=== PATIENT | female | born 1940 | race Asian ===

== ENCOUNTER 2018-11-12 18:32 | Inpatient (IN) | payer MEDICARE, OTHER ==
[~2018-11-12] VITALS: Ht 157.5 cm; Wt 40.0 kg
[~2018-11-12 18:32] MED LIST: AMLODIPINE BESY10 MG ORAL; ATORVASTATIN CA10 MG ORAL; COREG6.25 MG ORAL; DEPAKOTE ER250 MG ORAL; EPOGEN20000 UNI1 SUBQ; FERROUS SULFAT325 MG ORAL; FOLIC ACID1 MG ORAL; HYDRALAZINE HCL50 MG ORAL; MIRTAZAPINE15 MG ORAL; QUETIAPINE FUM100 MG ORAL
--- NOTE | 2018-11-12 19:10 | Emergency Room Report ---
History of Present Illness General Chief Complaint: General Complaint Source: Medical Record, EMS Present Illness HPI Patient is a 78-year-old female [facility] after persistent infection to right lower extremity. Patient was noted to have been on oral antibiotics. Patient had been noted to have increased discomfort to her right leg. Patient had been sent in for further evaluation and treatment and possible IV antibiotics.Patient had been noted to have prior history of chronic debilitation. History is markedly limited by patient's mental status. History was obtained from old medical medical record. Allergies: Coded Allergies: No Known Allergies (Unverified , 11/12/18) Patient History Past Medical History: see triage record Now: No Reviewed Nursing Documentation: PMH: Agreed; PSxH: Agreed Nursing Documentation-PMH Past Medical History: No History, Except For Hx Hypertension: Yes Hx Diabetes: Yes Hx Dialysis: No - ACUTE KIDNEY FAILURE History Of Psychiatric Problem: Yes - SCHIZOPHRENIA, BIPOLAR, DEPRESSION Review of Systems All Other Systems: limited - by poor historian Physical Exam Vital Signs Date Time Temp Pulse Resp B/P (MAP) Pulse Ox O2 Delivery O2 Flow Rate FiO2 11/12/18 18:10 74 20 148/90 (109) 97 Room Air Procedures Incision and Drainage Incision and Drainage : Consent: Emergent Site: right thigh Blade Size: 11 I & D Procedure: betadine prep, sterile drapes applied, sterile dressing applied Wound Location: lower extremity Wound's Depth, Shape: into muscle Wound Length (cm): 3 Wound Explored: clean Irrigated w/ Saline (ccs): 60 Anesthesia: Lidocaine w/ Epi Volume Anesthetic (ccs): 8 Splint Applied?: No Patient Tolerated: Well Complications: None Progress Drained approximately 1 L of purulent material. Medical Decision Making Diagnostic Impression: Primary Impression: Abscess of right hip Additional Impressions: Renal insufficiency Dementia ER Course Patient presented for right sided skin infection. Differential diagnosis include was not limited to cellulitis, abscess, tumor, hematoma among others. Patient was noted to have a large fluctuant area to the right hip. laboratory testing was ordered. Dr. Nate Beltran was contacted for inpatient management. . Dr. James was contacted for surgical consult. Labs Test 11/12/18 18:40 White Blood Count 9.5 K/UL (4.8-10.8) Red Blood Count 3.22 M/UL (4.20-5.40) Hemoglobin 9.5 G/DL (12.0-16.0) Hematocrit 28.6 % (37.0-47.0) Mean Corpuscular Volume 89 FL (80-99) Mean Corpuscular Hemoglobin 29.5 PG (27.0-31.0) Mean Corpuscular Hemoglobin Concent 33.2 G/DL (32.0-36.0) Red Cell Distribution Width 13.2 % (11.6-14.8) Platelet Count 586 K/UL (150-450) Mean Platelet Volume 3.6 FL (6.5-10.1) Neutrophils (%) (Auto) 76.5 % (45.0-75.0) Lymphocytes (%) (Auto) 19.5 % (20.0-45.0) Monocytes (%) (Auto) 2.6 % (1.0-10.0) Eosinophils (%) (Auto) 0.5 % (0.0-3.0) Basophils (%) (Auto) 0.9 % (0.0-2.0) Urine Color Red Urine Appearance Cloudy Urine pH 7 (4.5-8.0) Urine Specific [place] 1.015 (1.005-1.035) Urine Protein 3+ (NEGATIVE) Urine Glucose (UA) Negative (NEGATIVE) Urine Ketones 1+ (NEGATIVE) Urine Blood 5+ (NEGATIVE) Urine Nitrite Negative (NEGATIVE) Urine Bilirubin Negative (NEGATIVE) Urine Urobilinogen Normal MG/DL (0.0-1.0) Urine Leukocyte Esterase 1+ (NEGATIVE) Urine RBC Tntc /HPF (0 - 2) Urine WBC 20-30 /HPF (0 - 2) Urine Squamous Epithelial Cells Few /LPF (NONE/OCC) Urine Bacteria Many /HPF (NONE) Sodium Level 133 MMOL/L (136-145) Potassium Level 4.8 MMOL/L (3.5-5.1) Chloride Level 99 MMOL/L (98-107) Carbon Dioxide Level 21 MMOL/L (21-32) Anion Gap 13 mmol/L (5-15) Blood Urea Nitrogen 67 mg/dL (7-18) Creatinine 5.4 MG/DL (0.55-1.30) Estimat Glomerular Filtration Rate mL/min (>60) Glucose Level 284 MG/DL (74-106) Lactic Acid Level 1.40 mmol/L (0.4-2.0) Calcium Level 10.1 MG/DL (8.5-10.1) Total Bilirubin 0.2 MG/DL (0.2-1.0) Aspartate Amino Transf (AST/SGOT) 44 U/L (15-37) Alanine Aminotransferase (ALT/SGPT) 32 U/L (12-78) Alkaline Phosphatase 121 U/L (46-116) Total Protein 9.1 G/DL (6.4-8.2) Albumin 2.7 G/DL (3.4-5.0) Globulin 6.4 g/dL Albumin/Globulin Ratio 0.4 (1.0-2.7) Last Vital Signs Date Time Temp Pulse Resp B/P (MAP) Pulse Ox O2 Delivery O2 Flow Rate FiO2 11/12/18 18:10 74 20 148/90 (109) 97 Room Air Celestine Louis MD November 12, 2018 19:10
[2018-11-12 19:15] VITALS: BP 148/90
[2018-11-12 19:15] LABS: APPEARANCE,URINE CLOUDY; BILIRUBIN, URINE NEGATIVE (NEGATIVE); COLOR,URINE RED; GLUCOSE, URINE (UA) NEGATIVE (NEGATIVE); KETONES,URINE 1+ (NEGATIVE); LEUKOCYTE ESTERASE ,URINE 1+ (NEGATIVE); NITRITE,URINE NEGATIVE (NEGATIVE); PH,URINE 7 (4.5-8.0); PROTEIN,URINE 3+ (NEGATIVE); UROBILINOGEN,URINE NORMAL MG/DL (0.0-1.0)
[2018-11-12 19:22] LABS: BASOPHILS % (AUTO) 0.9 % (0.0-2.0); EOSINOPHILS % (AUTO) 0.5 % (0.0-3.0); HEMATOCRIT 28.6 % (37.0-47.0); HEMOGLOBIN 9.5 G/DL (12.0-16.0); LYMPHOCYTES % (AUTO) 19.5 % (20.0-45.0); MEAN CORPUSCULAR VOLUME 89 FL (80-99); MONOCYTES % (AUTO) 2.6 % (1.0-10.0); NEUTROPHILS % (AUTO) 76.5 % (45.0-75.0); PLATELET COUNT 586 K/UL (150-450); RED BLOOD COUNT 3.22 M/UL (4.20-5.40); RED CELL DISTRIBUTION WIDTH 13.2 % (11.6-14.8); WHITE BLOOD COUNT 9.5 K/UL (4.8-10.8)
[2018-11-12 19:31] LABS: ANION GAP 13 mmol/L (5-15); BLOOD UREA NITROGEN 67 mg/dL (7-18); CALCIUM 10.1 MG/DL (8.5-10.1); CARBON DIOXIDE 21 MMOL/L (21-32); CHLORIDE 99 MMOL/L (98-107); CREATININE 5.4 MG/DL (0.55-1.30); POTASSIUM 4.8 MMOL/L (3.5-5.1); SODIUM 133 MMOL/L (136-145)
[2018-11-12 19:36] LABS: ALANINE AMINOTRANSFERASE 32 U/L (12-78); ALBUMIN 2.7 G/DL (3.4-5.0); ALBUMIN/GLOBULIN RATIO 0.4 (1.0-2.7); ALKALINE PHOSPHATASE 121 U/L (46-116); ASPARTATE AMINO TRANSFERASE 44 U/L (15-37); BILIRUBIN,TOTAL 0.2 MG/DL (0.2-1.0)
--- NOTE | 2018-11-12 20:29 | Consultation ---
History of Present Illness General Date patient seen: November 12, 2018 Reason for Hospitalization: General Complaint Present Illness HPI 78 year old female senior living resident with multiple medical comorbidities has had right hip cellulitis which has not improved with oral antibiotics. [place] [facility] [place] and considerations of IV Abx. Noted to have abscess in area of cellulitis. Initial I&D done by ED physician to evaluate for abscess and once significant pus evacuated surgery called to evaluate and assist with care. patient seen, chart reviewed, patient examined. she is awake , alert, and follow simple commands but not communicative. no n/v/f/c. no leukocytosis. HD stable. Allergies: Coded Allergies: No Known Allergies (Unverified , 11/12/18) Medication History Scheduled Amlodipine Besylate* (Amlodipine Besylate*), 10 MG ORAL DAILY, (Reported) Atorvastatin Calcium* (Lipitor*), 10 MG ORAL BEDTIME, (Reported) Carvedilol (Coreg), 6.25 MG ORAL EVERY 12 HOURS, (Reported) Divalproex Sodium* (Depakote Er*), 125 MG ORAL EVERY 12 HOURS, (Reported) Epoetin Thomas (Epogen), 5,000 UNIT SUBQ EVERY OTHER DAY, (Reported) Ferrous Sulfate* (Ferrous Sulfate*), 325 MG ORAL THREE TIMES A DAY, (Reported) Folic Acid* (Folic Acid*), 1 MG ORAL DAILY, (Reported) Hydralazine Hcl* (Hydralazine Hcl*), 50 MG ORAL EVERY 8 HOURS, (Reported) Mirtazapine* (Remeron*), 15 MG ORAL BEDTIME, (Reported) Quetiapine Fumarate* (Seroquel*), 100 MG ORAL QHS, (Reported) Patient History Limited by: age, medical condition History Provided By: Medical Record, PMD Healthcare decision maker Resuscitation status Advanced Directive on File Past Medical/Surgical History Past Medical/Surgical History: (1) Abscess of right hip Review of Systems Review of Symptoms cannot obtain given medical condition and neuro Physical Exam Physical Exam General appearance: alert, cooperative, no distress, appears stated age Head: Normocephalic, without obvious abnormality, atraumatic Eyes: conjunctivae/corneas clear. PERRL, EOM's intact. Fundi benign Throat: Lips, mucosa, and tongue normal. Teeth and gums normal Neck: supple, symmetrical, trachea midline, no adenopathy, thyroid: not enlarged, symmetric, no tenderness/mass/nodules, no carotid bruit and no JVD Lungs: clear to auscultation bilaterally Heart: regular rate and rhythm, S1, S2 normal, no murmur, click, rub or gallop Abdomen: soft, non-tender. Bowel sounds normal. No masses, no organomegaly Extremities: extremities normal, atraumatic, no cyanosis or edema. right hip with large area of erythema and cellulitis. small 1cm eschar noted at apex of abscess. Pulses: 2+ and symmetric Skin: Skin color, texture, turgor normal. No rashes or lesions Neurologic: Grossly normal Last 24 Hour Vital Signs Date Time Temp Pulse Resp B/P (MAP) Pulse Ox O2 Delivery O2 Flow Rate FiO2 11/12/18 18:10 74 20 148/90 (109) 97 Room Air Laboratory Tests Test 11/12/18 18:40 White Blood Count 9.5 K/UL (4.8-10.8) Red Blood Count 3.22 M/UL (4.20-5.40) L Hemoglobin 9.5 G/DL (12.0-16.0) L Hematocrit 28.6 % (37.0-47.0) L Mean Corpuscular Volume 89 FL (80-99) Mean Corpuscular Hemoglobin 29.5 PG (27.0-31.0) Mean Corpuscular Hemoglobin Concent 33.2 G/DL (32.0-36.0) Red Cell Distribution Width 13.2 % (11.6-14.8) Platelet Count 586 K/UL (150-450) H Mean Platelet Volume 3.6 FL (6.5-10.1) L Neutrophils (%) (Auto) 76.5 % (45.0-75.0) H Lymphocytes (%) (Auto) 19.5 % (20.0-45.0) L Monocytes (%) (Auto) 2.6 % (1.0-10.0) Eosinophils (%) (Auto) 0.5 % (0.0-3.0) Basophils (%) (Auto) 0.9 % (0.0-2.0) Urine Color Red Urine Appearance Cloudy Urine pH 7 (4.5-8.0) Urine Specific [place] 1.015 (1.005-1.035) Urine Protein 3+ (NEGATIVE) H Urine Glucose (UA) Negative (NEGATIVE) Urine Ketones 1+ (NEGATIVE) H Urine Blood 5+ (NEGATIVE) H Urine Nitrite Negative (NEGATIVE) Urine Bilirubin Negative (NEGATIVE) Urine Urobilinogen Normal MG/DL (0.0-1.0) Urine Leukocyte Esterase 1+ (NEGATIVE) H Urine RBC Tntc /HPF (0 - 2) H Urine WBC 20-30 /HPF (0 - 2) H Urine Squamous Epithelial Cells Few /LPF (NONE/OCC) Urine Bacteria Many /HPF (NONE) H Sodium Level 133 MMOL/L (136-145) L Potassium Level 4.8 MMOL/L (3.5-5.1) Chloride Level 99 MMOL/L (98-107) Carbon Dioxide Level 21 MMOL/L (21-32) Anion Gap 13 mmol/L (5-15) Blood Urea Nitrogen 67 mg/dL (7-18) H Creatinine 5.4 MG/DL (0.55-1.30) H Estimat Glomerular Filtration Rate mL/min (>60) Glucose Level 284 MG/DL (74-106) H Lactic Acid Level 1.40 mmol/L (0.4-2.0) Calcium Level 10.1 MG/DL (8.5-10.1) Total Bilirubin 0.2 MG/DL (0.2-1.0) Aspartate Amino Transf (AST/SGOT) 44 U/L (15-37) H Alanine Aminotransferase (ALT/SGPT) 32 U/L (12-78) Alkaline Phosphatase 121 U/L (46-116) H Total Protein 9.1 G/DL (6.4-8.2) H Albumin 2.7 G/DL (3.4-5.0) L Globulin 6.4 g/dL Albumin/Globulin Ratio 0.4 (1.0-2.7) L Height (Feet): 5 Height (Inches): 2.00 Weight (Pounds): 90 Medications Current Medications Medications (Trade) Dose Ordered Sig/Javier Route PRN Reason Start Time Stop Time Status Last Admin Dose Admin Acetaminophen (Tylenol) 650 mg Q4H PRN ORAL Mild Pain/Temp > 100.5 11/12/18 20:00 12/12/18 19:59 Amlodipine Besylate (Norvasc) 10 mg DAILY ORAL 11/13/18 09:00 12/13/18 08:59 UNV Carvedilol (Coreg) 6.25 mg EVERY 12 HOURS ORAL 11/12/18 21:00 12/12/18 20:59 UNV Dextrose/Sodium Chloride 1,000 ml @ 100 mls/hr Q10H IV 11/12/18 20:00 12/12/18 19:59 Ferrous Sulfate (Feosol) 325 mg THREE TIMES A DAY ORAL 11/13/18 09:00 12/13/18 08:59 UNV Folic Acid (Folate) 1 mg DAILY ORAL 11/13/18 09:00 12/13/18 08:59 UNV Hydralazine HCl (Apresoline) 50 mg EVERY 8 HOURS ORAL 11/12/18 22:00 12/12/18 21:59 UNV Mirtazapine (Remeron) 15 mg BEDTIME ORAL 11/12/18 21:00 12/12/18 20:59 UNV Ondansetron HCl (Zofran) 0.5 mg Q8H PRN IVP Nausea & Vomiting 11/12/18 20:00 12/12/18 19:59 Quetiapine Fumarate (SEROquel) 100 mg QHS ORAL 11/12/18 21:00 12/12/18 20:59 UNV Assessment/Plan Problem List: (1) Abscess of right hip Assessment & Plan: 78F with abscess of right hip, large, deep. on exam mainly looks like cellulitis but once abscess drained significant fluid it was apparent that it was much deeper. proper care necessary and unfortunately unable to get in contact with family. called daughter without reply. abscess needs drainage, washout and proper care. medically necessary. -see procedure note; incision made and debris and sloth washed out with excision of necrotic tissue. wound irrigated with copious NS. wound packed -okay for diet -Nursing to do packing and dressing TID -IV abx -thank you ICD Codes: L02.415 - Cutaneous abscess of right lower limb SNOMED: [id number] Camilo James November 12, 2018 20:29
--- NOTE | 2018-11-12 20:34 | Operative Note - PDOC ---
Operative Note Operative Note Date of Operation/Procedure: November 12, 2018 Pre-op Diagnosis: large right hip abscess Procedure: incision and drainage of right hip abscess with excisional debridement of non viable necrotic tissue and debris. Post-op Diagnosis: large right hip abscess with necrotic non viable tissue. Surgeon: Camilo James MD Anesthesia: local Specimen: yes Complications: none Condition: stable Estimated Blood Loss: minimal Drains: none Implant(s) used?: No Indications for Procedure 78F with abscess of right hip, large, deep. on exam mainly looks like cellulitis but once abscess drained significant fluid it was apparent that it was much deeper. necrotic and non viable tissue noted requiring debridement proper care necessary and unfortunately unable to get in contact with family. called daughter without reply. abscess needs drainage, washout and proper care. medically necessary. Description of Procedure patient made comfortable in ED procedure room. placed in left lateral decubitus position. right hip prepped and draped. 1% lido with epi infiltrated in proposed skin incision at apex of wound. using a fresh #11 scalpel a 5cm incision was made to connect with prior initial I&D diagnostic by ED physician. the necrotic eschar cap was excision from the apex. once open the remaining pus evacuated. per report near total few hundred cc pus evacuated. necrotic fat and soft tissue was excised with scissors and scalpel down to healthy tissue which was at fascial and muscle layer. once complete wound irrigated with copious NS. at completion the wound bed was estimated at 20 cm cranial to caudal and 10cm lateral to medical almost around 1/2 of the thigh. wound bed was 3 cm deep and tunneling in all directions. packing and dressing applied. patient tolerated well. care instructions placed in chart. thank you Camilo James November 12, 2018 20:34
[2018-11-12 20:35] VITALS: BP 145/88
--- NOTE | 2018-11-12 21:50 | Diagnostic Imaging Report ---
EXAM: US Retroperitoneal Limited, Renal CLINICAL HISTORY: RENAL-A TECHNIQUE: Real-time ultrasound of the retroperitoneum (limited) with image documentation. COMPARISON: No relevant prior studies available. FINDINGS: Right kidney: Right kidney measures 9.8 x 3.0 cm. No hydronephrosis. Renal cyst measuring 1.6 cm. Small hypoechoic focus measuring 8 mm. Left kidney: Left kidney measures 9.1 x 3.9 cm. Pelvocaliectasis. Bladder: Bladder volume 265 mL. IMPRESSION: Left renal pelvocaliectasis.
[2018-11-12 22:00] VITALS: BP 162/86
[2018-11-12] MEDS: D5NS 1,000 ML IV SCH (23:10)
[2018-11-12] MEDS: HydrALAZINE 50mg tab ORAL SCH (23:16)
[2018-11-12] MEDS: Carvedilol 6.25mg Tab ORAL SCH (23:18)
[2018-11-13] VITALS: BP 125/58
[2018-11-13 04:00] VITALS: BP 137/79
[2018-11-13] MEDS: D5NS 1,000 ML IV SCH ×3 (06:00→18:05)
[2018-11-13 06:53] LABS: ANION GAP 11 mmol/L (5-15); BLOOD UREA NITROGEN 64 mg/dL (7-18); CARBON DIOXIDE 21 MMOL/L (21-32); CHLORIDE 106 MMOL/L (98-107); CREATININE 5.3 MG/DL (0.55-1.30); SODIUM 138 MMOL/L (136-145)
[2018-11-13 06:57] LABS: ALANINE AMINOTRANSFERASE 19 U/L (12-78); ALBUMIN 1.9 G/DL (3.4-5.0); ALBUMIN/GLOBULIN RATIO 0.4 (1.0-2.7); ALKALINE PHOSPHATASE 65 U/L (46-116); ASPARTATE AMINO TRANSFERASE 25 U/L (15-37); BILIRUBIN,TOTAL 0.2 MG/DL (0.2-1.0)
[2018-11-13] MEDS: HydrALAZINE 50mg tab ORAL SCH ×3 (07:09→21:09)
[2018-11-13 08:00] VITALS: BP 147/73
--- NOTE | 2018-11-13 09:00 | History and Physical Report ---
DATE OF ADMISSION: 11/12/2018 CHIEF COMPLAINT: Right hip abscess. HISTORY OF PRESENT ILLNESS: The patient is a 78-year-old female. She has a history of schizophrenia, chronic kidney disease, hypertension, and diabetes. Recently, I was by the halfway that the patient developed a cellulitis on the hip. She was started on oral antibiotic therapy. After several days ago, the cellulitis was not improving. She was transferred to the emergency room. There, she was noted to have a large abscess on the right hip, that was I and D by the ER physician. Surgery also saw the patient in the emergency room. The patient has been started on broad-spectrum IV antibiotic therapy. Cultures are currently pending. The patient is admitted for further evaluation and care. PAST MEDICAL HISTORY: As above. PAST SURGICAL HISTORY: Unknown. CURRENT MEDICATIONS: Reconciled and reviewed. ALLERGIES: None. FAMILY HISTORY: None. SOCIAL HISTORY: There is no known history of tobacco, ethanol, or drugs. REVIEW OF SYSTEMS: Unobtainable as the patient is confused. PHYSICAL EXAMINATION: VITAL SIGNS: Temperature 97.7, pulse 98, respirations 20, and blood pressure 137/79. GENERAL: The patient is well developed, no apparent distress. HEART: Regular rate and rhythm. LUNGS: Clear. ABDOMEN: Soft. EXTREMITIES: Without clubbing or cyanosis. There is a large area of fluctuance, erythema on the right hip noted. LABORATORY DATA: Sodium 133, potassium 4.8, chloride 99, BUN 67, creatinine was 5.4. ASSESSMENT: This is an elderly female, admitted with a history of diabetes, schizophrenia, hypertension, chronic kidney disease, admitted with a right hip abscess, status post I and D. PLAN: IV antibiotics. Followup cultures. Continue gentle hydration. Check the renal ultrasound. Cardiology, ID, Surgery, and Renal consultations to be obtained. Plan of care was discussed with the patient's family. Nate Beltran M.D. DR: JEANNINE JOB#: [id number] CC:
[2018-11-13] MEDS: Carvedilol 6.25mg Tab ORAL SCH ×2 (09:48→20:47)
[2018-11-13 12:00] VITALS: BP 149/62
[2018-11-13] MEDS: LORazepam Inj 2mg/ml 1ml IV PRN ×2 (12:41→22:10)
--- NOTE | 2018-11-13 13:57 | Surgery Progress Note ---
Surgery Progress Note Subjective Procedure Performed incision and drainage of right hip abscess with excisional debridement of non viable necrotic tissue and debris. Additional Comments no acute events afebrile HD stable nursing to change dressings as scheduled Objective Last 24 Hour Vital Signs Date Time Temp Pulse Resp B/P (MAP) Pulse Ox O2 Delivery O2 Flow Rate FiO2 11/13/18 12:00 96.1 64 18 149/62 (91) 100 11/13/18 09:48 60 147/73 11/13/18 09:48 60 147/73 11/13/18 09:00 Room Air 11/13/18 08:00 95.9 60 18 147/73 (97) 100 11/13/18 07:09 137/79 11/13/18 04:00 98.1 20 137/79 (98) 97 11/13/18 00:00 97.7 20 125/58 (80) 100 11/12/18 23:18 98 162/86 11/12/18 23:16 162/86 11/12/18 22:30 Nasal Cannula 2.0 11/12/18 22:00 98.2 20 162/86 (111) 100 11/12/18 21:50 98.0 20 148/90 97 Room Air 11/12/18 20:35 98.1 82 20 145/88 98 Room Air 11/12/18 19:15 98.0 20 148/90 97 Room Air 11/12/18 19:15 74 20 Room Air 11/12/18 18:10 74 20 148/90 (109) 97 Room Air I&O Intake and Output 11/12/18 11/13/18 19:00 07:00 Intake Total 820 ml Balance 820 ml Intake IV Total 800 ml Other 20 ml # Voids 2 Laboratory Tests Test 11/12/18 18:40 11/13/18 06:22 White Blood Count 9.5 K/UL (4.8-10.8) Red Blood Count 3.22 M/UL (4.20-5.40) L Hemoglobin 9.5 G/DL (12.0-16.0) L Hematocrit 28.6 % (37.0-47.0) L Mean Corpuscular Volume 89 FL (80-99) Mean Corpuscular Hemoglobin 29.5 PG (27.0-31.0) Mean Corpuscular Hemoglobin Concent 33.2 G/DL (32.0-36.0) Red Cell Distribution Width 13.2 % (11.6-14.8) Platelet Count 586 K/UL (150-450) H Mean Platelet Volume 3.6 FL (6.5-10.1) L Neutrophils (%) (Auto) 76.5 % (45.0-75.0) H Lymphocytes (%) (Auto) 19.5 % (20.0-45.0) L Monocytes (%) (Auto) 2.6 % (1.0-10.0) Eosinophils (%) (Auto) 0.5 % (0.0-3.0) Basophils (%) (Auto) 0.9 % (0.0-2.0) Urine Color Red Urine Appearance Cloudy Urine pH 7 (4.5-8.0) Urine Specific [place] 1.015 (1.005-1.035) Urine Protein 3+ (NEGATIVE) H Urine Glucose (UA) Negative (NEGATIVE) Urine Ketones 1+ (NEGATIVE) H Urine Blood 5+ (NEGATIVE) H Urine Nitrite Negative (NEGATIVE) Urine Bilirubin Negative (NEGATIVE) Urine Urobilinogen Normal MG/DL (0.0-1.0) Urine Leukocyte Esterase 1+ (NEGATIVE) H Urine RBC Tntc /HPF (0 - 2) H Urine WBC 20-30 /HPF (0 - 2) H Urine Squamous Epithelial Cells Few /LPF (NONE/OCC) Urine Bacteria Many /HPF (NONE) H Sodium Level 133 MMOL/L (136-145) L 138 MMOL/L (136-145) Potassium Level 4.8 MMOL/L (3.5-5.1) 4.0 MMOL/L (3.5-5.1) Chloride Level 99 MMOL/L (98-107) 106 MMOL/L (98-107) Carbon Dioxide Level 21 MMOL/L (21-32) 21 MMOL/L (21-32) Anion Gap 13 mmol/L (5-15) 11 mmol/L (5-15) Blood Urea Nitrogen 67 mg/dL (7-18) H 64 mg/dL (7-18) H Creatinine 5.4 MG/DL (0.55-1.30) H 5.3 MG/DL (0.55-1.30) H Estimat Glomerular Filtration Rate mL/min (>60) mL/min (>60) Glucose Level 284 MG/DL (74-106) H 236 MG/DL (74-106) H Lactic Acid Level 1.40 mmol/L (0.4-2.0) Calcium Level 10.1 MG/DL (8.5-10.1) 9.0 MG/DL (8.5-10.1) Total Bilirubin 0.2 MG/DL (0.2-1.0) 0.2 MG/DL (0.2-1.0) Aspartate Amino Transf (AST/SGOT) 44 U/L (15-37) H 25 U/L (15-37) Alanine Aminotransferase (ALT/SGPT) 32 U/L (12-78) 19 U/L (12-78) Alkaline Phosphatase 121 U/L (46-116) H 65 U/L (46-116) Total Protein 9.1 G/DL (6.4-8.2) H 6.4 G/DL (6.4-8.2) Albumin 2.7 G/DL (3.4-5.0) L 1.9 G/DL (3.4-5.0) L Globulin 6.4 g/dL 4.5 g/dL Albumin/Globulin Ratio 0.4 (1.0-2.7) L 0.4 (1.0-2.7) L Assessment Post-op Diagnosis large right hip abscess with necrotic non viable tissue. Plan Problems: (1) Abscess of right hip Assessment & Plan: 78F with abscess of right hip, large, deep. on exam mainly looks like cellulitis but once abscess drained significant fluid it was apparent that it was much deeper. proper care necessary and unfortunately unable to get in contact with family. called daughter without reply. abscess needs drainage, washout and proper care. medically necessary. -see procedure note; incision made and debris and sloth washed out with excision of necrotic tissue. wound irrigated with copious NS. wound packed -okay for diet -Nursing to do packing and dressing TID -IV abx -thank you Camilo James Nov 13, 2018 13:57
[2018-11-13 16:00] VITALS: BP 128/63
--- NOTE | 2018-11-13 16:35 | Consultation ---
Consult Note Consult Note asked to eval for Renal failure Slovak speaking- Confused per driver license reviewing officer Patient is a 78-year-old female [facility] after persistent infection to right lower extremity. Patient was noted to have been on oral antibiotics. Patient had been noted to have increased discomfort to her right leg. Patient had been sent in for further evaluation and treatment and possible IV antibiotics.Patient had been noted to have prior history of chronic debilitation. History is markedly limited by patient's mental status. History was obtained from old medical medical record. No Known Allergies (Unverified , 11/12/18) Past Medical History: No History, Except For Hx Hypertension: Yes Hx Diabetes: Yes Hx Dialysis: No - ACUTE KIDNEY FAILURE History Of Psychiatric Problem: Yes - SCHIZOPHRENIA, BIPOLAR, DEPRESSION examined data reviewed . Assessment/Plan Renal failure: - Acute , due to meds- Obstruction.... - Chronic: Due to underlying ?HTN / DM ... Urinary Retention in ANJEL HyperGlycemia / DM / Proteinuria Anemia Right hip abcess UTI bailey cath monitor I&O Hydrate Keep BP and BS in check Avoid Nephrotoxics Antibiotics and surgical fu Urine studies William Blackwood MD Nov 13, 2018 16:35
[2018-11-13] MEDS: Docusate 100mg cap ORAL SCH (17:53)
[2018-11-13] MEDS ORDERED: Docusate 100mg cap ORAL SCH (18:00)
[2018-11-13 20:00] VITALS: BP 146/60
[2018-11-13] MEDS: Heparin 5000 units/ml inj SUBQ SCH (20:54)
[2018-11-14] VITALS: BP 160/92
[2018-11-14 04:00] VITALS: BP 137/63
[2018-11-14] MEDS: D5NS 1,000 ML IV SCH ×2 (05:30→22:00)
[2018-11-14] MEDS: HydrALAZINE 50mg tab ORAL SCH ×3 (06:08→22:46)
[2018-11-14 06:47] LABS: HEMATOCRIT 23.6 % (37.0-47.0); HEMOGLOBIN 7.5 G/DL (12.0-16.0); MEAN CORPUSCULAR VOLUME 92 FL (80-99); PLATELET COUNT 450 K/UL (150-450); RED BLOOD COUNT 2.56 M/UL (4.20-5.40); RED CELL DISTRIBUTION WIDTH 13.9 % (11.6-14.8); WHITE BLOOD COUNT 3.8 K/UL (4.8-10.8)
[2018-11-14 07:19] LABS: ALANINE AMINOTRANSFERASE 19 U/L (12-78); ALBUMIN 1.8 G/DL (3.4-5.0); ALBUMIN/GLOBULIN RATIO 0.4 (1.0-2.7); ALKALINE PHOSPHATASE 56 U/L (46-116); ANION GAP 9 mmol/L (5-15); ASPARTATE AMINO TRANSFERASE 18 U/L (15-37); BILIRUBIN,TOTAL 0.1 MG/DL (0.2-1.0); BLOOD UREA NITROGEN 54 mg/dL (7-18); CALCIUM 8.8 MG/DL (8.5-10.1); CARBON DIOXIDE 21 MMOL/L (21-32); CHLORIDE 113 MMOL/L (98-107); CHOLESTEROL 138 MG/DL (< 200); CREATINE KINASE 59 U/L (26-308); CREATININE 5.3 MG/DL (0.55-1.30); FERRITIN 242 NG/ML (8-388); GAMMA GLUTAMYL TRANSPEPTIDASE 15 U/L (5-85); HDL CHOLESTEROL 39 MG/DL (40-60); PHOSPHORUS 6.2 MG/DL (2.5-4.9); SODIUM 143 MMOL/L (136-145); TRIGLYCERIDES 134 MG/DL (30-150)
[2018-11-14 07:56] LABS: % IRON SATURATION 22 % (15-50); IRON 25 ug/dL (50-175); TOTAL IRON BINDING CAPACITY 115 ug/dL (250-450)
[2018-11-14 08:00] VITALS: BP 155/68
[2018-11-14] MEDS: Docusate 100mg cap ORAL SCH ×3 (09:42→17:31)
[2018-11-14] MEDS: Carvedilol 6.25mg Tab ORAL SCH ×2 (09:42→20:58)
[2018-11-14] MEDS: Heparin 5000 units/ml inj SUBQ SCH ×2 (09:43→20:57)
[2018-11-14] MEDS: LORazepam Inj 2mg/ml 1ml IV PRN ×2 (10:48→15:13)
--- NOTE | 2018-11-14 11:32 | General Progress Note ---
Assessment/Plan Problem List: (1) Anemia due to acute blood loss ICD Codes: D62 - Acute posthemorrhagic anemia SNOMED: 319461094 (2) Dementia ICD Codes: F03.90 - Unspecified dementia without behavioral disturbance SNOMED: 75766249 (3) Renal insufficiency ICD Codes: N28.9 - Disorder of kidney and ureter, unspecified SNOMED: 715867742, 620853737 (4) Abscess of right hip ICD Codes: L02.415 - Cutaneous abscess of right lower limb SNOMED: 518285 Status: stable, progressing Assessment/Plan: cont current rx repeat cbc and type and screen may need transfusion epo/iron replacement abx per id follow up cultures Subjective ROS Limited/Unobtainable: Yes Constitutional: Reports: malaise, weakness HEENT: Reports: no symptoms Cardiovascular: Reports: no symptoms Respiratory: Reports: no symptoms Gastrointestinal/Abdominal: Reports: no symptoms Genitourinary: Reports: no symptoms Neurologic/Psychiatric: Reports: no symptoms Endocrine: Reports: no symptoms Hematologic/Lymphatic: Reports: no symptoms Allergies: Coded Allergies: No Known Allergies (Unverified , 11/12/18) All Systems: reviewed and negative except above Subjective no events. bailey placed for urinary retention- pvr 800cc. decreased h/h noted. no bleeding noted. Objective Last 24 Hour Vital Signs Date Time Temp Pulse Resp B/P (MAP) Pulse Ox O2 Delivery O2 Flow Rate FiO2 11/14/18 09:42 71 155/68 11/14/18 09:42 71 155/68 11/14/18 09:00 Room Air 11/14/18 08:00 96.9 71 19 155/68 (97) 97 11/14/18 06:08 137/63 11/14/18 04:00 97.6 65 18 137/63 (87) 99 11/14/18 00:00 97.1 89 19 160/92 (114) 99 11/13/18 21:09 146/60 11/13/18 21:00 Room Air 11/13/18 20:47 69 146/60 11/13/18 20:00 97.7 69 19 146/60 (88) 98 11/13/18 16:00 96.2 58 18 128/63 (84) 98 11/13/18 14:00 149/62 11/13/18 12:00 96.1 64 18 149/62 (91) 100 Intake and Output 11/13/18 11/14/18 18:59 06:59 Intake Total 900 ml 150 ml Output Total 850 ml 950 ml Balance 50 ml -800 ml Intake Oral 50 ml IV Total 900 ml 100 ml Output Urine Total 850 ml 950 ml Laboratory Tests 11/14/18 05:00: Urine Eosinophils None seen, Urine Random Sodium 83 11/14/18 05:45: White Blood Count 3.8#L, Red Blood Count 2.56L, Hemoglobin 7.5L, Hematocrit 23.6L, Mean Corpuscular Volume 92, Mean Corpuscular Hemoglobin 29.3, Mean Corpuscular Hemoglobin Concent 31.9L, Red Cell Distribution Width 13.9, Platelet Count 450, Mean Platelet Volume 4.5L, Neutrophils (%) (Auto) , Lymphocytes (%) (Auto) , Monocytes (%) (Auto) , Eosinophils (%) (Auto) , Basophils (%) (Auto) , Differential Total Cells Counted 100, Neutrophils % ( Manual) 37L, Lymphocytes % (Manual) 54H, Monocytes % (Manual) 7, Eosinophils % ( Manual) 2, Basophils % (Manual) 0, Band Neutrophils 0, Platelet Estimate Adequate, Platelet Morphology Normal, Hypochromasia 1+, Sodium Level 143, Potassium Level 4.0, Chloride Level 113H, Carbon Dioxide Level 21, Anion Gap 9, Blood Urea Nitrogen 54H, Creatinine 5.3H, Estimat Glomerular Filtration Rate , Glucose Level 254H, Hemoglobin A1c 7.8H, Uric Acid 7.6H, Calcium Level 8.8, Phosphorus Level 6.2H, Magnesium Level 2.1, Iron Level 25L, Total Iron Binding Capacity 115L, Percent Iron Saturation 22, Unsaturated Iron Binding 90L, Ferritin 242, Total Bilirubin 0.1L, Gamma Glutamyl Transpeptidase 15, Aspartate Amino Transf (AST/SGOT) 18, Alanine Aminotransferase (ALT/SGPT) 19, Alkaline Phosphatase 56, Total Creatine Kinase 59, Troponin I 0.019, C-Reactive Protein, Quantitative 3.0H, Pro-B-Type Natriuretic Peptide 7643H, Total Protein 5.8L, Albumin 1.8L, Globulin 4.0, Albumin/Globulin Ratio 0.4L, Triglycerides Level 134 , Cholesterol Level 138, LDL Cholesterol 72, HDL Cholesterol 39L, Cholesterol/ HDL Ratio 3.5, Vitamin B12 Level 1212H, Folate 35.7, Thyroid Stimulating Hormone (TSH) 2.974 Height (Feet): 5 Height (Inches): 2.00 Weight (Pounds): 90 General Appearance: WD/WN, alert, confused Neck: supple Cardiovascular: normal rate, regular rhythm Respiratory/Chest: chest wall non-tender, lungs clear, normal breath sounds Abdomen: normal bowel sounds, non tender, soft, no organomegaly Edema: no edema noted Arm (L), no edema noted Arm (R), no edema noted Leg (L), no edema noted Leg (R), no edema noted Pedal (L), no edema noted Pedal (R), no edema noted Generalized Neurologic: alert, disoriented Nate Beltran MD Nov 14, 2018 11:32
[2018-11-14 12:00] VITALS: BP 146/79
[2018-11-14 12:23] LABS: BASOPHILS % (AUTO) 1.7 % (0.0-2.0); EOSINOPHILS % (AUTO) 2.7 % (0.0-3.0); HEMATOCRIT 25.7 % (37.0-47.0); HEMOGLOBIN 8.1 G/DL (12.0-16.0); LYMPHOCYTES % (AUTO) 39.4 % (20.0-45.0); MEAN CORPUSCULAR VOLUME 91 FL (80-99); MONOCYTES % (AUTO) 9.8 % (1.0-10.0); NEUTROPHILS % (AUTO) 46.5 % (45.0-75.0); PLATELET COUNT 479 K/UL (150-450); RED BLOOD COUNT 2.81 M/UL (4.20-5.40); RED CELL DISTRIBUTION WIDTH 14.1 % (11.6-14.8); WHITE BLOOD COUNT 3.8 K/UL (4.8-10.8)
--- NOTE | 2018-11-14 15:28 | Nephrology Progress Note ---
Assessment/Plan Problem List: (1) Abscess of right hip (2) Renal failure (ARF), acute on chronic (3) Urinary retention (4) Diabetes mellitus Assessment Renal failure: - Acute , due to meds- Obstruction.... - Chronic: Due to underlying ?HTN / DM ... Urinary Retention in ANJEL HyperGlycemia / DM / Proteinuria Anemia Right hip abcess UTI Plan bailey cath monitor I&O Hydrate Keep BP and BS in check Avoid Nephrotoxics Antibiotics and surgical fu Urine studies Subjective ROS Limited/Unobtainable: Yes Objective Objective Last 24 Hour Vital Signs Date Time Temp Pulse Resp B/P (MAP) Pulse Ox O2 Delivery O2 Flow Rate FiO2 11/14/18 14:20 146/79 11/14/18 12:00 96.3 69 20 146/79 (101) 98 11/14/18 09:42 71 155/68 11/14/18 09:42 71 155/68 11/14/18 09:00 Room Air 11/14/18 08:00 96.9 71 19 155/68 (97) 97 11/14/18 06:08 137/63 11/14/18 04:00 97.6 65 18 137/63 (87) 99 11/14/18 00:00 97.1 89 19 160/92 (114) 99 11/13/18 21:09 146/60 11/13/18 21:00 Room Air 11/13/18 20:47 69 146/60 11/13/18 20:00 97.7 69 19 146/60 (88) 98 11/13/18 16:00 96.2 58 18 128/63 (84) 98 Intake and Output 11/13/18 11/14/18 19:00 07:00 Intake Total 800 ml 250 ml Output Total 850 ml 950 ml Balance -50 ml -700 ml Intake Oral 50 ml IV Total 800 ml 200 ml Output Urine Total 850 ml 950 ml Laboratory Tests 11/14/18 05:00: Urine Eosinophils None seen, Urine Random Sodium 83 11/14/18 05:45: White Blood Count 3.8#L, Red Blood Count 2.56L, Hemoglobin 7.5L, Hematocrit 23.6L, Mean Corpuscular Volume 92, Mean Corpuscular Hemoglobin 29.3, Mean Corpuscular Hemoglobin Concent 31.9L, Red Cell Distribution Width 13.9, Platelet Count 450, Mean Platelet Volume 4.5L, Neutrophils (%) (Auto) , Lymphocytes (%) (Auto) , Monocytes (%) (Auto) , Eosinophils (%) (Auto) , Basophils (%) (Auto) , Differential Total Cells Counted 100, Neutrophils % ( Manual) 37L, Lymphocytes % (Manual) 54H, Monocytes % (Manual) 7, Eosinophils % ( Manual) 2, Basophils % (Manual) 0, Band Neutrophils 0, Platelet Estimate Adequate, Platelet Morphology Normal, Hypochromasia 1+, Sodium Level 143, Potassium Level 4.0, Chloride Level 113H, Carbon Dioxide Level 21, Anion Gap 9, Blood Urea Nitrogen 54H, Creatinine 5.3H, Estimat Glomerular Filtration Rate , Glucose Level 254H, Hemoglobin A1c 7.8H, Uric Acid 7.6H, Calcium Level 8.8, Phosphorus Level 6.2H, Magnesium Level 2.1, Iron Level 25L, Total Iron Binding Capacity 115L, Percent Iron Saturation 22, Unsaturated Iron Binding 90L, Ferritin 242, Total Bilirubin 0.1L, Gamma Glutamyl Transpeptidase 15, Aspartate Amino Transf (AST/SGOT) 18, Alanine Aminotransferase (ALT/SGPT) 19, Alkaline Phosphatase 56, Total Creatine Kinase 59, Troponin I 0.019, C-Reactive Protein, Quantitative 3.0H, Pro-B-Type Natriuretic Peptide 7643H, Total Protein 5.8L, Albumin 1.8L, Globulin 4.0, Albumin/Globulin Ratio 0.4L, Triglycerides Level 134 , Cholesterol Level 138, LDL Cholesterol 72, HDL Cholesterol 39L, Cholesterol/ HDL Ratio 3.5, Vitamin B12 Level 1212H, Folate 35.7, Thyroid Stimulating Hormone (TSH) 2.974 11/14/18 12:16: White Blood Count 3.8L, Red Blood Count 2.81L, Hemoglobin 8.1L, Hematocrit 25.7L , Mean Corpuscular Volume 91, Mean Corpuscular Hemoglobin 29.0, Mean Corpuscular Hemoglobin Concent 31.7L, Red Cell Distribution Width 14.1, Platelet Count 479H, Mean Platelet Volume 4.5L, Neutrophils (%) (Auto) 46.5, Lymphocytes (%) (Auto) 39.4, Monocytes (%) (Auto) 9.8, Eosinophils (%) (Auto) 2.7, Basophils (%) (Auto) 1.7 Height (Feet): 5 Height (Inches): 2.00 Weight (Pounds): 90 General Appearance: no apparent distress, lethargic Cardiovascular: normal rate Respiratory/Chest: decreased breath sounds Abdomen: soft William Blackwood MD Nov 14, 2018 15:28
[2018-11-14 16:00] VITALS: BP 138/64
[2018-11-14 20:00] VITALS: BP 99/71
[2018-11-14] MEDS ORDERED: Vancomycin 750mg/NS 275ml IVPB ONE ×2 (22:00)
[2018-11-15] VITALS: BP 150/86
[2018-11-15] MEDS: Piperacillin/Tazobactam 3.375 GM in NS 110 ML IVPB SCH ×2 (00:39→12:35)
--- NOTE | 2018-11-15 01:00 | Progress Note ---
DATE: 11/13/2018 CARDIOLOGY PROGRESS NOTE SUBJECTIVE: The patient is status post debridement of her wound. Antimicrobials will be initiated. The patient has improvement in her blood pressure parameters and is not in any respiratory distress. OBJECTIVE: VITAL SIGNS: Blood pressure 147/73, pulse 60, respiratory rate 18, and temperature 95.9. LUNGS: Clear. CARDIAC: Regular. Normal S1, S2. ABDOMEN: Soft. EXTREMITIES: No edema. SKIN: Wound site has dressing in place. LABORATORY DATA: Sodium 138, potassium 4, bicarb 21, BUN 64, creatinine 5.3, glucose 236, albumin 1.9. CBC is pending. IMPRESSION: 1. Infected decubitus. 2. Chronic kidney disease, stage 5. 3. Anemia due to chronic kidney disease. 4. Hypertensive heart disease. 5. Schizophrenia. 6. Diabetes mellitus type 2. PLAN: 1. Hydration. 2. Monitor cardiorenal parameters. 3. Await renal ultrasound. 4. Titrate antihypertensives. 5. Avoid any drug with nephrotoxic potential. Abel Stubbs M.D. DR: BOOM JOB#: [id number] CC:
--- NOTE | 2018-11-15 01:15 | Progress Note ---
DATE: 11/14/2018 CARDIOLOGY PROGRESS NOTE SUBJECTIVE: The patient had a Marroquin catheter placed. Urinary retention was noted by renal ultrasound. 800 mL of urine was obtained. Renal function remains unchanged. OBJECTIVE: VITAL SIGNS: Blood pressure 155/68, pulse 71, and respiratory rate 19. LUNGS: Clear. CARDIAC: Regular. Normal S1 and S2 with a fourth heart sound. ABDOMEN: Soft. EXTREMITIES: No edema. LABORATORY DATA: White count 3.8 and hemoglobin 8.1. Sodium 143, potassium 4, bicarbonate 21, BUN 54, and creatinine 5.3. Troponin is 0.019. Pro-natriuretic peptide 7600. TSH is normal. IMPRESSION: 1. Hip abscess with cellulitis, status post I and D. 2. Chronic kidney disease. 3. Obstructive uropathy. 4. Type 2 diabetes mellitus. 5. Anemia due to chronic kidney disease. 6. Volume overload due to renal failure as reflected by elevated natriuretic peptide assay. 7. Severe protein-calorie malnutrition. PLAN: 1. Recommend antimicrobials. 2. Wound care. 3. Monitor renal parameters with following placement of Marroquin catheter. 4. Protein supplement. 5. No role for diuresis. 6. Cautious uptitration of antihypertensives and avoiding of all drugs with nephrotoxic potential. Abel Stubbs M.D. DR: ARETHA JOB#: [id number] CC:
[2018-11-15] MEDS: LORazepam Inj 2mg/ml 1ml IV PRN ×3 (01:27→21:59)
[2018-11-15 04:00] VITALS: BP 160/80
[2018-11-15] MEDS: HydrALAZINE 50mg tab ORAL SCH ×3 (05:35→21:05)
[2018-11-15 07:07] LABS: EOSINOPHILS % (AUTO) 2.5 % (0.0-3.0); HEMATOCRIT 25.5 % (37.0-47.0); HEMOGLOBIN 8.3 G/DL (12.0-16.0); LYMPHOCYTES % (AUTO) 51.9 % (20.0-45.0); MEAN CORPUSCULAR VOLUME 91 FL (80-99); MONOCYTES % (AUTO) 8.9 % (1.0-10.0); NEUTROPHILS % (AUTO) 34.6 % (45.0-75.0); PLATELET COUNT 456 K/UL (150-450); RED CELL DISTRIBUTION WIDTH 14.2 % (11.6-14.8); WHITE BLOOD COUNT 3.9 K/UL (4.8-10.8)
[2018-11-15 07:14] LABS: ALANINE AMINOTRANSFERASE 24 U/L (12-78); ALBUMIN 2.2 G/DL (3.4-5.0); ALBUMIN/GLOBULIN RATIO 0.5 (1.0-2.7); ALKALINE PHOSPHATASE 68 U/L (46-116); ANION GAP 10 mmol/L (5-15); ASPARTATE AMINO TRANSFERASE 19 U/L (15-37); BILIRUBIN,TOTAL 0.2 MG/DL (0.2-1.0); BLOOD UREA NITROGEN 50 mg/dL (7-18); CALCIUM 9.3 MG/DL (8.5-10.1); CARBON DIOXIDE 21 MMOL/L (21-32); CHLORIDE 115 MMOL/L (98-107); CREATININE 5.2 MG/DL (0.55-1.30); PHOSPHORUS 5.9 MG/DL (2.5-4.9); POTASSIUM 4.3 MMOL/L (3.5-5.1); SODIUM 146 MMOL/L (136-145)
--- NOTE | 2018-11-15 07:32 | General Progress Note ---
Assessment/Plan Problem List: (1) Anemia due to acute blood loss ICD Codes: D62 - Acute posthemorrhagic anemia SNOMED: 946872243 (2) Dementia ICD Codes: F03.90 - Unspecified dementia without behavioral disturbance SNOMED: 36840212 (3) Renal insufficiency ICD Codes: N28.9 - Disorder of kidney and ureter, unspecified SNOMED: 803845353, 569517257 (4) Abscess of right hip ICD Codes: L02.415 - Cutaneous abscess of right lower limb SNOMED: 643630 Status: stable, progressing Assessment/Plan: cont current rx monitor h/h and labs may need transfusion epo/iron replacement abx per id follow up cultures encourage pos cont bailey for urinary retention Subjective ROS Limited/Unobtainable: Yes Constitutional: Reports: malaise, weakness HEENT: Reports: no symptoms Cardiovascular: Reports: no symptoms Respiratory: Reports: no symptoms Gastrointestinal/Abdominal: Reports: no symptoms Genitourinary: Reports: no symptoms Neurologic/Psychiatric: Reports: no symptoms Endocrine: Reports: no symptoms Hematologic/Lymphatic: Reports: no symptoms Allergies: Coded Allergies: No Known Allergies (Unverified , 11/12/18) All Systems: reviewed and negative except above Subjective no events. stable. hgb slightly better. no fever or chills. no sob. confused at baseline. Objective Last 24 Hour Vital Signs Date Time Temp Pulse Resp B/P (MAP) Pulse Ox O2 Delivery O2 Flow Rate FiO2 11/15/18 05:35 160/80 11/15/18 04:00 96.0 74 20 160/80 (106) 97 11/15/18 00:00 96.4 83 19 150/86 (107) 95 11/14/18 22:46 160/68 11/14/18 21:00 Room Air 11/14/18 20:58 74 120/68 11/14/18 20:00 97.1 74 20 99/71 (80) 99 11/14/18 16:00 96.1 60 16 138/64 (88) 97 11/14/18 14:20 146/79 11/14/18 12:00 96.3 69 20 146/79 (101) 98 11/14/18 09:42 71 155/68 11/14/18 09:42 71 155/68 11/14/18 09:00 Room Air 11/14/18 08:00 96.9 71 19 155/68 (97) 97 Intake and Output 11/14/18 11/15/18 19:00 07:00 Intake Total 1730 ml Output Total 600 ml 550 ml Balance 1130 ml -550 ml Intake Oral 100 ml IV Total 1630 ml Output Urine Total 600 ml 550 ml # Voids 1 Laboratory Tests 11/14/18 12:16: White Blood Count 3.8L, Red Blood Count 2.81L, Hemoglobin 8.1L, Hematocrit 25.7L , Mean Corpuscular Volume 91, Mean Corpuscular Hemoglobin 29.0, Mean Corpuscular Hemoglobin Concent 31.7L, Red Cell Distribution Width 14.1, Platelet Count 479H, Mean Platelet Volume 4.5L, Neutrophils (%) (Auto) 46.5, Lymphocytes (%) (Auto) 39.4, Monocytes (%) (Auto) 9.8, Eosinophils (%) (Auto) 2.7, Basophils (%) (Auto) 1.7 11/15/18 05:40: Urine Eosinophils [Pending] 11/15/18 06:15: White Blood Count 3.9L, Red Blood Count 2.80L, Hemoglobin 8.3L, Hematocrit 25.5L , Mean Corpuscular Volume 91, Mean Corpuscular Hemoglobin 29.7, Mean Corpuscular Hemoglobin Concent 32.7, Red Cell Distribution Width 14.2, Platelet Count 456H, Mean Platelet Volume 4.4L, Neutrophils (%) (Auto) 34.6L, Lymphocytes (%) (Auto) 51.9H, Monocytes (%) (Auto) 8.9, Eosinophils (%) (Auto) 2.5, Basophils (%) (Auto) 2.0, Sodium Level 146H, Potassium Level 4.3, Chloride Level 115H, Carbon Dioxide Level 21, Anion Gap 10, Blood Urea Nitrogen 50H, Creatinine 5.2H, Estimat Glomerular Filtration Rate , Glucose Level 193H, Uric Acid 7.8H, Calcium Level 9.3, Phosphorus Level 5.9H, Magnesium Level 2.1, Total Bilirubin 0.2, Aspartate Amino Transf (AST/SGOT) 19, Alanine Aminotransferase ( ALT/SGPT) 24, Alkaline Phosphatase 68, Total Protein 6.4, Albumin 2.2L, Globulin 4.2, Albumin/Globulin Ratio 0.5L Height (Feet): 5 Height (Inches): 2.00 Weight (Pounds): 90 Objective General Appearance: WD/WN, alert, confused Neck: supple Cardiovascular: normal rate, regular rhythm Respiratory/Chest: chest wall non-tender, lungs clear, normal breath sounds Abdomen: normal bowel sounds, non tender, soft, no organomegaly Edema: no edema noted Arm (L), no edema noted Arm (R), no edema noted Leg (L), no edema noted Leg (R), no edema noted Pedal (L), no edema noted Pedal (R), no edema noted Generalized Neurologic: alert, disoriented Nate Beltran MD Nov 15, 2018 07:32
[2018-11-15 08:00] VITALS: BP 130/66
[2018-11-15] MEDS: D5NS 1,000 ML IV SCH ×2 (08:00→17:42)
[2018-11-15] MEDS: Docusate 100mg cap ORAL SCH ×3 (09:00→17:42)
[2018-11-15] MEDS: Carvedilol 6.25mg Tab ORAL SCH ×2 (09:00→20:41)
[2018-11-15] MEDS: Heparin 5000 units/ml inj SUBQ SCH ×2 (10:12→20:43)
--- NOTE | 2018-11-15 10:36 | Nephrology Progress Note ---
Assessment/Plan Problem List: (1) Abscess of right hip (2) Renal failure (ARF), acute on chronic (3) Urinary retention (4) Diabetes mellitus Assessment Renal failure: - Acute , due to meds- Obstruction.... - Chronic: Due to underlying ?HTN / DM ... Urinary Retention in ANJEL HyperGlycemia / DM / Proteinuria Anemia Right hip abcess UTI Plan monitor renal parameters bailey cath monitor I&O Hydrate Keep BP and BS in check Avoid Nephrotoxics Antibiotics and surgical fu Urine studies Vanco level Subjective ROS Limited/Unobtainable: No Constitutional: Reports: malaise, weakness Objective Objective Last 24 Hour Vital Signs Date Time Temp Pulse Resp B/P (MAP) Pulse Ox O2 Delivery O2 Flow Rate FiO2 11/15/18 08:00 97.3 65 17 130/66 (87) 95 11/15/18 05:35 160/80 11/15/18 04:00 96.0 74 20 160/80 (106) 97 11/15/18 00:00 96.4 83 19 150/86 (107) 95 11/14/18 22:46 160/68 11/14/18 21:00 Room Air 11/14/18 20:58 74 120/68 11/14/18 20:00 97.1 74 20 99/71 (80) 99 11/14/18 16:00 96.1 60 16 138/64 (88) 97 11/14/18 14:20 146/79 11/14/18 12:00 96.3 69 20 146/79 (101) 98 Intake and Output 11/14/18 11/15/18 18:59 06:59 Intake Total 1730 ml Output Total 600 ml 550 ml Balance 1130 ml -550 ml Intake Oral 100 ml IV Total 1630 ml Output Urine Total 600 ml 550 ml # Voids 1 Laboratory Tests 11/14/18 12:16: White Blood Count 3.8L, Red Blood Count 2.81L, Hemoglobin 8.1L, Hematocrit 25.7L , Mean Corpuscular Volume 91, Mean Corpuscular Hemoglobin 29.0, Mean Corpuscular Hemoglobin Concent 31.7L, Red Cell Distribution Width 14.1, Platelet Count 479H, Mean Platelet Volume 4.5L, Neutrophils (%) (Auto) 46.5, Lymphocytes (%) (Auto) 39.4, Monocytes (%) (Auto) 9.8, Eosinophils (%) (Auto) 2.7, Basophils (%) (Auto) 1.7 11/15/18 05:40: Urine Eosinophils None seen 11/15/18 06:15: White Blood Count 3.9L, Red Blood Count 2.80L, Hemoglobin 8.3L, Hematocrit 25.5L , Mean Corpuscular Volume 91, Mean Corpuscular Hemoglobin 29.7, Mean Corpuscular Hemoglobin Concent 32.7, Red Cell Distribution Width 14.2, Platelet Count 456H, Mean Platelet Volume 4.4L, Neutrophils (%) (Auto) 34.6L, Lymphocytes (%) (Auto) 51.9H, Monocytes (%) (Auto) 8.9, Eosinophils (%) (Auto) 2.5, Basophils (%) (Auto) 2.0, Sodium Level 146H, Potassium Level 4.3, Chloride Level 115H, Carbon Dioxide Level 21, Anion Gap 10, Blood Urea Nitrogen 50H, Creatinine 5.2H, Estimat Glomerular Filtration Rate , Glucose Level 193H, Uric Acid 7.8H, Calcium Level 9.3, Phosphorus Level 5.9H, Magnesium Level 2.1, Total Bilirubin 0.2, Aspartate Amino Transf (AST/SGOT) 19, Alanine Aminotransferase ( ALT/SGPT) 24, Alkaline Phosphatase 68, Total Protein 6.4, Albumin 2.2L, Globulin 4.2, Albumin/Globulin Ratio 0.5L Height (Feet): 5 Height (Inches): 2.00 Weight (Pounds): 90 General Appearance: no apparent distress Cardiovascular: normal rate Respiratory/Chest: decreased breath sounds Abdomen: soft Objective no change William Blackwood MD Nov 15, 2018 10:36
[2018-11-15 12:00] VITALS: BP 136/70
[2018-11-15 16:00] VITALS: BP 133/68
[2018-11-15] MEDS ORDERED: Vancomycin 750mg/NS 275ml IVPB SCH ×2 (20:00)
[2018-11-15 21:50] VITALS: BP 175/80
[2018-11-16] VITALS (7 sets, daily range): BP systolic 120–191; BP diastolic 55–100
[2018-11-16] MEDS: Epoetin Alfa-EPBX (NON ESRD) 3000 units/ml vial SUBQ SCH (00:22)
[2018-11-16] MEDS: Piperacillin/Tazobactam 3.375 GM in NS 110 ML IVPB SCH ×2 (00:22→13:09)
[2018-11-16] MEDS: HydrALAZINE 50mg tab ORAL SCH ×3 (06:00→22:00)
[2018-11-16 06:17] LABS: HEMATOCRIT 24.1 % (37.0-47.0); HEMOGLOBIN 7.7 G/DL (12.0-16.0); MEAN CORPUSCULAR VOLUME 91 FL (80-99); PLATELET COUNT 448 K/UL (150-450); RED BLOOD COUNT 2.63 M/UL (4.20-5.40); RED CELL DISTRIBUTION WIDTH 14.7 % (11.6-14.8)
[2018-11-16] MEDS: D5NS 1,000 ML IV SCH (06:50)
[2018-11-16 07:00] LABS: ALANINE AMINOTRANSFERASE 22 U/L (12-78); ALBUMIN/GLOBULIN RATIO 0.4 (1.0-2.7); ALKALINE PHOSPHATASE 59 U/L (46-116); ANION GAP 14 mmol/L (5-15); ASPARTATE AMINO TRANSFERASE 17 U/L (15-37); BILIRUBIN,TOTAL 0.3 MG/DL (0.2-1.0); BLOOD UREA NITROGEN 45 mg/dL (7-18); CALCIUM 9.3 MG/DL (8.5-10.1); CARBON DIOXIDE 17 MMOL/L (21-32); CHLORIDE 119 MMOL/L (98-107); CREATININE 5.4 MG/DL (0.55-1.30); PHOSPHORUS 6.2 MG/DL (2.5-4.9); POTASSIUM 4.2 MMOL/L (3.5-5.1); SODIUM 150 MMOL/L (136-145)
--- NOTE | 2018-11-16 08:25 | General Progress Note ---
Assessment/Plan Problem List: (1) Anemia due to acute blood loss ICD Codes: D62 - Acute posthemorrhagic anemia SNOMED: 320780159 (2) Dementia ICD Codes: F03.90 - Unspecified dementia without behavioral disturbance SNOMED: 92095039 (3) Renal insufficiency ICD Codes: N28.9 - Disorder of kidney and ureter, unspecified SNOMED: 561747771, 615465273 (4) Abscess of right hip ICD Codes: L02.415 - Cutaneous abscess of right lower limb SNOMED: 726832 Status: stable, progressing Assessment/Plan: cont current rx monitor h/h and labs may need transfusion epo/iron replacement abx per id follow up cultures encourage pos cont bailey for urinary retention ivf adjusted for high Na Subjective ROS Limited/Unobtainable: Yes Constitutional: Reports: malaise, weakness HEENT: Reports: no symptoms Cardiovascular: Reports: no symptoms Respiratory: Reports: no symptoms Gastrointestinal/Abdominal: Reports: no symptoms Genitourinary: Reports: no symptoms Neurologic/Psychiatric: Reports: pre-existing deficit Endocrine: Reports: no symptoms Hematologic/Lymphatic: Reports: anemia Allergies: Coded Allergies: No Known Allergies (Unverified , 11/12/18) All Systems: reviewed and negative except above Subjective no events. stable. hgb low again. no fever or chills. no sob. confused at baseline. renal fxn worse. Objective Last 24 Hour Vital Signs Date Time Temp Pulse Resp B/P (MAP) Pulse Ox O2 Delivery O2 Flow Rate FiO2 11/16/18 06:00 132/55 11/16/18 05:27 132/55 (80) 11/16/18 04:00 97.1 80 20 174/80 (111) 99 11/16/18 00:00 97.0 20 20 165/87 (113) 99 11/15/18 21:50 97.0 82 18 175/80 (111) 97 11/15/18 21:05 182/149 11/15/18 21:00 Room Air 11/15/18 20:41 82 182/149 11/15/18 16:00 98.0 70 18 133/68 (89) 97 11/15/18 14:40 130/66 11/15/18 12:00 97.7 68 18 136/70 (92) 96 11/15/18 09:00 Room Air Intake and Output 11/15/18 11/16/18 19:00 07:00 Intake Total 680 ml 55.0 ml Output Total 600 ml 600 ml Balance 80 ml -545.0 ml Intake Oral 680 ml IV Total 55.0 ml Output Urine Total 600 ml 600 ml # Voids 1 Laboratory Tests 11/15/18 17:50: Random Vancomycin Level 13.1 11/16/18 05:30: Random Vancomycin Level 24.3, White Blood Count 4.0L, Red Blood Count 2.63L, Hemoglobin 7.7L, Hematocrit 24.1L, Mean Corpuscular Volume 91, Mean Corpuscular Hemoglobin 29.4, Mean Corpuscular Hemoglobin Concent 32.2, Red Cell Distribution Width 14.7, Platelet Count 448, Mean Platelet Volume 4.3L, Neutrophils (%) (Auto) , Lymphocytes (%) (Auto) , Monocytes (%) (Auto) , Eosinophils (%) (Auto) , Basophils (%) (Auto) , Neutrophils % (Manual) [Pending] , Lymphocytes % (Manual) [Pending], Platelet Estimate [Pending], Platelet Morphology [Pending], Urine Eosinophils None seen, Sodium Level 150H, Potassium Level 4.2, Chloride Level 119H, Carbon Dioxide Level 17L, Anion Gap 14, Blood Urea Nitrogen 45H, Creatinine 5.4H, Estimat Glomerular Filtration Rate , Glucose Level 179H, Calcium Level 9.3, Phosphorus Level 6.2H, Magnesium Level 2.3, Total Bilirubin 0.3, Aspartate Amino Transf (AST/SGOT) 17, Alanine Aminotransferase (ALT/SGPT) 22, Alkaline Phosphatase 59, Total Protein 6.5, Albumin 2.0L, Globulin 4.5, Albumin/Globulin Ratio 0.4L Height (Feet): 5 Height (Inches): 2.00 Weight (Pounds): 90 Objective General Appearance: WD/WN, alert, confused Neck: supple Cardiovascular: normal rate, regular rhythm Respiratory/Chest: chest wall non-tender, lungs clear, normal breath sounds Abdomen: normal bowel sounds, non tender, soft, no organomegaly Edema: no edema noted Arm (L), no edema noted Arm (R), no edema noted Leg (L), no edema noted Leg (R), no edema noted Pedal (L), no edema noted Pedal (R), no edema noted Generalized Neurologic: alert, disoriented Nate Beltran MD Nov 16, 2018 08:25
[2018-11-16] MEDS: Docusate 100mg cap ORAL SCH ×3 (09:00→17:49)
[2018-11-16] MEDS: Carvedilol 6.25mg Tab ORAL SCH ×2 (09:00→21:00)
[2018-11-16] MEDS: Heparin 5000 units/ml inj SUBQ SCH ×2 (09:37→21:40)
--- NOTE | 2018-11-16 09:46 | Nephrology Progress Note ---
Assessment/Plan Problem List: (1) Abscess of right hip (2) Renal failure (ARF), acute on chronic (3) Urinary retention (4) Diabetes mellitus (5) Failure to thrive Assessment Renal failure: - Acute , due to meds- Obstruction.... - Chronic: Due to underlying ?HTN / DM ... Urinary Retention in ANJEL HyperGlycemia / DM / Proteinuria Anemia Right hip abcess UTI . Plan monitor renal parameters bailey cath monitor I&O Hydrate Keep BP and BS in check Avoid Nephrotoxics Antibiotics and surgical fu Urine studies Vanco level 24 today 11/16 ? NGT ? PEG ?? Subjective ROS Limited/Unobtainable: Yes Objective Objective Last 24 Hour Vital Signs Date Time Temp Pulse Resp B/P (MAP) Pulse Ox O2 Delivery O2 Flow Rate FiO2 11/16/18 06:00 132/55 11/16/18 05:27 132/55 (80) 11/16/18 04:00 97.1 80 20 174/80 (111) 99 11/16/18 00:00 97.0 20 20 165/87 (113) 99 11/15/18 21:50 97.0 82 18 175/80 (111) 97 11/15/18 21:05 182/149 11/15/18 21:00 Room Air 11/15/18 20:41 82 182/149 11/15/18 16:00 98.0 70 18 133/68 (89) 97 11/15/18 14:40 130/66 11/15/18 12:00 97.7 68 18 136/70 (92) 96 Intake and Output 11/15/18 11/16/18 19:00 07:00 Intake Total 680 ml 55.0 ml Output Total 600 ml 600 ml Balance 80 ml -545.0 ml Intake Oral 680 ml IV Total 55.0 ml Output Urine Total 600 ml 600 ml # Voids 1 Laboratory Tests 11/15/18 17:50: Random Vancomycin Level 13.1 11/16/18 05:30: Random Vancomycin Level 24.3, White Blood Count 4.0L, Red Blood Count 2.63L, Hemoglobin 7.7L, Hematocrit 24.1L, Mean Corpuscular Volume 91, Mean Corpuscular Hemoglobin 29.4, Mean Corpuscular Hemoglobin Concent 32.2, Red Cell Distribution Width 14.7, Platelet Count 448, Mean Platelet Volume 4.3L, Neutrophils (%) (Auto) , Lymphocytes (%) (Auto) , Monocytes (%) (Auto) , Eosinophils (%) (Auto) , Basophils (%) (Auto) , Differential Total Cells Counted 100, Neutrophils % (Manual) 36L, Lymphocytes % (Manual) 53H, Monocytes % (Manual) 4, Eosinophils % (Manual) 5H, Basophils % (Manual) 2, Band Neutrophils 0, Platelet Estimate Adequate, Platelet Morphology Normal, Hypochromasia 3+, Anisocytosis 1+, Spherocytes 1+, Urine Eosinophils None seen, Sodium Level 150H, Potassium Level 4.2, Chloride Level 119H, Carbon Dioxide Level 17L, Anion Gap 14, Blood Urea Nitrogen 45H, Creatinine 5.4H, Estimat Glomerular Filtration Rate , Glucose Level 179H, Calcium Level 9.3, Phosphorus Level 6.2H, Magnesium Level 2.3, Total Bilirubin 0.3, Aspartate Amino Transf ( AST/SGOT) 17, Alanine Aminotransferase (ALT/SGPT) 22, Alkaline Phosphatase 59, Total Protein 6.5, Albumin 2.0L, Globulin 4.5, Albumin/Globulin Ratio 0.4L Height (Feet): 5 Height (Inches): 2.00 Weight (Pounds): 90 General Appearance: no apparent distress, lethargic Cardiovascular: normal rate Respiratory/Chest: decreased breath sounds Abdomen: soft Objective no change William Blackwood MD Nov 16, 2018 09:46
--- NOTE | 2018-11-16 11:12 | Surgery Progress Note ---
Surgery Progress Note Subjective Procedure Performed incision and drainage of right hip abscess with excisional debridement of non viable necrotic tissue and debris. Symptoms: improved Additional Comments dressings removed and wound examined. cellulitis much improved. wound improved. Objective Last 24 Hour Vital Signs Date Time Temp Pulse Resp B/P (MAP) Pulse Ox O2 Delivery O2 Flow Rate FiO2 11/16/18 09:00 Room Air 11/16/18 09:00 60 120/62 11/16/18 08:00 98.8 60 18 120/62 (81) 96 11/16/18 06:00 132/55 11/16/18 05:27 132/55 (80) 11/16/18 04:00 97.1 80 20 174/80 (111) 99 11/16/18 00:00 97.0 20 20 165/87 (113) 99 11/15/18 21:50 97.0 82 18 175/80 (111) 97 11/15/18 21:05 182/149 11/15/18 21:00 Room Air 11/15/18 20:41 82 182/149 11/15/18 16:00 98.0 70 18 133/68 (89) 97 11/15/18 14:40 130/66 11/15/18 12:00 97.7 68 18 136/70 (92) 96 I&O Intake and Output 11/15/18 11/16/18 19:00 07:00 Intake Total 680 ml 55.0 ml Output Total 600 ml 600 ml Balance 80 ml -545.0 ml Intake Oral 680 ml IV Total 55.0 ml Output Urine Total 600 ml 600 ml # Voids 1 Dressing: saturated Wound: clean Cardiovascular: RSR Respiratory: clear Abdomen: soft, non-tender, present bowel sounds, non-distended Extremities: edema, no tenderness, no cyanosis Laboratory Tests Test 11/15/18 17:50 11/16/18 05:30 Random Vancomycin Level 13.1 ug/mL 24.3 ug/mL White Blood Count 4.0 K/UL (4.8-10.8) L Red Blood Count 2.63 M/UL (4.20-5.40) L Hemoglobin 7.7 G/DL (12.0-16.0) L Hematocrit 24.1 % (37.0-47.0) L Mean Corpuscular Volume 91 FL (80-99) Mean Corpuscular Hemoglobin 29.4 PG (27.0-31.0) Mean Corpuscular Hemoglobin Concent 32.2 G/DL (32.0-36.0) Red Cell Distribution Width 14.7 % (11.6-14.8) Platelet Count 448 K/UL (150-450) Mean Platelet Volume 4.3 FL (6.5-10.1) L Neutrophils (%) (Auto) % (45.0-75.0) Lymphocytes (%) (Auto) % (20.0-45.0) Monocytes (%) (Auto) % (1.0-10.0) Eosinophils (%) (Auto) % (0.0-3.0) Basophils (%) (Auto) % (0.0-2.0) Differential Total Cells Counted 100 Neutrophils % (Manual) 36 % (45-75) L Lymphocytes % (Manual) 53 % (20-45) H Monocytes % (Manual) 4 % (1-10) Eosinophils % (Manual) 5 % (0-3) H Basophils % (Manual) 2 % (0-2) Band Neutrophils 0 % (0-8) Platelet Estimate Adequate Platelet Morphology Normal Hypochromasia 3+ Anisocytosis 1+ Spherocytes 1+ Urine Eosinophils None seen (NONE SEEN) Sodium Level 150 MMOL/L (136-145) H Potassium Level 4.2 MMOL/L (3.5-5.1) Chloride Level 119 MMOL/L (98-107) H Carbon Dioxide Level 17 MMOL/L (21-32) L Anion Gap 14 mmol/L (5-15) Blood Urea Nitrogen 45 mg/dL (7-18) H Creatinine 5.4 MG/DL (0.55-1.30) H Estimat Glomerular Filtration Rate mL/min (>60) Glucose Level 179 MG/DL (74-106) H Calcium Level 9.3 MG/DL (8.5-10.1) Phosphorus Level 6.2 MG/DL (2.5-4.9) H Magnesium Level 2.3 MG/DL (1.8-2.4) Total Bilirubin 0.3 MG/DL (0.2-1.0) Aspartate Amino Transf (AST/SGOT) 17 U/L (15-37) Alanine Aminotransferase (ALT/SGPT) 22 U/L (12-78) Alkaline Phosphatase 59 U/L (46-116) Total Protein 6.5 G/DL (6.4-8.2) Albumin 2.0 G/DL (3.4-5.0) L Globulin 4.5 g/dL Albumin/Globulin Ratio 0.4 (1.0-2.7) L Assessment Post-op Diagnosis large right hip abscess with necrotic non viable tissue. Plan Problems: (1) Abscess of right hip Assessment & Plan: 78F with abscess of right hip, large, deep. on exam mainly looks like cellulitis but once abscess drained significant fluid it was apparent that it was much deeper. proper care necessary and unfortunately unable to get in contact with family. called daughter without reply. abscess needs drainage, washout and proper care. medically necessary. -see procedure note; incision made and debris and sloth washed out with excision of necrotic tissue. wound irrigated with copious NS. wound packed -okay for diet -Nursing to do packing and dressing TID -IV abx -thank you Camilo James Nov 16, 2018 11:12
--- NOTE | 2018-11-16 17:00 | Consultation ---
DATE OF CONSULTATION: 11/16/2018 INFECTIOUS DISEASE CONSULTATION This consult is for coverage of Dr. Solares. CONSULTING PHYSICIAN: Warren Parks M.D. PRIMARY ATTENDING PHYSICIAN: Nate Beltran M.D. REASON FOR CONSULT: Right hip gluteal abscess. HISTORY OF PRESENT ILLNESS: This is a 78-year-old female admitted on 11/12/2018 from a [place] [facility] facility because of infection, cellulitis in the right hip area that did not respond to p.o. antibiotic. It was discovered that the patient has an abscess and she had an I and D on 11/12/2018. Getting antibiotics. The patient is not a source of history. PAST MEDICAL HISTORY: Significant for dementia, hypertension, coronary artery disease, osteoarthritis, osteoporosis, and anemia. ALLERGIES: No known drug allergies. MEDICATIONS: Epogen, Zosyn, vancomycin, Renvela, amlodipine, Protonix, hydralazine, heparin, carvedilol, lorazepam, Remeron, Seroquel, Tylenol, and Zofran. SOCIAL HISTORY: jail resident. Single. She has a daughter. No other history obtainable. PHYSICAL EXAMINATION: VITAL SIGNS: Temperature 98.8, pulse 60, and blood pressure 120/62. GENERAL APPEARANCE: No acute distress. Seems to be thin and cachectic. HEAD AND NECK: She has no teeth. HEART: Normal rate. LUNGS: Some rhonchi bilaterally. ABDOMEN: Soft and nontender. EXTREMITIES: No edema. NEUROLOGIC: Muscle atrophy. SKIN: Wound in the right hip buttock area, has discharge from the wound. LABORATORY DATA: WBC 4, hemoglobin 7.7, hematocrit 24.1, and platelets 448. Sodium 150, potassium 4.2, chloride 119, bicarb 17, BUN 45, creatinine 5.4. Glucose 179. IMPRESSION: 1. Abscess, right hip status post incision and drainage. 2. Acute on chronic renal failure. 3. Urinary retention. 4. Failure to thrive and cachexia. 5. Dementia with behavioral problem. 6. Hypertension. RECOMMENDATIONS: We will follow up the cultures. Continue vancomycin and Zosyn. We will order wound culture. At the end of my exam, I thank Dr. Beltran for involving me in the care of this patient. Warren Parks M.D. DR: SUZETTE JOB#: [id number] CC: ISAI
[2018-11-17] VITALS (7 sets, daily range): BP systolic 114–178; BP diastolic 56–93
--- NOTE | 2018-11-17 | Progress Note ---
DATE: 11/15/2018 CARDIOLOGY PROGRESS NOTE Late entry. SUBJECTIVE: The patient has a Marroquin catheter in place due to urinary retention. She remains confused. No shortness of breath. OBJECTIVE: VITAL SIGNS: Blood pressure labile 99/71 to 160/80, heart rate 60 to 83, respiratory rate 20, afebrile. LUNGS: Clear. CARDIAC: Regular. Normal S1, S2 with a 1/6 systolic murmur at base. ABDOMEN: Soft. EXTREMITIES: Trace edema. Wound site on the sacrum has dressing in place. LABORATORY DATA: White count 3.9, hemoglobin 8.3. Sodium 146, potassium 4.3, chloride 115, bicarbonate 21, BUN 50, creatinine 5.2. Albumin 2.2. IMPRESSION: 1. Dehydration. 2. Hypernatremia. 3. Severe protein-calorie malnutrition. 4. Cellulitis. 5. Sepsis. 6. Labile hypertension. PLAN: 1. Advance antihypertensives p.r.n. dosing available. 2. Wound care. 3. Antimicrobials. 4. Iron replacement. 5. Hypotonic IV fluids. Abel Stubbs M.D. DR: AFITH JOB#: [id number] CC:
[2018-11-17] MEDS: Piperacillin/Tazobactam 3.375 GM in NS 110 ML IVPB SCH ×3 (00:33→23:13)
--- NOTE | 2018-11-17 03:30 | Progress Note ---
DATE: 11/16/2018 CARDIOLOGY PROGRESS NOTE SUBJECTIVE: Oral intake poor. Blood pressure labile. Medication compliance poor as well. OBJECTIVE: Blood pressure 132/55 to 174/80, pulse 80, respirations 20, afebrile. LUNGS: Clear. CARDIAC: Regular. Normal S1 and S2. ABDOMEN: Soft. There is no edema. Wound site has dressing in place. Marroquin catheter in place. LABORATORY DATA: Cultures negative. White count is 4 and hemoglobin 7.7. Potassium 4.2, sodium 150, chloride 119, bicarb 17, BUN 45, creatinine 5.4. Albumin 2. IMPRESSION: Worsening renal failure, dehydration, hypernatremia, hyperchloremia, metabolic acidosis, sepsis, decubitus, severe protein-calorie malnutrition, anemia, acute on chronic diastolic congestive heart failure, hypertensive heart disease with labile blood pressure. PLAN: 1. Topical antihypertensives with p.r.n. dosing by oral or IV route. 2. Skin care, antimicrobials, hypotonic IV fluid hydration. 3. Monitor volume status and cardiorenal parameters. 4. Encourage oral intake. 5. May need feeding tube. Abel Stubbs M.D. DR: NGOZI JOB#: [id number] CC:
[2018-11-17] MEDS: HydrALAZINE 50mg tab ORAL SCH ×3 (06:00→22:00)
--- NOTE | 2018-11-17 07:52 | General Progress Note ---
Assessment/Plan Problem List: (1) Anemia due to acute blood loss ICD Codes: D62 - Acute posthemorrhagic anemia SNOMED: 315828497 (2) Dementia ICD Codes: F03.90 - Unspecified dementia without behavioral disturbance SNOMED: 33783470 (3) Renal insufficiency ICD Codes: N28.9 - Disorder of kidney and ureter, unspecified SNOMED: 419097006, 903824921 (4) Abscess of right hip ICD Codes: L02.415 - Cutaneous abscess of right lower limb SNOMED: 042125 Status: stable, progressing Assessment/Plan: cont current rx monitor h/h and labs may need transfusion epo/iron replacement abx per id follow up cultures encourage pos cont bailey for urinary retention d/w dtr- thinks pt is not eating due to pain. shes also concerned about her ability to cooperate with a feeding tube and HD due to her underlying schizophrenia. they will consider gt and HD Subjective ROS Limited/Unobtainable: Yes Constitutional: Reports: malaise, weakness HEENT: Reports: no symptoms Cardiovascular: Reports: no symptoms Respiratory: Reports: no symptoms Gastrointestinal/Abdominal: Reports: no symptoms Genitourinary: Reports: no symptoms Neurologic/Psychiatric: Reports: emotional problems, pre-existing deficit Endocrine: Reports: no symptoms Hematologic/Lymphatic: Reports: no symptoms Allergies: Coded Allergies: No Known Allergies (Unverified , 11/12/18) All Systems: reviewed and negative except above Subjective no change. minimal po intake. wound stable. Objective Last 24 Hour Vital Signs Date Time Temp Pulse Resp B/P (MAP) Pulse Ox O2 Delivery O2 Flow Rate FiO2 11/17/18 06:00 114/85 11/17/18 04:00 97.7 71 16 114/85 (95) 99 11/17/18 00:00 97.5 75 16 168/74 (105) 100 11/16/18 22:00 128/62 11/16/18 21:00 67 128/62 11/16/18 21:00 Room Air 11/16/18 20:00 96.9 70 16 129/75 (93) 100 11/16/18 16:00 98.0 76 18 188/100 (129) 98 11/16/18 14:41 199/96 11/16/18 12:00 98.6 84 22 191/97 (128) 96 11/16/18 09:00 Room Air 11/16/18 09:00 60 120/62 11/16/18 08:00 98.8 60 18 120/62 (81) 96 Intake and Output 11/16/18 11/17/18 19:00 07:00 Intake Total 510.0 ml 560.0 ml Balance 510.0 ml 560.0 ml IV Total 510.0 ml 560.0 ml # Voids 1 Height (Feet): 5 Height (Inches): 2.00 Weight (Pounds): 86 Objective General Appearance: WD/WN, alert, confused Neck: supple Cardiovascular: normal rate, regular rhythm Respiratory/Chest: chest wall non-tender, lungs clear, normal breath sounds Abdomen: normal bowel sounds, non tender, soft, no organomegaly Edema: no edema noted Arm (L), no edema noted Arm (R), no edema noted Leg (L), no edema noted Leg (R), no edema noted Pedal (L), no edema noted Pedal (R), no edema noted Generalized Neurologic: alert, disoriented Nate Beltran MD Nov 17, 2018 07:52
[2018-11-17 08:22] LABS: HEMATOCRIT 25.3 % (37.0-47.0); HEMOGLOBIN 8.2 G/DL (12.0-16.0); MEAN CORPUSCULAR VOLUME 91 FL (80-99); PLATELET COUNT 408 K/UL (150-450); RED BLOOD COUNT 2.77 M/UL (4.20-5.40); RED CELL DISTRIBUTION WIDTH 15.1 % (11.6-14.8); WHITE BLOOD COUNT 5.4 K/UL (4.8-10.8)
[2018-11-17] MEDS: Heparin 5000 units/ml inj SUBQ SCH ×2 (08:46→23:12)
[2018-11-17] MEDS: Docusate 100mg cap ORAL SCH ×3 (08:48→17:12)
[2018-11-17] MEDS: Carvedilol 6.25mg Tab ORAL SCH ×2 (08:48→21:00)
[2018-11-17 09:23] LABS: ALANINE AMINOTRANSFERASE 19 U/L (12-78); ALBUMIN/GLOBULIN RATIO 0.5 (1.0-2.7); ALKALINE PHOSPHATASE 62 U/L (46-116); ANION GAP 16 mmol/L (5-15); ASPARTATE AMINO TRANSFERASE 19 U/L (15-37); BILIRUBIN,TOTAL 0.3 MG/DL (0.2-1.0); BLOOD UREA NITROGEN 42 mg/dL (7-18); CALCIUM 9.2 MG/DL (8.5-10.1); CARBON DIOXIDE 16 MMOL/L (21-32); CHLORIDE 117 MMOL/L (98-107); CREATININE 5.8 MG/DL (0.55-1.30); POTASSIUM 3.8 MMOL/L (3.5-5.1); SODIUM 149 MMOL/L (136-145)
[2018-11-17 11:14] LABS: CREATININE 5.8 MG/DL (0.55-1.30)
--- NOTE | 2018-11-17 12:55 | Infectious Diseases Prog Note ---
Assessment/Plan Assessment/Plan IMPRESSION: 1. Abscess, right hip status post incision and drainage. 2. Acute on chronic renal failure. 3. Urinary retention. 4. Failure to thrive and cachexia. 5. Dementia with behavioral problem. 6. Hypertension. RECOMMENDATIONS: We will follow up the cultures. Continue vancomycin and Zosyn Subjective ROS Limited/Unobtainable: Yes Constitutional: Denies: fever Allergies: Coded Allergies: No Known Allergies (Unverified , 11/12/18) Objective Vital Signs Last 24 Hour Vital Signs Date Time Temp Pulse Resp B/P (MAP) Pulse Ox O2 Delivery O2 Flow Rate FiO2 11/17/18 09:00 Room Air 11/17/18 08:49 75 146/93 11/17/18 08:48 75 146/93 11/17/18 08:00 97.7 75 18 146/93 (110) 94 11/17/18 06:00 114/85 11/17/18 04:00 97.7 71 16 114/85 (95) 99 11/17/18 00:00 97.5 75 16 168/74 (105) 100 11/16/18 22:00 128/62 11/16/18 21:00 67 128/62 11/16/18 21:00 Room Air 11/16/18 20:00 96.9 70 16 129/75 (93) 100 11/16/18 16:00 98.0 76 18 188/100 (129) 98 11/16/18 14:41 199/96 Height (Feet): 5 Height (Inches): 2.00 Weight (Pounds): 86 General Appearance: cachetic HEENT: mucous membranes moist Respiratory/Chest: lungs clear Cardiovascular: normal rate Abdomen: soft, non tender Extremities: no edema Skin: other - Right thigh dressing Neurologic/Psychiatric: other - sleeping Laboratory Tests Test 11/17/18 06:46 11/17/18 10:00 White Blood Count 5.4 K/UL (4.8-10.8) Red Blood Count 2.77 M/UL (4.20-5.40) L Hemoglobin 8.2 G/DL (12.0-16.0) L Hematocrit 25.3 % (37.0-47.0) L Mean Corpuscular Volume 91 FL (80-99) Mean Corpuscular Hemoglobin 29.6 PG (27.0-31.0) Mean Corpuscular Hemoglobin Concent 32.4 G/DL (32.0-36.0) Red Cell Distribution Width 15.1 % (11.6-14.8) H Platelet Count 408 K/UL (150-450) Mean Platelet Volume 3.9 FL (6.5-10.1) L Neutrophils (%) (Auto) % (45.0-75.0) Lymphocytes (%) (Auto) % (20.0-45.0) Monocytes (%) (Auto) % (1.0-10.0) Eosinophils (%) (Auto) % (0.0-3.0) Basophils (%) (Auto) % (0.0-2.0) Differential Total Cells Counted 100 Neutrophils % (Manual) 32 % (45-75) L Lymphocytes % (Manual) 51 % (20-45) H Monocytes % (Manual) 10 % (1-10) Eosinophils % (Manual) 6 % (0-3) H Basophils % (Manual) 0 % (0-2) Band Neutrophils 1 % (0-8) Platelet Estimate Adequate Platelet Morphology Normal Anisocytosis 1+ Urine Collection Time 24 HRS Urine Total Volume 1000 ML Urine Creatinine 31 mg/dL Urine Creatinine 24 Hour 310 mg/24hr (740-1570) L Patient Height Inches (Creat Clear) 62 INCHES Patient Weight Pounds (Creat Clear) 85.98 LBS Creatinine Clearance 5 mL/min (71-151) L Sodium Level 149 MMOL/L (136-145) H Potassium Level 3.8 MMOL/L (3.5-5.1) Chloride Level 117 MMOL/L (98-107) H Carbon Dioxide Level 16 MMOL/L (21-32) L Anion Gap 16 mmol/L (5-15) H Blood Urea Nitrogen 42 mg/dL (7-18) H Creatinine 5.8 MG/DL (0.55-1.30) H Estimat Glomerular Filtration Rate mL/min (>60) Glucose Level 144 MG/DL (74-106) H Calcium Level 9.2 MG/DL (8.5-10.1) Total Bilirubin 0.3 MG/DL (0.2-1.0) Aspartate Amino Transf (AST/SGOT) 19 U/L (15-37) Alanine Aminotransferase (ALT/SGPT) 19 U/L (12-78) Alkaline Phosphatase 62 U/L (46-116) Total Protein 6.4 G/DL (6.4-8.2) Albumin 2.0 G/DL (3.4-5.0) L Globulin 4.4 g/dL Albumin/Globulin Ratio 0.5 (1.0-2.7) L Current Medications Medications (Trade) Dose Ordered Sig/Javier Route PRN Reason Start Time Stop Time Status Last Admin Dose Admin Acetaminophen (Tylenol) 650 mg Q4H PRN ORAL Mild Pain/Temp > 100.5 11/12/18 20:00 12/12/18 19:59 11/14/18 18:39 Amlodipine Besylate (Norvasc) 10 mg DAILY ORAL 11/14/18 09:00 12/13/18 08:59 11/14/18 09:42 Carvedilol (Coreg) 12.5 mg EVERY 12 HOURS ORAL 11/17/18 09:00 12/17/18 08:59 Clonidine HCl (Catapres TTS-2) 1 patch QWEEK TDERMAL 11/16/18 15:00 12/16/18 14:59 11/16/18 14:41 Dextrose 1,000 ml @ 75 mls/hr [id number] IV 11/16/18 08:30 12/16/18 08:29 11/17/18 11:45 Docusate Sodium (Colace) 100 mg THREE TIMES A DAY ORAL 11/14/18 18:00 12/14/18 17:59 11/14/18 17:31 Epoetin Thomas (Epoetin Thomas-EPBX(NON ESRD)) 3,000 unit [id number] SUBQ 11/15/18 21:00 12/15/18 20:59 11/16/18 00:22 Heparin Sodium (Porcine) (Heparin 5000 units/ml) 5,000 units EVERY 12 HOURS SUBQ 11/13/18 21:00 12/13/18 20:59 11/17/18 08:46 Hydralazine HCl (Apresoline) 50 mg EVERY 8 HOURS ORAL 11/13/18 22:00 12/12/18 21:59 11/15/18 21:05 Lorazepam (Ativan 2mg/ml 1ml) 1 mg Q4H PRN IV Restlessness 11/13/18 12:35 6/8/19 12:34 11/15/18 21:59 Mirtazapine (Remeron) 15 mg BEDTIME ORAL 11/12/18 21:00 12/12/18 20:59 11/15/18 20:41 Ondansetron HCl (Zofran) 0.5 mg Q8H PRN IVP Nausea & Vomiting 11/12/18 20:00 12/12/18 19:59 Pantoprazole (Protonix) 40 mg DAILY ORAL 11/14/18 09:00 12/14/18 08:59 11/14/18 09:42 Piperacillin Sod/ Tazobactam Sod 3.375 gm/Sodium Chloride 110 ml @ 27.5 mls/hr Q12H IVPB 11/15/18 00:00 11/22/18 00:00 11/17/18 12:27 Quetiapine Fumarate (SEROquel) 100 mg QHS ORAL 11/12/18 21:00 12/12/18 20:59 11/15/18 20:39 Sevelamer Carbonate (Renvela) 800 mg THREE TIMES A DAY ORAL 11/14/18 18:00 12/14/18 17:59 11/14/18 17:31 Vancomycin HCl (Vanco rx to dose) 1 ea DAILY PRN MISC Per rx protocol 11/14/18 21:45 12/14/18 21:44 Warren Parks MD Nov 17, 2018 12:55
--- NOTE | 2018-11-17 14:43 | Surgery Progress Note ---
Surgery Progress Note Subjective Procedure Performed incision and drainage of right hip abscess with excisional debridement of non viable necrotic tissue and debris. Additional Comments no acute events exam stable dressings being changed labs noted Objective Last 24 Hour Vital Signs Date Time Temp Pulse Resp B/P (MAP) Pulse Ox O2 Delivery O2 Flow Rate FiO2 11/17/18 13:47 172/94 11/17/18 09:00 Room Air 11/17/18 08:49 75 146/93 11/17/18 08:48 75 146/93 11/17/18 08:00 97.7 75 18 146/93 (110) 94 11/17/18 06:00 114/85 11/17/18 04:00 97.7 71 16 114/85 (95) 99 11/17/18 00:00 97.5 75 16 168/74 (105) 100 11/16/18 22:00 128/62 11/16/18 21:00 67 128/62 11/16/18 21:00 Room Air 11/16/18 20:00 96.9 70 16 129/75 (93) 100 11/16/18 16:00 98.0 76 18 188/100 (129) 98 I&O Intake and Output 11/16/18 11/17/18 19:00 07:00 Intake Total 510.0 ml 635.0 ml Balance 510.0 ml 635.0 ml IV Total 510.0 ml 635.0 ml # Voids 1 Dressing: saturated Wound: clean Cardiovascular: RSR Respiratory: clear Abdomen: soft, non-tender, non-distended Extremities: edema, no tenderness, no cyanosis Laboratory Tests Test 11/17/18 06:46 11/17/18 10:00 White Blood Count 5.4 K/UL (4.8-10.8) Red Blood Count 2.77 M/UL (4.20-5.40) L Hemoglobin 8.2 G/DL (12.0-16.0) L Hematocrit 25.3 % (37.0-47.0) L Mean Corpuscular Volume 91 FL (80-99) Mean Corpuscular Hemoglobin 29.6 PG (27.0-31.0) Mean Corpuscular Hemoglobin Concent 32.4 G/DL (32.0-36.0) Red Cell Distribution Width 15.1 % (11.6-14.8) H Platelet Count 408 K/UL (150-450) Mean Platelet Volume 3.9 FL (6.5-10.1) L Neutrophils (%) (Auto) % (45.0-75.0) Lymphocytes (%) (Auto) % (20.0-45.0) Monocytes (%) (Auto) % (1.0-10.0) Eosinophils (%) (Auto) % (0.0-3.0) Basophils (%) (Auto) % (0.0-2.0) Differential Total Cells Counted 100 Neutrophils % (Manual) 32 % (45-75) L Lymphocytes % (Manual) 51 % (20-45) H Monocytes % (Manual) 10 % (1-10) Eosinophils % (Manual) 6 % (0-3) H Basophils % (Manual) 0 % (0-2) Band Neutrophils 1 % (0-8) Platelet Estimate Adequate Platelet Morphology Normal Anisocytosis 1+ Urine Collection Time 24 HRS Urine Total Volume 1000 ML Urine Creatinine 31 mg/dL Urine Creatinine 24 Hour 310 mg/24hr (740-1570) L Patient Height Inches (Creat Clear) 62 INCHES Patient Weight Pounds (Creat Clear) 85.98 LBS Creatinine Clearance 5 mL/min (71-151) L Sodium Level 149 MMOL/L (136-145) H Potassium Level 3.8 MMOL/L (3.5-5.1) Chloride Level 117 MMOL/L (98-107) H Carbon Dioxide Level 16 MMOL/L (21-32) L Anion Gap 16 mmol/L (5-15) H Blood Urea Nitrogen 42 mg/dL (7-18) H Creatinine 5.8 MG/DL (0.55-1.30) H Estimat Glomerular Filtration Rate mL/min (>60) Glucose Level 144 MG/DL (74-106) H Calcium Level 9.2 MG/DL (8.5-10.1) Total Bilirubin 0.3 MG/DL (0.2-1.0) Aspartate Amino Transf (AST/SGOT) 19 U/L (15-37) Alanine Aminotransferase (ALT/SGPT) 19 U/L (12-78) Alkaline Phosphatase 62 U/L (46-116) Total Protein 6.4 G/DL (6.4-8.2) Albumin 2.0 G/DL (3.4-5.0) L Globulin 4.4 g/dL Albumin/Globulin Ratio 0.5 (1.0-2.7) L Assessment Post-op Diagnosis large right hip abscess with necrotic non viable tissue. Plan Problems: (1) Abscess of right hip Assessment & Plan: 78F with abscess of right hip, large, deep. on exam mainly looks like cellulitis but once abscess drained significant fluid it was apparent that it was much deeper. proper care necessary and unfortunately unable to get in contact with family. called daughter without reply. abscess needs drainage, washout and proper care. s/p drainage, debridement, washout improving since will likely need feeding tube since note tolerating enough diet needs nutrition to heal this wound -okay for diet -Nursing to do packing and dressing TID -IV abx -will follow with recs -thank you Camilo James Nov 17, 2018 14:43
--- NOTE | 2018-11-17 14:47 | Nephrology Progress Note ---
Assessment/Plan Problem List: (1) Abscess of right hip (2) Renal failure (ARF), acute on chronic (3) Urinary retention (4) Diabetes mellitus (5) Failure to thrive Assessment Renal failure: - Acute , due to meds- Obstruction.... - Chronic: Due to underlying ?HTN / DM ... Urinary Retention in ANEJL HyperGlycemia / DM / Proteinuria Anemia Right hip abcess UTI . Plan monitor renal parameters bailey cath monitor I&O Hydrate Keep BP and BS in check Avoid Nephrotoxics Antibiotics and surgical fu Urine studies Vanco level 24 on 11/16 ? NGT ? PEG ?? Dialysis ? CrCl 5 Subjective ROS Limited/Unobtainable: Yes Objective Objective Last 24 Hour Vital Signs Date Time Temp Pulse Resp B/P (MAP) Pulse Ox O2 Delivery O2 Flow Rate FiO2 11/17/18 13:47 172/94 11/17/18 12:00 97.5 69 18 167/89 (115) 98 11/17/18 09:00 Room Air 11/17/18 08:49 75 146/93 11/17/18 08:48 75 146/93 11/17/18 08:00 97.7 75 18 146/93 (110) 94 11/17/18 06:00 114/85 11/17/18 04:00 97.7 71 16 114/85 (95) 99 11/17/18 00:00 97.5 75 16 168/74 (105) 100 11/16/18 22:00 128/62 11/16/18 21:00 67 128/62 11/16/18 21:00 Room Air 11/16/18 20:00 96.9 70 16 129/75 (93) 100 11/16/18 16:00 98.0 76 18 188/100 (129) 98 Intake and Output 11/16/18 11/17/18 19:00 07:00 Intake Total 510.0 ml 635.0 ml Balance 510.0 ml 635.0 ml IV Total 510.0 ml 635.0 ml # Voids 1 Laboratory Tests 11/17/18 06:46: White Blood Count 5.4, Red Blood Count 2.77L, Hemoglobin 8.2L, Hematocrit 25.3L , Mean Corpuscular Volume 91, Mean Corpuscular Hemoglobin 29.6, Mean Corpuscular Hemoglobin Concent 32.4, Red Cell Distribution Width 15.1H, Platelet Count 408, Mean Platelet Volume 3.9L, Neutrophils (%) (Auto) , Lymphocytes (%) (Auto) , Monocytes (%) (Auto) , Eosinophils (%) (Auto) , Basophils (%) (Auto) , Differential Total Cells Counted 100, Neutrophils % ( Manual) 32L, Lymphocytes % (Manual) 51H, Monocytes % (Manual) 10, Eosinophils % (Manual) 6H, Basophils % (Manual) 0, Band Neutrophils 1, Platelet Estimate Adequate, Platelet Morphology Normal, Anisocytosis 1+ 11/17/18 10:00: Urine Collection Time 24, Urine Total Volume 1000, Urine Creatinine 31, Urine Creatinine 24 Hour 310L, Patient Height Inches (Creat Clear) 62, Patient Weight Pounds (Creat Clear) 85.98, Creatinine Clearance 5L, Sodium Level 149H, Potassium Level 3.8, Chloride Level 117H, Carbon Dioxide Level 16L, Anion Gap 16H, Blood Urea Nitrogen 42H, Creatinine 5.8H, Estimat Glomerular Filtration Rate , Glucose Level 144H, Calcium Level 9.2, Total Bilirubin 0.3, Aspartate Amino Transf (AST/SGOT) 19, Alanine Aminotransferase (ALT/SGPT) 19, Alkaline Phosphatase 62, Total Protein 6.4, Albumin 2.0L, Globulin 4.4, Albumin/Globulin Ratio 0.5L Height (Feet): 5 Height (Inches): 2.00 Weight (Pounds): 86 General Appearance: no apparent distress Objective no change William Blackwood MD Nov 17, 2018 14:47
[2018-11-17] MEDS ORDERED: Tubing IV Secondary IV ONE (16:00)
[2018-11-17] MEDS ORDERED: D5NS 1000ml IV ONE (16:00)
[2018-11-17] MEDS ORDERED: NS Irrig 1000ml ONE (16:00)
[2018-11-17] MEDS: LORazepam Inj 2mg/ml 1ml IV PRN (16:03)
--- NOTE | 2018-11-17 16:10 | Diagnostic Imaging Report ---
Indication: Right-sided weakness Technique: Contiguous 5 mm thick transaxial imaging of the head obtained in a Siemens Sensation [address] scanner. Soft tissue and bone windows generated. Automatic Exposure Control was utilized. Total Dose length Product (DLP): 1305.[address] Dose Index Volume (CTDIvol): 70.38 mGy Comparison: none Findings: There is encephalomalacia in the left frontal lobe characterized by low attenuation involving subcortical white matter and thinning of the the corresponding gyri and prominence of the corresponding sulci. Low attenuation of the left basal ganglia also noted. There is no hemorrhage identified. There is moderate prominence of the ventricles, basal cisterns, and cerebral sulci consistent with atrophy. Moderate, nonspecific, white matter hypoattenuation is noted throughout the brain consistent with chronic small vessel disease. There is no midline shift, edema, acute hemorrhage, mass effect, or abnormal extra-axial fluid collections. Bones are unremarkable. Impression: No acute intracranial bleed, mass effect or edema. 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 Moderate atrophy of the brain. Evidence of chronic small vessel disease involving white matter tracts. The CT scanner at [facility] is accredited by the [employer] and the scans are performed using dose optimization techniques as appropriate to a performed exam including Automatic Exposure control.
[2018-11-17] MEDS: Epoetin Alfa-EPBX (NON ESRD) 3000 units/ml vial SUBQ SCH (23:12)
[2018-11-18] VITALS (7 sets, daily range): BP systolic 125–160; BP diastolic 60–100
--- NOTE | 2018-11-18 04:45 | Progress Note ---
DATE: 11/17/2018 CARDIOLOGY PROGRESS NOTE SUBJECTIVE: The patient remains with a Marroquin catheter. She continues on hydration by IV route. She continues antimicrobials and wound care following debridement of decubitus. OBJECTIVE: VITAL SIGNS: Blood pressure is quite labile. Blood pressure 114/85 to 167/89, heart rate 69, respiratory rate 18, and afebrile. LUNGS: Clear. CARDIAC: Regular. Normal S1, S2 with a fourth heart sound. EXTREMITIES: Trace edema. LABORATORY DATA: White count 5.4 and hemoglobin 8.2. Sodium 149, potassium 3.8, bicarbonate 16, BUN 42, and creatinine 5.8. Albumin 2. IMPRESSION: 1. Acute on chronic renal failure. 2. Dehydration. 3. Hypernatremia. 4. Metabolic acidosis. 5. Labile hypertension. 6. Decubitus. 7. Sepsis. 8. Severe protein-calorie malnutrition. PLAN: 1. Possible dialysis. 2. Continue hydration. 3. Marroquin access. 4. Free water replacement. 5. Antimicrobials. 6. Oral and topical antihypertensive regimen with ongoing titration. Abel Stubbs M.D. DR: ALICIA JOB#: [id number] CC:
[2018-11-18] MEDS: HydrALAZINE 50mg tab ORAL SCH ×3 (05:58→17:49)
[2018-11-18 06:56] LABS: HEMATOCRIT 24.8 % (37.0-47.0); HEMOGLOBIN 7.9 G/DL (12.0-16.0); MEAN CORPUSCULAR VOLUME 92 FL (80-99); PLATELET COUNT 420 K/UL (150-450); RED CELL DISTRIBUTION WIDTH 15.3 % (11.6-14.8); WHITE BLOOD COUNT 6.3 K/UL (4.8-10.8)
[2018-11-18 07:27] LABS: PHOSPHORUS 5.5 MG/DL (2.5-4.9)
[2018-11-18 07:43] LABS: ALANINE AMINOTRANSFERASE 27 U/L (12-78); ALBUMIN/GLOBULIN RATIO 0.5 (1.0-2.7); ALKALINE PHOSPHATASE 63 U/L (46-116); ANION GAP 15 mmol/L (5-15); ASPARTATE AMINO TRANSFERASE 34 U/L (15-37); BILIRUBIN,TOTAL 0.3 MG/DL (0.2-1.0); BLOOD UREA NITROGEN 42 mg/dL (7-18); CALCIUM 8.9 MG/DL (8.5-10.1); CARBON DIOXIDE 16 MMOL/L (21-32); CHLORIDE 113 MMOL/L (98-107); CREATININE 6.1 MG/DL (0.55-1.30); POTASSIUM 3.9 MMOL/L (3.5-5.1); SODIUM 144 MMOL/L (136-145)
--- NOTE | 2018-11-18 08:12 | General Progress Note ---
Assessment/Plan Problem List: (1) Anemia due to acute blood loss ICD Codes: D62 - Acute posthemorrhagic anemia SNOMED: 777113966 (2) Dementia ICD Codes: F03.90 - Unspecified dementia without behavioral disturbance SNOMED: 67659457 (3) Renal insufficiency ICD Codes: N28.9 - Disorder of kidney and ureter, unspecified SNOMED: 696858154, 714578229 (4) Abscess of right hip ICD Codes: L02.415 - Cutaneous abscess of right lower limb SNOMED: 665166 Status: stable, progressing Assessment/Plan: cont current rx monitor h/h and labs may need transfusion epo/iron replacement abx per id follow up cultures encourage pos cont bailey for urinary retention place ngt for feeds- family agrees. they state they will contact me later about final decision regarding GT and HD Subjective ROS Limited/Unobtainable: No Constitutional: Reports: malaise, weakness HEENT: Reports: no symptoms Cardiovascular: Reports: no symptoms Respiratory: Reports: no symptoms Gastrointestinal/Abdominal: Reports: poor appetite Genitourinary: Reports: no symptoms Neurologic/Psychiatric: Reports: pre-existing deficit Endocrine: Reports: no symptoms Hematologic/Lymphatic: Reports: no symptoms Allergies: Coded Allergies: No Known Allergies (Unverified , 11/12/18) All Systems: reviewed and negative except above Subjective no change. minimal po intake. wound stable. d/w family. they are still undecided about GT and dialysis. Objective Last 24 Hour Vital Signs Date Time Temp Pulse Resp B/P (MAP) Pulse Ox O2 Delivery O2 Flow Rate FiO2 11/18/18 04:00 97.8 61 20 125/63 (83) 99 11/18/18 00:00 97.5 62 20 133/69 (90) 99 11/17/18 21:00 Room Air 11/17/18 20:00 97.3 53 20 144/56 (85) 99 11/17/18 17:14 97.3 61 18 159/61 (93) 98 11/17/18 16:00 97.4 68 18 178/72 (107) 98 11/17/18 13:47 172/94 11/17/18 12:00 97.5 69 18 167/89 (115) 98 11/17/18 09:00 Room Air 11/17/18 08:49 75 146/93 11/17/18 08:48 75 146/93 Intake and Output 11/17/18 11/18/18 19:00 07:00 Intake Total 555.0 ml 560.0 ml Output Total 200 ml 250 ml Balance 355.0 ml 310.0 ml Intake Oral 120 ml IV Total 435.0 ml 560.0 ml Output Urine Total 200 ml 250 ml # Voids 2 Laboratory Tests 11/17/18 10:00: Urine Collection Time 24, Urine Total Volume 1000, Urine Creatinine 31, Urine Creatinine 24 Hour 310L, Patient Height Inches (Creat Clear) 62, Patient Weight Pounds (Creat Clear) 85.98, Creatinine Clearance 5L, Sodium Level 149H, Potassium Level 3.8, Chloride Level 117H, Carbon Dioxide Level 16L, Anion Gap 16H, Blood Urea Nitrogen 42H, Creatinine 5.8H, Estimat Glomerular Filtration Rate , Glucose Level 144H, Calcium Level 9.2, Total Bilirubin 0.3, Aspartate Amino Transf (AST/SGOT) 19, Alanine Aminotransferase (ALT/SGPT) 19, Alkaline Phosphatase 62, Total Protein 6.4, Albumin 2.0L, Globulin 4.4, Albumin/Globulin Ratio 0.5L 11/18/18 06:17: Sodium Level 144, Potassium Level 3.9, Chloride Level 113H, Carbon Dioxide Level 16L, Anion Gap 15, Blood Urea Nitrogen 42H, Creatinine 6.1H, Estimat Glomerular Filtration Rate , Glucose Level 145H, Calcium Level 8.9, Total Bilirubin 0.3, Aspartate Amino Transf (AST/SGOT) 34, Alanine Aminotransferase ( ALT/SGPT) 27, Alkaline Phosphatase 63, Total Protein 6.1L, Albumin 2.0L, Globulin 4.1, Albumin/Globulin Ratio 0.5L, White Blood Count 6.3, Red Blood Count 2.70L, Hemoglobin 7.9L, Hematocrit 24.8L, Mean Corpuscular Volume 92, Mean Corpuscular Hemoglobin 29.2, Mean Corpuscular Hemoglobin Concent 31.8L, Red Cell Distribution Width 15.3H, Platelet Count 420, Mean Platelet Volume 4.4L , Neutrophils (%) (Auto) , Lymphocytes (%) (Auto) , Monocytes (%) (Auto) , Eosinophils (%) (Auto) , Basophils (%) (Auto) , Neutrophils % (Manual) [Pending] , Lymphocytes % (Manual) [Pending], Platelet Estimate [Pending], Platelet Morphology [Pending], Phosphorus Level 5.5H, Magnesium Level 2.0, C-Reactive Protein, Quantitative 1.3H, Pro-B-Type Natriuretic Peptide 74328F, Random Vancomycin Level 18.8 Height (Feet): 5 Height (Inches): 2.00 Weight (Pounds): 86 Objective General Appearance: WD/WN, alert, confused Neck: supple Cardiovascular: normal rate, regular rhythm Respiratory/Chest: chest wall non-tender, lungs clear, normal breath sounds Abdomen: normal bowel sounds, non tender, soft, no organomegaly Edema: no edema noted Arm (L), no edema noted Arm (R), no edema noted Leg (L), no edema noted Leg (R), no edema noted Pedal (L), no edema noted Pedal (R), no edema noted Generalized Neurologic: alert, disoriented Nate Beltran MD Nov 18, 2018 08:12
[2018-11-18] MEDS: Docusate 100mg cap ORAL SCH ×3 (10:42→17:49)
[2018-11-18] MEDS: Carvedilol 6.25mg Tab ORAL SCH ×2 (10:43→21:00)
[2018-11-18] MEDS: Heparin 5000 units/ml inj SUBQ SCH ×2 (10:51→22:02)
[2018-11-18] MEDS: Piperacillin/Tazobactam 3.375 GM in NS 110 ML IVPB SCH (11:46)
--- NOTE | 2018-11-18 12:11 | General Progress Note ---
Assessment/Plan Status: stable, progressing Assessment/Plan: GI CONSULT ATSP for feeding and possible PEG Await decision on dialysis as well. Will d/w family Thank you Cristy Elizondo MD Subjective Allergies: Coded Allergies: No Known Allergies (Unverified , 11/12/18) Objective Last 24 Hour Vital Signs Date Time Temp Pulse Resp B/P (MAP) Pulse Ox O2 Delivery O2 Flow Rate FiO2 11/18/18 11:57 160/100 11/18/18 10:43 60 160/100 11/18/18 10:42 60 160/100 11/18/18 09:00 Room Air 11/18/18 08:00 97.3 60 19 160/100 (120) 97 11/18/18 04:00 97.8 61 20 125/63 (83) 99 11/18/18 00:00 97.5 62 20 133/69 (90) 99 11/17/18 21:00 Room Air 11/17/18 20:00 97.3 53 20 144/56 (85) 99 11/17/18 17:14 97.3 61 18 159/61 (93) 98 11/17/18 16:00 97.4 68 18 178/72 (107) 98 11/17/18 13:47 172/94 Intake and Output 11/17/18 11/18/18 19:00 07:00 Intake Total 555.0 ml 560.0 ml Output Total 200 ml 250 ml Balance 355.0 ml 310.0 ml Intake Oral 120 ml IV Total 435.0 ml 560.0 ml Output Urine Total 200 ml 250 ml # Voids 2 Laboratory Tests 11/18/18 06:17: White Blood Count 6.3, Red Blood Count 2.70L, Hemoglobin 7.9L, Hematocrit 24.8L , Mean Corpuscular Volume 92, Mean Corpuscular Hemoglobin 29.2, Mean Corpuscular Hemoglobin Concent 31.8L, Red Cell Distribution Width 15.3H, Platelet Count 420, Mean Platelet Volume 4.4L, Neutrophils (%) (Auto) , Lymphocytes (%) (Auto) , Monocytes (%) (Auto) , Eosinophils (%) (Auto) , Basophils (%) (Auto) , Differential Total Cells Counted 100, Neutrophils % ( Manual) 27L, Lymphocytes % (Manual) 66H, Monocytes % (Manual) 6, Eosinophils % ( Manual) 1, Basophils % (Manual) 0, Band Neutrophils 0, Platelet Estimate Adequate, Platelet Morphology Normal, Hypochromasia 1+, Anisocytosis 1+, Sodium Level 144, Potassium Level 3.9, Chloride Level 113H, Carbon Dioxide Level 16L, Anion Gap 15, Blood Urea Nitrogen 42H, Creatinine 6.1H, Estimat Glomerular Filtration Rate , Glucose Level 145H, Calcium Level 8.9, Phosphorus Level 5.5H, Magnesium Level 2.0, Total Bilirubin 0.3, Aspartate Amino Transf (AST/SGOT) 34, Alanine Aminotransferase (ALT/SGPT) 27, Alkaline Phosphatase 63, C-Reactive Protein, Quantitative 1.3H, Pro-B-Type Natriuretic Peptide 90425V, Total Protein 6.1L, Albumin 2.0L, Globulin 4.1, Albumin/Globulin Ratio 0.5L, Random Vancomycin Level 18.8 Height (Feet): 5 Height (Inches): 2.00 Weight (Pounds): 86 Cristy Elizondo MD Nov 18, 2018 12:11
--- NOTE | 2018-11-18 15:52 | Infectious Diseases Prog Note ---
Assessment/Plan Assessment/Plan IMPRESSION: 1. Abscess, right hip status post incision and drainage. 2. Acute on chronic renal failure. 3. Urinary retention. 4. Failure to thrive and cachexia. 5. Dementia with behavioral problem. 6. Hypertension. RECOMMENDATIONS: We will follow up the cultures. Continue vancomycin Discontinue Zosyn Subjective ROS Limited/Unobtainable: Yes Neurologic: Reports: confusion, other - on restraint Allergies: Coded Allergies: No Known Allergies (Unverified , 11/12/18) Objective Vital Signs Last 24 Hour Vital Signs Date Time Temp Pulse Resp B/P (MAP) Pulse Ox O2 Delivery O2 Flow Rate FiO2 11/18/18 12:00 97.3 58 20 137/87 (104) 98 11/18/18 11:57 160/100 11/18/18 10:43 60 160/100 11/18/18 10:42 60 160/100 11/18/18 09:00 Room Air 11/18/18 08:00 97.3 60 19 160/100 (120) 97 11/18/18 04:00 97.8 61 20 125/63 (83) 99 11/18/18 00:00 97.5 62 20 133/69 (90) 99 11/17/18 21:00 Room Air 11/17/18 20:00 97.3 53 20 144/56 (85) 99 11/17/18 17:14 97.3 61 18 159/61 (93) 98 11/17/18 16:00 97.4 68 18 178/72 (107) 98 Height (Feet): 5 Height (Inches): 2.00 Weight (Pounds): 86 General Appearance: cachetic HEENT: mucous membranes moist Respiratory/Chest: lungs clear Cardiovascular: normal rate Abdomen: soft, non tender Extremities: no edema Skin: ulcers, other - R hip Neurologic/Psychiatric: alert, disoriented Microbiology Date/Time Source Procedure Growth Status 11/16/18 20:30 Other Gram Stain - Final Resulted 11/16/18 20:30 Wound Culture - Preliminary Staphylococcus Sp Coag Neg Resulted Laboratory Tests Test 11/18/18 06:17 White Blood Count 6.3 K/UL (4.8-10.8) Red Blood Count 2.70 M/UL (4.20-5.40) L Hemoglobin 7.9 G/DL (12.0-16.0) L Hematocrit 24.8 % (37.0-47.0) L Mean Corpuscular Volume 92 FL (80-99) Mean Corpuscular Hemoglobin 29.2 PG (27.0-31.0) Mean Corpuscular Hemoglobin Concent 31.8 G/DL (32.0-36.0) L Red Cell Distribution Width 15.3 % (11.6-14.8) H Platelet Count 420 K/UL (150-450) Mean Platelet Volume 4.4 FL (6.5-10.1) L Neutrophils (%) (Auto) % (45.0-75.0) Lymphocytes (%) (Auto) % (20.0-45.0) Monocytes (%) (Auto) % (1.0-10.0) Eosinophils (%) (Auto) % (0.0-3.0) Basophils (%) (Auto) % (0.0-2.0) Differential Total Cells Counted 100 Neutrophils % (Manual) 27 % (45-75) L Lymphocytes % (Manual) 66 % (20-45) H Monocytes % (Manual) 6 % (1-10) Eosinophils % (Manual) 1 % (0-3) Basophils % (Manual) 0 % (0-2) Band Neutrophils 0 % (0-8) Platelet Estimate Adequate Platelet Morphology Normal Hypochromasia 1+ Anisocytosis 1+ Sodium Level 144 MMOL/L (136-145) Potassium Level 3.9 MMOL/L (3.5-5.1) Chloride Level 113 MMOL/L (98-107) H Carbon Dioxide Level 16 MMOL/L (21-32) L Anion Gap 15 mmol/L (5-15) Blood Urea Nitrogen 42 mg/dL (7-18) H Creatinine 6.1 MG/DL (0.55-1.30) H Estimat Glomerular Filtration Rate mL/min (>60) Glucose Level 145 MG/DL (74-106) H Calcium Level 8.9 MG/DL (8.5-10.1) Phosphorus Level 5.5 MG/DL (2.5-4.9) H Magnesium Level 2.0 MG/DL (1.8-2.4) Total Bilirubin 0.3 MG/DL (0.2-1.0) Aspartate Amino Transf (AST/SGOT) 34 U/L (15-37) Alanine Aminotransferase (ALT/SGPT) 27 U/L (12-78) Alkaline Phosphatase 63 U/L (46-116) C-Reactive Protein, Quantitative 1.3 mg/dL (0.00-0.90) H Pro-B-Type Natriuretic Peptide 73852 pg/mL (0-125) H Total Protein 6.1 G/DL (6.4-8.2) L Albumin 2.0 G/DL (3.4-5.0) L Globulin 4.1 g/dL Albumin/Globulin Ratio 0.5 (1.0-2.7) L Random Vancomycin Level 18.8 ug/mL Current Medications Medications (Trade) Dose Ordered Sig/Javier Route PRN Reason Start Time Stop Time Status Last Admin Dose Admin Acetaminophen (Tylenol) 650 mg Q4H PRN ORAL Mild Pain/Temp > 100.5 11/12/18 20:00 12/12/18 19:59 11/14/18 18:39 Amlodipine Besylate (Norvasc) 10 mg DAILY ORAL 11/14/18 09:00 12/13/18 08:59 11/18/18 10:42 Carvedilol (Coreg) 12.5 mg EVERY 12 HOURS ORAL 11/17/18 09:00 12/17/18 08:59 11/18/18 10:43 Clonidine HCl (Catapres TTS-2) 1 patch QWEEK TDERMAL 11/16/18 15:00 12/16/18 14:59 11/16/18 14:41 Dextrose 1,000 ml @ 40 mls/hr Q24H IV 11/18/18 10:43 12/18/18 10:42 Docusate Sodium (Colace) 100 mg THREE TIMES A DAY ORAL 11/14/18 18:00 12/14/18 17:59 11/18/18 11:57 Epoetin Thomas (Epoetin Thomas-EPBX(NON ESRD)) 3,000 unit THU-THU-THU SUBQ 11/15/18 21:00 12/15/18 20:59 11/17/18 23:12 Heparin Sodium (Porcine) (Heparin 5000 units/ml) 5,000 units EVERY 12 HOURS SUBQ 11/13/18 21:00 12/13/18 20:59 11/18/18 10:51 Hydralazine HCl (Apresoline) 50 mg EVERY 6 HOURS ORAL 11/18/18 06:00 12/18/18 05:59 11/18/18 11:57 Lorazepam (Ativan 2mg/ml 1ml) 1 mg Q4H PRN IV Restlessness 11/13/18 12:35 11/20/18 12:34 11/17/18 16:03 Mirtazapine (Remeron) 15 mg BEDTIME ORAL 11/12/18 21:00 12/12/18 20:59 11/15/18 20:41 Ondansetron HCl (Zofran) 0.5 mg Q8H PRN IVP Nausea & Vomiting 11/12/18 20:00 12/12/18 19:59 Pantoprazole (Protonix) 40 mg DAILY ORAL 11/14/18 09:00 12/14/18 08:59 11/18/18 10:42 Piperacillin Sod/ Tazobactam Sod 3.375 gm/Sodium Chloride 110 ml @ 27.5 mls/hr Q12H IVPB 11/15/18 00:00 11/22/18 00:00 11/18/18 11:46 Quetiapine Fumarate (SEROquel) 100 mg QHS ORAL 11/12/18 21:00 12/12/18 20:59 11/15/18 20:39 Sevelamer Carbonate (Renvela) 800 mg THREE TIMES A DAY ORAL 11/14/18 18:00 12/14/18 17:59 11/18/18 11:57 Vancomycin HCl (Vanco rx to dose) 1 ea DAILY PRN MISC Per rx protocol 11/14/18 21:45 12/14/18 21:44 Warren Parks MD Nov 18, 2018 15:52
--- NOTE | 2018-11-18 16:53 | Surgery Progress Note ---
Surgery Progress Note Subjective Procedure Performed incision and drainage of right hip abscess with excisional debridement of non viable necrotic tissue and debris. Additional Comments no acute events. pulling out NG tube not cooperative with care but with dementia Objective Last 24 Hour Vital Signs Date Time Temp Pulse Resp B/P (MAP) Pulse Ox O2 Delivery O2 Flow Rate FiO2 11/18/18 16:00 97.8 60 15 139/90 (106) 99 11/18/18 12:00 97.3 58 20 137/87 (104) 98 11/18/18 11:57 160/100 11/18/18 10:43 60 160/100 11/18/18 10:42 60 160/100 11/18/18 09:00 Room Air 11/18/18 08:00 97.3 60 19 160/100 (120) 97 11/18/18 04:00 97.8 61 20 125/63 (83) 99 11/18/18 00:00 97.5 62 20 133/69 (90) 99 11/17/18 21:00 Room Air 11/17/18 20:00 97.3 53 20 144/56 (85) 99 11/17/18 17:14 97.3 61 18 159/61 (93) 98 I&O Intake and Output 11/17/18 11/18/18 19:00 07:00 Intake Total 555.0 ml 560.0 ml Output Total 200 ml 250 ml Balance 355.0 ml 310.0 ml Intake Oral 120 ml IV Total 435.0 ml 560.0 ml Output Urine Total 200 ml 250 ml # Voids 2 Dressing: saturated Wound: clean Drains: other Cardiovascular: RSR Respiratory: clear Abdomen: soft, present bowel sounds, non-distended Extremities: other Laboratory Tests Test 11/18/18 06:17 White Blood Count 6.3 K/UL (4.8-10.8) Red Blood Count 2.70 M/UL (4.20-5.40) L Hemoglobin 7.9 G/DL (12.0-16.0) L Hematocrit 24.8 % (37.0-47.0) L Mean Corpuscular Volume 92 FL (80-99) Mean Corpuscular Hemoglobin 29.2 PG (27.0-31.0) Mean Corpuscular Hemoglobin Concent 31.8 G/DL (32.0-36.0) L Red Cell Distribution Width 15.3 % (11.6-14.8) H Platelet Count 420 K/UL (150-450) Mean Platelet Volume 4.4 FL (6.5-10.1) L Neutrophils (%) (Auto) % (45.0-75.0) Lymphocytes (%) (Auto) % (20.0-45.0) Monocytes (%) (Auto) % (1.0-10.0) Eosinophils (%) (Auto) % (0.0-3.0) Basophils (%) (Auto) % (0.0-2.0) Differential Total Cells Counted 100 Neutrophils % (Manual) 27 % (45-75) L Lymphocytes % (Manual) 66 % (20-45) H Monocytes % (Manual) 6 % (1-10) Eosinophils % (Manual) 1 % (0-3) Basophils % (Manual) 0 % (0-2) Band Neutrophils 0 % (0-8) Platelet Estimate Adequate Platelet Morphology Normal Hypochromasia 1+ Anisocytosis 1+ Sodium Level 144 MMOL/L (136-145) Potassium Level 3.9 MMOL/L (3.5-5.1) Chloride Level 113 MMOL/L (98-107) H Carbon Dioxide Level 16 MMOL/L (21-32) L Anion Gap 15 mmol/L (5-15) Blood Urea Nitrogen 42 mg/dL (7-18) H Creatinine 6.1 MG/DL (0.55-1.30) H Estimat Glomerular Filtration Rate mL/min (>60) Glucose Level 145 MG/DL (74-106) H Calcium Level 8.9 MG/DL (8.5-10.1) Phosphorus Level 5.5 MG/DL (2.5-4.9) H Magnesium Level 2.0 MG/DL (1.8-2.4) Total Bilirubin 0.3 MG/DL (0.2-1.0) Aspartate Amino Transf (AST/SGOT) 34 U/L (15-37) Alanine Aminotransferase (ALT/SGPT) 27 U/L (12-78) Alkaline Phosphatase 63 U/L (46-116) C-Reactive Protein, Quantitative 1.3 mg/dL (0.00-0.90) H Pro-B-Type Natriuretic Peptide 35677 pg/mL (0-125) H Total Protein 6.1 G/DL (6.4-8.2) L Albumin 2.0 G/DL (3.4-5.0) L Globulin 4.1 g/dL Albumin/Globulin Ratio 0.5 (1.0-2.7) L Random Vancomycin Level 18.8 ug/mL Assessment Post-op Diagnosis large right hip abscess with necrotic non viable tissue. Plan Problems: (1) Abscess of right hip Assessment & Plan: 78F with abscess of right hip, large, deep. on exam mainly looks like cellulitis but once abscess drained significant fluid it was apparent that it was much deeper. proper care necessary and unfortunately unable to get in contact with family. called daughter without reply. abscess needs drainage, washout and proper care. s/p drainage, debridement, washout improving since will likely need feeding tube since note tolerating enough diet needs nutrition to heal this wound -pending PEG placement -Nursing to do packing and dressing TID -IV abx -will follow with recs -thank you Camilo James Nov 18, 2018 16:53
--- NOTE | 2018-11-18 17:30 | Consultation ---
DATE OF CONSULTATION: 11/18/2018 GASTROENTEROLOGY CONSULTATION CONSULTING PHYSICIAN: Cristy Elizondo M.D. CHIEF COMPLAINT: I was asked to see the patient by Dr. Nate Beltran for possible gastrostomy tube placement. HISTORY OF PRESENT ILLNESS: The patient is an unfortunate 78-year-old woman with longstanding history of multiple medical problems including schizophrenia and renal disease who was brought into the hospital due to cellulitis. She has a poor oral intake and nasogastric tube was in place for temporary feeding. She also has renal failure with creatinine clearance of 5 mL approaching dialysis. The family have not made a decision with regard to level of care as far as gastrostomy tube is considered. They are also apparently are thinking about dialysis decision. In the meantime, the patient had nasogastric tube placed for feeding. She also has a large abscess in the right hip which was treated. PAST MEDICAL HISTORY: History of schizophrenia, renal failure, hypertension, diabetes, right hip abscess, dementia. FAMILY HISTORY: Noncontributory. SOCIAL HISTORY: The patient is from a residential. ALLERGIES: None. REVIEW OF SYSTEMS: Otherwise negative. MEDICATIONS: See chart list for details. PHYSICAL EXAMINATION: GENERAL: Debilitated thin elderly woman seen in her room. HEENT: Normocephalic and atraumatic. Sclerae anicteric. Dentition is poor. NECK: Supple. CHEST: Clear to auscultation. CARDIOVASCULAR: Revealed a regular rate. ABDOMEN: Soft and flat. Her right hip wound was noted. EXTREMITIES: Revealed some mild contractures. LABORATORY DATA: Noted. ASSESSMENT: This patient presents with poor oral intake with malnutrition and could benefit from nasogastric and gastrostomy tube feeding for long-term feeding and access. The patient however is approaching dialysis and that issue should perhaps be addressed first. Should the family agree with dialysis, I would the optimize her electrolytes and acid-base status prior to gastrostomy tube placement. In the meantime, the patient can receive a nasogastric feeding to maintain nutritional support. I will discuss the matter with the patient's family and will follow this patient with you. Thank you for asking me to participate in care this patient. Cristy Elizondo M.D. DR: Brigette JOB#: [id number] CC:
[2018-11-18] MEDS: NovoLOG Insulin Flexpen SUBQ SCH (22:03)
[2018-11-19] VITALS: BP 146/60
[2018-11-19] MEDS: LORazepam Inj 2mg/ml 1ml IV PRN ×2 (00:47→23:47)
[2018-11-19] MEDS: HydrALAZINE 50mg tab ORAL SCH ×5 (00:56→17:55)
[2018-11-19 04:05] VITALS: BP 125/65
[2018-11-19] MEDS: NovoLOG Insulin Flexpen SUBQ SCH ×3 (06:01→17:44)
--- NOTE | 2018-11-19 07:09 | General Progress Note ---
Assessment/Plan Problem List: (1) Anemia due to acute blood loss ICD Codes: D62 - Acute posthemorrhagic anemia SNOMED: 860246453 (2) Dementia ICD Codes: F03.90 - Unspecified dementia without behavioral disturbance SNOMED: 30197502 (3) Renal insufficiency ICD Codes: N28.9 - Disorder of kidney and ureter, unspecified SNOMED: 286499765, 199321109 (4) Abscess of right hip ICD Codes: L02.415 - Cutaneous abscess of right lower limb SNOMED: 866173 Status: stable, progressing Assessment/Plan: cont current rx monitor h/h and labs may need transfusion epo/iron replacement abx per id follow up cultures encourage pos cont bailey for urinary retention cont ngt feeds family flying in to make decision about gt and HD Subjective ROS Limited/Unobtainable: Yes Constitutional: Reports: malaise, weakness HEENT: Reports: no symptoms Cardiovascular: Reports: no symptoms Respiratory: Reports: no symptoms Gastrointestinal/Abdominal: Reports: poor appetite, poor fluid intake Genitourinary: Reports: no symptoms Neurologic/Psychiatric: Reports: no symptoms Endocrine: Reports: no symptoms Hematologic/Lymphatic: Reports: no symptoms Allergies: Coded Allergies: No Known Allergies (Unverified , 11/12/18) All Systems: reviewed and negative except above Subjective ngt in place. tolerating gt feeds. Objective Last 24 Hour Vital Signs Date Time Temp Pulse Resp B/P (MAP) Pulse Ox O2 Delivery O2 Flow Rate FiO2 11/19/18 06:00 124/60 11/19/18 04:05 98.0 56 18 125/65 (85) 98 11/19/18 00:56 146/60 11/19/18 00:00 96.6 74 22 146/60 (88) 97 11/18/18 21:00 Room Air 11/18/18 21:00 56 152/72 11/18/18 20:00 97.2 56 20 152/72 (98) 96 11/18/18 17:49 139/90 11/18/18 16:00 97.8 60 15 139/90 (106) 99 11/18/18 12:00 97.3 58 20 137/87 (104) 98 11/18/18 11:57 160/100 11/18/18 10:43 60 160/100 11/18/18 10:42 60 160/100 11/18/18 09:00 Room Air 11/18/18 08:00 97.3 60 19 160/100 (120) 97 Intake and Output 11/18/18 11/19/18 19:00 07:00 Intake Total 110 ml 770 ml Output Total 700 ml 300 ml Balance -590 ml 470 ml Free Water 240 ml IV Total 200 ml Tube Feeding 110 ml 330 ml Output Urine Total 700 ml 300 ml # Bowel Movements 2 Laboratory Tests 11/19/18 05:32: Random Vancomycin Level [Pending] Height (Feet): 5 Height (Inches): 2.00 Weight (Pounds): 86 General Appearance: WD/WN, confused Neck: supple Cardiovascular: normal rate Respiratory/Chest: chest wall non-tender, lungs clear, normal breath sounds Abdomen: normal bowel sounds, non tender, soft, no organomegaly Edema: no edema noted Arm (L), no edema noted Arm (R), no edema noted Leg (L), no edema noted Leg (R), no edema noted Pedal (L), no edema noted Pedal (R), no edema noted Generalized Objective General Appearance: WD/WN, alert, confused Neck: supple Cardiovascular: normal rate, regular rhythm Respiratory/Chest: chest wall non-tender, lungs clear, normal breath sounds Abdomen: normal bowel sounds, non tender, soft, no organomegaly Edema: no edema noted Arm (L), no edema noted Arm (R), no edema noted Leg (L), no edema noted Leg (R), no edema noted Pedal (L), no edema noted Pedal (R), no edema noted Generalized Neurologic: alert, disoriented Nate Beltran MD Nov 19, 2018 07:09
[2018-11-19 08:00] VITALS: BP 99/46
[2018-11-19] MEDS ORDERED: Vancomycin 500mg/D5W 110ml IVPB SCH ×2 (09:00)
[2018-11-19] MEDS: Carvedilol 6.25mg Tab ORAL SCH (09:00)
[2018-11-19] MEDS: Heparin 5000 units/ml inj SUBQ SCH ×2 (09:10→21:30)
[2018-11-19] MEDS: Docusate 100mg cap ORAL SCH ×3 (09:10→17:52)
--- NOTE | 2018-11-19 10:49 | Infectious Diseases Prog Note ---
Assessment/Plan Assessment/Plan antibiotics : vancomycin iv A 1. right hip abscess s/p i and d 2. renal failure 3. hypertension 4. dementia P 1. d/c iv vancomycin 2. start and continue po doxycycline 4 more days 3. will follow up cultures Subjective ROS Limited/Unobtainable: Yes Allergies: Coded Allergies: No Known Allergies (Unverified , 11/12/18) Objective Vital Signs Last 24 Hour Vital Signs Date Time Temp Pulse Resp B/P (MAP) Pulse Ox O2 Delivery O2 Flow Rate FiO2 11/19/18 09:00 50 99/46 11/19/18 09:00 50 99/46 11/19/18 09:00 Room Air 11/19/18 08:00 95.6 50 20 99/46 (63) 99 11/19/18 06:00 124/60 11/19/18 04:05 98.0 56 18 125/65 (85) 98 11/19/18 00:56 146/60 11/19/18 00:00 96.6 74 22 146/60 (88) 97 11/18/18 21:00 Room Air 11/18/18 21:00 56 152/72 11/18/18 20:00 97.2 56 20 152/72 (98) 96 11/18/18 17:49 139/90 11/18/18 16:00 97.8 60 15 139/90 (106) 99 11/18/18 12:00 97.3 58 20 137/87 (104) 98 11/18/18 11:57 160/100 Height (Feet): 5 Height (Inches): 2.00 Weight (Pounds): 86 Respiratory/Chest: lungs clear Cardiovascular: normal rate, regular rhythm, no gallop/murmur Abdomen: soft, non tender Extremities: no edema Microbiology Date/Time Source Procedure Growth Status 11/16/18 20:30 Other Gram Stain - Final Resulted 11/16/18 20:30 Wound Culture - Preliminary Staphylococcus Sp Coag Neg Resulted Laboratory Tests Test 11/19/18 05:32 Random Vancomycin Level 15.6 ug/mL Current Medications Medications (Trade) Dose Ordered Sig/Javier Route PRN Reason Start Time Stop Time Status Last Admin Dose Admin Acetaminophen (Tylenol) 650 mg Q4H PRN ORAL Mild Pain/Temp > 100.5 11/12/18 20:00 12/12/18 19:59 6/2/19 18:39 Amlodipine Besylate (Norvasc) 10 mg DAILY ORAL 11/14/18 09:00 12/13/18 08:59 11/18/18 10:42 Carvedilol (Coreg) 12.5 mg EVERY 12 HOURS ORAL 11/17/18 09:00 12/17/18 08:59 11/18/18 10:43 Clonidine HCl (Catapres TTS-2) 1 patch QWEEK TDERMAL 11/16/18 15:00 12/16/18 14:59 11/16/18 14:41 Dextrose 1,000 ml @ 40 mls/hr Q24H IV 11/18/18 10:43 12/18/18 10:42 11/19/18 01:33 Dextrose (Dextrose 50%) 25 ml Q30M PRN IV Hypoglycemia 11/18/18 16:00 12/18/18 15:59 Dextrose (Dextrose 50%) 50 ml Q30M PRN IV Hypoglycemia 11/18/18 16:00 12/18/18 15:59 Docusate Sodium (Colace) 100 mg THREE TIMES A DAY ORAL 11/14/18 18:00 12/14/18 17:59 11/19/18 09:10 Epoetin Thomas (Epoetin Thomas-EPBX(NON ESRD)) 3,000 unit THU-THU-THU SUBQ 11/15/18 21:00 12/15/18 20:59 11/17/18 23:12 Heparin Sodium (Porcine) (Heparin 5000 units/ml) 5,000 units EVERY 12 HOURS SUBQ 11/13/18 21:00 12/13/18 20:59 11/19/18 09:10 Hydralazine HCl (Apresoline) 50 mg EVERY 6 HOURS ORAL 11/18/18 06:00 12/18/18 05:59 11/19/18 06:00 Insulin Aspart (NovoLOG) BEFORE MEALS AND HS SUBQ 11/18/18 21:00 12/18/18 20:59 11/19/18 06:01 Lorazepam (Ativan 2mg/ml 1ml) 1 mg Q4H PRN IV Restlessness 11/13/18 12:35 11/20/18 12:34 11/19/18 00:47 Mirtazapine (Remeron) 15 mg BEDTIME ORAL 11/12/18 21:00 12/12/18 20:59 11/18/18 22:01 Ondansetron HCl (Zofran) 0.5 mg Q8H PRN IVP Nausea & Vomiting 11/12/18 20:00 12/12/18 19:59 Pantoprazole (Protonix) 40 mg DAILY ORAL 11/14/18 09:00 12/14/18 08:59 11/19/18 09:10 Quetiapine Fumarate (SEROquel) 100 mg QHS ORAL 11/12/18 21:00 12/12/18 20:59 11/18/18 22:01 Sevelamer Carbonate (Renvela) 800 mg THREE TIMES A DAY ORAL 11/14/18 18:00 12/14/18 17:59 11/19/18 09:10 Vancomycin HCl (Vanco rx to dose) 1 ea DAILY PRN MISC Per rx protocol 11/14/18 21:45 12/14/18 21:44 Vancomycin HCl 500 mg/Dextrose 110 ml @ 110 mls/hr ONCE IVPB 11/19/18 09:00 11/19/18 11:00 11/19/18 09:52 Melissa Solares MD Nov 19, 2018 10:49
[2018-11-19 12:00] VITALS: BP 93/44
--- NOTE | 2018-11-19 12:55 | Nephrology Progress Note ---
Assessment/Plan Problem List: (1) Abscess of right hip (2) Renal failure (ARF), acute on chronic (3) Urinary retention (4) Diabetes mellitus (5) Failure to thrive Assessment Renal failure: - Acute , due to meds- Obstruction.... - Chronic: Due to underlying ?HTN / DM ... Urinary Retention in ANJEL HyperGlycemia / DM / Proteinuria Anemia Right hip abcess UTI . Plan stop Coreg and TTS patch due to low BP and low HR monitor renal parameters bailey cath monitor I&O Hydrate Keep BP and BS in check Avoid Nephrotoxics Antibiotics and surgical fu Urine studies Vanco level 24 on 11/16 has NGT , will start Nepro Dialysis ? CrCl 5 Subjective ROS Limited/Unobtainable: No Constitutional: Reports: malaise Objective Objective Last 24 Hour Vital Signs Date Time Temp Pulse Resp B/P (MAP) Pulse Ox O2 Delivery O2 Flow Rate FiO2 11/19/18 12:00 95/57 11/19/18 09:00 50 99/46 11/19/18 09:00 50 99/46 11/19/18 09:00 Room Air 11/19/18 08:00 95.6 50 20 99/46 (63) 99 11/19/18 06:00 124/60 11/19/18 04:05 98.0 56 18 125/65 (85) 98 11/19/18 00:56 146/60 11/19/18 00:00 96.6 74 22 146/60 (88) 97 11/18/18 21:00 Room Air 11/18/18 21:00 56 152/72 11/18/18 20:00 97.2 56 20 152/72 (98) 96 11/18/18 17:49 139/90 11/18/18 16:00 97.8 60 15 139/90 (106) 99 Intake and Output 11/18/18 11/19/18 19:00 07:00 Intake Total 110 ml 770 ml Output Total 700 ml 300 ml Balance -590 ml 470 ml Free Water 240 ml IV Total 200 ml Tube Feeding 110 ml 330 ml Output Urine Total 700 ml 300 ml # Bowel Movements 2 Laboratory Tests 11/19/18 05:32: Random Vancomycin Level 15.6 Height (Feet): 5 Height (Inches): 2.00 Weight (Pounds): 86 General Appearance: lethargic EENT: other - NGT Cardiovascular: bradycardia Respiratory/Chest: decreased breath sounds Abdomen: distended Objective no change William Blackwood MD Nov 19, 2018 12:55
[2018-11-19] MEDS ORDERED: Albumin Human 5% 250ml IV SCH (14:00)
--- NOTE | 2018-11-19 14:36 | Surgery Progress Note ---
Surgery Progress Note Subjective Procedure Performed incision and drainage of right hip abscess with excisional debridement of non viable necrotic tissue and debris. Additional Comments no acute events. comfortable. stable. wound much improved. patient more comfortable. Objective Last 24 Hour Vital Signs Date Time Temp Pulse Resp B/P (MAP) Pulse Ox O2 Delivery O2 Flow Rate FiO2 11/19/18 13:57 155/57 11/19/18 12:00 97.3 46 20 93/44 (60) 98 11/19/18 12:00 95/57 11/19/18 09:00 50 99/46 11/19/18 09:00 50 99/46 11/19/18 09:00 Room Air 11/19/18 08:00 95.6 50 20 99/46 (63) 99 11/19/18 06:00 124/60 11/19/18 04:05 98.0 56 18 125/65 (85) 98 11/19/18 00:56 146/60 11/19/18 00:00 96.6 74 22 146/60 (88) 97 11/18/18 21:00 Room Air 11/18/18 21:00 56 152/72 11/18/18 20:00 97.2 56 20 152/72 (98) 96 11/18/18 17:49 139/90 11/18/18 16:00 97.8 60 15 139/90 (106) 99 I&O Intake and Output 11/18/18 11/19/18 19:00 07:00 Intake Total 110 ml 770 ml Output Total 700 ml 300 ml Balance -590 ml 470 ml Free Water 240 ml IV Total 200 ml Tube Feeding 110 ml 330 ml Output Urine Total 700 ml 300 ml # Bowel Movements 2 Dressing: saturated Wound: clean Cardiovascular: RSR Respiratory: clear Abdomen: soft, flat, non-tender, present bowel sounds Extremities: edema - improved, tenderness - improved, no cyanosis Laboratory Tests Test 11/19/18 05:32 Random Vancomycin Level 15.6 ug/mL Assessment Post-op Diagnosis large right hip abscess with necrotic non viable tissue. Plan Problems: (1) Abscess of right hip Assessment & Plan: 78F with abscess of right hip, large, deep. on exam mainly looks like cellulitis but once abscess drained significant fluid it was apparent that it was much deeper. proper care necessary and unfortunately unable to get in contact with family. called daughter without reply. abscess needs drainage, washout and proper care. s/p drainage, debridement, washout improving since will likely need feeding tube since note tolerating enough diet needs nutrition to heal this wound overall wound much improved -pending PEG placement -Nursing to do packing and dressing TID -IV abx -will follow with recs -thank you Camilo James Nov 19, 2018 14:36
[2018-11-19 16:00] VITALS: BP 112/55
--- NOTE | 2018-11-19 17:46 | Diagnostic Imaging Report ---
Indication: NG tube placement Comparison: None Single view of the abdomen obtained Findings: NG tube is in good position curled in the stomach. Most of the abdomen is not imaged on this exam below the midportion. IMPRESSION: NG tube in good position
--- NOTE | 2018-11-19 17:46 | Diagnostic Imaging Report ---
Indication: NG tube placement Comparison: None Single view of the abdomen obtained Findings: NG tube tip is in the stomach. The proximal port is probably in the upper stomach just below the EG junction. Bowel gas pattern is nonspecific as visualized. IMPRESSION: NG tube in satisfactory position
--- NOTE | 2018-11-19 19:05 | General Progress Note ---
Assessment/Plan Status: stable, progressing Assessment/Plan: Assessment - dysphagia, NGT - renal failure - (R) hip infection - bed bound - d/w son ([phone] is his [place] number but he is currently in [place]) over the phone - a number of family members are flying in Thursday from [place] to see patient and to make final level of care decision Recommendation - Continue NGT feeds - continue current level of care - Family to see patient Thursday and make decision re TF and HD Subjective Allergies: Coded Allergies: No Known Allergies (Unverified , 11/12/18) Subjective above noted tolerating TF non communicative Objective Last 24 Hour Vital Signs Date Time Temp Pulse Resp B/P (MAP) Pulse Ox O2 Delivery O2 Flow Rate FiO2 11/19/18 17:55 145/66 11/19/18 16:00 96.0 50 20 112/55 (74) 99 11/19/18 13:57 155/57 11/19/18 12:00 97.3 46 20 93/44 (60) 98 11/19/18 12:00 95/57 11/19/18 09:00 50 99/46 11/19/18 09:00 50 99/46 11/19/18 09:00 Room Air 11/19/18 08:00 95.6 50 20 99/46 (63) 99 11/19/18 06:00 124/60 11/19/18 04:05 98.0 56 18 125/65 (85) 98 11/19/18 00:56 146/60 11/19/18 00:00 96.6 74 22 146/60 (88) 97 11/18/18 21:00 Room Air 11/18/18 21:00 56 152/72 11/18/18 20:00 97.2 56 20 152/72 (98) 96 Intake and Output 11/18/18 11/19/18 19:00 07:00 Intake Total 110 ml 770 ml Output Total 700 ml 300 ml Balance -590 ml 470 ml Free Water 240 ml IV Total 200 ml Tube Feeding 110 ml 330 ml Output Urine Total 700 ml 300 ml # Bowel Movements 2 Laboratory Tests 11/19/18 05:32: Random Vancomycin Level 15.6 Height (Feet): 5 Height (Inches): 2.00 Weight (Pounds): 86 Objective Thin woman NCAT Neck supple supple chest CTA RRR Abd Soft, NT, ND no edema Cristy Elizondo MD Nov 19, 2018 19:05
[2018-11-19 20:00] VITALS: BP 134/61
[2018-11-19] MEDS: Epoetin Alfa-EPBX (NON ESRD) 3000 units/ml vial SUBQ SCH (21:00)
[2018-11-20] VITALS (9 sets, daily range): BP systolic 107–196; BP diastolic 56–90
[2018-11-20] MEDS: NovoLOG Insulin Flexpen SUBQ SCH ×4 (05:48→18:12)
[2018-11-20] MEDS: HydrALAZINE 50mg tab ORAL SCH ×4 (05:48→18:11)
[2018-11-20 07:11] LABS: BASOPHILS % (AUTO) 0.9 % (0.0-2.0); EOSINOPHILS % (AUTO) 3.1 % (0.0-3.0); HEMATOCRIT 27.3 % (37.0-47.0); HEMOGLOBIN 8.8 G/DL (12.0-16.0); LYMPHOCYTES % (AUTO) 51.5 % (20.0-45.0); MEAN CORPUSCULAR VOLUME 92 FL (80-99); MONOCYTES % (AUTO) 5.6 % (1.0-10.0); NEUTROPHILS % (AUTO) 38.9 % (45.0-75.0); PLATELET COUNT 299 K/UL (150-450); RED BLOOD COUNT 2.98 M/UL (4.20-5.40); RED CELL DISTRIBUTION WIDTH 15.9 % (11.6-14.8); WHITE BLOOD COUNT 8.5 K/UL (4.8-10.8)
[2018-11-20 07:49] LABS: ALANINE AMINOTRANSFERASE 22 U/L (12-78); ALBUMIN 2.1 G/DL (3.4-5.0); ALBUMIN/GLOBULIN RATIO 0.5 (1.0-2.7); ALKALINE PHOSPHATASE 65 U/L (46-116); ANION GAP 12 mmol/L (5-15); ASPARTATE AMINO TRANSFERASE 25 U/L (15-37); BILIRUBIN,TOTAL 0.2 MG/DL (0.2-1.0); BLOOD UREA NITROGEN 48 mg/dL (7-18); CALCIUM 9.5 MG/DL (8.5-10.1); CARBON DIOXIDE 19 MMOL/L (21-32); CHLORIDE 107 MMOL/L (98-107); CREATININE 6.1 MG/DL (0.55-1.30); POTASSIUM 3.8 MMOL/L (3.5-5.1); SODIUM 137 MMOL/L (136-145)
[2018-11-20] MEDS: Docusate 100mg cap ORAL SCH ×3 (09:00→18:00)
[2018-11-20] MEDS: Heparin 5000 units/ml inj SUBQ SCH ×2 (09:00→20:03)
--- NOTE | 2018-11-20 10:35 | General Progress Note ---
Assessment/Plan Problem List: (1) Anemia due to acute blood loss ICD Codes: D62 - Acute posthemorrhagic anemia SNOMED: 382377218 (2) Dementia ICD Codes: F03.90 - Unspecified dementia without behavioral disturbance SNOMED: 26455494 (3) Renal insufficiency ICD Codes: N28.9 - Disorder of kidney and ureter, unspecified SNOMED: 387736619, 067475796 (4) Abscess of right hip ICD Codes: L02.415 - Cutaneous abscess of right lower limb SNOMED: 837550 Status: stable, progressing Assessment/Plan: cont current rx monitor h/h and labs may need transfusion epo/iron replacement abx per id HD per renal cont bailey for urinary retention cont ngt feeds family flying in to make decision about gt Subjective ROS Limited/Unobtainable: Yes Constitutional: Reports: malaise, weakness HEENT: Reports: no symptoms Cardiovascular: Reports: no symptoms Respiratory: Reports: no symptoms Gastrointestinal/Abdominal: Reports: difficulty swallowing, poor appetite Genitourinary: Reports: no symptoms Neurologic/Psychiatric: Reports: emotional problems, pre-existing deficit Endocrine: Reports: no symptoms Hematologic/Lymphatic: Reports: anemia Allergies: Coded Allergies: No Known Allergies (Unverified , 11/12/18) All Systems: reviewed and negative except above Subjective ngt in place. tolerating gt feeds. pulled out ngt again yesterday. replaced. son wants to proceed with HD Objective Last 24 Hour Vital Signs Date Time Temp Pulse Resp B/P (MAP) Pulse Ox O2 Delivery O2 Flow Rate FiO2 11/20/18 05:48 170/90 11/20/18 04:00 96.5 82 19 170/90 (116) 99 11/20/18 00:00 96.6 86 22 170/85 (113) 97 11/20/18 00:00 170/85 11/19/18 21:00 Room Air 11/19/18 20:00 96.6 59 19 134/61 (85) 96 11/19/18 17:55 145/66 11/19/18 16:00 96.0 50 20 112/55 (74) 99 11/19/18 13:57 155/57 11/19/18 12:00 97.3 46 20 93/44 (60) 98 11/19/18 12:00 95/57 Intake and Output 11/19/18 11/20/18 19:00 07:00 Intake Total 30 ml 660 ml Output Total 250 ml 850 ml Balance -220 ml -190 ml Free Water 400 ml Tube Feeding 30 ml 260 ml Output Urine Total 250 ml 850 ml # Bowel Movements 3 Laboratory Tests 11/20/18 05:00: White Blood Count 8.5, Red Blood Count 2.98L, Hemoglobin 8.8L, Hematocrit 27.3L , Mean Corpuscular Volume 92, Mean Corpuscular Hemoglobin 29.7, Mean Corpuscular Hemoglobin Concent 32.4, Red Cell Distribution Width 15.9H, Platelet Count 299, Mean Platelet Volume 4.0L, Neutrophils (%) (Auto) 38.9L, Lymphocytes (%) (Auto) 51.5H, Monocytes (%) (Auto) 5.6, Eosinophils (%) (Auto) 3.1H, Basophils (%) (Auto) 0.9, Prothrombin Time 10.7, Prothromb Time International Ratio 1.0, Activated Partial Thromboplast Time 25, Sodium Level 137, Potassium Level 3.8, Chloride Level 107, Carbon Dioxide Level 19L, Anion Gap 12, Blood Urea Nitrogen 48H, Creatinine 6.1H, Estimat Glomerular Filtration Rate , Glucose Level 115H, Uric Acid 6.4, Calcium Level 9.5, Phosphorus Level 5.0H, Magnesium Level 2.2, Total Bilirubin 0.2, Aspartate Amino Transf (AST/SGOT ) 25, Alanine Aminotransferase (ALT/SGPT) 22, Alkaline Phosphatase 65, Total Protein 6.3L, Albumin 2.1L, Globulin 4.2, Albumin/Globulin Ratio 0.5L Height (Feet): 5 Height (Inches): 2.00 Weight (Pounds): 86 Objective General Appearance: WD/WN, alert, confused Neck: supple Cardiovascular: normal rate, regular rhythm Respiratory/Chest: chest wall non-tender, lungs clear, normal breath sounds Abdomen: normal bowel sounds, non tender, soft, no organomegaly Edema: no edema noted Arm (L), no edema noted Arm (R), no edema noted Leg (L), no edema noted Leg (R), no edema noted Pedal (L), no edema noted Pedal (R), no edema noted Generalized Neurologic: alert, disoriented Nate Beltran MD Nov 20, 2018 10:35
--- NOTE | 2018-11-20 11:58 | Nephrology Progress Note ---
Assessment/Plan Problem List: (1) Abscess of right hip (2) Renal failure (ARF), acute on chronic (3) Urinary retention (4) Diabetes mellitus (5) Failure to thrive Assessment Renal failure: - Acute , due to meds- Obstruction.... - Chronic: Due to underlying ?HTN / DM ... Urinary Retention in ANJEL HyperGlycemia / DM / Proteinuria Anemia Right hip abcess UTI . Plan dialysis today after insertion of Cath stop Coreg and TTS patch due to low BP and low HR monitor renal parameters bailey cath monitor I&O Hydrate Keep BP and BS in check Avoid Nephrotoxics Antibiotics and surgical fu Urine studies Vanco level 24 on 11/16 has NGT , will start Nepro Dialysis ? CrCl 5 Subjective ROS Limited/Unobtainable: No Constitutional: Reports: malaise Objective Objective Last 24 Hour Vital Signs Date Time Temp Pulse Resp B/P (MAP) Pulse Ox O2 Delivery O2 Flow Rate FiO2 11/20/18 10:46 62 152/82 11/20/18 09:00 Room Air 11/20/18 09:00 98.0 62 19 128/72 (90) 99 11/20/18 08:00 98.1 82 19 148/73 (98) 99 11/20/18 05:48 170/90 11/20/18 04:00 96.5 82 19 170/90 (116) 99 11/20/18 00:00 96.6 86 22 170/85 (113) 97 11/20/18 00:00 170/85 11/19/18 21:00 Room Air 11/19/18 20:00 96.6 59 19 134/61 (85) 96 11/19/18 17:55 145/66 11/19/18 16:00 96.0 50 20 112/55 (74) 99 11/19/18 13:57 155/57 11/19/18 12:00 97.3 46 20 93/44 (60) 98 11/19/18 12:00 95/57 Intake and Output 11/19/18 11/20/18 19:00 07:00 Intake Total 30 ml 660 ml Output Total 250 ml 850 ml Balance -220 ml -190 ml Free Water 400 ml Tube Feeding 30 ml 260 ml Output Urine Total 250 ml 850 ml # Bowel Movements 3 Laboratory Tests 11/20/18 05:00: White Blood Count 8.5, Red Blood Count 2.98L, Hemoglobin 8.8L, Hematocrit 27.3L , Mean Corpuscular Volume 92, Mean Corpuscular Hemoglobin 29.7, Mean Corpuscular Hemoglobin Concent 32.4, Red Cell Distribution Width 15.9H, Platelet Count 299, Mean Platelet Volume 4.0L, Neutrophils (%) (Auto) 38.9L, Lymphocytes (%) (Auto) 51.5H, Monocytes (%) (Auto) 5.6, Eosinophils (%) (Auto) 3.1H, Basophils (%) (Auto) 0.9, Prothrombin Time 10.7, Prothromb Time International Ratio 1.0, Activated Partial Thromboplast Time 25, Sodium Level 137, Potassium Level 3.8, Chloride Level 107, Carbon Dioxide Level 19L, Anion Gap 12, Blood Urea Nitrogen 48H, Creatinine 6.1H, Estimat Glomerular Filtration Rate , Glucose Level 115H, Uric Acid 6.4, Calcium Level 9.5, Phosphorus Level 5.0H, Magnesium Level 2.2, Total Bilirubin 0.2, Aspartate Amino Transf (AST/SGOT ) 25, Alanine Aminotransferase (ALT/SGPT) 22, Alkaline Phosphatase 65, Total Protein 6.3L, Albumin 2.1L, Globulin 4.2, Albumin/Globulin Ratio 0.5L Height (Feet): 5 Height (Inches): 2.00 Weight (Pounds): 86 General Appearance: no apparent distress EENT: other - NGT Respiratory/Chest: decreased breath sounds Abdomen: soft Objective no change William Blackwood MD Nov 20, 2018 11:58
[2018-11-20] MEDS: Renvela 800mg Pkt NG SCH ×2 (12:52→18:09)
[2018-11-20] MEDS: Doxazosin 1mg Tab ORAL SCH (12:52)
--- NOTE | 2018-11-20 14:08 | Surgery Progress Note ---
Surgery Progress Note Subjective Procedure Performed incision and drainage of right hip abscess with excisional debridement of non viable necrotic tissue and debris. Additional Comments wound stable and improving needs HD . line placed at bedside today Objective Last 24 Hour Vital Signs Date Time Temp Pulse Resp B/P (MAP) Pulse Ox O2 Delivery O2 Flow Rate FiO2 11/20/18 12:00 98.6 61 12 196/83 (120) 99 11/20/18 10:46 62 152/82 11/20/18 09:00 Room Air 11/20/18 09:00 98.0 62 19 128/72 (90) 99 11/20/18 08:00 98.1 82 19 148/73 (98) 99 11/20/18 05:48 170/90 11/20/18 04:00 96.5 82 19 170/90 (116) 99 11/20/18 00:00 96.6 86 22 170/85 (113) 97 11/20/18 00:00 170/85 11/19/18 21:00 Room Air 11/19/18 20:00 96.6 59 19 134/61 (85) 96 11/19/18 17:55 145/66 11/19/18 16:00 96.0 50 20 112/55 (74) 99 I&O Intake and Output 11/19/18 11/20/18 19:00 07:00 Intake Total 30 ml 660 ml Output Total 250 ml 850 ml Balance -220 ml -190 ml Free Water 400 ml Tube Feeding 30 ml 260 ml Output Urine Total 250 ml 850 ml # Bowel Movements 3 Dressing: saturated Wound: clean Cardiovascular: RSR Respiratory: clear Abdomen: soft, flat, non-tender, non-distended Extremities: edema, no tenderness, no cyanosis Laboratory Tests Test 11/20/18 05:00 White Blood Count 8.5 K/UL (4.8-10.8) Red Blood Count 2.98 M/UL (4.20-5.40) L Hemoglobin 8.8 G/DL (12.0-16.0) L Hematocrit 27.3 % (37.0-47.0) L Mean Corpuscular Volume 92 FL (80-99) Mean Corpuscular Hemoglobin 29.7 PG (27.0-31.0) Mean Corpuscular Hemoglobin Concent 32.4 G/DL (32.0-36.0) Red Cell Distribution Width 15.9 % (11.6-14.8) H Platelet Count 299 K/UL (150-450) Mean Platelet Volume 4.0 FL (6.5-10.1) L Neutrophils (%) (Auto) 38.9 % (45.0-75.0) L Lymphocytes (%) (Auto) 51.5 % (20.0-45.0) H Monocytes (%) (Auto) 5.6 % (1.0-10.0) Eosinophils (%) (Auto) 3.1 % (0.0-3.0) H Basophils (%) (Auto) 0.9 % (0.0-2.0) Prothrombin Time 10.7 SEC (9.30-11.50) Prothromb Time International Ratio 1.0 (0.9-1.1) Activated Partial Thromboplast Time 25 SEC (23-33) Sodium Level 137 MMOL/L (136-145) Potassium Level 3.8 MMOL/L (3.5-5.1) Chloride Level 107 MMOL/L (98-107) Carbon Dioxide Level 19 MMOL/L (21-32) L Anion Gap 12 mmol/L (5-15) Blood Urea Nitrogen 48 mg/dL (7-18) H Creatinine 6.1 MG/DL (0.55-1.30) H Estimat Glomerular Filtration Rate mL/min (>60) Glucose Level 115 MG/DL (74-106) H Uric Acid 6.4 MG/DL (2.6-7.2) Calcium Level 9.5 MG/DL (8.5-10.1) Phosphorus Level 5.0 MG/DL (2.5-4.9) H Magnesium Level 2.2 MG/DL (1.8-2.4) Total Bilirubin 0.2 MG/DL (0.2-1.0) Aspartate Amino Transf (AST/SGOT) 25 U/L (15-37) Alanine Aminotransferase (ALT/SGPT) 22 U/L (12-78) Alkaline Phosphatase 65 U/L (46-116) Total Protein 6.3 G/DL (6.4-8.2) L Albumin 2.1 G/DL (3.4-5.0) L Globulin 4.2 g/dL Albumin/Globulin Ratio 0.5 (1.0-2.7) L Assessment Post-op Diagnosis large right hip abscess with necrotic non viable tissue. Plan Problems: (1) Abscess of right hip Assessment & Plan: 78F with abscess of right hip, large, deep. on exam mainly looks like cellulitis but once abscess drained significant fluid it was apparent that it was much deeper. proper care necessary and unfortunately unable to get in contact with family. called daughter without reply. abscess needs drainage, washout and proper care. s/p drainage, debridement, washout improving since will likely need feeding tube since note tolerating enough diet needs nutrition to heal this wound overall wound much improved -pending PEG placement -HD line placed -Nursing to do packing and dressing TID -IV abx -will follow with recs -thank you Camilo James Nov 20, 2018 14:08
--- NOTE | 2018-11-20 14:11 | Operative Note - PDOC ---
Operative Note Operative Note Pre-op Diagnosis: renal insufficiency requiring Hemodialysis Procedure: left femoral temporary hemodialysis catheter insertion Post-op Diagnosis: same Surgeon: Camilo James MD Anesthesia: local Specimen: none Complications: none Condition: stable Estimated Blood Loss: minimal Drains: other Implant(s) used?: No Indications for Procedure 78F currently admitted after large right leg wound infection / abscess. renal insufficiency requiring HD. consent obtained from son for temp HD line. line indicated and recommended. see notes for details Description of Procedure The patient was lying in the supine position. All persons involved were shielded with hairnets, facemasks and sterile gowns. With sterile-gloved hands the left femoral area was thoroughly sponged with chlorhexidine and allowed to dry. The area was draped with the large disposable sterile field provided in the kit. The skin and subcutaneous tissues superficial to the left femoral vein was anesthetized with 5 mL of 1% lidocaine. The femoral artery was palpated and avoided. A finder needle was advanced at a 45-degree angle toward the inguinal ligament until the syringe was seen to fill with blood. The needle was then held in place while the guide wire was advanced. The needle was then removed. A skin dilator was advanced over the guidewire and removed, then the temporary HD catheter was advanced over the guide wire into proper position. The guide wire was removed and discarded. The ports were aspirated which showed good blood return indicating proper position into the vein and then carefully flushed with normal saline. The catheter was stabilized and sutured to the skin with 2-0 silk at 2 anchor ports. A sterile bio-occlusive dressing was placed over the catheter, including the insertion site. The patient tolerated the procedure well. Camilo James Nov 20, 2018 14:11
[2018-11-20] MEDS ORDERED: Sterile Water Irrig 1000ml IRRIG ONE (16:48)
[2018-11-20] MEDS ORDERED: Tubing IV Secondary IV ONE (16:48)
--- NOTE | 2018-11-20 17:12 | General Progress Note ---
Assessment/Plan Status: stable, progressing Assessment/Plan: Assessment - dysphagia, NGT - renal failure - (R) hip infection - bed bound - d/w son ([phone] is his [place] but he is currently in [place]) over the phone - a number of family members are flying in Thursday from [place] to see patient and to make final level of care decision Recommendation - Continue NGT feeds - continue current level of care - Family to see patient Thursday and make decision re TF and HD Subjective Allergies: Coded Allergies: No Known Allergies (Unverified , 11/12/18) Subjective above noted tolerating TF non communicative d/w RN Objective Last 24 Hour Vital Signs Date Time Temp Pulse Resp B/P (MAP) Pulse Ox O2 Delivery O2 Flow Rate FiO2 11/20/18 16:00 97.5 56 17 107/56 (73) 96 11/20/18 14:30 96.1 58 15 117/56 (76) 99 11/20/18 13:00 97.0 62 16 148/74 (98) 99 11/20/18 12:00 98.6 61 12 162/72 (102) 99 11/20/18 10:46 62 152/82 11/20/18 09:00 Room Air 11/20/18 09:00 98.0 62 19 128/72 (90) 99 11/20/18 08:00 98.1 82 19 148/73 (98) 99 11/20/18 05:48 170/90 11/20/18 04:00 96.5 82 19 170/90 (116) 99 11/20/18 00:00 96.6 86 22 170/85 (113) 97 11/20/18 00:00 170/85 11/19/18 21:00 Room Air 11/19/18 20:00 96.6 59 19 134/61 (85) 96 11/19/18 17:55 145/66 Intake and Output 11/19/18 11/20/18 19:00 07:00 Intake Total 30 ml 660 ml Output Total 250 ml 850 ml Balance -220 ml -190 ml Free Water 400 ml Tube Feeding 30 ml 260 ml Output Urine Total 250 ml 850 ml # Bowel Movements 3 Laboratory Tests 11/20/18 05:00: White Blood Count 8.5, Red Blood Count 2.98L, Hemoglobin 8.8L, Hematocrit 27.3L , Mean Corpuscular Volume 92, Mean Corpuscular Hemoglobin 29.7, Mean Corpuscular Hemoglobin Concent 32.4, Red Cell Distribution Width 15.9H, Platelet Count 299, Mean Platelet Volume 4.0L, Neutrophils (%) (Auto) 38.9L, Lymphocytes (%) (Auto) 51.5H, Monocytes (%) (Auto) 5.6, Eosinophils (%) (Auto) 3.1H, Basophils (%) (Auto) 0.9, Prothrombin Time 10.7, Prothromb Time International Ratio 1.0, Activated Partial Thromboplast Time 25, Sodium Level 137, Potassium Level 3.8, Chloride Level 107, Carbon Dioxide Level 19L, Anion Gap 12, Blood Urea Nitrogen 48H, Creatinine 6.1H, Estimat Glomerular Filtration Rate , Glucose Level 115H, Uric Acid 6.4, Calcium Level 9.5, Phosphorus Level 5.0H, Magnesium Level 2.2, Total Bilirubin 0.2, Aspartate Amino Transf (AST/SGOT ) 25, Alanine Aminotransferase (ALT/SGPT) 22, Alkaline Phosphatase 65, Total Protein 6.3L, Albumin 2.1L, Globulin 4.2, Albumin/Globulin Ratio 0.5L Height (Feet): 5 Height (Inches): 2.00 Weight (Pounds): 86 Objective Thin woman NCAT Neck supple supple chest CTA RRR Abd Soft, NT, ND no edema Cristy Elizondo MD Nov 20, 2018 17:12
[2018-11-20] MEDS: LORazepam Inj 2mg/ml 1ml IV PRN (20:04)
[2018-11-21] VITALS (10 sets, daily range): BP systolic 137–174; BP diastolic 64–87
--- NOTE | 2018-11-21 00:15 | Progress Note ---
DATE: 11/18/2018 CARDIOLOGY PROGRESS NOTE SUBJECTIVE: The patient has a Marroquin catheter for urinary retention. Family members are considering hemodialysis option due to renal failure that has failed to improve. OBJECTIVE: VITAL SIGNS: Blood pressure 125/63, pulse 61, and respirations 20. LUNGS: Clear. CARDIAC: Regular. Normal S1, S2 with a fourth heart sound. ABDOMEN: Soft. EXTREMITIES: No edema. LABORATORY DATA: White count 6.3 and hemoglobin 7.9. Sodium 144, potassium 3.9, bicarbonate 16, BUN 42, creatinine 6.1. Albumin 2. Pro-natriuretic peptide is 15,000. IMPRESSION: 1. Worsening renal failure. 2. Severe protein-calorie malnutrition. 3. Metabolic acidosis. 4. Acute on chronic diastolic congestive heart failure. 5. Anemia, status post acute blood loss. Also anemia due to chronic kidney disease. 6. Hypertensive heart disease now with adequate blood pressure control. PLAN: 1. Await decision regarding hemodialysis 2. NG tube for nutrition. 3. Titrate antihypertensives with caution to avoid hypotension in this clinical setting. 4. Prognosis is poor. Abel Stubbs M.D. DR: BOOM JOB#: [id number] CC:
[2018-11-21] MEDS: NovoLOG Insulin Flexpen SUBQ SCH ×5 (06:25→23:57)
[2018-11-21] MEDS: HydrALAZINE 50mg tab ORAL SCH ×3 (06:25→13:42)
[2018-11-21 07:23] LABS: BASOPHILS % (AUTO) 0.7 % (0.0-2.0); EOSINOPHILS % (AUTO) 2.8 % (0.0-3.0); HEMATOCRIT 25.8 % (37.0-47.0); HEMOGLOBIN 8.4 G/DL (12.0-16.0); LYMPHOCYTES % (AUTO) 38.5 % (20.0-45.0); MEAN CORPUSCULAR VOLUME 92 FL (80-99); MONOCYTES % (AUTO) 4.6 % (1.0-10.0); NEUTROPHILS % (AUTO) 53.4 % (45.0-75.0); PLATELET COUNT 360 K/UL (150-450); RED CELL DISTRIBUTION WIDTH 17.1 % (11.6-14.8); WHITE BLOOD COUNT 9.6 K/UL (4.8-10.8)
[2018-11-21 07:35] LABS: ALANINE AMINOTRANSFERASE 30 U/L (12-78); ALBUMIN 2.3 G/DL (3.4-5.0); ALBUMIN/GLOBULIN RATIO 0.5 (1.0-2.7); ALKALINE PHOSPHATASE 116 U/L (46-116); ANION GAP 12 mmol/L (5-15); ASPARTATE AMINO TRANSFERASE 32 U/L (15-37); BILIRUBIN,TOTAL 0.2 MG/DL (0.2-1.0); BLOOD UREA NITROGEN 53 mg/dL (7-18); CALCIUM 9.2 MG/DL (8.5-10.1); CARBON DIOXIDE 20 MMOL/L (21-32); CHLORIDE 106 MMOL/L (98-107); PHOSPHORUS 4.9 MG/DL (2.5-4.9); POTASSIUM 3.5 MMOL/L (3.5-5.1); SODIUM 138 MMOL/L (136-145)
[2018-11-21] MEDS: Renvela 800mg Pkt NG SCH ×3 (08:05→17:27)
[2018-11-21] MEDS: LORazepam Inj 2mg/ml 1ml IV PRN ×3 (08:07→18:58)
[2018-11-21] MEDS: Heparin 5000 units/ml inj SUBQ SCH ×2 (08:08→21:59)
[2018-11-21] MEDS: Doxazosin 1mg Tab ORAL SCH (09:40)
--- NOTE | 2018-11-21 10:00 | Infectious Diseases Prog Note ---
Assessment/Plan Assessment/Plan IMPRESSION: 1. Abscess, right hip status post incision and drainage. 2. Acute on chronic renal failure. 3. Urinary retention. 4. Failure to thrive and cachexia. 5. Dementia with behavioral problem. 6. Hypertension. 7. ESRD RECOMMENDATIONS: We will follow up the cultures. Continue Doxycycline X 2 days Subjective ROS Limited/Unobtainable: Yes Constitutional: Denies: fever Cardiovascular: Reports: other - HD line was placed Neurologic: Reports: confusion, other - on restraint Allergies: Coded Allergies: No Known Allergies (Unverified , 11/12/18) Objective Vital Signs Last 24 Hour Vital Signs Date Time Temp Pulse Resp B/P (MAP) Pulse Ox O2 Delivery O2 Flow Rate FiO2 11/21/18 09:41 76 159/82 11/21/18 06:25 174/87 11/21/18 06:00 96.5 82 20 174/87 (116) 95 11/21/18 04:00 96.5 82 20 174/87 (116) 95 11/21/18 00:00 96.1 86 19 145/69 (94) 97 11/21/18 00:00 145/69 11/20/18 21:00 Room Air 11/20/18 20:00 96.5 69 19 152/68 (96) 96 11/20/18 18:11 138/75 11/20/18 16:00 97.5 56 17 107/56 (73) 96 11/20/18 14:30 96.1 58 15 117/56 (76) 99 11/20/18 13:00 97.0 62 16 148/74 (98) 99 11/20/18 12:00 98.6 61 12 162/72 (102) 99 11/20/18 10:46 62 152/82 Height (Feet): 5 Height (Inches): 2.00 Weight (Pounds): 86 General Appearance: cachetic HEENT: mucous membranes moist Respiratory/Chest: lungs clear Cardiovascular: normal rate, other - left femoral HD line Abdomen: soft, non tender, other - NG tube feeding Extremities: no edema Neurologic/Psychiatric: disoriented Musculoskeletal: atrophy Laboratory Tests Test 11/21/18 05:50 White Blood Count 9.6 K/UL (4.8-10.8) Red Blood Count 2.80 M/UL (4.20-5.40) L Hemoglobin 8.4 G/DL (12.0-16.0) L Hematocrit 25.8 % (37.0-47.0) L Mean Corpuscular Volume 92 FL (80-99) Mean Corpuscular Hemoglobin 29.9 PG (27.0-31.0) Mean Corpuscular Hemoglobin Concent 32.4 G/DL (32.0-36.0) Red Cell Distribution Width 17.1 % (11.6-14.8) H Platelet Count 360 K/UL (150-450) Mean Platelet Volume 4.6 FL (6.5-10.1) L Neutrophils (%) (Auto) 53.4 % (45.0-75.0) Lymphocytes (%) (Auto) 38.5 % (20.0-45.0) Monocytes (%) (Auto) 4.6 % (1.0-10.0) Eosinophils (%) (Auto) 2.8 % (0.0-3.0) Basophils (%) (Auto) 0.7 % (0.0-2.0) Sodium Level 138 MMOL/L (136-145) Potassium Level 3.5 MMOL/L (3.5-5.1) Chloride Level 106 MMOL/L (98-107) Carbon Dioxide Level 20 MMOL/L (21-32) L Anion Gap 12 mmol/L (5-15) Blood Urea Nitrogen 53 mg/dL (7-18) H Creatinine 6.0 MG/DL (0.55-1.30) H Estimat Glomerular Filtration Rate mL/min (>60) Glucose Level 165 MG/DL (74-106) H Calcium Level 9.2 MG/DL (8.5-10.1) Phosphorus Level 4.9 MG/DL (2.5-4.9) Magnesium Level 2.0 MG/DL (1.8-2.4) Total Bilirubin 0.2 MG/DL (0.2-1.0) Aspartate Amino Transf (AST/SGOT) 32 U/L (15-37) Alanine Aminotransferase (ALT/SGPT) 30 U/L (12-78) Alkaline Phosphatase 116 U/L (46-116) C-Reactive Protein, Quantitative 1.1 mg/dL (0.00-0.90) H Pro-B-Type Natriuretic Peptide 6870 pg/mL (0-125) H Total Protein 6.6 G/DL (6.4-8.2) Albumin 2.3 G/DL (3.4-5.0) L Globulin 4.3 g/dL Albumin/Globulin Ratio 0.5 (1.0-2.7) L Hepatitis B Surface Antigen Pending Current Medications Medications (Trade) Dose Ordered Sig/Javier Route PRN Reason Start Time Stop Time Status Last Admin Dose Admin Acetaminophen (Tylenol) 650 mg Q4H PRN ORAL Mild Pain/Temp > 100.5 11/12/18 20:00 12/12/18 19:59 11/14/18 18:39 Amlodipine Besylate (Norvasc) 10 mg DAILY ORAL 11/20/18 11:00 12/20/18 10:59 11/21/18 09:41 Dextrose 1,000 ml @ 40 mls/hr Q24H IV 11/18/18 10:43 12/18/18 10:42 11/19/18 01:33 Dextrose (Dextrose 50%) 25 ml Q30M PRN IV Hypoglycemia 11/18/18 16:00 12/18/18 15:59 Dextrose (Dextrose 50%) 50 ml Q30M PRN IV Hypoglycemia 11/18/18 16:00 12/18/18 15:59 Doxazosin Mesylate (Cardura) 2 mg DAILY ORAL 11/20/18 10:45 12/20/18 10:44 11/21/18 09:40 Doxycycline Monohydrate (Doxycycline Monohydrate) 100 mg EVERY 12 HOURS ORAL 11/19/18 21:30 11/23/18 23:59 11/21/18 08:06 Epoetin Thomas (Epoetin Thomas-EPBX(NON ESRD)) 3,000 unit THU-THU-THU SUBQ 11/15/18 21:00 12/15/18 20:59 11/19/18 21:00 Heparin Sodium (Porcine) (Heparin 5000 units/ml) 5,000 units EVERY 12 HOURS SUBQ 11/19/18 21:30 12/19/18 21:29 11/21/18 08:08 Hydralazine HCl (Apresoline) 50 mg EVERY 6 HOURS ORAL 11/19/18 13:34 12/19/18 13:33 11/21/18 06:25 Insulin Aspart (NovoLOG) EVERY 6 HOURS SUBQ 11/20/18 00:00 12/18/18 20:59 11/21/18 06:25 Lansoprazole (Prevacid) 30 mg BID NG 11/19/18 18:00 12/19/18 17:59 11/21/18 08:05 Lorazepam (Ativan 2mg/ml 1ml) 1 mg Q4H PRN IV For restlessness 11/19/18 23:45 11/26/18 23:44 11/21/18 08:07 Mirtazapine (Remeron) 15 mg BEDTIME ORAL 11/19/18 21:30 12/19/18 21:29 11/20/18 20:04 Ondansetron HCl (Zofran) 0.5 mg Q8H PRN IVP Nausea & Vomiting 11/12/18 20:00 12/12/18 19:59 Quetiapine Fumarate (SEROquel) 100 mg QHS ORAL 11/19/18 21:30 12/19/18 21:29 11/20/18 20:04 Sevelamer Carbonate (Renvela) 800 mg THREE TIMES A DAY NG 11/20/18 13:00 12/20/18 12:59 11/21/18 08:05 Warren Parks MD Nov 21, 2018 09:59
--- NOTE | 2018-11-21 11:37 | General Progress Note ---
Assessment/Plan Problem List: (1) Anemia due to acute blood loss ICD Codes: D62 - Acute posthemorrhagic anemia SNOMED: 002060889 (2) Dementia ICD Codes: F03.90 - Unspecified dementia without behavioral disturbance SNOMED: 04547613 (3) Renal insufficiency ICD Codes: N28.9 - Disorder of kidney and ureter, unspecified SNOMED: 695942367, 454662404 (4) Abscess of right hip ICD Codes: L02.415 - Cutaneous abscess of right lower limb SNOMED: 336914 Status: stable, progressing Assessment/Plan: cont current rx monitor h/h and labs may need transfusion epo/iron replacement abx per id HD per renal cont bailey for urinary retention cont ngt feeds family flying in to make decision about gt Subjective ROS Limited/Unobtainable: Yes Constitutional: Reports: malaise, weakness HEENT: Reports: no symptoms Cardiovascular: Reports: no symptoms Respiratory: Reports: no symptoms Gastrointestinal/Abdominal: Reports: difficulty swallowing, poor appetite, poor fluid intake Genitourinary: Reports: no symptoms Neurologic/Psychiatric: Reports: pre-existing deficit Endocrine: Reports: no symptoms Hematologic/Lymphatic: Reports: anemia Allergies: Coded Allergies: No Known Allergies (Unverified , 11/12/18) All Systems: reviewed and negative except above Subjective tolerating feeds. HD catheter placed. family declined HD last night. tolerating feeds Objective Last 24 Hour Vital Signs Date Time Temp Pulse Resp B/P (MAP) Pulse Ox O2 Delivery O2 Flow Rate FiO2 11/21/18 09:41 76 159/82 11/21/18 09:00 Room Air 11/21/18 08:00 97.1 76 20 159/82 (107) 95 11/21/18 06:25 174/87 11/21/18 06:00 96.5 82 20 174/87 (116) 95 11/21/18 04:00 96.5 82 20 174/87 (116) 95 11/21/18 00:00 96.1 86 19 145/69 (94) 97 11/21/18 00:00 145/69 11/20/18 21:00 Room Air 11/20/18 20:00 96.5 69 19 152/68 (96) 96 11/20/18 18:11 138/75 11/20/18 16:00 97.5 56 17 107/56 (73) 96 11/20/18 14:30 96.1 58 15 117/56 (76) 99 11/20/18 13:00 97.0 62 16 148/74 (98) 99 11/20/18 12:00 98.6 61 12 162/72 (102) 99 Intake and Output 11/20/18 11/21/18 19:00 07:00 Intake Total 880 ml 840 ml Output Total 500 ml 550 ml Balance 380 ml 290 ml Free Water 400 ml 400 ml Tube Feeding 480 ml 440 ml Output Urine Total 500 ml 550 ml # Bowel Movements 4 3 Laboratory Tests 11/21/18 05:50: White Blood Count 9.6, Red Blood Count 2.80L, Hemoglobin 8.4L, Hematocrit 25.8L , Mean Corpuscular Volume 92, Mean Corpuscular Hemoglobin 29.9, Mean Corpuscular Hemoglobin Concent 32.4, Red Cell Distribution Width 17.1H, Platelet Count 360, Mean Platelet Volume 4.6L, Neutrophils (%) (Auto) 53.4, Lymphocytes (%) (Auto) 38.5, Monocytes (%) (Auto) 4.6, Eosinophils (%) (Auto) 2.8, Basophils (%) (Auto) 0.7, Sodium Level 138, Potassium Level 3.5, Chloride Level 106, Carbon Dioxide Level 20L, Anion Gap 12, Blood Urea Nitrogen 53H, Creatinine 6.0H, Estimat Glomerular Filtration Rate , Glucose Level 165H, Calcium Level 9.2, Phosphorus Level 4.9, Magnesium Level 2.0, Total Bilirubin 0.2, Aspartate Amino Transf (AST/SGOT) 32, Alanine Aminotransferase (ALT/SGPT) 30, Alkaline Phosphatase 116, C-Reactive Protein, Quantitative 1.1H, Pro-B-Type Natriuretic Peptide 6870H, Total Protein 6.6, Albumin 2.3L, Globulin 4.3, Albumin/Globulin Ratio 0.5L, Hepatitis B Surface Antigen [Pending] Height (Feet): 5 Height (Inches): 2.00 Weight (Pounds): 86 Objective General Appearance: WD/WN, alert, confused. +NGT Neck: supple Cardiovascular: normal rate, regular rhythm Respiratory/Chest: chest wall non-tender, lungs clear, normal breath sounds Abdomen: normal bowel sounds, non tender, soft, no organomegaly Edema: no edema noted Arm (L), no edema noted Arm (R), no edema noted Leg (L), no edema noted Leg (R), no edema noted Pedal (L), no edema noted Pedal (R), no edema noted Generalized Neurologic: alert, disoriented Nate Beltran MD Nov 21, 2018 11:37
--- NOTE | 2018-11-21 12:06 | General Progress Note ---
Assessment/Plan Status: stable, progressing Assessment/Plan: Assessment - dysphagia, NGT - renal failure - (R) hip infection - bed bound - d/w son ([phone] [place] but he is currently in [place]) over the phone - a number of family members are flying in Thursday from [place] to see patient and to make final level of care decision Recommendation - Continue NGT feeds - continue current level of care - Family to see patient Thursday and make decision re TF and HD Subjective Allergies: Coded Allergies: No Known Allergies (Unverified , 11/12/18) Subjective above noted tolerating TF non communicative d/w RN Objective Last 24 Hour Vital Signs Date Time Temp Pulse Resp B/P (MAP) Pulse Ox O2 Delivery O2 Flow Rate FiO2 11/21/18 12:03 96.3 79 17 167/73 (104) 98 11/21/18 09:41 76 159/82 11/21/18 09:00 Room Air 11/21/18 08:00 97.1 76 20 159/82 (107) 95 11/21/18 06:25 174/87 11/21/18 06:00 96.5 82 20 174/87 (116) 95 11/21/18 04:00 96.5 82 20 174/87 (116) 95 11/21/18 00:00 96.1 86 19 145/69 (94) 97 11/21/18 00:00 145/69 11/20/18 21:00 Room Air 11/20/18 20:00 96.5 69 19 152/68 (96) 96 11/20/18 18:11 138/75 11/20/18 16:00 97.5 56 17 107/56 (73) 96 11/20/18 14:30 96.1 58 15 117/56 (76) 99 11/20/18 13:00 97.0 62 16 148/74 (98) 99 Intake and Output 11/20/18 11/21/18 19:00 07:00 Intake Total 880 ml 840 ml Output Total 500 ml 550 ml Balance 380 ml 290 ml Free Water 400 ml 400 ml Tube Feeding 480 ml 440 ml Output Urine Total 500 ml 550 ml # Bowel Movements 4 3 Laboratory Tests 11/21/18 05:50: White Blood Count 9.6, Red Blood Count 2.80L, Hemoglobin 8.4L, Hematocrit 25.8L , Mean Corpuscular Volume 92, Mean Corpuscular Hemoglobin 29.9, Mean Corpuscular Hemoglobin Concent 32.4, Red Cell Distribution Width 17.1H, Platelet Count 360, Mean Platelet Volume 4.6L, Neutrophils (%) (Auto) 53.4, Lymphocytes (%) (Auto) 38.5, Monocytes (%) (Auto) 4.6, Eosinophils (%) (Auto) 2.8, Basophils (%) (Auto) 0.7, Sodium Level 138, Potassium Level 3.5, Chloride Level 106, Carbon Dioxide Level 20L, Anion Gap 12, Blood Urea Nitrogen 53H, Creatinine 6.0H, Estimat Glomerular Filtration Rate , Glucose Level 165H, Calcium Level 9.2, Phosphorus Level 4.9, Magnesium Level 2.0, Total Bilirubin 0.2, Aspartate Amino Transf (AST/SGOT) 32, Alanine Aminotransferase (ALT/SGPT) 30, Alkaline Phosphatase 116, C-Reactive Protein, Quantitative 1.1H, Pro-B-Type Natriuretic Peptide 6870H, Total Protein 6.6, Albumin 2.3L, Globulin 4.3, Albumin/Globulin Ratio 0.5L, Hepatitis B Surface Antigen [Pending] Height (Feet): 5 Height (Inches): 2.00 Weight (Pounds): 86 Objective Thin woman NCAT Neck supple supple chest CTA RRR Abd Soft, NT, ND no edema Cristy Elizondo MD Nov 21, 2018 12:06
--- NOTE | 2018-11-21 14:43 | Nephrology Progress Note ---
Assessment/Plan Problem List: (1) Abscess of right hip (2) Renal failure (ARF), acute on chronic (3) Urinary retention (4) Diabetes mellitus (5) Failure to thrive Assessment Renal failure: - Acute , due to meds- Obstruction.... - Chronic: Due to underlying ?HTN / DM ... Urinary Retention in ANJEL HyperGlycemia / DM / Proteinuria Anemia Right hip abcess UTI . Plan dialysis 11/20 cancelled as family changed their mind patient have left femoral cath start Immudium for loose BM , check C dif monitor renal parameters bailey cath monitor I&O Keep BP and BS in check Avoid Nephrotoxics Antibiotics and surgical fu Urine studies Vanco level 24 on 11/16 has NGT , will start Nepro Subjective ROS Limited/Unobtainable: No Constitutional: Reports: malaise Objective Objective Last 24 Hour Vital Signs Date Time Temp Pulse Resp B/P (MAP) Pulse Ox O2 Delivery O2 Flow Rate FiO2 11/21/18 13:42 153/72 11/21/18 12:00 96.3 79 20 167/73 (104) 98 11/21/18 09:41 76 159/82 11/21/18 09:00 Room Air 11/21/18 08:00 97.1 76 20 159/82 (107) 95 11/21/18 06:25 174/87 11/21/18 06:00 96.5 82 20 174/87 (116) 95 11/21/18 04:00 96.5 82 20 174/87 (116) 95 11/21/18 00:00 96.1 86 19 145/69 (94) 97 11/21/18 00:00 145/69 11/20/18 21:00 Room Air 11/20/18 20:00 96.5 69 19 152/68 (96) 96 11/20/18 18:11 138/75 11/20/18 16:00 97.5 56 17 107/56 (73) 96 Intake and Output 11/20/18 11/21/18 19:00 07:00 Intake Total 880 ml 840 ml Output Total 500 ml 550 ml Balance 380 ml 290 ml Free Water 400 ml 400 ml Tube Feeding 480 ml 440 ml Output Urine Total 500 ml 550 ml # Bowel Movements 4 3 Laboratory Tests 11/21/18 05:50: White Blood Count 9.6, Red Blood Count 2.80L, Hemoglobin 8.4L, Hematocrit 25.8L , Mean Corpuscular Volume 92, Mean Corpuscular Hemoglobin 29.9, Mean Corpuscular Hemoglobin Concent 32.4, Red Cell Distribution Width 17.1H, Platelet Count 360, Mean Platelet Volume 4.6L, Neutrophils (%) (Auto) 53.4, Lymphocytes (%) (Auto) 38.5, Monocytes (%) (Auto) 4.6, Eosinophils (%) (Auto) 2.8, Basophils (%) (Auto) 0.7, Sodium Level 138, Potassium Level 3.5, Chloride Level 106, Carbon Dioxide Level 20L, Anion Gap 12, Blood Urea Nitrogen 53H, Creatinine 6.0H, Estimat Glomerular Filtration Rate , Glucose Level 165H, Calcium Level 9.2, Phosphorus Level 4.9, Magnesium Level 2.0, Total Bilirubin 0.2, Aspartate Amino Transf (AST/SGOT) 32, Alanine Aminotransferase (ALT/SGPT) 30, Alkaline Phosphatase 116, C-Reactive Protein, Quantitative 1.1H, Pro-B-Type Natriuretic Peptide 6870H, Total Protein 6.6, Albumin 2.3L, Globulin 4.3, Albumin/Globulin Ratio 0.5L, Hepatitis B Surface Antigen [Pending] Height (Feet): 5 Height (Inches): 2.00 Weight (Pounds): 86 General Appearance: no apparent distress EENT: other - NGT Cardiovascular: normal rate Respiratory/Chest: decreased breath sounds Abdomen: soft, distended Objective no change William Blackwood MD Nov 21, 2018 14:43
[2018-11-21] MEDS: Lactobacillus-GG tablet NG SCH (17:27)
[2018-11-21] MEDS: HydrALAZINE 50mg tab NG SCH ×2 (17:27→23:55)
--- NOTE | 2018-11-21 22:45 | Progress Note ---
DATE: 11/19/2018 CARDIOLOGY PROGRESS NOTE Late entry for 11/19/2018. SUBJECTIVE: Family members are considering dialysis and G-tube placement. The patient remains withdrawn with poor output. OBJECTIVE: VITAL SIGNS: Blood pressure 125/63, pulse 61, and respiratory rate 20. LUNGS: Diminished breath sounds. CARDIAC: Regular rhythm and rate. Normal S1 and S2 with a 1/6 systolic apical murmur. ABDOMEN: Soft. EXTREMITIES: With dependent edema. LABORATORY DATA: White count 6.3 and hemoglobin 7.9. Sodium 144, potassium 3.9, bicarbonate 16, BUN 42, and creatinine 6.1. Albumin 2.0. Labs from yesterday as noted above. IMPRESSION: 1. Progressive renal failure. 2. Dysphagia. 3. Severe protein-calorie malnutrition. 4. Hypertensive heart disease. 5. Acute on chronic diastolic congestive heart failure. 6. Urinary retention. PLAN: 1. Recheck lab studies. 2. Await family decision regarding hemodialysis and G-tube placement. 3. NG-tube nutrition for now. 4. Discussed with . . Abel Stubbs M.D. DR: CRISTINA JOB#: [id number] CC:
[2018-11-22] VITALS: BP 168/86
[2018-11-22] MEDS: LORazepam Inj 2mg/ml 1ml IV PRN ×2 (00:04→04:19)
--- NOTE | 2018-11-22 03:00 | Progress Note ---
DATE: 11/20/2018 CARDIOLOGY PROGRESS NOTE Late entry for 11/20/2018. SUBJECTIVE: The patient is seen and evaluated. Discussed with Dr. Blackwood last evening. Clonidine and beta-elissa were discontinued due to low blood pressure and bradycardias. Today blood pressure has improved, monitor reveals sinus and sinus bradycardia with no pauses. OBJECTIVE: VITAL SIGNS: Blood pressure 162/72, heart rate 61, respiratory rate 12. LUNGS: Clear. CARDIAC: Regular. Normal S1, S2 with a fourth heart sound. ABDOMEN: Soft. EXTREMITIES: No edema. IMPRESSION: 1. End-stage renal disease. 2. Hypertensive heart disease with labile blood pressure. 3. Urinary retention with obstructive uropathy. 4. Type 2 diabetes mellitus. PLAN: 1. Marroquin catheter. 2. Dialysis with ultrafiltration. 3. Titrate antihypertensives avoiding all drugs with nephrotoxic potential. 4. Titrate insulin coverage. 5. Nutritional support by NG tube. 6. P.r.n. antihypertensives for blood pressure spikes. 7. Avoid tight blood pressure control at this time. Khadijah Buorne JOB#: [id number] CC:
[2018-11-22 04:00] VITALS: BP 172/90
[2018-11-22] MEDS: HydrALAZINE 50mg tab NG SCH ×4 (05:18→23:55)
[2018-11-22] MEDS: NovoLOG Insulin Flexpen SUBQ SCH ×4 (05:19→23:57)
[2018-11-22 08:00] VITALS: BP 132/100
[2018-11-22] MEDS: Lactobacillus-GG tablet NG SCH ×3 (08:06→17:03)
[2018-11-22] MEDS: Heparin 5000 units/ml inj SUBQ SCH ×2 (08:06→20:26)
[2018-11-22] MEDS: Renvela 800mg Pkt NG SCH ×3 (08:06→17:03)
[2018-11-22] MEDS: Doxazosin 1mg Tab ORAL SCH (08:07)
--- NOTE | 2018-11-22 08:31 | General Progress Note ---
Assessment/Plan Problem List: (1) Anemia due to acute blood loss ICD Codes: D62 - Acute posthemorrhagic anemia SNOMED: 321609864 (2) Dementia ICD Codes: F03.90 - Unspecified dementia without behavioral disturbance SNOMED: 69820321 (3) Renal insufficiency ICD Codes: N28.9 - Disorder of kidney and ureter, unspecified SNOMED: 654311717, 640633676 (4) Abscess of right hip ICD Codes: L02.415 - Cutaneous abscess of right lower limb SNOMED: 117391 Status: stable, progressing Assessment/Plan: cont current rx monitor h/h and labs may need transfusion epo/iron replacement abx per id HD per renal cont bailey for urinary retention cont ngt feeds proceed with gt [place] Subjective ROS Limited/Unobtainable: Yes Constitutional: Reports: malaise, weakness HEENT: Reports: no symptoms Cardiovascular: Reports: no symptoms Respiratory: Reports: no symptoms Gastrointestinal/Abdominal: Reports: no symptoms Genitourinary: Reports: no symptoms Neurologic/Psychiatric: Reports: anxiety Endocrine: Reports: no symptoms Hematologic/Lymphatic: Reports: anemia Allergies: Coded Allergies: No Known Allergies (Unverified , 11/12/18) All Systems: reviewed and negative except above Subjective no events. tolerating feeds, family now wants gt placement Objective Last 24 Hour Vital Signs Date Time Temp Pulse Resp B/P (MAP) Pulse Ox O2 Delivery O2 Flow Rate FiO2 11/22/18 08:09 91 132/100 11/22/18 07:21 Room Air 11/22/18 05:18 172/90 11/22/18 04:00 97.6 93 19 172/90 (117) 98 11/22/18 00:00 97.0 90 19 168/86 (113) 95 11/21/18 23:55 148/73 11/21/18 21:00 Room Air 11/21/18 20:00 97.0 73 20 152/64 (93) 98 11/21/18 18:00 97.8 73 18 148/73 (98) 96 11/21/18 17:27 166/72 11/21/18 16:00 98.1 80 18 137/72 (93) 96 11/21/18 13:42 153/72 11/21/18 12:00 96.3 79 20 167/73 (104) 98 11/21/18 09:41 76 159/82 11/21/18 09:00 Room Air Intake and Output 11/21/18 11/22/18 18:59 06:59 Intake Total 860 ml Output Total 750 ml 650 ml Balance 110 ml -650 ml Free Water 400 ml Tube Feeding 460 ml Output Urine Total 750 ml 650 ml # Voids 2 # Bowel Movements 4 4 Height (Feet): 5 Height (Inches): 2.00 Weight (Pounds): 86 Objective General Appearance: WD/WN, alert, confused. +NGT Neck: supple Cardiovascular: normal rate, regular rhythm Respiratory/Chest: chest wall non-tender, lungs clear, normal breath sounds Abdomen: normal bowel sounds, non tender, soft, no organomegaly Edema: no edema noted Arm (L), no edema noted Arm (R), no edema noted Leg (L), no edema noted Leg (R), no edema noted Pedal (L), no edema noted Pedal (R), no edema noted Generalized Neurologic: alert, disoriented Nate Beltran MD Nov 22, 2018 08:31
--- NOTE | 2018-11-22 10:30 | Diagnostic Imaging Report ---
Indication: NG tube placement Comparison: None A single view chest radiograph was obtained. Findings: Limited x-ray of the left upper quadrant of the abdomen showing a nasogastric tube within the stomach. Both the proximal port and tip are within the stomach lumen. IMPRESSION: Satisfactory position of the NG tube
--- NOTE | 2018-11-22 10:54 | Infectious Diseases Prog Note ---
Assessment/Plan Assessment/Plan antibiotics : doxycycline po A 1. right hip abscess s/p i and d 2. renal failure 3. hypertension 4. dementia P 1. continue po doxycycline 1 more day 2. will follow up cultures Subjective Constitutional: Denies: fever, chills Respiratory: Denies: shortness of breath, dry cough Gastrointestinal/Abdominal: Denies: nausea, vomiting, diarrhea Musculoskeletal: Denies: pain Allergies: Coded Allergies: No Known Allergies (Unverified , 11/12/18) Objective Vital Signs Last 24 Hour Vital Signs Date Time Temp Pulse Resp B/P (MAP) Pulse Ox O2 Delivery O2 Flow Rate FiO2 11/22/18 08:09 91 132/100 11/22/18 08:00 98.6 91 21 132/100 (111) 95 11/22/18 07:21 Room Air 11/22/18 05:18 172/90 11/22/18 04:00 97.6 93 19 172/90 (117) 98 11/22/18 00:00 97.0 90 19 168/86 (113) 95 11/21/18 23:55 148/73 11/21/18 21:00 Room Air 11/21/18 20:00 97.0 73 20 152/64 (93) 98 11/21/18 18:00 97.8 73 18 148/73 (98) 96 11/21/18 17:27 166/72 11/21/18 16:00 98.1 80 18 137/72 (93) 96 11/21/18 13:42 153/72 11/21/18 12:00 96.3 79 20 167/73 (104) 98 Height (Feet): 5 Height (Inches): 2.00 Weight (Pounds): 86 Respiratory/Chest: lungs clear Cardiovascular: normal rate, regular rhythm, no gallop/murmur Abdomen: soft, non tender Extremities: no edema, other - left groin catheter Microbiology Date/Time Source Procedure Growth Status 11/21/18 20:10 Stool Clostridium difficile Toxin Assay - Final Complete Current Medications Medications (Trade) Dose Ordered Sig/Javier Route PRN Reason Start Time Stop Time Status Last Admin Dose Admin Acetaminophen (Tylenol) 650 mg Q4H PRN ORAL Mild Pain/Temp > 100.5 11/12/18 20:00 12/12/18 19:59 11/14/18 18:39 Amlodipine Besylate (Norvasc) 10 mg DAILY ORAL 11/20/18 11:00 12/20/18 10:59 11/22/18 08:09 Dextrose (Dextrose 50%) 25 ml Q30M PRN IV Hypoglycemia 11/18/18 16:00 12/18/18 15:59 Dextrose (Dextrose 50%) 50 ml Q30M PRN IV Hypoglycemia 11/18/18 16:00 12/18/18 15:59 Doxazosin Mesylate (Cardura) 2 mg DAILY ORAL 11/20/18 10:45 12/20/18 10:44 11/22/18 08:07 Doxycycline Monohydrate (Doxycycline Monohydrate) 100 mg EVERY 12 HOURS ORAL 11/19/18 21:30 11/23/18 23:59 11/22/18 08:06 Epoetin Thomas (Epoetin Thomas-EPBX(NON ESRD)) 3,000 unit THU-THU-THU SUBQ 11/15/18 21:00 12/15/18 20:59 11/19/18 21:00 Heparin Sodium (Porcine) (Heparin 5000 units/ml) 5,000 units EVERY 12 HOURS SUBQ 11/19/18 21:30 12/19/18 21:29 11/22/18 08:06 Hydralazine HCl (Apresoline) 50 mg EVERY 6 HOURS NG 11/21/18 18:00 12/19/18 13:33 11/22/18 05:18 Insulin Aspart (NovoLOG) EVERY 6 HOURS SUBQ 11/20/18 00:00 12/18/18 20:59 11/22/18 05:19 Lactobacillus Acidophilus (Culturelle) 1 tab THREE TIMES A DAY NG 11/21/18 18:00 12/21/18 17:59 11/22/18 08:06 Lansoprazole (Prevacid) 30 mg BID NG 11/19/18 18:00 12/19/18 17:59 11/22/18 08:06 Loperamide HCl (Imodium) 2 mg Q6H PRN NG Diarrhea 11/21/18 14:45 12/21/18 14:44 Lorazepam (Ativan 2mg/ml 1ml) 1 mg Q4H PRN IV For restlessness 11/19/18 23:45 11/26/18 23:44 11/22/18 04:19 Mirtazapine (Remeron) 15 mg BEDTIME ORAL 11/19/18 21:30 12/19/18 21:29 11/21/18 21:58 Ondansetron HCl (Zofran) 0.5 mg Q8H PRN IVP Nausea & Vomiting 11/12/18 20:00 12/12/18 19:59 Quetiapine Fumarate (SEROquel) 100 mg QHS ORAL 11/19/18 21:30 12/19/18 21:29 11/21/18 21:58 Sevelamer Carbonate (Renvela) 800 mg THREE TIMES A DAY NG 11/20/18 13:00 12/20/18 12:59 11/22/18 08:06 Melissa Solares MD Nov 22, 2018 10:54
[2018-11-22 12:00] VITALS: BP 144/66
--- NOTE | 2018-11-22 12:02 | Nephrology Progress Note ---
Assessment/Plan Problem List: (1) Abscess of right hip (2) Renal failure (ARF), acute on chronic (3) Urinary retention (4) Diabetes mellitus (5) Failure to thrive Assessment Renal failure: - Acute , due to meds- Obstruction.... - Chronic: Due to underlying ?HTN / DM ... Urinary Retention in ANJEL HyperGlycemia / DM / Proteinuria Anemia Right hip abcess UTI . Plan dialysis 11/20 cancelled as family changed their mind patient have left femoral cath start Imodium for loose BM , check C dif monitor renal parameters bailey cath monitor I&O Keep BP and BS in check Avoid Nephrotoxics Antibiotics and surgical fu Urine studies Vanco level 24 on 11/16 has NGT , will start Nepro Subjective ROS Limited/Unobtainable: No Constitutional: Reports: malaise Objective Objective Last 24 Hour Vital Signs Date Time Temp Pulse Resp B/P (MAP) Pulse Ox O2 Delivery O2 Flow Rate FiO2 11/22/18 11:38 144/66 11/22/18 08:09 91 132/100 11/22/18 08:00 98.6 91 21 132/100 (111) 95 11/22/18 07:21 Room Air 11/22/18 05:18 172/90 11/22/18 04:00 97.6 93 19 172/90 (117) 98 11/22/18 00:00 97.0 90 19 168/86 (113) 95 11/21/18 23:55 148/73 11/21/18 21:00 Room Air 11/21/18 20:00 97.0 73 20 152/64 (93) 98 11/21/18 18:00 97.8 73 18 148/73 (98) 96 11/21/18 17:27 166/72 11/21/18 16:00 98.1 80 18 137/72 (93) 96 11/21/18 13:42 153/72 Intake and Output 11/21/18 11/22/18 18:59 06:59 Intake Total 860 ml Output Total 750 ml 650 ml Balance 110 ml -650 ml Free Water 400 ml Tube Feeding 460 ml Output Urine Total 750 ml 650 ml # Voids 2 # Bowel Movements 4 4 Height (Feet): 5 Height (Inches): 2.00 Weight (Pounds): 86 General Appearance: no apparent distress Cardiovascular: normal rate Respiratory/Chest: decreased breath sounds Abdomen: soft Objective no change William Blackwood MD Nov 22, 2018 12:02
--- NOTE | 2018-11-22 12:06 | Diagnostic Imaging Report ---
Indication: NG tube Comparison: 11/18/2018 Single view of the abdomen obtained Findings: Lung volumes are low. Aorta is calcified. Bones are osteopenic. NG tube is in good position with both the proximal port and tip well within the stomach lumen. IMPRESSION: NG tube in good position
[2018-11-22 16:00] VITALS: BP 129/52
[2018-11-22 20:00] VITALS: BP 149/64
[2018-11-22] MEDS: Epoetin Alfa-EPBX (NON ESRD) 3000 units/ml vial SUBQ SCH (20:28)
--- NOTE | 2018-11-22 22:19 | General Progress Note ---
Assessment/Plan Status: stable, progressing Assessment/Plan: Assessment - dysphagia, NGT - renal failure - (R) hip infection - bed bound - d/w son ([phone] is his [place] number but he is currently in [place]) over the phone - a number of family members are flying in Thursday from [place] to see patient and to make final level of care decision Recommendation - Continue NGT feeds - continue current level of care - Family to see patient Thursday and make decision re TF and HD Subjective Allergies: Coded Allergies: No Known Allergies (Unverified , 11/12/18) Subjective above noted tolerating TF non communicative calm and comfortable d/w RN At one point in the day appeared agitated d/w son and daughter, who were concerned about patient being in pain advised that, per medical staff services manager, patient appears calm and comfortable majority of times Objective Last 24 Hour Vital Signs Date Time Temp Pulse Resp B/P (MAP) Pulse Ox O2 Delivery O2 Flow Rate FiO2 11/22/18 21:00 Room Air 11/22/18 20:00 97.4 74 16 149/64 (92) 100 11/22/18 17:03 144/66 11/22/18 16:00 98.6 70 18 129/52 (77) 96 11/22/18 12:00 98.6 76 20 144/66 (92) 96 11/22/18 11:38 144/66 11/22/18 08:09 91 132/100 11/22/18 08:00 98.6 91 21 132/100 (111) 95 11/22/18 07:21 Room Air 11/22/18 05:18 172/90 11/22/18 04:00 97.6 93 19 172/90 (117) 98 11/22/18 00:00 97.0 90 19 168/86 (113) 95 11/21/18 23:55 148/73 Intake and Output 11/21/18 11/22/18 18:59 06:59 Intake Total 860 ml Output Total 750 ml 650 ml Balance 110 ml -650 ml Free Water 400 ml Tube Feeding 460 ml Output Urine Total 750 ml 650 ml # Voids 2 # Bowel Movements 4 4 Height (Feet): 5 Height (Inches): 2.00 Weight (Pounds): 86 Objective Thin woman NCAT Neck supple supple chest CTA RRR Abd Soft, NT, ND no edema Cristy Elizondo MD Nov 22, 2018 22:19
--- NOTE | 2018-11-22 22:49 | Surgery Progress Note ---
Surgery Progress Note Subjective Procedure Performed left femoral temporary hemodialysis catheter insertion Additional Comments dialysis cancelled as family changed their mind. labs worsening. exam stable. wound dressings being changed. awaiting family decision on goals of care Objective Last 24 Hour Vital Signs Date Time Temp Pulse Resp B/P (MAP) Pulse Ox O2 Delivery O2 Flow Rate FiO2 11/22/18 21:00 Room Air 11/22/18 20:00 97.4 74 16 149/64 (92) 100 11/22/18 17:03 144/66 11/22/18 16:00 98.6 70 18 129/52 (77) 96 11/22/18 12:00 98.6 76 20 144/66 (92) 96 11/22/18 11:38 144/66 11/22/18 08:09 91 132/100 11/22/18 08:00 98.6 91 21 132/100 (111) 95 11/22/18 07:21 Room Air 11/22/18 05:18 172/90 11/22/18 04:00 97.6 93 19 172/90 (117) 98 11/22/18 00:00 97.0 90 19 168/86 (113) 95 11/21/18 23:55 148/73 I&O Intake and Output 11/21/18 11/22/18 19:00 07:00 Intake Total 820 ml Output Total 750 ml 650 ml Balance 70 ml -650 ml Free Water 400 ml Tube Feeding 420 ml Output Urine Total 750 ml 650 ml # Voids 2 # Bowel Movements 4 4 Dressing: saturated Wound: other Drains: other Cardiovascular: RSR Respiratory: decreased breath sounds Abdomen: soft, present bowel sounds, non-distended Extremities: edema, no cyanosis Assessment Post-op Diagnosis same Plan Problems: (1) Abscess of right hip Assessment & Plan: 78F with abscess of right hip, large, deep. on exam mainly looks like cellulitis but once abscess drained significant fluid it was apparent that it was much deeper. proper care necessary and unfortunately unable to get in contact with family. called daughter without reply. abscess needs drainage, washout and proper care. s/p drainage, debridement, washout improving since will likely need feeding tube since note tolerating enough diet needs nutrition to heal this wound overall wound much improved -pending PEG placement - family decision -HD line placed - family held on HD -Nursing to do packing and dressing TID -IV abx -will follow with recs -thank you Camilo James Nov 22, 2018 22:49
[2018-11-23] VITALS: BP 124/66
--- NOTE | 2018-11-23 03:15 | Progress Note ---
DATE: 11/22/2018 CARDIOLOGY PROGRESS NOTE SUBJECTIVE: Tolerating feeding by NG-tube. Permanent G-tube planned. OBJECTIVE: VITAL SIGNS: Blood pressure 132/100 to 172/90, heart rate 90, respiratory rate 19, and afebrile. LUNGS: Diminished breath sounds. HEART: Regular rhythm and rate. Normal S1, S2 with a fourth heart sound. ABDOMEN: Soft. EXTREMITIES: Trace edema. Dialysis catheter site clean and dry without bleeding. LABORATORY DATA: Stool for C. diff is negative. IMPRESSION: 1. End-stage renal disease. 2. Severe protein-calorie malnutrition. 3. Acute on chronic diastolic congestive heart failure. 4. Cerebrovascular disease with dementia. PLAN: 1. Await G-tube placement. 2. Pain control. 3. Titrate antihypertensives. 4. Final decision regarding hemodialysis and ultrafiltration per family members. Abel Stubbs M.D. DR: ALICIA JOB#: [id number] CC:
[2018-11-23] MEDS: LORazepam Inj 2mg/ml 1ml IV PRN ×4 (03:35→21:30)
[2018-11-23 04:00] VITALS: BP 120/62
[2018-11-23] MEDS: HydrALAZINE 50mg tab NG SCH ×3 (06:00→17:21)
[2018-11-23] MEDS: NovoLOG Insulin Flexpen SUBQ SCH ×3 (06:00→18:26)
[2018-11-23 08:00] VITALS: BP 138/67
--- NOTE | 2018-11-23 08:34 | General Progress Note ---
Assessment/Plan Problem List: (1) Anemia due to acute blood loss ICD Codes: D62 - Acute posthemorrhagic anemia SNOMED: 375800324 (2) Dementia ICD Codes: F03.90 - Unspecified dementia without behavioral disturbance SNOMED: 34480314 (3) Renal insufficiency ICD Codes: N28.9 - Disorder of kidney and ureter, unspecified SNOMED: 045256358, 583308383 (4) Abscess of right hip ICD Codes: L02.415 - Cutaneous abscess of right lower limb SNOMED: 695886 Status: stable, progressing Assessment/Plan: cont current rx monitor h/h and labs may need transfusion epo/iron replacement abx per id cont bailey for urinary retention cont ngt feeds proceed with gt [place] Subjective ROS Limited/Unobtainable: No Constitutional: Reports: malaise, weakness HEENT: Reports: no symptoms Cardiovascular: Reports: no symptoms Respiratory: Reports: no symptoms Gastrointestinal/Abdominal: Reports: no symptoms Genitourinary: Reports: no symptoms Neurologic/Psychiatric: Reports: no symptoms Endocrine: Reports: no symptoms Hematologic/Lymphatic: Reports: no symptoms Allergies: Coded Allergies: No Known Allergies (Unverified , 11/12/18) All Systems: reviewed and negative except above Subjective no events. tolerating feeds, family now wants gt placement pt pulled out HD catheter but family is refusing. Objective Last 24 Hour Vital Signs Date Time Temp Pulse Resp B/P (MAP) Pulse Ox O2 Delivery O2 Flow Rate FiO2 11/23/18 08:00 97.7 76 16 138/67 (90) 96 11/23/18 06:00 120/62 11/23/18 04:00 98.0 90 18 120/62 (81) 97 11/23/18 00:00 97.9 99 18 124/66 (85) 96 11/22/18 23:55 136/64 11/22/18 21:00 Room Air 11/22/18 20:00 97.4 74 16 149/64 (92) 100 11/22/18 17:03 144/66 11/22/18 16:00 98.6 70 18 129/52 (77) 96 11/22/18 12:00 98.6 76 20 144/66 (92) 96 11/22/18 11:38 144/66 Intake and Output 11/22/18 11/23/18 18:59 06:59 Intake Total 730 ml 90 ml Output Total 550 ml 300 ml Balance 180 ml -210 ml Free Water 400 ml Tube Feeding 330 ml 90 ml Output Urine Total 550 ml 300 ml # Bowel Movements 2 Height (Feet): 5 Height (Inches): 2.00 Weight (Pounds): 86 Objective General Appearance: WD/WN, alert, confused. +NGT Neck: supple Cardiovascular: normal rate, regular rhythm Respiratory/Chest: chest wall non-tender, lungs clear, normal breath sounds Abdomen: normal bowel sounds, non tender, soft, no organomegaly Edema: no edema noted Arm (L), no edema noted Arm (R), no edema noted Leg (L), no edema noted Leg (R), no edema noted Pedal (L), no edema noted Pedal (R), no edema noted Generalized Neurologic: alert, disoriented Nate Beltran MD Nov 23, 2018 08:34
[2018-11-23] MEDS: Lactobacillus-GG tablet NG SCH ×3 (09:00→17:22)
[2018-11-23] MEDS: Doxazosin 1mg Tab ORAL SCH (09:00)
[2018-11-23] MEDS: Renvela 800mg Pkt NG SCH ×3 (09:00→17:22)
--- NOTE | 2018-11-23 11:32 | Diagnostic Imaging Report ---
Indication: NG tube Comparison: None Single view of the abdomen obtained Findings: NG tube is in good position with the proximal port and tip both well within the stomach. IMPRESSION: NG tube in good position
[2018-11-23] MEDS: Heparin 5000 units/ml inj SUBQ SCH ×2 (11:38→20:35)
[2018-11-23 12:00] VITALS: BP 138/71
--- NOTE | 2018-11-23 13:51 | Infectious Diseases Prog Note ---
Assessment/Plan Assessment/Plan IMPRESSION: 1. Abscess, right hip status post incision and drainage. 2. Acute on chronic renal failure. 3. Urinary retention. 4. Failure to thrive and cachexia. 5. Dementia with behavioral problem. 6. Hypertension. 7. ESRD RECOMMENDATIONS: We will follow up the cultures. Continue Doxycycline until tonight Case was D/W patient's son Subjective ROS Limited/Unobtainable: Yes Neurologic: Reports: confusion, other - on restraint Allergies: Coded Allergies: No Known Allergies (Unverified , 11/12/18) Objective Vital Signs Last 24 Hour Vital Signs Date Time Temp Pulse Resp B/P (MAP) Pulse Ox O2 Delivery O2 Flow Rate FiO2 11/23/18 12:27 138/71 11/23/18 12:00 98.3 80 16 138/71 (93) 97 11/23/18 09:00 Room Air 11/23/18 08:00 97.7 76 16 138/67 (90) 96 11/23/18 06:00 120/62 11/23/18 04:00 98.0 90 18 120/62 (81) 97 11/23/18 00:00 97.9 99 18 124/66 (85) 96 11/22/18 23:55 136/64 11/22/18 21:00 Room Air 11/22/18 20:00 97.4 74 16 149/64 (92) 100 11/22/18 17:03 144/66 11/22/18 16:00 98.6 70 18 129/52 (77) 96 Height (Feet): 5 Height (Inches): 2.00 Weight (Pounds): 86 General Appearance: cachetic HEENT: mucous membranes moist Respiratory/Chest: lungs clear Cardiovascular: normal rate Abdomen: soft, non tender, other - NG tube Extremities: no edema Skin: ulcers, other - surgial site Neurologic/Psychiatric: disoriented, aphasia Microbiology Date/Time Source Procedure Growth Status 11/21/18 20:10 Stool Clostridium difficile Toxin Assay - Final Complete Current Medications Medications (Trade) Dose Ordered Sig/Javier Route PRN Reason Start Time Stop Time Status Last Admin Dose Admin Acetaminophen (Tylenol) 650 mg Q4H PRN ORAL Mild Pain/Temp > 100.5 11/12/18 20:00 12/12/18 19:59 11/14/18 18:39 Acetaminophen/ Hydrocodone Bitart ([place] 10/325) 1 tab Q4H PRN ORAL PAIN 4-10 11/23/18 08:45 11/30/18 08:44 Amlodipine Besylate (Norvasc) 10 mg DAILY ORAL 11/20/18 11:00 12/20/18 10:59 11/22/18 08:09 Dextrose (Dextrose 50%) 25 ml Q30M PRN IV Hypoglycemia 11/18/18 16:00 12/18/18 15:59 Dextrose (Dextrose 50%) 50 ml Q30M PRN IV Hypoglycemia 11/18/18 16:00 12/18/18 15:59 Doxazosin Mesylate (Cardura) 2 mg DAILY ORAL 11/20/18 10:45 12/20/18 10:44 11/22/18 08:07 Doxycycline Monohydrate (Doxycycline Monohydrate) 100 mg EVERY 12 HOURS ORAL 11/19/18 21:30 11/23/18 23:59 11/23/18 12:27 Epoetin Thomas (Epoetin Thomas-EPBX(NON ESRD)) 3,000 unit THU-THU-THU SUBQ 11/15/18 21:00 12/15/18 20:59 11/22/18 20:28 Heparin Sodium (Porcine) (Heparin 5000 units/ml) 5,000 units EVERY 12 HOURS SUBQ 11/19/18 21:30 12/19/18 21:29 11/23/18 11:38 Hydralazine HCl (Apresoline) 50 mg EVERY 6 HOURS NG 11/21/18 18:00 12/19/18 13:33 11/23/18 12:27 Insulin Aspart (NovoLOG) EVERY 6 HOURS SUBQ 11/20/18 00:00 12/18/18 20:59 11/22/18 23:57 Lactobacillus Acidophilus (Culturelle) 1 tab THREE TIMES A DAY NG 11/21/18 18:00 12/21/18 17:59 11/23/18 12:27 Lansoprazole (Prevacid) 30 mg BID NG 11/19/18 18:00 12/19/18 17:59 11/22/18 17:03 Loperamide HCl (Imodium) 2 mg Q6H PRN NG Diarrhea 11/21/18 14:45 12/21/18 14:44 Lorazepam (Ativan 2mg/ml 1ml) 1 mg Q4H PRN IV For restlessness 11/19/18 23:45 11/26/18 23:44 11/23/18 12:27 Mirtazapine (Remeron) 15 mg BEDTIME ORAL 11/19/18 21:30 12/19/18 21:29 11/22/18 20:27 Ondansetron HCl (Zofran) 0.5 mg Q8H PRN IVP Nausea & Vomiting 11/12/18 20:00 12/12/18 19:59 Quetiapine Fumarate (SEROquel) 100 mg QHS ORAL 11/19/18 21:30 12/19/18 21:29 11/22/18 20:27 Sevelamer Carbonate (Renvela) 800 mg THREE TIMES A DAY NG 11/20/18 13:00 12/20/18 12:59 11/23/18 12:26 Warren Parks MD Nov 23, 2018 13:51
--- NOTE | 2018-11-23 13:58 | Nephrology Progress Note ---
Assessment/Plan Problem List: (1) Abscess of right hip (2) Renal failure (ARF), acute on chronic (3) Urinary retention (4) Diabetes mellitus (5) Failure to thrive Assessment Renal failure: - Acute , due to meds- Obstruction.... - Chronic: Due to underlying ?HTN / DM ... Urinary Retention in ANJEL HyperGlycemia / DM / Proteinuria Anemia Right hip abcess UTI . Plan Patient pulled out her femoral cath ! dialysis 11/20 cancelled as family changed their mind patient have left femoral cath start Imodium for loose BM , check C dif monitor renal parameters bailey cath monitor I&O Keep BP and BS in check Avoid Nephrotoxics Antibiotics and surgical fu Urine studies Vanco level 24 on 11/16 has NGT , will start Nepro Subjective ROS Limited/Unobtainable: Yes Objective Objective Last 24 Hour Vital Signs Date Time Temp Pulse Resp B/P (MAP) Pulse Ox O2 Delivery O2 Flow Rate FiO2 11/23/18 12:27 138/71 11/23/18 12:00 98.3 80 16 138/71 (93) 97 11/23/18 09:00 Room Air 11/23/18 08:00 97.7 76 16 138/67 (90) 96 11/23/18 06:00 120/62 11/23/18 04:00 98.0 90 18 120/62 (81) 97 11/23/18 00:00 97.9 99 18 124/66 (85) 96 11/22/18 23:55 136/64 11/22/18 21:00 Room Air 11/22/18 20:00 97.4 74 16 149/64 (92) 100 11/22/18 17:03 144/66 11/22/18 16:00 98.6 70 18 129/52 (77) 96 Intake and Output 11/22/18 11/23/18 18:59 06:59 Intake Total 730 ml 90 ml Output Total 550 ml 300 ml Balance 180 ml -210 ml Free Water 400 ml Tube Feeding 330 ml 90 ml Output Urine Total 550 ml 300 ml # Bowel Movements 2 Height (Feet): 5 Height (Inches): 2.00 Weight (Pounds): 86 General Appearance: no apparent distress, lethargic Cardiovascular: other - variable rate Respiratory/Chest: decreased breath sounds Objective no change William Blackwood MD Nov 23, 2018 13:58
--- NOTE | 2018-11-23 14:14 | Surgery Progress Note ---
Surgery Progress Note Subjective Procedure Performed left femoral temporary hemodialysis catheter insertion Additional Comments pull out femoral HD line last night. otherwise unchanged. labs noted wound stable Objective Last 24 Hour Vital Signs Date Time Temp Pulse Resp B/P (MAP) Pulse Ox O2 Delivery O2 Flow Rate FiO2 11/23/18 12:27 138/71 11/23/18 12:00 98.3 80 16 138/71 (93) 97 11/23/18 09:00 Room Air 11/23/18 08:00 97.7 76 16 138/67 (90) 96 11/23/18 06:00 120/62 11/23/18 04:00 98.0 90 18 120/62 (81) 97 11/23/18 00:00 97.9 99 18 124/66 (85) 96 11/22/18 23:55 136/64 11/22/18 21:00 Room Air 11/22/18 20:00 97.4 74 16 149/64 (92) 100 11/22/18 17:03 144/66 11/22/18 16:00 98.6 70 18 129/52 (77) 96 I&O Intake and Output 11/22/18 11/23/18 18:59 06:59 Intake Total 730 ml 90 ml Output Total 550 ml 300 ml Balance 180 ml -210 ml Free Water 400 ml Tube Feeding 330 ml 90 ml Output Urine Total 550 ml 300 ml # Bowel Movements 2 Dressing: saturated Wound: clean, other Drains: other Cardiovascular: RSR Respiratory: clear, decreased breath sounds Abdomen: soft, non-tender, present bowel sounds Extremities: edema, tenderness, no cyanosis Assessment Post-op Diagnosis same Plan Problems: (1) Abscess of right hip Assessment & Plan: 78F with abscess of right hip, large, deep. on exam mainly looks like cellulitis but once abscess drained significant fluid it was apparent that it was much deeper. proper care necessary and unfortunately unable to get in contact with family. called daughter without reply. abscess needs drainage, washout and proper care. s/p drainage, debridement, washout improving since will likely need feeding tube since note tolerating enough diet needs nutrition to heal this wound overall wound much improved -pending PEG placement - family decision -HD line placed - family held on HD - patient removed HD line -Nursing to do packing and dressing TID -IV abx -will follow with recs -thank you Camilo James 11, 2019 14:14
[2018-11-23 16:00] VITALS: BP 135/68
--- NOTE | 2018-11-23 17:49 | General Progress Note ---
Assessment/Plan Status: stable, progressing Assessment/Plan: Assessment - dysphagia, NGT - renal failure - (R) hip infection - bed bound Recommendation - Continue NGT feeds - continue current level of care - Family to make decision re TF and HD Subjective Allergies: Coded Allergies: No Known Allergies (Unverified , 11/12/18) Subjective above noted tolerating TF non communicative calm and comfortable d/w son - just arrived to [place] he will d/w family members re ? PEG Objective Last 24 Hour Vital Signs Date Time Temp Pulse Resp B/P (MAP) Pulse Ox O2 Delivery O2 Flow Rate FiO2 11/23/18 17:21 142/64 11/23/18 16:00 97.3 76 16 135/68 (90) 97 11/23/18 12:27 138/71 11/23/18 12:00 98.3 80 16 138/71 (93) 97 11/23/18 09:00 Room Air 11/23/18 08:00 97.7 76 16 138/67 (90) 96 11/23/18 06:00 120/62 11/23/18 04:00 98.0 90 18 120/62 (81) 97 11/23/18 00:00 97.9 99 18 124/66 (85) 96 11/22/18 23:55 136/64 11/22/18 21:00 Room Air 11/22/18 20:00 97.4 74 16 149/64 (92) 100 Intake and Output 11/22/18 11/23/18 19:00 07:00 Intake Total 760 ml 60 ml Output Total 550 ml 300 ml Balance 210 ml -240 ml Free Water 400 ml Tube Feeding 360 ml 60 ml Output Urine Total 550 ml 300 ml # Bowel Movements 2 Height (Feet): 5 Height (Inches): 2.00 Weight (Pounds): 86 Objective Thin woman NCAT Neck supple supple chest CTA RRR Abd Soft, NT, ND no edema Cristy Elizondo MD Nov 23, 2018 17:49
[2018-11-23 20:00] VITALS: BP 150/73
[2018-11-23] MEDS: DiphenhydrAMINE 50mg/ml Inj IVP PRN (20:42)
[2018-11-24] VITALS: BP 184/96
[2018-11-24] MEDS: HydrALAZINE 50mg tab NG SCH ×5 (00:30→23:56)
[2018-11-24] MEDS: NovoLOG Insulin Flexpen SUBQ SCH ×5 (00:36→23:58)
[2018-11-24] MEDS: HYDROcodone/Acetamin 10/325 tab ORAL PRN ×2 (00:40→06:20)
--- NOTE | 2018-11-24 03:45 | Progress Note ---
DATE: 11/23/2018 SUBJECTIVE: The patient pulled out hemodialysis catheter. Family members have decided not to pursue dialysis at this time. The patient has an NG-tube for nutrition. Permanent G-tube is planned. OBJECTIVE: VITAL SIGNS: Blood pressure 138/67, pulse 76, and respirations 16. LUNGS: Clear. CARDIAC: Regular. Positive S4. ABDOMEN: Soft. EXTREMITIES: Trace edema. IMPRESSION: 1. Chronic kidney disease stage 5. 2. Severe protein-calorie malnutrition. 3. Hypertensive heart disease. 4. Acute on chronic diastolic congestive heart failure. 5. Cerebrovascular disease with dementia. PLAN: 1. G-tube placement for [facility] nutrition. 2. Titrate antihypertensive regimen. 3. May have to consider diuretics in the future if fluid mobilization is poor. Abel Stubbs M.D. DR: ALCIIA JOB#: [id number] CC:
--- NOTE | 2018-11-24 03:45 | Progress Note ---
DATE: 11/21/2018 CARDIOLOGY PROGRESS NOTE Late entry. SUBJECTIVE: Family members have declined dialysis. Catheter had already been placed. OBJECTIVE: VITAL SIGNS: Blood pressure is labile up to 174/87 this morning, subsequently 159/82 with heart rate 76 and respiratory rate 20. LUNGS: Diminished breath sounds. CARDIAC: Regular rhythm and rate. Normal S1, S2 with a fourth heart sound and a 1/6 systolic murmur at apex. EXTREMITIES: A 1+ edema. IMPRESSION: 1. Hypertensive heart disease. 2. Labile hypertension. 3. Acute on chronic diastolic congestive heart failure. 4. Chronic kidney disease stage 5. 5. Severe protein-calorie malnutrition. PLAN: 1. Await family decision regarding dialysis and ultrafiltration. 2. Titrate antihypertensives for better blood pressure control. 3. Nutrition by NG-tube at this time. 4. Prognosis poor. Abel Stubbs M.D. DR: ALICIA JOB#: [id number] CC:
[2018-11-24 04:00] VITALS: BP 149/82
[2018-11-24 08:00] VITALS: BP 179/72
[2018-11-24] MEDS: Renvela 800mg Pkt NG SCH ×3 (09:17→18:15)
[2018-11-24] MEDS: Doxazosin 1mg Tab ORAL SCH (09:17)
[2018-11-24] MEDS: LORazepam Inj 2mg/ml 1ml IV PRN ×2 (09:18→14:21)
[2018-11-24] MEDS: Lactobacillus-GG tablet NG SCH ×3 (09:18→18:15)
[2018-11-24] MEDS: Heparin 5000 units/ml inj SUBQ SCH ×2 (09:54→21:49)
--- NOTE | 2018-11-24 10:57 | Infectious Diseases Prog Note ---
Assessment/Plan Assessment/Plan IMPRESSION: 1. Abscess, right hip status post incision and drainage. 2. Acute on chronic renal failure. 3. Urinary retention. 4. Failure to thrive and cachexia. 5. Dementia with behavioral problem. 6. Hypertension. 7. ESRD RECOMMENDATIONS: Observe off antibiotic Subjective ROS Limited/Unobtainable: Yes Constitutional: Reports: no symptoms Allergies: Coded Allergies: No Known Allergies (Unverified , 11/12/18) Objective Vital Signs Last 24 Hour Vital Signs Date Time Temp Pulse Resp B/P (MAP) Pulse Ox O2 Delivery O2 Flow Rate FiO2 11/24/18 09:18 98 179/72 11/24/18 09:00 Room Air 11/24/18 08:00 98.1 98 20 179/72 (107) 97 11/24/18 06:15 149/82 11/24/18 04:00 98.1 90 20 149/82 (104) 97 11/24/18 00:30 184/96 11/24/18 00:00 97.3 99 20 184/96 (125) 97 11/23/18 21:00 Room Air 11/23/18 20:00 97.2 93 16 150/73 (98) 97 11/23/18 17:21 142/64 11/23/18 16:00 97.3 76 16 135/68 (90) 97 11/23/18 12:27 138/71 11/23/18 12:00 98.3 80 16 138/71 (93) 97 Height (Feet): 5 Height (Inches): 2.00 Weight (Pounds): 88 General Appearance: no acute distress, cachetic HEENT: mucous membranes moist Respiratory/Chest: lungs clear Cardiovascular: normal rate Abdomen: soft, non tender Extremities: no edema Neurologic/Psychiatric: other - sleeping, snoring Musculoskeletal: atrophy Microbiology Date/Time Source Procedure Growth Status 11/21/18 20:10 Stool Clostridium difficile Toxin Assay - Final Complete Current Medications Medications (Trade) Dose Ordered Sig/Javier Route PRN Reason Start Time Stop Time Status Last Admin Dose Admin Acetaminophen (Tylenol) 650 mg Q4H PRN ORAL Mild Pain/Temp > 100.5 11/12/18 20:00 12/12/18 19:59 11/14/18 18:39 Acetaminophen/ Hydrocodone Bitart ([place] 10/325) 1 tab Q4H PRN ORAL PAIN 4-10 11/23/18 08:45 11/30/18 08:44 11/24/18 06:20 Amlodipine Besylate (Norvasc) 10 mg DAILY ORAL 11/20/18 11:00 12/20/18 10:59 11/24/18 09:18 Dextrose (Dextrose 50%) 25 ml Q30M PRN IV Hypoglycemia 11/18/18 16:00 12/18/18 15:59 Dextrose (Dextrose 50%) 50 ml Q30M PRN IV Hypoglycemia 11/18/18 16:00 12/18/18 15:59 Diphenhydramine HCl (Benadryl) 25 mg Q4H PRN IVP Itching 11/23/18 19:52 12/23/18 19:51 11/23/18 20:42 Doxazosin Mesylate (Cardura) 2 mg DAILY ORAL 11/20/18 10:45 12/20/18 10:44 11/24/18 09:17 Epoetin Thomas (Epoetin Thomas-EPBX(NON ESRD)) 3,000 unit THU-THU-THU SUBQ 11/15/18 21:00 12/15/18 20:59 11/22/18 20:28 Heparin Sodium (Porcine) (Heparin 5000 units/ml) 5,000 units EVERY 12 HOURS SUBQ 11/19/18 21:30 12/19/18 21:29 11/24/18 09:54 Hydralazine HCl (Apresoline) 50 mg EVERY 6 HOURS NG 11/21/18 18:00 12/19/18 13:33 11/24/18 06:15 Insulin Aspart (NovoLOG) EVERY 6 HOURS SUBQ 11/20/18 00:00 12/18/18 20:59 11/24/18 06:17 Lactobacillus Acidophilus (Culturelle) 1 tab THREE TIMES A DAY NG 11/21/18 18:00 12/21/18 17:59 11/24/18 09:18 Lansoprazole (Prevacid) 30 mg BID NG 11/19/18 18:00 12/19/18 17:59 11/24/18 09:17 Loperamide HCl (Imodium) 2 mg Q6H PRN NG Diarrhea 11/21/18 14:45 12/21/18 14:44 Lorazepam (Ativan 2mg/ml 1ml) 1 mg Q4H PRN IV For restlessness 11/19/18 23:45 11/26/18 23:44 11/24/18 09:18 Mirtazapine (Remeron) 15 mg BEDTIME ORAL 11/19/18 21:30 12/19/18 21:29 11/23/18 20:36 Ondansetron HCl (Zofran) 0.5 mg Q8H PRN IVP Nausea & Vomiting 11/12/18 20:00 12/12/18 19:59 Quetiapine Fumarate (SEROquel) 100 mg QHS ORAL 11/19/18 21:30 12/19/18 21:29 11/23/18 20:35 Sevelamer Carbonate (Renvela) 800 mg THREE TIMES A DAY NG 11/20/18 13:00 12/20/18 12:59 11/24/18 09:17 Warren Parks MD Nov 24, 2018 10:57
[2018-11-24 12:00] VITALS: BP 181/100
--- NOTE | 2018-11-24 12:45 | Nephrology Progress Note ---
Assessment/Plan Problem List: (1) Abscess of right hip (2) Renal failure (ARF), acute on chronic (3) Urinary retention (4) Diabetes mellitus (5) Failure to thrive Assessment Renal failure: - Acute , due to meds- Obstruction.... - Chronic: Due to underlying ?HTN / DM ... Urinary Retention in ANJEL HyperGlycemia / DM / Proteinuria Anemia Right hip abcess UTI . Plan Patient pulled out her femoral cath ! dialysis 11/20 cancelled as family changed their mind patient have left femoral cath start Imodium for loose BM , check C dif monitor renal parameters bailey cath monitor I&O Keep BP and BS in check Avoid Nephrotoxics Antibiotics and surgical fu Urine studies Vanco level 24 on 11/16 has NGT , will start Nepro ? DC ?? comfort care - No code... Subjective ROS Limited/Unobtainable: Yes Constitutional: Reports: malaise, weakness Objective Objective Last 24 Hour Vital Signs Date Time Temp Pulse Resp B/P (MAP) Pulse Ox O2 Delivery O2 Flow Rate FiO2 11/24/18 12:27 146/82 11/24/18 12:00 98.2 105 20 181/100 (127) 98 11/24/18 09:18 98 179/72 11/24/18 09:00 Room Air 11/24/18 08:00 98.1 98 20 179/72 (107) 97 11/24/18 06:15 149/82 11/24/18 04:00 98.1 90 20 149/82 (104) 97 11/24/18 00:30 184/96 11/24/18 00:00 97.3 99 20 184/96 (125) 97 11/23/18 21:00 Room Air 11/23/18 20:00 97.2 93 16 150/73 (98) 97 11/23/18 17:21 142/64 11/23/18 16:00 97.3 76 16 135/68 (90) 97 Intake and Output 11/23/18 11/24/18 19:00 07:00 Intake Total 410 ml 720 ml Output Total 500 ml 500 ml Balance -90 ml 220 ml Free Water 200 ml 390 ml Tube Feeding 210 ml 330 ml Output Urine Total 500 ml 500 ml # Bowel Movements 1 Height (Feet): 5 Height (Inches): 2.00 Weight (Pounds): 88 General Appearance: no apparent distress EENT: other - NGT Cardiovascular: tachycardia Respiratory/Chest: decreased breath sounds Abdomen: distended Objective no change William Blackwood MD Nov 24, 2018 12:45
--- NOTE | 2018-11-24 15:23 | Surgery Progress Note ---
Surgery Progress Note Subjective Procedure Performed left femoral temporary hemodialysis catheter insertion Additional Comments no acute events. not doing well. exam stable. Objective Last 24 Hour Vital Signs Date Time Temp Pulse Resp B/P (MAP) Pulse Ox O2 Delivery O2 Flow Rate FiO2 11/24/18 12:27 146/82 11/24/18 12:00 98.2 105 20 181/100 (127) 98 11/24/18 09:18 98 179/72 11/24/18 09:00 Room Air 11/24/18 08:00 98.1 98 20 179/72 (107) 97 11/24/18 06:15 149/82 11/24/18 04:00 98.1 90 20 149/82 (104) 97 11/24/18 00:30 184/96 11/24/18 00:00 97.3 99 20 184/96 (125) 97 11/23/18 21:00 Room Air 11/23/18 20:00 97.2 93 16 150/73 (98) 97 11/23/18 17:21 142/64 11/23/18 16:00 97.3 76 16 135/68 (90) 97 I&O Intake and Output 11/23/18 11/24/18 18:59 06:59 Intake Total 380 ml 750 ml Output Total 1000 ml Balance 380 ml -250 ml Free Water 200 ml 390 ml Tube Feeding 180 ml 360 ml Output Urine Total 1000 ml # Bowel Movements 1 Dressing: saturated Wound: other Drains: other Cardiovascular: RSR Respiratory: decreased breath sounds Abdomen: soft, present bowel sounds, non-distended Extremities: edema, no tenderness, no cyanosis Assessment Post-op Diagnosis same Plan Problems: (1) Abscess of right hip Assessment & Plan: 78F with abscess of right hip, large, deep. on exam mainly looks like cellulitis but once abscess drained significant fluid it was apparent that it was much deeper. proper care necessary and unfortunately unable to get in contact with family. called daughter without reply. abscess needs drainage, washout and proper care. s/p drainage, debridement, washout improving since will likely need feeding tube since note tolerating enough diet needs nutrition to heal this wound overall wound much improved -pending PEG placement - family decision -HD line placed - family held on HD - patient removed HD line -Nursing to do packing and dressing TID -IV abx -will follow with recs -thank you Camilo James Nov 24, 2018 15:23
[2018-11-24 16:00] VITALS: BP 155/72
--- NOTE | 2018-11-24 16:30 | General Progress Note ---
Assessment/Plan Problem List: (1) Anemia due to acute blood loss ICD Codes: D62 - Acute posthemorrhagic anemia SNOMED: 625564928 (2) Dementia ICD Codes: F03.90 - Unspecified dementia without behavioral disturbance SNOMED: 46411775 (3) Renal insufficiency ICD Codes: N28.9 - Disorder of kidney and ureter, unspecified SNOMED: 884785323, 461859562 (4) Abscess of right hip ICD Codes: L02.415 - Cutaneous abscess of right lower limb SNOMED: 418531 Status: stable, progressing Assessment/Plan: cont current rx monitor h/h and labs may need transfusion epo/iron replacement abx per id cont bailey for urinary retention cont ngt feeds proceed with gt family getting second opinion about gt and HD from family physician in [place] Subjective ROS Limited/Unobtainable: Yes Constitutional: Reports: malaise, weakness HEENT: Reports: no symptoms Cardiovascular: Reports: no symptoms Respiratory: Reports: no symptoms Gastrointestinal/Abdominal: Reports: no symptoms Genitourinary: Reports: no symptoms Neurologic/Psychiatric: Reports: no symptoms Endocrine: Reports: no symptoms Hematologic/Lymphatic: Reports: no symptoms Allergies: Coded Allergies: No Known Allergies (Unverified , 11/12/18) All Systems: reviewed and negative except above Subjective d/w son 20 mins last night. they are still undecided about gt placement and HD but are leaning towards comfort care. pt is more alert and agitated. Objective Last 24 Hour Vital Signs Date Time Temp Pulse Resp B/P (MAP) Pulse Ox O2 Delivery O2 Flow Rate FiO2 11/24/18 12:27 146/82 11/24/18 12:00 98.2 105 20 181/100 (127) 98 11/24/18 09:18 98 179/72 11/24/18 09:00 Room Air 11/24/18 08:00 98.1 98 20 179/72 (107) 97 11/24/18 06:15 149/82 11/24/18 04:00 98.1 90 20 149/82 (104) 97 11/24/18 00:30 184/96 11/24/18 00:00 97.3 99 20 184/96 (125) 97 11/23/18 21:00 Room Air 11/23/18 20:00 97.2 93 16 150/73 (98) 97 11/23/18 17:21 142/64 Intake and Output 11/23/18 11/24/18 18:59 06:59 Intake Total 380 ml 750 ml Output Total 1000 ml Balance 380 ml -250 ml Free Water 200 ml 390 ml Tube Feeding 180 ml 360 ml Output Urine Total 1000 ml # Bowel Movements 1 Height (Feet): 5 Height (Inches): 2.00 Weight (Pounds): 88 Objective General Appearance: WD/WN, alert, confused. +NGT Neck: supple Cardiovascular: normal rate, regular rhythm Respiratory/Chest: chest wall non-tender, lungs clear, normal breath sounds Abdomen: normal bowel sounds, non tender, soft, no organomegaly Edema: no edema noted Arm (L), no edema noted Arm (R), no edema noted Leg (L), no edema noted Leg (R), no edema noted Pedal (L), no edema noted Pedal (R), no edema noted Generalized Neurologic: alert, disoriented Nate Beltran MD Nov 24, 2018 16:30
[2018-11-24 20:00] VITALS: BP 154/71
--- NOTE | 2018-11-24 21:35 | General Progress Note ---
Assessment/Plan Status: stable, progressing Assessment/Plan: Assessment - dysphagia, NGT - renal failure - (R) hip infection - bed bound - low albumin Recommendation - Continue NGT feeds, increase TF to match needs - protein supplements - continue current level of care - Family to make decision re TF and HD Subjective Allergies: Coded Allergies: No Known Allergies (Unverified , 11/12/18) Subjective above noted tolerating TF non communicative occasionally agitated albumin low Objective Last 24 Hour Vital Signs Date Time Temp Pulse Resp B/P (MAP) Pulse Ox O2 Delivery O2 Flow Rate FiO2 11/24/18 18:15 155/72 11/24/18 16:00 98.4 91 18 155/72 (99) 98 11/24/18 12:27 146/82 11/24/18 12:00 98.2 105 20 181/100 (127) 98 11/24/18 09:18 98 179/72 11/24/18 09:00 Room Air 11/24/18 08:00 98.1 98 20 179/72 (107) 97 11/24/18 06:15 149/82 11/24/18 04:00 98.1 90 20 149/82 (104) 97 11/24/18 00:30 184/96 11/24/18 00:00 97.3 99 20 184/96 (125) 97 Intake and Output 11/23/18 11/24/18 19:00 07:00 Intake Total 410 ml 750 ml Output Total 500 ml 500 ml Balance -90 ml 250 ml Free Water 200 ml 390 ml Tube Feeding 210 ml 360 ml Output Urine Total 500 ml 500 ml # Bowel Movements 1 Height (Feet): 5 Height (Inches): 2.00 Weight (Pounds): 88 Objective Thin woman NCAT Neck supple supple chest CTA RRR Abd Soft, NT, ND no edema Cristy Elizondo MD Nov 24, 2018 21:35
[2018-11-24] MEDS: Epoetin Alfa-EPBX (NON ESRD) 3000 units/ml vial SUBQ SCH (21:49)
[2018-11-25] VITALS: BP 146/73
[2018-11-25] MEDS: HYDROcodone/Acetamin 10/325 tab ORAL PRN (01:18)
[2018-11-25 04:00] VITALS: BP 152/61
--- NOTE | 2018-11-25 04:15 | Progress Note ---
DATE: 11/24/2018 CARDIOLOGY PROGRESS NOTE SUBJECTIVE: The patient is status post debridement of right lower limb abscess. She is on antimicrobials. Oral intake is poor. NG-tube feedings continue. Family considering G-tube. She also has renal failure. She has a dialysis access, but that was hold and family members are contemplating long-term dialysis versus comfort care. OBJECTIVE: VITAL SIGNS: Blood pressure up to 181/100, heart rate 105, respiratory rate 20, and afebrile. LUNGS: Diminished breath sounds. CARDIAC: Regular rhythm and rate. Normal S1, S2 with a fourth heart sound. ABDOMEN: Soft. EXTREMITIES: Trace edema. IMPRESSION: Labile hypertension due to both underlying hypertensive cardiomyopathy, volume overload due to renal failure, and psychiatric disorder with agitation. PLAN: 1. Await family decision. 2. Titrate antihypertensives. 3. Nutritional support. 4. Poor prognosis. Abel Stubbs M.D. DR: ALICIA JOB#: [id number] CC:
[2018-11-25] MEDS: LORazepam Inj 2mg/ml 1ml IV PRN ×3 (04:32→16:42)
[2018-11-25] MEDS: NovoLOG Insulin Flexpen SUBQ SCH ×4 (05:35→23:49)
[2018-11-25] MEDS: HydrALAZINE 50mg tab NG SCH ×4 (05:35→23:50)
[2018-11-25 08:00] VITALS: BP 163/75
--- NOTE | 2018-11-25 08:59 | General Progress Note ---
Assessment/Plan Problem List: (1) Anemia due to acute blood loss ICD Codes: D62 - Acute posthemorrhagic anemia SNOMED: 354753051 (2) Dementia ICD Codes: F03.90 - Unspecified dementia without behavioral disturbance SNOMED: 34647526 (3) Renal insufficiency ICD Codes: N28.9 - Disorder of kidney and ureter, unspecified SNOMED: 267354165, 655146735 (4) Abscess of right hip ICD Codes: L02.415 - Cutaneous abscess of right lower limb SNOMED: 162172 Status: stable, progressing Assessment/Plan: cont current rx monitor h/h and labs may need transfusion epo/iron replacement abx per id cont bailey for urinary retention cont ngt feeds proceed with gt family getting second opinion about gt and HD from family physician in [place] message left with family about decision regarding HD and GT Subjective ROS Limited/Unobtainable: Yes Constitutional: Reports: no symptoms HEENT: Reports: no symptoms Cardiovascular: Reports: no symptoms Respiratory: Reports: no symptoms Gastrointestinal/Abdominal: Reports: difficulty swallowing, poor appetite Genitourinary: Reports: no symptoms Neurologic/Psychiatric: Reports: pre-existing deficit Endocrine: Reports: no symptoms Hematologic/Lymphatic: Reports: no symptoms Allergies: Coded Allergies: No Known Allergies (Unverified , 11/12/18) All Systems: reviewed and negative except above Subjective no events. tolerating feeds. no fever or chills. no sob. confused. Objective Last 24 Hour Vital Signs Date Time Temp Pulse Resp B/P (MAP) Pulse Ox O2 Delivery O2 Flow Rate FiO2 11/25/18 05:35 152/61 11/25/18 04:00 97.9 98 20 152/61 (91) 98 11/25/18 00:00 99.3 96 18 146/73 (97) 95 11/24/18 23:56 161/75 11/24/18 21:00 Room Air 11/24/18 20:00 97.9 80 20 154/71 (98) 97 11/24/18 18:15 155/72 11/24/18 16:00 98.4 91 18 155/72 (99) 98 11/24/18 12:27 146/82 11/24/18 12:00 98.2 105 20 181/100 (127) 98 11/24/18 09:18 98 179/72 11/24/18 09:00 Room Air Intake and Output 11/24/18 11/25/18 19:00 07:00 Intake Total 710 ml 540 ml Output Total 600 ml 500 ml Balance 110 ml 40 ml Free Water 350 ml 200 ml Tube Feeding 360 ml 340 ml Output Urine Total 600 ml 500 ml Height (Feet): 5 Height (Inches): 2.00 Weight (Pounds): 88 Objective General Appearance: WD/WN, alert, confused. +NGT Neck: supple Cardiovascular: normal rate, regular rhythm Respiratory/Chest: chest wall non-tender, lungs clear, normal breath sounds Abdomen: normal bowel sounds, non tender, soft, no organomegaly Edema: no edema noted Arm (L), no edema noted Arm (R), no edema noted Leg (L), no edema noted Leg (R), no edema noted Pedal (L), no edema noted Pedal (R), no edema noted Generalized Neurologic: alert, disoriented Nate Beltran MD Nov 25, 2018 08:59
[2018-11-25] MEDS: Doxazosin 1mg Tab ORAL SCH ×2 (09:40→17:32)
[2018-11-25] MEDS: Lactobacillus-GG tablet NG SCH ×3 (09:41→17:32)
[2018-11-25] MEDS: Renvela 800mg Pkt NG SCH ×3 (09:41→17:32)
[2018-11-25] MEDS: Heparin 5000 units/ml inj SUBQ SCH ×2 (09:42→21:35)
[2018-11-25 12:00] VITALS: BP 149/66
--- NOTE | 2018-11-25 12:20 | Infectious Diseases Prog Note ---
Assessment/Plan Assessment/Plan IMPRESSION: 1. Abscess, right hip status post incision and drainage. 2. Acute on chronic renal failure. 3. Urinary retention. 4. Failure to thrive and cachexia. 5. Dementia with behavioral problem. 6. Hypertension. 7. ESRD RECOMMENDATIONS: Observe off antibiotic Subjective ROS Limited/Unobtainable: Yes Constitutional: Reports: no symptoms Allergies: Coded Allergies: No Known Allergies (Unverified , 11/12/18) Objective Vital Signs Last 24 Hour Vital Signs Date Time Temp Pulse Resp B/P (MAP) Pulse Ox O2 Delivery O2 Flow Rate FiO2 11/25/18 12:00 98.0 90 18 149/66 (93) 95 11/25/18 09:41 91 163/75 11/25/18 09:00 Room Air 11/25/18 08:00 98.2 91 20 163/75 (104) 95 11/25/18 05:35 152/61 11/25/18 04:00 97.9 98 20 152/61 (91) 98 11/25/18 00:00 99.3 96 18 146/73 (97) 95 11/24/18 23:56 161/75 11/24/18 21:00 Room Air 11/24/18 20:00 97.9 80 20 154/71 (98) 97 11/24/18 18:15 155/72 11/24/18 16:00 98.4 91 18 155/72 (99) 98 11/24/18 12:27 146/82 Height (Feet): 5 Height (Inches): 2.00 Weight (Pounds): 88 HEENT: mucous membranes moist Respiratory/Chest: lungs clear Cardiovascular: normal rate Abdomen: soft, non tender Extremities: no edema Skin: other - surgical wound in right hip Neurologic/Psychiatric: disoriented, aphasia Current Medications Medications (Trade) Dose Ordered Sig/Javier Route PRN Reason Start Time Stop Time Status Last Admin Dose Admin Acetaminophen (Tylenol) 650 mg Q4H PRN ORAL Mild Pain/Temp > 100.5 11/12/18 20:00 12/12/18 19:59 11/14/18 18:39 Acetaminophen/ Hydrocodone Bitart ([place] 10/325) 1 tab Q4H PRN ORAL PAIN 4-10 11/23/18 08:45 11/30/18 08:44 11/25/18 01:18 Amlodipine Besylate (Norvasc) 10 mg DAILY ORAL 11/20/18 11:00 12/20/18 10:59 11/25/18 09:41 Dextrose (Dextrose 50%) 25 ml Q30M PRN IV Hypoglycemia 11/18/18 16:00 12/18/18 15:59 Dextrose (Dextrose 50%) 50 ml Q30M PRN IV Hypoglycemia 11/18/18 16:00 12/18/18 15:59 Diphenhydramine HCl (Benadryl) 25 mg Q4H PRN IVP Itching 11/23/18 19:52 12/23/18 19:51 11/23/18 20:42 Doxazosin Mesylate (Cardura) 2 mg BID ORAL 11/25/18 09:00 12/25/18 08:59 11/25/18 09:40 Epoetin Thomas (Epoetin Thomas-EPBX(NON ESRD)) 3,000 unit THU-THU-THU SUBQ 11/15/18 21:00 12/15/18 20:59 11/24/18 21:49 Heparin Sodium (Porcine) (Heparin 5000 units/ml) 5,000 units EVERY 12 HOURS SUBQ 11/19/18 21:30 12/19/18 21:29 11/25/18 09:42 Hydralazine HCl (Apresoline) 50 mg EVERY 6 HOURS NG 11/21/18 18:00 12/19/18 13:33 11/25/18 05:35 Insulin Aspart (NovoLOG) EVERY 6 HOURS SUBQ 11/20/18 00:00 12/18/18 20:59 11/25/18 05:35 Lactobacillus Acidophilus (Culturelle) 1 tab THREE TIMES A DAY NG 11/21/18 18:00 12/21/18 17:59 11/25/18 09:41 Lansoprazole (Prevacid) 30 mg BID NG 11/19/18 18:00 12/19/18 17:59 11/25/18 09:40 Loperamide HCl (Imodium) 2 mg Q6H PRN NG Diarrhea 11/21/18 14:45 12/21/18 14:44 Lorazepam (Ativan 2mg/ml 1ml) 1 mg Q4H PRN IV For restlessness 11/19/18 23:45 11/26/18 23:44 11/25/18 09:47 Mirtazapine (Remeron) 15 mg BEDTIME ORAL 11/19/18 21:30 12/19/18 21:29 11/24/18 21:46 Ondansetron HCl (Zofran) 0.5 mg Q8H PRN IVP Nausea & Vomiting 11/12/18 20:00 12/12/18 19:59 Quetiapine Fumarate (SEROquel) 100 mg QHS ORAL 11/19/18 21:30 12/19/18 21:29 11/24/18 21:46 Sevelamer Carbonate (Renvela) 800 mg THREE TIMES A DAY NG 11/20/18 13:00 12/20/18 12:59 11/25/18 09:41 Warren Parks MD Nov 25, 2018 12:20
--- NOTE | 2018-11-25 12:28 | Surgery Progress Note ---
Surgery Progress Note Subjective Procedure Performed left femoral temporary hemodialysis catheter insertion Additional Comments Patient seen and examined at bedside. Dressing was removed and wound significantly improved with some forming granulation tissue and significantly smaller less periwound edema and erythema. No drainage. Patient otherwise stable and seemingly comfortable. Objective Last 24 Hour Vital Signs Date Time Temp Pulse Resp B/P (MAP) Pulse Ox O2 Delivery O2 Flow Rate FiO2 11/25/18 12:22 149/66 11/25/18 12:00 98.0 90 18 149/66 (93) 95 11/25/18 09:41 91 163/75 11/25/18 09:00 Room Air 11/25/18 08:00 98.2 91 20 163/75 (104) 95 11/25/18 05:35 152/61 11/25/18 04:00 97.9 98 20 152/61 (91) 98 11/25/18 00:00 99.3 96 18 146/73 (97) 95 11/24/18 23:56 161/75 11/24/18 21:00 Room Air 11/24/18 20:00 97.9 80 20 154/71 (98) 97 11/24/18 18:15 155/72 11/24/18 16:00 98.4 91 18 155/72 (99) 98 I&O Intake and Output 11/24/18 11/25/18 19:00 07:00 Intake Total 710 ml 540 ml Output Total 600 ml 500 ml Balance 110 ml 40 ml Free Water 350 ml 200 ml Tube Feeding 360 ml 340 ml Output Urine Total 600 ml 500 ml Dressing: saturated Wound: clean Cardiovascular: RSR Respiratory: clear Abdomen: soft, flat, non-tender, present bowel sounds Extremities: no tenderness, no cyanosis, other Assessment Post-op Diagnosis same Plan Problems: (1) Abscess of right hip Assessment & Plan: 78F with abscess of right hip, large, deep. on exam mainly looks like cellulitis but once abscess drained significant fluid it was apparent that it was much deeper. proper care necessary and unfortunately unable to get in contact with family. called daughter without reply. abscess needs drainage, washout and proper care. s/p drainage, debridement, washout improving since will likely need feeding tube since note tolerating enough diet needs nutrition to heal this wound overall wound much improved Periwound erythema and edema much improved. Wound bed significantly smaller and healing Patient more comfortable. -pending PEG placement - family decision -HD line placed - family held on HD - patient removed HD line -Nursing to do packing and dressing TID -IV abx -will follow with recs -thank you Camilo James Nov 25, 2018 12:28
--- NOTE | 2018-11-25 13:35 | Nephrology Progress Note ---
Assessment/Plan Problem List: (1) Abscess of right hip (2) Renal failure (ARF), acute on chronic (3) Urinary retention (4) Diabetes mellitus (5) Failure to thrive Assessment Renal failure: - Acute , due to meds- Obstruction.... - Chronic: Due to underlying ?HTN / DM ... Urinary Retention in [place] HyperGlycemia / DM / Proteinuria Anemia Right hip abcess UTI . Plan Patient pulled out her femoral cath ! dialysis 11/20 cancelled as family changed their mind patient have left femoral cath start Imodium for loose BM , check C dif monitor renal parameters bailey cath monitor I&O Keep BP and BS in check Avoid Nephrotoxics Antibiotics and surgical fu Urine studies Vanco level 24 on 11/16 has NGT , will start Nepro ? DC ?? comfort care - No code... family getting second opinion about gt and HD from family physician in [place] message left with family about decision regarding HD and GT Subjective ROS Limited/Unobtainable: No Constitutional: Reports: malaise, weakness Objective Objective Last 24 Hour Vital Signs Date Time Temp Pulse Resp B/P (MAP) Pulse Ox O2 Delivery O2 Flow Rate FiO2 11/25/18 12:22 149/66 11/25/18 12:00 98.0 90 18 149/66 (93) 95 11/25/18 09:41 91 163/75 11/25/18 09:00 Room Air 11/25/18 08:00 98.2 91 20 163/75 (104) 95 11/25/18 05:35 152/61 11/25/18 04:00 97.9 98 20 152/61 (91) 98 11/25/18 00:00 99.3 96 18 146/73 (97) 95 11/24/18 23:56 161/75 11/24/18 21:00 Room Air 11/24/18 20:00 97.9 80 20 154/71 (98) 97 11/24/18 18:15 155/72 11/24/18 16:00 98.4 91 18 155/72 (99) 98 Intake and Output 11/24/18 11/25/18 19:00 07:00 Intake Total 710 ml 540 ml Output Total 600 ml 500 ml Balance 110 ml 40 ml Free Water 350 ml 200 ml Tube Feeding 360 ml 340 ml Output Urine Total 600 ml 500 ml Height (Feet): 5 Height (Inches): 2.00 Weight (Pounds): 88 General Appearance: no apparent distress EENT: other - NGT Respiratory/Chest: decreased breath sounds Abdomen: soft Objective no change William Blackwood MD Nov 25, 2018 13:35
[2018-11-25 16:00] VITALS: BP 124/61
[2018-11-25] MEDS: D5NS 1,000 ML IV SCH (17:31)
[2018-11-25] MEDS: DiphenhydrAMINE 50mg/ml Inj IVP PRN (19:58)
[2018-11-25 20:00] VITALS: BP 132/64
--- NOTE | 2018-11-25 22:11 | General Progress Note ---
Assessment/Plan Status: stable, progressing Assessment/Plan: Assessment - dysphagia - renal failure - (R) hip infection - bed bound - low albumin Recommendation - Conservative Rx - hold feeds - protein supplements - continue current level of care - Family to make decision re level of care Subjective Allergies: Coded Allergies: No Known Allergies (Unverified , 11/12/18) Subjective above noted was tolerating TF non communicative patient pulled out NGT family declined re-insertion Objective Last 24 Hour Vital Signs Date Time Temp Pulse Resp B/P (MAP) Pulse Ox O2 Delivery O2 Flow Rate FiO2 11/25/18 21:00 Room Air 11/25/18 20:00 96.7 54 20 132/64 (86) 95 11/25/18 17:31 124/61 11/25/18 16:00 97.8 80 18 124/61 (82) 95 11/25/18 12:22 149/66 11/25/18 12:00 98.0 90 18 149/66 (93) 95 11/25/18 09:41 91 163/75 11/25/18 09:00 Room Air 11/25/18 08:00 98.2 91 20 163/75 (104) 95 11/25/18 05:35 152/61 11/25/18 04:00 97.9 98 20 152/61 (91) 98 11/25/18 00:00 99.3 96 18 146/73 (97) 95 11/24/18 23:56 161/75 Intake and Output 11/24/18 11/25/18 18:59 06:59 Intake Total 610 ml 670 ml Output Total 600 ml 500 ml Balance 10 ml 170 ml Free Water 250 ml 300 ml Tube Feeding 360 ml 370 ml Output Urine Total 600 ml 500 ml Height (Feet): 5 Height (Inches): 2.00 Weight (Pounds): 88 Objective Thin woman NCAT Neck supple supple chest CTA RRR Abd Soft, NT, ND no edema Cristy Elizondo MD Nov 25, 2018 22:11
[2018-11-26] VITALS (8 sets, daily range): BP systolic 132–168; BP diastolic 62–85
--- NOTE | 2018-11-26 05:00 | Progress Note ---
DATE: 11/25/2018 CARDIOLOGY PROGRESS NOTE SUBJECTIVE: Condition largely unchanged. Family members awaiting second opinion regarding placement of G-tube and resuming hemodialysis. OBJECTIVE: VITAL SIGNS: Blood pressure 152/61, pulse 98, and respirations 20. LUNGS: With diminished breath sounds. CARDIAC: Regular rhythm and rate. Normal S1, S2 and a fourth heart sound. ABDOMEN: Soft. A 1+ dependent edema. IMPRESSION: 1. Right hip abscess status post debridement. 2. Hypertensive heart disease. 3. Acute on chronic diastolic congestive heart failure. 4. Chronic kidney disease stage 5. 5. Severe protein-calorie malnutrition. 6. Cerebrovascular disease with dementia. 7. Anemia multifactorial. PLAN: 1. Nutritional support. 2. Skin care. 3. Monitor blood counts. 4. Await family decision regarding dialysis and G-tube. Abel Stubbs M.D. DR: ALICIA JOB#: [id number] CC:
[2018-11-26] MEDS: HydrALAZINE 50mg tab NG SCH ×4 (05:20→23:43)
[2018-11-26] MEDS: NovoLOG Insulin Flexpen SUBQ SCH ×4 (05:22→23:48)
[2018-11-26 06:26] LABS: MEAN CORPUSCULAR VOLUME 95 FL (80-99); PLATELET COUNT 318 K/UL (150-450); RED BLOOD COUNT 2.01 M/UL (4.20-5.40); RED CELL DISTRIBUTION WIDTH 18.8 % (11.6-14.8); WHITE BLOOD COUNT 12.2 K/UL (4.8-10.8)
[2018-11-26 06:49] LABS: HEMOGLOBIN 6.1 G/DL (12.0-16.0)
[2018-11-26 07:15] LABS: ALANINE AMINOTRANSFERASE 30 U/L (12-78); ALBUMIN 2.2 G/DL (3.4-5.0); ALBUMIN/GLOBULIN RATIO 0.5 (1.0-2.7); ALKALINE PHOSPHATASE 92 U/L (46-116); ANION GAP 11 mmol/L (5-15); ASPARTATE AMINO TRANSFERASE 26 U/L (15-37); BILIRUBIN,TOTAL 0.3 MG/DL (0.2-1.0); BLOOD UREA NITROGEN 69 mg/dL (7-18); CARBON DIOXIDE 22 MMOL/L (21-32); CHLORIDE 108 MMOL/L (98-107); CREATININE 6.4 MG/DL (0.55-1.30); GAMMA GLUTAMYL TRANSPEPTIDASE 24 U/L (5-85); PHOSPHORUS 4.9 MG/DL (2.5-4.9); POTASSIUM 3.8 MMOL/L (3.5-5.1); SODIUM 141 MMOL/L (136-145)
[2018-11-26] MEDS: Doxazosin 1mg Tab ORAL SCH ×2 (08:59→18:07)
[2018-11-26] MEDS: Lactobacillus-GG tablet NG SCH ×3 (09:00→18:11)
[2018-11-26] MEDS: Heparin 5000 units/ml inj SUBQ SCH ×2 (09:00→20:30)
--- NOTE | 2018-11-26 10:54 | Infectious Diseases Prog Note ---
Assessment/Plan Assessment/Plan antibiotics : none A 1. right hip abscess s/p i and d, s/p rx 2. renal failure 3. hypertension 4. dementia P 1. continue off antibiotics Subjective ROS Limited/Unobtainable: Yes Allergies: Coded Allergies: No Known Allergies (Unverified , 11/12/18) Objective Vital Signs Last 24 Hour Vital Signs Date Time Temp Pulse Resp B/P (MAP) Pulse Ox O2 Delivery O2 Flow Rate FiO2 11/26/18 09:00 90 168/63 11/26/18 09:00 Room Air 11/26/18 08:00 98.0 90 19 168/63 (98) 97 11/26/18 05:20 147/74 11/26/18 04:00 98.1 87 20 147/74 (98) 97 11/26/18 00:00 97.9 83 20 160/69 (99) 96 11/25/18 23:50 160/69 11/25/18 21:00 Room Air 11/25/18 20:00 96.7 54 20 132/64 (86) 95 11/25/18 17:31 124/61 11/25/18 16:00 97.8 80 18 124/61 (82) 95 11/25/18 12:22 149/66 11/25/18 12:00 98.0 90 18 149/66 (93) 95 Height (Feet): 5 Height (Inches): 2.00 Weight (Pounds): 88 Respiratory/Chest: lungs clear Cardiovascular: normal rate, regular rhythm, no gallop/murmur Abdomen: soft, non tender Extremities: no edema Laboratory Tests Test 11/26/18 06:00 White Blood Count 12.2 K/UL (4.8-10.8) H Red Blood Count 2.01 M/UL (4.20-5.40) L Hemoglobin 6.1 G/DL (12.0-16.0) *L Hematocrit 19.0 % (37.0-47.0) L Mean Corpuscular Volume 95 FL (80-99) Mean Corpuscular Hemoglobin 30.5 PG (27.0-31.0) Mean Corpuscular Hemoglobin Concent 32.2 G/DL (32.0-36.0) Red Cell Distribution Width 18.8 % (11.6-14.8) H Platelet Count 318 K/UL (150-450) Mean Platelet Volume 5.7 FL (6.5-10.1) L Neutrophils (%) (Auto) % (45.0-75.0) Lymphocytes (%) (Auto) % (20.0-45.0) Monocytes (%) (Auto) % (1.0-10.0) Eosinophils (%) (Auto) % (0.0-3.0) Basophils (%) (Auto) % (0.0-2.0) Differential Total Cells Counted 100 Neutrophils % (Manual) 38 % (45-75) L Lymphocytes % (Manual) 56 % (20-45) H Monocytes % (Manual) 5 % (1-10) Eosinophils % (Manual) 1 % (0-3) Basophils % (Manual) 0 % (0-2) Band Neutrophils 0 % (0-8) Platelet Estimate Adequate Platelet Morphology Normal Hypochromasia 1+ Anisocytosis 2+ Sodium Level 141 MMOL/L (136-145) Potassium Level 3.8 MMOL/L (3.5-5.1) Chloride Level 108 MMOL/L (98-107) H Carbon Dioxide Level 22 MMOL/L (21-32) Anion Gap 11 mmol/L (5-15) Blood Urea Nitrogen 69 mg/dL (7-18) H Creatinine 6.4 MG/DL (0.55-1.30) H Estimat Glomerular Filtration Rate mL/min (>60) Glucose Level 116 MG/DL (74-106) H Uric Acid 8.5 MG/DL (2.6-7.2) H Calcium Level 9.0 MG/DL (8.5-10.1) Phosphorus Level 4.9 MG/DL (2.5-4.9) Magnesium Level 2.3 MG/DL (1.8-2.4) Total Bilirubin 0.3 MG/DL (0.2-1.0) Gamma Glutamyl Transpeptidase 24 U/L (5-85) Aspartate Amino Transf (AST/SGOT) 26 U/L (15-37) Alanine Aminotransferase (ALT/SGPT) 30 U/L (12-78) Alkaline Phosphatase 92 U/L (46-116) C-Reactive Protein, Quantitative 16.1 mg/dL (0.00-0.90) H Pro-B-Type Natriuretic Peptide 9596 pg/mL (0-125) H Total Protein 6.4 G/DL (6.4-8.2) Albumin 2.2 G/DL (3.4-5.0) L Globulin 4.2 g/dL Albumin/Globulin Ratio 0.5 (1.0-2.7) L Current Medications Medications (Trade) Dose Ordered Sig/Javier Route PRN Reason Start Time Stop Time Status Last Admin Dose Admin Acetaminophen (Tylenol) 650 mg Q4H PRN ORAL Mild Pain/Temp > 100.5 11/12/18 20:00 12/12/18 19:59 11/14/18 18:39 Acetaminophen/ Hydrocodone Bitart ([place] 10325) 1 tab Q4H PRN ORAL PAIN 4-10 11/23/18 08:45 11/30/18 08:44 11/25/18 01:18 Amlodipine Besylate (Norvasc) 10 mg DAILY ORAL 11/20/18 11:00 12/20/18 10:59 11/26/18 09:00 Dextrose (Dextrose 50%) 25 ml Q30M PRN IV Hypoglycemia 11/18/18 16:00 12/18/18 15:59 Dextrose (Dextrose 50%) 50 ml Q30M PRN IV Hypoglycemia 11/18/18 16:00 12/18/18 15:59 Dextrose/Sodium Chloride 1,000 ml @ 60 mls/hr [id number] IV 11/25/18 17:28 12/25/18 17:27 11/25/18 17:31 Diphenhydramine HCl (Benadryl) 25 mg Q4H PRN IVP Itching 11/23/18 19:52 12/23/18 19:51 11/25/18 19:58 Doxazosin Mesylate (Cardura) 2 mg BID ORAL 11/25/18 09:00 12/25/18 08:59 11/26/18 08:59 Epoetin Thomas (Epoetin Thomas-EPBX(NON ESRD)) 3,000 unit THU-THU-THU SUBQ 11/15/18 21:00 12/15/18 20:59 11/24/18 21:49 Heparin Sodium (Porcine) (Heparin 5000 units/ml) 5,000 units EVERY 12 HOURS SUBQ 11/19/18 21:30 12/19/18 21:29 11/25/18 21:35 Hydralazine HCl (Apresoline) 50 mg EVERY 6 HOURS NG 11/21/18 18:00 12/19/18 13:33 11/25/18 12:22 Insulin Aspart (NovoLOG) EVERY 6 HOURS SUBQ 11/20/18 00:00 12/18/18 20:59 11/26/18 05:22 Lactobacillus Acidophilus (Culturelle) 1 tab THREE TIMES A DAY NG 11/21/18 18:00 12/21/18 17:59 11/26/18 09:00 Lansoprazole (Prevacid) 30 mg BID NG 11/19/18 18:00 12/19/18 17:59 11/26/18 08:58 Loperamide HCl (Imodium) 2 mg Q6H PRN NG Diarrhea 11/21/18 14:45 12/21/18 14:44 Lorazepam (Ativan 2mg/ml 1ml) 1 mg Q4H PRN IV For restlessness 11/19/18 23:45 11/26/18 23:44 11/25/18 16:42 Mirtazapine (Remeron) 15 mg BEDTIME ORAL 11/19/18 21:30 12/19/18 21:29 11/24/18 21:46 Ondansetron HCl (Zofran) 0.5 mg Q8H PRN IVP Nausea & Vomiting 11/12/18 20:00 12/12/18 19:59 Quetiapine Fumarate (SEROquel) 100 mg QHS ORAL 11/19/18 21:30 12/19/18 21:29 11/24/18 21:46 Sevelamer Carbonate (Renvela) 800 mg THREE TIMES A DAY NG 11/20/18 13:00 12/20/18 12:59 11/25/18 12:22 Melissa Solares MD Nov 26, 2018 10:53
[2018-11-26] MEDS: DiphenhydrAMINE 50mg/ml Inj IVP PRN (12:05)
--- NOTE | 2018-11-26 12:22 | Surgery Progress Note ---
Surgery Progress Note Subjective Procedure Performed left femoral temporary hemodialysis catheter insertion Symptoms: tolerating diet, voiding well, passing flatus Objective Last 24 Hour Vital Signs Date Time Temp Pulse Resp B/P (MAP) Pulse Ox O2 Delivery O2 Flow Rate FiO2 11/26/18 09:00 90 168/63 11/26/18 09:00 Room Air 11/26/18 08:00 98.0 90 19 168/63 (98) 97 11/26/18 05:20 147/74 11/26/18 04:00 98.1 87 20 147/74 (98) 97 11/26/18 00:00 97.9 83 20 160/69 (99) 96 11/25/18 23:50 160/69 11/25/18 21:00 Room Air 11/25/18 20:00 96.7 54 20 132/64 (86) 95 11/25/18 17:31 124/61 11/25/18 16:00 97.8 80 18 124/61 (82) 95 11/25/18 12:22 149/66 I&O Intake and Output 11/25/18 11/26/18 19:00 07:00 Intake Total 505 ml 720 ml Output Total 700 ml 500 ml Balance -195 ml 220 ml Free Water 200 ml IV Total 60 ml 720 ml Tube Feeding 245 ml Output Urine Total 700 ml 500 ml # Bowel Movements 4 Dressing: saturated Wound: clean Cardiovascular: RSR Respiratory: clear Abdomen: soft, flat, non-tender, present bowel sounds Extremities: edema, no tenderness, no cyanosis Laboratory Tests Test 11/26/18 06:00 White Blood Count 12.2 K/UL (4.8-10.8) H Red Blood Count 2.01 M/UL (4.20-5.40) L Hemoglobin 6.1 G/DL (12.0-16.0) *L Hematocrit 19.0 % (37.0-47.0) L Mean Corpuscular Volume 95 FL (80-99) Mean Corpuscular Hemoglobin 30.5 PG (27.0-31.0) Mean Corpuscular Hemoglobin Concent 32.2 G/DL (32.0-36.0) Red Cell Distribution Width 18.8 % (11.6-14.8) H Platelet Count 318 K/UL (150-450) Mean Platelet Volume 5.7 FL (6.5-10.1) L Neutrophils (%) (Auto) % (45.0-75.0) Lymphocytes (%) (Auto) % (20.0-45.0) Monocytes (%) (Auto) % (1.0-10.0) Eosinophils (%) (Auto) % (0.0-3.0) Basophils (%) (Auto) % (0.0-2.0) Differential Total Cells Counted 100 Neutrophils % (Manual) 38 % (45-75) L Lymphocytes % (Manual) 56 % (20-45) H Monocytes % (Manual) 5 % (1-10) Eosinophils % (Manual) 1 % (0-3) Basophils % (Manual) 0 % (0-2) Band Neutrophils 0 % (0-8) Platelet Estimate Adequate Platelet Morphology Normal Hypochromasia 1+ Anisocytosis 2+ Sodium Level 141 MMOL/L (136-145) Potassium Level 3.8 MMOL/L (3.5-5.1) Chloride Level 108 MMOL/L (98-107) H Carbon Dioxide Level 22 MMOL/L (21-32) Anion Gap 11 mmol/L (5-15) Blood Urea Nitrogen 69 mg/dL (7-18) H Creatinine 6.4 MG/DL (0.55-1.30) H Estimat Glomerular Filtration Rate mL/min (>60) Glucose Level 116 MG/DL (74-106) H Uric Acid 8.5 MG/DL (2.6-7.2) H Calcium Level 9.0 MG/DL (8.5-10.1) Phosphorus Level 4.9 MG/DL (2.5-4.9) Magnesium Level 2.3 MG/DL (1.8-2.4) Total Bilirubin 0.3 MG/DL (0.2-1.0) Gamma Glutamyl Transpeptidase 24 U/L (5-85) Aspartate Amino Transf (AST/SGOT) 26 U/L (15-37) Alanine Aminotransferase (ALT/SGPT) 30 U/L (12-78) Alkaline Phosphatase 92 U/L (46-116) C-Reactive Protein, Quantitative 16.1 mg/dL (0.00-0.90) H Pro-B-Type Natriuretic Peptide 9596 pg/mL (0-125) H Total Protein 6.4 G/DL (6.4-8.2) Albumin 2.2 G/DL (3.4-5.0) L Globulin 4.2 g/dL Albumin/Globulin Ratio 0.5 (1.0-2.7) L Assessment Post-op Diagnosis same Plan Problems: (1) Abscess of right hip Assessment & Plan: 78F with abscess of right hip, large, deep. on exam mainly looks like cellulitis but once abscess drained significant fluid it was apparent that it was much deeper. proper care necessary and unfortunately unable to get in contact with family. called daughter without reply. abscess needs drainage, washout and proper care. s/p drainage, debridement, washout improving since will likely need feeding tube since note tolerating enough diet needs nutrition to heal this wound overall wound much improved Periwound erythema and edema much improved. Wound bed significantly smaller and healing Patient more comfortable. -pending PEG placement - family decision -HD line placed - family held on HD - patient removed HD line -Nursing to do packing and dressing TID -IV abx -will follow with recs -thank you Camilo James Nov 26, 2018 12:22
[2018-11-26] MEDS: LORazepam Inj 2mg/ml 1ml IV PRN (12:33)
[2018-11-26] MEDS: Renvela 800mg Pkt NG SCH ×3 (12:47→18:00)
[2018-11-26] MEDS: D5NS 1,000 ML IV SCH (12:48)
--- NOTE | 2018-11-26 14:30 | Nephrology Progress Note ---
Assessment/Plan Problem List: (1) Abscess of right hip (2) Renal failure (ARF), acute on chronic (3) Urinary retention (4) Diabetes mellitus (5) Failure to thrive Assessment Renal failure: - Acute , due to meds- Obstruction.... - Chronic: Due to underlying ?HTN / DM ... Urinary Retention in [facility] HyperGlycemia / DM / Proteinuria Anemia Right hip abcess UTI . Plan Patient pulled out her femoral cath 11/21! dialysis 11/20 cancelled as family changed their mind patient have left femoral cath start Imodium for loose BM , check C dif monitor renal parameters bailey cath monitor I&O Keep BP and BS in check Avoid Nephrotoxics Antibiotics and surgical fu Urine studies Vanco level 24 on 11/16 has NGT , will start Nepro ? DC ?? comfort care - No code... family getting second opinion about gt and HD from family physician in [place] message left with family about decision regarding HD and GT Subjective ROS Limited/Unobtainable: No Constitutional: Reports: malaise, weakness Objective Objective Last 24 Hour Vital Signs Date Time Temp Pulse Resp B/P (MAP) Pulse Ox O2 Delivery O2 Flow Rate FiO2 11/26/18 12:47 132/70 11/26/18 12:00 97.2 95 132/70 (90) 11/26/18 09:00 90 168/63 11/26/18 09:00 Room Air 11/26/18 08:00 98.0 90 19 168/63 (98) 97 11/26/18 05:20 147/74 11/26/18 04:00 98.1 87 20 147/74 (98) 97 11/26/18 00:00 97.9 83 20 160/69 (99) 96 11/25/18 23:50 160/69 11/25/18 21:00 Room Air 11/25/18 20:00 96.7 54 20 132/64 (86) 95 11/25/18 17:31 124/61 11/25/18 16:00 97.8 80 18 124/61 (82) 95 Intake and Output 11/25/18 11/26/18 19:00 07:00 Intake Total 505 ml 720 ml Output Total 700 ml 500 ml Balance -195 ml 220 ml Free Water 200 ml IV Total 60 ml 720 ml Tube Feeding 245 ml Output Urine Total 700 ml 500 ml # Bowel Movements 4 Laboratory Tests 11/26/18 06:00: White Blood Count 12.2H, Red Blood Count 2.01L, Hemoglobin 6.1*L, Hematocrit 19.0L, Mean Corpuscular Volume 95, Mean Corpuscular Hemoglobin 30.5, Mean Corpuscular Hemoglobin Concent 32.2, Red Cell Distribution Width 18.8H, Platelet Count 318, Mean Platelet Volume 5.7L, Neutrophils (%) (Auto) , Lymphocytes (%) (Auto) , Monocytes (%) (Auto) , Eosinophils (%) (Auto) , Basophils (%) (Auto) , Differential Total Cells Counted 100, Neutrophils % ( Manual) 38L, Lymphocytes % (Manual) 56H, Monocytes % (Manual) 5, Eosinophils % ( Manual) 1, Basophils % (Manual) 0, Band Neutrophils 0, Platelet Estimate Adequate, Platelet Morphology Normal, Hypochromasia 1+, Anisocytosis 2+, Sodium Level 141, Potassium Level 3.8, Chloride Level 108H, Carbon Dioxide Level 22, Anion Gap 11, Blood Urea Nitrogen 69H, Creatinine 6.4H, Estimat Glomerular Filtration Rate , Glucose Level 116H, Uric Acid 8.5H, Calcium Level 9.0, Phosphorus Level 4.9, Magnesium Level 2.3, Total Bilirubin 0.3, Gamma Glutamyl Transpeptidase 24, Aspartate Amino Transf (AST/SGOT) 26, Alanine Aminotransferase (ALT/SGPT) 30, Alkaline Phosphatase 92, C-Reactive Protein, Quantitative 16.1H, Pro-B-Type Natriuretic Peptide 9596H, Total Protein 6.4, Albumin 2.2L, Globulin 4.2, Albumin/Globulin Ratio 0.5L Height (Feet): 5 Height (Inches): 2.00 Weight (Pounds): 88 General Appearance: mild distress EENT: other - NGT out Cardiovascular: tachycardia Respiratory/Chest: decreased breath sounds Abdomen: soft Objective no change William Blackwood MD Nov 26, 2018 14:30
[2018-11-26] MEDS ORDERED: D5NS 1000ml IV ONE (15:47)
--- NOTE | 2018-11-26 15:52 | General Progress Note ---
Assessment/Plan Status: stable, progressing Assessment/Plan: Assessment - dysphagia - resolved, tolerating po diet - renal failure - (R) hip infection - bed bound - low albumin Recommendation - Conservative Rx - careful po diet as tolerated - continue current level of care - Family to make decision re level of care Subjective Allergies: Coded Allergies: No Known Allergies (Unverified , 11/12/18) Subjective above noted started on po diet ate well per RN report Objective Last 24 Hour Vital Signs Date Time Temp Pulse Resp B/P (MAP) Pulse Ox O2 Delivery O2 Flow Rate FiO2 11/26/18 12:47 132/70 11/26/18 12:00 97.2 95 132/70 (90) 11/26/18 09:00 90 168/63 11/26/18 09:00 Room Air 11/26/18 08:00 98.0 90 19 168/63 (98) 97 11/26/18 05:20 147/74 11/26/18 04:00 98.1 87 20 147/74 (98) 97 11/26/18 00:00 97.9 83 20 160/69 (99) 96 11/25/18 23:50 160/69 11/25/18 21:00 Room Air 11/25/18 20:00 96.7 54 20 132/64 (86) 95 11/25/18 17:31 124/61 11/25/18 16:00 97.8 80 18 124/61 (82) 95 Intake and Output 11/25/18 11/26/18 19:00 07:00 Intake Total 505 ml 720 ml Output Total 700 ml 500 ml Balance -195 ml 220 ml Free Water 200 ml IV Total 60 ml 720 ml Tube Feeding 245 ml Output Urine Total 700 ml 500 ml # Bowel Movements 4 Laboratory Tests 11/26/18 06:00: White Blood Count 12.2H, Red Blood Count 2.01L, Hemoglobin 6.1*L, Hematocrit 19.0L, Mean Corpuscular Volume 95, Mean Corpuscular Hemoglobin 30.5, Mean Corpuscular Hemoglobin Concent 32.2, Red Cell Distribution Width 18.8H, Platelet Count 318, Mean Platelet Volume 5.7L, Neutrophils (%) (Auto) , Lymphocytes (%) (Auto) , Monocytes (%) (Auto) , Eosinophils (%) (Auto) , Basophils (%) (Auto) , Differential Total Cells Counted 100, Neutrophils % ( Manual) 38L, Lymphocytes % (Manual) 56H, Monocytes % (Manual) 5, Eosinophils % ( Manual) 1, Basophils % (Manual) 0, Band Neutrophils 0, Platelet Estimate Adequate, Platelet Morphology Normal, Hypochromasia 1+, Anisocytosis 2+, Sodium Level 141, Potassium Level 3.8, Chloride Level 108H, Carbon Dioxide Level 22, Anion Gap 11, Blood Urea Nitrogen 69H, Creatinine 6.4H, Estimat Glomerular Filtration Rate , Glucose Level 116H, Uric Acid 8.5H, Calcium Level 9.0, Phosphorus Level 4.9, Magnesium Level 2.3, Total Bilirubin 0.3, Gamma Glutamyl Transpeptidase 24, Aspartate Amino Transf (AST/SGOT) 26, Alanine Aminotransferase (ALT/SGPT) 30, Alkaline Phosphatase 92, C-Reactive Protein, Quantitative 16.1H, Pro-B-Type Natriuretic Peptide 9596H, Total Protein 6.4, Albumin 2.2L, Globulin 4.2, Albumin/Globulin Ratio 0.5L Height (Feet): 5 Height (Inches): 2.00 Weight (Pounds): 88 Objective Thin woman NCAT Neck supple supple chest CTA RRR Abd Soft, NT, ND no edema Cristy Elizondo MD Nov 26, 2018 15:52
--- NOTE | 2018-11-26 16:40 | General Progress Note ---
Assessment/Plan Problem List: (1) Anemia due to acute blood loss ICD Codes: D62 - Acute posthemorrhagic anemia SNOMED: 332128040 (2) Dementia ICD Codes: F03.90 - Unspecified dementia without behavioral disturbance SNOMED: 56839206 (3) Renal insufficiency ICD Codes: N28.9 - Disorder of kidney and ureter, unspecified SNOMED: 045393565, 681454687 (4) Abscess of right hip ICD Codes: L02.415 - Cutaneous abscess of right lower limb SNOMED: 475488 Status: stable, progressing Assessment/Plan: cont current rx monitor h/h and labs transfuse epo/iron replacement abx per id cont bailey for urinary retention dc ngt. encourage po family aware pt may need endoscopy if continued bleeding family getting second opinion about gt and HD from family physician in [place] message left with family about decision regarding HD and GT Subjective ROS Limited/Unobtainable: Yes Constitutional: Reports: malaise, weakness HEENT: Reports: no symptoms Cardiovascular: Reports: no symptoms Respiratory: Reports: no symptoms Gastrointestinal/Abdominal: Reports: tarry stools Genitourinary: Reports: no symptoms Neurologic/Psychiatric: Reports: pre-existing deficit Endocrine: Reports: no symptoms Hematologic/Lymphatic: Reports: anemia Allergies: Coded Allergies: No Known Allergies (Unverified , 11/12/18) All Systems: reviewed and negative except above Subjective melena. decreased h/h noted. alert. agitated. no fevers. family still deciding on gt Objective Last 24 Hour Vital Signs Date Time Temp Pulse Resp B/P (MAP) Pulse Ox O2 Delivery O2 Flow Rate FiO2 11/26/18 12:47 132/70 11/26/18 12:00 97.2 95 132/70 (90) 11/26/18 09:00 90 168/63 11/26/18 09:00 Room Air 11/26/18 08:00 98.0 90 19 168/63 (98) 97 11/26/18 05:20 147/74 11/26/18 04:00 98.1 87 20 147/74 (98) 97 11/26/18 00:00 97.9 83 20 160/69 (99) 96 11/25/18 23:50 160/69 11/25/18 21:00 Room Air 11/25/18 20:00 96.7 54 20 132/64 (86) 95 11/25/18 17:31 124/61 Intake and Output 11/25/18 11/26/18 19:00 07:00 Intake Total 505 ml 720 ml Output Total 700 ml 500 ml Balance -195 ml 220 ml Free Water 200 ml IV Total 60 ml 720 ml Tube Feeding 245 ml Output Urine Total 700 ml 500 ml # Bowel Movements 4 Laboratory Tests 11/26/18 06:00: White Blood Count 12.2H, Red Blood Count 2.01L, Hemoglobin 6.1*L, Hematocrit 19.0L, Mean Corpuscular Volume 95, Mean Corpuscular Hemoglobin 30.5, Mean Corpuscular Hemoglobin Concent 32.2, Red Cell Distribution Width 18.8H, Platelet Count 318, Mean Platelet Volume 5.7L, Neutrophils (%) (Auto) , Lymphocytes (%) (Auto) , Monocytes (%) (Auto) , Eosinophils (%) (Auto) , Basophils (%) (Auto) , Differential Total Cells Counted 100, Neutrophils % ( Manual) 38L, Lymphocytes % (Manual) 56H, Monocytes % (Manual) 5, Eosinophils % ( Manual) 1, Basophils % (Manual) 0, Band Neutrophils 0, Platelet Estimate Adequate, Platelet Morphology Normal, Hypochromasia 1+, Anisocytosis 2+, Sodium Level 141, Potassium Level 3.8, Chloride Level 108H, Carbon Dioxide Level 22, Anion Gap 11, Blood Urea Nitrogen 69H, Creatinine 6.4H, Estimat Glomerular Filtration Rate , Glucose Level 116H, Uric Acid 8.5H, Calcium Level 9.0, Phosphorus Level 4.9, Magnesium Level 2.3, Total Bilirubin 0.3, Gamma Glutamyl Transpeptidase 24, Aspartate Amino Transf (AST/SGOT) 26, Alanine Aminotransferase (ALT/SGPT) 30, Alkaline Phosphatase 92, C-Reactive Protein, Quantitative 16.1H, Pro-B-Type Natriuretic Peptide 9596H, Total Protein 6.4, Albumin 2.2L, Globulin 4.2, Albumin/Globulin Ratio 0.5L Height (Feet): 5 Height (Inches): 2.00 Weight (Pounds): 88 Objective General Appearance: WD/WN, alert, confused. Neck: supple Cardiovascular: normal rate, regular rhythm Respiratory/Chest: chest wall non-tender, lungs clear, normal breath sounds Abdomen: normal bowel sounds, non tender, soft, no organomegaly Edema: no edema noted Arm (L), no edema noted Arm (R), no edema noted Leg (L), no edema noted Leg (R), no edema noted Pedal (L), no edema noted Pedal (R), no edema noted Generalized Neurologic: alert, disoriented Nate Beltran MD Nov 26, 2018 16:40
[2018-11-26] MEDS: Epoetin Alfa-EPBX (NON ESRD) 3000 units/ml vial SUBQ SCH (20:30)
[2018-11-27] VITALS (8 sets, daily range): BP systolic 140–156; BP diastolic 69–106
[2018-11-27] MEDS: D5NS 1,000 ML IV SCH ×2 (02:48→19:35)
--- NOTE | 2018-11-27 03:15 | Progress Note ---
DATE: 11/26/2018 CARDIOLOGY PROGRESS NOTE SUBJECTIVE: The patient has melena. Hemoglobin is dropping. Family member has not decided on aggressive care plan, may need G-tube and hemodialysis. OBJECTIVE: VITAL SIGNS: Blood pressure 132/70, pulse 95, respiratory rate 19, afebrile, and oxygen saturation 97% on room air. HEENT: Temporal wasting. Pale conjunctivae. LUNGS: Clear. CARDIAC: Regular rhythm and rate. Normal S1 and S2 with a 1/6 systolic murmur at base. ABDOMEN: Soft. No focal tenderness. EXTREMITIES: No edema. LABORATORY DATA: White count 12 and hemoglobin 6. Potassium 3.8, BUN 69, and creatinine 6.4. Pro-natriuretic peptide is 9500. IMPRESSION: 1. Acute gastrointestinal bleeding. 2. Severe anemia. 3. Chronic kidney disease, stage 5. 4. Hypertensive heart disease. 5. Acute on chronic diastolic congestive heart failure. 6. Severe protein-calorie malnutrition. 7. Acute on chronic diastolic congestive heart failure. PLAN: 1. Transfusion of packed red blood cells. 2. Proton pump inhibitor. 3. Hold on nutrition ____ hospice care. Otherwise hemodialysis ultrafiltration and G-tube for nutrition should be placed as soon as possible. Khadijah Bourne JOB#: [id number] CC:
[2018-11-27] MEDS: HydrALAZINE 50mg tab NG SCH ×4 (05:13→23:06)
[2018-11-27] MEDS: NovoLOG Insulin Flexpen SUBQ SCH ×4 (05:14→20:51)
[2018-11-27] MEDS: LORazepam Inj 2mg/ml 1ml IV PRN ×4 (08:03→23:38)
[2018-11-27] MEDS: Lactobacillus-GG tablet NG SCH ×3 (08:17→18:11)
[2018-11-27] MEDS: Doxazosin 1mg Tab ORAL SCH ×2 (08:17→18:11)
[2018-11-27] MEDS: Heparin 5000 units/ml inj SUBQ SCH ×2 (08:17→20:50)
[2018-11-27] MEDS: Renvela 800mg Pkt NG SCH (09:00)
[2018-11-27] MEDS: HYDROcodone/Acetamin 10/325 tab ORAL PRN (09:37)
[2018-11-27] MEDS: DiphenhydrAMINE 50mg/ml Inj IVP PRN ×2 (09:50→23:03)
--- NOTE | 2018-11-27 09:59 | General Progress Note ---
Assessment/Plan Problem List: (1) Anemia due to acute blood loss ICD Codes: D62 - Acute posthemorrhagic anemia SNOMED: 381976053 (2) Dementia ICD Codes: F03.90 - Unspecified dementia without behavioral disturbance SNOMED: 62093796 (3) Renal insufficiency ICD Codes: N28.9 - Disorder of kidney and ureter, unspecified SNOMED: 761632264, 460926620 (4) Abscess of right hip ICD Codes: L02.415 - Cutaneous abscess of right lower limb SNOMED: 527366 Status: stable, progressing Assessment/Plan: cont current rx monitor h/h and labs transfuse epo/iron replacement abx per id cont bailey for urinary retention encourage po family aware pt may need endoscopy if continued bleeding family getting second opinion about gt and HD from family physician in [place] message left with family about decision regarding HD and GT Subjective ROS Limited/Unobtainable: Yes Constitutional: Reports: malaise, weakness HEENT: Reports: no symptoms Cardiovascular: Reports: no symptoms Respiratory: Reports: no symptoms Gastrointestinal/Abdominal: Reports: difficulty swallowing, poor appetite Genitourinary: Reports: no symptoms Neurologic/Psychiatric: Reports: pre-existing deficit Endocrine: Reports: no symptoms Hematologic/Lymphatic: Reports: no symptoms Allergies: Coded Allergies: No Known Allergies (Unverified , 11/12/18) All Systems: reviewed and negative except above Subjective more awake and alert. agitated and confused. no more bleeding noted. s/p 2 units prbcs Objective Last 24 Hour Vital Signs Date Time Temp Pulse Resp B/P (MAP) Pulse Ox O2 Delivery O2 Flow Rate FiO2 11/27/18 08:17 92 145/106 11/27/18 08:00 98.2 92 18 145/106 (119) 96 11/27/18 05:13 156/85 11/27/18 04:00 98.1 95 18 156/85 (108) 95 11/27/18 02:20 98.1 93 18 153/81 (105) 95 11/27/18 01:55 98.0 88 17 150/70 (96) 96 11/27/18 01:14 98.1 94 17 151/86 (107) 95 11/26/18 23:43 140/75 11/26/18 23:40 98.0 95 17 146/85 (105) 96 11/26/18 23:20 98.1 93 17 140/75 (96) 96 11/26/18 20:57 Room Air 11/26/18 20:00 97.2 86 20 133/62 (85) 95 11/26/18 18:11 142/76 11/26/18 16:00 98.2 94 18 142/76 (98) 99 11/26/18 12:47 132/70 11/26/18 12:00 97.2 95 132/70 (90) Intake and Output 11/26/18 11/27/18 19:00 07:00 Intake Total 660 ml 795 ml Output Total 900 ml Balance 660 ml -105 ml Intake Oral 120 ml Free Water 200 ml IV Total 660 ml 420 ml Tube Feeding 35 ml Other 20 ml Output Urine Total 900 ml # Voids 1 # Bowel Movements 3 Height (Feet): 5 Height (Inches): 2.00 Weight (Pounds): 88 Objective General Appearance: WD/WN, alert, confused. Neck: supple Cardiovascular: normal rate, regular rhythm Respiratory/Chest: chest wall non-tender, lungs clear, normal breath sounds Abdomen: normal bowel sounds, non tender, soft, no organomegaly Edema: no edema noted Arm (L), no edema noted Arm (R), no edema noted Leg (L), no edema noted Leg (R), no edema noted Pedal (L), no edema noted Pedal (R), no edema noted Generalized Neurologic: alert, disoriented Nate Beltran MD Nov 27, 2018 09:59
[2018-11-27 11:03] LABS: BASOPHILS % (AUTO) 0.5 % (0.0-2.0); EOSINOPHILS % (AUTO) 0.9 % (0.0-3.0); HEMATOCRIT 27.6 % (37.0-47.0); HEMOGLOBIN 9.1 G/DL (12.0-16.0); LYMPHOCYTES % (AUTO) 35.9 % (20.0-45.0); MEAN CORPUSCULAR VOLUME 90 FL (80-99); MONOCYTES % (AUTO) 5.8 % (1.0-10.0); NEUTROPHILS % (AUTO) 56.9 % (45.0-75.0); PLATELET COUNT 300 K/UL (150-450); RED BLOOD COUNT 3.07 M/UL (4.20-5.40); WHITE BLOOD COUNT 11.4 K/UL (4.8-10.8)
--- NOTE | 2018-11-27 11:39 | Nephrology Progress Note ---
Assessment/Plan Problem List: (1) Abscess of right hip (2) Renal failure (ARF), acute on chronic (3) Urinary retention (4) Diabetes mellitus (5) Failure to thrive Assessment Renal failure: - Acute , due to meds- Obstruction.... - Chronic: Due to underlying ?HTN / DM ... Urinary Retention in ANJEL HyperGlycemia / DM / Proteinuria Anemia Right hip abcess UTI . Plan last Cr . ! Patient pulled out her femoral cath 11/21! dialysis 11/20 cancelled as family changed their mind previously monitor renal parameters bailey cath monitor I&O Keep BP and BS in check Avoid Nephrotoxics Antibiotics and surgical fu Urine studies Vanco level 24 on 11/16 has NGT , will start Nepro ? DC ?? comfort care - No code... family getting second opinion about gt and HD from family physician in [place] message left with family about decision regarding HD and GT Subjective ROS Limited/Unobtainable: No Constitutional: Reports: malaise Objective Objective Last 24 Hour Vital Signs Date Time Temp Pulse Resp B/P (MAP) Pulse Ox O2 Delivery O2 Flow Rate FiO2 11/27/18 09:00 Room Air 11/27/18 08:17 92 145/106 11/27/18 08:00 98.2 92 18 145/106 (119) 96 11/27/18 05:13 156/85 11/27/18 04:00 98.1 95 18 156/85 (108) 95 11/27/18 02:20 98.1 93 18 153/81 (105) 95 11/27/18 01:55 98.0 88 17 150/70 (96) 96 11/27/18 01:14 98.1 94 17 151/86 (107) 95 11/26/18 23:43 140/75 11/26/18 23:40 98.0 95 17 146/85 (105) 96 11/26/18 23:20 98.1 93 17 140/75 (96) 96 11/26/18 20:57 Room Air 11/26/18 20:00 97.2 86 20 133/62 (85) 95 11/26/18 18:11 142/76 11/26/18 16:00 98.2 94 18 142/76 (98) 99 11/26/18 12:47 132/70 11/26/18 12:00 97.2 95 132/70 (90) Intake and Output 11/26/18 11/27/18 18:59 06:59 Intake Total 720 ml 795 ml Output Total 900 ml Balance 720 ml -105 ml Intake Oral 120 ml Free Water 200 ml IV Total 720 ml 420 ml Tube Feeding 35 ml Other 20 ml Output Urine Total 900 ml # Voids 1 # Bowel Movements 3 Laboratory Tests 11/27/18 10:52: White Blood Count 11.4H, Red Blood Count 3.07L, Hemoglobin 9.1#L, Hematocrit 27.6#L, Mean Corpuscular Volume 90, Mean Corpuscular Hemoglobin 29.7, Mean Corpuscular Hemoglobin Concent 33.1, Red Cell Distribution Width 17.0H, Platelet Count 300, Mean Platelet Volume 5.2L, Neutrophils (%) (Auto) 56.9, Lymphocytes (%) (Auto) 35.9, Monocytes (%) (Auto) 5.8, Eosinophils (%) (Auto) 0.9, Basophils (%) (Auto) 0.5 Height (Feet): 5 Height (Inches): 2.00 Weight (Pounds): 88 General Appearance: agitated Cardiovascular: tachycardia Respiratory/Chest: decreased breath sounds Abdomen: distended Objective no change William Blackwood MD Nov 27, 2018 11:39
--- NOTE | 2018-11-27 13:17 | Surgery Progress Note ---
Surgery Progress Note Subjective Procedure Performed left femoral temporary hemodialysis catheter insertion Symptoms: voiding well, passing flatus, BM Objective Last 24 Hour Vital Signs Date Time Temp Pulse Resp B/P (MAP) Pulse Ox O2 Delivery O2 Flow Rate FiO2 11/27/18 12:00 98.3 78 18 140/69 (92) 97 11/27/18 12:00 140/69 11/27/18 09:00 Room Air 11/27/18 08:17 92 145/106 11/27/18 08:00 98.2 92 18 145/106 (119) 96 11/27/18 05:13 156/85 11/27/18 04:00 98.1 95 18 156/85 (108) 95 11/27/18 02:20 98.1 93 18 153/81 (105) 95 11/27/18 01:55 98.0 88 17 150/70 (96) 96 11/27/18 01:14 98.1 94 17 151/86 (107) 95 11/26/18 23:43 140/75 11/26/18 23:40 98.0 95 17 146/85 (105) 96 11/26/18 23:20 98.1 93 17 140/75 (96) 96 11/26/18 20:57 Room Air 11/26/18 20:00 97.2 86 20 133/62 (85) 95 11/26/18 18:11 142/76 11/26/18 16:00 98.2 94 18 142/76 (98) 99 I&O Intake and Output 11/26/18 11/27/18 19:00 07:00 Intake Total 660 ml 855 ml Output Total 900 ml Balance 660 ml -45 ml Intake Oral 120 ml Free Water 200 ml IV Total 660 ml 480 ml Tube Feeding 35 ml Other 20 ml Output Urine Total 900 ml # Voids 1 # Bowel Movements 3 Dressing: saturated Wound: clean Cardiovascular: RSR Respiratory: clear Abdomen: soft, non-tender, present bowel sounds, non-distended Extremities: edema, no tenderness, no cyanosis Laboratory Tests Test 11/27/18 10:52 White Blood Count 11.4 K/UL (4.8-10.8) H Red Blood Count 3.07 M/UL (4.20-5.40) L Hemoglobin 9.1 G/DL (12.0-16.0) #L Hematocrit 27.6 % (37.0-47.0) #L Mean Corpuscular Volume 90 FL (80-99) Mean Corpuscular Hemoglobin 29.7 PG (27.0-31.0) Mean Corpuscular Hemoglobin Concent 33.1 G/DL (32.0-36.0) Red Cell Distribution Width 17.0 % (11.6-14.8) H Platelet Count 300 K/UL (150-450) Mean Platelet Volume 5.2 FL (6.5-10.1) L Neutrophils (%) (Auto) 56.9 % (45.0-75.0) Lymphocytes (%) (Auto) 35.9 % (20.0-45.0) Monocytes (%) (Auto) 5.8 % (1.0-10.0) Eosinophils (%) (Auto) 0.9 % (0.0-3.0) Basophils (%) (Auto) 0.5 % (0.0-2.0) Assessment Post-op Diagnosis same Plan Problems: (1) Abscess of right hip Assessment & Plan: 78F with abscess of right hip, large, deep. on exam mainly looks like cellulitis but once abscess drained significant fluid it was apparent that it was much deeper. proper care necessary and unfortunately unable to get in contact with family. called daughter without reply. abscess needs drainage, washout and proper care. s/p drainage, debridement, washout improving since will likely need feeding tube since note tolerating enough diet needs nutrition to heal this wound overall wound much improved Periwound erythema and edema much improved. Wound bed significantly smaller and healing Patient more comfortable. -pending PEG placement - family decision -HD line placed - family held on HD - patient removed HD line -Nursing to do packing and dressing TID -IV abx -will follow with recs -thank you Camilo James Nov 27, 2018 13:16
--- NOTE | 2018-11-27 21:53 | General Progress Note ---
Assessment/Plan Status: stable, progressing Assessment/Plan: Assessment - dysphagia - resolved, tolerating po diet - renal failure - (R) hip infection - bed bound - low albumin Recommendation - Conservative Rx - careful po diet as tolerated - continue current level of care - Family to make decision re level of care Subjective Allergies: Coded Allergies: No Known Allergies (Unverified , 11/12/18) Subjective above noted started on po diet ate well per RN report Objective Last 24 Hour Vital Signs Date Time Temp Pulse Resp B/P (MAP) Pulse Ox O2 Delivery O2 Flow Rate FiO2 11/27/18 21:31 Room Air 11/27/18 20:00 96.5 90 20 150/70 (96) 95 11/27/18 18:11 140/69 11/27/18 16:00 98.3 78 18 140/69 (92) 97 11/27/18 12:00 98.3 78 18 140/69 (92) 97 11/27/18 12:00 140/69 11/27/18 09:00 Room Air 11/27/18 08:17 92 145/106 11/27/18 08:00 98.2 92 18 145/106 (119) 96 11/27/18 05:13 156/85 11/27/18 04:00 98.1 95 18 156/85 (108) 95 11/27/18 02:20 98.1 93 18 153/81 (105) 95 11/27/18 01:55 98.0 88 17 150/70 (96) 96 11/27/18 01:14 98.1 94 17 151/86 (107) 95 11/26/18 23:43 140/75 11/26/18 23:40 98.0 95 17 146/85 (105) 96 11/26/18 23:20 98.1 93 17 140/75 (96) 96 Intake and Output 11/26/18 11/27/18 19:00 07:00 Intake Total 660 ml 855 ml Output Total 900 ml Balance 660 ml -45 ml Intake Oral 120 ml Free Water 200 ml IV Total 660 ml 480 ml Tube Feeding 35 ml Other 20 ml Output Urine Total 900 ml # Voids 1 # Bowel Movements 3 Laboratory Tests 11/27/18 10:52: White Blood Count 11.4H, Red Blood Count 3.07L, Hemoglobin 9.1#L, Hematocrit 27.6#L, Mean Corpuscular Volume 90, Mean Corpuscular Hemoglobin 29.7, Mean Corpuscular Hemoglobin Concent 33.1, Red Cell Distribution Width 17.0H, Platelet Count 300, Mean Platelet Volume 5.2L, Neutrophils (%) (Auto) 56.9, Lymphocytes (%) (Auto) 35.9, Monocytes (%) (Auto) 5.8, Eosinophils (%) (Auto) 0.9, Basophils (%) (Auto) 0.5 Height (Feet): 5 Height (Inches): 2.00 Weight (Pounds): 88 Objective Thin woman NCAT Neck supple supple chest CTA RRR Abd Soft, NT, ND no edema Cristy Elizondo MD Nov 27, 2018 21:53
[2018-11-28] VITALS: BP 126/67
--- NOTE | 2018-11-28 02:45 | Progress Note ---
DATE: 11/27/2018 CARDIOLOGY PROGRESS NOTE SUBJECTIVE: GI bleeding was noted. Transfusion x2 units were given. Bleeding appears to have stopped at this time. Blood pressure is still a high normal range around 153/81, heart rate 93, and respiratory rate 18. No fevers. OBJECTIVE: LUNGS: With few rales. CARDIAC: Regular rhythm and rate. Normal S1, S2 with a fourth heart sound. ABDOMEN: Soft. No focal tenderness. EXTREMITIES: With 1+ edema. LABORATORY DATA: White count 11.4 and hemoglobin 9.1 post transfusion. Platelet count is 300,000. IMPRESSION: 1. Gastrointestinal bleeding. 2. Anemia. 3. Chronic kidney disease stage 5. 4. Acute on chronic diastolic congestive heart failure. 5. Hypertensive heart disease with history of malignant range blood pressure. 6. Severe protein-calorie malnutrition. 7. Cerebrovascular disease with dementia. PLAN: 1. Monitor hemoglobin. 2. Transfuse as needed. 3. Nutrition by NG tube. 4. Continue current antihypertensive and cardiovascular regimen. 5. P.r.n. clonidine for blood pressure spikes. 6. Await family decision regarding long-term management and intensity of care. Abel Stubbs M.D. DR: ALICIA JOB#: [id number] CC:
[2018-11-28] MEDS: DiphenhydrAMINE 50mg/ml Inj IVP PRN ×2 (03:23→12:47)
[2018-11-28 04:00] VITALS: BP 138/71
[2018-11-28] MEDS: HydrALAZINE 50mg tab NG SCH ×4 (05:37→23:21)
[2018-11-28] MEDS: NovoLOG Insulin Flexpen SUBQ SCH ×4 (05:56→21:04)
[2018-11-28 07:04] LABS: HEMATOCRIT 30.6 % (37.0-47.0); HEMOGLOBIN 9.9 G/DL (12.0-16.0); MEAN CORPUSCULAR VOLUME 89 FL (80-99); PLATELET COUNT 294 K/UL (150-450); RED BLOOD COUNT 3.44 M/UL (4.20-5.40); RED CELL DISTRIBUTION WIDTH 17.4 % (11.6-14.8); WHITE BLOOD COUNT 6.2 K/UL (4.8-10.8)
[2018-11-28 08:00] VITALS: BP 142/71
[2018-11-28] MEDS: Lactobacillus-GG tablet NG SCH ×3 (08:09→17:07)
[2018-11-28] MEDS: Doxazosin 1mg Tab ORAL SCH ×2 (08:09→17:07)
[2018-11-28] MEDS: Heparin 5000 units/ml inj SUBQ SCH ×2 (08:11→21:03)
[2018-11-28] MEDS: HYDROcodone/Acetamin 10/325 tab ORAL PRN (08:37)
[2018-11-28] MEDS: LORazepam Inj 2mg/ml 1ml IV PRN ×2 (09:34→16:28)
--- NOTE | 2018-11-28 10:01 | General Progress Note ---
Assessment/Plan Problem List: (1) Anemia due to acute blood loss ICD Codes: D62 - Acute posthemorrhagic anemia SNOMED: 664132016 (2) Dementia ICD Codes: F03.90 - Unspecified dementia without behavioral disturbance SNOMED: 24650262 (3) Renal insufficiency ICD Codes: N28.9 - Disorder of kidney and ureter, unspecified SNOMED: 353404754, 975334838 (4) Abscess of right hip ICD Codes: L02.415 - Cutaneous abscess of right lower limb SNOMED: 548571 Status: stable, progressing Assessment/Plan: cont current rx monitor h/h and labs monitor for bleeding transfuse epo/iron replacement abx per id cont bailey for urinary retention encourage po family aware pt may need endoscopy if continued bleeding family getting second opinion about gt and HD from family physician in [place] message left with family about decision regarding HD and GT Subjective ROS Limited/Unobtainable: Yes Constitutional: Reports: weakness HEENT: Reports: no symptoms Cardiovascular: Reports: no symptoms Respiratory: Reports: no symptoms Gastrointestinal/Abdominal: Reports: difficulty swallowing Genitourinary: Reports: no symptoms Neurologic/Psychiatric: Reports: pre-existing deficit, seizure Endocrine: Reports: no symptoms Hematologic/Lymphatic: Reports: anemia Allergies: Coded Allergies: No Known Allergies (Unverified , 11/12/18) All Systems: reviewed and negative except above Subjective more awake and alert. agitated and confused. no more bleeding noted. per staff eating better. family told nurse they would want HD Objective Last 24 Hour Vital Signs Date Time Temp Pulse Resp B/P (MAP) Pulse Ox O2 Delivery O2 Flow Rate FiO2 11/28/18 09:00 Room Air 11/28/18 08:09 66 142/71 11/28/18 08:00 98.6 66 17 142/71 (94) 99 11/28/18 05:37 138/71 11/28/18 04:00 97.4 72 19 138/71 (93) 98 11/28/18 00:00 97.3 79 19 126/67 (86) 98 11/27/18 23:06 150/70 11/27/18 21:31 Room Air 11/27/18 20:00 96.5 90 20 150/70 (96) 95 11/27/18 18:11 140/69 11/27/18 16:00 98.3 78 18 140/69 (92) 97 11/27/18 12:00 98.3 78 18 140/69 (92) 97 11/27/18 12:00 140/69 Intake and Output 11/27/18 11/28/18 19:00 07:00 Intake Total 800 ml 1535 ml Output Total 600 ml 1000 ml Balance 200 ml 535 ml Intake Oral 620 ml 620 ml Free Water 200 ml IV Total 180 ml 660 ml Tube Feeding 35 ml Other 20 ml Output Urine Total 600 ml 1000 ml # Voids 1 # Bowel Movements 3 Laboratory Tests 11/27/18 10:52: White Blood Count 11.4H, Red Blood Count 3.07L, Hemoglobin 9.1#L, Hematocrit 27.6#L, Mean Corpuscular Volume 90, Mean Corpuscular Hemoglobin 29.7, Mean Corpuscular Hemoglobin Concent 33.1, Red Cell Distribution Width 17.0H, Platelet Count 300, Mean Platelet Volume 5.2L, Neutrophils (%) (Auto) 56.9, Lymphocytes (%) (Auto) 35.9, Monocytes (%) (Auto) 5.8, Eosinophils (%) (Auto) 0.9, Basophils (%) (Auto) 0.5 11/28/18 06:00: White Blood Count 6.2, Red Blood Count 3.44L, Hemoglobin 9.9L, Hematocrit 30.6L , Mean Corpuscular Volume 89, Mean Corpuscular Hemoglobin 28.8, Mean Corpuscular Hemoglobin Concent 32.3, Red Cell Distribution Width 17.4H, Platelet Count 294, Mean Platelet Volume 5.2L, Neutrophils (%) (Auto) , Lymphocytes (%) (Auto) , Monocytes (%) (Auto) , Eosinophils (%) (Auto) , Basophils (%) (Auto) , Differential Total Cells Counted 100, Neutrophils % ( Manual) 31L, Lymphocytes % (Manual) 54H, Monocytes % (Manual) 12H, Eosinophils % (Manual) 3, Basophils % (Manual) 0, Band Neutrophils 0, Platelet Estimate Adequate, Platelet Morphology Normal, Anisocytosis 1+ Height (Feet): 5 Height (Inches): 2.00 Weight (Pounds): 88 Objective General Appearance: WD/WN, alert, confused. Neck: supple Cardiovascular: normal rate, regular rhythm Respiratory/Chest: chest wall non-tender, lungs clear, normal breath sounds Abdomen: normal bowel sounds, non tender, soft, no organomegaly Edema: no edema noted Arm (L), no edema noted Arm (R), no edema noted Leg (L), no edema noted Leg (R), no edema noted Pedal (L), no edema noted Pedal (R), no edema noted Generalized Neurologic: alert, disoriented Nate Beltran MD Nov 28, 2018 10:01
[2018-11-28 12:00] VITALS: BP 160/68
[2018-11-28] MEDS: D5NS 1,000 ML IV SCH (12:22)
--- NOTE | 2018-11-28 12:46 | Infectious Diseases Prog Note ---
Assessment/Plan Assessment/Plan IMPRESSION: 1. Abscess, right hip status post incision and drainage. 2. Acute on chronic renal failure. 3. Urinary retention. 4. Failure to thrive and cachexia. 5. Dementia with behavioral problem. 6. Hypertension. 7. ESRD RECOMMENDATIONS: Observe off antibiotic Subjective ROS Limited/Unobtainable: Yes Respiratory: Reports: dry cough Gastrointestinal/Abdominal: Reports: other - improved PO intake Neurologic: Reports: confusion, other - on restraint Allergies: Coded Allergies: No Known Allergies (Unverified , 11/12/18) Objective Vital Signs Last 24 Hour Vital Signs Date Time Temp Pulse Resp B/P (MAP) Pulse Ox O2 Delivery O2 Flow Rate FiO2 11/28/18 12:22 160/68 11/28/18 12:00 98.4 81 17 160/68 (98) 99 11/28/18 09:00 Room Air 11/28/18 08:09 66 142/71 11/28/18 08:00 98.6 66 17 142/71 (94) 99 11/28/18 05:37 138/71 11/28/18 04:00 97.4 72 19 138/71 (93) 98 11/28/18 00:00 97.3 79 19 126/67 (86) 98 11/27/18 23:06 150/70 11/27/18 21:31 Room Air 11/27/18 20:00 96.5 90 20 150/70 (96) 95 11/27/18 18:11 140/69 11/27/18 16:00 98.3 78 18 140/69 (92) 97 Height (Feet): 5 Height (Inches): 2.00 Weight (Pounds): 88 General Appearance: cachetic HEENT: mucous membranes moist Respiratory/Chest: lungs clear Cardiovascular: normal rate Abdomen: soft, non tender Extremities: no edema Neurologic/Psychiatric: disoriented Musculoskeletal: atrophy Laboratory Tests Test 11/28/18 06:00 White Blood Count 6.2 K/UL (4.8-10.8) Red Blood Count 3.44 M/UL (4.20-5.40) L Hemoglobin 9.9 G/DL (12.0-16.0) L Hematocrit 30.6 % (37.0-47.0) L Mean Corpuscular Volume 89 FL (80-99) Mean Corpuscular Hemoglobin 28.8 PG (27.0-31.0) Mean Corpuscular Hemoglobin Concent 32.3 G/DL (32.0-36.0) Red Cell Distribution Width 17.4 % (11.6-14.8) H Platelet Count 294 K/UL (150-450) Mean Platelet Volume 5.2 FL (6.5-10.1) L Neutrophils (%) (Auto) % (45.0-75.0) Lymphocytes (%) (Auto) % (20.0-45.0) Monocytes (%) (Auto) % (1.0-10.0) Eosinophils (%) (Auto) % (0.0-3.0) Basophils (%) (Auto) % (0.0-2.0) Differential Total Cells Counted 100 Neutrophils % (Manual) 31 % (45-75) L Lymphocytes % (Manual) 54 % (20-45) H Monocytes % (Manual) 12 % (1-10) H Eosinophils % (Manual) 3 % (0-3) Basophils % (Manual) 0 % (0-2) Band Neutrophils 0 % (0-8) Platelet Estimate Adequate Platelet Morphology Normal Anisocytosis 1+ Current Medications Medications (Trade) Dose Ordered Sig/Javier Route PRN Reason Start Time Stop Time Status Last Admin Dose Admin Acetaminophen (Tylenol) 650 mg Q4H PRN ORAL Mild Pain/Temp > 100.5 11/12/18 20:00 12/12/18 19:59 11/14/18 18:39 Acetaminophen/ Hydrocodone Bitart ([place] 10/325) 1 tab Q4H PRN ORAL PAIN 4-10 11/23/18 08:45 11/30/18 08:44 11/28/18 08:37 Amlodipine Besylate (Norvasc) 10 mg DAILY ORAL 11/20/18 11:00 12/20/18 10:59 11/28/18 08:09 Dextrose (Dextrose 50%) 25 ml Q30M PRN IV Hypoglycemia 11/18/18 16:00 12/18/18 15:59 Dextrose (Dextrose 50%) 50 ml Q30M PRN IV Hypoglycemia 11/18/18 16:00 12/18/18 15:59 Dextrose/Sodium Chloride 1,000 ml @ 60 mls/hr [id number] IV 11/25/18 17:28 12/25/18 17:27 11/28/18 12:22 Diphenhydramine HCl (Benadryl) 25 mg Q4H PRN IVP Itching 11/23/18 19:52 12/23/18 19:51 11/28/18 03:23 Doxazosin Mesylate (Cardura) 2 mg BID ORAL 11/25/18 09:00 12/25/18 08:59 11/28/18 08:09 Epoetin Thomas (Epoetin Thomas-EPBX(NON ESRD)) 3,000 unit [id number]-[id number]-THU SUBQ 11/15/18 21:00 12/15/18 20:59 11/26/18 20:30 Heparin Sodium (Porcine) (Heparin 5000 units/ml) 5,000 units EVERY 12 HOURS SUBQ 11/19/18 21:30 12/19/18 21:29 11/28/18 08:11 Hydralazine HCl (Apresoline) 50 mg EVERY 6 HOURS NG 11/21/18 18:00 12/19/18 13:33 11/28/18 12:22 Insulin Aspart (NovoLOG) AC+HS SUBQ 11/27/18 11:30 12/18/18 20:59 11/28/18 11:40 Lactobacillus Acidophilus (Culturelle) 1 tab THREE TIMES A DAY NG 11/21/18 18:00 12/21/18 17:59 11/28/18 12:22 Lansoprazole (Prevacid) 30 mg BID NG 11/19/18 18:00 12/19/18 17:59 11/28/18 08:09 Loperamide HCl (Imodium) 2 mg Q6H PRN NG Diarrhea 11/21/18 14:45 12/21/18 14:44 Lorazepam (Ativan 2mg/ml 1ml) 1 mg Q4H PRN IV For Anxiety 11/27/18 07:00 12/04/18 06:59 11/28/18 09:34 Mirtazapine (Remeron) 15 mg BEDTIME ORAL 11/19/18 21:30 12/19/18 21:29 11/27/18 20:49 Ondansetron HCl (Zofran) 0.5 mg Q8H PRN IVP Nausea & Vomiting 11/12/18 20:00 12/12/18 19:59 Quetiapine Fumarate (SEROquel) 100 mg QHS ORAL 11/19/18 21:30 12/19/18 21:29 11/27/18 20:49 Sevelamer Carbonate (Renvela) 800 mg THREE TIMES A DAY ORAL 11/27/18 13:00 12/27/18 12:59 11/28/18 12:22 Warren Parks MD Nov 28, 2018 12:46
--- NOTE | 2018-11-28 13:23 | Nephrology Progress Note ---
Assessment/Plan Problem List: (1) Abscess of right hip (2) Renal failure (ARF), acute on chronic (3) Urinary retention (4) Diabetes mellitus (5) Failure to thrive Assessment Renal failure: - Acute , due to meds- Obstruction.... - Chronic: Due to underlying ?HTN / DM ... Urinary Retention in ANJEL HyperGlycemia / DM / Proteinuria Anemia Right hip abcess UTI . Plan last Cr . ! Patient pulled out her femoral cath 11/21! dialysis 11/20 cancelled as family changed their mind previously monitor renal parameters bailey cath monitor I&O Keep BP and BS in check Avoid Nephrotoxics Antibiotics and surgical fu Urine studies Vanco level 24 on 11/16 has NGT , will start Nepro ? DC ?? comfort care - No code... family getting second opinion about gt and HD from family physician in [place] message left with family about decision regarding HD and GT Subjective ROS Limited/Unobtainable: No Constitutional: Reports: malaise, weakness Objective Objective Last 24 Hour Vital Signs Date Time Temp Pulse Resp B/P (MAP) Pulse Ox O2 Delivery O2 Flow Rate FiO2 11/28/18 12:22 160/68 11/28/18 12:00 98.4 81 17 160/68 (98) 99 11/28/18 09:00 Room Air 11/28/18 08:09 66 142/71 11/28/18 08:00 98.6 66 17 142/71 (94) 99 11/28/18 05:37 138/71 11/28/18 04:00 97.4 72 19 138/71 (93) 98 11/28/18 00:00 97.3 79 19 126/67 (86) 98 11/27/18 23:06 150/70 11/27/18 21:31 Room Air 11/27/18 20:00 96.5 90 20 150/70 (96) 95 11/27/18 18:11 140/69 11/27/18 16:00 98.3 78 18 140/69 (92) 97 Intake and Output 11/27/18 11/28/18 19:00 07:00 Intake Total 800 ml 1595 ml Output Total 600 ml 1000 ml Balance 200 ml 595 ml Intake Oral 620 ml 620 ml Free Water 200 ml IV Total 180 ml 720 ml Tube Feeding 35 ml Other 20 ml Output Urine Total 600 ml 1000 ml # Voids 1 # Bowel Movements 3 Laboratory Tests 11/28/18 06:00: White Blood Count 6.2, Red Blood Count 3.44L, Hemoglobin 9.9L, Hematocrit 30.6L , Mean Corpuscular Volume 89, Mean Corpuscular Hemoglobin 28.8, Mean Corpuscular Hemoglobin Concent 32.3, Red Cell Distribution Width 17.4H, Platelet Count 294, Mean Platelet Volume 5.2L, Neutrophils (%) (Auto) , Lymphocytes (%) (Auto) , Monocytes (%) (Auto) , Eosinophils (%) (Auto) , Basophils (%) (Auto) , Differential Total Cells Counted 100, Neutrophils % ( Manual) 31L, Lymphocytes % (Manual) 54H, Monocytes % (Manual) 12H, Eosinophils % (Manual) 3, Basophils % (Manual) 0, Band Neutrophils 0, Platelet Estimate Adequate, Platelet Morphology Normal, Anisocytosis 1+ Height (Feet): 5 Height (Inches): 2.00 Weight (Pounds): 88 General Appearance: no apparent distress Objective no change William Blackwood MD Nov 28, 2018 13:22
--- NOTE | 2018-11-28 14:08 | Surgery Progress Note ---
Surgery Progress Note Subjective Procedure Performed left femoral temporary hemodialysis catheter insertion Additional Comments eating better. more comfortable. wound improving Objective Last 24 Hour Vital Signs Date Time Temp Pulse Resp B/P (MAP) Pulse Ox O2 Delivery O2 Flow Rate FiO2 11/28/18 12:22 160/68 11/28/18 12:00 98.4 81 17 160/68 (98) 99 11/28/18 09:00 Room Air 11/28/18 08:09 66 142/71 11/28/18 08:00 98.6 66 17 142/71 (94) 99 11/28/18 05:37 138/71 11/28/18 04:00 97.4 72 19 138/71 (93) 98 11/28/18 00:00 97.3 79 19 126/67 (86) 98 11/27/18 23:06 150/70 11/27/18 21:31 Room Air 11/27/18 20:00 96.5 90 20 150/70 (96) 95 11/27/18 18:11 140/69 11/27/18 16:00 98.3 78 18 140/69 (92) 97 I&O Intake and Output 11/27/18 11/28/18 19:00 07:00 Intake Total 800 ml 1595 ml Output Total 600 ml 1000 ml Balance 200 ml 595 ml Intake Oral 620 ml 620 ml Free Water 200 ml IV Total 180 ml 720 ml Tube Feeding 35 ml Other 20 ml Output Urine Total 600 ml 1000 ml # Voids 1 # Bowel Movements 3 Dressing: saturated Wound: clean Cardiovascular: RSR Respiratory: clear Abdomen: soft, flat, non-tender, present bowel sounds, non-distended Extremities: edema, no cyanosis Laboratory Tests Test 11/28/18 06:00 White Blood Count 6.2 K/UL (4.8-10.8) Red Blood Count 3.44 M/UL (4.20-5.40) L Hemoglobin 9.9 G/DL (12.0-16.0) L Hematocrit 30.6 % (37.0-47.0) L Mean Corpuscular Volume 89 FL (80-99) Mean Corpuscular Hemoglobin 28.8 PG (27.0-31.0) Mean Corpuscular Hemoglobin Concent 32.3 G/DL (32.0-36.0) Red Cell Distribution Width 17.4 % (11.6-14.8) H Platelet Count 294 K/UL (150-450) Mean Platelet Volume 5.2 FL (6.5-10.1) L Neutrophils (%) (Auto) % (45.0-75.0) Lymphocytes (%) (Auto) % (20.0-45.0) Monocytes (%) (Auto) % (1.0-10.0) Eosinophils (%) (Auto) % (0.0-3.0) Basophils (%) (Auto) % (0.0-2.0) Differential Total Cells Counted 100 Neutrophils % (Manual) 31 % (45-75) L Lymphocytes % (Manual) 54 % (20-45) H Monocytes % (Manual) 12 % (1-10) H Eosinophils % (Manual) 3 % (0-3) Basophils % (Manual) 0 % (0-2) Band Neutrophils 0 % (0-8) Platelet Estimate Adequate Platelet Morphology Normal Anisocytosis 1+ Assessment Post-op Diagnosis same Plan Problems: (1) Abscess of right hip Assessment & Plan: 78F with abscess of right hip, large, deep. on exam mainly looks like cellulitis but once abscess drained significant fluid it was apparent that it was much deeper. proper care necessary and unfortunately unable to get in contact with family. called daughter without reply. abscess needs drainage, washout and proper care. s/p drainage, debridement, washout improving since will likely need feeding tube since note tolerating enough diet needs nutrition to heal this wound overall wound much improved Periwound erythema and edema much improved. Wound bed significantly smaller and healing Patient more comfortable. -pending PEG placement - family decision -HD line placed - family held on HD - patient removed HD line -Nursing to do packing and dressing TID -IV abx -will follow with recs -thank you Camilo James Nov 28, 2018 14:08
[2018-11-28 16:00] VITALS: BP 134/76
[2018-11-28 20:00] VITALS: BP 126/66
--- NOTE | 2018-11-28 20:36 | General Progress Note ---
Assessment/Plan Status: stable, progressing Assessment/Plan: Assessment - dysphagia - resolved, tolerating po diet - renal failure - (R) hip infection - bed bound - low albumin Recommendation - Conservative Rx - careful po diet as tolerated - continue current level of care - Family to make decision re level of care Subjective Allergies: Coded Allergies: No Known Allergies (Unverified , 11/12/18) Subjective above noted started on po diet ate well per RN report Objective Last 24 Hour Vital Signs Date Time Temp Pulse Resp B/P (MAP) Pulse Ox O2 Delivery O2 Flow Rate FiO2 11/28/18 17:07 134/76 11/28/18 16:00 98.1 77 18 134/76 (95) 98 11/28/18 12:22 160/68 11/28/18 12:00 98.4 81 17 160/68 (98) 99 11/28/18 09:00 Room Air 11/28/18 08:09 66 142/71 11/28/18 08:00 98.6 66 17 142/71 (94) 99 11/28/18 05:37 138/71 11/28/18 04:00 97.4 72 19 138/71 (93) 98 11/28/18 00:00 97.3 79 19 126/67 (86) 98 11/27/18 23:06 150/70 11/27/18 21:31 Room Air Intake and Output 11/27/18 11/28/18 19:00 07:00 Intake Total 800 ml 1595 ml Output Total 600 ml 1000 ml Balance 200 ml 595 ml Intake Oral 620 ml 620 ml Free Water 200 ml IV Total 180 ml 720 ml Tube Feeding 35 ml Other 20 ml Output Urine Total 600 ml 1000 ml # Voids 1 # Bowel Movements 3 Laboratory Tests 11/28/18 06:00: White Blood Count 6.2, Red Blood Count 3.44L, Hemoglobin 9.9L, Hematocrit 30.6L , Mean Corpuscular Volume 89, Mean Corpuscular Hemoglobin 28.8, Mean Corpuscular Hemoglobin Concent 32.3, Red Cell Distribution Width 17.4H, Platelet Count 294, Mean Platelet Volume 5.2L, Neutrophils (%) (Auto) , Lymphocytes (%) (Auto) , Monocytes (%) (Auto) , Eosinophils (%) (Auto) , Basophils (%) (Auto) , Differential Total Cells Counted 100, Neutrophils % ( Manual) 31L, Lymphocytes % (Manual) 54H, Monocytes % (Manual) 12H, Eosinophils % (Manual) 3, Basophils % (Manual) 0, Band Neutrophils 0, Platelet Estimate Adequate, Platelet Morphology Normal, Anisocytosis 1+ Height (Feet): 5 Height (Inches): 2.00 Weight (Pounds): 88 Objective Thin woman NCAT Neck supple supple chest CTA RRR Abd Soft, NT, ND no edema Cristy Elizondo MD Nov 28, 2018 20:36
[2018-11-29] VITALS (7 sets, daily range): BP systolic 129–153; BP diastolic 64–77
[2018-11-29] MEDS: DiphenhydrAMINE 50mg/ml Inj IVP PRN ×3 (02:29→18:45)
[2018-11-29] MEDS: LORazepam Inj 2mg/ml 1ml IV PRN ×2 (02:29→15:53)
--- NOTE | 2018-11-29 03:15 | Progress Note ---
DATE: 11/28/2018 CARDIOLOGY PROGRESS NOTE SUBJECTIVE: Awake and alert. Some agitation and confusion. No more bleeding. Oral intake fair. Still has NG tube. Family members considering long-term dialysis. OBJECTIVE: VITAL SIGNS: Blood pressure 142/71, pulse 66, respirations 17, and afebrile. LUNGS: With diminished breath sounds. CARDIAC: Regular rhythm and rate. Normal S1, S2 with a 1/6 systolic murmur at apex. ABDOMEN: Soft, nontender. EXTREMITIES: With dependent edema. Marroquin catheter in place. IMPRESSION: 1. Obstructive uropathy. 2. Renal failure. 3. Gastrointestinal bleeding. 4. Severe protein-calorie malnutrition. 5. Hypertensive heart disease. 6. Acute on chronic diastolic congestive heart failure. 7. Cerebrovascular disease with dementia. PLAN: Need to finalize family member decisions regarding intensity of care and proceed with hemodialysis ultrafiltration and probable gastrostomy tube placement to stabilize for outpatient care, otherwise with comfort care goals can be pursued with DNR and possibly hospice. Abel Stubbs M.D. DR: EMRE JOB#: [id number] CC:
[2018-11-29] MEDS: D5NS 1,000 ML IV SCH ×2 (04:01→21:37)
[2018-11-29] MEDS: HydrALAZINE 50mg tab NG SCH ×3 (05:12→17:29)
[2018-11-29] MEDS: NovoLOG Insulin Flexpen SUBQ SCH ×4 (06:03→21:43)
--- NOTE | 2018-11-29 07:39 | General Progress Note ---
Assessment/Plan Problem List: (1) Anemia due to acute blood loss ICD Codes: D62 - Acute posthemorrhagic anemia SNOMED: 296402782 (2) Dementia ICD Codes: F03.90 - Unspecified dementia without behavioral disturbance SNOMED: 60485377 (3) Renal insufficiency ICD Codes: N28.9 - Disorder of kidney and ureter, unspecified SNOMED: 674100715, 069885873 (4) Abscess of right hip ICD Codes: L02.415 - Cutaneous abscess of right lower limb SNOMED: 380594 Status: stable, progressing Assessment/Plan: cont current rx monitor for bleeding follow up labs PPI rx cont wound care/packing d/w son. no plans for HD or feeding tube(pt is eating well) Subjective ROS Limited/Unobtainable: No Constitutional: Reports: malaise, weakness HEENT: Reports: no symptoms Cardiovascular: Reports: no symptoms Respiratory: Reports: no symptoms Gastrointestinal/Abdominal: Reports: no symptoms Genitourinary: Reports: no symptoms Neurologic/Psychiatric: Reports: pre-existing deficit Endocrine: Reports: no symptoms Hematologic/Lymphatic: Reports: anemia Allergies: Coded Allergies: No Known Allergies (Unverified , 11/12/18) All Systems: reviewed and negative except above Subjective hypothermic this morning. eating better. no bleeding noted. Objective Last 24 Hour Vital Signs Date Time Temp Pulse Resp B/P (MAP) Pulse Ox O2 Delivery O2 Flow Rate FiO2 11/29/18 06:55 94.0 11/29/18 06:05 92.1 11/29/18 05:12 153/77 11/29/18 05:00 92.0 11/29/18 04:00 75 18 153/77 (102) 98 11/29/18 01:00 94.1 11/29/18 00:00 71 18 147/75 (99) 96 11/28/18 23:21 147/75 11/28/18 21:00 Room Air 11/28/18 20:00 98.3 70 18 126/66 (86) 97 11/28/18 17:07 134/76 11/28/18 16:00 98.1 77 18 134/76 (95) 98 11/28/18 12:22 160/68 11/28/18 12:00 98.4 81 17 160/68 (98) 99 11/28/18 09:00 Room Air 11/28/18 08:09 66 142/71 11/28/18 08:00 98.6 66 17 142/71 (94) 99 Intake and Output 11/28/18 11/29/18 18:59 06:59 Intake Total 720 ml 420 ml Output Total 400 ml 400 ml Balance 320 ml 20 ml IV Total 720 ml 420 ml Output Urine Total 400 ml 400 ml Height (Feet): 5 Height (Inches): 2.00 Weight (Pounds): 88 Objective General Appearance: WD/WN, alert, confused. Neck: supple Cardiovascular: normal rate, regular rhythm Respiratory/Chest: chest wall non-tender, lungs clear, normal breath sounds Abdomen: normal bowel sounds, non tender, soft, no organomegaly Edema: no edema noted Arm (L), no edema noted Arm (R), no edema noted Leg (L), no edema noted Leg (R), no edema noted Pedal (L), no edema noted Pedal (R), no edema noted Generalized Neurologic: alert, disoriented Nate Beltran MD Nov 29, 2018 07:39
[2018-11-29 07:52] LABS: BASOPHILS % (AUTO) 1.5 % (0.0-2.0); EOSINOPHILS % (AUTO) 3.9 % (0.0-3.0); HEMATOCRIT 28.1 % (37.0-47.0); HEMOGLOBIN 9.1 G/DL (12.0-16.0); LYMPHOCYTES % (AUTO) 44.9 % (20.0-45.0); MEAN CORPUSCULAR VOLUME 90 FL (80-99); MONOCYTES % (AUTO) 7.7 % (1.0-10.0); PLATELET COUNT 298 K/UL (150-450); RED BLOOD COUNT 3.12 M/UL (4.20-5.40); RED CELL DISTRIBUTION WIDTH 17.4 % (11.6-14.8); WHITE BLOOD COUNT 4.3 K/UL (4.8-10.8)
[2018-11-29 08:17] LABS: ALANINE AMINOTRANSFERASE 21 U/L (12-78); ALBUMIN 1.8 G/DL (3.4-5.0); ALBUMIN/GLOBULIN RATIO 0.5 (1.0-2.7); ALKALINE PHOSPHATASE 72 U/L (46-116); ANION GAP 10 mmol/L (5-15); ASPARTATE AMINO TRANSFERASE 16 U/L (15-37); BILIRUBIN,TOTAL 0.2 MG/DL (0.2-1.0); BLOOD UREA NITROGEN 47 mg/dL (7-18); CALCIUM 8.7 MG/DL (8.5-10.1); CARBON DIOXIDE 19 MMOL/L (21-32); CHLORIDE 118 MMOL/L (98-107); CREATININE 5.2 MG/DL (0.55-1.30); POTASSIUM 3.2 MMOL/L (3.5-5.1); SODIUM 147 MMOL/L (136-145)
[2018-11-29] MEDS: Heparin 5000 units/ml inj SUBQ SCH ×2 (09:00→21:42)
[2018-11-29] MEDS: Lactobacillus-GG tablet NG SCH ×3 (09:00→17:29)
[2018-11-29] MEDS: Doxazosin 1mg Tab ORAL SCH ×2 (09:00→17:30)
--- NOTE | 2018-11-29 09:47 | Cardiology Report ---
APPROVED REPORT EXAM: Two-dimensional and M-mode echocardiogram with Doppler and color Doppler. INDICATION C.A.D M-Mode DIMENSIONS IVSd1.2 (0.7-1.1cm)Left Atrium (MM)3.4 (1.6-4.0cm) LVDd4.5 (3.5-5.6cm)Aortic Root2.5 (2.0-3.7cm) PWd1.0 (0.7-1.1cm)Aortic Cusp Exc.1.8 (1.5-2.0cm) IVSs1.5 cm LVDs3.2 (2.5-4.0cm) PWs1.3 cm echnically difficult study due to combative patient . Normal left ventricular chamber size, systolic function and wall motion to extent visualized. Left ventricular ejection fraction estimated to be 60-65%. Mild left ventricular hypertrophy by 2-D. Anterior Echo-free space, may be due to pericardial fat or effusion. All other cardiac chamber sizes are within normal limits. Aortic valve calcification with normal cusp excursion . Mildly thickened mitral valve leaflets with normal excursion. Mild mitral annulus and aortic root calcification. Pulmonic valve not well visualized. IVC at normal size with physiologic collapse . A color flow and spectral Doppler study was performed and revealed: No aortic insufficiency . Mitral diastolic velocities suggest reduced left ventricular relaxation c/w mild LV diastolic dysfunction (Grade I ) Mild mitral regurgitation. Trace tricuspid regurgitation. Tricuspid systolic velocities suggests peak right ventricular systolic pressure of 18 mmHg.
--- NOTE | 2018-11-29 11:55 | Nephrology Progress Note ---
Assessment/Plan Problem List: (1) Abscess of right hip (2) Renal failure (ARF), acute on chronic (3) Urinary retention (4) Diabetes mellitus (5) Failure to thrive Assessment Renal failure: - Acute , due to meds- Obstruction.... - Chronic: Due to underlying ?HTN / DM ... Urinary Retention in ANJEL HyperGlycemia / DM / Proteinuria Anemia Right hip abcess UTI . Plan last Cr 5.2 change meds to PO as possible Patient pulled out her femoral cath 11/21! dialysis 11/20 cancelled as family changed their mind previously monitor renal parameters bailey cath monitor I&O Keep BP and BS in check Avoid Nephrotoxics Antibiotics and surgical fu Urine studies Vanco level 24 on 11/16 has NGT , will start Nepro ? DC ?? comfort care - No code... family getting second opinion about gt and HD from family physician in [place] message left with family about decision regarding HD and GT Subjective ROS Limited/Unobtainable: No Constitutional: Reports: malaise Objective Objective Last 24 Hour Vital Signs Date Time Temp Pulse Resp B/P (MAP) Pulse Ox O2 Delivery O2 Flow Rate FiO2 11/29/18 09:00 76 132/70 11/29/18 09:00 Room Air 11/29/18 08:00 97.3 76 18 132/70 (90) 95 11/29/18 06:55 94.0 11/29/18 06:05 92.1 11/29/18 05:12 153/77 11/29/18 05:00 92.0 11/29/18 04:00 75 18 153/77 (102) 98 11/29/18 01:00 94.1 11/29/18 00:00 71 18 147/75 (99) 96 11/28/18 23:21 147/75 11/28/18 21:00 Room Air 11/28/18 20:00 98.3 70 18 126/66 (86) 97 11/28/18 17:07 134/76 11/28/18 16:00 98.1 77 18 134/76 (95) 98 11/28/18 12:22 160/68 11/28/18 12:00 98.4 81 17 160/68 (98) 99 Intake and Output 11/28/18 11/29/18 19:00 07:00 Intake Total 720 ml 360 ml Output Total 400 ml 400 ml Balance 320 ml -40 ml IV Total 720 ml 360 ml Output Urine Total 400 ml 400 ml Laboratory Tests 11/29/18 07:40: White Blood Count 4.3L, Red Blood Count 3.12L, Hemoglobin 9.1L, Hematocrit 28.1L , Mean Corpuscular Volume 90, Mean Corpuscular Hemoglobin 29.2, Mean Corpuscular Hemoglobin Concent 32.4, Red Cell Distribution Width 17.4H, Platelet Count 298, Mean Platelet Volume 5.3L, Neutrophils (%) (Auto) 42.0L, Lymphocytes (%) (Auto) 44.9, Monocytes (%) (Auto) 7.7, Eosinophils (%) (Auto) 3.9H, Basophils (%) (Auto) 1.5, Sodium Level 147H, Potassium Level 3.2L, Chloride Level 118H, Carbon Dioxide Level 19L, Anion Gap 10, Blood Urea Nitrogen 47H, Creatinine 5.2H, Estimat Glomerular Filtration Rate , Glucose Level 127H, Calcium Level 8.7, Total Bilirubin 0.2, Aspartate Amino Transf (AST/ SGOT) 16, Alanine Aminotransferase (ALT/SGPT) 21, Alkaline Phosphatase 72, Total Protein 5.5L, Albumin 1.8L, Globulin 3.7, Albumin/Globulin Ratio 0.5L, Thyroid Stimulating Hormone (TSH) 7.971H Height (Feet): 5 Height (Inches): 2.00 Weight (Pounds): 88 Objective no change William Blackwood MD Nov 29, 2018 11:55
[2018-11-29 13:26] LABS: PHOSPHORUS 5.3 MG/DL (2.5-4.9)
--- NOTE | 2018-11-29 15:19 | Surgery Progress Note ---
Surgery Progress Note Subjective Procedure Performed left femoral temporary hemodialysis catheter insertion Additional Comments no acute events. labs noted. responded to transfusion. dressings changed. wound stable. Objective Last 24 Hour Vital Signs Date Time Temp Pulse Resp B/P (MAP) Pulse Ox O2 Delivery O2 Flow Rate FiO2 11/29/18 12:31 129/64 11/29/18 12:00 98.4 109 18 129/64 (85) 93 11/29/18 09:00 76 132/70 11/29/18 09:00 Room Air 11/29/18 08:00 97.3 76 18 132/70 (90) 95 11/29/18 06:55 94.0 11/29/18 06:05 92.1 11/29/18 05:12 153/77 11/29/18 05:00 92.0 11/29/18 04:00 75 18 153/77 (102) 98 11/29/18 01:00 94.1 11/29/18 00:00 71 18 147/75 (99) 96 11/28/18 23:21 147/75 11/28/18 21:00 Room Air 11/28/18 20:00 98.3 70 18 126/66 (86) 97 11/28/18 17:07 134/76 11/28/18 16:00 98.1 77 18 134/76 (95) 98 I&O Intake and Output 11/28/18 11/29/18 19:00 07:00 Intake Total 720 ml 360 ml Output Total 400 ml 400 ml Balance 320 ml -40 ml IV Total 720 ml 360 ml Output Urine Total 400 ml 400 ml Dressing: saturated Wound: clean Cardiovascular: RSR Respiratory: clear Abdomen: soft, non-tender, non-distended Extremities: no tenderness, no cyanosis Laboratory Tests Test 11/29/18 07:40 White Blood Count 4.3 K/UL (4.8-10.8) L Red Blood Count 3.12 M/UL (4.20-5.40) L Hemoglobin 9.1 G/DL (12.0-16.0) L Hematocrit 28.1 % (37.0-47.0) L Mean Corpuscular Volume 90 FL (80-99) Mean Corpuscular Hemoglobin 29.2 PG (27.0-31.0) Mean Corpuscular Hemoglobin Concent 32.4 G/DL (32.0-36.0) Red Cell Distribution Width 17.4 % (11.6-14.8) H Platelet Count 298 K/UL (150-450) Mean Platelet Volume 5.3 FL (6.5-10.1) L Neutrophils (%) (Auto) 42.0 % (45.0-75.0) L Lymphocytes (%) (Auto) 44.9 % (20.0-45.0) Monocytes (%) (Auto) 7.7 % (1.0-10.0) Eosinophils (%) (Auto) 3.9 % (0.0-3.0) H Basophils (%) (Auto) 1.5 % (0.0-2.0) Sodium Level 147 MMOL/L (136-145) H Potassium Level 3.2 MMOL/L (3.5-5.1) L Chloride Level 118 MMOL/L (98-107) H Carbon Dioxide Level 19 MMOL/L (21-32) L Anion Gap 10 mmol/L (5-15) Blood Urea Nitrogen 47 mg/dL (7-18) H Creatinine 5.2 MG/DL (0.55-1.30) H Estimat Glomerular Filtration Rate mL/min (>60) Glucose Level 127 MG/DL (74-106) H Calcium Level 8.7 MG/DL (8.5-10.1) Phosphorus Level 5.3 MG/DL (2.5-4.9) H Magnesium Level 1.8 MG/DL (1.8-2.4) Total Bilirubin 0.2 MG/DL (0.2-1.0) Aspartate Amino Transf (AST/SGOT) 16 U/L (15-37) Alanine Aminotransferase (ALT/SGPT) 21 U/L (12-78) Alkaline Phosphatase 72 U/L (46-116) Total Protein 5.5 G/DL (6.4-8.2) L Albumin 1.8 G/DL (3.4-5.0) L Globulin 3.7 g/dL Albumin/Globulin Ratio 0.5 (1.0-2.7) L Thyroid Stimulating Hormone (TSH) 7.971 uiU/mL (0.358-3.740) Assessment Post-op Diagnosis same Plan Problems: (1) Abscess of right hip Assessment & Plan: 78F with abscess of right hip, large, deep. on exam mainly looks like cellulitis but once abscess drained significant fluid it was apparent that it was much deeper. proper care necessary and unfortunately unable to get in contact with family. called daughter without reply. abscess needs drainage, washout and proper care. s/p drainage, debridement, washout improving since will likely need feeding tube since note tolerating enough diet needs nutrition to heal this wound overall wound much improved Periwound erythema and edema much improved. Wound bed significantly smaller and healing Patient more comfortable. -pending PEG placement - family decision -HD line placed - family held on HD - patient removed HD line -Nursing to do packing and dressing TID -IV abx -will follow with recs -thank you Camilo James Nov 29, 2018 15:19
[2018-11-29] MEDS: HYDROcodone/Acetamin 10/325 tab ORAL PRN (17:29)
--- NOTE | 2018-11-29 20:08 | General Progress Note ---
Assessment/Plan Status: stable, progressing Assessment/Plan: Assessment - dysphagia - resolved, tolerating po diet - renal failure - (R) hip infection - bed bound - low albumin Recommendation - Conservative Rx - careful po diet as tolerated - continue current level of care Subjective Allergies: Coded Allergies: No Known Allergies (Unverified , 11/12/18) Subjective above noted tolerating po diet ate well per RN report agitated at times Objective Last 24 Hour Vital Signs Date Time Temp Pulse Resp B/P (MAP) Pulse Ox O2 Delivery O2 Flow Rate FiO2 11/29/18 17:29 130/76 11/29/18 16:00 98.9 99 22 130/76 (94) 95 11/29/18 15:00 Room Air 11/29/18 12:31 129/64 11/29/18 12:00 98.4 109 18 129/64 (85) 93 11/29/18 09:00 76 132/70 11/29/18 09:00 Room Air 11/29/18 08:00 97.3 76 18 132/70 (90) 95 11/29/18 06:55 94.0 11/29/18 06:05 92.1 11/29/18 05:12 153/77 11/29/18 05:00 92.0 11/29/18 04:00 75 18 153/77 (102) 98 11/29/18 01:00 94.1 11/29/18 00:00 71 18 147/75 (99) 96 11/28/18 23:21 147/75 11/28/18 21:00 Room Air Intake and Output 11/28/18 11/29/18 19:00 07:00 Intake Total 720 ml 360 ml Output Total 400 ml 400 ml Balance 320 ml -40 ml IV Total 720 ml 360 ml Output Urine Total 400 ml 400 ml Laboratory Tests 11/29/18 07:40: White Blood Count 4.3L, Red Blood Count 3.12L, Hemoglobin 9.1L, Hematocrit 28.1L , Mean Corpuscular Volume 90, Mean Corpuscular Hemoglobin 29.2, Mean Corpuscular Hemoglobin Concent 32.4, Red Cell Distribution Width 17.4H, Platelet Count 298, Mean Platelet Volume 5.3L, Neutrophils (%) (Auto) 42.0L, Lymphocytes (%) (Auto) 44.9, Monocytes (%) (Auto) 7.7, Eosinophils (%) (Auto) 3.9H, Basophils (%) (Auto) 1.5, Sodium Level 147H, Potassium Level 3.2L, Chloride Level 118H, Carbon Dioxide Level 19L, Anion Gap 10, Blood Urea Nitrogen 47H, Creatinine 5.2H, Estimat Glomerular Filtration Rate , Glucose Level 127H, Calcium Level 8.7, Phosphorus Level 5.3H, Magnesium Level 1.8, Total Bilirubin 0.2, Aspartate Amino Transf (AST/SGOT) 16, Alanine Aminotransferase (ALT/SGPT) 21, Alkaline Phosphatase 72, Total Protein 5.5L, Albumin 1.8L, Globulin 3.7, Albumin/Globulin Ratio 0.5L, Thyroid Stimulating Hormone (TSH) 7.971H Height (Feet): 5 Height (Inches): 2.00 Weight (Pounds): 88 Objective Thin woman NCAT Neck supple supple chest CTA RRR Abd Soft, NT, ND no edema Crisyt Elizondo MD Nov 29, 2018 20:08
[2018-11-29] MEDS: Epoetin Alfa-EPBX (NON ESRD) 3000 units/ml vial SUBQ SCH (21:37)
--- NOTE | 2018-11-29 22:30 | Progress Note ---
DATE: 11/29/2018 CARDIOLOGY PROGRESS NOTE SUBJECTIVE: The patient is hypothermic this morning. Blood pressure remained stable. Heart rate controlled. Oral intake is somewhat better and no new bleeding. OBJECTIVE: VITAL SIGNS: Blood pressure 153/77, pulse 75, respirations 18, and temperature 92. LUNGS: Bilateral breath sounds. HEART: Regular rhythm and rate. Normal S1, S2. ABDOMEN: Soft. No focal tenderness. EXTREMITIES: With 1+ edema. LABORATORY DATA: White count 4.3, hemoglobin 9.1, and platelets 298,000. Sodium 147, potassium 3.2, bicarbonate 19, BUN 47, creatinine 5.2, magnesium 1.8, albumin 1.8. IMPRESSION: 1. Severe protein-calorie malnutrition. 2. Chronic kidney disease, stage 5. 3. Hypothyroidism. 4. Dehydration. 5. Hypernatremia. 6. Hypokalemia. 7. Hyperchloremia. 8. Metabolic acidosis. 9. Acute on chronic diastolic congestive heart failure. PLAN: 1. Encourage oral intake. 2. Hypotonic IV fluids. 3. Replace potassium. 4. Thyroid replacement. 5. No immediate plans for dialysis. Abel Stubbs M.D. DR: FAITH JOB#: [id number] CC:
[2018-11-30] VITALS: BP 165/91
[2018-11-30] MEDS: HydrALAZINE 50mg tab NG SCH ×3 (00:44→12:26)
[2018-11-30] MEDS: DiphenhydrAMINE 50mg/ml Inj IVP PRN ×2 (01:12→05:10)
[2018-11-30] MEDS: LORazepam Inj 2mg/ml 1ml IV PRN ×2 (02:35→09:28)
[2018-11-30 04:00] VITALS: BP 185/96
[2018-11-30] MEDS: HYDROcodone/Acetamin 10/325 tab ORAL PRN (05:10)
[2018-11-30] MEDS: NovoLOG Insulin Flexpen SUBQ SCH ×2 (06:01→11:41)
[2018-11-30 06:07] VITALS: BP 161/86
[2018-11-30 08:00] VITALS: BP 147/76
--- NOTE | 2018-11-30 08:50 | General Progress Note ---
Assessment/Plan Problem List: (1) Anemia due to acute blood loss ICD Codes: D62 - Acute posthemorrhagic anemia SNOMED: 482890256 (2) Dementia ICD Codes: F03.90 - Unspecified dementia without behavioral disturbance SNOMED: 48700256 (3) Renal insufficiency ICD Codes: N28.9 - Disorder of kidney and ureter, unspecified SNOMED: 702630089, 274736956 (4) Abscess of right hip ICD Codes: L02.415 - Cutaneous abscess of right lower limb SNOMED: 949747 Status: stable, progressing Assessment/Plan: cont current rx monitor for bleeding follow up labs PPI rx cont wound care/packing d/w son. no plans for HD or feeding tube(pt is eating well) dc planning Subjective ROS Limited/Unobtainable: Yes Constitutional: Reports: malaise, weakness HEENT: Reports: no symptoms Cardiovascular: Reports: no symptoms Respiratory: Reports: no symptoms Gastrointestinal/Abdominal: Reports: no symptoms Genitourinary: Reports: no symptoms Neurologic/Psychiatric: Reports: emotional problems, pre-existing deficit Endocrine: Reports: no symptoms Hematologic/Lymphatic: Reports: anemia Allergies: Coded Allergies: No Known Allergies (Unverified , 11/12/18) All Systems: reviewed and negative except above Subjective no events. less itching. renal fxn improving. eating better. Objective Last 24 Hour Vital Signs Date Time Temp Pulse Resp B/P (MAP) Pulse Ox O2 Delivery O2 Flow Rate FiO2 11/30/18 08:00 98.6 71 18 147/76 (99) 97 11/30/18 06:07 161/86 (111) 11/30/18 05:10 185/96 11/30/18 04:00 96.0 92 22 185/96 (125) 99 11/30/18 00:44 165/91 11/30/18 00:00 97.0 90 22 165/91 (115) 96 11/29/18 21:00 Room Air 11/29/18 20:00 98.6 82 20 133/65 (87) 95 11/29/18 17:29 130/76 11/29/18 16:00 98.9 99 22 130/76 (94) 95 11/29/18 15:00 Room Air 11/29/18 12:31 129/64 11/29/18 12:00 98.4 109 18 129/64 (85) 93 11/29/18 09:00 76 132/70 11/29/18 09:00 Room Air Intake and Output 11/29/18 11/30/18 18:59 06:59 Intake Total 660 ml 600 ml Output Total 400 ml Balance 660 ml 200 ml IV Total 660 ml 600 ml Output Urine Total 400 ml Stool Total 0 ml Height (Feet): 5 Height (Inches): 2.00 Weight (Pounds): 88 Objective General Appearance: WD/WN, alert, confused. Neck: supple Cardiovascular: normal rate, regular rhythm Respiratory/Chest: chest wall non-tender, lungs clear, normal breath sounds Abdomen: normal bowel sounds, non tender, soft, no organomegaly Edema: no edema noted Arm (L), no edema noted Arm (R), no edema noted Leg (L), no edema noted Leg (R), no edema noted Pedal (L), no edema noted Pedal (R), no edema noted Generalized Neurologic: alert, disoriented Nate Beltran MD Nov 30, 2018 08:50
[2018-11-30] MEDS: Doxazosin 1mg Tab ORAL SCH (09:15)
[2018-11-30] MEDS: Lactobacillus-GG tablet NG SCH ×2 (09:16→12:26)
[2018-11-30] MEDS: Heparin 5000 units/ml inj SUBQ SCH (09:17)
[2018-11-30] MEDS ORDERED: D5NS 1000ml IV ONE (10:47)
--- NOTE | 2018-11-30 11:10 | Infectious Diseases Prog Note ---
Assessment/Plan Assessment/Plan antibiotics : none A 1. right hip abscess s/p i and d, s/p rx 2. renal failure 3. hypertension 4. dementia P 1. continue off antibiotics Subjective ROS Limited/Unobtainable: Yes Allergies: Coded Allergies: No Known Allergies (Unverified , 11/12/18) Objective Vital Signs Last 24 Hour Vital Signs Date Time Temp Pulse Resp B/P (MAP) Pulse Ox O2 Delivery O2 Flow Rate FiO2 11/30/18 09:16 71 147/76 11/30/18 09:00 Room Air 11/30/18 08:00 98.6 71 18 147/76 (99) 97 11/30/18 06:07 161/86 (111) 11/30/18 05:10 185/96 11/30/18 04:00 96.0 92 22 185/96 (125) 99 11/30/18 00:44 165/91 11/30/18 00:00 97.0 90 22 165/91 (115) 96 11/29/18 21:00 Room Air 11/29/18 20:00 98.6 82 20 133/65 (87) 95 11/29/18 17:29 130/76 11/29/18 16:00 98.9 99 22 130/76 (94) 95 11/29/18 15:00 Room Air 11/29/18 12:31 129/64 11/29/18 12:00 98.4 109 18 129/64 (85) 93 Height (Feet): 5 Height (Inches): 2.00 Weight (Pounds): 88 Respiratory/Chest: lungs clear Cardiovascular: normal rate, regular rhythm, no gallop/murmur Abdomen: soft, non tender Extremities: no edema Current Medications Medications (Trade) Dose Ordered Sig/Javier Route PRN Reason Start Time Stop Time Status Last Admin Dose Admin Acetaminophen (Tylenol) 650 mg Q4H PRN ORAL Mild Pain/Temp > 100.5 11/12/18 20:00 12/12/18 19:59 11/14/18 18:39 Amlodipine Besylate (Norvasc) 10 mg DAILY ORAL 11/20/18 11:00 12/20/18 10:59 11/30/18 09:16 Dextrose (Dextrose 50%) 25 ml Q30M PRN IV Hypoglycemia 11/18/18 16:00 12/18/18 15:59 Dextrose (Dextrose 50%) 50 ml Q30M PRN IV Hypoglycemia 11/18/18 16:00 12/18/18 15:59 Dextrose/Sodium Chloride 1,000 ml @ 60 mls/hr [id number] IV 11/25/18 17:28 12/25/18 17:27 11/29/18 21:37 Diphenhydramine HCl (Benadryl) 50 mg Q4H PRN IVP Itching 11/29/18 22:45 12/23/18 22:44 11/30/18 05:10 Doxazosin Mesylate (Cardura) 2 mg BID ORAL 11/25/18 09:00 12/25/18 08:59 11/30/18 09:15 Epoetin Thomas (Epoetin Thomas-EPBX(NON ESRD)) 3,000 unit THU-THU-THU SUBQ 11/15/18 21:00 12/15/18 20:59 11/29/18 21:37 Heparin Sodium (Porcine) (Heparin 5000 units/ml) 5,000 units EVERY 12 HOURS SUBQ 11/19/18 21:30 12/19/18 21:29 11/30/18 09:17 Hydralazine HCl (Apresoline) 50 mg EVERY 6 HOURS NG 11/21/18 18:00 12/19/18 13:33 11/30/18 05:10 Insulin Aspart (NovoLOG) AC+HS SUBQ 11/27/18 11:30 12/18/18 20:59 11/30/18 06:01 Lactobacillus Acidophilus (Culturelle) 1 tab THREE TIMES A DAY NG 11/21/18 18:00 12/21/18 17:59 11/30/18 09:16 Levothyroxine Sodium (Synthroid) 50 mcg DAILY@0630 ORAL 11/30/18 06:30 12/30/18 06:29 11/30/18 05:59 Loperamide HCl (Imodium) 2 mg Q6H PRN NG Diarrhea 11/21/18 14:45 12/21/18 14:44 Lorazepam (Ativan 2mg/ml 1ml) 1 mg Q4H PRN IV For Anxiety 11/27/18 07:00 12/04/18 06:59 11/30/18 09:28 Mirtazapine (Remeron) 15 mg BEDTIME ORAL 11/19/18 21:30 12/19/18 21:29 11/29/18 21:37 Ondansetron HCl (Zofran) 0.5 mg Q8H PRN IVP Nausea & Vomiting 11/12/18 20:00 12/12/18 19:59 Pantoprazole (Protonix) 40 mg DAILY ORAL 11/30/18 09:00 12/30/18 08:59 11/30/18 09:16 Potassium Chloride (K-Dur) 20 meq TWICE A DAY ORAL 11/29/18 12:00 11/30/18 11:59 11/30/18 09:16 Quetiapine Fumarate (SEROquel) 100 mg QHS ORAL 11/19/18 21:30 12/19/18 21:29 11/29/18 21:37 Sevelamer Carbonate (Renvela) 800 mg THREE TIMES A DAY ORAL 11/27/18 13:00 12/27/18 12:59 11/30/18 09:16 Melissa Solares MD Nov 30, 2018 11:10
[2018-11-30 12:00] VITALS: BP 130/62
--- NOTE | 2018-11-30 12:23 | Nephrology Progress Note ---
Assessment/Plan Problem List: (1) Abscess of right hip (2) Renal failure (ARF), acute on chronic (3) Urinary retention (4) Diabetes mellitus (5) Failure to thrive Assessment Renal failure: - Acute , due to meds- Obstruction.... - Chronic: Due to underlying ?HTN / DM ... Urinary Retention in ANJEL HyperGlycemia / DM / Proteinuria Anemia Right hip abcess UTI . Plan no IV no PEG DC to lower level care last Cr 5.2 change meds to PO as possible Patient pulled out her femoral cath 11/21! dialysis 11/20 cancelled as family changed their mind previously monitor renal parameters bailey cath monitor I&O Keep BP and BS in check Avoid Nephrotoxics Antibiotics and surgical fu Urine studies Vanco level 24 on 11/16 has NGT , will start Nepro ? DC ?? comfort care - No code... family getting second opinion about gt and HD from [place] physician [place] message left with family about decision regarding HD and GT Subjective ROS Limited/Unobtainable: Yes Objective Objective Last 24 Hour Vital Signs Date Time Temp Pulse Resp B/P (MAP) Pulse Ox O2 Delivery O2 Flow Rate FiO2 11/30/18 12:00 98.0 74 18 130/62 (84) 98 11/30/18 09:16 71 147/76 11/30/18 09:00 Room Air 11/30/18 08:00 98.6 71 18 147/76 (99) 97 11/30/18 06:07 161/86 (111) 11/30/18 05:10 185/96 11/30/18 04:00 96.0 92 22 185/96 (125) 99 11/30/18 00:44 165/91 11/30/18 00:00 97.0 90 22 165/91 (115) 96 11/29/18 21:00 Room Air 11/29/18 20:00 98.6 82 20 133/65 (87) 95 11/29/18 17:29 130/76 11/29/18 16:00 98.9 99 22 130/76 (94) 95 11/29/18 15:00 Room Air 11/29/18 12:31 129/64 Intake and Output 11/29/18 11/30/18 19:00 07:00 Intake Total 720 ml 540 ml Output Total 400 ml Balance 720 ml 140 ml IV Total 720 ml 540 ml Output Urine Total 400 ml Stool Total 0 ml Height (Feet): 5 Height (Inches): 2.00 Weight (Pounds): 88 General Appearance: no apparent distress Objective no change William Blackwood MD Nov 30, 2018 12:23
[2018-11-30 12:26] VITALS: BP 130/62
[2018-11-30] MEDS: D5NS 1,000 ML IV SCH (14:08)
--- NOTE | 2018-11-30 14:30 | Surgery Progress Note ---
Surgery Progress Note Subjective Procedure Performed left femoral temporary hemodialysis catheter insertion Additional Comments no acute events. stable. dressings clean wound improved. Objective Last 24 Hour Vital Signs Date Time Temp Pulse Resp B/P (MAP) Pulse Ox O2 Delivery O2 Flow Rate FiO2 11/30/18 12:26 130/62 11/30/18 12:00 98.0 74 18 130/62 (84) 98 11/30/18 09:16 71 147/76 11/30/18 09:00 Room Air 11/30/18 08:00 98.6 71 18 147/76 (99) 97 11/30/18 06:07 161/86 (111) 11/30/18 05:10 185/96 11/30/18 04:00 96.0 92 22 185/96 (125) 99 11/30/18 00:44 165/91 11/30/18 00:00 97.0 90 22 165/91 (115) 96 11/29/18 21:00 Room Air 11/29/18 20:00 98.6 82 20 133/65 (87) 95 11/29/18 17:29 130/76 11/29/18 16:00 98.9 99 22 130/76 (94) 95 11/29/18 15:00 Room Air I&O Intake and Output 11/29/18 11/30/18 19:00 07:00 Intake Total 720 ml 540 ml Output Total 400 ml Balance 720 ml 140 ml IV Total 720 ml 540 ml Output Urine Total 400 ml Stool Total 0 ml Dressing: saturated Wound: clean Drains: none Cardiovascular: RSR Respiratory: clear Abdomen: soft, non-tender, present bowel sounds, non-distended Extremities: no tenderness, no cyanosis Assessment Post-op Diagnosis same Plan Problems: (1) Abscess of right hip Assessment & Plan: 78F with abscess of right hip, large, deep. on exam mainly looks like cellulitis but once abscess drained significant fluid it was apparent that it was much deeper. proper care necessary and unfortunately unable to get in contact with family. called daughter without reply. abscess needs drainage, washout and proper care. s/p drainage, debridement, washout improving since will likely need feeding tube since note tolerating enough diet needs nutrition to heal this wound overall wound much improved Periwound erythema and edema much improved. Wound bed significantly smaller and healing Patient more comfortable. -pending PEG placement - family decision -HD line placed - family held on HD - patient removed HD line -Nursing to do packing and dressing TID -IV abx -will follow with recs -thank you Camilo James Nov 30, 2018 14:30
[2018-11-30] MEDS ORDERED: ACETAMINOPHEN500 M5 ORAL (15:00)
[2018-11-30] MEDS ORDERED: DIPHENHYDRAMINE25 M1 IVP (15:03)
[2018-11-30] MEDS ORDERED: DOXAZOSIN MESYLA1 MG ORAL ×3 (15:05→15:07)
[2018-11-30] MEDS ORDERED: RETACRIT3000 UNIT/ SUBQ (15:11)
[2018-11-30] MEDS ORDERED: MONOJECT H100 UNIT/1 IV (15:14)
[2018-11-30] MEDS ORDERED: HYDRALAZINE HCL50 MG ORAL (15:14)
[2018-11-30] MEDS ORDERED: NOVOLOG100 UNIT/4 SQ (15:17)
[2018-11-30] MEDS ORDERED: CULTURELLE1 EAC1 NG (15:19)
[2018-11-30] MEDS ORDERED: LEVOTHYROXINE100 MC1 PO (15:20)
[2018-11-30] MEDS ORDERED: ANTI-DIARRHEAL2 MG NG (15:22)
[2018-11-30] MEDS ORDERED: MIRTAZAPINE15 M3 ORAL (15:23)
[2018-11-30] MEDS ORDERED: LORAZEPAM2 MG IV (15:23)
[2018-11-30] MEDS ORDERED: PANTOPRAZOLE SO40 MG ORAL (15:25)
[2018-11-30] MEDS ORDERED: RENVELA0.8 GM ORAL (15:27)
[2018-11-30] MEDS ORDERED: CARDURA1 MG ORAL (15:28)
--- NOTE | 2018-11-30 21:17 | General Progress Note ---
Assessment/Plan Status: stable, progressing Assessment/Plan: Assessment - dysphagia - resolved, tolerating po diet - renal failure - (R) hip infection - bed bound - low albumin Recommendation - Conservative Rx - careful po diet as tolerated - continue current level of care - d/c planning Subjective Allergies: Coded Allergies: No Known Allergies (Unverified , 11/12/18) Subjective above noted tolerating po diet ate well per RN report for d/c Objective Last 24 Hour Vital Signs Date Time Temp Pulse Resp B/P (MAP) Pulse Ox O2 Delivery O2 Flow Rate FiO2 11/30/18 12:26 130/62 11/30/18 12:00 98.0 74 18 130/62 (84) 98 11/30/18 09:16 71 147/76 11/30/18 09:00 Room Air 11/30/18 08:00 98.6 71 18 147/76 (99) 97 11/30/18 06:07 161/86 (111) 11/30/18 05:10 185/96 11/30/18 04:00 96.0 92 22 185/96 (125) 99 11/30/18 00:44 165/91 11/30/18 00:00 97.0 90 22 165/91 (115) 96 Intake and Output 11/29/18 11/30/18 19:00 07:00 Intake Total 720 ml 540 ml Output Total 400 ml Balance 720 ml 140 ml IV Total 720 ml 540 ml Output Urine Total 400 ml Stool Total 0 ml Height (Feet): 5 Height (Inches): 2.00 Weight (Pounds): 88 Objective Thin woman NCAT Neck supple supple chest CTA RRR Abd Soft, NT, ND no edema Cristy Elizondo MD Nov 30, 2018 21:17
--- NOTE | 2018-12-01 17:09 | Discharge Summary ---
Discharge Summary Discharge Summary _ DATE OF ADMISSION: 11/12/2018 DATE OF DISCHARGE: 11/30/2018 DISCHARGED BY: Dr. Beltran REASON FOR ADMISSION: 78 years old male with past medical history of chronic kidney disease, hypertension, diabetes mellitus, schizophrenia, resident of [facility], was sent from the [facility] due to persistent infection of the right thigh. At the facility patient was on oral antibiotic without improvement Due to lack of improvement on oral antibiotics, patient was transferred to emergency room for further evaluation and management. Upon evaluation vital signs revealed slightly elevated blood pressure 148/90, no fever. Laboratory work-up revealed no leukocytosis, hemoglobin 9.5, hematocrit 28.6, platelet count 586. Urinalysis revealed no evidence of UTI. Sodium 133 9, BUN 67, creatinine 5.4. Lactic acid 1.4. Albumin 2.7. Patient undergone drainage of the right thigh abscess in the emergency department. Significant amount of purulent discharge was evacuated. Subsequently patient was admitted for further evaluation and management. CONSULTANTS: budget record clerk Dr. Stubbs ID specialist Dr. Solares GI specialist Dr. Elizondo form press operator Dr. Blackwood surgery [facility] COURSE: Patient admitted to medical surgical floor and started on the IV antibiotics as per ID specialist recommendations. General surgeon closely followed. Despite initial incision and drainage in the emergency department ,right thigh abscess required further drainage , washout and proper care . Patient subsequently undergone on 11/12 excisional debridement of nonviable necrotic tissue and debris of the right hip abscess . Wound care provided as per surgeon recommendation. Pain management was addressed. Blood cultures were negative. Urine cultures was negative . Wound culture revealed Staph coagulase negative. Stool for C. difficile was negative. Patient had intermittent leukocytosis which resolved, and no fevers. Antibiotics provided as per ID recommendation. Patient completed course of antibiotic while in the hospital. Patient developed acute renal failure and required placement of hemodialysis catheter, which was placed on 11/20 via left femoral vein by general surgeon. Equipment Operat0R closely followed. Family initially agreed to hemodialysis but then changed his mother mind. Renal parameters and electrolytes were closely monitored, and electrolytes further corrected as needed. Renal ultrasound revealed left renal pelvocaliectasis and urinary retention. Per form press operator, renal failure was acute due to medication and chronic likely due to underlying hypertension versus diabetes. Dialysis initially planned , but was canceled as family changed their mind. Patient was started on Renvela. Patient developed diarrhea and started on symptomatic treatment with Imodium. Stool for C. difficile was negative. Intake and output was closely monitored along with renal parameters. Nephrotoxins were avoided Small change in the renal parameters: BUN from 67 down to 47 and creatinine from 5.4 down to 5.2. Pen Ruler Operator followed. Blood pressure was managed with calcium channel elissa, Cardura and hydralazine. Echocardiogram revealed preserved ejection fraction of 60 to 65%. No evidence of wall motion abnormality . Mild left ventricular hypertrophy. Right ventricular systolic pressure of 18. Pro BNP 7643. Volume overload improved as colloid osmotic pressure increased and an extravascular fluid was mobilized. Pen Ruler Operator recommended to reassess for diuretic therapy as an outpatient. Continue current antihypertensive regimen with p.r.n dosing for blood pressure if spikes spikes. PT prophylaxis provided. CT of the head revealed no acute intracranial bleeding , mass-effect or edema. 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 Moderate atrophy of the brain. Evidence of chronic small vessel disease, involving white matter tracts. GI specialist followed. Patient initially with NG tube . Enteral nutrition was provided via nasogastric route. Family declined G-tube placement. Bedside swallow evaluation revealed mild dysphagia. Patient started on oral diet for oral gratification with texture as per speech therapist recommendation, with strict aspiration/reflux precaution. Nutritional supplements implemented in plan of care as per registered nurse surgical services recommendation. GI prophylaxis provided. GI recommended conservative treatment Hemoglobin and hematocrit were closely monitored with goal to keep hemoglobin above 7. Anemia work-up was consistent with anemia of chronic disease, likely due to chronic kidney disease Patient received 2 units of packed red blood cells, while in the hospital. Prior to discharge hemoglobin 9.1, hematocrit 28.1. Blood sugar was managed with sliding scale of insulin as needed. Pain management was addressed as needed, Levothyroxine continued. Supportive care provided. Bowel regimen instituted. Patient clinically stabilized and was ready for discharge to [facility] for continuation of care. Patient will require close monitoring and adjustment of therapy in view of transitioning cardiorenal function. FINAL DIAGNOSES: Large right hip abscess Status post incision and drainage of right hip abscess with excisional debridement of nonviable necrotic tissue and debris Status post placement of left femoral temporary hemodialysis catheter Acute renal failure on chronic stage V kidney disease Diabetes mellitus Urinary retention with obstructive uropathy Dehydration Acute on chronic diastolic congestive heart failure Electrolyte abnormalities ( hypernatremia , hypokalemia , hyperchloremia) Hypertensive heart disease Severe protein calorie malnutrition Hypothyroidism Cerebrovascular disease with dementia Anemia of acute blood loss Anemia of chronic disease Dysphagia DISCHARGE MEDICATIONS: See Medication Reconciliation list. DISCHARGE INSTRUCTIONS: Patient was discharged to the [facility]. Follow up with medical doctor at the facility. I have been assigned to dictate discharge summary for this account. I was not involved in the patient's management. Kathi Aguero NP Dec 01, 2018 17:09
--- NOTE | 2018-12-02 04:00 | Progress Note ---
DATE: 11/30/2018 CARDIOLOGY PROGRESS NOTE SUBJECTIVE: The patient has better renal function. She does not need hemodialysis at this time. OBJECTIVE: VITAL SIGNS: Blood pressure 147/76, pulse 71, and respiratory rate 18. Blood pressure max 185/96. LUNGS: Diminished breath sounds. CARDIAC: Regular rhythm and rate. Normal S1, S2 with a fourth heart sound. ABDOMEN: Soft. EXTREMITIES: Trace dependent edema. IMPRESSION: 1. Overall improved. 2. Recovering renal failure. 3. Malnutrition and anorexia improved as well. 4. Volume overload can be improved as colloid osmotic pressure increases and an extravascular fluid is mobilized. PLAN: 1. Observe at assisted facility. 2. Reassess for diuretic therapy as an outpatient. 3. Monitor on current antihypertensive regimen with p.r.n dosing for blood pressure spikes. 4. She will require close monitoring and adjustment of therapy in view of transitioning cardiorenal function. Abel Stubbs M.D. DR: ALICIA JOB#: [id number] CC:
== END 2018-11-30 15:48 | DRG 364 ==
LOC: EDBD 18:32 → EMR 18:42 → 4E 20:05 → EDBEDREQ 20:52 → 4E 11-18 04:04 → UNDODISIN 11-19 11:30
PROC: 0KBN0ZZ Excision of Right Hip Muscle, Open Approach (ICD-10-PCS; principal; 2018-11-12)
PROC: 0K9Q3ZZ Drainage of Right Upper Leg Muscle, Percutaneous Approach (ICD-10-PCS; principal; 2018-11-12)
PROC: 06HN33Z Insertion of Infusion Device into Left Femoral Vein, Percutaneous Approach (ICD-10-PCS; 2018-11-20)
PROC: 5A1D70Z Performance of Urinary Filtration, Intermittent, Less than 6 Hours Per Day (ICD-10-PCS; 2018-11-20)
DX: L03.115 Cellulitis of right lower limb (principal); E43 Unspecified severe protein-calorie malnutrition; N17.9 Acute kidney failure, unspecified; I13.2 Hypertensive heart and chronic kidney disease with heart failure and with stage 5 chronic kidney disease, or end stage renal disease; E11.65 Type 2 diabetes mellitus with hyperglycemia; E11.22 Type 2 diabetes mellitus with diabetic chronic kidney disease; D62 Acute posthemorrhagic anemia; E87.0 Hyperosmolality and hypernatremia; E86.0 Dehydration; N39.0 Urinary tract infection, site not specified; L02.415 Cutaneous abscess of right lower limb; F20.9 Schizophrenia, unspecified; N18.5 Chronic kidney disease, stage 5; I50.33 Acute on chronic diastolic (congestive) heart failure; F03.91 Unspecified dementia, unspecified severity, with behavioral disturbance; R33.9 Retention of urine, unspecified; K92.2 Gastrointestinal hemorrhage, unspecified; I25.10 Atherosclerotic heart disease of native coronary artery without angina pectoris; I25.83 Coronary atherosclerosis due to lipid rich plaque; M81.0 Age-related osteoporosis without current pathological fracture; R62.7 Adult failure to thrive; Z68.1 Body mass index [BMI] 19.9 or less, adult; E03.9 Hypothyroidism, unspecified; E87.6 Hypokalemia; E87.8 Other disorders of electrolyte and fluid balance, not elsewhere classified; E87.2 Acidosis; R13.10 Dysphagia, unspecified; Z74.01 Bed confinement status
CPT/HCPCS: 10060; 36415; 70450; 71045; 74018; 76770; 80053; 80061; 80202; 81003; 82550; 82575; 82607; 82728; 82746; 82962; 82977; 83036; 83540; 83550; 83605; 83735; 83880; 84100; 84300; 84443; 84484; 84550; 85007; 85025; 85610; 85730; 86140; 86850; 86900; 86901; 86920; 87040; 87070; 87081; 87086; 87205; 87324; 87340; 89050; 93306; 99285; J1815; J8499

== ENCOUNTER 2018-12-17 15:14 | Inpatient (IN) | payer MEDICARE, OTHER ==
[~2018-12-17] VITALS: Ht 157.5 cm; Wt 46.3 kg
[~2018-12-17 15:14] MED LIST changes: +ACETAMINOPHEN500 M5 ORAL; +ANTI-DIARRHEAL2 MG NG; +CARDURA1 MG ORAL; +CULTURELLE1 EAC1 NG; +DIPHENHYDRAMINE25 M1 IVP; +DOXAZOSIN MESYLA1 MG ORAL; +LEVOTHYROXINE100 MC1 PO; +LORAZEPAM2 MG IV; +MIRTAZAPINE15 M3 ORAL; +MONOJECT H100 UNIT/1 IV; +NOVOLOG100 UNIT/4 SQ; +PANTOPRAZOLE SO40 MG ORAL; +RENVELA0.8 GM ORAL; +RETACRIT3000 UNIT/ SUBQ
[2018-12-18] MEDS ORDERED: ATROPINE SULFAT15 ML SL (12:45)
[2018-12-18] MEDS ORDERED: ALBUTEROL2.5 MG/3 M INH (12:45)
[2018-12-18] MEDS ORDERED: NORCO 5-325 TA1 EACH ORAL (12:45)
[2018-12-18] MEDS ORDERED: BISACODYL10 M1 RC (12:45)
[2018-12-18] MEDS ORDERED: HydrALAZINE 50mg tab ORAL SCH (14:00)
[2018-12-18] MEDS ORDERED: HYDROcodone/Acetamin 5/325 tab ORAL PRN (14:00)
[2018-12-18] MEDS ORDERED: Acetaminophen 500mg (ES) tab ORAL SCH (14:00)
[2018-12-18] MEDS ORDERED: HydrALAZINE 50mg tab ORAL PRN (14:45)
[2018-12-18] MEDS ORDERED: Loperamide 2mg cap ORAL PRN (14:45)
[2018-12-18 15:39] LABS: HEMATOCRIT 26.7 % (37.0-47.0); HEMOGLOBIN 8.4 G/DL (12.0-16.0); MEAN CORPUSCULAR VOLUME 95 FL (80-99); PLATELET COUNT 480 K/UL (150-450); RED BLOOD COUNT 2.83 M/UL (4.20-5.40); RED CELL DISTRIBUTION WIDTH 17.4 % (11.6-14.8); WHITE BLOOD COUNT 9.6 K/UL (4.8-10.8)
[2018-12-18 15:48] VITALS: BP 160/72
[2018-12-18 15:48] LABS: ANION GAP 7 mmol/L (5-15); BLOOD UREA NITROGEN 59 mg/dL (7-18); CALCIUM 8.7 MG/DL (8.5-10.1); CARBON DIOXIDE 22 MMOL/L (21-32); CHLORIDE 109 MMOL/L (98-107); CREATININE 5.2 MG/DL (0.55-1.30); SODIUM 138 MMOL/L (136-145)
--- NOTE | 2018-12-18 15:49 | Consultation ---
History of Present Illness General Date patient seen: Dec 18, 2018 Present Illness HPI This is a very pleasant 78-year-old female well-known to me from last admission where she was identified to have a large concerning abscess on her right hip with skin necrosis requiring incision and drainage as well as excisional debridement and prolonged wound care. During that admission patient had multiple comorbidities being cared for including renal insufficiency and failure to thrive. She was discharged safely and [facility] until recently when identified to be worsening with renal insufficiency requiring admission to [facility] for care. During last admission with her renal insufficiency family decided against hemodialysis but since of change there mind. Upon admission patient identified to still have an open wound from prior debridement and abscess drainage requiring care and management. Surgery called to evaluate and assist with care. Patient seen , patient evaluate, chart reviewed Allergies: Coded Allergies: No Known Allergies (Unverified , 11/12/18) Medication History Scheduled Acetaminophen (Acetaminophen), 650 MG ORAL Q4H, (Reported) Amlodipine Besylate* (Amlodipine Besylate*), 10 MG ORAL DAILY, (Reported) Atorvastatin Calcium* (Lipitor*), 10 MG ORAL BEDTIME, (Reported) Carvedilol (Coreg), 6.25 MG ORAL EVERY 12 HOURS, (Reported) Divalproex Sodium* (Depakote Er*), 125 MG ORAL EVERY 12 HOURS, (Reported) Doxazosin Mesylate* (Doxazosin Mesylate*), 2 MG ORAL BID, (Reported) Doxazosin Mesylate* (Doxazosin Mesylate*), 2 MG ORAL BID, (Reported) Doxazosin Mesylate* (Doxazosin Mesylate*), 2 MG ORAL BID, (Reported) Doxazosin Mesylate* (Cardura*), 2 MG ORAL BID, (Reported) Epoetin Thomas (Epogen), 5,000 UNIT SUBQ EVERY OTHER DAY, (Reported) Epoetin Thomas-Epbx (Retacrit), 3,000 UNIT SUBQ 3XW, (Reported) Ferrous Sulfate* (Ferrous Sulfate*), 325 MG ORAL THREE TIMES A DAY, (Reported) Folic Acid* (Folic Acid*), 1 MG ORAL DAILY, (Reported) Hydralazine Hcl* (Hydralazine Hcl*), 50 MG ORAL EVERY 8 HOURS, (Reported) Hydralazine Hcl* (Hydralazine Hcl*), 50 MG ORAL EVERY 6 HOURS, (Reported) Insulin Aspart (Novolog), 100 UNIT SQ ACHS, (Reported) Lactobacillus Rhamnosus Gg (Culturelle), 1 EACH NG Q8HR, (Reported) Levothyroxine Sodium* (Levothyroxine Sodium*), 50 MCG PO DAILY, (Reported) Loperamide Hcl (Anti-Diarrheal), 2 MG NG Q6H, (Reported) Lorazepam* (Lorazepam*), 2 MG IV Q4H, (Reported) Mirtazapine* (Remeron*), 15 MG ORAL BEDTIME, (Reported) Mirtazapine* (Mirtazapine*), 15 MG ORAL BEDTIME, (Reported) Pantoprazole* (Pantoprazole*), 40 MG ORAL DAILY, (Reported) Quetiapine Fumarate* (Seroquel*), 100 MG ORAL QHS, (Reported) Sevelamer Carbonate* (Renvela*), 800 MG ORAL THREE TIMES A DAY, (Reported) Scheduled PRN Albuterol Sulfate* (Albuterol Sulfate Hhn*), 3 ML INH Q6H PRN for Shortness of Breath, (Reported) Diphenhydramine Hcl* (Diphenhydramine Hcl*), 50 MG IVP Q4HR PRN for Itching, ( Reported) Hydrocodone Bit/Acetaminophen 5-325* (Houston 5-325*), 1 TAB ORAL Q4H PRN for For Pain, (Reported) Miscellaneous Medications Atropine Sulfate (Atropine Sulfate), 15 ML SL, (Reported) Bisacodyl (Bisacodyl), 10 MG RC, (Reported) Heparin Sodium,Porcine/Pf (Heparin 1,000 Unit/10 (100/ml)), 5,000 UNIT IV, ( Reported) Patient History Limited by: age, medical condition History Provided By: Medical Record, PMD Healthcare decision maker self Resuscitation status Full Code Advanced Directive on File No Past Medical/Surgical History Past Medical/Surgical History: (1) Abscess of right hip (2) Anemia due to acute blood loss (3) Urinary retention (4) Diabetes mellitus (5) Failure to thrive (6) Renal failure (ARF), acute on chronic Review of Systems ROS Narrative cannot obtain given medical condition and age Physical Exam General Appearance: no apparent distress Lines, tubes and drains: peripheral HEENT: mucous membranes moist Neck: normal inspection Respiratory/Chest: normal breath sounds, no respiratory distress, no accessory muscle use Cardiovascular/Chest: regular rhythm Abdomen: soft, no organomegaly, no mass Extremities: other Skin Exam: warm/dry, other Neurologic: alert Last 24 Hour Vital Signs Date Time Temp Pulse Resp B/P (MAP) Pulse Ox O2 Delivery O2 Flow Rate FiO2 12/18/18 15:04 Room Air Laboratory Tests Test 12/18/18 15:25 White Blood Count Pending Red Blood Count Pending Hemoglobin Pending Hematocrit Pending Mean Corpuscular Volume Pending Mean Corpuscular Hemoglobin Pending Mean Corpuscular Hemoglobin Concent Pending Red Cell Distribution Width Pending Platelet Count Pending Mean Platelet Volume Pending Neutrophils (%) (Auto) Pending Lymphocytes (%) (Auto) Pending Monocytes (%) (Auto) Pending Eosinophils (%) (Auto) Pending Basophils (%) (Auto) Pending Sodium Level Pending Potassium Level Pending Chloride Level Pending Carbon Dioxide Level Pending Blood Urea Nitrogen Pending Creatinine Pending Estimat Glomerular Filtration Rate Pending Glucose Level Pending Calcium Level Pending Total Bilirubin Pending Aspartate Amino Transf (AST/SGOT) Pending Alanine Aminotransferase (ALT/SGPT) Pending Alkaline Phosphatase Pending Total Protein Pending Albumin Pending Globulin Pending Height (Feet): 5 Height (Inches): 2.00 Weight (Pounds): 93 Medications Current Medications Medications (Trade) Dose Ordered Sig/Javier Route PRN Reason Start Time Stop Time Status Last Admin Dose Admin Acetaminophen/ Hydrocodone Bitart ([place] 5/325) 1 tab Q6H PRN ORAL For Pain 12/18/18 15:15 12/25/18 15:14 UNV Amlodipine Besylate (Norvasc) 10 mg DAILY ORAL 12/19/18 09:00 01/18/19 08:59 UNV Carvedilol (Coreg) 6.25 mg EVERY 12 HOURS ORAL 12/18/18 21:00 01/17/19 20:59 UNV Diphenhydramine HCl (Benadryl) 50 mg Q4HR PRN ORAL Itching 12/18/18 15:15 01/17/19 15:14 UNV Doxazosin Mesylate (Cardura) 2 mg BID ORAL 12/18/18 18:00 01/17/19 17:59 UNV Ferrous Sulfate (Feosol) 325 mg THREE TIMES A DAY ORAL 12/18/18 18:00 01/17/19 17:59 UNV Folic Acid (Folate) 1 mg DAILY ORAL 12/19/18 09:00 01/18/19 08:59 UNV Hydralazine HCl (Apresoline) 50 mg EVERY 6 HOURS PRN ORAL For High Blood Pressure 12/18/18 14:45 01/17/19 14:44 UNV Levothyroxine Sodium (Synthroid) 50 mcg DAILY@0630 ORAL 12/19/18 06:30 01/18/19 06:29 UNV Loperamide HCl (Imodium) 2 mg Q6H PRN ORAL Diarrhea 12/18/18 14:45 01/17/19 14:44 UNV Mirtazapine (Remeron) 15 mg BEDTIME ORAL 12/18/18 21:00 01/17/19 20:59 UNV Pantoprazole (Protonix) 40 mg DAILY ORAL 12/19/18 09:00 01/18/19 08:59 UNV Quetiapine Fumarate (SEROquel) 100 mg BEDTIME ORAL 12/18/18 21:00 01/17/19 20:59 UNV Sevelamer Carbonate (Renvela) 800 mg THREE TIMES A DAY ORAL 12/18/18 18:00 01/17/19 17:59 UNV Assessment/Plan Problem List: (1) Urinary retention ICD Codes: R33.9 - Retention of urine, unspecified SNOMED: 737038161 (2) Diabetes mellitus ICD Codes: E11.9 - Type 2 diabetes mellitus without complications SNOMED: 47488977 (3) Failure to thrive Assessment & Plan: Will continue with nutritional optimization while in hospital nutrition consult ordered SNOMED: 67818415 (4) Anemia due to acute blood loss ICD Codes: D62 - Acute posthemorrhagic anemia SNOMED: 183976267 (5) Abscess of right hip Assessment & Plan: Abscess of right hip s/p I&D and debridement. was very large concerning wound that requiring prolonged care and still continues to require care as wound is open. wound evaluated at bedside and now much improved. a significant portion of wound has closed and healed. open debridement area now much smaller and with granulation tissue. no signs of active infection. no purulent drainage, remainder of wound reapproximating well. will continue with wound management until completely healed. apply hydrogel infused gauze to right hip open wound daily, cover with foam dressing, change daily. wash wound with dressing changes heel protectors turn q2h off load pressure will monitor while in hospital and care for patient and wounds thank you ICD Codes: L02.415 - Cutaneous abscess of right lower limb SNOMED: 336987 (6) Renal failure (ARF), acute on chronic ICD Codes: N17.9 - Acute kidney failure, unspecified; N18.9 - Chronic kidney disease, unspecified SNOMED: 492776627 Camilo James Dec 18, 2018 15:49
--- NOTE | 2018-12-18 15:50 | NUR ---
NURSE NOTES: Pt was admitted from [facility], pt arrived in the ED and IV was placed there, LT hand/wrist 20g, pt as admitted for renal failure, lab work up to be done, pt has no belongings as she came with hospital gown on, Cardiac montior in place, Pt denies pain but is itchy, called for orders, pt placed on bed low position, bed alarm, IV intact and patent, call light next to pt, pics taken of old abscess wound.. Vitals WNL but BP slightly elevated
[2018-12-18 15:54] LABS: ALANINE AMINOTRANSFERASE 17 U/L (12-78); ALBUMIN 2.6 G/DL (3.4-5.0); ALBUMIN/GLOBULIN RATIO 0.7 (1.0-2.7); ALKALINE PHOSPHATASE 91 U/L (46-116); ASPARTATE AMINO TRANSFERASE 17 U/L (15-37); BILIRUBIN,TOTAL 0.2 MG/DL (0.2-1.0)
[2018-12-18 17:33] VITALS: BP 141/66
[2018-12-18] MEDS: Doxazosin 1mg Tab ORAL SCH (17:34)
[2018-12-18] MEDS: Renvela 800mg Pkt ORAL SCH (17:35)
[2018-12-18] MEDS ORDERED: Doxazosin 1mg Tab ORAL SCH (18:00)
[2018-12-18] MEDS: HYDROcodone/Acetamin 5/325 tab ORAL PRN (19:16)
--- NOTE | 2018-12-18 19:22 | NUR ---
HAND-OFF: Report given to John Santiago.
--- NOTE | 2018-12-18 19:55 | NUR ---
NURSE NOTES: Received pt and report from SANYA Ortiz. Observed pt resting in bed with both eyes open. Pt is A/Ox1. placing judge is in placed, IV site intact, asymptomatic, and patent. Bed is in the lowest position and locked. Call light within reach. No signs/symptoms of acute distress noted at this time. Will continue of plan of care.
[2018-12-18 20:00] VITALS: BP 147/61
[2018-12-18] MEDS: Carvedilol 6.25mg Tab ORAL SCH (20:44)
[2018-12-18] MEDS ORDERED: Depakote ER 250mg tab ORAL SCH (21:00)
[2018-12-18] MEDS ORDERED: Carvedilol 6.25mg Tab ORAL SCH (21:00)
[2018-12-19] VITALS: BP 140/55
[2018-12-19 04:00] VITALS: BP 142/69
--- NOTE | 2018-12-19 07:38 | NUR ---
NURSE NOTES: Received report from [place]/RN, Patient is awake, eating breakfast, No acute distress/SOB noted. IV site intact, asymptomatic, and patent. Bed is in the lowest position and locked. Call light within reach. Belonging within reach. Will continue of plan of care.
[2018-12-19 08:00] VITALS: BP 144/76
--- NOTE | 2018-12-19 08:09 | NUR ---
HAND-OFF: Report given to SANYA Keyes.
[2018-12-19 08:16] LABS: BASOPHILS % (AUTO) 1.5 % (0.0-2.0); HEMATOCRIT 28.5 % (37.0-47.0); HEMOGLOBIN 8.8 G/DL (12.0-16.0); LYMPHOCYTES % (AUTO) 51.1 % (20.0-45.0); MEAN CORPUSCULAR VOLUME 96 FL (80-99); MONOCYTES % (AUTO) 4.8 % (1.0-10.0); NEUTROPHILS % (AUTO) 34.5 % (45.0-75.0); PLATELET COUNT 481 K/UL (150-450); RED BLOOD COUNT 2.97 M/UL (4.20-5.40); RED CELL DISTRIBUTION WIDTH 17.9 % (11.6-14.8); WHITE BLOOD COUNT 7.2 K/UL (4.8-10.8)
[2018-12-19] MEDS: Renvela 800mg Pkt ORAL SCH (08:16)
[2018-12-19] MEDS: Doxazosin 1mg Tab ORAL SCH ×2 (08:16→17:53)
[2018-12-19] MEDS: Carvedilol 6.25mg Tab ORAL SCH ×2 (08:17→20:51)
[2018-12-19 08:49] LABS: % IRON SATURATION 25 % (15-50); IRON 37 ug/dL (50-175); TOTAL IRON BINDING CAPACITY 150 ug/dL (250-450)
[2018-12-19 09:02] LABS: CHOLESTEROL 164 MG/DL (< 200); FERRITIN 196 NG/ML (8-388); HDL CHOLESTEROL 55 MG/DL (40-60); PHOSPHORUS 5.4 MG/DL (2.5-4.9); TRIGLYCERIDES 122 MG/DL (30-150)
[2018-12-19 09:03] LABS: ALANINE AMINOTRANSFERASE 18 U/L (12-78); ALBUMIN 2.7 G/DL (3.4-5.0); ALBUMIN/GLOBULIN RATIO 0.7 (1.0-2.7); ALKALINE PHOSPHATASE 78 U/L (46-116); ANION GAP 12 mmol/L (5-15); ASPARTATE AMINO TRANSFERASE 16 U/L (15-37); BILIRUBIN,TOTAL 0.3 MG/DL (0.2-1.0); BLOOD UREA NITROGEN 61 mg/dL (7-18); CALCIUM 9.3 MG/DL (8.5-10.1); CARBON DIOXIDE 19 MMOL/L (21-32); CHLORIDE 113 MMOL/L (98-107); CREATININE 5.4 MG/DL (0.55-1.30); SODIUM 144 MMOL/L (136-145)
--- NOTE | 2018-12-19 10:43 | Consultation ---
Consult Note Consult Note patient admitted for initiation of HD Last admission family refused dialysis but now they are agreeable and asking for HD PH: (1) Abscess of right hip (2) Renal failure (ARF), acute on chronic (3) Urinary retention (4) Diabetes mellitus (5) Failure to thrive examined data reviewed discussed with RN . Assessment/Plan Renal failure: - Chronic: Due to underlying ?HTN / DM ... - s/p mild Urinary Retention in ANJEL HyperGlycemia / DM / Proteinuria Anemia s/p Right hip abcess UTI . Plan adjust BP meds Renal diet Permacath in am by radiology Keep BP and BS in check HEP Panel ordered per orders William Blackwood MD Dec 19, 2018 10:43
[2018-12-19] MEDS ORDERED: HydrALAZINE 25mg tab ORAL PRN (10:45)
[2018-12-19 12:00] VITALS: BP 141/65
--- NOTE | 2018-12-19 13:57 | Surgery Progress Note ---
Surgery Progress Note Subjective Additional Comments no acute events. resting comfortable. labs stable. wound clean with dressings intact Objective Last 24 Hour Vital Signs Date Time Temp Pulse Resp B/P (MAP) Pulse Ox O2 Delivery O2 Flow Rate FiO2 12/19/18 12:00 97.1 54 18 141/65 (90) 96 12/19/18 12:00 54 12/19/18 09:00 Room Air 12/19/18 08:17 71 144/76 12/19/18 08:16 71 144/76 12/19/18 08:00 97.2 71 18 144/76 (98) 98 12/19/18 08:00 60 12/19/18 04:00 97.6 66 18 142/69 (93) 99 12/19/18 04:00 66 12/19/18 00:00 97.2 68 17 140/55 (83) 95 12/19/18 00:00 68 12/18/18 21:00 Room Air 12/18/18 20:44 77 147/61 12/18/18 20:00 97.6 77 18 147/61 (89) 96 12/18/18 20:00 86 12/18/18 17:33 91 141/66 (91) 12/18/18 16:09 160/72 12/18/18 15:48 97.4 75 18 160/72 (101) 99 12/18/18 15:04 Room Air I&O Intake and Output 12/18/18 12/19/18 19:00 07:00 Intake Total 140 ml Balance 140 ml Intake Oral 140 ml # Voids 2 Dressing: saturated Wound: clean Cardiovascular: RSR Respiratory: clear Abdomen: soft, present bowel sounds, non-distended Extremities: no tenderness, no cyanosis, other Laboratory Tests Test 12/18/18 15:25 12/19/18 06:35 White Blood Count 9.6 K/UL (4.8-10.8) 7.2 K/UL (4.8-10.8) Red Blood Count 2.83 M/UL (4.20-5.40) L 2.97 M/UL (4.20-5.40) L Hemoglobin 8.4 G/DL (12.0-16.0) L 8.8 G/DL (12.0-16.0) L Hematocrit 26.7 % (37.0-47.0) L 28.5 % (37.0-47.0) L Mean Corpuscular Volume 95 FL (80-99) 96 FL (80-99) Mean Corpuscular Hemoglobin 29.8 PG (27.0-31.0) 29.7 PG (27.0-31.0) Mean Corpuscular Hemoglobin Concent 31.5 G/DL (32.0-36.0) L 30.9 G/DL (32.0-36.0) L Red Cell Distribution Width 17.4 % (11.6-14.8) H 17.9 % (11.6-14.8) H Platelet Count 480 K/UL (150-450) H 481 K/UL (150-450) H Mean Platelet Volume 4.7 FL (6.5-10.1) L 4.5 FL (6.5-10.1) L Neutrophils (%) (Auto) % (45.0-75.0) 34.5 % (45.0-75.0) L Lymphocytes (%) (Auto) % (20.0-45.0) 51.1 % (20.0-45.0) H Monocytes (%) (Auto) % (1.0-10.0) 4.8 % (1.0-10.0) Eosinophils (%) (Auto) % (0.0-3.0) 8.0 % (0.0-3.0) H Basophils (%) (Auto) % (0.0-2.0) 1.5 % (0.0-2.0) Differential Total Cells Counted 100 Neutrophils % (Manual) 40 % (45-75) L Lymphocytes % (Manual) 54 % (20-45) H Monocytes % (Manual) 3 % (1-10) Eosinophils % (Manual) 3 % (0-3) Basophils % (Manual) 0 % (0-2) Band Neutrophils 0 % (0-8) Nucleated Red Blood Cells 2 /100 WBC Platelet Estimate Increased H Platelet Morphology Normal Polychromasia 1+ Hypochromasia 1+ Anisocytosis 1+ Sodium Level 138 MMOL/L (136-145) 144 MMOL/L (136-145) Potassium Level 4.0 MMOL/L (3.5-5.1) 5.0 MMOL/L (3.5-5.1) Chloride Level 109 MMOL/L (98-107) H 113 MMOL/L (98-107) H Carbon Dioxide Level 22 MMOL/L (21-32) 19 MMOL/L (21-32) L Anion Gap 7 mmol/L (5-15) 12 mmol/L (5-15) Blood Urea Nitrogen 59 mg/dL (7-18) H 61 mg/dL (7-18) H Creatinine 5.2 MG/DL (0.55-1.30) H 5.4 MG/DL (0.55-1.30) H Estimat Glomerular Filtration Rate mL/min (>60) mL/min (>60) Glucose Level 144 MG/DL (74-106) H 113 MG/DL (74-106) H Calcium Level 8.7 MG/DL (8.5-10.1) 9.3 MG/DL (8.5-10.1) Total Bilirubin 0.2 MG/DL (0.2-1.0) 0.3 MG/DL (0.2-1.0) Aspartate Amino Transf (AST/SGOT) 17 U/L (15-37) 16 U/L (15-37) Alanine Aminotransferase (ALT/SGPT) 17 U/L (12-78) 18 U/L (12-78) Alkaline Phosphatase 91 U/L (46-116) 78 U/L (46-116) Total Protein 6.4 G/DL (6.4-8.2) 6.8 G/DL (6.4-8.2) Albumin 2.6 G/DL (3.4-5.0) L 2.7 G/DL (3.4-5.0) L Globulin 3.8 g/dL 4.1 g/dL Albumin/Globulin Ratio 0.7 (1.0-2.7) L 0.7 (1.0-2.7) L Prothrombin Time 10.7 SEC (9.30-11.50) Prothromb Time International Ratio 1.0 (0.9-1.1) Activated Partial Thromboplast Time 27 SEC (23-33) Hemoglobin A1c 5.7 % (4.3-6.0) Uric Acid 6.6 MG/DL (2.6-7.2) Phosphorus Level 5.4 MG/DL (2.5-4.9) H Magnesium Level 1.9 MG/DL (1.8-2.4) Iron Level 37 ug/dL (50-175) L Total Iron Binding Capacity 150 ug/dL (250-450) L Percent Iron Saturation 25 % (15-50) Unsaturated Iron Binding 113 ug/dL (112-346) Ferritin 196 NG/ML (8-388) C-Reactive Protein, Quantitative < 0.4 mg/dL (0.00-0.90) Pro-B-Type Natriuretic Peptide 2607 pg/mL (0-125) H Triglycerides Level 122 MG/DL (30-150) Cholesterol Level 164 MG/DL (< 200) LDL Cholesterol 76 mg/dL (<100) HDL Cholesterol 55 MG/DL (40-60) Cholesterol/HDL Ratio 3.0 (3.3-4.4) L Vitamin B12 Level 668 PG/ML (193-986) Folate 11.8 NG/ML (8.6-58.9) Thyroid Stimulating Hormone (TSH) 3.877 uiU/mL (0.358-3.740) Plan Problems: (1) Urinary retention (2) Diabetes mellitus (3) Failure to thrive (0-17) Assessment & Plan: Will continue with nutritional optimization while in hospital nutrition consult ordered (4) Anemia due to acute blood loss (5) Abscess of right hip Assessment & Plan: Abscess of right hip s/p I&D and debridement. was very large concerning wound that requiring prolonged care and still continues to require care as wound is open. wound evaluated at bedside and now much improved. a significant portion of wound has closed and healed. open debridement area now much smaller and with granulation tissue. no signs of active infection. no purulent drainage, remainder of wound reapproximating well. will continue with wound management until completely healed. apply hydrogel infused gauze to right hip open wound daily, cover with foam dressing, change daily. wash wound with dressing changes heel protectors turn q2h off load pressure will monitor while in hospital and care for patient and wounds thank you (6) Renal failure (ARF), acute on chronic Additional Comments permacath by radiology in AM for HD Camilo James Dec 19, 2018 13:57
[2018-12-19 16:00] VITALS: BP 126/56
[2018-12-19] MEDS: Heparin 5000 units/ml inj SUBQ SCH ×2 (16:00→20:53)
--- NOTE | 2018-12-19 17:30 | History and Physical Report ---
DATE OF ADMISSION: 12/18/2018 CHIEF COMPLAINT: Renal failure. HISTORY OF PRESENT ILLNESS: The patient is a 78-year-old female well known to me. She has a history of a right thigh abscess status post I and D, chronic kidney disease, hypertension, and schizophrenia. She was recently hospitalized with a large thigh abscess. She underwent incision and drainage. Hospital course was complicated by poor p.o. intake, dysphagia, as well as renal failure. At that time, G-tube and dialysis were recommended, but family declined. The patient was discharged to a [facility] facility. She was continued on rehabilitation. She has been eating better. She has become more awake and alert. According to the patient's son, the patient has requested aggressive care. Recent laboratory showed that renal function did not improve and the patient was having severe itching and felt to be likely secondary to uremia. The patient is now admitted for possible initiation of hemodialysis. PAST MEDICAL HISTORY: As above. PAST SURGICAL HISTORY: I and D of the hip. CURRENT MEDICATIONS: Reconciled and reviewed. ALLERGIES: None. FAMILY HISTORY: None. SOCIAL HISTORY: There is no known history of tobacco, ethanol, or drugs. REVIEW OF SYSTEMS: Unobtainable as the patient is mostly confused. PHYSICAL EXAMINATION: Temperature 97.1, pulse 54, respirations 18, and blood pressure 141/65. GENERAL: The patient is a well-developed, chronically ill-appearing thin female, in no apparent distress. She is awake and alert. HEART: Regular rate and rhythm. LUNGS: Clear. ABDOMEN: Soft, nontender, and nondistended. EXTREMITIES: Without clubbing or cyanosis. There is a large right thigh wound, which is clean. LABORATORY DATA: White count 9, hemoglobin 8.4, hematocrit 26, and platelets of 480,000. Sodium 144, potassium 5, chloride 113, bicarb 19, BUN 61, and creatinine is 5.4. ASSESSMENT: This is an elderly female, admitted with complaints of chronic kidney disease, renal failure, uremia, right thigh abscess, hypertension, and schizophrenia. PLAN: 1. Renal evaluation for possible dialysis. 2. Continue outpatient cardiac regimen and psych medications. 3. P.r.n. anxiolytics. 4. Restraints as needed. Nate Beltran M.D. DR: JADIEL JOB#: [id number] CC:
[2018-12-19] MEDS: HYDROcodone/Acetamin 5/325 tab ORAL PRN (18:00)
[2018-12-19] MEDS ORDERED: TYLENOL650 MG RECTAL (19:04)
[2018-12-19] MEDS ORDERED: ZOFRAN ODT8 MG SL (19:04)
[2018-12-19] MEDS ORDERED: DOXAZOSIN MESYLA2 MG ORAL (19:04)
[2018-12-19] MEDS ORDERED: MORPHINE S100 MG/5 M PO (19:04)
[2018-12-19] MEDS ORDERED: LORAZEPAM2 MG/1 M1 SL (19:04)
[2018-12-19] MEDS ORDERED: RENVELA800 MG ORAL (19:04)
[2018-12-19] MEDS ORDERED: ACETAMINOPHEN325 M1 ORAL (19:04)
[2018-12-19] MEDS ORDERED: DIPHENHYDRAMINE50 M1 ORAL (19:08)
--- NOTE | 2018-12-19 19:30 | NUR ---
NURSE NOTES: Received pt and report from SANYA Keyes. Observed pt resting in bed with both eyes open. Pt is A/Ox1. ekg monitor tech is in placed, IV site intact, asymptomatic, and patent. Bed is in the lowest position and locked. Call light within reach. Pt has Permacath placement scheduled for tomorrow. Consent signed by pt's son. No signs/symptoms of acute distress noted at this time. Will continue of plan of care.
--- NOTE | 2018-12-19 19:39 | NUR ---
HAND-OFF: Report given to Marbella/RN, Patient is in stable condition, Endorsed plan of care.
[2018-12-19 20:00] VITALS: BP 142/57
[2018-12-20] VITALS (15 sets, daily range): BP systolic 118–169; BP diastolic 50–76
[2018-12-20 06:59] LABS: BASOPHILS % (AUTO) 1.4 % (0.0-2.0); EOSINOPHILS % (AUTO) 6.1 % (0.0-3.0); HEMATOCRIT 29.7 % (37.0-47.0); HEMOGLOBIN 9.5 G/DL (12.0-16.0); LYMPHOCYTES % (AUTO) 54.4 % (20.0-45.0); MEAN CORPUSCULAR VOLUME 95 FL (80-99); MONOCYTES % (AUTO) 4.3 % (1.0-10.0); NEUTROPHILS % (AUTO) 33.8 % (45.0-75.0); PLATELET COUNT 545 K/UL (150-450); RED BLOOD COUNT 3.14 M/UL (4.20-5.40); RED CELL DISTRIBUTION WIDTH 17.8 % (11.6-14.8); WHITE BLOOD COUNT 9.3 K/UL (4.8-10.8)
[2018-12-20 07:01] LABS: INR 0.9 (0.9-1.1)
[2018-12-20 07:09] LABS: ALANINE AMINOTRANSFERASE 14 U/L (12-78); ALBUMIN 2.7 G/DL (3.4-5.0); ALBUMIN/GLOBULIN RATIO 0.6 (1.0-2.7); ALKALINE PHOSPHATASE 81 U/L (46-116); ANION GAP 10 mmol/L (5-15); ASPARTATE AMINO TRANSFERASE 17 U/L (15-37); BILIRUBIN,TOTAL 0.2 MG/DL (0.2-1.0); BLOOD UREA NITROGEN 61 mg/dL (7-18); CALCIUM 9.1 MG/DL (8.5-10.1); CARBON DIOXIDE 20 MMOL/L (21-32); CHLORIDE 113 MMOL/L (98-107); CREATININE 5.6 MG/DL (0.55-1.30); POTASSIUM 4.7 MMOL/L (3.5-5.1); SODIUM 143 MMOL/L (136-145)
--- NOTE | 2018-12-20 07:19 | NUR ---
NURSE NOTES: Received report from Marbella/RN, Patient awake and alert. No signs of acute distress/SOB noted; IV patent and flushed. No erythema or bleeding around the site noted. Bed at lowest position and locked, Siderails up x3. Call light within reach. Will continue plan of care.
--- NOTE | 2018-12-20 07:28 | NUR ---
HAND-OFF: Report given to SANYA Keyes.
[2018-12-20] MEDS: Heparin 5000 units/ml inj SUBQ SCH ×2 (09:00→21:00)
[2018-12-20] MEDS: Doxazosin 1mg Tab ORAL SCH ×3 (09:06→22:29)
[2018-12-20] MEDS: Carvedilol 6.25mg Tab ORAL SCH (09:07)
--- NOTE | 2018-12-20 10:35 | NUR ---
NURSE NOTES: WOUND CARE NOTES:Pt presented on admission with generalized scaly rash posterior aspects of both ears, R breast and R and L axillae and both forearms including web spaces of R hand , Bilat groin.lumabar area, and posterior R knee and both tibias. Pt observed scratching at skin .Informed by primary nurse pt was treated with Elimite previous day. Pt also presented on admission with full thickness wound with tunneling R trochanter/R hip (L)6cm x (W)1.8cm x (D)1cm, tunneling clockwise 7-12 by 6.6cm @7'clock. [place] granulation noted at base of wound.Periwound without erythema or induration. Small amt non-odorous serous exudate noted. Sacrum is dry and blanchable with several small dry scaled lesions. Both heels are soft but blanchable .No other skin concerns noted. Tx.Plan:Cleanse R hip wound with saline. Loosely pack with Hydrogel infused kerlix gauze .Apply Cavilon periwound. Cover with Optifoam drsg Daily and prn. Apply Moisture Barrier Paste to Sacrum. Cover with Optifoam drsg. Change every 3 days and prn. Apply Cavilon Skin Barrier to both heels. Cover each heel with Optifoam drsg. Change every 7 days and prn. APM/ELVIA mattress overlay. Reposition at least every 2hours or as tolerated. Off-load heels with pillow.
--- NOTE | 2018-12-20 12:16 | NUR ---
RD ASSESSMENT & RECOMMENDATIONS SEE CARE ACTIVITY FOR COMPLETE ASSESSMENT DAILY ESTIMATED NEEDS: Needs based on Wounds, DM, ESRD + possible HD/ 39kg 35-40 kcals/kg 3218-7745 total kcals (WITHOUT HD: 0.8-1.1) (WITH HD: 1.25-1.8) g protein/kg (WITHOUT HD: 31-43) (WITH HD: 49-70) g total protein 20-25 mL/kg 780-975 total fluid mLs NUTRITION DIAGNOSIS: * Increased kcal and protein needs r/t wound healing, underweight status, HD needs as evidenced by s/p recent I&D R hip abscess with excisional debridement, pt is underweight per guidelines, generalized moderate wasting, currently w/ an order for PermCath for HD initiation. * Swallowing and chewing difficulty R/T dysphagia, edentulous status as evidenced by pt on pureed moist texture diet. CURRENT DIET:Renal, pureed moist PO DIET RECOMMENDATIONS: RENAL DIET (texture per JOGGLE PRESS OPERATOR) ADDITIONAL RECOMMENDATIONS: 1) Calibrated bed scale wt for accurate CBW 2) Monitor lytes daily- phos elev 3) WOUND CARE: add Nephrovite x 1, Balta 1pkt BID 4) Monitor for HD initiation- w/ an order for PermCath 5) JOGGLE PRESS OPERATOR evaluation for appropriate texture 6) Monitor BGs closely, need for NISS- h/o DM .
--- NOTE | 2018-12-20 12:31 | Nephrology Progress Note ---
Assessment/Plan Problem List: (1) ESRD (end stage renal disease) (2) Diabetes mellitus (3) Failure to thrive (0-17) (4) Anemia in CKD (chronic kidney disease) (5) Hypertensive kidney disease (6) Malnutrition Assessment Renal failure: - Chronic: Due to underlying ?HTN / DM ... - s/p mild Urinary Retention in ANJEL HyperGlycemia / DM / Proteinuria Anemia s/p Right hip abcess UTI . Plan Plan adjust BP meds Renal diet Permacath in am by radiology Keep BP and BS in check HEP Panel ordered per orders start Megace HD after insertion of cath Subjective ROS Limited/Unobtainable: No Constitutional: Reports: malaise, weakness Objective Objective Last 24 Hour Vital Signs Date Time Temp Pulse Resp B/P (MAP) Pulse Ox O2 Delivery O2 Flow Rate FiO2 12/20/18 12:00 97.3 58 20 169/63 (98) 99 12/20/18 09:07 71 162/56 12/20/18 09:06 71 162/56 12/20/18 09:00 Room Air 12/20/18 08:00 63 12/20/18 08:00 97.4 71 18 162/56 (91) 97 12/20/18 04:00 98.0 71 17 138/55 (82) 95 12/20/18 04:00 67 12/20/18 00:00 98.1 59 16 121/70 (87) 96 12/20/18 00:00 59 12/19/18 21:00 Room Air 12/19/18 20:51 60 142/57 12/19/18 20:00 60 12/19/18 20:00 98.3 60 17 142/57 (85) 96 12/19/18 16:00 97.2 64 18 126/56 (79) 99 12/19/18 16:00 58 Intake and Output 12/19/18 12/20/18 19:00 07:00 Intake Total 510 ml Balance 510 ml Intake Oral 510 ml # Voids 2 2 Laboratory Tests 12/20/18 05:38: White Blood Count 9.3, Red Blood Count 3.14L, Hemoglobin 9.5L, Hematocrit 29.7L , Mean Corpuscular Volume 95, Mean Corpuscular Hemoglobin 30.3, Mean Corpuscular Hemoglobin Concent 32.1, Red Cell Distribution Width 17.8H, Platelet Count 545H, Mean Platelet Volume 4.5L, Neutrophils (%) (Auto) 33.8L, Lymphocytes (%) (Auto) 54.4H, Monocytes (%) (Auto) 4.3, Eosinophils (%) (Auto) 6.1H, Basophils (%) (Auto) 1.4, Prothrombin Time 10.1, Prothromb Time International Ratio 0.9, Activated Partial Thromboplast Time 26, Sodium Level 143, Potassium Level 4.7, Chloride Level 113H, Carbon Dioxide Level 20L, Anion Gap 10, Blood Urea Nitrogen 61H, Creatinine 5.6H, Estimat Glomerular Filtration Rate , Glucose Level 110H, Calcium Level 9.1, Total Bilirubin 0.2, Aspartate Amino Transf (AST/SGOT) 17, Alanine Aminotransferase (ALT/SGPT) 14, Alkaline Phosphatase 81, Total Protein 7.1, Albumin 2.7L, Globulin 4.4, Albumin/Globulin Ratio 0.6L, Hepatitis B Surface Antigen [Pending], Hepatitis B Surface Antibody , Quant [Pending], Hepatitis C Antibody [Pending] Height (Feet): 5 Height (Inches): 2.00 Weight (Pounds): 93 General Appearance: no apparent distress, lethargic Cardiovascular: normal rate Respiratory/Chest: decreased breath sounds Abdomen: soft William Blackwood MD Dec 20, 2018 12:31
[2018-12-20] MEDS ORDERED: LORazepam Inj 2mg/ml 1ml IV SCH (13:23)
--- NOTE | 2018-12-20 13:32 | General Progress Note ---
Assessment/Plan Problem List: (1) Diabetes mellitus ICD Codes: E11.9 - Type 2 diabetes mellitus without complications SNOMED: 10426761 (2) Anemia due to acute blood loss ICD Codes: D62 - Acute posthemorrhagic anemia SNOMED: 911776462 (3) Failure to thrive (0-17) ICD Codes: R62.51 - Failure to thrive (0-17) SNOMED: 458111656 (4) Abscess of right hip ICD Codes: L02.415 - Cutaneous abscess of right lower limb SNOMED: 005713 (5) Renal failure (ARF), acute on chronic ICD Codes: N17.9 - Acute kidney failure, unspecified; N18.9 - Chronic kidney disease, unspecified SNOMED: 018953818 (6) ESRD (end stage renal disease) ICD Codes: N18.6 - End stage renal disease SNOMED: 33803565 (7) Anemia in CKD (chronic kidney disease) ICD Codes: N18.9 - Chronic kidney disease, unspecified; D63.1 - Anemia in chronic kidney disease SNOMED: 382581343 (8) Hypertensive kidney disease ICD Codes: I12.9 - Hypertensive chronic kidney disease with stage 1 through stage 4 chronic kidney disease, or unspecified chronic kidney disease SNOMED: 54265969 Status: stable Assessment/Plan: s/p elimite x 1 perm cath wound care per surgery anxiolytics Subjective ROS Limited/Unobtainable: No Constitutional: Reports: malaise, weakness HEENT: Reports: no symptoms Cardiovascular: Reports: no symptoms Respiratory: Reports: no symptoms Gastrointestinal/Abdominal: Reports: no symptoms Genitourinary: Reports: no symptoms Neurologic/Psychiatric: Reports: emotional problems Endocrine: Reports: no symptoms Hematologic/Lymphatic: Reports: anemia Allergies: Coded Allergies: No Known Allergies (Unverified , 11/12/18) All Systems: reviewed and negative except above Subjective no events. s/p elimite rx. +pruritis Objective Last 24 Hour Vital Signs Date Time Temp Pulse Resp B/P (MAP) Pulse Ox O2 Delivery O2 Flow Rate FiO2 12/20/18 12:38 169/63 12/20/18 12:00 97.3 58 20 169/63 (98) 99 12/20/18 12:00 63 12/20/18 12:00 53 12/20/18 09:07 71 162/56 12/20/18 09:06 71 162/56 12/20/18 09:00 Room Air 12/20/18 08:00 63 12/20/18 08:00 97.4 71 18 162/56 (91) 97 12/20/18 04:00 98.0 71 17 138/55 (82) 95 12/20/18 04:00 67 12/20/18 00:00 98.1 59 16 121/70 (87) 96 12/20/18 00:00 59 12/19/18 21:00 Room Air 12/19/18 20:51 60 142/57 12/19/18 20:00 60 12/19/18 20:00 98.3 60 17 142/57 (85) 96 12/19/18 16:00 97.2 64 18 126/56 (79) 99 12/19/18 16:00 58 Intake and Output 12/19/18 12/20/18 19:00 07:00 Intake Total 510 ml Balance 510 ml Intake Oral 510 ml # Voids 2 2 Laboratory Tests 12/20/18 05:38: White Blood Count 9.3, Red Blood Count 3.14L, Hemoglobin 9.5L, Hematocrit 29.7L , Mean Corpuscular Volume 95, Mean Corpuscular Hemoglobin 30.3, Mean Corpuscular Hemoglobin Concent 32.1, Red Cell Distribution Width 17.8H, Platelet Count 545H, Mean Platelet Volume 4.5L, Neutrophils (%) (Auto) 33.8L, Lymphocytes (%) (Auto) 54.4H, Monocytes (%) (Auto) 4.3, Eosinophils (%) (Auto) 6.1H, Basophils (%) (Auto) 1.4, Prothrombin Time 10.1, Prothromb Time International Ratio 0.9, Activated Partial Thromboplast Time 26, Sodium Level 143, Potassium Level 4.7, Chloride Level 113H, Carbon Dioxide Level 20L, Anion Gap 10, Blood Urea Nitrogen 61H, Creatinine 5.6H, Estimat Glomerular Filtration Rate , Glucose Level 110H, Calcium Level 9.1, Total Bilirubin 0.2, Aspartate Amino Transf (AST/SGOT) 17, Alanine Aminotransferase (ALT/SGPT) 14, Alkaline Phosphatase 81, Total Protein 7.1, Albumin 2.7L, Globulin 4.4, Albumin/Globulin Ratio 0.6L, Hepatitis B Surface Antigen [Pending], Hepatitis B Surface Antibody , Quant [Pending], Hepatitis C Antibody [Pending] Height (Feet): 5 Height (Inches): 2.00 Weight (Pounds): 93 General Appearance: WD/WN, alert, confused Cardiovascular: regular rhythm Respiratory/Chest: lungs clear, normal breath sounds Abdomen: normal bowel sounds, non tender, soft, no organomegaly Edema: no edema noted Arm (L), no edema noted Arm (R), no edema noted Leg (L), no edema noted Leg (R), no edema noted Pedal (L), no edema noted Pedal (R), no edema noted 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
--- NOTE | 2018-12-20 13:40 | NUR ---
NURSE NOTES: Patient went down stairs for procedure.
[2018-12-20] MEDS ORDERED: Heparin1,000 units/500ml Premix(Conc:2 units/ml) INJ PRN (13:45)
[2018-12-20] MEDS ORDERED: Heparin Sod 1000 units/ml 10ml INJ PRN (13:45)
[2018-12-20] MEDS ORDERED: Lidocaine 2% 20mg/ml/Epi 0.005mg/ml 20ml vial INJ PRN (13:45)
[2018-12-20] MEDS ORDERED: Lidocaine 1% Plain 30 ml INJ ONE (14:03)
--- NOTE | 2018-12-20 14:10 | Surgery Progress Note ---
Surgery Progress Note Subjective Additional Comments no acute events. comfortable. stable dressings changed. wound clean labs noted HD soon Objective Last 24 Hour Vital Signs Date Time Temp Pulse Resp B/P (MAP) Pulse Ox O2 Delivery O2 Flow Rate FiO2 12/20/18 13:00 121/50 (73) 12/20/18 12:38 169/63 12/20/18 12:00 97.3 58 20 169/63 (98) 99 12/20/18 12:00 63 12/20/18 12:00 53 12/20/18 09:07 71 162/56 12/20/18 09:06 71 162/56 12/20/18 09:00 Room Air 12/20/18 08:00 63 12/20/18 08:00 97.4 71 18 162/56 (91) 97 12/20/18 04:00 98.0 71 17 138/55 (82) 95 12/20/18 04:00 67 12/20/18 00:00 98.1 59 16 121/70 (87) 96 12/20/18 00:00 59 12/19/18 21:00 Room Air 12/19/18 20:51 60 142/57 12/19/18 20:00 60 12/19/18 20:00 98.3 60 17 142/57 (85) 96 12/19/18 16:00 97.2 64 18 126/56 (79) 99 12/19/18 16:00 58 I&O Intake and Output 12/19/18 12/20/18 19:00 07:00 Intake Total 510 ml Balance 510 ml Intake Oral 510 ml # Voids 2 2 Dressing: saturated Wound: clean Cardiovascular: RSR Respiratory: clear Abdomen: soft, flat, non-tender, present bowel sounds Extremities: edema, no tenderness, no cyanosis Laboratory Tests Test 12/20/18 05:38 White Blood Count 9.3 K/UL (4.8-10.8) Red Blood Count 3.14 M/UL (4.20-5.40) L Hemoglobin 9.5 G/DL (12.0-16.0) L Hematocrit 29.7 % (37.0-47.0) L Mean Corpuscular Volume 95 FL (80-99) Mean Corpuscular Hemoglobin 30.3 PG (27.0-31.0) Mean Corpuscular Hemoglobin Concent 32.1 G/DL (32.0-36.0) Red Cell Distribution Width 17.8 % (11.6-14.8) H Platelet Count 545 K/UL (150-450) H Mean Platelet Volume 4.5 FL (6.5-10.1) L Neutrophils (%) (Auto) 33.8 % (45.0-75.0) L Lymphocytes (%) (Auto) 54.4 % (20.0-45.0) H Monocytes (%) (Auto) 4.3 % (1.0-10.0) Eosinophils (%) (Auto) 6.1 % (0.0-3.0) H Basophils (%) (Auto) 1.4 % (0.0-2.0) Prothrombin Time 10.1 SEC (9.30-11.50) Prothromb Time International Ratio 0.9 (0.9-1.1) Activated Partial Thromboplast Time 26 SEC (23-33) Sodium Level 143 MMOL/L (136-145) Potassium Level 4.7 MMOL/L (3.5-5.1) Chloride Level 113 MMOL/L (98-107) H Carbon Dioxide Level 20 MMOL/L (21-32) L Anion Gap 10 mmol/L (5-15) Blood Urea Nitrogen 61 mg/dL (7-18) H Creatinine 5.6 MG/DL (0.55-1.30) H Estimat Glomerular Filtration Rate mL/min (>60) Glucose Level 110 MG/DL (74-106) H Calcium Level 9.1 MG/DL (8.5-10.1) Total Bilirubin 0.2 MG/DL (0.2-1.0) Aspartate Amino Transf (AST/SGOT) 17 U/L (15-37) Alanine Aminotransferase (ALT/SGPT) 14 U/L (12-78) Alkaline Phosphatase 81 U/L (46-116) Total Protein 7.1 G/DL (6.4-8.2) Albumin 2.7 G/DL (3.4-5.0) L Globulin 4.4 g/dL Albumin/Globulin Ratio 0.6 (1.0-2.7) L Hepatitis B Surface Antigen Pending Hepatitis B Surface Antibody, Quant Pending Hepatitis C Antibody Pending Plan Problems: (1) Urinary retention (2) Diabetes mellitus (3) Failure to thrive (0-17) Assessment & Plan: Will continue with nutritional optimization while in hospital nutrition consult ordered (4) Anemia due to acute blood loss (5) Abscess of right hip Assessment & Plan: Abscess of right hip s/p I&D and debridement. was very large concerning wound that requiring prolonged care and still continues to require care as wound is open. wound evaluated at bedside and now much improved. a significant portion of wound has closed and healed. open debridement area now much smaller and with granulation tissue. no signs of active infection. no purulent drainage, remainder of wound reapproximating well. will continue with wound management until completely healed. apply hydrogel infused gauze to right hip open wound daily, cover with foam dressing, change daily. wash wound with dressing changes heel protectors turn q2h off load pressure will monitor while in hospital and care for patient and wounds thank you (6) Renal failure (ARF), acute on chronic (7) ESRD (end stage renal disease) (8) Anemia in CKD (chronic kidney disease) (9) Hypertensive kidney disease (10) Malnutrition Assessment & Plan: DAILY ESTIMATED NEEDS: Needs based on Wounds, DM, ESRD + possible HD/ 39kg 35-40 kcals/kg 8304-7686 total kcals (WITHOUT HD: 0.8-1.1) (WITH HD: 1.25-1.8) g protein/kg (WITHOUT HD: 31-43) (WITH HD: 49-70) g total protein 20-25 mL/kg 780-975 total fluid mLs NUTRITION DIAGNOSIS: * Increased kcal and protein needs r/t wound healing, underweight status, HD needs as evidenced by s/p recent I&D R hip abscess with excisional debridement, pt is underweight per guidelines, generalized moderate wasting, currently w/ an order for PermCath for HD initiation. * Swallowing and chewing difficulty R/T dysphagia, edentulous status as evidenced by pt on pureed moist texture diet. CURRENT DIET:Renal, pureed moist PO DIET RECOMMENDATIONS: RENAL DIET (texture per QUALITY ENGINEER MEDICAL DEVICE) ADDITIONAL RECOMMENDATIONS: 1) Calibrated bed scale wt for accurate CBW 2) Monitor lytes daily- phos elev 3) WOUND CARE: add Nephrovite x 1, Balta 1pkt BID 4) Monitor for HD initiation- w/ an order for PermCath 5) QUALITY ENGINEER MEDICAL DEVICE evaluation for appropriate texture 6) Monitor BGs closely, need for NISS- h/o DM Camilo James Dec 20, 2018 14:10
--- NOTE | 2018-12-20 14:23 | NUR ---
CASE MANAGEMENT:REVIEW 78 YR OLD FEMALE BIBA FROM [facility] SI: AC/CHR RENAL FAILURE. RT THIGH ABSCESS 97.4 75 18 160/72 99 ON RA H/H-8.4/26.7 BUN+61 CR+5.4 IS: CARDURA PO BID RENVELA PO TID IRON PO TID HYDRALAZINE PO Q6HRS PRN : DIRECTLY ADMITTED TO TELEMETRY 12/20/18 SI: AC/CHR RENAL FAILURE RT HIP ABSCESS 97.3 58 20 169/63 99% ON RA BUN+61 CR+5.6 IS: COREG PO Q12 MEGACE PO BID CARDURA PO QHRS HYDRALAZINE PO Q8HRS HEPARIN SQ Q12 NORVASC PO QD REMERON PO QHS : TELEMETRY STATUS PLAN: HEP PANEL TUNNELED CATH START HEMODIALYSIS INTERQUAL CRITERIA MET
--- NOTE | 2018-12-20 14:30 | Pre-Procedure Note/Attestation ---
Pre-Procedure Note/Attestation Complete Prior to Procedure Planned Procedure: not applicable Procedure Narrative: tunneled dialysis catheter Indications for Procedure Pre-Operative Diagnosis: ESRD Attestation I attest that I discussed the nature of the procedure; its benefits; risks and complications; and alternatives (and the risks and benefits of such alternatives ), prior to the procedure, with the patient (or the patient's legal parts counter representative). I attest that, if there was a reasonable possibility of needing a blood transfusion, the patient (or the patient's legal parts counter representative) was given the [facility] standardized written summary, pursuant to the Carlos Justin Blood Safety Act ([place] Health and Safety Code # 1645, as amended). I attest that I re-evaluated the patient just prior to the surgery and that there has been no change in the patient's H&P, except as documented below: Discussed by phone with son Asim Little at 0930. Will need to do in a.m. with anesthesia. Sulaiman Hurtado MD Dec 20, 2018 14:30
--- NOTE | 2018-12-20 14:47 | NUR ---
NURSE NOTES: Patient went to the left side of the bed with bed alarm active and ringing. @1447- Patient went from a standing to a sitting position on the floor. Patient was on the left side of the bed. Patient did not hit her head. Was witness by Sandee SEGUNDO, Bessie SEGUNDO, Tisha GROVER, and charge nurse Catracho. Bed alarm was active, bed was locked, side rails x3 were elevated, yellow socks were on, yellow id band was on. Fall risk on door. Dr. Elaine and nursing administrative staff supervisor Arlen were notified.
--- NOTE | 2018-12-20 15:00 | NUR ---
NURSE NOTES: Radiology wasn't able to do the procedure, because patient was unable to stay still.
--- NOTE | 2018-12-20 15:10 | NUR ---
NURSE NOTES: Patient fell while I was on break. Patient is stable but still trying to get out of bed. Charge nurse received order for restrain and carried out.
--- NOTE | 2018-12-20 15:10 | NUR ---
NURSE NOTES: Notified primary nurse Stephy of event. Received order from Dr. Beltran for bilateral wrist restraints.
[2018-12-20] MEDS: HydrALAZINE 25mg tab ORAL SCH ×2 (15:38→22:29)
--- NOTE | 2018-12-20 17:30 | NUR ---
NURSE NOTES: Patient is agitated and restless, trying to get out of bed, keeps pulling out restrain. I haven't left the room since the incident. Vital sign taken per protocol. Dr. Beltran is aware.
[2018-12-20] MEDS: Megace 400mg/10ml Susp ORAL SCH (18:00)
--- NOTE | 2018-12-20 19:30 | NUR ---
NURSE NOTES: Received patient from [facility], patient in bed, restless, does not respond to questions. Pulling at restraints, sheets, pillows, moving arms and legs, from side to side. Bilateral wrist restraints on, no trauma observed on the wrists, 2 finger depth. On air mattress, bed in low position, locked, bed alarm on, call light within reach. Lfet hand PIV 20 gauge, patent, saline locked, wrapped with kerlix to prevent patient from pulling it out. On room air, no signs of respiratory distress.
--- NOTE | 2018-12-20 19:34 | NUR ---
HAND-OFF: Report given to Raymundo/RN, Patient is asleep, No acute distress/SOB noted. Endorsed plan of care.
[2018-12-20] MEDS: HYDROcodone/Acetamin 5/325 tab ORAL PRN (22:28)
--- NOTE | 2018-12-20 22:30 | NUR ---
NURSE NOTES: Patient still moving around in bed, moaning, yelling, pulling at sheets and restraints. Medicated with Gardners 1 tab PO for possible pain.
--- NOTE | 2018-12-20 22:46 | NUR ---
NURSE NOTES: Received call from Dr. Gibson, no orders, informed him there will be another troponin at 0400 and that patient is refusing meds, bp is 96/54 and lasix was held. Received orders to hold lasix for SBP <100. No other orders. Addendum: 12/20/18 at 2258 by Raymundo Chilel RN wrong patient, please disregard note
--- NOTE | 2018-12-20 23:14 | NUR ---
NURSE NOTES: Patient moving around in bed, unable to determine reason. Medicated with benadryl 50mg po for possible itching, patient has scabies. Addendum: 12/20/18 at 2341 by Raymundo Chilel RN Medicated benadryl at 2130. Patient was moving around, moaning, unable to determine reason. Patient has scabies, medicated with benadryl 50mg po for itching.
--- NOTE | 2018-12-20 23:44 | NUR ---
NURSE NOTES: Patient in bed, asleep, no s/s of pain observed.
--- NOTE | 2018-12-20 23:58 | NUR ---
Patient NPO for dialysis catheter placement tomorrow.
[2018-12-21] VITALS (11 sets, daily range): BP systolic 144–165; BP diastolic 61–86
[2018-12-21] MEDS: HydrALAZINE 25mg tab ORAL SCH ×3 (05:51→21:02)
[2018-12-21] MEDS: Doxazosin 1mg Tab ORAL SCH ×3 (05:52→21:02)
--- NOTE | 2018-12-21 07:30 | NUR ---
HAND-OFF: Report given to Rain SEGUNDO. Plan of care endorsed.
--- NOTE | 2018-12-21 07:36 | NUR ---
NURSE NOTES: Report received from SANYA Fonseca. Pt is lying in semi-fowlers with no signs of distress. Pt is restless, but does not appear to be in pain, no SOB noted. A+Ox1. IV site is patent and intact. Respirations are even and unlabored on room air. Bed is at lowest position, brakes engaged, siderails x2, bed alarm on, and call light within reach. Pt is in bilateral soft wrist restraints for safety. No skin breakdown noted. Will continue to monitor.
--- NOTE | 2018-12-21 08:13 | NUR ---
NURSE NOTES: Radiology called about consent for permacath. Pt needed new consent due to need for anesthesia during procedure. Called daughter Nancy Rodriguez who gave telephone consent. Raymundo Cihlel RN verified consent. Radiology made aware of consent signed.
[2018-12-21] MEDS ORDERED: LORazepam Inj 2mg/ml 1ml IV SCH (08:30)
[2018-12-21 08:35] LABS: HEMATOCRIT 28.2 % (37.0-47.0); HEMOGLOBIN 8.7 G/DL (12.0-16.0); MEAN CORPUSCULAR VOLUME 95 FL (80-99); PLATELET COUNT 483 K/UL (150-450); RED BLOOD COUNT 2.98 M/UL (4.20-5.40); RED CELL DISTRIBUTION WIDTH 17.7 % (11.6-14.8); WHITE BLOOD COUNT 6.9 K/UL (4.8-10.8)
[2018-12-21] MEDS: Heparin 5000 units/ml inj SUBQ SCH ×2 (08:42→21:00)
[2018-12-21] MEDS: Megace 400mg/10ml Susp ORAL SCH ×2 (08:42→17:25)
--- NOTE | 2018-12-21 08:43 | NUR ---
NURSE NOTES: Dr. Beltran ordered IV ativan, however patient is to receive anesthesia. Let Dr. Beltran know and he said to non administer the ativan.
--- NOTE | 2018-12-21 08:44 | NUR ---
NURSE NOTES: Pt is off unit for permacath placement.
[2018-12-21 08:50] LABS: ANION GAP 12 mmol/L (5-15); BLOOD UREA NITROGEN 60 mg/dL (7-18); CARBON DIOXIDE 19 MMOL/L (21-32); CHLORIDE 110 MMOL/L (98-107); CREATININE 5.5 MG/DL (0.55-1.30); POTASSIUM 4.9 MMOL/L (3.5-5.1); SODIUM 141 MMOL/L (136-145)
--- NOTE | 2018-12-21 08:53 | General Progress Note ---
Assessment/Plan Problem List: (1) Diabetes mellitus ICD Codes: E11.9 - Type 2 diabetes mellitus without complications SNOMED: 84124817 (2) Anemia due to acute blood loss ICD Codes: D62 - Acute posthemorrhagic anemia SNOMED: 653871150 (3) Failure to thrive (0-17) ICD Codes: R62.51 - Failure to thrive (0-17) SNOMED: 919724775 (4) Abscess of right hip ICD Codes: L02.415 - Cutaneous abscess of right lower limb SNOMED: 448921 (5) Renal failure (ARF), acute on chronic ICD Codes: N17.9 - Acute kidney failure, unspecified; N18.9 - Chronic kidney disease, unspecified SNOMED: 201616641 (6) ESRD (end stage renal disease) ICD Codes: N18.6 - End stage renal disease SNOMED: 34940356 (7) Anemia in CKD (chronic kidney disease) ICD Codes: N18.9 - Chronic kidney disease, unspecified; D63.1 - Anemia in chronic kidney disease SNOMED: 904978153 (8) Hypertensive kidney disease ICD Codes: I12.9 - Hypertensive chronic kidney disease with stage 1 through stage 4 chronic kidney disease, or unspecified chronic kidney disease SNOMED: 13040047 Status: stable Assessment/Plan: perm cath placement under anesthesia HD per renal anxiolytics psych eval wound care per gen surgery skin care Subjective ROS Limited/Unobtainable: No Constitutional: Reports: malaise, weakness HEENT: Reports: no symptoms Cardiovascular: Reports: no symptoms Respiratory: Reports: no symptoms Gastrointestinal/Abdominal: Reports: no symptoms Genitourinary: Reports: no symptoms Neurologic/Psychiatric: Reports: no symptoms Endocrine: Reports: no symptoms Hematologic/Lymphatic: Reports: no symptoms Allergies: Coded Allergies: No Known Allergies (Unverified , 11/12/18) All Systems: reviewed and negative except above Subjective no events. remains intermittently agitated. Objective Last 24 Hour Vital Signs Date Time Temp Pulse Resp B/P (MAP) Pulse Ox O2 Delivery O2 Flow Rate FiO2 12/21/18 05:51 150/86 12/21/18 04:00 97.2 73 18 150/86 (107) 96 12/21/18 03:27 57 12/21/18 00:00 97.2 61 18 151/62 (91) 98 12/20/18 23:34 61 12/20/18 22:29 164/76 12/20/18 22:27 76 164/76 (105) 12/20/18 21:00 Room Air 12/20/18 20:00 97.4 55 18 118/50 (72) 96 12/20/18 19:45 60 12/20/18 16:50 62 20 143/61 (88) 12/20/18 16:20 61 18 141/66 (91) 12/20/18 16:00 60 12/20/18 15:50 96.6 59 18 143/71 (95) 12/20/18 15:38 168/65 12/20/18 15:35 62 20 121/53 (75) 12/20/18 15:20 59 20 147/69 (95) 12/20/18 15:05 59 20 168/65 (99) 12/20/18 14:50 59 152/61 (91) 12/20/18 14:47 96.9 100 Room Air 12/20/18 13:00 121/50 (73) 12/20/18 12:38 169/63 12/20/18 12:00 97.3 58 20 169/63 (98) 99 12/20/18 12:00 63 12/20/18 12:00 53 12/20/18 09:07 71 162/56 12/20/18 09:06 71 162/56 12/20/18 09:00 Room Air Intake and Output 12/20/18 12/21/18 19:00 07:00 Intake Total 360 ml 60 ml Balance 360 ml 60 ml Intake Oral 360 ml 60 ml # Voids 3 2 Laboratory Tests 12/21/18 08:00: White Blood Count 6.9, Red Blood Count 2.98L, Hemoglobin 8.7L, Hematocrit 28.2L , Mean Corpuscular Volume 95, Mean Corpuscular Hemoglobin 29.4, Mean Corpuscular Hemoglobin Concent 31.0L, Red Cell Distribution Width 17.7H, Platelet Count 483H, Mean Platelet Volume 5.1L, Neutrophils (%) (Auto) , Lymphocytes (%) (Auto) , Monocytes (%) (Auto) , Eosinophils (%) (Auto) , Basophils (%) (Auto) , Neutrophils % (Manual) [Pending], Lymphocytes % (Manual) [Pending], Platelet Estimate [Pending], Platelet Morphology [Pending], Sodium Level [Pending], Potassium Level [Pending], Chloride Level [Pending], Carbon Dioxide Level [Pending], Blood Urea Nitrogen [Pending], Creatinine [Pending], Estimat Glomerular Filtration Rate [Pending], Glucose Level [Pending], Calcium Level [Pending] Height (Feet): 5 Height (Inches): 2.00 Weight (Pounds): 93 General Appearance: WD/WN, alert Neck: supple Cardiovascular: normal peripheral pulses, normal rate, regular rhythm Respiratory/Chest: chest wall non-tender, lungs clear, normal breath sounds Abdomen: normal bowel sounds, non tender, soft, no organomegaly Edema: no edema noted Arm (L), no edema noted Arm (R), no edema noted Leg (L), no edema noted Leg (R), no edema noted Pedal (L), no edema noted Pedal (R), no edema noted Generalized Neurologic: alert, responsive, disoriented Nate Beltran MD Dec 21, 2018 08:53
[2018-12-21] MEDS ORDERED: Lidocaine 1% MPF 10mg/ml 5ml ONE (09:40)
[2018-12-21] MEDS ORDERED: Propofol 200mg/20ml IV ONE (09:40)
[2018-12-21] MEDS ORDERED: NS Irrig 1000ml ONE (09:40)
[2018-12-21] MEDS ORDERED: Lidocaine 2% 20mg/ml/Epi 0.005mg/ml 20ml vial INJ ONE (09:45)
[2018-12-21] MEDS ORDERED: Heparin1,000 units/500ml Premix(Conc:2 units/ml) INJ ONE (09:45)
[2018-12-21] MEDS ORDERED: Heparin Sod 1000 units/ml 10ml INJ SCH (09:45)
--- NOTE | 2018-12-21 10:13 | Brief Operative Note ---
Immediate Post Operative Note Operative Note Pre-op Diagnosis: ESRD Procedure: R IJV permacath Post-op Diagnosis: same as pre-op Surgeon: Ivan HURTADO Anesthesia: MAC Specimen: none Complications: none Condition: stable Fluids: none Implant(s) used?: Yes - 23 cm BioFlo catheter Sulaiman Hurtado MD Dec 21, 2018 10:13
--- NOTE | 2018-12-21 10:30 | NUR ---
RADIOLOGY: RT SIDE TUNNELED DIALYSIS PLACED
--- NOTE | 2018-12-21 10:45 | NUR ---
NURSE NOTES: Pt back on unit. Report received from Le Jones RN. VSS. Pt back on manager monitoring and is stable.
--- NOTE | 2018-12-21 11:09 | NUR ---
NURSE NOTES: Called [facility] for hemodialysis. Dialysis nurse Kareem called back and said she will be here shortly. Received telephone consent for dialysis with SANYA Nieto from daughter Nancy Rodriguez.
--- NOTE | 2018-12-21 11:10 | Surgery Progress Note ---
Surgery Progress Note Subjective Additional Comments no acute events. comfortable. stable. Permacath placed HD per renal wound improving Objective Last 24 Hour Vital Signs Date Time Temp Pulse Resp B/P (MAP) Pulse Ox O2 Delivery O2 Flow Rate FiO2 12/21/18 10:44 97.0 54 19 156/62 100 Room Air 12/21/18 10:40 56 16 155/61 100 Simple Mask 6 12/21/18 10:33 97.0 55 18 162/66 100 Simple Mask 6 12/21/18 09:59 60 18 3.0 12/21/18 09:00 Room Air 12/21/18 08:00 64 12/21/18 08:00 97.8 66 22 155/76 (102) 99 12/21/18 05:51 150/86 12/21/18 04:00 97.2 73 18 150/86 (107) 96 12/21/18 03:27 57 12/21/18 00:00 97.2 61 18 151/62 (91) 98 12/20/18 23:34 61 12/20/18 22:29 164/76 12/20/18 22:27 76 164/76 (105) 12/20/18 21:00 Room Air 12/20/18 20:00 97.4 55 18 118/50 (72) 96 12/20/18 19:45 60 12/20/18 16:50 62 20 143/61 (88) 12/20/18 16:20 61 18 141/66 (91) 12/20/18 16:00 60 12/20/18 15:50 96.6 59 18 143/71 (95) 12/20/18 15:38 168/65 12/20/18 15:35 62 20 121/53 (75) 12/20/18 15:20 59 20 147/69 (95) 12/20/18 15:05 59 20 168/65 (99) 12/20/18 14:50 59 152/61 (91) 12/20/18 14:47 96.9 100 Room Air 12/20/18 13:00 121/50 (73) 12/20/18 12:38 169/63 12/20/18 12:00 97.3 58 20 169/63 (98) 99 12/20/18 12:00 63 12/20/18 12:00 53 I&O Intake and Output 12/20/18 12/21/18 19:00 07:00 Intake Total 360 ml 60 ml Balance 360 ml 60 ml Intake Oral 360 ml 60 ml # Voids 3 2 Dressing: saturated Wound: clean Drains: none Cardiovascular: RSR Respiratory: clear Abdomen: soft, present bowel sounds, non-distended Extremities: edema, no tenderness, no cyanosis, other Laboratory Tests Test 12/21/18 08:00 White Blood Count 6.9 K/UL (4.8-10.8) Red Blood Count 2.98 M/UL (4.20-5.40) L Hemoglobin 8.7 G/DL (12.0-16.0) L Hematocrit 28.2 % (37.0-47.0) L Mean Corpuscular Volume 95 FL (80-99) Mean Corpuscular Hemoglobin 29.4 PG (27.0-31.0) Mean Corpuscular Hemoglobin Concent 31.0 G/DL (32.0-36.0) L Red Cell Distribution Width 17.7 % (11.6-14.8) H Platelet Count 483 K/UL (150-450) H Mean Platelet Volume 5.1 FL (6.5-10.1) L Neutrophils (%) (Auto) % (45.0-75.0) Lymphocytes (%) (Auto) % (20.0-45.0) Monocytes (%) (Auto) % (1.0-10.0) Eosinophils (%) (Auto) % (0.0-3.0) Basophils (%) (Auto) % (0.0-2.0) Differential Total Cells Counted 100 Neutrophils % (Manual) 28 % (45-75) L Lymphocytes % (Manual) 59 % (20-45) H Monocytes % (Manual) 6 % (1-10) Eosinophils % (Manual) 7 % (0-3) H Basophils % (Manual) 0 % (0-2) Band Neutrophils 0 % (0-8) Platelet Estimate Adequate Platelet Morphology Normal Hypochromasia 2+ Anisocytosis 2+ Sodium Level 141 MMOL/L (136-145) Potassium Level 4.9 MMOL/L (3.5-5.1) Chloride Level 110 MMOL/L (98-107) H Carbon Dioxide Level 19 MMOL/L (21-32) L Anion Gap 12 mmol/L (5-15) Blood Urea Nitrogen 60 mg/dL (7-18) H Creatinine 5.5 MG/DL (0.55-1.30) H Estimat Glomerular Filtration Rate mL/min (>60) Glucose Level 127 MG/DL (74-106) H Calcium Level 9.0 MG/DL (8.5-10.1) Plan Problems: (1) Urinary retention (2) Diabetes mellitus (3) Failure to thrive (0-17) Assessment & Plan: Will continue with nutritional optimization while in hospital (4) Anemia due to acute blood loss (5) Abscess of right hip Assessment & Plan: Abscess of right hip s/p I&D and debridement. was very large concerning wound that requiring prolonged care and still continues to require care as wound is open. wound evaluated at bedside and now much improved. a significant portion of wound has closed and healed. open debridement area now much smaller and with granulation tissue. no signs of active infection. no purulent drainage, remainder of wound reapproximating well. will continue with wound management until completely healed. apply hydrogel infused gauze to right hip open wound daily, cover with foam dressing, change daily. wash wound with dressing changes heel protectors turn q2h off load pressure will monitor while in hospital and care for patient and wounds thank you (6) Renal failure (ARF), acute on chronic (7) ESRD (end stage renal disease) (8) Anemia in CKD (chronic kidney disease) (9) Hypertensive kidney disease (10) Malnutrition Assessment & Plan: DAILY ESTIMATED NEEDS: Needs based on Wounds, DM, ESRD + possible HD/ 39kg 35-40 kcals/kg 2989-5636 total kcals (WITHOUT HD: 0.8-1.1) (WITH HD: 1.25-1.8) g protein/kg (WITHOUT HD: 31-43) (WITH HD: 49-70) g total protein 20-25 mL/kg 780-975 total fluid mLs NUTRITION DIAGNOSIS: * Increased kcal and protein needs r/t wound healing, underweight status, HD needs as evidenced by s/p recent I&D R hip abscess with excisional debridement, pt is underweight per guidelines, generalized moderate wasting, currently w/ an order for PermCath for HD initiation. * Swallowing and chewing difficulty R/T dysphagia, edentulous status as evidenced by pt on pureed moist texture diet. CURRENT DIET:Renal, pureed moist PO DIET RECOMMENDATIONS: RENAL DIET (texture per [employer]STR[employer]ATION OFFICER) ADDITIONAL RECOMMENDATIONS: 1) Calibrated bed scale wt for accurate CBW 2) Monitor lytes daily- phos elev 3) WOUND CARE: add Nephrovite x 1, Balta 1pkt BID 4) Monitor for HD initiation- w/ an order for PermCath 5) CHEMICAL INSTRUMENTATION OFFICER evaluation for appropriate texture 6) Monitor BGs closely, need for NISS- h/o DM Camilo James Dec 21, 2018 11:10
--- NOTE | 2018-12-21 11:58 | Nephrology Progress Note ---
Assessment/Plan Problem List: (1) ESRD (end stage renal disease) (2) Diabetes mellitus (3) Failure to thrive (0-17) (4) Anemia in CKD (chronic kidney disease) (5) Hypertensive kidney disease (6) Malnutrition Assessment Renal failure: - Chronic: Due to underlying ?HTN / DM ... - s/p mild Urinary Retention in ANJEL HyperGlycemia / DM / Proteinuria Anemia s/p Right hip abcess UTI . Plan Plan adjust BP meds Renal diet Permacath today, as it had to be done under anesthesia Keep BP and BS in check HEP Panel ordered per orders start Megace HD after insertion of cath Subjective ROS Limited/Unobtainable: No Constitutional: Reports: malaise Objective Objective Last 24 Hour Vital Signs Date Time Temp Pulse Resp B/P (MAP) Pulse Ox O2 Delivery O2 Flow Rate FiO2 12/21/18 10:44 97.0 54 19 156/62 100 Room Air 12/21/18 10:40 56 16 155/61 100 Simple Mask 6 12/21/18 10:33 97.0 55 18 162/66 100 Simple Mask 6 12/21/18 09:59 60 18 3.0 12/21/18 09:00 Room Air 12/21/18 08:00 64 12/21/18 08:00 97.8 66 22 155/76 (102) 99 12/21/18 05:51 150/86 12/21/18 04:00 97.2 73 18 150/86 (107) 96 12/21/18 03:27 57 12/21/18 00:00 97.2 61 18 151/62 (91) 98 12/20/18 23:34 61 12/20/18 22:29 164/76 12/20/18 22:27 76 164/76 (105) 12/20/18 21:00 Room Air 12/20/18 20:00 97.4 55 18 118/50 (72) 96 12/20/18 19:45 60 12/20/18 16:50 62 20 143/61 (88) 12/20/18 16:20 61 18 141/66 (91) 12/20/18 16:00 60 12/20/18 15:50 96.6 59 18 143/71 (95) 12/20/18 15:38 168/65 12/20/18 15:35 62 20 121/53 (75) 12/20/18 15:20 59 20 147/69 (95) 12/20/18 15:05 59 20 168/65 (99) 12/20/18 14:50 59 152/61 (91) 12/20/18 14:47 96.9 100 Room Air 12/20/18 13:00 121/50 (73) 12/20/18 12:38 169/63 12/20/18 12:00 97.3 58 20 169/63 (98) 99 12/20/18 12:00 63 12/20/18 12:00 53 Intake and Output 12/20/18 12/21/18 19:00 07:00 Intake Total 360 ml 60 ml Balance 360 ml 60 ml Intake Oral 360 ml 60 ml # Voids 3 2 Laboratory Tests 12/21/18 08:00: White Blood Count 6.9, Red Blood Count 2.98L, Hemoglobin 8.7L, Hematocrit 28.2L , Mean Corpuscular Volume 95, Mean Corpuscular Hemoglobin 29.4, Mean Corpuscular Hemoglobin Concent 31.0L, Red Cell Distribution Width 17.7H, Platelet Count 483H, Mean Platelet Volume 5.1L, Neutrophils (%) (Auto) , Lymphocytes (%) (Auto) , Monocytes (%) (Auto) , Eosinophils (%) (Auto) , Basophils (%) (Auto) , Differential Total Cells Counted 100, Neutrophils % ( Manual) 28L, Lymphocytes % (Manual) 59H, Monocytes % (Manual) 6, Eosinophils % ( Manual) 7H, Basophils % (Manual) 0, Band Neutrophils 0, Platelet Estimate Adequate, Platelet Morphology Normal, Hypochromasia 2+, Anisocytosis 2+, Sodium Level 141, Potassium Level 4.9, Chloride Level 110H, Carbon Dioxide Level 19L, Anion Gap 12, Blood Urea Nitrogen 60H, Creatinine 5.5H, Estimat Glomerular Filtration Rate , Glucose Level 127H, Calcium Level 9.0 Height (Feet): 5 Height (Inches): 2.00 Weight (Pounds): 93 General Appearance: no apparent distress Objective no change William Blackwood MD Dec 21, 2018 11:58
--- NOTE | 2018-12-21 12:23 | Diagnostic Imaging Report ---
Indications: Needs long-term dialysis access Technique: Total sterile technique, including sterile probe cover and sterile gel, sterile gloves, hand hygiene, hat, mask,, sterile gown, large sterile drape, and preparation with 2% chlorhexidine utilized. Local anesthesia with 1% lidocaine. Under real-time ultrasound guidance, puncture right internal jugular vein using 21-gauge micropuncture needle, passage 0.018 guidewire, exchange for 4 Thai micropuncture introducer. The guidewire was used to measure the appropriate catheter length, and was removed. The sheath was left in place. The subcutaneous tract was then anesthetized with 1% lidocaine. A chest dermatotomy was made . The tunneling device was used to pull a 14.5 Thai 23 cm BioFlo catheter through the subcutaneous tunnel to the neck dermatotomy. A guidewire was passed through the neck introducer into the inferior vena cava, and serial dilators were passed over it, followed by the introduction of a 14.5 Thai AirGuard peel-away sheath. The catheter was then introduced into the sheath, the peel-away sheath was removed. Digital radiograph documents satisfactory catheter tip position in the high right atrium, no kinking at the insertion site. Both catheter ports aspirated and flushed. Catheter was fixed to the skin. Patient tolerated procedure well without immediate complication. Fluoroscopy time: 43 seconds Total dose: [id number] mGym2 Total number of images: 1 Comparison: None. Findings: Completion radiograph documents satisfactory position and course of the catheter, catheter tip at the high right atrium. Impression: Successful placement of right transjugular tunneled dialysis catheter, as described above
--- NOTE | 2018-12-21 13:34 | NUR ---
NURSE NOTES: Pulled out hydralazine to give to patient, scanned it, then realized patient was going to have dialysis. Unscanned medication and non administered it.
--- NOTE | 2018-12-21 13:45 | NUR ---
NURSE NOTES: Pt had 7 beats of v-tach. Dr. Beltran aware, no new orders.
--- NOTE | 2018-12-21 14:32 | NUR ---
DISCHARGE PLANNING PATIENT HAS BEEN REFERRED TO [facility] (FOR OUTPT DIALYSIS) T: [phone] F: [phone] WAITING FOR PATIENT TO CLEAR FINANCIAL'S WAITING FOR HEP PANEL RESULTS
[2018-12-21] MEDS: OLANZapine 2.5mg tab ORAL SCH ×2 (15:07→15:37)
--- NOTE | 2018-12-21 15:57 | NUR ---
NURSE NOTES: HD finished for today. Dialysis nurse, Kareem says no fluid out, only cleaned blood. Pt is in stable condition. VSS.
--- NOTE | 2018-12-21 19:06 | NUR ---
HAND-OFF: Report given to SANYA Fonseca. Pt is in stable condition; plan of care endorsed.
--- NOTE | 2018-12-21 19:10 | NUR ---
NURSE NOTES: Received patient from [facility]. Patient in bed, awake, restless. On room air, no s/s of respiratory distress. Permacath double lumen, placed today, on right upper chest. Dressing dry and intact, no signs of bleeding, will continue to monitor. Patient on bilateral soft wrist restraints, observed pulling and scratching herself, will continue to monitor. Bed locked, in low position, bed alarm on, call light within reach. Addendum: 12/21/18 at 2232 by Raymundo Chilel RN NURSE NOTES: Head of bed >30 degrees.
--- NOTE | 2018-12-21 21:00 | NUR ---
NURSE NOTES: Held heparin, patient had permacath placed today, will continue to monitor for bleeding at the site.
--- NOTE | 2018-12-21 22:01 | NUR ---
NURSE NOTES: Patient scratching herself, administered benadryl 50mg po for itching.
[2018-12-22] VITALS: BP 150/76
[2018-12-22] MEDS: HYDROcodone/Acetamin 5/325 tab ORAL PRN (01:02)
--- NOTE | 2018-12-22 01:08 | NUR ---
NURSE NOTES: Patient still restless, kicking, tossing around in bed, medicated with [place] 5/325 1 tab po for possible pain.
--- NOTE | 2018-12-22 03:15 | Consultation ---
DATE OF CONSULTATION: 12/21/2018 HISTORY OF PRESENT ILLNESS: This is a 78-year-old female with a history of multiple medical problems including urinary retention, diabetic mellitus, abscess of right hip, renal failure on dialysis who has been admitted to the hospital for medical stabilization. The patient is severely agitated, confused, not able to be engaged during the evaluation. The patient is in restraints and is attempting to come out of bed. The patient has memory impairment. PAST PSYCHIATRIC HISTORY: Significant for anxiety disorder, depression. The patient is currently on Seroquel. The patient is still agitated. PAST MEDICAL HISTORY: As above. ALLERGIES: No known drug allergies. SUBSTANCE ABUSE HISTORY: No known history of illicit drug use or alcohol. MENTAL STATUS EXAMINATION: The patient is alert, confused, Slovak speaking. Affect is flat. Thought process is disorganized. Thought content, no suicidal or homicidal ideations. Memory, concentration, and attention severely impaired. Insight and judgment non-existent. ASSESSMENT: Brayton I Dementia with behavior disturbance. Brayton II Deferred. Brayton III Brayton IV Low. Brayton V 10 PLAN: 1. Seroquel will be stopped. 2. We will start the patient on Zyprexa 2.5 mg t.i.d. 3. We will continue the Remeron 15 mg at bedtime. 4. Avoid prescribing benzodiazepine, opiate pain medication, anticholinergic as it may exacerbate her 5. We will continue to follow and readjust the medications. Brianna Hein M.D. DR: Pankaj JOB#: [id number] CC:
[2018-12-22 04:00] VITALS: BP 155/70
[2018-12-22] MEDS: Doxazosin 1mg Tab ORAL SCH ×4 (06:24→21:48)
[2018-12-22] MEDS: HydrALAZINE 25mg tab ORAL SCH ×4 (06:24→21:48)
--- NOTE | 2018-12-22 07:15 | NUR ---
HAND-OFF: Report given to Rain SEGUNDO. Plan of care endorsed.
--- NOTE | 2018-12-22 07:20 | NUR ---
NURSE NOTES: Report received from SANYA Fonseca. Pt is lying in semi-fowlers with no signs of distress. Pt is sleeping; no pain or SOB noted. A+Ox1. IV site is patent and intact. Respirations are even and unlabored on room air. Bed is at lowest position, brakes engaged, siderails x2, bed alarm on, and call light within reach. Pt is in bilateral soft wrist restraints for safety. No skin breakdown noted. Will continue to monitor.
[2018-12-22 08:00] VITALS: BP 178/68
[2018-12-22] MEDS: Megace 400mg/10ml Susp ORAL SCH ×2 (08:14→17:28)
[2018-12-22] MEDS: OLANZapine 2.5mg tab ORAL SCH ×3 (08:15→17:28)
[2018-12-22] MEDS: Heparin 5000 units/ml inj SUBQ SCH ×3 (08:19→21:39)
[2018-12-22] MEDS ORDERED: Lactulose 20gm/30ml UDC ORAL PRN (08:45)
[2018-12-22] MEDS ORDERED: Haloperidol 5mg/ml Inj IM PRN (08:45)
[2018-12-22 08:52] LABS: HEMATOCRIT 26.6 % (37.0-47.0); HEMOGLOBIN 8.5 G/DL (12.0-16.0); MEAN CORPUSCULAR VOLUME 93 FL (80-99); PLATELET COUNT 441 K/UL (150-450); RED BLOOD COUNT 2.84 M/UL (4.20-5.40); RED CELL DISTRIBUTION WIDTH 17.7 % (11.6-14.8); WHITE BLOOD COUNT 8.3 K/UL (4.8-10.8)
[2018-12-22 09:36] LABS: ALANINE AMINOTRANSFERASE 10 U/L (12-78); ALBUMIN 2.6 G/DL (3.4-5.0); ALBUMIN/GLOBULIN RATIO 0.7 (1.0-2.7); ALKALINE PHOSPHATASE 74 U/L (46-116); ANION GAP 9 mmol/L (5-15); ASPARTATE AMINO TRANSFERASE 17 U/L (15-37); BILIRUBIN,TOTAL 0.3 MG/DL (0.2-1.0); BLOOD UREA NITROGEN 39 mg/dL (7-18); CALCIUM 8.6 MG/DL (8.5-10.1); CARBON DIOXIDE 25 MMOL/L (21-32); CHLORIDE 107 MMOL/L (98-107); CREATININE 3.9 MG/DL (0.55-1.30); PHOSPHORUS 3.6 MG/DL (2.5-4.9); POTASSIUM 4.3 MMOL/L (3.5-5.1); SODIUM 141 MMOL/L (136-145)
--- NOTE | 2018-12-22 09:45 | NUR ---
NURSE NOTES: Contacted Dr. Beltran about patient's magnesium 1.7. Waiting for response.
--- NOTE | 2018-12-22 11:33 | NUR ---
RD ASSESSMENT & RECOMMENDATIONS SEE CARE ACTIVITY FOR COMPLETE ASSESSMENT DAILY ESTIMATED NEEDS: Needs based on Wounds, DM, ESRD+ HD/ 39kg 35-40 kcals/kg 0375-2759 total kcals 1.25-1.8 g protein/kg 49-70 g total protein 20-25 mL/kg 780-975 total fluid mLs NUTRITION DIAGNOSIS: * Increased kcal and protein needs r/t wound healing, underweight status, HD needs as evidenced by s/p recent I&D R hip abscess with excisional debridement, pt is underweight per guidelines, generalized moderate wasting, ESRD, now on HD. * Swallowing and chewing difficulty R/T dysphagia, edentulous status as evidenced by pt on pureed moist texture diet. CURRENT DIET:Renal, pureed moist PO DIET RECOMMENDATIONS: RENAL DIET (texture per [employer]) ADDITIONAL RECOMMENDATIONS: 1) Calibrated bed scale wt for accurate CBW 2) Monitor lytes- mag low, replete as needed 3) WOUND CARE: add Nephrovite x 1, Balta 1pkt BID 4) [employer] evaluation for appropriate texture 5) Monitor BGs closely, need for NISS- h/o DM 6) Monitor for continued good PO intake .
[2018-12-22 12:00] VITALS: BP 130/62
--- NOTE | 2018-12-22 13:03 | Surgery Progress Note ---
Surgery Progress Note Subjective Symptoms: improved, tolerating diet, voiding well, passing flatus Objective Last 24 Hour Vital Signs Date Time Temp Pulse Resp B/P (MAP) Pulse Ox O2 Delivery O2 Flow Rate FiO2 12/22/18 12:00 98.4 60 18 130/62 (84) 94 60 12/22/18 09:05 Room Air 12/22/18 08:16 65 178/68 12/22/18 08:15 65 170/68 12/22/18 08:00 97.5 65 18 178/68 (104) 98 12/22/18 08:00 57 12/22/18 06:24 155/70 12/22/18 04:00 98.0 56 20 155/70 (98) 98 12/22/18 03:29 74 12/22/18 00:00 98.0 70 18 150/76 (100) 97 12/21/18 23:40 69 12/21/18 21:02 144/85 12/21/18 21:01 88 144/85 12/21/18 21:00 Room Air 12/21/18 21:00 98.1 88 16 144/85 (104) 99 12/21/18 20:00 97.5 74 20 163/63 (96) 98 12/21/18 19:41 86 12/21/18 16:00 97.2 68 20 145/71 (95) 98 12/21/18 16:00 74 12/21/18 13:29 156/64 I&O Intake and Output 12/21/18 12/22/18 19:00 07:00 Intake Total 225 ml 240 ml Output Total 10 ml Balance 215 ml 240 ml Intake Oral 100 ml 240 ml IV Total 125 ml Output Estimated Blood Loss 10 ml # Voids 2 2 Cardiovascular: RSR Respiratory: clear Abdomen: soft, flat, non-tender, other Extremities: no tenderness, no cyanosis, other Laboratory Tests Test 12/22/18 07:45 White Blood Count 8.3 K/UL (4.8-10.8) Red Blood Count 2.84 M/UL (4.20-5.40) L Hemoglobin 8.5 G/DL (12.0-16.0) L Hematocrit 26.6 % (37.0-47.0) L Mean Corpuscular Volume 93 FL (80-99) Mean Corpuscular Hemoglobin 29.7 PG (27.0-31.0) Mean Corpuscular Hemoglobin Concent 31.8 G/DL (32.0-36.0) L Red Cell Distribution Width 17.7 % (11.6-14.8) H Platelet Count 441 K/UL (150-450) Mean Platelet Volume 4.6 FL (6.5-10.1) L Neutrophils (%) (Auto) % (45.0-75.0) Lymphocytes (%) (Auto) % (20.0-45.0) Monocytes (%) (Auto) % (1.0-10.0) Eosinophils (%) (Auto) % (0.0-3.0) Basophils (%) (Auto) % (0.0-2.0) Differential Total Cells Counted 100 Neutrophils % (Manual) 35 % (45-75) L Lymphocytes % (Manual) 57 % (20-45) H Monocytes % (Manual) 3 % (1-10) Eosinophils % (Manual) 4 % (0-3) H Basophils % (Manual) 1 % (0-2) Band Neutrophils 0 % (0-8) Platelet Estimate Adequate Platelet Morphology Normal Hypochromasia 2+ Anisocytosis 1+ Sodium Level 141 MMOL/L (136-145) Potassium Level 4.3 MMOL/L (3.5-5.1) Chloride Level 107 MMOL/L (98-107) Carbon Dioxide Level 25 MMOL/L (21-32) Anion Gap 9 mmol/L (5-15) Blood Urea Nitrogen 39 mg/dL (7-18) H Creatinine 3.9 MG/DL (0.55-1.30) H Estimat Glomerular Filtration Rate mL/min (>60) Glucose Level 108 MG/DL (74-106) H Calcium Level 8.6 MG/DL (8.5-10.1) Phosphorus Level 3.6 MG/DL (2.5-4.9) Magnesium Level 1.7 MG/DL (1.8-2.4) L Total Bilirubin 0.3 MG/DL (0.2-1.0) Aspartate Amino Transf (AST/SGOT) 17 U/L (15-37) Alanine Aminotransferase (ALT/SGPT) 10 U/L (12-78) L Alkaline Phosphatase 74 U/L (46-116) C-Reactive Protein, Quantitative < 0.4 mg/dL (0.00-0.90) Pro-B-Type Natriuretic Peptide 2380 pg/mL (0-125) H Total Protein 6.2 G/DL (6.4-8.2) L Albumin 2.6 G/DL (3.4-5.0) L Globulin 3.6 g/dL Albumin/Globulin Ratio 0.7 (1.0-2.7) L Plan Problems: (1) Urinary retention (2) Diabetes mellitus (3) Failure to thrive (0-17) Assessment & Plan: Will continue with nutritional optimization while in hospital (4) Anemia due to acute blood loss (5) Abscess of right hip Assessment & Plan: Abscess of right hip s/p I&D and debridement. was very large concerning wound that requiring prolonged care and still continues to require care as wound is open. wound evaluated at bedside and now much improved. a significant portion of wound has closed and healed. open debridement area now much smaller and with granulation tissue. no signs of active infection. no purulent drainage, remainder of wound reapproximating well. will continue with wound management until completely healed. apply hydrogel infused gauze to right hip open wound daily, cover with foam dressing, change daily. wash wound with dressing changes heel protectors turn q2h off load pressure will monitor while in hospital and care for patient and wounds thank you (6) Renal failure (ARF), acute on chronic (7) ESRD (end stage renal disease) Assessment & Plan: improving with HD cont as per nephro (8) Anemia in CKD (chronic kidney disease) (9) Hypertensive kidney disease (10) Malnutrition Assessment & Plan: DAILY ESTIMATED NEEDS: Needs based on Wounds, DM, ESRD + possible HD/ 39kg 35-40 kcals/kg 8486-9908 total kcals (WITHOUT HD: 0.8-1.1) (WITH HD: 1.25-1.8) g protein/kg (WITHOUT HD: 31-43) (WITH HD: 49-70) g total protein 20-25 mL/kg 780-975 total fluid mLs NUTRITION DIAGNOSIS: * Increased kcal and protein needs r/t wound healing, underweight status, HD needs as evidenced by s/p recent I&D R hip abscess with excisional debridement, pt is underweight per guidelines, generalized moderate wasting, currently w/ an order for PermCath for HD initiation. * Swallowing and chewing difficulty R/T dysphagia, edentulous status as evidenced by pt on pureed moist texture diet. CURRENT DIET:Renal, pureed moist PO DIET RECOMMENDATIONS: RENAL DIET (texture per CONTROL ROOM TENDER) ADDITIONAL RECOMMENDATIONS: 1) Calibrated bed scale wt for accurate CBW 2) Monitor lytes daily- phos elev 3) WOUND CARE: add Nephrovite x 1, Balta 1pkt BID 4) Monitor for HD initiation- w/ an order for PermCath 5) CONTROL ROOM TENDER evaluation for appropriate texture 6) Monitor BGs closely, need for NISS- h/o DM Camilo James Dec 22, 2018 13:03
--- NOTE | 2018-12-22 13:52 | NUR ---
CASE MANAGEMENT:REVIEW 12/22/18 SI: ACUTE RENAL FAILURE *NEW TO DIALYSIS 98.4 60 18 130/62 94% ON RA H/H-8.5/26.6 BUN+39 CR+3.9 MAG-1.7 IS: ZYPREXA PO TID COREG PO Q12 MEGACE PO BID CARDURA PO Q8HRS HYDRALAZINE PO Q8HRS HEPARIN SQ Q12 NORVASC PO QD REMERON PO QHS : TELEMETRY STATUS DCP: FROM [facility]
--- NOTE | 2018-12-22 13:57 | NUR ---
DISCHARGE PLANNING PATIENT HAS BEEN REFERRED TO [facility] (FOR OUTPT DIALYSIS) T: [phone] F: [phone] *FAXED [facility] PANEL RESULTS TO [facility] WAITING FOR IRINEO TO CALL BACK WITH CHAIR TIME
--- NOTE | 2018-12-22 14:56 | Nephrology Progress Note ---
Assessment/Plan Problem List: (1) ESRD (end stage renal disease) (2) Diabetes mellitus (3) Failure to thrive (0-17) (4) Anemia in CKD (chronic kidney disease) (5) Hypertensive kidney disease (6) Malnutrition Assessment Renal failure: - Chronic: Due to underlying ?HTN / DM ... - s/p mild Urinary Retention in ANJEL HyperGlycemia / DM / Proteinuria Anemia s/p Right hip abcess UTI . Plan Plan one dose Venofer Start Epogen adjust BP meds Renal diet Permacath 12/21 done , it had to be done under anesthesia Keep BP and BS in check HEP Panel ordered per orders start Megace HD after insertion of cath done 12/21 next 12/23 Subjective ROS Limited/Unobtainable: No Constitutional: Reports: malaise Objective Objective Last 24 Hour Vital Signs Date Time Temp Pulse Resp B/P (MAP) Pulse Ox O2 Delivery O2 Flow Rate FiO2 12/22/18 14:00 69 12/22/18 13:41 130/62 12/22/18 12:00 98.4 60 18 130/62 (84) 94 60 12/22/18 09:05 Room Air 12/22/18 08:16 65 178/68 12/22/18 08:15 65 170/68 12/22/18 08:00 97.5 65 18 178/68 (104) 98 12/22/18 08:00 57 12/22/18 06:24 155/70 12/22/18 04:00 98.0 56 20 155/70 (98) 98 12/22/18 03:29 74 12/22/18 00:00 98.0 70 18 150/76 (100) 97 12/21/18 23:40 69 12/21/18 21:02 144/85 12/21/18 21:01 88 144/85 12/21/18 21:00 Room Air 12/21/18 21:00 98.1 88 16 144/85 (104) 99 12/21/18 20:00 97.5 74 20 163/63 (96) 98 12/21/18 19:41 86 12/21/18 16:00 97.2 68 20 145/71 (95) 98 12/21/18 16:00 74 Intake and Output 12/21/18 12/22/18 19:00 07:00 Intake Total 225 ml 240 ml Output Total 10 ml Balance 215 ml 240 ml Intake Oral 100 ml 240 ml IV Total 125 ml Output Estimated Blood Loss 10 ml # Voids 2 2 Laboratory Tests 12/22/18 07:45: White Blood Count 8.3, Red Blood Count 2.84L, Hemoglobin 8.5L, Hematocrit 26.6L , Mean Corpuscular Volume 93, Mean Corpuscular Hemoglobin 29.7, Mean Corpuscular Hemoglobin Concent 31.8L, Red Cell Distribution Width 17.7H, Platelet Count 441, Mean Platelet Volume 4.6L, Neutrophils (%) (Auto) , Lymphocytes (%) (Auto) , Monocytes (%) (Auto) , Eosinophils (%) (Auto) , Basophils (%) (Auto) , Differential Total Cells Counted 100, Neutrophils % ( Manual) 35L, Lymphocytes % (Manual) 57H, Monocytes % (Manual) 3, Eosinophils % ( Manual) 4H, Basophils % (Manual) 1, Band Neutrophils 0, Platelet Estimate Adequate, Platelet Morphology Normal, Hypochromasia 2+, Anisocytosis 1+, Sodium Level 141, Potassium Level 4.3, Chloride Level 107, Carbon Dioxide Level 25, Anion Gap 9, Blood Urea Nitrogen 39H, Creatinine 3.9H, Estimat Glomerular Filtration Rate , Glucose Level 108H, Calcium Level 8.6, Phosphorus Level 3.6, Magnesium Level 1.7L, Total Bilirubin 0.3, Aspartate Amino Transf (AST/SGOT) 17 , Alanine Aminotransferase (ALT/SGPT) 10L, Alkaline Phosphatase 74, C-Reactive Protein, Quantitative < 0.4, Pro-B-Type Natriuretic Peptide 2380H, Total Protein 6.2L, Albumin 2.6L, Globulin 3.6, Albumin/Globulin Ratio 0.7L Height (Feet): 5 Height (Inches): 2.00 Weight (Pounds): 101 General Appearance: no apparent distress Objective no change William Blackwood MD Dec 22, 2018 14:56
--- NOTE | 2018-12-22 15:25 | NUR ---
NURSE NOTES: Called [facility] dialysis to schedule patient's dialysis on 12/23.
[2018-12-22 16:00] VITALS: BP 133/65
[2018-12-22] MEDS ORDERED: Iron Sucrose 200 MG in NS 110 ML IV SCH (16:00)
--- NOTE | 2018-12-22 18:30 | Progress Note ---
DATE: 12/22/2018 SUBJECTIVE: The patient continues to be easily agitated, calmer than yesterday. Able to rest and has less psychomotor agitation. MENTAL STATUS EXAMINATION: The patient is alert, confused, disoriented. Mood is agitated. Affect is flat. Thought process, there is a paucity of thought content. Thought content, no suicidal or homicidal ideation. ASSESSMENT: Dementia with behavior disturbance. PLAN: We will continue current medication. Brianna Hein M.D. DR: EDWIN JOB#: [id number] CC:
--- NOTE | 2018-12-22 19:10 | NUR ---
NURSE NOTES: Received report from SANYA Rodrigez, patient in bed, stable, no acute distress. No IV site. Not able to make needs known. Bed lowest position, side rails up X3, will continue to monitor and reassess.
--- NOTE | 2018-12-22 19:17 | NUR ---
NURSE NOTES: IV infiltrated at end of venofer administration. Iv removed.
--- NOTE | 2018-12-22 19:18 | NUR ---
HAND-OFF: Report given to SANYA Almanzar. Pt is in stable condition; plan of care endorsed.
[2018-12-22 20:00] VITALS: BP 145/83
[2018-12-22] MEDS: Epoetin Alfa-EPBX(ESRD on dialysis)10,000 unit/ml vial SUBQ SCH (21:43)
[2018-12-23] VITALS (7 sets, daily range): BP systolic 124–165; BP diastolic 46–84
[2018-12-23] MEDS: HydrALAZINE 25mg tab ORAL SCH ×3 (06:21→21:07)
[2018-12-23] MEDS: Doxazosin 1mg Tab ORAL SCH ×3 (06:21→21:02)
--- NOTE | 2018-12-23 07:11 | NUR ---
HAND-OFF: Report given to SANYA Keyes, patient in stable condition.
--- NOTE | 2018-12-23 07:30 | NUR ---
NURSE NOTES: Received report from Mirna/RN, Patient asleep, lying semi-barahona, no acute distress/SOB noted. Checked IV, patent, no infiltration/ bleeding noted. Not able to make needs known. Bed lowest position, and locked, side rails up X3, will continue to monitor and reassess.
[2018-12-23] MEDS: OLANZapine 2.5mg tab ORAL SCH ×3 (09:49→17:34)
[2018-12-23] MEDS: Megace 400mg/10ml Susp ORAL SCH ×2 (09:50→17:34)
[2018-12-23] MEDS: Heparin 5000 units/ml inj SUBQ SCH ×2 (09:51→20:49)
--- NOTE | 2018-12-23 10:25 | Surgery Progress Note ---
Surgery Progress Note Subjective Additional Comments much more awake and alert now labs improving exam stable receiving HD today Objective Last 24 Hour Vital Signs Date Time Temp Pulse Resp B/P (MAP) Pulse Ox O2 Delivery O2 Flow Rate FiO2 12/23/18 09:50 67 165/72 12/23/18 09:49 67 165/72 12/23/18 06:21 152/80 12/23/18 04:00 98.3 79 16 152/80 (104) 95 12/23/18 04:00 70 12/23/18 00:00 74 12/23/18 00:00 98.4 64 16 126/54 (78) 95 12/22/18 21:48 145/83 12/22/18 21:48 74 145/83 12/22/18 21:00 Room Air 12/22/18 20:00 71 12/22/18 20:00 98.1 74 16 145/83 (103) 97 12/22/18 16:00 59 12/22/18 16:00 97.4 61 18 133/65 (87) 92 12/22/18 14:00 69 12/22/18 13:41 130/62 12/22/18 12:00 98.4 60 18 130/62 (84) 94 60 I&O Intake and Output 12/22/18 12/23/18 19:00 07:00 Intake Total 560 ml Balance 560 ml Intake Oral 560 ml # Voids 2 4 # Bowel Movements 1 Dressing: saturated Wound: clean Cardiovascular: RSR Respiratory: clear Abdomen: soft, flat, non-tender, present bowel sounds Extremities: no tenderness, no cyanosis Plan Problems: (1) Urinary retention (2) Diabetes mellitus (3) Failure to thrive (0-17) Assessment & Plan: Will continue with nutritional optimization while in hospital (4) Anemia due to acute blood loss (5) Abscess of right hip Assessment & Plan: Abscess of right hip s/p I&D and debridement. was very large concerning wound that requiring prolonged care and still continues to require care as wound is open. wound evaluated at bedside and now much improved. a significant portion of wound has closed and healed. open debridement area now much smaller and with granulation tissue. no signs of active infection. no purulent drainage, remainder of wound reapproximating well. will continue with wound management until completely healed. apply hydrogel infused gauze to right hip open wound daily, cover with foam dressing, change daily. wash wound with dressing changes heel protectors turn q2h off load pressure will monitor while in hospital and care for patient and wounds thank you (6) Renal failure (ARF), acute on chronic (7) ESRD (end stage renal disease) Assessment & Plan: improving with HD cont as per nephro (8) Anemia in CKD (chronic kidney disease) (9) Hypertensive kidney disease (10) Malnutrition Assessment & Plan: DAILY ESTIMATED NEEDS: Needs based on Wounds, DM, ESRD + possible HD/ 39kg 35-40 kcals/kg 1458-2819 total kcals (WITHOUT HD: 0.8-1.1) (WITH HD: 1.25-1.8) g protein/kg (WITHOUT HD: 31-43) (WITH HD: 49-70) g total protein 20-25 mL/kg 780-975 total fluid mLs NUTRITION DIAGNOSIS: * Increased kcal and protein needs r/t wound healing, underweight status, HD needs as evidenced by s/p recent I&D R hip abscess with excisional debridement, pt is underweight per guidelines, generalized moderate wasting, currently w/ an order for PermCath for HD initiation. * Swallowing and chewing difficulty R/T dysphagia, edentulous status as evidenced by pt on pureed moist texture diet. CURRENT DIET:Renal, pureed moist PO DIET RECOMMENDATIONS: RENAL DIET (texture per BEEF BREAKER) ADDITIONAL RECOMMENDATIONS: 1) Calibrated bed scale wt for accurate CBW 2) Monitor lytes daily- phos elev 3) WOUND CARE: add Nephrovite x 1, Balta 1pkt BID 4) Monitor for HD initiation- w/ an order for PermCath 5) BEEF BREAKER evaluation for appropriate texture 6) Monitor BGs closely, need for NISS- h/o DM Camilo James Dec 23, 2018 10:25
--- NOTE | 2018-12-23 11:00 | NUR ---
DISCHARGE PLANNING CALLED [facility] (T: [phone]) AND SPOKE WITH ANITA SHE SAID SHE WOULD CALL THIS CONTRACT SPECIALIST BACK REGARDING CLEARANCE OF FINANCIAL'S AND CHAIR TIME ONCE CHAIR TIME HAS BEEN CONFIRMED THEN TRANSPORTATION TO AND FROM DIALYSIS CAN BE ARRANGED
--- NOTE | 2018-12-23 16:22 | Nephrology Progress Note ---
Assessment/Plan Problem List: (1) ESRD (end stage renal disease) (2) Diabetes mellitus (3) Failure to thrive (0-17) (4) Anemia in CKD (chronic kidney disease) (5) Hypertensive kidney disease (6) Malnutrition Assessment Renal failure: - Chronic: Due to underlying ?HTN / DM ... - s/p mild Urinary Retention in ANJEL HyperGlycemia / DM / Proteinuria Anemia s/p Right hip abcess UTI . Plan Plan: one dose Venofer Start Epogen adjust BP meds Renal diet Permacath 12/21 done , it had to be done under anesthesia Keep BP and BS in check HEP Panel ordered per orders start Megace HD after insertion of cath done 12/21 next 12/23 med surg Subjective ROS Limited/Unobtainable: No Constitutional: Reports: malaise Objective Objective Last 24 Hour Vital Signs Date Time Temp Pulse Resp B/P (MAP) Pulse Ox O2 Delivery O2 Flow Rate FiO2 12/23/18 13:15 126/58 12/23/18 12:00 98.0 94 23 126/58 (80) 98 12/23/18 09:50 67 165/72 12/23/18 09:49 67 165/72 12/23/18 09:00 Room Air 12/23/18 08:00 97.9 67 20 165/72 (103) 97 12/23/18 08:00 61 12/23/18 06:21 152/80 12/23/18 04:00 98.3 79 16 152/80 (104) 95 12/23/18 04:00 70 12/23/18 00:00 74 12/23/18 00:00 98.4 64 16 126/54 (78) 95 12/22/18 21:48 145/83 12/22/18 21:48 74 145/83 12/22/18 21:00 Room Air 12/22/18 20:00 71 12/22/18 20:00 98.1 74 16 145/83 (103) 97 Intake and Output 12/22/18 12/23/18 19:00 07:00 Intake Total 560 ml Balance 560 ml Intake Oral 560 ml # Voids 2 4 # Bowel Movements 1 Height (Feet): 5 Height (Inches): 2.00 Weight (Pounds): 101 General Appearance: no apparent distress Neck: limited range of motion Cardiovascular: normal rate Respiratory/Chest: decreased breath sounds Abdomen: soft Objective no change William Blackwood MD Dec 23, 2018 16:22
[2018-12-23] MEDS: Renvela 800mg Pkt ORAL SCH (17:34)
--- NOTE | 2018-12-23 19:18 | NUR ---
NURSE NOTES: reprt received from SANYA Keyes, patient in stable condition, no acute distress noted. AOx1, not able to make needs known. IV site R hand G22 intact, no s/sx of infection. Bed lowest position, brakes on, side rails up x3 , call light within reach, will continue to monitor
--- NOTE | 2018-12-23 19:18 | NUR ---
HAND-OFF: Report given to Jenelle/SANYA and shahriar/SANYA, Patient is in stable condition. Endorsed plan of care.
[2018-12-23] MEDS: Dyna-Hex 2% Top Sol 2oz TOPIC SCH (20:05)
[2018-12-24] VITALS: BP 129/62
[2018-12-24 04:00] VITALS: BP 164/72
[2018-12-24] MEDS: Doxazosin 1mg Tab ORAL SCH ×3 (05:47→21:32)
[2018-12-24] MEDS: HydrALAZINE 25mg tab ORAL SCH ×3 (05:48→21:32)
[2018-12-24 06:40] LABS: HEMATOCRIT 27.2 % (37.0-47.0); HEMOGLOBIN 8.7 G/DL (12.0-16.0); MEAN CORPUSCULAR VOLUME 94 FL (80-99); PLATELET COUNT 409 K/UL (150-450); RED CELL DISTRIBUTION WIDTH 17.6 % (11.6-14.8); WHITE BLOOD COUNT 10.4 K/UL (4.8-10.8)
--- NOTE | 2018-12-24 07:05 | NUR ---
HAND-OFF: Report given to SANYA La, patient in stable condition, plan of care endorsed.
[2018-12-24 07:28] LABS: ALANINE AMINOTRANSFERASE 10 U/L (12-78); ALBUMIN 2.6 G/DL (3.4-5.0); ALBUMIN/GLOBULIN RATIO 0.7 (1.0-2.7); ALKALINE PHOSPHATASE 76 U/L (46-116); ANION GAP 7 mmol/L (5-15); ASPARTATE AMINO TRANSFERASE 19 U/L (15-37); BLOOD UREA NITROGEN 28 mg/dL (7-18); CARBON DIOXIDE 28 MMOL/L (21-32); CHLORIDE 103 MMOL/L (98-107); CREATININE 3.3 MG/DL (0.55-1.30); POTASSIUM 4.2 MMOL/L (3.5-5.1); SODIUM 138 MMOL/L (136-145)
[2018-12-24 07:33] LABS: PHOSPHORUS 3.1 MG/DL (2.5-4.9)
[2018-12-24 07:38] LABS: BILIRUBIN,TOTAL 0.3 MG/DL (0.2-1.0)
--- NOTE | 2018-12-24 07:41 | NUR ---
NURSE NOTES: Received report from SANYA Almanzar. Patient in bed resting, no active s/s cardiac, respiratory distress noticed at this time. Patient on room air, on bilateral soft wrist restraints, cap refill <3 sec, able to move fingers. SR with HR 60, AOx1, open eyes spontaneously, alert, confuse. IV on right hand 22G, asymptomatic, patent, intact. Permacath on right upper chest. Endorsed HD received on 12/23. Bed in lowest position, side rails upx2, call light within reach, bed alarm on. Will continue to monitor.
[2018-12-24 08:00] VITALS: BP 140/70
[2018-12-24] MEDS: OLANZapine 2.5mg tab ORAL SCH ×3 (08:35→17:48)
[2018-12-24] MEDS: Megace 400mg/10ml Susp ORAL SCH ×2 (08:35→17:48)
[2018-12-24] MEDS: Renvela 800mg Pkt ORAL SCH ×3 (08:36→17:48)
[2018-12-24] MEDS: Heparin 5000 units/ml inj SUBQ SCH ×2 (08:37→21:38)
--- NOTE | 2018-12-24 09:57 | General Progress Note ---
Assessment/Plan Problem List: (1) Diabetes mellitus ICD Codes: E11.9 - Type 2 diabetes mellitus without complications SNOMED: 21840513 (2) Anemia due to acute blood loss ICD Codes: D62 - Acute posthemorrhagic anemia SNOMED: 559902461 (3) Failure to thrive (0-17) ICD Codes: R62.51 - Failure to thrive (0-17) SNOMED: 046932152 (4) Abscess of right hip ICD Codes: L02.415 - Cutaneous abscess of right lower limb SNOMED: 164789 (5) Renal failure (ARF), acute on chronic ICD Codes: N17.9 - Acute kidney failure, unspecified; N18.9 - Chronic kidney disease, unspecified SNOMED: 783457315 (6) ESRD (end stage renal disease) ICD Codes: N18.6 - End stage renal disease SNOMED: 39437196 (7) Anemia in CKD (chronic kidney disease) ICD Codes: N18.9 - Chronic kidney disease, unspecified; D63.1 - Anemia in chronic kidney disease SNOMED: 722365048 (8) Hypertensive kidney disease ICD Codes: I12.9 - Hypertensive chronic kidney disease with stage 1 through stage 4 chronic kidney disease, or unspecified chronic kidney disease SNOMED: 38220183 Status: stable Assessment/Plan: HD per renal anxiolytics psych eval wound care per gen surgery skin care Subjective ROS Limited/Unobtainable: Yes Constitutional: Reports: malaise, weakness HEENT: Reports: no symptoms Cardiovascular: Reports: no symptoms Respiratory: Reports: no symptoms Gastrointestinal/Abdominal: Reports: no symptoms Genitourinary: Reports: no symptoms Neurologic/Psychiatric: Reports: no symptoms Endocrine: Reports: no symptoms Hematologic/Lymphatic: Reports: no symptoms Allergies: Coded Allergies: No Known Allergies (Unverified , 11/12/18) All Systems: reviewed and negative except above Subjective no events. remains intermittently agitated. Objective Last 24 Hour Vital Signs Date Time Temp Pulse Resp B/P (MAP) Pulse Ox O2 Delivery O2 Flow Rate FiO2 12/24/18 09:00 Room Air 12/24/18 08:35 72 140/70 12/24/18 08:35 72 140/70 12/24/18 08:00 97.3 72 18 140/70 (93) 98 12/24/18 05:48 164/72 12/24/18 04:00 97.7 82 16 164/72 (102) 98 12/24/18 04:00 60 12/24/18 00:00 98.1 67 16 129/62 (84) 98 12/24/18 00:00 75 12/23/18 21:07 134/46 12/23/18 21:00 Room Air 12/23/18 20:47 61 134/46 12/23/18 20:00 60 12/23/18 20:00 98.1 65 18 134/46 (75) 98 12/23/18 17:00 124/55 (78) 12/23/18 16:00 97.9 62 23 145/84 (104) 96 12/23/18 16:00 61 12/23/18 13:15 126/58 12/23/18 12:00 65 12/23/18 12:00 98.0 94 23 126/58 (80) 98 Intake and Output 12/23/18 12/24/18 19:00 07:00 Intake Total 265 ml Output Total 1010 ml Balance -745 ml Intake Oral 240 ml IV Total 25 ml Output Peritoneal Dialysis UF 1000 ml Estimated Blood Loss 10 ml # Voids 5 3 # Bowel Movements 1 2 Laboratory Tests 12/24/18 06:07: White Blood Count 10.4, Red Blood Count 2.90L, Hemoglobin 8.7L, Hematocrit 27.2L , Mean Corpuscular Volume 94, Mean Corpuscular Hemoglobin 29.9, Mean Corpuscular Hemoglobin Concent 31.8L, Red Cell Distribution Width 17.6H, Platelet Count 409, Mean Platelet Volume 5.2L, Neutrophils (%) (Auto) , Lymphocytes (%) (Auto) , Monocytes (%) (Auto) , Eosinophils (%) (Auto) , Basophils (%) (Auto) , Differential Total Cells Counted 100, Neutrophils % ( Manual) 36L, Lymphocytes % (Manual) 58H, Monocytes % (Manual) 6, Eosinophils % ( Manual) 0, Basophils % (Manual) 0, Band Neutrophils 0, Reactive Lymphocytes Occasional, Platelet Estimate Adequate, Platelet Morphology Normal, Hypochromasia 1+, Anisocytosis 1+, Sodium Level 138, Potassium Level 4.2, Chloride Level 103, Carbon Dioxide Level 28, Anion Gap 7, Blood Urea Nitrogen 28H, Creatinine 3.3H, Estimat Glomerular Filtration Rate , Glucose Level 106, Calcium Level 9.0, Phosphorus Level 3.1, Magnesium Level 1.8, Total Bilirubin 0.3, Aspartate Amino Transf (AST/SGOT) 19, Alanine Aminotransferase (ALT/SGPT) 10L, Alkaline Phosphatase 76, Total Protein 6.5, Albumin 2.6L, Globulin 3.9, Albumin/Globulin Ratio 0.7L Height (Feet): 5 Height (Inches): 2.00 Weight (Pounds): 101 Objective General Appearance: WD/WN, alert Neck: supple Cardiovascular: normal peripheral pulses, normal rate, regular rhythm Respiratory/Chest: chest wall non-tender, lungs clear, normal breath sounds Abdomen: normal bowel sounds, non tender, soft, no organomegaly Edema: no edema noted Arm (L), no edema noted Arm (R), no edema noted Leg (L), no edema noted Leg (R), no edema noted Pedal (L), no edema noted Pedal (R), no edema noted Generalized Neurologic: alert, responsive, disoriented Nate Beltran MD Dec 24, 2018 09:57
--- NOTE | 2018-12-24 09:58 | General Progress Note ---
Assessment/Plan Problem List: (1) Diabetes mellitus ICD Codes: E11.9 - Type 2 diabetes mellitus without complications SNOMED: 30943543 (2) Anemia due to acute blood loss ICD Codes: D62 - Acute posthemorrhagic anemia SNOMED: 201411656 (3) Failure to thrive (0-17) ICD Codes: R62.51 - Failure to thrive (0-17) SNOMED: 952710447 (4) Abscess of right hip ICD Codes: L02.415 - Cutaneous abscess of right lower limb SNOMED: 299465 (5) Renal failure (ARF), acute on chronic ICD Codes: N17.9 - Acute kidney failure, unspecified; N18.9 - Chronic kidney disease, unspecified SNOMED: 921925979 (6) ESRD (end stage renal disease) ICD Codes: N18.6 - End stage renal disease SNOMED: 02511507 (7) Anemia in CKD (chronic kidney disease) ICD Codes: N18.9 - Chronic kidney disease, unspecified; D63.1 - Anemia in chronic kidney disease SNOMED: 677713399 (8) Hypertensive kidney disease ICD Codes: I12.9 - Hypertensive chronic kidney disease with stage 1 through stage 4 chronic kidney disease, or unspecified chronic kidney disease SNOMED: 84582171 Status: stable Assessment/Plan: HD per renal anxiolytics psych eval wound care per gen surgery skin care Subjective Date patient seen: Dec 23, 2018 Time patient seen: 08:00 Allergies: Coded Allergies: No Known Allergies (Unverified , 11/12/18) Subjective no events. remains intermittently agitated. s/p perm cath placement. tolerating hd Objective Last 24 Hour Vital Signs Date Time Temp Pulse Resp B/P (MAP) Pulse Ox O2 Delivery O2 Flow Rate FiO2 12/24/18 09:00 Room Air 12/24/18 08:35 72 140/70 12/24/18 08:35 72 140/70 12/24/18 08:00 97.3 72 18 140/70 (93) 98 12/24/18 05:48 164/72 12/24/18 04:00 97.7 82 16 164/72 (102) 98 12/24/18 04:00 60 12/24/18 00:00 98.1 67 16 129/62 (84) 98 12/24/18 00:00 75 12/23/18 21:07 134/46 12/23/18 21:00 Room Air 12/23/18 20:47 61 134/46 12/23/18 20:00 60 12/23/18 20:00 98.1 65 18 134/46 (75) 98 12/23/18 17:00 124/55 (78) 12/23/18 16:00 97.9 62 23 145/84 (104) 96 12/23/18 16:00 61 12/23/18 13:15 126/58 12/23/18 12:00 65 12/23/18 12:00 98.0 94 23 126/58 (80) 98 Intake and Output 12/23/18 12/24/18 19:00 07:00 Intake Total 265 ml Output Total 1010 ml Balance -745 ml Intake Oral 240 ml IV Total 25 ml Output Peritoneal Dialysis UF 1000 ml Estimated Blood Loss 10 ml # Voids 5 3 # Bowel Movements 1 2 Laboratory Tests 12/24/18 06:07: White Blood Count 10.4, Red Blood Count 2.90L, Hemoglobin 8.7L, Hematocrit 27.2L , Mean Corpuscular Volume 94, Mean Corpuscular Hemoglobin 29.9, Mean Corpuscular Hemoglobin Concent 31.8L, Red Cell Distribution Width 17.6H, Platelet Count 409, Mean Platelet Volume 5.2L, Neutrophils (%) (Auto) , Lymphocytes (%) (Auto) , Monocytes (%) (Auto) , Eosinophils (%) (Auto) , Basophils (%) (Auto) , Differential Total Cells Counted 100, Neutrophils % ( Manual) 36L, Lymphocytes % (Manual) 58H, Monocytes % (Manual) 6, Eosinophils % ( Manual) 0, Basophils % (Manual) 0, Band Neutrophils 0, Reactive Lymphocytes Occasional, Platelet Estimate Adequate, Platelet Morphology Normal, Hypochromasia 1+, Anisocytosis 1+, Sodium Level 138, Potassium Level 4.2, Chloride Level 103, Carbon Dioxide Level 28, Anion Gap 7, Blood Urea Nitrogen 28H, Creatinine 3.3H, Estimat Glomerular Filtration Rate , Glucose Level 106, Calcium Level 9.0, Phosphorus Level 3.1, Magnesium Level 1.8, Total Bilirubin 0.3, Aspartate Amino Transf (AST/SGOT) 19, Alanine Aminotransferase (ALT/SGPT) 10L, Alkaline Phosphatase 76, Total Protein 6.5, Albumin 2.6L, Globulin 3.9, Albumin/Globulin Ratio 0.7L Height (Feet): 5 Height (Inches): 2.00 Weight (Pounds): 101 Objective General Appearance: WD/WN, alert Neck: supple Cardiovascular: normal peripheral pulses, normal rate, regular rhythm Respiratory/Chest: chest wall non-tender, lungs clear, normal breath sounds Abdomen: normal bowel sounds, non tender, soft, no organomegaly Edema: no edema noted Arm (L), no edema noted Arm (R), no edema noted Leg (L), no edema noted Leg (R), no edema noted Pedal (L), no edema noted Pedal (R), no edema noted Generalized Neurologic: alert, responsive, disoriented Nate Beltran MD Dec 24, 2018 09:58
--- NOTE | 2018-12-24 09:59 | General Progress Note ---
Assessment/Plan Problem List: (1) Diabetes mellitus ICD Codes: E11.9 - Type 2 diabetes mellitus without complications SNOMED: 25201748 (2) Anemia due to acute blood loss ICD Codes: D62 - Acute posthemorrhagic anemia SNOMED: 660299587 (3) Failure to thrive (0-17) ICD Codes: R62.51 - Failure to thrive (0-17) SNOMED: 180845530 (4) Abscess of right hip ICD Codes: L02.415 - Cutaneous abscess of right lower limb SNOMED: 263286 (5) Renal failure (ARF), acute on chronic ICD Codes: N17.9 - Acute kidney failure, unspecified; N18.9 - Chronic kidney disease, unspecified SNOMED: 516647925 (6) ESRD (end stage renal disease) ICD Codes: N18.6 - End stage renal disease SNOMED: 68317516 (7) Anemia in CKD (chronic kidney disease) ICD Codes: N18.9 - Chronic kidney disease, unspecified; D63.1 - Anemia in chronic kidney disease SNOMED: 552323871 (8) Hypertensive kidney disease ICD Codes: I12.9 - Hypertensive chronic kidney disease with stage 1 through stage 4 chronic kidney disease, or unspecified chronic kidney disease SNOMED: 54606312 Status: stable Assessment/Plan: HD per renal anxiolytics psych eval wound care per gen surgery skin care Subjective Date patient seen: Dec 22, 2018 ROS Limited/Unobtainable: Yes Constitutional: Reports: no symptoms HEENT: Reports: no symptoms Cardiovascular: Reports: no symptoms Respiratory: Reports: no symptoms Gastrointestinal/Abdominal: Reports: no symptoms Genitourinary: Reports: no symptoms Neurologic/Psychiatric: Reports: no symptoms Endocrine: Reports: no symptoms Hematologic/Lymphatic: Reports: no symptoms Allergies: Coded Allergies: No Known Allergies (Unverified , 11/12/18) Subjective no events. remains intermittently agitated. itching as times. Objective Last 24 Hour Vital Signs Date Time Temp Pulse Resp B/P (MAP) Pulse Ox O2 Delivery O2 Flow Rate FiO2 12/24/18 09:00 Room Air 12/24/18 08:35 72 140/70 12/24/18 08:35 72 140/70 12/24/18 08:00 97.3 72 18 140/70 (93) 98 12/24/18 05:48 164/72 12/24/18 04:00 97.7 82 16 164/72 (102) 98 12/24/18 04:00 60 12/24/18 00:00 98.1 67 16 129/62 (84) 98 12/24/18 00:00 75 12/23/18 21:07 134/46 12/23/18 21:00 Room Air 12/23/18 20:47 61 134/46 12/23/18 20:00 60 12/23/18 20:00 98.1 65 18 134/46 (75) 98 12/23/18 17:00 124/55 (78) 12/23/18 16:00 97.9 62 23 145/84 (104) 96 12/23/18 16:00 61 12/23/18 13:15 126/58 12/23/18 12:00 65 12/23/18 12:00 98.0 94 23 126/58 (80) 98 Intake and Output 12/23/18 12/24/18 19:00 07:00 Intake Total 265 ml Output Total 1010 ml Balance -745 ml Intake Oral 240 ml IV Total 25 ml Output Peritoneal Dialysis UF 1000 ml Estimated Blood Loss 10 ml # Voids 5 3 # Bowel Movements 1 2 Laboratory Tests 12/24/18 06:07: White Blood Count 10.4, Red Blood Count 2.90L, Hemoglobin 8.7L, Hematocrit 27.2L , Mean Corpuscular Volume 94, Mean Corpuscular Hemoglobin 29.9, Mean Corpuscular Hemoglobin Concent 31.8L, Red Cell Distribution Width 17.6H, Platelet Count 409, Mean Platelet Volume 5.2L, Neutrophils (%) (Auto) , Lymphocytes (%) (Auto) , Monocytes (%) (Auto) , Eosinophils (%) (Auto) , Basophils (%) (Auto) , Differential Total Cells Counted 100, Neutrophils % ( Manual) 36L, Lymphocytes % (Manual) 58H, Monocytes % (Manual) 6, Eosinophils % ( Manual) 0, Basophils % (Manual) 0, Band Neutrophils 0, Reactive Lymphocytes Occasional, Platelet Estimate Adequate, Platelet Morphology Normal, Hypochromasia 1+, Anisocytosis 1+, Sodium Level 138, Potassium Level 4.2, Chloride Level 103, Carbon Dioxide Level 28, Anion Gap 7, Blood Urea Nitrogen 28H, Creatinine 3.3H, Estimat Glomerular Filtration Rate , Glucose Level 106, Calcium Level 9.0, Phosphorus Level 3.1, Magnesium Level 1.8, Total Bilirubin 0.3, Aspartate Amino Transf (AST/SGOT) 19, Alanine Aminotransferase (ALT/SGPT) 10L, Alkaline Phosphatase 76, Total Protein 6.5, Albumin 2.6L, Globulin 3.9, Albumin/Globulin Ratio 0.7L Height (Feet): 5 Height (Inches): 2.00 Weight (Pounds): 101 Objective General Appearance: WD/WN, alert Neck: supple Cardiovascular: normal peripheral pulses, normal rate, regular rhythm Respiratory/Chest: chest wall non-tender, lungs clear, normal breath sounds Abdomen: normal bowel sounds, non tender, soft, no organomegaly Edema: no edema noted Arm (L), no edema noted Arm (R), no edema noted Leg (L), no edema noted Leg (R), no edema noted Pedal (L), no edema noted Pedal (R), no edema noted Generalized Neurologic: alert, responsive, disoriented Nate Beltran MD Dec 24, 2018 09:59
[2018-12-24 12:00] VITALS: BP 127/69
--- NOTE | 2018-12-24 12:02 | Nephrology Progress Note ---
Assessment/Plan Problem List: (1) ESRD (end stage renal disease) (2) Diabetes mellitus (3) Failure to thrive (0-17) (4) Anemia in CKD (chronic kidney disease) (5) Hypertensive kidney disease (6) Malnutrition Assessment Renal failure: - Chronic: Due to underlying ?HTN / DM ... - s/p mild Urinary Retention in ANJEL HyperGlycemia / DM / Proteinuria Anemia s/p Right hip abcess UTI . Plan Plan: one dose Venofer Start Epogen adjust BP meds Renal diet Permacath 12/21 done , it had to be done under anesthesia Keep BP and BS in check HEP Panel ordered per orders start Megace HD after insertion of cath done 12/21 next 12/23 med surg Subjective ROS Limited/Unobtainable: Yes Objective Objective Last 24 Hour Vital Signs Date Time Temp Pulse Resp B/P (MAP) Pulse Ox O2 Delivery O2 Flow Rate FiO2 12/24/18 09:00 Room Air 12/24/18 08:35 72 140/70 12/24/18 08:35 72 140/70 12/24/18 08:00 97.3 72 18 140/70 (93) 98 12/24/18 08:00 71 12/24/18 05:48 164/72 12/24/18 04:00 97.7 82 16 164/72 (102) 98 12/24/18 04:00 60 12/24/18 00:00 98.1 67 16 129/62 (84) 98 12/24/18 00:00 75 12/23/18 21:07 134/46 12/23/18 21:00 Room Air 12/23/18 20:47 61 134/46 12/23/18 20:00 60 12/23/18 20:00 98.1 65 18 134/46 (75) 98 12/23/18 17:00 124/55 (78) 12/23/18 16:00 97.9 62 23 145/84 (104) 96 12/23/18 16:00 61 12/23/18 13:15 126/58 Intake and Output 12/23/18 12/24/18 19:00 07:00 Intake Total 265 ml Output Total 1010 ml Balance -745 ml Intake Oral 240 ml IV Total 25 ml Output Peritoneal Dialysis UF 1000 ml Estimated Blood Loss 10 ml # Voids 5 3 # Bowel Movements 1 2 Laboratory Tests 12/24/18 06:07: White Blood Count 10.4, Red Blood Count 2.90L, Hemoglobin 8.7L, Hematocrit 27.2L , Mean Corpuscular Volume 94, Mean Corpuscular Hemoglobin 29.9, Mean Corpuscular Hemoglobin Concent 31.8L, Red Cell Distribution Width 17.6H, Platelet Count 409, Mean Platelet Volume 5.2L, Neutrophils (%) (Auto) , Lymphocytes (%) (Auto) , Monocytes (%) (Auto) , Eosinophils (%) (Auto) , Basophils (%) (Auto) , Differential Total Cells Counted 100, Neutrophils % ( Manual) 36L, Lymphocytes % (Manual) 58H, Monocytes % (Manual) 6, Eosinophils % ( Manual) 0, Basophils % (Manual) 0, Band Neutrophils 0, Reactive Lymphocytes Occasional, Platelet Estimate Adequate, Platelet Morphology Normal, Hypochromasia 1+, Anisocytosis 1+, Sodium Level 138, Potassium Level 4.2, Chloride Level 103, Carbon Dioxide Level 28, Anion Gap 7, Blood Urea Nitrogen 28H, Creatinine 3.3H, Estimat Glomerular Filtration Rate , Glucose Level 106, Calcium Level 9.0, Phosphorus Level 3.1, Magnesium Level 1.8, Total Bilirubin 0.3, Aspartate Amino Transf (AST/SGOT) 19, Alanine Aminotransferase (ALT/SGPT) 10L, Alkaline Phosphatase 76, Total Protein 6.5, Albumin 2.6L, Globulin 3.9, Albumin/Globulin Ratio 0.7L Height (Feet): 5 Height (Inches): 2.00 Weight (Pounds): 101 General Appearance: no apparent distress Objective no change William Blackwood MD Dec 24, 2018 12:02
--- NOTE | 2018-12-24 13:34 | Surgery Progress Note ---
Surgery Progress Note Subjective Symptoms: improved, tolerating diet, voiding well, passing flatus, BM Objective Last 24 Hour Vital Signs Date Time Temp Pulse Resp B/P (MAP) Pulse Ox O2 Delivery O2 Flow Rate FiO2 12/24/18 13:29 127/69 12/24/18 12:00 98.7 67 18 127/69 (88) 97 12/24/18 09:00 Room Air 12/24/18 08:35 72 140/70 12/24/18 08:35 72 140/70 12/24/18 08:00 97.3 72 18 140/70 (93) 98 12/24/18 08:00 71 12/24/18 05:48 164/72 12/24/18 04:00 97.7 82 16 164/72 (102) 98 12/24/18 04:00 60 12/24/18 00:00 98.1 67 16 129/62 (84) 98 12/24/18 00:00 75 12/23/18 21:07 134/46 12/23/18 21:00 Room Air 12/23/18 20:47 61 134/46 12/23/18 20:00 60 12/23/18 20:00 98.1 65 18 134/46 (75) 98 12/23/18 17:00 124/55 (78) 12/23/18 16:00 97.9 62 23 145/84 (104) 96 12/23/18 16:00 61 I&O Intake and Output 12/23/18 12/24/18 19:00 07:00 Intake Total 265 ml Output Total 1010 ml Balance -745 ml Intake Oral 240 ml IV Total 25 ml Output Peritoneal Dialysis UF 1000 ml Estimated Blood Loss 10 ml # Voids 5 3 # Bowel Movements 1 2 Dressing: saturated Wound: clean Cardiovascular: RSR Respiratory: clear Abdomen: soft, flat, non-tender, present bowel sounds, non-distended Extremities: no tenderness, no cyanosis Laboratory Tests Test 12/24/18 06:07 White Blood Count 10.4 K/UL (4.8-10.8) Red Blood Count 2.90 M/UL (4.20-5.40) L Hemoglobin 8.7 G/DL (12.0-16.0) L Hematocrit 27.2 % (37.0-47.0) L Mean Corpuscular Volume 94 FL (80-99) Mean Corpuscular Hemoglobin 29.9 PG (27.0-31.0) Mean Corpuscular Hemoglobin Concent 31.8 G/DL (32.0-36.0) L Red Cell Distribution Width 17.6 % (11.6-14.8) H Platelet Count 409 K/UL (150-450) Mean Platelet Volume 5.2 FL (6.5-10.1) L Neutrophils (%) (Auto) % (45.0-75.0) Lymphocytes (%) (Auto) % (20.0-45.0) Monocytes (%) (Auto) % (1.0-10.0) Eosinophils (%) (Auto) % (0.0-3.0) Basophils (%) (Auto) % (0.0-2.0) Differential Total Cells Counted 100 Neutrophils % (Manual) 36 % (45-75) L Lymphocytes % (Manual) 58 % (20-45) H Monocytes % (Manual) 6 % (1-10) Eosinophils % (Manual) 0 % (0-3) Basophils % (Manual) 0 % (0-2) Band Neutrophils 0 % (0-8) Reactive Lymphocytes Occasional Platelet Estimate Adequate Platelet Morphology Normal Hypochromasia 1+ Anisocytosis 1+ Sodium Level 138 MMOL/L (136-145) Potassium Level 4.2 MMOL/L (3.5-5.1) Chloride Level 103 MMOL/L (98-107) Carbon Dioxide Level 28 MMOL/L (21-32) Anion Gap 7 mmol/L (5-15) Blood Urea Nitrogen 28 mg/dL (7-18) H Creatinine 3.3 MG/DL (0.55-1.30) H Estimat Glomerular Filtration Rate mL/min (>60) Glucose Level 106 MG/DL (74-106) Calcium Level 9.0 MG/DL (8.5-10.1) Phosphorus Level 3.1 MG/DL (2.5-4.9) Magnesium Level 1.8 MG/DL (1.8-2.4) Total Bilirubin 0.3 MG/DL (0.2-1.0) Aspartate Amino Transf (AST/SGOT) 19 U/L (15-37) Alanine Aminotransferase (ALT/SGPT) 10 U/L (12-78) L Alkaline Phosphatase 76 U/L (46-116) Total Protein 6.5 G/DL (6.4-8.2) Albumin 2.6 G/DL (3.4-5.0) L Globulin 3.9 g/dL Albumin/Globulin Ratio 0.7 (1.0-2.7) L Plan Problems: (1) Urinary retention (2) Diabetes mellitus (3) Failure to thrive (0-17) Assessment & Plan: Will continue with nutritional optimization while in hospital (4) Anemia due to acute blood loss (5) Abscess of right hip Assessment & Plan: Abscess of right hip s/p I&D and debridement. was very large concerning wound that requiring prolonged care and still continues to require care as wound is open. wound evaluated at bedside and now much improved. a significant portion of wound has closed and healed. open debridement area now much smaller and with granulation tissue. no signs of active infection. no purulent drainage, remainder of wound reapproximating well. will continue with wound management until completely healed. apply hydrogel infused gauze to right hip open wound daily, cover with foam dressing, change daily. wash wound with dressing changes heel protectors turn q2h off load pressure will monitor while in hospital and care for patient and wounds thank you (6) Renal failure (ARF), acute on chronic (7) ESRD (end stage renal disease) Assessment & Plan: improving with HD cont as per nephro (8) Anemia in CKD (chronic kidney disease) (9) Hypertensive kidney disease (10) Malnutrition Assessment & Plan: DAILY ESTIMATED NEEDS: Needs based on Wounds, DM, ESRD + possible HD/ 39kg 35-40 kcals/kg 3041-3570 total kcals (WITHOUT HD: 0.8-1.1) (WITH HD: 1.25-1.8) g protein/kg (WITHOUT HD: 31-43) (WITH HD: 49-70) g total protein 20-25 mL/kg 780-975 total fluid mLs NUTRITION DIAGNOSIS: * Increased kcal and protein needs r/t wound healing, underweight status, HD needs as evidenced by s/p recent I&D R hip abscess with excisional debridement, pt is underweight per guidelines, generalized moderate wasting, currently w/ an order for PermCath for HD initiation. * Swallowing and chewing difficulty R/T dysphagia, edentulous status as evidenced by pt on pureed moist texture diet. CURRENT DIET:Renal, pureed moist PO DIET RECOMMENDATIONS: RENAL DIET (texture per PROVIDER ENGAGEMENT EXECUTIVE) ADDITIONAL RECOMMENDATIONS: 1) Calibrated bed scale wt for accurate CBW 2) Monitor lytes daily- phos elev 3) WOUND CARE: add Nephrovite x 1, Balta 1pkt BID 4) Monitor for HD initiation- w/ an order for PermCath 5) PROVIDER ENGAGEMENT EXECUTIVE evaluation for appropriate texture 6) Monitor BGs closely, need for NISS- h/o DM Camilo James Dec 24, 2018 13:34
--- NOTE | 2018-12-24 15:33 | NUR ---
CASE MANAGEMENT:REVIEW 12/24/18 SI: ACUTE RENAL FAILURE *NEW TO DIALYSIS 98.7 67 18 127/69 97% ON RA H/H-8.7/27.2 BUN+28 CR+3.3 IS: ZYPREXA PO TID COREG PO Q12 MEGACE PO BID CARDURA PO Q8HRS HYDRALAZINE PO Q8HRS HEPARIN SQ Q12 NORVASC PO QD REMERON PO QHS : TELEMETRY STATUS DCP: FROM [facility] PLAN: HAS BEEN REFERRED TO [facility] FOR OUTPATIENT DIALYSIS
--- NOTE | 2018-12-24 15:36 | NUR ---
DISCHARGE PLANNING PATIENT WILL RETURN TO [facility] UPON DISCHARGE *WE ARE STILL WAITING FOR [facility] TO PROVIDE CHAIR TIME [facility]ED [facility] (T: [phone]) AND SPOKE WITH ANITA FINANCIAL CLEARANCE IS STILL PENDING WE CANNOT DISCHARGE UNTIL OUTPATIENT DIALYSIS HAS BEEN ARRANGED
[2018-12-24 16:00] VITALS: BP 132/64
--- NOTE | 2018-12-24 16:15 | Cardiology Report ---
APPROVED REPORT EKG Measurement Heart [id number] Sinus rhythm with premature atrial complexes Lateral infarct, age undetermined Abnormal ECG
--- NOTE | 2018-12-24 19:29 | NUR ---
HAND-OFF: Report given to SANYA Kirkland.
--- NOTE | 2018-12-24 19:30 | NUR ---
NURSE NOTES: Pt received from SANYA La alert and oriented x1 to name only with garbled speech. No acute s/s of distress noted at this time. IV site asymptomatic and patent on R hand 22g, saline lock. On soft bilateral wrist restraints d/t impulsiveness. Neurovascular status intact - hands warm to touch, no s/s of swelling noted, bilateral radial pulses equal. Dressing on R hip and sacral dry and intact. Pt on low air loss mattress. Bed in lowest position, call light and belongings within reach.
[2018-12-24 20:00] VITALS: BP 135/71
[2018-12-24] MEDS: Dyna-Hex 2% Top Sol 2oz TOPIC SCH (20:00)
[2018-12-24] MEDS: Epoetin Alfa-EPBX(ESRD on dialysis)10,000 unit/ml vial SUBQ SCH (21:33)
[2018-12-25] VITALS: BP_SYST 139; BP_SYST 144; BP_DIAS 63; BP_DIAS 72
[2018-12-25 04:00] VITALS: BP 143/68
[2018-12-25] MEDS: HydrALAZINE 25mg tab ORAL SCH ×3 (06:14→21:24)
[2018-12-25] MEDS: Doxazosin 1mg Tab ORAL SCH ×3 (06:14→21:22)
--- NOTE | 2018-12-25 07:15 | NUR ---
HAND-OFF: Report given to SANYA Isaac. No acute s/s of distress noted.
--- NOTE | 2018-12-25 07:20 | NUR ---
NURSE NOTES: Pt received from SANYA Winslow. Pt AOx1, to name only with garbled speech. No acute s/s of distress noted. In RA. IV site asymptomatic and patent on R hand 22g, SL. On soft bilateral wrist restraints for safety. Neurovascular status intact with hands warm to touch, no signs of swelling noted, bilateral radial pulses equal. Dressing on R hip and sacral dry and intact. Pt on low air loss mattress. Pt. self turns frequently. Bed in lowest position, side rails upx2, brakes engaged, alarm on. call light and belongings within reach.
[2018-12-25 08:00] VITALS: BP 149/69
--- NOTE | 2018-12-25 08:19 | General Progress Note ---
Assessment/Plan Problem List: (1) Diabetes mellitus ICD Codes: E11.9 - Type 2 diabetes mellitus without complications SNOMED: 62016937 (2) Anemia due to acute blood loss ICD Codes: D62 - Acute posthemorrhagic anemia SNOMED: 431579284 (3) Failure to thrive (0-17) ICD Codes: R62.51 - Failure to thrive (0-17) SNOMED: 442712164 (4) Abscess of right hip ICD Codes: L02.415 - Cutaneous abscess of right lower limb SNOMED: 709174 (5) Renal failure (ARF), acute on chronic ICD Codes: N17.9 - Acute kidney failure, unspecified; N18.9 - Chronic kidney disease, unspecified SNOMED: 816674726 (6) ESRD (end stage renal disease) ICD Codes: N18.6 - End stage renal disease SNOMED: 79173201 (7) Anemia in CKD (chronic kidney disease) ICD Codes: N18.9 - Chronic kidney disease, unspecified; D63.1 - Anemia in chronic kidney disease SNOMED: 766692797 (8) Hypertensive kidney disease ICD Codes: I12.9 - Hypertensive chronic kidney disease with stage 1 through stage 4 chronic kidney disease, or unspecified chronic kidney disease SNOMED: 09404061 Status: stable Assessment/Plan: HD per renal anxiolytics psych eval wound care per gen surgery skin care dc planning Subjective ROS Limited/Unobtainable: No Constitutional: Reports: malaise, weakness HEENT: Reports: no symptoms Cardiovascular: Reports: no symptoms Respiratory: Reports: no symptoms Gastrointestinal/Abdominal: Reports: no symptoms Genitourinary: Reports: no symptoms Neurologic/Psychiatric: Reports: no symptoms Endocrine: Reports: no symptoms Hematologic/Lymphatic: Reports: no symptoms Allergies: Coded Allergies: No Known Allergies (Unverified , 11/12/18) All Systems: reviewed and negative except above Subjective no events. remains intermittently agitated. itching as times. Objective Last 24 Hour Vital Signs Date Time Temp Pulse Resp B/P (MAP) Pulse Ox O2 Delivery O2 Flow Rate FiO2 12/25/18 06:14 143/68 12/25/18 04:00 81 12/25/18 04:00 98.3 85 18 143/68 (93) 97 12/25/18 00:00 87 7/13/19 00:00 97.4 92 18 139/72 (94) 96 12/24/18 21:33 74 135/71 12/24/18 21:32 135/71 12/24/18 21:00 Room Air 12/24/18 20:00 98 12/24/18 20:00 98.0 74 18 135/71 (92) 96 12/24/18 16:00 81 12/24/18 16:00 97.7 77 18 132/64 (86) 97 12/24/18 13:29 127/69 12/24/18 12:00 98.7 67 18 127/69 (88) 97 12/24/18 12:00 68 12/24/18 09:00 Room Air 12/24/18 08:35 72 140/70 12/24/18 08:35 72 140/70 Intake and Output 12/24/18 12/25/18 18:59 06:59 Intake Total 360 ml Balance 360 ml Intake Oral 360 ml # Voids 2 2 Height (Feet): 5 Height (Inches): 2.00 Weight (Pounds): 101 Objective General Appearance: WD/WN, alert Neck: supple Cardiovascular: normal peripheral pulses, normal rate, regular rhythm Respiratory/Chest: chest wall non-tender, lungs clear, normal breath sounds Abdomen: normal bowel sounds, non tender, soft, no organomegaly Edema: no edema noted Arm (L), no edema noted Arm (R), no edema noted Leg (L), no edema noted Leg (R), no edema noted Pedal (L), no edema noted Pedal (R), no edema noted Generalized Neurologic: alert, responsive, disoriented Nate Beltran MD Dec 25, 2018 08:19
--- NOTE | 2018-12-25 09:00 | NUR ---
NURSE NOTES: Soft restraints removed. L hand slight edematous noted. left hand free.
[2018-12-25] MEDS: Megace 400mg/10ml Susp ORAL SCH ×2 (09:37→17:10)
[2018-12-25] MEDS: OLANZapine 2.5mg tab ORAL SCH ×3 (09:37→17:10)
[2018-12-25] MEDS: Renvela 800mg Pkt ORAL SCH ×3 (09:38→17:10)
[2018-12-25] MEDS: Heparin 5000 units/ml inj SUBQ SCH ×2 (09:39→21:25)
--- NOTE | 2018-12-25 10:28 | Nephrology Progress Note ---
Assessment/Plan Problem List: (1) ESRD (end stage renal disease) (2) Diabetes mellitus (3) Failure to thrive (0-17) (4) Anemia in CKD (chronic kidney disease) (5) Hypertensive kidney disease (6) Malnutrition Assessment Renal failure: - Chronic: Due to underlying ?HTN / DM ... - s/p mild Urinary Retention in ANJEL HyperGlycemia / DM / Proteinuria Anemia s/p Right hip abcess UTI . Plan Plan: no labs today one dose Venofer Start Epogen adjust BP meds Renal diet Permacath 12/21 done , it had to be done under anesthesia Keep BP and BS in check HEP Panel ordered per orders start Megace HD after insertion of cath done 12/21 next done 12/23 med surg Subjective ROS Limited/Unobtainable: No Constitutional: Reports: malaise Objective Objective Last 24 Hour Vital Signs Date Time Temp Pulse Resp B/P (MAP) Pulse Ox O2 Delivery O2 Flow Rate FiO2 12/25/18 09:37 94 149/69 12/25/18 09:37 94 149/69 12/25/18 08:00 98.7 94 18 149/69 (95) 98 12/25/18 08:00 93 12/25/18 06:14 143/68 12/25/18 04:00 81 12/25/18 04:00 98.3 85 18 143/68 (93) 97 12/25/18 00:00 87 12/25/18 00:00 97.4 92 18 139/72 (94) 96 12/24/18 21:33 74 135/71 12/24/18 21:32 135/71 12/24/18 21:00 Room Air 12/24/18 20:00 98 12/24/18 20:00 98.0 74 18 135/71 (92) 96 12/24/18 16:00 81 12/24/18 16:00 97.7 77 18 132/64 (86) 97 12/24/18 13:29 127/69 12/24/18 12:00 98.7 67 18 127/69 (88) 97 12/24/18 12:00 68 Intake and Output 12/24/18 12/25/18 18:59 06:59 Intake Total 360 ml Balance 360 ml Intake Oral 360 ml # Voids 2 2 Height (Feet): 5 Height (Inches): 2.00 Weight (Pounds): 101 General Appearance: no apparent distress Objective no change William Blackwood MD Dec 25, 2018 10:28
--- NOTE | 2018-12-25 11:26 | Surgery Progress Note ---
Surgery Progress Note Subjective Symptoms: improved Objective Last 24 Hour Vital Signs Date Time Temp Pulse Resp B/P (MAP) Pulse Ox O2 Delivery O2 Flow Rate FiO2 12/25/18 09:37 94 149/69 12/25/18 09:37 94 149/69 12/25/18 08:00 98.7 94 18 149/69 (95) 98 12/25/18 08:00 93 12/25/18 06:14 143/68 12/25/18 04:00 81 12/25/18 04:00 98.3 85 18 143/68 (93) 97 12/25/18 00:00 87 12/25/18 00:00 97.4 92 18 139/72 (94) 96 12/24/18 21:33 74 135/71 12/24/18 21:32 135/71 12/24/18 21:00 Room Air 12/24/18 20:00 98 12/24/18 20:00 98.0 74 18 135/71 (92) 96 12/24/18 16:00 81 12/24/18 16:00 97.7 77 18 132/64 (86) 97 12/24/18 13:29 127/69 12/24/18 12:00 98.7 67 18 127/69 (88) 97 12/24/18 12:00 68 I&O Intake and Output 12/24/18 12/25/18 18:59 06:59 Intake Total 360 ml Balance 360 ml Intake Oral 360 ml # Voids 2 2 Dressing: saturated Wound: clean Cardiovascular: RSR Respiratory: clear Abdomen: soft, non-tender, present bowel sounds, non-distended Extremities: no tenderness, no cyanosis Plan Problems: (1) Urinary retention (2) Diabetes mellitus (3) Failure to thrive (0-17) Assessment & Plan: Will continue with nutritional optimization while in hospital (4) Anemia due to acute blood loss (5) Abscess of right hip Assessment & Plan: Abscess of right hip s/p I&D and debridement. was very large concerning wound that requiring prolonged care and still continues to require care as wound is open. wound evaluated at bedside and now much improved. a significant portion of wound has closed and healed. open debridement area now much smaller and with granulation tissue. no signs of active infection. no purulent drainage, remainder of wound reapproximating well. will continue with wound management until completely healed. apply hydrogel infused gauze to right hip open wound daily, cover with foam dressing, change daily. wash wound with dressing changes heel protectors turn q2h off load pressure will monitor while in hospital and care for patient and wounds thank you (6) Renal failure (ARF), acute on chronic (7) ESRD (end stage renal disease) Assessment & Plan: improving with HD cont as per nephro (8) Anemia in CKD (chronic kidney disease) (9) Hypertensive kidney disease (10) Malnutrition Assessment & Plan: DAILY ESTIMATED NEEDS: Needs based on Wounds, DM, ESRD + possible HD/ 39kg 35-40 kcals/kg 1877-6529 total kcals (WITHOUT HD: 0.8-1.1) (WITH HD: 1.25-1.8) g protein/kg (WITHOUT HD: 31-43) (WITH HD: 49-70) g total protein 20-25 mL/kg 780-975 total fluid mLs NUTRITION DIAGNOSIS: * Increased kcal and protein needs r/t wound healing, underweight status, HD needs as evidenced by s/p recent I&D R hip abscess with excisional debridement, pt is underweight per guidelines, generalized moderate wasting, currently w/ an order for PermCath for HD initiation. * Swallowing and chewing difficulty R/T dysphagia, edentulous status as evidenced by pt on pureed moist texture diet. CURRENT DIET:Renal, pureed moist PO DIET RECOMMENDATIONS: RENAL DIET (texture per MANAGEMENT LEAD) ADDITIONAL RECOMMENDATIONS: 1) Calibrated bed scale wt for accurate CBW 2) Monitor lytes daily- phos elev 3) WOUND CARE: add Nephrovite x 1, Balta 1pkt BID 4) Monitor for HD initiation- w/ an order for PermCath 5) MANAGEMENT LEAD evaluation for appropriate texture 6) Monitor BGs closely, need for NISS- h/o DM Camilo James Dec 25, 2018 11:26
[2018-12-25 12:00] VITALS: BP 152/63
--- NOTE | 2018-12-25 12:16 | NUR ---
CASE MANAGEMENT:REVIEW 12/25/18 SI: ACUTE RENAL FAILURE *NEW TO DIALYSIS T 98.7 HR 94 RR 18 B/P 149/69 SATS 98% ON RA NO LABS TODAY IS: ZYPREXA PO TID COREG PO Q12 MEGACE PO BID CARDURA PO Q8HRS HYDRALAZINE PO Q8HRS HEPARIN SQ Q12 NORVASC PO QD REMERON PO QHS : TELEMETRY STATUS DCP: FROM FLORENTIN SANCHEZ
--- NOTE | 2018-12-25 12:49 | NUR ---
NURSE NOTES: Received patient A/A/Ox1, Turkish speaking. On bilateral soft wrists restraints inplaced. wound care photo taken and uploaded. permacath access is patent and intact. awaiting for HD order for today per Pamela Velasquez report. personal belongings reviewed. kept hob elevated. siderails are up x3 for safety and keep bed in the lowest position. bed alarm is on. will cont to monitor. Addendum: 12/25/18 at 1254 by JOSE ALBERTO QUINN LVN wound drsg changed on right hip. cleanse with NS, applied hydrogel and covered with optifoam.
--- NOTE | 2018-12-25 12:50 | NUR ---
NURSE NOTES: VS stable. Per Dr. Grossman order Pt transferred via hospital bed safely to 410. Oriented to room. wound pictures taken. Belongings checked with MCKAY Crouch. Report given to PATENT LAWYER.
[2018-12-25] MEDS ORDERED: Haloperidol 5mg/ml Inj IM PRN (13:30)
[2018-12-25] MEDS ORDERED: HydrALAZINE 25mg tab ORAL PRN (13:30)
[2018-12-25] MEDS ORDERED: Lactulose 20gm/30ml UDC ORAL PRN (13:30)
[2018-12-25] MEDS ORDERED: Loperamide 2mg cap ORAL PRN (13:30)
[2018-12-25] MEDS ORDERED: HYDROcodone/Acetamin 5/325 tab ORAL PRN (14:30)
[2018-12-25 16:00] VITALS: BP 145/73
[2018-12-25 16:33] LABS: ANION GAP 10 mmol/L (5-15); BLOOD UREA NITROGEN 44 mg/dL (7-18); CALCIUM 9.3 MG/DL (8.5-10.1); CARBON DIOXIDE 26 MMOL/L (21-32); CHLORIDE 102 MMOL/L (98-107); CREATININE 4.7 MG/DL (0.55-1.30); POTASSIUM 4.4 MMOL/L (3.5-5.1); SODIUM 138 MMOL/L (136-145)
[2018-12-25 16:36] LABS: HEMATOCRIT 28.1 % (37.0-47.0); HEMOGLOBIN 9.1 G/DL (12.0-16.0); MEAN CORPUSCULAR VOLUME 92 FL (80-99); PLATELET COUNT 398 K/UL (150-450); RED BLOOD COUNT 3.05 M/UL (4.20-5.40); WHITE BLOOD COUNT 20.9 K/UL (4.8-10.8)
--- NOTE | 2018-12-25 16:36 | NUR ---
NURSE NOTES: APPLIED COOLING MEASURE FOR TEMP 100.9. COLLECTED URINE SAMPLE FOR U/A AND C/S AND SENT TO LAB. WILL CONT TO MONITOR.
[2018-12-25 16:40] LABS: ALANINE AMINOTRANSFERASE 12 U/L (12-78); ASPARTATE AMINO TRANSFERASE 13 U/L (15-37); BILIRUBIN,TOTAL 0.3 MG/DL (0.2-1.0)
[2018-12-25 16:41] LABS: ALBUMIN 2.8 G/DL (3.4-5.0); ALKALINE PHOSPHATASE 108 U/L (46-116)
[2018-12-25 16:44] LABS: APPEARANCE,URINE CLEAR; BILIRUBIN, URINE NEGATIVE (NEGATIVE); COLOR,URINE PALE YELLOW; GLUCOSE, URINE (UA) 4+ (NEGATIVE); KETONES,URINE NEGATIVE (NEGATIVE); LEUKOCYTE ESTERASE ,URINE 2+ (NEGATIVE); NITRITE,URINE NEGATIVE (NEGATIVE); PH,URINE 8 (4.5-8.0); PROTEIN,URINE 4+ (NEGATIVE); UROBILINOGEN,URINE NORMAL MG/DL (0.0-1.0)
--- NOTE | 2018-12-25 17:18 | NUR ---
NURSE NOTES: informed Dr Beltran of the result of WBC and awaiting for a callback. tylenol given for fever 100.9. kept hob elevated. for aspiration precaution. Addendum: 12/25/18 at 1848 by JOSE ALBERTO QUINN LVN rechecked temp 98.8
--- NOTE | 2018-12-25 19:19 | NUR ---
HAND-OFF: Report given to Viri.
--- NOTE | 2018-12-25 19:48 | NUR ---
NURSE NOTES: Received patient sleeping in bed. On room air. Bilateral soft wrists restraints are intact. Temp. 99.4F Permacath on R subclavian vein patent and intact. IV R FA intact. Bed locked, alarm on, lowest position, side rails up, call light within reach. Will continue to monitor.
[2018-12-25 20:00] VITALS: BP 126/51
--- NOTE | 2018-12-25 20:31 | NUR ---
NURSE NOTES: Called Dr. Beltran to change formation of med from Protonix to Prevacid which is substitute crushable med due to aspiration. Received order from Dr. Beltran.
[2018-12-25] MEDS: Dyna-Hex 2% Top Sol 2oz TOPIC SCH (21:24)
[2018-12-26] VITALS: BP 127/57
[2018-12-26 04:00] VITALS: BP 168/71
[2018-12-26] MEDS: Doxazosin 1mg Tab ORAL SCH ×3 (05:33→21:10)
[2018-12-26] MEDS: HydrALAZINE 25mg tab ORAL SCH ×3 (05:34→21:13)
--- NOTE | 2018-12-26 05:54 | NUR ---
NURSE NOTES: Called Dr. Beltran to inform that blood culture result gram positive cocci 1 out of 2 bottles. Addendum: 12/26/18 at 0603 by LIZZY DANG RN RN Received result from [facility]
--- NOTE | 2018-12-26 06:57 | General Progress Note ---
Assessment/Plan Problem List: (1) Diabetes mellitus ICD Codes: E11.9 - Type 2 diabetes mellitus without complications SNOMED: 59284234 (2) Anemia due to acute blood loss ICD Codes: D62 - Acute posthemorrhagic anemia SNOMED: 995552293 (3) Failure to thrive (0-17) ICD Codes: R62.51 - Failure to thrive (0-17) SNOMED: 106598027 (4) Abscess of right hip ICD Codes: L02.415 - Cutaneous abscess of right lower limb SNOMED: 137612 (5) Renal failure (ARF), acute on chronic ICD Codes: N17.9 - Acute kidney failure, unspecified; N18.9 - Chronic kidney disease, unspecified SNOMED: 283363617 (6) ESRD (end stage renal disease) ICD Codes: N18.6 - End stage renal disease SNOMED: 91565398 (7) Anemia in CKD (chronic kidney disease) ICD Codes: N18.9 - Chronic kidney disease, unspecified; D63.1 - Anemia in chronic kidney disease SNOMED: 772867761 (8) Hypertensive kidney disease ICD Codes: I12.9 - Hypertensive chronic kidney disease with stage 1 through stage 4 chronic kidney disease, or unspecified chronic kidney disease SNOMED: 52146651 Status: stable Assessment/Plan: HD per renal anxiolytics wound care per gen surgery skin care follow up cultures iv abx id eval pending dc planning on hold Subjective ROS Limited/Unobtainable: Yes Constitutional: Reports: malaise, weakness HEENT: Reports: no symptoms Cardiovascular: Reports: no symptoms Respiratory: Reports: no symptoms Gastrointestinal/Abdominal: Reports: no symptoms Genitourinary: Reports: no symptoms Neurologic/Psychiatric: Reports: no symptoms Endocrine: Reports: no symptoms Hematologic/Lymphatic: Reports: no symptoms Allergies: Coded Allergies: No Known Allergies (Unverified , 11/12/18) All Systems: reviewed and negative except above Subjective +fever yesterday. + blood cultures this am. vanco started. ID called Objective Last 24 Hour Vital Signs Date Time Temp Pulse Resp B/P (MAP) Pulse Ox O2 Delivery O2 Flow Rate FiO2 12/26/18 05:34 168/71 12/26/18 04:00 99.7 81 19 168/71 (103) 95 12/26/18 00:00 98.2 70 19 127/57 (80) 97 12/25/18 21:24 126/51 12/25/18 21:23 72 126/51 12/25/18 21:00 Room Air 12/25/18 20:00 99.4 72 19 126/51 (76) 97 12/25/18 17:39 98.8 12/25/18 16:00 100.9 88 18 145/73 (97) 97 12/25/18 15:18 152/63 12/25/18 12:00 87 12/25/18 12:00 98.5 89 18 152/63 (92) 100 12/25/18 09:37 94 149/69 12/25/18 09:37 94 149/69 12/25/18 09:00 Room Air 12/25/18 08:00 98.7 94 18 149/69 (95) 98 12/25/18 08:00 93 Intake and Output 12/25/18 12/26/18 19:00 07:00 Intake Total 360 ml 530 ml Output Total 330 ml 1670 ml Balance 30 ml -1140 ml Intake Oral 360 ml 480 ml IV Total 50 ml Output Urine Total 330 ml 650 ml Peritoneal Dialysis UF 1000 ml Estimated Blood Loss 20 ml # Voids 5 3 # Bowel Movements 1 2 Laboratory Tests 12/25/18 16:15: White Blood Count 20.9#H, Red Blood Count 3.05L, Hemoglobin 9.1L, Hematocrit 28.1L, Mean Corpuscular Volume 92, Mean Corpuscular Hemoglobin 29.9, Mean Corpuscular Hemoglobin Concent 32.5, Red Cell Distribution Width 17.0H, Platelet Count 398, Mean Platelet Volume 5.7L, Neutrophils (%) (Auto) , Lymphocytes (%) (Auto) , Monocytes (%) (Auto) , Eosinophils (%) (Auto) , Basophils (%) (Auto) , Differential Total Cells Counted 100, Neutrophils % ( Manual) 92H, Lymphocytes % (Manual) 7L, Monocytes % (Manual) 1, Eosinophils % ( Manual) 0, Basophils % (Manual) 0, Band Neutrophils 0, Platelet Estimate Adequate, Platelet Morphology Normal, Hypochromasia 1+, Anisocytosis 1+, Sodium Level 138, Potassium Level 4.4, Chloride Level 102, Carbon Dioxide Level 26, Anion Gap 10, Blood Urea Nitrogen 44H, Creatinine 4.7H, Estimat Glomerular Filtration Rate , Glucose Level 259#H, Calcium Level 9.3, Total Bilirubin 0.3, Aspartate Amino Transf (AST/SGOT) 13L, Alanine Aminotransferase (ALT/SGPT) 12, Alkaline Phosphatase 108, Total Protein 7.2, Albumin 2.8L, Globulin 4.4 12/25/18 16:30: Urine Color Pale yellow, Urine Appearance Clear, Urine pH 8, Urine Specific [place] 1.010, Urine Protein 4+H, Urine Glucose (UA) 4+H, Urine Ketones Negative , Urine Blood 1+H, Urine Nitrite Negative, Urine Bilirubin Negative, Urine Urobilinogen Normal, Urine Leukocyte Esterase 2+H, Urine RBC 0-2, Urine WBC 2-4 , Urine Squamous Epithelial Cells Few, Urine Bacteria Few Height (Feet): 5 Height (Inches): 2.00 Weight (Pounds): 101 Objective General Appearance: WD/WN, alert Neck: supple Cardiovascular: normal peripheral pulses, normal rate, regular rhythm Respiratory/Chest: chest wall non-tender, lungs clear, normal breath sounds Abdomen: normal bowel sounds, non tender, soft, no organomegaly Edema: no edema noted Arm (L), no edema noted Arm (R), no edema noted Leg (L), no edema noted Leg (R), no edema noted Pedal (L), no edema noted Pedal (R), no edema noted Generalized Neurologic: alert, responsive, disoriented Nate Beltran MD Dec 26, 2018 06:57
--- NOTE | 2018-12-26 07:31 | NUR ---
HAND-OFF: Report given to Solange SEGUNDO.
[2018-12-26 07:42] LABS: HEMATOCRIT 31.6 % (37.0-47.0); HEMOGLOBIN 10.1 G/DL (12.0-16.0); MEAN CORPUSCULAR VOLUME 94 FL (80-99); PLATELET COUNT 366 K/UL (150-450); RED BLOOD COUNT 3.37 M/UL (4.20-5.40); RED CELL DISTRIBUTION WIDTH 17.5 % (11.6-14.8); WHITE BLOOD COUNT 16.3 K/UL (4.8-10.8)
--- NOTE | 2018-12-26 07:45 | NUR ---
NURSE NOTES: received pt in bed, awake, confused, making sounds, incoherent, on bilateral soft wrist restraints. Pt has a R subclavian permacath HD access and RFA IV access saline locked. Bed locked at the lowest position possible, call light within easy reach, siderails up x3. Will continue to monitor pt and follow up with the POC.
[2018-12-26 07:59] LABS: ALANINE AMINOTRANSFERASE 12 U/L (12-78); ALBUMIN 2.7 G/DL (3.4-5.0); ALBUMIN/GLOBULIN RATIO 0.6 (1.0-2.7); ALKALINE PHOSPHATASE 93 U/L (46-116); ANION GAP 11 mmol/L (5-15); ASPARTATE AMINO TRANSFERASE 15 U/L (15-37); BILIRUBIN,TOTAL 0.3 MG/DL (0.2-1.0); BLOOD UREA NITROGEN 50 mg/dL (7-18); CALCIUM 9.6 MG/DL (8.5-10.1); CARBON DIOXIDE 25 MMOL/L (21-32); CHLORIDE 103 MMOL/L (98-107); CREATININE 5.1 MG/DL (0.55-1.30); PHOSPHORUS 4.1 MG/DL (2.5-4.9); POTASSIUM 4.3 MMOL/L (3.5-5.1); SODIUM 139 MMOL/L (136-145)
[2018-12-26 08:00] VITALS: BP 169/80
[2018-12-26] MEDS ORDERED: NS 275ml ONE ×2 (08:50→15:05)
[2018-12-26] MEDS ORDERED: Vancomycin 1.25gm Premix IVPB SCH (09:00)
[2018-12-26] MEDS: Megace 400mg/10ml Susp ORAL SCH ×2 (10:42→18:22)
[2018-12-26] MEDS: OLANZapine 2.5mg tab ORAL SCH ×3 (10:43→18:22)
[2018-12-26] MEDS: Renvela 800mg Pkt ORAL SCH ×3 (10:43→18:22)
[2018-12-26] MEDS: Heparin 5000 units/ml inj SUBQ SCH ×2 (10:51→21:14)
[2018-12-26 12:00] VITALS: BP 161/77
--- NOTE | 2018-12-26 13:12 | Surgery Progress Note ---
Surgery Progress Note Subjective Symptoms: improved, tolerating diet, passing flatus Objective Last 24 Hour Vital Signs Date Time Temp Pulse Resp B/P (MAP) Pulse Ox O2 Delivery O2 Flow Rate FiO2 12/26/18 12:00 98.3 85 18 161/77 (105) 95 12/26/18 10:48 169/80 12/26/18 10:44 89 169/80 12/26/18 10:42 89 169/80 12/26/18 09:00 Room Air 12/26/18 08:00 98.6 89 19 169/80 (109) 95 12/26/18 05:34 168/71 12/26/18 04:00 99.7 81 19 168/71 (103) 95 12/26/18 00:00 98.2 70 19 127/57 (80) 97 12/25/18 21:24 126/51 12/25/18 21:23 72 126/51 12/25/18 21:00 Room Air 12/25/18 20:00 99.4 72 19 126/51 (76) 97 12/25/18 17:39 98.8 12/25/18 16:00 100.9 88 18 145/73 (97) 97 12/25/18 15:18 152/63 I&O Intake and Output 12/25/18 12/26/18 18:59 06:59 Intake Total 360 ml 530 ml Output Total 330 ml 1670 ml Balance 30 ml -1140 ml Intake Oral 360 ml 480 ml IV Total 50 ml Output Urine Total 330 ml 650 ml Peritoneal Dialysis UF 1000 ml Estimated Blood Loss 20 ml # Voids 5 3 # Bowel Movements 1 2 Dressing: saturated Wound: clean Drains: none Cardiovascular: RSR Respiratory: clear Abdomen: soft, non-tender, present bowel sounds, non-distended Extremities: no edema, no tenderness, no cyanosis Laboratory Tests Test 12/25/18 16:15 12/25/18 16:30 12/26/18 07:20 White Blood Count 20.9 K/UL (4.8-10.8) #H 16.3 K/UL (4.8-10.8) H Red Blood Count 3.05 M/UL (4.20-5.40) L 3.37 M/UL (4.20-5.40) L Hemoglobin 9.1 G/DL (12.0-16.0) L 10.1 G/DL (12.0-16.0) L Hematocrit 28.1 % (37.0-47.0) L 31.6 % (37.0-47.0) L Mean Corpuscular Volume 92 FL (80-99) 94 FL (80-99) Mean Corpuscular Hemoglobin 29.9 PG (27.0-31.0) 30.0 PG (27.0-31.0) Mean Corpuscular Hemoglobin Concent 32.5 G/DL (32.0-36.0) 32.0 G/DL (32.0-36.0) Red Cell Distribution Width 17.0 % (11.6-14.8) H 17.5 % (11.6-14.8) H Platelet Count 398 K/UL (150-450) 366 K/UL (150-450) Mean Platelet Volume 5.7 FL (6.5-10.1) L 6.2 FL (6.5-10.1) L Neutrophils (%) (Auto) % (45.0-75.0) % (45.0-75.0) Lymphocytes (%) (Auto) % (20.0-45.0) % (20.0-45.0) Monocytes (%) (Auto) % (1.0-10.0) % (1.0-10.0) Eosinophils (%) (Auto) % (0.0-3.0) % (0.0-3.0) Basophils (%) (Auto) % (0.0-2.0) % (0.0-2.0) Differential Total Cells Counted 100 100 Neutrophils % (Manual) 92 % (45-75) H 76 % (45-75) H Lymphocytes % (Manual) 7 % (20-45) L 22 % (20-45) Monocytes % (Manual) 1 % (1-10) 2 % (1-10) Eosinophils % (Manual) 0 % (0-3) 0 % (0-3) Basophils % (Manual) 0 % (0-2) 0 % (0-2) Band Neutrophils 0 % (0-8) 0 % (0-8) Platelet Estimate Adequate Adequate Platelet Morphology Normal Normal Hypochromasia 1+ 1+ Anisocytosis 1+ 1+ Sodium Level 138 MMOL/L (136-145) 139 MMOL/L (136-145) Potassium Level 4.4 MMOL/L (3.5-5.1) 4.3 MMOL/L (3.5-5.1) Chloride Level 102 MMOL/L (98-107) 103 MMOL/L (98-107) Carbon Dioxide Level 26 MMOL/L (21-32) 25 MMOL/L (21-32) Anion Gap 10 mmol/L (5-15) 11 mmol/L (5-15) Blood Urea Nitrogen 44 mg/dL (7-18) H 50 mg/dL (7-18) H Creatinine 4.7 MG/DL (0.55-1.30) H 5.1 MG/DL (0.55-1.30) H Estimat Glomerular Filtration Rate mL/min (>60) mL/min (>60) Glucose Level 259 MG/DL (74-106) #H 176 MG/DL (74-106) H Calcium Level 9.3 MG/DL (8.5-10.1) 9.6 MG/DL (8.5-10.1) Total Bilirubin 0.3 MG/DL (0.2-1.0) 0.3 MG/DL (0.2-1.0) Aspartate Amino Transf (AST/SGOT) 13 U/L (15-37) L 15 U/L (15-37) Alanine Aminotransferase (ALT/SGPT) 12 U/L (12-78) 12 U/L (12-78) Alkaline Phosphatase 108 U/L (46-116) 93 U/L (46-116) Total Protein 7.2 G/DL (6.4-8.2) 7.4 G/DL (6.4-8.2) Albumin 2.8 G/DL (3.4-5.0) L 2.7 G/DL (3.4-5.0) L Globulin 4.4 g/dL 4.7 g/dL Urine Color Pale yellow Urine Appearance Clear Urine pH 8 (4.5-8.0) Urine Specific [place] 1.010 (1.005-1.035) Urine Protein 4+ (NEGATIVE) H Urine Glucose (UA) 4+ (NEGATIVE) H Urine Ketones Negative (NEGATIVE) Urine Blood 1+ (NEGATIVE) H Urine Nitrite Negative (NEGATIVE) Urine Bilirubin Negative (NEGATIVE) Urine Urobilinogen Normal MG/DL (0.0-1.0) Urine Leukocyte Esterase 2+ (NEGATIVE) H Urine RBC 0-2 /HPF (0 - 2) Urine WBC 2-4 /HPF (0 - 2) Urine Squamous Epithelial Cells Few /LPF (NONE/OCC) Urine Bacteria Few /HPF (NONE) Phosphorus Level 4.1 MG/DL (2.5-4.9) Albumin/Globulin Ratio 0.6 (1.0-2.7) L Plan Problems: (1) Urinary retention (2) Diabetes mellitus (3) Failure to thrive (0-17) Assessment & Plan: Will continue with nutritional optimization while in hospital (4) Anemia due to acute blood loss (5) Abscess of right hip Assessment & Plan: Abscess of right hip s/p I&D and debridement. was very large concerning wound that requiring prolonged care and still continues to require care as wound is open. wound evaluated at bedside and now much improved. a significant portion of wound has closed and healed. open debridement area now much smaller and with granulation tissue. no signs of active infection. no purulent drainage, remainder of wound reapproximating well. will continue with wound management until completely healed. apply hydrogel infused gauze to right hip open wound daily, cover with foam dressing, change daily. wash wound with dressing changes heel protectors turn q2h off load pressure will monitor while in hospital and care for patient and wounds thank you (6) Renal failure (ARF), acute on chronic (7) ESRD (end stage renal disease) Assessment & Plan: improving with HD cont as per nephro (8) Anemia in CKD (chronic kidney disease) (9) Hypertensive kidney disease (10) Malnutrition Assessment & Plan: DAILY ESTIMATED NEEDS: Needs based on Wounds, DM, ESRD + possible HD/ 39kg 35-40 kcals/kg 9747-0758 total kcals (WITHOUT HD: 0.8-1.1) (WITH HD: 1.25-1.8) g protein/kg (WITHOUT HD: 31-43) (WITH HD: 49-70) g total protein 20-25 mL/kg 780-975 total fluid mLs NUTRITION DIAGNOSIS: * Increased kcal and protein needs r/t wound healing, underweight status, HD needs as evidenced by s/p recent I&D R hip abscess with excisional debridement, pt is underweight per guidelines, generalized moderate wasting, currently w/ an order for PermCath for HD initiation. * Swallowing and chewing difficulty R/T dysphagia, edentulous status as evidenced by pt on pureed moist texture diet. CURRENT DIET:Renal, pureed moist PO DIET RECOMMENDATIONS: RENAL DIET (texture per ASSOCIATE CHIEF NURSE) ADDITIONAL RECOMMENDATIONS: 1) Calibrated bed scale wt for accurate CBW 2) Monitor lytes daily- phos elev 3) WOUND CARE: add Nephrovite x 1, Balta 1pkt BID 4) Monitor for HD initiation- w/ an order for PermCath 5) ASSOCIATE CHIEF NURSE evaluation for appropriate texture 6) Monitor BGs closely, need for NISS- h/o DM Camilo James Dec 26, 2018 13:12
--- NOTE | 2018-12-26 13:31 | Nephrology Progress Note ---
Assessment/Plan Problem List: (1) ESRD (end stage renal disease) (2) Diabetes mellitus (3) Failure to thrive (0-17) (4) Anemia in CKD (chronic kidney disease) (5) Hypertensive kidney disease (6) Malnutrition Assessment Renal failure: - Chronic: Due to underlying ?HTN / DM ... - s/p mild Urinary Retention in ANJEL HyperGlycemia / DM / Proteinuria Anemia s/p Right hip abcess UTI . Plan Plan: one dose Venofer Start Epogen adjust BP meds Renal diet Permacath 12/21 done , it had to be done under anesthesia Keep BP and BS in check HEP Panel ordered per orders start Megace HD next 12/27 med surg Subjective ROS Limited/Unobtainable: No Constitutional: Reports: malaise Objective Objective Last 24 Hour Vital Signs Date Time Temp Pulse Resp B/P (MAP) Pulse Ox O2 Delivery O2 Flow Rate FiO2 12/26/18 13:15 161/77 12/26/18 12:00 98.3 85 18 161/77 (105) 95 12/26/18 10:48 169/80 12/26/18 10:44 89 169/80 12/26/18 10:42 89 169/80 12/26/18 09:00 Room Air 12/26/18 08:00 98.6 89 19 169/80 (109) 95 12/26/18 05:34 168/71 12/26/18 04:00 99.7 81 19 168/71 (103) 95 12/26/18 00:00 98.2 70 19 127/57 (80) 97 12/25/18 21:24 126/51 12/25/18 21:23 72 126/51 12/25/18 21:00 Room Air 12/25/18 20:00 99.4 72 19 126/51 (76) 97 12/25/18 17:39 98.8 12/25/18 16:00 100.9 88 18 145/73 (97) 97 12/25/18 15:18 152/63 Intake and Output 12/25/18 12/26/18 18:59 06:59 Intake Total 360 ml 530 ml Output Total 330 ml 1670 ml Balance 30 ml -1140 ml Intake Oral 360 ml 480 ml IV Total 50 ml Output Urine Total 330 ml 650 ml Peritoneal Dialysis UF 1000 ml Estimated Blood Loss 20 ml # Voids 5 3 # Bowel Movements 1 2 Laboratory Tests 12/25/18 16:15: White Blood Count 20.9#H, Red Blood Count 3.05L, Hemoglobin 9.1L, Hematocrit 28.1L, Mean Corpuscular Volume 92, Mean Corpuscular Hemoglobin 29.9, Mean Corpuscular Hemoglobin Concent 32.5, Red Cell Distribution Width 17.0H, Platelet Count 398, Mean Platelet Volume 5.7L, Neutrophils (%) (Auto) , Lymphocytes (%) (Auto) , Monocytes (%) (Auto) , Eosinophils (%) (Auto) , Basophils (%) (Auto) , Differential Total Cells Counted 100, Neutrophils % ( Manual) 92H, Lymphocytes % (Manual) 7L, Monocytes % (Manual) 1, Eosinophils % ( Manual) 0, Basophils % (Manual) 0, Band Neutrophils 0, Platelet Estimate Adequate, Platelet Morphology Normal, Hypochromasia 1+, Anisocytosis 1+, Sodium Level 138, Potassium Level 4.4, Chloride Level 102, Carbon Dioxide Level 26, Anion Gap 10, Blood Urea Nitrogen 44H, Creatinine 4.7H, Estimat Glomerular Filtration Rate , Glucose Level 259#H, Calcium Level 9.3, Total Bilirubin 0.3, Aspartate Amino Transf (AST/SGOT) 13L, Alanine Aminotransferase (ALT/SGPT) 12, Alkaline Phosphatase 108, Total Protein 7.2, Albumin 2.8L, Globulin 4.4 12/25/18 16:30: Urine Color Pale yellow, Urine Appearance Clear, Urine pH 8, Urine Specific [place] 1.010, Urine Protein 4+H, Urine Glucose (UA) 4+H, Urine Ketones Negative , Urine Blood 1+H, Urine Nitrite Negative, Urine Bilirubin Negative, Urine Urobilinogen Normal, Urine Leukocyte Esterase 2+H, Urine RBC 0-2, Urine WBC 2-4 , Urine Squamous Epithelial Cells Few, Urine Bacteria Few 12/26/18 07:20: White Blood Count 16.3H, Red Blood Count 3.37L, Hemoglobin 10.1L, Hematocrit 31.6L, Mean Corpuscular Volume 94, Mean Corpuscular Hemoglobin 30.0, Mean Corpuscular Hemoglobin Concent 32.0, Red Cell Distribution Width 17.5H, Platelet Count 366, Mean Platelet Volume 6.2L, Neutrophils (%) (Auto) , Lymphocytes (%) (Auto) , Monocytes (%) (Auto) , Eosinophils (%) (Auto) , Basophils (%) (Auto) , Differential Total Cells Counted 100, Neutrophils % ( Manual) 76H, Lymphocytes % (Manual) 22, Monocytes % (Manual) 2, Eosinophils % ( Manual) 0, Basophils % (Manual) 0, Band Neutrophils 0, Platelet Estimate Adequate, Platelet Morphology Normal, Hypochromasia 1+, Anisocytosis 1+, Sodium Level 139, Potassium Level 4.3, Chloride Level 103, Carbon Dioxide Level 25, Anion Gap 11, Blood Urea Nitrogen 50H, Creatinine 5.1H, Estimat Glomerular Filtration Rate , Glucose Level 176H, Calcium Level 9.6, Total Bilirubin 0.3, Aspartate Amino Transf (AST/SGOT) 15, Alanine Aminotransferase (ALT/SGPT) 12, Alkaline Phosphatase 93, Total Protein 7.4, Albumin 2.7L, Globulin 4.7, Phosphorus Level 4.1, Albumin/Globulin Ratio 0.6L Height (Feet): 5 Height (Inches): 2.00 Weight (Pounds): 101 General Appearance: no apparent distress Objective no change William Blackwood MD Dec 26, 2018 13:31
--- NOTE | 2018-12-26 14:18 | NUR ---
NURSE NOTES: Called [facility] the order for 12-27-18, spoke with Pavithra. business process manager will call back to confirm
--- NOTE | 2018-12-26 14:31 | Diagnostic Imaging Report ---
Indication: Dyspnea Comparison: 12/18/2018 A single view chest radiograph was obtained. Findings: Right permacath is present in good position. Lungs are clear. Aorta is ectatic and calcified. Heart size is within normal limits. Bones are osteopenic. IMPRESSION: Permacath. No acute findings
[2018-12-26] MEDS ORDERED: Tubing IV Secondary IV ONE (15:05)
[2018-12-26 16:00] VITALS: BP 138/63
--- NOTE | 2018-12-26 18:00 | NUR ---
NURSE NOTES: changed dressing of the right hip according to order, serous secretion scanty amount noted.
--- NOTE | 2018-12-26 19:15 | NUR ---
HAND-OFF: Report given to SANYA Cooley. Addendum: 12/26/18 at 1958 by MARY ANGULO RN HAND-OFF: Report given to SANYA Walker
--- NOTE | 2018-12-26 19:20 | NUR ---
NURSE NOTES: Received patient in bed. AAO x 1, confused. On room air. Bilateral soft wrists restraints are intact. Permacath on R subclavian vein patent and intact. IV R FA intact. Bed locked, alarm on, lowest position, side rails up, call light within reach. Will continue to monitor.
--- NOTE | 2018-12-26 19:50 | NUR ---
NURSE NOTES: Called TRISTA Saucedo for HD schedule. Lewis will come in the morning on 12/27. BP meds scheduled morning will be held.
[2018-12-26 20:00] VITALS: BP 179/67
[2018-12-26] MEDS: Dyna-Hex 2% Top Sol 2oz TOPIC SCH (21:10)
[2018-12-27] VITALS (7 sets, daily range): BP systolic 135–175; BP diastolic 63–82
--- NOTE | 2018-12-27 03:42 | NUR ---
NURSE NOTES: Bed bath given post on the mite. Wound dressing changed on the R thigh.
[2018-12-27] MEDS: Doxazosin 1mg Tab ORAL SCH ×4 (05:59→22:37)
[2018-12-27] MEDS: HydrALAZINE 25mg tab ORAL SCH ×4 (06:00→22:36)
--- NOTE | 2018-12-27 06:12 | NUR ---
NURSE NOTES: BP was 182/72 @0500. BP meds given as ordered and notified [facility] A[facility]MI[facility] Saucedo.
--- NOTE | 2018-12-27 07:31 | NUR ---
HAND-OFF: Report given to Anat العراقي/SANYA Cai.
--- NOTE | 2018-12-27 07:32 | NUR ---
NURSE NOTES: Received Pt from SANYA Meredith. Pt AO x 1, confused. On room air. Bilateral soft wrist restraint on. Pulse present and no edema. IV on R forearm 20 g intact, patent, with saline lock. Permacath on R subclavian vein patent and intact. Dialysis scheduled for today. Bed in the lowest, locked, with alarm on. Call light within reach. Will continue to monitor
--- NOTE | 2018-12-27 08:12 | General Progress Note ---
Assessment/Plan Problem List: (1) Diabetes mellitus ICD Codes: E11.9 - Type 2 diabetes mellitus without complications SNOMED: 83600592 (2) Anemia due to acute blood loss ICD Codes: D62 - Acute posthemorrhagic anemia SNOMED: 323123592 (3) Failure to thrive (0-17) ICD Codes: R62.51 - Failure to thrive (0-17) SNOMED: 774871823 (4) Abscess of right hip ICD Codes: L02.415 - Cutaneous abscess of right lower limb SNOMED: 215926 (5) Renal failure (ARF), acute on chronic ICD Codes: N17.9 - Acute kidney failure, unspecified; N18.9 - Chronic kidney disease, unspecified SNOMED: 195360210 (6) ESRD (end stage renal disease) ICD Codes: N18.6 - End stage renal disease SNOMED: 17285747 (7) Anemia in CKD (chronic kidney disease) ICD Codes: N18.9 - Chronic kidney disease, unspecified; D63.1 - Anemia in chronic kidney disease SNOMED: 041551619 (8) Hypertensive kidney disease ICD Codes: I12.9 - Hypertensive chronic kidney disease with stage 1 through stage 4 chronic kidney disease, or unspecified chronic kidney disease SNOMED: 61654735 Status: stable Assessment/Plan: HD per renal anxiolytics wound care per gen surgery skin care follow up cultures/sensitivities iv abx id eval pending Subjective ROS Limited/Unobtainable: No Constitutional: Reports: malaise, weakness HEENT: Reports: no symptoms Cardiovascular: Reports: no symptoms Respiratory: Reports: no symptoms Gastrointestinal/Abdominal: Reports: no symptoms Genitourinary: Reports: no symptoms Neurologic/Psychiatric: Reports: pre-existing deficit Endocrine: Reports: no symptoms Hematologic/Lymphatic: Reports: no symptoms Allergies: Coded Allergies: No Known Allergies (Unverified , 11/12/18) All Systems: reviewed and negative except above Subjective fevers better. +itching. treated with elimite again. +s.aureus in blood. ID eval pending Objective Last 24 Hour Vital Signs Date Time Temp Pulse Resp B/P (MAP) Pulse Ox O2 Delivery O2 Flow Rate FiO2 12/27/18 06:00 182/72 12/27/18 04:00 98.5 75 20 175/76 (109) 95 12/27/18 00:00 99.8 82 19 140/79 (99) 95 12/26/18 21:13 179/67 12/26/18 21:12 90 179/67 12/26/18 21:00 Room Air 12/26/18 20:00 98.5 93 19 179/67 (104) 96 12/26/18 16:00 99.9 82 15 138/63 (88) 95 12/26/18 13:15 161/77 12/26/18 12:00 98.3 85 18 161/77 (105) 95 12/26/18 10:48 169/80 12/26/18 10:44 89 169/80 12/26/18 10:42 89 169/80 12/26/18 09:00 Room Air Intake and Output 12/26/18 12/27/18 19:00 07:00 Intake Total 681.000 ml 225 ml Output Total 710 ml Balance 681.000 ml -485 ml Intake Oral 400 ml 200 ml IV Total 281.000 ml 25 ml Output Urine Total 200 ml Peritoneal Dialysis UF 500 ml Estimated Blood Loss 10 ml # Voids 1 # Bowel Movements 2 Laboratory Tests 12/27/18 05:25: Random Vancomycin Level 22.2 Height (Feet): 5 Height (Inches): 2.00 Weight (Pounds): 101 Objective General Appearance: WD/WN, alert Neck: supple Cardiovascular: normal peripheral pulses, normal rate, regular rhythm Respiratory/Chest: chest wall non-tender, lungs clear, normal breath sounds Abdomen: normal bowel sounds, non tender, soft, no organomegaly Edema: no edema noted Arm (L), no edema noted Arm (R), no edema noted Leg (L), no edema noted Leg (R), no edema noted Pedal (L), no edema noted Pedal (R), no edema noted Generalized Neurologic: alert, responsive, disoriented Nate Beltran MD Dec 27, 2018 08:12
[2018-12-27] MEDS: Renvela 800mg Pkt ORAL SCH ×3 (08:39→17:06)
[2018-12-27] MEDS: Megace 400mg/10ml Susp ORAL SCH ×2 (08:39→17:05)
[2018-12-27] MEDS: OLANZapine 2.5mg tab ORAL SCH ×3 (08:39→17:06)
[2018-12-27] MEDS: Heparin 5000 units/ml inj SUBQ SCH ×2 (08:41→22:37)
--- NOTE | 2018-12-27 11:16 | Surgery Progress Note ---
Surgery Progress Note Subjective Symptoms: improved, tolerating diet, passing flatus Objective Last 24 Hour Vital Signs Date Time Temp Pulse Resp B/P (MAP) Pulse Ox O2 Delivery O2 Flow Rate FiO2 12/27/18 10:00 170/82 12/27/18 09:00 Room Air 12/27/18 08:39 77 170/82 12/27/18 08:38 77 170/82 12/27/18 08:00 98.8 77 19 170/82 (111) 98 12/27/18 06:00 182/72 12/27/18 04:00 98.5 75 20 175/76 (109) 95 12/27/18 00:00 99.8 82 19 140/79 (99) 95 12/26/18 21:13 179/67 12/26/18 21:12 90 179/67 12/26/18 21:00 Room Air 12/26/18 20:00 98.5 93 19 179/67 (104) 96 12/26/18 16:00 99.9 82 15 138/63 (88) 95 12/26/18 13:15 161/77 12/26/18 12:00 98.3 85 18 161/77 (105) 95 I&O Intake and Output 12/26/18 12/27/18 19:00 07:00 Intake Total 681.000 ml 225 ml Output Total 710 ml Balance 681.000 ml -485 ml Intake Oral 400 ml 200 ml IV Total 281.000 ml 25 ml Output Urine Total 200 ml Peritoneal Dialysis UF 500 ml Estimated Blood Loss 10 ml # Voids 1 # Bowel Movements 2 Dressing: saturated Wound: clean Cardiovascular: RSR Respiratory: clear Abdomen: soft, flat, non-tender, present bowel sounds Extremities: no edema, no tenderness, no cyanosis, other Laboratory Tests Test 12/27/18 05:25 Random Vancomycin Level 22.2 ug/mL Plan Problems: (1) Urinary retention (2) Diabetes mellitus (3) Failure to thrive (0-17) Assessment & Plan: Will continue with nutritional optimization while in hospital (4) Anemia due to acute blood loss (5) Abscess of right hip Assessment & Plan: Abscess of right hip s/p I&D and debridement. was very large concerning wound that requiring prolonged care and still continues to require care as wound is open. wound evaluated at bedside and now much improved. a significant portion of wound has closed and healed. open debridement area now much smaller and with granulation tissue. no signs of active infection. no purulent drainage, remainder of wound reapproximating well. will continue with wound management until completely healed. apply hydrogel infused gauze to right hip open wound daily, cover with foam dressing, change daily. wash wound with dressing changes heel protectors turn q2h off load pressure will monitor while in hospital and care for patient and wounds thank you (6) Renal failure (ARF), acute on chronic (7) ESRD (end stage renal disease) Assessment & Plan: improving with HD cont as per nephro (8) Anemia in CKD (chronic kidney disease) (9) Hypertensive kidney disease (10) Malnutrition Assessment & Plan: DAILY ESTIMATED NEEDS: Needs based on Wounds, DM, ESRD + possible HD/ 39kg 35-40 kcals/kg 7962-6229 total kcals (WITHOUT HD: 0.8-1.1) (WITH HD: 1.25-1.8) g protein/kg (WITHOUT HD: 31-43) (WITH HD: 49-70) g total protein 20-25 mL/kg 780-975 total fluid mLs NUTRITION DIAGNOSIS: * Increased kcal and protein needs r/t wound healing, underweight status, HD needs as evidenced by s/p recent I&D R hip abscess with excisional debridement, pt is underweight per guidelines, generalized moderate wasting, currently w/ an order for PermCath for HD initiation. * Swallowing and chewing difficulty R/T dysphagia, edentulous status as evidenced by pt on pureed moist texture diet. CURRENT DIET:Renal, pureed moist PO DIET RECOMMENDATIONS: RENAL DIET (texture per BRIDGE TENDER) ADDITIONAL RECOMMENDATIONS: 1) Calibrated bed scale wt for accurate CBW 2) Monitor lytes daily- phos elev 3) WOUND CARE: add Nephrovite x 1, Balta 1pkt BID 4) Monitor for HD initiation- w/ an order for PermCath 5) BRIDGE TENDER evaluation for appropriate texture 6) Monitor BGs closely, need for NISS- h/o DM Camilo James Dec 27, 2018 11:16
--- NOTE | 2018-12-27 12:29 | Nephrology Progress Note ---
Assessment/Plan Problem List: (1) ESRD (end stage renal disease) (2) Diabetes mellitus (3) Failure to thrive (0-17) (4) Anemia in CKD (chronic kidney disease) (5) Hypertensive kidney disease (6) Malnutrition (7) Staphylococcus aureus bacteremia Assessment Renal failure: - Chronic: Due to underlying ?HTN / DM ... - s/p mild Urinary Retention in ANJEL HyperGlycemia / DM / Proteinuria Anemia s/p Right hip abcess UTI . Plan Plan: o Vanco one dose Venofer On Epogen adjust BP meds Renal diet Permacath 12/21 done , it had to be done under anesthesia Keep BP and BS in check HEP Panel ordered per orders start Megace HD next 12/27 med surg Subjective ROS Limited/Unobtainable: Yes Objective Objective Last 24 Hour Vital Signs Date Time Temp Pulse Resp B/P (MAP) Pulse Ox O2 Delivery O2 Flow Rate FiO2 12/27/18 12:00 98.3 73 19 146/81 (102) 97 12/27/18 10:00 170/82 12/27/18 09:00 Room Air 12/27/18 08:39 77 170/82 12/27/18 08:38 77 170/82 12/27/18 08:00 98.8 77 19 170/82 (111) 98 12/27/18 06:00 182/72 12/27/18 04:00 98.5 75 20 175/76 (109) 95 12/27/18 00:00 99.8 82 19 140/79 (99) 95 12/26/18 21:13 179/67 12/26/18 21:12 90 179/67 12/26/18 21:00 Room Air 12/26/18 20:00 98.5 93 19 179/67 (104) 96 12/26/18 16:00 99.9 82 15 138/63 (88) 95 12/26/18 13:15 161/77 Intake and Output 12/26/18 12/27/18 18:59 06:59 Intake Total 681.000 ml 225 ml Output Total 710 ml Balance 681.000 ml -485 ml Intake Oral 400 ml 200 ml IV Total 281.000 ml 25 ml Output Urine Total 200 ml Peritoneal Dialysis UF 500 ml Estimated Blood Loss 10 ml # Voids 1 # Bowel Movements 2 Laboratory Tests 12/27/18 05:25: Random Vancomycin Level 22.2 Height (Feet): 5 Height (Inches): 2.00 Weight (Pounds): 101 General Appearance: no apparent distress Cardiovascular: normal rate Respiratory/Chest: decreased breath sounds Abdomen: soft Objective no change William Blackwood MD Dec 27, 2018 12:29
--- NOTE | 2018-12-27 13:47 | NUR ---
NURSE NOTES: Dialysis was done. Output 500 cc. BP 140/64
--- NOTE | 2018-12-27 14:55 | NUR ---
CASE MANAGEMENT:REVIEW 12/27/18 SI: ACUTE RENAL FAILURE *NEW TO DIALYSIS 99.8 77 19 170/82 98% ON RA WBC+16.3 IS: CLONIDINE PATCH QWEEK NORVASC PO QD COREG PO Q12 HEPARIN SQ Q12 REMERON PO QHS MEGACE PO BID CARDURA PO Q8HR HYDRALAZINE PO Q8HRS : TELEMETRY STATUS DCP: FROM [facility] PLAN: HAS BEEN REFERRED TO [facility] FOR [facility]PATIENT DIALYSIS
--- NOTE | 2018-12-27 17:15 | Consultation ---
DATE OF CONSULTATION: 12/27/2018 INFECTIOUS DISEASES CONSULTATION CONSULTING PHYSICIAN: Melissa Solares M.D. REFERRING PHYSICIAN: Nate Beltran M.D. REASON FOR CONSULTATION: Bacteremia. HISTORY OF PRESENTING ILLNESS: This is a 78-year-old lady with history of hypertension, schizophrenia, chronic kidney disease, right thigh abscess, status post I and D, who came in with poor p.o. intake as well as renal failure. She was found to be bacteremic and an Infectious Diseases consultation has been obtained for antibiotics. PAST MEDICAL HISTORY: 1. History of right thigh abscess, status post I and D. 2. Chronic kidney disease. 3. Hypertension. 4. Schizophrenia. SOCIAL HISTORY: No history of smoking, alcohol, or drug use. FAMILY HISTORY: Unknown. REVIEW OF SYSTEMS: Unable to obtain currently. MEDICATIONS: As an inpatient, she is on amlodipine, Prevacid, IV vancomycin, levothyroxine, Coreg, subcutaneous heparin, mirtazapine, chlorhexidine, gluconate, Megace, Tylenol, Ovalo, doxazosin, hydralazine, haloperidol, lactulose, Imodium, Benadryl, Zyprexa, and Renvela. ALLERGIES: No known drug allergies. PHYSICAL EXAMINATION: VITAL SIGNS: Temperature of 98.8, T-max of 99.9, pulse of 77, respiratory rate of 19, blood pressure 170/82, O2 saturation of 98%. HEENT: Pupils equally reactive to light and accommodation. Mouth appears clean without thrush. NECK: Supple. No adenopathy. No JVD. CARDIOVASCULAR: Regular rate and rhythm. No murmurs. LUNGS: Clear to auscultation bilaterally. No crackles. No wheezes. ABDOMEN: Soft and nontender. No organomegaly. EXTREMITIES: No cyanosis, no clubbing, no edema. Right subclavian catheter noted. LABORATORY AND DIAGNOSTIC DATA: White count of 16.3, 10.1, 31.6, MCV 94, platelet count of 366. Sodium 139, potassium 4.3, chloride 103, bicarb 25, BUN 50, creatinine 5.1, glucose 176, calcium 9.6. Total bilirubin 0.3. AST 15, ALT 12, and alkaline phosphatase 93. Total protein 7.4, albumin 2.7. UA is showing 2-4 white cells. Blood cultures from 12/25/2018 growing Staph aureus. Sensitivities are pending. Rectal swab was negative for VRE on 12/18/2018, nasal swab was negative for MRSA on 12/18/2018, on 12/25/2018 urine culture showing mixed gram-positive organism. Chest x-ray is showing no acute findings. ASSESSMENT: This is a 78-year-old lady with history of hypertension, schizophrenia, chronic kidney disease, who comes in and was found to have. 1. Staph aureus sepsis, would like to rule out endocarditis as a possibility. 2. Leukocytosis is improving. 3. Right thigh abscess, status post I and D. 4. Renal failure. PLAN: 1. Continue IV vancomycin after dialysis. 2. We will order a 2D echocardiogram. 3. We will follow up cultures and adjust antibiotics accordingly. I would like to thank, Dr. Beltran, for this consultation. Melsisa Solares M.D. DR: KEO JOB#: [id number] CC: Nate Beltran M.D.
--- NOTE | 2018-12-27 19:11 | NUR ---
HAND-OFF: Report given to Pamela Masterson.
--- NOTE | 2018-12-27 19:15 | NUR ---
NURSE NOTES: RECEIVED PT FROM SANYA ZAVALETA AND SANYA YA. PT IS ASLEEP, AAOX1, NON-VERBAL. PT IS ON ROOM AIR, NO ACUTE DISTRESS NOTED. PT IS ON BILATERAL SOFT WRIST RESTRAINTS, PULSES PRESENT, NO REDNESS NOTED. IV ON RIGHT FOREARM, 22G, INTACT AND PATENT. DRESSINGS ON RIGHT THIGH IS INTACT AND DRY. BED IS LOCKED AT THE LOWEST POSITION, BED ALARMS ACTIVE, SIDE RAILS UP X3, AND CALL LIGHT IS WITHIN REACH. WILL CONTINUE TO MONITOR.
[2018-12-27] MEDS: Dyna-Hex 2% Top Sol 2oz TOPIC SCH (22:36)
[2018-12-27] MEDS: Epoetin Alfa-EPBX(ESRD on dialysis)10,000 unit/ml vial SUBQ SCH (22:40)
[2018-12-28] VITALS: BP 144/59
[2018-12-28 04:00] VITALS: BP 160/58
[2018-12-28] MEDS: Doxazosin 1mg Tab ORAL SCH ×3 (06:09→22:00)
[2018-12-28] MEDS: HydrALAZINE 25mg tab ORAL SCH ×3 (06:09→22:00)
[2018-12-28 07:03] LABS: BASOPHILS % (AUTO) 0.5 % (0.0-2.0); HEMOGLOBIN 8.6 G/DL (12.0-16.0); LYMPHOCYTES % (AUTO) 21.7 % (20.0-45.0); MEAN CORPUSCULAR VOLUME 93 FL (80-99); MONOCYTES % (AUTO) 5.8 % (1.0-10.0); PLATELET COUNT 259 K/UL (150-450); RED CELL DISTRIBUTION WIDTH 16.9 % (11.6-14.8); WHITE BLOOD COUNT 12.8 K/UL (4.8-10.8)
[2018-12-28 07:22] LABS: ALANINE AMINOTRANSFERASE 6 U/L (12-78); ALBUMIN 2.1 G/DL (3.4-5.0); ALBUMIN/GLOBULIN RATIO 0.5 (1.0-2.7); ALKALINE PHOSPHATASE 93 U/L (46-116); ANION GAP 8 mmol/L (5-15); ASPARTATE AMINO TRANSFERASE 16 U/L (15-37); BILIRUBIN,TOTAL 0.3 MG/DL (0.2-1.0); BLOOD UREA NITROGEN 43 mg/dL (7-18); CARBON DIOXIDE 30 MMOL/L (21-32); CHLORIDE 99 MMOL/L (98-107); PHOSPHORUS 2.5 MG/DL (2.5-4.9); POTASSIUM 3.4 MMOL/L (3.5-5.1); SODIUM 137 MMOL/L (136-145)
--- NOTE | 2018-12-28 07:40 | NUR ---
NURSE NOTES: pt in bed with no sob nor in any form of distress noted. pt with (B) soft wrist restraint with good circulation. breathing regular and unlabored. denies pain at this time. Afebrile. will continue to monitor
[2018-12-28 07:41] LABS: CREATININE 4.1 MG/DL (0.55-1.30)
[2018-12-28 08:00] VITALS: BP 119/60
--- NOTE | 2018-12-28 08:22 | NUR ---
HAND-OFF: Report given to SANYA GARCIA. Addendum: 12/28/18 at 0823 by Aleja Summers RN REPORT GIVEN TO SANYA YA.
[2018-12-28] MEDS: Megace 400mg/10ml Susp ORAL SCH ×2 (08:25→17:44)
[2018-12-28] MEDS: OLANZapine 2.5mg tab ORAL SCH ×3 (08:26→17:44)
[2018-12-28] MEDS: Renvela 800mg Pkt ORAL SCH ×3 (08:26→17:44)
[2018-12-28] MEDS: Heparin 5000 units/ml inj SUBQ SCH ×2 (08:27→22:15)
[2018-12-28] MEDS ORDERED: Vancomycin 1gm in D5W 275ml IVPB SCH (09:00)
--- NOTE | 2018-12-28 10:23 | NUR ---
NURSE NOTES: informed dr. fierro regarding potassium 3.4 and received NNO.
[2018-12-28 12:00] VITALS: BP 100/57
--- NOTE | 2018-12-28 13:14 | Nephrology Progress Note ---
Assessment/Plan Problem List: (1) ESRD (end stage renal disease) (2) Diabetes mellitus (3) Failure to thrive (0-17) (4) Anemia in CKD (chronic kidney disease) (5) Hypertensive kidney disease (6) Malnutrition (7) Staphylococcus aureus bacteremia Assessment Renal failure: - Chronic: Due to underlying ?HTN / DM ... - s/p mild Urinary Retention in ANJEL HyperGlycemia / DM / Proteinuria Anemia s/p Right hip abcess UTI . Plan Plan: On Vanco one dose Venofer On Epogen adjust BP meds Renal diet Permacath 12/21 done , it had to be done under anesthesia Keep BP and BS in check HEP Panel ordered per orders start Megace HD next 12/29 med surg Subjective ROS Limited/Unobtainable: No Constitutional: Reports: malaise, weakness Objective Objective Last 24 Hour Vital Signs Date Time Temp Pulse Resp B/P (MAP) Pulse Ox O2 Delivery O2 Flow Rate FiO2 12/28/18 12:00 99.8 77 19 100/57 (71) 95 77 12/28/18 09:00 Room Air 12/28/18 08:26 77 160/58 12/28/18 08:26 77 160/58 12/28/18 08:00 98.6 84 19 119/60 (79) 95 77 12/28/18 06:09 160/58 12/28/18 04:00 99.9 77 18 160/58 (92) 95 77 12/28/18 00:00 99.8 82 20 144/59 (87) 97 82 12/27/18 22:37 77 146/63 12/27/18 22:36 146/63 12/27/18 21:00 Room Air 12/27/18 20:00 99.8 76 18 146/63 (90) 95 76 12/27/18 16:00 97.8 76 18 135/70 (91) 97 12/27/18 14:50 77 135/63 (87) 12/27/18 14:49 135/63 Intake and Output 12/27/18 12/28/18 19:00 07:00 Intake Total 200 ml Balance 200 ml Intake Oral 200 ml # Voids 3 Laboratory Tests 12/28/18 05:25: White Blood Count 12.8H, Red Blood Count 2.90L, Hemoglobin 8.6L, Hematocrit 27.0L, Mean Corpuscular Volume 93, Mean Corpuscular Hemoglobin 29.8, Mean Corpuscular Hemoglobin Concent 32.0, Red Cell Distribution Width 16.9H, Platelet Count 259, Mean Platelet Volume 7.0, Neutrophils (%) (Auto) 72.0, Lymphocytes (%) (Auto) 21.7, Monocytes (%) (Auto) 5.8, Eosinophils (%) (Auto) 0.0, Basophils (%) (Auto) 0.5, Sodium Level 137, Potassium Level 3.4L, Chloride Level 99, Carbon Dioxide Level 30, Anion Gap 8, Blood Urea Nitrogen 43H, Creatinine 4.1H, Estimat Glomerular Filtration Rate , Glucose Level 174H, Calcium Level 9.0, Phosphorus Level 2.5, Total Bilirubin 0.3, Aspartate Amino Transf (AST/SGOT) 16, Alanine Aminotransferase (ALT/SGPT) 6L, Alkaline Phosphatase 93, C-Reactive Protein, Quantitative 26.2H, Pro-B-Type Natriuretic Peptide 6684H, Total Protein 6.5, Albumin 2.1L, Globulin 4.4, Albumin/Globulin Ratio 0.5L Height (Feet): 5 Height (Inches): 2.00 Weight (Pounds): 101 Objective no change William Blackwood MD Dec 28, 2018 13:14
--- NOTE | 2018-12-28 13:36 | NUR ---
RD ASSESSMENT & RECOMMENDATIONS SEE CARE ACTIVITY FOR COMPLETE ASSESSMENT DAILY ESTIMATED NEEDS: Needs based on Wounds, DM, ESRD+ HD/ 39kg 35-40 kcals/kg 2701-3327 total kcals 1.25-1.8 g protein/kg 49-70 g total protein 20-25 mL/kg 780-975 total fluid mLs NUTRITION DIAGNOSIS: * Increased kcal and protein needs r/t wound healing, underweight status, HD needs as evidenced by s/p recent I&D R hip abscess with excisional debridement, pt is underweight per guidelines, generalized moderate wasting, ESRD, now on HD. * Swallowing and chewing difficulty R/T dysphagia, edentulous status as evidenced by pt on pureed moist texture, NTL diet. CURRENT DIET:Renal, pureed moist w/ NTL PO DIET RECOMMENDATIONS: RENAL DIET (texture per DOUGH PANNER) ADDITIONAL RECOMMENDATIONS: 1) Calibrated bed scale wt for accurate CBW 2) Monitor lytes, replete as needed (low K) 3) WOUND CARE: add Nephrovite x 1, Balta 1pkt BID 4) DOUGH PANNER evaluation for appropriate texture 5) Rec NISS- h/o DM, elev BGs (174, 176, 259) 6) 4oz Nepro TID w/ meals .
--- NOTE | 2018-12-28 15:10 | NUR ---
NURSE NOTES:WOUND CARE FOLLOW-UP NOTES: Dry scaly rash resolving. Pt observed still scratching when restraints are released. Full thickness Wound R trochanter resolving. [place] granulation noted at base of wound with tunneling (L)5.5cm x (W)1.7cm x (D)0.8cm,Undermining 10-2 by 3.7cm @11o'clock. No odor or exudate noted. Dark skin pigmentation without erythema or induration periwound. Sacral areais pink and blanchable. Both heels are firm and blanchable. No new skin concerns noted. Wound Tx is effective and continued as ordered.All wound prevention protocols are being observed and continued as ordered. Pt has an APM/ELVIA mattress overlay and is being repositioned as per pt's tolerance.
--- NOTE | 2018-12-28 15:49 | Surgery Progress Note ---
Surgery Progress Note Subjective Symptoms: improved Additional Comments stable no acute events HD prn nephrology labs noted Objective Last 24 Hour Vital Signs Date Time Temp Pulse Resp B/P (MAP) Pulse Ox O2 Delivery O2 Flow Rate FiO2 12/28/18 13:20 100/57 12/28/18 12:00 99.8 77 19 100/57 (71) 95 77 12/28/18 09:00 Room Air 12/28/18 08:26 77 160/58 12/28/18 08:26 77 160/58 12/28/18 08:00 98.6 84 19 119/60 (79) 95 77 12/28/18 06:09 160/58 12/28/18 04:00 99.9 77 18 160/58 (92) 95 77 12/28/18 00:00 99.8 82 20 144/59 (87) 97 82 12/27/18 22:37 77 146/63 12/27/18 22:36 146/63 12/27/18 21:00 Room Air 12/27/18 20:00 99.8 76 18 146/63 (90) 95 76 12/27/18 16:00 97.8 76 18 135/70 (91) 97 I&O Intake and Output 12/27/18 12/28/18 18:59 06:59 Intake Total 200 ml Balance 200 ml Intake Oral 200 ml # Voids 3 Dressing: saturated Wound: clean Cardiovascular: RSR Respiratory: clear Abdomen: soft, present bowel sounds, non-distended Extremities: no edema, no tenderness, no cyanosis Laboratory Tests Test 12/28/18 05:25 White Blood Count 12.8 K/UL (4.8-10.8) H Red Blood Count 2.90 M/UL (4.20-5.40) L Hemoglobin 8.6 G/DL (12.0-16.0) L Hematocrit 27.0 % (37.0-47.0) L Mean Corpuscular Volume 93 FL (80-99) Mean Corpuscular Hemoglobin 29.8 PG (27.0-31.0) Mean Corpuscular Hemoglobin Concent 32.0 G/DL (32.0-36.0) Red Cell Distribution Width 16.9 % (11.6-14.8) H Platelet Count 259 K/UL (150-450) Mean Platelet Volume 7.0 FL (6.5-10.1) Neutrophils (%) (Auto) 72.0 % (45.0-75.0) Lymphocytes (%) (Auto) 21.7 % (20.0-45.0) Monocytes (%) (Auto) 5.8 % (1.0-10.0) Eosinophils (%) (Auto) 0.0 % (0.0-3.0) Basophils (%) (Auto) 0.5 % (0.0-2.0) Sodium Level 137 MMOL/L (136-145) Potassium Level 3.4 MMOL/L (3.5-5.1) L Chloride Level 99 MMOL/L (98-107) Carbon Dioxide Level 30 MMOL/L (21-32) Anion Gap 8 mmol/L (5-15) Blood Urea Nitrogen 43 mg/dL (7-18) H Creatinine 4.1 MG/DL (0.55-1.30) H Estimat Glomerular Filtration Rate mL/min (>60) Glucose Level 174 MG/DL (74-106) H Calcium Level 9.0 MG/DL (8.5-10.1) Phosphorus Level 2.5 MG/DL (2.5-4.9) Total Bilirubin 0.3 MG/DL (0.2-1.0) Aspartate Amino Transf (AST/SGOT) 16 U/L (15-37) Alanine Aminotransferase (ALT/SGPT) 6 U/L (12-78) L Alkaline Phosphatase 93 U/L (46-116) C-Reactive Protein, Quantitative 26.2 mg/dL (0.00-0.90) H Pro-B-Type Natriuretic Peptide 6684 pg/mL (0-125) H Total Protein 6.5 G/DL (6.4-8.2) Albumin 2.1 G/DL (3.4-5.0) L Globulin 4.4 g/dL Albumin/Globulin Ratio 0.5 (1.0-2.7) L Plan Problems: (1) Urinary retention (2) Diabetes mellitus (3) Failure to thrive (0-17) Assessment & Plan: Will continue with nutritional optimization while in hospital (4) Anemia due to acute blood loss (5) Abscess of right hip Assessment & Plan: Abscess of right hip s/p I&D and debridement. was very large concerning wound that requiring prolonged care and still continues to require care as wound is open. wound evaluated at bedside and now much improved. a significant portion of wound has closed and healed. open debridement area now much smaller and with granulation tissue. no signs of active infection. no purulent drainage, remainder of wound reapproximating well. will continue with wound management until completely healed. apply hydrogel infused gauze to right hip open wound daily, cover with foam dressing, change daily. wash wound with dressing changes heel protectors turn q2h off load pressure will monitor while in hospital and care for patient and wounds thank you (6) Renal failure (ARF), acute on chronic (7) ESRD (end stage renal disease) Assessment & Plan: improving with HD cont as per nephro (8) Anemia in CKD (chronic kidney disease) (9) Hypertensive kidney disease (10) Malnutrition Assessment & Plan: DAILY ESTIMATED NEEDS: Needs based on Wounds, DM, ESRD + possible HD/ 39kg 35-40 kcals/kg 4947-8058 total kcals (WITHOUT HD: 0.8-1.1) (WITH HD: 1.25-1.8) g protein/kg (WITHOUT HD: 31-43) (WITH HD: 49-70) g total protein 20-25 mL/kg 780-975 total fluid mLs NUTRITION DIAGNOSIS: * Increased kcal and protein needs r/t wound healing, underweight status, HD needs as evidenced by s/p recent I&D R hip abscess with excisional debridement, pt is underweight per guidelines, generalized moderate wasting, currently w/ an order for PermCath for HD initiation. * Swallowing and chewing difficulty R/T dysphagia, edentulous status as evidenced by pt on pureed moist texture diet. CURRENT DIET:Renal, pureed moist PO DIET RECOMMENDATIONS: RENAL DIET (texture per GROUTER HELPER) ADDITIONAL RECOMMENDATIONS: 1) Calibrated bed scale wt for accurate CBW 2) Monitor lytes daily- phos elev 3) WOUND CARE: add Nephrovite x 1, Balta 1pkt BID 4) Monitor for HD initiation- w/ an order for PermCath 5) GROUTER HELPER evaluation for appropriate texture 6) Monitor BGs closely, need for NISS- h/o DM Camilo James Dec 28, 2018 15:49
[2018-12-28 16:00] VITALS: BP 106/51
--- NOTE | 2018-12-28 16:11 | NUR ---
NURSE NOTES: VIP dialysis nurse (Lewis) presented in the unit and confirmed with her of pt's dialysis scheduled for tomorrow 12/29/18
--- NOTE | 2018-12-28 16:49 | General Progress Note ---
Assessment/Plan Problem List: (1) Diabetes mellitus ICD Codes: E11.9 - Type 2 diabetes mellitus without complications SNOMED: 00574991 (2) Anemia due to acute blood loss ICD Codes: D62 - Acute posthemorrhagic anemia SNOMED: 286397498 (3) Failure to thrive (0-17) ICD Codes: R62.51 - Failure to thrive (0-17) SNOMED: 454400575 (4) Abscess of right hip ICD Codes: L02.415 - Cutaneous abscess of right lower limb SNOMED: 212210 (5) Renal failure (ARF), acute on chronic ICD Codes: N17.9 - Acute kidney failure, unspecified; N18.9 - Chronic kidney disease, unspecified SNOMED: 851392316 (6) ESRD (end stage renal disease) ICD Codes: N18.6 - End stage renal disease SNOMED: 03722855 (7) Anemia in CKD (chronic kidney disease) ICD Codes: N18.9 - Chronic kidney disease, unspecified; D63.1 - Anemia in chronic kidney disease SNOMED: 240005335 (8) Hypertensive kidney disease ICD Codes: I12.9 - Hypertensive chronic kidney disease with stage 1 through stage 4 chronic kidney disease, or unspecified chronic kidney disease SNOMED: 68656288 Status: stable Assessment/Plan: HD per renal anxiolytics wound care per gen surgery skin care iv abx per id echo Subjective Time patient seen: 07:30 ROS Limited/Unobtainable: No Constitutional: Reports: malaise, weakness HEENT: Reports: no symptoms Cardiovascular: Reports: no symptoms Respiratory: Reports: no symptoms Gastrointestinal/Abdominal: Reports: no symptoms Genitourinary: Reports: no symptoms Neurologic/Psychiatric: Reports: anxiety, emotional problems Endocrine: Reports: no symptoms Hematologic/Lymphatic: Reports: anemia Allergies: Coded Allergies: No Known Allergies (Unverified , 11/12/18) All Systems: reviewed and negative except above Subjective fevers better. decreased itching. treated with elimite again. +s.aureus in blood. ID eval appreciated Objective Last 24 Hour Vital Signs Date Time Temp Pulse Resp B/P (MAP) Pulse Ox O2 Delivery O2 Flow Rate FiO2 12/28/18 13:20 100/57 12/28/18 12:00 99.8 77 19 100/57 (71) 95 77 12/28/18 09:00 Room Air 7/16/19 08:26 77 160/58 12/28/18 08:26 77 160/58 12/28/18 08:00 98.6 84 19 119/60 (79) 95 77 12/28/18 06:09 160/58 12/28/18 04:00 99.9 77 18 160/58 (92) 95 77 12/28/18 00:00 99.8 82 20 144/59 (87) 97 82 12/27/18 22:37 77 146/63 12/27/18 22:36 146/63 12/27/18 21:00 Room Air 12/27/18 20:00 99.8 76 18 146/63 (90) 95 76 Intake and Output 12/27/18 12/28/18 19:00 07:00 Intake Total 200 ml Balance 200 ml Intake Oral 200 ml # Voids 3 Laboratory Tests 12/28/18 05:25: White Blood Count 12.8H, Red Blood Count 2.90L, Hemoglobin 8.6L, Hematocrit 27.0L, Mean Corpuscular Volume 93, Mean Corpuscular Hemoglobin 29.8, Mean Corpuscular Hemoglobin Concent 32.0, Red Cell Distribution Width 16.9H, Platelet Count 259, Mean Platelet Volume 7.0, Neutrophils (%) (Auto) 72.0, Lymphocytes (%) (Auto) 21.7, Monocytes (%) (Auto) 5.8, Eosinophils (%) (Auto) 0.0, Basophils (%) (Auto) 0.5, Sodium Level 137, Potassium Level 3.4L, Chloride Level 99, Carbon Dioxide Level 30, Anion Gap 8, Blood Urea Nitrogen 43H, Creatinine 4.1H, Estimat Glomerular Filtration Rate , Glucose Level 174H, Calcium Level 9.0, Phosphorus Level 2.5, Total Bilirubin 0.3, Aspartate Amino Transf (AST/SGOT) 16, Alanine Aminotransferase (ALT/SGPT) 6L, Alkaline Phosphatase 93, C-Reactive Protein, Quantitative 26.2H, Pro-B-Type Natriuretic Peptide 6684H, Total Protein 6.5, Albumin 2.1L, Globulin 4.4, Albumin/Globulin Ratio 0.5L Height (Feet): 5 Height (Inches): 2.00 Weight (Pounds): 101 Objective General Appearance: WD/WN, alert Neck: supple Cardiovascular: normal peripheral pulses, normal rate, regular rhythm Respiratory/Chest: chest wall non-tender, lungs clear, normal breath sounds Abdomen: normal bowel sounds, non tender, soft, no organomegaly Edema: no edema noted Arm (L), no edema noted Arm (R), no edema noted Leg (L), no edema noted Leg (R), no edema noted Pedal (L), no edema noted Pedal (R), no edema noted Generalized Neurologic: alert, responsive, disoriented Nate Beltran MD Dec 28, 2018 16:49
--- NOTE | 2018-12-28 19:13 | NUR ---
HAND-OFF: Report given to Pamela Masterson.
--- NOTE | 2018-12-28 19:30 | NUR ---
NURSE NOTES: RECEIVED PT FROM SANYA YA. PT IS ASLEEP, ON ROOM AIR, NO ACUTE DISTRESS NOTED. PT IS ON BILATERAL SOFT WRIST RESTRAINTS. NO REDNESS NOTED. PULSES PRESENT. CONTACT PRECAUTION IMPLEMENTED. DRESSINGS ON RIGHT THIGH IS INTACT AND DRY. OPTIFOAM NOTED ON SACRAL FOR PROTECTION. IV ON RIGHT FA 22G IS INTACT AND PATENT. BED IS LOCKED AT THE LOWEST POSITION, BED ALARMS ACTIVE, SIDE RAILS UP X3, AND CALL LIGHT IS WITHIN REACH. WILL CONTINUE TO MONITOR.
[2018-12-28 20:00] VITALS: BP 112/58
[2018-12-28] MEDS: Dyna-Hex 2% Top Sol 2oz TOPIC SCH (20:00)
[2018-12-29] VITALS: BP 105/53
[2018-12-29 04:00] VITALS: BP 101/55
--- NOTE | 2018-12-29 04:52 | NUR ---
NURSE NOTES: CHANGED DRESSINGS ON RIGHT HIP AND SACRAL
[2018-12-29] MEDS: HydrALAZINE 25mg tab ORAL SCH (06:00)
[2018-12-29] MEDS: Doxazosin 1mg Tab ORAL SCH (06:00)
--- NOTE | 2018-12-29 07:11 | NUR ---
HAND-OFF: Report given to SANYA ZAVALETA.
--- NOTE | 2018-12-29 07:23 | NUR ---
NURSE NOTES: Received pt from Aleja in bed. Pt is sleeping, on room air. No s/s of distress/pain. Pt is on bilateral soft wrist restraint. No swelling, and pulse is present. IV on R FA 22 g is intact and patent. Permacath on R subclavian intact and patent. Bed is in the lowest, locked, and alarm on. Call light within reach. Will continue to monitor
[2018-12-29 08:00] VITALS: BP 106/54
--- NOTE | 2018-12-29 08:02 | General Progress Note ---
Assessment/Plan Problem List: (1) Diabetes mellitus ICD Codes: E11.9 - Type 2 diabetes mellitus without complications SNOMED: 96800865 (2) Anemia due to acute blood loss ICD Codes: D62 - Acute posthemorrhagic anemia SNOMED: 502164628 (3) Failure to thrive (0-17) ICD Codes: R62.51 - Failure to thrive (0-17) SNOMED: 834481130 (4) Abscess of right hip ICD Codes: L02.415 - Cutaneous abscess of right lower limb SNOMED: 012847 (5) Renal failure (ARF), acute on chronic ICD Codes: N17.9 - Acute kidney failure, unspecified; N18.9 - Chronic kidney disease, unspecified SNOMED: 635629170 (6) ESRD (end stage renal disease) ICD Codes: N18.6 - End stage renal disease SNOMED: 47208140 (7) Anemia in CKD (chronic kidney disease) ICD Codes: N18.9 - Chronic kidney disease, unspecified; D63.1 - Anemia in chronic kidney disease SNOMED: 562344043 (8) Hypertensive kidney disease ICD Codes: I12.9 - Hypertensive chronic kidney disease with stage 1 through stage 4 chronic kidney disease, or unspecified chronic kidney disease SNOMED: 80994711 Status: stable Assessment/Plan: HD per renal anxiolytics wound care per gen surgery skin care iv abx per id echo per id dc planning once cleared by id Subjective ROS Limited/Unobtainable: No Constitutional: Reports: malaise, weakness HEENT: Reports: no symptoms Cardiovascular: Reports: no symptoms Respiratory: Reports: no symptoms Gastrointestinal/Abdominal: Reports: no symptoms Genitourinary: Reports: no symptoms Neurologic/Psychiatric: Reports: anxiety Endocrine: Reports: no symptoms Hematologic/Lymphatic: Reports: anemia Allergies: Coded Allergies: No Known Allergies (Unverified , 11/12/18) All Systems: reviewed and negative except above Subjective fevers better. decreased itching. intermittent agitated. currently restrained. no fevers Objective Last 24 Hour Vital Signs Date Time Temp Pulse Resp B/P (MAP) Pulse Ox O2 Delivery O2 Flow Rate FiO2 12/29/18 06:00 101/55 12/29/18 04:00 98.0 66 18 101/55 (70) 94 66 12/29/18 00:00 98.0 62 18 105/53 (70) 92 62 12/28/18 22:00 112/58 12/28/18 21:00 Room Air 12/28/18 21:00 72 112/58 12/28/18 20:00 98.0 65 24 112/58 (76) 95 65 12/28/18 16:00 97.7 68 19 106/51 (69) 95 68 12/28/18 13:20 100/57 12/28/18 12:00 99.8 77 19 100/57 (71) 95 77 12/28/18 09:00 Room Air 12/28/18 08:26 77 160/58 12/28/18 08:26 77 160/58 Intake and Output 12/28/18 12/29/18 19:00 07:00 Intake Total 393.000 ml Balance 393.000 ml Intake Oral 118 ml IV Total 275.000 ml Height (Feet): 5 Height (Inches): 2.00 Weight (Pounds): 102 Objective General Appearance: WD/WN, alert Neck: supple Cardiovascular: normal peripheral pulses, normal rate, regular rhythm Respiratory/Chest: chest wall non-tender, lungs clear, normal breath sounds Abdomen: normal bowel sounds, non tender, soft, no organomegaly Edema: no edema noted Arm (L), no edema noted Arm (R), no edema noted Leg (L), no edema noted Leg (R), no edema noted Pedal (L), no edema noted Pedal (R), no edema noted Generalized Neurologic: alert, responsive, disoriented Nate Beltran MD Dec 29, 2018 08:02
[2018-12-29] MEDS: Megace 400mg/10ml Susp ORAL SCH ×2 (08:19→17:56)
[2018-12-29] MEDS: Renvela 800mg Pkt ORAL SCH ×4 (08:19→17:56)
[2018-12-29] MEDS: OLANZapine 2.5mg tab ORAL SCH ×3 (08:20→17:56)
[2018-12-29] MEDS: Heparin 5000 units/ml inj SUBQ SCH ×2 (08:21→20:10)
--- NOTE | 2018-12-29 10:32 | NUR ---
CASE MANAGEMENT:REVIEW 12/29/18 SI: ACUTE RENAL FAILURE *NEW TO DIALYSIS 98.2 60 18 106/54 94% ON RA IS: CLONIDINE PATCH QWEEK NORVASC PO QD COREG PO Q12 HEPARIN SQ Q12 REMERON PO QHS MEGACE PO BID CARDURA PO Q8HR HYDRALAZINE PO Q8HRS : TELEMETRY STATUS DCP: FROM [facility] PLAN: HAS BEEN REFERRED TO [facility] FOR [facility]PATIENT [facility]YS[facility]
--- NOTE | 2018-12-29 10:37 | NUR ---
DISCHARGE PLANNING CALLED [facility] (T: [phone]) AND SPOKE WITH IRINEO WHO STATED HE WOULD CALL THIS VOCATIONAL CASE MANAGER BACK WITH CHAIR TIME FAXED CLINICALS TO [facility] T:[phone] F: [phone] Addendum: 12/29/18 at 1144 by ADITI VALLADARES LVN LVN RECEIVED CALL BACK FROM DANNY AT [facility] STATING THEY CANNOT ACCEPT PATIENT BACK BECAUSE THE BED WAS GIVEN AWAY AND SHE NOW NEEDS DIALYSIS MENTIONED ABOVE TO DR MCARTHUR FAXED CLINICALS TO [facility] T: [phone] RECEIVED CALL BACK FROM IRINEO AT [facility] ASSIGNED CHAIR TIME IS 1330 PM
--- NOTE | 2018-12-29 11:37 | Infectious Diseases Prog Note ---
Assessment/Plan Assessment/Plan antibiotics : vancomycin iv A 1. staph aureus sepsis 2. renal failure on dialysis 3. fungal UTI 4. leucocytosis improving 5. hypertension P 1. continue iv vancomycin 2. 2 d echo r/o endocarditis 3. consider removal of right subclavian catheter 4. will follow up cultures Subjective Constitutional: Denies: fever Respiratory: Denies: shortness of breath, dry cough Gastrointestinal/Abdominal: Denies: nausea, vomiting, diarrhea Musculoskeletal: Denies: pain Allergies: Coded Allergies: No Known Allergies (Unverified , 11/12/18) Objective Vital Signs Last 24 Hour Vital Signs Date Time Temp Pulse Resp B/P (MAP) Pulse Ox O2 Delivery O2 Flow Rate FiO2 12/29/18 09:00 Room Air 12/29/18 08:14 60 106/54 12/29/18 08:14 60 106/54 12/29/18 08:00 98.2 60 18 106/54 (71) 94 12/29/18 06:00 101/55 12/29/18 04:00 98.0 66 18 101/55 (70) 94 66 12/29/18 00:00 98.0 62 18 105/53 (70) 92 62 12/28/18 22:00 112/58 12/28/18 21:00 Room Air 12/28/18 21:00 72 112/58 12/28/18 20:00 98.0 65 24 112/58 (76) 95 65 12/28/18 16:00 97.7 68 19 106/51 (69) 95 68 12/28/18 13:20 100/57 12/28/18 12:00 99.8 77 19 100/57 (71) 95 77 Height (Feet): 5 Height (Inches): 2.00 Weight (Pounds): 102 Respiratory/Chest: lungs clear Cardiovascular: normal rate, regular rhythm, no gallop/murmur Abdomen: soft, non tender Extremities: no edema Skin: other - right subclavian catheter Current Medications Medications (Trade) Dose Ordered Sig/Javier Route PRN Reason Start Time Stop Time Status Last Admin Dose Admin Acetaminophen (Tylenol) 650 mg Q4H PRN ORAL Mild Pain/Temp > 100.5 12/25/18 16:00 01/24/19 15:59 12/25/18 17:09 Amlodipine Besylate (Norvasc) 10 mg DAILY ORAL 12/26/18 09:00 01/18/19 08:59 12/28/18 08:26 Carvedilol (Coreg) 3.125 mg EVERY 12 HOURS ORAL 12/25/18 21:00 01/17/19 20:59 12/28/18 08:26 Chlorhexidine Gluconate (Nae-Hex 2%) 1 applic DAILY@2000 TOPIC 12/25/18 20:00 01/22/19 19:59 12/27/18 22:36 Clonidine HCl (Catapres TTS-1) 1 patch QWEEK TDERMAL 12/27/18 09:00 01/26/19 08:59 12/27/18 10:00 Diphenhydramine HCl (Benadryl) 50 mg Q4H PRN ORAL Itching 12/25/18 13:00 01/24/19 12:59 12/26/18 10:47 Doxazosin Mesylate (Cardura) 1 mg Q8HR ORAL 12/25/18 14:00 01/17/19 17:59 12/28/18 06:09 Epoetin Thomas (Epoetin Thomas(ESRD on dialysis)) 10,000 unit THU-THU-THU SUBQ 12/27/18 21:00 01/21/19 20:59 12/27/18 22:40 Haloperidol Lactate (Haldol) 5 mg Q6H PRN IM Agitation 12/25/18 13:30 01/21/19 13:29 Heparin Sodium (Porcine) (Heparin 5000 units/ml) 5,000 units EVERY 12 HOURS SUBQ 12/25/18 21:00 01/18/19 14:14 12/29/18 08:21 Hydralazine HCl (Apresoline) 25 mg Q4H PRN ORAL SBP > 160mmHg 12/25/18 13:30 01/17/19 13:29 12/26/18 10:48 Hydralazine HCl (Apresoline) 25 mg Q8HR ORAL 12/25/18 14:00 01/19/19 13:59 12/28/18 06:09 Lactulose (Cephulac) 30 gm TIDPRN PRN ORAL Constipation 12/25/18 13:30 01/24/19 13:29 Lansoprazole (Prevacid) 30 mg DAILY ORAL 12/26/18 09:00 01/25/19 08:59 12/29/18 08:19 Levothyroxine Sodium (Synthroid) 50 mcg DAILY@0630 ORAL 12/26/18 06:30 01/18/19 06:29 12/29/18 06:25 Loperamide HCl (Imodium) 2 mg Q6H PRN ORAL Diarrhea 12/25/18 13:30 01/17/19 13:29 Megestrol Acetate (Megace) 400 mg TWICE A DAY ORAL 12/25/18 18:00 01/19/19 17:59 12/29/18 08:19 Mirtazapine (Remeron) 15 mg BEDTIME ORAL 12/25/18 21:00 01/17/19 20:59 12/28/18 22:12 Olanzapine (ZyPREXA) 2.5 mg TID ORAL 12/25/18 13:00 01/20/19 15:06 12/29/18 08:20 Sevelamer Carbonate (Renvela) 1,600 mg THREE TIMES A DAY ORAL 12/25/18 13:00 01/22/19 17:59 12/29/18 08:19 Vancomycin HCl (Vanco rx to dose) 1 ea DAILY PRN MISC Per rx protocol 12/26/18 07:00 01/25/19 06:59 Melissa Solares MD Dec 29, 2018 11:37
[2018-12-29 12:00] VITALS: BP 106/54
--- NOTE | 2018-12-29 12:52 | Nephrology Progress Note ---
Assessment/Plan Problem List: (1) ESRD (end stage renal disease) (2) Diabetes mellitus (3) Failure to thrive (0-17) (4) Anemia in CKD (chronic kidney disease) (5) Hypertensive kidney disease (6) Malnutrition (7) Staphylococcus aureus bacteremia Assessment Renal failure: - Chronic: Due to underlying ?HTN / DM ... - s/p mild Urinary Retention in ANJEL HyperGlycemia / DM / Proteinuria Anemia s/p Right hip abcess UTI . Plan Plan: adjust BP meds- On Vanco one dose Venofer On Epogen labs in am Renal diet Permacath 12/21 done , it had to be done under anesthesia Keep BP and BS in check HEP Panel ordered per orders start Megace HD next 12/29 med surg Subjective ROS Limited/Unobtainable: No Constitutional: Reports: malaise, weakness Objective Objective Last 24 Hour Vital Signs Date Time Temp Pulse Resp B/P (MAP) Pulse Ox O2 Delivery O2 Flow Rate FiO2 12/29/18 12:00 97.8 59 18 106/54 (71) 94 12/29/18 09:00 Room Air 12/29/18 08:14 60 106/54 12/29/18 08:14 60 106/54 12/29/18 08:00 98.2 60 18 106/54 (71) 94 12/29/18 06:00 101/55 12/29/18 04:00 98.0 66 18 101/55 (70) 94 66 12/29/18 00:00 98.0 62 18 105/53 (70) 92 62 12/28/18 22:00 112/58 12/28/18 21:00 Room Air 12/28/18 21:00 72 112/58 12/28/18 20:00 98.0 65 24 112/58 (76) 95 65 12/28/18 16:00 97.7 68 19 106/51 (69) 95 68 12/28/18 13:20 100/57 Intake and Output 12/28/18 12/29/18 19:00 07:00 Intake Total 393.000 ml Balance 393.000 ml Intake Oral 118 ml IV Total 275.000 ml Height (Feet): 5 Height (Inches): 2.00 Weight (Pounds): 102 General Appearance: no apparent distress Cardiovascular: bradycardia Respiratory/Chest: decreased breath sounds Abdomen: soft Objective no change Fouladian,William MD Dec 29, 2018 12:52
[2018-12-29] MEDS: HydrALAZINE 10mg Tab ORAL SCH ×2 (13:12→22:00)
[2018-12-29 16:00] VITALS: BP 117/65
--- NOTE | 2018-12-29 16:09 | NUR ---
DISCHARGE PLANNING [facility] HAS DECLINED TO ACCEPT PATIENT BACK TO THEIR FACILITY REFERRED TO [facility] ~ THEY DECLINED TO ACCEPT [facility]FERRED TO: [facility] T:[phone] [facility]: [phone] [facility] T: [phone] [facility] T: [phone] WAITING FOR ACCEPTANCE OR REJECTION
--- NOTE | 2018-12-29 16:28 | Surgery Progress Note ---
Surgery Progress Note Subjective Symptoms: improved, pain absent, tolerating diet, passing flatus, BM Objective Last 24 Hour Vital Signs Date Time Temp Pulse Resp B/P (MAP) Pulse Ox O2 Delivery O2 Flow Rate FiO2 12/29/18 13:12 106/54 12/29/18 12:00 97.8 59 18 106/54 (71) 94 12/29/18 09:00 Room Air 12/29/18 08:14 60 106/54 12/29/18 08:14 60 106/54 12/29/18 08:00 98.2 60 18 106/54 (71) 94 12/29/18 06:00 101/55 12/29/18 04:00 98.0 66 18 101/55 (70) 94 66 12/29/18 00:00 98.0 62 18 105/53 (70) 92 62 12/28/18 22:00 112/58 12/28/18 21:00 Room Air 12/28/18 21:00 72 112/58 12/28/18 20:00 98.0 65 24 112/58 (76) 95 65 I&O Intake and Output 12/28/18 12/29/18 19:00 07:00 Intake Total 393.000 ml Balance 393.000 ml Intake Oral 118 ml IV Total 275.000 ml Dressing: saturated Wound: clean Cardiovascular: RSR Respiratory: clear Abdomen: soft, flat, non-tender, present bowel sounds, other, non-distended Extremities: no cyanosis Plan Problems: (1) Urinary retention (2) Diabetes mellitus (3) Failure to thrive (0-17) Assessment & Plan: Will continue with nutritional optimization while in hospital (4) Anemia due to acute blood loss (5) Abscess of right hip Assessment & Plan: Abscess of right hip s/p I&D and debridement. was very large concerning wound that requiring prolonged care and still continues to require care as wound is open. wound evaluated at bedside and now much improved. a significant portion of wound has closed and healed. open debridement area now much smaller and with granulation tissue. no signs of active infection. no purulent drainage, remainder of wound reapproximating well. will continue with wound management until completely healed. apply hydrogel infused gauze to right hip open wound daily, cover with foam dressing, change daily. wash wound with dressing changes heel protectors turn q2h off load pressure will monitor while in hospital and care for patient and wounds thank you (6) Renal failure (ARF), acute on chronic (7) ESRD (end stage renal disease) Assessment & Plan: improving with HD cont as per nephro (8) Anemia in CKD (chronic kidney disease) (9) Hypertensive kidney disease (10) Malnutrition Assessment & Plan: DAILY ESTIMATED NEEDS: Needs based on Wounds, DM, ESRD + possible HD/ 39kg 35-40 kcals/kg 9454-9650 total kcals (WITHOUT HD: 0.8-1.1) (WITH HD: 1.25-1.8) g protein/kg (WITHOUT HD: 31-43) (WITH HD: 49-70) g total protein 20-25 mL/kg 780-975 total fluid mLs NUTRITION DIAGNOSIS: * Increased kcal and protein needs r/t wound healing, underweight status, HD needs as evidenced by s/p recent I&D R hip abscess with excisional debridement, pt is underweight per guidelines, generalized moderate wasting, currently w/ an order for PermCath for HD initiation. * Swallowing and chewing difficulty R/T dysphagia, edentulous status as evidenced by pt on pureed moist texture diet. CURRENT DIET:Renal, pureed moist PO DIET RECOMMENDATIONS: RENAL DIET (texture per SHEET MILL SUPERVISOR) ADDITIONAL RECOMMENDATIONS: 1) Calibrated bed scale wt for accurate CBW 2) Monitor lytes daily- phos elev 3) WOUND CARE: add Nephrovite x 1, Balta 1pkt BID 4) Monitor for HD initiation- w/ an order for PermCath 5) SHEET MILL SUPERVISOR evaluation for appropriate texture 6) Monitor BGs closely, need for NISS- h/o DM Camiol James Dec 29, 2018 16:28
--- NOTE | 2018-12-29 19:30 | NUR ---
NURSE NOTES: Received report from SANYA Cai. Patient awake, confused, and restless. Patient is able to make eye contact and nod/shake her head to confirm her needs. Patient is breathing unlabored and evenly without distress, discomfort, or SOB noted at this time. No pain noted at this time. Patient noted with bilateral wrist soft restraints. Both wrists have pulse present, capillary refill within 3 seconds, warm to touch, and able to move within the restraints. IV site on the right forearm noted intact and dry with kerlix wrapped around for patient safety. Permacath noted on right subclavian with intact dressing. Bed placed at the lowest with alarm, brakes, and side rails up x 3 for safety measures. Call light placed within reach. Will continue to monitor and provide care as ordered.
--- NOTE | 2018-12-29 19:30 | NUR ---
HAND-OFF: Report given to SANYA Pearl.
[2018-12-29 20:00] VITALS: BP 114/60
[2018-12-29] MEDS: Epoetin Alfa-EPBX(ESRD on dialysis)10,000 unit/ml vial SUBQ SCH (20:09)
[2018-12-29] MEDS: Dyna-Hex 2% Top Sol 2oz TOPIC SCH (20:11)
[2018-12-30] VITALS (7 sets, daily range): BP systolic 99–142; BP diastolic 47–93
--- NOTE | 2018-12-30 03:44 | NUR ---
NURSE NOTES: Provided dressing change on the right trochanter as ordered. Placed optifoam on the left trochanter prophylactically. Changed sacral dressing because it was soiled. Patient tolerated the procedure well. Will continue to monitor and provide care ordered.
[2018-12-30] MEDS: HydrALAZINE 10mg Tab ORAL SCH ×3 (05:40→22:12)
[2018-12-30 06:23] LABS: BASOPHILS % (AUTO) 0.4 % (0.0-2.0); EOSINOPHILS % (AUTO) 0.2 % (0.0-3.0); HEMATOCRIT 28.7 % (37.0-47.0); HEMOGLOBIN 8.9 G/DL (12.0-16.0); LYMPHOCYTES % (AUTO) 42.9 % (20.0-45.0); MEAN CORPUSCULAR VOLUME 94 FL (80-99); MONOCYTES % (AUTO) 4.6 % (1.0-10.0); NEUTROPHILS % (AUTO) 51.9 % (45.0-75.0); PLATELET COUNT 251 K/UL (150-450); RED BLOOD COUNT 3.05 M/UL (4.20-5.40); WHITE BLOOD COUNT 10.8 K/UL (4.8-10.8)
[2018-12-30 07:11] LABS: ALANINE AMINOTRANSFERASE 16 U/L (12-78); ALBUMIN/GLOBULIN RATIO 0.4 (1.0-2.7); ALKALINE PHOSPHATASE 183 U/L (46-116); ANION GAP 8 mmol/L (5-15); ASPARTATE AMINO TRANSFERASE 30 U/L (15-37); BILIRUBIN,TOTAL 0.4 MG/DL (0.2-1.0); BLOOD UREA NITROGEN 41 mg/dL (7-18); CALCIUM 8.9 MG/DL (8.5-10.1); CARBON DIOXIDE 32 MMOL/L (21-32); CHLORIDE 98 MMOL/L (98-107); CREATININE 3.8 MG/DL (0.55-1.30); POTASSIUM 3.7 MMOL/L (3.5-5.1); SODIUM 138 MMOL/L (136-145)
[2018-12-30 07:17] LABS: PHOSPHORUS 3.4 MG/DL (2.5-4.9)
--- NOTE | 2018-12-30 07:29 | NUR ---
HAND-OFF: Report given to Shashank Faye RN. Patient in stable condition.
--- NOTE | 2018-12-30 08:24 | General Progress Note ---
Assessment/Plan Problem List: (1) Diabetes mellitus ICD Codes: E11.9 - Type 2 diabetes mellitus without complications SNOMED: 45699901 (2) Anemia due to acute blood loss ICD Codes: D62 - Acute posthemorrhagic anemia SNOMED: 053161162 (3) Failure to thrive (0-17) ICD Codes: R62.51 - Failure to thrive (0-17) SNOMED: 091824135 (4) Abscess of right hip ICD Codes: L02.415 - Cutaneous abscess of right lower limb SNOMED: 704890 (5) Renal failure (ARF), acute on chronic ICD Codes: N17.9 - Acute kidney failure, unspecified; N18.9 - Chronic kidney disease, unspecified SNOMED: 675315381 (6) ESRD (end stage renal disease) ICD Codes: N18.6 - End stage renal disease SNOMED: 22375140 (7) Anemia in CKD (chronic kidney disease) ICD Codes: N18.9 - Chronic kidney disease, unspecified; D63.1 - Anemia in chronic kidney disease SNOMED: 244340853 (8) Hypertensive kidney disease ICD Codes: I12.9 - Hypertensive chronic kidney disease with stage 1 through stage 4 chronic kidney disease, or unspecified chronic kidney disease SNOMED: 01657718 Status: stable Assessment/Plan: HD per renal anxiolytics wound care per gen surgery skin care iv abx per id echo per id dc planning once cleared by id Subjective ROS Limited/Unobtainable: No Constitutional: Reports: malaise, weakness HEENT: Reports: no symptoms Cardiovascular: Reports: no symptoms Respiratory: Reports: no symptoms Gastrointestinal/Abdominal: Reports: no symptoms Genitourinary: Reports: no symptoms Neurologic/Psychiatric: Reports: anxiety, emotional problems Endocrine: Reports: no symptoms Hematologic/Lymphatic: Reports: anemia Allergies: Coded Allergies: No Known Allergies (Unverified , 11/12/18) All Systems: reviewed and negative except above Subjective no events. intermittent agitation. eating well. mostly cooperative with care. in restraints. - pull at lines Objective Last 24 Hour Vital Signs Date Time Temp Pulse Resp B/P (MAP) Pulse Ox O2 Delivery O2 Flow Rate FiO2 12/30/18 05:40 107/55 12/30/18 04:00 99.1 67 20 107/52 (70) 95 12/30/18 00:00 97.4 68 20 128/65 (86) 95 12/29/18 22:00 119/60 12/29/18 21:00 Room Air 12/29/18 21:00 69 114/60 12/29/18 20:00 98.8 69 20 114/60 (78) 96 12/29/18 16:00 98.0 71 18 117/65 (82) 94 12/29/18 13:12 106/54 12/29/18 12:00 97.8 59 18 106/54 (71) 94 12/29/18 09:00 Room Air Intake and Output 12/29/18 12/30/18 19:00 07:00 Intake Total 120 ml Balance 120 ml Intake Oral 120 ml # Voids 3 Laboratory Tests 12/30/18 05:12: White Blood Count 10.8, Red Blood Count 3.05L, Hemoglobin 8.9L, Hematocrit 28.7L , Mean Corpuscular Volume 94, Mean Corpuscular Hemoglobin 29.1, Mean Corpuscular Hemoglobin Concent 30.9L, Red Cell Distribution Width 17.0H, Platelet Count 251, Mean Platelet Volume 6.7, Neutrophils (%) (Auto) 51.9, Lymphocytes (%) (Auto) 42.9, Monocytes (%) (Auto) 4.6, Eosinophils (%) (Auto) 0.2, Basophils (%) (Auto) 0.4, Sodium Level 138, Potassium Level 3.7, Chloride Level 98, Carbon Dioxide Level 32, Anion Gap 8, Blood Urea Nitrogen 41H, Creatinine 3.8H, Estimat Glomerular Filtration Rate , Glucose Level 234H, Calcium Level 8.9, Phosphorus Level 3.4, Magnesium Level 2.0, Total Bilirubin 0.4, Aspartate Amino Transf (AST/SGOT) 30, Alanine Aminotransferase (ALT/SGPT) 16, Alkaline Phosphatase 183H, C-Reactive Protein, Quantitative 19.1H, Pro-B- Type Natriuretic Peptide 4565H, Total Protein 6.6, Albumin 2.0L, Globulin 4.6, Albumin/Globulin Ratio 0.4L, Random Vancomycin Level 21.8 Height (Feet): 5 Height (Inches): 2.00 Weight (Pounds): 102 Objective General Appearance: WD/WN, alert Neck: supple Cardiovascular: normal peripheral pulses, normal rate, regular rhythm Respiratory/Chest: chest wall non-tender, lungs clear, normal breath sounds Abdomen: normal bowel sounds, non tender, soft, no organomegaly Edema: no edema noted Arm (L), no edema noted Arm (R), no edema noted Leg (L), no edema noted Leg (R), no edema noted Pedal (L), no edema noted Pedal (R), no edema noted Generalized Neurologic: alert, responsive, disoriented Nate Beltran MD Dec 30, 2018 08:24
[2018-12-30] MEDS: OLANZapine 2.5mg tab ORAL SCH ×3 (09:12→17:12)
[2018-12-30] MEDS: Megace 400mg/10ml Susp ORAL SCH ×2 (09:12→17:12)
[2018-12-30] MEDS: Renvela 800mg Pkt ORAL SCH ×3 (09:12→17:12)
[2018-12-30] MEDS: Heparin 5000 units/ml inj SUBQ SCH ×2 (09:22→21:01)
--- NOTE | 2018-12-30 10:52 | NUR ---
NURSE NOTES: PT AXOX1, NONVERBAL BUT HAS GARBLED SPEECH. PT ABLE TO NOD YES OR NO TO SIMPLE QUESTIONS. IN NO APPARENT DISTRESS AT THIS TIME. BILATERAL SOFT WRIST RESTRAINTS ON PT. NO SWELLING OR SKIN BREAKDOWN NOTED ON BILATERAL WRISTS. PT CALM AT THIS TIME. PT IN HIGH-JIMÉNEZ'S POSITION WITH HOB ELEVATED FOR ASPIRATION PRECAUTIONS. BED IN LOWEST POSITION WITH BEDSIDE RAILS X3 RAISED. CALL LIGHT WITHIN REACH.
--- NOTE | 2018-12-30 11:38 | NUR ---
DISCHARGE PLAN WAITING FOR OFFICIAL DISCHARGE ORDER FROM DR LYUBOV SANCHEZ REFUSED TO ACCEPT PATIENT BACK [facility] DECLINED TO ACCEPT ACCEPTED AT [facility] ROOM 12B OUTPATIENT DIALYSIS RENAL [facility] T-TH-SAT 1:30 PM [facility] WILL ARRANGE TRANSPORTATION TO AND FROM DIALYSIS 9CONFORMED WITH ROBIN)
--- NOTE | 2018-12-30 12:44 | Infectious Diseases Prog Note ---
Assessment/Plan Assessment/Plan A 1. staph aureus sepsis ( MSSA) 2. renal failure on dialysis 3. fungal UTI 4. leucocytosis improving 5. hypertension P 1. continue iv vancomycin until January 4on HD days 2, Case was D/W Dr toure Subjective ROS Limited/Unobtainable: Yes Neurologic: Reports: confusion, other - on restraint Allergies: Coded Allergies: No Known Allergies (Unverified , 11/12/18) Objective Vital Signs Last 24 Hour Vital Signs Date Time Temp Pulse Resp B/P (MAP) Pulse Ox O2 Delivery O2 Flow Rate FiO2 12/30/18 12:00 99.9 72 18 112/58 (76) 93 12/30/18 09:00 65 99/47 12/30/18 09:00 65 99/47 12/30/18 09:00 Room Air 12/30/18 08:00 97.5 65 17 99/47 (64) 97 12/30/18 05:40 107/55 12/30/18 04:00 99.1 67 20 107/52 (70) 95 12/30/18 00:00 97.4 68 20 128/65 (86) 95 12/29/18 22:00 119/60 12/29/18 21:00 Room Air 12/29/18 21:00 69 114/60 12/29/18 20:00 98.8 69 20 114/60 (78) 96 12/29/18 16:00 98.0 71 18 117/65 (82) 94 12/29/18 13:12 106/54 Height (Feet): 5 Height (Inches): 2.00 Weight (Pounds): 102 General Appearance: no acute distress HEENT: mucous membranes moist Respiratory/Chest: lungs clear Cardiovascular: normal rate, other - permacath Abdomen: soft, non tender Extremities: no edema Neurologic/Psychiatric: alert, disoriented Musculoskeletal: atrophy Laboratory Tests Test 12/30/18 05:12 White Blood Count 10.8 K/UL (4.8-10.8) Red Blood Count 3.05 M/UL (4.20-5.40) L Hemoglobin 8.9 G/DL (12.0-16.0) L Hematocrit 28.7 % (37.0-47.0) L Mean Corpuscular Volume 94 FL (80-99) Mean Corpuscular Hemoglobin 29.1 PG (27.0-31.0) Mean Corpuscular Hemoglobin Concent 30.9 G/DL (32.0-36.0) L Red Cell Distribution Width 17.0 % (11.6-14.8) H Platelet Count 251 K/UL (150-450) Mean Platelet Volume 6.7 FL (6.5-10.1) Neutrophils (%) (Auto) 51.9 % (45.0-75.0) Lymphocytes (%) (Auto) 42.9 % (20.0-45.0) Monocytes (%) (Auto) 4.6 % (1.0-10.0) Eosinophils (%) (Auto) 0.2 % (0.0-3.0) Basophils (%) (Auto) 0.4 % (0.0-2.0) Sodium Level 138 MMOL/L (136-145) Potassium Level 3.7 MMOL/L (3.5-5.1) Chloride Level 98 MMOL/L (98-107) Carbon Dioxide Level 32 MMOL/L (21-32) Anion Gap 8 mmol/L (5-15) Blood Urea Nitrogen 41 mg/dL (7-18) H Creatinine 3.8 MG/DL (0.55-1.30) H Estimat Glomerular Filtration Rate mL/min (>60) Glucose Level 234 MG/DL (74-106) H Calcium Level 8.9 MG/DL (8.5-10.1) Phosphorus Level 3.4 MG/DL (2.5-4.9) Magnesium Level 2.0 MG/DL (1.8-2.4) Total Bilirubin 0.4 MG/DL (0.2-1.0) Aspartate Amino Transf (AST/SGOT) 30 U/L (15-37) Alanine Aminotransferase (ALT/SGPT) 16 U/L (12-78) Alkaline Phosphatase 183 U/L (46-116) H C-Reactive Protein, Quantitative 19.1 mg/dL (0.00-0.90) H Pro-B-Type Natriuretic Peptide 4565 pg/mL (0-125) H Total Protein 6.6 G/DL (6.4-8.2) Albumin 2.0 G/DL (3.4-5.0) L Globulin 4.6 g/dL Albumin/Globulin Ratio 0.4 (1.0-2.7) L Random Vancomycin Level 21.8 ug/mL Current Medications Medications (Trade) Dose Ordered Sig/Javier Route PRN Reason Start Time Stop Time Status Last Admin Dose Admin Acetaminophen (Tylenol) 650 mg Q4H PRN ORAL Mild Pain/Temp > 100.5 12/25/18 16:00 01/24/19 15:59 12/25/18 17:09 Amlodipine Besylate (Norvasc) 5 mg BID ORAL 12/30/18 09:00 01/18/19 08:59 Carvedilol (Coreg) 3.125 mg EVERY 12 HOURS ORAL 12/25/18 21:00 01/17/19 20:59 12/28/18 08:26 Chlorhexidine Gluconate (Nae-Hex 2%) 1 applic DAILY@2000 TOPIC 12/25/18 20:00 01/22/19 19:59 12/29/18 20:11 Clonidine HCl (Catapres TTS-1) 1 patch QWEEK TDERMAL 12/27/18 09:00 01/26/19 08:59 12/27/18 10:00 Diphenhydramine HCl (Benadryl) 50 mg Q4H PRN ORAL Itching 12/25/18 13:00 01/24/19 12:59 12/26/18 10:47 Epoetin Thomas (Epoetin Thomas(ESRD on dialysis)) 10,000 unit THU-THU-THU SUBQ 12/27/18 21:00 01/21/19 20:59 12/29/18 20:09 Haloperidol Lactate (Haldol) 5 mg Q6H PRN IM Agitation 12/25/18 13:30 01/21/19 13:29 Heparin Sodium (Porcine) (Heparin 5000 units/ml) 5,000 units EVERY 12 HOURS SUBQ 12/25/18 21:00 01/18/19 14:14 12/30/18 09:22 Hydralazine HCl (Apresoline) 10 mg Q8HR ORAL 12/29/18 14:00 01/19/19 13:59 Hydralazine HCl (Apresoline) 25 mg Q4H PRN ORAL SBP > 160mmHg 12/25/18 13:30 01/17/19 13:29 12/26/18 10:48 Lactulose (Cephulac) 30 gm TIDPRN PRN ORAL Constipation 12/25/18 13:30 01/24/19 13:29 Levothyroxine Sodium (Synthroid) 50 mcg DAILY@0630 ORAL 12/26/18 06:30 01/18/19 06:29 12/30/18 06:08 Loperamide HCl (Imodium) 2 mg Q6H PRN ORAL Diarrhea 12/25/18 13:30 01/17/19 13:29 Megestrol Acetate (Megace) 400 mg TWICE A DAY ORAL 12/25/18 18:00 01/19/19 17:59 12/30/18 09:12 Mirtazapine (Remeron) 15 mg BEDTIME ORAL 12/25/18 21:00 01/17/19 20:59 12/29/18 20:11 Olanzapine (ZyPREXA) 2.5 mg TID ORAL 12/25/18 13:00 01/20/19 15:06 12/30/18 09:12 Pantoprazole (Protonix) 40 mg DAILY ORAL 12/30/18 09:00 01/29/19 08:59 12/30/18 09:12 Sevelamer Carbonate (Renvela) 800 mg THREE TIMES A DAY ORAL 12/29/18 13:00 01/22/19 17:59 12/30/18 09:12 Vancomycin HCl (Vanco rx to dose) 1 ea DAILY PRN MISC Per rx protocol 12/26/18 07:00 01/25/19 06:59 Vancomycin HCl 750 mg/Sodium Chloride 275 ml @ 183.333 mls/hr ONCE ONCE IVPB 12/31/18 09:00 12/31/18 10:29 Warren Parks MD Dec 30, 2018 12:44
--- NOTE | 2018-12-30 15:25 | Nephrology Progress Note ---
Assessment/Plan Problem List: (1) ESRD (end stage renal disease) (2) Diabetes mellitus (3) Failure to thrive (0-17) (4) Anemia in CKD (chronic kidney disease) (5) Hypertensive kidney disease (6) Malnutrition (7) Staphylococcus aureus bacteremia Assessment Renal failure: - Chronic: Due to underlying ?HTN / DM ... - s/p mild Urinary Retention in ANJEL HyperGlycemia / DM / Proteinuria Anemia s/p Right hip abcess UTI . Plan Plan: adjust BP meds- On Vanco one dose Venofer On Epogen labs in am Renal diet Permacath 12/21 done , it had to be done under anesthesia Keep BP and BS in check HEP Panel ordered per orders start Megace HD next 12/31 med surg Subjective ROS Limited/Unobtainable: No Constitutional: Reports: malaise, weakness Objective Objective Last 24 Hour Vital Signs Date Time Temp Pulse Resp B/P (MAP) Pulse Ox O2 Delivery O2 Flow Rate FiO2 12/30/18 13:26 112/58 12/30/18 12:00 99.9 72 18 112/58 (76) 93 12/30/18 09:00 65 99/47 12/30/18 09:00 65 99/47 12/30/18 09:00 Room Air 12/30/18 08:00 97.5 65 17 99/47 (64) 97 12/30/18 05:40 107/55 12/30/18 04:00 99.1 67 20 107/52 (70) 95 12/30/18 00:00 97.4 68 20 128/65 (86) 95 12/29/18 22:00 119/60 12/29/18 21:00 Room Air 12/29/18 21:00 69 114/60 12/29/18 20:00 98.8 69 20 114/60 (78) 96 12/29/18 16:00 98.0 71 18 117/65 (82) 94 Intake and Output 12/29/18 12/30/18 19:00 07:00 Intake Total 120 ml Balance 120 ml Intake Oral 120 ml # Voids 3 Laboratory Tests 12/30/18 05:12: White Blood Count 10.8, Red Blood Count 3.05L, Hemoglobin 8.9L, Hematocrit 28.7L , Mean Corpuscular Volume 94, Mean Corpuscular Hemoglobin 29.1, Mean Corpuscular Hemoglobin Concent 30.9L, Red Cell Distribution Width 17.0H, Platelet Count 251, Mean Platelet Volume 6.7, Neutrophils (%) (Auto) 51.9, Lymphocytes (%) (Auto) 42.9, Monocytes (%) (Auto) 4.6, Eosinophils (%) (Auto) 0.2, Basophils (%) (Auto) 0.4, Sodium Level 138, Potassium Level 3.7, Chloride Level 98, Carbon Dioxide Level 32, Anion Gap 8, Blood Urea Nitrogen 41H, Creatinine 3.8H, Estimat Glomerular Filtration Rate , Glucose Level 234H, Calcium Level 8.9, Phosphorus Level 3.4, Magnesium Level 2.0, Total Bilirubin 0.4, Aspartate Amino Transf (AST/SGOT) 30, Alanine Aminotransferase (ALT/SGPT) 16, Alkaline Phosphatase 183H, C-Reactive Protein, Quantitative 19.1H, Pro-B- Type Natriuretic Peptide 4565H, Total Protein 6.6, Albumin 2.0L, Globulin 4.6, Albumin/Globulin Ratio 0.4L, Random Vancomycin Level 21.8 Height (Feet): 5 Height (Inches): 2.00 Weight (Pounds): 102 General Appearance: no apparent distress, lethargic Cardiovascular: normal rate Respiratory/Chest: decreased breath sounds Abdomen: soft Objective no change William Blackwood MD Dec 30, 2018 15:25
--- NOTE | 2018-12-30 15:56 | Surgery Progress Note ---
Surgery Progress Note Subjective Symptoms: improved, voiding well, passing flatus, BM Objective Last 24 Hour Vital Signs Date Time Temp Pulse Resp B/P (MAP) Pulse Ox O2 Delivery O2 Flow Rate FiO2 12/30/18 13:26 112/58 12/30/18 12:00 99.9 72 18 112/58 (76) 93 12/30/18 09:00 65 99/47 12/30/18 09:00 65 99/47 12/30/18 09:00 Room Air 12/30/18 08:00 97.5 65 17 99/47 (64) 97 12/30/18 05:40 107/55 12/30/18 04:00 99.1 67 20 107/52 (70) 95 12/30/18 00:00 97.4 68 20 128/65 (86) 95 12/29/18 22:00 119/60 12/29/18 21:00 Room Air 12/29/18 21:00 69 114/60 12/29/18 20:00 98.8 69 20 114/60 (78) 96 12/29/18 16:00 98.0 71 18 117/65 (82) 94 I&O Intake and Output 12/29/18 12/30/18 19:00 07:00 Intake Total 120 ml Balance 120 ml Intake Oral 120 ml # Voids 3 Dressing: saturated Wound: clean Cardiovascular: RSR Respiratory: clear Abdomen: soft, flat, present bowel sounds Extremities: no tenderness, no cyanosis Laboratory Tests Test 12/30/18 05:12 White Blood Count 10.8 K/UL (4.8-10.8) Red Blood Count 3.05 M/UL (4.20-5.40) L Hemoglobin 8.9 G/DL (12.0-16.0) L Hematocrit 28.7 % (37.0-47.0) L Mean Corpuscular Volume 94 FL (80-99) Mean Corpuscular Hemoglobin 29.1 PG (27.0-31.0) Mean Corpuscular Hemoglobin Concent 30.9 G/DL (32.0-36.0) L Red Cell Distribution Width 17.0 % (11.6-14.8) H Platelet Count 251 K/UL (150-450) Mean Platelet Volume 6.7 FL (6.5-10.1) Neutrophils (%) (Auto) 51.9 % (45.0-75.0) Lymphocytes (%) (Auto) 42.9 % (20.0-45.0) Monocytes (%) (Auto) 4.6 % (1.0-10.0) Eosinophils (%) (Auto) 0.2 % (0.0-3.0) Basophils (%) (Auto) 0.4 % (0.0-2.0) Sodium Level 138 MMOL/L (136-145) Potassium Level 3.7 MMOL/L (3.5-5.1) Chloride Level 98 MMOL/L (98-107) Carbon Dioxide Level 32 MMOL/L (21-32) Anion Gap 8 mmol/L (5-15) Blood Urea Nitrogen 41 mg/dL (7-18) H Creatinine 3.8 MG/DL (0.55-1.30) H Estimat Glomerular Filtration Rate mL/min (>60) Glucose Level 234 MG/DL (74-106) H Calcium Level 8.9 MG/DL (8.5-10.1) Phosphorus Level 3.4 MG/DL (2.5-4.9) Magnesium Level 2.0 MG/DL (1.8-2.4) Total Bilirubin 0.4 MG/DL (0.2-1.0) Aspartate Amino Transf (AST/SGOT) 30 U/L (15-37) Alanine Aminotransferase (ALT/SGPT) 16 U/L (12-78) Alkaline Phosphatase 183 U/L (46-116) H C-Reactive Protein, Quantitative 19.1 mg/dL (0.00-0.90) H Pro-B-Type Natriuretic Peptide 4565 pg/mL (0-125) H Total Protein 6.6 G/DL (6.4-8.2) Albumin 2.0 G/DL (3.4-5.0) L Globulin 4.6 g/dL Albumin/Globulin Ratio 0.4 (1.0-2.7) L Random Vancomycin Level 21.8 ug/mL Plan Problems: (1) Urinary retention (2) Diabetes mellitus (3) Failure to thrive (0-17) Assessment & Plan: Will continue with nutritional optimization while in hospital (4) Anemia due to acute blood loss (5) Abscess of right hip Assessment & Plan: Abscess of right hip s/p I&D and debridement. was very large concerning wound that requiring prolonged care and still continues to require care as wound is open. wound evaluated at bedside and now much improved. a significant portion of wound has closed and healed. open debridement area now much smaller and with granulation tissue. no signs of active infection. no purulent drainage, remainder of wound reapproximating well. will continue with wound management until completely healed. apply hydrogel infused gauze to right hip open wound daily, cover with foam dressing, change daily. wash wound with dressing changes heel protectors turn q2h off load pressure will monitor while in hospital and care for patient and wounds thank you (6) Renal failure (ARF), acute on chronic (7) ESRD (end stage renal disease) Assessment & Plan: improving with HD cont as per nephro (8) Anemia in CKD (chronic kidney disease) (9) Hypertensive kidney disease (10) Malnutrition Assessment & Plan: DAILY ESTIMATED NEEDS: Needs based on Wounds, DM, ESRD + possible HD/ 39kg 35-40 kcals/kg 7455-2023 total kcals (WITHOUT HD: 0.8-1.1) (WITH HD: 1.25-1.8) g protein/kg (WITHOUT HD: 31-43) (WITH HD: 49-70) g total protein 20-25 mL/kg 780-975 total fluid mLs NUTRITION DIAGNOSIS: * Increased kcal and protein needs r/t wound healing, underweight status, HD needs as evidenced by s/p recent I&D R hip abscess with excisional debridement, pt is underweight per guidelines, generalized moderate wasting, currently w/ an order for PermCath for HD initiation. * Swallowing and chewing difficulty R/T dysphagia, edentulous status as evidenced by pt on pureed moist texture diet. CURRENT DIET:Renal, pureed moist PO DIET RECOMMENDATIONS: RENAL DIET (texture per FEATHER SEPARATOR) ADDITIONAL RECOMMENDATIONS: 1) Calibrated bed scale wt for accurate CBW 2) Monitor lytes daily- phos elev 3) WOUND CARE: add Nephrovite x 1, Balta 1pkt BID 4) Monitor for HD initiation- w/ an order for PermCath 5) FEATHER SEPARATOR evaluation for appropriate texture 6) Monitor BGs closely, need for NISS- h/o DM Camilo James Dec 30, 2018 15:56
[2018-12-30] MEDS: Fluconazole 100mg tab ORAL SCH (16:01)
--- NOTE | 2018-12-30 19:19 | NUR ---
HAND-OFF: Report given to Aries PEDRAZA RN.
--- NOTE | 2018-12-30 19:30 | NUR ---
NURSE NOTES: Received patient in bed. A&OX1. IV site patent and intact. Perma cath noted on right chest. Dressing dry and intact on right hip. Restraint on bilateral wrist, radial pulse present, no skin tear or bruise noted. Bed in lowest position. Call light within reach. Will continue to monitor.
[2018-12-30] MEDS: Dyna-Hex 2% Top Sol 2oz TOPIC SCH (21:00)
[2018-12-31] VITALS: BP 96/76
[2018-12-31 04:00] VITALS: BP 142/77
[2018-12-31] MEDS: HydrALAZINE 10mg Tab ORAL SCH (06:02)
[2018-12-31 06:59] LABS: BASOPHILS % (AUTO) 0.9 % (0.0-2.0); EOSINOPHILS % (AUTO) 0.3 % (0.0-3.0); HEMATOCRIT 28.9 % (37.0-47.0); LYMPHOCYTES % (AUTO) 46.9 % (20.0-45.0); MEAN CORPUSCULAR VOLUME 93 FL (80-99); MONOCYTES % (AUTO) 5.5 % (1.0-10.0); NEUTROPHILS % (AUTO) 46.4 % (45.0-75.0); PLATELET COUNT 309 K/UL (150-450); RED CELL DISTRIBUTION WIDTH 17.4 % (11.6-14.8); WHITE BLOOD COUNT 14.1 K/UL (4.8-10.8)
--- NOTE | 2018-12-31 07:04 | NUR ---
HAND-OFF: Report given to Shashank Saucedo RN.
[2018-12-31 07:18] LABS: ALANINE AMINOTRANSFERASE 16 U/L (12-78); ALBUMIN 2.2 G/DL (3.4-5.0); ALBUMIN/GLOBULIN RATIO 0.4 (1.0-2.7); ALKALINE PHOSPHATASE 260 U/L (46-116); ANION GAP 8 mmol/L (5-15); ASPARTATE AMINO TRANSFERASE 24 U/L (15-37); BILIRUBIN,TOTAL 0.4 MG/DL (0.2-1.0); BLOOD UREA NITROGEN 61 mg/dL (7-18); CALCIUM 9.2 MG/DL (8.5-10.1); CARBON DIOXIDE 31 MMOL/L (21-32); CHLORIDE 97 MMOL/L (98-107); CREATININE 5.3 MG/DL (0.55-1.30); PHOSPHORUS 2.1 MG/DL (2.5-4.9); POTASSIUM 3.9 MMOL/L (3.5-5.1); SODIUM 136 MMOL/L (136-145)
[2018-12-31] MEDS ORDERED: MIRTAZAPINE15 M3 ORAL (07:49)
[2018-12-31] MEDS ORDERED: VANCOMYCIN750 MG/150 IV (07:49)
[2018-12-31] MEDS ORDERED: RENVELA0.8 GM ORAL (07:49)
[2018-12-31] MEDS ORDERED: MEGACE ORA400 MG/10 ORAL (07:49)
[2018-12-31] MEDS ORDERED: COREG3.125 MG ORAL (07:49)
[2018-12-31] MEDS ORDERED: HEPARIN SO5000 UNIT2 SUBQ (07:49)
[2018-12-31] MEDS ORDERED: NORVASC5 MG ORAL (07:49)
[2018-12-31] MEDS ORDERED: OLANZAPINE2.5 MG ORAL (07:49)
[2018-12-31] MEDS ORDERED: SYNTHROID50 MCG ORAL (07:49)
[2018-12-31] MEDS ORDERED: HALDOL INJECT5 MG/ML IM (07:49)
[2018-12-31] MEDS ORDERED: PANTOPRAZOLE SO40 MG ORAL (07:49)
[2018-12-31] MEDS ORDERED: CATAPRES TTS-1 PATCH TDERMAL (07:49)
[2018-12-31 08:00] VITALS: BP 113/55
[2018-12-31] MEDS: Renvela 800mg Pkt ORAL SCH (08:42)
[2018-12-31] MEDS: Megace 400mg/10ml Susp ORAL SCH (08:42)
[2018-12-31] MEDS: OLANZapine 2.5mg tab ORAL SCH (08:42)
[2018-12-31] MEDS: Heparin 5000 units/ml inj SUBQ SCH (08:44)
[2018-12-31] MEDS: Fluconazole 100mg tab ORAL SCH (08:45)
[2018-12-31] MEDS ORDERED: Vancomycin 750mg/NS 275ml IVPB ONE ×2 (09:00)
--- NOTE | 2018-12-31 09:57 | NUR ---
NURSE NOTES: RN SPOKE TO DR Linwood NG AND MADE AWARE OF DISCHARGE AND WBC 14.[address] Linwood NG, NO NEW ORDERS. PT TO CONTINUE TO RECEIVE VANCOMYCIN WITH HEMODIALYSIS UNTIL JANUARY 16.
--- NOTE | 2018-12-31 10:19 | NUR ---
NURSE NOTES: RN SPOKE TO SANYA GUADARRAMA, [facility] AND GAVE REPORT. CHIARA MADE AWARE OF IV VANCOMYCIN 750MG TO BE GIVEN WITH DIALYSIS AND WOUND ON RIGHT TROCHANTER. [facility] AT 1230HRS. RN SPOKE TO OLGA MILO (NEXT OF [facility]) AND MADE AWARE OF DISCHARGE. YOU IS DRIVING SO RN TO CALL BACK WITH ADDRESS TO [facility].
--- NOTE | 2018-12-31 11:14 | Nephrology Progress Note ---
Assessment/Plan Problem List: (1) ESRD (end stage renal disease) (2) Diabetes mellitus (3) Failure to thrive (0-17) (4) Anemia in CKD (chronic kidney disease) (5) Hypertensive kidney disease (6) Malnutrition (7) Staphylococcus aureus bacteremia Assessment Renal failure: - Chronic: Due to underlying ?HTN / DM ... - s/p mild Urinary Retention in ANJEL HyperGlycemia / DM / Proteinuria Anemia s/p Right hip abcess UTI . Plan Plan: adjust BP meds- On Vanco one dose Venofer On Epogen labs in am Renal diet Permacath 12/21 done , it had to be done under anesthesia Keep BP and BS in check HEP Panel ordered per orders start Megace HD next 01/01 as OP if discharged med surg Subjective ROS Limited/Unobtainable: No Constitutional: Reports: malaise Objective Objective Last 24 Hour Vital Signs Date Time Temp Pulse Resp B/P (MAP) Pulse Ox O2 Delivery O2 Flow Rate FiO2 12/31/18 09:00 Room Air 12/31/18 08:39 68 113/55 12/31/18 08:39 68 113/55 12/31/18 08:00 96.4 68 20 113/55 (74) 96 12/31/18 06:02 142/77 12/31/18 04:00 97.0 68 19 142/77 (98) 94 12/31/18 00:00 98.5 67 18 96/76 (83) 95 12/30/18 22:12 142/67 12/30/18 22:09 97.5 71 18 142/67 (92) 96 12/30/18 21:00 Room Air 12/30/18 21:00 68 119/57 12/30/18 20:00 97.5 68 18 119/57 (77) 96 12/30/18 17:13 67 117/93 12/30/18 16:00 97.9 67 20 117/93 (101) 97 12/30/18 13:26 112/58 12/30/18 12:00 99.9 72 18 112/58 (76) 93 Intake and Output 12/30/18 12/31/18 19:00 07:00 Intake Total 360 ml 240 ml Output Total 0 ml Balance 360 ml 240 ml Intake Oral 360 ml 240 ml Output Urine Total 0 ml # Voids 1 Current Medications Medications (Trade) Dose Ordered Sig/Javier Route PRN Reason Start Time Stop Time Status Last Admin Dose Admin Acetaminophen (Tylenol) 650 mg Q4H PRN ORAL Mild Pain/Temp > 100.5 12/25/18 16:00 01/24/19 15:59 12/25/18 17:09 Amlodipine Besylate (Norvasc) 5 mg BID ORAL 12/30/18 09:00 01/18/19 08:59 Carvedilol (Coreg) 3.125 mg EVERY 12 HOURS ORAL 12/25/18 21:00 01/17/19 20:59 12/30/18 21:00 Chlorhexidine Gluconate (Nae-Hex 2%) 1 applic DAILY@2000 TOPIC 12/25/18 20:00 01/22/19 19:59 12/30/18 21:00 Clonidine HCl (Catapres TTS-1) 1 patch QWEEK TDERMAL 12/27/18 09:00 01/26/19 08:59 12/27/18 10:00 Diphenhydramine HCl (Benadryl) 50 mg Q4H PRN ORAL Itching 12/25/18 13:00 01/24/19 12:59 12/30/18 16:01 Epoetin Thomas (Epoetin Thomas(ESRD on dialysis)) 10,000 unit THU-THU-THU SUBQ 12/27/18 21:00 01/21/19 20:59 12/29/18 20:09 Fluconazole (Diflucan) 100 mg DAILY ORAL 12/30/18 15:30 01/06/19 15:29 12/31/18 08:45 Haloperidol Lactate (Haldol) 5 mg Q6H PRN IM Agitation 12/25/18 13:30 01/21/19 13:29 Heparin Sodium (Porcine) (Heparin 5000 units/ml) 5,000 units EVERY 12 HOURS SUBQ 12/25/18 21:00 01/18/19 14:14 12/31/18 08:44 Hydralazine HCl (Apresoline) 10 mg Q8HR ORAL 12/29/18 14:00 01/19/19 13:59 12/31/18 06:02 Hydralazine HCl (Apresoline) 25 mg Q4H PRN ORAL SBP > 160mmHg 12/25/18 13:30 01/17/19 13:29 12/26/18 10:48 Lactulose (Cephulac) 30 gm TIDPRN PRN ORAL Constipation 12/25/18 13:30 01/24/19 13:29 12/31/18 08:54 Levothyroxine Sodium (Synthroid) 50 mcg DAILY@0630 ORAL 12/26/18 06:30 01/18/19 06:29 12/31/18 06:02 Loperamide HCl (Imodium) 2 mg Q6H PRN ORAL Diarrhea 12/25/18 13:30 01/17/19 13:29 Megestrol Acetate (Megace) 400 mg TWICE A DAY ORAL 12/25/18 18:00 01/19/19 17:59 12/31/18 08:42 Mirtazapine (Remeron) 15 mg BEDTIME ORAL 12/25/18 21:00 01/17/19 20:59 12/30/18 21:00 Olanzapine (ZyPREXA) 2.5 mg TID ORAL 12/25/18 13:00 01/20/19 15:06 12/31/18 08:42 Pantoprazole (Protonix) 40 mg DAILY ORAL 12/30/18 09:00 01/29/19 08:59 12/31/18 08:42 Sevelamer Carbonate (Renvela) 800 mg THREE TIMES A DAY ORAL 12/29/18 13:00 01/22/19 17:59 12/31/18 08:42 Vancomycin HCl (Vanco rx to dose) 1 ea DAILY PRN MISC Per rx protocol 12/26/18 07:00 01/25/19 06:59 Laboratory Tests 12/31/18 05:50: White Blood Count 14.1H, Red Blood Count 3.10L, Hemoglobin 9.0L, Hematocrit 28.9L, Mean Corpuscular Volume 93, Mean Corpuscular Hemoglobin 29.1, Mean Corpuscular Hemoglobin Concent 31.2L, Red Cell Distribution Width 17.4H, Platelet Count 309, Mean Platelet Volume 5.8L, Neutrophils (%) (Auto) 46.4, Lymphocytes (%) (Auto) 46.9H, Monocytes (%) (Auto) 5.5, Eosinophils (%) (Auto) 0.3, Basophils (%) (Auto) 0.9, Sodium Level 136, Potassium Level 3.9, Chloride Level 97L, Carbon Dioxide Level 31, Anion Gap 8, Blood Urea Nitrogen 61H, Creatinine 5.3H, Estimat Glomerular Filtration Rate , Glucose Level 183H, Calcium Level 9.2, Phosphorus Level 2.1L, Magnesium Level 2.1, Total Bilirubin 0.4, Aspartate Amino Transf (AST/SGOT) 24, Alanine Aminotransferase (ALT/SGPT) 16, Alkaline Phosphatase 260H, C-Reactive Protein, Quantitative 16.8H, Pro-B- Type Natriuretic Peptide 3646H, Total Protein 7.2, Albumin 2.2L, Globulin 5.0, Albumin/Globulin Ratio 0.4L Height (Feet): 5 Height (Inches): 2.00 Weight (Pounds): 102 General Appearance: no apparent distress Objective no change William Blackwood MD Dec 31, 2018 11:14
--- NOTE | 2018-12-31 11:27 | NUR ---
DISCHARGE PLANNED DISCHARGE TO [facility] RO[facility] SKILLED T: [phone] FOR NURSE TO NURSE REPORT [facility] HAS BEEN ARRANGED FOR 1230 LOCAL OPERATOR US RENAL ARIANNA SILVESTRE T: [phone] SAT 1:30 PM CALLED AND LEFT MESSAGE FOR THEM TO EXPECT PATIENT TOMORROW FOR DIALYSIS
[2018-12-31 12:00] VITALS: BP 96/72
--- NOTE | 2018-12-31 13:02 | NUR ---
NURSE NOTES: RN CALLED NEXT OF KIN, RACQUEL PEDRAZA, SECOND TIME. LEFT VOICEMAIL AND GAVE ADDRESS, PHONE NUMBER, AND ROOM NUMBER OF DISCHARGE DISPOSITION ([facility]) AND RN CALLBACK NUMBER TO [facility] FOR ANY FURTHER QUESTIONS. IV ACCESS WAS DISCONTINUED. RESTRAINTS DISCONTINUED. PT WAS DISCHARGED IN STABLE CONDITION. BELONGINGS GIVEN TO AMBULANCE PERSONNEL: TOP, PANTS, 2 CDS, 1 RED CD/RADIO PLAYER.
--- NOTE | 2018-12-31 15:13 | Surgery Progress Note ---
Surgery Progress Note Subjective Additional Comments no acute events improving exam stable okay for dc Objective Last 24 Hour Vital Signs Date Time Temp Pulse Resp B/P (MAP) Pulse Ox O2 Delivery O2 Flow Rate FiO2 12/31/18 12:00 96.4 74 20 96/72 (80) 96 12/31/18 09:00 Room Air 12/31/18 08:39 68 113/55 12/31/18 08:39 68 113/55 12/31/18 08:00 96.4 68 20 113/55 (74) 96 12/31/18 06:02 142/77 12/31/18 04:00 97.0 68 19 142/77 (98) 94 12/31/18 00:00 98.5 67 18 96/76 (83) 95 12/30/18 22:12 142/67 12/30/18 22:09 97.5 71 18 142/67 (92) 96 12/30/18 21:00 Room Air 12/30/18 21:00 68 119/57 12/30/18 20:00 97.5 68 18 119/57 (77) 96 12/30/18 17:13 67 117/93 12/30/18 16:00 97.9 67 20 117/93 (101) 97 I&O Intake and Output 12/30/18 12/31/18 19:00 07:00 Intake Total 360 ml 240 ml Output Total 0 ml Balance 360 ml 240 ml Intake Oral 360 ml 240 ml Output Urine Total 0 ml # Voids 1 Dressing: saturated Wound: clean Cardiovascular: RSR Respiratory: clear Abdomen: soft, flat, non-tender, present bowel sounds Extremities: no edema, no tenderness, no cyanosis, other Laboratory Tests Test 12/31/18 05:50 White Blood Count 14.1 K/UL (4.8-10.8) H Red Blood Count 3.10 M/UL (4.20-5.40) L Hemoglobin 9.0 G/DL (12.0-16.0) L Hematocrit 28.9 % (37.0-47.0) L Mean Corpuscular Volume 93 FL (80-99) Mean Corpuscular Hemoglobin 29.1 PG (27.0-31.0) Mean Corpuscular Hemoglobin Concent 31.2 G/DL (32.0-36.0) L Red Cell Distribution Width 17.4 % (11.6-14.8) H Platelet Count 309 K/UL (150-450) Mean Platelet Volume 5.8 FL (6.5-10.1) L Neutrophils (%) (Auto) 46.4 % (45.0-75.0) Lymphocytes (%) (Auto) 46.9 % (20.0-45.0) H Monocytes (%) (Auto) 5.5 % (1.0-10.0) Eosinophils (%) (Auto) 0.3 % (0.0-3.0) Basophils (%) (Auto) 0.9 % (0.0-2.0) Sodium Level 136 MMOL/L (136-145) Potassium Level 3.9 MMOL/L (3.5-5.1) Chloride Level 97 MMOL/L (98-107) L Carbon Dioxide Level 31 MMOL/L (21-32) Anion Gap 8 mmol/L (5-15) Blood Urea Nitrogen 61 mg/dL (7-18) H Creatinine 5.3 MG/DL (0.55-1.30) H Estimat Glomerular Filtration Rate mL/min (>60) Glucose Level 183 MG/DL (74-106) H Calcium Level 9.2 MG/DL (8.5-10.1) Phosphorus Level 2.1 MG/DL (2.5-4.9) L Magnesium Level 2.1 MG/DL (1.8-2.4) Total Bilirubin 0.4 MG/DL (0.2-1.0) Aspartate Amino Transf (AST/SGOT) 24 U/L (15-37) Alanine Aminotransferase (ALT/SGPT) 16 U/L (12-78) Alkaline Phosphatase 260 U/L (46-116) H C-Reactive Protein, Quantitative 16.8 mg/dL (0.00-0.90) H Pro-B-Type Natriuretic Peptide 3646 pg/mL (0-125) H Total Protein 7.2 G/DL (6.4-8.2) Albumin 2.2 G/DL (3.4-5.0) L Globulin 5.0 g/dL Albumin/Globulin Ratio 0.4 (1.0-2.7) L Plan Problems: (1) Urinary retention (2) Diabetes mellitus (3) Failure to thrive (0-17) Assessment & Plan: Will continue with nutritional optimization while in hospital (4) Anemia due to acute blood loss (5) Abscess of right hip Assessment & Plan: Abscess of right hip s/p I&D and debridement. was very large concerning wound that requiring prolonged care and still continues to require care as wound is open. wound evaluated at bedside and now much improved. a significant portion of wound has closed and healed. open debridement area now much smaller and with granulation tissue. no signs of active infection. no purulent drainage, remainder of wound reapproximating well. will continue with wound management until completely healed. apply hydrogel infused gauze to right hip open wound daily, cover with foam dressing, change daily. wash wound with dressing changes heel protectors turn q2h off load pressure will monitor while in hospital and care for patient and wounds thank you cont with above care upon discharge until wound healed and closed (6) Renal failure (ARF), acute on chronic (7) ESRD (end stage renal disease) Assessment & Plan: improving with HD cont as per nephro (8) Anemia in CKD (chronic kidney disease) (9) Hypertensive kidney disease (10) Malnutrition Assessment & Plan: DAILY ESTIMATED NEEDS: Needs based on Wounds, DM, ESRD + possible HD/ 39kg 35-40 kcals/kg 1661-4221 total kcals (WITHOUT HD: 0.8-1.1) (WITH HD: 1.25-1.8) g protein/kg (WITHOUT HD: 31-43) (WITH HD: 49-70) g total protein 20-25 mL/kg 780-975 total fluid mLs NUTRITION DIAGNOSIS: * Increased kcal and protein needs r/t wound healing, underweight status, HD needs as evidenced by s/p recent I&D R hip abscess with excisional debridement, pt is underweight per guidelines, generalized moderate wasting, currently w/ an order for PermCath for HD initiation. * Swallowing and chewing difficulty R/T dysphagia, edentulous status as evidenced by pt on pureed moist texture diet. CURRENT DIET:Renal, pureed moist PO DIET RECOMMENDATIONS: RENAL DIET (texture per SHEET METAL PATTERN CUTTER) ADDITIONAL RECOMMENDATIONS: 1) Calibrated bed scale wt for accurate CBW 2) Monitor lytes daily- phos elev 3) WOUND CARE: add Nephrovite x 1, Balta 1pkt BID 4) Monitor for HD initiation- w/ an order for PermCath 5) SHEET METAL PATTERN CUTTER evaluation for appropriate texture 6) Monitor BGs closely, need for NISS- h/o DM Camilo James Dec 31, 2018 15:13
--- NOTE | 2018-12-31 17:15 | Discharge Summary ---
DATE OF ADMISSION: 12/18/2018 DATE OF DISCHARGE: 12/31/2018 ADMISSION DIAGNOSES: 1. Right hip abscess, status post I and D. 2. Schizophrenia. 3. Hypertension. 4. End-stage renal disease. 5. Dementia. 6. Failure to thrive. DISCHARGE DIAGNOSES: 1. Right hip abscess, status post I and D. 2. Schizophrenia. 3. Hypertension. 4. End-stage renal disease. 5. Dementia. 6. Failure to thrive. 7. MRSA bacteremia. HOSPITAL COURSE: The patient is an unfortunate female with a history of schizophrenia and chronic kidney disease. She had had worsening renal insufficiency on her prior admission, was recommended that she undergo hemodialysis, but the family declined. The [facility] where she had improved, but renal function got worse. The family eventually spoke to the patient, who agreed to initiation of dialysis, concerned about the patient's ability to comply with dialysis including her agitation, were discussed at length with the family members, but they are willing to take the risk of altered complications related to hemodialysis as the patient stated that she would like to try. The patient was admitted. She underwent placement of a PermCath. She was started on hemodialysis. Her hospital course was complicated by bacteremia. On discharge, she was clinically improved. No fevers. No chills. Repeat cultures were negative. She will be discharged to a prison facility. She will complete vancomycin till January 16. DISCHARGE MEDICATIONS: Please see discharge medication list for discharge medications. DIET: Puree diet. ACTIVITY: Ad-mindi. FOLLOWUP: The patient will follow up in one to two days at the prison facility. Nate Beltran M.D. DR: JEANNINE JOB#: [id number] CC:
--- NOTE | 2019-01-01 00:15 | Progress Note ---
DATE: 12/31/2018 SUBJECTIVE: The patient is doing better. She is still confused and easily agitated, unable to provide any history. The patient has severe memory impairment. MENTAL STATUS EXAMINATION: The patient is alert, confused, disoriented. Mood is agitated. Affect is flat. Thought process, there is a paucity of thought content. Thought content, no suicidal or homicidal ideation. Memory is impaired. ASSESSMENT: 1. Dementia with behavioral disturbance. 2. Schizophrenia. PLAN: 1. We will continue Zyprexa. 2. Continue Remeron. Brianna Hein M.D. DR: CARIDAD JOB#: [id number] CC:
--- NOTE | 2019-01-02 12:31 | Cardiology Report ---
APPROVED REPORT EXAM: Two-dimensional and M-mode echocardiogram with Doppler and color Doppler. INDICATION Endocarditis M-Mode DIMENSIONS IVSd1.2 (0.7-1.1cm)Left Atrium (MM)3.0 (1.6-4.0cm) LVDd3.7 (3.5-5.6cm)Aortic Root3.0 (2.0-3.7cm) PWd1.5 (0.7-1.1cm)Aortic Cusp Exc.1.6 (1.5-2.0cm) LVDs2.3 (2.5-4.0cm) PWs2.3 cm Normal left ventricular chamber size, systolic function and wall motion. Left ventricular ejection fraction estimated to be 55 %. Mild left ventricular hypertrophy. Trivial pericardial effusion. All other cardiac chamber sizes are within normal limits. Focal aortic valve sclerosis with adequate cusp excursion. Thickened mitral valve leaflets with normal excursion. Mitral annulus and aortic root calcification. Pulmonic valve not well visualized. Normal tricuspid valve structure. IVC is normal in size with physiological collapse. A color flow and spectral Doppler study was performed and revealed: Mild aortic regurgitation. Mild mitral regurgitation. Mitral diastolic velocities suggest mild left ventricular diastolic dysfunction (Grade I). Mild tricuspid regurgitation. Tricuspid systolic velocities suggests peak right ventricular systolic pressure of 22 mmHg. No pulmonic regurgitation present.
== END 2018-12-31 12:50 | DRG 673 ==
LOC: 2E 12-18 13:42 → 4E 12-25 13:08
PROC: 5A1D70Z Performance of Urinary Filtration, Intermittent, Less than 6 Hours Per Day (ICD-10-PCS; principal; 2018-12-21)
PROC: B513ZZA Fluoroscopy of Right Jugular Veins, Guidance (ICD-10-PCS; principal; 2018-12-21)
PROC: 05HM33Z Insertion of Infusion Device into Right Internal Jugular Vein, Percutaneous Approach (ICD-10-PCS; principal; 2018-12-21)
PROC: 0JH63XZ Insertion of Tunneled Vascular Access Device into Chest Subcutaneous Tissue and Fascia, Percutaneous Approach (ICD-10-PCS; principal; 2018-12-21)
DX: I12.0 Hypertensive chronic kidney disease with stage 5 chronic kidney disease or end stage renal disease (principal); N18.6 End stage renal disease; A41.01 Sepsis due to Methicillin susceptible Staphylococcus aureus; N17.9 Acute kidney failure, unspecified; L02.415 Cutaneous abscess of right lower limb; Z68.1 Body mass index [BMI] 19.9 or less, adult; N39.0 Urinary tract infection, site not specified; E46 Unspecified protein-calorie malnutrition; B49 Unspecified mycosis; F03.91 Unspecified dementia, unspecified severity, with behavioral disturbance; R62.7 Adult failure to thrive; F20.9 Schizophrenia, unspecified; E11.65 Type 2 diabetes mellitus with hyperglycemia; E11.22 Type 2 diabetes mellitus with diabetic chronic kidney disease; N18.9 Chronic kidney disease, unspecified; R33.9 Retention of urine, unspecified; F41.9 Anxiety disorder, unspecified; F32.9 Major depressive disorder, single episode, unspecified; D63.1 Anemia in chronic kidney disease
CPT/HCPCS: 36415; 71045; 76000; 80048; 80053; 80061; 80202; 81001; 82550; 82553; 82607; 82728; 82746; 83036; 83540; 83550; 83735; 83880; 84100; 84443; 84484; 84550; 85007; 85025; 85610; 85730; 86140; 86706; 86707; 86803; 87040; 87081; 87086; 87181; 93005; 93306; 96360; 99284

== ENCOUNTER 2018-12-18 12:36 | Emergency (ER) | payer MEDICARE, OTHER ==
[~2018-12-18] VITALS: Ht 152.4 cm; Wt 45.4 kg
[2018-12-18] MEDS ORDERED: ALBUTEROL2.5 MG/3 M INH (12:45)
[2018-12-18] MEDS ORDERED: ATROPINE SULFAT15 ML SL (12:45)
[2018-12-18] MEDS ORDERED: BISACODYL10 M1 RC (12:45)
[2018-12-18] MEDS ORDERED: NORCO 5-325 TA1 EACH ORAL (12:45)
--- NOTE | 2018-12-18 12:56 | NUR ---
ED Nurse Note: PT BROUGHT IN BY AMBULANCE FROM [facility]. PT NONVERBAL BUT RESPONSIVE TO VOICE AND ABLE TO OBEY COMMANDS. PT IS HUNGARIAN SPEAKING. PER EMS, PT BROUGHT IN DUE TO ABNORMAL CREATININE LEVELS. ON ASSESSMENT, VSS. PT PRESENTS WITH WOUND TO RIGHT HIP. PHOTO TAKEN AND UPLOADED TO EMR.
[2018-12-18 12:58] VITALS: BP 165/68
[2018-12-18 13:02] LABS: HEMATOCRIT 28.2 % (37.0-47.0); MEAN CORPUSCULAR VOLUME 95 FL (80-99); PLATELET COUNT 501 K/UL (150-450); RED BLOOD COUNT 2.96 M/UL (4.20-5.40); RED CELL DISTRIBUTION WIDTH 18.2 % (11.6-14.8); WHITE BLOOD COUNT 9.7 K/UL (4.8-10.8)
[2018-12-18 13:17] LABS: ANION GAP 10 mmol/L (5-15); BLOOD UREA NITROGEN 61 mg/dL (7-18); CALCIUM 9.1 MG/DL (8.5-10.1); CARBON DIOXIDE 20 MMOL/L (21-32); CHLORIDE 108 MMOL/L (98-107); CREATININE 5.5 MG/DL (0.55-1.30); POTASSIUM 4.7 MMOL/L (3.5-5.1); SODIUM 138 MMOL/L (136-145)
[2018-12-18 13:30] LABS: ALANINE AMINOTRANSFERASE 15 U/L (12-78); ALBUMIN 2.8 G/DL (3.4-5.0); ALBUMIN/GLOBULIN RATIO 0.7 (1.0-2.7); ALKALINE PHOSPHATASE 92 U/L (46-116); ASPARTATE AMINO TRANSFERASE 17 U/L (15-37); BILIRUBIN,TOTAL 0.2 MG/DL (0.2-1.0); CKMB 2.5 NG/ML (0.0-3.6); CREATINE KINASE 41 U/L (26-308)
--- NOTE | 2018-12-18 13:42 | NUR ---
ED Nurse Note: PER DR MCARTHUR, PT WAS SUPPOSED TO BE A DIRECT ADMIT TO TELEMETRY UNIT, NOT ER ADMIT. TELEMETRY CHARGE NURSE, JONATHON, NOTIFIED THAT PT WILL BE TRANSPORTED UP TO TELEMETRY.
[2018-12-18 13:44] VITALS: BP 162/64
--- NOTE | 2018-12-18 13:55 | Diagnostic Imaging Report ---
EXAM: XR Chest, 1 View CLINICAL HISTORY: WEAK TECHNIQUE: Frontal view of the chest. COMPARISON: Chest x-rays dated 11/21/18 and 11/12/18 FINDINGS: Lungs: Unremarkable. The lungs appear clear. No focal consolidation. Pleural space: Unremarkable. The costophrenic angles are sharp. No visible pneumothorax. Heart: Unremarkable. No cardiomegaly. Mediastinum: Unremarkable. Bones/joints: Unremarkable. Vasculature: Atherosclerotic calcifications are noted within the aortic arch. Tubes, lines and devices: Telemetry leads overlie the thorax. IMPRESSION: No acute findings.
--- NOTE | 2018-12-18 14:06 | Emergency Room Report ---
History of Present Illness General Chief Complaint: Abnormal Labs Source: EMS, Caregiver Present Illness HPI 78-year-old female presents ED for evaluation. Patient brought in by EMS from [facility] facility. For abnormal labs. Recent creatinine elevated. Chronic kidney disease. Patient nonverbal at baseline. Unable to provide any additional history at this time. No signs of distress. No fevers or chills. No other aggravating relieving factors. No other associated symptoms Allergies: Coded Allergies: No Known Allergies (Unverified , 11/12/18) Patient History Past Medical History: DM, dementia, psych hx, renal disease Pertinent Family History: none Social History: Denies: smoking, alcohol use, drug use Now: No Immunizations: UTD Reviewed Nursing Documentation: PMH: Agreed; PSxH: Agreed Nursing Documentation-PMH Hx Hypertension: Yes - Hypothyroidism Hx Diabetes: Yes - type 2 Hx Cancer: No Hx Gastrointestinal Problems: No History Of Psychiatric Problem: Yes - Bipolar, Depression Hx Neurological Problems: Yes Hx Dementia: Yes Review of Systems All Other Systems: limited Physical Exam Vital Signs Date Time Temp Pulse Resp B/P (MAP) Pulse Ox O2 Delivery O2 Flow Rate FiO2 12/18/18 12:34 97.2 69 20 157/65 (95) 97 Room Air Sp02 EP Interpretation: reviewed, normal General Appearance: GCS 15, non-toxic, cachetic, other - nonverbal Head: normocephalic ENT: normal ENT inspection Neck: normal inspection Respiratory: chest non-tender, lungs clear, normal breath sounds, speaking full sentences Cardiovascular #1: regular rate, rhythm, no edema Gastrointestinal: normal bowel sounds, non tender, soft, non-distended, no guarding, no rebound Rectal: deferred Genitourinary: no CVA tenderness Musculoskeletal: back normal Neurologic: other - nonverbal Psychiatric: other - nonverbal Skin: other - see nursing skin notes Lymphatic: normal inspection Medical Decision Making Diagnostic Impression: Primary Impression: Renal failure (ARF), acute on chronic Qualified Codes: N17.9 - Acute kidney failure, unspecified; N18.9 - Chronic kidney disease, unspecified ER Course Hospital Course 78 yo F presents to ED for worsening BUN/Cr. h/o chronic kidney disease. Differential diagnoses include: ND/unstable angina, fluid overload, CHF exacerabation, hyperkalemia, uremia Clinical course Patient placed on stretcher. on manager games. After initial history and physical I ordered labs, EKG, chest x-ray labs reviewed- BUN/Cr elevated. K ok. no leukocytosis, hemoglobin/hematocrit stable EKG - NSR, no acute ischemic changes interpreted by me Chest x-ray- no acute process Case discussed with Dr. Beltran and he agreed to accept the patient to his service for further care and support I. I feel this is a highly complex case requiring extensive working including EKG/Rhythm strip, Xray/CT/US, Blood/urine lab work, repeat exams while in ED, and administration of strong opiates/narcotics for pain control, admission to hospital or close patient follow up. Diagnosis - acute on chronic renal failure admitted to telemetry in serious condition Labs Test 12/18/18 11:50 White Blood Count 9.7 K/UL (4.8-10.8) Red Blood Count 2.96 M/UL (4.20-5.40) Hemoglobin 9.0 G/DL (12.0-16.0) Hematocrit 28.2 % (37.0-47.0) Mean Corpuscular Volume 95 FL (80-99) Mean Corpuscular Hemoglobin 30.3 PG (27.0-31.0) Mean Corpuscular Hemoglobin Concent 31.8 G/DL (32.0-36.0) Red Cell Distribution Width 18.2 % (11.6-14.8) Platelet Count 501 K/UL (150-450) Mean Platelet Volume 5.0 FL (6.5-10.1) Neutrophils (%) (Auto) % (45.0-75.0) Lymphocytes (%) (Auto) % (20.0-45.0) Monocytes (%) (Auto) % (1.0-10.0) Eosinophils (%) (Auto) % (0.0-3.0) Basophils (%) (Auto) % (0.0-2.0) Differential Total Cells Counted 100 Neutrophils % (Manual) 25 % (45-75) Lymphocytes % (Manual) 67 % (20-45) Monocytes % (Manual) 5 % (1-10) Eosinophils % (Manual) 2 % (0-3) Basophils % (Manual) 1 % (0-2) Band Neutrophils 0 % (0-8) Platelet Estimate Increased Platelet Morphology Normal Anisocytosis 1+ Sodium Level 138 MMOL/L (136-145) Potassium Level 4.7 MMOL/L (3.5-5.1) Chloride Level 108 MMOL/L (98-107) Carbon Dioxide Level 20 MMOL/L (21-32) Anion Gap 10 mmol/L (5-15) Blood Urea Nitrogen 61 mg/dL (7-18) Creatinine 5.5 MG/DL (0.55-1.30) Estimat Glomerular Filtration Rate mL/min (>60) Glucose Level 168 MG/DL (74-106) Calcium Level 9.1 MG/DL (8.5-10.1) Total Bilirubin 0.2 MG/DL (0.2-1.0) Aspartate Amino Transf (AST/SGOT) 17 U/L (15-37) Alanine Aminotransferase (ALT/SGPT) 15 U/L (12-78) Alkaline Phosphatase 92 U/L (46-116) Total Creatine Kinase 41 U/L (26-308) Creatine Kinase MB 2.5 NG/ML (0.0-3.6) Creatine Kinase MB Relative Index 6.0 Troponin I 0.000 ng/mL (0.000-0.056) Total Protein 6.7 G/DL (6.4-8.2) Albumin 2.8 G/DL (3.4-5.0) Globulin 3.9 g/dL Albumin/Globulin Ratio 0.7 (1.0-2.7) EKG Diagnostic Results Rate: normal Rhythm: NSR ST Segments: no acute changes ASA given to the pt in ED: No Rhythm Strip Diag. Results EP Interpretation: yes Rhythm: NSR, no PVC's, no ectopy Chest X-Ray Diagnostic Results Chest X-Ray Diagnostic Results : Chest X-Ray Ordered: Yes # of Views/Limited/Complete: 1 View Indication: Other EP Interpretation: Yes Interpretation: no consolidation, no effusion, no pneumothorax, no acute cardiopulmonary disease Impression: No acute disease Electronically Signed by: Electronically signed by Jesus Hartman MD Last Vital Signs Date Time Temp Pulse Resp B/P (MAP) Pulse Ox O2 Delivery O2 Flow Rate FiO2 12/18/18 13:44 97.5 68 13 162/64 99 Room Air Status: improved Disposition: ADMITTED INPATIENT Condition: Serious Referrals: Nate Beltran MD (PCP) Jesus Hartman MD Dec 18, 2018 14:06
[2018-12-19] MEDS ORDERED: RENVELA800 MG ORAL (19:04)
[2018-12-19] MEDS ORDERED: DOXAZOSIN MESYLA2 MG ORAL (19:04)
[2018-12-19] MEDS ORDERED: LORAZEPAM2 MG/1 M1 SL (19:04)
[2018-12-19] MEDS ORDERED: ZOFRAN ODT8 MG SL (19:04)
[2018-12-19] MEDS ORDERED: MORPHINE S100 MG/5 M PO (19:04)
[2018-12-19] MEDS ORDERED: TYLENOL650 MG RECTAL (19:04)
[2018-12-19] MEDS ORDERED: ACETAMINOPHEN325 M1 ORAL (19:04)
[2018-12-19] MEDS ORDERED: DIPHENHYDRAMINE50 M1 ORAL (19:08)
== END 2018-12-18 13:45 | disposition other institution (70) ==
LOC: EDBD 12:36 → EMR 13:00
DX: N17.9 Acute kidney failure, unspecified (principal); E11.22 Type 2 diabetes mellitus with diabetic chronic kidney disease; N18.9 Chronic kidney disease, unspecified; F31.9 Bipolar disorder, unspecified; F32.9 Major depressive disorder, single episode, unspecified; F03.90 Unspecified dementia, unspecified severity, without behavioral disturbance, psychotic disturbance, mood disturbance, and anxiety
CPT/HCPCS: 36415; 71045; 80053; 82550; 82553; 84484; 85007; 85025; 87081; 93005; 96360; 99284

== ENCOUNTER 2019-02-09 23:16 | Inpatient (IN) | payer MEDICARE, OTHER ==
[~2019-02-09] VITALS: Ht 154.9 cm; Wt 40.8 kg
[~2019-02-09 23:16] MED LIST changes: +ACETAMINOPHEN325 M1 ORAL; +ALBUTEROL2.5 MG/3 M INH; +ATROPINE SULFAT15 ML SL; +BISACODYL10 M1 RC; +CATAPRES TTS-1 PATCH TDERMAL; +COREG3.125 MG ORAL; +DIPHENHYDRAMINE50 M1 ORAL; +DOXAZOSIN MESYLA2 MG ORAL; +HALDOL INJECT5 MG/ML IM; +HEPARIN SO5000 UNIT2 SUBQ; +LORAZEPAM2 MG/1 M1 SL; +MEGACE ORA400 MG/10 ORAL; +MORPHINE S100 MG/5 M PO; +NORCO 5-325 TA1 EACH ORAL; +NORVASC5 MG ORAL; +OLANZAPINE2.5 MG ORAL; +RENVELA800 MG ORAL; +SYNTHROID50 MCG ORAL; +TYLENOL650 MG RECTAL; +VANCOMYCIN750 MG/150 IV; +ZOFRAN ODT8 MG SL
[2019-02-10] MEDS ORDERED: NS 500ML ONE (21:54)
[2019-02-10] MEDS ORDERED: Tubing IV Secondary IV ONE (21:54)
--- NOTE | 2019-02-10 22:15 | NUR ---
NURSE NOTES: Pt transferred from [facility] via [facility] under DR. Beltran due to right shoulder pain and swelling. Report received from Lisa at the SNF. Pt has renal disease, HD, had HD today. Right trochanter stage 4 wound. Vitas stable on room air. Pt is confused, bedbound, Frisian speaking. Pt is on renal diet ( pureed moist with nectar thick fluid) Fall precaution in place. Bed alarm on. Bed locked low in position,side rails up and call light within reach. Pt oriented to the unit. Pt has no belongings. Pt will be monitored.
[2019-02-10 22:35] VITALS: BP 155/70
[2019-02-10] MEDS ORDERED: MEGESTROL ACETAT5 GM PO (23:40)
[2019-02-10] MEDS ORDERED: PRO-STAT LIQUID30 ML ORAL (23:42)
--- NOTE | 2019-02-10 23:44 | NUR ---
NURSE NOTES: Dr. Beltran is called, call forwarded to Dr. Garrett's voicemail. Message left to call back with admission orders.
[2019-02-11] VITALS: BP 148/68
--- NOTE | 2019-02-11 01:23 | NUR ---
NURSE NOTES: Admission orderers acknowledged from Dr. Stubbs.
[2019-02-11] MEDS ORDERED: Vancomycin 750mg/D5W 275ml IVPB SCH ×2 (01:30)
[2019-02-11] MEDS: OLANZapine 2.5mg tab ORAL SCH ×5 (02:19→23:58)
[2019-02-11] MEDS: Cefepime HCl 1 GM in D5W 55 ML IVPB SCH ×2 (02:20→23:59)
--- NOTE | 2019-02-11 02:26 | NUR ---
NURSE NOTES: Pt is unable to take olanzapine PO, she is asleep and lethargic.
[2019-02-11 04:00] VITALS: BP 157/73
--- NOTE | 2019-02-11 06:30 | NUR ---
NURSE NOTES: Dr. Beltran came to see patient.
[2019-02-11 06:37] LABS: BASOPHILS % (AUTO) 0.5 % (0.0-2.0); EOSINOPHILS % (AUTO) 0.9 % (0.0-3.0); HEMATOCRIT 28.9 % (37.0-47.0); MEAN CORPUSCULAR VOLUME 93 FL (80-99); MONOCYTES % (AUTO) 3.9 % (1.0-10.0); NEUTROPHILS % (AUTO) 65.7 % (45.0-75.0); PLATELET COUNT 716 K/UL (150-450); RED BLOOD COUNT 3.09 M/UL (4.20-5.40); RED CELL DISTRIBUTION WIDTH 16.5 % (11.6-14.8); WHITE BLOOD COUNT 12.9 K/UL (4.8-10.8)
[2019-02-11] MEDS ORDERED: Gadavist 7.5mMol/7.5ml vial IV PRN (06:45)
[2019-02-11] MEDS ORDERED: LORazepam Inj 2mg/ml 1ml IV SCH ×2 (06:45→11:30)
[2019-02-11 07:02] LABS: ALANINE AMINOTRANSFERASE 10 U/L (12-78); ALBUMIN 1.7 G/DL (3.4-5.0); ALBUMIN/GLOBULIN RATIO 0.3 (1.0-2.7); ALKALINE PHOSPHATASE 173 U/L (46-116); ANION GAP 4 mmol/L (5-15); ASPARTATE AMINO TRANSFERASE 16 U/L (15-37); BILIRUBIN,TOTAL 0.4 MG/DL (0.2-1.0); BLOOD UREA NITROGEN 29 mg/dL (7-18); CALCIUM 9.1 MG/DL (8.5-10.1); CARBON DIOXIDE 33 MMOL/L (21-32); CHLORIDE 98 MMOL/L (98-107); CREATININE 2.4 MG/DL (0.55-1.30); POTASSIUM 4.1 MMOL/L (3.5-5.1); SODIUM 135 MMOL/L (136-145)
--- NOTE | 2019-02-11 07:15 | History and Physical Report ---
DATE OF ADMISSION: 02/10/2019 CHIEF COMPLAINT: Rule out septic right shoulder. HISTORY OF PRESENT ILLNESS: The patient is an unfortunate 78-year-old female. She has a history of schizophrenia, hypertension, dementia, and end-stage renal disease. She was previously hospitalized a little over a month ago with worsening chronic kidney disease. She was eventually started on dialysis. She has been tolerating that well. Two weeks ago, she did have a fever and was noted to have a positive blood cultures. She was started on IV vancomycin with hemodialysis. Several days prior to admission, the patient developed pain, decreased mobility, swelling, and warmth of the right shoulder. There is concern about a possible septic joint and therefore, the patient is admitted for further evaluation and care. She is confused at baseline. Cannot provide any history. PAST MEDICAL HISTORY: As above. PAST SURGICAL HISTORY: Includes a history of a PermCath. CURRENT MEDICATIONS: Reconciled and reviewed. ALLERGIES: None. FAMILY HISTORY: None. SOCIAL HISTORY: There is no known history of tobacco, ethanol, or drugs. REVIEW OF SYSTEMS: Unobtainable as the patient is confused. PHYSICAL EXAMINATION: VITAL SIGNS: Temperature 97.1, pulse 84, respirations 18, and blood pressure 157/73. GENERAL: The patient is a chronically ill-appearing female, in no apparent distress. She is awake, but confused. HEENT: The oropharynx is clear. NECK: Supple. HEART: Regular rate and rhythm. LUNGS: Clear. ABDOMEN: Soft, nontender, and nondistended. EXTREMITIES: Without clubbing or cyanosis. Right shoulder is somewhat swollen and slightly erythematous. The patient has limited passive and active range of motion.. LABORATORY DATA: Labs show white count of 13,000 and hemoglobin is 9. Laboratories are otherwise pending. ASSESSMENT: This is a 78-year-old female with a history of schizophrenia, hypertension, end-stage renal disease, on chronic hemodialysis, and history of CHF, admitted with complaints of possible septic right shoulder. PLAN: 1. MRI with contrast to rule out a septic joint. 2. Continue IV vancomycin. 3. Cardiology, Renal, and ID followups will be obtained. 4. Plan of care will be discussed with the patient's son. Nate Beltran M.D. DR: JADIEL JOB#: [id number] CC:
--- NOTE | 2019-02-11 07:15 | NUR ---
HAND-OFF: Report given to Senait chacon RN.Informed patient is fall risk.
--- NOTE | 2019-02-11 07:52 | NUR ---
NURSE NOTES: received report from SANYA Ann. new admission on 02/10. swab pending. patient in bed. alert. disoriented. verbally responsive in portuguese. no respiratory distress noted on room air. pain on rt shoulder. MRI on scheduled. IV on RH24 saline lock intact. bed in the lowest position and locked. call light within reach. alarm on. will continue to provide plan of care.
[2019-02-11 08:00] VITALS: BP 150/75
--- NOTE | 2019-02-11 09:34 | NUR ---
NURSE NOTES: RN called to jesús ROJO and son, franca. for consent MRI w/ contrast on rt shoulder. no attending call at this times. left messages and waiting return call.
--- NOTE | 2019-02-11 10:30 | NUR ---
NURSE NOTES: received call from Nancy ROJO, got a telephone consent for MRI w/contrast on Rt shoulder. second nurse verified with SANYA Mc.
--- NOTE | 2019-02-11 10:51 | NUR ---
NURSE NOTES: patient left unit for MRI on rt shoulder. stable condition. Ativan 2mg IVP once given as ordered. no respiratory distress noted. IV on RH 24g intact.
--- NOTE | 2019-02-11 11:20 | NUR ---
NURSE NOTES: received call from Bahman VAZ not able to take MRI d/t patient keep moving during test. administered ativan 2mg IV once before MRI. notified shantal mcwilliams and received additional ativan 2mg ivp once. order noted and carried out.
--- NOTE | 2019-02-11 11:45 | NUR ---
NURSE NOTES: administered additional [id number] IVP once at MRI center. Bahman,MRI witnessed medication administration. patient no respiratory distress noted.
--- NOTE | 2019-02-11 11:50 | NUR ---
RD ASSESSMENT & RECOMMENDATIONS SEE CARE ACTIVITY FOR COMPLETE ASSESSMENT DAILY ESTIMATED NEEDS: Needs based on Wounds, DM, ESRD+ HD/ 36.4kg 35-40 kcals/kg 1118-1281 total kcals 1.5-2.0 g protein/kg 55-73 g total protein 20-25 mL/kg 728-910 total fluid mLs NUTRITION DIAGNOSIS: * Increased kcal and protein needs r/t wound healing, underweight status, HD needs as evidenced by stage 4 wound at rt trochanter, pt is underweight per guidelines, generalized moderate wasting, ESRD, now on HD. * Swallowing and chewing difficulty R/T dysphagia, edentulous status as evidenced by pt on pureed moist texture, NTL diet. CURRENT DIET:Renal, pureed moist w/ NTL PO DIET RECOMMENDATIONS: Maintain RENAL DIET (texture per RAND MAKER or as tolerated) ADDITIONAL RECOMMENDATIONS: 1) Calibrated bed scale wt for accurate CBW -> daily wt monitoring 2) WOUND CARE: add Nephrovite x 1, Balta 1pkt BID 3) Monitor BGs, need for carb controlled diet, hypoglycemics (h/o DM) 4) 4oz Nepro TID w/ meals 5) Monitor lytes closely .
--- NOTE | 2019-02-11 12:08 | NUR ---
PT UNABLE TO STAY STILL TO PERFORM MRI, EVEN WITH 2 DOSES OF IV SEDATION GIVEN. SANYA GARCIA HAS BEEN INFORMED. TJB 12:08
--- NOTE | 2019-02-11 12:18 | Consultation ---
Consult Note Consult Note patient ion HD 3 times a week Last dialysed 02/10 78-year-old female with a history of schizophrenia, hypertension, end-stage renal disease, on chronic hemodialysis, and history of CHF, admitted with complaints of possible septic right shoulder. examined data reviewed Assessment/Plan (1) ESRD (end stage renal disease) (2) Diabetes mellitus (3) Failure to thrive (0-17) severe malnutrition (4) Anemia in CKD (chronic kidney disease) (5) Hypertensive kidney disease (6) h/o Staphylococcus aureus bacteremia - septic shoulder . h/o right hip abcess check labs keep bp and BS in check HD as needed Inflammatory markers per orders William Blackwood MD Feb 11, 2019 12:18
--- NOTE | 2019-02-11 12:32 | NUR ---
NURSE NOTES: patient came back to unit via [facility]. Patient was not able to take MRI after 2 dose of sedation. awares.
[2019-02-11] MEDS ORDERED: LR 1000ml ONE (13:00)
[2019-02-11] MEDS ORDERED: NS Irrig 4000ml IRRIG ONE (13:00)
--- NOTE | 2019-02-11 13:00 | NUR ---
NURSE NOTES: received order from Dr. Beltran CT scan stat with IV contrast. norco 10/325tab po prn q4jrs for pain. order noted and carried out.
--- NOTE | 2019-02-11 13:30 | NUR ---
NURSE NOTES: patient is on HD treatment. cr 2.4. CT order changed to CT right shoulder without contrast.
--- NOTE | 2019-02-11 13:47 | Consultation ---
History of Present Illness General Date patient seen: Feb 11, 2019 Present Illness HPI This is a very pleasant 78-year-old female well-known to me from prior admissions where she was initially identified to have a large concerning abscess on her right hip with skin necrosis requiring incision and drainage as well as excisional debridement and prolonged wound care. During that admission patient had multiple comorbidities being cared for including renal insufficiency and failure to thrive. She was discharged safely and has been cared for in the custodial until recent admission when identified to be worsening with renal insufficiency requiring admission to [facility] [place]. She had been placed on HD, imroved, and discharged there after. She now presents with fevers, positive blood cultures, and possible septic joint. Upon admission patient identified to still have an open wound from prior debridement and abscess drainage requiring care and management. Surgery called to evaluate and assist with care. Patient seen, patient evaluate , chart reviewed Allergies: Coded Allergies: No Known Allergies (Unverified , 11/12/18) Medication History Scheduled Amino Acids/Protein Hydrolys (Pro-Stat Liquid), 30 ML ORAL TWICE A DAY, ( Reported) Amlodipine Besylate (Norvasc), 5 MG ORAL BID Amlodipine Besylate* (Amlodipine Besylate*), 10 MG ORAL DAILY, (Reported) Carvedilol (Coreg), 3.125 MG ORAL EVERY 12 HOURS Clonidine (Catapres-Tts 1), 1 PATCH TDERMAL QWEEK Doxazosin Mesylate (Doxazosin Mesylate), 2 MG ORAL BID, (Reported) Heparin Sod (Porcine) (Heparin Sodium*), 5,000 UNITS SUBQ EVERY 12 HOURS Hydralazine Hcl* (Hydralazine Hcl*), 50 MG ORAL EVERY 6 HOURS, (Reported) Levothyroxine Sodium (Synthroid), 50 MCG ORAL DAILY@0630 Megestrol Acetate (Megestrol Acetate), 400 MG ORAL TWICE A DAY Megestrol Acetate,Micronized (Megestrol Acetate), 400 MG PO BID, (Reported) Mirtazapine* (Remeron*), 15 MG ORAL BEDTIME, (Reported) Mirtazapine* (Mirtazapine*), 15 MG ORAL BEDTIME Olanzapine (Olanzapine), 2.5 MG ORAL TID Pantoprazole* (Pantoprazole*), 40 MG ORAL DAILY Quetiapine Fumarate* (Seroquel*), 100 MG ORAL QHS, (Reported) Sevelamer Carbonate (Renvela), 800 MG ORAL THREE TIMES A DAY, (Reported) Sevelamer Carbonate* (Renvela*), 800 MG ORAL THREE TIMES A DAY Vancomycin In Dextrose,Iso-Osm (Vancomycin 750 Mg/150 Ml Bag), 750 MG IV m w f Scheduled PRN Acetaminophen (Acetaminophen), 650 MG RECTAL Q4HR PRN for For Pain, (Reported) Acetaminophen* (Acetaminophen 325MG Tablet*), 650 MG ORAL Q4H PRN for For Pain, (Reported) Acetaminophen* (Acetaminophen 325MG Tablet*), 650 MG ORAL Q4H PRN for Mild Pain/ Temp > 100.5, (Reported) Albuterol Sulfate* (Albuterol Sulfate Hhn*), 3 ML INH Q6H PRN for Shortness of Breath, (Reported) Atropine Sulfate (Atropine Sulfate), 3 DRP SL Q4HR PRN for EXCESSIVE SECRETIONS, (Reported) Bisacodyl (Bisacodyl), 10 MG RC DAILY PRN for Constipation, (Reported) Diphenhydramine Hcl (Diphenhydramine Hcl), 50 MG ORAL Q6H PRN for Itching, ( Reported) Haloperidol Lactate (Haloperidol Lactate), 5 MG IM Q6H PRN Hydrocodone Bit/Acetaminophen 5-325* ([place] 5-325*), 1 TAB ORAL Q4H PRN for For Pain, (Reported) Lorazepam* (Lorazepam*), 0.25 ML SL Q6HR PRN for For Anxiety, (Reported) Morphine Sulfate (Morphine Sulfate), 0.25 ML PO Q2HR PRN for PAIN 4-10, ( Reported) Ondansetron Odt* (Zofran Odt*), 8 MG SL Q8HR PRN for Nausea & Vomiting, ( Reported) Patient History Limited by: medical condition History Provided By: Medical Record, PMD Healthcare decision maker N Resuscitation status Full Code Advanced Directive on File Past Medical/Surgical History Past Medical/Surgical History: (1) Urinary retention (2) Diabetes mellitus (3) Anemia due to acute blood loss (4) Failure to thrive (0-17) (5) Abscess of right hip (6) Renal failure (ARF), acute on chronic (7) ESRD (end stage renal disease) (8) Anemia in CKD (chronic kidney disease) (9) Hypertensive kidney disease (10) Malnutrition (11) Coag negative Staphylococcus bacteremia (12) Staphylococcus aureus bacteremia (13) Septic arthritis (14) Wound, open, hip or thigh with complication Review of Systems ROS Narrative cannot obtain given medical condition Physical Exam General Appearance: no apparent distress, alert Lines, tubes and drains: peripheral HEENT: mucous membranes moist Neck: normal inspection Respiratory/Chest: normal breath sounds, decreased breath sounds Abdomen: normal bowel sounds, non tender, soft, no organomegaly, no mass Extremities: inflammation, other Skin Exam: warm/dry Neurologic: alert Last 24 Hour Vital Signs Date Time Temp Pulse Resp B/P (MAP) Pulse Ox O2 Delivery O2 Flow Rate FiO2 02/11/19 09:25 82 150/75 02/11/19 09:25 82 150/75 02/11/19 09:00 Room Air 02/11/19 08:00 97.5 82 18 150/75 (100) 97 02/11/19 04:00 97.1 84 18 157/73 (101) 95 02/11/19 00:00 98.0 86 18 148/68 (94) 95 02/10/19 22:35 98.3 80 18 155/70 (98) 94 02/10/19 22:35 Room Air Intake and Output 02/10/19 02/11/19 19:00 07:00 Intake Total 450.000 ml Balance 450.000 ml Intake Oral 120 ml IV Total 330.000 ml # Voids 2 # Bowel Movements 1 Laboratory Tests Test 02/11/19 06:13 White Blood Count 12.9 K/UL (4.8-10.8) H Red Blood Count 3.09 M/UL (4.20-5.40) L Hemoglobin 9.0 G/DL (12.0-16.0) L Hematocrit 28.9 % (37.0-47.0) L Mean Corpuscular Volume 93 FL (80-99) Mean Corpuscular Hemoglobin 29.0 PG (27.0-31.0) Mean Corpuscular Hemoglobin Concent 31.0 G/DL (32.0-36.0) L Red Cell Distribution Width 16.5 % (11.6-14.8) H Platelet Count 716 K/UL (150-450) H Mean Platelet Volume 4.7 FL (6.5-10.1) L Neutrophils (%) (Auto) 65.7 % (45.0-75.0) Lymphocytes (%) (Auto) 29.0 % (20.0-45.0) Monocytes (%) (Auto) 3.9 % (1.0-10.0) Eosinophils (%) (Auto) 0.9 % (0.0-3.0) Basophils (%) (Auto) 0.5 % (0.0-2.0) Sodium Level 135 MMOL/L (136-145) L Potassium Level 4.1 MMOL/L (3.5-5.1) Chloride Level 98 MMOL/L (98-107) Carbon Dioxide Level 33 MMOL/L (21-32) H Anion Gap 4 mmol/L (5-15) L Blood Urea Nitrogen 29 mg/dL (7-18) H Creatinine 2.4 MG/DL (0.55-1.30) H Estimat Glomerular Filtration Rate mL/min (>60) Glucose Level 126 MG/DL (74-106) H Calcium Level 9.1 MG/DL (8.5-10.1) Total Bilirubin 0.4 MG/DL (0.2-1.0) Aspartate Amino Transf (AST/SGOT) 16 U/L (15-37) Alanine Aminotransferase (ALT/SGPT) 10 U/L (12-78) L Alkaline Phosphatase 173 U/L (46-116) H C-Reactive Protein, Quantitative 18.3 mg/dL (0.00-0.90) H Total Protein 8.2 G/DL (6.4-8.2) Albumin 1.7 G/DL (3.4-5.0) L Globulin 6.5 g/dL Albumin/Globulin Ratio 0.3 (1.0-2.7) L Thyroid Stimulating Hormone (TSH) 2.911 uiU/mL (0.358-3.740) Microbiology Date/Time Source Procedure Growth Status 02/11/19 02:20 Rectum Received Height (Feet): 5 Height (Inches): 2.00 Weight (Pounds): 97 Medications Current Medications Medications (Trade) Dose Ordered Sig/Javier Route PRN Reason Start Time Stop Time Status Last Admin Dose Admin Acetaminophen (Tylenol) 650 mg Q4H PRN ORAL Mild Pain/Temp > 100.5 02/11/19 00:45 03/13/19 00:44 Acetaminophen/ Hydrocodone Bitart ([place] 10/325) 1 tab Q4H PRN ORAL For Pain 02/11/19 13:45 02/18/19 13:44 Amlodipine Besylate (Norvasc) 5 mg BID ORAL 02/11/19 09:00 03/13/19 08:59 02/11/19 09:25 Carvedilol (Coreg) 3.125 mg EVERY 12 HOURS ORAL 02/11/19 09:00 03/13/19 08:59 02/11/19 09:25 Cefepime HCl 1 gm/ Dextrose 55 ml @ 110 mls/hr Q24H IVPB 02/11/19 00:45 02/18/19 00:44 02/11/19 02:20 Clonidine HCl (Catapres TTS-1) 1 patch QWEEK TDERMAL 02/14/19 09:00 03/16/19 08:59 Gadobutrol (Gadavist) 7.5 mmol NOW PRN IV Radiology Procedure 02/11/19 06:45 02/15/19 06:45 Heparin Sodium (Porcine) (Heparin 5000 units/ml) 5,000 units EVERY 12 HOURS SUBQ 02/11/19 21:00 03/13/19 20:59 Levothyroxine Sodium (Synthroid) 50 mcg DAILY@0630 ORAL 02/11/19 06:30 03/13/19 06:29 02/11/19 06:23 Olanzapine (ZyPREXA) 2.5 mg BID ORAL 02/11/19 00:45 03/13/19 00:44 02/11/19 09:25 Olanzapine (ZyPREXA) 2.5 mg QHS ORAL 02/11/19 21:00 03/13/19 20:59 Pantoprazole (Protonix) 40 mg DAILY ORAL 02/11/19 09:00 03/13/19 08:59 02/11/19 09:25 Sevelamer Carbonate (Renvela) 800 mg THREE TIMES A DAY ORAL 02/11/19 09:00 03/13/19 08:59 02/11/19 12:28 Vancomycin HCl (Vanco rx to dose) 1 ea DAILY PRN MISC Per rx protocol 02/11/19 00:45 03/13/19 00:44 Assessment/Plan Problem List: (1) Septic arthritis Assessment & Plan: pending MRI results on IV abx labs noted ICD Codes: M00.9 - Pyogenic arthritis, unspecified SNOMED: 284225198 (2) Malnutrition Assessment & Plan: DAILY ESTIMATED NEEDS: Needs based on Wounds, DM, ESRD+ HD/ 36.4kg 35-40 kcals/kg 4110-6176 total kcals 1.5-2.0 g protein/kg 55-73 g total protein 20-25 mL/kg 728-910 total fluid mLs NUTRITION DIAGNOSIS: * Increased kcal and protein needs r/t wound healing, underweight status, HD needs as evidenced by stage 4 wound at rt trochanter, pt is underweight per guidelines, generalized moderate wasting, ESRD, now on HD. * Swallowing and chewing difficulty R/T dysphagia, edentulous status as evidenced by pt on pureed moist texture, NTL diet. CURRENT DIET:Renal, pureed moist w/ NTL PO DIET RECOMMENDATIONS: Maintain RENAL DIET (texture per FACTORY LABORER or as tolerated) ADDITIONAL RECOMMENDATIONS: 1) Calibrated bed scale wt for accurate CBW -> daily wt monitoring 2) WOUND CARE: add Nephrovite x 1, Balta 1pkt BID 3) Monitor BGs, need for carb controlled diet, hypoglycemics (h/o DM) 4) 4oz Nepro TID w/ meals 5) Monitor lytes closely ICD Codes: E46 - Unspecified protein-calorie malnutrition SNOMED: 01134370 (3) Wound, open, hip or thigh with complication Assessment & Plan: history of prior large debridement and evacuation of abscess in hip. since been healing slow but well last admission much improved now with continued improvement. apply hydrogel and gauze, cover with foam dressing, do daily and prn will follow with recs thank you ICD Codes: S71.009A - Unspecified open wound, unspecified hip, initial encounter; S71.109A - Unspecified open wound, unspecified thigh, initial encounter SNOMED: 85515839 (4) Abscess of right hip ICD Codes: L02.415 - Cutaneous abscess of right lower limb SNOMED: 028242 Camilo James Feb 11, 2019 13:47
--- NOTE | 2019-02-11 13:47 | NUR ---
NURSE NOTES: patient came back to unit after CT scan taken. stable condition.
--- NOTE | 2019-02-11 14:36 | NUR ---
NURSE NOTES:WOUND CARE NOTES: Pt presented on admission with full thickness wound with tunneling R trochanter. Base of wound has non-% slough with 10% pink granulation along borders . NO odor or exudate noted. Periwound without erythema or induration. No odor or exudate noted.(L)2.8cm x (W00.5cm ,tunneling at 12 o'clock by 2.7cm. Sacral area is pink and blanchable . Bilat heels are dry and blanchable. No other skin concerns noted. Tx.Plan: Cleanse wound R trochanter with Saline. Loosely pack with Iodoform packing. Apply Moisture Barrier periwound. Cover with Optifoam drsg. Change Daily and prn. Apply Moisture Barrier Paste to Sacrum. Cover with Optifoam drsg. Change every 3 days and prn. Apply Cavilon Skin Barrier to both heels. Cover each heel with Optifoam drsg. Change every 7 days and prn. APM/ELVIA Mattress overlay. Reposition at least every 2hours or as tolerated. Off-load heels with pillow.
[2019-02-11] MEDS: HYDROcodone/Acetamin 10/325 tab ORAL PRN ×2 (15:17→23:58)
--- NOTE | 2019-02-11 15:27 | NUR ---
CASE MANAGEMENT:REVIEW 78YR OLD FEMALE [facility] SI: POSSIBLE SEPTIC RT SHOULDER 98.3 80 18 155/70 94% ON RA WBC+12.9 H/H-9.0/28.9 BUN+29 CR+2.4 CRP+18.3 IS: IV CEFEPIME Q24 IV VANCOMYCIN X1 MRI SHOULDER : MED/SURG STATUS
[2019-02-11 16:00] VITALS: BP 142/80
--- NOTE | 2019-02-11 16:15 | Consultation ---
DATE OF CONSULTATION: 02/11/2019 INFECTIOUS DISEASES CONSULTATION This consult is for coverage of Dr. Solares. CONSULTING PHYSICIAN: Warren Parks M.D. PRIMARY ATTENDING PHYSICIAN: Nate Beltran M.D. REASON FOR CONSULTATION: Septic arthritis, right shoulder. HISTORY OF PRESENT ILLNESS: This is a 78-year-old female, admitted last night from nursing facility because of right shoulder pain, swelling, and decrease in mobility. The patient was recently in [facility] in December of this year. She was found to have Staph aureus sepsis and started on IV antibiotic that supposed to be continued until 01/16/2019. According to primary attending, the patient also had bacteremia 2 weeks ago, was on vancomycin. The patient is not a source of history. PAST MEDICAL HISTORY: Significant for schizophrenia, dementia, hypothyroidism, hypertension, end-stage renal disease, started on hemodialysis since December. PAST SURGICAL HISTORY: Right hip abscess incision and drainage and PermCath placement. ALLERGIES: No known drug allergies. MEDICATIONS: Clonidine, heparin, lorazepam, amlodipine, Renvela, Protonix, carvedilol, levothyroxine, Tylenol, olanzapine, and cefepime. SOCIAL HISTORY: [facility] resident, single. No other history obtainable from the patient. PHYSICAL EXAMINATION: VITAL SIGNS: Temperature 97.5, pulse 82, blood pressure 150/75. GENERAL APPEARANCE: Seems to be thin and cachectic, confused and shouting. HEAD AND NECK: [place] conjunctiva. HEART: Normal rate, has a PermCath in the right side. LUNGS: Clear. ABDOMEN: Soft and nontender. EXTREMITIES: No edema. She has muscle atrophy. LABORATORY AND DIAGNOSTIC DATA: WBC 12.9, hemoglobin 9, hematocrit 28.9. Sodium 135, potassium 4.1, chloride 98, bicarb 33, BUN 29, creatinine 2.4, alkaline phosphatase 173. Albumin 1.7. IMPRESSION: Suspected right shoulder septic arthritis. The patient went to radiology for MRI today, but because of the patient's confusion, it cannot be done, has leukocytosis, has end-stage renal disease on hemodialysis, has anemia, dementia, hypertension, has a recent history of methicillin-sensitive Staph aureus sepsis. RECOMMENDATION: Continue vancomycin and cefepime. We will follow up the clinical course. May need sedation for MRI. At the end of my exam, I thank Dr. Beltran, for involving me in the care of this patient. Warren Parks M.D. DR: Radha JOB#: [id number] CC: ISAI
--- NOTE | 2019-02-11 16:41 | Diagnostic Imaging Report ---
Indication: Right shoulder pain and swelling. Septic shoulder. Altered consciousness Technique: Continuous helical transaxial imaging of the right shoulder was obtained. Coronal and Sagittal 2-D reformats were also obtained. Study obtained in a Siemens sensation [address] Total Dose length Product (DLP): [address] Dose Index Volume (CTDIvol): 0.5, 0.25, 9.86 mGy Comparison: None Findings: Study is limited due to the nonadministration of IV contrast. There is diffuse, large amount of fluid accumulation within the subdeltoid/subacromial bursa. There is air within the fluid. In the absence of the any recent procedure such as a incision and drainage or needle aspiration, the presence of air is likely indicative of infection. There is also a joint effusion much smaller than the amount of subacromial fluid that is present. Trace air also demonstrated within the infraglenoid recess. There is arthritis characterized by narrowing of the articular cartilage between the glenoid and the humeral head. There is essentially [id number] between the inferior glenoid and humeral head. There is a prominent subchondral cyst present. The visualized part of the right lung shows presence of a right pleural effusion. There is a right jugular catheter present. Aorta is moderately calcified. There are calcifications in the mediastinum indicative of old granulomatous disease. IMPRESSION: Right subacromial/subdeltoid bursal effusion with multiple bubbles of air; In the absence of any recent surgery or other intervention, the fluid is likely infected and suspicious for abscess. Smaller glenohumeral joint effusion may be infected as well. The two spaces may communicate. Findings consistent with the given history of septic shoulder. Arthrosis of the glenohumeral joint. Right pleural effusion Old granulomatous disease Right jugular dialysis catheter. The CT scanner at [facility] is accredited by the [employer] and the scans are performed using dose optimization techniques as appropriate to a performed exam including Automatic Exposure control.
--- NOTE | 2019-02-11 16:53 | NUR ---
NURSE NOTES: received call from Radiology. patient CT result came back. Dr. david recommended ortho consult. notified Dr. Beltran.
--- NOTE | 2019-02-11 17:00 | NUR ---
NURSE NOTES: patient has HD on Thu,, and Sat. patient went HD yesterday before admission. notified Dr. Beltran and Dr. Blackwood aware.
--- NOTE | 2019-02-11 17:44 | NUR ---
NURSE NOTES: received order from Dr. Beltran. changed admit status to observation from inpatient. MD will transfer patient to [facility] d/t ortho consult is not available. order noted and carried out.
[2019-02-11] MEDS ORDERED: MILK OF MA400 MG/51 ORAL (18:04)
[2019-02-11] MEDS ORDERED: ATIVAN1 MG ORAL (18:04)
[2019-02-11] MEDS ORDERED: NEPRO CARB STE237 ML PO (18:04)
[2019-02-11] MEDS ORDERED: NEPHROVITE1 TAB ORAL (18:04)
[2019-02-11 20:00] VITALS: BP 122/68
--- NOTE | 2019-02-11 20:00 | NUR ---
NURSE NOTES: Pt is in bed, awake. No acute distress noted. Pt is on Fall precaution. Pt will be repositioned frequently. Dressing dry and intact. Bed locked low in position,side rails up and call light within reach. Bed alarm On. Pt will be monitored.
[2019-02-12] VITALS: BP 128/64
[2019-02-12] MEDS: Heparin 5000 units/ml inj SUBQ SCH ×3 (00:06→20:26)
--- NOTE | 2019-02-12 00:30 | Progress Note ---
DATE: 02/11/2019 CARDIOLOGY PROGRESS NOTE SUBJECTIVE: The patient continues to have painful right shoulder. No chest pain or shortness of breath. OBJECTIVE: VITAL SIGNS: Blood pressure 150/75 earlier, now 142/80; heart rate 77; respiratory rate 20. Afebrile. NECK: LUNGS: Clear. Right chest wall PermCath site dry. CARDIAC: Regular rhythm rate. Normal S1, S2 with a fourth heart sound. ABDOMEN: Soft. EXTREMITIES: No edema. The right shoulder area has some tenderness and decreased range of motion. LABORATORY DATA: Reviewed. White count 12.9, hemoglobin 9. Sodium 135, potassium 4.1, bicarb 33, BUN 29, creatinine 2.4. C-reactive protein is 18. Albumin 1.7. TSH 2.9. IMPRESSION: 1. Possible septic arthritis of right shoulder. 2. End-stage renal disease, on hemodialysis with right chest wall subclavian PermCath. 3. Hypertensive heart disease with some blood pressure lability. 4. Diastolic dysfunction with no signs of acute congestive heart failure. PLAN: 1. Await MRI scan. 2. Continue antimicrobials. 3. Hemodialysis with ultrafiltration for volume management. 4. Cautious titration of antihypertensive regimen. 5. Follow up blood culture results. Abel Stubbs M.D. DR: FLORIDA JOB#: [id number] CC:
--- NOTE | 2019-02-12 01:15 | Consultation ---
DATE OF CONSULTATION: 02/10/2019 CARDIOLOGY CONSULTATION CONSULTING PHYSICIAN: Abel Stubbs M.D. REFERRING PHYSICIAN: Nate Beltran M.D. REASON FOR CONSULTATION: Management of cardiovascular status in the setting of hypertensive heart disease, end-stage renal disease, and acute septic arthritis. HISTORY OF PRESENT ILLNESS: This 78-year-old female with multiple medical problems. She has been on hemodialysis for the past two weeks. She also was treated recently for a septic hip. She has a right chest wall PermCath. She developed decreasing mobility, swelling and pain of her right shoulder recently. She also had some fevers and hospitalization was initiated because of concern over a septic arthritis. I have been asked to assist with cardiovascular management at this time. PAST MEDICAL HISTORY: End-stage renal disease, hypertensive heart disease, schizophrenia, cerebrovascular disease with dementia, type 2 diabetes mellitus, and history of Staph aureus bacteremia due to right hip abscess. MEDICATIONS: Prior to admission, reviewed and reconciled. ALLERGIES: None known. SOCIAL HISTORY: Negative for smoking, alcohol, or substance abuse. FAMILY HISTORY: Not known. REVIEW OF SYSTEMS: Not obtainable from the patient. Pertinent data from prior hospital stays have been reviewed and outlined above. PHYSICAL EXAMINATION: VITAL SIGNS: Afebrile. Blood pressure 155/70, pulse 80, and respirations 18. Room air oxygen saturation 94%. GENERAL: Temporal wasting. HEENT: Conjunctivae are pink. Oropharynx is clear. NECK: Supple. Jugular venous pressure grossly normal. CHEST: Chest wall with right PermCath site clean and dry. LUNGS: Clear. CARDIAC: Regular rhythm and rate. Normal S1, S2 with a fourth heart sound. ABDOMEN: Soft. EXTREMITIES: No edema. Right shoulder with warmth, tenderness and decreased mobility. LABORATORY DATA: Labs are pending. IMPRESSION: 1. Possible septic arthritis of right shoulder. 2. Recent septic hip with Staphylococcus aureus bacteremia. 3. End-stage renal disease. 4. Hypertensive heart disease. 5. Diastolic dysfunction with chronic congestive heart failure. 6. Type 2 diabetes mellitus. PLAN: 1. Hemodialysis with ultrafiltration for volume management. 2. Panculture. 3. Empiric antibiotics. 4. Imaging studies of the shoulder. 5. Titration of antihypertensive regimen based on clinical parameters. 6. Titration of diabetic regimen per primary care physician. Abel Stubbs M.D. DR: [place] JOB#: [id number] CC:
--- NOTE | 2019-02-12 02:20 | NUR ---
NURSE NOTES: Pt is in bed, calm. Fall precaution in place. Pt repositioned frequently. Dressing dry and intact.
[2019-02-12 04:00] VITALS: BP 128/70
--- NOTE | 2019-02-12 07:42 | NUR ---
HAND-OFF: Report given to SANYA Gonzalez. Informed to follow up with Dr. Beltran and case management regrading transfer plan.
--- NOTE | 2019-02-12 07:44 | NUR ---
NURSE NOTES: Received pt from Seth, pt was resting, no acute distress noted. call light w/in reach.
[2019-02-12 08:00] VITALS: BP 124/68
[2019-02-12] MEDS: OLANZapine 2.5mg tab ORAL SCH ×3 (08:50→20:25)
[2019-02-12 08:53] LABS: HEMATOCRIT 28.4 % (37.0-47.0); HEMOGLOBIN 8.8 G/DL (12.0-16.0); MEAN CORPUSCULAR VOLUME 94 FL (80-99); PLATELET COUNT 859 K/UL (150-450); RED BLOOD COUNT 3.03 M/UL (4.20-5.40); RED CELL DISTRIBUTION WIDTH 15.9 % (11.6-14.8); WHITE BLOOD COUNT 11.7 K/UL (4.8-10.8)
[2019-02-12 09:22] LABS: ALANINE AMINOTRANSFERASE 13 U/L (12-78); ALBUMIN 1.9 G/DL (3.4-5.0); ALBUMIN/GLOBULIN RATIO 0.3 (1.0-2.7); ALKALINE PHOSPHATASE 126 U/L (46-116); ANION GAP 10 mmol/L (5-15); ASPARTATE AMINO TRANSFERASE 18 U/L (15-37); BILIRUBIN,TOTAL 0.5 MG/DL (0.2-1.0); BLOOD UREA NITROGEN 46 mg/dL (7-18); CALCIUM 9.6 MG/DL (8.5-10.1); CARBON DIOXIDE 28 MMOL/L (21-32); CHLORIDE 96 MMOL/L (98-107); CHOLESTEROL 105 MG/DL (< 200); CREATININE 3.5 MG/DL (0.55-1.30); GAMMA GLUTAMYL TRANSPEPTIDASE 94 U/L (5-85); HDL CHOLESTEROL 31 MG/DL (40-60); PHOSPHORUS 6.8 MG/DL (2.5-4.9); POTASSIUM 4.9 MMOL/L (3.5-5.1); SODIUM 134 MMOL/L (136-145); TRIGLYCERIDES 121 MG/DL (30-150)
[2019-02-12 09:36] LABS: % IRON SATURATION 35 % (15-50); IRON 31 ug/dL (50-175); TOTAL IRON BINDING CAPACITY 88 ug/dL (250-450)
--- NOTE | 2019-02-12 09:42 | Nephrology Progress Note ---
Assessment/Plan Problem List: (1) ESRD (end stage renal disease) (2) Malnutrition (3) Septic arthritis Assessment: right shoulder (4) Diabetes mellitus (5) Anemia in CKD (chronic kidney disease) Assessment (1) ESRD (end stage renal disease) (2) Diabetes mellitus (3) Failure to thrive (0-17) severe malnutrition (4) Anemia in CKD (chronic kidney disease) (5) Hypertensive kidney disease (6) h/o Staphylococcus aureus bacteremia - septic shoulder . h/o right hip abcess Plan check labs- keep bp and BS in check HD as needed Inflammatory markers vancomycin- monitor levels ortho intervention? per orders Subjective ROS Limited/Unobtainable: No Constitutional: Reports: malaise Objective Objective Last 24 Hour Vital Signs Date Time Temp Pulse Resp B/P (MAP) Pulse Ox O2 Delivery O2 Flow Rate FiO2 02/12/19 08:51 78 124/68 02/12/19 08:01 Room Air 02/12/19 04:00 98.2 80 18 128/70 (89) 100 02/12/19 00:00 97.9 78 18 128/64 (85) 96 02/11/19 23:57 70 122/68 02/11/19 21:00 Room Air 02/11/19 20:00 97.5 70 18 122/68 (86) 97 02/11/19 17:26 77 142/80 02/11/19 16:00 97.8 77 20 142/80 (100) 97 Intake and Output 02/11/19 02/12/19 18:59 06:59 Intake Total 840 ml 55 ml Balance 840 ml 55 ml Intake Oral 840 ml IV Total 55 ml # Voids 6 # Bowel Movements 1 Laboratory Tests 02/12/19 08:10: White Blood Count 11.7H, Red Blood Count 3.03L, Hemoglobin 8.8L, Hematocrit 28.4L, Mean Corpuscular Volume 94, Mean Corpuscular Hemoglobin 28.9, Mean Corpuscular Hemoglobin Concent 30.8L, Red Cell Distribution Width 15.9H, Platelet Count 859H, Mean Platelet Volume 4.3L, Neutrophils (%) (Auto) , Lymphocytes (%) (Auto) , Monocytes (%) (Auto) , Eosinophils (%) (Auto) , Basophils (%) (Auto) , Neutrophils % (Manual) [Pending], Lymphocytes % (Manual) [Pending], Platelet Estimate [Pending], Platelet Morphology [Pending], Erythrocyte Sedimentation Rate [Pending], Sodium Level [Pending], Potassium Level [Pending], Chloride Level [Pending], Carbon Dioxide Level [Pending], Blood Urea Nitrogen [Pending], Creatinine [Pending], Estimat Glomerular Filtration Rate [Pending], Glucose Level [Pending], Hemoglobin A1c 7.3H, Uric Acid [Pending], Calcium Level [Pending], Phosphorus Level [Pending], Magnesium Level [Pending], Iron Level 31L, Total Iron Binding Capacity 88L, Percent Iron Saturation 35, Unsaturated Iron Binding 57L, Ferritin [Pending], Total Bilirubin [Pending], Gamma Glutamyl Transpeptidase [Pending], Aspartate Amino Transf (AST/SGOT) [Pending], Alanine Aminotransferase (ALT/SGPT) [Pending], Alkaline Phosphatase [Pending], C-Reactive Protein, Quantitative [Pending], Pro- B-Type Natriuretic Peptide [Pending], Total Protein [Pending], Albumin [Pending] , Globulin [Pending], Triglycerides Level [Pending], Cholesterol Level [Pending] , LDL Cholesterol [Pending], HDL Cholesterol [Pending], Cholesterol/HDL Ratio [ Pending], Vitamin B12 Level 479, Folate 15.4, Thyroid Stimulating Hormone (TSH) [Pending], Free Thyroxine [Pending], Free Triiodothyronine [Pending], Random Vancomycin Level 23.8 Height (Feet): 5 Height (Inches): 2.00 Weight (Pounds): 97 General Appearance: mild distress Cardiovascular: normal rate Respiratory/Chest: lungs clear Abdomen: soft Extremities: other - swelling right shoulder William Blackwood MD Feb 12, 2019 09:42
[2019-02-12 10:06] LABS: FERRITIN > 2000 NG/ML (8-388)
[2019-02-12 12:00] VITALS: BP 137/75
--- NOTE | 2019-02-12 13:30 | General Progress Note ---
Assessment/Plan Problem List: (1) Septic arthritis ICD Codes: M00.9 - Pyogenic arthritis, unspecified SNOMED: 986453642 (2) Diabetes mellitus ICD Codes: E11.9 - Type 2 diabetes mellitus without complications SNOMED: 54873912 (3) Malnutrition ICD Codes: E46 - Unspecified protein-calorie malnutrition SNOMED: 07837372 (4) ESRD (end stage renal disease) ICD Codes: N18.6 - End stage renal disease SNOMED: 72100301 (5) Staphylococcus aureus bacteremia ICD Codes: R78.81 - Bacteremia SNOMED: 156280390 Status: stable, progressing Assessment/Plan: iv abx ortho eval HD per renal anxiolytics Subjective ROS Limited/Unobtainable: No Constitutional: Reports: malaise, weakness HEENT: Reports: no symptoms Cardiovascular: Reports: no symptoms Respiratory: Reports: no symptoms Gastrointestinal/Abdominal: Reports: no symptoms Genitourinary: Reports: no symptoms Neurologic/Psychiatric: Reports: anxiety Endocrine: Reports: no symptoms Hematologic/Lymphatic: Reports: anemia Allergies: Coded Allergies: No Known Allergies (Unverified , 11/12/18) All Systems: reviewed and negative except above Subjective no events. w/o complaints. Ct with +shoulder fluid collection. on iv abx. Objective Last 24 Hour Vital Signs Date Time Temp Pulse Resp B/P (MAP) Pulse Ox O2 Delivery O2 Flow Rate FiO2 02/12/19 12:00 99.0 80 18 137/75 (95) 95 02/12/19 08:51 78 124/68 02/12/19 08:01 Room Air 02/12/19 08:00 99.2 78 18 124/68 (86) 02/12/19 04:00 98.2 80 18 128/70 (89) 100 02/12/19 00:00 97.9 78 18 128/64 (85) 96 02/11/19 23:57 70 122/68 02/11/19 21:00 Room Air 02/11/19 20:00 97.5 70 18 122/68 (86) 97 02/11/19 17:26 77 142/80 02/11/19 16:00 97.8 77 20 142/80 (100) 97 Intake and Output 02/11/19 02/12/19 18:59 06:59 Intake Total 840 ml 55 ml Balance 840 ml 55 ml Intake Oral 840 ml IV Total 55 ml # Voids 6 # Bowel Movements 1 Laboratory Tests 02/12/19 08:10: White Blood Count 11.7H, Red Blood Count 3.03L, Hemoglobin 8.8L, Hematocrit 28.4L, Mean Corpuscular Volume 94, Mean Corpuscular Hemoglobin 28.9, Mean Corpuscular Hemoglobin Concent 30.8L, Red Cell Distribution Width 15.9H, Platelet Count 859H, Mean Platelet Volume 4.3L, Neutrophils (%) (Auto) , Lymphocytes (%) (Auto) , Monocytes (%) (Auto) , Eosinophils (%) (Auto) , Basophils (%) (Auto) , Differential Total Cells Counted 100, Neutrophils % ( Manual) 62, Lymphocytes % (Manual) 30, Monocytes % (Manual) 5, Eosinophils % ( Manual) 3, Basophils % (Manual) 0, Band Neutrophils 0, Platelet Estimate IncreasedH, Platelet Morphology Normal, Hypochromasia 1+, Anisocytosis 1+, Erythrocyte Sedimentation Rate 117H, Sodium Level 134L, Potassium Level 4.9, Chloride Level 96L, Carbon Dioxide Level 28, Anion Gap 10, Blood Urea Nitrogen 46H, Creatinine 3.5H, Estimat Glomerular Filtration Rate , Glucose Level 108H, Hemoglobin A1c 7.3H, Uric Acid 5.4, Calcium Level 9.6, Phosphorus Level 6.8H, Magnesium Level 1.8, Iron Level 31L, Total Iron Binding Capacity 88L, Percent Iron Saturation 35, Unsaturated Iron Binding 57L, Ferritin > 2000H, Total Bilirubin 0.5, Gamma Glutamyl Transpeptidase 94H, Aspartate Amino Transf (AST/ SGOT) 18, Alanine Aminotransferase (ALT/SGPT) 13, Alkaline Phosphatase 126H, C- Reactive Protein, Quantitative 19.2H, Pro-B-Type Natriuretic Peptide 78443X, Total Protein 8.7H, Albumin 1.9L, Globulin 6.8, Albumin/Globulin Ratio 0.3L, Triglycerides Level 121, Cholesterol Level 105, LDL Cholesterol 50, HDL Cholesterol 31L, Cholesterol/HDL Ratio 3.4, Vitamin B12 Level 479, Folate 15.4, Thyroid Stimulating Hormone (TSH) 4.504H, Free Thyroxine 1.32, Free Triiodothyronine 1.0L, Random Vancomycin Level 23.8 Height (Feet): 5 Height (Inches): 2.00 Weight (Pounds): 97 General Appearance: WD/WN, alert, confused Neck: supple Cardiovascular: normal rate, regular rhythm Respiratory/Chest: chest wall non-tender, lungs clear, normal breath sounds Abdomen: normal bowel sounds, non tender, soft, no organomegaly Edema: no edema noted Arm (L), no edema noted Arm (R), no edema noted Leg (L), no edema noted Leg (R), no edema noted Pedal (L), no edema noted Pedal (R), no edema noted Generalized Neurologic: alert Nate Beltran MD Feb 12, 2019 13:30
[2019-02-12 16:00] VITALS: BP 151/77
--- NOTE | 2019-02-12 18:28 | Surgery Progress Note ---
Surgery Progress Note Subjective Additional Comments no acute events comfortable stable labs noted exam unchanged. CT concerning leukocytosis abnormal labs joint infection Objective Last 24 Hour Vital Signs Date Time Temp Pulse Resp B/P (MAP) Pulse Ox O2 Delivery O2 Flow Rate FiO2 02/12/19 18:19 73 151/78 02/12/19 16:00 97.8 87 18 151/77 (101) 95 02/12/19 12:00 99.0 80 18 137/75 (95) 95 02/12/19 08:51 78 124/68 02/12/19 08:01 Room Air 02/12/19 08:00 99.2 78 18 124/68 (86) 02/12/19 04:00 98.2 80 18 128/70 (89) 100 02/12/19 00:00 97.9 78 18 128/64 (85) 96 02/11/19 23:57 70 122/68 02/11/19 21:00 Room Air 02/11/19 20:00 97.5 70 18 122/68 (86) 97 I&O Intake and Output 02/11/19 02/12/19 19:00 07:00 Intake Total 840 ml 55 ml Balance 840 ml 55 ml Intake Oral 840 ml IV Total 55 ml # Voids 6 # Bowel Movements 1 Cardiovascular: RSR Respiratory: clear Abdomen: soft, non-tender, present bowel sounds Extremities: other Laboratory Tests Test 02/12/19 08:10 White Blood Count 11.7 K/UL (4.8-10.8) H Red Blood Count 3.03 M/UL (4.20-5.40) L Hemoglobin 8.8 G/DL (12.0-16.0) L Hematocrit 28.4 % (37.0-47.0) L Mean Corpuscular Volume 94 FL (80-99) Mean Corpuscular Hemoglobin 28.9 PG (27.0-31.0) Mean Corpuscular Hemoglobin Concent 30.8 G/DL (32.0-36.0) L Red Cell Distribution Width 15.9 % (11.6-14.8) H Platelet Count 859 K/UL (150-450) H Mean Platelet Volume 4.3 FL (6.5-10.1) L Neutrophils (%) (Auto) % (45.0-75.0) Lymphocytes (%) (Auto) % (20.0-45.0) Monocytes (%) (Auto) % (1.0-10.0) Eosinophils (%) (Auto) % (0.0-3.0) Basophils (%) (Auto) % (0.0-2.0) Differential Total Cells Counted 100 Neutrophils % (Manual) 62 % (45-75) Lymphocytes % (Manual) 30 % (20-45) Monocytes % (Manual) 5 % (1-10) Eosinophils % (Manual) 3 % (0-3) Basophils % (Manual) 0 % (0-2) Band Neutrophils 0 % (0-8) Platelet Estimate Increased H Platelet Morphology Normal Hypochromasia 1+ Anisocytosis 1+ Erythrocyte Sedimentation Rate 117 MM/HR (0-30) H Sodium Level 134 MMOL/L (136-145) L Potassium Level 4.9 MMOL/L (3.5-5.1) Chloride Level 96 MMOL/L (98-107) L Carbon Dioxide Level 28 MMOL/L (21-32) Anion Gap 10 mmol/L (5-15) Blood Urea Nitrogen 46 mg/dL (7-18) H Creatinine 3.5 MG/DL (0.55-1.30) H Estimat Glomerular Filtration Rate mL/min (>60) Glucose Level 108 MG/DL (74-106) H Hemoglobin A1c 7.3 % (4.3-6.0) H Uric Acid 5.4 MG/DL (2.6-7.2) Calcium Level 9.6 MG/DL (8.5-10.1) Phosphorus Level 6.8 MG/DL (2.5-4.9) H Magnesium Level 1.8 MG/DL (1.8-2.4) Iron Level 31 ug/dL (50-175) L Total Iron Binding Capacity 88 ug/dL (250-450) L Percent Iron Saturation 35 % (15-50) Unsaturated Iron Binding 57 ug/dL (112-346) L Ferritin > 2000 NG/ML (8-388) H Total Bilirubin 0.5 MG/DL (0.2-1.0) Gamma Glutamyl Transpeptidase 94 U/L (5-85) H Aspartate Amino Transf (AST/SGOT) 18 U/L (15-37) Alanine Aminotransferase (ALT/SGPT) 13 U/L (12-78) Alkaline Phosphatase 126 U/L (46-116) H C-Reactive Protein, Quantitative 19.2 mg/dL (0.00-0.90) H Pro-B-Type Natriuretic Peptide 19335 pg/mL (0-125) H Total Protein 8.7 G/DL (6.4-8.2) H Albumin 1.9 G/DL (3.4-5.0) L Globulin 6.8 g/dL Albumin/Globulin Ratio 0.3 (1.0-2.7) L Triglycerides Level 121 MG/DL (30-150) Cholesterol Level 105 MG/DL (< 200) LDL Cholesterol 50 mg/dL (<100) HDL Cholesterol 31 MG/DL (40-60) L Cholesterol/HDL Ratio 3.4 (3.3-4.4) Vitamin B12 Level 479 PG/ML (193-986) Folate 15.4 NG/ML (8.6-58.9) Thyroid Stimulating Hormone (TSH) 4.504 uiU/mL (0.358-3.740) Free Thyroxine 1.32 NG/DL (0.76-1.46) Free Triiodothyronine 1.0 pg/mL (2.3-4.2) L Random Vancomycin Level 23.8 ug/mL Plan Problems: (1) Septic arthritis Assessment & Plan: Right subacromial/subdeltoid bursal effusion with multiple bubbles of air; In the absence of any recent surgery or other intervention, the fluid is likely infected and suspicious for abscess. Smaller glenohumeral joint effusion may be infected as well. The two spaces may communicate. Findings consistent with the given history of septic shoulder. Arthrosis of the glenohumeral joint. Right pleural effusion Old granulomatous disease Right jugular dialysis catheter. on IV abx labs noted ortho eval pending (2) Malnutrition Assessment & Plan: DAILY ESTIMATED NEEDS: Needs based on Wounds, DM, ESRD+ HD/ 36.4kg 35-40 kcals/kg 8199-4462 total kcals 1.5-2.0 g protein/kg 55-73 g total protein 20-25 mL/kg 728-910 total fluid mLs NUTRITION DIAGNOSIS: * Increased kcal and protein needs r/t wound healing, underweight status, HD needs as evidenced by stage 4 wound at rt trochanter, pt is underweight per guidelines, generalized moderate wasting, ESRD, now on HD. * Swallowing and chewing difficulty R/T dysphagia, edentulous status as evidenced by pt on pureed moist texture, NTL diet. CURRENT DIET:Renal, pureed moist w/ NTL PO DIET RECOMMENDATIONS: Maintain RENAL DIET (texture per SCREW SUPERVISOR or as tolerated) ADDITIONAL RECOMMENDATIONS: 1) Calibrated bed scale wt for accurate CBW -> daily wt monitoring 2) WOUND CARE: add Nephrovite x 1, Balta 1pkt BID 3) Monitor BGs, need for carb controlled diet, hypoglycemics (h/o DM) 4) 4oz Nepro TID w/ meals 5) Monitor lytes closely (3) Wound, open, hip or thigh with complication Assessment & Plan: history of prior large debridement and evacuation of abscess in hip. since been healing slow but well last admission much improved now with continued improvement. apply hydrogel and gauze, cover with foam dressing, do daily and prn will follow with recs thank you (4) Abscess of right hip Camilo Jaems Feb 12, 2019 18:28
--- NOTE | 2019-02-12 19:54 | NUR ---
HAND-OFF: Report given to SANYA Zurita. endorsed to status of observation. Dr. Guzman said that she will have surgery tomorrow, and gave NPO after MN order. .
[2019-02-12 20:00] VITALS: BP 154/74
--- NOTE | 2019-02-12 20:26 | NUR ---
NURSE NOTES: Patient in bed, awake, confused. Abdomen is soft and non distended. No s/s of pain or discomfort noted. Skin is warm and dry to touch. Iv site is noted. Bed in low and locked position. Respiration is even and unlabored. call light is at bedside. Will continue plan of care.
--- NOTE | 2019-02-12 21:15 | Consultation ---
DATE OF CONSULTATION: 02/12/2019 CONSULTING PHYSICIAN: Abel Guzman M.D. REQUESTING PHYSICIAN: Nate Beltran M.D. DIAGNOSIS: Right shoulder abscess. HISTORY: The patient is a 78-year-old demented female who is non-Serbian speaking. She has a history of schizophrenia, dementia, hypertension, and end-stage renal disease. She was recently hospitalized for kidney disease. She was started on dialysis. A few weeks ago, she was noted to have a fever and positive blood cultures. Reportedly, there was a wound near the hip from which the infection was thought to happen. She has since developed swelling and pain in the right shoulder, though she is not communicative, there is evident swelling. Recent CT scan shows an abscess is likely. PAST MEDICAL HISTORY: As per history of present illness. PAST SURGICAL HISTORY: PermCath placement. CURRENT MEDICATIONS: As noted in the chart. ALLERGIES: No known drug allergies. FAMILY HISTORY: Unknown. REVIEW OF SYSTEMS: Unobtainable at this time since she is noncommunicative. PHYSICAL EXAMINATION: Right shoulder reveals large fluctuant area of the anterior shoulder. There are no open wounds, no erythema, and it is not known whether or not it is tender since she does not respond to movement or to palpation. DIAGNOSTIC DATA: CT scan of the right shoulder reveals fluid collection that may represent an abscess. ASSESSMENT AND PLAN: The patient has developed a possible right shoulder abscess. It is unclear whether it communicates with the joint. Because of the effusion of fluid in the subcutaneous region, open irrigation and debridement with possible septic arthritis debridement is recommended. She was not kept NPO despite the orthopedic consultation and therefore surgery will be planned for tomorrow. She is not systemically ill from her shoulder infection at this time. The irrigation and debridement I believe is paramount in her treatment care, especially in light of her inability to communicate. She will continue IV vancomycin and follow up with Cardiology, Nephrology, and Infectious Disease. We will proceed with the operation for irrigation, debridement, and possible wound VAC placement/drain. Thank you for the opportunity to consult. Abel Guzman M.D. DR: PERLITA JOB#: [id number] CC: ISAI
--- NOTE | 2019-02-12 23:00 | NUR ---
NURSE NOTES: Called MD, regarding changing status of admission from observation, left a message. Will reassess.
[2019-02-13] VITALS (18 sets, daily range): BP systolic 142–169; BP diastolic 70–98
[2019-02-13] MEDS: Cefepime HCl 1 GM in D5W 55 ML IVPB SCH (00:01)
--- NOTE | 2019-02-13 07:30 | NUR ---
HAND-OFF: Report given to SANYA Collins.
--- NOTE | 2019-02-13 07:35 | NUR ---
NURSE NOTES: Received patient in bed, opens her eyes spontaneously, patient is non-verbal.Not in acute respiratory/cardiac distress. Perma cath on right upper chest intact. Bed is in lowest position and locked. Bed alarm is on. Patient is on NPO for procedure today per police shift commander. Will continue plan of care.
[2019-02-13] MEDS: Heparin 5000 units/ml inj SUBQ SCH ×2 (09:00→20:14)
[2019-02-13] MEDS: OLANZapine 2.5mg tab ORAL SCH ×3 (09:18→20:15)
[2019-02-13] MEDS: Liothyronine 5mcg tab ORAL SCH (09:18)
--- NOTE | 2019-02-13 09:30 | NUR ---
NURSE NOTES: RN spoke to house player to confirm the surgery schedule for this patient since there is no consent for the procedure. Per house player, her surgery is scheduled @1pm today. RN tried to contact family members but unable to reach any of her family.RN placed calls to patient's son, son-in-law, daughter but no one available, no voice mail.Will follow up.
--- NOTE | 2019-02-13 11:30 | Surgery Progress Note ---
Surgery Progress Note Subjective Additional Comments Patient seen and examined bedside. No acute events. Patient seen by Ortho surgery and plan for washout of the septic joint. Objective Last 24 Hour Vital Signs Date Time Temp Pulse Resp B/P (MAP) Pulse Ox O2 Delivery O2 Flow Rate FiO2 02/13/19 09:18 92 150/87 02/13/19 09:18 92 150/87 02/13/19 09:00 Room Air 02/13/19 08:00 97.3 92 19 142/78 (99) 98 02/13/19 04:00 98.5 92 20 150/87 (108) 96 02/13/19 00:00 97.8 76 17 147/72 (97) 97 02/12/19 21:00 Room Air 02/12/19 20:30 77 154/74 02/12/19 20:00 98.1 80 18 154/74 (100) 99 02/12/19 18:19 73 151/78 02/12/19 16:00 97.8 87 18 151/77 (101) 95 02/12/19 12:00 99.0 80 18 137/75 (95) 95 I&O Intake and Output 02/12/19 02/13/19 18:59 06:59 Intake Total 360 ml 250 ml Balance 360 ml 250 ml Intake Oral 360 ml 250 ml # Voids 5 4 # Bowel Movements 1 Dressing: saturated Wound: other Drains: other Cardiovascular: RSR Respiratory: clear Abdomen: soft, non-tender, present bowel sounds, other Extremities: edema, no cyanosis, other Plan Problems: (1) Septic arthritis Assessment & Plan: Right subacromial/subdeltoid bursal effusion with multiple bubbles of air; In the absence of any recent surgery or other intervention, the fluid is likely infected and suspicious for abscess. Smaller glenohumeral joint effusion may be infected as well. The two spaces may communicate. Findings consistent with the given history of septic shoulder. Arthrosis of the glenohumeral joint. Right pleural effusion Old granulomatous disease Right jugular dialysis catheter. on IV abx labs noted seen by ortho and planned for washout of septic joint (2) Malnutrition Assessment & Plan: DAILY ESTIMATED NEEDS: Needs based on Wounds, DM, ESRD+ HD/ 36.4kg 35-40 kcals/kg 1641-7149 total kcals 1.5-2.0 g protein/kg 55-73 g total protein 20-25 mL/kg 728-910 total fluid mLs NUTRITION DIAGNOSIS: * Increased kcal and protein needs r/t wound healing, underweight status, HD needs as evidenced by stage 4 wound at rt trochanter, pt is underweight per guidelines, generalized moderate wasting, ESRD, now on HD. * Swallowing and chewing difficulty R/T dysphagia, edentulous status as evidenced by pt on pureed moist texture, NTL diet. CURRENT DIET:Renal, pureed moist w/ NTL PO DIET RECOMMENDATIONS: Maintain RENAL DIET (texture per CHEMICAL HANDLER or as tolerated) ADDITIONAL RECOMMENDATIONS: 1) Calibrated bed scale wt for accurate CBW -> daily wt monitoring 2) WOUND CARE: add Nephrovite x 1, Balta 1pkt BID 3) Monitor BGs, need for carb controlled diet, hypoglycemics (h/o DM) 4) 4oz Nepro TID w/ meals 5) Monitor lytes closely (3) Wound, open, hip or thigh with complication Assessment & Plan: history of prior large debridement and evacuation of abscess in hip. since been healing slow but well last admission much improved now with continued improvement. apply hydrogel and gauze, cover with foam dressing, do daily and prn will follow with recs thank you (4) Abscess of right hip Camilo James Feb 13, 2019 11:30
--- NOTE | 2019-02-13 11:55 | General Progress Note ---
Assessment/Plan Problem List: (1) Septic arthritis ICD Codes: M00.9 - Pyogenic arthritis, unspecified SNOMED: 738004208 (2) Diabetes mellitus ICD Codes: E11.9 - Type 2 diabetes mellitus without complications SNOMED: 83248259 (3) Malnutrition ICD Codes: E46 - Unspecified protein-calorie malnutrition SNOMED: 24698569 (4) ESRD (end stage renal disease) ICD Codes: N18.6 - End stage renal disease SNOMED: 85069445 (5) Staphylococcus aureus bacteremia ICD Codes: R78.81 - Bacteremia SNOMED: 844506657 Status: stable, progressing Assessment/Plan: iv abx follow up cultures ortho eval appreciated HD per renal anxiolytics stable for ID perioperative minimally elevated Subjective ROS Limited/Unobtainable: No Constitutional: Reports: malaise, weakness HEENT: Reports: no symptoms Cardiovascular: Reports: no symptoms Respiratory: Reports: no symptoms Gastrointestinal/Abdominal: Reports: no symptoms Genitourinary: Reports: no symptoms Neurologic/Psychiatric: Reports: no symptoms Endocrine: Reports: no symptoms Hematologic/Lymphatic: Reports: anemia Allergies: Coded Allergies: No Known Allergies (Unverified , 11/12/18) All Systems: reviewed and negative except above Subjective no events. w/o complaints. Ct with +shoulder fluid collection. on iv abx. ortho input appreciated. Objective Last 24 Hour Vital Signs Date Time Temp Pulse Resp B/P (MAP) Pulse Ox O2 Delivery O2 Flow Rate FiO2 02/13/19 09:18 92 150/87 02/13/19 09:18 92 150/87 02/13/19 09:00 Room Air 02/13/19 08:00 97.3 92 19 142/78 (99) 98 02/13/19 04:00 98.5 92 20 150/87 (108) 96 02/13/19 00:00 97.8 76 17 147/72 (97) 97 02/12/19 21:00 Room Air 02/12/19 20:30 77 154/74 02/12/19 20:00 98.1 80 18 154/74 (100) 99 02/12/19 18:19 73 151/78 02/12/19 16:00 97.8 87 18 151/77 (101) 95 02/12/19 12:00 99.0 80 18 137/75 (95) 95 Intake and Output 02/12/19 02/13/19 19:00 07:00 Intake Total 360 ml 250 ml Balance 360 ml 250 ml Intake Oral 360 ml 250 ml # Voids 5 4 # Bowel Movements 1 Height (Feet): 5 Height (Inches): 2.00 Weight (Pounds): 97 General Appearance: WD/WN, alert, confused Neck: supple Cardiovascular: normal rate, regular rhythm Respiratory/Chest: chest wall non-tender, lungs clear, normal breath sounds, no respiratory distress Abdomen: normal bowel sounds, non tender, soft, no organomegaly, abnormal bowel sounds Edema: no edema noted Arm (L), no edema noted Arm (R), no edema noted Leg (L), no edema noted Leg (R), no edema noted Pedal (L), no edema noted Pedal (R), no edema noted Generalized Nate Beltran MD Feb 13, 2019 11:55
[2019-02-13] MEDS ORDERED: Bacitracin 50000 Units Vial ONE (12:47)
--- NOTE | 2019-02-13 12:50 | NUR ---
NURSE NOTES: Patient is off the unit for the procedure in stable condition. RN made Dr. murguia aware of consent for the procedure. Dr. Murguia will put notes to override of lack of consent since family can not be reached.
--- NOTE | 2019-02-13 12:50 | Pre-Procedure Note/Attestation ---
Pre-Procedure Note/Attestation Complete Prior to Procedure Planned Procedure: right Procedure Narrative: Right shoulder abscess irrigation and debridement. Indications for Procedure Pre-Operative Diagnosis: Right shoulder abscess Attestation I attest that I discussed the nature of the procedure; its benefits; risks and complications; and alternatives (and the risks and benefits of such alternatives ), prior to the procedure, with the patient (or the patient's legal bilingual inside sales representative). I attest that, if there was a reasonable possibility of needing a blood transfusion, the patient (or the patient's legal bilingual inside sales representative) was given the [facility] standardized written summary, pursuant to the Carlos Halifax Blood Safety Act ([place] Health and Safety Code # 1645, as amended). I attest that I re-evaluated the patient just prior to the surgery and that there has been no change in the patient's H&P, except as documented below: Abel Guzman MD Feb 13, 2019 12:50
[2019-02-13] MEDS ORDERED: fentaNYL 100 mcg/2 mL IV ONE (13:12)
[2019-02-13] MEDS ORDERED: Lidocaine 1% MPF 10mg/ml 5ml ONE (13:16)
[2019-02-13] MEDS ORDERED: Propofol 200mg/20ml IV ONE (13:16)
[2019-02-13] MEDS ORDERED: Bacitracin 50000 Units Vial IRRIG ONE (13:20)
[2019-02-13] MEDS ORDERED: NS Irrig 4000ml IRRIG ONE (13:20)
[2019-02-13] MEDS ORDERED: NS Irrig 2000ml IRRIG ONE (13:20)
--- NOTE | 2019-02-13 13:26 | Anethesia Preoperative Eval ---
Anesthesia Pre-op PMH/ROS General Date of Evaluation: Feb 13, 2019 Time of Evaluation: 12:30 ASA Score: ASA 4 Mallampati Score Class I : Soft palate, uvula, fauces, pillars visible Class II: Soft palate, uvula, fauces visible Class III: Soft palate, base of uvula visible Class IV: Only hard plate visible Mallampati Classification: Class II Allergies: Coded Allergies: No Known Allergies (Unverified , 11/12/18) Patient NPO?: Yes NPO Date: Feb 13, 2019 NPO Time: 0000 Anesthesia Pre-op Phys. Exam Physician Exam Last Vital Signs Date Time Temp Pulse Resp B/P (MAP) Pulse Ox O2 Delivery O2 Flow Rate FiO2 02/13/19 09:18 92 150/87 02/13/19 09:00 Room Air 02/13/19 08:00 97.3 19 98 Airway Exam Mallampati Score: Class II Joni Soto MD Feb 13, 2019 13:26
--- NOTE | 2019-02-13 13:27 | Immediate Post-Op Evaluation ---
Immediate Post-Op Evalulation Immediate Post-Op Evalulation Procedure: right shoulder IND Date of Evaluation: Feb 13, 2019 Time of Evaluation: 14:00 Nausea: No Vomiting: No Joni Soto MD Feb 13, 2019 13:27
[2019-02-13] MEDS ORDERED: fentaNYL 100 mcg/2 mL IV PRN (13:30)
--- NOTE | 2019-02-13 13:43 | Orthopedic Progress Note ---
Orthopedic - Progress Note Subjective Symptoms: c/o shoulder pain Additional Comments Non communicative Objective Last 24 Hour Vital Signs Date Time Temp Pulse Resp B/P (MAP) Pulse Ox O2 Delivery O2 Flow Rate FiO2 02/13/19 12:00 97.2 86 20 159/98 (118) 98 02/13/19 09:18 92 150/87 02/13/19 09:18 92 150/87 02/13/19 09:00 Room Air 02/13/19 08:00 97.3 92 19 142/78 (99) 98 02/13/19 04:00 98.5 92 20 150/87 (108) 96 02/13/19 00:00 97.8 76 17 147/72 (97) 97 02/12/19 21:00 Room Air 02/12/19 20:30 77 154/74 02/12/19 20:00 98.1 80 18 154/74 (100) 99 02/12/19 18:19 73 151/78 02/12/19 16:00 97.8 87 18 151/77 (101) 95 Intake and Output 02/12/19 02/13/19 18:59 06:59 Intake Total 360 ml 250 ml Balance 360 ml 250 ml Intake Oral 360 ml 250 ml # Voids 5 4 # Bowel Movements 1 Assessment Post-op Diagnosis Right shoulder abscess Plan Additional Comments Because of the urgent nature of her surgical needs, we will proceed to the operating room for abscess irrigation and debridement and wound VAC application. Abel Guzman MD Feb 13, 2019 13:43
--- NOTE | 2019-02-13 13:43 | Brief Operative Note ---
Immediate Post Operative Note Operative Note Pre-op Diagnosis: Right shoulder abscess Procedure: Right shoulder abscess I and D and wound VAC application. Post-op Diagnosis: Right shoulder abscess Post-op Diagnosis: same as pre-op Surgeon: Thomas Anesthesia: general Specimen: yes Complications: none Condition: stable Fluids: 100 ml Estimated Blood Loss: minimal Drains: wound vac Implant(s) used?: No Abel Guzman MD Feb 13, 2019 13:43
--- NOTE | 2019-02-13 15:10 | NUR ---
NURSE NOTES: Patient came back form the procedure. Breathing is even and unlabored. No s/s of pain or discomfort per FLACC pain scale. Noted with wound vac on right shoulder on low pressure setting with 125 with sero drainage. Wound vac is intact, no leaking @ this time. Will continue to monitor. New IV on right hand G24.
--- NOTE | 2019-02-13 16:45 | Operative Note - Dictated ---
DATE OF OPERATION: 02/13/2019 SURGEON: Abel Guzman M.D. WHEEL ROLLER: None. ANESTHESIA: General. COMPLICATIONS: None. ANTIBIOTICS: Ancef. PREOPERATIVE DIAGNOSIS: Right shoulder subdeltoid abscess. POSTOPERATIVE DIAGNOSIS: Right shoulder subdeltoid abscess. PROCEDURE PERFORMED: 1. Right shoulder subdeltoid abscess irrigation and debridement. 2. Right shoulder subdeltoid abscess wound VAC application. 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 She developed systemic bacteremia, which developed into right shoulder abscess. An MRI/CT scan confirmed the diagnosis. No family could be contacted to explain all risks, benefits, and alternatives. Because of the urgent nature of her medical condition, surgery will be planned. Risks include, but are not limited to, bleeding, infection, neurovascular injury, need for additional surgical intervention, failure of pain relief, arthrofibrosis, complications of anesthesia, blood clots, stroke, heart attack, and potentially . These risks exist along with numerous others, including reoperation, and consent was implied because of the urgency of her condition. PROCEDURE IN DETAIL: The skin was brought into the operating room, placed supine on the operating table. The right shoulder was correctly verified for surgical site and prepped and draped in standard sterile fashion. Exam revealed a large ballotable abscess measuring approximately 6 centimeters in diameter. A longitudinal incision was created and once the deltoid was split in line with the incision, approximately 30 mL of purulent fluid was evacuated. Curette was used to roughen the edges of the abscess. Digital inspection revealed no extension into the joint and the rotator cuff remained intact. Six liters of antibiotic impregnated fluid were copiously irrigated throughout the wound and finger sweep revealed no retained foreign body or debris. Wound VAC was then secured into position and placed on continuous suction with no leaks. She tolerated the procedure well. Cultures were sent. There were no complications. I attest I performed the entire operation. She was transferred to recovery in good condition. Abel Guzman M.D. DR: ALICIA JOB#: [id number] CC:
--- NOTE | 2019-02-13 17:02 | Nephrology Progress Note ---
Assessment/Plan Problem List: (1) ESRD (end stage renal disease) (2) Malnutrition (3) Septic arthritis Assessment: right shoulder (4) Diabetes mellitus (5) Anemia in CKD (chronic kidney disease) Assessment (1) ESRD (end stage renal disease) (2) Diabetes mellitus (3) Failure to thrive (0-17) severe malnutrition (4) Anemia in CKD (chronic kidney disease) (5) Hypertensive kidney disease (6) h/o Staphylococcus aureus bacteremia - septic shoulder . h/o right hip abcess Plan check labs- keep bp and BS in check HD as needed Inflammatory markers vancomycin- monitor levels ortho intervention for I&D per orders Subjective ROS Limited/Unobtainable: No Constitutional: Reports: malaise Objective Objective Last 24 Hour Vital Signs Date Time Temp Pulse Resp B/P (MAP) Pulse Ox O2 Delivery O2 Flow Rate FiO2 02/13/19 15:10 97.6 76 20 169/84 (112) 100 02/13/19 14:50 97.9 72 17 169/80 100 Nasal Cannula 3 02/13/19 14:45 73 22 163/71 100 Nasal Cannula 3 02/13/19 14:30 71 19 169/82 100 Nasal Cannula 3 02/13/19 14:15 92 19 163/80 100 Nasal Cannula 3 02/13/19 14:05 72 15 167/79 100 Nasal Cannula 3 02/13/19 13:55 92 22 166/86 100 Nasal Cannula 3 02/13/19 13:50 86 21 163/74 100 Nasal Cannula 3 02/13/19 13:50 97.2 68 12 149/70 98 Room Air 02/13/19 12:00 97.2 86 20 159/98 (118) 98 02/13/19 09:18 92 150/87 02/13/19 09:18 92 150/87 02/13/19 09:00 Room Air 02/13/19 08:00 97.3 92 19 142/78 (99) 98 02/13/19 04:00 98.5 92 20 150/87 (108) 96 02/13/19 00:00 97.8 76 17 147/72 (97) 97 02/12/19 21:00 Room Air 02/12/19 20:30 77 154/74 02/12/19 20:00 98.1 80 18 154/74 (100) 99 02/12/19 18:19 73 151/78 Intake and Output 02/12/19 02/13/19 18:59 06:59 Intake Total 360 ml 250 ml Balance 360 ml 250 ml Intake Oral 360 ml 250 ml # Voids 5 4 # Bowel Movements 1 Height (Feet): 5 Height (Inches): 1.00 Weight (Pounds): 97 General Appearance: no apparent distress, lethargic Cardiovascular: normal rate Respiratory/Chest: decreased breath sounds Abdomen: soft William Blackwood MD Feb 13, 2019 17:02
--- NOTE | 2019-02-13 17:39 | NUR ---
NURSE NOTES: patient is awake and RN observed patient grabbing her perma cath tubing and wound vac tubing. Patient is confused and RN explained to the patient the risks and benefits but patient is unable to comprehend due to patient's impaired cognition and patient keeps on grabbing the tubing. RN informed Dr. Beltran and received order to apply bilateral soft wrist restraints. Will continue to monitor.
--- NOTE | 2019-02-13 18:44 | NUR ---
NURSE NOTES: Patient is resting in bed, Wound vac is draining. No swelling skin break or bruises on bilateral wrist and peripheral pulses present.
--- NOTE | 2019-02-13 19:37 | NUR ---
HAND-OFF: Report given to
--- NOTE | 2019-02-13 20:04 | NUR ---
NURSE NOTES: Patient in bed, awake, confused. Bilateral soft wrist restraints noted. Skin is warm and dry, dressings are intact. Noted with right chest permacath. Noted with right shoulder wound vac, continuous suction. Bed in low and locked position. No s/s of pain or discomfort noted. Abdomen is soft and non distended. Call light is at bedside.
[2019-02-14] VITALS: BP 150/99
[2019-02-14] MEDS: Cefepime HCl 1 GM in D5W 55 ML IVPB SCH (00:51)
--- NOTE | 2019-02-14 01:00 | NUR ---
NURSE NOTES: Wound vac malfunction, obstruction noted. Enforced with suresite.
[2019-02-14 04:00] VITALS: BP 156/87
[2019-02-14] MEDS: Liothyronine 5mcg tab ORAL SCH (06:12)
--- NOTE | 2019-02-14 06:21 | NUR ---
NURSE NOTES: Facial grimace noted, given PRN pain medication as ordered.
--- NOTE | 2019-02-14 07:20 | NUR ---
HAND-OFF: Report given to SANYA Oglesby.
--- NOTE | 2019-02-14 07:42 | General Progress Note ---
Assessment/Plan Problem List: (1) Septic arthritis ICD Codes: M00.9 - Pyogenic arthritis, unspecified SNOMED: 518442378 (2) Diabetes mellitus ICD Codes: E11.9 - Type 2 diabetes mellitus without complications SNOMED: 31396723 (3) Malnutrition ICD Codes: E46 - Unspecified protein-calorie malnutrition SNOMED: 03009153 (4) ESRD (end stage renal disease) ICD Codes: N18.6 - End stage renal disease SNOMED: 50154317 (5) Staphylococcus aureus bacteremia ICD Codes: R78.81 - Bacteremia SNOMED: 732110423 Status: stable, progressing Assessment/Plan: iv abx follow up cultures ortho eval appreciated HD per renal anxiolytics wound vac pain rx restraints for safety- pulling at lines Subjective ROS Limited/Unobtainable: No Constitutional: Reports: no symptoms HEENT: Reports: no symptoms Cardiovascular: Reports: no symptoms Respiratory: Reports: no symptoms Gastrointestinal/Abdominal: Reports: no symptoms Genitourinary: Reports: no symptoms Neurologic/Psychiatric: Reports: anxiety, emotional problems Endocrine: Reports: no symptoms Hematologic/Lymphatic: Reports: anemia Allergies: Coded Allergies: No Known Allergies (Unverified , 11/12/18) All Systems: reviewed and negative except above Subjective s/p I and D shoulder abscess. has wound vac. no fevers. intermittent agitation. son finally called back late yesterday. was in agreement with surgery Objective Last 24 Hour Vital Signs Date Time Temp Pulse Resp B/P (MAP) Pulse Ox O2 Delivery O2 Flow Rate FiO2 02/14/19 04:00 98.2 83 20 156/87 (110) 99 02/14/19 00:00 97.4 80 20 150/99 (116) 99 02/13/19 21:00 98.3 86 18 158/79 (105) 97 02/13/19 21:00 Room Air 02/13/19 20:15 86 158/79 02/13/19 17:55 97.8 79 18 146/72 (96) 99 02/13/19 17:23 79 146/72 02/13/19 16:55 97.5 76 18 145/72 (96) 99 02/13/19 15:55 97.7 79 18 159/72 (101) 99 02/13/19 15:40 97.8 76 20 161/74 (103) 99 02/13/19 15:25 97.6 78 20 168/77 (107) 100 02/13/19 15:10 97.6 76 20 169/84 (112) 100 02/13/19 14:50 97.9 72 17 169/80 100 Nasal Cannula 3 02/13/19 14:45 73 22 163/71 100 Nasal Cannula 3 02/13/19 14:30 71 19 169/82 100 Nasal Cannula 3 02/13/19 14:15 92 19 163/80 100 Nasal Cannula 3 02/13/19 14:05 72 15 167/79 100 Nasal Cannula 3 02/13/19 13:55 92 22 166/86 100 Nasal Cannula 3 02/13/19 13:50 86 21 163/74 100 Nasal Cannula 3 02/13/19 13:50 97.2 68 12 149/70 98 Room Air 02/13/19 12:00 97.2 86 20 159/98 (118) 98 02/13/19 09:18 92 150/87 02/13/19 09:18 92 150/87 02/13/19 09:00 Room Air 02/13/19 08:00 97.3 92 19 142/78 (99) 98 Intake and Output 02/13/19 02/14/19 19:00 07:00 Intake Total 100 ml 300 ml Output Total 85 ml 15 ml Balance 15 ml 285 ml Intake Oral 300 ml IV Total 100 ml Output Drainage Total 35 ml 15 ml Estimated Blood Loss 50 ml # Voids 2 3 Laboratory Tests 02/14/19 07:15: White Blood Count [Pending], Red Blood Count [Pending], Hemoglobin [Pending], Hematocrit [Pending], Mean Corpuscular Volume [Pending], Mean Corpuscular Hemoglobin [Pending], Mean Corpuscular Hemoglobin Concent [Pending], Red Cell Distribution Width [Pending], Platelet Count [Pending], Mean Platelet Volume [ Pending], Neutrophils (%) (Auto) [Pending], Lymphocytes (%) (Auto) [Pending], Monocytes (%) (Auto) [Pending], Eosinophils (%) (Auto) [Pending], Basophils (%) (Auto) [Pending], Erythrocyte Sedimentation Rate [Pending], Prothrombin Time [ Pending], Prothromb Time International Ratio [Pending], Activated Partial Thromboplast Time [Pending], Sodium Level [Pending], Potassium Level [Pending], Chloride Level [Pending], Carbon Dioxide Level [Pending], Blood Urea Nitrogen [ Pending], Creatinine [Pending], Estimat Glomerular Filtration Rate [Pending], Glucose Level [Pending], Calcium Level [Pending], Phosphorus Level [Pending], Magnesium Level [Pending], Total Bilirubin [Pending], Aspartate Amino Transf ( AST/SGOT) [Pending], Alanine Aminotransferase (ALT/SGPT) [Pending], Alkaline Phosphatase [Pending], C-Reactive Protein, Quantitative [Pending], Total Protein [Pending], Albumin [Pending], Globulin [Pending], Random Vancomycin Level [Pending] Height (Feet): 5 Height (Inches): 1.00 Weight (Pounds): 97 Objective General Appearance: WD/WN, alert, confused Neck: supple Cardiovascular: normal rate, regular rhythm Respiratory/Chest: chest wall non-tender, lungs clear, normal breath sounds, no respiratory distress Abdomen: normal bowel sounds, non tender, soft, no organomegaly, abnormal bowel sounds Edema: no edema noted Arm (L), no edema noted Arm (R), no edema noted Leg (L), no edema noted Leg (R), no edema noted Pedal (L), no edema noted Pedal (R), no edema noted Generalized Nate Beltran MD Feb 14, 2019 07:42
[2019-02-14 07:46] LABS: BASOPHILS % (AUTO) 0.8 % (0.0-2.0); EOSINOPHILS % (AUTO) 1.1 % (0.0-3.0); HEMATOCRIT 25.4 % (37.0-47.0); HEMOGLOBIN 8.1 G/DL (12.0-16.0); LYMPHOCYTES % (AUTO) 32.6 % (20.0-45.0); MEAN CORPUSCULAR VOLUME 88 FL (80-99); MONOCYTES % (AUTO) 4.6 % (1.0-10.0); NEUTROPHILS % (AUTO) 60.9 % (45.0-75.0); PLATELET COUNT 718 K/UL (150-450); RED CELL DISTRIBUTION WIDTH 14.7 % (11.6-14.8); WHITE BLOOD COUNT 9.7 K/UL (4.8-10.8)
[2019-02-14 07:48] LABS: INR 1.1 (0.9-1.1)
[2019-02-14 08:00] VITALS: BP 166/82
--- NOTE | 2019-02-14 08:09 | NUR ---
NURSE NOTES: received pt in bed, asleep, with bilateral soft wrist restraints. Skin intact under the restraints, no sign of pain or discomfort. Call light within easy reach, siderails up x3, bed locked at the lowest position possible. Wound vac on 125mmHg connected to the right shoulder. Right hand IV access, saline locked.
[2019-02-14 08:13] LABS: ALANINE AMINOTRANSFERASE 9 U/L (12-78); ALBUMIN 1.6 G/DL (3.4-5.0); ALBUMIN/GLOBULIN RATIO 0.3 (1.0-2.7); ALKALINE PHOSPHATASE 100 U/L (46-116); ANION GAP 15 mmol/L (5-15); ASPARTATE AMINO TRANSFERASE 14 U/L (15-37); BILIRUBIN,TOTAL 0.5 MG/DL (0.2-1.0); BLOOD UREA NITROGEN 72 mg/dL (7-18); CALCIUM 9.5 MG/DL (8.5-10.1); CARBON DIOXIDE 22 MMOL/L (21-32); CHLORIDE 100 MMOL/L (98-107); CREATININE 5.6 MG/DL (0.55-1.30); POTASSIUM 5.4 MMOL/L (3.5-5.1); SODIUM 137 MMOL/L (136-145)
[2019-02-14 08:33] LABS: PHOSPHORUS 9.7 MG/DL (2.5-4.9)
[2019-02-14] MEDS: Heparin 5000 units/ml inj SUBQ SCH ×2 (08:33→21:16)
[2019-02-14] MEDS: OLANZapine 2.5mg tab ORAL SCH ×3 (08:53→21:13)
--- NOTE | 2019-02-14 10:12 | Nephrology Progress Note ---
Assessment/Plan Problem List: (1) ESRD (end stage renal disease) (2) Malnutrition (3) Septic arthritis Assessment: right shoulder (4) Diabetes mellitus (5) Anemia in CKD (chronic kidney disease) Assessment (1) ESRD (end stage renal disease) (2) Diabetes mellitus (3) Failure to thrive (0-17) severe malnutrition (4) Anemia in CKD (chronic kidney disease) (5) Hypertensive kidney disease (6) h/o Staphylococcus aureus bacteremia - septic shoulder . h/o right hip abcess Plan Check labs- keep bp and BS in check HD today 02/14 vancomycin- monitor levels per ID ortho intervention for I&D done per orders Subjective ROS Limited/Unobtainable: No Constitutional: Reports: malaise Objective Objective Last 24 Hour Vital Signs Date Time Temp Pulse Resp B/P (MAP) Pulse Ox O2 Delivery O2 Flow Rate FiO2 02/14/19 08:55 89 166/82 02/14/19 08:54 166/82 02/14/19 08:54 89 166/82 02/14/19 08:00 98.8 89 20 166/82 (110) 97 02/14/19 04:00 98.2 83 20 156/87 (110) 99 02/14/19 00:00 97.4 80 20 150/99 (116) 99 02/13/19 21:00 98.3 86 18 158/79 (105) 97 02/13/19 21:00 Room Air 02/13/19 20:15 86 158/79 02/13/19 17:55 97.8 79 18 146/72 (96) 99 02/13/19 17:23 79 146/72 02/13/19 16:55 97.5 76 18 145/72 (96) 99 02/13/19 15:55 97.7 79 18 159/72 (101) 99 02/13/19 15:40 97.8 76 20 161/74 (103) 99 02/13/19 15:25 97.6 78 20 168/77 (107) 100 02/13/19 15:10 97.6 76 20 169/84 (112) 100 02/13/19 14:50 97.9 72 17 169/80 100 Nasal Cannula 3 02/13/19 14:45 73 22 163/71 100 Nasal Cannula 3 02/13/19 14:30 71 19 169/82 100 Nasal Cannula 3 02/13/19 14:15 92 19 163/80 100 Nasal Cannula 3 02/13/19 14:05 72 15 167/79 100 Nasal Cannula 3 02/13/19 13:55 92 22 166/86 100 Nasal Cannula 3 02/13/19 13:50 86 21 163/74 100 Nasal Cannula 3 02/13/19 13:50 97.2 68 12 149/70 98 Room Air 02/13/19 12:00 97.2 86 20 159/98 (118) 98 Intake and Output 02/13/19 02/14/19 19:00 07:00 Intake Total 100 ml 300 ml Output Total 85 ml 15 ml Balance 15 ml 285 ml Intake Oral 300 ml IV Total 100 ml Output Drainage Total 35 ml 15 ml Estimated Blood Loss 50 ml # Voids 2 3 Laboratory Tests 02/14/19 07:15: White Blood Count 9.7, Red Blood Count 2.90L, Hemoglobin 8.1L, Hematocrit 25.4L , Mean Corpuscular Volume 88, Mean Corpuscular Hemoglobin 27.8, Mean Corpuscular Hemoglobin Concent 31.7L, Red Cell Distribution Width 14.7, Platelet Count 718H, Mean Platelet Volume 4.2L, Neutrophils (%) (Auto) 60.9, Lymphocytes (%) (Auto) 32.6, Monocytes (%) (Auto) 4.6, Eosinophils (%) (Auto) 1.1, Basophils (%) (Auto) 0.8, Erythrocyte Sedimentation Rate 122H, Prothrombin Time 11.2, Prothromb Time International Ratio 1.1, Activated Partial Thromboplast Time 33, Sodium Level 137, Potassium Level 5.4H, Chloride Level 100 , Carbon Dioxide Level 22, Anion Gap 15, Blood Urea Nitrogen 72H, Creatinine 5.6H, Estimat Glomerular Filtration Rate , Glucose Level 187H, Calcium Level 9.5 , Phosphorus Level 9.7H, Magnesium Level 2.1, Total Bilirubin 0.5, Aspartate Amino Transf (AST/SGOT) 14L, Alanine Aminotransferase (ALT/SGPT) 9L, Alkaline Phosphatase 100, C-Reactive Protein, Quantitative 22.1H, Total Protein 7.7, Albumin 1.6L, Globulin 6.1, Albumin/Globulin Ratio 0.3L, Random Vancomycin Level 19.0 Height (Feet): 5 Height (Inches): 1.00 Weight (Pounds): 97 General Appearance: no apparent distress Cardiovascular: tachycardia Respiratory/Chest: decreased breath sounds Abdomen: soft Objective no change William Blackwood MD Feb 14, 2019 10:12
--- NOTE | 2019-02-14 11:08 | Infectious Diseases Prog Note ---
"Assessment/Plan Assessment/Plan antibiotics : vancomycin, cefepime A 1. right shoulder septic arthritis | subdeltoid abscess s/p i and d 2. hypertension 3. renal failure on HD 4. dementia 5. schizophrenia 6. leucocytosis resolved P 1. continue iv vancomycin, cefepime 2. will follow up cultures Subjective Constitutional: Denies: fever, chills Respiratory: Denies: shortness of breath, dry cough Gastrointestinal/Abdominal: Denies: nausea, vomiting, diarrhea Musculoskeletal: Denies: pain Allergies: Coded Allergies: No Known Allergies (Unverified , 11/12/18) Objective Vital Signs Last 24 Hour Vital Signs Date Time Temp Pulse Resp B/P (MAP) Pulse Ox O2 Delivery O2 Flow Rate FiO2 02/14/19 08:55 89 166/82 02/14/19 08:54 166/82 02/14/19 08:54 89 166/82 02/14/19 08:00 98.8 89 20 166/82 (110) 97 02/14/19 04:00 98.2 83 20 156/87 (110) 99 02/14/19 00:00 97.4 80 20 150/99 (116) 99 02/13/19 21:00 98.3 86 18 158/79 (105) 97 02/13/19 21:00 Room Air 02/13/19 20:15 86 158/79 02/13/19 17:55 97.8 79 18 146/72 (96) 99 02/13/19 17:23 79 146/72 02/13/19 16:55 97.5 76 18 145/72 (96) 99 02/13/19 15:55 97.7 79 18 159/72 (101) 99 02/13/19 15:40 97.8 76 20 161/74 (103) 99 02/13/19 15:25 97.6 78 20 168/77 (107) 100 02/13/19 15:10 97.6 76 20 169/84 (112) 100 02/13/19 14:50 97.9 72 17 169/80 100 Nasal Cannula 3 02/13/19 14:45 73 22 163/71 100 Nasal Cannula 3 02/13/19 14:30 71 19 169/82 100 Nasal Cannula 3 02/13/19 14:15 92 19 163/80 100 Nasal Cannula 3 02/13/19 14:05 72 15 167/79 100 Nasal Cannula 3 02/13/19 13:55 92 22 166/86 100 Nasal Cannula 3 02/13/19 13:50 86 21 163/74 100 Nasal Cannula 3 02/13/19 13:50 97.2 68 12 149/70 98 Room Air 02/13/19 12:00 97.2 86 20 159/98 (118) 98 Height (Feet): 5 Height (Inches): 1.00 Weight (Pounds): 97 Respiratory/Chest: lungs clear Cardiovascular: normal rate, regular rhythm, no gallop/murmur Abdomen: soft, non tender Extremities: no edema, other - right subclavian catheter Microbiology Date/Time Source Procedure Growth Status 02/13/19 13:13 Shoulder Right Gram Stain - Final Resulted 02/13/19 13:13 Shoulder Right Aerobic Culture - Preliminary NO GROWTH Resulted 02/13/19 13:13 Shoulder Right Anaerobic Culture Pending Resulted Laboratory Tests Test 02/14/19 07:15 White Blood Count 9.7 K/UL (4.8-10.8) Red Blood Count 2.90 M/UL (4.20-5.40) L Hemoglobin 8.1 G/DL (12.0-16.0) L Hematocrit 25.4 % (37.0-47.0) L Mean Corpuscular Volume 88 FL (80-99) Mean Corpuscular Hemoglobin 27.8 PG (27.0-31.0) Mean Corpuscular Hemoglobin Concent 31.7 G/DL (32.0-36.0) L Red Cell Distribution Width 14.7 % (11.6-14.8) Platelet Count 718 K/UL (150-450) H Mean Platelet Volume 4.2 FL (6.5-10.1) L Neutrophils (%) (Auto) 60.9 % (45.0-75.0) Lymphocytes (%) (Auto) 32.6 % (20.0-45.0) Monocytes (%) (Auto) 4.6 % (1.0-10.0) Eosinophils (%) (Auto) 1.1 % (0.0-3.0) Basophils (%) (Auto) 0.8 % (0.0-2.0) Erythrocyte Sedimentation Rate 122 MM/HR (0-30) H Prothrombin Time 11.2 SEC (9.30-11.50) Prothromb Time International Ratio 1.1 (0.9-1.1) Activated Partial Thromboplast Time 33 SEC (23-33) Sodium Level 137 MMOL/L (136-145) Potassium Level 5.4 MMOL/L (3.5-5.1) H Chloride Level 100 MMOL/L (98-107) Carbon Dioxide Level 22 MMOL/L (21-32) Anion Gap 15 mmol/L (5-15) Blood Urea Nitrogen 72 mg/dL (7-18) H Creatinine 5.6 MG/DL (0.55-1.30) H Estimat Glomerular Filtration Rate mL/min (>60) Glucose Level 187 MG/DL (74-106) H Calcium Level 9.5 MG/DL (8.5-10.1) Phosphorus Level 9.7 MG/DL (2.5-4.9) H Magnesium Level 2.1 MG/DL (1.8-2.4) Total Bilirubin 0.5 MG/DL (0.2-1.0) Aspartate Amino Transf (AST/SGOT) 14 U/L (15-37) L Alanine Aminotransferase (ALT/SGPT) 9 U/L (12-78) L Alkaline Phosphatase 100 U/L (46-116) C-Reactive Protein, Quantitative 22.1 mg/dL (0.00-0.90) H Total Protein 7.7 G/DL (6.4-8.2) Albumin 1.6 G/DL (3.4-5.0) L Globulin 6.1 g/dL Albumin/Globulin Ratio 0.3 (1.0-2.7) L Random Vancomycin Level 19.0 ug/mL Current Medications Medications (Trade) Dose Ordered Sig/Javier Route PRN Reason Start Time Stop Time Status Last Admin Dose Admin Acetaminophen (Tylenol) 650 mg Q4H PRN ORAL Mild Pain/Temp > 100.5 02/11/19 00:45 03/13/19 00:44 02/14/19 06:14 Acetaminophen/ Hydrocodone Bitart ([place] 10325) 1 tab Q4H PRN ORAL For Pain 02/11/19 13:45 02/18/19 13:44 02/11/19 23:58 Amlodipine Besylate (Norvasc) 5 mg BID ORAL 02/11/19 09:00 03/13/19 08:59 02/14/19 08:54 Carvedilol (Coreg) 3.125 mg EVERY 12 HOURS ORAL 02/11/19 09:00 03/13/19 08:59 02/14/19 08:55 Cefepime HCl 1 gm/ Dextrose 55 ml @ 110 mls/hr Q24H IVPB 02/11/19 00:45 02/18/19 00:44 02/14/19 00:51 Clonidine HCl (Catapres TTS-1) 1 patch QWEEK TDERMAL 02/14/19 09:00 03/16/19 08:59 02/14/19 08:54 Epoetin Thomas (Epoetin Thomas(ESRD on dialysis)) 10,000 unit THU-THU-[id number] SUBQ 02/14/19 21:00 03/16/19 20:59 Heparin Sodium (Porcine) (Heparin 5000 units/ml) 5,000 units EVERY 12 HOURS SUBQ 02/11/19 21:00 03/13/19 20:59 02/12/19 20:26 Levothyroxine Sodium (Synthroid) 50 mcg DAILY@0630 ORAL 02/11/19 06:30 03/13/19 06:29 02/14/19 06:12 Liothyronine Sodium (Cytomel) 5 mcg ACBREAKFAST ORAL 02/13/19 09:00 03/15/19 08:59 02/14/19 06:12 Olanzapine (ZyPREXA) 2.5 mg BID ORAL 02/11/19 00:45 03/13/19 00:44 02/14/19 08:53 Olanzapine (ZyPREXA) 2.5 mg QHS ORAL 02/11/19 21:00 03/13/19 20:59 02/13/19 20:15 Pantoprazole (Protonix) 40 mg DAILY ORAL 02/11/19 09:00 03/13/19 08:59 02/14/19 08:54 Sevelamer Carbonate (Renvela) 800 mg THREE TIMES A DAY ORAL 02/11/19 09:00 03/13/19 08:59 02/14/19 08:54 Vancomycin HCl (Vanco rx to dose) 1 ea DAILY PRN MISC Per rx protocol 02/11/19 00:45 03/13/19 00:44 Melissa Solares MD Feb 14, 2019 11:08"
[2019-02-14 12:00] VITALS: BP 160/84
--- NOTE | 2019-02-14 12:56 | NUR ---
NURSE NOTES: Dr. Guzman contacted to inquire about days to change wound vac. Per Dr. Guzman, wound vac should be changed 2 times/week.
--- NOTE | 2019-02-14 13:31 | Surgery Progress Note ---
Surgery Progress Note Subjective Additional Comments s/p right shoulder I&D with washout and vac placement otherwise stable vac functional Objective Last 24 Hour Vital Signs Date Time Temp Pulse Resp B/P (MAP) Pulse Ox O2 Delivery O2 Flow Rate FiO2 02/14/19 12:00 97.9 87 20 160/84 (109) 96 02/14/19 09:00 Room Air 02/14/19 08:55 89 166/82 02/14/19 08:54 166/82 02/14/19 08:54 89 166/82 02/14/19 08:00 98.8 89 20 166/82 (110) 97 02/14/19 04:00 98.2 83 20 156/87 (110) 99 02/14/19 00:00 97.4 80 20 150/99 (116) 99 02/13/19 21:00 98.3 86 18 158/79 (105) 97 02/13/19 21:00 Room Air 02/13/19 20:15 86 158/79 02/13/19 17:55 97.8 79 18 146/72 (96) 99 02/13/19 17:23 79 146/72 02/13/19 16:55 97.5 76 18 145/72 (96) 99 02/13/19 15:55 97.7 79 18 159/72 (101) 99 02/13/19 15:40 97.8 76 20 161/74 (103) 99 02/13/19 15:25 97.6 78 20 168/77 (107) 100 02/13/19 15:10 97.6 76 20 169/84 (112) 100 02/13/19 14:50 97.9 72 17 169/80 100 Nasal Cannula 3 02/13/19 14:45 73 22 163/71 100 Nasal Cannula 3 02/13/19 14:30 71 19 169/82 100 Nasal Cannula 3 02/13/19 14:15 92 19 163/80 100 Nasal Cannula 3 02/13/19 14:05 72 15 167/79 100 Nasal Cannula 3 02/13/19 13:55 92 22 166/86 100 Nasal Cannula 3 02/13/19 13:50 86 21 163/74 100 Nasal Cannula 3 02/13/19 13:50 97.2 68 12 149/70 98 Room Air I&O Intake and Output 02/13/19 02/14/19 19:00 07:00 Intake Total 100 ml 300 ml Output Total 85 ml 15 ml Balance 15 ml 285 ml Intake Oral 300 ml IV Total 100 ml Output Drainage Total 35 ml 15 ml Estimated Blood Loss 50 ml # Voids 2 3 Dressing: dry Wound: other Drains: wound vac Cardiovascular: RSR Respiratory: clear Abdomen: soft, non-tender, present bowel sounds Extremities: no cyanosis, other Laboratory Tests Test 02/14/19 07:15 White Blood Count 9.7 K/UL (4.8-10.8) Red Blood Count 2.90 M/UL (4.20-5.40) L Hemoglobin 8.1 G/DL (12.0-16.0) L Hematocrit 25.4 % (37.0-47.0) L Mean Corpuscular Volume 88 FL (80-99) Mean Corpuscular Hemoglobin 27.8 PG (27.0-31.0) Mean Corpuscular Hemoglobin Concent 31.7 G/DL (32.0-36.0) L Red Cell Distribution Width 14.7 % (11.6-14.8) Platelet Count 718 K/UL (150-450) H Mean Platelet Volume 4.2 FL (6.5-10.1) L Neutrophils (%) (Auto) 60.9 % (45.0-75.0) Lymphocytes (%) (Auto) 32.6 % (20.0-45.0) Monocytes (%) (Auto) 4.6 % (1.0-10.0) Eosinophils (%) (Auto) 1.1 % (0.0-3.0) Basophils (%) (Auto) 0.8 % (0.0-2.0) Erythrocyte Sedimentation Rate 122 MM/HR (0-30) H Prothrombin Time 11.2 SEC (9.30-11.50) Prothromb Time International Ratio 1.1 (0.9-1.1) Activated Partial Thromboplast Time 33 SEC (23-33) Sodium Level 137 MMOL/L (136-145) Potassium Level 5.4 MMOL/L (3.5-5.1) H Chloride Level 100 MMOL/L (98-107) Carbon Dioxide Level 22 MMOL/L (21-32) Anion Gap 15 mmol/L (5-15) Blood Urea Nitrogen 72 mg/dL (7-18) H Creatinine 5.6 MG/DL (0.55-1.30) H Estimat Glomerular Filtration Rate mL/min (>60) Glucose Level 187 MG/DL (74-106) H Calcium Level 9.5 MG/DL (8.5-10.1) Phosphorus Level 9.7 MG/DL (2.5-4.9) H Magnesium Level 2.1 MG/DL (1.8-2.4) Total Bilirubin 0.5 MG/DL (0.2-1.0) Aspartate Amino Transf (AST/SGOT) 14 U/L (15-37) L Alanine Aminotransferase (ALT/SGPT) 9 U/L (12-78) L Alkaline Phosphatase 100 U/L (46-116) C-Reactive Protein, Quantitative 22.1 mg/dL (0.00-0.90) H Total Protein 7.7 G/DL (6.4-8.2) Albumin 1.6 G/DL (3.4-5.0) L Globulin 6.1 g/dL Albumin/Globulin Ratio 0.3 (1.0-2.7) L Random Vancomycin Level 19.0 ug/mL Plan Problems: (1) Septic arthritis Assessment & Plan: Right subacromial/subdeltoid bursal effusion with multiple bubbles of air; In the absence of any recent surgery or other intervention, the fluid is likely infected and suspicious for abscess. Smaller glenohumeral joint effusion may be infected as well. The two spaces may communicate. Findings consistent with the given history of septic shoulder. Arthrosis of the glenohumeral joint. Right pleural effusion Old granulomatous disease Right jugular dialysis catheter. on IV abx labs noted s/p right shoulder washout and vac placement (2) Malnutrition Assessment & Plan: DAILY ESTIMATED NEEDS: Needs based on Wounds, DM, ESRD+ HD/ 36.4kg 35-40 kcals/kg 5956-5376 total kcals 1.5-2.0 g protein/kg 55-73 g total protein 20-25 mL/kg 728-910 total fluid mLs NUTRITION DIAGNOSIS: * Increased kcal and protein needs r/t wound healing, underweight status, HD needs as evidenced by stage 4 wound at rt trochanter, pt is underweight per guidelines, generalized moderate wasting, ESRD, now on HD. * Swallowing and chewing difficulty R/T dysphagia, edentulous status as evidenced by pt on pureed moist texture, NTL diet. CURRENT DIET:Renal, pureed moist w/ NTL PO DIET RECOMMENDATIONS: Maintain RENAL DIET (texture per [employer] or as tolerated) ADDITIONAL RECOMMENDATIONS: 1) Calibrated bed scale wt for accurate CBW -> daily wt monitoring 2) WOUND CARE: add Nephrovite x 1, Balta 1pkt BID 3) Monitor BGs, need for carb controlled diet, hypoglycemics (h/o DM) 4) 4oz Nepro TID w/ meals 5) Monitor lytes closely (3) Wound, open, hip or thigh with complication Assessment & Plan: history of prior large debridement and evacuation of abscess in hip. since been healing slow but well last admission much improved now with continued improvement. apply hydrogel and gauze, cover with foam dressing, do daily and prn will follow with recs thank you (4) Abscess of right hip Camilo James Feb 14, 2019 13:31
[2019-02-14] MEDS: HYDROcodone/Acetamin 10/325 tab ORAL PRN (13:32)
[2019-02-14 16:00] VITALS: BP 155/71
--- NOTE | 2019-02-14 18:05 | NUR ---
NURSE NOTES: wound vac alarms displaying malfunction, nurse places a suresite at the site of the wound. Machine restart to suction without problem.
--- NOTE | 2019-02-14 18:15 | NUR ---
NURSE NOTES: wound vac again starts to alarm, notified charge nurse Lulu, who turns it off and on. no kinks noted. machine restarts to suction again.
--- NOTE | 2019-02-14 18:35 | NUR ---
NURSE NOTES: placed a call to [employer] wound vac company, spoken to Kendra for troubleshooting the malfunction. Alarm now says Blockage. Kendra tells nurse to look for clots inside tubing, nurse can't find any but the area of the tubing close to the wound is red, unable to visualize presence of clotting. Kendra then asks nurse to disconnect tubing at the white joint, to check for suction. Nurse does it and hears the hissing so machine is suctioning. Last, Kendra says if needed, change dressing. Nurse production clerks supervisor Jazmine arrives and agrees to change dressing with nurse, but when she removes the outer suresite used as reinforcement, blood from the wound is noted to be coming out of the wound, so Jazmine says she has to leave to pass report, being 1900 and told nurse to do the same. After Jazmine leaves and nurse is feeding patient, wound vac starts to alarm again. Will endorse to NOC nurse.
--- NOTE | 2019-02-14 19:45 | NUR ---
HAND-OFF: Report given to SANYA Sandoval.
--- NOTE | 2019-02-14 19:53 | NUR ---
NURSE NOTES: Received patient in bed, confused, disoriented,IV site is clean, dry, intact, per Day shift nurse, wound vac to the right shoulder is not working, will follow up. Bilateral non behavioral wrist restraints are applied, call light is within reach, bed is in low position, locked and alarm is on, will continue to monitor for safety and comfort.
[2019-02-14 20:00] VITALS: BP 127/78
[2019-02-14] MEDS ORDERED: Vancomycin 500mg/D5W 110ml IVPB ONE ×2 (20:00)
[2019-02-14] MEDS: Epoetin Alfa-EPBX(ESRD on dialysis)10,000 unit/ml vial SUBQ SCH (21:13)
[2019-02-15 00:02] VITALS: BP 117/68
[2019-02-15] MEDS: Cefepime HCl 1 GM in D5W 55 ML IVPB SCH (00:46)
[2019-02-15 04:00] VITALS: BP 137/89
[2019-02-15] MEDS: Liothyronine 5mcg tab ORAL SCH (06:09)
--- NOTE | 2019-02-15 07:12 | NUR ---
HAND-OFF: Report given to Shashank SEGUNDO.
[2019-02-15 07:55] VITALS: BP 164/91
[2019-02-15] MEDS: OLANZapine 2.5mg tab ORAL SCH ×3 (08:20→22:23)
[2019-02-15] MEDS: Heparin 5000 units/ml inj SUBQ SCH ×2 (08:22→22:24)
[2019-02-15] MEDS: HYDROcodone/Acetamin 10/325 tab ORAL PRN (08:25)
--- NOTE | 2019-02-15 09:27 | 48 Hour Post Anesthesia Eval ---
Post Anesthesia Evaluation Procedure: right shoulder IND Date of Evaluation: Feb 15, 2019 Time of Evaluation: 09:26 Blood Pressure Systolic: 164 0: 91 Pulse Rate: 88 Respiratory Rate: 18 Temperature (Fahrenheit): 96.1 O2 Sat by Pulse Oximetry: 98 Airway: patent Nausea: No Vomiting: No Pain Intensity: 3 Hydration Status: adequate Cardiopulmonary Status: Stable Mental Status/LOC: patient returned to baseline Follow-up Care/Observations: 0 Post-Anesthesia Complications: 0 Follow-up care needed: N/A Bony Hurtado MD Feb 15, 2019 09:27
--- NOTE | 2019-02-15 10:35 | General Progress Note ---
Assessment/Plan Problem List: (1) Septic arthritis ICD Codes: M00.9 - Pyogenic arthritis, unspecified SNOMED: 215260962 (2) Diabetes mellitus ICD Codes: E11.9 - Type 2 diabetes mellitus without complications SNOMED: 43200938 (3) Malnutrition ICD Codes: E46 - Unspecified protein-calorie malnutrition SNOMED: 02129284 (4) ESRD (end stage renal disease) ICD Codes: N18.6 - End stage renal disease SNOMED: 13082417 (5) Staphylococcus aureus bacteremia ICD Codes: R78.81 - Bacteremia SNOMED: 693739673 Status: stable, progressing Assessment/Plan: iv abx follow up cultures ortho eval appreciated HD per renal anxiolytics wound vac pain rx restraints for safety- pulling at lines d/w ID- recommends replacing perm cath Subjective ROS Limited/Unobtainable: No Constitutional: Reports: malaise, weakness HEENT: Reports: no symptoms Cardiovascular: Reports: no symptoms Respiratory: Reports: no symptoms Gastrointestinal/Abdominal: Reports: no symptoms Genitourinary: Reports: no symptoms Neurologic/Psychiatric: Reports: anxiety Endocrine: Reports: no symptoms Hematologic/Lymphatic: Reports: anemia Allergies: Coded Allergies: No Known Allergies (Unverified , 11/12/18) All Systems: reviewed and negative except above Subjective s/p I and D shoulder abscess. has wound vac. no fevers. intermittent agitation. Objective Last 24 Hour Vital Signs Date Time Temp Pulse Resp B/P (MAP) Pulse Ox O2 Delivery O2 Flow Rate FiO2 02/15/19 09:27 88 18 98 02/15/19 08:20 88 164/91 02/15/19 08:20 88 164/91 02/15/19 07:55 96.1 88 18 164/91 (115) 98 02/15/19 04:00 98.0 78 20 137/89 (105) 02/15/19 00:02 97.0 64 18 117/68 (84) 02/14/19 22:16 Room Air 02/14/19 21:13 75 127/89 02/14/19 20:00 98.1 74 20 127/78 (94) 02/14/19 18:25 96 155/71 02/14/19 16:00 98.9 96 20 155/71 (99) 95 02/14/19 14:02 97.9 02/14/19 12:00 97.9 87 20 160/84 (109) 96 Intake and Output 02/14/19 02/15/19 19:00 07:00 Intake Total 200 ml Output Total 5 ml Balance 195 ml Intake Oral 200 ml Output Drainage Total 5 ml # Voids 3 Laboratory Tests 02/14/19 17:28: Random Vancomycin Level 16.0 Height (Feet): 5 Height (Inches): 1.00 Weight (Pounds): 97 Objective General Appearance: WD/WN, alert, confused Neck: supple Cardiovascular: normal rate, regular rhythm Respiratory/Chest: chest wall non-tender, lungs clear, normal breath sounds, no respiratory distress Abdomen: normal bowel sounds, non tender, soft, no organomegaly, abnormal bowel sounds Edema: no edema noted Arm (L), no edema noted Arm (R), no edema noted Leg (L), no edema noted Leg (R), no edema noted Pedal (L), no edema noted Pedal (R), no edema noted Generalized Nate Beltran MD Feb 15, 2019 10:35
--- NOTE | 2019-02-15 10:39 | NUR ---
NURSE NOTES: PT AXOX1, RESTLESS, RESTING IN BED. PT WITH BILATERAL SOFT WRIST RESTRAINTS. NO SWELLING NOTED, SKIN INTACT AT BILATERAL WRISTS. PT'S WOUND VAC DRESSING AND SPONGE WAS CHANGED THIS MORNING WITH POLE SANDER OPERATOR, RUDY. PER RN LAST NIGHT, PT'S WOUND VAC HAS NOT BEEN FUNCTIONING PROPERLY. PREVIOUS RN DID NOT TAKE OUT SPONGE AND DRESSING WAS NOT TAKEN OFF. RIGHT HIP DRESSING WAS CHANGED. DURING INTIAL ROUNDING, RN TOOK OUT WOUND VAC DRESSING AND SPONGE AND APPLIED DRY DRESSING. THEN WAS CHANGED BY WOUND CARE NURSE. RN ADMINISTERED PRN NORCO ORDERED FOR PAIN. PT WITH GARBLED SPEECH, FLACC PAIN SCALE 5/10. BED IN LOWEST POSITION WITH BEDSIDE RAILS X3 RAISED. PT IS NOW CALM AND RESTING IN BED. IN HIGH-JIMÉNEZ'S POSITION. WILL CONTINUE TO MONITOR.
--- NOTE | 2019-02-15 10:55 | Infectious Diseases Prog Note ---
"Assessment/Plan Assessment/Plan antibiotics : vancomycin, cefepime A 1. right shoulder septic arthritis | subdeltoid abscess s/p i and d 2. hypertension 3. renal failure on HD 4. dementia 5. schizophrenia 6. leucocytosis resolved 7. recent staph aureus sepsis P 1. continue iv vancomycin 2. d/c cefepime 3. consider catheter removal 4. will follow up cultures Subjective ROS Limited/Unobtainable: Yes Allergies: Coded Allergies: No Known Allergies (Unverified , 11/12/18) Objective Vital Signs Last 24 Hour Vital Signs Date Time Temp Pulse Resp B/P (MAP) Pulse Ox O2 Delivery O2 Flow Rate FiO2 02/15/19 09:27 88 18 98 02/15/19 09:00 Room Air 02/15/19 08:20 88 164/91 02/15/19 08:20 88 164/91 02/15/19 07:55 96.1 88 18 164/91 (115) 98 02/15/19 04:00 98.0 78 20 137/89 (105) 02/15/19 00:02 97.0 64 18 117/68 (84) 02/14/19 22:16 Room Air 02/14/19 21:13 75 127/89 02/14/19 20:00 98.1 74 20 127/78 (94) 02/14/19 18:25 96 155/71 02/14/19 16:00 98.9 96 20 155/71 (99) 95 02/14/19 14:02 97.9 02/14/19 12:00 97.9 87 20 160/84 (109) 96 Height (Feet): 5 Height (Inches): 1.00 Weight (Pounds): 97 Respiratory/Chest: lungs clear Cardiovascular: normal rate, regular rhythm, no gallop/murmur Abdomen: soft, non tender Extremities: no edema, other - right subclavian catheter, right shoulder VAC Microbiology Date/Time Source Procedure Growth Status 02/13/19 13:13 Shoulder Right Gram Stain - Final Resulted 02/13/19 13:13 Shoulder Right Aerobic Culture - Preliminary NO GROWTH Resulted 02/13/19 13:13 Shoulder Right Anaerobic Culture Pending Resulted Laboratory Tests Test 02/14/19 17:28 Random Vancomycin Level 16.0 ug/mL Current Medications Medications (Trade) Dose Ordered Sig/Javier Route PRN Reason Start Time Stop Time Status Last Admin Dose Admin Acetaminophen (Tylenol) 650 mg Q4H PRN ORAL Mild Pain/Temp > 100.5 02/11/19 00:45 03/13/19 00:44 02/14/19 06:14 Acetaminophen/ Hydrocodone Bitart (Ingalls 10/325) 1 tab Q4H PRN ORAL For Pain 02/11/19 13:45 02/18/19 13:44 02/15/19 08:25 Amlodipine Besylate (Norvasc) 5 mg BID ORAL 02/11/19 09:00 03/13/19 08:59 02/15/19 08:20 Carvedilol (Coreg) 3.125 mg EVERY 12 HOURS ORAL 02/11/19 09:00 03/13/19 08:59 02/15/19 08:20 Cefepime HCl 1 gm/ Dextrose 55 ml @ 110 mls/hr Q24H IVPB 02/11/19 00:45 02/18/19 00:44 02/15/19 00:46 Clonidine HCl (Catapres TTS-1) 1 patch QWEEK TDERMAL 02/14/19 09:00 03/16/19 08:59 02/14/19 08:54 Epoetin Thomas (Epoetin Thomas(ESRD on dialysis)) 10,000 unit THU-THU-THU SUBQ 02/14/19 21:00 03/16/19 20:59 02/14/19 21:13 Heparin Sodium (Porcine) (Heparin 5000 units/ml) 5,000 units EVERY 12 HOURS SUBQ 02/11/19 21:00 03/13/19 20:59 02/15/19 08:22 Levothyroxine Sodium (Synthroid) 50 mcg DAILY@0630 ORAL 02/11/19 06:30 03/13/19 06:29 02/15/19 06:09 Liothyronine Sodium (Cytomel) 5 mcg ACBREAKFAST ORAL 02/13/19 09:00 03/15/19 08:59 02/15/19 06:09 Olanzapine (ZyPREXA) 2.5 mg BID ORAL 02/11/19 00:45 03/13/19 00:44 02/15/19 08:20 Olanzapine (ZyPREXA) 2.5 mg QHS ORAL 02/11/19 21:00 03/13/19 20:59 02/14/19 21:13 Pantoprazole (Protonix) 40 mg DAILY ORAL 02/11/19 09:00 03/13/19 08:59 02/15/19 08:20 Sevelamer Carbonate (Renvela) 800 mg THREE TIMES A DAY ORAL 02/11/19 09:00 03/13/19 08:59 02/15/19 08:20 Vancomycin HCl (Vanco rx to dose) 1 ea DAILY PRN MISC Per rx protocol 02/11/19 00:45 03/13/19 00:44 Melissa Solares MD Feb 15, 2019 10:55"
[2019-02-15 12:00] VITALS: BP 160/67
--- NOTE | 2019-02-15 13:00 | NUR ---
NURSE NOTES: LEFT MESSAGE FOR DR MCARTHUR REGARDING ELEVATED BP WITH NO PRN MEDS. REQUESTED NEW ORDER. AWAITING NEW ORDERS.
--- NOTE | 2019-02-15 13:24 | Nephrology Progress Note ---
Assessment/Plan Problem List: (1) ESRD (end stage renal disease) (2) Malnutrition (3) Septic arthritis Assessment: right shoulder (4) Diabetes mellitus (5) Anemia in CKD (chronic kidney disease) Assessment (1) ESRD (end stage renal disease) (2) Diabetes mellitus (3) Failure to thrive (0-17) severe malnutrition (4) Anemia in CKD (chronic kidney disease) (5) Hypertensive kidney disease (6) h/o Staphylococcus aureus bacteremia - septic shoulder . h/o right hip abcess Plan surveillence BC Check labs- keep bp and BS in check HD today 02/14 vancomycin- monitor levels per ID ortho intervention for I&D done per orders Subjective ROS Limited/Unobtainable: No Constitutional: Reports: malaise, weakness Objective Objective Last 24 Hour Vital Signs Date Time Temp Pulse Resp B/P (MAP) Pulse Ox O2 Delivery O2 Flow Rate FiO2 02/15/19 12:00 97.4 59 17 160/67 (98) 96 02/15/19 09:27 88 18 98 02/15/19 09:00 Room Air 02/15/19 08:20 88 164/91 02/15/19 08:20 88 164/91 02/15/19 07:55 96.1 88 18 164/91 (115) 98 02/15/19 04:00 98.0 78 20 137/89 (105) 02/15/19 00:02 97.0 64 18 117/68 (84) 02/14/19 22:16 Room Air 02/14/19 21:13 75 127/89 02/14/19 20:00 98.1 74 20 127/78 (94) 02/14/19 18:25 96 155/71 02/14/19 16:00 98.9 96 20 155/71 (99) 95 02/14/19 14:02 97.9 Intake and Output 02/14/19 02/15/19 19:00 07:00 Intake Total 200 ml Output Total 5 ml Balance 195 ml Intake Oral 200 ml Output Drainage Total 5 ml # Voids 3 Laboratory Tests 02/14/19 17:28: Random Vancomycin Level 16.0 Height (Feet): 5 Height (Inches): 1.00 Weight (Pounds): 97 General Appearance: no apparent distress Cardiovascular: normal rate Respiratory/Chest: decreased breath sounds Abdomen: soft Objective no change Fouladian,William MD Feb 15, 2019 13:24
--- NOTE | 2019-02-15 14:13 | NUR ---
RD ASSESSMENT & RECOMMENDATIONS SEE CARE ACTIVITY FOR COMPLETE ASSESSMENT DAILY ESTIMATED NEEDS: Needs based on Wounds, DM, ESRD+ HD/ 36.4kg 35-40 kcals/kg 2442-0257 total kcals 1.5-2.0 g protein/kg 55-73 g total protein 20-25 mL/kg 728-910 total fluid mLs NUTRITION DIAGNOSIS: * Increased kcal and protein needs r/t wound healing, underweight status, HD needs as evidenced by stage 4 wound at rt trochanter, pt is underweight per guidelines, generalized moderate wasting, ESRD, now on HD. * Swallowing and chewing difficulty R/T dysphagia, edentulous status as evidenced by pt on pureed moist texture, NTL diet. CURRENT DIET:Renal, pureed moist w/ NTL PO DIET RECOMMENDATIONS: Maintain RENAL DIET (texture per POSTBED STITCHER or as tolerated) ADDITIONAL RECOMMENDATIONS: 1) Calibrated bed scale wt for accurate CBW -> daily wt monitoring 2) WOUND CARE: add Nephrovite x 1, Balta 1pkt BID 3) Monitor BGs, need for carb controlled diet, hypoglycemics (h/o DM) 4) 4oz Nepro TID w/ meals 5) Monitor lytes closely 6) Snacks in b/w meals as tolerated
--- NOTE | 2019-02-15 14:23 | NUR ---
NURSE NOTES:WOUND CARE NOTES: Pt surgical incision R shoulder noted to have moderate amt sanguineus exudate. Periwound is clean and intact. Primary nurse reported Pt's NPWT malfunctioned during night stocker and staff were unable to continue NPWT.wound irrigated with Saline. Cavilon Skin Barrier applied periwound. Transparent drape applied to perimeter of wound . Granulofoam packing placed in cavity of wound. Additional granulofoam packing cut to accommodate NPWT trac pad and Placed over foam packing. NPWT resumed as ordered @125mm/Hg to continuous suction. Pt did not exhibit ant distress or evidence of pain during wound care.
[2019-02-15 15:53] VITALS: BP 162/79
--- NOTE | 2019-02-15 18:43 | Surgery Progress Note ---
Surgery Progress Note Subjective Additional Comments leukocytosis resolved exam stable vac resting Objective Last 24 Hour Vital Signs Date Time Temp Pulse Resp B/P (MAP) Pulse Ox O2 Delivery O2 Flow Rate FiO2 02/15/19 17:42 76 162/79 02/15/19 15:53 97.1 76 18 162/79 (106) 95 02/15/19 12:00 97.4 59 17 160/67 (98) 96 02/15/19 09:27 88 18 98 02/15/19 09:00 Room Air 02/15/19 08:20 88 164/91 02/15/19 08:20 88 164/91 02/15/19 07:55 96.1 88 18 164/91 (115) 98 02/15/19 04:00 98.0 78 20 137/89 (105) 02/15/19 00:02 97.0 64 18 117/68 (84) 02/14/19 22:16 Room Air 02/14/19 21:13 75 127/89 02/14/19 20:00 98.1 74 20 127/78 (94) I&O Intake and Output 02/14/19 02/15/19 19:00 07:00 Intake Total 200 ml Output Total 5 ml Balance 195 ml Intake Oral 200 ml Output Drainage Total 5 ml # Voids 3 Dressing: dry Wound: clean Cardiovascular: RSR Respiratory: clear Abdomen: soft, non-tender, present bowel sounds Extremities: other Plan Problems: (1) Septic arthritis Assessment & Plan: Right subacromial/subdeltoid bursal effusion with multiple bubbles of air; In the absence of any recent surgery or other intervention, the fluid is likely infected and suspicious for abscess. Smaller glenohumeral joint effusion may be infected as well. The two spaces may communicate. Findings consistent with the given history of septic shoulder. Arthrosis of the glenohumeral joint. Right pleural effusion Old granulomatous disease Right jugular dialysis catheter. on IV abx labs noted s/p right shoulder washout and vac placement (2) Malnutrition Assessment & Plan: DAILY ESTIMATED NEEDS: Needs based on Wounds, DM, ESRD+ HD/ 36.4kg 35-40 kcals/kg 5963-6962 total kcals 1.5-2.0 g protein/kg 55-73 g total protein 20-25 mL/kg 728-910 total fluid mLs NUTRITION DIAGNOSIS: * Increased kcal and protein needs r/t wound healing, underweight status, HD needs as evidenced by stage 4 wound at rt trochanter, pt is underweight per guidelines, generalized moderate wasting, ESRD, now on HD. * Swallowing and chewing difficulty R/T dysphagia, edentulous status as evidenced by pt on pureed moist texture, NTL diet. CURRENT DIET:Renal, pureed moist w/ NTL PO DIET RECOMMENDATIONS: Maintain RENAL DIET (texture per ENGINEER SECOND ASSISTANT or as tolerated) ADDITIONAL RECOMMENDATIONS: 1) Calibrated bed scale wt for accurate CBW -> daily wt monitoring 2) WOUND CARE: add Nephrovite x 1, Balta 1pkt BID 3) Monitor BGs, need for carb controlled diet, hypoglycemics (h/o DM) 4) 4oz Nepro TID w/ meals 5) Monitor lytes closely (3) Wound, open, hip or thigh with complication Assessment & Plan: history of prior large debridement and evacuation of abscess in hip. since been healing slow but well last admission much improved now with continued improvement. apply hydrogel and gauze, cover with foam dressing, do daily and prn will follow with recs thank you (4) Abscess of right hip Camilo James Feb 15, 2019 18:43
--- NOTE | 2019-02-15 19:15 | NUR ---
HAND-OFF: Report given to Alfredo MORA RN.
--- NOTE | 2019-02-15 19:46 | NUR ---
NURSE NOTES: Patient in bed, awake, alert x 1. Unable to make simple needs known. Noted with right shoulder wound vac, kept clean and comfortable. Abdomen is soft and non distended. Right hip dressing noted. Respiration is even and unlabored. call light is at bedside. Will continue plan of care.
[2019-02-15 20:00] VITALS: BP 158/74
[2019-02-16] VITALS: BP 149/72
--- NOTE | 2019-02-16 02:30 | Progress Note ---
DATE: 02/14/2019 CARDIOLOGY PROGRESS NOTE Late entry for February 14, 2019 SUBJECTIVE: Postop day 1 following incision and drainage of right shoulder abscess, now wound VAC is in place. The patient has episodes of agitation, possibly associated pain. Blood pressure range has increased today. There is no shortness of breath. OBJECTIVE: VITAL SIGNS: Blood pressure 156/87, pulse 83, respiratory rate 20, and afebrile. GENERAL: Wound VAC noted. LUNGS: With diminished breath sounds. No rales. CARDIAC: Reveals regular rhythm and rate. Normal S1 and S2 with no change in murmur. ABDOMEN: Soft. EXTREMITIES: There is no edema. LABORATORY DATA: White count 9.7 and hemoglobin 8.1. Sodium 137, potassium 5.4, bicarbonate 22, BUN 72, creatinine 5.6, magnesium 2.1, and albumin 1.6. IMPRESSION: 1. Postop day 1 for right shoulder debridement, hemodynamically stable. 2. Anemia, slightly worsened. Recommend protein supplement, wound care, pain control. ____ would not advance antihypertensives at this time as pain and anxiety related. Blood pressure elevation is suspected. 3. Hemodialysis with ultrafiltration for volume management. Abel Stubbs M.D. DR: CHANDU JOB#: [id number] CC:
--- NOTE | 2019-02-16 02:30 | Progress Note ---
DATE: 02/13/2019 CARDIOLOGY PROGRESS NOTE Late entry. SUBJECTIVE: Orthopedic intervention is planned. The patient is in no acute respiratory distress. OBJECTIVE: VITAL SIGNS: Stable. Low-grade temperature. LUNGS: Clear. CARDIAC: Regular. Normal S1 and S2 with a 1/6 systolic murmur at the base. ABDOMEN: Soft. No edema. IMPRESSION: Minimally increased perioperative risk for orthopedic surgery. PLAN: 1. Proceed with I and D and wound VAC placement. 2. Hemodialysis with ultrafiltration. 3. Maintain anti-failure regimen and withhold parameters for low blood pressure readings. 4. Symptom-guided pain control. Abel Stubbs M.D. DR: CRISTINA JOB#: [id number] CC:
--- NOTE | 2019-02-16 02:45 | Progress Note ---
DATE: 02/15/2019 CARDIOLOGY PROGRESS NOTE SUBJECTIVE: Postoperative day #2. The patient has elevated blood pressure associated with episodes of agitation. Pain is suspected as well. The patient has a PermCath that is to be replaced as well due to its risk of infection. PHYSICAL EXAMINATION: GENERAL: Wound VAC in place. VITAL SIGNS: Blood pressure parameters ranging from 137/89 to 164/91 with heart rate 88 and respiratory rate 20, most recently. NECK: Supple. LUNGS: Clear. CARDIAC: Regular. Catheter site with dressing in place. EXTREMITIES: Without edema. IMPRESSION: 1. Status post abscess incision and drainage on the right shoulder, now with wound VAC. 2. Type 2 diabetes mellitus. 3. Hypertensive heart disease with labile blood pressure. 4. Severe protein-calorie malnutrition. 5. Staphylococcus aureus bacteremia. PermCath, possibly infected from bacteremia. 6. End-stage renal disease. PLAN: As needed antihypertensives should blood pressure spikes with attempt management of pain and agitation first. Continue antimicrobials, hemodialysis with ultrafiltration for volume management, and await replacement of PermCath. We will follow. Abel Stubbs M.D. DR: JASON JOB#: [id number] CC:
--- NOTE | 2019-02-16 03:00 | Progress Note ---
DATE: 02/12/2019 CARDIOLOGY PROGRESS NOTE Late entry for 02/12/2019 SUBJECTIVE: The patient was noted by CAT scan to have fluid collection in the shoulder. Orthopedic evaluation is planned. The patient continues with hemodialysis and ultrafiltration. Temperature max 99.2. OBJECTIVE: VITAL SIGNS: Blood pressure 124/68, pulse 78, respiratory rate 18. GENERAL: Tenderness over the right shoulder. LUNGS: With diminished breath sounds. No rales. CARDIAC: Regular rhythm and rate. Normal S1 and S2 with a fourth heart sound and a 1/6 systolic murmur at the base. ABDOMEN: Soft. EXTREMITIES: No edema on the lower extremities. LABORATORY DATA: White count 11.7 and hemoglobin 8.8. Sodium 134, potassium 4.9, BUN 46, creatinine 3.5, pro-natriuretic peptide over 17,000, and TSH is 4.5. IMPRESSION: 1. Septic joint. 2. End-stage renal disease. 3. Acute on chronic diastolic congestive heart failure. 4. Severe protein-calorie malnutrition. 5. Sick euthyroid syndrome. 6. Anemia of chronic kidney disease. PLAN: 1. Await orthopedic evaluation. 2. Continue antimicrobials. 3. Hemodialysis with ultrafiltration for volume management. 4. Titrate anti-failure regimen based on blood pressure and clinical parameters. 5. Further recommendations to follow. Abel Stubbs M.D. DR: CHANDU JOB#: [id number] CC:
[2019-02-16 04:00] VITALS: BP 136/65
[2019-02-16] MEDS: Liothyronine 5mcg tab ORAL SCH (05:47)
[2019-02-16 06:25] LABS: BASOPHILS % (AUTO) 0.9 % (0.0-2.0); HEMATOCRIT 27.7 % (37.0-47.0); HEMOGLOBIN 8.6 G/DL (12.0-16.0); LYMPHOCYTES % (AUTO) 41.3 % (20.0-45.0); MEAN CORPUSCULAR VOLUME 93 FL (80-99); MONOCYTES % (AUTO) 5.6 % (1.0-10.0); NEUTROPHILS % (AUTO) 50.2 % (45.0-75.0); PLATELET COUNT 735 K/UL (150-450); RED BLOOD COUNT 2.99 M/UL (4.20-5.40); RED CELL DISTRIBUTION WIDTH 15.3 % (11.6-14.8); WHITE BLOOD COUNT 10.2 K/UL (4.8-10.8)
[2019-02-16 06:47] LABS: PHOSPHORUS 7.3 MG/DL (2.5-4.9)
[2019-02-16 06:48] LABS: ALANINE AMINOTRANSFERASE 8 U/L (12-78); ALBUMIN 1.9 G/DL (3.4-5.0); ALBUMIN/GLOBULIN RATIO 0.3 (1.0-2.7); ALKALINE PHOSPHATASE 114 U/L (46-116); ANION GAP 14 mmol/L (5-15); ASPARTATE AMINO TRANSFERASE 14 U/L (15-37); BILIRUBIN,TOTAL 0.4 MG/DL (0.2-1.0); BLOOD UREA NITROGEN 45 mg/dL (7-18); CALCIUM 9.7 MG/DL (8.5-10.1); CARBON DIOXIDE 24 MMOL/L (21-32); CHLORIDE 102 MMOL/L (98-107); CREATININE 4.7 MG/DL (0.55-1.30); POTASSIUM 4.6 MMOL/L (3.5-5.1); SODIUM 140 MMOL/L (136-145)
--- NOTE | 2019-02-16 07:31 | NUR ---
HAND-OFF: Report given to SANYA Mccord.
--- NOTE | 2019-02-16 07:35 | NUR ---
NURSE NOTES: Patient received in stable condition, breathing even and unlabored on room air. Bilateral wrist soft restraints on. Circulation intact. Wound vac on right shoulder. Scheduled for dialysis today from [facility]. Bed locked in lowest position, call light placed within reach. Will continue to monitor.
[2019-02-16 08:00] VITALS: BP 146/74
--- NOTE | 2019-02-16 08:23 | General Progress Note ---
Assessment/Plan Problem List: (1) Septic arthritis ICD Codes: M00.9 - Pyogenic arthritis, unspecified SNOMED: 569111916 (2) Diabetes mellitus ICD Codes: E11.9 - Type 2 diabetes mellitus without complications SNOMED: 87362720 (3) Malnutrition ICD Codes: E46 - Unspecified protein-calorie malnutrition SNOMED: 28823560 (4) ESRD (end stage renal disease) ICD Codes: N18.6 - End stage renal disease SNOMED: 99304042 (5) Staphylococcus aureus bacteremia ICD Codes: R78.81 - Bacteremia SNOMED: 385314718 Status: stable, progressing Assessment/Plan: iv abx follow up cultures ortho follow up HD per renal anxiolytics wound vac pain rx restraints for safety- pulling at lines d/w ID- recommends replacing perm cath. will d/w renal Subjective ROS Limited/Unobtainable: Yes Constitutional: Reports: malaise, weakness HEENT: Reports: no symptoms Cardiovascular: Reports: no symptoms Respiratory: Reports: cough Gastrointestinal/Abdominal: Reports: no symptoms Genitourinary: Reports: no symptoms Neurologic/Psychiatric: Reports: anxiety, emotional problems Endocrine: Reports: no symptoms Hematologic/Lymphatic: Reports: anemia Allergies: Coded Allergies: No Known Allergies (Unverified , 11/12/18) All Systems: reviewed and negative except above Subjective no events. w/o complaints. intermittent agitation. d/w ID- recommends removing perm cath. stable on wound vac. on iv abx. culture neg so far Objective Last 24 Hour Vital Signs Date Time Temp Pulse Resp B/P (MAP) Pulse Ox O2 Delivery O2 Flow Rate FiO2 02/16/19 04:00 97.9 86 18 136/65 (88) 94 02/16/19 00:00 97.4 85 18 149/72 (97) 95 02/15/19 22:23 90 156/82 02/15/19 21:00 Room Air 02/15/19 20:00 97.5 87 18 158/74 (102) 94 02/15/19 17:42 76 162/79 02/15/19 15:53 97.1 76 18 162/79 (106) 95 02/15/19 12:00 97.4 59 17 160/67 (98) 96 02/15/19 09:27 88 18 98 02/15/19 09:00 Room Air Intake and Output 02/15/19 02/16/19 18:59 06:59 Intake Total 134 ml 120 ml Output Total 0 ml Balance 134 ml 120 ml Intake Oral 134 ml 120 ml Output Drainage Total 0 ml # Voids 2 Laboratory Tests 02/16/19 04:53: White Blood Count 10.2, Red Blood Count 2.99L, Hemoglobin 8.6L, Hematocrit 27.7L , Mean Corpuscular Volume 93, Mean Corpuscular Hemoglobin 28.8, Mean Corpuscular Hemoglobin Concent 31.1L, Red Cell Distribution Width 15.3H, Platelet Count 735H, Mean Platelet Volume 3.9L, Neutrophils (%) (Auto) 50.2, Lymphocytes (%) (Auto) 41.3, Monocytes (%) (Auto) 5.6, Eosinophils (%) (Auto) 2.0, Basophils (%) (Auto) 0.9, Sodium Level 140, Potassium Level 4.6, Chloride Level 102, Carbon Dioxide Level 24, Anion Gap 14, Blood Urea Nitrogen 45H, Creatinine 4.7H, Estimat Glomerular Filtration Rate , Glucose Level 128H, Uric Acid 6.3, Calcium Level 9.7, Phosphorus Level 7.3H, Magnesium Level 2.1, Total Bilirubin 0.4, Aspartate Amino Transf (AST/SGOT) 14L, Alanine Aminotransferase ( ALT/SGPT) 8L, Alkaline Phosphatase 114, C-Reactive Protein, Quantitative 13.2H, Pro-B-Type Natriuretic Peptide 92173R, Total Protein 8.7H, Albumin 1.9L, Globulin 6.8, Albumin/Globulin Ratio 0.3L Height (Feet): 5 Height (Inches): 1.00 Weight (Pounds): 90 Objective General Appearance: WD/WN, alert, confused Neck: supple Cardiovascular: normal rate, regular rhythm Respiratory/Chest: chest wall non-tender, lungs clear, normal breath sounds, no respiratory distress Abdomen: normal bowel sounds, non tender, soft, no organomegaly, abnormal bowel sounds Edema: no edema noted Arm (L), no edema noted Arm (R), no edema noted Leg (L), no edema noted Leg (R), no edema noted Pedal (L), no edema noted Pedal (R), no edema noted Generalized Nate Beltran MD Feb 16, 2019 08:23
--- NOTE | 2019-02-16 08:32 | NUR ---
CASE MANAGEMENT:REVIEW 02/16/19 SI: POD #3...S/P RT SHOULDER ABSCESS, I&D, WOUND VAC SEPTIC ARTHRITIS. ESRD 97.9 86 18 136/65 94% ON RA H/H-8.6/27.7 BUN+45 CR+4.7 IS: EPOETIN SQ MWF CYTOMEL PO QAM HEPARIN SQ Q12 ZYPREXA PO QHS NORCO PO Q4HRS PRN NORVASC PO BID RENVELA PO TID PROTONIX PO QD COREG PO Q12 SYNTHROID PO QD ZYPREXA PO BID : MED/SURG STATUS 4 EAST DCP: FROM [facility] PLAN: HD FOR TODAY WOUND VAC
[2019-02-16] MEDS: OLANZapine 2.5mg tab ORAL SCH ×3 (08:33→20:59)
--- NOTE | 2019-02-16 08:54 | Nephrology Progress Note ---
Assessment/Plan Problem List: (1) ESRD (end stage renal disease) (2) Malnutrition (3) Septic arthritis Assessment: right shoulder (4) Diabetes mellitus (5) Anemia in CKD (chronic kidney disease) Assessment (1) ESRD (end stage renal disease) (2) Diabetes mellitus (3) Failure to thrive (0-17) severe malnutrition (4) Anemia in CKD (chronic kidney disease) (5) Hypertensive kidney disease (6) h/o Staphylococcus aureus bacteremia - septic shoulder . h/o right hip abcess Plan up dose renvela surveillence BC done - results pending Check labs- keep bp and BS in check HD today 02/16 vancomycin- monitor levels per ID ortho intervention for I&D done per orders Subjective ROS Limited/Unobtainable: No Constitutional: Reports: malaise Objective Objective Last 24 Hour Vital Signs Date Time Temp Pulse Resp B/P (MAP) Pulse Ox O2 Delivery O2 Flow Rate FiO2 02/16/19 04:00 97.9 86 18 136/65 (88) 94 02/16/19 00:00 97.4 85 18 149/72 (97) 95 02/15/19 22:23 90 156/82 02/15/19 21:00 Room Air 02/15/19 20:00 97.5 87 18 158/74 (102) 94 02/15/19 17:42 76 162/79 02/15/19 15:53 97.1 76 18 162/79 (106) 95 02/15/19 12:00 97.4 59 17 160/67 (98) 96 02/15/19 09:27 88 18 98 02/15/19 09:00 Room Air Intake and Output 02/15/19 02/16/19 18:59 06:59 Intake Total 134 ml 120 ml Output Total 0 ml Balance 134 ml 120 ml Intake Oral 134 ml 120 ml Output Drainage Total 0 ml # Voids 2 Laboratory Tests 02/16/19 04:53: White Blood Count 10.2, Red Blood Count 2.99L, Hemoglobin 8.6L, Hematocrit 27.7L , Mean Corpuscular Volume 93, Mean Corpuscular Hemoglobin 28.8, Mean Corpuscular Hemoglobin Concent 31.1L, Red Cell Distribution Width 15.3H, Platelet Count 735H, Mean Platelet Volume 3.9L, Neutrophils (%) (Auto) 50.2, Lymphocytes (%) (Auto) 41.3, Monocytes (%) (Auto) 5.6, Eosinophils (%) (Auto) 2.0, Basophils (%) (Auto) 0.9, Sodium Level 140, Potassium Level 4.6, Chloride Level 102, Carbon Dioxide Level 24, Anion Gap 14, Blood Urea Nitrogen 45H, Creatinine 4.7H, Estimat Glomerular Filtration Rate , Glucose Level 128H, Uric Acid 6.3, Calcium Level 9.7, Phosphorus Level 7.3H, Magnesium Level 2.1, Total Bilirubin 0.4, Aspartate Amino Transf (AST/SGOT) 14L, Alanine Aminotransferase ( ALT/SGPT) 8L, Alkaline Phosphatase 114, C-Reactive Protein, Quantitative 13.2H, Pro-B-Type Natriuretic Peptide 31708W, Total Protein 8.7H, Albumin 1.9L, Globulin 6.8, Albumin/Globulin Ratio 0.3L Height (Feet): 5 Height (Inches): 1.00 Weight (Pounds): 90 General Appearance: no apparent distress Objective no change William Blackwood MD Feb 16, 2019 08:54
[2019-02-16] MEDS: Heparin 5000 units/ml inj SUBQ SCH ×2 (08:56→21:02)
--- NOTE | 2019-02-16 09:53 | NUR ---
NURSE NOTES: called reta from [facility]d re hd order for today, awaiting call back.
[2019-02-16 12:00] VITALS: BP 93/76
--- NOTE | 2019-02-16 12:44 | Orthopedic Progress Note ---
Orthopedic - Progress Note Subjective Symptoms: c/o shoulder pain Additional Comments Non-communicative. Trying to be fed bedside at this time. Objective Last 24 Hour Vital Signs Date Time Temp Pulse Resp B/P (MAP) Pulse Ox O2 Delivery O2 Flow Rate FiO2 02/16/19 12:00 98.1 79 18 93/76 (82) 98 02/16/19 09:00 Room Air 02/16/19 08:33 86 136/65 02/16/19 08:33 86 136/65 02/16/19 08:00 97.6 100 18 146/74 (98) 96 02/16/19 04:00 97.9 86 18 136/65 (88) 94 02/16/19 00:00 97.4 85 18 149/72 (97) 95 02/15/19 22:23 90 156/82 02/15/19 21:00 Room Air 02/15/19 20:00 97.5 87 18 158/74 (102) 94 02/15/19 17:42 76 162/79 02/15/19 15:53 97.1 76 18 162/79 (106) 95 Intake and Output 02/15/19 02/16/19 19:00 07:00 Intake Total 134 ml 120 ml Output Total 0 ml Balance 134 ml 120 ml Intake Oral 134 ml 120 ml Output Drainage Total 0 ml # Voids 2 Laboratory Tests Test 02/16/19 04:53 White Blood Count 10.2 K/UL (4.8-10.8) Red Blood Count 2.99 M/UL (4.20-5.40) L Hemoglobin 8.6 G/DL (12.0-16.0) L Hematocrit 27.7 % (37.0-47.0) L Mean Corpuscular Volume 93 FL (80-99) Mean Corpuscular Hemoglobin 28.8 PG (27.0-31.0) Mean Corpuscular Hemoglobin Concent 31.1 G/DL (32.0-36.0) L Red Cell Distribution Width 15.3 % (11.6-14.8) H Platelet Count 735 K/UL (150-450) H Mean Platelet Volume 3.9 FL (6.5-10.1) L Neutrophils (%) (Auto) 50.2 % (45.0-75.0) Lymphocytes (%) (Auto) 41.3 % (20.0-45.0) Monocytes (%) (Auto) 5.6 % (1.0-10.0) Eosinophils (%) (Auto) 2.0 % (0.0-3.0) Basophils (%) (Auto) 0.9 % (0.0-2.0) Sodium Level 140 MMOL/L (136-145) Potassium Level 4.6 MMOL/L (3.5-5.1) Chloride Level 102 MMOL/L (98-107) Carbon Dioxide Level 24 MMOL/L (21-32) Anion Gap 14 mmol/L (5-15) Blood Urea Nitrogen 45 mg/dL (7-18) H Creatinine 4.7 MG/DL (0.55-1.30) H Estimat Glomerular Filtration Rate mL/min (>60) Glucose Level 128 MG/DL (74-106) H Uric Acid 6.3 MG/DL (2.6-7.2) Calcium Level 9.7 MG/DL (8.5-10.1) Phosphorus Level 7.3 MG/DL (2.5-4.9) H Magnesium Level 2.1 MG/DL (1.8-2.4) Total Bilirubin 0.4 MG/DL (0.2-1.0) Aspartate Amino Transf (AST/SGOT) 14 U/L (15-37) L Alanine Aminotransferase (ALT/SGPT) 8 U/L (12-78) L Alkaline Phosphatase 114 U/L (46-116) C-Reactive Protein, Quantitative 13.2 mg/dL (0.00-0.90) H Pro-B-Type Natriuretic Peptide 97302 pg/mL (0-125) H Total Protein 8.7 G/DL (6.4-8.2) H Albumin 1.9 G/DL (3.4-5.0) L Globulin 6.8 g/dL Albumin/Globulin Ratio 0.3 (1.0-2.7) L Wound: clean, intact Drains: wound vac Neuro Status: normal Vascular Status: normal Additional Comments Right shoulder wound site with no surrounding erythema. VAC in place Assessment Post-op Diagnosis Right shoulder abscess Procedure Performed Right shoulder abscess I and D and wound VAC application. Plan Plan: other Additional Comments Appreciate Camilo's input and wound care/VAC care Allow marsupialization as wound closes Follow up as outpatient Abel Guzman MD Feb 16, 2019 12:44
--- NOTE | 2019-02-16 14:21 | Infectious Diseases Prog Note ---
"Assessment/Plan Assessment/Plan A 1. right shoulder septic arthritis | subdeltoid abscess s/p i and d 2. hypertension 3. renal failure on HD 4. dementia 5. schizophrenia 6. leucocytosis resolved 7. recent staph aureus sepsis P 1. continue iv vancomycin 2. will follow up cultures Subjective ROS Limited/Unobtainable: Yes Neurologic: Reports: confusion, other - on restraint Allergies: Coded Allergies: No Known Allergies (Unverified , 11/12/18) Objective Vital Signs Last 24 Hour Vital Signs Date Time Temp Pulse Resp B/P (MAP) Pulse Ox O2 Delivery O2 Flow Rate FiO2 02/16/19 12:00 98.1 79 18 93/76 (82) 98 02/16/19 09:00 Room Air 02/16/19 08:33 86 136/65 02/16/19 08:33 86 136/65 02/16/19 08:00 97.6 100 18 146/74 (98) 96 02/16/19 04:00 97.9 86 18 136/65 (88) 94 02/16/19 00:00 97.4 85 18 149/72 (97) 95 02/15/19 22:23 90 156/82 02/15/19 21:00 Room Air 02/15/19 20:00 97.5 87 18 158/74 (102) 94 02/15/19 17:42 76 162/79 02/15/19 15:53 97.1 76 18 162/79 (106) 95 Height (Feet): 5 Height (Inches): 1.00 Weight (Pounds): 90 General Appearance: no acute distress HEENT: mucous membranes moist Respiratory/Chest: lungs clear Cardiovascular: normal rate, other - right permacath Abdomen: soft, non tender Extremities: no edema Skin: other - right shoulder woundvac Neurologic/Psychiatric: other - sleeping Laboratory Tests Test 02/16/19 04:53 White Blood Count 10.2 K/UL (4.8-10.8) Red Blood Count 2.99 M/UL (4.20-5.40) L Hemoglobin 8.6 G/DL (12.0-16.0) L Hematocrit 27.7 % (37.0-47.0) L Mean Corpuscular Volume 93 FL (80-99) Mean Corpuscular Hemoglobin 28.8 PG (27.0-31.0) Mean Corpuscular Hemoglobin Concent 31.1 G/DL (32.0-36.0) L Red Cell Distribution Width 15.3 % (11.6-14.8) H Platelet Count 735 K/UL (150-450) H Mean Platelet Volume 3.9 FL (6.5-10.1) L Neutrophils (%) (Auto) 50.2 % (45.0-75.0) Lymphocytes (%) (Auto) 41.3 % (20.0-45.0) Monocytes (%) (Auto) 5.6 % (1.0-10.0) Eosinophils (%) (Auto) 2.0 % (0.0-3.0) Basophils (%) (Auto) 0.9 % (0.0-2.0) Sodium Level 140 MMOL/L (136-145) Potassium Level 4.6 MMOL/L (3.5-5.1) Chloride Level 102 MMOL/L (98-107) Carbon Dioxide Level 24 MMOL/L (21-32) Anion Gap 14 mmol/L (5-15) Blood Urea Nitrogen 45 mg/dL (7-18) H Creatinine 4.7 MG/DL (0.55-1.30) H Estimat Glomerular Filtration Rate mL/min (>60) Glucose Level 128 MG/DL (74-106) H Uric Acid 6.3 MG/DL (2.6-7.2) Calcium Level 9.7 MG/DL (8.5-10.1) Phosphorus Level 7.3 MG/DL (2.5-4.9) H Magnesium Level 2.1 MG/DL (1.8-2.4) Total Bilirubin 0.4 MG/DL (0.2-1.0) Aspartate Amino Transf (AST/SGOT) 14 U/L (15-37) L Alanine Aminotransferase (ALT/SGPT) 8 U/L (12-78) L Alkaline Phosphatase 114 U/L (46-116) C-Reactive Protein, Quantitative 13.2 mg/dL (0.00-0.90) H Pro-B-Type Natriuretic Peptide 98754 pg/mL (0-125) H Total Protein 8.7 G/DL (6.4-8.2) H Albumin 1.9 G/DL (3.4-5.0) L Globulin 6.8 g/dL Albumin/Globulin Ratio 0.3 (1.0-2.7) L Current Medications Medications (Trade) Dose Ordered Sig/Javier Route PRN Reason Start Time Stop Time Status Last Admin Dose Admin Acetaminophen (Tylenol) 650 mg Q4H PRN ORAL Mild Pain/Temp > 100.5 02/11/19 00:45 03/13/19 00:44 02/14/19 06:14 Acetaminophen/ Hydrocodone Bitart ([place] 10/325) 1 tab Q4H PRN ORAL For Pain 02/11/19 13:45 02/18/19 13:44 02/15/19 08:25 Amlodipine Besylate (Norvasc) 5 mg BID ORAL 02/11/19 09:00 03/13/19 08:59 02/16/19 08:33 Carvedilol (Coreg) 3.125 mg EVERY 12 HOURS ORAL 02/11/19 09:00 03/13/19 08:59 02/16/19 08:33 Clonidine HCl (Catapres TTS-1) 1 patch QWEEK TDERMAL 02/14/19 09:00 03/16/19 08:59 02/14/19 08:54 Epoetin Thomas (Epoetin Thomas(ESRD on dialysis)) 10,000 unit THU-THU-THU SUBQ 02/14/19 21:00 03/16/19 20:59 02/14/19 21:13 Heparin Sodium (Porcine) (Heparin 5000 units/ml) 5,000 units EVERY 12 HOURS SUBQ 02/11/19 21:00 03/13/19 20:59 02/16/19 08:56 Levothyroxine Sodium (Synthroid) 50 mcg DAILY@0630 ORAL 02/11/19 06:30 03/13/19 06:29 02/16/19 05:47 Liothyronine Sodium (Cytomel) 5 mcg ACBREAKFAST ORAL 02/13/19 09:00 03/15/19 08:59 02/16/19 05:47 Olanzapine (ZyPREXA) 2.5 mg BID ORAL 02/11/19 00:45 03/13/19 00:44 02/16/19 08:33 Olanzapine (ZyPREXA) 2.5 mg QHS ORAL 02/11/19 21:00 03/13/19 20:59 02/15/19 22:23 Pantoprazole (Protonix) 40 mg DAILY ORAL 02/11/19 09:00 03/13/19 08:59 02/16/19 08:33 Sevelamer Carbonate (Renvela) 1,600 mg THREE TIMES A DAY ORAL 02/16/19 09:00 03/13/19 08:59 02/16/19 12:36 Vancomycin HCl (Vanco rx to dose) 1 ea DAILY PRN MISC Per rx protocol 02/11/19 00:45 03/13/19 00:44 Warren Parks MD Feb 16, 2019 14:21"
--- NOTE | 2019-02-16 14:27 | Surgery Progress Note ---
Surgery Progress Note Subjective Additional Comments Discussed care plan with orthopedic surgeon Dr. Guzman this morning. Wound VAC required being changed recently from malfunction. New dressings applied. Wound clean and intact. Operative findings noted. We will continue with localized wound care and antibiotics. Objective Last 24 Hour Vital Signs Date Time Temp Pulse Resp B/P (MAP) Pulse Ox O2 Delivery O2 Flow Rate FiO2 02/16/19 12:00 98.1 79 18 93/76 (82) 98 02/16/19 09:00 Room Air 02/16/19 08:33 86 136/65 02/16/19 08:33 86 136/65 02/16/19 08:00 97.6 100 18 146/74 (98) 96 02/16/19 04:00 97.9 86 18 136/65 (88) 94 02/16/19 00:00 97.4 85 18 149/72 (97) 95 02/15/19 22:23 90 156/82 02/15/19 21:00 Room Air 02/15/19 20:00 97.5 87 18 158/74 (102) 94 02/15/19 17:42 76 162/79 02/15/19 15:53 97.1 76 18 162/79 (106) 95 I&O Intake and Output 02/15/19 02/16/19 19:00 07:00 Intake Total 134 ml 120 ml Output Total 0 ml Balance 134 ml 120 ml Intake Oral 134 ml 120 ml Output Drainage Total 0 ml # Voids 2 Dressing: dry Wound: clean Cardiovascular: RSR Respiratory: clear Abdomen: soft, flat, non-tender, present bowel sounds Extremities: no edema, no tenderness, no cyanosis, pulses, other Laboratory Tests Test 02/16/19 04:53 White Blood Count 10.2 K/UL (4.8-10.8) Red Blood Count 2.99 M/UL (4.20-5.40) L Hemoglobin 8.6 G/DL (12.0-16.0) L Hematocrit 27.7 % (37.0-47.0) L Mean Corpuscular Volume 93 FL (80-99) Mean Corpuscular Hemoglobin 28.8 PG (27.0-31.0) Mean Corpuscular Hemoglobin Concent 31.1 G/DL (32.0-36.0) L Red Cell Distribution Width 15.3 % (11.6-14.8) H Platelet Count 735 K/UL (150-450) H Mean Platelet Volume 3.9 FL (6.5-10.1) L Neutrophils (%) (Auto) 50.2 % (45.0-75.0) Lymphocytes (%) (Auto) 41.3 % (20.0-45.0) Monocytes (%) (Auto) 5.6 % (1.0-10.0) Eosinophils (%) (Auto) 2.0 % (0.0-3.0) Basophils (%) (Auto) 0.9 % (0.0-2.0) Sodium Level 140 MMOL/L (136-145) Potassium Level 4.6 MMOL/L (3.5-5.1) Chloride Level 102 MMOL/L (98-107) Carbon Dioxide Level 24 MMOL/L (21-32) Anion Gap 14 mmol/L (5-15) Blood Urea Nitrogen 45 mg/dL (7-18) H Creatinine 4.7 MG/DL (0.55-1.30) H Estimat Glomerular Filtration Rate mL/min (>60) Glucose Level 128 MG/DL (74-106) H Uric Acid 6.3 MG/DL (2.6-7.2) Calcium Level 9.7 MG/DL (8.5-10.1) Phosphorus Level 7.3 MG/DL (2.5-4.9) H Magnesium Level 2.1 MG/DL (1.8-2.4) Total Bilirubin 0.4 MG/DL (0.2-1.0) Aspartate Amino Transf (AST/SGOT) 14 U/L (15-37) L Alanine Aminotransferase (ALT/SGPT) 8 U/L (12-78) L Alkaline Phosphatase 114 U/L (46-116) C-Reactive Protein, Quantitative 13.2 mg/dL (0.00-0.90) H Pro-B-Type Natriuretic Peptide 44867 pg/mL (0-125) H Total Protein 8.7 G/DL (6.4-8.2) H Albumin 1.9 G/DL (3.4-5.0) L Globulin 6.8 g/dL Albumin/Globulin Ratio 0.3 (1.0-2.7) L Plan Problems: (1) Septic arthritis Assessment & Plan: Right subacromial/subdeltoid bursal effusion with multiple bubbles of air; In the absence of any recent surgery or other intervention, the fluid is likely infected and suspicious for abscess. Smaller glenohumeral joint effusion may be infected as well. The two spaces may communicate. Findings consistent with the given history of septic shoulder. Arthrosis of the glenohumeral joint. Right pleural effusion Old granulomatous disease Right jugular dialysis catheter. on IV abx labs noted s/p right shoulder washout and vac placement next wound vac change Thursday (2) Malnutrition Assessment & Plan: DAILY ESTIMATED NEEDS: Needs based on Wounds, DM, ESRD+ HD/ 36.4kg 35-40 kcals/kg 3452-2116 total kcals 1.5-2.0 g protein/kg 55-73 g total protein 20-25 mL/kg 728-910 total fluid mLs NUTRITION DIAGNOSIS: * Increased kcal and protein needs r/t wound healing, underweight status, HD needs as evidenced by stage 4 wound at rt trochanter, pt is underweight per guidelines, generalized moderate wasting, ESRD, now on HD. * Swallowing and chewing difficulty R/T dysphagia, edentulous status as evidenced by pt on pureed moist texture, NTL diet. CURRENT DIET:Renal, pureed moist w/ NTL PO DIET RECOMMENDATIONS: Maintain RENAL DIET (texture per LOAN REVIEW ANALYST or as tolerated) ADDITIONAL RECOMMENDATIONS: 1) Calibrated bed scale wt for accurate CBW -> daily wt monitoring 2) WOUND CARE: add Nephrovite x 1, Balta 1pkt BID 3) Monitor BGs, need for carb controlled diet, hypoglycemics (h/o DM) 4) 4oz Nepro TID w/ meals 5) Monitor lytes closely (3) Wound, open, hip or thigh with complication Assessment & Plan: history of prior large debridement and evacuation of abscess in hip. since been healing slow but well last admission much improved now with continued improvement. apply hydrogel and gauze, cover with foam dressing, do daily and prn will follow with recs thank you (4) Abscess of right hip Camilo James Feb 16, 2019 14:27
[2019-02-16 16:00] VITALS: BP 161/77
--- NOTE | 2019-02-16 19:06 | NUR ---
HAND-OFF: Report given to Parminder SEGUNDO.
--- NOTE | 2019-02-16 19:55 | NUR ---
NURSE NOTES: Patient in bed, awake, confused. Unable to make needs known. Respiration is even and unlabored. Kept clean and comfortable. No s/s of pain or discomfort noted. Abdomen is soft and non distended. Skin is warm, dry, noted with multiple dressings, intact. Wound vac on the right shoulder. Iv site noted. Bed in low and locked position. Call light is at bedside.
[2019-02-16 20:00] VITALS: BP 152/60
[2019-02-16] MEDS: Epoetin Alfa-EPBX(ESRD on dialysis)10,000 unit/ml vial SUBQ SCH (20:59)
[2019-02-17] VITALS (7 sets, daily range): BP systolic 131–164; BP diastolic 55–115
--- NOTE | 2019-02-17 03:30 | Progress Note ---
DATE: 02/16/2019 CARDIOLOGY PROGRESS NOTE SUBJECTIVE: The patient is status post hemodialysis with ultrafiltration. She remains on IV antimicrobials. Replacement of her PermCath is planned due to Staph aureus bacteremia. She is status post shoulder I and D with wound VAC in place on the right. OBJECTIVE: VITAL SIGNS: Blood pressure 136/65, pulse 86, respirations 18, no fevers. CHEST: Right chest wall PermCath in place. LUNGS: Clear. CARDIAC: Regular. ABDOMEN: Soft. EXTREMITIES: Shoulder site with dressing. No edema. LABORATORY DATA: White count 10, hemoglobin 8.6. BUN 45 and creatinine 4.7. Natriuretic peptide is 16,000. Albumin 1.9. IMPRESSION: 1. Staph aureus bacteremia, status post I and D of right shoulder abscess. 2. Increased risk for endocarditis due to bacteremia and chronic illness. 3. End-stage renal disease. 4. Acute on chronic diastolic congestive heart failure. 5. Hypertensive heart disease. PLAN: 1. Antimicrobials. 2. Wound VAC. 3. Hemodialysis with ultrafiltration. 4. Replacement of PermCath. 5. Echocardiogram. Abel Stubbs M.D. DR: BOOM JOB#: [id number] CC:
[2019-02-17] MEDS: Liothyronine 5mcg tab ORAL SCH (05:32)
--- NOTE | 2019-02-17 06:02 | NUR ---
NURSE NOTES: Wound wac continuous suction 125, no drainage noted.
--- NOTE | 2019-02-17 07:29 | NUR ---
HAND-OFF: Report given to SANYA Keyes.
--- NOTE | 2019-02-17 07:35 | NUR ---
NURSE NOTES: Received report from Parminder/RN, Patient is asleep, Lying semi-barahona's, resting comfortably. On room air, No acute distress/SOB noted. IV on left upper arm, patent, no bleeding or infiltration noted. Bed in low position and locked, Bed alarm and break on. Call light within reach. Will continue plan of care.
[2019-02-17] MEDS: OLANZapine 2.5mg tab ORAL SCH ×3 (09:44→21:00)
[2019-02-17] MEDS: Heparin 5000 units/ml inj SUBQ SCH ×2 (09:46→21:00)
[2019-02-17] MEDS ORDERED: Vancomycin 750mg/NS 275ml IVPB SCH ×2 (10:00)
--- NOTE | 2019-02-17 11:25 | Nephrology Progress Note ---
Assessment/Plan Problem List: (1) ESRD (end stage renal disease) (2) Malnutrition (3) Septic arthritis Assessment: right shoulder (4) Diabetes mellitus (5) Anemia in CKD (chronic kidney disease) Assessment (1) ESRD (end stage renal disease) (2) Diabetes mellitus (3) Failure to thrive (0-17) severe malnutrition (4) Anemia in CKD (chronic kidney disease) (5) Hypertensive kidney disease (6) h/o Staphylococcus aureus bacteremia - septic shoulder . h/o right hip abcess Plan surveillence blood cultures are negative up dose renvela surveillence BC done - results pending Check labs- keep bp and BS in check HD today 02/16 next ? 02/19 vancomycin- monitor levels per ID ortho intervention for I&D done per orders Subjective ROS Limited/Unobtainable: No Constitutional: Reports: malaise Objective Objective Last 24 Hour Vital Signs Date Time Temp Pulse Resp B/P (MAP) Pulse Ox O2 Delivery O2 Flow Rate FiO2 02/17/19 09:44 80 164/115 02/17/19 09:44 80 164/115 02/17/19 08:00 96.9 80 18 164/115 (131) 95 02/17/19 03:54 98.0 86 16 155/80 (105) 96 02/17/19 00:00 98.6 72 20 131/55 (80) 97 02/16/19 20:59 69 152/60 02/16/19 20:43 Room Air 02/16/19 20:00 98.2 69 20 152/60 (90) 100 02/16/19 17:01 75 161/77 02/16/19 16:00 98.2 75 20 161/77 (105) 98 02/16/19 12:00 98.1 79 18 93/76 (82) 98 Intake and Output 02/16/19 02/17/19 18:59 06:59 Intake Total 180 ml Output Total 1000 ml 750 ml Balance -820 ml -750 ml Intake Oral 180 ml Output Urine Total 750 ml Drainage Total 0 ml Hemodialysis UF 1000 ml # Voids 6 # Bowel Movements 1 Laboratory Tests 02/17/19 04:40: Random Vancomycin Level 11.1 Height (Feet): 5 Height (Inches): 1.00 Weight (Pounds): 90 General Appearance: no apparent distress Cardiovascular: normal rate Respiratory/Chest: decreased breath sounds Abdomen: soft Objective no change William Blackwood MD Feb 17, 2019 11:25
--- NOTE | 2019-02-17 13:37 | NUR ---
DISCHARGE PLANNING DISCHARGE ORDER NOTED FAXED CLINICALS TO [facility] REQUESTED THEY OBTAIN A WOUND VAC PLACED [facility] WOUND VAC FORM IN CHART FOR DR MONAHAN TO COMPLETE ONCE WOUND VAC IS IN PLACE AT SNF WE CAN THEN DISCHARGE THE PATIENT WITH MINIMAL INTERRUPTION OF CARE
--- NOTE | 2019-02-17 15:06 | NUR ---
DISCHARGE PLANNED THIS RETAIL MARKETING MANAGER SPOKE WITH SNF INTERNAL CONTROL MANAGER~ BREE Cooney WHO CONFIRMED THEY HAVE A WOUND VAC IN PLACE AND CAN ACCEPT PATIENT TODAY DISCHARGING TO [facility] ROOM 12B SKILLED T: [phone] FOR NURSE TO NURSE REPORT [facility] HAS BEEN ARRANGED FOR 1730 ODD SHOE EXAMINER
--- NOTE | 2019-02-17 15:09 | NUR ---
NURSE NOTES: ID notified of discharge. New orders received.
--- NOTE | 2019-02-17 15:14 | Infectious Diseases Prog Note ---
"Assessment/Plan Assessment/Plan A 1. right shoulder septic arthritis | subdeltoid abscess s/p i and d 2. hypertension 3. renal failure on HD 4. dementia 5. schizophrenia 6. leucocytosis resolved 7. 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 continue iv vancomycin X 3 weeks at time of HD 2. Check Vancomycin level weekly 3. agree with discharge Subjective ROS Limited/Unobtainable: Yes Constitutional: Denies: fever Allergies: Coded Allergies: No Known Allergies (Unverified , 11/12/18) Objective Vital Signs Last 24 Hour Vital Signs Date Time Temp Pulse Resp B/P (MAP) Pulse Ox O2 Delivery O2 Flow Rate FiO2 02/17/19 12:00 98.2 68 18 148/76 (100) 95 02/17/19 09:44 80 164/115 02/17/19 09:44 80 164/115 02/17/19 09:00 Room Air 02/17/19 08:00 96.9 80 18 164/115 (131) 95 02/17/19 03:54 98.0 86 16 155/80 (105) 96 02/17/19 00:00 98.6 72 20 131/55 (80) 97 02/16/19 20:59 69 152/60 02/16/19 20:43 Room Air 02/16/19 20:00 98.2 69 20 152/60 (90) 100 02/16/19 17:01 75 161/77 02/16/19 16:00 98.2 75 20 161/77 (105) 98 Height (Feet): 5 Height (Inches): 1.00 Weight (Pounds): 90 General Appearance: no acute distress HEENT: mucous membranes moist Respiratory/Chest: lungs clear Cardiovascular: normal rate, other - Permacath Abdomen: soft, non tender Extremities: no edema Skin: other - R shoulder wound-vac Neurologic/Psychiatric: other - sleeping Microbiology Date/Time Source Procedure Growth Status 02/15/19 13:42 Blood Blood Culture - Preliminary NO GROWTH AFTER 24 HOURS Resulted 02/15/19 13:35 Blood Blood Culture - Preliminary NO GROWTH AFTER 24 HOURS Resulted Laboratory Tests Test 02/17/19 04:40 Random Vancomycin Level 11.1 ug/mL Current Medications Medications (Trade) Dose Ordered Sig/Javier Route PRN Reason Start Time Stop Time Status Last Admin Dose Admin Acetaminophen (Tylenol) 650 mg Q4H PRN ORAL Mild Pain/Temp > 100.5 02/11/19 00:45 03/13/19 00:44 02/14/19 06:14 Acetaminophen/ Hydrocodone Bitart (Welsh 10/325) 1 tab Q4H PRN ORAL For Pain 02/11/19 13:45 02/18/19 13:44 02/15/19 08:25 Amlodipine Besylate (Norvasc) 5 mg BID ORAL 02/11/19 09:00 03/13/19 08:59 02/17/19 09:44 Carvedilol (Coreg) 3.125 mg EVERY 12 HOURS ORAL 02/11/19 09:00 03/13/19 08:59 02/17/19 09:44 Clonidine HCl (Catapres TTS-1) 1 patch QWEEK TDERMAL 02/14/19 09:00 03/16/19 08:59 02/14/19 08:54 Epoetin Thomas (Epoetin Thomas(ESRD on dialysis)) 10,000 unit THU-THU-THU SUBQ 02/14/19 21:00 03/16/19 20:59 02/16/19 20:59 Heparin Sodium (Porcine) (Heparin 5000 units/ml) 5,000 units EVERY 12 HOURS SUBQ 02/11/19 21:00 03/13/19 20:59 02/17/19 09:46 Levothyroxine Sodium (Synthroid) 50 mcg DAILY@0630 ORAL 02/11/19 06:30 03/13/19 06:29 02/17/19 05:32 Liothyronine Sodium (Cytomel) 5 mcg ACBREAKFAST ORAL 02/13/19 09:00 03/15/19 08:59 02/17/19 05:32 Olanzapine (ZyPREXA) 2.5 mg BID ORAL 02/11/19 00:45 03/13/19 00:44 02/17/19 09:44 Olanzapine (ZyPREXA) 2.5 mg QHS ORAL 02/11/19 21:00 03/13/19 20:59 02/16/19 20:59 Pantoprazole (Protonix) 40 mg DAILY ORAL 02/11/19 09:00 03/13/19 08:59 02/17/19 09:43 Sevelamer Carbonate (Renvela) 1,600 mg THREE TIMES A DAY ORAL 02/16/19 09:00 03/13/19 08:59 02/17/19 13:54 Vancomycin HCl (Vanco rx to dose) 1 ea DAILY PRN MISC Per rx protocol 02/11/19 00:45 03/13/19 00:44 Warren Parks MD Feb 17, 2019 15:14"
--- NOTE | 2019-02-17 15:28 | NUR ---
NURSE NOTES: Called [facility] at and give Report to Domonique/SANYA.
--- NOTE | 2019-02-17 15:57 | Surgery Progress Note ---
Surgery Progress Note Subjective Symptoms: improved, tolerating diet, voiding well Objective Last 24 Hour Vital Signs Date Time Temp Pulse Resp B/P (MAP) Pulse Ox O2 Delivery O2 Flow Rate FiO2 02/17/19 12:00 98.2 68 18 148/76 (100) 95 02/17/19 09:44 80 164/115 02/17/19 09:44 80 164/115 02/17/19 09:00 Room Air 02/17/19 08:00 96.9 80 18 164/115 (131) 95 02/17/19 03:54 98.0 86 16 155/80 (105) 96 02/17/19 00:00 98.6 72 20 131/55 (80) 97 02/16/19 20:59 69 152/60 02/16/19 20:43 Room Air 02/16/19 20:00 98.2 69 20 152/60 (90) 100 02/16/19 17:01 75 161/77 02/16/19 16:00 98.2 75 20 161/77 (105) 98 I&O Intake and Output 02/16/19 02/17/19 19:00 07:00 Intake Total 180 ml Output Total 1000 ml 750 ml Balance -820 ml -750 ml Intake Oral 180 ml Output Urine Total 750 ml Drainage Total 0 ml Hemodialysis UF 1000 ml # Voids 6 # Bowel Movements 1 Dressing: dry Wound: clean Cardiovascular: RSR Respiratory: clear Abdomen: soft, flat, non-tender, present bowel sounds, other Extremities: no cyanosis, other Laboratory Tests Test 02/17/19 04:40 Random Vancomycin Level 11.1 ug/mL Plan Problems: (1) Septic arthritis Assessment & Plan: Right subacromial/subdeltoid bursal effusion with multiple bubbles of air; In the absence of any recent surgery or other intervention, the fluid is likely infected and suspicious for abscess. Smaller glenohumeral joint effusion may be infected as well. The two spaces may communicate. Findings consistent with the given history of septic shoulder. Arthrosis of the glenohumeral joint. Right pleural effusion Old granulomatous disease Right jugular dialysis catheter. on IV abx labs noted s/p right shoulder washout and vac placement next wound vac change Thursday (2) Malnutrition Assessment & Plan: DAILY ESTIMATED NEEDS: Needs based on Wounds, DM, ESRD+ HD/ 36.4kg 35-40 kcals/kg 9098-5639 total kcals 1.5-2.0 g protein/kg 55-73 g total protein 20-25 mL/kg 728-910 total fluid mLs NUTRITION DIAGNOSIS: * Increased kcal and protein needs r/t wound healing, underweight status, HD needs as evidenced by stage 4 wound at rt trochanter, pt is underweight per guidelines, generalized moderate wasting, ESRD, now on HD. * Swallowing and chewing difficulty R/T dysphagia, edentulous status as evidenced by pt on pureed moist texture, NTL diet. CURRENT DIET:Renal, pureed moist w/ NTL PO DIET RECOMMENDATIONS: Maintain RENAL DIET (texture per [employer] TILE FLOOR LAYER or as tolerated) ADDITIONAL RECOMMENDATIONS: 1) Calibrated bed scale wt for accurate CBW -> daily wt monitoring 2) WOUND CARE: add Nephrovite x 1, Balta 1pkt BID 3) Monitor BGs, need for carb controlled diet, hypoglycemics (h/o DM) 4) 4oz Nepro TID w/ meals 5) Monitor lytes closely (3) Wound, open, hip or thigh with complication Assessment & Plan: history of prior large debridement and evacuation of abscess in hip. since been healing slow but well last admission much improved now with continued improvement. apply hydrogel and gauze, cover with foam dressing, do daily and prn will follow with recs thank you (4) Abscess of right hip Additional Comments plan for vac change tomorrow d/c planning will d/c to snf with vac Camilo James Feb 17, 2019 15:57
[2019-02-17] MEDS ORDERED: VANCOMYCIN (16:08)
--- NOTE | 2019-02-17 19:40 | NUR ---
NURSE NOTES: Received report from SANYA Keyes, Patient is asleep, Lying semi-barahona's, resting comfortably. On room air, No acute distress/SOB noted. bilateral roft wrist restraints on, skin intact under wrist restraints. Bed in low position and locked, Bed alarm on, side rails x3. Call light within reach. Will continue plan of care. Pt to be transferred and discharged to return to the facility she came from this evening
--- NOTE | 2019-02-17 20:07 | NUR ---
HAND-OFF: Report given to Lashon/RN, Patient is asleep, in stable condition. No acute distress. Endorsed plan of care .
--- NOTE | 2019-02-17 21:39 | NUR ---
NURSE NOTES: Removed wound vac with the assistance of [facility] wound care as pt is being discharged, Applied wet to dry dressing to right shoulder where wound vac was. In report was told pt will have a different wound vac at the facility she will be returning to this evening. New dressing is clean, dry and intact.
--- NOTE | 2019-02-17 21:45 | Discharge Summary ---
DATE OF ADMISSION: 02/10/2019 DATE OF DISCHARGE: 02/17/2019 ADMISSION DIAGNOSES: 1. Possible right shoulder septic arthritis. 2. History of schizophrenia. 3. End-stage renal disease. 4. Hypertension. 5. History of hip abscess. DISCHARGE DIAGNOSES: 1. Possible right shoulder septic arthritis. 2. History of schizophrenia. 3. End-stage renal disease. 4. Hypertension. 5. History of hip abscess. HOSPITAL COURSE: The patient is a 78-year-old female, who presented with complaints of right shoulder pain and swelling. There was concern about a possible septic arthritis. She had a CAT scan that showed fluid in the right shoulder, unclear if the joint was actually involved. Orthopedic consultation was obtained. The patient underwent an I and D of the right shoulder that showed a subdeltoid abscess without joint involvement. The patient will be discharged back to nursing home facility. She will complete an additional 2 weeks of IV antibiotic therapy. DISCHARGE MEDICATIONS: Please see discharge medication list for discharge medications. DIET: Renal diet. ACTIVITIES: Ad-mindi. FOLLOWUP: The patient will follow up in one to two days at the nursing home facility. Nate Beltran M.D. DR: JADIEL JOB#: [id number] CC:
--- NOTE | 2019-02-17 22:30 | NUR ---
NURSE NOTES: Pt is in stable condition, being transferred back to [facility] with [facility]. No belongings in pt room, belonging list signed. report previously given to Sandy at 1526 and pt will be going to bed 12B
--- NOTE | 2019-02-18 04:00 | Progress Note ---
DATE: 02/17/2019 CARDIOLOGY PROGRESS NOTE SUBJECTIVE: The patient is continued on antimicrobials intravenously for several weeks to complete treatment for bacteremia with indwelling dialysis catheter. Blood pressure parameters are high normal range. OBJECTIVE: VITAL SIGNS: Otherwise, vitals are stable. LUNGS: Clear. CHEST WALL: Without drainage at catheter site. Right shoulder has dressing and wound VAC in place. CARDIAC: Regular. No new murmur. ABDOMEN: Soft. EXTREMITIES: Otherwise are without edema. IMPRESSION: Progressing. PLAN: 1. Surveillance cultures. If positive, may need to pursue a transesophageal echocardiogram and PermCath line replacement. hemodialysis and ultrafiltration for volume management. 2. Continue pain control, wound care, and wound VAC. 3. Maintain current antihypertensives. 4. PRN medications on board for blood pressure spikes. 5. Avoid tight blood pressure control due to significant risk of orthostasis in this clinical setting. 6. Stable for completion of care and recovery at a group home facility. 7. We will follow as needed. Abel Stubbs M.D. DR: ALICIA JOB#: [id number] CC:
--- NOTE | 2019-02-21 08:52 | Cardiology Report ---
APPROVED REPORT EXAM: Two-dimensional and M-mode echocardiogram with Doppler and color Doppler. INDICATION ENDOCARDITIS M-Mode DIMENSIONS IVSd1.0 (0.7-1.1cm)Left Atrium (MM)3.5 (1.6-4.0cm) LVDd3.9 (3.5-5.6cm)Aortic Root2.6 (2.0-3.7cm) PWd1.0 (0.7-1.1cm)Aortic Cusp Exc.1.8 (1.5-2.0cm) IVSs1.6 cm LVDs2.1 (2.5-4.0cm) PWs1.5 cm Normal left ventricular chamber size, systolic function and wall motion . Left ventricular ejection fraction estimated to be 55- 60 %. Mild left ventricular hypertrophy. No evidence of pericardial effusion. All other cardiac chamber sizes are within normal limits. Thickened mitral valve leaflets with normal excursion. Focal aortic valve sclerosis with adequate cusp excursion. Mitral annulus and aortic root calcification. Normal pulmonic valve structure. Normal tricuspid valve structure. IVC at normal size with physiologic collapse. A color flow and spectral Doppler study was performed and revealed: No aortic insufficiency. Mild mitral regurgitation. Mitral diastolic velocities suggest reduced left ventricular relaxation c/w mild LV diastolic dysfunction (Grade I ) Trace tricuspid regurgitation. Tricuspid systolic velocities suggests peak right ventricular systolic pressure of 17 mmHg.
== END 2019-02-17 22:35 | DRG 500 ==
LOC: 4E 02-10 21:53 → OBSVTOIN 02-10 21:53 → INTOOBSV 02-10 21:53 → 4E 02-10 22:55
PROC: 0K950ZZ Drainage of Right Shoulder Muscle, Open Approach (ICD-10-PCS; principal; 2019-02-13 13:00)
PROC: 5A1D70Z Performance of Urinary Filtration, Intermittent, Less than 6 Hours Per Day (ICD-10-PCS; 2019-02-14)
DX: M60.011 Infective myositis, right shoulder (principal); N18.6 End stage renal disease; E43 Unspecified severe protein-calorie malnutrition; I50.33 Acute on chronic diastolic (congestive) heart failure; M00.811 Arthritis due to other bacteria, right shoulder; I13.2 Hypertensive heart and chronic kidney disease with heart failure and with stage 5 chronic kidney disease, or end stage renal disease; Z68.1 Body mass index [BMI] 19.9 or less, adult; J90 Pleural effusion, not elsewhere classified; N17.9 Acute kidney failure, unspecified; I50.32 Chronic diastolic (congestive) heart failure; R78.81 Bacteremia; B95.61 Methicillin susceptible Staphylococcus aureus infection as the cause of diseases classified elsewhere; D63.1 Anemia in chronic kidney disease; F20.9 Schizophrenia, unspecified; S71.001A Unspecified open wound, right hip, initial encounter; X58.XXXA Exposure to other specified factors, initial encounter; F03.90 Unspecified dementia, unspecified severity, without behavioral disturbance, psychotic disturbance, mood disturbance, and anxiety; I50.9 Heart failure, unspecified; Z99.2 Dependence on renal dialysis; E11.22 Type 2 diabetes mellitus with diabetic chronic kidney disease; N18.9 Chronic kidney disease, unspecified; D63.8 Anemia in other chronic diseases classified elsewhere; F01.50 Vascular dementia, unspecified severity, without behavioral disturbance, psychotic disturbance, mood disturbance, and anxiety; E07.81 Sick-euthyroid syndrome; Z22.322 Carrier or suspected carrier of Methicillin resistant Staphylococcus aureus
CPT/HCPCS: 36415; 80053; 80061; 80202; 82607; 82728; 82746; 82962; 82977; 83036; 83540; 83550; 83735; 83880; 84100; 84439; 84443; 84481; 84550; 85007; 85025; 85610; 85651; 85730; 86140; 87040; 87070; 87075; 87081; 87181; 87205; 93306; 94003; 94150

== ENCOUNTER 2019-04-13 12:03 | Inpatient (IN) | payer MEDICARE, OTHER ==
[~2019-04-13] VITALS: Ht 156.7 cm; Wt 39.9 kg
[~2019-04-13 12:03] MED LIST changes: +ATIVAN1 MG ORAL; +MEGESTROL ACETAT5 GM PO; +MILK OF MA400 MG/51 ORAL; +NEPHROVITE1 TAB ORAL; +NEPRO CARB STE237 ML PO; +PRO-STAT LIQUID30 ML ORAL; +VANCOMYCIN
--- NOTE | 2019-04-13 20:40 | NUR ---
NURSE NOTES: Pt, female and -Lao, is admitted from [facility] via gurney escorted by 2 local tanker truck driver. Pt is awake but noted aphagia. Eye contacts are intact and is able to answer by yes/no questions. Bed-bound. Noted right shoulder and arm swelling. Noted right upper perma cath inserted state. Site is clean without infection s/s. Noted pressure injury on right hip previous hip surgery area. Provide room orientation. Call light within reach. Will continue to monitor.
[2019-04-13 21:00] VITALS: BP 143/81
--- NOTE | 2019-04-13 21:30 | NUR ---
NURSE NOTES: Done check belongings. Pt's HD schedule is on Tuesdays, and Saturdays. Pt had HD yesterday. Will continue to follow up HD schedule.
--- NOTE | 2019-04-13 22:30 | NUR ---
NURSE NOTES: Receive admission orders from Dr. Beltran. Order noted and carried out. Will continue to monitor.
[2019-04-13] MEDS ORDERED: HydrOXYzine tab 25mg tab ORAL PRN (22:45)
[2019-04-13] MEDS ORDERED: LORazepam 1mg tab ORAL PRN (22:45)
[2019-04-13] MEDS ORDERED: Fleet's Mineral Oil Enema RECTAL PRN (22:45)
[2019-04-13] MEDS ORDERED: Milk of Magnesia 30ml Ud ORAL PRN (22:45)
[2019-04-14] VITALS: BP 175/78
[2019-04-14 04:00] VITALS: BP 169/89
--- NOTE | 2019-04-14 04:00 | NUR ---
NURSE NOTES: No BARON or chest discomfort noted. Clonidine patch is on left upper arm. Incontinent. Sacrum area is clean. But noted dry skin with multiple rash in the body. Apply lotion for comfort. Will continue to monitor.
[2019-04-14 06:10] LABS: BASOPHILS % (AUTO) 0.6 % (0.0-2.0); EOSINOPHILS % (AUTO) 1.5 % (0.0-3.0); HEMATOCRIT 36.1 % (37.0-47.0); HEMOGLOBIN 11.4 G/DL (12.0-16.0); LYMPHOCYTES % (AUTO) 15.4 % (20.0-45.0); MEAN CORPUSCULAR VOLUME 93 FL (80-99); MONOCYTES % (AUTO) 3.8 % (1.0-10.0); NEUTROPHILS % (AUTO) 78.7 % (45.0-75.0); PLATELET COUNT 767 K/UL (150-450); RED BLOOD COUNT 3.89 M/UL (4.20-5.40); RED CELL DISTRIBUTION WIDTH 17.8 % (11.6-14.8); WHITE BLOOD COUNT 17.9 K/UL (4.8-10.8)
[2019-04-14 07:24] LABS: ALANINE AMINOTRANSFERASE 13 U/L (12-78); ALBUMIN 2.1 G/DL (3.4-5.0); ALBUMIN/GLOBULIN RATIO 0.3 (1.0-2.7); ALKALINE PHOSPHATASE 171 U/L (46-116); ANION GAP 12 mmol/L (5-15); ASPARTATE AMINO TRANSFERASE 16 U/L (15-37); BILIRUBIN,TOTAL 0.4 MG/DL (0.2-1.0); BLOOD UREA NITROGEN 51 mg/dL (7-18); CALCIUM 9.7 MG/DL (8.5-10.1); CARBON DIOXIDE 28 MMOL/L (21-32); CHLORIDE 101 MMOL/L (98-107); CREATININE 3.8 MG/DL (0.55-1.30); POTASSIUM 3.9 MMOL/L (3.5-5.1); SODIUM 141 MMOL/L (136-145)
[2019-04-14 08:00] VITALS: BP 172/78
[2019-04-14] MEDS: Heparin 5000 units/ml inj SUBQ SCH ×2 (09:00→20:25)
[2019-04-14] MEDS ORDERED: Vancomycin 750mg/D5W 275ml IVPB SCH ×2 (09:00)
[2019-04-14] MEDS: Megace 400mg/10ml Susp ORAL SCH ×2 (09:43→17:10)
[2019-04-14] MEDS: Nephrovite tab (Rena-Vite) ORAL SCH (09:43)
[2019-04-14] MEDS: OLANZapine 2.5mg tab ORAL SCH ×3 (09:43→17:10)
--- NOTE | 2019-04-14 10:45 | History and Physical Report ---
DATE OF ADMISSION: 04/13/2019 CHIEF COMPLAINT: Possible right septic shoulder arthritis versus cellulitis versus seroma. HISTORY OF PRESENT ILLNESS: The patient is an unfortunate 79-year-old female. She has a history of end-stage renal disease, diabetes, and hypertension. She has a history of chronic anemia and schizophrenia. She was recently hospitalized several months ago with a cellulitis of the shoulder. She did require debridement at that time. The joint was not involved. The patient received a full course of antibiotic therapy with dialysis and had been doing well. Staff noted that there was swelling, induration, and erythema around the anterior aspect of the right shoulder. There are no reports of any fevers or chills. In light of her prior history of infection, she is now admitted for evaluation and care. The patient is a poor historian, cannot provide any history. PAST MEDICAL HISTORY: As above. PAST SURGICAL HISTORY: Includes a history of a shoulder abscess. CURRENT MEDICATIONS: Reconciled and reviewed. ALLERGIES: None. FAMILY HISTORY: None. SOCIAL HISTORY: Negative for tobacco, ethanol, or drugs. REVIEW OF SYSTEMS: Unobtainable as the patient is confused. PHYSICAL EXAMINATION: VITAL SIGNS: Temperature 98 degrees, pulse 74, respirations 18, and blood pressure 143/81. GENERAL: The patient is a thin, elderly female, in no apparent distress. HEART: Regular rate and rhythm. LUNGS: Clear. ABDOMEN: Soft, nontender, nondistended. EXTREMITIES: Without clubbing, cyanosis, or edema. LABORATORY DATA: Labs were significant for white count of 18,000, hemoglobin 11, hematocrit 36, platelets of . Sodium 141, potassium 3.9, BUN 51, creatinine 3.8. CT scan of the shoulder is pending. ASSESSMENT: This is an unfortunate 79-year-old female with a history of end-stage renal disease, schizophrenia, hypertension, and prior history of shoulder cellulitis and abscess, admitted with complaints of right shoulder swelling and induration, concerning for possible recurrent abscess versus cellulitis. PLAN: IV antibiotics. CT scan of the shoulder. Orthopedics followup. Renal and Cardiology consultations to assist the patient's dialysis and blood pressure management. Nate Beltran M.D. DR: JEANNINE JOB#: [id number] CC:
--- NOTE | 2019-04-14 11:13 | Diagnostic Imaging Report ---
Indication: Septic right shoulder. Evaluation of abscess. Follow-up Technique: Continuous helical transaxial imaging of the right shoulder was obtained. Coronal and Sagittal 2-D reformats were also obtained. Study obtained in a Siemens sensation [address] Total Dose length Product (DLP): 562.[address] Dose Index Volume (CTDIvol): 23.6 mGy Comparison: 02/11/2019 CT shoulder Findings: The study is limited by the nonadministration of IV contrast material. There is a heterogeneous mixed attenuation fluid collection with trace air within the subacromial/subdeltoid bursa not as large as on the previous examination from 02/11/2019. There is a anterolateral air-filled surgical skin defect, with an apparent tract probing deeper that may be contiguous with the subdeltoid bursa and fluid. This may be draining. Correlate clinically. Evaluation of this is limited due to the nonadministration of contrast. There is a glenohumeral joint effusion with trace air again noted as well. Interval development of moderate glenohumeral joint destruction demonstrated. The interface between the glenoid rim and humeral head appears eroded and deformed secondary to septic arthritis/osteomyelitis. IMPRESSION: Septic arthritis with interval periarticular erosion of the glenohumeral joint, heterogeneous joint effusion and subacromial/subdeltoid fluid with trace air. Amount of subacromial subdeltoid abscess has improved and may be spontaneously draining through a small defect anterolaterally (appears to be a surgical incision site). However the bony erosions and osteomyelitis has progressed. The CT scanner at [facility] is accredited by the [employer] and the scans are performed using dose optimization techniques as appropriate to a performed exam including Automatic Exposure control.
--- NOTE | 2019-04-14 11:35 | NUR ---
CASE MANAGEMENT:REVIEW 79YR OLD FEMALE BIBA FROM [facility] CC: RECURRING RT SHOULDER SWELLING SI: SEPTIC ARTHRITIS/OSTEOMYELITIS 97.3 72 18 172/78 94% on ra WBC+17.9 BUN+51 CR+3.8 IS: IV VANCOMYCIN X1 HEPARIN SQ Q12 : DIRECT ADMIT TO MED/SURG [facility] DCP: RETURN TO [facility] UPON DISCHARGE
[2019-04-14 12:00] VITALS: BP 130/98
--- NOTE | 2019-04-14 12:02 | NUR ---
RD ASSESSMENT & RECOMMENDATIONS SEE CARE ACTIVITY FOR COMPLETE ASSESSMENT DAILY ESTIMATED NEEDS: Needs based on ESRD+ HD, underweight/ 38kg 35-40 kcals/kg 0414-5785 total kcals 1.2-1.8 g protein/kg 46-68 g total protein 20-22 mL/kg 760-836 total fluid mLs NUTRITION DIAGNOSIS: * Increased kcal and protein needs r/t underweight status, HD needs as evidenced by pt is underweight per guidelines, ESRD, on HD. * Swallowing and chewing difficulty R/T dysphagia, edentulous status as evidenced by pt on pureed moist texture, NTL diet. CURRENT DIET:Renal, pureed moist w/ NTL PO DIET RECOMMENDATIONS: RENAL, CCHO MED DIET (texture per PET TECHNOLOGIST or as tolerated) ADDITIONAL RECOMMENDATIONS: 1) Calibrated bed scale wt for accurate CBW -> daily wt monitoring bedscale wt = 38kg (83.6lbs) vs EMR wt of 75lbs 2) Rec WC eval: R trochanter w/ h/o full thickness wound with tunneling 3) Continue Nephrovite x 1 4) 4oz Nepro TID w/ meals 5) Rec NISS : A1C 7.3 on 02/12/19, BG 201 6) Monitor lytes and renal fxn
--- NOTE | 2019-04-14 13:35 | Consultation ---
Consult Note Consult Note asked to eval for dialysis management Possible right septic shoulder arthritis versus cellulitis versus seroma. examined Yoruba speaker confused HD Tue-Aleja-Sat Permacath + Assessment/Plan (1) ESRD (end stage renal disease) (2) Diabetes mellitus (3) Failure to thrive (0-17) severe malnutrition (4) Anemia in CKD (chronic kidney disease) (5) Hypertensive kidney disease (6) h/o Staphylococcus aureus bacteremia - septic shoulder . h/o right hip abcess check labs keep bp and BS in check HD as needed Inflammatory markers per orders William Blackwood MD Apr 14, 2019 13:35
--- NOTE | 2019-04-14 13:45 | NUR ---
NURSE NOTES: RN called [facility] to schedule dialysis tomorrow as ordered. Spoke to Yanna who stated she will relay the message the [facility] for scheduling. Call back number provided.
--- NOTE | 2019-04-14 15:58 | NUR ---
NURSE NOTES:WOUND CARE NOTES: Pt presented on admission large abscess R shoulder exuding large amt of purulent exudate. Erythema and elevated skin temp noted at affected site. Pt exhibited severe pain by crying out each time R upper ext minimally moved. Pt also noted to have generalized maculopapular rash. Skin is very dry and pt noted to persistently scratch at skin. Phytoplex Skin Nourishing lotion applied. Scattered erythema without induration noted to R and L buttocks. Both heels boggy but blanchable. Small tunneled wound R hip. Unable to assess depth of wound secondary to size of wound . Small amt serous exudate noted. Periwound skin is pink and blanchable. Tx.Plan: Apply Triamcinolone 1% cream to body rash BID. Cleanse R hip with Saline. Apply Optifoam drsg. Change Daily and prn. Apply Moisture Barrier Paste to Buttocks. Cover with Optifoam drsg. Change every 3 days and prn. Apply Cavilon Skin Barrier to Both heels. Cover each heel with Optifoam drsg. Change every 7 days and prn. Reposition at least every 2hours or as tolerated. Off-load heels with pillow.
[2019-04-14 16:00] VITALS: BP 153/69
--- NOTE | 2019-04-14 16:37 | Consultation ---
History of Present Illness General Date patient seen: Apr 14, 2019 Present Illness HPI This is a very unfortunate 79-year-old female well-known to me from prior admissions and care. I initially met patient when she presented with a large extensive hip abscess status post drainage debridement and since it is significantly healed. Last admission patient had wounds from healing requiring care as well as identified to have a septic shoulder requiring orthopedic intervention and wound VAC and care thereafter. Patient has been improving discharged and well. Unfortunately presents with deterioration and possible septic joint again requiring further investigation care and management. Surgery called to evaluate and assist with care. Patient seen, patient evaluated, chart reviewed Allergies: Coded Allergies: No Known Allergies (Unverified , 11/12/18) Medication History Scheduled Amino Acids/Protein Hydrolys (Pro-Stat Liquid), 30 ML ORAL TWICE A DAY, ( Reported) Amlodipine Besylate (Norvasc), 5 MG ORAL BID Carvedilol (Coreg), 3.125 MG ORAL EVERY 12 HOURS Clonidine (Catapres-Tts 1), 1 PATCH TDERMAL QWEEK Levothyroxine Sodium (Synthroid), 50 MCG ORAL DAILY@0630 Lorazepam* (Ativan*), 1 MG ORAL DIALYSIS DAYS, (Reported) Magnesium Hydroxide* (Milk Of Magnesia*), 30 ML ORAL DAILY, (Reported) Megestrol Acetate (Megestrol Acetate), 400 MG ORAL TWICE A DAY Mirtazapine* (Remeron*), 15 MG ORAL BEDTIME, (Reported) Nut.tx.impaired Renal Fxn,Soy (Nepro Carb Steady), 237 ML PO BID, (Reported) Olanzapine (Olanzapine), 2.5 MG ORAL TID Pantoprazole* (Pantoprazole*), 40 MG ORAL DAILY Sevelamer Carbonate* (Renvela*), 800 MG ORAL THREE TIMES A DAY Vitamin B Cmplx/Vit C/Folic AC (Nephro-Milla Tablet), 1 TAB ORAL DAILY, (Reported ) Scheduled PRN Acetaminophen* (Acetaminophen 325MG Tablet*), 650 MG ORAL Q4H PRN for For Pain, (Reported) Bisacodyl (Bisacodyl), 10 MG RC DAILY PRN for Constipation, (Reported) Miscellaneous Medications [vancomyci], (Reported) Patient History Limited by: medical condition History Provided By: Medical Record, PMD Healthcare decision maker N Resuscitation status Full Code Advanced Directive on File Past Medical/Surgical History Past Medical/Surgical History: (1) Urinary retention (2) Diabetes mellitus (3) Septic arthritis (4) Malnutrition (5) ESRD (end stage renal disease) (6) Anemia due to acute blood loss (7) Hypertensive kidney disease (8) Failure to thrive (0-17) (9) Wound, open, hip or thigh with complication (10) Anemia in CKD (chronic kidney disease) (11) Abscess of right hip (12) Renal failure (ARF), acute on chronic (13) Coag negative Staphylococcus bacteremia (14) Staphylococcus aureus bacteremia (15) possible septic arthritis Review of Systems Review of Symptoms General ROS: no weight loss or fever Psychological ROS: no depression or mood changes, no memory loss Ophthalmic ROS: no visual changes or eye irritation ENT ROS: no nasal congestion, hearing loss, dizziness Allergy and Immunology ROS: no allergic symptoms or urticaria Hematological and Lymphatic ROS: no swollen glands, unusual bleeding or bruising Endocrine ROS: no polyuria, polydipsia, weight changes, temperature intolerance Respiratory ROS: no cough, shortness of breath, or wheezing Cardiovascular ROS: no chest pain or dyspnea on exertion Gastrointestinal ROS: denies abdominal pain, bright red blood in stool. Musculoskeletal ROS: no myalgias or arthralgias Neurological ROS: no TIA or stroke symptoms Dermatological ROS: no new or changing skin lesions, rashes or pruritis Unable to obtain given patient awake responsive but not verbal and communicating Physical Exam Physical Exam General appearance: alert, cooperative, no distress, appears stated age Head: Normocephalic, without obvious abnormality, atraumatic Eyes: conjunctivae/corneas clear. PERRL, EOM's intact. Fundi benign Throat: Lips, mucosa, and tongue normal. Teeth and gums normal Neck: supple, symmetrical, trachea midline, no adenopathy, thyroid: not enlarged, symmetric, no tenderness/mass/nodules, no carotid bruit and no JVD Lungs: clear to auscultation bilaterally Heart: regular rate and rhythm, S1, S2 normal, no murmur, click, rub or gallop Abdomen: soft, non-tender. Bowel sounds normal. No masses, no organomegaly Extremities: extremities normal, atraumatic, edema Pulses: 2+ and symmetric Skin: See below Neurologic: Grossly normal Last 24 Hour Vital Signs Date Time Temp Pulse Resp B/P (MAP) Pulse Ox O2 Delivery O2 Flow Rate FiO2 04/14/19 16:00 98.2 67 18 153/69 (97) 94 04/14/19 12:00 98.3 74 17 130/98 (109) 94 04/14/19 09:43 72 172/78 04/14/19 09:43 72 172/78 04/14/19 09:00 Room Air 04/14/19 08:00 97.3 72 18 172/78 (109) 94 04/14/19 04:00 98.5 80 20 169/89 (115) 95 04/14/19 00:00 98.4 79 20 175/78 (110) 96 04/13/19 21:00 Room Air 04/13/19 21:00 98.8 74 18 143/81 (101) 95 04/13/19 21:00 Room Air Intake and Output 04/13/19 04/14/19 18:59 06:59 Intake Total 50 ml Balance 50 ml Intake Oral 50 ml # Voids 2 Laboratory Tests Test 04/14/19 04:20 White Blood Count 17.9 K/UL (4.8-10.8) H Red Blood Count 3.89 M/UL (4.20-5.40) L Hemoglobin 11.4 G/DL (12.0-16.0) L Hematocrit 36.1 % (37.0-47.0) L Mean Corpuscular Volume 93 FL (80-99) Mean Corpuscular Hemoglobin 29.3 PG (27.0-31.0) Mean Corpuscular Hemoglobin Concent 31.6 G/DL (32.0-36.0) L Red Cell Distribution Width 17.8 % (11.6-14.8) H Platelet Count 767 K/UL (150-450) H Mean Platelet Volume 4.0 FL (6.5-10.1) L Neutrophils (%) (Auto) 78.7 % (45.0-75.0) H Lymphocytes (%) (Auto) 15.4 % (20.0-45.0) L Monocytes (%) (Auto) 3.8 % (1.0-10.0) Eosinophils (%) (Auto) 1.5 % (0.0-3.0) Basophils (%) (Auto) 0.6 % (0.0-2.0) Sodium Level 141 MMOL/L (136-145) Potassium Level 3.9 MMOL/L (3.5-5.1) Chloride Level 101 MMOL/L (98-107) Carbon Dioxide Level 28 MMOL/L (21-32) Anion Gap 12 mmol/L (5-15) Blood Urea Nitrogen 51 mg/dL (7-18) H Creatinine 3.8 MG/DL (0.55-1.30) H Estimat Glomerular Filtration Rate mL/min (>60) Glucose Level 201 MG/DL (74-106) H Calcium Level 9.7 MG/DL (8.5-10.1) Total Bilirubin 0.4 MG/DL (0.2-1.0) Aspartate Amino Transf (AST/SGOT) 16 U/L (15-37) Alanine Aminotransferase (ALT/SGPT) 13 U/L (12-78) Alkaline Phosphatase 171 U/L (46-116) H Total Protein 8.7 G/DL (6.4-8.2) H Albumin 2.1 G/DL (3.4-5.0) L Globulin 6.6 g/dL Albumin/Globulin Ratio 0.3 (1.0-2.7) L Microbiology Date/Time Source Procedure Growth Status 04/14/19 00:00 Rectum Received Height (Feet): 5 Height (Inches): 1.70 Weight (Pounds): 80 Medications Current Medications Medications (Trade) Dose Ordered Sig/Javier Route PRN Reason Start Time Stop Time Status Last Admin Dose Admin Acetaminophen (Tylenol) 650 mg Q4H PRN ORAL Mild Pain/Temp > 100.5 04/13/19 22:45 05/13/19 22:44 04/14/19 12:02 Amlodipine Besylate (Norvasc) 5 mg BID@0900,2100 ORAL 04/14/19 09:00 05/14/19 08:59 04/14/19 09:43 Bisacodyl (Dulcolax) 10 mg PRN RECTAL 04/13/19 22:45 05/13/19 22:44 Carvedilol (Coreg) 3.125 mg EVERY 12 HOURS ORAL 04/14/19 09:00 05/14/19 08:59 04/14/19 09:43 Clonidine HCl (Catapres TTS-1) 1 patch QWEEK TDERMAL 04/18/19 09:00 05/18/19 08:59 Heparin Sodium (Porcine) (Heparin 5000 units/ml) 5,000 units EVERY 12 HOURS SUBQ 04/14/19 09:00 05/14/19 08:59 04/14/19 09:00 Hydroxyzine HCl (Atarax) 25 mg PRN PRN ORAL Itching 04/13/19 22:45 05/13/19 22:44 Levothyroxine Sodium (Synthroid) 50 mcg DAILY@0630 ORAL 04/14/19 06:30 05/14/19 06:29 04/14/19 06:26 Lorazepam (Ativan) 1 mg RX-PRE DIALYSIS PRN ORAL For Anxiety 04/13/19 22:45 04/20/19 22:44 Magnesium Hydroxide (Mom) 30 ml PRN PRN ORAL 1ST CHOICE constipation 04/13/19 22:45 05/13/19 22:44 Megestrol Acetate (Megace) 400 mg TWICE A DAY ORAL 04/14/19 09:00 05/14/19 08:59 04/14/19 09:43 Mineral Oil (Fleet's Mineral Oil Enema) 133 ml PRN PRN RECTAL LAST CHOICE constipation 04/13/19 22:45 05/13/19 22:44 Mirtazapine (Remeron) 15 mg BEDTIME ORAL 04/13/19 23:59 05/13/19 23:58 04/14/19 00:45 Olanzapine (ZyPREXA) 2.5 mg TID ORAL 04/14/19 09:00 05/14/19 08:59 04/14/19 12:01 Pantoprazole (Protonix) 40 mg BEFORE BREAKFAST ORAL 04/14/19 06:30 05/14/19 06:29 04/14/19 06:26 Sevelamer Carbonate (Renvela) 800 mg THREE TIMES A DAY ORAL 04/14/19 09:00 05/14/19 08:59 04/14/19 12:01 Vancomycin HCl (Vanco rx to dose) 1 ea DAILY PRN MISC Per rx protocol 04/14/19 07:45 05/14/19 07:44 Vitamin B Complex/ Vit C/Folic Acid (Nephrovite) 1 tab DAILY ORAL 04/14/19 09:00 05/14/19 08:59 04/14/19 09:43 Assessment/Plan Problem List: (1) Septic arthritis ICD Codes: M00.9 - Pyogenic arthritis, unspecified SNOMED: 143602716 (2) Malnutrition Assessment & Plan: DAILY ESTIMATED NEEDS: Needs based on ESRD+ HD, underweight/ 38kg 35-40 kcals/kg 9676-1555 total kcals 1.2-1.8 g protein/kg 46-68 g total protein 20-22 mL/kg 760-836 total fluid mLs NUTRITION DIAGNOSIS: * Increased kcal and protein needs r/t underweight status, HD needs as evidenced by pt is underweight per guidelines, ESRD, on HD. * Swallowing and chewing difficulty R/T dysphagia, edentulous status as evidenced by pt on pureed moist texture, NTL diet. CURRENT DIET:Renal, pureed moist w/ NTL PO DIET RECOMMENDATIONS: RENAL, CCHO MED DIET (texture per MANAGER NEWS or as tolerated) ADDITIONAL RECOMMENDATIONS: 1) Calibrated bed scale wt for accurate CBW -> daily wt monitoring bedscale wt = 38kg (83.6lbs) vs EMR wt of 75lbs 2) Rec WC eval: R trochanter w/ h/o full thickness wound with tunneling 3) Continue Nephrovite x 1 4) 4oz Nepro TID w/ meals 5) Rec NISS : A1C 7.3 on 02/12/19, BG 201 6) Monitor lytes and renal fxn ICD Codes: E46 - Unspecified protein-calorie malnutrition SNOMED: 74278788 (3) Wound, open, hip or thigh with complication Assessment & Plan: Pt presented on admission large abscess R shoulder exuding large amt of purulent exudate. Erythema and elevated skin temp noted at affected site. Pt exhibited severe pain by crying out each time R upper ext minimally moved. Pt also noted to have generalized maculopapular rash. Skin is very dry and pt noted to persistently scratch at skin. Phytoplex Skin Nourishing lotion applied. Scattered erythema without induration noted to R and L buttocks. Both heels boggy but blanchable. Small tunneled wound R hip. Unable to assess depth of wound secondary to size of wound . Small amt serous exudate noted. Periwound skin is pink and blanchable. Tx.Plan: Apply Triamcinolone 1% cream to body rash BID. Cleanse R hip with Saline. Apply Optifoam drsg. Change Daily and prn. Apply Moisture Barrier Paste to Buttocks. Cover with Optifoam drsg. Change every 3 days and prn. Apply Cavilon Skin Barrier to Both heels. Cover each heel with Optifoam drsg. Change every 7 days and prn. Reposition at least every 2hours or as tolerated. Off-load heels with pillow. ICD Codes: S71.009A - Unspecified open wound, unspecified hip, initial encounter; S71.109A - Unspecified open wound, unspecified thigh, initial encounter SNOMED: 92779171 (4) Failure to thrive (0-17) ICD Codes: R62.51 - Failure to thrive (0-17) SNOMED: 620245562 [facility] declaration Camilo James Apr 14, 2019 16:37
[2019-04-14] MEDS: Triamcinolone 0.1% oint TOPIC SCH (18:12)
--- NOTE | 2019-04-14 19:15 | NUR ---
NURSE NOTES: Received report from SANYA Noland. Pt AAO x 1, on room air. Dressing on R shoulder dry and intact. Permacath on R upper chest intact. Fall precaution, aspiration precaution maintained. IV site patent and intact. Noted R arm swelling, skin rashes all over her body. Bed locked, lowest position, alarm on, side rails up x 2, call light within reach. Will continue to monitor.
--- NOTE | 2019-04-14 19:37 | NUR ---
HAND-OFF: Report given to Viri SEGUNDO.
[2019-04-14 20:00] VITALS: BP 155/68
[2019-04-14] MEDS: Carvedilol 6.25mg Tab ORAL SCH (20:24)
[2019-04-15] VITALS: BP 105/70
[2019-04-15 04:00] VITALS: BP 150/64
--- NOTE | 2019-04-15 06:27 | NUR ---
NURSE NOTES: Called [facility] for HD schedule today. Spoke to air twist operator and will leave the message David. Waiting for call back.
--- NOTE | 2019-04-15 07:29 | NUR ---
HAND-OFF: Report given to SANYA Clay.
[2019-04-15 07:31] LABS: BASOPHILS % (AUTO) 0.6 % (0.0-2.0); EOSINOPHILS % (AUTO) 2.4 % (0.0-3.0); HEMOGLOBIN 11.6 G/DL (12.0-16.0); LYMPHOCYTES % (AUTO) 20.9 % (20.0-45.0); MEAN CORPUSCULAR VOLUME 92 FL (80-99); NEUTROPHILS % (AUTO) 72.1 % (45.0-75.0); PLATELET COUNT 735 K/UL (150-450); RED BLOOD COUNT 4.02 M/UL (4.20-5.40); RED CELL DISTRIBUTION WIDTH 17.3 % (11.6-14.8); WHITE BLOOD COUNT 15.3 K/UL (4.8-10.8)
[2019-04-15 07:33] LABS: GAMMA GLUTAMYL TRANSPEPTIDASE 87 U/L (5-85); PHOSPHORUS 5.7 MG/DL (2.5-4.9)
--- NOTE | 2019-04-15 07:40 | NUR ---
NURSE NOTES: recvd pt, Pt is awake and AOx1, pt is on room air with no sign of sob or reso distress. Pt has right chest perma cath, HD scheduled for today with [facility]. IV site is Left FA 22g and SL. Pt is on aspiration precaution, HOB elevated, call light within reach, bed alarm is on, will continue with plan of care.
[2019-04-15 07:44] LABS: ALANINE AMINOTRANSFERASE 12 U/L (12-78); ALBUMIN 2.1 G/DL (3.4-5.0); ALBUMIN/GLOBULIN RATIO 0.3 (1.0-2.7); ALKALINE PHOSPHATASE 138 U/L (46-116); ANION GAP 12 mmol/L (5-15); ASPARTATE AMINO TRANSFERASE 16 U/L (15-37); BILIRUBIN,TOTAL 0.4 MG/DL (0.2-1.0); BLOOD UREA NITROGEN 70 mg/dL (7-18); CALCIUM 9.8 MG/DL (8.5-10.1); CARBON DIOXIDE 32 MMOL/L (21-32); CHLORIDE 100 MMOL/L (98-107); CHOLESTEROL 103 MG/DL (< 200); CREATININE 4.5 MG/DL (0.55-1.30); HDL CHOLESTEROL 32 MG/DL (40-60); POTASSIUM 3.5 MMOL/L (3.5-5.1); SODIUM 143 MMOL/L (136-145); TRIGLYCERIDES 129 MG/DL (30-150)
--- NOTE | 2019-04-15 07:57 | General Progress Note ---
Assessment/Plan Problem List: (1) Septic arthritis ICD Codes: M00.9 - Pyogenic arthritis, unspecified SNOMED: 462697563 (2) ESRD (end stage renal disease) ICD Codes: N18.6 - End stage renal disease SNOMED: 85526698 (3) Hypertensive kidney disease ICD Codes: I12.9 - Hypertensive chronic kidney disease with stage 1 through stage 4 chronic kidney disease, or unspecified chronic kidney disease SNOMED: 12515874 (4) possible septic arthritis Status: stable Assessment/Plan: IV abx HD per renal await ortho eval Subjective ROS Limited/Unobtainable: No Constitutional: Reports: malaise, weakness HEENT: Reports: no symptoms Cardiovascular: Reports: no symptoms Respiratory: Reports: no symptoms Gastrointestinal/Abdominal: Reports: no symptoms Genitourinary: Reports: no symptoms Neurologic/Psychiatric: Reports: no symptoms Endocrine: Reports: no symptoms Hematologic/Lymphatic: Reports: no symptoms Allergies: Coded Allergies: No Known Allergies (Unverified , 11/12/18) All Systems: reviewed and negative except above Subjective no events. w/o complaints. confused at baseline. CT noted. Objective Last 24 Hour Vital Signs Date Time Temp Pulse Resp B/P (MAP) Pulse Ox O2 Delivery O2 Flow Rate FiO2 04/15/19 04:00 97.3 60 19 150/64 (92) 96 04/15/19 00:00 97.2 76 19 105/70 (82) 96 04/14/19 21:00 Room Air 04/14/19 20:25 61 155/68 04/14/19 20:24 61 155/68 04/14/19 20:00 97.3 61 18 155/68 (97) 96 04/14/19 16:00 98.2 67 18 153/69 (97) 94 04/14/19 12:00 98.3 74 17 130/98 (109) 94 04/14/19 09:43 72 172/78 04/14/19 09:43 72 172/78 04/14/19 09:00 Room Air 04/14/19 08:00 97.3 72 18 172/78 (109) 94 Intake and Output 04/14/19 04/15/19 19:00 07:00 Intake Total 600 ml 350 ml Balance 600 ml 350 ml Intake Oral 600 ml 350 ml # Voids 4 2 # Bowel Movements 1 Laboratory Tests 04/15/19 05:03: White Blood Count 15.3H, Red Blood Count 4.02L, Hemoglobin 11.6L, Hematocrit 37.0, Mean Corpuscular Volume 92, Mean Corpuscular Hemoglobin 28.9, Mean Corpuscular Hemoglobin Concent 31.4L, Red Cell Distribution Width 17.3H, Platelet Count 735H, Mean Platelet Volume 3.9L, Neutrophils (%) (Auto) 72.1, Lymphocytes (%) (Auto) 20.9, Monocytes (%) (Auto) 4.0, Eosinophils (%) (Auto) 2.4, Basophils (%) (Auto) 0.6, Sodium Level 143, Potassium Level 3.5, Chloride Level 100, Carbon Dioxide Level 32, Anion Gap 12, Blood Urea Nitrogen 70H, Creatinine 4.5H, Estimat Glomerular Filtration Rate , Glucose Level 128H, Hemoglobin A1c [Pending], Uric Acid 5.8, Calcium Level 9.8, Phosphorus Level 5.7H, Magnesium Level 1.9, Iron Level [Pending], Unsaturated Iron Binding [ Pending], Ferritin [Pending], Total Bilirubin 0.4, Gamma Glutamyl Transpeptidase 87H, Aspartate Amino Transf (AST/SGOT) 16, Alanine Aminotransferase (ALT/SGPT) 12, Alkaline Phosphatase 138H, C-Reactive Protein, Quantitative 24.8H, Pro-B-Type Natriuretic Peptide > 56740D, Total Protein 8.9H , Albumin 2.1L, Globulin 6.8, Albumin/Globulin Ratio 0.3L, Triglycerides Level 129, Cholesterol Level 103, LDL Cholesterol 38, HDL Cholesterol 32L, Cholesterol /HDL Ratio 3.2L, Vitamin B12 Level [Pending], Folate [Pending], Thyroid Stimulating Hormone (TSH) 2.502, Free Thyroxine 1.06, Free Triiodothyronine 0.7L , Random Vancomycin Level [Pending] Height (Feet): 5 Height (Inches): 1.70 Weight (Pounds): 85 General Appearance: WD/WN, confused Neck: supple Cardiovascular: regular rhythm Respiratory/Chest: lungs clear, normal breath sounds, no accessory muscle use Abdomen: normal bowel sounds, non tender, soft, no organomegaly Neurologic: alert, responsive Objective right anterior shoulder swelling Nate Beltran MD Apr 15, 2019 07:57
[2019-04-15 08:00] VITALS: BP 160/73
[2019-04-15 08:16] LABS: FERRITIN > 2000 NG/ML (8-388)
[2019-04-15] MEDS: Carvedilol 6.25mg Tab ORAL SCH ×2 (08:31→21:03)
[2019-04-15] MEDS: Nephrovite tab (Rena-Vite) ORAL SCH (08:40)
[2019-04-15] MEDS: Megace 400mg/10ml Susp ORAL SCH ×2 (08:40→19:13)
[2019-04-15] MEDS: OLANZapine 2.5mg tab ORAL SCH ×3 (08:40→19:12)
[2019-04-15] MEDS: Heparin 5000 units/ml inj SUBQ SCH ×2 (08:41→21:06)
[2019-04-15] MEDS: Triamcinolone 0.1% oint TOPIC SCH ×2 (08:50→18:00)
[2019-04-15 09:21] LABS: IRON 23 ug/dL (50-175); TOTAL IRON BINDING CAPACITY 78 ug/dL (250-450)
[2019-04-15 09:22] LABS: % IRON SATURATION 29 % (15-50)
--- NOTE | 2019-04-15 09:32 | Consultation ---
Consult Note Consult Note 79 yo female with recurrent septic arthritis R shoulder. previously washed out by Dr. Guzman. CT reviewed and there is significant proximal humerus destruction and osteomyelitis Rt shoulder wound actively draining d/w Dr. Beltran that pt's needs are beyond what we can address as she may require extensive proximal humerus resection. Would recommend that Pt be referred back to her prior surgeon to take care of this, or transferred to a tertiary care facility. Stefanie Morris Apr 15, 2019 09:32
[2019-04-15] MEDS ORDERED: Vancomycin 1gm/D5W 275ml IVPB ONE ×2 (11:00)
--- NOTE | 2019-04-15 11:29 | Nephrology Progress Note ---
Assessment/Plan Problem List: (1) ESRD (end stage renal disease) (2) Septic arthritis (3) Malnutrition (4) Diabetes mellitus Assessment (1) ESRD (end stage renal disease) (2) Diabetes mellitus (3) Failure to thrive (0-17) severe malnutrition (4) Anemia in CKD (chronic kidney disease) (5) Hypertensive kidney disease (6) h/o Staphylococcus aureus bacteremia - septic shoulder . h/o right hip abcess Plan check labs keep bp and BS in check HD as needed Inflammatory markers per orders Subjective ROS Limited/Unobtainable: No Constitutional: Reports: malaise Objective Objective Last 24 Hour Vital Signs Date Time Temp Pulse Resp B/P (MAP) Pulse Ox O2 Delivery O2 Flow Rate FiO2 04/15/19 09:00 Room Air 04/15/19 08:32 68 160/73 04/15/19 08:31 68 160/73 04/15/19 08:00 98.2 68 17 160/73 (102) 96 04/15/19 04:00 97.3 60 19 150/64 (92) 96 04/15/19 00:00 97.2 76 19 105/70 (82) 96 04/14/19 21:00 Room Air 04/14/19 20:25 61 155/68 04/14/19 20:24 61 155/68 04/14/19 20:00 97.3 61 18 155/68 (97) 96 04/14/19 16:00 98.2 67 18 153/69 (97) 94 04/14/19 12:00 98.3 74 17 130/98 (109) 94 Intake and Output 04/14/19 04/15/19 19:00 07:00 Intake Total 600 ml 350 ml Balance 600 ml 350 ml Intake Oral 600 ml 350 ml # Voids 4 2 # Bowel Movements 1 Laboratory Tests 04/15/19 05:03: White Blood Count 15.3H, Red Blood Count 4.02L, Hemoglobin 11.6L, Hematocrit 37.0, Mean Corpuscular Volume 92, Mean Corpuscular Hemoglobin 28.9, Mean Corpuscular Hemoglobin Concent 31.4L, Red Cell Distribution Width 17.3H, Platelet Count 735H, Mean Platelet Volume 3.9L, Neutrophils (%) (Auto) 72.1, Lymphocytes (%) (Auto) 20.9, Monocytes (%) (Auto) 4.0, Eosinophils (%) (Auto) 2.4, Basophils (%) (Auto) 0.6, Sodium Level 143, Potassium Level 3.5, Chloride Level 100, Carbon Dioxide Level 32, Anion Gap 12, Blood Urea Nitrogen 70H, Creatinine 4.5H, Estimat Glomerular Filtration Rate , Glucose Level 128H, Hemoglobin A1c 6.1H, Uric Acid 5.8, Calcium Level 9.8, Phosphorus Level 5.7H, Magnesium Level 1.9, Iron Level 23L, Total Iron Binding Capacity 78L, Percent Iron Saturation 29, Unsaturated Iron Binding 55L, Ferritin > 2000H, Total Bilirubin 0.4, Gamma Glutamyl Transpeptidase 87H, Aspartate Amino Transf (AST/ SGOT) 16, Alanine Aminotransferase (ALT/SGPT) 12, Alkaline Phosphatase 138H, C- Reactive Protein, Quantitative 24.8H, Pro-B-Type Natriuretic Peptide > 17107D, Total Protein 8.9H, Albumin 2.1L, Globulin 6.8, Albumin/Globulin Ratio 0.3L, Triglycerides Level 129, Cholesterol Level 103, LDL Cholesterol 38, HDL Cholesterol 32L, Cholesterol/HDL Ratio 3.2L, Vitamin B12 Level 548, Folate 18.9 , Thyroid Stimulating Hormone (TSH) 2.502, Free Thyroxine 1.06, Free Triiodothyronine 0.7L, Random Vancomycin Level 10.9 Height (Feet): 5 Height (Inches): 1.70 Weight (Pounds): 88 General Appearance: no apparent distress Cardiovascular: normal rate Respiratory/Chest: decreased breath sounds Abdomen: soft William Blackwood MD Apr 15, 2019 11:29
--- NOTE | 2019-04-15 11:44 | NUR ---
NURSE NOTES: Called Dr Beltran to notify of gram + rods in clusters x4 bottles, recvd call from [facility]. waiting for new orders, will continue with plan of care
[2019-04-15 12:00] VITALS: BP 160/75
[2019-04-15] MEDS: Liothyronine 5mcg tab ORAL SCH (12:36)
--- NOTE | 2019-04-15 13:22 | NUR ---
NURSE NOTES: pt noted with cough and congestion and pt attempting to expectorate but cannot, suctioned pt, noted with pink whitish sputum moderate amount via nasotracheal suction, relayed to dr Beltran , received order for cxr and acetylcysteine breathing tx , ordered. pt satting 95% on RA
--- NOTE | 2019-04-15 14:30 | NUR ---
CASE MANAGEMENT:REVIEW 04/15/19 SI: SEPTIC ARTHRITIS/OSTEOMYELITIS BLOOD CX PRELIM(+). ESRD ON HD 98.1 70 21 160/75 96% ON RA WBC+15.3 IS: IV VANCOMYCIN X1 MUCOMYST HHN TID DUONEB HHN Q6HRS RTC CYTOMEL PO QD COREG PO Q12 NORVASC PO BID : MED/SURG STATUS 4 E[facility]: [facility]
--- NOTE | 2019-04-15 15:40 | Surgery Progress Note ---
Surgery Progress Note Subjective Additional Comments leukocytosis trending down exam stable labs noted Objective Last 24 Hour Vital Signs Date Time Temp Pulse Resp B/P (MAP) Pulse Ox O2 Delivery O2 Flow Rate FiO2 04/15/19 12:00 98.1 70 21 160/75 (103) 96 04/15/19 09:00 Room Air 04/15/19 08:32 68 160/73 04/15/19 08:31 68 160/73 04/15/19 08:00 98.2 68 17 160/73 (102) 96 04/15/19 04:00 97.3 60 19 150/64 (92) 96 04/15/19 00:00 97.2 76 19 105/70 (82) 96 04/14/19 21:00 Room Air 04/14/19 20:25 61 155/68 04/14/19 20:24 61 155/68 04/14/19 20:00 97.3 61 18 155/68 (97) 96 04/14/19 16:00 98.2 67 18 153/69 (97) 94 I&O Intake and Output 04/14/19 04/15/19 18:59 06:59 Intake Total 600 ml 350 ml Balance 600 ml 350 ml Intake Oral 600 ml 350 ml # Voids 4 2 # Bowel Movements 1 Dressing: saturated Wound: other Drains: other Cardiovascular: RSR Respiratory: decreased breath sounds Abdomen: soft, present bowel sounds, non-distended Extremities: other Laboratory Tests Test 04/15/19 05:03 White Blood Count 15.3 K/UL (4.8-10.8) H Red Blood Count 4.02 M/UL (4.20-5.40) L Hemoglobin 11.6 G/DL (12.0-16.0) L Hematocrit 37.0 % (37.0-47.0) Mean Corpuscular Volume 92 FL (80-99) Mean Corpuscular Hemoglobin 28.9 PG (27.0-31.0) Mean Corpuscular Hemoglobin Concent 31.4 G/DL (32.0-36.0) L Red Cell Distribution Width 17.3 % (11.6-14.8) H Platelet Count 735 K/UL (150-450) H Mean Platelet Volume 3.9 FL (6.5-10.1) L Neutrophils (%) (Auto) 72.1 % (45.0-75.0) Lymphocytes (%) (Auto) 20.9 % (20.0-45.0) Monocytes (%) (Auto) 4.0 % (1.0-10.0) Eosinophils (%) (Auto) 2.4 % (0.0-3.0) Basophils (%) (Auto) 0.6 % (0.0-2.0) Sodium Level 143 MMOL/L (136-145) Potassium Level 3.5 MMOL/L (3.5-5.1) Chloride Level 100 MMOL/L (98-107) Carbon Dioxide Level 32 MMOL/L (21-32) Anion Gap 12 mmol/L (5-15) Blood Urea Nitrogen 70 mg/dL (7-18) H Creatinine 4.5 MG/DL (0.55-1.30) H Estimat Glomerular Filtration Rate mL/min (>60) Glucose Level 128 MG/DL (74-106) H Hemoglobin A1c 6.1 % (4.3-6.0) H Uric Acid 5.8 MG/DL (2.6-7.2) Calcium Level 9.8 MG/DL (8.5-10.1) Phosphorus Level 5.7 MG/DL (2.5-4.9) H Magnesium Level 1.9 MG/DL (1.8-2.4) Iron Level 23 ug/dL (50-175) L Total Iron Binding Capacity 78 ug/dL (250-450) L Percent Iron Saturation 29 % (15-50) Unsaturated Iron Binding 55 ug/dL (112-346) L Ferritin > 2000 NG/ML (8-388) H Total Bilirubin 0.4 MG/DL (0.2-1.0) Gamma Glutamyl Transpeptidase 87 U/L (5-85) H Aspartate Amino Transf (AST/SGOT) 16 U/L (15-37) Alanine Aminotransferase (ALT/SGPT) 12 U/L (12-78) Alkaline Phosphatase 138 U/L (46-116) H C-Reactive Protein, Quantitative 24.8 mg/dL (0.00-0.90) H Pro-B-Type Natriuretic Peptide > 10813 pg/mL (0-125) H Total Protein 8.9 G/DL (6.4-8.2) H Albumin 2.1 G/DL (3.4-5.0) L Globulin 6.8 g/dL Albumin/Globulin Ratio 0.3 (1.0-2.7) L Triglycerides Level 129 MG/DL (30-150) Cholesterol Level 103 MG/DL (< 200) LDL Cholesterol 38 mg/dL (<100) HDL Cholesterol 32 MG/DL (40-60) L Cholesterol/HDL Ratio 3.2 (3.3-4.4) L Vitamin B12 Level 548 PG/ML (193-986) Folate 18.9 NG/ML (8.6-58.9) Thyroid Stimulating Hormone (TSH) 2.502 uiU/mL (0.358-3.740) Free Thyroxine 1.06 NG/DL (0.76-1.46) Free Triiodothyronine 0.7 pg/mL (2.3-4.2) L Random Vancomycin Level 10.9 ug/mL Plan Problems: (1) Septic arthritis (2) Malnutrition Assessment & Plan: DAILY ESTIMATED NEEDS: Needs based on ESRD+ HD, underweight/ 38kg 35-40 kcals/kg 9784-5323 total kcals 1.2-1.8 g protein/kg 46-68 g total protein 20-22 mL/kg 760-836 total fluid mLs NUTRITION DIAGNOSIS: * Increased kcal and protein needs r/t underweight status, HD needs as evidenced by pt is underweight per guidelines, ESRD, on HD. * Swallowing and chewing difficulty R/T dysphagia, edentulous status as evidenced by pt on pureed moist texture, NTL diet. CURRENT DIET:Renal, pureed moist w/ NTL PO DIET RECOMMENDATIONS: RENAL, CCHO MED DIET (texture per ABORIGINAL COMMUNITY COUNCIL MEMBER or as tolerated) ADDITIONAL RECOMMENDATIONS: 1) Calibrated bed scale wt for accurate CBW -> daily wt monitoring bedscale wt = 38kg (83.6lbs) vs EMR wt of 75lbs 2) Rec WC eval: R trochanter w/ h/o full thickness wound with tunneling 3) Continue Nephrovite x 1 4) 4oz Nepro TID w/ meals 5) Rec NISS : A1C 7.3 on 02/12/19, BG 201 6) Monitor lytes and renal fxn (3) Wound, open, hip or thigh with complication Assessment & Plan: Pt presented on admission large abscess R shoulder exuding large amt of purulent exudate. Erythema and elevated skin temp noted at affected site. Pt exhibited severe pain by crying out each time R upper ext minimally moved. Pt also noted to have generalized maculopapular rash. Skin is very dry and pt noted to persistently scratch at skin. Phytoplex Skin Nourishing lotion applied. Scattered erythema without induration noted to R and L buttocks. Both heels boggy but blanchable. Small tunneled wound R hip. Unable to assess depth of wound secondary to size of wound . Small amt serous exudate noted. Periwound skin is pink and blanchable. Tx.Plan: Apply Triamcinolone 1% cream to body rash BID. Cleanse R hip with Saline. Apply Optifoam drsg. Change Daily and prn. Apply Moisture Barrier Paste to Buttocks. Cover with Optifoam drsg. Change every 3 days and prn. Apply Cavilon Skin Barrier to Both heels. Cover each heel with Optifoam drsg. Change every 7 days and prn. Reposition at least every 2hours or as tolerated. Off-load heels with pillow. (4) Failure to thrive (0-17) Camilo James Apr 15, 2019 15:40
[2019-04-15 16:00] VITALS: BP 117/80
[2019-04-15] MEDS: Albuterol/Ipratropium 3ml neb HHN SCH (19:06)
--- NOTE | 2019-04-15 19:15 | Consultation ---
DATE OF CONSULTATION: 04/15/2019 ORTHOPEDIC CONSULTATION REASON FOR CONSULTATION: Consult was called by Dr. Nate Beltran for concern of right septic shoulder. HISTORY OF PRESENT ILLNESS: The patient is an unfortunate 79-year-old female with end-stage renal disease, on dialysis as well as schizophrenia and dementia. She was recently hospitalized at [facility] for right septic shoulder, which was washed out by Dr. Guzman. She returned back to her facility and there was concern of drainage from her healed surgical site and she was sent back to [place] for evaluation. On current admission, CT scan was obtained noting septic arthritis of right shoulder with significant osteomyelitic breakdown of proximal humerus. Orthopedics consult has been called. PAST MEDICAL HISTORY: As above. PAST SURGICAL HISTORY: Recent washout of right shoulder abscess. CURRENT MEDICATIONS: Please see chart. ALLERGIES: None noted. SOCIAL HISTORY: Gathered from chart that she is a correction resident. REVIEW OF SYSTEMS: Unobtainable. PHYSICAL EXAMINATION: GENERAL: The patient is contracted, lying in the decubitus position on the right side. She is awake but nonresponsive or answering questions during exam. EXTREMITIES: Her right shoulder has a dressing on it that is somewhat saturated. When dressing was removed, there was an area that appears to be part of her previous incision that has dehisced and there is active drainage that is thick and purulent. It is difficult to assess neurovascular status as she does not follow commands. IMAGING: CT scan is reviewed. There is evidence of septic arthritis with significant osteomyelitis breakdown and deterioration of the proximal humerus and erosion of the glenoid. There appears to be continued abscess in the subdeltoid region that is draining . IMPRESSION: Right shoulder recurrent septic arthritis and osteomyelitis with destruction of the glenohumeral joint. DISCUSSION: At this time, I discussed with Dr. Beltran that this is very guarded situation and the patient will require much higher level of care. She may need proximal humerus resection. I would recommend that she either be seen by her prior surgeon to see if this is something that can be done at [facility]. However if not she will require transfer care to a tertiary center to get this addressed as this situation outside of our area of expertise and she certainly requires a higher level of care. Dr. Beltran is in agreement with our assessment and will make the necessary referrals and transfer for the patient. Thank you for allowing me to participate in the care of this patient. If there are any questions or concerns, please do not hesitate to contact. Jitendra Evans M.D. Woodrow Mike DR: [place] JOB#: [id number] CC:
[2019-04-15 20:00] VITALS: BP 155/77
--- NOTE | 2019-04-15 20:13 | NUR ---
NURSE NOTES: Patient in bed, awake, alert x 2. Periods of confusion. Skin is warm and dry. Noted with past surgical sight on the left hip and right shoulder. NOted with dressing on right shoulder with drainage, dressing changed. IV site noted. Kept clean and comfortable. Respiration is even and unlabored. No s/s of pain or discomfort noted. Frequent visual checks. Will continue plan of care.
--- NOTE | 2019-04-15 22:52 | NUR ---
NURSE NOTES: Right shoulder dressing changed, noted with drainage yellow puss. Cleaned. 4x4 and tape.
--- NOTE | 2019-04-15 23:00 | NUR ---
NURSE NOTES: Right hip dressing intact, patient cleaned.
[2019-04-16] VITALS: BP 159/72
[2019-04-16] MEDS: Albuterol/Ipratropium 3ml neb HHN SCH ×4 (00:56→20:06)
--- NOTE | 2019-04-16 01:00 | Progress Note ---
DATE: 04/15/2019 CARDIOLOGY PROGRESS NOTE SUBJECTIVE: The patient is at baseline mentation, confused, and poorly responsive. Episodes of agitation noted. OBJECTIVE: VITAL SIGNS: Notable for labile blood pressure 105/70 to 150/64, heart rate 60 to 76, respiratory rate 19, and the patient is afebrile. HEENT: Dry mucous membranes. Jugular venous pressure normal. LUNGS: Clear. CARDIAC: Regular rhythm and rate. Normal S1 and S2. A 1/6 systolic murmur at the base. ABDOMEN: Soft and nontender. EXTREMITIES: No edema. LABORATORY DATA: White count 15.3 and hemoglobin 11.6. Sodium 143, potassium 3.5, bicarb 32, BUN 70, creatinine 4.5, and magnesium 1.9. Liver function with normal levels. Pro-natriuretic peptide over 35,000. IMPRESSION: 1. Possible recurring septic arthritis. 2. End-stage renal disease, on hemodialysis. 3. Hypertensive heart disease with labile blood pressure, possibly due to pain or psychiatric component. 4. Severe protein-calorie malnutrition. 5. Acute on chronic diastolic congestive heart failure. PLAN: 1. Antimicrobials. 2. Await Orthopedic evaluation. 3. Continue hemodialysis with ultrafiltration. 4. I would not advance antihypertensives at this time due to risk of hypotensive episodes, as such we will continue p.r.n. dosing of blood pressure therapy for blood pressure spikes. Abel Stubbs M.D. DR: ARETHA JOB#: [id number] CC:
--- NOTE | 2019-04-16 01:45 | Consultation ---
DATE OF CONSULTATION: 04/14/2019 CARDIOLOGY CONSULTATION CONSULTING PHYSICIAN: Abel Stubbs M.D. REASON FOR CONSULTATION: Management of labile blood pressure. HISTORY OF PRESENT ILLNESS: This is a 79-year-old [place]ian female. She has a history of end-stage renal disease, on hemodialysis. She has a known history of labile blood pressure with malignant range hypertension. She is admitted to the hospital at this time with recurring infection of her right shoulder. She recently was treated for septic arthritis of the joint. I have been asked to assist with cardiovascular care. The patient is a poor historian due to baseline dementia. Extensive review of medical record and hospital chart from prior stays and current assisted records was undertaken. PAST MEDICAL HISTORY: End-stage renal disease, insulin requiring diabetes mellitus, hypertension with hypertensive heart disease, chronic diastolic congestive heart failure, cerebrovascular disease with dementia, osteoarthritis, osteoporosis, degenerative disk disease, and anemia of chronic kidney disease. History of MRSA colonization of the respiratory tract. ALLERGIES: None. FAMILY HISTORY: Not known. SOCIAL HISTORY: No record of smoking, alcohol, or substance abuse. FAMILY HISTORY: Noncontributory. REVIEW OF SYSTEMS: Not obtainable as noted above. PHYSICAL EXAMINATION: VITAL SIGNS: Afebrile, blood pressure 143/81, pulse 74, and respirations 18. GENERAL: Thin, frail, temporal wasting. HEENT: Pale conjunctivae. Oropharynx clear. Mucous membranes dry. NECK: Supple. Jugular venous pressure normal. Carotid upstrokes without delay. LUNGS: Clear. CARDIAC: Regular rhythm rate. Normal S1, S2 with a fourth heart sound and a 1/6 systolic murmur at the base. ABDOMEN: Soft, nontender. No guarding or rebound. EXTREMITIES: Without edema. The right shoulder area has erythema and warmth. Decreased range of motion. LABORATORY DATA: Sodium 141, potassium 3.9, BUN 51, and creatinine 3.8. White count 18, hemoglobin 11. EKG, pending. IMPRESSION: 1. Possible recurring septic arthritis of the right shoulder. 2. Hypertensive heart disease with history of malignant range and labile blood pressure. 3. End-stage renal disease, on hemodialysis. 4. Anemia of chronic kidney disease. 5. Insulin requiring diabetes mellitus. 6. Cerebrovascular disease with dementia and agitation. 7. Thrombocytosis. PLAN: 1. Await CT of the shoulder. 2. Obtain cultures. 3. Continue hemodialysis with ultrafiltration for volume management. 4. Maintain baseline cardiovascular regimen. 5. Add p.r.n. medications for blood pressure spikes. 6. Monitor blood count. 7. Further evaluation of elevated platelet count will follow, anti-platelet therapy for now. Abel Stubbs M.D. DR: [place] JOB#: [id number] CC:
[2019-04-16 04:00] VITALS: BP 158/83
--- NOTE | 2019-04-16 07:18 | NUR ---
HAND-OFF: Report given to Pamela Coppola.
--- NOTE | 2019-04-16 07:20 | NUR ---
NURSE NOTES: Received report from SANYA Zurita. Pt is A/Ox1 and nonverbal. Permacath on Right chest, IV site intact. On RA, no apparent distress noted. HOB elevated. Bed locked in lowest position with alarm on, side rails up, call light within reach. Will continue to monitor.
[2019-04-16 08:00] VITALS: BP 157/76
--- NOTE | 2019-04-16 09:01 | Diagnostic Imaging Report ---
EXAM: XR Chest, 1 View CLINICAL HISTORY: COUGH TECHNIQUE: Frontal view of the chest. COMPARISON: No relevant prior studies available. FINDINGS: Lungs: Interval development of extensive right basilar volume loss with associated elevation of the right hemidiaphragm. Cannot exclude underlying infiltrate. Pleural space: Unremarkable. No pneumothorax. Heart: Unremarkable. No cardiomegaly. Mediastinum: Dialysis catheter in a right internal jugular approach, tips in the right atrium. Bones joints: Osteopenia. IMPRESSION: Increasing right basilar atelectasis with elevated hemidiaphragm. Cannot exclude underlying infectious infiltrate. Right IJ dialysis catheter.
[2019-04-16] MEDS: Liothyronine 5mcg tab ORAL SCH (09:21)
[2019-04-16] MEDS: Triamcinolone 0.1% oint TOPIC SCH ×2 (09:21→17:08)
[2019-04-16] MEDS: Megace 400mg/10ml Susp ORAL SCH ×2 (09:21→17:08)
[2019-04-16] MEDS: Carvedilol 6.25mg Tab ORAL SCH ×2 (09:24→21:11)
[2019-04-16] MEDS: OLANZapine 2.5mg tab ORAL SCH ×3 (09:24→17:08)
[2019-04-16] MEDS: Nephrovite tab (Rena-Vite) ORAL SCH (09:24)
[2019-04-16] MEDS: Heparin 5000 units/ml inj SUBQ SCH ×2 (09:25→21:12)
--- NOTE | 2019-04-16 09:57 | Nephrology Progress Note ---
Assessment/Plan Problem List: (1) ESRD (end stage renal disease) (2) Septic arthritis (3) Malnutrition (4) Diabetes mellitus Assessment (1) ESRD (end stage renal disease) (2) Diabetes mellitus (3) Failure to thrive (0-17) severe malnutrition (4) Anemia in CKD (chronic kidney disease) (5) Hypertensive kidney disease (6) h/o Staphylococcus aureus bacteremia - septic shoulder . h/o right hip abcess Plan no labs today keep bp and BS in check HD as needed done 04/15 Inflammatory markers per orders Subjective ROS Limited/Unobtainable: No Constitutional: Reports: malaise Objective Objective Last 24 Hour Vital Signs Date Time Temp Pulse Resp B/P (MAP) Pulse Ox O2 Delivery O2 Flow Rate FiO2 04/16/19 09:24 68 157/76 04/16/19 09:24 68 157/76 04/16/19 08:46 68 20 100 Room Air 21 69 20 100 04/16/19 08:00 97.1 69 16 157/76 (103) 97 04/16/19 04:00 98.2 73 20 158/83 (108) 94 04/16/19 00:56 72 20 99 Room Air 21 68 20 98 04/16/19 00:00 98.5 64 20 159/72 (101) 93 04/15/19 21:03 65 155/77 04/15/19 21:03 65 155/77 04/15/19 21:00 Room Air 04/15/19 20:00 98.4 65 20 155/77 (103) 94 04/15/19 19:15 66 18 98 Room Air 21 04/15/19 19:15 68 18 99 Room Air 21 66 18 98 04/15/19 16:00 97.0 93 18 117/80 (92) 95 04/15/19 12:00 98.1 70 21 160/75 (103) 96 Intake and Output 04/15/19 04/16/19 19:00 07:00 Intake Total 360 ml Output Total 1000 ml Balance -640 ml Intake Oral 360 ml Output Hemodialysis UF 1000 ml # Voids 1 5 Height (Feet): 5 Height (Inches): 1.70 Weight (Pounds): 89 General Appearance: no apparent distress Cardiovascular: normal rate Respiratory/Chest: decreased breath sounds Abdomen: distended Objective no change William Blackwood MD Apr 16, 2019 09:57
--- NOTE | 2019-04-16 10:11 | General Progress Note ---
Assessment/Plan Problem List: (1) Septic arthritis ICD Codes: M00.9 - Pyogenic arthritis, unspecified SNOMED: 511761004 (2) ESRD (end stage renal disease) ICD Codes: N18.6 - End stage renal disease SNOMED: 48075683 (3) Hypertensive kidney disease ICD Codes: I12.9 - Hypertensive chronic kidney disease with stage 1 through stage 4 chronic kidney disease, or unspecified chronic kidney disease SNOMED: 01990981 (4) possible septic arthritis Status: stable Assessment/Plan: IV abx HD per renal ortho noted try to transfer to [facility] Subjective ROS Limited/Unobtainable: Yes Constitutional: Reports: malaise, weakness HEENT: Reports: no symptoms Cardiovascular: Reports: no symptoms Respiratory: Reports: no symptoms Gastrointestinal/Abdominal: Reports: no symptoms Genitourinary: Reports: no symptoms Neurologic/Psychiatric: Reports: no symptoms Endocrine: Reports: no symptoms Hematologic/Lymphatic: Reports: no symptoms Allergies: Coded Allergies: No Known Allergies (Unverified , 11/12/18) All Systems: reviewed and negative except above Subjective no events. w/o complaints. confused at baseline. CT noted. trying to get pt transferred to [facility] per ortho recs Objective Last 24 Hour Vital Signs Date Time Temp Pulse Resp B/P (MAP) Pulse Ox O2 Delivery O2 Flow Rate FiO2 04/16/19 09:24 68 157/76 04/16/19 09:24 68 157/76 04/16/19 08:46 68 20 100 Room Air 21 69 20 100 04/16/19 08:00 97.1 69 16 157/76 (103) 97 04/16/19 04:00 98.2 73 20 158/83 (108) 94 04/16/19 00:56 72 20 99 Room Air 21 68 20 98 04/16/19 00:00 98.5 64 20 159/72 (101) 93 04/15/19 21:03 65 155/77 04/15/19 21:03 65 155/77 04/15/19 21:00 Room Air 04/15/19 20:00 98.4 65 20 155/77 (103) 94 04/15/19 19:15 66 18 98 Room Air 21 04/15/19 19:15 68 18 99 Room Air 21 66 18 98 04/15/19 16:00 97.0 93 18 117/80 (92) 95 04/15/19 12:00 98.1 70 21 160/75 (103) 96 Intake and Output 04/15/19 04/16/19 19:00 07:00 Intake Total 360 ml Output Total 1000 ml Balance -640 ml Intake Oral 360 ml Output Hemodialysis UF 1000 ml # Voids 1 5 Height (Feet): 5 Height (Inches): 1.70 Weight (Pounds): 89 General Appearance: WD/WN, confused Neck: supple Cardiovascular: normal rate, regular rhythm Respiratory/Chest: chest wall non-tender, lungs clear, normal breath sounds, no respiratory distress Abdomen: normal bowel sounds, non tender, soft, no organomegaly Edema: no edema noted Arm (L), no edema noted Arm (R), no edema noted Leg (L), no edema noted Leg (R), no edema noted Pedal (L), no edema noted Pedal (R), no edema noted Generalized Objective right anterior shoulder swelling Nate Beltran MD Apr 16, 2019 10:11
--- NOTE | 2019-04-16 11:29 | Surgery Progress Note ---
Surgery Progress Note Subjective Additional Comments ortho input noted exam stable still draining labs noted Objective Last 24 Hour Vital Signs Date Time Temp Pulse Resp B/P (MAP) Pulse Ox O2 Delivery O2 Flow Rate FiO2 04/16/19 09:24 68 157/76 04/16/19 09:24 68 157/76 04/16/19 09:00 Room Air 04/16/19 08:46 68 20 100 Room Air 21 69 20 100 04/16/19 08:00 97.1 69 16 157/76 (103) 97 04/16/19 04:00 98.2 73 20 158/83 (108) 94 04/16/19 00:56 72 20 99 Room Air 21 68 20 98 04/16/19 00:00 98.5 64 20 159/72 (101) 93 04/15/19 21:03 65 155/77 04/15/19 21:03 65 155/77 04/15/19 21:00 Room Air 04/15/19 20:00 98.4 65 20 155/77 (103) 94 04/15/19 19:15 66 18 98 Room Air 21 04/15/19 19:15 68 18 99 Room Air 21 66 18 98 04/15/19 16:00 97.0 93 18 117/80 (92) 95 04/15/19 12:00 98.1 70 21 160/75 (103) 96 I&O Intake and Output 04/15/19 04/16/19 19:00 07:00 Intake Total 360 ml Output Total 1000 ml Balance -640 ml Intake Oral 360 ml Output Hemodialysis UF 1000 ml # Voids 1 5 Dressing: saturated Wound: other Drains: other Cardiovascular: RSR Respiratory: decreased breath sounds Abdomen: soft, present bowel sounds, non-distended Extremities: no tenderness, no cyanosis, other Plan Problems: (1) Septic arthritis Assessment & Plan: plan for tertiary center eval vs original ortho surgeon eval as will need extensive debridement (2) Malnutrition Assessment & Plan: DAILY ESTIMATED NEEDS: Needs based on ESRD+ HD, underweight/ 38kg 35-40 kcals/kg 0372-4329 total kcals 1.2-1.8 g protein/kg 46-68 g total protein 20-22 mL/kg 760-836 total fluid mLs NUTRITION DIAGNOSIS: * Increased kcal and protein needs r/t underweight status, HD needs as evidenced by pt is underweight per guidelines, ESRD, on HD. * Swallowing and chewing difficulty R/T dysphagia, edentulous status as evidenced by pt on pureed moist texture, NTL diet. CURRENT DIET:Renal, pureed moist w/ NTL PO DIET RECOMMENDATIONS: RENAL, CCHO MED DIET (texture per JEWELRY CONSULTANT or as tolerated) ADDITIONAL RECOMMENDATIONS: 1) Calibrated bed scale wt for accurate CBW -> daily wt monitoring bedscale wt = 38kg (83.6lbs) vs EMR wt of 75lbs 2) Rec WC eval: R trochanter w/ h/o full thickness wound with tunneling 3) Continue Nephrovite x 1 4) 4oz Nepro TID w/ meals 5) Rec NISS : A1C 7.3 on 02/12/19, BG 201 6) Monitor lytes and renal fxn (3) Wound, open, hip or thigh with complication Assessment & Plan: Pt presented on admission large abscess R shoulder exuding large amt of purulent exudate. Erythema and elevated skin temp noted at affected site. Pt exhibited severe pain by crying out each time R upper ext minimally moved. Pt also noted to have generalized maculopapular rash. Skin is very dry and pt noted to persistently scratch at skin. Phytoplex Skin Nourishing lotion applied. Scattered erythema without induration noted to R and L buttocks. Both heels boggy but blanchable. Small tunneled wound R hip. Unable to assess depth of wound secondary to size of wound . Small amt serous exudate noted. Periwound skin is pink and blanchable. Tx.Plan: Apply Triamcinolone 1% cream to body rash BID. Cleanse R hip with Saline. Apply Optifoam drsg. Change Daily and prn. Apply Moisture Barrier Paste to Buttocks. Cover with Optifoam drsg. Change every 3 days and prn. Apply Cavilon Skin Barrier to Both heels. Cover each heel with Optifoam drsg. Change every 7 days and prn. Reposition at least every 2hours or as tolerated. Off-load heels with pillow. (4) Failure to thrive (0-17) Camilo James Apr 16, 2019 11:29
[2019-04-16 12:00] VITALS: BP 149/81
--- NOTE | 2019-04-16 13:15 | NUR ---
NURSE NOTES: Dressing on the Right shoulder changed. Pt tolerated well.
--- NOTE | 2019-04-16 15:12 | NUR ---
NURSE NOTES: RN made Dr. Beltran aware of pt's agitation/pain. MD ordered Liberty 10/325 mg PO q4h PRN. Will follow.
--- NOTE | 2019-04-16 15:40 | NUR ---
NURSE NOTES: Dr. Beltran said it's ok to change from the Ativan 1 mg PO for PRN before hemodialysis for agitation to Ativan 1 mg PO PRN Q6H for anxiety.
[2019-04-16 16:00] VITALS: BP 141/77
--- NOTE | 2019-04-16 17:17 | NUR ---
NURSE NOTES: Changed dressing on Right hip. Pt tolerated well.
--- NOTE | 2019-04-16 19:50 | NUR ---
HAND-OFF: Report given to SANYA Oates.
[2019-04-16 20:00] VITALS: BP 156/107
--- NOTE | 2019-04-16 20:00 | NUR ---
NURSE NOTES: Pt is A/Ox1 and nonverbal. Permacath on Right chest, no IV site as pt removed prior to shift change. will reinsert. no apparent distress noted. HOB elevated. Bed locked in lowest position with alarm on, side rails up, call light within reach. Will continue to monitor.
[2019-04-17] VITALS (7 sets, daily range): BP systolic 151–174; BP diastolic 64–80
[2019-04-17] MEDS: Albuterol/Ipratropium 3ml neb HHN SCH ×5 (01:11→19:59)
[2019-04-17] MEDS: LORazepam 1mg tab ORAL PRN ×3 (01:30→21:51)
[2019-04-17] MEDS: HydrALAZINE 25mg tab ORAL PRN ×2 (01:30→16:19)
--- NOTE | 2019-04-17 01:45 | Progress Note ---
DATE: 04/16/2019 CARDIOLOGY PROGRESS NOTE SUBJECTIVE: The patient was seen in Orthopedic consultation. Recommendations for transfer to higher level of care were made because of possible proximal humeral resection requirement. The patient remains with no complaints due to baseline confusion. OBJECTIVE: VITAL SIGNS: Blood pressure 150/64, pulse 60, respirations 19, and afebrile. LUNGS: Clear. CARDIAC: Regular. Normal S1, S2 with a fourth heart sound. No rub. A 1/6 systolic murmur at base. ABDOMEN: Soft. EXTREMITIES: No edema. LABORATORY DATA: Blood cultures positive for Staph aureus. IMPRESSION: 1. Staph aureus bacteremia. 2. Septic arthritis of the right shoulder. 3. Increased risk for endocarditis. 4. End-stage renal disease. 5. Hypertensive heart disease. PLAN: 1. Await transfer to higher level of care. 2. Echocardiogram to evaluate the valve. 3. Titrate antihypertensives based on clinical parameters. Abel Stubbs M.D. DR: ALICIA JOB#: [id number] CC:
--- NOTE | 2019-04-17 07:19 | NUR ---
HAND-OFF: Report given to SANYA Hollis.
--- NOTE | 2019-04-17 07:20 | NUR ---
NURSE NOTES: Received report from SANYA Oates. Pt is sleeping in bed. On RA, no apparent distress noted. IV site is intact. Bed locked in lowest position with bed alarm on. Side rails up. Call light within reach. Will continue to monitor.
[2019-04-17 08:10] LABS: BASOPHILS % (AUTO) 1.1 % (0.0-2.0); HEMATOCRIT 30.6 % (37.0-47.0); HEMOGLOBIN 9.7 G/DL (12.0-16.0); LYMPHOCYTES % (AUTO) 30.6 % (20.0-45.0); MEAN CORPUSCULAR VOLUME 90 FL (80-99); MONOCYTES % (AUTO) 4.8 % (1.0-10.0); NEUTROPHILS % (AUTO) 59.5 % (45.0-75.0); PLATELET COUNT 687 K/UL (150-450); RED BLOOD COUNT 3.39 M/UL (4.20-5.40); RED CELL DISTRIBUTION WIDTH 16.8 % (11.6-14.8); WHITE BLOOD COUNT 9.6 K/UL (4.8-10.8)
[2019-04-17 08:57] LABS: ALANINE AMINOTRANSFERASE 11 U/L (12-78); ALBUMIN 1.8 G/DL (3.4-5.0); ALBUMIN/GLOBULIN RATIO 0.3 (1.0-2.7); ALKALINE PHOSPHATASE 103 U/L (46-116); ANION GAP 8 mmol/L (5-15); ASPARTATE AMINO TRANSFERASE 15 U/L (15-37); BILIRUBIN,TOTAL 0.4 MG/DL (0.2-1.0); BLOOD UREA NITROGEN 58 mg/dL (7-18); CALCIUM 9.2 MG/DL (8.5-10.1); CARBON DIOXIDE 28 MMOL/L (21-32); CHLORIDE 105 MMOL/L (98-107); CREATININE 4.8 MG/DL (0.55-1.30); SODIUM 141 MMOL/L (136-145)
--- NOTE | 2019-04-17 09:11 | General Progress Note ---
Assessment/Plan Problem List: (1) Septic arthritis ICD Codes: M00.9 - Pyogenic arthritis, unspecified SNOMED: 846507108 (2) ESRD (end stage renal disease) ICD Codes: N18.6 - End stage renal disease SNOMED: 20771567 (3) Hypertensive kidney disease ICD Codes: I12.9 - Hypertensive chronic kidney disease with stage 1 through stage 4 chronic kidney disease, or unspecified chronic kidney disease SNOMED: 55557413 (4) possible septic arthritis Status: stable Assessment/Plan: IV abx id eval HD per renal ortho noted try to transfer to [facility] on the transfer list Subjective ROS Limited/Unobtainable: Yes Constitutional: Reports: malaise, weakness HEENT: Reports: no symptoms Cardiovascular: Reports: no symptoms Respiratory: Reports: no symptoms Gastrointestinal/Abdominal: Reports: no symptoms Genitourinary: Reports: no symptoms Neurologic/Psychiatric: Reports: anxiety, pre-existing deficit Endocrine: Reports: no symptoms Hematologic/Lymphatic: Reports: no symptoms Allergies: Coded Allergies: No Known Allergies (Unverified , 11/12/18) All Systems: reviewed and negative except above Subjective no events. +blood cultures. on iv abx. on the waiting list for bed at [facility] for higher level of care. Objective Last 24 Hour Vital Signs Date Time Temp Pulse Resp B/P (MAP) Pulse Ox O2 Delivery O2 Flow Rate FiO2 04/17/19 08:00 98.4 60 20 158/64 (95) 96 04/17/19 07:59 61 18 100 Room Air 21 60 17 97 04/17/19 04:05 97.9 69 19 168/70 (102) 95 04/17/19 01:30 174/72 04/17/19 01:11 75 20 100 Room Air 21 77 20 97 04/17/19 00:00 98.0 68 20 174/72 (106) 95 04/16/19 21:11 71 156/107 04/16/19 21:11 71 156/107 04/16/19 21:00 Room Air 04/16/19 20:06 71 20 99 Room Air 21 69 20 96 04/16/19 20:00 97.5 71 18 156/107 (123) 96 04/16/19 16:00 98.1 67 17 141/77 (98) 97 04/16/19 12:44 58 20 100 Room Air 21 58 20 100 11/2/19 12:00 97.0 69 16 149/81 (103) 97 04/16/19 09:24 68 157/76 04/16/19 09:24 68 157/76 Intake and Output 04/16/19 04/17/19 19:00 07:00 Intake Total 600 ml Balance 600 ml Other 600 ml # Voids 3 Laboratory Tests 04/17/19 07:12: White Blood Count 9.6, Red Blood Count 3.39L, Hemoglobin 9.7L, Hematocrit 30.6L , Mean Corpuscular Volume 90, Mean Corpuscular Hemoglobin 28.6, Mean Corpuscular Hemoglobin Concent 31.8L, Red Cell Distribution Width 16.8H, Platelet Count 687H, Mean Platelet Volume 4.5L, Neutrophils (%) (Auto) 59.5, Lymphocytes (%) (Auto) 30.6, Monocytes (%) (Auto) 4.8, Eosinophils (%) (Auto) 4.0H, Basophils (%) (Auto) 1.1, Sodium Level 141, Potassium Level 5.0, Chloride Level 105, Carbon Dioxide Level 28, Anion Gap 8, Blood Urea Nitrogen 58H, Creatinine 4.8H, Estimat Glomerular Filtration Rate , Glucose Level 106, Calcium Level 9.2, Phosphorus Level [Pending], Magnesium Level [Pending], Total Bilirubin 0.4, Aspartate Amino Transf (AST/SGOT) 15, Alanine Aminotransferase ( ALT/SGPT) 11L, Alkaline Phosphatase 103, C-Reactive Protein, Quantitative [ Pending], Pro-B-Type Natriuretic Peptide [Pending], Total Protein 7.4, Albumin 1.8L, Globulin 5.6, Albumin/Globulin Ratio 0.3L, Random Vancomycin Level [ Pending] Height (Feet): 5 Height (Inches): 1.70 Weight (Pounds): 92 General Appearance: WD/WN, alert, confused Cardiovascular: normal rate, regular rhythm Respiratory/Chest: chest wall non-tender, lungs clear, normal breath sounds, no respiratory distress Abdomen: normal bowel sounds, non tender, soft, no organomegaly Edema: no edema noted Arm (L), no edema noted Arm (R), no edema noted Leg (L), no edema noted Leg (R), no edema noted Pedal (L), no edema noted Pedal (R), no edema noted Generalized Neurologic: alert Objective right anterior shoulder swelling Nate Beltran MD Apr 17, 2019 09:11
[2019-04-17] MEDS: Nephrovite tab (Rena-Vite) ORAL SCH (09:26)
[2019-04-17] MEDS: Carvedilol 6.25mg Tab ORAL SCH ×2 (09:26→21:43)
[2019-04-17] MEDS: OLANZapine 2.5mg tab ORAL SCH ×3 (09:26→17:33)
[2019-04-17] MEDS: Megace 400mg/10ml Susp ORAL SCH ×2 (09:27→17:33)
[2019-04-17] MEDS: Liothyronine 5mcg tab ORAL SCH (09:27)
[2019-04-17] MEDS: Triamcinolone 0.1% oint TOPIC SCH ×2 (09:27→17:34)
[2019-04-17] MEDS: Heparin 5000 units/ml inj SUBQ SCH ×2 (09:30→21:43)
[2019-04-17] MEDS ORDERED: Vancomycin 1gm/D5W 275ml IVPB ONE ×2 (12:00)
--- NOTE | 2019-04-17 12:30 | NUR ---
Made Dr. Beltran aware of the Hgb 9.6 and for PT eval. No new order received.
[2019-04-17] MEDS: HYDROcodone/Acetamin 10/325 tab ORAL PRN (13:13)
--- NOTE | 2019-04-17 13:23 | Surgery Progress Note ---
Surgery Progress Note Subjective Additional Comments no acute events comfortable stable on transfer list labs noted tolerating 100% oral intake Objective Last 24 Hour Vital Signs Date Time Temp Pulse Resp B/P (MAP) Pulse Ox O2 Delivery O2 Flow Rate FiO2 04/17/19 12:15 64 17 98 Room Air 21 62 16 96 04/17/19 12:00 97.3 64 20 154/75 (101) 96 04/17/19 09:26 60 158/64 04/17/19 09:26 60 158/64 04/17/19 09:00 Room Air 04/17/19 08:00 98.4 60 20 158/64 (95) 96 04/17/19 07:59 61 18 100 Room Air 21 60 17 97 04/17/19 04:05 97.9 69 19 168/70 (102) 95 04/17/19 01:30 174/72 04/17/19 01:11 75 20 100 Room Air 21 77 20 97 04/17/19 00:00 98.0 68 20 174/72 (106) 95 04/16/19 21:11 71 156/107 04/16/19 21:11 71 156/107 04/16/19 21:00 Room Air 04/16/19 20:06 71 20 99 Room Air 21 69 20 96 04/16/19 20:00 97.5 71 18 156/107 (123) 96 04/16/19 16:00 98.1 67 17 141/77 (98) 97 I&O Intake and Output 04/16/19 04/17/19 19:00 07:00 Intake Total 600 ml Balance 600 ml Other 600 ml # Voids 3 Dressing: saturated Wound: other Drains: other Cardiovascular: RSR Respiratory: decreased breath sounds Abdomen: soft, present bowel sounds, non-distended Extremities: no cyanosis Laboratory Tests Test 04/17/19 07:12 White Blood Count 9.6 K/UL (4.8-10.8) Red Blood Count 3.39 M/UL (4.20-5.40) L Hemoglobin 9.7 G/DL (12.0-16.0) L Hematocrit 30.6 % (37.0-47.0) L Mean Corpuscular Volume 90 FL (80-99) Mean Corpuscular Hemoglobin 28.6 PG (27.0-31.0) Mean Corpuscular Hemoglobin Concent 31.8 G/DL (32.0-36.0) L Red Cell Distribution Width 16.8 % (11.6-14.8) H Platelet Count 687 K/UL (150-450) H Mean Platelet Volume 4.5 FL (6.5-10.1) L Neutrophils (%) (Auto) 59.5 % (45.0-75.0) Lymphocytes (%) (Auto) 30.6 % (20.0-45.0) Monocytes (%) (Auto) 4.8 % (1.0-10.0) Eosinophils (%) (Auto) 4.0 % (0.0-3.0) H Basophils (%) (Auto) 1.1 % (0.0-2.0) Sodium Level 141 MMOL/L (136-145) Potassium Level 5.0 MMOL/L (3.5-5.1) Chloride Level 105 MMOL/L (98-107) Carbon Dioxide Level 28 MMOL/L (21-32) Anion Gap 8 mmol/L (5-15) Blood Urea Nitrogen 58 mg/dL (7-18) H Creatinine 4.8 MG/DL (0.55-1.30) H Estimat Glomerular Filtration Rate mL/min (>60) Glucose Level 106 MG/DL (74-106) Calcium Level 9.2 MG/DL (8.5-10.1) Phosphorus Level 6.0 MG/DL (2.5-4.9) H Magnesium Level 2.0 MG/DL (1.8-2.4) Total Bilirubin 0.4 MG/DL (0.2-1.0) Aspartate Amino Transf (AST/SGOT) 15 U/L (15-37) Alanine Aminotransferase (ALT/SGPT) 11 U/L (12-78) L Alkaline Phosphatase 103 U/L (46-116) C-Reactive Protein, Quantitative 14.7 mg/dL (0.00-0.90) H Pro-B-Type Natriuretic Peptide > 31889 pg/mL (0-125) H Total Protein 7.4 G/DL (6.4-8.2) Albumin 1.8 G/DL (3.4-5.0) L Globulin 5.6 g/dL Albumin/Globulin Ratio 0.3 (1.0-2.7) L Random Vancomycin Level 16.0 ug/mL Plan Problems: (1) Septic arthritis Assessment & Plan: plan for tertiary center eval vs original ortho surgeon eval as will need extensive debridement (2) Malnutrition Assessment & Plan: DAILY ESTIMATED NEEDS: Needs based on ESRD+ HD, underweight/ 38kg 35-40 kcals/kg 7077-1580 total kcals 1.2-1.8 g protein/kg 46-68 g total protein 20-22 mL/kg 760-836 total fluid mLs NUTRITION DIAGNOSIS: * Increased kcal and protein needs r/t underweight status, HD needs as evidenced by pt is underweight per guidelines, ESRD, on HD. * Swallowing and chewing difficulty R/T dysphagia, edentulous status as evidenced by pt on pureed moist texture, NTL diet. CURRENT DIET:Renal, pureed moist w/ NTL PO DIET RECOMMENDATIONS: RENAL, CCHO MED DIET (texture per CAREER ORIENTATION TEACHER or as tolerated) ADDITIONAL RECOMMENDATIONS: 1) Calibrated bed scale wt for accurate CBW -> daily wt monitoring bedscale wt = 38kg (83.6lbs) vs EMR wt of 75lbs 2) Rec WC eval: R trochanter w/ h/o full thickness wound with tunneling 3) Continue Nephrovite x 1 4) 4oz Nepro TID w/ meals 5) Rec NISS : A1C 7.3 on 02/12/19, BG 201 6) Monitor lytes and renal fxn (3) Wound, open, hip or thigh with complication Assessment & Plan: Pt presented on admission large abscess R shoulder exuding large amt of purulent exudate. Erythema and elevated skin temp noted at affected site. Pt exhibited severe pain by crying out each time R upper ext minimally moved. Pt also noted to have generalized maculopapular rash. Skin is very dry and pt noted to persistently scratch at skin. Phytoplex Skin Nourishing lotion applied. Scattered erythema without induration noted to R and L buttocks. Both heels boggy but blanchable. Small tunneled wound R hip. Unable to assess depth of wound secondary to size of wound . Small amt serous exudate noted. Periwound skin is pink and blanchable. Tx.Plan: Apply Triamcinolone 1% cream to body rash BID. Cleanse R hip with Saline. Apply Optifoam drsg. Change Daily and prn. Apply Moisture Barrier Paste to Buttocks. Cover with Optifoam drsg. Change every 3 days and prn. Apply Cavilon Skin Barrier to Both heels. Cover each heel with Optifoam drsg. Change every 7 days and prn. Reposition at least every 2hours or as tolerated. Off-load heels with pillow. (4) Failure to thrive (0-17) Camilo James Apr 17, 2019 13:23
--- NOTE | 2019-04-17 14:55 | Nephrology Progress Note ---
Assessment/Plan Problem List: (1) ESRD (end stage renal disease) (2) Septic arthritis (3) Malnutrition (4) Diabetes mellitus Assessment (1) ESRD (end stage renal disease) (2) Diabetes mellitus (3) Failure to thrive (0-17) severe malnutrition (4) Anemia in CKD (chronic kidney disease) (5) Hypertensive kidney disease (6) h/o Staphylococcus aureus bacteremia - septic shoulder . h/o right hip abcess Plan no labs today keep bp and BS in check HD as needed done 04/15 Inflammatory markers per orders Subjective ROS Limited/Unobtainable: No Constitutional: Reports: malaise, weakness Objective Objective Last 24 Hour Vital Signs Date Time Temp Pulse Resp B/P (MAP) Pulse Ox O2 Delivery O2 Flow Rate FiO2 04/17/19 12:15 64 17 98 Room Air 21 62 16 96 04/17/19 12:00 97.3 64 20 154/75 (101) 96 04/17/19 09:26 60 158/64 04/17/19 09:26 60 158/64 04/17/19 09:00 Room Air 04/17/19 08:00 98.4 60 20 158/64 (95) 96 04/17/19 07:59 61 18 100 Room Air 21 60 17 97 04/17/19 04:05 97.9 69 19 168/70 (102) 95 04/17/19 01:30 174/72 04/17/19 01:11 75 20 100 Room Air 21 77 20 97 04/17/19 00:00 98.0 68 20 174/72 (106) 95 04/16/19 21:11 71 156/107 04/16/19 21:11 71 156/107 04/16/19 21:00 Room Air 04/16/19 20:06 71 20 99 Room Air 21 69 20 96 04/16/19 20:00 97.5 71 18 156/107 (123) 96 04/16/19 16:00 98.1 67 17 141/77 (98) 97 Intake and Output 04/16/19 04/17/19 19:00 07:00 Intake Total 600 ml Balance 600 ml Other 600 ml # Voids 3 Laboratory Tests 04/17/19 07:12: White Blood Count 9.6, Red Blood Count 3.39L, Hemoglobin 9.7L, Hematocrit 30.6L , Mean Corpuscular Volume 90, Mean Corpuscular Hemoglobin 28.6, Mean Corpuscular Hemoglobin Concent 31.8L, Red Cell Distribution Width 16.8H, Platelet Count 687H, Mean Platelet Volume 4.5L, Neutrophils (%) (Auto) 59.5, Lymphocytes (%) (Auto) 30.6, Monocytes (%) (Auto) 4.8, Eosinophils (%) (Auto) 4.0H, Basophils (%) (Auto) 1.1, Sodium Level 141, Potassium Level 5.0, Chloride Level 105, Carbon Dioxide Level 28, Anion Gap 8, Blood Urea Nitrogen 58H, Creatinine 4.8H, Estimat Glomerular Filtration Rate , Glucose Level 106, Calcium Level 9.2, Phosphorus Level 6.0H, Magnesium Level 2.0, Total Bilirubin 0.4, Aspartate Amino Transf (AST/SGOT) 15, Alanine Aminotransferase (ALT/SGPT) 11L, Alkaline Phosphatase 103, C-Reactive Protein, Quantitative 14.7H, Pro-B- Type Natriuretic Peptide > 71346T, Total Protein 7.4, Albumin 1.8L, Globulin 5.6 , Albumin/Globulin Ratio 0.3L, Random Vancomycin Level 16.0 Height (Feet): 5 Height (Inches): 1.70 Weight (Pounds): 90 General Appearance: lethargic Cardiovascular: normal rate Respiratory/Chest: decreased breath sounds Abdomen: distended Objective no change William Blackwood MD Apr 17, 2019 14:55
--- NOTE | 2019-04-17 15:22 | NUR ---
Called [facility] nephrology for pt's scheduled dialysis tomorrow per Dr. Blackwood's order. Spoke to [employer] at [facility] nephrology. She will page the on-call nurse and the nurse will come tomorrow for pt's dialysis.
--- NOTE | 2019-04-17 19:15 | NUR ---
HAND-OFF: Report given to SANYA Oates.
--- NOTE | 2019-04-17 19:25 | NUR ---
NURSE NOTES: Received report from Nurse SANYA Coppoal. Pt is sleeping in bed. On RA, no apparent distress noted. IV site is intact, wrapped in kerlix, dressing to R shoulder intact, dry. . Bed locked in lowest position with bed alarm on. Side rails up x3. Call light within reach. Will continue to monitor.
--- NOTE | 2019-04-17 22:31 | Progress Note ---
DATE: 04/17/2019 CARDIOLOGY PROGRESS NOTE SUBJECTIVE: Blood pressure parameters slightly elevated. No respiratory distress. Still with pain on the shoulder. Awaiting transfer to higher level of care. OBJECTIVE: VITAL SIGNS: Blood pressure 154/75, pulse 64, respirations 20, and afebrile. LUNGS: Clear. CARDIAC: Regular. Normal S1 and S2 with a fourth heart sound. ABDOMEN: Soft. EXTREMITIES: Tenderness right shoulder. No edema. LABORATORY DATA: Sodium 141, potassium 5, bicarb 28, BUN 50, creatinine 4.8, and magnesium 2. Pro-natriuretic peptide over 35,000. Albumin 1.8. White count 9.6 and hemoglobin 9.7. IMPRESSION: 1. Bacteremia. 2. Septic arthritis of the right shoulder. 3. End-stage renal disease. 4. Hypertensive heart disease with labile blood pressure. 5. Cerebrovascular disease with dementia. 6. Increased bacteremia with increased risk for endocarditis. PLAN: 1. Antimicrobials. 2. Respiratory hygiene. 3. Check echocardiogram. 4. Await transfer to higher level of care. 5. Titrate antihypertensives with p.r.n. therapy for blood pressure spikes. Abel Stubbs M.D. DR: Luli JOB#: [id number] CC:
[2019-04-18] VITALS: BP 177/81
[2019-04-18] MEDS: HydrALAZINE 25mg tab ORAL PRN ×2 (00:24→15:31)
--- NOTE | 2019-04-18 00:48 | NUR ---
NURSE NOTES: R shoulder dressing changed, clean, dry and intact
[2019-04-18] MEDS: Albuterol/Ipratropium 3ml neb HHN SCH ×3 (01:53→13:51)
[2019-04-18 03:35] VITALS: BP 178/98
[2019-04-18] MEDS: LORazepam 1mg tab ORAL PRN (04:04)
[2019-04-18] MEDS: HYDROcodone/Acetamin 10/325 tab ORAL PRN (04:07)
--- NOTE | 2019-04-18 07:18 | NUR ---
HAND-OFF: Report given to SANYA Mccord.
--- NOTE | 2019-04-18 07:46 | NUR ---
NURSE NOTES: Patient received in stable condition, resting in bed. Breathing unlabored on room air, no apparent signs of distress observed. Patient has IV on left wrist, saline locked. Scheduled for dialysis today. RN called [facility] to confirm time of arrival of dialysis nurse. Jai Alai Player Asim stated he will contact the medical staff services manager and have him call unit once confirmed. Permacath dressing c/d/i. Dressing on right shoulder clean, dry and intact. Bed locked in lowest position, bed alarm on. Call light placed within reach, will continue to monitor.
[2019-04-18 08:00] VITALS: BP 152/92
[2019-04-18] MEDS: OLANZapine 2.5mg tab ORAL SCH ×2 (08:15→13:00)
[2019-04-18] MEDS: Nephrovite tab (Rena-Vite) ORAL SCH (08:15)
[2019-04-18] MEDS: Megace 400mg/10ml Susp ORAL SCH (08:15)
[2019-04-18] MEDS: Carvedilol 6.25mg Tab ORAL SCH (08:15)
[2019-04-18] MEDS: Liothyronine 5mcg tab ORAL SCH (08:15)
[2019-04-18] MEDS: Heparin 5000 units/ml inj SUBQ SCH (08:21)
[2019-04-18] MEDS: Triamcinolone 0.1% oint TOPIC SCH (08:27)
--- NOTE | 2019-04-18 09:01 | General Progress Note ---
Assessment/Plan Problem List: (1) Septic arthritis ICD Codes: M00.9 - Pyogenic arthritis, unspecified SNOMED: 167998610 (2) ESRD (end stage renal disease) ICD Codes: N18.6 - End stage renal disease SNOMED: 07358139 (3) Hypertensive kidney disease ICD Codes: I12.9 - Hypertensive chronic kidney disease with stage 1 through stage 4 chronic kidney disease, or unspecified chronic kidney disease SNOMED: 09648984 (4) possible septic arthritis Status: stable Assessment/Plan: IV abx id eval appreciated HD per renal ortho noted try to transfer to [facility] on the transfer list Subjective ROS Limited/Unobtainable: No Constitutional: Reports: malaise, weakness HEENT: Reports: no symptoms Cardiovascular: Reports: no symptoms Respiratory: Reports: cough Gastrointestinal/Abdominal: Reports: no symptoms Genitourinary: Reports: no symptoms Neurologic/Psychiatric: Reports: pre-existing deficit Endocrine: Reports: no symptoms Hematologic/Lymphatic: Reports: no symptoms Allergies: Coded Allergies: No Known Allergies (Unverified , 11/12/18) All Systems: reviewed and negative except above Subjective no events. less congested. +blood cultures. on iv abx. on the waiting list for bed at [facility] for higher level of care. Objective Last 24 Hour Vital Signs Date Time Temp Pulse Resp B/P (MAP) Pulse Ox O2 Delivery O2 Flow Rate FiO2 04/18/19 08:15 72 152/92 04/18/19 08:00 96.8 72 18 152/92 (112) 98 04/18/19 06:54 74 18 98 Room Air 21 68 18 96 04/18/19 03:35 98.0 73 23 178/98 (124) 95 04/18/19 01:53 72 18 99 Room Air 21 70 18 97 04/18/19 00:24 177/81 04/18/19 00:00 98.4 69 21 177/81 (113) 96 04/17/19 21:43 68 164/80 04/17/19 21:43 68 164/80 04/17/19 21:00 Room Air 04/17/19 20:00 98.2 68 21 164/80 (108) 95 04/17/19 19:59 69 17 100 Room Air 21 67 16 98 04/17/19 17:00 61 151/72 (98) 04/17/19 16:19 171/75 04/17/19 16:00 98.1 66 18 171/75 (107) 92 04/17/19 12:15 64 17 98 Room Air 21 62 16 96 04/17/19 12:00 97.3 64 20 154/75 (101) 96 04/17/19 09:26 60 158/64 04/17/19 09:26 60 158/64 Intake and Output 04/17/19 04/18/19 19:00 07:00 Intake Total 385 ml Balance 385 ml Intake Oral 385 ml # Voids 1 4 Height (Feet): 5 Height (Inches): 1.70 Weight (Pounds): 90 General Appearance: WD/WN, confused Neck: supple Cardiovascular: regular rhythm Respiratory/Chest: lungs clear, normal breath sounds Abdomen: normal bowel sounds, non tender, soft, no organomegaly Edema: no edema noted Arm (L), no edema noted Arm (R), no edema noted Leg (L), no edema noted Leg (R), no edema noted Pedal (L), no edema noted Pedal (R), no edema noted Generalized Objective right anterior shoulder swelling Nate Beltran MD Apr 18, 2019 09:01
--- NOTE | 2019-04-18 09:14 | NUR ---
RD ASSESSMENT & RECOMMENDATIONS SEE CARE ACTIVITY FOR COMPLETE ASSESSMENT DAILY ESTIMATED NEEDS: Needs based on ESRD+ HD, underweight/ 38kg 35-40 kcals/kg 0790-5932 total kcals 1.2-1.8 g protein/kg 46-68 g total protein 20-22 mL/kg 760-836 total fluid mLs NUTRITION DIAGNOSIS: * Increased kcal and protein needs r/t underweight status, HD needs as evidenced by pt is underweight per guidelines, ESRD, on HD. * Swallowing and chewing difficulty R/T dysphagia, edentulous status as evidenced by pt on pureed moist texture, NTL diet. CURRENT DIET:Renal, pureed moist w/ NTL + 4oz Nepro TID PO DIET RECOMMENDATIONS: RENAL, CCHO MED DIET (texture per BILINGUAL CUSTOMER SERVICE or as tolerated) ADDITIONAL RECOMMENDATIONS: 1) Calibrated bed scale wt for accurate CBW -> daily wt monitoring bedscale wt = 38kg (83.6lbs) vs EMR wt of 75lbs 2) Wound care: AILYN in 6-8oz water BID if tolerated 3) Continue Nephrovite x 1; Vit C as per renal MD 4) 4oz Nepro TID w/ meals 5) Rec NISS : A1C 7.3 on 02/12/19, BG 201-> Updated A1C 6.1 6) Monitor lytes and renal fxn
--- NOTE | 2019-04-18 10:50 | Surgery Progress Note ---
Surgery Progress Note Subjective Additional Comments leukocytosis improved labs noted otherwise exam stable tolerating diet dressings changed from saturation Objective Last 24 Hour Vital Signs Date Time Temp Pulse Resp B/P (MAP) Pulse Ox O2 Delivery O2 Flow Rate FiO2 04/18/19 09:00 Room Air 04/18/19 08:15 72 152/92 04/18/19 08:00 96.8 72 18 152/92 (112) 98 04/18/19 06:54 74 18 98 Room Air 21 68 18 96 04/18/19 03:35 98.0 73 23 178/98 (124) 95 04/18/19 01:53 72 18 99 Room Air 21 70 18 97 04/18/19 00:24 177/81 04/18/19 00:00 98.4 69 21 177/81 (113) 96 04/17/19 21:43 68 164/80 04/17/19 21:43 68 164/80 04/17/19 21:00 Room Air 04/17/19 20:00 98.2 68 21 164/80 (108) 95 04/17/19 19:59 69 17 100 Room Air 21 67 16 98 04/17/19 17:00 61 151/72 (98) 04/17/19 16:19 171/75 04/17/19 16:00 98.1 66 18 171/75 (107) 92 04/17/19 12:15 64 17 98 Room Air 21 62 16 96 04/17/19 12:00 97.3 64 20 154/75 (101) 96 I&O Intake and Output 04/17/19 04/18/19 19:00 07:00 Intake Total 385 ml Balance 385 ml Intake Oral 385 ml # Voids 1 4 Dressing: saturated Wound: other Drains: other Cardiovascular: RSR Respiratory: decreased breath sounds Abdomen: soft, present bowel sounds, non-distended Extremities: edema, tenderness, no cyanosis Plan Problems: (1) Septic arthritis Assessment & Plan: plan for tertiary center eval vs original ortho surgeon eval as will need extensive debridement (2) Malnutrition Assessment & Plan: DAILY ESTIMATED NEEDS: Needs based on ESRD+ HD, underweight/ 38kg 35-40 kcals/kg 7258-5102 total kcals 1.2-1.8 g protein/kg 46-68 g total protein 20-22 mL/kg 760-836 total fluid mLs NUTRITION DIAGNOSIS: * Increased kcal and protein needs r/t underweight status, HD needs as evidenced by pt is underweight per guidelines, ESRD, on HD. * Swallowing and chewing difficulty R/T dysphagia, edentulous status as evidenced by pt on pureed moist texture, NTL diet. CURRENT DIET:Renal, pureed moist w/ NTL PO DIET RECOMMENDATIONS: RENAL, CCHO MED DIET (texture per MALT SPECIFICATIONS CONTROL ASSISTANT or as tolerated) ADDITIONAL RECOMMENDATIONS: 1) Calibrated bed scale wt for accurate CBW -> daily wt monitoring bedscale wt = 38kg (83.6lbs) vs EMR wt of 75lbs 2) Rec WC eval: R trochanter w/ h/o full thickness wound with tunneling 3) Continue Nephrovite x 1 4) 4oz Nepro TID w/ meals 5) Rec NISS : A1C 7.3 on 02/12/19, BG 201 6) Monitor lytes and renal fxn (3) Wound, open, hip or thigh with complication Assessment & Plan: Pt presented on admission large abscess R shoulder exuding large amt of purulent exudate. Erythema and elevated skin temp noted at affected site. Pt exhibited severe pain by crying out each time R upper ext minimally moved. Pt also noted to have generalized maculopapular rash. Skin is very dry and pt noted to persistently scratch at skin. Phytoplex Skin Nourishing lotion applied. Scattered erythema without induration noted to R and L buttocks. Both heels boggy but blanchable. Small tunneled wound R hip. Unable to assess depth of wound secondary to size of wound . Small amt serous exudate noted. Periwound skin is pink and blanchable. Tx.Plan: Apply Triamcinolone 1% cream to body rash BID. Cleanse R hip with Saline. Apply Optifoam drsg. Change Daily and prn. Apply Moisture Barrier Paste to Buttocks. Cover with Optifoam drsg. Change every 3 days and prn. Apply Cavilon Skin Barrier to Both heels. Cover each heel with Optifoam drsg. Change every 7 days and prn. Reposition at least every 2hours or as tolerated. Off-load heels with pillow. (4) Failure to thrive (0-17) Camilo James Apr 18, 2019 10:50
[2019-04-18] MEDS ORDERED: ceFAZolin sod 2 GM in D5W 110 ML IVPB SCH (12:00)
--- NOTE | 2019-04-18 14:45 | NUR ---
TRANSFER UPDATE SPOKE WITH GENOVEVA AT [facility] PATIENT IS TRANSFERRING TO HIGHER LEVEL OF CARE [facility] RO[facility] [address] ACCEPTING PHYSICIAN ~ DR MCARTHUR T:[phone] FOR NURSE TO NURSE REPORT [facility] HAS BEEN PLACED ON WILL CALL .....TO BE ACTIVATED BY RN ONCE FILM HAVE BEEN CONVERTED TO DISC
[2019-04-18] MEDS ORDERED: VANCOMYCIN750 MG/150 IV (14:50)
[2019-04-18 15:00] VITALS: BP 188/80
[2019-04-18] MEDS ORDERED: KENALOG 0.025%15 GM APPLIC (15:09)
--- NOTE | 2019-04-18 15:38 | Nephrology Progress Note ---
Assessment/Plan Problem List: (1) ESRD (end stage renal disease) (2) Septic arthritis (3) Malnutrition (4) Diabetes mellitus Assessment (1) ESRD (end stage renal disease) (2) Diabetes mellitus (3) Failure to thrive (0-17) severe malnutrition (4) Anemia in CKD (chronic kidney disease) (5) Hypertensive kidney disease (6) h/o Staphylococcus aureus bacteremia - septic shoulder . h/o right hip abcess Plan seen during dialysis no labs today keep bp and BS in check HD as needed Inflammatory markers per orders Subjective ROS Limited/Unobtainable: No Constitutional: Reports: malaise Objective Objective Last 24 Hour Vital Signs Date Time Temp Pulse Resp B/P (MAP) Pulse Ox O2 Delivery O2 Flow Rate FiO2 04/18/19 15:31 188/80 04/18/19 15:00 62 16 188/80 (116) 04/18/19 13:52 72 20 97 Room Air 21 74 20 95 04/18/19 11:08 152/92 04/18/19 09:00 Room Air 04/18/19 08:15 72 152/92 04/18/19 08:00 96.8 72 18 152/92 (112) 98 04/18/19 06:54 74 18 98 Room Air 21 68 18 96 04/18/19 03:35 98.0 73 23 178/98 (124) 95 04/18/19 01:53 72 18 99 Room Air 21 70 18 97 04/18/19 00:24 177/81 04/18/19 00:00 98.4 69 21 177/81 (113) 96 04/17/19 21:43 68 164/80 04/17/19 21:43 68 164/80 04/17/19 21:00 Room Air 04/17/19 20:00 98.2 68 21 164/80 (108) 95 04/17/19 19:59 69 17 100 Room Air 21 67 16 98 04/17/19 17:00 61 151/72 (98) 04/17/19 16:19 171/75 04/17/19 16:00 98.1 66 18 171/75 (107) 92 Intake and Output 04/17/19 04/18/19 19:00 07:00 Intake Total 385 ml Balance 385 ml Intake Oral 385 ml # Voids 1 4 Height (Feet): 5 Height (Inches): 1.70 Weight (Pounds): 88 General Appearance: no apparent distress Cardiovascular: normal peripheral pulses Respiratory/Chest: lungs clear Abdomen: soft Objective no change William Blackwood MD Apr 18, 2019 15:38
[2019-04-18] MEDS ORDERED: HydrALAZINE 25mg tab ORAL PRN (15:45)
[2019-04-18 15:48] VITALS: BP 178/93
--- NOTE | 2019-04-18 16:19 | NUR ---
NURSE NOTES: Patient is transferred to [facility], report given to Leti RN. Patient was in stable condition during discharge. Breathing unlabored on room air. No signs of apparent distress observed. IV site kept in on left wrist per Leti's request. Wrapped with kerlix for protection.
--- NOTE | 2019-04-18 20:00 | Consultation ---
DATE OF CONSULTATION: 04/18/2019 INFECTIOUS DISEASES CONSULTATION CONSULTING PHYSICIAN: Melissa Solares M.D. REFERRING PHYSICIAN: Nate Beltran M.D. REASON FOR CONSULTATION: Possible right shoulder septic arthritis. HISTORY OF PRESENTING ILLNESS: This is a 79-year-old lady with history of diabetes, hypertension, renal failure, anemia, and schizophrenia, who recently had a cellulitis of the right shoulder. She had debridement and now she has had increasing erythema and swelling around the right shoulder and Infectious Diseases consultation has been obtained for antibiotics. PAST MEDICAL HISTORY: 1. History of diabetes. 2. Hypertension. 3. Renal failure. 4. Anemia. 5. Schizophrenia. 6. Right shoulder abscess, status post debridement. SOCIAL HISTORY: She does not smoke, drink, or use drugs. FAMILY HISTORY: Noncontributory. REVIEW OF SYSTEMS: Unable to obtain currently. MEDICATIONS: As an inpatient, the patient is on clonidine, lorazepam, Cochrane, Mucomyst, albuterol, ipratropium, levothyroxine, carvedilol, hydralazine, triamcinolone cream, amlodipine, vitamin B and C, folic acid, olanzapine, Megestrol, Renvela, subcu heparin, IV vancomycin, Synthroid, Protonix, Remeron, hydroxyzine, Tylenol, Dulcolax, and milk of magnesia. ALLERGIES: No known drug allergies. PHYSICAL EXAMINATION: VITAL SIGNS: Temperature of 96.8, T-max of 98.4, pulse of 72, respiratory rate of 18, blood pressure 152/92, and O2 saturation of 98%. HEENT: Pupils equally reactive to light and accommodation. Mouth appears clean without thrush. NECK: Supple. No adenopathy. No JVD. CARDIOVASCULAR: Regular rate and rhythm. No murmurs. LUNGS: Clear to auscultation bilaterally. No crackles. No wheezes. ABDOMEN: Soft and nontender. No organomegaly. EXTREMITIES: No cyanosis, no clubbing, and no edema. SKIN: Right subclavian catheter noted. Right shoulder wound noted with pus obtained previously. LABORATORY DATA: White count 9.6. White count of 17.9 on 04/14/2019. Hemoglobin 9.7, hematocrit 30.6, MCV 90, platelet count of 687,000 with neutrophils of 59%. Sodium 141, potassium 5, chloride 105, bicarb 28, BUN 58, creatinine 4.8, glucose 106, and calcium of 9.2. Total bilirubin 0.4, AST 15, ALT 11, alkaline phosphatase 103, total protein 7.4, and albumin 1.8. Blood cultures growing Staph aureus, which is susceptible to oxacillin. Nasal culture is positive for MRSA. Rectal swab positive for VRE. Shoulder CT is showing septic arthritis with interval periarticular erosion of the glenohumeral joint, amount of subacromial subdeltoid abscess has improved and may be spontaneously draining, and the bony erosions and osteomyelitis has progressed. ASSESSMENT: 1. This is a 79-year-old lady with history of diabetes, hypertension, renal failure, who comes in with right shoulder swelling and drainage and is found to have right shoulder septic arthritis, abscess, and osteomyelitis. 2. Staph aureus sepsis, could be secondary to right shoulder septic arthritis. 3. Renal failure. 4. Diabetes. 5. Hypertension. 6. Leukocytosis, improving. PLAN: 1. Discontinue IV vancomycin. 2. We will start the patient on Ancef. 3. We will order wound cultures from the right shoulder. 4. Plan as per Surgery. 5. We will order a 2D echocardiogram. 6. We will follow up cultures. I would like to thank, Dr. Beltran, for this consultation. Melissa Solares M.D. DR: Fito JOB#: [id number] CC: Nate Beltran M.D.
--- NOTE | 2019-04-19 04:15 | Progress Note ---
DATE: 04/18/2019 CARDIOLOGY PROGRESS NOTE SUBJECTIVE: pain, but controlled with current therapies in the right shoulder pain. Tolerating diet. Dressings continued to be saturated. OBJECTIVE: VITAL SIGNS: Blood pressure 152/92 to 178/98, heart rate 68 to 73, respiratory rate 18 to 23, afebrile, and oxygen saturation on room air 96%. LUNGS: Bilateral breath sounds with no wheezes. CARDIAC: Regular rhythm and rate. Normal S1 and S2 with a fourth heart sound. ABDOMEN: Soft. EXTREMITIES: No edema. Shoulder site dressing in place. IMPRESSION: 1. Right septic shoulder with recurring bacteremia from MRSA. 2. End-stage renal disease. 3. Hypertensive heart disease with malignant range blood pressure. 4. Hypertensive urgency. 5. Acute on chronic diastolic congestive heart failure. PLAN: 1. IV antimicrobials. 2. Surveillance blood cultures. 3. Consideration for JAYNE if recurring bacteremia. 4. Will need I and D of right shoulder and possible humerus resection. 5. Transferring to higher level of care when bed available at [facility]. 6. Titrating antihypertensive therapy with additional medications on a p.r.n. basis for persisting blood pressure spikes. Abel Stubbs M.D. DR: ARETHA JOB#: [id number] CC:
--- NOTE | 2019-04-19 07:48 | Cardiology Report ---
APPROVED REPORT EXAM: Two-dimensional and M-mode echocardiogram with Doppler and color Doppler. INDICATION Endocarditis M-Mode DIMENSIONS IVSd1.2 (0.7-1.1cm)Left Atrium (MM)2.4 (1.6-4.0cm) LVDd3.7 (3.5-5.6cm)Aortic Root2.8 (2.0-3.7cm) PWd1.2 (0.7-1.1cm)Aortic Cusp Exc.1.8 (1.5-2.0cm) LVDs2.5 (2.5-4.0cm) PWs1.7 cm Normal left ventricular chamber size. Mildly depressed systolic function and wall motion. Left ventricular ejection fraction estimated to be 50-55 %. Mild left ventricular hypertrophy. Trivial pericardial effusion. All other cardiac chamber sizes are within normal limits. Focal aortic valve sclerosis with adequate cusp excursion. Thickened mitral valve leaflets with normal excursion. Mild mitral annulus and aortic root calcification. Normal pulmonic valve structure. Normal tricuspid valve structure. IVC is normal in size without physiological collapse. A color flow and spectral Doppler study was performed and revealed: Mild to moderate aortic regurgitation. Mild mitral regurgitation. Mitral diastolic velocities suggest mild left ventricular diastolic dysfunction (Grade I). Mild tricuspid regurgitation. Tricuspid systolic velocities suggests peak right ventricular systolic pressure of 28 mmHg. Trace pulmonic regurgitation present.
--- NOTE | 2019-04-19 12:35 | Discharge Summary ---
Discharge Summary Discharge Summary _ DATE OF ADMISSION: 04/13/2019 DATE OF DISCHARGE: 04/18/2019 DISCHARGED BY: Dr. Beltran REASON FOR ADMISSION: 79 years old female with past medical history of end-stage renal disease, on hemodialysis, diabetes mellitus, hypertension, chronic anemia, schizophrenia, was recently hospitalized with septic shoulder requiring orthopedic intervention , irrigation and debridement , and subsequent wound VAC . Patient received full course of antibiotic with dialysis and was doing well. At the facility nursing staff noted that there was swelling , induration and erythema around the anterior aspect of the right shoulder. No reports of fever or chills. In light of the prior history of septic arthritis and bacteremia, patient was admitted for evaluation and further management. Upon evaluation patient had leukocytosis WBC 17.9, hemoglobin 11.4, hematocrit 30.1. Platelet count 767. BUN 51, creatinine 2.8. Glucose 201. Albumin 2.1. Patient admitted to medical surgical floor for further management. CONSULTANTS: wire galvanizer Dr. Enoc GUADALUPE specialist Dr. Solares driver sales Dr. Blackwood surgery Dr. James orthopedic surgery Dr. Logansebastian [facility]: Patient admitted to medical surgical floor. CT scan of the right shoulder revealed septic arthritis with interval periarticular erosion of the glenohumeral joint, heterogeneous joint effusion and subacromial/subdeltoid fluid with trace air. Amount of subacromial subdeltoid abscess has improved and may be spontaneously draining through a small defect anterolaterally. However the bony erosion and osteomyelitis has progressed. Patient started on antibiotic . Blood culture revealed Staph aureus. Hemodialysis provided as per driver sales with close monitoring of volumes, renal parameters , and electrolytes . Electrolytes further corrected as needed. [employer] followed. Echocardiogram revealed ejection fraction 50 to 55% with mild left ventricular hypertrophy. Mild right ventricular systolic pressure of 28. Mild to moderate aortic regurgitation. CXR demonstrated right sided hemodialysis catheter. Antihypertensive regimen was titrated with additional medication on as needed basis for persistent blood pressure spikes. Blood pressure was managed with calcium channel elissa. Hydralazine was on board to use on as-needed basis. DVT prophylaxis provided. Orthopedic surgeon seen and evaluated patient. Right shoulder wound was actively draining. Patient needs irrigation and debridement and probably may require extensive proximal humerus resection. Surgeon recommended that patient should be either seen by her prior surgeon if this could be done [place] [facility] [place] or preferably transfer to tertiary center for higher level of care. Pain management was addressed as needed. Levothyroxine continued. Bowel regimen instituted. Supportive care provided. Hemoglobin A1c 6.1, at goal. Blood sugar was closely monitored, remained stable. Leukocytosis trended down and resolved. Fevers resolved. Repeat surveillance blood culture and consider JAYNE for recurrent bacteremia. Protein supplement provided as per registered nurse first assistant recommendation. Patient subsequently was transferred to higher level of care for further management. 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 DISCHARGE INSTRUCTIONS: Patient was transferred to [facility] for higher level of care. I have been assigned to dictate discharge summary for this account. I was not involved in the patient's management. Kathi Aguero NP Apr 19, 2019 12:35
== END 2019-04-18 16:16 | disposition short-term general hospital (02) | DRG 548 ==
LOC: 4E 20:25
PROC: 5A1D70Z Performance of Urinary Filtration, Intermittent, Less than 6 Hours Per Day (ICD-10-PCS; principal; 2019-04-15)
DX: M00.9 Pyogenic arthritis, unspecified (principal); N18.6 End stage renal disease; E43 Unspecified severe protein-calorie malnutrition; I50.33 Acute on chronic diastolic (congestive) heart failure; L02.413 Cutaneous abscess of right upper limb; M86.8X1 Other osteomyelitis, shoulder; Z68.1 Body mass index [BMI] 19.9 or less, adult; I13.2 Hypertensive heart and chronic kidney disease with heart failure and with stage 5 chronic kidney disease, or end stage renal disease; R62.7 Adult failure to thrive; E11.69 Type 2 diabetes mellitus with other specified complication; B95.61 Methicillin susceptible Staphylococcus aureus infection as the cause of diseases classified elsewhere; I16.0 Hypertensive urgency; E11.22 Type 2 diabetes mellitus with diabetic chronic kidney disease; Z99.2 Dependence on renal dialysis; Z79.4 Long term (current) use of insulin; D63.1 Anemia in chronic kidney disease; Z86.14 Personal history of Methicillin resistant Staphylococcus aureus infection; F03.90 Unspecified dementia, unspecified severity, without behavioral disturbance, psychotic disturbance, mood disturbance, and anxiety
CPT/HCPCS: 36415; 71045; 80053; 80061; 80202; 82607; 82728; 82746; 82977; 83036; 83540; 83550; 83735; 83880; 84100; 84439; 84443; 84481; 84550; 85025; 86140; 86706; 87040; 87081; 87181; 93306; 94640; 94664; J7620

== ENCOUNTER 2019-08-02 16:09 | Inpatient (IN) | payer MEDICARE, OTHER ==
[~2019-08-02] VITALS: Ht 162.6 cm; Wt 51.0 kg
[~2019-08-02 16:09] MED LIST changes: +KENALOG 0.025%15 GM APPLIC
[2019-08-02 16:20] VITALS: BP 106/70
--- NOTE | 2019-08-02 16:55 | Diagnostic Imaging Report ---
Indication: Shortness of breath Technique: One view of the chest Comparison: 04/16/2019 Findings: Again demonstrated is a right jugular tunneled dialysis catheter, tip of which projects deep within the right atrium.. Development of left-sided pleural effusion. Interval development of bilateral interstitial infiltrates versus edema, predominantly perihilar and at the lung bases. The heart border is obscured. There is evidence of interim destruction of the right humeral head Impression: Bilateral interstitial infiltrates versus edema Large left pleural effusion Interim destruction of the right humeral head. Note that prior shoulder CT scan dated 04/14/2019 was suggestive of septic arthritis of the right shoulder
[2019-08-02 17:08] LABS: HEMATOCRIT 28.6 % (37.0-47.0); HEMOGLOBIN 9.1 G/DL (12.0-16.0); MEAN CORPUSCULAR VOLUME 92 FL (80-99); PLATELET COUNT 50 K/UL (150-450); RED BLOOD COUNT 3.12 M/UL (4.20-5.40); RED CELL DISTRIBUTION WIDTH 20.4 % (11.6-14.8); WHITE BLOOD COUNT 3.1 K/UL (4.8-10.8)
[2019-08-02 17:15] LABS: ANION GAP 6 mmol/L (5-15); BLOOD UREA NITROGEN 16 mg/dL (7-18); CALCIUM 8.5 MG/DL (8.5-10.1); CARBON DIOXIDE 35 MMOL/L (21-32); CHLORIDE 99 MMOL/L (98-107); CREATININE 1.5 MG/DL (0.55-1.30); POTASSIUM 4.4 MMOL/L (3.5-5.1); SODIUM 140 MMOL/L (136-145)
[2019-08-02] MEDS ORDERED: Morphine Sulfate 2mg/ml Inj(IV/IM USE ONLY) IVP ONE (17:15)
[2019-08-02 17:29] LABS: ALANINE AMINOTRANSFERASE 17 U/L (12-78); ALBUMIN 1.6 G/DL (3.4-5.0); ALBUMIN/GLOBULIN RATIO 0.4 (1.0-2.7); ALKALINE PHOSPHATASE 112 U/L (46-116); ASPARTATE AMINO TRANSFERASE 49 U/L (15-37); BILIRUBIN,TOTAL 0.2 MG/DL (0.2-1.0); CKMB 3.9 NG/ML (0.0-3.6); CREATINE KINASE 39 U/L (26-308)
[2019-08-02 18:40] LABS: APPEARANCE,URINE CLEAR; COLOR,URINE PALE YELLOW
[2019-08-02 18:41] LABS: BILIRUBIN, URINE NEGATIVE (NEGATIVE); GLUCOSE, URINE (UA) NEGATIVE (NEGATIVE); KETONES,URINE NEGATIVE (NEGATIVE); LEUKOCYTE ESTERASE ,URINE 3+ (NEGATIVE); NITRITE,URINE NEGATIVE (NEGATIVE); PROTEIN,URINE 3+ (NEGATIVE); UROBILINOGEN,URINE NORMAL MG/DL (0.0-1.0)
--- NOTE | 2019-08-02 19:12 | Emergency Room Report ---
History of Present Illness General Chief Complaint: Generalized Weakness Source: Patient, Medical Record, EMS Present Illness HPI 79-year-old female presents ED for evaluation. Brought in from dialysis center for hypotension. Developed hypotension during dialysis. Per EMS BP appears okay. Patient on arrival appears to be in distress. On oxygen. Per EMS this is patient's baseline mentation. History of end-stage renal disease on dialysis. Patient is unable to provide any additional history at this time. No reported fevers or chills. No other aggravating relieving factors. No other associated symptoms Allergies: Coded Allergies: VANCOMYCIN (Unverified Allergy, Unknown, 08/02/19) Patient History Past Medical History: DM, HTN, CVA/TIA, dementia, renal disease, dialysis Reviewed Nursing Documentation: PMH: Agreed; PSxH: Agreed Nursing Documentation-PMH Past Medical History: No History, Except For Hx Hypertension: Yes Hx Diabetes: Yes Hx Cancer: No Hx Gastrointestinal Problems: Yes Hx Dialysis: Yes - HD-rt. upper perma cath Hx Neurological Problems: Yes - general weakness Hx Cerebrovascular Accident: Yes Hx Dementia: Yes Hx Aphasia: Yes Hx Dysphasia: Yes Hx Weakness: Yes Review of Systems All Other Systems: limited Physical Exam Vital Signs Date Time Temp Pulse Resp B/P (MAP) Pulse Ox O2 Delivery O2 Flow Rate FiO2 08/02/19 16:06 98.2 55 20 106/70 (82) 99 Non-Rebreather 15.0 Sp02 EP Interpretation: reviewed, normal General Appearance: no apparent distress, alert, GCS 15, non-toxic, thin Head: normocephalic Eyes: bilateral eye normal inspection, bilateral eye PERRL ENT: normal ENT inspection Neck: normal inspection Respiratory: chest non-tender, lungs clear, crackles, speaking full sentences, other - dialysis cathter R chest Cardiovascular #1: regular rate, rhythm, no edema Gastrointestinal: normal inspection Rectal: deferred Genitourinary: no CVA tenderness Musculoskeletal: normal inspection, back normal Neurologic: other - nonverbal Psychiatric: other - nonverbal Skin: other - see nursing skin notes Lymphatic: normal inspection Procedures Critical Care Time Critical Care Time i. I feel this is a highly complex case requiring extensive working including EKG/Rhythm strip, Xray/CT/US, Blood/urine lab work, repeat exams while in ED, and administration of strong opiates/narcotics for pain control, admission to hospital or close patient follow up. Total time: 60 min bedside evaluation and treatment excludes procedures (EKG). Reason for critical care: ESRD, hypotension Possible complications: hypotension, hypertension, NM, shock, arrhythmias, metabolic acidosis, end organ damage, respiratory failure. Interventions: labs, EKG, CXR, antibiotics, fluid bolus, cardiac monitoring Course: Brought in for hypotension at dialysis center. O2 sats in 90s. Placed on oxygen. Chest x-ray shows bilateral infiltrates versus effusion. Dialysis catheter in chest. Lactic okay. Troponin negative. Creatinine 1.5. Patient started on antibiotics. Observed on surveillance monitor. Became hypotensive. Given 5 L cc bolus with BP improved. Consultations: nursing staff, EMS, family Performed by: Dr Hartman Tolerated well condition = serious j. because of unstable vital signs this patient had a condition that could potentially threaten life or limb. I feel this is a critical patient who required my full attention while patient was considered critical. Total Critical Care Time excluding procedures was greater than 60 minutes Medical Decision Making Diagnostic Impression: Primary Impression: Hypotension Qualified Codes: I95.3 - Hypotension of hemodialysis Additional Impressions: ESRD (end stage renal disease) on dialysis Pneumonia Qualified Codes: J18.9 - Pneumonia, unspecified organism ER Course Hospital Course 79-year-old female presents with hypotensive episode at dialysis. Differential diagnoses include: Pneumonia, CHF exacerbation, pneumothorax, fluid overload, sepsis Clinical course Patient placed on stretcher. On surveillance monitor with hypoxia on room air. After initial history and physical, I ordered oxygen. I ordered labs, IV fluids , EKG, chest x-ray, blood cultures, UA. Labs -no leukocytosis, hemoglobin/hematocrit stable, Cr 1.5, trop negative, BNP elevated CXR -bilateral infiltrates, R sided permacath EKG - sinus bradycardia no acute ischemic changes interpreted by me Given antibiotics. After initial assessment BP dropped. Given 500 cc fluid bolus with BP slowly improving Dr Overton is the operations lead. He is aware Case discussed with Dr. Beltran/Enoc and he agreed to the patient to his service for further care and support I feel this is a highly complex case requiring extensive working including EKG/ Rhythm strip, Xray/CT/US, Blood/urine lab work, repeat exams while in ED, and administration of strong opiates/narcotics for pain control, admission to hospital or close patient follow up. Diagnosis - hypotension, ERSD on dialysis, pneumonia Patient admitted to telemetry in serious condition Labs Test 08/02/19 16:47 08/02/19 17:05 White Blood Count 3.1 K/UL (4.8-10.8) Red Blood Count 3.12 M/UL (4.20-5.40) Hemoglobin 9.1 G/DL (12.0-16.0) Hematocrit 28.6 % (37.0-47.0) Mean Corpuscular Volume 92 FL (80-99) Mean Corpuscular Hemoglobin 29.0 PG (27.0-31.0) Mean Corpuscular Hemoglobin Concent 31.6 G/DL (32.0-36.0) Red Cell Distribution Width 20.4 % (11.6-14.8) Platelet Count 50 K/UL (150-450) Mean Platelet Volume 11.7 FL (6.5-10.1) Neutrophils (%) (Auto) % (45.0-75.0) Lymphocytes (%) (Auto) % (20.0-45.0) Monocytes (%) (Auto) % (1.0-10.0) Eosinophils (%) (Auto) % (0.0-3.0) Basophils (%) (Auto) % (0.0-2.0) Sodium Level 140 MMOL/L (136-145) Potassium Level 4.4 MMOL/L (3.5-5.1) Chloride Level 99 MMOL/L (98-107) Carbon Dioxide Level 35 MMOL/L (21-32) Anion Gap 6 mmol/L (5-15) Blood Urea Nitrogen 16 mg/dL (7-18) Creatinine 1.5 MG/DL (0.55-1.30) Estimat Glomerular Filtration Rate 33.5 mL/min (>60) Glucose Level 79 MG/DL (74-106) Lactic Acid Level 0.90 mmol/L (0.4-2.0) Calcium Level 8.5 MG/DL (8.5-10.1) Total Bilirubin 0.2 MG/DL (0.2-1.0) Aspartate Amino Transf (AST/SGOT) 49 U/L (15-37) Alanine Aminotransferase (ALT/SGPT) 17 U/L (12-78) Alkaline Phosphatase 112 U/L (46-116) Total Creatine Kinase 39 U/L (26-308) Creatine Kinase MB 3.9 NG/ML (0.0-3.6) Creatine Kinase MB Relative Index 10.0 Troponin I 0.000 ng/mL (0.000-0.056) Pro-B-Type Natriuretic Peptide 50294 pg/mL (0-125) Total Protein 5.5 G/DL (6.4-8.2) Albumin 1.6 G/DL (3.4-5.0) Globulin 3.9 g/dL Albumin/Globulin Ratio 0.4 (1.0-2.7) Urine Color Pale yellow Urine Appearance Clear Urine pH 8.0 (4.5-8.0) Urine Specific [place] 1.015 (1.005-1.035) Urine Protein 3+ (NEGATIVE) Urine Glucose (UA) Negative (NEGATIVE) Urine Ketones Negative (NEGATIVE) Urine Blood 5+ (NEGATIVE) Urine Nitrite Negative (NEGATIVE) Urine Bilirubin Negative (NEGATIVE) Urine Urobilinogen Normal MG/DL (0.0-1.0) Urine Leukocyte Esterase 3+ (NEGATIVE) Urine RBC 20-30 /HPF (0 - 2) Urine WBC Tntc /HPF (0 - 2) Urine Squamous Epithelial Cells Moderate /LPF (NONE/OCC) Urine Bacteria Many /HPF (NONE) EKG Diagnostic Results Rate: bradycardiac Rhythm: NSR ST Segments: no acute changes ASA given to the pt in ED: No Rhythm Strip Diag. Results EP Interpretation: yes Rhythm: NSR, no PVC's, no ectopy Chest X-Ray Diagnostic Results Chest X-Ray Diagnostic Results : Chest X-Ray Ordered: Yes # of Views/Limited/Complete: 1 View Indication: Shortness of Breath EP Interpretation: Yes Interpretation: no pneumothorax, other - bilateral infiltrates. R chest permacath Impression: Other - pneumonia Electronically Signed by: Electronically signed by Jesus Hartman MD Last Vital Signs Date Time Temp Pulse Resp B/P (MAP) Pulse Ox O2 Delivery O2 Flow Rate FiO2 08/02/19 17:56 98.2 08/02/19 16:20 20 106/70 99 Non-Rebreather 15.0 08/02/19 16:20 55 Status: improved Disposition: ADMITTED INPATIENT Condition: Serious Referrals: Nate Beltran MD (PCP) Jesus Hartman MD Aug 02, 2019 19:12
[2019-08-02 21:00] VITALS: BP_SYST 120; BP_SYST 126; BP_DIAS 54; BP_DIAS 65
[2019-08-02] MEDS: Albuterol/Ipratropium 3ml neb HHN SCH (21:27)
--- NOTE | 2019-08-02 22:15 | History and Physical Report ---
DATE OF ADMISSION: 08/02/2019 REASON FOR ADMISSION: Hypotension. HISTORY OF PRESENT ILLNESS: This is a 79-year-old [place] female with dementia who has end-stage renal disease and is on hemodialysis Thursday, , Thursday. She was at her unit today. During the dialysis session, she became hypotensive. She was brought into the emergency room. On nasal oxygen with improved blood pressure reading; however, subsequently her blood pressure dropped again and she was also bradycardic. The patient is unable to give additional historical data. Records are reviewed as well as prior hospitalizations here. PAST MEDICAL HISTORY: Includes cerebrovascular disease with dementia and agitation, end-stage renal disease, insulin-requiring diabetes mellitus, hypertension with hypertensive heart disease, history of cerebrovascular accident, aphasia, dysphagia, protein-calorie malnutrition, history of MRSA colonization of the respiratory tract, osteoarthritis, osteoporosis, degenerative disk disease, anemia of chronic kidney disease, history of congestive heart failure due to diastolic dysfunction, history of septic arthritis of the shoulder, status post I and D. ALLERGIES: Include vancomycin. SOCIAL HISTORY: Negative for smoking, alcohol, or substance abuse. MEDICATIONS: Prior to admission, reviewed and reconciled. REVIEW OF SYSTEMS: Limited. 25 minutes time spent reviewing prior hospital stays here and her records from the [facility] facility and pertinent data as outlined above. PHYSICAL EXAMINATION: VITAL SIGNS: Afebrile, blood pressure 106/70, pulse 55, respirations 20, oxygen saturation 99% on a non-rebreather mask. HEENT: Temporal wasting. Pale conjunctivae. Mucous membranes moist. NECK: Supple. No accessory muscle use. LUNGS: Coarse breath sounds and rhonchi. Right chest wall PermCath in place. CARDIAC: Regular rhythm and rate. Normal S1, S2. A 1/6 systolic murmur at base. ABDOMEN: Soft, nontender. EXTREMITIES: No edema. DIAGNOSTIC DATA: Chest x-ray with bilateral infiltrates. EKG with sinus rhythm and nonspecific ST-T changes. LABORATORY DATA: White count 3.1, hemoglobin 9.1, platelet count 50,000. BUN 16, creatinine 1.5, potassium 4.4. Pro natriuretic peptide 11,870 and albumin 1.6. IMPRESSION: 1. Early sepsis with shock. 2. Healthcare-associated pneumonia. 3. Severe protein-calorie malnutrition. 4. Thrombocytopenia. 5. End-stage renal disease. 6. Insulin-requiring diabetes mellitus. 7. History of hypertension. 8. Bradycardia. PLAN: 1. Hold antihypertensives and cardiac medications. 2. Hold anti-platelet and anticoagulant drugs. 3. Encourage protein intake. 4. Panculture. 5. Bronchodilators. 6. Nasal oxygen. 7. Antimicrobials. 8. Hemodialysis with limited ultrafiltration based on clinical parameters. 9. Volume challenge for low-range blood pressure. Abel Stubbs M.D. DR: NESS JOB#: [id number] CC:
[2019-08-02 22:52] VITALS: BP 104/65
[2019-08-03] VITALS: BP 108/67
[2019-08-03] MEDS: Cefepime HCl 1 GM in D5W 55 ML IVPB SCH (00:23)
[2019-08-03] MEDS: Albuterol/Ipratropium 3ml neb HHN SCH ×4 (01:47→20:11)
[2019-08-03 04:00] VITALS: BP 95/78
[2019-08-03] MEDS: NovoLOG Insulin Flexpen SUBQ SCH ×4 (06:18→21:00)
[2019-08-03] MEDS ORDERED: NovoLOG Insulin Flexpen SUBQ SCH (06:30)
[2019-08-03 08:00] VITALS: BP 124/52
[2019-08-03] MEDS: Dextrose 10% 1,000 ML IV SCH (08:49)
[2019-08-03 12:00] VITALS: BP 115/46
--- NOTE | 2019-08-03 13:33 | Consultation ---
Consult Note Consult Note I was asked to evaluate patient ju Rodriguez at the request of Dr. Stubbs for Dialysis Management. Patient is very well-known to me from her previous admissions. She was recently discharged from [facility] after having a right shoulder procedure regarding right shoulder joint infection. Patient receives hemodialysis on Saturdays in renal care at [place]. I was called yesterday that the patient is hypotensive on dialysis. Patient was summoned to come to emergency room here at [facility]. After initial evaluation in the emergency room the patient subsequently admitted for further management. I was called to arrange for her inpatient hemodialysis treatment. Physical examination the patient is calm tachycardic blood pressure normal pulse rate 77 irregular and temperature maximum was 100.2. Patient is pale neck is rigid to all direction. Right shoulder scar of the recent surgery for joint infection. Head normocephalic. Neck rigid to a all directions. Heart is mainly regular with irregular beats. Abdomen is soft. Lower extremities no edema. Past Conditions: (1) ESRD (end stage renal disease) (2) Diabetes mellitus (3) Failure to thrive (0-17) severe malnutrition (4) Anemia in CKD (chronic kidney disease) (5) Hypertensive kidney disease (6) h/o Staphylococcus aureus bacteremia - septic shoulder . h/o right hip abcess Assessment/Plan -Early sepsis with shock. -Healthcare-associated pneumonia. -Severe protein-calorie malnutrition. -Thrombocytopenia. - End-stage renal disease. - History of hypertension. - Bradycardia. D 10 for low BS check labs BS control keep BP and BS in check HD as needed Inflammatory markers per orders William Blackwood MD Aug 03, 2019 13:33
--- NOTE | 2019-08-03 14:47 | Diagnostic Imaging Report ---
Indication: Post nasogastric tube placement Technique: Supine view of the abdomen Comparison: 11/23/2018 Findings: There is a nasogastric tube in place, tip of which projects at the level gastric antrum, in good position. Bowel gas pattern is mostly unremarkable. There is a right jugular dialysis catheter, tip projecting deep in the right atrium. The included lung bases demonstrate parenchymal congestion and bilateral pleural effusions. There is mild lumbar scoliotic deformity and degenerative change Impression: Satisfactory nasogastric intubation. This finding was discussed with patient's nurse at the time of interpretation Other findings as noted.
[2019-08-03 16:00] VITALS: BP 134/59
--- NOTE | 2019-08-03 16:30 | Consultation ---
DATE OF CONSULTATION: 08/03/2019 INFECTIOUS DISEASE CONSULTATION CONSULTING PHYSICIAN: Melissa Solares M.D. REFERRING PHYSICIAN: Abel Stubbs M.D. REASON FOR CONSULTATION: Sepsis and right shoulder septic arthritis. HISTORY OF PRESENT ILLNESS: This is a 79-year-old lady with history of dementia, diabetes, renal failure on dialysis, right shoulder septic arthritis, and CVA, who comes in because she was hypotensive in the dialysis unit after dialysis. She was brought in, there was a concern for sepsis and an Infectious Diseases consultation has been obtained for antibiotics. PAST MEDICAL HISTORY: 1. History of diabetes. 2. Hypertension. 3. Renal failure, on dialysis. 4. Dementia. 5. Right shoulder septic arthritis. 6. Osteoarthritis. 7. Osteoporosis. 8. DJD. 9. Congestive heart failure. SOCIAL HISTORY: She does not smoke, drink, or use drugs. FAMILY HISTORY: Unknown. REVIEW OF SYSTEMS: Unable to obtain currently. MEDICATIONS: As an inpatient, she is on Zyprexa, levothyroxine, cefepime, albuterol, ipratropium, and clonidine. ALLERGIES: To vancomycin noted. PHYSICAL EXAMINATION: VITAL SIGNS: Temperature 100.2, T-max of 100.2, pulse 82, respiratory rate 19, and blood pressure 124/52. O2 saturation of 98%. HEENT: Pupils are equally reactive to light and accommodation. Mouth appears clean without thrush. NECK: Supple. No adenopathy. No JVD. CARDIOVASCULAR: Regular rate and rhythm. No murmurs. LUNGS: Clear to auscultation bilaterally. No crackles. No wheezes. ABDOMEN: Soft and nontender. No organomegaly. EXTREMITIES: No cyanosis, no clubbing, no edema. Right shoulder swelling and erythema noted around the wound. Right subclavian catheter noted. LABORATORY AND DIAGNOSTIC DATA: White count 3.1, hemoglobin 9.1, hematocrit 28.6, MCV 92, and platelet count of 50,000 with neutrophils of 84%. Sodium 140, potassium 4.4, chloride 99, bicarb 35, BUN 16, and creatinine 1.5. Glucose 79. Calcium 8.5. Total bilirubin 0.2, AST 49, ALT 17, and alkaline phosphatase 112. CK of 39, CK-MB 3.9. Beta-natriuretic peptide 11,870. Total protein 5.5, albumin 1.6. UA is showing too numerous to count white cells. Urine culture showing gram-negative rods. Blood cultures are pending. Chest x-ray is showing bilateral interstitial infiltrates, large left-sided pleural effusion, and interval destruction of the right humeral head. ASSESSMENT: This is a 79-year-old lady with history of diabetes, hypertension, and renal failure, on dialysis, who comes in with hypotension during dialysis and is found to have, 1. Urinary tract infection with gram-negative rods. 2. We would like to rule out catheter sepsis as a possibility. 3. Right shoulder septic arthritis, status post surgery. 4. Diabetes. 5. Hypertension. PLAN: 1. Continue cefepime. 2. We will start the patient on linezolid. 3. We will follow up cultures and adjust antibiotics accordingly. I would like to thank Dr. Stubbs for this consultation. Melissa Solares M.D. DR: OTTO JOB#: [id number] CC:
[2019-08-03 20:00] VITALS: BP 144/74
[2019-08-03] MEDS ORDERED: Heparin 5000 units/ml inj SUBQ SCH (21:00)
[2019-08-03] MEDS ORDERED: OLANZapine 2.5mg tab ORAL SCH (21:00)
[2019-08-04] VITALS (7 sets, daily range): BP systolic 137–184; BP diastolic 64–87
[2019-08-04] MEDS: Cefepime HCl 1 GM in D5W 55 ML IVPB SCH (00:37)
[2019-08-04] MEDS: Albuterol/Ipratropium 3ml neb HHN SCH ×4 (00:51→21:09)
--- NOTE | 2019-08-04 03:00 | Progress Note ---
DATE: 08/03/2019 INTERNAL MEDICINE AND CARDIOLOGY PROGRESS NOTE SUBJECTIVE: Poor intake, withdrawn, lethargic, on IV antimicrobials, congested with cough, blood pressure on the lower range, and off antihypertensives. OBJECTIVE: GENERAL: NG-tube placed. HEENT: Some bleeding from gums. LUNGS: Bilateral breath sounds. HEART: Regular rhythm and rate. Normal S1 and S2. EXTREMITIES: Right shoulder with deformity. No edema. IMPRESSION: 1. Toxic and metabolic encephalopathy. 2. Sepsis. 3. Healthcare-associated pneumonia. 4. End-stage renal disease, on hemodialysis. 5. Dysphagia. 6. Thrombocytopenia. PLAN: 1. Antimicrobials. 2. Respiratory hygiene. 3. Bronchodilators. 4. Hemodialysis with ultrafiltration. 5. Nutritional support by NG tube. 6. No anti-platelet agents at this time. Abel Stubbs M.D. DR: JASON JOB#: [id number] CC:
[2019-08-04] MEDS: NovoLOG Insulin Flexpen SUBQ SCH (06:10)
[2019-08-04 07:29] LABS: HEMATOCRIT 22.6 % (37.0-47.0); HEMOGLOBIN 7.8 G/DL (12.0-16.0); MEAN CORPUSCULAR VOLUME 90 FL (80-99); PLATELET COUNT 56 K/UL (150-450); WHITE BLOOD COUNT 7.6 K/UL (4.8-10.8)
[2019-08-04 08:17] LABS: ALANINE AMINOTRANSFERASE 9 U/L (12-78); ALBUMIN 1.3 G/DL (3.4-5.0); ALBUMIN/GLOBULIN RATIO 0.3 (1.0-2.7); ALKALINE PHOSPHATASE 117 U/L (46-116); ANION GAP 7 mmol/L (5-15); ASPARTATE AMINO TRANSFERASE 32 U/L (15-37); BILIRUBIN,TOTAL 0.2 MG/DL (0.2-1.0); BLOOD UREA NITROGEN 26 mg/dL (7-18); CARBON DIOXIDE 31 MMOL/L (21-32); CHLORIDE 95 MMOL/L (98-107); CHOLESTEROL 145 MG/DL (< 200); CREATININE 2.3 MG/DL (0.55-1.30); GAMMA GLUTAMYL TRANSPEPTIDASE 8 U/L (5-85); HDL CHOLESTEROL 56 MG/DL (40-60); POTASSIUM 4.5 MMOL/L (3.5-5.1); SODIUM 133 MMOL/L (136-145); TRIGLYCERIDES 274 MG/DL (30-150)
[2019-08-04 08:44] LABS: % IRON SATURATION 104 % (15-50); IRON 100 ug/dL (50-175); TOTAL IRON BINDING CAPACITY 96 ug/dL (250-450)
[2019-08-04 08:48] LABS: FERRITIN > 2000 NG/ML (8-388)
--- NOTE | 2019-08-04 09:01 | Nephrology Progress Note ---
Assessment/Plan Problem List: (1) ESRD (end stage renal disease) on dialysis (2) Malnutrition (3) Anemia in CKD (chronic kidney disease) (4) Hypotension (5) Thrombocytopenia Assessment -Early sepsis with shock. -Healthcare-associated pneumonia. -Severe protein-calorie malnutrition. -Thrombocytopenia. - End-stage renal disease. - History of hypertension. - Bradycardia. - HypoThyroid Plan D 10 for low BS NGT feeding check labs BS control keep BP and BS in check HD as needed Inflammatory markers per orders Subjective ROS Limited/Unobtainable: No Constitutional: Reports: malaise, weakness Objective Objective Last 24 Hour Vital Signs Date Time Temp Pulse Resp B/P (MAP) Pulse Ox O2 Delivery O2 Flow Rate FiO2 08/04/19 07:09 77 20 98 Nasal Cannula 2.0 28 72 20 96 08/04/19 04:00 96.6 73 18 139/74 (95) 91 08/04/19 04:00 72 08/04/19 00:51 79 20 99 Nasal Cannula 2.0 28 76 20 95 08/04/19 00:00 97.2 75 16 137/64 (88) 95 08/04/19 00:00 74 08/03/19 21:00 Nasal Cannula 2.0 08/03/19 20:11 85 20 98 Nasal Cannula 2.0 28 83 20 96 08/03/19 20:00 97.7 79 16 144/74 (97) 99 144/74 (97) 08/03/19 20:00 78 08/03/19 16:00 97.7 77 24 134/59 (84) 100 08/03/19 16:00 90 08/03/19 16:00 2.0 08/03/19 13:18 77 22 99 Nasal Cannula 2.0 28 76 20 98 08/03/19 12:00 73 08/03/19 12:00 3.0 08/03/19 12:00 98.2 70 21 115/46 (69) 100 Intake and Output 08/03/19 08/04/19 19:00 07:00 Intake Total 195 ml Balance 195 ml Intake Tube Feeding 195 ml # Voids 2 # Bowel Movements 1 Laboratory Tests 08/04/19 05:30: White Blood Count 7.6, Red Blood Count 2.50L, Hemoglobin 7.8L, Hematocrit 22.6L , Mean Corpuscular Volume 90, Mean Corpuscular Hemoglobin 31.2H, Mean Corpuscular Hemoglobin Concent 34.5, Red Cell Distribution Width 18.0H, Platelet Count 56L, Mean Platelet Volume 8.0, Neutrophils (%) (Auto) , Lymphocytes (%) (Auto) , Monocytes (%) (Auto) , Eosinophils (%) (Auto) , Basophils (%) (Auto) , Neutrophils % (Manual) [Pending], Lymphocytes % (Manual) [Pending], Platelet Estimate [Pending], Platelet Morphology [Pending], Sodium Level 133L, Potassium Level 4.5, Chloride Level 95L, Carbon Dioxide Level 31, Anion Gap 7, Blood Urea Nitrogen 26H, Creatinine 2.3H, Estimat Glomerular Filtration Rate 20.5, Glucose Level 100, Hemoglobin A1c 5.7, Uric Acid 3.4, Calcium Level 8.0L, Phosphorus Level 4.0, Magnesium Level 1.7L, Iron Level 100, Total Iron Binding Capacity 96L, Percent Iron Saturation 104H, Unsaturated Iron Binding -4L, Ferritin > 2000H, Total Bilirubin 0.2, Gamma Glutamyl Transpeptidase 8, Aspartate Amino Transf (AST/SGOT) 32, Alanine Aminotransferase (ALT/SGPT) 9L, Alkaline Phosphatase 117H, C-Reactive Protein, Quantitative 14.4H, Pro-B-Type Natriuretic Peptide [id number], Total Protein 5.2L, Albumin 1.3L, Globulin 3.9, Albumin/Globulin Ratio 0.3L, Triglycerides Level 274H, Cholesterol Level 145, LDL Cholesterol 58, HDL Cholesterol 56, Cholesterol /HDL Ratio 2.6L, Vitamin B12 Level 1333H, Folate 12.5, Thyroid Stimulating Hormone (TSH) 15.341H Height (Feet): 5 Height (Inches): 4.00 Weight (Pounds): 93 General Appearance: no apparent distress EENT: other - NGT+ Cardiovascular: bradycardia Respiratory/Chest: decreased breath sounds Abdomen: soft Extremities: other - right shoulder scar William Blackwood MD Aug 04, 2019 09:01
--- NOTE | 2019-08-04 10:07 | Infectious Diseases Prog Note ---
Assessment/Plan Assessment/Plan A; 1. Urinary tract infection with E. coli ESBL 2. Gram negative sepsis , likely catheter related sepsis. 3. Right shoulder septic arthritis, status post surgery. 4. Diabetes. 5. Hypertension. 6. Anemia PLAN: 1. Change cefepime to Meropnem 2. We will Continue linezolid. 3. We will follow up cultures and adjust antibiotics accordingly. 4. Consider PermCath change Subjective ROS Limited/Unobtainable: Yes Constitutional: Denies: fever Neurologic: Reports: confusion, other - on restraint Allergies: Coded Allergies: VANCOMYCIN (Unverified Allergy, Unknown, 08/02/19) Objective Vital Signs Last 24 Hour Vital Signs Date Time Temp Pulse Resp B/P (MAP) Pulse Ox O2 Delivery O2 Flow Rate FiO2 08/04/19 07:09 77 20 98 Nasal Cannula 2.0 28 72 20 96 08/04/19 04:00 96.6 73 18 139/74 (95) 91 08/04/19 04:00 72 08/04/19 00:51 79 20 99 Nasal Cannula 2.0 28 76 20 95 08/04/19 00:00 97.2 75 16 137/64 (88) 95 08/04/19 00:00 74 08/03/19 21:00 Nasal Cannula 2.0 08/03/19 20:11 85 20 98 Nasal Cannula 2.0 28 83 20 96 08/03/19 20:00 97.7 79 16 144/74 (97) 99 144/74 (97) 08/03/19 20:00 78 08/03/19 16:00 97.7 77 24 134/59 (84) 100 08/03/19 16:00 90 08/03/19 16:00 2.0 08/03/19 13:18 77 22 99 Nasal Cannula 2.0 28 76 20 98 08/03/19 12:00 73 08/03/19 12:00 3.0 08/03/19 12:00 98.2 70 21 115/46 (69) 100 Height (Feet): 5 Height (Inches): 4.00 Weight (Pounds): 93 General Appearance: cachetic HEENT: mucous membranes moist Respiratory/Chest: rhonchi - bilaterally, other - Oxygen by nasal cannula Cardiovascular: normal rate, other - R Permacath Abdomen: soft, non tender, other - NG tube feeding Extremities: other - R arm edema Skin: ulcers Neurologic/Psychiatric: unresponsiveness Microbiology Date/Time Source Procedure Growth Status 08/02/19 16:47 Blood Blood Culture - Preliminary Gram Negative Bacillus 1 Resulted 08/02/19 16:30 Blood Blood Culture - Preliminary Gram Negative Bacillus 1 Resulted 08/02/19 17:05 Urine,Clean Catch Urine Culture - Final Escherichia Coli - Esbl Complete 08/02/19 19:30 Rectum Received Laboratory Tests Test 08/04/19 05:30 White Blood Count 7.6 K/UL (4.8-10.8) Red Blood Count 2.50 M/UL (4.20-5.40) L Hemoglobin 7.8 G/DL (12.0-16.0) L Hematocrit 22.6 % (37.0-47.0) L Mean Corpuscular Volume 90 FL (80-99) Mean Corpuscular Hemoglobin 31.2 PG (27.0-31.0) H Mean Corpuscular Hemoglobin Concent 34.5 G/DL (32.0-36.0) Red Cell Distribution Width 18.0 % (11.6-14.8) H Platelet Count 56 K/UL (150-450) L Mean Platelet Volume 8.0 FL (6.5-10.1) Neutrophils (%) (Auto) % (45.0-75.0) Lymphocytes (%) (Auto) % (20.0-45.0) Monocytes (%) (Auto) % (1.0-10.0) Eosinophils (%) (Auto) % (0.0-3.0) Basophils (%) (Auto) % (0.0-2.0) Neutrophils % (Manual) Pending Lymphocytes % (Manual) Pending Platelet Estimate Pending Platelet Morphology Pending Sodium Level 133 MMOL/L (136-145) L Potassium Level 4.5 MMOL/L (3.5-5.1) Chloride Level 95 MMOL/L (98-107) L Carbon Dioxide Level 31 MMOL/L (21-32) Anion Gap 7 mmol/L (5-15) Blood Urea Nitrogen 26 mg/dL (7-18) H Creatinine 2.3 MG/DL (0.55-1.30) H Estimat Glomerular Filtration Rate 20.5 mL/min (>60) Glucose Level 100 MG/DL (74-106) Hemoglobin A1c 5.7 % (4.3-6.0) Uric Acid 3.4 MG/DL (2.6-7.2) Calcium Level 8.0 MG/DL (8.5-10.1) L Phosphorus Level 4.0 MG/DL (2.5-4.9) Magnesium Level 1.7 MG/DL (1.8-2.4) L Iron Level 100 ug/dL (50-175) Total Iron Binding Capacity 96 ug/dL (250-450) L Percent Iron Saturation 104 % (15-50) H Unsaturated Iron Binding -4 ug/dL (112-346) L Ferritin > 2000 NG/ML (8-388) H Total Bilirubin 0.2 MG/DL (0.2-1.0) Gamma Glutamyl Transpeptidase 8 U/L (5-85) Aspartate Amino Transf (AST/SGOT) 32 U/L (15-37) Alanine Aminotransferase (ALT/SGPT) 9 U/L (12-78) L Alkaline Phosphatase 117 U/L (46-116) H C-Reactive Protein, Quantitative 14.4 mg/dL (0.00-0.90) H Pro-B-Type Natriuretic Peptide 98692 pg/mL (0-125) H Total Protein 5.2 G/DL (6.4-8.2) L Albumin 1.3 G/DL (3.4-5.0) L Globulin 3.9 g/dL Albumin/Globulin Ratio 0.3 (1.0-2.7) L Triglycerides Level 274 MG/DL (30-150) H Cholesterol Level 145 MG/DL (< 200) LDL Cholesterol 58 mg/dL (<100) HDL Cholesterol 56 MG/DL (40-60) Cholesterol/HDL Ratio 2.6 (3.3-4.4) L Vitamin B12 Level 1333 PG/ML (193-986) H Folate 12.5 NG/ML (8.6-58.9) Thyroid Stimulating Hormone (TSH) 15.341 uiU/mL (0.358-3.740) Current Medications Medications (Trade) Dose Ordered Sig/Javier Route PRN Reason Start Time Stop Time Status Last Admin Dose Admin Albuterol/ Ipratropium (Albuterol/ Ipratropium) 3 ml Q6HRT HHN 08/02/19 21:15 08/07/19 21:14 08/04/19 07:09 Cefepime HCl 1 gm/ Dextrose 55 ml @ 110 mls/hr Q24H IVPB 08/02/19 23:00 08/09/19 22:59 08/04/19 00:37 Clonidine HCl (Catapres Tab) 0.1 mg Q4H PRN ORAL SBP above 150 08/02/19 21:15 09/01/19 21:14 Dextrose 1,000 ml @ 30 mls/hr Q24H IV 08/03/19 09:30 09/02/19 09:29 08/03/19 08:49 Dextrose (Dextrose 50%) 25 ml Q30M PRN IV Hypoglycemia 08/02/19 21:15 09/01/19 21:14 Dextrose (Dextrose 50%) 50 ml Q30M PRN IV Hypoglycemia 08/02/19 21:15 09/01/19 21:14 08/03/19 11:58 Levothyroxine Sodium (Synthroid) 50 mcg DAILY@0630 ORAL 08/03/19 06:30 09/02/19 06:29 08/04/19 06:09 Linezolid 300 ml @ 300 mls/hr Q12H IVPB 08/03/19 11:30 08/10/19 11:29 08/04/19 00:40 Olanzapine (ZyPREXA) 2.5 mg BEDTIME ORAL 08/03/19 21:00 09/02/19 20:59 08/03/19 20:47 Sevelamer Carbonate (Renvela) 800 mg THREE TIMES A DAY ORAL 08/03/19 09:00 09/02/19 08:59 08/04/19 08:32 Warren Parks MD Aug 04, 2019 10:07
[2019-08-04] MEDS: Dextrose 10% 1,000 ML IV SCH (10:21)
[2019-08-04] MEDS ORDERED: Meropenem 500 MG in NS 55 ML IVPB SCH (12:00)
[2019-08-04] MEDS: Meropenem 500 MG in NS 55 ML IVPB SCH (20:34)
[2019-08-04] MEDS: OLANZapine 2.5mg tab ORAL SCH (20:34)
[2019-08-05] VITALS (7 sets, daily range): BP systolic 115–178; BP diastolic 53–97
--- NOTE | 2019-08-05 01:00 | Progress Note ---
DATE: 08/04/2019 CARDIOLOGY PROGRESS NOTE SUBJECTIVE: The patient with multi-drug resistant urinary tract infection. As such, antibiotics have been adjusted. OBJECTIVE: VITAL SIGNS: Blood pressure 139/74, pulse 73, respiratory rate 18. Monitored rhythm sinus with atrial ectopics. LUNGS: Diminished breath sounds. PermCath site with no drainage. HEART: Regular rhythm and rate. Normal S1, S2 with a fourth heart sound. ABDOMEN: Soft. EXTREMITIES: Right shoulder deformity. No edema. LABORATORY DATA: White count 7.6, hemoglobin 7.8. Potassium 4.5, BUN 26, creatinine 2.3. Magnesium 1.7. Pro-natriuretic peptide 13,000. TSH 15. LDL cholesterol 58. IMPRESSION: 1. Sepsis with multi-drug resistant urinary tract infection. 2. End-stage renal disease. 3. Right shoulder destruction due to recurring infection. 4. Hypomagnesemia. 5. Acute on chronic diastolic congestive heart failure. 6. Severe protein-calorie malnutrition. 7. Hypertriglyceridemia. 8. Hypothyroidism. 9. Thrombocytopenia. PLAN: 1. Antimicrobials. 2. Hemodialysis with ultrafiltration. 3. Magnesium replacement. 4. Increase thyroid supplements. 5. Nutritional support. 6. Bleeding precautions. 7. Discontinue telemetry. Abel Stubbs M.D. DR: BOOM JOB#: [id number] CC: ISAI
[2019-08-05] MEDS: Albuterol/Ipratropium 3ml neb HHN SCH ×4 (01:41→19:55)
[2019-08-05] MEDS: Meropenem 500 MG in NS 55 ML IVPB SCH ×2 (08:40→21:34)
[2019-08-05 10:13] LABS: ANION GAP 11 mmol/L (5-15); BLOOD UREA NITROGEN 35 mg/dL (7-18); CALCIUM 8.2 MG/DL (8.5-10.1); CARBON DIOXIDE 28 MMOL/L (21-32); CHLORIDE 94 MMOL/L (98-107); CREATININE 2.8 MG/DL (0.55-1.30); POTASSIUM 4.1 MMOL/L (3.5-5.1); SODIUM 133 MMOL/L (136-145)
--- NOTE | 2019-08-05 10:19 | Infectious Diseases Prog Note ---
"Assessment/Plan Assessment/Plan antibiotics : linezolid, meropenem A 1. klebsiella sepsis 2. e.coli UTI 3. right shoulder septic arthritis with staph aureus 4. renal failure 5. thrombocytopenia 6. diabetes mellitus 7. hypertension P 1. continue meropenem 2. d/c linezolid 3. consider removal of catheter 4. CT abdomen | pelvis 5. will follow up cultures Subjective ROS Limited/Unobtainable: Yes Allergies: Coded Allergies: VANCOMYCIN (Unverified Allergy, Unknown, 08/02/19) Objective Vital Signs Last 24 Hour Vital Signs Date Time Temp Pulse Resp B/P (MAP) Pulse Ox O2 Delivery O2 Flow Rate FiO2 08/05/19 08:46 98 Nasal Cannula 2.0 28 08/05/19 08:39 178/73 08/05/19 08:30 85 18 100 Nasal Cannula 2.0 28 82 19 97 08/05/19 04:00 98.0 65 17 133/83 (100) 97 08/05/19 01:41 81 17 100 Nasal Cannula 2.0 28 79 18 97 08/05/19 00:00 97.3 62 21 122/97 (105) 100 08/04/19 21:55 184/81 08/04/19 21:09 74 20 100 Nasal Cannula 2.0 28 77 20 98 08/04/19 20:08 Nasal Cannula 2.0 08/04/19 20:00 97.3 65 20 184/81 (115) 98 08/04/19 19:25 97 Nasal Cannula 2.0 28 08/04/19 18:00 97.7 65 18 137/65 (89) 99 08/04/19 16:00 97.7 65 18 137/65 (89) 99 08/04/19 12:58 67 20 100 Nasal Cannula 2.0 28 70 20 98 08/04/19 12:00 70 08/04/19 12:00 97.9 76 18 157/83 (107) 91 Height (Feet): 5 Height (Inches): 4.00 Weight (Pounds): 93 Respiratory/Chest: lungs clear Cardiovascular: normal rate, regular rhythm, no gallop/murmur Abdomen: soft, non tender Extremities: no edema, other - right shoulder wound clean, right subclavian catheter Microbiology Date/Time Source Procedure Growth Status 08/02/19 16:47 Blood Blood Culture - Final Klebsiella Pneumoniae Esbl Complete 2/18/20 16:30 Blood Blood Culture - Final Klebsiella Pneumoniae Esbl Complete 08/02/19 19:30 Nasal Nares MRSA Culture - Final NO METHICILLIN RESISTANT STAPH AUREUS... Complete 08/02/19 17:05 Urine,Clean Catch Urine Culture - Final Escherichia Coli - Esbl Complete 08/02/19 19:30 Rectum - Final NO CARBAPENEM-RESISTANT ENTEROBACTERI... Complete 08/02/19 19:30 Rectum VRE Culture - Final NO VANCOMYCIN RESISTANT ENTEROCOCCUS ... Complete Laboratory Tests Test 08/05/19 09:35 White Blood Count Pending Red Blood Count Pending Hemoglobin Pending Hematocrit Pending Mean Corpuscular Volume Pending Mean Corpuscular Hemoglobin Pending Mean Corpuscular Hemoglobin Concent Pending Red Cell Distribution Width Pending Platelet Count Pending Mean Platelet Volume Pending Neutrophils (%) (Auto) Pending Lymphocytes (%) (Auto) Pending Monocytes (%) (Auto) Pending Eosinophils (%) (Auto) Pending Basophils (%) (Auto) Pending Sodium Level Pending Potassium Level Pending Chloride Level Pending Carbon Dioxide Level Pending Blood Urea Nitrogen Pending Creatinine Pending Estimat Glomerular Filtration Rate Pending Glucose Level Pending Calcium Level Pending Phosphorus Level Pending Total Bilirubin Pending Aspartate Amino Transf (AST/SGOT) Pending Alanine Aminotransferase (ALT/SGPT) Pending Alkaline Phosphatase Pending C-Reactive Protein, Quantitative Pending Pro-B-Type Natriuretic Peptide Pending Total Protein Pending Albumin Pending Globulin Pending Current Medications Medications (Trade) Dose Ordered Sig/Javier Route PRN Reason Start Time Stop Time Status Last Admin Dose Admin Albuterol/ Ipratropium (Albuterol/ Ipratropium) 3 ml Q6HRT HHN 08/04/19 19:00 08/07/19 21:14 08/05/19 08:33 Clonidine HCl (Catapres Tab) 0.1 mg Q4H PRN ORAL SBP above 150 08/04/19 18:00 09/01/19 17:59 08/05/19 08:39 Dextrose (Dextrose 50%) 25 ml Q30M PRN IV Hypoglycemia 08/04/19 17:45 09/01/19 21:14 Dextrose (Dextrose 50%) 50 ml Q30M PRN IV Hypoglycemia 08/04/19 17:45 09/01/19 21:14 Levothyroxine Sodium (Synthroid) 100 mcg DAILY@0630 ORAL 08/05/19 06:30 09/04/19 06:29 08/05/19 06:13 Linezolid 300 ml @ 300 mls/hr Q12H IVPB 08/04/19 23:30 08/10/19 11:29 08/04/19 23:40 Meropenem 500 mg/ Sodium Chloride 55 ml @ 110 mls/hr EVERY 12 HOURS IVPB 08/04/19 21:00 08/09/19 11:59 08/05/19 08:40 Olanzapine (ZyPREXA) 2.5 mg BEDTIME ORAL 08/04/19 21:00 09/02/19 20:59 08/04/19 20:34 Sevelamer Carbonate (Renvela) 800 mg THREE TIMES A DAY ORAL 08/04/19 18:00 09/02/19 08:59 08/05/19 08:38 Melissa Solares MD Aug 05, 2019 10:19"
[2019-08-05 10:23] LABS: ALANINE AMINOTRANSFERASE 14 U/L (12-78); ALBUMIN 1.1 G/DL (3.4-5.0); ALBUMIN/GLOBULIN RATIO 0.3 (1.0-2.7); ALKALINE PHOSPHATASE 129 U/L (46-116); ASPARTATE AMINO TRANSFERASE 27 U/L (15-37); BILIRUBIN,TOTAL 0.2 MG/DL (0.2-1.0); PHOSPHORUS 3.7 MG/DL (2.5-4.9)
[2019-08-05 10:28] LABS: HEMATOCRIT 20.6 % (37.0-47.0); HEMOGLOBIN 7.1 G/DL (12.0-16.0); MEAN CORPUSCULAR VOLUME 89 FL (80-99); PLATELET COUNT 34 K/UL (150-450); RED BLOOD COUNT 2.31 M/UL (4.20-5.40); WHITE BLOOD COUNT 6.1 K/UL (4.8-10.8)
[2019-08-05] MEDS ORDERED: Omnipaque-300 100ml vial INJ PRN (10:30)
--- NOTE | 2019-08-05 11:55 | Diagnostic Imaging Report ---
. Indication: Post nasogastric tube placement Technique: Supine view of the abdomen Comparison: none Findings: There is a nasogastric tube in place, tip projected at the level gastric antrum. Tip of a dialysis catheter is seen deep in the right atrium. Bowel gas pattern is unremarkable. There are degenerative changes of the lumbar spine and mild thoracolumbar scoliotic deformity. There is evidence of a left pleural effusion Impression: Satisfactory nasogastric intubation. Patient's nurse notified at the time of interpretation Other findings as noted
--- NOTE | 2019-08-05 14:39 | Nephrology Progress Note ---
Assessment/Plan Problem List: (1) ESRD (end stage renal disease) on dialysis (2) Malnutrition (3) Anemia in CKD (chronic kidney disease) (4) Hypotension (5) Thrombocytopenia Assessment -Early sepsis with shock. -Healthcare-associated pneumonia. -Severe protein-calorie malnutrition. -Thrombocytopenia. - End-stage renal disease. - History of hypertension. - Bradycardia. - HypoThyroid Plan NGT feeding check labs BS control keep BP and BS in check HD as needed Inflammatory markers per orders Subjective ROS Limited/Unobtainable: No Constitutional: Reports: malaise, weakness Objective Objective Last 24 Hour Vital Signs Date Time Temp Pulse Resp B/P (MAP) Pulse Ox O2 Delivery O2 Flow Rate FiO2 08/05/19 13:09 82 18 100 Nasal Cannula 2.0 28 75 16 98 08/05/19 08:46 98 Nasal Cannula 2.0 28 08/05/19 08:39 178/73 08/05/19 08:30 85 18 100 Nasal Cannula 2.0 28 82 19 97 08/05/19 08:00 96.7 60 18 178/73 (108) 100 08/05/19 04:00 98.0 65 17 133/83 (100) 97 08/05/19 01:41 81 17 100 Nasal Cannula 2.0 28 79 18 97 08/05/19 00:00 97.3 62 21 122/97 (105) 100 08/04/19 21:55 184/81 08/04/19 21:09 74 20 100 Nasal Cannula 2.0 28 77 20 98 08/04/19 20:08 Nasal Cannula 2.0 08/04/19 20:00 97.3 65 20 184/81 (115) 98 08/04/19 19:25 97 Nasal Cannula 2.0 28 08/04/19 18:00 97.7 65 18 137/65 (89) 99 08/04/19 16:00 97.7 65 18 137/65 (89) 99 Intake and Output 08/04/19 08/05/19 19:00 07:00 Intake Total 70 ml 550 ml Balance 70 ml 550 ml Intake Free Water 200 ml Tube Feeding 70 ml 350 ml Laboratory Tests 08/05/19 09:35: White Blood Count 6.1, Red Blood Count 2.31L, Hemoglobin 7.1L, Hematocrit 20.6L , Mean Corpuscular Volume 89, Mean Corpuscular Hemoglobin 30.9, Mean Corpuscular Hemoglobin Concent 34.7, Red Cell Distribution Width 18.0H, Platelet Count 34L, Mean Platelet Volume 8.8, Neutrophils (%) (Auto) , Lymphocytes (%) (Auto) , Monocytes (%) (Auto) , Eosinophils (%) (Auto) , Basophils (%) (Auto) , Differential Total Cells Counted 100, Neutrophils % ( Manual) 69, Lymphocytes % (Manual) 26, Monocytes % (Manual) 4, Eosinophils % ( Manual) 1, Basophils % (Manual) 0, Band Neutrophils 0, Platelet Estimate DecreasedL, Platelet Morphology Normal, Hypochromasia 1+, Anisocytosis 1+, Sodium Level 133L, Potassium Level 4.1, Chloride Level 94L, Carbon Dioxide Level 28, Anion Gap 11, Blood Urea Nitrogen 35H, Creatinine 2.8H, Estimat Glomerular Filtration Rate 16.3, Glucose Level 101, Calcium Level 8.2L, Phosphorus Level 3.7, Total Bilirubin 0.2, Aspartate Amino Transf (AST/SGOT) 27 , Alanine Aminotransferase (ALT/SGPT) 14, Alkaline Phosphatase 129H, C-Reactive Protein, Quantitative 11.3H, Pro-B-Type Natriuretic Peptide 62138A, Total Protein 4.9L, Albumin 1.1L, Globulin 3.8, Albumin/Globulin Ratio 0.3L Height (Feet): 5 Height (Inches): 4.00 Weight (Pounds): 93 General Appearance: no apparent distress Cardiovascular: normal rate Respiratory/Chest: decreased breath sounds Abdomen: distended William Blackwood MD Aug 05, 2019 14:38
[2019-08-05] MEDS: Lisinopril 2.5mg tab ORAL SCH (14:45)
--- NOTE | 2019-08-05 15:26 | Diagnostic Imaging Report ---
Indication: Shortness of breath Technique: One view of the chest Comparison: 08/02/2019 Findings: Large left pleural effusion is demonstrated, appearing slightly increased from prior exam. Interstitial and airspace edema in the perihilar regions and lung bases appears increased. Right pleural space appears to be clear. The heart appears to be slightly enlarged. Right jugular tunneled dialysis catheter again demonstrated. Impression: Increasing left pleural effusion. Increasing bilateral interstitial and airspace infiltrates versus edema, over 3 days
[2019-08-05] MEDS ORDERED: ZYVOX600 MG ORAL (17:54)
[2019-08-05] MEDS ORDERED: DOXAZOSIN MESYLA2 MG ORAL (17:54)
[2019-08-05] MEDS ORDERED: ISOSORBIDE MONO60 M1 PO (17:54)
[2019-08-05] MEDS ORDERED: HYDRALAZINE HC100 MG ORAL (17:54)
[2019-08-05] MEDS ORDERED: CARVEDILOL6.25 MG ORAL (17:54)
[2019-08-05] MEDS ORDERED: RENVELA0.8 GM ORAL (17:59)
[2019-08-05] MEDS ORDERED: PROTONIX40 M2 PO (17:59)
[2019-08-05] MEDS ORDERED: HYDROCODON-ACE1 EA13 ORAL (18:03)
[2019-08-05] MEDS ORDERED: HYDRALAZINE HCL25 M1 ORAL (18:03)
[2019-08-05] MEDS ORDERED: HYDROXYZINE HCL10 M1 PO (18:03)
--- NOTE | 2019-08-05 18:34 | Diagnostic Imaging Report ---
EXAM: CT Abdomen and Pelvis With Intravenous Contrast CLINICAL HISTORY: ABSCESS TECHNIQUE: Axial computed tomography images of the abdomen and pelvis with intravenous contrast. CTDI is 3.5 mGy and DLP is 195.2 mGy-cm. One or more of the following dose reduction techniques were used: automated exposure control, adjustment of the mA and/or kV according to patient size, use of iterative reconstruction technique. COMPARISON: No relevant prior studies available. FINDINGS: Lung bases: Moderate pleural effusions. Passive atelectasis at the lung bases. Groundglass opacities in the middle lobe and lingula. ABDOMEN: Liver: Unremarkable. No mass. Gallbladder and bile ducts: Unremarkable. No calcified stones. No ductal dilation. Pancreas: Unremarkable. No mass. No ductal dilation. Spleen: Unremarkable. No splenomegaly. Adrenals: Unremarkable. No mass. Kidneys and ureters: Atrophic kidneys. No hydronephrosis. Stomach and bowel: Unremarkable. PELVIS: Appendix: No findings to suggest acute appendicitis. Bladder: Unremarkable. No mass. Reproductive: Unremarkable as visualized. ABDOMEN and PELVIS: Bones/joints: Advanced degenerative changes most pronounced at L2-3 where there are endplate erosive changes. No paraspinous inflammatory changes suggesting against acute discitis osteomyelitis. No dislocation. Soft tissues: Extensive anasarca, ascites, and mesenteric edema markedly limits evaluation. No grossly evident abscess. Vasculature: Unremarkable. No abdominal aortic aneurysm. Lymph nodes: Unremarkable. No enlarged lymph nodes. IMPRESSION: 1. Extensive anasarca, ascites, and mesenteric edema markedly limits evaluation. No grossly evident abscess. 2. Moderate pleural effusions. Passive atelectasis at the lung bases. Groundglass opacities in the middle lobe and lingula, likely alveolar edema, less likely infection. 3. Atrophic kidneys. 4. Advanced degenerative changes most pronounced at L2-3 where there are endplate erosive changes. No paraspinous inflammatory changes suggesting against acute discitis osteomyelitis. This could be further evaluated by MRI if there is clinical concern.
[2019-08-05] MEDS: OLANZapine 2.5mg tab ORAL SCH (21:00)
[2019-08-06] MEDS: Albuterol/Ipratropium 3ml neb HHN SCH ×4 (01:14→19:32)
--- NOTE | 2019-08-06 01:15 | Progress Note ---
DATE: 08/05/2019 CARDIOLOGY PROGRESS NOTE SUBJECTIVE: Blood pressure remains labile. No chest pain or shortness of breath. Monitored rhythm was sinus prior to transfer. OBJECTIVE: GENERAL: Deformity of right shoulder. LUNGS: Bilateral breath sounds with rhonchi. CARDIAC: Regular rhythm and rate. Normal S1 and S2. ABDOMEN: Soft. EXTREMITIES: No edema. IMPRESSION: 1. Sepsis. 2. Recovered shock. 3. Healthcare associated pneumonia. 4. Status post right shoulder infection and surgery. 5. Anemia of chronic kidney disease. 6. Hypertensive heart disease. 7. Chronic diastolic congestive heart failure. 8. End-stage renal disease, on hemodialysis. 9. Thrombocytopenia. PLAN: 1. Antimicrobials. 2. Respiratory hygiene. 3. Titrate antihypertensives. 4. Avoid anti-platelet drugs. 5. Monitor for bleeding per complications and worsening thrombocytopenia. Abel Stubbs M.D. DR: CHANDU JOB#: [id number] CC:
[2019-08-06 04:00] VITALS: BP 160/83
--- NOTE | 2019-08-06 07:41 | General Progress Note ---
Assessment/Plan Problem List: (1) Failure to thrive (0-17) ICD Codes: R62.51 - Failure to thrive (0-17) SNOMED: 779370268 (2) Hypertensive kidney disease ICD Codes: I12.9 - Hypertensive chronic kidney disease with stage 1 through stage 4 chronic kidney disease, or unspecified chronic kidney disease SNOMED: 91814011 (3) Pneumonia ICD Codes: J18.9 - Pneumonia, unspecified organism SNOMED: 733100912 Qualifiers: Qualified Codes: J18.9 - Pneumonia, unspecified organism (4) ESRD (end stage renal disease) ICD Codes: N18.6 - End stage renal disease SNOMED: 39443981 (5) Septic arthritis ICD Codes: M00.9 - Pyogenic arthritis, unspecified SNOMED: 543571761 (6) Thrombocytopenia ICD Codes: D69.6 - Thrombocytopenia, unspecified SNOMED: 144528945 (7) Hypotension ICD Codes: I95.9 - Hypotension, unspecified SNOMED: 03634973 Qualifiers: Qualified Codes: I95.3 - Hypotension of hemodialysis (8) Malnutrition ICD Codes: E46 - Unspecified protein-calorie malnutrition SNOMED: 97227888 Status: not improved, unchanged Assessment/Plan: dc zyprexa hd iv abx ct brain resume feeds later today Subjective ROS Limited/Unobtainable: No Constitutional: Reports: malaise, weakness HEENT: Reports: no symptoms Cardiovascular: Reports: no symptoms Respiratory: Reports: no symptoms Gastrointestinal/Abdominal: Reports: difficulty swallowing Genitourinary: Reports: no symptoms Neurologic/Psychiatric: Reports: pre-existing deficit Endocrine: Reports: no symptoms Hematologic/Lymphatic: Reports: no symptoms Allergies: Coded Allergies: VANCOMYCIN (Unverified Allergy, Unknown, 08/02/19) All Systems: reviewed and negative except above Subjective no events. less congested. feeds on hold. still poorly responsive. low h/h noted. no reports of bleeding. on abx Objective Last 24 Hour Vital Signs Date Time Temp Pulse Resp B/P (MAP) Pulse Ox O2 Delivery O2 Flow Rate FiO2 08/06/19 05:58 160/83 08/06/19 04:00 98.2 55 22 160/83 (108) 95 08/06/19 03:38 Nasal Cannula 2.0 08/06/19 01:16 56 16 100 Nasal Cannula 2.0 28 52 16 97 2/21/20 23:49 98.0 63 22 140/80 (100) 94 08/05/19 20:54 Nasal Cannula 2.0 08/05/19 20:00 98.0 56 22 142/58 (86) 95 08/05/19 19:57 62 18 100 Nasal Cannula 2.0 28 58 16 96 08/05/19 19:56 96 Nasal Cannula 2.0 28 08/05/19 16:00 98.4 57 18 115/53 (73) 92 08/05/19 13:09 82 18 100 Nasal Cannula 2.0 28 75 16 98 08/05/19 12:00 97.8 57 18 115/53 (73) 95 08/05/19 09:00 Nasal Cannula 2.0 08/05/19 08:46 98 Nasal Cannula 2.0 28 08/05/19 08:39 178/73 08/05/19 08:30 85 18 100 Nasal Cannula 2.0 28 82 19 97 08/05/19 08:00 96.7 60 18 178/73 (108) 100 Intake and Output 08/05/19 08/06/19 19:00 07:00 Intake Total 105 ml Balance 105 ml Intake Free Water 70 ml Tube Feeding 35 ml # Voids 1 # Bowel Movements 2 1 Laboratory Tests 08/05/19 09:35: White Blood Count 6.1, Red Blood Count 2.31L, Hemoglobin 7.1L, Hematocrit 20.6L , Mean Corpuscular Volume 89, Mean Corpuscular Hemoglobin 30.9, Mean Corpuscular Hemoglobin Concent 34.7, Red Cell Distribution Width 18.0H, Platelet Count 34L, Mean Platelet Volume 8.8, Neutrophils (%) (Auto) , Lymphocytes (%) (Auto) , Monocytes (%) (Auto) , Eosinophils (%) (Auto) , Basophils (%) (Auto) , Differential Total Cells Counted 100, Neutrophils % ( Manual) 69, Lymphocytes % (Manual) 26, Monocytes % (Manual) 4, Eosinophils % ( Manual) 1, Basophils % (Manual) 0, Band Neutrophils 0, Platelet Estimate DecreasedL, Platelet Morphology Normal, Hypochromasia 1+, Anisocytosis 1+, Sodium Level 133L, Potassium Level 4.1, Chloride Level 94L, Carbon Dioxide Level 28, Anion Gap 11, Blood Urea Nitrogen 35H, Creatinine 2.8H, Estimat Glomerular Filtration Rate 16.3, Glucose Level 101, Calcium Level 8.2L, Phosphorus Level 3.7, Total Bilirubin 0.2, Aspartate Amino Transf (AST/SGOT) 27 , Alanine Aminotransferase (ALT/SGPT) 14, Alkaline Phosphatase 129H, C-Reactive Protein, Quantitative 11.3H, Pro-B-Type Natriuretic Peptide 46659I, Total Protein 4.9L, Albumin 1.1L, Globulin 3.8, Albumin/Globulin Ratio 0.3L Height (Feet): 5 Height (Inches): 4.00 Weight (Pounds): 99 General Appearance: WD/WN, lethargic Neck: supple Cardiovascular: regular rhythm Respiratory/Chest: lungs clear, normal breath sounds, no respiratory distress Abdomen: normal bowel sounds, non tender, soft, no organomegaly Edema: no edema noted Arm (L), no edema noted Arm (R), no edema noted Leg (L), no edema noted Leg (R), no edema noted Pedal (L), no edema noted Pedal (R), no edema noted Generalized Neurologic: disoriented, unresponsive, aphasia Nate Beltran MD Aug 06, 2019 07:41
--- NOTE | 2019-08-06 07:43 | General Progress Note ---
Assessment/Plan Problem List: (1) Failure to thrive (0-17) ICD Codes: R62.51 - Failure to thrive (0-17) SNOMED: 290814206 (2) Hypertensive kidney disease ICD Codes: I12.9 - Hypertensive chronic kidney disease with stage 1 through stage 4 chronic kidney disease, or unspecified chronic kidney disease SNOMED: 04993272 (3) Pneumonia ICD Codes: J18.9 - Pneumonia, unspecified organism SNOMED: 565995181 Qualifiers: Qualified Codes: J18.9 - Pneumonia, unspecified organism (4) ESRD (end stage renal disease) ICD Codes: N18.6 - End stage renal disease SNOMED: 38004260 (5) Septic arthritis ICD Codes: M00.9 - Pyogenic arthritis, unspecified SNOMED: 212374213 (6) Thrombocytopenia ICD Codes: D69.6 - Thrombocytopenia, unspecified SNOMED: 529682942 (7) Hypotension ICD Codes: I95.9 - Hypotension, unspecified SNOMED: 68170537 Qualifiers: Qualified Codes: I95.3 - Hypotension of hemodialysis (8) Malnutrition ICD Codes: E46 - Unspecified protein-calorie malnutrition SNOMED: 53498180 Status: not improved, unchanged Assessment/Plan: feeds held check cxr resp rx suctioning HD per renal iv abx per id Subjective Date patient seen: Aug 05, 2019 ROS Limited/Unobtainable: No Constitutional: Reports: malaise, weakness HEENT: Reports: no symptoms Cardiovascular: Reports: no symptoms Respiratory: Reports: no symptoms Gastrointestinal/Abdominal: Reports: difficulty swallowing Genitourinary: Reports: no symptoms Neurologic/Psychiatric: Reports: pre-existing deficit Endocrine: Reports: no symptoms Hematologic/Lymphatic: Reports: anemia Allergies: Coded Allergies: VANCOMYCIN (Unverified Allergy, Unknown, 08/02/19) All Systems: reviewed and negative except above Subjective congested with feeds. suctioned brown tube feeding from mouth. poorly responsive Objective Last 24 Hour Vital Signs Date Time Temp Pulse Resp B/P (MAP) Pulse Ox O2 Delivery O2 Flow Rate FiO2 08/06/19 05:58 160/83 08/06/19 04:00 98.2 55 22 160/83 (108) 95 08/06/19 03:38 Nasal Cannula 2.0 08/06/19 01:16 56 16 100 Nasal Cannula 2.0 28 52 16 97 08/05/19 23:49 98.0 63 22 140/80 (100) 94 08/05/19 20:54 Nasal Cannula 2.0 08/05/19 20:00 98.0 56 22 142/58 (86) 95 08/05/19 19:57 62 18 100 Nasal Cannula 2.0 28 58 16 96 08/05/19 19:56 96 Nasal Cannula 2.0 28 08/05/19 16:00 98.4 57 18 115/53 (73) 92 08/05/19 13:09 82 18 100 Nasal Cannula 2.0 28 75 16 98 08/05/19 12:00 97.8 57 18 115/53 (73) 95 08/05/19 09:00 Nasal Cannula 2.0 08/05/19 08:46 98 Nasal Cannula 2.0 28 08/05/19 08:39 178/73 08/05/19 08:30 85 18 100 Nasal Cannula 2.0 28 82 19 97 08/05/19 08:00 96.7 60 18 178/73 (108) 100 Intake and Output 08/05/19 08/06/19 19:00 07:00 Intake Total 105 ml Balance 105 ml Intake Free Water 70 ml Tube Feeding 35 ml # Voids 1 # Bowel Movements 2 1 Laboratory Tests 08/05/19 09:35: White Blood Count 6.1, Red Blood Count 2.31L, Hemoglobin 7.1L, Hematocrit 20.6L , Mean Corpuscular Volume 89, Mean Corpuscular Hemoglobin 30.9, Mean Corpuscular Hemoglobin Concent 34.7, Red Cell Distribution Width 18.0H, Platelet Count 34L, Mean Platelet Volume 8.8, Neutrophils (%) (Auto) , Lymphocytes (%) (Auto) , Monocytes (%) (Auto) , Eosinophils (%) (Auto) , Basophils (%) (Auto) , Differential Total Cells Counted 100, Neutrophils % ( Manual) 69, Lymphocytes % (Manual) 26, Monocytes % (Manual) 4, Eosinophils % ( Manual) 1, Basophils % (Manual) 0, Band Neutrophils 0, Platelet Estimate DecreasedL, Platelet Morphology Normal, Hypochromasia 1+, Anisocytosis 1+, Sodium Level 133L, Potassium Level 4.1, Chloride Level 94L, Carbon Dioxide Level 28, Anion Gap 11, Blood Urea Nitrogen 35H, Creatinine 2.8H, Estimat Glomerular Filtration Rate 16.3, Glucose Level 101, Calcium Level 8.2L, Phosphorus Level 3.7, Total Bilirubin 0.2, Aspartate Amino Transf (AST/SGOT) 27 , Alanine Aminotransferase (ALT/SGPT) 14, Alkaline Phosphatase 129H, C-Reactive Protein, Quantitative 11.3H, Pro-B-Type Natriuretic Peptide 50160T, Total Protein 4.9L, Albumin 1.1L, Globulin 3.8, Albumin/Globulin Ratio 0.3L Height (Feet): 5 Height (Inches): 4.00 Weight (Pounds): 99 General Appearance: WD/WN, lethargic Neck: supple Cardiovascular: normal rate Respiratory/Chest: rhonchi - bilaterally Abdomen: normal bowel sounds, non tender, soft, no organomegaly Edema: no edema noted Arm (L), no edema noted Arm (R), no edema noted Leg (L), no edema noted Leg (R), no edema noted Pedal (L), no edema noted Pedal (R), no edema noted Generalized Neurologic: disoriented, unresponsive, aphasia Nate Beltran MD Aug 06, 2019 07:43
[2019-08-06 08:00] VITALS: BP 121/78
[2019-08-06 09:27] LABS: HEMATOCRIT 20.7 % (37.0-47.0); MEAN CORPUSCULAR VOLUME 89 FL (80-99); PLATELET COUNT 21 K/UL (150-450); RED BLOOD COUNT 2.32 M/UL (4.20-5.40); RED CELL DISTRIBUTION WIDTH 17.4 % (11.6-14.8); WHITE BLOOD COUNT 4.6 K/UL (4.8-10.8)
[2019-08-06 09:39] LABS: HEMOGLOBIN 6.8 G/DL (12.0-16.0)
--- NOTE | 2019-08-06 10:02 | Diagnostic Imaging Report ---
EXAM: CT Head Without Intravenous Contrast CLINICAL HISTORY: AMS TECHNIQUE: Axial computed tomography images of the head/brain without intravenous contrast. CTDI is 53.40 mGy and DLP is 1072.20 mGy-cm. One or more of the following dose reduction techniques were used: automated exposure control, adjustment of the mA and/or kV according to patient size, use of iterative reconstruction technique. Coronal reformatted images were created and reviewed. COMPARISON: CT head dated 11/17/18 FINDINGS: Brain: Generalized parenchymal volume loss, likely age-related. Periventricular white matter hypodensities. Unchanged chronic left frontotemporal infarct. Microcalcifications in bilateral basal ganglia, stable. No evidence of acute intracranial hemorrhage. No mass effect or midline shift. Ventricles: Unremarkable. No ventriculomegaly. Bones/joints: Unremarkable. No acute fracture. Soft tissues: Unremarkable. Sinuses: Unremarkable as visualized. No acute sinusitis. Mastoid air cells: Unremarkable as visualized. No mastoid effusion. Vascular: Atherosclerotic calcifications of bilateral vertebral arteries and the cavernous portions of bilateral ICAs. IMPRESSION: 1. No acute intracranial findings. No intracranial hemorrhage, mass effect, or midline shift. 2. Unchanged appearance of a chronic left frontotemporal infarct. 3. Periventricular white matter hypodensities, likely related to chronic small vessel disease changes. 4. Generalized cerebral parenchymal volume loss, likely age-related.
[2019-08-06 10:19] LABS: ALANINE AMINOTRANSFERASE 15 U/L (12-78); ALBUMIN 1.2 G/DL (3.4-5.0); ALBUMIN/GLOBULIN RATIO 0.3 (1.0-2.7); ALKALINE PHOSPHATASE 98 U/L (46-116); ANION GAP 7 mmol/L (5-15); ASPARTATE AMINO TRANSFERASE 25 U/L (15-37); BILIRUBIN,TOTAL 0.1 MG/DL (0.2-1.0); BLOOD UREA NITROGEN 41 mg/dL (7-18); CALCIUM 8.6 MG/DL (8.5-10.1); CARBON DIOXIDE 31 MMOL/L (21-32); CHLORIDE 93 MMOL/L (98-107); POTASSIUM 4.4 MMOL/L (3.5-5.1); SODIUM 131 MMOL/L (136-145)
[2019-08-06] MEDS: Meropenem 500 MG in NS 55 ML IVPB SCH ×2 (10:19→23:06)
[2019-08-06] MEDS: Lisinopril 2.5mg tab ORAL SCH (10:19)
--- NOTE | 2019-08-06 10:25 | Nephrology Progress Note ---
Assessment/Plan Problem List: (1) ESRD (end stage renal disease) on dialysis (2) Malnutrition (3) Anemia in CKD (chronic kidney disease) (4) Hypotension (5) Thrombocytopenia Assessment -Early sepsis with shock. -Healthcare-associated pneumonia. -Severe protein-calorie malnutrition. -Thrombocytopenia. - End-stage renal disease. - History of hypertension. - Bradycardia. - HypoThyroid Plan transfuse for low Hgb NGT feeding check labs BS control keep BP and BS in check HD as needed Inflammatory markers per orders Subjective ROS Limited/Unobtainable: No Constitutional: Reports: malaise, weakness Objective Objective Last 24 Hour Vital Signs Date Time Temp Pulse Resp B/P (MAP) Pulse Ox O2 Delivery O2 Flow Rate FiO2 08/06/19 10:19 121/78 08/06/19 08:00 97.1 60 18 121/78 (92) 97 08/06/19 07:54 58 20 99 Nasal Cannula 2.0 28 60 20 93 08/06/19 07:53 93 Nasal Cannula 2.0 28 08/06/19 05:58 160/83 08/06/19 04:00 98.2 55 22 160/83 (108) 95 08/06/19 03:38 Nasal Cannula 2.0 08/06/19 01:16 56 16 100 Nasal Cannula 2.0 28 52 16 97 08/05/19 23:49 98.0 63 22 140/80 (100) 94 08/05/19 20:54 Nasal Cannula 2.0 08/05/19 20:00 98.0 56 22 142/58 (86) 95 08/05/19 19:57 62 18 100 Nasal Cannula 2.0 28 58 16 96 08/05/19 19:56 96 Nasal Cannula 2.0 28 08/05/19 16:00 98.4 57 18 115/53 (73) 92 08/05/19 13:09 82 18 100 Nasal Cannula 2.0 28 75 16 98 08/05/19 12:00 97.8 57 18 115/53 (73) 95 Intake and Output 08/05/19 08/06/19 19:00 07:00 Intake Total 105 ml Balance 105 ml Intake Free Water 70 ml Tube Feeding 35 ml # Voids 1 # Bowel Movements 2 1 Laboratory Tests 08/06/19 06:55: White Blood Count 4.6L, Red Blood Count 2.32L, Hemoglobin 6.8*L, Hematocrit 20.7L, Mean Corpuscular Volume 89, Mean Corpuscular Hemoglobin 29.4, Mean Corpuscular Hemoglobin Concent 33.0, Red Cell Distribution Width 17.4H, Platelet Count 21L, Mean Platelet Volume 9.8, Neutrophils (%) (Auto) , Lymphocytes (%) (Auto) , Monocytes (%) (Auto) , Eosinophils (%) (Auto) , Basophils (%) (Auto) , Neutrophils % (Manual) [Pending], Lymphocytes % (Manual) [Pending], Platelet Estimate [Pending], Platelet Morphology [Pending], Sodium Level 131L, Potassium Level 4.4, Chloride Level 93L, Carbon Dioxide Level 31, Anion Gap 7, Blood Urea Nitrogen 41H, Creatinine 3.0H, Estimat Glomerular Filtration Rate 15.1, Glucose Level 100, Calcium Level 8.6, Phosphorus Level [ Pending], Total Bilirubin 0.1L, Aspartate Amino Transf (AST/SGOT) 25, Alanine Aminotransferase (ALT/SGPT) 15, Alkaline Phosphatase 98, C-Reactive Protein, Quantitative [Pending], Total Protein 4.9L, Albumin 1.2L, Globulin 3.7, Albumin/ Globulin Ratio 0.3L Height (Feet): 5 Height (Inches): 4.00 Weight (Pounds): 99 General Appearance: no apparent distress EENT: other - NGT feeding Respiratory/Chest: decreased breath sounds Abdomen: soft William Blackwood MD Aug 06, 2019 10:25
[2019-08-06 11:02] LABS: PHOSPHORUS 4.2 MG/DL (2.5-4.9)
[2019-08-06 12:00] VITALS: BP 155/55
[2019-08-06 16:00] VITALS: BP 141/66
[2019-08-06 19:30] VITALS: BP 101/70
[2019-08-07] VITALS (7 sets, daily range): BP systolic 105–189; BP diastolic 63–96
[2019-08-07] MEDS: Albuterol/Ipratropium 3ml neb HHN SCH ×4 (01:05→19:42)
--- NOTE | 2019-08-07 02:30 | Progress Note ---
DATE: 08/06/2019 CARDIOLOGY PROGRESS NOTE SUBJECTIVE: The patient is congested, aspirating feedings. Blood pressure labile. PHYSICAL EXAMINATION: VITAL SIGNS: Blood pressure 115/53 to 160/83, respiratory rate 16 to 22, heart rate 52 to 63, afebrile. LUNGS: Bilateral breath sounds, rhonchi HEART: Regular rhythm and rate. Normal S1, S2. ABDOMEN: Soft. EXTREMITIES: Right shoulder deformity. No edema. LABORATORY AND DIAGNOSTIC DATA: White count 4.6, hemoglobin 6.8. Sodium 131, potassium 4.4, bicarb 31, BUN 41, creatinine 3, albumin 1.2. CT scan of the brain today revealed no acute process, old infarct. IMPRESSION: 1. Multi-infarct cerebrovascular disease. 2. Dysphagia. 3. Bradycardia. 4. Severe anemia due to chronic kidney disease. 5. End-stage renal disease. PLAN: 1. Packed red blood cell transfusion. 2. Respiratory hygiene. 3. Hemodialysis with ultrafiltration. 4. Titrate antihypertensive regimen. 5. Antimicrobials per Infectious Diseases packaging sales consultant. 6. Protein supplement. Abel Stubbs M.D. DR: Lety JOB#: [id number] CC:
[2019-08-07 07:15] LABS: ALANINE AMINOTRANSFERASE 12 U/L (12-78); ALBUMIN 1.2 G/DL (3.4-5.0); ALBUMIN/GLOBULIN RATIO 0.3 (1.0-2.7); ALKALINE PHOSPHATASE 99 U/L (46-116); ANION GAP 6 mmol/L (5-15); ASPARTATE AMINO TRANSFERASE 24 U/L (15-37); BILIRUBIN,TOTAL 0.4 MG/DL (0.2-1.0); BLOOD UREA NITROGEN 44 mg/dL (7-18); CALCIUM 8.8 MG/DL (8.5-10.1); CARBON DIOXIDE 30 MMOL/L (21-32); CHLORIDE 93 MMOL/L (98-107); CREATININE 3.3 MG/DL (0.55-1.30); PHOSPHORUS 4.5 MG/DL (2.5-4.9); POTASSIUM 4.5 MMOL/L (3.5-5.1); SODIUM 129 MMOL/L (136-145)
[2019-08-07 07:23] LABS: HEMATOCRIT 27.1 % (37.0-47.0); HEMOGLOBIN 9.5 G/DL (12.0-16.0); MEAN CORPUSCULAR VOLUME 88 FL (80-99); PLATELET COUNT 23 K/UL (150-450); RED CELL DISTRIBUTION WIDTH 15.9 % (11.6-14.8); WHITE BLOOD COUNT 5.4 K/UL (4.8-10.8)
[2019-08-07] MEDS: Lisinopril 2.5mg tab ORAL SCH (08:48)
[2019-08-07] MEDS: HydrALAZINE 10mg Tab ORAL PRN (08:49)
[2019-08-07] MEDS: Meropenem 500 MG in NS 55 ML IVPB SCH ×2 (08:50→20:00)
--- NOTE | 2019-08-07 10:55 | Infectious Diseases Prog Note ---
Assessment/Plan Assessment/Plan A; 1. Urinary tract infection with E. coli ESBL 2. Klebsiella sepsis , likely catheter related sepsis. 3. Right shoulder septic arthritis, status post surgery. 4. Diabetes. 5. Hypertension. 6. Anemia PLAN: 1. Continue Meropenem 2. Consider PermCath change Subjective ROS Limited/Unobtainable: Yes Constitutional: Denies: fever Neurologic: Reports: confusion, other - on restraint Allergies: Coded Allergies: VANCOMYCIN (Unverified Allergy, Unknown, 08/02/19) Objective Vital Signs Last 24 Hour Vital Signs Date Time Temp Pulse Resp B/P (MAP) Pulse Ox O2 Delivery O2 Flow Rate FiO2 08/07/19 10:36 59 18 105/63 (77) 100 08/07/19 09:00 Nasal Cannula 2.0 08/07/19 08:49 183/71 08/07/19 08:48 183/71 08/07/19 08:00 97.2 58 20 183/71 (108) 100 08/07/19 07:55 50 20 99 Nasal Cannula 2.0 28 45 20 99 08/07/19 07:55 99 Nasal Cannula 2.0 28 08/07/19 03:26 96.5 62 18 156/96 (116) 96 08/07/19 01:05 64 18 99 Nasal Cannula 2.0 28 62 18 96 08/07/19 00:10 189/87 08/07/19 00:00 96.9 62 18 189/87 (121) 100 08/06/19 21:00 Nasal Cannula 2.0 08/06/19 19:35 99 Nasal Cannula 2.0 28 08/06/19 19:35 62 18 99 Nasal Cannula 2.0 28 60 18 99 08/06/19 19:30 96.9 60 18 101/70 (80) 100 08/06/19 16:00 98.2 55 18 141/66 (91) 100 08/06/19 12:55 69 20 98 Nasal Cannula 2.0 28 67 20 97 08/06/19 12:00 97.6 58 18 155/55 (88) 96 Height (Feet): 5 Height (Inches): 4.00 Weight (Pounds): 103 General Appearance: no acute distress HEENT: mucous membranes moist Respiratory/Chest: lungs clear Cardiovascular: bradycardia, other - R Permacath Abdomen: soft, non tender, other - NG tube Neurologic/Psychiatric: disoriented, other - awake Microbiology Date/Time Source Procedure Growth Status 08/05/19 09:39 Sputum Gram Stain - Final Complete 08/05/19 09:39 Sputum Culture - Final Hailee Albicans Complete Laboratory Tests Test 08/07/19 05:55 White Blood Count 5.4 K/UL (4.8-10.8) Red Blood Count 3.10 M/UL (4.20-5.40) L Hemoglobin 9.5 G/DL (12.0-16.0) #L Hematocrit 27.1 % (37.0-47.0) #L Mean Corpuscular Volume 88 FL (80-99) Mean Corpuscular Hemoglobin 30.5 PG (27.0-31.0) Mean Corpuscular Hemoglobin Concent 34.9 G/DL (32.0-36.0) Red Cell Distribution Width 15.9 % (11.6-14.8) H Platelet Count 23 K/UL (150-450) L Mean Platelet Volume 8.1 FL (6.5-10.1) Neutrophils (%) (Auto) % (45.0-75.0) Lymphocytes (%) (Auto) % (20.0-45.0) Monocytes (%) (Auto) % (1.0-10.0) Eosinophils (%) (Auto) % (0.0-3.0) Basophils (%) (Auto) % (0.0-2.0) Neutrophils % (Manual) Pending Lymphocytes % (Manual) Pending Platelet Estimate Pending Platelet Morphology Pending Sodium Level 129 MMOL/L (136-145) L Potassium Level 4.5 MMOL/L (3.5-5.1) Chloride Level 93 MMOL/L (98-107) L Carbon Dioxide Level 30 MMOL/L (21-32) Anion Gap 6 mmol/L (5-15) Blood Urea Nitrogen 44 mg/dL (7-18) H Creatinine 3.3 MG/DL (0.55-1.30) H Estimat Glomerular Filtration Rate 13.5 mL/min (>60) Glucose Level 138 MG/DL (74-106) H Uric Acid 4.5 MG/DL (2.6-7.2) Calcium Level 8.8 MG/DL (8.5-10.1) Phosphorus Level 4.5 MG/DL (2.5-4.9) Magnesium Level 2.1 MG/DL (1.8-2.4) Total Bilirubin 0.4 MG/DL (0.2-1.0) Aspartate Amino Transf (AST/SGOT) 24 U/L (15-37) Alanine Aminotransferase (ALT/SGPT) 12 U/L (12-78) Alkaline Phosphatase 99 U/L (46-116) C-Reactive Protein, Quantitative 13.9 mg/dL (0.00-0.90) H Pro-B-Type Natriuretic Peptide 29714 pg/mL (0-125) H Total Protein 5.3 G/DL (6.4-8.2) L Albumin 1.2 G/DL (3.4-5.0) L Globulin 4.1 g/dL Albumin/Globulin Ratio 0.3 (1.0-2.7) L Current Medications Medications (Trade) Dose Ordered Sig/Javier Route PRN Reason Start Time Stop Time Status Last Admin Dose Admin Albuterol/ Ipratropium (Albuterol/ Ipratropium) 3 ml Q6HRT HHN 08/04/19 19:00 08/07/19 21:14 08/07/19 08:16 Dextrose (Dextrose 50%) 50 ml Q30M PRN IV Hypoglycemia 08/05/19 17:45 09/04/19 17:44 08/07/19 05:04 Hydralazine HCl (Apresoline) 10 mg Q6H PRN ORAL SBP above 160 08/07/19 01:00 09/06/19 00:59 08/07/19 08:49 Levothyroxine Sodium (Synthroid) 100 mcg DAILY@0630 ORAL 08/05/19 06:30 09/04/19 06:29 08/07/19 05:03 Lisinopril (ZestriL) 5 mg DAILY ORAL 08/07/19 09:00 09/06/19 08:59 08/07/19 08:48 Meropenem 500 mg/ Sodium Chloride 55 ml @ 110 mls/hr EVERY 12 HOURS IVPB 08/04/19 21:00 08/09/19 11:59 08/07/19 08:50 Sevelamer Carbonate (Renvela) 800 mg THREE TIMES A DAY ORAL 08/04/19 18:00 09/02/19 08:59 08/07/19 08:48 Warren Parks MD Aug 07, 2019 10:55
--- NOTE | 2019-08-07 11:35 | Nephrology Progress Note ---
Assessment/Plan Problem List: (1) ESRD (end stage renal disease) on dialysis (2) Malnutrition (3) Anemia in CKD (chronic kidney disease) (4) Hypotension (5) Thrombocytopenia Assessment -Early sepsis with shock. -Healthcare-associated pneumonia. -Severe protein-calorie malnutrition. -Thrombocytopenia. - End-stage renal disease. - History of hypertension. - Bradycardia. - HypoThyroid Plan transfused HD today NGT feeding check labs BS control keep BP and BS in check Inflammatory markers per orders Subjective ROS Limited/Unobtainable: No Constitutional: Reports: malaise Objective Objective Last 24 Hour Vital Signs Date Time Temp Pulse Resp B/P (MAP) Pulse Ox O2 Delivery O2 Flow Rate FiO2 08/07/19 10:36 59 18 105/63 (77) 100 08/07/19 09:00 Nasal Cannula 2.0 08/07/19 08:49 183/71 08/07/19 08:48 183/71 08/07/19 08:00 97.2 58 20 183/71 (108) 100 08/07/19 07:55 50 20 99 Nasal Cannula 2.0 28 45 20 99 08/07/19 07:55 99 Nasal Cannula 2.0 28 08/07/19 03:26 96.5 62 18 156/96 (116) 96 08/07/19 01:05 64 18 99 Nasal Cannula 2.0 28 62 18 96 08/07/19 00:10 189/87 08/07/19 00:00 96.9 62 18 189/87 (121) 100 08/06/19 21:00 Nasal Cannula 2.0 08/06/19 19:35 99 Nasal Cannula 2.0 28 08/06/19 19:35 62 18 99 Nasal Cannula 2.0 28 60 18 99 08/06/19 19:30 96.9 60 18 101/70 (80) 100 08/06/19 16:00 98.2 55 18 141/66 (91) 100 08/06/19 12:55 69 20 98 Nasal Cannula 2.0 28 67 20 97 08/06/19 12:00 97.6 58 18 155/55 (88) 96 Intake and Output 08/06/19 08/07/19 19:00 07:00 Intake Total 165 ml 425 ml Balance 165 ml 425 ml Intake Free Water 110 ml 120 ml IV Total 55 ml 55 ml Blood Product 250 ml # Voids 1 # Bowel Movements 1 1 Current Medications Medications (Trade) Dose Ordered Sig/Javier Route PRN Reason Start Time Stop Time Status Last Admin Dose Admin Albuterol/ Ipratropium (Albuterol/ Ipratropium) 3 ml Q6HRT HHN 08/04/19 19:00 08/07/19 21:14 08/07/19 08:16 Dextrose (Dextrose 50%) 50 ml Q30M PRN IV Hypoglycemia 08/05/19 17:45 09/04/19 17:44 08/07/19 05:04 Hydralazine HCl (Apresoline) 10 mg Q6H PRN ORAL SBP above 160 08/07/19 01:00 09/06/19 00:59 08/07/19 08:49 Levothyroxine Sodium (Synthroid) 100 mcg DAILY@0630 ORAL 08/05/19 06:30 09/04/19 06:29 08/07/19 05:03 Lisinopril (ZestriL) 5 mg DAILY ORAL 08/07/19 09:00 09/06/19 08:59 08/07/19 08:48 Meropenem 500 mg/ Sodium Chloride 55 ml @ 110 mls/hr EVERY 12 HOURS IVPB 08/04/19 21:00 08/09/19 11:59 08/07/19 08:50 Sevelamer Carbonate (Renvela) 800 mg THREE TIMES A DAY ORAL 08/04/19 18:00 09/02/19 08:59 08/07/19 08:48 Laboratory Tests 08/07/19 05:55: White Blood Count 5.4, Red Blood Count 3.10L, Hemoglobin 9.5#L, Hematocrit 27.1# L, Mean Corpuscular Volume 88, Mean Corpuscular Hemoglobin 30.5, Mean Corpuscular Hemoglobin Concent 34.9, Red Cell Distribution Width 15.9H, Platelet Count 23L, Mean Platelet Volume 8.1, Neutrophils (%) (Auto) , Lymphocytes (%) (Auto) , Monocytes (%) (Auto) , Eosinophils (%) (Auto) , Basophils (%) (Auto) , Differential Total Cells Counted 100, Neutrophils % ( Manual) 70, Lymphocytes % (Manual) 24, Monocytes % (Manual) 4, Eosinophils % ( Manual) 2, Basophils % (Manual) 0, Band Neutrophils 0, Platelet Estimate DecreasedL, Platelet Morphology Normal, Hypochromasia 1+, Anisocytosis 1+, Sodium Level 129L, Potassium Level 4.5, Chloride Level 93L, Carbon Dioxide Level 30, Anion Gap 6, Blood Urea Nitrogen 44H, Creatinine 3.3H, Estimat Glomerular Filtration Rate 13.5, Glucose Level 138H, Uric Acid 4.5, Calcium Level 8.8, Phosphorus Level 4.5, Magnesium Level 2.1, Total Bilirubin 0.4, Aspartate Amino Transf (AST/SGOT) 24, Alanine Aminotransferase (ALT/SGPT) 12, Alkaline Phosphatase 99, C-Reactive Protein, Quantitative 13.9H, Pro-B-Type Natriuretic Peptide 03218X, Total Protein 5.3L, Albumin 1.2L, Globulin 4.1, Albumin/Globulin Ratio 0.3L Height (Feet): 5 Height (Inches): 4.00 Weight (Pounds): 103 General Appearance: no apparent distress Objective no change William Blackwood MD Aug 07, 2019 11:35
--- NOTE | 2019-08-07 13:03 | General Progress Note ---
Assessment/Plan Problem List: (1) Failure to thrive (0-17) ICD Codes: R62.51 - Failure to thrive (0-17) SNOMED: 012083212 (2) Hypertensive kidney disease ICD Codes: I12.9 - Hypertensive chronic kidney disease with stage 1 through stage 4 chronic kidney disease, or unspecified chronic kidney disease SNOMED: 96234460 (3) Pneumonia ICD Codes: J18.9 - Pneumonia, unspecified organism SNOMED: 807248007 Qualifiers: Qualified Codes: J18.9 - Pneumonia, unspecified organism (4) ESRD (end stage renal disease) ICD Codes: N18.6 - End stage renal disease SNOMED: 20474112 (5) Septic arthritis ICD Codes: M00.9 - Pyogenic arthritis, unspecified SNOMED: 217198819 (6) Thrombocytopenia ICD Codes: D69.6 - Thrombocytopenia, unspecified SNOMED: 217771415 (7) Hypotension ICD Codes: I95.9 - Hypotension, unspecified SNOMED: 01767755 Qualifiers: Qualified Codes: I95.3 - Hypotension of hemodialysis (8) Malnutrition ICD Codes: E46 - Unspecified protein-calorie malnutrition SNOMED: 15711133 Status: not improved, unchanged Assessment/Plan: retry feeds monitor cxr iv abx resp rx suctioning HD per renal to d/w ID and renal perm change to d/w family gt Subjective ROS Limited/Unobtainable: No Constitutional: Reports: malaise, weakness HEENT: Reports: no symptoms Cardiovascular: Reports: no symptoms Respiratory: Reports: cough Gastrointestinal/Abdominal: Reports: difficulty swallowing Genitourinary: Reports: no symptoms Neurologic/Psychiatric: Reports: pre-existing deficit Endocrine: Reports: no symptoms Hematologic/Lymphatic: Reports: anemia Allergies: Coded Allergies: VANCOMYCIN (Unverified Allergy, Unknown, 08/02/19) All Systems: reviewed and negative except above Subjective less congested. more alert. s/p transfusion. no reports of bleeding. Objective Last 24 Hour Vital Signs Date Time Temp Pulse Resp B/P (MAP) Pulse Ox O2 Delivery O2 Flow Rate FiO2 08/07/19 12:00 97.2 59 18 164/94 (117) 98 08/07/19 10:36 59 18 105/63 (77) 100 08/07/19 09:00 Nasal Cannula 2.0 2/23/20 08:49 183/71 08/07/19 08:48 183/71 08/07/19 08:00 97.2 58 20 183/71 (108) 100 08/07/19 07:55 50 20 99 Nasal Cannula 2.0 28 45 20 99 08/07/19 07:55 99 Nasal Cannula 2.0 28 08/07/19 03:26 96.5 62 18 156/96 (116) 96 08/07/19 01:05 64 18 99 Nasal Cannula 2.0 28 62 18 96 08/07/19 00:10 189/87 08/07/19 00:00 96.9 62 18 189/87 (121) 100 08/06/19 21:00 Nasal Cannula 2.0 08/06/19 19:35 99 Nasal Cannula 2.0 28 08/06/19 19:35 62 18 99 Nasal Cannula 2.0 28 60 18 99 08/06/19 19:30 96.9 60 18 101/70 (80) 100 08/06/19 16:00 98.2 55 18 141/66 (91) 100 Intake and Output 08/06/19 08/07/19 19:00 07:00 Intake Total 165 ml 425 ml Balance 165 ml 425 ml Intake Free Water 110 ml 120 ml IV Total 55 ml 55 ml Blood Product 250 ml # Voids 1 # Bowel Movements 1 1 Laboratory Tests 08/07/19 05:55: White Blood Count 5.4, Red Blood Count 3.10L, Hemoglobin 9.5#L, Hematocrit 27.1# L, Mean Corpuscular Volume 88, Mean Corpuscular Hemoglobin 30.5, Mean Corpuscular Hemoglobin Concent 34.9, Red Cell Distribution Width 15.9H, Platelet Count 23L, Mean Platelet Volume 8.1, Neutrophils (%) (Auto) , Lymphocytes (%) (Auto) , Monocytes (%) (Auto) , Eosinophils (%) (Auto) , Basophils (%) (Auto) , Differential Total Cells Counted 100, Neutrophils % ( Manual) 70, Lymphocytes % (Manual) 24, Monocytes % (Manual) 4, Eosinophils % ( Manual) 2, Basophils % (Manual) 0, Band Neutrophils 0, Platelet Estimate DecreasedL, Platelet Morphology Normal, Hypochromasia 1+, Anisocytosis 1+, Sodium Level 129L, Potassium Level 4.5, Chloride Level 93L, Carbon Dioxide Level 30, Anion Gap 6, Blood Urea Nitrogen 44H, Creatinine 3.3H, Estimat Glomerular Filtration Rate 13.5, Glucose Level 138H, Uric Acid 4.5, Calcium Level 8.8, Phosphorus Level 4.5, Magnesium Level 2.1, Total Bilirubin 0.4, Aspartate Amino Transf (AST/SGOT) 24, Alanine Aminotransferase (ALT/SGPT) 12, Alkaline Phosphatase 99, C-Reactive Protein, Quantitative 13.9H, Pro-B-Type Natriuretic Peptide 37385D, Total Protein 5.3L, Albumin 1.2L, Globulin 4.1, Albumin/Globulin Ratio 0.3L Height (Feet): 5 Height (Inches): 4.00 Weight (Pounds): 103 Objective General Appearance: WD/WN, awake Neck: supple Cardiovascular: normal rate Respiratory/Chest: rhonchi - bilaterally Abdomen: normal bowel sounds, non tender, soft, no organomegaly Edema: no edema noted Arm (L), no edema noted Arm (R), no edema noted Leg (L), no edema noted Leg (R), no edema noted Pedal (L), no edema noted Pedal (R), no edema noted Generalized Neurologic: disoriented, unresponsive, aphasia Nate Beltran MD Aug 07, 2019 13:03
[2019-08-08] VITALS (8 sets, daily range): BP systolic 106–166; BP diastolic 57–97
[2019-08-08] MEDS: HydrALAZINE 10mg Tab ORAL PRN (00:11)
--- NOTE | 2019-08-08 03:15 | Progress Note ---
DATE: 08/07/2019 CARDIOLOGY PROGRESS NOTE SUBJECTIVE: More alert, less congested, no bleeding, status post transfusion, continues to have low platelet count. OBJECTIVE: VITAL SIGNS: Blood pressure parameters labile, 105/63 to 164/94, heart rate 59, respiratory rate 18, and afebrile. GENERAL: Right shoulder deformity. LUNGS: Clear. CHEST: PermCath site with no signs of drainage. CARDIAC: Regular. Normal S1, S2 with a 1/6 systolic murmur at the apex. ABDOMEN: Soft. There is no edema. IMPRESSION: 1. Sepsis. 2. Pneumonia. 3. End-stage renal disease. 4. Thrombocytopenia. 5. Hypertensive heart disease. 6. Chronic diastolic congestive heart failure. 7. Anemia of chronic kidney disease, status post transfusion. 8. Bradycardia. 9. Hypothyroidism. PLAN: 1. Hemodialysis with ultrafiltration. 2. Titrate antihypertensive. 3. Thyroid supplement. Abel Stubbs M.D. DR: ADAM JOB#: [id number] CC:
[2019-08-08 06:39] LABS: HEMATOCRIT 28.3 % (37.0-47.0); HEMOGLOBIN 9.7 G/DL (12.0-16.0); MEAN CORPUSCULAR VOLUME 88 FL (80-99); PLATELET COUNT 43 K/UL (150-450); RED CELL DISTRIBUTION WIDTH 16.1 % (11.6-14.8); WHITE BLOOD COUNT 6.7 K/UL (4.8-10.8)
[2019-08-08 07:05] LABS: ALANINE AMINOTRANSFERASE 15 U/L (12-78); ALBUMIN 1.4 G/DL (3.4-5.0); ALBUMIN/GLOBULIN RATIO 0.3 (1.0-2.7); ALKALINE PHOSPHATASE 129 U/L (46-116); ANION GAP 5 mmol/L (5-15); ASPARTATE AMINO TRANSFERASE 35 U/L (15-37); BILIRUBIN,TOTAL 0.4 MG/DL (0.2-1.0); BLOOD UREA NITROGEN 32 mg/dL (7-18); CALCIUM 8.6 MG/DL (8.5-10.1); CARBON DIOXIDE 32 MMOL/L (21-32); CHLORIDE 98 MMOL/L (98-107); CREATININE 2.8 MG/DL (0.55-1.30); PHOSPHORUS 3.5 MG/DL (2.5-4.9); POTASSIUM 4.1 MMOL/L (3.5-5.1); SODIUM 135 MMOL/L (136-145)
--- NOTE | 2019-08-08 07:51 | General Progress Note ---
Assessment/Plan Problem List: (1) Failure to thrive (0-17) ICD Codes: R62.51 - Failure to thrive (0-17) SNOMED: 161564626 (2) Hypertensive kidney disease ICD Codes: I12.9 - Hypertensive chronic kidney disease with stage 1 through stage 4 chronic kidney disease, or unspecified chronic kidney disease SNOMED: 98201242 (3) Pneumonia ICD Codes: J18.9 - Pneumonia, unspecified organism SNOMED: 052293050 Qualifiers: Qualified Codes: J18.9 - Pneumonia, unspecified organism (4) ESRD (end stage renal disease) ICD Codes: N18.6 - End stage renal disease SNOMED: 96975894 (5) Septic arthritis ICD Codes: M00.9 - Pyogenic arthritis, unspecified SNOMED: 371952288 (6) Thrombocytopenia ICD Codes: D69.6 - Thrombocytopenia, unspecified SNOMED: 998336129 (7) Hypotension ICD Codes: I95.9 - Hypotension, unspecified SNOMED: 07597517 Qualifiers: Qualified Codes: I95.3 - Hypotension of hemodialysis (8) Malnutrition ICD Codes: E46 - Unspecified protein-calorie malnutrition SNOMED: 06727706 Status: not improved, unchanged Assessment/Plan: retry feeds monitor cxr iv abx resp rx suctioning HD per renal to d/w ID and renal perm change to d/w family gt- message left with son needs gt Subjective ROS Limited/Unobtainable: Yes Constitutional: Reports: malaise, weakness HEENT: Reports: no symptoms Cardiovascular: Reports: no symptoms Respiratory: Reports: no symptoms Genitourinary: Reports: no symptoms Neurologic/Psychiatric: Reports: depressed, emotional problems Endocrine: Reports: no symptoms Hematologic/Lymphatic: Reports: anemia Allergies: Coded Allergies: VANCOMYCIN (Unverified Allergy, Unknown, 08/02/19) All Systems: reviewed and negative except above Subjective less congested. more alert. s/p transfusion. no reports of bleeding. not tolerating feeds. increased residuals Objective Last 24 Hour Vital Signs Date Time Temp Pulse Resp B/P (MAP) Pulse Ox O2 Delivery O2 Flow Rate FiO2 08/08/19 05:39 158/97 (117) 08/08/19 03:54 98.0 61 20 163/94 (117) 99 08/08/19 00:11 160/57 08/08/19 00:00 98.2 71 19 160/57 (91) 98 08/07/19 21:00 Nasal Cannula 2.0 08/07/19 20:00 97.3 65 20 157/92 (113) 100 08/07/19 19:45 70 20 99 Nasal Cannula 2.0 28 67 20 99 08/07/19 19:45 99 Nasal Cannula 2.0 28 08/07/19 16:00 97.9 70 20 130/63 (85) 95 08/07/19 13:15 62 20 99 Nasal Cannula 2.0 28 59 20 97 08/07/19 12:00 97.2 59 18 164/94 (117) 98 08/07/19 10:36 59 18 105/63 (77) 100 08/07/19 09:00 Nasal Cannula 2.0 08/07/19 08:49 183/71 08/07/19 08:48 183/71 08/07/19 08:00 97.2 58 20 183/71 (108) 100 08/07/19 07:55 50 20 99 Nasal Cannula 2.0 28 45 20 99 08/07/19 07:55 99 Nasal Cannula 2.0 28 Intake and Output 08/07/19 08/08/19 19:00 07:00 Intake Total 1065 ml 325 ml Balance 1065 ml 325 ml Intake Free Water 20 ml 120 ml IV Total 55 ml Tube Feeding 45 ml 150 ml Hemodialysis 1000 ml Laboratory Tests 08/08/19 05:27: White Blood Count 6.7, Red Blood Count 3.20L, Hemoglobin 9.7L, Hematocrit 28.3L , Mean Corpuscular Volume 88, Mean Corpuscular Hemoglobin 30.4, Mean Corpuscular Hemoglobin Concent 34.4, Red Cell Distribution Width 16.1H, Platelet Count 43#L, Mean Platelet Volume 10.2H, Neutrophils (%) (Auto) , Lymphocytes (%) (Auto) , Monocytes (%) (Auto) , Eosinophils (%) (Auto) , Basophils (%) (Auto) , Neutrophils % (Manual) [Pending], Lymphocytes % (Manual) [Pending], Platelet Estimate [Pending], Platelet Morphology [Pending], Sodium Level 135L, Potassium Level 4.1, Chloride Level 98, Carbon Dioxide Level 32, Anion Gap 5, Blood Urea Nitrogen 32H, Creatinine 2.8H, Estimat Glomerular Filtration Rate 16.3, Glucose Level 93, Calcium Level 8.6, Phosphorus Level 3.5 , Magnesium Level 2.1, Total Bilirubin 0.4, Aspartate Amino Transf (AST/SGOT) 35 , Alanine Aminotransferase (ALT/SGPT) 15, Alkaline Phosphatase 129H, C-Reactive Protein, Quantitative 15.8H, Pro-B-Type Natriuretic Peptide 20366J, Total Protein 5.8L, Albumin 1.4L, Globulin 4.4, Albumin/Globulin Ratio 0.3L Height (Feet): 5 Height (Inches): 4.00 Weight (Pounds): 103 Objective General Appearance: WD/WN, awake Neck: supple Cardiovascular: normal rate Respiratory/Chest: rhonchi - bilaterally Abdomen: normal bowel sounds, non tender, soft, no organomegaly Edema: no edema noted Arm (L), no edema noted Arm (R), no edema noted Leg (L), no edema noted Leg (R), no edema noted Pedal (L), no edema noted Pedal (R), no edema noted Generalized Neurologic: disoriented, unresponsive, aphasia Nate Beltran MD Aug 08, 2019 07:51
[2019-08-08] MEDS: Lisinopril 2.5mg tab ORAL SCH (08:21)
[2019-08-08] MEDS: Meropenem 500 MG in NS 55 ML IVPB SCH ×2 (08:21→20:43)
--- NOTE | 2019-08-08 10:55 | Infectious Diseases Prog Note ---
Assessment/Plan Assessment/Plan A; 1. Urinary tract infection with E. coli ESBL 2. Klebsiella sepsis , likely catheter related sepsis. 3. Right shoulder septic arthritis, status post surgery. 4. Diabetes. 5. Hypertension. 6. Anemia PLAN: 1. Continue Meropenem 2. Change PermCath Subjective ROS Limited/Unobtainable: Yes Neurologic: Reports: confusion, other - on restraint Allergies: Coded Allergies: VANCOMYCIN (Unverified Allergy, Unknown, 08/02/19) Objective Vital Signs Last 24 Hour Vital Signs Date Time Temp Pulse Resp B/P (MAP) Pulse Ox O2 Delivery O2 Flow Rate FiO2 08/08/19 08:45 Nasal Cannula 2.0 08/08/19 08:21 158/97 08/08/19 08:00 98.5 70 18 136/96 (109) 99 08/08/19 05:39 158/97 (117) 08/08/19 03:54 98.0 61 20 163/94 (117) 99 08/08/19 00:11 160/57 08/08/19 00:00 98.2 71 19 160/57 (91) 98 08/07/19 21:00 Nasal Cannula 2.0 08/07/19 20:00 97.3 65 20 157/92 (113) 100 08/07/19 19:45 70 20 99 Nasal Cannula 2.0 28 67 20 99 08/07/19 19:45 99 Nasal Cannula 2.0 28 08/07/19 16:00 97.9 70 20 130/63 (85) 95 08/07/19 13:15 62 20 99 Nasal Cannula 2.0 28 59 20 97 08/07/19 12:00 97.2 59 18 164/94 (117) 98 Height (Feet): 5 Height (Inches): 4.00 Weight (Pounds): 103 General Appearance: cachetic Respiratory/Chest: lungs clear, other - oxygen by nasal cannula Cardiovascular: normal rate, other - R Permacath Abdomen: soft, non tender Extremities: no edema Neurologic/Psychiatric: aphasia Musculoskeletal: atrophy Laboratory Tests Test 08/08/19 05:27 White Blood Count 6.7 K/UL (4.8-10.8) Red Blood Count 3.20 M/UL (4.20-5.40) L Hemoglobin 9.7 G/DL (12.0-16.0) L Hematocrit 28.3 % (37.0-47.0) L Mean Corpuscular Volume 88 FL (80-99) Mean Corpuscular Hemoglobin 30.4 PG (27.0-31.0) Mean Corpuscular Hemoglobin Concent 34.4 G/DL (32.0-36.0) Red Cell Distribution Width 16.1 % (11.6-14.8) H Platelet Count 43 K/UL (150-450) #L Mean Platelet Volume 10.2 FL (6.5-10.1) H Neutrophils (%) (Auto) % (45.0-75.0) Lymphocytes (%) (Auto) % (20.0-45.0) Monocytes (%) (Auto) % (1.0-10.0) Eosinophils (%) (Auto) % (0.0-3.0) Basophils (%) (Auto) % (0.0-2.0) Differential Total Cells Counted 100 Neutrophils % (Manual) 58 % (45-75) Lymphocytes % (Manual) 40 % (20-45) Monocytes % (Manual) 2 % (1-10) Eosinophils % (Manual) 0 % (0-3) Basophils % (Manual) 0 % (0-2) Band Neutrophils 0 % (0-8) Platelet Estimate Decreased L Platelet Morphology Normal Hypochromasia 1+ Sodium Level 135 MMOL/L (136-145) L Potassium Level 4.1 MMOL/L (3.5-5.1) Chloride Level 98 MMOL/L (98-107) Carbon Dioxide Level 32 MMOL/L (21-32) Anion Gap 5 mmol/L (5-15) Blood Urea Nitrogen 32 mg/dL (7-18) H Creatinine 2.8 MG/DL (0.55-1.30) H Estimat Glomerular Filtration Rate 16.3 mL/min (>60) Glucose Level 93 MG/DL (74-106) Calcium Level 8.6 MG/DL (8.5-10.1) Phosphorus Level 3.5 MG/DL (2.5-4.9) Magnesium Level 2.1 MG/DL (1.8-2.4) Total Bilirubin 0.4 MG/DL (0.2-1.0) Aspartate Amino Transf (AST/SGOT) 35 U/L (15-37) Alanine Aminotransferase (ALT/SGPT) 15 U/L (12-78) Alkaline Phosphatase 129 U/L (46-116) H C-Reactive Protein, Quantitative 15.8 mg/dL (0.00-0.90) H Pro-B-Type Natriuretic Peptide 14632 pg/mL (0-125) H Total Protein 5.8 G/DL (6.4-8.2) L Albumin 1.4 G/DL (3.4-5.0) L Globulin 4.4 g/dL Albumin/Globulin Ratio 0.3 (1.0-2.7) L Current Medications Medications (Trade) Dose Ordered Sig/Javier Route PRN Reason Start Time Stop Time Status Last Admin Dose Admin Dextrose (Dextrose 50%) 50 ml Q30M PRN IV Hypoglycemia 08/05/19 17:45 09/04/19 17:44 08/07/19 23:35 Hydralazine HCl (Apresoline) 10 mg Q6H PRN ORAL SBP above 160 08/07/19 01:00 09/06/19 00:59 08/08/19 00:11 Levothyroxine Sodium (Synthroid) 100 mcg DAILY@0630 ORAL 08/05/19 06:30 09/04/19 06:29 08/08/19 06:19 Lisinopril (ZestriL) 5 mg DAILY ORAL 08/07/19 09:00 09/06/19 08:59 08/08/19 08:21 Meropenem 500 mg/ Sodium Chloride 55 ml @ 110 mls/hr EVERY 12 HOURS IVPB 08/04/19 21:00 08/09/19 11:59 08/08/19 08:21 Metoclopramide HCl (Reglan) 5 mg Q8H PRN IVP Nausea & Vomiting 08/08/19 08:00 09/07/19 07:59 Sevelamer Carbonate (Renvela) 800 mg THREE TIMES A DAY ORAL 08/04/19 18:00 09/02/19 08:59 08/08/19 08:22 Warren Parks MD Aug 08, 2019 10:55
--- NOTE | 2019-08-08 10:59 | Nephrology Progress Note ---
Assessment/Plan Problem List: (1) ESRD (end stage renal disease) on dialysis (2) Malnutrition (3) Anemia in CKD (chronic kidney disease) (4) Hypotension (5) Thrombocytopenia (6) Sepsis Assessment: klebsiella in blood Assessment -Early sepsis with shock. -Healthcare-associated pneumonia. -Severe protein-calorie malnutrition. -Thrombocytopenia. - End-stage renal disease. - History of hypertension. - Bradycardia. - HypoThyroid Plan transfused HD 08/07 remove dialysis cath: Klebsiella in blood BC in am NGT feeding check labs BS control keep BP and BS in check Inflammatory markers per orders Subjective ROS Limited/Unobtainable: No Constitutional: Reports: malaise, weakness Objective Objective Last 24 Hour Vital Signs Date Time Temp Pulse Resp B/P (MAP) Pulse Ox O2 Delivery O2 Flow Rate FiO2 08/08/19 08:45 Nasal Cannula 2.0 08/08/19 08:21 158/97 08/08/19 08:00 98.5 70 18 136/96 (109) 99 08/08/19 05:39 158/97 (117) 08/08/19 03:54 98.0 61 20 163/94 (117) 99 08/08/19 00:11 160/57 08/08/19 00:00 98.2 71 19 160/57 (91) 98 08/07/19 21:00 Nasal Cannula 2.0 08/07/19 20:00 97.3 65 20 157/92 (113) 100 08/07/19 19:45 70 20 99 Nasal Cannula 2.0 28 67 20 99 08/07/19 19:45 99 Nasal Cannula 2.0 28 08/07/19 16:00 97.9 70 20 130/63 (85) 95 08/07/19 13:15 62 20 99 Nasal Cannula 2.0 28 59 20 97 08/07/19 12:00 97.2 59 18 164/94 (117) 98 Intake and Output 08/07/19 08/08/19 19:00 07:00 Intake Total 1065 ml 325 ml Balance 1065 ml 325 ml Intake Free Water 20 ml 120 ml IV Total 55 ml Tube Feeding 45 ml 150 ml Hemodialysis 1000 ml Laboratory Tests 08/08/19 05:27: White Blood Count 6.7, Red Blood Count 3.20L, Hemoglobin 9.7L, Hematocrit 28.3L , Mean Corpuscular Volume 88, Mean Corpuscular Hemoglobin 30.4, Mean Corpuscular Hemoglobin Concent 34.4, Red Cell Distribution Width 16.1H, Platelet Count 43#L, Mean Platelet Volume 10.2H, Neutrophils (%) (Auto) , Lymphocytes (%) (Auto) , Monocytes (%) (Auto) , Eosinophils (%) (Auto) , Basophils (%) (Auto) , Differential Total Cells Counted 100, Neutrophils % ( Manual) 58, Lymphocytes % (Manual) 40, Monocytes % (Manual) 2, Eosinophils % ( Manual) 0, Basophils % (Manual) 0, Band Neutrophils 0, Platelet Estimate DecreasedL, Platelet Morphology Normal, Hypochromasia 1+, Sodium Level 135L, Potassium Level 4.1, Chloride Level 98, Carbon Dioxide Level 32, Anion Gap 5, Blood Urea Nitrogen 32H, Creatinine 2.8H, Estimat Glomerular Filtration Rate 16.3, Glucose Level 93, Calcium Level 8.6, Phosphorus Level 3.5, Magnesium Level 2.1, Total Bilirubin 0.4, Aspartate Amino Transf (AST/SGOT) 35, Alanine Aminotransferase (ALT/SGPT) 15, Alkaline Phosphatase 129H, C-Reactive Protein, Quantitative 15.8H, Pro-B-Type Natriuretic Peptide 00510M, Total Protein 5.8L, Albumin 1.4L, Globulin 4.4, Albumin/Globulin Ratio 0.3L Height (Feet): 5 Height (Inches): 4.00 Weight (Pounds): 103 General Appearance: no apparent distress Cardiovascular: normal rate Respiratory/Chest: decreased breath sounds Abdomen: soft Objective no change William Blackwood MD Aug 08, 2019 10:59
--- NOTE | 2019-08-08 12:54 | Diagnostic Imaging Report ---
Indication: Shortness of breath Technique: One view of the chest Comparison: 08/05/2019 Findings: Less optimal positioning currently, patient reportedly combative per technologist. There is interim increased opacification of the left hemithorax. There is suspicion of increased interstitial disease in the right lung, including upper lung: There does appear to be slightly improved aeration of the right lung base. Right jugular tunneled dialysis catheter, chronic right shoulder deformity again demonstrated. Previously demonstrated nasogastric tube is been removed. Impression: Increasing opacification of the left hemithorax, likely increased pleural fluid, atelectasis, or combination of both. Shifting infiltrates in the right lung, increasing in the right lung apex, improved at the right lung base Interim nasogastric tube removal Other stable findings as described
[2019-08-08] MEDS: Metoclopramide 10mg/2ml Inj IVP PRN (23:42)
[2019-08-09] VITALS (18 sets, daily range): BP systolic 125–188; BP diastolic 53–94
--- NOTE | 2019-08-09 01:30 | Progress Note ---
DATE: 08/08/2019 CARDIOLOGY PROGRESS NOTE SUBJECTIVE: The patient failed swallow evaluation. She had restraints, but still managed to pull out NG-tube. Blood pressure parameters are labile. Chest x-ray today revealed worsening infiltrate in the right lung field. PHYSICAL EXAMINATION: LUNGS: Bilateral breath sounds. Rhonchi, right greater than left. CARDIAC: Regular rhythm and rate. Normal S1, S2. ABDOMEN: Soft. CHEST WALL: With PermCath in place. EXTREMITIES: Right shoulder deformity. No edema. IMPRESSION: 1. Dysphagia. 2. Aspiration pneumonia. 3. End-stage renal disease. 4. Sepsis. PLAN: 1. NG-tube replacement. 2. Topical antihypertensives. 3. She will need G-tube long-term. 4. PermCath to be changed due to infection. 5. Sublingual and topical antihypertensive therapy until G-tube or NG tube replaced. Abel Stubbs M.D. DR: EMRE JOB#: [id number] CC:
[2019-08-09] MEDS: Nitroglycerin 2% oint pkt TOPIC SCH ×4 (02:20→17:00)
[2019-08-09 08:03] LABS: HEMATOCRIT 27.1 % (37.0-47.0); HEMOGLOBIN 9.4 G/DL (12.0-16.0); MEAN CORPUSCULAR VOLUME 86 FL (80-99); PLATELET COUNT 36 K/UL (150-450); RED BLOOD COUNT 3.13 M/UL (4.20-5.40); RED CELL DISTRIBUTION WIDTH 16.8 % (11.6-14.8); WHITE BLOOD COUNT 8.3 K/UL (4.8-10.8)
[2019-08-09 08:25] LABS: ALANINE AMINOTRANSFERASE 8 U/L (12-78); ALBUMIN 1.4 G/DL (3.4-5.0); ALBUMIN/GLOBULIN RATIO 0.3 (1.0-2.7); ALKALINE PHOSPHATASE 122 U/L (46-116); ANION GAP 10 mmol/L (5-15); ASPARTATE AMINO TRANSFERASE 30 U/L (15-37); BILIRUBIN,TOTAL 0.5 MG/DL (0.2-1.0); BLOOD UREA NITROGEN 36 mg/dL (7-18); CALCIUM 9.4 MG/DL (8.5-10.1); CARBON DIOXIDE 32 MMOL/L (21-32); CHLORIDE 96 MMOL/L (98-107); CREATININE 3.2 MG/DL (0.55-1.30); PHOSPHORUS 3.8 MG/DL (2.5-4.9); POTASSIUM 3.7 MMOL/L (3.5-5.1); SODIUM 138 MMOL/L (136-145)
[2019-08-09] MEDS: Lisinopril 2.5mg tab ORAL SCH (08:38)
[2019-08-09] MEDS: Metoclopramide 10mg/2ml Inj IVP PRN (09:29)
[2019-08-09] MEDS: Meropenem 500 MG in NS 55 ML IVPB SCH ×2 (09:29→20:59)
--- NOTE | 2019-08-09 10:31 | Nephrology Progress Note ---
Assessment/Plan Problem List: (1) ESRD (end stage renal disease) on dialysis (2) Malnutrition (3) Anemia in CKD (chronic kidney disease) (4) Hypotension (5) Thrombocytopenia (6) Sepsis Assessment: klebsiella in blood Assessment -Early sepsis with shock. -Healthcare-associated pneumonia. -Severe protein-calorie malnutrition. -Thrombocytopenia. - End-stage renal disease. - History of hypertension. - Bradycardia. - HypoThyroid Plan permacath not removed by IR , citing low platelets Patient has hematemesis will transfuse platelets and remove cath meds IV as possible transfused HD 08/07 remove dialysis cath: Klebsiella in blood BC in am NGT feeding check labs BS control keep BP and BS in check Inflammatory markers per orders Subjective ROS Limited/Unobtainable: Yes Constitutional: Reports: malaise, other - non verbal Objective Objective Last 24 Hour Vital Signs Date Time Temp Pulse Resp B/P (MAP) Pulse Ox O2 Delivery O2 Flow Rate FiO2 08/09/19 09:00 Nasal Cannula 2.0 08/09/19 08:10 98.2 74 21 188/72 (110) 95 08/09/19 06:27 173/85 08/09/19 04:00 98.1 74 21 173/85 (114) 97 08/09/19 02:20 187/77 08/09/19 02:18 95 Nasal Cannula 2.0 28 08/09/19 00:00 97.6 77 20 187/77 (113) 91 08/08/19 21:00 Nasal Cannula 2.0 08/08/19 20:00 97.8 69 19 166/91 (116) 92 08/08/19 16:15 97.5 76 18 106/75 (85) 93 08/08/19 16:00 97.0 76 18 131/88 (102) 94 08/08/19 13:06 96 Nasal Cannula 2.0 28 08/08/19 12:02 97.0 76 18 131/88 (102) 94 Intake and Output 08/08/19 08/09/19 19:00 07:00 Intake Total 55 ml Balance 55 ml IV Total 55 ml # Voids 2 Laboratory Tests 08/09/19 06:20: White Blood Count 8.3, Red Blood Count 3.13L, Hemoglobin 9.4L, Hematocrit 27.1L , Mean Corpuscular Volume 86, Mean Corpuscular Hemoglobin 29.9, Mean Corpuscular Hemoglobin Concent 34.6, Red Cell Distribution Width 16.8H, Platelet Count 36L, Mean Platelet Volume 11.3H, Neutrophils (%) (Auto) , Lymphocytes (%) (Auto) , Monocytes (%) (Auto) , Eosinophils (%) (Auto) , Basophils (%) (Auto) , Neutrophils % (Manual) [Pending], Lymphocytes % (Manual) [Pending], Platelet Estimate [Pending], Platelet Morphology [Pending], Sodium Level 138, Potassium Level 3.7, Chloride Level 96L, Carbon Dioxide Level 32, Anion Gap 10, Blood Urea Nitrogen 36H, Creatinine 3.2H, Estimat Glomerular Filtration Rate 13.9, Glucose Level 94, Calcium Level 9.4, Phosphorus Level 3.8 , Total Bilirubin 0.5, Aspartate Amino Transf (AST/SGOT) 30, Alanine Aminotransferase (ALT/SGPT) 8L, Alkaline Phosphatase 122H, C-Reactive Protein, Quantitative 14.2H, Pro-B-Type Natriuretic Peptide 32537B, Total Protein 5.9L, Albumin 1.4L, Globulin 4.5, Albumin/Globulin Ratio 0.3L Height (Feet): 5 Height (Inches): 4.00 Weight (Pounds): 89 General Appearance: lethargic EENT: other - pulled NGT out Cardiovascular: normal rate Respiratory/Chest: decreased breath sounds Abdomen: distended Objective no change William Blackwood MD Aug 09, 2019 10:31
[2019-08-09] MEDS ORDERED: HydrALAZINE 10mg Tab ORAL PRN ×2 (10:36→12:39)
[2019-08-09] MEDS ORDERED: Pantoprazole Inj IVP SCH (10:45)
--- NOTE | 2019-08-09 11:12 | Infectious Diseases Prog Note ---
Assessment/Plan Assessment/Plan antibiotics : meropenem A 1. klebsiella sepsis 2. e.coli UTI 3. right shoulder septic arthritis with staph aureus 4. renal failure 5. thrombocytopenia 6. diabetes mellitus 7. hypertension P 1. continue meropenem 4 more days 2. consider removal of catheter 3. will follow up cultures Subjective Constitutional: Denies: fever, chills Respiratory: Denies: shortness of breath, dry cough Gastrointestinal/Abdominal: Reports: vomiting; Denies: nausea, diarrhea Musculoskeletal: Denies: pain Allergies: Coded Allergies: VANCOMYCIN (Unverified Allergy, Unknown, 08/02/19) Objective Vital Signs Last 24 Hour Vital Signs Date Time Temp Pulse Resp B/P (MAP) Pulse Ox O2 Delivery O2 Flow Rate FiO2 08/09/19 09:00 Nasal Cannula 2.0 08/09/19 08:10 98.2 74 21 188/72 (110) 95 08/09/19 06:27 173/85 08/09/19 04:00 98.1 74 21 173/85 (114) 97 08/09/19 02:20 187/77 08/09/19 02:18 95 Nasal Cannula 2.0 28 08/09/19 00:00 97.6 77 20 187/77 (113) 91 08/08/19 21:00 Nasal Cannula 2.0 08/08/19 20:00 97.8 69 19 166/91 (116) 92 08/08/19 16:15 97.5 76 18 106/75 (85) 93 08/08/19 16:00 97.0 76 18 131/88 (102) 94 08/08/19 13:06 96 Nasal Cannula 2.0 28 08/08/19 12:02 97.0 76 18 131/88 (102) 94 Height (Feet): 5 Height (Inches): 4.00 Weight (Pounds): 89 Respiratory/Chest: lungs clear Cardiovascular: normal rate, regular rhythm, no gallop/murmur Abdomen: soft, non tender Extremities: no edema, other - right shoulder wound clean, right subclavian catheter Laboratory Tests Test 08/09/19 06:20 White Blood Count 8.3 K/UL (4.8-10.8) Red Blood Count 3.13 M/UL (4.20-5.40) L Hemoglobin 9.4 G/DL (12.0-16.0) L Hematocrit 27.1 % (37.0-47.0) L Mean Corpuscular Volume 86 FL (80-99) Mean Corpuscular Hemoglobin 29.9 PG (27.0-31.0) Mean Corpuscular Hemoglobin Concent 34.6 G/DL (32.0-36.0) Red Cell Distribution Width 16.8 % (11.6-14.8) H Platelet Count 36 K/UL (150-450) L Mean Platelet Volume 11.3 FL (6.5-10.1) H Neutrophils (%) (Auto) % (45.0-75.0) Lymphocytes (%) (Auto) % (20.0-45.0) Monocytes (%) (Auto) % (1.0-10.0) Eosinophils (%) (Auto) % (0.0-3.0) Basophils (%) (Auto) % (0.0-2.0) Neutrophils % (Manual) Pending Lymphocytes % (Manual) Pending Platelet Estimate Pending Platelet Morphology Pending Sodium Level 138 MMOL/L (136-145) Potassium Level 3.7 MMOL/L (3.5-5.1) Chloride Level 96 MMOL/L (98-107) L Carbon Dioxide Level 32 MMOL/L (21-32) Anion Gap 10 mmol/L (5-15) Blood Urea Nitrogen 36 mg/dL (7-18) H Creatinine 3.2 MG/DL (0.55-1.30) H Estimat Glomerular Filtration Rate 13.9 mL/min (>60) Glucose Level 94 MG/DL (74-106) Calcium Level 9.4 MG/DL (8.5-10.1) Phosphorus Level 3.8 MG/DL (2.5-4.9) Total Bilirubin 0.5 MG/DL (0.2-1.0) Aspartate Amino Transf (AST/SGOT) 30 U/L (15-37) Alanine Aminotransferase (ALT/SGPT) 8 U/L (12-78) L Alkaline Phosphatase 122 U/L (46-116) H C-Reactive Protein, Quantitative 14.2 mg/dL (0.00-0.90) H Pro-B-Type Natriuretic Peptide 11832 pg/mL (0-125) H Total Protein 5.9 G/DL (6.4-8.2) L Albumin 1.4 G/DL (3.4-5.0) L Globulin 4.5 g/dL Albumin/Globulin Ratio 0.3 (1.0-2.7) L Current Medications Medications (Trade) Dose Ordered Sig/Javier Route PRN Reason Start Time Stop Time Status Last Admin Dose Admin Clonidine HCl (Catapres TTS-3) 1 patch QWEEK TDERMAL 08/09/19 12:00 09/08/19 11:59 Dextrose (Dextrose 50%) 50 ml Q30M PRN IV Hypoglycemia 08/05/19 17:45 09/04/19 17:44 08/09/19 06:48 Hydralazine HCl (Apresoline) 10 mg Q4H PRN ORAL SBP above 160 08/09/19 10:36 09/08/19 10:35 Levothyroxine Sodium (Synthroid) 50 mcg DAILY IV 08/09/19 12:00 09/08/19 11:59 Meropenem 500 mg/ Sodium Chloride 55 ml @ 110 mls/hr EVERY 12 HOURS IVPB 08/04/19 21:00 08/14/19 20:59 08/09/19 09:29 Metoclopramide HCl (Reglan) 5 mg Q8H PRN IVP Nausea & Vomiting 08/08/19 08:00 09/07/19 07:59 08/09/19 09:29 Nitroglycerin (Nitro-Bid) 1 inch Q6HR TOPIC 08/09/19 12:00 09/08/19 01:59 Pantoprazole (Protonix) 40 mg EVERY 12 HOURS IVP 08/09/19 10:45 09/08/19 10:44 Melissa Solares MD Aug 09, 2019 11:12
[2019-08-09] MEDS ORDERED: Nitroglycerin 2% oint pkt TOPIC SCH (12:00)
[2019-08-09] MEDS ORDERED: Metoclopramide 10mg/2ml Inj IVP PRN (12:39)
[2019-08-09] MEDS: DiphenhydrAMINE 50mg/ml Inj IVP PRN (14:25)
[2019-08-09] MEDS ORDERED: Solu-MEDROL 125mg Inj IVP SCH (14:30)
--- NOTE | 2019-08-09 16:14 | General Progress Note ---
Assessment/Plan Problem List: (1) Failure to thrive (0-17) ICD Codes: R62.51 - Failure to thrive (0-17) SNOMED: 085505576 (2) Hypertensive kidney disease ICD Codes: I12.9 - Hypertensive chronic kidney disease with stage 1 through stage 4 chronic kidney disease, or unspecified chronic kidney disease SNOMED: 07266137 (3) Pneumonia ICD Codes: J18.9 - Pneumonia, unspecified organism SNOMED: 917882328 Qualifiers: Qualified Codes: J18.9 - Pneumonia, unspecified organism (4) ESRD (end stage renal disease) ICD Codes: N18.6 - End stage renal disease SNOMED: 18140461 (5) Septic arthritis ICD Codes: M00.9 - Pyogenic arthritis, unspecified SNOMED: 397422190 (6) Thrombocytopenia ICD Codes: D69.6 - Thrombocytopenia, unspecified SNOMED: 596644625 (7) Hypotension ICD Codes: I95.9 - Hypotension, unspecified SNOMED: 53467956 Qualifiers: Qualified Codes: I95.3 - Hypotension of hemodialysis (8) Malnutrition ICD Codes: E46 - Unspecified protein-calorie malnutrition SNOMED: 54623873 Status: not improved, unchanged, deteriorating Assessment/Plan: transfer to [facility] o2 resp carfe transfuse plts and rbcs as needed iv PPI iv abx dc perm cath when plts better. d/w family critical and guarded ok with gt if needed/stable iv and topical BP rx ordered. Subjective Constitutional: Reports: malaise, weakness HEENT: Reports: no symptoms Cardiovascular: Reports: no symptoms Respiratory: Reports: cough, sputum Gastrointestinal/Abdominal: Reports: difficulty swallowing Genitourinary: Reports: no symptoms Neurologic/Psychiatric: Reports: anxiety, depressed, emotional problems Endocrine: Reports: no symptoms Hematologic/Lymphatic: Reports: anemia Allergies: Coded Allergies: VANCOMYCIN (Unverified Allergy, Unknown, 08/02/19) All Systems: reviewed and negative except above Subjective vomiting blood. cannot replace ngt. low plts noted. hgn noted. more alert and agitated Objective Last 24 Hour Vital Signs Date Time Temp Pulse Resp B/P (MAP) Pulse Ox O2 Delivery O2 Flow Rate FiO2 08/09/19 16:00 40.0 08/09/19 16:00 Nasal Cannula 2.0 Nasal Cannula 2.0 08/09/19 15:30 40.0 08/09/19 15:00 75 19 125/53 (77) 51 08/09/19 15:00 79 22 125/53 (77) 89 08/09/19 14:27 194/82 08/09/19 14:20 15.0 08/09/19 14:15 93 Non-Rebreather 15.0 100 08/09/19 14:00 73 18 175/66 (102) 92 08/09/19 13:14 175/66 08/09/19 13:00 74 15 164/82 (109) 96 08/09/19 13:00 131/94 08/09/19 12:00 3.0 08/09/19 12:00 67 08/09/19 12:00 Nasal Cannula 2.0 Nasal Cannula 2.0 08/09/19 12:00 97.6 70 17 131/94 (106) 92 08/09/19 09:00 Nasal Cannula 2.0 08/09/19 08:10 98.2 74 21 188/72 (110) 95 08/09/19 06:27 173/85 08/09/19 04:00 98.1 74 21 173/85 (114) 97 08/09/19 02:20 187/77 08/09/19 02:18 95 Nasal Cannula 2.0 28 08/09/19 00:00 97.6 77 20 187/77 (113) 91 08/08/19 21:00 Nasal Cannula 2.0 08/08/19 20:00 97.8 69 19 166/91 (116) 92 08/08/19 16:15 97.5 76 18 106/75 (85) 93 Intake and Output 08/08/19 08/09/19 19:00 07:00 Intake Total 55 ml Balance 55 ml IV Total 55 ml # Voids 2 Laboratory Tests 08/09/19 06:20: White Blood Count 8.3, Red Blood Count 3.13L, Hemoglobin 9.4L, Hematocrit 27.1L , Mean Corpuscular Volume 86, Mean Corpuscular Hemoglobin 29.9, Mean Corpuscular Hemoglobin Concent 34.6, Red Cell Distribution Width 16.8H, Platelet Count 36L, Manual Platelet Count 38L, Mean Platelet Volume 11.3H, Neutrophils (%) (Auto) , Lymphocytes (%) (Auto) , Monocytes (%) (Auto) , Eosinophils (%) (Auto) , Basophils (%) (Auto) , Neutrophils % (Manual) 68, Lymphocytes % (Manual) 26, Monocytes % (Manual) 2, Eosinophils % (Manual) 0, Basophils % (Manual) 0, Band Neutrophils 4, Platelet Estimate DecreasedL, Platelet Morphology Normal, Hypochromasia 1+, Anisocytosis 1+, Sodium Level 138 , Potassium Level 3.7, Chloride Level 96L, Carbon Dioxide Level 32, Anion Gap 10 , Blood Urea Nitrogen 36H, Creatinine 3.2H, Estimat Glomerular Filtration Rate 13.9, Glucose Level 94, Calcium Level 9.4, Phosphorus Level 3.8, Total Bilirubin 0.5, Aspartate Amino Transf (AST/SGOT) 30, Alanine Aminotransferase ( ALT/SGPT) 8L, Alkaline Phosphatase 122H, C-Reactive Protein, Quantitative 14.2H , Pro-B-Type Natriuretic Peptide 65055U, Total Protein 5.9L, Albumin 1.4L, Globulin 4.5, Albumin/Globulin Ratio 0.3L 08/09/19 15:12: Arterial Blood pH 7.521H, Arterial Blood Partial Pressure CO2 44.0, Arterial Blood Partial Pressure O2 47.7*L, Arterial Blood HCO3 35.2H, Arterial Blood Oxygen Saturation 83.8*L, Arterial Blood Base Excess 11.3*H, Cuauhtemoc Test Positive Height (Feet): 5 Height (Inches): 4.00 Weight (Pounds): 89 Objective General Appearance: WD/WN, awake Neck: supple Cardiovascular: normal rate Respiratory/Chest: rhonchi - bilaterally Abdomen: normal bowel sounds, non tender, soft, no organomegaly Edema: no edema noted Arm (L), no edema noted Arm (R), no edema noted Leg (L), no edema noted Leg (R), no edema noted Pedal (L), no edema noted Pedal (R), no edema noted Generalized Neurologic: disoriented, unresponsive, aphasia Nate Beltran MD Aug 09, 2019 16:14
--- NOTE | 2019-08-09 16:24 | General Progress Note ---
Assessment/Plan Status: not improved, unchanged, deteriorating Assessment/Plan: GI Consult Dictated Will d/w family re PEG May need to be intubated for endoscopy Than you Cristy Elizondo MD Subjective Allergies: Coded Allergies: VANCOMYCIN (Unverified Allergy, Unknown, 08/02/19) Objective Last 24 Hour Vital Signs Date Time Temp Pulse Resp B/P (MAP) Pulse Ox O2 Delivery O2 Flow Rate FiO2 08/09/19 16:00 40.0 08/09/19 16:00 Nasal Cannula 2.0 Nasal Cannula 2.0 08/09/19 15:30 40.0 08/09/19 15:00 75 19 125/53 (77) 51 08/09/19 15:00 79 22 125/53 (77) 89 08/09/19 14:27 194/82 08/09/19 14:20 15.0 08/09/19 14:15 93 Non-Rebreather 15.0 100 08/09/19 14:00 73 18 175/66 (102) 92 08/09/19 13:14 175/66 08/09/19 13:00 74 15 164/82 (109) 96 08/09/19 13:00 131/94 08/09/19 12:00 3.0 08/09/19 12:00 67 08/09/19 12:00 Nasal Cannula 2.0 Nasal Cannula 2.0 08/09/19 12:00 97.6 70 17 131/94 (106) 92 08/09/19 09:00 Nasal Cannula 2.0 08/09/19 08:10 98.2 74 21 188/72 (110) 95 08/09/19 06:27 173/85 08/09/19 04:00 98.1 74 21 173/85 (114) 97 08/09/19 02:20 187/77 08/09/19 02:18 95 Nasal Cannula 2.0 28 08/09/19 00:00 97.6 77 20 187/77 (113) 91 08/08/19 21:00 Nasal Cannula 2.0 08/08/19 20:00 97.8 69 19 166/91 (116) 92 Intake and Output 08/08/19 08/09/19 18:59 06:59 Intake Total 70 ml Balance 70 ml IV Total 55 ml Tube Feeding 15 ml # Voids 2 Laboratory Tests 08/09/19 06:20: White Blood Count 8.3, Red Blood Count 3.13L, Hemoglobin 9.4L, Hematocrit 27.1L , Mean Corpuscular Volume 86, Mean Corpuscular Hemoglobin 29.9, Mean Corpuscular Hemoglobin Concent 34.6, Red Cell Distribution Width 16.8H, Platelet Count 36L, Manual Platelet Count 38L, Mean Platelet Volume 11.3H, Neutrophils (%) (Auto) , Lymphocytes (%) (Auto) , Monocytes (%) (Auto) , Eosinophils (%) (Auto) , Basophils (%) (Auto) , Neutrophils % (Manual) 68, Lymphocytes % (Manual) 26, Monocytes % (Manual) 2, Eosinophils % (Manual) 0, Basophils % (Manual) 0, Band Neutrophils 4, Platelet Estimate DecreasedL, Platelet Morphology Normal, Hypochromasia 1+, Anisocytosis 1+, Sodium Level 138 , Potassium Level 3.7, Chloride Level 96L, Carbon Dioxide Level 32, Anion Gap 10 , Blood Urea Nitrogen 36H, Creatinine 3.2H, Estimat Glomerular Filtration Rate 13.9, Glucose Level 94, Calcium Level 9.4, Phosphorus Level 3.8, Total Bilirubin 0.5, Aspartate Amino Transf (AST/SGOT) 30, Alanine Aminotransferase ( ALT/SGPT) 8L, Alkaline Phosphatase 122H, C-Reactive Protein, Quantitative 14.2H , Pro-B-Type Natriuretic Peptide 08753A, Total Protein 5.9L, Albumin 1.4L, Globulin 4.5, Albumin/Globulin Ratio 0.3L 08/09/19 15:12: Arterial Blood pH 7.521H, Arterial Blood Partial Pressure CO2 44.0, Arterial Blood Partial Pressure O2 47.7*L, Arterial Blood HCO3 35.2H, Arterial Blood Oxygen Saturation 83.8*L, Arterial Blood Base Excess 11.3*H, Cuauhtemoc Test Positive Height (Feet): 5 Height (Inches): 4.00 Weight (Pounds): 89 Cristy Elizondo MD Aug 09, 2019 16:24
--- NOTE | 2019-08-09 16:57 | Diagnostic Imaging Report ---
Indication: Dyspnea Comparison: 08/08/2019 A single view chest radiograph was obtained. Findings: Atelectasis involving the left lung has largely resolved. There may be some mild left basal residual atelectasis. There is evidence of a left pleural effusion. Small right pleural effusion suspected also. Interstitial edema noted bilaterally. Right permacath noted. Heart is mildly enlarged. The bones are osteopenic. There is an old fracture of the right humeral neck. IMPRESSION: Improved aeration of the left lung due to resolved atelectasis with some residual at the left lung base currently noted. CHF Trace bilateral pleural effusions suspected.
[2019-08-09] MEDS: Pantoprazole Inj IVP SCH (20:59)
--- NOTE | 2019-08-09 22:00 | Consultation ---
DATE OF CONSULTATION: 08/09/2019 GASTROENTEROLOGY CONSULTATION CONSULTING PHYSICIAN: Cristy Elizondo M.D. REFERRING PHYSICIAN: Abel Stubbs M.D. CHIEF COMPLAINT: I was asked to see this patient by Dr. Abel Stubbs and Dr. Nate Beltran for evaluation of dysphagia and gastrostomy tube placement. HISTORY OF PRESENT ILLNESS: The patient is an unfortunate 79-year-old English woman with dementia and other medical problems including end-stage renal disease, who was brought into the hospital due to hypotension. The patient is confused and unable to provide any information. Most of the information is only available from the chart and discussion with the patient's daughter. The patient has been noted to have difficulty swallowing and severe aspiration risk. She also has some degree of malnourishment. This consultation was therefore requested for gastrostomy tube placement for long-term enteral access. PAST MEDICAL HISTORY: History of cerebrovascular disease with dementia and agitation, end-stage renal disease, insulin-dependent diabetes mellitus, hypertension, history of cerebrovascular accident with aphasia and dysphagia, malnutrition, osteoarthritis, osteoporosis, degenerative disk disease, and anemia of chronic disease. FAMILY HISTORY: Noncontributory. SOCIAL HISTORY: The patient has a daughter who looks after her affairs. She has had no history of smoking or drinking. ALLERGIES: Vancomycin. REVIEW OF SYSTEMS: Otherwise negative. MEDICATIONS: See the chart list for details. PHYSICAL EXAMINATION: GENERAL: A debilitated woman seen in her room. HEENT: Normocephalic and atraumatic. Dentition is poor. NECK: Supple. CHEST: Reveals scattered rhonchi. CARDIOVASCULAR: Revealed regular rate. ABDOMEN: Soft and scaphoid without masses. EXTREMITIES: Revealed some contractures as well as decubitus ulcers. LABORATORY DATA: Noted. ASSESSMENT: This patient has significant cognitive decline and weakness. She has been felt to be high risk for aspiration based on speech therapy evaluation and is also malnourished and therefore a good candidate for gastrostomy tube placement for long-term enteral access and nutrition. Her respiratory status at this point is compromised and she may require intubation for the procedure. This was explained to the daughter, and the risks of the procedure itself were also explained to the daughter at length and all questions were answered. RECOMMENDATIONS: 1. Keep the patient NPO. 2. IV fluids. 3. Antibiotics. 4. Respiratory support and pulmonary toilet. 5. Endoscopy with gastrostomy tube placement later this week. Thank you for asking me to participate in the care of this patient. Cristy Elizondo M.D. DR: DONN JOB#: [id number] CC:
--- NOTE | 2019-08-09 22:31 | Progress Note ---
DATE: 08/09/2019 CARDIOLOGY PROGRESS NOTE SUBJECTIVE: The patient developed hematemesis. NG tube could not be replaced. OBJECTIVE: VITAL SIGNS: Blood pressure 125/53, heart rate 75, respirations 19. LUNGS: Bilateral breath sounds. CARDIAC: Regular rhythm and rate. Normal S1, S2. ABDOMEN: Soft. EXTREMITIES: Trace edema. PermCath site clean and dry. LABORATORY AND DIAGNOSTIC DATA: White count 8.3, hemoglobin 9.4, platelets 36,000. Sodium 138, potassium 3.7, bicarb 32, BUN 36, creatinine 3.2. Pro-natriuretic peptide 34,000. ABG 7.52, 44, 47. Chest x-ray reveals improved left lung aeration with resolution of atelectasis, mild congestive heart failure with bilateral small pleural effusions. IMPRESSION: 1. Respiratory failure. 2. Hypoxia. 3. Acute on chronic diastolic congestive heart failure. 4. GI bleeding. 5. Severe thrombocytopenia. 6. Anemia. 7. End-stage renal disease. PLAN: 1. Transfuse platelets. 2. No NG-tube placement for now. 3. No PermCath removal due to bleeding risk at this time. 4. Hemodialysis with ultrafiltration for volume management. 5. Aspiration precautions. Abel Stubbs M.D. DR: NESS JOB#: [id number] CC:
[2019-08-10] VITALS (24 sets, daily range): BP systolic 102–185; BP diastolic 32–88
[2019-08-10] MEDS: Nitroglycerin 2% oint pkt TOPIC SCH ×4 (01:06→18:20)
[2019-08-10 06:01] LABS: HEMATOCRIT 27.6 % (37.0-47.0); HEMOGLOBIN 9.4 G/DL (12.0-16.0); MEAN CORPUSCULAR VOLUME 88 FL (80-99); PLATELET COUNT 43 K/UL (150-450); RED BLOOD COUNT 3.15 M/UL (4.20-5.40); WHITE BLOOD COUNT 4.3 K/UL (4.8-10.8)
[2019-08-10 07:10] LABS: ALANINE AMINOTRANSFERASE 14 U/L (12-78); ALBUMIN 1.5 G/DL (3.4-5.0); ALBUMIN/GLOBULIN RATIO 0.3 (1.0-2.7); ALKALINE PHOSPHATASE 121 U/L (46-116); ANION GAP 10 mmol/L (5-15); ASPARTATE AMINO TRANSFERASE 26 U/L (15-37); BILIRUBIN,TOTAL 0.5 MG/DL (0.2-1.0); BLOOD UREA NITROGEN 47 mg/dL (7-18); CALCIUM 9.3 MG/DL (8.5-10.1); CARBON DIOXIDE 31 MMOL/L (21-32); CHLORIDE 100 MMOL/L (98-107); CREATININE 3.7 MG/DL (0.55-1.30); PHOSPHORUS 5.3 MG/DL (2.5-4.9); SODIUM 141 MMOL/L (136-145)
--- NOTE | 2019-08-10 07:33 | General Progress Note ---
Assessment/Plan Problem List: (1) Failure to thrive (0-17) ICD Codes: R62.51 - Failure to thrive (0-17) SNOMED: 205345681 (2) Hypertensive kidney disease ICD Codes: I12.9 - Hypertensive chronic kidney disease with stage 1 through stage 4 chronic kidney disease, or unspecified chronic kidney disease SNOMED: 94291884 (3) Pneumonia ICD Codes: J18.9 - Pneumonia, unspecified organism SNOMED: 261193545 Qualifiers: Qualified Codes: J18.9 - Pneumonia, unspecified organism (4) ESRD (end stage renal disease) ICD Codes: N18.6 - End stage renal disease SNOMED: 84751240 (5) Septic arthritis ICD Codes: M00.9 - Pyogenic arthritis, unspecified SNOMED: 865590292 (6) Thrombocytopenia ICD Codes: D69.6 - Thrombocytopenia, unspecified SNOMED: 764196098 (7) Hypotension ICD Codes: I95.9 - Hypotension, unspecified SNOMED: 78517257 Qualifiers: Qualified Codes: I95.3 - Hypotension of hemodialysis (8) Malnutrition ICD Codes: E46 - Unspecified protein-calorie malnutrition SNOMED: 95208344 Status: not improved, unchanged, deteriorating Assessment/Plan: icu care o2 resp rx/suctioning transfuse plts and rbcs as needed iv PPI iv abx dc perm cath when plts better. bailey for urinary retention iv bp rx d/w family critical and guarded gt when stable Subjective ROS Limited/Unobtainable: Yes Constitutional: Reports: malaise, weakness HEENT: Reports: no symptoms Cardiovascular: Reports: edema Respiratory: Reports: cough, shortness of breath, sputum Gastrointestinal/Abdominal: Reports: difficulty swallowing, poor appetite Genitourinary: Reports: no symptoms Neurologic/Psychiatric: Reports: pre-existing deficit Endocrine: Reports: no symptoms Hematologic/Lymphatic: Reports: anemia Allergies: Coded Allergies: VANCOMYCIN (Unverified Allergy, Unknown, 08/02/19) All Systems: reviewed and negative except above Subjective transferred to icu for vomiting blood, resp distress and htn emergency. suctioned several times- bloody secretions. s/p 1 unit plts. h/h stable so far. on facemask. cxr with improved aeration. bailey placed for urinary retention. still has perm cath Objective Last 24 Hour Vital Signs Date Time Temp Pulse Resp B/P (MAP) Pulse Ox O2 Delivery O2 Flow Rate FiO2 08/10/19 07:00 59 9 120/57 (78) 100 08/10/19 06:00 63 13 144/60 (88) 100 08/10/19 05:53 141/64 08/10/19 05:30 Simple Mask 3.0 Simple Mask 3.0 Simple Mask 3.0 08/10/19 05:00 62 14 141/64 (89) 100 08/10/19 04:01 Simple Mask 3.0 Simple Mask 3.0 Simple Mask 3.0 08/10/19 04:00 65 08/10/19 04:00 97.5 65 11 138/67 (90) 100 08/10/19 03:00 62 10 145/76 (99) 100 08/10/19 02:00 59 10 157/81 (106) 100 08/10/19 01:14 185/88 08/10/19 01:06 158/70 08/10/19 01:00 69 14 185/88 (120) 100 08/10/19 00:00 Simple Mask 3.0 Simple Mask 3.0 Simple Mask 3.0 08/10/19 00:00 97.0 74 17 158/70 (99) 100 08/10/19 00:00 66 08/09/19 23:00 66 14 153/68 (96) 100 08/09/19 22:00 63 12 149/74 (99) 100 08/09/19 21:00 69 10 182/70 (107) 100 08/09/19 20:00 70 08/09/19 20:00 Simple Mask 3.0 Simple Mask 3.0 Simple Mask 3.0 08/09/19 20:00 97.5 67 8 146/63 (90) 100 08/09/19 19:00 96 Non-Rebreather 15.0 100 08/09/19 19:00 72 9 156/68 (97) 100 08/09/19 18:00 71 11 134/55 (81) 100 08/09/19 17:30 Venturi Mask 14.0 Venturi Mask 14.0 08/09/19 17:30 14.0 55 08/09/19 17:00 77 26 157/71 (99) 99 08/09/19 17:00 168/76 08/09/19 16:55 168/76 08/09/19 16:23 75 17 173/74 (107) 100 08/09/19 16:17 75 19 175/76 (109) 100 08/09/19 16:08 75 16 164/89 (114) 100 08/09/19 16:00 15.0 08/09/19 16:00 97.5 76 16 172/67 (102) 100 08/09/19 16:00 Non-Rebreather 15.0 Non-Rebreather 15.0 08/09/19 16:00 80 08/09/19 15:30 15.0 08/09/19 15:00 75 19 125/53 (77) 51 08/09/19 15:00 79 22 125/53 (77) 89 08/09/19 14:27 194/82 08/09/19 14:20 15.0 08/09/19 14:15 93 Non-Rebreather 15.0 100 08/09/19 14:00 73 18 175/66 (102) 92 08/09/19 13:14 175/66 08/09/19 13:00 74 15 164/82 (109) 96 08/09/19 13:00 131/94 08/09/19 12:00 3.0 08/09/19 12:00 67 08/09/19 12:00 Simple Mask 3.0 Simple Mask 3.0 08/09/19 12:00 97.6 70 17 131/94 (106) 92 08/09/19 09:00 Nasal Cannula 2.0 08/09/19 08:10 98.2 74 21 188/72 (110) 95 Intake and Output 08/09/19 08/10/19 19:00 07:00 Intake Total 300 ml 55 ml Output Total 500 ml Balance 300 ml -445 ml IV Total 55 ml Blood Product 300 ml Output Urine Total 500 ml # Voids 1 Laboratory Tests 08/09/19 15:12: Arterial Blood pH 7.521H, Arterial Blood Partial Pressure CO2 44.0, Arterial Blood Partial Pressure O2 47.7*L, Arterial Blood HCO3 35.2H, Arterial Blood Oxygen Saturation 83.8*L, Arterial Blood Base Excess 11.3*H, Cuauhtemoc Test Positive 08/10/19 05:10: White Blood Count 4.3L, Red Blood Count 3.15L, Hemoglobin 9.4L, Hematocrit 27.6L , Mean Corpuscular Volume 88, Mean Corpuscular Hemoglobin 29.9, Mean Corpuscular Hemoglobin Concent 34.0, Red Cell Distribution Width 16.0H, Platelet Count 43L, Mean Platelet Volume 9.4, Neutrophils (%) (Auto) , Lymphocytes (%) (Auto) , Monocytes (%) (Auto) , Eosinophils (%) (Auto) , Basophils (%) (Auto) , Neutrophils % (Manual) [Pending], Lymphocytes % (Manual) [Pending], Platelet Estimate [Pending], Platelet Morphology [Pending], Sodium Level 141, Potassium Level 4.0, Chloride Level 100, Carbon Dioxide Level 31, Anion Gap 10, Blood Urea Nitrogen 47H, Creatinine 3.7H, Estimat Glomerular Filtration Rate 11.8, Glucose Level 125H, Lactic Acid Level [Pending], Uric Acid 5.9, Calcium Level 9.3, Phosphorus Level 5.3H, Magnesium Level 2.2, Total Bilirubin 0.5, Aspartate Amino Transf (AST/SGOT) 26, Alanine Aminotransferase ( ALT/SGPT) 14, Alkaline Phosphatase 121H, Troponin I 0.004, C-Reactive Protein, Quantitative 12.2H, Pro-B-Type Natriuretic Peptide 79844V, Total Protein 6.0L, Albumin 1.5L, Globulin 4.5, Albumin/Globulin Ratio 0.3L Height (Feet): 5 Height (Inches): 4.00 Weight (Pounds): 96 Objective General Appearance: WD/WN, awake Neck: supple Cardiovascular: normal rate Respiratory/Chest: rhonchi - bilaterally Abdomen: normal bowel sounds, non tender, soft, no organomegaly Edema: no edema noted Arm (L), no edema noted Arm (R), no edema noted Leg (L), no edema noted Leg (R), no edema noted Pedal (L), no edema noted Pedal (R), no edema noted Generalized Neurologic: disoriented, unresponsive, aphasia Nate Beltran MD Aug 10, 2019 07:33
[2019-08-10] MEDS: Meropenem 500 MG in NS 55 ML IVPB SCH ×2 (09:21→21:43)
[2019-08-10] MEDS: Pantoprazole Inj IVP SCH ×2 (09:21→21:43)
--- NOTE | 2019-08-10 10:31 | Diagnostic Imaging Report ---
Indication:Leg pain and swelling Technique: Grayscale and duplex Doppler imaging of the veins in both lower extremities performed in real time utilizing compression and augmentation. Comparison: None Findings: Duplex Doppler interrogation of the veins in both lower extremity is performed from the common femoral vein to the popliteal vein. Normal venous compressibility demonstrated throughout. No thrombus identified. Waveform analysis shows good respiratory phasicity and augmentation. IMPRESSION: No evidence of deep venous thrombosis involving the lower extremities.
--- NOTE | 2019-08-10 10:31 | Infectious Diseases Prog Note ---
Assessment/Plan Assessment/Plan antibiotics : meropenem A 1. klebsiella sepsis 2. e.coli UTI 3. right shoulder septic arthritis with staph aureus 4. renal failure 5. thrombocytopenia 6. diabetes mellitus 7. hypertension 8. GI bleeding P 1. continue meropenem 3 more days 2. will follow up cultures Subjective ROS Limited/Unobtainable: Yes Allergies: Coded Allergies: VANCOMYCIN (Unverified Allergy, Unknown, 08/02/19) Objective Vital Signs Last 24 Hour Vital Signs Date Time Temp Pulse Resp B/P (MAP) Pulse Ox O2 Delivery O2 Flow Rate FiO2 08/10/19 09:00 67 11 111/57 (75) 60 08/10/19 08:00 61 11 138/70 (92) 100 08/10/19 07:00 59 9 120/57 (78) 100 08/10/19 06:00 63 13 144/60 (88) 100 08/10/19 05:53 141/64 08/10/19 05:30 Simple Mask 3.0 Simple Mask 3.0 Simple Mask 3.0 08/10/19 05:00 62 14 141/64 (89) 100 08/10/19 04:01 Simple Mask 3.0 Simple Mask 3.0 Simple Mask 3.0 08/10/19 04:00 65 08/10/19 04:00 97.5 65 11 138/67 (90) 100 08/10/19 03:00 62 10 145/76 (99) 100 08/10/19 02:00 59 10 157/81 (106) 100 08/10/19 01:14 185/88 08/10/19 01:06 158/70 08/10/19 01:00 69 14 185/88 (120) 100 08/10/19 00:00 Simple Mask 3.0 Simple Mask 3.0 Simple Mask 3.0 08/10/19 00:00 97.0 74 17 158/70 (99) 100 08/10/19 00:00 66 08/09/19 23:00 66 14 153/68 (96) 100 08/09/19 22:00 63 12 149/74 (99) 100 08/09/19 21:00 69 10 182/70 (107) 100 08/09/19 20:00 70 08/09/19 20:00 Simple Mask 3.0 Simple Mask 3.0 Simple Mask 3.0 08/09/19 20:00 97.5 67 8 146/63 (90) 100 08/09/19 19:00 96 Non-Rebreather 15.0 100 08/09/19 19:00 72 9 156/68 (97) 100 08/09/19 18:00 71 11 134/55 (81) 100 08/09/19 17:30 Venturi Mask 14.0 Venturi Mask 14.0 08/09/19 17:30 14.0 55 08/09/19 17:00 77 26 157/71 (99) 99 08/09/19 17:00 168/76 08/09/19 16:55 168/76 08/09/19 16:23 75 17 173/74 (107) 100 08/09/19 16:17 75 19 175/76 (109) 100 08/09/19 16:08 75 16 164/89 (114) 100 08/09/19 16:00 15.0 08/09/19 16:00 97.5 76 16 172/67 (102) 100 08/09/19 16:00 Non-Rebreather 15.0 Non-Rebreather 15.0 08/09/19 16:00 80 08/09/19 15:30 15.0 08/09/19 15:00 75 19 125/53 (77) 51 08/09/19 15:00 79 22 125/53 (77) 89 08/09/19 14:27 194/82 08/09/19 14:20 15.0 08/09/19 14:15 93 Non-Rebreather 15.0 100 08/09/19 14:00 73 18 175/66 (102) 92 08/09/19 13:14 175/66 08/09/19 13:00 74 15 164/82 (109) 96 08/09/19 13:00 131/94 08/09/19 12:00 3.0 08/09/19 12:00 67 08/09/19 12:00 Simple Mask 3.0 Simple Mask 3.0 08/09/19 12:00 97.6 70 17 131/94 (106) 92 Height (Feet): 5 Height (Inches): 4.00 Weight (Pounds): 96 Respiratory/Chest: lungs clear Cardiovascular: normal rate, regular rhythm, no gallop/murmur Abdomen: soft, non tender Extremities: no edema, other - right subclavian catheter Laboratory Tests Test 08/09/19 15:12 08/10/19 05:10 Arterial Blood pH 7.521 (7.350-7.450) Arterial Blood Partial Pressure CO2 44.0 mmHg (35.0-45.0) Arterial Blood Partial Pressure O2 47.7 mmHg (75.0-100.0) Arterial Blood HCO3 35.2 mmol/L (22.0-26.0) H Arterial Blood Oxygen Saturation 83.8 % (95-100) *L Arterial Blood Base Excess 11.3 (-2-2) *H Cuauhtemoc Test Positive White Blood Count 4.3 K/UL (4.8-10.8) L Red Blood Count 3.15 M/UL (4.20-5.40) L Hemoglobin 9.4 G/DL (12.0-16.0) L Hematocrit 27.6 % (37.0-47.0) L Mean Corpuscular Volume 88 FL (80-99) Mean Corpuscular Hemoglobin 29.9 PG (27.0-31.0) Mean Corpuscular Hemoglobin Concent 34.0 G/DL (32.0-36.0) Red Cell Distribution Width 16.0 % (11.6-14.8) H Platelet Count 43 K/UL (150-450) L Mean Platelet Volume 9.4 FL (6.5-10.1) Neutrophils (%) (Auto) % (45.0-75.0) Lymphocytes (%) (Auto) % (20.0-45.0) Monocytes (%) (Auto) % (1.0-10.0) Eosinophils (%) (Auto) % (0.0-3.0) Basophils (%) (Auto) % (0.0-2.0) Differential Total Cells Counted 100 Neutrophils % (Manual) 67 % (45-75) Lymphocytes % (Manual) 30 % (20-45) Monocytes % (Manual) 3 % (1-10) Eosinophils % (Manual) 0 % (0-3) Basophils % (Manual) 0 % (0-2) Band Neutrophils 0 % (0-8) Platelet Estimate Decreased L Platelet Morphology Normal Anisocytosis 1+ Sodium Level 141 MMOL/L (136-145) Potassium Level 4.0 MMOL/L (3.5-5.1) Chloride Level 100 MMOL/L (98-107) Carbon Dioxide Level 31 MMOL/L (21-32) Anion Gap 10 mmol/L (5-15) Blood Urea Nitrogen 47 mg/dL (7-18) H Creatinine 3.7 MG/DL (0.55-1.30) H Estimat Glomerular Filtration Rate 11.8 mL/min (>60) Glucose Level 125 MG/DL (74-106) H Lactic Acid Level 0.70 mmol/L (0.4-2.0) Uric Acid 5.9 MG/DL (2.6-7.2) Calcium Level 9.3 MG/DL (8.5-10.1) Phosphorus Level 5.3 MG/DL (2.5-4.9) H Magnesium Level 2.2 MG/DL (1.8-2.4) Total Bilirubin 0.5 MG/DL (0.2-1.0) Aspartate Amino Transf (AST/SGOT) 26 U/L (15-37) Alanine Aminotransferase (ALT/SGPT) 14 U/L (12-78) Alkaline Phosphatase 121 U/L (46-116) H Troponin I 0.004 ng/mL (0.000-0.056) C-Reactive Protein, Quantitative 12.2 mg/dL (0.00-0.90) H Pro-B-Type Natriuretic Peptide 07282 pg/mL (0-125) H Total Protein 6.0 G/DL (6.4-8.2) L Albumin 1.5 G/DL (3.4-5.0) L Globulin 4.5 g/dL Albumin/Globulin Ratio 0.3 (1.0-2.7) L Current Medications Medications (Trade) Dose Ordered Sig/Javier Route PRN Reason Start Time Stop Time Status Last Admin Dose Admin Clonidine HCl (Catapres TTS-3) 1 patch QWEEK TDERMAL 08/09/19 13:00 09/08/19 12:59 08/09/19 13:14 Dextrose (Dextrose 50%) 50 ml Q30M PRN IV Hypoglycemia 08/09/19 12:45 09/04/19 17:44 Diphenhydramine HCl (Benadryl) 50 mg Q4H PRN IVP Itching 08/09/19 14:30 09/08/19 14:29 08/09/19 14:25 Hydralazine HCl (Apresoline) 10 mg Q4H PRN IV SBP>160 08/09/19 14:30 09/08/19 14:19 08/10/19 01:14 Hydralazine HCl (Apresoline) 10 mg Q4H PRN ORAL SBP above 160 08/09/19 12:39 09/08/19 12:38 Levothyroxine Sodium (Synthroid) 50 mcg DAILY IV 08/10/19 09:00 09/08/19 11:59 08/10/19 09:22 Meropenem 500 mg/ Sodium Chloride 55 ml @ 110 mls/hr EVERY 12 HOURS IVPB 08/09/19 21:00 08/14/19 20:59 08/10/19 09:21 Metoclopramide HCl (Reglan) 5 mg Q8H PRN IVP Nausea & Vomiting 08/09/19 12:39 09/08/19 12:38 Nitroglycerin (Nitro-Bid) 1 inch Q6HR TOPIC 08/09/19 12:39 09/08/19 12:38 08/10/19 05:53 Pantoprazole (Protonix) 40 mg EVERY 12 HOURS IVP 08/09/19 21:00 09/08/19 10:44 08/10/19 09:21 Melissa Solares MD Aug 10, 2019 10:31
--- NOTE | 2019-08-10 11:14 | Nephrology Progress Note ---
Assessment/Plan Problem List: (1) ESRD (end stage renal disease) on dialysis (2) Malnutrition (3) Anemia in CKD (chronic kidney disease) (4) Hypotension (5) Thrombocytopenia (6) Sepsis Assessment: klebsiella in blood Assessment -Early sepsis with shock. -Healthcare-associated pneumonia. -Severe protein-calorie malnutrition. -Thrombocytopenia. - End-stage renal disease. - History of hypertension. - Bradycardia. - HypoThyroid Plan permacath not removed by IR , citing low platelets Patient has hematemesis Plan is transfuse platelets and remove cath meds IV as possible transfused HD 08/07 remove dialysis cath: Klebsiella in blood BC in am NGT feeding check labs BS control keep BP and BS in check Inflammatory markers per orders Subjective ROS Limited/Unobtainable: No Constitutional: Reports: malaise, weakness Objective Objective Last 24 Hour Vital Signs Date Time Temp Pulse Resp B/P (MAP) Pulse Ox O2 Delivery O2 Flow Rate FiO2 08/10/19 09:00 67 11 111/57 (75) 60 08/10/19 08:00 61 11 138/70 (92) 100 08/10/19 07:00 59 9 120/57 (78) 100 08/10/19 06:00 63 13 144/60 (88) 100 08/10/19 05:53 141/64 08/10/19 05:30 Simple Mask 3.0 Simple Mask 3.0 Simple Mask 3.0 08/10/19 05:00 62 14 141/64 (89) 100 08/10/19 04:01 Simple Mask 3.0 Simple Mask 3.0 Simple Mask 3.0 08/10/19 04:00 65 08/10/19 04:00 97.5 65 11 138/67 (90) 100 08/10/19 03:00 62 10 145/76 (99) 100 08/10/19 02:00 59 10 157/81 (106) 100 08/10/19 01:14 185/88 08/10/19 01:06 158/70 08/10/19 01:00 69 14 185/88 (120) 100 08/10/19 00:00 Simple Mask 3.0 Simple Mask 3.0 Simple Mask 3.0 08/10/19 00:00 97.0 74 17 158/70 (99) 100 08/10/19 00:00 66 08/09/19 23:00 66 14 153/68 (96) 100 08/09/19 22:00 63 12 149/74 (99) 100 08/09/19 21:00 69 10 182/70 (107) 100 08/09/19 20:00 70 08/09/19 20:00 Simple Mask 3.0 Simple Mask 3.0 Simple Mask 3.0 08/09/19 20:00 97.5 67 8 146/63 (90) 100 08/09/19 19:00 96 Non-Rebreather 15.0 100 08/09/19 19:00 72 9 156/68 (97) 100 08/09/19 18:00 71 11 134/55 (81) 100 08/09/19 17:30 Venturi Mask 14.0 Venturi Mask 14.0 08/09/19 17:30 14.0 55 08/09/19 17:00 77 26 157/71 (99) 99 08/09/19 17:00 168/76 08/09/19 16:55 168/76 08/09/19 16:23 75 17 173/74 (107) 100 08/09/19 16:17 75 19 175/76 (109) 100 08/09/19 16:08 75 16 164/89 (114) 100 08/09/19 16:00 15.0 08/09/19 16:00 97.5 76 16 172/67 (102) 100 08/09/19 16:00 Non-Rebreather 15.0 Non-Rebreather 15.0 08/09/19 16:00 80 08/09/19 15:30 15.0 08/09/19 15:00 75 19 125/53 (77) 51 08/09/19 15:00 79 22 125/53 (77) 89 08/09/19 14:27 194/82 08/09/19 14:20 15.0 08/09/19 14:15 93 Non-Rebreather 15.0 100 08/09/19 14:00 73 18 175/66 (102) 92 08/09/19 13:14 175/66 08/09/19 13:00 74 15 164/82 (109) 96 08/09/19 13:00 131/94 08/09/19 12:00 3.0 08/09/19 12:00 67 08/09/19 12:00 Simple Mask 3.0 Simple Mask 3.0 08/09/19 12:00 97.6 70 17 131/94 (106) 92 Intake and Output 08/09/19 08/10/19 19:00 07:00 Intake Total 300 ml 55 ml Output Total 500 ml Balance 300 ml -445 ml IV Total 55 ml Blood Product 300 ml Output Urine Total 500 ml # Voids 1 Laboratory Tests 08/09/19 15:12: Arterial Blood pH 7.521H, Arterial Blood Partial Pressure CO2 44.0, Arterial Blood Partial Pressure O2 47.7*L, Arterial Blood HCO3 35.2H, Arterial Blood Oxygen Saturation 83.8*L, Arterial Blood Base Excess 11.3*H, Cuauhtemoc Test Positive 08/10/19 05:10: White Blood Count 4.3L, Red Blood Count 3.15L, Hemoglobin 9.4L, Hematocrit 27.6L , Mean Corpuscular Volume 88, Mean Corpuscular Hemoglobin 29.9, Mean Corpuscular Hemoglobin Concent 34.0, Red Cell Distribution Width 16.0H, Platelet Count 43L, Mean Platelet Volume 9.4, Neutrophils (%) (Auto) , Lymphocytes (%) (Auto) , Monocytes (%) (Auto) , Eosinophils (%) (Auto) , Basophils (%) (Auto) , Differential Total Cells Counted 100, Neutrophils % ( Manual) 67, Lymphocytes % (Manual) 30, Monocytes % (Manual) 3, Eosinophils % ( Manual) 0, Basophils % (Manual) 0, Band Neutrophils 0, Platelet Estimate DecreasedL, Platelet Morphology Normal, Anisocytosis 1+, Sodium Level 141, Potassium Level 4.0, Chloride Level 100, Carbon Dioxide Level 31, Anion Gap 10, Blood Urea Nitrogen 47H, Creatinine 3.7H, Estimat Glomerular Filtration Rate 11.8, Glucose Level 125H, Lactic Acid Level 0.70, Uric Acid 5.9, Calcium Level 9.3, Phosphorus Level 5.3H, Magnesium Level 2.2, Total Bilirubin 0.5, Aspartate Amino Transf (AST/SGOT) 26, Alanine Aminotransferase (ALT/SGPT) 14, Alkaline Phosphatase 121H, Troponin I 0.004, C-Reactive Protein, Quantitative 12.2H, Pro- B-Type Natriuretic Peptide 92773L, Total Protein 6.0L, Albumin 1.5L, Globulin 4.5, Albumin/Globulin Ratio 0.3L Height (Feet): 5 Height (Inches): 4.00 Weight (Pounds): 96 General Appearance: no apparent distress, lethargic Cardiovascular: normal rate Respiratory/Chest: decreased breath sounds Abdomen: soft Objective no change William Blackwood MD Aug 10, 2019 11:14
--- NOTE | 2019-08-10 18:18 | General Progress Note ---
Assessment/Plan Status: not improved, unchanged, deteriorating Assessment/Plan: Assessment - Resp failure - thrombocytopenia - Renal failure - aspiration risk - anemia Recommendations - hold off on further NGT attempts - Consider heme opinion re low platelets - IVF - can place PEG once respiratory/Heme issues corrected Subjective Allergies: Coded Allergies: VANCOMYCIN (Unverified Allergy, Unknown, 08/02/19) Subjective above noted seen in ICU d/w RN and PMD NGT attempt resulted in nose bleed on FM O@, but appears comfortable Objective Last 24 Hour Vital Signs Date Time Temp Pulse Resp B/P (MAP) Pulse Ox O2 Delivery O2 Flow Rate FiO2 08/10/19 18:00 54 16 158/54 (88) 96 08/10/19 17:00 55 16 162/54 (90) 96 08/10/19 16:00 97.0 55 13 158/56 (90) 96 08/10/19 16:00 Simple Mask 3.0 Simple Mask 3.0 Simple Mask 3.0 08/10/19 16:00 54 08/10/19 15:00 56 10 133/45 (74) 98 08/10/19 14:00 55 9 148/51 (83) 99 08/10/19 13:29 171/93 08/10/19 13:00 58 11 175/76 (109) 99 08/10/19 12:00 Simple Mask 3.0 Simple Mask 3.0 Simple Mask 3.0 08/10/19 12:00 55 08/10/19 12:00 97.4 55 9 116/75 (89) 98 08/10/19 12:00 14.0 55 08/10/19 11:44 96 Venturi Mask 14.0 55 08/10/19 11:00 63 12 139/52 (81) 98 08/10/19 10:45 14.0 55 08/10/19 10:00 56 10 102/32 (55) 99 08/10/19 09:30 15.0 08/10/19 09:00 67 11 111/57 (75) 60 08/10/19 08:00 65 08/10/19 08:00 61 11 138/70 (92) 100 08/10/19 08:00 3.0 08/10/19 08:00 Simple Mask 3.0 Simple Mask 3.0 Simple Mask 3.0 2/26/20 07:00 59 9 120/57 (78) 100 08/10/19 06:00 63 13 144/60 (88) 100 08/10/19 05:53 141/64 08/10/19 05:30 Simple Mask 3.0 Simple Mask 3.0 Simple Mask 3.0 08/10/19 05:00 62 14 141/64 (89) 100 08/10/19 04:01 Simple Mask 3.0 Simple Mask 3.0 Simple Mask 3.0 08/10/19 04:00 65 08/10/19 04:00 97.5 65 11 138/67 (90) 100 08/10/19 03:00 62 10 145/76 (99) 100 08/10/19 02:00 59 10 157/81 (106) 100 08/10/19 01:14 185/88 08/10/19 01:06 158/70 08/10/19 01:00 69 14 185/88 (120) 100 08/10/19 00:00 Simple Mask 3.0 Simple Mask 3.0 Simple Mask 3.0 08/10/19 00:00 97.0 74 17 158/70 (99) 100 08/10/19 00:00 66 08/09/19 23:00 66 14 153/68 (96) 100 08/09/19 22:00 63 12 149/74 (99) 100 08/09/19 21:00 69 10 182/70 (107) 100 08/09/19 20:00 70 08/09/19 20:00 Simple Mask 3.0 Simple Mask 3.0 Simple Mask 3.0 08/09/19 20:00 97.5 67 8 146/63 (90) 100 08/09/19 19:00 96 Non-Rebreather 15.0 100 08/09/19 19:00 72 9 156/68 (97) 100 Intake and Output 08/09/19 08/10/19 19:00 07:00 Intake Total 300 ml 55 ml Output Total 500 ml Balance 300 ml -445 ml IV Total 55 ml Blood Product 300 ml Output Urine Total 500 ml # Voids 1 Laboratory Tests 08/10/19 05:10: White Blood Count 4.3L, Red Blood Count 3.15L, Hemoglobin 9.4L, Hematocrit 27.6L , Mean Corpuscular Volume 88, Mean Corpuscular Hemoglobin 29.9, Mean Corpuscular Hemoglobin Concent 34.0, Red Cell Distribution Width 16.0H, Platelet Count 43L, Mean Platelet Volume 9.4, Neutrophils (%) (Auto) , Lymphocytes (%) (Auto) , Monocytes (%) (Auto) , Eosinophils (%) (Auto) , Basophils (%) (Auto) , Differential Total Cells Counted 100, Neutrophils % ( Manual) 67, Lymphocytes % (Manual) 30, Monocytes % (Manual) 3, Eosinophils % ( Manual) 0, Basophils % (Manual) 0, Band Neutrophils 0, Platelet Estimate DecreasedL, Platelet Morphology Normal, Anisocytosis 1+, Sodium Level 141, Potassium Level 4.0, Chloride Level 100, Carbon Dioxide Level 31, Anion Gap 10, Blood Urea Nitrogen 47H, Creatinine 3.7H, Estimat Glomerular Filtration Rate 11.8, Glucose Level 125H, Lactic Acid Level 0.70, Uric Acid 5.9, Calcium Level 9.3, Phosphorus Level 5.3H, Magnesium Level 2.2, Total Bilirubin 0.5, Aspartate Amino Transf (AST/SGOT) 26, Alanine Aminotransferase (ALT/SGPT) 14, Alkaline Phosphatase 121H, Troponin I 0.004, C-Reactive Protein, Quantitative 12.2H, Pro- B-Type Natriuretic Peptide 10224H, Total Protein 6.0L, Albumin 1.5L, Globulin 4.5, Albumin/Globulin Ratio 0.3L Height (Feet): 5 Height (Inches): 4.00 Weight (Pounds): 98 Objective Debilitated WW NCAT supple scattered ronchi RR abd soft ND NT Cristy Elizondo MD Aug 10, 2019 18:18
--- NOTE | 2019-08-10 20:11 | Consultation ---
History of Present Illness General Date patient seen: Aug 10, 2019 Chief Complaint: Generalized Weakness Present Illness HPI 79F well known to me from prior admission and care / surgery currently admitted for 8 days now in ICU. multiple medical comorbidities correction resident. no able to provide history given mental status. concerns for wounds given history. surgery called to evaluate and assist with care. patient seen, chart reviewed, patient examined. Allergies: Coded Allergies: VANCOMYCIN (Unverified Allergy, Unknown, 08/02/19) Medication History Scheduled Amlodipine Besylate (Norvasc), 5 MG ORAL BID Carvedilol* (Carvedilol*), 6.25 MG ORAL BID, (Reported) Doxazosin Mesylate (Doxazosin Mesylate), 2 MG ORAL Q12HR, (Reported) Hydralazine Hcl* (Hydralazine Hcl*), 100 MG ORAL EVERY 8 HOURS, (Reported) Isosorbide Mononitrate (Isosorbide Mononitrate Er), 60 MG PO DAILY, (Reported) Levothyroxine Sodium (Synthroid), 50 MCG ORAL DAILY@0630 Linezolid* (Zyvox*), 600 MG ORAL EVERY 12 HOURS, (Reported) Lorazepam* (Ativan*), 1 MG ORAL DIALYSIS DAYS, (Reported) Olanzapine (Olanzapine), 2.5 MG ORAL TID Pantoprazole Sodium (Protonix), 40 MG PO DAILY, (Reported) Sevelamer Carbonate* (Renvela*), 1,600 MG ORAL THREE TIMES A DAY, (Reported) Vitamin B Cmplx/Vit C/Folic AC (Nephro-Milla Tablet), 1 TAB ORAL DAILY, (Reported ) Scheduled PRN Acetaminophen* (Acetaminophen 325MG Tablet*), 650 MG ORAL Q4H PRN for For Pain, (Reported) Bisacodyl (Bisacodyl), 10 MG RC DAILY PRN for Constipation, (Reported) Hydralazine Hcl* (Hydralazine Hcl*), 25 MG ORAL Q6HR PRN for SBP > 160, ( Reported) Hydrocodone Bit/Acetaminophen 10-325* (Hydrocodon-Acetaminophn 10-325*), 1 TAB ORAL Q4H PRN for For Pain, (Reported) Hydroxyzine Hcl (Hydroxyzine Hcl), 10 MG PO Q6HR PRN for Itching, (Reported) Magnesium Hydroxide* (Milk Of Magnesia*), 30 ML ORAL DAILY PRN for Constipation, (Reported) Patient History Limited by: medical condition History Provided By: Medical Record, PMD Healthcare decision maker N Resuscitation status Full Code Advanced Directive on File Past Medical/Surgical History Past Medical/Surgical History: (1) Urinary retention (2) Diabetes mellitus (3) Anemia due to acute blood loss (4) Wound, open, hip or thigh with complication (5) Abscess of right hip (6) Renal failure (ARF), acute on chronic (7) Coag negative Staphylococcus bacteremia (8) Staphylococcus aureus bacteremia (9) possible septic arthritis (10) ESRD (end stage renal disease) on dialysis (11) Malnutrition (12) Hypotension (13) Anemia in CKD (chronic kidney disease) (14) Thrombocytopenia (15) Septic arthritis (16) ESRD (end stage renal disease) (17) Pneumonia (18) Hypertensive kidney disease (19) Failure to thrive (0-17) (20) Sepsis Review of Systems ROS Narrative unable to obtain from patient Physical Exam General Appearance: mild distress Lines, tubes and drains: other HEENT: normocephalic, atraumatic, anicteric Neck: supple, normal inspection Respiratory/Chest: no respiratory distress, no accessory muscle use, decreased breath sounds Cardiovascular/Chest: normal rate Abdomen: soft, no organomegaly, no mass Extremities: no cyanosis, inflammation, slow capillary refill, other Skin Exam: warm/dry Neurologic: alert Last 24 Hour Vital Signs Date Time Temp Pulse Resp B/P (MAP) Pulse Ox O2 Delivery O2 Flow Rate FiO2 08/10/19 19:00 50 15 156/61 (92) 98 08/10/19 18:20 146/50 08/10/19 18:00 54 16 158/54 (88) 96 08/10/19 17:00 55 16 162/54 (90) 96 08/10/19 16:00 97.0 55 13 158/56 (90) 96 08/10/19 16:00 Simple Mask 3.0 Simple Mask 3.0 Simple Mask 3.0 08/10/19 16:00 54 08/10/19 15:00 56 10 133/45 (74) 98 08/10/19 14:00 55 9 148/51 (83) 99 08/10/19 13:29 171/93 08/10/19 13:00 58 11 175/76 (109) 99 08/10/19 12:00 Simple Mask 3.0 Simple Mask 3.0 Simple Mask 3.0 08/10/19 12:00 55 08/10/19 12:00 97.4 55 9 116/75 (89) 98 08/10/19 12:00 14.0 55 08/10/19 11:44 96 Venturi Mask 14.0 55 08/10/19 11:00 63 12 139/52 (81) 98 08/10/19 10:45 14.0 55 08/10/19 10:00 56 10 102/32 (55) 99 08/10/19 09:30 15.0 08/10/19 09:00 67 11 111/57 (75) 60 08/10/19 08:00 65 08/10/19 08:00 61 11 138/70 (92) 100 08/10/19 08:00 3.0 08/10/19 08:00 Simple Mask 3.0 Simple Mask 3.0 Simple Mask 3.0 08/10/19 07:00 59 9 120/57 (78) 100 08/10/19 06:00 63 13 144/60 (88) 100 08/10/19 05:53 141/64 08/10/19 05:30 Simple Mask 3.0 Simple Mask 3.0 Simple Mask 3.0 08/10/19 05:00 62 14 141/64 (89) 100 08/10/19 04:01 Simple Mask 3.0 Simple Mask 3.0 Simple Mask 3.0 08/10/19 04:00 65 08/10/19 04:00 97.5 65 11 138/67 (90) 100 08/10/19 03:00 62 10 145/76 (99) 100 08/10/19 02:00 59 10 157/81 (106) 100 08/10/19 01:14 185/88 08/10/19 01:06 158/70 08/10/19 01:00 69 14 185/88 (120) 100 08/10/19 00:00 Simple Mask 3.0 Simple Mask 3.0 Simple Mask 3.0 08/10/19 00:00 97.0 74 17 158/70 (99) 100 08/10/19 00:00 66 08/09/19 23:00 66 14 153/68 (96) 100 08/09/19 22:00 63 12 149/74 (99) 100 08/09/19 21:00 69 10 182/70 (107) 100 Intake and Output 08/09/19 08/10/19 19:00 07:00 Intake Total 300 ml 55 ml Output Total 500 ml Balance 300 ml -445 ml IV Total 55 ml Blood Product 300 ml Output Urine Total 500 ml # Voids 1 Laboratory Tests Test 08/10/19 05:10 White Blood Count 4.3 K/UL (4.8-10.8) L Red Blood Count 3.15 M/UL (4.20-5.40) L Hemoglobin 9.4 G/DL (12.0-16.0) L Hematocrit 27.6 % (37.0-47.0) L Mean Corpuscular Volume 88 FL (80-99) Mean Corpuscular Hemoglobin 29.9 PG (27.0-31.0) Mean Corpuscular Hemoglobin Concent 34.0 G/DL (32.0-36.0) Red Cell Distribution Width 16.0 % (11.6-14.8) H Platelet Count 43 K/UL (150-450) L Mean Platelet Volume 9.4 FL (6.5-10.1) Neutrophils (%) (Auto) % (45.0-75.0) Lymphocytes (%) (Auto) % (20.0-45.0) Monocytes (%) (Auto) % (1.0-10.0) Eosinophils (%) (Auto) % (0.0-3.0) Basophils (%) (Auto) % (0.0-2.0) Differential Total Cells Counted 100 Neutrophils % (Manual) 67 % (45-75) Lymphocytes % (Manual) 30 % (20-45) Monocytes % (Manual) 3 % (1-10) Eosinophils % (Manual) 0 % (0-3) Basophils % (Manual) 0 % (0-2) Band Neutrophils 0 % (0-8) Platelet Estimate Decreased L Platelet Morphology Normal Anisocytosis 1+ Sodium Level 141 MMOL/L (136-145) Potassium Level 4.0 MMOL/L (3.5-5.1) Chloride Level 100 MMOL/L (98-107) Carbon Dioxide Level 31 MMOL/L (21-32) Anion Gap 10 mmol/L (5-15) Blood Urea Nitrogen 47 mg/dL (7-18) H Creatinine 3.7 MG/DL (0.55-1.30) H Estimat Glomerular Filtration Rate 11.8 mL/min (>60) Glucose Level 125 MG/DL (74-106) H Lactic Acid Level 0.70 mmol/L (0.4-2.0) Uric Acid 5.9 MG/DL (2.6-7.2) Calcium Level 9.3 MG/DL (8.5-10.1) Phosphorus Level 5.3 MG/DL (2.5-4.9) H Magnesium Level 2.2 MG/DL (1.8-2.4) Total Bilirubin 0.5 MG/DL (0.2-1.0) Aspartate Amino Transf (AST/SGOT) 26 U/L (15-37) Alanine Aminotransferase (ALT/SGPT) 14 U/L (12-78) Alkaline Phosphatase 121 U/L (46-116) H Troponin I 0.004 ng/mL (0.000-0.056) C-Reactive Protein, Quantitative 12.2 mg/dL (0.00-0.90) H Pro-B-Type Natriuretic Peptide 64245 pg/mL (0-125) H Total Protein 6.0 G/DL (6.4-8.2) L Albumin 1.5 G/DL (3.4-5.0) L Globulin 4.5 g/dL Albumin/Globulin Ratio 0.3 (1.0-2.7) L Height (Feet): 5 Height (Inches): 4.00 Weight (Pounds): 98 Medications Current Medications Medications (Trade) Dose Ordered Sig/Javier Route PRN Reason Start Time Stop Time Status Last Admin Dose Admin Clonidine HCl (Catapres TTS-3) 1 patch QWEEK TDERMAL 08/09/19 13:00 09/08/19 12:59 08/09/19 13:14 Dextrose (Dextrose 50%) 50 ml Q30M PRN IV Hypoglycemia 08/09/19 12:45 09/04/19 17:44 Diphenhydramine HCl (Benadryl) 50 mg Q4H PRN IVP Itching 08/09/19 14:30 09/08/19 14:29 08/09/19 14:25 Hydralazine HCl (Apresoline) 10 mg Q4H PRN IV SBP>160 08/09/19 14:30 09/08/19 14:19 08/10/19 01:14 Hydralazine HCl (Apresoline) 10 mg Q4H PRN ORAL SBP above 160 08/09/19 12:39 09/08/19 12:38 Levothyroxine Sodium (Synthroid) 50 mcg DAILY IV 08/10/19 09:00 09/08/19 11:59 08/10/19 09:22 Meropenem 500 mg/ Sodium Chloride 55 ml @ 110 mls/hr EVERY 12 HOURS IVPB 08/09/19 21:00 08/14/19 20:59 08/10/19 09:21 Metoclopramide HCl (Reglan) 5 mg Q8H PRN IVP Nausea & Vomiting 08/09/19 12:39 09/08/19 12:38 Nitroglycerin (Nitro-Bid) 1 inch Q6HR TOPIC 08/09/19 12:39 09/08/19 12:38 08/10/19 18:20 Pantoprazole (Protonix) 40 mg EVERY 12 HOURS IVP 08/09/19 21:00 09/08/19 10:44 08/10/19 09:21 Assessment/Plan Problem List: (1) Malnutrition Assessment & Plan: DAILY ESTIMATED NEEDS: Needs based on ESRD+ HD, underweight, wound/ 39.5kg 35-40 kcals/kg 5629-5955 total kcals 1.25-1.8 g protein/kg 49-71 g total protein 20-22 mL/kg 790-869 total fluid mLs NUTRITION DIAGNOSIS: * Increased kcal and protein needs r/t underweight status, HD needs, wuond healing as evidenced by pt is underweight per guidelines, ESRD, on HD, admitted non-blanching erythema wounds @ BL heels and sacrum * Swallowing difficulty R/T dysphagia as evidenced by CUE WORKER recommends temporary nonoral feeding at this time, s/p NGT insertion, on NGT feeding-> now s/p self removal, NPO. CURRENT TF:NPO PO DIET RECOMMENDATIONS: WHEN SAFE FOR ORAL DIET -> renal/ texture per CUE WORKER ENTERAL NUTRITION RECOMMENDATIONS: W/ GI access: Nepro @ 35ml/hr x 22 hrs to provide 770ml, 1386kcal, 62g prot, 560ml free water * W/ GI access, resume TF on Nepro * Initiate Nepro @ 15ml/hr x 6 hrs, advance 10ml q 4-6 hrs as tolerated to goal rate. * Hold 1 hour before and after Synthroid med * HOB over 30 degrees/ water flush per MD. ADDITIONAL RECOMMENDATIONS: 1) Calibrated bed scale wt for accurate CBW -> daily wt monitoring Per HD record: dry wt on 07/30=39.5kg (87lbs) 2) Wound care: (W/ GI access) add Nephorivte x 1 + Balta BID 3) Monitor NPO status: without GI access at this time, s/p pulling out NGT 4) Monitor for hypoglycemia while NPO 5) Monitor for continuity of HD ICD Codes: E46 - Unspecified protein-calorie malnutrition SNOMED: 01390620 (2) Septic arthritis Assessment & Plan: Pt presented on admission with generalized scaly rash . pt noted to be restless and scratching at skin. Bleeding from oral mucosa noted. Joint deformity noted to R shoulder. Surgical incision approximated with 11 sutures. Erythema but no exudate,or elevation in skin temp at site of incision. Historical incision R hip that is tunneled.Small amt seropurulent exudate noted. Periwound is erythematous,but no elevation in skin temp noted. No odor noted. Non-blanching erythema noted to sacrum. Perianal area is erythematous and excoriated. L heel is boggy with non-blanching erythema. R heel is soft with non-blanching erythema. No evidence of skin breakdown to all other bony prominences. Tx.plan: Cover R shoulder with Drsg and change daily and prn. Cleanse R hip wound with Saline. Apply Therahoney.Apply Cavilon Skin Barrier periwound. Cover with Optifoam drsg. Change every 3 days and prn. Apply Moisture Barrier Paste to perianal area and buttocks. Cover Sacrum with Optifoam drsg. Change every 3 days and prn. Apply Cavilon Skin Barrier to both heels. Cover each heel with Optifoam drsg. Change every 7 days and prn. APM/ELVIA Mattress overlay. Reposition at least every 2hours or as tolerated. Off-load heels with pillow. ICD Codes: M00.9 - Pyogenic arthritis, unspecified SNOMED: 666640072 (3) Wound, open, hip or thigh with complication Assessment & Plan: slow healing will need nutritional optimization difficult ng tube peg when stable ICD Codes: S71.009A - Unspecified open wound, unspecified hip, initial encounter; S71.109A - Unspecified open wound, unspecified thigh, initial encounter SNOMED: 12875511 (4) Abscess of right hip ICD Codes: L02.415 - Cutaneous abscess of right lower limb SNOMED: 867098 (5) possible septic arthritis Camilo James Aug 10, 2019 20:11
[2019-08-11] VITALS (41 sets, daily range): BP systolic 89–201; BP diastolic 30–113
[2019-08-11] MEDS: Nitroglycerin 2% oint pkt TOPIC SCH ×5 (00:20→23:54)
--- NOTE | 2019-08-11 03:45 | Progress Note ---
DATE: 08/10/2019 CARDIOLOGY PROGRESS NOTE SUBJECTIVE: Poor intake. G-tube planned. Remains in intensive care unit. Still with difficulty with respiratory parameters requiring frequent suctioning and bleeding due to low platelet count. PermCath still needs to be replaced due to sepsis. OBJECTIVE: VITAL SIGNS: Sinus rhythm, sinus bradycardia. Blood pressure 120/57, pulse 59 ____, afebrile. LUNGS: Bilateral rhonchi. HEART: Regular rhythm and rate. Normal S1 and S2. ABDOMEN: Soft. EXTREMITIES: No edema. Right shoulder with surgical scar. SKIN: noted. LABORATORY DATA: White count 4.3, hemoglobin 9.4, and platelets 43,000. BUN 47 and creatinine 3.7. Pro-natriuretic peptide 30,000. IMPRESSION: 1. Respiratory failure. 2. Thrombocytopenia. 3. Bleeding from upper respiratory tract. 4. Anemia. 5. Hypertensive heart disease. 6. Sinus bradycardia. PLAN: 1. Respiratory therapy. 2. Antimicrobials. 3. Monitor platelet count. 4. Transfusions as needed. 5. Blood pressure management with hydralazine. 6. Avoid clonidine due to negative chronotropic potential. Abel Stubbs M.D. DR: ALICIA JOB#: [id number] CC:
[2019-08-11 06:04] LABS: HEMATOCRIT 19.7 % (37.0-47.0); MEAN CORPUSCULAR VOLUME 88 FL (80-99); PLATELET COUNT 48 K/UL (150-450); RED BLOOD COUNT 2.23 M/UL (4.20-5.40); RED CELL DISTRIBUTION WIDTH 16.2 % (11.6-14.8); WHITE BLOOD COUNT 4.4 K/UL (4.8-10.8)
[2019-08-11 06:09] LABS: HEMOGLOBIN 6.7 G/DL (12.0-16.0)
[2019-08-11 06:36] LABS: INR 1.1 (0.9-1.1)
[2019-08-11 07:16] LABS: ALANINE AMINOTRANSFERASE 10 U/L (12-78); ALBUMIN 1.3 G/DL (3.4-5.0); ALBUMIN/GLOBULIN RATIO 0.4 (1.0-2.7); ALKALINE PHOSPHATASE 94 U/L (46-116); ANION GAP 10 mmol/L (5-15); ASPARTATE AMINO TRANSFERASE 19 U/L (15-37); BILIRUBIN,TOTAL 0.4 MG/DL (0.2-1.0); BLOOD UREA NITROGEN 55 mg/dL (7-18); CALCIUM 9.2 MG/DL (8.5-10.1); CARBON DIOXIDE 31 MMOL/L (21-32); CHLORIDE 101 MMOL/L (98-107); POTASSIUM 3.8 MMOL/L (3.5-5.1); SODIUM 142 MMOL/L (136-145)
--- NOTE | 2019-08-11 07:37 | General Progress Note ---
Assessment/Plan Problem List: (1) Failure to thrive (0-17) ICD Codes: R62.51 - Failure to thrive (0-17) SNOMED: 613341023 (2) Hypertensive kidney disease ICD Codes: I12.9 - Hypertensive chronic kidney disease with stage 1 through stage 4 chronic kidney disease, or unspecified chronic kidney disease SNOMED: 44538022 (3) Pneumonia ICD Codes: J18.9 - Pneumonia, unspecified organism SNOMED: 623750256 Qualifiers: Qualified Codes: J18.9 - Pneumonia, unspecified organism (4) ESRD (end stage renal disease) ICD Codes: N18.6 - End stage renal disease SNOMED: 32882465 (5) Septic arthritis ICD Codes: M00.9 - Pyogenic arthritis, unspecified SNOMED: 709819271 (6) Thrombocytopenia ICD Codes: D69.6 - Thrombocytopenia, unspecified SNOMED: 107447117 (7) Hypotension ICD Codes: I95.9 - Hypotension, unspecified SNOMED: 80948431 Qualifiers: Qualified Codes: I95.3 - Hypotension of hemodialysis (8) Malnutrition ICD Codes: E46 - Unspecified protein-calorie malnutrition SNOMED: 20610789 Status: not improved, unchanged, deteriorating Assessment/Plan: icu care o2 resp rx/suctioning transfuse plts and rbcs as needed iv PPI iv abx dc perm cath when plts better. bailey for urinary retention iv bp rx eventually needs GT when resp status stable- will d/w pulm and ID d/w family critical and guarded gt when stable Subjective ROS Limited/Unobtainable: No Constitutional: Reports: malaise, weakness HEENT: Reports: no symptoms Cardiovascular: Reports: no symptoms Respiratory: Reports: cough, shortness of breath, sputum Gastrointestinal/Abdominal: Reports: difficulty swallowing Genitourinary: Reports: no symptoms Neurologic/Psychiatric: Reports: pre-existing deficit Endocrine: Reports: no symptoms Hematologic/Lymphatic: Reports: no symptoms Allergies: Coded Allergies: VANCOMYCIN (Unverified Allergy, Unknown, 08/02/19) All Systems: reviewed and negative except above Subjective no events. remains on venti/face mask. BP stable. still having intermittent hemoptysis when suctioned. no fevers. no signs of bleeding noted. cannot place ngt for feeds due to repeated episodes of epistaxis. Objective Last 24 Hour Vital Signs Date Time Temp Pulse Resp B/P (MAP) Pulse Ox O2 Delivery O2 Flow Rate FiO2 08/11/19 07:00 63 22 154/42 (79) 94 08/11/19 06:00 55 14 162/52 (88) 98 08/11/19 05:52 162/52 08/11/19 05:00 53 19 162/52 (88) 98 08/11/19 04:00 Venturi Mask 10.0 Venturi Mask 10.0 Venturi Mask 10.0 08/11/19 04:00 97.8 66 18 161/107 (125) 98 08/11/19 04:00 57 08/11/19 03:00 65 17 149/49 (82) 91 08/11/19 02:00 53 15 172/53 (92) 100 08/11/19 01:00 57 18 164/50 (88) 100 08/11/19 00:20 173/55 08/11/19 00:00 Venturi Mask 10.0 Venturi Mask 10.0 Venturi Mask 10.0 08/11/19 00:00 51 08/11/19 00:00 97.4 55 11 173/55 (94) 100 08/10/19 23:00 52 14 165/56 (92) 97 08/10/19 22:00 56 15 179/61 (100) 98 08/10/19 21:00 53 16 171/60 (97) 97 08/10/19 20:39 97 Venturi Mask 10.0 45 08/10/19 20:00 46 08/10/19 20:00 Venturi Mask 10.0 Venturi Mask 10.0 Venturi Mask 10.0 08/10/19 20:00 97.2 51 15 165/59 (94) 98 08/10/19 19:00 50 15 156/61 (92) 98 08/10/19 18:20 146/50 08/10/19 18:00 54 16 158/54 (88) 96 08/10/19 17:00 55 16 162/54 (90) 96 08/10/19 16:00 97.0 55 13 158/56 (90) 96 08/10/19 16:00 Simple Mask 3.0 Simple Mask 3.0 Simple Mask 3.0 08/10/19 16:00 54 08/10/19 15:00 56 10 133/45 (74) 98 08/10/19 14:00 55 9 148/51 (83) 99 08/10/19 13:29 171/93 08/10/19 13:00 58 11 175/76 (109) 99 08/10/19 12:00 Simple Mask 3.0 Simple Mask 3.0 Simple Mask 3.0 08/10/19 12:00 55 08/10/19 12:00 97.4 55 9 116/75 (89) 98 08/10/19 12:00 14.0 55 08/10/19 11:44 96 Venturi Mask 14.0 55 08/10/19 11:00 63 12 139/52 (81) 98 08/10/19 10:45 14.0 55 08/10/19 10:00 56 10 102/32 (55) 99 08/10/19 09:30 15.0 08/10/19 09:00 67 11 111/57 (75) 60 08/10/19 08:00 65 08/10/19 08:00 61 11 138/70 (92) 100 08/10/19 08:00 3.0 08/10/19 08:00 Simple Mask 3.0 Simple Mask 3.0 Simple Mask 3.0 Intake and Output 08/10/19 08/11/19 19:00 07:00 Intake Total 55 ml 55 ml Output Total 65 ml 55 ml Balance -10 ml 0 ml IV Total 55 ml 55 ml Output Urine Total 65 ml 55 ml Laboratory Tests 08/11/19 05:15: White Blood Count 4.4L, Red Blood Count 2.23L, Hemoglobin 6.7*L, Hematocrit 19.7L, Mean Corpuscular Volume 88, Mean Corpuscular Hemoglobin 29.8, Mean Corpuscular Hemoglobin Concent 33.8, Red Cell Distribution Width 16.2H, Platelet Count 48L, Mean Platelet Volume 9.5, Neutrophils (%) (Auto) , Lymphocytes (%) (Auto) , Monocytes (%) (Auto) , Eosinophils (%) (Auto) , Basophils (%) (Auto) , Neutrophils % (Manual) [Pending], Lymphocytes % (Manual) [Pending], Platelet Estimate [Pending], Platelet Morphology [Pending], Prothrombin Time 12.0H, Prothromb Time International Ratio 1.1, Activated Partial Thromboplast Time 32, Sodium Level 142, Potassium Level 3.8, Chloride Level 101, Carbon Dioxide Level 31, Anion Gap 10, Blood Urea Nitrogen 55H, Creatinine 4.0H, Estimat Glomerular Filtration Rate 10.8, Glucose Level 81, Calcium Level 9.2, Phosphorus Level [Pending], Magnesium Level [Pending], Total Bilirubin 0.4, Aspartate Amino Transf (AST/SGOT) 19, Alanine Aminotransferase ( ALT/SGPT) 10L, Alkaline Phosphatase 94, C-Reactive Protein, Quantitative [ Pending], Pro-B-Type Natriuretic Peptide [Pending], Total Protein 4.9L, Albumin 1.3L, Globulin 3.6, Albumin/Globulin Ratio 0.4L Height (Feet): 5 Height (Inches): 4.00 Weight (Pounds): 98 Objective General Appearance: WD/WN, awake Neck: supple Cardiovascular: normal rate Respiratory/Chest: rhonchi - bilaterally Abdomen: normal bowel sounds, non tender, soft, no organomegaly Edema: no edema noted Arm (L), no edema noted Arm (R), no edema noted Leg (L), no edema noted Leg (R), no edema noted Pedal (L), no edema noted Pedal (R), no edema noted Generalized Neurologic: disoriented, unresponsive, aphasia Nate Beltran MD Aug 11, 2019 07:37
[2019-08-11 07:45] LABS: PHOSPHORUS 5.5 MG/DL (2.5-4.9)
[2019-08-11] MEDS: Pantoprazole Inj IVP SCH ×2 (08:59→21:49)
[2019-08-11] MEDS: Meropenem 500 MG in NS 55 ML IVPB SCH ×2 (08:59→21:49)
--- NOTE | 2019-08-11 10:51 | Nephrology Progress Note ---
Assessment/Plan Problem List: (1) ESRD (end stage renal disease) on dialysis (2) Malnutrition (3) Anemia in CKD (chronic kidney disease) (4) Hypotension (5) Thrombocytopenia (6) Sepsis Assessment: klebsiella in blood Assessment -Early sepsis with shock. -Healthcare-associated pneumonia. -Severe protein-calorie malnutrition. -Thrombocytopenia. - End-stage renal disease. - History of hypertension. - Bradycardia. - HypoThyroid Plan permacath not removed by IR , citing low platelets Dialysis today 08/11 Transfusion as needed Patient has hematemesis Plan is transfuse platelets and remove cath meds IV as possible transfused HD 08/07 remove dialysis cath: Klebsiella in blood BC in am NGT feeding check labs BS control keep BP and BS in check Inflammatory markers per orders Subjective ROS Limited/Unobtainable: Yes Objective Objective Last 24 Hour Vital Signs Date Time Temp Pulse Resp B/P (MAP) Pulse Ox O2 Delivery O2 Flow Rate FiO2 08/11/19 08:00 62 08/11/19 07:00 63 22 154/42 (79) 94 08/11/19 06:00 55 14 162/52 (88) 98 08/11/19 05:52 162/52 08/11/19 05:00 53 19 162/52 (88) 98 08/11/19 04:00 Venturi Mask 10.0 Venturi Mask 10.0 Venturi Mask 10.0 08/11/19 04:00 97.8 66 18 161/107 (125) 98 08/11/19 04:00 57 08/11/19 03:00 65 17 149/49 (82) 91 08/11/19 02:00 53 15 172/53 (92) 100 08/11/19 01:00 57 18 164/50 (88) 100 08/11/19 00:20 173/55 08/11/19 00:00 Venturi Mask 10.0 Venturi Mask 10.0 Venturi Mask 10.0 08/11/19 00:00 51 08/11/19 00:00 97.4 55 11 173/55 (94) 100 08/10/19 23:00 52 14 165/56 (92) 97 08/10/19 22:00 56 15 179/61 (100) 98 08/10/19 21:00 53 16 171/60 (97) 97 08/10/19 20:39 97 Venturi Mask 10.0 45 2/26/20 20:00 46 08/10/19 20:00 Venturi Mask 10.0 Venturi Mask 10.0 Venturi Mask 10.0 08/10/19 20:00 97.2 51 15 165/59 (94) 98 08/10/19 19:00 50 15 156/61 (92) 98 08/10/19 18:20 146/50 08/10/19 18:00 54 16 158/54 (88) 96 08/10/19 17:00 55 16 162/54 (90) 96 08/10/19 16:00 97.0 55 13 158/56 (90) 96 08/10/19 16:00 Simple Mask 3.0 Simple Mask 3.0 Simple Mask 3.0 08/10/19 16:00 54 08/10/19 15:00 56 10 133/45 (74) 98 08/10/19 14:00 55 9 148/51 (83) 99 08/10/19 13:29 171/93 08/10/19 13:00 58 11 175/76 (109) 99 08/10/19 12:00 Simple Mask 3.0 Simple Mask 3.0 Simple Mask 3.0 08/10/19 12:00 55 08/10/19 12:00 97.4 55 9 116/75 (89) 98 08/10/19 12:00 14.0 55 08/10/19 11:44 96 Venturi Mask 14.0 55 08/10/19 11:00 63 12 139/52 (81) 98 Intake and Output 08/10/19 08/11/19 19:00 07:00 Intake Total 55 ml 55 ml Output Total 65 ml 55 ml Balance -10 ml 0 ml IV Total 55 ml 55 ml Output Urine Total 65 ml 55 ml Laboratory Tests 08/11/19 05:15: White Blood Count 4.4L, Red Blood Count 2.23L, Hemoglobin 6.7*L, Hematocrit 19.7L, Mean Corpuscular Volume 88, Mean Corpuscular Hemoglobin 29.8, Mean Corpuscular Hemoglobin Concent 33.8, Red Cell Distribution Width 16.2H, Platelet Count 48L, Mean Platelet Volume 9.5, Neutrophils (%) (Auto) , Lymphocytes (%) (Auto) , Monocytes (%) (Auto) , Eosinophils (%) (Auto) , Basophils (%) (Auto) , Differential Total Cells Counted 100, Neutrophils % ( Manual) 46, Lymphocytes % (Manual) 43, Monocytes % (Manual) 8, Eosinophils % ( Manual) 3, Basophils % (Manual) 0, Band Neutrophils 0, Platelet Estimate DecreasedL, Platelet Morphology Normal, Hypochromasia 1+, Anisocytosis 1+, Prothrombin Time 12.0H, Prothromb Time International Ratio 1.1, Activated Partial Thromboplast Time 32, Sodium Level 142, Potassium Level 3.8, Chloride Level 101, Carbon Dioxide Level 31, Anion Gap 10, Blood Urea Nitrogen 55H, Creatinine 4.0H, Estimat Glomerular Filtration Rate 10.8, Glucose Level 81, Calcium Level 9.2, Phosphorus Level 5.5H, Magnesium Level 2.2, Total Bilirubin 0.4, Aspartate Amino Transf (AST/SGOT) 19, Alanine Aminotransferase (ALT/SGPT) 10L, Alkaline Phosphatase 94, C-Reactive Protein, Quantitative 7.4H, Pro-B-Type Natriuretic Peptide 68009F, Total Protein 4.9L, Albumin 1.3L, Globulin 3.6, Albumin/Globulin Ratio 0.4L Height (Feet): 5 Height (Inches): 4.00 Weight (Pounds): 98 General Appearance: no apparent distress, lethargic Cardiovascular: bradycardia Respiratory/Chest: decreased breath sounds Abdomen: soft Objective no change William Blackwood MD Aug 11, 2019 10:51
--- NOTE | 2019-08-11 11:51 | Surgery Progress Note ---
Surgery Progress Note Subjective Additional Comments no acute events sutures from right shoulder removed Objective Last 24 Hour Vital Signs Date Time Temp Pulse Resp B/P (MAP) Pulse Ox O2 Delivery O2 Flow Rate FiO2 08/11/19 11:17 63 13 157/55 (89) 96 08/11/19 11:00 53 17 89/30 (49) 99 08/11/19 10:00 64 19 135/78 (97) 98 08/11/19 09:05 57 11 149/92 (111) 98 08/11/19 08:00 62 08/11/19 08:00 97.7 52 10 144/51 (82) 97 08/11/19 08:00 Venturi Mask 10.0 Venturi Mask 10.0 Venturi Mask 10.0 08/11/19 07:00 63 22 154/42 (79) 94 08/11/19 06:00 55 14 162/52 (88) 98 08/11/19 05:52 162/52 08/11/19 05:00 53 19 162/52 (88) 98 08/11/19 04:00 Venturi Mask 10.0 Venturi Mask 10.0 Venturi Mask 10.0 08/11/19 04:00 97.8 66 18 161/107 (125) 98 08/11/19 04:00 57 08/11/19 03:00 65 17 149/49 (82) 91 08/11/19 02:00 53 15 172/53 (92) 100 08/11/19 01:00 57 18 164/50 (88) 100 08/11/19 00:20 173/55 08/11/19 00:00 Venturi Mask 10.0 Venturi Mask 10.0 Venturi Mask 10.0 08/11/19 00:00 51 08/11/19 00:00 97.4 55 11 173/55 (94) 100 08/10/19 23:00 52 14 165/56 (92) 97 08/10/19 22:00 56 15 179/61 (100) 98 08/10/19 21:00 53 16 171/60 (97) 97 08/10/19 20:39 97 Venturi Mask 10.0 45 08/10/19 20:00 46 08/10/19 20:00 Venturi Mask 10.0 Venturi Mask 10.0 Venturi Mask 10.0 08/10/19 20:00 97.2 51 15 165/59 (94) 98 08/10/19 19:00 50 15 156/61 (92) 98 08/10/19 18:20 146/50 08/10/19 18:00 54 16 158/54 (88) 96 08/10/19 17:00 55 16 162/54 (90) 96 08/10/19 16:00 97.0 55 13 158/56 (90) 96 08/10/19 16:00 Simple Mask 3.0 Simple Mask 3.0 Simple Mask 3.0 08/10/19 16:00 54 08/10/19 15:00 56 10 133/45 (74) 98 08/10/19 14:00 55 9 148/51 (83) 99 08/10/19 13:29 171/93 08/10/19 13:00 58 11 175/76 (109) 99 08/10/19 12:00 Simple Mask 3.0 Simple Mask 3.0 Simple Mask 3.0 08/10/19 12:00 55 08/10/19 12:00 97.4 55 9 116/75 (89) 98 08/10/19 12:00 14.0 55 I&O Intake and Output 08/10/19 08/11/19 19:00 07:00 Intake Total 55 ml 55 ml Output Total 65 ml 60 ml Balance -10 ml -5 ml IV Total 55 ml 55 ml Output Urine Total 65 ml 60 ml Dressing: dry Wound: clean Cardiovascular: RSR Abdomen: non-tender, present bowel sounds Extremities: no cyanosis Laboratory Tests Test 08/11/19 05:15 White Blood Count 4.4 K/UL (4.8-10.8) L Red Blood Count 2.23 M/UL (4.20-5.40) L Hemoglobin 6.7 G/DL (12.0-16.0) *L Hematocrit 19.7 % (37.0-47.0) L Mean Corpuscular Volume 88 FL (80-99) Mean Corpuscular Hemoglobin 29.8 PG (27.0-31.0) Mean Corpuscular Hemoglobin Concent 33.8 G/DL (32.0-36.0) Red Cell Distribution Width 16.2 % (11.6-14.8) H Platelet Count 48 K/UL (150-450) L Mean Platelet Volume 9.5 FL (6.5-10.1) Neutrophils (%) (Auto) % (45.0-75.0) Lymphocytes (%) (Auto) % (20.0-45.0) Monocytes (%) (Auto) % (1.0-10.0) Eosinophils (%) (Auto) % (0.0-3.0) Basophils (%) (Auto) % (0.0-2.0) Differential Total Cells Counted 100 Neutrophils % (Manual) 46 % (45-75) Lymphocytes % (Manual) 43 % (20-45) Monocytes % (Manual) 8 % (1-10) Eosinophils % (Manual) 3 % (0-3) Basophils % (Manual) 0 % (0-2) Band Neutrophils 0 % (0-8) Platelet Estimate Decreased L Platelet Morphology Normal Hypochromasia 1+ Anisocytosis 1+ Prothrombin Time 12.0 SEC (9.30-11.50) H Prothromb Time International Ratio 1.1 (0.9-1.1) Activated Partial Thromboplast Time 32 SEC (23-33) Sodium Level 142 MMOL/L (136-145) Potassium Level 3.8 MMOL/L (3.5-5.1) Chloride Level 101 MMOL/L (98-107) Carbon Dioxide Level 31 MMOL/L (21-32) Anion Gap 10 mmol/L (5-15) Blood Urea Nitrogen 55 mg/dL (7-18) H Creatinine 4.0 MG/DL (0.55-1.30) H Estimat Glomerular Filtration Rate 10.8 mL/min (>60) Glucose Level 81 MG/DL (74-106) Calcium Level 9.2 MG/DL (8.5-10.1) Phosphorus Level 5.5 MG/DL (2.5-4.9) H Magnesium Level 2.2 MG/DL (1.8-2.4) Total Bilirubin 0.4 MG/DL (0.2-1.0) Aspartate Amino Transf (AST/SGOT) 19 U/L (15-37) Alanine Aminotransferase (ALT/SGPT) 10 U/L (12-78) L Alkaline Phosphatase 94 U/L (46-116) C-Reactive Protein, Quantitative 7.4 mg/dL (0.00-0.90) H Pro-B-Type Natriuretic Peptide 66792 pg/mL (0-125) H Total Protein 4.9 G/DL (6.4-8.2) L Albumin 1.3 G/DL (3.4-5.0) L Globulin 3.6 g/dL Albumin/Globulin Ratio 0.4 (1.0-2.7) L Plan Problems: (1) Malnutrition Assessment & Plan: DAILY ESTIMATED NEEDS: Needs based on ESRD+ HD, underweight, wound/ 39.5kg 35-40 kcals/kg 6585-4322 total kcals 1.25-1.8 g protein/kg 49-71 g total protein 20-22 mL/kg 790-869 total fluid mLs NUTRITION DIAGNOSIS: * Increased kcal and protein needs r/t underweight status, HD needs, wuond healing as evidenced by pt is underweight per guidelines, ESRD, on HD, admitted non-blanching erythema wounds @ BL heels and sacrum * Swallowing difficulty R/T dysphagia as evidenced by CONSTRUCTION SUPER[employer]OR recommends temporary nonoral feeding at this time, s/p NGT insertion, on NGT feeding-> now s/p self removal, NPO. CURRENT TF:NPO PO DIET RECOMMENDATIONS: WHEN SAFE FOR ORAL DIET -> renal/ texture per CONSTRUCTION SUPERVISOR ENTERAL NUTRITION RECOMMENDATIONS: W/ GI access: Nepro @ 35ml/hr x 22 hrs to provide 770ml, 1386kcal, 62g prot, 560ml free water * W/ GI access, resume TF on Nepro * Initiate Nepro @ 15ml/hr x 6 hrs, advance 10ml q 4-6 hrs as tolerated to goal rate. * Hold 1 hour before and after Synthroid med * HOB over 30 degrees/ water flush per MD. ADDITIONAL RECOMMENDATIONS: 1) Calibrated bed scale wt for accurate CBW -> daily wt monitoring Per HD record: dry wt on 07/30=39.5kg (87lbs) 2) Wound care: (W/ GI access) add Nephorivte x 1 + Balta BID 3) Monitor NPO status: without GI access at this time, s/p pulling out NGT 4) Monitor for hypoglycemia while NPO 5) Monitor for continuity of HD (2) Septic arthritis Assessment & Plan: Pt presented on admission with generalized scaly rash . pt noted to be restless and scratching at skin. Bleeding from oral mucosa noted. Joint deformity noted to R shoulder. Surgical incision approximated with 11 sutures. Erythema but no exudate,or elevation in skin temp at site of incision. Historical incision R hip that is tunneled.Small amt seropurulent exudate noted. Periwound is erythematous,but no elevation in skin temp noted. No odor noted. Non-blanching erythema noted to sacrum. Perianal area is erythematous and excoriated. L heel is boggy with non-blanching erythema. R heel is soft with non-blanching erythema. No evidence of skin breakdown to all other bony prominences. Tx.plan: Cover R shoulder with Drsg and change daily and prn. Cleanse R hip wound with Saline. Apply Therahoney.Apply Cavilon Skin Barrier periwound. Cover with Optifoam drsg. Change every 3 days and prn. Apply Moisture Barrier Paste to perianal area and buttocks. Cover Sacrum with Optifoam drsg. Change every 3 days and prn. Apply Cavilon Skin Barrier to both heels. Cover each heel with Optifoam drsg. Change every 7 days and prn. APM/ELVIA Mattress overlay. Reposition at least every 2hours or as tolerated. Off-load heels with pillow. (3) Wound, open, hip or thigh with complication Assessment & Plan: slow healing will need nutritional optimization difficult ng tube peg when stable sutures removed from right shoulder comfortable (4) Abscess of right hip (5) possible septic arthritis Camilo James Aug 11, 2019 11:51
--- NOTE | 2019-08-11 12:10 | Diagnostic Imaging Report ---
Indication: Abdominal pain, abnormal liver function tests, abnormal renal function tests Technique: Salas-scale and duplex images of the upper abdomen were obtained Comparison: No comparison sonograms. Reference made to abdomen pelvis CT scan dated 08/05/2018 Findings: Gallbladder is unremarkable, without stones, wall thickening, nor pericholecystic fluid. Patient unable to report sonographic Hogue's sign Common bile duct measures 4 mm in diameter. No intrahepatic biliary ductal dilatation. Liver demonstrates coarsened echogenicity. Portal vein and hepatic veins are patent. Pancreas is unremarkable. Spleen is unremarkable. Left kidney measures 6.8 cm in length. Right kidney measures 6.5 cm length. Both kidneys demonstrate increased echogenicity There is no hydronephrosis. No focal abnormality . Non-aneurysmal abdominal aorta . There is trace ascites fluid. There are bilateral pleural effusions Impression: Negative for gallstones or dilated bile ducts Coarsened hepatic echogenicity, nonspecific but indicative of hepatocellular disease Trace ascites Bilateral pleural effusions Atrophic echogenic kidneys, consistent with medical renal disease
--- NOTE | 2019-08-11 13:34 | Infectious Diseases Prog Note ---
Assessment/Plan Assessment/Plan A; 1. Urinary tract infection with E. coli ESBL 2. Klebsiella sepsis , likely catheter related sepsis. 3. Right shoulder septic arthritis, status post surgery. 4. Diabetes. 5. Hypertension. 6. Anemia 7. Thrombocytopenia PLAN: 1. Continue Meropenem 2. Can not change PermCath because off decreased platelets Subjective ROS Limited/Unobtainable: Yes HEENT: Reports: other - nasal bleeding after NG tube placement Gastrointestinal/Abdominal: Reports: other - ? hematemesis Allergies: Coded Allergies: VANCOMYCIN (Unverified Allergy, Unknown, 08/02/19) Objective Vital Signs Last 24 Hour Vital Signs Date Time Temp Pulse Resp B/P (MAP) Pulse Ox O2 Delivery O2 Flow Rate FiO2 08/11/19 12:26 146/60 08/11/19 12:00 55 08/11/19 12:00 97.0 54 11 146/60 (88) 98 08/11/19 11:17 63 13 157/55 (89) 96 08/11/19 11:00 53 17 89/30 (49) 99 08/11/19 10:00 64 19 135/78 (97) 98 08/11/19 09:05 57 11 149/92 (111) 98 08/11/19 08:00 62 08/11/19 08:00 97.7 52 10 144/51 (82) 97 08/11/19 08:00 Venturi Mask 10.0 Venturi Mask 10.0 Venturi Mask 10.0 08/11/19 07:00 63 22 154/42 (79) 94 08/11/19 06:00 55 14 162/52 (88) 98 08/11/19 05:52 162/52 08/11/19 05:00 53 19 162/52 (88) 98 08/11/19 04:00 Venturi Mask 10.0 Venturi Mask 10.0 Venturi Mask 10.0 08/11/19 04:00 97.8 66 18 161/107 (125) 98 08/11/19 04:00 57 08/11/19 03:00 65 17 149/49 (82) 91 08/11/19 02:00 53 15 172/53 (92) 100 08/11/19 01:00 57 18 164/50 (88) 100 08/11/19 00:20 173/55 08/11/19 00:00 Venturi Mask 10.0 Venturi Mask 10.0 Venturi Mask 10.0 08/11/19 00:00 51 08/11/19 00:00 97.4 55 11 173/55 (94) 100 08/10/19 23:00 52 14 165/56 (92) 97 08/10/19 22:00 56 15 179/61 (100) 98 08/10/19 21:00 53 16 171/60 (97) 97 08/10/19 20:39 97 Venturi Mask 10.0 45 08/10/19 20:00 46 08/10/19 20:00 Venturi Mask 10.0 Venturi Mask 10.0 Venturi Mask 10.0 08/10/19 20:00 97.2 51 15 165/59 (94) 98 08/10/19 19:00 50 15 156/61 (92) 98 08/10/19 18:20 146/50 08/10/19 18:00 54 16 158/54 (88) 96 08/10/19 17:00 55 16 162/54 (90) 96 08/10/19 16:00 97.0 55 13 158/56 (90) 96 08/10/19 16:00 Simple Mask 3.0 Simple Mask 3.0 Simple Mask 3.0 08/10/19 16:00 54 08/10/19 15:00 56 10 133/45 (74) 98 08/10/19 14:00 55 9 148/51 (83) 99 Height (Feet): 5 Height (Inches): 4.00 Weight (Pounds): 100 General Appearance: cachetic HEENT: mucous membranes moist Respiratory/Chest: rhonchi - bilaterally, other - oxygen by mask Cardiovascular: bradycardia, other - R Permacath Abdomen: soft, non tender Extremities: other - mild edema Skin: ulcers Neurologic/Psychiatric: disoriented Microbiology Date/Time Source Procedure Growth Status 08/09/19 06:20 Blood Blood Culture - Preliminary NO GROWTH AFTER 24 HOURS Resulted 08/09/19 06:15 Blood Blood Culture - Preliminary NO GROWTH AFTER 24 HOURS Resulted Laboratory Tests Test 08/11/19 05:15 White Blood Count 4.4 K/UL (4.8-10.8) L Red Blood Count 2.23 M/UL (4.20-5.40) L Hemoglobin 6.7 G/DL (12.0-16.0) *L Hematocrit 19.7 % (37.0-47.0) L Mean Corpuscular Volume 88 FL (80-99) Mean Corpuscular Hemoglobin 29.8 PG (27.0-31.0) Mean Corpuscular Hemoglobin Concent 33.8 G/DL (32.0-36.0) Red Cell Distribution Width 16.2 % (11.6-14.8) H Platelet Count 48 K/UL (150-450) L Mean Platelet Volume 9.5 FL (6.5-10.1) Neutrophils (%) (Auto) % (45.0-75.0) Lymphocytes (%) (Auto) % (20.0-45.0) Monocytes (%) (Auto) % (1.0-10.0) Eosinophils (%) (Auto) % (0.0-3.0) Basophils (%) (Auto) % (0.0-2.0) Differential Total Cells Counted 100 Neutrophils % (Manual) 46 % (45-75) Lymphocytes % (Manual) 43 % (20-45) Monocytes % (Manual) 8 % (1-10) Eosinophils % (Manual) 3 % (0-3) Basophils % (Manual) 0 % (0-2) Band Neutrophils 0 % (0-8) Platelet Estimate Decreased L Platelet Morphology Normal Hypochromasia 1+ Anisocytosis 1+ Prothrombin Time 12.0 SEC (9.30-11.50) H Prothromb Time International Ratio 1.1 (0.9-1.1) Activated Partial Thromboplast Time 32 SEC (23-33) Sodium Level 142 MMOL/L (136-145) Potassium Level 3.8 MMOL/L (3.5-5.1) Chloride Level 101 MMOL/L (98-107) Carbon Dioxide Level 31 MMOL/L (21-32) Anion Gap 10 mmol/L (5-15) Blood Urea Nitrogen 55 mg/dL (7-18) H Creatinine 4.0 MG/DL (0.55-1.30) H Estimat Glomerular Filtration Rate 10.8 mL/min (>60) Glucose Level 81 MG/DL (74-106) Calcium Level 9.2 MG/DL (8.5-10.1) Phosphorus Level 5.5 MG/DL (2.5-4.9) H Magnesium Level 2.2 MG/DL (1.8-2.4) Total Bilirubin 0.4 MG/DL (0.2-1.0) Aspartate Amino Transf (AST/SGOT) 19 U/L (15-37) Alanine Aminotransferase (ALT/SGPT) 10 U/L (12-78) L Alkaline Phosphatase 94 U/L (46-116) C-Reactive Protein, Quantitative 7.4 mg/dL (0.00-0.90) H Pro-B-Type Natriuretic Peptide 18535 pg/mL (0-125) H Total Protein 4.9 G/DL (6.4-8.2) L Albumin 1.3 G/DL (3.4-5.0) L Globulin 3.6 g/dL Albumin/Globulin Ratio 0.4 (1.0-2.7) L Current Medications Medications (Trade) Dose Ordered Sig/Javier Route PRN Reason Start Time Stop Time Status Last Admin Dose Admin Dextrose (Dextrose 50%) 50 ml Q30M PRN IV Hypoglycemia 08/11/19 10:30 09/04/19 17:44 08/11/19 12:25 Diphenhydramine HCl (Benadryl) 50 mg Q4H PRN IVP Itching 08/09/19 14:30 09/08/19 14:29 08/09/19 14:25 Hydralazine HCl (Apresoline) 10 mg Q4H PRN ORAL SBP above 160 08/09/19 12:39 09/08/19 12:38 Hydralazine HCl (Apresoline) 25 mg Q4H PRN IV SBP>160 08/11/19 02:30 09/10/19 02:29 Levothyroxine Sodium (Synthroid) 50 mcg DAILY IV 08/10/19 09:00 09/08/19 11:59 08/11/19 10:23 Meropenem 500 mg/ Sodium Chloride 55 ml @ 110 mls/hr EVERY 12 HOURS IVPB 08/09/19 21:00 08/14/19 20:59 08/11/19 08:59 Metoclopramide HCl (Reglan) 5 mg Q8H PRN IVP Nausea & Vomiting 08/09/19 12:39 09/08/19 12:38 Nitroglycerin (Nitro-Bid) 1 inch Q6HR TOPIC 08/09/19 12:39 09/08/19 12:38 08/11/19 12:26 Pantoprazole (Protonix) 40 mg EVERY 12 HOURS IVP 08/09/19 21:00 09/08/19 10:44 08/11/19 08:59 Warren Parks MD Aug 11, 2019 13:34
--- NOTE | 2019-08-11 15:52 | Hematology/Onc Progress Note ---
Assessment/Plan Assessment/Plan # Thrombocytopenia - potential causes multifactorial, evaluate liver and viral etiologies to begin, in this case due to sepsis with septic shock also with cirrhosis and liver disease --> Hep panel and HIV ordered -> neg --> US abd to evaluate for cirrhosis and hsm ordered --> reviewed --> Peripheral smear ordered to evaluate for blasts /schistocytes --> abx and other meds have been reviewed --> ok for ppx if plt >50k w/ either heparin or lovenox --> Transfuse if Plt < 20k and fever, or if Plt < 10k without fever --> okay for permacath change once plt better # Anemia of chronic disease due to underlying chronic medical issues, multifactorial v Gi bleed --> Anemia workup has been ordered, rule out gi bleed --> No evidence of hemolysis is noted, peripheral smear has been reviewed. --> Hgb goal >7. Transfuse prn. --> Epogen has been started --> HOLD OFF IRON ferritin is >1000 --> Medications have been reviewed --> low threshold for gi evaluation in case has occult + --> hgb 9-->6.7 # Early sepsis with shock. --> abx as per id, recs noted # Healthcare-associated pneumonia. --> recs reviewed # Severe protein-calorie malnutrition. --> nuritional support # End-stage renal disease --> had as renal hd # History of hypertension. --> per cards, now with Bradycardia. # HypoThyroid # Ngt feedings The timing of this note does not necessarily reflect the time of the patient was seen. Greatly appreciate consultation. Subjective HEENT: Denies: no symptoms, eye pain, blurred vision, tearing, double vision, ear pain, ear discharge, nose pain, nose congestion, throat pain, throat swelling, mouth pain, mouth swelling, other Cardiovascular: Denies: no symptoms, chest pain, edema, irregular heart rate, lightheadedness, palpitations, syncope, other Genitourinary: Denies: no symptoms, burning, discharge, frequency, flank pain, hematuria, incontinence, pain, urgency, other Neurologic/Psychiatric: Denies: no symptoms, anxiety, depressed, emotional problems, headache, numbness, paresthesia, pre-existing deficit, seizure, tingling, tremors, weakness, other Endocrine: Denies: no symptoms, excessive sweating, flushing, intolerance to cold, intolerance to heat, increased hunger, increased thirst, increased urine, unexplained weight gain, unexplained weight loss, other Hematologic/Lymphatic: Denies: no symptoms, anemia, easy bleeding, easy bruising, adenopathy, other Allergies: Coded Allergies: VANCOMYCIN (Unverified Allergy, Unknown, 08/02/19) Subjective 08/11: no bleeding or chills, labs reviewed, no major bleeding, plt less than 50k Objective Objective Current Medications Medications (Trade) Dose Ordered Sig/Javier Route PRN Reason Start Time Stop Time Status Last Admin Dose Admin Dextrose (Dextrose 50%) 50 ml Q30M PRN IV Hypoglycemia 08/11/19 10:30 09/04/19 17:44 08/11/19 12:25 Diphenhydramine HCl (Benadryl) 50 mg Q4H PRN IVP Itching 08/09/19 14:30 09/08/19 14:29 08/09/19 14:25 Hydralazine HCl (Apresoline) 10 mg Q4H PRN ORAL SBP above 160 08/09/19 12:39 09/08/19 12:38 Hydralazine HCl (Apresoline) 25 mg Q4H PRN IV SBP>160 08/11/19 02:30 09/10/19 02:29 Levothyroxine Sodium (Synthroid) 50 mcg DAILY IV 08/10/19 09:00 09/08/19 11:59 08/11/19 10:23 Meropenem 500 mg/ Sodium Chloride 55 ml @ 110 mls/hr EVERY 12 HOURS IVPB 08/09/19 21:00 08/14/19 20:59 08/11/19 08:59 Metoclopramide HCl (Reglan) 5 mg Q8H PRN IVP Nausea & Vomiting 08/09/19 12:39 09/08/19 12:38 Nitroglycerin (Nitro-Bid) 1 inch Q6HR TOPIC 08/09/19 12:39 09/08/19 12:38 08/11/19 12:26 Pantoprazole (Protonix) 40 mg EVERY 12 HOURS IVP 08/09/19 21:00 09/08/19 10:44 08/11/19 08:59 Last 24 Hour Vital Signs Date Time Temp Pulse Resp B/P (MAP) Pulse Ox O2 Delivery O2 Flow Rate FiO2 08/11/19 15:00 53 11 140/59 (86) 99 08/11/19 14:00 56 13 151/62 (91) 98 08/11/19 13:00 54 12 148/62 (90) 97 08/11/19 12:26 146/60 08/11/19 12:00 55 08/11/19 12:00 Venturi Mask 10.0 Venturi Mask 10.0 Venturi Mask 10.0 08/11/19 12:00 14.0 55 08/11/19 12:00 97.0 54 11 146/60 (88) 98 08/11/19 11:17 63 13 157/55 (89) 96 08/11/19 11:00 53 17 89/30 (49) 99 08/11/19 10:00 64 19 135/78 (97) 98 08/11/19 09:05 57 11 149/92 (111) 98 08/11/19 08:00 14.0 55 08/11/19 08:00 62 08/11/19 08:00 97.7 52 10 144/51 (82) 97 08/11/19 08:00 Venturi Mask 10.0 Venturi Mask 10.0 Venturi Mask 10.0 08/11/19 07:00 63 22 154/42 (79) 94 08/11/19 06:00 55 14 162/52 (88) 98 08/11/19 05:52 162/52 08/11/19 05:00 53 19 162/52 (88) 98 08/11/19 04:00 Venturi Mask 10.0 Venturi Mask 10.0 Venturi Mask 10.0 08/11/19 04:00 97.8 66 18 161/107 (125) 98 08/11/19 04:00 57 08/11/19 03:00 65 17 149/49 (82) 91 08/11/19 02:00 53 15 172/53 (92) 100 08/11/19 01:00 57 18 164/50 (88) 100 08/11/19 00:20 173/55 08/11/19 00:00 Venturi Mask 10.0 Venturi Mask 10.0 Venturi Mask 10.0 08/11/19 00:00 51 2/27/20 00:00 97.4 55 11 173/55 (94) 100 08/10/19 23:00 52 14 165/56 (92) 97 08/10/19 22:00 56 15 179/61 (100) 98 08/10/19 21:00 53 16 171/60 (97) 97 08/10/19 20:39 97 Venturi Mask 10.0 45 08/10/19 20:00 46 08/10/19 20:00 Venturi Mask 10.0 Venturi Mask 10.0 Venturi Mask 10.0 08/10/19 20:00 97.2 51 15 165/59 (94) 98 08/10/19 19:00 50 15 156/61 (92) 98 08/10/19 18:20 146/50 08/10/19 18:00 54 16 158/54 (88) 96 08/10/19 17:00 55 16 162/54 (90) 96 08/10/19 16:00 97.0 55 13 158/56 (90) 96 08/10/19 16:00 Simple Mask 3.0 Simple Mask 3.0 Simple Mask 3.0 08/10/19 16:00 54 08/10/19 15:00 56 10 133/45 (74) 98 08/10/19 14:00 55 9 148/51 (83) 99 08/10/19 13:29 171/93 08/10/19 13:00 58 11 175/76 (109) 99 08/10/19 12:00 Simple Mask 3.0 Simple Mask 3.0 Simple Mask 3.0 08/10/19 12:00 55 08/10/19 12:00 97.4 55 9 116/75 (89) 98 08/10/19 12:00 14.0 55 08/10/19 11:44 96 Venturi Mask 14.0 55 08/10/19 11:00 63 12 139/52 (81) 98 08/10/19 10:45 14.0 55 08/10/19 10:00 56 10 102/32 (55) 99 08/10/19 09:30 15.0 08/10/19 09:00 67 11 111/57 (75) 60 08/10/19 08:00 65 08/10/19 08:00 61 11 138/70 (92) 100 08/10/19 08:00 3.0 08/10/19 08:00 Simple Mask 3.0 Simple Mask 3.0 Simple Mask 3.0 08/10/19 07:00 59 9 120/57 (78) 100 08/10/19 06:00 63 13 144/60 (88) 100 08/10/19 05:53 141/64 08/10/19 05:30 Simple Mask 3.0 Simple Mask 3.0 Simple Mask 3.0 08/10/19 05:00 62 14 141/64 (89) 100 08/10/19 04:01 Simple Mask 3.0 Simple Mask 3.0 Simple Mask 3.0 08/10/19 04:00 65 08/10/19 04:00 97.5 65 11 138/67 (90) 100 08/10/19 03:00 62 10 145/76 (99) 100 08/10/19 02:00 59 10 157/81 (106) 100 08/10/19 01:14 185/88 08/10/19 01:06 158/70 08/10/19 01:00 69 14 185/88 (120) 100 08/10/19 00:00 Simple Mask 3.0 Simple Mask 3.0 Simple Mask 3.0 08/10/19 00:00 97.0 74 17 158/70 (99) 100 08/10/19 00:00 66 08/09/19 23:00 66 14 153/68 (96) 100 08/09/19 22:00 63 12 149/74 (99) 100 08/09/19 21:00 69 10 182/70 (107) 100 08/09/19 20:00 70 08/09/19 20:00 Simple Mask 3.0 Simple Mask 3.0 Simple Mask 3.0 08/09/19 20:00 97.5 67 8 146/63 (90) 100 08/09/19 19:00 96 Non-Rebreather 15.0 100 08/09/19 19:00 72 9 156/68 (97) 100 08/09/19 18:00 71 11 134/55 (81) 100 08/09/19 17:30 Venturi Mask 14.0 Venturi Mask 14.0 08/09/19 17:30 14.0 55 08/09/19 17:00 77 26 157/71 (99) 99 08/09/19 17:00 168/76 08/09/19 16:55 168/76 08/09/19 16:23 75 17 173/74 (107) 100 08/09/19 16:17 75 19 175/76 (109) 100 08/09/19 16:08 75 16 164/89 (114) 100 08/09/19 16:00 15.0 08/09/19 16:00 97.5 76 16 172/67 (102) 100 08/09/19 16:00 Non-Rebreather 15.0 Non-Rebreather 15.0 08/09/19 16:00 80 Intake and Output 08/10/19 08/11/19 19:00 07:00 Intake Total 55 ml 55 ml Output Total 65 ml 60 ml Balance -10 ml -5 ml IV Total 55 ml 55 ml Output Urine Total 65 ml 60 ml Labs Test 08/09/19 06:20 08/09/19 15:12 08/10/19 05:10 08/11/19 05:15 White Blood Count 8.3 K/UL (4.8-10.8) 4.3 K/UL (4.8-10.8) 4.4 K/UL (4.8-10.8) Red Blood Count 3.13 M/UL (4.20-5.40) 3.15 M/UL (4.20-5.40) 2.23 M/UL (4.20-5.40) Hemoglobin 9.4 G/DL (12.0-16.0) 9.4 G/DL (12.0-16.0) 6.7 G/DL (12.0-16.0) Hematocrit 27.1 % (37.0-47.0) 27.6 % (37.0-47.0) 19.7 % (37.0-47.0) Mean Corpuscular Volume 86 FL (80-99) 88 FL (80-99) 88 FL (80-99) Mean Corpuscular Hemoglobin 29.9 PG (27.0-31.0) 29.9 PG (27.0-31.0) 29.8 PG (27.0-31.0) Mean Corpuscular Hemoglobin Concent 34.6 G/DL (32.0-36.0) 34.0 G/DL (32.0-36.0) 33.8 G/DL (32.0-36.0) Red Cell Distribution Width 16.8 % (11.6-14.8) 16.0 % (11.6-14.8) 16.2 % (11.6-14.8) Platelet Count 36 K/UL (150-450) 43 K/UL (150-450) 48 K/UL (150-450) Manual Platelet Count 38 K/UL (150-450) Mean Platelet Volume 11.3 FL (6.5-10.1) 9.4 FL (6.5-10.1) 9.5 FL (6.5-10.1) Neutrophils (%) (Auto) % (45.0-75.0) % (45.0-75.0) % (45.0-75.0) Lymphocytes (%) (Auto) % (20.0-45.0) % (20.0-45.0) % (20.0-45.0) Monocytes (%) (Auto) % (1.0-10.0) % (1.0-10.0) % (1.0-10.0) Eosinophils (%) (Auto) % (0.0-3.0) % (0.0-3.0) % (0.0-3.0) Basophils (%) (Auto) % (0.0-2.0) % (0.0-2.0) % (0.0-2.0) Neutrophils % (Manual) 68 % (45-75) 67 % (45-75) 46 % (45-75) Lymphocytes % (Manual) 26 % (20-45) 30 % (20-45) 43 % (20-45) Monocytes % (Manual) 2 % (1-10) 3 % (1-10) 8 % (1-10) Eosinophils % (Manual) 0 % (0-3) 0 % (0-3) 3 % (0-3) Basophils % (Manual) 0 % (0-2) 0 % (0-2) 0 % (0-2) Band Neutrophils 4 % (0-8) 0 % (0-8) 0 % (0-8) Platelet Estimate Decreased Decreased Decreased Platelet Morphology Normal Normal Normal Hypochromasia 1+ 1+ Anisocytosis 1+ 1+ 1+ Sodium Level 138 MMOL/L (136-145) 141 MMOL/L (136-145) 142 MMOL/L (136-145) Potassium Level 3.7 MMOL/L (3.5-5.1) 4.0 MMOL/L (3.5-5.1) 3.8 MMOL/L (3.5-5.1) Chloride Level 96 MMOL/L (98-107) 100 MMOL/L (98-107) 101 MMOL/L (98-107) Carbon Dioxide Level 32 MMOL/L (21-32) 31 MMOL/L (21-32) 31 MMOL/L (21-32) Anion Gap 10 mmol/L (5-15) 10 mmol/L (5-15) 10 mmol/L (5-15) Blood Urea Nitrogen 36 mg/dL (7-18) 47 mg/dL (7-18) 55 mg/dL (7-18) Creatinine 3.2 MG/DL (0.55-1.30) 3.7 MG/DL (0.55-1.30) 4.0 MG/DL (0.55-1.30) Estimat Glomerular Filtration Rate 13.9 mL/min (>60) 11.8 mL/min (>60) 10.8 mL/min (>60) Glucose Level 94 MG/DL (74-106) 125 MG/DL (74-106) 81 MG/DL (74-106) Calcium Level 9.4 MG/DL (8.5-10.1) 9.3 MG/DL (8.5-10.1) 9.2 MG/DL (8.5-10.1) Phosphorus Level 3.8 MG/DL (2.5-4.9) 5.3 MG/DL (2.5-4.9) 5.5 MG/DL (2.5-4.9) Total Bilirubin 0.5 MG/DL (0.2-1.0) 0.5 MG/DL (0.2-1.0) 0.4 MG/DL (0.2-1.0) Aspartate Amino Transf (AST/SGOT) 30 U/L (15-37) 26 U/L (15-37) 19 U/L (15-37) Alanine Aminotransferase (ALT/SGPT) 8 U/L (12-78) 14 U/L (12-78) 10 U/L (12-78) Alkaline Phosphatase 122 U/L (46-116) 121 U/L (46-116) 94 U/L (46-116) C-Reactive Protein, Quantitative 14.2 mg/dL (0.00-0.90) 12.2 mg/dL (0.00-0.90) 7.4 mg/dL (0.00-0.90) Pro-B-Type Natriuretic Peptide 36647 pg/mL (0-125) 19647 pg/mL (0-125) 45385 pg/mL (0-125) Total Protein 5.9 G/DL (6.4-8.2) 6.0 G/DL (6.4-8.2) 4.9 G/DL (6.4-8.2) Albumin 1.4 G/DL (3.4-5.0) 1.5 G/DL (3.4-5.0) 1.3 G/DL (3.4-5.0) Globulin 4.5 g/dL 4.5 g/dL 3.6 g/dL Albumin/Globulin Ratio 0.3 (1.0-2.7) 0.3 (1.0-2.7) 0.4 (1.0-2.7) Arterial Blood pH 7.521 (7.350-7.450) Arterial Blood Partial Pressure CO2 44.0 mmHg (35.0-45.0) Arterial Blood Partial Pressure O2 47.7 mmHg (75.0-100.0) Arterial Blood HCO3 35.2 mmol/L (22.0-26.0) Arterial Blood Oxygen Saturation 83.8 % (95-100) Arterial Blood Base Excess 11.3 (-2-2) Cuauhtemoc Test Positive Differential Total Cells Counted 100 100 Lactic Acid Level 0.70 mmol/L (0.4-2.0) Uric Acid 5.9 MG/DL (2.6-7.2) Magnesium Level 2.2 MG/DL (1.8-2.4) 2.2 MG/DL (1.8-2.4) Troponin I 0.004 ng/mL (0.000-0.056) Prothrombin Time 12.0 SEC (9.30-11.50) Prothromb Time International Ratio 1.1 (0.9-1.1) Activated Partial Thromboplast Time 32 SEC (23-33) Height (Feet): 5 Height (Inches): 4.00 Weight (Pounds): 100 Objective gen: nad pulm: on venturimask cv: rrr, no gmr abd: sfot, nt, nd ext: no cce Gio Rob MD Aug 11, 2019 15:52
--- NOTE | 2019-08-11 21:03 | General Progress Note ---
Assessment/Plan Status: not improved, unchanged, deteriorating Assessment/Plan: Assessment - Resp failure - thrombocytopenia - Renal failure - aspiration risk - anemia Recommendations - hold off on further NGT attempts - Consider heme opinion re low platelets - IVF - can place PEG once respiratory/Heme issues corrected Subjective Allergies: Coded Allergies: VANCOMYCIN (Unverified Allergy, Unknown, 08/02/19) Subjective above noted seen in ICU d/w RN some bloody secretions aspirated Objective Last 24 Hour Vital Signs Date Time Temp Pulse Resp B/P (MAP) Pulse Ox O2 Delivery O2 Flow Rate FiO2 08/11/19 20:00 130 19 49 08/11/19 19:57 97.7 47 13 100/41 (60) 23 08/11/19 19:55 60 15 115/59 (77) 76 08/11/19 19:51 93 18 201/113 (142) 97 08/11/19 19:50 95 20 89 08/11/19 19:45 93 20 94 08/11/19 19:40 88 19 96 08/11/19 19:35 80 20 92 08/11/19 19:30 77 20 93 08/11/19 19:00 98.0 66 18 112/68 (83) 93 08/11/19 18:00 64 17 150/68 (95) 100 08/11/19 17:41 154/59 08/11/19 17:00 55 14 154/59 (90) 93 08/11/19 16:28 54 08/11/19 16:00 Venturi Mask 10.0 Venturi Mask 14.0 Venturi Mask 10.0 08/11/19 16:00 14.0 55 08/11/19 16:00 56 14 157/61 (93) 99 08/11/19 15:00 53 11 140/59 (86) 99 08/11/19 14:00 56 13 151/62 (91) 98 08/11/19 13:00 54 12 148/62 (90) 97 08/11/19 12:26 146/60 08/11/19 12:00 55 08/11/19 12:00 Venturi Mask 14.0 Venturi Mask 10.0 Venturi Mask 10.0 08/11/19 12:00 14.0 55 08/11/19 12:00 97.0 54 11 146/60 (88) 98 08/11/19 11:17 63 13 157/55 (89) 96 08/11/19 11:00 53 17 89/30 (49) 99 08/11/19 10:00 64 19 135/78 (97) 98 08/11/19 09:05 57 11 149/92 (111) 98 08/11/19 08:00 14.0 55 08/11/19 08:00 62 08/11/19 08:00 97.7 52 10 144/51 (82) 97 08/11/19 08:00 Venturi Mask 14.0 Venturi Mask 10.0 Venturi Mask 10.0 08/11/19 07:00 63 22 154/42 (79) 94 08/11/19 06:00 55 14 162/52 (88) 98 08/11/19 05:52 162/52 08/11/19 05:00 53 19 162/52 (88) 98 08/11/19 04:00 Venturi Mask 10.0 Venturi Mask 10.0 Venturi Mask 10.0 08/11/19 04:00 97.8 66 18 161/107 (125) 98 08/11/19 04:00 57 08/11/19 03:00 65 17 149/49 (82) 91 08/11/19 02:00 53 15 172/53 (92) 100 08/11/19 01:00 57 18 164/50 (88) 100 08/11/19 00:20 173/55 08/11/19 00:00 Venturi Mask 10.0 Venturi Mask 10.0 Venturi Mask 10.0 08/11/19 00:00 51 08/11/19 00:00 97.4 55 11 173/55 (94) 100 08/10/19 23:00 52 14 165/56 (92) 97 08/10/19 22:00 56 15 179/61 (100) 98 Intake and Output 08/10/19 08/11/19 19:00 07:00 Intake Total 55 ml 55 ml Output Total 65 ml 60 ml Balance -10 ml -5 ml IV Total 55 ml 55 ml Output Urine Total 65 ml 60 ml Laboratory Tests 08/11/19 05:15: White Blood Count 4.4L, Red Blood Count 2.23L, Hemoglobin 6.7*L, Hematocrit 19.7L, Mean Corpuscular Volume 88, Mean Corpuscular Hemoglobin 29.8, Mean Corpuscular Hemoglobin Concent 33.8, Red Cell Distribution Width 16.2H, Platelet Count 48L, Mean Platelet Volume 9.5, Neutrophils (%) (Auto) , Lymphocytes (%) (Auto) , Monocytes (%) (Auto) , Eosinophils (%) (Auto) , Basophils (%) (Auto) , Differential Total Cells Counted 100, Neutrophils % ( Manual) 46, Lymphocytes % (Manual) 43, Monocytes % (Manual) 8, Eosinophils % ( Manual) 3, Basophils % (Manual) 0, Band Neutrophils 0, Platelet Estimate DecreasedL, Platelet Morphology Normal, Hypochromasia 1+, Anisocytosis 1+, Prothrombin Time 12.0H, Prothromb Time International Ratio 1.1, Activated Partial Thromboplast Time 32, Sodium Level 142, Potassium Level 3.8, Chloride Level 101, Carbon Dioxide Level 31, Anion Gap 10, Blood Urea Nitrogen 55H, Creatinine 4.0H, Estimat Glomerular Filtration Rate 10.8, Glucose Level 81, Calcium Level 9.2, Phosphorus Level 5.5H, Magnesium Level 2.2, Total Bilirubin 0.4, Aspartate Amino Transf (AST/SGOT) 19, Alanine Aminotransferase (ALT/SGPT) 10L, Alkaline Phosphatase 94, C-Reactive Protein, Quantitative 7.4H, Pro-B-Type Natriuretic Peptide 23127N, Total Protein 4.9L, Albumin 1.3L, Globulin 3.6, Albumin/Globulin Ratio 0.4L Height (Feet): 5 Height (Inches): 4.00 Weight (Pounds): 100 Objective Debilitated WW NCAT supple scattered ronchi RR abd soft ND NT Cristy Elizondo MD Aug 11, 2019 21:03
[2019-08-12] VITALS (29 sets, daily range): BP systolic 140–186; BP diastolic 44–89
[2019-08-12] MEDS ORDERED: Atropine Inj 1mg/10ml Syr IVP SCH (01:30)
--- NOTE | 2019-08-12 03:45 | Progress Note ---
DATE: 08/11/2019 CARDIOLOGY PROGRESS NOTE SUBJECTIVE: The patient's condition has deteriorated. She is critical with guarded prognosis. The patient is in the intensive care unit. She has had episodes of hypotension, bradycardia, and remains increasingly hypoxic. Arterial blood gas was reviewed, 7.46, 49, 81. PHYSICAL EXAMINATION: VITAL SIGNS: Blood pressure 164/70, pulse 69, respiratory rate 14. LUNGS: Accessary muscle use. Bilateral rhonchi. HEART: Regular rhythm and rate. Normal S1, S2. ABDOMEN: Soft. EXTREMITIES: No edema. IMPRESSION: 1. Shock. 2. Sepsis. 3. Labile hypertension . 4. Respiratory failure. 5. Respiratory acidosis. 6. End-stage renal disease. 7. Thrombocytopenia. 8. Anemia. PLAN: 1. BiPAP will be added. 2. Continue antimicrobials. 3. Hemodialysis with ultrafiltration. 4. Respiratory hygiene. 5. DVT prophylaxis. 6. Transfusions for hemoglobin below 7 and active bleeding with low platelet count. Abel Stubbs M.D. DR: Lety JOB#: [id number] CC:
[2019-08-12] MEDS: Nitroglycerin 2% oint pkt TOPIC SCH ×4 (05:53→23:54)
[2019-08-12] MEDS: DiphenhydrAMINE 50mg/ml Inj IVP PRN (05:53)
[2019-08-12 06:52] LABS: HEMATOCRIT 26.4 % (37.0-47.0); HEMOGLOBIN 9.2 G/DL (12.0-16.0); MEAN CORPUSCULAR VOLUME 87 FL (80-99); PLATELET COUNT 60 K/UL (150-450); RED BLOOD COUNT 3.04 M/UL (4.20-5.40); WHITE BLOOD COUNT 6.7 K/UL (4.8-10.8)
--- NOTE | 2019-08-12 07:15 | General Progress Note ---
Assessment/Plan Problem List: (1) Failure to thrive (0-17) ICD Codes: R62.51 - Failure to thrive (0-17) SNOMED: 373479713 (2) Hypertensive kidney disease ICD Codes: I12.9 - Hypertensive chronic kidney disease with stage 1 through stage 4 chronic kidney disease, or unspecified chronic kidney disease SNOMED: 72991885 (3) Pneumonia ICD Codes: J18.9 - Pneumonia, unspecified organism SNOMED: 447866545 Qualifiers: Qualified Codes: J18.9 - Pneumonia, unspecified organism (4) ESRD (end stage renal disease) ICD Codes: N18.6 - End stage renal disease SNOMED: 66176315 (5) Septic arthritis ICD Codes: M00.9 - Pyogenic arthritis, unspecified SNOMED: 107248806 (6) Thrombocytopenia ICD Codes: D69.6 - Thrombocytopenia, unspecified SNOMED: 117128225 (7) Hypotension ICD Codes: I95.9 - Hypotension, unspecified SNOMED: 01899300 Qualifiers: Qualified Codes: I95.3 - Hypotension of hemodialysis (8) Malnutrition ICD Codes: E46 - Unspecified protein-calorie malnutrition SNOMED: 32312082 Status: not improved, unchanged, deteriorating Assessment/Plan: nurse instructed to remove clonidine patch cont icu care o2/bipap prn resp rx/suctioning transfuse plts and rbcs as needed iv PPI iv abx dc perm cath when plts better. bailey for urinary retention iv bp rx eventually needs GT when resp status stable- will d/w pulm and ID d/w family(son) x 20 mins critical and guarded gt when stable Subjective ROS Limited/Unobtainable: No Constitutional: Reports: malaise, weakness HEENT: Reports: no symptoms Cardiovascular: Reports: no symptoms Respiratory: Reports: cough Gastrointestinal/Abdominal: Reports: no symptoms Genitourinary: Reports: no symptoms Neurologic/Psychiatric: Reports: pre-existing deficit Endocrine: Reports: no symptoms Hematologic/Lymphatic: Reports: anemia Allergies: Coded Allergies: VANCOMYCIN (Unverified Allergy, Unknown, 08/02/19) All Systems: reviewed and negative except above Subjective bradycardic on bipap. received atropine x 1. confused. moaning. had 1 episode of hemoptysis. still has clonidine patch on chest wall(even though it was discontinued on 2/25) s/p HD with 1 unit of prbc last night. Objective Last 24 Hour Vital Signs Date Time Temp Pulse Resp B/P (MAP) Pulse Ox O2 Delivery O2 Flow Rate FiO2 08/12/19 06:00 49 12 178/88 (118) 100 08/12/19 05:53 176/72 08/12/19 05:23 46 14 100 100 08/12/19 05:00 40 14 177/72 (107) 100 08/12/19 04:30 45 14 174/79 (110) 100 08/12/19 04:00 Bi-pap Bi-pap Bi-pap 08/12/19 04:00 97.5 46 17 177/80 (112) 100 08/12/19 04:00 100 08/12/19 03:49 46 08/12/19 03:30 53 19 155/89 (111) 100 08/12/19 03:30 53 22 100 100 08/12/19 03:00 62 18 168/81 (110) 100 08/12/19 02:00 48 15 176/74 (108) 100 08/12/19 01:30 50 14 186/64 (104) 100 08/12/19 01:09 56 18 100 100 08/12/19 01:00 54 13 165/75 (105) 100 08/12/19 00:30 59 18 163/77 (105) 99 08/12/19 00:00 97.4 71 14 141/75 (97) 92 08/12/19 00:00 Bi-pap Bi-pap Bi-pap 08/12/19 00:00 100 08/11/19 23:54 149/65 08/11/19 23:48 53 35 99 Bi-Pap 100 08/11/19 23:35 58 37 99 100 08/11/19 23:30 59 14 164/70 (101) 99 08/11/19 23:00 61 08/11/19 23:00 59 13 161/64 (96) 100 08/11/19 22:45 60 15 145/66 (92) 100 08/11/19 22:30 65 14 142/76 (98) 98 08/11/19 22:15 61 14 145/66 (92) 100 08/11/19 22:00 63 14 152/64 (93) 100 08/11/19 21:45 64 13 142/67 (92) 100 08/11/19 21:30 73 15 132/79 (96) 99 08/11/19 21:15 73 15 147/70 (95) 100 08/11/19 21:00 70 12 160/72 (101) 100 08/11/19 20:45 82 14 167/79 (108) 100 08/11/19 20:30 79 14 100 08/11/19 20:25 91 18 160/87 (111) 100 08/11/19 20:20 83 12 167/82 (110) 100 08/11/19 20:18 88 13 164/87 (112) 100 08/11/19 20:15 92 13 161/105 (123) 100 08/11/19 20:10 104 16 100 08/11/19 20:09 108 10 167/98 (121) 100 08/11/19 20:06 125 18 180/97 (124) 100 08/11/19 20:06 98 Non-Rebreather 15.0 100 08/11/19 20:05 131 19 100 08/11/19 20:00 130 19 49 08/11/19 20:00 Non-Rebreather Non-Rebreather Non-Rebreather 08/11/19 20:00 100 08/11/19 19:57 97.7 47 13 100/41 (60) 23 08/11/19 19:55 60 15 115/59 (77) 76 08/11/19 19:54 44 08/11/19 19:52 39 08/11/19 19:51 93 18 201/113 (142) 97 08/11/19 19:50 95 20 89 08/11/19 19:45 93 20 94 08/11/19 19:40 88 19 96 08/11/19 19:35 80 20 92 08/11/19 19:30 77 20 93 08/11/19 19:00 98.0 66 18 112/68 (83) 93 08/11/19 18:00 64 17 150/68 (95) 100 08/11/19 17:41 154/59 08/11/19 17:00 55 14 154/59 (90) 93 08/11/19 16:28 54 08/11/19 16:00 Venturi Mask 10.0 Venturi Mask 14.0 Venturi Mask 10.0 08/11/19 16:00 14.0 55 08/11/19 16:00 56 14 157/61 (93) 99 08/11/19 15:00 53 11 140/59 (86) 99 08/11/19 14:00 56 13 151/62 (91) 98 08/11/19 13:00 54 12 148/62 (90) 97 08/11/19 12:26 146/60 08/11/19 12:00 55 08/11/19 12:00 Venturi Mask 14.0 Venturi Mask 10.0 Venturi Mask 10.0 08/11/19 12:00 14.0 55 08/11/19 12:00 97.0 54 11 146/60 (88) 98 08/11/19 11:17 63 13 157/55 (89) 96 08/11/19 11:00 53 17 89/30 (49) 99 08/11/19 10:00 64 19 135/78 (97) 98 08/11/19 09:05 57 11 149/92 (111) 98 08/11/19 08:00 14.0 55 08/11/19 08:00 62 08/11/19 08:00 97.7 52 10 144/51 (82) 97 08/11/19 08:00 Venturi Mask 14.0 Venturi Mask 10.0 Venturi Mask 10.0 Intake and Output 08/11/19 08/12/19 19:00 07:00 Intake Total 55 ml 55 ml Output Total 110 ml 1075 ml Balance -55 ml -1020 ml IV Total 55 ml 55 ml Output Urine Total 110 ml 75 ml Hemodialysis UF 1000 ml Laboratory Tests 08/11/19 21:51: Arterial Blood pH 7.465H, Arterial Blood Partial Pressure CO2 49.1H, Arterial Blood Partial Pressure O2 81.0, Arterial Blood HCO3 34.5H, Arterial Blood Oxygen Saturation 95.0, Arterial Blood Base Excess 9.7*H, Cu[place]htemoc Test Positive 08/12/19 04:50: White Blood Count 6.7#, Red Blood Count 3.04L, Hemoglobin 9.2#L, Hematocrit 26.4 #L, Mean Corpuscular Volume 87, Mean Corpuscular Hemoglobin 30.3, Mean Corpuscular Hemoglobin Concent 34.9, Red Cell Distribution Width 15.0H, Platelet Count 60L, Mean Platelet Volume 7.9, Neutrophils (%) (Auto) , Lymphocytes (%) (Auto) , Monocytes (%) (Auto) , Eosinophils (%) (Auto) , Basophils (%) (Auto) , Neutrophils % (Manual) [Pending], Lymphocytes % (Manual) [Pending], Platelet Estimate [Pending], Platelet Morphology [Pending], Sodium Level [Pending], Potassium Level [Pending], Chloride Level [Pending], Carbon Dioxide Level [Pending], Blood Urea Nitrogen [Pending], Creatinine [Pending], Estimat Glomerular Filtration Rate [Pending], Glucose Level [Pending], Calcium Level [Pending], Phosphorus Level [Pending], Total Bilirubin [Pending], Aspartate Amino Transf (AST/SGOT) [Pending], Alanine Aminotransferase (ALT/SGPT ) [Pending], Alkaline Phosphatase [Pending], Troponin I [Pending], C-Reactive Protein, Quantitative [Pending], Pro-B-Type Natriuretic Peptide [Pending], Total Protein [Pending], Albumin [Pending], Globulin [Pending] Height (Feet): 5 Height (Inches): 4.00 Weight (Pounds): 100 Skin: normal pigmentation, warm/dry Objective General Appearance: WD/WN, awake/moaning. on bipap Neck: supple Cardiovascular: normal rate Respiratory/Chest: rhonchi - bilaterally Abdomen: normal bowel sounds, non tender, soft, no organomegaly Edema: no edema noted Arm (L), no edema noted Arm (R), no edema noted Leg (L), no edema noted Leg (R), no edema noted Pedal (L), no edema noted Pedal (R), no edema noted Generalized Neurologic: disoriented, aphasia Nate Beltran MD Aug 12, 2019 07:15
[2019-08-12 07:31] LABS: ALANINE AMINOTRANSFERASE 15 U/L (12-78); ALBUMIN 1.2 G/DL (3.4-5.0); ALBUMIN/GLOBULIN RATIO 0.3 (1.0-2.7); ALKALINE PHOSPHATASE 109 U/L (46-116); ANION GAP 12 mmol/L (5-15); ASPARTATE AMINO TRANSFERASE 25 U/L (15-37); BILIRUBIN,TOTAL 0.6 MG/DL (0.2-1.0); BLOOD UREA NITROGEN 34 mg/dL (7-18); CALCIUM 8.5 MG/DL (8.5-10.1); CARBON DIOXIDE 26 MMOL/L (21-32); CHLORIDE 103 MMOL/L (98-107); CREATININE 3.2 MG/DL (0.55-1.30); PHOSPHORUS 3.6 MG/DL (2.5-4.9); POTASSIUM 3.5 MMOL/L (3.5-5.1); SODIUM 141 MMOL/L (136-145)
[2019-08-12] MEDS: Meropenem 500 MG in NS 55 ML IVPB SCH ×2 (08:34→20:35)
[2019-08-12] MEDS: Pantoprazole Inj IVP SCH ×2 (08:34→20:35)
--- NOTE | 2019-08-12 08:51 | Critical Care Progress Note ---
Assessment/Plan Assessment/Plan respiratory failure hemoptysis hypoxemia chronic renal failure toxic met encephalopathy severe protein calorie malnutrition cachexia PLAN care noted antibiotics BIPAP for now monitor as is ICU care discussed critical at present requires ICU management feeds as able elevate head medications/laboratory data/nursing notes/ICU care reviewed in detail note reviewed and edited care discussed with RN and RT ICU time spent 40 minutes Critical Care - Subjective Interval Events: doing poorly on BIPAP care noted d/w RN still full code congested and nearly obtunded acid base reviewed ROS Limited/Unobtainable: Yes Condition: critical EKG Rhythm: Sinus Rhythm I&O: Intake and Output 08/11/19 08/12/19 19:00 07:00 Intake Total 55 ml 55 ml Output Total 110 ml 1075 ml Balance -55 ml -1020 ml IV Total 55 ml 55 ml Output Urine Total 110 ml 75 ml Hemodialysis UF 1000 ml Critical Care - Objective Last 24 Hour Vital Signs Date Time Temp Pulse Resp B/P (MAP) Pulse Ox O2 Delivery O2 Flow Rate FiO2 08/12/19 08:05 51 23 100 40 08/12/19 07:00 50 17 160/75 (103) 100 08/12/19 06:51 47 20 100 100 08/12/19 06:51 98 Bi-Pap 100 08/12/19 06:00 49 12 178/88 (118) 100 08/12/19 05:53 176/72 08/12/19 05:23 46 14 100 100 08/12/19 05:00 40 14 177/72 (107) 100 08/12/19 04:30 45 14 174/79 (110) 100 08/12/19 04:00 Bi-pap Bi-pap Bi-pap 08/12/19 04:00 97.5 46 17 177/80 (112) 100 08/12/19 04:00 100 08/12/19 03:49 46 08/12/19 03:30 53 19 155/89 (111) 100 08/12/19 03:30 53 22 100 100 08/12/19 03:00 62 18 168/81 (110) 100 08/12/19 02:00 48 15 176/74 (108) 100 08/12/19 01:30 50 14 186/64 (104) 100 08/12/19 01:09 56 18 100 100 08/12/19 01:00 54 13 165/75 (105) 100 08/12/19 00:30 59 18 163/77 (105) 99 08/12/19 00:00 97.4 71 14 141/75 (97) 92 08/12/19 00:00 Bi-pap Bi-pap Bi-pap 08/12/19 00:00 100 08/11/19 23:54 149/65 08/11/19 23:48 53 35 99 Bi-Pap 100 08/11/19 23:35 58 37 99 100 08/11/19 23:30 59 14 164/70 (101) 99 08/11/19 23:00 61 08/11/19 23:00 59 13 161/64 (96) 100 08/11/19 22:45 60 15 145/66 (92) 100 08/11/19 22:30 65 14 142/76 (98) 98 08/11/19 22:15 61 14 145/66 (92) 100 08/11/19 22:00 63 14 152/64 (93) 100 08/11/19 21:45 64 13 142/67 (92) 100 08/11/19 21:30 73 15 132/79 (96) 99 08/11/19 21:15 73 15 147/70 (95) 100 08/11/19 21:00 70 12 160/72 (101) 100 08/11/19 20:45 82 14 167/79 (108) 100 08/11/19 20:30 79 14 100 08/11/19 20:25 91 18 160/87 (111) 100 08/11/19 20:20 83 12 167/82 (110) 100 08/11/19 20:18 88 13 164/87 (112) 100 08/11/19 20:15 92 13 161/105 (123) 100 08/11/19 20:10 104 16 100 08/11/19 20:09 108 10 167/98 (121) 100 08/11/19 20:06 125 18 180/97 (124) 100 08/11/19 20:06 98 Non-Rebreather 15.0 100 08/11/19 20:05 131 19 100 08/11/19 20:00 130 19 49 08/11/19 20:00 Non-Rebreather Non-Rebreather Non-Rebreather 08/11/19 20:00 100 08/11/19 19:57 97.7 47 13 100/41 (60) 23 08/11/19 19:55 60 15 115/59 (77) 76 08/11/19 19:54 44 08/11/19 19:52 39 08/11/19 19:51 93 18 201/113 (142) 97 08/11/19 19:50 95 20 89 08/11/19 19:45 93 20 94 08/11/19 19:40 88 19 96 08/11/19 19:35 80 20 92 08/11/19 19:30 77 20 93 08/11/19 19:00 98.0 66 18 112/68 (83) 93 08/11/19 18:00 64 17 150/68 (95) 100 08/11/19 17:41 154/59 08/11/19 17:00 55 14 154/59 (90) 93 08/11/19 16:28 54 08/11/19 16:00 Venturi Mask 10.0 Venturi Mask 14.0 Venturi Mask 10.0 08/11/19 16:00 14.0 55 08/11/19 16:00 56 14 157/61 (93) 99 08/11/19 15:00 53 11 140/59 (86) 99 08/11/19 14:00 56 13 151/62 (91) 98 08/11/19 13:00 54 12 148/62 (90) 97 08/11/19 12:26 146/60 08/11/19 12:00 55 08/11/19 12:00 Venturi Mask 14.0 Venturi Mask 10.0 Venturi Mask 10.0 08/11/19 12:00 14.0 55 08/11/19 12:00 97.0 54 11 146/60 (88) 98 08/11/19 11:17 63 13 157/55 (89) 96 08/11/19 11:00 53 17 89/30 (49) 99 08/11/19 10:00 64 19 135/78 (97) 98 08/11/19 09:05 57 11 149/92 (111) 98 Labs: Labs Test 08/09/19 15:12 08/10/19 05:10 08/11/19 05:15 08/11/19 21:51 Arterial Blood pH 7.521 (7.350-7.450) 7.465 (7.350-7.450) Arterial Blood Partial Pressure CO2 44.0 mmHg (35.0-45.0) 49.1 mmHg (35.0-45.0) Arterial Blood Partial Pressure O2 47.7 mmHg (75.0-100.0) 81.0 mmHg (75.0-100.0) Arterial Blood HCO3 35.2 mmol/L (22.0-26.0) 34.5 mmol/L (22.0-26.0) Arterial Blood Oxygen Saturation 83.8 % (95-100) 95.0 % (95-100) Arterial Blood Base Excess 11.3 (-2-2) 9.7 (-2-2) Cuauhtemoc Test Positive Positive White Blood Count 4.3 K/UL (4.8-10.8) 4.4 K/UL (4.8-10.8) Red Blood Count 3.15 M/UL (4.20-5.40) 2.23 M/UL (4.20-5.40) Hemoglobin 9.4 G/DL (12.0-16.0) 6.7 G/DL (12.0-16.0) Hematocrit 27.6 % (37.0-47.0) 19.7 % (37.0-47.0) Mean Corpuscular Volume 88 FL (80-99) 88 FL (80-99) Mean Corpuscular Hemoglobin 29.9 PG (27.0-31.0) 29.8 PG (27.0-31.0) Mean Corpuscular Hemoglobin Concent 34.0 G/DL (32.0-36.0) 33.8 G/DL (32.0-36.0) Red Cell Distribution Width 16.0 % (11.6-14.8) 16.2 % (11.6-14.8) Platelet Count 43 K/UL (150-450) 48 K/UL (150-450) Mean Platelet Volume 9.4 FL (6.5-10.1) 9.5 FL (6.5-10.1) Neutrophils (%) (Auto) % (45.0-75.0) % (45.0-75.0) Lymphocytes (%) (Auto) % (20.0-45.0) % (20.0-45.0) Monocytes (%) (Auto) % (1.0-10.0) % (1.0-10.0) Eosinophils (%) (Auto) % (0.0-3.0) % (0.0-3.0) Basophils (%) (Auto) % (0.0-2.0) % (0.0-2.0) Differential Total Cells Counted 100 100 Neutrophils % (Manual) 67 % (45-75) 46 % (45-75) Lymphocytes % (Manual) 30 % (20-45) 43 % (20-45) Monocytes % (Manual) 3 % (1-10) 8 % (1-10) Eosinophils % (Manual) 0 % (0-3) 3 % (0-3) Basophils % (Manual) 0 % (0-2) 0 % (0-2) Band Neutrophils 0 % (0-8) 0 % (0-8) Platelet Estimate Decreased Decreased Platelet Morphology Normal Normal Anisocytosis 1+ 1+ Sodium Level 141 MMOL/L (136-145) 142 MMOL/L (136-145) Potassium Level 4.0 MMOL/L (3.5-5.1) 3.8 MMOL/L (3.5-5.1) Chloride Level 100 MMOL/L (98-107) 101 MMOL/L (98-107) Carbon Dioxide Level 31 MMOL/L (21-32) 31 MMOL/L (21-32) Anion Gap 10 mmol/L (5-15) 10 mmol/L (5-15) Blood Urea Nitrogen 47 mg/dL (7-18) 55 mg/dL (7-18) Creatinine 3.7 MG/DL (0.55-1.30) 4.0 MG/DL (0.55-1.30) Estimat Glomerular Filtration Rate 11.8 mL/min (>60) 10.8 mL/min (>60) Glucose Level 125 MG/DL (74-106) 81 MG/DL (74-106) Lactic Acid Level 0.70 mmol/L (0.4-2.0) Uric Acid 5.9 MG/DL (2.6-7.2) Calcium Level 9.3 MG/DL (8.5-10.1) 9.2 MG/DL (8.5-10.1) Phosphorus Level 5.3 MG/DL (2.5-4.9) 5.5 MG/DL (2.5-4.9) Magnesium Level 2.2 MG/DL (1.8-2.4) 2.2 MG/DL (1.8-2.4) Total Bilirubin 0.5 MG/DL (0.2-1.0) 0.4 MG/DL (0.2-1.0) Aspartate Amino Transf (AST/SGOT) 26 U/L (15-37) 19 U/L (15-37) Alanine Aminotransferase (ALT/SGPT) 14 U/L (12-78) 10 U/L (12-78) Alkaline Phosphatase 121 U/L (46-116) 94 U/L (46-116) Troponin I 0.004 ng/mL (0.000-0.056) C-Reactive Protein, Quantitative 12.2 mg/dL (0.00-0.90) 7.4 mg/dL (0.00-0.90) Pro-B-Type Natriuretic Peptide 39370 pg/mL (0-125) 50916 pg/mL (0-125) Total Protein 6.0 G/DL (6.4-8.2) 4.9 G/DL (6.4-8.2) Albumin 1.5 G/DL (3.4-5.0) 1.3 G/DL (3.4-5.0) Globulin 4.5 g/dL 3.6 g/dL Albumin/Globulin Ratio 0.3 (1.0-2.7) 0.4 (1.0-2.7) Hypochromasia 1+ Prothrombin Time 12.0 SEC (9.30-11.50) Prothromb Time International Ratio 1.1 (0.9-1.1) Activated Partial Thromboplast Time 32 SEC (23-33) Test 08/12/19 04:50 08/12/19 07:45 White Blood Count 6.7 K/UL (4.8-10.8) Red Blood Count 3.04 M/UL (4.20-5.40) Hemoglobin 9.2 G/DL (12.0-16.0) Hematocrit 26.4 % (37.0-47.0) Mean Corpuscular Volume 87 FL (80-99) Mean Corpuscular Hemoglobin 30.3 PG (27.0-31.0) Mean Corpuscular Hemoglobin Concent 34.9 G/DL (32.0-36.0) Red Cell Distribution Width 15.0 % (11.6-14.8) Platelet Count 60 K/UL (150-450) Mean Platelet Volume 7.9 FL (6.5-10.1) Neutrophils (%) (Auto) % (45.0-75.0) Lymphocytes (%) (Auto) % (20.0-45.0) Monocytes (%) (Auto) % (1.0-10.0) Eosinophils (%) (Auto) % (0.0-3.0) Basophils (%) (Auto) % (0.0-2.0) Sodium Level 141 MMOL/L (136-145) Potassium Level 3.5 MMOL/L (3.5-5.1) Chloride Level 103 MMOL/L (98-107) Carbon Dioxide Level 26 MMOL/L (21-32) Anion Gap 12 mmol/L (5-15) Blood Urea Nitrogen 34 mg/dL (7-18) Creatinine 3.2 MG/DL (0.55-1.30) Estimat Glomerular Filtration Rate 13.9 mL/min (>60) Glucose Level 101 MG/DL (74-106) Calcium Level 8.5 MG/DL (8.5-10.1) Phosphorus Level 3.6 MG/DL (2.5-4.9) Total Bilirubin 0.6 MG/DL (0.2-1.0) Aspartate Amino Transf (AST/SGOT) 25 U/L (15-37) Alanine Aminotransferase (ALT/SGPT) 15 U/L (12-78) Alkaline Phosphatase 109 U/L (46-116) Troponin I 0.126 ng/mL (0.000-0.056) C-Reactive Protein, Quantitative 5.8 mg/dL (0.00-0.90) Pro-B-Type Natriuretic Peptide 93860 pg/mL (0-125) Total Protein 5.2 G/DL (6.4-8.2) Albumin 1.2 G/DL (3.4-5.0) Globulin 4.0 g/dL Albumin/Globulin Ratio 0.3 (1.0-2.7) Arterial Blood pH 7.510 (7.350-7.450) Arterial Blood Partial Pressure CO2 42.7 mmHg (35.0-45.0) Arterial Blood Partial Pressure O2 453.6 mmHg (75.0-100.0) Arterial Blood HCO3 33.3 mmol/L (22.0-26.0) Arterial Blood Oxygen Saturation 99.0 % (95-100) Arterial Blood Base Excess 9.4 (-2-2) Cuauhtemoc Test Positive Objective: WDWN NAD reduced breath sounds bilaterally without rhonchi or wheeze [id number] without MRG NABS nontender no HSM no CCE contractures on BIPAP poorly responsive nonfocal Accucheck: 94 Malcolm Cruz MD Aug 12, 2019 08:51
--- NOTE | 2019-08-12 10:01 | Nephrology Progress Note ---
Assessment/Plan Problem List: (1) ESRD (end stage renal disease) on dialysis (2) Malnutrition (3) Anemia in CKD (chronic kidney disease) (4) Hypotension (5) Thrombocytopenia (6) Sepsis Assessment: klebsiella in blood Assessment -Early sepsis with shock. -Healthcare-associated pneumonia. -Severe protein-calorie malnutrition. -Thrombocytopenia. - End-stage renal disease. - History of hypertension. - Bradycardia. - HypoThyroid Plan permacath not removed by IR , citing low platelets Dialysis today 08/11 Transfusion as needed Patient has hematemesis Plan is transfuse platelets and remove cath meds IV as possible transfused HD 08/07 remove dialysis cath: Klebsiella in blood BC in am NGT feeding check labs BS control keep BP and BS in check Inflammatory markers per orders Subjective ROS Limited/Unobtainable: Yes Objective Objective Last 24 Hour Vital Signs Date Time Temp Pulse Resp B/P (MAP) Pulse Ox O2 Delivery O2 Flow Rate FiO2 08/12/19 09:14 54 26 100 40 08/12/19 09:00 54 20 162/68 (99) 100 08/12/19 08:05 51 23 100 40 08/12/19 08:00 97.7 47 18 163/72 (102) 100 08/12/19 08:00 Bi-pap Bi-pap Bi-pap 08/12/19 07:00 50 17 160/75 (103) 100 08/12/19 06:51 47 20 100 100 08/12/19 06:51 98 Bi-Pap 100 08/12/19 06:00 49 12 178/88 (118) 100 08/12/19 05:53 176/72 08/12/19 05:23 46 14 100 100 08/12/19 05:00 40 14 177/72 (107) 100 08/12/19 04:30 45 14 174/79 (110) 100 08/12/19 04:00 Bi-pap Bi-pap Bi-pap 08/12/19 04:00 97.5 46 17 177/80 (112) 100 08/12/19 04:00 100 08/12/19 03:49 46 08/12/19 03:30 53 19 155/89 (111) 100 08/12/19 03:30 53 22 100 100 08/12/19 03:00 62 18 168/81 (110) 100 08/12/19 02:00 48 15 176/74 (108) 100 08/12/19 01:30 50 14 186/64 (104) 100 08/12/19 01:09 56 18 100 100 08/12/19 01:00 54 13 165/75 (105) 100 08/12/19 00:30 59 18 163/77 (105) 99 08/12/19 00:00 97.4 71 14 141/75 (97) 92 08/12/19 00:00 Bi-pap Bi-pap Bi-pap 08/12/19 00:00 100 08/11/19 23:54 149/65 08/11/19 23:48 53 35 99 Bi-Pap 100 08/11/19 23:35 58 37 99 100 08/11/19 23:30 59 14 164/70 (101) 99 08/11/19 23:00 61 08/11/19 23:00 59 13 161/64 (96) 100 08/11/19 22:45 60 15 145/66 (92) 100 08/11/19 22:30 65 14 142/76 (98) 98 08/11/19 22:15 61 14 145/66 (92) 100 08/11/19 22:00 63 14 152/64 (93) 100 08/11/19 21:45 64 13 142/67 (92) 100 08/11/19 21:30 73 15 132/79 (96) 99 08/11/19 21:15 73 15 147/70 (95) 100 08/11/19 21:00 70 12 160/72 (101) 100 08/11/19 20:45 82 14 167/79 (108) 100 08/11/19 20:30 79 14 100 08/11/19 20:25 91 18 160/87 (111) 100 08/11/19 20:20 83 12 167/82 (110) 100 08/11/19 20:18 88 13 164/87 (112) 100 08/11/19 20:15 92 13 161/105 (123) 100 08/11/19 20:10 104 16 100 08/11/19 20:09 108 10 167/98 (121) 100 08/11/19 20:06 125 18 180/97 (124) 100 08/11/19 20:06 98 Non-Rebreather 15.0 100 2/27/20 20:05 131 19 100 08/11/19 20:00 130 19 49 08/11/19 20:00 Non-Rebreather Non-Rebreather Non-Rebreather 08/11/19 20:00 100 08/11/19 19:57 97.7 47 13 100/41 (60) 23 08/11/19 19:55 60 15 115/59 (77) 76 08/11/19 19:54 44 08/11/19 19:52 39 08/11/19 19:51 93 18 201/113 (142) 97 08/11/19 19:50 95 20 89 08/11/19 19:45 93 20 94 08/11/19 19:40 88 19 96 08/11/19 19:35 80 20 92 08/11/19 19:30 77 20 93 08/11/19 19:00 98.0 66 18 112/68 (83) 93 08/11/19 18:00 64 17 150/68 (95) 100 08/11/19 17:41 154/59 08/11/19 17:00 55 14 154/59 (90) 93 08/11/19 16:28 54 08/11/19 16:00 Venturi Mask 10.0 Venturi Mask 14.0 Venturi Mask 10.0 08/11/19 16:00 14.0 55 08/11/19 16:00 56 14 157/61 (93) 99 08/11/19 15:00 53 11 140/59 (86) 99 08/11/19 14:00 56 13 151/62 (91) 98 08/11/19 13:00 54 12 148/62 (90) 97 08/11/19 12:26 146/60 08/11/19 12:00 55 08/11/19 12:00 Venturi Mask 14.0 Venturi Mask 10.0 Venturi Mask 10.0 08/11/19 12:00 14.0 55 08/11/19 12:00 97.0 54 11 146/60 (88) 98 08/11/19 11:17 63 13 157/55 (89) 96 08/11/19 11:00 53 17 89/30 (49) 99 Intake and Output 08/11/19 08/12/19 19:00 07:00 Intake Total 55 ml 55 ml Output Total 110 ml 1075 ml Balance -55 ml -1020 ml IV Total 55 ml 55 ml Output Urine Total 110 ml 75 ml Hemodialysis UF 1000 ml Laboratory Tests 08/11/19 21:51: Arterial Blood pH 7.465H, Arterial Blood Partial Pressure CO2 49.1H, Arterial Blood Partial Pressure O2 81.0, Arterial Blood HCO3 34.5H, Arterial Blood Oxygen Saturation 95.0, Arterial Blood Base Excess 9.7*H, Cuauhtemoc Test Positive 08/12/19 04:50: White Blood Count 6.7#, Red Blood Count 3.04L, Hemoglobin 9.2#L, Hematocrit 26.4 #L, Mean Corpuscular Volume 87, Mean Corpuscular Hemoglobin 30.3, Mean Corpuscular Hemoglobin Concent 34.9, Red Cell Distribution Width 15.0H, Platelet Count 60L, Mean Platelet Volume 7.9, Neutrophils (%) (Auto) , Lymphocytes (%) (Auto) , Monocytes (%) (Auto) , Eosinophils (%) (Auto) , Basophils (%) (Auto) , Differential Total Cells Counted 100, Neutrophils % ( Manual) 62, Lymphocytes % (Manual) 32, Monocytes % (Manual) 4, Eosinophils % ( Manual) 1, Basophils % (Manual) 0, Band Neutrophils 1, Platelet Estimate DecreasedL, Platelet Morphology Normal, Anisocytosis 1+, Sodium Level 141, Potassium Level 3.5, Chloride Level 103, Carbon Dioxide Level 26, Anion Gap 12, Blood Urea Nitrogen 34H, Creatinine 3.2H, Estimat Glomerular Filtration Rate 13.9, Glucose Level 101, Calcium Level 8.5, Phosphorus Level 3.6, Total Bilirubin 0.6, Aspartate Amino Transf (AST/SGOT) 25, Alanine Aminotransferase ( ALT/SGPT) 15, Alkaline Phosphatase 109, Troponin I 0.126H, C-Reactive Protein, Quantitative 5.8H, Pro-B-Type Natriuretic Peptide 87280L, Total Protein 5.2L, Albumin 1.2L, Globulin 4.0, Albumin/Globulin Ratio 0.3L 08/12/19 07:45: Arterial Blood pH 7.510H, Arterial Blood Partial Pressure CO2 42.7, Arterial Blood Partial Pressure O2 453.6H, Arterial Blood HCO3 33.3H, Arterial Blood Oxygen Saturation 99.0, Arterial Blood Base Excess 9.4*H, Cuauhtemoc Test Positive Height (Feet): 5 Height (Inches): 4.00 Weight (Pounds): 100 General Appearance: lethargic EENT: other - on BIPAP Cardiovascular: bradycardia Respiratory/Chest: decreased breath sounds Abdomen: soft Objective no change William Blackwood MD Aug 12, 2019 10:01
--- NOTE | 2019-08-12 10:37 | Infectious Diseases Prog Note ---
Assessment/Plan Assessment/Plan antibiotics : meropenem A 1. klebsiella sepsis 2. e.coli UTI 3. right shoulder septic arthritis with staph aureus 4. renal failure 5. thrombocytopenia 6. diabetes mellitus 7. hypertension 8. GI bleeding P 1. continue meropenem 1 more day 2. will follow up cultures Subjective ROS Limited/Unobtainable: Yes Allergies: Coded Allergies: VANCOMYCIN (Unverified Allergy, Unknown, 08/02/19) Objective Vital Signs Last 24 Hour Vital Signs Date Time Temp Pulse Resp B/P (MAP) Pulse Ox O2 Delivery O2 Flow Rate FiO2 08/12/19 10:00 52 16 167/44 (85) 100 08/12/19 09:14 54 26 100 40 08/12/19 09:00 54 20 162/68 (99) 100 08/12/19 08:05 51 23 100 40 08/12/19 08:00 97.7 47 18 163/72 (102) 100 08/12/19 08:00 Bi-pap Bi-pap Bi-pap 08/12/19 07:00 50 17 160/75 (103) 100 08/12/19 06:51 47 20 100 100 08/12/19 06:51 98 Bi-Pap 100 08/12/19 06:00 49 12 178/88 (118) 100 08/12/19 05:53 176/72 08/12/19 05:23 46 14 100 100 08/12/19 05:00 40 14 177/72 (107) 100 08/12/19 04:30 45 14 174/79 (110) 100 08/12/19 04:00 Bi-pap Bi-pap Bi-pap 08/12/19 04:00 97.5 46 17 177/80 (112) 100 08/12/19 04:00 100 08/12/19 03:49 46 08/12/19 03:30 53 19 155/89 (111) 100 08/12/19 03:30 53 22 100 100 08/12/19 03:00 62 18 168/81 (110) 100 08/12/19 02:00 48 15 176/74 (108) 100 08/12/19 01:30 50 14 186/64 (104) 100 08/12/19 01:09 56 18 100 100 08/12/19 01:00 54 13 165/75 (105) 100 08/12/19 00:30 59 18 163/77 (105) 99 08/12/19 00:00 97.4 71 14 141/75 (97) 92 08/12/19 00:00 Bi-pap Bi-pap Bi-pap 08/12/19 00:00 100 08/11/19 23:54 149/65 08/11/19 23:48 53 35 99 Bi-Pap 100 08/11/19 23:35 58 37 99 100 08/11/19 23:30 59 14 164/70 (101) 99 08/11/19 23:00 61 08/11/19 23:00 59 13 161/64 (96) 100 08/11/19 22:45 60 15 145/66 (92) 100 08/11/19 22:30 65 14 142/76 (98) 98 08/11/19 22:15 61 14 145/66 (92) 100 08/11/19 22:00 63 14 152/64 (93) 100 08/11/19 21:45 64 13 142/67 (92) 100 08/11/19 21:30 73 15 132/79 (96) 99 08/11/19 21:15 73 15 147/70 (95) 100 08/11/19 21:00 70 12 160/72 (101) 100 08/11/19 20:45 82 14 167/79 (108) 100 08/11/19 20:30 79 14 100 08/11/19 20:25 91 18 160/87 (111) 100 08/11/19 20:20 83 12 167/82 (110) 100 08/11/19 20:18 88 13 164/87 (112) 100 08/11/19 20:15 92 13 161/105 (123) 100 08/11/19 20:10 104 16 100 08/11/19 20:09 108 10 167/98 (121) 100 08/11/19 20:06 125 18 180/97 (124) 100 08/11/19 20:06 98 Non-Rebreather 15.0 100 08/11/19 20:05 131 19 100 08/11/19 20:00 130 19 49 08/11/19 20:00 Non-Rebreather Non-Rebreather Non-Rebreather 08/11/19 20:00 100 08/11/19 19:57 97.7 47 13 100/41 (60) 23 08/11/19 19:55 60 15 115/59 (77) 76 08/11/19 19:54 44 08/11/19 19:52 39 08/11/19 19:51 93 18 201/113 (142) 97 08/11/19 19:50 95 20 89 08/11/19 19:45 93 20 94 08/11/19 19:40 88 19 96 08/11/19 19:35 80 20 92 08/11/19 19:30 77 20 93 08/11/19 19:00 98.0 66 18 112/68 (83) 93 08/11/19 18:00 64 17 150/68 (95) 100 08/11/19 17:41 154/59 08/11/19 17:00 55 14 154/59 (90) 93 08/11/19 16:28 54 08/11/19 16:00 Venturi Mask 10.0 Venturi Mask 14.0 Venturi Mask 10.0 08/11/19 16:00 14.0 55 08/11/19 16:00 56 14 157/61 (93) 99 08/11/19 15:00 53 11 140/59 (86) 99 08/11/19 14:00 56 13 151/62 (91) 98 08/11/19 13:00 54 12 148/62 (90) 97 08/11/19 12:26 146/60 08/11/19 12:00 55 08/11/19 12:00 Venturi Mask 14.0 Venturi Mask 10.0 Venturi Mask 10.0 08/11/19 12:00 14.0 55 08/11/19 12:00 97.0 54 11 146/60 (88) 98 08/11/19 11:17 63 13 157/55 (89) 96 08/11/19 11:00 53 17 89/30 (49) 99 Height (Feet): 5 Height (Inches): 4.00 Weight (Pounds): 97 HEENT: other - on bipap Respiratory/Chest: lungs clear Cardiovascular: normal rate, regular rhythm, no gallop/murmur Abdomen: soft, non tender Extremities: no edema, other - right shoulder wound clean, right subclavian catheter Laboratory Tests Test 08/11/19 21:51 08/12/19 04:50 08/12/19 07:45 Arterial Blood pH 7.465 (7.350-7.450) 7.510 (7.350-7.450) Arterial Blood Partial Pressure CO2 49.1 mmHg (35.0-45.0) H 42.7 mmHg (35.0-45.0) Arterial Blood Partial Pressure O2 81.0 mmHg (75.0-100.0) 453.6 mmHg (75.0-100.0) H Arterial Blood HCO3 34.5 mmol/L (22.0-26.0) H 33.3 mmol/L (22.0-26.0) H Arterial Blood Oxygen Saturation 95.0 % (95-100) 99.0 % (95-100) Arterial Blood Base Excess 9.7 (-2-2) *H 9.4 (-2-2) *H Cuauhtemoc Test Positive Positive White Blood Count 6.7 K/UL (4.8-10.8) # Red Blood Count 3.04 M/UL (4.20-5.40) L Hemoglobin 9.2 G/DL (12.0-16.0) #L Hematocrit 26.4 % (37.0-47.0) #L Mean Corpuscular Volume 87 FL (80-99) Mean Corpuscular Hemoglobin 30.3 PG (27.0-31.0) Mean Corpuscular Hemoglobin Concent 34.9 G/DL (32.0-36.0) Red Cell Distribution Width 15.0 % (11.6-14.8) H Platelet Count 60 K/UL (150-450) L Mean Platelet Volume 7.9 FL (6.5-10.1) Neutrophils (%) (Auto) % (45.0-75.0) Lymphocytes (%) (Auto) % (20.0-45.0) Monocytes (%) (Auto) % (1.0-10.0) Eosinophils (%) (Auto) % (0.0-3.0) Basophils (%) (Auto) % (0.0-2.0) Differential Total Cells Counted 100 Neutrophils % (Manual) 62 % (45-75) Lymphocytes % (Manual) 32 % (20-45) Monocytes % (Manual) 4 % (1-10) Eosinophils % (Manual) 1 % (0-3) Basophils % (Manual) 0 % (0-2) Band Neutrophils 1 % (0-8) Platelet Estimate Decreased L Platelet Morphology Normal Anisocytosis 1+ Sodium Level 141 MMOL/L (136-145) Potassium Level 3.5 MMOL/L (3.5-5.1) Chloride Level 103 MMOL/L (98-107) Carbon Dioxide Level 26 MMOL/L (21-32) Anion Gap 12 mmol/L (5-15) Blood Urea Nitrogen 34 mg/dL (7-18) H Creatinine 3.2 MG/DL (0.55-1.30) H Estimat Glomerular Filtration Rate 13.9 mL/min (>60) Glucose Level 101 MG/DL (74-106) Calcium Level 8.5 MG/DL (8.5-10.1) Phosphorus Level 3.6 MG/DL (2.5-4.9) Total Bilirubin 0.6 MG/DL (0.2-1.0) Aspartate Amino Transf (AST/SGOT) 25 U/L (15-37) Alanine Aminotransferase (ALT/SGPT) 15 U/L (12-78) Alkaline Phosphatase 109 U/L (46-116) Troponin I 0.126 ng/mL (0.000-0.056) C-Reactive Protein, Quantitative 5.8 mg/dL (0.00-0.90) H Pro-B-Type Natriuretic Peptide 02467 pg/mL (0-125) H Total Protein 5.2 G/DL (6.4-8.2) L Albumin 1.2 G/DL (3.4-5.0) L Globulin 4.0 g/dL Albumin/Globulin Ratio 0.3 (1.0-2.7) L Current Medications Medications (Trade) Dose Ordered Sig/Javier Route PRN Reason Start Time Stop Time Status Last Admin Dose Admin Dextrose (Dextrose 50%) 50 ml Q30M PRN IV Hypoglycemia 08/11/19 10:30 09/04/19 17:44 08/11/19 23:55 Diphenhydramine HCl (Benadryl) 50 mg Q4H PRN IVP Itching 08/09/19 14:30 09/08/19 14:29 08/12/19 05:53 Epoetin Thomas (Epoetin Thomas(ESRD on dialysis)) 4,000 unit [id number] SUBQ 08/12/19 21:00 09/11/19 20:59 Hydralazine HCl (Apresoline) 25 mg Q4H PRN IV SBP>160 08/11/19 02:30 09/10/19 02:29 Levothyroxine Sodium (Synthroid) 50 mcg DAILY IV 08/10/19 09:00 09/08/19 11:59 08/12/19 08:34 Meropenem 500 mg/ Sodium Chloride 55 ml @ 110 mls/hr EVERY 12 HOURS IVPB 08/09/19 21:00 08/14/19 20:59 08/12/19 08:34 Metoclopramide HCl (Reglan) 5 mg Q8H PRN IVP Nausea & Vomiting 08/09/19 12:39 09/08/19 12:38 Nitroglycerin (Nitro-Bid) 1 inch Q6HR TOPIC 08/09/19 12:39 09/08/19 12:38 08/12/19 05:53 Pantoprazole (Protonix) 40 mg EVERY 12 HOURS IVP 08/09/19 21:00 09/08/19 10:44 08/12/19 08:34 Melissa Solares MD Aug 12, 2019 10:37
--- NOTE | 2019-08-12 10:45 | Consultation ---
DATE OF CONSULTATION: 08/11/2019 PULMONARY CONSULTATION CONSULTING PHYSICIAN: Malcolm Cruz M.D. REASON FOR CONSULTATION: Hemoptysis, abnormal x-ray. HISTORY OF PRESENT ILLNESS: This is an ill-appearing female, 79 years of age, who presented to the medical center some time back. The patient was hypotensive with chronic kidney disease and pneumonia and the patient now with noted hemoptysis, also end-stage renal disease. The patient's labs reviewed and discussed. The patient is significantly anemic and thrombocytopenic. The patient's coagulation factors are within normal limits. The patient is seen and evaluated and chart was reviewed in detail. The patient had presented back approximately 10 days ago to the hospital. The patient is a [place] female. The patient was noted to be initially hypotensive during dialysis and was brought in for further evaluation and intervention. The patient is currently without significant hemoptysis. The patient still requires suctioning at times. She is in the ICU. Events were reviewed. The patient is afebrile. Vital signs were reviewed. PAST MEDICAL HISTORY: Notable for cerebrovascular disease, dementia, end-stage renal disease, diabetes, history of protein-calorie malnutrition, MRSA, history of osteoarthritis and osteoporosis, degenerative disk disease, chronic kidney disease on dialysis, history of septic arthritis, and history of arthritis of the shoulder. ALLERGIES: Reviewed and reconciled. MEDICATIONS: Reviewed and reconciled. SOCIAL HISTORY: Nonsmoker and nondrinker. long-term patient. REVIEW OF SYSTEMS: Unobtainable due to the patient's present state. FAMILY HISTORY: Not available. PHYSICAL EXAMINATION: GENERAL: An ill-appearing female overall. VITAL SIGNS: Reviewed. Temperature 97.8, heart rate 63, respiratory rate 22, blood pressure 154/42, saturations 98%. The patient is on a Venturi mask at present. HEENT: Negative. NECK: Supple. The patient has no significant jugular venous distention. LUNGS: Coarse breath sounds. Moderate air entry. CHEST: Right chest wall PermCath noted. CARDIAC: Regular rate and rhythm without murmurs, rubs, or gallops. ABDOMEN: Soft, nontender, nondistended. EXTREMITIES: No cyanosis, clubbing, or edema. SKIN: Noted and reviewed. LABORATORY DATA: Reviewed. INR is 1.1. Chemistries noted. BUN 55, creatinine 4. Albumin is low. Electrolytes are otherwise fairly negative. ABGs 7.52/44/47. CBC, white cell count 4.4, hemoglobin 6.7, platelets of 148. Chest x-ray last obtained on 08/09/2019 shows improved aeration in the left lung. IMPRESSION: 1. Pneumonia. 2. Hemoptysis likely due to coagulopathy and also platelet dysfunction due to end-stage renal disease. 3. End-stage disease. No clear evidence of fluid overload. 4. Evidence of anemia. 5. Evidence of the thrombocytopenia. 6. Possible sepsis. 7. Severe protein-calorie malnutrition. 8. Diabetes. 9. Hypertension. 10. Noted bradycardia. RECOMMENDATIONS: 1. Supportive care. 2. Avoid anticoagulation at present and monitor platelet count. 3. Hematologic evaluation and followup. 4. Hemodialysis with ultrafiltration. 5. Monitor fluid status. 6. Monitor x-ray. 7. Maintain antibiotics. 8. ID evaluation noted. 9. PT/OT evaluation and monitoring. 10. Blood transfusion as needed as per Hematology. 11. We will follow closely and recommend monitoring in the ICU. 12. The patient is guarded at present and is at risk for further deterioration. Malcolm Cruz M.D. DR: WADE JOB#: [id number] CC: ISAI
[2019-08-12] MEDS ORDERED: Lidocaine 1% 10mg/ml/EPI 0.01mg/ml 30ml INJ SCH (11:15)
--- NOTE | 2019-08-12 12:18 | Brief Operative Note ---
Immediate Post Operative Note Operative Note Chief Complaint: infected permacath Pre-op Diagnosis: infected permacath Procedure: permacath removal Post-op Diagnosis: same Surgeon: Ivan Quinn Anesthesia: local Specimen: yes - tip sent for cx Complications: none Fluids: none Implant(s) used?: No Sulaiman Quinn MD Aug 12, 2019 12:18
--- NOTE | 2019-08-12 14:47 | Surgery Progress Note ---
Surgery Progress Note Subjective Symptoms: improved, tolerating diet, passing flatus Objective Last 24 Hour Vital Signs Date Time Temp Pulse Resp B/P (MAP) Pulse Ox O2 Delivery O2 Flow Rate FiO2 08/12/19 13:09 52 17 98 30 08/12/19 12:00 53 08/12/19 11:52 155/80 08/12/19 11:01 52 23 100 30 08/12/19 10:00 52 16 167/44 (85) 100 08/12/19 09:14 54 26 100 40 08/12/19 09:00 54 20 162/68 (99) 100 08/12/19 08:05 51 23 100 40 08/12/19 08:00 97.7 47 18 163/72 (102) 100 08/12/19 08:00 52 08/12/19 08:00 Bi-pap Bi-pap Bi-pap 08/12/19 07:00 50 17 160/75 (103) 100 08/12/19 06:51 47 20 100 100 08/12/19 06:51 98 Bi-Pap 100 08/12/19 06:00 49 12 178/88 (118) 100 08/12/19 05:53 176/72 08/12/19 05:23 46 14 100 100 08/12/19 05:00 40 14 177/72 (107) 100 08/12/19 04:30 45 14 174/79 (110) 100 08/12/19 04:00 Bi-pap Bi-pap Bi-pap 08/12/19 04:00 97.5 46 17 177/80 (112) 100 08/12/19 04:00 100 08/12/19 03:49 46 08/12/19 03:30 53 19 155/89 (111) 100 08/12/19 03:30 53 22 100 100 08/12/19 03:00 62 18 168/81 (110) 100 08/12/19 02:00 48 15 176/74 (108) 100 08/12/19 01:30 50 14 186/64 (104) 100 08/12/19 01:09 56 18 100 100 08/12/19 01:00 54 13 165/75 (105) 100 08/12/19 00:30 59 18 163/77 (105) 99 08/12/19 00:00 97.4 71 14 141/75 (97) 92 08/12/19 00:00 Bi-pap Bi-pap Bi-pap 08/12/19 00:00 100 08/11/19 23:54 149/65 08/11/19 23:48 53 35 99 Bi-Pap 100 08/11/19 23:35 58 37 99 100 08/11/19 23:30 59 14 164/70 (101) 99 08/11/19 23:00 61 08/11/19 23:00 59 13 161/64 (96) 100 08/11/19 22:45 60 15 145/66 (92) 100 08/11/19 22:30 65 14 142/76 (98) 98 08/11/19 22:15 61 14 145/66 (92) 100 08/11/19 22:00 63 14 152/64 (93) 100 08/11/19 21:45 64 13 142/67 (92) 100 08/11/19 21:30 73 15 132/79 (96) 99 08/11/19 21:15 73 15 147/70 (95) 100 08/11/19 21:00 70 12 160/72 (101) 100 08/11/19 20:45 82 14 167/79 (108) 100 08/11/19 20:30 79 14 100 08/11/19 20:25 91 18 160/87 (111) 100 08/11/19 20:20 83 12 167/82 (110) 100 08/11/19 20:18 88 13 164/87 (112) 100 08/11/19 20:15 92 13 161/105 (123) 100 08/11/19 20:10 104 16 100 08/11/19 20:09 108 10 167/98 (121) 100 08/11/19 20:06 125 18 180/97 (124) 100 08/11/19 20:06 98 Non-Rebreather 15.0 100 08/11/19 20:05 131 19 100 08/11/19 20:00 130 19 49 08/11/19 20:00 Non-Rebreather Non-Rebreather Non-Rebreather 08/11/19 20:00 100 08/11/19 19:57 97.7 47 13 100/41 (60) 23 08/11/19 19:55 60 15 115/59 (77) 76 08/11/19 19:54 44 2/27/20 19:52 39 08/11/19 19:51 93 18 201/113 (142) 97 08/11/19 19:50 95 20 89 08/11/19 19:45 93 20 94 08/11/19 19:40 88 19 96 08/11/19 19:35 80 20 92 08/11/19 19:30 77 20 93 08/11/19 19:00 98.0 66 18 112/68 (83) 93 08/11/19 18:00 64 17 150/68 (95) 100 08/11/19 17:41 154/59 08/11/19 17:00 55 14 154/59 (90) 93 08/11/19 16:28 54 08/11/19 16:00 Venturi Mask 10.0 Venturi Mask 14.0 Venturi Mask 10.0 08/11/19 16:00 14.0 55 08/11/19 16:00 56 14 157/61 (93) 99 08/11/19 15:00 53 11 140/59 (86) 99 I&O Intake and Output 08/11/19 08/12/19 19:00 07:00 Intake Total 55 ml 55 ml Output Total 110 ml 1075 ml Balance -55 ml -1020 ml IV Total 55 ml 55 ml Output Urine Total 110 ml 75 ml Hemodialysis UF 1000 ml Dressing: dry Wound: clean Cardiovascular: RSR Respiratory: clear Abdomen: soft, non-tender, present bowel sounds Extremities: no cyanosis Laboratory Tests Test 08/11/19 21:51 08/12/19 04:50 08/12/19 07:45 Arterial Blood pH 7.465 (7.350-7.450) 7.510 (7.350-7.450) Arterial Blood Partial Pressure CO2 49.1 mmHg (35.0-45.0) H 42.7 mmHg (35.0-45.0) Arterial Blood Partial Pressure O2 81.0 mmHg (75.0-100.0) 453.6 mmHg (75.0-100.0) H Arterial Blood HCO3 34.5 mmol/L (22.0-26.0) H 33.3 mmol/L (22.0-26.0) H Arterial Blood Oxygen Saturation 95.0 % (95-100) 99.0 % (95-100) Arterial Blood Base Excess 9.7 (-2-2) *H 9.4 (-2-2) *H Cuauhtemoc Test Positive Positive White Blood Count 6.7 K/UL (4.8-10.8) # Red Blood Count 3.04 M/UL (4.20-5.40) L Hemoglobin 9.2 G/DL (12.0-16.0) #L Hematocrit 26.4 % (37.0-47.0) #L Mean Corpuscular Volume 87 FL (80-99) Mean Corpuscular Hemoglobin 30.3 PG (27.0-31.0) Mean Corpuscular Hemoglobin Concent 34.9 G/DL (32.0-36.0) Red Cell Distribution Width 15.0 % (11.6-14.8) H Platelet Count 60 K/UL (150-450) L Mean Platelet Volume 7.9 FL (6.5-10.1) Neutrophils (%) (Auto) % (45.0-75.0) Lymphocytes (%) (Auto) % (20.0-45.0) Monocytes (%) (Auto) % (1.0-10.0) Eosinophils (%) (Auto) % (0.0-3.0) Basophils (%) (Auto) % (0.0-2.0) Differential Total Cells Counted 100 Neutrophils % (Manual) 62 % (45-75) Lymphocytes % (Manual) 32 % (20-45) Monocytes % (Manual) 4 % (1-10) Eosinophils % (Manual) 1 % (0-3) Basophils % (Manual) 0 % (0-2) Band Neutrophils 1 % (0-8) Platelet Estimate Decreased L Platelet Morphology Normal Anisocytosis 1+ Sodium Level 141 MMOL/L (136-145) Potassium Level 3.5 MMOL/L (3.5-5.1) Chloride Level 103 MMOL/L (98-107) Carbon Dioxide Level 26 MMOL/L (21-32) Anion Gap 12 mmol/L (5-15) Blood Urea Nitrogen 34 mg/dL (7-18) H Creatinine 3.2 MG/DL (0.55-1.30) H Estimat Glomerular Filtration Rate 13.9 mL/min (>60) Glucose Level 101 MG/DL (74-106) Calcium Level 8.5 MG/DL (8.5-10.1) Phosphorus Level 3.6 MG/DL (2.5-4.9) Total Bilirubin 0.6 MG/DL (0.2-1.0) Aspartate Amino Transf (AST/SGOT) 25 U/L (15-37) Alanine Aminotransferase (ALT/SGPT) 15 U/L (12-78) Alkaline Phosphatase 109 U/L (46-116) Troponin I 0.126 ng/mL (0.000-0.056) C-Reactive Protein, Quantitative 5.8 mg/dL (0.00-0.90) H Pro-B-Type Natriuretic Peptide 78244 pg/mL (0-125) H Total Protein 5.2 G/DL (6.4-8.2) L Albumin 1.2 G/DL (3.4-5.0) L Globulin 4.0 g/dL Albumin/Globulin Ratio 0.3 (1.0-2.7) L Plan Problems: (1) Malnutrition Assessment & Plan: DAILY ESTIMATED NEEDS: Needs based on ESRD+ HD, underweight, wound/ 39.5kg 35-40 kcals/kg 3058-2653 total kcals 1.25-1.8 g protein/kg 49-71 g total protein 20-22 mL/kg 790-869 total fluid mLs NUTRITION DIAGNOSIS: * Increased kcal and protein needs r/t underweight status, HD needs, wuond healing as evidenced by pt is underweight per guidelines, ESRD, on HD, admitted non-blanching erythema wounds @ BL heels and sacrum * Swallowing difficulty R/T dysphagia as evidenced by [employer] recommends temporary nonoral feeding at this time, s/p NGT insertion, on NGT feeding-> now s/p self removal, NPO. CURRENT TF:NPO PO DIET RECOMMENDATIONS: WHEN SAFE FOR ORAL DIET -> renal/ texture per [employer] ENTERAL NUTRITION RECOMMENDATIONS: W/ GI access: Nepro @ 35ml/hr x 22 hrs to provide 770ml, 1386kcal, 62g prot, 560ml free water * W/ GI access, resume TF on Nepro * Initiate Nepro @ 15ml/hr x 6 hrs, advance 10ml q 4-6 hrs as tolerated to goal rate. * Hold 1 hour before and after Synthroid med * HOB over 30 degrees/ water flush per MD. ADDITIONAL RECOMMENDATIONS: 1) Calibrated bed scale wt for accurate CBW -> daily wt monitoring Per HD record: dry wt on 07/30=39.5kg (87lbs) 2) Wound care: (W/ GI access) add Nephorivte x 1 + Balta BID 3) Monitor NPO status: without GI access at this time, s/p pulling out NGT 4) Monitor for hypoglycemia while NPO 5) Monitor for continuity of HD (2) Septic arthritis Assessment & Plan: Pt presented on admission with generalized scaly rash . pt noted to be restless and scratching at skin. Bleeding from oral mucosa noted. Joint deformity noted to R shoulder. Surgical incision approximated with 11 sutures. Erythema but no exudate,or elevation in skin temp at site of incision. Historical incision R hip that is tunneled.Small amt seropurulent exudate noted. Periwound is erythematous,but no elevation in skin temp noted. No odor noted. Non-blanching erythema noted to sacrum. Perianal area is erythematous and excoriated. L heel is boggy with non-blanching erythema. R heel is soft with non-blanching erythema. No evidence of skin breakdown to all other bony prominences. Tx.plan: Cover R shoulder with Drsg and change daily and prn. Cleanse R hip wound with Saline. Apply Therahoney.Apply Cavilon Skin Barrier periwound. Cover with Optifoam drsg. Change every 3 days and prn. Apply Moisture Barrier Paste to perianal area and buttocks. Cover Sacrum with Optifoam drsg. Change every 3 days and prn. Apply Cavilon Skin Barrier to both heels. Cover each heel with Optifoam drsg. Change every 7 days and prn. APM/ELVIA Mattress overlay. Reposition at least every 2hours or as tolerated. Off-load heels with pillow. (3) Wound, open, hip or thigh with complication Assessment & Plan: slow healing will need nutritional optimization difficult ng tube peg when stable sutures removed from right shoulder comfortable (4) Abscess of right hip (5) possible septic arthritis Camilo James Aug 12, 2019 14:47
--- NOTE | 2019-08-12 17:54 | Diagnostic Imaging Report ---
Indication: Infected right chest permacath, removal requested by attending physician Technique: Informed consent obtained prior to commencement of the procedure. Sterile prepping and draping right chest. Local anesthesia with 1% lidocaine. Using blunt dissection, the cuff of the previous tunneled dialysis catheter was freed from the surrounding tissues, and the catheter was removed. The tip was cut off and sent for culture. Pressure was held until hemostasis was achieved. The patient tolerated the procedure well, without immediate complication. Comparison: 08/09/2019 Findings: Completion chest radiograph demonstrates complete removal of the tunneled dialysis catheter. There is stable left and increased right pleural fluid Impression: Successful removal of right chest tunneled dialysis catheter, as described
[2019-08-12] MEDS: Epoetin Alfa-EPBX(ESRD on dialysis)4000 units/ml vial SUBQ SCH (20:35)
--- NOTE | 2019-08-12 21:35 | General Progress Note ---
Assessment/Plan Status: not improved, unchanged, deteriorating Assessment/Plan: Assessment - Resp failure - thrombocytopenia - Renal failure - aspiration risk - anemia - bradycardai Recommendations - not safe for NGT placement today - Consider heme opinion re low platelets - IVF - can place PEG once stablized or if intubated Subjective Allergies: Coded Allergies: VANCOMYCIN (Unverified Allergy, Unknown, 08/02/19) Subjective above noted seen in ICU d/w RN hypoxia and apnea, on BIPAP also bradycardic Objective Last 24 Hour Vital Signs Date Time Temp Pulse Resp B/P (MAP) Pulse Ox O2 Delivery O2 Flow Rate FiO2 08/12/19 21:03 58 17 100 30 08/12/19 20:00 97.7 53 22 155/75 (101) 100 08/12/19 20:00 Bi-pap Bi-pap Bi-pap 08/12/19 19:30 51 19 162/75 (104) 100 08/12/19 19:18 50 18 155/72 (99) 100 08/12/19 19:03 100 Bi-Pap 100 08/12/19 19:03 61 32 100 30 08/12/19 19:00 51 21 100 08/12/19 18:00 54 25 157/81 (106) 100 08/12/19 17:40 158/63 08/12/19 17:00 49 17 144/62 (89) 100 08/12/19 16:45 51 22 100 30 08/12/19 16:00 30 08/12/19 16:00 Bi-pap Bi-pap Bi-pap 08/12/19 16:00 50 08/12/19 16:00 97.6 49 26 150/74 (99) 100 08/12/19 15:02 46 14 100 30 08/12/19 15:00 50 32 146/77 (100) 100 08/12/19 14:00 51 16 155/78 (103) 100 08/12/19 13:09 52 17 98 30 08/12/19 13:00 53 12 159/67 (97) 100 08/12/19 12:00 53 08/12/19 12:00 30 08/12/19 12:00 97.1 49 20 140/60 (86) 99 08/12/19 12:00 Bi-pap Bi-pap Bi-pap 2/28/20 11:52 155/80 08/12/19 11:01 52 23 100 30 08/12/19 11:00 52 19 154/71 (98) 100 08/12/19 10:00 52 16 167/44 (85) 100 08/12/19 09:14 54 26 100 40 08/12/19 09:00 54 20 162/68 (99) 100 08/12/19 08:30 40 08/12/19 08:05 51 23 100 40 08/12/19 08:00 97.7 47 18 163/72 (102) 100 08/12/19 08:00 52 08/12/19 08:00 100 08/12/19 08:00 Bi-pap Bi-pap Bi-pap 08/12/19 07:00 50 17 160/75 (103) 100 08/12/19 06:51 47 20 100 100 08/12/19 06:51 98 Bi-Pap 100 08/12/19 06:00 49 12 178/88 (118) 100 08/12/19 05:53 176/72 08/12/19 05:23 46 14 100 100 08/12/19 05:00 40 14 177/72 (107) 100 08/12/19 04:30 45 14 174/79 (110) 100 08/12/19 04:00 Bi-pap Bi-pap Bi-pap 08/12/19 04:00 97.5 46 17 177/80 (112) 100 08/12/19 04:00 100 08/12/19 03:49 46 08/12/19 03:30 53 19 155/89 (111) 100 08/12/19 03:30 53 22 100 100 08/12/19 03:00 62 18 168/81 (110) 100 08/12/19 02:00 48 15 176/74 (108) 100 08/12/19 01:30 50 14 186/64 (104) 100 08/12/19 01:09 56 18 100 100 08/12/19 01:00 54 13 165/75 (105) 100 08/12/19 00:30 59 18 163/77 (105) 99 08/12/19 00:00 97.4 71 14 141/75 (97) 92 08/12/19 00:00 Bi-pap Bi-pap Bi-pap 08/12/19 00:00 100 08/11/19 23:54 149/65 08/11/19 23:48 53 35 99 Bi-Pap 100 08/11/19 23:35 58 37 99 100 08/11/19 23:30 59 14 164/70 (101) 99 08/11/19 23:00 61 08/11/19 23:00 59 13 161/64 (96) 100 08/11/19 22:45 60 15 145/66 (92) 100 08/11/19 22:30 65 14 142/76 (98) 98 08/11/19 22:15 61 14 145/66 (92) 100 08/11/19 22:00 63 14 152/64 (93) 100 08/11/19 21:45 64 13 142/67 (92) 100 08/11/19 21:30 73 15 132/79 (96) 99 Intake and Output 08/11/19 08/12/19 19:00 07:00 Intake Total 55 ml 55 ml Output Total 110 ml 1075 ml Balance -55 ml -1020 ml IV Total 55 ml 55 ml Output Urine Total 110 ml 75 ml Hemodialysis UF 1000 ml Laboratory Tests 08/11/19 21:51: Arterial Blood pH 7.465H, Arterial Blood Partial Pressure CO2 49.1H, Arterial Blood Partial Pressure O2 81.0, Arterial Blood HCO3 34.5H, Arterial Blood Oxygen Saturation 95.0, Arterial Blood Base Excess 9.7*H, Cuauhtemoc Test Positive 08/12/19 04:50: White Blood Count 6.7#, Red Blood Count 3.04L, Hemoglobin 9.2#L, Hematocrit 26.4 #L, Mean Corpuscular Volume 87, Mean Corpuscular Hemoglobin 30.3, Mean Corpuscular Hemoglobin Concent 34.9, Red Cell Distribution Width 15.0H, Platelet Count 60L, Mean Platelet Volume 7.9, Neutrophils (%) (Auto) , Lymphocytes (%) (Auto) , Monocytes (%) (Auto) , Eosinophils (%) (Auto) , Basophils (%) (Auto) , Differential Total Cells Counted 100, Neutrophils % ( Manual) 62, Lymphocytes % (Manual) 32, Monocytes % (Manual) 4, Eosinophils % ( Manual) 1, Basophils % (Manual) 0, Band Neutrophils 1, Platelet Estimate DecreasedL, Platelet Morphology Normal, Anisocytosis 1+, Sodium Level 141, Potassium Level 3.5, Chloride Level 103, Carbon Dioxide Level 26, Anion Gap 12, Blood Urea Nitrogen 34H, Creatinine 3.2H, Estimat Glomerular Filtration Rate 13.9, Glucose Level 101, Calcium Level 8.5, Phosphorus Level 3.6, Total Bilirubin 0.6, Aspartate Amino Transf (AST/SGOT) 25, Alanine Aminotransferase ( ALT/SGPT) 15, Alkaline Phosphatase 109, Troponin I 0.126H, C-Reactive Protein, Quantitative 5.8H, Pro-B-Type Natriuretic Peptide 82710J, Total Protein 5.2L, Albumin 1.2L, Globulin 4.0, Albumin/Globulin Ratio 0.3L 08/12/19 07:45: Arterial Blood pH 7.510H, Arterial Blood Partial Pressure CO2 42.7, Arterial Blood Partial Pressure O2 453.6H, Arterial Blood HCO3 33.3H, Arterial Blood Oxygen Saturation 99.0, Arterial Blood Base Excess 9.4*H, Cuauhtemoc Test Positive Height (Feet): 5 Height (Inches): 4.00 Weight (Pounds): 97 Objective Debilitated WW NCAT supple scattered yenni ABDUL abd soft ND NT Cristy Elizondo MD Aug 12, 2019 21:35
--- NOTE | 2019-08-12 23:30 | Progress Note ---
DATE: 08/12/2019 CARDIOLOGY PROGRESS NOTE SUBJECTIVE: The patient's condition remains critical. Prognosis guarded. She remains in the intensive care unit on BiPAP support. Bleeding from oral mucosa persisting. Bradycardia noted. Atropine was required last night. PHYSICAL EXAMINATION: VITAL SIGNS: Blood pressure 178/88, pulse 49, and respirations 12. LUNGS: Bilateral breath sounds. Rhonchi. CARDIAC: Regular rhythm, slow rate. Normal S1, S2. ABDOMEN: Soft. EXTREMITIES: Trace edema. LABORATORY DATA: White count 6.7, hemoglobin 9.2, following transfusion yesterday. Sodium 141, potassium 3.5, bicarb 26, BUN 34, creatinine 3.2. Pro-natriuretic peptide 30,000. Troponin 0.126. ABG, 7.51, 42, 300. IMPRESSION: 1. Respiratory failure. 2. Sepsis. 3. Thrombocytopenia. 4. Sinus bradycardia in the setting of sinus node disease. 5. End-stage renal disease. 6. Hypothyroid, on replacement. 7. aCUTE MYOCARDIAL ISCHEMIA. PLAN: 1. Recheck TSH. 2. May need IV thyroid replacement. 3. Continue cardiac monitoring. Atropine at bedside. 4. Removal of indwelling dialysis catheter access due to acute infection. 5. IV antimicrobials. 6. BiPAP support. 7. Transfusions as needed for bleeding and anemia of significant severity. 8. Remains critical and guarded. Abel Stubbs M.D. DR: [place] JOB#: [id number] CC: ISAI
[2019-08-13] VITALS (28 sets, daily range): BP systolic 126–191; BP diastolic 58–123
[2019-08-13] MEDS: DiphenhydrAMINE 50mg/ml Inj IVP PRN (02:39)
[2019-08-13 05:48] LABS: HEMATOCRIT 30.3 % (37.0-47.0); HEMOGLOBIN 10.4 G/DL (12.0-16.0); MEAN CORPUSCULAR VOLUME 87 FL (80-99); PLATELET COUNT 83 K/UL (150-450); RED BLOOD COUNT 3.47 M/UL (4.20-5.40); WHITE BLOOD COUNT 6.4 K/UL (4.8-10.8)
[2019-08-13] MEDS: Nitroglycerin 2% oint pkt TOPIC SCH ×4 (06:00→17:48)
[2019-08-13 06:39] LABS: ALANINE AMINOTRANSFERASE < 6 U/L (12-78); ALBUMIN 1.4 G/DL (3.4-5.0); ALBUMIN/GLOBULIN RATIO 0.3 (1.0-2.7); ALKALINE PHOSPHATASE 121 U/L (46-116); ANION GAP 8 mmol/L (5-15); ASPARTATE AMINO TRANSFERASE 26 U/L (15-37); BILIRUBIN,TOTAL 0.5 MG/DL (0.2-1.0); BLOOD UREA NITROGEN 36 mg/dL (7-18); CALCIUM 8.7 MG/DL (8.5-10.1); CARBON DIOXIDE 31 MMOL/L (21-32); CHLORIDE 103 MMOL/L (98-107); CREATININE 3.7 MG/DL (0.55-1.30); PHOSPHORUS 4.1 MG/DL (2.5-4.9); POTASSIUM 3.3 MMOL/L (3.5-5.1); SODIUM 142 MMOL/L (136-145)
--- NOTE | 2019-08-13 08:26 | General Progress Note ---
Assessment/Plan Problem List: (1) Failure to thrive (0-17) ICD Codes: R62.51 - Failure to thrive (0-17) SNOMED: 738008100 (2) Hypertensive kidney disease ICD Codes: I12.9 - Hypertensive chronic kidney disease with stage 1 through stage 4 chronic kidney disease, or unspecified chronic kidney disease SNOMED: 52549778 (3) Pneumonia ICD Codes: J18.9 - Pneumonia, unspecified organism SNOMED: 469945331 Qualifiers: Qualified Codes: J18.9 - Pneumonia, unspecified organism (4) ESRD (end stage renal disease) ICD Codes: N18.6 - End stage renal disease SNOMED: 90715577 (5) Septic arthritis ICD Codes: M00.9 - Pyogenic arthritis, unspecified SNOMED: 927123127 (6) Thrombocytopenia ICD Codes: D69.6 - Thrombocytopenia, unspecified SNOMED: 285652754 (7) Hypotension ICD Codes: I95.9 - Hypotension, unspecified SNOMED: 58986792 Qualifiers: Qualified Codes: I95.3 - Hypotension of hemodialysis (8) Malnutrition ICD Codes: E46 - Unspecified protein-calorie malnutrition SNOMED: 84023368 Status: not improved, unchanged, deteriorating Assessment/Plan: increased synthroid cont icu care o2/bipap prn resp rx/suctioning transfuse plts and rbcs as needed iv PPI iv abx dc perm cath when plts better. bailey for urinary retention iv bp rx eventually needs GT when resp status stable- will d/w pulm and ID critical and guarded gt when stable Subjective ROS Limited/Unobtainable: No Constitutional: Reports: malaise, weakness HEENT: Reports: no symptoms Cardiovascular: Reports: edema Respiratory: Reports: shortness of breath, sputum Gastrointestinal/Abdominal: Reports: difficulty swallowing Genitourinary: Reports: no symptoms Neurologic/Psychiatric: Reports: pre-existing deficit Endocrine: Reports: no symptoms Hematologic/Lymphatic: Reports: anemia Allergies: Coded Allergies: VANCOMYCIN (Unverified Allergy, Unknown, 08/02/19) All Systems: reviewed and negative except above Subjective remains bradycardic. 50s. on bipap. no hemoptysis. no fevers. d/w night rn. Objective Last 24 Hour Vital Signs Date Time Temp Pulse Resp B/P (MAP) Pulse Ox O2 Delivery O2 Flow Rate FiO2 08/13/19 07:11 100 Bi-Pap 30 08/13/19 07:07 51 28 92 30 08/13/19 07:00 49 19 161/80 (107) 99 08/13/19 06:43 161/68 08/13/19 06:00 61 23 154/68 (96) 100 08/13/19 05:00 49 22 172/74 (106) 99 08/13/19 05:00 48 25 99 30 08/13/19 04:30 50 21 148/68 (94) 99 08/13/19 04:06 49 23 155/107 (123) 99 08/13/19 04:00 30 08/13/19 04:00 97.5 50 18 174/123 (140) 98 08/13/19 04:00 Bi-pap Bi-pap Bi-pap 08/13/19 03:43 48 08/13/19 03:07 53 27 100 30 08/13/19 03:00 52 28 146/81 (102) 94 08/13/19 02:00 50 19 151/66 (94) 100 08/13/19 01:00 50 23 161/69 (99) 97 08/13/19 00:36 53 22 100 30 08/13/19 00:00 Bi-pap Bi-pap Bi-pap 08/13/19 00:00 30 08/13/19 00:00 97.6 52 24 157/69 (98) 100 08/12/19 23:54 156/64 08/12/19 23:41 54 08/12/19 23:09 58 25 100 30 08/12/19 23:00 50 18 156/65 (95) 95 08/12/19 22:00 49 30 157/64 (95) 99 08/12/19 21:03 58 17 100 30 08/12/19 21:00 56 23 158/81 (106) 97 08/12/19 20:35 51 08/12/19 20:00 97.7 53 22 155/75 (101) 100 08/12/19 20:00 30 08/12/19 20:00 Bi-pap Bi-pap Bi-pap 08/12/19 19:30 51 19 162/75 (104) 100 08/12/19 19:18 50 18 155/72 (99) 100 08/12/19 19:03 100 Bi-Pap 100 08/12/19 19:03 61 32 100 30 08/12/19 19:00 51 21 100 08/12/19 18:00 54 25 157/81 (106) 100 08/12/19 17:40 158/63 08/12/19 17:00 49 17 144/62 (89) 100 08/12/19 16:45 51 22 100 30 08/12/19 16:00 30 08/12/19 16:00 Bi-pap Bi-pap Bi-pap 08/12/19 16:00 50 08/12/19 16:00 97.6 49 26 150/74 (99) 100 08/12/19 15:02 46 14 100 30 08/12/19 15:00 50 32 146/77 (100) 100 08/12/19 14:00 51 16 155/78 (103) 100 08/12/19 13:09 52 17 98 30 08/12/19 13:00 53 12 159/67 (97) 100 08/12/19 12:00 53 08/12/19 12:00 30 08/12/19 12:00 97.1 49 20 140/60 (86) 99 08/12/19 12:00 Bi-pap Bi-pap Bi-pap 08/12/19 11:52 155/80 08/12/19 11:01 52 23 100 30 08/12/19 11:00 52 19 154/71 (98) 100 08/12/19 10:00 52 16 167/44 (85) 100 08/12/19 09:14 54 26 100 40 08/12/19 09:00 54 20 162/68 (99) 100 08/12/19 08:30 40 Intake and Output 08/12/19 08/13/19 19:00 07:00 Intake Total 55 ml 55 ml Output Total 30 ml 75 ml Balance 25 ml -20 ml IV Total 55 ml 55 ml Output Urine Total 30 ml 75 ml Laboratory Tests 08/13/19 05:12: White Blood Count 6.4, Red Blood Count 3.47L, Hemoglobin 10.4L, Hematocrit 30.3L , Mean Corpuscular Volume 87, Mean Corpuscular Hemoglobin 29.9, Mean Corpuscular Hemoglobin Concent 34.3, Red Cell Distribution Width 15.0H, Platelet Count 83L, Mean Platelet Volume 8.5, Neutrophils (%) (Auto) , Lymphocytes (%) (Auto) , Monocytes (%) (Auto) , Eosinophils (%) (Auto) , Basophils (%) (Auto) , Neutrophils % (Manual) [Pending], Lymphocytes % (Manual) [Pending], Platelet Estimate [Pending], Platelet Morphology [Pending], Sodium Level 142, Potassium Level 3.3L, Chloride Level 103, Carbon Dioxide Level 31, Anion Gap 8, Blood Urea Nitrogen 36H, Creatinine 3.7H, Estimat Glomerular Filtration Rate 11.8, Glucose Level 101, Calcium Level 8.7, Phosphorus Level 4.1 , Magnesium Level 2.1, Total Bilirubin 0.5, Aspartate Amino Transf (AST/SGOT) 26 , Alanine Aminotransferase (ALT/SGPT) < 6L, Alkaline Phosphatase 121H, Troponin I 0.557H, C-Reactive Protein, Quantitative 5.8H, Pro-B-Type Natriuretic Peptide > 92204M, Total Protein 5.5L, Albumin 1.4L, Globulin 4.1, Albumin/Globulin Ratio 0.3L, Thyroid Stimulating Hormone (TSH) 12.263H, Free Thyroxine 1.22, Free Triiodothyronine 0.8L Height (Feet): 5 Height (Inches): 4.00 Weight (Pounds): 89 Objective General Appearance: WD/WN, awake/moaning. on bipap Neck: supple Cardiovascular: normal rate Respiratory/Chest: rhonchi - bilaterally Abdomen: normal bowel sounds, non tender, soft, no organomegaly Edema: no edema noted Arm (L), no edema noted Arm (R), no edema noted Leg (L), no edema noted Leg (R), no edema noted Pedal (L), no edema noted Pedal (R), no edema noted Generalized Neurologic: disoriented, aphasia Nate Beltran MD Aug 13, 2019 08:26
[2019-08-13] MEDS ORDERED: Atropine Inj 1mg/10ml Syr IVP PRN (08:30)
--- NOTE | 2019-08-13 08:31 | Hematology/Onc Progress Note ---
Assessment/Plan Assessment/Plan # Thrombocytopenia - potential causes multifactorial, evaluate liver and viral etiologies to begin, in this case due to sepsis with septic shock also with cirrhosis and liver disease --> Hep panel and HIV ordered -> neg --> US abd to evaluate for cirrhosis and hsm ordered --> reviewed --> Peripheral smear ordered to evaluate for blasts /schistocytes --> abx and other meds have been reviewed --> ok for ppx if plt >50k w/ either heparin or lovenox --> Transfuse if Plt < 20k and fever, or if Plt < 10k without fever --> okay for permacath change once plt better # Anemia of chronic disease due to underlying chronic medical issues, multifactorial v Gi bleed --> Anemia workup has been ordered, rule out gi bleed --> No evidence of hemolysis is noted, peripheral smear has been reviewed. --> Hgb goal >7. Transfuse prn. --> Epogen has been started --> HOLD OFF IRON ferritin is >1000 --> Medications have been reviewed --> low threshold for gi evaluation in case has occult + --> hgb 9-->6.7-->9.2 --> blood tx: 08/11 # Early sepsis with shock. --> abx as per id, recs noted # Healthcare-associated pneumonia. --> recs reviewed # Severe protein-calorie malnutrition. --> nutritional support # End-stage renal disease --> had as renal hd # History of hypertension. --> per cards, now with Bradycardia. # HypoThyroid # Ngt feedings The timing of this note does not necessarily reflect the time of the patient was seen. Greatly appreciate consultation. Subjective Allergies: Coded Allergies: VANCOMYCIN (Unverified Allergy, Unknown, 08/02/19) Subjective 08/11: no bleeding or chills, labs reviewed, no major bleeding, plt less than 50k 08/12: icu, s/p blood, hgb improved to 9.2, Objective Objective Current Medications Medications (Trade) Dose Ordered Sig/Javier Route PRN Reason Start Time Stop Time Status Last Admin Dose Admin Atropine Sulfate (Atropine) 1 mg EVERY 4 HOURS PRN IVP Per rx protocol 08/13/19 08:30 09/12/19 08:29 UNV Dextrose (Dextrose 50%) 50 ml Q30M PRN IV Hypoglycemia 08/11/19 10:30 09/04/19 17:44 08/13/19 05:49 Diphenhydramine HCl (Benadryl) 50 mg Q4H PRN IVP Itching 08/09/19 14:30 09/08/19 14:29 08/13/19 02:39 Epoetin Thomas (Epoetin Thomas(ESRD on dialysis)) 4,000 unit THU- SUBQ 08/12/19 21:00 09/11/19 20:59 08/12/19 20:35 Hydralazine HCl (Apresoline) 25 mg Q4H PRN IV SBP>160 08/11/19 02:30 09/10/19 02:29 Levothyroxine Sodium (Synthroid) 75 mcg DAILY IV 08/13/19 09:00 09/12/19 08:59 Meropenem 500 mg/ Sodium Chloride 55 ml @ 110 mls/hr EVERY 12 HOURS IVPB 08/09/19 21:00 08/14/19 20:59 08/12/19 20:35 Metoclopramide HCl (Reglan) 5 mg Q8H PRN IVP Nausea & Vomiting 08/09/19 12:39 09/08/19 12:38 Nitroglycerin (Nitro-Bid) 1 inch Q6HR TOPIC 08/09/19 12:39 09/08/19 12:38 08/13/19 06:43 Pantoprazole (Protonix) 40 mg EVERY 12 HOURS IVP 08/09/19 21:00 09/08/19 10:44 08/12/19 20:35 Last 24 Hour Vital Signs Date Time Temp Pulse Resp B/P (MAP) Pulse Ox O2 Delivery O2 Flow Rate FiO2 08/13/19 07:11 100 Bi-Pap 30 08/13/19 07:07 51 28 92 30 08/13/19 07:00 49 19 161/80 (107) 99 08/13/19 06:43 161/68 08/13/19 06:00 61 23 154/68 (96) 100 08/13/19 05:00 49 22 172/74 (106) 99 08/13/19 05:00 48 25 99 30 08/13/19 04:30 50 21 148/68 (94) 99 08/13/19 04:06 49 23 155/107 (123) 99 08/13/19 04:00 30 08/13/19 04:00 97.5 50 18 174/123 (140) 98 08/13/19 04:00 Bi-pap Bi-pap Bi-pap 08/13/19 03:43 48 08/13/19 03:07 53 27 100 30 08/13/19 03:00 52 28 146/81 (102) 94 08/13/19 02:00 50 19 151/66 (94) 100 08/13/19 01:00 50 23 161/69 (99) 97 08/13/19 00:36 53 22 100 30 08/13/19 00:00 Bi-pap Bi-pap Bi-pap 08/13/19 00:00 30 08/13/19 00:00 97.6 52 24 157/69 (98) 100 08/12/19 23:54 156/64 08/12/19 23:41 54 08/12/19 23:09 58 25 100 30 08/12/19 23:00 50 18 156/65 (95) 95 08/12/19 22:00 49 30 157/64 (95) 99 08/12/19 21:03 58 17 100 30 08/12/19 21:00 56 23 158/81 (106) 97 08/12/19 20:35 51 08/12/19 20:00 97.7 53 22 155/75 (101) 100 08/12/19 20:00 30 08/12/19 20:00 Bi-pap Bi-pap Bi-pap 08/12/19 19:30 51 19 162/75 (104) 100 08/12/19 19:18 50 18 155/72 (99) 100 08/12/19 19:03 100 Bi-Pap 100 08/12/19 19:03 61 32 100 30 08/12/19 19:00 51 21 100 08/12/19 18:00 54 25 157/81 (106) 100 08/12/19 17:40 158/63 08/12/19 17:00 49 17 144/62 (89) 100 08/12/19 16:45 51 22 100 30 08/12/19 16:00 30 08/12/19 16:00 Bi-pap Bi-pap Bi-pap 08/12/19 16:00 50 08/12/19 16:00 97.6 49 26 150/74 (99) 100 08/12/19 15:02 46 14 100 30 08/12/19 15:00 50 32 146/77 (100) 100 08/12/19 14:00 51 16 155/78 (103) 100 08/12/19 13:09 52 17 98 30 08/12/19 13:00 53 12 159/67 (97) 100 08/12/19 12:00 53 08/12/19 12:00 30 08/12/19 12:00 97.1 49 20 140/60 (86) 99 08/12/19 12:00 Bi-pap Bi-pap Bi-pap 08/12/19 11:52 155/80 08/12/19 11:01 52 23 100 30 08/12/19 11:00 52 19 154/71 (98) 100 08/12/19 10:00 52 16 167/44 (85) 100 08/12/19 09:14 54 26 100 40 08/12/19 09:00 54 20 162/68 (99) 100 08/12/19 08:30 40 08/12/19 08:05 51 23 100 40 08/12/19 08:00 97.7 47 18 163/72 (102) 100 08/12/19 08:00 52 08/12/19 08:00 100 08/12/19 08:00 Bi-pap Bi-pap Bi-pap 08/12/19 07:00 50 17 160/75 (103) 100 08/12/19 06:51 47 20 100 100 08/12/19 06:51 98 Bi-Pap 100 08/12/19 06:00 49 12 178/88 (118) 100 08/12/19 05:53 176/72 08/12/19 05:23 46 14 100 100 08/12/19 05:00 40 14 177/72 (107) 100 08/12/19 04:30 45 14 174/79 (110) 100 08/12/19 04:00 Bi-pap Bi-pap Bi-pap 08/12/19 04:00 97.5 46 17 177/80 (112) 100 08/12/19 04:00 100 08/12/19 03:49 46 08/12/19 03:30 53 19 155/89 (111) 100 08/12/19 03:30 53 22 100 100 08/12/19 03:00 62 18 168/81 (110) 100 08/12/19 02:00 48 15 176/74 (108) 100 08/12/19 01:30 50 14 186/64 (104) 100 08/12/19 01:09 56 18 100 100 08/12/19 01:00 54 13 165/75 (105) 100 08/12/19 00:30 59 18 163/77 (105) 99 08/12/19 00:00 97.4 71 14 141/75 (97) 92 08/12/19 00:00 Bi-pap Bi-pap Bi-pap 08/12/19 00:00 100 08/11/19 23:54 149/65 08/11/19 23:48 53 35 99 Bi-Pap 100 08/11/19 23:35 58 37 99 100 08/11/19 23:30 59 14 164/70 (101) 99 08/11/19 23:00 61 08/11/19 23:00 59 13 161/64 (96) 100 08/11/19 22:45 60 15 145/66 (92) 100 08/11/19 22:30 65 14 142/76 (98) 98 08/11/19 22:15 61 14 145/66 (92) 100 08/11/19 22:00 63 14 152/64 (93) 100 08/11/19 21:45 64 13 142/67 (92) 100 08/11/19 21:30 73 15 132/79 (96) 99 08/11/19 21:15 73 15 147/70 (95) 100 08/11/19 21:00 70 12 160/72 (101) 100 08/11/19 20:45 82 14 167/79 (108) 100 08/11/19 20:30 79 14 100 08/11/19 20:25 91 18 160/87 (111) 100 08/11/19 20:20 83 12 167/82 (110) 100 08/11/19 20:18 88 13 164/87 (112) 100 08/11/19 20:15 92 13 161/105 (123) 100 08/11/19 20:10 104 16 100 08/11/19 20:09 108 10 167/98 (121) 100 08/11/19 20:06 125 18 180/97 (124) 100 08/11/19 20:06 98 Non-Rebreather 15.0 100 08/11/19 20:05 131 19 100 08/11/19 20:00 130 19 49 08/11/19 20:00 Non-Rebreather Non-Rebreather Non-Rebreather 08/11/19 20:00 100 08/11/19 19:57 97.7 47 13 100/41 (60) 23 08/11/19 19:55 60 15 115/59 (77) 76 08/11/19 19:54 44 08/11/19 19:52 39 08/11/19 19:51 93 18 201/113 (142) 97 08/11/19 19:50 95 20 89 08/11/19 19:45 93 20 94 08/11/19 19:40 88 19 96 08/11/19 19:35 80 20 92 08/11/19 19:30 77 20 93 08/11/19 19:00 98.0 66 18 112/68 (83) 93 08/11/19 18:00 64 17 150/68 (95) 100 08/11/19 17:41 154/59 08/11/19 17:00 55 14 154/59 (90) 93 08/11/19 16:28 54 08/11/19 16:00 Venturi Mask 10.0 Venturi Mask 14.0 Venturi Mask 10.0 08/11/19 16:00 14.0 55 08/11/19 16:00 56 14 157/61 (93) 99 08/11/19 15:00 53 11 140/59 (86) 99 08/11/19 14:00 56 13 151/62 (91) 98 08/11/19 13:00 54 12 148/62 (90) 97 08/11/19 12:26 146/60 08/11/19 12:00 55 08/11/19 12:00 Venturi Mask 14.0 Venturi Mask 10.0 Venturi Mask 10.0 08/11/19 12:00 14.0 55 08/11/19 12:00 97.0 54 11 146/60 (88) 98 08/11/19 11:17 63 13 157/55 (89) 96 08/11/19 11:00 53 17 89/30 (49) 99 08/11/19 10:00 64 19 135/78 (97) 98 08/11/19 09:05 57 11 149/92 (111) 98 Intake and Output 08/12/19 08/13/19 19:00 07:00 Intake Total 55 ml 55 ml Output Total 30 ml 75 ml Balance 25 ml -20 ml IV Total 55 ml 55 ml Output Urine Total 30 ml 75 ml Labs Test 08/11/19 05:15 08/11/19 21:51 08/12/19 04:50 08/12/19 07:45 White Blood Count 4.4 K/UL (4.8-10.8) 6.7 K/UL (4.8-10.8) Red Blood Count 2.23 M/UL (4.20-5.40) 3.04 M/UL (4.20-5.40) Hemoglobin 6.7 G/DL (12.0-16.0) 9.2 G/DL (12.0-16.0) Hematocrit 19.7 % (37.0-47.0) 26.4 % (37.0-47.0) Mean Corpuscular Volume 88 FL (80-99) 87 FL (80-99) Mean Corpuscular Hemoglobin 29.8 PG (27.0-31.0) 30.3 PG (27.0-31.0) Mean Corpuscular Hemoglobin Concent 33.8 G/DL (32.0-36.0) 34.9 G/DL (32.0-36.0) Red Cell Distribution Width 16.2 % (11.6-14.8) 15.0 % (11.6-14.8) Platelet Count 48 K/UL (150-450) 60 K/UL (150-450) Mean Platelet Volume 9.5 FL (6.5-10.1) 7.9 FL (6.5-10.1) Neutrophils (%) (Auto) % (45.0-75.0) % (45.0-75.0) Lymphocytes (%) (Auto) % (20.0-45.0) % (20.0-45.0) Monocytes (%) (Auto) % (1.0-10.0) % (1.0-10.0) Eosinophils (%) (Auto) % (0.0-3.0) % (0.0-3.0) Basophils (%) (Auto) % (0.0-2.0) % (0.0-2.0) Differential Total Cells Counted 100 100 Neutrophils % (Manual) 46 % (45-75) 62 % (45-75) Lymphocytes % (Manual) 43 % (20-45) 32 % (20-45) Monocytes % (Manual) 8 % (1-10) 4 % (1-10) Eosinophils % (Manual) 3 % (0-3) 1 % (0-3) Basophils % (Manual) 0 % (0-2) 0 % (0-2) Band Neutrophils 0 % (0-8) 1 % (0-8) Platelet Estimate Decreased Decreased Platelet Morphology Normal Normal Hypochromasia 1+ Anisocytosis 1+ 1+ Prothrombin Time 12.0 SEC (9.30-11.50) Prothromb Time International Ratio 1.1 (0.9-1.1) Activated Partial Thromboplast Time 32 SEC (23-33) Sodium Level 142 MMOL/L (136-145) 141 MMOL/L (136-145) Potassium Level 3.8 MMOL/L (3.5-5.1) 3.5 MMOL/L (3.5-5.1) Chloride Level 101 MMOL/L (98-107) 103 MMOL/L (98-107) Carbon Dioxide Level 31 MMOL/L (21-32) 26 MMOL/L (21-32) Anion Gap 10 mmol/L (5-15) 12 mmol/L (5-15) Blood Urea Nitrogen 55 mg/dL (7-18) 34 mg/dL (7-18) Creatinine 4.0 MG/DL (0.55-1.30) 3.2 MG/DL (0.55-1.30) Estimat Glomerular Filtration Rate 10.8 mL/min (>60) 13.9 mL/min (>60) Glucose Level 81 MG/DL (74-106) 101 MG/DL (74-106) Calcium Level 9.2 MG/DL (8.5-10.1) 8.5 MG/DL (8.5-10.1) Phosphorus Level 5.5 MG/DL (2.5-4.9) 3.6 MG/DL (2.5-4.9) Magnesium Level 2.2 MG/DL (1.8-2.4) Total Bilirubin 0.4 MG/DL (0.2-1.0) 0.6 MG/DL (0.2-1.0) Aspartate Amino Transf (AST/SGOT) 19 U/L (15-37) 25 U/L (15-37) Alanine Aminotransferase (ALT/SGPT) 10 U/L (12-78) 15 U/L (12-78) Alkaline Phosphatase 94 U/L (46-116) 109 U/L (46-116) C-Reactive Protein, Quantitative 7.4 mg/dL (0.00-0.90) 5.8 mg/dL (0.00-0.90) Pro-B-Type Natriuretic Peptide 92105 pg/mL (0-125) 69941 pg/mL (0-125) Total Protein 4.9 G/DL (6.4-8.2) 5.2 G/DL (6.4-8.2) Albumin 1.3 G/DL (3.4-5.0) 1.2 G/DL (3.4-5.0) Globulin 3.6 g/dL 4.0 g/dL Albumin/Globulin Ratio 0.4 (1.0-2.7) 0.3 (1.0-2.7) Arterial Blood pH 7.465 (7.350-7.450) 7.510 (7.350-7.450) Arterial Blood Partial Pressure CO2 49.1 mmHg (35.0-45.0) 42.7 mmHg (35.0-45.0) Arterial Blood Partial Pressure O2 81.0 mmHg (75.0-100.0) 453.6 mmHg (75.0-100.0) Arterial Blood HCO3 34.5 mmol/L (22.0-26.0) 33.3 mmol/L (22.0-26.0) Arterial Blood Oxygen Saturation 95.0 % (95-100) 99.0 % (95-100) Arterial Blood Base Excess 9.7 (-2-2) 9.4 (-2-2) Cuauhtemoc Test Positive Positive Troponin I 0.126 ng/mL (0.000-0.056) Test 08/13/19 05:12 White Blood Count 6.4 K/UL (4.8-10.8) Red Blood Count 3.47 M/UL (4.20-5.40) Hemoglobin 10.4 G/DL (12.0-16.0) Hematocrit 30.3 % (37.0-47.0) Mean Corpuscular Volume 87 FL (80-99) Mean Corpuscular Hemoglobin 29.9 PG (27.0-31.0) Mean Corpuscular Hemoglobin Concent 34.3 G/DL (32.0-36.0) Red Cell Distribution Width 15.0 % (11.6-14.8) Platelet Count 83 K/UL (150-450) Mean Platelet Volume 8.5 FL (6.5-10.1) Neutrophils (%) (Auto) % (45.0-75.0) Lymphocytes (%) (Auto) % (20.0-45.0) Monocytes (%) (Auto) % (1.0-10.0) Eosinophils (%) (Auto) % (0.0-3.0) Basophils (%) (Auto) % (0.0-2.0) Sodium Level 142 MMOL/L (136-145) Potassium Level 3.3 MMOL/L (3.5-5.1) Chloride Level 103 MMOL/L (98-107) Carbon Dioxide Level 31 MMOL/L (21-32) Anion Gap 8 mmol/L (5-15) Blood Urea Nitrogen 36 mg/dL (7-18) Creatinine 3.7 MG/DL (0.55-1.30) Estimat Glomerular Filtration Rate 11.8 mL/min (>60) Glucose Level 101 MG/DL (74-106) Calcium Level 8.7 MG/DL (8.5-10.1) Phosphorus Level 4.1 MG/DL (2.5-4.9) Magnesium Level 2.1 MG/DL (1.8-2.4) Total Bilirubin 0.5 MG/DL (0.2-1.0) Aspartate Amino Transf (AST/SGOT) 26 U/L (15-37) Alanine Aminotransferase (ALT/SGPT) < 6 U/L (12-78) Alkaline Phosphatase 121 U/L (46-116) Troponin I 0.557 ng/mL (0.000-0.056) C-Reactive Protein, Quantitative 5.8 mg/dL (0.00-0.90) Pro-B-Type Natriuretic Peptide > 37151 pg/mL (0-125) Total Protein 5.5 G/DL (6.4-8.2) Albumin 1.4 G/DL (3.4-5.0) Globulin 4.1 g/dL Albumin/Globulin Ratio 0.3 (1.0-2.7) Thyroid Stimulating Hormone (TSH) 12.263 uiU/mL (0.358-3.740) Free Thyroxine 1.22 NG/DL (0.76-1.46) Free Triiodothyronine 0.8 pg/mL (2.3-4.2) Height (Feet): 5 Height (Inches): 4.00 Weight (Pounds): 89 Objective gen: nad pulm: on venturimask cv: rrr, no gmr abd: sfot, nt, nd ext: no cce Gio Rob MD Aug 13, 2019 08:31
[2019-08-13] MEDS: Meropenem 500 MG in NS 55 ML IVPB SCH ×2 (09:29→21:05)
[2019-08-13] MEDS: Pantoprazole Inj IVP SCH ×2 (09:29→21:03)
--- NOTE | 2019-08-13 09:50 | Infectious Diseases Prog Note ---
Assessment/Plan Assessment/Plan A; 1. Urinary tract infection with E. coli ESBL 2. Klebsiella sepsis , likely catheter related sepsis. 3. Right shoulder septic arthritis, status post surgery. 4. Diabetes. 5. Hypertension. 6. Anemia 7. Thrombocytopenia improving PLAN: 1. Continue Meropenem 2. Can not change PermCath because off decreased platelets Subjective ROS Limited/Unobtainable: Yes Allergies: Coded Allergies: VANCOMYCIN (Unverified Allergy, Unknown, 08/02/19) Objective Vital Signs Last 24 Hour Vital Signs Date Time Temp Pulse Resp B/P (MAP) Pulse Ox O2 Delivery O2 Flow Rate FiO2 08/13/19 09:00 54 20 155/68 (97) 98 08/13/19 08:43 55 19 94 30 08/13/19 08:00 97.4 49 21 146/73 (97) 98 08/13/19 08:00 30 08/13/19 07:11 100 Bi-Pap 30 08/13/19 07:07 51 28 92 30 08/13/19 07:00 49 19 161/80 (107) 99 08/13/19 06:43 161/68 08/13/19 06:00 61 23 154/68 (96) 100 08/13/19 05:00 49 22 172/74 (106) 99 08/13/19 05:00 48 25 99 30 08/13/19 04:30 50 21 148/68 (94) 99 08/13/19 04:06 49 23 155/107 (123) 99 08/13/19 04:00 30 08/13/19 04:00 97.5 50 18 174/123 (140) 98 08/13/19 04:00 Bi-pap Bi-pap Bi-pap 08/13/19 03:43 48 08/13/19 03:07 53 27 100 30 08/13/19 03:00 52 28 146/81 (102) 94 08/13/19 02:00 50 19 151/66 (94) 100 08/13/19 01:00 50 23 161/69 (99) 97 08/13/19 00:36 53 22 100 30 08/13/19 00:00 Bi-pap Bi-pap Bi-pap 08/13/19 00:00 30 08/13/19 00:00 97.6 52 24 157/69 (98) 100 08/12/19 23:54 156/64 08/12/19 23:41 54 08/12/19 23:09 58 25 100 30 08/12/19 23:00 50 18 156/65 (95) 95 08/12/19 22:00 49 30 157/64 (95) 99 08/12/19 21:03 58 17 100 30 08/12/19 21:00 56 23 158/81 (106) 97 08/12/19 20:35 51 08/12/19 20:00 97.7 53 22 155/75 (101) 100 08/12/19 20:00 30 08/12/19 20:00 Bi-pap Bi-pap Bi-pap 08/12/19 19:30 51 19 162/75 (104) 100 08/12/19 19:18 50 18 155/72 (99) 100 08/12/19 19:03 100 Bi-Pap 100 08/12/19 19:03 61 32 100 30 08/12/19 19:00 51 21 100 08/12/19 18:00 54 25 157/81 (106) 100 08/12/19 17:40 158/63 08/12/19 17:00 49 17 144/62 (89) 100 08/12/19 16:45 51 22 100 30 08/12/19 16:00 30 08/12/19 16:00 Bi-pap Bi-pap Bi-pap 08/12/19 16:00 50 08/12/19 16:00 97.6 49 26 150/74 (99) 100 08/12/19 15:02 46 14 100 30 08/12/19 15:00 50 32 146/77 (100) 100 08/12/19 14:00 51 16 155/78 (103) 100 08/12/19 13:09 52 17 98 30 08/12/19 13:00 53 12 159/67 (97) 100 08/12/19 12:00 53 08/12/19 12:00 30 08/12/19 12:00 97.1 49 20 140/60 (86) 99 08/12/19 12:00 Bi-pap Bi-pap Bi-pap 08/12/19 11:52 155/80 08/12/19 11:01 52 23 100 30 08/12/19 11:00 52 19 154/71 (98) 100 08/12/19 10:00 52 16 167/44 (85) 100 Height (Feet): 5 Height (Inches): 4.00 Weight (Pounds): 89 General Appearance: cachetic HEENT: other - on BIPAP Respiratory/Chest: rhonchi - bilaterally Cardiovascular: bradycardia, other - Permacath Abdomen: soft, non tender Extremities: no edema Neurologic/Psychiatric: disoriented, other - opens eyes Musculoskeletal: atrophy Laboratory Tests Test 08/13/19 05:12 White Blood Count 6.4 K/UL (4.8-10.8) Red Blood Count 3.47 M/UL (4.20-5.40) L Hemoglobin 10.4 G/DL (12.0-16.0) L Hematocrit 30.3 % (37.0-47.0) L Mean Corpuscular Volume 87 FL (80-99) Mean Corpuscular Hemoglobin 29.9 PG (27.0-31.0) Mean Corpuscular Hemoglobin Concent 34.3 G/DL (32.0-36.0) Red Cell Distribution Width 15.0 % (11.6-14.8) H Platelet Count 83 K/UL (150-450) L Mean Platelet Volume 8.5 FL (6.5-10.1) Neutrophils (%) (Auto) % (45.0-75.0) Lymphocytes (%) (Auto) % (20.0-45.0) Monocytes (%) (Auto) % (1.0-10.0) Eosinophils (%) (Auto) % (0.0-3.0) Basophils (%) (Auto) % (0.0-2.0) Neutrophils % (Manual) Pending Lymphocytes % (Manual) Pending Platelet Estimate Pending Platelet Morphology Pending Sodium Level 142 MMOL/L (136-145) Potassium Level 3.3 MMOL/L (3.5-5.1) L Chloride Level 103 MMOL/L (98-107) Carbon Dioxide Level 31 MMOL/L (21-32) Anion Gap 8 mmol/L (5-15) Blood Urea Nitrogen 36 mg/dL (7-18) H Creatinine 3.7 MG/DL (0.55-1.30) H Estimat Glomerular Filtration Rate 11.8 mL/min (>60) Glucose Level 101 MG/DL (74-106) Calcium Level 8.7 MG/DL (8.5-10.1) Phosphorus Level 4.1 MG/DL (2.5-4.9) Magnesium Level 2.1 MG/DL (1.8-2.4) Total Bilirubin 0.5 MG/DL (0.2-1.0) Aspartate Amino Transf (AST/SGOT) 26 U/L (15-37) Alanine Aminotransferase (ALT/SGPT) < 6 U/L (12-78) L Alkaline Phosphatase 121 U/L (46-116) H Troponin I 0.557 ng/mL (0.000-0.056) C-Reactive Protein, Quantitative 5.8 mg/dL (0.00-0.90) H Pro-B-Type Natriuretic Peptide > 97408 pg/mL (0-125) H Total Protein 5.5 G/DL (6.4-8.2) L Albumin 1.4 G/DL (3.4-5.0) L Globulin 4.1 g/dL Albumin/Globulin Ratio 0.3 (1.0-2.7) L Thyroid Stimulating Hormone (TSH) 12.263 uiU/mL (0.358-3.740) Free Thyroxine 1.22 NG/DL (0.76-1.46) Free Triiodothyronine 0.8 pg/mL (2.3-4.2) L Current Medications Medications (Trade) Dose Ordered Sig/Javier Route PRN Reason Start Time Stop Time Status Last Admin Dose Admin Atropine Sulfate (Atropine) 1 mg Q4H PRN IVP Per rx protocol 08/13/19 08:30 09/12/19 08:29 Dextrose (Dextrose 50%) 50 ml Q30M PRN IV Hypoglycemia 08/11/19 10:30 09/04/19 17:44 08/13/19 05:49 Diphenhydramine HCl (Benadryl) 50 mg Q4H PRN IVP Itching 08/09/19 14:30 09/08/19 14:29 08/13/19 02:39 Epoetin Thomas (Epoetin Thomas(ESRD on dialysis)) 4,000 unit THU-THU-THU SUBQ 08/12/19 21:00 09/11/19 20:59 08/12/19 20:35 Hydralazine HCl (Apresoline) 25 mg Q4H PRN IV SBP>160 08/11/19 02:30 09/10/19 02:29 Levothyroxine Sodium (Synthroid) 75 mcg DAILY IV 08/13/19 09:00 09/12/19 08:59 08/13/19 09:29 Meropenem 500 mg/ Sodium Chloride 55 ml @ 110 mls/hr EVERY 12 HOURS IVPB 08/09/19 21:00 08/14/19 20:59 08/13/19 09:29 Metoclopramide HCl (Reglan) 5 mg Q8H PRN IVP Nausea & Vomiting 08/09/19 12:39 09/08/19 12:38 Nitroglycerin (Nitro-Bid) 1 inch Q6HR TOPIC 08/09/19 12:39 09/08/19 12:38 08/13/19 06:43 Pantoprazole (Protonix) 40 mg EVERY 12 HOURS IVP 08/09/19 21:00 09/08/19 10:44 08/13/19 09:29 Warren Parks MD Aug 13, 2019 09:50
--- NOTE | 2019-08-13 10:33 | Critical Care Progress Note ---
Assessment/Plan Assessment/Plan respiratory failure hemoptysis hypoxemia chronic renal failure toxic met encephalopathy severe protein calorie malnutrition cachexia PLAN care noted antibiotics monitor imaging BIPAP for now monitor as is avoid excessive suctioning with coagulopathy elevated head may need intubation; monitor ABG watch fluid status nutrition as able ICU care discussed critical at present requires ICU management feeds as able elevate head medications/laboratory data/nursing notes/ICU care reviewed in detail note reviewed and edited care discussed with RN and RT ICU time spent 40 minutes Critical Care - Subjective Interval Events: care noted labs somewhat improved still on BIPAP still with some congestion ROS Limited/Unobtainable: Yes Condition: critical EKG Rhythm: Sinus Rhythm I&O: Intake and Output 08/12/19 08/13/19 19:00 07:00 Intake Total 55 ml 55 ml Output Total 30 ml 75 ml Balance 25 ml -20 ml IV Total 55 ml 55 ml Output Urine Total 30 ml 75 ml Critical Care - Objective Last 24 Hour Vital Signs Date Time Temp Pulse Resp B/P (MAP) Pulse Ox O2 Delivery O2 Flow Rate FiO2 08/13/19 10:00 57 27 170/87 (114) 98 08/13/19 09:00 54 20 155/68 (97) 98 08/13/19 08:43 55 19 94 30 08/13/19 08:00 97.4 49 21 146/73 (97) 98 08/13/19 08:00 30 08/13/19 08:00 47 08/13/19 07:11 100 Bi-Pap 30 08/13/19 07:07 51 28 92 30 08/13/19 07:00 49 19 161/80 (107) 99 08/13/19 06:43 161/68 08/13/19 06:00 61 23 154/68 (96) 100 08/13/19 05:00 49 22 172/74 (106) 99 08/13/19 05:00 48 25 99 30 08/13/19 04:30 50 21 148/68 (94) 99 08/13/19 04:06 49 23 155/107 (123) 99 08/13/19 04:00 30 08/13/19 04:00 97.5 50 18 174/123 (140) 98 08/13/19 04:00 Bi-pap Bi-pap Bi-pap 08/13/19 03:43 48 08/13/19 03:07 53 27 100 30 08/13/19 03:00 52 28 146/81 (102) 94 08/13/19 02:00 50 19 151/66 (94) 100 08/13/19 01:00 50 23 161/69 (99) 97 08/13/19 00:36 53 22 100 30 08/13/19 00:00 Bi-pap Bi-pap Bi-pap 08/13/19 00:00 30 08/13/19 00:00 97.6 52 24 157/69 (98) 100 08/12/19 23:54 156/64 08/12/19 23:41 54 08/12/19 23:09 58 25 100 30 08/12/19 23:00 50 18 156/65 (95) 95 08/12/19 22:00 49 30 157/64 (95) 99 08/12/19 21:03 58 17 100 30 08/12/19 21:00 56 23 158/81 (106) 97 08/12/19 20:35 51 08/12/19 20:00 97.7 53 22 155/75 (101) 100 08/12/19 20:00 30 08/12/19 20:00 Bi-pap Bi-pap Bi-pap 08/12/19 19:30 51 19 162/75 (104) 100 08/12/19 19:18 50 18 155/72 (99) 100 08/12/19 19:03 100 Bi-Pap 100 08/12/19 19:03 61 32 100 30 08/12/19 19:00 51 21 100 08/12/19 18:00 54 25 157/81 (106) 100 08/12/19 17:40 158/63 08/12/19 17:00 49 17 144/62 (89) 100 08/12/19 16:45 51 22 100 30 08/12/19 16:00 30 08/12/19 16:00 Bi-pap Bi-pap Bi-pap 08/12/19 16:00 50 08/12/19 16:00 97.6 49 26 150/74 (99) 100 08/12/19 15:02 46 14 100 30 08/12/19 15:00 50 32 146/77 (100) 100 08/12/19 14:00 51 16 155/78 (103) 100 08/12/19 13:09 52 17 98 30 08/12/19 13:00 53 12 159/67 (97) 100 08/12/19 12:00 53 08/12/19 12:00 30 08/12/19 12:00 97.1 49 20 140/60 (86) 99 08/12/19 12:00 Bi-pap Bi-pap Bi-pap 08/12/19 11:52 155/80 08/12/19 11:01 52 23 100 30 08/12/19 11:00 52 19 154/71 (98) 100 Labs: Labs Test 08/11/19 05:15 08/11/19 21:51 08/12/19 04:50 08/12/19 07:45 White Blood Count 4.4 K/UL (4.8-10.8) 6.7 K/UL (4.8-10.8) Red Blood Count 2.23 M/UL (4.20-5.40) 3.04 M/UL (4.20-5.40) Hemoglobin 6.7 G/DL (12.0-16.0) 9.2 G/DL (12.0-16.0) Hematocrit 19.7 % (37.0-47.0) 26.4 % (37.0-47.0) Mean Corpuscular Volume 88 FL (80-99) 87 FL (80-99) Mean Corpuscular Hemoglobin 29.8 PG (27.0-31.0) 30.3 PG (27.0-31.0) Mean Corpuscular Hemoglobin Concent 33.8 G/DL (32.0-36.0) 34.9 G/DL (32.0-36.0) Red Cell Distribution Width 16.2 % (11.6-14.8) 15.0 % (11.6-14.8) Platelet Count 48 K/UL (150-450) 60 K/UL (150-450) Mean Platelet Volume 9.5 FL (6.5-10.1) 7.9 FL (6.5-10.1) Neutrophils (%) (Auto) % (45.0-75.0) % (45.0-75.0) Lymphocytes (%) (Auto) % (20.0-45.0) % (20.0-45.0) Monocytes (%) (Auto) % (1.0-10.0) % (1.0-10.0) Eosinophils (%) (Auto) % (0.0-3.0) % (0.0-3.0) Basophils (%) (Auto) % (0.0-2.0) % (0.0-2.0) Differential Total Cells Counted 100 100 Neutrophils % (Manual) 46 % (45-75) 62 % (45-75) Lymphocytes % (Manual) 43 % (20-45) 32 % (20-45) Monocytes % (Manual) 8 % (1-10) 4 % (1-10) Eosinophils % (Manual) 3 % (0-3) 1 % (0-3) Basophils % (Manual) 0 % (0-2) 0 % (0-2) Band Neutrophils 0 % (0-8) 1 % (0-8) Platelet Estimate Decreased Decreased Platelet Morphology Normal Normal Hypochromasia 1+ Anisocytosis 1+ 1+ Prothrombin Time 12.0 SEC (9.30-11.50) Prothromb Time International Ratio 1.1 (0.9-1.1) Activated Partial Thromboplast Time 32 SEC (23-33) Sodium Level 142 MMOL/L (136-145) 141 MMOL/L (136-145) Potassium Level 3.8 MMOL/L (3.5-5.1) 3.5 MMOL/L (3.5-5.1) Chloride Level 101 MMOL/L (98-107) 103 MMOL/L (98-107) Carbon Dioxide Level 31 MMOL/L (21-32) 26 MMOL/L (21-32) Anion Gap 10 mmol/L (5-15) 12 mmol/L (5-15) Blood Urea Nitrogen 55 mg/dL (7-18) 34 mg/dL (7-18) Creatinine 4.0 MG/DL (0.55-1.30) 3.2 MG/DL (0.55-1.30) Estimat Glomerular Filtration Rate 10.8 mL/min (>60) 13.9 mL/min (>60) Glucose Level 81 MG/DL (74-106) 101 MG/DL (74-106) Calcium Level 9.2 MG/DL (8.5-10.1) 8.5 MG/DL (8.5-10.1) Phosphorus Level 5.5 MG/DL (2.5-4.9) 3.6 MG/DL (2.5-4.9) Magnesium Level 2.2 MG/DL (1.8-2.4) Total Bilirubin 0.4 MG/DL (0.2-1.0) 0.6 MG/DL (0.2-1.0) Aspartate Amino Transf (AST/SGOT) 19 U/L (15-37) 25 U/L (15-37) Alanine Aminotransferase (ALT/SGPT) 10 U/L (12-78) 15 U/L (12-78) Alkaline Phosphatase 94 U/L (46-116) 109 U/L (46-116) C-Reactive Protein, Quantitative 7.4 mg/dL (0.00-0.90) 5.8 mg/dL (0.00-0.90) Pro-B-Type Natriuretic Peptide 27990 pg/mL (0-125) 48877 pg/mL (0-125) Total Protein 4.9 G/DL (6.4-8.2) 5.2 G/DL (6.4-8.2) Albumin 1.3 G/DL (3.4-5.0) 1.2 G/DL (3.4-5.0) Globulin 3.6 g/dL 4.0 g/dL Albumin/Globulin Ratio 0.4 (1.0-2.7) 0.3 (1.0-2.7) Arterial Blood pH 7.465 (7.350-7.450) 7.510 (7.350-7.450) Arterial Blood Partial Pressure CO2 49.1 mmHg (35.0-45.0) 42.7 mmHg (35.0-45.0) Arterial Blood Partial Pressure O2 81.0 mmHg (75.0-100.0) 453.6 mmHg (75.0-100.0) Arterial Blood HCO3 34.5 mmol/L (22.0-26.0) 33.3 mmol/L (22.0-26.0) Arterial Blood Oxygen Saturation 95.0 % (95-100) 99.0 % (95-100) Arterial Blood Base Excess 9.7 (-2-2) 9.4 (-2-2) Cuauhtemoc Test Positive Positive Troponin I 0.126 ng/mL (0.000-0.056) Test 08/13/19 05:12 White Blood Count 6.4 K/UL (4.8-10.8) Red Blood Count 3.47 M/UL (4.20-5.40) Hemoglobin 10.4 G/DL (12.0-16.0) Hematocrit 30.3 % (37.0-47.0) Mean Corpuscular Volume 87 FL (80-99) Mean Corpuscular Hemoglobin 29.9 PG (27.0-31.0) Mean Corpuscular Hemoglobin Concent 34.3 G/DL (32.0-36.0) Red Cell Distribution Width 15.0 % (11.6-14.8) Platelet Count 83 K/UL (150-450) Mean Platelet Volume 8.5 FL (6.5-10.1) Neutrophils (%) (Auto) % (45.0-75.0) Lymphocytes (%) (Auto) % (20.0-45.0) Monocytes (%) (Auto) % (1.0-10.0) Eosinophils (%) (Auto) % (0.0-3.0) Basophils (%) (Auto) % (0.0-2.0) Sodium Level 142 MMOL/L (136-145) Potassium Level 3.3 MMOL/L (3.5-5.1) Chloride Level 103 MMOL/L (98-107) Carbon Dioxide Level 31 MMOL/L (21-32) Anion Gap 8 mmol/L (5-15) Blood Urea Nitrogen 36 mg/dL (7-18) Creatinine 3.7 MG/DL (0.55-1.30) Estimat Glomerular Filtration Rate 11.8 mL/min (>60) Glucose Level 101 MG/DL (74-106) Calcium Level 8.7 MG/DL (8.5-10.1) Phosphorus Level 4.1 MG/DL (2.5-4.9) Magnesium Level 2.1 MG/DL (1.8-2.4) Total Bilirubin 0.5 MG/DL (0.2-1.0) Aspartate Amino Transf (AST/SGOT) 26 U/L (15-37) Alanine Aminotransferase (ALT/SGPT) < 6 U/L (12-78) Alkaline Phosphatase 121 U/L (46-116) Troponin I 0.557 ng/mL (0.000-0.056) C-Reactive Protein, Quantitative 5.8 mg/dL (0.00-0.90) Pro-B-Type Natriuretic Peptide > 90378 pg/mL (0-125) Total Protein 5.5 G/DL (6.4-8.2) Albumin 1.4 G/DL (3.4-5.0) Globulin 4.1 g/dL Albumin/Globulin Ratio 0.3 (1.0-2.7) Thyroid Stimulating Hormone (TSH) 12.263 uiU/mL (0.358-3.740) Free Thyroxine 1.22 NG/DL (0.76-1.46) Free Triiodothyronine 0.8 pg/mL (2.3-4.2) Objective: WDWN NAD reduced breath sounds bilaterally without rhonchi or wheeze [id number] without MRG NABS nontender no HSM no CCE contractures on BIPAP poorly responsive nonfocal Accucheck: 87 Malcolm Cruz MD Aug 13, 2019 10:33
--- NOTE | 2019-08-13 10:37 | Nephrology Progress Note ---
Assessment/Plan Problem List: (1) ESRD (end stage renal disease) on dialysis (2) Malnutrition (3) Anemia in CKD (chronic kidney disease) (4) Hypotension (5) Thrombocytopenia (6) Sepsis Assessment: klebsiella in blood Assessment -Early sepsis with shock. -Healthcare-associated pneumonia. -Severe protein-calorie malnutrition. -Thrombocytopenia. - End-stage renal disease. - History of hypertension. - Bradycardia. - HypoThyroid Plan Permacath was removed on August 12 Dialysis today 08/11 Transfusion as needed Patient has hematemesis meds IV as possible Surveillance blood cultures tomorrow Plan to put the permacath back in on Thursday if cultures are negative keep BP and BS in check Inflammatory markers per orders Subjective ROS Limited/Unobtainable: No Constitutional: Reports: malaise, weakness Objective Objective Last 24 Hour Vital Signs Date Time Temp Pulse Resp B/P (MAP) Pulse Ox O2 Delivery O2 Flow Rate FiO2 08/13/19 10:00 57 27 170/87 (114) 98 08/13/19 09:00 54 20 155/68 (97) 98 08/13/19 08:43 55 19 94 30 08/13/19 08:00 97.4 49 21 146/73 (97) 98 08/13/19 08:00 30 08/13/19 08:00 47 08/13/19 07:11 100 Bi-Pap 30 08/13/19 07:07 51 28 92 30 08/13/19 07:00 49 19 161/80 (107) 99 08/13/19 06:43 161/68 08/13/19 06:00 61 23 154/68 (96) 100 08/13/19 05:00 49 22 172/74 (106) 99 08/13/19 05:00 48 25 99 30 08/13/19 04:30 50 21 148/68 (94) 99 08/13/19 04:06 49 23 155/107 (123) 99 08/13/19 04:00 30 08/13/19 04:00 97.5 50 18 174/123 (140) 98 08/13/19 04:00 Bi-pap Bi-pap Bi-pap 08/13/19 03:43 48 08/13/19 03:07 53 27 100 30 08/13/19 03:00 52 28 146/81 (102) 94 08/13/19 02:00 50 19 151/66 (94) 100 08/13/19 01:00 50 23 161/69 (99) 97 08/13/19 00:36 53 22 100 30 08/13/19 00:00 Bi-pap Bi-pap Bi-pap 08/13/19 00:00 30 08/13/19 00:00 97.6 52 24 157/69 (98) 100 08/12/19 23:54 156/64 08/12/19 23:41 54 08/12/19 23:09 58 25 100 30 08/12/19 23:00 50 18 156/65 (95) 95 08/12/19 22:00 49 30 157/64 (95) 99 08/12/19 21:03 58 17 100 30 08/12/19 21:00 56 23 158/81 (106) 97 08/12/19 20:35 51 08/12/19 20:00 97.7 53 22 155/75 (101) 100 08/12/19 20:00 30 08/12/19 20:00 Bi-pap Bi-pap Bi-pap 08/12/19 19:30 51 19 162/75 (104) 100 08/12/19 19:18 50 18 155/72 (99) 100 08/12/19 19:03 100 Bi-Pap 100 08/12/19 19:03 61 32 100 30 08/12/19 19:00 51 21 100 08/12/19 18:00 54 25 157/81 (106) 100 08/12/19 17:40 158/63 08/12/19 17:00 49 17 144/62 (89) 100 08/12/19 16:45 51 22 100 30 08/12/19 16:00 30 08/12/19 16:00 Bi-pap Bi-pap Bi-pap 08/12/19 16:00 50 08/12/19 16:00 97.6 49 26 150/74 (99) 100 08/12/19 15:02 46 14 100 30 08/12/19 15:00 50 32 146/77 (100) 100 08/12/19 14:00 51 16 155/78 (103) 100 08/12/19 13:09 52 17 98 30 08/12/19 13:00 53 12 159/67 (97) 100 08/12/19 12:00 53 08/12/19 12:00 30 08/12/19 12:00 97.1 49 20 140/60 (86) 99 08/12/19 12:00 Bi-pap Bi-pap Bi-pap 08/12/19 11:52 155/80 08/12/19 11:01 52 23 100 30 08/12/19 11:00 52 19 154/71 (98) 100 Intake and Output 08/12/19 08/13/19 19:00 07:00 Intake Total 55 ml 55 ml Output Total 30 ml 75 ml Balance 25 ml -20 ml IV Total 55 ml 55 ml Output Urine Total 30 ml 75 ml Current Medications Medications (Trade) Dose Ordered Sig/Javier Route PRN Reason Start Time Stop Time Status Last Admin Dose Admin Atropine Sulfate (Atropine) 1 mg Q4H PRN IVP Per rx protocol 08/13/19 08:30 09/12/19 08:29 Dextrose (Dextrose 50%) 50 ml Q30M PRN IV Hypoglycemia 08/11/19 10:30 09/04/19 17:44 08/13/19 05:49 Diphenhydramine HCl (Benadryl) 50 mg Q4H PRN IVP Itching 08/09/19 14:30 09/08/19 14:29 08/13/19 02:39 Epoetin Thomas (Epoetin Thomas(ESRD on dialysis)) 4,000 unit THU-THU-THU SUBQ 08/12/19 21:00 09/11/19 20:59 08/12/19 20:35 Hydralazine HCl (Apresoline) 10 mg Q6H IV 08/13/19 12:30 09/10/19 02:29 Levothyroxine Sodium (Synthroid) 75 mcg DAILY IV 08/13/19 09:00 09/12/19 08:59 08/13/19 09:29 Meropenem 500 mg/ Sodium Chloride 55 ml @ 110 mls/hr EVERY 12 HOURS IVPB 08/13/19 21:00 08/18/19 20:59 Metoclopramide HCl (Reglan) 5 mg Q8H PRN IVP Nausea & Vomiting 08/09/19 12:39 09/08/19 12:38 Nitroglycerin (Nitro-Bid) 1 inch Q6HR TOPIC 08/09/19 12:39 09/08/19 12:38 08/13/19 06:43 Pantoprazole (Protonix) 40 mg EVERY 12 HOURS IVP 08/09/19 21:00 09/08/19 10:44 08/13/19 09:29 Laboratory Tests 08/13/19 05:12: White Blood Count 6.4, Red Blood Count 3.47L, Hemoglobin 10.4L, Hematocrit 30.3L , Mean Corpuscular Volume 87, Mean Corpuscular Hemoglobin 29.9, Mean Corpuscular Hemoglobin Concent 34.3, Red Cell Distribution Width 15.0H, Platelet Count 83L, Mean Platelet Volume 8.5, Neutrophils (%) (Auto) , Lymphocytes (%) (Auto) , Monocytes (%) (Auto) , Eosinophils (%) (Auto) , Basophils (%) (Auto) , Neutrophils % (Manual) [Pending], Lymphocytes % (Manual) [Pending], Platelet Estimate [Pending], Platelet Morphology [Pending], Sodium Level 142, Potassium Level 3.3L, Chloride Level 103, Carbon Dioxide Level 31, Anion Gap 8, Blood Urea Nitrogen 36H, Creatinine 3.7H, Estimat Glomerular Filtration Rate 11.8, Glucose Level 101, Calcium Level 8.7, Phosphorus Level 4.1 , Magnesium Level 2.1, Total Bilirubin 0.5, Aspartate Amino Transf (AST/SGOT) 26 , Alanine Aminotransferase (ALT/SGPT) < 6L, Alkaline Phosphatase 121H, Troponin I 0.557H, C-Reactive Protein, Quantitative 5.8H, Pro-B-Type Natriuretic Peptide > 02944D, Total Protein 5.5L, Albumin 1.4L, Globulin 4.1, Albumin/Globulin Ratio 0.3L, Thyroid Stimulating Hormone (TSH) 12.263H, Free Thyroxine 1.22, Free Triiodothyronine 0.8L Height (Feet): 5 Height (Inches): 4.00 Weight (Pounds): 89 General Appearance: lethargic EENT: other - BIPAP Cardiovascular: bradycardia Respiratory/Chest: decreased breath sounds Abdomen: soft Objective no change William Blackwood MD Aug 13, 2019 10:37
[2019-08-13] MEDS: D5NS 1,000 ML IV SCH (11:00)
[2019-08-13] MEDS ORDERED: NS 275ml ONE (12:19)
[2019-08-13] MEDS ORDERED: Tubing Blood Filter IV ONE (13:00)
--- NOTE | 2019-08-13 13:57 | Surgery Progress Note ---
Surgery Progress Note Subjective Additional Comments improving h/hstable comfortable resing in bed dressing changed Objective Last 24 Hour Vital Signs Date Time Temp Pulse Resp B/P (MAP) Pulse Ox O2 Delivery O2 Flow Rate FiO2 08/13/19 13:25 53 35 100 30 08/13/19 13:23 146/69 08/13/19 13:00 52 32 146/69 (94) 97 08/13/19 12:00 30 08/13/19 12:00 Bi-pap Bi-pap Bi-pap 08/13/19 12:00 53 08/13/19 12:00 97.9 54 20 157/105 (122) 100 08/13/19 11:05 148/99 08/13/19 11:00 54 32 148/99 (115) 99 08/13/19 10:40 57 25 99 30 08/13/19 10:00 57 27 170/87 (114) 98 08/13/19 09:00 54 20 155/68 (97) 98 08/13/19 08:43 55 19 94 30 08/13/19 08:00 97.4 49 21 146/73 (97) 98 08/13/19 08:00 30 08/13/19 08:00 47 08/13/19 08:00 Bi-pap Bi-pap Bi-pap 08/13/19 07:11 100 Bi-Pap 30 08/13/19 07:07 51 28 92 30 08/13/19 07:00 49 19 161/80 (107) 99 08/13/19 06:43 161/68 08/13/19 06:00 61 23 154/68 (96) 100 08/13/19 05:00 49 22 172/74 (106) 99 08/13/19 05:00 48 25 99 30 08/13/19 04:30 50 21 148/68 (94) 99 08/13/19 04:06 49 23 155/107 (123) 99 08/13/19 04:00 30 08/13/19 04:00 97.5 50 18 174/123 (140) 98 08/13/19 04:00 Bi-pap Bi-pap Bi-pap 08/13/19 03:43 48 08/13/19 03:07 53 27 100 30 08/13/19 03:00 52 28 146/81 (102) 94 08/13/19 02:00 50 19 151/66 (94) 100 08/13/19 01:00 50 23 161/69 (99) 97 08/13/19 00:36 53 22 100 30 08/13/19 00:00 Bi-pap Bi-pap Bi-pap 08/13/19 00:00 30 08/13/19 00:00 97.6 52 24 157/69 (98) 100 08/12/19 23:54 156/64 08/12/19 23:41 54 08/12/19 23:09 58 25 100 30 08/12/19 23:00 50 18 156/65 (95) 95 08/12/19 22:00 49 30 157/64 (95) 99 08/12/19 21:03 58 17 100 30 08/12/19 21:00 56 23 158/81 (106) 97 08/12/19 20:35 51 08/12/19 20:00 97.7 53 22 155/75 (101) 100 08/12/19 20:00 30 08/12/19 20:00 Bi-pap Bi-pap Bi-pap 08/12/19 19:30 51 19 162/75 (104) 100 08/12/19 19:18 50 18 155/72 (99) 100 08/12/19 19:03 100 Bi-Pap 100 08/12/19 19:03 61 32 100 30 08/12/19 19:00 51 21 100 08/12/19 18:00 54 25 157/81 (106) 100 08/12/19 17:40 158/63 08/12/19 17:00 49 17 144/62 (89) 100 08/12/19 16:45 51 22 100 30 08/12/19 16:00 30 08/12/19 16:00 Bi-pap Bi-pap Bi-pap 08/12/19 16:00 50 08/12/19 16:00 97.6 49 26 150/74 (99) 100 08/12/19 15:02 46 14 100 30 08/12/19 15:00 50 32 146/77 (100) 100 08/12/19 14:00 51 16 155/78 (103) 100 I&O Intake and Output 08/12/19 08/13/19 19:00 07:00 Intake Total 55 ml 55 ml Output Total 30 ml 75 ml Balance 25 ml -20 ml IV Total 55 ml 55 ml Output Urine Total 30 ml 75 ml Cardiovascular: RSR Respiratory: clear Abdomen: soft, non-tender, present bowel sounds Extremities: no cyanosis Laboratory Tests Test 08/13/19 05:12 White Blood Count 6.4 K/UL (4.8-10.8) Red Blood Count 3.47 M/UL (4.20-5.40) L Hemoglobin 10.4 G/DL (12.0-16.0) L Hematocrit 30.3 % (37.0-47.0) L Mean Corpuscular Volume 87 FL (80-99) Mean Corpuscular Hemoglobin 29.9 PG (27.0-31.0) Mean Corpuscular Hemoglobin Concent 34.3 G/DL (32.0-36.0) Red Cell Distribution Width 15.0 % (11.6-14.8) H Platelet Count 83 K/UL (150-450) L Mean Platelet Volume 8.5 FL (6.5-10.1) Neutrophils (%) (Auto) % (45.0-75.0) Lymphocytes (%) (Auto) % (20.0-45.0) Monocytes (%) (Auto) % (1.0-10.0) Eosinophils (%) (Auto) % (0.0-3.0) Basophils (%) (Auto) % (0.0-2.0) Differential Total Cells Counted 100 Neutrophils % (Manual) 49 % (45-75) Lymphocytes % (Manual) 40 % (20-45) Monocytes % (Manual) 9 % (1-10) Eosinophils % (Manual) 1 % (0-3) Basophils % (Manual) 1 % (0-2) Band Neutrophils 0 % (0-8) Platelet Estimate Decreased L Platelet Morphology Normal Hypochromasia 1+ Anisocytosis 1+ Sodium Level 142 MMOL/L (136-145) Potassium Level 3.3 MMOL/L (3.5-5.1) L Chloride Level 103 MMOL/L (98-107) Carbon Dioxide Level 31 MMOL/L (21-32) Anion Gap 8 mmol/L (5-15) Blood Urea Nitrogen 36 mg/dL (7-18) H Creatinine 3.7 MG/DL (0.55-1.30) H Estimat Glomerular Filtration Rate 11.8 mL/min (>60) Glucose Level 101 MG/DL (74-106) Calcium Level 8.7 MG/DL (8.5-10.1) Phosphorus Level 4.1 MG/DL (2.5-4.9) Magnesium Level 2.1 MG/DL (1.8-2.4) Total Bilirubin 0.5 MG/DL (0.2-1.0) Aspartate Amino Transf (AST/SGOT) 26 U/L (15-37) Alanine Aminotransferase (ALT/SGPT) < 6 U/L (12-78) L Alkaline Phosphatase 121 U/L (46-116) H Troponin I 0.557 ng/mL (0.000-0.056) C-Reactive Protein, Quantitative 5.8 mg/dL (0.00-0.90) H Pro-B-Type Natriuretic Peptide > 90310 pg/mL (0-125) H Total Protein 5.5 G/DL (6.4-8.2) L Albumin 1.4 G/DL (3.4-5.0) L Globulin 4.1 g/dL Albumin/Globulin Ratio 0.3 (1.0-2.7) L Thyroid Stimulating Hormone (TSH) 12.263 uiU/mL (0.358-3.740) Free Thyroxine 1.22 NG/DL (0.76-1.46) Free Triiodothyronine 0.8 pg/mL (2.3-4.2) L Plan Problems: (1) Malnutrition Assessment & Plan: DAILY ESTIMATED NEEDS: Needs based on ESRD+ HD, underweight, wound/ 39.5kg 35-40 kcals/kg 1720-1212 total kcals 1.25-1.8 g protein/kg 49-71 g total protein 20-22 mL/kg 790-869 total fluid mLs NUTRITION DIAGNOSIS: * Increased kcal and protein needs r/t underweight status, HD needs, wuond healing as evidenced by pt is underweight per guidelines, ESRD, on HD, admitted non-blanching erythema wounds @ BL heels and sacrum * Swallowing difficulty R/T dysphagia as evidenced by DOUGHMAKER recommends temporary nonoral feeding at this time, s/p NGT insertion, on NGT feeding-> now s/p self removal, NPO. CURRENT TF:NPO PO DIET RECOMMENDATIONS: WHEN SAFE FOR ORAL DIET -> renal/ texture per DOUGHMAKER ENTERAL NUTRITION RECOMMENDATIONS: W/ GI access: Nepro @ 35ml/hr x 22 hrs to provide 770ml, 1386kcal, 62g prot, 560ml free water * W/ GI access, resume TF on Nepro * Initiate Nepro @ 15ml/hr x 6 hrs, advance 10ml q 4-6 hrs as tolerated to goal rate. * Hold 1 hour before and after Synthroid med * HOB over 30 degrees/ water flush per MD. ADDITIONAL RECOMMENDATIONS: 1) Calibrated bed scale wt for accurate CBW -> daily wt monitoring Per HD record: dry wt on 07/30=39.5kg (87lbs) 2) Wound care: (W/ GI access) add Nephorivte x 1 + Balta BID 3) Monitor NPO status: without GI access at this time, s/p pulling out NGT 4) Monitor for hypoglycemia while NPO 5) Monitor for continuity of HD (2) Septic arthritis Assessment & Plan: Pt presented on admission with generalized scaly rash . pt noted to be restless and scratching at skin. Bleeding from oral mucosa noted. Joint deformity noted to R shoulder. Surgical incision approximated with 11 sutures. Erythema but no exudate,or elevation in skin temp at site of incision. Historical incision R hip that is tunneled.Small amt seropurulent exudate noted. Periwound is erythematous,but no elevation in skin temp noted. No odor noted. Non-blanching erythema noted to sacrum. Perianal area is erythematous and excoriated. L heel is boggy with non-blanching erythema. R heel is soft with non-blanching erythema. No evidence of skin breakdown to all other bony prominences. Tx.plan: Cover R shoulder with Drsg and change daily and prn. Cleanse R hip wound with Saline. Apply Therahoney.Apply Cavilon Skin Barrier periwound. Cover with Optifoam drsg. Change every 3 days and prn. Apply Moisture Barrier Paste to perianal area and buttocks. Cover Sacrum with Optifoam drsg. Change every 3 days and prn. Apply Cavilon Skin Barrier to both heels. Cover each heel with Optifoam drsg. Change every 7 days and prn. APM/ELVIA Mattress overlay. Reposition at least every 2hours or as tolerated. Off-load heels with pillow. (3) Wound, open, hip or thigh with complication Assessment & Plan: slow healing will need nutritional optimization difficult ng tube peg when stable sutures removed from right shoulder comfortable (4) Abscess of right hip (5) possible septic arthritis Camilo James Aug 13, 2019 13:57
--- NOTE | 2019-08-13 14:37 | General Progress Note ---
Assessment/Plan Status: not improved, unchanged, deteriorating Assessment/Plan: Assessment - Resp failure --> BIPAP - thrombocytopenia --> improved - Renal failure - aspiration risk - anemia - bradycardia Recommendations - not safe for NGT placement - Consider heme opinion re low platelets - IVF - can place PEG once stablized or if intubated Subjective Allergies: Coded Allergies: VANCOMYCIN (Unverified Allergy, Unknown, 08/02/19) Subjective above noted seen in ICU d/w RN and PMD still bradycardic and on BIPAP Objective Last 24 Hour Vital Signs Date Time Temp Pulse Resp B/P (MAP) Pulse Ox O2 Delivery O2 Flow Rate FiO2 08/13/19 13:25 53 35 100 30 08/13/19 13:23 146/69 08/13/19 13:00 52 32 146/69 (94) 97 08/13/19 12:00 30 08/13/19 12:00 Bi-pap Bi-pap Bi-pap 08/13/19 12:00 53 08/13/19 12:00 97.9 54 20 157/105 (122) 100 08/13/19 11:05 148/99 08/13/19 11:00 54 32 148/99 (115) 99 08/13/19 10:40 57 25 99 30 08/13/19 10:00 57 27 170/87 (114) 98 08/13/19 09:00 54 20 155/68 (97) 98 08/13/19 08:43 55 19 94 30 08/13/19 08:00 97.4 49 21 146/73 (97) 98 08/13/19 08:00 30 08/13/19 08:00 47 08/13/19 08:00 Bi-pap Bi-pap Bi-pap 08/13/19 07:11 100 Bi-Pap 30 08/13/19 07:07 51 28 92 30 08/13/19 07:00 49 19 161/80 (107) 99 08/13/19 06:43 161/68 08/13/19 06:00 61 23 154/68 (96) 100 08/13/19 05:00 49 22 172/74 (106) 99 08/13/19 05:00 48 25 99 30 08/13/19 04:30 50 21 148/68 (94) 99 08/13/19 04:06 49 23 155/107 (123) 99 08/13/19 04:00 30 08/13/19 04:00 97.5 50 18 174/123 (140) 98 08/13/19 04:00 Bi-pap Bi-pap Bi-pap 08/13/19 03:43 48 08/13/19 03:07 53 27 100 30 08/13/19 03:00 52 28 146/81 (102) 94 08/13/19 02:00 50 19 151/66 (94) 100 08/13/19 01:00 50 23 161/69 (99) 97 08/13/19 00:36 53 22 100 30 08/13/19 00:00 Bi-pap Bi-pap Bi-pap 08/13/19 00:00 30 08/13/19 00:00 97.6 52 24 157/69 (98) 100 08/12/19 23:54 156/64 08/12/19 23:41 54 08/12/19 23:09 58 25 100 30 08/12/19 23:00 50 18 156/65 (95) 95 08/12/19 22:00 49 30 157/64 (95) 99 08/12/19 21:03 58 17 100 30 08/12/19 21:00 56 23 158/81 (106) 97 08/12/19 20:35 51 08/12/19 20:00 97.7 53 22 155/75 (101) 100 08/12/19 20:00 30 08/12/19 20:00 Bi-pap Bi-pap Bi-pap 08/12/19 19:30 51 19 162/75 (104) 100 08/12/19 19:18 50 18 155/72 (99) 100 08/12/19 19:03 100 Bi-Pap 100 08/12/19 19:03 61 32 100 30 08/12/19 19:00 51 21 100 08/12/19 18:00 54 25 157/81 (106) 100 08/12/19 17:40 158/63 08/12/19 17:00 49 17 144/62 (89) 100 08/12/19 16:45 51 22 100 30 08/12/19 16:00 30 08/12/19 16:00 Bi-pap Bi-pap Bi-pap 08/12/19 16:00 50 08/12/19 16:00 97.6 49 26 150/74 (99) 100 08/12/19 15:02 46 14 100 30 08/12/19 15:00 50 32 146/77 (100) 100 Intake and Output 08/12/19 08/13/19 19:00 07:00 Intake Total 55 ml 55 ml Output Total 30 ml 75 ml Balance 25 ml -20 ml IV Total 55 ml 55 ml Output Urine Total 30 ml 75 ml Laboratory Tests 08/13/19 05:12: White Blood Count 6.4, Red Blood Count 3.47L, Hemoglobin 10.4L, Hematocrit 30.3L , Mean Corpuscular Volume 87, Mean Corpuscular Hemoglobin 29.9, Mean Corpuscular Hemoglobin Concent 34.3, Red Cell Distribution Width 15.0H, Platelet Count 83L, Mean Platelet Volume 8.5, Neutrophils (%) (Auto) , Lymphocytes (%) (Auto) , Monocytes (%) (Auto) , Eosinophils (%) (Auto) , Basophils (%) (Auto) , Differential Total Cells Counted 100, Neutrophils % ( Manual) 49, Lymphocytes % (Manual) 40, Monocytes % (Manual) 9, Eosinophils % ( Manual) 1, Basophils % (Manual) 1, Band Neutrophils 0, Platelet Estimate DecreasedL, Platelet Morphology Normal, Hypochromasia 1+, Anisocytosis 1+, Sodium Level 142, Potassium Level 3.3L, Chloride Level 103, Carbon Dioxide Level 31, Anion Gap 8, Blood Urea Nitrogen 36H, Creatinine 3.7H, Estimat Glomerular Filtration Rate 11.8, Glucose Level 101, Calcium Level 8.7, Phosphorus Level 4.1, Magnesium Level 2.1, Total Bilirubin 0.5, Aspartate Amino Transf (AST/SGOT) 26, Alanine Aminotransferase (ALT/SGPT) < 6L, Alkaline Phosphatase 121H, Troponin I 0.557H, C-Reactive Protein, Quantitative 5.8H, Pro- B-Type Natriuretic Peptide > 26034U, Total Protein 5.5L, Albumin 1.4L, Globulin 4.1, Albumin/Globulin Ratio 0.3L, Thyroid Stimulating Hormone (TSH) 12.263H, Free Thyroxine 1.22, Free Triiodothyronine 0.8L Height (Feet): 5 Height (Inches): 4.00 Weight (Pounds): 102 Objective Debilitated frail woman NCAT (+) BIPAP supple scattered elidachi RR abd soft ND NT no edema Cristy Elizondo MD Aug 13, 2019 14:36
[2019-08-14] VITALS (24 sets, daily range): BP systolic 131–164; BP diastolic 58–84
--- NOTE | 2019-08-14 01:45 | Progress Note ---
DATE: 08/13/2019 CARDIOLOGY PROGRESS NOTE SUBJECTIVE: Condition remains critical. The patient remains in the intensive care unit. She is requiring suctioning around the clock. She is on BiPAP support. Monitored rhythm sinus and sinus bradycardia. No pauses. Blood pressure parameters high normal range up to 170/87 at times, 146/73, heart rate 49 to 57. OBJECTIVE: LUNGS: Bilateral breath sounds. CARDIAC: Regular rhythm. Slow rate. Normal S1, S2. ABDOMEN: Soft. EXTREMITIES: Trace edema. SKIN: Dialysis catheter site without bleeding. LABORATORY DATA: White count 6.4, hemoglobin 10.4. Potassium 3.3, BUN 36, creatinine 3.7. Troponin 0.557. TSH 12.2. IMPRESSION: 1. Bradycardia. 2. Acute egn-EH-iernznuwh myocardial infarction. 3. Sepsis with shock. 4. Severe protein-calorie malnutrition. 5. End-stage renal disease. 6. Hypothyroid state. 7. Respiratory failure. PLAN: 1. IV thyroid replacement. 2. BiPAP support. 3. Monitor acid-base parameters. 4. Respiratory hygiene. 5. Avoid elevation of potassium. 6. Titrate antihypertensives, but avoid tight blood pressure control. 7. Remains critical and guarded. Abel Stubbs M.D. DR: EMRE JOB#: [id number] CC:
[2019-08-14] MEDS: Nitroglycerin 2% oint pkt TOPIC SCH ×5 (06:00→23:43)
[2019-08-14 06:19] LABS: ALANINE AMINOTRANSFERASE < 6 U/L (12-78); ALBUMIN 1.5 G/DL (3.4-5.0); ALBUMIN/GLOBULIN RATIO 0.4 (1.0-2.7); ALKALINE PHOSPHATASE 120 U/L (46-116); ANION GAP 8 mmol/L (5-15); ASPARTATE AMINO TRANSFERASE 27 U/L (15-37); BILIRUBIN,TOTAL 0.5 MG/DL (0.2-1.0); BLOOD UREA NITROGEN 40 mg/dL (7-18); CALCIUM 8.8 MG/DL (8.5-10.1); CARBON DIOXIDE 31 MMOL/L (21-32); CHLORIDE 104 MMOL/L (98-107); CREATININE 4.1 MG/DL (0.55-1.30); PHOSPHORUS 4.6 MG/DL (2.5-4.9); POTASSIUM 3.3 MMOL/L (3.5-5.1); SODIUM 143 MMOL/L (136-145)
--- NOTE | 2019-08-14 07:23 | General Progress Note ---
Assessment/Plan Status: not improved, unchanged, deteriorating Assessment/Plan: Assessment - Resp failure --> BIPAP - thrombocytopenia --> improved - Renal failure - aspiration risk - anemia - bradycardia Recommendations - Still not safe for NGT placement - Consider heme opinion re low platelets - IVF - can place PEG once stablized or if intubated - alternatively, can re-address hospice Subjective Allergies: Coded Allergies: VANCOMYCIN (Unverified Allergy, Unknown, 08/02/19) Subjective above noted seen in ICU d/w RN and PMD still bradycardic and on BIPAP Objective Last 24 Hour Vital Signs Date Time Temp Pulse Resp B/P (MAP) Pulse Ox O2 Delivery O2 Flow Rate FiO2 08/14/19 07:20 100 Bi-Pap 70 08/14/19 07:00 54 33 164/74 (104) 99 54 08/14/19 06:00 46 27 146/63 (90) 99 46 08/14/19 06:00 146/63 08/14/19 05:24 80 08/14/19 05:12 64 17 98 30 08/14/19 05:00 55 29 155/65 (95) 90 55 08/14/19 04:00 45 08/14/19 04:00 30 08/14/19 04:00 97.1 55 21 154/65 (94) 99 55 08/14/19 04:00 Bi-pap Bi-pap Bi-pap 08/14/19 03:16 61 18 98 30 08/14/19 03:00 55 19 148/58 (88) 95 55 08/14/19 02:00 55 27 143/59 (87) 97 55 08/14/19 01:18 58 20 100 30 08/14/19 01:00 54 20 154/59 (90) 100 54 08/14/19 00:05 140/60 08/14/19 00:00 Bi-pap Bi-pap Bi-pap 08/14/19 00:00 140/60 08/14/19 00:00 97.8 50 24 140/60 (86) 100 50 08/13/19 23:08 43 14 100 30 08/13/19 23:00 47 22 145/96 (112) 97 47 08/13/19 22:00 55 26 174/87 (116) 99 55 08/13/19 21:00 58 24 191/120 (143) 99 58 08/13/19 20:55 42 17 100 30 08/13/19 20:00 50 16 141/58 (85) 98 55 08/13/19 20:00 Bi-pap Bi-pap Bi-pap 08/13/19 20:00 30 08/13/19 20:00 50 08/13/19 19:19 99 Bi-Pap 30 08/13/19 19:19 49 15 99 30 08/13/19 19:00 98.0 49 20 126/61 (82) 99 08/13/19 18:00 55 26 140/67 (91) 98 08/13/19 17:48 145/96 08/13/19 17:48 145/96 08/13/19 17:15 56 17 96 30 08/13/19 17:00 55 24 146/82 (103) 98 08/13/19 16:00 98.1 55 24 159/80 (106) 98 08/13/19 16:00 30 08/13/19 16:00 56 08/13/19 16:00 Bi-pap Bi-pap Bi-pap 08/13/19 15:30 58 27 148/79 (102) 97 08/13/19 15:00 50 25 128/61 (83) 99 08/13/19 14:58 51 19 99 30 08/13/19 14:00 61 22 145/97 (113) 98 08/13/19 13:25 53 35 100 30 08/13/19 13:23 146/69 08/13/19 13:00 52 32 146/69 (94) 97 08/13/19 12:00 30 08/13/19 12:00 Bi-pap Bi-pap Bi-pap 08/13/19 12:00 53 08/13/19 12:00 97.9 54 20 157/105 (122) 100 08/13/19 11:05 148/99 08/13/19 11:00 54 32 148/99 (115) 99 08/13/19 10:40 57 25 99 30 08/13/19 10:00 57 27 170/87 (114) 98 08/13/19 09:00 54 20 155/68 (97) 98 08/13/19 08:43 55 19 94 30 08/13/19 08:00 97.4 49 21 146/73 (97) 98 08/13/19 08:00 30 08/13/19 08:00 47 08/13/19 08:00 Bi-pap Bi-pap Bi-pap Intake and Output 08/13/19 08/14/19 19:00 07:00 Intake Total 375 ml 495 ml Output Total 30 ml Balance 345 ml 495 ml IV Total 375 ml 495 ml Output Urine Total 30 ml # Voids 5 Laboratory Tests 08/14/19 04:55: Sodium Level 143, Potassium Level 3.3L, Chloride Level 104, Carbon Dioxide Level 31, Anion Gap 8, Blood Urea Nitrogen 40H, Creatinine 4.1H, Estimat Glomerular Filtration Rate 10.5, Glucose Level 113H, Uric Acid 7.2, Calcium Level 8.8, Phosphorus Level 4.6, Magnesium Level 2.0, Total Bilirubin 0.5, Aspartate Amino Transf (AST/SGOT) 27, Alanine Aminotransferase (ALT/SGPT) < 6L, Alkaline Phosphatase 120H, C-Reactive Protein, Quantitative 5.8H, Pro-B-Type Natriuretic Peptide > 64904S, Total Protein 5.7L, Albumin 1.5L, Globulin 4.2, Albumin/Globulin Ratio 0.4L Height (Feet): 5 Height (Inches): 4.00 Weight (Pounds): 97 Objective Debilitated frail woman NCAT (+) BIPAP supple scattered ronchi RR abd soft ND NT no edema Cristy Elizondo MD Aug 14, 2019 07:23
[2019-08-14] MEDS: Pantoprazole Inj IVP SCH ×2 (08:47→20:31)
[2019-08-14] MEDS: Meropenem 500 MG in NS 55 ML IVPB SCH ×2 (08:48→20:31)
--- NOTE | 2019-08-14 08:56 | Critical Care Progress Note ---
Assessment/Plan Assessment/Plan respiratory failure hemoptysis hypoxemia chronic renal failure toxic met encephalopathy severe protein calorie malnutrition cachexia PLAN care noted antibiotics monitor imaging and repeat BIPAP for now avoid excessive suctioning with coagulopathy elevated head may need intubation; monitor ABG repeat today watch fluid status nutrition as able off load ICU care discussed critical at present requires ICU management feeds as able elevate head medications/laboratory data/nursing notes/ICU care reviewed in detail note reviewed and edited care discussed with RN and RT ICU time spent >35 minutes coordinating care Critical Care - Subjective Interval Events: care noted and reviewed on BIPAP oxygen needs noted still full code fio2 now worse ROS Limited/Unobtainable: Yes Condition: critical EKG Rhythm: Sinus Rhythm I&O: Intake and Output 08/13/19 08/14/19 19:00 07:00 Intake Total 375 ml 495 ml Output Total 30 ml Balance 345 ml 495 ml IV Total 375 ml 495 ml Output Urine Total 30 ml # Voids 5 Critical Care - Objective Last 24 Hour Vital Signs Date Time Temp Pulse Resp B/P (MAP) Pulse Ox O2 Delivery O2 Flow Rate FiO2 08/14/19 08:00 70 08/14/19 08:00 97.5 55 23 157/74 (101) 100 08/14/19 08:00 Bi-pap Bi-pap Bi-pap Bi-pap 08/14/19 08:00 54 08/14/19 07:35 175/82 08/14/19 07:20 50 25 100 70 08/14/19 07:20 100 Bi-Pap 70 08/14/19 07:00 54 33 164/74 (104) 99 54 08/14/19 06:00 46 27 146/63 (90) 99 46 08/14/19 06:00 146/63 08/14/19 05:24 80 08/14/19 05:12 64 17 98 30 08/14/19 05:00 55 29 155/65 (95) 90 55 08/14/19 04:00 45 08/14/19 04:00 30 08/14/19 04:00 97.1 55 21 154/65 (94) 99 55 08/14/19 04:00 Bi-pap Bi-pap Bi-pap 08/14/19 03:16 61 18 98 30 08/14/19 03:00 55 19 148/58 (88) 95 55 08/14/19 02:00 55 27 143/59 (87) 97 55 08/14/19 01:18 58 20 100 30 08/14/19 01:00 54 20 154/59 (90) 100 54 08/14/19 00:05 140/60 08/14/19 00:00 Bi-pap Bi-pap Bi-pap 08/14/19 00:00 140/60 08/14/19 00:00 97.8 50 24 140/60 (86) 100 50 08/13/19 23:08 43 14 100 30 08/13/19 23:00 47 22 145/96 (112) 97 47 08/13/19 22:00 55 26 174/87 (116) 99 55 08/13/19 21:00 58 24 191/120 (143) 99 58 08/13/19 20:55 42 17 100 30 08/13/19 20:00 50 16 141/58 (85) 98 55 08/13/19 20:00 Bi-pap Bi-pap Bi-pap 08/13/19 20:00 30 08/13/19 20:00 50 08/13/19 19:19 99 Bi-Pap 30 08/13/19 19:19 49 15 99 30 08/13/19 19:00 98.0 49 20 126/61 (82) 99 08/13/19 18:00 55 26 140/67 (91) 98 08/13/19 17:48 145/96 08/13/19 17:48 145/96 08/13/19 17:15 56 17 96 30 08/13/19 17:00 55 24 146/82 (103) 98 08/13/19 16:00 98.1 55 24 159/80 (106) 98 08/13/19 16:00 30 08/13/19 16:00 56 08/13/19 16:00 Bi-pap Bi-pap Bi-pap 08/13/19 15:30 58 27 148/79 (102) 97 08/13/19 15:00 50 25 128/61 (83) 99 08/13/19 14:58 51 19 99 30 08/13/19 14:00 61 22 145/97 (113) 98 08/13/19 13:25 53 35 100 30 08/13/19 13:23 146/69 08/13/19 13:00 52 32 146/69 (94) 97 08/13/19 12:00 30 08/13/19 12:00 Bi-pap Bi-pap Bi-pap 08/13/19 12:00 53 08/13/19 12:00 97.9 54 20 157/105 (122) 100 08/13/19 11:05 148/99 08/13/19 11:00 54 32 148/99 (115) 99 08/13/19 10:40 57 25 99 30 08/13/19 10:00 57 27 170/87 (114) 98 08/13/19 09:00 54 20 155/68 (97) 98 Labs: Labs Test 08/11/19 21:51 08/12/19 04:50 08/12/19 07:45 08/13/19 05:12 Arterial Blood pH 7.465 (7.350-7.450) 7.510 (7.350-7.450) Arterial Blood Partial Pressure CO2 49.1 mmHg (35.0-45.0) 42.7 mmHg (35.0-45.0) Arterial Blood Partial Pressure O2 81.0 mmHg (75.0-100.0) 453.6 mmHg (75.0-100.0) Arterial Blood HCO3 34.5 mmol/L (22.0-26.0) 33.3 mmol/L (22.0-26.0) Arterial Blood Oxygen Saturation 95.0 % (95-100) 99.0 % (95-100) Arterial Blood Base Excess 9.7 (-2-2) 9.4 (-2-2) Cuauhtemoc Test Positive Positive White Blood Count 6.7 K/UL (4.8-10.8) 6.4 K/UL (4.8-10.8) Red Blood Count 3.04 M/UL (4.20-5.40) 3.47 M/UL (4.20-5.40) Hemoglobin 9.2 G/DL (12.0-16.0) 10.4 G/DL (12.0-16.0) Hematocrit 26.4 % (37.0-47.0) 30.3 % (37.0-47.0) Mean Corpuscular Volume 87 FL (80-99) 87 FL (80-99) Mean Corpuscular Hemoglobin 30.3 PG (27.0-31.0) 29.9 PG (27.0-31.0) Mean Corpuscular Hemoglobin Concent 34.9 G/DL (32.0-36.0) 34.3 G/DL (32.0-36.0) Red Cell Distribution Width 15.0 % (11.6-14.8) 15.0 % (11.6-14.8) Platelet Count 60 K/UL (150-450) 83 K/UL (150-450) Mean Platelet Volume 7.9 FL (6.5-10.1) 8.5 FL (6.5-10.1) Neutrophils (%) (Auto) % (45.0-75.0) % (45.0-75.0) Lymphocytes (%) (Auto) % (20.0-45.0) % (20.0-45.0) Monocytes (%) (Auto) % (1.0-10.0) % (1.0-10.0) Eosinophils (%) (Auto) % (0.0-3.0) % (0.0-3.0) Basophils (%) (Auto) % (0.0-2.0) % (0.0-2.0) Differential Total Cells Counted 100 100 Neutrophils % (Manual) 62 % (45-75) 49 % (45-75) Lymphocytes % (Manual) 32 % (20-45) 40 % (20-45) Monocytes % (Manual) 4 % (1-10) 9 % (1-10) Eosinophils % (Manual) 1 % (0-3) 1 % (0-3) Basophils % (Manual) 0 % (0-2) 1 % (0-2) Band Neutrophils 1 % (0-8) 0 % (0-8) Platelet Estimate Decreased Decreased Platelet Morphology Normal Normal Anisocytosis 1+ 1+ Sodium Level 141 MMOL/L (136-145) 142 MMOL/L (136-145) Potassium Level 3.5 MMOL/L (3.5-5.1) 3.3 MMOL/L (3.5-5.1) Chloride Level 103 MMOL/L (98-107) 103 MMOL/L (98-107) Carbon Dioxide Level 26 MMOL/L (21-32) 31 MMOL/L (21-32) Anion Gap 12 mmol/L (5-15) 8 mmol/L (5-15) Blood Urea Nitrogen 34 mg/dL (7-18) 36 mg/dL (7-18) Creatinine 3.2 MG/DL (0.55-1.30) 3.7 MG/DL (0.55-1.30) Estimat Glomerular Filtration Rate 13.9 mL/min (>60) 11.8 mL/min (>60) Glucose Level 101 MG/DL (74-106) 101 MG/DL (74-106) Calcium Level 8.5 MG/DL (8.5-10.1) 8.7 MG/DL (8.5-10.1) Phosphorus Level 3.6 MG/DL (2.5-4.9) 4.1 MG/DL (2.5-4.9) Total Bilirubin 0.6 MG/DL (0.2-1.0) 0.5 MG/DL (0.2-1.0) Aspartate Amino Transf (AST/SGOT) 25 U/L (15-37) 26 U/L (15-37) Alanine Aminotransferase (ALT/SGPT) 15 U/L (12-78) < 6 U/L (12-78) Alkaline Phosphatase 109 U/L (46-116) 121 U/L (46-116) Troponin I 0.126 ng/mL (0.000-0.056) 0.557 ng/mL (0.000-0.056) C-Reactive Protein, Quantitative 5.8 mg/dL (0.00-0.90) 5.8 mg/dL (0.00-0.90) Pro-B-Type Natriuretic Peptide 52144 pg/mL (0-125) > 05697 pg/mL (0-125) Total Protein 5.2 G/DL (6.4-8.2) 5.5 G/DL (6.4-8.2) Albumin 1.2 G/DL (3.4-5.0) 1.4 G/DL (3.4-5.0) Globulin 4.0 g/dL 4.1 g/dL Albumin/Globulin Ratio 0.3 (1.0-2.7) 0.3 (1.0-2.7) Hypochromasia 1+ Magnesium Level 2.1 MG/DL (1.8-2.4) Thyroid Stimulating Hormone (TSH) 12.263 uiU/mL (0.358-3.740) Free Thyroxine 1.22 NG/DL (0.76-1.46) Free Triiodothyronine 0.8 pg/mL (2.3-4.2) Test 08/14/19 04:55 Sodium Level 143 MMOL/L (136-145) Potassium Level 3.3 MMOL/L (3.5-5.1) Chloride Level 104 MMOL/L (98-107) Carbon Dioxide Level 31 MMOL/L (21-32) Anion Gap 8 mmol/L (5-15) Blood Urea Nitrogen 40 mg/dL (7-18) Creatinine 4.1 MG/DL (0.55-1.30) Estimat Glomerular Filtration Rate 10.5 mL/min (>60) Glucose Level 113 MG/DL (74-106) Uric Acid 7.2 MG/DL (2.6-7.2) Calcium Level 8.8 MG/DL (8.5-10.1) Phosphorus Level 4.6 MG/DL (2.5-4.9) Magnesium Level 2.0 MG/DL (1.8-2.4) Total Bilirubin 0.5 MG/DL (0.2-1.0) Aspartate Amino Transf (AST/SGOT) 27 U/L (15-37) Alanine Aminotransferase (ALT/SGPT) < 6 U/L (12-78) Alkaline Phosphatase 120 U/L (46-116) C-Reactive Protein, Quantitative 5.8 mg/dL (0.00-0.90) Pro-B-Type Natriuretic Peptide > 65439 pg/mL (0-125) Total Protein 5.7 G/DL (6.4-8.2) Albumin 1.5 G/DL (3.4-5.0) Globulin 4.2 g/dL Albumin/Globulin Ratio 0.4 (1.0-2.7) Objective: WDWN NAD reduced breath sounds bilaterally without rhonchi or wheeze [id number] without MRG NABS nontender no HSM no CCE contractures on BIPAP poorly responsive nonfocal reviewed and edited Accucheck: 107 Malcolm Cruz MD Aug 14, 2019 08:56
[2019-08-14] MEDS: D5NS 1,000 ML IV SCH (09:50)
--- NOTE | 2019-08-14 10:39 | Nephrology Progress Note ---
Assessment/Plan Problem List: (1) ESRD (end stage renal disease) on dialysis (2) Malnutrition (3) Anemia in CKD (chronic kidney disease) (4) Hypotension (5) Thrombocytopenia (6) Sepsis Assessment: klebsiella in blood Assessment -Early sepsis with shock. -Healthcare-associated pneumonia. -Severe protein-calorie malnutrition. -Thrombocytopenia. - End-stage renal disease. - History of hypertension. - Bradycardia. - HypoThyroid Plan Permacath was removed on August 12 Dialysis 08/11 Transfusion as needed Patient had hematemesis meds IV as possible Surveillance blood cultures tomorrow Plan to put the permacath back in on Thursday if cultures are negative keep BP and BS in check Inflammatory markers per orders Subjective ROS Limited/Unobtainable: Yes Objective Objective Last 24 Hour Vital Signs Date Time Temp Pulse Resp B/P (MAP) Pulse Ox O2 Delivery O2 Flow Rate FiO2 08/14/19 10:00 49 13 159/64 (95) 98 08/14/19 09:19 60 08/14/19 09:19 49 20 99 60 08/14/19 09:00 51 19 150/66 (94) 100 08/14/19 08:00 70 08/14/19 08:00 97.5 55 23 157/74 (101) 100 08/14/19 08:00 Bi-pap Bi-pap Bi-pap Bi-pap 08/14/19 08:00 54 08/14/19 07:35 175/82 08/14/19 07:20 50 25 100 70 08/14/19 07:20 100 Bi-Pap 70 08/14/19 07:00 54 33 164/74 (104) 99 54 08/14/19 06:00 46 27 146/63 (90) 99 46 08/14/19 06:00 146/63 08/14/19 05:24 80 08/14/19 05:12 64 17 98 30 08/14/19 05:00 55 29 155/65 (95) 90 55 08/14/19 04:00 45 08/14/19 04:00 30 08/14/19 04:00 97.1 55 21 154/65 (94) 99 55 08/14/19 04:00 Bi-pap Bi-pap Bi-pap 08/14/19 03:16 61 18 98 30 08/14/19 03:00 55 19 148/58 (88) 95 55 08/14/19 02:00 55 27 143/59 (87) 97 55 08/14/19 01:18 58 20 100 30 08/14/19 01:00 54 20 154/59 (90) 100 54 08/14/19 00:05 140/60 08/14/19 00:00 Bi-pap Bi-pap Bi-pap 08/14/19 00:00 140/60 08/14/19 00:00 97.8 50 24 140/60 (86) 100 50 08/13/19 23:08 43 14 100 30 08/13/19 23:00 47 22 145/96 (112) 97 47 08/13/19 22:00 55 26 174/87 (116) 99 55 08/13/19 21:00 58 24 191/120 (143) 99 58 08/13/19 20:55 42 17 100 30 08/13/19 20:00 50 16 141/58 (85) 98 55 08/13/19 20:00 Bi-pap Bi-pap Bi-pap 08/13/19 20:00 30 08/13/19 20:00 50 08/13/19 19:19 99 Bi-Pap 30 08/13/19 19:19 49 15 99 30 08/13/19 19:00 98.0 49 20 126/61 (82) 99 08/13/19 18:00 55 26 140/67 (91) 98 08/13/19 17:48 145/96 08/13/19 17:48 145/96 08/13/19 17:15 56 17 96 30 08/13/19 17:00 55 24 146/82 (103) 98 08/13/19 16:00 98.1 55 24 159/80 (106) 98 08/13/19 16:00 30 08/13/19 16:00 56 08/13/19 16:00 Bi-pap Bi-pap Bi-pap 08/13/19 15:30 58 27 148/79 (102) 97 08/13/19 15:00 50 25 128/61 (83) 99 08/13/19 14:58 51 19 99 30 08/13/19 14:00 61 22 145/97 (113) 98 08/13/19 13:25 53 35 100 30 08/13/19 13:23 146/69 08/13/19 13:00 52 32 146/69 (94) 97 08/13/19 12:00 30 08/13/19 12:00 Bi-pap Bi-pap Bi-pap 08/13/19 12:00 53 08/13/19 12:00 97.9 54 20 157/105 (122) 100 08/13/19 11:05 148/99 08/13/19 11:00 54 32 148/99 (115) 99 08/13/19 10:40 57 25 99 30 Intake and Output 08/13/19 08/14/19 19:00 07:00 Intake Total 375 ml 535 ml Output Total 30 ml Balance 345 ml 535 ml IV Total 375 ml 535 ml Output Urine Total 30 ml # Voids 5 Laboratory Tests 08/14/19 04:55: Sodium Level 143, Potassium Level 3.3L, Chloride Level 104, Carbon Dioxide Level 31, Anion Gap 8, Blood Urea Nitrogen 40H, Creatinine 4.1H, Estimat Glomerular Filtration Rate 10.5, Glucose Level 113H, Uric Acid 7.2, Calcium Level 8.8, Phosphorus Level 4.6, Magnesium Level 2.0, Total Bilirubin 0.5, Aspartate Amino Transf (AST/SGOT) 27, Alanine Aminotransferase (ALT/SGPT) < 6L, Alkaline Phosphatase 120H, C-Reactive Protein, Quantitative 5.8H, Pro-B-Type Natriuretic Peptide > 08675W, Total Protein 5.7L, Albumin 1.5L, Globulin 4.2, Albumin/Globulin Ratio 0.4L 08/14/19 09:38: Arterial Blood pH [Pending], Arterial Blood Partial Pressure CO2 [Pending], Arterial Blood Partial Pressure O2 [Pending], Arterial Blood HCO3 [Pending], Arterial Blood Oxygen Saturation [Pending], Arterial Blood Base Excess [Pending] , Cuauhtemoc Test [Pending] Height (Feet): 5 Height (Inches): 4.00 Weight (Pounds): 97 General Appearance: lethargic EENT: other - BIPAP Respiratory/Chest: decreased breath sounds Abdomen: soft Objective no change William Blackwood MD Aug 14, 2019 10:39
--- NOTE | 2019-08-14 11:03 | Infectious Diseases Prog Note ---
Assessment/Plan Assessment/Plan antibiotics : meropenem A 1. klebsiella sepsis s/p catheter removal 2. e.coli UTI 3. right shoulder septic arthritis with staph aureus 4. renal failure 5. thrombocytopenia improving 6. diabetes mellitus 7. hypertension 8. GI bleeding P 1. continue meropenem 3 more days 2. will follow up cultures Subjective ROS Limited/Unobtainable: Yes Allergies: Coded Allergies: VANCOMYCIN (Unverified Allergy, Unknown, 08/02/19) Objective Vital Signs Last 24 Hour Vital Signs Date Time Temp Pulse Resp B/P (MAP) Pulse Ox O2 Delivery O2 Flow Rate FiO2 08/14/19 10:00 49 13 159/64 (95) 98 08/14/19 09:19 60 08/14/19 09:19 49 20 99 60 08/14/19 09:00 51 19 150/66 (94) 100 08/14/19 08:00 70 08/14/19 08:00 97.5 55 23 157/74 (101) 100 08/14/19 08:00 Bi-pap Bi-pap Bi-pap Bi-pap 08/14/19 08:00 54 08/14/19 07:35 175/82 08/14/19 07:20 50 25 100 70 08/14/19 07:20 100 Bi-Pap 70 08/14/19 07:00 54 33 164/74 (104) 99 54 08/14/19 06:00 46 27 146/63 (90) 99 46 08/14/19 06:00 146/63 08/14/19 05:24 80 08/14/19 05:12 64 17 98 30 08/14/19 05:00 55 29 155/65 (95) 90 55 08/14/19 04:00 45 08/14/19 04:00 30 08/14/19 04:00 97.1 55 21 154/65 (94) 99 55 08/14/19 04:00 Bi-pap Bi-pap Bi-pap 08/14/19 03:16 61 18 98 30 08/14/19 03:00 55 19 148/58 (88) 95 55 08/14/19 02:00 55 27 143/59 (87) 97 55 08/14/19 01:18 58 20 100 30 08/14/19 01:00 54 20 154/59 (90) 100 54 08/14/19 00:05 140/60 08/14/19 00:00 Bi-pap Bi-pap Bi-pap 08/14/19 00:00 140/60 08/14/19 00:00 97.8 50 24 140/60 (86) 100 50 08/13/19 23:08 43 14 100 30 08/13/19 23:00 47 22 145/96 (112) 97 47 08/13/19 22:00 55 26 174/87 (116) 99 55 08/13/19 21:00 58 24 191/120 (143) 99 58 08/13/19 20:55 42 17 100 30 08/13/19 20:00 50 16 141/58 (85) 98 55 08/13/19 20:00 Bi-pap Bi-pap Bi-pap 08/13/19 20:00 30 08/13/19 20:00 50 08/13/19 19:19 99 Bi-Pap 30 08/13/19 19:19 49 15 99 30 08/13/19 19:00 98.0 49 20 126/61 (82) 99 08/13/19 18:00 55 26 140/67 (91) 98 08/13/19 17:48 145/96 08/13/19 17:48 145/96 08/13/19 17:15 56 17 96 30 08/13/19 17:00 55 24 146/82 (103) 98 08/13/19 16:00 98.1 55 24 159/80 (106) 98 08/13/19 16:00 30 08/13/19 16:00 56 08/13/19 16:00 Bi-pap Bi-pap Bi-pap 08/13/19 15:30 58 27 148/79 (102) 97 08/13/19 15:00 50 25 128/61 (83) 99 08/13/19 14:58 51 19 99 30 08/13/19 14:00 61 22 145/97 (113) 98 08/13/19 13:25 53 35 100 30 08/13/19 13:23 146/69 08/13/19 13:00 52 32 146/69 (94) 97 08/13/19 12:00 30 08/13/19 12:00 Bi-pap Bi-pap Bi-pap 08/13/19 12:00 53 2/29/20 12:00 97.9 54 20 157/105 (122) 100 08/13/19 11:05 148/99 Height (Feet): 5 Height (Inches): 4.00 Weight (Pounds): 97 HEENT: other - on bipap Respiratory/Chest: lungs clear Cardiovascular: normal rate, regular rhythm, no gallop/murmur Abdomen: soft, non tender Extremities: no edema, other - right shoulder wound clean Laboratory Tests Test 08/14/19 04:55 08/14/19 09:38 Sodium Level 143 MMOL/L (136-145) Potassium Level 3.3 MMOL/L (3.5-5.1) L Chloride Level 104 MMOL/L (98-107) Carbon Dioxide Level 31 MMOL/L (21-32) Anion Gap 8 mmol/L (5-15) Blood Urea Nitrogen 40 mg/dL (7-18) H Creatinine 4.1 MG/DL (0.55-1.30) H Estimat Glomerular Filtration Rate 10.5 mL/min (>60) Glucose Level 113 MG/DL (74-106) H Uric Acid 7.2 MG/DL (2.6-7.2) Calcium Level 8.8 MG/DL (8.5-10.1) Phosphorus Level 4.6 MG/DL (2.5-4.9) Magnesium Level 2.0 MG/DL (1.8-2.4) Total Bilirubin 0.5 MG/DL (0.2-1.0) Aspartate Amino Transf (AST/SGOT) 27 U/L (15-37) Alanine Aminotransferase (ALT/SGPT) < 6 U/L (12-78) L Alkaline Phosphatase 120 U/L (46-116) H C-Reactive Protein, Quantitative 5.8 mg/dL (0.00-0.90) H Pro-B-Type Natriuretic Peptide > 53165 pg/mL (0-125) H Total Protein 5.7 G/DL (6.4-8.2) L Albumin 1.5 G/DL (3.4-5.0) L Globulin 4.2 g/dL Albumin/Globulin Ratio 0.4 (1.0-2.7) L Arterial Blood pH Pending Arterial Blood Partial Pressure CO2 Pending Arterial Blood Partial Pressure O2 Pending Arterial Blood HCO3 Pending Arterial Blood Oxygen Saturation Pending Arterial Blood Base Excess Pending Cuauhtemoc Test Pending Current Medications Medications (Trade) Dose Ordered Sig/Javier Route PRN Reason Start Time Stop Time Status Last Admin Dose Admin Atropine Sulfate (Atropine) 1 mg Q4H PRN IVP Per rx protocol 08/13/19 08:30 09/12/19 08:29 Dextrose (Dextrose 50%) 50 ml Q30M PRN IV Hypoglycemia 08/11/19 10:30 09/04/19 17:44 08/13/19 05:49 Dextrose/Sodium Chloride 1,000 ml @ 40 mls/hr Q24H IV 08/13/19 10:30 09/12/19 10:29 08/14/19 09:50 Diphenhydramine HCl (Benadryl) 50 mg Q4H PRN IVP Itching 08/09/19 14:30 09/08/19 14:29 08/13/19 02:39 Epoetin Thomas (Epoetin Thomas(ESRD on dialysis)) 4,000 unit [id number]-[id number]-THU SUBQ 08/12/19 21:00 09/11/19 20:59 08/12/19 20:35 Hydralazine HCl (Apresoline) 25 mg Q6H PRN IV For High Blood Pressure 08/14/19 01:45 09/13/19 01:44 08/14/19 07:35 Levothyroxine Sodium (Synthroid) 75 mcg DAILY IV 08/13/19 09:00 09/12/19 08:59 08/14/19 08:47 Meropenem 500 mg/ Sodium Chloride 55 ml @ 110 mls/hr EVERY 12 HOURS IVPB 08/13/19 21:00 08/18/19 20:59 08/14/19 08:48 Metoclopramide HCl (Reglan) 5 mg Q8H PRN IVP Nausea & Vomiting 08/09/19 12:39 09/08/19 12:38 Nitroglycerin (Nitro-Bid) 1 inch Q6HR TOPIC 08/09/19 12:39 09/08/19 12:38 08/13/19 17:48 Pantoprazole (Protonix) 40 mg EVERY 12 HOURS IVP 08/09/19 21:00 09/08/19 10:44 08/14/19 08:47 Melissa Solares MD Aug 14, 2019 11:03
--- NOTE | 2019-08-14 11:13 | Diagnostic Imaging Report ---
EXAM: XR Chest, 1 View CLINICAL HISTORY: SOB TECHNIQUE: Frontal view of the chest. COMPARISON: Chest radiograph on 08/09/2019 FINDINGS: Hardware: None. Lungs/pleura: Increased, now completely opacified left hemithorax. Increased diffuse hazy opacity in the right lung and increased patchy opacities at the right lung base. Pulmonary vasculature congestion. Heart/mediastinum: Cardiomediastinal silhouette is obscured by patient rotation and left lung opacity. Atherosclerotic calcifications of the aorta. Soft tissues: Unremarkable. Bones: No acute fracture. Upper abdomen: Normal. IMPRESSION: Increased, now completely opacified left hemithorax. Increased diffuse hazy opacity in the right lung and increased patchy opacities at the right lung base. Pulmonary vasculature congestion.
--- NOTE | 2019-08-14 12:05 | General Progress Note ---
Assessment/Plan Problem List: (1) Failure to thrive (0-17) ICD Codes: R62.51 - Failure to thrive (0-17) SNOMED: 654141049 (2) Hypertensive kidney disease ICD Codes: I12.9 - Hypertensive chronic kidney disease with stage 1 through stage 4 chronic kidney disease, or unspecified chronic kidney disease SNOMED: 22418880 (3) Pneumonia ICD Codes: J18.9 - Pneumonia, unspecified organism SNOMED: 213221961 Qualifiers: Qualified Codes: J18.9 - Pneumonia, unspecified organism (4) ESRD (end stage renal disease) ICD Codes: N18.6 - End stage renal disease SNOMED: 87184655 (5) Septic arthritis ICD Codes: M00.9 - Pyogenic arthritis, unspecified SNOMED: 708847605 (6) Thrombocytopenia ICD Codes: D69.6 - Thrombocytopenia, unspecified SNOMED: 688440351 (7) Hypotension ICD Codes: I95.9 - Hypotension, unspecified SNOMED: 38905645 Qualifiers: Qualified Codes: I95.3 - Hypotension of hemodialysis (8) Malnutrition ICD Codes: E46 - Unspecified protein-calorie malnutrition SNOMED: 47713678 Status: stable, not improved, unchanged, deteriorating Assessment/Plan: increased synthroid cont icu care o2/bipap prn resp rx/suctioning transfuse plts and rbcs as needed iv PPI iv abx replace perm cath tomorrow- defer to renal bailey for urinary retention iv bp rx eventually needs GT when resp status stable- will d/w pulm and ID critical and guarded gt when stable Subjective ROS Limited/Unobtainable: No Constitutional: Reports: malaise, weakness HEENT: Reports: no symptoms Cardiovascular: Reports: no symptoms Respiratory: Reports: cough, shortness of breath Gastrointestinal/Abdominal: Reports: difficulty swallowing Genitourinary: Reports: no symptoms Neurologic/Psychiatric: Reports: pre-existing deficit Endocrine: Reports: no symptoms Hematologic/Lymphatic: Reports: anemia Allergies: Coded Allergies: VANCOMYCIN (Unverified Allergy, Unknown, 08/02/19) All Systems: reviewed and negative except above Subjective remains bradycardic. 50s. on bipap. no hemoptysis. no fevers. d/w night rn. Objective Last 24 Hour Vital Signs Date Time Temp Pulse Resp B/P (MAP) Pulse Ox O2 Delivery O2 Flow Rate FiO2 3/1/20 11:21 153/67 08/14/19 11:00 60 31 153/67 (95) 98 08/14/19 10:00 49 13 159/64 (95) 98 08/14/19 09:19 60 08/14/19 09:19 49 20 99 60 08/14/19 09:00 51 19 150/66 (94) 100 08/14/19 08:00 70 08/14/19 08:00 97.5 55 23 157/74 (101) 100 08/14/19 08:00 Bi-pap Bi-pap Bi-pap Bi-pap 08/14/19 08:00 54 08/14/19 07:35 175/82 08/14/19 07:20 50 25 100 70 08/14/19 07:20 100 Bi-Pap 70 08/14/19 07:00 54 33 164/74 (104) 99 54 08/14/19 06:00 46 27 146/63 (90) 99 46 08/14/19 06:00 146/63 08/14/19 05:24 80 08/14/19 05:12 64 17 98 30 08/14/19 05:00 55 29 155/65 (95) 90 55 08/14/19 04:00 45 08/14/19 04:00 30 08/14/19 04:00 97.1 55 21 154/65 (94) 99 55 08/14/19 04:00 Bi-pap Bi-pap Bi-pap 08/14/19 03:16 61 18 98 30 08/14/19 03:00 55 19 148/58 (88) 95 55 08/14/19 02:00 55 27 143/59 (87) 97 55 08/14/19 01:18 58 20 100 30 08/14/19 01:00 54 20 154/59 (90) 100 54 08/14/19 00:05 140/60 08/14/19 00:00 Bi-pap Bi-pap Bi-pap 08/14/19 00:00 140/60 08/14/19 00:00 97.8 50 24 140/60 (86) 100 50 08/13/19 23:08 43 14 100 30 08/13/19 23:00 47 22 145/96 (112) 97 47 08/13/19 22:00 55 26 174/87 (116) 99 55 08/13/19 21:00 58 24 191/120 (143) 99 58 08/13/19 20:55 42 17 100 30 08/13/19 20:00 50 16 141/58 (85) 98 55 08/13/19 20:00 Bi-pap Bi-pap Bi-pap 08/13/19 20:00 30 08/13/19 20:00 50 08/13/19 19:19 99 Bi-Pap 30 08/13/19 19:19 49 15 99 30 08/13/19 19:00 98.0 49 20 126/61 (82) 99 08/13/19 18:00 55 26 140/67 (91) 98 08/13/19 17:48 145/96 08/13/19 17:48 145/96 08/13/19 17:15 56 17 96 30 08/13/19 17:00 55 24 146/82 (103) 98 08/13/19 16:00 98.1 55 24 159/80 (106) 98 08/13/19 16:00 30 08/13/19 16:00 56 08/13/19 16:00 Bi-pap Bi-pap Bi-pap 08/13/19 15:30 58 27 148/79 (102) 97 08/13/19 15:00 50 25 128/61 (83) 99 08/13/19 14:58 51 19 99 30 08/13/19 14:00 61 22 145/97 (113) 98 08/13/19 13:25 53 35 100 30 08/13/19 13:23 146/69 08/13/19 13:00 52 32 146/69 (94) 97 Intake and Output 08/13/19 08/14/19 19:00 07:00 Intake Total 375 ml 535 ml Output Total 30 ml Balance 345 ml 535 ml IV Total 375 ml 535 ml Output Urine Total 30 ml # Voids 5 Laboratory Tests 08/14/19 04:55: Sodium Level 143, Potassium Level 3.3L, Chloride Level 104, Carbon Dioxide Level 31, Anion Gap 8, Blood Urea Nitrogen 40H, Creatinine 4.1H, Estimat Glomerular Filtration Rate 10.5, Glucose Level 113H, Uric Acid 7.2, Calcium Level 8.8, Phosphorus Level 4.6, Magnesium Level 2.0, Total Bilirubin 0.5, Aspartate Amino Transf (AST/SGOT) 27, Alanine Aminotransferase (ALT/SGPT) < 6L, Alkaline Phosphatase 120H, C-Reactive Protein, Quantitative 5.8H, Pro-B-Type Natriuretic Peptide > 28166X, Total Protein 5.7L, Albumin 1.5L, Globulin 4.2, Albumin/Globulin Ratio 0.4L 08/14/19 09:38: Arterial Blood pH [Pending], Arterial Blood Partial Pressure CO2 [Pending], Arterial Blood Partial Pressure O2 [Pending], Arterial Blood HCO3 [Pending], Arterial Blood Oxygen Saturation [Pending], Arterial Blood Base Excess [Pending] , Cuauhtemoc Test [Pending] Height (Feet): 5 Height (Inches): 4.00 Weight (Pounds): 97 Objective General Appearance: WD/WN, awake/moaning. on bipap Neck: supple Cardiovascular: normal rate Respiratory/Chest: rhonchi - bilaterally Abdomen: normal bowel sounds, non tender, soft, no organomegaly Edema: no edema noted Arm (L), no edema noted Arm (R), no edema noted Leg (L), no edema noted Leg (R), no edema noted Pedal (L), no edema noted Pedal (R), no edema noted Generalized Neurologic: disoriented, aphasia Nate Beltran MD Aug 14, 2019 12:05
--- NOTE | 2019-08-14 21:45 | Progress Note ---
DATE: 08/14/2019 CARDIOLOGY PROGRESS NOTE SUBJECTIVE: The patient is congested, remains on BiPAP support. Chest x-ray today revealed opacified left . PHYSICAL EXAMINATION: VITAL SIGNS: Blood pressure 150/71, pulse 74, respiratory rate 26, afebrile. LUNGS: Diminished breath sounds on the left. Scattered rhonchi. HEART: Regular rhythm and rate. Normal S1, S2. ABDOMEN: Soft. EXTREMITIES: Trace edema. LABORATORY AND DIAGNOSTIC DATA: Sodium 143, potassium 3.3, bicarb 31, BUN 40, creatinine 4.1. Pro-natriuretic peptide greater than 35,000. ABG 7.42, 46, 76. IMPRESSION: 1. Respiratory failure. 2. End-stage renal disease. 3. Left-sided 4. Recovered shock due to sepsis. 5. Asymptomatic bradycardia. 6. Non ST-elevation myocardial infarction. 7. Hypothyroidism, now on intravenous replacement therapy. PLAN: 1. Continue IV thyroid replacement. 2. BiPAP support. 3. Respiratory hygiene. 4. May need further intervention to the left base including thoracentesis which would require intubation and ventilation. 5. Avoid elevated potassium level. 6. Titrate antihypertensives but avoid tight blood pressure control in this setting. Abel Stubbs M.D. DR: Lety JOB#: [id number] CC:
[2019-08-15] VITALS (30 sets, daily range): BP systolic 131–177; BP diastolic 65–90
[2019-08-15] MEDS: Nitroglycerin 2% oint pkt TOPIC SCH ×3 (05:37→18:08)
[2019-08-15] MEDS: Pantoprazole Inj IVP SCH ×2 (08:10→20:58)
[2019-08-15] MEDS: Meropenem 500 MG in NS 55 ML IVPB SCH ×2 (08:10→20:57)
[2019-08-15 08:54] LABS: HEMATOCRIT 30.2 % (37.0-47.0); HEMOGLOBIN 10.5 G/DL (12.0-16.0); LYMPHOCYTES % (AUTO) 38.9 % (20.0-45.0); MEAN CORPUSCULAR VOLUME 87 FL (80-99); MONOCYTES % (AUTO) 8.3 % (1.0-10.0); NEUTROPHILS % (AUTO) 50.7 % (45.0-75.0); PLATELET COUNT 237 K/UL (150-450); RED BLOOD COUNT 3.45 M/UL (4.20-5.40); RED CELL DISTRIBUTION WIDTH 15.2 % (11.6-14.8); WHITE BLOOD COUNT 5.9 K/UL (4.8-10.8)
--- NOTE | 2019-08-15 08:54 | Critical Care Progress Note ---
Assessment/Plan Assessment/Plan respiratory failure hemoptysis hypoxemia chronic renal failure toxic met encephalopathy severe protein calorie malnutrition cachexia left lung whiteout PLAN care noted stat thoracentesis would need to d/w family may need bronchoscopy if no significant fluid noted antibiotics monitor imaging and repeat BIPAP for now avoid excessive suctioning with coagulopathy elevated head may need intubation; monitor ABG repeat today watch fluid status nutrition as able off load ICU care discussed critical at present requires ICU management feeds as able elevate head medications/laboratory data/nursing notes/ICU care reviewed in detail note reviewed and edited care discussed with RN and RT ICU time spent >35 minutes coordinating care Critical Care - Subjective Interval Events: doing poorly now with whiteout of left lung ROS Limited/Unobtainable: Yes Condition: critical EKG Rhythm: Sinus Rhythm I&O: Intake and Output 08/14/19 08/15/19 19:00 07:00 Intake Total 521.16646 ml 495 ml Output Total 310 ml Balance 211.84423 ml 495 ml IV Total 521.29712 ml 495 ml Output Urine Total 310 ml Critical Care - Objective Last 24 Hour Vital Signs Date Time Temp Pulse Resp B/P (MAP) Pulse Ox O2 Delivery O2 Flow Rate FiO2 08/15/19 08:21 175/86 08/15/19 08:20 51 20 155/76 (102) 99 08/15/19 08:00 57 08/15/19 08:00 Bi-pap Bi-pap Bi-pap 08/15/19 08:00 63 21 175/86 (115) 99 08/15/19 07:46 45 08/15/19 07:04 56 17 157/71 (99) 100 08/15/19 07:00 55 17 163/79 (107) 100 08/15/19 06:55 56 21 100 50 08/15/19 06:55 100 Bi-Pap 70 08/15/19 06:00 60 08/15/19 06:00 60 28 136/81 (99) 100 60 08/15/19 05:37 149/78 08/15/19 05:00 63 20 152/66 (94) 97 63 08/15/19 04:55 61 24 99 60 08/15/19 04:00 58 08/15/19 04:00 98.5 63 21 149/78 (101) 100 63 08/15/19 04:00 70 08/15/19 03:56 Bi-pap Bi-pap Bi-pap Bi-pap 08/15/19 03:42 165/74 08/15/19 03:13 79 22 100 70 08/15/19 03:00 65 25 148/83 (104) 100 65 08/15/19 02:00 65 21 167/69 (101) 100 65 08/15/19 01:24 76 20 100 80 08/15/19 01:00 57 34 143/67 (92) 100 57 08/15/19 00:00 80 08/15/19 00:00 61 08/15/19 00:00 Bi-pap Bi-pap Bi-pap Bi-pap 08/15/19 00:00 98.6 63 30 131/67 (88) 99 63 08/14/19 23:43 139/59 08/14/19 23:17 79 22 98 80 08/14/19 23:00 72 29 145/61 (89) 99 72 08/14/19 22:00 79 20 140/63 (88) 98 79 08/14/19 21:14 162/79 08/14/19 21:00 75 21 162/73 (102) 97 75 08/14/19 20:54 69 24 95 100 08/14/19 20:00 98.8 70 18 154/75 (101) 97 70 08/14/19 20:00 70 08/14/19 20:00 50 08/14/19 20:00 Bi-pap Bi-pap Bi-pap Bi-pap 08/14/19 19:28 100 Bi-Pap 70 08/14/19 19:28 71 23 97 50 08/14/19 19:00 73 39 159/84 (109) 98 08/14/19 18:00 74 26 150/71 (97) 98 08/14/19 17:49 143/71 08/14/19 17:20 62 18 98 50 08/14/19 17:00 61 22 131/69 (89) 96 08/14/19 16:00 98.3 81 24 143/71 (95) 97 08/14/19 16:00 81 08/14/19 16:00 Bi-pap Bi-pap Bi-pap 08/14/19 15:27 61 20 98 50 08/14/19 15:00 61 32 138/71 (93) 97 08/14/19 14:00 54 17 144/68 (93) 97 08/14/19 13:02 59 17 98 50 08/14/19 13:00 50 08/14/19 13:00 55 20 153/68 (96) 99 08/14/19 12:00 Bi-pap Bi-pap Bi-pap 08/14/19 12:00 95.2 63 32 151/80 (103) 97 08/14/19 12:00 58 08/14/19 11:21 153/67 08/14/19 11:00 60 31 153/67 (95) 98 08/14/19 10:00 49 13 159/64 (95) 98 08/14/19 09:19 60 08/14/19 09:19 49 20 99 60 08/14/19 09:00 51 19 150/66 (94) 100 Labs: Labs Test 08/13/19 05:12 08/14/19 02:55 08/14/19 04:55 08/14/19 09:38 White Blood Count 6.4 K/UL (4.8-10.8) Red Blood Count 3.47 M/UL (4.20-5.40) Hemoglobin 10.4 G/DL (12.0-16.0) Hematocrit 30.3 % (37.0-47.0) Mean Corpuscular Volume 87 FL (80-99) Mean Corpuscular Hemoglobin 29.9 PG (27.0-31.0) Mean Corpuscular Hemoglobin Concent 34.3 G/DL (32.0-36.0) Red Cell Distribution Width 15.0 % (11.6-14.8) Platelet Count 83 K/UL (150-450) Mean Platelet Volume 8.5 FL (6.5-10.1) Neutrophils (%) (Auto) % (45.0-75.0) Lymphocytes (%) (Auto) % (20.0-45.0) Monocytes (%) (Auto) % (1.0-10.0) Eosinophils (%) (Auto) % (0.0-3.0) Basophils (%) (Auto) % (0.0-2.0) Differential Total Cells Counted 100 Neutrophils % (Manual) 49 % (45-75) Lymphocytes % (Manual) 40 % (20-45) Monocytes % (Manual) 9 % (1-10) Eosinophils % (Manual) 1 % (0-3) Basophils % (Manual) 1 % (0-2) Band Neutrophils 0 % (0-8) Platelet Estimate Decreased Platelet Morphology Normal Hypochromasia 1+ Anisocytosis 1+ Sodium Level 142 MMOL/L (136-145) 143 MMOL/L (136-145) Potassium Level 3.3 MMOL/L (3.5-5.1) 3.3 MMOL/L (3.5-5.1) Chloride Level 103 MMOL/L (98-107) 104 MMOL/L (98-107) Carbon Dioxide Level 31 MMOL/L (21-32) 31 MMOL/L (21-32) Anion Gap 8 mmol/L (5-15) 8 mmol/L (5-15) Blood Urea Nitrogen 36 mg/dL (7-18) 40 mg/dL (7-18) Creatinine 3.7 MG/DL (0.55-1.30) 4.1 MG/DL (0.55-1.30) Estimat Glomerular Filtration Rate 11.8 mL/min (>60) 10.5 mL/min (>60) Glucose Level 101 MG/DL (74-106) 113 MG/DL (74-106) Calcium Level 8.7 MG/DL (8.5-10.1) 8.8 MG/DL (8.5-10.1) Phosphorus Level 4.1 MG/DL (2.5-4.9) 4.6 MG/DL (2.5-4.9) Magnesium Level 2.1 MG/DL (1.8-2.4) 2.0 MG/DL (1.8-2.4) Total Bilirubin 0.5 MG/DL (0.2-1.0) 0.5 MG/DL (0.2-1.0) Aspartate Amino Transf (AST/SGOT) 26 U/L (15-37) 27 U/L (15-37) Alanine Aminotransferase (ALT/SGPT) < 6 U/L (12-78) < 6 U/L (12-78) Alkaline Phosphatase 121 U/L (46-116) 120 U/L (46-116) Troponin I 0.557 ng/mL (0.000-0.056) C-Reactive Protein, Quantitative 5.8 mg/dL (0.00-0.90) 5.8 mg/dL (0.00-0.90) Pro-B-Type Natriuretic Peptide > 08047 pg/mL (0-125) > 11296 pg/mL (0-125) Total Protein 5.5 G/DL (6.4-8.2) 5.7 G/DL (6.4-8.2) Albumin 1.4 G/DL (3.4-5.0) 1.5 G/DL (3.4-5.0) Globulin 4.1 g/dL 4.2 g/dL Albumin/Globulin Ratio 0.3 (1.0-2.7) 0.4 (1.0-2.7) Thyroid Stimulating Hormone (TSH) 12.263 uiU/mL (0.358-3.740) Free Thyroxine 1.22 NG/DL (0.76-1.46) Free Triiodothyronine 0.8 pg/mL (2.3-4.2) Cortisol 15.1 UG/DL Uric Acid 7.2 MG/DL (2.6-7.2) Arterial Blood pH 7.422 (7.350-7.450) Arterial Blood Partial Pressure CO2 46.0 mmHg (35.0-45.0) Arterial Blood Partial Pressure O2 76.5 mmHg (75.0-100.0) Arterial Blood HCO3 29.3 mmol/L (22.0-26.0) Arterial Blood Oxygen Saturation 95.0 % (95-100) Arterial Blood Base Excess 4.2 (-2-2) Cuauhtemoc Test Positive Test 08/15/19 08:05 Objective: WDWN NAD reduced breath sounds left >>right without rhonchi or wheeze [id number] without MRG NABS nontender no HSM no CCE contractures on BIPAP poorly responsive nonfocal reviewed and edited Micro: Microbiology Date/Time Source Procedure Growth Status 08/14/19 05:10 Blood Blood Culture - Preliminary NO GROWTH AFTER 24 HOURS Resulted 08/14/19 04:55 Blood Blood Culture - Preliminary NO GROWTH AFTER 24 HOURS Resulted Accucheck: 193 Malcolm Cruz MD Aug 15, 2019 08:54
[2019-08-15] MEDS: D5NS 1,000 ML IV SCH ×2 (09:46→10:25)
--- NOTE | 2019-08-15 10:01 | Nephrology Progress Note ---
Assessment/Plan Problem List: (1) ESRD (end stage renal disease) on dialysis (2) Malnutrition (3) Anemia in CKD (chronic kidney disease) (4) Hypotension (5) Thrombocytopenia (6) Sepsis Assessment: klebsiella in blood Assessment -Early sepsis with shock. -Healthcare-associated pneumonia. -Severe protein-calorie malnutrition. -Thrombocytopenia. - End-stage renal disease. - History of hypertension. - Bradycardia. - HypoThyroid Plan As per my assessment patient requires urgent dialysis and insertion of permacath or any other dialysis catheter. This is if the family cannot be reached for consent. Permacath was removed on August 12 Dialysis 08/11 Transfusion as needed Patient had hematemesis meds IV as possible Surveillance blood cultures tomorrow Plan to put the permacath back in on Thursday if cultures are negative keep BP and BS in check Inflammatory markers per orders Subjective ROS Limited/Unobtainable: Yes Objective Objective Last 24 Hour Vital Signs Date Time Temp Pulse Resp B/P (MAP) Pulse Ox O2 Delivery O2 Flow Rate FiO2 08/15/19 09:26 52 21 99 35 08/15/19 09:21 35 08/15/19 09:00 60 20 153/68 (96) 98 08/15/19 08:21 175/86 08/15/19 08:20 51 20 155/76 (102) 99 08/15/19 08:00 57 08/15/19 08:00 Bi-pap Bi-pap Bi-pap 08/15/19 08:00 63 21 175/86 (115) 99 08/15/19 07:46 45 08/15/19 07:04 56 17 157/71 (99) 100 08/15/19 07:00 55 17 163/79 (107) 100 08/15/19 06:55 56 21 100 50 08/15/19 06:55 100 Bi-Pap 70 08/15/19 06:00 60 08/15/19 06:00 60 28 136/81 (99) 100 60 08/15/19 05:37 149/78 08/15/19 05:00 63 20 152/66 (94) 97 63 08/15/19 04:55 61 24 99 60 08/15/19 04:00 58 08/15/19 04:00 98.5 63 21 149/78 (101) 100 63 08/15/19 04:00 70 08/15/19 03:56 Bi-pap Bi-pap Bi-pap Bi-pap 08/15/19 03:42 165/74 08/15/19 03:13 79 22 100 70 08/15/19 03:00 65 25 148/83 (104) 100 65 08/15/19 02:00 65 21 167/69 (101) 100 65 08/15/19 01:24 76 20 100 80 08/15/19 01:00 57 34 143/67 (92) 100 57 08/15/19 00:00 80 08/15/19 00:00 61 08/15/19 00:00 Bi-pap Bi-pap Bi-pap Bi-pap 08/15/19 00:00 98.6 63 30 131/67 (88) 99 63 08/14/19 23:43 139/59 08/14/19 23:17 79 22 98 80 08/14/19 23:00 72 29 145/61 (89) 99 72 08/14/19 22:00 79 20 140/63 (88) 98 79 08/14/19 21:14 162/79 08/14/19 21:00 75 21 162/73 (102) 97 75 08/14/19 20:54 69 24 95 100 08/14/19 20:00 98.8 70 18 154/75 (101) 97 70 08/14/19 20:00 70 08/14/19 20:00 50 08/14/19 20:00 Bi-pap Bi-pap Bi-pap Bi-pap 08/14/19 19:28 100 Bi-Pap 70 08/14/19 19:28 71 23 97 50 08/14/19 19:00 73 39 159/84 (109) 98 08/14/19 18:00 74 26 150/71 (97) 98 08/14/19 17:49 143/71 08/14/19 17:20 62 18 98 50 08/14/19 17:00 61 22 131/69 (89) 96 08/14/19 16:00 98.3 81 24 143/71 (95) 97 08/14/19 16:00 81 08/14/19 16:00 Bi-pap Bi-pap Bi-pap 08/14/19 15:27 61 20 98 50 08/14/19 15:00 61 32 138/71 (93) 97 08/14/19 14:00 54 17 144/68 (93) 97 08/14/19 13:02 59 17 98 50 08/14/19 13:00 50 08/14/19 13:00 55 20 153/68 (96) 99 08/14/19 12:00 Bi-pap Bi-pap Bi-pap 08/14/19 12:00 95.2 63 32 151/80 (103) 97 08/14/19 12:00 58 08/14/19 11:21 153/67 08/14/19 11:00 60 31 153/67 (95) 98 Intake and Output 08/14/19 08/15/19 19:00 07:00 Intake Total 521.30095 ml 535 ml Output Total 310 ml Balance 211.39417 ml 535 ml IV Total 521.74846 ml 535 ml Output Urine Total 310 ml Laboratory Tests 08/15/19 08:05: White Blood Count 5.9, Red Blood Count 3.45L, Hemoglobin 10.5L, Hematocrit 30.2L , Mean Corpuscular Volume 87, Mean Corpuscular Hemoglobin 30.4, Mean Corpuscular Hemoglobin Concent 34.8, Red Cell Distribution Width 15.2H, Platelet Count 237, Mean Platelet Volume 7.8, Neutrophils (%) (Auto) 50.7, Lymphocytes (%) (Auto) 38.9, Monocytes (%) (Auto) 8.3, Eosinophils (%) (Auto) 1.0, Basophils (%) (Auto) 1.0 Height (Feet): 5 Height (Inches): 4.00 Weight (Pounds): 99 General Appearance: no apparent distress, lethargic EENT: other - BIPAP Respiratory/Chest: decreased breath sounds Abdomen: soft Extremities: other - edematous Objective no change William Blackwood MD Aug 15, 2019 10:01
--- NOTE | 2019-08-15 10:24 | General Progress Note ---
Assessment/Plan Problem List: (1) Failure to thrive (0-17) ICD Codes: R62.51 - Failure to thrive (0-17) SNOMED: 499493306 (2) Hypertensive kidney disease ICD Codes: I12.9 - Hypertensive chronic kidney disease with stage 1 through stage 4 chronic kidney disease, or unspecified chronic kidney disease SNOMED: 29027447 (3) Pneumonia ICD Codes: J18.9 - Pneumonia, unspecified organism SNOMED: 130624794 Qualifiers: Qualified Codes: J18.9 - Pneumonia, unspecified organism (4) ESRD (end stage renal disease) ICD Codes: N18.6 - End stage renal disease SNOMED: 72504288 (5) Septic arthritis ICD Codes: M00.9 - Pyogenic arthritis, unspecified SNOMED: 248449096 (6) Thrombocytopenia ICD Codes: D69.6 - Thrombocytopenia, unspecified SNOMED: 976967683 (7) Hypotension ICD Codes: I95.9 - Hypotension, unspecified SNOMED: 27169635 Qualifiers: Qualified Codes: I95.3 - Hypotension of hemodialysis (8) Malnutrition ICD Codes: E46 - Unspecified protein-calorie malnutrition SNOMED: 41171362 Status: stable, not improved, unchanged, deteriorating Assessment/Plan: thyroid replacement cont icu care o2/bipap prn resp rx/suctioning transfuse plts and rbcs as needed iv PPI iv abx replace perm cath today bailey for urinary retention iv bp rx eventually needs GT when resp status stable- will d/w pulm and ID critical and guarded gt when stable pt needs emergent perm cath placement for HD. message left with family but no call back yet. plan to replace catheter d/w family this weekend and they wanted to proceed with replacement Subjective ROS Limited/Unobtainable: Yes Constitutional: Reports: malaise, weakness HEENT: Reports: no symptoms Cardiovascular: Reports: no symptoms Respiratory: Reports: shortness of breath Gastrointestinal/Abdominal: Reports: difficulty swallowing Genitourinary: Reports: no symptoms Neurologic/Psychiatric: Reports: pre-existing deficit Endocrine: Reports: no symptoms Hematologic/Lymphatic: Reports: anemia Allergies: Coded Allergies: VANCOMYCIN (Unverified Allergy, Unknown, 08/02/19) All Systems: reviewed and negative except above Subjective remains bradycardic. 50s. on bipap. no hemoptysis. no fevers. d/w night rn. no events. ;labs reviewed. no fevers. still unable top take po. lethargic Objective Last 24 Hour Vital Signs Date Time Temp Pulse Resp B/P (MAP) Pulse Ox O2 Delivery O2 Flow Rate FiO2 08/15/19 09:26 52 21 99 35 08/15/19 09:21 35 08/15/19 09:00 60 20 153/68 (96) 98 08/15/19 08:21 175/86 08/15/19 08:20 51 20 155/76 (102) 99 08/15/19 08:00 57 08/15/19 08:00 Bi-pap Bi-pap Bi-pap 08/15/19 08:00 63 21 175/86 (115) 99 08/15/19 07:46 45 08/15/19 07:04 56 17 157/71 (99) 100 08/15/19 07:00 55 17 163/79 (107) 100 08/15/19 06:55 56 21 100 50 08/15/19 06:55 100 Bi-Pap 70 08/15/19 06:00 60 08/15/19 06:00 60 28 136/81 (99) 100 60 08/15/19 05:37 149/78 08/15/19 05:00 63 20 152/66 (94) 97 63 08/15/19 04:55 61 24 99 60 08/15/19 04:00 58 08/15/19 04:00 98.5 63 21 149/78 (101) 100 63 08/15/19 04:00 70 08/15/19 03:56 Bi-pap Bi-pap Bi-pap Bi-pap 08/15/19 03:42 165/74 08/15/19 03:13 79 22 100 70 08/15/19 03:00 65 25 148/83 (104) 100 65 08/15/19 02:00 65 21 167/69 (101) 100 65 08/15/19 01:24 76 20 100 80 08/15/19 01:00 57 34 143/67 (92) 100 57 08/15/19 00:00 80 08/15/19 00:00 61 08/15/19 00:00 Bi-pap Bi-pap Bi-pap Bi-pap 08/15/19 00:00 98.6 63 30 131/67 (88) 99 63 08/14/19 23:43 139/59 08/14/19 23:17 79 22 98 80 08/14/19 23:00 72 29 145/61 (89) 99 72 08/14/19 22:00 79 20 140/63 (88) 98 79 08/14/19 21:14 162/79 08/14/19 21:00 75 21 162/73 (102) 97 75 08/14/19 20:54 69 24 95 100 08/14/19 20:00 98.8 70 18 154/75 (101) 97 70 08/14/19 20:00 70 08/14/19 20:00 50 08/14/19 20:00 Bi-pap Bi-pap Bi-pap Bi-pap 08/14/19 19:28 100 Bi-Pap 70 08/14/19 19:28 71 23 97 50 08/14/19 19:00 73 39 159/84 (109) 98 08/14/19 18:00 74 26 150/71 (97) 98 08/14/19 17:49 143/71 08/14/19 17:20 62 18 98 50 08/14/19 17:00 61 22 131/69 (89) 96 08/14/19 16:00 98.3 81 24 143/71 (95) 97 08/14/19 16:00 81 08/14/19 16:00 Bi-pap Bi-pap Bi-pap 08/14/19 15:27 61 20 98 50 08/14/19 15:00 61 32 138/71 (93) 97 08/14/19 14:00 54 17 144/68 (93) 97 08/14/19 13:02 59 17 98 50 08/14/19 13:00 50 08/14/19 13:00 55 20 153/68 (96) 99 08/14/19 12:00 Bi-pap Bi-pap Bi-pap 08/14/19 12:00 95.2 63 32 151/80 (103) 97 08/14/19 12:00 58 08/14/19 11:21 153/67 08/14/19 11:00 60 31 153/67 (95) 98 Intake and Output 08/14/19 08/15/19 19:00 07:00 Intake Total 521.44840 ml 535 ml Output Total 310 ml Balance 211.62652 ml 535 ml IV Total 521.79453 ml 535 ml Output Urine Total 310 ml Laboratory Tests 08/15/19 08:05: White Blood Count 5.9, Red Blood Count 3.45L, Hemoglobin 10.5L, Hematocrit 30.2L , Mean Corpuscular Volume 87, Mean Corpuscular Hemoglobin 30.4, Mean Corpuscular Hemoglobin Concent 34.8, Red Cell Distribution Width 15.2H, Platelet Count 237, Mean Platelet Volume 7.8, Neutrophils (%) (Auto) 50.7, Lymphocytes (%) (Auto) 38.9, Monocytes (%) (Auto) 8.3, Eosinophils (%) (Auto) 1.0, Basophils (%) (Auto) 1.0 Height (Feet): 5 Height (Inches): 4.00 Weight (Pounds): 99 Objective General Appearance: WD/WN, awake/moaning. on bipap Neck: supple Cardiovascular: normal rate Respiratory/Chest: rhonchi - bilaterally Abdomen: normal bowel sounds, non tender, soft, no organomegaly Edema: no edema noted Arm (L), no edema noted Arm (R), no edema noted Leg (L), no edema noted Leg (R), no edema noted Pedal (L), no edema noted Pedal (R), no edema noted Generalized Neurologic: disoriented, aphasia Nate Beltran MD Aug 15, 2019 10:24
--- NOTE | 2019-08-15 11:04 | Infectious Diseases Prog Note ---
Assessment/Plan Assessment/Plan antibiotics : meropenem A 1. klebsiella sepsis s/p catheter removal 2. e.coli UTI 3. right shoulder septic arthritis with staph aureus 4. renal failure 5. thrombocytopenia improving 6. diabetes mellitus 7. hypertension 8. GI bleeding P 1. continue meropenem 2 more days 2. will follow up cultures Subjective ROS Limited/Unobtainable: Yes Allergies: Coded Allergies: VANCOMYCIN (Unverified Allergy, Unknown, 08/02/19) Objective Vital Signs Last 24 Hour Vital Signs Date Time Temp Pulse Resp B/P (MAP) Pulse Ox O2 Delivery O2 Flow Rate FiO2 08/15/19 10:49 164/79 08/15/19 10:46 54 19 98 35 08/15/19 10:00 59 16 157/68 (97) 99 08/15/19 09:26 52 21 99 35 08/15/19 09:21 35 08/15/19 09:00 60 20 153/68 (96) 98 08/15/19 08:21 175/86 08/15/19 08:20 51 20 155/76 (102) 99 08/15/19 08:00 57 08/15/19 08:00 Bi-pap Bi-pap Bi-pap 08/15/19 08:00 63 21 175/86 (115) 99 08/15/19 07:46 45 08/15/19 07:04 56 17 157/71 (99) 100 08/15/19 07:00 55 17 163/79 (107) 100 08/15/19 06:55 56 21 100 50 08/15/19 06:55 100 Bi-Pap 70 08/15/19 06:00 60 08/15/19 06:00 60 28 136/81 (99) 100 60 08/15/19 05:37 149/78 08/15/19 05:00 63 20 152/66 (94) 97 63 08/15/19 04:55 61 24 99 60 08/15/19 04:00 58 08/15/19 04:00 98.5 63 21 149/78 (101) 100 63 08/15/19 04:00 70 08/15/19 03:56 Bi-pap Bi-pap Bi-pap Bi-pap 08/15/19 03:42 165/74 08/15/19 03:13 79 22 100 70 08/15/19 03:00 65 25 148/83 (104) 100 65 08/15/19 02:00 65 21 167/69 (101) 100 65 08/15/19 01:24 76 20 100 80 08/15/19 01:00 57 34 143/67 (92) 100 57 08/15/19 00:00 80 08/15/19 00:00 61 08/15/19 00:00 Bi-pap Bi-pap Bi-pap Bi-pap 08/15/19 00:00 98.6 63 30 131/67 (88) 99 63 08/14/19 23:43 139/59 08/14/19 23:17 79 22 98 80 08/14/19 23:00 72 29 145/61 (89) 99 72 08/14/19 22:00 79 20 140/63 (88) 98 79 08/14/19 21:14 162/79 08/14/19 21:00 75 21 162/73 (102) 97 75 08/14/19 20:54 69 24 95 100 08/14/19 20:00 98.8 70 18 154/75 (101) 97 70 08/14/19 20:00 70 08/14/19 20:00 50 08/14/19 20:00 Bi-pap Bi-pap Bi-pap Bi-pap 08/14/19 19:28 100 Bi-Pap 70 08/14/19 19:28 71 23 97 50 08/14/19 19:00 73 39 159/84 (109) 98 08/14/19 18:00 74 26 150/71 (97) 98 08/14/19 17:49 143/71 08/14/19 17:20 62 18 98 50 08/14/19 17:00 61 22 131/69 (89) 96 08/14/19 16:00 98.3 81 24 143/71 (95) 97 08/14/19 16:00 81 08/14/19 16:00 Bi-pap Bi-pap Bi-pap 08/14/19 15:27 61 20 98 50 08/14/19 15:00 61 32 138/71 (93) 97 08/14/19 14:00 54 17 144/68 (93) 97 08/14/19 13:02 59 17 98 50 08/14/19 13:00 50 08/14/19 13:00 55 20 153/68 (96) 99 08/14/19 12:00 Bi-pap Bi-pap Bi-pap 08/14/19 12:00 95.2 63 32 151/80 (103) 97 08/14/19 12:00 58 08/14/19 11:21 153/67 Height (Feet): 5 Height (Inches): 4.00 Weight (Pounds): 99 HEENT: other - on bipap Respiratory/Chest: lungs clear Cardiovascular: normal rate, regular rhythm, no gallop/murmur Abdomen: soft, non tender Extremities: no edema, other - right shoulder wound clean Microbiology Date/Time Source Procedure Growth Status 08/14/19 05:10 Blood Blood Culture - Preliminary NO GROWTH AFTER 24 HOURS Resulted 08/14/19 04:55 Blood Blood Culture - Preliminary NO GROWTH AFTER 24 HOURS Resulted Laboratory Tests Test 08/15/19 08:05 White Blood Count 5.9 K/UL (4.8-10.8) Red Blood Count 3.45 M/UL (4.20-5.40) L Hemoglobin 10.5 G/DL (12.0-16.0) L Hematocrit 30.2 % (37.0-47.0) L Mean Corpuscular Volume 87 FL (80-99) Mean Corpuscular Hemoglobin 30.4 PG (27.0-31.0) Mean Corpuscular Hemoglobin Concent 34.8 G/DL (32.0-36.0) Red Cell Distribution Width 15.2 % (11.6-14.8) H Platelet Count 237 K/UL (150-450) Mean Platelet Volume 7.8 FL (6.5-10.1) Neutrophils (%) (Auto) 50.7 % (45.0-75.0) Lymphocytes (%) (Auto) 38.9 % (20.0-45.0) Monocytes (%) (Auto) 8.3 % (1.0-10.0) Eosinophils (%) (Auto) 1.0 % (0.0-3.0) Basophils (%) (Auto) 1.0 % (0.0-2.0) Current Medications Medications (Trade) Dose Ordered Sig/Javier Route PRN Reason Start Time Stop Time Status Last Admin Dose Admin Atropine Sulfate (Atropine) 1 mg Q4H PRN IVP Per rx protocol 08/13/19 08:30 09/12/19 08:29 Dextrose (Dextrose 50%) 50 ml Q30M PRN IV Hypoglycemia 08/11/19 10:30 09/04/19 17:44 08/15/19 05:58 Dextrose/Sodium Chloride 1,000 ml @ 20 mls/hr Q24H IV 08/15/19 10:30 09/12/19 10:29 08/15/19 10:25 Diphenhydramine HCl (Benadryl) 50 mg Q4H PRN IVP Itching 08/09/19 14:30 09/08/19 14:29 08/13/19 02:39 Epoetin Thomas (Epoetin Thomas(ESRD on dialysis)) 4,000 unit SUBQ 08/12/19 21:00 09/11/19 20:59 08/12/19 20:35 Hydralazine HCl (Apresoline) 25 mg Q6H PRN IV For High Blood Pressure 08/14/19 01:45 09/13/19 01:44 08/15/19 10:49 Levothyroxine Sodium (Synthroid) 75 mcg DAILY IV 08/13/19 09:00 09/12/19 08:59 08/15/19 09:06 Meropenem 500 mg/ Sodium Chloride 55 ml @ 110 mls/hr EVERY 12 HOURS IVPB 08/13/19 21:00 08/18/19 20:59 08/15/19 08:10 Metoclopramide HCl (Reglan) 5 mg Q8H PRN IVP Nausea & Vomiting 08/09/19 12:39 09/08/19 12:38 Nitroglycerin (Nitro-Bid) 1 inch Q6HR TOPIC 08/09/19 12:39 09/08/19 12:38 08/15/19 05:37 Pantoprazole (Protonix) 40 mg EVERY 12 HOURS IVP 08/09/19 21:00 09/08/19 10:44 08/15/19 08:10 Melissa Solares MD Aug 15, 2019 11:04
--- NOTE | 2019-08-15 11:45 | Surgery Progress Note ---
Surgery Progress Note Subjective Additional Comments declining needs HD cannot contact family for temp cath placement labs noted ill appearing on positive pressure support will likely need intubation soon Objective Last 24 Hour Vital Signs Date Time Temp Pulse Resp B/P (MAP) Pulse Ox O2 Delivery O2 Flow Rate FiO2 08/15/19 11:11 170/70 08/15/19 11:10 55 20 159/68 (98) 99 08/15/19 11:00 73 28 170/70 (103) 97 08/15/19 10:49 164/79 08/15/19 10:46 54 19 98 35 08/15/19 10:00 59 16 157/68 (97) 99 08/15/19 09:26 52 21 99 35 08/15/19 09:21 35 08/15/19 09:00 60 20 153/68 (96) 98 08/15/19 08:21 175/86 08/15/19 08:20 51 20 155/76 (102) 99 08/15/19 08:00 57 08/15/19 08:00 Bi-pap Bi-pap Bi-pap 08/15/19 08:00 63 21 175/86 (115) 99 08/15/19 07:46 45 08/15/19 07:04 56 17 157/71 (99) 100 08/15/19 07:00 55 17 163/79 (107) 100 08/15/19 06:55 56 21 100 50 08/15/19 06:55 100 Bi-Pap 70 08/15/19 06:00 60 08/15/19 06:00 60 28 136/81 (99) 100 60 08/15/19 05:37 149/78 08/15/19 05:00 63 20 152/66 (94) 97 63 08/15/19 04:55 61 24 99 60 08/15/19 04:00 58 08/15/19 04:00 98.5 63 21 149/78 (101) 100 63 08/15/19 04:00 70 08/15/19 03:56 Bi-pap Bi-pap Bi-pap Bi-pap 08/15/19 03:42 165/74 08/15/19 03:13 79 22 100 70 08/15/19 03:00 65 25 148/83 (104) 100 65 08/15/19 02:00 65 21 167/69 (101) 100 65 08/15/19 01:24 76 20 100 80 08/15/19 01:00 57 34 143/67 (92) 100 57 08/15/19 00:00 80 08/15/19 00:00 61 08/15/19 00:00 Bi-pap Bi-pap Bi-pap Bi-pap 08/15/19 00:00 98.6 63 30 131/67 (88) 99 63 08/14/19 23:43 139/59 08/14/19 23:17 79 22 98 80 08/14/19 23:00 72 29 145/61 (89) 99 72 08/14/19 22:00 79 20 140/63 (88) 98 79 08/14/19 21:14 162/79 08/14/19 21:00 75 21 162/73 (102) 97 75 08/14/19 20:54 69 24 95 100 08/14/19 20:00 98.8 70 18 154/75 (101) 97 70 08/14/19 20:00 70 08/14/19 20:00 50 08/14/19 20:00 Bi-pap Bi-pap Bi-pap Bi-pap 08/14/19 19:28 100 Bi-Pap 70 08/14/19 19:28 71 23 97 50 08/14/19 19:00 73 39 159/84 (109) 98 08/14/19 18:00 74 26 150/71 (97) 98 08/14/19 17:49 143/71 08/14/19 17:20 62 18 98 50 08/14/19 17:00 61 22 131/69 (89) 96 08/14/19 16:00 98.3 81 24 143/71 (95) 97 08/14/19 16:00 81 08/14/19 16:00 Bi-pap Bi-pap Bi-pap 08/14/19 15:27 61 20 98 50 08/14/19 15:00 61 32 138/71 (93) 97 08/14/19 14:00 54 17 144/68 (93) 97 08/14/19 13:02 59 17 98 50 08/14/19 13:00 50 08/14/19 13:00 55 20 153/68 (96) 99 08/14/19 12:00 Bi-pap Bi-pap Bi-pap 08/14/19 12:00 95.2 63 32 151/80 (103) 97 08/14/19 12:00 58 I&O Intake and Output 08/14/19 08/15/19 19:00 07:00 Intake Total 521.48451 ml 535 ml Output Total 310 ml Balance 211.10792 ml 535 ml IV Total 521.91782 ml 535 ml Output Urine Total 310 ml Dressing: other Wound: other Drains: other Cardiovascular: RSR, other Respiratory: decreased breath sounds Abdomen: soft, present bowel sounds Extremities: no tenderness, no cyanosis, other Laboratory Tests Test 08/15/19 08:05 White Blood Count 5.9 K/UL (4.8-10.8) Red Blood Count 3.45 M/UL (4.20-5.40) L Hemoglobin 10.5 G/DL (12.0-16.0) L Hematocrit 30.2 % (37.0-47.0) L Mean Corpuscular Volume 87 FL (80-99) Mean Corpuscular Hemoglobin 30.4 PG (27.0-31.0) Mean Corpuscular Hemoglobin Concent 34.8 G/DL (32.0-36.0) Red Cell Distribution Width 15.2 % (11.6-14.8) H Platelet Count 237 K/UL (150-450) Mean Platelet Volume 7.8 FL (6.5-10.1) Neutrophils (%) (Auto) 50.7 % (45.0-75.0) Lymphocytes (%) (Auto) 38.9 % (20.0-45.0) Monocytes (%) (Auto) 8.3 % (1.0-10.0) Eosinophils (%) (Auto) 1.0 % (0.0-3.0) Basophils (%) (Auto) 1.0 % (0.0-2.0) Plan Problems: (1) Malnutrition Assessment & Plan: DAILY ESTIMATED NEEDS: Needs based on ESRD+ HD, underweight, wound/ 39.5kg 35-40 kcals/kg 9350-9550 total kcals 1.25-1.8 g protein/kg 49-71 g total protein 20-22 mL/kg 790-869 total fluid mLs NUTRITION DIAGNOSIS: * Increased kcal and protein needs r/t underweight status, HD needs, wuond healing as evidenced by pt is underweight per guidelines, ESRD, on HD, admitted non-blanching erythema wounds @ BL heels and sacrum * Swallowing difficulty R/T dysphagia as evidenced by BURN TABLE OPERATOR recommends temporary nonoral feeding at this time, s/p NGT insertion, on NGT feeding-> now s/p self removal, NPO. CURRENT TF:NPO PO DIET RECOMMENDATIONS: WHEN SAFE FOR ORAL DIET -> renal/ texture per BURN TABLE OPERATOR ENTERAL NUTRITION RECOMMENDATIONS: W/ GI access: Nepro @ 35ml/hr x 22 hrs to provide 770ml, 1386kcal, 62g prot, 560ml free water * W/ GI access, resume TF on Nepro * Initiate Nepro @ 15ml/hr x 6 hrs, advance 10ml q 4-6 hrs as tolerated to goal rate. * Hold 1 hour before and after Synthroid med * HOB over 30 degrees/ water flush per MD. ADDITIONAL RECOMMENDATIONS: 1) Calibrated bed scale wt for accurate CBW -> daily wt monitoring Per HD record: dry wt on 07/30=39.5kg (87lbs) 2) Wound care: (W/ GI access) add Nephorivte x 1 + Balta BID 3) Monitor NPO status: without GI access at this time, s/p pulling out NGT 4) Monitor for hypoglycemia while NPO 5) Monitor for continuity of HD (2) Septic arthritis Assessment & Plan: Pt presented on admission with generalized scaly rash . pt noted to be restless and scratching at skin. Bleeding from oral mucosa noted. Joint deformity noted to R shoulder. Surgical incision approximated with 11 sutures. Erythema but no exudate,or elevation in skin temp at site of incision. Historical incision R hip that is tunneled.Small amt seropurulent exudate noted. Periwound is erythematous,but no elevation in skin temp noted. No odor noted. Non-blanching erythema noted to sacrum. Perianal area is erythematous and excoriated. L heel is boggy with non-blanching erythema. R heel is soft with non-blanching erythema. No evidence of skin breakdown to all other bony prominences. Tx.plan: Cover R shoulder with Drsg and change daily and prn. Cleanse R hip wound with Saline. Apply Therahoney.Apply Cavilon Skin Barrier periwound. Cover with Optifoam drsg. Change every 3 days and prn. Apply Moisture Barrier Paste to perianal area and buttocks. Cover Sacrum with Optifoam drsg. Change every 3 days and prn. Apply Cavilon Skin Barrier to both heels. Cover each heel with Optifoam drsg. Change every 7 days and prn. APM/ELVIA Mattress overlay. Reposition at least every 2hours or as tolerated. Off-load heels with pillow. HD cath necessary HD as renal likely will need intubation (3) Wound, open, hip or thigh with complication Assessment & Plan: slow healing will need nutritional optimization difficult ng tube peg when stable sutures removed from right shoulder comfortable (4) Abscess of right hip (5) possible septic arthritis Camilo James Aug 15, 2019 11:45
--- NOTE | 2019-08-15 12:17 | Diagnostic Imaging Report ---
Indication:pleural effusion Technique: Grayscale and duplex Doppler imaging of the chest performed. Comparison: None Findings: Were asked to perform a thoracentesis on the left. The patient was contracted in a position. We attempted to obtain the best percutaneous window possible. With the patient in a decubitus position ultrasound was performed demonstrating a small pleural effusion with a very small window. Impression: Small pleural effusion, not enough to warrant thoracentesis on a therapeutic basis. Moreover, the percutaneous window to obtain the thoracentesis was very small. Thoracentesis would be challenging in this setting with increased risks of pneumothorax and hemothorax.
--- NOTE | 2019-08-15 14:30 | Operative Note - PDOC ---
Operative Note Operative Note Date of Operation/Procedure: Aug 15, 2019 Pre-op Diagnosis: renal insufficiency requiring HD Procedure: Right Femoral Temporary Hemodialysis catheter Insertion Post-op Diagnosis: same Post-op Diagnosis: same as pre-op Surgeon: Raza James MD Anesthesia: local Specimen: none Complications: none Condition: stable Fluids: none Estimated Blood Loss: minimal Drains: none Implant(s) used?: No Indications for Procedure 79F with worsening renal insufficiency requiring urgent HD. currently no access for HD. temp line indicated and recommended. unable to have perm a cath as unstable on bipap for radiology. temp line consent obtained from daughter. line to be placed at bedside Description of Procedure patient made comfortable at bedside. right groin prepped and draped in standard surgical fashion. anatomy identified and right femoral vein cannulated on first stick without difficulty. good venous flow noted. guidewire placed and needle removed. small skin incision made around wire and dilators used. 20cm 12.5f temp HD catheter placed over wire without difficulty. wire removed and discarded. line sutured in place and dressings applied. both ports flushed and aspirated without issue. patient tolerated well. local used 1% lido for patients comfort. thank you Camilo James Aug 15, 2019 14:30
--- NOTE | 2019-08-15 18:45 | Hematology/Onc Progress Note ---
Assessment/Plan Assessment/Plan # Thrombocytopenia - potential causes multifactorial, evaluate liver and viral etiologies to begin, in this case due to sepsis with septic shock also with cirrhosis and liver disease --> Hep panel and HIV ordered -> neg --> US abd to evaluate for cirrhosis and hsm ordered --> reviewed --> Peripheral smear ordered to evaluate for blasts /schistocytes --> abx and other meds have been reviewed --> ok for ppx if plt >50k w/ either heparin or lovenox --> Transfuse if Plt < 20k and fever, or if Plt < 10k without fever --> okay for permacath change once plt better--> for 08/14 --> plt trend: 237k # Anemia of chronic disease due to underlying chronic medical issues, multifactorial v Gi bleed --> Anemia workup has been ordered, rule out gi bleed --> No evidence of hemolysis is noted, peripheral smear has been reviewed. --> Hgb goal >7. Transfuse prn. --> Epogen has been started --> HOLD OFF IRON ferritin is >1000 --> Medications have been reviewed --> low threshold for gi evaluation in case has occult + --> hgb 9-->6.7-->9.2 -->10.5 --> blood tx: 08/11 # Early sepsis with shock. --> abx as per id, recs noted # Healthcare-associated pneumonia. --> recs reviewed --> abx: jung # Severe protein-calorie malnutrition. --> nutritional support # End-stage renal disease --> had as renal hd # History of hypertension. --> per cards, now with Bradycardia. # HypoThyroid # Ngt feedings The timing of this note does not necessarily reflect the time of the patient was seen. Greatly appreciate consultation. Subjective Allergies: Coded Allergies: VANCOMYCIN (Unverified Allergy, Unknown, 08/02/19) Subjective 08/11: no bleeding or chills, labs reviewed, no major bleeding, plt less than 50k 08/12: icu, s/p blood, hgb improved to 9.2, 08/14: icu, pending consent for thora and permacath, labs reviewed Objective Objective Current Medications Medications (Trade) Dose Ordered Sig/Javier Route PRN Reason Start Time Stop Time Status Last Admin Dose Admin Atropine Sulfate (Atropine) 1 mg Q4H PRN IVP Per rx protocol 08/13/19 08:30 09/12/19 08:29 Chlorhexidine Gluconate (Nae-Hex 2%) 1 applic DAILY@2000 TOPIC 08/15/19 20:00 09/14/19 19:59 Dextrose (Dextrose 50%) 50 ml Q30M PRN IV Hypoglycemia 08/11/19 10:30 09/04/19 17:44 08/15/19 05:58 Dextrose/Sodium Chloride 1,000 ml @ 20 mls/hr Q24H IV 08/15/19 10:30 09/12/19 10:29 08/15/19 10:25 Diphenhydramine HCl (Benadryl) 50 mg Q4H PRN IVP Itching 08/09/19 14:30 09/08/19 14:29 08/13/19 02:39 Epoetin Thomas (Epoetin Thomas(ESRD on dialysis)) 4,000 unit THU-THU-THU SUBQ 08/12/19 21:00 09/11/19 20:59 08/12/19 20:35 Hydralazine HCl (Apresoline) 25 mg Q6H PRN IV For High Blood Pressure 08/14/19 01:45 09/13/19 01:44 08/15/19 18:15 Levothyroxine Sodium (Synthroid) 75 mcg DAILY IV 08/13/19 09:00 09/12/19 08:59 08/15/19 09:06 Meropenem 500 mg/ Sodium Chloride 55 ml @ 110 mls/hr EVERY 12 HOURS IVPB 08/13/19 21:00 08/18/19 20:59 08/15/19 08:10 Metoclopramide HCl (Reglan) 5 mg Q8H PRN IVP Nausea & Vomiting 08/09/19 12:39 09/08/19 12:38 Nitroglycerin (Nitro-Bid) 1 inch Q6HR TOPIC 08/09/19 12:39 09/08/19 12:38 08/15/19 18:08 Pantoprazole (Protonix) 40 mg EVERY 12 HOURS IVP 08/09/19 21:00 09/08/19 10:44 08/15/19 08:10 Last 24 Hour Vital Signs Date Time Temp Pulse Resp B/P (MAP) Pulse Ox O2 Delivery O2 Flow Rate FiO2 08/15/19 18:17 57 22 161/80 (107) 97 08/15/19 18:15 177/82 08/15/19 18:09 63 26 177/82 (113) 97 08/15/19 18:08 176/69 08/15/19 18:00 59 19 176/69 (104) 98 08/15/19 17:15 50 20 98 40 08/15/19 17:05 52 12 152/90 (110) 98 08/15/19 17:00 51 13 163/71 (101) 98 08/15/19 16:00 59 08/15/19 16:00 97.5 54 16 159/72 (101) 99 08/15/19 16:00 Bi-pap Bi-pap Bi-pap 08/15/19 15:10 56 23 100 40 08/15/19 15:00 53 19 151/71 (97) 99 08/15/19 14:00 57 18 145/65 (91) 99 08/15/19 13:39 55 08/15/19 13:13 71 23 99 45 08/15/19 13:00 52 22 164/73 (103) 97 08/15/19 12:00 Bi-pap Bi-pap Bi-pap 08/15/19 12:00 45 08/15/19 12:00 97.5 65 28 154/83 (106) 96 08/15/19 12:00 63 08/15/19 11:11 170/70 08/15/19 11:10 55 20 159/68 (98) 99 08/15/19 11:00 73 28 170/70 (103) 97 08/15/19 10:49 164/79 08/15/19 10:46 54 19 98 35 08/15/19 10:00 59 16 157/68 (97) 99 08/15/19 09:26 52 21 99 35 08/15/19 09:21 35 08/15/19 09:00 60 20 153/68 (96) 98 08/15/19 08:21 175/86 08/15/19 08:20 51 20 155/76 (102) 99 08/15/19 08:00 57 08/15/19 08:00 Bi-pap Bi-pap Bi-pap 08/15/19 08:00 63 21 175/86 (115) 99 08/15/19 07:46 45 08/15/19 07:04 56 17 157/71 (99) 100 08/15/19 07:00 55 17 163/79 (107) 100 08/15/19 06:55 56 21 100 50 08/15/19 06:55 100 Bi-Pap 70 08/15/19 06:00 60 08/15/19 06:00 60 28 136/81 (99) 100 60 08/15/19 05:37 149/78 08/15/19 05:00 63 20 152/66 (94) 97 63 08/15/19 04:55 61 24 99 60 08/15/19 04:00 58 08/15/19 04:00 98.5 63 21 149/78 (101) 100 63 08/15/19 04:00 70 08/15/19 03:56 Bi-pap Bi-pap Bi-pap Bi-pap 08/15/19 03:42 165/74 08/15/19 03:13 79 22 100 70 08/15/19 03:00 65 25 148/83 (104) 100 65 08/15/19 02:00 65 21 167/69 (101) 100 65 08/15/19 01:24 76 20 100 80 08/15/19 01:00 57 34 143/67 (92) 100 57 08/15/19 00:00 80 08/15/19 00:00 61 08/15/19 00:00 Bi-pap Bi-pap Bi-pap Bi-pap 08/15/19 00:00 98.6 63 30 131/67 (88) 99 63 08/14/19 23:43 139/59 08/14/19 23:17 79 22 98 80 08/14/19 23:00 72 29 145/61 (89) 99 72 08/14/19 22:00 79 20 140/63 (88) 98 79 08/14/19 21:14 162/79 08/14/19 21:00 75 21 162/73 (102) 97 75 08/14/19 20:54 69 24 95 100 08/14/19 20:00 98.8 70 18 154/75 (101) 97 70 08/14/19 20:00 70 08/14/19 20:00 50 08/14/19 20:00 Bi-pap Bi-pap Bi-pap Bi-pap 08/14/19 19:28 100 Bi-Pap 70 08/14/19 19:28 71 23 97 50 08/14/19 19:00 73 39 159/84 (109) 98 08/14/19 18:00 74 26 150/71 (97) 98 08/14/19 17:49 143/71 08/14/19 17:20 62 18 98 50 08/14/19 17:00 61 22 131/69 (89) 96 08/14/19 16:00 98.3 81 24 143/71 (95) 97 08/14/19 16:00 81 08/14/19 16:00 Bi-pap Bi-pap Bi-pap 08/14/19 15:27 61 20 98 50 08/14/19 15:00 61 32 138/71 (93) 97 08/14/19 14:00 54 17 144/68 (93) 97 08/14/19 13:02 59 17 98 50 08/14/19 13:00 50 08/14/19 13:00 55 20 153/68 (96) 99 08/14/19 12:00 Bi-pap Bi-pap Bi-pap 08/14/19 12:00 95.2 63 32 151/80 (103) 97 08/14/19 12:00 58 08/14/19 11:21 153/67 08/14/19 11:00 60 31 153/67 (95) 98 08/14/19 10:00 49 13 159/64 (95) 98 08/14/19 09:19 60 08/14/19 09:19 49 20 99 60 08/14/19 09:00 51 19 150/66 (94) 100 08/14/19 08:00 70 08/14/19 08:00 97.5 55 23 157/74 (101) 100 08/14/19 08:00 Bi-pap Bi-pap Bi-pap 08/14/19 08:00 54 08/14/19 07:35 175/82 08/14/19 07:20 50 25 100 70 08/14/19 07:20 100 Bi-Pap 70 08/14/19 07:00 54 33 164/74 (104) 99 54 08/14/19 06:00 46 27 146/63 (90) 99 46 08/14/19 06:00 146/63 08/14/19 05:24 80 08/14/19 05:12 64 17 98 30 08/14/19 05:00 55 29 155/65 (95) 90 55 08/14/19 04:00 45 08/14/19 04:00 30 08/14/19 04:00 97.1 55 21 154/65 (94) 99 55 08/14/19 04:00 Bi-pap Bi-pap Bi-pap 08/14/19 03:16 61 18 98 30 08/14/19 03:00 55 19 148/58 (88) 95 55 08/14/19 02:00 55 27 143/59 (87) 97 55 08/14/19 01:18 58 20 100 30 08/14/19 01:00 54 20 154/59 (90) 100 54 08/14/19 00:05 140/60 08/14/19 00:00 Bi-pap Bi-pap Bi-pap 08/14/19 00:00 140/60 08/14/19 00:00 97.8 50 24 140/60 (86) 100 50 08/13/19 23:08 43 14 100 30 08/13/19 23:00 47 22 145/96 (112) 97 47 08/13/19 22:00 55 26 174/87 (116) 99 55 08/13/19 21:00 58 24 191/120 (143) 99 58 08/13/19 20:55 42 17 100 30 08/13/19 20:00 50 16 141/58 (85) 98 55 08/13/19 20:00 Bi-pap Bi-pap Bi-pap 08/13/19 20:00 30 08/13/19 20:00 50 08/13/19 19:19 99 Bi-Pap 30 08/13/19 19:19 49 15 99 30 08/13/19 19:00 98.0 49 20 126/61 (82) 99 Intake and Output 08/14/19 08/15/19 19:00 07:00 Intake Total 521.19342 ml 535 ml Output Total 310 ml Balance 211.97611 ml 535 ml IV Total 521.94470 ml 535 ml Output Urine Total 310 ml Labs Test 08/13/19 05:12 08/14/19 02:55 08/14/19 04:55 08/14/19 09:38 White Blood Count 6.4 K/UL (4.8-10.8) Red Blood Count 3.47 M/UL (4.20-5.40) Hemoglobin 10.4 G/DL (12.0-16.0) Hematocrit 30.3 % (37.0-47.0) Mean Corpuscular Volume 87 FL (80-99) Mean Corpuscular Hemoglobin 29.9 PG (27.0-31.0) Mean Corpuscular Hemoglobin Concent 34.3 G/DL (32.0-36.0) Red Cell Distribution Width 15.0 % (11.6-14.8) Platelet Count 83 K/UL (150-450) Mean Platelet Volume 8.5 FL (6.5-10.1) Neutrophils (%) (Auto) % (45.0-75.0) Lymphocytes (%) (Auto) % (20.0-45.0) Monocytes (%) (Auto) % (1.0-10.0) Eosinophils (%) (Auto) % (0.0-3.0) Basophils (%) (Auto) % (0.0-2.0) Differential Total Cells Counted 100 Neutrophils % (Manual) 49 % (45-75) Lymphocytes % (Manual) 40 % (20-45) Monocytes % (Manual) 9 % (1-10) Eosinophils % (Manual) 1 % (0-3) Basophils % (Manual) 1 % (0-2) Band Neutrophils 0 % (0-8) Platelet Estimate Decreased Platelet Morphology Normal Hypochromasia 1+ Anisocytosis 1+ Sodium Level 142 MMOL/L (136-145) 143 MMOL/L (136-145) Potassium Level 3.3 MMOL/L (3.5-5.1) 3.3 MMOL/L (3.5-5.1) Chloride Level 103 MMOL/L (98-107) 104 MMOL/L (98-107) Carbon Dioxide Level 31 MMOL/L (21-32) 31 MMOL/L (21-32) Anion Gap 8 mmol/L (5-15) 8 mmol/L (5-15) Blood Urea Nitrogen 36 mg/dL (7-18) 40 mg/dL (7-18) Creatinine 3.7 MG/DL (0.55-1.30) 4.1 MG/DL (0.55-1.30) Estimat Glomerular Filtration Rate 11.8 mL/min (>60) 10.5 mL/min (>60) Glucose Level 101 MG/DL (74-106) 113 MG/DL (74-106) Calcium Level 8.7 MG/DL (8.5-10.1) 8.8 MG/DL (8.5-10.1) Phosphorus Level 4.1 MG/DL (2.5-4.9) 4.6 MG/DL (2.5-4.9) Magnesium Level 2.1 MG/DL (1.8-2.4) 2.0 MG/DL (1.8-2.4) Total Bilirubin 0.5 MG/DL (0.2-1.0) 0.5 MG/DL (0.2-1.0) Aspartate Amino Transf (AST/SGOT) 26 U/L (15-37) 27 U/L (15-37) Alanine Aminotransferase (ALT/SGPT) < 6 U/L (12-78) < 6 U/L (12-78) Alkaline Phosphatase 121 U/L (46-116) 120 U/L (46-116) Troponin I 0.557 ng/mL (0.000-0.056) C-Reactive Protein, Quantitative 5.8 mg/dL (0.00-0.90) 5.8 mg/dL (0.00-0.90) Pro-B-Type Natriuretic Peptide > 62686 pg/mL (0-125) > 54978 pg/mL (0-125) Total Protein 5.5 G/DL (6.4-8.2) 5.7 G/DL (6.4-8.2) Albumin 1.4 G/DL (3.4-5.0) 1.5 G/DL (3.4-5.0) Globulin 4.1 g/dL 4.2 g/dL Albumin/Globulin Ratio 0.3 (1.0-2.7) 0.4 (1.0-2.7) Thyroid Stimulating Hormone (TSH) 12.263 uiU/mL (0.358-3.740) Free Thyroxine 1.22 NG/DL (0.76-1.46) Free Triiodothyronine 0.8 pg/mL (2.3-4.2) Cortisol 15.1 UG/DL Uric Acid 7.2 MG/DL (2.6-7.2) Arterial Blood pH 7.422 (7.350-7.450) Arterial Blood Partial Pressure CO2 46.0 mmHg (35.0-45.0) Arterial Blood Partial Pressure O2 76.5 mmHg (75.0-100.0) Arterial Blood HCO3 29.3 mmol/L (22.0-26.0) Arterial Blood Oxygen Saturation 95.0 % (95-100) Arterial Blood Base Excess 4.2 (-2-2) Cuauhtemoc Test Positive Test 08/15/19 08:05 White Blood Count 5.9 K/UL (4.8-10.8) Red Blood Count 3.45 M/UL (4.20-5.40) Hemoglobin 10.5 G/DL (12.0-16.0) Hematocrit 30.2 % (37.0-47.0) Mean Corpuscular Volume 87 FL (80-99) Mean Corpuscular Hemoglobin 30.4 PG (27.0-31.0) Mean Corpuscular Hemoglobin Concent 34.8 G/DL (32.0-36.0) Red Cell Distribution Width 15.2 % (11.6-14.8) Platelet Count 237 K/UL (150-450) Mean Platelet Volume 7.8 FL (6.5-10.1) Neutrophils (%) (Auto) 50.7 % (45.0-75.0) Lymphocytes (%) (Auto) 38.9 % (20.0-45.0) Monocytes (%) (Auto) 8.3 % (1.0-10.0) Eosinophils (%) (Auto) 1.0 % (0.0-3.0) Basophils (%) (Auto) 1.0 % (0.0-2.0) Height (Feet): 5 Height (Inches): 4.00 Weight (Pounds): 99 Objective gen: nad pulm: on venturimask cv: rrr, no gmr abd: sfot, nt, nd ext: no cce Gio Rob MD Aug 15, 2019 18:45
[2019-08-15] MEDS: Dyna-Hex 2% Top Sol 2oz TOPIC SCH (20:58)
[2019-08-15] MEDS: Epoetin Alfa-EPBX(ESRD on dialysis)4000 units/ml vial SUBQ SCH (20:59)
--- NOTE | 2019-08-15 21:54 | General Progress Note ---
Assessment/Plan Status: stable, not improved, unchanged, deteriorating Assessment/Plan: Assessment - Resp failure --> BIPAP - thrombocytopenia --> improved - Renal failure - aspiration risk - anemia - bradycardia Recommendations - Still not safe for NGT placement - Consider heme opinion re low platelets - IVF - can place PEG once stablized or if intubated - alternatively, can re-address hospice Subjective Allergies: Coded Allergies: VANCOMYCIN (Unverified Allergy, Unknown, 08/02/19) Subjective above noted seen in ICU d/w RN still bradycardic and on BIPAP Objective Last 24 Hour Vital Signs Date Time Temp Pulse Resp B/P (MAP) Pulse Ox O2 Delivery O2 Flow Rate FiO2 08/15/19 20:00 52 20 156/74 (101) 98 52 08/15/19 20:00 53 08/15/19 20:00 55 08/15/19 20:00 Bi-pap Bi-pap Bi-pap 08/15/19 19:40 97 Bi-Pap 40 08/15/19 19:39 53 19 97 40 08/15/19 19:00 61 19 144/71 (95) 94 08/15/19 18:17 57 22 161/80 (107) 97 08/15/19 18:15 177/82 08/15/19 18:09 63 26 177/82 (113) 97 08/15/19 18:08 176/69 08/15/19 18:00 59 19 176/69 (104) 98 08/15/19 17:15 50 20 98 40 08/15/19 17:05 52 12 152/90 (110) 98 08/15/19 17:00 51 13 163/71 (101) 98 08/15/19 16:00 59 08/15/19 16:00 97.5 54 16 159/72 (101) 99 08/15/19 16:00 Bi-pap Bi-pap Bi-pap 08/15/19 15:10 56 23 100 40 08/15/19 15:00 53 19 151/71 (97) 99 08/15/19 14:00 57 18 145/65 (91) 99 08/15/19 13:39 55 08/15/19 13:13 71 23 99 45 08/15/19 13:00 52 22 164/73 (103) 97 08/15/19 12:00 Bi-pap Bi-pap Bi-pap 08/15/19 12:00 45 08/15/19 12:00 97.5 65 28 154/83 (106) 96 08/15/19 12:00 63 08/15/19 11:11 170/70 08/15/19 11:10 55 20 159/68 (98) 99 08/15/19 11:00 73 28 170/70 (103) 97 08/15/19 10:49 164/79 08/15/19 10:46 54 19 98 35 08/15/19 10:00 59 16 157/68 (97) 99 08/15/19 09:26 52 21 99 35 08/15/19 09:21 35 08/15/19 09:00 60 20 153/68 (96) 98 08/15/19 08:21 175/86 08/15/19 08:20 51 20 155/76 (102) 99 08/15/19 08:00 57 08/15/19 08:00 Bi-pap Bi-pap Bi-pap 08/15/19 08:00 63 21 175/86 (115) 99 08/15/19 07:46 45 08/15/19 07:04 56 17 157/71 (99) 100 08/15/19 07:00 55 17 163/79 (107) 100 08/15/19 06:55 56 21 100 50 08/15/19 06:55 100 Bi-Pap 70 08/15/19 06:00 60 08/15/19 06:00 60 28 136/81 (99) 100 60 08/15/19 05:37 149/78 08/15/19 05:00 63 20 152/66 (94) 97 63 08/15/19 04:55 61 24 99 60 08/15/19 04:00 58 08/15/19 04:00 98.5 63 21 149/78 (101) 100 63 08/15/19 04:00 70 08/15/19 03:56 Bi-pap Bi-pap Bi-pap Bi-pap 08/15/19 03:42 165/74 08/15/19 03:13 79 22 100 70 08/15/19 03:00 65 25 148/83 (104) 100 65 08/15/19 02:00 65 21 167/69 (101) 100 65 08/15/19 01:24 76 20 100 80 08/15/19 01:00 57 34 143/67 (92) 100 57 08/15/19 00:00 80 08/15/19 00:00 61 08/15/19 00:00 Bi-pap Bi-pap Bi-pap Bi-pap 08/15/19 00:00 98.6 63 30 131/67 (88) 99 63 08/14/19 23:43 139/59 08/14/19 23:17 79 22 98 80 08/14/19 23:00 72 29 145/61 (89) 99 72 08/14/19 22:00 79 20 140/63 (88) 98 79 Intake and Output 08/14/19 08/15/19 19:00 07:00 Intake Total 521.33575 ml 535 ml Output Total 310 ml Balance 211.40902 ml 535 ml IV Total 521.06224 ml 535 ml Output Urine Total 310 ml Laboratory Tests 08/15/19 08:05: White Blood Count 5.9, Red Blood Count 3.45L, Hemoglobin 10.5L, Hematocrit 30.2L , Mean Corpuscular Volume 87, Mean Corpuscular Hemoglobin 30.4, Mean Corpuscular Hemoglobin Concent 34.8, Red Cell Distribution Width 15.2H, Platelet Count 237, Mean Platelet Volume 7.8, Neutrophils (%) (Auto) 50.7, Lymphocytes (%) (Auto) 38.9, Monocytes (%) (Auto) 8.3, Eosinophils (%) (Auto) 1.0, Basophils (%) (Auto) 1.0 Height (Feet): 5 Height (Inches): 4.00 Weight (Pounds): 99 Objective Debilitated frail woman NCAT (+) BIPAP supple scattered ronchi RR abd soft ND NT no edema Cristy Elizondo MD Aug 15, 2019 21:54
[2019-08-16] VITALS (24 sets, daily range): BP systolic 118–183; BP diastolic 66–90
[2019-08-16] MEDS: Nitroglycerin 2% oint pkt TOPIC SCH ×4 (00:49→17:20)
--- NOTE | 2019-08-16 05:15 | Progress Note ---
DATE: 08/15/2019 CARDIOLOGY PROGRESS NOTE SUBJECTIVE: The patient PermCath placed for dialysis that is life-saving. Prior catheter was removed due to sepsis. Monitored rhythm, sinus bradycardia, no pauses. OBJECTIVE: VITAL SIGNS: Blood pressure 153/68, heart rate 52, respiratory rate 20. CHEST WALL: Exam reveals chest wall site clean with no active bleeding. LUNGS: With few rhonchi. CARDIAC: Regular rhythm and rate. Normal S1, S2. ABDOMEN: Soft. EXTREMITIES: Trace edema. LABORATORY DATA: White count 5.9, hemoglobin 10.5. Potassium 3.3, BUN 40, creatinine 4.1. Pro-natriuretic peptide over 35,000. IMPRESSION: 1. Sepsis with recovered shock. 2. Acute non ST-elevation myocardial infarction. 3. End-stage renal disease. 4. Sinus bradycardia in the setting of sinus node disease. 5. Hypothyroidism. 6. Cerebrovascular disease with dementia. 7. Severe protein-calorie malnutrition. PLAN: 1. New PermCath. 2. Hemodialysis with ultrafiltration to follow. 3. IV thyroid replacement for now. 4. Antianginal and antihypertensive therapy to be titrated based on clinical parameters. 5. Protein supplement by feeding tube. 6. Antimicrobials and respiratory hygiene. Abel Stubbs M.D. DR: BOOM JOB#: [id number] CC:
--- NOTE | 2019-08-16 06:56 | Hematology/Onc Progress Note ---
Assessment/Plan Assessment/Plan # Thrombocytopenia - potential causes multifactorial, evaluate liver and viral etiologies to begin, in this case due to sepsis with septic shock also with cirrhosis and liver disease --> Hep panel and HIV ordered -> neg --> US abd to evaluate for cirrhosis and hsm ordered --> reviewed --> Peripheral smear ordered to evaluate for blasts /schistocytes --> abx and other meds have been reviewed --> ok for ppx if plt >50k w/ either heparin or lovenox --> Transfuse if Plt < 20k and fever, or if Plt < 10k without fever --> okay for permacath change once plt better--> for 08/14 --> plt trend: 43-->83-->237k # Anemia of chronic disease due to underlying chronic medical issues, multifactorial v Gi bleed --> Anemia workup has been ordered, rule out gi bleed --> No evidence of hemolysis is noted, peripheral smear has been reviewed. --> Hgb goal >7. Transfuse prn. --> Epogen has been started --> HOLD OFF IRON ferritin is >1000 --> Medications have been reviewed --> low threshold for gi evaluation in case has occult + --> hgb 9-->6.7-->9.2 -->10.5 --> blood tx: 08/11 # Early sepsis with shock. --> abx as per id, recs noted # Healthcare-associated pneumonia. --> recs reviewed --> abx: jung # Severe protein-calorie malnutrition. --> nutritional support # End-stage renal disease --> had as renal hd --> with permacath # History of hypertension. --> per cards, now with Bradycardia. # HypoThyroid # Ngt feedings # Dvt ppx lovenox sq The timing of this note does not necessarily reflect the time of the patient was seen. Greatly appreciate consultation. Subjective Constitutional: Denies: no symptoms, chills, fever, malaise, weakness, other HEENT: Denies: no symptoms, eye pain, blurred vision, tearing, double vision, ear pain, ear discharge, nose pain, nose congestion, throat pain, throat swelling, mouth pain, mouth swelling, other Cardiovascular: Denies: no symptoms, chest pain, edema, irregular heart rate, lightheadedness, palpitations, syncope, other Respiratory: Denies: no symptoms, cough, shortness of breath, SOB with excertion, SOB at rest, sputum, wheezing, other Gastrointestinal/Abdominal: Denies: no symptoms, abdomen distended, abdominal pain, black stools, tarry stools, blood in stool, constipated, diarrhea, difficulty swallowing, nausea, poor appetite, poor fluid intake, rectal bleeding , vomiting, other Genitourinary: Denies: no symptoms, burning, discharge, frequency, flank pain, hematuria, incontinence, pain, urgency, other Neurologic/Psychiatric: Denies: no symptoms, anxiety, depressed, emotional problems, headache, numbness, paresthesia, pre-existing deficit, seizure, tingling, tremors, weakness, other Endocrine: Denies: no symptoms, excessive sweating, flushing, intolerance to cold, intolerance to heat, increased hunger, increased thirst, increased urine, unexplained weight gain, unexplained weight loss, other Allergies: Coded Allergies: VANCOMYCIN (Unverified Allergy, Unknown, 08/02/19) Subjective 08/11: no bleeding or chills, labs reviewed, no major bleeding, plt less than 50k 08/12: icu, s/p blood, hgb improved to 9.2, 08/14: icu, pending consent for thora and permacath, labs reviewed 08/15: new permacath placed, no bleeding, for hd, plt much improved, started lovenox sq Objective Objective Current Medications Medications (Trade) Dose Ordered Sig/Javier Route PRN Reason Start Time Stop Time Status Last Admin Dose Admin Atropine Sulfate (Atropine) 1 mg Q4H PRN IVP Per rx protocol 08/13/19 08:30 09/12/19 08:29 Chlorhexidine Gluconate (Nae-Hex 2%) 1 applic DAILY@1999 TOPIC 08/15/19 20:00 09/14/19 19:59 08/15/19 20:58 Dextrose (Dextrose 50%) 50 ml Q30M PRN IV Hypoglycemia 08/11/19 10:30 09/04/19 17:44 08/15/19 05:58 Dextrose/Sodium Chloride 1,000 ml @ 20 mls/hr Q24H IV 08/15/19 10:30 09/12/19 10:29 08/15/19 10:25 Diphenhydramine HCl (Benadryl) 50 mg Q4H PRN IVP Itching 08/09/19 14:30 09/08/19 14:29 08/13/19 02:39 Epoetin Thomas (Epoetin Thomas(ESRD on dialysis)) 4,000 unit THU-THU-THU SUBQ 08/12/19 21:00 09/11/19 20:59 08/15/19 20:59 Hydralazine HCl (Apresoline) 25 mg Q6H PRN IV For High Blood Pressure 08/14/19 01:45 09/13/19 01:44 08/15/19 18:15 Levothyroxine Sodium (Synthroid) 75 mcg DAILY IV 08/13/19 09:00 09/12/19 08:59 08/15/19 09:06 Meropenem 500 mg/ Sodium Chloride 55 ml @ 110 mls/hr EVERY 12 HOURS IVPB 08/13/19 21:00 08/18/19 20:59 08/15/19 20:57 Metoclopramide HCl (Reglan) 5 mg Q8H PRN IVP Nausea & Vomiting 08/09/19 12:39 09/08/19 12:38 Nitroglycerin (Nitro-Bid) 1 inch Q6HR TOPIC 08/09/19 12:39 09/08/19 12:38 08/16/19 06:18 Pantoprazole (Protonix) 40 mg EVERY 12 HOURS IVP 08/09/19 21:00 09/08/19 10:44 08/15/19 20:58 Last 24 Hour Vital Signs Date Time Temp Pulse Resp B/P (MAP) Pulse Ox O2 Delivery O2 Flow Rate FiO2 08/16/19 06:18 175/82 08/16/19 06:00 56 20 175/82 (113) 98 56 08/16/19 05:25 57 22 99 40 08/16/19 05:00 Bi-pap Bi-pap Bi-pap 08/16/19 05:00 52 16 183/71 (108) 97 52 08/16/19 04:00 97.0 53 25 168/73 (104) 96 53 08/16/19 04:00 54 08/16/19 04:00 55 08/16/19 03:27 55 20 99 40 08/16/19 03:00 60 33 174/69 (104) 98 60 08/16/19 02:00 61 26 122/71 (88) 99 08/16/19 01:34 61 18 98 40 08/16/19 01:00 59 21 153/75 (101) 100 59 08/16/19 00:49 176/84 08/16/19 00:00 60 08/16/19 00:00 97.5 62 24 166/77 (106) 97 08/16/19 00:00 55 08/16/19 00:00 Bi-pap Bi-pap Bi-pap 08/15/19 23:45 60 15 99 40 08/15/19 23:00 60 26 167/81 (109) 97 60 08/15/19 22:00 58 25 160/77 (104) 98 08/15/19 21:24 61 16 97 40 08/15/19 21:00 58 14 164/84 (110) 98 08/15/19 20:00 52 20 156/74 (101) 98 52 08/15/19 20:00 53 08/15/19 20:00 55 08/15/19 20:00 Bi-pap Bi-pap Bi-pap 08/15/19 19:40 97 Bi-Pap 40 08/15/19 19:39 53 19 97 40 08/15/19 19:00 61 19 144/71 (95) 94 08/15/19 18:17 57 22 161/80 (107) 97 08/15/19 18:15 177/82 08/15/19 18:09 63 26 177/82 (113) 97 08/15/19 18:08 176/69 08/15/19 18:00 59 19 176/69 (104) 98 08/15/19 17:15 50 20 98 40 08/15/19 17:05 52 12 152/90 (110) 98 08/15/19 17:00 51 13 163/71 (101) 98 08/15/19 16:00 59 08/15/19 16:00 97.5 54 16 159/72 (101) 99 08/15/19 16:00 Bi-pap Bi-pap Bi-pap 08/15/19 15:10 56 23 100 40 08/15/19 15:00 53 19 151/71 (97) 99 08/15/19 14:00 57 18 145/65 (91) 99 08/15/19 13:39 55 08/15/19 13:13 71 23 99 45 08/15/19 13:00 52 22 164/73 (103) 97 08/15/19 12:00 Bi-pap Bi-pap Bi-pap 08/15/19 12:00 45 08/15/19 12:00 97.5 65 28 154/83 (106) 96 08/15/19 12:00 63 08/15/19 11:11 170/70 08/15/19 11:10 55 20 159/68 (98) 99 08/15/19 11:00 73 28 170/70 (103) 97 08/15/19 10:49 164/79 08/15/19 10:46 54 19 98 35 08/15/19 10:00 59 16 157/68 (97) 99 08/15/19 09:26 52 21 99 35 08/15/19 09:21 35 08/15/19 09:00 60 20 153/68 (96) 98 08/15/19 08:21 175/86 08/15/19 08:20 51 20 155/76 (102) 99 08/15/19 08:00 57 08/15/19 08:00 Bi-pap Bi-pap Bi-pap 08/15/19 08:00 63 21 175/86 (115) 99 08/15/19 07:46 45 08/15/19 07:04 56 17 157/71 (99) 100 08/15/19 07:00 55 17 163/79 (107) 100 08/15/19 06:55 56 21 100 50 08/15/19 06:55 100 Bi-Pap 70 08/15/19 06:00 60 08/15/19 06:00 60 28 136/81 (99) 100 60 08/15/19 05:37 149/78 08/15/19 05:00 63 20 152/66 (94) 97 63 08/15/19 04:55 61 24 99 60 08/15/19 04:00 58 08/15/19 04:00 98.5 63 21 149/78 (101) 100 63 08/15/19 04:00 70 08/15/19 03:56 Bi-pap Bi-pap Bi-pap Bi-pap 08/15/19 03:42 165/74 08/15/19 03:13 79 22 100 70 08/15/19 03:00 65 25 148/83 (104) 100 65 08/15/19 02:00 65 21 167/69 (101) 100 65 08/15/19 01:24 76 20 100 80 08/15/19 01:00 57 34 143/67 (92) 100 57 08/15/19 00:00 80 08/15/19 00:00 61 08/15/19 00:00 Bi-pap Bi-pap Bi-pap Bi-pap 08/15/19 00:00 98.6 63 30 131/67 (88) 99 63 08/14/19 23:43 139/59 08/14/19 23:17 79 22 98 80 08/14/19 23:00 72 29 145/61 (89) 99 72 08/14/19 22:00 79 20 140/63 (88) 98 79 08/14/19 21:14 162/79 08/14/19 21:00 75 21 162/73 (102) 97 75 08/14/19 20:54 69 24 95 100 08/14/19 20:00 98.8 70 18 154/75 (101) 97 70 08/14/19 20:00 70 08/14/19 20:00 50 08/14/19 20:00 Bi-pap Bi-pap Bi-pap Bi-pap 08/14/19 19:28 100 Bi-Pap 70 08/14/19 19:28 71 23 97 50 08/14/19 19:00 73 39 159/84 (109) 98 08/14/19 18:00 74 26 150/71 (97) 98 08/14/19 17:49 143/71 08/14/19 17:20 62 18 98 50 08/14/19 17:00 61 22 131/69 (89) 96 08/14/19 16:00 98.3 81 24 143/71 (95) 97 08/14/19 16:00 81 08/14/19 16:00 Bi-pap Bi-pap Bi-pap 08/14/19 15:27 61 20 98 50 08/14/19 15:00 61 32 138/71 (93) 97 08/14/19 14:00 54 17 144/68 (93) 97 08/14/19 13:02 59 17 98 50 08/14/19 13:00 50 3/1/20 13:00 55 20 153/68 (96) 99 08/14/19 12:00 Bi-pap Bi-pap Bi-pap 08/14/19 12:00 95.2 63 32 151/80 (103) 97 08/14/19 12:00 58 08/14/19 11:21 153/67 08/14/19 11:00 60 31 153/67 (95) 98 08/14/19 10:00 49 13 159/64 (95) 98 08/14/19 09:19 60 08/14/19 09:19 49 20 99 60 08/14/19 09:00 51 19 150/66 (94) 100 08/14/19 08:00 70 08/14/19 08:00 97.5 55 23 157/74 (101) 100 08/14/19 08:00 Bi-pap Bi-pap Bi-pap 08/14/19 08:00 54 08/14/19 07:35 175/82 08/14/19 07:20 50 25 100 70 08/14/19 07:20 100 Bi-Pap 70 08/14/19 07:00 54 33 164/74 (104) 99 54 Intake and Output 08/15/19 08/16/19 19:00 07:00 Intake Total 330.91060 ml 195 ml Output Total 0 ml Balance 330.61941 ml 195 ml IV Total 330.38958 ml 195 ml Output Urine Total 0 ml Labs Test 08/14/19 02:55 08/14/19 04:55 08/14/19 09:38 08/15/19 08:05 Cortisol 15.1 UG/DL Sodium Level 143 MMOL/L (136-145) Potassium Level 3.3 MMOL/L (3.5-5.1) Chloride Level 104 MMOL/L (98-107) Carbon Dioxide Level 31 MMOL/L (21-32) Anion Gap 8 mmol/L (5-15) Blood Urea Nitrogen 40 mg/dL (7-18) Creatinine 4.1 MG/DL (0.55-1.30) Estimat Glomerular Filtration Rate 10.5 mL/min (>60) Glucose Level 113 MG/DL (74-106) Uric Acid 7.2 MG/DL (2.6-7.2) Calcium Level 8.8 MG/DL (8.5-10.1) Phosphorus Level 4.6 MG/DL (2.5-4.9) Magnesium Level 2.0 MG/DL (1.8-2.4) Total Bilirubin 0.5 MG/DL (0.2-1.0) Aspartate Amino Transf (AST/SGOT) 27 U/L (15-37) Alanine Aminotransferase (ALT/SGPT) < 6 U/L (12-78) Alkaline Phosphatase 120 U/L (46-116) C-Reactive Protein, Quantitative 5.8 mg/dL (0.00-0.90) Pro-B-Type Natriuretic Peptide > 40851 pg/mL (0-125) Total Protein 5.7 G/DL (6.4-8.2) Albumin 1.5 G/DL (3.4-5.0) Globulin 4.2 g/dL Albumin/Globulin Ratio 0.4 (1.0-2.7) Arterial Blood pH 7.422 (7.350-7.450) Arterial Blood Partial Pressure CO2 46.0 mmHg (35.0-45.0) Arterial Blood Partial Pressure O2 76.5 mmHg (75.0-100.0) Arterial Blood HCO3 29.3 mmol/L (22.0-26.0) Arterial Blood Oxygen Saturation 95.0 % (95-100) Arterial Blood Base Excess 4.2 (-2-2) Cuauhtemoc Test Positive White Blood Count 5.9 K/UL (4.8-10.8) Red Blood Count 3.45 M/UL (4.20-5.40) Hemoglobin 10.5 G/DL (12.0-16.0) Hematocrit 30.2 % (37.0-47.0) Mean Corpuscular Volume 87 FL (80-99) Mean Corpuscular Hemoglobin 30.4 PG (27.0-31.0) Mean Corpuscular Hemoglobin Concent 34.8 G/DL (32.0-36.0) Red Cell Distribution Width 15.2 % (11.6-14.8) Platelet Count 237 K/UL (150-450) Mean Platelet Volume 7.8 FL (6.5-10.1) Neutrophils (%) (Auto) 50.7 % (45.0-75.0) Lymphocytes (%) (Auto) 38.9 % (20.0-45.0) Monocytes (%) (Auto) 8.3 % (1.0-10.0) Eosinophils (%) (Auto) 1.0 % (0.0-3.0) Basophils (%) (Auto) 1.0 % (0.0-2.0) Height (Feet): 5 Height (Inches): 4.00 Weight (Pounds): 99 Objective gen: nad pulm: on venturimask cv: rrr, no gmr abd: sfot, nt, nd ext: no ambere Gio Rob MD Aug 16, 2019 06:56
[2019-08-16] MEDS: Meropenem 500 MG in NS 55 ML IVPB SCH ×2 (08:39→21:35)
[2019-08-16] MEDS: Pantoprazole Inj IVP SCH ×2 (08:39→21:35)
[2019-08-16] MEDS ORDERED: NS 275ml ONE ×2 (08:59→09:06)
[2019-08-16] MEDS ORDERED: Tubing IV Secondary IV ONE (08:59)
[2019-08-16] MEDS ORDERED: 1/2 NS 1000ml IV ONE (08:59)
[2019-08-16] MEDS ORDERED: Enoxaparin 30mg Inj SUBQ SCH (09:00)
[2019-08-16] MEDS ORDERED: D5NS 1000ml IV ONE (09:06)
--- NOTE | 2019-08-16 09:12 | Critical Care Progress Note ---
Assessment/Plan Assessment/Plan respiratory failure hemoptysis hypoxemia chronic renal failure toxic met encephalopathy severe protein calorie malnutrition cachexia left lung whiteout PLAN care noted awaiting family to call back would need to d/w family would need bronchoscopy and likely intubation in the setting antibiotics monitor imaging and repeat today BIPAP for now avoid excessive suctioning with coagulopathy elevated head may need intubation; monitor ABG follow up oxygen needs watch fluid status nutrition as able off load ICU care discussed critical at present requires ICU management feeds as able elevate head medications/laboratory data/nursing notes/ICU care reviewed in detail note reviewed and edited care discussed with RN and RT ICU time spent >38 minutes coordinating care Critical Care - Subjective Interval Events: care noted unable to get consent left message for son but no answer US with small effusion ROS Limited/Unobtainable: Yes Condition: critical EKG Rhythm: Sinus Rhythm I&O: Intake and Output 08/15/19 08/16/19 19:00 07:00 Intake Total 330.95961 ml 195 ml Output Total 0 ml Balance 330.54788 ml 195 ml IV Total 330.81574 ml 195 ml Output Urine Total 0 ml Critical Care - Objective Last 24 Hour Vital Signs Date Time Temp Pulse Resp B/P (MAP) Pulse Ox O2 Delivery O2 Flow Rate FiO2 08/16/19 08:54 55 16 97 40 08/16/19 06:42 98 Bi-Pap 40 08/16/19 06:42 47 17 99 40 08/16/19 06:18 175/82 08/16/19 06:00 56 20 175/82 (113) 98 56 08/16/19 05:25 57 22 99 40 08/16/19 05:00 Bi-pap Bi-pap Bi-pap 08/16/19 05:00 52 16 183/71 (108) 97 52 08/16/19 04:00 97.0 53 25 168/73 (104) 96 53 08/16/19 04:00 54 08/16/19 04:00 55 08/16/19 03:27 55 20 99 40 08/16/19 03:00 60 33 174/69 (104) 98 60 08/16/19 02:00 61 26 122/71 (88) 99 08/16/19 01:34 61 18 98 40 08/16/19 01:00 59 21 153/75 (101) 100 59 3/3/20 00:49 176/84 08/16/19 00:00 60 08/16/19 00:00 97.5 62 24 166/77 (106) 97 08/16/19 00:00 55 08/16/19 00:00 Bi-pap Bi-pap Bi-pap 08/15/19 23:45 60 15 99 40 08/15/19 23:00 60 26 167/81 (109) 97 60 08/15/19 22:00 58 25 160/77 (104) 98 08/15/19 21:24 61 16 97 40 08/15/19 21:00 58 14 164/84 (110) 98 08/15/19 20:00 52 20 156/74 (101) 98 52 08/15/19 20:00 53 08/15/19 20:00 55 08/15/19 20:00 Bi-pap Bi-pap Bi-pap 08/15/19 19:40 97 Bi-Pap 40 08/15/19 19:39 53 19 97 40 08/15/19 19:00 61 19 144/71 (95) 94 08/15/19 18:17 57 22 161/80 (107) 97 08/15/19 18:15 177/82 08/15/19 18:09 63 26 177/82 (113) 97 08/15/19 18:08 176/69 08/15/19 18:00 59 19 176/69 (104) 98 08/15/19 17:15 50 20 98 40 08/15/19 17:05 52 12 152/90 (110) 98 08/15/19 17:00 51 13 163/71 (101) 98 08/15/19 16:00 59 08/15/19 16:00 97.5 54 16 159/72 (101) 99 08/15/19 16:00 Bi-pap Bi-pap Bi-pap 08/15/19 15:10 56 23 100 40 08/15/19 15:00 53 19 151/71 (97) 99 08/15/19 14:00 57 18 145/65 (91) 99 08/15/19 13:39 55 08/15/19 13:13 71 23 99 45 08/15/19 13:00 52 22 164/73 (103) 97 08/15/19 12:00 Bi-pap Bi-pap Bi-pap 08/15/19 12:00 45 08/15/19 12:00 97.5 65 28 154/83 (106) 96 08/15/19 12:00 63 08/15/19 11:11 170/70 08/15/19 11:10 55 20 159/68 (98) 99 08/15/19 11:00 73 28 170/70 (103) 97 08/15/19 10:49 164/79 08/15/19 10:46 54 19 98 35 08/15/19 10:00 59 16 157/68 (97) 99 08/15/19 09:26 52 21 99 35 08/15/19 09:21 35 Labs: Labs Test 08/14/19 02:55 08/14/19 04:55 08/14/19 09:38 08/15/19 08:05 Cortisol 15.1 UG/DL Sodium Level 143 MMOL/L (136-145) Potassium Level 3.3 MMOL/L (3.5-5.1) Chloride Level 104 MMOL/L (98-107) Carbon Dioxide Level 31 MMOL/L (21-32) Anion Gap 8 mmol/L (5-15) Blood Urea Nitrogen 40 mg/dL (7-18) Creatinine 4.1 MG/DL (0.55-1.30) Estimat Glomerular Filtration Rate 10.5 mL/min (>60) Glucose Level 113 MG/DL (74-106) Uric Acid 7.2 MG/DL (2.6-7.2) Calcium Level 8.8 MG/DL (8.5-10.1) Phosphorus Level 4.6 MG/DL (2.5-4.9) Magnesium Level 2.0 MG/DL (1.8-2.4) Total Bilirubin 0.5 MG/DL (0.2-1.0) Aspartate Amino Transf (AST/SGOT) 27 U/L (15-37) Alanine Aminotransferase (ALT/SGPT) < 6 U/L (12-78) Alkaline Phosphatase 120 U/L (46-116) C-Reactive Protein, Quantitative 5.8 mg/dL (0.00-0.90) Pro-B-Type Natriuretic Peptide > 74786 pg/mL (0-125) Total Protein 5.7 G/DL (6.4-8.2) Albumin 1.5 G/DL (3.4-5.0) Globulin 4.2 g/dL Albumin/Globulin Ratio 0.4 (1.0-2.7) Arterial Blood pH 7.422 (7.350-7.450) Arterial Blood Partial Pressure CO2 46.0 mmHg (35.0-45.0) Arterial Blood Partial Pressure O2 76.5 mmHg (75.0-100.0) Arterial Blood HCO3 29.3 mmol/L (22.0-26.0) Arterial Blood Oxygen Saturation 95.0 % (95-100) Arterial Blood Base Excess 4.2 (-2-2) Cuauhtemoc Test Positive White Blood Count 5.9 K/UL (4.8-10.8) Red Blood Count 3.45 M/UL (4.20-5.40) Hemoglobin 10.5 G/DL (12.0-16.0) Hematocrit 30.2 % (37.0-47.0) Mean Corpuscular Volume 87 FL (80-99) Mean Corpuscular Hemoglobin 30.4 PG (27.0-31.0) Mean Corpuscular Hemoglobin Concent 34.8 G/DL (32.0-36.0) Red Cell Distribution Width 15.2 % (11.6-14.8) Platelet Count 237 K/UL (150-450) Mean Platelet Volume 7.8 FL (6.5-10.1) Neutrophils (%) (Auto) 50.7 % (45.0-75.0) Lymphocytes (%) (Auto) 38.9 % (20.0-45.0) Monocytes (%) (Auto) 8.3 % (1.0-10.0) Eosinophils (%) (Auto) 1.0 % (0.0-3.0) Basophils (%) (Auto) 1.0 % (0.0-2.0) Objective: WDWN NAD reduced breath sounds left >>right without rhonchi or wheeze [id number] without MRG NABS nontender no HSM no CCE contractures on BIPAP poorly responsive nonfocal reviewed and edited Micro: Microbiology Date/Time Source Procedure Growth Status 08/14/19 05:10 Blood Blood Culture - Preliminary NO GROWTH AFTER 48 HOURS Resulted 08/14/19 04:55 Blood Blood Culture - Preliminary NO GROWTH AFTER 48 HOURS Resulted Accucheck: 87 Malcolm Cruz MD Aug 16, 2019 09:12
[2019-08-16 10:16] LABS: ANION GAP 11 mmol/L (5-15); BLOOD UREA NITROGEN 42 mg/dL (7-18); CARBON DIOXIDE 27 MMOL/L (21-32); CHLORIDE 109 MMOL/L (98-107); EOSINOPHILS % (AUTO) 0.6 % (0.0-3.0); HEMATOCRIT 34.5 % (37.0-47.0); HEMOGLOBIN 11.6 G/DL (12.0-16.0); LYMPHOCYTES % (AUTO) 34.1 % (20.0-45.0); MEAN CORPUSCULAR VOLUME 89 FL (80-99); MONOCYTES % (AUTO) 7.9 % (1.0-10.0); NEUTROPHILS % (AUTO) 56.4 % (45.0-75.0); PLATELET COUNT 307 K/UL (150-450); POTASSIUM 3.4 MMOL/L (3.5-5.1); RED BLOOD COUNT 3.89 M/UL (4.20-5.40); RED CELL DISTRIBUTION WIDTH 16.7 % (11.6-14.8); SODIUM 147 MMOL/L (136-145); WHITE BLOOD COUNT 5.1 K/UL (4.8-10.8)
--- NOTE | 2019-08-16 10:26 | Nephrology Progress Note ---
Assessment/Plan Problem List: (1) ESRD (end stage renal disease) on dialysis (2) Malnutrition (3) Anemia in CKD (chronic kidney disease) (4) Hypotension (5) Thrombocytopenia (6) Sepsis Assessment: klebsiella in blood Assessment -Early sepsis with shock. -Healthcare-associated pneumonia. -Severe protein-calorie malnutrition. -Thrombocytopenia. - End-stage renal disease. - History of hypertension. - Bradycardia. - HypoThyroid Plan Patient never received dialysis yesterday as dialysis nurse was busy and could not get to her! She is due for dialysis today. She currently has a catheter which was put in yesterday by Dr. James. Today's lab is pending. Permacath was removed on August 12 Dialysis 08/11 Transfusion as needed Patient had hematemesis meds IV as possible Surveillance blood cultures tomorrow Plan to put the permacath back in on Thursday if cultures are negative keep BP and BS in check Inflammatory markers per orders Subjective ROS Limited/Unobtainable: Yes Objective Objective Last 24 Hour Vital Signs Date Time Temp Pulse Resp B/P (MAP) Pulse Ox O2 Delivery O2 Flow Rate FiO2 08/16/19 10:00 54 24 147/80 (102) 99 08/16/19 09:00 55 08/16/19 09:00 54 26 147/80 (102) 99 08/16/19 08:54 55 16 97 40 08/16/19 08:00 58 08/16/19 08:00 56 26 152/66 (94) 96 08/16/19 08:00 Bi-pap Bi-pap Bi-pap 08/16/19 08:00 97.4 08/16/19 07:00 56 23 171/76 (107) 98 08/16/19 06:42 98 Bi-Pap 40 08/16/19 06:42 47 17 99 40 08/16/19 06:18 175/82 08/16/19 06:00 56 20 175/82 (113) 98 56 08/16/19 05:25 57 22 99 40 08/16/19 05:00 Bi-pap Bi-pap Bi-pap 08/16/19 05:00 52 16 183/71 (108) 97 52 08/16/19 04:00 97.0 53 25 168/73 (104) 96 53 08/16/19 04:00 54 08/16/19 04:00 55 08/16/19 03:27 55 20 99 40 08/16/19 03:00 60 33 174/69 (104) 98 60 08/16/19 02:00 61 26 122/71 (88) 99 08/16/19 01:34 61 18 98 40 08/16/19 01:00 59 21 153/75 (101) 100 59 08/16/19 00:49 176/84 08/16/19 00:00 60 08/16/19 00:00 97.5 62 24 166/77 (106) 97 08/16/19 00:00 55 08/16/19 00:00 Bi-pap Bi-pap Bi-pap 08/15/19 23:45 60 15 99 40 08/15/19 23:00 60 26 167/81 (109) 97 60 08/15/19 22:00 58 25 160/77 (104) 98 08/15/19 21:24 61 16 97 40 08/15/19 21:00 58 14 164/84 (110) 98 08/15/19 20:00 52 20 156/74 (101) 98 52 08/15/19 20:00 53 08/15/19 20:00 55 08/15/19 20:00 Bi-pap Bi-pap Bi-pap 08/15/19 19:40 97 Bi-Pap 40 08/15/19 19:39 53 19 97 40 08/15/19 19:00 61 19 144/71 (95) 94 08/15/19 18:17 57 22 161/80 (107) 97 08/15/19 18:15 177/82 08/15/19 18:09 63 26 177/82 (113) 97 08/15/19 18:08 176/69 08/15/19 18:00 59 19 176/69 (104) 98 08/15/19 17:15 50 20 98 40 08/15/19 17:05 52 12 152/90 (110) 98 08/15/19 17:00 51 13 163/71 (101) 98 08/15/19 16:00 59 08/15/19 16:00 97.5 54 16 159/72 (101) 99 08/15/19 16:00 Bi-pap Bi-pap Bi-pap 08/15/19 15:10 56 23 100 40 08/15/19 15:00 53 19 151/71 (97) 99 08/15/19 14:00 57 18 145/65 (91) 99 08/15/19 13:39 55 08/15/19 13:13 71 23 99 45 08/15/19 13:00 52 22 164/73 (103) 97 08/15/19 12:00 Bi-pap Bi-pap Bi-pap 08/15/19 12:00 45 08/15/19 12:00 97.5 65 28 154/83 (106) 96 08/15/19 12:00 63 08/15/19 11:11 170/70 08/15/19 11:10 55 20 159/68 (98) 99 08/15/19 11:00 73 28 170/70 (103) 97 08/15/19 10:49 164/79 08/15/19 10:46 54 19 98 35 Intake and Output 08/15/19 08/16/19 19:00 07:00 Intake Total 330.00825 ml 195 ml Output Total 0 ml Balance 330.75990 ml 195 ml IV Total 330.59229 ml 195 ml Output Urine Total 0 ml Laboratory Tests 08/16/19 09:50: White Blood Count [Pending], Red Blood Count [Pending], Hemoglobin [Pending], Hematocrit [Pending], Mean Corpuscular Volume [Pending], Mean Corpuscular Hemoglobin [Pending], Mean Corpuscular Hemoglobin Concent [Pending], Red Cell Distribution Width [Pending], Platelet Count [Pending], Mean Platelet Volume [ Pending], Neutrophils (%) (Auto) [Pending], Lymphocytes (%) (Auto) [Pending], Monocytes (%) (Auto) [Pending], Eosinophils (%) (Auto) [Pending], Basophils (%) (Auto) [Pending], Sodium Level 147H, Potassium Level 3.4L, Chloride Level 109H, Carbon Dioxide Level 27, Anion Gap 11, Blood Urea Nitrogen 42H, Creatinine 5.0H , Estimat Glomerular Filtration Rate 8.4, Glucose Level 141H, Calcium Level 9.0 , Phosphorus Level [Pending], Magnesium Level [Pending], Total Bilirubin [ Pending], Aspartate Amino Transf (AST/SGOT) [Pending], Alanine Aminotransferase (ALT/SGPT) [Pending], Alkaline Phosphatase [Pending], C-Reactive Protein, Quantitative [Pending], Pro-B-Type Natriuretic Peptide [Pending], Total Protein [Pending], Albumin [Pending], Globulin [Pending] Height (Feet): 5 Height (Inches): 4.00 Weight (Pounds): 98 General Appearance: no apparent distress EENT: other - BIPAP Cardiovascular: bradycardia Respiratory/Chest: decreased breath sounds Abdomen: soft Objective no change William Blackwood MD Aug 16, 2019 10:26
[2019-08-16 10:28] LABS: ALANINE AMINOTRANSFERASE 8 U/L (12-78); ALBUMIN 1.3 G/DL (3.4-5.0); ALBUMIN/GLOBULIN RATIO 0.3 (1.0-2.7); ALKALINE PHOSPHATASE 120 U/L (46-116); ASPARTATE AMINO TRANSFERASE 20 U/L (15-37); BILIRUBIN,TOTAL 0.5 MG/DL (0.2-1.0); PHOSPHORUS 5.1 MG/DL (2.5-4.9)
--- NOTE | 2019-08-16 10:42 | Infectious Diseases Prog Note ---
Assessment/Plan Assessment/Plan antibiotics : meropenem A 1. klebsiella sepsis s/p catheter removal 2. e.coli UTI 3. right shoulder septic arthritis with staph aureus 4. renal failure 5. thrombocytopenia improving 6. diabetes mellitus 7. hypertension 8. GI bleeding P 1. continue meropenem 1 more day 2. will follow up cultures Subjective ROS Limited/Unobtainable: Yes Allergies: Coded Allergies: VANCOMYCIN (Unverified Allergy, Unknown, 08/02/19) Objective Vital Signs Last 24 Hour Vital Signs Date Time Temp Pulse Resp B/P (MAP) Pulse Ox O2 Delivery O2 Flow Rate FiO2 08/16/19 10:00 54 24 147/80 (102) 99 08/16/19 09:00 55 08/16/19 09:00 54 26 147/80 (102) 99 08/16/19 08:54 55 16 97 40 08/16/19 08:00 58 08/16/19 08:00 56 26 152/66 (94) 96 08/16/19 08:00 Bi-pap Bi-pap Bi-pap 08/16/19 08:00 97.4 08/16/19 07:00 56 23 171/76 (107) 98 08/16/19 06:42 98 Bi-Pap 40 08/16/19 06:42 47 17 99 40 08/16/19 06:18 175/82 08/16/19 06:00 56 20 175/82 (113) 98 56 08/16/19 05:25 57 22 99 40 08/16/19 05:00 Bi-pap Bi-pap Bi-pap 08/16/19 05:00 52 16 183/71 (108) 97 52 08/16/19 04:00 97.0 53 25 168/73 (104) 96 53 08/16/19 04:00 54 08/16/19 04:00 55 08/16/19 03:27 55 20 99 40 08/16/19 03:00 60 33 174/69 (104) 98 60 08/16/19 02:00 61 26 122/71 (88) 99 08/16/19 01:34 61 18 98 40 08/16/19 01:00 59 21 153/75 (101) 100 59 08/16/19 00:49 176/84 08/16/19 00:00 60 08/16/19 00:00 97.5 62 24 166/77 (106) 97 08/16/19 00:00 55 08/16/19 00:00 Bi-pap Bi-pap Bi-pap 08/15/19 23:45 60 15 99 40 08/15/19 23:00 60 26 167/81 (109) 97 60 08/15/19 22:00 58 25 160/77 (104) 98 08/15/19 21:24 61 16 97 40 08/15/19 21:00 58 14 164/84 (110) 98 08/15/19 20:00 52 20 156/74 (101) 98 52 08/15/19 20:00 53 08/15/19 20:00 55 08/15/19 20:00 Bi-pap Bi-pap Bi-pap 08/15/19 19:40 97 Bi-Pap 40 08/15/19 19:39 53 19 97 40 08/15/19 19:00 61 19 144/71 (95) 94 08/15/19 18:17 57 22 161/80 (107) 97 08/15/19 18:15 177/82 08/15/19 18:09 63 26 177/82 (113) 97 08/15/19 18:08 176/69 08/15/19 18:00 59 19 176/69 (104) 98 08/15/19 17:15 50 20 98 40 08/15/19 17:05 52 12 152/90 (110) 98 08/15/19 17:00 51 13 163/71 (101) 98 08/15/19 16:00 59 08/15/19 16:00 97.5 54 16 159/72 (101) 99 08/15/19 16:00 Bi-pap Bi-pap Bi-pap 08/15/19 15:10 56 23 100 40 08/15/19 15:00 53 19 151/71 (97) 99 08/15/19 14:00 57 18 145/65 (91) 99 08/15/19 13:39 55 08/15/19 13:13 71 23 99 45 08/15/19 13:00 52 22 164/73 (103) 97 08/15/19 12:00 Bi-pap Bi-pap Bi-pap 08/15/19 12:00 45 08/15/19 12:00 97.5 65 28 154/83 (106) 96 08/15/19 12:00 63 08/15/19 11:11 170/70 08/15/19 11:10 55 20 159/68 (98) 99 08/15/19 11:00 73 28 170/70 (103) 97 08/15/19 10:49 164/79 08/15/19 10:46 54 19 98 35 Height (Feet): 5 Height (Inches): 4.00 Weight (Pounds): 98 HEENT: other - on bipap Respiratory/Chest: lungs clear Cardiovascular: normal rate, regular rhythm, no gallop/murmur Abdomen: soft, non tender Extremities: no edema, other - right shoulder wound clean Microbiology Date/Time Source Procedure Growth Status 08/14/19 05:10 Blood Blood Culture - Preliminary NO GROWTH AFTER 48 HOURS Resulted 08/14/19 04:55 Blood Blood Culture - Preliminary NO GROWTH AFTER 48 HOURS Resulted Laboratory Tests Test 08/16/19 09:50 White Blood Count 5.1 K/UL (4.8-10.8) Red Blood Count 3.89 M/UL (4.20-5.40) L Hemoglobin 11.6 G/DL (12.0-16.0) L Hematocrit 34.5 % (37.0-47.0) L Mean Corpuscular Volume 89 FL (80-99) Mean Corpuscular Hemoglobin 29.8 PG (27.0-31.0) Mean Corpuscular Hemoglobin Concent 33.7 G/DL (32.0-36.0) Red Cell Distribution Width 16.7 % (11.6-14.8) H Platelet Count 307 K/UL (150-450) Mean Platelet Volume 6.4 FL (6.5-10.1) L Neutrophils (%) (Auto) 56.4 % (45.0-75.0) Lymphocytes (%) (Auto) 34.1 % (20.0-45.0) Monocytes (%) (Auto) 7.9 % (1.0-10.0) Eosinophils (%) (Auto) 0.6 % (0.0-3.0) Basophils (%) (Auto) 1.0 % (0.0-2.0) Sodium Level 147 MMOL/L (136-145) H Potassium Level 3.4 MMOL/L (3.5-5.1) L Chloride Level 109 MMOL/L (98-107) H Carbon Dioxide Level 27 MMOL/L (21-32) Anion Gap 11 mmol/L (5-15) Blood Urea Nitrogen 42 mg/dL (7-18) H Creatinine 5.0 MG/DL (0.55-1.30) H Estimat Glomerular Filtration Rate 8.4 mL/min (>60) Glucose Level 141 MG/DL (74-106) H Calcium Level 9.0 MG/DL (8.5-10.1) Phosphorus Level 5.1 MG/DL (2.5-4.9) H Magnesium Level 2.0 MG/DL (1.8-2.4) Total Bilirubin 0.5 MG/DL (0.2-1.0) Aspartate Amino Transf (AST/SGOT) 20 U/L (15-37) Alanine Aminotransferase (ALT/SGPT) 8 U/L (12-78) L Alkaline Phosphatase 120 U/L (46-116) H C-Reactive Protein, Quantitative 3.9 mg/dL (0.00-0.90) H Pro-B-Type Natriuretic Peptide > 51427 pg/mL (0-125) H Total Protein 5.5 G/DL (6.4-8.2) L Albumin 1.3 G/DL (3.4-5.0) L Globulin 4.2 g/dL Albumin/Globulin Ratio 0.3 (1.0-2.7) L Current Medications Medications (Trade) Dose Ordered Sig/Javier Route PRN Reason Start Time Stop Time Status Last Admin Dose Admin Atropine Sulfate (Atropine) 1 mg Q4H PRN IVP Per rx protocol 08/13/19 08:30 09/12/19 08:29 Chlorhexidine Gluconate (Nae-Hex 2%) 1 applic DAILY@2000 TOPIC 08/15/19 20:00 09/14/19 19:59 08/15/19 20:58 Dextrose (Dextrose 50%) 50 ml Q30M PRN IV Hypoglycemia 08/11/19 10:30 09/04/19 17:44 08/15/19 05:58 Dextrose/Sodium Chloride 1,000 ml @ 20 mls/hr Q24H IV 08/15/19 10:30 09/12/19 10:29 08/15/19 10:25 Diphenhydramine HCl (Benadryl) 50 mg Q4H PRN IVP Itching 08/09/19 14:30 09/08/19 14:29 08/13/19 02:39 Enoxaparin Sodium (Lovenox) 30 mg DAILY SUBQ 08/16/19 09:00 09/15/19 08:59 08/16/19 08:40 Epoetin Thomas (Epoetin Thomas(ESRD on dialysis)) 4,000 unit THU- SUBQ 08/12/19 21:00 09/11/19 20:59 08/15/19 20:59 Hydralazine HCl (Apresoline) 25 mg Q6H PRN IV For High Blood Pressure 08/14/19 01:45 09/13/19 01:44 08/15/19 18:15 Levothyroxine Sodium (Synthroid) 75 mcg DAILY IV 08/13/19 09:00 09/12/19 08:59 08/16/19 08:40 Meropenem 500 mg/ Sodium Chloride 55 ml @ 110 mls/hr EVERY 12 HOURS IVPB 08/13/19 21:00 08/18/19 20:59 08/16/19 08:39 Metoclopramide HCl (Reglan) 5 mg Q8H PRN IVP Nausea & Vomiting 08/09/19 12:39 09/08/19 12:38 Nitroglycerin (Nitro-Bid) 1 inch Q6HR TOPIC 08/09/19 12:39 09/08/19 12:38 08/16/19 06:18 Pantoprazole (Protonix) 40 mg EVERY 12 HOURS IVP 08/09/19 21:00 09/08/19 10:44 08/16/19 08:39 Melissa Solares MD Aug 16, 2019 10:42
[2019-08-16] MEDS: D5NS 1,000 ML IV SCH (12:26)
[2019-08-16] MEDS ORDERED: Lidocaine 1% Plain 30 ml INJ PRN (13:00)
[2019-08-16] MEDS ORDERED: Heparin1,000 units/500ml Premix(Conc:2 units/ml) IV PRN (13:00)
[2019-08-16] MEDS: NS IVPB SCH (14:00)
[2019-08-16] MEDS: MICAFUNGIN IVPB SCH (14:00)
--- NOTE | 2019-08-16 15:18 | General Progress Note ---
Assessment/Plan Problem List: (1) Failure to thrive (0-17) ICD Codes: R62.51 - Failure to thrive (0-17) SNOMED: 765053827 (2) Hypertensive kidney disease ICD Codes: I12.9 - Hypertensive chronic kidney disease with stage 1 through stage 4 chronic kidney disease, or unspecified chronic kidney disease SNOMED: 34245811 (3) Pneumonia ICD Codes: J18.9 - Pneumonia, unspecified organism SNOMED: 193735124 Qualifiers: Qualified Codes: J18.9 - Pneumonia, unspecified organism (4) ESRD (end stage renal disease) ICD Codes: N18.6 - End stage renal disease SNOMED: 55798281 (5) Septic arthritis ICD Codes: M00.9 - Pyogenic arthritis, unspecified SNOMED: 090766662 (6) Thrombocytopenia ICD Codes: D69.6 - Thrombocytopenia, unspecified SNOMED: 818305147 (7) Hypotension ICD Codes: I95.9 - Hypotension, unspecified SNOMED: 83513344 Qualifiers: Qualified Codes: I95.3 - Hypotension of hemodialysis (8) Malnutrition ICD Codes: E46 - Unspecified protein-calorie malnutrition SNOMED: 74958606 Status: stable, not improved, unchanged, deteriorating Assessment/Plan: thyroid replacement cont icu care o2/bipap prn resp rx/suctioning monitor plts and h/h- better iv PPI iv abx HD today bailey for urinary retention iv bp rx ?try ngt if hr better- plts now improved critical and guarded gt when stable pt needs emergent perm cath placement for HD. message left with family but no call back yet. plan to replace catheter d/w family this weekend and they wanted to proceed with replacement Subjective ROS Limited/Unobtainable: Yes Constitutional: Reports: malaise, weakness HEENT: Reports: no symptoms Cardiovascular: Reports: no symptoms Respiratory: Reports: no symptoms Gastrointestinal/Abdominal: Reports: difficulty swallowing Genitourinary: Reports: no symptoms Neurologic/Psychiatric: Reports: pre-existing deficit Endocrine: Reports: no symptoms Hematologic/Lymphatic: Reports: no symptoms Allergies: Coded Allergies: VANCOMYCIN (Unverified Allergy, Unknown, 08/02/19) All Systems: reviewed and negative except above Subjective less bradycardic. on bipap. no hemoptysis. no fevers. d/w night rn. no events. labs reviewed. no fevers. still unable top take po. lethargic had 1 hr of dialysis before catheter clotted. now replaced. platelets now normal Objective Last 24 Hour Vital Signs Date Time Temp Pulse Resp B/P (MAP) Pulse Ox O2 Delivery O2 Flow Rate FiO2 08/16/19 14:00 48 21 151/71 (97) 98 08/16/19 13:00 60 21 147/85 (105) 99 08/16/19 12:40 64 22 97 30 08/16/19 12:35 56 08/16/19 12:26 142/82 08/16/19 12:00 Bi-pap Bi-pap Bi-pap 08/16/19 12:00 30 08/16/19 12:00 63 13 141/80 (100) 100 08/16/19 11:00 69 20 118/73 (88) 99 08/16/19 10:44 58 19 98 30 08/16/19 10:00 54 24 147/80 (102) 99 08/16/19 09:00 54 26 147/80 (102) 99 08/16/19 08:54 55 16 97 30 08/16/19 08:00 58 08/16/19 08:00 56 26 152/66 (94) 96 08/16/19 08:00 Bi-pap Bi-pap Bi-pap 08/16/19 08:00 30 08/16/19 08:00 97.4 08/16/19 07:00 56 23 171/76 (107) 98 08/16/19 06:42 98 Bi-Pap 40 08/16/19 06:42 47 17 99 30 08/16/19 06:18 175/82 08/16/19 06:00 56 20 175/82 (113) 98 56 08/16/19 05:25 57 22 99 40 08/16/19 05:00 Bi-pap Bi-pap Bi-pap 08/16/19 05:00 52 16 183/71 (108) 97 52 08/16/19 04:00 97.0 53 25 168/73 (104) 96 53 08/16/19 04:00 54 08/16/19 04:00 55 08/16/19 03:27 55 20 99 40 08/16/19 03:00 60 33 174/69 (104) 98 60 08/16/19 02:00 61 26 122/71 (88) 99 08/16/19 01:34 61 18 98 40 08/16/19 01:00 59 21 153/75 (101) 100 59 08/16/19 00:49 176/84 08/16/19 00:00 60 08/16/19 00:00 97.5 62 24 166/77 (106) 97 08/16/19 00:00 55 08/16/19 00:00 Bi-pap Bi-pap Bi-pap 08/15/19 23:45 60 15 99 40 08/15/19 23:00 60 26 167/81 (109) 97 60 08/15/19 22:00 58 25 160/77 (104) 98 08/15/19 21:24 61 16 97 40 08/15/19 21:00 58 14 164/84 (110) 98 08/15/19 20:00 52 20 156/74 (101) 98 52 08/15/19 20:00 53 08/15/19 20:00 55 08/15/19 20:00 Bi-pap Bi-pap Bi-pap 08/15/19 19:40 97 Bi-Pap 40 08/15/19 19:39 53 19 97 40 08/15/19 19:00 61 19 144/71 (95) 94 08/15/19 18:17 57 22 161/80 (107) 97 08/15/19 18:15 177/82 08/15/19 18:09 63 26 177/82 (113) 97 08/15/19 18:08 176/69 08/15/19 18:00 59 19 176/69 (104) 98 08/15/19 17:15 50 20 98 40 08/15/19 17:05 52 12 152/90 (110) 98 08/15/19 17:00 51 13 163/71 (101) 98 08/15/19 16:00 59 08/15/19 16:00 97.5 54 16 159/72 (101) 99 08/15/19 16:00 Bi-pap Bi-pap Bi-pap 08/15/19 15:10 56 23 100 40 Intake and Output 08/15/19 08/16/19 19:00 07:00 Intake Total 330.64130 ml 215 ml Output Total 0 ml Balance 330.43443 ml 215 ml IV Total 330.66721 ml 215 ml Output Urine Total 0 ml Laboratory Tests 08/16/19 09:50: White Blood Count 5.1, Red Blood Count 3.89L, Hemoglobin 11.6L, Hematocrit 34.5L , Mean Corpuscular Volume 89, Mean Corpuscular Hemoglobin 29.8, Mean Corpuscular Hemoglobin Concent 33.7, Red Cell Distribution Width 16.7H, Platelet Count 307, Mean Platelet Volume 6.4L, Neutrophils (%) (Auto) 56.4, Lymphocytes (%) (Auto) 34.1, Monocytes (%) (Auto) 7.9, Eosinophils (%) (Auto) 0.6, Basophils (%) (Auto) 1.0, Sodium Level 147H, Potassium Level 3.4L, Chloride Level 109H, Carbon Dioxide Level 27, Anion Gap 11, Blood Urea Nitrogen 42H, Creatinine 5.0H, Estimat Glomerular Filtration Rate 8.4, Glucose Level 141H , Calcium Level 9.0, Phosphorus Level 5.1H, Magnesium Level 2.0, Total Bilirubin 0.5, Aspartate Amino Transf (AST/SGOT) 20, Alanine Aminotransferase ( ALT/SGPT) 8L, Alkaline Phosphatase 120H, C-Reactive Protein, Quantitative 3.9H, Pro-B-Type Natriuretic Peptide > 37826B, Total Protein 5.5L, Albumin 1.3L, Globulin 4.2, Albumin/Globulin Ratio 0.3L Height (Feet): 5 Height (Inches): 4.00 Weight (Pounds): 98 Objective General Appearance: WD/WN, awake/moaning. on bipap Neck: supple Cardiovascular: normal rate Respiratory/Chest: rhonchi - bilaterally Abdomen: normal bowel sounds, non tender, soft, no organomegaly Edema: no edema noted Arm (L), no edema noted Arm (R), no edema noted Leg (L), no edema noted Leg (R), no edema noted Pedal (L), no edema noted Pedal (R), no edema noted Generalized Neurologic: disoriented, aphasia Nate Beltran MD Aug 16, 2019 15:18
--- NOTE | 2019-08-16 15:30 | Diagnostic Imaging Report ---
Indication: Right shoulder pain COMPARISON: None Findings: 3 views of the right shoulder were obtained. The humeral head appears absent and eroded. The humeral neck margin appears ill-defined. There is an anterior dislocation of the glenohumeral joint as well. The bones are osteopenic. IMPRESSION: Severe erosion of the humeral head with anterior dislocation of the glenohumeral joint. Consider neuropathic disease, malignancy and infection.
--- NOTE | 2019-08-16 15:31 | Diagnostic Imaging Report ---
Indication: Status post right femoral Curt catheter replacement Comparison: None Single view of the abdomen obtained Findings: There is a right femoral Curt catheter is been placed. The tip is projected over the right side of the mid lumbar spine within the expected location of the IVC. IMPRESSION: Right femoral Curt catheter cleared for use
--- NOTE | 2019-08-16 16:05 | Diagnostic Imaging Report ---
Indication: Dyspnea Comparison: 08/14/2019 A single view chest radiograph was obtained. Findings: Left hemithorax is completely opacified. This is associated with volume loss and shifting of the heart and trachea to the left. Erosion of the right humeral head and dislocation of the glenohumeral joint noted. Bones are osteopenic. IMPRESSION: Opacified left hemithorax due to atelectasis. Superimposed mass or pleural fluid not excludable. No significant change from the prior exam
--- NOTE | 2019-08-16 16:08 | Surgery Progress Note ---
Surgery Progress Note Subjective Procedure Performed Right Femoral Temporary Hemodialysis catheter Insertion Additional Comments Patient denied to receive dialysis is planned for yesterday unfortunately as dialysis nurse was too busy. Labs noted. Ill-appearing. Unfortunately given plan for urgent dialysis and instructions and plan given line was not heparinized and plan for dialysis within an hour unfortunately since now line is clotted. Line to be replaced at bedside by radiology with wires. Objective Last 24 Hour Vital Signs Date Time Temp Pulse Resp B/P (MAP) Pulse Ox O2 Delivery O2 Flow Rate FiO2 08/16/19 15:18 56 16 99 30 08/16/19 14:00 48 21 151/71 (97) 98 08/16/19 13:00 60 21 147/85 (105) 99 08/16/19 12:40 64 22 97 30 08/16/19 12:35 56 08/16/19 12:26 142/82 08/16/19 12:00 Bi-pap Bi-pap Bi-pap 08/16/19 12:00 30 08/16/19 12:00 63 13 141/80 (100) 100 08/16/19 11:00 69 20 118/73 (88) 99 08/16/19 10:44 58 19 98 30 08/16/19 10:00 54 24 147/80 (102) 99 08/16/19 09:00 54 26 147/80 (102) 99 08/16/19 08:54 55 16 97 30 08/16/19 08:00 58 08/16/19 08:00 56 26 152/66 (94) 96 08/16/19 08:00 Bi-pap Bi-pap Bi-pap 08/16/19 08:00 30 08/16/19 08:00 97.4 08/16/19 07:00 56 23 171/76 (107) 98 08/16/19 06:42 98 Bi-Pap 40 08/16/19 06:42 47 17 99 30 08/16/19 06:18 175/82 08/16/19 06:00 56 20 175/82 (113) 98 56 08/16/19 05:25 57 22 99 40 08/16/19 05:00 Bi-pap Bi-pap Bi-pap 08/16/19 05:00 52 16 183/71 (108) 97 52 08/16/19 04:00 97.0 53 25 168/73 (104) 96 53 08/16/19 04:00 54 08/16/19 04:00 55 08/16/19 03:27 55 20 99 40 08/16/19 03:00 60 33 174/69 (104) 98 60 08/16/19 02:00 61 26 122/71 (88) 99 08/16/19 01:34 61 18 98 40 08/16/19 01:00 59 21 153/75 (101) 100 59 08/16/19 00:49 176/84 08/16/19 00:00 60 08/16/19 00:00 97.5 62 24 166/77 (106) 97 08/16/19 00:00 55 08/16/19 00:00 Bi-pap Bi-pap Bi-pap 08/15/19 23:45 60 15 99 40 08/15/19 23:00 60 26 167/81 (109) 97 60 08/15/19 22:00 58 25 160/77 (104) 98 08/15/19 21:24 61 16 97 40 08/15/19 21:00 58 14 164/84 (110) 98 08/15/19 20:00 52 20 156/74 (101) 98 52 08/15/19 20:00 53 08/15/19 20:00 55 08/15/19 20:00 Bi-pap Bi-pap Bi-pap 08/15/19 19:40 97 Bi-Pap 40 08/15/19 19:39 53 19 97 40 08/15/19 19:00 61 19 144/71 (95) 94 08/15/19 18:17 57 22 161/80 (107) 97 08/15/19 18:15 177/82 08/15/19 18:09 63 26 177/82 (113) 97 08/15/19 18:08 176/69 08/15/19 18:00 59 19 176/69 (104) 98 08/15/19 17:15 50 20 98 40 08/15/19 17:05 52 12 152/90 (110) 98 08/15/19 17:00 51 13 163/71 (101) 98 I&O Intake and Output 08/15/19 08/16/19 19:00 07:00 Intake Total 330.83187 ml 215 ml Output Total 0 ml Balance 330.06859 ml 215 ml IV Total 330.96159 ml 215 ml Output Urine Total 0 ml Dressing: dry Wound: clean Cardiovascular: RSR Respiratory: clear Abdomen: soft, non-tender, present bowel sounds Extremities: no cyanosis, other Laboratory Tests Test 08/16/19 09:50 White Blood Count 5.1 K/UL (4.8-10.8) Red Blood Count 3.89 M/UL (4.20-5.40) L Hemoglobin 11.6 G/DL (12.0-16.0) L Hematocrit 34.5 % (37.0-47.0) L Mean Corpuscular Volume 89 FL (80-99) Mean Corpuscular Hemoglobin 29.8 PG (27.0-31.0) Mean Corpuscular Hemoglobin Concent 33.7 G/DL (32.0-36.0) Red Cell Distribution Width 16.7 % (11.6-14.8) H Platelet Count 307 K/UL (150-450) Mean Platelet Volume 6.4 FL (6.5-10.1) L Neutrophils (%) (Auto) 56.4 % (45.0-75.0) Lymphocytes (%) (Auto) 34.1 % (20.0-45.0) Monocytes (%) (Auto) 7.9 % (1.0-10.0) Eosinophils (%) (Auto) 0.6 % (0.0-3.0) Basophils (%) (Auto) 1.0 % (0.0-2.0) Sodium Level 147 MMOL/L (136-145) H Potassium Level 3.4 MMOL/L (3.5-5.1) L Chloride Level 109 MMOL/L (98-107) H Carbon Dioxide Level 27 MMOL/L (21-32) Anion Gap 11 mmol/L (5-15) Blood Urea Nitrogen 42 mg/dL (7-18) H Creatinine 5.0 MG/DL (0.55-1.30) H Estimat Glomerular Filtration Rate 8.4 mL/min (>60) Glucose Level 141 MG/DL (74-106) H Calcium Level 9.0 MG/DL (8.5-10.1) Phosphorus Level 5.1 MG/DL (2.5-4.9) H Magnesium Level 2.0 MG/DL (1.8-2.4) Total Bilirubin 0.5 MG/DL (0.2-1.0) Aspartate Amino Transf (AST/SGOT) 20 U/L (15-37) Alanine Aminotransferase (ALT/SGPT) 8 U/L (12-78) L Alkaline Phosphatase 120 U/L (46-116) H C-Reactive Protein, Quantitative 3.9 mg/dL (0.00-0.90) H Pro-B-Type Natriuretic Peptide > 99142 pg/mL (0-125) H Total Protein 5.5 G/DL (6.4-8.2) L Albumin 1.3 G/DL (3.4-5.0) L Globulin 4.2 g/dL Albumin/Globulin Ratio 0.3 (1.0-2.7) L Assessment Post-op Diagnosis same Plan Problems: (1) Malnutrition Assessment & Plan: DAILY ESTIMATED NEEDS: Needs based on ESRD+ HD, underweight, wound/ 39.5kg 35-40 kcals/kg 2738-2823 total kcals 1.25-1.8 g protein/kg 49-71 g total protein 20-22 mL/kg 790-869 total fluid mLs NUTRITION DIAGNOSIS: * Increased kcal and protein needs r/t underweight status, HD needs, wuond healing as evidenced by pt is underweight per guidelines, ESRD, on HD, admitted non-blanching erythema wounds @ BL heels and sacrum * Swallowing difficulty R/T dysphagia as evidenced by MACHINIST JOB SETTER recommends temporary nonoral feeding at this time, s/p NGT insertion, on NGT feeding-> now s/p self removal, NPO. CURRENT TF:NPO PO DIET RECOMMENDATIONS: WHEN SAFE FOR ORAL DIET -> renal/ texture per MACHINIST JOB SETTER ENTERAL NUTRITION RECOMMENDATIONS: W/ GI access: Nepro @ 35ml/hr x 22 hrs to provide 770ml, 1386kcal, 62g prot, 560ml free water * W/ GI access, resume TF on Nepro * Initiate Nepro @ 15ml/hr x 6 hrs, advance 10ml q 4-6 hrs as tolerated to goal rate. * Hold 1 hour before and after Synthroid med * HOB over 30 degrees/ water flush per MD. ADDITIONAL RECOMMENDATIONS: 1) Calibrated bed scale wt for accurate CBW -> daily wt monitoring Per HD record: dry wt on 07/30=39.5kg (87lbs) 2) Wound care: (W/ GI access) add Nephorivte x 1 + Balta BID 3) Monitor NPO status: without GI access at this time, s/p pulling out NGT 4) Monitor for hypoglycemia while NPO 5) Monitor for continuity of HD (2) Septic arthritis Assessment & Plan: Pt presented on admission with generalized scaly rash . pt noted to be restless and scratching at skin. Bleeding from oral mucosa noted. Joint deformity noted to R shoulder. Surgical incision approximated with 11 sutures. Erythema but no exudate,or elevation in skin temp at site of incision. Historical incision R hip that is tunneled.Small amt seropurulent exudate noted. Periwound is erythematous,but no elevation in skin temp noted. No odor noted. Non-blanching erythema noted to sacrum. Perianal area is erythematous and excoriated. L heel is boggy with non-blanching erythema. R heel is soft with non-blanching erythema. No evidence of skin breakdown to all other bony prominences. Tx.plan: Cover R shoulder with Drsg and change daily and prn. Cleanse R hip wound with Saline. Apply Therahoney.Apply Cavilon Skin Barrier periwound. Cover with Optifoam drsg. Change every 3 days and prn. Apply Moisture Barrier Paste to perianal area and buttocks. Cover Sacrum with Optifoam drsg. Change every 3 days and prn. Apply Cavilon Skin Barrier to both heels. Cover each heel with Optifoam drsg. Change every 7 days and prn. APM/ELVIA Mattress overlay. Reposition at least every 2hours or as tolerated. Off-load heels with pillow. HD cath necessary HD as renal likely will need intubation (3) Wound, open, hip or thigh with complication Assessment & Plan: slow healing will need nutritional optimization difficult ng tube peg when stable sutures removed from right shoulder comfortable (4) Abscess of right hip (5) possible septic arthritis Camilo James Aug 16, 2019 16:08
--- NOTE | 2019-08-16 17:42 | General Progress Note ---
Assessment/Plan Status: stable, not improved, unchanged, deteriorating Assessment/Plan: Assessment - Resp failure --> BIPAP - thrombocytopenia --> improved - Renal failure - aspiration risk - anemia - bradycardia Recommendations - Still not safe for NGT placement - Consider heme opinion re low platelets - IVF - can place PEG once stablized or if intubated - consider TPN with HD while clinical status is stabilized - alternatively, can re-address hospice Subjective Allergies: Coded Allergies: VANCOMYCIN (Unverified Allergy, Unknown, 08/02/19) Subjective above noted seen in ICU d/w RN still on BIPAP HD to start today Objective Last 24 Hour Vital Signs Date Time Temp Pulse Resp B/P (MAP) Pulse Ox O2 Delivery O2 Flow Rate FiO2 08/16/19 17:20 128/75 08/16/19 17:00 56 16 177/73 (107) 98 08/16/19 16:52 58 16 98 30 08/16/19 16:00 57 17 143/72 (95) 98 08/16/19 16:00 Bi-pap Bi-pap Bi-pap 08/16/19 16:00 64 08/16/19 16:00 98.1 08/16/19 15:18 56 16 99 30 08/16/19 15:00 59 22 163/90 (114) 91 08/16/19 14:00 48 21 151/71 (97) 98 08/16/19 13:00 60 21 147/85 (105) 99 08/16/19 12:40 64 22 97 30 08/16/19 12:35 56 08/16/19 12:26 142/82 08/16/19 12:00 Bi-pap Bi-pap Bi-pap 08/16/19 12:00 30 08/16/19 12:00 63 13 141/80 (100) 100 08/16/19 11:00 69 20 118/73 (88) 99 08/16/19 10:44 58 19 98 30 08/16/19 10:00 54 24 147/80 (102) 99 08/16/19 09:00 54 26 147/80 (102) 99 08/16/19 08:54 55 16 97 30 08/16/19 08:00 58 08/16/19 08:00 56 26 152/66 (94) 96 08/16/19 08:00 Bi-pap Bi-pap Bi-pap 08/16/19 08:00 30 08/16/19 08:00 97.4 08/16/19 07:00 56 23 171/76 (107) 98 08/16/19 06:42 98 Bi-Pap 40 08/16/19 06:42 47 17 99 30 08/16/19 06:18 175/82 08/16/19 06:00 56 20 175/82 (113) 98 56 08/16/19 05:25 57 22 99 40 08/16/19 05:00 Bi-pap Bi-pap Bi-pap 08/16/19 05:00 52 16 183/71 (108) 97 52 08/16/19 04:00 97.0 53 25 168/73 (104) 96 53 08/16/19 04:00 54 08/16/19 04:00 55 08/16/19 03:27 55 20 99 40 08/16/19 03:00 60 33 174/69 (104) 98 60 08/16/19 02:00 61 26 122/71 (88) 99 08/16/19 01:34 61 18 98 40 08/16/19 01:00 59 21 153/75 (101) 100 59 08/16/19 00:49 176/84 08/16/19 00:00 60 08/16/19 00:00 97.5 62 24 166/77 (106) 97 08/16/19 00:00 55 08/16/19 00:00 Bi-pap Bi-pap Bi-pap 08/15/19 23:45 60 15 99 40 08/15/19 23:00 60 26 167/81 (109) 97 60 08/15/19 22:00 58 25 160/77 (104) 98 08/15/19 21:24 61 16 97 40 08/15/19 21:00 58 14 164/84 (110) 98 08/15/19 20:00 52 20 156/74 (101) 98 52 08/15/19 20:00 53 08/15/19 20:00 55 08/15/19 20:00 Bi-pap Bi-pap Bi-pap 08/15/19 19:40 97 Bi-Pap 40 08/15/19 19:39 53 19 97 40 08/15/19 19:00 61 19 144/71 (95) 94 08/15/19 18:17 57 22 161/80 (107) 97 08/15/19 18:15 177/82 08/15/19 18:09 63 26 177/82 (113) 97 08/15/19 18:08 176/69 08/15/19 18:00 59 19 176/69 (104) 98 Intake and Output 08/15/19 08/16/19 19:00 07:00 Intake Total 330.17332 ml 215 ml Output Total 0 ml Balance 330.72962 ml 215 ml IV Total 330.97094 ml 215 ml Output Urine Total 0 ml Laboratory Tests 08/16/19 09:50: White Blood Count 5.1, Red Blood Count 3.89L, Hemoglobin 11.6L, Hematocrit 34.5L , Mean Corpuscular Volume 89, Mean Corpuscular Hemoglobin 29.8, Mean Corpuscular Hemoglobin Concent 33.7, Red Cell Distribution Width 16.7H, Platelet Count 307, Mean Platelet Volume 6.4L, Neutrophils (%) (Auto) 56.4, Lymphocytes (%) (Auto) 34.1, Monocytes (%) (Auto) 7.9, Eosinophils (%) (Auto) 0.6, Basophils (%) (Auto) 1.0, Sodium Level 147H, Potassium Level 3.4L, Chloride Level 109H, Carbon Dioxide Level 27, Anion Gap 11, Blood Urea Nitrogen 42H, Creatinine 5.0H, Estimat Glomerular Filtration Rate 8.4, Glucose Level 141H , Calcium Level 9.0, Phosphorus Level 5.1H, Magnesium Level 2.0, Total Bilirubin 0.5, Aspartate Amino Transf (AST/SGOT) 20, Alanine Aminotransferase ( ALT/SGPT) 8L, Alkaline Phosphatase 120H, C-Reactive Protein, Quantitative 3.9H, Pro-B-Type Natriuretic Peptide > 80746Q, Total Protein 5.5L, Albumin 1.3L, Globulin 4.2, Albumin/Globulin Ratio 0.3L Height (Feet): 5 Height (Inches): 4.00 Weight (Pounds): 98 Objective Debilitated frail woman NCAT (+) BIPAP supple scattered ronchi RR abd soft ND NT no edema Cristy Elizondo MD Aug 16, 2019 17:42
--- NOTE | 2019-08-16 18:11 | General Progress Note ---
Assessment/Plan Status: stable, not improved, unchanged, deteriorating Assessment/Plan: Assessment - Resp failure --> BIPAP - thrombocytopenia --> improved - Renal failure - aspiration risk - anemia - bradycardia Recommendations - Still not safe for NGT placement - Consider heme opinion re low platelets - IVF - can place PEG once stablized or if intubated - consider TPN with HD while clinical status is stabilized - alternatively, can re-address hospice Subjective Allergies: Coded Allergies: VANCOMYCIN (Unverified Allergy, Unknown, 08/02/19) Subjective This is an addendum to my prior progress note d/w daughter, Liz Rodriguez, at length re nutrition issues son is in [place] - she will call him to make a family decision at this point patient needs to be intubated to undergo PEG placement daughter understands patient may not get off of vent and go onto permanent trach option of return to hospice also offered daughter will discuss with brother and get back to me by tomorrow. If family decide on PEG, can intubate and place PEG am. Objective Last 24 Hour Vital Signs Date Time Temp Pulse Resp B/P (MAP) Pulse Ox O2 Delivery O2 Flow Rate FiO2 08/16/19 17:20 128/75 08/16/19 17:00 56 16 177/73 (107) 98 08/16/19 16:52 58 16 98 30 08/16/19 16:00 57 17 143/72 (95) 98 08/16/19 16:00 Bi-pap Bi-pap Bi-pap 08/16/19 16:00 64 08/16/19 16:00 98.1 08/16/19 15:18 56 16 99 30 08/16/19 15:00 59 22 163/90 (114) 91 08/16/19 14:00 48 21 151/71 (97) 98 08/16/19 13:00 60 21 147/85 (105) 99 08/16/19 12:40 64 22 97 30 08/16/19 12:35 56 08/16/19 12:26 142/82 08/16/19 12:00 Bi-pap Bi-pap Bi-pap 08/16/19 12:00 30 08/16/19 12:00 63 13 141/80 (100) 100 08/16/19 11:00 69 20 118/73 (88) 99 08/16/19 10:44 58 19 98 30 08/16/19 10:00 54 24 147/80 (102) 99 08/16/19 09:00 54 26 147/80 (102) 99 08/16/19 08:54 55 16 97 30 08/16/19 08:00 58 08/16/19 08:00 56 26 152/66 (94) 96 08/16/19 08:00 Bi-pap Bi-pap Bi-pap 08/16/19 08:00 30 08/16/19 08:00 97.4 08/16/19 07:00 56 23 171/76 (107) 98 08/16/19 06:42 98 Bi-Pap 40 08/16/19 06:42 47 17 99 30 08/16/19 06:18 175/82 08/16/19 06:00 56 20 175/82 (113) 98 56 08/16/19 05:25 57 22 99 40 08/16/19 05:00 Bi-pap Bi-pap Bi-pap 08/16/19 05:00 52 16 183/71 (108) 97 52 08/16/19 04:00 97.0 53 25 168/73 (104) 96 53 08/16/19 04:00 54 08/16/19 04:00 55 08/16/19 03:27 55 20 99 40 08/16/19 03:00 60 33 174/69 (104) 98 60 08/16/19 02:00 61 26 122/71 (88) 99 08/16/19 01:34 61 18 98 40 08/16/19 01:00 59 21 153/75 (101) 100 59 08/16/19 00:49 176/84 08/16/19 00:00 60 08/16/19 00:00 97.5 62 24 166/77 (106) 97 08/16/19 00:00 55 08/16/19 00:00 Bi-pap Bi-pap Bi-pap 08/15/19 23:45 60 15 99 40 08/15/19 23:00 60 26 167/81 (109) 97 60 08/15/19 22:00 58 25 160/77 (104) 98 08/15/19 21:24 61 16 97 40 08/15/19 21:00 58 14 164/84 (110) 98 08/15/19 20:00 52 20 156/74 (101) 98 52 08/15/19 20:00 53 08/15/19 20:00 55 08/15/19 20:00 Bi-pap Bi-pap Bi-pap 08/15/19 19:40 97 Bi-Pap 40 08/15/19 19:39 53 19 97 40 08/15/19 19:00 61 19 144/71 (95) 94 08/15/19 18:17 57 22 161/80 (107) 97 08/15/19 18:15 177/82 08/15/19 18:09 63 26 177/82 (113) 97 08/15/19 18:08 176/69 Intake and Output 08/15/19 08/16/19 19:00 07:00 Intake Total 330.70647 ml 215 ml Output Total 0 ml Balance 330.50384 ml 215 ml IV Total 330.57457 ml 215 ml Output Urine Total 0 ml Laboratory Tests 08/16/19 09:50: White Blood Count 5.1, Red Blood Count 3.89L, Hemoglobin 11.6L, Hematocrit 34.5L , Mean Corpuscular Volume 89, Mean Corpuscular Hemoglobin 29.8, Mean Corpuscular Hemoglobin Concent 33.7, Red Cell Distribution Width 16.7H, Platelet Count 307, Mean Platelet Volume 6.4L, Neutrophils (%) (Auto) 56.4, Lymphocytes (%) (Auto) 34.1, Monocytes (%) (Auto) 7.9, Eosinophils (%) (Auto) 0.6, Basophils (%) (Auto) 1.0, Sodium Level 147H, Potassium Level 3.4L, Chloride Level 109H, Carbon Dioxide Level 27, Anion Gap 11, Blood Urea Nitrogen 42H, Creatinine 5.0H, Estimat Glomerular Filtration Rate 8.4, Glucose Level 141H , Calcium Level 9.0, Phosphorus Level 5.1H, Magnesium Level 2.0, Total Bilirubin 0.5, Aspartate Amino Transf (AST/SGOT) 20, Alanine Aminotransferase ( ALT/SGPT) 8L, Alkaline Phosphatase 120H, C-Reactive Protein, Quantitative 3.9H, Pro-B-Type Natriuretic Peptide > 31265Q, Total Protein 5.5L, Albumin 1.3L, Globulin 4.2, Albumin/Globulin Ratio 0.3L Height (Feet): 5 Height (Inches): 4.00 Weight (Pounds): 98 Objective Debilitated frail woman NCAT (+) BIPAP supple scattered elidachi RR abd soft ND NT no edema Cristy Elizondo MD Aug 16, 2019 18:11
[2019-08-16] MEDS ORDERED: Phytonadione 10 mg/mL 1ml amp SUBQ SCH (18:16)
[2019-08-16] MEDS: Dyna-Hex 2% Top Sol 2oz TOPIC SCH (21:34)
[2019-08-16 21:41] LABS: INR 1.2 (0.9-1.1)
[2019-08-17] VITALS (24 sets, daily range): BP systolic 143–181; BP diastolic 65–142
[2019-08-17] MEDS: Nitroglycerin 2% oint pkt TOPIC SCH ×4 (00:16→17:33)
[2019-08-17 04:48] LABS: BASOPHILS % (AUTO) 1.6 % (0.0-2.0); EOSINOPHILS % (AUTO) 0.6 % (0.0-3.0); HEMATOCRIT 31.8 % (37.0-47.0); HEMOGLOBIN 10.6 G/DL (12.0-16.0); LYMPHOCYTES % (AUTO) 51.2 % (20.0-45.0); MEAN CORPUSCULAR VOLUME 90 FL (80-99); NEUTROPHILS % (AUTO) 37.7 % (45.0-75.0); PLATELET COUNT 292 K/UL (150-450); RED BLOOD COUNT 3.53 M/UL (4.20-5.40); RED CELL DISTRIBUTION WIDTH 17.8 % (11.6-14.8); WHITE BLOOD COUNT 5.7 K/UL (4.8-10.8)
[2019-08-17 05:07] LABS: INR 1.2 (0.9-1.1)
[2019-08-17 05:25] LABS: ALANINE AMINOTRANSFERASE < 6 U/L (12-78); ALBUMIN 1.3 G/DL (3.4-5.0); ALBUMIN/GLOBULIN RATIO 0.3 (1.0-2.7); ALKALINE PHOSPHATASE 113 U/L (46-116); ANION GAP 9 mmol/L (5-15); ASPARTATE AMINO TRANSFERASE 19 U/L (15-37); BILIRUBIN,TOTAL 0.5 MG/DL (0.2-1.0); BLOOD UREA NITROGEN 39 mg/dL (7-18); CALCIUM 8.9 MG/DL (8.5-10.1); CARBON DIOXIDE 28 MMOL/L (21-32); CHLORIDE 109 MMOL/L (98-107); CREATININE 4.7 MG/DL (0.55-1.30); POTASSIUM 3.5 MMOL/L (3.5-5.1); SODIUM 145 MMOL/L (136-145)
--- NOTE | 2019-08-17 07:00 | Progress Note ---
DATE: 08/16/2019 CARDIOLOGY PROGRESS NOTE SUBJECTIVE: The patient remains on BiPAP support. Blood pressure parameters remained stable. She remains with sinus bradycardia. No pauses. Discussed with Dr. Elizondo with regard to plans for PEG for adequate nutrition. OBJECTIVE: VITAL SIGNS: Blood pressure 154/85, pulse 82, respirations 29, afebrile, heart rate ranging from 56 to 82. LUNGS: Bilateral breath sounds. HEART: Regular rhythm and rate. Normal S1, S2 with no new murmur. ABDOMEN: Soft. EXTREMITIES: There is no edema. LABORATORY DATA: White count 5, hemoglobin 11.6, and platelets 307,000. Sodium 147, potassium 3.4, bicarb 27, BUN 42, and creatinine 5. INR 1.2. IMPRESSION: 1. Dysphagia. 2. Severe protein-calorie malnutrition, resolved. 3. Thrombocytopenia. 4. Anemia of chronic kidney disease. 5. End-stage renal disease. 6. Asymptomatic sinus bradycardia. 7. Hypertensive heart disease. 8. Chronic diastolic congestive heart failure. 9. Dehydration. 10. Hypernatremia. PLAN: 1. BiPAP support as needed and hemodialysis with ultrafiltration per schedule. 2. Antimicrobials. 3. Respiratory hygiene. 4. Atropine at bedside. 5. Stable for endoscopy and PEG placement with minimally increased cardiovascular risk; however, she does remain at increased risk for respiratory failure requiring intubation and mechanical ventilation. Abel Stubbs M.D. DR: Layton JOB#: [id number] CC:
[2019-08-17] MEDS ORDERED: Succinylcholine 20mg/ml 10ml vial ONE (07:39)
[2019-08-17] MEDS ORDERED: Rocuronium Bromide 50mg/5ml Inj IV ONE (07:43)
--- NOTE | 2019-08-17 07:44 | Anethesia Preoperative Eval ---
Anesthesia Pre-op PMH/ROS General Date of Evaluation: Aug 17, 2019 Time of Evaluation: 07:30 Anesthesiologist: pretty ASA Score: ASA 4 Mallampati Score Class I : Soft palate, uvula, fauces, pillars visible Class II: Soft palate, uvula, fauces visible Class III: Soft palate, base of uvula visible Class IV: Only hard plate visible Mallampati Classification: Class II Surgeon: luly Diagnosis: dysphagia, nalnutrition Surgical Procedure: egd/peg Anesthesia History: none Social History: smoking - nonsmoker Family History: no anesthesia problems Allergies: Coded Allergies: VANCOMYCIN (Unverified Allergy, Unknown, 08/02/19) Medications: see eMAR Patient NPO?: Yes Past Medical History Cardiovascular: Reports: HTN, CAD, arrhythmia, other - atherosclerotic heart disease Pulmonary: Reports: other - bipap, respiratory compromise Gastrointestinal/Genitourinary: Reports: GERD, ESRD, other - urinary retention Neurologic/Psychiatric: Reports: dementia, CVA, other - aphasia, muscular dystrophy Hematology/Immune: Reports: anemia, bleeding disorder - thrombocytopenia, other - sepsis, bacteremia, failure to thrive Musculoskeletal/Integumentary: Reports: OA Anesthesia Pre-op Phys. Exam Physician Exam Last Vital Signs Date Time Temp Pulse Resp B/P (MAP) Pulse Ox O2 Delivery O2 Flow Rate FiO2 08/17/19 06:07 173/72 08/17/19 06:00 65 22 100 08/17/19 05:15 30 08/17/19 04:00 Bi-pap Bi-pap Bi-pap 08/17/19 04:00 98.0 08/11/19 20:06 15.0 Constitutional: other - obtunded Neurologic: other - contractures Cardiovascular: other - bradycardia Respiratory: other Gastrointestinal: S/NT/ND Airway Exam Mallampati Score: Class II MO: limited Neck: flexible TMD: 2fb ROM: limited Anesthesia Pre-op A/P Labs Hematology Test 08/16/19 09:50 08/17/19 04:05 White Blood Count 5.1 K/UL (4.8-10.8) 5.7 K/UL (4.8-10.8) Red Blood Count 3.89 M/UL (4.20-5.40) L 3.53 M/UL (4.20-5.40) L Hemoglobin 11.6 G/DL (12.0-16.0) L 10.6 G/DL (12.0-16.0) L Hematocrit 34.5 % (37.0-47.0) L 31.8 % (37.0-47.0) L Mean Corpuscular Volume 89 FL (80-99) 90 FL (80-99) Mean Corpuscular Hemoglobin 29.8 PG (27.0-31.0) 30.1 PG (27.0-31.0) Mean Corpuscular Hemoglobin Concent 33.7 G/DL (32.0-36.0) 33.4 G/DL (32.0-36.0) Red Cell Distribution Width 16.7 % (11.6-14.8) H 17.8 % (11.6-14.8) H Platelet Count 307 K/UL (150-450) 292 K/UL (150-450) Mean Platelet Volume 6.4 FL (6.5-10.1) L 6.6 FL (6.5-10.1) Neutrophils (%) (Auto) 56.4 % (45.0-75.0) 37.7 % (45.0-75.0) L Lymphocytes (%) (Auto) 34.1 % (20.0-45.0) 51.2 % (20.0-45.0) H Monocytes (%) (Auto) 7.9 % (1.0-10.0) 9.0 % (1.0-10.0) Eosinophils (%) (Auto) 0.6 % (0.0-3.0) 0.6 % (0.0-3.0) Basophils (%) (Auto) 1.0 % (0.0-2.0) 1.6 % (0.0-2.0) Coagulation Test 08/16/19 21:20 08/17/19 04:05 Prothrombin Time 12.4 SEC (9.30-11.50) H 12.5 SEC (9.30-11.50) H Prothromb Time International Ratio 1.2 (0.9-1.1) H 1.2 (0.9-1.1) H Chemistry Test 08/16/19 09:50 08/17/19 04:05 Sodium Level 147 MMOL/L (136-145) H 145 MMOL/L (136-145) Potassium Level 3.4 MMOL/L (3.5-5.1) L 3.5 MMOL/L (3.5-5.1) Chloride Level 109 MMOL/L (98-107) H 109 MMOL/L (98-107) H Carbon Dioxide Level 27 MMOL/L (21-32) 28 MMOL/L (21-32) Anion Gap 11 mmol/L (5-15) 9 mmol/L (5-15) Blood Urea Nitrogen 42 mg/dL (7-18) H 39 mg/dL (7-18) H Creatinine 5.0 MG/DL (0.55-1.30) H 4.7 MG/DL (0.55-1.30) H Estimat Glomerular Filtration Rate 8.4 mL/min (>60) 9.0 mL/min (>60) Glucose Level 141 MG/DL (74-106) H 88 MG/DL (74-106) Calcium Level 9.0 MG/DL (8.5-10.1) 8.9 MG/DL (8.5-10.1) Phosphorus Level 5.1 MG/DL (2.5-4.9) H Magnesium Level 2.0 MG/DL (1.8-2.4) Total Bilirubin 0.5 MG/DL (0.2-1.0) 0.5 MG/DL (0.2-1.0) Aspartate Amino Transf (AST/SGOT) 20 U/L (15-37) 19 U/L (15-37) Alanine Aminotransferase (ALT/SGPT) 8 U/L (12-78) L < 6 U/L (12-78) L Alkaline Phosphatase 120 U/L (46-116) H 113 U/L (46-116) C-Reactive Protein, Quantitative 3.9 mg/dL (0.00-0.90) H Pro-B-Type Natriuretic Peptide > 59337 pg/mL (0-125) H Total Protein 5.5 G/DL (6.4-8.2) L 5.4 G/DL (6.4-8.2) L Albumin 1.3 G/DL (3.4-5.0) L 1.3 G/DL (3.4-5.0) L Globulin 4.2 g/dL 4.1 g/dL Albumin/Globulin Ratio 0.3 (1.0-2.7) L 0.3 (1.0-2.7) L Risk Assessment & Plan Assessment: asa4. according to primary care doctor and consultants (pulmonary, cardiology) patient as been optimized and will remain intubated and mechanically ventilated following this procedure, to receive tracheostomy. Plan: gen Status Change Before Surgery: No Pre-Antibiotics Drug: Niya Sorto MD Aug 17, 2019 07:44
[2019-08-17] MEDS ORDERED: Atropine Inj 1mg/10ml Syr IV PRN (07:45)
[2019-08-17] MEDS ORDERED: DiphenhydrAMINE 50mg/ml Inj IVP PRN (07:45)
[2019-08-17] MEDS ORDERED: fentaNYL 100 mcg/2 mL IV PRN (07:45)
[2019-08-17] MEDS ORDERED: Midazolam 2mg/2ml Inj IVP PRN (07:45)
--- NOTE | 2019-08-17 07:53 | General Progress Note ---
Assessment/Plan Problem List: (1) Failure to thrive (0-17) ICD Codes: R62.51 - Failure to thrive (0-17) SNOMED: 319090480 (2) Hypertensive kidney disease ICD Codes: I12.9 - Hypertensive chronic kidney disease with stage 1 through stage 4 chronic kidney disease, or unspecified chronic kidney disease SNOMED: 12567831 (3) Pneumonia ICD Codes: J18.9 - Pneumonia, unspecified organism SNOMED: 230981258 Qualifiers: Qualified Codes: J18.9 - Pneumonia, unspecified organism (4) ESRD (end stage renal disease) ICD Codes: N18.6 - End stage renal disease SNOMED: 86385021 (5) Septic arthritis ICD Codes: M00.9 - Pyogenic arthritis, unspecified SNOMED: 406927941 (6) Thrombocytopenia ICD Codes: D69.6 - Thrombocytopenia, unspecified SNOMED: 594581884 (7) Hypotension ICD Codes: I95.9 - Hypotension, unspecified SNOMED: 27338916 Qualifiers: Qualified Codes: I95.3 - Hypotension of hemodialysis (8) Malnutrition ICD Codes: E46 - Unspecified protein-calorie malnutrition SNOMED: 09460759 Status: stable, not improved, unchanged, deteriorating Assessment/Plan: thyroid replacement endo eval cont icu care o2/bipap prn resp rx/suctioning monitor plts and h/h- better iv PPI iv abx HD today iv bp rx critical and guarded gt when stable pt needs emergent perm cath placement for HD. message left with family but no call back yet. plan to replace catheter d/w family this weekend and they wanted to proceed with replacement Subjective ROS Limited/Unobtainable: No Constitutional: Reports: malaise, weakness HEENT: Reports: no symptoms Cardiovascular: Reports: no symptoms Respiratory: Reports: cough Gastrointestinal/Abdominal: Reports: difficulty swallowing Neurologic/Psychiatric: Reports: anxiety Endocrine: Reports: no symptoms Hematologic/Lymphatic: Reports: anemia Allergies: Coded Allergies: VANCOMYCIN (Unverified Allergy, Unknown, 08/02/19) All Systems: reviewed and negative except above Subjective less bradycardic. on bipap. no hemoptysis. no fevers. d/w night rn. no events. labs reviewed. no fevers. still unable top take po. responds to everything with "yes" family wants to proceed with gt. may need to be intubated, possible housing coordinator. family is aware and wants to proceed Objective Last 24 Hour Vital Signs Date Time Temp Pulse Resp B/P (MAP) Pulse Ox O2 Delivery O2 Flow Rate FiO2 08/17/19 06:07 173/72 08/17/19 06:05 173/72 08/17/19 06:00 65 22 173/72 (105) 100 08/17/19 05:15 58 18 100 30 08/17/19 05:00 30 08/17/19 05:00 60 41 154/89 (110) 100 08/17/19 04:00 Bi-pap Bi-pap Bi-pap 08/17/19 04:00 59 08/17/19 04:00 98.0 70 70 170/92 (118) 100 08/17/19 03:00 68 24 154/71 (98) 99 08/17/19 02:58 79 22 99 30 08/17/19 02:00 73 22 143/74 (97) 98 08/17/19 01:10 71 26 99 30 08/17/19 01:00 82 29 154/85 (108) 99 08/17/19 00:16 162/82 08/17/19 00:00 56 08/17/19 00:00 70 38 162/82 (108) 100 08/17/19 00:00 Bi-pap Bi-pap Bi-pap 08/17/19 00:00 30 08/16/19 23:20 69 29 99 30 08/16/19 23:20 69 29 99 Bi-Pap 30 08/16/19 23:00 98.4 62 25 153/71 (98) 100 08/16/19 22:00 69 35 151/67 (95) 97 08/16/19 21:05 70 23 98 30 08/16/19 21:00 74 26 154/71 (98) 99 08/16/19 20:00 56 08/16/19 20:00 Bi-pap Bi-pap Bi-pap 08/16/19 20:00 98.2 76 32 165/79 (107) 98 08/16/19 20:00 30 08/16/19 19:10 70 22 96 30 08/16/19 19:10 96 Bi-Pap 30 08/16/19 19:00 66 23 153/67 (95) 99 08/16/19 18:00 66 23 159/78 (105) 96 08/16/19 17:20 128/75 08/16/19 17:00 56 16 177/73 (107) 98 08/16/19 16:52 58 16 98 30 08/16/19 16:00 57 17 143/72 (95) 98 08/16/19 16:00 Bi-pap Bi-pap Bi-pap 08/16/19 16:00 64 08/16/19 16:00 98.1 08/16/19 15:18 56 16 99 30 08/16/19 15:00 59 22 163/90 (114) 91 08/16/19 14:00 48 21 151/71 (97) 98 08/16/19 13:00 60 21 147/85 (105) 99 08/16/19 12:40 64 22 97 30 08/16/19 12:35 56 08/16/19 12:26 142/82 08/16/19 12:00 Bi-pap Bi-pap Bi-pap 08/16/19 12:00 30 08/16/19 12:00 63 13 141/80 (100) 100 08/16/19 11:00 69 20 118/73 (88) 99 08/16/19 10:44 58 19 98 30 08/16/19 10:00 54 24 147/80 (102) 99 08/16/19 09:00 54 26 147/80 (102) 99 08/16/19 08:54 55 16 97 30 08/16/19 08:00 58 08/16/19 08:00 56 26 152/66 (94) 96 08/16/19 08:00 Bi-pap Bi-pap Bi-pap 08/16/19 08:00 30 08/16/19 08:00 97.4 Intake and Output 08/16/19 08/17/19 19:00 07:00 Intake Total 420 ml 255 ml Output Total 0 ml 236 ml Balance 420 ml 19 ml IV Total 420 ml 255 ml Output Urine Total 0 ml 0 ml Other 236 ml Laboratory Tests 08/16/19 09:50: White Blood Count 5.1, Red Blood Count 3.89L, Hemoglobin 11.6L, Hematocrit 34.5L , Mean Corpuscular Volume 89, Mean Corpuscular Hemoglobin 29.8, Mean Corpuscular Hemoglobin Concent 33.7, Red Cell Distribution Width 16.7H, Platelet Count 307, Mean Platelet Volume 6.4L, Neutrophils (%) (Auto) 56.4, Lymphocytes (%) (Auto) 34.1, Monocytes (%) (Auto) 7.9, Eosinophils (%) (Auto) 0.6, Basophils (%) (Auto) 1.0, Sodium Level 147H, Potassium Level 3.4L, Chloride Level 109H, Carbon Dioxide Level 27, Anion Gap 11, Blood Urea Nitrogen 42H, Creatinine 5.0H, Estimat Glomerular Filtration Rate 8.4, Glucose Level 141H , Calcium Level 9.0, Phosphorus Level 5.1H, Magnesium Level 2.0, Total Bilirubin 0.5, Aspartate Amino Transf (AST/SGOT) 20, Alanine Aminotransferase ( ALT/SGPT) 8L, Alkaline Phosphatase 120H, C-Reactive Protein, Quantitative 3.9H, Pro-B-Type Natriuretic Peptide > 51478S, Total Protein 5.5L, Albumin 1.3L, Globulin 4.2, Albumin/Globulin Ratio 0.3L 08/16/19 21:20: Prothrombin Time 12.4H, Prothromb Time International Ratio 1.2H 08/17/19 04:05: White Blood Count 5.7, Red Blood Count 3.53L, Hemoglobin 10.6L, Hematocrit 31.8L , Mean Corpuscular Volume 90, Mean Corpuscular Hemoglobin 30.1, Mean Corpuscular Hemoglobin Concent 33.4, Red Cell Distribution Width 17.8H, Platelet Count 292, Mean Platelet Volume 6.6, Neutrophils (%) (Auto) 37.7L, Lymphocytes (%) (Auto) 51.2H, Monocytes (%) (Auto) 9.0, Eosinophils (%) (Auto) 0.6, Basophils (%) (Auto) 1.6, Sodium Level 145, Potassium Level 3.5, Chloride Level 109H, Carbon Dioxide Level 28, Anion Gap 9, Blood Urea Nitrogen 39H, Creatinine 4.7H, Estimat Glomerular Filtration Rate 9.0, Glucose Level 88, Calcium Level 8.9, Total Bilirubin 0.5, Aspartate Amino Transf (AST/SGOT) 19, Alanine Aminotransferase (ALT/SGPT) < 6L, Alkaline Phosphatase 113, Total Protein 5.4L, Albumin 1.3L, Globulin 4.1, Albumin/Globulin Ratio 0.3L, Prothrombin Time 12.5H, Prothromb Time International Ratio 1.2H Height (Feet): 5 Height (Inches): 0.33 Weight (Pounds): 96 Objective General Appearance: WD/WN, awake/moaning. on bipap Neck: supple Cardiovascular: normal rate Respiratory/Chest: rhonchi - bilaterally Abdomen: normal bowel sounds, non tender, soft, no organomegaly Edema: no edema noted Arm (L), no edema noted Arm (R), no edema noted Leg (L), no edema noted Leg (R), no edema noted Pedal (L), no edema noted Pedal (R), no edema noted Generalized Neurologic: disoriented, aphasia Nate Beltran MD Aug 17, 2019 07:53
[2019-08-17] MEDS ORDERED: Propofol 200mg/20ml IV ONE (08:00)
[2019-08-17] MEDS ORDERED: Lidocaine 1% MPF 10mg/ml 5ml ONE (08:00)
--- NOTE | 2019-08-17 08:02 | General Progress Note ---
Assessment/Plan Status: stable, not improved, unchanged, deteriorating Assessment/Plan: Assessment - Resp failure --> BIPAP - not improving - will need intubation pre PEG - may end up with trach - family aware and accept - thrombocytopenia --> resolved, now OK for PEG - Renal failure --> now on HD, stablized - aspiration risk --> NPO for many days, need to proceed with PEG - anemia - bradycardia --> will have atropine at bedside for PEG Recommendations - NPO - Intubate this am for PEG - atropine at bedside Subjective Allergies: Coded Allergies: VANCOMYCIN (Unverified Allergy, Unknown, 08/02/19) Subjective Above noted d/w RN some apnea episodes on BIPAP overnight d/w PMD, Pulmonary, Cardiology, and Anesthesia re planned PEG today patient minimally interactive Per discussion with daughter last night, family wants "everything done", not open to hospice Objective Last 24 Hour Vital Signs Date Time Temp Pulse Resp B/P (MAP) Pulse Ox O2 Delivery O2 Flow Rate FiO2 08/17/19 06:07 173/72 08/17/19 06:05 173/72 08/17/19 06:00 65 22 173/72 (105) 100 08/17/19 05:15 58 18 100 30 08/17/19 05:00 30 08/17/19 05:00 60 41 154/89 (110) 100 08/17/19 04:00 Bi-pap Bi-pap Bi-pap 08/17/19 04:00 59 08/17/19 04:00 98.0 70 70 170/92 (118) 100 08/17/19 03:00 68 24 154/71 (98) 99 08/17/19 02:58 79 22 99 30 08/17/19 02:00 73 22 143/74 (97) 98 08/17/19 01:10 71 26 99 30 08/17/19 01:00 82 29 154/85 (108) 99 08/17/19 00:16 162/82 08/17/19 00:00 56 08/17/19 00:00 70 38 162/82 (108) 100 08/17/19 00:00 Bi-pap Bi-pap Bi-pap 08/17/19 00:00 30 08/16/19 23:20 69 29 99 30 08/16/19 23:20 69 29 99 Bi-Pap 30 08/16/19 23:00 98.4 62 25 153/71 (98) 100 08/16/19 22:00 69 35 151/67 (95) 97 08/16/19 21:05 70 23 98 30 08/16/19 21:00 74 26 154/71 (98) 99 08/16/19 20:00 56 08/16/19 20:00 Bi-pap Bi-pap Bi-pap 08/16/19 20:00 98.2 76 32 165/79 (107) 98 08/16/19 20:00 30 08/16/19 19:10 70 22 96 30 08/16/19 19:10 96 Bi-Pap 30 08/16/19 19:00 66 23 153/67 (95) 99 08/16/19 18:00 66 23 159/78 (105) 96 08/16/19 17:20 128/75 08/16/19 17:00 56 16 177/73 (107) 98 08/16/19 16:52 58 16 98 30 08/16/19 16:00 57 17 143/72 (95) 98 08/16/19 16:00 Bi-pap Bi-pap Bi-pap 08/16/19 16:00 64 08/16/19 16:00 98.1 08/16/19 15:18 56 16 99 30 08/16/19 15:00 59 22 163/90 (114) 91 08/16/19 14:00 48 21 151/71 (97) 98 08/16/19 13:00 60 21 147/85 (105) 99 08/16/19 12:40 64 22 97 30 08/16/19 12:35 56 08/16/19 12:26 142/82 08/16/19 12:00 Bi-pap Bi-pap Bi-pap 08/16/19 12:00 30 08/16/19 12:00 63 13 141/80 (100) 100 08/16/19 11:00 69 20 118/73 (88) 99 08/16/19 10:44 58 19 98 30 08/16/19 10:00 54 24 147/80 (102) 99 08/16/19 09:00 54 26 147/80 (102) 99 08/16/19 08:54 55 16 97 30 08/16/19 08:00 58 08/16/19 08:00 56 26 152/66 (94) 96 08/16/19 08:00 Bi-pap Bi-pap Bi-pap 08/16/19 08:00 30 08/16/19 08:00 97.4 Intake and Output 08/16/19 08/17/19 19:00 07:00 Intake Total 420 ml 255 ml Output Total 0 ml 236 ml Balance 420 ml 19 ml IV Total 420 ml 255 ml Output Urine Total 0 ml 0 ml Other 236 ml Laboratory Tests 08/16/19 09:50: White Blood Count 5.1, Red Blood Count 3.89L, Hemoglobin 11.6L, Hematocrit 34.5L , Mean Corpuscular Volume 89, Mean Corpuscular Hemoglobin 29.8, Mean Corpuscular Hemoglobin Concent 33.7, Red Cell Distribution Width 16.7H, Platelet Count 307, Mean Platelet Volume 6.4L, Neutrophils (%) (Auto) 56.4, Lymphocytes (%) (Auto) 34.1, Monocytes (%) (Auto) 7.9, Eosinophils (%) (Auto) 0.6, Basophils (%) (Auto) 1.0, Sodium Level 147H, Potassium Level 3.4L, Chloride Level 109H, Carbon Dioxide Level 27, Anion Gap 11, Blood Urea Nitrogen 42H, Creatinine 5.0H, Estimat Glomerular Filtration Rate 8.4, Glucose Level 141H , Calcium Level 9.0, Phosphorus Level 5.1H, Magnesium Level 2.0, Total Bilirubin 0.5, Aspartate Amino Transf (AST/SGOT) 20, Alanine Aminotransferase ( ALT/SGPT) 8L, Alkaline Phosphatase 120H, C-Reactive Protein, Quantitative 3.9H, Pro-B-Type Natriuretic Peptide > [id number], Total Protein 5.5L, Albumin 1.3L, Globulin 4.2, Albumin/Globulin Ratio 0.3L 08/16/19 21:20: Prothrombin Time 12.4H, Prothromb Time International Ratio 1.2H 08/17/19 04:05: White Blood Count 5.7, Red Blood Count 3.53L, Hemoglobin 10.6L, Hematocrit 31.8L , Mean Corpuscular Volume 90, Mean Corpuscular Hemoglobin 30.1, Mean Corpuscular Hemoglobin Concent 33.4, Red Cell Distribution Width 17.8H, Platelet Count 292, Mean Platelet Volume 6.6, Neutrophils (%) (Auto) 37.7L, Lymphocytes (%) (Auto) 51.2H, Monocytes (%) (Auto) 9.0, Eosinophils (%) (Auto) 0.6, Basophils (%) (Auto) 1.6, Sodium Level 145, Potassium Level 3.5, Chloride Level 109H, Carbon Dioxide Level 28, Anion Gap 9, Blood Urea Nitrogen 39H, Creatinine 4.7H, Estimat Glomerular Filtration Rate 9.0, Glucose Level 88, Calcium Level 8.9, Total Bilirubin 0.5, Aspartate Amino Transf (AST/SGOT) 19, Alanine Aminotransferase (ALT/SGPT) < 6L, Alkaline Phosphatase 113, Total Protein 5.4L, Albumin 1.3L, Globulin 4.1, Albumin/Globulin Ratio 0.3L, Prothrombin Time 12.5H, Prothromb Time International Ratio 1.2H Height (Feet): 5 Height (Inches): 0.33 Weight (Pounds): 96 Objective Debilitated frail woman NCAT (+) BIPAP supple scattered ronchi RR abd soft ND NT no edema Cristy Elizondo MD Aug 17, 2019 08:02
--- NOTE | 2019-08-17 08:03 | Pre-Procedure Note/Attestation ---
Pre-Procedure Note/Attestation Complete Prior to Procedure Planned Procedure: not applicable Procedure Narrative: EGD, PEG Indications for Procedure Pre-Operative Diagnosis: dysphagia Attestation I attest that I discussed the nature of the procedure; its benefits; risks and complications; and alternatives (and the risks and benefits of such alternatives ), prior to the procedure, with the patient (or the patient's legal food service representative). I attest that, if there was a reasonable possibility of needing a blood transfusion, the patient (or the patient's legal food service representative) was given the [facility] standardized written summary, pursuant to the Carlos Justin Blood Safety Act ([place] Health and Safety Code # 1645, as amended). I attest that I re-evaluated the patient just prior to the surgery and that there has been no change in the patient's H&P, except as documented below: Cristy Elizondo MD Aug 17, 2019 08:03
--- NOTE | 2019-08-17 08:40 | Endoscopy Procedure Note ---
Endoscopy Procedure Note General Indication for Procedure: dysphagia Procedures Performed: EGD, PEG, other Operative Findings/Diagnosis: severe esophagitis Specimen: yes Pt Tolerated Procedure Well: Yes Estimated Blood Loss: none Anesthesia Anesthesiologist: Ramirez Winslow Anesthesia: MAC Medications Medication Given: see anesthesia record Inserted Devices Implant(s) used?: No GI Core Measures 50 yrs or older w/o bx or poly: Not Applicable 10yrs. F/U recommended: Not Applicable Cristy Elizondo MD Aug 17, 2019 08:40
--- NOTE | 2019-08-17 08:41 | Brief Operative Note ---
Immediate Post Operative Note Operative Note Chief Complaint: dysphagia Pre-op Diagnosis: dysphagia Procedure: esophagogastroduodenoscopy bx PEG, Post-op Diagnosis: severe esophagitis Bx PEG Surgeon: luly Anesthesiologist: joby tarango Anesthesia: MAC Specimen: yes Complications: yes Fluids: per anesthesia Estimated Blood Loss: none Drains: none Implant(s) used?: No Cristy Elizondo MD Aug 17, 2019 08:41
--- NOTE | 2019-08-17 09:02 | Immediate Post-Op Evaluation ---
Immediate Post-Op Evalulation Immediate Post-Op Evalulation Procedure: egd/peg w/bx Date of Evaluation: Aug 17, 2019 Time of Evaluation: 08:54 IV Fluids: 500ml 0.9ns Blood Products: none Estimated Blood Loss: negligible Blood Pressure Systolic: 131 Blood Pressure Diastolic: 68 Pulse Rate: 63 Respiratory Rate: 18 O2 Sat by Pulse Oximetry: 100 Temperature (Fahrenheit): 98.0 Pain Score (1-10): 0 Nausea: No Vomiting: No Complications none Patient Status: awake, reacts, patent, ventilated Hydration Status: adequate Drug: Niya Sorto MD Aug 17, 2019 09:02
--- NOTE | 2019-08-17 09:04 | 48 Hour Post Anesthesia Eval ---
Post Anesthesia Evaluation Procedure: egd/peg w/bx Date of Evaluation: Aug 17, 2019 Time of Evaluation: 08:56 Blood Pressure Systolic: 168 0: 71 Pulse Rate: 61 Respiratory Rate: 18 Temperature (Fahrenheit): 98.0 O2 Sat by Pulse Oximetry: 100 Airway: patent Nausea: No Vomiting: No Pain Intensity: 0 Hydration Status: adequate Cardiopulmonary Status: stable Mental Status/LOC: patient returned to baseline Post-Anesthesia Complications: none Follow-up care needed: N/A Niya Kowalski MD Aug 17, 2019 09:04
[2019-08-17] MEDS: Pantoprazole Inj IVP SCH ×2 (09:12→21:00)
[2019-08-17] MEDS: Meropenem 500 MG in NS 55 ML IVPB SCH ×2 (09:23→21:00)
--- NOTE | 2019-08-17 10:00 | Diagnostic Imaging Report ---
Indication: Postintubation Comparison: Chest x-ray 08/16/2019 and KUB 08/16/2019 A single view chest radiograph was obtained. Findings: The endotracheal tube is in the right mainstem bronchus by about 3 cm. The tube needs to be pulled up about 4 cm at a minimum. This was conveyed to the ICU nurse. The patient had a gastrostomy placement this morning. There is a large amount of free air present within the upper abdomen. The gastrostomy is noted and projected over the epigastric region slightly left of midline. The left hemithorax remains opacified completely. IMPRESSION: Right mainstem intubation. Endotracheal tube should be pulled up 4 to 5 cm and chest x-ray repeated. Large amount of free air within the abdomen presumably related to the gastrostomy placement. Both of these findings were conveyed to the ICU nurse 9:50 a.m. 08/17/2019. Dr. Elizondo will be notified of the results regarding the abdomen.
[2019-08-17] MEDS: D5NS 1,000 ML IV SCH (10:30)
--- NOTE | 2019-08-17 10:33 | Pulmonolgy Critical Care Note ---
Critical Care - Asmt/Plan Assessment/Plan: Pulmonary CCM Progress Note Assessment/Plan respiratory failure hemoptysis hypoxemia chronic renal failure toxic met encephalopathy severe protein calorie malnutrition cachexia left lung whiteout PLAN adjust ETT may need bronchoscopy antibiotics monitor imaging and repeat today BIPAP for now avoid excessive suctioning with coagulopathy elevated head watch fluid status nutrition as able off load ICU care discussed critical at present requires ICU management feeds as able elevate head medications/laboratory data/nursing notes/ICU care reviewed in detail note reviewed and edited care discussed with RN and RT ICU time spent >38 minutes coordinating care Critical Care - Subjective Interval Events: care noted ROS Limited/Unobtainable: Yes Condition: critical EKG Rhythm: Sinus Rhythm Labs Test 08/14/19 02:55 08/14/19 04:55 08/14/19 09:38 08/15/19 08:05 Cortisol 15.1 UG/DL Sodium Level 143 MMOL/L (136-145) Potassium Level 3.3 MMOL/L (3.5-5.1) Chloride Level 104 MMOL/L (98-107) Carbon Dioxide Level 31 MMOL/L (21-32) Anion Gap 8 mmol/L (5-15) Blood Urea Nitrogen 40 mg/dL (7-18) Creatinine 4.1 MG/DL (0.55-1.30) Estimat Glomerular Filtration Rate 10.5 mL/min (>60) Glucose Level 113 MG/DL (74-106) Uric Acid 7.2 MG/DL (2.6-7.2) Calcium Level 8.8 MG/DL (8.5-10.1) Phosphorus Level 4.6 MG/DL (2.5-4.9) Magnesium Level 2.0 MG/DL (1.8-2.4) Total Bilirubin 0.5 MG/DL (0.2-1.0) Aspartate Amino Transf (AST/SGOT) 27 U/L (15-37) Alanine Aminotransferase (ALT/SGPT) < 6 U/L (12-78) Alkaline Phosphatase 120 U/L (46-116) C-Reactive Protein, Quantitative 5.8 mg/dL (0.00-0.90) Pro-B-Type Natriuretic Peptide > 05360 pg/mL (0-125) Total Protein 5.7 G/DL (6.4-8.2) Albumin 1.5 G/DL (3.4-5.0) Globulin 4.2 g/dL Albumin/Globulin Ratio 0.4 (1.0-2.7) Arterial Blood pH 7.422 (7.350-7.450) Arterial Blood Partial Pressure CO2 46.0 mmHg (35.0-45.0) Arterial Blood Partial Pressure O2 76.5 mmHg (75.0-100.0) Arterial Blood HCO3 29.3 mmol/L (22.0-26.0) Arterial Blood Oxygen Saturation 95.0 % (95-100) Arterial Blood Base Excess 4.2 (-2-2) Cuauhtemoc Test Positive White Blood Count 5.9 K/UL (4.8-10.8) Red Blood Count 3.45 M/UL (4.20-5.40) Hemoglobin 10.5 G/DL (12.0-16.0) Hematocrit 30.2 % (37.0-47.0) Mean Corpuscular Volume 87 FL (80-99) Mean Corpuscular Hemoglobin 30.4 PG (27.0-31.0) Mean Corpuscular Hemoglobin Concent 34.8 G/DL (32.0-36.0) Red Cell Distribution Width 15.2 % (11.6-14.8) Platelet Count 237 K/UL (150-450) Mean Platelet Volume 7.8 FL (6.5-10.1) Neutrophils (%) (Auto) 50.7 % (45.0-75.0) Lymphocytes (%) (Auto) 38.9 % (20.0-45.0) Monocytes (%) (Auto) 8.3 % (1.0-10.0) Eosinophils (%) (Auto) 1.0 % (0.0-3.0) Basophils (%) (Auto) 1.0 % (0.0-2.0) Objective: Vital signs noted Intubated WDWN NAD reduced breath sounds left >>right without rhonchi or wheeze [id number] without MRG NABS nontender no HSM no CCE contractures poorly responsive nonfocal reviewed and edited Micro: Microbiology Date/Time Source Procedure Growth Status 08/14/19 05:10 Blood Blood Culture - Preliminary NO GROWTH AFTER 48 HOURS Resulted 08/14/19 04:55 Blood Blood Culture - Preliminary NO GROWTH AFTER 48 HOURS Resulted Critical Care - Objective Last 24 Hour Vital Signs Date Time Temp Pulse Resp B/P (MAP) Pulse Ox O2 Delivery O2 Flow Rate FiO2 08/17/19 10:08 64 18 50 08/17/19 09:04 61 18 100 08/17/19 09:02 63 18 100 08/17/19 09:00 70 25 144/73 (96) 100 08/17/19 08:20 64 18 50 08/17/19 08:02 61 21 168/71 (103) 100 08/17/19 08:00 100 08/17/19 08:00 Mechanical Ventilator Mechanical Ventilator Mechanical Ventilator 08/17/19 07:36 66 08/17/19 07:00 61 39 158/71 (100) 98 08/17/19 07:00 100 Bi-Pap 30 08/17/19 06:07 173/72 08/17/19 06:05 173/72 08/17/19 06:00 65 22 173/72 (105) 100 08/17/19 05:15 58 18 100 30 08/17/19 05:00 30 08/17/19 05:00 60 41 154/89 (110) 100 08/17/19 04:00 Bi-pap Bi-pap Bi-pap 08/17/19 04:00 59 08/17/19 04:00 98.0 70 70 170/92 (118) 100 08/17/19 03:00 68 24 154/71 (98) 99 08/17/19 02:58 79 22 99 30 08/17/19 02:00 73 22 143/74 (97) 98 08/17/19 01:10 71 26 99 30 08/17/19 01:00 82 29 154/85 (108) 99 08/17/19 00:16 162/82 08/17/19 00:00 56 08/17/19 00:00 70 38 162/82 (108) 100 08/17/19 00:00 Bi-pap Bi-pap Bi-pap 08/17/19 00:00 30 08/16/19 23:20 69 29 99 30 08/16/19 23:20 69 29 99 Bi-Pap 30 08/16/19 23:00 98.4 62 25 153/71 (98) 100 08/16/19 22:00 69 35 151/67 (95) 97 08/16/19 21:05 70 23 98 30 08/16/19 21:00 74 26 154/71 (98) 99 08/16/19 20:00 56 08/16/19 20:00 Bi-pap Bi-pap Bi-pap 08/16/19 20:00 98.2 76 32 165/79 (107) 98 08/16/19 20:00 30 08/16/19 19:10 70 22 96 30 08/16/19 19:10 96 Bi-Pap 30 08/16/19 19:00 66 23 153/67 (95) 99 08/16/19 18:00 66 23 159/78 (105) 96 08/16/19 17:20 128/75 08/16/19 17:00 56 16 177/73 (107) 98 08/16/19 16:52 58 16 98 30 08/16/19 16:00 57 17 143/72 (95) 98 08/16/19 16:00 Bi-pap Bi-pap Bi-pap 08/16/19 16:00 64 08/16/19 16:00 98.1 08/16/19 15:18 56 16 99 30 08/16/19 15:00 59 22 163/90 (114) 91 08/16/19 14:00 48 21 151/71 (97) 98 08/16/19 13:00 60 21 147/85 (105) 99 08/16/19 12:40 64 22 97 30 08/16/19 12:35 56 08/16/19 12:26 142/82 08/16/19 12:00 Bi-pap Bi-pap Bi-pap 08/16/19 12:00 30 08/16/19 12:00 63 13 141/80 (100) 100 08/16/19 11:00 69 20 118/73 (88) 99 08/16/19 10:44 58 19 98 30 Accucheck: 186 Critical Care - Subjective Condition: stable FI02: 50 Vent Support Breath Rate: 18 Vent Support Mode: AC Sputum Amount: Small PEEP: 5.0 PIP: 21 Tube Feeding Amount: 15 I&O: Intake and Output 08/16/19 08/17/19 19:00 07:00 Intake Total 420 ml 255 ml Output Total 0 ml 236 ml Balance 420 ml 19 ml IV Total 420 ml 255 ml Output Urine Total 0 ml 0 ml Other 236 ml ET-Tube: 7.0 ET Position: 22 Abel Graham MD Aug 17, 2019 10:33
--- NOTE | 2019-08-17 10:44 | Infectious Diseases Prog Note ---
Assessment/Plan Assessment/Plan antibiotics : meropenem, micafungin A 1. fungemia 2. right shoulder septic arthritis with staph aureus s/p rx 3. renal failure 4. thrombocytopenia resolved 7. diabetes mellitus 8. hypertension 9. respiratory failure P 1. continue meropenem 2. micafungin started 3. will follow up cultures 4. sputum culture Subjective ROS Limited/Unobtainable: Yes Allergies: Coded Allergies: VANCOMYCIN (Unverified Allergy, Unknown, 08/02/19) Objective Vital Signs Last 24 Hour Vital Signs Date Time Temp Pulse Resp B/P (MAP) Pulse Ox O2 Delivery O2 Flow Rate FiO2 08/17/19 10:08 64 18 50 08/17/19 09:04 61 18 100 08/17/19 09:02 63 18 100 08/17/19 09:00 70 25 144/73 (96) 100 08/17/19 08:20 64 18 50 08/17/19 08:02 61 21 168/71 (103) 100 08/17/19 08:00 100 08/17/19 08:00 Mechanical Ventilator Mechanical Ventilator Mechanical Ventilator 08/17/19 07:36 66 08/17/19 07:00 61 39 158/71 (100) 98 08/17/19 07:00 100 Bi-Pap 30 08/17/19 06:07 173/72 08/17/19 06:05 173/72 08/17/19 06:00 65 22 173/72 (105) 100 08/17/19 05:15 58 18 100 30 08/17/19 05:00 30 08/17/19 05:00 60 41 154/89 (110) 100 08/17/19 04:00 Bi-pap Bi-pap Bi-pap 08/17/19 04:00 59 08/17/19 04:00 98.0 70 70 170/92 (118) 100 08/17/19 03:00 68 24 154/71 (98) 99 08/17/19 02:58 79 22 99 30 08/17/19 02:00 73 22 143/74 (97) 98 08/17/19 01:10 71 26 99 30 08/17/19 01:00 82 29 154/85 (108) 99 08/17/19 00:16 162/82 08/17/19 00:00 56 08/17/19 00:00 70 38 162/82 (108) 100 08/17/19 00:00 Bi-pap Bi-pap Bi-pap 08/17/19 00:00 30 08/16/19 23:20 69 29 99 30 08/16/19 23:20 69 29 99 Bi-Pap 30 08/16/19 23:00 98.4 62 25 153/71 (98) 100 08/16/19 22:00 69 35 151/67 (95) 97 08/16/19 21:05 70 23 98 30 08/16/19 21:00 74 26 154/71 (98) 99 08/16/19 20:00 56 08/16/19 20:00 Bi-pap Bi-pap Bi-pap 08/16/19 20:00 98.2 76 32 165/79 (107) 98 08/16/19 20:00 30 08/16/19 19:10 70 22 96 30 08/16/19 19:10 96 Bi-Pap 30 08/16/19 19:00 66 23 153/67 (95) 99 08/16/19 18:00 66 23 159/78 (105) 96 08/16/19 17:20 128/75 08/16/19 17:00 56 16 177/73 (107) 98 08/16/19 16:52 58 16 98 30 08/16/19 16:00 57 17 143/72 (95) 98 08/16/19 16:00 Bi-pap Bi-pap Bi-pap 08/16/19 16:00 64 08/16/19 16:00 98.1 08/16/19 15:18 56 16 99 30 08/16/19 15:00 59 22 163/90 (114) 91 08/16/19 14:00 48 21 151/71 (97) 98 08/16/19 13:00 60 21 147/85 (105) 99 08/16/19 12:40 64 22 97 30 08/16/19 12:35 56 08/16/19 12:26 142/82 08/16/19 12:00 Bi-pap Bi-pap Bi-pap 08/16/19 12:00 30 08/16/19 12:00 63 13 141/80 (100) 100 08/16/19 11:00 69 20 118/73 (88) 99 08/16/19 10:44 58 19 98 30 Height (Feet): 5 Height (Inches): 0.33 Weight (Pounds): 96 HEENT: other - intubated Respiratory/Chest: lungs clear Cardiovascular: normal rate, regular rhythm, no gallop/murmur Abdomen: soft, non tender, other - GT Extremities: no edema, other - right groin catheter Laboratory Tests Test 08/16/19 21:20 08/17/19 04:05 08/17/19 08:46 Prothrombin Time 12.4 SEC (9.30-11.50) H 12.5 SEC (9.30-11.50) H Prothromb Time International Ratio 1.2 (0.9-1.1) H 1.2 (0.9-1.1) H White Blood Count 5.7 K/UL (4.8-10.8) Red Blood Count 3.53 M/UL (4.20-5.40) L Hemoglobin 10.6 G/DL (12.0-16.0) L Hematocrit 31.8 % (37.0-47.0) L Mean Corpuscular Volume 90 FL (80-99) Mean Corpuscular Hemoglobin 30.1 PG (27.0-31.0) Mean Corpuscular Hemoglobin Concent 33.4 G/DL (32.0-36.0) Red Cell Distribution Width 17.8 % (11.6-14.8) H Platelet Count 292 K/UL (150-450) Mean Platelet Volume 6.6 FL (6.5-10.1) Neutrophils (%) (Auto) 37.7 % (45.0-75.0) L Lymphocytes (%) (Auto) 51.2 % (20.0-45.0) H Monocytes (%) (Auto) 9.0 % (1.0-10.0) Eosinophils (%) (Auto) 0.6 % (0.0-3.0) Basophils (%) (Auto) 1.6 % (0.0-2.0) Sodium Level 145 MMOL/L (136-145) Potassium Level 3.5 MMOL/L (3.5-5.1) Chloride Level 109 MMOL/L (98-107) H Carbon Dioxide Level 28 MMOL/L (21-32) Anion Gap 9 mmol/L (5-15) Blood Urea Nitrogen 39 mg/dL (7-18) H Creatinine 4.7 MG/DL (0.55-1.30) H Estimat Glomerular Filtration Rate 9.0 mL/min (>60) Glucose Level 88 MG/DL (74-106) Calcium Level 8.9 MG/DL (8.5-10.1) Total Bilirubin 0.5 MG/DL (0.2-1.0) Aspartate Amino Transf (AST/SGOT) 19 U/L (15-37) Alanine Aminotransferase (ALT/SGPT) < 6 U/L (12-78) L Alkaline Phosphatase 113 U/L (46-116) Total Protein 5.4 G/DL (6.4-8.2) L Albumin 1.3 G/DL (3.4-5.0) L Globulin 4.1 g/dL Albumin/Globulin Ratio 0.3 (1.0-2.7) L Arterial Blood pH 7.486 (7.350-7.450) Arterial Blood Partial Pressure CO2 35.3 mmHg (35.0-45.0) Arterial Blood Partial Pressure O2 121.4 mmHg (75.0-100.0) H Arterial Blood HCO3 26.1 mmol/L (22.0-26.0) H Arterial Blood Oxygen Saturation 97.4 % (95-100) Arterial Blood Base Excess 2.7 (-2-2) H Cuauhtemoc Test Positive Current Medications Medications (Trade) Dose Ordered Sig/Javier Route PRN Reason Start Time Stop Time Status Last Admin Dose Admin Acetaminophen (Tylenol) 650 mg Q4H PRN ORAL Mild Pain (Pain Scale 1-3) 08/17/19 07:45 08/17/19 15:00 Al Hydroxide/Mg Hydroxide (Mylanta) 15 ml Q1H PRN ORAL gi upset 08/17/19 07:45 08/17/19 15:00 Atropine Sulfate (Atropine) 0.5 mg Q5M PRN IV bpm less than 45 08/17/19 07:45 08/17/19 15:00 Atropine Sulfate (Atropine) 1 mg Q4H PRN IVP Per rx protocol 08/13/19 08:30 09/12/19 08:29 Chlorhexidine Gluconate (Nae-Hex 2%) 1 applic DAILY@1999 TOPIC 08/15/19 20:00 09/14/19 19:59 08/16/19 21:34 Dextrose (Dextrose 50%) 50 ml Q30M PRN IV Hypoglycemia 08/11/19 10:30 09/04/19 17:44 08/17/19 06:07 Dextrose/Sodium Chloride 1,000 ml @ 20 mls/hr Q24H IV 08/15/19 10:30 09/12/19 10:29 08/16/19 12:26 Diphenhydramine HCl (Benadryl) 25 mg Q15M PRN IVP Itching 08/17/19 07:45 08/17/19 15:00 Diphenhydramine HCl (Benadryl) 50 mg Q4H PRN IVP Itching 08/09/19 14:30 09/08/19 14:29 08/13/19 02:39 Enoxaparin Sodium (Lovenox) 30 mg DAILY SUBQ 08/18/19 09:00 09/17/19 08:59 UNV Epoetin Thomas (Epoetin Thomas(ESRD on dialysis)) 4,000 unit THU-THU-THU SUBQ 08/12/19 21:00 09/11/19 20:59 08/15/19 20:59 Fentanyl Citrate (Sublimaze 100 mcg/2 mL) 25 mcg Q10M PRN IV Moderate Pain (Pain Scale 4-6) 08/17/19 07:45 08/17/19 15:00 Heparin Sodium/ Sodium Chloride (Heparin 1000 units/500ml Premix) 1,000 unit ONCE PRN IV picc line placement 08/16/19 13:00 08/18/19 12:59 Hydralazine HCl (Apresoline) 5 mg Q30M PRN IV SBP>160 OR___/DBP>90 OR___ 08/17/19 07:45 08/17/19 15:00 Hydralazine HCl (Apresoline) 25 mg Q6H PRN IV For High Blood Pressure 08/14/19 01:45 09/13/19 01:44 08/17/19 06:07 Levothyroxine Sodium (Synthroid) 75 mcg DAILY IV 08/13/19 09:00 09/12/19 08:59 08/17/19 09:23 Lidocaine HCl (Xylocaine 1% 30ml) 30 ml ONCE PRN INJ picc placement 08/16/19 13:00 08/18/19 12:59 Meropenem 500 mg/ Sodium Chloride 55 ml @ 110 mls/hr EVERY 12 HOURS IVPB 08/13/19 21:00 08/18/19 20:59 08/17/19 09:23 Metoclopramide HCl (Reglan) 5 mg Q8H PRN IVP Nausea & Vomiting 08/09/19 12:39 09/08/19 12:38 Micafungin Sodium 100 mg/Sodium Chloride 110 ml @ 110 mls/hr Q24H IVPB 08/16/19 14:00 08/23/19 13:59 08/16/19 14:00 Midazolam HCl (Versed 2mg/2ml vial) 1 mg Q15M PRN IVP For Anxiety 08/17/19 07:45 08/17/19 15:00 Nitroglycerin (Nitro-Bid) 1 inch Q6HR TOPIC 08/09/19 12:39 09/08/19 12:38 08/17/19 06:05 Ondansetron HCl (Zofran) 4 mg Q1H PRN IVP Nausea & Vomiting 08/17/19 07:45 08/17/19 15:00 Pantoprazole (Protonix) 40 mg EVERY 12 HOURS IVP 08/09/19 21:00 09/08/19 10:44 08/17/19 09:12 Melissa Solares MD Aug 17, 2019 10:44
[2019-08-17] MEDS ORDERED: LORazepam Inj 2mg/ml 1ml IV PRN (11:30)
--- NOTE | 2019-08-17 11:40 | Diagnostic Imaging Report ---
Indication: Repositioning of endotracheal tube Comparison: 08:48 A single view chest radiograph was obtained. Findings: Performed 11:23 Endotracheal tube is 2 cm above the reese in good position. No change otherwise. IMPRESSION: Endotracheal tube in good position
--- NOTE | 2019-08-17 11:56 | Hematology/Onc Progress Note ---
Assessment/Plan Assessment/Plan # Thrombocytopenia - potential causes multifactorial, evaluate liver and viral etiologies to begin, in this case due to sepsis with septic shock also with cirrhosis and liver disease --> Hep panel and HIV ordered -> neg --> US abd to evaluate for cirrhosis and hsm ordered --> reviewed --> Peripheral smear ordered to evaluate for blasts /schistocytes --> abx and other meds have been reviewed --> ok for ppx if plt >50k w/ either heparin or lovenox --> Transfuse if Plt < 20k and fever, or if Plt < 10k without fever --> okay for permacath change once plt better--> for 08/14 --> plt trend: 43-->83-->237k-->292 # Anemia of chronic disease due to underlying chronic medical issues, multifactorial v Gi bleed --> Anemia workup has been ordered, rule out gi bleed --> No evidence of hemolysis is noted, peripheral smear has been reviewed. --> Hgb goal >7. Transfuse prn. --> Epogen has been started --> HOLD OFF IRON ferritin is >1000 --> Medications have been reviewed --> low threshold for gi evaluation in case has occult + --> hgb 9-->6.7-->9.2 -->10.5-->10.6 --> blood tx: 08/11 # Early sepsis with shock. --> abx as per id, recs noted # Healthcare-associated pneumonia. --> recs reviewed --> abx: jung/micafungin # Severe protein-calorie malnutrition. --> nutritional support # End-stage renal disease --> had as renal hd --> with permacath # History of hypertension. --> per cards, now with Bradycardia. # HypoThyroid # Ngt feedings # Dvt ppx scd's The timing of this note does not necessarily reflect the time of the patient was seen. Greatly appreciate consultation. Subjective Allergies: Coded Allergies: VANCOMYCIN (Unverified Allergy, Unknown, 08/02/19) Subjective 08/11: no bleeding or chills, labs reviewed, no major bleeding, plt less than 50k 08/12: icu, s/p blood, hgb improved to 9.2, 3/2: icu, pending consent for thora and permacath, labs reviewed 08/15: new permacath placed, no bleeding, for hd, plt much improved, started lovenox sq 08/16: ett to be adjusted, bp on high end, micafungin started, possible bronch Objective Objective Current Medications Medications (Trade) Dose Ordered Sig/Javier Route PRN Reason Start Time Stop Time Status Last Admin Dose Admin Acetaminophen (Tylenol) 650 mg Q4H PRN ORAL Mild Pain (Pain Scale 1-3) 08/17/19 07:45 08/17/19 15:00 Al Hydroxide/Mg Hydroxide (Mylanta) 15 ml Q1H PRN ORAL gi upset 08/17/19 07:45 08/17/19 15:00 Atropine Sulfate (Atropine) 0.5 mg Q5M PRN IV bpm less than 45 08/17/19 07:45 08/17/19 15:00 Atropine Sulfate (Atropine) 1 mg Q4H PRN IVP Per rx protocol 08/13/19 08:30 09/12/19 08:29 Chlorhexidine Gluconate (Nae-Hex 2%) 1 applic DAILY@2000 TOPIC 08/15/19 20:00 09/14/19 19:59 08/16/19 21:34 Dextrose (Dextrose 50%) 50 ml Q30M PRN IV Hypoglycemia 08/11/19 10:30 09/04/19 17:44 08/17/19 06:07 Dextrose/Sodium Chloride 1,000 ml @ 20 mls/hr Q24H IV 08/15/19 10:30 09/12/19 10:29 08/16/19 12:26 Diphenhydramine HCl (Benadryl) 25 mg Q15M PRN IVP Itching 08/17/19 07:45 08/17/19 15:00 Diphenhydramine HCl (Benadryl) 50 mg Q4H PRN IVP Itching 08/09/19 14:30 09/08/19 14:29 08/13/19 02:39 Enoxaparin Sodium (Lovenox) 30 mg DAILY SUBQ 08/18/19 09:00 09/17/19 08:59 UNV Epoetin Thomas (Epoetin Thomas(ESRD on dialysis)) 4,000 unit THU-THU-THU SUBQ 08/12/19 21:00 09/11/19 20:59 08/15/19 20:59 Fentanyl Citrate (Sublimaze 100 mcg/2 mL) 25 mcg Q10M PRN IV Moderate Pain (Pain Scale 4-6) 08/17/19 07:45 08/17/19 15:00 Heparin Sodium/ Sodium Chloride (Heparin 1000 units/500ml Premix) 1,000 unit ONCE PRN IV picc line placement 08/16/19 13:00 08/18/19 12:59 Hydralazine HCl (Apresoline) 5 mg Q30M PRN IV SBP>160 OR___/DBP>90 OR___ 08/17/19 07:45 08/17/19 15:00 Hydralazine HCl (Apresoline) 25 mg Q6H PRN IV For High Blood Pressure 08/14/19 01:45 09/13/19 01:44 08/17/19 06:07 Levothyroxine Sodium (Synthroid) 75 mcg DAILY IV 08/13/19 09:00 09/12/19 08:59 08/17/19 09:23 Lidocaine HCl (Xylocaine 1% 30ml) 30 ml ONCE PRN INJ picc placement 08/16/19 13:00 08/18/19 12:59 Lorazepam (Ativan 2mg/ml 1ml) 1 mg Q3H PRN IV For Anxiety 08/17/19 11:30 08/24/19 11:29 Meropenem 500 mg/ Sodium Chloride 55 ml @ 110 mls/hr EVERY 12 HOURS IVPB 08/13/19 21:00 08/18/19 20:59 08/17/19 09:23 Metoclopramide HCl (Reglan) 5 mg Q8H PRN IVP Nausea & Vomiting 08/09/19 12:39 09/08/19 12:38 Micafungin Sodium 100 mg/Sodium Chloride 110 ml @ 110 mls/hr Q24H IVPB 08/16/19 14:00 08/23/19 13:59 08/16/19 14:00 Midazolam HCl (Versed 2mg/2ml vial) 1 mg Q15M PRN IVP For Anxiety 08/17/19 07:45 08/17/19 15:00 Nitroglycerin (Nitro-Bid) 1 inch Q6HR TOPIC 08/09/19 12:39 09/08/19 12:38 08/17/19 06:05 Ondansetron HCl (Zofran) 4 mg Q1H PRN IVP Nausea & Vomiting 08/17/19 07:45 08/17/19 15:00 Pantoprazole (Protonix) 40 mg EVERY 12 HOURS IVP 08/09/19 21:00 09/08/19 10:44 08/17/19 09:12 Last 24 Hour Vital Signs Date Time Temp Pulse Resp B/P (MAP) Pulse Ox O2 Delivery O2 Flow Rate FiO2 08/17/19 11:16 59 18 50 08/17/19 11:00 59 29 173/78 (109) 99 08/17/19 10:08 64 18 50 08/17/19 10:00 86 23 173/88 (116) 98 08/17/19 09:04 61 18 100 08/17/19 09:02 63 18 100 08/17/19 09:00 70 25 144/73 (96) 100 08/17/19 08:20 64 18 50 08/17/19 08:02 61 21 168/71 (103) 100 08/17/19 08:00 100 08/17/19 08:00 Mechanical Ventilator Mechanical Ventilator Mechanical Ventilator 08/17/19 07:36 66 08/17/19 07:00 61 39 158/71 (100) 98 08/17/19 07:00 100 Bi-Pap 30 08/17/19 06:07 173/72 08/17/19 06:05 173/72 08/17/19 06:00 65 22 173/72 (105) 100 08/17/19 05:15 58 18 100 30 08/17/19 05:00 30 08/17/19 05:00 60 41 154/89 (110) 100 08/17/19 04:00 Bi-pap Bi-pap Bi-pap 08/17/19 04:00 59 08/17/19 04:00 98.0 70 70 170/92 (118) 100 08/17/19 03:00 68 24 154/71 (98) 99 08/17/19 02:58 79 22 99 30 08/17/19 02:00 73 22 143/74 (97) 98 08/17/19 01:10 71 26 99 30 08/17/19 01:00 82 29 154/85 (108) 99 08/17/19 00:16 162/82 08/17/19 00:00 56 08/17/19 00:00 70 38 162/82 (108) 100 08/17/19 00:00 Bi-pap Bi-pap Bi-pap 08/17/19 00:00 30 08/16/19 23:20 69 29 99 30 08/16/19 23:20 69 29 99 Bi-Pap 30 08/16/19 23:00 98.4 62 25 153/71 (98) 100 08/16/19 22:00 69 35 151/67 (95) 97 08/16/19 21:05 70 23 98 30 08/16/19 21:00 74 26 154/71 (98) 99 08/16/19 20:00 56 08/16/19 20:00 Bi-pap Bi-pap Bi-pap 08/16/19 20:00 98.2 76 32 165/79 (107) 98 08/16/19 20:00 30 08/16/19 19:10 70 22 96 30 08/16/19 19:10 96 Bi-Pap 30 08/16/19 19:00 66 23 153/67 (95) 99 08/16/19 18:00 66 23 159/78 (105) 96 08/16/19 17:20 128/75 08/16/19 17:00 56 16 177/73 (107) 98 08/16/19 16:52 58 16 98 30 08/16/19 16:00 57 17 143/72 (95) 98 08/16/19 16:00 Bi-pap Bi-pap Bi-pap 08/16/19 16:00 64 08/16/19 16:00 98.1 08/16/19 15:18 56 16 99 30 08/16/19 15:00 59 22 163/90 (114) 91 08/16/19 14:00 48 21 151/71 (97) 98 08/16/19 13:00 60 21 147/85 (105) 99 08/16/19 12:40 64 22 97 30 08/16/19 12:35 56 08/16/19 12:26 142/82 08/16/19 12:00 Bi-pap Bi-pap Bi-pap 08/16/19 12:00 30 08/16/19 12:00 63 13 141/80 (100) 100 3/3/20 11:00 69 20 118/73 (88) 99 08/16/19 10:44 58 19 98 30 08/16/19 10:00 54 24 147/80 (102) 99 08/16/19 09:00 54 26 147/80 (102) 99 08/16/19 08:54 55 16 97 30 08/16/19 08:00 58 08/16/19 08:00 56 26 152/66 (94) 96 08/16/19 08:00 Bi-pap Bi-pap Bi-pap 08/16/19 08:00 30 08/16/19 08:00 97.4 08/16/19 07:00 56 23 171/76 (107) 98 08/16/19 06:42 98 Bi-Pap 40 08/16/19 06:42 47 17 99 30 08/16/19 06:18 175/82 08/16/19 06:00 56 20 175/82 (113) 98 56 08/16/19 05:25 57 22 99 40 08/16/19 05:00 Bi-pap Bi-pap Bi-pap 08/16/19 05:00 52 16 183/71 (108) 97 52 08/16/19 04:00 97.0 53 25 168/73 (104) 96 53 08/16/19 04:00 54 08/16/19 04:00 55 08/16/19 03:27 55 20 99 40 08/16/19 03:00 60 33 174/69 (104) 98 60 08/16/19 02:00 61 26 122/71 (88) 99 08/16/19 01:34 61 18 98 40 08/16/19 01:00 59 21 153/75 (101) 100 59 08/16/19 00:49 176/84 08/16/19 00:00 60 08/16/19 00:00 97.5 62 24 166/77 (106) 97 08/16/19 00:00 55 08/16/19 00:00 Bi-pap Bi-pap Bi-pap 08/15/19 23:45 60 15 99 40 08/15/19 23:00 60 26 167/81 (109) 97 60 08/15/19 22:00 58 25 160/77 (104) 98 08/15/19 21:24 61 16 97 40 08/15/19 21:00 58 14 164/84 (110) 98 08/15/19 20:00 52 20 156/74 (101) 98 52 08/15/19 20:00 53 08/15/19 20:00 55 08/15/19 20:00 Bi-pap Bi-pap Bi-pap 08/15/19 19:40 97 Bi-Pap 40 08/15/19 19:39 53 19 97 40 08/15/19 19:00 61 19 144/71 (95) 94 08/15/19 18:17 57 22 161/80 (107) 97 08/15/19 18:15 177/82 08/15/19 18:09 63 26 177/82 (113) 97 08/15/19 18:08 176/69 08/15/19 18:00 59 19 176/69 (104) 98 08/15/19 17:15 50 20 98 40 08/15/19 17:05 52 12 152/90 (110) 98 08/15/19 17:00 51 13 163/71 (101) 98 08/15/19 16:00 59 08/15/19 16:00 97.5 54 16 159/72 (101) 99 08/15/19 16:00 Bi-pap Bi-pap Bi-pap 08/15/19 15:10 56 23 100 40 08/15/19 15:00 53 19 151/71 (97) 99 08/15/19 14:00 57 18 145/65 (91) 99 08/15/19 13:39 55 08/15/19 13:13 71 23 99 45 08/15/19 13:00 52 22 164/73 (103) 97 08/15/19 12:00 Bi-pap Bi-pap Bi-pap 08/15/19 12:00 45 08/15/19 12:00 97.5 65 28 154/83 (106) 96 08/15/19 12:00 63 Intake and Output 08/16/19 08/17/19 19:00 07:00 Intake Total 420 ml 275 ml Output Total 0 ml 236 ml Balance 420 ml 39 ml IV Total 420 ml 275 ml Output Urine Total 0 ml 0 ml Other 236 ml Labs Test 08/15/19 08:05 08/16/19 09:50 08/16/19 21:20 08/17/19 04:05 White Blood Count 5.9 K/UL (4.8-10.8) 5.1 K/UL (4.8-10.8) 5.7 K/UL (4.8-10.8) Red Blood Count 3.45 M/UL (4.20-5.40) 3.89 M/UL (4.20-5.40) 3.53 M/UL (4.20-5.40) Hemoglobin 10.5 G/DL (12.0-16.0) 11.6 G/DL (12.0-16.0) 10.6 G/DL (12.0-16.0) Hematocrit 30.2 % (37.0-47.0) 34.5 % (37.0-47.0) 31.8 % (37.0-47.0) Mean Corpuscular Volume 87 FL (80-99) 89 FL (80-99) 90 FL (80-99) Mean Corpuscular Hemoglobin 30.4 PG (27.0-31.0) 29.8 PG (27.0-31.0) 30.1 PG (27.0-31.0) Mean Corpuscular Hemoglobin Concent 34.8 G/DL (32.0-36.0) 33.7 G/DL (32.0-36.0) 33.4 G/DL (32.0-36.0) Red Cell Distribution Width 15.2 % (11.6-14.8) 16.7 % (11.6-14.8) 17.8 % (11.6-14.8) Platelet Count 237 K/UL (150-450) 307 K/UL (150-450) 292 K/UL (150-450) Mean Platelet Volume 7.8 FL (6.5-10.1) 6.4 FL (6.5-10.1) 6.6 FL (6.5-10.1) Neutrophils (%) (Auto) 50.7 % (45.0-75.0) 56.4 % (45.0-75.0) 37.7 % (45.0-75.0) Lymphocytes (%) (Auto) 38.9 % (20.0-45.0) 34.1 % (20.0-45.0) 51.2 % (20.0-45.0) Monocytes (%) (Auto) 8.3 % (1.0-10.0) 7.9 % (1.0-10.0) 9.0 % (1.0-10.0) Eosinophils (%) (Auto) 1.0 % (0.0-3.0) 0.6 % (0.0-3.0) 0.6 % (0.0-3.0) Basophils (%) (Auto) 1.0 % (0.0-2.0) 1.0 % (0.0-2.0) 1.6 % (0.0-2.0) Sodium Level 147 MMOL/L (136-145) 145 MMOL/L (136-145) Potassium Level 3.4 MMOL/L (3.5-5.1) 3.5 MMOL/L (3.5-5.1) Chloride Level 109 MMOL/L (98-107) 109 MMOL/L (98-107) Carbon Dioxide Level 27 MMOL/L (21-32) 28 MMOL/L (21-32) Anion Gap 11 mmol/L (5-15) 9 mmol/L (5-15) Blood Urea Nitrogen 42 mg/dL (7-18) 39 mg/dL (7-18) Creatinine 5.0 MG/DL (0.55-1.30) 4.7 MG/DL (0.55-1.30) Estimat Glomerular Filtration Rate 8.4 mL/min (>60) 9.0 mL/min (>60) Glucose Level 141 MG/DL (74-106) 88 MG/DL (74-106) Calcium Level 9.0 MG/DL (8.5-10.1) 8.9 MG/DL (8.5-10.1) Phosphorus Level 5.1 MG/DL (2.5-4.9) Magnesium Level 2.0 MG/DL (1.8-2.4) Total Bilirubin 0.5 MG/DL (0.2-1.0) 0.5 MG/DL (0.2-1.0) Aspartate Amino Transf (AST/SGOT) 20 U/L (15-37) 19 U/L (15-37) Alanine Aminotransferase (ALT/SGPT) 8 U/L (12-78) < 6 U/L (12-78) Alkaline Phosphatase 120 U/L (46-116) 113 U/L (46-116) C-Reactive Protein, Quantitative 3.9 mg/dL (0.00-0.90) Pro-B-Type Natriuretic Peptide > 34714 pg/mL (0-125) Total Protein 5.5 G/DL (6.4-8.2) 5.4 G/DL (6.4-8.2) Albumin 1.3 G/DL (3.4-5.0) 1.3 G/DL (3.4-5.0) Globulin 4.2 g/dL 4.1 g/dL Albumin/Globulin Ratio 0.3 (1.0-2.7) 0.3 (1.0-2.7) Prothrombin Time 12.4 SEC (9.30-11.50) 12.5 SEC (9.30-11.50) Prothromb Time International Ratio 1.2 (0.9-1.1) 1.2 (0.9-1.1) Test 08/17/19 08:46 Arterial Blood pH 7.486 (7.350-7.450) Arterial Blood Partial Pressure CO2 35.3 mmHg (35.0-45.0) Arterial Blood Partial Pressure O2 121.4 mmHg (75.0-100.0) Arterial Blood HCO3 26.1 mmol/L (22.0-26.0) Arterial Blood Oxygen Saturation 97.4 % (95-100) Arterial Blood Base Excess 2.7 (-2-2) Cuauhtemoc Test Positive Height (Feet): 5 Height (Inches): 0.33 Weight (Pounds): 99 Objective gen: nad pulm: on trach+ cv: rrr, no gmr abd: sfot, nt, nd ext: no cce Gio Rob MD Aug 17, 2019 11:56
[2019-08-17] MEDS: MICAFUNGIN IVPB SCH (13:42)
[2019-08-17] MEDS: NS IVPB SCH (13:42)
--- NOTE | 2019-08-17 14:52 | Surgery Progress Note ---
Surgery Progress Note Subjective Procedure Performed Right Femoral Temporary Hemodialysis catheter Insertion Additional Comments line replaced labs noted exam stable Objective Last 24 Hour Vital Signs Date Time Temp Pulse Resp B/P (MAP) Pulse Ox O2 Delivery O2 Flow Rate FiO2 08/17/19 14:00 67 24 167/76 (106) 97 08/17/19 13:00 67 19 161/73 (102) 100 08/17/19 12:59 69 18 50 08/17/19 12:42 163/83 08/17/19 12:08 175/78 08/17/19 12:00 97.3 56 18 181/76 (111) 99 08/17/19 12:00 70 08/17/19 12:00 Mechanical Ventilator Mechanical Ventilator Mechanical Ventilator 08/17/19 11:45 57 08/17/19 11:16 59 18 50 08/17/19 11:00 59 29 173/78 (109) 99 08/17/19 10:08 64 18 50 08/17/19 10:00 86 23 173/88 (116) 98 08/17/19 09:04 61 18 100 08/17/19 09:02 63 18 100 08/17/19 09:00 70 25 144/73 (96) 100 08/17/19 08:20 64 18 50 08/17/19 08:02 61 21 168/71 (103) 100 08/17/19 08:00 100 08/17/19 08:00 Mechanical Ventilator Mechanical Ventilator Mechanical Ventilator 08/17/19 07:36 66 08/17/19 07:00 61 39 158/71 (100) 98 08/17/19 07:00 100 Bi-Pap 30 08/17/19 06:07 173/72 08/17/19 06:05 173/72 08/17/19 06:00 65 22 173/72 (105) 100 08/17/19 05:15 58 18 100 30 08/17/19 05:00 30 08/17/19 05:00 60 41 154/89 (110) 100 08/17/19 04:00 Bi-pap Bi-pap Bi-pap 08/17/19 04:00 59 08/17/19 04:00 98.0 70 70 170/92 (118) 100 08/17/19 03:00 68 24 154/71 (98) 99 08/17/19 02:58 79 22 99 30 08/17/19 02:00 73 22 143/74 (97) 98 08/17/19 01:10 71 26 99 30 08/17/19 01:00 82 29 154/85 (108) 99 08/17/19 00:16 162/82 08/17/19 00:00 56 08/17/19 00:00 70 38 162/82 (108) 100 08/17/19 00:00 Bi-pap Bi-pap Bi-pap 08/17/19 00:00 30 08/16/19 23:20 69 29 99 30 08/16/19 23:20 69 29 99 Bi-Pap 30 08/16/19 23:00 98.4 62 25 153/71 (98) 100 08/16/19 22:00 69 35 151/67 (95) 97 08/16/19 21:05 70 23 98 30 08/16/19 21:00 74 26 154/71 (98) 99 08/16/19 20:00 56 08/16/19 20:00 Bi-pap Bi-pap Bi-pap 08/16/19 20:00 98.2 76 32 165/79 (107) 98 08/16/19 20:00 30 08/16/19 19:10 70 22 96 30 08/16/19 19:10 96 Bi-Pap 30 08/16/19 19:00 66 23 153/67 (95) 99 08/16/19 18:00 66 23 159/78 (105) 96 08/16/19 17:20 128/75 08/16/19 17:00 56 16 177/73 (107) 98 08/16/19 16:52 58 16 98 30 08/16/19 16:00 57 17 143/72 (95) 98 08/16/19 16:00 Bi-pap Bi-pap Bi-pap 08/16/19 16:00 64 08/16/19 16:00 98.1 08/16/19 15:18 56 16 99 30 08/16/19 15:00 59 22 163/90 (114) 91 I&O Intake and Output 08/16/19 08/17/19 19:00 07:00 Intake Total 420 ml 275 ml Output Total 0 ml 236 ml Balance 420 ml 39 ml IV Total 420 ml 275 ml Output Urine Total 0 ml 0 ml Other 236 ml Dressing: other Wound: other Drains: other Cardiovascular: RSR Respiratory: decreased breath sounds Abdomen: soft, non-tender, present bowel sounds Extremities: no cyanosis, other Laboratory Tests Test 08/16/19 21:20 08/17/19 04:05 08/17/19 08:46 Prothrombin Time 12.4 SEC (9.30-11.50) H 12.5 SEC (9.30-11.50) H Prothromb Time International Ratio 1.2 (0.9-1.1) H 1.2 (0.9-1.1) H White Blood Count 5.7 K/UL (4.8-10.8) Red Blood Count 3.53 M/UL (4.20-5.40) L Hemoglobin 10.6 G/DL (12.0-16.0) L Hematocrit 31.8 % (37.0-47.0) L Mean Corpuscular Volume 90 FL (80-99) Mean Corpuscular Hemoglobin 30.1 PG (27.0-31.0) Mean Corpuscular Hemoglobin Concent 33.4 G/DL (32.0-36.0) Red Cell Distribution Width 17.8 % (11.6-14.8) H Platelet Count 292 K/UL (150-450) Mean Platelet Volume 6.6 FL (6.5-10.1) Neutrophils (%) (Auto) 37.7 % (45.0-75.0) L Lymphocytes (%) (Auto) 51.2 % (20.0-45.0) H Monocytes (%) (Auto) 9.0 % (1.0-10.0) Eosinophils (%) (Auto) 0.6 % (0.0-3.0) Basophils (%) (Auto) 1.6 % (0.0-2.0) Sodium Level 145 MMOL/L (136-145) Potassium Level 3.5 MMOL/L (3.5-5.1) Chloride Level 109 MMOL/L (98-107) H Carbon Dioxide Level 28 MMOL/L (21-32) Anion Gap 9 mmol/L (5-15) Blood Urea Nitrogen 39 mg/dL (7-18) H Creatinine 4.7 MG/DL (0.55-1.30) H Estimat Glomerular Filtration Rate 9.0 mL/min (>60) Glucose Level 88 MG/DL (74-106) Calcium Level 8.9 MG/DL (8.5-10.1) Total Bilirubin 0.5 MG/DL (0.2-1.0) Aspartate Amino Transf (AST/SGOT) 19 U/L (15-37) Alanine Aminotransferase (ALT/SGPT) < 6 U/L (12-78) L Alkaline Phosphatase 113 U/L (46-116) Total Protein 5.4 G/DL (6.4-8.2) L Albumin 1.3 G/DL (3.4-5.0) L Globulin 4.1 g/dL Albumin/Globulin Ratio 0.3 (1.0-2.7) L Arterial Blood pH 7.486 (7.350-7.450) Arterial Blood Partial Pressure CO2 35.3 mmHg (35.0-45.0) Arterial Blood Partial Pressure O2 121.4 mmHg (75.0-100.0) H Arterial Blood HCO3 26.1 mmol/L (22.0-26.0) H Arterial Blood Oxygen Saturation 97.4 % (95-100) Arterial Blood Base Excess 2.7 (-2-2) H Cuauhtemoc Test Positive Assessment Post-op Diagnosis same Plan Problems: (1) Malnutrition Assessment & Plan: DAILY ESTIMATED NEEDS: Needs based on ESRD+ HD, underweight, wound/ 39.5kg 35-40 kcals/kg 0703-8167 total kcals 1.25-1.8 g protein/kg 49-71 g total protein 20-22 mL/kg 790-869 total fluid mLs NUTRITION DIAGNOSIS: * Increased kcal and protein needs r/t underweight status, HD needs, wuond healing as evidenced by pt is underweight per guidelines, ESRD, on HD, admitted non-blanching erythema wounds @ BL heels and sacrum * Swallowing difficulty R/T dysphagia as evidenced by ANTHROPOLOGY INSTRUCTOR recommends temporary nonoral feeding at this time, s/p NGT insertion, on NGT feeding-> now s/p self removal, NPO. CURRENT TF:NPO PO DIET RECOMMENDATIONS: WHEN SAFE FOR ORAL DIET -> renal/ texture per ANTHROPOLOGY INSTRUCTOR ENTERAL NUTRITION RECOMMENDATIONS: W/ GI access: Nepro @ 35ml/hr x 22 hrs to provide 770ml, 1386kcal, 62g prot, 560ml free water * W/ GI access, resume TF on Nepro * Initiate Nepro @ 15ml/hr x 6 hrs, advance 10ml q 4-6 hrs as tolerated to goal rate. * Hold 1 hour before and after Synthroid med * HOB over 30 degrees/ water flush per MD. ADDITIONAL RECOMMENDATIONS: 1) Calibrated bed scale wt for accurate CBW -> daily wt monitoring Per HD record: dry wt on 07/30=39.5kg (87lbs) 2) Wound care: (W/ GI access) add Nephorivte x 1 + Balta BID 3) Monitor NPO status: without GI access at this time, s/p pulling out NGT 4) Monitor for hypoglycemia while NPO 5) Monitor for continuity of HD (2) Septic arthritis Assessment & Plan: Pt presented on admission with generalized scaly rash . pt noted to be restless and scratching at skin. Bleeding from oral mucosa noted. Joint deformity noted to R shoulder. Surgical incision approximated with 11 sutures. Erythema but no exudate,or elevation in skin temp at site of incision. Historical incision R hip that is tunneled.Small amt seropurulent exudate noted. Periwound is erythematous,but no elevation in skin temp noted. No odor noted. Non-blanching erythema noted to sacrum. Perianal area is erythematous and excoriated. L heel is boggy with non-blanching erythema. R heel is soft with non-blanching erythema. No evidence of skin breakdown to all other bony prominences. Tx.plan: Cover R shoulder with Drsg and change daily and prn. Cleanse R hip wound with Saline. Apply Therahoney.Apply Cavilon Skin Barrier periwound. Cover with Optifoam drsg. Change every 3 days and prn. Apply Moisture Barrier Paste to perianal area and buttocks. Cover Sacrum with Optifoam drsg. Change every 3 days and prn. Apply Cavilon Skin Barrier to both heels. Cover each heel with Optifoam drsg. Change every 7 days and prn. APM/ELVIA Mattress overlay. Reposition at least every 2hours or as tolerated. Off-load heels with pillow. HD cath necessary HD as renal likely will need intubation (3) Wound, open, hip or thigh with complication Assessment & Plan: slow healing will need nutritional optimization difficult ng tube peg when stable sutures removed from right shoulder comfortable (4) Abscess of right hip (5) possible septic arthritis Camilo James Aug 17, 2019 14:52
--- NOTE | 2019-08-17 15:00 | Procedure Note ---
DATE OF PROCEDURE: 08/17/2019 GASTROENTEROLOGY PROCEDURE PROCEDURE: Upper gastrointestinal endoscopy with biopsy and gastrostomy tube placement. SURGEON: Cristy Elizondo M.D. ANESTHESIA: Please see the separate anesthesiologist notes for details. ANESTHESIOLOGIST: Niya Walker M.D. PRE-ENDOSCOPIC DIAGNOSIS: Dysphagia. POST-ENDOSCOPIC DIAGNOSES: 1. Severe lower esophageal esophagitis, status post biopsy. 2. Status post gastrostomy tube placement. DESCRIPTION OF PROCEDURE: The procedure, its risks, indications, alternatives, and possible complications including but not limited to bleeding, infection, perforation, , and anesthesia complications were explained to the patient's daughter and an informed consent was obtained. Specifically, it was explained to the daughter that the patient will have to be intubated for the procedure and will likely remain on the ventilator for long-term basis given her respiratory failure. The patient was then sedated and intubated and diagnostic upper endoscope was introduced into oropharynx and advanced to the duodenum. The endoscope was then gradually withdrawn and the mucosa examined carefully. Examination of the upper gastrointestinal mucosa revealed severe distal esophagitis involving the circumferential bottom half of the esophagus. Biopsies were sent for pathology as well as for viral cultures. The location for placement of the gastrostomy tube was then identified by palpation and transillumination techniques. The outside skin was sterilely prepared, anesthetized, and incised and the trocar needle was placed and the gastrostomy was pulled using the standard pull technique. Position was verified endoscopically. The endoscope was removed after biopsies of the esophagus were obtained and the patient was left to recovery in good condition. COMPLICATIONS: None. RECOMMENDATIONS: 1. Follow up biopsy results. 2. Continue twice daily proton pump inhibitor. 3. Begin tube feedings tomorrow. 4. Ventilator care per Dr. Crzu. Thank you for asking me to participate in the care of this patient. Cristy Elizondo M.D. DR: YULIET JOB#: [id number] CC:
--- NOTE | 2019-08-17 15:09 | Nephrology Progress Note ---
Assessment/Plan Problem List: (1) ESRD (end stage renal disease) on dialysis (2) Malnutrition (3) Anemia in CKD (chronic kidney disease) (4) Hypotension (5) Thrombocytopenia (6) Sepsis Assessment: klebsiella in blood Assessment -Early sepsis with shock. -Healthcare-associated pneumonia. -Severe protein-calorie malnutrition. -Thrombocytopenia. - End-stage renal disease. - History of hypertension. - Bradycardia. - HypoThyroid Plan Patient underwent PEG basement Received partial dialysis yesterday due to low blood pressure Due for dialysis tomorrow Permacath was removed on August 12 Dialysis 08/11 Transfusion as needed Patient had hematemesis meds IV as possible Surveillance blood cultures tomorrow Plan to put the permacath back in on Thursday if cultures are negative keep BP and BS in check Inflammatory markers per orders Subjective ROS Limited/Unobtainable: Yes Objective Objective Last 24 Hour Vital Signs Date Time Temp Pulse Resp B/P (MAP) Pulse Ox O2 Delivery O2 Flow Rate FiO2 08/17/19 14:56 64 18 50 08/17/19 14:00 67 24 167/76 (106) 97 08/17/19 13:00 67 19 161/73 (102) 100 08/17/19 12:59 69 18 70 08/17/19 12:42 163/83 08/17/19 12:08 175/78 08/17/19 12:00 97.3 56 18 181/76 (111) 99 08/17/19 12:00 70 08/17/19 12:00 Mechanical Ventilator Mechanical Ventilator Mechanical Ventilator 08/17/19 11:45 57 08/17/19 11:16 59 18 70 08/17/19 11:00 59 29 173/78 (109) 99 08/17/19 10:08 64 18 70 08/17/19 10:00 86 23 173/88 (116) 98 08/17/19 09:04 61 18 100 08/17/19 09:02 63 18 100 08/17/19 09:00 70 25 144/73 (96) 100 08/17/19 08:20 64 18 100 08/17/19 08:02 61 21 168/71 (103) 100 08/17/19 08:00 100 08/17/19 08:00 Mechanical Ventilator Mechanical Ventilator Mechanical Ventilator 08/17/19 07:36 66 08/17/19 07:00 61 39 158/71 (100) 98 08/17/19 07:00 100 Bi-Pap 30 08/17/19 06:07 173/72 08/17/19 06:05 173/72 08/17/19 06:00 65 22 173/72 (105) 100 08/17/19 05:15 58 18 100 30 08/17/19 05:00 30 08/17/19 05:00 60 41 154/89 (110) 100 08/17/19 04:00 Bi-pap Bi-pap Bi-pap 08/17/19 04:00 59 08/17/19 04:00 98.0 70 70 170/92 (118) 100 08/17/19 03:00 68 24 154/71 (98) 99 08/17/19 02:58 79 22 99 30 08/17/19 02:00 73 22 143/74 (97) 98 08/17/19 01:10 71 26 99 30 08/17/19 01:00 82 29 154/85 (108) 99 08/17/19 00:16 162/82 08/17/19 00:00 56 08/17/19 00:00 70 38 162/82 (108) 100 08/17/19 00:00 Bi-pap Bi-pap Bi-pap 08/17/19 00:00 30 08/16/19 23:20 69 29 99 30 08/16/19 23:20 69 29 99 Bi-Pap 30 08/16/19 23:00 98.4 62 25 153/71 (98) 100 08/16/19 22:00 69 35 151/67 (95) 97 08/16/19 21:05 70 23 98 30 08/16/19 21:00 74 26 154/71 (98) 99 08/16/19 20:00 56 08/16/19 20:00 Bi-pap Bi-pap Bi-pap 08/16/19 20:00 98.2 76 32 165/79 (107) 98 08/16/19 20:00 30 08/16/19 19:10 70 22 96 30 08/16/19 19:10 96 Bi-Pap 30 08/16/19 19:00 66 23 153/67 (95) 99 08/16/19 18:00 66 23 159/78 (105) 96 08/16/19 17:20 128/75 08/16/19 17:00 56 16 177/73 (107) 98 08/16/19 16:52 58 16 98 30 08/16/19 16:00 57 17 143/72 (95) 98 08/16/19 16:00 Bi-pap Bi-pap Bi-pap 08/16/19 16:00 64 08/16/19 16:00 98.1 08/16/19 15:18 56 16 99 30 Intake and Output 08/16/19 08/17/19 19:00 07:00 Intake Total 420 ml 275 ml Output Total 0 ml 236 ml Balance 420 ml 39 ml IV Total 420 ml 275 ml Output Urine Total 0 ml 0 ml Other 236 ml Laboratory Tests 08/16/19 21:20: Prothrombin Time 12.4H, Prothromb Time International Ratio 1.2H 08/17/19 04:05: Prothrombin Time 12.5H, Prothromb Time International Ratio 1.2H, White Blood Count 5.7, Red Blood Count 3.53L, Hemoglobin 10.6L, Hematocrit 31.8L, Mean Corpuscular Volume 90, Mean Corpuscular Hemoglobin 30.1, Mean Corpuscular Hemoglobin Concent 33.4, Red Cell Distribution Width 17.8H, Platelet Count 292, Mean Platelet Volume 6.6, Neutrophils (%) (Auto) 37.7L, Lymphocytes (%) (Auto) 51.2H, Monocytes (%) (Auto) 9.0, Eosinophils (%) (Auto) 0.6, Basophils (%) (Auto ) 1.6, Sodium Level 145, Potassium Level 3.5, Chloride Level 109H, Carbon Dioxide Level 28, Anion Gap 9, Blood Urea Nitrogen 39H, Creatinine 4.7H, Estimat Glomerular Filtration Rate 9.0, Glucose Level 88, Calcium Level 8.9, Total Bilirubin 0.5, Aspartate Amino Transf (AST/SGOT) 19, Alanine Aminotransferase (ALT/SGPT) < 6L, Alkaline Phosphatase 113, Total Protein 5.4L, Albumin 1.3L, Globulin 4.1, Albumin/Globulin Ratio 0.3L 08/17/19 08:46: Arterial Blood pH 7.486H, Arterial Blood Partial Pressure CO2 35.3, Arterial Blood Partial Pressure O2 121.4H, Arterial Blood HCO3 26.1H, Arterial Blood Oxygen Saturation 97.4, Arterial Blood Base Excess 2.7H, Cuauhtemoc Test Positive Height (Feet): 5 Height (Inches): 0.33 Weight (Pounds): 99 General Appearance: lethargic EENT: other - BIPAP Cardiovascular: normal rate Respiratory/Chest: decreased breath sounds Abdomen: soft Genitourinary/Rectal: other - PEG Objective no change William Blackwood MD Aug 17, 2019 15:09
[2019-08-17] MEDS: Dyna-Hex 2% Top Sol 2oz TOPIC SCH (20:00)
[2019-08-17] MEDS: Epoetin Alfa-EPBX(ESRD on dialysis)4000 units/ml vial SUBQ SCH (21:01)
[2019-08-18] VITALS (24 sets, daily range): BP systolic 97–181; BP diastolic 60–110
--- NOTE | 2019-08-18 02:02 | Progress Note ---
DATE: 08/17/2019 CARDIOLOGY PROGRESS NOTE SUBJECTIVE: The patient is status post G-tube placement today. Endoscopy performed by Dr. Elizondo. No complications noted yesterday, but dialysis was given in half the usual period due to low blood pressure parameters. Today, blood pressure has remained stable. Pulse rate with no pauses and no hemodynamically significant bradycardia during the procedure. OBJECTIVE: VITAL SIGNS: Blood pressure 167/76, pulse 67, respirations 24, and afebrile. LUNGS: Bilateral breath sounds. Few rhonchi. CARDIAC: Regular rhythm and rate. Normal S1, S2 with a 1/6 systolic murmur at the base. ABDOMEN: Soft and nontender. G-tube site with no drainage. Now with oral endotracheal tube and ventilator support. EXTREMITIES: Trace edema. IMPRESSION: 1. Respiratory failure. 2. Status post G-tube. 3. End-stage renal disease. 4. Sinus bradycardia, but with sinus node disease. 5. Severe protein-calorie malnutrition. 6. Thrombocytopenia. 7. Hypertensive heart disease with chronic diastolic congestive heart failure. PLAN: 1. Ventilator support with weaning as able. 2. Hemodialysis with ultrafiltration. 3. No beta-blockers or any therapies with negative chronotropic potential. 4. Titrate antihypertensive regimen. 5. Antimicrobials. 6. Nutrition by feeding tube once cleared by gastrointestinal attending. Abel Stubbs M.D. DR: ALICIA JOB#: [id number] CC:
[2019-08-18] MEDS: Nitroglycerin 2% oint pkt TOPIC SCH ×4 (05:54→18:00)
--- NOTE | 2019-08-18 06:33 | Hematology/Onc Progress Note ---
Assessment/Plan Assessment/Plan # Thrombocytopenia - potential causes multifactorial, evaluate liver and viral etiologies to begin, in this case due to sepsis with septic shock also with cirrhosis and liver disease --> Hep panel and HIV ordered -> neg --> US abd to evaluate for cirrhosis and hsm ordered --> reviewed --> Peripheral smear ordered to evaluate for blasts /schistocytes --> abx and other meds have been reviewed --> ok for ppx if plt >50k w/ either heparin or lovenox --> Transfuse if Plt < 20k and fever, or if Plt < 10k without fever --> okay for permacath change once plt better--> for 08/14 --> plt trend: 43-->83-->237k-->292 # Anemia of chronic disease due to underlying chronic medical issues, multifactorial v Gi bleed --> Anemia workup has been ordered, rule out gi bleed --> No evidence of hemolysis is noted, peripheral smear has been reviewed. --> Hgb goal >7. Transfuse prn. --> Epogen has been started --> HOLD OFF IRON ferritin is >1000 --> Medications have been reviewed --> low threshold for gi evaluation in case has occult + --> hgb 9-->6.7-->9.2 -->10.5-->10.6 --> blood tx: 08/11 # Early sepsis with shock. --> abx as per id, recs noted # Healthcare-associated pneumonia. --> recs reviewed --> abx: jung/micafungin # Severe protein-calorie malnutrition. --> nutritional support # End-stage renal disease --> had as renal hd --> with permacath # History of hypertension. --> per cards, now with Bradycardia. # resp failure s/p vent # HypoThyroid # Ngt feedings # Dvt ppx scd's The timing of this note does not necessarily reflect the time of the patient was seen. Greatly appreciate consultation. Subjective Constitutional: Denies: no symptoms, chills, fever, malaise, weakness, other HEENT: Denies: no symptoms, eye pain, blurred vision, tearing, double vision, ear pain, ear discharge, nose pain, nose congestion, throat pain, throat swelling, mouth pain, mouth swelling, other Cardiovascular: Denies: no symptoms, chest pain, edema, irregular heart rate, lightheadedness, palpitations, syncope, other Respiratory: Denies: no symptoms, cough, shortness of breath, SOB with excertion, SOB at rest, sputum, wheezing, other Gastrointestinal/Abdominal: Denies: no symptoms, abdomen distended, abdominal pain, black stools, tarry stools, blood in stool, constipated, diarrhea, difficulty swallowing, nausea, poor appetite, poor fluid intake, rectal bleeding , vomiting, other Genitourinary: Denies: no symptoms, burning, discharge, frequency, flank pain, hematuria, incontinence, pain, urgency, other Neurologic/Psychiatric: Denies: no symptoms, anxiety, depressed, emotional problems, headache, numbness, paresthesia, pre-existing deficit, seizure, tingling, tremors, weakness, other Endocrine: Denies: no symptoms, excessive sweating, flushing, intolerance to cold, intolerance to heat, increased hunger, increased thirst, increased urine, unexplained weight gain, unexplained weight loss, other Allergies: Coded Allergies: VANCOMYCIN (Unverified Allergy, Unknown, 08/02/19) Subjective 08/11: no bleeding or chills, labs reviewed, no major bleeding, plt less than 50k 08/12: icu, s/p blood, hgb improved to 9.2, 08/14: icu, pending consent for thora and permacath, labs reviewed 08/15: new permacath placed, no bleeding, for hd, plt much improved, started lovenox sq 08/16: ett to be adjusted, bp on high end, micafungin started, possible bronch 08/17: weaning as per pulm, no events otherwise, labs noted Objective Objective Current Medications Medications (Trade) Dose Ordered Sig/Javier Route PRN Reason Start Time Stop Time Status Last Admin Dose Admin Atropine Sulfate (Atropine) 1 mg Q4H PRN IVP Per rx protocol 08/13/19 08:30 09/12/19 08:29 Chlorhexidine Gluconate (Nae-Hex 2%) 1 applic DAILY@1999 TOPIC 08/15/19 20:00 09/14/19 19:59 08/17/19 20:00 Dextrose (Dextrose 50%) 50 ml Q30M PRN IV Hypoglycemia 08/11/19 10:30 09/04/19 17:44 08/17/19 18:21 Dextrose/Sodium Chloride 1,000 ml @ 20 mls/hr Q24H IV 08/15/19 10:30 09/12/19 10:29 08/16/19 12:26 Diphenhydramine HCl (Benadryl) 50 mg Q4H PRN IVP Itching 08/09/19 14:30 09/08/19 14:29 08/13/19 02:39 Epoetin Thomas (Epoetin Thomas(ESRD on dialysis)) 4,000 unit THU-THU-THU SUBQ 08/12/19 21:00 09/11/19 20:59 08/17/19 21:01 Heparin Sodium/ Sodium Chloride (Heparin 1000 units/500ml Premix) 1,000 unit ONCE PRN IV picc line placement 08/16/19 13:00 08/18/19 12:59 Hydralazine HCl (Apresoline) 25 mg Q6H PRN IV For High Blood Pressure 08/14/19 01:45 09/13/19 01:44 08/18/19 05:11 Levothyroxine Sodium (Synthroid) 75 mcg DAILY IV 08/13/19 09:00 09/12/19 08:59 08/17/19 09:23 Lidocaine HCl (Xylocaine 1% 30ml) 30 ml ONCE PRN INJ picc placement 08/16/19 13:00 08/18/19 12:59 Lorazepam (Ativan 2mg/ml 1ml) 1 mg Q3H PRN IV For Anxiety 08/17/19 11:30 08/24/19 11:29 Meropenem 500 mg/ Sodium Chloride 55 ml @ 110 mls/hr EVERY 12 HOURS IVPB 08/13/19 21:00 08/18/19 20:59 08/17/19 21:00 Metoclopramide HCl (Reglan) 5 mg Q8H PRN IVP Nausea & Vomiting 08/09/19 12:39 09/08/19 12:38 Micafungin Sodium 100 mg/Sodium Chloride 110 ml @ 110 mls/hr Q24H IVPB 08/16/19 14:00 08/23/19 13:59 08/17/19 13:42 Nitroglycerin (Nitro-Bid) 1 inch Q6HR TOPIC 08/09/19 12:39 09/08/19 12:38 08/18/19 05:54 Pantoprazole (Protonix) 40 mg EVERY 12 HOURS IVP 08/09/19 21:00 09/08/19 10:44 08/17/19 21:00 Last 24 Hour Vital Signs Date Time Temp Pulse Resp B/P (MAP) Pulse Ox O2 Delivery O2 Flow Rate FiO2 08/18/19 06:00 60 22 149/67 (94) 99 08/18/19 05:54 156/69 08/18/19 05:30 63 19 50 08/18/19 05:11 181/74 08/18/19 05:00 50 18 181/74 (109) 100 08/18/19 04:00 98.2 62 19 174/78 (110) 100 08/18/19 04:00 50 08/18/19 04:00 Mechanical Ventilator Mechanical Ventilator Mechanical Ventilator 08/18/19 04:00 60 08/18/19 03:19 71 18 50 08/18/19 03:00 61 21 170/75 (106) 100 08/18/19 02:00 63 19 172/71 (104) 100 08/18/19 01:04 74 18 50 08/18/19 01:00 61 18 160/73 (102) 100 08/18/19 00:00 50 08/18/19 00:00 98.8 62 21 151/71 (97) 100 08/18/19 00:00 147/74 08/18/19 00:00 Mechanical Ventilator Mechanical Ventilator Mechanical Ventilator 08/17/19 23:05 67 18 50 08/17/19 23:00 65 23 153/74 (100) 100 08/17/19 22:00 66 19 149/72 (97) 100 08/17/19 21:03 66 18 50 08/17/19 21:00 80 30 156/79 (104) 100 08/17/19 20:00 77 08/17/19 20:00 50 08/17/19 20:00 99.0 80 29 164/142 (149) 100 08/17/19 20:00 Mechanical Ventilator Mechanical Ventilator Mechanical Ventilator 08/17/19 19:30 84 18 50 08/17/19 19:00 77 31 151/133 (139) 99 08/17/19 18:00 74 26 158/65 (96) 97 08/17/19 17:33 134/87 08/17/19 17:00 72 23 156/78 (104) 99 08/17/19 16:58 73 18 50 08/17/19 16:00 50 08/17/19 16:00 98.8 64 18 148/80 (102) 97 08/17/19 16:00 Mechanical Ventilator Mechanical Ventilator Mechanical Ventilator 08/17/19 15:55 64 08/17/19 15:00 67 17 169/72 (104) 100 08/17/19 14:56 64 18 50 08/17/19 14:00 67 24 167/76 (106) 97 08/17/19 13:00 67 19 161/73 (102) 100 08/17/19 12:59 69 18 70 08/17/19 12:42 163/83 08/17/19 12:08 175/78 08/17/19 12:00 97.3 56 18 181/76 (111) 99 08/17/19 12:00 70 08/17/19 12:00 Mechanical Ventilator Mechanical Ventilator Mechanical Ventilator 08/17/19 11:45 57 08/17/19 11:16 59 18 70 08/17/19 11:00 59 29 173/78 (109) 99 08/17/19 10:08 64 18 70 08/17/19 10:00 86 23 173/88 (116) 98 08/17/19 09:04 61 18 100 08/17/19 09:02 63 18 100 08/17/19 09:00 70 25 144/73 (96) 100 08/17/19 08:20 64 18 100 08/17/19 08:02 61 21 168/71 (103) 100 08/17/19 08:00 100 08/17/19 08:00 Mechanical Ventilator Mechanical Ventilator Mechanical Ventilator 08/17/19 07:36 66 08/17/19 07:00 61 39 158/71 (100) 98 08/17/19 07:00 100 Bi-Pap 30 08/17/19 06:07 173/72 08/17/19 06:05 173/72 08/17/19 06:00 65 22 173/72 (105) 100 08/17/19 05:15 58 18 100 30 08/17/19 05:00 30 08/17/19 05:00 60 41 154/89 (110) 100 08/17/19 04:00 Bi-pap Bi-pap Bi-pap 08/17/19 04:00 59 08/17/19 04:00 98.0 70 70 170/92 (118) 100 08/17/19 03:00 68 24 154/71 (98) 99 08/17/19 02:58 79 22 99 30 08/17/19 02:00 73 22 143/74 (97) 98 08/17/19 01:10 71 26 99 30 08/17/19 01:00 82 29 154/85 (108) 99 08/17/19 00:16 162/82 08/17/19 00:00 56 08/17/19 00:00 70 38 162/82 (108) 100 08/17/19 00:00 Bi-pap Bi-pap Bi-pap 08/17/19 00:00 30 08/16/19 23:20 69 29 99 30 08/16/19 23:20 69 29 99 Bi-Pap 30 08/16/19 23:00 98.4 62 25 153/71 (98) 100 08/16/19 22:00 69 35 151/67 (95) 97 08/16/19 21:05 70 23 98 30 08/16/19 21:00 74 26 154/71 (98) 99 08/16/19 20:00 56 08/16/19 20:00 Bi-pap Bi-pap Bi-pap 08/16/19 20:00 98.2 76 32 165/79 (107) 98 08/16/19 20:00 30 08/16/19 19:10 70 22 96 30 08/16/19 19:10 96 Bi-Pap 30 08/16/19 19:00 66 23 153/67 (95) 99 08/16/19 18:00 66 23 159/78 (105) 96 08/16/19 17:20 128/75 08/16/19 17:00 56 16 177/73 (107) 98 08/16/19 16:52 58 16 98 30 08/16/19 16:00 57 17 143/72 (95) 98 08/16/19 16:00 Bi-pap Bi-pap Bi-pap 08/16/19 16:00 64 08/16/19 16:00 98.1 08/16/19 15:18 56 16 99 30 08/16/19 15:00 59 22 163/90 (114) 91 08/16/19 14:00 48 21 151/71 (97) 98 08/16/19 13:00 60 21 147/85 (105) 99 08/16/19 12:40 64 22 97 30 08/16/19 12:35 56 08/16/19 12:26 142/82 08/16/19 12:00 Bi-pap Bi-pap Bi-pap 08/16/19 12:00 30 08/16/19 12:00 63 13 141/80 (100) 100 08/16/19 11:00 69 20 118/73 (88) 99 08/16/19 10:44 58 19 98 30 08/16/19 10:00 54 24 147/80 (102) 99 08/16/19 09:00 54 26 147/80 (102) 99 08/16/19 08:54 55 16 97 30 08/16/19 08:00 58 08/16/19 08:00 56 26 152/66 (94) 96 08/16/19 08:00 Bi-pap Bi-pap Bi-pap 08/16/19 08:00 30 08/16/19 08:00 97.4 08/16/19 07:00 56 23 171/76 (107) 98 08/16/19 06:42 98 Bi-Pap 40 08/16/19 06:42 47 17 99 30 Intake and Output 08/17/19 08/18/19 19:00 07:00 Intake Total 385 ml 195 ml Output Total 0 ml 22 ml Balance 385 ml 173 ml IV Total 385 ml 195 ml Output Urine Total 0 ml 0 ml Other 22 ml # Voids 1 # Bowel Movements 1 Labs Test 08/15/19 08:05 08/16/19 09:50 08/16/19 21:20 08/17/19 04:05 White Blood Count 5.9 K/UL (4.8-10.8) 5.1 K/UL (4.8-10.8) 5.7 K/UL (4.8-10.8) Red Blood Count 3.45 M/UL (4.20-5.40) 3.89 M/UL (4.20-5.40) 3.53 M/UL (4.20-5.40) Hemoglobin 10.5 G/DL (12.0-16.0) 11.6 G/DL (12.0-16.0) 10.6 G/DL (12.0-16.0) Hematocrit 30.2 % (37.0-47.0) 34.5 % (37.0-47.0) 31.8 % (37.0-47.0) Mean Corpuscular Volume 87 FL (80-99) 89 FL (80-99) 90 FL (80-99) Mean Corpuscular Hemoglobin 30.4 PG (27.0-31.0) 29.8 PG (27.0-31.0) 30.1 PG (27.0-31.0) Mean Corpuscular Hemoglobin Concent 34.8 G/DL (32.0-36.0) 33.7 G/DL (32.0-36.0) 33.4 G/DL (32.0-36.0) Red Cell Distribution Width 15.2 % (11.6-14.8) 16.7 % (11.6-14.8) 17.8 % (11.6-14.8) Platelet Count 237 K/UL (150-450) 307 K/UL (150-450) 292 K/UL (150-450) Mean Platelet Volume 7.8 FL (6.5-10.1) 6.4 FL (6.5-10.1) 6.6 FL (6.5-10.1) Neutrophils (%) (Auto) 50.7 % (45.0-75.0) 56.4 % (45.0-75.0) 37.7 % (45.0-75.0) Lymphocytes (%) (Auto) 38.9 % (20.0-45.0) 34.1 % (20.0-45.0) 51.2 % (20.0-45.0) Monocytes (%) (Auto) 8.3 % (1.0-10.0) 7.9 % (1.0-10.0) 9.0 % (1.0-10.0) Eosinophils (%) (Auto) 1.0 % (0.0-3.0) 0.6 % (0.0-3.0) 0.6 % (0.0-3.0) Basophils (%) (Auto) 1.0 % (0.0-2.0) 1.0 % (0.0-2.0) 1.6 % (0.0-2.0) Sodium Level 147 MMOL/L (136-145) 145 MMOL/L (136-145) Potassium Level 3.4 MMOL/L (3.5-5.1) 3.5 MMOL/L (3.5-5.1) Chloride Level 109 MMOL/L (98-107) 109 MMOL/L (98-107) Carbon Dioxide Level 27 MMOL/L (21-32) 28 MMOL/L (21-32) Anion Gap 11 mmol/L (5-15) 9 mmol/L (5-15) Blood Urea Nitrogen 42 mg/dL (7-18) 39 mg/dL (7-18) Creatinine 5.0 MG/DL (0.55-1.30) 4.7 MG/DL (0.55-1.30) Estimat Glomerular Filtration Rate 8.4 mL/min (>60) 9.0 mL/min (>60) Glucose Level 141 MG/DL (74-106) 88 MG/DL (74-106) Calcium Level 9.0 MG/DL (8.5-10.1) 8.9 MG/DL (8.5-10.1) Phosphorus Level 5.1 MG/DL (2.5-4.9) Magnesium Level 2.0 MG/DL (1.8-2.4) Total Bilirubin 0.5 MG/DL (0.2-1.0) 0.5 MG/DL (0.2-1.0) Aspartate Amino Transf (AST/SGOT) 20 U/L (15-37) 19 U/L (15-37) Alanine Aminotransferase (ALT/SGPT) 8 U/L (12-78) < 6 U/L (12-78) Alkaline Phosphatase 120 U/L (46-116) 113 U/L (46-116) C-Reactive Protein, Quantitative 3.9 mg/dL (0.00-0.90) Pro-B-Type Natriuretic Peptide > 42596 pg/mL (0-125) Total Protein 5.5 G/DL (6.4-8.2) 5.4 G/DL (6.4-8.2) Albumin 1.3 G/DL (3.4-5.0) 1.3 G/DL (3.4-5.0) Globulin 4.2 g/dL 4.1 g/dL Albumin/Globulin Ratio 0.3 (1.0-2.7) 0.3 (1.0-2.7) Prothrombin Time 12.4 SEC (9.30-11.50) 12.5 SEC (9.30-11.50) Prothromb Time International Ratio 1.2 (0.9-1.1) 1.2 (0.9-1.1) Test 08/17/19 08:46 Arterial Blood pH 7.486 (7.350-7.450) Arterial Blood Partial Pressure CO2 35.3 mmHg (35.0-45.0) Arterial Blood Partial Pressure O2 121.4 mmHg (75.0-100.0) Arterial Blood HCO3 26.1 mmol/L (22.0-26.0) Arterial Blood Oxygen Saturation 97.4 % (95-100) Arterial Blood Base Excess 2.7 (-2-2) Cuauhtemoc Test Positive Height (Feet): 5 Height (Inches): 0.33 Weight (Pounds): 99 Objective gen: nad pulm: on trach+ / vent cv: rrr, no gmr abd: sfot, nt, nd ++ gt ext: no cce Gio Rob MD Aug 18, 2019 06:33
--- NOTE | 2019-08-18 07:46 | General Progress Note ---
Assessment/Plan Problem List: (1) Failure to thrive (0-17) ICD Codes: R62.51 - Failure to thrive (0-17) SNOMED: 153102982 (2) Hypertensive kidney disease ICD Codes: I12.9 - Hypertensive chronic kidney disease with stage 1 through stage 4 chronic kidney disease, or unspecified chronic kidney disease SNOMED: 54305127 (3) Pneumonia ICD Codes: J18.9 - Pneumonia, unspecified organism SNOMED: 503029028 Qualifiers: Qualified Codes: J18.9 - Pneumonia, unspecified organism (4) ESRD (end stage renal disease) ICD Codes: N18.6 - End stage renal disease SNOMED: 72305333 (5) Septic arthritis ICD Codes: M00.9 - Pyogenic arthritis, unspecified SNOMED: 891497026 (6) Thrombocytopenia ICD Codes: D69.6 - Thrombocytopenia, unspecified SNOMED: 060827114 (7) Hypotension ICD Codes: I95.9 - Hypotension, unspecified SNOMED: 48409069 Qualifiers: Qualified Codes: I95.3 - Hypotension of hemodialysis (8) Malnutrition ICD Codes: E46 - Unspecified protein-calorie malnutrition SNOMED: 69891549 Status: stable, not improved, unchanged, deteriorating Assessment/Plan: dc lovenox. check stool ob and h/h cont icu care possible bronch per pulm resp rx/suctioning monitor plts iv PPI iv abx HD bp rx critical and guarded tube feeds per gi Subjective ROS Limited/Unobtainable: No Constitutional: Reports: malaise, weakness HEENT: Reports: no symptoms Cardiovascular: Reports: no symptoms Respiratory: Reports: no symptoms Gastrointestinal/Abdominal: Reports: black stools, tarry stools Genitourinary: Reports: no symptoms Neurologic/Psychiatric: Reports: pre-existing deficit Endocrine: Reports: no symptoms Hematologic/Lymphatic: Reports: anemia Allergies: Coded Allergies: VANCOMYCIN (Unverified Allergy, Unknown, 08/02/19) All Systems: reviewed and negative except above Subjective s/p egd. uncomplicated gt placement. awake and alert. left on the vent. black stool this am. labs pending. Objective Last 24 Hour Vital Signs Date Time Temp Pulse Resp B/P (MAP) Pulse Ox O2 Delivery O2 Flow Rate FiO2 08/18/19 07:00 64 23 139/84 (102) 95 08/18/19 06:59 64 18 50 08/18/19 06:00 60 22 149/67 (94) 99 08/18/19 05:54 156/69 08/18/19 05:30 63 19 50 08/18/19 05:11 181/74 08/18/19 05:00 50 18 181/74 (109) 100 08/18/19 04:00 98.2 62 19 174/78 (110) 100 08/18/19 04:00 50 08/18/19 04:00 Mechanical Ventilator Mechanical Ventilator Mechanical Ventilator 08/18/19 04:00 60 08/18/19 03:19 71 18 50 08/18/19 03:00 61 21 170/75 (106) 100 08/18/19 02:00 63 19 172/71 (104) 100 08/18/19 01:04 74 18 50 08/18/19 01:00 61 18 160/73 (102) 100 08/18/19 00:00 50 08/18/19 00:00 98.8 62 21 151/71 (97) 100 08/18/19 00:00 147/74 08/18/19 00:00 Mechanical Ventilator Mechanical Ventilator Mechanical Ventilator 08/17/19 23:05 67 18 50 08/17/19 23:00 65 23 153/74 (100) 100 08/17/19 22:00 66 19 149/72 (97) 100 08/17/19 21:03 66 18 50 08/17/19 21:00 80 30 156/79 (104) 100 08/17/19 20:00 77 08/17/19 20:00 50 08/17/19 20:00 99.0 80 29 164/142 (149) 100 08/17/19 20:00 Mechanical Ventilator Mechanical Ventilator Mechanical Ventilator 08/17/19 19:30 84 18 50 08/17/19 19:00 77 31 151/133 (139) 99 08/17/19 18:00 74 26 158/65 (96) 97 08/17/19 17:33 134/87 08/17/19 17:00 72 23 156/78 (104) 99 08/17/19 16:58 73 18 50 08/17/19 16:00 50 08/17/19 16:00 98.8 64 18 148/80 (102) 97 08/17/19 16:00 Mechanical Ventilator Mechanical Ventilator Mechanical Ventilator 08/17/19 15:55 64 08/17/19 15:00 67 17 169/72 (104) 100 08/17/19 14:56 64 18 50 08/17/19 14:00 67 24 167/76 (106) 97 08/17/19 13:00 67 19 161/73 (102) 100 08/17/19 12:59 69 18 70 08/17/19 12:42 163/83 08/17/19 12:08 175/78 08/17/19 12:00 97.3 56 18 181/76 (111) 99 08/17/19 12:00 70 08/17/19 12:00 Mechanical Ventilator Mechanical Ventilator Mechanical Ventilator 08/17/19 11:45 57 08/17/19 11:16 59 18 70 08/17/19 11:00 59 29 173/78 (109) 99 08/17/19 10:08 64 18 70 08/17/19 10:00 86 23 173/88 (116) 98 08/17/19 09:04 61 18 100 08/17/19 09:02 63 18 100 08/17/19 09:00 70 25 144/73 (96) 100 08/17/19 08:20 64 18 100 08/17/19 08:02 61 21 168/71 (103) 100 08/17/19 08:00 100 08/17/19 08:00 Mechanical Ventilator Mechanical Ventilator Mechanical Ventilator Intake and Output 08/17/19 08/18/19 19:00 07:00 Intake Total 385 ml 275 ml Output Total 0 ml 22 ml Balance 385 ml 253 ml IV Total 385 ml 275 ml Output Urine Total 0 ml 0 ml Other 22 ml # Voids 1 # Bowel Movements 1 Laboratory Tests 08/17/19 08:46: Arterial Blood pH 7.486H, Arterial Blood Partial Pressure CO2 35.3, Arterial Blood Partial Pressure O2 121.4H, Arterial Blood HCO3 26.1H, Arterial Blood Oxygen Saturation 97.4, Arterial Blood Base Excess 2.7H, Cuauhtemoc Test Positive Height (Feet): 5 Height (Inches): 0.33 Weight (Pounds): 99 Objective General Appearance: WD/WN, awake/moaning. orally intubated Neck: supple Cardiovascular: normal rate Respiratory/Chest: rhonchi - bilaterally Abdomen: normal bowel sounds, non tender, soft, no organomegaly Edema: no edema noted Arm (L), no edema noted Arm (R), no edema noted Leg (L), no edema noted Leg (R), no edema noted Pedal (L), no edema noted Pedal (R), no edema noted Generalized Neurologic: disoriented, aphasia Nate Beltran MD Aug 18, 2019 07:46
[2019-08-18 08:41] LABS: ANION GAP 11 mmol/L (5-15); BLOOD UREA NITROGEN 42 mg/dL (7-18); CALCIUM 8.7 MG/DL (8.5-10.1); CARBON DIOXIDE 25 MMOL/L (21-32); CHLORIDE 110 MMOL/L (98-107); CREATININE 4.9 MG/DL (0.55-1.30); SODIUM 146 MMOL/L (136-145)
[2019-08-18 08:45] LABS: ALANINE AMINOTRANSFERASE < 6 U/L (12-78); ALBUMIN 1.3 G/DL (3.4-5.0); ALBUMIN/GLOBULIN RATIO 0.3 (1.0-2.7); ALKALINE PHOSPHATASE 110 U/L (46-116); ASPARTATE AMINO TRANSFERASE 20 U/L (15-37); BILIRUBIN,TOTAL 0.6 MG/DL (0.2-1.0)
[2019-08-18 08:49] LABS: BASOPHILS % (AUTO) 1.5 % (0.0-2.0); EOSINOPHILS % (AUTO) 0.1 % (0.0-3.0); HEMOGLOBIN 10.7 G/DL (12.0-16.0); LYMPHOCYTES % (AUTO) 49.6 % (20.0-45.0); MEAN CORPUSCULAR VOLUME 90 FL (80-99); MONOCYTES % (AUTO) 8.2 % (1.0-10.0); NEUTROPHILS % (AUTO) 40.7 % (45.0-75.0); PLATELET COUNT 315 K/UL (150-450); RED BLOOD COUNT 3.55 M/UL (4.20-5.40); RED CELL DISTRIBUTION WIDTH 18.3 % (11.6-14.8); WHITE BLOOD COUNT 7.3 K/UL (4.8-10.8)
[2019-08-18] MEDS ORDERED: Enoxaparin 30mg Inj SUBQ SCH (09:00)
[2019-08-18] MEDS: Meropenem 500 MG in NS 55 ML IVPB SCH ×2 (09:04→20:38)
[2019-08-18] MEDS: Pantoprazole Inj IVP SCH ×2 (09:04→20:39)
--- NOTE | 2019-08-18 09:28 | Surgery Progress Note ---
Surgery Progress Note Subjective Procedure Performed Right Femoral Temporary Hemodialysis catheter Insertion Symptoms: worse Additional Comments intubated on vent support labs noted exam unchanged decline Objective Last 24 Hour Vital Signs Date Time Temp Pulse Resp B/P (MAP) Pulse Ox O2 Delivery O2 Flow Rate FiO2 08/18/19 09:15 57 18 50 08/18/19 08:00 97.7 57 23 154/72 (99) 100 08/18/19 08:00 50 08/18/19 08:00 Mechanical Ventilator Mechanical Ventilator Mechanical Ventilator 08/18/19 07:00 64 23 139/84 (102) 95 08/18/19 06:59 64 18 50 08/18/19 06:00 60 22 149/67 (94) 99 08/18/19 05:54 156/69 08/18/19 05:30 63 19 50 08/18/19 05:11 181/74 08/18/19 05:00 50 18 181/74 (109) 100 08/18/19 04:00 98.2 62 19 174/78 (110) 100 08/18/19 04:00 50 08/18/19 04:00 Mechanical Ventilator Mechanical Ventilator Mechanical Ventilator 08/18/19 04:00 60 08/18/19 03:19 71 18 50 08/18/19 03:00 61 21 170/75 (106) 100 08/18/19 02:00 63 19 172/71 (104) 100 08/18/19 01:04 74 18 50 08/18/19 01:00 61 18 160/73 (102) 100 08/18/19 00:00 50 08/18/19 00:00 98.8 62 21 151/71 (97) 100 08/18/19 00:00 147/74 08/18/19 00:00 Mechanical Ventilator Mechanical Ventilator Mechanical Ventilator 08/17/19 23:05 67 18 50 08/17/19 23:00 65 23 153/74 (100) 100 08/17/19 22:00 66 19 149/72 (97) 100 08/17/19 21:03 66 18 50 08/17/19 21:00 80 30 156/79 (104) 100 08/17/19 20:00 77 08/17/19 20:00 50 08/17/19 20:00 99.0 80 29 164/142 (149) 100 08/17/19 20:00 Mechanical Ventilator Mechanical Ventilator Mechanical Ventilator 08/17/19 19:30 84 18 50 08/17/19 19:00 77 31 151/133 (139) 99 08/17/19 18:00 74 26 158/65 (96) 97 08/17/19 17:33 134/87 08/17/19 17:00 72 23 156/78 (104) 99 08/17/19 16:58 73 18 50 08/17/19 16:00 50 08/17/19 16:00 98.8 64 18 148/80 (102) 97 08/17/19 16:00 Mechanical Ventilator Mechanical Ventilator Mechanical Ventilator 08/17/19 15:55 64 08/17/19 15:00 67 17 169/72 (104) 100 08/17/19 14:56 64 18 50 08/17/19 14:00 67 24 167/76 (106) 97 08/17/19 13:00 67 19 161/73 (102) 100 08/17/19 12:59 69 18 70 08/17/19 12:42 163/83 08/17/19 12:08 175/78 08/17/19 12:00 97.3 56 18 181/76 (111) 99 08/17/19 12:00 70 08/17/19 12:00 Mechanical Ventilator Mechanical Ventilator Mechanical Ventilator 08/17/19 11:45 57 08/17/19 11:16 59 18 70 08/17/19 11:00 59 29 173/78 (109) 99 08/17/19 10:08 64 18 70 08/17/19 10:00 86 23 173/88 (116) 98 I&O Intake and Output 08/17/19 08/18/19 19:00 07:00 Intake Total 385 ml 275 ml Output Total 0 ml 22 ml Balance 385 ml 253 ml IV Total 385 ml 275 ml Output Urine Total 0 ml 0 ml Other 22 ml # Voids 1 # Bowel Movements 1 Dressing: other Wound: other Drains: other Cardiovascular: RSR Respiratory: decreased breath sounds Abdomen: soft, present bowel sounds Extremities: no cyanosis Laboratory Tests Test 08/18/19 07:35 White Blood Count 7.3 K/UL (4.8-10.8) Red Blood Count 3.55 M/UL (4.20-5.40) L Hemoglobin 10.7 G/DL (12.0-16.0) L Hematocrit 32.0 % (37.0-47.0) L Mean Corpuscular Volume 90 FL (80-99) Mean Corpuscular Hemoglobin 30.2 PG (27.0-31.0) Mean Corpuscular Hemoglobin Concent 33.5 G/DL (32.0-36.0) Red Cell Distribution Width 18.3 % (11.6-14.8) H Platelet Count 315 K/UL (150-450) Mean Platelet Volume 6.4 FL (6.5-10.1) L Neutrophils (%) (Auto) 40.7 % (45.0-75.0) L Lymphocytes (%) (Auto) 49.6 % (20.0-45.0) H Monocytes (%) (Auto) 8.2 % (1.0-10.0) Eosinophils (%) (Auto) 0.1 % (0.0-3.0) Basophils (%) (Auto) 1.5 % (0.0-2.0) Sodium Level 146 MMOL/L (136-145) H Potassium Level 3.0 MMOL/L (3.5-5.1) L Chloride Level 110 MMOL/L (98-107) H Carbon Dioxide Level 25 MMOL/L (21-32) Anion Gap 11 mmol/L (5-15) Blood Urea Nitrogen 42 mg/dL (7-18) H Creatinine 4.9 MG/DL (0.55-1.30) H Estimat Glomerular Filtration Rate 8.5 mL/min (>60) Glucose Level 99 MG/DL (74-106) Calcium Level 8.7 MG/DL (8.5-10.1) Total Bilirubin 0.6 MG/DL (0.2-1.0) Aspartate Amino Transf (AST/SGOT) 20 U/L (15-37) Alanine Aminotransferase (ALT/SGPT) < 6 U/L (12-78) L Alkaline Phosphatase 110 U/L (46-116) Total Protein 5.3 G/DL (6.4-8.2) L Albumin 1.3 G/DL (3.4-5.0) L Globulin 4.0 g/dL Albumin/Globulin Ratio 0.3 (1.0-2.7) L Thyroid Stimulating Hormone (TSH) 4.897 uiU/mL (0.358-3.740) Free Thyroxine 1.45 NG/DL (0.76-1.46) Assessment Post-op Diagnosis same Plan Problems: (1) Malnutrition Assessment & Plan: DAILY ESTIMATED NEEDS: Needs based on ESRD+ HD, underweight, wound/ 39.5kg 35-40 kcals/kg 6562-8451 total kcals 1.25-1.8 g protein/kg 49-71 g total protein 20-22 mL/kg 790-869 total fluid mLs NUTRITION DIAGNOSIS: * Increased kcal and protein needs r/t underweight status, HD needs, wuond healing as evidenced by pt is underweight per guidelines, ESRD, on HD, admitted non-blanching erythema wounds @ BL heels and sacrum * Swallowing difficulty R/T dysphagia as evidenced by ENGINEERING TECHNICAL ANALYST recommends temporary nonoral feeding at this time, s/p NGT insertion, on NGT feeding-> now s/p self removal, NPO. CURRENT TF:NPO PO DIET RECOMMENDATIONS: WHEN SAFE FOR ORAL DIET -> renal/ texture per ENGINEERING TECHNICAL ANALYST ENTERAL NUTRITION RECOMMENDATIONS: W/ GI access: Nepro @ 35ml/hr x 22 hrs to provide 770ml, 1386kcal, 62g prot, 560ml free water * W/ GI access, resume TF on Nepro * Initiate Nepro @ 15ml/hr x 6 hrs, advance 10ml q 4-6 hrs as tolerated to goal rate. * Hold 1 hour before and after Synthroid med * HOB over 30 degrees/ water flush per MD. ADDITIONAL RECOMMENDATIONS: 1) Calibrated bed scale wt for accurate CBW -> daily wt monitoring Per HD record: dry wt on 07/30=39.5kg (87lbs) 2) Wound care: (W/ GI access) add Nephorivte x 1 + Balta BID 3) Monitor NPO status: without GI access at this time, s/p pulling out NGT 4) Monitor for hypoglycemia while NPO 5) Monitor for continuity of HD (2) Septic arthritis Assessment & Plan: Pt presented on admission with generalized scaly rash . pt noted to be restless and scratching at skin. Bleeding from oral mucosa noted. Joint deformity noted to R shoulder. Surgical incision approximated with 11 sutures. Erythema but no exudate,or elevation in skin temp at site of incision. Historical incision R hip that is tunneled.Small amt seropurulent exudate noted. Periwound is erythematous,but no elevation in skin temp noted. No odor noted. Non-blanching erythema noted to sacrum. Perianal area is erythematous and excoriated. L heel is boggy with non-blanching erythema. R heel is soft with non-blanching erythema. No evidence of skin breakdown to all other bony prominences. Tx.plan: Cover R shoulder with Drsg and change daily and prn. Cleanse R hip wound with Saline. Apply Therahoney.Apply Cavilon Skin Barrier periwound. Cover with Optifoam drsg. Change every 3 days and prn. Apply Moisture Barrier Paste to perianal area and buttocks. Cover Sacrum with Optifoam drsg. Change every 3 days and prn. Apply Cavilon Skin Barrier to both heels. Cover each heel with Optifoam drsg. Change every 7 days and prn. APM/ELVIA Mattress overlay. Reposition at least every 2hours or as tolerated. Off-load heels with pillow. HD cath necessary HD as renal likely will need intubation (3) Wound, open, hip or thigh with complication Assessment & Plan: slow healing will need nutritional optimization difficult ng tube peg when stable sutures removed from right shoulder comfortable (4) Abscess of right hip (5) possible septic arthritis Camilo James Aug 18, 2019 09:27
--- NOTE | 2019-08-18 10:17 | Critical Care Progress Note ---
Assessment/Plan Assessment/Plan respiratory failure hemoptysis hypoxemia chronic renal failure toxic met encephalopathy severe protein calorie malnutrition cachexia left lung whiteout s/p intubation PLAN care noted vent support has a 7 ETT would need to d/w family gi noted antibiotics monitor imaging and repeat today monitor for bleeding elevated head watch fluid status nutrition as able off load ROM ICU care and management critical at present requires ICU management feeds as able medications/laboratory data/nursing notes/ICU care reviewed in detail note reviewed and edited care discussed with RN and RT ICU time spent >38 minutes coordinating care Critical Care - Subjective Interval Events: intubated on vent care dw/ RN poor LOC still full code ROS Limited/Unobtainable: Yes Condition: critical EKG Rhythm: Sinus Rhythm Residuals: minimal Tube Feeding Tolerated: yes I&O: Intake and Output 08/17/19 08/18/19 19:00 07:00 Intake Total 385 ml 275 ml Output Total 0 ml 22 ml Balance 385 ml 253 ml IV Total 385 ml 275 ml Output Urine Total 0 ml 0 ml Other 22 ml # Voids 1 # Bowel Movements 1 Critical Care - Objective CXR: CXR still with consolidation left lung intubated ET-Tube: 7.0 ET Position: 19 Last 24 Hour Vital Signs Date Time Temp Pulse Resp B/P (MAP) Pulse Ox O2 Delivery O2 Flow Rate FiO2 08/18/19 09:15 57 18 50 08/18/19 09:00 60 19 148/92 (110) 100 08/18/19 08:00 97.7 57 23 154/72 (99) 100 08/18/19 08:00 50 08/18/19 08:00 Mechanical Ventilator Mechanical Ventilator Mechanical Ventilator 08/18/19 07:00 64 23 139/84 (102) 95 08/18/19 06:59 64 18 50 08/18/19 06:00 60 22 149/67 (94) 99 08/18/19 05:54 156/69 08/18/19 05:30 63 19 50 08/18/19 05:11 181/74 08/18/19 05:00 50 18 181/74 (109) 100 08/18/19 04:00 98.2 62 19 174/78 (110) 100 08/18/19 04:00 50 08/18/19 04:00 Mechanical Ventilator Mechanical Ventilator Mechanical Ventilator 08/18/19 04:00 60 3/5/20 03:19 71 18 50 08/18/19 03:00 61 21 170/75 (106) 100 08/18/19 02:00 63 19 172/71 (104) 100 08/18/19 01:04 74 18 50 08/18/19 01:00 61 18 160/73 (102) 100 08/18/19 00:00 50 08/18/19 00:00 98.8 62 21 151/71 (97) 100 08/18/19 00:00 147/74 08/18/19 00:00 Mechanical Ventilator Mechanical Ventilator Mechanical Ventilator 08/17/19 23:05 67 18 50 08/17/19 23:00 65 23 153/74 (100) 100 08/17/19 22:00 66 19 149/72 (97) 100 08/17/19 21:03 66 18 50 08/17/19 21:00 80 30 156/79 (104) 100 08/17/19 20:00 77 08/17/19 20:00 50 08/17/19 20:00 99.0 80 29 164/142 (149) 100 08/17/19 20:00 Mechanical Ventilator Mechanical Ventilator Mechanical Ventilator 08/17/19 19:30 84 18 50 08/17/19 19:00 77 31 151/133 (139) 99 08/17/19 18:00 74 26 158/65 (96) 97 08/17/19 17:33 134/87 08/17/19 17:00 72 23 156/78 (104) 99 08/17/19 16:58 73 18 50 08/17/19 16:00 50 08/17/19 16:00 98.8 64 18 148/80 (102) 97 08/17/19 16:00 Mechanical Ventilator Mechanical Ventilator Mechanical Ventilator 08/17/19 15:55 64 08/17/19 15:00 67 17 169/72 (104) 100 08/17/19 14:56 64 18 50 08/17/19 14:00 67 24 167/76 (106) 97 08/17/19 13:00 67 19 161/73 (102) 100 08/17/19 12:59 69 18 70 08/17/19 12:42 163/83 08/17/19 12:08 175/78 08/17/19 12:00 97.3 56 18 181/76 (111) 99 08/17/19 12:00 70 08/17/19 12:00 Mechanical Ventilator Mechanical Ventilator Mechanical Ventilator 08/17/19 11:45 57 08/17/19 11:16 59 18 70 08/17/19 11:00 59 29 173/78 (109) 99 Labs: Labs Test 08/16/19 09:50 08/16/19 21:20 08/17/19 04:05 08/17/19 08:46 White Blood Count 5.1 K/UL (4.8-10.8) 5.7 K/UL (4.8-10.8) Red Blood Count 3.89 M/UL (4.20-5.40) 3.53 M/UL (4.20-5.40) Hemoglobin 11.6 G/DL (12.0-16.0) 10.6 G/DL (12.0-16.0) Hematocrit 34.5 % (37.0-47.0) 31.8 % (37.0-47.0) Mean Corpuscular Volume 89 FL (80-99) 90 FL (80-99) Mean Corpuscular Hemoglobin 29.8 PG (27.0-31.0) 30.1 PG (27.0-31.0) Mean Corpuscular Hemoglobin Concent 33.7 G/DL (32.0-36.0) 33.4 G/DL (32.0-36.0) Red Cell Distribution Width 16.7 % (11.6-14.8) 17.8 % (11.6-14.8) Platelet Count 307 K/UL (150-450) 292 K/UL (150-450) Mean Platelet Volume 6.4 FL (6.5-10.1) 6.6 FL (6.5-10.1) Neutrophils (%) (Auto) 56.4 % (45.0-75.0) 37.7 % (45.0-75.0) Lymphocytes (%) (Auto) 34.1 % (20.0-45.0) 51.2 % (20.0-45.0) Monocytes (%) (Auto) 7.9 % (1.0-10.0) 9.0 % (1.0-10.0) Eosinophils (%) (Auto) 0.6 % (0.0-3.0) 0.6 % (0.0-3.0) Basophils (%) (Auto) 1.0 % (0.0-2.0) 1.6 % (0.0-2.0) Sodium Level 147 MMOL/L (136-145) 145 MMOL/L (136-145) Potassium Level 3.4 MMOL/L (3.5-5.1) 3.5 MMOL/L (3.5-5.1) Chloride Level 109 MMOL/L (98-107) 109 MMOL/L (98-107) Carbon Dioxide Level 27 MMOL/L (21-32) 28 MMOL/L (21-32) Anion Gap 11 mmol/L (5-15) 9 mmol/L (5-15) Blood Urea Nitrogen 42 mg/dL (7-18) 39 mg/dL (7-18) Creatinine 5.0 MG/DL (0.55-1.30) 4.7 MG/DL (0.55-1.30) Estimat Glomerular Filtration Rate 8.4 mL/min (>60) 9.0 mL/min (>60) Glucose Level 141 MG/DL (74-106) 88 MG/DL (74-106) Calcium Level 9.0 MG/DL (8.5-10.1) 8.9 MG/DL (8.5-10.1) Phosphorus Level 5.1 MG/DL (2.5-4.9) Magnesium Level 2.0 MG/DL (1.8-2.4) Total Bilirubin 0.5 MG/DL (0.2-1.0) 0.5 MG/DL (0.2-1.0) Aspartate Amino Transf (AST/SGOT) 20 U/L (15-37) 19 U/L (15-37) Alanine Aminotransferase (ALT/SGPT) 8 U/L (12-78) < 6 U/L (12-78) Alkaline Phosphatase 120 U/L (46-116) 113 U/L (46-116) C-Reactive Protein, Quantitative 3.9 mg/dL (0.00-0.90) Pro-B-Type Natriuretic Peptide > 12670 pg/mL (0-125) Total Protein 5.5 G/DL (6.4-8.2) 5.4 G/DL (6.4-8.2) Albumin 1.3 G/DL (3.4-5.0) 1.3 G/DL (3.4-5.0) Globulin 4.2 g/dL 4.1 g/dL Albumin/Globulin Ratio 0.3 (1.0-2.7) 0.3 (1.0-2.7) Prothrombin Time 12.4 SEC (9.30-11.50) 12.5 SEC (9.30-11.50) Prothromb Time International Ratio 1.2 (0.9-1.1) 1.2 (0.9-1.1) Arterial Blood pH 7.486 (7.350-7.450) Arterial Blood Partial Pressure CO2 35.3 mmHg (35.0-45.0) Arterial Blood Partial Pressure O2 121.4 mmHg (75.0-100.0) Arterial Blood HCO3 26.1 mmol/L (22.0-26.0) Arterial Blood Oxygen Saturation 97.4 % (95-100) Arterial Blood Base Excess 2.7 (-2-2) Cuauhtemoc Test Positive Test 08/18/19 07:35 White Blood Count 7.3 K/UL (4.8-10.8) Red Blood Count 3.55 M/UL (4.20-5.40) Hemoglobin 10.7 G/DL (12.0-16.0) Hematocrit 32.0 % (37.0-47.0) Mean Corpuscular Volume 90 FL (80-99) Mean Corpuscular Hemoglobin 30.2 PG (27.0-31.0) Mean Corpuscular Hemoglobin Concent 33.5 G/DL (32.0-36.0) Red Cell Distribution Width 18.3 % (11.6-14.8) Platelet Count 315 K/UL (150-450) Mean Platelet Volume 6.4 FL (6.5-10.1) Neutrophils (%) (Auto) 40.7 % (45.0-75.0) Lymphocytes (%) (Auto) 49.6 % (20.0-45.0) Monocytes (%) (Auto) 8.2 % (1.0-10.0) Eosinophils (%) (Auto) 0.1 % (0.0-3.0) Basophils (%) (Auto) 1.5 % (0.0-2.0) Sodium Level 146 MMOL/L (136-145) Potassium Level 3.0 MMOL/L (3.5-5.1) Chloride Level 110 MMOL/L (98-107) Carbon Dioxide Level 25 MMOL/L (21-32) Anion Gap 11 mmol/L (5-15) Blood Urea Nitrogen 42 mg/dL (7-18) Creatinine 4.9 MG/DL (0.55-1.30) Estimat Glomerular Filtration Rate 8.5 mL/min (>60) Glucose Level 99 MG/DL (74-106) Calcium Level 8.7 MG/DL (8.5-10.1) Total Bilirubin 0.6 MG/DL (0.2-1.0) Aspartate Amino Transf (AST/SGOT) 20 U/L (15-37) Alanine Aminotransferase (ALT/SGPT) < 6 U/L (12-78) Alkaline Phosphatase 110 U/L (46-116) Total Protein 5.3 G/DL (6.4-8.2) Albumin 1.3 G/DL (3.4-5.0) Globulin 4.0 g/dL Albumin/Globulin Ratio 0.3 (1.0-2.7) Thyroid Stimulating Hormone (TSH) 4.897 uiU/mL (0.358-3.740) Free Thyroxine 1.45 NG/DL (0.76-1.46) Objective: WDWN NAD intubated reduced breath sounds without rhonchi or wheeze [id number] without MRG NABS nontender no HSM no CCE contractures poorly responsive nonfocal cachectic reviewed and edited Accucheck: 94 Malcolm Cruz MD Aug 18, 2019 10:17
[2019-08-18] MEDS: D5NS 1,000 ML IV SCH (10:30)
--- NOTE | 2019-08-18 10:48 | General Progress Note ---
Assessment/Plan Status: stable, not improved, unchanged, deteriorating Assessment/Plan: Assessment - Severe ulcerative esophagitis on endoscopy - on BID PPI - Resp failure --> now intubated - thrombocytopenia --> resolved - Renal failure --> now on HD, stablized - aspiration risk --> s/p PEG - anemia - bradycardia - Poor prognosis Recommendations - NPO - Begin TF - OK to restart anticoagulation from GI standpoint - monitor H&H - f/u esophageal biopsies Subjective Allergies: Coded Allergies: VANCOMYCIN (Unverified Allergy, Unknown, 08/02/19) Subjective Above noted d/w RN One dark stool today H&H stable on vent Objective Last 24 Hour Vital Signs Date Time Temp Pulse Resp B/P (MAP) Pulse Ox O2 Delivery O2 Flow Rate FiO2 08/18/19 09:15 57 18 50 08/18/19 09:00 60 19 148/92 (110) 100 08/18/19 08:00 97.7 57 23 154/72 (99) 100 08/18/19 08:00 50 08/18/19 08:00 Mechanical Ventilator Mechanical Ventilator Mechanical Ventilator 08/18/19 07:00 64 23 139/84 (102) 95 08/18/19 06:59 64 18 50 08/18/19 06:00 60 22 149/67 (94) 99 08/18/19 05:54 156/69 08/18/19 05:30 63 19 50 08/18/19 05:11 181/74 08/18/19 05:00 50 18 181/74 (109) 100 08/18/19 04:00 98.2 62 19 174/78 (110) 100 08/18/19 04:00 50 08/18/19 04:00 Mechanical Ventilator Mechanical Ventilator Mechanical Ventilator 08/18/19 04:00 60 08/18/19 03:19 71 18 50 08/18/19 03:00 61 21 170/75 (106) 100 08/18/19 02:00 63 19 172/71 (104) 100 08/18/19 01:04 74 18 50 08/18/19 01:00 61 18 160/73 (102) 100 08/18/19 00:00 50 08/18/19 00:00 98.8 62 21 151/71 (97) 100 08/18/19 00:00 147/74 08/18/19 00:00 Mechanical Ventilator Mechanical Ventilator Mechanical Ventilator 08/17/19 23:05 67 18 50 08/17/19 23:00 65 23 153/74 (100) 100 08/17/19 22:00 66 19 149/72 (97) 100 08/17/19 21:03 66 18 50 08/17/19 21:00 80 30 156/79 (104) 100 08/17/19 20:00 77 08/17/19 20:00 50 08/17/19 20:00 99.0 80 29 164/142 (149) 100 08/17/19 20:00 Mechanical Ventilator Mechanical Ventilator Mechanical Ventilator 08/17/19 19:30 84 18 50 08/17/19 19:00 77 31 151/133 (139) 99 08/17/19 18:00 74 26 158/65 (96) 97 08/17/19 17:33 134/87 08/17/19 17:00 72 23 156/78 (104) 99 08/17/19 16:58 73 18 50 08/17/19 16:00 50 08/17/19 16:00 98.8 64 18 148/80 (102) 97 08/17/19 16:00 Mechanical Ventilator Mechanical Ventilator Mechanical Ventilator 08/17/19 15:55 64 08/17/19 15:00 67 17 169/72 (104) 100 08/17/19 14:56 64 18 50 08/17/19 14:00 67 24 167/76 (106) 97 08/17/19 13:00 67 19 161/73 (102) 100 08/17/19 12:59 69 18 70 08/17/19 12:42 163/83 08/17/19 12:08 175/78 08/17/19 12:00 97.3 56 18 181/76 (111) 99 08/17/19 12:00 70 08/17/19 12:00 Mechanical Ventilator Mechanical Ventilator Mechanical Ventilator 08/17/19 11:45 57 08/17/19 11:16 59 18 70 08/17/19 11:00 59 29 173/78 (109) 99 Intake and Output 08/17/19 08/18/19 19:00 07:00 Intake Total 385 ml 275 ml Output Total 0 ml 22 ml Balance 385 ml 253 ml IV Total 385 ml 275 ml Output Urine Total 0 ml 0 ml Other 22 ml # Voids 1 # Bowel Movements 1 Laboratory Tests 08/18/19 07:35: White Blood Count 7.3, Red Blood Count 3.55L, Hemoglobin 10.7L, Hematocrit 32.0L , Mean Corpuscular Volume 90, Mean Corpuscular Hemoglobin 30.2, Mean Corpuscular Hemoglobin Concent 33.5, Red Cell Distribution Width 18.3H, Platelet Count 315, Mean Platelet Volume 6.4L, Neutrophils (%) (Auto) 40.7L, Lymphocytes (%) (Auto) 49.6H, Monocytes (%) (Auto) 8.2, Eosinophils (%) (Auto) 0.1, Basophils (%) (Auto) 1.5, Sodium Level 146H, Potassium Level 3.0L, Chloride Level 110H, Carbon Dioxide Level 25, Anion Gap 11, Blood Urea Nitrogen 42H, Creatinine 4.9H, Estimat Glomerular Filtration Rate 8.5, Glucose Level 99, Calcium Level 8.7, Total Bilirubin 0.6, Aspartate Amino Transf (AST/SGOT) 20, Alanine Aminotransferase (ALT/SGPT) < 6L, Alkaline Phosphatase 110, Total Protein 5.3L, Albumin 1.3L, Globulin 4.0, Albumin/Globulin Ratio 0.3L, Thyroid Stimulating Hormone (TSH) 4.897H, Free Thyroxine 1.45 Height (Feet): 5 Height (Inches): 0.33 Weight (Pounds): 98 Objective Debilitated frail woman NCAT (+) ETT supple scattered ronchi RR abd soft ND NT no edema Cristy Elizondo MD Aug 18, 2019 10:48
--- NOTE | 2019-08-18 11:00 | Infectious Diseases Prog Note ---
Assessment/Plan Assessment/Plan A; 1. Hailee sepsis 2. Klebsiella sepsis , treated 3. Right shoulder septic arthritis, status post surgery. 4. Diabetes. 5. Hypertension. 6. Anemia 7. Thrombocytopenia improving 9. Atelectasis , left lung collapse PLAN: 1. Continue Meropenem 2. Change Micafungin to Fluconazole 3. Sputum culture 4. Case was with Pharmacist Subjective ROS Limited/Unobtainable: Yes Respiratory: Reports: other - intubated yesterday Allergies: Coded Allergies: VANCOMYCIN (Unverified Allergy, Unknown, 08/02/19) Objective Vital Signs Last 24 Hour Vital Signs Date Time Temp Pulse Resp B/P (MAP) Pulse Ox O2 Delivery O2 Flow Rate FiO2 08/18/19 09:15 57 18 50 08/18/19 09:00 60 19 148/92 (110) 100 08/18/19 08:00 97.7 57 23 154/72 (99) 100 08/18/19 08:00 50 08/18/19 08:00 Mechanical Ventilator Mechanical Ventilator Mechanical Ventilator 08/18/19 07:00 64 23 139/84 (102) 95 08/18/19 06:59 64 18 50 08/18/19 06:00 60 22 149/67 (94) 99 08/18/19 05:54 156/69 08/18/19 05:30 63 19 50 08/18/19 05:11 181/74 08/18/19 05:00 50 18 181/74 (109) 100 08/18/19 04:00 98.2 62 19 174/78 (110) 100 08/18/19 04:00 50 08/18/19 04:00 Mechanical Ventilator Mechanical Ventilator Mechanical Ventilator 08/18/19 04:00 60 08/18/19 03:19 71 18 50 08/18/19 03:00 61 21 170/75 (106) 100 08/18/19 02:00 63 19 172/71 (104) 100 08/18/19 01:04 74 18 50 08/18/19 01:00 61 18 160/73 (102) 100 08/18/19 00:00 50 08/18/19 00:00 98.8 62 21 151/71 (97) 100 08/18/19 00:00 147/74 08/18/19 00:00 Mechanical Ventilator Mechanical Ventilator Mechanical Ventilator 3/4/20 23:05 67 18 50 08/17/19 23:00 65 23 153/74 (100) 100 08/17/19 22:00 66 19 149/72 (97) 100 08/17/19 21:03 66 18 50 08/17/19 21:00 80 30 156/79 (104) 100 08/17/19 20:00 77 08/17/19 20:00 50 08/17/19 20:00 99.0 80 29 164/142 (149) 100 08/17/19 20:00 Mechanical Ventilator Mechanical Ventilator Mechanical Ventilator 08/17/19 19:30 84 18 50 08/17/19 19:00 77 31 151/133 (139) 99 08/17/19 18:00 74 26 158/65 (96) 97 08/17/19 17:33 134/87 08/17/19 17:00 72 23 156/78 (104) 99 08/17/19 16:58 73 18 50 08/17/19 16:00 50 08/17/19 16:00 98.8 64 18 148/80 (102) 97 08/17/19 16:00 Mechanical Ventilator Mechanical Ventilator Mechanical Ventilator 08/17/19 15:55 64 08/17/19 15:00 67 17 169/72 (104) 100 08/17/19 14:56 64 18 50 08/17/19 14:00 67 24 167/76 (106) 97 08/17/19 13:00 67 19 161/73 (102) 100 08/17/19 12:59 69 18 70 08/17/19 12:42 163/83 08/17/19 12:08 175/78 08/17/19 12:00 97.3 56 18 181/76 (111) 99 08/17/19 12:00 70 08/17/19 12:00 Mechanical Ventilator Mechanical Ventilator Mechanical Ventilator 08/17/19 11:45 57 08/17/19 11:16 59 18 70 08/17/19 11:00 59 29 173/78 (109) 99 Height (Feet): 5 Height (Inches): 0.33 Weight (Pounds): 98 General Appearance: cachetic HEENT: other - orally intubated Respiratory/Chest: decreased breath sounds, other - on ventilator Cardiovascular: bradycardia, other - R femoral Curt's catheter Extremities: other - hands edema Neurologic/Psychiatric: other Musculoskeletal: atrophy Laboratory Tests Test 08/18/19 07:35 White Blood Count 7.3 K/UL (4.8-10.8) Red Blood Count 3.55 M/UL (4.20-5.40) L Hemoglobin 10.7 G/DL (12.0-16.0) L Hematocrit 32.0 % (37.0-47.0) L Mean Corpuscular Volume 90 FL (80-99) Mean Corpuscular Hemoglobin 30.2 PG (27.0-31.0) Mean Corpuscular Hemoglobin Concent 33.5 G/DL (32.0-36.0) Red Cell Distribution Width 18.3 % (11.6-14.8) H Platelet Count 315 K/UL (150-450) Mean Platelet Volume 6.4 FL (6.5-10.1) L Neutrophils (%) (Auto) 40.7 % (45.0-75.0) L Lymphocytes (%) (Auto) 49.6 % (20.0-45.0) H Monocytes (%) (Auto) 8.2 % (1.0-10.0) Eosinophils (%) (Auto) 0.1 % (0.0-3.0) Basophils (%) (Auto) 1.5 % (0.0-2.0) Sodium Level 146 MMOL/L (136-145) H Potassium Level 3.0 MMOL/L (3.5-5.1) L Chloride Level 110 MMOL/L (98-107) H Carbon Dioxide Level 25 MMOL/L (21-32) Anion Gap 11 mmol/L (5-15) Blood Urea Nitrogen 42 mg/dL (7-18) H Creatinine 4.9 MG/DL (0.55-1.30) H Estimat Glomerular Filtration Rate 8.5 mL/min (>60) Glucose Level 99 MG/DL (74-106) Calcium Level 8.7 MG/DL (8.5-10.1) Total Bilirubin 0.6 MG/DL (0.2-1.0) Aspartate Amino Transf (AST/SGOT) 20 U/L (15-37) Alanine Aminotransferase (ALT/SGPT) < 6 U/L (12-78) L Alkaline Phosphatase 110 U/L (46-116) Total Protein 5.3 G/DL (6.4-8.2) L Albumin 1.3 G/DL (3.4-5.0) L Globulin 4.0 g/dL Albumin/Globulin Ratio 0.3 (1.0-2.7) L Thyroid Stimulating Hormone (TSH) 4.897 uiU/mL (0.358-3.740) Free Thyroxine 1.45 NG/DL (0.76-1.46) Current Medications Medications (Trade) Dose Ordered Sig/Javier Route PRN Reason Start Time Stop Time Status Last Admin Dose Admin Atropine Sulfate (Atropine) 1 mg Q4H PRN IVP Per rx protocol 08/13/19 08:30 09/12/19 08:29 Chlorhexidine Gluconate (Nae-Hex 2%) 1 applic DAILY@2000 TOPIC 08/15/19 20:00 09/14/19 19:59 08/17/19 20:00 Dextrose (Dextrose 50%) 50 ml Q30M PRN IV Hypoglycemia 08/11/19 10:30 09/04/19 17:44 08/17/19 18:21 Dextrose/Sodium Chloride 1,000 ml @ 20 mls/hr Q24H IV 08/15/19 10:30 09/12/19 10:29 08/16/19 12:26 Diphenhydramine HCl (Benadryl) 50 mg Q4H PRN IVP Itching 08/09/19 14:30 09/08/19 14:29 08/13/19 02:39 Epoetin Thomas (Epoetin Thomas(ESRD on dialysis)) 4,000 unit THU-THU-THU SUBQ 08/12/19 21:00 09/11/19 20:59 08/17/19 21:01 Heparin Sodium/ Sodium Chloride (Heparin 1000 units/500ml Premix) 1,000 unit ONCE PRN IV picc line placement 08/16/19 13:00 08/18/19 12:59 Hydralazine HCl (Apresoline) 25 mg Q6H PRN IV For High Blood Pressure 08/14/19 01:45 09/13/19 01:44 08/18/19 05:11 Levothyroxine Sodium (Synthroid) 75 mcg DAILY IV 08/13/19 09:00 09/12/19 08:59 08/18/19 09:31 Lidocaine HCl (Xylocaine 1% 30ml) 30 ml ONCE PRN INJ picc placement 08/16/19 13:00 08/18/19 12:59 Lorazepam (Ativan 2mg/ml 1ml) 1 mg Q3H PRN IV For Anxiety 08/17/19 11:30 08/24/19 11:29 Meropenem 500 mg/ Sodium Chloride 55 ml @ 110 mls/hr EVERY 12 HOURS IVPB 08/13/19 21:00 08/18/19 20:59 08/18/19 09:04 Metoclopramide HCl (Reglan) 5 mg Q8H PRN IVP Nausea & Vomiting 08/09/19 12:39 09/08/19 12:38 Micafungin Sodium 100 mg/Sodium Chloride 110 ml @ 110 mls/hr Q24H IVPB 08/16/19 14:00 08/23/19 13:59 08/17/19 13:42 Nitroglycerin (Nitro-Bid) 1 inch Q6HR TOPIC 08/09/19 12:39 09/08/19 12:38 08/18/19 05:54 Pantoprazole (Protonix) 40 mg EVERY 12 HOURS IVP 08/09/19 21:00 09/08/19 10:44 08/18/19 09:04 Potassium Chloride 100 ml @ 100 mls/hr Q1HR IVPB 08/18/19 10:00 08/18/19 11:59 08/18/19 10:42 Warren Parks MD Aug 18, 2019 11:00
--- NOTE | 2019-08-18 13:05 | Nephrology Progress Note ---
Assessment/Plan Problem List: (1) ESRD (end stage renal disease) on dialysis (2) Malnutrition (3) Anemia in CKD (chronic kidney disease) (4) Hypotension (5) Thrombocytopenia (6) Sepsis Assessment: klebsiella in blood Assessment -Early sepsis with shock. -Healthcare-associated pneumonia. -Severe protein-calorie malnutrition. -Thrombocytopenia. - End-stage renal disease. - History of hypertension. - Bradycardia. - HypoThyroid Plan Patient underwent PEG placement August 16 Today the patient is intubated on ventilator Due for dialysis today August Discussed with RN Permacath was removed on August 12 Dialysis 08/11 Transfusion as needed Patient had hematemesis meds IV as possible Surveillance blood cultures tomorrow Plan to put the permacath back in on Thursday if cultures are negative keep BP and BS in check Inflammatory markers per orders Subjective ROS Limited/Unobtainable: Yes Objective Objective Last 24 Hour Vital Signs Date Time Temp Pulse Resp B/P (MAP) Pulse Ox O2 Delivery O2 Flow Rate FiO2 08/18/19 12:00 Mechanical Ventilator Mechanical Ventilator Mechanical Ventilator 08/18/19 12:00 97.7 73 19 127/110 (116) 100 08/18/19 12:00 50 08/18/19 11:45 160/94 08/18/19 11:37 72 08/18/19 11:05 54 18 50 08/18/19 11:00 61 24 160/94 (116) 100 08/18/19 10:00 54 18 159/86 (110) 100 08/18/19 09:15 57 18 50 08/18/19 09:00 60 19 148/92 (110) 100 08/18/19 08:15 58 08/18/19 08:00 97.7 57 23 154/72 (99) 100 08/18/19 08:00 50 08/18/19 08:00 Mechanical Ventilator Mechanical Ventilator Mechanical Ventilator 08/18/19 07:00 64 23 139/84 (102) 95 08/18/19 06:59 64 18 50 08/18/19 06:00 60 22 149/67 (94) 99 08/18/19 05:54 156/69 08/18/19 05:30 63 19 50 08/18/19 05:11 181/74 08/18/19 05:00 50 18 181/74 (109) 100 08/18/19 04:00 98.2 62 19 174/78 (110) 100 08/18/19 04:00 50 08/18/19 04:00 Mechanical Ventilator Mechanical Ventilator Mechanical Ventilator 08/18/19 04:00 60 08/18/19 03:19 71 18 50 08/18/19 03:00 61 21 170/75 (106) 100 08/18/19 02:00 63 19 172/71 (104) 100 08/18/19 01:04 74 18 50 08/18/19 01:00 61 18 160/73 (102) 100 08/18/19 00:00 50 08/18/19 00:00 98.8 62 21 151/71 (97) 100 08/18/19 00:00 147/74 08/18/19 00:00 Mechanical Ventilator Mechanical Ventilator Mechanical Ventilator 08/17/19 23:05 67 18 50 08/17/19 23:00 65 23 153/74 (100) 100 08/17/19 22:00 66 19 149/72 (97) 100 08/17/19 21:03 66 18 50 08/17/19 21:00 80 30 156/79 (104) 100 08/17/19 20:00 77 08/17/19 20:00 50 08/17/19 20:00 99.0 80 29 164/142 (149) 100 08/17/19 20:00 Mechanical Ventilator Mechanical Ventilator Mechanical Ventilator 08/17/19 19:30 84 18 50 08/17/19 19:00 77 31 151/133 (139) 99 08/17/19 18:00 74 26 158/65 (96) 97 08/17/19 17:33 134/87 08/17/19 17:00 72 23 156/78 (104) 99 08/17/19 16:58 73 18 50 08/17/19 16:00 50 08/17/19 16:00 98.8 64 18 148/80 (102) 97 08/17/19 16:00 Mechanical Ventilator Mechanical Ventilator Mechanical Ventilator 08/17/19 15:55 64 08/17/19 15:00 67 17 169/72 (104) 100 08/17/19 14:56 64 18 50 08/17/19 14:00 67 24 167/76 (106) 97 Intake and Output 08/17/19 08/18/19 19:00 07:00 Intake Total 385 ml 295 ml Output Total 0 ml 22 ml Balance 385 ml 273 ml IV Total 385 ml 295 ml Output Urine Total 0 ml 0 ml Other 22 ml # Voids 1 # Bowel Movements 1 Laboratory Tests 08/18/19 07:35: White Blood Count 7.3, Red Blood Count 3.55L, Hemoglobin 10.7L, Hematocrit 32.0L , Mean Corpuscular Volume 90, Mean Corpuscular Hemoglobin 30.2, Mean Corpuscular Hemoglobin Concent 33.5, Red Cell Distribution Width 18.3H, Platelet Count 315, Mean Platelet Volume 6.4L, Neutrophils (%) (Auto) 40.7L, Lymphocytes (%) (Auto) 49.6H, Monocytes (%) (Auto) 8.2, Eosinophils (%) (Auto) 0.1, Basophils (%) (Auto) 1.5, Sodium Level 146H, Potassium Level 3.0L, Chloride Level 110H, Carbon Dioxide Level 25, Anion Gap 11, Blood Urea Nitrogen 42H, Creatinine 4.9H, Estimat Glomerular Filtration Rate 8.5, Glucose Level 99, Calcium Level 8.7, Total Bilirubin 0.6, Aspartate Amino Transf (AST/SGOT) 20, Alanine Aminotransferase (ALT/SGPT) < 6L, Alkaline Phosphatase 110, Total Protein 5.3L, Albumin 1.3L, Globulin 4.0, Albumin/Globulin Ratio 0.3L, Thyroid Stimulating Hormone (TSH) 4.897H, Free Thyroxine 1.45 Height (Feet): 5 Height (Inches): 0.33 Weight (Pounds): 98 General Appearance: no apparent distress EENT: other - Patient intubated now on ventilator Cardiovascular: normal rate Respiratory/Chest: decreased breath sounds Abdomen: soft, other - Being fed through G-tube Objective no change William Blackwood MD Aug 18, 2019 13:05
[2019-08-18] MEDS: Dyna-Hex 2% Top Sol 2oz TOPIC SCH (19:50)
[2019-08-19] VITALS (25 sets, daily range): BP systolic 140–172; BP diastolic 46–115
--- NOTE | 2019-08-19 03:30 | Progress Note ---
DATE: 08/18/2019 CARDIOLOGY PROGRESS NOTE SUBJECTIVE: Status post G-tube placement. Having black stools. Remains on ventilator support. Monitored rhythm sinus and sinus bradycardia. No pauses. First-degree AV block noted. OBJECTIVE: VITAL SIGNS: Blood pressure 139/84, pulse 64, and respirations 23. No fevers. HEENT: Thin secretions. LUNGS: Bilateral breath sounds. Few rhonchi. CARDIAC: Regular rhythm and rate. Normal S1, S2. ABDOMEN: Soft. G-tube intact. EXTREMITIES: No edema. LABORATORY DATA: White count 7.3 and hemoglobin 10.7. Sodium 146, potassium 3, bicarb 25, BUN 42, creatinine 4.9. Albumin 1.3. IMPRESSION: 1. Respiratory failure, status post percutaneous endoscopic gastrostomy. 2. Hypokalemia. 3. Hypernatremia. 4. End-stage renal disease. 5. Severe protein-calorie malnutrition. 6. Recovered sepsis with shock. 7. Possible gastrointestinal bleeding. 8. Hypothyroidism. PLAN: 1. Continue thyroid replacement. 2. Protein and nutrition by feeding tube. 3. Off anticoagulant and anti-platelet therapy. 4. Hemodialysis with ultrafiltration. 5. Weaning efforts. 6. Avoid high potassium level to adjust dialysis bath. 7. Continue cardiac monitoring. 8. No need for Atropine at bedside any longer. 9. Antimicrobials per Infectious Disease small business consultant. Abel Stubbs M.D. DR: ALICIA JOB#: [id number] CC:
[2019-08-19 05:30] LABS: BASOPHILS % (AUTO) 1.6 % (0.0-2.0); EOSINOPHILS % (AUTO) 0.7 % (0.0-3.0); HEMATOCRIT 31.1 % (37.0-47.0); HEMOGLOBIN 10.7 G/DL (12.0-16.0); LYMPHOCYTES % (AUTO) 49.7 % (20.0-45.0); MEAN CORPUSCULAR VOLUME 90 FL (80-99); MONOCYTES % (AUTO) 7.7 % (1.0-10.0); NEUTROPHILS % (AUTO) 40.3 % (45.0-75.0); PLATELET COUNT 319 K/UL (150-450); RED BLOOD COUNT 3.46 M/UL (4.20-5.40); RED CELL DISTRIBUTION WIDTH 18.2 % (11.6-14.8); WHITE BLOOD COUNT 6.3 K/UL (4.8-10.8)
[2019-08-19 05:50] LABS: ALANINE AMINOTRANSFERASE 9 U/L (12-78); ALBUMIN 1.1 G/DL (3.4-5.0); ALBUMIN/GLOBULIN RATIO 0.3 (1.0-2.7); ALKALINE PHOSPHATASE 149 U/L (46-116); ANION GAP 12 mmol/L (5-15); ASPARTATE AMINO TRANSFERASE 23 U/L (15-37); BILIRUBIN,TOTAL 0.5 MG/DL (0.2-1.0); BLOOD UREA NITROGEN 28 mg/dL (7-18); CALCIUM 8.5 MG/DL (8.5-10.1); CARBON DIOXIDE 25 MMOL/L (21-32); CHLORIDE 106 MMOL/L (98-107); CREATININE 3.6 MG/DL (0.55-1.30); POTASSIUM 3.2 MMOL/L (3.5-5.1); SODIUM 143 MMOL/L (136-145)
[2019-08-19 05:55] LABS: PHOSPHORUS 2.9 MG/DL (2.5-4.9)
[2019-08-19] MEDS: Nitroglycerin 2% oint pkt TOPIC SCH ×5 (06:00→23:43)
--- NOTE | 2019-08-19 06:28 | General Progress Note ---
Assessment/Plan Problem List: (1) Hypothyroid ICD Codes: E03.9 - Hypothyroidism, unspecified SNOMED: 60292534 (2) ESRD (end stage renal disease) on dialysis ICD Codes: N18.6 - End stage renal disease; Z99.2 - Dependence on renal dialysis SNOMED: 502329081 (3) Hypotension ICD Codes: I95.9 - Hypotension, unspecified SNOMED: 91562883 Qualifiers: Qualified Codes: I95.3 - Hypotension of hemodialysis (4) Pneumonia ICD Codes: J18.9 - Pneumonia, unspecified organism SNOMED: 691250990 Qualifiers: Qualified Codes: J18.9 - Pneumonia, unspecified organism (5) Diabetes mellitus ICD Codes: E11.9 - Type 2 diabetes mellitus without complications SNOMED: 82446527 Status: stable, not improved, unchanged, deteriorating Assessment/Plan: TSH improved and free T4 is higher continue Levothyroxine 75 IV daily repeat thyroid function next week - most likely we'll need to reduce dosage by then Subjective ROS Limited/Unobtainable: Yes Allergies: Coded Allergies: VANCOMYCIN (Unverified Allergy, Unknown, 08/02/19) Subjective events noted interval notes reviewed Item Value Date Time Bedside Blood Glucose 128 mg/dl H 08/19/19 0612 Bedside Blood Glucose 98 mg/dl 08/18/19 2345 Bedside Blood Glucose 98 mg/dl 08/18/19 1734 Bedside Blood Glucose 180 mg/dl H 08/18/19 1245 Bedside Blood Glucose 94 mg/dl 08/18/19 0600 Bedside Blood Glucose 93 mg/dl 08/18/19 0000 Objective Last 24 Hour Vital Signs Date Time Temp Pulse Resp B/P (MAP) Pulse Ox O2 Delivery O2 Flow Rate FiO2 08/19/19 06:00 152/73 08/19/19 06:00 68 28 152/73 (99) 100 08/19/19 05:02 61 18 50 08/19/19 05:00 97.6 63 31 152/73 (99) 99 08/19/19 04:30 67 20 156/76 (102) 100 08/19/19 04:00 63 29 171/88 (115) 99 08/19/19 04:00 50 08/19/19 04:00 63 29 171/88 (115) 99 08/19/19 04:00 Mechanical Ventilator Mechanical Ventilator Mechanical Ventilator 08/19/19 03:07 60 18 50 08/19/19 03:01 61 08/19/19 03:00 63 24 168/79 (108) 97 08/19/19 02:00 61 18 141/71 (94) 100 08/19/19 01:00 57 28 150/73 (98) 100 57 08/19/19 00:59 58 18 50 08/19/19 00:00 Mechanical Ventilator Mechanical Ventilator Mechanical Ventilator 08/19/19 00:00 97.6 57 20 144/69 (94) 100 08/19/19 00:00 144/69 08/19/19 00:00 50 08/18/19 23:06 55 08/18/19 23:00 62 18 170/72 (104) 100 08/18/19 22:57 65 18 50 08/18/19 22:00 79 23 134/80 (98) 100 08/18/19 21:04 65 18 50 08/18/19 21:00 57 30 134/79 (97) 100 08/18/19 20:02 58 08/18/19 20:00 50 08/18/19 20:00 Mechanical Ventilator Mechanical Ventilator Mechanical Ventilator 08/18/19 20:00 97.5 59 25 143/72 (95) 100 08/18/19 19:00 62 20 148/69 (95) 100 08/18/19 18:59 63 18 50 08/18/19 18:04 52 18 142/75 (97) 100 08/18/19 18:00 146/76 08/18/19 17:00 54 30 146/76 (99) 100 08/18/19 16:52 59 18 50 08/18/19 16:05 Mechanical Ventilator Mechanical Ventilator Mechanical Ventilator 08/18/19 16:00 Mechanical Ventilator Mechanical Ventilator Mechanical Ventilator 08/18/19 16:00 97.7 53 42 158/70 (99) 100 08/18/19 16:00 50 08/18/19 15:24 61 08/18/19 15:00 63 19 144/65 (91) 100 08/18/19 14:55 62 18 50 08/18/19 14:00 63 18 121/71 (88) 100 08/18/19 13:28 67 18 50 08/18/19 13:00 69 18 97/60 (72) 100 3/5/20 12:00 Mechanical Ventilator Mechanical Ventilator Mechanical Ventilator 08/18/19 12:00 97.7 73 19 127/110 (116) 100 08/18/19 12:00 50 08/18/19 11:45 160/94 08/18/19 11:37 72 08/18/19 11:05 54 18 50 08/18/19 11:00 61 24 160/94 (116) 100 08/18/19 10:00 54 18 159/86 (110) 100 08/18/19 09:15 57 18 50 08/18/19 09:00 60 19 148/92 (110) 100 08/18/19 08:15 58 08/18/19 08:00 97.7 57 23 154/72 (99) 100 08/18/19 08:00 50 08/18/19 08:00 Mechanical Ventilator Mechanical Ventilator Mechanical Ventilator 08/18/19 07:00 64 23 139/84 (102) 95 08/18/19 06:59 64 18 50 Intake and Output 08/18/19 08/19/19 19:00 07:00 Intake Total 1285 ml 670 ml Output Total 0 ml 1 ml Balance 1285 ml 669 ml Intake Free Water 100 ml 280 ml IV Total 455 ml 55 ml Tube Feeding 130 ml 335 ml Hemodialysis 600 ml Output Urine Total 0 ml 1 ml # Bowel Movements 3 2 Laboratory Tests 08/18/19 07:35: White Blood Count 7.3, Red Blood Count 3.55L, Hemoglobin 10.7L, Hematocrit 32.0L , Mean Corpuscular Volume 90, Mean Corpuscular Hemoglobin 30.2, Mean Corpuscular Hemoglobin Concent 33.5, Red Cell Distribution Width 18.3H, Platelet Count 315, Mean Platelet Volume 6.4L, Neutrophils (%) (Auto) 40.7L, Lymphocytes (%) (Auto) 49.6H, Monocytes (%) (Auto) 8.2, Eosinophils (%) (Auto) 0.1, Basophils (%) (Auto) 1.5, Sodium Level 146H, Potassium Level 3.0L, Chloride Level 110H, Carbon Dioxide Level 25, Anion Gap 11, Blood Urea Nitrogen 42H, Creatinine 4.9H, Estimat Glomerular Filtration Rate 8.5, Glucose Level 99, Calcium Level 8.7, Total Bilirubin 0.6, Aspartate Amino Transf (AST/SGOT) 20, Alanine Aminotransferase (ALT/SGPT) < 6L, Alkaline Phosphatase 110, Total Protein 5.3L, Albumin 1.3L, Globulin 4.0, Albumin/Globulin Ratio 0.3L, Thyroid Stimulating Hormone (TSH) 4.897H, Free Thyroxine 1.45 08/19/19 03:40: White Blood Count 6.3, Red Blood Count 3.46L, Hemoglobin 10.7L, Hematocrit 31.1L , Mean Corpuscular Volume 90, Mean Corpuscular Hemoglobin 31.0, Mean Corpuscular Hemoglobin Concent 34.4, Red Cell Distribution Width 18.2H, Platelet Count 319, Mean Platelet Volume 6.4L, Neutrophils (%) (Auto) 40.3L, Lymphocytes (%) (Auto) 49.7H, Monocytes (%) (Auto) 7.7, Eosinophils (%) (Auto) 0.7, Basophils (%) (Auto) 1.6, Sodium Level 143, Potassium Level 3.2L, Chloride Level 106, Carbon Dioxide Level 25, Anion Gap 12, Blood Urea Nitrogen 28H, Creatinine 3.6H, Estimat Glomerular Filtration Rate 12.2, Glucose Level 119H, Calcium Level 8.5, Total Bilirubin 0.5, Aspartate Amino Transf (AST/SGOT) 23, Alanine Aminotransferase (ALT/SGPT) 9L, Alkaline Phosphatase 149H, Total Protein 5.2L, Albumin 1.1L, Globulin 4.1, Albumin/Globulin Ratio 0.3L, Phosphorus Level 2.9, Magnesium Level 1.5L, C-Reactive Protein, Quantitative 2.6H, Pro-B-Type Natriuretic Peptide > 81142C Height (Feet): 5 Height (Inches): 0.33 Weight (Pounds): 98 General Appearance: no apparent distress Neck: normal alignment Cardiovascular: normal rate Respiratory/Chest: decreased breath sounds Abdomen: normal bowel sounds Objective Current Medications Medications (Trade) Dose Ordered Sig/Javier Route PRN Reason Start Time Stop Time Status Last Admin Dose Admin Atropine Sulfate (Atropine) 1 mg Q4H PRN IVP Per rx protocol 08/13/19 08:30 09/12/19 08:29 Chlorhexidine Gluconate (Nae-Hex 2%) 1 applic DAILY@2000 TOPIC 08/15/19 20:00 09/14/19 19:59 08/18/19 19:50 Dextrose (Dextrose 50%) 50 ml Q30M PRN IV Hypoglycemia 08/11/19 10:30 09/04/19 17:44 08/18/19 12:36 Diphenhydramine HCl (Benadryl) 50 mg Q4H PRN IVP Itching 08/09/19 14:30 09/08/19 14:29 08/13/19 02:39 Epoetin Thomas (Epoetin Thomas(ESRD on dialysis)) 4,000 unit SUBQ 08/12/19 21:00 09/11/19 20:59 08/17/19 21:01 Fluconazole/ Sodium Chloride 100 ml @ 100 mls/hr Q24H IV 08/18/19 13:00 08/25/19 12:59 08/18/19 13:01 Hydralazine HCl (Apresoline) 10 mg Q4H PRN IV For High Blood Pressure 08/18/19 12:44 09/17/19 12:43 Levothyroxine Sodium (Synthroid) 75 mcg DAILY IV 08/13/19 09:00 09/12/19 08:59 08/18/19 09:31 Lorazepam (Ativan 2mg/ml 1ml) 1 mg Q3H PRN IV For Anxiety 08/17/19 11:30 08/24/19 11:29 Meropenem 500 mg/ Sodium Chloride 55 ml @ 110 mls/hr EVERY 12 HOURS IVPB 08/18/19 21:00 08/23/19 20:59 08/18/19 20:38 Metoclopramide HCl (Reglan) 5 mg Q8H PRN IVP Nausea & Vomiting 08/09/19 12:39 09/08/19 12:38 Nitroglycerin (Nitro-Bid) 1 inch Q6HR TOPIC 08/09/19 12:39 09/08/19 12:38 08/18/19 05:54 Pantoprazole (Protonix) 40 mg EVERY 12 HOURS IVP 08/09/19 21:00 09/08/19 10:44 08/18/19 20:39 Antonio Jacome MD Aug 19, 2019 06:28
--- NOTE | 2019-08-19 07:00 | Consultation ---
DATE OF CONSULTATION: 08/18/2019 ENDOCRINOLOGY CONSULTATION CONSULTING PHYSICIAN: Antonio Jacome M.D. REFERRING PHYSICIAN: Nate Beltran M.D. REASON FOR CONSULTATION: Hypothyroidism. HISTORY OF PRESENT ILLNESS: The patient is a 79-year-old female, who has been admitted to the hospital back in August 02, 2019. The patient initially presented to the hospital from dialysis center for hypotension during dialysis and admitted to the hospital. Currently, she is in the ICU for close treatment. The patient was on tube feeding, evidence of hypothyroidism as TSH was elevated and levothyroxine was converted to IV form. Endocrinology was consulted. PAST MEDICAL HISTORY: 1. Diabetes. 2. Hypertension. 3. Renal failure on dialysis. 4. Dementia. 5. Septic arthritis. 6. Osteoarthritis. 7. Osteoporosis. 8. DJD. SOCIAL HISTORY: No smoking, alcohol, or drug use. PAST SURGICAL HISTORY: Dialysis access placement. FAMILY HISTORY: Noncontributory. REVIEW OF SYSTEMS: Unable to obtain. MEDICATIONS: Reviewed and reconciled. ALLERGIES TO MEDICATION: Vancomycin. PHYSICAL EXAMINATION: VITAL SIGNS: Blood pressure is 149/67, heart rate 68, respiratory rate 22, temperature of 98. HEAD AND NECK: NG tube in place. No JVD. HEART: Regular. LUNGS: Decreased breath sound. ABDOMEN: Positive bowel sounds. EXTREMITIES: Positive for edema. LABORATORY VALUES: Sodium 145, potassium 3.5, chloride 109, bicarb 28, BUN 39, creatinine 4.7. TSH 12, which is down from August 04. DIAGNOSES: 1. End-stage renal disease, on hemodialysis. 2. Respiratory insufficiency, on BiPAP. 3. Dysphagia, on tube feeding. 4. Hypothyroidism, inadequately replaced. DISCUSSION: The TSH is trending down and the T4 is normal, although the free T3 is low , I do recommend to keep the patient on the levothyroxine IV at 75 mcg, this a high enough dose for him. I will order another set of thyroid function test today, TSH and free T4 and I will decide on dose adjustment. I will follow the results and further advice. Thank you, Dr. Beltran, for the courtesy of this consultation. Antonio Jacome M.D. DR: CLARENCE JOB#: [id number] CC: ISAI
[2019-08-19] MEDS ORDERED: Albuterol/Ipratropium 3ml neb HHN PRN (07:45)
[2019-08-19] MEDS: Pantoprazole Inj IVP SCH (08:28)
--- NOTE | 2019-08-19 08:45 | Nephrology Progress Note ---
Assessment/Plan Problem List: (1) ESRD (end stage renal disease) on dialysis (2) Malnutrition (3) Anemia in CKD (chronic kidney disease) (4) Hypotension (5) Thrombocytopenia (6) Sepsis Assessment: klebsiella in blood Assessment -Early sepsis with shock. -Healthcare-associated pneumonia. -Severe protein-calorie malnutrition. -Thrombocytopenia. - End-stage renal disease. - History of hypertension. - Bradycardia. - HypoThyroid Plan Magnesium and potassium supplement intravenously today Patient underwent PEG placement August 16 patient is intubated on ventilator Was dialyzed August 17 next dialysis August 19 Discussed with RN Aim to wean from ventilator or consider tracheostomy Permacath was removed on August 12 Dialysis 08/11 Transfusion as needed Patient had hematemesis meds IV as possible Surveillance blood cultures tomorrow Plan to put the permacath back in on Thursday if cultures are negative keep BP and BS in check Inflammatory markers per orders Subjective ROS Limited/Unobtainable: Yes Constitutional: Reports: other - More responsive remains intubated Objective Objective Last 24 Hour Vital Signs Date Time Temp Pulse Resp B/P (MAP) Pulse Ox O2 Delivery O2 Flow Rate FiO2 08/19/19 08:00 66 28 146/80 (102) 88 66 08/19/19 07:27 40 08/19/19 07:00 64 25 147/71 (96) 99 08/19/19 06:54 61 18 50 08/19/19 06:00 152/73 08/19/19 06:00 68 28 152/73 (99) 100 08/19/19 05:02 61 18 50 08/19/19 05:00 97.6 63 31 152/73 (99) 99 08/19/19 04:30 67 20 156/76 (102) 100 08/19/19 04:00 63 29 171/88 (115) 99 08/19/19 04:00 50 08/19/19 04:00 63 29 171/88 (115) 99 08/19/19 04:00 Mechanical Ventilator Mechanical Ventilator Mechanical Ventilator 08/19/19 03:07 60 18 50 08/19/19 03:01 61 08/19/19 03:00 63 24 168/79 (108) 97 08/19/19 02:00 61 18 141/71 (94) 100 08/19/19 01:00 57 28 150/73 (98) 100 57 08/19/19 00:59 58 18 50 08/19/19 00:00 Mechanical Ventilator Mechanical Ventilator Mechanical Ventilator 08/19/19 00:00 97.6 57 20 144/69 (94) 100 08/19/19 00:00 144/69 08/19/19 00:00 50 08/18/19 23:06 55 08/18/19 23:00 62 18 170/72 (104) 100 08/18/19 22:57 65 18 50 08/18/19 22:00 79 23 134/80 (98) 100 08/18/19 21:04 65 18 50 08/18/19 21:00 57 30 134/79 (97) 100 08/18/19 20:02 58 08/18/19 20:00 50 08/18/19 20:00 Mechanical Ventilator Mechanical Ventilator Mechanical Ventilator 08/18/19 20:00 97.5 59 25 143/72 (95) 100 08/18/19 19:00 62 20 148/69 (95) 100 08/18/19 18:59 63 18 50 08/18/19 18:04 52 18 142/75 (97) 100 08/18/19 18:00 146/76 08/18/19 17:00 54 30 146/76 (99) 100 08/18/19 16:52 59 18 50 08/18/19 16:05 Mechanical Ventilator Mechanical Ventilator Mechanical Ventilator 08/18/19 16:00 Mechanical Ventilator Mechanical Ventilator Mechanical Ventilator 08/18/19 16:00 97.7 53 42 158/70 (99) 100 08/18/19 16:00 50 08/18/19 15:24 61 08/18/19 15:00 63 19 144/65 (91) 100 08/18/19 14:55 62 18 50 08/18/19 14:00 63 18 121/71 (88) 100 08/18/19 13:28 67 18 50 08/18/19 13:00 69 18 97/60 (72) 100 08/18/19 12:00 Mechanical Ventilator Mechanical Ventilator Mechanical Ventilator 08/18/19 12:00 97.7 73 19 127/110 (116) 100 08/18/19 12:00 50 08/18/19 11:45 160/94 08/18/19 11:37 72 08/18/19 11:05 54 18 50 08/18/19 11:00 61 24 160/94 (116) 100 08/18/19 10:00 54 18 159/86 (110) 100 08/18/19 09:15 57 18 50 08/18/19 09:00 60 19 148/92 (110) 100 Intake and Output 08/18/19 08/19/19 19:00 07:00 Intake Total 1285 ml 705 ml Output Total 0 ml 1 ml Balance 1285 ml 704 ml Intake Free Water 100 ml 280 ml IV Total 455 ml 55 ml Tube Feeding 130 ml 370 ml Hemodialysis 600 ml Output Urine Total 0 ml 1 ml # Bowel Movements 3 2 Laboratory Tests 08/19/19 03:40: White Blood Count 6.3, Red Blood Count 3.46L, Hemoglobin 10.7L, Hematocrit 31.1L , Mean Corpuscular Volume 90, Mean Corpuscular Hemoglobin 31.0, Mean Corpuscular Hemoglobin Concent 34.4, Red Cell Distribution Width 18.2H, Platelet Count 319, Mean Platelet Volume 6.4L, Neutrophils (%) (Auto) 40.3L, Lymphocytes (%) (Auto) 49.7H, Monocytes (%) (Auto) 7.7, Eosinophils (%) (Auto) 0.7, Basophils (%) (Auto) 1.6, Sodium Level 143, Potassium Level 3.2L, Chloride Level 106, Carbon Dioxide Level 25, Anion Gap 12, Blood Urea Nitrogen 28H, Creatinine 3.6H, Estimat Glomerular Filtration Rate 12.2, Glucose Level 119H, Calcium Level 8.5, Phosphorus Level 2.9, Magnesium Level 1.5L, Total Bilirubin 0.5, Aspartate Amino Transf (AST/SGOT) 23, Alanine Aminotransferase (ALT/SGPT) 9L, Alkaline Phosphatase 149H, C-Reactive Protein, Quantitative 2.6H, Pro-B- Type Natriuretic Peptide > 00035F, Total Protein 5.2L, Albumin 1.1L, Globulin 4.1, Albumin/Globulin Ratio 0.3L Height (Feet): 5 Height (Inches): 0.33 Weight (Pounds): 98 General Appearance: no apparent distress Cardiovascular: normal rate Respiratory/Chest: decreased breath sounds Abdomen: soft, other - PEG in place GT feeding on Objective no change William Blackwood MD Aug 19, 2019 08:45
--- NOTE | 2019-08-19 08:54 | Critical Care Progress Note ---
Assessment/Plan Assessment/Plan respiratory failure hemoptysis hypoxemia chronic renal failure toxic met encephalopathy severe protein calorie malnutrition cachexia left lung whiteout/collapse, improved with intubation s/p intubation PLAN care noted vent support has a 7 ETT would need to d/w family gi noted antibiotics monitor imaging for change elevated head watch fluid status nutrition as able off load ROM ICU care and management critical at present requires ICU management feeds as able medications/laboratory data/nursing notes/ICU care reviewed in detail note reviewed and edited care discussed with RN and RT ICU time spent 40 minutes coordinating care Critical Care - Subjective Interval Events: care noted on vent left lung reexpanded repeat cxr pending d/w RN and renal likely will not wean poor LOC remains critical ROS Limited/Unobtainable: Yes Condition: critical EKG Rhythm: Sinus Rhythm Residuals: minimal Tube Feeding Tolerated: yes I&O: Intake and Output 08/18/19 08/19/19 19:00 07:00 Intake Total 1285 ml 705 ml Output Total 0 ml 1 ml Balance 1285 ml 704 ml Intake Free Water 100 ml 280 ml IV Total 455 ml 55 ml Tube Feeding 130 ml 370 ml Hemodialysis 600 ml Output Urine Total 0 ml 1 ml # Bowel Movements 3 2 Critical Care - Objective CXR: rexpanded left lung still with infiltrate left base ET-Tube: 7.0 ET Position: 19 Last 24 Hour Vital Signs Date Time Temp Pulse Resp B/P (MAP) Pulse Ox O2 Delivery O2 Flow Rate FiO2 08/19/19 08:00 66 28 146/80 (102) 88 66 08/19/19 07:27 40 08/19/19 07:00 64 25 147/71 (96) 99 08/19/19 06:54 61 18 50 08/19/19 06:00 152/73 08/19/19 06:00 68 28 152/73 (99) 100 08/19/19 05:02 61 18 50 08/19/19 05:00 97.6 63 31 152/73 (99) 99 08/19/19 04:30 67 20 156/76 (102) 100 08/19/19 04:00 63 29 171/88 (115) 99 08/19/19 04:00 50 08/19/19 04:00 63 29 171/88 (115) 99 08/19/19 04:00 Mechanical Ventilator Mechanical Ventilator Mechanical Ventilator 08/19/19 03:07 60 18 50 08/19/19 03:01 61 08/19/19 03:00 63 24 168/79 (108) 97 08/19/19 02:00 61 18 141/71 (94) 100 08/19/19 01:00 57 28 150/73 (98) 100 57 08/19/19 00:59 58 18 50 08/19/19 00:00 Mechanical Ventilator Mechanical Ventilator Mechanical Ventilator 08/19/19 00:00 97.6 57 20 144/69 (94) 100 08/19/19 00:00 144/69 08/19/19 00:00 50 08/18/19 23:06 55 08/18/19 23:00 62 18 170/72 (104) 100 08/18/19 22:57 65 18 50 08/18/19 22:00 79 23 134/80 (98) 100 08/18/19 21:04 65 18 50 08/18/19 21:00 57 30 134/79 (97) 100 08/18/19 20:02 58 08/18/19 20:00 50 08/18/19 20:00 Mechanical Ventilator Mechanical Ventilator Mechanical Ventilator 08/18/19 20:00 97.5 59 25 143/72 (95) 100 08/18/19 19:00 62 20 148/69 (95) 100 08/18/19 18:59 63 18 50 08/18/19 18:04 52 18 142/75 (97) 100 08/18/19 18:00 146/76 08/18/19 17:00 54 30 146/76 (99) 100 08/18/19 16:52 59 18 50 08/18/19 16:05 Mechanical Ventilator Mechanical Ventilator Mechanical Ventilator 08/18/19 16:00 Mechanical Ventilator Mechanical Ventilator Mechanical Ventilator 08/18/19 16:00 97.7 53 42 158/70 (99) 100 08/18/19 16:00 50 08/18/19 15:24 61 08/18/19 15:00 63 19 144/65 (91) 100 08/18/19 14:55 62 18 50 08/18/19 14:00 63 18 121/71 (88) 100 08/18/19 13:28 67 18 50 08/18/19 13:00 69 18 97/60 (72) 100 08/18/19 12:00 Mechanical Ventilator Mechanical Ventilator Mechanical Ventilator 08/18/19 12:00 97.7 73 19 127/110 (116) 100 08/18/19 12:00 50 08/18/19 11:45 160/94 08/18/19 11:37 72 08/18/19 11:05 54 18 50 08/18/19 11:00 61 24 160/94 (116) 100 08/18/19 10:00 54 18 159/86 (110) 100 08/18/19 09:15 57 18 50 08/18/19 09:00 60 19 148/92 (110) 100 Labs: Labs Test 08/16/19 09:50 08/16/19 21:20 08/17/19 04:05 08/17/19 08:46 White Blood Count 5.1 K/UL (4.8-10.8) 5.7 K/UL (4.8-10.8) Red Blood Count 3.89 M/UL (4.20-5.40) 3.53 M/UL (4.20-5.40) Hemoglobin 11.6 G/DL (12.0-16.0) 10.6 G/DL (12.0-16.0) Hematocrit 34.5 % (37.0-47.0) 31.8 % (37.0-47.0) Mean Corpuscular Volume 89 FL (80-99) 90 FL (80-99) Mean Corpuscular Hemoglobin 29.8 PG (27.0-31.0) 30.1 PG (27.0-31.0) Mean Corpuscular Hemoglobin Concent 33.7 G/DL (32.0-36.0) 33.4 G/DL (32.0-36.0) Red Cell Distribution Width 16.7 % (11.6-14.8) 17.8 % (11.6-14.8) Platelet Count 307 K/UL (150-450) 292 K/UL (150-450) Mean Platelet Volume 6.4 FL (6.5-10.1) 6.6 FL (6.5-10.1) Neutrophils (%) (Auto) 56.4 % (45.0-75.0) 37.7 % (45.0-75.0) Lymphocytes (%) (Auto) 34.1 % (20.0-45.0) 51.2 % (20.0-45.0) Monocytes (%) (Auto) 7.9 % (1.0-10.0) 9.0 % (1.0-10.0) Eosinophils (%) (Auto) 0.6 % (0.0-3.0) 0.6 % (0.0-3.0) Basophils (%) (Auto) 1.0 % (0.0-2.0) 1.6 % (0.0-2.0) Sodium Level 147 MMOL/L (136-145) 145 MMOL/L (136-145) Potassium Level 3.4 MMOL/L (3.5-5.1) 3.5 MMOL/L (3.5-5.1) Chloride Level 109 MMOL/L (98-107) 109 MMOL/L (98-107) Carbon Dioxide Level 27 MMOL/L (21-32) 28 MMOL/L (21-32) Anion Gap 11 mmol/L (5-15) 9 mmol/L (5-15) Blood Urea Nitrogen 42 mg/dL (7-18) 39 mg/dL (7-18) Creatinine 5.0 MG/DL (0.55-1.30) 4.7 MG/DL (0.55-1.30) Estimat Glomerular Filtration Rate 8.4 mL/min (>60) 9.0 mL/min (>60) Glucose Level 141 MG/DL (74-106) 88 MG/DL (74-106) Calcium Level 9.0 MG/DL (8.5-10.1) 8.9 MG/DL (8.5-10.1) Phosphorus Level 5.1 MG/DL (2.5-4.9) Magnesium Level 2.0 MG/DL (1.8-2.4) Total Bilirubin 0.5 MG/DL (0.2-1.0) 0.5 MG/DL (0.2-1.0) Aspartate Amino Transf (AST/SGOT) 20 U/L (15-37) 19 U/L (15-37) Alanine Aminotransferase (ALT/SGPT) 8 U/L (12-78) < 6 U/L (12-78) Alkaline Phosphatase 120 U/L (46-116) 113 U/L (46-116) C-Reactive Protein, Quantitative 3.9 mg/dL (0.00-0.90) Pro-B-Type Natriuretic Peptide > 16304 pg/mL (0-125) Total Protein 5.5 G/DL (6.4-8.2) 5.4 G/DL (6.4-8.2) Albumin 1.3 G/DL (3.4-5.0) 1.3 G/DL (3.4-5.0) Globulin 4.2 g/dL 4.1 g/dL Albumin/Globulin Ratio 0.3 (1.0-2.7) 0.3 (1.0-2.7) Prothrombin Time 12.4 SEC (9.30-11.50) 12.5 SEC (9.30-11.50) Prothromb Time International Ratio 1.2 (0.9-1.1) 1.2 (0.9-1.1) Arterial Blood pH 7.486 (7.350-7.450) Arterial Blood Partial Pressure CO2 35.3 mmHg (35.0-45.0) Arterial Blood Partial Pressure O2 121.4 mmHg (75.0-100.0) Arterial Blood HCO3 26.1 mmol/L (22.0-26.0) Arterial Blood Oxygen Saturation 97.4 % (95-100) Arterial Blood Base Excess 2.7 (-2-2) Cuauhtemoc Test Positive Test 08/18/19 07:35 08/19/19 03:40 White Blood Count 7.3 K/UL (4.8-10.8) 6.3 K/UL (4.8-10.8) Red Blood Count 3.55 M/UL (4.20-5.40) 3.46 M/UL (4.20-5.40) Hemoglobin 10.7 G/DL (12.0-16.0) 10.7 G/DL (12.0-16.0) Hematocrit 32.0 % (37.0-47.0) 31.1 % (37.0-47.0) Mean Corpuscular Volume 90 FL (80-99) 90 FL (80-99) Mean Corpuscular Hemoglobin 30.2 PG (27.0-31.0) 31.0 PG (27.0-31.0) Mean Corpuscular Hemoglobin Concent 33.5 G/DL (32.0-36.0) 34.4 G/DL (32.0-36.0) Red Cell Distribution Width 18.3 % (11.6-14.8) 18.2 % (11.6-14.8) Platelet Count 315 K/UL (150-450) 319 K/UL (150-450) Mean Platelet Volume 6.4 FL (6.5-10.1) 6.4 FL (6.5-10.1) Neutrophils (%) (Auto) 40.7 % (45.0-75.0) 40.3 % (45.0-75.0) Lymphocytes (%) (Auto) 49.6 % (20.0-45.0) 49.7 % (20.0-45.0) Monocytes (%) (Auto) 8.2 % (1.0-10.0) 7.7 % (1.0-10.0) Eosinophils (%) (Auto) 0.1 % (0.0-3.0) 0.7 % (0.0-3.0) Basophils (%) (Auto) 1.5 % (0.0-2.0) 1.6 % (0.0-2.0) Sodium Level 146 MMOL/L (136-145) 143 MMOL/L (136-145) Potassium Level 3.0 MMOL/L (3.5-5.1) 3.2 MMOL/L (3.5-5.1) Chloride Level 110 MMOL/L (98-107) 106 MMOL/L (98-107) Carbon Dioxide Level 25 MMOL/L (21-32) 25 MMOL/L (21-32) Anion Gap 11 mmol/L (5-15) 12 mmol/L (5-15) Blood Urea Nitrogen 42 mg/dL (7-18) 28 mg/dL (7-18) Creatinine 4.9 MG/DL (0.55-1.30) 3.6 MG/DL (0.55-1.30) Estimat Glomerular Filtration Rate 8.5 mL/min (>60) 12.2 mL/min (>60) Glucose Level 99 MG/DL (74-106) 119 MG/DL (74-106) Calcium Level 8.7 MG/DL (8.5-10.1) 8.5 MG/DL (8.5-10.1) Total Bilirubin 0.6 MG/DL (0.2-1.0) 0.5 MG/DL (0.2-1.0) Aspartate Amino Transf (AST/SGOT) 20 U/L (15-37) 23 U/L (15-37) Alanine Aminotransferase (ALT/SGPT) < 6 U/L (12-78) 9 U/L (12-78) Alkaline Phosphatase 110 U/L (46-116) 149 U/L (46-116) Total Protein 5.3 G/DL (6.4-8.2) 5.2 G/DL (6.4-8.2) Albumin 1.3 G/DL (3.4-5.0) 1.1 G/DL (3.4-5.0) Globulin 4.0 g/dL 4.1 g/dL Albumin/Globulin Ratio 0.3 (1.0-2.7) 0.3 (1.0-2.7) Thyroid Stimulating Hormone (TSH) 4.897 uiU/mL (0.358-3.740) Free Thyroxine 1.45 NG/DL (0.76-1.46) Phosphorus Level 2.9 MG/DL (2.5-4.9) Magnesium Level 1.5 MG/DL (1.8-2.4) C-Reactive Protein, Quantitative 2.6 mg/dL (0.00-0.90) Pro-B-Type Natriuretic Peptide > 27213 pg/mL (0-125) Objective: WDWN NAD intubated reduced breath sounds bilaterally without rhonchi or wheeze [id number] without MRG NABS nontender no HSM no CCE contractures feeding tube in place no distention poorly responsive nonfocal cachectic reviewed and edited Micro: Microbiology Date/Time Source Procedure Growth Status 08/17/19 11:14 Sputum Induced Gram Stain - Final Resulted 08/17/19 11:14 Sputum Induced Sputum Culture - Preliminary NO GROWTH Resulted Accucheck: 128 Malcolm Cruz MD Aug 19, 2019 08:54
[2019-08-19] MEDS: Meropenem 500 MG in NS 55 ML IVPB SCH ×2 (09:48→20:33)
--- NOTE | 2019-08-19 10:22 | Infectious Diseases Prog Note ---
Assessment/Plan Assessment/Plan antibiotics : meropenem, fluconazole A 1. jraad albicans fungemia 2. right shoulder septic arthritis with staph aureus s/p rx 3. renal failure 4. thrombocytopenia resolved 7. diabetes mellitus 8. hypertension 9. respiratory failure P 1. continue meropenem 2. continue fluconazole 10 more days 3. will follow up cultures Subjective ROS Limited/Unobtainable: Yes Allergies: Coded Allergies: VANCOMYCIN (Unverified Allergy, Unknown, 08/02/19) Objective Vital Signs Last 24 Hour Vital Signs Date Time Temp Pulse Resp B/P (MAP) Pulse Ox O2 Delivery O2 Flow Rate FiO2 08/19/19 08:36 84 18 30 40 08/19/19 08:00 66 28 146/80 (102) 88 66 08/19/19 08:00 40 08/19/19 08:00 Mechanical Ventilator Mechanical Ventilator 08/19/19 07:27 40 08/19/19 07:00 64 25 147/71 (96) 99 08/19/19 06:54 61 18 50 08/19/19 06:00 152/73 08/19/19 06:00 68 28 152/73 (99) 100 08/19/19 05:02 61 18 50 08/19/19 05:00 97.6 63 31 152/73 (99) 99 08/19/19 04:30 67 20 156/76 (102) 100 08/19/19 04:00 63 29 171/88 (115) 99 08/19/19 04:00 50 08/19/19 04:00 63 29 171/88 (115) 99 08/19/19 04:00 Mechanical Ventilator Mechanical Ventilator Mechanical Ventilator 08/19/19 03:07 60 18 50 08/19/19 03:01 61 08/19/19 03:00 63 24 168/79 (108) 97 08/19/19 02:00 61 18 141/71 (94) 100 08/19/19 01:00 57 28 150/73 (98) 100 57 08/19/19 00:59 58 18 50 08/19/19 00:00 Mechanical Ventilator Mechanical Ventilator Mechanical Ventilator 08/19/19 00:00 97.6 57 20 144/69 (94) 100 08/19/19 00:00 144/69 08/19/19 00:00 50 08/18/19 23:06 55 08/18/19 23:00 62 18 170/72 (104) 100 08/18/19 22:57 65 18 50 08/18/19 22:00 79 23 134/80 (98) 100 08/18/19 21:04 65 18 50 08/18/19 21:00 57 30 134/79 (97) 100 08/18/19 20:02 58 08/18/19 20:00 50 08/18/19 20:00 Mechanical Ventilator Mechanical Ventilator Mechanical Ventilator 08/18/19 20:00 97.5 59 25 143/72 (95) 100 08/18/19 19:00 62 20 148/69 (95) 100 08/18/19 18:59 63 18 50 08/18/19 18:04 52 18 142/75 (97) 100 08/18/19 18:00 146/76 08/18/19 17:00 54 30 146/76 (99) 100 08/18/19 16:52 59 18 50 08/18/19 16:05 Mechanical Ventilator Mechanical Ventilator Mechanical Ventilator 08/18/19 16:00 Mechanical Ventilator Mechanical Ventilator Mechanical Ventilator 08/18/19 16:00 97.7 53 42 158/70 (99) 100 08/18/19 16:00 50 08/18/19 15:24 61 08/18/19 15:00 63 19 144/65 (91) 100 08/18/19 14:55 62 18 50 08/18/19 14:00 63 18 121/71 (88) 100 08/18/19 13:28 67 18 50 08/18/19 13:00 69 18 97/60 (72) 100 08/18/19 12:00 Mechanical Ventilator Mechanical Ventilator Mechanical Ventilator 08/18/19 12:00 97.7 73 19 127/110 (116) 100 08/18/19 12:00 50 08/18/19 11:45 160/94 08/18/19 11:37 72 08/18/19 11:05 54 18 50 08/18/19 11:00 61 24 160/94 (116) 100 Height (Feet): 5 Height (Inches): 4.00 Weight (Pounds): 126 HEENT: other - intubated Respiratory/Chest: lungs clear Cardiovascular: normal rate, regular rhythm, no gallop/murmur Abdomen: soft, non tender Extremities: other - + edema, right shoulder wound clean, right arm ecchymoses , right groin catheter Microbiology Date/Time Source Procedure Growth Status 08/17/19 11:14 Sputum Induced Gram Stain - Final Resulted 08/17/19 11:14 Sputum Induced Sputum Culture - Preliminary NO GROWTH Resulted Laboratory Tests Test 08/19/19 03:40 White Blood Count 6.3 K/UL (4.8-10.8) Red Blood Count 3.46 M/UL (4.20-5.40) L Hemoglobin 10.7 G/DL (12.0-16.0) L Hematocrit 31.1 % (37.0-47.0) L Mean Corpuscular Volume 90 FL (80-99) Mean Corpuscular Hemoglobin 31.0 PG (27.0-31.0) Mean Corpuscular Hemoglobin Concent 34.4 G/DL (32.0-36.0) Red Cell Distribution Width 18.2 % (11.6-14.8) H Platelet Count 319 K/UL (150-450) Mean Platelet Volume 6.4 FL (6.5-10.1) L Neutrophils (%) (Auto) 40.3 % (45.0-75.0) L Lymphocytes (%) (Auto) 49.7 % (20.0-45.0) H Monocytes (%) (Auto) 7.7 % (1.0-10.0) Eosinophils (%) (Auto) 0.7 % (0.0-3.0) Basophils (%) (Auto) 1.6 % (0.0-2.0) Sodium Level 143 MMOL/L (136-145) Potassium Level 3.2 MMOL/L (3.5-5.1) L Chloride Level 106 MMOL/L (98-107) Carbon Dioxide Level 25 MMOL/L (21-32) Anion Gap 12 mmol/L (5-15) Blood Urea Nitrogen 28 mg/dL (7-18) H Creatinine 3.6 MG/DL (0.55-1.30) H Estimat Glomerular Filtration Rate 12.2 mL/min (>60) Glucose Level 119 MG/DL (74-106) H Calcium Level 8.5 MG/DL (8.5-10.1) Phosphorus Level 2.9 MG/DL (2.5-4.9) Magnesium Level 1.5 MG/DL (1.8-2.4) L Total Bilirubin 0.5 MG/DL (0.2-1.0) Aspartate Amino Transf (AST/SGOT) 23 U/L (15-37) Alanine Aminotransferase (ALT/SGPT) 9 U/L (12-78) L Alkaline Phosphatase 149 U/L (46-116) H C-Reactive Protein, Quantitative 2.6 mg/dL (0.00-0.90) H Pro-B-Type Natriuretic Peptide > 51999 pg/mL (0-125) H Total Protein 5.2 G/DL (6.4-8.2) L Albumin 1.1 G/DL (3.4-5.0) L Globulin 4.1 g/dL Albumin/Globulin Ratio 0.3 (1.0-2.7) L Current Medications Medications (Trade) Dose Ordered Sig/Javier Route PRN Reason Start Time Stop Time Status Last Admin Dose Admin Albuterol/ Ipratropium (Albuterol/ Ipratropium) 3 ml Q4H PRN HHN Shortness of Breath 08/19/19 07:45 08/24/19 07:44 Atropine Sulfate (Atropine) 1 mg Q4H PRN IVP Per rx protocol 08/13/19 08:30 09/12/19 08:29 Chlorhexidine Gluconate (Nae-Hex 2%) 1 applic DAILY@2000 TOPIC 08/15/19 20:00 09/14/19 19:59 08/18/19 19:50 Dextrose (Dextrose 50%) 50 ml Q30M PRN IV Hypoglycemia 08/11/19 10:30 09/04/19 17:44 08/18/19 12:36 Diphenhydramine HCl (Benadryl) 50 mg Q4H PRN IVP Itching 08/09/19 14:30 09/08/19 14:29 08/13/19 02:39 Epoetin Thomas (Epoetin Thomas(ESRD on dialysis)) 4,000 unit [id number]-[id number]-[id number] SUBQ 08/12/19 21:00 09/11/19 20:59 08/17/19 21:01 Fluconazole/ Sodium Chloride 100 ml @ 100 mls/hr Q24H IV 08/18/19 13:00 08/25/19 12:59 08/18/19 13:01 Hydralazine HCl (Apresoline) 10 mg Q4H PRN IV For High Blood Pressure 08/18/19 12:44 09/17/19 12:43 Lansoprazole (Prevacid) 30 mg BID GT 08/19/19 09:00 09/18/19 08:59 Levothyroxine Sodium (Synthroid) 50 mcg DAILY IV 08/19/19 10:30 09/18/19 10:29 08/19/19 09:48 Lorazepam (Ativan 2mg/ml 1ml) 1 mg Q3H PRN IV For Anxiety 08/17/19 11:30 08/24/19 11:29 Meropenem 500 mg/ Sodium Chloride 55 ml @ 110 mls/hr EVERY 12 HOURS IVPB 08/18/19 21:00 08/23/19 20:59 08/19/19 09:48 Metoclopramide HCl (Reglan) 5 mg Q8H PRN IVP Nausea & Vomiting 08/09/19 12:39 09/08/19 12:38 Nitroglycerin (Nitro-Bid) 1 inch Q6HR TOPIC 08/09/19 12:39 09/08/19 12:38 08/18/19 05:54 Melissa Solraes MD Aug 19, 2019 10:22
--- NOTE | 2019-08-19 10:27 | Diagnostic Imaging Report ---
Indication: Shortness of breath Technique: One view of the chest Comparison: 08/17/2019 Findings: Interim reexpansion of previously completely atelectatic left lung. There is still some residual volume loss as well as likely pleural fluid and infiltrate in the left mid and lower lung. Right lung and pleural space are clear. Large pneumoperitoneum is again demonstrated. Impression: Interim reexpansion of previously atelectatic left lung. There is some residual infiltrate, atelectasis, pleural fluid, however. Stable large pneumoperitoneum, presumably related to recent gastrostomy Other stable findings as described
--- NOTE | 2019-08-19 12:24 | Surgery Progress Note ---
Surgery Progress Note Subjective Procedure Performed Right Femoral Temporary Hemodialysis catheter Insertion Additional Comments intubated, awake, eyes open spont, on vent support. labs noted Objective Last 24 Hour Vital Signs Date Time Temp Pulse Resp B/P (MAP) Pulse Ox O2 Delivery O2 Flow Rate FiO2 08/19/19 11:11 65 18 30 40 08/19/19 11:00 66 29 159/65 (96) 100 66 08/19/19 10:00 63 20 150/46 (80) 100 08/19/19 09:00 98.8 61 21 152/67 (95) 100 08/19/19 08:36 84 18 30 40 08/19/19 08:00 66 28 146/80 (102) 88 66 08/19/19 08:00 62 08/19/19 08:00 40 08/19/19 08:00 Mechanical Ventilator Mechanical Ventilator 08/19/19 07:27 40 08/19/19 07:00 64 25 147/71 (96) 99 08/19/19 06:54 61 18 50 08/19/19 06:00 152/73 08/19/19 06:00 68 28 152/73 (99) 100 08/19/19 05:02 61 18 50 08/19/19 05:00 97.6 63 31 152/73 (99) 99 08/19/19 04:30 67 20 156/76 (102) 100 08/19/19 04:00 63 29 171/88 (115) 99 08/19/19 04:00 50 08/19/19 04:00 63 29 171/88 (115) 99 08/19/19 04:00 Mechanical Ventilator Mechanical Ventilator Mechanical Ventilator 08/19/19 03:07 60 18 50 08/19/19 03:01 61 08/19/19 03:00 63 24 168/79 (108) 97 08/19/19 02:00 61 18 141/71 (94) 100 08/19/19 01:00 57 28 150/73 (98) 100 57 08/19/19 00:59 58 18 50 08/19/19 00:00 Mechanical Ventilator Mechanical Ventilator Mechanical Ventilator 08/19/19 00:00 97.6 57 20 144/69 (94) 100 08/19/19 00:00 144/69 08/19/19 00:00 50 08/18/19 23:06 55 08/18/19 23:00 62 18 170/72 (104) 100 08/18/19 22:57 65 18 50 08/18/19 22:00 79 23 134/80 (98) 100 08/18/19 21:04 65 18 50 08/18/19 21:00 57 30 134/79 (97) 100 08/18/19 20:02 58 08/18/19 20:00 50 08/18/19 20:00 Mechanical Ventilator Mechanical Ventilator Mechanical Ventilator 08/18/19 20:00 97.5 59 25 143/72 (95) 100 08/18/19 19:00 62 20 148/69 (95) 100 08/18/19 18:59 63 18 50 08/18/19 18:04 52 18 142/75 (97) 100 08/18/19 18:00 146/76 08/18/19 17:00 54 30 146/76 (99) 100 08/18/19 16:52 59 18 50 08/18/19 16:05 Mechanical Ventilator Mechanical Ventilator Mechanical Ventilator 08/18/19 16:00 Mechanical Ventilator Mechanical Ventilator Mechanical Ventilator 08/18/19 16:00 97.7 53 42 158/70 (99) 100 08/18/19 16:00 50 08/18/19 15:24 61 08/18/19 15:00 63 19 144/65 (91) 100 08/18/19 14:55 62 18 50 08/18/19 14:00 63 18 121/71 (88) 100 08/18/19 13:28 67 18 50 08/18/19 13:00 69 18 97/60 (72) 100 I&O Intake and Output 08/18/19 08/19/19 19:00 07:00 Intake Total 1285 ml 705 ml Output Total 0 ml 1 ml Balance 1285 ml 704 ml Intake Free Water 100 ml 280 ml IV Total 455 ml 55 ml Tube Feeding 130 ml 370 ml Hemodialysis 600 ml Output Urine Total 0 ml 1 ml # Bowel Movements 3 2 Dressing: other Wound: other Drains: other Cardiovascular: RSR Respiratory: decreased breath sounds Abdomen: soft, present bowel sounds Extremities: no cyanosis, other Laboratory Tests Test 08/19/19 03:40 White Blood Count 6.3 K/UL (4.8-10.8) Red Blood Count 3.46 M/UL (4.20-5.40) L Hemoglobin 10.7 G/DL (12.0-16.0) L Hematocrit 31.1 % (37.0-47.0) L Mean Corpuscular Volume 90 FL (80-99) Mean Corpuscular Hemoglobin 31.0 PG (27.0-31.0) Mean Corpuscular Hemoglobin Concent 34.4 G/DL (32.0-36.0) Red Cell Distribution Width 18.2 % (11.6-14.8) H Platelet Count 319 K/UL (150-450) Mean Platelet Volume 6.4 FL (6.5-10.1) L Neutrophils (%) (Auto) 40.3 % (45.0-75.0) L Lymphocytes (%) (Auto) 49.7 % (20.0-45.0) H Monocytes (%) (Auto) 7.7 % (1.0-10.0) Eosinophils (%) (Auto) 0.7 % (0.0-3.0) Basophils (%) (Auto) 1.6 % (0.0-2.0) Sodium Level 143 MMOL/L (136-145) Potassium Level 3.2 MMOL/L (3.5-5.1) L Chloride Level 106 MMOL/L (98-107) Carbon Dioxide Level 25 MMOL/L (21-32) Anion Gap 12 mmol/L (5-15) Blood Urea Nitrogen 28 mg/dL (7-18) H Creatinine 3.6 MG/DL (0.55-1.30) H Estimat Glomerular Filtration Rate 12.2 mL/min (>60) Glucose Level 119 MG/DL (74-106) H Calcium Level 8.5 MG/DL (8.5-10.1) Phosphorus Level 2.9 MG/DL (2.5-4.9) Magnesium Level 1.5 MG/DL (1.8-2.4) L Total Bilirubin 0.5 MG/DL (0.2-1.0) Aspartate Amino Transf (AST/SGOT) 23 U/L (15-37) Alanine Aminotransferase (ALT/SGPT) 9 U/L (12-78) L Alkaline Phosphatase 149 U/L (46-116) H C-Reactive Protein, Quantitative 2.6 mg/dL (0.00-0.90) H Pro-B-Type Natriuretic Peptide > 29924 pg/mL (0-125) H Total Protein 5.2 G/DL (6.4-8.2) L Albumin 1.1 G/DL (3.4-5.0) L Globulin 4.1 g/dL Albumin/Globulin Ratio 0.3 (1.0-2.7) L Assessment Post-op Diagnosis same Plan Problems: (1) Malnutrition Assessment & Plan: DAILY ESTIMATED NEEDS: Needs based on ESRD+ HD, underweight, wound/ 39.5kg 35-40 kcals/kg 8699-5233 total kcals 1.25-1.8 g protein/kg 49-71 g total protein 20-22 mL/kg 790-869 total fluid mLs NUTRITION DIAGNOSIS: * Increased kcal and protein needs r/t underweight status, HD needs, wuond healing as evidenced by pt is underweight per guidelines, ESRD, on HD, admitted non-blanching erythema wounds @ BL heels and sacrum * Swallowing difficulty R/T dysphagia as evidenced by [employer] recommends temporary nonoral feeding at this time, s/p NGT insertion, on NGT feeding-> now s/p self removal, NPO. CURRENT TF:NPO PO DIET RECOMMENDATIONS: WHEN SAFE FOR ORAL DIET -> renal/ texture per [employer] ENTERAL NUTRITION RECOMMENDATIONS: W/ GI access: Nepro @ 35ml/hr x 22 hrs to provide 770ml, 1386kcal, 62g prot, 560ml free water * W/ GI access, resume TF on Nepro * Initiate Nepro @ 15ml/hr x 6 hrs, advance 10ml q 4-6 hrs as tolerated to goal rate. * Hold 1 hour before and after Synthroid med * HOB over 30 degrees/ water flush per MD. ADDITIONAL RECOMMENDATIONS: 1) Calibrated bed scale wt for accurate CBW -> daily wt monitoring Per HD record: dry wt on 07/30=39.5kg (87lbs) 2) Wound care: (W/ GI access) add Nephorivte x 1 + Balta BID 3) Monitor NPO status: without GI access at this time, s/p pulling out NGT 4) Monitor for hypoglycemia while NPO 5) Monitor for continuity of HD (2) Septic arthritis Assessment & Plan: Pt presented on admission with generalized scaly rash . pt noted to be restless and scratching at skin. Bleeding from oral mucosa noted. Joint deformity noted to R shoulder. Surgical incision approximated with 11 sutures. Erythema but no exudate,or elevation in skin temp at site of incision. Historical incision R hip that is tunneled.Small amt seropurulent exudate noted. Periwound is erythematous,but no elevation in skin temp noted. No odor noted. Non-blanching erythema noted to sacrum. Perianal area is erythematous and excoriated. L heel is boggy with non-blanching erythema. R heel is soft with non-blanching erythema. No evidence of skin breakdown to all other bony prominences. Tx.plan: Cover R shoulder with Drsg and change daily and prn. Cleanse R hip wound with Saline. Apply Therahoney.Apply Cavilon Skin Barrier periwound. Cover with Optifoam drsg. Change every 3 days and prn. Apply Moisture Barrier Paste to perianal area and buttocks. Cover Sacrum with Optifoam drsg. Change every 3 days and prn. Apply Cavilon Skin Barrier to both heels. Cover each heel with Optifoam drsg. Change every 7 days and prn. APM/ELVIA Mattress overlay. Reposition at least every 2hours or as tolerated. Off-load heels with pillow. HD cath necessary HD as renal likely will need intubation (3) Wound, open, hip or thigh with complication Assessment & Plan: slow healing will need nutritional optimization difficult ng tube peg when stable sutures removed from right shoulder comfortable wean vent may need trach (4) Abscess of right hip (5) possible septic arthritis Camilo James Aug 19, 2019 12:24
--- NOTE | 2019-08-19 13:55 | Hematology/Onc Progress Note ---
Assessment/Plan Assessment/Plan # Thrombocytopenia - potential causes multifactorial, evaluate liver and viral etiologies to begin, in this case due to sepsis with septic shock also with cirrhosis and liver disease --> Hep panel and HIV ordered -> neg --> US abd to evaluate for cirrhosis and hsm ordered --> reviewed --> Peripheral smear ordered to evaluate for blasts /schistocytes --> abx and other meds have been reviewed --> ok for ppx if plt >50k w/ either heparin or lovenox --> Transfuse if Plt < 20k and fever, or if Plt < 10k without fever --> okay for permacath change once plt better--> for 08/14 --> plt trend: 43-->83-->237k-->292 # Anemia of chronic disease due to underlying chronic medical issues, multifactorial v Gi bleed --> Anemia workup has been ordered, rule out gi bleed --> No evidence of hemolysis is noted, peripheral smear has been reviewed. --> Hgb goal >7. Transfuse prn. --> Epogen has been started --> HOLD OFF IRON ferritin is >1000 --> Medications have been reviewed --> low threshold for gi evaluation in case has occult + --> hgb 9-->6.7-->9.2 -->10.5-->10.6 -->10.7 --> blood tx: 08/11 # Early sepsis with shock. --> abx as per id, recs noted # Healthcare-associated pneumonia. --> recs reviewed --> abx: jung/micafungin # Severe protein-calorie malnutrition. --> nutritional support # End-stage renal disease --> had as renal hd --> with permacath # History of hypertension. --> per cards, now with Bradycardia. # resp failure s/p vent # HypoThyroid # Ngt feedings # Dvt ppx scd's The timing of this note does not necessarily reflect the time of the patient was seen. Greatly appreciate consultation. Subjective Constitutional: Denies: no symptoms, chills, fever, malaise, weakness, other HEENT: Denies: no symptoms, eye pain, blurred vision, tearing, double vision, ear pain, ear discharge, nose pain, nose congestion, throat pain, throat swelling, mouth pain, mouth swelling, other Cardiovascular: Denies: no symptoms, chest pain, edema, irregular heart rate, lightheadedness, palpitations, syncope, other Respiratory: Denies: no symptoms, cough, shortness of breath, SOB with excertion, SOB at rest, sputum, wheezing, other Neurologic/Psychiatric: Denies: no symptoms, anxiety, depressed, emotional problems, headache, numbness, paresthesia, pre-existing deficit, seizure, tingling, tremors, weakness, other Endocrine: Denies: no symptoms, excessive sweating, flushing, intolerance to cold, intolerance to heat, increased hunger, increased thirst, increased urine, unexplained weight gain, unexplained weight loss, other Hematologic/Lymphatic: Denies: no symptoms, anemia, easy bleeding, easy bruising, adenopathy, other Allergies: Coded Allergies: VANCOMYCIN (Unverified Allergy, Unknown, 08/02/19) Subjective 08/11: no bleeding or chills, labs reviewed, no major bleeding, plt less than 50k 08/12: icu, s/p blood, hgb improved to 9.2, 08/14: icu, pending consent for thora and permacath, labs reviewed 08/15: new permacath placed, no bleeding, for hd, plt much improved, started lovenox sq 08/16: ett to be adjusted, bp on high end, micafungin started, possible bronch 08/17: weaning as per pulm, no events otherwise, labs noted 08/18: no events no bleeding, remains confused on vent, for hd Objective Objective Current Medications Medications (Trade) Dose Ordered Sig/Javier Route PRN Reason Start Time Stop Time Status Last Admin Dose Admin Albuterol/ Ipratropium (Albuterol/ Ipratropium) 3 ml Q4H PRN HHN Shortness of Breath 08/19/19 07:45 08/24/19 07:44 Atropine Sulfate (Atropine) 1 mg Q4H PRN IVP Per rx protocol 08/13/19 08:30 09/12/19 08:29 Chlorhexidine Gluconate (Nae-Hex 2%) 1 applic DAILY@1999 TOPIC 08/15/19 20:00 09/14/19 19:59 08/18/19 19:50 Dextrose (Dextrose 50%) 50 ml Q30M PRN IV Hypoglycemia 08/11/19 10:30 09/04/19 17:44 08/18/19 12:36 Diphenhydramine HCl (Benadryl) 50 mg Q4H PRN IVP Itching 08/09/19 14:30 09/08/19 14:29 08/13/19 02:39 Epoetin Thomas (Epoetin Thomas(ESRD on dialysis)) 4,000 unit SUBQ 08/12/19 21:00 09/11/19 20:59 08/17/19 21:01 Fluconazole/ Sodium Chloride 100 ml @ 100 mls/hr Q24H IV 08/18/19 13:00 08/25/19 12:59 08/19/19 12:31 Hydralazine HCl (Apresoline) 10 mg Q4H PRN IV For High Blood Pressure 08/18/19 12:44 09/17/19 12:43 Lansoprazole (Prevacid) 30 mg BID GT 08/19/19 09:00 09/18/19 08:59 Levothyroxine Sodium (Synthroid) 50 mcg DAILY IV 08/19/19 10:30 09/18/19 10:29 08/19/19 09:48 Lorazepam (Ativan 2mg/ml 1ml) 1 mg Q3H PRN IV For Anxiety 08/17/19 11:30 08/24/19 11:29 Meropenem 500 mg/ Sodium Chloride 55 ml @ 110 mls/hr EVERY 12 HOURS IVPB 08/18/19 21:00 08/23/19 20:59 08/19/19 09:48 Metoclopramide HCl (Reglan) 5 mg Q8H PRN IVP Nausea & Vomiting 08/09/19 12:39 09/08/19 12:38 Nitroglycerin (Nitro-Bid) 1 inch Q6HR TOPIC 08/09/19 12:39 09/08/19 12:38 08/19/19 12:31 Last 24 Hour Vital Signs Date Time Temp Pulse Resp B/P (MAP) Pulse Ox O2 Delivery O2 Flow Rate FiO2 08/19/19 13:00 64 26 151/65 (93) 100 64 08/19/19 12:47 82 18 30 40 08/19/19 12:31 155/115 3/6/20 12:00 40 08/19/19 12:00 Mechanical Ventilator Mechanical Ventilator 08/19/19 12:00 97.9 65 34 155/115 (128) 100 65 08/19/19 12:00 67 08/19/19 11:11 65 18 30 40 08/19/19 11:00 66 29 159/65 (96) 100 66 08/19/19 10:00 63 20 150/46 (80) 100 08/19/19 09:00 98.8 61 21 152/67 (95) 100 08/19/19 08:36 84 18 30 40 08/19/19 08:00 66 28 146/80 (102) 88 66 08/19/19 08:00 62 08/19/19 08:00 40 08/19/19 08:00 Mechanical Ventilator Mechanical Ventilator 08/19/19 07:27 40 08/19/19 07:00 64 25 147/71 (96) 99 08/19/19 06:54 61 18 50 08/19/19 06:00 152/73 08/19/19 06:00 68 28 152/73 (99) 100 08/19/19 05:02 61 18 50 08/19/19 05:00 97.6 63 31 152/73 (99) 99 08/19/19 04:30 67 20 156/76 (102) 100 08/19/19 04:00 63 29 171/88 (115) 99 08/19/19 04:00 50 08/19/19 04:00 63 29 171/88 (115) 99 08/19/19 04:00 Mechanical Ventilator Mechanical Ventilator Mechanical Ventilator 08/19/19 03:07 60 18 50 08/19/19 03:01 61 08/19/19 03:00 63 24 168/79 (108) 97 08/19/19 02:00 61 18 141/71 (94) 100 08/19/19 01:00 57 28 150/73 (98) 100 57 08/19/19 00:59 58 18 50 08/19/19 00:00 Mechanical Ventilator Mechanical Ventilator Mechanical Ventilator 08/19/19 00:00 97.6 57 20 144/69 (94) 100 08/19/19 00:00 144/69 08/19/19 00:00 50 08/18/19 23:06 55 08/18/19 23:00 62 18 170/72 (104) 100 08/18/19 22:57 65 18 50 08/18/19 22:00 79 23 134/80 (98) 100 08/18/19 21:04 65 18 50 08/18/19 21:00 57 30 134/79 (97) 100 08/18/19 20:02 58 08/18/19 20:00 50 08/18/19 20:00 Mechanical Ventilator Mechanical Ventilator Mechanical Ventilator 08/18/19 20:00 97.5 59 25 143/72 (95) 100 08/18/19 19:00 62 20 148/69 (95) 100 08/18/19 18:59 63 18 50 08/18/19 18:04 52 18 142/75 (97) 100 08/18/19 18:00 146/76 08/18/19 17:00 54 30 146/76 (99) 100 08/18/19 16:52 59 18 50 08/18/19 16:05 Mechanical Ventilator Mechanical Ventilator Mechanical Ventilator 08/18/19 16:00 Mechanical Ventilator Mechanical Ventilator Mechanical Ventilator 08/18/19 16:00 97.7 53 42 158/70 (99) 100 08/18/19 16:00 50 08/18/19 15:24 61 08/18/19 15:00 63 19 144/65 (91) 100 08/18/19 14:55 62 18 50 08/18/19 14:00 63 18 121/71 (88) 100 08/18/19 13:28 67 18 50 08/18/19 13:00 69 18 97/60 (72) 100 08/18/19 12:00 Mechanical Ventilator Mechanical Ventilator Mechanical Ventilator 08/18/19 12:00 97.7 73 19 127/110 (116) 100 08/18/19 12:00 50 08/18/19 11:45 160/94 08/18/19 11:37 72 08/18/19 11:05 54 18 50 08/18/19 11:00 61 24 160/94 (116) 100 08/18/19 10:00 54 18 159/86 (110) 100 08/18/19 09:15 57 18 50 08/18/19 09:00 60 19 148/92 (110) 100 08/18/19 08:15 58 08/18/19 08:00 97.7 57 23 154/72 (99) 100 08/18/19 08:00 50 08/18/19 08:00 Mechanical Ventilator Mechanical Ventilator Mechanical Ventilator 08/18/19 07:00 64 23 139/84 (102) 95 08/18/19 06:59 64 18 50 08/18/19 06:00 60 22 149/67 (94) 99 08/18/19 05:54 156/69 08/18/19 05:30 63 19 50 08/18/19 05:11 181/74 08/18/19 05:00 50 18 181/74 (109) 100 08/18/19 04:00 98.2 62 19 174/78 (110) 100 08/18/19 04:00 50 08/18/19 04:00 Mechanical Ventilator Mechanical Ventilator Mechanical Ventilator 08/18/19 04:00 60 08/18/19 03:19 71 18 50 08/18/19 03:00 61 21 170/75 (106) 100 08/18/19 02:00 63 19 172/71 (104) 100 08/18/19 01:04 74 18 50 08/18/19 01:00 61 18 160/73 (102) 100 08/18/19 00:00 50 08/18/19 00:00 98.8 62 21 151/71 (97) 100 08/18/19 00:00 147/74 08/18/19 00:00 Mechanical Ventilator Mechanical Ventilator Mechanical Ventilator 08/17/19 23:05 67 18 50 08/17/19 23:00 65 23 153/74 (100) 100 08/17/19 22:00 66 19 149/72 (97) 100 08/17/19 21:03 66 18 50 08/17/19 21:00 80 30 156/79 (104) 100 08/17/19 20:00 77 08/17/19 20:00 50 08/17/19 20:00 99.0 80 29 164/142 (149) 100 08/17/19 20:00 Mechanical Ventilator Mechanical Ventilator Mechanical Ventilator 08/17/19 19:30 84 18 50 08/17/19 19:00 77 31 151/133 (139) 99 08/17/19 18:00 74 26 158/65 (96) 97 08/17/19 17:33 134/87 08/17/19 17:00 72 23 156/78 (104) 99 08/17/19 16:58 73 18 50 3/4/20 16:00 50 08/17/19 16:00 98.8 64 18 148/80 (102) 97 08/17/19 16:00 Mechanical Ventilator Mechanical Ventilator Mechanical Ventilator 08/17/19 15:55 64 08/17/19 15:00 67 17 169/72 (104) 100 08/17/19 14:56 64 18 50 08/17/19 14:00 67 24 167/76 (106) 97 Intake and Output 08/18/19 08/19/19 19:00 07:00 Intake Total 1285 ml 705 ml Output Total 0 ml 1 ml Balance 1285 ml 704 ml Intake Free Water 100 ml 280 ml IV Total 455 ml 55 ml Tube Feeding 130 ml 370 ml Hemodialysis 600 ml Output Urine Total 0 ml 1 ml # Bowel Movements 3 2 Labs Test 08/16/19 21:20 08/17/19 04:05 08/17/19 08:46 08/18/19 07:35 Prothrombin Time 12.4 SEC (9.30-11.50) 12.5 SEC (9.30-11.50) Prothromb Time International Ratio 1.2 (0.9-1.1) 1.2 (0.9-1.1) White Blood Count 5.7 K/UL (4.8-10.8) 7.3 K/UL (4.8-10.8) Red Blood Count 3.53 M/UL (4.20-5.40) 3.55 M/UL (4.20-5.40) Hemoglobin 10.6 G/DL (12.0-16.0) 10.7 G/DL (12.0-16.0) Hematocrit 31.8 % (37.0-47.0) 32.0 % (37.0-47.0) Mean Corpuscular Volume 90 FL (80-99) 90 FL (80-99) Mean Corpuscular Hemoglobin 30.1 PG (27.0-31.0) 30.2 PG (27.0-31.0) Mean Corpuscular Hemoglobin Concent 33.4 G/DL (32.0-36.0) 33.5 G/DL (32.0-36.0) Red Cell Distribution Width 17.8 % (11.6-14.8) 18.3 % (11.6-14.8) Platelet Count 292 K/UL (150-450) 315 K/UL (150-450) Mean Platelet Volume 6.6 FL (6.5-10.1) 6.4 FL (6.5-10.1) Neutrophils (%) (Auto) 37.7 % (45.0-75.0) 40.7 % (45.0-75.0) Lymphocytes (%) (Auto) 51.2 % (20.0-45.0) 49.6 % (20.0-45.0) Monocytes (%) (Auto) 9.0 % (1.0-10.0) 8.2 % (1.0-10.0) Eosinophils (%) (Auto) 0.6 % (0.0-3.0) 0.1 % (0.0-3.0) Basophils (%) (Auto) 1.6 % (0.0-2.0) 1.5 % (0.0-2.0) Sodium Level 145 MMOL/L (136-145) 146 MMOL/L (136-145) Potassium Level 3.5 MMOL/L (3.5-5.1) 3.0 MMOL/L (3.5-5.1) Chloride Level 109 MMOL/L (98-107) 110 MMOL/L (98-107) Carbon Dioxide Level 28 MMOL/L (21-32) 25 MMOL/L (21-32) Anion Gap 9 mmol/L (5-15) 11 mmol/L (5-15) Blood Urea Nitrogen 39 mg/dL (7-18) 42 mg/dL (7-18) Creatinine 4.7 MG/DL (0.55-1.30) 4.9 MG/DL (0.55-1.30) Estimat Glomerular Filtration Rate 9.0 mL/min (>60) 8.5 mL/min (>60) Glucose Level 88 MG/DL (74-106) 99 MG/DL (74-106) Calcium Level 8.9 MG/DL (8.5-10.1) 8.7 MG/DL (8.5-10.1) Total Bilirubin 0.5 MG/DL (0.2-1.0) 0.6 MG/DL (0.2-1.0) Aspartate Amino Transf (AST/SGOT) 19 U/L (15-37) 20 U/L (15-37) Alanine Aminotransferase (ALT/SGPT) < 6 U/L (12-78) < 6 U/L (12-78) Alkaline Phosphatase 113 U/L (46-116) 110 U/L (46-116) Total Protein 5.4 G/DL (6.4-8.2) 5.3 G/DL (6.4-8.2) Albumin 1.3 G/DL (3.4-5.0) 1.3 G/DL (3.4-5.0) Globulin 4.1 g/dL 4.0 g/dL Albumin/Globulin Ratio 0.3 (1.0-2.7) 0.3 (1.0-2.7) Arterial Blood pH 7.486 (7.350-7.450) Arterial Blood Partial Pressure CO2 35.3 mmHg (35.0-45.0) Arterial Blood Partial Pressure O2 121.4 mmHg (75.0-100.0) Arterial Blood HCO3 26.1 mmol/L (22.0-26.0) Arterial Blood Oxygen Saturation 97.4 % (95-100) Arterial Blood Base Excess 2.7 (-2-2) Cuauhtemoc Test Positive Thyroid Stimulating Hormone (TSH) 4.897 uiU/mL (0.358-3.740) Free Thyroxine 1.45 NG/DL (0.76-1.46) Test 08/19/19 03:40 White Blood Count 6.3 K/UL (4.8-10.8) Red Blood Count 3.46 M/UL (4.20-5.40) Hemoglobin 10.7 G/DL (12.0-16.0) Hematocrit 31.1 % (37.0-47.0) Mean Corpuscular Volume 90 FL (80-99) Mean Corpuscular Hemoglobin 31.0 PG (27.0-31.0) Mean Corpuscular Hemoglobin Concent 34.4 G/DL (32.0-36.0) Red Cell Distribution Width 18.2 % (11.6-14.8) Platelet Count 319 K/UL (150-450) Mean Platelet Volume 6.4 FL (6.5-10.1) Neutrophils (%) (Auto) 40.3 % (45.0-75.0) Lymphocytes (%) (Auto) 49.7 % (20.0-45.0) Monocytes (%) (Auto) 7.7 % (1.0-10.0) Eosinophils (%) (Auto) 0.7 % (0.0-3.0) Basophils (%) (Auto) 1.6 % (0.0-2.0) Sodium Level 143 MMOL/L (136-145) Potassium Level 3.2 MMOL/L (3.5-5.1) Chloride Level 106 MMOL/L (98-107) Carbon Dioxide Level 25 MMOL/L (21-32) Anion Gap 12 mmol/L (5-15) Blood Urea Nitrogen 28 mg/dL (7-18) Creatinine 3.6 MG/DL (0.55-1.30) Estimat Glomerular Filtration Rate 12.2 mL/min (>60) Glucose Level 119 MG/DL (74-106) Calcium Level 8.5 MG/DL (8.5-10.1) Phosphorus Level 2.9 MG/DL (2.5-4.9) Magnesium Level 1.5 MG/DL (1.8-2.4) Total Bilirubin 0.5 MG/DL (0.2-1.0) Aspartate Amino Transf (AST/SGOT) 23 U/L (15-37) Alanine Aminotransferase (ALT/SGPT) 9 U/L (12-78) Alkaline Phosphatase 149 U/L (46-116) C-Reactive Protein, Quantitative 2.6 mg/dL (0.00-0.90) Pro-B-Type Natriuretic Peptide > 73216 pg/mL (0-125) Total Protein 5.2 G/DL (6.4-8.2) Albumin 1.1 G/DL (3.4-5.0) Globulin 4.1 g/dL Albumin/Globulin Ratio 0.3 (1.0-2.7) Height (Feet): 5 Height (Inches): 4.00 Weight (Pounds): 126 Objective gen: nad pulm: on trach+ / vent cv: rrr, no gmr abd: sfot, nt, nd ++ gt ext: no cce Gio Rob MD Aug 19, 2019 13:54
[2019-08-19] MEDS ORDERED: D5NS 1000ml IV ONE (15:47)
--- NOTE | 2019-08-19 16:03 | General Progress Note ---
Assessment/Plan Problem List: (1) Failure to thrive (0-17) ICD Codes: R62.51 - Failure to thrive (0-17) SNOMED: 762234002 (2) Hypertensive kidney disease ICD Codes: I12.9 - Hypertensive chronic kidney disease with stage 1 through stage 4 chronic kidney disease, or unspecified chronic kidney disease SNOMED: 82495436 (3) Pneumonia ICD Codes: J18.9 - Pneumonia, unspecified organism SNOMED: 055697198 Qualifiers: Qualified Codes: J18.9 - Pneumonia, unspecified organism (4) ESRD (end stage renal disease) ICD Codes: N18.6 - End stage renal disease SNOMED: 13676530 (5) Septic arthritis ICD Codes: M00.9 - Pyogenic arthritis, unspecified SNOMED: 641846943 (6) Thrombocytopenia ICD Codes: D69.6 - Thrombocytopenia, unspecified SNOMED: 615670005 (7) Hypotension ICD Codes: I95.9 - Hypotension, unspecified SNOMED: 69585584 Qualifiers: Qualified Codes: I95.3 - Hypotension of hemodialysis (8) Malnutrition ICD Codes: E46 - Unspecified protein-calorie malnutrition SNOMED: 41053039 Status: stable, not improved, unchanged, deteriorating Assessment/Plan: check stool ob and h/h cont icu care possible bronch per pulm resp rx/suctioning monitor plts iv PPI iv abx HD bp rx critical and guarded tube feeds per gi Subjective ROS Limited/Unobtainable: No Constitutional: Reports: weakness HEENT: Reports: no symptoms Cardiovascular: Reports: no symptoms Respiratory: Reports: shortness of breath, sputum Gastrointestinal/Abdominal: Reports: difficulty swallowing Genitourinary: Reports: no symptoms Neurologic/Psychiatric: Reports: pre-existing deficit Endocrine: Reports: no symptoms Hematologic/Lymphatic: Reports: anemia Allergies: Coded Allergies: VANCOMYCIN (Unverified Allergy, Unknown, 08/02/19) All Systems: reviewed and negative except above Subjective no events. on the vent. remains alert and awake. no fevers. not on feeds yet. d/ w staff. no events. Objective Last 24 Hour Vital Signs Date Time Temp Pulse Resp B/P (MAP) Pulse Ox O2 Delivery O2 Flow Rate FiO2 08/19/19 15:00 64 23 144/64 (90) 100 64 08/19/19 14:41 64 18 30 40 08/19/19 14:00 63 23 158/83 (108) 100 63 08/19/19 13:00 64 26 151/65 (93) 100 64 08/19/19 12:47 82 18 30 40 08/19/19 12:31 155/115 08/19/19 12:00 40 08/19/19 12:00 Mechanical Ventilator Mechanical Ventilator 08/19/19 12:00 97.9 65 34 155/115 (128) 100 65 08/19/19 12:00 67 08/19/19 11:11 65 18 30 40 08/19/19 11:00 66 29 159/65 (96) 100 66 08/19/19 10:00 63 20 150/46 (80) 100 08/19/19 09:00 98.8 61 21 152/67 (95) 100 08/19/19 08:36 84 18 30 40 08/19/19 08:00 66 28 146/80 (102) 88 66 08/19/19 08:00 62 08/19/19 08:00 40 08/19/19 08:00 Mechanical Ventilator Mechanical Ventilator 08/19/19 07:27 40 08/19/19 07:00 64 25 147/71 (96) 99 08/19/19 06:54 61 18 50 08/19/19 06:00 152/73 08/19/19 06:00 68 28 152/73 (99) 100 08/19/19 05:02 61 18 50 08/19/19 05:00 97.6 63 31 152/73 (99) 99 08/19/19 04:30 67 20 156/76 (102) 100 08/19/19 04:00 63 29 171/88 (115) 99 08/19/19 04:00 50 08/19/19 04:00 63 29 171/88 (115) 99 08/19/19 04:00 Mechanical Ventilator Mechanical Ventilator Mechanical Ventilator 08/19/19 03:07 60 18 50 08/19/19 03:01 61 08/19/19 03:00 63 24 168/79 (108) 97 08/19/19 02:00 61 18 141/71 (94) 100 08/19/19 01:00 57 28 150/73 (98) 100 57 08/19/19 00:59 58 18 50 08/19/19 00:00 Mechanical Ventilator Mechanical Ventilator Mechanical Ventilator 08/19/19 00:00 97.6 57 20 144/69 (94) 100 08/19/19 00:00 144/69 08/19/19 00:00 50 08/18/19 23:06 55 08/18/19 23:00 62 18 170/72 (104) 100 08/18/19 22:57 65 18 50 08/18/19 22:00 79 23 134/80 (98) 100 08/18/19 21:04 65 18 50 08/18/19 21:00 57 30 134/79 (97) 100 08/18/19 20:02 58 08/18/19 20:00 50 08/18/19 20:00 Mechanical Ventilator Mechanical Ventilator Mechanical Ventilator 08/18/19 20:00 97.5 59 25 143/72 (95) 100 08/18/19 19:00 62 20 148/69 (95) 100 08/18/19 18:59 63 18 50 08/18/19 18:04 52 18 142/75 (97) 100 08/18/19 18:00 146/76 08/18/19 17:00 54 30 146/76 (99) 100 08/18/19 16:52 59 18 50 08/18/19 16:05 Mechanical Ventilator Mechanical Ventilator Mechanical Ventilator Intake and Output 08/18/19 08/19/19 19:00 07:00 Intake Total 1285 ml 705 ml Output Total 0 ml 1 ml Balance 1285 ml 704 ml Intake Free Water 100 ml 280 ml IV Total 455 ml 55 ml Tube Feeding 130 ml 370 ml Hemodialysis 600 ml Output Urine Total 0 ml 1 ml # Bowel Movements 3 2 Laboratory Tests 08/19/19 03:40: White Blood Count 6.3, Red Blood Count 3.46L, Hemoglobin 10.7L, Hematocrit 31.1L , Mean Corpuscular Volume 90, Mean Corpuscular Hemoglobin 31.0, Mean Corpuscular Hemoglobin Concent 34.4, Red Cell Distribution Width 18.2H, Platelet Count 319, Mean Platelet Volume 6.4L, Neutrophils (%) (Auto) 40.3L, Lymphocytes (%) (Auto) 49.7H, Monocytes (%) (Auto) 7.7, Eosinophils (%) (Auto) 0.7, Basophils (%) (Auto) 1.6, Sodium Level 143, Potassium Level 3.2L, Chloride Level 106, Carbon Dioxide Level 25, Anion Gap 12, Blood Urea Nitrogen 28H, Creatinine 3.6H, Estimat Glomerular Filtration Rate 12.2, Glucose Level 119H, Calcium Level 8.5, Phosphorus Level 2.9, Magnesium Level 1.5L, Total Bilirubin 0.5, Aspartate Amino Transf (AST/SGOT) 23, Alanine Aminotransferase (ALT/SGPT) 9L, Alkaline Phosphatase 149H, C-Reactive Protein, Quantitative 2.6H, Pro-B- Type Natriuretic Peptide > 78136P, Total Protein 5.2L, Albumin 1.1L, Globulin 4.1, Albumin/Globulin Ratio 0.3L Height (Feet): 5 Height (Inches): 4.00 Weight (Pounds): 126 Objective General Appearance: WD/WN, awake/moaning. orally intubated Neck: supple Cardiovascular: normal rate Respiratory/Chest: rhonchi - bilaterally Abdomen: normal bowel sounds, non tender, soft, no organomegaly Edema: no edema noted Arm (L), no edema noted Arm (R), no edema noted Leg (L), no edema noted Leg (R), no edema noted Pedal (L), no edema noted Pedal (R), no edema noted Generalized Neurologic: disoriented, aphasia Nate Beltran MD Aug 19, 2019 16:03
[2019-08-19] MEDS: Epoetin Alfa-EPBX(ESRD on dialysis)4000 units/ml vial SUBQ SCH (20:33)
[2019-08-19] MEDS: Dyna-Hex 2% Top Sol 2oz TOPIC SCH (20:33)
--- NOTE | 2019-08-19 22:09 | General Progress Note ---
Assessment/Plan Status: stable, not improved, unchanged, deteriorating Assessment/Plan: Assessment - Severe ulcerative esophagitis on endoscopy - on BID PPI - Resp failure --> now intubated - thrombocytopenia --> resolved - Renal failure --> now on HD, stablized - aspiration risk --> s/p PEG - anemia - bradycardia - Poor prognosis Recommendations - Continue TF - OK to restart anticoagulation from GI standpoint - monitor H&H - f/u esophageal biopsies Subjective Allergies: Coded Allergies: VANCOMYCIN (Unverified Allergy, Unknown, 08/02/19) Subjective Above noted d/w RN tolerating TF Objective Last 24 Hour Vital Signs Date Time Temp Pulse Resp B/P (MAP) Pulse Ox O2 Delivery O2 Flow Rate FiO2 08/19/19 21:00 66 24 146/66 (92) 100 66 08/19/19 20:52 66 18 40 08/19/19 20:00 Mechanical Ventilator Mechanical Ventilator 08/19/19 20:00 71 08/19/19 20:00 40 08/19/19 20:00 76 27 140/75 (96) 99 76 08/19/19 19:32 68 18 40 08/19/19 19:00 98.1 68 26 148/67 (94) 100 68 08/19/19 18:38 171/84 08/19/19 18:37 171/84 08/19/19 18:00 67 16 148/67 (94) 100 67 08/19/19 17:00 68 25 172/89 (116) 99 68 08/19/19 16:46 71 18 40 08/19/19 16:00 98.0 69 24 171/84 (113) 100 69 08/19/19 16:00 40 08/19/19 16:00 Mechanical Ventilator Mechanical Ventilator 08/19/19 16:00 69 08/19/19 15:00 64 23 144/64 (90) 100 64 08/19/19 14:41 64 18 40 08/19/19 14:00 63 23 158/83 (108) 100 63 08/19/19 13:00 64 26 151/65 (93) 100 64 08/19/19 12:47 82 18 40 08/19/19 12:31 155/115 08/19/19 12:00 40 08/19/19 12:00 Mechanical Ventilator Mechanical Ventilator 08/19/19 12:00 97.9 65 34 155/115 (128) 100 65 08/19/19 12:00 67 08/19/19 11:11 65 18 40 08/19/19 11:00 66 29 159/65 (96) 100 66 08/19/19 10:00 63 20 150/46 (80) 100 08/19/19 09:00 98.8 61 21 152/67 (95) 100 08/19/19 08:36 84 18 30 40 08/19/19 08:00 66 28 146/80 (102) 88 66 08/19/19 08:00 62 08/19/19 08:00 40 08/19/19 08:00 Mechanical Ventilator Mechanical Ventilator 08/19/19 07:27 40 08/19/19 07:00 64 25 147/71 (96) 99 08/19/19 06:54 61 18 50 08/19/19 06:00 152/73 08/19/19 06:00 68 28 152/73 (99) 100 08/19/19 05:02 61 18 50 08/19/19 05:00 97.6 63 31 152/73 (99) 99 08/19/19 04:30 67 20 156/76 (102) 100 08/19/19 04:00 63 29 171/88 (115) 99 08/19/19 04:00 50 08/19/19 04:00 63 29 171/88 (115) 99 08/19/19 04:00 Mechanical Ventilator Mechanical Ventilator Mechanical Ventilator 08/19/19 03:07 60 18 50 08/19/19 03:01 61 08/19/19 03:00 63 24 168/79 (108) 97 08/19/19 02:00 61 18 141/71 (94) 100 08/19/19 01:00 57 28 150/73 (98) 100 57 08/19/19 00:59 58 18 50 08/19/19 00:00 Mechanical Ventilator Mechanical Ventilator Mechanical Ventilator 08/19/19 00:00 97.6 57 20 144/69 (94) 100 08/19/19 00:00 144/69 08/19/19 00:00 50 08/18/19 23:06 55 08/18/19 23:00 62 18 170/72 (104) 100 08/18/19 22:57 65 18 50 Intake and Output 08/18/19 08/19/19 19:00 07:00 Intake Total 1285 ml 705 ml Output Total 0 ml 1 ml Balance 1285 ml 704 ml Intake Free Water 100 ml 280 ml IV Total 455 ml 55 ml Tube Feeding 130 ml 370 ml Hemodialysis 600 ml Output Urine Total 0 ml 1 ml # Bowel Movements 3 2 Laboratory Tests 08/19/19 03:40: White Blood Count 6.3, Red Blood Count 3.46L, Hemoglobin 10.7L, Hematocrit 31.1L , Mean Corpuscular Volume 90, Mean Corpuscular Hemoglobin 31.0, Mean Corpuscular Hemoglobin Concent 34.4, Red Cell Distribution Width 18.2H, Platelet Count 319, Mean Platelet Volume 6.4L, Neutrophils (%) (Auto) 40.3L, Lymphocytes (%) (Auto) 49.7H, Monocytes (%) (Auto) 7.7, Eosinophils (%) (Auto) 0.7, Basophils (%) (Auto) 1.6, Sodium Level 143, Potassium Level 3.2L, Chloride Level 106, Carbon Dioxide Level 25, Anion Gap 12, Blood Urea Nitrogen 28H, Creatinine 3.6H, Estimat Glomerular Filtration Rate 12.2, Glucose Level 119H, Calcium Level 8.5, Phosphorus Level 2.9, Magnesium Level 1.5L, Total Bilirubin 0.5, Aspartate Amino Transf (AST/SGOT) 23, Alanine Aminotransferase (ALT/SGPT) 9L, Alkaline Phosphatase 149H, C-Reactive Protein, Quantitative 2.6H, Pro-B- Type Natriuretic Peptide > 70532W, Total Protein 5.2L, Albumin 1.1L, Globulin 4.1, Albumin/Globulin Ratio 0.3L Height (Feet): 5 Height (Inches): 4.00 Weight (Pounds): 126 Objective Debilitated frail woman NCAT (+) ETT supple scattered ronchi RR abd soft ND NT, (+) GT no edema Cristy Elizondo MD Aug 19, 2019 22:09
[2019-08-20] VITALS (28 sets, daily range): BP systolic 99–177; BP diastolic 59–92
--- NOTE | 2019-08-20 00:44 | Progress Note ---
DATE: 08/19/2019 CARDIOLOGY PROGRESS NOTE SUBJECTIVE: The patient remains in the intensive care unit. Condition remains critical with guarded prognosis. The patient remains on ventilator support. Monitored rhythm is sinus with less frequent episodes of bradycardia. OBJECTIVE: VITAL SIGNS: Blood pressure 158/83, heart rate 63, and respiratory rate 23. LUNGS: Bilateral breath sounds. CARDIAC: Regular rhythm and rate. Normal S1 and S2. ABDOMEN: Soft. G-tube site intact. EXTREMITIES: Trace edema. LABORATORY DATA: Blood cultures positive for Hailee. White count 6.3 and hemoglobin 10.7. Sodium is 143, potassium 3.2, bicarbonate 25, BUN 28, creatinine 3.6, and magnesium 1.5. Pro-natriuretic peptide is over 35,000. TSH has improved to 4.9. IMPRESSION: 1. Fungemia. 2. Hypomagnesemia. 3. Hypothyroidism. 4. Sinus bradycardia. 5. Hypertensive heart disease. 6. Dysphagia with G-tube. 7. Respiratory failure. 8. End-stage renal disease. PLAN: 1. Antimicrobials. 2. Titrate antihypertensives. 3. Weaning efforts. 4. Adjust dose of thyroid replacement. 5. Magnesium as needed. 6. Avoid potassium in view of potential of bradycardia unless level less than or equal to 3. 7. Hemodialysis with ultrafiltration. Abel Stubbs M.D. DR: ARETHA JOB#: [id number] CC:
[2019-08-20] MEDS: Nitroglycerin 2% oint pkt TOPIC SCH ×4 (05:11→23:46)
[2019-08-20 06:46] LABS: EOSINOPHILS % (AUTO) 0.4 % (0.0-3.0); HEMATOCRIT 31.4 % (37.0-47.0); HEMOGLOBIN 10.5 G/DL (12.0-16.0); LYMPHOCYTES % (AUTO) 35.5 % (20.0-45.0); MEAN CORPUSCULAR VOLUME 92 FL (80-99); MONOCYTES % (AUTO) 5.2 % (1.0-10.0); NEUTROPHILS % (AUTO) 57.8 % (45.0-75.0); PLATELET COUNT 367 K/UL (150-450); RED BLOOD COUNT 3.42 M/UL (4.20-5.40); RED CELL DISTRIBUTION WIDTH 18.4 % (11.6-14.8); WHITE BLOOD COUNT 7.9 K/UL (4.8-10.8)
[2019-08-20 07:09] LABS: ALBUMIN 1.3 G/DL (3.4-5.0); ALBUMIN/GLOBULIN RATIO 0.3 (1.0-2.7); ALKALINE PHOSPHATASE 184 U/L (46-116); ANION GAP 10 mmol/L (5-15); ASPARTATE AMINO TRANSFERASE 18 U/L (15-37); BILIRUBIN,TOTAL 0.4 MG/DL (0.2-1.0); BLOOD UREA NITROGEN 35 mg/dL (7-18); CALCIUM 8.5 MG/DL (8.5-10.1); CARBON DIOXIDE 27 MMOL/L (21-32); CHLORIDE 105 MMOL/L (98-107); POTASSIUM 3.5 MMOL/L (3.5-5.1); SODIUM 142 MMOL/L (136-145)
[2019-08-20 08:06] LABS: ALANINE AMINOTRANSFERASE 13 U/L (12-78)
--- NOTE | 2019-08-20 09:17 | General Progress Note ---
Assessment/Plan Status: stable, not improved, unchanged, deteriorating Assessment/Plan: Assessment/Plan Status: stable, not improved, unchanged, deteriorating Assessment/Plan: Assessment - Severe ulcerative esophagitis on endoscopy - on BID PPI - Resp failure --> now intubated - thrombocytopenia --> resolved - Renal failure --> now on HD, stablized - aspiration risk --> s/p PEG - anemia - bradycardia - Poor prognosis Recommendations - Continue TF - OK to restart anticoagulation from GI standpoint - monitor H&H - f/u esophageal biopsies Subjective ROS Limited/Unobtainable: No Allergies: Coded Allergies: VANCOMYCIN (Unverified Allergy, Unknown, 08/02/19) Objective Last 24 Hour Vital Signs Date Time Temp Pulse Resp B/P (MAP) Pulse Ox O2 Delivery O2 Flow Rate FiO2 08/20/19 08:00 Mechanical Ventilator Mechanical Ventilator 08/20/19 08:00 40 08/20/19 08:00 60 24 155/74 (101) 85 60 08/20/19 07:02 56 18 40 08/20/19 07:00 61 23 149/63 (91) 100 61 08/20/19 06:00 61 17 145/68 (93) 100 61 08/20/19 05:31 65 18 40 08/20/19 05:11 145/68 08/20/19 05:00 68 22 145/68 (93) 100 68 08/20/19 05:00 40 08/20/19 04:20 166/84 08/20/19 04:00 97.9 64 19 166/84 (111) 100 64 08/20/19 04:00 Mechanical Ventilator Mechanical Ventilator 08/20/19 04:00 70 08/20/19 03:28 74 20 40 08/20/19 03:00 71 22 167/79 (108) 98 71 08/20/19 02:00 71 21 161/81 (107) 100 71 08/20/19 01:53 82 18 40 08/20/19 01:00 69 18 159/92 (114) 99 69 08/20/19 00:00 78 08/20/19 00:00 97.9 72 19 158/77 (104) 100 72 08/20/19 00:00 Mechanical Ventilator Mechanical Ventilator 08/20/19 00:00 40 08/19/19 23:43 153/74 08/19/19 23:00 78 24 153/74 (100) 99 78 08/19/19 22:52 86 20 40 08/19/19 22:00 73 25 164/68 (100) 99 73 08/19/19 21:00 66 24 146/66 (92) 100 66 08/19/19 20:52 66 18 40 08/19/19 20:00 Mechanical Ventilator Mechanical Ventilator 08/19/19 20:00 71 08/19/19 20:00 40 08/19/19 20:00 76 27 140/75 (96) 99 76 08/19/19 19:32 68 18 40 08/19/19 19:00 98.1 68 26 148/67 (94) 100 68 08/19/19 18:38 171/84 08/19/19 18:37 171/84 08/19/19 18:00 67 16 148/67 (94) 100 67 08/19/19 17:00 68 25 172/89 (116) 99 68 08/19/19 16:46 71 18 40 08/19/19 16:00 98.0 69 24 171/84 (113) 100 69 08/19/19 16:00 40 08/19/19 16:00 Mechanical Ventilator Mechanical Ventilator 08/19/19 16:00 69 08/19/19 15:00 64 23 144/64 (90) 100 64 08/19/19 14:41 64 18 40 08/19/19 14:00 63 23 158/83 (108) 100 63 08/19/19 13:00 64 26 151/65 (93) 100 64 08/19/19 12:47 82 18 40 08/19/19 12:31 155/115 08/19/19 12:00 40 08/19/19 12:00 Mechanical Ventilator Mechanical Ventilator 08/19/19 12:00 97.9 65 34 155/115 (128) 100 65 08/19/19 12:00 67 08/19/19 11:11 65 18 40 08/19/19 11:00 66 29 159/65 (96) 100 66 08/19/19 10:00 63 20 150/46 (80) 100 Intake and Output 08/19/19 08/20/19 19:00 07:00 Intake Total 1215 ml 615 ml Output Total 0 ml 100 ml Balance 1215 ml 515 ml Intake Free Water 280 ml 140 ml IV Total 455 ml 55 ml Tube Feeding 420 ml 420 ml Other 60 ml Output Urine Total 0 ml 100 ml # Voids 4 # Bowel Movements 4 1 Laboratory Tests 08/20/19 05:00: White Blood Count 7.9, Red Blood Count 3.42L, Hemoglobin 10.5L, Hematocrit 31.4L , Mean Corpuscular Volume 92, Mean Corpuscular Hemoglobin 30.8, Mean Corpuscular Hemoglobin Concent 33.5, Red Cell Distribution Width 18.4H, Platelet Count 367, Mean Platelet Volume 6.8, Neutrophils (%) (Auto) 57.8, Lymphocytes (%) (Auto) 35.5, Monocytes (%) (Auto) 5.2, Eosinophils (%) (Auto) 0.4, Basophils (%) (Auto) 1.0, Prothrombin Time 11.0, Prothromb Time International Ratio 1.0, Activated Partial Thromboplast Time 30, Sodium Level 142, Potassium Level 3.5, Chloride Level 105, Carbon Dioxide Level 27, Anion Gap 10, Blood Urea Nitrogen 35H, Creatinine 4.0H, Estimat Glomerular Filtration Rate 10.8, Glucose Level 145H, Calcium Level 8.5, Phosphorus Level 3.0, Magnesium Level 2.2, Total Bilirubin 0.4, Aspartate Amino Transf (AST/SGOT) 18, Alanine Aminotransferase (ALT/SGPT) 13, Alkaline Phosphatase 184H, C-Reactive Protein, Quantitative 2.7H, Pro-B-Type Natriuretic Peptide > 3500H, Total Protein 5.4L, Albumin 1.3L, Globulin 4.1, Albumin/Globulin Ratio 0.3L Height (Feet): 5 Height (Inches): 4.00 Weight (Pounds): 126 General Appearance: no apparent distress EENT: normal ENT inspection Neck: supple Cardiovascular: normal rate Respiratory/Chest: decreased breath sounds Abdomen: normal bowel sounds, non tender, soft Extremities: non-tender Kenny Rudolph MD Aug 20, 2019 09:17
[2019-08-20] MEDS: Meropenem 500 MG in NS 55 ML IVPB SCH ×2 (09:46→20:46)
--- NOTE | 2019-08-20 10:10 | Diagnostic Imaging Report ---
EXAM: XR Chest, 1 View CLINICAL HISTORY: F/U TECHNIQUE: Frontal view of the chest. COMPARISON: 08/19/19. FINDINGS: Lungs: There is been development of mild bilateral perihilar and lower lobe mixed interstitial and alveolar infiltrates likely representing pulmonary edema. Pneumonia cannot be excluded. Pleural space: There is unchanged small left pleural effusion. No pneumothorax. Heart: Unremarkable. No cardiomegaly. Mediastinum: Unremarkable. Bones/joints: Unremarkable. Tubes, lines and devices: There is an endotracheal tube in unchanged position. Upper abdomen: There is unchanged pneumoperitoneum beneath the right hemidiaphragm. IMPRESSION: Developing mild bilateral perihilar and lower lobe alveolar infiltrates likely representing pulmonary edema however superimposed pneumonia cannot be excluded.
--- NOTE | 2019-08-20 11:43 | General Progress Note ---
Assessment/Plan Problem List: (1) Failure to thrive (0-17) ICD Codes: R62.51 - Failure to thrive (0-17) SNOMED: 086759433 (2) Hypertensive kidney disease ICD Codes: I12.9 - Hypertensive chronic kidney disease with stage 1 through stage 4 chronic kidney disease, or unspecified chronic kidney disease SNOMED: 94716329 (3) Pneumonia ICD Codes: J18.9 - Pneumonia, unspecified organism SNOMED: 113948875 Qualifiers: Qualified Codes: J18.9 - Pneumonia, unspecified organism (4) ESRD (end stage renal disease) ICD Codes: N18.6 - End stage renal disease SNOMED: 70889957 (5) Septic arthritis ICD Codes: M00.9 - Pyogenic arthritis, unspecified SNOMED: 445900397 (6) Thrombocytopenia ICD Codes: D69.6 - Thrombocytopenia, unspecified SNOMED: 669737178 (7) Hypotension ICD Codes: I95.9 - Hypotension, unspecified SNOMED: 62663270 Qualifiers: Qualified Codes: I95.3 - Hypotension of hemodialysis (8) Malnutrition ICD Codes: E46 - Unspecified protein-calorie malnutrition SNOMED: 09182068 Status: stable, not improved, unchanged, deteriorating Assessment/Plan: cont resp care chest pt/suctioning resp rx wean vent per pulm monitor plts iv PPI iv abx HD bp rx critical and guarded tube feeds per gi Subjective ROS Limited/Unobtainable: No Constitutional: Reports: malaise, weakness HEENT: Reports: no symptoms Cardiovascular: Reports: no symptoms Respiratory: Reports: shortness of breath, sputum Gastrointestinal/Abdominal: Reports: difficulty swallowing Genitourinary: Reports: no symptoms Neurologic/Psychiatric: Reports: anxiety Endocrine: Reports: no symptoms Hematologic/Lymphatic: Reports: anemia Allergies: Coded Allergies: VANCOMYCIN (Unverified Allergy, Unknown, 08/02/19) All Systems: reviewed and negative except above Subjective no events. on the vent. remains alert and awake. no fevers. alert. minimal congestion/secretions. Objective Last 24 Hour Vital Signs Date Time Temp Pulse Resp B/P (MAP) Pulse Ox O2 Delivery O2 Flow Rate FiO2 08/20/19 11:00 80 25 99/62 (74) 93 62 08/20/19 10:00 98.5 63 19 170/83 (112) 100 63 08/20/19 09:10 78 22 40 08/20/19 09:00 62 26 171/86 (114) 100 62 08/20/19 08:00 Mechanical Ventilator Mechanical Ventilator 08/20/19 08:00 40 08/20/19 08:00 60 24 155/74 (101) 85 60 08/20/19 08:00 60 08/20/19 07:02 56 18 40 08/20/19 07:00 61 23 149/63 (91) 100 61 08/20/19 06:00 61 17 145/68 (93) 100 61 08/20/19 05:31 65 18 40 08/20/19 05:11 145/68 08/20/19 05:00 68 22 145/68 (93) 100 68 08/20/19 05:00 40 08/20/19 04:20 166/84 08/20/19 04:00 97.9 64 19 166/84 (111) 100 64 08/20/19 04:00 Mechanical Ventilator Mechanical Ventilator 08/20/19 04:00 70 08/20/19 03:28 74 20 40 08/20/19 03:00 71 22 167/79 (108) 98 71 08/20/19 02:00 71 21 161/81 (107) 100 71 08/20/19 01:53 82 18 40 08/20/19 01:00 69 18 159/92 (114) 99 69 08/20/19 00:00 78 08/20/19 00:00 97.9 72 19 158/77 (104) 100 72 08/20/19 00:00 Mechanical Ventilator Mechanical Ventilator 08/20/19 00:00 40 08/19/19 23:43 153/74 08/19/19 23:00 78 24 153/74 (100) 99 78 08/19/19 22:52 86 20 40 08/19/19 22:00 73 25 164/68 (100) 99 73 08/19/19 21:00 66 24 146/66 (92) 100 66 08/19/19 20:52 66 18 40 08/19/19 20:00 Mechanical Ventilator Mechanical Ventilator 08/19/19 20:00 71 08/19/19 20:00 40 08/19/19 20:00 76 27 140/75 (96) 99 76 08/19/19 19:32 68 18 40 08/19/19 19:00 98.1 68 26 148/67 (94) 100 68 08/19/19 18:38 171/84 08/19/19 18:37 171/84 08/19/19 18:00 67 16 148/67 (94) 100 67 08/19/19 17:00 68 25 172/89 (116) 99 68 08/19/19 16:46 71 18 40 08/19/19 16:00 98.0 69 24 171/84 (113) 100 69 08/19/19 16:00 40 08/19/19 16:00 Mechanical Ventilator Mechanical Ventilator 08/19/19 16:00 69 08/19/19 15:00 64 23 144/64 (90) 100 64 08/19/19 14:41 64 18 40 08/19/19 14:00 63 23 158/83 (108) 100 63 08/19/19 13:00 64 26 151/65 (93) 100 64 08/19/19 12:47 82 18 40 08/19/19 12:31 155/115 08/19/19 12:00 40 08/19/19 12:00 Mechanical Ventilator Mechanical Ventilator 08/19/19 12:00 97.9 65 34 155/115 (128) 100 65 08/19/19 12:00 67 Intake and Output 08/19/19 08/20/19 19:00 07:00 Intake Total 1215 ml 615 ml Output Total 0 ml 100 ml Balance 1215 ml 515 ml Intake Free Water 280 ml 140 ml IV Total 455 ml 55 ml Tube Feeding 420 ml 420 ml Other 60 ml Output Urine Total 0 ml 100 ml # Voids 4 # Bowel Movements 4 1 Laboratory Tests 08/20/19 05:00: White Blood Count 7.9, Red Blood Count 3.42L, Hemoglobin 10.5L, Hematocrit 31.4L , Mean Corpuscular Volume 92, Mean Corpuscular Hemoglobin 30.8, Mean Corpuscular Hemoglobin Concent 33.5, Red Cell Distribution Width 18.4H, Platelet Count 367, Mean Platelet Volume 6.8, Neutrophils (%) (Auto) 57.8, Lymphocytes (%) (Auto) 35.5, Monocytes (%) (Auto) 5.2, Eosinophils (%) (Auto) 0.4, Basophils (%) (Auto) 1.0, Prothrombin Time 11.0, Prothromb Time International Ratio 1.0, Activated Partial Thromboplast Time 30, Sodium Level 142, Potassium Level 3.5, Chloride Level 105, Carbon Dioxide Level 27, Anion Gap 10, Blood Urea Nitrogen 35H, Creatinine 4.0H, Estimat Glomerular Filtration Rate 10.8, Glucose Level 145H, Calcium Level 8.5, Phosphorus Level 3.0, Magnesium Level 2.2, Total Bilirubin 0.4, Aspartate Amino Transf (AST/SGOT) 18, Alanine Aminotransferase (ALT/SGPT) 13, Alkaline Phosphatase 184H, C-Reactive Protein, Quantitative 2.7H, Pro-B-Type Natriuretic Peptide > 3500H, Total Protein 5.4L, Albumin 1.3L, Globulin 4.1, Albumin/Globulin Ratio 0.3L Height (Feet): 5 Height (Inches): 4.00 Weight (Pounds): 95 Objective General Appearance: WD/WN, awake/moaning. orally intubated Neck: supple Cardiovascular: normal rate Respiratory/Chest: rhonchi - bilaterally Abdomen: normal bowel sounds, non tender, soft, no organomegaly Edema: no edema noted Arm (L), no edema noted Arm (R), no edema noted Leg (L), no edema noted Leg (R), no edema noted Pedal (L), no edema noted Pedal (R), no edema noted Generalized Neurologic: disoriented, aphasia Nate Beltran MD Aug 20, 2019 11:43
--- NOTE | 2019-08-20 13:16 | Nephrology Progress Note ---
Assessment/Plan Problem List: (1) ESRD (end stage renal disease) on dialysis (2) Malnutrition (3) Anemia in CKD (chronic kidney disease) (4) Hypotension (5) Thrombocytopenia (6) Sepsis Assessment: klebsiella in blood Assessment -Early sepsis with shock. -Healthcare-associated pneumonia. -Severe protein-calorie malnutrition. -Thrombocytopenia. - End-stage renal disease. - History of hypertension. - Bradycardia. - HypoThyroid Plan Seen during hemodialysis today Blood pressure fluctuating Magnesium and potassium supplement intravenously as needed Patient underwent PEG placement August 16 patient is intubated on ventilator Discussed with RN Aim to wean from ventilator or consider tracheostomy Permacath was removed on August 12 Dialysis 08/11 Transfusion as needed Patient had hematemesis meds IV as possible Surveillance blood cultures tomorrow Plan to put the permacath back in on Thursday if cultures are negative keep BP and BS in check Inflammatory markers per orders Subjective ROS Limited/Unobtainable: Yes Objective Objective Last 24 Hour Vital Signs Date Time Temp Pulse Resp B/P (MAP) Pulse Ox O2 Delivery O2 Flow Rate FiO2 08/20/19 13:05 100 18 40 08/20/19 13:00 62 33 130/61 (84) 100 62 08/20/19 12:51 114/69 08/20/19 12:30 71 30 101/61 (74) 99 71 08/20/19 12:15 70 28 99/59 (72) 98 70 08/20/19 12:00 98.5 70 29 110/70 (83) 98 70 08/20/19 12:00 Mechanical Ventilator Mechanical Ventilator 08/20/19 12:00 40 08/20/19 11:10 95 20 40 08/20/19 11:00 80 25 99/62 (74) 93 62 08/20/19 10:00 98.5 63 19 170/83 (112) 100 63 08/20/19 09:10 78 22 40 08/20/19 09:00 62 26 171/86 (114) 100 62 08/20/19 08:00 Mechanical Ventilator Mechanical Ventilator 08/20/19 08:00 40 08/20/19 08:00 60 24 155/74 (101) 85 60 08/20/19 08:00 60 08/20/19 07:02 56 18 40 08/20/19 07:00 61 23 149/63 (91) 100 61 08/20/19 06:00 61 17 145/68 (93) 100 61 08/20/19 05:31 65 18 40 08/20/19 05:11 145/68 08/20/19 05:00 68 22 145/68 (93) 100 68 08/20/19 05:00 40 08/20/19 04:20 166/84 08/20/19 04:00 97.9 64 19 166/84 (111) 100 64 08/20/19 04:00 Mechanical Ventilator Mechanical Ventilator 08/20/19 04:00 70 08/20/19 03:28 74 20 40 08/20/19 03:00 71 22 167/79 (108) 98 71 08/20/19 02:00 71 21 161/81 (107) 100 71 08/20/19 01:53 82 18 40 08/20/19 01:00 69 18 159/92 (114) 99 69 08/20/19 00:00 78 08/20/19 00:00 97.9 72 19 158/77 (104) 100 72 08/20/19 00:00 Mechanical Ventilator Mechanical Ventilator 08/20/19 00:00 40 08/19/19 23:43 153/74 08/19/19 23:00 78 24 153/74 (100) 99 78 08/19/19 22:52 86 20 40 08/19/19 22:00 73 25 164/68 (100) 99 73 08/19/19 21:00 66 24 146/66 (92) 100 66 08/19/19 20:52 66 18 40 08/19/19 20:00 Mechanical Ventilator Mechanical Ventilator 08/19/19 20:00 71 08/19/19 20:00 40 08/19/19 20:00 76 27 140/75 (96) 99 76 08/19/19 19:32 68 18 40 08/19/19 19:00 98.1 68 26 148/67 (94) 100 68 08/19/19 18:38 171/84 08/19/19 18:37 171/84 08/19/19 18:00 67 16 148/67 (94) 100 67 08/19/19 17:00 68 25 172/89 (116) 99 68 08/19/19 16:46 71 18 40 08/19/19 16:00 98.0 69 24 171/84 (113) 100 69 08/19/19 16:00 40 08/19/19 16:00 Mechanical Ventilator Mechanical Ventilator 08/19/19 16:00 69 08/19/19 15:00 64 23 144/64 (90) 100 64 08/19/19 14:41 64 18 40 08/19/19 14:00 63 23 158/83 (108) 100 63 Intake and Output 08/19/19 08/20/19 19:00 07:00 Intake Total 1215 ml 615 ml Output Total 0 ml 100 ml Balance 1215 ml 515 ml Intake Free Water 280 ml 140 ml IV Total 455 ml 55 ml Tube Feeding 420 ml 420 ml Other 60 ml Output Urine Total 0 ml 100 ml # Voids 4 # Bowel Movements 4 1 Laboratory Tests 08/20/19 05:00: White Blood Count 7.9, Red Blood Count 3.42L, Hemoglobin 10.5L, Hematocrit 31.4L , Mean Corpuscular Volume 92, Mean Corpuscular Hemoglobin 30.8, Mean Corpuscular Hemoglobin Concent 33.5, Red Cell Distribution Width 18.4H, Platelet Count 367, Mean Platelet Volume 6.8, Neutrophils (%) (Auto) 57.8, Lymphocytes (%) (Auto) 35.5, Monocytes (%) (Auto) 5.2, Eosinophils (%) (Auto) 0.4, Basophils (%) (Auto) 1.0, Prothrombin Time 11.0, Prothromb Time International Ratio 1.0, Activated Partial Thromboplast Time 30, Sodium Level 142, Potassium Level 3.5, Chloride Level 105, Carbon Dioxide Level 27, Anion Gap 10, Blood Urea Nitrogen 35H, Creatinine 4.0H, Estimat Glomerular Filtration Rate 10.8, Glucose Level 145H, Calcium Level 8.5, Phosphorus Level 3.0, Magnesium Level 2.2, Total Bilirubin 0.4, Aspartate Amino Transf (AST/SGOT) 18, Alanine Aminotransferase (ALT/SGPT) 13, Alkaline Phosphatase 184H, C-Reactive Protein, Quantitative 2.7H, Pro-B-Type Natriuretic Peptide > 3500H, Total Protein 5.4L, Albumin 1.3L, Globulin 4.1, Albumin/Globulin Ratio 0.3L Height (Feet): 5 Height (Inches): 4.00 Weight (Pounds): 95 General Appearance: no apparent distress EENT: other - Remains intubated on ventilator Respiratory/Chest: decreased breath sounds Abdomen: soft Objective no change William Blackwood MD Aug 20, 2019 13:16
[2019-08-20] MEDS ORDERED: NS 275ml ONE (13:40)
[2019-08-20] MEDS ORDERED: Tubing IV Secondary IV ONE (13:40)
[2019-08-20] MEDS ORDERED: Sterile Water Irrig 1000ml IRRIG ONE (13:40)
--- NOTE | 2019-08-20 16:07 | Pulmonolgy Critical Care Note ---
Critical Care - Asmt/Plan Assessment/Plan: Pulmonary CCM Progress Note Assessment/Plan respiratory failure hemoptysis hypoxemia chronic renal failure toxic met encephalopathy severe protein calorie malnutrition cachexia left lung whiteout/collapse, improved with intubation s/p intubation PLAN care noted vent support - wean as tolerated has a 7 ETT would need to d/w family gi noted antibiotics monitor imaging for change elevated head watch fluid status nutrition as able off load ROM ICU care and management critical at present requires ICU management feeds as able medications/laboratory data/nursing notes/ICU care reviewed in detail note reviewed and edited care discussed with RN and RT ICU time spent 40 minutes coordinating care Critical Care - Subjective Interval Events: care noted on vent left lung reexpanded repeat cxr pending d/w RN and renal likely will not wean poor LOC remains critical ROS Limited/Unobtainable: Yes Condition: critical EKG Rhythm: Sinus Rhythm Residuals: minimal Tube Feeding Tolerated: yes Labs Noted Objective: Vital signs noted Intubated WDWN NAD BS equal bilaterally [id number] without MRG NABS nontender no HSM no CCE contractures poorly responsive nonfocal reviewed and edited Micro: Imaging noted Microbiology Date/Time Source Procedure Growth Status 08/14/19 05:10 Blood Blood Culture - Preliminary NO GROWTH AFTER 48 HOURS Resulted 08/14/19 04:55 Blood Blood Culture - Preliminary NO GROWTH AFTER 48 HOURS Resulted Critical Care - Objective Last 24 Hour Vital Signs Date Time Temp Pulse Resp B/P (MAP) Pulse Ox O2 Delivery O2 Flow Rate FiO2 08/20/19 15:10 100 28 40 08/20/19 15:00 56 22 152/65 (94) 100 56 08/20/19 14:30 58 31 144/72 (96) 100 58 08/20/19 14:00 58 31 138/59 (85) 100 58 08/20/19 13:05 100 18 40 08/20/19 13:00 62 33 130/61 (84) 100 62 08/20/19 12:51 114/69 08/20/19 12:30 71 30 101/61 (74) 99 71 08/20/19 12:15 70 28 99/59 (72) 98 70 08/20/19 12:00 82 08/20/19 12:00 98.5 70 29 110/70 (83) 98 70 08/20/19 12:00 Mechanical Ventilator Mechanical Ventilator 08/20/19 12:00 40 08/20/19 11:10 95 20 40 08/20/19 11:00 80 25 99/62 (74) 93 62 08/20/19 10:00 98.5 63 19 170/83 (112) 100 63 08/20/19 09:10 78 22 40 08/20/19 09:00 62 26 171/86 (114) 100 62 08/20/19 08:00 Mechanical Ventilator Mechanical Ventilator 08/20/19 08:00 40 08/20/19 08:00 60 24 155/74 (101) 85 60 08/20/19 08:00 60 08/20/19 07:02 56 18 40 08/20/19 07:00 61 23 149/63 (91) 100 61 08/20/19 06:00 61 17 145/68 (93) 100 61 08/20/19 05:31 65 18 40 08/20/19 05:11 145/68 08/20/19 05:00 68 22 145/68 (93) 100 68 08/20/19 05:00 40 08/20/19 04:20 166/84 08/20/19 04:00 97.9 64 19 166/84 (111) 100 64 08/20/19 04:00 Mechanical Ventilator Mechanical Ventilator 08/20/19 04:00 70 08/20/19 03:28 74 20 40 08/20/19 03:00 71 22 167/79 (108) 98 71 08/20/19 02:00 71 21 161/81 (107) 100 71 08/20/19 01:53 82 18 40 08/20/19 01:00 69 18 159/92 (114) 99 69 08/20/19 00:00 78 08/20/19 00:00 97.9 72 19 158/77 (104) 100 72 08/20/19 00:00 Mechanical Ventilator Mechanical Ventilator 08/20/19 00:00 40 08/19/19 23:43 153/74 08/19/19 23:00 78 24 153/74 (100) 99 78 08/19/19 22:52 86 20 40 08/19/19 22:00 73 25 164/68 (100) 99 73 08/19/19 21:00 66 24 146/66 (92) 100 66 08/19/19 20:52 66 18 40 3/6/20 20:00 Mechanical Ventilator Mechanical Ventilator 08/19/19 20:00 71 08/19/19 20:00 40 08/19/19 20:00 76 27 140/75 (96) 99 76 08/19/19 19:32 68 18 40 08/19/19 19:00 98.1 68 26 148/67 (94) 100 68 08/19/19 18:38 171/84 08/19/19 18:37 171/84 08/19/19 18:00 67 16 148/67 (94) 100 67 08/19/19 17:00 68 25 172/89 (116) 99 68 08/19/19 16:46 71 18 40 Accucheck: 103 Critical Care - Subjective ROS Limited/Unobtainable: No FI02: 40 Vent Support Breath Rate: 18 Vent Support Mode: AC Sputum Amount: Scant PEEP: 5.0 PIP: 20 Tube Feeding Amount: 35 I&O: Intake and Output 08/19/19 08/20/19 19:00 07:00 Intake Total 1215 ml 615 ml Output Total 0 ml 100 ml Balance 1215 ml 515 ml Intake Free Water 280 ml 140 ml IV Total 455 ml 55 ml Tube Feeding 420 ml 420 ml Other 60 ml Output Urine Total 0 ml 100 ml # Voids 4 # Bowel Movements 4 1 ET-Tube: 7.0 ET Position: 19 Abel Graham MD Aug 20, 2019 16:07
[2019-08-20] MEDS: Dyna-Hex 2% Top Sol 2oz TOPIC SCH (20:46)
--- NOTE | 2019-08-20 22:10 | Surgery Progress Note ---
Surgery Progress Note Subjective Procedure Performed Right Femoral Temporary Hemodialysis catheter Insertion Additional Comments did not tolerate weaning no n/v/f/c Objective Last 24 Hour Vital Signs Date Time Temp Pulse Resp B/P (MAP) Pulse Ox O2 Delivery O2 Flow Rate FiO2 08/20/19 21:42 58 18 40 08/20/19 21:00 57 21 163/66 (98) 100 57 08/20/19 20:00 40 08/20/19 20:00 97.6 58 24 156/65 (95) 100 58 08/20/19 20:00 Mechanical Ventilator Mechanical Ventilator 08/20/19 19:31 62 21 40 08/20/19 19:00 70 30 136/65 (88) 100 70 08/20/19 18:14 177/73 08/20/19 18:14 177/73 08/20/19 18:00 59 23 177/73 (107) 100 59 08/20/19 17:30 60 23 161/76 (104) 100 60 08/20/19 17:11 99 20 40 08/20/19 17:00 59 23 160/63 (95) 99 59 08/20/19 16:00 58 08/20/19 16:00 Mechanical Ventilator Mechanical Ventilator 08/20/19 16:00 98.2 62 26 154/65 (94) 100 62 08/20/19 16:00 40 08/20/19 15:10 100 28 40 08/20/19 15:00 56 22 152/65 (94) 100 56 08/20/19 14:30 58 31 144/72 (96) 100 58 08/20/19 14:00 58 31 138/59 (85) 100 58 08/20/19 13:05 100 18 40 08/20/19 13:00 62 33 130/61 (84) 100 62 08/20/19 12:51 114/69 08/20/19 12:30 71 30 101/61 (74) 99 71 08/20/19 12:15 70 28 99/59 (72) 98 70 08/20/19 12:00 82 08/20/19 12:00 98.5 70 29 110/70 (83) 98 70 08/20/19 12:00 Mechanical Ventilator Mechanical Ventilator 08/20/19 12:00 40 08/20/19 11:10 95 20 40 08/20/19 11:00 80 25 99/62 (74) 93 62 08/20/19 10:00 98.5 63 19 170/83 (112) 100 63 08/20/19 09:10 78 22 40 08/20/19 09:00 62 26 171/86 (114) 100 62 08/20/19 08:00 Mechanical Ventilator Mechanical Ventilator 08/20/19 08:00 40 08/20/19 08:00 60 24 155/74 (101) 85 60 08/20/19 08:00 60 08/20/19 07:02 56 18 40 08/20/19 07:00 61 23 149/63 (91) 100 61 08/20/19 06:00 61 17 145/68 (93) 100 61 08/20/19 05:31 65 18 40 08/20/19 05:11 145/68 08/20/19 05:00 68 22 145/68 (93) 100 68 08/20/19 05:00 40 08/20/19 04:20 166/84 08/20/19 04:00 97.9 64 19 166/84 (111) 100 64 08/20/19 04:00 Mechanical Ventilator Mechanical Ventilator 08/20/19 04:00 70 08/20/19 03:28 74 20 40 08/20/19 03:00 71 22 167/79 (108) 98 71 08/20/19 02:00 71 21 161/81 (107) 100 71 08/20/19 01:53 82 18 40 08/20/19 01:00 69 18 159/92 (114) 99 69 08/20/19 00:00 78 08/20/19 00:00 97.9 72 19 158/77 (104) 100 72 08/20/19 00:00 Mechanical Ventilator Mechanical Ventilator 08/20/19 00:00 40 08/19/19 23:43 153/74 08/19/19 23:00 78 24 153/74 (100) 99 78 08/19/19 22:52 86 20 40 I&O Intake and Output 08/19/19 08/20/19 19:00 07:00 Intake Total 1215 ml 615 ml Output Total 0 ml 100 ml Balance 1215 ml 515 ml Intake Free Water 280 ml 140 ml IV Total 455 ml 55 ml Tube Feeding 420 ml 420 ml Other 60 ml Output Urine Total 0 ml 100 ml # Voids 4 # Bowel Movements 4 1 Dressing: other Wound: other Drains: other Cardiovascular: RSR Respiratory: decreased breath sounds Abdomen: soft, present bowel sounds Extremities: no cyanosis Laboratory Tests Test 08/20/19 05:00 White Blood Count 7.9 K/UL (4.8-10.8) Red Blood Count 3.42 M/UL (4.20-5.40) L Hemoglobin 10.5 G/DL (12.0-16.0) L Hematocrit 31.4 % (37.0-47.0) L Mean Corpuscular Volume 92 FL (80-99) Mean Corpuscular Hemoglobin 30.8 PG (27.0-31.0) Mean Corpuscular Hemoglobin Concent 33.5 G/DL (32.0-36.0) Red Cell Distribution Width 18.4 % (11.6-14.8) H Platelet Count 367 K/UL (150-450) Mean Platelet Volume 6.8 FL (6.5-10.1) Neutrophils (%) (Auto) 57.8 % (45.0-75.0) Lymphocytes (%) (Auto) 35.5 % (20.0-45.0) Monocytes (%) (Auto) 5.2 % (1.0-10.0) Eosinophils (%) (Auto) 0.4 % (0.0-3.0) Basophils (%) (Auto) 1.0 % (0.0-2.0) Prothrombin Time 11.0 SEC (9.30-11.50) Prothromb Time International Ratio 1.0 (0.9-1.1) Activated Partial Thromboplast Time 30 SEC (23-33) Sodium Level 142 MMOL/L (136-145) Potassium Level 3.5 MMOL/L (3.5-5.1) Chloride Level 105 MMOL/L (98-107) Carbon Dioxide Level 27 MMOL/L (21-32) Anion Gap 10 mmol/L (5-15) Blood Urea Nitrogen 35 mg/dL (7-18) H Creatinine 4.0 MG/DL (0.55-1.30) H Estimat Glomerular Filtration Rate 10.8 mL/min (>60) Glucose Level 145 MG/DL (74-106) H Calcium Level 8.5 MG/DL (8.5-10.1) Phosphorus Level 3.0 MG/DL (2.5-4.9) Magnesium Level 2.2 MG/DL (1.8-2.4) Total Bilirubin 0.4 MG/DL (0.2-1.0) Aspartate Amino Transf (AST/SGOT) 18 U/L (15-37) Alanine Aminotransferase (ALT/SGPT) 13 U/L (12-78) Alkaline Phosphatase 184 U/L (46-116) H C-Reactive Protein, Quantitative 2.7 mg/dL (0.00-0.90) H Pro-B-Type Natriuretic Peptide > 3500 pg/mL (0-125) H Total Protein 5.4 G/DL (6.4-8.2) L Albumin 1.3 G/DL (3.4-5.0) L Globulin 4.1 g/dL Albumin/Globulin Ratio 0.3 (1.0-2.7) L Assessment Post-op Diagnosis same Plan Problems: (1) Malnutrition Assessment & Plan: DAILY ESTIMATED NEEDS: Needs based on ESRD+ HD, underweight, wound/ 39.5kg 35-40 kcals/kg 8591-3747 total kcals 1.25-1.8 g protein/kg 49-71 g total protein 20-22 mL/kg 790-869 total fluid mLs NUTRITION DIAGNOSIS: * Increased kcal and protein needs r/t underweight status, HD needs, wuond healing as evidenced by pt is underweight per guidelines, ESRD, on HD, admitted non-blanching erythema wounds @ BL heels and sacrum * Swallowing difficulty R/T dysphagia as evidenced by ANGLEDOZER OPERATOR recommends temporary nonoral feeding at this time, s/p NGT insertion, on NGT feeding-> now s/p self removal, NPO. CURRENT TF:NPO PO DIET RECOMMENDATIONS: WHEN SAFE FOR ORAL DIET -> renal/ texture per ANGLEDOZER OPERATOR ENTERAL NUTRITION RECOMMENDATIONS: W/ GI access: Nepro @ 35ml/hr x 22 hrs to provide 770ml, 1386kcal, 62g prot, 560ml free water * W/ GI access, resume TF on Nepro * Initiate Nepro @ 15ml/hr x 6 hrs, advance 10ml q 4-6 hrs as tolerated to goal rate. * Hold 1 hour before and after Synthroid med * HOB over 30 degrees/ water flush per MD. ADDITIONAL RECOMMENDATIONS: 1) Calibrated bed scale wt for accurate CBW -> daily wt monitoring Per HD record: dry wt on 07/30=39.5kg (87lbs) 2) Wound care: (W/ GI access) add Nephorivte x 1 + Balta BID 3) Monitor NPO status: without GI access at this time, s/p pulling out NGT 4) Monitor for hypoglycemia while NPO 5) Monitor for continuity of HD (2) Septic arthritis Assessment & Plan: Pt presented on admission with generalized scaly rash . pt noted to be restless and scratching at skin. Bleeding from oral mucosa noted. Joint deformity noted to R shoulder. Surgical incision approximated with 11 sutures. Erythema but no exudate,or elevation in skin temp at site of incision. Historical incision R hip that is tunneled.Small amt seropurulent exudate noted. Periwound is erythematous,but no elevation in skin temp noted. No odor noted. Non-blanching erythema noted to sacrum. Perianal area is erythematous and excoriated. L heel is boggy with non-blanching erythema. R heel is soft with non-blanching erythema. No evidence of skin breakdown to all other bony prominences. Tx.plan: Cover R shoulder with Drsg and change daily and prn. Cleanse R hip wound with Saline. Apply Therahoney.Apply Cavilon Skin Barrier periwound. Cover with Optifoam drsg. Change every 3 days and prn. Apply Moisture Barrier Paste to perianal area and buttocks. Cover Sacrum with Optifoam drsg. Change every 3 days and prn. Apply Cavilon Skin Barrier to both heels. Cover each heel with Optifoam drsg. Change every 7 days and prn. APM/ELVIA Mattress overlay. Reposition at least every 2hours or as tolerated. Off-load heels with pillow. HD cath necessary HD as renal likely will need intubation (3) Wound, open, hip or thigh with complication Assessment & Plan: slow healing will need nutritional optimization difficult ng tube peg when stable sutures removed from right shoulder comfortable wean vent may need trach (4) Abscess of right hip (5) possible septic arthritis Additional Comments possible trach as does not seem to be able to wean Camilo James Aug 20, 2019 22:10
--- NOTE | 2019-08-20 23:00 | Progress Note ---
DATE: 08/20/2019 CARDIOLOGY PROGRESS NOTE SUBJECTIVE: The patient remains on ventilator support. Awake and alert. Minimal secretions noted. Blood pressure quite labile. Heart rate more stable. Weaning efforts ongoing. PHYSICAL EXAMINATION: VITAL SIGNS: Blood pressure 99/62 to 170/83, heart rate 66 to 80, respiratory rate 19 to 25. Afebrile. LUNGS: Diminished bilateral breath sounds. Few rhonchi. CARDIAC: Regular rhythm and rate. Normal S1, and S2. 1/6 systolic murmur at apex. ABDOMEN: Soft, nontender. G-tube intact. EXTREMITIES: No edema. LABORATORY DATA: White count 7.9, hemoglobin 10.5. Sodium 142, potassium 3.5, bicarb 27, BUN 35, creatinine 4, magnesium 2.2, albumin 1.3. White count 7.9, hemoglobin 10.5. INR 1. Chest x-ray reveals mild perihilar and lower lobe infiltrates representing edema versus pneumonia. IMPRESSION: 1. Respiratory failure. 2. Healthcare-associated pneumonia. 3. Acute on chronic diastolic congestive heart failure. 4. End-stage renal disease. 5. Sinus node disease. 6. Hypothyroidism improved with the thyroid supplement intravenously. 7. Dysphagia status post G-tube. 8. Severe protein-calorie malnutrition. 9. Hypertensive heart disease with labile blood pressure. PLAN: 1. Continue thyroid replacement. Dose has been decreased. 2. Weaning efforts. 3. Ventilator support in the interim. 4. Hemodialysis with ultrafiltration for volume management. 5. No indication for pacemaker. 6. Titrate anti-failure and antihypertensive medications based on clinical parameters. Abel Stubbs M.D. : REBECCA JOB#: [id number] CC:
[2019-08-21] VITALS (24 sets, daily range): BP systolic 123–165; BP diastolic 62–122
[2019-08-21] MEDS: Nitroglycerin 2% oint pkt TOPIC SCH ×3 (05:35→18:35)
[2019-08-21 07:22] LABS: EOSINOPHILS % (AUTO) 0.7 % (0.0-3.0); HEMATOCRIT 29.8 % (37.0-47.0); LYMPHOCYTES % (AUTO) 30.7 % (20.0-45.0); MEAN CORPUSCULAR VOLUME 92 FL (80-99); NEUTROPHILS % (AUTO) 62.6 % (45.0-75.0); PLATELET COUNT 341 K/UL (150-450); RED BLOOD COUNT 3.25 M/UL (4.20-5.40); RED CELL DISTRIBUTION WIDTH 18.4 % (11.6-14.8); WHITE BLOOD COUNT 7.5 K/UL (4.8-10.8)
--- NOTE | 2019-08-21 07:25 | General Progress Note ---
Assessment/Plan Problem List: (1) Failure to thrive (0-17) ICD Codes: R62.51 - Failure to thrive (0-17) SNOMED: 462609270 (2) Hypertensive kidney disease ICD Codes: I12.9 - Hypertensive chronic kidney disease with stage 1 through stage 4 chronic kidney disease, or unspecified chronic kidney disease SNOMED: 21771150 (3) Pneumonia ICD Codes: J18.9 - Pneumonia, unspecified organism SNOMED: 195794033 Qualifiers: Qualified Codes: J18.9 - Pneumonia, unspecified organism (4) ESRD (end stage renal disease) ICD Codes: N18.6 - End stage renal disease SNOMED: 22433133 (5) Septic arthritis ICD Codes: M00.9 - Pyogenic arthritis, unspecified SNOMED: 732661869 (6) Thrombocytopenia ICD Codes: D69.6 - Thrombocytopenia, unspecified SNOMED: 035923105 (7) Hypotension ICD Codes: I95.9 - Hypotension, unspecified SNOMED: 91181539 Qualifiers: Qualified Codes: I95.3 - Hypotension of hemodialysis (8) Malnutrition ICD Codes: E46 - Unspecified protein-calorie malnutrition SNOMED: 13002321 Status: stable, not improved, unchanged, deteriorating Assessment/Plan: cont resp care chest pt/suctioning resp rx cont weaning- try simv No plans for trach. resp/volume status needs to be optimized as much as possible monitor plts iv PPI iv abx HD bp rx critical and guarded tube feeds per gi Subjective ROS Limited/Unobtainable: No Constitutional: Reports: malaise, weakness HEENT: Reports: no symptoms Cardiovascular: Reports: no symptoms Respiratory: Reports: shortness of breath Gastrointestinal/Abdominal: Reports: difficulty swallowing Genitourinary: Reports: no symptoms Neurologic/Psychiatric: Reports: pre-existing deficit Endocrine: Reports: no symptoms Hematologic/Lymphatic: Reports: no symptoms Allergies: Coded Allergies: VANCOMYCIN (Unverified Allergy, Unknown, 08/02/19) All Systems: reviewed and negative except above Subjective no events. on the vent. remains alert and awake. no fevers. alert. minimal congestion/secretions. cxr with pulm edema. no attempts at weaning yesterday Objective Last 24 Hour Vital Signs Date Time Temp Pulse Resp B/P (MAP) Pulse Ox O2 Delivery O2 Flow Rate FiO2 3/8/20 06:49 66 18 40 08/21/19 06:30 63 21 08/21/19 06:00 64 23 159/65 (96) 100 64 08/21/19 05:35 158/63 08/21/19 05:25 64 18 40 08/21/19 05:00 57 18 153/71 (98) 100 57 08/21/19 04:00 98.0 60 23 151/62 (91) 100 60 08/21/19 04:00 64 08/21/19 04:00 40 08/21/19 04:00 Mechanical Ventilator Mechanical Ventilator 08/21/19 03:21 59 18 40 08/21/19 03:00 67 21 157/67 (97) 99 67 08/21/19 02:00 59 19 157/67 (97) 99 59 08/21/19 01:07 165/69 08/21/19 01:00 59 19 165/69 (101) 99 59 08/21/19 00:55 61 18 40 08/21/19 00:00 97.7 65 25 157/69 (98) 100 65 08/21/19 00:00 65 08/21/19 00:00 40 08/21/19 00:00 Mechanical Ventilator Mechanical Ventilator 08/20/19 23:46 166/73 08/20/19 23:32 63 18 40 08/20/19 23:00 60 20 159/70 (99) 100 60 08/20/19 22:00 60 25 155/69 (97) 100 60 08/20/19 21:42 58 18 40 08/20/19 21:00 57 21 163/66 (98) 100 57 08/20/19 20:00 40 08/20/19 20:00 97.6 58 24 156/65 (95) 100 58 08/20/19 20:00 Mechanical Ventilator Mechanical Ventilator 08/20/19 20:00 58 08/20/19 19:31 62 21 40 08/20/19 19:00 70 30 136/65 (88) 100 70 08/20/19 18:14 177/73 08/20/19 18:14 177/73 08/20/19 18:00 59 23 177/73 (107) 100 59 08/20/19 17:30 60 23 161/76 (104) 100 60 08/20/19 17:11 99 20 40 08/20/19 17:00 59 23 160/63 (95) 99 59 08/20/19 16:00 58 08/20/19 16:00 Mechanical Ventilator Mechanical Ventilator 08/20/19 16:00 98.2 62 26 154/65 (94) 100 62 08/20/19 16:00 40 08/20/19 15:10 100 28 40 08/20/19 15:00 56 22 152/65 (94) 100 56 08/20/19 14:30 58 31 144/72 (96) 100 58 08/20/19 14:00 58 31 138/59 (85) 100 58 08/20/19 13:05 100 18 40 08/20/19 13:00 62 33 130/61 (84) 100 62 08/20/19 12:51 114/69 08/20/19 12:30 71 30 101/61 (74) 99 71 08/20/19 12:15 70 28 99/59 (72) 98 70 08/20/19 12:00 82 08/20/19 12:00 98.5 70 29 110/70 (83) 98 70 08/20/19 12:00 Mechanical Ventilator Mechanical Ventilator 08/20/19 12:00 40 08/20/19 11:10 95 20 40 08/20/19 11:00 80 25 99/62 (74) 93 62 08/20/19 10:00 98.5 63 19 170/83 (112) 100 63 08/20/19 09:10 78 22 40 08/20/19 09:00 62 26 171/86 (114) 100 62 08/20/19 08:00 Mechanical Ventilator Mechanical Ventilator 08/20/19 08:00 40 08/20/19 08:00 60 24 155/74 (101) 85 60 08/20/19 08:00 60 Intake and Output 08/20/19 08/21/19 19:00 07:00 Intake Total 1865 ml 490 ml Output Total 1000 ml 50 ml Balance 865 ml 440 ml Intake Free Water 280 ml 140 ml IV Total 155 ml Tube Feeding 350 ml 350 ml Hemodialysis 1000 ml Other 80 ml Output Urine Total 50 ml Hemodialysis UF 1000 ml # Bowel Movements 1 1 Laboratory Tests 08/21/19 04:00: White Blood Count 7.5, Red Blood Count 3.25L, Hemoglobin 10.0L, Hematocrit 29.8L , Mean Corpuscular Volume 92, Mean Corpuscular Hemoglobin 30.7, Mean Corpuscular Hemoglobin Concent 33.5, Red Cell Distribution Width 18.4H, Platelet Count 341, Mean Platelet Volume 7.0, Neutrophils (%) (Auto) 62.6, Lymphocytes (%) (Auto) 30.7, Monocytes (%) (Auto) 5.0, Eosinophils (%) (Auto) 0.7, Basophils (%) (Auto) 1.0, Sodium Level [Pending], Potassium Level [Pending] , Chloride Level [Pending], Carbon Dioxide Level [Pending], Blood Urea Nitrogen [Pending], Creatinine [Pending], Estimat Glomerular Filtration Rate [Pending], Glucose Level [Pending], Calcium Level [Pending], Phosphorus Level [Pending], Magnesium Level [Pending], Total Bilirubin [Pending], Aspartate Amino Transf ( AST/SGOT) [Pending], Alanine Aminotransferase (ALT/SGPT) [Pending], Alkaline Phosphatase [Pending], C-Reactive Protein, Quantitative [Pending], Pro-B-Type Natriuretic Peptide [Pending], Total Protein [Pending], Albumin [Pending], Globulin [Pending] Height (Feet): 5 Height (Inches): 4.00 Weight (Pounds): 95 Objective General Appearance: WD/WN, awake/moaning. orally intubated Neck: supple Cardiovascular: normal rate Respiratory/Chest: rhonchi - bilaterally Abdomen: normal bowel sounds, non tender, soft, no organomegaly Edema: no edema noted Arm (L), no edema noted Arm (R), no edema noted Leg (L), no edema noted Leg (R), no edema noted Pedal (L), no edema noted Pedal (R), no edema noted Generalized Neurologic: disoriented, aphasia Nate Beltran MD Aug 21, 2019 07:25
[2019-08-21] MEDS: Meropenem 500 MG in NS 55 ML IVPB SCH ×2 (08:38→21:08)
[2019-08-21 08:57] LABS: ALBUMIN 1.6 G/DL (3.4-5.0); ALBUMIN/GLOBULIN RATIO 0.4 (1.0-2.7); ALKALINE PHOSPHATASE 167 U/L (46-116); ANION GAP 11 mmol/L (5-15); ASPARTATE AMINO TRANSFERASE 22 U/L (15-37); BILIRUBIN,TOTAL 0.5 MG/DL (0.2-1.0); BLOOD UREA NITROGEN 26 mg/dL (7-18); CALCIUM 8.4 MG/DL (8.5-10.1); CARBON DIOXIDE 27 MMOL/L (21-32); CHLORIDE 102 MMOL/L (98-107); CREATININE 3.1 MG/DL (0.55-1.30); PHOSPHORUS 2.1 MG/DL (2.5-4.9); POTASSIUM 3.3 MMOL/L (3.5-5.1); SODIUM 140 MMOL/L (136-145)
--- NOTE | 2019-08-21 08:57 | General Progress Note ---
Assessment/Plan Status: stable, not improved, unchanged, deteriorating Assessment/Plan: Assessment/Plan Status: stable, not improved, unchanged, deteriorating Assessment/Plan: Assessment - Severe ulcerative esophagitis on endoscopy - on BID PPI - Resp failure --> now intubated - thrombocytopenia --> resolved - Renal failure --> now on HD, stablized - aspiration risk --> s/p PEG - anemia - bradycardia - Poor prognosis Recommendations - Continue TF - OK to restart anticoagulation from GI standpoint - monitor H&H - f/u esophageal biopsies Subjective ROS Limited/Unobtainable: No Allergies: Coded Allergies: VANCOMYCIN (Unverified Allergy, Unknown, 08/02/19) Objective Last 24 Hour Vital Signs Date Time Temp Pulse Resp B/P (MAP) Pulse Ox O2 Delivery O2 Flow Rate FiO2 08/21/19 08:43 68 15 4 40 08/21/19 08:00 98.2 65 22 152/62 (92) 99 65 08/21/19 08:00 Mechanical Ventilator Mechanical Ventilator 08/21/19 08:00 40 08/21/19 07:00 67 23 151/66 (94) 99 67 08/21/19 06:49 66 18 40 08/21/19 06:30 63 21 08/21/19 06:00 64 23 159/65 (96) 100 64 08/21/19 05:35 158/63 08/21/19 05:25 64 18 40 08/21/19 05:00 57 18 153/71 (98) 100 57 08/21/19 04:00 98.0 60 23 151/62 (91) 100 60 08/21/19 04:00 64 08/21/19 04:00 40 08/21/19 04:00 Mechanical Ventilator Mechanical Ventilator 08/21/19 03:21 59 18 40 08/21/19 03:00 67 21 157/67 (97) 99 67 08/21/19 02:00 59 19 157/67 (97) 99 59 08/21/19 01:07 165/69 08/21/19 01:00 59 19 165/69 (101) 99 59 08/21/19 00:55 61 18 40 08/21/19 00:00 97.7 65 25 157/69 (98) 100 65 08/21/19 00:00 65 08/21/19 00:00 40 08/21/19 00:00 Mechanical Ventilator Mechanical Ventilator 08/20/19 23:46 166/73 08/20/19 23:32 63 18 40 08/20/19 23:00 60 20 159/70 (99) 100 60 08/20/19 22:00 60 25 155/69 (97) 100 60 08/20/19 21:42 58 18 40 08/20/19 21:00 57 21 163/66 (98) 100 57 08/20/19 20:00 40 08/20/19 20:00 97.6 58 24 156/65 (95) 100 58 08/20/19 20:00 Mechanical Ventilator Mechanical Ventilator 08/20/19 20:00 58 08/20/19 19:31 62 21 40 08/20/19 19:00 70 30 136/65 (88) 100 70 08/20/19 18:14 177/73 08/20/19 18:14 177/73 08/20/19 18:00 59 23 177/73 (107) 100 59 08/20/19 17:30 60 23 161/76 (104) 100 60 08/20/19 17:11 99 20 40 08/20/19 17:00 59 23 160/63 (95) 99 59 08/20/19 16:00 58 08/20/19 16:00 Mechanical Ventilator Mechanical Ventilator 08/20/19 16:00 98.2 62 26 154/65 (94) 100 62 08/20/19 16:00 40 08/20/19 15:10 100 28 40 08/20/19 15:00 56 22 152/65 (94) 100 56 08/20/19 14:30 58 31 144/72 (96) 100 58 08/20/19 14:00 58 31 138/59 (85) 100 58 08/20/19 13:05 100 18 40 08/20/19 13:00 62 33 130/61 (84) 100 62 08/20/19 12:51 114/69 08/20/19 12:30 71 30 101/61 (74) 99 71 08/20/19 12:15 70 28 99/59 (72) 98 70 08/20/19 12:00 82 08/20/19 12:00 98.5 70 29 110/70 (83) 98 70 08/20/19 12:00 Mechanical Ventilator Mechanical Ventilator 08/20/19 12:00 40 08/20/19 11:10 95 20 40 08/20/19 11:00 80 25 99/62 (74) 93 62 08/20/19 10:00 98.5 63 19 170/83 (112) 100 63 08/20/19 09:10 78 22 40 08/20/19 09:00 62 26 171/86 (114) 100 62 Intake and Output 08/20/19 08/21/19 19:00 07:00 Intake Total 1865 ml 525 ml Output Total 1000 ml 50 ml Balance 865 ml 475 ml Intake Free Water 280 ml 140 ml IV Total 155 ml Tube Feeding 350 ml 385 ml Hemodialysis 1000 ml Other 80 ml Output Urine Total 50 ml Hemodialysis UF 1000 ml # Bowel Movements 1 1 Laboratory Tests 08/21/19 04:00: White Blood Count 7.5, Red Blood Count 3.25L, Hemoglobin 10.0L, Hematocrit 29.8L , Mean Corpuscular Volume 92, Mean Corpuscular Hemoglobin 30.7, Mean Corpuscular Hemoglobin Concent 33.5, Red Cell Distribution Width 18.4H, Platelet Count 341, Mean Platelet Volume 7.0, Neutrophils (%) (Auto) 62.6, Lymphocytes (%) (Auto) 30.7, Monocytes (%) (Auto) 5.0, Eosinophils (%) (Auto) 0.7, Basophils (%) (Auto) 1.0, Sodium Level [Pending], Potassium Level [Pending] , Chloride Level [Pending], Carbon Dioxide Level [Pending], Blood Urea Nitrogen [Pending], Creatinine [Pending], Estimat Glomerular Filtration Rate [Pending], Glucose Level [Pending], Calcium Level [Pending], Phosphorus Level [Pending], Magnesium Level [Pending], Total Bilirubin [Pending], Aspartate Amino Transf ( AST/SGOT) [Pending], Alanine Aminotransferase (ALT/SGPT) [Pending], Alkaline Phosphatase [Pending], C-Reactive Protein, Quantitative [Pending], Pro-B-Type Natriuretic Peptide [Pending], Total Protein [Pending], Albumin [Pending], Globulin [Pending] Height (Feet): 5 Height (Inches): 4.00 Weight (Pounds): 95 General Appearance: no apparent distress EENT: normal ENT inspection Neck: supple Cardiovascular: normal rate Respiratory/Chest: decreased breath sounds Abdomen: normal bowel sounds, non tender, soft Extremities: non-tender Kenny Rudolph MD Aug 21, 2019 08:57
--- NOTE | 2019-08-21 09:16 | Hematology/Onc Progress Note ---
Assessment/Plan Assessment/Plan # Thrombocytopenia - potential causes multifactorial, evaluate liver and viral etiologies to begin, in this case due to sepsis with septic shock also with cirrhosis and liver disease --> Hep panel and HIV ordered -> neg --> US abd to evaluate for cirrhosis and hsm ordered --> reviewed --> Peripheral smear ordered to evaluate for blasts /schistocytes --> abx and other meds have been reviewed --> ok for ppx if plt >50k w/ either heparin or lovenox --> Transfuse if Plt < 20k and fever, or if Plt < 10k without fever --> okay for permacath change once plt better--> for 08/14 --> plt trend: 43-->83-->237k-->292-->341 # Anemia of chronic disease due to underlying chronic medical issues, multifactorial v Gi bleed --> Anemia workup has been ordered, rule out gi bleed --> No evidence of hemolysis is noted, peripheral smear has been reviewed. --> Hgb goal >7. Transfuse prn. --> Epogen has been started --> HOLD OFF IRON ferritin is >1000 --> Medications have been reviewed --> low threshold for gi evaluation in case has occult + --> hgb 9-->6.7-->9.2 -->10.5-->10.6 -->10.7-->10 --> blood tx: 08/11 # Early sepsis with shock. --> abx as per id, recs noted # Healthcare-associated pneumonia. --> recs reviewed --> abx: jung/micafungin-->jung # Severe protein-calorie malnutrition. --> nutritional support # End-stage renal disease --> had as renal hd --> with permacath # History of hypertension. --> per cards, now with Bradycardia. # resp failure s/p vent # HypoThyroid # Ngt feedings # Dvt ppx scd's The timing of this note does not necessarily reflect the time of the patient was seen. Greatly appreciate consultation. Subjective Allergies: Coded Allergies: VANCOMYCIN (Unverified Allergy, Unknown, 08/02/19) Subjective 08/11: no bleeding or chills, labs reviewed, no major bleeding, plt less than 50k 08/12: icu, s/p blood, hgb improved to 9.2, 08/14: icu, pending consent for thora and permacath, labs reviewed 08/15: new permacath placed, no bleeding, for hd, plt much improved, started lovenox sq 08/16: ett to be adjusted, bp on high end, micafungin started, possible bronch 08/17: weaning as per pulm, no events otherwise, labs noted 08/18: no events no bleeding, remains confused on vent, for hd 08/20: icu, failed to wean, labs reviewed, jung Objective Objective Current Medications Medications (Trade) Dose Ordered Sig/Javier Route PRN Reason Start Time Stop Time Status Last Admin Dose Admin Albuterol/ Ipratropium (Albuterol/ Ipratropium) 3 ml Q4H PRN HHN Shortness of Breath 08/19/19 07:45 08/24/19 07:44 Atropine Sulfate (Atropine) 1 mg Q4H PRN IVP Per rx protocol 08/13/19 08:30 09/12/19 08:29 Chlorhexidine Gluconate (Nae-Hex 2%) 1 applic DAILY@2000 TOPIC 08/15/19 20:00 09/14/19 19:59 08/20/19 20:46 Dextrose (Dextrose 50%) 50 ml Q30M PRN IV Hypoglycemia 08/11/19 10:30 09/04/19 17:44 08/18/19 12:36 Diphenhydramine HCl (Benadryl) 50 mg Q4H PRN IVP Itching 08/09/19 14:30 09/08/19 14:29 08/13/19 02:39 Epoetin Thomas (Epoetin Thomas(ESRD on dialysis)) 4,000 unit THU-THU-THU SUBQ 08/12/19 21:00 09/11/19 20:59 08/19/19 20:33 Fluconazole/ Sodium Chloride 100 ml @ 100 mls/hr Q24H IV 08/18/19 13:00 08/29/19 23:59 08/20/19 12:52 Hydralazine HCl (Apresoline) 10 mg Q4H PRN IV For High Blood Pressure 08/18/19 12:44 09/17/19 12:43 08/21/19 01:07 Lansoprazole (Prevacid) 30 mg BID GT 08/19/19 09:00 09/18/19 08:59 08/21/19 08:37 Levothyroxine Sodium (Synthroid) 50 mcg DAILY IV 08/19/19 10:30 09/18/19 10:29 08/20/19 09:00 Lorazepam (Ativan 2mg/ml 1ml) 1 mg Q3H PRN IV For Anxiety 08/17/19 11:30 08/24/19 11:29 Meropenem 500 mg/ Sodium Chloride 55 ml @ 110 mls/hr EVERY 12 HOURS IVPB 08/18/19 21:00 08/23/19 20:59 08/21/19 08:38 Metoclopramide HCl (Reglan) 5 mg Q8H PRN IVP Nausea & Vomiting 08/09/19 12:39 09/08/19 12:38 Nitroglycerin (Nitro-Bid) 1 inch Q6HR TOPIC 08/09/19 12:39 09/08/19 12:38 08/21/19 05:35 Last 24 Hour Vital Signs Date Time Temp Pulse Resp B/P (MAP) Pulse Ox O2 Delivery O2 Flow Rate FiO2 08/21/19 08:43 68 15 4 40 08/21/19 08:00 98.2 65 22 152/62 (92) 99 65 08/21/19 08:00 Mechanical Ventilator Mechanical Ventilator 08/21/19 08:00 40 08/21/19 07:00 67 23 151/66 (94) 99 67 08/21/19 06:49 66 18 40 08/21/19 06:30 63 21 08/21/19 06:00 64 23 159/65 (96) 100 64 08/21/19 05:35 158/63 08/21/19 05:25 64 18 40 08/21/19 05:00 57 18 153/71 (98) 100 57 08/21/19 04:00 98.0 60 23 151/62 (91) 100 60 08/21/19 04:00 64 08/21/19 04:00 40 08/21/19 04:00 Mechanical Ventilator Mechanical Ventilator 08/21/19 03:21 59 18 40 08/21/19 03:00 67 21 157/67 (97) 99 67 08/21/19 02:00 59 19 157/67 (97) 99 59 08/21/19 01:07 165/69 08/21/19 01:00 59 19 165/69 (101) 99 59 08/21/19 00:55 61 18 40 08/21/19 00:00 97.7 65 25 157/69 (98) 100 65 08/21/19 00:00 65 08/21/19 00:00 40 08/21/19 00:00 Mechanical Ventilator Mechanical Ventilator 08/20/19 23:46 166/73 08/20/19 23:32 63 18 40 08/20/19 23:00 60 20 159/70 (99) 100 60 08/20/19 22:00 60 25 155/69 (97) 100 60 08/20/19 21:42 58 18 40 08/20/19 21:00 57 21 163/66 (98) 100 57 08/20/19 20:00 40 08/20/19 20:00 97.6 58 24 156/65 (95) 100 58 08/20/19 20:00 Mechanical Ventilator Mechanical Ventilator 08/20/19 20:00 58 08/20/19 19:31 62 21 40 08/20/19 19:00 70 30 136/65 (88) 100 70 08/20/19 18:14 177/73 08/20/19 18:14 177/73 08/20/19 18:00 59 23 177/73 (107) 100 59 08/20/19 17:30 60 23 161/76 (104) 100 60 08/20/19 17:11 99 20 40 08/20/19 17:00 59 23 160/63 (95) 99 59 08/20/19 16:00 58 08/20/19 16:00 Mechanical Ventilator Mechanical Ventilator 08/20/19 16:00 98.2 62 26 154/65 (94) 100 62 08/20/19 16:00 40 08/20/19 15:10 100 28 40 08/20/19 15:00 56 22 152/65 (94) 100 56 08/20/19 14:30 58 31 144/72 (96) 100 58 08/20/19 14:00 58 31 138/59 (85) 100 58 08/20/19 13:05 100 18 40 08/20/19 13:00 62 33 130/61 (84) 100 62 08/20/19 12:51 114/69 08/20/19 12:30 71 30 101/61 (74) 99 71 08/20/19 12:15 70 28 99/59 (72) 98 70 08/20/19 12:00 82 08/20/19 12:00 98.5 70 29 110/70 (83) 98 70 08/20/19 12:00 Mechanical Ventilator Mechanical Ventilator 08/20/19 12:00 40 08/20/19 11:10 95 20 40 08/20/19 11:00 80 25 99/62 (74) 93 62 08/20/19 10:00 98.5 63 19 170/83 (112) 100 63 08/20/19 09:10 78 22 40 08/20/19 09:00 62 26 171/86 (114) 100 62 08/20/19 08:00 Mechanical Ventilator Mechanical Ventilator 08/20/19 08:00 40 08/20/19 08:00 60 24 155/74 (101) 85 60 08/20/19 08:00 60 08/20/19 07:02 56 18 40 08/20/19 07:00 61 23 149/63 (91) 100 61 08/20/19 06:30 61 17 08/20/19 06:00 61 17 145/68 (93) 100 61 08/20/19 05:31 65 18 40 08/20/19 05:11 145/68 08/20/19 05:00 68 22 145/68 (93) 100 68 08/20/19 05:00 40 08/20/19 04:20 166/84 08/20/19 04:00 97.9 64 19 166/84 (111) 100 64 08/20/19 04:00 Mechanical Ventilator Mechanical Ventilator 08/20/19 04:00 70 08/20/19 03:28 74 20 40 08/20/19 03:00 71 22 167/79 (108) 98 71 08/20/19 02:00 71 21 161/81 (107) 100 71 08/20/19 01:53 82 18 40 08/20/19 01:00 69 18 159/92 (114) 99 69 08/20/19 00:00 78 08/20/19 00:00 97.9 72 19 158/77 (104) 100 72 08/20/19 00:00 Mechanical Ventilator Mechanical Ventilator 08/20/19 00:00 40 08/19/19 23:43 153/74 08/19/19 23:00 78 24 153/74 (100) 99 78 08/19/19 22:52 86 20 40 08/19/19 22:00 73 25 164/68 (100) 99 73 08/19/19 21:00 66 24 146/66 (92) 100 66 08/19/19 20:52 66 18 40 08/19/19 20:00 Mechanical Ventilator Mechanical Ventilator 08/19/19 20:00 71 08/19/19 20:00 40 08/19/19 20:00 76 27 140/75 (96) 99 76 08/19/19 19:32 68 18 40 08/19/19 19:00 98.1 68 26 148/67 (94) 100 68 08/19/19 18:38 171/84 08/19/19 18:37 171/84 08/19/19 18:00 67 16 148/67 (94) 100 67 08/19/19 17:00 68 25 172/89 (116) 99 68 08/19/19 16:46 71 18 40 08/19/19 16:00 98.0 69 24 171/84 (113) 100 69 08/19/19 16:00 40 08/19/19 16:00 Mechanical Ventilator Mechanical Ventilator 08/19/19 16:00 69 08/19/19 15:00 64 23 144/64 (90) 100 64 08/19/19 14:41 64 18 40 08/19/19 14:00 63 23 158/83 (108) 100 63 08/19/19 13:00 64 26 151/65 (93) 100 64 08/19/19 12:47 82 18 40 08/19/19 12:31 155/115 08/19/19 12:00 40 08/19/19 12:00 Mechanical Ventilator Mechanical Ventilator 08/19/19 12:00 97.9 65 34 155/115 (128) 100 65 08/19/19 12:00 67 08/19/19 11:11 65 18 40 08/19/19 11:00 66 29 159/65 (96) 100 66 08/19/19 10:00 63 20 150/46 (80) 100 Intake and Output 08/20/19 08/21/19 19:00 07:00 Intake Total 1865 ml 525 ml Output Total 1000 ml 50 ml Balance 865 ml 475 ml Intake Free Water 280 ml 140 ml IV Total 155 ml Tube Feeding 350 ml 385 ml Hemodialysis 1000 ml Other 80 ml Output Urine Total 50 ml Hemodialysis UF 1000 ml # Bowel Movements 1 1 Labs Test 08/19/19 03:40 08/20/19 05:00 08/21/19 04:00 White Blood Count 6.3 K/UL (4.8-10.8) 7.9 K/UL (4.8-10.8) 7.5 K/UL (4.8-10.8) Red Blood Count 3.46 M/UL (4.20-5.40) 3.42 M/UL (4.20-5.40) 3.25 M/UL (4.20-5.40) Hemoglobin 10.7 G/DL (12.0-16.0) 10.5 G/DL (12.0-16.0) 10.0 G/DL (12.0-16.0) Hematocrit 31.1 % (37.0-47.0) 31.4 % (37.0-47.0) 29.8 % (37.0-47.0) Mean Corpuscular Volume 90 FL (80-99) 92 FL (80-99) 92 FL (80-99) Mean Corpuscular Hemoglobin 31.0 PG (27.0-31.0) 30.8 PG (27.0-31.0) 30.7 PG (27.0-31.0) Mean Corpuscular Hemoglobin Concent 34.4 G/DL (32.0-36.0) 33.5 G/DL (32.0-36.0) 33.5 G/DL (32.0-36.0) Red Cell Distribution Width 18.2 % (11.6-14.8) 18.4 % (11.6-14.8) 18.4 % (11.6-14.8) Platelet Count 319 K/UL (150-450) 367 K/UL (150-450) 341 K/UL (150-450) Mean Platelet Volume 6.4 FL (6.5-10.1) 6.8 FL (6.5-10.1) 7.0 FL (6.5-10.1) Neutrophils (%) (Auto) 40.3 % (45.0-75.0) 57.8 % (45.0-75.0) 62.6 % (45.0-75.0) Lymphocytes (%) (Auto) 49.7 % (20.0-45.0) 35.5 % (20.0-45.0) 30.7 % (20.0-45.0) Monocytes (%) (Auto) 7.7 % (1.0-10.0) 5.2 % (1.0-10.0) 5.0 % (1.0-10.0) Eosinophils (%) (Auto) 0.7 % (0.0-3.0) 0.4 % (0.0-3.0) 0.7 % (0.0-3.0) Basophils (%) (Auto) 1.6 % (0.0-2.0) 1.0 % (0.0-2.0) 1.0 % (0.0-2.0) Sodium Level 143 MMOL/L (136-145) 142 MMOL/L (136-145) Potassium Level 3.2 MMOL/L (3.5-5.1) 3.5 MMOL/L (3.5-5.1) Chloride Level 106 MMOL/L (98-107) 105 MMOL/L (98-107) Carbon Dioxide Level 25 MMOL/L (21-32) 27 MMOL/L (21-32) Anion Gap 12 mmol/L (5-15) 10 mmol/L (5-15) Blood Urea Nitrogen 28 mg/dL (7-18) 35 mg/dL (7-18) Creatinine 3.6 MG/DL (0.55-1.30) 4.0 MG/DL (0.55-1.30) Estimat Glomerular Filtration Rate 12.2 mL/min (>60) 10.8 mL/min (>60) Glucose Level 119 MG/DL (74-106) 145 MG/DL (74-106) Calcium Level 8.5 MG/DL (8.5-10.1) 8.5 MG/DL (8.5-10.1) Phosphorus Level 2.9 MG/DL (2.5-4.9) 3.0 MG/DL (2.5-4.9) Magnesium Level 1.5 MG/DL (1.8-2.4) 2.2 MG/DL (1.8-2.4) Total Bilirubin 0.5 MG/DL (0.2-1.0) 0.4 MG/DL (0.2-1.0) Aspartate Amino Transf (AST/SGOT) 23 U/L (15-37) 18 U/L (15-37) Alanine Aminotransferase (ALT/SGPT) 9 U/L (12-78) 13 U/L (12-78) Alkaline Phosphatase 149 U/L (46-116) 184 U/L (46-116) C-Reactive Protein, Quantitative 2.6 mg/dL (0.00-0.90) 2.7 mg/dL (0.00-0.90) Pro-B-Type Natriuretic Peptide > 89704 pg/mL (0-125) > 3500 pg/mL (0-125) Total Protein 5.2 G/DL (6.4-8.2) 5.4 G/DL (6.4-8.2) Albumin 1.1 G/DL (3.4-5.0) 1.3 G/DL (3.4-5.0) Globulin 4.1 g/dL 4.1 g/dL Albumin/Globulin Ratio 0.3 (1.0-2.7) 0.3 (1.0-2.7) Prothrombin Time 11.0 SEC (9.30-11.50) Prothromb Time International Ratio 1.0 (0.9-1.1) Activated Partial Thromboplast Time 30 SEC (23-33) Height (Feet): 5 Height (Inches): 4.00 Weight (Pounds): 95 Objective gen: nad pulm: on trach+ / vent cv: rrr, no gmr abd: sfot, nt, nd ++ gt ext: no cce Gio Rob MD Aug 21, 2019 09:16
[2019-08-21 09:20] LABS: ALANINE AMINOTRANSFERASE 7 U/L (12-78)
--- NOTE | 2019-08-21 10:01 | Infectious Diseases Prog Note ---
Assessment/Plan Assessment/Plan A; 1. Hailee sepsis 2. Klebsiella sepsis , treated 3. Right shoulder septic arthritis, status post surgery. 4. Diabetes. 5. Hypertension. 6. Anemia 7. Thrombocytopenia improving 9. Atelectasis , left lung collapse PLAN: 1. Continue Meropenem 2. Continue Fluconazole X 8 days 3. Repeat blood culture 4. Case was with Pharmacist Subjective ROS Limited/Unobtainable: Yes Respiratory: Reports: other - on weaaning process Gastrointestinal/Abdominal: Reports: other - loose stool Allergies: Coded Allergies: VANCOMYCIN (Unverified Allergy, Unknown, 08/02/19) Objective Vital Signs Last 24 Hour Vital Signs Date Time Temp Pulse Resp B/P (MAP) Pulse Ox O2 Delivery O2 Flow Rate FiO2 08/21/19 09:28 163/76 08/21/19 09:00 72 26 163/76 (105) 100 72 08/21/19 08:43 68 15 4 40 08/21/19 08:00 98.2 65 22 152/62 (92) 99 65 08/21/19 08:00 Mechanical Ventilator Mechanical Ventilator 08/21/19 08:00 40 08/21/19 07:00 67 23 151/66 (94) 99 67 08/21/19 06:49 66 18 40 08/21/19 06:30 63 21 08/21/19 06:00 64 23 159/65 (96) 100 64 08/21/19 05:35 158/63 08/21/19 05:25 64 18 40 08/21/19 05:00 57 18 153/71 (98) 100 57 08/21/19 04:00 98.0 60 23 151/62 (91) 100 60 08/21/19 04:00 64 08/21/19 04:00 40 08/21/19 04:00 Mechanical Ventilator Mechanical Ventilator 08/21/19 03:21 59 18 40 08/21/19 03:00 67 21 157/67 (97) 99 67 08/21/19 02:00 59 19 157/67 (97) 99 59 08/21/19 01:07 165/69 08/21/19 01:00 59 19 165/69 (101) 99 59 08/21/19 00:55 61 18 40 08/21/19 00:00 97.7 65 25 157/69 (98) 100 65 08/21/19 00:00 65 08/21/19 00:00 40 08/21/19 00:00 Mechanical Ventilator Mechanical Ventilator 08/20/19 23:46 166/73 08/20/19 23:32 63 18 40 08/20/19 23:00 60 20 159/70 (99) 100 60 08/20/19 22:00 60 25 155/69 (97) 100 60 08/20/19 21:42 58 18 40 08/20/19 21:00 57 21 163/66 (98) 100 57 08/20/19 20:00 40 08/20/19 20:00 97.6 58 24 156/65 (95) 100 58 08/20/19 20:00 Mechanical Ventilator Mechanical Ventilator 08/20/19 20:00 58 08/20/19 19:31 62 21 40 08/20/19 19:00 70 30 136/65 (88) 100 70 08/20/19 18:14 177/73 08/20/19 18:14 177/73 08/20/19 18:00 59 23 177/73 (107) 100 59 08/20/19 17:30 60 23 161/76 (104) 100 60 08/20/19 17:11 99 20 40 08/20/19 17:00 59 23 160/63 (95) 99 59 08/20/19 16:00 58 08/20/19 16:00 Mechanical Ventilator Mechanical Ventilator 08/20/19 16:00 98.2 62 26 154/65 (94) 100 62 08/20/19 16:00 40 08/20/19 15:10 100 28 40 08/20/19 15:00 56 22 152/65 (94) 100 56 08/20/19 14:30 58 31 144/72 (96) 100 58 08/20/19 14:00 58 31 138/59 (85) 100 58 08/20/19 13:05 100 18 40 08/20/19 13:00 62 33 130/61 (84) 100 62 08/20/19 12:51 114/69 08/20/19 12:30 71 30 101/61 (74) 99 71 08/20/19 12:15 70 28 99/59 (72) 98 70 08/20/19 12:00 82 08/20/19 12:00 98.5 70 29 110/70 (83) 98 70 08/20/19 12:00 Mechanical Ventilator Mechanical Ventilator 08/20/19 12:00 40 08/20/19 11:10 95 20 40 08/20/19 11:00 80 25 99/62 (74) 93 62 08/20/19 10:00 98.5 63 19 170/83 (112) 100 63 Height (Feet): 5 Height (Inches): 4.00 Weight (Pounds): 95 General Appearance: cachetic HEENT: other - orally intubated Respiratory/Chest: decreased breath sounds, other - on ventilator Cardiovascular: normal rate, other - R femoral HD line Abdomen: soft, non tender, other - GT feeding Extremities: other - hands edema Neurologic/Psychiatric: other - opens eyes Laboratory Tests Test 08/21/19 04:00 White Blood Count 7.5 K/UL (4.8-10.8) Red Blood Count 3.25 M/UL (4.20-5.40) L Hemoglobin 10.0 G/DL (12.0-16.0) L Hematocrit 29.8 % (37.0-47.0) L Mean Corpuscular Volume 92 FL (80-99) Mean Corpuscular Hemoglobin 30.7 PG (27.0-31.0) Mean Corpuscular Hemoglobin Concent 33.5 G/DL (32.0-36.0) Red Cell Distribution Width 18.4 % (11.6-14.8) H Platelet Count 341 K/UL (150-450) Mean Platelet Volume 7.0 FL (6.5-10.1) Neutrophils (%) (Auto) 62.6 % (45.0-75.0) Lymphocytes (%) (Auto) 30.7 % (20.0-45.0) Monocytes (%) (Auto) 5.0 % (1.0-10.0) Eosinophils (%) (Auto) 0.7 % (0.0-3.0) Basophils (%) (Auto) 1.0 % (0.0-2.0) Sodium Level 140 MMOL/L (136-145) Potassium Level 3.3 MMOL/L (3.5-5.1) L Chloride Level 102 MMOL/L (98-107) Carbon Dioxide Level 27 MMOL/L (21-32) Anion Gap 11 mmol/L (5-15) Blood Urea Nitrogen 26 mg/dL (7-18) H Creatinine 3.1 MG/DL (0.55-1.30) H Estimat Glomerular Filtration Rate 14.5 mL/min (>60) Glucose Level 129 MG/DL (74-106) H Calcium Level 8.4 MG/DL (8.5-10.1) L Phosphorus Level 2.1 MG/DL (2.5-4.9) L Magnesium Level 1.9 MG/DL (1.8-2.4) Total Bilirubin 0.5 MG/DL (0.2-1.0) Aspartate Amino Transf (AST/SGOT) 22 U/L (15-37) Alanine Aminotransferase (ALT/SGPT) 7 U/L (12-78) L Alkaline Phosphatase 167 U/L (46-116) H C-Reactive Protein, Quantitative 3.1 mg/dL (0.00-0.90) H Pro-B-Type Natriuretic Peptide > 23932 pg/mL (0-125) H Total Protein 5.5 G/DL (6.4-8.2) L Albumin 1.6 G/DL (3.4-5.0) L Globulin 3.9 g/dL Albumin/Globulin Ratio 0.4 (1.0-2.7) L Current Medications Medications (Trade) Dose Ordered Sig/Javier Route PRN Reason Start Time Stop Time Status Last Admin Dose Admin Albuterol/ Ipratropium (Albuterol/ Ipratropium) 3 ml Q4H PRN HHN Shortness of Breath 08/19/19 07:45 08/24/19 07:44 Atropine Sulfate (Atropine) 1 mg Q4H PRN IVP Per rx protocol 08/13/19 08:30 09/12/19 08:29 Chlorhexidine Gluconate (Nae-Hex 2%) 1 applic DAILY@1999 TOPIC 08/15/19 20:00 09/14/19 19:59 08/20/19 20:46 Dextrose (Dextrose 50%) 50 ml Q30M PRN IV Hypoglycemia 08/11/19 10:30 09/04/19 17:44 08/18/19 12:36 Diphenhydramine HCl (Benadryl) 50 mg Q4H PRN IVP Itching 08/09/19 14:30 09/08/19 14:29 08/13/19 02:39 Epoetin Thomas (Epoetin Thomas(ESRD on dialysis)) 4,000 unit -THU SUBQ 08/12/19 21:00 09/11/19 20:59 08/19/19 20:33 Fluconazole/ Sodium Chloride 100 ml @ 100 mls/hr Q24H IV 08/18/19 13:00 08/29/19 23:59 08/20/19 12:52 Hydralazine HCl (Apresoline) 10 mg Q4H PRN IV For High Blood Pressure 08/18/19 12:44 09/17/19 12:43 08/21/19 09:28 Lansoprazole (Prevacid) 30 mg BID GT 08/19/19 09:00 09/18/19 08:59 08/21/19 08:37 Levothyroxine Sodium (Synthroid) 75 mcg DAILY@0630 ORAL 08/22/19 06:30 09/21/19 06:29 Lorazepam (Ativan 2mg/ml 1ml) 1 mg Q3H PRN IV For Anxiety 08/17/19 11:30 08/24/19 11:29 Meropenem 500 mg/ Sodium Chloride 55 ml @ 110 mls/hr EVERY 12 HOURS IVPB 08/18/19 21:00 08/23/19 20:59 08/21/19 08:38 Metoclopramide HCl (Reglan) 5 mg Q8H PRN IVP Nausea & Vomiting 08/09/19 12:39 09/08/19 12:38 Nitroglycerin (Nitro-Bid) 1 inch Q6HR TOPIC 08/09/19 12:39 09/08/19 12:38 08/21/19 05:35 Warren Parks MD Aug 21, 2019 10:01
--- NOTE | 2019-08-21 13:34 | Surgery Progress Note ---
Surgery Progress Note Subjective Procedure Performed Right Femoral Temporary Hemodialysis catheter Insertion Additional Comments tolerating vent wean a bit better today cont weaning vent as tolerated labs noted exam stable Objective Last 24 Hour Vital Signs Date Time Temp Pulse Resp B/P (MAP) Pulse Ox O2 Delivery O2 Flow Rate FiO2 08/21/19 13:00 58 18 142/67 (92) 99 58 08/21/19 12:45 61 18 40 08/21/19 12:20 134/71 08/21/19 12:00 98.0 59 18 134/71 (92) 98 59 08/21/19 12:00 Mechanical Ventilator Mechanical Ventilator 08/21/19 12:00 40 08/21/19 11:44 60 08/21/19 11:09 100 08/21/19 11:06 73 18 40 08/21/19 11:00 66 13 150/67 (94) 100 66 08/21/19 10:00 74 19 146/86 (106) 100 74 08/21/19 09:28 163/76 08/21/19 09:00 72 26 163/76 (105) 100 72 08/21/19 08:43 68 15 4 40 08/21/19 08:00 98.2 65 22 152/62 (92) 99 65 08/21/19 08:00 Mechanical Ventilator Mechanical Ventilator 08/21/19 08:00 40 08/21/19 07:28 65 08/21/19 07:00 67 23 151/66 (94) 99 67 08/21/19 06:49 66 18 40 08/21/19 06:30 63 21 08/21/19 06:00 64 23 159/65 (96) 100 64 08/21/19 05:35 158/63 08/21/19 05:25 64 18 40 08/21/19 05:00 57 18 153/71 (98) 100 57 08/21/19 04:00 98.0 60 23 151/62 (91) 100 60 08/21/19 04:00 64 08/21/19 04:00 40 08/21/19 04:00 Mechanical Ventilator Mechanical Ventilator 08/21/19 03:21 59 18 40 08/21/19 03:00 67 21 157/67 (97) 99 67 08/21/19 02:00 59 19 157/67 (97) 99 59 08/21/19 01:07 165/69 08/21/19 01:00 59 19 165/69 (101) 99 59 08/21/19 00:55 61 18 40 08/21/19 00:00 97.7 65 25 157/69 (98) 100 65 08/21/19 00:00 65 08/21/19 00:00 40 08/21/19 00:00 Mechanical Ventilator Mechanical Ventilator 08/20/19 23:46 166/73 08/20/19 23:32 63 18 40 08/20/19 23:00 60 20 159/70 (99) 100 60 08/20/19 22:00 60 25 155/69 (97) 100 60 08/20/19 21:42 58 18 40 08/20/19 21:00 57 21 163/66 (98) 100 57 08/20/19 20:00 40 08/20/19 20:00 97.6 58 24 156/65 (95) 100 58 08/20/19 20:00 Mechanical Ventilator Mechanical Ventilator 08/20/19 20:00 58 08/20/19 19:31 62 21 40 08/20/19 19:00 70 30 136/65 (88) 100 70 08/20/19 18:14 177/73 08/20/19 18:14 177/73 08/20/19 18:00 59 23 177/73 (107) 100 59 08/20/19 17:30 60 23 161/76 (104) 100 60 08/20/19 17:11 99 20 40 08/20/19 17:00 59 23 160/63 (95) 99 59 08/20/19 16:00 58 08/20/19 16:00 Mechanical Ventilator Mechanical Ventilator 08/20/19 16:00 98.2 62 26 154/65 (94) 100 62 08/20/19 16:00 40 08/20/19 15:10 100 28 40 08/20/19 15:00 56 22 152/65 (94) 100 56 08/20/19 14:30 58 31 144/72 (96) 100 58 08/20/19 14:00 58 31 138/59 (85) 100 58 I&O Intake and Output 08/20/19 08/21/19 19:00 07:00 Intake Total 1865 ml 525 ml Output Total 1000 ml 50 ml Balance 865 ml 475 ml Intake Free Water 280 ml 140 ml IV Total 155 ml Tube Feeding 350 ml 385 ml Hemodialysis 1000 ml Other 80 ml Output Urine Total 50 ml Hemodialysis UF 1000 ml # Bowel Movements 1 1 Cardiovascular: RSR, other Respiratory: clear, decreased breath sounds, other Abdomen: soft, present bowel sounds, other Extremities: no cyanosis Laboratory Tests Test 08/21/19 04:00 White Blood Count 7.5 K/UL (4.8-10.8) Red Blood Count 3.25 M/UL (4.20-5.40) L Hemoglobin 10.0 G/DL (12.0-16.0) L Hematocrit 29.8 % (37.0-47.0) L Mean Corpuscular Volume 92 FL (80-99) Mean Corpuscular Hemoglobin 30.7 PG (27.0-31.0) Mean Corpuscular Hemoglobin Concent 33.5 G/DL (32.0-36.0) Red Cell Distribution Width 18.4 % (11.6-14.8) H Platelet Count 341 K/UL (150-450) Mean Platelet Volume 7.0 FL (6.5-10.1) Neutrophils (%) (Auto) 62.6 % (45.0-75.0) Lymphocytes (%) (Auto) 30.7 % (20.0-45.0) Monocytes (%) (Auto) 5.0 % (1.0-10.0) Eosinophils (%) (Auto) 0.7 % (0.0-3.0) Basophils (%) (Auto) 1.0 % (0.0-2.0) Sodium Level 140 MMOL/L (136-145) Potassium Level 3.3 MMOL/L (3.5-5.1) L Chloride Level 102 MMOL/L (98-107) Carbon Dioxide Level 27 MMOL/L (21-32) Anion Gap 11 mmol/L (5-15) Blood Urea Nitrogen 26 mg/dL (7-18) H Creatinine 3.1 MG/DL (0.55-1.30) H Estimat Glomerular Filtration Rate 14.5 mL/min (>60) Glucose Level 129 MG/DL (74-106) H Calcium Level 8.4 MG/DL (8.5-10.1) L Phosphorus Level 2.1 MG/DL (2.5-4.9) L Magnesium Level 1.9 MG/DL (1.8-2.4) Total Bilirubin 0.5 MG/DL (0.2-1.0) Aspartate Amino Transf (AST/SGOT) 22 U/L (15-37) Alanine Aminotransferase (ALT/SGPT) 7 U/L (12-78) L Alkaline Phosphatase 167 U/L (46-116) H C-Reactive Protein, Quantitative 3.1 mg/dL (0.00-0.90) H Pro-B-Type Natriuretic Peptide > 68609 pg/mL (0-125) H Total Protein 5.5 G/DL (6.4-8.2) L Albumin 1.6 G/DL (3.4-5.0) L Globulin 3.9 g/dL Albumin/Globulin Ratio 0.4 (1.0-2.7) L Assessment Post-op Diagnosis same Plan Problems: (1) Malnutrition Assessment & Plan: DAILY ESTIMATED NEEDS: Needs based on ESRD+ HD, underweight, wound/ 39.5kg 35-40 kcals/kg 3860-8202 total kcals 1.25-1.8 g protein/kg 49-71 g total protein 20-22 mL/kg 790-869 total fluid mLs NUTRITION DIAGNOSIS: * Increased kcal and protein needs r/t underweight status, HD needs, wuond healing as evidenced by pt is underweight per guidelines, ESRD, on HD, admitted non-blanching erythema wounds @ BL heels and sacrum * Swallowing difficulty R/T dysphagia as evidenced by OPTICAL SYSTEMS ENGINEER recommends temporary nonoral feeding at this time, s/p NGT insertion, on NGT feeding-> now s/p self removal, NPO. CURRENT TF:NPO PO DIET RECOMMENDATIONS: WHEN SAFE FOR ORAL DIET -> renal/ texture per OPTICAL SYSTEMS ENGINEER ENTERAL NUTRITION RECOMMENDATIONS: W/ GI access: Nepro @ 35ml/hr x 22 hrs to provide 770ml, 1386kcal, 62g prot, 560ml free water * W/ GI access, resume TF on Nepro * Initiate Nepro @ 15ml/hr x 6 hrs, advance 10ml q 4-6 hrs as tolerated to goal rate. * Hold 1 hour before and after Synthroid med * HOB over 30 degrees/ water flush per MD. ADDITIONAL RECOMMENDATIONS: 1) Calibrated bed scale wt for accurate CBW -> daily wt monitoring Per HD record: dry wt on 2/15=39.5kg (87lbs) 2) Wound care: (W/ GI access) add Nephorivte x 1 + Balta BID 3) Monitor NPO status: without GI access at this time, s/p pulling out NGT 4) Monitor for hypoglycemia while NPO 5) Monitor for continuity of HD (2) Septic arthritis Assessment & Plan: Pt presented on admission with generalized scaly rash . pt noted to be restless and scratching at skin. Bleeding from oral mucosa noted. Joint deformity noted to R shoulder. Surgical incision approximated with 11 sutures. Erythema but no exudate,or elevation in skin temp at site of incision. Historical incision R hip that is tunneled.Small amt seropurulent exudate noted. Periwound is erythematous,but no elevation in skin temp noted. No odor noted. Non-blanching erythema noted to sacrum. Perianal area is erythematous and excoriated. L heel is boggy with non-blanching erythema. R heel is soft with non-blanching erythema. No evidence of skin breakdown to all other bony prominences. Tx.plan: Cover R shoulder with Drsg and change daily and prn. Cleanse R hip wound with Saline. Apply Therahoney.Apply Cavilon Skin Barrier periwound. Cover with Optifoam drsg. Change every 3 days and prn. Apply Moisture Barrier Paste to perianal area and buttocks. Cover Sacrum with Optifoam drsg. Change every 3 days and prn. Apply Cavilon Skin Barrier to both heels. Cover each heel with Optifoam drsg. Change every 7 days and prn. APM/ELVIA Mattress overlay. Reposition at least every 2hours or as tolerated. Off-load heels with pillow. HD cath necessary HD as renal likely will need intubation (3) Wound, open, hip or thigh with complication Assessment & Plan: slow healing will need nutritional optimization difficult ng tube peg when stable sutures removed from right shoulder comfortable wean vent may need trach (4) Abscess of right hip (5) possible septic arthritis Camilo James Aug 21, 2019 13:34
[2019-08-21] MEDS ORDERED: Potassium Phosphate 15mm/250ml 250 ML IVPB SCH ×2 (13:45→15:00)
--- NOTE | 2019-08-21 14:40 | Nephrology Progress Note ---
Assessment/Plan Problem List: (1) ESRD (end stage renal disease) on dialysis (2) Malnutrition (3) Anemia in CKD (chronic kidney disease) (4) Hypotension (5) Thrombocytopenia (6) Sepsis Assessment: klebsiella in blood Assessment -Early sepsis with shock. -Healthcare-associated pneumonia. -Severe protein-calorie malnutrition. -Thrombocytopenia. - End-stage renal disease. - History of hypertension. - Bradycardia. - HypoThyroid Plan Potassium phosphate 15 mmol 1 dose IV Was dialyzed August 19 will arrange for dialysis August 22 Blood pressure fluctuating, will start hydralazine via NG tube for blood pressure Magnesium and potassium supplement intravenously as needed Patient underwent PEG placement August 16 patient remains intubated on ventilator Discussed with RN Aim to wean from ventilator or consider tracheostomy Permacath was removed on August 12 Dialysis 08/11 Transfusion as needed Patient had hematemesis meds IV as possible Surveillance blood cultures tomorrow Plan to put the permacath back in on Thursday if cultures are negative keep BP and BS in check Inflammatory markers per orders Subjective ROS Limited/Unobtainable: Yes Objective Objective Last 24 Hour Vital Signs Date Time Temp Pulse Resp B/P (MAP) Pulse Ox O2 Delivery O2 Flow Rate FiO2 08/21/19 14:35 63 18 40 08/21/19 13:00 58 18 142/67 (92) 99 58 08/21/19 12:45 61 18 40 08/21/19 12:20 134/71 08/21/19 12:00 98.0 59 18 134/71 (92) 98 59 08/21/19 12:00 Mechanical Ventilator Mechanical Ventilator 08/21/19 12:00 40 08/21/19 11:44 60 08/21/19 11:09 100 08/21/19 11:06 73 18 40 08/21/19 11:00 66 13 150/67 (94) 100 66 08/21/19 10:00 74 19 146/86 (106) 100 74 08/21/19 09:28 163/76 08/21/19 09:00 72 26 163/76 (105) 100 72 08/21/19 08:43 68 15 4 40 08/21/19 08:00 98.2 65 22 152/62 (92) 99 65 08/21/19 08:00 Mechanical Ventilator Mechanical Ventilator 08/21/19 08:00 40 08/21/19 07:28 65 08/21/19 07:00 67 23 151/66 (94) 99 67 08/21/19 06:49 66 18 40 08/21/19 06:30 63 21 08/21/19 06:00 64 23 159/65 (96) 100 64 08/21/19 05:35 158/63 08/21/19 05:25 64 18 40 08/21/19 05:00 57 18 153/71 (98) 100 57 08/21/19 04:00 98.0 60 23 151/62 (91) 100 60 08/21/19 04:00 64 08/21/19 04:00 40 08/21/19 04:00 Mechanical Ventilator Mechanical Ventilator 08/21/19 03:21 59 18 40 08/21/19 03:00 67 21 157/67 (97) 99 67 08/21/19 02:00 59 19 157/67 (97) 99 59 08/21/19 01:07 165/69 08/21/19 01:00 59 19 165/69 (101) 99 59 08/21/19 00:55 61 18 40 08/21/19 00:00 97.7 65 25 157/69 (98) 100 65 08/21/19 00:00 65 08/21/19 00:00 40 08/21/19 00:00 Mechanical Ventilator Mechanical Ventilator 08/20/19 23:46 166/73 08/20/19 23:32 63 18 40 08/20/19 23:00 60 20 159/70 (99) 100 60 08/20/19 22:00 60 25 155/69 (97) 100 60 08/20/19 21:42 58 18 40 08/20/19 21:00 57 21 163/66 (98) 100 57 08/20/19 20:00 40 08/20/19 20:00 97.6 58 24 156/65 (95) 100 58 08/20/19 20:00 Mechanical Ventilator Mechanical Ventilator 08/20/19 20:00 58 08/20/19 19:31 62 21 40 08/20/19 19:00 70 30 136/65 (88) 100 70 08/20/19 18:14 177/73 08/20/19 18:14 177/73 08/20/19 18:00 59 23 177/73 (107) 100 59 08/20/19 17:30 60 23 161/76 (104) 100 60 08/20/19 17:11 99 20 40 08/20/19 17:00 59 23 160/63 (95) 99 59 08/20/19 16:00 58 08/20/19 16:00 Mechanical Ventilator Mechanical Ventilator 08/20/19 16:00 98.2 62 26 154/65 (94) 100 62 08/20/19 16:00 40 08/20/19 15:10 100 28 40 08/20/19 15:00 56 22 152/65 (94) 100 56 Intake and Output 08/20/19 08/21/19 19:00 07:00 Intake Total 1865 ml 525 ml Output Total 1000 ml 50 ml Balance 865 ml 475 ml Intake Free Water 280 ml 140 ml IV Total 155 ml Tube Feeding 350 ml 385 ml Hemodialysis 1000 ml Other 80 ml Output Urine Total 50 ml Hemodialysis UF 1000 ml # Bowel Movements 1 1 Laboratory Tests 08/21/19 04:00: White Blood Count 7.5, Red Blood Count 3.25L, Hemoglobin 10.0L, Hematocrit 29.8L , Mean Corpuscular Volume 92, Mean Corpuscular Hemoglobin 30.7, Mean Corpuscular Hemoglobin Concent 33.5, Red Cell Distribution Width 18.4H, Platelet Count 341, Mean Platelet Volume 7.0, Neutrophils (%) (Auto) 62.6, Lymphocytes (%) (Auto) 30.7, Monocytes (%) (Auto) 5.0, Eosinophils (%) (Auto) 0.7, Basophils (%) (Auto) 1.0, Sodium Level 140, Potassium Level 3.3L, Chloride Level 102, Carbon Dioxide Level 27, Anion Gap 11, Blood Urea Nitrogen 26H, Creatinine 3.1H, Estimat Glomerular Filtration Rate 14.5, Glucose Level 129H, Calcium Level 8.4L, Phosphorus Level 2.1L, Magnesium Level 1.9, Total Bilirubin 0.5, Aspartate Amino Transf (AST/SGOT) 22, Alanine Aminotransferase (ALT/SGPT) 7L, Alkaline Phosphatase 167H, C-Reactive Protein, Quantitative 3.1H, Pro-B- Type Natriuretic Peptide > 49427G, Total Protein 5.5L, Albumin 1.6L, Globulin 3.9, Albumin/Globulin Ratio 0.4L Height (Feet): 5 Height (Inches): 4.00 Weight (Pounds): 98 General Appearance: no apparent distress EENT: other - Bia intubated Cardiovascular: bradycardia Respiratory/Chest: decreased breath sounds Abdomen: soft Objective no change William Blackwood MD Aug 21, 2019 14:40
[2019-08-21] MEDS: HydrALAZINE 10mg Tab NG SCH ×2 (14:56→18:00)
--- NOTE | 2019-08-21 18:21 | Pulmonolgy Critical Care Note ---
Critical Care - Asmt/Plan Assessment/Plan: Pulmonary CCM Progress Note Assessment/Plan respiratory failure hemoptysis hypoxemia chronic renal failure toxic met encephalopathy severe protein calorie malnutrition cachexia left lung whiteout/collapse, improved with intubation s/p intubation PLAN care noted vent support - wean as tolerated has a 7 ETT would need to d/w family gi noted antibiotics monitor imaging for change elevated head watch fluid status nutrition as able off load ROM ICU care and management critical at present requires ICU management feeds as able medications/laboratory data/nursing notes/ICU care reviewed in detail note reviewed and edited care discussed with RN and RT ICU time spent 40 minutes coordinating care Critical Care - Subjective Interval Events: care noted on vent left lung reexpanded repeat cxr pending d/w RN and renal likely will not wean poor LOC remains critical ROS Limited/Unobtainable: Yes Condition: critical EKG Rhythm: Sinus Rhythm Residuals: minimal Tube Feeding Tolerated: yes Labs Noted Objective: Vital signs noted Intubated WDWN NAD BS equal bilaterally [id number] without MRG NABS nontender no HSM no CCE contractures poorly responsive nonfocal reviewed and edited Micro: Imaging noted Microbiology Date/Time Source Procedure Growth Status 08/14/19 05:10 Blood Blood Culture - Preliminary NO GROWTH AFTER 48 HOURS Resulted 08/14/19 04:55 Blood Blood Culture - Preliminary NO GROWTH AFTER 48 HOURS Resulted Critical Care - Objective Last 24 Hour Vital Signs Date Time Temp Pulse Resp B/P (MAP) Pulse Ox O2 Delivery O2 Flow Rate FiO2 08/21/19 17:00 61 18 148/122 (131) 100 61 08/21/19 16:54 61 18 40 08/21/19 16:00 97.5 60 18 140/67 (91) 100 60 08/21/19 16:00 40 08/21/19 16:00 Mechanical Ventilator Mechanical Ventilator 08/21/19 15:17 60 08/21/19 15:00 69 35 147/69 (95) 100 69 08/21/19 14:56 147/69 08/21/19 14:35 63 18 40 08/21/19 14:00 56 19 148/109 (122) 100 56 08/21/19 13:00 58 18 142/67 (92) 99 58 08/21/19 12:45 61 18 40 08/21/19 12:20 134/71 08/21/19 12:00 98.0 59 18 134/71 (92) 98 59 08/21/19 12:00 Mechanical Ventilator Mechanical Ventilator 08/21/19 12:00 40 08/21/19 11:44 60 08/21/19 11:09 100 08/21/19 11:06 73 18 40 08/21/19 11:00 66 13 150/67 (94) 100 66 08/21/19 10:00 74 19 146/86 (106) 100 74 08/21/19 09:28 163/76 08/21/19 09:00 72 26 163/76 (105) 100 72 08/21/19 08:43 68 15 4 40 08/21/19 08:00 98.2 65 22 152/62 (92) 99 65 08/21/19 08:00 Mechanical Ventilator Mechanical Ventilator 08/21/19 08:00 40 08/21/19 07:28 65 08/21/19 07:00 67 23 151/66 (94) 99 67 08/21/19 06:49 66 18 40 08/21/19 06:30 63 21 08/21/19 06:00 64 23 159/65 (96) 100 64 08/21/19 05:35 158/63 08/21/19 05:25 64 18 40 08/21/19 05:00 57 18 153/71 (98) 100 57 08/21/19 04:00 98.0 60 23 151/62 (91) 100 60 08/21/19 04:00 64 08/21/19 04:00 40 08/21/19 04:00 Mechanical Ventilator Mechanical Ventilator 08/21/19 03:21 59 18 40 08/21/19 03:00 67 21 157/67 (97) 99 67 08/21/19 02:00 59 19 157/67 (97) 99 59 08/21/19 01:07 165/69 08/21/19 01:00 59 19 165/69 (101) 99 59 08/21/19 00:55 61 18 40 08/21/19 00:00 97.7 65 25 157/69 (98) 100 65 08/21/19 00:00 65 08/21/19 00:00 40 08/21/19 00:00 Mechanical Ventilator Mechanical Ventilator 08/20/19 23:46 166/73 08/20/19 23:32 63 18 40 08/20/19 23:00 60 20 159/70 (99) 100 60 08/20/19 22:00 60 25 155/69 (97) 100 60 08/20/19 21:42 58 18 40 08/20/19 21:00 57 21 163/66 (98) 100 57 08/20/19 20:00 40 08/20/19 20:00 97.6 58 24 156/65 (95) 100 58 08/20/19 20:00 Mechanical Ventilator Mechanical Ventilator 08/20/19 20:00 58 08/20/19 19:31 62 21 40 08/20/19 19:00 70 30 136/65 (88) 100 70 Accucheck: 105 Critical Care - Subjective ROS Limited/Unobtainable: No FI02: 40 Vent Support Breath Rate: 18 Vent Support Mode: AC Sputum Amount: Scant PEEP: 5.0 PIP: 20 Tube Feeding Amount: 35 I&O: Intake and Output 08/20/19 08/21/19 19:00 07:00 Intake Total 1865 ml 525 ml Output Total 1000 ml 50 ml Balance 865 ml 475 ml Intake Free Water 280 ml 140 ml IV Total 155 ml Tube Feeding 350 ml 385 ml Hemodialysis 1000 ml Other 80 ml Output Urine Total 50 ml Hemodialysis UF 1000 ml # Bowel Movements 1 1 ET-Tube: 7.0 ET Position: 19 Abel Graham MD Aug 21, 2019 18:21
[2019-08-21] MEDS: Dyna-Hex 2% Top Sol 2oz TOPIC SCH (20:55)
[2019-08-22] VITALS (24 sets, daily range): BP systolic 129–175; BP diastolic 62–120
[2019-08-22] MEDS: HydrALAZINE 10mg Tab NG SCH ×4 (00:53→18:09)
[2019-08-22] MEDS: Nitroglycerin 2% oint pkt TOPIC SCH ×4 (00:54→18:09)
--- NOTE | 2019-08-22 07:16 | General Progress Note ---
Assessment/Plan Problem List: (1) Hypothyroid ICD Codes: E03.9 - Hypothyroidism, unspecified SNOMED: 39841757 (2) ESRD (end stage renal disease) on dialysis ICD Codes: N18.6 - End stage renal disease; Z99.2 - Dependence on renal dialysis SNOMED: 384260484 (3) Hypotension ICD Codes: I95.9 - Hypotension, unspecified SNOMED: 15220559 Qualifiers: Qualified Codes: I95.3 - Hypotension of hemodialysis (4) Pneumonia ICD Codes: J18.9 - Pneumonia, unspecified organism SNOMED: 391433643 Qualifiers: Qualified Codes: J18.9 - Pneumonia, unspecified organism (5) Diabetes mellitus ICD Codes: E11.9 - Type 2 diabetes mellitus without complications SNOMED: 60824596 Status: stable, not improved, unchanged, deteriorating Assessment/Plan: TSH improved and free T4 is higher continue Levothyroxine 75 IV daily repeat thyroid function this week Subjective ROS Limited/Unobtainable: Yes Allergies: Coded Allergies: VANCOMYCIN (Unverified Allergy, Unknown, 08/02/19) Subjective events noted interval notes reviewed Item Value Date Time Bedside Blood Glucose 137 mg/dl H 08/22/19 0600 Bedside Blood Glucose 96 mg/dl 08/22/19 0000 Bedside Blood Glucose 135 mg/dl H 08/21/19 1800 Bedside Blood Glucose 105 mg/dl 08/21/19 1200 Bedside Blood Glucose 131 mg/dl H 08/21/19 0600 Bedside Blood Glucose 113 mg/dl 08/21/19 0000 Objective Last 24 Hour Vital Signs Date Time Temp Pulse Resp B/P (MAP) Pulse Ox O2 Delivery O2 Flow Rate FiO2 08/22/19 06:30 55 18 08/22/19 06:19 169/111 08/22/19 06:18 169/111 08/22/19 06:00 59 20 140/87 (104) 100 08/22/19 05:30 59 18 40 08/22/19 05:00 67 22 150/78 (102) 100 08/22/19 04:00 40 08/22/19 04:00 69 32 133/84 (100) 100 08/22/19 04:00 61 08/22/19 04:00 Mechanical Ventilator Mechanical Ventilator 08/22/19 03:14 60 18 40 08/22/19 03:00 58 18 141/65 (90) 100 08/22/19 02:00 97.8 63 21 175/77 (109) 100 08/22/19 01:00 62 21 139/75 (96) 100 08/22/19 00:58 62 18 40 08/22/19 00:54 160/102 08/22/19 00:53 160/102 08/22/19 00:00 58 18 144/68 (93) 100 08/22/19 00:00 59 08/22/19 00:00 Mechanical Ventilator Mechanical Ventilator 08/21/19 23:45 60 18 100 Mechanical Ventilator 40 08/21/19 23:30 65 18 40 08/21/19 23:00 58 18 140/64 (89) 100 08/21/19 22:00 59 18 154/69 (97) 100 08/21/19 21:15 60 18 40 08/21/19 21:00 60 18 147/92 (110) 100 08/21/19 20:00 97.8 58 18 143/63 (89) 100 08/21/19 20:00 40 08/21/19 20:00 Mechanical Ventilator Mechanical Ventilator 08/21/19 20:00 58 08/21/19 19:30 58 18 40 08/21/19 19:00 59 18 152/66 (94) 100 59 08/21/19 18:35 145/67 08/21/19 18:00 59 18 123/67 (85) 100 59 08/21/19 18:00 123/67 08/21/19 17:00 61 18 148/122 (131) 100 61 08/21/19 16:54 61 18 40 08/21/19 16:00 97.5 60 18 140/67 (91) 100 60 08/21/19 16:00 40 08/21/19 16:00 Mechanical Ventilator Mechanical Ventilator 08/21/19 15:17 60 08/21/19 15:00 69 35 147/69 (95) 100 69 08/21/19 14:56 147/69 08/21/19 14:35 63 18 40 08/21/19 14:00 56 19 148/109 (122) 100 56 08/21/19 13:00 58 18 142/67 (92) 99 58 08/21/19 12:45 61 18 40 08/21/19 12:20 134/71 08/21/19 12:00 98.0 59 18 134/71 (92) 98 59 08/21/19 12:00 Mechanical Ventilator Mechanical Ventilator 08/21/19 12:00 40 08/21/19 11:44 60 08/21/19 11:09 100 08/21/19 11:06 73 18 40 08/21/19 11:00 66 13 150/67 (94) 100 66 08/21/19 10:00 74 19 146/86 (106) 100 74 08/21/19 09:28 163/76 08/21/19 09:00 72 26 163/76 (105) 100 72 08/21/19 08:43 68 15 4 40 08/21/19 08:00 98.2 65 22 152/62 (92) 99 65 08/21/19 08:00 Mechanical Ventilator Mechanical Ventilator 08/21/19 08:00 40 08/21/19 07:28 65 Intake and Output 08/21/19 08/22/19 19:00 07:00 Intake Total 774.79 ml 405 ml Output Total 275 ml 100 ml Balance 499.79 ml 305 ml Intake Free Water 100 ml IV Total 324.79 ml 55 ml Tube Feeding 350 ml 350 ml Output Urine Total 275 ml 100 ml # Bowel Movements 5 1 Height (Feet): 5 Height (Inches): 4.00 Weight (Pounds): 98 General Appearance: lethargic Neck: normal alignment Cardiovascular: normal rate Respiratory/Chest: decreased breath sounds Abdomen: normal bowel sounds Objective Current Medications Medications (Trade) Dose Ordered Sig/Javier Route PRN Reason Start Time Stop Time Status Last Admin Dose Admin Albuterol/ Ipratropium (Albuterol/ Ipratropium) 3 ml Q4H PRN HHN Shortness of Breath 08/19/19 07:45 08/24/19 07:44 Atropine Sulfate (Atropine) 1 mg Q4H PRN IVP Per rx protocol 08/13/19 08:30 09/12/19 08:29 Chlorhexidine Gluconate (Nae-Hex 2%) 1 applic DAILY@1999 TOPIC 08/15/19 20:00 09/14/19 19:59 08/21/19 20:55 Dextrose (Dextrose 50%) 50 ml Q30M PRN IV Hypoglycemia 08/11/19 10:30 09/04/19 17:44 08/18/19 12:36 Diphenhydramine HCl (Benadryl) 50 mg Q4H PRN IVP Itching 08/09/19 14:30 09/08/19 14:29 08/13/19 02:39 Epoetin Thomas (Epoetin Thomas(ESRD on dialysis)) 4,000 unit THU- SUBQ 08/12/19 21:00 09/11/19 20:59 08/19/19 20:33 Fluconazole/ Sodium Chloride 100 ml @ 100 mls/hr Q24H IV 08/18/19 13:00 08/29/19 23:59 08/21/19 12:57 Hydralazine HCl (Apresoline) 10 mg Q4H PRN IV For High Blood Pressure 08/18/19 12:44 09/17/19 12:43 08/21/19 09:28 Hydralazine HCl (Apresoline) 10 mg Q6HR NG 08/21/19 14:45 09/20/19 14:44 08/22/19 06:18 Lansoprazole (Prevacid) 30 mg BID GT 08/19/19 09:00 09/18/19 08:59 08/21/19 18:35 Levothyroxine Sodium (Synthroid) 75 mcg DAILY@0630 ORAL 08/22/19 06:30 09/21/19 06:29 08/22/19 06:19 Lorazepam (Ativan 2mg/ml 1ml) 1 mg Q3H PRN IV For Anxiety 08/17/19 11:30 08/24/19 11:29 Meropenem 500 mg/ Sodium Chloride 55 ml @ 110 mls/hr EVERY 12 HOURS IVPB 08/18/19 21:00 08/23/19 20:59 08/21/19 21:08 Metoclopramide HCl (Reglan) 5 mg Q8H PRN IVP Nausea & Vomiting 08/09/19 12:39 09/08/19 12:38 Nitroglycerin (Nitro-Bid) 1 inch Q6HR TOPIC 08/09/19 12:39 09/08/19 12:38 08/22/19 06:19 Antonio Jacome MD Aug 22, 2019 07:16
--- NOTE | 2019-08-22 07:30 | Progress Note ---
DATE: 08/21/2019 SUBJECTIVE: The patient remains on ventilator support. Weaning efforts ongoing. The patient has nutrition by feeding tube. Monitored rhythm sinus. OBJECTIVE: VITAL SIGNS: Blood pressure 144/68 earlier, now 160/102; heart rate 50s and 60s. LUNGS: Bilateral breath sounds. Thin secretions. CARDIAC: Regular rhythm. Slow rate. Normal S1, S2. ABDOMEN: Soft. G-tube intact. EXTREMITIES: Trace edema. LABORATORY DATA: White count 7.5, hemoglobin 10. Sodium 140, potassium 3.3, BUN 26, creatinine 3.1. Phosphorus 2.1. Albumin 1.6. Blood culture positive for Hailee. IMPRESSION: 1. Critical and guarded. 2. Respiratory failure. 3. Fungemia. 4. End-stage renal disease. 5. Acute on chronic diastolic congestive heart failure. 6. Anemia due to chronic kidney disease. 7. Sinus node disease with bradycardia. PLAN OF CARE: 1. Hemodialysis with additional ultrafiltration. 2. Monitor for clinically significant bradyarrhythmias. 3. Avoid increased potassium level. 4. Titrate antihypertensive regimen. 5. May ultimately need trach. Abel Stubbs M.D. DR: ADAM JOB#: [id number] CC:
[2019-08-22] MEDS: Meropenem 500 MG in NS 55 ML IVPB SCH ×2 (08:46→20:59)
[2019-08-22 08:55] LABS: BASOPHILS % (AUTO) 1.7 % (0.0-2.0); EOSINOPHILS % (AUTO) 0.9 % (0.0-3.0); HEMATOCRIT 28.7 % (37.0-47.0); HEMOGLOBIN 9.7 G/DL (12.0-16.0); LYMPHOCYTES % (AUTO) 38.3 % (20.0-45.0); MEAN CORPUSCULAR VOLUME 91 FL (80-99); NEUTROPHILS % (AUTO) 53.2 % (45.0-75.0); PLATELET COUNT 316 K/UL (150-450); RED BLOOD COUNT 3.15 M/UL (4.20-5.40); RED CELL DISTRIBUTION WIDTH 18.3 % (11.6-14.8); WHITE BLOOD COUNT 5.9 K/UL (4.8-10.8)
--- NOTE | 2019-08-22 09:04 | Critical Care Progress Note ---
Assessment/Plan Assessment/Plan respiratory failure hemoptysis resolved hypoxemia chronic renal failure toxic met encephalopathy severe protein calorie malnutrition cachexia left lung whiteout/collapse, improved with intubation s/p intubation anemia pulmonary edema with elevated BNP PLAN care noted vent support has a 7 ETT and would be difficult to wean would need to d/w family as to trach for best weaning and senior care care as still full code keep negative antibiotics monitor imaging for change elevated head watch fluid status nutrition as able off load ROM ICU care and management critical at present requires ICU management and close follow up care feeds as able medications/laboratory data/nursing notes/ICU care reviewed in detail note reviewed and edited care discussed with RN and RT ICU time spent >40 minutes coordinating care Critical Care - Subjective Interval Events: on vent weekend events reviewed no distress reduced LOC ICU care noted and reviewed ROS Limited/Unobtainable: Yes Condition: critical EKG Rhythm: Sinus Rhythm Residuals: minimal Tube Feeding Tolerated: yes I&O: Intake and Output 08/21/19 08/22/19 19:00 07:00 Intake Total 837.29 ml 440 ml Output Total 275 ml 100 ml Balance 562.29 ml 340 ml Intake Free Water 100 ml IV Total 387.29 ml 55 ml Tube Feeding 350 ml 385 ml Output Urine Total 275 ml 100 ml # Bowel Movements 5 1 Critical Care - Objective ET-Tube: 7.0 ET Position: 19 Last 24 Hour Vital Signs Date Time Temp Pulse Resp B/P (MAP) Pulse Ox O2 Delivery O2 Flow Rate FiO2 08/22/19 08:00 55 18 154/77 (102) 100 55 08/22/19 08:00 40 08/22/19 08:00 Mechanical Ventilator Mechanical Ventilator 08/22/19 07:33 57 18 40 08/22/19 07:00 57 20 133/98 (110) 100 08/22/19 06:30 55 18 08/22/19 06:19 169/111 08/22/19 06:18 169/111 08/22/19 06:00 59 20 140/87 (104) 100 08/22/19 05:30 59 18 40 08/22/19 05:00 67 22 150/78 (102) 100 08/22/19 04:00 40 08/22/19 04:00 69 32 133/84 (100) 100 08/22/19 04:00 61 08/22/19 04:00 Mechanical Ventilator Mechanical Ventilator 08/22/19 03:14 60 18 40 08/22/19 03:00 58 18 141/65 (90) 100 08/22/19 02:00 97.8 63 21 175/77 (109) 100 08/22/19 01:00 62 21 139/75 (96) 100 08/22/19 00:58 62 18 40 08/22/19 00:54 160/102 08/22/19 00:53 160/102 08/22/19 00:00 58 18 144/68 (93) 100 08/22/19 00:00 59 08/22/19 00:00 Mechanical Ventilator Mechanical Ventilator 08/21/19 23:45 60 18 100 Mechanical Ventilator 40 08/21/19 23:30 65 18 40 08/21/19 23:00 58 18 140/64 (89) 100 08/21/19 22:00 59 18 154/69 (97) 100 08/21/19 21:15 60 18 40 08/21/19 21:00 60 18 147/92 (110) 100 08/21/19 20:00 97.8 58 18 143/63 (89) 100 08/21/19 20:00 40 08/21/19 20:00 Mechanical Ventilator Mechanical Ventilator 08/21/19 20:00 58 08/21/19 19:30 58 18 40 08/21/19 19:00 59 18 152/66 (94) 100 59 08/21/19 18:35 145/67 08/21/19 18:00 59 18 123/67 (85) 100 59 08/21/19 18:00 123/67 08/21/19 17:00 61 18 148/122 (131) 100 61 08/21/19 16:54 61 18 40 08/21/19 16:00 97.5 60 18 140/67 (91) 100 60 08/21/19 16:00 40 08/21/19 16:00 Mechanical Ventilator Mechanical Ventilator 08/21/19 15:17 60 08/21/19 15:00 69 35 147/69 (95) 100 69 08/21/19 14:56 147/69 08/21/19 14:35 63 18 40 08/21/19 14:00 56 19 148/109 (122) 100 56 08/21/19 13:00 58 18 142/67 (92) 99 58 08/21/19 12:45 61 18 40 08/21/19 12:20 134/71 08/21/19 12:00 98.0 59 18 134/71 (92) 98 59 08/21/19 12:00 Mechanical Ventilator Mechanical Ventilator 08/21/19 12:00 40 08/21/19 11:44 60 08/21/19 11:09 100 08/21/19 11:06 73 18 40 08/21/19 11:00 66 13 150/67 (94) 100 66 08/21/19 10:00 74 19 146/86 (106) 100 74 08/21/19 09:28 163/76 Labs: Labs Test 08/20/19 05:00 08/21/19 04:00 08/22/19 08:30 White Blood Count 7.9 K/UL (4.8-10.8) 7.5 K/UL (4.8-10.8) 5.9 K/UL (4.8-10.8) Red Blood Count 3.42 M/UL (4.20-5.40) 3.25 M/UL (4.20-5.40) 3.15 M/UL (4.20-5.40) Hemoglobin 10.5 G/DL (12.0-16.0) 10.0 G/DL (12.0-16.0) 9.7 G/DL (12.0-16.0) Hematocrit 31.4 % (37.0-47.0) 29.8 % (37.0-47.0) 28.7 % (37.0-47.0) Mean Corpuscular Volume 92 FL (80-99) 92 FL (80-99) 91 FL (80-99) Mean Corpuscular Hemoglobin 30.8 PG (27.0-31.0) 30.7 PG (27.0-31.0) 30.8 PG (27.0-31.0) Mean Corpuscular Hemoglobin Concent 33.5 G/DL (32.0-36.0) 33.5 G/DL (32.0-36.0) 33.8 G/DL (32.0-36.0) Red Cell Distribution Width 18.4 % (11.6-14.8) 18.4 % (11.6-14.8) 18.3 % (11.6-14.8) Platelet Count 367 K/UL (150-450) 341 K/UL (150-450) 316 K/UL (150-450) Mean Platelet Volume 6.8 FL (6.5-10.1) 7.0 FL (6.5-10.1) 7.1 FL (6.5-10.1) Neutrophils (%) (Auto) 57.8 % (45.0-75.0) 62.6 % (45.0-75.0) 53.2 % (45.0-75.0) Lymphocytes (%) (Auto) 35.5 % (20.0-45.0) 30.7 % (20.0-45.0) 38.3 % (20.0-45.0) Monocytes (%) (Auto) 5.2 % (1.0-10.0) 5.0 % (1.0-10.0) 6.0 % (1.0-10.0) Eosinophils (%) (Auto) 0.4 % (0.0-3.0) 0.7 % (0.0-3.0) 0.9 % (0.0-3.0) Basophils (%) (Auto) 1.0 % (0.0-2.0) 1.0 % (0.0-2.0) 1.7 % (0.0-2.0) Prothrombin Time 11.0 SEC (9.30-11.50) Prothromb Time International Ratio 1.0 (0.9-1.1) Activated Partial Thromboplast Time 30 SEC (23-33) Sodium Level 142 MMOL/L (136-145) 140 MMOL/L (136-145) Potassium Level 3.5 MMOL/L (3.5-5.1) 3.3 MMOL/L (3.5-5.1) Chloride Level 105 MMOL/L (98-107) 102 MMOL/L (98-107) Carbon Dioxide Level 27 MMOL/L (21-32) 27 MMOL/L (21-32) Anion Gap 10 mmol/L (5-15) 11 mmol/L (5-15) Blood Urea Nitrogen 35 mg/dL (7-18) 26 mg/dL (7-18) Creatinine 4.0 MG/DL (0.55-1.30) 3.1 MG/DL (0.55-1.30) Estimat Glomerular Filtration Rate 10.8 mL/min (>60) 14.5 mL/min (>60) Glucose Level 145 MG/DL (74-106) 129 MG/DL (74-106) Calcium Level 8.5 MG/DL (8.5-10.1) 8.4 MG/DL (8.5-10.1) Phosphorus Level 3.0 MG/DL (2.5-4.9) 2.1 MG/DL (2.5-4.9) Magnesium Level 2.2 MG/DL (1.8-2.4) 1.9 MG/DL (1.8-2.4) Total Bilirubin 0.4 MG/DL (0.2-1.0) 0.5 MG/DL (0.2-1.0) Aspartate Amino Transf (AST/SGOT) 18 U/L (15-37) 22 U/L (15-37) Alanine Aminotransferase (ALT/SGPT) 13 U/L (12-78) 7 U/L (12-78) Alkaline Phosphatase 184 U/L (46-116) 167 U/L (46-116) C-Reactive Protein, Quantitative 2.7 mg/dL (0.00-0.90) 3.1 mg/dL (0.00-0.90) Pro-B-Type Natriuretic Peptide > 3500 pg/mL (0-125) > 12362 pg/mL (0-125) Total Protein 5.4 G/DL (6.4-8.2) 5.5 G/DL (6.4-8.2) Albumin 1.3 G/DL (3.4-5.0) 1.6 G/DL (3.4-5.0) Globulin 4.1 g/dL 3.9 g/dL Albumin/Globulin Ratio 0.3 (1.0-2.7) 0.4 (1.0-2.7) Objective: WDWN NAD intubated reduced breath sounds bilaterally without rhonchi or wheeze Q3M2CCM without MRG NABS nontender no HSM no CCE contractures feeding tube in place no distention poorly responsive nonfocal cachectic reviewed and edited Accucheck: 137 Malcolm Cruz MD Aug 22, 2019 09:04
[2019-08-22 09:11] LABS: ANION GAP 10 mmol/L (5-15); BLOOD UREA NITROGEN 34 mg/dL (7-18); CALCIUM 8.4 MG/DL (8.5-10.1); CARBON DIOXIDE 25 MMOL/L (21-32); CHLORIDE 103 MMOL/L (98-107); CREATININE 3.5 MG/DL (0.55-1.30); POTASSIUM 3.7 MMOL/L (3.5-5.1); SODIUM 138 MMOL/L (136-145)
[2019-08-22 09:15] LABS: ALANINE AMINOTRANSFERASE 8 U/L (12-78); ALBUMIN 1.2 G/DL (3.4-5.0); ALBUMIN/GLOBULIN RATIO 0.3 (1.0-2.7); ALKALINE PHOSPHATASE 151 U/L (46-116); ASPARTATE AMINO TRANSFERASE 16 U/L (15-37); BILIRUBIN,TOTAL 0.5 MG/DL (0.2-1.0)
[2019-08-22 09:38] LABS: PHOSPHORUS 3.4 MG/DL (2.5-4.9)
--- NOTE | 2019-08-22 10:58 | Infectious Diseases Prog Note ---
Assessment/Plan Assessment/Plan antibiotics : meropenem, fluconazole A 1. jarad albicans fungemia 2. right shoulder septic arthritis with staph aureus s/p rx 3. renal failure 4. thrombocytopenia resolved 7. diabetes mellitus 8. hypertension 9. respiratory failure P 1. continue meropenem 2. continue fluconazole 7 more days 3. will follow up cultures Subjective ROS Limited/Unobtainable: Yes Allergies: Coded Allergies: VANCOMYCIN (Unverified Allergy, Unknown, 08/02/19) Objective Vital Signs Last 24 Hour Vital Signs Date Time Temp Pulse Resp B/P (MAP) Pulse Ox O2 Delivery O2 Flow Rate FiO2 08/22/19 10:00 70 24 135/96 (109) 99 70 08/22/19 09:56 71 18 4 40 08/22/19 09:22 168/71 08/22/19 09:00 98.0 56 18 161/70 (100) 100 56 08/22/19 08:00 55 18 154/77 (102) 100 55 08/22/19 08:00 40 08/22/19 08:00 Mechanical Ventilator Mechanical Ventilator 08/22/19 07:44 56 08/22/19 07:33 57 18 40 08/22/19 07:00 57 20 133/98 (110) 100 08/22/19 06:30 55 18 08/22/19 06:19 169/111 08/22/19 06:18 169/111 08/22/19 06:00 59 20 140/87 (104) 100 08/22/19 05:30 59 18 40 08/22/19 05:00 67 22 150/78 (102) 100 08/22/19 04:00 40 08/22/19 04:00 69 32 133/84 (100) 100 08/22/19 04:00 61 08/22/19 04:00 Mechanical Ventilator Mechanical Ventilator 08/22/19 03:14 60 18 40 08/22/19 03:00 58 18 141/65 (90) 100 08/22/19 02:00 97.8 63 21 175/77 (109) 100 08/22/19 01:00 62 21 139/75 (96) 100 08/22/19 00:58 62 18 40 08/22/19 00:54 160/102 08/22/19 00:53 160/102 08/22/19 00:00 58 18 144/68 (93) 100 08/22/19 00:00 59 08/22/19 00:00 Mechanical Ventilator Mechanical Ventilator 08/21/19 23:45 60 18 100 Mechanical Ventilator 40 08/21/19 23:30 65 18 40 08/21/19 23:00 58 18 140/64 (89) 100 08/21/19 22:00 59 18 154/69 (97) 100 08/21/19 21:15 60 18 40 08/21/19 21:00 60 18 147/92 (110) 100 08/21/19 20:00 97.8 58 18 143/63 (89) 100 08/21/19 20:00 40 08/21/19 20:00 Mechanical Ventilator Mechanical Ventilator 08/21/19 20:00 58 08/21/19 19:30 58 18 40 08/21/19 19:00 59 18 152/66 (94) 100 59 08/21/19 18:35 145/67 08/21/19 18:00 59 18 123/67 (85) 100 59 08/21/19 18:00 123/67 08/21/19 17:00 61 18 148/122 (131) 100 61 08/21/19 16:54 61 18 40 08/21/19 16:00 97.5 60 18 140/67 (91) 100 60 08/21/19 16:00 40 08/21/19 16:00 Mechanical Ventilator Mechanical Ventilator 08/21/19 15:17 60 08/21/19 15:00 69 35 147/69 (95) 100 69 08/21/19 14:56 147/69 08/21/19 14:35 63 18 40 08/21/19 14:00 56 19 148/109 (122) 100 56 08/21/19 13:00 58 18 142/67 (92) 99 58 08/21/19 12:45 61 18 40 08/21/19 12:20 134/71 08/21/19 12:00 98.0 59 18 134/71 (92) 98 59 08/21/19 12:00 Mechanical Ventilator Mechanical Ventilator 08/21/19 12:00 40 08/21/19 11:44 60 08/21/19 11:09 100 08/21/19 11:06 73 18 40 08/21/19 11:00 66 13 150/67 (94) 100 66 Height (Feet): 5 Height (Inches): 4.00 Weight (Pounds): 99 HEENT: other - intubated Respiratory/Chest: lungs clear Cardiovascular: normal rate, regular rhythm, no gallop/murmur Abdomen: soft, non tender, other - GT Extremities: other - + edema Laboratory Tests Test 08/22/19 08:30 White Blood Count 5.9 K/UL (4.8-10.8) Red Blood Count 3.15 M/UL (4.20-5.40) L Hemoglobin 9.7 G/DL (12.0-16.0) L Hematocrit 28.7 % (37.0-47.0) L Mean Corpuscular Volume 91 FL (80-99) Mean Corpuscular Hemoglobin 30.8 PG (27.0-31.0) Mean Corpuscular Hemoglobin Concent 33.8 G/DL (32.0-36.0) Red Cell Distribution Width 18.3 % (11.6-14.8) H Platelet Count 316 K/UL (150-450) Mean Platelet Volume 7.1 FL (6.5-10.1) Neutrophils (%) (Auto) 53.2 % (45.0-75.0) Lymphocytes (%) (Auto) 38.3 % (20.0-45.0) Monocytes (%) (Auto) 6.0 % (1.0-10.0) Eosinophils (%) (Auto) 0.9 % (0.0-3.0) Basophils (%) (Auto) 1.7 % (0.0-2.0) Sodium Level 138 MMOL/L (136-145) Potassium Level 3.7 MMOL/L (3.5-5.1) Chloride Level 103 MMOL/L (98-107) Carbon Dioxide Level 25 MMOL/L (21-32) Anion Gap 10 mmol/L (5-15) Blood Urea Nitrogen 34 mg/dL (7-18) H Creatinine 3.5 MG/DL (0.55-1.30) H Estimat Glomerular Filtration Rate 12.6 mL/min (>60) Glucose Level 120 MG/DL (74-106) H Calcium Level 8.4 MG/DL (8.5-10.1) L Phosphorus Level 3.4 MG/DL (2.5-4.9) Magnesium Level 1.9 MG/DL (1.8-2.4) Total Bilirubin 0.5 MG/DL (0.2-1.0) Aspartate Amino Transf (AST/SGOT) 16 U/L (15-37) Alanine Aminotransferase (ALT/SGPT) 8 U/L (12-78) L Alkaline Phosphatase 151 U/L (46-116) H Total Protein 5.0 G/DL (6.4-8.2) L Albumin 1.2 G/DL (3.4-5.0) L Globulin 3.8 g/dL Albumin/Globulin Ratio 0.3 (1.0-2.7) L Current Medications Medications (Trade) Dose Ordered Sig/Javier Route PRN Reason Start Time Stop Time Status Last Admin Dose Admin Albuterol/ Ipratropium (Albuterol/ Ipratropium) 3 ml Q4H PRN HHN Shortness of Breath 08/19/19 07:45 08/24/19 07:44 Atropine Sulfate (Atropine) 1 mg Q4H PRN IVP Per rx protocol 08/13/19 08:30 09/12/19 08:29 Chlorhexidine Gluconate (Nae-Hex 2%) 1 applic DAILY@2000 TOPIC 08/15/19 20:00 09/14/19 19:59 08/21/19 20:55 Dextrose (Dextrose 50%) 50 ml Q30M PRN IV Hypoglycemia 08/11/19 10:30 09/04/19 17:44 08/18/19 12:36 Diphenhydramine HCl (Benadryl) 50 mg Q4H PRN IVP Itching 08/09/19 14:30 09/08/19 14:29 08/13/19 02:39 Epoetin Thomas (Epoetin Thomas(ESRD on dialysis)) 4,000 unit THU-THU-THU SUBQ 08/12/19 21:00 09/11/19 20:59 08/19/19 20:33 Fluconazole/ Sodium Chloride 100 ml @ 100 mls/hr Q24H IV 08/18/19 13:00 08/29/19 23:59 08/21/19 12:57 Hydralazine HCl (Apresoline) 10 mg Q4H PRN IV For High Blood Pressure 08/18/19 12:44 09/17/19 12:43 08/22/19 09:22 Hydralazine HCl (Apresoline) 10 mg Q6HR NG 08/21/19 14:45 09/20/19 14:44 08/22/19 06:18 Lansoprazole (Prevacid) 30 mg BID GT 08/19/19 09:00 09/18/19 08:59 08/22/19 08:46 Levothyroxine Sodium (Synthroid) 75 mcg DAILY@0630 ORAL 08/22/19 06:30 09/21/19 06:29 08/22/19 06:19 Lorazepam (Ativan 2mg/ml 1ml) 1 mg Q3H PRN IV For Anxiety 08/17/19 11:30 08/24/19 11:29 Meropenem 500 mg/ Sodium Chloride 55 ml @ 110 mls/hr EVERY 12 HOURS IVPB 08/18/19 21:00 08/23/19 20:59 08/22/19 08:46 Metoclopramide HCl (Reglan) 5 mg Q8H PRN IVP Nausea & Vomiting 08/09/19 12:39 09/08/19 12:38 Nitroglycerin (Nitro-Bid) 1 inch Q6HR TOPIC 08/09/19 12:39 09/08/19 12:38 08/22/19 06:19 Melissa Solares MD Aug 22, 2019 10:58
--- NOTE | 2019-08-22 12:29 | Nephrology Progress Note ---
Assessment/Plan Problem List: (1) ESRD (end stage renal disease) on dialysis (2) Malnutrition (3) Anemia in CKD (chronic kidney disease) (4) Hypotension (5) Thrombocytopenia (6) Sepsis Assessment: klebsiella in blood Assessment -Early sepsis with shock. -Healthcare-associated pneumonia. -Severe protein-calorie malnutrition. -Thrombocytopenia. - End-stage renal disease. - History of hypertension. - Bradycardia. - HypoThyroid Plan Was dialyzed August 19 will arrange for dialysis August 22 Blood pressure fluctuating, will start hydralazine via NG tube for blood pressure Magnesium and potassium supplement intravenously as needed Patient underwent PEG placement August 16 patient remains intubated on ventilator Discussed with RN Aim to wean from ventilator or consider tracheostomy Permacath was removed on August 12 Dialysis 08/11 Transfusion as needed Patient had hematemesis meds IV as possible Surveillance blood cultures tomorrow Plan to put the permacath back in on Thursday if cultures are negative keep BP and BS in check Inflammatory markers per orders Subjective ROS Limited/Unobtainable: Yes Objective Objective Last 24 Hour Vital Signs Date Time Temp Pulse Resp B/P (MAP) Pulse Ox O2 Delivery O2 Flow Rate FiO2 08/22/19 12:02 136/88 08/22/19 12:01 136/88 08/22/19 12:00 97.8 67 28 156/89 (111) 99 67 08/22/19 12:00 40 08/22/19 12:00 Mechanical Ventilator Mechanical Ventilator 08/22/19 11:00 61 18 136/62 (86) 100 61 08/22/19 10:00 70 24 135/96 (109) 99 70 08/22/19 09:56 71 18 4 40 08/22/19 09:22 168/71 08/22/19 09:00 98.0 56 18 161/70 (100) 100 56 08/22/19 08:00 55 18 154/77 (102) 100 55 08/22/19 08:00 40 08/22/19 08:00 Mechanical Ventilator Mechanical Ventilator 08/22/19 07:44 56 08/22/19 07:33 57 18 40 08/22/19 07:00 57 20 133/98 (110) 100 08/22/19 06:30 55 18 08/22/19 06:19 169/111 08/22/19 06:18 169/111 08/22/19 06:00 59 20 140/87 (104) 100 08/22/19 05:30 59 18 40 08/22/19 05:00 67 22 150/78 (102) 100 08/22/19 04:00 40 08/22/19 04:00 69 32 133/84 (100) 100 08/22/19 04:00 61 08/22/19 04:00 Mechanical Ventilator Mechanical Ventilator 08/22/19 03:14 60 18 40 08/22/19 03:00 58 18 141/65 (90) 100 08/22/19 02:00 97.8 63 21 175/77 (109) 100 08/22/19 01:00 62 21 139/75 (96) 100 08/22/19 00:58 62 18 40 08/22/19 00:54 160/102 08/22/19 00:53 160/102 08/22/19 00:00 58 18 144/68 (93) 100 08/22/19 00:00 59 08/22/19 00:00 Mechanical Ventilator Mechanical Ventilator 08/21/19 23:45 60 18 100 Mechanical Ventilator 40 08/21/19 23:30 65 18 40 08/21/19 23:00 58 18 140/64 (89) 100 08/21/19 22:00 59 18 154/69 (97) 100 08/21/19 21:15 60 18 40 08/21/19 21:00 60 18 147/92 (110) 100 08/21/19 20:00 97.8 58 18 143/63 (89) 100 08/21/19 20:00 40 08/21/19 20:00 Mechanical Ventilator Mechanical Ventilator 08/21/19 20:00 58 08/21/19 19:30 58 18 40 08/21/19 19:00 59 18 152/66 (94) 100 59 08/21/19 18:35 145/67 08/21/19 18:00 59 18 123/67 (85) 100 59 08/21/19 18:00 123/67 08/21/19 17:00 61 18 148/122 (131) 100 61 08/21/19 16:54 61 18 40 08/21/19 16:00 97.5 60 18 140/67 (91) 100 60 08/21/19 16:00 40 08/21/19 16:00 Mechanical Ventilator Mechanical Ventilator 08/21/19 15:17 60 08/21/19 15:00 69 35 147/69 (95) 100 69 08/21/19 14:56 147/69 08/21/19 14:35 63 18 40 08/21/19 14:00 56 19 148/109 (122) 100 56 08/21/19 13:00 58 18 142/67 (92) 99 58 08/21/19 12:45 61 18 40 Intake and Output 08/21/19 08/22/19 19:00 07:00 Intake Total 837.29 ml 440 ml Output Total 275 ml 100 ml Balance 562.29 ml 340 ml Intake Free Water 100 ml IV Total 387.29 ml 55 ml Tube Feeding 350 ml 385 ml Output Urine Total 275 ml 100 ml # Bowel Movements 5 1 Laboratory Tests 08/22/19 08:30: White Blood Count 5.9, Red Blood Count 3.15L, Hemoglobin 9.7L, Hematocrit 28.7L , Mean Corpuscular Volume 91, Mean Corpuscular Hemoglobin 30.8, Mean Corpuscular Hemoglobin Concent 33.8, Red Cell Distribution Width 18.3H, Platelet Count 316, Mean Platelet Volume 7.1, Neutrophils (%) (Auto) 53.2, Lymphocytes (%) (Auto) 38.3, Monocytes (%) (Auto) 6.0, Eosinophils (%) (Auto) 0.9, Basophils (%) (Auto) 1.7, Sodium Level 138, Potassium Level 3.7, Chloride Level 103, Carbon Dioxide Level 25, Anion Gap 10, Blood Urea Nitrogen 34H, Creatinine 3.5H, Estimat Glomerular Filtration Rate 12.6, Glucose Level 120H, Calcium Level 8.4L, Phosphorus Level 3.4, Magnesium Level 1.9, Total Bilirubin 0.5, Aspartate Amino Transf (AST/SGOT) 16, Alanine Aminotransferase (ALT/SGPT) 8L, Alkaline Phosphatase 151H, Total Protein 5.0L, Albumin 1.2L, Globulin 3.8, Albumin/Globulin Ratio 0.3L Height (Feet): 5 Height (Inches): 4.00 Weight (Pounds): 99 General Appearance: no apparent distress EENT: other - Intubated Cardiovascular: normal rate Respiratory/Chest: decreased breath sounds Abdomen: distended Objective no change William Blackwood MD Aug 22, 2019 12:29
--- NOTE | 2019-08-22 12:33 | Surgery Progress Note ---
Surgery Progress Note Subjective Procedure Performed Right Femoral Temporary Hemodialysis catheter Insertion Additional Comments No acute events. Did not tolerate any weaning today. Labs noted. Objective Last 24 Hour Vital Signs Date Time Temp Pulse Resp B/P (MAP) Pulse Ox O2 Delivery O2 Flow Rate FiO2 08/22/19 12:02 136/88 08/22/19 12:01 136/88 08/22/19 12:00 97.8 67 28 156/89 (111) 99 67 08/22/19 12:00 40 08/22/19 12:00 Mechanical Ventilator Mechanical Ventilator 08/22/19 11:00 61 18 136/62 (86) 100 61 08/22/19 10:00 70 24 135/96 (109) 99 70 08/22/19 09:56 71 18 4 40 08/22/19 09:22 168/71 08/22/19 09:00 98.0 56 18 161/70 (100) 100 56 08/22/19 08:00 55 18 154/77 (102) 100 55 08/22/19 08:00 40 08/22/19 08:00 Mechanical Ventilator Mechanical Ventilator 08/22/19 07:44 56 08/22/19 07:33 57 18 40 08/22/19 07:00 57 20 133/98 (110) 100 08/22/19 06:30 55 18 08/22/19 06:19 169/111 08/22/19 06:18 169/111 08/22/19 06:00 59 20 140/87 (104) 100 08/22/19 05:30 59 18 40 08/22/19 05:00 67 22 150/78 (102) 100 08/22/19 04:00 40 08/22/19 04:00 69 32 133/84 (100) 100 08/22/19 04:00 61 08/22/19 04:00 Mechanical Ventilator Mechanical Ventilator 08/22/19 03:14 60 18 40 08/22/19 03:00 58 18 141/65 (90) 100 08/22/19 02:00 97.8 63 21 175/77 (109) 100 08/22/19 01:00 62 21 139/75 (96) 100 08/22/19 00:58 62 18 40 08/22/19 00:54 160/102 08/22/19 00:53 160/102 3/9/20 00:00 58 18 144/68 (93) 100 08/22/19 00:00 59 08/22/19 00:00 Mechanical Ventilator Mechanical Ventilator 08/21/19 23:45 60 18 100 Mechanical Ventilator 40 08/21/19 23:30 65 18 40 08/21/19 23:00 58 18 140/64 (89) 100 08/21/19 22:00 59 18 154/69 (97) 100 08/21/19 21:15 60 18 40 08/21/19 21:00 60 18 147/92 (110) 100 08/21/19 20:00 97.8 58 18 143/63 (89) 100 08/21/19 20:00 40 08/21/19 20:00 Mechanical Ventilator Mechanical Ventilator 08/21/19 20:00 58 08/21/19 19:30 58 18 40 08/21/19 19:00 59 18 152/66 (94) 100 59 08/21/19 18:35 145/67 08/21/19 18:00 59 18 123/67 (85) 100 59 08/21/19 18:00 123/67 08/21/19 17:00 61 18 148/122 (131) 100 61 08/21/19 16:54 61 18 40 08/21/19 16:00 97.5 60 18 140/67 (91) 100 60 08/21/19 16:00 40 08/21/19 16:00 Mechanical Ventilator Mechanical Ventilator 08/21/19 15:17 60 08/21/19 15:00 69 35 147/69 (95) 100 69 08/21/19 14:56 147/69 08/21/19 14:35 63 18 40 08/21/19 14:00 56 19 148/109 (122) 100 56 08/21/19 13:00 58 18 142/67 (92) 99 58 08/21/19 12:45 61 18 40 I&O Intake and Output 08/21/19 08/22/19 19:00 07:00 Intake Total 837.29 ml 440 ml Output Total 275 ml 100 ml Balance 562.29 ml 340 ml Intake Free Water 100 ml IV Total 387.29 ml 55 ml Tube Feeding 350 ml 385 ml Output Urine Total 275 ml 100 ml # Bowel Movements 5 1 Dressing: dry Wound: clean Cardiovascular: RSR Respiratory: clear, decreased breath sounds, other Abdomen: soft, non-tender, present bowel sounds Extremities: no cyanosis Laboratory Tests Test 08/22/19 08:30 White Blood Count 5.9 K/UL (4.8-10.8) Red Blood Count 3.15 M/UL (4.20-5.40) L Hemoglobin 9.7 G/DL (12.0-16.0) L Hematocrit 28.7 % (37.0-47.0) L Mean Corpuscular Volume 91 FL (80-99) Mean Corpuscular Hemoglobin 30.8 PG (27.0-31.0) Mean Corpuscular Hemoglobin Concent 33.8 G/DL (32.0-36.0) Red Cell Distribution Width 18.3 % (11.6-14.8) H Platelet Count 316 K/UL (150-450) Mean Platelet Volume 7.1 FL (6.5-10.1) Neutrophils (%) (Auto) 53.2 % (45.0-75.0) Lymphocytes (%) (Auto) 38.3 % (20.0-45.0) Monocytes (%) (Auto) 6.0 % (1.0-10.0) Eosinophils (%) (Auto) 0.9 % (0.0-3.0) Basophils (%) (Auto) 1.7 % (0.0-2.0) Sodium Level 138 MMOL/L (136-145) Potassium Level 3.7 MMOL/L (3.5-5.1) Chloride Level 103 MMOL/L (98-107) Carbon Dioxide Level 25 MMOL/L (21-32) Anion Gap 10 mmol/L (5-15) Blood Urea Nitrogen 34 mg/dL (7-18) H Creatinine 3.5 MG/DL (0.55-1.30) H Estimat Glomerular Filtration Rate 12.6 mL/min (>60) Glucose Level 120 MG/DL (74-106) H Calcium Level 8.4 MG/DL (8.5-10.1) L Phosphorus Level 3.4 MG/DL (2.5-4.9) Magnesium Level 1.9 MG/DL (1.8-2.4) Total Bilirubin 0.5 MG/DL (0.2-1.0) Aspartate Amino Transf (AST/SGOT) 16 U/L (15-37) Alanine Aminotransferase (ALT/SGPT) 8 U/L (12-78) L Alkaline Phosphatase 151 U/L (46-116) H Total Protein 5.0 G/DL (6.4-8.2) L Albumin 1.2 G/DL (3.4-5.0) L Globulin 3.8 g/dL Albumin/Globulin Ratio 0.3 (1.0-2.7) L Assessment Post-op Diagnosis same Plan Problems: (1) Malnutrition Assessment & Plan: DAILY ESTIMATED NEEDS: Needs based on ESRD+ HD, underweight, wound/ 39.5kg 35-40 kcals/kg 0653-6433 total kcals 1.25-1.8 g protein/kg 49-71 g total protein 20-22 mL/kg 790-869 total fluid mLs NUTRITION DIAGNOSIS: * Increased kcal and protein needs r/t underweight status, HD needs, wuond healing as evidenced by pt is underweight per guidelines, ESRD, on HD, admitted non-blanching erythema wounds @ BL heels and sacrum * Swallowing difficulty R/T dysphagia as evidenced by COT[employer] SAMPLER recommends temporary nonoral feeding at this time, s/p NGT insertion, on NGT feeding-> now s/p self removal, NPO. CURRENT TF:NPO PO DIET RECOMMENDATIONS: WHEN SAFE FOR ORAL DIET -> renal/ texture per COT[employer] SAMPLER ENTERAL NUTRITION RECOMMENDATIONS: W/ GI access: Nepro @ 35ml/hr x 22 hrs to provide 770ml, 1386kcal, 62g prot, 560ml free water * W/ GI access, resume TF on Nepro * Initiate Nepro @ 15ml/hr x 6 hrs, advance 10ml q 4-6 hrs as tolerated to goal rate. * Hold 1 hour before and after Synthroid med * HOB over 30 degrees/ water flush per MD. ADDITIONAL RECOMMENDATIONS: 1) Calibrated bed scale wt for accurate CBW -> daily wt monitoring Per HD record: dry wt on 07/30=39.5kg (87lbs) 2) Wound care: (W/ GI access) add Nephorivte x 1 + Balta BID 3) Monitor NPO status: without GI access at this time, s/p pulling out NGT 4) Monitor for hypoglycemia while NPO 5) Monitor for continuity of HD (2) Septic arthritis Assessment & Plan: Pt presented on admission with generalized scaly rash . pt noted to be restless and scratching at skin. Bleeding from oral mucosa noted. Joint deformity noted to R shoulder. Surgical incision approximated with 11 sutures. Erythema but no exudate,or elevation in skin temp at site of incision. Historical incision R hip that is tunneled.Small amt seropurulent exudate noted. Periwound is erythematous,but no elevation in skin temp noted. No odor noted. Non-blanching erythema noted to sacrum. Perianal area is erythematous and excoriated. L heel is boggy with non-blanching erythema. R heel is soft with non-blanching erythema. No evidence of skin breakdown to all other bony prominences. Tx.plan: Cover R shoulder with Drsg and change daily and prn. Cleanse R hip wound with Saline. Apply Therahoney.Apply Cavilon Skin Barrier periwound. Cover with Optifoam drsg. Change every 3 days and prn. Apply Moisture Barrier Paste to perianal area and buttocks. Cover Sacrum with Optifoam drsg. Change every 3 days and prn. Apply Cavilon Skin Barrier to both heels. Cover each heel with Optifoam drsg. Change every 7 days and prn. APM/ELVIA Mattress overlay. Reposition at least every 2hours or as tolerated. Off-load heels with pillow. HD cath necessary HD as renal likely will need intubation (3) Wound, open, hip or thigh with complication Assessment & Plan: slow healing will need nutritional optimization difficult ng tube peg when stable sutures removed from right shoulder comfortable wean vent may need trach (4) Abscess of right hip (5) possible septic arthritis Camilo James Aug 22, 2019 12:33
--- NOTE | 2019-08-22 17:45 | General Progress Note ---
Assessment/Plan Problem List: (1) Failure to thrive (0-17) ICD Codes: R62.51 - Failure to thrive (0-17) SNOMED: 309881226 (2) Hypertensive kidney disease ICD Codes: I12.9 - Hypertensive chronic kidney disease with stage 1 through stage 4 chronic kidney disease, or unspecified chronic kidney disease SNOMED: 57220494 (3) Pneumonia ICD Codes: J18.9 - Pneumonia, unspecified organism SNOMED: 271538750 Qualifiers: Qualified Codes: J18.9 - Pneumonia, unspecified organism (4) ESRD (end stage renal disease) ICD Codes: N18.6 - End stage renal disease SNOMED: 92067062 (5) Septic arthritis ICD Codes: M00.9 - Pyogenic arthritis, unspecified SNOMED: 980457811 (6) Thrombocytopenia ICD Codes: D69.6 - Thrombocytopenia, unspecified SNOMED: 662170197 (7) Hypotension ICD Codes: I95.9 - Hypotension, unspecified SNOMED: 18984423 Qualifiers: Qualified Codes: I95.3 - Hypotension of hemodialysis (8) Malnutrition ICD Codes: E46 - Unspecified protein-calorie malnutrition SNOMED: 14112740 Status: stable, not improved, unchanged, deteriorating Assessment/Plan: cont resp care chest pt/suctioning resp rx cont weaning- try simv No plans for trach. resp/volume status needs to be optimized as much as possible monitor plts iv PPI iv abx HD bp rx critical and guarded tube feeds per gi Subjective ROS Limited/Unobtainable: No Constitutional: Reports: malaise, weakness HEENT: Reports: no symptoms Cardiovascular: Reports: no symptoms Respiratory: Reports: no symptoms Gastrointestinal/Abdominal: Reports: no symptoms Genitourinary: Reports: no symptoms Neurologic/Psychiatric: Reports: no symptoms Endocrine: Reports: no symptoms Hematologic/Lymphatic: Reports: anemia Allergies: Coded Allergies: VANCOMYCIN (Unverified Allergy, Unknown, 08/02/19) All Systems: reviewed and negative except above Subjective no events. on the vent. remains alert and awake. no fevers. alert. minimal congestion/secretions. cxr with pulm edema. no attempts at weaning yesterday Objective Last 24 Hour Vital Signs Date Time Temp Pulse Resp B/P (MAP) Pulse Ox O2 Delivery O2 Flow Rate FiO2 08/22/19 17:00 65 26 152/98 (116) 100 08/22/19 16:00 Mechanical Ventilator Mechanical Ventilator 08/22/19 16:00 70 08/22/19 16:00 97.6 60 18 155/63 (93) 94 08/22/19 15:42 60 08/22/19 15:30 66 19 70 08/22/19 15:00 73 34 150/120 (130) 100 08/22/19 14:00 74 25 146/73 (97) 92 08/22/19 13:00 84 22 154/79 (104) 100 08/22/19 12:50 100 08/22/19 12:50 68 18 60 08/22/19 12:02 136/88 08/22/19 12:01 136/88 08/22/19 12:00 97.8 67 28 156/89 (111) 99 67 08/22/19 12:00 40 08/22/19 12:00 Mechanical Ventilator Mechanical Ventilator 08/22/19 11:36 61 08/22/19 11:00 61 18 136/62 (86) 100 61 08/22/19 10:00 70 24 135/96 (109) 99 70 08/22/19 09:56 71 18 4 40 08/22/19 09:22 168/71 08/22/19 09:00 98.0 56 18 161/70 (100) 100 56 08/22/19 08:00 55 18 154/77 (102) 100 55 08/22/19 08:00 40 08/22/19 08:00 Mechanical Ventilator Mechanical Ventilator 08/22/19 07:44 56 08/22/19 07:33 57 18 40 08/22/19 07:00 57 20 133/98 (110) 100 08/22/19 06:30 55 18 08/22/19 06:19 169/111 08/22/19 06:18 169/111 08/22/19 06:00 59 20 140/87 (104) 100 08/22/19 05:30 59 18 40 08/22/19 05:00 67 22 150/78 (102) 100 08/22/19 04:00 40 08/22/19 04:00 69 32 133/84 (100) 100 08/22/19 04:00 61 08/22/19 04:00 Mechanical Ventilator Mechanical Ventilator 08/22/19 03:14 60 18 40 08/22/19 03:00 58 18 141/65 (90) 100 08/22/19 02:00 97.8 63 21 175/77 (109) 100 08/22/19 01:00 62 21 139/75 (96) 100 08/22/19 00:58 62 18 40 08/22/19 00:54 160/102 08/22/19 00:53 160/102 08/22/19 00:00 58 18 144/68 (93) 100 08/22/19 00:00 59 08/22/19 00:00 Mechanical Ventilator Mechanical Ventilator 08/21/19 23:45 60 18 100 Mechanical Ventilator 40 08/21/19 23:30 65 18 40 08/21/19 23:00 58 18 140/64 (89) 100 08/21/19 22:00 59 18 154/69 (97) 100 08/21/19 21:15 60 18 40 08/21/19 21:00 60 18 147/92 (110) 100 08/21/19 20:00 97.8 58 18 143/63 (89) 100 08/21/19 20:00 40 08/21/19 20:00 Mechanical Ventilator Mechanical Ventilator 08/21/19 20:00 58 08/21/19 19:30 58 18 40 08/21/19 19:00 59 18 152/66 (94) 100 59 08/21/19 18:35 145/67 08/21/19 18:00 59 18 123/67 (85) 100 59 08/21/19 18:00 123/67 Intake and Output 08/21/19 08/22/19 19:00 07:00 Intake Total 837.29 ml 440 ml Output Total 275 ml 100 ml Balance 562.29 ml 340 ml Intake Free Water 100 ml IV Total 387.29 ml 55 ml Tube Feeding 350 ml 385 ml Output Urine Total 275 ml 100 ml # Bowel Movements 5 1 Laboratory Tests 08/22/19 08:30: White Blood Count 5.9, Red Blood Count 3.15L, Hemoglobin 9.7L, Hematocrit 28.7L , Mean Corpuscular Volume 91, Mean Corpuscular Hemoglobin 30.8, Mean Corpuscular Hemoglobin Concent 33.8, Red Cell Distribution Width 18.3H, Platelet Count 316, Mean Platelet Volume 7.1, Neutrophils (%) (Auto) 53.2, Lymphocytes (%) (Auto) 38.3, Monocytes (%) (Auto) 6.0, Eosinophils (%) (Auto) 0.9, Basophils (%) (Auto) 1.7, Sodium Level 138, Potassium Level 3.7, Chloride Level 103, Carbon Dioxide Level 25, Anion Gap 10, Blood Urea Nitrogen 34H, Creatinine 3.5H, Estimat Glomerular Filtration Rate 12.6, Glucose Level 120H, Calcium Level 8.4L, Phosphorus Level 3.4, Magnesium Level 1.9, Total Bilirubin 0.5, Aspartate Amino Transf (AST/SGOT) 16, Alanine Aminotransferase (ALT/SGPT) 8L, Alkaline Phosphatase 151H, Total Protein 5.0L, Albumin 1.2L, Globulin 3.8, Albumin/Globulin Ratio 0.3L Height (Feet): 5 Height (Inches): 4.00 Weight (Pounds): 99 Objective General Appearance: WD/WN, awake/moaning. orally intubated Neck: supple Cardiovascular: normal rate Respiratory/Chest: rhonchi - bilaterally Abdomen: normal bowel sounds, non tender, soft, no organomegaly Edema: no edema noted Arm (L), no edema noted Arm (R), no edema noted Leg (L), no edema noted Leg (R), no edema noted Pedal (L), no edema noted Pedal (R), no edema noted Generalized Neurologic: disoriented, aphasia Nate Beltran MD Aug 22, 2019 17:45
--- NOTE | 2019-08-22 17:50 | Hematology/Onc Progress Note ---
Assessment/Plan Assessment/Plan # Thrombocytopenia - potential causes multifactorial, evaluate liver and viral etiologies to begin, in this case due to sepsis with septic shock also with cirrhosis and liver disease --> Hep panel and HIV ordered -> neg --> US abd to evaluate for cirrhosis and hsm ordered --> reviewed --> Peripheral smear ordered to evaluate for blasts /schistocytes --> abx and other meds have been reviewed --> ok for ppx if plt >50k w/ either heparin or lovenox --> Transfuse if Plt < 20k and fever, or if Plt < 10k without fever --> okay for permacath change once plt better--> for 08/14 --> plt trend: 43-->83-->237k-->292-->341-->315 # Anemia of chronic disease due to underlying chronic medical issues, multifactorial v Gi bleed --> Anemia workup has been ordered, rule out gi bleed --> No evidence of hemolysis is noted, peripheral smear has been reviewed. --> Hgb goal >7. Transfuse prn. --> Epogen has been started --> HOLD OFF IRON ferritin is >1000 --> Medications have been reviewed --> low threshold for gi evaluation in case has occult + --> hgb 9-->6.7-->9.2 -->10.5-->10.6 -->10.7-->10 --> blood tx: 08/11 # Early sepsis with shock. --> abx as per id, recs noted # Healthcare-associated pneumonia. --> recs reviewed --> abx: jung/micafungin-->jung # Severe protein-calorie malnutrition. --> nutritional support # End-stage renal disease --> had as renal hd --> with permacath # History of hypertension. --> per cards, now with Bradycardia. # resp failure s/p vent # HypoThyroid # Ngt feedings # Dvt ppx scd's The timing of this note does not necessarily reflect the time of the patient was seen. Greatly appreciate consultation. Subjective Allergies: Coded Allergies: VANCOMYCIN (Unverified Allergy, Unknown, 08/02/19) Subjective 08/11: no bleeding or chills, labs reviewed, no major bleeding, plt less than 50k 2/28: icu, s/p blood, hgb improved to 9.2, 08/14: icu, pending consent for thora and permacath, labs reviewed 08/15: new permacath placed, no bleeding, for hd, plt much improved, started lovenox sq 08/16: ett to be adjusted, bp on high end, micafungin started, possible bronch 08/17: weaning as per pulm, no events otherwise, labs noted 08/18: no events no bleeding, remains confused on vent, for hd 08/20: icu, failed to wean, labs reviewed, jung 08/21: resting in bed, no overnight events, labs reviewed Objective Objective Current Medications Medications (Trade) Dose Ordered Sig/Javier Route PRN Reason Start Time Stop Time Status Last Admin Dose Admin Albuterol/ Ipratropium (Albuterol/ Ipratropium) 3 ml Q4H PRN HHN Shortness of Breath 08/19/19 07:45 08/24/19 07:44 Atropine Sulfate (Atropine) 1 mg Q4H PRN IVP Per rx protocol 08/13/19 08:30 09/12/19 08:29 Chlorhexidine Gluconate (Nae-Hex 2%) 1 applic DAILY@2000 TOPIC 08/15/19 20:00 09/14/19 19:59 08/21/19 20:55 Dextrose (Dextrose 50%) 50 ml Q30M PRN IV Hypoglycemia 08/11/19 10:30 09/04/19 17:44 08/22/19 15:46 Diphenhydramine HCl (Benadryl) 50 mg Q4H PRN IVP Itching 08/09/19 14:30 09/08/19 14:29 08/13/19 02:39 Epoetin Thomas (Epoetin Thomas(ESRD on dialysis)) 4,000 unit THU-THU-THU SUBQ 08/12/19 21:00 09/11/19 20:59 08/19/19 20:33 Fluconazole/ Sodium Chloride 100 ml @ 100 mls/hr Q24H IV 08/18/19 13:00 08/29/19 23:59 08/22/19 15:34 Hydralazine HCl (Apresoline) 10 mg Q4H PRN IV For High Blood Pressure 08/18/19 12:44 09/17/19 12:43 08/22/19 09:22 Hydralazine HCl (Apresoline) 10 mg Q6HR NG 08/21/19 14:45 09/20/19 14:44 08/22/19 12:02 Lansoprazole (Prevacid) 30 mg BID GT 08/19/19 09:00 09/18/19 08:59 08/22/19 08:46 Levothyroxine Sodium (Synthroid) 75 mcg DAILY@0630 ORAL 08/22/19 06:30 09/21/19 06:29 08/22/19 06:19 Lorazepam (Ativan 2mg/ml 1ml) 1 mg Q3H PRN IV For Anxiety 08/17/19 11:30 08/24/19 11:29 Meropenem 500 mg/ Sodium Chloride 55 ml @ 110 mls/hr EVERY 12 HOURS IVPB 08/22/19 21:00 08/27/19 20:59 Metoclopramide HCl (Reglan) 5 mg Q8H PRN IVP Nausea & Vomiting 08/09/19 12:39 09/08/19 12:38 Nitroglycerin (Nitro-Bid) 1 inch Q6HR TOPIC 08/09/19 12:39 09/08/19 12:38 08/22/19 12:01 Last 24 Hour Vital Signs Date Time Temp Pulse Resp B/P (MAP) Pulse Ox O2 Delivery O2 Flow Rate FiO2 08/22/19 17:00 65 26 152/98 (116) 100 08/22/19 16:00 Mechanical Ventilator Mechanical Ventilator 08/22/19 16:00 70 08/22/19 16:00 97.6 60 18 155/63 (93) 94 08/22/19 15:42 60 08/22/19 15:30 66 19 70 08/22/19 15:00 73 34 150/120 (130) 100 08/22/19 14:00 74 25 146/73 (97) 92 08/22/19 13:00 84 22 154/79 (104) 100 08/22/19 12:50 100 08/22/19 12:50 68 18 60 08/22/19 12:02 136/88 08/22/19 12:01 136/88 08/22/19 12:00 97.8 67 28 156/89 (111) 99 67 08/22/19 12:00 40 08/22/19 12:00 Mechanical Ventilator Mechanical Ventilator 08/22/19 11:36 61 08/22/19 11:00 61 18 136/62 (86) 100 61 08/22/19 10:00 70 24 135/96 (109) 99 70 08/22/19 09:56 71 18 4 40 08/22/19 09:22 168/71 08/22/19 09:00 98.0 56 18 161/70 (100) 100 56 08/22/19 08:00 55 18 154/77 (102) 100 55 08/22/19 08:00 40 08/22/19 08:00 Mechanical Ventilator Mechanical Ventilator 08/22/19 07:44 56 08/22/19 07:33 57 18 40 08/22/19 07:00 57 20 133/98 (110) 100 08/22/19 06:30 55 18 08/22/19 06:19 169/111 08/22/19 06:18 169/111 08/22/19 06:00 59 20 140/87 (104) 100 08/22/19 05:30 59 18 40 08/22/19 05:00 67 22 150/78 (102) 100 08/22/19 04:00 40 08/22/19 04:00 69 32 133/84 (100) 100 08/22/19 04:00 61 08/22/19 04:00 Mechanical Ventilator Mechanical Ventilator 08/22/19 03:14 60 18 40 08/22/19 03:00 58 18 141/65 (90) 100 08/22/19 02:00 97.8 63 21 175/77 (109) 100 08/22/19 01:00 62 21 139/75 (96) 100 08/22/19 00:58 62 18 40 08/22/19 00:54 160/102 08/22/19 00:53 160/102 08/22/19 00:00 58 18 144/68 (93) 100 08/22/19 00:00 59 08/22/19 00:00 Mechanical Ventilator Mechanical Ventilator 08/21/19 23:45 60 18 100 Mechanical Ventilator 40 08/21/19 23:30 65 18 40 08/21/19 23:00 58 18 140/64 (89) 100 3/8/20 22:00 59 18 154/69 (97) 100 08/21/19 21:15 60 18 40 08/21/19 21:00 60 18 147/92 (110) 100 08/21/19 20:00 97.8 58 18 143/63 (89) 100 08/21/19 20:00 40 08/21/19 20:00 Mechanical Ventilator Mechanical Ventilator 08/21/19 20:00 58 08/21/19 19:30 58 18 40 08/21/19 19:00 59 18 152/66 (94) 100 59 08/21/19 18:35 145/67 08/21/19 18:00 59 18 123/67 (85) 100 59 08/21/19 18:00 123/67 08/21/19 17:00 61 18 148/122 (131) 100 61 08/21/19 16:54 61 18 40 08/21/19 16:00 97.5 60 18 140/67 (91) 100 60 08/21/19 16:00 40 08/21/19 16:00 Mechanical Ventilator Mechanical Ventilator 08/21/19 15:17 60 08/21/19 15:00 69 35 147/69 (95) 100 69 08/21/19 14:56 147/69 08/21/19 14:35 63 18 40 08/21/19 14:00 56 19 148/109 (122) 100 56 08/21/19 13:00 58 18 142/67 (92) 99 58 08/21/19 12:45 61 18 40 08/21/19 12:20 134/71 08/21/19 12:00 98.0 59 18 134/71 (92) 98 59 08/21/19 12:00 Mechanical Ventilator Mechanical Ventilator 08/21/19 12:00 40 08/21/19 11:44 60 08/21/19 11:09 100 08/21/19 11:06 73 18 40 08/21/19 11:00 66 13 150/67 (94) 100 66 08/21/19 10:00 74 19 146/86 (106) 100 74 08/21/19 09:28 163/76 08/21/19 09:00 72 26 163/76 (105) 100 72 08/21/19 08:43 68 15 4 40 08/21/19 08:00 98.2 65 22 152/62 (92) 99 65 08/21/19 08:00 Mechanical Ventilator Mechanical Ventilator 08/21/19 08:00 40 08/21/19 07:28 65 08/21/19 07:00 67 23 151/66 (94) 99 67 08/21/19 06:49 66 18 40 08/21/19 06:30 63 21 08/21/19 06:00 64 23 159/65 (96) 100 64 08/21/19 05:35 158/63 08/21/19 05:25 64 18 40 08/21/19 05:00 57 18 153/71 (98) 100 57 08/21/19 04:00 98.0 60 23 151/62 (91) 100 60 08/21/19 04:00 64 08/21/19 04:00 40 08/21/19 04:00 Mechanical Ventilator Mechanical Ventilator 08/21/19 03:21 59 18 40 08/21/19 03:00 67 21 157/67 (97) 99 67 08/21/19 02:00 59 19 157/67 (97) 99 59 08/21/19 01:07 165/69 08/21/19 01:00 59 19 165/69 (101) 99 59 08/21/19 00:55 61 18 40 08/21/19 00:00 97.7 65 25 157/69 (98) 100 65 08/21/19 00:00 65 08/21/19 00:00 40 08/21/19 00:00 Mechanical Ventilator Mechanical Ventilator 08/20/19 23:46 166/73 08/20/19 23:32 63 18 40 08/20/19 23:00 60 20 159/70 (99) 100 60 08/20/19 22:00 60 25 155/69 (97) 100 60 08/20/19 21:42 58 18 40 08/20/19 21:00 57 21 163/66 (98) 100 57 08/20/19 20:00 40 08/20/19 20:00 97.6 58 24 156/65 (95) 100 58 08/20/19 20:00 Mechanical Ventilator Mechanical Ventilator 08/20/19 20:00 58 08/20/19 19:31 62 21 40 08/20/19 19:00 70 30 136/65 (88) 100 70 08/20/19 18:14 177/73 08/20/19 18:14 08/20/19 18:00 59 23 177 (107) 100 59 Intake and Output 08/21/19 08/22/19 19:00 07:00 Intake Total 837.29 ml 440 ml Output Total 275 ml 100 ml Balance 562.29 ml 340 ml Intake Free Water 100 ml IV Total 387.29 ml 55 ml Tube Feeding 350 ml 385 ml Output Urine Total 275 ml 100 ml # Bowel Movements 5 1 Labs Test 08/20/19 05:00 08/21/19 04:00 08/22/19 08:30 White Blood Count 7.9 K/UL (4.8-10.8) 7.5 K/UL (4.8-10.8) 5.9 K/UL (4.8-10.8) Red Blood Count 3.42 M/UL (4.20-5.40) 3.25 M/UL (4.20-5.40) 3.15 M/UL (4.20-5.40) Hemoglobin 10.5 G/DL (12.0-16.0) 10.0 G/DL (12.0-16.0) 9.7 G/DL (12.0-16.0) Hematocrit 31.4 % (37.0-47.0) 29.8 % (37.0-47.0) 28.7 % (37.0-47.0) Mean Corpuscular Volume 92 FL (80-99) 92 FL (80-99) 91 FL (80-99) Mean Corpuscular Hemoglobin 30.8 PG (27.0-31.0) 30.7 PG (27.0-31.0) 30.8 PG (27.0-31.0) Mean Corpuscular Hemoglobin Concent 33.5 G/DL (32.0-36.0) 33.5 G/DL (32.0-36.0) 33.8 G/DL (32.0-36.0) Red Cell Distribution Width 18.4 % (11.6-14.8) 18.4 % (11.6-14.8) 18.3 % (11.6-14.8) Platelet Count 367 K/UL (150-450) 341 K/UL (150-450) 316 K/UL (150-450) Mean Platelet Volume 6.8 FL (6.5-10.1) 7.0 FL (6.5-10.1) 7.1 FL (6.5-10.1) Neutrophils (%) (Auto) 57.8 % (45.0-75.0) 62.6 % (45.0-75.0) 53.2 % (45.0-75.0) Lymphocytes (%) (Auto) 35.5 % (20.0-45.0) 30.7 % (20.0-45.0) 38.3 % (20.0-45.0) Monocytes (%) (Auto) 5.2 % (1.0-10.0) 5.0 % (1.0-10.0) 6.0 % (1.0-10.0) Eosinophils (%) (Auto) 0.4 % (0.0-3.0) 0.7 % (0.0-3.0) 0.9 % (0.0-3.0) Basophils (%) (Auto) 1.0 % (0.0-2.0) 1.0 % (0.0-2.0) 1.7 % (0.0-2.0) Prothrombin Time 11.0 SEC (9.30-11.50) Prothromb Time International Ratio 1.0 (0.9-1.1) Activated Partial Thromboplast Time 30 SEC (23-33) Sodium Level 142 MMOL/L (136-145) 140 MMOL/L (136-145) 138 MMOL/L (136-145) Potassium Level 3.5 MMOL/L (3.5-5.1) 3.3 MMOL/L (3.5-5.1) 3.7 MMOL/L (3.5-5.1) Chloride Level 105 MMOL/L (98-107) 102 MMOL/L (98-107) 103 MMOL/L (98-107) Carbon Dioxide Level 27 MMOL/L (21-32) 27 MMOL/L (21-32) 25 MMOL/L (21-32) Anion Gap 10 mmol/L (5-15) 11 mmol/L (5-15) 10 mmol/L (5-15) Blood Urea Nitrogen 35 mg/dL (7-18) 26 mg/dL (7-18) 34 mg/dL (7-18) Creatinine 4.0 MG/DL (0.55-1.30) 3.1 MG/DL (0.55-1.30) 3.5 MG/DL (0.55-1.30) Estimat Glomerular Filtration Rate 10.8 mL/min (>60) 14.5 mL/min (>60) 12.6 mL/min (>60) Glucose Level 145 MG/DL (74-106) 129 MG/DL (74-106) 120 MG/DL (74-106) Calcium Level 8.5 MG/DL (8.5-10.1) 8.4 MG/DL (8.5-10.1) 8.4 MG/DL (8.5-10.1) Phosphorus Level 3.0 MG/DL (2.5-4.9) 2.1 MG/DL (2.5-4.9) 3.4 MG/DL (2.5-4.9) Magnesium Level 2.2 MG/DL (1.8-2.4) 1.9 MG/DL (1.8-2.4) 1.9 MG/DL (1.8-2.4) Total Bilirubin 0.4 MG/DL (0.2-1.0) 0.5 MG/DL (0.2-1.0) 0.5 MG/DL (0.2-1.0) Aspartate Amino Transf (AST/SGOT) 18 U/L (15-37) 22 U/L (15-37) 16 U/L (15-37) Alanine Aminotransferase (ALT/SGPT) 13 U/L (12-78) 7 U/L (12-78) 8 U/L (12-78) Alkaline Phosphatase 184 U/L (46-116) 167 U/L (46-116) 151 U/L (46-116) C-Reactive Protein, Quantitative 2.7 mg/dL (0.00-0.90) 3.1 mg/dL (0.00-0.90) Pro-B-Type Natriuretic Peptide > 3500 pg/mL (0-125) > 85797 pg/mL (0-125) Total Protein 5.4 G/DL (6.4-8.2) 5.5 G/DL (6.4-8.2) 5.0 G/DL (6.4-8.2) Albumin 1.3 G/DL (3.4-5.0) 1.6 G/DL (3.4-5.0) 1.2 G/DL (3.4-5.0) Globulin 4.1 g/dL 3.9 g/dL 3.8 g/dL Albumin/Globulin Ratio 0.3 (1.0-2.7) 0.4 (1.0-2.7) 0.3 (1.0-2.7) Height (Feet): 5 Height (Inches): 4.00 Weight (Pounds): 99 Objective gen: nad pulm: on trach+ / vent cv: rrr, no gmr abd: sfot, nt, nd ++ gt ext: no cce Gio Rob MD Aug 22, 2019 17:50
[2019-08-22] MEDS: Dyna-Hex 2% Top Sol 2oz TOPIC SCH (19:55)
[2019-08-22] MEDS: Epoetin Alfa-EPBX(ESRD on dialysis)4000 units/ml vial SUBQ SCH (21:23)
--- NOTE | 2019-08-22 22:07 | General Progress Note ---
Assessment/Plan Status: stable, not improved, unchanged, deteriorating Assessment/Plan: Assessment - Severe ulcerative esophagitis on endoscopy - on BID PPI - Resp failure --> now intubated - thrombocytopenia --> resolved - Renal failure --> now on HD, stablized - aspiration risk --> s/p PEG - anemia - bradycardia - Poor prognosis Recommendations - Continue TF - OK to restart anticoagulation from GI standpoint - monitor H&H - f/u esophageal biopsies Subjective Allergies: Coded Allergies: VANCOMYCIN (Unverified Allergy, Unknown, 08/02/19) Subjective Above noted d/w RN tolerating TF Objective Last 24 Hour Vital Signs Date Time Temp Pulse Resp B/P (MAP) Pulse Ox O2 Delivery O2 Flow Rate FiO2 08/22/19 20:00 70 08/22/19 20:00 81 08/22/19 20:00 65 25 147/79 (101) 100 08/22/19 20:00 Mechanical Ventilator Mechanical Ventilator 08/22/19 19:30 64 18 70 08/22/19 19:00 66 25 137/107 (117) 100 08/22/19 18:09 129/28 08/22/19 18:09 129/98 08/22/19 18:00 67 22 129/98 (108) 100 08/22/19 17:00 65 26 152/98 (116) 100 08/22/19 16:52 99 24 70 08/22/19 16:00 Mechanical Ventilator Mechanical Ventilator 08/22/19 16:00 70 08/22/19 16:00 97.6 60 18 155/63 (93) 94 08/22/19 15:42 60 08/22/19 15:30 66 19 70 08/22/19 15:00 73 34 150/120 (130) 100 08/22/19 14:00 74 25 146/73 (97) 92 08/22/19 13:00 84 22 154/79 (104) 100 08/22/19 12:50 100 08/22/19 12:50 68 18 60 08/22/19 12:02 136/88 08/22/19 12:01 136/88 08/22/19 12:00 97.8 67 28 156/89 (111) 99 67 08/22/19 12:00 40 08/22/19 12:00 Mechanical Ventilator Mechanical Ventilator 3/9/20 11:36 61 08/22/19 11:00 61 18 136/62 (86) 100 61 08/22/19 10:00 70 24 135/96 (109) 99 70 08/22/19 09:56 71 18 4 40 08/22/19 09:22 168/71 08/22/19 09:00 98.0 56 18 161/70 (100) 100 56 08/22/19 08:00 55 18 154/77 (102) 100 55 08/22/19 08:00 40 08/22/19 08:00 Mechanical Ventilator Mechanical Ventilator 08/22/19 07:44 56 08/22/19 07:33 57 18 40 08/22/19 07:00 57 20 133/98 (110) 100 08/22/19 06:30 55 18 08/22/19 06:19 169/111 08/22/19 06:18 169/111 08/22/19 06:00 59 20 140/87 (104) 100 08/22/19 05:30 59 18 40 08/22/19 05:00 67 22 150/78 (102) 100 08/22/19 04:00 40 08/22/19 04:00 69 32 133/84 (100) 100 08/22/19 04:00 61 08/22/19 04:00 Mechanical Ventilator Mechanical Ventilator 08/22/19 03:14 60 18 40 08/22/19 03:00 58 18 141/65 (90) 100 08/22/19 02:00 97.8 63 21 175/77 (109) 100 08/22/19 01:00 62 21 139/75 (96) 100 08/22/19 00:58 62 18 40 08/22/19 00:54 160/102 08/22/19 00:53 160/102 08/22/19 00:00 58 18 144/68 (93) 100 08/22/19 00:00 59 08/22/19 00:00 Mechanical Ventilator Mechanical Ventilator 08/21/19 23:45 60 18 100 Mechanical Ventilator 40 08/21/19 23:30 65 18 40 08/21/19 23:00 58 18 140/64 (89) 100 Intake and Output 08/21/19 08/22/19 19:00 07:00 Intake Total 837.29 ml 440 ml Output Total 275 ml 100 ml Balance 562.29 ml 340 ml Intake Free Water 100 ml IV Total 387.29 ml 55 ml Tube Feeding 350 ml 385 ml Output Urine Total 275 ml 100 ml # Bowel Movements 5 1 Laboratory Tests 08/22/19 08:30: White Blood Count 5.9, Red Blood Count 3.15L, Hemoglobin 9.7L, Hematocrit 28.7L , Mean Corpuscular Volume 91, Mean Corpuscular Hemoglobin 30.8, Mean Corpuscular Hemoglobin Concent 33.8, Red Cell Distribution Width 18.3H, Platelet Count 316, Mean Platelet Volume 7.1, Neutrophils (%) (Auto) 53.2, Lymphocytes (%) (Auto) 38.3, Monocytes (%) (Auto) 6.0, Eosinophils (%) (Auto) 0.9, Basophils (%) (Auto) 1.7, Sodium Level 138, Potassium Level 3.7, Chloride Level 103, Carbon Dioxide Level 25, Anion Gap 10, Blood Urea Nitrogen 34H, Creatinine 3.5H, Estimat Glomerular Filtration Rate 12.6, Glucose Level 120H, Calcium Level 8.4L, Phosphorus Level 3.4, Magnesium Level 1.9, Total Bilirubin 0.5, Aspartate Amino Transf (AST/SGOT) 16, Alanine Aminotransferase (ALT/SGPT) 8L, Alkaline Phosphatase 151H, Total Protein 5.0L, Albumin 1.2L, Globulin 3.8, Albumin/Globulin Ratio 0.3L Height (Feet): 5 Height (Inches): 4.00 Weight (Pounds): 99 Objective Debilitated frail woman NCAT (+) ETT supple scattered ronchi RR abd soft ND NT, (+) GT no edema Cristy Elizondo MD Aug 22, 2019 22:07
[2019-08-23] VITALS (24 sets, daily range): BP systolic 126–178; BP diastolic 68–98
[2019-08-23] MEDS: Nitroglycerin 2% oint pkt TOPIC SCH ×4 (00:25→17:09)
[2019-08-23] MEDS: HydrALAZINE 10mg Tab NG SCH (00:25)
--- NOTE | 2019-08-23 03:45 | Progress Note ---
DATE: 08/22/2019 CARDIOLOGY PROGRESS NOTE SUBJECTIVE: The patient remains in critical condition with guarded prognosis in the intensive care unit. On ventilator support. Ongoing weaning efforts in progress. Monitored rhythm, sinus and sinus bradycardia. PHYSICAL EXAMINATION: VITAL SIGNS: Blood pressure is very labile, 155/63 to 150/120 recorded. LUNGS: Bilateral breath sounds. Thin secretions from endotracheal tube. CARDIAC: Regular rhythm and rate. Normal S1 and S2 with no new murmur. ABDOMEN: Soft. G-tube site intact. EXTREMITIES: There is 1+ edema. LABORATORY DATA: White count 5.9 and hemoglobin 9.7. Phosphorus is 3.4, magnesium 1.9, and potassium 3.7. Albumin 1.2. IMPRESSION: 1. Respiratory failure. 2. Severe protein-calorie malnutrition. 3. Hypophosphatemia, corrected. 4. Hypomagnesemia, corrected. 5. Sinus node disease with bradycardia, improved following thyroid replacement. 6. Hypothyroidism, on replacement therapy. 7. Hypertensive heart disease with labile blood pressure. 8. Acute on chronic diastolic congestive heart failure. PLAN: 1. Hemodialysis with ultrafiltration. 2. Weaning efforts. 3. Antimicrobials. 4. Protein supplement by feeding tube. 5. DVT prophylaxis. 6. Advance antihypertensive and anti-failure regimen for optimal control of blood pressure, remains high risk. Abel Stubbs M.D. DR: ARETHA JOB#: [id number] CC:
--- NOTE | 2019-08-23 06:15 | General Progress Note ---
Assessment/Plan Problem List: (1) Hypothyroid ICD Codes: E03.9 - Hypothyroidism, unspecified SNOMED: 82076407 (2) ESRD (end stage renal disease) on dialysis ICD Codes: N18.6 - End stage renal disease; Z99.2 - Dependence on renal dialysis SNOMED: 817248800 (3) Hypotension ICD Codes: I95.9 - Hypotension, unspecified SNOMED: 03803275 Qualifiers: Qualified Codes: I95.3 - Hypotension of hemodialysis (4) Pneumonia ICD Codes: J18.9 - Pneumonia, unspecified organism SNOMED: 258513981 Qualifiers: Qualified Codes: J18.9 - Pneumonia, unspecified organism (5) Diabetes mellitus ICD Codes: E11.9 - Type 2 diabetes mellitus without complications SNOMED: 61069388 Status: stable, not improved, unchanged, deteriorating Assessment/Plan: repeat TSH, free T4 today continue Levothyroxine 75 IV daily Subjective Allergies: Coded Allergies: VANCOMYCIN (Unverified Allergy, Unknown, 08/02/19) Subjective events noted interval notes reviewed Item Value Date Time Bedside Blood Glucose 131 mg/dl H 08/23/19 0600 Bedside Blood Glucose 141 mg/dl H 08/23/19 0000 Bedside Blood Glucose 135 mg/dl H 08/22/19 1800 Bedside Blood Glucose 90 mg/dl 08/22/19 1200 Objective Last 24 Hour Vital Signs Date Time Temp Pulse Resp B/P (MAP) Pulse Ox O2 Delivery O2 Flow Rate FiO2 08/23/19 05:27 82 19 70 08/23/19 05:00 76 28 152/81 (104) 100 08/23/19 04:00 70 08/23/19 04:00 68 08/23/19 04:00 98.0 70 24 147/90 (109) 100 08/23/19 04:00 Mechanical Ventilator Mechanical Ventilator 08/23/19 03:40 78 18 70 08/23/19 03:00 67 30 158/82 (107) 99 08/23/19 02:00 67 21 178/77 (110) 100 08/23/19 01:57 63 178/77 08/23/19 01:06 77 21 70 08/23/19 01:00 67 25 162/73 (102) 99 08/23/19 00:25 164/82 08/23/19 00:25 164/82 08/23/19 00:00 98.0 66 24 164/82 (109) 99 08/23/19 00:00 68 08/23/19 00:00 70 08/23/19 00:00 Mechanical Ventilator Mechanical Ventilator 08/22/19 23:15 72 19 70 08/22/19 23:00 62 24 153/98 (116) 100 08/22/19 22:00 62 20 155/90 (111) 100 08/22/19 21:08 66 20 70 08/22/19 21:00 63 33 156/89 (111) 99 08/22/19 20:00 70 08/22/19 20:00 81 08/22/19 20:00 97.8 65 25 147/79 (101) 100 08/22/19 20:00 Mechanical Ventilator Mechanical Ventilator 08/22/19 19:30 64 18 70 08/22/19 19:00 66 25 137/107 (117) 100 08/22/19 18:09 129/28 08/22/19 18:09 129/98 08/22/19 18:00 67 22 129/98 (108) 100 08/22/19 17:00 65 26 152/98 (116) 100 08/22/19 16:52 99 24 70 08/22/19 16:00 Mechanical Ventilator Mechanical Ventilator 08/22/19 16:00 70 08/22/19 16:00 97.6 60 18 155/63 (93) 94 08/22/19 15:42 60 08/22/19 15:30 66 19 70 08/22/19 15:00 73 34 150/120 (130) 100 08/22/19 14:00 74 25 146/73 (97) 92 08/22/19 13:00 84 22 154/79 (104) 100 08/22/19 12:50 100 08/22/19 12:50 68 18 60 08/22/19 12:02 136/88 08/22/19 12:01 136/88 08/22/19 12:00 97.8 67 28 156/89 (111) 99 67 08/22/19 12:00 40 08/22/19 12:00 Mechanical Ventilator Mechanical Ventilator 08/22/19 11:36 61 08/22/19 11:00 61 18 136/62 (86) 100 61 08/22/19 10:00 70 24 135/96 (109) 99 70 08/22/19 09:56 71 18 4 40 08/22/19 09:22 168/71 08/22/19 09:00 98.0 56 18 161/70 (100) 100 56 08/22/19 08:00 55 18 154/77 (102) 100 55 08/22/19 08:00 40 08/22/19 08:00 Mechanical Ventilator Mechanical Ventilator 08/22/19 07:44 56 08/22/19 07:33 57 18 40 08/22/19 07:00 57 20 133/98 (110) 100 08/22/19 06:30 55 18 08/22/19 06:19 169/111 08/22/19 06:18 169/111 Intake and Output 08/22/19 08/23/19 19:00 07:00 Intake Total 520 ml 405 ml Balance 520 ml 405 ml IV Total 100 ml 55 ml Tube Feeding 420 ml 350 ml # Bowel Movements 2 Laboratory Tests 08/22/19 08:30: White Blood Count 5.9, Red Blood Count 3.15L, Hemoglobin 9.7L, Hematocrit 28.7L , Mean Corpuscular Volume 91, Mean Corpuscular Hemoglobin 30.8, Mean Corpuscular Hemoglobin Concent 33.8, Red Cell Distribution Width 18.3H, Platelet Count 316, Mean Platelet Volume 7.1, Neutrophils (%) (Auto) 53.2, Lymphocytes (%) (Auto) 38.3, Monocytes (%) (Auto) 6.0, Eosinophils (%) (Auto) 0.9, Basophils (%) (Auto) 1.7, Sodium Level 138, Potassium Level 3.7, Chloride Level 103, Carbon Dioxide Level 25, Anion Gap 10, Blood Urea Nitrogen 34H, Creatinine 3.5H, Estimat Glomerular Filtration Rate 12.6, Glucose Level 120H, Calcium Level 8.4L, Phosphorus Level 3.4, Magnesium Level 1.9, Total Bilirubin 0.5, Aspartate Amino Transf (AST/SGOT) 16, Alanine Aminotransferase (ALT/SGPT) 8L, Alkaline Phosphatase 151H, Total Protein 5.0L, Albumin 1.2L, Globulin 3.8, Albumin/Globulin Ratio 0.3L Height (Feet): 5 Height (Inches): 4.00 Weight (Pounds): 99 General Appearance: lethargic Neck: normal alignment Cardiovascular: normal rate Respiratory/Chest: decreased breath sounds Abdomen: normal bowel sounds Edema: no edema noted Arm (L), no edema noted Arm (R), no edema noted Leg (L), no edema noted Leg (R), no edema noted Pedal (L), no edema noted Pedal (R), no edema noted Generalized Objective Current Medications Medications (Trade) Dose Ordered Sig/Javier Route PRN Reason Start Time Stop Time Status Last Admin Dose Admin Albuterol/ Ipratropium (Albuterol/ Ipratropium) 3 ml Q4H PRN HHN Shortness of Breath 08/19/19 07:45 08/24/19 07:44 Amlodipine Besylate (Norvasc) 5 mg BID NG 08/23/19 01:45 09/22/19 01:44 08/23/19 01:57 Atropine Sulfate (Atropine) 1 mg Q4H PRN IVP Per rx protocol 08/13/19 08:30 09/12/19 08:29 Chlorhexidine Gluconate (Nae-Hex 2%) 1 applic DAILY@2000 TOPIC 08/15/19 20:00 09/14/19 19:59 08/22/19 19:55 Dextrose (Dextrose 50%) 50 ml Q30M PRN IV Hypoglycemia 08/11/19 10:30 09/04/19 17:44 08/22/19 15:46 Diphenhydramine HCl (Benadryl) 50 mg Q4H PRN IVP Itching 08/09/19 14:30 09/08/19 14:29 08/13/19 02:39 Epoetin Thomas (Epoetin Thomas(ESRD on dialysis)) 4,000 unit [id number]-[id number]-[id number] SUBQ 08/12/19 21:00 09/11/19 20:59 08/22/19 21:23 Fluconazole/ Sodium Chloride 100 ml @ 100 mls/hr Q24H IV 08/18/19 13:00 08/29/19 23:59 08/22/19 15:34 Hydralazine HCl (Apresoline) 10 mg Q4H PRN IV For High Blood Pressure 08/18/19 12:44 09/17/19 12:43 08/22/19 09:22 Hydralazine HCl (Apresoline) 25 mg Q6HR NG 08/23/19 06:00 09/22/19 05:59 Lansoprazole (Prevacid) 30 mg BID GT 08/19/19 09:00 09/18/19 08:59 08/22/19 18:10 Levothyroxine Sodium (Synthroid) 75 mcg DAILY@0630 ORAL 08/22/19 06:30 09/21/19 06:29 08/22/19 06:19 Lorazepam (Ativan 2mg/ml 1ml) 1 mg Q3H PRN IV For Anxiety 08/17/19 11:30 08/24/19 11:29 Meropenem 500 mg/ Sodium Chloride 55 ml @ 110 mls/hr EVERY 12 HOURS IVPB 08/22/19 21:00 08/27/19 20:59 08/22/19 20:59 Metoclopramide HCl (Reglan) 5 mg Q8H PRN IVP Nausea & Vomiting 08/09/19 12:39 09/08/19 12:38 Nitroglycerin (Nitro-Bid) 1 inch Q6HR TOPIC 08/09/19 12:39 09/08/19 12:38 08/23/19 00:25 Antonio Jacome MD Aug 23, 2019 06:15
[2019-08-23] MEDS: HydrALAZINE 25mg tab NG SCH ×3 (06:16→17:08)
[2019-08-23] MEDS: Meropenem 500 MG in NS 55 ML IVPB SCH ×2 (09:00→20:44)
--- NOTE | 2019-08-23 09:00 | Critical Care Progress Note ---
Assessment/Plan Assessment/Plan respiratory failure hemoptysis resolved hypoxemia chronic renal failure toxic met encephalopathy severe protein calorie malnutrition cachexia left lung whiteout/collapse, improved with intubation s/p intubation anemia pulmonary edema with elevated BNP PLAN care noted vent support as is failed weaning d/w family as to trach for best weaning and shelter care as still full code keep negative antibiotics noted monitor imaging for change elevated head and monitor ROM watch fluid status nutrition as able off load ICU care and management critical at present requires ICU management and close follow up care feeds as able medications/laboratory data/nursing notes/ICU care reviewed in detail note reviewed and edited care discussed with RN and RT ICU time spent >40 minutes coordinating care Critical Care - Subjective Interval Events: remains on vent reduced LOC ICU care noted and reviewed events discussed ROS Limited/Unobtainable: Yes Condition: critical EKG Rhythm: Sinus Rhythm Residuals: minimal Tube Feeding Tolerated: yes I&O: Intake and Output 08/22/19 08/23/19 19:00 07:00 Intake Total 520 ml 405 ml Balance 520 ml 405 ml IV Total 100 ml 55 ml Tube Feeding 420 ml 350 ml # Bowel Movements 2 Critical Care - Objective ET-Tube: 7.0 ET Position: 19 Last 24 Hour Vital Signs Date Time Temp Pulse Resp B/P (MAP) Pulse Ox O2 Delivery O2 Flow Rate FiO2 08/23/19 07:24 50 08/23/19 07:11 79 18 70 08/23/19 07:00 79 24 148/76 (100) 100 08/23/19 06:30 80 24 08/23/19 06:16 160/79 08/23/19 06:16 160/79 08/23/19 06:00 79 26 160/79 (106) 100 08/23/19 05:27 82 19 70 08/23/19 05:00 76 28 152/81 (104) 100 08/23/19 04:00 70 08/23/19 04:00 68 08/23/19 04:00 98.0 70 24 147/90 (109) 100 08/23/19 04:00 Mechanical Ventilator Mechanical Ventilator 08/23/19 03:40 78 18 70 08/23/19 03:00 67 30 158/82 (107) 99 08/23/19 02:00 67 21 178/77 (110) 100 08/23/19 01:57 63 178/77 08/23/19 01:06 77 21 70 08/23/19 01:00 67 25 162/73 (102) 99 08/23/19 00:25 164/82 08/23/19 00:25 164/82 08/23/19 00:00 98.0 66 24 164/82 (109) 99 08/23/19 00:00 68 08/23/19 00:00 70 08/23/19 00:00 Mechanical Ventilator Mechanical Ventilator 08/22/19 23:15 72 19 70 08/22/19 23:00 62 24 153/98 (116) 100 08/22/19 22:00 62 20 155/90 (111) 100 08/22/19 21:08 66 20 70 08/22/19 21:00 63 33 156/89 (111) 99 08/22/19 20:00 70 08/22/19 20:00 81 08/22/19 20:00 97.8 65 25 147/79 (101) 100 08/22/19 20:00 Mechanical Ventilator Mechanical Ventilator 08/22/19 19:30 64 18 70 08/22/19 19:00 66 25 137/107 (117) 100 08/22/19 18:09 129/28 08/22/19 18:09 129/98 08/22/19 18:00 67 22 129/98 (108) 100 08/22/19 17:00 65 26 152/98 (116) 100 08/22/19 16:52 99 24 70 08/22/19 16:00 Mechanical Ventilator Mechanical Ventilator 08/22/19 16:00 70 08/22/19 16:00 97.6 60 18 155/63 (93) 94 08/22/19 15:42 60 08/22/19 15:30 66 19 70 08/22/19 15:00 73 34 150/120 (130) 100 08/22/19 14:00 74 25 146/73 (97) 92 08/22/19 13:00 84 22 154/79 (104) 100 08/22/19 12:50 100 08/22/19 12:50 68 18 60 08/22/19 12:02 136/88 08/22/19 12:01 136/88 08/22/19 12:00 97.8 67 28 156/89 (111) 99 67 08/22/19 12:00 40 08/22/19 12:00 Mechanical Ventilator Mechanical Ventilator 08/22/19 11:36 61 08/22/19 11:00 61 18 136/62 (86) 100 61 08/22/19 10:00 70 24 135/96 (109) 99 70 08/22/19 09:56 71 18 4 40 08/22/19 09:22 168/71 08/22/19 09:00 98.0 56 18 161/70 (100) 100 56 Labs: Labs Test 08/21/19 04:00 08/22/19 08:30 White Blood Count 7.5 K/UL (4.8-10.8) 5.9 K/UL (4.8-10.8) Red Blood Count 3.25 M/UL (4.20-5.40) 3.15 M/UL (4.20-5.40) Hemoglobin 10.0 G/DL (12.0-16.0) 9.7 G/DL (12.0-16.0) Hematocrit 29.8 % (37.0-47.0) 28.7 % (37.0-47.0) Mean Corpuscular Volume 92 FL (80-99) 91 FL (80-99) Mean Corpuscular Hemoglobin 30.7 PG (27.0-31.0) 30.8 PG (27.0-31.0) Mean Corpuscular Hemoglobin Concent 33.5 G/DL (32.0-36.0) 33.8 G/DL (32.0-36.0) Red Cell Distribution Width 18.4 % (11.6-14.8) 18.3 % (11.6-14.8) Platelet Count 341 K/UL (150-450) 316 K/UL (150-450) Mean Platelet Volume 7.0 FL (6.5-10.1) 7.1 FL (6.5-10.1) Neutrophils (%) (Auto) 62.6 % (45.0-75.0) 53.2 % (45.0-75.0) Lymphocytes (%) (Auto) 30.7 % (20.0-45.0) 38.3 % (20.0-45.0) Monocytes (%) (Auto) 5.0 % (1.0-10.0) 6.0 % (1.0-10.0) Eosinophils (%) (Auto) 0.7 % (0.0-3.0) 0.9 % (0.0-3.0) Basophils (%) (Auto) 1.0 % (0.0-2.0) 1.7 % (0.0-2.0) Sodium Level 140 MMOL/L (136-145) 138 MMOL/L (136-145) Potassium Level 3.3 MMOL/L (3.5-5.1) 3.7 MMOL/L (3.5-5.1) Chloride Level 102 MMOL/L (98-107) 103 MMOL/L (98-107) Carbon Dioxide Level 27 MMOL/L (21-32) 25 MMOL/L (21-32) Anion Gap 11 mmol/L (5-15) 10 mmol/L (5-15) Blood Urea Nitrogen 26 mg/dL (7-18) 34 mg/dL (7-18) Creatinine 3.1 MG/DL (0.55-1.30) 3.5 MG/DL (0.55-1.30) Estimat Glomerular Filtration Rate 14.5 mL/min (>60) 12.6 mL/min (>60) Glucose Level 129 MG/DL (74-106) 120 MG/DL (74-106) Calcium Level 8.4 MG/DL (8.5-10.1) 8.4 MG/DL (8.5-10.1) Phosphorus Level 2.1 MG/DL (2.5-4.9) 3.4 MG/DL (2.5-4.9) Magnesium Level 1.9 MG/DL (1.8-2.4) 1.9 MG/DL (1.8-2.4) Total Bilirubin 0.5 MG/DL (0.2-1.0) 0.5 MG/DL (0.2-1.0) Aspartate Amino Transf (AST/SGOT) 22 U/L (15-37) 16 U/L (15-37) Alanine Aminotransferase (ALT/SGPT) 7 U/L (12-78) 8 U/L (12-78) Alkaline Phosphatase 167 U/L (46-116) 151 U/L (46-116) C-Reactive Protein, Quantitative 3.1 mg/dL (0.00-0.90) Pro-B-Type Natriuretic Peptide > 17876 pg/mL (0-125) Total Protein 5.5 G/DL (6.4-8.2) 5.0 G/DL (6.4-8.2) Albumin 1.6 G/DL (3.4-5.0) 1.2 G/DL (3.4-5.0) Globulin 3.9 g/dL 3.8 g/dL Albumin/Globulin Ratio 0.4 (1.0-2.7) 0.3 (1.0-2.7) Objective: WDWN NAD intubated reduced breath sounds bilaterally without rhonchi or wheeze [id number] without MRG NABS nontender no HSM no CCE contractures feeding tube in place no distention poorly responsive nonfocal cachectic reviewed and edited Micro: Microbiology Date/Time Source Procedure Growth Status 08/22/19 04:30 Other Blood Culture - Preliminary NO GROWTH AFTER 24 HOURS Resulted 08/22/19 00:55 Sputum Gram Stain - Final Resulted 08/22/19 00:55 Sputum Sputum Culture - Preliminary NO GROWTH Resulted Accucheck: 131 Malcolm Cruz MD Aug 23, 2019 09:00
[2019-08-23 09:35] LABS: BASOPHILS % (AUTO) 1.7 % (0.0-2.0); EOSINOPHILS % (AUTO) 1.4 % (0.0-3.0); HEMATOCRIT 31.5 % (37.0-47.0); HEMOGLOBIN 10.5 G/DL (12.0-16.0); LYMPHOCYTES % (AUTO) 27.4 % (20.0-45.0); MEAN CORPUSCULAR VOLUME 91 FL (80-99); MONOCYTES % (AUTO) 4.6 % (1.0-10.0); NEUTROPHILS % (AUTO) 64.8 % (45.0-75.0); PLATELET COUNT 388 K/UL (150-450); RED BLOOD COUNT 3.45 M/UL (4.20-5.40); RED CELL DISTRIBUTION WIDTH 17.6 % (11.6-14.8); WHITE BLOOD COUNT 6.1 K/UL (4.8-10.8)
[2019-08-23 09:50] LABS: ANION GAP 8 mmol/L (5-15); BLOOD UREA NITROGEN 45 mg/dL (7-18); CALCIUM 8.6 MG/DL (8.5-10.1); CARBON DIOXIDE 27 MMOL/L (21-32); CHLORIDE 101 MMOL/L (98-107); CREATININE 3.6 MG/DL (0.55-1.30); POTASSIUM 4.4 MMOL/L (3.5-5.1); SODIUM 136 MMOL/L (136-145)
--- NOTE | 2019-08-23 12:02 | Infectious Diseases Prog Note ---
Assessment/Plan Assessment/Plan antibiotics : meropenem, fluconazole A 1. jarad albicans fungemia 2. right shoulder septic arthritis with staph aureus s/p rx 3. renal failure 4. thrombocytopenia resolved 7. diabetes mellitus 8. hypertension 9. respiratory failure P 1. continue meropenem 2. continue fluconazole 6 more days 3. will follow up cultures Subjective ROS Limited/Unobtainable: Yes Allergies: Coded Allergies: VANCOMYCIN (Unverified Allergy, Unknown, 08/02/19) Objective Vital Signs Last 24 Hour Vital Signs Date Time Temp Pulse Resp B/P (MAP) Pulse Ox O2 Delivery O2 Flow Rate FiO2 08/23/19 11:00 75 17 144/80 (101) 96 08/23/19 10:00 80 22 131/92 (105) 98 08/23/19 09:25 78 11 50 08/23/19 09:00 79 19 126/89 (101) 99 08/23/19 08:00 81 08/23/19 08:00 70 08/23/19 08:00 Mechanical Ventilator Mechanical Ventilator 08/23/19 08:00 99.4 79 19 144/78 (100) 100 08/23/19 07:26 98 08/23/19 07:24 50 08/23/19 07:11 79 18 70 08/23/19 07:00 79 24 148/76 (100) 100 08/23/19 06:30 80 24 08/23/19 06:16 160/79 08/23/19 06:16 160/79 08/23/19 06:00 79 26 160/79 (106) 100 08/23/19 05:27 82 19 70 08/23/19 05:00 76 28 152/81 (104) 100 08/23/19 04:00 70 08/23/19 04:00 68 08/23/19 04:00 98.0 70 24 147/90 (109) 100 08/23/19 04:00 Mechanical Ventilator Mechanical Ventilator 08/23/19 03:40 78 18 70 08/23/19 03:00 67 30 158/82 (107) 99 08/23/19 02:00 67 21 178/77 (110) 100 08/23/19 01:57 63 178/77 08/23/19 01:06 77 21 70 08/23/19 01:00 67 25 162/73 (102) 99 08/23/19 00:25 164/82 08/23/19 00:25 164/82 08/23/19 00:00 98.0 66 24 164/82 (109) 99 08/23/19 00:00 68 08/23/19 00:00 70 08/23/19 00:00 Mechanical Ventilator Mechanical Ventilator 08/22/19 23:15 72 19 70 08/22/19 23:00 62 24 153/98 (116) 100 08/22/19 22:00 62 20 155/90 (111) 100 08/22/19 21:08 66 20 70 08/22/19 21:00 63 33 156/89 (111) 99 08/22/19 20:00 70 08/22/19 20:00 81 08/22/19 20:00 97.8 65 25 147/79 (101) 100 08/22/19 20:00 Mechanical Ventilator Mechanical Ventilator 08/22/19 19:30 64 18 70 08/22/19 19:00 66 25 137/107 (117) 100 08/22/19 18:09 129/28 08/22/19 18:09 129/98 08/22/19 18:00 67 22 129/98 (108) 100 08/22/19 17:00 65 26 152/98 (116) 100 08/22/19 16:52 99 24 70 08/22/19 16:00 Mechanical Ventilator Mechanical Ventilator 08/22/19 16:00 70 08/22/19 16:00 97.6 60 18 155/63 (93) 94 08/22/19 15:42 60 08/22/19 15:30 66 19 70 08/22/19 15:00 73 34 150/120 (130) 100 08/22/19 14:00 74 25 146/73 (97) 92 08/22/19 13:00 84 22 154/79 (104) 100 08/22/19 12:50 100 08/22/19 12:50 68 18 60 08/22/19 12:02 136/88 Height (Feet): 5 Height (Inches): 4.00 Weight (Pounds): 98 HEENT: other - intubated Respiratory/Chest: lungs clear Cardiovascular: normal rate, regular rhythm, no gallop/murmur Abdomen: soft, non tender, other - GT Extremities: no edema, other - right groin catheter Microbiology Date/Time Source Procedure Growth Status 08/22/19 04:30 Other Blood Culture - Preliminary NO GROWTH AFTER 24 HOURS Resulted 08/22/19 00:55 Sputum Gram Stain - Final Resulted 08/22/19 00:55 Sputum Sputum Culture - Preliminary NO GROWTH Resulted Laboratory Tests Test 08/23/19 09:05 08/23/19 09:56 White Blood Count 6.1 K/UL (4.8-10.8) Red Blood Count 3.45 M/UL (4.20-5.40) L Hemoglobin 10.5 G/DL (12.0-16.0) L Hematocrit 31.5 % (37.0-47.0) L Mean Corpuscular Volume 91 FL (80-99) Mean Corpuscular Hemoglobin 30.4 PG (27.0-31.0) Mean Corpuscular Hemoglobin Concent 33.3 G/DL (32.0-36.0) Red Cell Distribution Width 17.6 % (11.6-14.8) H Platelet Count 388 K/UL (150-450) Mean Platelet Volume 7.1 FL (6.5-10.1) Neutrophils (%) (Auto) 64.8 % (45.0-75.0) Lymphocytes (%) (Auto) 27.4 % (20.0-45.0) Monocytes (%) (Auto) 4.6 % (1.0-10.0) Eosinophils (%) (Auto) 1.4 % (0.0-3.0) Basophils (%) (Auto) 1.7 % (0.0-2.0) Sodium Level 136 MMOL/L (136-145) Potassium Level 4.4 MMOL/L (3.5-5.1) Chloride Level 101 MMOL/L (98-107) Carbon Dioxide Level 27 MMOL/L (21-32) Anion Gap 8 mmol/L (5-15) Blood Urea Nitrogen 45 mg/dL (7-18) H Creatinine 3.6 MG/DL (0.55-1.30) H Estimat Glomerular Filtration Rate 12.2 mL/min (>60) Glucose Level 132 MG/DL (74-106) H Calcium Level 8.6 MG/DL (8.5-10.1) Thyroid Stimulating Hormone (TSH) 7.761 uiU/mL (0.358-3.740) Free Thyroxine 1.54 NG/DL (0.76-1.46) H Arterial Blood pH 7.524 (7.350-7.450) Arterial Blood Partial Pressure CO2 33.3 mmHg (35.0-45.0) L Arterial Blood Partial Pressure O2 130.4 mmHg (75.0-100.0) H Arterial Blood HCO3 26.8 mmol/L (22.0-26.0) H Arterial Blood Oxygen Saturation 98.3 % (95-100) Arterial Blood Base Excess 4.2 (-2-2) H Cuauhtemoc Test Positive Current Medications Medications (Trade) Dose Ordered Sig/Javier Route PRN Reason Start Time Stop Time Status Last Admin Dose Admin Albuterol/ Ipratropium (Albuterol/ Ipratropium) 3 ml Q4H PRN HHN Shortness of Breath 08/19/19 07:45 08/24/19 07:44 Amlodipine Besylate (Norvasc) 5 mg BID NG 08/23/19 01:45 09/22/19 01:44 08/23/19 01:57 Atropine Sulfate (Atropine) 1 mg Q4H PRN IVP Per rx protocol 08/13/19 08:30 09/12/19 08:29 Chlorhexidine Gluconate (Nae-Hex 2%) 1 applic DAILY@1999 TOPIC 08/15/19 20:00 09/14/19 19:59 08/22/19 19:55 Dextrose (Dextrose 50%) 50 ml Q30M PRN IV Hypoglycemia 08/11/19 10:30 09/04/19 17:44 08/22/19 15:46 Diphenhydramine HCl (Benadryl) 50 mg Q4H PRN IVP Itching 08/09/19 14:30 09/08/19 14:29 08/13/19 02:39 Epoetin Thomas (Epoetin Thomas(ESRD on dialysis)) 4,000 unit THU-THU-THU SUBQ 08/12/19 21:00 09/11/19 20:59 08/22/19 21:23 Fluconazole/ Sodium Chloride 100 ml @ 100 mls/hr Q24H IV 08/18/19 13:00 08/29/19 23:59 08/22/19 15:34 Hydralazine HCl (Apresoline) 10 mg Q4H PRN IV For High Blood Pressure 08/18/19 12:44 09/17/19 12:43 08/22/19 09:22 Hydralazine HCl (Apresoline) 25 mg Q6HR NG 08/23/19 06:00 09/22/19 05:59 08/23/19 06:16 Lansoprazole (Prevacid) 30 mg BID GT 08/19/19 09:00 09/18/19 08:59 08/23/19 10:19 Levothyroxine Sodium (Synthroid) 75 mcg DAILY@0630 ORAL 08/22/19 06:30 09/21/19 06:29 08/23/19 06:17 Lorazepam (Ativan 2mg/ml 1ml) 1 mg Q3H PRN IV For Anxiety 08/17/19 11:30 08/24/19 11:29 Meropenem 500 mg/ Sodium Chloride 55 ml @ 110 mls/hr EVERY 12 HOURS IVPB 08/22/19 21:00 08/27/19 20:59 08/23/19 09:00 Metoclopramide HCl (Reglan) 5 mg Q8H PRN IVP Nausea & Vomiting 08/09/19 12:39 09/08/19 12:38 Nitroglycerin (Nitro-Bid) 1 inch Q6HR TOPIC 08/09/19 12:39 09/08/19 12:38 08/23/19 06:16 Melissa Solares MD Aug 23, 2019 12:02
--- NOTE | 2019-08-23 12:18 | Nephrology Progress Note ---
Assessment/Plan Problem List: (1) ESRD (end stage renal disease) on dialysis (2) Malnutrition (3) Anemia in CKD (chronic kidney disease) (4) Hypotension (5) Thrombocytopenia (6) Sepsis Assessment: klebsiella in blood Assessment -Early sepsis with shock. -Healthcare-associated pneumonia. -Severe protein-calorie malnutrition. -Thrombocytopenia. - End-stage renal disease. - History of hypertension. - Bradycardia. - HypoThyroid Plan Was dialyzed August 19 will arrange for dialysis August 22 Blood pressure fluctuating, will start hydralazine via NG tube for blood pressure Magnesium and potassium supplement intravenously as needed Patient underwent PEG placement August 16 patient remains intubated on ventilator Discussed with RN Aim to wean from ventilator or consider tracheostomy Permacath was removed on August 12 Dialysis 08/11 Transfusion as needed Patient had hematemesis meds IV as possible Surveillance blood cultures tomorrow Plan to put the permacath back in on Thursday if cultures are negative keep BP and BS in check Inflammatory markers per orders Subjective ROS Limited/Unobtainable: Yes Objective Objective Last 24 Hour Vital Signs Date Time Temp Pulse Resp B/P (MAP) Pulse Ox O2 Delivery O2 Flow Rate FiO2 08/23/19 12:00 77 08/23/19 12:00 78 15 148/98 (115) 96 08/23/19 11:00 75 17 144/80 (101) 96 08/23/19 10:00 80 22 131/92 (105) 98 08/23/19 09:25 78 11 50 08/23/19 09:00 79 19 126/89 (101) 99 08/23/19 08:00 81 08/23/19 08:00 70 08/23/19 08:00 Mechanical Ventilator Mechanical Ventilator 08/23/19 08:00 99.4 79 19 144/78 (100) 100 08/23/19 07:26 98 08/23/19 07:24 50 08/23/19 07:11 79 18 70 08/23/19 07:00 79 24 148/76 (100) 100 08/23/19 06:30 80 24 08/23/19 06:16 160/79 08/23/19 06:16 160/79 08/23/19 06:00 79 26 160/79 (106) 100 08/23/19 05:27 82 19 70 08/23/19 05:00 76 28 152/81 (104) 100 08/23/19 04:00 70 08/23/19 04:00 68 08/23/19 04:00 98.0 70 24 147/90 (109) 100 08/23/19 04:00 Mechanical Ventilator Mechanical Ventilator 08/23/19 03:40 78 18 70 08/23/19 03:00 67 30 158/82 (107) 99 08/23/19 02:00 67 21 178/77 (110) 100 08/23/19 01:57 63 178/77 08/23/19 01:06 77 21 70 08/23/19 01:00 67 25 162/73 (102) 99 08/23/19 00:25 164/82 08/23/19 00:25 164/82 08/23/19 00:00 98.0 66 24 164/82 (109) 99 08/23/19 00:00 68 08/23/19 00:00 70 08/23/19 00:00 Mechanical Ventilator Mechanical Ventilator 08/22/19 23:15 72 19 70 08/22/19 23:00 62 24 153/98 (116) 100 08/22/19 22:00 62 20 155/90 (111) 100 08/22/19 21:08 66 20 70 08/22/19 21:00 63 33 156/89 (111) 99 08/22/19 20:00 70 08/22/19 20:00 81 08/22/19 20:00 97.8 65 25 147/79 (101) 100 08/22/19 20:00 Mechanical Ventilator Mechanical Ventilator 08/22/19 19:30 64 18 70 08/22/19 19:00 66 25 137/107 (117) 100 08/22/19 18:09 129/28 08/22/19 18:09 129/98 08/22/19 18:00 67 22 129/98 (108) 100 08/22/19 17:00 65 26 152/98 (116) 100 08/22/19 16:52 99 24 70 08/22/19 16:00 Mechanical Ventilator Mechanical Ventilator 08/22/19 16:00 70 08/22/19 16:00 97.6 60 18 155/63 (93) 94 08/22/19 15:42 60 08/22/19 15:30 66 19 70 08/22/19 15:00 73 34 150/120 (130) 100 08/22/19 14:00 74 25 146/73 (97) 92 08/22/19 13:00 84 22 154/79 (104) 100 08/22/19 12:50 100 08/22/19 12:50 68 18 60 Intake and Output 08/22/19 08/23/19 19:00 07:00 Intake Total 520 ml 405 ml Balance 520 ml 405 ml IV Total 100 ml 55 ml Tube Feeding 420 ml 350 ml # Bowel Movements 2 Current Medications Medications (Trade) Dose Ordered Sig/Javier Route PRN Reason Start Time Stop Time Status Last Admin Dose Admin Albuterol/ Ipratropium (Albuterol/ Ipratropium) 3 ml Q4H PRN HHN Shortness of Breath 08/19/19 07:45 08/24/19 07:44 Amlodipine Besylate (Norvasc) 5 mg BID NG 08/23/19 01:45 09/22/19 01:44 08/23/19 01:57 Atropine Sulfate (Atropine) 1 mg Q4H PRN IVP Per rx protocol 08/13/19 08:30 09/12/19 08:29 Chlorhexidine Gluconate (Nae-Hex 2%) 1 applic DAILY@2000 TOPIC 08/15/19 20:00 09/14/19 19:59 08/22/19 19:55 Dextrose (Dextrose 50%) 50 ml Q30M PRN IV Hypoglycemia 08/11/19 10:30 09/04/19 17:44 08/22/19 15:46 Diphenhydramine HCl (Benadryl) 50 mg Q4H PRN IVP Itching 08/09/19 14:30 09/08/19 14:29 08/13/19 02:39 Epoetin Thomas (Epoetin Thomas(ESRD on dialysis)) 4,000 unit THU-THU-THU SUBQ 08/12/19 21:00 09/11/19 20:59 08/22/19 21:23 Fluconazole/ Sodium Chloride 100 ml @ 100 mls/hr Q24H IV 08/18/19 13:00 08/29/19 23:59 08/22/19 15:34 Hydralazine HCl (Apresoline) 10 mg Q4H PRN IV For High Blood Pressure 08/18/19 12:44 09/17/19 12:43 08/22/19 09:22 Hydralazine HCl (Apresoline) 25 mg Q6HR NG 08/23/19 06:00 09/22/19 05:59 08/23/19 06:16 Lansoprazole (Prevacid) 30 mg BID GT 08/19/19 09:00 09/18/19 08:59 08/23/19 10:19 Levothyroxine Sodium (Synthroid) 75 mcg DAILY@0630 ORAL 08/22/19 06:30 09/21/19 06:29 08/23/19 06:17 Lorazepam (Ativan 2mg/ml 1ml) 1 mg Q3H PRN IV For Anxiety 08/17/19 11:30 08/24/19 11:29 Meropenem 500 mg/ Sodium Chloride 55 ml @ 110 mls/hr EVERY 12 HOURS IVPB 08/22/19 21:00 08/27/19 20:59 08/23/19 09:00 Metoclopramide HCl (Reglan) 5 mg Q8H PRN IVP Nausea & Vomiting 08/09/19 12:39 09/08/19 12:38 Nitroglycerin (Nitro-Bid) 1 inch Q6HR TOPIC 08/09/19 12:39 09/08/19 12:38 08/23/19 06:16 Laboratory Tests 08/23/19 09:05: White Blood Count 6.1, Red Blood Count 3.45L, Hemoglobin 10.5L, Hematocrit 31.5L , Mean Corpuscular Volume 91, Mean Corpuscular Hemoglobin 30.4, Mean Corpuscular Hemoglobin Concent 33.3, Red Cell Distribution Width 17.6H, Platelet Count 388, Mean Platelet Volume 7.1, Neutrophils (%) (Auto) 64.8, Lymphocytes (%) (Auto) 27.4, Monocytes (%) (Auto) 4.6, Eosinophils (%) (Auto) 1.4, Basophils (%) (Auto) 1.7, Sodium Level 136, Potassium Level 4.4, Chloride Level 101, Carbon Dioxide Level 27, Anion Gap 8, Blood Urea Nitrogen 45H, Creatinine 3.6H, Estimat Glomerular Filtration Rate 12.2, Glucose Level 132H, Calcium Level 8.6, Thyroid Stimulating Hormone (TSH) 7.761H, Free Thyroxine 1.54H 08/23/19 09:56: Arterial Blood pH 7.524H, Arterial Blood Partial Pressure CO2 33.3L, Arterial Blood Partial Pressure O2 130.4H, Arterial Blood HCO3 26.8H, Arterial Blood Oxygen Saturation 98.3, Arterial Blood Base Excess 4.2H, Cuauhtemoc Test Positive Height (Feet): 5 Height (Inches): 4.00 Weight (Pounds): 98 General Appearance: no apparent distress EENT: other - Remains intubated on the ventilator Cardiovascular: normal rate Respiratory/Chest: decreased breath sounds Abdomen: soft Objective no change William Blackwood MD Aug 23, 2019 12:18
--- NOTE | 2019-08-23 13:15 | Surgery Progress Note ---
Surgery Progress Note Subjective Procedure Performed Right Femoral Temporary Hemodialysis catheter Insertion Additional Comments no acute events trying to wean from vent ill appearing Objective Last 24 Hour Vital Signs Date Time Temp Pulse Resp B/P (MAP) Pulse Ox O2 Delivery O2 Flow Rate FiO2 08/23/19 12:00 77 08/23/19 12:00 78 15 148/98 (115) 96 08/23/19 11:00 75 17 144/80 (101) 96 08/23/19 10:00 80 22 131/92 (105) 98 08/23/19 09:25 78 11 50 08/23/19 09:00 79 19 126/89 (101) 99 08/23/19 08:00 81 08/23/19 08:00 70 08/23/19 08:00 Mechanical Ventilator Mechanical Ventilator 08/23/19 08:00 99.4 79 19 144/78 (100) 100 08/23/19 07:26 98 08/23/19 07:24 50 08/23/19 07:11 79 18 70 08/23/19 07:00 79 24 148/76 (100) 100 08/23/19 06:30 80 24 08/23/19 06:16 160/79 08/23/19 06:16 160/79 08/23/19 06:00 79 26 160/79 (106) 100 08/23/19 05:27 82 19 70 08/23/19 05:00 76 28 152/81 (104) 100 08/23/19 04:00 70 08/23/19 04:00 68 08/23/19 04:00 98.0 70 24 147/90 (109) 100 08/23/19 04:00 Mechanical Ventilator Mechanical Ventilator 08/23/19 03:40 78 18 70 08/23/19 03:00 67 30 158/82 (107) 99 08/23/19 02:00 67 21 178/77 (110) 100 08/23/19 01:57 63 178/77 08/23/19 01:06 77 21 70 08/23/19 01:00 67 25 162/73 (102) 99 08/23/19 00:25 164/82 08/23/19 00:25 164/82 08/23/19 00:00 98.0 66 24 164/82 (109) 99 08/23/19 00:00 68 08/23/19 00:00 70 08/23/19 00:00 Mechanical Ventilator Mechanical Ventilator 08/22/19 23:15 72 19 70 08/22/19 23:00 62 24 153/98 (116) 100 08/22/19 22:00 62 20 155/90 (111) 100 08/22/19 21:08 66 20 70 08/22/19 21:00 63 33 156/89 (111) 99 08/22/19 20:00 70 08/22/19 20:00 81 08/22/19 20:00 97.8 65 25 147/79 (101) 100 08/22/19 20:00 Mechanical Ventilator Mechanical Ventilator 08/22/19 19:30 64 18 70 08/22/19 19:00 66 25 137/107 (117) 100 08/22/19 18:09 129/28 08/22/19 18:09 129/98 08/22/19 18:00 67 22 129/98 (108) 100 08/22/19 17:00 65 26 152/98 (116) 100 08/22/19 16:52 99 24 70 08/22/19 16:00 Mechanical Ventilator Mechanical Ventilator 08/22/19 16:00 70 08/22/19 16:00 97.6 60 18 155/63 (93) 94 08/22/19 15:42 60 08/22/19 15:30 66 19 70 08/22/19 15:00 73 34 150/120 (130) 100 08/22/19 14:00 74 25 146/73 (97) 92 I&O Intake and Output 08/22/19 08/23/19 19:00 07:00 Intake Total 520 ml 405 ml Balance 520 ml 405 ml IV Total 100 ml 55 ml Tube Feeding 420 ml 350 ml # Bowel Movements 2 Dressing: other Wound: other Drains: other Cardiovascular: RSR, other Respiratory: decreased breath sounds, other Abdomen: soft, present bowel sounds, other Extremities: no cyanosis Laboratory Tests Test 08/23/19 09:05 08/23/19 09:56 White Blood Count 6.1 K/UL (4.8-10.8) Red Blood Count 3.45 M/UL (4.20-5.40) L Hemoglobin 10.5 G/DL (12.0-16.0) L Hematocrit 31.5 % (37.0-47.0) L Mean Corpuscular Volume 91 FL (80-99) Mean Corpuscular Hemoglobin 30.4 PG (27.0-31.0) Mean Corpuscular Hemoglobin Concent 33.3 G/DL (32.0-36.0) Red Cell Distribution Width 17.6 % (11.6-14.8) H Platelet Count 388 K/UL (150-450) Mean Platelet Volume 7.1 FL (6.5-10.1) Neutrophils (%) (Auto) 64.8 % (45.0-75.0) Lymphocytes (%) (Auto) 27.4 % (20.0-45.0) Monocytes (%) (Auto) 4.6 % (1.0-10.0) Eosinophils (%) (Auto) 1.4 % (0.0-3.0) Basophils (%) (Auto) 1.7 % (0.0-2.0) Sodium Level 136 MMOL/L (136-145) Potassium Level 4.4 MMOL/L (3.5-5.1) Chloride Level 101 MMOL/L (98-107) Carbon Dioxide Level 27 MMOL/L (21-32) Anion Gap 8 mmol/L (5-15) Blood Urea Nitrogen 45 mg/dL (7-18) H Creatinine 3.6 MG/DL (0.55-1.30) H Estimat Glomerular Filtration Rate 12.2 mL/min (>60) Glucose Level 132 MG/DL (74-106) H Calcium Level 8.6 MG/DL (8.5-10.1) Thyroid Stimulating Hormone (TSH) 7.761 uiU/mL (0.358-3.740) Free Thyroxine 1.54 NG/DL (0.76-1.46) H Arterial Blood pH 7.524 (7.350-7.450) Arterial Blood Partial Pressure CO2 33.3 mmHg (35.0-45.0) L Arterial Blood Partial Pressure O2 130.4 mmHg (75.0-100.0) H Arterial Blood HCO3 26.8 mmol/L (22.0-26.0) H Arterial Blood Oxygen Saturation 98.3 % (95-100) Arterial Blood Base Excess 4.2 (-2-2) H Cuauhtemoc Test Positive Assessment Post-op Diagnosis same Plan Problems: (1) Malnutrition Assessment & Plan: DAILY ESTIMATED NEEDS: Needs based on ESRD+ HD, underweight, wound/ 39.5kg 35-40 kcals/kg 5529-3493 total kcals 1.25-1.8 g protein/kg 49-71 g total protein 20-22 mL/kg 790-869 total fluid mLs NUTRITION DIAGNOSIS: * Increased kcal and protein needs r/t underweight status, HD needs, wuond healing as evidenced by pt is underweight per guidelines, ESRD, on HD, admitted non-blanching erythema wounds @ BL heels and sacrum * Swallowing difficulty R/T dysphagia as evidenced by TRADING ANALYST recommends temporary nonoral feeding at this time, s/p NGT insertion, on NGT feeding-> now s/p self removal, NPO. CURRENT TF:NPO PO DIET RECOMMENDATIONS: WHEN SAFE FOR ORAL DIET -> renal/ texture per TRADING ANALYST ENTERAL NUTRITION RECOMMENDATIONS: W/ GI access: Nepro @ 35ml/hr x 22 hrs to provide 770ml, 1386kcal, 62g prot, 560ml free water * W/ GI access, resume TF on Nepro * Initiate Nepro @ 15ml/hr x 6 hrs, advance 10ml q 4-6 hrs as tolerated to goal rate. * Hold 1 hour before and after Synthroid med * HOB over 30 degrees/ water flush per MD. ADDITIONAL RECOMMENDATIONS: 1) Calibrated bed scale wt for accurate CBW -> daily wt monitoring Per HD record: dry wt on 07/30=39.5kg (87lbs) 2) Wound care: (W/ GI access) add Nephorivte x 1 + Balta BID 3) Monitor NPO status: without GI access at this time, s/p pulling out NGT 4) Monitor for hypoglycemia while NPO 5) Monitor for continuity of HD (2) Septic arthritis Assessment & Plan: Pt presented on admission with generalized scaly rash . pt noted to be restless and scratching at skin. Bleeding from oral mucosa noted. Joint deformity noted to R shoulder. Surgical incision approximated with 11 sutures. Erythema but no exudate,or elevation in skin temp at site of incision. Historical incision R hip that is tunneled.Small amt seropurulent exudate noted. Periwound is erythematous,but no elevation in skin temp noted. No odor noted. Non-blanching erythema noted to sacrum. Perianal area is erythematous and excoriated. L heel is boggy with non-blanching erythema. R heel is soft with non-blanching erythema. No evidence of skin breakdown to all other bony prominences. Tx.plan: Cover R shoulder with Drsg and change daily and prn. Cleanse R hip wound with Saline. Apply Therahoney.Apply Cavilon Skin Barrier periwound. Cover with Optifoam drsg. Change every 3 days and prn. Apply Moisture Barrier Paste to perianal area and buttocks. Cover Sacrum with Optifoam drsg. Change every 3 days and prn. Apply Cavilon Skin Barrier to both heels. Cover each heel with Optifoam drsg. Change every 7 days and prn. APM/ELVIA Mattress overlay. Reposition at least every 2hours or as tolerated. Off-load heels with pillow. HD cath necessary HD as renal likely will need intubation (3) Wound, open, hip or thigh with complication Assessment & Plan: slow healing will need nutritional optimization difficult ng tube peg when stable sutures removed from right shoulder comfortable wean vent may need trach (4) Abscess of right hip (5) possible septic arthritis Camilo James Aug 23, 2019 13:15
--- NOTE | 2019-08-23 15:03 | Hematology/Onc Progress Note ---
Assessment/Plan Assessment/Plan # Thrombocytopenia - potential causes multifactorial, evaluate liver and viral etiologies to begin, in this case due to sepsis with septic shock also with cirrhosis and liver disease --> Hep panel and HIV ordered -> neg --> US abd to evaluate for cirrhosis and hsm ordered --> reviewed --> Peripheral smear ordered to evaluate for blasts /schistocytes --> abx and other meds have been reviewed --> ok for ppx if plt >50k w/ either heparin or lovenox --> Transfuse if Plt < 20k and fever, or if Plt < 10k without fever --> okay for permacath change once plt better--> for 08/14 --> plt trend: 43-->83-->237k-->292-->341-->315-->388 # Anemia of chronic disease due to underlying chronic medical issues, multifactorial v Gi bleed --> Anemia workup has been ordered, rule out gi bleed --> No evidence of hemolysis is noted, peripheral smear has been reviewed. --> Hgb goal >7. Transfuse prn. --> Epogen has been started --> HOLD OFF IRON ferritin is >1000 --> Medications have been reviewed --> low threshold for gi evaluation in case has occult + --> hgb 9-->6.7-->9.2 -->10.5-->10.6 -->10.7-->10-->10.5 --> blood tx: 08/11 # Early sepsis with shock. --> abx as per id, recs noted # Healthcare-associated pneumonia. --> recs reviewed --> abx: jung/micafungin-->jung # Severe protein-calorie malnutrition. --> nutritional support # End-stage renal disease --> had as renal hd --> with permacath # History of hypertension. --> per cards, now with Bradycardia. # resp failure s/p vent # HypoThyroid # Ngt feedings # Dvt ppx scd's The timing of this note does not necessarily reflect the time of the patient was seen. Greatly appreciate consultation. Subjective Allergies: Coded Allergies: VANCOMYCIN (Unverified Allergy, Unknown, 08/02/19) Subjective 08/11: no bleeding or chills, labs reviewed, no major bleeding, plt less than 50k 08/12: icu, s/p blood, hgb improved to 9.2, 08/14: icu, pending consent for thora and permacath, labs reviewed 08/15: new permacath placed, no bleeding, for hd, plt much improved, started lovenox sq 08/16: ett to be adjusted, bp on high end, micafungin started, possible bronch 08/17: weaning as per pulm, no events otherwise, labs noted 08/18: no events no bleeding, remains confused on vent, for hd 08/20: icu, failed to wean, labs reviewed, jung 08/21: resting in bed, no overnight events, labs reviewed 08/22: awake, confused, restraints, no overnight events, Objective Objective Current Medications Medications (Trade) Dose Ordered Sig/Javier Route PRN Reason Start Time Stop Time Status Last Admin Dose Admin Albuterol/ Ipratropium (Albuterol/ Ipratropium) 3 ml Q4H PRN HHN Shortness of Breath 08/19/19 07:45 08/24/19 07:44 Amlodipine Besylate (Norvasc) 5 mg BID NG 08/23/19 01:45 09/22/19 01:44 08/23/19 01:57 Atropine Sulfate (Atropine) 1 mg Q4H PRN IVP Per rx protocol 08/13/19 08:30 09/12/19 08:29 Chlorhexidine Gluconate (Nae-Hex 2%) 1 applic DAILY@2000 TOPIC 08/15/19 20:00 09/14/19 19:59 08/22/19 19:55 Dextrose (Dextrose 50%) 50 ml Q30M PRN IV Hypoglycemia 08/11/19 10:30 09/04/19 17:44 08/22/19 15:46 Diphenhydramine HCl (Benadryl) 50 mg Q4H PRN IVP Itching 08/09/19 14:30 09/08/19 14:29 08/13/19 02:39 Epoetin Thomas (Epoetin Thomas(ESRD on dialysis)) 4,000 unit THU-WED-THU SUBQ 08/12/19 21:00 09/11/19 20:59 08/22/19 21:23 Fluconazole/ Sodium Chloride 100 ml @ 100 mls/hr Q24H IV 08/18/19 13:00 08/29/19 23:59 08/23/19 14:21 Hydralazine HCl (Apresoline) 10 mg Q4H PRN IV For High Blood Pressure 08/18/19 12:44 09/17/19 12:43 08/22/19 09:22 Hydralazine HCl (Apresoline) 25 mg Q6HR NG 08/23/19 06:00 09/22/19 05:59 08/23/19 06:16 Lansoprazole (Prevacid) 30 mg BID GT 08/19/19 09:00 09/18/19 08:59 08/23/19 10:19 Levothyroxine Sodium (Synthroid) 75 mcg DAILY@0630 ORAL 08/22/19 06:30 09/21/19 06:29 08/23/19 06:17 Lorazepam (Ativan 2mg/ml 1ml) 1 mg Q3H PRN IV For Anxiety 08/17/19 11:30 08/24/19 11:29 Meropenem 500 mg/ Sodium Chloride 55 ml @ 110 mls/hr EVERY 12 HOURS IVPB 08/22/19 21:00 08/27/19 20:59 08/23/19 09:00 Metoclopramide HCl (Reglan) 5 mg Q8H PRN IVP Nausea & Vomiting 08/09/19 12:39 09/08/19 12:38 Nitroglycerin (Nitro-Bid) 1 inch Q6HR TOPIC 08/09/19 12:39 09/08/19 12:38 08/23/19 06:16 Last 24 Hour Vital Signs Date Time Temp Pulse Resp B/P (MAP) Pulse Ox O2 Delivery O2 Flow Rate FiO2 08/23/19 14:00 77 22 152/82 (105) 99 08/23/19 13:00 77 17 153/82 (105) 100 08/23/19 12:00 77 08/23/19 12:00 Mechanical Ventilator Mechanical Ventilator 08/23/19 12:00 70 08/23/19 12:00 99.5 79 17 148/98 (115) 98 08/23/19 12:00 78 15 148/98 (115) 96 08/23/19 11:28 83 18 70 08/23/19 11:00 75 17 144/80 (101) 96 08/23/19 10:00 80 22 131/92 (105) 98 08/23/19 09:25 78 11 50 08/23/19 09:00 79 19 126/89 (101) 99 08/23/19 08:00 81 08/23/19 08:00 70 08/23/19 08:00 Mechanical Ventilator Mechanical Ventilator 08/23/19 08:00 99.4 79 19 144/78 (100) 100 08/23/19 07:26 98 08/23/19 07:24 50 08/23/19 07:11 79 18 70 08/23/19 07:00 79 24 148/76 (100) 100 08/23/19 06:30 80 24 08/23/19 06:16 160/79 08/23/19 06:16 160/79 08/23/19 06:00 79 26 160/79 (106) 100 08/23/19 05:27 82 19 70 08/23/19 05:00 76 28 152/81 (104) 100 08/23/19 04:00 70 08/23/19 04:00 68 08/23/19 04:00 98.0 70 24 147/90 (109) 100 08/23/19 04:00 Mechanical Ventilator Mechanical Ventilator 08/23/19 03:40 78 18 70 08/23/19 03:00 67 30 158/82 (107) 99 08/23/19 02:00 67 21 178/77 (110) 100 08/23/19 01:57 63 178/77 08/23/19 01:06 77 21 70 08/23/19 01:00 67 25 162/73 (102) 99 08/23/19 00:25 164/82 08/23/19 00:25 164/82 08/23/19 00:00 98.0 66 24 164/82 (109) 99 08/23/19 00:00 68 08/23/19 00:00 70 08/23/19 00:00 Mechanical Ventilator Mechanical Ventilator 08/22/19 23:15 72 19 70 08/22/19 23:00 62 24 153/98 (116) 100 08/22/19 22:00 62 20 155/90 (111) 100 08/22/19 21:08 66 20 70 08/22/19 21:00 63 33 156/89 (111) 99 08/22/19 20:00 70 08/22/19 20:00 81 08/22/19 20:00 97.8 65 25 147/79 (101) 100 08/22/19 20:00 Mechanical Ventilator Mechanical Ventilator 08/22/19 19:30 64 18 70 08/22/19 19:00 66 25 137/107 (117) 100 08/22/19 18:09 129/28 08/22/19 18:09 129/98 08/22/19 18:00 67 22 129/98 (108) 100 08/22/19 17:00 65 26 152/98 (116) 100 08/22/19 16:52 99 24 70 08/22/19 16:00 Mechanical Ventilator Mechanical Ventilator 08/22/19 16:00 70 08/22/19 16:00 97.6 60 18 155/63 (93) 94 08/22/19 15:42 60 08/22/19 15:30 66 19 70 08/22/19 15:00 73 34 150/120 (130) 100 08/22/19 14:00 74 25 146/73 (97) 92 08/22/19 13:00 84 22 154/79 (104) 100 08/22/19 12:50 100 08/22/19 12:50 68 18 60 08/22/19 12:02 136/88 08/22/19 12:01 136/88 08/22/19 12:00 97.8 67 28 156/89 (111) 99 67 08/22/19 12:00 40 08/22/19 12:00 Mechanical Ventilator Mechanical Ventilator 08/22/19 11:36 61 08/22/19 11:00 61 18 136/62 (86) 100 61 08/22/19 10:00 70 24 135/96 (109) 99 70 08/22/19 09:56 71 18 4 40 08/22/19 09:22 168/71 08/22/19 09:00 98.0 56 18 161/70 (100) 100 56 08/22/19 08:00 55 18 154/77 (102) 100 55 08/22/19 08:00 40 08/22/19 08:00 Mechanical Ventilator Mechanical Ventilator 08/22/19 07:44 56 08/22/19 07:33 57 18 40 08/22/19 07:00 57 20 133/98 (110) 100 08/22/19 06:30 55 18 08/22/19 06:19 169/111 08/22/19 06:18 169/111 08/22/19 06:00 59 20 140/87 (104) 100 08/22/19 05:30 59 18 40 08/22/19 05:00 67 22 150/78 (102) 100 08/22/19 04:00 40 08/22/19 04:00 69 32 133/84 (100) 100 08/22/19 04:00 61 08/22/19 04:00 Mechanical Ventilator Mechanical Ventilator 08/22/19 03:14 60 18 40 08/22/19 03:00 58 18 141/65 (90) 100 08/22/19 02:00 97.8 63 21 175/77 (109) 100 08/22/19 01:00 62 21 139/75 (96) 100 08/22/19 00:58 62 18 40 08/22/19 00:54 160/102 08/22/19 00:53 160/102 08/22/19 00:00 58 18 144/68 (93) 100 08/22/19 00:00 59 08/22/19 00:00 Mechanical Ventilator Mechanical Ventilator 08/21/19 23:45 60 18 100 Mechanical Ventilator 40 08/21/19 23:30 65 18 40 08/21/19 23:00 58 18 140/64 (89) 100 08/21/19 22:00 59 18 154/69 (97) 100 08/21/19 21:15 60 18 40 08/21/19 21:00 60 18 147/92 (110) 100 08/21/19 20:00 97.8 58 18 143/63 (89) 100 08/21/19 20:00 40 08/21/19 20:00 Mechanical Ventilator Mechanical Ventilator 08/21/19 20:00 58 08/21/19 19:30 58 18 40 08/21/19 19:00 59 18 152/66 (94) 100 59 08/21/19 18:35 145/67 08/21/19 18:00 59 18 123/67 (85) 100 59 08/21/19 18:00 123/67 08/21/19 17:00 61 18 148/122 (131) 100 61 08/21/19 16:54 61 18 40 08/21/19 16:00 97.5 60 18 140/67 (91) 100 60 08/21/19 16:00 40 08/21/19 16:00 Mechanical Ventilator Mechanical Ventilator 08/21/19 15:17 60 08/21/19 15:00 69 35 147/69 (95) 100 69 Intake and Output 08/22/19 08/23/19 19:00 07:00 Intake Total 520 ml 405 ml Balance 520 ml 405 ml IV Total 100 ml 55 ml Tube Feeding 420 ml 350 ml # Bowel Movements 2 Labs Test 08/21/19 04:00 08/22/19 08:30 08/23/19 09:05 08/23/19 09:56 White Blood Count 7.5 K/UL (4.8-10.8) 5.9 K/UL (4.8-10.8) 6.1 K/UL (4.8-10.8) Red Blood Count 3.25 M/UL (4.20-5.40) 3.15 M/UL (4.20-5.40) 3.45 M/UL (4.20-5.40) Hemoglobin 10.0 G/DL (12.0-16.0) 9.7 G/DL (12.0-16.0) 10.5 G/DL (12.0-16.0) Hematocrit 29.8 % (37.0-47.0) 28.7 % (37.0-47.0) 31.5 % (37.0-47.0) Mean Corpuscular Volume 92 FL (80-99) 91 FL (80-99) 91 FL (80-99) Mean Corpuscular Hemoglobin 30.7 PG (27.0-31.0) 30.8 PG (27.0-31.0) 30.4 PG (27.0-31.0) Mean Corpuscular Hemoglobin Concent 33.5 G/DL (32.0-36.0) 33.8 G/DL (32.0-36.0) 33.3 G/DL (32.0-36.0) Red Cell Distribution Width 18.4 % (11.6-14.8) 18.3 % (11.6-14.8) 17.6 % (11.6-14.8) Platelet Count 341 K/UL (150-450) 316 K/UL (150-450) 388 K/UL (150-450) Mean Platelet Volume 7.0 FL (6.5-10.1) 7.1 FL (6.5-10.1) 7.1 FL (6.5-10.1) Neutrophils (%) (Auto) 62.6 % (45.0-75.0) 53.2 % (45.0-75.0) 64.8 % (45.0-75.0) Lymphocytes (%) (Auto) 30.7 % (20.0-45.0) 38.3 % (20.0-45.0) 27.4 % (20.0-45.0) Monocytes (%) (Auto) 5.0 % (1.0-10.0) 6.0 % (1.0-10.0) 4.6 % (1.0-10.0) Eosinophils (%) (Auto) 0.7 % (0.0-3.0) 0.9 % (0.0-3.0) 1.4 % (0.0-3.0) Basophils (%) (Auto) 1.0 % (0.0-2.0) 1.7 % (0.0-2.0) 1.7 % (0.0-2.0) Sodium Level 140 MMOL/L (136-145) 138 MMOL/L (136-145) 136 MMOL/L (136-145) Potassium Level 3.3 MMOL/L (3.5-5.1) 3.7 MMOL/L (3.5-5.1) 4.4 MMOL/L (3.5-5.1) Chloride Level 102 MMOL/L (98-107) 103 MMOL/L (98-107) 101 MMOL/L (98-107) Carbon Dioxide Level 27 MMOL/L (21-32) 25 MMOL/L (21-32) 27 MMOL/L (21-32) Anion Gap 11 mmol/L (5-15) 10 mmol/L (5-15) 8 mmol/L (5-15) Blood Urea Nitrogen 26 mg/dL (7-18) 34 mg/dL (7-18) 45 mg/dL (7-18) Creatinine 3.1 MG/DL (0.55-1.30) 3.5 MG/DL (0.55-1.30) 3.6 MG/DL (0.55-1.30) Estimat Glomerular Filtration Rate 14.5 mL/min (>60) 12.6 mL/min (>60) 12.2 mL/min (>60) Glucose Level 129 MG/DL (74-106) 120 MG/DL (74-106) 132 MG/DL (74-106) Calcium Level 8.4 MG/DL (8.5-10.1) 8.4 MG/DL (8.5-10.1) 8.6 MG/DL (8.5-10.1) Phosphorus Level 2.1 MG/DL (2.5-4.9) 3.4 MG/DL (2.5-4.9) Magnesium Level 1.9 MG/DL (1.8-2.4) 1.9 MG/DL (1.8-2.4) Total Bilirubin 0.5 MG/DL (0.2-1.0) 0.5 MG/DL (0.2-1.0) Aspartate Amino Transf (AST/SGOT) 22 U/L (15-37) 16 U/L (15-37) Alanine Aminotransferase (ALT/SGPT) 7 U/L (12-78) 8 U/L (12-78) Alkaline Phosphatase 167 U/L (46-116) 151 U/L (46-116) C-Reactive Protein, Quantitative 3.1 mg/dL (0.00-0.90) Pro-B-Type Natriuretic Peptide > 77218 pg/mL (0-125) Total Protein 5.5 G/DL (6.4-8.2) 5.0 G/DL (6.4-8.2) Albumin 1.6 G/DL (3.4-5.0) 1.2 G/DL (3.4-5.0) Globulin 3.9 g/dL 3.8 g/dL Albumin/Globulin Ratio 0.4 (1.0-2.7) 0.3 (1.0-2.7) Thyroid Stimulating Hormone (TSH) 7.761 uiU/mL (0.358-3.740) Free Thyroxine 1.54 NG/DL (0.76-1.46) Arterial Blood pH 7.524 (7.350-7.450) Arterial Blood Partial Pressure CO2 33.3 mmHg (35.0-45.0) Arterial Blood Partial Pressure O2 130.4 mmHg (75.0-100.0) Arterial Blood HCO3 26.8 mmol/L (22.0-26.0) Arterial Blood Oxygen Saturation 98.3 % (95-100) Arterial Blood Base Excess 4.2 (-2-2) Cuauhtemoc Test Positive Height (Feet): 5 Height (Inches): 4.00 Weight (Pounds): 98 Objective gen: nad pulm: on trach+ / vent cv: rrr, no gmr abd: sfot, nt, nd ++ gt ext: no cce Gio Rob MD Aug 23, 2019 15:03
--- NOTE | 2019-08-23 17:59 | General Progress Note ---
Assessment/Plan Problem List: (1) Failure to thrive (0-17) ICD Codes: R62.51 - Failure to thrive (0-17) SNOMED: 256475401 (2) Hypertensive kidney disease ICD Codes: I12.9 - Hypertensive chronic kidney disease with stage 1 through stage 4 chronic kidney disease, or unspecified chronic kidney disease SNOMED: 01264924 (3) Pneumonia ICD Codes: J18.9 - Pneumonia, unspecified organism SNOMED: 803642707 Qualifiers: Qualified Codes: J18.9 - Pneumonia, unspecified organism (4) ESRD (end stage renal disease) ICD Codes: N18.6 - End stage renal disease SNOMED: 18306382 (5) Septic arthritis ICD Codes: M00.9 - Pyogenic arthritis, unspecified SNOMED: 184788264 (6) Thrombocytopenia ICD Codes: D69.6 - Thrombocytopenia, unspecified SNOMED: 243130947 (7) Hypotension ICD Codes: I95.9 - Hypotension, unspecified SNOMED: 29707908 Qualifiers: Qualified Codes: I95.3 - Hypotension of hemodialysis (8) Malnutrition ICD Codes: E46 - Unspecified protein-calorie malnutrition SNOMED: 36399742 Status: stable, not improved, unchanged, deteriorating Assessment/Plan: cont resp care chest pt/suctioning resp rx cont weaning- try simv No plans for trach. resp/volume status needs to be optimized as much as possible monitor plts iv PPI iv abx HD bp rx critical and guarded tube feeds per gi will d/w family trach vs terminal extubation Subjective ROS Limited/Unobtainable: No Constitutional: Reports: malaise, weakness HEENT: Reports: no symptoms Cardiovascular: Reports: no symptoms Respiratory: Reports: shortness of breath Gastrointestinal/Abdominal: Reports: difficulty swallowing Genitourinary: Reports: no symptoms Neurologic/Psychiatric: Reports: pre-existing deficit Endocrine: Reports: no symptoms Hematologic/Lymphatic: Reports: anemia Allergies: Coded Allergies: VANCOMYCIN (Unverified Allergy, Unknown, 08/02/19) All Systems: reviewed and negative except above Subjective no events. on the vent. remains alert and awake. no fevers. alert. minimal congestion/secretions. cxr with pulm edema. not able to wean yet Objective Last 24 Hour Vital Signs Date Time Temp Pulse Resp B/P (MAP) Pulse Ox O2 Delivery O2 Flow Rate FiO2 08/23/19 17:06 96 22 70 08/23/19 17:00 103 18 136/95 (109) 100 08/23/19 16:00 93 08/23/19 16:00 Mechanical Ventilator Mechanical Ventilator 08/23/19 16:00 99.4 78 17 164/82 (109) 100 08/23/19 16:00 70 08/23/19 15:19 97 18 70 08/23/19 15:00 74 17 162/82 (108) 100 08/23/19 14:00 77 22 152/82 (105) 99 08/23/19 13:09 75 18 70 08/23/19 13:00 77 17 153/82 (105) 100 08/23/19 12:00 77 08/23/19 12:00 Mechanical Ventilator Mechanical Ventilator 08/23/19 12:00 70 08/23/19 12:00 99.5 79 17 148/98 (115) 98 08/23/19 12:00 78 15 148/98 (115) 96 08/23/19 11:28 83 18 70 08/23/19 11:00 75 17 144/80 (101) 96 08/23/19 10:00 80 22 131/92 (105) 98 08/23/19 09:25 78 11 50 08/23/19 09:00 79 19 126/89 (101) 99 08/23/19 08:00 81 08/23/19 08:00 70 08/23/19 08:00 Mechanical Ventilator Mechanical Ventilator 08/23/19 08:00 99.4 79 19 144/78 (100) 100 08/23/19 07:26 98 08/23/19 07:24 50 08/23/19 07:11 79 18 70 08/23/19 07:00 79 24 148/76 (100) 100 08/23/19 06:30 80 24 08/23/19 06:16 160/79 08/23/19 06:16 160/79 08/23/19 06:00 79 26 160/79 (106) 100 08/23/19 05:27 82 19 70 08/23/19 05:00 76 28 152/81 (104) 100 08/23/19 04:00 70 08/23/19 04:00 68 08/23/19 04:00 98.0 70 24 147/90 (109) 100 08/23/19 04:00 Mechanical Ventilator Mechanical Ventilator 08/23/19 03:40 78 18 70 08/23/19 03:00 67 30 158/82 (107) 99 08/23/19 02:00 67 21 178/77 (110) 100 08/23/19 01:57 63 178/77 08/23/19 01:06 77 21 70 08/23/19 01:00 67 25 162/73 (102) 99 08/23/19 00:25 164/82 08/23/19 00:25 164/82 08/23/19 00:00 98.0 66 24 164/82 (109) 99 08/23/19 00:00 68 08/23/19 00:00 70 08/23/19 00:00 Mechanical Ventilator Mechanical Ventilator 08/22/19 23:15 72 19 70 08/22/19 23:00 62 24 153/98 (116) 100 08/22/19 22:00 62 20 155/90 (111) 100 08/22/19 21:08 66 20 70 08/22/19 21:00 63 33 156/89 (111) 99 08/22/19 20:00 70 08/22/19 20:00 81 08/22/19 20:00 97.8 65 25 147/79 (101) 100 08/22/19 20:00 Mechanical Ventilator Mechanical Ventilator 08/22/19 19:30 64 18 70 08/22/19 19:00 66 25 137/107 (117) 100 08/22/19 18:09 129/28 08/22/19 18:09 129/98 08/22/19 18:00 67 22 129/98 (108) 100 Intake and Output 08/22/19 08/23/19 19:00 07:00 Intake Total 520 ml 405 ml Balance 520 ml 405 ml IV Total 100 ml 55 ml Tube Feeding 420 ml 350 ml # Bowel Movements 2 Laboratory Tests 08/23/19 09:05: White Blood Count 6.1, Red Blood Count 3.45L, Hemoglobin 10.5L, Hematocrit 31.5L , Mean Corpuscular Volume 91, Mean Corpuscular Hemoglobin 30.4, Mean Corpuscular Hemoglobin Concent 33.3, Red Cell Distribution Width 17.6H, Platelet Count 388, Mean Platelet Volume 7.1, Neutrophils (%) (Auto) 64.8, Lymphocytes (%) (Auto) 27.4, Monocytes (%) (Auto) 4.6, Eosinophils (%) (Auto) 1.4, Basophils (%) (Auto) 1.7, Sodium Level 136, Potassium Level 4.4, Chloride Level 101, Carbon Dioxide Level 27, Anion Gap 8, Blood Urea Nitrogen 45H, Creatinine 3.6H, Estimat Glomerular Filtration Rate 12.2, Glucose Level 132H, Calcium Level 8.6, Thyroid Stimulating Hormone (TSH) 7.761H, Free Thyroxine 1.54H 08/23/19 09:56: Arterial Blood pH 7.524H, Arterial Blood Partial Pressure CO2 33.3L, Arterial Blood Partial Pressure O2 130.4H, Arterial Blood HCO3 26.8H, Arterial Blood Oxygen Saturation 98.3, Arterial Blood Base Excess 4.2H, Cuauhtemoc Test Positive Height (Feet): 5 Height (Inches): 4.00 Weight (Pounds): 98 Objective General Appearance: WD/WN, awake/moaning. orally intubated Neck: supple Cardiovascular: normal rate Respiratory/Chest: rhonchi - bilaterally Abdomen: normal bowel sounds, non tender, soft, no organomegaly Edema: no edema noted Arm (L), no edema noted Arm (R), no edema noted Leg (L), no edema noted Leg (R), no edema noted Pedal (L), no edema noted Pedal (R), no edema noted Generalized Neurologic: disoriented, aphasia Nate Beltran MD Aug 23, 2019 17:59
[2019-08-23] MEDS: Dyna-Hex 2% Top Sol 2oz TOPIC SCH (20:08)
--- NOTE | 2019-08-23 20:17 | General Progress Note ---
Assessment/Plan Status: stable, not improved, unchanged, deteriorating Assessment/Plan: Assessment - Severe ulcerative esophagitis on endoscopy - on BID PPI - Resp failure --> now intubated - thrombocytopenia --> resolved - Renal failure --> now on HD, stablized - aspiration risk --> s/p PEG - anemia - bradycardia - Poor prognosis Recommendations - Continue TF - elevate HOB - monitor H&H Subjective Allergies: Coded Allergies: VANCOMYCIN (Unverified Allergy, Unknown, 08/02/19) Subjective Above noted d/w RN tolerating TF being weaned off vent Esophageal path noted, CMV neg necroinflammatory tissue Objective Last 24 Hour Vital Signs Date Time Temp Pulse Resp B/P (MAP) Pulse Ox O2 Delivery O2 Flow Rate FiO2 08/23/19 19:36 79 18 70 08/23/19 19:00 68 22 155/71 (99) 100 08/23/19 18:00 73 18 146/81 (102) 100 08/23/19 17:06 96 22 70 08/23/19 17:00 103 18 136/95 (109) 100 08/23/19 16:00 93 08/23/19 16:00 Mechanical Ventilator Mechanical Ventilator 08/23/19 16:00 99.4 78 17 164/82 (109) 100 08/23/19 16:00 70 08/23/19 15:19 97 18 70 08/23/19 15:00 74 17 162/82 (108) 100 08/23/19 14:00 77 22 152/82 (105) 99 08/23/19 13:09 75 18 70 08/23/19 13:00 77 17 153/82 (105) 100 08/23/19 12:00 77 08/23/19 12:00 Mechanical Ventilator Mechanical Ventilator 08/23/19 12:00 70 08/23/19 12:00 99.5 79 17 148/98 (115) 98 08/23/19 12:00 78 15 148/98 (115) 96 08/23/19 11:28 83 18 70 08/23/19 11:00 75 17 144/80 (101) 96 08/23/19 10:00 80 22 131/92 (105) 98 08/23/19 09:25 78 11 50 08/23/19 09:00 79 19 126/89 (101) 99 08/23/19 08:00 81 08/23/19 08:00 70 08/23/19 08:00 Mechanical Ventilator Mechanical Ventilator 08/23/19 08:00 99.4 79 19 144/78 (100) 100 08/23/19 07:26 98 08/23/19 07:24 50 08/23/19 07:11 79 18 70 08/23/19 07:00 79 24 148/76 (100) 100 08/23/19 06:30 80 24 08/23/19 06:16 160/79 08/23/19 06:16 160/79 08/23/19 06:00 79 26 160/79 (106) 100 08/23/19 05:27 82 19 70 08/23/19 05:00 76 28 152/81 (104) 100 08/23/19 04:00 70 08/23/19 04:00 68 08/23/19 04:00 98.0 70 24 147/90 (109) 100 08/23/19 04:00 Mechanical Ventilator Mechanical Ventilator 08/23/19 03:40 78 18 70 08/23/19 03:00 67 30 158/82 (107) 99 08/23/19 02:00 67 21 178/77 (110) 100 08/23/19 01:57 63 178/77 08/23/19 01:06 77 21 70 08/23/19 01:00 67 25 162/73 (102) 99 08/23/19 00:25 164/82 08/23/19 00:25 164/82 08/23/19 00:00 98.0 66 24 164/82 (109) 99 08/23/19 00:00 68 08/23/19 00:00 70 08/23/19 00:00 Mechanical Ventilator Mechanical Ventilator 08/22/19 23:15 72 19 70 08/22/19 23:00 62 24 153/98 (116) 100 08/22/19 22:00 62 20 155/90 (111) 100 08/22/19 21:08 66 20 70 08/22/19 21:00 63 33 156/89 (111) 99 Intake and Output 08/22/19 08/23/19 19:00 07:00 Intake Total 520 ml 405 ml Balance 520 ml 405 ml IV Total 100 ml 55 ml Tube Feeding 420 ml 350 ml # Bowel Movements 2 Laboratory Tests 08/23/19 09:05: White Blood Count 6.1, Red Blood Count 3.45L, Hemoglobin 10.5L, Hematocrit 31.5L , Mean Corpuscular Volume 91, Mean Corpuscular Hemoglobin 30.4, Mean Corpuscular Hemoglobin Concent 33.3, Red Cell Distribution Width 17.6H, Platelet Count 388, Mean Platelet Volume 7.1, Neutrophils (%) (Auto) 64.8, Lymphocytes (%) (Auto) 27.4, Monocytes (%) (Auto) 4.6, Eosinophils (%) (Auto) 1.4, Basophils (%) (Auto) 1.7, Sodium Level 136, Potassium Level 4.4, Chloride Level 101, Carbon Dioxide Level 27, Anion Gap 8, Blood Urea Nitrogen 45H, Creatinine 3.6H, Estimat Glomerular Filtration Rate 12.2, Glucose Level 132H, Calcium Level 8.6, Thyroid Stimulating Hormone (TSH) 7.761H, Free Thyroxine 1.54H 08/23/19 09:56: Arterial Blood pH 7.524H, Arterial Blood Partial Pressure CO2 33.3L, Arterial Blood Partial Pressure O2 130.4H, Arterial Blood HCO3 26.8H, Arterial Blood Oxygen Saturation 98.3, Arterial Blood Base Excess 4.2H, Cuauhtemoc Test Positive Height (Feet): 5 Height (Inches): 4.00 Weight (Pounds): 98 Objective Debilitated frail woman NCAT (+) ETT supple scattered ronchi RR abd soft ND NT, (+) GT no edema Cristy Elizondo MD Aug 23, 2019 20:17
[2019-08-24] VITALS (27 sets, daily range): BP systolic 118–159; BP diastolic 49–99
[2019-08-24] MEDS: HydrALAZINE 25mg tab NG SCH ×5 (00:04→23:40)
[2019-08-24] MEDS: Nitroglycerin 2% oint pkt TOPIC SCH ×5 (00:05→23:40)
--- NOTE | 2019-08-24 06:33 | General Progress Note ---
Assessment/Plan Problem List: (1) Hypothyroid ICD Codes: E03.9 - Hypothyroidism, unspecified SNOMED: 42241617 (2) ESRD (end stage renal disease) on dialysis ICD Codes: N18.6 - End stage renal disease; Z99.2 - Dependence on renal dialysis SNOMED: 431026135 (3) Hypotension ICD Codes: I95.9 - Hypotension, unspecified SNOMED: 54175933 Qualifiers: Qualified Codes: I95.3 - Hypotension of hemodialysis (4) Pneumonia ICD Codes: J18.9 - Pneumonia, unspecified organism SNOMED: 171201156 Qualifiers: Qualified Codes: J18.9 - Pneumonia, unspecified organism (5) Diabetes mellitus ICD Codes: E11.9 - Type 2 diabetes mellitus without complications SNOMED: 38654030 Status: stable, not improved, unchanged, deteriorating Assessment/Plan: glucose values are stable free T4 is elevated => reduce Levothyroxine IV 75 to 50 mcg daily Subjective ROS Limited/Unobtainable: Yes Allergies: Coded Allergies: VANCOMYCIN (Unverified Allergy, Unknown, 08/02/19) Subjective events noted interval notes reviewed Item Value Date Time Bedside Blood Glucose 123 mg/dl H 08/24/19 0600 Bedside Blood Glucose 120 mg/dl 08/24/19 0000 Bedside Blood Glucose 130 mg/dl H 08/23/19 1800 Bedside Blood Glucose 123 mg/dl H 08/23/19 1200 Bedside Blood Glucose 131 mg/dl H 08/23/19 0600 Bedside Blood Glucose 141 mg/dl H 08/23/19 0000 Objective Last 24 Hour Vital Signs Date Time Temp Pulse Resp B/P (MAP) Pulse Ox O2 Delivery O2 Flow Rate FiO2 08/24/19 06:00 62 24 143/70 (94) 100 08/24/19 05:59 148/83 08/24/19 05:59 148/83 08/24/19 05:00 72 23 159/65 (96) 100 08/24/19 04:55 72 18 70 08/24/19 04:00 61 08/24/19 04:00 98.0 64 23 146/64 (91) 100 08/24/19 04:00 Mechanical Ventilator Mechanical Ventilator 08/24/19 04:00 70 08/24/19 03:41 63 18 70 08/24/19 03:00 63 22 148/58 (88) 100 08/24/19 02:00 63 24 145/64 (91) 100 08/24/19 01:19 77 18 70 08/24/19 01:00 73 21 147/99 (115) 99 08/24/19 00:05 153/67 08/24/19 00:04 153/67 08/24/19 00:00 99.5 68 23 153/67 (95) 100 08/24/19 00:00 70 08/24/19 00:00 Mechanical Ventilator Mechanical Ventilator 08/24/19 00:00 70 08/23/19 23:41 68 18 70 08/23/19 23:00 69 26 157/68 (97) 100 08/23/19 22:00 68 22 150/76 (100) 100 08/23/19 21:16 67 18 70 08/23/19 21:00 68 21 146/79 (101) 99 08/23/19 20:00 Mechanical Ventilator Mechanical Ventilator 08/23/19 20:00 70 08/23/19 20:00 99.0 69 18 160/73 (102) 100 08/23/19 20:00 72 08/23/19 19:36 79 18 70 08/23/19 19:00 68 22 155/71 (99) 100 08/23/19 18:00 73 18 146/81 (102) 100 08/23/19 17:06 96 22 70 08/23/19 17:00 103 18 136/95 (109) 100 08/23/19 16:00 93 08/23/19 16:00 Mechanical Ventilator Mechanical Ventilator 08/23/19 16:00 99.4 78 17 164/82 (109) 100 08/23/19 16:00 70 08/23/19 15:19 97 18 70 08/23/19 15:00 74 17 162/82 (108) 100 08/23/19 14:00 77 22 152/82 (105) 99 08/23/19 13:09 75 18 70 08/23/19 13:00 77 17 153/82 (105) 100 08/23/19 12:00 77 08/23/19 12:00 Mechanical Ventilator Mechanical Ventilator 08/23/19 12:00 70 08/23/19 12:00 99.5 79 17 148/98 (115) 98 08/23/19 12:00 78 15 148/98 (115) 96 08/23/19 11:28 83 18 70 08/23/19 11:00 75 17 144/80 (101) 96 08/23/19 10:00 80 22 131/92 (105) 98 08/23/19 09:25 78 11 50 08/23/19 09:00 79 19 126/89 (101) 99 08/23/19 08:00 81 08/23/19 08:00 70 08/23/19 08:00 Mechanical Ventilator Mechanical Ventilator 08/23/19 08:00 99.4 79 19 144/78 (100) 100 08/23/19 07:26 98 08/23/19 07:24 50 08/23/19 07:11 79 18 70 08/23/19 07:00 79 24 148/76 (100) 100 Intake and Output 08/23/19 08/24/19 19:00 07:00 Intake Total 1680 ml 440 ml Balance 1680 ml 440 ml Intake Free Water 120 ml IV Total 210 ml 55 ml Tube Feeding 350 ml 385 ml Hemodialysis 1000 ml # Bowel Movements 4 3 Laboratory Tests 08/23/19 09:05: White Blood Count 6.1, Red Blood Count 3.45L, Hemoglobin 10.5L, Hematocrit 31.5L , Mean Corpuscular Volume 91, Mean Corpuscular Hemoglobin 30.4, Mean Corpuscular Hemoglobin Concent 33.3, Red Cell Distribution Width 17.6H, Platelet Count 388, Mean Platelet Volume 7.1, Neutrophils (%) (Auto) 64.8, Lymphocytes (%) (Auto) 27.4, Monocytes (%) (Auto) 4.6, Eosinophils (%) (Auto) 1.4, Basophils (%) (Auto) 1.7, Sodium Level 136, Potassium Level 4.4, Chloride Level 101, Carbon Dioxide Level 27, Anion Gap 8, Blood Urea Nitrogen 45H, Creatinine 3.6H, Estimat Glomerular Filtration Rate 12.2, Glucose Level 132H, Calcium Level 8.6, Thyroid Stimulating Hormone (TSH) 7.761H, Free Thyroxine 1.54H 08/23/19 09:56: Arterial Blood pH 7.524H, Arterial Blood Partial Pressure CO2 33.3L, Arterial Blood Partial Pressure O2 130.4H, Arterial Blood HCO3 26.8H, Arterial Blood Oxygen Saturation 98.3, Arterial Blood Base Excess 4.2H, Cuauhtemoc Test Positive Height (Feet): 5 Height (Inches): 4.00 Weight (Pounds): 98 General Appearance: lethargic Neck: normal alignment Respiratory/Chest: decreased breath sounds Abdomen: normal bowel sounds Pelvis: normal external exam Objective Current Medications Medications (Trade) Dose Ordered Sig/Javier Route PRN Reason Start Time Stop Time Status Last Admin Dose Admin Albuterol/ Ipratropium (Albuterol/ Ipratropium) 3 ml Q4H PRN HHN Shortness of Breath 08/19/19 07:45 08/24/19 07:44 Amlodipine Besylate (Norvasc) 5 mg BID NG 08/23/19 01:45 09/22/19 01:44 08/23/19 01:57 Atropine Sulfate (Atropine) 1 mg Q4H PRN IVP Per rx protocol 08/13/19 08:30 09/12/19 08:29 Chlorhexidine Gluconate (Nae-Hex 2%) 1 applic DAILY@2000 TOPIC 08/15/19 20:00 09/14/19 19:59 08/23/19 20:08 Dextrose (Dextrose 50%) 50 ml Q30M PRN IV Hypoglycemia 08/11/19 10:30 09/04/19 17:44 08/22/19 15:46 Diphenhydramine HCl (Benadryl) 50 mg Q4H PRN IVP Itching 08/09/19 14:30 09/08/19 14:29 08/13/19 02:39 Epoetin Thomas (Epoetin Thomas(ESRD on dialysis)) 4,000 unit THU-THU-THU SUBQ 08/12/19 21:00 09/11/19 20:59 08/22/19 21:23 Fluconazole/ Sodium Chloride 100 ml @ 100 mls/hr Q24H IV 08/18/19 13:00 08/29/19 23:59 08/23/19 14:21 Hydralazine HCl (Apresoline) 10 mg Q4H PRN IV For High Blood Pressure 08/18/19 12:44 09/17/19 12:43 08/22/19 09:22 Hydralazine HCl (Apresoline) 25 mg Q6HR NG 08/23/19 06:00 09/22/19 05:59 08/24/19 05:59 Lansoprazole (Prevacid) 30 mg BID GT 08/19/19 09:00 09/18/19 08:59 08/23/19 18:56 Levothyroxine Sodium (Synthroid) 75 mcg DAILY@0630 ORAL 08/22/19 06:30 09/21/19 06:29 08/24/19 06:00 Lorazepam (Ativan 2mg/ml 1ml) 1 mg Q3H PRN IV For Anxiety 08/17/19 11:30 08/24/19 11:29 Meropenem 500 mg/ Sodium Chloride 55 ml @ 110 mls/hr EVERY 12 HOURS IVPB 08/22/19 21:00 08/27/19 20:59 08/23/19 20:44 Metoclopramide HCl (Reglan) 5 mg Q8H PRN IVP Nausea & Vomiting 08/09/19 12:39 09/08/19 12:38 Nitroglycerin (Nitro-Bid) 1 inch Q6HR TOPIC 08/09/19 12:39 09/08/19 12:38 08/24/19 05:59 Antonio Jacome MD Aug 24, 2019 06:33
[2019-08-24 07:13] LABS: BASOPHILS % (AUTO) 2.3 % (0.0-2.0); EOSINOPHILS % (AUTO) 0.9 % (0.0-3.0); HEMATOCRIT 24.6 % (37.0-47.0); HEMOGLOBIN 8.3 G/DL (12.0-16.0); LYMPHOCYTES % (AUTO) 33.6 % (20.0-45.0); MEAN CORPUSCULAR VOLUME 91 FL (80-99); MONOCYTES % (AUTO) 7.8 % (1.0-10.0); NEUTROPHILS % (AUTO) 55.5 % (45.0-75.0); PLATELET COUNT 331 K/UL (150-450); WHITE BLOOD COUNT 4.7 K/UL (4.8-10.8)
[2019-08-24 07:24] LABS: ALANINE AMINOTRANSFERASE < 6 U/L (12-78); ALBUMIN 1.5 G/DL (3.4-5.0); ALBUMIN/GLOBULIN RATIO 0.4 (1.0-2.7); ALKALINE PHOSPHATASE 132 U/L (46-116); ANION GAP 7 mmol/L (5-15); ASPARTATE AMINO TRANSFERASE 18 U/L (15-37); BILIRUBIN,TOTAL 0.4 MG/DL (0.2-1.0); BLOOD UREA NITROGEN 30 mg/dL (7-18); CALCIUM 8.1 MG/DL (8.5-10.1); CARBON DIOXIDE 29 MMOL/L (21-32); CHLORIDE 100 MMOL/L (98-107); CREATININE 2.9 MG/DL (0.55-1.30); PHOSPHORUS 2.5 MG/DL (2.5-4.9); POTASSIUM 3.7 MMOL/L (3.5-5.1); SODIUM 135 MMOL/L (136-145)
--- NOTE | 2019-08-24 07:25 | Hematology/Onc Progress Note ---
Assessment/Plan Assessment/Plan # Thrombocytopenia - potential causes multifactorial, evaluate liver and viral etiologies to begin, in this case due to sepsis with septic shock also with cirrhosis and liver disease --> Hep panel and HIV ordered -> neg --> US abd to evaluate for cirrhosis and hsm ordered --> reviewed --> Peripheral smear ordered to evaluate for blasts /schistocytes --> abx and other meds have been reviewed --> ok for ppx if plt >50k w/ either heparin or lovenox --> Transfuse if Plt < 20k and fever, or if Plt < 10k without fever --> okay for permacath change once plt better--> for 08/14 --> plt trend: 43-->83-->237k-->292-->341-->315-->388 # Anemia of chronic disease due to underlying chronic medical issues, multifactorial v Gi bleed --> Anemia workup has been ordered, rule out gi bleed --> No evidence of hemolysis is noted, peripheral smear has been reviewed. --> Hgb goal >7. Transfuse prn. --> Epogen has been started --> HOLD OFF IRON ferritin is >1000 --> Medications have been reviewed --> low threshold for gi evaluation in case has occult + --> hgb 9-->6.7-->9.2 -->10.5-->10.6 -->10.7-->10-->10.5 --> blood tx: 08/11 # Early sepsis with shock. --> abx as per id, recs noted # Healthcare-associated pneumonia. --> recs reviewed --> abx: jung/micafungin-->jung # Severe protein-calorie malnutrition. --> nutritional support # End-stage renal disease --> had as renal hd --> with permacath # History of hypertension. --> per cards, now with Bradycardia. # resp failure s/p vent/trach # HypoThyroid # Ngt feedings # Dvt ppx scd's The timing of this note does not necessarily reflect the time of the patient was seen. Greatly appreciate consultation. Subjective Constitutional: Denies: no symptoms, chills, fever, malaise, weakness, other HEENT: Denies: no symptoms, eye pain, blurred vision, tearing, double vision, ear pain, ear discharge, nose pain, nose congestion, throat pain, throat swelling, mouth pain, mouth swelling, other Cardiovascular: Denies: no symptoms, chest pain, edema, irregular heart rate, lightheadedness, palpitations, syncope, other Respiratory: Denies: no symptoms, cough, shortness of breath, SOB with excertion, SOB at rest, sputum, wheezing, other Gastrointestinal/Abdominal: Denies: no symptoms, abdomen distended, abdominal pain, black stools, tarry stools, blood in stool, constipated, diarrhea, difficulty swallowing, nausea, poor appetite, poor fluid intake, rectal bleeding , vomiting, other Neurologic/Psychiatric: Denies: no symptoms, anxiety, depressed, emotional problems, headache, numbness, paresthesia, pre-existing deficit, seizure, tingling, tremors, weakness, other Endocrine: Denies: no symptoms, excessive sweating, flushing, intolerance to cold, intolerance to heat, increased hunger, increased thirst, increased urine, unexplained weight gain, unexplained weight loss, other Hematologic/Lymphatic: Denies: no symptoms, anemia, easy bleeding, easy bruising, adenopathy, other Allergies: Coded Allergies: VANCOMYCIN (Unverified Allergy, Unknown, 08/02/19) Subjective 08/11: no bleeding or chills, labs reviewed, no major bleeding, plt less than 50k 08/12: icu, s/p blood, hgb improved to 9.2, 08/14: icu, pending consent for thora and permacath, labs reviewed 08/15: new permacath placed, no bleeding, for hd, plt much improved, started lovenox sq 08/16: ett to be adjusted, bp on high end, micafungin started, possible bronch 08/17: weaning as per pulm, no events otherwise, labs noted 08/18: no events no bleeding, remains confused on vent, for hd 08/20: icu, failed to wean, labs reviewed, jung 08/21: resting in bed, no overnight events, labs reviewed 08/22: awake, confused, restraints, no overnight events 08/23: no events, no bleeding, on ppi bid Objective Objective Current Medications Medications (Trade) Dose Ordered Sig/Javier Route PRN Reason Start Time Stop Time Status Last Admin Dose Admin Albuterol/ Ipratropium (Albuterol/ Ipratropium) 3 ml Q4H PRN HHN Shortness of Breath 08/19/19 07:45 08/24/19 07:44 Amlodipine Besylate (Norvasc) 5 mg BID NG 08/23/19 01:45 09/22/19 01:44 08/23/19 01:57 Atropine Sulfate (Atropine) 1 mg Q4H PRN IVP Per rx protocol 08/13/19 08:30 09/12/19 08:29 Chlorhexidine Gluconate (Nae-Hex 2%) 1 applic DAILY@2000 TOPIC 08/15/19 20:00 09/14/19 19:59 08/23/19 20:08 Dextrose (Dextrose 50%) 50 ml Q30M PRN IV Hypoglycemia 08/11/19 10:30 09/04/19 17:44 08/22/19 15:46 Diphenhydramine HCl (Benadryl) 50 mg Q4H PRN IVP Itching 08/09/19 14:30 09/08/19 14:29 08/13/19 02:39 Epoetin Thomas (Epoetin Thomas(ESRD on dialysis)) 4,000 unit THU-THU-THU SUBQ 08/12/19 21:00 09/11/19 20:59 08/22/19 21:23 Fluconazole/ Sodium Chloride 100 ml @ 100 mls/hr Q24H IV 08/18/19 13:00 08/29/19 23:59 08/23/19 14:21 Hydralazine HCl (Apresoline) 10 mg Q4H PRN IV For High Blood Pressure 08/18/19 12:44 09/17/19 12:43 08/22/19 09:22 Hydralazine HCl (Apresoline) 25 mg Q6HR NG 08/23/19 06:00 09/22/19 05:59 08/24/19 05:59 Lansoprazole (Prevacid) 30 mg BID GT 08/19/19 09:00 09/18/19 08:59 08/23/19 18:56 Levothyroxine Sodium (Synthroid) 50 mcg DAILY@0630 ORAL 08/25/19 06:30 09/24/19 06:29 Lorazepam (Ativan 2mg/ml 1ml) 1 mg Q3H PRN IV For Anxiety 08/17/19 11:30 08/24/19 11:29 Meropenem 500 mg/ Sodium Chloride 55 ml @ 110 mls/hr EVERY 12 HOURS IVPB 08/22/19 21:00 08/27/19 20:59 08/23/19 20:44 Metoclopramide HCl (Reglan) 5 mg Q8H PRN IVP Nausea & Vomiting 08/09/19 12:39 09/08/19 12:38 Nitroglycerin (Nitro-Bid) 1 inch Q6HR TOPIC 08/09/19 12:39 09/08/19 12:38 08/24/19 05:59 Last 24 Hour Vital Signs Date Time Temp Pulse Resp B/P (MAP) Pulse Ox O2 Delivery O2 Flow Rate FiO2 08/24/19 07:11 61 18 40 08/24/19 07:00 61 25 130/63 (85) 100 08/24/19 06:30 62 24 08/24/19 06:00 62 24 143/70 (94) 100 08/24/19 05:59 148/83 08/24/19 05:59 148/83 08/24/19 05:00 72 23 159/65 (96) 100 08/24/19 04:55 72 18 70 08/24/19 04:00 61 08/24/19 04:00 98.0 64 23 146/64 (91) 100 08/24/19 04:00 Mechanical Ventilator Mechanical Ventilator 08/24/19 04:00 70 08/24/19 03:41 63 18 70 08/24/19 03:00 63 22 148/58 (88) 100 08/24/19 02:00 63 24 145/64 (91) 100 08/24/19 01:19 77 18 70 08/24/19 01:00 73 21 147/99 (115) 99 08/24/19 00:05 153/67 08/24/19 00:04 153/67 08/24/19 00:00 99.5 68 23 153/67 (95) 100 08/24/19 00:00 70 08/24/19 00:00 Mechanical Ventilator Mechanical Ventilator 08/24/19 00:00 70 08/23/19 23:41 68 18 70 08/23/19 23:00 69 26 157/68 (97) 100 08/23/19 22:00 68 22 150/76 (100) 100 08/23/19 21:16 67 18 70 08/23/19 21:00 68 21 146/79 (101) 99 08/23/19 20:00 Mechanical Ventilator Mechanical Ventilator 08/23/19 20:00 70 08/23/19 20:00 99.0 69 18 160/73 (102) 100 08/23/19 20:00 72 08/23/19 19:36 79 18 70 08/23/19 19:00 68 22 155/71 (99) 100 08/23/19 18:00 73 18 146/81 (102) 100 08/23/19 17:06 96 22 70 08/23/19 17:00 103 18 136/95 (109) 100 08/23/19 16:00 93 08/23/19 16:00 Mechanical Ventilator Mechanical Ventilator 08/23/19 16:00 99.4 78 17 164/82 (109) 100 08/23/19 16:00 70 08/23/19 15:19 97 18 70 08/23/19 15:00 74 17 162/82 (108) 100 08/23/19 14:00 77 22 152/82 (105) 99 08/23/19 13:09 75 18 70 08/23/19 13:00 77 17 153/82 (105) 100 08/23/19 12:00 77 08/23/19 12:00 Mechanical Ventilator Mechanical Ventilator 08/23/19 12:00 70 08/23/19 12:00 99.5 79 17 148/98 (115) 98 08/23/19 12:00 78 15 148/98 (115) 96 08/23/19 11:28 83 18 70 08/23/19 11:00 75 17 144/80 (101) 96 08/23/19 10:00 80 22 131/92 (105) 98 08/23/19 09:25 78 11 50 08/23/19 09:00 79 19 126/89 (101) 99 08/23/19 08:00 81 08/23/19 08:00 70 08/23/19 08:00 Mechanical Ventilator Mechanical Ventilator 08/23/19 08:00 99.4 79 19 144/78 (100) 100 08/23/19 07:26 98 08/23/19 07:24 50 08/23/19 07:11 79 18 70 08/23/19 07:00 79 24 148/76 (100) 100 08/23/19 06:30 80 24 08/23/19 06:16 160/79 08/23/19 06:16 160/79 08/23/19 06:00 79 26 160/79 (106) 100 08/23/19 05:27 82 19 70 08/23/19 05:00 76 28 152/81 (104) 100 08/23/19 04:00 70 08/23/19 04:00 68 08/23/19 04:00 98.0 70 24 147/90 (109) 100 08/23/19 04:00 Mechanical Ventilator Mechanical Ventilator 08/23/19 03:40 78 18 70 08/23/19 03:00 67 30 158/82 (107) 99 08/23/19 02:00 67 21 178/77 (110) 100 08/23/19 01:57 63 178/77 08/23/19 01:06 77 21 70 08/23/19 01:00 67 25 162/73 (102) 99 08/23/19 00:25 164/82 08/23/19 00:25 164/82 08/23/19 00:00 98.0 66 24 164/82 (109) 99 08/23/19 00:00 68 08/23/19 00:00 70 08/23/19 00:00 Mechanical Ventilator Mechanical Ventilator 08/22/19 23:15 72 19 70 08/22/19 23:00 62 24 153/98 (116) 100 08/22/19 22:00 62 20 155/90 (111) 100 08/22/19 21:08 66 20 70 08/22/19 21:00 63 33 156/89 (111) 99 08/22/19 20:00 70 08/22/19 20:00 81 08/22/19 20:00 97.8 65 25 147/79 (101) 100 08/22/19 20:00 Mechanical Ventilator Mechanical Ventilator 08/22/19 19:30 64 18 70 08/22/19 19:00 66 25 137/107 (117) 100 08/22/19 18:09 129/28 08/22/19 18:09 129/98 08/22/19 18:00 67 22 129/98 (108) 100 08/22/19 17:00 65 26 152/98 (116) 100 08/22/19 16:52 99 24 70 08/22/19 16:00 Mechanical Ventilator Mechanical Ventilator 08/22/19 16:00 70 08/22/19 16:00 97.6 60 18 155/63 (93) 94 08/22/19 15:42 60 08/22/19 15:30 66 19 70 08/22/19 15:00 73 34 150/120 (130) 100 08/22/19 14:00 74 25 146/73 (97) 92 08/22/19 13:00 84 22 154/79 (104) 100 08/22/19 12:50 100 08/22/19 12:50 68 18 60 08/22/19 12:02 136/88 08/22/19 12:01 136/88 08/22/19 12:00 97.8 67 28 156/89 (111) 99 67 08/22/19 12:00 40 08/22/19 12:00 Mechanical Ventilator Mechanical Ventilator 08/22/19 11:36 61 08/22/19 11:00 61 18 136/62 (86) 100 61 08/22/19 10:00 70 24 135/96 (109) 99 70 08/22/19 09:56 71 18 4 40 08/22/19 09:22 168/71 08/22/19 09:00 98.0 56 18 161/70 (100) 100 56 08/22/19 08:00 55 18 154/77 (102) 100 55 08/22/19 08:00 40 08/22/19 08:00 Mechanical Ventilator Mechanical Ventilator 08/22/19 07:44 56 08/22/19 07:33 57 18 40 Intake and Output 08/23/19 08/24/19 19:00 07:00 Intake Total 1680 ml 405 ml Balance 1680 ml 405 ml Intake Free Water 120 ml IV Total 210 ml 55 ml Tube Feeding 350 ml 350 ml Hemodialysis 1000 ml # Bowel Movements 4 3 Labs Test 08/22/19 08:30 08/23/19 09:05 08/23/19 09:56 08/24/19 06:10 White Blood Count 5.9 K/UL (4.8-10.8) 6.1 K/UL (4.8-10.8) 4.7 K/UL (4.8-10.8) Red Blood Count 3.15 M/UL (4.20-5.40) 3.45 M/UL (4.20-5.40) 2.70 M/UL (4.20-5.40) Hemoglobin 9.7 G/DL (12.0-16.0) 10.5 G/DL (12.0-16.0) 8.3 G/DL (12.0-16.0) Hematocrit 28.7 % (37.0-47.0) 31.5 % (37.0-47.0) 24.6 % (37.0-47.0) Mean Corpuscular Volume 91 FL (80-99) 91 FL (80-99) 91 FL (80-99) Mean Corpuscular Hemoglobin 30.8 PG (27.0-31.0) 30.4 PG (27.0-31.0) 30.8 PG (27.0-31.0) Mean Corpuscular Hemoglobin Concent 33.8 G/DL (32.0-36.0) 33.3 G/DL (32.0-36.0) 33.8 G/DL (32.0-36.0) Red Cell Distribution Width 18.3 % (11.6-14.8) 17.6 % (11.6-14.8) 17.0 % (11.6-14.8) Platelet Count 316 K/UL (150-450) 388 K/UL (150-450) 331 K/UL (150-450) Mean Platelet Volume 7.1 FL (6.5-10.1) 7.1 FL (6.5-10.1) 7.1 FL (6.5-10.1) Neutrophils (%) (Auto) 53.2 % (45.0-75.0) 64.8 % (45.0-75.0) 55.5 % (45.0-75.0) Lymphocytes (%) (Auto) 38.3 % (20.0-45.0) 27.4 % (20.0-45.0) 33.6 % (20.0-45.0) Monocytes (%) (Auto) 6.0 % (1.0-10.0) 4.6 % (1.0-10.0) 7.8 % (1.0-10.0) Eosinophils (%) (Auto) 0.9 % (0.0-3.0) 1.4 % (0.0-3.0) 0.9 % (0.0-3.0) Basophils (%) (Auto) 1.7 % (0.0-2.0) 1.7 % (0.0-2.0) 2.3 % (0.0-2.0) Sodium Level 138 MMOL/L (136-145) 136 MMOL/L (136-145) Potassium Level 3.7 MMOL/L (3.5-5.1) 4.4 MMOL/L (3.5-5.1) Chloride Level 103 MMOL/L (98-107) 101 MMOL/L (98-107) Carbon Dioxide Level 25 MMOL/L (21-32) 27 MMOL/L (21-32) Anion Gap 10 mmol/L (5-15) 8 mmol/L (5-15) Blood Urea Nitrogen 34 mg/dL (7-18) 45 mg/dL (7-18) Creatinine 3.5 MG/DL (0.55-1.30) 3.6 MG/DL (0.55-1.30) Estimat Glomerular Filtration Rate 12.6 mL/min (>60) 12.2 mL/min (>60) Glucose Level 120 MG/DL (74-106) 132 MG/DL (74-106) Calcium Level 8.4 MG/DL (8.5-10.1) 8.6 MG/DL (8.5-10.1) Phosphorus Level 3.4 MG/DL (2.5-4.9) Magnesium Level 1.9 MG/DL (1.8-2.4) Total Bilirubin 0.5 MG/DL (0.2-1.0) Aspartate Amino Transf (AST/SGOT) 16 U/L (15-37) Alanine Aminotransferase (ALT/SGPT) 8 U/L (12-78) Alkaline Phosphatase 151 U/L (46-116) Total Protein 5.0 G/DL (6.4-8.2) Albumin 1.2 G/DL (3.4-5.0) Globulin 3.8 g/dL Albumin/Globulin Ratio 0.3 (1.0-2.7) Thyroid Stimulating Hormone (TSH) 7.761 uiU/mL (0.358-3.740) Free Thyroxine 1.54 NG/DL (0.76-1.46) Arterial Blood pH 7.524 (7.350-7.450) Arterial Blood Partial Pressure CO2 33.3 mmHg (35.0-45.0) Arterial Blood Partial Pressure O2 130.4 mmHg (75.0-100.0) Arterial Blood HCO3 26.8 mmol/L (22.0-26.0) Arterial Blood Oxygen Saturation 98.3 % (95-100) Arterial Blood Base Excess 4.2 (-2-2) Cuauhtemoc Test Positive Height (Feet): 5 Height (Inches): 4.00 Weight (Pounds): 98 Objective gen: nad pulm: on trach+ / vent cv: rrr, no gmr abd: sfot, nt, nd ++ gt ext: no cce Gio Rob MD Aug 24, 2019 07:25
--- NOTE | 2019-08-24 08:32 | General Progress Note ---
Assessment/Plan Problem List: (1) Failure to thrive (0-17) ICD Codes: R62.51 - Failure to thrive (0-17) SNOMED: 869932505 (2) Hypertensive kidney disease ICD Codes: I12.9 - Hypertensive chronic kidney disease with stage 1 through stage 4 chronic kidney disease, or unspecified chronic kidney disease SNOMED: 80412916 (3) Pneumonia ICD Codes: J18.9 - Pneumonia, unspecified organism SNOMED: 948370796 Qualifiers: Qualified Codes: J18.9 - Pneumonia, unspecified organism (4) ESRD (end stage renal disease) ICD Codes: N18.6 - End stage renal disease SNOMED: 52693949 (5) Septic arthritis ICD Codes: M00.9 - Pyogenic arthritis, unspecified SNOMED: 676694488 (6) Thrombocytopenia ICD Codes: D69.6 - Thrombocytopenia, unspecified SNOMED: 585777406 (7) Hypotension ICD Codes: I95.9 - Hypotension, unspecified SNOMED: 59598770 Qualifiers: Qualified Codes: I95.3 - Hypotension of hemodialysis (8) Malnutrition ICD Codes: E46 - Unspecified protein-calorie malnutrition SNOMED: 00776433 Status: stable, not improved, unchanged, deteriorating Assessment/Plan: cont resp care chest pt/suctioning resp rx repeat cxr cont weaning- try simv No plans for trach. resp/volume status needs to be optimized as much as possible monitor plts iv PPI iv abx HD bp rx critical and guarded tube feeds per gi will d/w family trach vs terminal extubation Subjective ROS Limited/Unobtainable: No Constitutional: Reports: malaise, weakness HEENT: Reports: no symptoms Cardiovascular: Reports: no symptoms Respiratory: Reports: shortness of breath, sputum Gastrointestinal/Abdominal: Reports: difficulty swallowing Genitourinary: Reports: no symptoms Neurologic/Psychiatric: Reports: pre-existing deficit Endocrine: Reports: no symptoms Hematologic/Lymphatic: Reports: anemia Allergies: Coded Allergies: VANCOMYCIN (Unverified Allergy, Unknown, 08/02/19) All Systems: reviewed and negative except above Subjective no events. on the vent. remains alert and awake. no fevers. alert. minimal congestion/secretions. cxr with pulm edema. not able to wean yet. d/w . trach recommended Objective Last 24 Hour Vital Signs Date Time Temp Pulse Resp B/P (MAP) Pulse Ox O2 Delivery O2 Flow Rate FiO2 08/24/19 08:27 65 138/58 08/24/19 08:00 70 08/24/19 08:00 Mechanical Ventilator Mechanical Ventilator 08/24/19 07:11 61 18 40 08/24/19 07:00 61 25 130/63 (85) 100 08/24/19 06:30 62 24 08/24/19 06:00 62 24 143/70 (94) 100 08/24/19 05:59 148/83 08/24/19 05:59 148/83 08/24/19 05:00 72 23 159/65 (96) 100 08/24/19 04:55 72 18 70 08/24/19 04:00 61 08/24/19 04:00 98.0 64 23 146/64 (91) 100 08/24/19 04:00 Mechanical Ventilator Mechanical Ventilator 08/24/19 04:00 70 08/24/19 03:41 63 18 70 08/24/19 03:00 63 22 148/58 (88) 100 08/24/19 02:00 63 24 145/64 (91) 100 08/24/19 01:19 77 18 70 08/24/19 01:00 73 21 147/99 (115) 99 08/24/19 00:05 153/67 08/24/19 00:04 153/67 08/24/19 00:00 99.5 68 23 153/67 (95) 100 08/24/19 00:00 70 08/24/19 00:00 Mechanical Ventilator Mechanical Ventilator 08/24/19 00:00 70 08/23/19 23:41 68 18 70 08/23/19 23:00 69 26 157/68 (97) 100 08/23/19 22:00 68 22 150/76 (100) 100 08/23/19 21:16 67 18 70 08/23/19 21:00 68 21 146/79 (101) 99 08/23/19 20:00 Mechanical Ventilator Mechanical Ventilator 08/23/19 20:00 70 08/23/19 20:00 99.0 69 18 160/73 (102) 100 08/23/19 20:00 72 08/23/19 19:36 79 18 70 08/23/19 19:00 68 22 155/71 (99) 100 08/23/19 18:00 73 18 146/81 (102) 100 08/23/19 17:06 96 22 70 08/23/19 17:00 103 18 136/95 (109) 100 08/23/19 16:00 93 08/23/19 16:00 Mechanical Ventilator Mechanical Ventilator 08/23/19 16:00 99.4 78 17 164/82 (109) 100 08/23/19 16:00 70 08/23/19 15:19 97 18 70 08/23/19 15:00 74 17 162/82 (108) 100 08/23/19 14:00 77 22 152/82 (105) 99 08/23/19 13:09 75 18 70 08/23/19 13:00 77 17 153/82 (105) 100 08/23/19 12:00 77 08/23/19 12:00 Mechanical Ventilator Mechanical Ventilator 08/23/19 12:00 70 08/23/19 12:00 99.5 79 17 148/98 (115) 98 08/23/19 12:00 78 15 148/98 (115) 96 08/23/19 11:28 83 18 70 08/23/19 11:00 75 17 144/80 (101) 96 08/23/19 10:00 80 22 131/92 (105) 98 08/23/19 09:25 78 11 50 08/23/19 09:00 79 19 126/89 (101) 99 Intake and Output 08/23/19 08/24/19 19:00 07:00 Intake Total 1680 ml 405 ml Balance 1680 ml 405 ml Intake Free Water 120 ml IV Total 210 ml 55 ml Tube Feeding 350 ml 350 ml Hemodialysis 1000 ml # Bowel Movements 4 3 Laboratory Tests 08/23/19 09:05: White Blood Count 6.1, Red Blood Count 3.45L, Hemoglobin 10.5L, Hematocrit 31.5L , Mean Corpuscular Volume 91, Mean Corpuscular Hemoglobin 30.4, Mean Corpuscular Hemoglobin Concent 33.3, Red Cell Distribution Width 17.6H, Platelet Count 388, Mean Platelet Volume 7.1, Neutrophils (%) (Auto) 64.8, Lymphocytes (%) (Auto) 27.4, Monocytes (%) (Auto) 4.6, Eosinophils (%) (Auto) 1.4, Basophils (%) (Auto) 1.7, Sodium Level 136, Potassium Level 4.4, Chloride Level 101, Carbon Dioxide Level 27, Anion Gap 8, Blood Urea Nitrogen 45H, Creatinine 3.6H, Estimat Glomerular Filtration Rate 12.2, Glucose Level 132H, Calcium Level 8.6, Thyroid Stimulating Hormone (TSH) 7.761H, Free Thyroxine 1.54H 08/23/19 09:56: Arterial Blood pH 7.524H, Arterial Blood Partial Pressure CO2 33.3L, Arterial Blood Partial Pressure O2 130.4H, Arterial Blood HCO3 26.8H, Arterial Blood Oxygen Saturation 98.3, Arterial Blood Base Excess 4.2H, Cuauhtemoc Test Positive 08/24/19 06:10: White Blood Count 4.7L, Red Blood Count 2.70L, Hemoglobin 8.3L, Hematocrit 24.6L , Mean Corpuscular Volume 91, Mean Corpuscular Hemoglobin 30.8, Mean Corpuscular Hemoglobin Concent 33.8, Red Cell Distribution Width 17.0H, Platelet Count 331, Mean Platelet Volume 7.1, Neutrophils (%) (Auto) 55.5, Lymphocytes (%) (Auto) 33.6, Monocytes (%) (Auto) 7.8, Eosinophils (%) (Auto) 0.9, Basophils (%) (Auto) 2.3H, Sodium Level 135L, Potassium Level 3.7, Chloride Level 100, Carbon Dioxide Level 29, Anion Gap 7, Blood Urea Nitrogen 30H, Creatinine 2.9H, Estimat Glomerular Filtration Rate 15.7, Glucose Level 115H, Calcium Level 8.1L, Phosphorus Level 2.5, Magnesium Level 2.0, Total Bilirubin 0.4, Aspartate Amino Transf (AST/SGOT) 18, Alanine Aminotransferase ( ALT/SGPT) < 6L, Alkaline Phosphatase 132H, C-Reactive Protein, Quantitative 5.3H , Pro-B-Type Natriuretic Peptide [Pending], Total Protein 5.1L, Albumin 1.5L, Globulin 3.6, Albumin/Globulin Ratio 0.4L Height (Feet): 5 Height (Inches): 4.00 Weight (Pounds): 98 Objective General Appearance: WD/WN, awake/moaning. orally intubated Neck: supple Cardiovascular: normal rate Respiratory/Chest: rhonchi - bilaterally Abdomen: normal bowel sounds, non tender, soft, no organomegaly Edema: no edema noted Arm (L), no edema noted Arm (R), no edema noted Leg (L), no edema noted Leg (R), no edema noted Pedal (L), no edema noted Pedal (R), no edema noted Generalized Neurologic: disoriented, aphasia Nate Beltran MD Aug 24, 2019 08:32
--- NOTE | 2019-08-24 11:50 | Infectious Diseases Prog Note ---
Assessment/Plan Assessment/Plan antibiotics : meropenem, fluconazole A 1. jarad albicans fungemia 2. right shoulder septic arthritis with staph aureus s/p rx 3. renal failure 4. thrombocytopenia resolved 7. diabetes mellitus 8. hypertension 9. respiratory failure P 1. d.c meropenem 2. continue fluconazole 5 more days 3. will follow up cultures Subjective ROS Limited/Unobtainable: Yes Allergies: Coded Allergies: VANCOMYCIN (Unverified Allergy, Unknown, 08/02/19) Objective Vital Signs Last 24 Hour Vital Signs Date Time Temp Pulse Resp B/P (MAP) Pulse Ox O2 Delivery O2 Flow Rate FiO2 08/24/19 11:21 60 18 40 08/24/19 11:00 64 18 141/57 (85) 100 08/24/19 10:00 67 26 152/60 (90) 100 08/24/19 09:30 100 08/24/19 09:30 58 30 147/60 (89) 100 08/24/19 09:29 58 18 40 08/24/19 09:00 59 25 125/92 (103) 100 08/24/19 08:30 61 20 139/61 (87) 100 08/24/19 08:27 65 138/58 08/24/19 08:00 70 08/24/19 08:00 Mechanical Ventilator Mechanical Ventilator 08/24/19 08:00 100.0 61 30 137/62 (87) 100 08/24/19 07:11 61 18 40 08/24/19 07:00 61 25 130/63 (85) 100 08/24/19 06:30 62 24 08/24/19 06:00 62 24 143/70 (94) 100 08/24/19 05:59 148/83 08/24/19 05:59 148/83 08/24/19 05:00 72 23 159/65 (96) 100 08/24/19 04:55 72 18 70 08/24/19 04:00 61 08/24/19 04:00 98.0 64 23 146/64 (91) 100 08/24/19 04:00 Mechanical Ventilator Mechanical Ventilator 08/24/19 04:00 70 08/24/19 03:41 63 18 70 08/24/19 03:00 63 22 148/58 (88) 100 08/24/19 02:00 63 24 145/64 (91) 100 08/24/19 01:19 77 18 70 08/24/19 01:00 73 21 147/99 (115) 99 08/24/19 00:05 153/67 08/24/19 00:04 153/67 08/24/19 00:00 99.5 68 23 153/67 (95) 100 08/24/19 00:00 70 08/24/19 00:00 Mechanical Ventilator Mechanical Ventilator 08/24/19 00:00 70 08/23/19 23:41 68 18 70 08/23/19 23:00 69 26 157/68 (97) 100 08/23/19 22:00 68 22 150/76 (100) 100 08/23/19 21:16 67 18 70 08/23/19 21:00 68 21 146/79 (101) 99 08/23/19 20:00 Mechanical Ventilator Mechanical Ventilator 08/23/19 20:00 70 08/23/19 20:00 99.0 69 18 160/73 (102) 100 08/23/19 20:00 72 08/23/19 19:36 79 18 70 08/23/19 19:00 68 22 155/71 (99) 100 08/23/19 18:00 73 18 146/81 (102) 100 08/23/19 17:06 96 22 70 08/23/19 17:00 103 18 136/95 (109) 100 08/23/19 16:00 93 08/23/19 16:00 Mechanical Ventilator Mechanical Ventilator 08/23/19 16:00 99.4 78 17 164/82 (109) 100 08/23/19 16:00 70 08/23/19 15:19 97 18 70 08/23/19 15:00 74 17 162/82 (108) 100 08/23/19 14:00 77 22 152/82 (105) 99 08/23/19 13:09 75 18 70 08/23/19 13:00 77 17 153/82 (105) 100 08/23/19 12:00 77 08/23/19 12:00 Mechanical Ventilator Mechanical Ventilator 08/23/19 12:00 70 08/23/19 12:00 99.5 79 17 148/98 (115) 98 08/23/19 12:00 78 15 148/98 (115) 96 Height (Feet): 5 Height (Inches): 4.00 Weight (Pounds): 98 HEENT: other - intubated Respiratory/Chest: lungs clear Cardiovascular: normal rate, regular rhythm, no gallop/murmur Abdomen: soft, non tender, other - GT Extremities: other - + edema, right groin catheter Microbiology Date/Time Source Procedure Growth Status 08/22/19 04:30 Other Blood Culture - Preliminary NO GROWTH AFTER 48 HOURS Resulted 08/22/19 00:55 Sputum Gram Stain - Final Complete 08/22/19 00:55 Sputum Sputum Culture - Final NO GROWTH AFTER 48 HOURS Complete Laboratory Tests Test 08/24/19 06:10 White Blood Count 4.7 K/UL (4.8-10.8) L Red Blood Count 2.70 M/UL (4.20-5.40) L Hemoglobin 8.3 G/DL (12.0-16.0) L Hematocrit 24.6 % (37.0-47.0) L Mean Corpuscular Volume 91 FL (80-99) Mean Corpuscular Hemoglobin 30.8 PG (27.0-31.0) Mean Corpuscular Hemoglobin Concent 33.8 G/DL (32.0-36.0) Red Cell Distribution Width 17.0 % (11.6-14.8) H Platelet Count 331 K/UL (150-450) Mean Platelet Volume 7.1 FL (6.5-10.1) Neutrophils (%) (Auto) 55.5 % (45.0-75.0) Lymphocytes (%) (Auto) 33.6 % (20.0-45.0) Monocytes (%) (Auto) 7.8 % (1.0-10.0) Eosinophils (%) (Auto) 0.9 % (0.0-3.0) Basophils (%) (Auto) 2.3 % (0.0-2.0) H Sodium Level 135 MMOL/L (136-145) L Potassium Level 3.7 MMOL/L (3.5-5.1) Chloride Level 100 MMOL/L (98-107) Carbon Dioxide Level 29 MMOL/L (21-32) Anion Gap 7 mmol/L (5-15) Blood Urea Nitrogen 30 mg/dL (7-18) H Creatinine 2.9 MG/DL (0.55-1.30) H Estimat Glomerular Filtration Rate 15.7 mL/min (>60) Glucose Level 115 MG/DL (74-106) H Calcium Level 8.1 MG/DL (8.5-10.1) L Phosphorus Level 2.5 MG/DL (2.5-4.9) Magnesium Level 2.0 MG/DL (1.8-2.4) Total Bilirubin 0.4 MG/DL (0.2-1.0) Aspartate Amino Transf (AST/SGOT) 18 U/L (15-37) Alanine Aminotransferase (ALT/SGPT) < 6 U/L (12-78) L Alkaline Phosphatase 132 U/L (46-116) H C-Reactive Protein, Quantitative 5.3 mg/dL (0.00-0.90) H Pro-B-Type Natriuretic Peptide Pending Total Protein 5.1 G/DL (6.4-8.2) L Albumin 1.5 G/DL (3.4-5.0) L Globulin 3.6 g/dL Albumin/Globulin Ratio 0.4 (1.0-2.7) L Current Medications Medications (Trade) Dose Ordered Sig/Javier Route PRN Reason Start Time Stop Time Status Last Admin Dose Admin Amlodipine Besylate (Norvasc) 5 mg BID NG 08/23/19 01:45 09/22/19 01:44 08/24/19 08:27 Atropine Sulfate (Atropine) 1 mg Q4H PRN IVP Per rx protocol 08/13/19 08:30 09/12/19 08:29 Chlorhexidine Gluconate (Nae-Hex 2%) 1 applic DAILY@1999 TOPIC 08/15/19 20:00 09/14/19 19:59 08/23/19 20:08 Dextrose (Dextrose 50%) 50 ml Q30M PRN IV Hypoglycemia 08/11/19 10:30 09/04/19 17:44 08/22/19 15:46 Diphenhydramine HCl (Benadryl) 50 mg Q4H PRN IVP Itching 08/09/19 14:30 09/08/19 14:29 08/13/19 02:39 Epoetin Thomas (Epoetin Thomas(ESRD on dialysis)) 4,000 unit THU-THU-THU SUBQ 08/12/19 21:00 09/11/19 20:59 08/22/19 21:23 Fluconazole/ Sodium Chloride 100 ml @ 100 mls/hr Q24H IV 08/18/19 13:00 08/29/19 23:59 08/23/19 14:21 Hydralazine HCl (Apresoline) 10 mg Q4H PRN IV For High Blood Pressure 08/18/19 12:44 09/17/19 12:43 08/22/19 09:22 Hydralazine HCl (Apresoline) 25 mg Q6HR NG 08/23/19 06:00 09/22/19 05:59 08/24/19 05:59 Lansoprazole (Prevacid) 30 mg BID GT 08/19/19 09:00 09/18/19 08:59 08/24/19 08:26 Levothyroxine Sodium (Synthroid) 50 mcg DAILY@0630 ORAL 08/25/19 06:30 09/24/19 06:29 Meropenem 500 mg/ Sodium Chloride 55 ml @ 110 mls/hr Q24H IVPB 08/24/19 21:00 08/29/19 20:59 Metoclopramide HCl (Reglan) 5 mg Q8H PRN IVP Nausea & Vomiting 08/09/19 12:39 09/08/19 12:38 Nitroglycerin (Nitro-Bid) 1 inch Q6HR TOPIC 08/09/19 12:39 09/08/19 12:38 08/24/19 05:59 Melissa Solares MD Aug 24, 2019 11:50
--- NOTE | 2019-08-24 11:58 | Nephrology Progress Note ---
Assessment/Plan Problem List: (1) ESRD (end stage renal disease) on dialysis (2) Malnutrition (3) Anemia in CKD (chronic kidney disease) (4) Hypotension (5) Thrombocytopenia (6) Sepsis Assessment: klebsiella in blood Assessment -Early sepsis with shock. -Healthcare-associated pneumonia. -Severe protein-calorie malnutrition. -Thrombocytopenia. - End-stage renal disease. - History of hypertension. - Bradycardia. - HypoThyroid Plan Was dialyzed August 22 Next dialysis probably August 25 Due to her overall medical condition I favor DNR and comfort care Blood pressure fluctuating, will start hydralazine via NG tube for blood pressure Magnesium and potassium supplement intravenously as needed Patient underwent PEG placement August 16 patient remains intubated on ventilator Discussed with RN Aim to wean from ventilator or consider tracheostomy Permacath was removed on August 12 Dialysis 08/11 Transfusion as needed Patient had hematemesis meds IV as possible Surveillance blood cultures tomorrow Plan to put the permacath back in on Thursday if cultures are negative keep BP and BS in check Inflammatory markers per orders Subjective ROS Limited/Unobtainable: Yes Objective Objective Last 24 Hour Vital Signs Date Time Temp Pulse Resp B/P (MAP) Pulse Ox O2 Delivery O2 Flow Rate FiO2 08/24/19 11:21 60 18 40 08/24/19 11:00 64 18 141/57 (85) 100 08/24/19 10:00 67 26 152/60 (90) 100 08/24/19 09:30 100 08/24/19 09:30 58 30 147/60 (89) 100 08/24/19 09:29 58 18 40 08/24/19 09:00 59 25 125/92 (103) 100 08/24/19 08:30 61 20 139/61 (87) 100 08/24/19 08:27 65 138/58 08/24/19 08:00 70 08/24/19 08:00 Mechanical Ventilator Mechanical Ventilator 08/24/19 08:00 100.0 61 30 137/62 (87) 100 08/24/19 07:11 61 18 40 08/24/19 07:00 61 25 130/63 (85) 100 08/24/19 06:30 62 24 08/24/19 06:00 62 24 143/70 (94) 100 08/24/19 05:59 148/83 08/24/19 05:59 148/83 08/24/19 05:00 72 23 159/65 (96) 100 08/24/19 04:55 72 18 70 08/24/19 04:00 61 08/24/19 04:00 98.0 64 23 146/64 (91) 100 08/24/19 04:00 Mechanical Ventilator Mechanical Ventilator 08/24/19 04:00 70 08/24/19 03:41 63 18 70 08/24/19 03:00 63 22 148/58 (88) 100 08/24/19 02:00 63 24 145/64 (91) 100 08/24/19 01:19 77 18 70 08/24/19 01:00 73 21 147/99 (115) 99 08/24/19 00:05 153/67 08/24/19 00:04 153/67 08/24/19 00:00 99.5 68 23 153/67 (95) 100 08/24/19 00:00 70 08/24/19 00:00 Mechanical Ventilator Mechanical Ventilator 08/24/19 00:00 70 08/23/19 23:41 68 18 70 08/23/19 23:00 69 26 157/68 (97) 100 08/23/19 22:00 68 22 150/76 (100) 100 08/23/19 21:16 67 18 70 08/23/19 21:00 68 21 146/79 (101) 99 08/23/19 20:00 Mechanical Ventilator Mechanical Ventilator 08/23/19 20:00 70 08/23/19 20:00 99.0 69 18 160/73 (102) 100 08/23/19 20:00 72 08/23/19 19:36 79 18 70 08/23/19 19:00 68 22 155/71 (99) 100 08/23/19 18:00 73 18 146/81 (102) 100 08/23/19 17:06 96 22 70 08/23/19 17:00 103 18 136/95 (109) 100 08/23/19 16:00 93 08/23/19 16:00 Mechanical Ventilator Mechanical Ventilator 08/23/19 16:00 99.4 78 17 164/82 (109) 100 08/23/19 16:00 70 08/23/19 15:19 97 18 70 08/23/19 15:00 74 17 162/82 (108) 100 08/23/19 14:00 77 22 152/82 (105) 99 08/23/19 13:09 75 18 70 08/23/19 13:00 77 17 153/82 (105) 100 08/23/19 12:00 77 08/23/19 12:00 Mechanical Ventilator Mechanical Ventilator 08/23/19 12:00 70 08/23/19 12:00 99.5 79 17 148/98 (115) 98 08/23/19 12:00 78 15 148/98 (115) 96 Intake and Output 08/23/19 08/24/19 19:00 07:00 Intake Total 1680 ml 405 ml Balance 1680 ml 405 ml Intake Free Water 120 ml IV Total 210 ml 55 ml Tube Feeding 350 ml 350 ml Hemodialysis 1000 ml # Bowel Movements 4 3 Laboratory Tests 08/24/19 06:10: White Blood Count 4.7L, Red Blood Count 2.70L, Hemoglobin 8.3L, Hematocrit 24.6L , Mean Corpuscular Volume 91, Mean Corpuscular Hemoglobin 30.8, Mean Corpuscular Hemoglobin Concent 33.8, Red Cell Distribution Width 17.0H, Platelet Count 331, Mean Platelet Volume 7.1, Neutrophils (%) (Auto) 55.5, Lymphocytes (%) (Auto) 33.6, Monocytes (%) (Auto) 7.8, Eosinophils (%) (Auto) 0.9, Basophils (%) (Auto) 2.3H, Sodium Level 135L, Potassium Level 3.7, Chloride Level 100, Carbon Dioxide Level 29, Anion Gap 7, Blood Urea Nitrogen 30H, Creatinine 2.9H, Estimat Glomerular Filtration Rate 15.7, Glucose Level 115H, Calcium Level 8.1L, Phosphorus Level 2.5, Magnesium Level 2.0, Total Bilirubin 0.4, Aspartate Amino Transf (AST/SGOT) 18, Alanine Aminotransferase ( ALT/SGPT) < 6L, Alkaline Phosphatase 132H, C-Reactive Protein, Quantitative 5.3H , Pro-B-Type Natriuretic Peptide [Pending], Total Protein 5.1L, Albumin 1.5L, Globulin 3.6, Albumin/Globulin Ratio 0.4L Height (Feet): 5 Height (Inches): 4.00 Weight (Pounds): 98 General Appearance: no apparent distress EENT: other - Remains intubated on ventilator Cardiovascular: tachycardia Respiratory/Chest: decreased breath sounds - Remains intubated on ventilator Objective no change William Blackwood MD Aug 24, 2019 11:58
--- NOTE | 2019-08-24 14:30 | Surgery Progress Note ---
Surgery Progress Note Subjective Procedure Performed Right Femoral Temporary Hemodialysis catheter Insertion Additional Comments ill appearing difficult to wean hd cath malfunctioning Objective Last 24 Hour Vital Signs Date Time Temp Pulse Resp B/P (MAP) Pulse Ox O2 Delivery O2 Flow Rate FiO2 08/24/19 13:00 61 18 142/60 (87) 100 08/24/19 12:38 63 18 40 08/24/19 12:32 143/59 08/24/19 12:32 143/59 08/24/19 12:30 64 23 133/61 (85) 100 08/24/19 12:00 70 08/24/19 12:00 61 08/24/19 12:00 99.8 61 22 135/49 (77) 100 08/24/19 12:00 Mechanical Ventilator Mechanical Ventilator 08/24/19 11:21 60 18 40 08/24/19 11:00 64 18 141/57 (85) 100 08/24/19 10:00 67 26 152/60 (90) 100 08/24/19 09:30 100 08/24/19 09:30 58 30 147/60 (89) 100 08/24/19 09:29 58 18 40 08/24/19 09:00 59 25 125/92 (103) 100 08/24/19 08:48 61 08/24/19 08:30 61 20 139/61 (87) 100 08/24/19 08:27 65 138/58 08/24/19 08:00 70 08/24/19 08:00 Mechanical Ventilator Mechanical Ventilator 08/24/19 08:00 100.0 61 30 137/62 (87) 100 08/24/19 07:11 61 18 40 08/24/19 07:00 61 25 130/63 (85) 100 08/24/19 06:30 62 24 08/24/19 06:00 62 24 143/70 (94) 100 08/24/19 05:59 148/83 08/24/19 05:59 148/83 08/24/19 05:00 72 23 159/65 (96) 100 08/24/19 04:55 72 18 70 08/24/19 04:00 61 08/24/19 04:00 98.0 64 23 146/64 (91) 100 08/24/19 04:00 Mechanical Ventilator Mechanical Ventilator 08/24/19 04:00 70 08/24/19 03:41 63 18 70 08/24/19 03:00 63 22 148/58 (88) 100 08/24/19 02:00 63 24 145/64 (91) 100 08/24/19 01:19 77 18 70 08/24/19 01:00 73 21 147/99 (115) 99 08/24/19 00:05 153/67 08/24/19 00:04 153/67 08/24/19 00:00 99.5 68 23 153/67 (95) 100 08/24/19 00:00 70 08/24/19 00:00 Mechanical Ventilator Mechanical Ventilator 08/24/19 00:00 70 08/23/19 23:41 68 18 70 08/23/19 23:00 69 26 157/68 (97) 100 08/23/19 22:00 68 22 150/76 (100) 100 08/23/19 21:16 67 18 70 08/23/19 21:00 68 21 146/79 (101) 99 08/23/19 20:00 Mechanical Ventilator Mechanical Ventilator 08/23/19 20:00 70 08/23/19 20:00 99.0 69 18 160/73 (102) 100 08/23/19 20:00 72 08/23/19 19:36 79 18 70 08/23/19 19:00 68 22 155/71 (99) 100 08/23/19 18:00 73 18 146/81 (102) 100 08/23/19 17:06 96 22 70 08/23/19 17:00 103 18 136/95 (109) 100 08/23/19 16:00 93 08/23/19 16:00 Mechanical Ventilator Mechanical Ventilator 08/23/19 16:00 99.4 78 17 164/82 (109) 100 08/23/19 16:00 70 08/23/19 15:19 97 18 70 08/23/19 15:00 74 17 162/82 (108) 100 I&O Intake and Output 08/23/19 08/24/19 19:00 07:00 Intake Total 1680 ml 405 ml Balance 1680 ml 405 ml Intake Free Water 120 ml IV Total 210 ml 55 ml Tube Feeding 350 ml 350 ml Hemodialysis 1000 ml # Bowel Movements 4 3 Dressing: other Wound: other Drains: other Cardiovascular: RSR Respiratory: decreased breath sounds Abdomen: soft, present bowel sounds Extremities: no cyanosis Laboratory Tests Test 08/24/19 06:10 White Blood Count 4.7 K/UL (4.8-10.8) L Red Blood Count 2.70 M/UL (4.20-5.40) L Hemoglobin 8.3 G/DL (12.0-16.0) L Hematocrit 24.6 % (37.0-47.0) L Mean Corpuscular Volume 91 FL (80-99) Mean Corpuscular Hemoglobin 30.8 PG (27.0-31.0) Mean Corpuscular Hemoglobin Concent 33.8 G/DL (32.0-36.0) Red Cell Distribution Width 17.0 % (11.6-14.8) H Platelet Count 331 K/UL (150-450) Mean Platelet Volume 7.1 FL (6.5-10.1) Neutrophils (%) (Auto) 55.5 % (45.0-75.0) Lymphocytes (%) (Auto) 33.6 % (20.0-45.0) Monocytes (%) (Auto) 7.8 % (1.0-10.0) Eosinophils (%) (Auto) 0.9 % (0.0-3.0) Basophils (%) (Auto) 2.3 % (0.0-2.0) H Sodium Level 135 MMOL/L (136-145) L Potassium Level 3.7 MMOL/L (3.5-5.1) Chloride Level 100 MMOL/L (98-107) Carbon Dioxide Level 29 MMOL/L (21-32) Anion Gap 7 mmol/L (5-15) Blood Urea Nitrogen 30 mg/dL (7-18) H Creatinine 2.9 MG/DL (0.55-1.30) H Estimat Glomerular Filtration Rate 15.7 mL/min (>60) Glucose Level 115 MG/DL (74-106) H Calcium Level 8.1 MG/DL (8.5-10.1) L Phosphorus Level 2.5 MG/DL (2.5-4.9) Magnesium Level 2.0 MG/DL (1.8-2.4) Total Bilirubin 0.4 MG/DL (0.2-1.0) Aspartate Amino Transf (AST/SGOT) 18 U/L (15-37) Alanine Aminotransferase (ALT/SGPT) < 6 U/L (12-78) L Alkaline Phosphatase 132 U/L (46-116) H C-Reactive Protein, Quantitative 5.3 mg/dL (0.00-0.90) H Pro-B-Type Natriuretic Peptide Pending Total Protein 5.1 G/DL (6.4-8.2) L Albumin 1.5 G/DL (3.4-5.0) L Globulin 3.6 g/dL Albumin/Globulin Ratio 0.4 (1.0-2.7) L Assessment Post-op Diagnosis same Plan Problems: (1) Malnutrition Assessment & Plan: DAILY ESTIMATED NEEDS: Needs based on ESRD+ HD, underweight, wound/ 39.5kg 35-40 kcals/kg 6965-9990 total kcals 1.25-1.8 g protein/kg 49-71 g total protein 20-22 mL/kg 790-869 total fluid mLs NUTRITION DIAGNOSIS: * Increased kcal and protein needs r/t underweight status, HD needs, wuond healing as evidenced by pt is underweight per guidelines, ESRD, on HD, admitted non-blanching erythema wounds @ BL heels and sacrum * Swallowing difficulty R/T dysphagia as evidenced by [employer]ETING [employer] CONSULTANT recommends temporary nonoral feeding at this time, s/p NGT insertion, on NGT feeding-> now s/p self removal, NPO. CURRENT TF:NPO PO DIET RECOMMENDATIONS: WHEN SAFE FOR ORAL DIET -> renal/ texture per MARKETING DAT[employer]ASE CONSULTANT ENTERAL NUTRITION RECOMMENDATIONS: W/ GI access: Nepro @ 35ml/hr x 22 hrs to provide 770ml, 1386kcal, 62g prot, 560ml free water * W/ GI access, resume TF on Nepro * Initiate Nepro @ 15ml/hr x 6 hrs, advance 10ml q 4-6 hrs as tolerated to goal rate. * Hold 1 hour before and after Synthroid med * HOB over 30 degrees/ water flush per MD. ADDITIONAL RECOMMENDATIONS: 1) Calibrated bed scale wt for accurate CBW -> daily wt monitoring Per HD record: dry wt on 07/30=39.5kg (87lbs) 2) Wound care: (W/ GI access) add Nephorivte x 1 + Balta BID 3) Monitor NPO status: without GI access at this time, s/p pulling out NGT 4) Monitor for hypoglycemia while NPO 5) Monitor for continuity of HD (2) Septic arthritis Assessment & Plan: Pt presented on admission with generalized scaly rash . pt noted to be restless and scratching at skin. Bleeding from oral mucosa noted. Joint deformity noted to R shoulder. Surgical incision approximated with 11 sutures. Erythema but no exudate,or elevation in skin temp at site of incision. Historical incision R hip that is tunneled.Small amt seropurulent exudate noted. Periwound is erythematous,but no elevation in skin temp noted. No odor noted. Non-blanching erythema noted to sacrum. Perianal area is erythematous and excoriated. L heel is boggy with non-blanching erythema. R heel is soft with non-blanching erythema. No evidence of skin breakdown to all other bony prominences. Tx.plan: Cover R shoulder with Drsg and change daily and prn. Cleanse R hip wound with Saline. Apply Therahoney.Apply Cavilon Skin Barrier periwound. Cover with Optifoam drsg. Change every 3 days and prn. Apply Moisture Barrier Paste to perianal area and buttocks. Cover Sacrum with Optifoam drsg. Change every 3 days and prn. Apply Cavilon Skin Barrier to both heels. Cover each heel with Optifoam drsg. Change every 7 days and prn. APM/ELVIA Mattress overlay. Reposition at least every 2hours or as tolerated. Off-load heels with pillow. HD cath necessary HD as renal likely will need intubation (3) Wound, open, hip or thigh with complication Assessment & Plan: slow healing will need nutritional optimization difficult ng tube peg when stable sutures removed from right shoulder comfortable wean vent may need trach (4) Abscess of right hip (5) possible septic arthritis Additional Comments HD cath [id number] plan to change tomorrow ErikaMerlynCamilo Aug 24, 2019 14:30
--- NOTE | 2019-08-24 14:52 | Diagnostic Imaging Report ---
Indication: Cough, dyspnea Technique: One view of the chest Comparison: 08/20/2019 Findings: Stable satisfactory position of endotracheal tube. Right lung pleural space remain clear. Extensive pleural fluid and consolidation in the left lung is again demonstrated, appearing slightly increased. Previously demonstrated pneumoperitoneum is not currently evident. Impression: Worsening left lung consolidation and pleural fluid, over 4 days. Other findings as described
--- NOTE | 2019-08-24 18:43 | Pulmonolgy Critical Care Note ---
Critical Care - Asmt/Plan Assessment/Plan: Pulmonary CCM Progress Note Assessment/Plan respiratory failure hemoptysis resolved hypoxemia chronic renal failure toxic met encephalopathy severe protein calorie malnutrition cachexia left lung whiteout/collapse, improved with intubation s/p intubation anemia pulmonary edema with elevated BNP PLAN care noted vent support as is failed weaning d/w family as to trach for best weaning and long term care administrator care as still full code keep negative antibiotics noted monitor imaging for change elevated head and monitor ROM watch fluid status nutrition as able off load ICU care and management critical at present requires ICU management and close follow up care feeds as able medications/laboratory data/nursing notes/ICU care reviewed in detail note reviewed and edited care discussed with RN and RT ICU time spent >40 minutes coordinating care Critical Care - Subjective Interval Events: care noted remains on vent left lung reexpanded d/w RN and renal likely will not wean poor LOC remains critical ROS Limited/Unobtainable: Yes Condition: critical EKG Rhythm: Sinus Rhythm Residuals: minimal Tube Feeding Tolerated: yes Labs Noted Objective: Vital signs noted Intubated WDWN NAD BS equal bilaterally [id number] without MRG NABS nontender no HSM no CCE contractures poorly responsive nonfocal reviewed and edited Micro: Imaging noted Microbiology Date/Time Source Procedure Growth Status 08/14/19 05:10 Blood Blood Culture - Preliminary NO GROWTH AFTER 48 HOURS Resulted 08/14/19 04:55 Blood Blood Culture - Preliminary NO GROWTH AFTER 48 HOURS Resulted Critical Care - Objective Last 24 Hour Vital Signs Date Time Temp Pulse Resp B/P (MAP) Pulse Ox O2 Delivery O2 Flow Rate FiO2 08/24/19 18:00 64 21 138/57 (84) 100 08/24/19 17:19 140/67 08/24/19 17:18 64 140/67 08/24/19 17:18 140/67 08/24/19 17:06 63 18 40 08/24/19 17:00 63 19 140/67 (91) 100 08/24/19 16:00 70 08/24/19 16:00 62 19 148/70 (96) 100 08/24/19 16:00 62 08/24/19 16:00 Mechanical Ventilator Mechanical Ventilator 08/24/19 15:20 68 22 40 08/24/19 15:00 63 18 152/72 (98) 100 08/24/19 14:00 66 20 141/63 (89) 100 08/24/19 13:00 61 18 142/60 (87) 100 08/24/19 12:38 63 18 40 08/24/19 12:32 143/59 08/24/19 12:32 143/59 08/24/19 12:30 64 23 133/61 (85) 100 08/24/19 12:00 70 08/24/19 12:00 61 08/24/19 12:00 99.8 61 22 135/49 (77) 100 08/24/19 12:00 Mechanical Ventilator Mechanical Ventilator 08/24/19 11:21 60 18 40 08/24/19 11:00 64 18 141/57 (85) 100 08/24/19 10:00 67 26 152/60 (90) 100 08/24/19 09:30 100 08/24/19 09:30 58 30 147/60 (89) 100 08/24/19 09:29 58 18 40 08/24/19 09:00 59 25 125/92 (103) 100 08/24/19 08:48 61 08/24/19 08:30 61 20 139/61 (87) 100 08/24/19 08:27 65 138/58 08/24/19 08:00 70 08/24/19 08:00 Mechanical Ventilator Mechanical Ventilator 08/24/19 08:00 100.0 61 30 137/62 (87) 100 08/24/19 07:11 61 18 40 08/24/19 07:00 61 25 130/63 (85) 100 08/24/19 06:30 62 24 08/24/19 06:00 62 24 143/70 (94) 100 08/24/19 05:59 148/83 08/24/19 05:59 148/83 08/24/19 05:00 72 23 159/65 (96) 100 08/24/19 04:55 72 18 70 08/24/19 04:00 61 08/24/19 04:00 98.0 64 23 146/64 (91) 100 08/24/19 04:00 Mechanical Ventilator Mechanical Ventilator 08/24/19 04:00 70 08/24/19 03:41 63 18 70 08/24/19 03:00 63 22 148/58 (88) 100 08/24/19 02:00 63 24 145/64 (91) 100 08/24/19 01:19 77 18 70 08/24/19 01:00 73 21 147/99 (115) 99 08/24/19 00:05 153/67 08/24/19 00:04 153/67 08/24/19 00:00 99.5 68 23 153/67 (95) 100 08/24/19 00:00 70 08/24/19 00:00 Mechanical Ventilator Mechanical Ventilator 08/24/19 00:00 70 08/23/19 23:41 68 18 70 08/23/19 23:00 69 26 157/68 (97) 100 08/23/19 22:00 68 22 150/76 (100) 100 08/23/19 21:16 67 18 70 08/23/19 21:00 68 21 146/79 (101) 99 08/23/19 20:00 Mechanical Ventilator Mechanical Ventilator 08/23/19 20:00 70 08/23/19 20:00 99.0 69 18 160/73 (102) 100 08/23/19 20:00 72 08/23/19 19:36 79 18 70 08/23/19 19:00 68 22 155/71 (99) 100 Micro: Microbiology Date/Time Source Procedure Growth Status 08/22/19 04:30 Other Blood Culture - Preliminary NO GROWTH AFTER 48 HOURS Resulted 08/22/19 00:55 Sputum Gram Stain - Final Complete 08/22/19 00:55 Sputum Sputum Culture - Final NO GROWTH AFTER 48 HOURS Complete Accucheck: 133 Critical Care - Subjective ROS Limited/Unobtainable: No FI02: 40 Vent Support Breath Rate: 18 Vent Support Mode: AC Sputum Amount: Moderate PEEP: 5.0 PIP: 20 Tube Feeding Amount: 35 I&O: Intake and Output 08/23/19 08/24/19 19:00 07:00 Intake Total 1680 ml 405 ml Balance 1680 ml 405 ml Intake Free Water 120 ml IV Total 210 ml 55 ml Tube Feeding 350 ml 350 ml Hemodialysis 1000 ml # Bowel Movements 4 3 ET-Tube: 7.0 ET Position: 19 Abel Graham MD Aug 24, 2019 18:43
--- NOTE | 2019-08-24 19:20 | General Progress Note ---
Assessment/Plan Status: stable, not improved, unchanged, deteriorating Assessment/Plan: Assessment - Severe ulcerative esophagitis on endoscopy - on BID PPI - Resp failure --> now intubated - thrombocytopenia --> resolved - Renal failure --> now on HD, stablized - aspiration risk --> s/p PEG - anemia - bradycardia - Poor prognosis Recommendations - Continue TF - elevate HOB - monitor H&H Subjective Allergies: Coded Allergies: VANCOMYCIN (Unverified Allergy, Unknown, 08/02/19) Subjective Above noted d/w RN tolerating TF being weaned off vent Objective Last 24 Hour Vital Signs Date Time Temp Pulse Resp B/P (MAP) Pulse Ox O2 Delivery O2 Flow Rate FiO2 08/24/19 19:00 60 25 118/58 (78) 100 08/24/19 18:00 64 21 138/57 (84) 100 08/24/19 17:19 140/67 08/24/19 17:18 64 140/67 08/24/19 17:18 140/67 08/24/19 17:06 63 18 40 08/24/19 17:00 63 19 140/67 (91) 100 08/24/19 16:00 70 08/24/19 16:00 62 19 148/70 (96) 100 08/24/19 16:00 62 08/24/19 16:00 Mechanical Ventilator Mechanical Ventilator 08/24/19 15:20 68 22 40 08/24/19 15:00 99.8 63 18 152/72 (98) 100 08/24/19 14:00 66 20 141/63 (89) 100 08/24/19 13:00 61 18 142/60 (87) 100 08/24/19 12:38 63 18 40 08/24/19 12:32 143/59 08/24/19 12:32 143/59 08/24/19 12:30 64 23 133/61 (85) 100 08/24/19 12:00 70 08/24/19 12:00 61 08/24/19 12:00 99.8 61 22 135/49 (77) 100 08/24/19 12:00 Mechanical Ventilator Mechanical Ventilator 08/24/19 11:21 60 18 40 08/24/19 11:00 64 18 141/57 (85) 100 08/24/19 10:00 67 26 152/60 (90) 100 08/24/19 09:30 100 08/24/19 09:30 58 30 147/60 (89) 100 08/24/19 09:29 58 18 40 08/24/19 09:00 59 25 125/92 (103) 100 08/24/19 08:48 61 08/24/19 08:30 61 20 139/61 (87) 100 08/24/19 08:27 65 138/58 08/24/19 08:00 70 08/24/19 08:00 Mechanical Ventilator Mechanical Ventilator 08/24/19 08:00 100.0 61 30 137/62 (87) 100 08/24/19 07:11 61 18 40 08/24/19 07:00 61 25 130/63 (85) 100 08/24/19 06:30 62 24 08/24/19 06:00 62 24 143/70 (94) 100 08/24/19 05:59 148/83 08/24/19 05:59 148/83 08/24/19 05:00 72 23 159/65 (96) 100 08/24/19 04:55 72 18 70 08/24/19 04:00 61 08/24/19 04:00 98.0 64 23 146/64 (91) 100 08/24/19 04:00 Mechanical Ventilator Mechanical Ventilator 08/24/19 04:00 70 08/24/19 03:41 63 18 70 08/24/19 03:00 63 22 148/58 (88) 100 08/24/19 02:00 63 24 145/64 (91) 100 08/24/19 01:19 77 18 70 08/24/19 01:00 73 21 147/99 (115) 99 08/24/19 00:05 153/67 08/24/19 00:04 153/67 08/24/19 00:00 99.5 68 23 153/67 (95) 100 08/24/19 00:00 70 08/24/19 00:00 Mechanical Ventilator Mechanical Ventilator 08/24/19 00:00 70 08/23/19 23:41 68 18 70 08/23/19 23:00 69 26 157/68 (97) 100 08/23/19 22:00 68 22 150/76 (100) 100 08/23/19 21:16 67 18 70 08/23/19 21:00 68 21 146/79 (101) 99 08/23/19 20:00 Mechanical Ventilator Mechanical Ventilator 08/23/19 20:00 70 08/23/19 20:00 99.0 69 18 160/73 (102) 100 08/23/19 20:00 72 08/23/19 19:36 79 18 70 Intake and Output 08/23/19 08/24/19 19:00 07:00 Intake Total 1680 ml 405 ml Balance 1680 ml 405 ml Intake Free Water 120 ml IV Total 210 ml 55 ml Tube Feeding 350 ml 350 ml Hemodialysis 1000 ml # Bowel Movements 4 3 Laboratory Tests 08/24/19 06:10: White Blood Count 4.7L, Red Blood Count 2.70L, Hemoglobin 8.3L, Hematocrit 24.6L , Mean Corpuscular Volume 91, Mean Corpuscular Hemoglobin 30.8, Mean Corpuscular Hemoglobin Concent 33.8, Red Cell Distribution Width 17.0H, Platelet Count 331, Mean Platelet Volume 7.1, Neutrophils (%) (Auto) 55.5, Lymphocytes (%) (Auto) 33.6, Monocytes (%) (Auto) 7.8, Eosinophils (%) (Auto) 0.9, Basophils (%) (Auto) 2.3H, Sodium Level 135L, Potassium Level 3.7, Chloride Level 100, Carbon Dioxide Level 29, Anion Gap 7, Blood Urea Nitrogen 30H, Creatinine 2.9H, Estimat Glomerular Filtration Rate 15.7, Glucose Level 115H, Calcium Level 8.1L, Phosphorus Level 2.5, Magnesium Level 2.0, Total Bilirubin 0.4, Aspartate Amino Transf (AST/SGOT) 18, Alanine Aminotransferase ( ALT/SGPT) < 6L, Alkaline Phosphatase 132H, C-Reactive Protein, Quantitative 5.3H , Pro-B-Type Natriuretic Peptide [Pending], Total Protein 5.1L, Albumin 1.5L, Globulin 3.6, Albumin/Globulin Ratio 0.4L Height (Feet): 5 Height (Inches): 4.00 Weight (Pounds): 98 Objective Debilitated frail woman NCAT (+) ETT supple scattered ronchi RR abd soft ND NT, (+) GT no edema Cristy Elizondo MD Aug 24, 2019 19:20
[2019-08-24] MEDS: Dyna-Hex 2% Top Sol 2oz TOPIC SCH (20:49)
[2019-08-24] MEDS ORDERED: Meropenem 500 MG in NS 55 ML IVPB SCH (21:00)
[2019-08-24] MEDS: Epoetin Alfa-EPBX(ESRD on dialysis)4000 units/ml vial SUBQ SCH (21:07)
[2019-08-25] VITALS (25 sets, daily range): BP systolic 109–170; BP diastolic 55–92
--- NOTE | 2019-08-25 01:00 | Progress Note ---
DATE: 08/24/2019 CARDIOLOGY PROGRESS NOTE SUBJECTIVE: The patient's condition remains critical. Prognosis guarded. She remains on ventilator support. Weaning efforts have been largely unsuccessful. OBJECTIVE: VITAL SIGNS: Blood pressure 138/58, pulse 65, and respirations 18. Monitor sinus and sinus bradycardia. No pauses. LUNGS: Coarse breath sounds. Endotracheal tube in place. Few rhonchi. CARDIAC: Regular rhythm and rate. Normal S1, S2. ABDOMEN: Soft. EXTREMITIES: Trace edema. LABORATORY DATA: White count 4.7, hemoglobin 8.3. Sodium 135, potassium 3.7, bicarb 29. Albumin 1.5. Chest x-ray today revealed left worsening pleural fluid and consolidation of the left lung. IMPRESSION: 1. Respiratory failure. 2. Sepsis with recovering shock. 3. Healthcare-associated pneumonia with parapneumonic effusion. 4. End-stage renal disease. 5. Acute on chronic diastolic congestive heart failure. 6. 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 PLAN: 1. Weaning efforts. 2. Hemodialysis with ultrafiltration for volume management. 3. Titrate antihypertensive and anti-failure drugs based on clinical parameters. 4. DVT prophylaxis. 5. Nutrition by feeding tube. Abel Stubbs M.D. DR: [place] JOB#: [id number] CC:
[2019-08-25 04:19] LABS: BASOPHILS % (AUTO) 1.5 % (0.0-2.0); EOSINOPHILS % (AUTO) 1.1 % (0.0-3.0); HEMATOCRIT 31.1 % (37.0-47.0); HEMOGLOBIN 10.4 G/DL (12.0-16.0); LYMPHOCYTES % (AUTO) 46.7 % (20.0-45.0); MEAN CORPUSCULAR VOLUME 91 FL (80-99); MONOCYTES % (AUTO) 6.1 % (1.0-10.0); NEUTROPHILS % (AUTO) 44.6 % (45.0-75.0); PLATELET COUNT 444 K/UL (150-450); RED BLOOD COUNT 3.43 M/UL (4.20-5.40); RED CELL DISTRIBUTION WIDTH 16.2 % (11.6-14.8); WHITE BLOOD COUNT 7.3 K/UL (4.8-10.8)
[2019-08-25 04:43] LABS: ALANINE AMINOTRANSFERASE 10 U/L (12-78); ALBUMIN 1.6 G/DL (3.4-5.0); ALBUMIN/GLOBULIN RATIO 0.4 (1.0-2.7); ALKALINE PHOSPHATASE 194 U/L (46-116); ANION GAP 8 mmol/L (5-15); ASPARTATE AMINO TRANSFERASE 22 U/L (15-37); BILIRUBIN,TOTAL 0.4 MG/DL (0.2-1.0); BLOOD UREA NITROGEN 40 mg/dL (7-18); CALCIUM 8.8 MG/DL (8.5-10.1); CARBON DIOXIDE 27 MMOL/L (21-32); CHLORIDE 98 MMOL/L (98-107); CREATININE 3.3 MG/DL (0.55-1.30); PHOSPHORUS 3.2 MG/DL (2.5-4.9); SODIUM 133 MMOL/L (136-145)
--- NOTE | 2019-08-25 06:23 | General Progress Note ---
Assessment/Plan Problem List: (1) Hypothyroid ICD Codes: E03.9 - Hypothyroidism, unspecified SNOMED: 86418992 (2) ESRD (end stage renal disease) on dialysis ICD Codes: N18.6 - End stage renal disease; Z99.2 - Dependence on renal dialysis SNOMED: 764343227 (3) Hypotension ICD Codes: I95.9 - Hypotension, unspecified SNOMED: 35062667 Qualifiers: Qualified Codes: I95.3 - Hypotension of hemodialysis (4) Pneumonia ICD Codes: J18.9 - Pneumonia, unspecified organism SNOMED: 649329432 Qualifiers: Qualified Codes: J18.9 - Pneumonia, unspecified organism (5) Diabetes mellitus ICD Codes: E11.9 - Type 2 diabetes mellitus without complications SNOMED: 10756059 Status: stable, not improved, unchanged, deteriorating Assessment/Plan: glucose values are stable continue glucose monitoring continue Levothyroxine IV 50 mcg corie repeat TSH, free T4 next week Subjective ROS Limited/Unobtainable: Yes Allergies: Coded Allergies: VANCOMYCIN (Unverified Allergy, Unknown, 08/02/19) Subjective events noted interval notes reviewed intubated in ICU on TF glucose values are stable Item Value Date Time Bedside Blood Glucose 145 mg/dl H 08/25/19 0000 Bedside Blood Glucose 129 mg/dl H 08/24/19 1800 Bedside Blood Glucose 133 mg/dl H 08/24/19 1200 Bedside Blood Glucose 123 mg/dl H 08/24/19 0600 Bedside Blood Glucose 120 mg/dl 08/24/19 0000 Objective Last 24 Hour Vital Signs Date Time Temp Pulse Resp B/P (MAP) Pulse Ox O2 Delivery O2 Flow Rate FiO2 08/25/19 05:19 60 18 40 08/25/19 05:00 58 21 140/60 (86) 100 08/25/19 04:00 98.1 59 21 124/60 (81) 100 08/25/19 04:00 40 08/25/19 04:00 Mechanical Ventilator Mechanical Ventilator 08/25/19 03:14 83 08/25/19 03:00 61 25 140/59 (86) 100 08/25/19 02:52 62 20 40 08/25/19 02:00 58 36 139/58 (85) 100 08/25/19 01:00 58 39 145/60 (88) 100 08/25/19 00:48 56 18 40 08/25/19 00:00 98.3 59 35 135/66 (89) 100 08/25/19 00:00 Mechanical Ventilator Mechanical Ventilator 08/24/19 23:40 127/62 08/24/19 23:40 127/62 08/24/19 23:30 60 18 40 08/24/19 23:27 58 08/24/19 23:00 59 18 127/61 (83) 100 08/24/19 22:00 63 24 136/64 (88) 100 08/24/19 21:26 64 18 40 08/24/19 21:00 63 19 127/59 (81) 100 08/24/19 20:00 Mechanical Ventilator Mechanical Ventilator 08/24/19 20:00 98.9 62 21 135/65 (88) 100 08/24/19 20:00 40 08/24/19 19:30 60 19 40 08/24/19 19:29 61 08/24/19 19:00 60 25 118/58 (78) 100 08/24/19 18:00 64 21 138/57 (84) 100 08/24/19 17:19 140/67 08/24/19 17:18 64 140/67 08/24/19 17:18 140/67 08/24/19 17:06 63 18 40 08/24/19 17:00 63 19 140/67 (91) 100 08/24/19 16:00 70 08/24/19 16:00 62 19 148/70 (96) 100 08/24/19 16:00 62 08/24/19 16:00 Mechanical Ventilator Mechanical Ventilator 08/24/19 15:20 68 22 40 08/24/19 15:00 99.8 63 18 152/72 (98) 100 08/24/19 14:00 66 20 141/63 (89) 100 08/24/19 13:00 61 18 142/60 (87) 100 08/24/19 12:38 63 18 40 08/24/19 12:32 143/59 08/24/19 12:32 143/59 08/24/19 12:30 64 23 133/61 (85) 100 08/24/19 12:00 70 08/24/19 12:00 61 08/24/19 12:00 99.8 61 22 135/49 (77) 100 08/24/19 12:00 Mechanical Ventilator Mechanical Ventilator 08/24/19 11:21 60 18 40 08/24/19 11:00 64 18 141/57 (85) 100 08/24/19 10:00 67 26 152/60 (90) 100 08/24/19 09:30 100 08/24/19 09:30 58 30 147/60 (89) 100 08/24/19 09:29 58 18 40 08/24/19 09:00 59 25 125/92 (103) 100 08/24/19 08:48 61 08/24/19 08:30 61 20 139/61 (87) 100 08/24/19 08:27 65 138/58 08/24/19 08:00 70 08/24/19 08:00 Mechanical Ventilator Mechanical Ventilator 08/24/19 08:00 100.0 61 30 137/62 (87) 100 08/24/19 07:11 61 18 40 08/24/19 07:00 61 25 130/63 (85) 100 08/24/19 06:30 62 24 Intake and Output 08/24/19 08/25/19 19:00 07:00 Intake Total 620 ml 650 ml Balance 620 ml 650 ml Intake Free Water 280 ml IV Total 100 ml 55 ml Tube Feeding 420 ml 315 ml Other 100 ml # Voids 4 # Bowel Movements 4 4 Laboratory Tests 08/25/19 03:10: White Blood Count 7.3#, Red Blood Count 3.43L, Hemoglobin 10.4L, Hematocrit 31.1L, Mean Corpuscular Volume 91, Mean Corpuscular Hemoglobin 30.4, Mean Corpuscular Hemoglobin Concent 33.5, Red Cell Distribution Width 16.2H, Platelet Count 444, Mean Platelet Volume 7.1, Neutrophils (%) (Auto) 44.6L, Lymphocytes (%) (Auto) 46.7H, Monocytes (%) (Auto) 6.1, Eosinophils (%) (Auto) 1.1, Basophils (%) (Auto) 1.5, Sodium Level 133L, Potassium Level 4.0, Chloride Level 98, Carbon Dioxide Level 27, Anion Gap 8, Blood Urea Nitrogen 40H, Creatinine 3.3H, Estimat Glomerular Filtration Rate 13.5, Glucose Level 151H, Calcium Level 8.8, Phosphorus Level 3.2, Magnesium Level 2.4, Total Bilirubin 0.4, Aspartate Amino Transf (AST/SGOT) 22, Alanine Aminotransferase (ALT/SGPT) 10L, Alkaline Phosphatase 194H, C-Reactive Protein, Quantitative 6.2H, Pro-B- Type Natriuretic Peptide [Pending], Total Protein 6.0L, Albumin 1.6L, Globulin 4.4, Albumin/Globulin Ratio 0.4L Height (Feet): 5 Height (Inches): 4.00 Weight (Pounds): 98 General Appearance: other - intubated EENT: other - ETT Cardiovascular: normal rate Respiratory/Chest: decreased breath sounds Abdomen: normal bowel sounds Pelvis: normal external exam Objective Current Medications Medications (Trade) Dose Ordered Sig/Javier Route PRN Reason Start Time Stop Time Status Last Admin Dose Admin Amlodipine Besylate (Norvasc) 5 mg BID NG 08/23/19 01:45 09/22/19 01:44 08/24/19 17:18 Atropine Sulfate (Atropine) 1 mg Q4H PRN IVP Per rx protocol 08/13/19 08:30 09/12/19 08:29 Chlorhexidine Gluconate (Nae-Hex 2%) 1 applic DAILY@2000 TOPIC 08/15/19 20:00 09/14/19 19:59 08/24/19 20:49 Dextrose (Dextrose 50%) 50 ml Q30M PRN IV Hypoglycemia 08/11/19 10:30 09/04/19 17:44 08/22/19 15:46 Diphenhydramine HCl (Benadryl) 50 mg Q4H PRN IVP Itching 08/09/19 14:30 09/08/19 14:29 08/13/19 02:39 Epoetin Thomas (Epoetin Thomas(ESRD on dialysis)) 4,000 unit THU-THU-THU SUBQ 08/12/19 21:00 09/11/19 20:59 08/24/19 21:07 Fluconazole/ Sodium Chloride 100 ml @ 100 mls/hr Q24H IV 08/18/19 13:00 08/29/19 23:59 08/24/19 12:33 Hydralazine HCl (Apresoline) 10 mg Q4H PRN IV For High Blood Pressure 08/18/19 12:44 09/17/19 12:43 08/22/19 09:22 Hydralazine HCl (Apresoline) 25 mg Q6HR NG 08/23/19 06:00 09/22/19 05:59 08/24/19 23:40 Lansoprazole (Prevacid) 30 mg BID GT 08/19/19 09:00 09/18/19 08:59 08/24/19 17:19 Levothyroxine Sodium (Synthroid) 50 mcg DAILY@0630 ORAL 08/25/19 06:30 09/24/19 06:29 Meropenem 500 mg/ Sodium Chloride 55 ml @ 110 mls/hr Q24H IVPB 08/24/19 21:00 08/29/19 20:59 08/24/19 20:49 Metoclopramide HCl (Reglan) 5 mg Q8H PRN IVP Nausea & Vomiting 08/09/19 12:39 09/08/19 12:38 Nitroglycerin (Nitro-Bid) 1 inch Q6HR TOPIC 08/09/19 12:39 09/08/19 12:38 08/24/19 23:40 Antonio Jacome MD Aug 25, 2019 06:23
[2019-08-25] MEDS: HydrALAZINE 25mg tab NG SCH ×3 (06:39→17:05)
[2019-08-25] MEDS: Nitroglycerin 2% oint pkt TOPIC SCH ×3 (06:39→17:05)
--- NOTE | 2019-08-25 08:43 | Critical Care Progress Note ---
Assessment/Plan Assessment/Plan respiratory failure hemoptysis resolved hypoxemia chronic renal failure toxic met encephalopathy severe protein calorie malnutrition cachexia left lung whiteout/collapse, improved with intubation s/p intubation anemia pulmonary edema with elevated BNP PLAN repeat chest US care noted and reviewed vent support as is/ will try SIMV if able failed weaning past few days d/w family as to trach vs terminal care keep negative antibiotics noted monitor CXR and review elevated head and monitor ROM watch fluid status nutrition as able off load ICU care and management critical at present requires ICU management and close follow up care feeds as able medications/laboratory data/nursing notes/ICU care reviewed in detail note reviewed and edited care discussed with RN and RT ICU time spent >40 minutes coordinating care Critical Care - Subjective Interval Events: awaiting family decision on vent difficult to wean ICU care reviewed events x48 hours reviewed in detail ROS Limited/Unobtainable: Yes Condition: critical EKG Rhythm: Sinus Rhythm Residuals: minimal Tube Feeding Tolerated: yes I&O: Intake and Output 08/24/19 08/25/19 19:00 07:00 Intake Total 620 ml 685 ml Balance 620 ml 685 ml Intake Free Water 280 ml IV Total 100 ml 55 ml Tube Feeding 420 ml 350 ml Other 100 ml # Voids 5 # Bowel Movements 4 4 Critical Care - Objective CXR: worsening overall ET-Tube: 7.0 ET Position: 19 Last 24 Hour Vital Signs Date Time Temp Pulse Resp B/P (MAP) Pulse Ox O2 Delivery O2 Flow Rate FiO2 08/25/19 07:00 94 28 170/79 (109) 98 08/25/19 06:59 93 25 40 08/25/19 06:39 128/65 08/25/19 06:39 128/65 08/25/19 06:30 63 20 08/25/19 06:00 55 18 128/65 (86) 100 08/25/19 05:19 60 18 40 08/25/19 05:00 58 21 140/60 (86) 100 08/25/19 04:00 98.1 59 21 124/60 (81) 100 08/25/19 04:00 40 08/25/19 04:00 Mechanical Ventilator Mechanical Ventilator 08/25/19 03:14 83 08/25/19 03:00 61 25 140/59 (86) 100 08/25/19 02:52 62 20 40 08/25/19 02:00 58 36 139/58 (85) 100 08/25/19 01:00 58 39 145/60 (88) 100 08/25/19 00:48 56 18 40 08/25/19 00:00 98.3 59 35 135/66 (89) 100 08/25/19 00:00 Mechanical Ventilator Mechanical Ventilator 08/24/19 23:40 127/62 08/24/19 23:40 127/62 08/24/19 23:30 60 18 40 08/24/19 23:27 58 08/24/19 23:00 59 18 127/61 (83) 100 08/24/19 22:00 63 24 136/64 (88) 100 08/24/19 21:26 64 18 40 08/24/19 21:00 63 19 127/59 (81) 100 08/24/19 20:00 Mechanical Ventilator Mechanical Ventilator 08/24/19 20:00 98.9 62 21 135/65 (88) 100 08/24/19 20:00 40 08/24/19 19:30 60 19 40 08/24/19 19:29 61 08/24/19 19:00 60 25 118/58 (78) 100 08/24/19 18:00 64 21 138/57 (84) 100 08/24/19 17:19 140/67 08/24/19 17:18 64 140/67 08/24/19 17:18 140/67 08/24/19 17:06 63 18 40 08/24/19 17:00 63 19 140/67 (91) 100 08/24/19 16:00 70 08/24/19 16:00 62 19 148/70 (96) 100 08/24/19 16:00 62 08/24/19 16:00 Mechanical Ventilator Mechanical Ventilator 08/24/19 15:20 68 22 40 08/24/19 15:00 99.8 63 18 152/72 (98) 100 08/24/19 14:00 66 20 141/63 (89) 100 08/24/19 13:00 61 18 142/60 (87) 100 08/24/19 12:38 63 18 40 08/24/19 12:32 143/59 08/24/19 12:32 143/59 08/24/19 12:30 64 23 133/61 (85) 100 08/24/19 12:00 70 08/24/19 12:00 61 08/24/19 12:00 99.8 61 22 135/49 (77) 100 08/24/19 12:00 Mechanical Ventilator Mechanical Ventilator 08/24/19 11:21 60 18 40 08/24/19 11:00 64 18 141/57 (85) 100 08/24/19 10:00 67 26 152/60 (90) 100 08/24/19 09:30 100 08/24/19 09:30 58 30 147/60 (89) 100 08/24/19 09:29 58 18 40 08/24/19 09:00 59 25 125/92 (103) 100 08/24/19 08:48 61 Labs: Labs Test 08/23/19 09:05 08/23/19 09:56 08/24/19 06:10 08/25/19 03:10 White Blood Count 6.1 K/UL (4.8-10.8) 4.7 K/UL (4.8-10.8) 7.3 K/UL (4.8-10.8) Red Blood Count 3.45 M/UL (4.20-5.40) 2.70 M/UL (4.20-5.40) 3.43 M/UL (4.20-5.40) Hemoglobin 10.5 G/DL (12.0-16.0) 8.3 G/DL (12.0-16.0) 10.4 G/DL (12.0-16.0) Hematocrit 31.5 % (37.0-47.0) 24.6 % (37.0-47.0) 31.1 % (37.0-47.0) Mean Corpuscular Volume 91 FL (80-99) 91 FL (80-99) 91 FL (80-99) Mean Corpuscular Hemoglobin 30.4 PG (27.0-31.0) 30.8 PG (27.0-31.0) 30.4 PG (27.0-31.0) Mean Corpuscular Hemoglobin Concent 33.3 G/DL (32.0-36.0) 33.8 G/DL (32.0-36.0) 33.5 G/DL (32.0-36.0) Red Cell Distribution Width 17.6 % (11.6-14.8) 17.0 % (11.6-14.8) 16.2 % (11.6-14.8) Platelet Count 388 K/UL (150-450) 331 K/UL (150-450) 444 K/UL (150-450) Mean Platelet Volume 7.1 FL (6.5-10.1) 7.1 FL (6.5-10.1) 7.1 FL (6.5-10.1) Neutrophils (%) (Auto) 64.8 % (45.0-75.0) 55.5 % (45.0-75.0) 44.6 % (45.0-75.0) Lymphocytes (%) (Auto) 27.4 % (20.0-45.0) 33.6 % (20.0-45.0) 46.7 % (20.0-45.0) Monocytes (%) (Auto) 4.6 % (1.0-10.0) 7.8 % (1.0-10.0) 6.1 % (1.0-10.0) Eosinophils (%) (Auto) 1.4 % (0.0-3.0) 0.9 % (0.0-3.0) 1.1 % (0.0-3.0) Basophils (%) (Auto) 1.7 % (0.0-2.0) 2.3 % (0.0-2.0) 1.5 % (0.0-2.0) Sodium Level 136 MMOL/L (136-145) 135 MMOL/L (136-145) 133 MMOL/L (136-145) Potassium Level 4.4 MMOL/L (3.5-5.1) 3.7 MMOL/L (3.5-5.1) 4.0 MMOL/L (3.5-5.1) Chloride Level 101 MMOL/L (98-107) 100 MMOL/L (98-107) 98 MMOL/L (98-107) Carbon Dioxide Level 27 MMOL/L (21-32) 29 MMOL/L (21-32) 27 MMOL/L (21-32) Anion Gap 8 mmol/L (5-15) 7 mmol/L (5-15) 8 mmol/L (5-15) Blood Urea Nitrogen 45 mg/dL (7-18) 30 mg/dL (7-18) 40 mg/dL (7-18) Creatinine 3.6 MG/DL (0.55-1.30) 2.9 MG/DL (0.55-1.30) 3.3 MG/DL (0.55-1.30) Estimat Glomerular Filtration Rate 12.2 mL/min (>60) 15.7 mL/min (>60) 13.5 mL/min (>60) Glucose Level 132 MG/DL (74-106) 115 MG/DL (74-106) 151 MG/DL (74-106) Calcium Level 8.6 MG/DL (8.5-10.1) 8.1 MG/DL (8.5-10.1) 8.8 MG/DL (8.5-10.1) Thyroid Stimulating Hormone (TSH) 7.761 uiU/mL (0.358-3.740) Free Thyroxine 1.54 NG/DL (0.76-1.46) Arterial Blood pH 7.524 (7.350-7.450) Arterial Blood Partial Pressure CO2 33.3 mmHg (35.0-45.0) Arterial Blood Partial Pressure O2 130.4 mmHg (75.0-100.0) Arterial Blood HCO3 26.8 mmol/L (22.0-26.0) Arterial Blood Oxygen Saturation 98.3 % (95-100) Arterial Blood Base Excess 4.2 (-2-2) Cuauhtemoc Test Positive Phosphorus Level 2.5 MG/DL (2.5-4.9) 3.2 MG/DL (2.5-4.9) Magnesium Level 2.0 MG/DL (1.8-2.4) 2.4 MG/DL (1.8-2.4) Total Bilirubin 0.4 MG/DL (0.2-1.0) 0.4 MG/DL (0.2-1.0) Aspartate Amino Transf (AST/SGOT) 18 U/L (15-37) 22 U/L (15-37) Alanine Aminotransferase (ALT/SGPT) < 6 U/L (12-78) 10 U/L (12-78) Alkaline Phosphatase 132 U/L (46-116) 194 U/L (46-116) C-Reactive Protein, Quantitative 5.3 mg/dL (0.00-0.90) 6.2 mg/dL (0.00-0.90) Total Protein 5.1 G/DL (6.4-8.2) 6.0 G/DL (6.4-8.2) Albumin 1.5 G/DL (3.4-5.0) 1.6 G/DL (3.4-5.0) Globulin 3.6 g/dL 4.4 g/dL Albumin/Globulin Ratio 0.4 (1.0-2.7) 0.4 (1.0-2.7) Objective: WDWN NAD intubated reduced breath sounds bilaterally without rhonchi or wheeze [id number] without MRG NABS nontender no HSM no CCE contractures feeding tube in place no distention poorly responsive nonfocal cachectic reviewed and edited Accucheck: 104 Malcolm Cruz MD Aug 25, 2019 08:43
[2019-08-25] MEDS ORDERED: Albuterol/Ipratropium 3ml neb HHN PRN (09:30)
--- NOTE | 2019-08-25 10:26 | General Progress Note ---
Assessment/Plan Status: stable, not improved, unchanged, deteriorating Assessment/Plan: Assessment - Severe ulcerative esophagitis on endoscopy - on BID PPI - Resp failure --> now intubated - thrombocytopenia --> resolved - Renal failure --> now on HD, stablized - aspiration risk --> s/p PEG - anemia - bradycardia - Poor prognosis Recommendations - Continue TF - reduce water flushes - elevate HOB - monitor H&H Subjective Allergies: Coded Allergies: VANCOMYCIN (Unverified Allergy, Unknown, 08/02/19) Subjective Above noted d/w RN tolerating TF water flushes reduced due to hyponatremia Objective Last 24 Hour Vital Signs Date Time Temp Pulse Resp B/P (MAP) Pulse Ox O2 Delivery O2 Flow Rate FiO2 08/25/19 10:00 62 22 133/68 (89) 96 08/25/19 09:12 61 130/59 08/25/19 09:12 63 18 40 08/25/19 09:00 57 21 130/59 (82) 100 08/25/19 08:58 56 12 40 08/25/19 08:52 100 08/25/19 08:30 40 08/25/19 08:00 57 08/25/19 08:00 97.8 59 20 119/62 (81) 100 08/25/19 08:00 40 08/25/19 07:00 94 28 170/79 (109) 98 08/25/19 06:59 93 25 40 08/25/19 06:39 128/65 08/25/19 06:39 128/65 08/25/19 06:30 63 20 08/25/19 06:00 55 18 128/65 (86) 100 08/25/19 05:19 60 18 40 08/25/19 05:00 58 21 140/60 (86) 100 08/25/19 04:00 98.1 59 21 124/60 (81) 100 08/25/19 04:00 40 08/25/19 04:00 Mechanical Ventilator Mechanical Ventilator 08/25/19 03:14 83 08/25/19 03:00 61 25 140/59 (86) 100 08/25/19 02:52 62 20 40 08/25/19 02:00 58 36 139/58 (85) 100 08/25/19 01:00 58 39 145/60 (88) 100 08/25/19 00:48 56 18 40 08/25/19 00:00 98.3 59 35 135/66 (89) 100 08/25/19 00:00 Mechanical Ventilator Mechanical Ventilator 08/24/19 23:40 127/62 08/24/19 23:40 127/62 08/24/19 23:30 60 18 40 08/24/19 23:27 58 08/24/19 23:00 59 18 127/61 (83) 100 08/24/19 22:00 63 24 136/64 (88) 100 08/24/19 21:26 64 18 40 08/24/19 21:00 63 19 127/59 (81) 100 08/24/19 20:00 Mechanical Ventilator Mechanical Ventilator 08/24/19 20:00 98.9 62 21 135/65 (88) 100 08/24/19 20:00 40 08/24/19 19:30 60 19 40 08/24/19 19:29 61 08/24/19 19:00 60 25 118/58 (78) 100 08/24/19 18:00 64 21 138/57 (84) 100 08/24/19 17:19 140/67 08/24/19 17:18 64 140/67 08/24/19 17:18 140/67 08/24/19 17:06 63 18 40 08/24/19 17:00 63 19 140/67 (91) 100 08/24/19 16:00 70 08/24/19 16:00 62 19 148/70 (96) 100 08/24/19 16:00 62 08/24/19 16:00 Mechanical Ventilator Mechanical Ventilator 08/24/19 15:20 68 22 40 08/24/19 15:00 99.8 63 18 152/72 (98) 100 08/24/19 14:00 66 20 141/63 (89) 100 08/24/19 13:00 61 18 142/60 (87) 100 08/24/19 12:38 63 18 40 08/24/19 12:32 143/59 08/24/19 12:32 143/59 08/24/19 12:30 64 23 133/61 (85) 100 08/24/19 12:00 70 08/24/19 12:00 61 08/24/19 12:00 99.8 61 22 135/49 (77) 100 08/24/19 12:00 Mechanical Ventilator Mechanical Ventilator 08/24/19 11:21 60 18 40 08/24/19 11:00 64 18 141/57 (85) 100 Intake and Output 08/24/19 08/25/19 19:00 07:00 Intake Total 620 ml 685 ml Balance 620 ml 685 ml Intake Free Water 280 ml IV Total 100 ml 55 ml Tube Feeding 420 ml 350 ml Other 100 ml # Voids 5 # Bowel Movements 4 4 Laboratory Tests 08/25/19 03:10: White Blood Count 7.3#, Red Blood Count 3.43L, Hemoglobin 10.4L, Hematocrit 31.1L, Mean Corpuscular Volume 91, Mean Corpuscular Hemoglobin 30.4, Mean Corpuscular Hemoglobin Concent 33.5, Red Cell Distribution Width 16.2H, Platelet Count 444, Mean Platelet Volume 7.1, Neutrophils (%) (Auto) 44.6L, Lymphocytes (%) (Auto) 46.7H, Monocytes (%) (Auto) 6.1, Eosinophils (%) (Auto) 1.1, Basophils (%) (Auto) 1.5, Sodium Level 133L, Potassium Level 4.0, Chloride Level 98, Carbon Dioxide Level 27, Anion Gap 8, Blood Urea Nitrogen 40H, Creatinine 3.3H, Estimat Glomerular Filtration Rate 13.5, Glucose Level 151H, Calcium Level 8.8, Phosphorus Level 3.2, Magnesium Level 2.4, Total Bilirubin 0.4, Aspartate Amino Transf (AST/SGOT) 22, Alanine Aminotransferase (ALT/SGPT) 10L, Alkaline Phosphatase 194H, C-Reactive Protein, Quantitative 6.2H, Pro-B- Type Natriuretic Peptide [Pending], Total Protein 6.0L, Albumin 1.6L, Globulin 4.4, Albumin/Globulin Ratio 0.4L Height (Feet): 5 Height (Inches): 4.00 Weight (Pounds): 110 Objective Debilitated frail woman NCAT (+) ETT supple scattered ronchi RR abd soft ND NT, (+) GT no edema Cristy Elizondo MD Aug 25, 2019 10:26
--- NOTE | 2019-08-25 11:44 | Infectious Diseases Prog Note ---
Assessment/Plan Assessment/Plan A; 1. Hailee sepsis 2. Klebsiella sepsis , treated 3. Right shoulder septic arthritis, status post surgery. 4. Diabetes. 5. Hypertension. 6. Anemia 7. Thrombocytopenia improving 9. Atelectasis , left lung collapse PLAN: 1. Discontinue Meropenem 2. Continue Fluconazole X 4 days 3. change HD catheter Subjective ROS Limited/Unobtainable: Yes Respiratory: Reports: other - failed weaning Neurologic: Reports: other - more alert Allergies: Coded Allergies: VANCOMYCIN (Unverified Allergy, Unknown, 08/02/19) Objective Vital Signs Last 24 Hour Vital Signs Date Time Temp Pulse Resp B/P (MAP) Pulse Ox O2 Delivery O2 Flow Rate FiO2 08/25/19 11:00 69 27 141/67 (91) 98 08/25/19 10:55 59 18 40 08/25/19 10:00 62 22 133/68 (89) 96 08/25/19 09:12 61 130/59 08/25/19 09:12 63 18 40 08/25/19 09:00 57 21 130/59 (82) 100 08/25/19 08:58 56 12 40 08/25/19 08:52 100 08/25/19 08:30 40 08/25/19 08:00 57 08/25/19 08:00 97.8 59 20 119/62 (81) 100 08/25/19 08:00 Mechanical Ventilator Mechanical Ventilator Mechanical Ventilator Mechanical Ventilator 08/25/19 08:00 40 08/25/19 07:00 94 28 170/79 (109) 98 08/25/19 06:59 93 25 40 08/25/19 06:39 128/65 08/25/19 06:39 128/65 08/25/19 06:30 63 20 08/25/19 06:00 55 18 128/65 (86) 100 08/25/19 05:19 60 18 40 08/25/19 05:00 58 21 140/60 (86) 100 08/25/19 04:00 98.1 59 21 124/60 (81) 100 08/25/19 04:00 40 08/25/19 04:00 Mechanical Ventilator Mechanical Ventilator 08/25/19 03:14 83 08/25/19 03:00 61 25 140/59 (86) 100 08/25/19 02:52 62 20 40 08/25/19 02:00 58 36 139/58 (85) 100 08/25/19 01:00 58 39 145/60 (88) 100 08/25/19 00:48 56 18 40 08/25/19 00:00 98.3 59 35 135/66 (89) 100 08/25/19 00:00 Mechanical Ventilator Mechanical Ventilator 08/24/19 23:40 127/62 08/24/19 23:40 127/62 08/24/19 23:30 60 18 40 08/24/19 23:27 58 08/24/19 23:00 59 18 127/61 (83) 100 08/24/19 22:00 63 24 136/64 (88) 100 08/24/19 21:26 64 18 40 08/24/19 21:00 63 19 127/59 (81) 100 08/24/19 20:00 Mechanical Ventilator Mechanical Ventilator 08/24/19 20:00 98.9 62 21 135/65 (88) 100 08/24/19 20:00 40 08/24/19 19:30 60 19 40 08/24/19 19:29 61 08/24/19 19:00 60 25 118/58 (78) 100 08/24/19 18:00 64 21 138/57 (84) 100 08/24/19 17:19 140/67 08/24/19 17:18 64 140/67 08/24/19 17:18 140/67 08/24/19 17:06 63 18 40 08/24/19 17:00 63 19 140/67 (91) 100 08/24/19 16:00 70 08/24/19 16:00 62 19 148/70 (96) 100 08/24/19 16:00 62 08/24/19 16:00 Mechanical Ventilator Mechanical Ventilator 08/24/19 15:20 68 22 40 08/24/19 15:00 99.8 63 18 152/72 (98) 100 08/24/19 14:00 66 20 141/63 (89) 100 08/24/19 13:00 61 18 142/60 (87) 100 08/24/19 12:38 63 18 40 08/24/19 12:32 143/59 08/24/19 12:32 143/59 08/24/19 12:30 64 23 133/61 (85) 100 08/24/19 12:00 70 3/11/20 12:00 61 08/24/19 12:00 99.8 61 22 135/49 (77) 100 08/24/19 12:00 Mechanical Ventilator Mechanical Ventilator Height (Feet): 5 Height (Inches): 4.00 Weight (Pounds): 110 HEENT: other - orally intubated Respiratory/Chest: lungs clear, other - on ventilator Cardiovascular: normal rate, other - femoral HD line Abdomen: soft, non tender, other - GT Extremities: no edema Neurologic/Psychiatric: disoriented, other - opens eyes Laboratory Tests Test 08/25/19 03:10 White Blood Count 7.3 K/UL (4.8-10.8) # Red Blood Count 3.43 M/UL (4.20-5.40) L Hemoglobin 10.4 G/DL (12.0-16.0) L Hematocrit 31.1 % (37.0-47.0) L Mean Corpuscular Volume 91 FL (80-99) Mean Corpuscular Hemoglobin 30.4 PG (27.0-31.0) Mean Corpuscular Hemoglobin Concent 33.5 G/DL (32.0-36.0) Red Cell Distribution Width 16.2 % (11.6-14.8) H Platelet Count 444 K/UL (150-450) Mean Platelet Volume 7.1 FL (6.5-10.1) Neutrophils (%) (Auto) 44.6 % (45.0-75.0) L Lymphocytes (%) (Auto) 46.7 % (20.0-45.0) H Monocytes (%) (Auto) 6.1 % (1.0-10.0) Eosinophils (%) (Auto) 1.1 % (0.0-3.0) Basophils (%) (Auto) 1.5 % (0.0-2.0) Sodium Level 133 MMOL/L (136-145) L Potassium Level 4.0 MMOL/L (3.5-5.1) Chloride Level 98 MMOL/L (98-107) Carbon Dioxide Level 27 MMOL/L (21-32) Anion Gap 8 mmol/L (5-15) Blood Urea Nitrogen 40 mg/dL (7-18) H Creatinine 3.3 MG/DL (0.55-1.30) H Estimat Glomerular Filtration Rate 13.5 mL/min (>60) Glucose Level 151 MG/DL (74-106) H Calcium Level 8.8 MG/DL (8.5-10.1) Phosphorus Level 3.2 MG/DL (2.5-4.9) Magnesium Level 2.4 MG/DL (1.8-2.4) Total Bilirubin 0.4 MG/DL (0.2-1.0) Aspartate Amino Transf (AST/SGOT) 22 U/L (15-37) Alanine Aminotransferase (ALT/SGPT) 10 U/L (12-78) L Alkaline Phosphatase 194 U/L (46-116) H C-Reactive Protein, Quantitative 6.2 mg/dL (0.00-0.90) H Pro-B-Type Natriuretic Peptide Pending Total Protein 6.0 G/DL (6.4-8.2) L Albumin 1.6 G/DL (3.4-5.0) L Globulin 4.4 g/dL Albumin/Globulin Ratio 0.4 (1.0-2.7) L Current Medications Medications (Trade) Dose Ordered Sig/Javier Route PRN Reason Start Time Stop Time Status Last Admin Dose Admin Albuterol/ Ipratropium (Albuterol/ Ipratropium) 3 ml Q4H PRN HHN Shortness of Breath 08/25/19 09:30 08/30/19 09:29 Amlodipine Besylate (Norvasc) 5 mg BID NG 08/23/19 01:45 09/22/19 01:44 08/25/19 09:12 Atropine Sulfate (Atropine) 1 mg Q4H PRN IVP Per rx protocol 08/13/19 08:30 09/12/19 08:29 Chlorhexidine Gluconate (Nae-Hex 2%) 1 applic DAILY@1999 TOPIC 08/15/19 20:00 09/14/19 19:59 08/24/19 20:49 Dextrose (Dextrose 50%) 50 ml Q30M PRN IV Hypoglycemia 08/11/19 10:30 09/04/19 17:44 08/22/19 15:46 Diphenhydramine HCl (Benadryl) 50 mg Q4H PRN IVP Itching 08/09/19 14:30 09/08/19 14:29 08/13/19 02:39 Epoetin Thomas (Epoetin Thomas(ESRD on dialysis)) 4,000 unit -THU SUBQ 08/12/19 21:00 09/11/19 20:59 08/24/19 21:07 Fluconazole/ Sodium Chloride 100 ml @ 100 mls/hr Q24H IV 08/18/19 13:00 08/29/19 23:59 08/24/19 12:33 Hydralazine HCl (Apresoline) 10 mg Q4H PRN IV For High Blood Pressure 08/18/19 12:44 09/17/19 12:43 08/22/19 09:22 Hydralazine HCl (Apresoline) 25 mg Q6HR NG 08/23/19 06:00 09/22/19 05:59 08/25/19 06:39 Lansoprazole (Prevacid) 30 mg BID GT 08/19/19 09:00 09/18/19 08:59 08/25/19 09:12 Levothyroxine Sodium (Synthroid) 50 mcg DAILY@0630 ORAL 08/25/19 06:30 09/24/19 06:29 08/25/19 06:39 Meropenem 500 mg/ Sodium Chloride 55 ml @ 110 mls/hr Q24H IVPB 08/24/19 21:00 08/29/19 20:59 08/24/19 20:49 Metoclopramide HCl (Reglan) 5 mg Q8H PRN IVP Nausea & Vomiting 08/09/19 12:39 09/08/19 12:38 Nitroglycerin (Nitro-Bid) 1 inch Q6HR TOPIC 08/09/19 12:39 09/08/19 12:38 08/25/19 06:39 Warren Parks MD Aug 25, 2019 11:44
--- NOTE | 2019-08-25 14:45 | Nephrology Progress Note ---
Assessment/Plan Problem List: (1) ESRD (end stage renal disease) on dialysis (2) Malnutrition (3) Anemia in CKD (chronic kidney disease) (4) Hypotension (5) Thrombocytopenia (6) Sepsis Assessment: klebsiella in blood Assessment -Early sepsis with shock. -Healthcare-associated pneumonia. -Severe protein-calorie malnutrition. -Thrombocytopenia. - End-stage renal disease. - History of hypertension. - Bradycardia. - HypoThyroid Plan Was dialyzed August 22 Next dialysis August 25 Due to her overall medical condition I favor DNR and comfort care Blood pressure fluctuating, will start hydralazine via NG tube for blood pressure Magnesium and potassium supplement intravenously as needed Patient underwent PEG placement August 16 patient remains intubated on ventilator Discussed with RN Aim to wean from ventilator or consider tracheostomy Permacath was removed on August 12 Dialysis 08/11 Transfusion as needed Patient had hematemesis meds IV as possible Surveillance blood cultures tomorrow Plan to put the permacath back in on Thursday if cultures are negative keep BP and BS in check Inflammatory markers per orders Subjective ROS Limited/Unobtainable: Yes Objective Objective Last 24 Hour Vital Signs Date Time Temp Pulse Resp B/P (MAP) Pulse Ox O2 Delivery O2 Flow Rate FiO2 08/25/19 14:43 66 19 40 08/25/19 14:39 40 08/25/19 14:00 65 22 113/90 (98) 100 08/25/19 13:41 50 08/25/19 13:11 68 19 40 08/25/19 13:00 98.1 72 25 120/61 (80) 95 08/25/19 12:43 143/64 08/25/19 12:42 143/64 08/25/19 12:00 74 27 143/64 (90) 100 08/25/19 12:00 Mechanical Ventilator Mechanical Ventilator Mechanical Ventilator Mechanical Ventilator 08/25/19 12:00 81 08/25/19 12:00 40 08/25/19 11:00 69 27 141/67 (91) 98 08/25/19 10:55 59 18 40 08/25/19 10:00 62 22 133/68 (89) 96 08/25/19 09:12 61 130/59 08/25/19 09:12 63 18 40 08/25/19 09:00 57 21 130/59 (82) 100 08/25/19 08:58 56 12 40 08/25/19 08:52 100 08/25/19 08:30 40 08/25/19 08:00 57 08/25/19 08:00 97.8 59 20 119/62 (81) 100 08/25/19 08:00 Mechanical Ventilator Mechanical Ventilator Mechanical Ventilator Mechanical Ventilator 08/25/19 08:00 40 08/25/19 07:00 94 28 170/79 (109) 98 08/25/19 06:59 93 25 40 08/25/19 06:39 128/65 08/25/19 06:39 128/65 08/25/19 06:30 63 20 08/25/19 06:00 55 18 128/65 (86) 100 08/25/19 05:19 60 18 40 08/25/19 05:00 58 21 140/60 (86) 100 08/25/19 04:00 98.1 59 21 124/60 (81) 100 08/25/19 04:00 40 08/25/19 04:00 Mechanical Ventilator Mechanical Ventilator 08/25/19 03:14 83 08/25/19 03:00 61 25 140/59 (86) 100 08/25/19 02:52 62 20 40 08/25/19 02:00 58 36 139/58 (85) 100 08/25/19 01:00 58 39 145/60 (88) 100 08/25/19 00:48 56 18 40 08/25/19 00:00 98.3 59 35 135/66 (89) 100 08/25/19 00:00 Mechanical Ventilator Mechanical Ventilator 08/24/19 23:40 127/62 08/24/19 23:40 127/62 08/24/19 23:30 60 18 40 08/24/19 23:27 58 08/24/19 23:00 59 18 127/61 (83) 100 08/24/19 22:00 63 24 136/64 (88) 100 08/24/19 21:26 64 18 40 08/24/19 21:00 63 19 127/59 (81) 100 08/24/19 20:00 Mechanical Ventilator Mechanical Ventilator 08/24/19 20:00 98.9 62 21 135/65 (88) 100 08/24/19 20:00 40 08/24/19 19:30 60 19 40 08/24/19 19:29 61 08/24/19 19:00 60 25 118/58 (78) 100 08/24/19 18:00 64 21 138/57 (84) 100 08/24/19 17:19 140/67 08/24/19 17:18 64 140/67 08/24/19 17:18 140/67 08/24/19 17:06 63 18 40 08/24/19 17:00 63 19 140/67 (91) 100 08/24/19 16:00 70 08/24/19 16:00 62 19 148/70 (96) 100 08/24/19 16:00 62 08/24/19 16:00 Mechanical Ventilator Mechanical Ventilator 08/24/19 15:20 68 22 40 08/24/19 15:00 99.8 63 18 152/72 (98) 100 Intake and Output 08/24/19 08/25/19 19:00 07:00 Intake Total 620 ml 685 ml Balance 620 ml 685 ml Intake Free Water 280 ml IV Total 100 ml 55 ml Tube Feeding 420 ml 350 ml Other 100 ml # Voids 5 # Bowel Movements 4 4 Laboratory Tests 08/25/19 03:10: White Blood Count 7.3#, Red Blood Count 3.43L, Hemoglobin 10.4L, Hematocrit 31.1L, Mean Corpuscular Volume 91, Mean Corpuscular Hemoglobin 30.4, Mean Corpuscular Hemoglobin Concent 33.5, Red Cell Distribution Width 16.2H, Platelet Count 444, Mean Platelet Volume 7.1, Neutrophils (%) (Auto) 44.6L, Lymphocytes (%) (Auto) 46.7H, Monocytes (%) (Auto) 6.1, Eosinophils (%) (Auto) 1.1, Basophils (%) (Auto) 1.5, Sodium Level 133L, Potassium Level 4.0, Chloride Level 98, Carbon Dioxide Level 27, Anion Gap 8, Blood Urea Nitrogen 40H, Creatinine 3.3H, Estimat Glomerular Filtration Rate 13.5, Glucose Level 151H, Calcium Level 8.8, Phosphorus Level 3.2, Magnesium Level 2.4, Total Bilirubin 0.4, Aspartate Amino Transf (AST/SGOT) 22, Alanine Aminotransferase (ALT/SGPT) 10L, Alkaline Phosphatase 194H, C-Reactive Protein, Quantitative 6.2H, Pro-B- Type Natriuretic Peptide [Pending], Total Protein 6.0L, Albumin 1.6L, Globulin 4.4, Albumin/Globulin Ratio 0.4L Height (Feet): 5 Height (Inches): 4.00 Weight (Pounds): 110 General Appearance: no apparent distress EENT: other - Remains intubated on ventilator Cardiovascular: normal rate Respiratory/Chest: decreased breath sounds Abdomen: distended Objective no change William Blackwood MD Aug 25, 2019 14:45
--- NOTE | 2019-08-25 15:31 | Hematology/Onc Progress Note ---
Assessment/Plan Assessment/Plan # Thrombocytopenia - potential causes multifactorial, evaluate liver and viral etiologies to begin, in this case due to sepsis with septic shock also with cirrhosis and liver disease --> Hep panel and HIV ordered -> neg --> US abd to evaluate for cirrhosis and hsm ordered --> reviewed --> Peripheral smear ordered to evaluate for blasts /schistocytes --> abx and other meds have been reviewed --> ok for ppx if plt >50k w/ either heparin or lovenox --> Transfuse if Plt < 20k and fever, or if Plt < 10k without fever --> okay for permacath change once plt better--> for 08/14 --> plt trend: 43-->83-->237k-->292-->341-->315-->388 -->444 # Anemia of chronic disease due to underlying chronic medical issues, multifactorial v Gi bleed --> Anemia workup has been ordered, rule out gi bleed --> No evidence of hemolysis is noted, peripheral smear has been reviewed. --> Hgb goal >7. Transfuse prn. --> Epogen has been started --> HOLD OFF IRON ferritin is >1000 --> Medications have been reviewed --> low threshold for gi evaluation in case has occult + --> hgb 9-->6.7-->9.2 -->10.5-->10.6 -->10.7-->10-->10.5 --> blood tx: 08/11 # Early sepsis with shock. --> abx as per id, recs noted # Healthcare-associated pneumonia. --> recs reviewed --> abx: jung/micafungin-->jung # Severe protein-calorie malnutrition. --> nutritional support # End-stage renal disease --> had as renal hd --> with permacath # History of hypertension. --> per cards, now with Bradycardia. # resp failure s/p vent/trach # HypoThyroid # Ngt feedings # Dvt ppx scd's The timing of this note does not necessarily reflect the time of the patient was seen. Greatly appreciate consultation. Subjective Allergies: Coded Allergies: VANCOMYCIN (Unverified Allergy, Unknown, 08/02/19) Subjective 08/11: no bleeding or chills, labs reviewed, no major bleeding, plt less than 50k 08/12: icu, s/p blood, hgb improved to 9.2, 08/14: icu, pending consent for thora and permacath, labs reviewed 08/15: new permacath placed, no bleeding, for hd, plt much improved, started lovenox sq 08/16: ett to be adjusted, bp on high end, micafungin started, possible bronch 08/17: weaning as per pulm, no events otherwise, labs noted 08/18: no events no bleeding, remains confused on vent, for hd 08/20: icu, failed to wean, labs reviewed, jung 08/21: resting in bed, no overnight events, labs reviewed 08/22: awake, confused, restraints, no overnight events 08/23: no events, no bleeding, on ppi bid 08/24: icu, failed to wean, labs reviewed Objective Objective Current Medications Medications (Trade) Dose Ordered Sig/Javier Route PRN Reason Start Time Stop Time Status Last Admin Dose Admin Albuterol/ Ipratropium (Albuterol/ Ipratropium) 3 ml Q4H PRN HHN Shortness of Breath 08/25/19 09:30 08/30/19 09:29 Amlodipine Besylate (Norvasc) 5 mg BID NG 08/23/19 01:45 09/22/19 01:44 08/25/19 09:12 Atropine Sulfate (Atropine) 1 mg Q4H PRN IVP Per rx protocol 08/13/19 08:30 09/12/19 08:29 Chlorhexidine Gluconate (Nae-Hex 2%) 1 applic DAILY@1999 TOPIC 08/15/19 20:00 09/14/19 19:59 08/24/19 20:49 Dextrose (Dextrose 50%) 50 ml Q30M PRN IV Hypoglycemia 08/11/19 10:30 09/04/19 17:44 08/22/19 15:46 Diphenhydramine HCl (Benadryl) 50 mg Q4H PRN IVP Itching 08/09/19 14:30 09/08/19 14:29 08/13/19 02:39 Epoetin Thomas (Epoetin Thomas(ESRD on dialysis)) 4,000 unit SUBQ 08/12/19 21:00 09/11/19 20:59 08/24/19 21:07 Fluconazole/ Sodium Chloride 100 ml @ 100 mls/hr Q24H IV 08/18/19 13:00 08/29/19 23:59 08/25/19 12:43 Hydralazine HCl (Apresoline) 10 mg Q4H PRN IV For High Blood Pressure 08/18/19 12:44 09/17/19 12:43 08/22/19 09:22 Hydralazine HCl (Apresoline) 25 mg Q6HR NG 08/23/19 06:00 09/22/19 05:59 08/25/19 12:42 Lansoprazole (Prevacid) 30 mg BID GT 08/19/19 09:00 09/18/19 08:59 08/25/19 09:12 Levothyroxine Sodium (Synthroid) 50 mcg DAILY@0630 ORAL 08/25/19 06:30 09/24/19 06:29 08/25/19 06:39 Metoclopramide HCl (Reglan) 5 mg Q8H PRN IVP Nausea & Vomiting 08/09/19 12:39 09/08/19 12:38 Nitroglycerin (Nitro-Bid) 1 inch Q6HR TOPIC 08/09/19 12:39 09/08/19 12:38 08/25/19 12:43 Last 24 Hour Vital Signs Date Time Temp Pulse Resp B/P (MAP) Pulse Ox O2 Delivery O2 Flow Rate FiO2 08/25/19 15:09 60 22 123/61 (81) 100 08/25/19 15:00 71 28 166/92 (116) 100 08/25/19 14:43 66 19 40 08/25/19 14:39 40 08/25/19 14:00 65 22 113/90 (98) 100 08/25/19 13:41 50 08/25/19 13:11 68 19 40 08/25/19 13:00 98.1 72 25 120/61 (80) 95 08/25/19 12:43 143/64 08/25/19 12:42 143/64 08/25/19 12:00 74 27 143/64 (90) 100 08/25/19 12:00 Mechanical Ventilator Mechanical Ventilator Mechanical Ventilator Mechanical Ventilator 08/25/19 12:00 81 3/12/20 12:00 40 08/25/19 11:00 69 27 141/67 (91) 98 08/25/19 10:55 59 18 40 08/25/19 10:00 62 22 133/68 (89) 96 08/25/19 09:12 61 130/59 08/25/19 09:12 63 18 40 08/25/19 09:00 57 21 130/59 (82) 100 08/25/19 08:58 56 12 40 08/25/19 08:52 100 08/25/19 08:30 40 08/25/19 08:00 57 08/25/19 08:00 97.8 59 20 119/62 (81) 100 08/25/19 08:00 Mechanical Ventilator Mechanical Ventilator Mechanical Ventilator Mechanical Ventilator 08/25/19 08:00 40 08/25/19 07:00 94 28 170/79 (109) 98 08/25/19 06:59 93 25 40 08/25/19 06:39 128/65 08/25/19 06:39 128/65 08/25/19 06:30 63 20 08/25/19 06:00 55 18 128/65 (86) 100 08/25/19 05:19 60 18 40 08/25/19 05:00 58 21 140/60 (86) 100 08/25/19 04:00 98.1 59 21 124/60 (81) 100 08/25/19 04:00 40 08/25/19 04:00 Mechanical Ventilator Mechanical Ventilator 08/25/19 03:14 83 08/25/19 03:00 61 25 140/59 (86) 100 08/25/19 02:52 62 20 40 08/25/19 02:00 58 36 139/58 (85) 100 08/25/19 01:00 58 39 145/60 (88) 100 08/25/19 00:48 56 18 40 08/25/19 00:00 98.3 59 35 135/66 (89) 100 08/25/19 00:00 Mechanical Ventilator Mechanical Ventilator 08/24/19 23:40 127/62 08/24/19 23:40 127/62 08/24/19 23:30 60 18 40 08/24/19 23:27 58 08/24/19 23:00 59 18 127/61 (83) 100 08/24/19 22:00 63 24 136/64 (88) 100 08/24/19 21:26 64 18 40 08/24/19 21:00 63 19 127/59 (81) 100 08/24/19 20:00 Mechanical Ventilator Mechanical Ventilator 08/24/19 20:00 98.9 62 21 135/65 (88) 100 08/24/19 20:00 40 08/24/19 19:30 60 19 40 08/24/19 19:29 61 08/24/19 19:00 60 25 118/58 (78) 100 08/24/19 18:00 64 21 138/57 (84) 100 08/24/19 17:19 140/67 08/24/19 17:18 64 140/67 08/24/19 17:18 140/67 08/24/19 17:06 63 18 40 08/24/19 17:00 63 19 140/67 (91) 100 08/24/19 16:00 70 08/24/19 16:00 62 19 148/70 (96) 100 08/24/19 16:00 62 08/24/19 16:00 Mechanical Ventilator Mechanical Ventilator 08/24/19 15:20 68 22 40 08/24/19 15:00 99.8 63 18 152/72 (98) 100 08/24/19 14:00 66 20 141/63 (89) 100 08/24/19 13:00 61 18 142/60 (87) 100 08/24/19 12:38 63 18 40 08/24/19 12:32 143/59 08/24/19 12:32 143/59 08/24/19 12:30 64 23 133/61 (85) 100 08/24/19 12:00 70 08/24/19 12:00 61 08/24/19 12:00 99.8 61 22 135/49 (77) 100 08/24/19 12:00 Mechanical Ventilator Mechanical Ventilator 08/24/19 11:21 60 18 40 08/24/19 11:00 64 18 141/57 (85) 100 08/24/19 10:00 67 26 152/60 (90) 100 08/24/19 09:30 100 08/24/19 09:30 58 30 147/60 (89) 100 08/24/19 09:29 58 18 40 08/24/19 09:00 59 25 125/92 (103) 100 08/24/19 08:48 61 08/24/19 08:30 61 20 139/61 (87) 100 08/24/19 08:27 65 138/58 08/24/19 08:00 70 08/24/19 08:00 Mechanical Ventilator Mechanical Ventilator 08/24/19 08:00 100.0 61 30 137/62 (87) 100 08/24/19 07:11 61 18 40 08/24/19 07:00 61 25 130/63 (85) 100 08/24/19 06:30 62 24 08/24/19 06:00 62 24 143/70 (94) 100 08/24/19 05:59 148/83 08/24/19 05:59 148/83 08/24/19 05:00 72 23 159/65 (96) 100 08/24/19 04:55 72 18 70 08/24/19 04:00 61 08/24/19 04:00 98.0 64 23 146/64 (91) 100 08/24/19 04:00 Mechanical Ventilator Mechanical Ventilator 08/24/19 04:00 70 08/24/19 03:41 63 18 70 08/24/19 03:00 63 22 148/58 (88) 100 08/24/19 02:00 63 24 145/64 (91) 100 08/24/19 01:19 77 18 70 08/24/19 01:00 73 21 147/99 (115) 99 08/24/19 00:05 153/67 08/24/19 00:04 153/67 08/24/19 00:00 99.5 68 23 153/67 (95) 100 08/24/19 00:00 70 08/24/19 00:00 Mechanical Ventilator Mechanical Ventilator 08/24/19 00:00 70 08/23/19 23:41 68 18 70 08/23/19 23:00 69 26 157/68 (97) 100 08/23/19 22:00 68 22 150/76 (100) 100 08/23/19 21:16 67 18 70 08/23/19 21:00 68 21 146/79 (101) 99 08/23/19 20:00 Mechanical Ventilator Mechanical Ventilator 08/23/19 20:00 70 08/23/19 20:00 99.0 69 18 160/73 (102) 100 08/23/19 20:00 72 08/23/19 19:36 79 18 70 08/23/19 19:00 68 22 155/71 (99) 100 08/23/19 18:00 73 18 146/81 (102) 100 08/23/19 17:06 96 22 70 08/23/19 17:00 103 18 136/95 (109) 100 08/23/19 16:00 93 08/23/19 16:00 Mechanical Ventilator Mechanical Ventilator 08/23/19 16:00 99.4 78 17 164/82 (109) 100 08/23/19 16:00 70 Intake and Output 08/24/19 08/25/19 19:00 07:00 Intake Total 620 ml 685 ml Balance 620 ml 685 ml Intake Free Water 280 ml IV Total 100 ml 55 ml Tube Feeding 420 ml 350 ml Other 100 ml # Voids 5 # Bowel Movements 4 4 Labs Test 08/23/19 09:05 08/23/19 09:56 08/24/19 06:10 08/25/19 03:10 White Blood Count 6.1 K/UL (4.8-10.8) 4.7 K/UL (4.8-10.8) 7.3 K/UL (4.8-10.8) Red Blood Count 3.45 M/UL (4.20-5.40) 2.70 M/UL (4.20-5.40) 3.43 M/UL (4.20-5.40) Hemoglobin 10.5 G/DL (12.0-16.0) 8.3 G/DL (12.0-16.0) 10.4 G/DL (12.0-16.0) Hematocrit 31.5 % (37.0-47.0) 24.6 % (37.0-47.0) 31.1 % (37.0-47.0) Mean Corpuscular Volume 91 FL (80-99) 91 FL (80-99) 91 FL (80-99) Mean Corpuscular Hemoglobin 30.4 PG (27.0-31.0) 30.8 PG (27.0-31.0) 30.4 PG (27.0-31.0) Mean Corpuscular Hemoglobin Concent 33.3 G/DL (32.0-36.0) 33.8 G/DL (32.0-36.0) 33.5 G/DL (32.0-36.0) Red Cell Distribution Width 17.6 % (11.6-14.8) 17.0 % (11.6-14.8) 16.2 % (11.6-14.8) Platelet Count 388 K/UL (150-450) 331 K/UL (150-450) 444 K/UL (150-450) Mean Platelet Volume 7.1 FL (6.5-10.1) 7.1 FL (6.5-10.1) 7.1 FL (6.5-10.1) Neutrophils (%) (Auto) 64.8 % (45.0-75.0) 55.5 % (45.0-75.0) 44.6 % (45.0-75.0) Lymphocytes (%) (Auto) 27.4 % (20.0-45.0) 33.6 % (20.0-45.0) 46.7 % (20.0-45.0) Monocytes (%) (Auto) 4.6 % (1.0-10.0) 7.8 % (1.0-10.0) 6.1 % (1.0-10.0) Eosinophils (%) (Auto) 1.4 % (0.0-3.0) 0.9 % (0.0-3.0) 1.1 % (0.0-3.0) Basophils (%) (Auto) 1.7 % (0.0-2.0) 2.3 % (0.0-2.0) 1.5 % (0.0-2.0) Sodium Level 136 MMOL/L (136-145) 135 MMOL/L (136-145) 133 MMOL/L (136-145) Potassium Level 4.4 MMOL/L (3.5-5.1) 3.7 MMOL/L (3.5-5.1) 4.0 MMOL/L (3.5-5.1) Chloride Level 101 MMOL/L (98-107) 100 MMOL/L (98-107) 98 MMOL/L (98-107) Carbon Dioxide Level 27 MMOL/L (21-32) 29 MMOL/L (21-32) 27 MMOL/L (21-32) Anion Gap 8 mmol/L (5-15) 7 mmol/L (5-15) 8 mmol/L (5-15) Blood Urea Nitrogen 45 mg/dL (7-18) 30 mg/dL (7-18) 40 mg/dL (7-18) Creatinine 3.6 MG/DL (0.55-1.30) 2.9 MG/DL (0.55-1.30) 3.3 MG/DL (0.55-1.30) Estimat Glomerular Filtration Rate 12.2 mL/min (>60) 15.7 mL/min (>60) 13.5 mL/min (>60) Glucose Level 132 MG/DL (74-106) 115 MG/DL (74-106) 151 MG/DL (74-106) Calcium Level 8.6 MG/DL (8.5-10.1) 8.1 MG/DL (8.5-10.1) 8.8 MG/DL (8.5-10.1) Thyroid Stimulating Hormone (TSH) 7.761 uiU/mL (0.358-3.740) Free Thyroxine 1.54 NG/DL (0.76-1.46) Arterial Blood pH 7.524 (7.350-7.450) Arterial Blood Partial Pressure CO2 33.3 mmHg (35.0-45.0) Arterial Blood Partial Pressure O2 130.4 mmHg (75.0-100.0) Arterial Blood HCO3 26.8 mmol/L (22.0-26.0) Arterial Blood Oxygen Saturation 98.3 % (95-100) Arterial Blood Base Excess 4.2 (-2-2) [place] Test Positive Phosphorus Level 2.5 MG/DL (2.5-4.9) 3.2 MG/DL (2.5-4.9) Magnesium Level 2.0 MG/DL (1.8-2.4) 2.4 MG/DL (1.8-2.4) Total Bilirubin 0.4 MG/DL (0.2-1.0) 0.4 MG/DL (0.2-1.0) Aspartate Amino Transf (AST/SGOT) 18 U/L (15-37) 22 U/L (15-37) Alanine Aminotransferase (ALT/SGPT) < 6 U/L (12-78) 10 U/L (12-78) Alkaline Phosphatase 132 U/L (46-116) 194 U/L (46-116) C-Reactive Protein, Quantitative 5.3 mg/dL (0.00-0.90) 6.2 mg/dL (0.00-0.90) Total Protein 5.1 G/DL (6.4-8.2) 6.0 G/DL (6.4-8.2) Albumin 1.5 G/DL (3.4-5.0) 1.6 G/DL (3.4-5.0) Globulin 3.6 g/dL 4.4 g/dL Albumin/Globulin Ratio 0.4 (1.0-2.7) 0.4 (1.0-2.7) Height (Feet): 5 Height (Inches): 4.00 Weight (Pounds): 110 Objective gen: nad pulm: on trach+ / vent cv: rrr, no gmr abd: sfot, nt, nd ++ gt ext: no cce Gio Rob MD Aug 25, 2019 15:31
--- NOTE | 2019-08-25 15:34 | Diagnostic Imaging Report ---
Indication: Shortness of breath, abnormal chest radiograph Technique: Grayscale images of the left hemithorax Comparison: Reference made to left chest radiograph dated 08/24/2019 Findings: Grayscale images demonstrate a moderate-sized left pleural effusion. Atelectatic lung is seen within the pleural fluid Impression: Moderate left pleural effusion
[2019-08-25] MEDS ORDERED: NS 275ml ONE (15:41)
[2019-08-25] MEDS ORDERED: Tubing IV Secondary IV ONE (15:41)
--- NOTE | 2019-08-25 17:07 | General Progress Note ---
Assessment/Plan Problem List: (1) Failure to thrive (0-17) ICD Codes: R62.51 - Failure to thrive (0-17) SNOMED: 409332395 (2) Hypertensive kidney disease ICD Codes: I12.9 - Hypertensive chronic kidney disease with stage 1 through stage 4 chronic kidney disease, or unspecified chronic kidney disease SNOMED: 65353924 (3) Pneumonia ICD Codes: J18.9 - Pneumonia, unspecified organism SNOMED: 757929086 Qualifiers: Qualified Codes: J18.9 - Pneumonia, unspecified organism (4) ESRD (end stage renal disease) ICD Codes: N18.6 - End stage renal disease SNOMED: 87303770 (5) Septic arthritis ICD Codes: M00.9 - Pyogenic arthritis, unspecified SNOMED: 145930816 (6) Thrombocytopenia ICD Codes: D69.6 - Thrombocytopenia, unspecified SNOMED: 119528387 (7) Hypotension ICD Codes: I95.9 - Hypotension, unspecified SNOMED: 99846094 Qualifiers: Qualified Codes: I95.3 - Hypotension of hemodialysis (8) Malnutrition ICD Codes: E46 - Unspecified protein-calorie malnutrition SNOMED: 21738576 Status: stable, not improved, unchanged, deteriorating Assessment/Plan: cont resp care chest pt/suctioning resp rx tap effusion cont weaning- try simv No plans for trach. resp/volume status needs to be optimized as much as possible monitor plts iv PPI iv abx HD bp rx critical and guarded tube feeds per gi will d/w family trach vs terminal extubation Subjective ROS Limited/Unobtainable: No Constitutional: Reports: malaise, weakness HEENT: Reports: no symptoms Cardiovascular: Reports: no symptoms Respiratory: Reports: cough, shortness of breath, sputum Gastrointestinal/Abdominal: Reports: no symptoms Genitourinary: Reports: no symptoms Neurologic/Psychiatric: Reports: anxiety Endocrine: Reports: no symptoms Hematologic/Lymphatic: Reports: no symptoms Allergies: Coded Allergies: VANCOMYCIN (Unverified Allergy, Unknown, 08/02/19) All Systems: reviewed and negative except above Subjective no events. on the vent. remains alert and awake. no fevers. alert. minimal congestion/secretions. cxr with mod pleural effusion. not able to wean yet. d/w . trach recommended Objective Last 24 Hour Vital Signs Date Time Temp Pulse Resp B/P (MAP) Pulse Ox O2 Delivery O2 Flow Rate FiO2 08/25/19 17:05 60 116/55 08/25/19 17:05 116/55 08/25/19 17:05 116/55 08/25/19 16:50 61 18 40 08/25/19 16:00 63 08/25/19 16:00 97.9 78 31 137/59 (85) 100 08/25/19 16:00 Mechanical Ventilator Mechanical Ventilator Mechanical Ventilator Mechanical Ventilator 08/25/19 15:09 60 22 123/61 (81) 100 08/25/19 15:00 71 28 166/92 (116) 100 08/25/19 14:43 66 19 40 08/25/19 14:39 40 08/25/19 14:00 65 22 113/90 (98) 100 08/25/19 13:41 50 08/25/19 13:11 68 19 40 08/25/19 13:00 98.1 72 25 120/61 (80) 95 08/25/19 12:43 143/64 08/25/19 12:42 143/64 08/25/19 12:00 74 27 143/64 (90) 100 08/25/19 12:00 Mechanical Ventilator Mechanical Ventilator Mechanical Ventilator Mechanical Ventilator 08/25/19 12:00 81 08/25/19 12:00 40 08/25/19 11:00 69 27 141/67 (91) 98 08/25/19 10:55 59 18 40 08/25/19 10:00 62 22 133/68 (89) 96 08/25/19 09:12 61 130/59 08/25/19 09:12 63 18 40 08/25/19 09:00 57 21 130/59 (82) 100 08/25/19 08:58 56 12 40 08/25/19 08:52 100 08/25/19 08:30 40 08/25/19 08:00 57 08/25/19 08:00 97.8 59 20 119/62 (81) 100 08/25/19 08:00 Mechanical Ventilator Mechanical Ventilator Mechanical Ventilator Mechanical Ventilator 08/25/19 08:00 40 08/25/19 07:00 94 28 170/79 (109) 98 08/25/19 06:59 93 25 40 08/25/19 06:39 128/65 08/25/19 06:39 128/65 08/25/19 06:30 63 20 08/25/19 06:00 55 18 128/65 (86) 100 08/25/19 05:19 60 18 40 08/25/19 05:00 58 21 140/60 (86) 100 08/25/19 04:00 98.1 59 21 124/60 (81) 100 08/25/19 04:00 40 08/25/19 04:00 Mechanical Ventilator Mechanical Ventilator 08/25/19 03:14 83 08/25/19 03:00 61 25 140/59 (86) 100 08/25/19 02:52 62 20 40 08/25/19 02:00 58 36 139/58 (85) 100 08/25/19 01:00 58 39 145/60 (88) 100 08/25/19 00:48 56 18 40 08/25/19 00:00 98.3 59 35 135/66 (89) 100 08/25/19 00:00 Mechanical Ventilator Mechanical Ventilator 08/24/19 23:40 127/62 08/24/19 23:40 127/62 08/24/19 23:30 60 18 40 08/24/19 23:27 58 08/24/19 23:00 59 18 127/61 (83) 100 08/24/19 22:00 63 24 136/64 (88) 100 08/24/19 21:26 64 18 40 08/24/19 21:00 63 19 127/59 (81) 100 08/24/19 20:00 Mechanical Ventilator Mechanical Ventilator 08/24/19 20:00 98.9 62 21 135/65 (88) 100 08/24/19 20:00 40 08/24/19 19:30 60 19 40 08/24/19 19:29 61 08/24/19 19:00 60 25 118/58 (78) 100 08/24/19 18:00 64 21 138/57 (84) 100 08/24/19 17:19 140/67 08/24/19 17:18 64 140/67 08/24/19 17:18 140/67 Intake and Output 08/24/19 08/25/19 19:00 07:00 Intake Total 620 ml 685 ml Balance 620 ml 685 ml Intake Free Water 280 ml IV Total 100 ml 55 ml Tube Feeding 420 ml 350 ml Other 100 ml # Voids 5 # Bowel Movements 4 4 Laboratory Tests 08/25/19 03:10: White Blood Count 7.3#, Red Blood Count 3.43L, Hemoglobin 10.4L, Hematocrit 31.1L, Mean Corpuscular Volume 91, Mean Corpuscular Hemoglobin 30.4, Mean Corpuscular Hemoglobin Concent 33.5, Red Cell Distribution Width 16.2H, Platelet Count 444, Mean Platelet Volume 7.1, Neutrophils (%) (Auto) 44.6L, Lymphocytes (%) (Auto) 46.7H, Monocytes (%) (Auto) 6.1, Eosinophils (%) (Auto) 1.1, Basophils (%) (Auto) 1.5, Sodium Level 133L, Potassium Level 4.0, Chloride Level 98, Carbon Dioxide Level 27, Anion Gap 8, Blood Urea Nitrogen 40H, Creatinine 3.3H, Estimat Glomerular Filtration Rate 13.5, Glucose Level 151H, Calcium Level 8.8, Phosphorus Level 3.2, Magnesium Level 2.4, Total Bilirubin 0.4, Aspartate Amino Transf (AST/SGOT) 22, Alanine Aminotransferase (ALT/SGPT) 10L, Alkaline Phosphatase 194H, C-Reactive Protein, Quantitative 6.2H, Pro-B- Type Natriuretic Peptide [Pending], Total Protein 6.0L, Albumin 1.6L, Globulin 4.4, Albumin/Globulin Ratio 0.4L Height (Feet): 5 Height (Inches): 4.00 Weight (Pounds): 110 Objective General Appearance: WD/WN, awake/moaning. orally intubated Neck: supple Cardiovascular: normal rate Respiratory/Chest: rhonchi - bilaterally Abdomen: normal bowel sounds, non tender, soft, no organomegaly Edema: no edema noted Arm (L), no edema noted Arm (R), no edema noted Leg (L), no edema noted Leg (R), no edema noted Pedal (L), no edema noted Pedal (R), no edema noted Generalized Neurologic: disoriented, aphasia Nate Beltran MD Aug 25, 2019 17:07
--- NOTE | 2019-08-25 19:31 | Surgery Progress Note ---
Surgery Progress Note Subjective Procedure Performed Right Femoral Temporary Hemodialysis catheter Insertion Additional Comments Chest also noted left pleural effusion Difficult weaning off vent Ill-appearing Objective Last 24 Hour Vital Signs Date Time Temp Pulse Resp B/P (MAP) Pulse Ox O2 Delivery O2 Flow Rate FiO2 08/25/19 19:00 60 20 117/58 (77) 100 08/25/19 18:00 60 37 118/57 (77) 100 08/25/19 17:05 60 116/55 08/25/19 17:05 116/55 08/25/19 17:05 116/55 08/25/19 17:00 61 18 116/55 (75) 100 08/25/19 16:50 61 18 40 08/25/19 16:00 63 08/25/19 16:00 97.9 78 31 137/59 (85) 100 08/25/19 16:00 Mechanical Ventilator Mechanical Ventilator Mechanical Ventilator Mechanical Ventilator 08/25/19 15:09 60 22 123/61 (81) 100 08/25/19 15:00 71 28 166/92 (116) 100 08/25/19 14:43 66 19 40 08/25/19 14:39 40 08/25/19 14:00 65 22 113/90 (98) 100 08/25/19 13:41 50 08/25/19 13:11 68 19 40 08/25/19 13:00 98.1 72 25 120/61 (80) 95 08/25/19 12:43 143/64 08/25/19 12:42 143/64 08/25/19 12:00 74 27 143/64 (90) 100 08/25/19 12:00 Mechanical Ventilator Mechanical Ventilator Mechanical Ventilator Mechanical Ventilator 08/25/19 12:00 81 08/25/19 12:00 40 08/25/19 11:00 69 27 141/67 (91) 98 08/25/19 10:55 59 18 40 08/25/19 10:00 62 22 133/68 (89) 96 08/25/19 09:12 61 130/59 08/25/19 09:12 63 18 40 08/25/19 09:00 57 21 130/59 (82) 100 08/25/19 08:58 56 12 40 08/25/19 08:52 100 08/25/19 08:30 40 08/25/19 08:00 57 08/25/19 08:00 97.8 59 20 119/62 (81) 100 08/25/19 08:00 Mechanical Ventilator Mechanical Ventilator Mechanical Ventilator Mechanical Ventilator 08/25/19 08:00 40 08/25/19 07:00 94 28 170/79 (109) 98 08/25/19 06:59 93 25 40 08/25/19 06:39 128/65 08/25/19 06:39 128/65 08/25/19 06:30 63 20 08/25/19 06:00 55 18 128/65 (86) 100 08/25/19 05:19 60 18 40 08/25/19 05:00 58 21 140/60 (86) 100 08/25/19 04:00 98.1 59 21 124/60 (81) 100 08/25/19 04:00 40 08/25/19 04:00 Mechanical Ventilator Mechanical Ventilator 08/25/19 03:14 83 08/25/19 03:00 61 25 140/59 (86) 100 08/25/19 02:52 62 20 40 08/25/19 02:00 58 36 139/58 (85) 100 08/25/19 01:00 58 39 145/60 (88) 100 08/25/19 00:48 56 18 40 08/25/19 00:00 98.3 59 35 135/66 (89) 100 08/25/19 00:00 Mechanical Ventilator Mechanical Ventilator 08/24/19 23:40 127/62 08/24/19 23:40 127/62 08/24/19 23:30 60 18 40 08/24/19 23:27 58 08/24/19 23:00 59 18 127/61 (83) 100 08/24/19 22:00 63 24 136/64 (88) 100 08/24/19 21:26 64 18 40 08/24/19 21:00 63 19 127/59 (81) 100 08/24/19 20:00 Mechanical Ventilator Mechanical Ventilator 08/24/19 20:00 98.9 62 21 135/65 (88) 100 08/24/19 20:00 40 I&O Intake and Output 08/24/19 08/25/19 19:00 07:00 Intake Total 620 ml 685 ml Balance 620 ml 685 ml Intake Free Water 280 ml IV Total 100 ml 55 ml Tube Feeding 420 ml 350 ml Other 100 ml # Voids 5 # Bowel Movements 4 4 Dressing: other Wound: other Drains: other Cardiovascular: RSR Respiratory: decreased breath sounds Abdomen: soft, present bowel sounds Extremities: no cyanosis Laboratory Tests Test 08/25/19 03:10 White Blood Count 7.3 K/UL (4.8-10.8) # Red Blood Count 3.43 M/UL (4.20-5.40) L Hemoglobin 10.4 G/DL (12.0-16.0) L Hematocrit 31.1 % (37.0-47.0) L Mean Corpuscular Volume 91 FL (80-99) Mean Corpuscular Hemoglobin 30.4 PG (27.0-31.0) Mean Corpuscular Hemoglobin Concent 33.5 G/DL (32.0-36.0) Red Cell Distribution Width 16.2 % (11.6-14.8) H Platelet Count 444 K/UL (150-450) Mean Platelet Volume 7.1 FL (6.5-10.1) Neutrophils (%) (Auto) 44.6 % (45.0-75.0) L Lymphocytes (%) (Auto) 46.7 % (20.0-45.0) H Monocytes (%) (Auto) 6.1 % (1.0-10.0) Eosinophils (%) (Auto) 1.1 % (0.0-3.0) Basophils (%) (Auto) 1.5 % (0.0-2.0) Sodium Level 133 MMOL/L (136-145) L Potassium Level 4.0 MMOL/L (3.5-5.1) Chloride Level 98 MMOL/L (98-107) Carbon Dioxide Level 27 MMOL/L (21-32) Anion Gap 8 mmol/L (5-15) Blood Urea Nitrogen 40 mg/dL (7-18) H Creatinine 3.3 MG/DL (0.55-1.30) H Estimat Glomerular Filtration Rate 13.5 mL/min (>60) Glucose Level 151 MG/DL (74-106) H Calcium Level 8.8 MG/DL (8.5-10.1) Phosphorus Level 3.2 MG/DL (2.5-4.9) Magnesium Level 2.4 MG/DL (1.8-2.4) Total Bilirubin 0.4 MG/DL (0.2-1.0) Aspartate Amino Transf (AST/SGOT) 22 U/L (15-37) Alanine Aminotransferase (ALT/SGPT) 10 U/L (12-78) L Alkaline Phosphatase 194 U/L (46-116) H C-Reactive Protein, Quantitative 6.2 mg/dL (0.00-0.90) H Pro-B-Type Natriuretic Peptide > 88900 pg/mL (0-125) H Total Protein 6.0 G/DL (6.4-8.2) L Albumin 1.6 G/DL (3.4-5.0) L Globulin 4.4 g/dL Albumin/Globulin Ratio 0.4 (1.0-2.7) L Assessment Post-op Diagnosis same Plan Problems: (1) Malnutrition Assessment & Plan: DAILY ESTIMATED NEEDS: Needs based on ESRD+ HD, underweight, wound/ 39.5kg 35-40 kcals/kg 3078-1033 total kcals 1.25-1.8 g protein/kg 49-71 g total protein 20-22 mL/kg 790-869 total fluid mLs NUTRITION DIAGNOSIS: * Increased kcal and protein needs r/t underweight status, HD needs, wuond healing as evidenced by pt is underweight per guidelines, ESRD, on HD, admitted non-blanching erythema wounds @ BL heels and sacrum * Swallowing difficulty R/T dysphagia as evidenced by CLINICAL BUSINESS MANAGER recommends temporary nonoral feeding at this time, s/p NGT insertion, on NGT feeding-> now s/p self removal, NPO. CURRENT TF:NPO PO DIET RECOMMENDATIONS: WHEN SAFE FOR ORAL DIET -> renal/ texture per CLINICAL BUSINESS MANAGER ENTERAL NUTRITION RECOMMENDATIONS: W/ GI access: Nepro @ 35ml/hr x 22 hrs to provide 770ml, 1386kcal, 62g prot, 560ml free water * W/ GI access, resume TF on Nepro * Initiate Nepro @ 15ml/hr x 6 hrs, advance 10ml q 4-6 hrs as tolerated to goal rate. * Hold 1 hour before and after Synthroid med * HOB over 30 degrees/ water flush per MD. ADDITIONAL RECOMMENDATIONS: 1) Calibrated bed scale wt for accurate CBW -> daily wt monitoring Per HD record: dry wt on 07/30=39.5kg (87lbs) 2) Wound care: (W/ GI access) add Nephorivte x 1 + Balta BID 3) Monitor NPO status: without GI access at this time, s/p pulling out NGT 4) Monitor for hypoglycemia while NPO 5) Monitor for continuity of HD (2) Septic arthritis Assessment & Plan: Pt presented on admission with generalized scaly rash . pt noted to be restless and scratching at skin. Bleeding from oral mucosa noted. Joint deformity noted to R shoulder. Surgical incision approximated with 11 sutures. Erythema but no exudate,or elevation in skin temp at site of incision. Historical incision R hip that is tunneled.Small amt seropurulent exudate noted. Periwound is erythematous,but no elevation in skin temp noted. No odor noted. Non-blanching erythema noted to sacrum. Perianal area is erythematous and excoriated. L heel is boggy with non-blanching erythema. R heel is soft with non-blanching erythema. No evidence of skin breakdown to all other bony prominences. Tx.plan: Cover R shoulder with Drsg and change daily and prn. Cleanse R hip wound with Saline. Apply Therahoney.Apply Cavilon Skin Barrier periwound. Cover with Optifoam drsg. Change every 3 days and prn. Apply Moisture Barrier Paste to perianal area and buttocks. Cover Sacrum with Optifoam drsg. Change every 3 days and prn. Apply Cavilon Skin Barrier to both heels. Cover each heel with Optifoam drsg. Change every 7 days and prn. APM/ELVIA Mattress overlay. Reposition at least every 2hours or as tolerated. Off-load heels with pillow. HD cath necessary HD as renal likely will need intubation (3) Wound, open, hip or thigh with complication Assessment & Plan: slow healing will need nutritional optimization difficult ng tube peg when stable sutures removed from right shoulder comfortable wean vent may need trach (4) Abscess of right hip (5) possible septic arthritis Additional Comments Plan for discussion with family and possible trach versus terminal extubation patient is very ill-appearing not doing well prognosis guarded Camilo James Aug 25, 2019 19:30
[2019-08-25] MEDS: Dyna-Hex 2% Top Sol 2oz TOPIC SCH (20:34)
--- NOTE | 2019-08-25 23:45 | Progress Note ---
DATE: 08/25/2019 SUBJECTIVE: The patient's condition remains critical. Prognosis guarded. She is in the intensive care unit, intubated, and mechanically ventilated. Requiring hemodialysis with ultrafiltration per usual scheduling. Monitored rhythm, sinus and sinus bradycardia. OBJECTIVE: VITAL SIGNS: Blood pressure 116/55, pulse 60, respirations 18, and afebrile. LUNGS: Bilateral rhonchi. CARDIAC: Regular rhythm and rate. Normal S1, S2. ABDOMEN: Soft. G-tube intact. EXTREMITIES: Trace edema. NEUROLOGIC: Alert and responsive. IMPRESSION: 1. Respiratory failure. 2. Recovered shock due to sepsis. 3. End-stage renal disease. 4. Hypertensive heart disease. 5. Sinus node disease with bradycardia improved. 6. Hypothyroidism status post on intravenous replacement therapy. 7. History of septic arthritis of right shoulder. 8. Pleural effusions. 9. Acute on chronic diastolic congestive heart failure. PLAN: 1. Consideration for thoracentesis. 2. Continuation of hemodialysis with ultrafiltration. 3. Titrating antihypertensives. 4. No role for pacemaker. 5. Continue thyroid replacement. 6. Tracheostomy to be considered. 7. Interim weaning efforts ongoing. 8. Avoid tighter blood pressure control at this time. 9. P.r.n. therapy for significant blood pressure spikes. Abel Stubbs M.D. DR: ALICIA JOB#: [id number] CC:
[2019-08-26] VITALS (23 sets, daily range): BP systolic 116–151; BP diastolic 54–127
[2019-08-26] MEDS: Nitroglycerin 2% oint pkt TOPIC SCH ×4 (00:03→18:43)
[2019-08-26] MEDS: HydrALAZINE 25mg tab NG SCH ×4 (00:03→18:44)
--- NOTE | 2019-08-26 07:58 | Nephrology Progress Note ---
Assessment/Plan Problem List: (1) ESRD (end stage renal disease) on dialysis (2) Malnutrition (3) Anemia in CKD (chronic kidney disease) (4) Hypotension (5) Thrombocytopenia (6) Sepsis Assessment: klebsiella in blood Assessment -Early sepsis with shock. -Healthcare-associated pneumonia. -Severe protein-calorie malnutrition. -Thrombocytopenia. - End-stage renal disease. - History of hypertension. - Bradycardia. - HypoThyroid Plan Waiting for today's labs Waiting for family's decision regarding the change of CODE STATUS Was dialyzed August 22 Next dialysis August 25 Due to her overall medical condition I favor DNR and comfort care Blood pressure fluctuating, will start hydralazine via NG tube for blood pressure Magnesium and potassium supplement intravenously as needed Patient underwent PEG placement August 16 patient remains intubated on ventilator Discussed with RN Aim to wean from ventilator or consider tracheostomy Permacath was removed on August 12 Dialysis 08/11 Transfusion as needed Patient had hematemesis meds IV as possible Surveillance blood cultures tomorrow Plan to put the permacath back in on Thursday if cultures are negative keep BP and BS in check Inflammatory markers per orders Subjective ROS Limited/Unobtainable: Yes Objective Objective Last 24 Hour Vital Signs Date Time Temp Pulse Resp B/P (MAP) Pulse Ox O2 Delivery O2 Flow Rate FiO2 08/26/19 07:00 58 19 128/65 (86) 100 08/26/19 06:57 64 18 40 08/26/19 06:30 66 20 08/26/19 06:00 60 21 128/63 (84) 100 08/26/19 05:44 142/70 08/26/19 05:44 142/70 08/26/19 05:05 67 18 40 08/26/19 05:00 65 24 142/70 (94) 97 08/26/19 04:00 40 08/26/19 04:00 Mechanical Ventilator Mechanical Ventilator Mechanical Ventilator Mechanical Ventilator 08/26/19 04:00 97.9 61 18 135/69 (91) 100 08/26/19 03:15 76 08/26/19 03:05 66 19 40 08/26/19 03:00 62 18 124/62 (82) 100 08/26/19 02:00 71 19 148/83 (104) 99 08/26/19 01:30 67 18 40 08/26/19 01:00 68 21 127/64 (85) 100 08/26/19 00:03 129/66 08/26/19 00:03 129/66 08/26/19 00:00 97.8 66 22 129/66 (87) 100 08/26/19 00:00 40 08/26/19 00:00 Mechanical Ventilator Mechanical Ventilator Mechanical Ventilator Mechanical Ventilator 08/25/19 23:30 72 18 40 08/25/19 23:18 66 08/25/19 23:00 75 20 141/73 (95) 100 08/25/19 22:00 71 21 119/64 (82) 100 08/25/19 21:14 74 19 40 08/25/19 21:00 64 18 119/64 (82) 100 08/25/19 20:00 Mechanical Ventilator Mechanical Ventilator Mechanical Ventilator Mechanical Ventilator 08/25/19 20:00 97.8 61 18 109/59 (76) 100 08/25/19 20:00 40 08/25/19 19:43 61 08/25/19 19:30 61 18 40 08/25/19 19:00 60 20 117/58 (77) 100 08/25/19 18:00 60 37 118/57 (77) 100 08/25/19 17:05 60 116/55 08/25/19 17:05 116/55 08/25/19 17:05 116/55 08/25/19 17:00 61 18 116/55 (75) 100 08/25/19 16:50 61 18 40 08/25/19 16:00 63 08/25/19 16:00 97.9 78 31 137/59 (85) 100 08/25/19 16:00 Mechanical Ventilator Mechanical Ventilator Mechanical Ventilator Mechanical Ventilator 08/25/19 15:09 60 22 123/61 (81) 100 08/25/19 15:00 71 28 166/92 (116) 100 08/25/19 14:43 66 19 40 08/25/19 14:39 40 08/25/19 14:00 65 22 113/90 (98) 100 08/25/19 13:41 50 08/25/19 13:11 68 19 40 08/25/19 13:00 98.1 72 25 120/61 (80) 95 08/25/19 12:43 143/64 08/25/19 12:42 143/64 08/25/19 12:00 74 27 143/64 (90) 100 08/25/19 12:00 Mechanical Ventilator Mechanical Ventilator Mechanical Ventilator Mechanical Ventilator 08/25/19 12:00 81 08/25/19 12:00 40 08/25/19 11:00 69 27 141/67 (91) 98 08/25/19 10:55 59 18 40 08/25/19 10:00 62 22 133/68 (89) 96 08/25/19 09:12 61 130/59 08/25/19 09:12 63 18 40 08/25/19 09:00 57 21 130/59 (82) 100 08/25/19 08:58 56 12 40 08/25/19 08:52 100 08/25/19 08:30 40 08/25/19 08:00 57 08/25/19 08:00 97.8 59 20 119/62 (81) 100 08/25/19 08:00 Mechanical Ventilator Mechanical Ventilator Mechanical Ventilator Mechanical Ventilator 08/25/19 08:00 40 Intake and Output 08/25/19 08/26/19 19:00 07:00 Intake Total 620 ml 275 ml Balance 620 ml 275 ml Intake Free Water 100 ml 50 ml IV Total 100 ml Tube Feeding 420 ml 175 ml Other 50 ml # Voids 5 2 # Bowel Movements 3 2 No labs available yet today Height (Feet): 5 Height (Inches): 4.00 Weight (Pounds): 110 General Appearance: no apparent distress, lethargic EENT: other - Remains intubated on ventilator Cardiovascular: normal rate, bradycardia Respiratory/Chest: decreased breath sounds Abdomen: soft Objective no change William Blackwood MD Aug 26, 2019 07:58
--- NOTE | 2019-08-26 08:10 | Hematology/Onc Progress Note ---
Assessment/Plan Assessment/Plan # Thrombocytopenia - potential causes multifactorial, evaluate liver and viral etiologies to begin, in this case due to sepsis with septic shock also with cirrhosis and liver disease --> Hep panel and HIV ordered -> neg --> US abd to evaluate for cirrhosis and hsm ordered --> reviewed --> Peripheral smear ordered to evaluate for blasts /schistocytes --> abx and other meds have been reviewed --> ok for ppx if plt >50k w/ either heparin or lovenox --> Transfuse if Plt < 20k and fever, or if Plt < 10k without fever --> okay for permacath change once plt better--> for 08/14 --> plt trend: 43-->83-->237k-->292-->341-->315-->388 -->444 # Anemia of chronic disease due to underlying chronic medical issues, multifactorial v Gi bleed --> Anemia workup has been ordered, rule out gi bleed --> No evidence of hemolysis is noted, peripheral smear has been reviewed. --> Hgb goal >7. Transfuse prn. --> Epogen has been started --> HOLD OFF IRON ferritin is >1000 --> Medications have been reviewed --> low threshold for gi evaluation in case has occult + --> hgb 9-->6.7-->9.2 -->10.5-->10.6 -->10.7-->10-->10.5 --> blood tx: 08/11 # Early sepsis with shock. --> abx as per id, recs noted # Healthcare-associated pneumonia. --> recs reviewed --> abx: jung/micafungin-->jung --> 08/24 us chest: moderate left pleural effusion # Severe protein-calorie malnutrition. --> nutritional support # End-stage renal disease --> had as renal hd --> with permacath # History of hypertension. --> per cards, now with Bradycardia. # resp failure s/p vent/trach # HypoThyroid # Ngt feedings # Dvt ppx scd's The timing of this note does not necessarily reflect the time of the patient was seen. Greatly appreciate consultation. Subjective Allergies: Coded Allergies: VANCOMYCIN (Unverified Allergy, Unknown, 2/18/20) Subjective 08/11: no bleeding or chills, labs reviewed, no major bleeding, plt less than 50k 08/12: icu, s/p blood, hgb improved to 9.2, 08/14: icu, pending consent for thora and permacath, labs reviewed 08/15: new permacath placed, no bleeding, for hd, plt much improved, started lovenox sq 08/16: ett to be adjusted, bp on high end, micafungin started, possible bronch 08/17: weaning as per pulm, no events otherwise, labs noted 08/18: no events no bleeding, remains confused on vent, for hd 08/20: icu, failed to wean, labs reviewed, jung 08/21: resting in bed, no overnight events, labs reviewed 08/22: awake, confused, restraints, no overnight events 08/23: no events, no bleeding, on ppi bid 08/24: icu, failed to wean, labs reviewed 08/25: no overnight events, us chest, restraints, afebrile Objective Objective Current Medications Medications (Trade) Dose Ordered Sig/Javier Route PRN Reason Start Time Stop Time Status Last Admin Dose Admin Albuterol/ Ipratropium (Albuterol/ Ipratropium) 3 ml Q4H PRN HHN Shortness of Breath 08/25/19 09:30 08/30/19 09:29 Amlodipine Besylate (Norvasc) 5 mg BID NG 08/23/19 01:45 09/22/19 01:44 08/25/19 17:05 Atropine Sulfate (Atropine) 1 mg Q4H PRN IVP Per rx protocol 08/13/19 08:30 09/12/19 08:29 Chlorhexidine Gluconate (Nae-Hex 2%) 1 applic DAILY@1999 TOPIC 08/15/19 20:00 09/14/19 19:59 08/25/19 20:34 Dextrose (Dextrose 50%) 50 ml Q30M PRN IV Hypoglycemia 08/11/19 10:30 09/04/19 17:44 08/22/19 15:46 Diphenhydramine HCl (Benadryl) 50 mg Q4H PRN IVP Itching 08/09/19 14:30 09/08/19 14:29 08/13/19 02:39 Epoetin Thomas (Epoetin Thomas(ESRD on dialysis)) 4,000 unit SUBQ 08/12/19 21:00 09/11/19 20:59 08/24/19 21:07 Fluconazole/ Sodium Chloride 100 ml @ 100 mls/hr Q24H IV 08/18/19 13:00 08/29/19 23:59 08/25/19 12:43 Hydralazine HCl (Apresoline) 10 mg Q4H PRN IV For High Blood Pressure 08/18/19 12:44 09/17/19 12:43 08/22/19 09:22 Hydralazine HCl (Apresoline) 25 mg Q6HR NG 08/23/19 06:00 09/22/19 05:59 08/26/19 00:03 Lansoprazole (Prevacid) 30 mg BID GT 08/19/19 09:00 09/18/19 08:59 08/25/19 17:05 Levothyroxine Sodium (Synthroid) 50 mcg DAILY@0630 ORAL 08/25/19 06:30 09/24/19 06:29 08/25/19 06:39 Metoclopramide HCl (Reglan) 5 mg Q8H PRN IVP Nausea & Vomiting 08/09/19 12:39 09/08/19 12:38 Nitroglycerin (Nitro-Bid) 1 inch Q6HR TOPIC 08/09/19 12:39 09/08/19 12:38 08/26/19 05:44 Last 24 Hour Vital Signs Date Time Temp Pulse Resp B/P (MAP) Pulse Ox O2 Delivery O2 Flow Rate FiO2 08/26/19 07:00 58 19 128/65 (86) 100 08/26/19 06:57 64 18 40 08/26/19 06:30 66 20 08/26/19 06:00 60 21 128/63 (84) 100 08/26/19 05:44 142/70 08/26/19 05:44 142/70 08/26/19 05:05 67 18 40 08/26/19 05:00 65 24 142/70 (94) 97 08/26/19 04:00 40 08/26/19 04:00 Mechanical Ventilator Mechanical Ventilator Mechanical Ventilator Mechanical Ventilator 08/26/19 04:00 97.9 61 18 135/69 (91) 100 08/26/19 03:15 76 08/26/19 03:05 66 19 40 08/26/19 03:00 62 18 124/62 (82) 100 08/26/19 02:00 71 19 148/83 (104) 99 08/26/19 01:30 67 18 40 08/26/19 01:00 68 21 127/64 (85) 100 08/26/19 00:03 129/66 08/26/19 00:03 129/66 08/26/19 00:00 97.8 66 22 129/66 (87) 100 08/26/19 00:00 40 08/26/19 00:00 Mechanical Ventilator Mechanical Ventilator Mechanical Ventilator Mechanical Ventilator 08/25/19 23:30 72 18 40 08/25/19 23:18 66 08/25/19 23:00 75 20 141/73 (95) 100 08/25/19 22:00 71 21 119/64 (82) 100 08/25/19 21:14 74 19 40 08/25/19 21:00 64 18 119/64 (82) 100 08/25/19 20:00 Mechanical Ventilator Mechanical Ventilator Mechanical Ventilator Mechanical Ventilator 08/25/19 20:00 97.8 61 18 109/59 (76) 100 08/25/19 20:00 40 08/25/19 19:43 61 08/25/19 19:30 61 18 40 08/25/19 19:00 60 20 117/58 (77) 100 08/25/19 18:00 60 37 118/57 (77) 100 08/25/19 17:05 60 116/55 08/25/19 17:05 116/55 08/25/19 17:05 116/55 08/25/19 17:00 61 18 116/55 (75) 100 08/25/19 16:50 61 18 40 08/25/19 16:00 63 08/25/19 16:00 97.9 78 31 137/59 (85) 100 08/25/19 16:00 Mechanical Ventilator Mechanical Ventilator Mechanical Ventilator Mechanical Ventilator 08/25/19 15:09 60 22 123/61 (81) 100 08/25/19 15:00 71 28 166/92 (116) 100 08/25/19 14:43 66 19 40 08/25/19 14:39 40 08/25/19 14:00 65 22 113/90 (98) 100 08/25/19 13:41 50 08/25/19 13:11 68 19 40 08/25/19 13:00 98.1 72 25 120/61 (80) 95 08/25/19 12:43 143/64 08/25/19 12:42 143/64 08/25/19 12:00 74 27 143/64 (90) 100 08/25/19 12:00 Mechanical Ventilator Mechanical Ventilator Mechanical Ventilator Mechanical Ventilator 08/25/19 12:00 81 08/25/19 12:00 40 08/25/19 11:00 69 27 141/67 (91) 98 08/25/19 10:55 59 18 40 08/25/19 10:00 62 22 133/68 (89) 96 08/25/19 09:12 61 130/59 08/25/19 09:12 63 18 40 08/25/19 09:00 57 21 130/59 (82) 100 08/25/19 08:58 56 12 40 08/25/19 08:52 100 08/25/19 08:30 40 08/25/19 08:00 57 08/25/19 08:00 97.8 59 20 119/62 (81) 100 08/25/19 08:00 Mechanical Ventilator Mechanical Ventilator Mechanical Ventilator Mechanical Ventilator 08/25/19 08:00 40 08/25/19 07:00 94 28 170/79 (109) 98 08/25/19 06:59 93 25 40 08/25/19 06:39 128/65 08/25/19 06:39 128/65 08/25/19 06:30 63 20 08/25/19 06:00 55 18 128/65 (86) 100 08/25/19 05:19 60 18 40 08/25/19 05:00 58 21 140/60 (86) 100 08/25/19 04:00 98.1 59 21 124/60 (81) 100 08/25/19 04:00 40 08/25/19 04:00 Mechanical Ventilator Mechanical Ventilator 08/25/19 03:14 83 08/25/19 03:00 61 25 140/59 (86) 100 08/25/19 02:52 62 20 40 08/25/19 02:00 58 36 139/58 (85) 100 08/25/19 01:00 58 39 145/60 (88) 100 08/25/19 00:48 56 18 40 08/25/19 00:00 98.3 59 35 135/66 (89) 100 08/25/19 00:00 Mechanical Ventilator Mechanical Ventilator 08/24/19 23:40 127/62 08/24/19 23:40 127/62 08/24/19 23:30 60 18 40 08/24/19 23:27 58 08/24/19 23:00 59 18 127/61 (83) 100 08/24/19 22:00 63 24 136/64 (88) 100 08/24/19 21:26 64 18 40 08/24/19 21:00 63 19 127/59 (81) 100 08/24/19 20:00 Mechanical Ventilator Mechanical Ventilator 08/24/19 20:00 98.9 62 21 135/65 (88) 100 08/24/19 20:00 40 08/24/19 19:30 60 19 40 08/24/19 19:29 61 08/24/19 19:00 60 25 118/58 (78) 100 08/24/19 18:00 64 21 138/57 (84) 100 08/24/19 17:19 140/67 08/24/19 17:18 64 140/67 08/24/19 17:18 140/67 08/24/19 17:06 63 18 40 08/24/19 17:00 63 19 140/67 (91) 100 08/24/19 16:00 70 08/24/19 16:00 62 19 148/70 (96) 100 08/24/19 16:00 62 08/24/19 16:00 Mechanical Ventilator Mechanical Ventilator 08/24/19 15:20 68 22 40 08/24/19 15:00 99.8 63 18 152/72 (98) 100 08/24/19 14:00 66 20 141/63 (89) 100 08/24/19 13:00 61 18 142/60 (87) 100 08/24/19 12:38 63 18 40 08/24/19 12:32 143/59 08/24/19 12:32 143/59 08/24/19 12:30 64 23 133/61 (85) 100 08/24/19 12:00 70 08/24/19 12:00 61 08/24/19 12:00 99.8 61 22 135/49 (77) 100 08/24/19 12:00 Mechanical Ventilator Mechanical Ventilator 08/24/19 11:21 60 18 40 08/24/19 11:00 64 18 141/57 (85) 100 08/24/19 10:00 67 26 152/60 (90) 100 08/24/19 09:30 100 08/24/19 09:30 58 30 147/60 (89) 100 08/24/19 09:29 58 18 40 08/24/19 09:00 59 25 125/92 (103) 100 08/24/19 08:48 61 08/24/19 08:30 61 20 139/61 (87) 100 08/24/19 08:27 65 138/58 Intake and Output 08/25/19 08/26/19 19:00 07:00 Intake Total 620 ml 275 ml Balance 620 ml 275 ml Intake Free Water 100 ml 50 ml IV Total 100 ml Tube Feeding 420 ml 175 ml Other 50 ml # Voids 5 2 # Bowel Movements 3 2 Labs Test 08/23/19 09:05 08/23/19 09:56 08/24/19 06:10 08/25/19 03:10 White Blood Count 6.1 K/UL (4.8-10.8) 4.7 K/UL (4.8-10.8) 7.3 K/UL (4.8-10.8) Red Blood Count 3.45 M/UL (4.20-5.40) 2.70 M/UL (4.20-5.40) 3.43 M/UL (4.20-5.40) Hemoglobin 10.5 G/DL (12.0-16.0) 8.3 G/DL (12.0-16.0) 10.4 G/DL (12.0-16.0) Hematocrit 31.5 % (37.0-47.0) 24.6 % (37.0-47.0) 31.1 % (37.0-47.0) Mean Corpuscular Volume 91 FL (80-99) 91 FL (80-99) 91 FL (80-99) Mean Corpuscular Hemoglobin 30.4 PG (27.0-31.0) 30.8 PG (27.0-31.0) 30.4 PG (27.0-31.0) Mean Corpuscular Hemoglobin Concent 33.3 G/DL (32.0-36.0) 33.8 G/DL (32.0-36.0) 33.5 G/DL (32.0-36.0) Red Cell Distribution Width 17.6 % (11.6-14.8) 17.0 % (11.6-14.8) 16.2 % (11.6-14.8) Platelet Count 388 K/UL (150-450) 331 K/UL (150-450) 444 K/UL (150-450) Mean Platelet Volume 7.1 FL (6.5-10.1) 7.1 FL (6.5-10.1) 7.1 FL (6.5-10.1) Neutrophils (%) (Auto) 64.8 % (45.0-75.0) 55.5 % (45.0-75.0) 44.6 % (45.0-75.0) Lymphocytes (%) (Auto) 27.4 % (20.0-45.0) 33.6 % (20.0-45.0) 46.7 % (20.0-45.0) Monocytes (%) (Auto) 4.6 % (1.0-10.0) 7.8 % (1.0-10.0) 6.1 % (1.0-10.0) Eosinophils (%) (Auto) 1.4 % (0.0-3.0) 0.9 % (0.0-3.0) 1.1 % (0.0-3.0) Basophils (%) (Auto) 1.7 % (0.0-2.0) 2.3 % (0.0-2.0) 1.5 % (0.0-2.0) Sodium Level 136 MMOL/L (136-145) 135 MMOL/L (136-145) 133 MMOL/L (136-145) Potassium Level 4.4 MMOL/L (3.5-5.1) 3.7 MMOL/L (3.5-5.1) 4.0 MMOL/L (3.5-5.1) Chloride Level 101 MMOL/L (98-107) 100 MMOL/L (98-107) 98 MMOL/L (98-107) Carbon Dioxide Level 27 MMOL/L (21-32) 29 MMOL/L (21-32) 27 MMOL/L (21-32) Anion Gap 8 mmol/L (5-15) 7 mmol/L (5-15) 8 mmol/L (5-15) Blood Urea Nitrogen 45 mg/dL (7-18) 30 mg/dL (7-18) 40 mg/dL (7-18) Creatinine 3.6 MG/DL (0.55-1.30) 2.9 MG/DL (0.55-1.30) 3.3 MG/DL (0.55-1.30) Estimat Glomerular Filtration Rate 12.2 mL/min (>60) 15.7 mL/min (>60) 13.5 mL/min (>60) Glucose Level 132 MG/DL (74-106) 115 MG/DL (74-106) 151 MG/DL (74-106) Calcium Level 8.6 MG/DL (8.5-10.1) 8.1 MG/DL (8.5-10.1) 8.8 MG/DL (8.5-10.1) Thyroid Stimulating Hormone (TSH) 7.761 uiU/mL (0.358-3.740) Free Thyroxine 1.54 NG/DL (0.76-1.46) Arterial Blood pH 7.524 (7.350-7.450) Arterial Blood Partial Pressure CO2 33.3 mmHg (35.0-45.0) Arterial Blood Partial Pressure O2 130.4 mmHg (75.0-100.0) Arterial Blood HCO3 26.8 mmol/L (22.0-26.0) Arterial Blood Oxygen Saturation 98.3 % (95-100) Arterial Blood Base Excess 4.2 (-2-2) Cuauhtemoc Test Positive Phosphorus Level 2.5 MG/DL (2.5-4.9) 3.2 MG/DL (2.5-4.9) Magnesium Level 2.0 MG/DL (1.8-2.4) 2.4 MG/DL (1.8-2.4) Total Bilirubin 0.4 MG/DL (0.2-1.0) 0.4 MG/DL (0.2-1.0) Aspartate Amino Transf (AST/SGOT) 18 U/L (15-37) 22 U/L (15-37) Alanine Aminotransferase (ALT/SGPT) < 6 U/L (12-78) 10 U/L (12-78) Alkaline Phosphatase 132 U/L (46-116) 194 U/L (46-116) C-Reactive Protein, Quantitative 5.3 mg/dL (0.00-0.90) 6.2 mg/dL (0.00-0.90) Total Protein 5.1 G/DL (6.4-8.2) 6.0 G/DL (6.4-8.2) Albumin 1.5 G/DL (3.4-5.0) 1.6 G/DL (3.4-5.0) Globulin 3.6 g/dL 4.4 g/dL Albumin/Globulin Ratio 0.4 (1.0-2.7) 0.4 (1.0-2.7) Pro-B-Type Natriuretic Peptide > 15216 pg/mL (0-125) Height (Feet): 5 Height (Inches): 4.00 Weight (Pounds): 110 Objective gen: nad pulm: on trach+ / vent cv: rrr, no gmr abd: sfot, nt, nd ++ gt ext: no cce Gio Rob MD Aug 26, 2019 08:10
--- NOTE | 2019-08-26 08:33 | Critical Care Progress Note ---
Assessment/Plan Assessment/Plan respiratory failure hemoptysis resolved hypoxemia chronic renal failure toxic met encephalopathy severe protein calorie malnutrition cachexia left lung whiteout/collapse, improved with intubation s/p intubation anemia pulmonary edema with elevated BNP + pleural effusion PLAN repeat chest US noted thoracentesis ordered care noted and reviewed vent support as is/ will try SIMV if able but poor wean and volumes failed weaning past few days- likely too weak and has significant abnormality in cxr d/w family as to trach vs terminal care keep negative antibiotics noted monitor CXR and review elevated head and monitor ROM watch fluid status nutrition as able off load ICU care and management critical at present requires ICU management and close follow up care feeds as able and monitor residuals medications/laboratory data/nursing notes/ICU care reviewed in detail note reviewed and edited care discussed with RN and RT ICU time spent >40 minutes coordinating care Critical Care - Subjective Interval Events: care noted + effusion on US tap ordered not weaning on SIMV ROS Limited/Unobtainable: Yes Condition: critical EKG Rhythm: Sinus Rhythm Residuals: minimal Tube Feeding Tolerated: yes I&O: Intake and Output 08/25/19 08/26/19 19:00 07:00 Intake Total 620 ml 275 ml Balance 620 ml 275 ml Intake Free Water 100 ml 50 ml IV Total 100 ml Tube Feeding 420 ml 175 ml Other 50 ml # Voids 5 2 # Bowel Movements 3 2 Critical Care - Objective ET-Tube: 7.0 ET Position: 21 Last 24 Hour Vital Signs Date Time Temp Pulse Resp B/P (MAP) Pulse Ox O2 Delivery O2 Flow Rate FiO2 08/26/19 07:00 58 19 128/65 (86) 100 08/26/19 06:57 64 18 40 08/26/19 06:30 66 20 08/26/19 06:00 60 21 128/63 (84) 100 08/26/19 05:44 142/70 08/26/19 05:44 142/70 08/26/19 05:05 67 18 40 08/26/19 05:00 65 24 142/70 (94) 97 08/26/19 04:00 40 08/26/19 04:00 Mechanical Ventilator Mechanical Ventilator Mechanical Ventilator Mechanical Ventilator 08/26/19 04:00 97.9 61 18 135/69 (91) 100 08/26/19 03:15 76 08/26/19 03:05 66 19 40 3/13/20 03:00 62 18 124/62 (82) 100 08/26/19 02:00 71 19 148/83 (104) 99 08/26/19 01:30 67 18 40 08/26/19 01:00 68 21 127/64 (85) 100 08/26/19 00:03 129/66 08/26/19 00:03 129/66 08/26/19 00:00 97.8 66 22 129/66 (87) 100 08/26/19 00:00 40 08/26/19 00:00 Mechanical Ventilator Mechanical Ventilator Mechanical Ventilator Mechanical Ventilator 08/25/19 23:30 72 18 40 08/25/19 23:18 66 08/25/19 23:00 75 20 141/73 (95) 100 08/25/19 22:00 71 21 119/64 (82) 100 08/25/19 21:14 74 19 40 08/25/19 21:00 64 18 119/64 (82) 100 08/25/19 20:00 Mechanical Ventilator Mechanical Ventilator Mechanical Ventilator Mechanical Ventilator 08/25/19 20:00 97.8 61 18 109/59 (76) 100 08/25/19 20:00 40 08/25/19 19:43 61 08/25/19 19:30 61 18 40 08/25/19 19:00 60 20 117/58 (77) 100 08/25/19 18:00 60 37 118/57 (77) 100 08/25/19 17:05 60 116/55 08/25/19 17:05 116/55 08/25/19 17:05 116/55 08/25/19 17:00 61 18 116/55 (75) 100 08/25/19 16:50 61 18 40 08/25/19 16:00 63 08/25/19 16:00 97.9 78 31 137/59 (85) 100 08/25/19 16:00 Mechanical Ventilator Mechanical Ventilator Mechanical Ventilator Mechanical Ventilator 08/25/19 15:09 60 22 123/61 (81) 100 08/25/19 15:00 71 28 166/92 (116) 100 08/25/19 14:43 66 19 40 08/25/19 14:39 40 08/25/19 14:00 65 22 113/90 (98) 100 08/25/19 13:41 50 08/25/19 13:11 68 19 40 08/25/19 13:00 98.1 72 25 120/61 (80) 95 08/25/19 12:43 143/64 08/25/19 12:42 143/64 08/25/19 12:00 74 27 143/64 (90) 100 08/25/19 12:00 Mechanical Ventilator Mechanical Ventilator Mechanical Ventilator Mechanical Ventilator 08/25/19 12:00 81 08/25/19 12:00 40 08/25/19 11:00 69 27 141/67 (91) 98 08/25/19 10:55 59 18 40 08/25/19 10:00 62 22 133/68 (89) 96 08/25/19 09:12 61 130/59 08/25/19 09:12 63 18 40 08/25/19 09:00 57 21 130/59 (82) 100 08/25/19 08:58 56 12 40 08/25/19 08:52 100 Labs: Labs Test 08/23/19 09:05 08/23/19 09:56 08/24/19 06:10 08/25/19 03:10 White Blood Count 6.1 K/UL (4.8-10.8) 4.7 K/UL (4.8-10.8) 7.3 K/UL (4.8-10.8) Red Blood Count 3.45 M/UL (4.20-5.40) 2.70 M/UL (4.20-5.40) 3.43 M/UL (4.20-5.40) Hemoglobin 10.5 G/DL (12.0-16.0) 8.3 G/DL (12.0-16.0) 10.4 G/DL (12.0-16.0) Hematocrit 31.5 % (37.0-47.0) 24.6 % (37.0-47.0) 31.1 % (37.0-47.0) Mean Corpuscular Volume 91 FL (80-99) 91 FL (80-99) 91 FL (80-99) Mean Corpuscular Hemoglobin 30.4 PG (27.0-31.0) 30.8 PG (27.0-31.0) 30.4 PG (27.0-31.0) Mean Corpuscular Hemoglobin Concent 33.3 G/DL (32.0-36.0) 33.8 G/DL (32.0-36.0) 33.5 G/DL (32.0-36.0) Red Cell Distribution Width 17.6 % (11.6-14.8) 17.0 % (11.6-14.8) 16.2 % (11.6-14.8) Platelet Count 388 K/UL (150-450) 331 K/UL (150-450) 444 K/UL (150-450) Mean Platelet Volume 7.1 FL (6.5-10.1) 7.1 FL (6.5-10.1) 7.1 FL (6.5-10.1) Neutrophils (%) (Auto) 64.8 % (45.0-75.0) 55.5 % (45.0-75.0) 44.6 % (45.0-75.0) Lymphocytes (%) (Auto) 27.4 % (20.0-45.0) 33.6 % (20.0-45.0) 46.7 % (20.0-45.0) Monocytes (%) (Auto) 4.6 % (1.0-10.0) 7.8 % (1.0-10.0) 6.1 % (1.0-10.0) Eosinophils (%) (Auto) 1.4 % (0.0-3.0) 0.9 % (0.0-3.0) 1.1 % (0.0-3.0) Basophils (%) (Auto) 1.7 % (0.0-2.0) 2.3 % (0.0-2.0) 1.5 % (0.0-2.0) Sodium Level 136 MMOL/L (136-145) 135 MMOL/L (136-145) 133 MMOL/L (136-145) Potassium Level 4.4 MMOL/L (3.5-5.1) 3.7 MMOL/L (3.5-5.1) 4.0 MMOL/L (3.5-5.1) Chloride Level 101 MMOL/L (98-107) 100 MMOL/L (98-107) 98 MMOL/L (98-107) Carbon Dioxide Level 27 MMOL/L (21-32) 29 MMOL/L (21-32) 27 MMOL/L (21-32) Anion Gap 8 mmol/L (5-15) 7 mmol/L (5-15) 8 mmol/L (5-15) Blood Urea Nitrogen 45 mg/dL (7-18) 30 mg/dL (7-18) 40 mg/dL (7-18) Creatinine 3.6 MG/DL (0.55-1.30) 2.9 MG/DL (0.55-1.30) 3.3 MG/DL (0.55-1.30) Estimat Glomerular Filtration Rate 12.2 mL/min (>60) 15.7 mL/min (>60) 13.5 mL/min (>60) Glucose Level 132 MG/DL (74-106) 115 MG/DL (74-106) 151 MG/DL (74-106) Calcium Level 8.6 MG/DL (8.5-10.1) 8.1 MG/DL (8.5-10.1) 8.8 MG/DL (8.5-10.1) Thyroid Stimulating Hormone (TSH) 7.761 uiU/mL (0.358-3.740) Free Thyroxine 1.54 NG/DL (0.76-1.46) Arterial Blood pH 7.524 (7.350-7.450) Arterial Blood Partial Pressure CO2 33.3 mmHg (35.0-45.0) Arterial Blood Partial Pressure O2 130.4 mmHg (75.0-100.0) Arterial Blood HCO3 26.8 mmol/L (22.0-26.0) Arterial Blood Oxygen Saturation 98.3 % (95-100) Arterial Blood Base Excess 4.2 (-2-2) Cuauhtemoc Test Positive Phosphorus Level 2.5 MG/DL (2.5-4.9) 3.2 MG/DL (2.5-4.9) Magnesium Level 2.0 MG/DL (1.8-2.4) 2.4 MG/DL (1.8-2.4) Total Bilirubin 0.4 MG/DL (0.2-1.0) 0.4 MG/DL (0.2-1.0) Aspartate Amino Transf (AST/SGOT) 18 U/L (15-37) 22 U/L (15-37) Alanine Aminotransferase (ALT/SGPT) < 6 U/L (12-78) 10 U/L (12-78) Alkaline Phosphatase 132 U/L (46-116) 194 U/L (46-116) C-Reactive Protein, Quantitative 5.3 mg/dL (0.00-0.90) 6.2 mg/dL (0.00-0.90) Total Protein 5.1 G/DL (6.4-8.2) 6.0 G/DL (6.4-8.2) Albumin 1.5 G/DL (3.4-5.0) 1.6 G/DL (3.4-5.0) Globulin 3.6 g/dL 4.4 g/dL Albumin/Globulin Ratio 0.4 (1.0-2.7) 0.4 (1.0-2.7) Pro-B-Type Natriuretic Peptide > 95433 pg/mL (0-125) Objective: WDWN NAD intubated reduced breath sounds bilaterally overall worse without rhonchi or wheeze [id number] without MRG NABS nontender no HSM no CCE contractures feeding tube in place no distention poorly responsive nonfocal cachectic reviewed and edited Accucheck: 94 Malcolm Cruz MD Aug 26, 2019 08:33
[2019-08-26 09:59] LABS: BASOPHILS % (AUTO) 1.2 % (0.0-2.0); EOSINOPHILS % (AUTO) 0.9 % (0.0-3.0); HEMATOCRIT 29.7 % (37.0-47.0); HEMOGLOBIN 9.9 G/DL (12.0-16.0); LYMPHOCYTES % (AUTO) 44.9 % (20.0-45.0); MEAN CORPUSCULAR VOLUME 90 FL (80-99); MONOCYTES % (AUTO) 7.2 % (1.0-10.0); NEUTROPHILS % (AUTO) 45.9 % (45.0-75.0); PLATELET COUNT 450 K/UL (150-450); RED BLOOD COUNT 3.29 M/UL (4.20-5.40); RED CELL DISTRIBUTION WIDTH 16.5 % (11.6-14.8); WHITE BLOOD COUNT 5.8 K/UL (4.8-10.8)
[2019-08-26 10:19] LABS: ANION GAP 11 mmol/L (5-15); BLOOD UREA NITROGEN 48 mg/dL (7-18); CALCIUM 8.6 MG/DL (8.5-10.1); CARBON DIOXIDE 26 MMOL/L (21-32); CHLORIDE 99 MMOL/L (98-107); CREATININE 3.6 MG/DL (0.55-1.30); POTASSIUM 3.8 MMOL/L (3.5-5.1); SODIUM 135 MMOL/L (136-145)
[2019-08-26 10:24] LABS: ALANINE AMINOTRANSFERASE 10 U/L (12-78); ALBUMIN 1.6 G/DL (3.4-5.0); ALBUMIN/GLOBULIN RATIO 0.4 (1.0-2.7); ALKALINE PHOSPHATASE 148 U/L (46-116); ASPARTATE AMINO TRANSFERASE 24 U/L (15-37); BILIRUBIN,TOTAL 0.4 MG/DL (0.2-1.0)
[2019-08-26] MEDS ORDERED: Heparin1,000 units/500ml Premix(Conc:2 units/ml) IV SCH (11:00)
[2019-08-26] MEDS ORDERED: Lidocaine 1% Plain 30 ml INJ SCH (11:00)
[2019-08-26] MEDS ORDERED: Heparin1,000 units/500ml Premix(Conc:2 units/ml) IV PRN (11:15)
[2019-08-26] MEDS ORDERED: Lidocaine 1% Plain 30 ml INJ PRN (11:15)
--- NOTE | 2019-08-26 11:54 | Infectious Diseases Prog Note ---
Assessment/Plan Assessment/Plan antibiotics : fluconazole A 1. jarad albicans fungemia 2. right shoulder septic arthritis with staph aureus s/p rx 3. renal failure 4. thrombocytopenia resolved 7. diabetes mellitus 8. hypertension 9. respiratory failure P 1. continue fluconazole 3 more days 2. sputum culture 3. will follow up cultures Subjective ROS Limited/Unobtainable: Yes Allergies: Coded Allergies: VANCOMYCIN (Unverified Allergy, Unknown, 08/02/19) Objective Vital Signs Last 24 Hour Vital Signs Date Time Temp Pulse Resp B/P (MAP) Pulse Ox O2 Delivery O2 Flow Rate FiO2 08/26/19 09:58 98 08/26/19 09:05 68 18 40 08/26/19 08:45 68 133/75 08/26/19 08:00 69 08/26/19 07:00 58 19 128/65 (86) 100 08/26/19 06:57 64 18 40 08/26/19 06:30 66 20 08/26/19 06:00 60 21 128/63 (84) 100 08/26/19 05:44 142/70 08/26/19 05:44 142/70 08/26/19 05:05 67 18 40 08/26/19 05:00 65 24 142/70 (94) 97 08/26/19 04:00 40 08/26/19 04:00 Mechanical Ventilator Mechanical Ventilator Mechanical Ventilator Mechanical Ventilator 08/26/19 04:00 97.9 61 18 135/69 (91) 100 08/26/19 03:15 76 08/26/19 03:05 66 19 40 08/26/19 03:00 62 18 124/62 (82) 100 08/26/19 02:00 71 19 148/83 (104) 99 08/26/19 01:30 67 18 40 08/26/19 01:00 68 21 127/64 (85) 100 08/26/19 00:03 129/66 08/26/19 00:03 129/66 08/26/19 00:00 97.8 66 22 129/66 (87) 100 08/26/19 00:00 40 08/26/19 00:00 Mechanical Ventilator Mechanical Ventilator Mechanical Ventilator Mechanical Ventilator 08/25/19 23:30 72 18 40 08/25/19 23:18 66 08/25/19 23:00 75 20 141/73 (95) 100 08/25/19 22:00 71 21 119/64 (82) 100 08/25/19 21:14 74 19 40 08/25/19 21:00 64 18 119/64 (82) 100 08/25/19 20:00 Mechanical Ventilator Mechanical Ventilator Mechanical Ventilator Mechanical Ventilator 08/25/19 20:00 97.8 61 18 109/59 (76) 100 08/25/19 20:00 40 08/25/19 19:43 61 08/25/19 19:30 61 18 40 08/25/19 19:00 60 20 117/58 (77) 100 08/25/19 18:00 60 37 118/57 (77) 100 08/25/19 17:05 60 116/55 08/25/19 17:05 116/55 08/25/19 17:05 116/55 08/25/19 17:00 61 18 116/55 (75) 100 08/25/19 16:50 61 18 40 08/25/19 16:00 63 08/25/19 16:00 97.9 78 31 137/59 (85) 100 08/25/19 16:00 Mechanical Ventilator Mechanical Ventilator Mechanical Ventilator Mechanical Ventilator 08/25/19 15:09 60 22 123/61 (81) 100 08/25/19 15:00 71 28 166/92 (116) 100 08/25/19 14:43 66 19 40 08/25/19 14:39 40 08/25/19 14:00 65 22 113/90 (98) 100 08/25/19 13:41 50 08/25/19 13:11 68 19 40 08/25/19 13:00 98.1 72 25 120/61 (80) 95 08/25/19 12:43 143/64 08/25/19 12:42 143/64 08/25/19 12:00 74 27 143/64 (90) 100 08/25/19 12:00 Mechanical Ventilator Mechanical Ventilator Mechanical Ventilator Mechanical Ventilator 08/25/19 12:00 81 08/25/19 12:00 40 Height (Feet): 5 Height (Inches): 4.00 Weight (Pounds): 110 HEENT: other - intubated Respiratory/Chest: lungs clear Cardiovascular: normal rate, regular rhythm, no gallop/murmur Abdomen: soft, non tender Extremities: no edema, other - right groin catheter Laboratory Tests Test 08/26/19 09:05 White Blood Count 5.8 K/UL (4.8-10.8) Red Blood Count 3.29 M/UL (4.20-5.40) L Hemoglobin 9.9 G/DL (12.0-16.0) L Hematocrit 29.7 % (37.0-47.0) L Mean Corpuscular Volume 90 FL (80-99) Mean Corpuscular Hemoglobin 30.3 PG (27.0-31.0) Mean Corpuscular Hemoglobin Concent 33.5 G/DL (32.0-36.0) Red Cell Distribution Width 16.5 % (11.6-14.8) H Platelet Count 450 K/UL (150-450) Mean Platelet Volume 6.2 FL (6.5-10.1) L Neutrophils (%) (Auto) 45.9 % (45.0-75.0) Lymphocytes (%) (Auto) 44.9 % (20.0-45.0) Monocytes (%) (Auto) 7.2 % (1.0-10.0) Eosinophils (%) (Auto) 0.9 % (0.0-3.0) Basophils (%) (Auto) 1.2 % (0.0-2.0) Sodium Level 135 MMOL/L (136-145) L Potassium Level 3.8 MMOL/L (3.5-5.1) Chloride Level 99 MMOL/L (98-107) Carbon Dioxide Level 26 MMOL/L (21-32) Anion Gap 11 mmol/L (5-15) Blood Urea Nitrogen 48 mg/dL (7-18) H Creatinine 3.6 MG/DL (0.55-1.30) H Estimat Glomerular Filtration Rate 12.2 mL/min (>60) Glucose Level 97 MG/DL (74-106) Calcium Level 8.6 MG/DL (8.5-10.1) Total Bilirubin 0.4 MG/DL (0.2-1.0) Aspartate Amino Transf (AST/SGOT) 24 U/L (15-37) Alanine Aminotransferase (ALT/SGPT) 10 U/L (12-78) L Alkaline Phosphatase 148 U/L (46-116) H Total Protein 5.7 G/DL (6.4-8.2) L Albumin 1.6 G/DL (3.4-5.0) L Globulin 4.1 g/dL Albumin/Globulin Ratio 0.4 (1.0-2.7) L Current Medications Medications (Trade) Dose Ordered Sig/Javier Route PRN Reason Start Time Stop Time Status Last Admin Dose Admin Albuterol/ Ipratropium (Albuterol/ Ipratropium) 3 ml Q4H PRN HHN Shortness of Breath 08/25/19 09:30 08/30/19 09:29 Amlodipine Besylate (Norvasc) 5 mg BID NG 08/23/19 01:45 09/22/19 01:44 08/26/19 08:45 Atropine Sulfate (Atropine) 1 mg Q4H PRN IVP Per rx protocol 08/13/19 08:30 09/12/19 08:29 Chlorhexidine Gluconate (Nae-Hex 2%) 1 applic DAILY@2000 TOPIC 08/15/19 20:00 09/14/19 19:59 08/25/19 20:34 Dextrose (Dextrose 50%) 50 ml Q30M PRN IV Hypoglycemia 08/11/19 10:30 09/04/19 17:44 08/22/19 15:46 Diphenhydramine HCl (Benadryl) 50 mg Q4H PRN IVP Itching 08/09/19 14:30 09/08/19 14:29 08/13/19 02:39 Epoetin Thomas (Epoetin Thomas(ESRD on dialysis)) 4,000 unit THU-THU-THU SUBQ 08/12/19 21:00 09/11/19 20:59 08/24/19 21:07 Fluconazole/ Sodium Chloride 100 ml @ 100 mls/hr Q24H IV 08/18/19 13:00 08/29/19 23:59 08/25/19 12:43 Heparin Sodium/ Sodium Chloride (Heparin 1000 units/500ml Premix) 1,000 unit ONCE PRN IV HD Catheter insertion 08/26/19 11:15 08/26/19 18:00 Hydralazine HCl (Apresoline) 10 mg Q4H PRN IV For High Blood Pressure 08/18/19 12:44 09/17/19 12:43 08/22/19 09:22 Hydralazine HCl (Apresoline) 25 mg Q6HR NG 08/23/19 06:00 09/22/19 05:59 08/26/19 00:03 Lansoprazole (Prevacid) 30 mg BID GT 08/19/19 09:00 09/18/19 08:59 08/26/19 08:43 Levothyroxine Sodium (Synthroid) 50 mcg DAILY@0630 ORAL 08/25/19 06:30 09/24/19 06:29 08/25/19 06:39 Lidocaine HCl (Xylocaine 1% 30ml) 30 ml ONCE PRN INJ HD CATHETER INSERTION 08/26/19 11:15 08/26/19 18:00 Metoclopramide HCl (Reglan) 5 mg Q8H PRN IVP Nausea & Vomiting 08/09/19 12:39 09/08/19 12:38 Nitroglycerin (Nitro-Bid) 1 inch Q6HR TOPIC 08/09/19 12:39 09/08/19 12:38 08/26/19 05:44 Melissa Solares MD Aug 26, 2019 11:54
--- NOTE | 2019-08-26 12:39 | Surgery Progress Note ---
Surgery Progress Note Subjective Procedure Performed Right Femoral Temporary Hemodialysis catheter Insertion Additional Comments ill appearing on support not weaning Objective Last 24 Hour Vital Signs Date Time Temp Pulse Resp B/P (MAP) Pulse Ox O2 Delivery O2 Flow Rate FiO2 08/26/19 09:58 98 08/26/19 09:05 68 18 40 08/26/19 08:45 68 133/75 08/26/19 08:00 69 08/26/19 07:00 58 19 128/65 (86) 100 08/26/19 06:57 64 18 40 08/26/19 06:30 66 20 08/26/19 06:00 60 21 128/63 (84) 100 08/26/19 05:44 142/70 08/26/19 05:44 142/70 08/26/19 05:05 67 18 40 08/26/19 05:00 65 24 142/70 (94) 97 08/26/19 04:00 40 08/26/19 04:00 Mechanical Ventilator Mechanical Ventilator Mechanical Ventilator Mechanical Ventilator 08/26/19 04:00 97.9 61 18 135/69 (91) 100 08/26/19 03:15 76 08/26/19 03:05 66 19 40 08/26/19 03:00 62 18 124/62 (82) 100 08/26/19 02:00 71 19 148/83 (104) 99 08/26/19 01:30 67 18 40 08/26/19 01:00 68 21 127/64 (85) 100 08/26/19 00:03 129/66 08/26/19 00:03 129/66 08/26/19 00:00 97.8 66 22 129/66 (87) 100 08/26/19 00:00 40 08/26/19 00:00 Mechanical Ventilator Mechanical Ventilator Mechanical Ventilator Mechanical Ventilator 08/25/19 23:30 72 18 40 08/25/19 23:18 66 08/25/19 23:00 75 20 141/73 (95) 100 08/25/19 22:00 71 21 119/64 (82) 100 08/25/19 21:14 74 19 40 08/25/19 21:00 64 18 119/64 (82) 100 08/25/19 20:00 Mechanical Ventilator Mechanical Ventilator Mechanical Ventilator Mechanical Ventilator 08/25/19 20:00 97.8 61 18 109/59 (76) 100 08/25/19 20:00 40 08/25/19 19:43 61 08/25/19 19:30 61 18 40 08/25/19 19:00 60 20 117/58 (77) 100 08/25/19 18:00 60 37 118/57 (77) 100 08/25/19 17:05 60 116/55 08/25/19 17:05 116/55 08/25/19 17:05 116/55 08/25/19 17:00 61 18 116/55 (75) 100 08/25/19 16:50 61 18 40 08/25/19 16:00 63 08/25/19 16:00 97.9 78 31 137/59 (85) 100 08/25/19 16:00 Mechanical Ventilator Mechanical Ventilator Mechanical Ventilator Mechanical Ventilator 08/25/19 15:09 60 22 123/61 (81) 100 08/25/19 15:00 71 28 166/92 (116) 100 08/25/19 14:43 66 19 40 08/25/19 14:39 40 08/25/19 14:00 65 22 113/90 (98) 100 08/25/19 13:41 50 08/25/19 13:11 68 19 40 08/25/19 13:00 98.1 72 25 120/61 (80) 95 08/25/19 12:43 143/64 08/25/19 12:42 143/64 I&O Intake and Output 08/25/19 08/26/19 19:00 07:00 Intake Total 620 ml 275 ml Balance 620 ml 275 ml Intake Free Water 100 ml 50 ml IV Total 100 ml Tube Feeding 420 ml 175 ml Other 50 ml # Voids 5 2 # Bowel Movements 3 2 Dressing: other Wound: other Drains: other Cardiovascular: RSR Respiratory: decreased breath sounds Abdomen: soft, present bowel sounds Extremities: no cyanosis Laboratory Tests Test 08/26/19 09:05 White Blood Count 5.8 K/UL (4.8-10.8) Red Blood Count 3.29 M/UL (4.20-5.40) L Hemoglobin 9.9 G/DL (12.0-16.0) L Hematocrit 29.7 % (37.0-47.0) L Mean Corpuscular Volume 90 FL (80-99) Mean Corpuscular Hemoglobin 30.3 PG (27.0-31.0) Mean Corpuscular Hemoglobin Concent 33.5 G/DL (32.0-36.0) Red Cell Distribution Width 16.5 % (11.6-14.8) H Platelet Count 450 K/UL (150-450) Mean Platelet Volume 6.2 FL (6.5-10.1) L Neutrophils (%) (Auto) 45.9 % (45.0-75.0) Lymphocytes (%) (Auto) 44.9 % (20.0-45.0) Monocytes (%) (Auto) 7.2 % (1.0-10.0) Eosinophils (%) (Auto) 0.9 % (0.0-3.0) Basophils (%) (Auto) 1.2 % (0.0-2.0) Sodium Level 135 MMOL/L (136-145) L Potassium Level 3.8 MMOL/L (3.5-5.1) Chloride Level 99 MMOL/L (98-107) Carbon Dioxide Level 26 MMOL/L (21-32) Anion Gap 11 mmol/L (5-15) Blood Urea Nitrogen 48 mg/dL (7-18) H Creatinine 3.6 MG/DL (0.55-1.30) H Estimat Glomerular Filtration Rate 12.2 mL/min (>60) Glucose Level 97 MG/DL (74-106) Calcium Level 8.6 MG/DL (8.5-10.1) Total Bilirubin 0.4 MG/DL (0.2-1.0) Aspartate Amino Transf (AST/SGOT) 24 U/L (15-37) Alanine Aminotransferase (ALT/SGPT) 10 U/L (12-78) L Alkaline Phosphatase 148 U/L (46-116) H Total Protein 5.7 G/DL (6.4-8.2) L Albumin 1.6 G/DL (3.4-5.0) L Globulin 4.1 g/dL Albumin/Globulin Ratio 0.4 (1.0-2.7) L Assessment Post-op Diagnosis same Plan Problems: (1) Malnutrition Assessment & Plan: DAILY ESTIMATED NEEDS: Needs based on ESRD+ HD, underweight, wound/ 39.5kg 35-40 kcals/kg 8463-4955 total kcals 1.25-1.8 g protein/kg 49-71 g total protein 20-22 mL/kg 790-869 total fluid mLs NUTRITION DIAGNOSIS: * Increased kcal and protein needs r/t underweight status, HD needs, wuond healing as evidenced by pt is underweight per guidelines, ESRD, on HD, admitted non-blanching erythema wounds @ BL heels and sacrum * Swallowing difficulty R/T dysphagia as evidenced by MARKETING INFORMATION COORDINATOR recommends temporary nonoral feeding at this time, s/p NGT insertion, on NGT feeding-> now s/p self removal, NPO. CURRENT TF:NPO PO DIET RECOMMENDATIONS: WHEN SAFE FOR ORAL DIET -> renal/ texture per MARKETING INFORMATION COORDINATOR ENTERAL NUTRITION RECOMMENDATIONS: W/ GI access: Nepro @ 35ml/hr x 22 hrs to provide 770ml, 1386kcal, 62g prot, 560ml free water * W/ GI access, resume TF on Nepro * Initiate Nepro @ 15ml/hr x 6 hrs, advance 10ml q 4-6 hrs as tolerated to goal rate. * Hold 1 hour before and after Synthroid med * HOB over 30 degrees/ water flush per MD. ADDITIONAL RECOMMENDATIONS: 1) Calibrated bed scale wt for accurate CBW -> daily wt monitoring Per HD record: dry wt on 07/30=39.5kg (87lbs) 2) Wound care: (W/ GI access) add Nephorivte x 1 + Balta BID 3) Monitor NPO status: without GI access at this time, s/p pulling out NGT 4) Monitor for hypoglycemia while NPO 5) Monitor for continuity of HD (2) Septic arthritis Assessment & Plan: Pt presented on admission with generalized scaly rash . pt noted to be restless and scratching at skin. Bleeding from oral mucosa noted. Joint deformity noted to R shoulder. Surgical incision approximated with 11 sutures. Erythema but no exudate,or elevation in skin temp at site of incision. Historical incision R hip that is tunneled.Small amt seropurulent exudate noted. Periwound is erythematous,but no elevation in skin temp noted. No odor noted. Non-blanching erythema noted to sacrum. Perianal area is erythematous and excoriated. L heel is boggy with non-blanching erythema. R heel is soft with non-blanching erythema. No evidence of skin breakdown to all other bony prominences. Tx.plan: Cover R shoulder with Drsg and change daily and prn. Cleanse R hip wound with Saline. Apply Therahoney.Apply Cavilon Skin Barrier periwound. Cover with Optifoam drsg. Change every 3 days and prn. Apply Moisture Barrier Paste to perianal area and buttocks. Cover Sacrum with Optifoam drsg. Change every 3 days and prn. Apply Cavilon Skin Barrier to both heels. Cover each heel with Optifoam drsg. Change every 7 days and prn. APM/ELVIA Mattress overlay. Reposition at least every 2hours or as tolerated. Off-load heels with pillow. HD cath necessary HD as renal likely will need intubation (3) Wound, open, hip or thigh with complication Assessment & Plan: slow healing will need nutritional optimization difficult ng tube peg when stable sutures removed from right shoulder comfortable wean vent may need trach (4) Abscess of right hip (5) possible septic arthritis Camilo James Aug 26, 2019 12:39
--- NOTE | 2019-08-26 14:40 | General Progress Note ---
Assessment/Plan Problem List: (1) Failure to thrive (0-17) ICD Codes: R62.51 - Failure to thrive (0-17) SNOMED: 882506421 (2) Hypertensive kidney disease ICD Codes: I12.9 - Hypertensive chronic kidney disease with stage 1 through stage 4 chronic kidney disease, or unspecified chronic kidney disease SNOMED: 40524037 (3) Pneumonia ICD Codes: J18.9 - Pneumonia, unspecified organism SNOMED: 442449038 Qualifiers: Qualified Codes: J18.9 - Pneumonia, unspecified organism (4) ESRD (end stage renal disease) ICD Codes: N18.6 - End stage renal disease SNOMED: 38535345 (5) Septic arthritis ICD Codes: M00.9 - Pyogenic arthritis, unspecified SNOMED: 677563939 (6) Thrombocytopenia ICD Codes: D69.6 - Thrombocytopenia, unspecified SNOMED: 633733148 (7) Hypotension ICD Codes: I95.9 - Hypotension, unspecified SNOMED: 13452050 Qualifiers: Qualified Codes: I95.3 - Hypotension of hemodialysis (8) Malnutrition ICD Codes: E46 - Unspecified protein-calorie malnutrition SNOMED: 35920518 Status: stable, not improved, unchanged, deteriorating Assessment/Plan: cont resp care chest pt/suctioning resp rx tap effusion cont weaning- try simv No plans for trach. resp/volume status needs to be optimized as much as possible try tap effusion monitor plts iv PPI iv abx perm cath replacement HD bp rx critical and guarded tube feeds per gi will d/w family trach vs terminal extubation Subjective ROS Limited/Unobtainable: Yes Constitutional: Reports: malaise, weakness HEENT: Reports: no symptoms Cardiovascular: Reports: no symptoms Respiratory: Reports: shortness of breath, sputum Gastrointestinal/Abdominal: Reports: difficulty swallowing Genitourinary: Reports: no symptoms Neurologic/Psychiatric: Reports: anxiety Endocrine: Reports: no symptoms Hematologic/Lymphatic: Reports: anemia Allergies: Coded Allergies: VANCOMYCIN (Unverified Allergy, Unknown, 08/02/19) All Systems: reviewed and negative except above Subjective no events. on the vent. remains alert and awake. no fevers. alert. minimal congestion/secretions. cxr with mod pleural effusion. not able to wean yet. d/w . trach recommended pending new perm cath and us guided thoracentesis Objective Last 24 Hour Vital Signs Date Time Temp Pulse Resp B/P (MAP) Pulse Ox O2 Delivery O2 Flow Rate FiO2 08/26/19 13:06 76 19 40 08/26/19 13:00 75 20 121/77 (92) 99 08/26/19 12:00 98.2 62 25 116/60 (78) 100 58 08/26/19 11:06 75 19 40 08/26/19 11:00 71 20 137/75 (95) 92 08/26/19 10:00 65 21 148/67 (94) 100 60 08/26/19 09:58 98 08/26/19 09:05 68 18 40 08/26/19 09:00 68 21 134/111 (119) 99 08/26/19 08:45 68 133/75 08/26/19 08:00 69 08/26/19 08:00 98.3 66 23 151/127 (135) 100 70 08/26/19 07:00 58 19 128/65 (86) 100 08/26/19 06:57 64 18 40 08/26/19 06:30 66 20 08/26/19 06:00 60 21 128/63 (84) 100 08/26/19 05:44 142/70 08/26/19 05:44 142/70 08/26/19 05:05 67 18 40 08/26/19 05:00 65 24 142/70 (94) 97 08/26/19 04:00 40 08/26/19 04:00 Mechanical Ventilator Mechanical Ventilator Mechanical Ventilator Mechanical Ventilator 08/26/19 04:00 97.9 61 18 135/69 (91) 100 08/26/19 03:15 76 08/26/19 03:05 66 19 40 08/26/19 03:00 62 18 124/62 (82) 100 08/26/19 02:00 71 19 148/83 (104) 99 08/26/19 01:30 67 18 40 08/26/19 01:00 68 21 127/64 (85) 100 08/26/19 00:03 129/66 08/26/19 00:03 129/66 08/26/19 00:00 97.8 66 22 129/66 (87) 100 08/26/19 00:00 40 08/26/19 00:00 Mechanical Ventilator Mechanical Ventilator Mechanical Ventilator Mechanical Ventilator 08/25/19 23:30 72 18 40 08/25/19 23:18 66 08/25/19 23:00 75 20 141/73 (95) 100 08/25/19 22:00 71 21 119/64 (82) 100 08/25/19 21:14 74 19 40 08/25/19 21:00 64 18 119/64 (82) 100 08/25/19 20:00 Mechanical Ventilator Mechanical Ventilator Mechanical Ventilator Mechanical Ventilator 08/25/19 20:00 97.8 61 18 109/59 (76) 100 08/25/19 20:00 40 08/25/19 19:43 61 08/25/19 19:30 61 18 40 08/25/19 19:00 60 20 117/58 (77) 100 08/25/19 18:00 60 37 118/57 (77) 100 08/25/19 17:05 60 116/55 08/25/19 17:05 116/55 08/25/19 17:05 116/55 08/25/19 17:00 61 18 116/55 (75) 100 08/25/19 16:50 61 18 40 08/25/19 16:00 63 08/25/19 16:00 97.9 78 31 137/59 (85) 100 08/25/19 16:00 Mechanical Ventilator Mechanical Ventilator Mechanical Ventilator Mechanical Ventilator 08/25/19 15:09 60 22 123/61 (81) 100 08/25/19 15:00 71 28 166/92 (116) 100 08/25/19 14:43 66 19 40 Intake and Output 08/25/19 08/26/19 19:00 07:00 Intake Total 620 ml 275 ml Balance 620 ml 275 ml Intake Free Water 100 ml 50 ml IV Total 100 ml Tube Feeding 420 ml 175 ml Other 50 ml # Voids 5 2 # Bowel Movements 3 2 Laboratory Tests 08/26/19 09:05: White Blood Count 5.8, Red Blood Count 3.29L, Hemoglobin 9.9L, Hematocrit 29.7L , Mean Corpuscular Volume 90, Mean Corpuscular Hemoglobin 30.3, Mean Corpuscular Hemoglobin Concent 33.5, Red Cell Distribution Width 16.5H, Platelet Count 450, Mean Platelet Volume 6.2L, Neutrophils (%) (Auto) 45.9, Lymphocytes (%) (Auto) 44.9, Monocytes (%) (Auto) 7.2, Eosinophils (%) (Auto) 0.9, Basophils (%) (Auto) 1.2, Sodium Level 135L, Potassium Level 3.8, Chloride Level 99, Carbon Dioxide Level 26, Anion Gap 11, Blood Urea Nitrogen 48H, Creatinine 3.6H, Estimat Glomerular Filtration Rate 12.2, Glucose Level 97, Calcium Level 8.6, Total Bilirubin 0.4, Aspartate Amino Transf (AST/SGOT) 24, Alanine Aminotransferase (ALT/SGPT) 10L, Alkaline Phosphatase 148H, Total Protein 5.7L, Albumin 1.6L, Globulin 4.1, Albumin/Globulin Ratio 0.4L Height (Feet): 5 Height (Inches): 4.00 Weight (Pounds): 110 Objective General Appearance: WD/WN, awake/moaning. orally intubated Neck: supple Cardiovascular: normal rate Respiratory/Chest: rhonchi - bilaterally Abdomen: normal bowel sounds, non tender, soft, no organomegaly Edema: no edema noted Arm (L), no edema noted Arm (R), no edema noted Leg (L), no edema noted Leg (R), no edema noted Pedal (L), no edema noted Pedal (R), no edema noted Generalized Neurologic: disoriented, aphasia Nate Beltran MD Aug 26, 2019 14:40
[2019-08-26] MEDS: Epoetin Alfa-EPBX(ESRD on dialysis)4000 units/ml vial SUBQ SCH (21:41)
[2019-08-26] MEDS: Dyna-Hex 2% Top Sol 2oz TOPIC SCH (21:41)
--- NOTE | 2019-08-26 21:59 | General Progress Note ---
Assessment/Plan Status: stable, not improved, unchanged, deteriorating Assessment/Plan: Assessment - Severe ulcerative esophagitis on endoscopy - on BID PPI - Resp failure --> now intubated - thrombocytopenia --> resolved - Renal failure --> now on HD, stablized - aspiration risk --> s/p PEG - anemia - bradycardia - Poor prognosis Recommendations - Continue TF - reduce water flushes - elevate HOB - monitor H&H Subjective Allergies: Coded Allergies: VANCOMYCIN (Unverified Allergy, Unknown, 08/02/19) Subjective Above noted d/w RN tolerating TF Objective Last 24 Hour Vital Signs Date Time Temp Pulse Resp B/P (MAP) Pulse Ox O2 Delivery O2 Flow Rate FiO2 08/26/19 21:36 82 18 40 08/26/19 21:00 40 08/26/19 20:00 Mechanical Ventilator Mechanical Ventilator Mechanical Ventilator Mechanical Ventilator 08/26/19 18:44 117/68 08/26/19 18:43 117/68 08/26/19 18:00 61 117/68 08/26/19 18:00 Mechanical Ventilator Mechanical Ventilator Mechanical Ventilator Mechanical Ventilator 08/26/19 18:00 60 21 122/94 (103) 100 08/26/19 17:20 64 18 40 08/26/19 17:00 65 25 128/65 (86) 92 08/26/19 16:00 72 08/26/19 16:00 98.9 76 20 127/67 (87) 100 08/26/19 16:00 Mechanical Ventilator Mechanical Ventilator Mechanical Ventilator Mechanical Ventilator 08/26/19 16:00 40 08/26/19 15:00 74 19 124/72 (89) 96 08/26/19 14:45 65 20 40 08/26/19 14:00 71 25 100 08/26/19 13:06 76 19 40 08/26/19 13:00 75 20 121/77 (92) 99 08/26/19 12:00 40 08/26/19 12:00 98.2 62 25 116/60 (78) 100 58 08/26/19 12:00 Mechanical Ventilator Mechanical Ventilator Mechanical Ventilator Mechanical Ventilator 08/26/19 12:00 62 08/26/19 11:06 75 19 40 08/26/19 11:00 71 20 137/75 (95) 92 08/26/19 10:00 65 21 148/67 (94) 100 60 08/26/19 09:58 98 08/26/19 09:05 68 18 40 08/26/19 09:00 68 21 134/111 (119) 99 08/26/19 09:00 40 08/26/19 08:45 68 133/75 08/26/19 08:00 69 08/26/19 08:00 Mechanical Ventilator Mechanical Ventilator Mechanical Ventilator Mechanical Ventilator 08/26/19 08:00 40 08/26/19 08:00 98.3 66 23 151/127 (135) 100 70 08/26/19 07:00 58 19 128/65 (86) 100 08/26/19 06:57 64 18 40 08/26/19 06:30 66 20 08/26/19 06:00 60 21 128/63 (84) 100 08/26/19 05:44 142/70 08/26/19 05:44 142/70 08/26/19 05:05 67 18 40 08/26/19 05:00 65 24 142/70 (94) 97 08/26/19 04:00 40 08/26/19 04:00 Mechanical Ventilator Mechanical Ventilator Mechanical Ventilator Mechanical Ventilator 08/26/19 04:00 97.9 61 18 135/69 (91) 100 08/26/19 03:15 76 08/26/19 03:05 66 19 40 08/26/19 03:00 62 18 124/62 (82) 100 08/26/19 02:00 71 19 148/83 (104) 99 08/26/19 01:30 67 18 40 08/26/19 01:00 68 21 127/64 (85) 100 08/26/19 00:03 129/66 08/26/19 00:03 129/66 08/26/19 00:00 97.8 66 22 129/66 (87) 100 08/26/19 00:00 40 08/26/19 00:00 Mechanical Ventilator Mechanical Ventilator Mechanical Ventilator Mechanical Ventilator 08/25/19 23:30 72 18 40 08/25/19 23:18 66 08/25/19 23:00 75 20 141/73 (95) 100 08/25/19 22:00 71 21 119/64 (82) 100 Intake and Output 08/25/19 08/26/19 19:00 07:00 Intake Total 620 ml 275 ml Balance 620 ml 275 ml Intake Free Water 100 ml 50 ml IV Total 100 ml Tube Feeding 420 ml 175 ml Other 50 ml # Voids 5 2 # Bowel Movements 3 2 Laboratory Tests 08/26/19 09:05: White Blood Count 5.8, Red Blood Count 3.29L, Hemoglobin 9.9L, Hematocrit 29.7L , Mean Corpuscular Volume 90, Mean Corpuscular Hemoglobin 30.3, Mean Corpuscular Hemoglobin Concent 33.5, Red Cell Distribution Width 16.5H, Platelet Count 450, Mean Platelet Volume 6.2L, Neutrophils (%) (Auto) 45.9, Lymphocytes (%) (Auto) 44.9, Monocytes (%) (Auto) 7.2, Eosinophils (%) (Auto) 0.9, Basophils (%) (Auto) 1.2, Sodium Level 135L, Potassium Level 3.8, Chloride Level 99, Carbon Dioxide Level 26, Anion Gap 11, Blood Urea Nitrogen 48H, Creatinine 3.6H, Estimat Glomerular Filtration Rate 12.2, Glucose Level 97, Calcium Level 8.6, Total Bilirubin 0.4, Aspartate Amino Transf (AST/SGOT) 24, Alanine Aminotransferase (ALT/SGPT) 10L, Alkaline Phosphatase 148H, Total Protein 5.7L, Albumin 1.6L, Globulin 4.1, Albumin/Globulin Ratio 0.4L Height (Feet): 5 Height (Inches): 4.00 Weight (Pounds): 115 Objective Debilitated frail woman NCAT (+) ETT supple scattered ronchi RR abd soft ND NT, (+) GT no edema Cristy Elizondo MD Aug 26, 2019 21:59
[2019-08-27] VITALS (26 sets, daily range): BP systolic 117–153; BP diastolic 50–102
[2019-08-27] MEDS: HydrALAZINE 25mg tab NG SCH ×4 (00:22→18:34)
[2019-08-27] MEDS: Nitroglycerin 2% oint pkt TOPIC SCH ×4 (00:22→18:33)
[2019-08-27 08:21] LABS: BASOPHILS % (AUTO) 2.6 % (0.0-2.0); EOSINOPHILS % (AUTO) 1.1 % (0.0-3.0); HEMATOCRIT 28.7 % (37.0-47.0); HEMOGLOBIN 9.8 G/DL (12.0-16.0); LYMPHOCYTES % (AUTO) 41.1 % (20.0-45.0); MEAN CORPUSCULAR VOLUME 89 FL (80-99); MONOCYTES % (AUTO) 8.5 % (1.0-10.0); NEUTROPHILS % (AUTO) 46.7 % (45.0-75.0); PLATELET COUNT 504 K/UL (150-450); RED BLOOD COUNT 3.21 M/UL (4.20-5.40); WHITE BLOOD COUNT 4.9 K/UL (4.8-10.8)
[2019-08-27 08:56] LABS: ANION GAP 6 mmol/L (5-15); BLOOD UREA NITROGEN 33 mg/dL (7-18); CALCIUM 8.8 MG/DL (8.5-10.1); CARBON DIOXIDE 31 MMOL/L (21-32); CHLORIDE 104 MMOL/L (98-107); CREATININE 2.5 MG/DL (0.55-1.30); POTASSIUM 3.4 MMOL/L (3.5-5.1); SODIUM 141 MMOL/L (136-145)
--- NOTE | 2019-08-27 08:59 | Critical Care Progress Note ---
Assessment/Plan Assessment/Plan respiratory failure hemoptysis resolved hypoxemia chronic renal failure toxic met encephalopathy severe protein calorie malnutrition cachexia left lung whiteout/collapse, improved with intubation s/p intubation anemia pulmonary edema with elevated BNP + pleural effusion PLAN thoracentesis ordered care noted and reviewed poor volumes on weaning failed weaning past few days- 3rd spacing d/w family as to trach vs terminal care keep negative as able and increase protein levels antibiotics noted monitor CXR and review elevated head and monitor ROM watch fluid status nutrition as able off load as able ROM as able ICU care and management critical at present requires ICU management and close follow up care feeds as able and monitor residuals medications/laboratory data/nursing notes/ICU care reviewed in detail note reviewed and edited care discussed with RN and RT ICU time spent >40 minutes coordinating care Critical Care - Subjective Interval Events: on vent poor LOC awaiting tap in ICU remains poorly LOC ROS Limited/Unobtainable: Yes Condition: critical EKG Rhythm: Sinus Rhythm Residuals: minimal Tube Feeding Tolerated: yes I&O: Intake and Output 08/26/19 08/27/19 19:00 07:00 Intake Total 250 ml 2415 ml Output Total 1000 ml Balance 250 ml 1415 ml Intake Free Water 100 ml IV Total 100 ml Tube Feeding 120 ml 315 ml Hemodialysis 2000 ml Other 30 ml Hemodialysis UF 1000 ml # Voids 2 # Bowel Movements 5 1 Critical Care - Objective ET-Tube: 7.0 ET Position: 21 Last 24 Hour Vital Signs Date Time Temp Pulse Resp B/P (MAP) Pulse Ox O2 Delivery O2 Flow Rate FiO2 08/27/19 08:46 66 138/67 08/27/19 07:47 79 22 40 08/27/19 07:00 71 21 144/63 (90) 100 08/27/19 06:30 63 20 08/27/19 06:11 153/78 08/27/19 06:11 153/78 08/27/19 06:00 64 21 136/70 (92) 100 08/27/19 05:22 66 20 40 08/27/19 05:00 68 19 153/78 (103) 99 08/27/19 04:00 Mechanical Ventilator Mechanical Ventilator Mechanical Ventilator Mechanical Ventilator 08/27/19 04:00 40 08/27/19 04:00 98.0 70 22 144/73 (96) 100 08/27/19 04:00 67 08/27/19 03:34 69 20 40 08/27/19 03:00 68 25 148/68 (94) 100 08/27/19 02:00 70 21 152/66 (94) 100 08/27/19 01:01 75 18 40 08/27/19 01:01 75 18 100 Mechanical Ventilator 40 08/27/19 01:00 68 21 141/69 (93) 72 08/27/19 00:22 132/76 08/27/19 00:22 132/76 08/27/19 00:00 72 08/27/19 00:00 97.8 72 21 131/66 (87) 100 08/27/19 00:00 Mechanical Ventilator Mechanical Ventilator Mechanical Ventilator Mechanical Ventilator 08/26/19 23:00 74 24 135/65 (88) 96 08/26/19 22:44 67 18 40 08/26/19 22:00 60 22 127/54 (78) 100 08/26/19 21:36 82 18 40 08/26/19 21:00 40 08/26/19 21:00 82 22 123/66 (85) 93 08/26/19 20:00 Mechanical Ventilator Mechanical Ventilator Mechanical Ventilator Mechanical Ventilator 08/26/19 20:00 97.9 82 23 116/64 (81) 100 08/26/19 20:00 84 08/26/19 19:00 60 21 130/70 (90) 99 08/26/19 18:44 117/68 08/26/19 18:43 117/68 08/26/19 18:00 61 117/68 08/26/19 18:00 Mechanical Ventilator Mechanical Ventilator Mechanical Ventilator Mechanical Ventilator 08/26/19 18:00 60 21 122/94 (103) 100 08/26/19 17:20 64 18 40 08/26/19 17:00 65 25 128/65 (86) 92 08/26/19 16:00 72 08/26/19 16:00 98.9 76 20 127/67 (87) 100 08/26/19 16:00 Mechanical Ventilator Mechanical Ventilator Mechanical Ventilator Mechanical Ventilator 08/26/19 16:00 40 08/26/19 15:00 74 19 124/72 (89) 96 08/26/19 14:45 65 20 40 08/26/19 14:00 71 25 100 08/26/19 13:06 76 19 40 08/26/19 13:00 75 20 121/77 (92) 99 08/26/19 12:00 40 08/26/19 12:00 98.2 62 25 116/60 (78) 100 58 08/26/19 12:00 Mechanical Ventilator Mechanical Ventilator Mechanical Ventilator Mechanical Ventilator 08/26/19 12:00 62 08/26/19 11:06 75 19 40 08/26/19 11:00 71 20 137/75 (95) 92 08/26/19 10:00 65 21 148/67 (94) 100 60 08/26/19 09:58 98 08/26/19 09:05 68 18 40 08/26/19 09:00 68 21 134/111 (119) 99 08/26/19 09:00 40 Labs: Labs Test 08/25/19 03:10 08/26/19 09:05 08/27/19 08:00 White Blood Count 7.3 K/UL (4.8-10.8) 5.8 K/UL (4.8-10.8) 4.9 K/UL (4.8-10.8) Red Blood Count 3.43 M/UL (4.20-5.40) 3.29 M/UL (4.20-5.40) 3.21 M/UL (4.20-5.40) Hemoglobin 10.4 G/DL (12.0-16.0) 9.9 G/DL (12.0-16.0) 9.8 G/DL (12.0-16.0) Hematocrit 31.1 % (37.0-47.0) 29.7 % (37.0-47.0) 28.7 % (37.0-47.0) Mean Corpuscular Volume 91 FL (80-99) 90 FL (80-99) 89 FL (80-99) Mean Corpuscular Hemoglobin 30.4 PG (27.0-31.0) 30.3 PG (27.0-31.0) 30.4 PG (27.0-31.0) Mean Corpuscular Hemoglobin Concent 33.5 G/DL (32.0-36.0) 33.5 G/DL (32.0-36.0) 34.0 G/DL (32.0-36.0) Red Cell Distribution Width 16.2 % (11.6-14.8) 16.5 % (11.6-14.8) 16.0 % (11.6-14.8) Platelet Count 444 K/UL (150-450) 450 K/UL (150-450) 504 K/UL (150-450) Mean Platelet Volume 7.1 FL (6.5-10.1) 6.2 FL (6.5-10.1) 6.3 FL (6.5-10.1) Neutrophils (%) (Auto) 44.6 % (45.0-75.0) 45.9 % (45.0-75.0) 46.7 % (45.0-75.0) Lymphocytes (%) (Auto) 46.7 % (20.0-45.0) 44.9 % (20.0-45.0) 41.1 % (20.0-45.0) Monocytes (%) (Auto) 6.1 % (1.0-10.0) 7.2 % (1.0-10.0) 8.5 % (1.0-10.0) Eosinophils (%) (Auto) 1.1 % (0.0-3.0) 0.9 % (0.0-3.0) 1.1 % (0.0-3.0) Basophils (%) (Auto) 1.5 % (0.0-2.0) 1.2 % (0.0-2.0) 2.6 % (0.0-2.0) Sodium Level 133 MMOL/L (136-145) 135 MMOL/L (136-145) Potassium Level 4.0 MMOL/L (3.5-5.1) 3.8 MMOL/L (3.5-5.1) Chloride Level 98 MMOL/L (98-107) 99 MMOL/L (98-107) Carbon Dioxide Level 27 MMOL/L (21-32) 26 MMOL/L (21-32) Anion Gap 8 mmol/L (5-15) 11 mmol/L (5-15) Blood Urea Nitrogen 40 mg/dL (7-18) 48 mg/dL (7-18) Creatinine 3.3 MG/DL (0.55-1.30) 3.6 MG/DL (0.55-1.30) Estimat Glomerular Filtration Rate 13.5 mL/min (>60) 12.2 mL/min (>60) Glucose Level 151 MG/DL (74-106) 97 MG/DL (74-106) Calcium Level 8.8 MG/DL (8.5-10.1) 8.6 MG/DL (8.5-10.1) Phosphorus Level 3.2 MG/DL (2.5-4.9) Magnesium Level 2.4 MG/DL (1.8-2.4) Total Bilirubin 0.4 MG/DL (0.2-1.0) 0.4 MG/DL (0.2-1.0) Aspartate Amino Transf (AST/SGOT) 22 U/L (15-37) 24 U/L (15-37) Alanine Aminotransferase (ALT/SGPT) 10 U/L (12-78) 10 U/L (12-78) Alkaline Phosphatase 194 U/L (46-116) 148 U/L (46-116) C-Reactive Protein, Quantitative 6.2 mg/dL (0.00-0.90) Pro-B-Type Natriuretic Peptide > 52402 pg/mL (0-125) Total Protein 6.0 G/DL (6.4-8.2) 5.7 G/DL (6.4-8.2) Albumin 1.6 G/DL (3.4-5.0) 1.6 G/DL (3.4-5.0) Globulin 4.4 g/dL 4.1 g/dL Albumin/Globulin Ratio 0.4 (1.0-2.7) 0.4 (1.0-2.7) Objective: WDWN NAD intubated reduced breath sounds bilaterally overall worse without rhonchi or wheeze [id number] without MRG NABS nontender no HSM no CCE contractures feeding tube in place no distention poorly responsive nonfocal cachectic reviewed and edited Accucheck: 102 Malcolm Cruz MD Aug 27, 2019 08:59
[2019-08-27 09:35] LABS: ALANINE AMINOTRANSFERASE 11 U/L (12-78); ALKALINE PHOSPHATASE 140 U/L (46-116); ASPARTATE AMINO TRANSFERASE 32 U/L (15-37); BILIRUBIN,DIRECT < 0.1 MG/DL (0.0-0.3); BILIRUBIN,TOTAL 0.4 MG/DL (0.2-1.0); PHOSPHORUS 3.1 MG/DL (2.5-4.9)
--- NOTE | 2019-08-27 09:57 | Nephrology Progress Note ---
Assessment/Plan Problem List: (1) ESRD (end stage renal disease) on dialysis (2) Malnutrition (3) Anemia in CKD (chronic kidney disease) (4) Hypotension (5) Thrombocytopenia (6) Sepsis Assessment: klebsiella in blood Assessment -Early sepsis with shock. -Healthcare-associated pneumonia. -Severe protein-calorie malnutrition. -Thrombocytopenia. - End-stage renal disease. - History of hypertension. - Bradycardia. - HypoThyroid Plan Waiting for family's decision regarding the change of CODE STATUS Last dialysis August 25 Due to her overall medical condition I favor DNR and comfort care Blood pressure fluctuating, will start hydralazine via NG tube for blood pressure Magnesium and potassium supplement intravenously as needed Patient underwent PEG placement August 16 patient remains intubated on ventilator Discussed with RN Aim to wean from ventilator or consider tracheostomy Permacath was removed on August 12 Dialysis 08/11 Transfusion as needed Patient had hematemesis meds IV as possible Surveillance blood cultures tomorrow Plan to put the permacath back in on Thursday if cultures are negative keep BP and BS in check Inflammatory markers per orders Subjective ROS Limited/Unobtainable: Yes Objective Objective Last 24 Hour Vital Signs Date Time Temp Pulse Resp B/P (MAP) Pulse Ox O2 Delivery O2 Flow Rate FiO2 08/27/19 09:12 69 22 40 08/27/19 08:46 66 138/67 08/27/19 07:47 79 22 40 08/27/19 07:00 71 21 144/63 (90) 100 08/27/19 06:30 63 20 08/27/19 06:11 153/78 08/27/19 06:11 153/78 08/27/19 06:00 64 21 136/70 (92) 100 08/27/19 05:22 66 20 40 08/27/19 05:00 68 19 153/78 (103) 99 08/27/19 04:00 Mechanical Ventilator Mechanical Ventilator Mechanical Ventilator Mechanical Ventilator 08/27/19 04:00 40 08/27/19 04:00 98.0 70 22 144/73 (96) 100 08/27/19 04:00 67 08/27/19 03:34 69 20 40 08/27/19 03:00 68 25 148/68 (94) 100 08/27/19 02:00 70 21 152/66 (94) 100 08/27/19 01:01 75 18 40 08/27/19 01:01 75 18 100 Mechanical Ventilator 40 08/27/19 01:00 68 21 141/69 (93) 72 08/27/19 00:22 132/76 08/27/19 00:22 132/76 08/27/19 00:00 72 08/27/19 00:00 97.8 72 21 131/66 (87) 100 08/27/19 00:00 Mechanical Ventilator Mechanical Ventilator Mechanical Ventilator Mechanical Ventilator 08/26/19 23:00 74 24 135/65 (88) 96 08/26/19 22:44 67 18 40 08/26/19 22:00 60 22 127/54 (78) 100 08/26/19 21:36 82 18 40 08/26/19 21:00 40 08/26/19 21:00 82 22 123/66 (85) 93 08/26/19 20:00 Mechanical Ventilator Mechanical Ventilator Mechanical Ventilator Mechanical Ventilator 08/26/19 20:00 97.9 82 23 116/64 (81) 100 08/26/19 20:00 84 08/26/19 19:00 60 21 130/70 (90) 99 08/26/19 18:44 117/68 08/26/19 18:43 117/68 08/26/19 18:00 61 117/68 08/26/19 18:00 Mechanical Ventilator Mechanical Ventilator Mechanical Ventilator Mechanical Ventilator 08/26/19 18:00 60 21 122/94 (103) 100 08/26/19 17:20 64 18 40 08/26/19 17:00 65 25 128/65 (86) 92 08/26/19 16:00 72 08/26/19 16:00 98.9 76 20 127/67 (87) 100 08/26/19 16:00 Mechanical Ventilator Mechanical Ventilator Mechanical Ventilator Mechanical Ventilator 08/26/19 16:00 40 08/26/19 15:00 74 19 124/72 (89) 96 08/26/19 14:45 65 20 40 08/26/19 14:00 71 25 100 08/26/19 13:06 76 19 40 08/26/19 13:00 75 20 121/77 (92) 99 08/26/19 12:00 40 08/26/19 12:00 98.2 62 25 116/60 (78) 100 58 08/26/19 12:00 Mechanical Ventilator Mechanical Ventilator Mechanical Ventilator Mechanical Ventilator 08/26/19 12:00 62 08/26/19 11:06 75 19 40 08/26/19 11:00 71 20 137/75 (95) 92 08/26/19 10:00 65 21 148/67 (94) 100 60 08/26/19 09:58 98 Intake and Output 08/26/19 08/27/19 19:00 07:00 Intake Total 250 ml 2415 ml Output Total 1000 ml Balance 250 ml 1415 ml Intake Free Water 100 ml IV Total 100 ml Tube Feeding 120 ml 315 ml Hemodialysis 2000 ml Other 30 ml Hemodialysis UF 1000 ml # Voids 2 # Bowel Movements 5 1 Laboratory Tests 08/27/19 08:00: White Blood Count 4.9, Red Blood Count 3.21L, Hemoglobin 9.8L, Hematocrit 28.7L , Mean Corpuscular Volume 89, Mean Corpuscular Hemoglobin 30.4, Mean Corpuscular Hemoglobin Concent 34.0, Red Cell Distribution Width 16.0H, Platelet Count 504H, Mean Platelet Volume 6.3L, Neutrophils (%) (Auto) 46.7, Lymphocytes (%) (Auto) 41.1, Monocytes (%) (Auto) 8.5, Eosinophils (%) (Auto) 1.1, Basophils (%) (Auto) 2.6H, Sodium Level 141, Potassium Level 3.4L, Chloride Level 104, Carbon Dioxide Level 31, Anion Gap 6, Blood Urea Nitrogen 33H, Creatinine 2.5H, Estimat Glomerular Filtration Rate 18.6, Glucose Level 113H, Calcium Level 8.8, Phosphorus Level 3.1, Magnesium Level 2.4, Total Bilirubin 0.4, Direct Bilirubin < 0.1, Aspartate Amino Transf (AST/SGOT) 32, Alanine Aminotransferase (ALT/SGPT) 11L, Alkaline Phosphatase 140H, Total Protein 5.6L, Albumin 2.0L Height (Feet): 5 Height (Inches): 4.00 Weight (Pounds): 115 General Appearance: no apparent distress EENT: other - Remains intubated Cardiovascular: normal rate Respiratory/Chest: decreased breath sounds Abdomen: soft Objective no change William Blackwood MD Aug 27, 2019 09:57
[2019-08-27] MEDS ORDERED: Tubing IV Secondary IV ONE (09:59)
[2019-08-27] MEDS ORDERED: NS 275ml ONE (09:59)
--- NOTE | 2019-08-27 10:21 | General Progress Note ---
Assessment/Plan Problem List: (1) Failure to thrive (0-17) ICD Codes: R62.51 - Failure to thrive (0-17) SNOMED: 130171869 (2) Hypertensive kidney disease ICD Codes: I12.9 - Hypertensive chronic kidney disease with stage 1 through stage 4 chronic kidney disease, or unspecified chronic kidney disease SNOMED: 55005151 (3) Pneumonia ICD Codes: J18.9 - Pneumonia, unspecified organism SNOMED: 347976461 Qualifiers: Qualified Codes: J18.9 - Pneumonia, unspecified organism (4) ESRD (end stage renal disease) ICD Codes: N18.6 - End stage renal disease SNOMED: 13805893 (5) Septic arthritis ICD Codes: M00.9 - Pyogenic arthritis, unspecified SNOMED: 355541634 (6) Thrombocytopenia ICD Codes: D69.6 - Thrombocytopenia, unspecified SNOMED: 631912218 (7) Hypotension ICD Codes: I95.9 - Hypotension, unspecified SNOMED: 45618631 Qualifiers: Qualified Codes: I95.3 - Hypotension of hemodialysis (8) Malnutrition ICD Codes: E46 - Unspecified protein-calorie malnutrition SNOMED: 18334610 Status: stable, not improved, unchanged, deteriorating Assessment/Plan: cont resp care chest pt/suctioning resp rx tap effusion cont weaning- try simv No plans for trach. resp/volume status needs to be optimized as much as possible try tap effusion monitor plts iv PPI iv abx perm cath replacement HD bp rx critical and guarded tube feeds per gi will d/w family trach vs terminal extubation Subjective ROS Limited/Unobtainable: No Constitutional: Reports: malaise, weakness HEENT: Reports: no symptoms Cardiovascular: Reports: no symptoms Respiratory: Reports: shortness of breath, sputum Gastrointestinal/Abdominal: Reports: difficulty swallowing Genitourinary: Reports: no symptoms Neurologic/Psychiatric: Reports: anxiety Endocrine: Reports: no symptoms Hematologic/Lymphatic: Reports: anemia Allergies: Coded Allergies: VANCOMYCIN (Unverified Allergy, Unknown, 08/02/19) All Systems: reviewed and negative except above Subjective no events. on the vent. remains alert and awake. no fevers. alert. minimal congestion/secretions. cxr with mod pleural effusion. not able to wean yet. d/w . trach recommended Objective Last 24 Hour Vital Signs Date Time Temp Pulse Resp B/P (MAP) Pulse Ox O2 Delivery O2 Flow Rate FiO2 08/27/19 09:12 69 22 40 08/27/19 08:46 66 138/67 08/27/19 08:00 67 08/27/19 07:47 79 22 40 08/27/19 07:00 71 21 144/63 (90) 100 08/27/19 06:30 63 20 08/27/19 06:11 153/78 08/27/19 06:11 153/78 08/27/19 06:00 64 21 136/70 (92) 100 08/27/19 05:22 66 20 40 08/27/19 05:00 68 19 153/78 (103) 99 08/27/19 04:00 Mechanical Ventilator Mechanical Ventilator Mechanical Ventilator Mechanical Ventilator 08/27/19 04:00 40 08/27/19 04:00 98.0 70 22 144/73 (96) 100 08/27/19 04:00 67 08/27/19 03:34 69 20 40 08/27/19 03:00 68 25 148/68 (94) 100 08/27/19 02:00 70 21 152/66 (94) 100 08/27/19 01:01 75 18 40 08/27/19 01:01 75 18 100 Mechanical Ventilator 40 08/27/19 01:00 68 21 141/69 (93) 72 08/27/19 00:22 132/76 08/27/19 00:22 132/76 08/27/19 00:00 72 08/27/19 00:00 97.8 72 21 131/66 (87) 100 08/27/19 00:00 Mechanical Ventilator Mechanical Ventilator Mechanical Ventilator Mechanical Ventilator 08/26/19 23:00 74 24 135/65 (88) 96 08/26/19 22:44 67 18 40 08/26/19 22:00 60 22 127/54 (78) 100 08/26/19 21:36 82 18 40 08/26/19 21:00 40 08/26/19 21:00 82 22 123/66 (85) 93 08/26/19 20:00 Mechanical Ventilator Mechanical Ventilator Mechanical Ventilator Mechanical Ventilator 08/26/19 20:00 97.9 82 23 116/64 (81) 100 08/26/19 20:00 84 08/26/19 19:00 60 21 130/70 (90) 99 08/26/19 18:44 117/68 08/26/19 18:43 117/68 08/26/19 18:00 61 117/68 08/26/19 18:00 Mechanical Ventilator Mechanical Ventilator Mechanical Ventilator Mechanical Ventilator 08/26/19 18:00 60 21 122/94 (103) 100 08/26/19 17:20 64 18 40 08/26/19 17:00 65 25 128/65 (86) 92 08/26/19 16:00 72 08/26/19 16:00 98.9 76 20 127/67 (87) 100 08/26/19 16:00 Mechanical Ventilator Mechanical Ventilator Mechanical Ventilator Mechanical Ventilator 08/26/19 16:00 40 08/26/19 15:00 74 19 124/72 (89) 96 08/26/19 14:45 65 20 40 08/26/19 14:00 71 25 100 08/26/19 13:06 76 19 40 08/26/19 13:00 75 20 121/77 (92) 99 08/26/19 12:00 40 08/26/19 12:00 98.2 62 25 116/60 (78) 100 58 08/26/19 12:00 Mechanical Ventilator Mechanical Ventilator Mechanical Ventilator Mechanical Ventilator 08/26/19 12:00 62 08/26/19 11:06 75 19 40 08/26/19 11:00 71 20 137/75 (95) 92 Intake and Output 08/26/19 08/27/19 19:00 07:00 Intake Total 250 ml 2415 ml Output Total 1000 ml Balance 250 ml 1415 ml Intake Free Water 100 ml IV Total 100 ml Tube Feeding 120 ml 315 ml Hemodialysis 2000 ml Other 30 ml Hemodialysis UF 1000 ml # Voids 2 # Bowel Movements 5 1 Laboratory Tests 08/27/19 08:00: White Blood Count 4.9, Red Blood Count 3.21L, Hemoglobin 9.8L, Hematocrit 28.7L , Mean Corpuscular Volume 89, Mean Corpuscular Hemoglobin 30.4, Mean Corpuscular Hemoglobin Concent 34.0, Red Cell Distribution Width 16.0H, Platelet Count 504H, Mean Platelet Volume 6.3L, Neutrophils (%) (Auto) 46.7, Lymphocytes (%) (Auto) 41.1, Monocytes (%) (Auto) 8.5, Eosinophils (%) (Auto) 1.1, Basophils (%) (Auto) 2.6H, Sodium Level 141, Potassium Level 3.4L, Chloride Level 104, Carbon Dioxide Level 31, Anion Gap 6, Blood Urea Nitrogen 33H, Creatinine 2.5H, Estimat Glomerular Filtration Rate 18.6, Glucose Level 113H, Calcium Level 8.8, Phosphorus Level 3.1, Magnesium Level 2.4, Total Bilirubin 0.4, Direct Bilirubin < 0.1, Aspartate Amino Transf (AST/SGOT) 32, Alanine Aminotransferase (ALT/SGPT) 11L, Alkaline Phosphatase 140H, Total Protein 5.6L, Albumin 2.0L Height (Feet): 5 Height (Inches): 4.00 Weight (Pounds): 115 Objective General Appearance: WD/WN, awake/moaning. orally intubated Neck: supple Cardiovascular: normal rate Respiratory/Chest: rhonchi - bilaterally Abdomen: normal bowel sounds, non tender, soft, no organomegaly Edema: no edema noted Arm (L), no edema noted Arm (R), no edema noted Leg (L), no edema noted Leg (R), no edema noted Pedal (L), no edema noted Pedal (R), no edema noted Generalized Neurologic: disoriented, aphasia Nate Beltran MD Aug 27, 2019 10:20
--- NOTE | 2019-08-27 13:01 | Surgery Progress Note ---
Surgery Progress Note Subjective Procedure Performed Right Femoral Temporary Hemodialysis catheter Insertion Additional Comments ill appearing labs noted unable to wean vent still somewhat responsive Objective Last 24 Hour Vital Signs Date Time Temp Pulse Resp B/P (MAP) Pulse Ox O2 Delivery O2 Flow Rate FiO2 08/27/19 12:44 117/5 08/27/19 12:43 117/54 08/27/19 11:18 68 19 40 08/27/19 11:00 68 26 130/66 (87) 100 08/27/19 10:00 70 26 142/65 (90) 100 08/27/19 09:12 69 18 40 08/27/19 09:00 74 24 142/84 (103) 100 08/27/19 08:46 66 138/67 08/27/19 08:40 66 22 138/67 (90) 100 08/27/19 08:00 67 08/27/19 08:00 40 08/27/19 08:00 Mechanical Ventilator Mechanical Ventilator Mechanical Ventilator Mechanical Ventilator 08/27/19 08:00 98.4 78 26 139/69 (92) 100 08/27/19 07:47 79 22 40 08/27/19 07:00 71 21 144/63 (90) 100 08/27/19 06:30 63 20 08/27/19 06:11 153/78 08/27/19 06:11 153/78 08/27/19 06:00 64 21 136/70 (92) 100 08/27/19 05:22 66 20 40 08/27/19 05:00 68 19 153/78 (103) 99 08/27/19 04:00 Mechanical Ventilator Mechanical Ventilator Mechanical Ventilator Mechanical Ventilator 08/27/19 04:00 40 08/27/19 04:00 98.0 70 22 144/73 (96) 100 08/27/19 04:00 67 08/27/19 03:34 69 20 40 08/27/19 03:00 68 25 148/68 (94) 100 08/27/19 02:00 70 21 152/66 (94) 100 08/27/19 01:01 75 18 40 08/27/19 01:01 75 18 100 Mechanical Ventilator 40 08/27/19 01:00 68 21 141/69 (93) 72 08/27/19 00:22 132/76 08/27/19 00:22 132/76 08/27/19 00:00 72 08/27/19 00:00 97.8 72 21 131/66 (87) 100 08/27/19 00:00 Mechanical Ventilator Mechanical Ventilator Mechanical Ventilator Mechanical Ventilator 08/26/19 23:00 74 24 135/65 (88) 96 08/26/19 22:44 67 18 40 08/26/19 22:00 60 22 127/54 (78) 100 08/26/19 21:36 82 18 40 08/26/19 21:00 40 08/26/19 21:00 82 22 123/66 (85) 93 08/26/19 20:00 Mechanical Ventilator Mechanical Ventilator Mechanical Ventilator Mechanical Ventilator 08/26/19 20:00 97.9 82 23 116/64 (81) 100 08/26/19 20:00 84 08/26/19 19:00 60 21 130/70 (90) 99 08/26/19 18:44 117/68 08/26/19 18:43 117/68 08/26/19 18:00 61 117/68 08/26/19 18:00 Mechanical Ventilator Mechanical Ventilator Mechanical Ventilator Mechanical Ventilator 08/26/19 18:00 60 21 122/94 (103) 100 08/26/19 17:20 64 18 40 08/26/19 17:00 65 25 128/65 (86) 92 08/26/19 16:00 72 08/26/19 16:00 98.9 76 20 127/67 (87) 100 08/26/19 16:00 Mechanical Ventilator Mechanical Ventilator Mechanical Ventilator Mechanical Ventilator 08/26/19 16:00 40 08/26/19 15:00 74 19 124/72 (89) 96 08/26/19 14:45 65 20 40 08/26/19 14:00 71 25 100 08/26/19 13:06 76 19 40 I&O Intake and Output 08/26/19 08/27/19 19:00 07:00 Intake Total 250 ml 2415 ml Output Total 1000 ml Balance 250 ml 1415 ml Intake Free Water 100 ml IV Total 100 ml Tube Feeding 120 ml 315 ml Hemodialysis 2000 ml Other 30 ml Hemodialysis UF 1000 ml # Voids 2 # Bowel Movements 3 1 Dressing: other Wound: other Drains: other Cardiovascular: RSR Respiratory: decreased breath sounds Abdomen: soft, non-tender, present bowel sounds Extremities: no edema, no tenderness, no cyanosis Laboratory Tests Test 08/27/19 08:00 White Blood Count 4.9 K/UL (4.8-10.8) Red Blood Count 3.21 M/UL (4.20-5.40) L Hemoglobin 9.8 G/DL (12.0-16.0) L Hematocrit 28.7 % (37.0-47.0) L Mean Corpuscular Volume 89 FL (80-99) Mean Corpuscular Hemoglobin 30.4 PG (27.0-31.0) Mean Corpuscular Hemoglobin Concent 34.0 G/DL (32.0-36.0) Red Cell Distribution Width 16.0 % (11.6-14.8) H Platelet Count 504 K/UL (150-450) H Mean Platelet Volume 6.3 FL (6.5-10.1) L Neutrophils (%) (Auto) 46.7 % (45.0-75.0) Lymphocytes (%) (Auto) 41.1 % (20.0-45.0) Monocytes (%) (Auto) 8.5 % (1.0-10.0) Eosinophils (%) (Auto) 1.1 % (0.0-3.0) Basophils (%) (Auto) 2.6 % (0.0-2.0) H Sodium Level 141 MMOL/L (136-145) Potassium Level 3.4 MMOL/L (3.5-5.1) L Chloride Level 104 MMOL/L (98-107) Carbon Dioxide Level 31 MMOL/L (21-32) Anion Gap 6 mmol/L (5-15) Blood Urea Nitrogen 33 mg/dL (7-18) H Creatinine 2.5 MG/DL (0.55-1.30) H Estimat Glomerular Filtration Rate 18.6 mL/min (>60) Glucose Level 113 MG/DL (74-106) H Calcium Level 8.8 MG/DL (8.5-10.1) Phosphorus Level 3.1 MG/DL (2.5-4.9) Magnesium Level 2.4 MG/DL (1.8-2.4) Total Bilirubin 0.4 MG/DL (0.2-1.0) Direct Bilirubin < 0.1 MG/DL (0.0-0.3) Aspartate Amino Transf (AST/SGOT) 32 U/L (15-37) Alanine Aminotransferase (ALT/SGPT) 11 U/L (12-78) L Alkaline Phosphatase 140 U/L (46-116) H Total Protein 5.6 G/DL (6.4-8.2) L Albumin 2.0 G/DL (3.4-5.0) L Assessment Post-op Diagnosis same Plan Problems: (1) Malnutrition Assessment & Plan: DAILY ESTIMATED NEEDS: Needs based on ESRD+ HD, underweight, wound/ 39.5kg 35-40 kcals/kg 2242-1034 total kcals 1.25-1.8 g protein/kg 49-71 g total protein 20-22 mL/kg 790-869 total fluid mLs NUTRITION DIAGNOSIS: * Increased kcal and protein needs r/t underweight status, HD needs, wuond healing as evidenced by pt is underweight per guidelines, ESRD, on HD, admitted non-blanching erythema wounds @ BL heels and sacrum * Swallowing difficulty R/T dysphagia as evidenced by LICENSED AND CERTIFIED MIDWIFE recommends temporary nonoral feeding at this time, s/p NGT insertion, on NGT feeding-> now s/p self removal, NPO. CURRENT TF:NPO PO DIET RECOMMENDATIONS: WHEN SAFE FOR ORAL DIET -> renal/ texture per LICENSED AND CERTIFIED MIDWIFE ENTERAL NUTRITION RECOMMENDATIONS: W/ GI access: Nepro @ 35ml/hr x 22 hrs to provide 770ml, 1386kcal, 62g prot, 560ml free water * W/ GI access, resume TF on Nepro * Initiate Nepro @ 15ml/hr x 6 hrs, advance 10ml q 4-6 hrs as tolerated to goal rate. * Hold 1 hour before and after Synthroid med * HOB over 30 degrees/ water flush per MD. ADDITIONAL RECOMMENDATIONS: 1) Calibrated bed scale wt for accurate CBW -> daily wt monitoring Per HD record: dry wt on 07/30=39.5kg (87lbs) 2) Wound care: (W/ GI access) add Nephorivte x 1 + Balta BID 3) Monitor NPO status: without GI access at this time, s/p pulling out NGT 4) Monitor for hypoglycemia while NPO 5) Monitor for continuity of HD (2) Septic arthritis Assessment & Plan: Pt presented on admission with generalized scaly rash . pt noted to be restless and scratching at skin. Bleeding from oral mucosa noted. Joint deformity noted to R shoulder. Surgical incision approximated with 11 sutures. Erythema but no exudate,or elevation in skin temp at site of incision. Historical incision R hip that is tunneled.Small amt seropurulent exudate noted. Periwound is erythematous,but no elevation in skin temp noted. No odor noted. Non-blanching erythema noted to sacrum. Perianal area is erythematous and excoriated. L heel is boggy with non-blanching erythema. R heel is soft with non-blanching erythema. No evidence of skin breakdown to all other bony prominences. Tx.plan: Cover R shoulder with Drsg and change daily and prn. Cleanse R hip wound with Saline. Apply Therahoney.Apply Cavilon Skin Barrier periwound. Cover with Optifoam drsg. Change every 3 days and prn. Apply Moisture Barrier Paste to perianal area and buttocks. Cover Sacrum with Optifoam drsg. Change every 3 days and prn. Apply Cavilon Skin Barrier to both heels. Cover each heel with Optifoam drsg. Change every 7 days and prn. APM/ELVIA Mattress overlay. Reposition at least every 2hours or as tolerated. Off-load heels with pillow. HD cath necessary HD as renal likely will need intubation (3) Wound, open, hip or thigh with complication Assessment & Plan: slow healing will need nutritional optimization difficult ng tube peg when stable sutures removed from right shoulder comfortable wean vent may need trach (4) Abscess of right hip (5) possible septic arthritis Camilo James Aug 27, 2019 13:01
--- NOTE | 2019-08-27 17:19 | General Progress Note ---
Assessment/Plan Status: stable, not improved, unchanged, deteriorating Assessment/Plan: Assessment - Severe ulcerative esophagitis on endoscopy - on BID PPI - Resp failure --> now intubated - thrombocytopenia --> resolved - Renal failure --> now on HD, stablized - aspiration risk --> s/p PEG - anemia - bradycardia - Poor prognosis Recommendations - Continue TF - reduce water flushes - elevate HOB - monitor H&H Subjective Allergies: Coded Allergies: VANCOMYCIN (Unverified Allergy, Unknown, 08/02/19) Subjective Above noted d/w RN tolerating TF Objective Last 24 Hour Vital Signs Date Time Temp Pulse Resp B/P (MAP) Pulse Ox O2 Delivery O2 Flow Rate FiO2 08/27/19 16:00 97.8 74 21 135/54 (81) 99 08/27/19 16:00 77 08/27/19 15:07 68 18 40 08/27/19 15:00 66 22 137/72 (93) 99 08/27/19 14:00 65 18 125/56 (79) 100 08/27/19 13:00 70 23 117/54 (75) 100 08/27/19 12:44 117/5 08/27/19 12:43 117/54 08/27/19 12:00 70 24 133/60 (84) 100 08/27/19 12:00 40 08/27/19 12:00 79 08/27/19 12:00 Mechanical Ventilator Mechanical Ventilator Mechanical Ventilator Mechanical Ventilator 08/27/19 11:18 68 19 40 08/27/19 11:00 68 26 130/66 (87) 100 08/27/19 10:00 70 26 142/65 (90) 100 08/27/19 09:12 69 18 40 08/27/19 09:00 74 24 142/84 (103) 100 08/27/19 08:46 66 138/67 08/27/19 08:40 66 22 138/67 (90) 100 08/27/19 08:00 67 08/27/19 08:00 40 08/27/19 08:00 Mechanical Ventilator Mechanical Ventilator Mechanical Ventilator Mechanical Ventilator 08/27/19 08:00 98.4 78 26 139/69 (92) 100 08/27/19 07:47 79 22 40 08/27/19 07:00 71 21 144/63 (90) 100 08/27/19 06:30 63 20 3/14/20 06:11 153/78 08/27/19 06:11 153/78 08/27/19 06:00 64 21 136/70 (92) 100 08/27/19 05:22 66 20 40 08/27/19 05:00 68 19 153/78 (103) 99 08/27/19 04:00 Mechanical Ventilator Mechanical Ventilator Mechanical Ventilator Mechanical Ventilator 08/27/19 04:00 40 08/27/19 04:00 98.0 70 22 144/73 (96) 100 08/27/19 04:00 67 08/27/19 03:34 69 20 40 08/27/19 03:00 68 25 148/68 (94) 100 08/27/19 02:00 70 21 152/66 (94) 100 08/27/19 01:01 75 18 40 08/27/19 01:01 75 18 100 Mechanical Ventilator 40 08/27/19 01:00 68 21 141/69 (93) 72 08/27/19 00:22 132/76 08/27/19 00:22 132/76 08/27/19 00:00 72 08/27/19 00:00 97.8 72 21 131/66 (87) 100 08/27/19 00:00 Mechanical Ventilator Mechanical Ventilator Mechanical Ventilator Mechanical Ventilator 08/26/19 23:00 74 24 135/65 (88) 96 08/26/19 22:44 67 18 40 08/26/19 22:00 60 22 127/54 (78) 100 08/26/19 21:36 82 18 40 08/26/19 21:00 40 08/26/19 21:00 82 22 123/66 (85) 93 08/26/19 20:00 Mechanical Ventilator Mechanical Ventilator Mechanical Ventilator Mechanical Ventilator 08/26/19 20:00 97.9 82 23 116/64 (81) 100 08/26/19 20:00 84 08/26/19 19:00 60 21 130/70 (90) 99 08/26/19 18:44 117/68 08/26/19 18:43 117/68 08/26/19 18:00 61 117/68 08/26/19 18:00 Mechanical Ventilator Mechanical Ventilator Mechanical Ventilator Mechanical Ventilator 08/26/19 18:00 60 21 122/94 (103) 100 08/26/19 17:20 64 18 40 Intake and Output 08/26/19 08/27/19 19:00 07:00 Intake Total 250 ml 2415 ml Output Total 1000 ml Balance 250 ml 1415 ml Intake Free Water 100 ml IV Total 100 ml Tube Feeding 120 ml 315 ml Hemodialysis 2000 ml Other 30 ml Hemodialysis UF 1000 ml # Voids 2 # Bowel Movements 3 1 Laboratory Tests 08/27/19 08:00: White Blood Count 4.9, Red Blood Count 3.21L, Hemoglobin 9.8L, Hematocrit 28.7L , Mean Corpuscular Volume 89, Mean Corpuscular Hemoglobin 30.4, Mean Corpuscular Hemoglobin Concent 34.0, Red Cell Distribution Width 16.0H, Platelet Count 504H, Mean Platelet Volume 6.3L, Neutrophils (%) (Auto) 46.7, Lymphocytes (%) (Auto) 41.1, Monocytes (%) (Auto) 8.5, Eosinophils (%) (Auto) 1.1, Basophils (%) (Auto) 2.6H, Sodium Level 141, Potassium Level 3.4L, Chloride Level 104, Carbon Dioxide Level 31, Anion Gap 6, Blood Urea Nitrogen 33H, Creatinine 2.5H, Estimat Glomerular Filtration Rate 18.6, Glucose Level 113H, Calcium Level 8.8, Phosphorus Level 3.1, Magnesium Level 2.4, Total Bilirubin 0.4, Direct Bilirubin < 0.1, Aspartate Amino Transf (AST/SGOT) 32, Alanine Aminotransferase (ALT/SGPT) 11L, Alkaline Phosphatase 140H, Total Protein 5.6L, Albumin 2.0L Height (Feet): 5 Height (Inches): 4.00 Weight (Pounds): 112 Objective Debilitated frail woman NCAT (+) ETT supple scattered ronchi RR abd soft ND NT, (+) GT no edema Cristy Elizondo MD Aug 27, 2019 17:19
[2019-08-27] MEDS: Dyna-Hex 2% Top Sol 2oz TOPIC SCH (20:47)
--- NOTE | 2019-08-27 23:36 | Hematology/Onc Progress Note ---
Assessment/Plan Assessment/Plan # Thrombocytopenia - potential causes multifactorial, evaluate liver and viral etiologies to begin, in this case due to sepsis with septic shock also with cirrhosis and liver disease --> Hep panel and HIV ordered -> neg --> US abd to evaluate for cirrhosis and hsm ordered --> reviewed --> Peripheral smear ordered to evaluate for blasts /schistocytes --> abx and other meds have been reviewed --> ok for ppx if plt >50k w/ either heparin or lovenox --> Transfuse if Plt < 20k and fever, or if Plt < 10k without fever --> okay for permacath change once plt better--> for 08/14 --> plt trend: 43-->83-->237k-->292-->341-->315-->388 -->444 # Anemia of chronic disease due to underlying chronic medical issues, multifactorial v Gi bleed --> Anemia workup has been ordered, rule out gi bleed --> No evidence of hemolysis is noted, peripheral smear has been reviewed. --> Hgb goal >7. Transfuse prn. --> Epogen has been started --> HOLD OFF IRON ferritin is >1000 --> Medications have been reviewed --> low threshold for gi evaluation in case has occult + --> hgb 9-->6.7-->9.2 -->10.5-->10.6 -->10.7-->10-->10.5->9.8 --> blood tx: 08/11 # Early sepsis with shock. --> abx as per id, recs noted --> pressors as needed # Healthcare-associated pneumonia. --> recs reviewed --> abx: jung/micafungin-->jung --> 08/24 us chest: moderate left pleural effusion # Severe protein-calorie malnutrition. --> nutritional support # End-stage renal disease --> had as renal hd --> with permacath # History of hypertension. --> per cards, now with Bradycardia. # resp failure s/p vent/trach # HypoThyroid # Ngt feedings # Dvt ppx scd's The timing of this note does not necessarily reflect the time of the patient was seen. Greatly appreciate consultation. Subjective Constitutional: Denies: no symptoms, chills, fever, malaise, weakness, other HEENT: Denies: no symptoms, eye pain, blurred vision, tearing, double vision, ear pain, ear discharge, nose pain, nose congestion, throat pain, throat swelling, mouth pain, mouth swelling, other Cardiovascular: Denies: no symptoms, chest pain, edema, irregular heart rate, lightheadedness, palpitations, syncope, other Respiratory: Denies: no symptoms, cough, shortness of breath, SOB with excertion, SOB at rest, sputum, wheezing, other Gastrointestinal/Abdominal: Denies: no symptoms, abdomen distended, abdominal pain, black stools, tarry stools, blood in stool, constipated, diarrhea, difficulty swallowing, nausea, poor appetite, poor fluid intake, rectal bleeding , vomiting, other Genitourinary: Denies: no symptoms, burning, discharge, frequency, flank pain, hematuria, incontinence, pain, urgency, other Neurologic/Psychiatric: Denies: no symptoms, anxiety, depressed, emotional problems, headache, numbness, paresthesia, pre-existing deficit, seizure, tingling, tremors, weakness, other Endocrine: Denies: no symptoms, excessive sweating, flushing, intolerance to cold, intolerance to heat, increased hunger, increased thirst, increased urine, unexplained weight gain, unexplained weight loss, other Allergies: Coded Allergies: VANCOMYCIN (Unverified Allergy, Unknown, 08/02/19) Subjective 08/11: no bleeding or chills, labs reviewed, no major bleeding, plt less than 50k 08/12: icu, s/p blood, hgb improved to 9.2, 08/14: icu, pending consent for thora and permacath, labs reviewed 08/15: new permacath placed, no bleeding, for hd, plt much improved, started lovenox sq 08/16: ett to be adjusted, bp on high end, micafungin started, possible bronch 08/17: weaning as per pulm, no events otherwise, labs noted 08/18: no events no bleeding, remains confused on vent, for hd 08/20: icu, failed to wean, labs reviewed, jung 08/21: resting in bed, no overnight events, labs reviewed 08/22: awake, confused, restraints, no overnight events 08/23: no events, no bleeding, on ppi bid 08/24: icu, failed to wean, labs reviewed 08/25: no overnight events, us chest, restraints, afebrile 08/26 difficult in weaning, nad, seen by surg, pulm labs noted Objective Objective Current Medications Medications (Trade) Dose Ordered Sig/Javier Route PRN Reason Start Time Stop Time Status Last Admin Dose Admin Albuterol/ Ipratropium (Albuterol/ Ipratropium) 3 ml Q4H PRN HHN Shortness of Breath 08/25/19 09:30 08/30/19 09:29 Amlodipine Besylate (Norvasc) 5 mg BID NG 08/23/19 01:45 09/22/19 01:44 08/27/19 18:34 Atropine Sulfate (Atropine) 1 mg Q4H PRN IVP Per rx protocol 08/13/19 08:30 09/12/19 08:29 Chlorhexidine Gluconate (Nae-Hex 2%) 1 applic DAILY@2000 TOPIC 08/15/19 20:00 09/14/19 19:59 08/27/19 20:47 Dextrose (Dextrose 50%) 50 ml Q30M PRN IV Hypoglycemia 08/11/19 10:30 09/04/19 17:44 08/22/19 15:46 Diphenhydramine HCl (Benadryl) 50 mg Q4H PRN IVP Itching 08/09/19 14:30 09/08/19 14:29 08/13/19 02:39 Epoetin Thomas (Epoetin Thomas(ESRD on dialysis)) 4,000 unit THU-THU-THU SUBQ 08/12/19 21:00 09/11/19 20:59 08/26/19 21:41 Fluconazole/ Sodium Chloride 100 ml @ 100 mls/hr Q24H IV 08/18/19 13:00 08/29/19 23:59 08/27/19 12:43 Hydralazine HCl (Apresoline) 10 mg Q4H PRN IV For High Blood Pressure 08/18/19 12:44 09/17/19 12:43 08/22/19 09:22 Hydralazine HCl (Apresoline) 25 mg Q6HR NG 08/23/19 06:00 4/9/20 05:59 08/27/19 18:34 Lansoprazole (Prevacid) 30 mg BID GT 08/19/19 09:00 09/18/19 08:59 08/27/19 18:34 Levothyroxine Sodium (Synthroid) 50 mcg DAILY@0630 ORAL 08/25/19 06:30 09/24/19 06:29 08/27/19 06:15 Metoclopramide HCl (Reglan) 5 mg Q8H PRN IVP Nausea & Vomiting 08/09/19 12:39 09/08/19 12:38 Nitroglycerin (Nitro-Bid) 1 inch Q6HR TOPIC 08/09/19 12:39 09/08/19 12:38 08/27/19 18:33 Last 24 Hour Vital Signs Date Time Temp Pulse Resp B/P (MAP) Pulse Ox O2 Delivery O2 Flow Rate FiO2 08/27/19 23:12 73 19 40 08/27/19 22:00 70 22 141/91 (108) 100 08/27/19 21:03 65 18 40 08/27/19 21:00 61 19 128/81 (97) 100 08/27/19 20:00 Mechanical Ventilator Mechanical Ventilator Mechanical Ventilator Mechanical Ventilator 08/27/19 20:00 40 08/27/19 20:00 59 08/27/19 20:00 99.8 60 22 138/102 (114) 100 08/27/19 19:00 55 18 100 08/27/19 18:50 63 18 40 08/27/19 18:34 63 135/63 08/27/19 18:34 135/63 08/27/19 18:33 135/63 08/27/19 18:00 57 18 135/63 (87) 100 08/27/19 17:25 68 18 40 08/27/19 17:00 58 22 136/74 (94) 99 08/27/19 16:30 66 22 137/72 (93) 99 08/27/19 16:00 40 08/27/19 16:00 97.8 74 21 135/54 (81) 99 08/27/19 16:00 77 08/27/19 16:00 Mechanical Ventilator Mechanical Ventilator Mechanical Ventilator Mechanical Ventilator 08/27/19 15:07 68 18 40 08/27/19 15:00 66 22 137/72 (93) 99 08/27/19 14:00 65 18 125/56 (79) 100 08/27/19 13:00 70 23 117/54 (75) 100 08/27/19 12:44 117/5 08/27/19 12:43 117/54 08/27/19 12:00 70 24 133/60 (84) 100 08/27/19 12:00 40 08/27/19 12:00 79 08/27/19 12:00 Mechanical Ventilator Mechanical Ventilator Mechanical Ventilator Mechanical Ventilator 08/27/19 11:18 68 19 40 08/27/19 11:00 68 26 130/66 (87) 100 08/27/19 10:00 70 26 142/65 (90) 100 08/27/19 09:12 69 18 40 08/27/19 09:00 74 24 142/84 (103) 100 08/27/19 08:46 66 138/67 08/27/19 08:40 66 22 138/67 (90) 100 08/27/19 08:00 67 08/27/19 08:00 40 08/27/19 08:00 Mechanical Ventilator Mechanical Ventilator Mechanical Ventilator Mechanical Ventilator 08/27/19 08:00 98.4 78 26 139/69 (92) 100 08/27/19 07:47 79 22 40 08/27/19 07:00 71 21 144/63 (90) 100 08/27/19 06:30 63 20 08/27/19 06:11 153/78 08/27/19 06:11 153/78 08/27/19 06:00 64 21 136/70 (92) 100 08/27/19 05:22 66 20 40 08/27/19 05:00 68 19 153/78 (103) 99 08/27/19 04:00 Mechanical Ventilator Mechanical Ventilator Mechanical Ventilator Mechanical Ventilator 08/27/19 04:00 40 08/27/19 04:00 98.0 70 22 144/73 (96) 100 08/27/19 04:00 67 08/27/19 03:34 69 20 40 08/27/19 03:00 68 25 148/68 (94) 100 08/27/19 02:00 70 21 152/66 (94) 100 08/27/19 01:01 75 18 40 08/27/19 01:01 75 18 100 Mechanical Ventilator 40 08/27/19 01:00 68 21 141/69 (93) 72 08/27/19 00:22 132/76 08/27/19 00:22 132/76 08/27/19 00:00 72 08/27/19 00:00 97.8 72 21 131/66 (87) 100 08/27/19 00:00 Mechanical Ventilator Mechanical Ventilator Mechanical Ventilator Mechanical Ventilator 08/26/19 23:00 74 24 135/65 (88) 96 08/26/19 22:44 67 18 40 08/26/19 22:00 60 22 127/54 (78) 100 08/26/19 21:36 82 18 40 08/26/19 21:00 40 08/26/19 21:00 82 22 123/66 (85) 93 08/26/19 20:00 Mechanical Ventilator Mechanical Ventilator Mechanical Ventilator Mechanical Ventilator 08/26/19 20:00 97.9 82 23 116/64 (81) 100 08/26/19 20:00 84 08/26/19 19:00 60 21 130/70 (90) 99 08/26/19 18:44 117/68 08/26/19 18:43 117/68 08/26/19 18:00 61 117/68 08/26/19 18:00 Mechanical Ventilator Mechanical Ventilator Mechanical Ventilator Mechanical Ventilator 08/26/19 18:00 60 21 122/94 (103) 100 08/26/19 17:20 64 18 40 08/26/19 17:00 65 25 128/65 (86) 92 08/26/19 16:00 72 08/26/19 16:00 98.9 76 20 127/67 (87) 100 08/26/19 16:00 Mechanical Ventilator Mechanical Ventilator Mechanical Ventilator Mechanical Ventilator 08/26/19 16:00 40 08/26/19 15:00 74 19 124/72 (89) 96 08/26/19 14:45 65 20 40 08/26/19 14:00 71 25 100 08/26/19 13:06 76 19 40 08/26/19 13:00 75 20 121/77 (92) 99 08/26/19 12:00 40 08/26/19 12:00 98.2 62 25 116/60 (78) 100 58 08/26/19 12:00 Mechanical Ventilator Mechanical Ventilator Mechanical Ventilator Mechanical Ventilator 08/26/19 12:00 62 08/26/19 11:06 75 19 40 08/26/19 11:00 71 20 137/75 (95) 92 08/26/19 10:00 65 21 148/67 (94) 100 60 08/26/19 09:58 98 08/26/19 09:05 68 18 40 08/26/19 09:00 68 21 134/111 (119) 99 08/26/19 09:00 40 08/26/19 08:45 68 133/75 08/26/19 08:00 69 08/26/19 08:00 Mechanical Ventilator Mechanical Ventilator Mechanical Ventilator Mechanical Ventilator 08/26/19 08:00 40 08/26/19 08:00 98.3 66 23 151/127 (135) 100 70 08/26/19 07:00 58 19 128/65 (86) 100 08/26/19 06:57 64 18 40 08/26/19 06:30 66 20 08/26/19 06:00 60 21 128/63 (84) 100 08/26/19 05:44 142/70 08/26/19 05:44 142/70 08/26/19 05:05 67 18 40 08/26/19 05:00 65 24 142/70 (94) 97 08/26/19 04:00 40 08/26/19 04:00 Mechanical Ventilator Mechanical Ventilator Mechanical Ventilator Mechanical Ventilator 08/26/19 04:00 97.9 61 18 135/69 (91) 100 08/26/19 03:15 76 08/26/19 03:05 66 19 40 08/26/19 03:00 62 18 124/62 (82) 100 08/26/19 02:00 71 19 148/83 (104) 99 08/26/19 01:30 67 18 40 08/26/19 01:00 68 21 127/64 (85) 100 08/26/19 00:03 129/66 08/26/19 00:03 129/66 08/26/19 00:00 97.8 66 22 129/66 (87) 100 08/26/19 00:00 40 08/26/19 00:00 Mechanical Ventilator Mechanical Ventilator Mechanical Ventilator Mechanical Ventilator Intake and Output 08/26/19 08/27/19 19:00 07:00 Intake Total 250 ml 2415 ml Output Total 1000 ml Balance 250 ml 1415 ml Intake Free Water 100 ml IV Total 100 ml Tube Feeding 120 ml 315 ml Hemodialysis 2000 ml Other 30 ml Hemodialysis UF 1000 ml # Voids 2 # Bowel Movements 3 1 Labs Test 08/25/19 03:10 08/26/19 09:05 08/27/19 08:00 White Blood Count 7.3 K/UL (4.8-10.8) 5.8 K/UL (4.8-10.8) 4.9 K/UL (4.8-10.8) Red Blood Count 3.43 M/UL (4.20-5.40) 3.29 M/UL (4.20-5.40) 3.21 M/UL (4.20-5.40) Hemoglobin 10.4 G/DL (12.0-16.0) 9.9 G/DL (12.0-16.0) 9.8 G/DL (12.0-16.0) Hematocrit 31.1 % (37.0-47.0) 29.7 % (37.0-47.0) 28.7 % (37.0-47.0) Mean Corpuscular Volume 91 FL (80-99) 90 FL (80-99) 89 FL (80-99) Mean Corpuscular Hemoglobin 30.4 PG (27.0-31.0) 30.3 PG (27.0-31.0) 30.4 PG (27.0-31.0) Mean Corpuscular Hemoglobin Concent 33.5 G/DL (32.0-36.0) 33.5 G/DL (32.0-36.0) 34.0 G/DL (32.0-36.0) Red Cell Distribution Width 16.2 % (11.6-14.8) 16.5 % (11.6-14.8) 16.0 % (11.6-14.8) Platelet Count 444 K/UL (150-450) 450 K/UL (150-450) 504 K/UL (150-450) Mean Platelet Volume 7.1 FL (6.5-10.1) 6.2 FL (6.5-10.1) 6.3 FL (6.5-10.1) Neutrophils (%) (Auto) 44.6 % (45.0-75.0) 45.9 % (45.0-75.0) 46.7 % (45.0-75.0) Lymphocytes (%) (Auto) 46.7 % (20.0-45.0) 44.9 % (20.0-45.0) 41.1 % (20.0-45.0) Monocytes (%) (Auto) 6.1 % (1.0-10.0) 7.2 % (1.0-10.0) 8.5 % (1.0-10.0) Eosinophils (%) (Auto) 1.1 % (0.0-3.0) 0.9 % (0.0-3.0) 1.1 % (0.0-3.0) Basophils (%) (Auto) 1.5 % (0.0-2.0) 1.2 % (0.0-2.0) 2.6 % (0.0-2.0) Sodium Level 133 MMOL/L (136-145) 135 MMOL/L (136-145) 141 MMOL/L (136-145) Potassium Level 4.0 MMOL/L (3.5-5.1) 3.8 MMOL/L (3.5-5.1) 3.4 MMOL/L (3.5-5.1) Chloride Level 98 MMOL/L (98-107) 99 MMOL/L (98-107) 104 MMOL/L (98-107) Carbon Dioxide Level 27 MMOL/L (21-32) 26 MMOL/L (21-32) 31 MMOL/L (21-32) Anion Gap 8 mmol/L (5-15) 11 mmol/L (5-15) 6 mmol/L (5-15) Blood Urea Nitrogen 40 mg/dL (7-18) 48 mg/dL (7-18) 33 mg/dL (7-18) Creatinine 3.3 MG/DL (0.55-1.30) 3.6 MG/DL (0.55-1.30) 2.5 MG/DL (0.55-1.30) Estimat Glomerular Filtration Rate 13.5 mL/min (>60) 12.2 mL/min (>60) 18.6 mL/min (>60) Glucose Level 151 MG/DL (74-106) 97 MG/DL (74-106) 113 MG/DL (74-106) Calcium Level 8.8 MG/DL (8.5-10.1) 8.6 MG/DL (8.5-10.1) 8.8 MG/DL (8.5-10.1) Phosphorus Level 3.2 MG/DL (2.5-4.9) 3.1 MG/DL (2.5-4.9) Magnesium Level 2.4 MG/DL (1.8-2.4) 2.4 MG/DL (1.8-2.4) Total Bilirubin 0.4 MG/DL (0.2-1.0) 0.4 MG/DL (0.2-1.0) 0.4 MG/DL (0.2-1.0) Aspartate Amino Transf (AST/SGOT) 22 U/L (15-37) 24 U/L (15-37) 32 U/L (15-37) Alanine Aminotransferase (ALT/SGPT) 10 U/L (12-78) 10 U/L (12-78) 11 U/L (12-78) Alkaline Phosphatase 194 U/L (46-116) 148 U/L (46-116) 140 U/L (46-116) C-Reactive Protein, Quantitative 6.2 mg/dL (0.00-0.90) Pro-B-Type Natriuretic Peptide > 12661 pg/mL (0-125) Total Protein 6.0 G/DL (6.4-8.2) 5.7 G/DL (6.4-8.2) 5.6 G/DL (6.4-8.2) Albumin 1.6 G/DL (3.4-5.0) 1.6 G/DL (3.4-5.0) 2.0 G/DL (3.4-5.0) Globulin 4.4 g/dL 4.1 g/dL Albumin/Globulin Ratio 0.4 (1.0-2.7) 0.4 (1.0-2.7) Direct Bilirubin < 0.1 MG/DL (0.0-0.3) Micro Microbiology Date/Time Source Procedure Growth Status 08/27/19 01:00 Sputum Gram Stain - Final Resulted 08/27/19 01:00 Sputum Sputum Culture Pending Resulted Height (Feet): 5 Height (Inches): 4.00 Weight (Pounds): 112 Objective gen: nad pulm: on trach+ / vent cv: rrr, no gmr abd: sfot, nt, nd ++ gt ext: no cce Gio Rob MD Aug 27, 2019 23:36
[2019-08-28] VITALS (25 sets, daily range): BP systolic 115–154; BP diastolic 55–103
[2019-08-28] MEDS: HydrALAZINE 25mg tab NG SCH ×4 (00:27→17:46)
[2019-08-28] MEDS: Nitroglycerin 2% oint pkt TOPIC SCH ×4 (00:33→17:45)
[2019-08-28 06:30] LABS: BASOPHILS % (AUTO) 1.6 % (0.0-2.0); EOSINOPHILS % (AUTO) 1.6 % (0.0-3.0); HEMATOCRIT 31.3 % (37.0-47.0); HEMOGLOBIN 10.4 G/DL (12.0-16.0); LYMPHOCYTES % (AUTO) 40.5 % (20.0-45.0); MEAN CORPUSCULAR VOLUME 91 FL (80-99); MONOCYTES % (AUTO) 7.9 % (1.0-10.0); NEUTROPHILS % (AUTO) 48.5 % (45.0-75.0); PLATELET COUNT 530 K/UL (150-450); RED BLOOD COUNT 3.44 M/UL (4.20-5.40); RED CELL DISTRIBUTION WIDTH 16.3 % (11.6-14.8); WHITE BLOOD COUNT 4.4 K/UL (4.8-10.8)
[2019-08-28 06:56] LABS: ALANINE AMINOTRANSFERASE < 6 U/L (12-78); ALBUMIN 1.9 G/DL (3.4-5.0); ALBUMIN/GLOBULIN RATIO 0.4 (1.0-2.7); ALKALINE PHOSPHATASE 113 U/L (46-116); ANION GAP 8 mmol/L (5-15); ASPARTATE AMINO TRANSFERASE 28 U/L (15-37); BILIRUBIN,TOTAL 0.5 MG/DL (0.2-1.0); BLOOD UREA NITROGEN 36 mg/dL (7-18); CALCIUM 8.9 MG/DL (8.5-10.1); CARBON DIOXIDE 30 MMOL/L (21-32); CHLORIDE 103 MMOL/L (98-107); CREATININE 2.9 MG/DL (0.55-1.30); PHOSPHORUS 3.5 MG/DL (2.5-4.9); POTASSIUM 3.2 MMOL/L (3.5-5.1); SODIUM 141 MMOL/L (136-145)
--- NOTE | 2019-08-28 10:21 | Nephrology Progress Note ---
Assessment/Plan Problem List: (1) ESRD (end stage renal disease) on dialysis (2) Malnutrition (3) Anemia in CKD (chronic kidney disease) (4) Hypotension (5) Thrombocytopenia (6) Sepsis Assessment: klebsiella in blood Assessment -Early sepsis with shock. -Healthcare-associated pneumonia. -Severe protein-calorie malnutrition. -Thrombocytopenia. - End-stage renal disease. - History of hypertension. - Bradycardia. - HypoThyroid Plan Waiting for family's decision regarding the change of CODE STATUS Last dialysis August 25 Due to her overall medical condition I favor DNR and comfort care Blood pressure fluctuating, will start hydralazine via NG tube for blood pressure Magnesium and potassium supplement intravenously as needed Patient underwent PEG placement August 16 patient remains intubated on ventilator Discussed with RN Aim to wean from ventilator or consider tracheostomy Permacath was removed on August 12 Dialysis 08/11 Transfusion as needed Patient had hematemesis meds IV as possible Surveillance blood cultures tomorrow Plan to put the permacath back in on Thursday if cultures are negative keep BP and BS in check Inflammatory markers per orders Objective Objective Last 24 Hour Vital Signs Date Time Temp Pulse Resp B/P (MAP) Pulse Ox O2 Delivery O2 Flow Rate FiO2 08/28/19 09:26 57 18 40 08/28/19 09:00 63 27 134/66 (88) 100 08/28/19 08:21 75 135/67 08/28/19 08:00 40 08/28/19 08:00 Mechanical Ventilator Mechanical Ventilator Mechanical Ventilator Mechanical Ventilator 08/28/19 08:00 97.6 59 18 135/67 (89) 100 08/28/19 07:16 98 08/28/19 07:12 67 18 40 08/28/19 07:00 64 21 138/69 (92) 100 08/28/19 06:30 68 20 08/28/19 06:00 70 22 134/90 (105) 100 08/28/19 05:34 128/69 08/28/19 05:33 128/69 08/28/19 05:00 54 19 128/69 (88) 100 08/28/19 04:45 66 18 40 08/28/19 04:00 40 08/28/19 04:00 97.9 79 19 115/103 (107) 100 08/28/19 04:00 Mechanical Ventilator Mechanical Ventilator Mechanical Ventilator Mechanical Ventilator 08/28/19 04:00 81 08/28/19 03:31 77 24 134/71 (92) 100 08/28/19 03:00 79 26 134/71 (92) 100 08/28/19 02:47 81 26 40 08/28/19 02:00 70 20 153/64 (93) 100 08/28/19 01:30 71 21 40 08/28/19 01:00 62 20 154/61 (92) 100 08/28/19 00:33 143/61 08/28/19 00:27 143/61 08/28/19 00:00 61 08/28/19 00:00 Mechanical Ventilator Mechanical Ventilator Mechanical Ventilator Mechanical Ventilator 08/28/19 00:00 98.5 63 22 143/61 (88) 100 08/28/19 00:00 40 08/27/19 23:12 73 19 40 08/27/19 23:00 61 19 149/62 (91) 100 08/27/19 22:00 70 22 141/91 (108) 100 08/27/19 21:03 65 18 40 08/27/19 21:00 61 19 128/81 (97) 100 08/27/19 20:00 Mechanical Ventilator Mechanical Ventilator Mechanical Ventilator Mechanical Ventilator 08/27/19 20:00 40 08/27/19 20:00 59 08/27/19 20:00 99.8 60 22 138/102 (114) 100 08/27/19 19:00 55 18 100 08/27/19 18:50 63 18 40 08/27/19 18:34 63 135/63 08/27/19 18:34 135/63 08/27/19 18:33 135/63 08/27/19 18:00 57 18 135/63 (87) 100 08/27/19 17:25 68 18 40 08/27/19 17:00 58 22 136/74 (94) 99 08/27/19 16:30 66 22 137/72 (93) 99 08/27/19 16:00 40 08/27/19 16:00 97.8 74 21 135/54 (81) 99 08/27/19 16:00 77 08/27/19 16:00 Mechanical Ventilator Mechanical Ventilator Mechanical Ventilator Mechanical Ventilator 08/27/19 15:07 68 18 40 08/27/19 15:00 66 22 137/72 (93) 99 08/27/19 14:00 65 18 125/56 (79) 100 08/27/19 13:00 70 23 117/54 (75) 100 08/27/19 12:44 117/5 08/27/19 12:43 117/54 08/27/19 12:00 70 24 133/60 (84) 100 08/27/19 12:00 40 08/27/19 12:00 79 08/27/19 12:00 Mechanical Ventilator Mechanical Ventilator Mechanical Ventilator Mechanical Ventilator 08/27/19 11:18 68 19 40 08/27/19 11:00 68 26 130/66 (87) 100 Intake and Output 08/27/19 08/28/19 19:00 07:00 Intake Total 745 ml 520 ml Balance 745 ml 520 ml Intake Free Water 100 ml IV Total 100 ml Tube Feeding 455 ml 420 ml Other 190 ml # Voids 1 # Bowel Movements 3 2 Laboratory Tests 08/28/19 05:10: White Blood Count 4.4L, Red Blood Count 3.44L, Hemoglobin 10.4L, Hematocrit 31.3L, Mean Corpuscular Volume 91, Mean Corpuscular Hemoglobin 30.1, Mean Corpuscular Hemoglobin Concent 33.1, Red Cell Distribution Width 16.3H, Platelet Count 530H, Mean Platelet Volume 5.7L, Neutrophils (%) (Auto) 48.5, Lymphocytes (%) (Auto) 40.5, Monocytes (%) (Auto) 7.9, Eosinophils (%) (Auto) 1.6, Basophils (%) (Auto) 1.6, Sodium Level 141, Potassium Level 3.2L, Chloride Level 103, Carbon Dioxide Level 30, Anion Gap 8, Blood Urea Nitrogen 36H, Creatinine 2.9H, Estimat Glomerular Filtration Rate 15.7, Glucose Level 76, Calcium Level 8.9, Phosphorus Level 3.5, Magnesium Level 2.3, Total Bilirubin 0.5, Aspartate Amino Transf (AST/SGOT) 28, Alanine Aminotransferase (ALT/SGPT) < 6L, Alkaline Phosphatase 113, C-Reactive Protein, Quantitative 6.3H, Pro-B- Type Natriuretic Peptide > [id number], Total Protein 6.2L, Albumin 1.9L, Globulin 4.3, Albumin/Globulin Ratio 0.4L Height (Feet): 5 Height (Inches): 4.00 Weight (Pounds): 110 Objective no change Fouladian,William MD Aug 28, 2019 10:21
[2019-08-28] MEDS ORDERED: Sodium Chloride for KCL Premix x 2hrs IV SCH (10:30)
--- NOTE | 2019-08-28 10:46 | Infectious Diseases Prog Note ---
Assessment/Plan Assessment/Plan A; 1. Hailee sepsis 2. Klebsiella sepsis , treated 3. Right shoulder septic arthritis, status post surgery. 4. Diabetes. 5. Hypertension. 6. Anemia 7. Thrombocytopenia improving 9. Atelectasis , left lung collapse 10. Pleural effusion PLAN: 1. Continue Fluconazole X 1 day 3. case was D/W RN & insight leader Subjective ROS Limited/Unobtainable: Yes Constitutional: Denies: fever Respiratory: Reports: other - Failed weaning Allergies: Coded Allergies: VANCOMYCIN (Unverified Allergy, Unknown, 08/02/19) Objective Vital Signs Last 24 Hour Vital Signs Date Time Temp Pulse Resp B/P (MAP) Pulse Ox O2 Delivery O2 Flow Rate FiO2 08/28/19 10:00 65 26 138/71 (93) 100 08/28/19 09:26 57 18 40 08/28/19 09:00 63 27 134/66 (88) 100 08/28/19 08:21 75 135/67 08/28/19 08:00 40 08/28/19 08:00 Mechanical Ventilator Mechanical Ventilator Mechanical Ventilator Mechanical Ventilator 08/28/19 08:00 97.6 59 18 135/67 (89) 100 08/28/19 07:16 98 08/28/19 07:12 67 18 40 08/28/19 07:00 64 21 138/69 (92) 100 08/28/19 06:30 68 20 08/28/19 06:00 70 22 134/90 (105) 100 08/28/19 05:34 128/69 08/28/19 05:33 128/69 08/28/19 05:00 54 19 128/69 (88) 100 08/28/19 04:45 66 18 40 08/28/19 04:00 40 08/28/19 04:00 97.9 79 19 115/103 (107) 100 08/28/19 04:00 Mechanical Ventilator Mechanical Ventilator Mechanical Ventilator Mechanical Ventilator 08/28/19 04:00 81 08/28/19 03:31 77 24 134/71 (92) 100 08/28/19 03:00 79 26 134/71 (92) 100 08/28/19 02:47 81 26 40 08/28/19 02:00 70 20 153/64 (93) 100 08/28/19 01:30 71 21 40 08/28/19 01:00 62 20 154/61 (92) 100 08/28/19 00:33 143/61 08/28/19 00:27 143/61 08/28/19 00:00 61 08/28/19 00:00 Mechanical Ventilator Mechanical Ventilator Mechanical Ventilator Mechanical Ventilator 08/28/19 00:00 98.5 63 22 143/61 (88) 100 08/28/19 00:00 40 08/27/19 23:12 73 19 40 08/27/19 23:00 61 19 149/62 (91) 100 08/27/19 22:00 70 22 141/91 (108) 100 08/27/19 21:03 65 18 40 08/27/19 21:00 61 19 128/81 (97) 100 08/27/19 20:00 Mechanical Ventilator Mechanical Ventilator Mechanical Ventilator Mechanical Ventilator 08/27/19 20:00 40 08/27/19 20:00 59 08/27/19 20:00 99.8 60 22 138/102 (114) 100 08/27/19 19:00 55 18 100 08/27/19 18:50 63 18 40 08/27/19 18:34 63 135/63 08/27/19 18:34 135/63 08/27/19 18:33 135/63 08/27/19 18:00 57 18 135/63 (87) 100 08/27/19 17:25 68 18 40 08/27/19 17:00 58 22 136/74 (94) 99 08/27/19 16:30 66 22 137/72 (93) 99 08/27/19 16:00 40 08/27/19 16:00 97.8 74 21 135/54 (81) 99 08/27/19 16:00 77 08/27/19 16:00 Mechanical Ventilator Mechanical Ventilator Mechanical Ventilator Mechanical Ventilator 08/27/19 15:07 68 18 40 08/27/19 15:00 66 22 137/72 (93) 99 08/27/19 14:00 65 18 125/56 (79) 100 08/27/19 13:00 70 23 117/54 (75) 100 08/27/19 12:44 117/5 08/27/19 12:43 117/54 08/27/19 12:00 70 24 133/60 (84) 100 08/27/19 12:00 40 08/27/19 12:00 79 08/27/19 12:00 Mechanical Ventilator Mechanical Ventilator Mechanical Ventilator Mechanical Ventilator 08/27/19 11:18 68 19 40 08/27/19 11:00 68 26 130/66 (87) 100 Height (Feet): 5 Height (Inches): 4.00 Weight (Pounds): 110 General Appearance: cachetic HEENT: other - orally intubted Respiratory/Chest: decreased breath sounds, other - on ventilator Cardiovascular: normal rate, other - R femoral HD line Abdomen: soft, non tender Extremities: no edema Neurologic/Psychiatric: unresponsiveness Microbiology Date/Time Source Procedure Growth Status 08/27/19 01:00 Sputum Gram Stain - Final Resulted 08/27/19 01:00 Sputum Sputum Culture Pending Resulted Laboratory Tests Test 08/28/19 05:10 White Blood Count 4.4 K/UL (4.8-10.8) L Red Blood Count 3.44 M/UL (4.20-5.40) L Hemoglobin 10.4 G/DL (12.0-16.0) L Hematocrit 31.3 % (37.0-47.0) L Mean Corpuscular Volume 91 FL (80-99) Mean Corpuscular Hemoglobin 30.1 PG (27.0-31.0) Mean Corpuscular Hemoglobin Concent 33.1 G/DL (32.0-36.0) Red Cell Distribution Width 16.3 % (11.6-14.8) H Platelet Count 530 K/UL (150-450) H Mean Platelet Volume 5.7 FL (6.5-10.1) L Neutrophils (%) (Auto) 48.5 % (45.0-75.0) Lymphocytes (%) (Auto) 40.5 % (20.0-45.0) Monocytes (%) (Auto) 7.9 % (1.0-10.0) Eosinophils (%) (Auto) 1.6 % (0.0-3.0) Basophils (%) (Auto) 1.6 % (0.0-2.0) Sodium Level 141 MMOL/L (136-145) Potassium Level 3.2 MMOL/L (3.5-5.1) L Chloride Level 103 MMOL/L (98-107) Carbon Dioxide Level 30 MMOL/L (21-32) Anion Gap 8 mmol/L (5-15) Blood Urea Nitrogen 36 mg/dL (7-18) H Creatinine 2.9 MG/DL (0.55-1.30) H Estimat Glomerular Filtration Rate 15.7 mL/min (>60) Glucose Level 76 MG/DL (74-106) Calcium Level 8.9 MG/DL (8.5-10.1) Phosphorus Level 3.5 MG/DL (2.5-4.9) Magnesium Level 2.3 MG/DL (1.8-2.4) Total Bilirubin 0.5 MG/DL (0.2-1.0) Aspartate Amino Transf (AST/SGOT) 28 U/L (15-37) Alanine Aminotransferase (ALT/SGPT) < 6 U/L (12-78) L Alkaline Phosphatase 113 U/L (46-116) C-Reactive Protein, Quantitative 6.3 mg/dL (0.00-0.90) H Pro-B-Type Natriuretic Peptide > 92934 pg/mL (0-125) H Total Protein 6.2 G/DL (6.4-8.2) L Albumin 1.9 G/DL (3.4-5.0) L Globulin 4.3 g/dL Albumin/Globulin Ratio 0.4 (1.0-2.7) L Current Medications Medications (Trade) Dose Ordered Sig/Javier Route PRN Reason Start Time Stop Time Status Last Admin Dose Admin Albuterol/ Ipratropium (Albuterol/ Ipratropium) 3 ml Q4H PRN HHN Shortness of Breath 08/25/19 09:30 08/30/19 09:29 Amlodipine Besylate (Norvasc) 5 mg BID NG 08/23/19 01:45 09/22/19 01:44 08/28/19 08:21 Atropine Sulfate (Atropine) 1 mg Q4H PRN IVP Per rx protocol 08/13/19 08:30 09/12/19 08:29 Chlorhexidine Gluconate (Nae-Hex 2%) 1 applic DAILY@1999 TOPIC 08/15/19 20:00 09/14/19 19:59 08/27/19 20:47 Dextrose (Dextrose 50%) 50 ml Q30M PRN IV Hypoglycemia 08/11/19 10:30 09/04/19 17:44 08/22/19 15:46 Diphenhydramine HCl (Benadryl) 50 mg Q4H PRN IVP Itching 08/09/19 14:30 09/08/19 14:29 08/13/19 02:39 Epoetin Thomas (Epoetin Thomas(ESRD on dialysis)) 4,000 unit SUBQ 08/12/19 21:00 09/11/19 20:59 08/26/19 21:41 Fluconazole/ Sodium Chloride 100 ml @ 100 mls/hr Q24H IV 08/18/19 13:00 08/29/19 23:59 08/27/19 12:43 Hydralazine HCl (Apresoline) 10 mg Q4H PRN IV For High Blood Pressure 08/18/19 12:44 09/17/19 12:43 08/22/19 09:22 Hydralazine HCl (Apresoline) 25 mg Q6HR NG 08/23/19 06:00 09/22/19 05:59 08/28/19 05:34 Lansoprazole (Prevacid) 30 mg BID GT 08/19/19 09:00 09/18/19 08:59 08/28/19 08:21 Levothyroxine Sodium (Synthroid) 50 mcg DAILY@0630 ORAL 08/25/19 06:30 09/24/19 06:29 08/28/19 05:41 Metoclopramide HCl (Reglan) 5 mg Q8H PRN IVP Nausea & Vomiting 08/09/19 12:39 09/08/19 12:38 Nitroglycerin (Nitro-Bid) 1 inch Q6HR TOPIC 08/09/19 12:39 09/08/19 12:38 08/28/19 05:33 Potassium Chloride 100 ml @ 100 mls/hr Q1HR IVPB 08/28/19 11:00 08/28/19 12:59 Sodium Chloride 200 ml @ 100 mls/hr Q2H IV 08/28/19 10:30 08/28/19 12:29 Warren Parks MD Aug 28, 2019 10:46
--- NOTE | 2019-08-28 11:17 | Nephrology Progress Note ---
Assessment/Plan Problem List: (1) ESRD (end stage renal disease) on dialysis (2) Malnutrition (3) Anemia in CKD (chronic kidney disease) (4) Hypotension (5) Thrombocytopenia (6) Sepsis Assessment: klebsiella in blood Assessment -Early sepsis with shock. -Healthcare-associated pneumonia. -Severe protein-calorie malnutrition. -Thrombocytopenia. - End-stage renal disease. - History of hypertension. - Bradycardia. - HypoThyroid Plan Waiting for family's decision regarding the change of CODE STATUS Last dialysis August 25- K supplement Due to her overall medical condition I favor DNR and comfort care Blood pressure fluctuating, will start hydralazine via NG tube for blood pressure Magnesium and potassium supplement intravenously as needed Patient underwent PEG placement August 16 patient remains intubated on ventilator Discussed with RN Aim to wean from ventilator or consider tracheostomy Permacath was removed on August 12 Dialysis 08/11 Transfusion as needed Patient had hematemesis meds IV as possible Surveillance blood cultures tomorrow Plan to put the permacath back in on Thursday if cultures are negative keep BP and BS in check Inflammatory markers per orders Subjective ROS Limited/Unobtainable: Yes Objective Objective Last 24 Hour Vital Signs Date Time Temp Pulse Resp B/P (MAP) Pulse Ox O2 Delivery O2 Flow Rate FiO2 08/28/19 11:00 58 19 131/64 (86) 100 08/28/19 10:00 65 26 138/71 (93) 100 08/28/19 09:26 57 18 40 08/28/19 09:00 63 27 134/66 (88) 100 08/28/19 08:21 75 135/67 08/28/19 08:00 40 08/28/19 08:00 Mechanical Ventilator Mechanical Ventilator Mechanical Ventilator Mechanical Ventilator 08/28/19 08:00 97.6 59 18 135/67 (89) 100 08/28/19 07:16 98 08/28/19 07:12 67 18 40 08/28/19 07:00 64 21 138/69 (92) 100 08/28/19 06:30 68 20 08/28/19 06:00 70 22 134/90 (105) 100 08/28/19 05:34 128/69 08/28/19 05:33 128/69 08/28/19 05:00 54 19 128/69 (88) 100 08/28/19 04:45 66 18 40 08/28/19 04:00 40 08/28/19 04:00 97.9 79 19 115/103 (107) 100 08/28/19 04:00 Mechanical Ventilator Mechanical Ventilator Mechanical Ventilator Mechanical Ventilator 08/28/19 04:00 81 08/28/19 03:31 77 24 134/71 (92) 100 08/28/19 03:00 79 26 134/71 (92) 100 08/28/19 02:47 81 26 40 08/28/19 02:00 70 20 153/64 (93) 100 08/28/19 01:30 71 21 40 08/28/19 01:00 62 20 154/61 (92) 100 08/28/19 00:33 143/61 08/28/19 00:27 143/61 08/28/19 00:00 61 08/28/19 00:00 Mechanical Ventilator Mechanical Ventilator Mechanical Ventilator Mechanical Ventilator 08/28/19 00:00 98.5 63 22 143/61 (88) 100 08/28/19 00:00 40 08/27/19 23:12 73 19 40 08/27/19 23:00 61 19 149/62 (91) 100 08/27/19 22:00 70 22 141/91 (108) 100 08/27/19 21:03 65 18 40 08/27/19 21:00 61 19 128/81 (97) 100 08/27/19 20:00 Mechanical Ventilator Mechanical Ventilator Mechanical Ventilator Mechanical Ventilator 08/27/19 20:00 40 08/27/19 20:00 59 08/27/19 20:00 99.8 60 22 138/102 (114) 100 08/27/19 19:00 55 18 100 08/27/19 18:50 63 18 40 08/27/19 18:34 63 135/63 08/27/19 18:34 135/63 08/27/19 18:33 135/63 08/27/19 18:00 57 18 135/63 (87) 100 08/27/19 17:25 68 18 40 08/27/19 17:00 58 22 136/74 (94) 99 08/27/19 16:30 66 22 137/72 (93) 99 08/27/19 16:00 40 08/27/19 16:00 97.8 74 21 135/54 (81) 99 08/27/19 16:00 77 08/27/19 16:00 Mechanical Ventilator Mechanical Ventilator Mechanical Ventilator Mechanical Ventilator 08/27/19 15:07 68 18 40 08/27/19 15:00 66 22 137/72 (93) 99 08/27/19 14:00 65 18 125/56 (79) 100 08/27/19 13:00 70 23 117/54 (75) 100 08/27/19 12:44 117/5 08/27/19 12:43 117/54 08/27/19 12:00 70 24 133/60 (84) 100 08/27/19 12:00 40 08/27/19 12:00 79 08/27/19 12:00 Mechanical Ventilator Mechanical Ventilator Mechanical Ventilator Mechanical Ventilator 08/27/19 11:18 68 19 40 Intake and Output 08/27/19 08/28/19 19:00 07:00 Intake Total 745 ml 520 ml Balance 745 ml 520 ml Intake Free Water 100 ml IV Total 100 ml Tube Feeding 455 ml 420 ml Other 190 ml # Voids 1 # Bowel Movements 3 2 Laboratory Tests 08/28/19 05:10: White Blood Count 4.4L, Red Blood Count 3.44L, Hemoglobin 10.4L, Hematocrit 31.3L, Mean Corpuscular Volume 91, Mean Corpuscular Hemoglobin 30.1, Mean Corpuscular Hemoglobin Concent 33.1, Red Cell Distribution Width 16.3H, Platelet Count 530H, Mean Platelet Volume 5.7L, Neutrophils (%) (Auto) 48.5, Lymphocytes (%) (Auto) 40.5, Monocytes (%) (Auto) 7.9, Eosinophils (%) (Auto) 1.6, Basophils (%) (Auto) 1.6, Sodium Level 141, Potassium Level 3.2L, Chloride Level 103, Carbon Dioxide Level 30, Anion Gap 8, Blood Urea Nitrogen 36H, Creatinine 2.9H, Estimat Glomerular Filtration Rate 15.7, Glucose Level 76, Calcium Level 8.9, Phosphorus Level 3.5, Magnesium Level 2.3, Total Bilirubin 0.5, Aspartate Amino Transf (AST/SGOT) 28, Alanine Aminotransferase (ALT/SGPT) < 6L, Alkaline Phosphatase 113, C-Reactive Protein, Quantitative 6.3H, Pro-B- Type Natriuretic Peptide > 28727Q, Total Protein 6.2L, Albumin 1.9L, Globulin 4.3, Albumin/Globulin Ratio 0.4L Height (Feet): 5 Height (Inches): 4.00 Weight (Pounds): 110 General Appearance: no apparent distress EENT: other - Remains intubated Cardiovascular: bradycardia Respiratory/Chest: decreased breath sounds Abdomen: distended Objective no change William Blackwood MD Aug 28, 2019 11:17
--- NOTE | 2019-08-28 11:24 | Critical Care Progress Note ---
Assessment/Plan Assessment/Plan respiratory failure hemoptysis resolved hypoxemia chronic renal failure toxic met encephalopathy severe protein calorie malnutrition cachexia left lung whiteout/collapse, improved with intubation s/p intubation anemia pulmonary edema with elevated BNP + pleural effusion PLAN thoracentesis ordered and planned for am care noted and reviewed poor volumes on weaning- reviewed RT noted failed weaning past few days- 3rd spacing noted d/w family as to trach vs terminal care; per Dr. Beltran keep negative as able and increase protein levels antibiotics noted monitor CXR for change elevated head and monitor ROM watch fluid status nutrition as able off load as able and monitor skin exam ROM as able ICU care and management critical at present requires ICU management and close follow up care feeds as able and monitor residuals medications/laboratory data/nursing notes/ICU care reviewed in detail note reviewed and edited care discussed with RN and RT ICU time spent >40 minutes coordinating care Critical Care - Subjective Interval Events: on vent in ICU awake not able to wean pending tap ROS Limited/Unobtainable: Yes Condition: critical EKG Rhythm: Sinus Rhythm Residuals: minimal Tube Feeding Tolerated: yes I&O: Intake and Output 08/27/19 08/28/19 19:00 07:00 Intake Total 745 ml 520 ml Balance 745 ml 520 ml Intake Free Water 100 ml IV Total 100 ml Tube Feeding 455 ml 420 ml Other 190 ml # Voids 1 # Bowel Movements 3 2 Critical Care - Objective ET-Tube: 7.0 ET Position: 18 Last 24 Hour Vital Signs Date Time Temp Pulse Resp B/P (MAP) Pulse Ox O2 Delivery O2 Flow Rate FiO2 08/28/19 11:00 58 19 131/64 (86) 100 08/28/19 10:00 65 26 138/71 (93) 100 08/28/19 09:26 57 18 40 08/28/19 09:00 63 27 134/66 (88) 100 08/28/19 08:21 75 135/67 08/28/19 08:00 40 08/28/19 08:00 Mechanical Ventilator Mechanical Ventilator Mechanical Ventilator Mechanical Ventilator 08/28/19 08:00 97.6 59 18 135/67 (89) 100 08/28/19 07:16 98 08/28/19 07:12 67 18 40 08/28/19 07:00 64 21 138/69 (92) 100 08/28/19 06:30 68 20 08/28/19 06:00 70 22 134/90 (105) 100 08/28/19 05:34 128/69 08/28/19 05:33 128/69 08/28/19 05:00 54 19 128/69 (88) 100 08/28/19 04:45 66 18 40 08/28/19 04:00 40 08/28/19 04:00 97.9 79 19 115/103 (107) 100 08/28/19 04:00 Mechanical Ventilator Mechanical Ventilator Mechanical Ventilator Mechanical Ventilator 08/28/19 04:00 81 08/28/19 03:31 77 24 134/71 (92) 100 08/28/19 03:00 79 26 134/71 (92) 100 08/28/19 02:47 81 26 40 08/28/19 02:00 70 20 153/64 (93) 100 08/28/19 01:30 71 21 40 08/28/19 01:00 62 20 154/61 (92) 100 08/28/19 00:33 143/61 08/28/19 00:27 143/61 08/28/19 00:00 61 08/28/19 00:00 Mechanical Ventilator Mechanical Ventilator Mechanical Ventilator Mechanical Ventilator 08/28/19 00:00 98.5 63 22 143/61 (88) 100 08/28/19 00:00 40 08/27/19 23:12 73 19 40 08/27/19 23:00 61 19 149/62 (91) 100 08/27/19 22:00 70 22 141/91 (108) 100 08/27/19 21:03 65 18 40 08/27/19 21:00 61 19 128/81 (97) 100 08/27/19 20:00 Mechanical Ventilator Mechanical Ventilator Mechanical Ventilator Mechanical Ventilator 08/27/19 20:00 40 08/27/19 20:00 59 08/27/19 20:00 99.8 60 22 138/102 (114) 100 08/27/19 19:00 55 18 100 08/27/19 18:50 63 18 40 08/27/19 18:34 63 135/63 08/27/19 18:34 135/63 08/27/19 18:33 135/63 08/27/19 18:00 57 18 135/63 (87) 100 08/27/19 17:25 68 18 40 08/27/19 17:00 58 22 136/74 (94) 99 08/27/19 16:30 66 22 137/72 (93) 99 08/27/19 16:00 40 08/27/19 16:00 97.8 74 21 135/54 (81) 99 08/27/19 16:00 77 08/27/19 16:00 Mechanical Ventilator Mechanical Ventilator Mechanical Ventilator Mechanical Ventilator 08/27/19 15:07 68 18 40 08/27/19 15:00 66 22 137/72 (93) 99 08/27/19 14:00 65 18 125/56 (79) 100 08/27/19 13:00 70 23 117/54 (75) 100 08/27/19 12:44 117/5 08/27/19 12:43 117/54 08/27/19 12:00 70 24 133/60 (84) 100 08/27/19 12:00 40 08/27/19 12:00 79 08/27/19 12:00 Mechanical Ventilator Mechanical Ventilator Mechanical Ventilator Mechanical Ventilator Labs: Labs Test 08/26/19 09:05 08/27/19 08:00 08/28/19 05:10 White Blood Count 5.8 K/UL (4.8-10.8) 4.9 K/UL (4.8-10.8) 4.4 K/UL (4.8-10.8) Red Blood Count 3.29 M/UL (4.20-5.40) 3.21 M/UL (4.20-5.40) 3.44 M/UL (4.20-5.40) Hemoglobin 9.9 G/DL (12.0-16.0) 9.8 G/DL (12.0-16.0) 10.4 G/DL (12.0-16.0) Hematocrit 29.7 % (37.0-47.0) 28.7 % (37.0-47.0) 31.3 % (37.0-47.0) Mean Corpuscular Volume 90 FL (80-99) 89 FL (80-99) 91 FL (80-99) Mean Corpuscular Hemoglobin 30.3 PG (27.0-31.0) 30.4 PG (27.0-31.0) 30.1 PG (27.0-31.0) Mean Corpuscular Hemoglobin Concent 33.5 G/DL (32.0-36.0) 34.0 G/DL (32.0-36.0) 33.1 G/DL (32.0-36.0) Red Cell Distribution Width 16.5 % (11.6-14.8) 16.0 % (11.6-14.8) 16.3 % (11.6-14.8) Platelet Count 450 K/UL (150-450) 504 K/UL (150-450) 530 K/UL (150-450) Mean Platelet Volume 6.2 FL (6.5-10.1) 6.3 FL (6.5-10.1) 5.7 FL (6.5-10.1) Neutrophils (%) (Auto) 45.9 % (45.0-75.0) 46.7 % (45.0-75.0) 48.5 % (45.0-75.0) Lymphocytes (%) (Auto) 44.9 % (20.0-45.0) 41.1 % (20.0-45.0) 40.5 % (20.0-45.0) Monocytes (%) (Auto) 7.2 % (1.0-10.0) 8.5 % (1.0-10.0) 7.9 % (1.0-10.0) Eosinophils (%) (Auto) 0.9 % (0.0-3.0) 1.1 % (0.0-3.0) 1.6 % (0.0-3.0) Basophils (%) (Auto) 1.2 % (0.0-2.0) 2.6 % (0.0-2.0) 1.6 % (0.0-2.0) Sodium Level 135 MMOL/L (136-145) 141 MMOL/L (136-145) 141 MMOL/L (136-145) Potassium Level 3.8 MMOL/L (3.5-5.1) 3.4 MMOL/L (3.5-5.1) 3.2 MMOL/L (3.5-5.1) Chloride Level 99 MMOL/L (98-107) 104 MMOL/L (98-107) 103 MMOL/L (98-107) Carbon Dioxide Level 26 MMOL/L (21-32) 31 MMOL/L (21-32) 30 MMOL/L (21-32) Anion Gap 11 mmol/L (5-15) 6 mmol/L (5-15) 8 mmol/L (5-15) Blood Urea Nitrogen 48 mg/dL (7-18) 33 mg/dL (7-18) 36 mg/dL (7-18) Creatinine 3.6 MG/DL (0.55-1.30) 2.5 MG/DL (0.55-1.30) 2.9 MG/DL (0.55-1.30) Estimat Glomerular Filtration Rate 12.2 mL/min (>60) 18.6 mL/min (>60) 15.7 mL/min (>60) Glucose Level 97 MG/DL (74-106) 113 MG/DL (74-106) 76 MG/DL (74-106) Calcium Level 8.6 MG/DL (8.5-10.1) 8.8 MG/DL (8.5-10.1) 8.9 MG/DL (8.5-10.1) Total Bilirubin 0.4 MG/DL (0.2-1.0) 0.4 MG/DL (0.2-1.0) 0.5 MG/DL (0.2-1.0) Aspartate Amino Transf (AST/SGOT) 24 U/L (15-37) 32 U/L (15-37) 28 U/L (15-37) Alanine Aminotransferase (ALT/SGPT) 10 U/L (12-78) 11 U/L (12-78) < 6 U/L (12-78) Alkaline Phosphatase 148 U/L (46-116) 140 U/L (46-116) 113 U/L (46-116) Total Protein 5.7 G/DL (6.4-8.2) 5.6 G/DL (6.4-8.2) 6.2 G/DL (6.4-8.2) Albumin 1.6 G/DL (3.4-5.0) 2.0 G/DL (3.4-5.0) 1.9 G/DL (3.4-5.0) Globulin 4.1 g/dL 4.3 g/dL Albumin/Globulin Ratio 0.4 (1.0-2.7) 0.4 (1.0-2.7) Phosphorus Level 3.1 MG/DL (2.5-4.9) 3.5 MG/DL (2.5-4.9) Magnesium Level 2.4 MG/DL (1.8-2.4) 2.3 MG/DL (1.8-2.4) Direct Bilirubin < 0.1 MG/DL (0.0-0.3) C-Reactive Protein, Quantitative 6.3 mg/dL (0.00-0.90) Pro-B-Type Natriuretic Peptide > 94763 pg/mL (0-125) Objective: WDWN NAD intubated reduced breath sounds bilaterally overall worse without rhonchi or wheeze [id number] without MRG NABS nontender no HSM no CCE contractures feeding tube in place no distention poorly responsive nonfocal cachectic reviewed and edited Micro: Microbiology Date/Time Source Procedure Growth Status 08/27/19 01:00 Sputum Gram Stain - Final Resulted 08/27/19 01:00 Sputum Sputum Culture Pending Resulted Accucheck: 86 Malcolm Cruz MD Aug 28, 2019 11:24
--- NOTE | 2019-08-28 12:33 | Hematology/Onc Progress Note ---
Assessment/Plan Assessment/Plan # Thrombocytopenia - potential causes multifactorial, evaluate liver and viral etiologies to begin, in this case due to sepsis with septic shock also with cirrhosis and liver disease --> Hep panel and HIV ordered -> neg --> US abd to evaluate for cirrhosis and hsm ordered --> reviewed --> Peripheral smear ordered to evaluate for blasts /schistocytes --> abx and other meds have been reviewed --> ok for ppx if plt >50k w/ either heparin or lovenox --> Transfuse if Plt < 20k and fever, or if Plt < 10k without fever --> okay for permacath change once plt better--> for 08/14 --> plt trend: 43-->83-->237k-->292-->341-->315-->388 -->444-->530 # Anemia of chronic disease due to underlying chronic medical issues, multifactorial v Gi bleed --> Anemia workup has been ordered, rule out gi bleed --> No evidence of hemolysis is noted, peripheral smear has been reviewed. --> Hgb goal >7. Transfuse prn. --> Epogen has been started --> HOLD OFF IRON ferritin is >1000 --> Medications have been reviewed --> low threshold for gi evaluation in case has occult + --> hgb 9-->6.7-->9.2 -->10.5-->10.6 -->10.7-->10-->10.5-->9.8-->10.4 --> blood tx: 08/11 # Early sepsis with shock. --> abx as per id, recs noted --> pressors as needed # Healthcare-associated pneumonia. --> recs reviewed --> abx: jung/micafungin-->jung --> 08/24 us chest: moderate left pleural effusion # Severe protein-calorie malnutrition. --> nutritional support # End-stage renal disease --> had as renal hd --> with permacath # History of hypertension. --> per cards, now with Bradycardia. # resp failure s/p vent/trach # HypoThyroid # Ngt feedings # Dvt ppx scd's The timing of this note does not necessarily reflect the time of the patient was seen. Greatly appreciate consultation. Subjective Allergies: Coded Allergies: VANCOMYCIN (Unverified Allergy, Unknown, 08/02/19) Subjective 08/11: no bleeding or chills, labs reviewed, no major bleeding, plt less than 50k 08/12: icu, s/p blood, hgb improved to 9.2, 08/14: icu, pending consent for thora and permacath, labs reviewed 08/15: new permacath placed, no bleeding, for hd, plt much improved, started lovenox sq 08/16: ett to be adjusted, bp on high end, micafungin started, possible bronch 08/17: weaning as per pulm, no events otherwise, labs noted 08/18: no events no bleeding, remains confused on vent, for hd 08/20: icu, failed to wean, labs reviewed, jung 08/21: resting in bed, no overnight events, labs reviewed 08/22: awake, confused, restraints, no overnight events 08/23: no events, no bleeding, on ppi bid 08/24: icu, failed to wean, labs reviewed 08/25: no overnight events, us chest, restraints, afebrile 08/26 difficult in weaning, nad, seen by surg, pulm labs noted 08/27 awake on restraints, thoracentesis for am, labs reviewed Objective Objective Current Medications Medications (Trade) Dose Ordered Sig/Javier Route PRN Reason Start Time Stop Time Status Last Admin Dose Admin Albuterol/ Ipratropium (Albuterol/ Ipratropium) 3 ml Q4H PRN HHN Shortness of Breath 08/25/19 09:30 08/30/19 09:29 Amlodipine Besylate (Norvasc) 5 mg BID NG 08/23/19 01:45 09/22/19 01:44 08/28/19 08:21 Atropine Sulfate (Atropine) 1 mg Q4H PRN IVP Per rx protocol 08/13/19 08:30 09/12/19 08:29 Chlorhexidine Gluconate (Nae-Hex 2%) 1 applic DAILY@1999 TOPIC 08/15/19 20:00 09/14/19 19:59 08/27/19 20:47 Dextrose (Dextrose 50%) 50 ml Q30M PRN IV Hypoglycemia 08/11/19 10:30 09/04/19 17:44 08/22/19 15:46 Diphenhydramine HCl (Benadryl) 50 mg Q4H PRN IVP Itching 08/09/19 14:30 09/08/19 14:29 08/13/19 02:39 Epoetin Thomas (Epoetin Thomas(ESRD on dialysis)) 4,000 unit THU- SUBQ 08/12/19 21:00 09/11/19 20:59 08/26/19 21:41 Fluconazole/ Sodium Chloride 100 ml @ 100 mls/hr Q24H IV 08/18/19 13:00 08/29/19 23:59 08/27/19 12:43 Hydralazine HCl (Apresoline) 10 mg Q4H PRN IV For High Blood Pressure 08/18/19 12:44 09/17/19 12:43 08/22/19 09:22 Hydralazine HCl (Apresoline) 25 mg Q6HR NG 08/23/19 06:00 09/22/19 05:59 08/28/19 11:48 Lansoprazole (Prevacid) 30 mg BID GT 08/19/19 09:00 09/18/19 08:59 08/28/19 08:21 Levothyroxine Sodium (Synthroid) 50 mcg DAILY@0630 ORAL 08/25/19 06:30 09/24/19 06:29 08/28/19 05:41 Metoclopramide HCl (Reglan) 5 mg Q8H PRN IVP Nausea & Vomiting 08/09/19 12:39 09/08/19 12:38 Nitroglycerin (Nitro-Bid) 1 inch Q6HR TOPIC 08/09/19 12:39 09/08/19 12:38 08/28/19 11:48 Potassium Chloride 100 ml @ 100 mls/hr Q1HR IVPB 08/28/19 11:00 08/28/19 12:59 08/28/19 11:47 Sodium Chloride 200 ml @ 100 mls/hr Q2H IV 08/28/19 10:30 08/28/19 12:29 08/28/19 10:45 Last 24 Hour Vital Signs Date Time Temp Pulse Resp B/P (MAP) Pulse Ox O2 Delivery O2 Flow Rate FiO2 08/28/19 11:48 131/64 08/28/19 11:48 131/64 08/28/19 11:28 59 18 40 08/28/19 11:00 58 19 131/64 (86) 100 08/28/19 10:00 65 26 138/71 (93) 100 08/28/19 09:26 57 18 40 08/28/19 09:00 63 27 134/66 (88) 100 08/28/19 08:21 75 135/67 08/28/19 08:00 40 08/28/19 08:00 Mechanical Ventilator Mechanical Ventilator Mechanical Ventilator Mechanical Ventilator 08/28/19 08:00 97.6 59 18 135/67 (89) 100 08/28/19 07:16 98 08/28/19 07:12 67 18 40 08/28/19 07:00 64 21 138/69 (92) 100 08/28/19 06:30 68 20 08/28/19 06:00 70 22 134/90 (105) 100 08/28/19 05:34 128/69 08/28/19 05:33 128/69 08/28/19 05:00 54 19 128/69 (88) 100 08/28/19 04:45 66 18 40 08/28/19 04:00 40 08/28/19 04:00 97.9 79 19 115/103 (107) 100 08/28/19 04:00 Mechanical Ventilator Mechanical Ventilator Mechanical Ventilator Mechanical Ventilator 08/28/19 04:00 81 08/28/19 03:31 77 24 134/71 (92) 100 08/28/19 03:00 79 26 134/71 (92) 100 08/28/19 02:47 81 26 40 08/28/19 02:00 70 20 153/64 (93) 100 08/28/19 01:30 71 21 40 08/28/19 01:00 62 20 154/61 (92) 100 08/28/19 00:33 143/61 08/28/19 00:27 143/61 08/28/19 00:00 61 08/28/19 00:00 Mechanical Ventilator Mechanical Ventilator Mechanical Ventilator Mechanical Ventilator 08/28/19 00:00 98.5 63 22 143/61 (88) 100 08/28/19 00:00 40 08/27/19 23:12 73 19 40 08/27/19 23:00 61 19 149/62 (91) 100 08/27/19 22:00 70 22 141/91 (108) 100 08/27/19 21:03 65 18 40 08/27/19 21:00 61 19 128/81 (97) 100 08/27/19 20:00 Mechanical Ventilator Mechanical Ventilator Mechanical Ventilator Mechanical Ventilator 08/27/19 20:00 40 08/27/19 20:00 59 08/27/19 20:00 99.8 60 22 138/102 (114) 100 08/27/19 19:00 55 18 100 08/27/19 18:50 63 18 40 08/27/19 18:34 63 135/63 08/27/19 18:34 135/63 08/27/19 18:33 135/63 08/27/19 18:00 57 18 135/63 (87) 100 08/27/19 17:25 68 18 40 08/27/19 17:00 58 22 136/74 (94) 99 08/27/19 16:30 66 22 137/72 (93) 99 08/27/19 16:00 40 08/27/19 16:00 97.8 74 21 135/54 (81) 99 08/27/19 16:00 77 08/27/19 16:00 Mechanical Ventilator Mechanical Ventilator Mechanical Ventilator Mechanical Ventilator 08/27/19 15:07 68 18 40 08/27/19 15:00 66 22 137/72 (93) 99 08/27/19 14:00 65 18 125/56 (79) 100 08/27/19 13:00 70 23 117/54 (75) 100 08/27/19 12:44 117/5 08/27/19 12:43 117/54 08/27/19 12:00 70 24 133/60 (84) 100 08/27/19 12:00 40 08/27/19 12:00 79 08/27/19 12:00 Mechanical Ventilator Mechanical Ventilator Mechanical Ventilator Mechanical Ventilator 08/27/19 11:18 68 19 40 08/27/19 11:00 68 26 130/66 (87) 100 08/27/19 10:00 70 26 142/65 (90) 100 08/27/19 09:12 69 18 40 08/27/19 09:00 74 24 142/84 (103) 100 08/27/19 08:46 66 138/67 08/27/19 08:40 66 22 138/67 (90) 100 08/27/19 08:00 67 08/27/19 08:00 40 08/27/19 08:00 Mechanical Ventilator Mechanical Ventilator Mechanical Ventilator Mechanical Ventilator 08/27/19 08:00 98.4 78 26 139/69 (92) 100 08/27/19 07:47 79 22 40 08/27/19 07:00 71 21 144/63 (90) 100 08/27/19 06:30 63 20 08/27/19 06:11 153/78 08/27/19 06:11 153/78 08/27/19 06:00 64 21 136/70 (92) 100 08/27/19 05:22 66 20 40 08/27/19 05:00 68 19 153/78 (103) 99 08/27/19 04:00 Mechanical Ventilator Mechanical Ventilator Mechanical Ventilator Mechanical Ventilator 08/27/19 04:00 40 08/27/19 04:00 98.0 70 22 144/73 (96) 100 08/27/19 04:00 67 08/27/19 03:34 69 20 40 08/27/19 03:00 68 25 148/68 (94) 100 08/27/19 02:00 70 21 152/66 (94) 100 08/27/19 01:01 75 18 40 08/27/19 01:01 75 18 100 Mechanical Ventilator 40 08/27/19 01:00 68 21 141/69 (93) 72 08/27/19 00:22 132/76 08/27/19 00:22 132/76 08/27/19 00:00 72 08/27/19 00:00 97.8 72 21 131/66 (87) 100 08/27/19 00:00 Mechanical Ventilator Mechanical Ventilator Mechanical Ventilator Mechanical Ventilator 08/26/19 23:00 74 24 135/65 (88) 96 08/26/19 22:44 67 18 40 08/26/19 22:00 60 22 127/54 (78) 100 08/26/19 21:36 82 18 40 08/26/19 21:00 40 08/26/19 21:00 82 22 123/66 (85) 93 08/26/19 20:00 Mechanical Ventilator Mechanical Ventilator Mechanical Ventilator Mechanical Ventilator 08/26/19 20:00 97.9 82 23 116/64 (81) 100 08/26/19 20:00 84 08/26/19 19:00 60 21 130/70 (90) 99 08/26/19 18:44 117/68 08/26/19 18:43 117/68 08/26/19 18:00 61 117/68 08/26/19 18:00 Mechanical Ventilator Mechanical Ventilator Mechanical Ventilator Mechanical Ventilator 08/26/19 18:00 60 21 122/94 (103) 100 08/26/19 17:20 64 18 40 08/26/19 17:00 65 25 128/65 (86) 92 08/26/19 16:00 72 08/26/19 16:00 98.9 76 20 127/67 (87) 100 08/26/19 16:00 Mechanical Ventilator Mechanical Ventilator Mechanical Ventilator Mechanical Ventilator 08/26/19 16:00 40 08/26/19 15:00 74 19 124/72 (89) 96 08/26/19 14:45 65 20 40 08/26/19 14:00 71 25 100 08/26/19 13:06 76 19 40 08/26/19 13:00 75 20 121/77 (92) 99 Intake and Output 08/27/19 08/28/19 19:00 07:00 Intake Total 745 ml 520 ml Balance 745 ml 520 ml Intake Free Water 100 ml IV Total 100 ml Tube Feeding 455 ml 420 ml Other 190 ml # Voids 1 # Bowel Movements 3 2 Labs Test 08/26/19 09:05 08/27/19 08:00 08/28/19 05:10 White Blood Count 5.8 K/UL (4.8-10.8) 4.9 K/UL (4.8-10.8) 4.4 K/UL (4.8-10.8) Red Blood Count 3.29 M/UL (4.20-5.40) 3.21 M/UL (4.20-5.40) 3.44 M/UL (4.20-5.40) Hemoglobin 9.9 G/DL (12.0-16.0) 9.8 G/DL (12.0-16.0) 10.4 G/DL (12.0-16.0) Hematocrit 29.7 % (37.0-47.0) 28.7 % (37.0-47.0) 31.3 % (37.0-47.0) Mean Corpuscular Volume 90 FL (80-99) 89 FL (80-99) 91 FL (80-99) Mean Corpuscular Hemoglobin 30.3 PG (27.0-31.0) 30.4 PG (27.0-31.0) 30.1 PG (27.0-31.0) Mean Corpuscular Hemoglobin Concent 33.5 G/DL (32.0-36.0) 34.0 G/DL (32.0-36.0) 33.1 G/DL (32.0-36.0) Red Cell Distribution Width 16.5 % (11.6-14.8) 16.0 % (11.6-14.8) 16.3 % (11.6-14.8) Platelet Count 450 K/UL (150-450) 504 K/UL (150-450) 530 K/UL (150-450) Mean Platelet Volume 6.2 FL (6.5-10.1) 6.3 FL (6.5-10.1) 5.7 FL (6.5-10.1) Neutrophils (%) (Auto) 45.9 % (45.0-75.0) 46.7 % (45.0-75.0) 48.5 % (45.0-75.0) Lymphocytes (%) (Auto) 44.9 % (20.0-45.0) 41.1 % (20.0-45.0) 40.5 % (20.0-45.0) Monocytes (%) (Auto) 7.2 % (1.0-10.0) 8.5 % (1.0-10.0) 7.9 % (1.0-10.0) Eosinophils (%) (Auto) 0.9 % (0.0-3.0) 1.1 % (0.0-3.0) 1.6 % (0.0-3.0) Basophils (%) (Auto) 1.2 % (0.0-2.0) 2.6 % (0.0-2.0) 1.6 % (0.0-2.0) Sodium Level 135 MMOL/L (136-145) 141 MMOL/L (136-145) 141 MMOL/L (136-145) Potassium Level 3.8 MMOL/L (3.5-5.1) 3.4 MMOL/L (3.5-5.1) 3.2 MMOL/L (3.5-5.1) Chloride Level 99 MMOL/L (98-107) 104 MMOL/L (98-107) 103 MMOL/L (98-107) Carbon Dioxide Level 26 MMOL/L (21-32) 31 MMOL/L (21-32) 30 MMOL/L (21-32) Anion Gap 11 mmol/L (5-15) 6 mmol/L (5-15) 8 mmol/L (5-15) Blood Urea Nitrogen 48 mg/dL (7-18) 33 mg/dL (7-18) 36 mg/dL (7-18) Creatinine 3.6 MG/DL (0.55-1.30) 2.5 MG/DL (0.55-1.30) 2.9 MG/DL (0.55-1.30) Estimat Glomerular Filtration Rate 12.2 mL/min (>60) 18.6 mL/min (>60) 15.7 mL/min (>60) Glucose Level 97 MG/DL (74-106) 113 MG/DL (74-106) 76 MG/DL (74-106) Calcium Level 8.6 MG/DL (8.5-10.1) 8.8 MG/DL (8.5-10.1) 8.9 MG/DL (8.5-10.1) Total Bilirubin 0.4 MG/DL (0.2-1.0) 0.4 MG/DL (0.2-1.0) 0.5 MG/DL (0.2-1.0) Aspartate Amino Transf (AST/SGOT) 24 U/L (15-37) 32 U/L (15-37) 28 U/L (15-37) Alanine Aminotransferase (ALT/SGPT) 10 U/L (12-78) 11 U/L (12-78) < 6 U/L (12-78) Alkaline Phosphatase 148 U/L (46-116) 140 U/L (46-116) 113 U/L (46-116) Total Protein 5.7 G/DL (6.4-8.2) 5.6 G/DL (6.4-8.2) 6.2 G/DL (6.4-8.2) Albumin 1.6 G/DL (3.4-5.0) 2.0 G/DL (3.4-5.0) 1.9 G/DL (3.4-5.0) Globulin 4.1 g/dL 4.3 g/dL Albumin/Globulin Ratio 0.4 (1.0-2.7) 0.4 (1.0-2.7) Phosphorus Level 3.1 MG/DL (2.5-4.9) 3.5 MG/DL (2.5-4.9) Magnesium Level 2.4 MG/DL (1.8-2.4) 2.3 MG/DL (1.8-2.4) Direct Bilirubin < 0.1 MG/DL (0.0-0.3) C-Reactive Protein, Quantitative 6.3 mg/dL (0.00-0.90) Pro-B-Type Natriuretic Peptide > 59380 pg/mL (0-125) Height (Feet): 5 Height (Inches): 4.00 Weight (Pounds): 110 Objective gen: nad pulm: on trach+ / vent cv: rrr, no gmr abd: sfot, nt, nd ++ gt ext: no cce Gio Rob MD Aug 28, 2019 12:33
--- NOTE | 2019-08-28 12:48 | General Progress Note ---
Assessment/Plan Problem List: (1) Failure to thrive (0-17) ICD Codes: R62.51 - Failure to thrive (0-17) SNOMED: 161420216 (2) Hypertensive kidney disease ICD Codes: I12.9 - Hypertensive chronic kidney disease with stage 1 through stage 4 chronic kidney disease, or unspecified chronic kidney disease SNOMED: 29211404 (3) Pneumonia ICD Codes: J18.9 - Pneumonia, unspecified organism SNOMED: 736330722 Qualifiers: Qualified Codes: J18.9 - Pneumonia, unspecified organism (4) ESRD (end stage renal disease) ICD Codes: N18.6 - End stage renal disease SNOMED: 58352717 (5) Septic arthritis ICD Codes: M00.9 - Pyogenic arthritis, unspecified SNOMED: 291905774 (6) Thrombocytopenia ICD Codes: D69.6 - Thrombocytopenia, unspecified SNOMED: 579464383 (7) Hypotension ICD Codes: I95.9 - Hypotension, unspecified SNOMED: 27174044 Qualifiers: Qualified Codes: I95.3 - Hypotension of hemodialysis (8) Malnutrition ICD Codes: E46 - Unspecified protein-calorie malnutrition SNOMED: 80193332 Status: stable, not improved, unchanged, deteriorating Assessment/Plan: cont resp care chest pt/suctioning resp rx tap effusion cont weaning- try simv try tap effusion- ?tomorrow monitor plts iv PPI iv abx perm cath replacement HD bp rx critical and guarded tube feeds per gi will d/w family trach vs terminal extubation Subjective ROS Limited/Unobtainable: No Constitutional: Reports: malaise HEENT: Reports: no symptoms Cardiovascular: Reports: no symptoms Respiratory: Reports: orthopnea, sputum Gastrointestinal/Abdominal: Reports: difficulty swallowing Genitourinary: Reports: no symptoms Neurologic/Psychiatric: Reports: pre-existing deficit Endocrine: Reports: no symptoms Hematologic/Lymphatic: Reports: anemia Allergies: Coded Allergies: VANCOMYCIN (Unverified Allergy, Unknown, 08/02/19) All Systems: reviewed and negative except above Subjective no events. on the vent. remains alert and awake. no fevers. alert. minimal congestion. +copious oral secretions cxr with mod pleural effusion. not able to wean yet. Objective Last 24 Hour Vital Signs Date Time Temp Pulse Resp B/P (MAP) Pulse Ox O2 Delivery O2 Flow Rate FiO2 08/28/19 12:00 97.9 72 20 149/78 (101) 98 08/28/19 12:00 Mechanical Ventilator Mechanical Ventilator Mechanical Ventilator Mechanical Ventilator 08/28/19 12:00 40 08/28/19 11:48 131/64 08/28/19 11:48 131/64 08/28/19 11:28 59 18 40 08/28/19 11:00 58 19 131/64 (86) 100 08/28/19 10:00 65 26 138/71 (93) 100 08/28/19 09:26 57 18 40 08/28/19 09:00 63 27 134/66 (88) 100 08/28/19 08:21 75 135/67 08/28/19 08:00 40 08/28/19 08:00 Mechanical Ventilator Mechanical Ventilator Mechanical Ventilator Mechanical Ventilator 08/28/19 08:00 97.6 59 18 135/67 (89) 100 08/28/19 07:16 98 08/28/19 07:12 67 18 40 08/28/19 07:00 64 21 138/69 (92) 100 08/28/19 06:30 68 20 08/28/19 06:00 70 22 134/90 (105) 100 08/28/19 05:34 128/69 08/28/19 05:33 128/69 08/28/19 05:00 54 19 128/69 (88) 100 08/28/19 04:45 66 18 40 08/28/19 04:00 40 08/28/19 04:00 97.9 79 19 115/103 (107) 100 08/28/19 04:00 Mechanical Ventilator Mechanical Ventilator Mechanical Ventilator Mechanical Ventilator 08/28/19 04:00 81 08/28/19 03:31 77 24 134/71 (92) 100 08/28/19 03:00 79 26 134/71 (92) 100 08/28/19 02:47 81 26 40 08/28/19 02:00 70 20 153/64 (93) 100 08/28/19 01:30 71 21 40 08/28/19 01:00 62 20 154/61 (92) 100 08/28/19 00:33 143/61 08/28/19 00:27 143/61 08/28/19 00:00 61 08/28/19 00:00 Mechanical Ventilator Mechanical Ventilator Mechanical Ventilator Mechanical Ventilator 08/28/19 00:00 98.5 63 22 143/61 (88) 100 08/28/19 00:00 40 08/27/19 23:12 73 19 40 08/27/19 23:00 61 19 149/62 (91) 100 08/27/19 22:00 70 22 141/91 (108) 100 08/27/19 21:03 65 18 40 08/27/19 21:00 61 19 128/81 (97) 100 08/27/19 20:00 Mechanical Ventilator Mechanical Ventilator Mechanical Ventilator Mechanical Ventilator 08/27/19 20:00 40 08/27/19 20:00 59 08/27/19 20:00 99.8 60 22 138/102 (114) 100 08/27/19 19:00 55 18 100 08/27/19 18:50 63 18 40 08/27/19 18:34 63 135/63 08/27/19 18:34 135/63 08/27/19 18:33 135/63 08/27/19 18:00 57 18 135/63 (87) 100 08/27/19 17:25 68 18 40 08/27/19 17:00 58 22 136/74 (94) 99 08/27/19 16:30 66 22 137/72 (93) 99 08/27/19 16:00 40 08/27/19 16:00 97.8 74 21 135/54 (81) 99 08/27/19 16:00 77 08/27/19 16:00 Mechanical Ventilator Mechanical Ventilator Mechanical Ventilator Mechanical Ventilator 08/27/19 15:07 68 18 40 08/27/19 15:00 66 22 137/72 (93) 99 08/27/19 14:00 65 18 125/56 (79) 100 08/27/19 13:00 70 23 117/54 (75) 100 Intake and Output 08/27/19 08/28/19 19:00 07:00 Intake Total 745 ml 520 ml Balance 745 ml 520 ml Intake Free Water 100 ml IV Total 100 ml Tube Feeding 455 ml 420 ml Other 190 ml # Voids 1 # Bowel Movements 3 2 Laboratory Tests 08/28/19 05:10: White Blood Count 4.4L, Red Blood Count 3.44L, Hemoglobin 10.4L, Hematocrit 31.3L, Mean Corpuscular Volume 91, Mean Corpuscular Hemoglobin 30.1, Mean Corpuscular Hemoglobin Concent 33.1, Red Cell Distribution Width 16.3H, Platelet Count 530H, Mean Platelet Volume 5.7L, Neutrophils (%) (Auto) 48.5, Lymphocytes (%) (Auto) 40.5, Monocytes (%) (Auto) 7.9, Eosinophils (%) (Auto) 1.6, Basophils (%) (Auto) 1.6, Sodium Level 141, Potassium Level 3.2L, Chloride Level 103, Carbon Dioxide Level 30, Anion Gap 8, Blood Urea Nitrogen 36H, Creatinine 2.9H, Estimat Glomerular Filtration Rate 15.7, Glucose Level 76, Calcium Level 8.9, Phosphorus Level 3.5, Magnesium Level 2.3, Total Bilirubin 0.5, Aspartate Amino Transf (AST/SGOT) 28, Alanine Aminotransferase (ALT/SGPT) < 6L, Alkaline Phosphatase 113, C-Reactive Protein, Quantitative 6.3H, Pro-B- Type Natriuretic Peptide > 88858N, Total Protein 6.2L, Albumin 1.9L, Globulin 4.3, Albumin/Globulin Ratio 0.4L Height (Feet): 5 Height (Inches): 4.00 Weight (Pounds): 110 Objective General Appearance: WD/WN, awake/moaning. orally intubated Neck: supple Cardiovascular: normal rate Respiratory/Chest: rhonchi - bilaterally Abdomen: normal bowel sounds, non tender, soft, no organomegaly Edema: no edema noted Arm (L), no edema noted Arm (R), no edema noted Leg (L), no edema noted Leg (R), no edema noted Pedal (L), no edema noted Pedal (R), no edema noted Generalized Neurologic: disoriented, aphasia Nate Beltran MD Aug 28, 2019 12:48
--- NOTE | 2019-08-28 12:58 | Surgery Progress Note ---
Surgery Progress Note Subjective Procedure Performed Right Femoral Temporary Hemodialysis catheter Insertion Additional Comments ill appearing on support not able to wean Objective Last 24 Hour Vital Signs Date Time Temp Pulse Resp B/P (MAP) Pulse Ox O2 Delivery O2 Flow Rate FiO2 08/28/19 12:00 97.9 72 20 149/78 (101) 98 08/28/19 12:00 Mechanical Ventilator Mechanical Ventilator Mechanical Ventilator Mechanical Ventilator 08/28/19 12:00 40 08/28/19 11:48 131/64 08/28/19 11:48 131/64 08/28/19 11:28 59 18 40 08/28/19 11:00 58 19 131/64 (86) 100 08/28/19 10:00 65 26 138/71 (93) 100 08/28/19 09:26 57 18 40 08/28/19 09:00 63 27 134/66 (88) 100 08/28/19 08:21 75 135/67 08/28/19 08:00 40 08/28/19 08:00 Mechanical Ventilator Mechanical Ventilator Mechanical Ventilator Mechanical Ventilator 08/28/19 08:00 97.6 59 18 135/67 (89) 100 08/28/19 07:16 98 08/28/19 07:12 67 18 40 08/28/19 07:00 64 21 138/69 (92) 100 08/28/19 06:30 68 20 08/28/19 06:00 70 22 134/90 (105) 100 08/28/19 05:34 128/69 08/28/19 05:33 128/69 08/28/19 05:00 54 19 128/69 (88) 100 08/28/19 04:45 66 18 40 08/28/19 04:00 40 08/28/19 04:00 97.9 79 19 115/103 (107) 100 08/28/19 04:00 Mechanical Ventilator Mechanical Ventilator Mechanical Ventilator Mechanical Ventilator 08/28/19 04:00 81 08/28/19 03:31 77 24 134/71 (92) 100 08/28/19 03:00 79 26 134/71 (92) 100 08/28/19 02:47 81 26 40 08/28/19 02:00 70 20 153/64 (93) 100 08/28/19 01:30 71 21 40 08/28/19 01:00 62 20 154/61 (92) 100 08/28/19 00:33 143/61 08/28/19 00:27 143/61 08/28/19 00:00 61 08/28/19 00:00 Mechanical Ventilator Mechanical Ventilator Mechanical Ventilator Mechanical Ventilator 08/28/19 00:00 98.5 63 22 143/61 (88) 100 08/28/19 00:00 40 08/27/19 23:12 73 19 40 08/27/19 23:00 61 19 149/62 (91) 100 08/27/19 22:00 70 22 141/91 (108) 100 08/27/19 21:03 65 18 40 08/27/19 21:00 61 19 128/81 (97) 100 08/27/19 20:00 Mechanical Ventilator Mechanical Ventilator Mechanical Ventilator Mechanical Ventilator 08/27/19 20:00 40 08/27/19 20:00 59 08/27/19 20:00 99.8 60 22 138/102 (114) 100 08/27/19 19:00 55 18 100 08/27/19 18:50 63 18 40 08/27/19 18:34 63 135/63 08/27/19 18:34 135/63 08/27/19 18:33 135/63 08/27/19 18:00 57 18 135/63 (87) 100 08/27/19 17:25 68 18 40 08/27/19 17:00 58 22 136/74 (94) 99 08/27/19 16:30 66 22 137/72 (93) 99 08/27/19 16:00 40 08/27/19 16:00 97.8 74 21 135/54 (81) 99 08/27/19 16:00 77 08/27/19 16:00 Mechanical Ventilator Mechanical Ventilator Mechanical Ventilator Mechanical Ventilator 08/27/19 15:07 68 18 40 08/27/19 15:00 66 22 137/72 (93) 99 08/27/19 14:00 65 18 125/56 (79) 100 08/27/19 13:00 70 23 117/54 (75) 100 I&O Intake and Output 08/27/19 08/28/19 19:00 07:00 Intake Total 745 ml 520 ml Balance 745 ml 520 ml Intake Free Water 100 ml IV Total 100 ml Tube Feeding 455 ml 420 ml Other 190 ml # Voids 1 # Bowel Movements 3 2 Dressing: other Wound: other Drains: other Cardiovascular: RSR Respiratory: decreased breath sounds Abdomen: soft, non-tender, present bowel sounds Extremities: no cyanosis Laboratory Tests Test 08/28/19 05:10 White Blood Count 4.4 K/UL (4.8-10.8) L Red Blood Count 3.44 M/UL (4.20-5.40) L Hemoglobin 10.4 G/DL (12.0-16.0) L Hematocrit 31.3 % (37.0-47.0) L Mean Corpuscular Volume 91 FL (80-99) Mean Corpuscular Hemoglobin 30.1 PG (27.0-31.0) Mean Corpuscular Hemoglobin Concent 33.1 G/DL (32.0-36.0) Red Cell Distribution Width 16.3 % (11.6-14.8) H Platelet Count 530 K/UL (150-450) H Mean Platelet Volume 5.7 FL (6.5-10.1) L Neutrophils (%) (Auto) 48.5 % (45.0-75.0) Lymphocytes (%) (Auto) 40.5 % (20.0-45.0) Monocytes (%) (Auto) 7.9 % (1.0-10.0) Eosinophils (%) (Auto) 1.6 % (0.0-3.0) Basophils (%) (Auto) 1.6 % (0.0-2.0) Sodium Level 141 MMOL/L (136-145) Potassium Level 3.2 MMOL/L (3.5-5.1) L Chloride Level 103 MMOL/L (98-107) Carbon Dioxide Level 30 MMOL/L (21-32) Anion Gap 8 mmol/L (5-15) Blood Urea Nitrogen 36 mg/dL (7-18) H Creatinine 2.9 MG/DL (0.55-1.30) H Estimat Glomerular Filtration Rate 15.7 mL/min (>60) Glucose Level 76 MG/DL (74-106) Calcium Level 8.9 MG/DL (8.5-10.1) Phosphorus Level 3.5 MG/DL (2.5-4.9) Magnesium Level 2.3 MG/DL (1.8-2.4) Total Bilirubin 0.5 MG/DL (0.2-1.0) Aspartate Amino Transf (AST/SGOT) 28 U/L (15-37) Alanine Aminotransferase (ALT/SGPT) < 6 U/L (12-78) L Alkaline Phosphatase 113 U/L (46-116) C-Reactive Protein, Quantitative 6.3 mg/dL (0.00-0.90) H Pro-B-Type Natriuretic Peptide > 59171 pg/mL (0-125) H Total Protein 6.2 G/DL (6.4-8.2) L Albumin 1.9 G/DL (3.4-5.0) L Globulin 4.3 g/dL Albumin/Globulin Ratio 0.4 (1.0-2.7) L Assessment Post-op Diagnosis same Plan Problems: (1) Malnutrition Assessment & Plan: DAILY ESTIMATED NEEDS: Needs based on ESRD+ HD, underweight, wound/ 39.5kg 35-40 kcals/kg 4610-3400 total kcals 1.25-1.8 g protein/kg 49-71 g total protein 20-22 mL/kg 790-869 total fluid mLs NUTRITION DIAGNOSIS: * Increased kcal and protein needs r/t underweight status, HD needs, wuond healing as evidenced by pt is underweight per guidelines, ESRD, on HD, admitted non-blanching erythema wounds @ BL heels and sacrum * Swallowing difficulty R/T dysphagia as evidenced by NUMERICAL CONTROL MACHINE OPERATOR recommends temporary nonoral feeding at this time, s/p NGT insertion, on NGT feeding-> now s/p self removal, NPO. CURRENT TF:NPO PO DIET RECOMMENDATIONS: WHEN SAFE FOR ORAL DIET -> renal/ texture per NUMERICAL CONTROL MACHINE OPERATOR ENTERAL NUTRITION RECOMMENDATIONS: W/ GI access: Nepro @ 35ml/hr x 22 hrs to provide 770ml, 1386kcal, 62g prot, 560ml free water * W/ GI access, resume TF on Nepro * Initiate Nepro @ 15ml/hr x 6 hrs, advance 10ml q 4-6 hrs as tolerated to goal rate. * Hold 1 hour before and after Synthroid med * HOB over 30 degrees/ water flush per MD. ADDITIONAL RECOMMENDATIONS: 1) Calibrated bed scale wt for accurate CBW -> daily wt monitoring Per HD record: dry wt on 07/30=39.5kg (87lbs) 2) Wound care: (W/ GI access) add Nephorivte x 1 + Balta BID 3) Monitor NPO status: without GI access at this time, s/p pulling out NGT 4) Monitor for hypoglycemia while NPO 5) Monitor for continuity of HD (2) Septic arthritis Assessment & Plan: Pt presented on admission with generalized scaly rash . pt noted to be restless and scratching at skin. Bleeding from oral mucosa noted. Joint deformity noted to R shoulder. Surgical incision approximated with 11 sutures. Erythema but no exudate,or elevation in skin temp at site of incision. Historical incision R hip that is tunneled.Small amt seropurulent exudate noted. Periwound is erythematous,but no elevation in skin temp noted. No odor noted. Non-blanching erythema noted to sacrum. Perianal area is erythematous and excoriated. L heel is boggy with non-blanching erythema. R heel is soft with non-blanching erythema. No evidence of skin breakdown to all other bony prominences. Tx.plan: Cover R shoulder with Drsg and change daily and prn. Cleanse R hip wound with Saline. Apply Therahoney.Apply Cavilon Skin Barrier periwound. Cover with Optifoam drsg. Change every 3 days and prn. Apply Moisture Barrier Paste to perianal area and buttocks. Cover Sacrum with Optifoam drsg. Change every 3 days and prn. Apply Cavilon Skin Barrier to both heels. Cover each heel with Optifoam drsg. Change every 7 days and prn. APM/ELVIA Mattress overlay. Reposition at least every 2hours or as tolerated. Off-load heels with pillow. HD cath necessary HD as renal likely will need intubation (3) Wound, open, hip or thigh with complication Assessment & Plan: slow healing will need nutritional optimization difficult ng tube peg when stable sutures removed from right shoulder comfortable wean vent may need trach (4) Abscess of right hip (5) possible septic arthritis Camilo James Aug 28, 2019 12:58
[2019-08-28] MEDS ORDERED: Tubing IV Secondary IV ONE ×2 (14:07→14:09)
[2019-08-28] MEDS ORDERED: NS 275ml ONE ×2 (14:07→14:09)
[2019-08-28] MEDS ORDERED: NS 500ML ONE (14:09)
--- NOTE | 2019-08-28 18:00 | General Progress Note ---
Assessment/Plan Status: stable, not improved, unchanged, deteriorating Assessment/Plan: Assessment - Severe ulcerative esophagitis on endoscopy - on BID PPI - Resp failure --> now intubated - thrombocytopenia --> resolved - Renal failure --> now on HD, stablized - aspiration risk --> s/p PEG - anemia - bradycardia - Poor prognosis Recommendations - Continue TF - reduce water flushes - elevate HOB - monitor H&H Subjective Allergies: Coded Allergies: VANCOMYCIN (Unverified Allergy, Unknown, 08/02/19) Subjective Above noted No events overnight tolerating TF Objective Last 24 Hour Vital Signs Date Time Temp Pulse Resp B/P (MAP) Pulse Ox O2 Delivery O2 Flow Rate FiO2 08/28/19 17:46 76 150/73 08/28/19 17:46 150/73 08/28/19 17:45 150/73 08/28/19 16:00 97.9 65 22 150/73 (98) 100 08/28/19 16:00 Mechanical Ventilator Mechanical Ventilator Mechanical Ventilator Mechanical Ventilator 08/28/19 16:00 40 08/28/19 15:23 63 19 40 08/28/19 15:00 70 19 133/67 (89) 100 08/28/19 14:00 77 24 143/70 (94) 99 08/28/19 13:20 68 20 40 08/28/19 13:00 73 19 141/69 (93) 100 08/28/19 12:15 67 08/28/19 12:00 97.9 72 20 149/78 (101) 98 08/28/19 12:00 Mechanical Ventilator Mechanical Ventilator Mechanical Ventilator Mechanical Ventilator 08/28/19 12:00 40 08/28/19 11:48 131/64 08/28/19 11:48 131/64 08/28/19 11:28 59 18 40 08/28/19 11:00 58 19 131/64 (86) 100 08/28/19 10:00 65 26 138/71 (93) 100 08/28/19 09:26 57 18 40 08/28/19 09:00 63 27 134/66 (88) 100 08/28/19 08:21 75 135/67 08/28/19 08:00 40 08/28/19 08:00 Mechanical Ventilator Mechanical Ventilator Mechanical Ventilator Mechanical Ventilator 08/28/19 08:00 97.6 59 18 135/67 (89) 100 08/28/19 07:42 68 08/28/19 07:16 98 08/28/19 07:12 67 18 40 08/28/19 07:00 64 21 138/69 (92) 100 08/28/19 06:30 68 20 08/28/19 06:00 70 22 134/90 (105) 100 08/28/19 05:34 128/69 08/28/19 05:33 128/69 08/28/19 05:00 54 19 128/69 (88) 100 08/28/19 04:45 66 18 40 08/28/19 04:00 40 08/28/19 04:00 97.9 79 19 115/103 (107) 100 08/28/19 04:00 Mechanical Ventilator Mechanical Ventilator Mechanical Ventilator Mechanical Ventilator 08/28/19 04:00 81 08/28/19 03:31 77 24 134/71 (92) 100 08/28/19 03:00 79 26 134/71 (92) 100 08/28/19 02:47 81 26 40 08/28/19 02:00 70 20 153/64 (93) 100 08/28/19 01:30 71 21 40 08/28/19 01:00 62 20 154/61 (92) 100 08/28/19 00:33 143/61 08/28/19 00:27 143/61 08/28/19 00:00 61 08/28/19 00:00 Mechanical Ventilator Mechanical Ventilator Mechanical Ventilator Mechanical Ventilator 08/28/19 00:00 98.5 63 22 143/61 (88) 100 08/28/19 00:00 40 08/27/19 23:12 73 19 40 08/27/19 23:00 61 19 149/62 (91) 100 08/27/19 22:00 70 22 141/91 (108) 100 08/27/19 21:03 65 18 40 08/27/19 21:00 61 19 128/81 (97) 100 08/27/19 20:00 Mechanical Ventilator Mechanical Ventilator Mechanical Ventilator Mechanical Ventilator 08/27/19 20:00 40 08/27/19 20:00 59 08/27/19 20:00 99.8 60 22 138/102 (114) 100 08/27/19 19:00 55 18 100 08/27/19 18:50 63 18 40 08/27/19 18:34 63 135/63 08/27/19 18:34 135/63 08/27/19 18:33 135/63 08/27/19 18:00 57 18 135/63 (87) 100 Intake and Output 08/27/19 08/28/19 19:00 07:00 Intake Total 745 ml 520 ml Balance 745 ml 520 ml Intake Free Water 100 ml IV Total 100 ml Tube Feeding 455 ml 420 ml Other 190 ml # Voids 1 # Bowel Movements 3 2 Laboratory Tests 08/28/19 05:10: White Blood Count 4.4L, Red Blood Count 3.44L, Hemoglobin 10.4L, Hematocrit 31.3L, Mean Corpuscular Volume 91, Mean Corpuscular Hemoglobin 30.1, Mean Corpuscular Hemoglobin Concent 33.1, Red Cell Distribution Width 16.3H, Platelet Count 530H, Mean Platelet Volume 5.7L, Neutrophils (%) (Auto) 48.5, Lymphocytes (%) (Auto) 40.5, Monocytes (%) (Auto) 7.9, Eosinophils (%) (Auto) 1.6, Basophils (%) (Auto) 1.6, Sodium Level 141, Potassium Level 3.2L, Chloride Level 103, Carbon Dioxide Level 30, Anion Gap 8, Blood Urea Nitrogen 36H, Creatinine 2.9H, Estimat Glomerular Filtration Rate 15.7, Glucose Level 76, Calcium Level 8.9, Phosphorus Level 3.5, Magnesium Level 2.3, Total Bilirubin 0.5, Aspartate Amino Transf (AST/SGOT) 28, Alanine Aminotransferase (ALT/SGPT) < 6L, Alkaline Phosphatase 113, C-Reactive Protein, Quantitative 6.3H, Pro-B- Type Natriuretic Peptide > 98308T, Total Protein 6.2L, Albumin 1.9L, Globulin 4.3, Albumin/Globulin Ratio 0.4L Height (Feet): 5 Height (Inches): 4.00 Weight (Pounds): 110 Objective Debilitated frail woman NCAT (+) ETT supple scattered ronchi RR abd soft ND NT, (+) GT no edema Cristy Elizondo MD Aug 28, 2019 18:00
[2019-08-28] MEDS: Dyna-Hex 2% Top Sol 2oz TOPIC SCH (20:09)
[2019-08-29] VITALS (28 sets, daily range): BP systolic 120–170; BP diastolic 55–112
[2019-08-29] MEDS: Nitroglycerin 2% oint pkt TOPIC SCH (00:14)
[2019-08-29] MEDS: HydrALAZINE 25mg tab NG SCH ×5 (00:14→23:53)
--- NOTE | 2019-08-29 03:15 | Progress Note ---
DATE: 08/27/2019 CARDIOLOGY PROGRESS NOTE SUBJECTIVE: The patient has continued respiratory compromise requiring ventilator support, not weanable yet. Family has not decided on tracheostomy. OBJECTIVE: VITAL SIGNS: Blood pressure 138/67, pulse 66, and respirations 22. No fevers. LUNGS: Diminished breath sounds. Rhonchi. HEART: Regular rhythm and rate. Normal S1 and S2. ABDOMEN: Soft. G-tube intact. EXTREMITIES: Trace dependent edema. LABORATORY DATA: Sodium 141, potassium 3.4, BUN 33, creatinine 2.5. Albumin 2. White count 4.9 and hemoglobin 9.8. IMPRESSION: 1. Respiratory failure. 2. Pleural effusion. 3. Healthcare-associated pneumonia. 4. Sinus bradycardia. 5. Hypertensive heart disease. 6. End-stage renal disease. 7. Advanced dementia. 8. Dysphagia with G-tube. PLAN: 1. We will need trach. Family decision pending. 2. Continue antimicrobials. 3. Respiratory hygiene. 4. Weaning efforts. 5. Thoracentesis as needed. 6. No beta-blockers. 7. Maintain current antihypertensives with titration as needed. 8. Hemodialysis with ultrafiltration for volume management. Abel Stubbs M.D. DR: MAGGIE JOB#: [id number] CC:
--- NOTE | 2019-08-29 03:30 | Progress Note ---
DATE: 08/28/2019 SUBJECTIVE: Condition remains critical. Prognosis is guarded. Continues to require ICU care. Remains on ventilator support. Thoracentesis pending. OBJECTIVE: VITAL SIGNS: Blood pressure 131/64, pulse 58, respirations 19. LUNGS: Diminished breath sounds. Scattered rhonchi. CARDIAC: Regular rhythm and rate. Normal S1, S2. A 1/6 systolic apical murmur. ABDOMEN: Soft with G-tube. EXTREMITIES: Trace dependent edema. LABORATORY DATA: White count 4.4, hemoglobin is 10.4. Sodium is 141, potassium 3.2, bicarb 30, BUN 36, creatinine 2.9. IMPRESSION: 1. Respiratory failure. 2. Pleural effusion. 3. Healthcare-associated pneumonia. 4. Hypothyroidism. 5. Sinus bradycardia. 6. Hypertensive heart disease. 7. Chronic diastolic congestive heart failure. 8. Fungemia. PLAN: 1. Likely will need trach. 2. Continue weaning efforts. 3. Thyroid replacement. 4. Cardiac monitoring. 5. Titration of antihypertensives. 6. Discontinue nitrates topically. 7. Nutrition by feeding tube. 8. Thoracentesis planned. Abel Stubbs M.D. DR: EMRE JOB#: [id number] CC:
--- NOTE | 2019-08-29 03:45 | Progress Note ---
DATE: 08/26/2019 CARDIOLOGY PROGRESS NOTE Late entry for 08/26/2019. SUBJECTIVE: The patient remains on ventilator support. Alert and awake. Minimal secretions noted. Monitored rhythm sinus with bradycardia. Chest x-ray reviewed. OBJECTIVE: VITAL SIGNS: Blood pressure 121/77, pulse 75, respirations 20, afebrile. LUNGS: Diminished breath sounds. Rhonchi. CARDIAC: Regular rhythm and rate. Normal S1, S2. A 1/6 systolic murmur at apex. ABDOMEN: Soft. G-tube intact. EXTREMITIES: No edema. LABORATORY DATA: White count 5.8, hemoglobin 9.9. Sodium 135, potassium 3.8, bicarb 26, BUN 48, creatinine 3.6. IMPRESSION: 1. Respiratory failure. 2. End-stage renal disease. 3. Status post sepsis with shock. 4. Sinus bradycardia. 5. Healthcare-associated pneumonia. PLAN: 1. Thoracentesis. 2. Respiratory hygiene. 3. Proton pump inhibitor. 4. Nutrition by feeding tube. 5. Off medications with negative potential. 6. No need for beta-elissa. 7. Hemodialysis with ultrafiltration. Abel Stubbs M.D. DR: EMRE JOB#: [id number] CC:
[2019-08-29 05:21] LABS: BASOPHILS % (AUTO) 1.5 % (0.0-2.0); EOSINOPHILS % (AUTO) 1.3 % (0.0-3.0); HEMATOCRIT 28.2 % (37.0-47.0); HEMOGLOBIN 9.5 G/DL (12.0-16.0); LYMPHOCYTES % (AUTO) 34.5 % (20.0-45.0); MEAN CORPUSCULAR VOLUME 90 FL (80-99); MONOCYTES % (AUTO) 6.8 % (1.0-10.0); NEUTROPHILS % (AUTO) 55.9 % (45.0-75.0); PLATELET COUNT 591 K/UL (150-450); RED BLOOD COUNT 3.14 M/UL (4.20-5.40); RED CELL DISTRIBUTION WIDTH 16.4 % (11.6-14.8); WHITE BLOOD COUNT 6.8 K/UL (4.8-10.8)
[2019-08-29 05:49] LABS: ALANINE AMINOTRANSFERASE 15 U/L (12-78); ALBUMIN 1.7 G/DL (3.4-5.0); ALBUMIN/GLOBULIN RATIO 0.4 (1.0-2.7); ALKALINE PHOSPHATASE 167 U/L (46-116); ANION GAP 12 mmol/L (5-15); ASPARTATE AMINO TRANSFERASE 24 U/L (15-37); BILIRUBIN,TOTAL 0.3 MG/DL (0.2-1.0); BLOOD UREA NITROGEN 35 mg/dL (7-18); CALCIUM 8.4 MG/DL (8.5-10.1); CARBON DIOXIDE 25 MMOL/L (21-32); CHLORIDE 102 MMOL/L (98-107); CREATININE 3.2 MG/DL (0.55-1.30); PHOSPHORUS 3.3 MG/DL (2.5-4.9); POTASSIUM 3.7 MMOL/L (3.5-5.1); SODIUM 139 MMOL/L (136-145)
--- NOTE | 2019-08-29 06:34 | General Progress Note ---
Assessment/Plan Problem List: (1) Hypothyroid ICD Codes: E03.9 - Hypothyroidism, unspecified SNOMED: 71754023 (2) ESRD (end stage renal disease) on dialysis ICD Codes: N18.6 - End stage renal disease; Z99.2 - Dependence on renal dialysis SNOMED: 756456204 (3) Hypotension ICD Codes: I95.9 - Hypotension, unspecified SNOMED: 22076250 Qualifiers: Qualified Codes: I95.3 - Hypotension of hemodialysis (4) Pneumonia ICD Codes: J18.9 - Pneumonia, unspecified organism SNOMED: 370018578 Qualifiers: Qualified Codes: J18.9 - Pneumonia, unspecified organism (5) Diabetes mellitus ICD Codes: E11.9 - Type 2 diabetes mellitus without complications SNOMED: 48381566 Status: stable, not improved, unchanged, deteriorating Assessment/Plan: repeat TSH, free T4 today continue Levothyroxine IV 50 mcg daily for now Subjective ROS Limited/Unobtainable: Yes Allergies: Coded Allergies: VANCOMYCIN (Unverified Allergy, Unknown, 08/02/19) Subjective events noted interval notes reviewed intubated in ICU on TF Objective Last 24 Hour Vital Signs Date Time Temp Pulse Resp B/P (MAP) Pulse Ox O2 Delivery O2 Flow Rate FiO2 08/29/19 05:15 64 18 40 08/29/19 05:00 98.0 65 23 170/112 (131) 100 08/29/19 04:00 40 08/29/19 04:00 66 24 167/108 (127) 100 08/29/19 04:00 Mechanical Ventilator Mechanical Ventilator Mechanical Ventilator Mechanical Ventilator 08/29/19 03:17 65 08/29/19 03:12 63 19 40 08/29/19 03:00 69 25 135/61 (85) 100 08/29/19 02:00 97.8 74 23 133/65 (87) 100 08/29/19 01:18 64 18 40 08/29/19 01:00 67 24 134/67 (89) 100 08/29/19 00:14 136/69 08/29/19 00:14 136/69 08/29/19 00:00 Mechanical Ventilator Mechanical Ventilator Mechanical Ventilator Mechanical Ventilator 08/29/19 00:00 58 18 136/69 (91) 100 08/28/19 23:29 69 18 40 3/15/20 23:11 63 08/28/19 23:00 97.4 58 18 132/55 (80) 100 08/28/19 22:00 65 25 131/75 (93) 100 08/28/19 21:29 67 18 40 08/28/19 21:00 57 18 137/58 (84) 100 08/28/19 20:00 40 08/28/19 20:00 98.0 64 24 138/66 (90) 100 08/28/19 20:00 Mechanical Ventilator Mechanical Ventilator Mechanical Ventilator Mechanical Ventilator 08/28/19 19:28 57 18 40 08/28/19 19:19 64 08/28/19 19:00 62 23 142/66 (91) 100 08/28/19 18:00 66 20 145/65 (91) 100 08/28/19 17:46 76 150/73 08/28/19 17:46 150/73 08/28/19 17:45 150/73 08/28/19 17:08 73 20 40 08/28/19 17:00 75 20 129/101 (110) 99 08/28/19 16:05 67 08/28/19 16:00 97.9 65 22 150/73 (98) 100 08/28/19 16:00 Mechanical Ventilator Mechanical Ventilator Mechanical Ventilator Mechanical Ventilator 08/28/19 16:00 40 08/28/19 15:23 63 19 40 08/28/19 15:00 70 19 133/67 (89) 100 08/28/19 14:00 77 24 143/70 (94) 99 08/28/19 13:20 68 20 40 08/28/19 13:00 73 19 141/69 (93) 100 08/28/19 12:15 67 08/28/19 12:00 97.9 72 20 149/78 (101) 98 08/28/19 12:00 Mechanical Ventilator Mechanical Ventilator Mechanical Ventilator Mechanical Ventilator 08/28/19 12:00 40 08/28/19 11:48 131/64 08/28/19 11:48 131/64 08/28/19 11:28 59 18 40 08/28/19 11:00 58 19 131/64 (86) 100 08/28/19 10:00 65 26 138/71 (93) 100 08/28/19 09:26 57 18 40 08/28/19 09:00 63 27 134/66 (88) 100 08/28/19 08:21 75 135/67 08/28/19 08:00 40 08/28/19 08:00 Mechanical Ventilator Mechanical Ventilator Mechanical Ventilator Mechanical Ventilator 08/28/19 08:00 97.6 59 18 135/67 (89) 100 08/28/19 07:42 68 08/28/19 07:16 98 08/28/19 07:12 67 18 40 08/28/19 07:00 64 21 138/69 (92) 100 Intake and Output 08/28/19 08/29/19 19:00 07:00 Intake Total 670 ml 400 ml Balance 670 ml 400 ml IV Total 100 ml Tube Feeding 420 ml 350 ml Other 150 ml 50 ml # Voids 1 # Bowel Movements 2 1 Laboratory Tests 08/29/19 03:50: White Blood Count 6.8#, Red Blood Count 3.14L, Hemoglobin 9.5L, Hematocrit 28.2L , Mean Corpuscular Volume 90, Mean Corpuscular Hemoglobin 30.2, Mean Corpuscular Hemoglobin Concent 33.6, Red Cell Distribution Width 16.4H, Platelet Count 591H, Mean Platelet Volume 6.0L, Neutrophils (%) (Auto) 55.9, Lymphocytes (%) (Auto) 34.5, Monocytes (%) (Auto) 6.8, Eosinophils (%) (Auto) 1.3, Basophils (%) (Auto) 1.5, Sodium Level 139, Potassium Level 3.7, Chloride Level 102, Carbon Dioxide Level 25, Anion Gap 12, Blood Urea Nitrogen 35H, Creatinine 3.2H, Estimat Glomerular Filtration Rate 13.9, Glucose Level 144H, Calcium Level 8.4L, Phosphorus Level 3.3, Magnesium Level 2.3, Total Bilirubin 0.3, Aspartate Amino Transf (AST/SGOT) 24, Alanine Aminotransferase (ALT/SGPT) 15, Alkaline Phosphatase 167H, C-Reactive Protein, Quantitative 5.4H, Pro-B- Type Natriuretic Peptide > 38872N, Total Protein 5.9L, Albumin 1.7L, Globulin 4.2, Albumin/Globulin Ratio 0.4L Height (Feet): 5 Height (Inches): 4.00 Weight (Pounds): 110 General Appearance: other - intubated EENT: other - ETT Neck: normal alignment Cardiovascular: normal rate Respiratory/Chest: decreased breath sounds Abdomen: normal bowel sounds, other - PEG Pelvis: normal external exam Objective Current Medications Medications (Trade) Dose Ordered Sig/Javier Route PRN Reason Start Time Stop Time Status Last Admin Dose Admin Albuterol/ Ipratropium (Albuterol/ Ipratropium) 3 ml Q4H PRN HHN Shortness of Breath 08/25/19 09:30 08/30/19 09:29 Amlodipine Besylate (Norvasc) 5 mg BID NG 08/23/19 01:45 09/22/19 01:44 08/28/19 17:46 Atropine Sulfate (Atropine) 1 mg Q4H PRN IVP Per rx protocol 08/13/19 08:30 09/12/19 08:29 Chlorhexidine Gluconate (Nae-Hex 2%) 1 applic DAILY@2000 TOPIC 08/15/19 20:00 09/14/19 19:59 08/28/19 20:09 Dextrose (Dextrose 50%) 50 ml Q30M PRN IV Hypoglycemia 08/11/19 10:30 09/04/19 17:44 08/22/19 15:46 Diphenhydramine HCl (Benadryl) 50 mg Q4H PRN IVP Itching 08/09/19 14:30 09/08/19 14:29 08/13/19 02:39 Epoetin Thomas (Epoetin Thomas(ESRD on dialysis)) 4,000 unit THU-THU-THU SUBQ 08/12/19 21:00 09/11/19 20:59 08/26/19 21:41 Fluconazole/ Sodium Chloride 100 ml @ 100 mls/hr Q24H IV 08/18/19 13:00 08/29/19 23:59 08/28/19 12:55 Hydralazine HCl (Apresoline) 10 mg Q4H PRN IV For High Blood Pressure 08/18/19 12:44 09/17/19 12:43 08/22/19 09:22 Hydralazine HCl (Apresoline) 25 mg Q6HR NG 08/23/19 06:00 09/22/19 05:59 08/29/19 00:14 Lansoprazole (Prevacid) 30 mg BID GT 08/19/19 09:00 09/18/19 08:59 08/28/19 17:46 Levothyroxine Sodium (Synthroid) 50 mcg DAILY@0630 ORAL 08/25/19 06:30 09/24/19 06:29 08/28/19 05:41 Metoclopramide HCl (Reglan) 5 mg Q8H PRN IVP Nausea & Vomiting 08/09/19 12:39 09/08/19 12:38 Antonio Jacome MD Aug 29, 2019 06:34
--- NOTE | 2019-08-29 08:11 | General Progress Note ---
Assessment/Plan Problem List: (1) Failure to thrive (0-17) ICD Codes: R62.51 - Failure to thrive (0-17) SNOMED: 857387693 (2) Hypertensive kidney disease ICD Codes: I12.9 - Hypertensive chronic kidney disease with stage 1 through stage 4 chronic kidney disease, or unspecified chronic kidney disease SNOMED: 64097285 (3) Pneumonia ICD Codes: J18.9 - Pneumonia, unspecified organism SNOMED: 211495602 Qualifiers: Qualified Codes: J18.9 - Pneumonia, unspecified organism (4) ESRD (end stage renal disease) ICD Codes: N18.6 - End stage renal disease SNOMED: 14164404 (5) Septic arthritis ICD Codes: M00.9 - Pyogenic arthritis, unspecified SNOMED: 343149982 (6) Thrombocytopenia ICD Codes: D69.6 - Thrombocytopenia, unspecified SNOMED: 593993797 (7) Hypotension ICD Codes: I95.9 - Hypotension, unspecified SNOMED: 03198910 Qualifiers: Qualified Codes: I95.3 - Hypotension of hemodialysis (8) Malnutrition ICD Codes: E46 - Unspecified protein-calorie malnutrition SNOMED: 76139424 Status: stable, not improved, unchanged, deteriorating Assessment/Plan: cont resp care chest pt/suctioning resp rx tap effusion cont weaning- try simv monitor plts iv PPI iv abx HD bp rx critical and guarded tube feeds per gi will d/w family trach vs terminal extubation Subjective ROS Limited/Unobtainable: No Constitutional: Reports: malaise, weakness HEENT: Reports: no symptoms Cardiovascular: Reports: no symptoms Respiratory: Reports: cough, shortness of breath Gastrointestinal/Abdominal: Reports: difficulty swallowing Genitourinary: Reports: no symptoms Neurologic/Psychiatric: Reports: anxiety Endocrine: Reports: no symptoms Hematologic/Lymphatic: Reports: anemia Allergies: Coded Allergies: VANCOMYCIN (Unverified Allergy, Unknown, 08/02/19) All Systems: reviewed and negative except above Subjective no events. on the vent. remains alert and awake. no fevers. alert. minimal congestion. +copious oral secretions cxr with mod pleural effusion. not able to wean yet. Objective Last 24 Hour Vital Signs Date Time Temp Pulse Resp B/P (MAP) Pulse Ox O2 Delivery O2 Flow Rate FiO2 08/29/19 07:16 78 21 40 08/29/19 07:00 81 31 170/81 (110) 99 08/29/19 06:39 167/87 08/29/19 06:30 70 20 08/29/19 06:00 70 20 167/87 (113) 100 08/29/19 05:15 64 18 40 08/29/19 05:00 98.0 65 23 170/112 (131) 100 08/29/19 04:00 40 08/29/19 04:00 66 24 167/108 (127) 100 08/29/19 04:00 Mechanical Ventilator Mechanical Ventilator Mechanical Ventilator Mechanical Ventilator 08/29/19 03:17 65 08/29/19 03:12 63 19 40 08/29/19 03:00 69 25 135/61 (85) 100 08/29/19 02:00 97.8 74 23 133/65 (87) 100 08/29/19 01:18 64 18 40 08/29/19 01:00 67 24 134/67 (89) 100 08/29/19 00:14 136/69 08/29/19 00:14 136/69 08/29/19 00:00 Mechanical Ventilator Mechanical Ventilator Mechanical Ventilator Mechanical Ventilator 08/29/19 00:00 58 18 136/69 (91) 100 08/28/19 23:29 69 18 40 08/28/19 23:11 63 08/28/19 23:00 97.4 58 18 132/55 (80) 100 08/28/19 22:00 65 25 131/75 (93) 100 08/28/19 21:29 67 18 40 08/28/19 21:00 57 18 137/58 (84) 100 08/28/19 20:00 40 08/28/19 20:00 98.0 64 24 138/66 (90) 100 08/28/19 20:00 Mechanical Ventilator Mechanical Ventilator Mechanical Ventilator Mechanical Ventilator 08/28/19 19:28 57 18 40 08/28/19 19:19 64 08/28/19 19:00 62 23 142/66 (91) 100 08/28/19 18:00 66 20 145/65 (91) 100 08/28/19 17:46 76 150/73 08/28/19 17:46 150/73 08/28/19 17:45 150/73 08/28/19 17:08 73 20 40 08/28/19 17:00 75 20 129/101 (110) 99 08/28/19 16:05 67 08/28/19 16:00 97.9 65 22 150/73 (98) 100 08/28/19 16:00 Mechanical Ventilator Mechanical Ventilator Mechanical Ventilator Mechanical Ventilator 08/28/19 16:00 40 08/28/19 15:23 63 19 40 08/28/19 15:00 70 19 133/67 (89) 100 08/28/19 14:00 77 24 143/70 (94) 99 08/28/19 13:20 68 20 40 08/28/19 13:00 73 19 141/69 (93) 100 08/28/19 12:15 67 08/28/19 12:00 97.9 72 20 149/78 (101) 98 08/28/19 12:00 Mechanical Ventilator Mechanical Ventilator Mechanical Ventilator Mechanical Ventilator 08/28/19 12:00 40 08/28/19 11:48 131/64 08/28/19 11:48 131/64 08/28/19 11:28 59 18 40 08/28/19 11:00 58 19 131/64 (86) 100 08/28/19 10:00 65 26 138/71 (93) 100 08/28/19 09:26 57 18 40 08/28/19 09:00 63 27 134/66 (88) 100 08/28/19 08:21 75 135/67 Intake and Output 08/28/19 08/29/19 19:00 07:00 Intake Total 670 ml 400 ml Balance 670 ml 400 ml IV Total 100 ml Tube Feeding 420 ml 350 ml Other 150 ml 50 ml # Voids 1 # Bowel Movements 2 1 Laboratory Tests 08/29/19 03:30: Thyroid Stimulating Hormone (TSH) 8.357H, Free Thyroxine 1.23 08/29/19 03:50: White Blood Count 6.8#, Red Blood Count 3.14L, Hemoglobin 9.5L, Hematocrit 28.2L , Mean Corpuscular Volume 90, Mean Corpuscular Hemoglobin 30.2, Mean Corpuscular Hemoglobin Concent 33.6, Red Cell Distribution Width 16.4H, Platelet Count 591H, Mean Platelet Volume 6.0L, Neutrophils (%) (Auto) 55.9, Lymphocytes (%) (Auto) 34.5, Monocytes (%) (Auto) 6.8, Eosinophils (%) (Auto) 1.3, Basophils (%) (Auto) 1.5, Sodium Level 139, Potassium Level 3.7, Chloride Level 102, Carbon Dioxide Level 25, Anion Gap 12, Blood Urea Nitrogen 35H, Creatinine 3.2H, Estimat Glomerular Filtration Rate 13.9, Glucose Level 144H, Calcium Level 8.4L, Phosphorus Level 3.3, Magnesium Level 2.3, Total Bilirubin 0.3, Aspartate Amino Transf (AST/SGOT) 24, Alanine Aminotransferase (ALT/SGPT) 15, Alkaline Phosphatase 167H, C-Reactive Protein, Quantitative 5.4H, Pro-B- Type Natriuretic Peptide > 95076N, Total Protein 5.9L, Albumin 1.7L, Globulin 4.2, Albumin/Globulin Ratio 0.4L Height (Feet): 5 Height (Inches): 4.00 Weight (Pounds): 110 Objective General Appearance: WD/WN, awake/moaning. orally intubated Neck: supple Cardiovascular: normal rate Respiratory/Chest: rhonchi - bilaterally Abdomen: normal bowel sounds, non tender, soft, no organomegaly Edema: no edema noted Arm (L), no edema noted Arm (R), no edema noted Leg (L), no edema noted Leg (R), no edema noted Pedal (L), no edema noted Pedal (R), no edema noted Generalized Neurologic: disoriented, aphasia Nate Beltran MD Aug 29, 2019 08:11
--- NOTE | 2019-08-29 11:40 | Infectious Diseases Prog Note ---
Assessment/Plan Assessment/Plan antibiotics : fluconazole A 1. jarad albicans fungemia s/p rx 2. right shoulder septic arthritis with staph aureus s/p rx 3. renal failure 4. thrombocytopenia resolved 7. diabetes mellitus 8. hypertension 9. respiratory failure P 1. d/c fluconazole 2. observe off antibiotics Subjective ROS Limited/Unobtainable: Yes Allergies: Coded Allergies: VANCOMYCIN (Unverified Allergy, Unknown, 08/02/19) Objective Vital Signs Last 24 Hour Vital Signs Date Time Temp Pulse Resp B/P (MAP) Pulse Ox O2 Delivery O2 Flow Rate FiO2 08/29/19 10:53 66 20 40 08/29/19 09:30 98 08/29/19 09:28 60 18 40 08/29/19 09:23 68 149/99 08/29/19 09:00 80 23 149/99 (116) 100 08/29/19 08:00 68 08/29/19 08:00 40 08/29/19 08:00 97.0 61 20 133/59 (83) 95 08/29/19 08:00 Mechanical Ventilator Mechanical Ventilator Mechanical Ventilator Mechanical Ventilator 08/29/19 07:16 78 21 40 08/29/19 07:00 81 31 170/81 (110) 99 08/29/19 07:00 81 31 170/81 (110) 99 08/29/19 06:39 167/87 08/29/19 06:30 70 20 08/29/19 06:00 71 20 167/87 (113) 94 08/29/19 06:00 70 20 167/87 (113) 100 08/29/19 05:15 64 18 40 08/29/19 05:00 65 23 170/112 (131) 100 08/29/19 05:00 98.0 65 23 170/112 (131) 100 08/29/19 04:22 66 24 167/108 (127) 100 08/29/19 04:00 40 08/29/19 04:00 66 24 167/108 (127) 100 08/29/19 04:00 Mechanical Ventilator Mechanical Ventilator Mechanical Ventilator Mechanical Ventilator 08/29/19 04:00 69 23 100 08/29/19 03:17 65 08/29/19 03:12 63 19 40 08/29/19 03:00 69 25 135/61 (85) 100 08/29/19 03:00 69 25 135/61 (85) 100 08/29/19 02:14 60 19 134/58 (83) 100 08/29/19 02:00 74 23 100 08/29/19 02:00 97.8 74 23 133/65 (87) 100 08/29/19 01:18 64 18 40 08/29/19 01:00 67 24 100 08/29/19 01:00 67 24 134/67 (89) 100 08/29/19 00:14 136/69 08/29/19 00:14 136/69 08/29/19 00:00 58 18 136/69 (91) 100 08/29/19 00:00 Mechanical Ventilator Mechanical Ventilator Mechanical Ventilator Mechanical Ventilator 08/29/19 00:00 58 18 136/69 (91) 100 08/28/19 23:29 69 18 40 08/28/19 23:11 63 08/28/19 23:00 97.4 58 18 132/55 (80) 100 08/28/19 22:00 65 25 131/75 (93) 100 08/28/19 21:29 67 18 40 08/28/19 21:00 57 18 137/58 (84) 100 08/28/19 20:00 40 08/28/19 20:00 98.0 64 24 138/66 (90) 100 08/28/19 20:00 Mechanical Ventilator Mechanical Ventilator Mechanical Ventilator Mechanical Ventilator 08/28/19 19:28 57 18 40 08/28/19 19:19 64 08/28/19 19:00 62 23 142/66 (91) 100 08/28/19 18:00 66 20 145/65 (91) 100 08/28/19 17:46 76 150/73 08/28/19 17:46 150/73 08/28/19 17:45 150/73 08/28/19 17:08 73 20 40 08/28/19 17:00 75 20 129/101 (110) 99 08/28/19 16:05 67 08/28/19 16:00 97.9 65 22 150/73 (98) 100 08/28/19 16:00 Mechanical Ventilator Mechanical Ventilator Mechanical Ventilator Mechanical Ventilator 08/28/19 16:00 40 08/28/19 15:23 63 19 40 08/28/19 15:00 70 19 133/67 (89) 100 08/28/19 14:00 77 24 143/70 (94) 99 08/28/19 13:20 68 20 40 08/28/19 13:00 73 19 141/69 (93) 100 08/28/19 12:15 67 08/28/19 12:00 97.9 72 20 149/78 (101) 98 08/28/19 12:00 Mechanical Ventilator Mechanical Ventilator Mechanical Ventilator Mechanical Ventilator 08/28/19 12:00 40 08/28/19 11:48 131/64 08/28/19 11:48 131/64 Height (Feet): 5 Height (Inches): 4.00 Weight (Pounds): 111 HEENT: other - intubated Respiratory/Chest: lungs clear Cardiovascular: normal rate, regular rhythm, no gallop/murmur Abdomen: soft, non tender Extremities: no edema, other - right groin Microbiology Date/Time Source Procedure Growth Status 08/27/19 01:00 Sputum Gram Stain - Final Complete 08/27/19 01:00 Sputum Culture - Final Jarad Albicans Complete Laboratory Tests Test 08/29/19 03:30 08/29/19 03:50 08/29/19 08:15 Thyroid Stimulating Hormone (TSH) 8.357 uiU/mL (0.358-3.740) Free Thyroxine 1.23 NG/DL (0.76-1.46) White Blood Count 6.8 K/UL (4.8-10.8) # Red Blood Count 3.14 M/UL (4.20-5.40) L Hemoglobin 9.5 G/DL (12.0-16.0) L Hematocrit 28.2 % (37.0-47.0) L Mean Corpuscular Volume 90 FL (80-99) Mean Corpuscular Hemoglobin 30.2 PG (27.0-31.0) Mean Corpuscular Hemoglobin Concent 33.6 G/DL (32.0-36.0) Red Cell Distribution Width 16.4 % (11.6-14.8) H Platelet Count 591 K/UL (150-450) H Mean Platelet Volume 6.0 FL (6.5-10.1) L Neutrophils (%) (Auto) 55.9 % (45.0-75.0) Lymphocytes (%) (Auto) 34.5 % (20.0-45.0) Monocytes (%) (Auto) 6.8 % (1.0-10.0) Eosinophils (%) (Auto) 1.3 % (0.0-3.0) Basophils (%) (Auto) 1.5 % (0.0-2.0) Sodium Level 139 MMOL/L (136-145) Potassium Level 3.7 MMOL/L (3.5-5.1) Chloride Level 102 MMOL/L (98-107) Carbon Dioxide Level 25 MMOL/L (21-32) Anion Gap 12 mmol/L (5-15) Blood Urea Nitrogen 35 mg/dL (7-18) H Creatinine 3.2 MG/DL (0.55-1.30) H Estimat Glomerular Filtration Rate 13.9 mL/min (>60) Glucose Level 144 MG/DL (74-106) H Calcium Level 8.4 MG/DL (8.5-10.1) L Phosphorus Level 3.3 MG/DL (2.5-4.9) Magnesium Level 2.3 MG/DL (1.8-2.4) Total Bilirubin 0.3 MG/DL (0.2-1.0) Aspartate Amino Transf (AST/SGOT) 24 U/L (15-37) Alanine Aminotransferase (ALT/SGPT) 15 U/L (12-78) Alkaline Phosphatase 167 U/L (46-116) H C-Reactive Protein, Quantitative 5.4 mg/dL (0.00-0.90) H Pro-B-Type Natriuretic Peptide > 42934 pg/mL (0-125) H Total Protein 5.9 G/DL (6.4-8.2) L Albumin 1.7 G/DL (3.4-5.0) L Globulin 4.2 g/dL Albumin/Globulin Ratio 0.4 (1.0-2.7) L Prothrombin Time 10.7 SEC (9.30-11.50) Prothromb Time International Ratio 1.0 (0.9-1.1) Activated Partial Thromboplast Time 29 SEC (23-33) Current Medications Medications (Trade) Dose Ordered Sig/Javier Route PRN Reason Start Time Stop Time Status Last Admin Dose Admin Albuterol/ Ipratropium (Albuterol/ Ipratropium) 3 ml Q4H PRN HHN Shortness of Breath 08/25/19 09:30 08/30/19 09:29 Amlodipine Besylate (Norvasc) 5 mg BID NG 08/23/19 01:45 09/22/19 01:44 08/29/19 09:23 Atropine Sulfate (Atropine) 1 mg Q4H PRN IVP Per rx protocol 08/13/19 08:30 09/12/19 08:29 Chlorhexidine Gluconate (Nae-Hex 2%) 1 applic DAILY@2000 TOPIC 08/15/19 20:00 09/14/19 19:59 08/28/19 20:09 Dextrose (Dextrose 50%) 50 ml Q30M PRN IV Hypoglycemia 08/11/19 10:30 09/04/19 17:44 08/22/19 15:46 Diphenhydramine HCl (Benadryl) 50 mg Q4H PRN IVP Itching 08/09/19 14:30 09/08/19 14:29 08/13/19 02:39 Epoetin Thomas (Epoetin Thomas(ESRD on dialysis)) 4,000 unit SUBQ 08/12/19 21:00 09/11/19 20:59 08/26/19 21:41 Fluconazole/ Sodium Chloride 100 ml @ 100 mls/hr Q24H IV 08/18/19 13:00 08/29/19 23:59 08/28/19 12:55 Hydralazine HCl (Apresoline) 10 mg Q4H PRN IV For High Blood Pressure 08/18/19 12:44 09/17/19 12:43 08/22/19 09:22 Hydralazine HCl (Apresoline) 25 mg Q6HR NG 08/23/19 06:00 09/22/19 05:59 08/29/19 06:39 Lansoprazole (Prevacid) 30 mg BID GT 08/19/19 09:00 09/18/19 08:59 08/29/19 09:23 Levothyroxine Sodium (Synthroid) 50 mcg DAILY@0630 ORAL 08/25/19 06:30 09/24/19 06:29 08/29/19 06:39 Metoclopramide HCl (Reglan) 5 mg Q8H PRN IVP Nausea & Vomiting 08/09/19 12:39 09/08/19 12:38 Melissa Solares MD Aug 29, 2019 11:40
--- NOTE | 2019-08-29 13:33 | Nephrology Progress Note ---
Assessment/Plan Problem List: (1) ESRD (end stage renal disease) on dialysis (2) Malnutrition (3) Anemia in CKD (chronic kidney disease) (4) Hypotension (5) Thrombocytopenia (6) Sepsis Assessment: klebsiella in blood Assessment -Early sepsis with shock. -Healthcare-associated pneumonia. -Severe protein-calorie malnutrition. -Thrombocytopenia. - End-stage renal disease. - History of hypertension. - Bradycardia. - HypoThyroid Plan Waiting for family's decision regarding the change of CODE STATUS Last dialysis August 25-Next dialysis August 29 K supplement as needed Due to her overall medical condition I favor DNR and comfort care Blood pressure fluctuating, will start hydralazine via NG tube for blood pressure Magnesium and potassium supplement intravenously as needed Patient underwent PEG placement August 16 patient remains intubated on ventilator Discussed with RN Aim to wean from ventilator or consider tracheostomy Permacath was removed on August 12 Dialysis 08/11 Transfusion as needed Patient had hematemesis meds IV as possible Surveillance blood cultures tomorrow Plan to put the permacath back in on Thursday if cultures are negative keep BP and BS in check Inflammatory markers per orders Subjective ROS Limited/Unobtainable: Yes Objective Objective Last 24 Hour Vital Signs Date Time Temp Pulse Resp B/P (MAP) Pulse Ox O2 Delivery O2 Flow Rate FiO2 08/29/19 12:32 147/77 08/29/19 12:00 40 08/29/19 12:00 Mechanical Ventilator Mechanical Ventilator Mechanical Ventilator Mechanical Ventilator 08/29/19 12:00 97.2 69 27 147/77 (100) 99 08/29/19 11:00 65 16 144/63 (90) 93 08/29/19 10:53 66 20 40 08/29/19 10:00 60 18 149/67 (94) 99 08/29/19 09:30 98 08/29/19 09:28 60 18 40 08/29/19 09:23 68 149/99 08/29/19 09:00 80 23 149/99 (116) 100 08/29/19 08:00 68 08/29/19 08:00 40 08/29/19 08:00 97.0 61 20 133/59 (83) 95 08/29/19 08:00 Mechanical Ventilator Mechanical Ventilator Mechanical Ventilator Mechanical Ventilator 08/29/19 07:16 78 21 40 08/29/19 07:00 81 31 170/81 (110) 99 08/29/19 07:00 81 31 170/81 (110) 99 08/29/19 06:39 167/87 08/29/19 06:30 70 20 08/29/19 06:00 71 20 167/87 (113) 94 08/29/19 06:00 70 20 167/87 (113) 100 08/29/19 05:15 64 18 40 08/29/19 05:00 65 23 170/112 (131) 100 08/29/19 05:00 98.0 65 23 170/112 (131) 100 08/29/19 04:22 66 24 167/108 (127) 100 08/29/19 04:00 40 08/29/19 04:00 66 24 167/108 (127) 100 08/29/19 04:00 Mechanical Ventilator Mechanical Ventilator Mechanical Ventilator Mechanical Ventilator 08/29/19 04:00 69 23 100 08/29/19 03:17 65 08/29/19 03:12 63 19 40 08/29/19 03:00 69 25 135/61 (85) 100 08/29/19 03:00 69 25 135/61 (85) 100 08/29/19 02:14 60 19 134/58 (83) 100 08/29/19 02:00 74 23 100 08/29/19 02:00 97.8 74 23 133/65 (87) 100 08/29/19 01:18 64 18 40 08/29/19 01:00 67 24 100 08/29/19 01:00 67 24 134/67 (89) 100 08/29/19 00:14 136/69 08/29/19 00:14 136/69 08/29/19 00:00 58 18 136/69 (91) 100 08/29/19 00:00 Mechanical Ventilator Mechanical Ventilator Mechanical Ventilator Mechanical Ventilator 08/29/19 00:00 58 18 136/69 (91) 100 08/28/19 23:29 69 18 40 08/28/19 23:11 63 08/28/19 23:00 97.4 58 18 132/55 (80) 100 08/28/19 22:00 65 25 131/75 (93) 100 08/28/19 21:29 67 18 40 08/28/19 21:00 57 18 137/58 (84) 100 08/28/19 20:00 40 08/28/19 20:00 98.0 64 24 138/66 (90) 100 08/28/19 20:00 Mechanical Ventilator Mechanical Ventilator Mechanical Ventilator Mechanical Ventilator 08/28/19 19:28 57 18 40 08/28/19 19:19 64 08/28/19 19:00 62 23 142/66 (91) 100 08/28/19 18:00 66 20 145/65 (91) 100 08/28/19 17:46 76 150/73 08/28/19 17:46 150/73 08/28/19 17:45 150/73 08/28/19 17:08 73 20 40 08/28/19 17:00 75 20 129/101 (110) 99 08/28/19 16:05 67 08/28/19 16:00 97.9 65 22 150/73 (98) 100 08/28/19 16:00 Mechanical Ventilator Mechanical Ventilator Mechanical Ventilator Mechanical Ventilator 08/28/19 16:00 40 08/28/19 15:23 63 19 40 08/28/19 15:00 70 19 133/67 (89) 100 08/28/19 14:00 77 24 143/70 (94) 99 Intake and Output 08/28/19 08/29/19 19:00 07:00 Intake Total 670 ml 400 ml Balance 670 ml 400 ml IV Total 100 ml Tube Feeding 420 ml 350 ml Other 150 ml 50 ml # Voids 1 # Bowel Movements 2 1 Laboratory Tests 08/29/19 03:30: Thyroid Stimulating Hormone (TSH) 8.357H, Free Thyroxine 1.23 08/29/19 03:50: White Blood Count 6.8#, Red Blood Count 3.14L, Hemoglobin 9.5L, Hematocrit 28.2L , Mean Corpuscular Volume 90, Mean Corpuscular Hemoglobin 30.2, Mean Corpuscular Hemoglobin Concent 33.6, Red Cell Distribution Width 16.4H, Platelet Count 591H, Mean Platelet Volume 6.0L, Neutrophils (%) (Auto) 55.9, Lymphocytes (%) (Auto) 34.5, Monocytes (%) (Auto) 6.8, Eosinophils (%) (Auto) 1.3, Basophils (%) (Auto) 1.5, Sodium Level 139, Potassium Level 3.7, Chloride Level 102, Carbon Dioxide Level 25, Anion Gap 12, Blood Urea Nitrogen 35H, Creatinine 3.2H, Estimat Glomerular Filtration Rate 13.9, Glucose Level 144H, Calcium Level 8.4L, Phosphorus Level 3.3, Magnesium Level 2.3, Total Bilirubin 0.3, Aspartate Amino Transf (AST/SGOT) 24, Alanine Aminotransferase (ALT/SGPT) 15, Alkaline Phosphatase 167H, C-Reactive Protein, Quantitative 5.4H, Pro-B- Type Natriuretic Peptide > 37890B, Total Protein 5.9L, Albumin 1.7L, Globulin 4.2, Albumin/Globulin Ratio 0.4L 08/29/19 08:15: Prothrombin Time 10.7, Prothromb Time International Ratio 1.0, Activated Partial Thromboplast Time 29 Height (Feet): 5 Height (Inches): 4.00 Weight (Pounds): 111 General Appearance: no apparent distress EENT: other - Remains intubated Cardiovascular: normal rate Respiratory/Chest: decreased breath sounds Abdomen: soft Objective no change William Blackwood MD Aug 29, 2019 13:33
--- NOTE | 2019-08-29 15:51 | Surgery Progress Note ---
Surgery Progress Note Subjective Procedure Performed Right Femoral Temporary Hemodialysis catheter Insertion Symptoms: worse Objective Last 24 Hour Vital Signs Date Time Temp Pulse Resp B/P (MAP) Pulse Ox O2 Delivery O2 Flow Rate FiO2 08/29/19 15:29 70 19 40 08/29/19 14:00 59 19 143/60 (87) 100 08/29/19 13:00 62 27 140/59 (86) 100 08/29/19 12:32 147/77 08/29/19 12:00 40 08/29/19 12:00 Mechanical Ventilator Mechanical Ventilator Mechanical Ventilator Mechanical Ventilator 08/29/19 12:00 97.2 69 27 147/77 (100) 99 08/29/19 11:26 65 08/29/19 11:00 65 16 144/63 (90) 93 08/29/19 10:53 66 20 40 08/29/19 10:00 60 18 149/67 (94) 99 08/29/19 09:30 98 08/29/19 09:28 60 18 40 08/29/19 09:23 68 149/99 08/29/19 09:00 80 23 149/99 (116) 100 08/29/19 08:00 68 08/29/19 08:00 40 08/29/19 08:00 97.0 61 20 133/59 (83) 95 08/29/19 08:00 Mechanical Ventilator Mechanical Ventilator Mechanical Ventilator Mechanical Ventilator 08/29/19 07:16 78 21 40 08/29/19 07:00 81 31 170/81 (110) 99 08/29/19 07:00 81 31 170/81 (110) 99 08/29/19 06:39 167/87 08/29/19 06:30 70 20 08/29/19 06:00 71 20 167/87 (113) 94 08/29/19 06:00 70 20 167/87 (113) 100 08/29/19 05:15 64 18 40 08/29/19 05:00 65 23 170/112 (131) 100 08/29/19 05:00 98.0 65 23 170/112 (131) 100 08/29/19 04:22 66 24 167/108 (127) 100 08/29/19 04:00 40 08/29/19 04:00 66 24 167/108 (127) 100 08/29/19 04:00 Mechanical Ventilator Mechanical Ventilator Mechanical Ventilator Mechanical Ventilator 08/29/19 04:00 69 23 100 08/29/19 03:17 65 08/29/19 03:12 63 19 40 08/29/19 03:00 69 25 135/61 (85) 100 08/29/19 03:00 69 25 135/61 (85) 100 08/29/19 02:14 60 19 134/58 (83) 100 08/29/19 02:00 74 23 100 08/29/19 02:00 97.8 74 23 133/65 (87) 100 08/29/19 01:18 64 18 40 08/29/19 01:00 67 24 100 08/29/19 01:00 67 24 134/67 (89) 100 08/29/19 00:14 136/69 08/29/19 00:14 136/69 08/29/19 00:00 58 18 136/69 (91) 100 08/29/19 00:00 Mechanical Ventilator Mechanical Ventilator Mechanical Ventilator Mechanical Ventilator 08/29/19 00:00 58 18 136/69 (91) 100 08/28/19 23:29 69 18 40 08/28/19 23:11 63 08/28/19 23:00 97.4 58 18 132/55 (80) 100 08/28/19 22:00 65 25 131/75 (93) 100 08/28/19 21:29 67 18 40 08/28/19 21:00 57 18 137/58 (84) 100 08/28/19 20:00 40 08/28/19 20:00 98.0 64 24 138/66 (90) 100 08/28/19 20:00 Mechanical Ventilator Mechanical Ventilator Mechanical Ventilator Mechanical Ventilator 08/28/19 19:28 57 18 40 08/28/19 19:19 64 08/28/19 19:00 62 23 142/66 (91) 100 08/28/19 18:00 66 20 145/65 (91) 100 08/28/19 17:46 76 150/73 08/28/19 17:46 150/73 08/28/19 17:45 150/73 08/28/19 17:08 73 20 40 08/28/19 17:00 75 20 129/101 (110) 99 08/28/19 16:05 67 08/28/19 16:00 97.9 65 22 150/73 (98) 100 08/28/19 16:00 Mechanical Ventilator Mechanical Ventilator Mechanical Ventilator Mechanical Ventilator 08/28/19 16:00 40 I&O Intake and Output 08/28/19 08/29/19 19:00 07:00 Intake Total 670 ml 400 ml Balance 670 ml 400 ml IV Total 100 ml Tube Feeding 420 ml 350 ml Other 150 ml 50 ml # Voids 1 # Bowel Movements 2 1 Dressing: other Wound: other Drains: other Cardiovascular: RSR Respiratory: decreased breath sounds Abdomen: soft, non-tender, present bowel sounds Extremities: no cyanosis Laboratory Tests Test 08/29/19 03:30 08/29/19 03:50 08/29/19 08:15 Thyroid Stimulating Hormone (TSH) 8.357 uiU/mL (0.358-3.740) Free Thyroxine 1.23 NG/DL (0.76-1.46) White Blood Count 6.8 K/UL (4.8-10.8) # Red Blood Count 3.14 M/UL (4.20-5.40) L Hemoglobin 9.5 G/DL (12.0-16.0) L Hematocrit 28.2 % (37.0-47.0) L Mean Corpuscular Volume 90 FL (80-99) Mean Corpuscular Hemoglobin 30.2 PG (27.0-31.0) Mean Corpuscular Hemoglobin Concent 33.6 G/DL (32.0-36.0) Red Cell Distribution Width 16.4 % (11.6-14.8) H Platelet Count 591 K/UL (150-450) H Mean Platelet Volume 6.0 FL (6.5-10.1) L Neutrophils (%) (Auto) 55.9 % (45.0-75.0) Lymphocytes (%) (Auto) 34.5 % (20.0-45.0) Monocytes (%) (Auto) 6.8 % (1.0-10.0) Eosinophils (%) (Auto) 1.3 % (0.0-3.0) Basophils (%) (Auto) 1.5 % (0.0-2.0) Sodium Level 139 MMOL/L (136-145) Potassium Level 3.7 MMOL/L (3.5-5.1) Chloride Level 102 MMOL/L (98-107) Carbon Dioxide Level 25 MMOL/L (21-32) Anion Gap 12 mmol/L (5-15) Blood Urea Nitrogen 35 mg/dL (7-18) H Creatinine 3.2 MG/DL (0.55-1.30) H Estimat Glomerular Filtration Rate 13.9 mL/min (>60) Glucose Level 144 MG/DL (74-106) H Calcium Level 8.4 MG/DL (8.5-10.1) L Phosphorus Level 3.3 MG/DL (2.5-4.9) Magnesium Level 2.3 MG/DL (1.8-2.4) Total Bilirubin 0.3 MG/DL (0.2-1.0) Aspartate Amino Transf (AST/SGOT) 24 U/L (15-37) Alanine Aminotransferase (ALT/SGPT) 15 U/L (12-78) Alkaline Phosphatase 167 U/L (46-116) H C-Reactive Protein, Quantitative 5.4 mg/dL (0.00-0.90) H Pro-B-Type Natriuretic Peptide > 32766 pg/mL (0-125) H Total Protein 5.9 G/DL (6.4-8.2) L Albumin 1.7 G/DL (3.4-5.0) L Globulin 4.2 g/dL Albumin/Globulin Ratio 0.4 (1.0-2.7) L Prothrombin Time 10.7 SEC (9.30-11.50) Prothromb Time International Ratio 1.0 (0.9-1.1) Activated Partial Thromboplast Time 29 SEC (23-33) Assessment Post-op Diagnosis same Plan Problems: (1) Malnutrition Assessment & Plan: DAILY ESTIMATED NEEDS: Needs based on ESRD+ HD, underweight, wound/ 39.5kg 35-40 kcals/kg 0606-9927 total kcals 1.25-1.8 g protein/kg 49-71 g total protein 20-22 mL/kg 790-869 total fluid mLs NUTRITION DIAGNOSIS: * Increased kcal and protein needs r/t underweight status, HD needs, wuond healing as evidenced by pt is underweight per guidelines, ESRD, on HD, admitted non-blanching erythema wounds @ BL heels and sacrum * Swallowing difficulty R/T dysphagia as evidenced by [employer] OF [employer] OFFICER recommends temporary nonoral feeding at this time, s/p NGT insertion, on NGT feeding-> now s/p self removal, NPO. CURRENT TF:NPO PO DIET RECOMMENDATIONS: WHEN SAFE FOR ORAL DIET -> renal/ texture per [employer] OF [employer] OFFICER ENTERAL NUTRITION RECOMMENDATIONS: W/ GI access: Nepro @ 35ml/hr x 22 hrs to provide 770ml, 1386kcal, 62g prot, 560ml free water * W/ GI access, resume TF on Nepro * Initiate Nepro @ 15ml/hr x 6 hrs, advance 10ml q 4-6 hrs as tolerated to goal rate. * Hold 1 hour before and after Synthroid med * HOB over 30 degrees/ water flush per MD. ADDITIONAL RECOMMENDATIONS: 1) Calibrated bed scale wt for accurate CBW -> daily wt monitoring Per HD record: dry wt on 07/30=39.5kg (87lbs) 2) Wound care: (W/ GI access) add Nephorivte x 1 + Balta BID 3) Monitor NPO status: without GI access at this time, s/p pulling out NGT 4) Monitor for hypoglycemia while NPO 5) Monitor for continuity of HD (2) Septic arthritis Assessment & Plan: Pt presented on admission with generalized scaly rash . pt noted to be restless and scratching at skin. Bleeding from oral mucosa noted. Joint deformity noted to R shoulder. Surgical incision approximated with 11 sutures. Erythema but no exudate,or elevation in skin temp at site of incision. Historical incision R hip that is tunneled.Small amt seropurulent exudate noted. Periwound is erythematous,but no elevation in skin temp noted. No odor noted. Non-blanching erythema noted to sacrum. Perianal area is erythematous and excoriated. L heel is boggy with non-blanching erythema. R heel is soft with non-blanching erythema. No evidence of skin breakdown to all other bony prominences. Tx.plan: Cover R shoulder with Drsg and change daily and prn. Cleanse R hip wound with Saline. Apply Therahoney.Apply Cavilon Skin Barrier periwound. Cover with Optifoam drsg. Change every 3 days and prn. Apply Moisture Barrier Paste to perianal area and buttocks. Cover Sacrum with Optifoam drsg. Change every 3 days and prn. Apply Cavilon Skin Barrier to both heels. Cover each heel with Optifoam drsg. Change every 7 days and prn. APM/ELVIA Mattress overlay. Reposition at least every 2hours or as tolerated. Off-load heels with pillow. HD cath necessary HD as renal likely will need intubation (3) Wound, open, hip or thigh with complication Assessment & Plan: slow healing will need nutritional optimization difficult ng tube peg when stable sutures removed from right shoulder comfortable wean vent may need trach (4) Abscess of right hip (5) possible septic arthritis Camilo James Aug 29, 2019 15:51
--- NOTE | 2019-08-29 17:10 | Pre-Procedure Note/Attestation ---
Pre-Procedure Note/Attestation Complete Prior to Procedure Planned Procedure: left Procedure Narrative: thoracentesis Indications for Procedure Pre-Operative Diagnosis: pleural effusion Attestation I attest that I discussed the nature of the procedure; its benefits; risks and complications; and alternatives (and the risks and benefits of such alternatives ), prior to the procedure, with the patient (or the patient's legal territory sales representative). I attest that, if there was a reasonable possibility of needing a blood transfusion, the patient (or the patient's legal territory sales representative) was given the [facility] standardized written summary, pursuant to the Carlos Justin Blood Safety Act ([place] Health and Safety Code # 1645, as amended). I attest that I re-evaluated the patient just prior to the surgery and that there has been no change in the patient's H&P, except as documented below: Sulaiman Hurtado MD Aug 29, 2019 17:10
--- NOTE | 2019-08-29 17:54 | Critical Care Progress Note ---
Assessment/Plan Assessment/Plan respiratory failure hemoptysis resolved hypoxemia chronic renal failure toxic met encephalopathy severe protein calorie malnutrition cachexia left lung whiteout/collapse, improved with intubation s/p intubation anemia pulmonary edema with elevated BNP + pleural effusion PLAN thoracentesis ordered but not yet done care noted and reviewed poor volumes on weaning- reviewed RT noted failed weaning past few days- 3rd spacing noted d/w family as to trach vs terminal care; per Dr. Beltran keep negative as able and increase protein levels antibiotics noted close follow up discussed elevated head and monitor ROM watch fluid status nutrition as able isolation as needed off load as able and monitor skin exam ROM as able ICU care and management critical at present requires ICU management and close follow up care feeds as able and monitor residuals medications/laboratory data/nursing notes/ICU care reviewed in detail note reviewed and edited care discussed with RN and RT ICU time spent >40 minutes coordinating care Critical Care - Subjective Interval Events: care noted overall findings discussed seen earlier follow up ICU care reviewed ROS Limited/Unobtainable: Yes Condition: critical EKG Rhythm: Sinus Rhythm Residuals: minimal Tube Feeding Tolerated: yes I&O: Intake and Output 08/28/19 08/29/19 19:00 07:00 Intake Total 670 ml 400 ml Balance 670 ml 400 ml IV Total 100 ml Tube Feeding 420 ml 350 ml Other 150 ml 50 ml # Voids 1 # Bowel Movements 2 1 Critical Care - Objective ET-Tube: 7.0 ET Position: 18 Last 24 Hour Vital Signs Date Time Temp Pulse Resp B/P (MAP) Pulse Ox O2 Delivery O2 Flow Rate FiO2 08/29/19 17:10 55 18 40 08/29/19 17:00 54 25 120/58 (78) 98 08/29/19 16:00 40 08/29/19 16:00 54 08/29/19 16:00 97.0 63 19 131/64 (86) 93 08/29/19 15:29 70 19 40 08/29/19 15:00 86 25 131/74 (93) 87 08/29/19 14:00 59 19 143/60 (87) 100 08/29/19 13:00 62 27 140/59 (86) 100 08/29/19 12:32 147/77 08/29/19 12:00 40 08/29/19 12:00 Mechanical Ventilator Mechanical Ventilator Mechanical Ventilator Mechanical Ventilator 08/29/19 12:00 97.2 69 27 147/77 (100) 99 08/29/19 11:26 65 08/29/19 11:00 65 16 144/63 (90) 93 08/29/19 10:53 66 20 40 08/29/19 10:00 60 18 149/67 (94) 99 08/29/19 09:30 98 08/29/19 09:28 60 18 40 08/29/19 09:23 68 149/99 08/29/19 09:00 80 23 149/99 (116) 100 08/29/19 08:00 68 08/29/19 08:00 40 08/29/19 08:00 97.0 61 20 133/59 (83) 95 08/29/19 08:00 Mechanical Ventilator Mechanical Ventilator Mechanical Ventilator Mechanical Ventilator 08/29/19 07:16 78 21 40 08/29/19 07:00 81 31 170/81 (110) 99 08/29/19 07:00 81 31 170/81 (110) 99 08/29/19 06:39 167/87 08/29/19 06:30 70 20 08/29/19 06:00 71 20 167/87 (113) 94 08/29/19 06:00 70 20 167/87 (113) 100 08/29/19 05:15 64 18 40 08/29/19 05:00 65 23 170/112 (131) 100 08/29/19 05:00 98.0 65 23 170/112 (131) 100 08/29/19 04:22 66 24 167/108 (127) 100 08/29/19 04:00 40 08/29/19 04:00 66 24 167/108 (127) 100 08/29/19 04:00 Mechanical Ventilator Mechanical Ventilator Mechanical Ventilator Mechanical Ventilator 08/29/19 04:00 69 23 100 08/29/19 03:17 65 08/29/19 03:12 63 19 40 08/29/19 03:00 69 25 135/61 (85) 100 08/29/19 03:00 69 25 135/61 (85) 100 08/29/19 02:14 60 19 134/58 (83) 100 08/29/19 02:00 74 23 100 08/29/19 02:00 97.8 74 23 133/65 (87) 100 08/29/19 01:18 64 18 40 08/29/19 01:00 67 24 100 08/29/19 01:00 67 24 134/67 (89) 100 08/29/19 00:14 136/69 08/29/19 00:14 136/69 08/29/19 00:00 58 18 136/69 (91) 100 08/29/19 00:00 Mechanical Ventilator Mechanical Ventilator Mechanical Ventilator Mechanical Ventilator 08/29/19 00:00 58 18 136/69 (91) 100 08/28/19 23:29 69 18 40 08/28/19 23:11 63 08/28/19 23:00 97.4 58 18 132/55 (80) 100 08/28/19 22:00 65 25 131/75 (93) 100 08/28/19 21:29 67 18 40 08/28/19 21:00 57 18 137/58 (84) 100 08/28/19 20:00 40 08/28/19 20:00 98.0 64 24 138/66 (90) 100 08/28/19 20:00 Mechanical Ventilator Mechanical Ventilator Mechanical Ventilator Mechanical Ventilator 08/28/19 19:28 57 18 40 08/28/19 19:19 64 08/28/19 19:00 62 23 142/66 (91) 100 08/28/19 18:00 66 20 145/65 (91) 100 Labs: Labs Test 08/27/19 08:00 08/28/19 05:10 08/29/19 03:30 08/29/19 03:50 White Blood Count 4.9 K/UL (4.8-10.8) 4.4 K/UL (4.8-10.8) 6.8 K/UL (4.8-10.8) Red Blood Count 3.21 M/UL (4.20-5.40) 3.44 M/UL (4.20-5.40) 3.14 M/UL (4.20-5.40) Hemoglobin 9.8 G/DL (12.0-16.0) 10.4 G/DL (12.0-16.0) 9.5 G/DL (12.0-16.0) Hematocrit 28.7 % (37.0-47.0) 31.3 % (37.0-47.0) 28.2 % (37.0-47.0) Mean Corpuscular Volume 89 FL (80-99) 91 FL (80-99) 90 FL (80-99) Mean Corpuscular Hemoglobin 30.4 PG (27.0-31.0) 30.1 PG (27.0-31.0) 30.2 PG (27.0-31.0) Mean Corpuscular Hemoglobin Concent 34.0 G/DL (32.0-36.0) 33.1 G/DL (32.0-36.0) 33.6 G/DL (32.0-36.0) Red Cell Distribution Width 16.0 % (11.6-14.8) 16.3 % (11.6-14.8) 16.4 % (11.6-14.8) Platelet Count 504 K/UL (150-450) 530 K/UL (150-450) 591 K/UL (150-450) Mean Platelet Volume 6.3 FL (6.5-10.1) 5.7 FL (6.5-10.1) 6.0 FL (6.5-10.1) Neutrophils (%) (Auto) 46.7 % (45.0-75.0) 48.5 % (45.0-75.0) 55.9 % (45.0-75.0) Lymphocytes (%) (Auto) 41.1 % (20.0-45.0) 40.5 % (20.0-45.0) 34.5 % (20.0-45.0) Monocytes (%) (Auto) 8.5 % (1.0-10.0) 7.9 % (1.0-10.0) 6.8 % (1.0-10.0) Eosinophils (%) (Auto) 1.1 % (0.0-3.0) 1.6 % (0.0-3.0) 1.3 % (0.0-3.0) Basophils (%) (Auto) 2.6 % (0.0-2.0) 1.6 % (0.0-2.0) 1.5 % (0.0-2.0) Sodium Level 141 MMOL/L (136-145) 141 MMOL/L (136-145) 139 MMOL/L (136-145) Potassium Level 3.4 MMOL/L (3.5-5.1) 3.2 MMOL/L (3.5-5.1) 3.7 MMOL/L (3.5-5.1) Chloride Level 104 MMOL/L (98-107) 103 MMOL/L (98-107) 102 MMOL/L (98-107) Carbon Dioxide Level 31 MMOL/L (21-32) 30 MMOL/L (21-32) 25 MMOL/L (21-32) Anion Gap 6 mmol/L (5-15) 8 mmol/L (5-15) 12 mmol/L (5-15) Blood Urea Nitrogen 33 mg/dL (7-18) 36 mg/dL (7-18) 35 mg/dL (7-18) Creatinine 2.5 MG/DL (0.55-1.30) 2.9 MG/DL (0.55-1.30) 3.2 MG/DL (0.55-1.30) Estimat Glomerular Filtration Rate 18.6 mL/min (>60) 15.7 mL/min (>60) 13.9 mL/min (>60) Glucose Level 113 MG/DL (74-106) 76 MG/DL (74-106) 144 MG/DL (74-106) Calcium Level 8.8 MG/DL (8.5-10.1) 8.9 MG/DL (8.5-10.1) 8.4 MG/DL (8.5-10.1) Phosphorus Level 3.1 MG/DL (2.5-4.9) 3.5 MG/DL (2.5-4.9) 3.3 MG/DL (2.5-4.9) Magnesium Level 2.4 MG/DL (1.8-2.4) 2.3 MG/DL (1.8-2.4) 2.3 MG/DL (1.8-2.4) Total Bilirubin 0.4 MG/DL (0.2-1.0) 0.5 MG/DL (0.2-1.0) 0.3 MG/DL (0.2-1.0) Direct Bilirubin < 0.1 MG/DL (0.0-0.3) Aspartate Amino Transf (AST/SGOT) 32 U/L (15-37) 28 U/L (15-37) 24 U/L (15-37) Alanine Aminotransferase (ALT/SGPT) 11 U/L (12-78) < 6 U/L (12-78) 15 U/L (12-78) Alkaline Phosphatase 140 U/L (46-116) 113 U/L (46-116) 167 U/L (46-116) Total Protein 5.6 G/DL (6.4-8.2) 6.2 G/DL (6.4-8.2) 5.9 G/DL (6.4-8.2) Albumin 2.0 G/DL (3.4-5.0) 1.9 G/DL (3.4-5.0) 1.7 G/DL (3.4-5.0) C-Reactive Protein, Quantitative 6.3 mg/dL (0.00-0.90) 5.4 mg/dL (0.00-0.90) Pro-B-Type Natriuretic Peptide > 71332 pg/mL (0-125) > 69954 pg/mL (0-125) Globulin 4.3 g/dL 4.2 g/dL Albumin/Globulin Ratio 0.4 (1.0-2.7) 0.4 (1.0-2.7) Thyroid Stimulating Hormone (TSH) 8.357 uiU/mL (0.358-3.740) Free Thyroxine 1.23 NG/DL (0.76-1.46) Test 08/29/19 08:15 Prothrombin Time 10.7 SEC (9.30-11.50) Prothromb Time International Ratio 1.0 (0.9-1.1) Activated Partial Thromboplast Time 29 SEC (23-33) Objective: WDWN NAD intubated reduced breath sounds bilaterally overall worse without rhonchi or wheeze [id number] without MRG NABS nontender no HSM no CCE contractures feeding tube in place no distention poorly responsive nonfocal cachectic reviewed and edited Micro: Microbiology Date/Time Source Procedure Growth Status 08/27/19 01:00 Sputum Gram Stain - Final Complete 08/27/19 01:00 Sputum Culture - Final Hailee Albicans Complete Accucheck: 86 Malcolm Cruz MD Aug 29, 2019 17:54
[2019-08-29] MEDS: Dyna-Hex 2% Top Sol 2oz TOPIC SCH (19:41)
[2019-08-29] MEDS: Epoetin Alfa-EPBX(ESRD on dialysis)4000 units/ml vial SUBQ SCH (21:03)
--- NOTE | 2019-08-29 22:27 | General Progress Note ---
Assessment/Plan Status: stable, not improved, unchanged, deteriorating Assessment/Plan: Assessment - Severe ulcerative esophagitis on endoscopy - on BID PPI - Resp failure - thrombocytopenia --> resolved - Renal failure - aspiration risk --> s/p PEG - anemia - bradycardia - Poor prognosis Recommendations - Continue TF - reduce water flushes - elevate HOB - monitor H&H - Wean / extubate Subjective Allergies: Coded Allergies: VANCOMYCIN (Unverified Allergy, Unknown, 08/02/19) Subjective Above noted No events overnight tolerating TF Objective Last 24 Hour Vital Signs Date Time Temp Pulse Resp B/P (MAP) Pulse Ox O2 Delivery O2 Flow Rate FiO2 08/29/19 21:00 54 18 40 08/29/19 19:47 56 08/29/19 19:13 57 18 40 08/29/19 19:00 56 18 131/55 (80) 100 08/29/19 18:00 56 25 131/61 (84) 100 08/29/19 17:55 54 120/58 08/29/19 17:55 120/58 08/29/19 17:10 55 18 40 08/29/19 17:00 54 25 120/58 (78) 98 08/29/19 16:00 Mechanical Ventilator Mechanical Ventilator Mechanical Ventilator Mechanical Ventilator 08/29/19 16:00 40 08/29/19 16:00 54 08/29/19 16:00 97.0 63 19 131/64 (86) 93 08/29/19 15:29 70 19 40 08/29/19 15:00 86 25 131/74 (93) 87 08/29/19 14:00 59 19 143/60 (87) 100 08/29/19 13:00 62 27 140/59 (86) 100 08/29/19 12:32 147/77 08/29/19 12:00 40 08/29/19 12:00 Mechanical Ventilator Mechanical Ventilator Mechanical Ventilator Mechanical Ventilator 08/29/19 12:00 97.2 69 27 147/77 (100) 99 08/29/19 11:26 65 08/29/19 11:00 65 16 144/63 (90) 93 08/29/19 10:53 66 20 40 08/29/19 10:00 60 18 149/67 (94) 99 08/29/19 09:30 98 08/29/19 09:28 60 18 40 08/29/19 09:23 68 149/99 08/29/19 09:00 80 23 149/99 (116) 100 08/29/19 08:00 68 08/29/19 08:00 40 08/29/19 08:00 97.0 61 20 133/59 (83) 95 08/29/19 08:00 Mechanical Ventilator Mechanical Ventilator Mechanical Ventilator Mechanical Ventilator 08/29/19 07:16 78 21 40 08/29/19 07:00 81 31 170/81 (110) 99 08/29/19 07:00 81 31 170/81 (110) 99 08/29/19 06:39 167/87 08/29/19 06:30 70 20 08/29/19 06:00 71 20 167/87 (113) 94 08/29/19 06:00 70 20 167/87 (113) 100 08/29/19 05:15 64 18 40 08/29/19 05:00 65 23 170/112 (131) 100 08/29/19 05:00 98.0 65 23 170/112 (131) 100 08/29/19 04:22 66 24 167/108 (127) 100 08/29/19 04:00 40 08/29/19 04:00 66 24 167/108 (127) 100 08/29/19 04:00 Mechanical Ventilator Mechanical Ventilator Mechanical Ventilator Mechanical Ventilator 08/29/19 04:00 69 23 100 08/29/19 03:17 65 08/29/19 03:12 63 19 40 08/29/19 03:00 69 25 135/61 (85) 100 08/29/19 03:00 69 25 135/61 (85) 100 08/29/19 02:14 60 19 134/58 (83) 100 08/29/19 02:00 74 23 100 08/29/19 02:00 97.8 74 23 133/65 (87) 100 08/29/19 01:18 64 18 40 08/29/19 01:00 67 24 100 08/29/19 01:00 67 24 134/67 (89) 100 08/29/19 00:14 136/69 08/29/19 00:14 136/69 08/29/19 00:00 58 18 136/69 (91) 100 08/29/19 00:00 Mechanical Ventilator Mechanical Ventilator Mechanical Ventilator Mechanical Ventilator 08/29/19 00:00 58 18 136/69 (91) 100 08/28/19 23:29 69 18 40 08/28/19 23:11 63 08/28/19 23:00 97.4 58 18 132/55 (80) 100 Intake and Output 08/28/19 08/29/19 19:00 07:00 Intake Total 670 ml 400 ml Balance 670 ml 400 ml IV Total 100 ml Tube Feeding 420 ml 350 ml Other 150 ml 50 ml # Voids 1 # Bowel Movements 2 1 Laboratory Tests 08/29/19 03:30: Thyroid Stimulating Hormone (TSH) 8.357H, Free Thyroxine 1.23 08/29/19 03:50: White Blood Count 6.8#, Red Blood Count 3.14L, Hemoglobin 9.5L, Hematocrit 28.2L , Mean Corpuscular Volume 90, Mean Corpuscular Hemoglobin 30.2, Mean Corpuscular Hemoglobin Concent 33.6, Red Cell Distribution Width 16.4H, Platelet Count 591H, Mean Platelet Volume 6.0L, Neutrophils (%) (Auto) 55.9, Lymphocytes (%) (Auto) 34.5, Monocytes (%) (Auto) 6.8, Eosinophils (%) (Auto) 1.3, Basophils (%) (Auto) 1.5, Sodium Level 139, Potassium Level 3.7, Chloride Level 102, Carbon Dioxide Level 25, Anion Gap 12, Blood Urea Nitrogen 35H, Creatinine 3.2H, Estimat Glomerular Filtration Rate 13.9, Glucose Level 144H, Calcium Level 8.4L, Phosphorus Level 3.3, Magnesium Level 2.3, Total Bilirubin 0.3, Aspartate Amino Transf (AST/SGOT) 24, Alanine Aminotransferase (ALT/SGPT) 15, Alkaline Phosphatase 167H, C-Reactive Protein, Quantitative 5.4H, Pro-B- Type Natriuretic Peptide > 33002D, Total Protein 5.9L, Albumin 1.7L, Globulin 4.2, Albumin/Globulin Ratio 0.4L 08/29/19 08:15: Prothrombin Time 10.7, Prothromb Time International Ratio 1.0, Activated Partial Thromboplast Time 29 Height (Feet): 5 Height (Inches): 4.00 Weight (Pounds): 111 Objective Debilitated frail woman NCAT (+) ETT supple scattered ronchi RR abd soft ND NT, (+) GT no edema Cristy Elizondo MD Aug 29, 2019 22:27
[2019-08-30] VITALS (24 sets, daily range): BP systolic 77–163; BP diastolic 46–113
--- NOTE | 2019-08-30 04:00 | Progress Note ---
DATE: 08/29/2019 CARDIOLOGY PROGRESS NOTE SUBJECTIVE: Condition remains critical. Prognosis guarded. ICU care ongoing. Discussed with staff and consulting physicians. The patient is on ventilator support. Still with copious secretions. OBJECTIVE: VITAL SIGNS: Blood pressure 170/80, pulse 81, and respirations 31. LUNGS: Bilateral breath sounds. Rhonchi and rales. HEART: Regular rhythm and rate. Normal S1, S2. ABDOMEN: Soft. G-tube intact. EXTREMITIES: Trace edema. LABORATORY DATA: White count 6.8 and hemoglobin 9.5. Potassium 3.7, BUN 35, and creatinine 3.2. TSH 8.3. IMPRESSION: 1. Respiratory failure, status post sepsis with shock. 2. Labile hypertension with accelerated blood pressure. 3. Acute on chronic diastolic congestive heart failure. 4. End-stage renal disease. 5. Hypothyroidism. 6. Bradyarrhythmias now improved significantly. PLAN: 1. Ventilator support with wean. 2. Antimicrobials. 3. Volume management with ultrafiltration during hemodialysis. 4. Thyroid replacement. 5. Nutrition by feeding tube with protein supplements. 6. She will likely need trach. 7. Plan of care updated and orders reviewed. 8. Discussed with intensive care unit staff. Abel Stubbs M.D. DR: ALICIA JOB#: [id number] CC:
[2019-08-30] MEDS: HydrALAZINE 25mg tab NG SCH ×3 (06:00→18:00)
--- NOTE | 2019-08-30 06:03 | General Progress Note ---
Assessment/Plan Problem List: (1) Hypothyroid ICD Codes: E03.9 - Hypothyroidism, unspecified SNOMED: 23140490 (2) ESRD (end stage renal disease) on dialysis ICD Codes: N18.6 - End stage renal disease; Z99.2 - Dependence on renal dialysis SNOMED: 350575768 (3) Hypotension ICD Codes: I95.9 - Hypotension, unspecified SNOMED: 41707472 Qualifiers: Qualified Codes: I95.3 - Hypotension of hemodialysis (4) Pneumonia ICD Codes: J18.9 - Pneumonia, unspecified organism SNOMED: 435994810 Qualifiers: Qualified Codes: J18.9 - Pneumonia, unspecified organism (5) Diabetes mellitus ICD Codes: E11.9 - Type 2 diabetes mellitus without complications SNOMED: 13745476 Status: stable, not improved, unchanged, deteriorating Assessment/Plan: TSH is stable at 8 and free T4 is normal continue Levothyroxine IV 50 mcg daily repeat thyroid function in one week Subjective ROS Limited/Unobtainable: Yes Allergies: Coded Allergies: VANCOMYCIN (Unverified Allergy, Unknown, 08/02/19) Subjective events noted interval notes reviewed intubated in ICU on TF Objective Last 24 Hour Vital Signs Date Time Temp Pulse Resp B/P (MAP) Pulse Ox O2 Delivery O2 Flow Rate FiO2 08/30/19 05:13 61 18 40 08/30/19 05:00 64 26 157/68 (97) 100 08/30/19 04:00 97.5 64 20 153/71 (98) 100 08/30/19 04:00 Mechanical Ventilator Mechanical Ventilator Mechanical Ventilator Mechanical Ventilator 08/30/19 04:00 40 08/30/19 03:11 66 08/30/19 03:05 62 18 40 08/30/19 03:00 62 26 147/70 (95) 100 08/30/19 02:00 77 26 151/93 (112) 100 08/30/19 01:05 74 24 40 08/30/19 01:00 75 23 142/70 (94) 94 08/30/19 00:00 40 08/30/19 00:00 Mechanical Ventilator Mechanical Ventilator Mechanical Ventilator Mechanical Ventilator 08/30/19 00:00 97.4 71 27 156/70 (98) 99 08/29/19 23:53 154/72 08/29/19 23:51 70 31 154/72 (99) 100 08/29/19 23:18 79 24 166/80 (108) 99 08/29/19 23:15 81 29 40 08/29/19 23:02 69 08/29/19 23:00 85 23 164/102 (122) 89 08/29/19 22:00 53 18 130/56 (80) 100 08/29/19 21:00 56 19 120/55 (76) 100 08/29/19 21:00 54 18 40 08/29/19 20:00 40 08/29/19 20:00 97.4 56 19 139/57 (84) 100 08/29/19 20:00 Mechanical Ventilator Mechanical Ventilator Mechanical Ventilator Mechanical Ventilator 08/29/19 19:47 56 08/29/19 19:13 57 18 40 08/29/19 19:00 56 18 131/55 (80) 100 08/29/19 18:00 56 25 131/61 (84) 100 08/29/19 17:55 54 120/58 08/29/19 17:55 120/58 08/29/19 17:10 55 18 40 08/29/19 17:00 54 25 120/58 (78) 98 08/29/19 16:00 Mechanical Ventilator Mechanical Ventilator Mechanical Ventilator Mechanical Ventilator 08/29/19 16:00 40 08/29/19 16:00 54 08/29/19 16:00 97.0 63 19 131/64 (86) 93 08/29/19 15:29 70 19 40 08/29/19 15:00 86 25 131/74 (93) 87 08/29/19 14:00 59 19 143/60 (87) 100 08/29/19 13:00 62 27 140/59 (86) 100 08/29/19 12:32 147/77 08/29/19 12:00 40 08/29/19 12:00 Mechanical Ventilator Mechanical Ventilator Mechanical Ventilator Mechanical Ventilator 08/29/19 12:00 97.2 69 27 147/77 (100) 99 08/29/19 11:26 65 08/29/19 11:00 65 16 144/63 (90) 93 08/29/19 10:53 66 20 40 08/29/19 10:00 60 18 149/67 (94) 99 08/29/19 09:30 98 08/29/19 09:28 60 18 40 08/29/19 09:23 68 149/99 08/29/19 09:00 80 23 149/99 (116) 100 08/29/19 08:00 68 08/29/19 08:00 40 08/29/19 08:00 97.0 61 20 133/59 (83) 95 08/29/19 08:00 Mechanical Ventilator Mechanical Ventilator Mechanical Ventilator Mechanical Ventilator 08/29/19 07:16 78 21 40 08/29/19 07:00 81 31 170/81 (110) 99 08/29/19 07:00 81 31 170/81 (110) 99 08/29/19 06:39 167/87 08/29/19 06:30 70 20 Intake and Output 08/29/19 08/30/19 19:00 07:00 Intake Total 620 ml 450 ml Balance 620 ml 450 ml Intake Free Water 50 ml Tube Feeding 420 ml 350 ml Other 200 ml 50 ml # Voids 2 2 # Bowel Movements 4 4 Laboratory Tests 08/29/19 08:15: Prothrombin Time 10.7, Prothromb Time International Ratio 1.0, Activated Partial Thromboplast Time 29 Height (Feet): 5 Height (Inches): 4.00 Weight (Pounds): 111 General Appearance: other - intubated EENT: other - ETT Cardiovascular: normal rate Respiratory/Chest: decreased breath sounds Abdomen: normal bowel sounds Objective Current Medications Medications (Trade) Dose Ordered Sig/Javier Route PRN Reason Start Time Stop Time Status Last Admin Dose Admin Albuterol/ Ipratropium (Albuterol/ Ipratropium) 3 ml Q4H PRN HHN Shortness of Breath 08/25/19 09:30 08/30/19 09:29 Amlodipine Besylate (Norvasc) 5 mg BID NG 08/23/19 01:45 09/22/19 01:44 08/29/19 17:55 Atropine Sulfate (Atropine) 1 mg Q4H PRN IVP Per rx protocol 08/13/19 08:30 09/12/19 08:29 Chlorhexidine Gluconate (Nae-Hex 2%) 1 applic DAILY@2000 TOPIC 08/15/19 20:00 09/14/19 19:59 08/29/19 19:41 Dextrose (Dextrose 50%) 50 ml Q30M PRN IV Hypoglycemia 08/11/19 10:30 09/04/19 17:44 08/22/19 15:46 Diphenhydramine HCl (Benadryl) 50 mg Q4H PRN IVP Itching 08/09/19 14:30 09/08/19 14:29 08/13/19 02:39 Epoetin Thomas (Epoetin Thomas(ESRD on dialysis)) 4,000 unit SUBQ 08/12/19 21:00 09/11/19 20:59 08/29/19 21:03 Hydralazine HCl (Apresoline) 10 mg Q4H PRN IV For High Blood Pressure 08/18/19 12:44 09/17/19 12:43 08/22/19 09:22 Hydralazine HCl (Apresoline) 25 mg Q6HR NG 08/23/19 06:00 09/22/19 05:59 08/29/19 23:53 Lansoprazole (Prevacid) 30 mg BID GT 08/19/19 09:00 09/18/19 08:59 08/29/19 17:55 Levothyroxine Sodium (Synthroid) 50 mcg DAILY@0630 ORAL 08/25/19 06:30 09/24/19 06:29 08/29/19 06:39 Metoclopramide HCl (Reglan) 5 mg Q8H PRN IVP Nausea & Vomiting 08/09/19 12:39 09/08/19 12:38 Antonio Jacome MD Aug 30, 2019 06:03
--- NOTE | 2019-08-30 06:57 | Hematology/Onc Progress Note ---
Assessment/Plan Assessment/Plan # Thrombocytopenia - potential causes multifactorial, evaluate liver and viral etiologies to begin, in this case due to sepsis with septic shock also with cirrhosis and liver disease --> Hep panel and HIV ordered -> neg --> US abd to evaluate for cirrhosis and hsm ordered --> reviewed --> Peripheral smear ordered to evaluate for blasts /schistocytes --> abx and other meds have been reviewed --> ok for ppx if plt >50k w/ either heparin or lovenox --> Transfuse if Plt < 20k and fever, or if Plt < 10k without fever --> okay for permacath change once plt better--> for 08/14 --> plt trend: 43-->83-->237k-->292-->341-->315-->388 -->444-->530 # Anemia of chronic disease due to underlying chronic medical issues, multifactorial v Gi bleed --> Anemia workup has been ordered, rule out gi bleed --> No evidence of hemolysis is noted, peripheral smear has been reviewed. --> Hgb goal >7. Transfuse prn. --> Epogen has been started --> HOLD OFF IRON ferritin is >1000 --> Medications have been reviewed --> low threshold for gi evaluation in case has occult + --> hgb 9-->6.7-->9.2 -->10.5-->10.6 -->10.7-->10-->10.5-->9.8-->10.4-->9.5 --> blood tx: 08/11 # Early sepsis with shock. --> abx as per id, recs noted --> pressors as needed # Healthcare-associated pneumonia. --> recs reviewed --> abx: jung/micafungin-->jung --> 08/24 us chest: moderate left pleural effusion # Severe protein-calorie malnutrition. --> nutritional support # End-stage renal disease --> had as renal hd --> with permacath # History of hypertension. --> per cards, now with Bradycardia. # resp failure s/p vent/trach # HypoThyroid # Ngt feedings # Dvt ppx scd's The timing of this note does not necessarily reflect the time of the patient was seen. Greatly appreciate consultation. Subjective Constitutional: Denies: no symptoms, chills, fever, malaise, weakness, other Cardiovascular: Denies: no symptoms, chest pain, edema, irregular heart rate, lightheadedness, palpitations, syncope, other Respiratory: Denies: no symptoms, cough, shortness of breath, SOB with excertion, SOB at rest, sputum, wheezing, other Gastrointestinal/Abdominal: Denies: no symptoms, abdomen distended, abdominal pain, black stools, tarry stools, blood in stool, constipated, diarrhea, difficulty swallowing, nausea, poor appetite, poor fluid intake, rectal bleeding , vomiting, other Genitourinary: Denies: no symptoms, burning, discharge, frequency, flank pain, hematuria, incontinence, pain, urgency, other Neurologic/Psychiatric: Denies: no symptoms, anxiety, depressed, emotional problems, headache, numbness, paresthesia, pre-existing deficit, seizure, tingling, tremors, weakness, other Endocrine: Denies: no symptoms, excessive sweating, flushing, intolerance to cold, intolerance to heat, increased hunger, increased thirst, increased urine, unexplained weight gain, unexplained weight loss, other Allergies: Coded Allergies: VANCOMYCIN (Unverified Allergy, Unknown, 08/02/19) Subjective 08/11: no bleeding or chills, labs reviewed, no major bleeding, plt less than 50k 08/12: icu, s/p blood, hgb improved to 9.2, 08/14: icu, pending consent for thora and permacath, labs reviewed 08/15: new permacath placed, no bleeding, for hd, plt much improved, started lovenox sq 08/16: ett to be adjusted, bp on high end, micafungin started, possible bronch 08/17: weaning as per pulm, no events otherwise, labs noted 08/18: no events no bleeding, remains confused on vent, for hd 08/20: icu, failed to wean, labs reviewed, jung 08/21: resting in bed, no overnight events, labs reviewed 08/22: awake, confused, restraints, no overnight events 08/23: no events, no bleeding, on ppi bid 08/24: icu, failed to wean, labs reviewed 08/25: no overnight events, us chest, restraints, afebrile 08/26 difficult in weaning, nad, seen by surg, pulm labs noted 08/27 awake on restraints, thoracentesis for am, labs reviewed 08/29 no bleeding, no night sweats, no major changes, on ppi bid Objective Objective Current Medications Medications (Trade) Dose Ordered Sig/Javier Route PRN Reason Start Time Stop Time Status Last Admin Dose Admin Albuterol/ Ipratropium (Albuterol/ Ipratropium) 3 ml Q4H PRN HHN Shortness of Breath 08/25/19 09:30 08/30/19 09:29 Amlodipine Besylate (Norvasc) 5 mg BID NG 08/23/19 01:45 09/22/19 01:44 08/29/19 17:55 Atropine Sulfate (Atropine) 1 mg Q4H PRN IVP Per rx protocol 08/13/19 08:30 09/12/19 08:29 Chlorhexidine Gluconate (Nae-Hex 2%) 1 applic DAILY@2000 TOPIC 08/15/19 20:00 09/14/19 19:59 08/29/19 19:41 Dextrose (Dextrose 50%) 50 ml Q30M PRN IV Hypoglycemia 08/11/19 10:30 09/04/19 17:44 08/22/19 15:46 Diphenhydramine HCl (Benadryl) 50 mg Q4H PRN IVP Itching 08/09/19 14:30 09/08/19 14:29 08/13/19 02:39 Epoetin Thomas (Epoetin Thomas(ESRD on dialysis)) 4,000 unit THU-THU-THU SUBQ 08/12/19 21:00 09/11/19 20:59 08/29/19 21:03 Hydralazine HCl (Apresoline) 10 mg Q4H PRN IV For High Blood Pressure 08/18/19 12:44 09/17/19 12:43 08/22/19 09:22 Hydralazine HCl (Apresoline) 25 mg Q6HR NG 08/23/19 06:00 09/22/19 05:59 08/29/19 23:53 Lansoprazole (Prevacid) 30 mg BID GT 08/19/19 09:00 09/18/19 08:59 08/29/19 17:55 Levothyroxine Sodium (Synthroid) 50 mcg DAILY@0630 ORAL 08/25/19 06:30 09/24/19 06:29 08/29/19 06:39 Metoclopramide HCl (Reglan) 5 mg Q8H PRN IVP Nausea & Vomiting 08/09/19 12:39 09/08/19 12:38 Last 24 Hour Vital Signs Date Time Temp Pulse Resp B/P (MAP) Pulse Ox O2 Delivery O2 Flow Rate FiO2 08/30/19 06:30 68 28 08/30/19 06:00 153/71 08/30/19 06:00 67 26 153/71 (98) 100 08/30/19 05:13 61 18 40 08/30/19 05:00 64 26 157/68 (97) 100 08/30/19 04:00 97.5 64 20 153/71 (98) 100 08/30/19 04:00 Mechanical Ventilator Mechanical Ventilator Mechanical Ventilator Mechanical Ventilator 08/30/19 04:00 40 08/30/19 03:11 66 08/30/19 03:05 62 18 40 08/30/19 03:00 62 26 147/70 (95) 100 08/30/19 02:00 77 26 151/93 (112) 100 08/30/19 01:05 74 24 40 08/30/19 01:00 75 23 142/70 (94) 94 08/30/19 00:00 40 08/30/19 00:00 Mechanical Ventilator Mechanical Ventilator Mechanical Ventilator Mechanical Ventilator 08/30/19 00:00 97.4 71 27 156/70 (98) 99 08/29/19 23:53 154/72 08/29/19 23:51 70 31 154/72 (99) 100 08/29/19 23:18 79 24 166/80 (108) 99 08/29/19 23:15 81 29 40 08/29/19 23:02 69 08/29/19 23:00 85 23 164/102 (122) 89 08/29/19 22:00 53 18 130/56 (80) 100 08/29/19 21:00 56 19 120/55 (76) 100 08/29/19 21:00 54 18 40 08/29/19 20:00 40 08/29/19 20:00 97.4 56 19 139/57 (84) 100 08/29/19 20:00 Mechanical Ventilator Mechanical Ventilator Mechanical Ventilator Mechanical Ventilator 08/29/19 19:47 56 08/29/19 19:13 57 18 40 08/29/19 19:00 56 18 131/55 (80) 100 08/29/19 18:00 56 25 131/61 (84) 100 08/29/19 17:55 54 120/58 08/29/19 17:55 120/58 08/29/19 17:10 55 18 40 08/29/19 17:00 54 25 120/58 (78) 98 08/29/19 16:00 Mechanical Ventilator Mechanical Ventilator Mechanical Ventilator Mechanical Ventilator 08/29/19 16:00 40 08/29/19 16:00 54 08/29/19 16:00 97.0 63 19 131/64 (86) 93 08/29/19 15:29 70 19 40 08/29/19 15:00 86 25 131/74 (93) 87 08/29/19 14:00 59 19 143/60 (87) 100 08/29/19 13:00 62 27 140/59 (86) 100 08/29/19 12:32 147/77 08/29/19 12:00 40 08/29/19 12:00 Mechanical Ventilator Mechanical Ventilator Mechanical Ventilator Mechanical Ventilator 08/29/19 12:00 97.2 69 27 147/77 (100) 99 08/29/19 11:26 65 08/29/19 11:00 65 16 144/63 (90) 93 08/29/19 10:53 66 20 40 08/29/19 10:00 60 18 149/67 (94) 99 08/29/19 09:30 98 08/29/19 09:28 60 18 40 08/29/19 09:23 68 149/99 08/29/19 09:00 80 23 149/99 (116) 100 08/29/19 08:00 68 08/29/19 08:00 40 08/29/19 08:00 97.0 61 20 133/59 (83) 95 08/29/19 08:00 Mechanical Ventilator Mechanical Ventilator Mechanical Ventilator Mechanical Ventilator 08/29/19 07:16 78 21 40 08/29/19 07:00 81 31 170/81 (110) 99 08/29/19 07:00 81 31 170/81 (110) 99 08/29/19 06:39 167/87 08/29/19 06:30 70 20 08/29/19 06:00 71 20 167/87 (113) 94 08/29/19 06:00 70 20 167/87 (113) 100 08/29/19 05:15 64 18 40 08/29/19 05:00 65 23 170/112 (131) 100 08/29/19 05:00 98.0 65 23 170/112 (131) 100 08/29/19 04:22 66 24 167/108 (127) 100 08/29/19 04:00 40 08/29/19 04:00 66 24 167/108 (127) 100 08/29/19 04:00 Mechanical Ventilator Mechanical Ventilator Mechanical Ventilator Mechanical Ventilator 08/29/19 04:00 69 23 100 08/29/19 03:17 65 08/29/19 03:12 63 19 40 08/29/19 03:00 69 25 135/61 (85) 100 08/29/19 03:00 69 25 135/61 (85) 100 08/29/19 02:14 60 19 134/58 (83) 100 08/29/19 02:00 74 23 100 08/29/19 02:00 97.8 74 23 133/65 (87) 100 08/29/19 01:18 64 18 40 08/29/19 01:00 67 24 100 08/29/19 01:00 67 24 134/67 (89) 100 08/29/19 00:14 136/69 08/29/19 00:14 136/69 08/29/19 00:00 58 18 136/69 (91) 100 08/29/19 00:00 Mechanical Ventilator Mechanical Ventilator Mechanical Ventilator Mechanical Ventilator 08/29/19 00:00 58 18 136/69 (91) 100 08/28/19 23:29 69 18 40 08/28/19 23:11 63 08/28/19 23:00 97.4 58 18 132/55 (80) 100 08/28/19 22:00 65 25 131/75 (93) 100 08/28/19 21:29 67 18 40 08/28/19 21:00 57 18 137/58 (84) 100 08/28/19 20:00 40 08/28/19 20:00 98.0 64 24 138/66 (90) 100 08/28/19 20:00 Mechanical Ventilator Mechanical Ventilator Mechanical Ventilator Mechanical Ventilator 08/28/19 19:28 57 18 40 08/28/19 19:19 64 08/28/19 19:00 62 23 142/66 (91) 100 08/28/19 18:00 66 20 145/65 (91) 100 08/28/19 17:46 76 150/73 08/28/19 17:46 150/73 08/28/19 17:45 150/73 08/28/19 17:08 73 20 40 08/28/19 17:00 75 20 129/101 (110) 99 08/28/19 16:05 67 08/28/19 16:00 97.9 65 22 150/73 (98) 100 08/28/19 16:00 Mechanical Ventilator Mechanical Ventilator Mechanical Ventilator Mechanical Ventilator 08/28/19 16:00 40 08/28/19 15:23 63 19 40 08/28/19 15:00 70 19 133/67 (89) 100 08/28/19 14:00 77 24 143/70 (94) 99 08/28/19 13:20 68 20 40 08/28/19 13:00 73 19 141/69 (93) 100 08/28/19 12:15 67 08/28/19 12:00 97.9 72 20 149/78 (101) 98 08/28/19 12:00 Mechanical Ventilator Mechanical Ventilator Mechanical Ventilator Mechanical Ventilator 08/28/19 12:00 40 08/28/19 11:48 131/64 08/28/19 11:48 131/64 08/28/19 11:28 59 18 40 08/28/19 11:00 58 19 131/64 (86) 100 08/28/19 10:00 65 26 138/71 (93) 100 08/28/19 09:26 57 18 40 08/28/19 09:00 63 27 134/66 (88) 100 08/28/19 08:21 75 135/67 08/28/19 08:00 40 08/28/19 08:00 Mechanical Ventilator Mechanical Ventilator Mechanical Ventilator Mechanical Ventilator 08/28/19 08:00 97.6 59 18 135/67 (89) 100 08/28/19 07:42 68 08/28/19 07:16 98 08/28/19 07:12 67 18 40 08/28/19 07:00 64 21 138/69 (92) 100 Intake and Output 08/29/19 08/30/19 19:00 07:00 Intake Total 620 ml 415 ml Balance 620 ml 415 ml Intake Free Water 50 ml Tube Feeding 420 ml 315 ml Other 200 ml 50 ml # Voids 2 2 # Bowel Movements 4 4 Labs Test 08/27/19 08:00 08/28/19 05:10 08/29/19 03:30 08/29/19 03:50 White Blood Count 4.9 K/UL (4.8-10.8) 4.4 K/UL (4.8-10.8) 6.8 K/UL (4.8-10.8) Red Blood Count 3.21 M/UL (4.20-5.40) 3.44 M/UL (4.20-5.40) 3.14 M/UL (4.20-5.40) Hemoglobin 9.8 G/DL (12.0-16.0) 10.4 G/DL (12.0-16.0) 9.5 G/DL (12.0-16.0) Hematocrit 28.7 % (37.0-47.0) 31.3 % (37.0-47.0) 28.2 % (37.0-47.0) Mean Corpuscular Volume 89 FL (80-99) 91 FL (80-99) 90 FL (80-99) Mean Corpuscular Hemoglobin 30.4 PG (27.0-31.0) 30.1 PG (27.0-31.0) 30.2 PG (27.0-31.0) Mean Corpuscular Hemoglobin Concent 34.0 G/DL (32.0-36.0) 33.1 G/DL (32.0-36.0) 33.6 G/DL (32.0-36.0) Red Cell Distribution Width 16.0 % (11.6-14.8) 16.3 % (11.6-14.8) 16.4 % (11.6-14.8) Platelet Count 504 K/UL (150-450) 530 K/UL (150-450) 591 K/UL (150-450) Mean Platelet Volume 6.3 FL (6.5-10.1) 5.7 FL (6.5-10.1) 6.0 FL (6.5-10.1) Neutrophils (%) (Auto) 46.7 % (45.0-75.0) 48.5 % (45.0-75.0) 55.9 % (45.0-75.0) Lymphocytes (%) (Auto) 41.1 % (20.0-45.0) 40.5 % (20.0-45.0) 34.5 % (20.0-45.0) Monocytes (%) (Auto) 8.5 % (1.0-10.0) 7.9 % (1.0-10.0) 6.8 % (1.0-10.0) Eosinophils (%) (Auto) 1.1 % (0.0-3.0) 1.6 % (0.0-3.0) 1.3 % (0.0-3.0) Basophils (%) (Auto) 2.6 % (0.0-2.0) 1.6 % (0.0-2.0) 1.5 % (0.0-2.0) Sodium Level 141 MMOL/L (136-145) 141 MMOL/L (136-145) 139 MMOL/L (136-145) Potassium Level 3.4 MMOL/L (3.5-5.1) 3.2 MMOL/L (3.5-5.1) 3.7 MMOL/L (3.5-5.1) Chloride Level 104 MMOL/L (98-107) 103 MMOL/L (98-107) 102 MMOL/L (98-107) Carbon Dioxide Level 31 MMOL/L (21-32) 30 MMOL/L (21-32) 25 MMOL/L (21-32) Anion Gap 6 mmol/L (5-15) 8 mmol/L (5-15) 12 mmol/L (5-15) Blood Urea Nitrogen 33 mg/dL (7-18) 36 mg/dL (7-18) 35 mg/dL (7-18) Creatinine 2.5 MG/DL (0.55-1.30) 2.9 MG/DL (0.55-1.30) 3.2 MG/DL (0.55-1.30) Estimat Glomerular Filtration Rate 18.6 mL/min (>60) 15.7 mL/min (>60) 13.9 mL/min (>60) Glucose Level 113 MG/DL (74-106) 76 MG/DL (74-106) 144 MG/DL (74-106) Calcium Level 8.8 MG/DL (8.5-10.1) 8.9 MG/DL (8.5-10.1) 8.4 MG/DL (8.5-10.1) Phosphorus Level 3.1 MG/DL (2.5-4.9) 3.5 MG/DL (2.5-4.9) 3.3 MG/DL (2.5-4.9) Magnesium Level 2.4 MG/DL (1.8-2.4) 2.3 MG/DL (1.8-2.4) 2.3 MG/DL (1.8-2.4) Total Bilirubin 0.4 MG/DL (0.2-1.0) 0.5 MG/DL (0.2-1.0) 0.3 MG/DL (0.2-1.0) Direct Bilirubin < 0.1 MG/DL (0.0-0.3) Aspartate Amino Transf (AST/SGOT) 32 U/L (15-37) 28 U/L (15-37) 24 U/L (15-37) Alanine Aminotransferase (ALT/SGPT) 11 U/L (12-78) < 6 U/L (12-78) 15 U/L (12-78) Alkaline Phosphatase 140 U/L (46-116) 113 U/L (46-116) 167 U/L (46-116) Total Protein 5.6 G/DL (6.4-8.2) 6.2 G/DL (6.4-8.2) 5.9 G/DL (6.4-8.2) Albumin 2.0 G/DL (3.4-5.0) 1.9 G/DL (3.4-5.0) 1.7 G/DL (3.4-5.0) C-Reactive Protein, Quantitative 6.3 mg/dL (0.00-0.90) 5.4 mg/dL (0.00-0.90) Pro-B-Type Natriuretic Peptide > 84748 pg/mL (0-125) > 58083 pg/mL (0-125) Globulin 4.3 g/dL 4.2 g/dL Albumin/Globulin Ratio 0.4 (1.0-2.7) 0.4 (1.0-2.7) Thyroid Stimulating Hormone (TSH) 8.357 uiU/mL (0.358-3.740) Free Thyroxine 1.23 NG/DL (0.76-1.46) Test 08/29/19 08:15 Prothrombin Time 10.7 SEC (9.30-11.50) Prothromb Time International Ratio 1.0 (0.9-1.1) Activated Partial Thromboplast Time 29 SEC (23-33) Height (Feet): 5 Height (Inches): 4.00 Weight (Pounds): 111 Objective gen: nad pulm: on trach+ / vent cv: rrr, no gmr abd: sfot, nt, nd ++ gt ext: no cce Gio Rob MD Aug 30, 2019 06:57
--- NOTE | 2019-08-30 10:53 | Infectious Diseases Prog Note ---
Assessment/Plan Assessment/Plan antibiotics : none A 1. jarad albicans fungemia s/p rx 2. right shoulder septic arthritis with staph aureus s/p rx 3. renal failure 4. thrombocytopenia resolved 7. diabetes mellitus 8. hypertension 9. respiratory failure P 1. observe off antibiotics Subjective ROS Limited/Unobtainable: Yes Allergies: Coded Allergies: VANCOMYCIN (Unverified Allergy, Unknown, 08/02/19) Objective Vital Signs Last 24 Hour Vital Signs Date Time Temp Pulse Resp B/P (MAP) Pulse Ox O2 Delivery O2 Flow Rate FiO2 08/30/19 10:00 66 22 146/72 (96) 99 66 08/30/19 09:24 57 18 40 08/30/19 09:00 72 27 147/69 (95) 100 72 08/30/19 08:00 40 08/30/19 08:00 Mechanical Ventilator Mechanical Ventilator Mechanical Ventilator Mechanical Ventilator 08/30/19 08:00 89 08/30/19 08:00 98.7 80 20 163/94 (117) 97 80 08/30/19 07:00 76 29 156/83 (107) 100 08/30/19 06:58 70 22 40 08/30/19 06:30 68 28 08/30/19 06:00 153/71 08/30/19 06:00 67 26 153/71 (98) 100 08/30/19 05:13 61 18 40 08/30/19 05:00 64 26 157/68 (97) 100 08/30/19 04:00 97.5 64 20 153/71 (98) 100 08/30/19 04:00 Mechanical Ventilator Mechanical Ventilator Mechanical Ventilator Mechanical Ventilator 08/30/19 04:00 40 08/30/19 03:11 66 08/30/19 03:05 62 18 40 08/30/19 03:00 62 26 147/70 (95) 100 08/30/19 02:00 77 26 151/93 (112) 100 08/30/19 01:05 74 24 40 08/30/19 01:00 75 23 142/70 (94) 94 08/30/19 00:00 40 08/30/19 00:00 Mechanical Ventilator Mechanical Ventilator Mechanical Ventilator Mechanical Ventilator 08/30/19 00:00 97.4 71 27 156/70 (98) 99 08/29/19 23:53 154/72 3/16/20 23:51 70 31 154/72 (99) 100 08/29/19 23:18 79 24 166/80 (108) 99 08/29/19 23:15 81 29 40 08/29/19 23:02 69 08/29/19 23:00 85 23 164/102 (122) 89 08/29/19 22:00 53 18 130/56 (80) 100 08/29/19 21:00 56 19 120/55 (76) 100 08/29/19 21:00 54 18 40 08/29/19 20:00 40 08/29/19 20:00 97.4 56 19 139/57 (84) 100 08/29/19 20:00 Mechanical Ventilator Mechanical Ventilator Mechanical Ventilator Mechanical Ventilator 08/29/19 19:47 56 08/29/19 19:13 57 18 40 08/29/19 19:00 56 18 131/55 (80) 100 08/29/19 18:00 56 25 131/61 (84) 100 08/29/19 17:55 54 120/58 08/29/19 17:55 120/58 08/29/19 17:10 55 18 40 08/29/19 17:00 54 25 120/58 (78) 98 08/29/19 16:00 Mechanical Ventilator Mechanical Ventilator Mechanical Ventilator Mechanical Ventilator 08/29/19 16:00 40 08/29/19 16:00 54 08/29/19 16:00 97.0 63 19 131/64 (86) 93 08/29/19 15:29 70 19 40 08/29/19 15:00 86 25 131/74 (93) 87 08/29/19 14:00 59 19 143/60 (87) 100 08/29/19 13:00 62 27 140/59 (86) 100 08/29/19 12:32 147/77 08/29/19 12:00 40 08/29/19 12:00 Mechanical Ventilator Mechanical Ventilator Mechanical Ventilator Mechanical Ventilator 08/29/19 12:00 97.2 69 27 147/77 (100) 99 08/29/19 11:26 65 08/29/19 11:00 65 16 144/63 (90) 93 08/29/19 10:53 66 20 40 Height (Feet): 5 Height (Inches): 4.00 Weight (Pounds): 116 HEENT: other - intubated Respiratory/Chest: lungs clear Cardiovascular: normal rate, regular rhythm, no gallop/murmur Abdomen: soft, non tender Extremities: no edema Current Medications Medications (Trade) Dose Ordered Sig/Javier Route PRN Reason Start Time Stop Time Status Last Admin Dose Admin Amlodipine Besylate (Norvasc) 5 mg BID NG 08/23/19 01:45 09/22/19 01:44 08/29/19 17:55 Atropine Sulfate (Atropine) 1 mg Q4H PRN IVP Per rx protocol 08/13/19 08:30 09/12/19 08:29 Chlorhexidine Gluconate (Nae-Hex 2%) 1 applic DAILY@1999 TOPIC 08/15/19 20:00 09/14/19 19:59 08/29/19 19:41 Dextrose (Dextrose 50%) 50 ml Q30M PRN IV Hypoglycemia 08/11/19 10:30 09/04/19 17:44 08/22/19 15:46 Diphenhydramine HCl (Benadryl) 50 mg Q4H PRN IVP Itching 08/09/19 14:30 09/08/19 14:29 08/13/19 02:39 Epoetin Thomas (Epoetin Thomas(ESRD on dialysis)) 4,000 unit [id number]-THU-[id number] SUBQ 08/12/19 21:00 09/11/19 20:59 08/29/19 21:03 Hydralazine HCl (Apresoline) 10 mg Q4H PRN IV For High Blood Pressure 08/18/19 12:44 09/17/19 12:43 08/22/19 09:22 Hydralazine HCl (Apresoline) 25 mg Q6HR NG 08/23/19 06:00 09/22/19 05:59 08/29/19 23:53 Lansoprazole (Prevacid) 30 mg BID GT 08/19/19 09:00 09/18/19 08:59 08/29/19 17:55 Levothyroxine Sodium (Synthroid) 50 mcg DAILY@0630 ORAL 08/25/19 06:30 09/24/19 06:29 08/29/19 06:39 Metoclopramide HCl (Reglan) 5 mg Q8H PRN IVP Nausea & Vomiting 08/09/19 12:39 3/26/20 12:38 Melissa Solares MD Aug 30, 2019 10:53
--- NOTE | 2019-08-30 12:30 | Nephrology Progress Note ---
Assessment/Plan Problem List: (1) ESRD (end stage renal disease) on dialysis (2) Malnutrition (3) Anemia in CKD (chronic kidney disease) (4) Hypotension (5) Thrombocytopenia (6) Sepsis Assessment: klebsiella in blood Assessment -Early sepsis with shock. -Healthcare-associated pneumonia. -Severe protein-calorie malnutrition. -Thrombocytopenia. - End-stage renal disease. - History of hypertension. - Bradycardia. - HypoThyroid Plan No labs for today Waiting for family's decision regarding the change of CODE STATUS Last dialysis August 25-Next dialysis August 29 K supplement as needed Due to her overall medical condition I favor DNR and comfort care Blood pressure fluctuating, will start hydralazine via NG tube for blood pressure Magnesium and potassium supplement intravenously as needed Patient underwent PEG placement August 16 patient remains intubated on ventilator Discussed with RN Aim to wean from ventilator or consider tracheostomy Permacath was removed on August 12 Dialysis 08/11 Transfusion as needed Patient had hematemesis meds IV as possible Surveillance blood cultures tomorrow Plan to put the permacath back in on Thursday if cultures are negative keep BP and BS in check Inflammatory markers per orders Subjective ROS Limited/Unobtainable: Yes Objective Objective Last 24 Hour Vital Signs Date Time Temp Pulse Resp B/P (MAP) Pulse Ox O2 Delivery O2 Flow Rate FiO2 08/30/19 12:00 Mechanical Ventilator Mechanical Ventilator Mechanical Ventilator Mechanical Ventilator 08/30/19 12:00 74 25 130/69 (89) 93 74 08/30/19 12:00 40 08/30/19 11:03 99 08/30/19 11:00 116 30 159/97 (117) 100 116 08/30/19 10:59 117 30 40 08/30/19 10:00 66 22 146/72 (96) 99 66 08/30/19 09:30 78 25 40 08/30/19 09:24 57 18 40 08/30/19 09:00 72 27 147/69 (95) 100 72 08/30/19 08:00 40 08/30/19 08:00 Mechanical Ventilator Mechanical Ventilator Mechanical Ventilator Mechanical Ventilator 08/30/19 08:00 89 08/30/19 08:00 98.7 80 20 163/94 (117) 97 80 08/30/19 07:00 76 29 156/83 (107) 100 08/30/19 06:58 70 22 40 08/30/19 06:30 68 28 08/30/19 06:00 153/71 08/30/19 06:00 67 26 153/71 (98) 100 08/30/19 05:13 61 18 40 08/30/19 05:00 64 26 157/68 (97) 100 08/30/19 04:00 97.5 64 20 153/71 (98) 100 08/30/19 04:00 Mechanical Ventilator Mechanical Ventilator Mechanical Ventilator Mechanical Ventilator 08/30/19 04:00 40 08/30/19 03:11 66 08/30/19 03:05 62 18 40 08/30/19 03:00 62 26 147/70 (95) 100 08/30/19 02:00 77 26 151/93 (112) 100 08/30/19 01:05 74 24 40 08/30/19 01:00 75 23 142/70 (94) 94 08/30/19 00:00 40 08/30/19 00:00 Mechanical Ventilator Mechanical Ventilator Mechanical Ventilator Mechanical Ventilator 08/30/19 00:00 97.4 71 27 156/70 (98) 99 08/29/19 23:53 154/72 08/29/19 23:51 70 31 154/72 (99) 100 08/29/19 23:18 79 24 166/80 (108) 99 08/29/19 23:15 81 29 40 08/29/19 23:02 69 08/29/19 23:00 85 23 164/102 (122) 89 08/29/19 22:00 53 18 130/56 (80) 100 08/29/19 21:00 56 19 120/55 (76) 100 08/29/19 21:00 54 18 40 08/29/19 20:00 40 08/29/19 20:00 97.4 56 19 139/57 (84) 100 08/29/19 20:00 Mechanical Ventilator Mechanical Ventilator Mechanical Ventilator Mechanical Ventilator 08/29/19 19:47 56 08/29/19 19:13 57 18 40 08/29/19 19:00 56 18 131/55 (80) 100 08/29/19 18:00 56 25 131/61 (84) 100 08/29/19 17:55 54 120/58 08/29/19 17:55 120/58 08/29/19 17:10 55 18 40 3/16/20 17:00 54 25 120/58 (78) 98 08/29/19 16:00 Mechanical Ventilator Mechanical Ventilator Mechanical Ventilator Mechanical Ventilator 08/29/19 16:00 40 08/29/19 16:00 54 08/29/19 16:00 97.0 63 19 131/64 (86) 93 08/29/19 15:29 70 19 40 08/29/19 15:00 86 25 131/74 (93) 87 08/29/19 14:00 59 19 143/60 (87) 100 08/29/19 13:00 62 27 140/59 (86) 100 08/29/19 12:32 147/77 Intake and Output 08/29/19 08/30/19 19:00 07:00 Intake Total 620 ml 415 ml Balance 620 ml 415 ml Intake Free Water 50 ml Tube Feeding 420 ml 315 ml Other 200 ml 50 ml # Voids 2 2 # Bowel Movements 4 4 Current Medications Medications (Trade) Dose Ordered Sig/Javier Route PRN Reason Start Time Stop Time Status Last Admin Dose Admin Amlodipine Besylate (Norvasc) 5 mg BID NG 08/23/19 01:45 09/22/19 01:44 08/29/19 17:55 Atropine Sulfate (Atropine) 1 mg Q4H PRN IVP Per rx protocol 08/13/19 08:30 09/12/19 08:29 Chlorhexidine Gluconate (Nae-Hex 2%) 1 applic DAILY@2000 TOPIC 08/15/19 20:00 09/14/19 19:59 08/29/19 19:41 Dextrose (Dextrose 50%) 50 ml Q30M PRN IV Hypoglycemia 08/11/19 10:30 09/04/19 17:44 08/22/19 15:46 Diphenhydramine HCl (Benadryl) 50 mg Q4H PRN IVP Itching 08/09/19 14:30 09/08/19 14:29 08/13/19 02:39 Epoetin Thomas (Epoetin Thomas(ESRD on dialysis)) 4,000 unit THU-THU-THU SUBQ 08/12/19 21:00 09/11/19 20:59 08/29/19 21:03 Hydralazine HCl (Apresoline) 10 mg Q4H PRN IV For High Blood Pressure 08/18/19 12:44 09/17/19 12:43 08/22/19 09:22 Hydralazine HCl (Apresoline) 25 mg Q6HR NG 08/23/19 06:00 09/22/19 05:59 08/29/19 23:53 Lansoprazole (Prevacid) 30 mg BID GT 08/19/19 09:00 09/18/19 08:59 08/29/19 17:55 Levothyroxine Sodium (Synthroid) 50 mcg DAILY@0630 ORAL 08/25/19 06:30 09/24/19 06:29 08/29/19 06:39 Metoclopramide HCl (Reglan) 5 mg Q8H PRN IVP Nausea & Vomiting 08/09/19 12:39 09/08/19 12:38 Height (Feet): 5 Height (Inches): 4.00 Weight (Pounds): 116 General Appearance: no apparent distress EENT: other - Bia intubated Cardiovascular: normal rate Respiratory/Chest: decreased breath sounds Abdomen: distended Objective no change William Blackwood MD Aug 30, 2019 12:30
--- NOTE | 2019-08-30 12:33 | Surgery Progress Note ---
Surgery Progress Note Subjective Procedure Performed Right Femoral Temporary Hemodialysis catheter Insertion Additional Comments receiving HD today catheter working well site okay labs reviewed unable to wean from vent does not tolerate cpap trials Objective Last 24 Hour Vital Signs Date Time Temp Pulse Resp B/P (MAP) Pulse Ox O2 Delivery O2 Flow Rate FiO2 08/30/19 12:00 Mechanical Ventilator Mechanical Ventilator Mechanical Ventilator Mechanical Ventilator 08/30/19 12:00 74 25 130/69 (89) 93 74 08/30/19 12:00 40 08/30/19 11:03 99 08/30/19 11:00 116 30 159/97 (117) 100 116 08/30/19 10:59 117 30 40 08/30/19 10:00 66 22 146/72 (96) 99 66 08/30/19 09:30 78 25 40 08/30/19 09:24 57 18 40 08/30/19 09:00 72 27 147/69 (95) 100 72 08/30/19 08:00 40 08/30/19 08:00 Mechanical Ventilator Mechanical Ventilator Mechanical Ventilator Mechanical Ventilator 08/30/19 08:00 89 08/30/19 08:00 98.7 80 20 163/94 (117) 97 80 08/30/19 07:00 76 29 156/83 (107) 100 08/30/19 06:58 70 22 40 08/30/19 06:30 68 28 08/30/19 06:00 153/71 08/30/19 06:00 67 26 153/71 (98) 100 08/30/19 05:13 61 18 40 08/30/19 05:00 64 26 157/68 (97) 100 08/30/19 04:00 97.5 64 20 153/71 (98) 100 08/30/19 04:00 Mechanical Ventilator Mechanical Ventilator Mechanical Ventilator Mechanical Ventilator 08/30/19 04:00 40 08/30/19 03:11 66 08/30/19 03:05 62 18 40 08/30/19 03:00 62 26 147/70 (95) 100 08/30/19 02:00 77 26 151/93 (112) 100 08/30/19 01:05 74 24 40 08/30/19 01:00 75 23 142/70 (94) 94 08/30/19 00:00 40 08/30/19 00:00 Mechanical Ventilator Mechanical Ventilator Mechanical Ventilator Mechanical Ventilator 08/30/19 00:00 97.4 71 27 156/70 (98) 99 08/29/19 23:53 154/72 08/29/19 23:51 70 31 154/72 (99) 100 08/29/19 23:18 79 24 166/80 (108) 99 08/29/19 23:15 81 29 40 08/29/19 23:02 69 08/29/19 23:00 85 23 164/102 (122) 89 08/29/19 22:00 53 18 130/56 (80) 100 08/29/19 21:00 56 19 120/55 (76) 100 08/29/19 21:00 54 18 40 08/29/19 20:00 40 08/29/19 20:00 97.4 56 19 139/57 (84) 100 08/29/19 20:00 Mechanical Ventilator Mechanical Ventilator Mechanical Ventilator Mechanical Ventilator 08/29/19 19:47 56 08/29/19 19:13 57 18 40 08/29/19 19:00 56 18 131/55 (80) 100 08/29/19 18:00 56 25 131/61 (84) 100 08/29/19 17:55 54 120/58 08/29/19 17:55 120/58 08/29/19 17:10 55 18 40 08/29/19 17:00 54 25 120/58 (78) 98 08/29/19 16:00 Mechanical Ventilator Mechanical Ventilator Mechanical Ventilator Mechanical Ventilator 08/29/19 16:00 40 08/29/19 16:00 54 08/29/19 16:00 97.0 63 19 131/64 (86) 93 08/29/19 15:29 70 19 40 08/29/19 15:00 86 25 131/74 (93) 87 08/29/19 14:00 59 19 143/60 (87) 100 08/29/19 13:00 62 27 140/59 (86) 100 08/29/19 12:32 147/77 I&O Intake and Output 08/29/19 08/30/19 19:00 07:00 Intake Total 620 ml 415 ml Balance 620 ml 415 ml Intake Free Water 50 ml Tube Feeding 420 ml 315 ml Other 200 ml 50 ml # Voids 2 2 # Bowel Movements 4 4 Dressing: other Wound: other Drains: other Cardiovascular: RSR Respiratory: decreased breath sounds Abdomen: soft, non-tender, present bowel sounds, non-distended Extremities: no edema, no tenderness, no cyanosis Assessment Post-op Diagnosis same Plan Problems: (1) Malnutrition Assessment & Plan: DAILY ESTIMATED NEEDS: Needs based on ESRD+ HD, underweight, wound/ 39.5kg 35-40 kcals/kg 0704-2667 total kcals 1.25-1.8 g protein/kg 49-71 g total protein 20-22 mL/kg 790-869 total fluid mLs NUTRITION DIAGNOSIS: * Increased kcal and protein needs r/t underweight status, HD needs, wuond healing as evidenced by pt is underweight per guidelines, ESRD, on HD, admitted non-blanching erythema wounds @ BL heels and sacrum * Swallowing difficulty R/T dysphagia as evidenced by [employer] recommends temporary nonoral feeding at this time, s/p NGT insertion, on NGT feeding-> now s/p self removal, NPO. CURRENT TF:NPO PO DIET RECOMMENDATIONS: WHEN SAFE FOR ORAL DIET -> renal/ texture per [employer] ENTERAL NUTRITION RECOMMENDATIONS: W/ GI access: Nepro @ 35ml/hr x 22 hrs to provide 770ml, 1386kcal, 62g prot, 560ml free water * W/ GI access, resume TF on Nepro * Initiate Nepro @ 15ml/hr x 6 hrs, advance 10ml q 4-6 hrs as tolerated to goal rate. * Hold 1 hour before and after Synthroid med * HOB over 30 degrees/ water flush per MD. ADDITIONAL RECOMMENDATIONS: 1) Calibrated bed scale wt for accurate CBW -> daily wt monitoring Per HD record: dry wt on 07/30=39.5kg (87lbs) 2) Wound care: (W/ GI access) add Nephorivte x 1 + Balta BID 3) Monitor NPO status: without GI access at this time, s/p pulling out NGT 4) Monitor for hypoglycemia while NPO 5) Monitor for continuity of HD (2) Septic arthritis Assessment & Plan: Pt presented on admission with generalized scaly rash . pt noted to be restless and scratching at skin. Bleeding from oral mucosa noted. Joint deformity noted to R shoulder. Surgical incision approximated with 11 sutures. Erythema but no exudate,or elevation in skin temp at site of incision. Historical incision R hip that is tunneled.Small amt seropurulent exudate noted. Periwound is erythematous,but no elevation in skin temp noted. No odor noted. Non-blanching erythema noted to sacrum. Perianal area is erythematous and excoriated. L heel is boggy with non-blanching erythema. R heel is soft with non-blanching erythema. No evidence of skin breakdown to all other bony prominences. Tx.plan: Cover R shoulder with Drsg and change daily and prn. Cleanse R hip wound with Saline. Apply Therahoney.Apply Cavilon Skin Barrier periwound. Cover with Optifoam drsg. Change every 3 days and prn. Apply Moisture Barrier Paste to perianal area and buttocks. Cover Sacrum with Optifoam drsg. Change every 3 days and prn. Apply Cavilon Skin Barrier to both heels. Cover each heel with Optifoam drsg. Change every 7 days and prn. APM/ELVIA Mattress overlay. Reposition at least every 2hours or as tolerated. Off-load heels with pillow. HD cath necessary HD as renal likely will need intubation (3) Wound, open, hip or thigh with complication Assessment & Plan: slow healing will need nutritional optimization difficult ng tube peg when stable sutures removed from right shoulder comfortable wean vent may need trach (4) Abscess of right hip (5) possible septic arthritis (6) Renal failure (ARF), acute on chronic Assessment & Plan: cont HD will need tunneled cath placement okay to use fem line for now but will need change soon. line monitored and clean dressings going well (7) Pneumonia Assessment & Plan: intubated on vent support not tolerating weaning may need trach Camilo James Aug 30, 2019 12:33
--- NOTE | 2019-08-30 14:18 | Diagnostic Imaging Report ---
. Indication: Status post thoracentesis Technique: One view of the chest Comparison: . 05/04/2020 Findings: Interim marked improvement in previously demonstrated left pleural effusion, status post thoracentesis. There is some persistent opacity in left hemithorax, which may represent residual pleural fluid versus consolidation/atelectasis. Round left basilar opacity likely represents a nipple shadow. Less optimal inspiration seen in the right lung, with some basilar atelectatic changes. No pneumothorax is evident. Stable satisfactory position of endotracheal tube. There is a gastrostomy again noted. Severe destructive changes of the right shoulder are again noted. This is been previously worked up. Impression: Improved left pleural effusion, status post thoracentesis. No radiographically evident complication. Increased right basilar atelectasis Other essentially stable findings as described
--- NOTE | 2019-08-30 14:23 | Diagnostic Imaging Report ---
Indications: Pleural effusion Technique: Ultrasound used to localize optimal puncture site. Sterile prepping and draping left chest. Local anesthesia with 1% lidocaine. Under real-time ultrasound guidance, puncture pleural space using thoracentesis needle. Stylet removed. Catheter placed to vacuum bottle suction. Total 150 milliliters of bloody fluid aspirated. Patient tolerated procedure well, without immediate complication. Findings: Followup sonography demonstrates complete resolution of pleural fluid. Impression: Successful ultrasound-guided thoracentesis, yielding 150 milliliters of bloody fluid
--- NOTE | 2019-08-30 17:02 | Critical Care Progress Note ---
Assessment/Plan Assessment/Plan respiratory failure hemoptysis resolved hypoxemia chronic renal failure toxic met encephalopathy severe protein calorie malnutrition cachexia left lung whiteout/collapse, improved with intubation s/p intubation anemia pulmonary edema with elevated BNP + pleural effusion PLAN thoracentesis completed; monitor imaging care noted and reviewed discussed with staff and primary failed weaning past few days- 3rd spacing noted d/w family as to trach vs terminal care; per Dr. Beltran keep negative and monitor osmotic pressures ID and other specialist reviewed close follow up discussed elevated head and monitor ROM watch fluid status nutrition as able isolation as needed off load as able and monitor skin exam ROM as able ICU care and management critical at present requires ICU management and close follow up care feeds as able and monitor residuals medications/laboratory data/nursing notes/ICU care reviewed in detail note reviewed and edited care discussed with RN and RT ICU time spent >40 minutes coordinating care Critical Care - Subjective Interval Events: care noted ICU care reviewed meds noted ROS Limited/Unobtainable: Yes Condition: critical EKG Rhythm: Sinus Rhythm Residuals: minimal Tube Feeding Tolerated: yes I&O: Intake and Output 08/29/19 08/30/19 19:00 07:00 Intake Total 620 ml 415 ml Balance 620 ml 415 ml Intake Free Water 50 ml Tube Feeding 420 ml 315 ml Other 200 ml 50 ml # Voids 2 2 # Bowel Movements 4 4 Critical Care - Objective CXR: reviewed changes ET-Tube: 7.0 ET Position: 21 Last 24 Hour Vital Signs Date Time Temp Pulse Resp B/P (MAP) Pulse Ox O2 Delivery O2 Flow Rate FiO2 08/30/19 16:43 98 08/30/19 16:00 Mechanical Ventilator Mechanical Ventilator Mechanical Ventilator Mechanical Ventilator 08/30/19 16:00 40 08/30/19 16:00 86 27 100/58 (72) 92 86 08/30/19 15:26 75 18 40 08/30/19 15:00 75 22 97/51 (66) 100 75 08/30/19 14:00 99 30 131/72 (91) 100 99 08/30/19 13:00 97.8 77 22 136/113 (121) 100 77 08/30/19 12:37 73 18 40 08/30/19 12:00 Mechanical Ventilator Mechanical Ventilator Mechanical Ventilator Mechanical Ventilator 08/30/19 12:00 74 25 130/69 (89) 93 74 08/30/19 12:00 40 08/30/19 11:46 79 08/30/19 11:03 99 08/30/19 11:00 116 30 159/97 (117) 100 116 08/30/19 10:59 117 30 40 08/30/19 10:00 66 22 146/72 (96) 99 66 08/30/19 09:30 78 25 40 08/30/19 09:24 57 18 40 08/30/19 09:00 72 27 147/69 (95) 100 72 08/30/19 08:00 40 08/30/19 08:00 Mechanical Ventilator Mechanical Ventilator Mechanical Ventilator Mechanical Ventilator 08/30/19 08:00 89 08/30/19 08:00 98.7 80 20 163/94 (117) 97 80 08/30/19 07:00 76 29 156/83 (107) 100 08/30/19 06:58 70 22 40 08/30/19 06:30 68 28 08/30/19 06:00 153/71 08/30/19 06:00 67 26 153/71 (98) 100 08/30/19 05:13 61 18 40 08/30/19 05:00 64 26 157/68 (97) 100 08/30/19 04:00 97.5 64 20 153/71 (98) 100 08/30/19 04:00 Mechanical Ventilator Mechanical Ventilator Mechanical Ventilator Mechanical Ventilator 08/30/19 04:00 40 08/30/19 03:11 66 08/30/19 03:05 62 18 40 08/30/19 03:00 62 26 147/70 (95) 100 08/30/19 02:00 77 26 151/93 (112) 100 08/30/19 01:05 74 24 40 08/30/19 01:00 75 23 142/70 (94) 94 08/30/19 00:00 40 08/30/19 00:00 Mechanical Ventilator Mechanical Ventilator Mechanical Ventilator Mechanical Ventilator 08/30/19 00:00 97.4 71 27 156/70 (98) 99 08/29/19 23:53 154/72 08/29/19 23:51 70 31 154/72 (99) 100 08/29/19 23:18 79 24 166/80 (108) 99 08/29/19 23:15 81 29 40 08/29/19 23:02 69 08/29/19 23:00 85 23 164/102 (122) 89 08/29/19 22:00 53 18 130/56 (80) 100 08/29/19 21:00 56 19 120/55 (76) 100 08/29/19 21:00 54 18 40 08/29/19 20:00 40 08/29/19 20:00 97.4 56 19 139/57 (84) 100 08/29/19 20:00 Mechanical Ventilator Mechanical Ventilator Mechanical Ventilator Mechanical Ventilator 08/29/19 19:47 56 08/29/19 19:13 57 18 40 08/29/19 19:00 56 18 131/55 (80) 100 08/29/19 18:00 56 25 131/61 (84) 100 08/29/19 17:55 54 120/58 08/29/19 17:55 120/58 08/29/19 17:10 55 18 40 08/29/19 17:00 54 25 120/58 (78) 98 Labs: Labs Test 08/28/19 05:10 08/29/19 03:30 08/29/19 03:50 08/29/19 08:15 White Blood Count 4.4 K/UL (4.8-10.8) 6.8 K/UL (4.8-10.8) Red Blood Count 3.44 M/UL (4.20-5.40) 3.14 M/UL (4.20-5.40) Hemoglobin 10.4 G/DL (12.0-16.0) 9.5 G/DL (12.0-16.0) Hematocrit 31.3 % (37.0-47.0) 28.2 % (37.0-47.0) Mean Corpuscular Volume 91 FL (80-99) 90 FL (80-99) Mean Corpuscular Hemoglobin 30.1 PG (27.0-31.0) 30.2 PG (27.0-31.0) Mean Corpuscular Hemoglobin Concent 33.1 G/DL (32.0-36.0) 33.6 G/DL (32.0-36.0) Red Cell Distribution Width 16.3 % (11.6-14.8) 16.4 % (11.6-14.8) Platelet Count 530 K/UL (150-450) 591 K/UL (150-450) Mean Platelet Volume 5.7 FL (6.5-10.1) 6.0 FL (6.5-10.1) Neutrophils (%) (Auto) 48.5 % (45.0-75.0) 55.9 % (45.0-75.0) Lymphocytes (%) (Auto) 40.5 % (20.0-45.0) 34.5 % (20.0-45.0) Monocytes (%) (Auto) 7.9 % (1.0-10.0) 6.8 % (1.0-10.0) Eosinophils (%) (Auto) 1.6 % (0.0-3.0) 1.3 % (0.0-3.0) Basophils (%) (Auto) 1.6 % (0.0-2.0) 1.5 % (0.0-2.0) Sodium Level 141 MMOL/L (136-145) 139 MMOL/L (136-145) Potassium Level 3.2 MMOL/L (3.5-5.1) 3.7 MMOL/L (3.5-5.1) Chloride Level 103 MMOL/L (98-107) 102 MMOL/L (98-107) Carbon Dioxide Level 30 MMOL/L (21-32) 25 MMOL/L (21-32) Anion Gap 8 mmol/L (5-15) 12 mmol/L (5-15) Blood Urea Nitrogen 36 mg/dL (7-18) 35 mg/dL (7-18) Creatinine 2.9 MG/DL (0.55-1.30) 3.2 MG/DL (0.55-1.30) Estimat Glomerular Filtration Rate 15.7 mL/min (>60) 13.9 mL/min (>60) Glucose Level 76 MG/DL (74-106) 144 MG/DL (74-106) Calcium Level 8.9 MG/DL (8.5-10.1) 8.4 MG/DL (8.5-10.1) Phosphorus Level 3.5 MG/DL (2.5-4.9) 3.3 MG/DL (2.5-4.9) Magnesium Level 2.3 MG/DL (1.8-2.4) 2.3 MG/DL (1.8-2.4) Total Bilirubin 0.5 MG/DL (0.2-1.0) 0.3 MG/DL (0.2-1.0) Aspartate Amino Transf (AST/SGOT) 28 U/L (15-37) 24 U/L (15-37) Alanine Aminotransferase (ALT/SGPT) < 6 U/L (12-78) 15 U/L (12-78) Alkaline Phosphatase 113 U/L (46-116) 167 U/L (46-116) C-Reactive Protein, Quantitative 6.3 mg/dL (0.00-0.90) 5.4 mg/dL (0.00-0.90) Pro-B-Type Natriuretic Peptide > 13109 pg/mL (0-125) > 30096 pg/mL (0-125) Total Protein 6.2 G/DL (6.4-8.2) 5.9 G/DL (6.4-8.2) Albumin 1.9 G/DL (3.4-5.0) 1.7 G/DL (3.4-5.0) Globulin 4.3 g/dL 4.2 g/dL Albumin/Globulin Ratio 0.4 (1.0-2.7) 0.4 (1.0-2.7) Thyroid Stimulating Hormone (TSH) 8.357 uiU/mL (0.358-3.740) Free Thyroxine 1.23 NG/DL (0.76-1.46) Prothrombin Time 10.7 SEC (9.30-11.50) Prothromb Time International Ratio 1.0 (0.9-1.1) Activated Partial Thromboplast Time 29 SEC (23-33) Test 08/30/19 16:41 Arterial Blood pH 7.553 (7.350-7.450) Arterial Blood Partial Pressure CO2 35.7 mmHg (35.0-45.0) Arterial Blood Partial Pressure O2 111.7 mmHg (75.0-100.0) Arterial Blood HCO3 30.7 mmol/L (22.0-26.0) Arterial Blood Oxygen Saturation 97.5 % (95-100) Arterial Blood Base Excess 7.7 (-2-2) Cuauhtemoc Test Positive Objective: WDWN NAD intubated reduced breath sounds bilaterally with some rhonchi [id number] without MRG NABS nontender no HSM no CCE contractures feeding tube in place no distention poorly responsive nonfocal cachectic reviewed and edited Accucheck: 86 Malcolm Cruz MD Aug 30, 2019 17:02
--- NOTE | 2019-08-30 19:59 | General Progress Note ---
Assessment/Plan Problem List: (1) Failure to thrive (0-17) ICD Codes: R62.51 - Failure to thrive (0-17) SNOMED: 707095184 (2) Hypertensive kidney disease ICD Codes: I12.9 - Hypertensive chronic kidney disease with stage 1 through stage 4 chronic kidney disease, or unspecified chronic kidney disease SNOMED: 84822828 (3) Pneumonia ICD Codes: J18.9 - Pneumonia, unspecified organism SNOMED: 963135249 Qualifiers: Qualified Codes: J18.9 - Pneumonia, unspecified organism (4) ESRD (end stage renal disease) ICD Codes: N18.6 - End stage renal disease SNOMED: 57776733 (5) Septic arthritis ICD Codes: M00.9 - Pyogenic arthritis, unspecified SNOMED: 614683266 (6) Thrombocytopenia ICD Codes: D69.6 - Thrombocytopenia, unspecified SNOMED: 008068663 (7) Hypotension ICD Codes: I95.9 - Hypotension, unspecified SNOMED: 56214778 Qualifiers: Qualified Codes: I95.3 - Hypotension of hemodialysis (8) Malnutrition ICD Codes: E46 - Unspecified protein-calorie malnutrition SNOMED: 71873808 Status: stable, not improved, unchanged, deteriorating Assessment/Plan: cont resp care chest pt/suctioning resp rx tap effusion cont weaning- try simv monitor plts iv PPI iv abx HD bp rx critical and guarded tube feeds per gi will d/w family trach vs terminal extubation Subjective Constitutional: Reports: malaise, weakness HEENT: Reports: no symptoms Cardiovascular: Reports: no symptoms Respiratory: Reports: cough, shortness of breath Gastrointestinal/Abdominal: Reports: no symptoms Genitourinary: Reports: no symptoms Neurologic/Psychiatric: Reports: pre-existing deficit Endocrine: Reports: no symptoms Hematologic/Lymphatic: Reports: anemia Allergies: Coded Allergies: VANCOMYCIN (Unverified Allergy, Unknown, 08/02/19) All Systems: reviewed and negative except above Subjective no events. on the vent. remains alert and awake. no fevers. alert. minimal congestion. +copious oral secretions tolerated weab x 1 hr yesterday. tap due for today Objective Last 24 Hour Vital Signs Date Time Temp Pulse Resp B/P (MAP) Pulse Ox O2 Delivery O2 Flow Rate FiO2 08/30/19 19:16 90 24 60 3/17/20 18:00 95 23 92/58 (69) 98 95 08/30/19 18:00 95 92/58 08/30/19 18:00 92/58 08/30/19 17:15 97.7 78 21 93/55 (68) 100 78 08/30/19 17:06 75 18 40 08/30/19 17:00 83 20 93/55 (68) 94 83 08/30/19 16:43 98 08/30/19 16:30 75 22 40 40 08/30/19 16:00 Mechanical Ventilator Mechanical Ventilator Mechanical Ventilator Mechanical Ventilator 08/30/19 16:00 78 08/30/19 16:00 40 08/30/19 16:00 86 27 100/58 (72) 92 86 08/30/19 15:26 75 18 40 08/30/19 15:00 75 22 97/51 (66) 100 75 08/30/19 14:00 99 30 131/72 (91) 100 99 08/30/19 13:00 97.8 77 22 136/113 (121) 100 77 08/30/19 12:37 73 18 40 08/30/19 12:00 Mechanical Ventilator Mechanical Ventilator Mechanical Ventilator Mechanical Ventilator 08/30/19 12:00 74 25 130/69 (89) 93 74 08/30/19 12:00 40 08/30/19 11:46 79 08/30/19 11:03 99 08/30/19 11:00 116 30 159/97 (117) 100 116 08/30/19 10:59 117 30 40 08/30/19 10:00 66 22 146/72 (96) 99 66 08/30/19 09:30 78 25 40 08/30/19 09:24 57 18 40 08/30/19 09:00 72 27 147/69 (95) 100 72 08/30/19 08:00 40 08/30/19 08:00 Mechanical Ventilator Mechanical Ventilator Mechanical Ventilator Mechanical Ventilator 08/30/19 08:00 89 08/30/19 08:00 98.7 80 20 163/94 (117) 97 80 08/30/19 07:00 76 29 156/83 (107) 100 08/30/19 06:58 70 22 40 08/30/19 06:30 68 28 08/30/19 06:00 153/71 08/30/19 06:00 67 26 153/71 (98) 100 08/30/19 05:13 61 18 40 08/30/19 05:00 64 26 157/68 (97) 100 08/30/19 04:00 97.5 64 20 153/71 (98) 100 08/30/19 04:00 Mechanical Ventilator Mechanical Ventilator Mechanical Ventilator Mechanical Ventilator 08/30/19 04:00 40 08/30/19 03:11 66 08/30/19 03:05 62 18 40 08/30/19 03:00 62 26 147/70 (95) 100 08/30/19 02:00 77 26 151/93 (112) 100 08/30/19 01:05 74 24 40 08/30/19 01:00 75 23 142/70 (94) 94 08/30/19 00:00 40 08/30/19 00:00 Mechanical Ventilator Mechanical Ventilator Mechanical Ventilator Mechanical Ventilator 08/30/19 00:00 97.4 71 27 156/70 (98) 99 08/29/19 23:53 154/72 08/29/19 23:51 70 31 154/72 (99) 100 08/29/19 23:18 79 24 166/80 (108) 99 08/29/19 23:15 81 29 40 08/29/19 23:02 69 08/29/19 23:00 85 23 164/102 (122) 89 08/29/19 22:00 53 18 130/56 (80) 100 08/29/19 21:00 56 19 120/55 (76) 100 08/29/19 21:00 54 18 40 08/29/19 20:00 40 08/29/19 20:00 97.4 56 19 139/57 (84) 100 08/29/19 20:00 Mechanical Ventilator Mechanical Ventilator Mechanical Ventilator Mechanical Ventilator Intake and Output 08/29/19 08/30/19 19:00 07:00 Intake Total 620 ml 415 ml Balance 620 ml 415 ml Intake Free Water 50 ml Tube Feeding 420 ml 315 ml Other 200 ml 50 ml # Voids 2 2 # Bowel Movements 4 4 Laboratory Tests 08/30/19 16:41: Arterial Blood pH 7.553*H, Arterial Blood Partial Pressure CO2 35.7, Arterial Blood Partial Pressure O2 111.7H, Arterial Blood HCO3 30.7H, Arterial Blood Oxygen Saturation 97.5, Arterial Blood Base Excess 7.7H, Cuauhtemoc Test Positive Height (Feet): 5 Height (Inches): 4.00 Weight (Pounds): 116 Objective General Appearance: WD/WN, awake/moaning. orally intubated Neck: supple Cardiovascular: normal rate Respiratory/Chest: rhonchi - bilaterally Abdomen: normal bowel sounds, non tender, soft, no organomegaly Edema: no edema noted Arm (L), no edema noted Arm (R), no edema noted Leg (L), no edema noted Leg (R), no edema noted Pedal (L), no edema noted Pedal (R), no edema noted Generalized Neurologic: disoriented, aphasia Nate Beltran MD Aug 30, 2019 19:59
[2019-08-30] MEDS: Dyna-Hex 2% Top Sol 2oz TOPIC SCH (20:42)
--- NOTE | 2019-08-30 20:53 | General Progress Note ---
Assessment/Plan Status: stable, not improved, unchanged, deteriorating Assessment/Plan: Assessment - Severe ulcerative esophagitis on endoscopy - on BID PPI - Resp failure - thrombocytopenia --> resolved - Renal failure - aspiration risk --> s/p PEG - anemia - bradycardia - Poor prognosis Recommendations - Continue TF - reduce water flushes - elevate HOB - monitor H&H - Wean / extubate Subjective Allergies: Coded Allergies: VANCOMYCIN (Unverified Allergy, Unknown, 08/02/19) Subjective Above noted No events overnight tolerating TF Objective Last 24 Hour Vital Signs Date Time Temp Pulse Resp B/P (MAP) Pulse Ox O2 Delivery O2 Flow Rate FiO2 08/30/19 20:00 77 08/30/19 20:00 97.5 77 20 104/48 (66) 62 77 08/30/19 20:00 40 08/30/19 20:00 Mechanical Ventilator Mechanical Ventilator Mechanical Ventilator Mechanical Ventilator 08/30/19 19:16 90 24 60 08/30/19 19:00 102 25 77/47 (57) 95 102 08/30/19 18:00 95 23 92/58 (69) 98 95 08/30/19 18:00 95 92/58 08/30/19 18:00 92/58 08/30/19 17:15 97.7 78 21 93/55 (68) 100 78 08/30/19 17:06 75 18 40 08/30/19 17:00 83 20 93/55 (68) 94 83 08/30/19 16:43 98 08/30/19 16:30 75 22 40 40 08/30/19 16:00 Mechanical Ventilator Mechanical Ventilator Mechanical Ventilator Mechanical Ventilator 08/30/19 16:00 78 08/30/19 16:00 40 08/30/19 16:00 86 27 100/58 (72) 92 86 08/30/19 15:26 75 18 40 08/30/19 15:00 75 22 97/51 (66) 100 75 08/30/19 14:00 99 30 131/72 (91) 100 99 08/30/19 13:00 97.8 77 22 136/113 (121) 100 77 08/30/19 12:37 73 18 40 08/30/19 12:00 Mechanical Ventilator Mechanical Ventilator Mechanical Ventilator Mechanical Ventilator 08/30/19 12:00 74 25 130/69 (89) 93 74 08/30/19 12:00 40 3/17/20 11:46 79 08/30/19 11:03 99 08/30/19 11:00 116 30 159/97 (117) 100 116 08/30/19 10:59 117 30 40 08/30/19 10:00 66 22 146/72 (96) 99 66 08/30/19 09:30 78 25 40 08/30/19 09:24 57 18 40 08/30/19 09:00 72 27 147/69 (95) 100 72 08/30/19 08:00 40 08/30/19 08:00 Mechanical Ventilator Mechanical Ventilator Mechanical Ventilator Mechanical Ventilator 08/30/19 08:00 89 08/30/19 08:00 98.7 80 20 163/94 (117) 97 80 08/30/19 07:00 76 29 156/83 (107) 100 08/30/19 06:58 70 22 40 08/30/19 06:30 68 28 08/30/19 06:00 153/71 08/30/19 06:00 67 26 153/71 (98) 100 08/30/19 05:13 61 18 40 08/30/19 05:00 64 26 157/68 (97) 100 08/30/19 04:00 97.5 64 20 153/71 (98) 100 08/30/19 04:00 Mechanical Ventilator Mechanical Ventilator Mechanical Ventilator Mechanical Ventilator 08/30/19 04:00 40 08/30/19 03:11 66 08/30/19 03:05 62 18 40 08/30/19 03:00 62 26 147/70 (95) 100 08/30/19 02:00 77 26 151/93 (112) 100 08/30/19 01:05 74 24 40 08/30/19 01:00 75 23 142/70 (94) 94 08/30/19 00:00 40 08/30/19 00:00 Mechanical Ventilator Mechanical Ventilator Mechanical Ventilator Mechanical Ventilator 08/30/19 00:00 97.4 71 27 156/70 (98) 99 08/29/19 23:53 154/72 08/29/19 23:51 70 31 154/72 (99) 100 08/29/19 23:18 79 24 166/80 (108) 99 08/29/19 23:15 81 29 40 08/29/19 23:02 69 08/29/19 23:00 85 23 164/102 (122) 89 08/29/19 22:00 53 18 130/56 (80) 100 08/29/19 21:00 56 19 120/55 (76) 100 08/29/19 21:00 54 18 40 Intake and Output 08/29/19 08/30/19 19:00 07:00 Intake Total 620 ml 415 ml Balance 620 ml 415 ml Intake Free Water 50 ml Tube Feeding 420 ml 315 ml Other 200 ml 50 ml # Voids 2 2 # Bowel Movements 4 4 Laboratory Tests 08/30/19 16:41: Arterial Blood pH 7.553*H, Arterial Blood Partial Pressure CO2 35.7, Arterial Blood Partial Pressure O2 111.7H, Arterial Blood HCO3 30.7H, Arterial Blood Oxygen Saturation 97.5, Arterial Blood Base Excess 7.7H, Cuauhtemoc Test Positive Height (Feet): 5 Height (Inches): 4.00 Weight (Pounds): 116 Objective Debilitated frail woman NCAT (+) ETT supple scattered ronchi RR abd soft ND NT, (+) GT no edema Cristy Elizondo MD Aug 30, 2019 20:53
--- NOTE | 2019-08-30 21:08 | Diagnostic Imaging Report ---
Indication: Dyspnea Comparison: Earlier the same day A single view chest radiograph was obtained. Findings: There is complete opacification of the left lung. There appears to be large left pleural effusion. Endotracheal tube is in good position. The right lung volume is low but grossly clear. The heart is probably enlarged. IMPRESSION: Large left pleural effusion. In light of the recent thoracentesis, this amount of pleural effusion is concerning for hemothorax. Stat CT chest is recommended. Consultation with surgery is recommended. Critical value communication. Findings were discussed via text exchange with Dr. Munson at 3:32pm, 08/31/2019.
[2019-08-31] VITALS (25 sets, daily range): BP systolic 99–162; BP diastolic 44–78
--- NOTE | 2019-08-31 04:30 | Progress Note ---
DATE: 08/30/2019 CARDIOLOGY PROGRESS NOTE SUBJECTIVE: Condition largely unchanged. Remains on G-tube feedings. Remains on ventilator support. Still has copious secretions. Thoracentesis planned. ABG is 7.55, 35, 111. PHYSICAL EXAMINATION: LUNGS: Bilateral breath sounds. Rhonchi. HEART: Regular rhythm and rate. Normal S1, S2. ABDOMEN: Soft. EXTREMITIES: Trace edema. IMPRESSION: 1. Respiratory failure. 2. Recovered shock due to sepsis. 3. Healthcare-associated pneumonia. 4. Severe protein-calorie malnutrition. 5. Hypothyroidism. 6. Sinus bradycardia, resolving. 7. End-stage renal disease. 8. Hypertensive heart disease. 9. Acute on chronic diastolic congestive heart failure. PLAN: 1. Weaning efforts. 2. Antimicrobials. 3. Hemodialysis with ultrafiltration. 4. No beta-elissa therapy. 5. Continue thyroid replacement. Abel Stubbs M.D. DR: REBECCA JOB#: [id number] CC:
[2019-08-31] MEDS: HydrALAZINE 25mg tab NG SCH ×5 (05:38→23:54)
[2019-08-31 06:06] LABS: ALANINE AMINOTRANSFERASE 137 U/L (12-78); ALBUMIN 2.4 G/DL (3.4-5.0); ALBUMIN/GLOBULIN RATIO 0.8 (1.0-2.7); ALKALINE PHOSPHATASE 120 U/L (46-116); ANION GAP 10 mmol/L (5-15); ASPARTATE AMINO TRANSFERASE 531 U/L (15-37); BILIRUBIN,TOTAL 0.3 MG/DL (0.2-1.0); BLOOD UREA NITROGEN 29 mg/dL (7-18); CALCIUM 8.7 MG/DL (8.5-10.1); CARBON DIOXIDE 30 MMOL/L (21-32); CHLORIDE 108 MMOL/L (98-107); CREATININE 2.3 MG/DL (0.55-1.30); POTASSIUM 3.5 MMOL/L (3.5-5.1); SODIUM 148 MMOL/L (136-145)
--- NOTE | 2019-08-31 06:51 | Hematology/Onc Progress Note ---
Assessment/Plan Assessment/Plan # Thrombocytopenia - potential causes multifactorial, evaluate liver and viral etiologies to begin, in this case due to sepsis with septic shock also with cirrhosis and liver disease --> Hep panel and HIV ordered -> neg --> US abd to evaluate for cirrhosis and hsm ordered --> reviewed --> Peripheral smear ordered to evaluate for blasts /schistocytes --> abx and other meds have been reviewed --> ok for ppx if plt >50k w/ either heparin or lovenox --> Transfuse if Plt < 20k and fever, or if Plt < 10k without fever --> okay for permacath change once plt better--> for 08/14 --> plt trend: 43-->83-->237k-->292-->341-->315-->388 -->444-->530 # Anemia of chronic disease due to underlying chronic medical issues, multifactorial v Gi bleed --> Anemia workup has been ordered, rule out gi bleed --> No evidence of hemolysis is noted, peripheral smear has been reviewed. --> Hgb goal >7. Transfuse prn. --> Epogen has been started --> HOLD OFF IRON ferritin is >1000 --> Medications have been reviewed --> low threshold for gi evaluation in case has occult + --> hgb 9-->6.7-->9.2 -->10.5-->10.6 -->10.7-->10-->10.5-->9.8-->10.4-->9.5 --> blood tx: 08/11 # Early sepsis with shock. --> abx as per id, recs noted --> pressors as needed # Healthcare-associated pneumonia. --> recs reviewed --> abx: jung/micafungin-->jung --> 08/24 us chest: moderate left pleural effusion # Severe protein-calorie malnutrition. --> nutritional support # End-stage renal disease --> had as renal hd --> with permacath # History of hypertension. --> per cards, now with Bradycardia. # resp failure s/p vent/trach # HypoThyroid # Ngt feedings # Dvt ppx scd's The timing of this note does not necessarily reflect the time of the patient was seen. Greatly appreciate consultation. Subjective Constitutional: Denies: no symptoms, chills, fever, malaise, weakness, other HEENT: Denies: no symptoms, eye pain, blurred vision, tearing, double vision, ear pain, ear discharge, nose pain, nose congestion, throat pain, throat swelling, mouth pain, mouth swelling, other Cardiovascular: Denies: no symptoms, chest pain, edema, irregular heart rate, lightheadedness, palpitations, syncope, other Respiratory: Denies: no symptoms, cough, shortness of breath, SOB with excertion, SOB at rest, sputum, wheezing, other Gastrointestinal/Abdominal: Denies: no symptoms, abdomen distended, abdominal pain, black stools, tarry stools, blood in stool, constipated, diarrhea, difficulty swallowing, nausea, poor appetite, poor fluid intake, rectal bleeding , vomiting, other Genitourinary: Denies: no symptoms, burning, discharge, frequency, flank pain, hematuria, incontinence, pain, urgency, other Neurologic/Psychiatric: Denies: no symptoms, anxiety, depressed, emotional problems, headache, numbness, paresthesia, pre-existing deficit, seizure, tingling, tremors, weakness, other Endocrine: Denies: no symptoms, excessive sweating, flushing, intolerance to cold, intolerance to heat, increased hunger, increased thirst, increased urine, unexplained weight gain, unexplained weight loss, other Hematologic/Lymphatic: Denies: no symptoms, anemia, easy bleeding, easy bruising, adenopathy, other Allergies: Coded Allergies: VANCOMYCIN (Unverified Allergy, Unknown, 08/02/19) Subjective 08/11: no bleeding or chills, labs reviewed, no major bleeding, plt less than 50k 08/12: icu, s/p blood, hgb improved to 9.2, 08/14: icu, pending consent for thora and permacath, labs reviewed 08/15: new permacath placed, no bleeding, for hd, plt much improved, started lovenox sq 08/16: ett to be adjusted, bp on high end, micafungin started, possible bronch 08/17: weaning as per pulm, no events otherwise, labs noted 08/18: no events no bleeding, remains confused on vent, for hd 08/20: icu, failed to wean, labs reviewed, jung 08/21: resting in bed, no overnight events, labs reviewed 08/22: awake, confused, restraints, no overnight events 08/23: no events, no bleeding, on ppi bid 08/24: icu, failed to wean, labs reviewed 08/25: no overnight events, us chest, restraints, afebrile 08/26 difficult in weaning, nad, seen by surg, pulm labs noted 08/27 awake on restraints, thoracentesis for am, labs reviewed 08/29 no bleeding, no night sweats, no major changes, on ppi bid 08/30 no major events, remains on vent, no bleeding, dw pcp Objective Objective Current Medications Medications (Trade) Dose Ordered Sig/Javier Route PRN Reason Start Time Stop Time Status Last Admin Dose Admin Amlodipine Besylate (Norvasc) 5 mg BID NG 08/23/19 01:45 09/22/19 01:44 08/29/19 17:55 Atropine Sulfate (Atropine) 1 mg Q4H PRN IVP Per rx protocol 08/13/19 08:30 09/12/19 08:29 Chlorhexidine Gluconate (Nae-Hex 2%) 1 applic DAILY@1999 TOPIC 08/15/19 20:00 09/14/19 19:59 08/30/19 20:42 Dextrose (Dextrose 50%) 50 ml Q30M PRN IV Hypoglycemia 08/11/19 10:30 09/04/19 17:44 08/22/19 15:46 Diphenhydramine HCl (Benadryl) 50 mg Q4H PRN IVP Itching 08/09/19 14:30 09/08/19 14:29 08/13/19 02:39 Epoetin Thomas (Epoetin Thomas(ESRD on dialysis)) 4,000 unit THU-THU-THU SUBQ 08/12/19 21:00 09/11/19 20:59 08/29/19 21:03 Hydralazine HCl (Apresoline) 10 mg Q4H PRN IV For High Blood Pressure 08/18/19 12:44 09/17/19 12:43 08/22/19 09:22 Hydralazine HCl (Apresoline) 25 mg Q6HR NG 08/23/19 06:00 09/22/19 05:59 08/31/19 05:38 Lansoprazole (Prevacid) 30 mg BID GT 08/19/19 09:00 09/18/19 08:59 08/30/19 18:16 Levothyroxine Sodium (Synthroid) 50 mcg DAILY@0630 ORAL 08/25/19 06:30 09/24/19 06:29 08/31/19 05:39 Metoclopramide HCl (Reglan) 5 mg Q8H PRN IVP Nausea & Vomiting 08/09/19 12:39 09/08/19 12:38 Last 24 Hour Vital Signs Date Time Temp Pulse Resp B/P (MAP) Pulse Ox O2 Delivery O2 Flow Rate FiO2 08/31/19 06:28 69 18 08/31/19 06:00 68 18 135/56 (82) 100 68 08/31/19 05:38 144/55 08/31/19 05:10 66 18 45 08/31/19 05:00 65 21 134/51 (78) 65 08/31/19 04:00 67 08/31/19 04:00 Mechanical Ventilator Mechanical Ventilator Mechanical Ventilator Mechanical Ventilator 08/31/19 04:00 45 08/31/19 04:00 98.0 66 18 136/56 (82) 66 08/31/19 03:06 66 18 45 08/31/19 03:00 67 18 126/51 (76) 67 08/31/19 02:00 66 18 127/58 (81) 66 08/31/19 01:09 66 18 45 08/31/19 01:00 69 20 127/62 (83) 69 08/31/19 00:00 97.8 70 19 116/49 (71) 99 70 08/31/19 00:00 45 08/31/19 00:00 116/49 08/31/19 00:00 Mechanical Ventilator Mechanical Ventilator Mechanical Ventilator Mechanical Ventilator 08/31/19 00:00 74 08/30/19 22:41 68 18 45 08/30/19 22:00 66 18 99/46 (63) 100 66 08/30/19 21:13 68 18 45 08/30/19 21:00 68 18 93/46 (62) 100 68 08/30/19 20:00 77 08/30/19 20:00 97.5 77 20 104/48 (66) 62 77 08/30/19 20:00 40 08/30/19 20:00 Mechanical Ventilator Mechanical Ventilator Mechanical Ventilator Mechanical Ventilator 08/30/19 19:16 90 24 60 08/30/19 19:00 102 25 77/47 (57) 95 102 08/30/19 18:00 95 23 92/58 (69) 98 95 08/30/19 18:00 95 92/58 08/30/19 18:00 92/58 08/30/19 17:15 97.7 78 21 93/55 (68) 100 78 08/30/19 17:06 75 18 40 08/30/19 17:00 83 20 93/55 (68) 94 83 08/30/19 16:43 98 08/30/19 16:30 75 22 40 40 08/30/19 16:00 Mechanical Ventilator Mechanical Ventilator Mechanical Ventilator Mechanical Ventilator 08/30/19 16:00 78 08/30/19 16:00 40 08/30/19 16:00 86 27 100/58 (72) 92 86 08/30/19 15:26 75 18 40 08/30/19 15:00 75 22 97/51 (66) 100 75 08/30/19 14:00 99 30 131/72 (91) 100 99 08/30/19 13:00 97.8 77 22 136/113 (121) 100 77 08/30/19 12:37 73 18 40 08/30/19 12:00 Mechanical Ventilator Mechanical Ventilator Mechanical Ventilator Mechanical Ventilator 08/30/19 12:00 74 25 130/69 (89) 93 74 08/30/19 12:00 40 08/30/19 11:46 79 08/30/19 11:03 99 08/30/19 11:00 116 30 159/97 (117) 100 116 08/30/19 10:59 117 30 40 08/30/19 10:00 66 22 146/72 (96) 99 66 08/30/19 09:30 78 25 40 08/30/19 09:24 57 18 40 08/30/19 09:00 72 27 147/69 (95) 100 72 08/30/19 08:00 40 08/30/19 08:00 Mechanical Ventilator Mechanical Ventilator Mechanical Ventilator Mechanical Ventilator 08/30/19 08:00 89 08/30/19 08:00 98.7 80 20 163/94 (117) 97 80 08/30/19 07:00 76 29 156/83 (107) 100 08/30/19 06:58 70 22 40 08/30/19 06:30 68 28 08/30/19 06:00 153/71 08/30/19 06:00 67 26 153/71 (98) 100 08/30/19 05:13 61 18 40 08/30/19 05:00 64 26 157/68 (97) 100 08/30/19 04:00 97.5 64 20 153/71 (98) 100 08/30/19 04:00 Mechanical Ventilator Mechanical Ventilator Mechanical Ventilator Mechanical Ventilator 08/30/19 04:00 40 08/30/19 03:11 66 08/30/19 03:05 62 18 40 08/30/19 03:00 62 26 147/70 (95) 100 08/30/19 02:00 77 26 151/93 (112) 100 08/30/19 01:05 74 24 40 08/30/19 01:00 75 23 142/70 (94) 94 08/30/19 00:00 40 08/30/19 00:00 Mechanical Ventilator Mechanical Ventilator Mechanical Ventilator Mechanical Ventilator 08/30/19 00:00 97.4 71 27 156/70 (98) 99 08/29/19 23:53 154/72 08/29/19 23:51 70 31 154/72 (99) 100 08/29/19 23:18 79 24 166/80 (108) 99 08/29/19 23:15 81 29 40 08/29/19 23:02 69 08/29/19 23:00 85 23 164/102 (122) 89 08/29/19 22:00 53 18 130/56 (80) 100 08/29/19 21:00 56 19 120/55 (76) 100 08/29/19 21:00 54 18 40 08/29/19 20:00 40 08/29/19 20:00 97.4 56 19 139/57 (84) 100 08/29/19 20:00 Mechanical Ventilator Mechanical Ventilator Mechanical Ventilator Mechanical Ventilator 08/29/19 19:47 56 08/29/19 19:13 57 18 40 08/29/19 19:00 56 18 131/55 (80) 100 08/29/19 18:00 56 25 131/61 (84) 100 08/29/19 17:55 54 120/58 08/29/19 17:55 120/58 08/29/19 17:10 55 18 40 08/29/19 17:00 54 25 120/58 (78) 98 08/29/19 16:00 Mechanical Ventilator Mechanical Ventilator Mechanical Ventilator Mechanical Ventilator 08/29/19 16:00 40 08/29/19 16:00 54 08/29/19 16:00 97.0 63 19 131/64 (86) 93 08/29/19 15:29 70 19 40 08/29/19 15:00 86 25 131/74 (93) 87 08/29/19 14:00 59 19 143/60 (87) 100 08/29/19 13:00 62 27 140/59 (86) 100 08/29/19 12:32 147/77 08/29/19 12:00 40 08/29/19 12:00 Mechanical Ventilator Mechanical Ventilator Mechanical Ventilator Mechanical Ventilator 08/29/19 12:00 97.2 69 27 147/77 (100) 99 08/29/19 11:26 65 08/29/19 11:00 65 16 144/63 (90) 93 08/29/19 10:53 66 20 40 08/29/19 10:00 60 18 149/67 (94) 99 08/29/19 09:30 98 08/29/19 09:28 60 18 40 08/29/19 09:23 68 149/99 08/29/19 09:00 80 23 149/99 (116) 100 08/29/19 08:00 68 08/29/19 08:00 40 08/29/19 08:00 97.0 61 20 133/59 (83) 95 08/29/19 08:00 Mechanical Ventilator Mechanical Ventilator Mechanical Ventilator Mechanical Ventilator 08/29/19 07:16 78 21 40 08/29/19 07:00 81 31 170/81 (110) 99 08/29/19 07:00 81 31 170/81 (110) 99 Intake and Output 08/30/19 08/31/19 19:00 07:00 Intake Total 345 ml 400 ml Output Total 2000 ml Balance -1655 ml 400 ml Intake Free Water 100 ml 50 ml Tube Feeding 245 ml 350 ml Hemodialysis UF 2000 ml # Bowel Movements 5 Labs Test 08/29/19 03:30 08/29/19 03:50 08/29/19 08:15 08/30/19 16:41 Thyroid Stimulating Hormone (TSH) 8.357 uiU/mL (0.358-3.740) Free Thyroxine 1.23 NG/DL (0.76-1.46) White Blood Count 6.8 K/UL (4.8-10.8) Red Blood Count 3.14 M/UL (4.20-5.40) Hemoglobin 9.5 G/DL (12.0-16.0) Hematocrit 28.2 % (37.0-47.0) Mean Corpuscular Volume 90 FL (80-99) Mean Corpuscular Hemoglobin 30.2 PG (27.0-31.0) Mean Corpuscular Hemoglobin Concent 33.6 G/DL (32.0-36.0) Red Cell Distribution Width 16.4 % (11.6-14.8) Platelet Count 591 K/UL (150-450) Mean Platelet Volume 6.0 FL (6.5-10.1) Neutrophils (%) (Auto) 55.9 % (45.0-75.0) Lymphocytes (%) (Auto) 34.5 % (20.0-45.0) Monocytes (%) (Auto) 6.8 % (1.0-10.0) Eosinophils (%) (Auto) 1.3 % (0.0-3.0) Basophils (%) (Auto) 1.5 % (0.0-2.0) Sodium Level 139 MMOL/L (136-145) Potassium Level 3.7 MMOL/L (3.5-5.1) Chloride Level 102 MMOL/L (98-107) Carbon Dioxide Level 25 MMOL/L (21-32) Anion Gap 12 mmol/L (5-15) Blood Urea Nitrogen 35 mg/dL (7-18) Creatinine 3.2 MG/DL (0.55-1.30) Estimat Glomerular Filtration Rate 13.9 mL/min (>60) Glucose Level 144 MG/DL (74-106) Calcium Level 8.4 MG/DL (8.5-10.1) Phosphorus Level 3.3 MG/DL (2.5-4.9) Magnesium Level 2.3 MG/DL (1.8-2.4) Total Bilirubin 0.3 MG/DL (0.2-1.0) Aspartate Amino Transf (AST/SGOT) 24 U/L (15-37) Alanine Aminotransferase (ALT/SGPT) 15 U/L (12-78) Alkaline Phosphatase 167 U/L (46-116) C-Reactive Protein, Quantitative 5.4 mg/dL (0.00-0.90) Pro-B-Type Natriuretic Peptide > 45068 pg/mL (0-125) Total Protein 5.9 G/DL (6.4-8.2) Albumin 1.7 G/DL (3.4-5.0) Globulin 4.2 g/dL Albumin/Globulin Ratio 0.4 (1.0-2.7) Prothrombin Time 10.7 SEC (9.30-11.50) Prothromb Time International Ratio 1.0 (0.9-1.1) Activated Partial Thromboplast Time 29 SEC (23-33) Arterial Blood pH 7.553 (7.350-7.450) Arterial Blood Partial Pressure CO2 35.7 mmHg (35.0-45.0) Arterial Blood Partial Pressure O2 111.7 mmHg (75.0-100.0) Arterial Blood HCO3 30.7 mmol/L (22.0-26.0) Arterial Blood Oxygen Saturation 97.5 % (95-100) Arterial Blood Base Excess 7.7 (-2-2) Cuauhtemoc Test Positive Test 08/31/19 03:40 Sodium Level 148 MMOL/L (136-145) Potassium Level 3.5 MMOL/L (3.5-5.1) Chloride Level 108 MMOL/L (98-107) Carbon Dioxide Level 30 MMOL/L (21-32) Anion Gap 10 mmol/L (5-15) Blood Urea Nitrogen 29 mg/dL (7-18) Creatinine 2.3 MG/DL (0.55-1.30) Estimat Glomerular Filtration Rate 20.5 mL/min (>60) Glucose Level 138 MG/DL (74-106) Uric Acid 4.1 MG/DL (2.6-7.2) Calcium Level 8.7 MG/DL (8.5-10.1) Phosphorus Level 3.0 MG/DL (2.5-4.9) Magnesium Level 2.2 MG/DL (1.8-2.4) Total Bilirubin 0.3 MG/DL (0.2-1.0) Aspartate Amino Transf (AST/SGOT) 531 U/L (15-37) Alanine Aminotransferase (ALT/SGPT) 137 U/L (12-78) Alkaline Phosphatase 120 U/L (46-116) C-Reactive Protein, Quantitative 7.7 mg/dL (0.00-0.90) Pro-B-Type Natriuretic Peptide > 60496 pg/mL (0-125) Total Protein 5.4 G/DL (6.4-8.2) Albumin 2.4 G/DL (3.4-5.0) Globulin 3.0 g/dL Albumin/Globulin Ratio 0.8 (1.0-2.7) Height (Feet): 5 Height (Inches): 4.00 Weight (Pounds): 114 Objective gen: nad pulm: on trach+ / vent cv: rrr, no gmr abd: sfot, nt, nd ++ gt ext: no cce Gio Rob MD Aug 31, 2019 06:51
[2019-08-31] MEDS ORDERED: NS 275ml ONE (09:35)
--- NOTE | 2019-08-31 10:53 | Infectious Diseases Prog Note ---
Assessment/Plan Assessment/Plan antibiotics : none A 1. jarad albicans fungemia s/p rx 2. right shoulder septic arthritis with staph aureus s/p rx 3. renal failure 4. thrombocytopenia resolved 7. diabetes mellitus 8. hypertension 9. respiratory failure P 1. observe off antibiotics Subjective ROS Limited/Unobtainable: Yes Allergies: Coded Allergies: VANCOMYCIN (Unverified Allergy, Unknown, 08/02/19) Objective Vital Signs Last 24 Hour Vital Signs Date Time Temp Pulse Resp B/P (MAP) Pulse Ox O2 Delivery O2 Flow Rate FiO2 08/31/19 10:43 76 146/56 08/31/19 09:53 98 08/31/19 09:00 69 22 134/45 (74) 100 08/31/19 09:00 69 18 45 08/31/19 08:00 68 08/31/19 08:00 98.8 74 18 133/52 (79) 99 08/31/19 07:54 45 08/31/19 07:00 70 18 143/57 (85) 100 70 08/31/19 06:55 70 18 45 08/31/19 06:28 69 18 08/31/19 06:00 68 18 135/56 (82) 100 68 08/31/19 05:38 144/55 08/31/19 05:10 66 18 45 08/31/19 05:00 65 21 134/51 (78) 65 08/31/19 04:00 67 08/31/19 04:00 Mechanical Ventilator Mechanical Ventilator Mechanical Ventilator Mechanical Ventilator 08/31/19 04:00 45 08/31/19 04:00 98.0 66 18 136/56 (82) 66 08/31/19 03:06 66 18 45 08/31/19 03:00 67 18 126/51 (76) 67 08/31/19 02:00 66 18 127/58 (81) 66 08/31/19 01:09 66 18 45 08/31/19 01:00 69 20 127/62 (83) 69 08/31/19 00:00 97.8 70 19 116/49 (71) 99 70 08/31/19 00:00 45 08/31/19 00:00 116/49 08/31/19 00:00 Mechanical Ventilator Mechanical Ventilator Mechanical Ventilator Mechanical Ventilator 08/31/19 00:00 74 08/30/19 22:41 68 18 45 08/30/19 22:00 66 18 99/46 (63) 100 66 08/30/19 21:13 68 18 45 08/30/19 21:00 68 18 93/46 (62) 100 68 08/30/19 20:00 77 08/30/19 20:00 97.5 77 20 104/48 (66) 62 77 08/30/19 20:00 40 08/30/19 20:00 Mechanical Ventilator Mechanical Ventilator Mechanical Ventilator Mechanical Ventilator 08/30/19 19:16 90 24 60 08/30/19 19:00 102 25 77/47 (57) 95 102 08/30/19 18:00 95 23 92/58 (69) 98 95 08/30/19 18:00 95 92/58 08/30/19 18:00 92/58 08/30/19 17:15 97.7 78 21 93/55 (68) 100 78 08/30/19 17:06 75 18 40 08/30/19 17:00 83 20 93/55 (68) 94 83 08/30/19 16:43 98 08/30/19 16:30 75 22 40 40 08/30/19 16:00 Mechanical Ventilator Mechanical Ventilator Mechanical Ventilator Mechanical Ventilator 08/30/19 16:00 78 08/30/19 16:00 40 08/30/19 16:00 86 27 100/58 (72) 92 86 08/30/19 15:26 75 18 40 08/30/19 15:00 75 22 97/51 (66) 100 75 08/30/19 14:00 99 30 131/72 (91) 100 99 08/30/19 13:00 97.8 77 22 136/113 (121) 100 77 08/30/19 12:37 73 18 40 08/30/19 12:00 Mechanical Ventilator Mechanical Ventilator Mechanical Ventilator Mechanical Ventilator 08/30/19 12:00 74 25 130/69 (89) 93 74 08/30/19 12:00 40 08/30/19 11:46 79 08/30/19 11:03 99 08/30/19 11:00 116 30 159/97 (117) 100 116 08/30/19 10:59 117 30 40 Height (Feet): 5 Height (Inches): 4.00 Weight (Pounds): 114 HEENT: other - intubated Respiratory/Chest: lungs clear Cardiovascular: normal rate, regular rhythm, no gallop/murmur Abdomen: soft, non tender, other - GT Extremities: no edema, other - right groin catheter Laboratory Tests Test 08/30/19 16:41 08/31/19 03:40 Arterial Blood pH 7.553 (7.350-7.450) Arterial Blood Partial Pressure CO2 35.7 mmHg (35.0-45.0) Arterial Blood Partial Pressure O2 111.7 mmHg (75.0-100.0) H Arterial Blood HCO3 30.7 mmol/L (22.0-26.0) H Arterial Blood Oxygen Saturation 97.5 % (95-100) Arterial Blood Base Excess 7.7 (-2-2) H Cuauhtemoc Test Positive Sodium Level 148 MMOL/L (136-145) H Potassium Level 3.5 MMOL/L (3.5-5.1) Chloride Level 108 MMOL/L (98-107) H Carbon Dioxide Level 30 MMOL/L (21-32) Anion Gap 10 mmol/L (5-15) Blood Urea Nitrogen 29 mg/dL (7-18) H Creatinine 2.3 MG/DL (0.55-1.30) H Estimat Glomerular Filtration Rate 20.5 mL/min (>60) Glucose Level 138 MG/DL (74-106) H Uric Acid 4.1 MG/DL (2.6-7.2) Calcium Level 8.7 MG/DL (8.5-10.1) Phosphorus Level 3.0 MG/DL (2.5-4.9) Magnesium Level 2.2 MG/DL (1.8-2.4) Total Bilirubin 0.3 MG/DL (0.2-1.0) Aspartate Amino Transf (AST/SGOT) 531 U/L (15-37) H Alanine Aminotransferase (ALT/SGPT) 137 U/L (12-78) H Alkaline Phosphatase 120 U/L (46-116) H C-Reactive Protein, Quantitative 7.7 mg/dL (0.00-0.90) H Pro-B-Type Natriuretic Peptide > 11787 pg/mL (0-125) H Total Protein 5.4 G/DL (6.4-8.2) L Albumin 2.4 G/DL (3.4-5.0) L Globulin 3.0 g/dL Albumin/Globulin Ratio 0.8 (1.0-2.7) L Current Medications Medications (Trade) Dose Ordered Sig/Javier Route PRN Reason Start Time Stop Time Status Last Admin Dose Admin Amlodipine Besylate (Norvasc) 5 mg BID NG 08/23/19 01:45 09/22/19 01:44 08/31/19 10:43 Atropine Sulfate (Atropine) 1 mg Q4H PRN IVP Per rx protocol 08/13/19 08:30 09/12/19 08:29 Chlorhexidine Gluconate (Nae-Hex 2%) 1 applic DAILY@1999 TOPIC 08/15/19 20:00 09/14/19 19:59 08/30/19 20:42 Dextrose (Dextrose 50%) 50 ml Q30M PRN IV Hypoglycemia 08/11/19 10:30 09/04/19 17:44 08/22/19 15:46 Diphenhydramine HCl (Benadryl) 50 mg Q4H PRN IVP Itching 08/09/19 14:30 09/08/19 14:29 08/13/19 02:39 Epoetin Thomas (Epoetin Thomas(ESRD on dialysis)) 4,000 unit THU-THU-THU SUBQ 08/12/19 21:00 09/11/19 20:59 08/29/19 21:03 Hydralazine HCl (Apresoline) 10 mg Q4H PRN IV For High Blood Pressure 08/18/19 12:44 09/17/19 12:43 08/22/19 09:22 Hydralazine HCl (Apresoline) 25 mg Q6HR NG 08/23/19 06:00 09/22/19 05:59 08/31/19 05:38 Lansoprazole (Prevacid) 30 mg BID GT 08/19/19 09:00 09/18/19 08:59 08/31/19 10:43 Levothyroxine Sodium (Synthroid) 50 mcg DAILY@0630 ORAL 08/25/19 06:30 09/24/19 06:29 08/31/19 05:39 Metoclopramide HCl (Reglan) 5 mg Q8H PRN IVP Nausea & Vomiting 08/09/19 12:39 09/08/19 12:38 Melissa Solares MD Aug 31, 2019 10:52
--- NOTE | 2019-08-31 12:53 | Surgery Progress Note ---
Surgery Progress Note Subjective Procedure Performed Right Femoral Temporary Hemodialysis catheter Insertion Additional Comments no acute events comfortable appearing on vent support still unable to wean discussed with medical teams trach vs terminal extubation but for now cont withweaning as she making some progress Objective Last 24 Hour Vital Signs Date Time Temp Pulse Resp B/P (MAP) Pulse Ox O2 Delivery O2 Flow Rate FiO2 08/31/19 12:00 79 19 143/44 (77) 100 08/31/19 12:00 73 08/31/19 12:00 45 08/31/19 12:00 Mechanical Ventilator Mechanical Ventilator Mechanical Ventilator Mechanical Ventilator 08/31/19 11:00 83 18 134/59 (84) 100 08/31/19 10:43 76 146/56 08/31/19 10:42 74 16 45 08/31/19 10:00 77 18 144/51 (82) 100 08/31/19 09:53 98 08/31/19 09:00 69 22 134/45 (74) 100 08/31/19 09:00 69 18 45 08/31/19 08:00 68 08/31/19 08:00 Mechanical Ventilator Mechanical Ventilator Mechanical Ventilator Mechanical Ventilator 08/31/19 08:00 98.8 74 18 133/52 (79) 99 08/31/19 07:54 45 08/31/19 07:00 70 18 143/57 (85) 100 70 08/31/19 06:55 70 18 45 08/31/19 06:28 69 18 08/31/19 06:00 68 18 135/56 (82) 100 68 08/31/19 05:38 144/55 08/31/19 05:10 66 18 45 08/31/19 05:00 65 21 134/51 (78) 65 08/31/19 04:00 67 08/31/19 04:00 Mechanical Ventilator Mechanical Ventilator Mechanical Ventilator Mechanical Ventilator 08/31/19 04:00 45 08/31/19 04:00 98.0 66 18 136/56 (82) 66 08/31/19 03:06 66 18 45 08/31/19 03:00 67 18 126/51 (76) 67 08/31/19 02:00 66 18 127/58 (81) 66 08/31/19 01:09 66 18 45 08/31/19 01:00 69 20 127/62 (83) 69 08/31/19 00:00 97.8 70 19 116/49 (71) 99 70 08/31/19 00:00 45 08/31/19 00:00 116/49 08/31/19 00:00 Mechanical Ventilator Mechanical Ventilator Mechanical Ventilator Mechanical Ventilator 08/31/19 00:00 74 08/30/19 22:41 68 18 45 08/30/19 22:00 66 18 99/46 (63) 100 66 08/30/19 21:13 68 18 45 08/30/19 21:00 68 18 93/46 (62) 100 68 08/30/19 20:00 77 08/30/19 20:00 97.5 77 20 104/48 (66) 62 77 08/30/19 20:00 40 08/30/19 20:00 Mechanical Ventilator Mechanical Ventilator Mechanical Ventilator Mechanical Ventilator 08/30/19 19:16 90 24 60 08/30/19 19:00 102 25 77/47 (57) 95 102 08/30/19 18:00 95 23 92/58 (69) 98 95 08/30/19 18:00 95 92/58 08/30/19 18:00 92/58 08/30/19 17:15 97.7 78 21 93/55 (68) 100 78 08/30/19 17:06 75 18 40 08/30/19 17:00 83 20 93/55 (68) 94 83 08/30/19 16:43 98 08/30/19 16:30 75 22 40 40 08/30/19 16:00 Mechanical Ventilator Mechanical Ventilator Mechanical Ventilator Mechanical Ventilator 08/30/19 16:00 78 08/30/19 16:00 40 08/30/19 16:00 86 27 100/58 (72) 92 86 08/30/19 15:26 75 18 40 08/30/19 15:00 75 22 97/51 (66) 100 75 08/30/19 14:00 99 30 131/72 (91) 100 99 08/30/19 13:00 97.8 77 22 136/113 (121) 100 77 I&O Intake and Output 08/30/19 08/31/19 19:00 07:00 Intake Total 345 ml 435 ml Output Total 2000 ml Balance -1655 ml 435 ml Intake Free Water 100 ml 50 ml Tube Feeding 245 ml 385 ml Hemodialysis UF 2000 ml # Bowel Movements 5 Dressing: dry Wound: clean Cardiovascular: RSR Respiratory: clear, decreased breath sounds Abdomen: soft, non-tender, present bowel sounds, non-distended Extremities: no edema, no tenderness, no cyanosis Laboratory Tests Test 08/30/19 16:41 08/31/19 03:40 Arterial Blood pH 7.553 (7.350-7.450) Arterial Blood Partial Pressure CO2 35.7 mmHg (35.0-45.0) Arterial Blood Partial Pressure O2 111.7 mmHg (75.0-100.0) H Arterial Blood HCO3 30.7 mmol/L (22.0-26.0) H Arterial Blood Oxygen Saturation 97.5 % (95-100) Arterial Blood Base Excess 7.7 (-2-2) H Cuauhtemoc Test Positive Sodium Level 148 MMOL/L (136-145) H Potassium Level 3.5 MMOL/L (3.5-5.1) Chloride Level 108 MMOL/L (98-107) H Carbon Dioxide Level 30 MMOL/L (21-32) Anion Gap 10 mmol/L (5-15) Blood Urea Nitrogen 29 mg/dL (7-18) H Creatinine 2.3 MG/DL (0.55-1.30) H Estimat Glomerular Filtration Rate 20.5 mL/min (>60) Glucose Level 138 MG/DL (74-106) H Uric Acid 4.1 MG/DL (2.6-7.2) Calcium Level 8.7 MG/DL (8.5-10.1) Phosphorus Level 3.0 MG/DL (2.5-4.9) Magnesium Level 2.2 MG/DL (1.8-2.4) Total Bilirubin 0.3 MG/DL (0.2-1.0) Aspartate Amino Transf (AST/SGOT) 531 U/L (15-37) H Alanine Aminotransferase (ALT/SGPT) 137 U/L (12-78) H Alkaline Phosphatase 120 U/L (46-116) H C-Reactive Protein, Quantitative 7.7 mg/dL (0.00-0.90) H Pro-B-Type Natriuretic Peptide > 39878 pg/mL (0-125) H Total Protein 5.4 G/DL (6.4-8.2) L Albumin 2.4 G/DL (3.4-5.0) L Globulin 3.0 g/dL Albumin/Globulin Ratio 0.8 (1.0-2.7) L Assessment Post-op Diagnosis same Plan Problems: (1) Malnutrition Assessment & Plan: DAILY ESTIMATED NEEDS: Needs based on ESRD+ HD, underweight, wound/ 39.5kg 35-40 kcals/kg 8867-6203 total kcals 1.25-1.8 g protein/kg 49-71 g total protein 20-22 mL/kg 790-869 total fluid mLs NUTRITION DIAGNOSIS: * Increased kcal and protein needs r/t underweight status, HD needs, wuond healing as evidenced by pt is underweight per guidelines, ESRD, on HD, admitted non-blanching erythema wounds @ BL heels and sacrum * Swallowing difficulty R/T dysphagia as evidenced by [employer] recommends temporary nonoral feeding at this time, s/p NGT insertion, on NGT feeding-> now s/p self removal, NPO. CURRENT TF:NPO PO DIET RECOMMENDATIONS: WHEN SAFE FOR ORAL DIET -> renal/ texture per [employer]SEM[employer]ER ENTERAL NUTRITION RECOMMENDATIONS: W/ GI access: Nepro @ 35ml/hr x 22 hrs to provide 770ml, 1386kcal, 62g prot, 560ml free water * W/ GI access, resume TF on Nepro * Initiate Nepro @ 15ml/hr x 6 hrs, advance 10ml q 4-6 hrs as tolerated to goal rate. * Hold 1 hour before and after Synthroid med * HOB over 30 degrees/ water flush per MD. ADDITIONAL RECOMMENDATIONS: 1) Calibrated bed scale wt for accurate CBW -> daily wt monitoring Per HD record: dry wt on 07/30=39.5kg (87lbs) 2) Wound care: (W/ GI access) add Nephorivte x 1 + Balta BID 3) Monitor NPO status: without GI access at this time, s/p pulling out NGT 4) Monitor for hypoglycemia while NPO 5) Monitor for continuity of HD (2) Septic arthritis Assessment & Plan: Pt presented on admission with generalized scaly rash . pt noted to be restless and scratching at skin. Bleeding from oral mucosa noted. Joint deformity noted to R shoulder. Surgical incision approximated with 11 sutures. Erythema but no exudate,or elevation in skin temp at site of incision. Historical incision R hip that is tunneled.Small amt seropurulent exudate noted. Periwound is erythematous,but no elevation in skin temp noted. No odor noted. Non-blanching erythema noted to sacrum. Perianal area is erythematous and excoriated. L heel is boggy with non-blanching erythema. R heel is soft with non-blanching erythema. No evidence of skin breakdown to all other bony prominences. Tx.plan: Cover R shoulder with Drsg and change daily and prn. Cleanse R hip wound with Saline. Apply Therahoney.Apply Cavilon Skin Barrier periwound. Cover with Optifoam drsg. Change every 3 days and prn. Apply Moisture Barrier Paste to perianal area and buttocks. Cover Sacrum with Optifoam drsg. Change every 3 days and prn. Apply Cavilon Skin Barrier to both heels. Cover each heel with Optifoam drsg. Change every 7 days and prn. APM/ELVIA Mattress overlay. Reposition at least every 2hours or as tolerated. Off-load heels with pillow. HD cath necessary HD as renal likely will need intubation (3) Wound, open, hip or thigh with complication Assessment & Plan: slow healing will need nutritional optimization difficult ng tube peg when stable sutures removed from right shoulder comfortable wean vent may need trach (4) Abscess of right hip (5) possible septic arthritis (6) Renal failure (ARF), acute on chronic Assessment & Plan: cont HD will need tunneled cath placement okay to use fem line for now but will need change soon. line monitored and clean dressings going well (7) Pneumonia Assessment & Plan: intubated on vent support not tolerating weaning may need trach Camilo James Aug 31, 2019 12:53
--- NOTE | 2019-08-31 13:04 | Nephrology Progress Note ---
Assessment/Plan Problem List: (1) ESRD (end stage renal disease) on dialysis (2) Malnutrition (3) Anemia in CKD (chronic kidney disease) (4) Hypotension (5) Thrombocytopenia (6) Sepsis Assessment: klebsiella in blood Assessment -Early sepsis with shock. -Healthcare-associated pneumonia. -Severe protein-calorie malnutrition. -Thrombocytopenia. - End-stage renal disease. - History of hypertension. - Bradycardia. - HypoThyroid Plan Remains full code Continue monitor renal parameters Last dialysis August 29 K supplement as needed Due to her overall medical condition I favor DNR and comfort care Blood pressure fluctuating, will start hydralazine via NG tube for blood pressure Magnesium and potassium supplement intravenously as needed Patient underwent PEG placement August 16 patient remains intubated on ventilator Discussed with RN Aim to wean from ventilator or consider tracheostomy Permacath was removed on August 12 Dialysis 08/11 Transfusion as needed Patient had hematemesis meds IV as possible Surveillance blood cultures tomorrow Plan to put the permacath back in on Thursday if cultures are negative keep BP and BS in check Inflammatory markers per orders Objective Objective Last 24 Hour Vital Signs Date Time Temp Pulse Resp B/P (MAP) Pulse Ox O2 Delivery O2 Flow Rate FiO2 08/31/19 12:00 79 19 143/44 (77) 100 08/31/19 12:00 73 08/31/19 12:00 45 08/31/19 12:00 Mechanical Ventilator Mechanical Ventilator Mechanical Ventilator Mechanical Ventilator 08/31/19 11:00 83 18 134/59 (84) 100 08/31/19 10:43 76 146/56 08/31/19 10:42 74 16 45 08/31/19 10:00 77 18 144/51 (82) 100 08/31/19 09:53 98 08/31/19 09:00 69 22 134/45 (74) 100 08/31/19 09:00 69 18 45 08/31/19 08:00 68 08/31/19 08:00 Mechanical Ventilator Mechanical Ventilator Mechanical Ventilator Mechanical Ventilator 08/31/19 08:00 98.8 74 18 133/52 (79) 99 08/31/19 07:54 45 08/31/19 07:00 70 18 143/57 (85) 100 70 08/31/19 06:55 70 18 45 08/31/19 06:28 69 18 08/31/19 06:00 68 18 135/56 (82) 100 68 08/31/19 05:38 144/55 08/31/19 05:10 66 18 45 08/31/19 05:00 65 21 134/51 (78) 65 08/31/19 04:00 67 08/31/19 04:00 Mechanical Ventilator Mechanical Ventilator Mechanical Ventilator Mechanical Ventilator 08/31/19 04:00 45 08/31/19 04:00 98.0 66 18 136/56 (82) 66 08/31/19 03:06 66 18 45 08/31/19 03:00 67 18 126/51 (76) 67 08/31/19 02:00 66 18 127/58 (81) 66 08/31/19 01:09 66 18 45 08/31/19 01:00 69 20 127/62 (83) 69 08/31/19 00:00 97.8 70 19 116/49 (71) 99 70 08/31/19 00:00 45 08/31/19 00:00 116/49 08/31/19 00:00 Mechanical Ventilator Mechanical Ventilator Mechanical Ventilator Mechanical Ventilator 08/31/19 00:00 74 08/30/19 22:41 68 18 45 08/30/19 22:00 66 18 99/46 (63) 100 66 08/30/19 21:13 68 18 45 08/30/19 21:00 68 18 93/46 (62) 100 68 08/30/19 20:00 77 08/30/19 20:00 97.5 77 20 104/48 (66) 62 77 08/30/19 20:00 40 08/30/19 20:00 Mechanical Ventilator Mechanical Ventilator Mechanical Ventilator Mechanical Ventilator 08/30/19 19:16 90 24 60 08/30/19 19:00 102 25 77/47 (57) 95 102 08/30/19 18:00 95 23 92/58 (69) 98 95 08/30/19 18:00 95 92/58 08/30/19 18:00 92/58 08/30/19 17:15 97.7 78 21 93/55 (68) 100 78 08/30/19 17:06 75 18 40 08/30/19 17:00 83 20 93/55 (68) 94 83 08/30/19 16:43 98 08/30/19 16:30 75 22 40 40 08/30/19 16:00 Mechanical Ventilator Mechanical Ventilator Mechanical Ventilator Mechanical Ventilator 08/30/19 16:00 78 08/30/19 16:00 40 08/30/19 16:00 86 27 100/58 (72) 92 86 08/30/19 15:26 75 18 40 08/30/19 15:00 75 22 97/51 (66) 100 75 08/30/19 14:00 99 30 131/72 (91) 100 99 Intake and Output 08/30/19 08/31/19 19:00 07:00 Intake Total 345 ml 435 ml Output Total 2000 ml Balance -1655 ml 435 ml Intake Free Water 100 ml 50 ml Tube Feeding 245 ml 385 ml Hemodialysis UF 2000 ml # Bowel Movements 5 Laboratory Tests 08/30/19 16:41: Arterial Blood pH 7.553*H, Arterial Blood Partial Pressure CO2 35.7, Arterial Blood Partial Pressure O2 111.7H, Arterial Blood HCO3 30.7H, Arterial Blood Oxygen Saturation 97.5, Arterial Blood Base Excess 7.7H, Cuauhtemoc Test Positive 08/31/19 03:40: Sodium Level 148H, Potassium Level 3.5, Chloride Level 108H, Carbon Dioxide Level 30, Anion Gap 10, Blood Urea Nitrogen 29H, Creatinine 2.3H, Estimat Glomerular Filtration Rate 20.5, Glucose Level 138H, Uric Acid 4.1, Calcium Level 8.7, Phosphorus Level 3.0, Magnesium Level 2.2, Total Bilirubin 0.3, Aspartate Amino Transf (AST/SGOT) 531H, Alanine Aminotransferase (ALT/SGPT) 137H , Alkaline Phosphatase 120H, C-Reactive Protein, Quantitative 7.7H, Pro-B-Type Natriuretic Peptide > 33068P, Total Protein 5.4L, Albumin 2.4L, Globulin 3.0, Albumin/Globulin Ratio 0.8L Height (Feet): 5 Height (Inches): 4.00 Weight (Pounds): 114 Objective no change William Blackwood MD Aug 31, 2019 13:04
--- NOTE | 2019-08-31 16:41 | Pulmonolgy Critical Care Note ---
Critical Care - Asmt/Plan Assessment/Plan: Pulmonary CCM Progress Note Assessment/Plan respiratory failure hemoptysis resolved hypoxemia chronic renal failure toxic met encephalopathy severe protein calorie malnutrition cachexia left lung whiteout/collapse, improved with intubation previously - persistent s/p intubation anemia pulmonary edema with elevated BNP + pleural effusion, sp thoracenetsis PLAN thoracentesis completed; monitor imaging add CPT HHN Mucomyst - may need Bronchoscopy if within goals of care care noted and reviewed discussed with staff and primary failed weaning past few days- 3rd spacing noted d/w family as to trach vs terminal care; per Dr. Beltran keep negative and monitor osmotic pressures ID and other specialist reviewed close follow up discussed elevated head and monitor ROM watch fluid status nutrition as able isolation as needed off load as able and monitor skin exam ROM as able critical at present requires ICU management and close follow up care feeds as able and monitor residuals medications/laboratory data/nursing notes/ICU care reviewed in detail note reviewed and edited care discussed with RN and RT ICU time spent >40 minutes coordinating care Critical Care - Subjective Interval Events: care noted ICU care reviewed meds noted ROS Limited/Unobtainable: Yes Condition: critical EKG Rhythm: Sinus Rhythm Residuals: minimal Tube Feeding Tolerated: yes Critical Care - Objective CXR: reviewed changes ET-Tube: 7.0 ET Position: 21 Vital signs noted Labs Test 08/28/19 05:10 08/29/19 03:30 08/29/19 03:50 08/29/19 08:15 White Blood Count 4.4 K/UL (4.8-10.8) 6.8 K/UL (4.8-10.8) Red Blood Count 3.44 M/UL (4.20-5.40) 3.14 M/UL (4.20-5.40) Hemoglobin 10.4 G/DL (12.0-16.0) 9.5 G/DL (12.0-16.0) Hematocrit 31.3 % (37.0-47.0) 28.2 % (37.0-47.0) Mean Corpuscular Volume 91 FL (80-99) 90 FL (80-99) Mean Corpuscular Hemoglobin 30.1 PG (27.0-31.0) 30.2 PG (27.0-31.0) Mean Corpuscular Hemoglobin Concent 33.1 G/DL (32.0-36.0) 33.6 G/DL (32.0-36.0) Red Cell Distribution Width 16.3 % (11.6-14.8) 16.4 % (11.6-14.8) Platelet Count 530 K/UL (150-450) 591 K/UL (150-450) Mean Platelet Volume 5.7 FL (6.5-10.1) 6.0 FL (6.5-10.1) Neutrophils (%) (Auto) 48.5 % (45.0-75.0) 55.9 % (45.0-75.0) Lymphocytes (%) (Auto) 40.5 % (20.0-45.0) 34.5 % (20.0-45.0) Monocytes (%) (Auto) 7.9 % (1.0-10.0) 6.8 % (1.0-10.0) Eosinophils (%) (Auto) 1.6 % (0.0-3.0) 1.3 % (0.0-3.0) Basophils (%) (Auto) 1.6 % (0.0-2.0) 1.5 % (0.0-2.0) Sodium Level 141 MMOL/L (136-145) 139 MMOL/L (136-145) Potassium Level 3.2 MMOL/L (3.5-5.1) 3.7 MMOL/L (3.5-5.1) Chloride Level 103 MMOL/L (98-107) 102 MMOL/L (98-107) Carbon Dioxide Level 30 MMOL/L (21-32) 25 MMOL/L (21-32) Anion Gap 8 mmol/L (5-15) 12 mmol/L (5-15) Blood Urea Nitrogen 36 mg/dL (7-18) 35 mg/dL (7-18) Creatinine 2.9 MG/DL (0.55-1.30) 3.2 MG/DL (0.55-1.30) Estimat Glomerular Filtration Rate 15.7 mL/min (>60) 13.9 mL/min (>60) Glucose Level 76 MG/DL (74-106) 144 MG/DL (74-106) Calcium Level 8.9 MG/DL (8.5-10.1) 8.4 MG/DL (8.5-10.1) Phosphorus Level 3.5 MG/DL (2.5-4.9) 3.3 MG/DL (2.5-4.9) Magnesium Level 2.3 MG/DL (1.8-2.4) 2.3 MG/DL (1.8-2.4) Total Bilirubin 0.5 MG/DL (0.2-1.0) 0.3 MG/DL (0.2-1.0) Aspartate Amino Transf (AST/SGOT) 28 U/L (15-37) 24 U/L (15-37) Alanine Aminotransferase (ALT/SGPT) < 6 U/L (12-78) 15 U/L (12-78) Alkaline Phosphatase 113 U/L (46-116) 167 U/L (46-116) C-Reactive Protein, Quantitative 6.3 mg/dL (0.00-0.90) 5.4 mg/dL (0.00-0.90) Pro-B-Type Natriuretic Peptide > 82982 pg/mL (0-125) > 07417 pg/mL (0-125) Total Protein 6.2 G/DL (6.4-8.2) 5.9 G/DL (6.4-8.2) Albumin 1.9 G/DL (3.4-5.0) 1.7 G/DL (3.4-5.0) Globulin 4.3 g/dL 4.2 g/dL Albumin/Globulin Ratio 0.4 (1.0-2.7) 0.4 (1.0-2.7) Thyroid Stimulating Hormone (TSH) 8.357 uiU/mL (0.358-3.740) Free Thyroxine 1.23 NG/DL (0.76-1.46) Prothrombin Time 10.7 SEC (9.30-11.50) Prothromb Time International Ratio 1.0 (0.9-1.1) Activated Partial Thromboplast Time 29 SEC (23-33) Test 08/30/19 16:41 Arterial Blood pH 7.553 (7.350-7.450) Arterial Blood Partial Pressure CO2 35.7 mmHg (35.0-45.0) Arterial Blood Partial Pressure O2 111.7 mmHg (75.0-100.0) Arterial Blood HCO3 30.7 mmol/L (22.0-26.0) Arterial Blood Oxygen Saturation 97.5 % (95-100) Arterial Blood Base Excess 7.7 (-2-2) Cuauhtemoc Test Positive Objective: WDWN NAD intubated reduced breath sounds bilaterally with some rhonchi [id number] without MRG NABS nontender no HSM no CCE contractures feeding tube in place no distention poorly responsive nonfocal cachectic reviewed and edited Critical Care - Objective Last 24 Hour Vital Signs Date Time Temp Pulse Resp B/P (MAP) Pulse Ox O2 Delivery O2 Flow Rate FiO2 08/31/19 15:28 78 18 45 08/31/19 15:00 81 18 115/62 (79) 99 08/31/19 14:00 85 20 149/58 (88) 98 08/31/19 13:52 154/81 08/31/19 13:00 99.2 79 18 140/51 (80) 100 08/31/19 12:53 91 21 45 08/31/19 12:00 79 19 143/44 (77) 100 08/31/19 12:00 73 08/31/19 12:00 45 08/31/19 12:00 Mechanical Ventilator Mechanical Ventilator Mechanical Ventilator Mechanical Ventilator 08/31/19 11:00 83 18 134/59 (84) 100 08/31/19 10:43 76 146/56 08/31/19 10:42 74 16 45 08/31/19 10:00 77 18 144/51 (82) 100 08/31/19 09:53 98 08/31/19 09:00 69 22 134/45 (74) 100 08/31/19 09:00 69 18 45 08/31/19 08:00 68 08/31/19 08:00 Mechanical Ventilator Mechanical Ventilator Mechanical Ventilator Mechanical Ventilator 08/31/19 08:00 98.8 74 18 133/52 (79) 99 08/31/19 07:54 45 08/31/19 07:00 70 18 143/57 (85) 100 70 08/31/19 06:55 70 18 45 08/31/19 06:28 69 18 08/31/19 06:00 68 18 135/56 (82) 100 68 08/31/19 05:38 144/55 08/31/19 05:10 66 18 45 08/31/19 05:00 65 21 134/51 (78) 65 08/31/19 04:00 67 08/31/19 04:00 Mechanical Ventilator Mechanical Ventilator Mechanical Ventilator Mechanical Ventilator 08/31/19 04:00 45 08/31/19 04:00 98.0 66 18 136/56 (82) 66 08/31/19 03:06 66 18 45 08/31/19 03:00 67 18 126/51 (76) 67 08/31/19 02:00 66 18 127/58 (81) 66 08/31/19 01:09 66 18 45 08/31/19 01:00 69 20 127/62 (83) 69 08/31/19 00:00 97.8 70 19 116/49 (71) 99 70 08/31/19 00:00 45 08/31/19 00:00 116/49 08/31/19 00:00 Mechanical Ventilator Mechanical Ventilator Mechanical Ventilator Mechanical Ventilator 08/31/19 00:00 74 08/30/19 22:41 68 18 45 08/30/19 22:00 66 18 99/46 (63) 100 66 08/30/19 21:13 68 18 45 08/30/19 21:00 68 18 93/46 (62) 100 68 08/30/19 20:00 77 08/30/19 20:00 97.5 77 20 104/48 (66) 62 77 08/30/19 20:00 40 08/30/19 20:00 Mechanical Ventilator Mechanical Ventilator Mechanical Ventilator Mechanical Ventilator 08/30/19 19:16 90 24 60 08/30/19 19:00 102 25 77/47 (57) 95 102 08/30/19 18:00 95 23 92/58 (69) 98 95 08/30/19 18:00 95 92/58 08/30/19 18:00 92/58 08/30/19 17:15 97.7 78 21 93/55 (68) 100 78 08/30/19 17:06 75 18 40 08/30/19 17:00 83 20 93/55 (68) 94 83 08/30/19 16:43 98 Accucheck: 86 Critical Care - Subjective ROS Limited/Unobtainable: No FI02: 45 Vent Support Breath Rate: 18 Vent Support Mode: AC Sputum Amount: Small PEEP: 5.0 PIP: 20 Tube Feeding Amount: 35 I&O: Intake and Output 08/30/19 08/31/19 19:00 07:00 Intake Total 345 ml 435 ml Output Total 2000 ml Balance -1655 ml 435 ml Intake Free Water 100 ml 50 ml Tube Feeding 245 ml 385 ml Hemodialysis UF 2000 ml # Bowel Movements 5 ET-Tube: 7.0 ET Position: 23 Abel Graham MD Aug 31, 2019 16:41
[2019-08-31] MEDS: Albuterol/Ipratropium 3ml neb HHN SCH ×2 (19:21→22:44)
[2019-08-31] MEDS: Dyna-Hex 2% Top Sol 2oz TOPIC SCH (20:01)
--- NOTE | 2019-08-31 20:12 | General Progress Note ---
Assessment/Plan Problem List: (1) Failure to thrive (0-17) ICD Codes: R62.51 - Failure to thrive (0-17) SNOMED: 161391483 (2) Hypertensive kidney disease ICD Codes: I12.9 - Hypertensive chronic kidney disease with stage 1 through stage 4 chronic kidney disease, or unspecified chronic kidney disease SNOMED: 87839560 (3) Pneumonia ICD Codes: J18.9 - Pneumonia, unspecified organism SNOMED: 405927947 Qualifiers: Qualified Codes: J18.9 - Pneumonia, unspecified organism (4) ESRD (end stage renal disease) ICD Codes: N18.6 - End stage renal disease SNOMED: 59058635 (5) Septic arthritis ICD Codes: M00.9 - Pyogenic arthritis, unspecified SNOMED: 609448747 (6) Thrombocytopenia ICD Codes: D69.6 - Thrombocytopenia, unspecified SNOMED: 442367156 (7) Hypotension ICD Codes: I95.9 - Hypotension, unspecified SNOMED: 63756220 Qualifiers: Qualified Codes: I95.3 - Hypotension of hemodialysis (8) Malnutrition ICD Codes: E46 - Unspecified protein-calorie malnutrition SNOMED: 92799435 Status: stable, not improved, unchanged, deteriorating Assessment/Plan: cont resp care chest pt/suctioning resp rx check cbc check chest ct cont weaning- try simv monitor plts iv PPI iv abx HD bp rx critical and guarded tube feeds per gi will d/w family trach vs terminal extubation Subjective ROS Limited/Unobtainable: No Constitutional: Reports: malaise, weakness HEENT: Reports: no symptoms Cardiovascular: Reports: no symptoms Respiratory: Reports: cough Gastrointestinal/Abdominal: Reports: no symptoms Genitourinary: Reports: no symptoms Neurologic/Psychiatric: Reports: pre-existing deficit Endocrine: Reports: no symptoms Hematologic/Lymphatic: Reports: anemia Allergies: Coded Allergies: VANCOMYCIN (Unverified Allergy, Unknown, 08/02/19) All Systems: reviewed and negative except above Subjective no events. on the vent. remains alert and awake. no fevers. alert. minimal congestion. s/p 150 cc thoracentesis bp better after ivf bolus and albumin last night. cxr noted Objective Last 24 Hour Vital Signs Date Time Temp Pulse Resp B/P (MAP) Pulse Ox O2 Delivery O2 Flow Rate FiO2 08/31/19 19:21 83 20 100 Mechanical Ventilator 45 81 19 45 08/31/19 19:00 82 20 121/64 (83) 100 08/31/19 18:00 75 21 134/53 (80) 100 08/31/19 18:00 80 117/61 08/31/19 18:00 117/61 08/31/19 17:00 74 19 137/52 (80) 100 08/31/19 16:50 75 18 45 08/31/19 16:00 Mechanical Ventilator Mechanical Ventilator Mechanical Ventilator Mechanical Ventilator 08/31/19 16:00 75 20 99/78 (85) 100 08/31/19 16:00 75 08/31/19 16:00 45 08/31/19 15:28 78 18 45 08/31/19 15:00 81 18 115/62 (79) 99 08/31/19 14:00 85 20 149/58 (88) 98 08/31/19 13:52 154/81 08/31/19 13:00 99.2 79 18 140/51 (80) 100 08/31/19 12:53 91 21 45 08/31/19 12:00 79 19 143/44 (77) 100 08/31/19 12:00 73 08/31/19 12:00 45 08/31/19 12:00 Mechanical Ventilator Mechanical Ventilator Mechanical Ventilator Mechanical Ventilator 08/31/19 11:00 83 18 134/59 (84) 100 08/31/19 10:43 76 146/56 08/31/19 10:42 74 16 45 08/31/19 10:00 77 18 144/51 (82) 100 08/31/19 09:53 08/31/19 09:00 69 22 134/45 (74) 100 08/31/19 09:00 69 18 45 08/31/19 08:00 68 08/31/19 08:00 Mechanical Ventilator Mechanical Ventilator Mechanical Ventilator Mechanical Ventilator 08/31/19 08:00 98.8 74 18 133/52 (79) 99 08/31/19 07:54 45 08/31/19 07:00 70 18 143/57 (85) 100 70 08/31/19 06:55 70 18 45 08/31/19 06:28 69 18 08/31/19 06:00 68 18 135/56 (82) 100 68 08/31/19 05:38 144/55 08/31/19 05:10 66 18 45 08/31/19 05:00 65 21 134/51 (78) 65 08/31/19 04:00 67 08/31/19 04:00 Mechanical Ventilator Mechanical Ventilator Mechanical Ventilator Mechanical Ventilator 08/31/19 04:00 45 08/31/19 04:00 98.0 66 18 136/56 (82) 66 08/31/19 03:06 66 18 45 08/31/19 03:00 67 18 126/51 (76) 67 08/31/19 02:00 66 18 127/58 (81) 66 08/31/19 01:09 66 18 45 08/31/19 01:00 69 20 127/62 (83) 69 08/31/19 00:00 97.8 70 19 116/49 (71) 99 70 08/31/19 00:00 45 08/31/19 00:00 116/49 08/31/19 00:00 Mechanical Ventilator Mechanical Ventilator Mechanical Ventilator Mechanical Ventilator 08/31/19 00:00 74 08/30/19 22:41 68 18 45 08/30/19 22:00 66 18 99/46 (63) 100 66 08/30/19 21:13 68 18 45 08/30/19 21:00 68 18 93/46 (62) 100 68 Intake and Output 08/30/19 08/31/19 19:00 07:00 Intake Total 345 ml 435 ml Output Total 2000 ml Balance -1655 ml 435 ml Intake Free Water 100 ml 50 ml Tube Feeding 245 ml 385 ml Hemodialysis UF 2000 ml # Bowel Movements 5 Laboratory Tests 08/31/19 03:40: Sodium Level 148H, Potassium Level 3.5, Chloride Level 108H, Carbon Dioxide Level 30, Anion Gap 10, Blood Urea Nitrogen 29H, Creatinine 2.3H, Estimat Glomerular Filtration Rate 20.5, Glucose Level 138H, Uric Acid 4.1, Calcium Level 8.7, Phosphorus Level 3.0, Magnesium Level 2.2, Total Bilirubin 0.3, Aspartate Amino Transf (AST/SGOT) 531H, Alanine Aminotransferase (ALT/SGPT) 137H , Alkaline Phosphatase 120H, C-Reactive Protein, Quantitative 7.7H, Pro-B-Type Natriuretic Peptide > 65294M, Total Protein 5.4L, Albumin 2.4L, Globulin 3.0, Albumin/Globulin Ratio 0.8L Height (Feet): 5 Height (Inches): 4.00 Weight (Pounds): 114 Objective General Appearance: WD/WN, awake/moaning. orally intubated Neck: supple Cardiovascular: normal rate Respiratory/Chest: rhonchi - bilaterally Abdomen: normal bowel sounds, non tender, soft, no organomegaly Edema: no edema noted Arm (L), no edema noted Arm (R), no edema noted Leg (L), no edema noted Leg (R), no edema noted Pedal (L), no edema noted Pedal (R), no edema noted Generalized Neurologic: disoriented, aphasia Nate Beltran MD Aug 31, 2019 20:12
--- NOTE | 2019-08-31 20:29 | General Progress Note ---
Assessment/Plan Status: stable, not improved, unchanged, deteriorating Assessment/Plan: Assessment - Severe ulcerative esophagitis on endoscopy - on BID PPI - Resp failure - thrombocytopenia --> resolved - Renal failure - aspiration risk --> s/p PEG - anemia - bradycardia - Poor prognosis Recommendations - Continue TF - reduce water flushes - elevate HOB - monitor H&H - Wean / extubate I will be away until Thursday. Coverage available. Call if questions. Subjective Allergies: Coded Allergies: VANCOMYCIN (Unverified Allergy, Unknown, 08/02/19) Subjective Above noted No events overnight tolerating TF d/w RN Objective Last 24 Hour Vital Signs Date Time Temp Pulse Resp B/P (MAP) Pulse Ox O2 Delivery O2 Flow Rate FiO2 08/31/19 20:00 45 08/31/19 19:21 83 20 100 Mechanical Ventilator 45 81 19 45 08/31/19 19:00 82 20 121/64 (83) 100 08/31/19 18:00 75 21 134/53 (80) 100 08/31/19 18:00 80 117/61 08/31/19 18:00 117/61 08/31/19 17:00 74 19 137/52 (80) 100 08/31/19 16:50 75 18 45 08/31/19 16:00 Mechanical Ventilator Mechanical Ventilator Mechanical Ventilator Mechanical Ventilator 08/31/19 16:00 75 20 99/78 (85) 100 08/31/19 16:00 75 08/31/19 16:00 45 08/31/19 15:28 78 18 45 08/31/19 15:00 81 18 115/62 (79) 99 08/31/19 14:00 85 20 149/58 (88) 98 08/31/19 13:52 154/81 08/31/19 13:00 99.2 79 18 140/51 (80) 100 08/31/19 12:53 91 21 45 08/31/19 12:00 79 19 143/44 (77) 100 08/31/19 12:00 73 08/31/19 12:00 45 08/31/19 12:00 Mechanical Ventilator Mechanical Ventilator Mechanical Ventilator Mechanical Ventilator 08/31/19 11:00 83 18 134/59 (84) 100 08/31/19 10:43 76 146/56 08/31/19 10:42 74 16 45 08/31/19 10:00 77 18 144/51 (82) 100 08/31/19 09:53 08/31/19 09:00 69 22 134/45 (74) 100 08/31/19 09:00 69 18 45 08/31/19 08:00 68 08/31/19 08:00 Mechanical Ventilator Mechanical Ventilator Mechanical Ventilator Mechanical Ventilator 08/31/19 08:00 98.8 74 18 133/52 (79) 99 08/31/19 07:54 45 08/31/19 07:00 70 18 143/57 (85) 100 70 08/31/19 06:55 70 18 45 08/31/19 06:28 69 18 08/31/19 06:00 68 18 135/56 (82) 100 68 08/31/19 05:38 144/55 08/31/19 05:10 66 18 45 08/31/19 05:00 65 21 134/51 (78) 65 08/31/19 04:00 67 08/31/19 04:00 Mechanical Ventilator Mechanical Ventilator Mechanical Ventilator Mechanical Ventilator 08/31/19 04:00 45 08/31/19 04:00 98.0 66 18 136/56 (82) 66 08/31/19 03:06 66 18 45 08/31/19 03:00 67 18 126/51 (76) 67 08/31/19 02:00 66 18 127/58 (81) 66 08/31/19 01:09 66 18 45 08/31/19 01:00 69 20 127/62 (83) 69 08/31/19 00:00 97.8 70 19 116/49 (71) 99 70 08/31/19 00:00 45 08/31/19 00:00 116/49 08/31/19 00:00 Mechanical Ventilator Mechanical Ventilator Mechanical Ventilator Mechanical Ventilator 08/31/19 00:00 74 08/30/19 22:41 68 18 45 08/30/19 22:00 66 18 99/46 (63) 100 66 08/30/19 21:13 68 18 45 08/30/19 21:00 68 18 93/46 (62) 100 68 Intake and Output 08/30/19 08/31/19 19:00 07:00 Intake Total 345 ml 435 ml Output Total 2000 ml Balance -1655 ml 435 ml Intake Free Water 100 ml 50 ml Tube Feeding 245 ml 385 ml Hemodialysis UF 2000 ml # Bowel Movements 5 Laboratory Tests 08/31/19 03:40: Sodium Level 148H, Potassium Level 3.5, Chloride Level 108H, Carbon Dioxide Level 30, Anion Gap 10, Blood Urea Nitrogen 29H, Creatinine 2.3H, Estimat Glomerular Filtration Rate 20.5, Glucose Level 138H, Uric Acid 4.1, Calcium Level 8.7, Phosphorus Level 3.0, Magnesium Level 2.2, Total Bilirubin 0.3, Aspartate Amino Transf (AST/SGOT) 531H, Alanine Aminotransferase (ALT/SGPT) 137H , Alkaline Phosphatase 120H, C-Reactive Protein, Quantitative 7.7H, Pro-B-Type Natriuretic Peptide > 92183B, Total Protein 5.4L, Albumin 2.4L, Globulin 3.0, Albumin/Globulin Ratio 0.8L Height (Feet): 5 Height (Inches): 4.00 Weight (Pounds): 114 Objective Debilitated frail woman NCAT (+) ETT supple scattered ronchi RR abd soft ND NT, (+) GT no edema Cristy Elizondo MD Aug 31, 2019 20:29
[2019-08-31] MEDS: Epoetin Alfa-EPBX(ESRD on dialysis)4000 units/ml vial SUBQ SCH (20:35)
[2019-08-31 21:36] LABS: HEMATOCRIT 11.3 % (37.0-47.0); MEAN CORPUSCULAR VOLUME 93 FL (80-99); PLATELET COUNT 309 K/UL (150-450); RED BLOOD COUNT 1.21 M/UL (4.20-5.40); RED CELL DISTRIBUTION WIDTH 18.6 % (11.6-14.8); WHITE BLOOD COUNT 8.4 K/UL (4.8-10.8)
[2019-08-31 22:03] LABS: HEMOGLOBIN 3.6 G/DL (12.0-16.0)
[2019-08-31 23:08] LABS: HEMATOCRIT 10.5 % (37.0-47.0); MEAN CORPUSCULAR VOLUME 91 FL (80-99); PLATELET COUNT 316 K/UL (150-450); RED BLOOD COUNT 1.16 M/UL (4.20-5.40); RED CELL DISTRIBUTION WIDTH 17.1 % (11.6-14.8)
[2019-08-31 23:11] LABS: HEMOGLOBIN 3.5 G/DL (12.0-16.0)
[2019-09-01] VITALS (30 sets, daily range): BP systolic 112–169; BP diastolic 39–97
[2019-09-01] MEDS: Albuterol/Ipratropium 3ml neb HHN SCH ×6 (02:17→23:07)
--- NOTE | 2019-09-01 03:00 | Progress Note ---
DATE: 08/31/2019 CARDIOLOGY PROGRESS NOTE SUBJECTIVE: Remains on ventilator support. Alert and awake. No distress. Minimal secretions. Status post thoracentesis, 150 mL removed. Blood pressure low last evening, requiring bolus of IV fluid and albumin. PHYSICAL EXAMINATION: VITAL SIGNS: Blood pressure 121/64, heart rate 82, and respiratory rate 20. LUNGS: Scattered rhonchi. CARDIAC: Regular rhythm and rate. Normal S1 and S2. ABDOMEN: Soft. EXTREMITIES: No edema. LABORATORY DATA: White count 8.4, hemoglobin 3.6, and platelet count 309,000. Sodium 148, potassium 3.5, bicarb 30, BUN 29, and creatinine 2.3. Liver function studies have increased. IMPRESSION: 1. Possible hemothorax. 2. Severe anemia. 3. Respiratory failure. 4. Hypovolemia. 5. Shock. 6. Sinus bradycardia. 7. End-stage renal disease. 8. Critical and guarded. PLAN: 1. Packed red blood cell transfusion. 2. CT scan of the chest to be obtained to evaluate for hemothorax. 3. Off all anti-platelet and anticoagulants. 4. Ventilator support. 5. Volume resuscitation as needed. 6. Hemodialysis with ultrafiltration based on clinical parameters. 7. May need tracheostomy if pending family approval. Abel Stubbs M.D. DR: ARETHA JOB#: [id number] CC:
[2019-09-01] MEDS: HydrALAZINE 25mg tab NG SCH ×3 (05:33→17:47)
--- NOTE | 2019-09-01 07:11 | Hematology/Onc Progress Note ---
Assessment/Plan Assessment/Plan # Thrombocytopenia - potential causes multifactorial, evaluate liver and viral etiologies to begin, in this case due to sepsis with septic shock also with cirrhosis and liver disease --> Hep panel and HIV ordered -> neg --> US abd to evaluate for cirrhosis and hsm ordered --> reviewed --> Peripheral smear ordered to evaluate for blasts /schistocytes --> abx and other meds have been reviewed --> ok for ppx if plt >50k w/ either heparin or lovenox --> Transfuse if Plt < 20k and fever, or if Plt < 10k without fever --> okay for permacath change once plt better--> for 08/14 --> plt trend: 43-->83-->237k-->292-->341-->315-->388 -->444-->530 # Anemia of chronic disease due to underlying chronic medical issues, multifactorial v Gi bleed --> Anemia workup has been ordered, rule out gi bleed --> No evidence of hemolysis is noted, peripheral smear has been reviewed. --> Hgb goal >7. Transfuse prn. --> Epogen has been started --> HOLD OFF IRON ferritin is >1000 --> Medications have been reviewed --> low threshold for gi evaluation in case has occult + --> hgb 9-->6.7-->9.2 -->10.5-->10.6 -->10.7-->10-->10.5-->9.8-->10.4-->9.5--> 3.6 --> blood tx: 08/11, 08/31 --> CT Chest pendig r/o hemothorax # Sepsis with shock. --> abx as per id, recs noted --> pressors as needed # Healthcare-associated pneumonia. --> recs reviewed --> abx: jung/micafungin-->jung --> 08/24 us chest: moderate left pleural effusion # Severe protein-calorie malnutrition. --> nutritional support # End-stage renal disease --> had as renal hd --> with permacath # History of hypertension. --> per cards, now with Bradycardia. # resp failure s/p vent/trach # HypoThyroid # Ngt feedings # Dvt ppx scd's The timing of this note does not necessarily reflect the time of the patient was seen. Greatly appreciate consultation. Subjective Constitutional: Denies: no symptoms, chills, fever, malaise, weakness, other HEENT: Denies: no symptoms, eye pain, blurred vision, tearing, double vision, ear pain, ear discharge, nose pain, nose congestion, throat pain, throat swelling, mouth pain, mouth swelling, other Cardiovascular: Denies: no symptoms, chest pain, edema, irregular heart rate, lightheadedness, palpitations, syncope, other Respiratory: Denies: no symptoms, cough, shortness of breath, SOB with excertion, SOB at rest, sputum, wheezing, other Gastrointestinal/Abdominal: Denies: no symptoms, abdomen distended, abdominal pain, black stools, tarry stools, blood in stool, constipated, diarrhea, difficulty swallowing, nausea, poor appetite, poor fluid intake, rectal bleeding , vomiting, other Genitourinary: Denies: no symptoms, burning, discharge, frequency, flank pain, hematuria, incontinence, pain, urgency, other Neurologic/Psychiatric: Denies: no symptoms, anxiety, depressed, emotional problems, headache, numbness, paresthesia, pre-existing deficit, seizure, tingling, tremors, weakness, other Endocrine: Denies: no symptoms, excessive sweating, flushing, intolerance to cold, intolerance to heat, increased hunger, increased thirst, increased urine, unexplained weight gain, unexplained weight loss, other Allergies: Coded Allergies: VANCOMYCIN (Unverified Allergy, Unknown, 08/02/19) Subjective 08/11: no bleeding or chills, labs reviewed, no major bleeding, plt less than 50k 08/12: icu, s/p blood, hgb improved to 9.2, 08/14: icu, pending consent for thora and permacath, labs reviewed 08/15: new permacath placed, no bleeding, for hd, plt much improved, started lovenox sq 08/16: ett to be adjusted, bp on high end, micafungin started, possible bronch 08/17: weaning as per pulm, no events otherwise, labs noted 08/18: no events no bleeding, remains confused on vent, for hd 08/20: icu, failed to wean, labs reviewed, jung 08/21: resting in bed, no overnight events, labs reviewed 08/22: awake, confused, restraints, no overnight events 08/23: no events, no bleeding, on ppi bid 08/24: icu, failed to wean, labs reviewed 08/25: no overnight events, us chest, restraints, afebrile 08/26 difficult in weaning, nad, seen by surg, pulm labs noted 08/27 awake on restraints, thoracentesis for am, labs reviewed 08/29 no bleeding, no night sweats, no major changes, on ppi bid 08/30 no major events, remains on vent, no bleeding, dw pcp 08/31 hgb dropped to 3.6, has been transfused with prbc, in icu, dw Rn, ct chest pend Objective Objective Current Medications Medications (Trade) Dose Ordered Sig/Javier Route PRN Reason Start Time Stop Time Status Last Admin Dose Admin Acetylcysteine (Mucomyst) 100 mg Q4HRT N 08/31/19 19:00 11/29/19 18:59 09/01/19 02:17 Albuterol/ Ipratropium (Albuterol/ Ipratropium) 3 ml Q4HRT N 08/31/19 19:00 09/05/19 18:59 09/01/19 02:17 Amlodipine Besylate (Norvasc) 5 mg BID NG 08/23/19 01:45 09/22/19 01:44 08/31/19 10:43 Atropine Sulfate (Atropine) 1 mg Q4H PRN IVP Per rx protocol 08/13/19 08:30 09/12/19 08:29 Chlorhexidine Gluconate (Nae-Hex 2%) 1 applic DAILY@1999 TOPIC 08/15/19 20:00 09/14/19 19:59 08/31/19 20:01 Dextrose (Dextrose 50%) 50 ml Q30M PRN IV Hypoglycemia 08/11/19 10:30 09/04/19 17:44 08/22/19 15:46 Diphenhydramine HCl (Benadryl) 50 mg Q4H PRN IVP Itching 08/09/19 14:30 09/08/19 14:29 08/13/19 02:39 Epoetin Thomas (Epoetin Thmoas(ESRD on dialysis)) 4,000 unit SUBQ 08/12/19 21:00 09/11/19 20:59 08/31/19 20:35 Hydralazine HCl (Apresoline) 10 mg Q4H PRN IV For High Blood Pressure 08/18/19 12:44 09/17/19 12:43 08/22/19 09:22 Hydralazine HCl (Apresoline) 25 mg Q6HR NG 08/23/19 06:00 09/22/19 05:59 09/01/19 05:33 Lansoprazole (Prevacid) 30 mg BID GT 08/19/19 09:00 09/18/19 08:59 08/31/19 18:32 Levothyroxine Sodium (Synthroid) 50 mcg DAILY@0630 ORAL 08/25/19 06:30 09/24/19 06:29 09/01/19 05:33 Metoclopramide HCl (Reglan) 5 mg Q8H PRN IVP Nausea & Vomiting 08/09/19 12:39 09/08/19 12:38 Last 24 Hour Vital Signs Date Time Temp Pulse Resp B/P (MAP) Pulse Ox O2 Delivery O2 Flow Rate FiO2 09/01/19 06:30 83 18 09/01/19 06:00 68 18 140/69 (92) 100 09/01/19 05:33 144/55 09/01/19 05:00 73 18 165/71 (102) 100 09/01/19 04:38 88 19 40 09/01/19 04:00 45 09/01/19 04:00 98.6 80 19 134/51 (78) 100 09/01/19 04:00 Mechanical Ventilator Mechanical Ventilator Mechanical Ventilator Mechanical Ventilator 09/01/19 03:15 95 09/01/19 03:00 100 25 129/92 (104) 100 09/01/19 02:45 95 25 138/64 (88) 100 09/01/19 02:30 89 18 130/50 (76) 94 09/01/19 02:24 89 18 100 Mechanical Ventilator 40 86 18 40 09/01/19 02:00 94 22 134/39 (70) 97 09/01/19 01:00 83 19 119/50 (73) 100 09/01/19 00:35 82 18 40 09/01/19 00:00 45 09/01/19 00:00 Mechanical Ventilator Mechanical Ventilator Mechanical Ventilator Mechanical Ventilator 09/01/19 00:00 98.0 87 21 126/51 (76) 99 09/01/19 00:00 87 08/31/19 23:54 121/47 08/31/19 23:15 112 29 136/51 (79) 99 08/31/19 23:00 132 29 162/60 (94) 95 08/31/19 22:51 95 23 98 Mechanical Ventilator 45 08/31/19 22:45 98 30 99 Mechanical Ventilator 45 98 24 45 08/31/19 22:00 73 24 122/53 (76) 100 08/31/19 21:00 77 24 120/51 (74) 100 08/31/19 20:44 77 18 45 08/31/19 20:00 45 08/31/19 20:00 Mechanical Ventilator Mechanical Ventilator Mechanical Ventilator Mechanical Ventilator 08/31/19 20:00 98.2 77 26 125/48 (73) 100 08/31/19 19:29 76 08/31/19 19:21 83 20 100 Mechanical Ventilator 45 81 19 45 08/31/19 19:00 82 20 121/64 (83) 100 08/31/19 18:00 75 21 134/53 (80) 100 08/31/19 18:00 80 117/61 08/31/19 18:00 117/61 08/31/19 17:00 74 19 137/52 (80) 100 08/31/19 16:50 75 18 45 08/31/19 16:00 Mechanical Ventilator Mechanical Ventilator Mechanical Ventilator Mechanical Ventilator 08/31/19 16:00 75 20 99/78 (85) 100 08/31/19 16:00 75 08/31/19 16:00 45 08/31/19 15:28 78 18 45 08/31/19 15:00 81 18 115/62 (79) 99 08/31/19 14:00 85 20 149/58 (88) 98 08/31/19 13:52 154/81 08/31/19 13:00 99.2 79 18 140/51 (80) 100 08/31/19 12:53 91 21 45 08/31/19 12:00 79 19 143/44 (77) 100 08/31/19 12:00 73 08/31/19 12:00 45 08/31/19 12:00 Mechanical Ventilator Mechanical Ventilator Mechanical Ventilator Mechanical Ventilator 08/31/19 11:00 83 18 134/59 (84) 100 08/31/19 10:43 76 146/56 08/31/19 10:42 74 16 45 08/31/19 10:00 77 18 144/51 (82) 100 08/31/19 09:53 08/31/19 09:00 69 22 134/45 (74) 100 08/31/19 09:00 69 18 45 08/31/19 08:00 68 08/31/19 08:00 Mechanical Ventilator Mechanical Ventilator Mechanical Ventilator Mechanical Ventilator 08/31/19 08:00 98.8 74 18 133/52 (79) 99 08/31/19 07:54 45 08/31/19 07:00 70 18 143/57 (85) 100 70 08/31/19 06:55 70 18 45 08/31/19 06:28 69 18 08/31/19 06:00 68 18 135/56 (82) 100 68 08/31/19 05:38 144/55 08/31/19 05:10 66 18 45 08/31/19 05:00 65 21 134/51 (78) 65 08/31/19 04:00 67 08/31/19 04:00 Mechanical Ventilator Mechanical Ventilator Mechanical Ventilator Mechanical Ventilator 08/31/19 04:00 45 08/31/19 04:00 98.0 66 18 136/56 (82) 66 08/31/19 03:06 66 18 45 08/31/19 03:00 67 18 126/51 (76) 67 08/31/19 02:00 66 18 127/58 (81) 66 08/31/19 01:09 66 18 45 08/31/19 01:00 69 20 127/62 (83) 69 08/31/19 00:00 97.8 70 19 116/49 (71) 99 70 08/31/19 00:00 45 08/31/19 00:00 116/49 08/31/19 00:00 Mechanical Ventilator Mechanical Ventilator Mechanical Ventilator Mechanical Ventilator 08/31/19 00:00 74 08/30/19 22:41 68 18 45 08/30/19 22:00 66 18 99/46 (63) 100 66 08/30/19 21:13 68 18 45 08/30/19 21:00 68 18 93/46 (62) 100 68 08/30/19 20:00 77 08/30/19 20:00 97.5 77 20 104/48 (66) 62 77 08/30/19 20:00 40 08/30/19 20:00 Mechanical Ventilator Mechanical Ventilator Mechanical Ventilator Mechanical Ventilator 08/30/19 19:16 90 24 60 08/30/19 19:00 102 25 77/47 (57) 95 102 08/30/19 18:00 95 23 92/58 (69) 98 95 08/30/19 18:00 95 92/58 08/30/19 18:00 92/58 08/30/19 17:15 97.7 78 21 93/55 (68) 100 78 08/30/19 17:06 75 18 40 08/30/19 17:00 83 20 93/55 (68) 94 83 08/30/19 16:43 98 08/30/19 16:30 75 22 40 40 08/30/19 16:00 Mechanical Ventilator Mechanical Ventilator Mechanical Ventilator Mechanical Ventilator 08/30/19 16:00 78 08/30/19 16:00 40 08/30/19 16:00 86 27 100/58 (72) 92 86 08/30/19 15:26 75 18 40 08/30/19 15:00 75 22 97/51 (66) 100 75 08/30/19 14:00 99 30 131/72 (91) 100 99 08/30/19 13:00 97.8 77 22 136/113 (121) 100 77 08/30/19 12:37 73 18 40 08/30/19 12:00 Mechanical Ventilator Mechanical Ventilator Mechanical Ventilator Mechanical Ventilator 08/30/19 12:00 74 25 130/69 (89) 93 74 08/30/19 12:00 40 08/30/19 11:46 79 08/30/19 11:03 99 08/30/19 11:00 116 30 159/97 (117) 100 116 08/30/19 10:59 117 30 40 08/30/19 10:00 66 22 146/72 (96) 99 66 08/30/19 09:30 78 25 40 08/30/19 09:24 57 18 40 08/30/19 09:00 72 27 147/69 (95) 100 72 08/30/19 08:00 40 08/30/19 08:00 Mechanical Ventilator Mechanical Ventilator Mechanical Ventilator Mechanical Ventilator 08/30/19 08:00 89 08/30/19 08:00 98.7 80 20 163/94 (117) 97 80 Intake and Output 08/31/19 09/01/19 19:00 07:00 Intake Total 580 ml 650 ml Balance 580 ml 650 ml Intake Free Water 140 ml Tube Feeding 420 ml 350 ml Blood Product 250 ml Other 20 ml 50 ml # Voids 1 # Bowel Movements 3 2 Labs Test 08/29/19 08:15 08/30/19 16:41 08/31/19 03:40 08/31/19 20:50 Prothrombin Time 10.7 SEC (9.30-11.50) Prothromb Time International Ratio 1.0 (0.9-1.1) Activated Partial Thromboplast Time 29 SEC (23-33) Arterial Blood pH 7.553 (7.350-7.450) Arterial Blood Partial Pressure CO2 35.7 mmHg (35.0-45.0) Arterial Blood Partial Pressure O2 111.7 mmHg (75.0-100.0) Arterial Blood HCO3 30.7 mmol/L (22.0-26.0) Arterial Blood Oxygen Saturation 97.5 % (95-100) Arterial Blood Base Excess 7.7 (-2-2) Cuauhtemoc Test Positive Sodium Level 148 MMOL/L (136-145) Potassium Level 3.5 MMOL/L (3.5-5.1) Chloride Level 108 MMOL/L (98-107) Carbon Dioxide Level 30 MMOL/L (21-32) Anion Gap 10 mmol/L (5-15) Blood Urea Nitrogen 29 mg/dL (7-18) Creatinine 2.3 MG/DL (0.55-1.30) Estimat Glomerular Filtration Rate 20.5 mL/min (>60) Glucose Level 138 MG/DL (74-106) Uric Acid 4.1 MG/DL (2.6-7.2) Calcium Level 8.7 MG/DL (8.5-10.1) Phosphorus Level 3.0 MG/DL (2.5-4.9) Magnesium Level 2.2 MG/DL (1.8-2.4) Total Bilirubin 0.3 MG/DL (0.2-1.0) Aspartate Amino Transf (AST/SGOT) 531 U/L (15-37) Alanine Aminotransferase (ALT/SGPT) 137 U/L (12-78) Alkaline Phosphatase 120 U/L (46-116) C-Reactive Protein, Quantitative 7.7 mg/dL (0.00-0.90) Pro-B-Type Natriuretic Peptide > 89709 pg/mL (0-125) Total Protein 5.4 G/DL (6.4-8.2) Albumin 2.4 G/DL (3.4-5.0) Globulin 3.0 g/dL Albumin/Globulin Ratio 0.8 (1.0-2.7) White Blood Count 8.4 K/UL (4.8-10.8) Red Blood Count 1.21 M/UL (4.20-5.40) Hemoglobin 3.6 G/DL (12.0-16.0) Hematocrit 11.3 % (37.0-47.0) Mean Corpuscular Volume 93 FL (80-99) Mean Corpuscular Hemoglobin 29.9 PG (27.0-31.0) Mean Corpuscular Hemoglobin Concent 31.9 G/DL (32.0-36.0) Red Cell Distribution Width 18.6 % (11.6-14.8) Platelet Count 309 K/UL (150-450) Mean Platelet Volume 6.1 FL (6.5-10.1) Neutrophils (%) (Auto) % (45.0-75.0) Lymphocytes (%) (Auto) % (20.0-45.0) Monocytes (%) (Auto) % (1.0-10.0) Eosinophils (%) (Auto) % (0.0-3.0) Basophils (%) (Auto) % (0.0-2.0) Differential Total Cells Counted 100 Neutrophils % (Manual) 78 % (45-75) Lymphocytes % (Manual) 15 % (20-45) Monocytes % (Manual) 4 % (1-10) Eosinophils % (Manual) 1 % (0-3) Basophils % (Manual) 0 % (0-2) Band Neutrophils 2 % (0-8) Platelet Estimate Adequate Platelet Morphology Normal Hypochromasia 3+ Anisocytosis 3+ Test 08/31/19 22:45 White Blood Count 9.0 K/UL (4.8-10.8) Red Blood Count 1.16 M/UL (4.20-5.40) Hemoglobin 3.5 G/DL (12.0-16.0) Hematocrit 10.5 % (37.0-47.0) Mean Corpuscular Volume 91 FL (80-99) Mean Corpuscular Hemoglobin 30.5 PG (27.0-31.0) Mean Corpuscular Hemoglobin Concent 33.6 G/DL (32.0-36.0) Red Cell Distribution Width 17.1 % (11.6-14.8) Platelet Count 316 K/UL (150-450) Mean Platelet Volume 5.2 FL (6.5-10.1) Neutrophils (%) (Auto) % (45.0-75.0) Lymphocytes (%) (Auto) % (20.0-45.0) Monocytes (%) (Auto) % (1.0-10.0) Eosinophils (%) (Auto) % (0.0-3.0) Basophils (%) (Auto) % (0.0-2.0) Differential Total Cells Counted 100 Neutrophils % (Manual) 70 % (45-75) Lymphocytes % (Manual) 28 % (20-45) Monocytes % (Manual) 2 % (1-10) Eosinophils % (Manual) 0 % (0-3) Basophils % (Manual) 0 % (0-2) Band Neutrophils 0 % (0-8) Platelet Estimate Adequate Platelet Morphology Normal Height (Feet): 5 Height (Inches): 4.00 Weight (Pounds): 114 Objective gen: nad pulm: on trach+ / vent, decreased breath sounds left cv: rrr, no gmr abd: sfot, nt, nd ++ gt ext: no cce Gio Rob MD Sep 01, 2019 07:11
--- NOTE | 2019-09-01 08:26 | Critical Care Progress Note ---
Assessment/Plan Assessment/Plan respiratory failure hemoptysis resolved hypoxemia chronic renal failure toxic met encephalopathy severe protein calorie malnutrition cachexia left lung whiteout/collapse, improved with intubation s/p intubation anemia ? blood loss pulmonary edema with elevated BNP + pleural effusion PLAN fluid cultures noted care noted and reviewed HD as needed reviewed care failed weaning past few days- 3rd spacing noted d/w family as to trach vs terminal care; per Dr. Beltran keep negative and monitor osmotic pressures ID and other specialist reviewed close follow up discussed elevated head and monitor ROM watch fluid status nutrition as able isolation as needed off load as able and monitor skin exam ROM as able ICU care and management critical at present requires ICU management and close follow up care feeds as able and monitor residuals medications/laboratory data/nursing notes/ICU care reviewed in detail note reviewed and edited care discussed with RN and RT ICU time spent >40 minutes coordinating care Critical Care - Subjective Interval Events: care noted and reviewed in ICU low HH noted heme noted ROS Limited/Unobtainable: Yes Condition: critical EKG Rhythm: Sinus Rhythm Residuals: minimal Tube Feeding Tolerated: yes I&O: Intake and Output 08/31/19 09/01/19 19:00 07:00 Intake Total 580 ml 900 ml Balance 580 ml 900 ml Intake Free Water 140 ml Tube Feeding 420 ml 350 ml Blood Product 500 ml Other 20 ml 50 ml # Voids 1 # Bowel Movements 3 2 Critical Care - Objective ET-Tube: 7.0 ET Position: 21 Last 24 Hour Vital Signs Date Time Temp Pulse Resp B/P (MAP) Pulse Ox O2 Delivery O2 Flow Rate FiO2 09/01/19 08:00 97.4 90 18 137/63 (87) 100 91 09/01/19 08:00 Mechanical Ventilator Mechanical Ventilator Mechanical Ventilator Mechanical Ventilator 09/01/19 08:00 45 09/01/19 07:26 87 18 100 Mechanical Ventilator 40 80 18 40 09/01/19 07:00 81 23 164/61 (95) 100 09/01/19 06:30 83 18 09/01/19 06:00 68 18 140/69 (92) 100 09/01/19 05:33 144/55 09/01/19 05:00 73 18 165/71 (102) 100 09/01/19 04:38 88 19 40 09/01/19 04:00 45 09/01/19 04:00 98.6 80 19 134/51 (78) 100 09/01/19 04:00 Mechanical Ventilator Mechanical Ventilator Mechanical Ventilator Mechanical Ventilator 09/01/19 03:15 95 09/01/19 03:00 100 25 129/92 (104) 100 09/01/19 02:45 95 25 138/64 (88) 100 09/01/19 02:30 89 18 130/50 (76) 94 09/01/19 02:24 89 18 100 Mechanical Ventilator 40 86 18 40 09/01/19 02:00 94 22 134/39 (70) 97 09/01/19 01:00 83 19 119/50 (73) 100 09/01/19 00:35 82 18 40 09/01/19 00:00 45 09/01/19 00:00 Mechanical Ventilator Mechanical Ventilator Mechanical Ventilator Mechanical Ventilator 09/01/19 00:00 98.0 87 21 126/51 (76) 99 09/01/19 00:00 87 08/31/19 23:54 121/47 08/31/19 23:15 112 29 136/51 (79) 99 08/31/19 23:00 132 29 162/60 (94) 95 08/31/19 22:51 95 23 98 Mechanical Ventilator 45 08/31/19 22:45 98 30 99 Mechanical Ventilator 45 98 24 45 08/31/19 22:00 73 24 122/53 (76) 100 08/31/19 21:00 77 24 120/51 (74) 100 08/31/19 20:44 77 18 45 08/31/19 20:00 45 08/31/19 20:00 Mechanical Ventilator Mechanical Ventilator Mechanical Ventilator Mechanical Ventilator 08/31/19 20:00 98.2 77 26 125/48 (73) 100 08/31/19 19:29 76 08/31/19 19:21 83 20 100 Mechanical Ventilator 45 81 19 45 08/31/19 19:00 82 20 121/64 (83) 100 08/31/19 18:00 75 21 134/53 (80) 100 08/31/19 18:00 80 117/61 1820 18:00 117/61 08/31/19 17:00 74 19 137/52 (80) 100 08/31/19 16:50 75 18 45 08/31/19 16:00 Mechanical Ventilator Mechanical Ventilator Mechanical Ventilator Mechanical Ventilator 08/31/19 16:00 75 20 99/78 (85) 100 08/31/19 16:00 75 08/31/19 16:00 45 08/31/19 15:28 78 18 45 08/31/19 15:00 81 18 115/62 (79) 99 08/31/19 14:00 85 20 149/58 (88) 98 08/31/19 13:52 154/81 08/31/19 13:00 99.2 79 18 140/51 (80) 100 08/31/19 12:53 91 21 45 08/31/19 12:00 79 19 143/44 (77) 100 08/31/19 12:00 73 08/31/19 12:00 45 08/31/19 12:00 Mechanical Ventilator Mechanical Ventilator Mechanical Ventilator Mechanical Ventilator 08/31/19 11:00 83 18 134/59 (84) 100 08/31/19 10:43 76 146/56 08/31/19 10:42 74 16 45 08/31/19 10:00 77 18 144/51 (82) 100 08/31/19 09:53 08/31/19 09:00 69 22 134/45 (74) 100 08/31/19 09:00 69 18 45 Labs: Labs Test 08/30/19 16:41 08/31/19 03:40 08/31/19 20:50 08/31/19 22:45 Arterial Blood pH 7.553 (7.350-7.450) Arterial Blood Partial Pressure CO2 35.7 mmHg (35.0-45.0) Arterial Blood Partial Pressure O2 111.7 mmHg (75.0-100.0) Arterial Blood HCO3 30.7 mmol/L (22.0-26.0) Arterial Blood Oxygen Saturation 97.5 % (95-100) Arterial Blood Base Excess 7.7 (-2-2) Cuauhtemoc Test Positive Sodium Level 148 MMOL/L (136-145) Potassium Level 3.5 MMOL/L (3.5-5.1) Chloride Level 108 MMOL/L (98-107) Carbon Dioxide Level 30 MMOL/L (21-32) Anion Gap 10 mmol/L (5-15) Blood Urea Nitrogen 29 mg/dL (7-18) Creatinine 2.3 MG/DL (0.55-1.30) Estimat Glomerular Filtration Rate 20.5 mL/min (>60) Glucose Level 138 MG/DL (74-106) Uric Acid 4.1 MG/DL (2.6-7.2) Calcium Level 8.7 MG/DL (8.5-10.1) Phosphorus Level 3.0 MG/DL (2.5-4.9) Magnesium Level 2.2 MG/DL (1.8-2.4) Total Bilirubin 0.3 MG/DL (0.2-1.0) Aspartate Amino Transf (AST/SGOT) 531 U/L (15-37) Alanine Aminotransferase (ALT/SGPT) 137 U/L (12-78) Alkaline Phosphatase 120 U/L (46-116) C-Reactive Protein, Quantitative 7.7 mg/dL (0.00-0.90) Pro-B-Type Natriuretic Peptide > 11386 pg/mL (0-125) Total Protein 5.4 G/DL (6.4-8.2) Albumin 2.4 G/DL (3.4-5.0) Globulin 3.0 g/dL Albumin/Globulin Ratio 0.8 (1.0-2.7) White Blood Count 8.4 K/UL (4.8-10.8) 9.0 K/UL (4.8-10.8) Red Blood Count 1.21 M/UL (4.20-5.40) 1.16 M/UL (4.20-5.40) Hemoglobin 3.6 G/DL (12.0-16.0) 3.5 G/DL (12.0-16.0) Hematocrit 11.3 % (37.0-47.0) 10.5 % (37.0-47.0) Mean Corpuscular Volume 93 FL (80-99) 91 FL (80-99) Mean Corpuscular Hemoglobin 29.9 PG (27.0-31.0) 30.5 PG (27.0-31.0) Mean Corpuscular Hemoglobin Concent 31.9 G/DL (32.0-36.0) 33.6 G/DL (32.0-36.0) Red Cell Distribution Width 18.6 % (11.6-14.8) 17.1 % (11.6-14.8) Platelet Count 309 K/UL (150-450) 316 K/UL (150-450) Mean Platelet Volume 6.1 FL (6.5-10.1) 5.2 FL (6.5-10.1) Neutrophils (%) (Auto) % (45.0-75.0) % (45.0-75.0) Lymphocytes (%) (Auto) % (20.0-45.0) % (20.0-45.0) Monocytes (%) (Auto) % (1.0-10.0) % (1.0-10.0) Eosinophils (%) (Auto) % (0.0-3.0) % (0.0-3.0) Basophils (%) (Auto) % (0.0-2.0) % (0.0-2.0) Differential Total Cells Counted 100 100 Neutrophils % (Manual) 78 % (45-75) 70 % (45-75) Lymphocytes % (Manual) 15 % (20-45) 28 % (20-45) Monocytes % (Manual) 4 % (1-10) 2 % (1-10) Eosinophils % (Manual) 1 % (0-3) 0 % (0-3) Basophils % (Manual) 0 % (0-2) 0 % (0-2) Band Neutrophils 2 % (0-8) 0 % (0-8) Platelet Estimate Adequate Adequate Platelet Morphology Normal Normal Hypochromasia 3+ Anisocytosis 3+ Objective: WDWN NAD intubated reduced breath sounds bilaterally with some rhonchi [id number] without MRG NABS nontender no HSM no CCE contractures feeding tube in place no distention poorly responsive nonfocal cachectic reviewed and edited Accucheck: 86 Malcolm Cruz MD Sep 01, 2019 08:26
--- NOTE | 2019-09-01 09:24 | General Progress Note ---
Assessment/Plan Status: stable, not improved, unchanged, deteriorating Assessment/Plan: Assessment/Plan Status: stable, not improved, unchanged, deteriorating Assessment/Plan: Assessment - Severe ulcerative esophagitis on endoscopy - on BID PPI - Resp failure - thrombocytopenia --> resolved - Renal failure - aspiration risk --> s/p PEG - anemia - bradycardia - Poor prognosis Recommendations - hold TF for today - s/p blood transfusion -pending chest CT for hemothorax - elevate HOB - monitor H&H - poor prognosis Subjective ROS Limited/Unobtainable: No Allergies: Coded Allergies: VANCOMYCIN (Unverified Allergy, Unknown, 08/02/19) Subjective s/p blood transfusion Objective Last 24 Hour Vital Signs Date Time Temp Pulse Resp B/P (MAP) Pulse Ox O2 Delivery O2 Flow Rate FiO2 09/01/19 08:25 89 133/73 09/01/19 08:00 97.4 90 18 137/63 (87) 100 91 09/01/19 08:00 Mechanical Ventilator Mechanical Ventilator Mechanical Ventilator Mechanical Ventilator 09/01/19 08:00 45 09/01/19 07:26 87 18 100 Mechanical Ventilator 40 80 18 40 09/01/19 07:00 81 23 164/61 (95) 100 09/01/19 06:30 83 18 09/01/19 06:00 68 18 140/69 (92) 100 09/01/19 05:33 144/55 09/01/19 05:00 73 18 165/71 (102) 100 09/01/19 04:38 88 19 40 09/01/19 04:00 45 09/01/19 04:00 98.6 80 19 134/51 (78) 100 09/01/19 04:00 Mechanical Ventilator Mechanical Ventilator Mechanical Ventilator Mechanical Ventilator 09/01/19 03:15 95 09/01/19 03:00 100 25 129/92 (104) 100 09/01/19 02:45 95 25 138/64 (88) 100 09/01/19 02:30 89 18 130/50 (76) 94 09/01/19 02:24 89 18 100 Mechanical Ventilator 40 86 18 40 09/01/19 02:00 94 22 134/39 (70) 97 09/01/19 01:00 83 19 119/50 (73) 100 09/01/19 00:35 82 18 40 09/01/19 00:00 45 09/01/19 00:00 Mechanical Ventilator Mechanical Ventilator Mechanical Ventilator Mechanical Ventilator 09/01/19 00:00 98.0 87 21 126/51 (76) 99 09/01/19 00:00 87 08/31/19 23:54 121/47 08/31/19 23:15 112 29 136/51 (79) 99 08/31/19 23:00 132 29 162/60 (94) 95 08/31/19 22:51 95 23 98 Mechanical Ventilator 45 08/31/19 22:45 98 30 99 Mechanical Ventilator 45 98 24 45 08/31/19 22:00 73 24 122/53 (76) 100 08/31/19 21:00 77 24 120/51 (74) 100 08/31/19 20:44 77 18 45 08/31/19 20:00 45 08/31/19 20:00 Mechanical Ventilator Mechanical Ventilator Mechanical Ventilator Mechanical Ventilator 08/31/19 20:00 98.2 77 26 125/48 (73) 100 08/31/19 19:29 76 08/31/19 19:21 83 20 100 Mechanical Ventilator 45 81 19 45 08/31/19 19:00 82 20 121/64 (83) 100 08/31/19 18:00 75 21 134/53 (80) 100 08/31/19 18:00 80 117/61 08/31/19 18:00 117/61 08/31/19 17:00 74 19 137/52 (80) 100 08/31/19 16:50 75 18 45 08/31/19 16:00 Mechanical Ventilator Mechanical Ventilator Mechanical Ventilator Mechanical Ventilator 08/31/19 16:00 75 20 99/78 (85) 100 08/31/19 16:00 75 08/31/19 16:00 45 08/31/19 15:28 78 18 45 08/31/19 15:00 81 18 115/62 (79) 99 08/31/19 14:00 85 20 149/58 (88) 98 08/31/19 13:52 154/81 08/31/19 13:00 99.2 79 18 140/51 (80) 100 08/31/19 12:53 91 21 45 08/31/19 12:00 79 19 143/44 (77) 100 08/31/19 12:00 73 08/31/19 12:00 45 08/31/19 12:00 Mechanical Ventilator Mechanical Ventilator Mechanical Ventilator Mechanical Ventilator 08/31/19 11:00 83 18 134/59 (84) 100 08/31/19 10:43 76 146/56 08/31/19 10:42 74 16 45 08/31/19 10:00 77 18 144/51 (82) 100 08/31/19 09:53 Intake and Output 08/31/19 09/01/19 19:00 07:00 Intake Total 580 ml 900 ml Balance 580 ml 900 ml Intake Free Water 140 ml Tube Feeding 420 ml 350 ml Blood Product 500 ml Other 20 ml 50 ml # Voids 1 # Bowel Movements 3 2 Laboratory Tests 08/31/19 20:50: White Blood Count 8.4, Red Blood Count 1.21L, Hemoglobin 3.6*L, Hematocrit 11.3L , Mean Corpuscular Volume 93, Mean Corpuscular Hemoglobin 29.9, Mean Corpuscular Hemoglobin Concent 31.9L, Red Cell Distribution Width 18.6H, Platelet Count 309, Mean Platelet Volume 6.1L, Neutrophils (%) (Auto) , Lymphocytes (%) (Auto) , Monocytes (%) (Auto) , Eosinophils (%) (Auto) , Basophils (%) (Auto) , Differential Total Cells Counted 100, Neutrophils % ( Manual) 78H, Lymphocytes % (Manual) 15L, Monocytes % (Manual) 4, Eosinophils % ( Manual) 1, Basophils % (Manual) 0, Band Neutrophils 2, Platelet Estimate Adequate, Platelet Morphology Normal, Hypochromasia 3+, Anisocytosis 3+ 08/31/19 22:45: White Blood Count 9.0, Red Blood Count 1.16L, Hemoglobin 3.5*L, Hematocrit 10.5L , Mean Corpuscular Volume 91, Mean Corpuscular Hemoglobin 30.5, Mean Corpuscular Hemoglobin Concent 33.6, Red Cell Distribution Width 17.1H, Platelet Count 316, Mean Platelet Volume 5.2L, Neutrophils (%) (Auto) , Lymphocytes (%) (Auto) , Monocytes (%) (Auto) , Eosinophils (%) (Auto) , Basophils (%) (Auto) , Differential Total Cells Counted 100, Neutrophils % ( Manual) 70, Lymphocytes % (Manual) 28, Monocytes % (Manual) 2, Eosinophils % ( Manual) 0, Basophils % (Manual) 0, Band Neutrophils 0, Platelet Estimate Adequate, Platelet Morphology Normal Height (Feet): 5 Height (Inches): 4.00 Weight (Pounds): 114 General Appearance: lethargic EENT: normal ENT inspection Neck: supple Cardiovascular: tachycardia Respiratory/Chest: decreased breath sounds Abdomen: normal bowel sounds, non tender, soft Extremities: non-tender Kenny Rudolph MD Sep 01, 2019 09:24
--- NOTE | 2019-09-01 10:43 | General Progress Note ---
Assessment/Plan Problem List: (1) Failure to thrive (0-17) ICD Codes: R62.51 - Failure to thrive (0-17) SNOMED: 964242492 (2) Hypertensive kidney disease ICD Codes: I12.9 - Hypertensive chronic kidney disease with stage 1 through stage 4 chronic kidney disease, or unspecified chronic kidney disease SNOMED: 48633909 (3) Pneumonia ICD Codes: J18.9 - Pneumonia, unspecified organism SNOMED: 228280418 Qualifiers: Qualified Codes: J18.9 - Pneumonia, unspecified organism (4) ESRD (end stage renal disease) ICD Codes: N18.6 - End stage renal disease SNOMED: 05156595 (5) Septic arthritis ICD Codes: M00.9 - Pyogenic arthritis, unspecified SNOMED: 579587973 (6) Thrombocytopenia ICD Codes: D69.6 - Thrombocytopenia, unspecified SNOMED: 119472602 (7) Hypotension ICD Codes: I95.9 - Hypotension, unspecified SNOMED: 67811991 Qualifiers: Qualified Codes: I95.3 - Hypotension of hemodialysis (8) Malnutrition ICD Codes: E46 - Unspecified protein-calorie malnutrition SNOMED: 93663437 Status: stable, not improved, unchanged, deteriorating Assessment/Plan: cont resp care chest pt/suctioning resp rx check cbc transfuse as needed check chest ct cont weaning- try simv monitor plts iv PPI iv abx HD bp rx critical and guarded tube feeds per gi will d/w family trach vs terminal extubation Subjective ROS Limited/Unobtainable: Yes Constitutional: Reports: malaise, weakness HEENT: Reports: no symptoms Cardiovascular: Reports: no symptoms Respiratory: Reports: cough, shortness of breath Gastrointestinal/Abdominal: Reports: difficulty swallowing Genitourinary: Reports: no symptoms Neurologic/Psychiatric: Reports: anxiety Endocrine: Reports: no symptoms Hematologic/Lymphatic: Reports: no symptoms Allergies: Coded Allergies: VANCOMYCIN (Unverified Allergy, Unknown, 08/02/19) All Systems: reviewed and negative except above Subjective decrease h/h noted. no bleeding. ?hemothorax. on the vent. awake and alert. no fever or chills. currently receiving 3rd unit of blood Objective Last 24 Hour Vital Signs Date Time Temp Pulse Resp B/P (MAP) Pulse Ox O2 Delivery O2 Flow Rate FiO2 09/01/19 10:00 88 26 144/66 (92) 100 09/01/19 09:41 100 09/01/19 09:00 83 22 112/97 (102) 100 09/01/19 09:00 88 27 40 09/01/19 08:25 89 133/73 09/01/19 08:00 97.4 90 18 137/63 (87) 100 91 09/01/19 08:00 Mechanical Ventilator Mechanical Ventilator Mechanical Ventilator Mechanical Ventilator 09/01/19 08:00 45 09/01/19 07:30 81 09/01/19 07:26 87 18 100 Mechanical Ventilator 40 80 18 40 09/01/19 07:00 81 23 164/61 (95) 100 09/01/19 06:30 83 18 09/01/19 06:00 68 18 140/69 (92) 100 09/01/19 05:33 144/55 09/01/19 05:00 73 18 165/71 (102) 100 09/01/19 04:38 88 19 40 09/01/19 04:00 45 09/01/19 04:00 98.6 80 19 134/51 (78) 100 09/01/19 04:00 Mechanical Ventilator Mechanical Ventilator Mechanical Ventilator Mechanical Ventilator 09/01/19 03:15 95 09/01/19 03:00 100 25 129/92 (104) 100 09/01/19 02:45 95 25 138/64 (88) 100 09/01/19 02:30 89 18 130/50 (76) 94 09/01/19 02:24 89 18 100 Mechanical Ventilator 40 86 18 40 09/01/19 02:00 94 22 134/39 (70) 97 09/01/19 01:00 83 19 119/50 (73) 100 09/01/19 00:35 82 18 40 09/01/19 00:00 45 09/01/19 00:00 Mechanical Ventilator Mechanical Ventilator Mechanical Ventilator Mechanical Ventilator 09/01/19 00:00 98.0 87 21 126/51 (76) 99 09/01/19 00:00 87 08/31/19 23:54 121/47 08/31/19 23:15 112 29 136/51 (79) 99 08/31/19 23:00 132 29 162/60 (94) 95 08/31/19 22:51 95 23 98 Mechanical Ventilator 45 08/31/19 22:45 98 30 99 Mechanical Ventilator 45 98 24 45 08/31/19 22:00 73 24 122/53 (76) 100 08/31/19 21:00 77 24 120/51 (74) 100 08/31/19 20:44 77 18 45 08/31/19 20:00 45 08/31/19 20:00 Mechanical Ventilator Mechanical Ventilator Mechanical Ventilator Mechanical Ventilator 08/31/19 20:00 98.2 77 26 125/48 (73) 100 08/31/19 19:29 76 08/31/19 19:21 83 20 100 Mechanical Ventilator 45 81 19 45 08/31/19 19:00 82 20 121/64 (83) 100 08/31/19 18:00 75 21 134/53 (80) 100 08/31/19 18:00 80 117/61 08/31/19 18:00 117/61 08/31/19 17:00 74 19 137/52 (80) 100 08/31/19 16:50 75 18 45 08/31/19 16:00 Mechanical Ventilator Mechanical Ventilator Mechanical Ventilator Mechanical Ventilator 08/31/19 16:00 75 20 99/78 (85) 100 08/31/19 16:00 75 08/31/19 16:00 45 08/31/19 15:28 78 18 45 08/31/19 15:00 81 18 115/62 (79) 99 08/31/19 14:00 85 20 149/58 (88) 98 08/31/19 13:52 154/81 08/31/19 13:00 99.2 79 18 140/51 (80) 100 08/31/19 12:53 91 21 45 08/31/19 12:00 79 19 143/44 (77) 100 08/31/19 12:00 73 08/31/19 12:00 45 08/31/19 12:00 Mechanical Ventilator Mechanical Ventilator Mechanical Ventilator Mechanical Ventilator 08/31/19 11:00 83 18 134/59 (84) 100 08/31/19 10:43 76 146/56 08/31/19 10:42 74 16 45 Intake and Output 08/31/19 09/01/19 19:00 07:00 Intake Total 580 ml 900 ml Balance 580 ml 900 ml Intake Free Water 140 ml Tube Feeding 420 ml 350 ml Blood Product 500 ml Other 20 ml 50 ml # Voids 1 # Bowel Movements 3 2 Laboratory Tests 08/31/19 20:50: White Blood Count 8.4, Red Blood Count 1.21L, Hemoglobin 3.6*L, Hematocrit 11.3L , Mean Corpuscular Volume 93, Mean Corpuscular Hemoglobin 29.9, Mean Corpuscular Hemoglobin Concent 31.9L, Red Cell Distribution Width 18.6H, Platelet Count 309, Mean Platelet Volume 6.1L, Neutrophils (%) (Auto) , Lymphocytes (%) (Auto) , Monocytes (%) (Auto) , Eosinophils (%) (Auto) , Basophils (%) (Auto) , Differential Total Cells Counted 100, Neutrophils % ( Manual) 78H, Lymphocytes % (Manual) 15L, Monocytes % (Manual) 4, Eosinophils % ( Manual) 1, Basophils % (Manual) 0, Band Neutrophils 2, Platelet Estimate Adequate, Platelet Morphology Normal, Hypochromasia 3+, Anisocytosis 3+ 08/31/19 22:45: White Blood Count 9.0, Red Blood Count 1.16L, Hemoglobin 3.5*L, Hematocrit 10.5L , Mean Corpuscular Volume 91, Mean Corpuscular Hemoglobin 30.5, Mean Corpuscular Hemoglobin Concent 33.6, Red Cell Distribution Width 17.1H, Platelet Count 316, Mean Platelet Volume 5.2L, Neutrophils (%) (Auto) , Lymphocytes (%) (Auto) , Monocytes (%) (Auto) , Eosinophils (%) (Auto) , Basophils (%) (Auto) , Differential Total Cells Counted 100, Neutrophils % ( Manual) 70, Lymphocytes % (Manual) 28, Monocytes % (Manual) 2, Eosinophils % ( Manual) 0, Basophils % (Manual) 0, Band Neutrophils 0, Platelet Estimate Adequate, Platelet Morphology Normal Height (Feet): 5 Height (Inches): 4.00 Weight (Pounds): 112 Objective General Appearance: WD/WN, awake/moaning. orally intubated Neck: supple Cardiovascular: normal rate Respiratory/Chest: rhonchi - bilaterally Abdomen: normal bowel sounds, non tender, soft, no organomegaly Edema: no edema noted Arm (L), no edema noted Arm (R), no edema noted Leg (L), no edema noted Leg (R), no edema noted Pedal (L), no edema noted Pedal (R), no edema noted Generalized Neurologic: disoriented, aphasia Uomoto,Nate M. MD Sep 01, 2019 10:43
--- NOTE | 2019-09-01 10:52 | Surgery Progress Note ---
Surgery Progress Note Subjective Procedure Performed Right Femoral Temporary Hemodialysis catheter Insertion Additional Comments cxr noted after thora large fluid collection. anemia. transfused prbc. likely hemothorax she is ill appearing prbc x3 units pending chest CT Objective Last 24 Hour Vital Signs Date Time Temp Pulse Resp B/P (MAP) Pulse Ox O2 Delivery O2 Flow Rate FiO2 09/01/19 10:00 88 26 144/66 (92) 100 09/01/19 09:41 100 09/01/19 09:00 83 22 112/97 (102) 100 09/01/19 09:00 88 27 40 09/01/19 08:25 89 133/73 09/01/19 08:00 97.4 90 18 137/63 (87) 100 91 09/01/19 08:00 Mechanical Ventilator Mechanical Ventilator Mechanical Ventilator Mechanical Ventilator 09/01/19 08:00 45 09/01/19 07:30 81 09/01/19 07:26 87 18 100 Mechanical Ventilator 40 80 18 40 09/01/19 07:00 81 23 164/61 (95) 100 09/01/19 06:30 83 18 09/01/19 06:00 68 18 140/69 (92) 100 09/01/19 05:33 144/55 09/01/19 05:00 73 18 165/71 (102) 100 09/01/19 04:38 88 19 40 09/01/19 04:00 45 09/01/19 04:00 98.6 80 19 134/51 (78) 100 09/01/19 04:00 Mechanical Ventilator Mechanical Ventilator Mechanical Ventilator Mechanical Ventilator 09/01/19 03:15 95 09/01/19 03:00 100 25 129/92 (104) 100 09/01/19 02:45 95 25 138/64 (88) 100 09/01/19 02:30 89 18 130/50 (76) 94 09/01/19 02:24 89 18 100 Mechanical Ventilator 40 86 18 40 09/01/19 02:00 94 22 134/39 (70) 97 09/01/19 01:00 83 19 119/50 (73) 100 09/01/19 00:35 82 18 40 09/01/19 00:00 45 09/01/19 00:00 Mechanical Ventilator Mechanical Ventilator Mechanical Ventilator Mechanical Ventilator 09/01/19 00:00 98.0 87 21 126/51 (76) 99 09/01/19 00:00 87 08/31/19 23:54 121/47 08/31/19 23:15 112 29 136/51 (79) 99 08/31/19 23:00 132 29 162/60 (94) 95 08/31/19 22:51 95 23 98 Mechanical Ventilator 45 08/31/19 22:45 98 30 99 Mechanical Ventilator 45 98 24 45 08/31/19 22:00 73 24 122/53 (76) 100 08/31/19 21:00 77 24 120/51 (74) 100 08/31/19 20:44 77 18 45 08/31/19 20:00 45 08/31/19 20:00 Mechanical Ventilator Mechanical Ventilator Mechanical Ventilator Mechanical Ventilator 08/31/19 20:00 98.2 77 26 125/48 (73) 100 08/31/19 19:29 76 08/31/19 19:21 83 20 100 Mechanical Ventilator 45 81 19 45 08/31/19 19:00 82 20 121/64 (83) 100 08/31/19 18:00 75 21 134/53 (80) 100 08/31/19 18:00 80 117/61 08/31/19 18:00 117/61 08/31/19 17:00 74 19 137/52 (80) 100 08/31/19 16:50 75 18 45 08/31/19 16:00 Mechanical Ventilator Mechanical Ventilator Mechanical Ventilator Mechanical Ventilator 08/31/19 16:00 75 20 99/78 (85) 100 08/31/19 16:00 75 08/31/19 16:00 45 08/31/19 15:28 78 18 45 08/31/19 15:00 81 18 115/62 (79) 99 08/31/19 14:00 85 20 149/58 (88) 98 08/31/19 13:52 154/81 08/31/19 13:00 99.2 79 18 140/51 (80) 100 08/31/19 12:53 91 21 45 08/31/19 12:00 79 19 143/44 (77) 100 08/31/19 12:00 73 08/31/19 12:00 45 08/31/19 12:00 Mechanical Ventilator Mechanical Ventilator Mechanical Ventilator Mechanical Ventilator 08/31/19 11:00 83 18 134/59 (84) 100 I&O Intake and Output 08/31/19 09/01/19 19:00 07:00 Intake Total 580 ml 900 ml Balance 580 ml 900 ml Intake Free Water 140 ml Tube Feeding 420 ml 350 ml Blood Product 500 ml Other 20 ml 50 ml # Voids 1 # Bowel Movements 3 2 Cardiovascular: RSR Respiratory: decreased breath sounds, other Abdomen: soft, non-tender, present bowel sounds, non-distended Extremities: no tenderness, no cyanosis Laboratory Tests Test 08/31/19 20:50 08/31/19 22:45 09/01/19 10:35 White Blood Count 8.4 K/UL (4.8-10.8) 9.0 K/UL (4.8-10.8) Pending Red Blood Count 1.21 M/UL (4.20-5.40) L 1.16 M/UL (4.20-5.40) L Pending Hemoglobin 3.6 G/DL (12.0-16.0) *L 3.5 G/DL (12.0-16.0) *L Pending Hematocrit 11.3 % (37.0-47.0) L 10.5 % (37.0-47.0) L Pending Mean Corpuscular Volume 93 FL (80-99) 91 FL (80-99) Pending Mean Corpuscular Hemoglobin 29.9 PG (27.0-31.0) 30.5 PG (27.0-31.0) Pending Mean Corpuscular Hemoglobin Concent 31.9 G/DL (32.0-36.0) L 33.6 G/DL (32.0-36.0) Pending Red Cell Distribution Width 18.6 % (11.6-14.8) H 17.1 % (11.6-14.8) H Pending Platelet Count 309 K/UL (150-450) 316 K/UL (150-450) Pending Mean Platelet Volume 6.1 FL (6.5-10.1) L 5.2 FL (6.5-10.1) L Pending Neutrophils (%) (Auto) % (45.0-75.0) % (45.0-75.0) Pending Lymphocytes (%) (Auto) % (20.0-45.0) % (20.0-45.0) Pending Monocytes (%) (Auto) % (1.0-10.0) % (1.0-10.0) Pending Eosinophils (%) (Auto) % (0.0-3.0) % (0.0-3.0) Pending Basophils (%) (Auto) % (0.0-2.0) % (0.0-2.0) Pending Differential Total Cells Counted 100 100 Neutrophils % (Manual) 78 % (45-75) H 70 % (45-75) Lymphocytes % (Manual) 15 % (20-45) L 28 % (20-45) Monocytes % (Manual) 4 % (1-10) 2 % (1-10) Eosinophils % (Manual) 1 % (0-3) 0 % (0-3) Basophils % (Manual) 0 % (0-2) 0 % (0-2) Band Neutrophils 2 % (0-8) 0 % (0-8) Platelet Estimate Adequate Adequate Platelet Morphology Normal Normal Hypochromasia 3+ Anisocytosis 3+ Assessment Post-op Diagnosis same Plan Problems: (1) Malnutrition Assessment & Plan: DAILY ESTIMATED NEEDS: Needs based on ESRD+ HD, underweight, wound/ 39.5kg 35-40 kcals/kg 1955-7353 total kcals 1.25-1.8 g protein/kg 49-71 g total protein 20-22 mL/kg 790-869 total fluid mLs NUTRITION DIAGNOSIS: * Increased kcal and protein needs r/t underweight status, HD needs, wuond healing as evidenced by pt is underweight per guidelines, ESRD, on HD, admitted non-blanching erythema wounds @ BL heels and sacrum * Swallowing difficulty R/T dysphagia as evidenced by BOX WORKER recommends temporary nonoral feeding at this time, s/p NGT insertion, on NGT feeding-> now s/p self removal, NPO. CURRENT TF:NPO PO DIET RECOMMENDATIONS: WHEN SAFE FOR ORAL DIET -> renal/ texture per BOX WORKER ENTERAL NUTRITION RECOMMENDATIONS: W/ GI access: Nepro @ 35ml/hr x 22 hrs to provide 770ml, 1386kcal, 62g prot, 560ml free water * W/ GI access, resume TF on Nepro * Initiate Nepro @ 15ml/hr x 6 hrs, advance 10ml q 4-6 hrs as tolerated to goal rate. * Hold 1 hour before and after Synthroid med * HOB over 30 degrees/ water flush per MD. ADDITIONAL RECOMMENDATIONS: 1) Calibrated bed scale wt for accurate CBW -> daily wt monitoring Per HD record: dry wt on 07/30=39.5kg (87lbs) 2) Wound care: (W/ GI access) add Nephorivte x 1 + Balta BID 3) Monitor NPO status: without GI access at this time, s/p pulling out NGT 4) Monitor for hypoglycemia while NPO 5) Monitor for continuity of HD (2) Septic arthritis Assessment & Plan: Pt presented on admission with generalized scaly rash . pt noted to be restless and scratching at skin. Bleeding from oral mucosa noted. Joint deformity noted to R shoulder. Surgical incision approximated with 11 sutures. Erythema but no exudate,or elevation in skin temp at site of incision. Historical incision R hip that is tunneled.Small amt seropurulent exudate noted. Periwound is erythematous,but no elevation in skin temp noted. No odor noted. Non-blanching erythema noted to sacrum. Perianal area is erythematous and excoriated. L heel is boggy with non-blanching erythema. R heel is soft with non-blanching erythema. No evidence of skin breakdown to all other bony prominences. Tx.plan: Cover R shoulder with Drsg and change daily and prn. Cleanse R hip wound with Saline. Apply Therahoney.Apply Cavilon Skin Barrier periwound. Cover with Optifoam drsg. Change every 3 days and prn. Apply Moisture Barrier Paste to perianal area and buttocks. Cover Sacrum with Optifoam drsg. Change every 3 days and prn. Apply Cavilon Skin Barrier to both heels. Cover each heel with Optifoam drsg. Change every 7 days and prn. APM/ELVIA Mattress overlay. Reposition at least every 2hours or as tolerated. Off-load heels with pillow. HD cath necessary HD as renal likely will need intubation (3) Wound, open, hip or thigh with complication Assessment & Plan: slow healing will need nutritional optimization difficult ng tube peg when stable sutures removed from right shoulder comfortable wean vent may need trach (4) Abscess of right hip (5) possible septic arthritis (6) Renal failure (ARF), acute on chronic Assessment & Plan: cont HD will need tunneled cath placement okay to use fem line for now but will need change soon. line monitored and clean dressings going well (7) Pneumonia Assessment & Plan: intubated on vent support not tolerating weaning may need trach hemothorax likely after thoracentesis pending chest CT chest tube can be considered but overall prognosis is very poor Camilo James Sep 01, 2019 10:52
--- NOTE | 2019-09-01 10:54 | Nephrology Progress Note ---
Assessment/Plan Problem List: (1) ESRD (end stage renal disease) on dialysis (2) Malnutrition (3) Anemia in CKD (chronic kidney disease) (4) Hypotension (5) Thrombocytopenia (6) Sepsis Assessment: klebsiella in blood Assessment -Early sepsis with shock. -Healthcare-associated pneumonia. -Severe protein-calorie malnutrition. -Thrombocytopenia. - End-stage renal disease. - History of hypertension. - Bradycardia. - HypoThyroid Plan Patient transfused 3 units of packed RBCs for low hemoglobin Remains full code Last dialysis August 29 next dialysis as needed Due to her overall medical condition I favor DNR and comfort care Blood pressure fluctuating, will start hydralazine via NG tube for blood pressure Magnesium and potassium supplement intravenously as needed Patient underwent PEG placement August 16 patient remains intubated on ventilator Discussed with RN Aim to wean from ventilator or consider tracheostomy Permacath was removed on August 12 Dialysis 08/11 Transfusion as needed Patient had hematemesis meds IV as possible Surveillance blood cultures tomorrow Plan to put the permacath back in on Thursday if cultures are negative keep BP and BS in check Inflammatory markers per orders Subjective ROS Limited/Unobtainable: Yes Objective Objective Last 24 Hour Vital Signs Date Time Temp Pulse Resp B/P (MAP) Pulse Ox O2 Delivery O2 Flow Rate FiO2 09/01/19 10:00 88 26 144/66 (92) 100 09/01/19 09:41 100 09/01/19 09:00 83 22 112/97 (102) 100 09/01/19 09:00 88 27 40 09/01/19 08:25 89 133/73 09/01/19 08:00 97.4 90 18 137/63 (87) 100 91 09/01/19 08:00 Mechanical Ventilator Mechanical Ventilator Mechanical Ventilator Mechanical Ventilator 09/01/19 08:00 45 09/01/19 07:30 81 09/01/19 07:26 87 18 100 Mechanical Ventilator 40 80 18 40 09/01/19 07:00 81 23 164/61 (95) 100 09/01/19 06:30 83 18 09/01/19 06:00 68 18 140/69 (92) 100 09/01/19 05:33 144/55 09/01/19 05:00 73 18 165/71 (102) 100 09/01/19 04:38 88 19 40 09/01/19 04:00 45 09/01/19 04:00 98.6 80 19 134/51 (78) 100 09/01/19 04:00 Mechanical Ventilator Mechanical Ventilator Mechanical Ventilator Mechanical Ventilator 09/01/19 03:15 95 09/01/19 03:00 100 25 129/92 (104) 100 09/01/19 02:45 95 25 138/64 (88) 100 09/01/19 02:30 89 18 130/50 (76) 94 09/01/19 02:24 89 18 100 Mechanical Ventilator 40 86 18 40 09/01/19 02:00 94 22 134/39 (70) 97 09/01/19 01:00 83 19 119/50 (73) 100 09/01/19 00:35 82 18 40 09/01/19 00:00 45 09/01/19 00:00 Mechanical Ventilator Mechanical Ventilator Mechanical Ventilator Mechanical Ventilator 09/01/19 00:00 98.0 87 21 126/51 (76) 99 09/01/19 00:00 87 08/31/19 23:54 121/47 08/31/19 23:15 112 29 136/51 (79) 99 08/31/19 23:00 132 29 162/60 (94) 95 08/31/19 22:51 95 23 98 Mechanical Ventilator 45 08/31/19 22:45 98 30 99 Mechanical Ventilator 45 98 24 45 08/31/19 22:00 73 24 122/53 (76) 100 08/31/19 21:00 77 24 120/51 (74) 100 08/31/19 20:44 77 18 45 08/31/19 20:00 45 08/31/19 20:00 Mechanical Ventilator Mechanical Ventilator Mechanical Ventilator Mechanical Ventilator 08/31/19 20:00 98.2 77 26 125/48 (73) 100 08/31/19 19:29 76 08/31/19 19:21 83 20 100 Mechanical Ventilator 45 81 19 45 08/31/19 19:00 82 20 121/64 (83) 100 08/31/19 18:00 75 21 134/53 (80) 100 08/31/19 18:00 80 117/61 20 18:00 117/61 08/31/19 17:00 74 19 137/52 (80) 100 08/31/19 16:50 75 18 45 08/31/19 16:00 Mechanical Ventilator Mechanical Ventilator Mechanical Ventilator Mechanical Ventilator 08/31/19 16:00 75 20 99/78 (85) 100 08/31/19 16:00 75 08/31/19 16:00 45 08/31/19 15:28 78 18 45 08/31/19 15:00 81 18 115/62 (79) 99 08/31/19 14:00 85 20 149/58 (88) 98 08/31/19 13:52 154/81 08/31/19 13:00 99.2 79 18 140/51 (80) 100 08/31/19 12:53 91 21 45 08/31/19 12:00 79 19 143/44 (77) 100 08/31/19 12:00 73 08/31/19 12:00 45 08/31/19 12:00 Mechanical Ventilator Mechanical Ventilator Mechanical Ventilator Mechanical Ventilator 08/31/19 11:00 83 18 134/59 (84) 100 Intake and Output 08/31/19 09/01/19 19:00 07:00 Intake Total 580 ml 900 ml Balance 580 ml 900 ml Intake Free Water 140 ml Tube Feeding 420 ml 350 ml Blood Product 500 ml Other 20 ml 50 ml # Voids 1 # Bowel Movements 3 2 Laboratory Tests 08/31/19 20:50: White Blood Count 8.4, Red Blood Count 1.21L, Hemoglobin 3.6*L, Hematocrit 11.3L , Mean Corpuscular Volume 93, Mean Corpuscular Hemoglobin 29.9, Mean Corpuscular Hemoglobin Concent 31.9L, Red Cell Distribution Width 18.6H, Platelet Count 309, Mean Platelet Volume 6.1L, Neutrophils (%) (Auto) , Lymphocytes (%) (Auto) , Monocytes (%) (Auto) , Eosinophils (%) (Auto) , Basophils (%) (Auto) , Differential Total Cells Counted 100, Neutrophils % ( Manual) 78H, Lymphocytes % (Manual) 15L, Monocytes % (Manual) 4, Eosinophils % ( Manual) 1, Basophils % (Manual) 0, Band Neutrophils 2, Platelet Estimate Adequate, Platelet Morphology Normal, Hypochromasia 3+, Anisocytosis 3+ 08/31/19 22:45: White Blood Count 9.0, Red Blood Count 1.16L, Hemoglobin 3.5*L, Hematocrit 10.5L , Mean Corpuscular Volume 91, Mean Corpuscular Hemoglobin 30.5, Mean Corpuscular Hemoglobin Concent 33.6, Red Cell Distribution Width 17.1H, Platelet Count 316, Mean Platelet Volume 5.2L, Neutrophils (%) (Auto) , Lymphocytes (%) (Auto) , Monocytes (%) (Auto) , Eosinophils (%) (Auto) , Basophils (%) (Auto) , Differential Total Cells Counted 100, Neutrophils % ( Manual) 70, Lymphocytes % (Manual) 28, Monocytes % (Manual) 2, Eosinophils % ( Manual) 0, Basophils % (Manual) 0, Band Neutrophils 0, Platelet Estimate Adequate, Platelet Morphology Normal 09/01/19 10:35: White Blood Count [Pending], Red Blood Count [Pending], Hemoglobin [Pending], Hematocrit [Pending], Mean Corpuscular Volume [Pending], Mean Corpuscular Hemoglobin [Pending], Mean Corpuscular Hemoglobin Concent [Pending], Red Cell Distribution Width [Pending], Platelet Count [Pending], Mean Platelet Volume [ Pending], Neutrophils (%) (Auto) [Pending], Lymphocytes (%) (Auto) [Pending], Monocytes (%) (Auto) [Pending], Eosinophils (%) (Auto) [Pending], Basophils (%) (Auto) [Pending] Height (Feet): 5 Height (Inches): 4.00 Weight (Pounds): 112 General Appearance: no apparent distress EENT: other - Vented Cardiovascular: tachycardia Respiratory/Chest: decreased breath sounds Abdomen: soft Objective no change William Blackwood MD Sep 01, 2019 10:54
[2019-09-01 10:59] LABS: BASOPHILS % (AUTO) 0.5 % (0.0-2.0); EOSINOPHILS % (AUTO) 0.4 % (0.0-3.0); HEMATOCRIT 27.4 % (37.0-47.0); HEMOGLOBIN 9.1 G/DL (12.0-16.0); MEAN CORPUSCULAR VOLUME 90 FL (80-99); MONOCYTES % (AUTO) 3.4 % (1.0-10.0); NEUTROPHILS % (AUTO) 75.7 % (45.0-75.0); PLATELET COUNT 263 K/UL (150-450); RED BLOOD COUNT 3.04 M/UL (4.20-5.40); RED CELL DISTRIBUTION WIDTH 16.1 % (11.6-14.8)
--- NOTE | 2019-09-01 12:12 | Infectious Diseases Prog Note ---
Assessment/Plan Assessment/Plan A; 1. Hailee sepsis treated 2. Klebsiella sepsis , treated 3. Right shoulder septic arthritis, status post surgery. 4. Diabetes. 5. Hypertension. 6. Anemia 7. Thrombocytopenia improving 9. Atelectasis , left lung collapse 10. Pleural effusion 11. Ulcerative esophagitis PLAN: 1. Observe off antibiotic 3. Poor prognosis Subjective ROS Limited/Unobtainable: Yes Constitutional: Denies: fever Neurologic: Reports: confusion, other - on restraint Allergies: Coded Allergies: VANCOMYCIN (Unverified Allergy, Unknown, 08/02/19) Objective Vital Signs Last 24 Hour Vital Signs Date Time Temp Pulse Resp B/P (MAP) Pulse Ox O2 Delivery O2 Flow Rate FiO2 09/01/19 12:00 98.5 76 18 140/67 (91) 100 09/01/19 12:00 45 09/01/19 12:00 76 18 100 Mechanical Ventilator 40 75 18 40 09/01/19 12:00 Mechanical Ventilator Mechanical Ventilator Mechanical Ventilator Mechanical Ventilator 09/01/19 11:19 68 09/01/19 11:09 142/59 09/01/19 11:00 71 18 144/58 (86) 100 09/01/19 10:00 88 26 144/66 (92) 100 09/01/19 09:41 100 09/01/19 09:00 83 22 112/97 (102) 100 09/01/19 09:00 88 27 40 09/01/19 08:25 89 133/73 09/01/19 08:00 97.4 90 18 137/63 (87) 100 91 09/01/19 08:00 Mechanical Ventilator Mechanical Ventilator Mechanical Ventilator Mechanical Ventilator 09/01/19 08:00 45 09/01/19 07:30 81 09/01/19 07:26 87 18 100 Mechanical Ventilator 40 80 18 40 09/01/19 07:00 81 23 164/61 (95) 100 09/01/19 06:30 83 18 09/01/19 06:00 68 18 140/69 (92) 100 09/01/19 05:33 144/55 09/01/19 05:00 73 18 165/71 (102) 100 09/01/19 04:38 88 19 40 09/01/19 04:00 45 09/01/19 04:00 98.6 80 19 134/51 (78) 100 09/01/19 04:00 Mechanical Ventilator Mechanical Ventilator Mechanical Ventilator Mechanical Ventilator 09/01/19 03:15 95 09/01/19 03:00 100 25 129/92 (104) 100 09/01/19 02:45 95 25 138/64 (88) 100 09/01/19 02:30 89 18 130/50 (76) 94 09/01/19 02:24 89 18 100 Mechanical Ventilator 40 86 18 40 09/01/19 02:00 94 22 134/39 (70) 97 09/01/19 01:00 83 19 119/50 (73) 100 09/01/19 00:35 82 18 40 09/01/19 00:00 45 09/01/19 00:00 Mechanical Ventilator Mechanical Ventilator Mechanical Ventilator Mechanical Ventilator 09/01/19 00:00 98.0 87 21 126/51 (76) 99 09/01/19 00:00 87 08/31/19 23:54 121/47 08/31/19 23:15 112 29 136/51 (79) 99 08/31/19 23:00 132 29 162/60 (94) 95 08/31/19 22:51 95 23 98 Mechanical Ventilator 45 08/31/19 22:45 98 30 99 Mechanical Ventilator 45 98 24 45 08/31/19 22:00 73 24 122/53 (76) 100 08/31/19 21:00 77 24 120/51 (74) 100 08/31/19 20:44 77 18 45 08/31/19 20:00 45 08/31/19 20:00 Mechanical Ventilator Mechanical Ventilator Mechanical Ventilator Mechanical Ventilator 08/31/19 20:00 98.2 77 26 125/48 (73) 100 08/31/19 19:29 76 08/31/19 19:21 83 20 100 Mechanical Ventilator 45 81 19 45 08/31/19 19:00 82 20 121/64 (83) 100 08/31/19 18:00 75 21 134/53 (80) 100 08/31/19 18:00 80 117/61 08/31/19 18:00 117/61 08/31/19 17:00 74 19 137/52 (80) 100 08/31/19 16:50 75 18 45 08/31/19 16:00 Mechanical Ventilator Mechanical Ventilator Mechanical Ventilator Mechanical Ventilator 08/31/19 16:00 75 20 99/78 (85) 100 08/31/19 16:00 75 08/31/19 16:00 45 08/31/19 15:28 78 18 45 08/31/19 15:00 81 18 115/62 (79) 99 08/31/19 14:00 85 20 149/58 (88) 98 08/31/19 13:52 154/81 08/31/19 13:00 99.2 79 18 140/51 (80) 100 08/31/19 12:53 91 21 45 Height (Feet): 5 Height (Inches): 4.00 Weight (Pounds): 112 HEENT: mucous membranes moist Respiratory/Chest: decreased breath sounds, other - on ventilator Cardiovascular: normal rate Abdomen: soft, non tender, other - GT feeding Extremities: other - hands edema Neurologic/Psychiatric: unresponsiveness Laboratory Tests Test 08/31/19 20:50 08/31/19 22:45 09/01/19 10:35 White Blood Count 8.4 K/UL (4.8-10.8) 9.0 K/UL (4.8-10.8) 9.0 K/UL (4.8-10.8) Red Blood Count 1.21 M/UL (4.20-5.40) L 1.16 M/UL (4.20-5.40) L 3.04 M/UL (4.20-5.40) L Hemoglobin 3.6 G/DL (12.0-16.0) *L 3.5 G/DL (12.0-16.0) *L 9.1 G/DL (12.0-16.0) #L Hematocrit 11.3 % (37.0-47.0) L 10.5 % (37.0-47.0) L 27.4 % (37.0-47.0) #L Mean Corpuscular Volume 93 FL (80-99) 91 FL (80-99) 90 FL (80-99) Mean Corpuscular Hemoglobin 29.9 PG (27.0-31.0) 30.5 PG (27.0-31.0) 30.0 PG (27.0-31.0) Mean Corpuscular Hemoglobin Concent 31.9 G/DL (32.0-36.0) L 33.6 G/DL (32.0-36.0) 33.3 G/DL (32.0-36.0) Red Cell Distribution Width 18.6 % (11.6-14.8) H 17.1 % (11.6-14.8) H 16.1 % (11.6-14.8) H Platelet Count 309 K/UL (150-450) 316 K/UL (150-450) 263 K/UL (150-450) Mean Platelet Volume 6.1 FL (6.5-10.1) L 5.2 FL (6.5-10.1) L 6.2 FL (6.5-10.1) L Neutrophils (%) (Auto) % (45.0-75.0) % (45.0-75.0) 75.7 % (45.0-75.0) H Lymphocytes (%) (Auto) % (20.0-45.0) % (20.0-45.0) 20.0 % (20.0-45.0) Monocytes (%) (Auto) % (1.0-10.0) % (1.0-10.0) 3.4 % (1.0-10.0) Eosinophils (%) (Auto) % (0.0-3.0) % (0.0-3.0) 0.4 % (0.0-3.0) Basophils (%) (Auto) % (0.0-2.0) % (0.0-2.0) 0.5 % (0.0-2.0) Differential Total Cells Counted 100 100 Neutrophils % (Manual) 78 % (45-75) H 70 % (45-75) Lymphocytes % (Manual) 15 % (20-45) L 28 % (20-45) Monocytes % (Manual) 4 % (1-10) 2 % (1-10) Eosinophils % (Manual) 1 % (0-3) 0 % (0-3) Basophils % (Manual) 0 % (0-2) 0 % (0-2) Band Neutrophils 2 % (0-8) 0 % (0-8) Platelet Estimate Adequate Adequate Platelet Morphology Normal Normal Hypochromasia 3+ Anisocytosis 3+ Current Medications Medications (Trade) Dose Ordered Sig/Javier Route PRN Reason Start Time Stop Time Status Last Admin Dose Admin Acetylcysteine (Mucomyst) 100 mg Q4HRT N 08/31/19 19:00 11/29/19 18:59 09/01/19 12:00 Albuterol/ Ipratropium (Albuterol/ Ipratropium) 3 ml Q4HRT N 08/31/19 19:00 09/05/19 18:59 09/01/19 12:00 Amlodipine Besylate (Norvasc) 5 mg BID NG 08/23/19 01:45 09/22/19 01:44 09/01/19 08:25 Atropine Sulfate (Atropine) 1 mg Q4H PRN IVP Per rx protocol 08/13/19 08:30 09/12/19 08:29 Chlorhexidine Gluconate (Nae-Hex 2%) 1 applic DAILY@2000 TOPIC 08/15/19 20:00 09/14/19 19:59 08/31/19 20:01 Dextrose (Dextrose 50%) 50 ml Q30M PRN IV Hypoglycemia 08/11/19 10:30 09/04/19 17:44 08/22/19 15:46 Diphenhydramine HCl (Benadryl) 50 mg Q4H PRN IVP Itching 08/09/19 14:30 09/08/19 14:29 08/13/19 02:39 Epoetin Thomas (Epoetin Thomas(ESRD on dialysis)) 4,000 unit THU-THU-THU SUBQ 08/12/19 21:00 09/11/19 20:59 08/31/19 20:35 Hydralazine HCl (Apresoline) 10 mg Q4H PRN IV For High Blood Pressure 08/18/19 12:44 09/17/19 12:43 08/22/19 09:22 Hydralazine HCl (Apresoline) 25 mg Q6HR NG 08/23/19 06:00 09/22/19 05:59 09/01/19 11:09 Lansoprazole (Prevacid) 30 mg BID GT 08/19/19 09:00 09/18/19 08:59 09/01/19 08:24 Levothyroxine Sodium (Synthroid) 50 mcg DAILY@0630 ORAL 08/25/19 06:30 09/24/19 06:29 3/19/20 05:33 Metoclopramide HCl (Reglan) 5 mg Q8H PRN IVP Nausea & Vomiting 08/09/19 12:39 09/08/19 12:38 Warren Parks MD Sep 01, 2019 12:12
--- NOTE | 2019-09-01 12:56 | Diagnostic Imaging Report ---
Indication: Large left pleural effusion Technique: Continuous helical transaxial imaging of the chest was obtained from the thoracic inlet to the upper abdomen. No intravenous contrast was administered. Coronal 2-D reformats were also obtained. Total Dose length Product (DLP): 123.[address] Dose Index Volume (CTDIvol): 3.2 mGy Comparison: none Findings: There is a large left hemothorax confirmed on the examination. This is seen as a heterogeneous mixed attenuation pleural collection within the gravity dependent portion of the left pleural space. There is complete atelectasis of the left lower lobe and partial atelectasis of the left upper lobe. The more dependent portion of the blood is heterogeneous and hyperdense. There is mild shifting of the heart and mediastinum to the right. There is a trace right pleural effusion present with atelectasis of the right lower lobe. There are patchy groundglass opacities within the aerated portions of both lungs. Endotracheal tube is present in good position. There is generalized anasarca. The aorta is moderately calcified. There is a probable pericardial effusion. There is ascites present. Gastrostomy is noted. IMPRESSION: Confirmation of a large left hemothorax. Complete atelectasis of the left lower lobe and partial left upper lobe atelectasis demonstrated. Mild rightward shift of the heart and mediastinum. Trace right pleural effusion and right lower lobe atelectasis. Probable pericardial effusion. Anasarca Ascites Gastrostomy The CT scanner at [facility] is accredited by the [employer] and the scans are performed using dose optimization techniques as appropriate to a performed exam including Automatic Exposure control.
[2019-09-01] MEDS: Dyna-Hex 2% Top Sol 2oz TOPIC SCH (20:27)
[2019-09-02] VITALS (25 sets, daily range): BP systolic 117–164; BP diastolic 57–100
[2019-09-02] MEDS: HydrALAZINE 25mg tab NG SCH ×4 (01:00→18:29)
--- NOTE | 2019-09-02 02:30 | Progress Note ---
DATE: 09/01/2019 CARDIOLOGY PROGRESS NOTE SUBJECTIVE: The patient remains in the intensive care unit. Condition remains critical. Prognosis is guarded. She remains on ventilator support. Weaning efforts are in progress. CT scan of the chest was performed. Findings notable for large left hemothorax with complete atelectasis of the left lower lobe and partially the left upper lobe and rightward shift. Probable pericardial effusion is noted as well. The patient has been transfused 3 units of packed red blood cells for severe decrease in her hemoglobin related to her hemothorax. OBJECTIVE: VITAL SIGNS: Blood pressure 112/97, pulse 83, and respirations 22. No fevers. LUNGS: Diminished breath sounds. HEART: Regular rhythm and rate. Normal S1, S2. ABDOMEN: Soft. EXTREMITIES: No edema. There is a right femoral hemodialysis catheter in place. IMPRESSION: 1. Hemothorax. 2. Respiratory failure. 3. End-stage renal disease. 4. Chronic diastolic congestive heart failure. 5. Possible pericardial effusion. 6. Sepsis with recovered shock. 7. Severe anemia due to hemothorax. PLAN: 1. Serial hemoglobin. 2. Hemodialysis with ultrafiltration. 3. Ventilator support. 4. Possible VATS procedure although unlikely patient will tolerate. 5. Echocardiogram to evaluate for pericardial effusion. 6. Antimicrobials. Unable to wean at this time with large hemothorax. 7. Will likely need trach. Abel Stubbs M.D. DR: ALICIA JOB#: [id number] CC:
[2019-09-02] MEDS: Albuterol/Ipratropium 3ml neb HHN SCH ×6 (03:52→23:15)
[2019-09-02 05:12] LABS: BASOPHILS % (AUTO) 0.3 % (0.0-2.0); EOSINOPHILS % (AUTO) 0.3 % (0.0-3.0); HEMATOCRIT 27.5 % (37.0-47.0); HEMOGLOBIN 9.6 G/DL (12.0-16.0); LYMPHOCYTES % (AUTO) 14.3 % (20.0-45.0); MEAN CORPUSCULAR VOLUME 88 FL (80-99); MONOCYTES % (AUTO) 2.7 % (1.0-10.0); NEUTROPHILS % (AUTO) 82.4 % (45.0-75.0); PLATELET COUNT 230 K/UL (150-450); RED BLOOD COUNT 3.14 M/UL (4.20-5.40); RED CELL DISTRIBUTION WIDTH 14.5 % (11.6-14.8); WHITE BLOOD COUNT 8.8 K/UL (4.8-10.8)
[2019-09-02 05:14] LABS: INR 1.1 (0.9-1.1)
[2019-09-02 05:25] LABS: ALANINE AMINOTRANSFERASE 36 U/L (12-78); ALBUMIN 2.1 G/DL (3.4-5.0); ALBUMIN/GLOBULIN RATIO 0.5 (1.0-2.7); ALKALINE PHOSPHATASE 115 U/L (46-116); ANION GAP 12 mmol/L (5-15); ASPARTATE AMINO TRANSFERASE 68 U/L (15-37); BILIRUBIN,TOTAL 0.6 MG/DL (0.2-1.0); BLOOD UREA NITROGEN 42 mg/dL (7-18); CALCIUM 9.2 MG/DL (8.5-10.1); CARBON DIOXIDE 27 MMOL/L (21-32); CHLORIDE 106 MMOL/L (98-107); CREATININE 3.1 MG/DL (0.55-1.30); POTASSIUM 3.7 MMOL/L (3.5-5.1); SODIUM 145 MMOL/L (136-145)
[2019-09-02 05:45] LABS: PHOSPHORUS 3.9 MG/DL (2.5-4.9)
--- NOTE | 2019-09-02 07:51 | General Progress Note ---
Assessment/Plan Status: stable, not improved, unchanged, deteriorating Assessment/Plan: Assessment/Plan Status: stable, not improved, unchanged, deteriorating Assessment/Plan: Assessment - Severe ulcerative esophagitis on endoscopy - on BID PPI - Resp failure - thrombocytopenia --> resolved - Renal failure - aspiration risk --> s/p PEG - anemia - bradycardia - Poor prognosis Recommendations - resume TF - s/p blood transfusion - elevate HOB - monitor H&H - poor prognosis Subjective ROS Limited/Unobtainable: No Allergies: Coded Allergies: VANCOMYCIN (Unverified Allergy, Unknown, 08/02/19) Subjective s/p blood transfusion Objective Last 24 Hour Vital Signs Date Time Temp Pulse Resp B/P (MAP) Pulse Ox O2 Delivery O2 Flow Rate FiO2 09/02/19 07:20 86 18 100 Mechanical Ventilator 40 86 17 40 09/02/19 07:00 90 20 148/74 (98) 100 09/02/19 06:30 90 18 09/02/19 06:00 98.8 87 31 132/67 (88) 100 09/02/19 05:57 152/85 09/02/19 05:01 91 19 40 09/02/19 05:00 99 25 152/85 (107) 100 09/02/19 04:00 81 09/02/19 04:00 45 09/02/19 04:00 98.0 88 24 145/82 (103) 99 09/02/19 04:00 Mechanical Ventilator Mechanical Ventilator Mechanical Ventilator Mechanical Ventilator 09/02/19 03:53 87 18 100 Mechanical Ventilator 40 90 18 40 09/02/19 03:31 94 29 143/79 (100) 99 09/02/19 03:00 110 30 97 09/02/19 02:00 96 25 163/58 (93) 99 09/02/19 01:00 86 19 139/72 (94) 100 09/02/19 01:00 134/63 09/02/19 00:41 91 18 40 09/02/19 00:30 87 18 135/65 (88) 100 09/02/19 00:00 45 09/02/19 00:00 98.4 99 26 164/100 (121) 09/02/19 00:00 79 09/02/19 00:00 Mechanical Ventilator Mechanical Ventilator Mechanical Ventilator Mechanical Ventilator 09/01/19 23:08 91 19 100 Mechanical Ventilator 40 93 18 40 09/01/19 22:45 80 18 134/63 (86) 100 09/01/19 22:15 98 19 142/69 (93) 99 09/01/19 21:15 102 22 149/67 (94) 98 09/01/19 21:10 107 25 40 09/01/19 21:00 102 18 153/72 (99) 100 09/01/19 20:30 107 22 126/90 (102) 100 09/01/19 20:27 163/80 09/01/19 20:15 100 24 163/80 (107) 97 09/01/19 20:00 45 09/01/19 20:00 99.0 83 18 169/71 (103) 100 09/01/19 20:00 88 09/01/19 20:00 Mechanical Ventilator Mechanical Ventilator Mechanical Ventilator Mechanical Ventilator 09/01/19 19:58 88 21 100 Mechanical Ventilator 40 90 20 40 09/01/19 19:30 82 19 168/77 (107) 100 09/01/19 19:00 75 18 168/76 (106) 100 09/01/19 18:44 74 160/66 09/01/19 18:00 71 19 156/57 (90) 100 09/01/19 17:47 141/57 09/01/19 17:00 76 18 129/61 (83) 100 09/01/19 16:50 88 18 40 09/01/19 16:00 45 09/01/19 16:00 98.3 97 26 142/66 (91) 100 09/01/19 16:00 Mechanical Ventilator Mechanical Ventilator Mechanical Ventilator Mechanical Ventilator 09/01/19 15:43 100 09/01/19 15:13 76 19 100 Mechanical Ventilator 40 80 18 40 09/01/19 15:00 80 24 145/62 (89) 100 09/01/19 14:00 74 20 148/70 (96) 99 09/01/19 13:00 88 25 137/84 (101) 98 09/01/19 12:37 72 27 40 09/01/19 12:00 98.5 76 18 140/67 (91) 100 09/01/19 12:00 45 09/01/19 12:00 76 18 100 Mechanical Ventilator 40 75 18 40 09/01/19 12:00 Mechanical Ventilator Mechanical Ventilator Mechanical Ventilator Mechanical Ventilator 09/01/19 11:19 68 09/01/19 11:09 142/59 09/01/19 11:00 71 18 144/58 (86) 100 09/01/19 10:00 88 26 144/66 (92) 100 09/01/19 09:41 100 09/01/19 09:00 83 22 112/97 (102) 100 09/01/19 09:00 88 27 40 09/01/19 08:25 89 133/73 09/01/19 08:00 97.4 90 18 137/63 (87) 100 91 09/01/19 08:00 Mechanical Ventilator Mechanical Ventilator Mechanical Ventilator Mechanical Ventilator 09/01/19 08:00 45 Intake and Output 09/01/19 09/02/19 19:00 07:00 Intake Total 385 ml Output Total 30 ml Balance 385 ml -30 ml Intake Free Water 100 ml Tube Feeding 35 ml Blood Product 250 ml Output Urine Total 30 ml # Voids 2 # Bowel Movements 2 4 Laboratory Tests 09/01/19 10:35: White Blood Count 9.0, Red Blood Count 3.04L, Hemoglobin 9.1#L, Hematocrit 27.4# L, Mean Corpuscular Volume 90, Mean Corpuscular Hemoglobin 30.0, Mean Corpuscular Hemoglobin Concent 33.3, Red Cell Distribution Width 16.1H, Platelet Count 263, Mean Platelet Volume 6.2L, Neutrophils (%) (Auto) 75.7H, Lymphocytes (%) (Auto) 20.0, Monocytes (%) (Auto) 3.4, Eosinophils (%) (Auto) 0.4, Basophils (%) (Auto) 0.5 09/02/19 03:40: White Blood Count 8.8, Red Blood Count 3.14L, Hemoglobin 9.6L, Hematocrit 27.5L , Mean Corpuscular Volume 88, Mean Corpuscular Hemoglobin 30.7, Mean Corpuscular Hemoglobin Concent 34.9, Red Cell Distribution Width 14.5, Platelet Count 230, Mean Platelet Volume 4.7L, Neutrophils (%) (Auto) 82.4H, Lymphocytes (%) (Auto) 14.3L, Monocytes (%) (Auto) 2.7, Eosinophils (%) (Auto) 0.3, Basophils (%) (Auto) 0.3, Prothrombin Time 11.2, Prothromb Time International Ratio 1.1, Activated Partial Thromboplast Time 29, Sodium Level 145, Potassium Level 3.7, Chloride Level 106, Carbon Dioxide Level 27, Anion Gap 12, Blood Urea Nitrogen 42H, Creatinine 3.1H, Estimat Glomerular Filtration Rate 14.5, Glucose Level 79, Calcium Level 9.2, Phosphorus Level 3.9, Magnesium Level 2.3, Total Bilirubin 0.6, Aspartate Amino Transf (AST/SGOT) 68H, Alanine Aminotransferase (ALT/SGPT) 36, Alkaline Phosphatase 115, C-Reactive Protein, Quantitative 26.4H, Pro-B-Type Natriuretic Peptide > 13947F, Total Protein 6.2L , Albumin 2.1L, Globulin 4.1, Albumin/Globulin Ratio 0.5L Height (Feet): 5 Height (Inches): 4.00 Weight (Pounds): 112 General Appearance: lethargic EENT: normal ENT inspection Neck: supple Cardiovascular: tachycardia Respiratory/Chest: decreased breath sounds Abdomen: normal bowel sounds, non tender, soft Extremities: normal range of motion Kenny Rudolph MD Sep 02, 2019 07:51
--- NOTE | 2019-09-02 08:16 | Hematology/Onc Progress Note ---
Assessment/Plan Assessment/Plan # Thrombocytopenia - potential causes multifactorial, evaluate liver and viral etiologies to begin, in this case due to sepsis with septic shock also with cirrhosis and liver disease --> Hep panel and HIV ordered -> neg --> US abd to evaluate for cirrhosis and hsm ordered --> reviewed --> Peripheral smear ordered to evaluate for blasts /schistocytes --> abx and other meds have been reviewed --> ok for ppx if plt >50k w/ either heparin or lovenox --> Transfuse if Plt < 20k and fever, or if Plt < 10k without fever --> okay for permacath change once plt better--> for 08/14 --> plt trend: 43-->83-->237k-->292-->341-->315-->388 -->444-->530 # Anemia of chronic disease due to underlying chronic medical issues, multifactorial v Gi bleed --> Anemia workup has been ordered, rule out gi bleed --> No evidence of hemolysis is noted, peripheral smear has been reviewed. --> Hgb goal >7. Transfuse prn. --> Epogen has been started --> HOLD OFF IRON ferritin is >1000 --> Medications have been reviewed --> low threshold for gi evaluation in case has occult + --> hgb 9-->6.7-->9.2 -->10.5-->10.6 -->10.7-->10-->10.5-->9.8-->10.4-->9.5--> 3.6-->9.6 --> blood tx: 08/11, 08/31 --> CT Chest pendig r/o hemothorax --> does show Confirmation of a large left hemothorax. Complete atelectasis of the left lower lobe and partial left upper lobe atelectasis demonstrated. Mild rightward shift of the heart and mediastinum. # Sepsis with shock. --> abx as per id, recs noted --> pressors as needed # Healthcare-associated pneumonia. --> recs reviewed --> abx: jung/micafungin-->jung --> 08/24 us chest: moderate left pleural effusion # Severe protein-calorie malnutrition. --> nutritional support # End-stage renal disease --> had as renal hd --> with permacath # History of hypertension. --> per cards, now with Bradycardia. # resp failure s/p vent/trach # HypoThyroid # Ngt feedings # Dvt ppx scd's The timing of this note does not necessarily reflect the time of the patient was seen. Greatly appreciate consultation. Subjective HEENT: Denies: no symptoms, eye pain, blurred vision, tearing, double vision, ear pain, ear discharge, nose pain, nose congestion, throat pain, throat swelling, mouth pain, mouth swelling, other Cardiovascular: Denies: no symptoms, chest pain, edema, irregular heart rate, lightheadedness, palpitations, syncope, other Respiratory: Denies: no symptoms, cough, shortness of breath, SOB with excertion, SOB at rest, sputum, wheezing, other Gastrointestinal/Abdominal: Denies: no symptoms, abdomen distended, abdominal pain, black stools, tarry stools, blood in stool, constipated, diarrhea, difficulty swallowing, nausea, poor appetite, poor fluid intake, rectal bleeding , vomiting, other Genitourinary: Denies: no symptoms, burning, discharge, frequency, flank pain, hematuria, incontinence, pain, urgency, other Neurologic/Psychiatric: Denies: no symptoms, anxiety, depressed, emotional problems, headache, numbness, paresthesia, pre-existing deficit, seizure, tingling, tremors, weakness, other Endocrine: Denies: no symptoms, excessive sweating, flushing, intolerance to cold, intolerance to heat, increased hunger, increased thirst, increased urine, unexplained weight gain, unexplained weight loss, other Hematologic/Lymphatic: Denies: no symptoms, anemia, easy bleeding, easy bruising, adenopathy, other Allergies: Coded Allergies: VANCOMYCIN (Unverified Allergy, Unknown, 08/02/19) Subjective 08/11: no bleeding or chills, labs reviewed, no major bleeding, plt less than 50k 08/12: icu, s/p blood, hgb improved to 9.2, 08/14: icu, pending consent for thora and permacath, labs reviewed 08/15: new permacath placed, no bleeding, for hd, plt much improved, started lovenox sq 08/16: ett to be adjusted, bp on high end, micafungin started, possible bronch 08/17: weaning as per pulm, no events otherwise, labs noted 08/18: no events no bleeding, remains confused on vent, for hd 08/20: icu, failed to wean, labs reviewed, jung 08/21: resting in bed, no overnight events, labs reviewed 08/22: awake, confused, restraints, no overnight events 08/23: no events, no bleeding, on ppi bid 08/24: icu, failed to wean, labs reviewed 08/25: no overnight events, us chest, restraints, afebrile 08/26 difficult in weaning, nad, seen by surg, pulm labs noted 08/27 awake on restraints, thoracentesis for am, labs reviewed 08/29 no bleeding, no night sweats, no major changes, on ppi bid 08/30 no major events, remains on vent, no bleeding, dw pcp 08/31 hgb dropped to 3.6, has been transfused with prbc, in icu, dw Rn, ct chest pend 09/01 no major events, no bleeding, labs noted, hgb remains low, hgb 9.6 Objective Objective Current Medications Medications (Trade) Dose Ordered Sig/Javier Route PRN Reason Start Time Stop Time Status Last Admin Dose Admin Acetylcysteine (Mucomyst) 100 mg Q4HRT N 08/31/19 19:00 11/29/19 18:59 09/02/19 07:04 Albuterol/ Ipratropium (Albuterol/ Ipratropium) 3 ml Q4HRT HHN 08/31/19 19:00 09/05/19 18:59 09/02/19 07:04 Amlodipine Besylate (Norvasc) 5 mg BID NG 08/23/19 01:45 09/22/19 01:44 09/01/19 18:44 Atropine Sulfate (Atropine) 1 mg Q4H PRN IVP Per rx protocol 08/13/19 08:30 09/12/19 08:29 Chlorhexidine Gluconate (Nae-Hex 2%) 1 applic DAILY@2000 TOPIC 08/15/19 20:00 09/14/19 19:59 09/01/19 20:27 Dextrose (Dextrose 50%) 25 ml Q30M PRN IV Hypoglycemia 09/02/19 06:15 12/01/19 06:14 Dextrose (Dextrose 50%) 50 ml Q30M PRN IV Hypoglycemia 09/02/19 06:15 12/01/19 06:14 Diphenhydramine HCl (Benadryl) 50 mg Q4H PRN IVP Itching 08/09/19 14:30 09/08/19 14:29 08/13/19 02:39 Epoetin Thomas (Epoetin Thomas(ESRD on dialysis)) 4,000 unit SUBQ 08/12/19 21:00 09/11/19 20:59 08/31/19 20:35 Hydralazine HCl (Apresoline) 10 mg Q4H PRN IV For High Blood Pressure 08/18/19 12:44 09/17/19 12:43 09/01/19 20:27 Hydralazine HCl (Apresoline) 25 mg Q6HR NG 08/23/19 06:00 09/22/19 05:59 09/02/19 05:57 Lansoprazole (Prevacid) 30 mg BID GT 08/19/19 09:00 09/18/19 08:59 09/01/19 17:45 Levothyroxine Sodium (Synthroid) 50 mcg DAILY@0630 ORAL 08/25/19 06:30 09/24/19 06:29 09/02/19 05:57 Metoclopramide HCl (Reglan) 5 mg Q8H PRN IVP Nausea & Vomiting 08/09/19 12:39 09/08/19 12:38 Last 24 Hour Vital Signs Date Time Temp Pulse Resp B/P (MAP) Pulse Ox O2 Delivery O2 Flow Rate FiO2 09/02/19 08:00 45 09/02/19 08:00 97.7 93 25 152/78 (102) 99 09/02/19 08:00 Mechanical Ventilator Mechanical Ventilator Mechanical Ventilator Mechanical Ventilator 09/02/19 07:20 86 18 100 Mechanical Ventilator 40 86 17 40 09/02/19 07:00 90 20 148/74 (98) 100 09/02/19 06:30 90 18 09/02/19 06:00 98.8 87 31 132/67 (88) 100 09/02/19 05:57 152/85 09/02/19 05:01 91 19 40 3/20/20 05:00 99 25 152/85 (107) 100 09/02/19 04:00 81 09/02/19 04:00 45 09/02/19 04:00 98.0 88 24 145/82 (103) 99 09/02/19 04:00 Mechanical Ventilator Mechanical Ventilator Mechanical Ventilator Mechanical Ventilator 09/02/19 03:53 87 18 100 Mechanical Ventilator 40 90 18 40 09/02/19 03:31 94 29 143/79 (100) 99 09/02/19 03:00 110 30 97 09/02/19 02:00 96 25 163/58 (93) 99 09/02/19 01:00 86 19 139/72 (94) 100 09/02/19 01:00 134/63 09/02/19 00:41 91 18 40 09/02/19 00:30 87 18 135/65 (88) 100 09/02/19 00:00 45 09/02/19 00:00 98.4 99 26 164/100 (121) 09/02/19 00:00 79 09/02/19 00:00 Mechanical Ventilator Mechanical Ventilator Mechanical Ventilator Mechanical Ventilator 09/01/19 23:08 91 19 100 Mechanical Ventilator 40 93 18 40 09/01/19 22:45 80 18 134/63 (86) 100 09/01/19 22:15 98 19 142/69 (93) 99 09/01/19 21:15 102 22 149/67 (94) 98 09/01/19 21:10 107 25 40 09/01/19 21:00 102 18 153/72 (99) 100 09/01/19 20:30 107 22 126/90 (102) 100 09/01/19 20:27 163/80 09/01/19 20:15 100 24 163/80 (107) 97 09/01/19 20:00 45 09/01/19 20:00 99.0 83 18 169/71 (103) 100 09/01/19 20:00 88 09/01/19 20:00 Mechanical Ventilator Mechanical Ventilator Mechanical Ventilator Mechanical Ventilator 09/01/19 19:58 88 21 100 Mechanical Ventilator 40 90 20 40 09/01/19 19:30 82 19 168/77 (107) 100 09/01/19 19:00 75 18 168/76 (106) 100 09/01/19 18:44 74 160/66 3/19/20 18:00 71 19 156/57 (90) 100 09/01/19 17:47 141/57 09/01/19 17:00 76 18 129/61 (83) 100 09/01/19 16:50 88 18 40 09/01/19 16:00 45 09/01/19 16:00 98.3 97 26 142/66 (91) 100 09/01/19 16:00 Mechanical Ventilator Mechanical Ventilator Mechanical Ventilator Mechanical Ventilator 09/01/19 15:43 100 09/01/19 15:13 76 19 100 Mechanical Ventilator 40 80 18 40 09/01/19 15:00 80 24 145/62 (89) 100 09/01/19 14:00 74 20 148/70 (96) 99 09/01/19 13:00 88 25 137/84 (101) 98 09/01/19 12:37 72 27 40 09/01/19 12:00 98.5 76 18 140/67 (91) 100 09/01/19 12:00 45 09/01/19 12:00 76 18 100 Mechanical Ventilator 40 75 18 40 09/01/19 12:00 Mechanical Ventilator Mechanical Ventilator Mechanical Ventilator Mechanical Ventilator 09/01/19 11:19 68 09/01/19 11:09 142/59 09/01/19 11:00 71 18 144/58 (86) 100 09/01/19 10:00 88 26 144/66 (92) 100 09/01/19 09:41 100 09/01/19 09:00 83 22 112/97 (102) 100 09/01/19 09:00 88 27 40 09/01/19 08:25 89 133/73 09/01/19 08:00 97.4 90 18 137/63 (87) 100 91 09/01/19 08:00 Mechanical Ventilator Mechanical Ventilator Mechanical Ventilator Mechanical Ventilator 09/01/19 08:00 45 09/01/19 07:30 81 09/01/19 07:26 87 18 100 Mechanical Ventilator 40 80 18 40 09/01/19 07:00 81 23 164/61 (95) 100 09/01/19 06:30 83 18 09/01/19 06:00 68 18 140/69 (92) 100 09/01/19 05:33 144/55 09/01/19 05:00 73 18 165/71 (102) 100 09/01/19 04:38 88 19 40 09/01/19 04:00 45 09/01/19 04:00 98.6 80 19 134/51 (78) 100 09/01/19 04:00 Mechanical Ventilator Mechanical Ventilator Mechanical Ventilator Mechanical Ventilator 09/01/19 03:15 95 09/01/19 03:00 100 25 129/92 (104) 100 09/01/19 02:45 95 25 138/64 (88) 100 09/01/19 02:30 89 18 130/50 (76) 94 09/01/19 02:24 89 18 100 Mechanical Ventilator 40 86 18 40 09/01/19 02:00 94 22 134/39 (70) 97 09/01/19 01:00 83 19 119/50 (73) 100 09/01/19 00:35 82 18 40 09/01/19 00:00 45 09/01/19 00:00 Mechanical Ventilator Mechanical Ventilator Mechanical Ventilator Mechanical Ventilator 09/01/19 00:00 98.0 87 21 126/51 (76) 99 09/01/19 00:00 87 08/31/19 23:54 121/47 08/31/19 23:15 112 29 136/51 (79) 99 08/31/19 23:00 132 29 162/60 (94) 95 08/31/19 22:51 95 23 98 Mechanical Ventilator 45 08/31/19 22:45 98 30 99 Mechanical Ventilator 45 98 24 45 08/31/19 22:00 73 24 122/53 (76) 100 08/31/19 21:00 77 24 120/51 (74) 100 08/31/19 20:44 77 18 45 08/31/19 20:00 45 08/31/19 20:00 Mechanical Ventilator Mechanical Ventilator Mechanical Ventilator Mechanical Ventilator 08/31/19 20:00 98.2 77 26 125/48 (73) 100 08/31/19 19:29 76 08/31/19 19:21 83 20 100 Mechanical Ventilator 45 81 19 45 08/31/19 19:00 82 20 121/64 (83) 100 08/31/19 18:00 75 21 134/53 (80) 100 08/31/19 18:00 80 117/61 1820 18:00 117/61 08/31/19 17:00 74 19 137/52 (80) 100 08/31/19 16:50 75 18 45 08/31/19 16:00 Mechanical Ventilator Mechanical Ventilator Mechanical Ventilator Mechanical Ventilator 08/31/19 16:00 75 20 99/78 (85) 100 08/31/19 16:00 75 08/31/19 16:00 45 08/31/19 15:28 78 18 45 08/31/19 15:00 81 18 115/62 (79) 99 08/31/19 14:00 85 20 149/58 (88) 98 08/31/19 13:52 154/81 08/31/19 13:00 99.2 79 18 140/51 (80) 100 08/31/19 12:53 91 21 45 08/31/19 12:00 79 19 143/44 (77) 100 08/31/19 12:00 73 08/31/19 12:00 45 08/31/19 12:00 Mechanical Ventilator Mechanical Ventilator Mechanical Ventilator Mechanical Ventilator 08/31/19 11:00 83 18 134/59 (84) 100 08/31/19 10:43 76 146/56 08/31/19 10:42 74 16 45 08/31/19 10:00 77 18 144/51 (82) 100 08/31/19 09:53 08/31/19 09:00 69 22 134/45 (74) 100 08/31/19 09:00 69 18 45 Intake and Output 09/01/19 09/02/19 19:00 07:00 Intake Total 385 ml Output Total 30 ml Balance 385 ml -30 ml Intake Free Water 100 ml Tube Feeding 35 ml Blood Product 250 ml Output Urine Total 30 ml # Voids 2 # Bowel Movements 2 4 Labs Test 08/30/19 16:41 08/31/19 03:40 08/31/19 20:50 08/31/19 22:45 Arterial Blood pH 7.553 (7.350-7.450) Arterial Blood Partial Pressure CO2 35.7 mmHg (35.0-45.0) Arterial Blood Partial Pressure O2 111.7 mmHg (75.0-100.0) Arterial Blood HCO3 30.7 mmol/L (22.0-26.0) Arterial Blood Oxygen Saturation 97.5 % (95-100) Arterial Blood Base Excess 7.7 (-2-2) [place] Test Positive Sodium Level 148 MMOL/L (136-145) Potassium Level 3.5 MMOL/L (3.5-5.1) Chloride Level 108 MMOL/L (98-107) Carbon Dioxide Level 30 MMOL/L (21-32) Anion Gap 10 mmol/L (5-15) Blood Urea Nitrogen 29 mg/dL (7-18) Creatinine 2.3 MG/DL (0.55-1.30) Estimat Glomerular Filtration Rate 20.5 mL/min (>60) Glucose Level 138 MG/DL (74-106) Uric Acid 4.1 MG/DL (2.6-7.2) Calcium Level 8.7 MG/DL (8.5-10.1) Phosphorus Level 3.0 MG/DL (2.5-4.9) Magnesium Level 2.2 MG/DL (1.8-2.4) Total Bilirubin 0.3 MG/DL (0.2-1.0) Aspartate Amino Transf (AST/SGOT) 531 U/L (15-37) Alanine Aminotransferase (ALT/SGPT) 137 U/L (12-78) Alkaline Phosphatase 120 U/L (46-116) C-Reactive Protein, Quantitative 7.7 mg/dL (0.00-0.90) Pro-B-Type Natriuretic Peptide > 29815 pg/mL (0-125) Total Protein 5.4 G/DL (6.4-8.2) Albumin 2.4 G/DL (3.4-5.0) Globulin 3.0 g/dL Albumin/Globulin Ratio 0.8 (1.0-2.7) White Blood Count 8.4 K/UL (4.8-10.8) 9.0 K/UL (4.8-10.8) Red Blood Count 1.21 M/UL (4.20-5.40) 1.16 M/UL (4.20-5.40) Hemoglobin 3.6 G/DL (12.0-16.0) 3.5 G/DL (12.0-16.0) Hematocrit 11.3 % (37.0-47.0) 10.5 % (37.0-47.0) Mean Corpuscular Volume 93 FL (80-99) 91 FL (80-99) Mean Corpuscular Hemoglobin 29.9 PG (27.0-31.0) 30.5 PG (27.0-31.0) Mean Corpuscular Hemoglobin Concent 31.9 G/DL (32.0-36.0) 33.6 G/DL (32.0-36.0) Red Cell Distribution Width 18.6 % (11.6-14.8) 17.1 % (11.6-14.8) Platelet Count 309 K/UL (150-450) 316 K/UL (150-450) Mean Platelet Volume 6.1 FL (6.5-10.1) 5.2 FL (6.5-10.1) Neutrophils (%) (Auto) % (45.0-75.0) % (45.0-75.0) Lymphocytes (%) (Auto) % (20.0-45.0) % (20.0-45.0) Monocytes (%) (Auto) % (1.0-10.0) % (1.0-10.0) Eosinophils (%) (Auto) % (0.0-3.0) % (0.0-3.0) Basophils (%) (Auto) % (0.0-2.0) % (0.0-2.0) Differential Total Cells Counted 100 100 Neutrophils % (Manual) 78 % (45-75) 70 % (45-75) Lymphocytes % (Manual) 15 % (20-45) 28 % (20-45) Monocytes % (Manual) 4 % (1-10) 2 % (1-10) Eosinophils % (Manual) 1 % (0-3) 0 % (0-3) Basophils % (Manual) 0 % (0-2) 0 % (0-2) Band Neutrophils 2 % (0-8) 0 % (0-8) Platelet Estimate Adequate Adequate Platelet Morphology Normal Normal Hypochromasia 3+ Anisocytosis 3+ Test 09/01/19 10:35 09/02/19 03:40 White Blood Count 9.0 K/UL (4.8-10.8) 8.8 K/UL (4.8-10.8) Red Blood Count 3.04 M/UL (4.20-5.40) 3.14 M/UL (4.20-5.40) Hemoglobin 9.1 G/DL (12.0-16.0) 9.6 G/DL (12.0-16.0) Hematocrit 27.4 % (37.0-47.0) 27.5 % (37.0-47.0) Mean Corpuscular Volume 90 FL (80-99) 88 FL (80-99) Mean Corpuscular Hemoglobin 30.0 PG (27.0-31.0) 30.7 PG (27.0-31.0) Mean Corpuscular Hemoglobin Concent 33.3 G/DL (32.0-36.0) 34.9 G/DL (32.0-36.0) Red Cell Distribution Width 16.1 % (11.6-14.8) 14.5 % (11.6-14.8) Platelet Count 263 K/UL (150-450) 230 K/UL (150-450) Mean Platelet Volume 6.2 FL (6.5-10.1) 4.7 FL (6.5-10.1) Neutrophils (%) (Auto) 75.7 % (45.0-75.0) 82.4 % (45.0-75.0) Lymphocytes (%) (Auto) 20.0 % (20.0-45.0) 14.3 % (20.0-45.0) Monocytes (%) (Auto) 3.4 % (1.0-10.0) 2.7 % (1.0-10.0) Eosinophils (%) (Auto) 0.4 % (0.0-3.0) 0.3 % (0.0-3.0) Basophils (%) (Auto) 0.5 % (0.0-2.0) 0.3 % (0.0-2.0) Prothrombin Time 11.2 SEC (9.30-11.50) Prothromb Time International Ratio 1.1 (0.9-1.1) Activated Partial Thromboplast Time 29 SEC (23-33) Sodium Level 145 MMOL/L (136-145) Potassium Level 3.7 MMOL/L (3.5-5.1) Chloride Level 106 MMOL/L (98-107) Carbon Dioxide Level 27 MMOL/L (21-32) Anion Gap 12 mmol/L (5-15) Blood Urea Nitrogen 42 mg/dL (7-18) Creatinine 3.1 MG/DL (0.55-1.30) Estimat Glomerular Filtration Rate 14.5 mL/min (>60) Glucose Level 79 MG/DL (74-106) Calcium Level 9.2 MG/DL (8.5-10.1) Phosphorus Level 3.9 MG/DL (2.5-4.9) Magnesium Level 2.3 MG/DL (1.8-2.4) Total Bilirubin 0.6 MG/DL (0.2-1.0) Aspartate Amino Transf (AST/SGOT) 68 U/L (15-37) Alanine Aminotransferase (ALT/SGPT) 36 U/L (12-78) Alkaline Phosphatase 115 U/L (46-116) C-Reactive Protein, Quantitative 26.4 mg/dL (0.00-0.90) Pro-B-Type Natriuretic Peptide > 67650 pg/mL (0-125) Total Protein 6.2 G/DL (6.4-8.2) Albumin 2.1 G/DL (3.4-5.0) Globulin 4.1 g/dL Albumin/Globulin Ratio 0.5 (1.0-2.7) Height (Feet): 5 Height (Inches): 4.00 Weight (Pounds): 112 Objective gen: nad pulm: on trach+ / vent, decreased breath sounds left cv: rrr, no gmr abd: sfot, nt, nd ++ gt ext: no cce Gio Rob MD Sep 02, 2019 08:16
--- NOTE | 2019-09-02 09:03 | Critical Care Progress Note ---
Assessment/Plan Assessment/Plan respiratory failure hemoptysis resolved hypoxemia chronic renal failure toxic met encephalopathy severe protein calorie malnutrition cachexia left lung whiteout/collapse, improved with intubation s/p intubation anemia ? blood loss pulmonary edema with elevated BNP + pleural effusion ? hemothorax PLAN fluid cultures noted repeat TAP hold anticoags for now may need CT care noted and reviewed HD as needed reviewed care failed weaning past few days- 3rd spacing noted d/w family as to trach vs terminal care; per Dr. Beltran keep negative and monitor osmotic pressures ID and other specialist reviewed close follow up discussed elevated head and monitor ROM watch fluid status nutrition as able isolation as needed off load as able and monitor skin exam ROM as able ICU care and management critical at present requires ICU management and close follow up care feeds as able and monitor residuals medications/laboratory data/nursing notes/ICU care reviewed in detail note reviewed and edited care discussed with RN and RT ICU time spent >40 minutes coordinating care Critical Care - Subjective Interval Events: events noted worsening effusion CT chest noted ROS Limited/Unobtainable: Yes Condition: critical EKG Rhythm: Sinus Rhythm Residuals: minimal Tube Feeding Tolerated: yes I&O: Intake and Output 09/01/19 09/02/19 19:00 07:00 Intake Total 385 ml Output Total 30 ml Balance 385 ml -30 ml Intake Free Water 100 ml Tube Feeding 35 ml Blood Product 250 ml Output Urine Total 30 ml # Voids 2 # Bowel Movements 2 4 Critical Care - Objective ET-Tube: 7.0 ET Position: 21 Last 24 Hour Vital Signs Date Time Temp Pulse Resp B/P (MAP) Pulse Ox O2 Delivery O2 Flow Rate FiO2 09/02/19 08:31 94 156/70 09/02/19 08:00 45 09/02/19 08:00 97.7 93 25 152/78 (102) 99 09/02/19 08:00 Mechanical Ventilator Mechanical Ventilator Mechanical Ventilator Mechanical Ventilator 09/02/19 07:20 86 18 100 Mechanical Ventilator 40 86 17 40 09/02/19 07:00 90 20 148/74 (98) 100 09/02/19 06:30 90 18 09/02/19 06:00 98.8 87 31 132/67 (88) 100 09/02/19 05:57 152/85 09/02/19 05:01 91 19 40 09/02/19 05:00 99 25 152/85 (107) 100 09/02/19 04:00 81 09/02/19 04:00 45 09/02/19 04:00 98.0 88 24 145/82 (103) 99 09/02/19 04:00 Mechanical Ventilator Mechanical Ventilator Mechanical Ventilator Mechanical Ventilator 09/02/19 03:53 87 18 100 Mechanical Ventilator 40 90 18 40 09/02/19 03:31 94 29 143/79 (100) 99 09/02/19 03:00 110 30 97 09/02/19 02:00 96 25 163/58 (93) 99 09/02/19 01:00 86 19 139/72 (94) 100 09/02/19 01:00 134/63 09/02/19 00:41 91 18 40 09/02/19 00:30 87 18 135/65 (88) 100 09/02/19 00:00 45 09/02/19 00:00 98.4 99 26 164/100 (121) 09/02/19 00:00 79 09/02/19 00:00 Mechanical Ventilator Mechanical Ventilator Mechanical Ventilator Mechanical Ventilator 09/01/19 23:08 91 19 100 Mechanical Ventilator 40 93 18 40 09/01/19 22:45 80 18 134/63 (86) 100 09/01/19 22:15 98 19 142/69 (93) 99 09/01/19 21:15 102 22 149/67 (94) 98 09/01/19 21:10 107 25 40 09/01/19 21:00 102 18 153/72 (99) 100 09/01/19 20:30 107 22 126/90 (102) 100 09/01/19 20:27 163/80 09/01/19 20:15 100 24 163/80 (107) 97 09/01/19 20:00 45 09/01/19 20:00 99.0 83 18 169/71 (103) 100 09/01/19 20:00 88 09/01/19 20:00 Mechanical Ventilator Mechanical Ventilator Mechanical Ventilator Mechanical Ventilator 09/01/19 19:58 88 21 100 Mechanical Ventilator 40 90 20 40 09/01/19 19:30 82 19 168/77 (107) 100 09/01/19 19:00 75 18 168/76 (106) 100 09/01/19 18:44 74 160/66 09/01/19 18:00 71 19 156/57 (90) 100 09/01/19 17:47 141/57 09/01/19 17:00 76 18 129/61 (83) 100 09/01/19 16:50 88 18 40 09/01/19 16:00 45 09/01/19 16:00 98.3 97 26 142/66 (91) 100 09/01/19 16:00 Mechanical Ventilator Mechanical Ventilator Mechanical Ventilator Mechanical Ventilator 09/01/19 15:43 100 09/01/19 15:13 76 19 100 Mechanical Ventilator 40 80 18 40 09/01/19 15:00 80 24 145/62 (89) 100 09/01/19 14:00 74 20 148/70 (96) 99 09/01/19 13:00 88 25 137/84 (101) 98 09/01/19 12:37 72 27 40 09/01/19 12:00 98.5 76 18 140/67 (91) 100 09/01/19 12:00 45 09/01/19 12:00 76 18 100 Mechanical Ventilator 40 75 18 40 09/01/19 12:00 Mechanical Ventilator Mechanical Ventilator Mechanical Ventilator Mechanical Ventilator 09/01/19 11:19 68 09/01/19 11:09 142/59 09/01/19 11:00 71 18 144/58 (86) 100 09/01/19 10:00 88 26 144/66 (92) 100 09/01/19 09:41 100 Labs: Labs Test 08/30/19 16:41 08/31/19 03:40 08/31/19 20:50 08/31/19 22:45 Arterial Blood pH 7.553 (7.350-7.450) Arterial Blood Partial Pressure CO2 35.7 mmHg (35.0-45.0) Arterial Blood Partial Pressure O2 111.7 mmHg (75.0-100.0) Arterial Blood HCO3 30.7 mmol/L (22.0-26.0) Arterial Blood Oxygen Saturation 97.5 % (95-100) Arterial Blood Base Excess 7.7 (-2-2) Cuauhtemoc Test Positive Sodium Level 148 MMOL/L (136-145) Potassium Level 3.5 MMOL/L (3.5-5.1) Chloride Level 108 MMOL/L (98-107) Carbon Dioxide Level 30 MMOL/L (21-32) Anion Gap 10 mmol/L (5-15) Blood Urea Nitrogen 29 mg/dL (7-18) Creatinine 2.3 MG/DL (0.55-1.30) Estimat Glomerular Filtration Rate 20.5 mL/min (>60) Glucose Level 138 MG/DL (74-106) Uric Acid 4.1 MG/DL (2.6-7.2) Calcium Level 8.7 MG/DL (8.5-10.1) Phosphorus Level 3.0 MG/DL (2.5-4.9) Magnesium Level 2.2 MG/DL (1.8-2.4) Total Bilirubin 0.3 MG/DL (0.2-1.0) Aspartate Amino Transf (AST/SGOT) 531 U/L (15-37) Alanine Aminotransferase (ALT/SGPT) 137 U/L (12-78) Alkaline Phosphatase 120 U/L (46-116) C-Reactive Protein, Quantitative 7.7 mg/dL (0.00-0.90) Pro-B-Type Natriuretic Peptide > 08416 pg/mL (0-125) Total Protein 5.4 G/DL (6.4-8.2) Albumin 2.4 G/DL (3.4-5.0) Globulin 3.0 g/dL Albumin/Globulin Ratio 0.8 (1.0-2.7) White Blood Count 8.4 K/UL (4.8-10.8) 9.0 K/UL (4.8-10.8) Red Blood Count 1.21 M/UL (4.20-5.40) 1.16 M/UL (4.20-5.40) Hemoglobin 3.6 G/DL (12.0-16.0) 3.5 G/DL (12.0-16.0) Hematocrit 11.3 % (37.0-47.0) 10.5 % (37.0-47.0) Mean Corpuscular Volume 93 FL (80-99) 91 FL (80-99) Mean Corpuscular Hemoglobin 29.9 PG (27.0-31.0) 30.5 PG (27.0-31.0) Mean Corpuscular Hemoglobin Concent 31.9 G/DL (32.0-36.0) 33.6 G/DL (32.0-36.0) Red Cell Distribution Width 18.6 % (11.6-14.8) 17.1 % (11.6-14.8) Platelet Count 309 K/UL (150-450) 316 K/UL (150-450) Mean Platelet Volume 6.1 FL (6.5-10.1) 5.2 FL (6.5-10.1) Neutrophils (%) (Auto) % (45.0-75.0) % (45.0-75.0) Lymphocytes (%) (Auto) % (20.0-45.0) % (20.0-45.0) Monocytes (%) (Auto) % (1.0-10.0) % (1.0-10.0) Eosinophils (%) (Auto) % (0.0-3.0) % (0.0-3.0) Basophils (%) (Auto) % (0.0-2.0) % (0.0-2.0) Differential Total Cells Counted 100 100 Neutrophils % (Manual) 78 % (45-75) 70 % (45-75) Lymphocytes % (Manual) 15 % (20-45) 28 % (20-45) Monocytes % (Manual) 4 % (1-10) 2 % (1-10) Eosinophils % (Manual) 1 % (0-3) 0 % (0-3) Basophils % (Manual) 0 % (0-2) 0 % (0-2) Band Neutrophils 2 % (0-8) 0 % (0-8) Platelet Estimate Adequate Adequate Platelet Morphology Normal Normal Hypochromasia 3+ Anisocytosis 3+ Test 09/01/19 10:35 09/02/19 03:40 White Blood Count 9.0 K/UL (4.8-10.8) 8.8 K/UL (4.8-10.8) Red Blood Count 3.04 M/UL (4.20-5.40) 3.14 M/UL (4.20-5.40) Hemoglobin 9.1 G/DL (12.0-16.0) 9.6 G/DL (12.0-16.0) Hematocrit 27.4 % (37.0-47.0) 27.5 % (37.0-47.0) Mean Corpuscular Volume 90 FL (80-99) 88 FL (80-99) Mean Corpuscular Hemoglobin 30.0 PG (27.0-31.0) 30.7 PG (27.0-31.0) Mean Corpuscular Hemoglobin Concent 33.3 G/DL (32.0-36.0) 34.9 G/DL (32.0-36.0) Red Cell Distribution Width 16.1 % (11.6-14.8) 14.5 % (11.6-14.8) Platelet Count 263 K/UL (150-450) 230 K/UL (150-450) Mean Platelet Volume 6.2 FL (6.5-10.1) 4.7 FL (6.5-10.1) Neutrophils (%) (Auto) 75.7 % (45.0-75.0) 82.4 % (45.0-75.0) Lymphocytes (%) (Auto) 20.0 % (20.0-45.0) 14.3 % (20.0-45.0) Monocytes (%) (Auto) 3.4 % (1.0-10.0) 2.7 % (1.0-10.0) Eosinophils (%) (Auto) 0.4 % (0.0-3.0) 0.3 % (0.0-3.0) Basophils (%) (Auto) 0.5 % (0.0-2.0) 0.3 % (0.0-2.0) Prothrombin Time 11.2 SEC (9.30-11.50) Prothromb Time International Ratio 1.1 (0.9-1.1) Activated Partial Thromboplast Time 29 SEC (23-33) Sodium Level 145 MMOL/L (136-145) Potassium Level 3.7 MMOL/L (3.5-5.1) Chloride Level 106 MMOL/L (98-107) Carbon Dioxide Level 27 MMOL/L (21-32) Anion Gap 12 mmol/L (5-15) Blood Urea Nitrogen 42 mg/dL (7-18) Creatinine 3.1 MG/DL (0.55-1.30) Estimat Glomerular Filtration Rate 14.5 mL/min (>60) Glucose Level 79 MG/DL (74-106) Calcium Level 9.2 MG/DL (8.5-10.1) Phosphorus Level 3.9 MG/DL (2.5-4.9) Magnesium Level 2.3 MG/DL (1.8-2.4) Total Bilirubin 0.6 MG/DL (0.2-1.0) Aspartate Amino Transf (AST/SGOT) 68 U/L (15-37) Alanine Aminotransferase (ALT/SGPT) 36 U/L (12-78) Alkaline Phosphatase 115 U/L (46-116) C-Reactive Protein, Quantitative 26.4 mg/dL (0.00-0.90) Pro-B-Type Natriuretic Peptide > 15325 pg/mL (0-125) Total Protein 6.2 G/DL (6.4-8.2) Albumin 2.1 G/DL (3.4-5.0) Globulin 4.1 g/dL Albumin/Globulin Ratio 0.5 (1.0-2.7) Objective: WDWN NAD intubated reduced breath sounds left >right with some rhonchi [id number] without MRG NABS nontender no HSM no CCE contractures feeding tube in place no distention reduced LOC and weak nonfocal cachectic reviewed and edited Accucheck: 90 Malcolm Cruz MD Sep 02, 2019 09:03
[2019-09-02] MEDS: D5 1/2NS 1,000 ML IV SCH (09:14)
--- NOTE | 2019-09-02 10:19 | Nephrology Progress Note ---
Assessment/Plan Problem List: (1) ESRD (end stage renal disease) on dialysis (2) Malnutrition (3) Anemia in CKD (chronic kidney disease) (4) Hypotension (5) Thrombocytopenia (6) Sepsis Assessment: klebsiella in blood Assessment -Early sepsis with shock. -Healthcare-associated pneumonia. -Severe protein-calorie malnutrition. -Thrombocytopenia. - End-stage renal disease. - History of hypertension. - Bradycardia. - HypoThyroid Plan Patient transfused 3 units of packed RBCs for low hemoglobin Been stable today Remains full code Last dialysis August 29 next dialysis as needed Due to her overall medical condition I favor DNR and comfort care Blood pressure fluctuating, will start hydralazine via NG tube for blood pressure Magnesium and potassium supplement intravenously as needed Patient underwent PEG placement August 16 patient remains intubated on ventilator Discussed with RN Aim to wean from ventilator or consider tracheostomy Permacath was removed on August 12 Dialysis 08/11 Transfusion as needed Patient had hematemesis meds IV as possible Surveillance blood cultures tomorrow Plan to put the permacath back in on Thursday if cultures are negative keep BP and BS in check Inflammatory markers per orders Subjective ROS Limited/Unobtainable: Yes Objective Objective Last 24 Hour Vital Signs Date Time Temp Pulse Resp B/P (MAP) Pulse Ox O2 Delivery O2 Flow Rate FiO2 09/02/19 09:22 90 09/02/19 09:00 94 28 117/60 (79) 97 09/02/19 08:31 94 156/70 09/02/19 08:00 45 09/02/19 08:00 97.7 93 25 152/78 (102) 99 09/02/19 08:00 Mechanical Ventilator Mechanical Ventilator Mechanical Ventilator Mechanical Ventilator 09/02/19 07:20 86 18 100 Mechanical Ventilator 40 86 17 40 09/02/19 07:00 90 20 148/74 (98) 100 09/02/19 06:30 90 18 09/02/19 06:00 98.8 87 31 132/67 (88) 100 09/02/19 05:57 152/85 09/02/19 05:01 91 19 40 09/02/19 05:00 99 25 152/85 (107) 100 09/02/19 04:00 81 09/02/19 04:00 45 09/02/19 04:00 98.0 88 24 145/82 (103) 99 09/02/19 04:00 Mechanical Ventilator Mechanical Ventilator Mechanical Ventilator Mechanical Ventilator 09/02/19 03:53 87 18 100 Mechanical Ventilator 40 90 18 40 09/02/19 03:31 94 29 143/79 (100) 99 09/02/19 03:00 110 30 97 09/02/19 02:00 96 25 163/58 (93) 99 09/02/19 01:00 86 19 139/72 (94) 100 09/02/19 01:00 134/63 09/02/19 00:41 91 18 40 09/02/19 00:30 87 18 135/65 (88) 100 09/02/19 00:00 45 09/02/19 00:00 98.4 99 26 164/100 (121) 09/02/19 00:00 79 09/02/19 00:00 Mechanical Ventilator Mechanical Ventilator Mechanical Ventilator Mechanical Ventilator 09/01/19 23:08 91 19 100 Mechanical Ventilator 40 93 18 40 09/01/19 22:45 80 18 134/63 (86) 100 09/01/19 22:15 98 19 142/69 (93) 99 09/01/19 21:15 102 22 149/67 (94) 98 09/01/19 21:10 107 25 40 09/01/19 21:00 102 18 153/72 (99) 100 09/01/19 20:30 107 22 126/90 (102) 100 09/01/19 20:27 163/80 09/01/19 20:15 100 24 163/80 (107) 97 09/01/19 20:00 45 09/01/19 20:00 99.0 83 18 169/71 (103) 100 09/01/19 20:00 88 09/01/19 20:00 Mechanical Ventilator Mechanical Ventilator Mechanical Ventilator Mechanical Ventilator 09/01/19 19:58 88 21 100 Mechanical Ventilator 40 90 20 40 09/01/19 19:30 82 19 168/77 (107) 100 09/01/19 19:00 75 18 168/76 (106) 100 09/01/19 18:44 74 160/66 09/01/19 18:00 71 19 156/57 (90) 100 09/01/19 17:47 141/57 09/01/19 17:00 76 18 129/61 (83) 100 09/01/19 16:50 88 18 40 3/19/20 16:00 45 09/01/19 16:00 98.3 97 26 142/66 (91) 100 09/01/19 16:00 Mechanical Ventilator Mechanical Ventilator Mechanical Ventilator Mechanical Ventilator 09/01/19 15:43 100 09/01/19 15:13 76 19 100 Mechanical Ventilator 40 80 18 40 09/01/19 15:00 80 24 145/62 (89) 100 09/01/19 14:00 74 20 148/70 (96) 99 09/01/19 13:00 88 25 137/84 (101) 98 09/01/19 12:37 72 27 40 09/01/19 12:00 98.5 76 18 140/67 (91) 100 09/01/19 12:00 45 09/01/19 12:00 76 18 100 Mechanical Ventilator 40 75 18 40 09/01/19 12:00 Mechanical Ventilator Mechanical Ventilator Mechanical Ventilator Mechanical Ventilator 09/01/19 11:19 68 09/01/19 11:09 142/59 09/01/19 11:00 71 18 144/58 (86) 100 Intake and Output 09/01/19 09/02/19 19:00 07:00 Intake Total 385 ml Output Total 30 ml Balance 385 ml -30 ml Intake Free Water 100 ml Tube Feeding 35 ml Blood Product 250 ml Output Urine Total 30 ml # Voids 2 # Bowel Movements 2 4 Current Medications Medications (Trade) Dose Ordered Sig/Javier Route PRN Reason Start Time Stop Time Status Last Admin Dose Admin Acetylcysteine (Mucomyst) 100 mg Q4HRT [facility] 08/31/19 19:00 11/29/19 18:59 09/02/19 07:04 Albuterol/ Ipratropium (Albuterol/ Ipratropium) 3 ml Q4HRT [facility] 08/31/19 19:00 09/05/19 18:59 09/02/19 07:04 Amlodipine Besylate (Norvasc) 5 mg BID NG 08/23/19 01:45 09/22/19 01:44 09/02/19 08:31 Atropine Sulfate (Atropine) 1 mg Q4H PRN IVP Per rx protocol 08/13/19 08:30 09/12/19 08:29 Chlorhexidine Gluconate (Nae-Hex 2%) 1 applic DAILY@1999 TOPIC 08/15/19 20:00 09/14/19 19:59 09/01/19 20:27 Dextrose (Dextrose 50%) 25 ml Q30M PRN IV Hypoglycemia 09/02/19 06:15 12/01/19 06:14 Dextrose (Dextrose 50%) 50 ml Q30M PRN IV Hypoglycemia 09/02/19 06:15 12/01/19 06:14 Dextrose/Sodium Chloride 1,000 ml @ 50 mls/hr Q20H IV 09/02/19 09:00 10/02/19 08:59 09/02/19 09:14 Diphenhydramine HCl (Benadryl) 50 mg Q4H PRN IVP Itching 08/09/19 14:30 09/08/19 14:29 08/13/19 02:39 Epoetin Thomas (Epoetin Thomas(ESRD on dialysis)) 4,000 unit SUBQ 08/12/19 21:00 09/11/19 20:59 08/31/19 20:35 Hydralazine HCl (Apresoline) 10 mg Q4H PRN IV For High Blood Pressure 08/18/19 12:44 09/17/19 12:43 09/01/19 20:27 Hydralazine HCl (Apresoline) 25 mg Q6HR NG 08/23/19 06:00 09/22/19 05:59 09/02/19 05:57 Lansoprazole (Prevacid) 30 mg BID GT 08/19/19 09:00 09/18/19 08:59 09/02/19 08:31 Levothyroxine Sodium (Synthroid) 50 mcg DAILY@0630 ORAL 08/25/19 06:30 09/24/19 06:29 09/02/19 05:57 Metoclopramide HCl (Reglan) 5 mg Q8H PRN IVP Nausea & Vomiting 08/09/19 12:39 09/08/19 12:38 Laboratory Tests 09/01/19 10:35: White Blood Count 9.0, Red Blood Count 3.04L, Hemoglobin 9.1#L, Hematocrit 27.4# L, Mean Corpuscular Volume 90, Mean Corpuscular Hemoglobin 30.0, Mean Corpuscular Hemoglobin Concent 33.3, Red Cell Distribution Width 16.1H, Platelet Count 263, Mean Platelet Volume 6.2L, Neutrophils (%) (Auto) 75.7H, Lymphocytes (%) (Auto) 20.0, Monocytes (%) (Auto) 3.4, Eosinophils (%) (Auto) 0.4, Basophils (%) (Auto) 0.5 09/02/19 03:40: White Blood Count 8.8, Red Blood Count 3.14L, Hemoglobin 9.6L, Hematocrit 27.5L , Mean Corpuscular Volume 88, Mean Corpuscular Hemoglobin 30.7, Mean Corpuscular Hemoglobin Concent 34.9, Red Cell Distribution Width 14.5, Platelet Count 230, Mean Platelet Volume 4.7L, Neutrophils (%) (Auto) 82.4H, Lymphocytes (%) (Auto) 14.3L, Monocytes (%) (Auto) 2.7, Eosinophils (%) (Auto) 0.3, Basophils (%) (Auto) 0.3, Prothrombin Time 11.2, Prothromb Time International Ratio 1.1, Activated Partial Thromboplast Time 29, Sodium Level 145, Potassium Level 3.7, Chloride Level 106, Carbon Dioxide Level 27, Anion Gap 12, Blood Urea Nitrogen 42H, Creatinine 3.1H, Estimat Glomerular Filtration Rate 14.5, Glucose Level 79, Calcium Level 9.2, Phosphorus Level 3.9, Magnesium Level 2.3, Total Bilirubin 0.6, Aspartate Amino Transf (AST/SGOT) 68H, Alanine Aminotransferase (ALT/SGPT) 36, Alkaline Phosphatase 115, C-Reactive Protein, Quantitative 26.4H, Pro-B-Type Natriuretic Peptide > 10496D, Total Protein 6.2L , Albumin 2.1L, Globulin 4.1, Albumin/Globulin Ratio 0.5L Height (Feet): 5 Height (Inches): 4.00 Weight (Pounds): 112 General Appearance: no apparent distress, lethargic EENT: other - Intubated and vented Cardiovascular: normal rate - Tachycardia at times Respiratory/Chest: decreased breath sounds Abdomen: distended Objective no change William Blackwood MD Sep 02, 2019 10:19
--- NOTE | 2019-09-02 11:24 | Infectious Diseases Prog Note ---
Assessment/Plan Assessment/Plan antibiotics : none A 1. jarad albicans fungemia s/p rx 2. right shoulder septic arthritis with staph aureus s/p rx 3. renal failure 4. thrombocytopenia resolved 7. diabetes mellitus 8. hypertension 9. respiratory failure P 1. observe off antibiotics 2. thoracentesis planned Subjective ROS Limited/Unobtainable: Yes Allergies: Coded Allergies: VANCOMYCIN (Unverified Allergy, Unknown, 08/02/19) Objective Vital Signs Last 24 Hour Vital Signs Date Time Temp Pulse Resp B/P (MAP) Pulse Ox O2 Delivery O2 Flow Rate FiO2 09/02/19 11:00 81 19 133/95 (108) 95 09/02/19 10:00 73 18 121/57 (78) 100 09/02/19 09:22 90 09/02/19 09:00 94 28 117/60 (79) 97 09/02/19 08:49 95 20 40 09/02/19 08:31 94 156/70 09/02/19 08:00 45 09/02/19 08:00 97.7 93 25 152/78 (102) 99 09/02/19 08:00 Mechanical Ventilator Mechanical Ventilator Mechanical Ventilator Mechanical Ventilator 09/02/19 07:20 86 18 100 Mechanical Ventilator 40 86 17 40 09/02/19 07:00 90 20 148/74 (98) 100 09/02/19 06:30 90 18 09/02/19 06:00 98.8 87 31 132/67 (88) 100 09/02/19 05:57 152/85 09/02/19 05:01 91 19 40 09/02/19 05:00 99 25 152/85 (107) 100 09/02/19 04:00 81 09/02/19 04:00 45 09/02/19 04:00 98.0 88 24 145/82 (103) 99 09/02/19 04:00 Mechanical Ventilator Mechanical Ventilator Mechanical Ventilator Mechanical Ventilator 09/02/19 03:53 87 18 100 Mechanical Ventilator 40 90 18 40 09/02/19 03:31 94 29 143/79 (100) 99 09/02/19 03:00 110 30 97 09/02/19 02:00 96 25 163/58 (93) 99 09/02/19 01:00 86 19 139/72 (94) 100 09/02/19 01:00 134/63 09/02/19 00:41 91 18 40 3/20/20 00:30 87 18 135/65 (88) 100 09/02/19 00:00 45 09/02/19 00:00 98.4 99 26 164/100 (121) 09/02/19 00:00 79 09/02/19 00:00 Mechanical Ventilator Mechanical Ventilator Mechanical Ventilator Mechanical Ventilator 09/01/19 23:08 91 19 100 Mechanical Ventilator 40 93 18 40 09/01/19 22:45 80 18 134/63 (86) 100 09/01/19 22:15 98 19 142/69 (93) 99 09/01/19 21:15 102 22 149/67 (94) 98 09/01/19 21:10 107 25 40 09/01/19 21:00 102 18 153/72 (99) 100 09/01/19 20:30 107 22 126/90 (102) 100 09/01/19 20:27 163/80 09/01/19 20:15 100 24 163/80 (107) 97 09/01/19 20:00 45 09/01/19 20:00 99.0 83 18 169/71 (103) 100 09/01/19 20:00 88 09/01/19 20:00 Mechanical Ventilator Mechanical Ventilator Mechanical Ventilator Mechanical Ventilator 09/01/19 19:58 88 21 100 Mechanical Ventilator 40 90 20 40 09/01/19 19:30 82 19 168/77 (107) 100 09/01/19 19:00 75 18 168/76 (106) 100 09/01/19 18:44 74 160/66 09/01/19 18:00 71 19 156/57 (90) 100 09/01/19 17:47 141/57 09/01/19 17:00 76 18 129/61 (83) 100 09/01/19 16:50 88 18 40 09/01/19 16:00 45 09/01/19 16:00 98.3 97 26 142/66 (91) 100 09/01/19 16:00 Mechanical Ventilator Mechanical Ventilator Mechanical Ventilator Mechanical Ventilator 09/01/19 15:43 100 09/01/19 15:13 76 19 100 Mechanical Ventilator 40 80 18 40 09/01/19 15:00 80 24 145/62 (89) 100 09/01/19 14:00 74 20 148/70 (96) 99 09/01/19 13:00 88 25 137/84 (101) 98 09/01/19 12:37 72 27 40 09/01/19 12:00 98.5 76 18 140/67 (91) 100 09/01/19 12:00 45 09/01/19 12:00 76 18 100 Mechanical Ventilator 40 75 18 40 09/01/19 12:00 Mechanical Ventilator Mechanical Ventilator Mechanical Ventilator Mechanical Ventilator Height (Feet): 5 Height (Inches): 4.00 Weight (Pounds): 110 Respiratory/Chest: lungs clear Cardiovascular: normal rate, regular rhythm, no gallop/murmur Abdomen: soft, non tender Extremities: no edema, other - right groin catheter Microbiology Date/Time Source Procedure Growth Status 09/01/19 17:30 Anus Stool Culture - Preliminary NORMAL FECAL FADIA. Resulted Laboratory Tests Test 09/02/19 03:40 White Blood Count 8.8 K/UL (4.8-10.8) Red Blood Count 3.14 M/UL (4.20-5.40) L Hemoglobin 9.6 G/DL (12.0-16.0) L Hematocrit 27.5 % (37.0-47.0) L Mean Corpuscular Volume 88 FL (80-99) Mean Corpuscular Hemoglobin 30.7 PG (27.0-31.0) Mean Corpuscular Hemoglobin Concent 34.9 G/DL (32.0-36.0) Red Cell Distribution Width 14.5 % (11.6-14.8) Platelet Count 230 K/UL (150-450) Mean Platelet Volume 4.7 FL (6.5-10.1) L Neutrophils (%) (Auto) 82.4 % (45.0-75.0) H Lymphocytes (%) (Auto) 14.3 % (20.0-45.0) L Monocytes (%) (Auto) 2.7 % (1.0-10.0) Eosinophils (%) (Auto) 0.3 % (0.0-3.0) Basophils (%) (Auto) 0.3 % (0.0-2.0) Prothrombin Time 11.2 SEC (9.30-11.50) Prothromb Time International Ratio 1.1 (0.9-1.1) Activated Partial Thromboplast Time 29 SEC (23-33) Sodium Level 145 MMOL/L (136-145) Potassium Level 3.7 MMOL/L (3.5-5.1) Chloride Level 106 MMOL/L (98-107) Carbon Dioxide Level 27 MMOL/L (21-32) Anion Gap 12 mmol/L (5-15) Blood Urea Nitrogen 42 mg/dL (7-18) H Creatinine 3.1 MG/DL (0.55-1.30) H Estimat Glomerular Filtration Rate 14.5 mL/min (>60) Glucose Level 79 MG/DL (74-106) Calcium Level 9.2 MG/DL (8.5-10.1) Phosphorus Level 3.9 MG/DL (2.5-4.9) Magnesium Level 2.3 MG/DL (1.8-2.4) Total Bilirubin 0.6 MG/DL (0.2-1.0) Aspartate Amino Transf (AST/SGOT) 68 U/L (15-37) H Alanine Aminotransferase (ALT/SGPT) 36 U/L (12-78) Alkaline Phosphatase 115 U/L (46-116) C-Reactive Protein, Quantitative 26.4 mg/dL (0.00-0.90) H Pro-B-Type Natriuretic Peptide > 45489 pg/mL (0-125) H Total Protein 6.2 G/DL (6.4-8.2) L Albumin 2.1 G/DL (3.4-5.0) L Globulin 4.1 g/dL Albumin/Globulin Ratio 0.5 (1.0-2.7) L Current Medications Medications (Trade) Dose Ordered Sig/Javier Route PRN Reason Start Time Stop Time Status Last Admin Dose Admin Acetylcysteine (Mucomyst) 100 mg Q4HRT [facility] 08/31/19 19:00 11/29/19 18:59 09/02/19 11:11 Albuterol/ Ipratropium (Albuterol/ Ipratropium) 3 ml Q4HRT [facility] 08/31/19 19:00 09/05/19 18:59 09/02/19 11:11 Amlodipine Besylate (Norvasc) 5 mg BID NG 08/23/19 01:45 09/22/19 01:44 09/02/19 08:31 Atropine Sulfate (Atropine) 1 mg Q4H PRN IVP Per rx protocol 08/13/19 08:30 09/12/19 08:29 Chlorhexidine Gluconate (Nae-Hex 2%) 1 applic DAILY@2000 TOPIC 08/15/19 20:00 09/14/19 19:59 09/01/19 20:27 Dextrose (Dextrose 50%) 25 ml Q30M PRN IV Hypoglycemia 09/02/19 06:15 12/01/19 06:14 Dextrose (Dextrose 50%) 50 ml Q30M PRN IV Hypoglycemia 09/02/19 06:15 12/01/19 06:14 Dextrose/Sodium Chloride 1,000 ml @ 50 mls/hr Q20H IV 09/02/19 09:00 10/02/19 08:59 09/02/19 09:14 Diphenhydramine HCl (Benadryl) 50 mg Q4H PRN IVP Itching 08/09/19 14:30 09/08/19 14:29 08/13/19 02:39 Epoetin Thomas (Epoetin Thomas(ESRD on dialysis)) 4,000 unit SUBQ 08/12/19 21:00 09/11/19 20:59 08/31/19 20:35 Hydralazine HCl (Apresoline) 10 mg Q4H PRN IV For High Blood Pressure 08/18/19 12:44 09/17/19 12:43 09/01/19 20:27 Hydralazine HCl (Apresoline) 25 mg Q6HR NG 08/23/19 06:00 09/22/19 05:59 09/02/19 05:57 Lansoprazole (Prevacid) 30 mg BID GT 08/19/19 09:00 09/18/19 08:59 09/02/19 08:31 Levothyroxine Sodium (Synthroid) 50 mcg DAILY@0630 ORAL 08/25/19 06:30 09/24/19 06:29 09/02/19 05:57 Metoclopramide HCl (Reglan) 5 mg Q8H PRN IVP Nausea & Vomiting 08/09/19 12:39 09/08/19 12:38 Melissa Solares MD Sep 02, 2019 11:24
--- NOTE | 2019-09-02 14:46 | General Progress Note ---
Assessment/Plan Problem List: (1) Failure to thrive (0-17) ICD Codes: R62.51 - Failure to thrive (0-17) SNOMED: 350702826 (2) Hypertensive kidney disease ICD Codes: I12.9 - Hypertensive chronic kidney disease with stage 1 through stage 4 chronic kidney disease, or unspecified chronic kidney disease SNOMED: 38479365 (3) Pneumonia ICD Codes: J18.9 - Pneumonia, unspecified organism SNOMED: 636505639 Qualifiers: Qualified Codes: J18.9 - Pneumonia, unspecified organism (4) ESRD (end stage renal disease) ICD Codes: N18.6 - End stage renal disease SNOMED: 72171358 (5) Septic arthritis ICD Codes: M00.9 - Pyogenic arthritis, unspecified SNOMED: 954961154 (6) Thrombocytopenia ICD Codes: D69.6 - Thrombocytopenia, unspecified SNOMED: 517910777 (7) Hypotension ICD Codes: I95.9 - Hypotension, unspecified SNOMED: 66664515 Qualifiers: Qualified Codes: I95.3 - Hypotension of hemodialysis (8) Malnutrition ICD Codes: E46 - Unspecified protein-calorie malnutrition SNOMED: 65029786 Status: stable, not improved, unchanged, deteriorating Assessment/Plan: cont resp care chest pt/suctioning resp rx monitor cbc transfuse as needed check chest ct reviewed cont weaning- try simv monitor plts iv PPI iv abx HD bp rx 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 d/w son franca both want to proceed with chest tube and trach if needed Subjective ROS Limited/Unobtainable: No Constitutional: Reports: malaise, weakness HEENT: Reports: no symptoms Cardiovascular: Reports: no symptoms Respiratory: Reports: shortness of breath, sputum Gastrointestinal/Abdominal: Reports: difficulty swallowing Genitourinary: Reports: no symptoms Neurologic/Psychiatric: Reports: pre-existing deficit Endocrine: Reports: no symptoms Hematologic/Lymphatic: Reports: anemia Allergies: Coded Allergies: VANCOMYCIN (Unverified Allergy, Unknown, 08/02/19) All Systems: reviewed and negative except above Subjective s/p [address] chest consistent with hemothorax. Per surgery- chest tube needed. Objective Last 24 Hour Vital Signs Date Time Temp Pulse Resp B/P (MAP) Pulse Ox O2 Delivery O2 Flow Rate FiO2 09/02/19 14:00 76 22 144/66 (92) 94 09/02/19 13:28 68 18 40 09/02/19 13:00 67 19 131/61 (84) 100 09/02/19 12:01 80 09/02/19 12:00 97.4 82 21 140/64 (89) 96 09/02/19 12:00 45 09/02/19 12:00 140/64 09/02/19 12:00 Mechanical Ventilator Mechanical Ventilator Mechanical Ventilator Mechanical Ventilator 09/02/19 11:26 92 18 99 Mechanical Ventilator 40 92 18 40 09/02/19 11:00 81 19 133/95 (108) 95 09/02/19 10:00 73 18 121/57 (78) 100 09/02/19 09:22 90 09/02/19 09:00 94 28 117/60 (79) 97 09/02/19 08:49 95 20 40 09/02/19 08:31 94 156/70 09/02/19 08:00 45 09/02/19 08:00 97.7 93 25 152/78 (102) 99 09/02/19 08:00 Mechanical Ventilator Mechanical Ventilator Mechanical Ventilator Mechanical Ventilator 09/02/19 07:20 86 18 100 Mechanical Ventilator 40 86 17 40 09/02/19 07:00 90 20 148/74 (98) 100 09/02/19 06:30 90 18 09/02/19 06:00 98.8 87 31 132/67 (88) 100 09/02/19 05:57 152/85 09/02/19 05:01 91 19 40 09/02/19 05:00 99 25 152/85 (107) 100 09/02/19 04:00 81 09/02/19 04:00 45 09/02/19 04:00 98.0 88 24 145/82 (103) 99 09/02/19 04:00 Mechanical Ventilator Mechanical Ventilator Mechanical Ventilator Mechanical Ventilator 09/02/19 03:53 87 18 100 Mechanical Ventilator 40 90 18 40 09/02/19 03:31 94 29 143/79 (100) 99 09/02/19 03:00 110 30 97 09/02/19 02:00 96 25 163/58 (93) 99 09/02/19 01:00 86 19 139/72 (94) 100 09/02/19 01:00 134/63 09/02/19 00:41 91 18 40 09/02/19 00:30 87 18 135/65 (88) 100 09/02/19 00:00 45 09/02/19 00:00 98.4 99 26 164/100 (121) 09/02/19 00:00 79 09/02/19 00:00 Mechanical Ventilator Mechanical Ventilator Mechanical Ventilator Mechanical Ventilator 09/01/19 23:08 91 19 100 Mechanical Ventilator 40 93 18 40 09/01/19 22:45 80 18 134/63 (86) 100 09/01/19 22:15 98 19 142/69 (93) 99 09/01/19 21:15 102 22 149/67 (94) 98 09/01/19 21:10 107 25 40 09/01/19 21:00 102 18 153/72 (99) 100 09/01/19 20:30 107 22 126/90 (102) 100 09/01/19 20:27 163/80 09/01/19 20:15 100 24 163/80 (107) 97 09/01/19 20:00 45 09/01/19 20:00 99.0 83 18 169/71 (103) 100 09/01/19 20:00 88 09/01/19 20:00 Mechanical Ventilator Mechanical Ventilator Mechanical Ventilator Mechanical Ventilator 09/01/19 19:58 88 21 100 Mechanical Ventilator 40 90 20 40 09/01/19 19:30 82 19 168/77 (107) 100 09/01/19 19:00 75 18 168/76 (106) 100 09/01/19 18:44 74 160/66 09/01/19 18:00 71 19 156/57 (90) 100 09/01/19 17:47 141/57 09/01/19 17:00 76 18 129/61 (83) 100 09/01/19 16:50 88 18 40 09/01/19 16:00 45 09/01/19 16:00 98.3 97 26 142/66 (91) 100 09/01/19 16:00 Mechanical Ventilator Mechanical Ventilator Mechanical Ventilator Mechanical Ventilator 09/01/19 15:43 100 09/01/19 15:13 76 19 100 Mechanical Ventilator 40 80 18 40 09/01/19 15:00 80 24 145/62 (89) 100 Intake and Output 09/01/19 09/02/19 19:00 07:00 Intake Total 385 ml Output Total 30 ml Balance 385 ml -30 ml Intake Free Water 100 ml Tube Feeding 35 ml Blood Product 250 ml Output Urine Total 30 ml # Voids 2 # Bowel Movements 2 4 Laboratory Tests 09/02/19 03:40: White Blood Count 8.8, Red Blood Count 3.14L, Hemoglobin 9.6L, Hematocrit 27.5L , Mean Corpuscular Volume 88, Mean Corpuscular Hemoglobin 30.7, Mean Corpuscular Hemoglobin Concent 34.9, Red Cell Distribution Width 14.5, Platelet Count 230, Mean Platelet Volume 4.7L, Neutrophils (%) (Auto) 82.4H, Lymphocytes (%) (Auto) 14.3L, Monocytes (%) (Auto) 2.7, Eosinophils (%) (Auto) 0.3, Basophils (%) (Auto) 0.3, Prothrombin Time 11.2, Prothromb Time International Ratio 1.1, Activated Partial Thromboplast Time 29, Sodium Level 145, Potassium Level 3.7, Chloride Level 106, Carbon Dioxide Level 27, Anion Gap 12, Blood Urea Nitrogen 42H, Creatinine 3.1H, Estimat Glomerular Filtration Rate 14.5, Glucose Level 79, Calcium Level 9.2, Phosphorus Level 3.9, Magnesium Level 2.3, Total Bilirubin 0.6, Aspartate Amino Transf (AST/SGOT) 68H, Alanine Aminotransferase (ALT/SGPT) 36, Alkaline Phosphatase 115, C-Reactive Protein, Quantitative 26.4H, Pro-B-Type Natriuretic Peptide > 36094E, Total Protein 6.2L , Albumin 2.1L, Globulin 4.1, Albumin/Globulin Ratio 0.5L Height (Feet): 5 Height (Inches): 4.00 Weight (Pounds): 110 Objective General Appearance: WD/WN, awake/moaning. orally intubated Neck: supple Cardiovascular: normal rate Respiratory/Chest: rhonchi - bilaterally Abdomen: normal bowel sounds, non tender, soft, no organomegaly Edema: no edema noted Arm (L), no edema noted Arm (R), no edema noted Leg (L), no edema noted Leg (R), no edema noted Pedal (L), no edema noted Pedal (R), no edema noted Generalized Neurologic: disoriented, aphasia Nate Beltran MD Sep 02, 2019 14:46
--- NOTE | 2019-09-02 16:10 | Surgery Progress Note ---
Surgery Progress Note Subjective Procedure Performed Right Femoral Temporary Hemodialysis catheter Insertion Additional Comments CT noted chest tube needed discussed with son who consented and states she wanted everthing Objective Last 24 Hour Vital Signs Date Time Temp Pulse Resp B/P (MAP) Pulse Ox O2 Delivery O2 Flow Rate FiO2 09/02/19 15:20 73 18 100 Mechanical Ventilator 40 76 18 40 09/02/19 15:00 74 23 147/71 (96) 100 09/02/19 14:00 76 22 144/66 (92) 94 09/02/19 13:28 68 18 40 09/02/19 13:00 67 19 131/61 (84) 100 09/02/19 12:01 80 09/02/19 12:00 97.4 82 21 140/64 (89) 96 09/02/19 12:00 45 09/02/19 12:00 140/64 09/02/19 12:00 Mechanical Ventilator Mechanical Ventilator Mechanical Ventilator Mechanical Ventilator 09/02/19 11:26 92 18 99 Mechanical Ventilator 40 92 18 40 09/02/19 11:00 81 19 133/95 (108) 95 09/02/19 10:00 73 18 121/57 (78) 100 09/02/19 09:22 90 09/02/19 09:00 94 28 117/60 (79) 97 09/02/19 08:49 95 20 40 09/02/19 08:31 94 156/70 09/02/19 08:00 45 09/02/19 08:00 97.7 93 25 152/78 (102) 99 09/02/19 08:00 Mechanical Ventilator Mechanical Ventilator Mechanical Ventilator Mechanical Ventilator 09/02/19 07:20 86 18 100 Mechanical Ventilator 40 86 17 40 09/02/19 07:00 90 20 148/74 (98) 100 09/02/19 06:30 90 18 09/02/19 06:00 98.8 87 31 132/67 (88) 100 09/02/19 05:57 152/85 09/02/19 05:01 91 19 40 09/02/19 05:00 99 25 152/85 (107) 100 09/02/19 04:00 81 09/02/19 04:00 45 09/02/19 04:00 98.0 88 24 145/82 (103) 99 09/02/19 04:00 Mechanical Ventilator Mechanical Ventilator Mechanical Ventilator Mechanical Ventilator 09/02/19 03:53 87 18 100 Mechanical Ventilator 40 90 18 40 09/02/19 03:31 94 29 143/79 (100) 99 09/02/19 03:00 110 30 97 09/02/19 02:00 96 25 163/58 (93) 99 09/02/19 01:00 86 19 139/72 (94) 100 09/02/19 01:00 134/63 09/02/19 00:41 91 18 40 09/02/19 00:30 87 18 135/65 (88) 100 09/02/19 00:00 45 09/02/19 00:00 98.4 99 26 164/100 (121) 09/02/19 00:00 79 09/02/19 00:00 Mechanical Ventilator Mechanical Ventilator Mechanical Ventilator Mechanical Ventilator 09/01/19 23:08 91 19 100 Mechanical Ventilator 40 93 18 40 09/01/19 22:45 80 18 134/63 (86) 100 09/01/19 22:15 98 19 142/69 (93) 99 09/01/19 21:15 102 22 149/67 (94) 98 09/01/19 21:10 107 25 40 09/01/19 21:00 102 18 153/72 (99) 100 09/01/19 20:30 107 22 126/90 (102) 100 09/01/19 20:27 163/80 09/01/19 20:15 100 24 163/80 (107) 97 09/01/19 20:00 45 09/01/19 20:00 99.0 83 18 169/71 (103) 100 09/01/19 20:00 88 09/01/19 20:00 Mechanical Ventilator Mechanical Ventilator Mechanical Ventilator Mechanical Ventilator 09/01/19 19:58 88 21 100 Mechanical Ventilator 40 90 20 40 09/01/19 19:30 82 19 168/77 (107) 100 09/01/19 19:00 75 18 168/76 (106) 100 09/01/19 18:44 74 160/66 09/01/19 18:00 71 19 156/57 (90) 100 09/01/19 17:47 141/57 09/01/19 17:00 76 18 129/61 (83) 100 09/01/19 16:50 88 18 40 I&O Intake and Output 09/01/19 09/02/19 19:00 07:00 Intake Total 385 ml Output Total 30 ml Balance 385 ml -30 ml Intake Free Water 100 ml Tube Feeding 35 ml Blood Product 250 ml Output Urine Total 30 ml # Voids 2 # Bowel Movements 2 4 Dressing: other Wound: other Drains: other Cardiovascular: RSR Respiratory: decreased breath sounds Abdomen: soft, present bowel sounds, non-distended Extremities: no edema, no tenderness, no cyanosis Laboratory Tests Test 09/02/19 03:40 White Blood Count 8.8 K/UL (4.8-10.8) Red Blood Count 3.14 M/UL (4.20-5.40) L Hemoglobin 9.6 G/DL (12.0-16.0) L Hematocrit 27.5 % (37.0-47.0) L Mean Corpuscular Volume 88 FL (80-99) Mean Corpuscular Hemoglobin 30.7 PG (27.0-31.0) Mean Corpuscular Hemoglobin Concent 34.9 G/DL (32.0-36.0) Red Cell Distribution Width 14.5 % (11.6-14.8) Platelet Count 230 K/UL (150-450) Mean Platelet Volume 4.7 FL (6.5-10.1) L Neutrophils (%) (Auto) 82.4 % (45.0-75.0) H Lymphocytes (%) (Auto) 14.3 % (20.0-45.0) L Monocytes (%) (Auto) 2.7 % (1.0-10.0) Eosinophils (%) (Auto) 0.3 % (0.0-3.0) Basophils (%) (Auto) 0.3 % (0.0-2.0) Prothrombin Time 11.2 SEC (9.30-11.50) Prothromb Time International Ratio 1.1 (0.9-1.1) Activated Partial Thromboplast Time 29 SEC (23-33) Sodium Level 145 MMOL/L (136-145) Potassium Level 3.7 MMOL/L (3.5-5.1) Chloride Level 106 MMOL/L (98-107) Carbon Dioxide Level 27 MMOL/L (21-32) Anion Gap 12 mmol/L (5-15) Blood Urea Nitrogen 42 mg/dL (7-18) H Creatinine 3.1 MG/DL (0.55-1.30) H Estimat Glomerular Filtration Rate 14.5 mL/min (>60) Glucose Level 79 MG/DL (74-106) Calcium Level 9.2 MG/DL (8.5-10.1) Phosphorus Level 3.9 MG/DL (2.5-4.9) Magnesium Level 2.3 MG/DL (1.8-2.4) Total Bilirubin 0.6 MG/DL (0.2-1.0) Aspartate Amino Transf (AST/SGOT) 68 U/L (15-37) H Alanine Aminotransferase (ALT/SGPT) 36 U/L (12-78) Alkaline Phosphatase 115 U/L (46-116) C-Reactive Protein, Quantitative 26.4 mg/dL (0.00-0.90) H Pro-B-Type Natriuretic Peptide > 13644 pg/mL (0-125) H Total Protein 6.2 G/DL (6.4-8.2) L Albumin 2.1 G/DL (3.4-5.0) L Globulin 4.1 g/dL Albumin/Globulin Ratio 0.5 (1.0-2.7) L Assessment Post-op Diagnosis same Plan Problems: (1) Malnutrition Assessment & Plan: DAILY ESTIMATED NEEDS: Needs based on ESRD+ HD, underweight, wound/ 39.5kg 35-40 kcals/kg 7437-3862 total kcals 1.25-1.8 g protein/kg 49-71 g total protein 20-22 mL/kg 790-869 total fluid mLs NUTRITION DIAGNOSIS: * Increased kcal and protein needs r/t underweight status, HD needs, wuond healing as evidenced by pt is underweight per guidelines, ESRD, on HD, admitted non-blanching erythema wounds @ BL heels and sacrum * Swallowing difficulty R/T dysphagia as evidenced by ASSOCIATE PROFESSOR OF PATHOLOGY recommends temporary nonoral feeding at this time, s/p NGT insertion, on NGT feeding-> now s/p self removal, NPO. CURRENT TF:NPO PO DIET RECOMMENDATIONS: WHEN SAFE FOR ORAL DIET -> renal/ texture per ASSOCIATE PROFESSOR OF PATHOLOGY ENTERAL NUTRITION RECOMMENDATIONS: W/ GI access: Nepro @ 35ml/hr x 22 hrs to provide 770ml, 1386kcal, 62g prot, 560ml free water * W/ GI access, resume TF on Nepro * Initiate Nepro @ 15ml/hr x 6 hrs, advance 10ml q 4-6 hrs as tolerated to goal rate. * Hold 1 hour before and after Synthroid med * HOB over 30 degrees/ water flush per MD. ADDITIONAL RECOMMENDATIONS: 1) Calibrated bed scale wt for accurate CBW -> daily wt monitoring Per HD record: dry wt on 07/30=39.5kg (87lbs) 2) Wound care: (W/ GI access) add Nephorivte x 1 + Balta BID 3) Monitor NPO status: without GI access at this time, s/p pulling out NGT 4) Monitor for hypoglycemia while NPO 5) Monitor for continuity of HD (2) Septic arthritis Assessment & Plan: Pt presented on admission with generalized scaly rash . pt noted to be restless and scratching at skin. Bleeding from oral mucosa noted. Joint deformity noted to R shoulder. Surgical incision approximated with 11 sutures. Erythema but no exudate,or elevation in skin temp at site of incision. Historical incision R hip that is tunneled.Small amt seropurulent exudate noted. Periwound is erythematous,but no elevation in skin temp noted. No odor noted. Non-blanching erythema noted to sacrum. Perianal area is erythematous and excoriated. L heel is boggy with non-blanching erythema. R heel is soft with non-blanching erythema. No evidence of skin breakdown to all other bony prominences. Tx.plan: Cover R shoulder with Drsg and change daily and prn. Cleanse R hip wound with Saline. Apply Therahoney.Apply Cavilon Skin Barrier periwound. Cover with Optifoam drsg. Change every 3 days and prn. Apply Moisture Barrier Paste to perianal area and buttocks. Cover Sacrum with Optifoam drsg. Change every 3 days and prn. Apply Cavilon Skin Barrier to both heels. Cover each heel with Optifoam drsg. Change every 7 days and prn. APM/ELVIA Mattress overlay. Reposition at least every 2hours or as tolerated. Off-load heels with pillow. HD cath necessary HD as renal likely will need intubation (3) Wound, open, hip or thigh with complication Assessment & Plan: slow healing will need nutritional optimization difficult ng tube peg when stable sutures removed from right shoulder comfortable wean vent may need trach (4) Abscess of right hip (5) possible septic arthritis (6) Renal failure (ARF), acute on chronic Assessment & Plan: cont HD will need tunneled cath placement okay to use fem line for now but will need change soon. line monitored and clean dressings going well (7) Pneumonia Assessment & Plan: intubated on vent support not tolerating weaning may need trach hemothorax likely after thoracentesis pending chest CT chest tube can be considered but overall prognosis is very poor Camilo James Sep 02, 2019 16:10
[2019-09-02] MEDS ORDERED: Lidocaine 1% 10mg/ml/Epi 0.005mg/ml 10ml vial IV ONE (16:30)
--- NOTE | 2019-09-02 17:04 | Operative Note - PDOC ---
Operative Note Operative Note Chief Complaint: left hemothorax Pre-op Diagnosis: left hemothorax Procedure: left chest tube insertion Post-op Diagnosis: same Post-op Diagnosis: same as pre-op Surgeon: jose alfredo james Anesthesia: local Specimen: none Complications: none Condition: stable Fluids: n/a Estimated Blood Loss: volume - 2L Drains: none Implant(s) used?: No Indications for Procedure 79F large left hemothorax. son consented. states she wants everything done. consent obtained. tube thoracostomy indicated and recommended. Description of Procedure patient positioned in ICU at bedside in supine position. left arm elevated. left chest prepped and draped. local anesthetic infiltrated. anatomy identified. skin incision made and dissected down to ribs. chest entered and quick flow of blood identified. over 1L poured out. chest tube placed and sutured in place. placed to plurovac and 1L evacuated. cxr ordered. dressings applied. tolerated well without complication. Jose Alfredo James Sep 02, 2019 17:04
--- NOTE | 2019-09-02 17:26 | Diagnostic Imaging Report ---
Indication: Post chest tube placement Technique: One view of the chest Comparison: 08/30/2019 Findings: Interim evacuation of previously demonstrated left pneumothorax. This appears to be complete. There is a chest tube in place. No pneumothorax. The left hemidiaphragm remains obscured, may reflect some residual hemothorax or pleural fluid. There is some retrocardiac consolidation or atelectasis. There is some right infrahilar atelectasis. Endotracheal tube tip projects 1 cm above the reese. There is right basilar atelectasis. There is a small amount of pleural fluid on the right. A gastrostomy is noted Impression: Evacuation of previously demonstrated left pneumothorax, with chest tube in place. No unusual features Slightly low position of endotracheal tube. Patient's nurse notified of this at the time of interpretation. Right basilar atelectasis, right infrahilar atelectasis, and small amount of right pleural effusion
[2019-09-02] MEDS: Epoetin Alfa-EPBX(ESRD on dialysis)4000 units/ml vial SUBQ SCH (21:10)
[2019-09-02] MEDS: Dyna-Hex 2% Top Sol 2oz TOPIC SCH (21:10)
--- NOTE | 2019-09-02 22:07 | Diagnostic Imaging Report ---
EXAM: XR Chest, 1 View CLINICAL HISTORY: TUBE PLCMT TECHNIQUE: Frontal view of the chest. COMPARISON: No relevant prior studies available. FINDINGS: Lungs: Heterogeneous airspace opacity within the lingula, atelectasis versus infiltrate. Bibasilar atelectasis. Pleural space: Small pleural effusions. No pneumothorax. Heart: Unremarkable. No cardiomegaly. Tubes, lines and devices: The endotracheal tube terminates 3.5 cm above the reese. Left-sided chest tube in place. IMPRESSION: 1. The endotracheal tube terminates 3.5 cm above the reese. 2. Left-sided chest tube in place. 3. Heterogeneous airspace opacity within the lingula, atelectasis versus infiltrate. 4. Small pleural effusions.
[2019-09-03] VITALS (24 sets, daily range): BP systolic 112–148; BP diastolic 53–118
[2019-09-03] MEDS: HydrALAZINE 25mg tab NG SCH ×4 (00:44→18:08)
[2019-09-03] MEDS: D5 1/2NS 1,000 ML IV SCH (00:44)
--- NOTE | 2019-09-03 02:45 | Progress Note ---
DATE: 09/02/2019 CARDIOLOGY PROGRESS NOTE SUBJECTIVE: The patient's condition remains critical. Prognosis is guarded. She remains in the intensive care unit. She developed a hemothorax several days ago and a chest tube was placed today for drainage. Monitored rhythm, sinus. The patient remains orally intubated and mechanically ventilated. She is off pressors. PHYSICAL EXAMINATION: VITAL SIGNS: Blood pressure 129/62, heart rate 78, respiratory rate 18, and no fevers. LUNGS: Bilateral breath sounds. Rhonchi and rales at the left. CARDIAC: Regular rhythm and rate. Normal S1 and S2. No appreciable murmur due to respiratory sounds. ABDOMEN: Soft. EXTREMITIES: No edema. LABORATORY DATA: White count 8.8 and hemoglobin 9.6. Sodium 145, potassium 3.7, bicarb 27, BUN 42, and creatinine 3.1. IMPRESSION: 1. Critical and guarded. 2. Left hemothorax, status post chest tube. 3. End-stage renal disease, on hemodialysis. 4. Respiratory failure, on full ventilator support and presently not weanable. 5. Sinus node disease with resolved bradycardia. 6. Hypothyroidism, on replacement therapy. 7. Hypertensive heart disease with controlled blood pressure. 8. Acute on chronic diastolic congestive heart failure, better compensated. PLAN: 1. ICU care plan reviewed and updated, and discussed with nursing staff and consultants. 2. Family members and the patient continued to request Full Code and aggressive support. Abel Stubbs M.D. DR: ARETHA JOB#: [id number] CC:
[2019-09-03] MEDS: Albuterol/Ipratropium 3ml neb HHN SCH ×6 (03:45→23:11)
[2019-09-03] MEDS: DiphenhydrAMINE 50mg/ml Inj IVP PRN ×2 (03:49→18:08)
[2019-09-03 05:14] LABS: BASOPHILS % (AUTO) 0.3 % (0.0-2.0); EOSINOPHILS % (AUTO) 0.7 % (0.0-3.0); HEMATOCRIT 31.2 % (37.0-47.0); HEMOGLOBIN 10.8 G/DL (12.0-16.0); LYMPHOCYTES % (AUTO) 15.3 % (20.0-45.0); MEAN CORPUSCULAR VOLUME 88 FL (80-99); MONOCYTES % (AUTO) 4.1 % (1.0-10.0); NEUTROPHILS % (AUTO) 79.7 % (45.0-75.0); PLATELET COUNT 289 K/UL (150-450); RED BLOOD COUNT 3.55 M/UL (4.20-5.40); RED CELL DISTRIBUTION WIDTH 14.7 % (11.6-14.8); WHITE BLOOD COUNT 6.4 K/UL (4.8-10.8)
[2019-09-03 05:39] LABS: ALANINE AMINOTRANSFERASE 28 U/L (12-78); ALBUMIN 2.2 G/DL (3.4-5.0); ALBUMIN/GLOBULIN RATIO 0.5 (1.0-2.7); ALKALINE PHOSPHATASE 117 U/L (46-116); ANION GAP 12 mmol/L (5-15); ASPARTATE AMINO TRANSFERASE 47 U/L (15-37); BILIRUBIN,TOTAL 0.6 MG/DL (0.2-1.0); BLOOD UREA NITROGEN 45 mg/dL (7-18); CALCIUM 9.2 MG/DL (8.5-10.1); CARBON DIOXIDE 27 MMOL/L (21-32); CHLORIDE 104 MMOL/L (98-107); CREATININE 3.5 MG/DL (0.55-1.30); POTASSIUM 3.6 MMOL/L (3.5-5.1); SODIUM 143 MMOL/L (136-145)
[2019-09-03] MEDS: Acetaminophen 650mg/20.3ml GT PRN (08:36)
[2019-09-03] MEDS ORDERED: NS 275ml ONE ×2 (09:39→10:09)
[2019-09-03] MEDS ORDERED: Tubing IV Blood Pump IV ONE (09:39)
[2019-09-03] MEDS ORDERED: NS 500ML ONE (09:39)
[2019-09-03] MEDS ORDERED: D5 1/2NS 1000ml IV ONE (10:09)
[2019-09-03] MEDS ORDERED: NS Irrig 1000ml ONE (10:09)
--- NOTE | 2019-09-03 10:15 | General Progress Note ---
Assessment/Plan Status: stable, not improved, unchanged, deteriorating Assessment/Plan: Assessment/Plan Status: stable, not improved, unchanged, deteriorating Assessment/Plan: Assessment - Severe ulcerative esophagitis on endoscopy - on BID PPI - Resp failure - thrombocytopenia --> resolved - Renal failure - aspiration risk --> s/p PEG - anemia - bradycardia - Poor prognosis Recommendations - TF on hold - s/p blood transfusion -fu H&H and transfuse prn - elevate HOB - monitor H&H -s/p Chest tube placement - poor prognosis Subjective ROS Limited/Unobtainable: No Allergies: Coded Allergies: VANCOMYCIN (Unverified Allergy, Unknown, 08/02/19) Subjective s/p blood transfusion Objective Last 24 Hour Vital Signs Date Time Temp Pulse Resp B/P (MAP) Pulse Ox O2 Delivery O2 Flow Rate FiO2 09/03/19 09:18 90 18 40 09/03/19 09:00 89 16 136/83 (100) 100 09/03/19 08:35 92 149/86 09/03/19 08:00 45 09/03/19 08:00 Mechanical Ventilator Mechanical Ventilator Mechanical Ventilator Mechanical Ventilator 09/03/19 08:00 97.3 94 15 148/112 (124) 100 09/03/19 08:00 89 09/03/19 07:40 96 09/03/19 07:00 88 23 140/76 (97) 100 09/03/19 06:45 89 18 100 Mechanical Ventilator 40 92 18 40 09/03/19 06:30 90 18 09/03/19 06:05 137/76 09/03/19 06:00 93 28 137/76 (96) 100 09/03/19 05:31 92 18 40 09/03/19 05:00 93 21 134/72 (92) 100 09/03/19 04:00 45 09/03/19 04:00 Mechanical Ventilator Mechanical Ventilator Mechanical Ventilator Mechanical Ventilator 09/03/19 04:00 97.9 92 19 128/71 (90) 100 09/03/19 04:00 93 09/03/19 03:46 88 19 100 Mechanical Ventilator 40 91 18 40 09/03/19 03:00 93 30 140/68 (92) 100 09/03/19 02:00 97 23 144/69 (94) 100 09/03/19 01:42 94 19 40 09/03/19 01:00 95 20 135/64 (87) 100 09/03/19 00:44 127/60 09/03/19 00:00 45 09/03/19 00:00 97.8 90 18 127/60 (82) 100 09/03/19 00:00 81 09/03/19 00:00 Mechanical Ventilator Mechanical Ventilator Mechanical Ventilator Mechanical Ventilator 09/02/19 23:16 78 18 100 Mechanical Ventilator 40 83 18 40 09/02/19 23:00 78 18 129/62 (84) 100 09/02/19 22:00 81 18 141/64 (89) 100 09/02/19 21:09 79 18 40 09/02/19 21:00 86 20 137/69 (91) 100 09/02/19 20:00 98.0 86 18 138/62 (87) 100 09/02/19 20:00 89 09/02/19 20:00 Mechanical Ventilator Mechanical Ventilator Mechanical Ventilator Mechanical Ventilator 09/02/19 20:00 45 09/02/19 19:20 85 18 100 Mechanical Ventilator 40 87 18 40 09/02/19 19:00 91 18 137/65 (89) 100 09/02/19 18:29 79 156/70 09/02/19 18:29 156/70 09/02/19 18:00 89 21 159/68 (98) 100 09/02/19 17:16 86 18 40 09/02/19 17:00 82 19 143/70 (94) 100 09/02/19 16:00 45 09/02/19 16:00 97.3 72 18 132/63 (86) 100 09/02/19 16:00 Mechanical Ventilator Mechanical Ventilator Mechanical Ventilator Mechanical Ventilator 09/02/19 15:20 73 18 100 Mechanical Ventilator 40 76 18 40 09/02/19 15:10 93 09/02/19 15:00 74 23 147/71 (96) 100 09/02/19 14:00 76 22 144/66 (92) 94 09/02/19 13:28 68 18 40 09/02/19 13:00 67 19 131/61 (84) 100 09/02/19 12:01 80 09/02/19 12:00 97.4 82 21 140/64 (89) 96 09/02/19 12:00 45 09/02/19 12:00 140/64 3/20/20 12:00 Mechanical Ventilator Mechanical Ventilator Mechanical Ventilator Mechanical Ventilator 09/02/19 11:26 92 18 99 Mechanical Ventilator 40 92 18 40 09/02/19 11:00 81 19 133/95 (108) 95 Intake and Output 09/02/19 09/03/19 19:00 07:00 Intake Total 488.333 ml 600 ml Output Total 2430 ml 420 ml Balance -1941.667 ml 180 ml IV Total 488.333 ml 600 ml Output Urine Total 430 ml 335 ml Chest Tube Drainage Total 2000 ml 85 ml Laboratory Tests 09/03/19 04:20: White Blood Count 6.4, Red Blood Count 3.55L, Hemoglobin 10.8L, Hematocrit 31.2L , Mean Corpuscular Volume 88, Mean Corpuscular Hemoglobin 30.3, Mean Corpuscular Hemoglobin Concent 34.5, Red Cell Distribution Width 14.7, Platelet Count 289, Mean Platelet Volume 4.9L, Neutrophils (%) (Auto) 79.7H, Lymphocytes (%) (Auto) 15.3L, Monocytes (%) (Auto) 4.1, Eosinophils (%) (Auto) 0.7, Basophils (%) (Auto) 0.3, Sodium Level 143, Potassium Level 3.6, Chloride Level 104, Carbon Dioxide Level 27, Anion Gap 12, Blood Urea Nitrogen 45H, Creatinine 3.5H, Estimat Glomerular Filtration Rate 12.6, Glucose Level 123H, Calcium Level 9.2, Total Bilirubin 0.6, Aspartate Amino Transf (AST/SGOT) 47H, Alanine Aminotransferase (ALT/SGPT) 28, Alkaline Phosphatase 117H, Total Protein 6.8, Albumin 2.2L, Globulin 4.6, Albumin/Globulin Ratio 0.5L Height (Feet): 5 Height (Inches): 4.00 Weight (Pounds): 110 General Appearance: lethargic EENT: normal ENT inspection Neck: supple Cardiovascular: tachycardia Respiratory/Chest: decreased breath sounds, other - Chest tube in place Extremities: non-tender Kenny Rudolph MD Sep 03, 2019 10:15
--- NOTE | 2019-09-03 10:59 | General Progress Note ---
Assessment/Plan Problem List: (1) Failure to thrive (0-17) ICD Codes: R62.51 - Failure to thrive (0-17) SNOMED: 570371222 (2) Hypertensive kidney disease ICD Codes: I12.9 - Hypertensive chronic kidney disease with stage 1 through stage 4 chronic kidney disease, or unspecified chronic kidney disease SNOMED: 30233861 (3) Pneumonia ICD Codes: J18.9 - Pneumonia, unspecified organism SNOMED: 467602602 Qualifiers: Qualified Codes: J18.9 - Pneumonia, unspecified organism (4) ESRD (end stage renal disease) ICD Codes: N18.6 - End stage renal disease SNOMED: 22615005 (5) Septic arthritis ICD Codes: M00.9 - Pyogenic arthritis, unspecified SNOMED: 132856325 (6) Thrombocytopenia ICD Codes: D69.6 - Thrombocytopenia, unspecified SNOMED: 446160400 (7) Hypotension ICD Codes: I95.9 - Hypotension, unspecified SNOMED: 28690790 Qualifiers: Qualified Codes: I95.3 - Hypotension of hemodialysis (8) Malnutrition ICD Codes: E46 - Unspecified protein-calorie malnutrition SNOMED: 10341066 Status: stable, not improved, unchanged, deteriorating Assessment/Plan: cont resp care chest pt/suctioning resp rx monitor cbc transfuse as needed check chest ct reviewed cont weaning- try simv monitor plts iv PPI iv abx HD bp rx d/w pt with english rubble placer. d/w son franca Subjective ROS Limited/Unobtainable: No Constitutional: Reports: malaise, weakness HEENT: Reports: no symptoms Cardiovascular: Reports: no symptoms Respiratory: Reports: no symptoms Gastrointestinal/Abdominal: Reports: no symptoms Genitourinary: Reports: no symptoms Neurologic/Psychiatric: Reports: no symptoms Endocrine: Reports: no symptoms Hematologic/Lymphatic: Reports: anemia Allergies: Coded Allergies: VANCOMYCIN (Unverified Allergy, Unknown, 08/02/19) All Systems: reviewed and negative except above Subjective no events, w/o complaints.stable s/p chest tube placement. tolerated well. alert. remains on the vent. Objective Last 24 Hour Vital Signs Date Time Temp Pulse Resp B/P (MAP) Pulse Ox O2 Delivery O2 Flow Rate FiO2 09/03/19 10:00 86 25 136/53 (80) 100 3/21/20 09:18 90 18 40 09/03/19 09:00 89 16 136/83 (100) 100 09/03/19 08:35 92 149/86 09/03/19 08:00 45 09/03/19 08:00 Mechanical Ventilator Mechanical Ventilator Mechanical Ventilator Mechanical Ventilator 09/03/19 08:00 97.3 94 15 148/112 (124) 100 09/03/19 08:00 89 09/03/19 07:40 96 09/03/19 07:00 88 23 140/76 (97) 100 09/03/19 06:45 89 18 100 Mechanical Ventilator 40 92 18 40 09/03/19 06:30 90 18 09/03/19 06:05 137/76 09/03/19 06:00 93 28 137/76 (96) 100 09/03/19 05:31 92 18 40 09/03/19 05:00 93 21 134/72 (92) 100 09/03/19 04:00 45 09/03/19 04:00 Mechanical Ventilator Mechanical Ventilator Mechanical Ventilator Mechanical Ventilator 09/03/19 04:00 97.9 92 19 128/71 (90) 100 09/03/19 04:00 93 09/03/19 03:46 88 19 100 Mechanical Ventilator 40 91 18 40 09/03/19 03:00 93 30 140/68 (92) 100 09/03/19 02:00 97 23 144/69 (94) 100 09/03/19 01:42 94 19 40 09/03/19 01:00 95 20 135/64 (87) 100 09/03/19 00:44 127/60 09/03/19 00:00 45 09/03/19 00:00 97.8 90 18 127/60 (82) 100 09/03/19 00:00 81 09/03/19 00:00 Mechanical Ventilator Mechanical Ventilator Mechanical Ventilator Mechanical Ventilator 09/02/19 23:16 78 18 100 Mechanical Ventilator 40 83 18 40 09/02/19 23:00 78 18 129/62 (84) 100 09/02/19 22:00 81 18 141/64 (89) 100 09/02/19 21:09 79 18 40 09/02/19 21:00 86 20 137/69 (91) 100 09/02/19 20:00 98.0 86 18 138/62 (87) 100 09/02/19 20:00 89 09/02/19 20:00 Mechanical Ventilator Mechanical Ventilator Mechanical Ventilator Mechanical Ventilator 09/02/19 20:00 45 09/02/19 19:20 85 18 100 Mechanical Ventilator 40 87 18 40 09/02/19 19:00 91 18 137/65 (89) 100 09/02/19 18:29 79 156/70 09/02/19 18:29 156/70 09/02/19 18:00 89 21 159/68 (98) 100 09/02/19 17:16 86 18 40 09/02/19 17:00 82 19 143/70 (94) 100 09/02/19 16:00 45 09/02/19 16:00 97.3 72 18 132/63 (86) 100 09/02/19 16:00 Mechanical Ventilator Mechanical Ventilator Mechanical Ventilator Mechanical Ventilator 09/02/19 15:20 73 18 100 Mechanical Ventilator 40 76 18 40 09/02/19 15:10 93 09/02/19 15:00 74 23 147/71 (96) 100 09/02/19 14:00 76 22 144/66 (92) 94 09/02/19 13:28 68 18 40 09/02/19 13:00 67 19 131/61 (84) 100 09/02/19 12:01 80 09/02/19 12:00 97.4 82 21 140/64 (89) 96 09/02/19 12:00 45 09/02/19 12:00 140/64 09/02/19 12:00 Mechanical Ventilator Mechanical Ventilator Mechanical Ventilator Mechanical Ventilator 09/02/19 11:26 92 18 99 Mechanical Ventilator 40 92 18 40 09/02/19 11:00 81 19 133/95 (108) 95 Intake and Output 09/02/19 09/03/19 19:00 07:00 Intake Total 488.333 ml 600 ml Output Total 2430 ml 420 ml Balance -1941.667 ml 180 ml IV Total 488.333 ml 600 ml Output Urine Total 430 ml 335 ml Chest Tube Drainage Total 2000 ml 85 ml Laboratory Tests 09/03/19 04:20: White Blood Count 6.4, Red Blood Count 3.55L, Hemoglobin 10.8L, Hematocrit 31.2L , Mean Corpuscular Volume 88, Mean Corpuscular Hemoglobin 30.3, Mean Corpuscular Hemoglobin Concent 34.5, Red Cell Distribution Width 14.7, Platelet Count 289, Mean Platelet Volume 4.9L, Neutrophils (%) (Auto) 79.7H, Lymphocytes (%) (Auto) 15.3L, Monocytes (%) (Auto) 4.1, Eosinophils (%) (Auto) 0.7, Basophils (%) (Auto) 0.3, Sodium Level 143, Potassium Level 3.6, Chloride Level 104, Carbon Dioxide Level 27, Anion Gap 12, Blood Urea Nitrogen 45H, Creatinine 3.5H, Estimat Glomerular Filtration Rate 12.6, Glucose Level 123H, Calcium Level 9.2, Total Bilirubin 0.6, Aspartate Amino Transf (AST/SGOT) 47H, Alanine Aminotransferase (ALT/SGPT) 28, Alkaline Phosphatase 117H, Total Protein 6.8, Albumin 2.2L, Globulin 4.6, Albumin/Globulin Ratio 0.5L Height (Feet): 5 Height (Inches): 4.00 Weight (Pounds): 109 Objective General Appearance: WD/WN, awake/moaning. orally intubated Neck: supple Cardiovascular: normal rate Respiratory/Chest: rhonchi - bilaterally Abdomen: normal bowel sounds, non tender, soft, no organomegaly Edema: no edema noted Arm (L), no edema noted Arm (R), no edema noted Leg (L), no edema noted Leg (R), no edema noted Pedal (L), no edema noted Pedal (R), no edema noted Generalized Neurologic: disoriented, aphasia Nate Beltran MD Sep 03, 2019 10:59
--- NOTE | 2019-09-03 11:24 | Nephrology Progress Note ---
Assessment/Plan Problem List: (1) ESRD (end stage renal disease) on dialysis (2) Malnutrition (3) Anemia in CKD (chronic kidney disease) (4) Hypotension (5) Thrombocytopenia (6) Sepsis Assessment: klebsiella in blood Assessment -Early sepsis with shock. -Healthcare-associated pneumonia. -Severe protein-calorie malnutrition. -Thrombocytopenia. - End-stage renal disease. - History of hypertension. - Bradycardia. - HypoThyroid Plan Patient transfused 3 units of packed RBCs for low hemoglobin Been stable today Remains full code Last dialysis August 29 next dialysis as needed Due to her overall medical condition I favor DNR and comfort care Blood pressure fluctuating, will start hydralazine via NG tube for blood pressure Magnesium and potassium supplement intravenously as needed Patient underwent PEG placement August 16 patient remains intubated on ventilator Discussed with RN Aim to wean from ventilator or consider tracheostomy Permacath was removed on August 12 Dialysis 08/11 Transfusion as needed Patient had hematemesis meds IV as possible Surveillance blood cultures tomorrow Plan to put the permacath back in on Thursday if cultures are negative keep BP and BS in check Inflammatory markers per orders Subjective ROS Limited/Unobtainable: Yes Objective Objective Last 24 Hour Vital Signs Date Time Temp Pulse Resp B/P (MAP) Pulse Ox O2 Delivery O2 Flow Rate FiO2 09/03/19 11:00 87 23 137/68 (91) 100 09/03/19 10:00 86 25 136/53 (80) 100 09/03/19 09:18 90 18 40 09/03/19 09:00 89 16 136/83 (100) 100 09/03/19 08:35 92 149/86 09/03/19 08:00 45 09/03/19 08:00 Mechanical Ventilator Mechanical Ventilator Mechanical Ventilator Mechanical Ventilator 09/03/19 08:00 97.3 94 15 148/112 (124) 100 09/03/19 08:00 89 09/03/19 07:40 96 09/03/19 07:00 88 23 140/76 (97) 100 09/03/19 06:45 89 18 100 Mechanical Ventilator 40 92 18 40 09/03/19 06:30 90 18 09/03/19 06:05 137/76 09/03/19 06:00 93 28 137/76 (96) 100 09/03/19 05:31 92 18 40 09/03/19 05:00 93 21 134/72 (92) 100 09/03/19 04:00 45 09/03/19 04:00 Mechanical Ventilator Mechanical Ventilator Mechanical Ventilator Mechanical Ventilator 09/03/19 04:00 97.9 92 19 128/71 (90) 100 09/03/19 04:00 93 09/03/19 03:46 88 19 100 Mechanical Ventilator 40 91 18 40 09/03/19 03:00 93 30 140/68 (92) 100 09/03/19 02:00 97 23 144/69 (94) 100 09/03/19 01:42 94 19 40 09/03/19 01:00 95 20 135/64 (87) 100 09/03/19 00:44 127/60 09/03/19 00:00 45 09/03/19 00:00 97.8 90 18 127/60 (82) 100 09/03/19 00:00 81 09/03/19 00:00 Mechanical Ventilator Mechanical Ventilator Mechanical Ventilator Mechanical Ventilator 09/02/19 23:16 78 18 100 Mechanical Ventilator 40 83 18 40 09/02/19 23:00 78 18 129/62 (84) 100 09/02/19 22:00 81 18 141/64 (89) 100 09/02/19 21:09 79 18 40 09/02/19 21:00 86 20 137/69 (91) 100 09/02/19 20:00 98.0 86 18 138/62 (87) 100 09/02/19 20:00 89 09/02/19 20:00 Mechanical Ventilator Mechanical Ventilator Mechanical Ventilator Mechanical Ventilator 09/02/19 20:00 45 09/02/19 19:20 85 18 100 Mechanical Ventilator 40 87 18 40 09/02/19 19:00 91 18 137/65 (89) 100 09/02/19 18:29 79 156/70 09/02/19 18:29 156/70 09/02/19 18:00 89 21 159/68 (98) 100 09/02/19 17:16 86 18 40 09/02/19 17:00 82 19 143/70 (94) 100 09/02/19 16:00 45 09/02/19 16:00 97.3 72 18 132/63 (86) 100 09/02/19 16:00 Mechanical Ventilator Mechanical Ventilator Mechanical Ventilator Mechanical Ventilator 09/02/19 15:20 73 18 100 Mechanical Ventilator 40 76 18 40 09/02/19 15:10 93 09/02/19 15:00 74 23 147/71 (96) 100 09/02/19 14:00 76 22 144/66 (92) 94 09/02/19 13:28 68 18 40 09/02/19 13:00 67 19 131/61 (84) 100 09/02/19 12:01 80 09/02/19 12:00 97.4 82 21 140/64 (89) 96 09/02/19 12:00 45 09/02/19 12:00 140/64 09/02/19 12:00 Mechanical Ventilator Mechanical Ventilator Mechanical Ventilator Mechanical Ventilator 09/02/19 11:26 92 18 99 Mechanical Ventilator 40 92 18 40 Intake and Output 09/02/19 09/03/19 19:00 07:00 Intake Total 488.333 ml 600 ml Output Total 2430 ml 420 ml Balance -1941.667 ml 180 ml IV Total 488.333 ml 600 ml Output Urine Total 430 ml 335 ml Chest Tube Drainage Total 2000 ml 85 ml Current Medications Medications (Trade) Dose Ordered Sig/Javier Route PRN Reason Start Time Stop Time Status Last Admin Dose Admin Acetaminophen (Tylenol) 650 mg Q4H PRN GT Mild Pain/Temp > 100.5 09/03/19 07:00 10/03/19 06:59 09/03/19 08:36 Acetylcysteine (Mucomyst) 100 mg Q4HRT [facility] 08/31/19 19:00 11/29/19 18:59 09/03/19 06:53 Albuterol/ Ipratropium (Albuterol/ Ipratropium) 3 ml Q4HRT [facility] 08/31/19 19:00 09/05/19 18:59 09/03/19 06:53 Amlodipine Besylate (Norvasc) 5 mg BID NG 08/23/19 01:45 09/22/19 01:44 09/03/19 08:35 Atropine Sulfate (Atropine) 1 mg Q4H PRN IVP Per rx protocol 08/13/19 08:30 09/12/19 08:29 Chlorhexidine Gluconate (Nae-Hex 2%) 1 applic DAILY@2000 TOPIC 08/15/19 20:00 09/14/19 19:59 09/02/19 21:10 Dextrose (Dextrose 50%) 25 ml Q30M PRN IV Hypoglycemia 09/02/19 06:15 12/01/19 06:14 Dextrose (Dextrose 50%) 50 ml Q30M PRN IV Hypoglycemia 09/02/19 06:15 12/01/19 06:14 Dextrose/Sodium Chloride 1,000 ml @ 50 mls/hr Q20H IV 09/02/19 09:00 10/02/19 08:59 09/03/19 00:44 Diphenhydramine HCl (Benadryl) 50 mg Q4H PRN IVP Itching 08/09/19 14:30 09/08/19 14:29 09/03/19 03:49 Epoetin Thomas (Epoetin Thomas(ESRD on dialysis)) 4,000 unit SUBQ 08/12/19 21:00 09/11/19 20:59 09/02/19 21:10 Hydralazine HCl (Apresoline) 10 mg Q4H PRN IV For High Blood Pressure 08/18/19 12:44 09/17/19 12:43 09/01/19 20:27 Hydralazine HCl (Apresoline) 25 mg Q6HR NG 08/23/19 06:00 09/22/19 05:59 09/03/19 06:05 Hydromorphone HCl (Dilaudid) 0.5 mg Q4H PRN IVP Pain Scale (6-10) 09/03/19 07:00 09/10/19 06:59 Lansoprazole (Prevacid) 30 mg BID GT 08/19/19 09:00 09/18/19 08:59 09/03/19 08:35 Levothyroxine Sodium (Synthroid) 50 mcg DAILY@0630 ORAL 08/25/19 06:30 09/24/19 06:29 09/03/19 06:05 Metoclopramide HCl (Reglan) 5 mg Q8H PRN IVP Nausea & Vomiting 08/09/19 12:39 09/08/19 12:38 Laboratory Tests 09/03/19 04:20: White Blood Count 6.4, Red Blood Count 3.55L, Hemoglobin 10.8L, Hematocrit 31.2L , Mean Corpuscular Volume 88, Mean Corpuscular Hemoglobin 30.3, Mean Corpuscular Hemoglobin Concent 34.5, Red Cell Distribution Width 14.7, Platelet Count 289, Mean Platelet Volume 4.9L, Neutrophils (%) (Auto) 79.7H, Lymphocytes (%) (Auto) 15.3L, Monocytes (%) (Auto) 4.1, Eosinophils (%) (Auto) 0.7, Basophils (%) (Auto) 0.3, Sodium Level 143, Potassium Level 3.6, Chloride Level 104, Carbon Dioxide Level 27, Anion Gap 12, Blood Urea Nitrogen 45H, Creatinine 3.5H, Estimat Glomerular Filtration Rate 12.6, Glucose Level 123H, Calcium Level 9.2, Total Bilirubin 0.6, Aspartate Amino Transf (AST/SGOT) 47H, Alanine Aminotransferase (ALT/SGPT) 28, Alkaline Phosphatase 117H, Total Protein 6.8, Albumin 2.2L, Globulin 4.6, Albumin/Globulin Ratio 0.5L Height (Feet): 5 Height (Inches): 4.00 Weight (Pounds): 109 General Appearance: no apparent distress EENT: other - Remains intubated and vented Cardiovascular: tachycardia Respiratory/Chest: decreased breath sounds Abdomen: distended Objective no change William Blackwood MD Sep 03, 2019 11:23
--- NOTE | 2019-09-03 14:06 | Pulmonolgy Critical Care Note ---
Critical Care - Asmt/Plan Assessment/Plan: Pulmonary CCM Progress Note Assessment/Plan respiratory failure hemoptysis resolved Ledt hemothorax sp chest tube hypoxemia chronic renal failure toxic met encephalopathy severe protein calorie malnutrition cachexia left lung whiteout/collapse, improved with intubation previously - persistent s/p intubation anemia pulmonary edema with elevated BNP PLAN sp CT insertion CPT HHN Mucomyst care noted and reviewed discussed with staff and primary failed weaning past few days- 3rd spacing noted d/w family as to trach vs terminal care; per Dr. Beltran keep negative and monitor osmotic pressures ID and other specialist reviewed close follow up discussed elevated head and monitor ROM watch fluid status nutrition as able isolation as needed off load as able and monitor skin exam ROM as able critical at present requires ICU management and close follow up care feeds as able and monitor residuals medications/laboratory data/nursing notes/ICU care reviewed in detail note reviewed and edited care discussed with RN and RT ICU time spent >40 minutes coordinating care Critical Care - Subjective Interval Events: care noted ICU care reviewed meds noted ROS Limited/Unobtainable: Yes Condition: critical EKG Rhythm: Sinus Rhythm Residuals: minimal Tube Feeding Tolerated: yes Critical Care - Objective CXR: reviewed changes ET-Tube: 7.0 ET Position: 21 Vital signs noted Labs Test 08/28/19 05:10 08/29/19 03:30 08/29/19 03:50 08/29/19 08:15 White Blood Count 4.4 K/UL (4.8-10.8) 6.8 K/UL (4.8-10.8) Red Blood Count 3.44 M/UL (4.20-5.40) 3.14 M/UL (4.20-5.40) Hemoglobin 10.4 G/DL (12.0-16.0) 9.5 G/DL (12.0-16.0) Hematocrit 31.3 % (37.0-47.0) 28.2 % (37.0-47.0) Mean Corpuscular Volume 91 FL (80-99) 90 FL (80-99) Mean Corpuscular Hemoglobin 30.1 PG (27.0-31.0) 30.2 PG (27.0-31.0) Mean Corpuscular Hemoglobin Concent 33.1 G/DL (32.0-36.0) 33.6 G/DL (32.0-36.0) Red Cell Distribution Width 16.3 % (11.6-14.8) 16.4 % (11.6-14.8) Platelet Count 530 K/UL (150-450) 591 K/UL (150-450) Mean Platelet Volume 5.7 FL (6.5-10.1) 6.0 FL (6.5-10.1) Neutrophils (%) (Auto) 48.5 % (45.0-75.0) 55.9 % (45.0-75.0) Lymphocytes (%) (Auto) 40.5 % (20.0-45.0) 34.5 % (20.0-45.0) Monocytes (%) (Auto) 7.9 % (1.0-10.0) 6.8 % (1.0-10.0) Eosinophils (%) (Auto) 1.6 % (0.0-3.0) 1.3 % (0.0-3.0) Basophils (%) (Auto) 1.6 % (0.0-2.0) 1.5 % (0.0-2.0) Sodium Level 141 MMOL/L (136-145) 139 MMOL/L (136-145) Potassium Level 3.2 MMOL/L (3.5-5.1) 3.7 MMOL/L (3.5-5.1) Chloride Level 103 MMOL/L (98-107) 102 MMOL/L (98-107) Carbon Dioxide Level 30 MMOL/L (21-32) 25 MMOL/L (21-32) Anion Gap 8 mmol/L (5-15) 12 mmol/L (5-15) Blood Urea Nitrogen 36 mg/dL (7-18) 35 mg/dL (7-18) Creatinine 2.9 MG/DL (0.55-1.30) 3.2 MG/DL (0.55-1.30) Estimat Glomerular Filtration Rate 15.7 mL/min (>60) 13.9 mL/min (>60) Glucose Level 76 MG/DL (74-106) 144 MG/DL (74-106) Calcium Level 8.9 MG/DL (8.5-10.1) 8.4 MG/DL (8.5-10.1) Phosphorus Level 3.5 MG/DL (2.5-4.9) 3.3 MG/DL (2.5-4.9) Magnesium Level 2.3 MG/DL (1.8-2.4) 2.3 MG/DL (1.8-2.4) Total Bilirubin 0.5 MG/DL (0.2-1.0) 0.3 MG/DL (0.2-1.0) Aspartate Amino Transf (AST/SGOT) 28 U/L (15-37) 24 U/L (15-37) Alanine Aminotransferase (ALT/SGPT) < 6 U/L (12-78) 15 U/L (12-78) Alkaline Phosphatase 113 U/L (46-116) 167 U/L (46-116) C-Reactive Protein, Quantitative 6.3 mg/dL (0.00-0.90) 5.4 mg/dL (0.00-0.90) Pro-B-Type Natriuretic Peptide > 32053 pg/mL (0-125) > 90761 pg/mL (0-125) Total Protein 6.2 G/DL (6.4-8.2) 5.9 G/DL (6.4-8.2) Albumin 1.9 G/DL (3.4-5.0) 1.7 G/DL (3.4-5.0) Globulin 4.3 g/dL 4.2 g/dL Albumin/Globulin Ratio 0.4 (1.0-2.7) 0.4 (1.0-2.7) Thyroid Stimulating Hormone (TSH) 8.357 uiU/mL (0.358-3.740) Free Thyroxine 1.23 NG/DL (0.76-1.46) Prothrombin Time 10.7 SEC (9.30-11.50) Prothromb Time International Ratio 1.0 (0.9-1.1) Activated Partial Thromboplast Time 29 SEC (23-33) Test 08/30/19 16:41 Arterial Blood pH 7.553 (7.350-7.450) Arterial Blood Partial Pressure CO2 35.7 mmHg (35.0-45.0) Arterial Blood Partial Pressure O2 111.7 mmHg (75.0-100.0) Arterial Blood HCO3 30.7 mmol/L (22.0-26.0) Arterial Blood Oxygen Saturation 97.5 % (95-100) Arterial Blood Base Excess 7.7 (-2-2) Cuauhtemoc Test Positive Objective: WDWN NAD intubated reduced breath sounds bilaterally with some rhonchi [id number] without MRG NABS nontender no HSM no CCE contractures feeding tube in place no distention poorly responsive nonfocal cachectic reviewed and edited Critical Care - Objective Last 24 Hour Vital Signs Date Time Temp Pulse Resp B/P (MAP) Pulse Ox O2 Delivery O2 Flow Rate FiO2 09/03/19 13:16 83 18 40 09/03/19 13:00 86 22 125/96 (106) 100 09/03/19 12:06 132/118 09/03/19 12:00 45 09/03/19 12:00 76 09/03/19 12:00 Mechanical Ventilator Mechanical Ventilator Mechanical Ventilator Mechanical Ventilator 09/03/19 12:00 98.3 87 19 132/118 (123) 100 09/03/19 11:21 73 18 100 Mechanical Ventilator 40 75 18 40 09/03/19 11:00 87 23 137/68 (91) 100 09/03/19 10:00 86 25 136/53 (80) 100 09/03/19 09:18 90 18 40 09/03/19 09:00 89 16 136/83 (100) 100 09/03/19 08:35 92 149/86 09/03/19 08:00 45 09/03/19 08:00 Mechanical Ventilator Mechanical Ventilator Mechanical Ventilator Mechanical Ventilator 09/03/19 08:00 97.3 94 15 148/112 (124) 100 09/03/19 08:00 89 09/03/19 07:40 96 09/03/19 07:00 88 23 140/76 (97) 100 09/03/19 06:45 89 18 100 Mechanical Ventilator 40 92 18 40 09/03/19 06:30 90 18 09/03/19 06:05 137/76 09/03/19 06:00 93 28 137/76 (96) 100 09/03/19 05:31 92 18 40 09/03/19 05:00 93 21 134/72 (92) 100 09/03/19 04:00 45 09/03/19 04:00 Mechanical Ventilator Mechanical Ventilator Mechanical Ventilator Mechanical Ventilator 09/03/19 04:00 97.9 92 19 128/71 (90) 100 09/03/19 04:00 93 09/03/19 03:46 88 19 100 Mechanical Ventilator 40 91 18 40 09/03/19 03:00 93 30 140/68 (92) 100 09/03/19 02:00 97 23 144/69 (94) 100 09/03/19 01:42 94 19 40 09/03/19 01:00 95 20 135/64 (87) 100 09/03/19 00:44 127/60 09/03/19 00:00 45 09/03/19 00:00 97.8 90 18 127/60 (82) 100 09/03/19 00:00 81 09/03/19 00:00 Mechanical Ventilator Mechanical Ventilator Mechanical Ventilator Mechanical Ventilator 09/02/19 23:16 78 18 100 Mechanical Ventilator 40 83 18 40 09/02/19 23:00 78 18 129/62 (84) 100 09/02/19 22:00 81 18 141/64 (89) 100 09/02/19 21:09 79 18 40 09/02/19 21:00 86 20 137/69 (91) 100 09/02/19 20:00 98.0 86 18 138/62 (87) 100 09/02/19 20:00 89 09/02/19 20:00 Mechanical Ventilator Mechanical Ventilator Mechanical Ventilator Mechanical Ventilator 09/02/19 20:00 45 09/02/19 19:20 85 18 100 Mechanical Ventilator 40 87 18 40 09/02/19 19:00 91 18 137/65 (89) 100 09/02/19 18:29 79 156/70 09/02/19 18:29 156/70 09/02/19 18:00 89 21 159/68 (98) 100 09/02/19 17:16 86 18 40 09/02/19 17:00 82 19 143/70 (94) 100 09/02/19 16:00 45 09/02/19 16:00 97.3 72 18 132/63 (86) 100 09/02/19 16:00 Mechanical Ventilator Mechanical Ventilator Mechanical Ventilator Mechanical Ventilator 09/02/19 15:20 73 18 100 Mechanical Ventilator 40 76 18 40 09/02/19 15:10 93 09/02/19 15:00 74 23 147/71 (96) 100 Micro: Microbiology Date/Time Source Procedure Growth Status 09/01/19 17:30 Anus Stool Culture - Preliminary NO SALMONELLA,SHIGELLA,OR CAMPYLOBACT... Resulted Accucheck: 123 Critical Care - Subjective ROS Limited/Unobtainable: No FI02: 40 Vent Support Breath Rate: 18 Vent Support Mode: AC Sputum Amount: Small PEEP: 5.0 PIP: 20 Tube Feeding Amount: 35 I&O: Intake and Output 09/02/19 09/03/19 19:00 07:00 Intake Total 488.333 ml 600 ml Output Total 2430 ml 420 ml Balance -1941.667 ml 180 ml IV Total 488.333 ml 600 ml Output Urine Total 430 ml 335 ml Chest Tube Drainage Total 2000 ml 85 ml ET-Tube: 7.0 ET Position: 19 Abel Graham MD Sep 03, 2019 14:06
--- NOTE | 2019-09-03 20:03 | Surgery Progress Note ---
Surgery Progress Note Subjective Procedure Performed left chest tube insertion Additional Comments Doing better since chest tube insertion. 1000 cc blood evacuated since and the chest tube catheter drain Pleur-evac no air leak noted. Objective Last 24 Hour Vital Signs Date Time Temp Pulse Resp B/P (MAP) Pulse Ox O2 Delivery O2 Flow Rate FiO2 09/03/19 19:24 81 18 100 Mechanical Ventilator 40 09/03/19 19:08 82 18 Mechanical Ventilator 40 40 09/03/19 18:08 80 140/67 09/03/19 18:08 140/67 09/03/19 18:00 84 23 140/67 (91) 100 09/03/19 17:28 82 18 40 09/03/19 17:00 81 22 136/66 (89) 100 09/03/19 16:00 Mechanical Ventilator Mechanical Ventilator Mechanical Ventilator Mechanical Ventilator 09/03/19 16:00 97.4 86 24 123/94 (104) 100 09/03/19 16:00 45 09/03/19 16:00 88 09/03/19 15:00 83 20 140/66 (90) 100 09/03/19 14:57 77 18 100 Mechanical Ventilator 40 78 18 40 09/03/19 14:00 82 21 128/61 (83) 100 09/03/19 13:16 83 18 40 09/03/19 13:00 86 22 125/96 (106) 100 09/03/19 12:06 132/118 09/03/19 12:00 45 09/03/19 12:00 76 09/03/19 12:00 Mechanical Ventilator Mechanical Ventilator Mechanical Ventilator Mechanical Ventilator 09/03/19 12:00 98.3 87 19 132/118 (123) 100 09/03/19 11:21 73 18 100 Mechanical Ventilator 40 75 18 40 09/03/19 11:00 87 23 137/68 (91) 100 09/03/19 10:00 86 25 136/53 (80) 100 09/03/19 09:18 90 18 40 09/03/19 09:00 89 16 136/83 (100) 100 09/03/19 08:35 92 149/86 09/03/19 08:00 45 09/03/19 08:00 Mechanical Ventilator Mechanical Ventilator Mechanical Ventilator Mechanical Ventilator 09/03/19 08:00 97.3 94 15 148/112 (124) 100 3/21/20 08:00 89 09/03/19 07:40 96 09/03/19 07:00 88 23 140/76 (97) 100 09/03/19 06:45 89 18 100 Mechanical Ventilator 40 92 18 40 09/03/19 06:30 90 18 09/03/19 06:05 137/76 09/03/19 06:00 93 28 137/76 (96) 100 09/03/19 05:31 92 18 40 09/03/19 05:00 93 21 134/72 (92) 100 09/03/19 04:00 45 09/03/19 04:00 Mechanical Ventilator Mechanical Ventilator Mechanical Ventilator Mechanical Ventilator 09/03/19 04:00 97.9 92 19 128/71 (90) 100 09/03/19 04:00 93 09/03/19 03:46 88 19 100 Mechanical Ventilator 40 91 18 40 09/03/19 03:00 93 30 140/68 (92) 100 09/03/19 02:00 97 23 144/69 (94) 100 09/03/19 01:42 94 19 40 09/03/19 01:00 95 20 135/64 (87) 100 09/03/19 00:44 127/60 09/03/19 00:00 45 09/03/19 00:00 97.8 90 18 127/60 (82) 100 09/03/19 00:00 81 09/03/19 00:00 Mechanical Ventilator Mechanical Ventilator Mechanical Ventilator Mechanical Ventilator 09/02/19 23:16 78 18 100 Mechanical Ventilator 40 83 18 40 09/02/19 23:00 78 18 129/62 (84) 100 09/02/19 22:00 81 18 141/64 (89) 100 09/02/19 21:09 79 18 40 09/02/19 21:00 86 20 137/69 (91) 100 I&O Intake and Output 09/02/19 09/03/19 19:00 07:00 Intake Total 488.333 ml 600 ml Output Total 2430 ml 420 ml Balance -1941.667 ml 180 ml IV Total 488.333 ml 600 ml Output Urine Total 430 ml 335 ml Chest Tube Drainage Total 2000 ml 85 ml Dressing: saturated Wound: other Drains: other Cardiovascular: RSR Respiratory: decreased breath sounds Abdomen: soft, non-tender, present bowel sounds Extremities: no tenderness, no cyanosis Laboratory Tests Test 09/03/19 04:20 White Blood Count 6.4 K/UL (4.8-10.8) Red Blood Count 3.55 M/UL (4.20-5.40) L Hemoglobin 10.8 G/DL (12.0-16.0) L Hematocrit 31.2 % (37.0-47.0) L Mean Corpuscular Volume 88 FL (80-99) Mean Corpuscular Hemoglobin 30.3 PG (27.0-31.0) Mean Corpuscular Hemoglobin Concent 34.5 G/DL (32.0-36.0) Red Cell Distribution Width 14.7 % (11.6-14.8) Platelet Count 289 K/UL (150-450) Mean Platelet Volume 4.9 FL (6.5-10.1) L Neutrophils (%) (Auto) 79.7 % (45.0-75.0) H Lymphocytes (%) (Auto) 15.3 % (20.0-45.0) L Monocytes (%) (Auto) 4.1 % (1.0-10.0) Eosinophils (%) (Auto) 0.7 % (0.0-3.0) Basophils (%) (Auto) 0.3 % (0.0-2.0) Sodium Level 143 MMOL/L (136-145) Potassium Level 3.6 MMOL/L (3.5-5.1) Chloride Level 104 MMOL/L (98-107) Carbon Dioxide Level 27 MMOL/L (21-32) Anion Gap 12 mmol/L (5-15) Blood Urea Nitrogen 45 mg/dL (7-18) H Creatinine 3.5 MG/DL (0.55-1.30) H Estimat Glomerular Filtration Rate 12.6 mL/min (>60) Glucose Level 123 MG/DL (74-106) H Calcium Level 9.2 MG/DL (8.5-10.1) Total Bilirubin 0.6 MG/DL (0.2-1.0) Aspartate Amino Transf (AST/SGOT) 47 U/L (15-37) H Alanine Aminotransferase (ALT/SGPT) 28 U/L (12-78) Alkaline Phosphatase 117 U/L (46-116) H Total Protein 6.8 G/DL (6.4-8.2) Albumin 2.2 G/DL (3.4-5.0) L Globulin 4.6 g/dL Albumin/Globulin Ratio 0.5 (1.0-2.7) L Assessment Post-op Diagnosis same Plan Problems: (1) Malnutrition Assessment & Plan: DAILY ESTIMATED NEEDS: Needs based on ESRD+ HD, underweight, wound/ 39.5kg 35-40 kcals/kg 0061-8596 total kcals 1.25-1.8 g protein/kg 49-71 g total protein 20-22 mL/kg 790-869 total fluid mLs NUTRITION DIAGNOSIS: * Increased kcal and protein needs r/t underweight status, HD needs, wuond healing as evidenced by pt is underweight per guidelines, ESRD, on HD, admitted non-blanching erythema wounds @ BL heels and sacrum * Swallowing difficulty R/T dysphagia as evidenced by TELETYPE INSTALLER recommends temporary nonoral feeding at this time, s/p NGT insertion, on NGT feeding-> now s/p self removal, NPO. CURRENT TF:NPO PO DIET RECOMMENDATIONS: WHEN SAFE FOR ORAL DIET -> renal/ texture per TELETYPE INSTALLER ENTERAL NUTRITION RECOMMENDATIONS: W/ GI access: Nepro @ 35ml/hr x 22 hrs to provide 770ml, 1386kcal, 62g prot, 560ml free water * W/ GI access, resume TF on Nepro * Initiate Nepro @ 15ml/hr x 6 hrs, advance 10ml q 4-6 hrs as tolerated to goal rate. * Hold 1 hour before and after Synthroid med * HOB over 30 degrees/ water flush per MD. ADDITIONAL RECOMMENDATIONS: 1) Calibrated bed scale wt for accurate CBW -> daily wt monitoring Per HD record: dry wt on 07/30=39.5kg (87lbs) 2) Wound care: (W/ GI access) add Nephorivte x 1 + Balta BID 3) Monitor NPO status: without GI access at this time, s/p pulling out NGT 4) Monitor for hypoglycemia while NPO 5) Monitor for continuity of HD (2) Septic arthritis Assessment & Plan: Pt presented on admission with generalized scaly rash . pt noted to be restless and scratching at skin. Bleeding from oral mucosa noted. Joint deformity noted to R shoulder. Surgical incision approximated with 11 sutures. Erythema but no exudate,or elevation in skin temp at site of incision. Historical incision R hip that is tunneled.Small amt seropurulent exudate noted. Periwound is erythematous,but no elevation in skin temp noted. No odor noted. Non-blanching erythema noted to sacrum. Perianal area is erythematous and excoriated. L heel is boggy with non-blanching erythema. R heel is soft with non-blanching erythema. No evidence of skin breakdown to all other bony prominences. Tx.plan: Cover R shoulder with Drsg and change daily and prn. Cleanse R hip wound with Saline. Apply Therahoney.Apply Cavilon Skin Barrier periwound. Cover with Optifoam drsg. Change every 3 days and prn. Apply Moisture Barrier Paste to perianal area and buttocks. Cover Sacrum with Optifoam drsg. Change every 3 days and prn. Apply Cavilon Skin Barrier to both heels. Cover each heel with Optifoam drsg. Change every 7 days and prn. APM/ELVIA Mattress overlay. Reposition at least every 2hours or as tolerated. Off-load heels with pillow. HD cath necessary HD as renal likely will need intubation (3) Wound, open, hip or thigh with complication Assessment & Plan: slow healing will need nutritional optimization difficult ng tube peg when stable sutures removed from right shoulder comfortable wean vent may need trach (4) Abscess of right hip (5) possible septic arthritis (6) Renal failure (ARF), acute on chronic Assessment & Plan: cont HD will need tunneled cath placement okay to use fem line for now but will need change soon. line monitored and clean dressings going well (7) Pneumonia Assessment & Plan: intubated on vent support not tolerating weaning may need trach hemothorax likely after thoracentesis Chest CT noted Left chest tube placed With plan for trach chest tube can be considered but overall prognosis is very poor Camilo James Sep 03, 2019 20:03
--- NOTE | 2019-09-03 20:15 | Progress Note ---
DATE: 09/03/2019 CARDIOLOGY PROGRESS NOTE SUBJECTIVE: The patient has had a chest tube placed yesterday for hemothorax on the left side. She remains on ventilator support. She is alert and interactive. Monitored rhythm sinus and sinus bradycardia with no pauses and rare atrial ectopy. PHYSICAL EXAMINATION: VITAL SIGNS: Blood pressure 136/53, pulse 86, respiratory rate 25. Afebrile. LUNGS: Rhonchi at the right greater than left. HEART: Regular rhythm and rate. Normal S1, S2. ABDOMEN: Soft. EXTREMITIES: No edema. LABORATORY DATA: White count 6.4, hemoglobin 10.8. Potassium 3.6, BUN 45, creatinine 3.5. Albumin 2.2. IMPRESSION: 1. Respiratory failure. 2. End-stage renal disease. 3. Pneumothorax status post chest tube. 4. Sinus bradycardia recovered. 5. Hypothyroidism corrected. 6. Hypertensive heart disease now with adequate control. 7. Chronic diastolic congestive heart failure. PLAN: 1. Chest tube management. 2. Hemodialysis with ultrafiltration for volume management. 3. Weaning efforts as able. 4. May need trach. 5. Titrate antihypertensives. 6. Maintenance thyroid replacement. 7. We will follow. 8. Remains critical and guarded. Abel Stubbs M.D. [facility] FERNANDEZ JOB#: [id number] CC:
[2019-09-03] MEDS: Dyna-Hex 2% Top Sol 2oz TOPIC SCH (20:25)
[2019-09-04] VITALS (24 sets, daily range): BP systolic 113–146; BP diastolic 53–103
[2019-09-04] MEDS: HydrALAZINE 25mg tab NG SCH ×5 (00:03→23:37)
[2019-09-04] MEDS: DiphenhydrAMINE 50mg/ml Inj IVP PRN (02:20)
[2019-09-04] MEDS: Hydromorphone 0.5mg/0.5ml inj IVP PRN (02:56)
[2019-09-04] MEDS: Albuterol/Ipratropium 3ml neb HHN SCH ×6 (03:02→23:05)
[2019-09-04 06:10] LABS: BASOPHILS % (AUTO) 0.4 % (0.0-2.0); EOSINOPHILS % (AUTO) 2.9 % (0.0-3.0); HEMATOCRIT 29.5 % (37.0-47.0); HEMOGLOBIN 9.9 G/DL (12.0-16.0); LYMPHOCYTES % (AUTO) 25.1 % (20.0-45.0); MEAN CORPUSCULAR VOLUME 88 FL (80-99); MONOCYTES % (AUTO) 6.3 % (1.0-10.0); NEUTROPHILS % (AUTO) 65.4 % (45.0-75.0); PLATELET COUNT 284 K/UL (150-450); RED BLOOD COUNT 3.36 M/UL (4.20-5.40); RED CELL DISTRIBUTION WIDTH 14.4 % (11.6-14.8); WHITE BLOOD COUNT 5.9 K/UL (4.8-10.8)
[2019-09-04 06:32] LABS: ALANINE AMINOTRANSFERASE 18 U/L (12-78); ALBUMIN 1.9 G/DL (3.4-5.0); ALBUMIN/GLOBULIN RATIO 0.5 (1.0-2.7); ALKALINE PHOSPHATASE 105 U/L (46-116); ANION GAP 11 mmol/L (5-15); ASPARTATE AMINO TRANSFERASE 32 U/L (15-37); BILIRUBIN,TOTAL 0.5 MG/DL (0.2-1.0); BLOOD UREA NITROGEN 48 mg/dL (7-18); CALCIUM 9.3 MG/DL (8.5-10.1); CARBON DIOXIDE 26 MMOL/L (21-32); CHLORIDE 102 MMOL/L (98-107); CREATININE 3.7 MG/DL (0.55-1.30); PHOSPHORUS 4.5 MG/DL (2.5-4.9); POTASSIUM 3.7 MMOL/L (3.5-5.1); SODIUM 139 MMOL/L (136-145)
--- NOTE | 2019-09-04 08:29 | General Progress Note ---
Assessment/Plan Status: stable, not improved, unchanged, deteriorating Assessment/Plan: Assessment/Plan Status: stable, not improved, unchanged, deteriorating Assessment/Plan: Assessment - Severe ulcerative esophagitis on endoscopy - on BID PPI - Resp failure - thrombocytopenia --> resolved - Renal failure - aspiration risk --> s/p PEG - anemia - bradycardia - Poor prognosis Recommendations - TF - s/p blood transfusion -fu H&H and transfuse prn - elevate HOB - monitor H&H -s/p Chest tube placement - poor prognosis Subjective ROS Limited/Unobtainable: No Allergies: Coded Allergies: VANCOMYCIN (Unverified Allergy, Unknown, 08/02/19) Subjective s/p blood transfusion Objective Last 24 Hour Vital Signs Date Time Temp Pulse Resp B/P (MAP) Pulse Ox O2 Delivery O2 Flow Rate FiO2 09/04/19 08:00 98.2 70 18 118/56 (76) 100 09/04/19 07:21 81 18 100 Mechanical Ventilator 40 71 18 40 09/04/19 07:00 73 18 135/63 (87) 100 09/04/19 06:30 79 18 09/04/19 06:00 69 18 118/53 (74) 100 09/04/19 05:39 117/56 09/04/19 05:12 72 18 40 09/04/19 05:00 74 18 117/56 (76) 100 09/04/19 04:00 69 09/04/19 04:00 Mechanical Ventilator Mechanical Ventilator Mechanical Ventilator Mechanical Ventilator 09/04/19 04:00 98.3 73 18 124/103 (110) 100 09/04/19 04:00 40 09/04/19 03:17 74 18 100 Mechanical Ventilator 40 09/04/19 03:02 77 18 Mechanical Ventilator 40 40 09/04/19 03:00 77 18 113/56 (75) 100 09/04/19 02:00 79 19 137/67 (90) 100 09/04/19 02:00 79 09/04/19 01:16 84 18 40 09/04/19 01:00 77 21 129/56 (80) 100 09/04/19 00:03 129/59 09/04/19 00:00 45 09/04/19 00:00 82 09/04/19 00:00 Mechanical Ventilator Mechanical Ventilator Mechanical Ventilator Mechanical Ventilator 09/04/19 00:00 98.4 87 22 131/63 (85) 100 09/03/19 23:26 77 18 100 Mechanical Ventilator 40 09/03/19 23:11 79 18 Mechanical Ventilator 40 40 09/03/19 23:00 81 23 129/59 (82) 100 09/03/19 22:00 83 23 129/59 (82) 100 09/03/19 21:16 77 18 40 09/03/19 21:00 83 23 133/61 (85) 100 09/03/19 20:00 Mechanical Ventilator Mechanical Ventilator Mechanical Ventilator Mechanical Ventilator 09/03/19 20:00 85 09/03/19 20:00 45 09/03/19 20:00 86 23 112/74 (87) 100 09/03/19 19:24 81 18 100 Mechanical Ventilator 40 09/03/19 19:08 82 18 Mechanical Ventilator 40 40 09/03/19 19:00 98.1 84 21 131/99 (110) 100 09/03/19 18:08 80 140/67 09/03/19 18:08 140/67 09/03/19 18:00 84 23 140/67 (91) 100 09/03/19 17:28 82 18 40 09/03/19 17:00 81 22 136/66 (89) 100 09/03/19 16:00 Mechanical Ventilator Mechanical Ventilator Mechanical Ventilator Mechanical Ventilator 09/03/19 16:00 97.4 86 24 123/94 (104) 100 09/03/19 16:00 45 09/03/19 16:00 88 09/03/19 15:00 83 20 140/66 (90) 100 09/03/19 14:57 77 18 100 Mechanical Ventilator 40 78 18 40 09/03/19 14:00 82 21 128/61 (83) 100 09/03/19 13:16 83 18 40 09/03/19 13:00 86 22 125/96 (106) 100 09/03/19 12:06 132/118 09/03/19 12:00 45 09/03/19 12:00 76 09/03/19 12:00 Mechanical Ventilator Mechanical Ventilator Mechanical Ventilator Mechanical Ventilator 09/03/19 12:00 98.3 87 19 132/118 (123) 100 09/03/19 11:21 73 18 100 Mechanical Ventilator 40 75 18 40 09/03/19 11:00 87 23 137/68 (91) 100 09/03/19 10:00 86 25 136/53 (80) 100 09/03/19 09:18 90 18 40 09/03/19 09:00 89 16 136/83 (100) 100 09/03/19 08:35 92 149/86 Intake and Output 09/03/19 09/04/19 19:00 07:00 Intake Total 170 ml Output Total 195 ml 230 ml Balance -25 ml -230 ml IV Total 170 ml Output Urine Total 195 ml 210 ml Chest Tube Drainage Total 20 ml # Bowel Movements 4 Laboratory Tests 09/04/19 05:30: White Blood Count 5.9, Red Blood Count 3.36L, Hemoglobin 9.9L, Hematocrit 29.5L , Mean Corpuscular Volume 88, Mean Corpuscular Hemoglobin 29.6, Mean Corpuscular Hemoglobin Concent 33.7, Red Cell Distribution Width 14.4, Platelet Count 284, Mean Platelet Volume 4.8L, Neutrophils (%) (Auto) 65.4, Lymphocytes ( %) (Auto) 25.1, Monocytes (%) (Auto) 6.3, Eosinophils (%) (Auto) 2.9, Basophils (%) (Auto) 0.4, Sodium Level 139, Potassium Level 3.7, Chloride Level 102, Carbon Dioxide Level 26, Anion Gap 11, Blood Urea Nitrogen 48H, Creatinine 3.7H , Estimat Glomerular Filtration Rate 11.8, Glucose Level 65L, Uric Acid 6.9, Calcium Level 9.3, Phosphorus Level 4.5, Magnesium Level 2.5H, Total Bilirubin 0.5, Aspartate Amino Transf (AST/SGOT) 32, Alanine Aminotransferase (ALT/SGPT) 18, Alkaline Phosphatase 105, C-Reactive Protein, Quantitative 18.2H, Pro-B- Type Natriuretic Peptide > 97606L, Total Protein 6.1L, Albumin 1.9L, Globulin 4.2, Albumin/Globulin Ratio 0.5L Height (Feet): 5 Height (Inches): 4.00 Weight (Pounds): 109 General Appearance: lethargic EENT: normal ENT inspection Neck: supple Cardiovascular: tachycardia Respiratory/Chest: decreased breath sounds Abdomen: normal bowel sounds, non tender, soft Extremities: non-tender Kenny Rudolph MD Sep 04, 2019 08:29
--- NOTE | 2019-09-04 10:17 | General Progress Note ---
Assessment/Plan Problem List: (1) Failure to thrive (0-17) ICD Codes: R62.51 - Failure to thrive (0-17) SNOMED: 689405811 (2) Hypertensive kidney disease ICD Codes: I12.9 - Hypertensive chronic kidney disease with stage 1 through stage 4 chronic kidney disease, or unspecified chronic kidney disease SNOMED: 76369049 (3) Pneumonia ICD Codes: J18.9 - Pneumonia, unspecified organism SNOMED: 522341740 Qualifiers: Qualified Codes: J18.9 - Pneumonia, unspecified organism (4) ESRD (end stage renal disease) ICD Codes: N18.6 - End stage renal disease SNOMED: 72027912 (5) Septic arthritis ICD Codes: M00.9 - Pyogenic arthritis, unspecified SNOMED: 384298395 (6) Thrombocytopenia ICD Codes: D69.6 - Thrombocytopenia, unspecified SNOMED: 569191791 (7) Hypotension ICD Codes: I95.9 - Hypotension, unspecified SNOMED: 90531537 Qualifiers: Qualified Codes: I95.3 - Hypotension of hemodialysis (8) Malnutrition ICD Codes: E46 - Unspecified protein-calorie malnutrition SNOMED: 86878149 Status: stable, not improved, unchanged, deteriorating Assessment/Plan: cont resp care chest pt/suctioning resp rx monitor cbc transfuse as needed cont weaning- try simv monitor plts iv PPI iv abx HD bp rx d/w pt with [employer] [facility] [employer] [facility]. d/w son franca Subjective ROS Limited/Unobtainable: Yes Constitutional: Reports: malaise, weakness HEENT: Reports: no symptoms Cardiovascular: Reports: no symptoms Respiratory: Reports: sputum Gastrointestinal/Abdominal: Reports: difficulty swallowing Genitourinary: Reports: no symptoms Neurologic/Psychiatric: Reports: anxiety Endocrine: Reports: no symptoms Hematologic/Lymphatic: Reports: anemia Allergies: Coded Allergies: VANCOMYCIN (Unverified Allergy, Unknown, 08/02/19) All Systems: reviewed and negative except above Subjective no events, w/o complaints.stable s/p chest tube placement. tolerated well. alert. remains on the vent. 25cc bloody output. some serosanguinous drainage from ct site Objective Last 24 Hour Vital Signs Date Time Temp Pulse Resp B/P (MAP) Pulse Ox O2 Delivery O2 Flow Rate FiO2 09/04/19 09:02 71 127/59 09/04/19 08:55 69 18 40 09/04/19 08:00 98.2 70 18 118/56 (76) 100 09/04/19 07:21 81 18 100 Mechanical Ventilator 40 71 18 40 09/04/19 07:00 73 18 135/63 (87) 100 09/04/19 06:30 79 18 09/04/19 06:00 69 18 118/53 (74) 100 09/04/19 05:39 117/56 09/04/19 05:12 72 18 40 09/04/19 05:00 74 18 117/56 (76) 100 09/04/19 04:00 69 09/04/19 04:00 Mechanical Ventilator Mechanical Ventilator Mechanical Ventilator Mechanical Ventilator 09/04/19 04:00 98.3 73 18 124/103 (110) 100 09/04/19 04:00 40 09/04/19 03:17 74 18 100 Mechanical Ventilator 40 09/04/19 03:02 77 18 Mechanical Ventilator 40 40 09/04/19 03:00 77 18 113/56 (75) 100 09/04/19 02:00 79 19 137/67 (90) 100 09/04/19 02:00 79 09/04/19 01:16 84 18 40 09/04/19 01:00 77 21 129/56 (80) 100 09/04/19 00:03 129/59 09/04/19 00:00 45 09/04/19 00:00 82 09/04/19 00:00 Mechanical Ventilator Mechanical Ventilator Mechanical Ventilator Mechanical Ventilator 09/04/19 00:00 98.4 87 22 131/63 (85) 100 09/03/19 23:26 77 18 100 Mechanical Ventilator 40 09/03/19 23:11 79 18 Mechanical Ventilator 40 40 09/03/19 23:00 81 23 129/59 (82) 100 09/03/19 22:00 83 23 129/59 (82) 100 09/03/19 21:16 77 18 40 09/03/19 21:00 83 23 133/61 (85) 100 09/03/19 20:00 Mechanical Ventilator Mechanical Ventilator Mechanical Ventilator Mechanical Ventilator 09/03/19 20:00 85 09/03/19 20:00 45 09/03/19 20:00 86 23 112/74 (87) 100 09/03/19 19:24 81 18 100 Mechanical Ventilator 40 09/03/19 19:08 82 18 Mechanical Ventilator 40 40 09/03/19 19:00 98.1 84 21 131/99 (110) 100 09/03/19 18:08 80 140/67 09/03/19 18:08 140/67 09/03/19 18:00 84 23 140/67 (91) 100 09/03/19 17:28 82 18 40 09/03/19 17:00 81 22 136/66 (89) 100 09/03/19 16:00 Mechanical Ventilator Mechanical Ventilator Mechanical Ventilator Mechanical Ventilator 09/03/19 16:00 97.4 86 24 123/94 (104) 100 09/03/19 16:00 45 09/03/19 16:00 88 09/03/19 15:00 83 20 140/66 (90) 100 09/03/19 14:57 77 18 100 Mechanical Ventilator 40 78 18 40 09/03/19 14:00 82 21 128/61 (83) 100 09/03/19 13:16 83 18 40 09/03/19 13:00 86 22 125/96 (106) 100 09/03/19 12:06 132/118 09/03/19 12:00 45 09/03/19 12:00 76 09/03/19 12:00 Mechanical Ventilator Mechanical Ventilator Mechanical Ventilator Mechanical Ventilator 09/03/19 12:00 98.3 87 19 132/118 (123) 100 09/03/19 11:21 73 18 100 Mechanical Ventilator 40 75 18 40 09/03/19 11:00 87 23 137/68 (91) 100 Intake and Output 09/03/19 09/04/19 19:00 07:00 Intake Total 170 ml Output Total 195 ml 230 ml Balance -25 ml -230 ml IV Total 170 ml Output Urine Total 195 ml 210 ml Chest Tube Drainage Total 20 ml # Bowel Movements 4 Laboratory Tests 09/04/19 05:30: White Blood Count 5.9, Red Blood Count 3.36L, Hemoglobin 9.9L, Hematocrit 29.5L , Mean Corpuscular Volume 88, Mean Corpuscular Hemoglobin 29.6, Mean Corpuscular Hemoglobin Concent 33.7, Red Cell Distribution Width 14.4, Platelet Count 284, Mean Platelet Volume 4.8L, Neutrophils (%) (Auto) 65.4, Lymphocytes ( %) (Auto) 25.1, Monocytes (%) (Auto) 6.3, Eosinophils (%) (Auto) 2.9, Basophils (%) (Auto) 0.4, Sodium Level 139, Potassium Level 3.7, Chloride Level 102, Carbon Dioxide Level 26, Anion Gap 11, Blood Urea Nitrogen 48H, Creatinine 3.7H , Estimat Glomerular Filtration Rate 11.8, Glucose Level 65L, Uric Acid 6.9, Calcium Level 9.3, Phosphorus Level 4.5, Magnesium Level 2.5H, Total Bilirubin 0.5, Aspartate Amino Transf (AST/SGOT) 32, Alanine Aminotransferase (ALT/SGPT) 18, Alkaline Phosphatase 105, C-Reactive Protein, Quantitative 18.2H, Pro-B- Type Natriuretic Peptide > 54628B, Total Protein 6.1L, Albumin 1.9L, Globulin 4.2, Albumin/Globulin Ratio 0.5L Height (Feet): 5 Height (Inches): 4.00 Weight (Pounds): 109 Objective General Appearance: WD/WN, awake/moaning. orally intubated Neck: supple Cardiovascular: normal rate Respiratory/Chest: rhonchi - bilaterally Abdomen: normal bowel sounds, non tender, soft, no organomegaly Edema: no edema noted Arm (L), no edema noted Arm (R), no edema noted Leg (L), no edema noted Leg (R), no edema noted Pedal (L), no edema noted Pedal (R), no edema noted Generalized Neurologic: disoriented, aphasia Nate Beltran MD Sep 04, 2019 10:17
--- NOTE | 2019-09-04 10:32 | Infectious Diseases Prog Note ---
Assessment/Plan Assessment/Plan A; 1. Hailee sepsis treated 2. Klebsiella sepsis , treated 3. Right shoulder septic arthritis, status post surgery. 4. Diabetes. 5. Hypertension. 6. Anemia 7. Thrombocytopenia improving 9. Atelectasis , left lung collapse 10. Pleural effusion, hemothorax 11. Ulcerative esophagitis PLAN: 1. Observe off antibiotic 3. Poor prognosis Subjective ROS Limited/Unobtainable: Yes Neurologic: Reports: confusion, other - on restraint Allergies: Coded Allergies: VANCOMYCIN (Unverified Allergy, Unknown, 08/02/19) Objective Vital Signs Last 24 Hour Vital Signs Date Time Temp Pulse Resp B/P (MAP) Pulse Ox O2 Delivery O2 Flow Rate FiO2 09/04/19 10:00 77 20 133/67 (89) 100 09/04/19 09:02 71 127/59 09/04/19 09:00 72 19 129/63 (85) 100 09/04/19 08:55 69 18 40 09/04/19 08:00 40 09/04/19 08:00 98.2 70 18 118/56 (76) 100 09/04/19 07:21 81 18 100 Mechanical Ventilator 40 71 18 40 09/04/19 07:00 73 18 135/63 (87) 100 09/04/19 06:30 79 18 09/04/19 06:00 69 18 118/53 (74) 100 09/04/19 05:39 117/56 09/04/19 05:12 72 18 40 09/04/19 05:00 74 18 117/56 (76) 100 09/04/19 04:00 69 09/04/19 04:00 Mechanical Ventilator Mechanical Ventilator Mechanical Ventilator Mechanical Ventilator 09/04/19 04:00 98.3 73 18 124/103 (110) 100 09/04/19 04:00 40 09/04/19 03:17 74 18 100 Mechanical Ventilator 40 09/04/19 03:02 77 18 Mechanical Ventilator 40 40 09/04/19 03:00 77 18 113/56 (75) 100 09/04/19 02:00 79 19 137/67 (90) 100 09/04/19 02:00 79 09/04/19 01:16 84 18 40 09/04/19 01:00 77 21 129/56 (80) 100 09/04/19 00:03 129/59 3/22/20 00:00 45 09/04/19 00:00 82 09/04/19 00:00 Mechanical Ventilator Mechanical Ventilator Mechanical Ventilator Mechanical Ventilator 09/04/19 00:00 98.4 87 22 131/63 (85) 100 09/03/19 23:26 77 18 100 Mechanical Ventilator 40 09/03/19 23:11 79 18 Mechanical Ventilator 40 40 09/03/19 23:00 81 23 129/59 (82) 100 09/03/19 22:00 83 23 129/59 (82) 100 09/03/19 21:16 77 18 40 09/03/19 21:00 83 23 133/61 (85) 100 09/03/19 20:00 Mechanical Ventilator Mechanical Ventilator Mechanical Ventilator Mechanical Ventilator 09/03/19 20:00 85 09/03/19 20:00 45 09/03/19 20:00 86 23 112/74 (87) 100 09/03/19 19:24 81 18 100 Mechanical Ventilator 40 09/03/19 19:08 82 18 Mechanical Ventilator 40 40 09/03/19 19:00 98.1 84 21 131/99 (110) 100 09/03/19 18:08 80 140/67 09/03/19 18:08 140/67 09/03/19 18:00 84 23 140/67 (91) 100 09/03/19 17:28 82 18 40 09/03/19 17:00 81 22 136/66 (89) 100 09/03/19 16:00 Mechanical Ventilator Mechanical Ventilator Mechanical Ventilator Mechanical Ventilator 09/03/19 16:00 97.4 86 24 123/94 (104) 100 09/03/19 16:00 45 09/03/19 16:00 88 09/03/19 15:00 83 20 140/66 (90) 100 09/03/19 14:57 77 18 100 Mechanical Ventilator 40 78 18 40 09/03/19 14:00 82 21 128/61 (83) 100 09/03/19 13:16 83 18 40 09/03/19 13:00 86 22 125/96 (106) 100 09/03/19 12:06 132/118 09/03/19 12:00 45 09/03/19 12:00 76 09/03/19 12:00 Mechanical Ventilator Mechanical Ventilator Mechanical Ventilator Mechanical Ventilator 09/03/19 12:00 98.3 87 19 132/118 (123) 100 09/03/19 11:21 73 18 100 Mechanical Ventilator 40 75 18 40 09/03/19 11:00 87 23 137/68 (91) 100 Height (Feet): 5 Height (Inches): 4.00 Weight (Pounds): 109 General Appearance: cachetic HEENT: mucous membranes moist, other - orally intubated Respiratory/Chest: lungs clear, other - left side chest tube, on ventilator Abdomen: soft, non tender, other - GT feeding Extremities: no edema Neurologic/Psychiatric: alert, disoriented Microbiology Date/Time Source Procedure Growth Status 09/01/19 17:30 Anus Stool Culture - Final NO SALMONELLA,SHIGELLA,OR CAMPYLOBACT... Complete Laboratory Tests Test 09/04/19 05:30 White Blood Count 5.9 K/UL (4.8-10.8) Red Blood Count 3.36 M/UL (4.20-5.40) L Hemoglobin 9.9 G/DL (12.0-16.0) L Hematocrit 29.5 % (37.0-47.0) L Mean Corpuscular Volume 88 FL (80-99) Mean Corpuscular Hemoglobin 29.6 PG (27.0-31.0) Mean Corpuscular Hemoglobin Concent 33.7 G/DL (32.0-36.0) Red Cell Distribution Width 14.4 % (11.6-14.8) Platelet Count 284 K/UL (150-450) Mean Platelet Volume 4.8 FL (6.5-10.1) L Neutrophils (%) (Auto) 65.4 % (45.0-75.0) Lymphocytes (%) (Auto) 25.1 % (20.0-45.0) Monocytes (%) (Auto) 6.3 % (1.0-10.0) Eosinophils (%) (Auto) 2.9 % (0.0-3.0) Basophils (%) (Auto) 0.4 % (0.0-2.0) Sodium Level 139 MMOL/L (136-145) Potassium Level 3.7 MMOL/L (3.5-5.1) Chloride Level 102 MMOL/L (98-107) Carbon Dioxide Level 26 MMOL/L (21-32) Anion Gap 11 mmol/L (5-15) Blood Urea Nitrogen 48 mg/dL (7-18) H Creatinine 3.7 MG/DL (0.55-1.30) H Estimat Glomerular Filtration Rate 11.8 mL/min (>60) Glucose Level 65 MG/DL (74-106) L Uric Acid 6.9 MG/DL (2.6-7.2) Calcium Level 9.3 MG/DL (8.5-10.1) Phosphorus Level 4.5 MG/DL (2.5-4.9) Magnesium Level 2.5 MG/DL (1.8-2.4) H Total Bilirubin 0.5 MG/DL (0.2-1.0) Aspartate Amino Transf (AST/SGOT) 32 U/L (15-37) Alanine Aminotransferase (ALT/SGPT) 18 U/L (12-78) Alkaline Phosphatase 105 U/L (46-116) C-Reactive Protein, Quantitative 18.2 mg/dL (0.00-0.90) H Pro-B-Type Natriuretic Peptide > 55489 pg/mL (0-125) H Total Protein 6.1 G/DL (6.4-8.2) L Albumin 1.9 G/DL (3.4-5.0) L Globulin 4.2 g/dL Albumin/Globulin Ratio 0.5 (1.0-2.7) L Current Medications Medications (Trade) Dose Ordered Sig/Javier Route PRN Reason Start Time Stop Time Status Last Admin Dose Admin Acetaminophen (Tylenol) 650 mg Q4H PRN GT Mild Pain/Temp > 100.5 09/03/19 07:00 10/03/19 06:59 09/03/19 08:36 Acetylcysteine (Mucomyst) 100 mg Q4HRT [facility] 08/31/19 19:00 11/29/19 18:59 09/04/19 07:06 Albuterol/ Ipratropium (Albuterol/ Ipratropium) 3 ml Q4HRT N 08/31/19 19:00 09/05/19 18:59 09/04/19 07:06 Amlodipine Besylate (Norvasc) 5 mg BID NG 08/23/19 01:45 09/22/19 01:44 09/04/19 09:02 Atropine Sulfate (Atropine) 1 mg Q4H PRN IVP Per rx protocol 08/13/19 08:30 09/12/19 08:29 Chlorhexidine Gluconate (Nae-Hex 2%) 1 applic DAILY@2000 TOPIC 08/15/19 20:00 09/14/19 19:59 09/03/19 20:25 Dextrose (Dextrose 50%) 25 ml Q30M PRN IV Hypoglycemia 09/02/19 06:15 12/01/19 06:14 09/04/19 00:37 Dextrose (Dextrose 50%) 50 ml Q30M PRN IV Hypoglycemia 09/02/19 06:15 12/01/19 06:14 Diphenhydramine HCl (Benadryl) 50 mg Q4H PRN IVP Itching 08/09/19 14:30 09/08/19 14:29 09/04/19 02:20 Epoetin Thomas (Epoetin Thomas(ESRD on dialysis)) 4,000 unit SUBQ 08/12/19 21:00 09/11/19 20:59 09/02/19 21:10 Hydralazine HCl (Apresoline) 10 mg Q4H PRN IV For High Blood Pressure 08/18/19 12:44 09/17/19 12:43 09/01/19 20:27 Hydralazine HCl (Apresoline) 25 mg Q6HR NG 08/23/19 06:00 09/22/19 05:59 09/04/19 05:39 Hydromorphone HCl (Dilaudid) 0.5 mg Q4H PRN IVP Pain Scale (6-10) 09/03/19 07:00 09/10/19 06:59 09/04/19 02:56 Lansoprazole (Prevacid) 30 mg BID GT 08/19/19 09:00 09/18/19 08:59 09/04/19 09:01 Levothyroxine Sodium (Synthroid) 50 mcg DAILY@0630 ORAL 08/25/19 06:30 09/24/19 06:29 09/04/19 06:26 Metoclopramide HCl (Reglan) 5 mg Q8H PRN IVP Nausea & Vomiting 08/09/19 12:39 09/08/19 12:38 Warren Parks MD Sep 04, 2019 10:32
--- NOTE | 2019-09-04 10:35 | Nephrology Progress Note ---
Assessment/Plan Problem List: (1) ESRD (end stage renal disease) on dialysis (2) Malnutrition (3) Anemia in CKD (chronic kidney disease) (4) Hypotension (5) Thrombocytopenia (6) Sepsis Assessment: klebsiella in blood Assessment -Early sepsis with shock. -Healthcare-associated pneumonia. -Severe protein-calorie malnutrition. -Thrombocytopenia. - End-stage renal disease. - History of hypertension. - Bradycardia. - HypoThyroid Plan Continues to have chest tube on the left side was put in on September 01 Patient transfused 3 units of packed RBCs for low hemoglobin Been stable today Remains full code Last dialysis August 29 next dialysis will be scheduled for September 03 Due to her overall medical condition I favor DNR and comfort care Blood pressure fluctuating, will start hydralazine via NG tube for blood pressure Magnesium and potassium supplement intravenously as needed Patient underwent PEG placement August 16 patient remains intubated on ventilator Discussed with RN Aim to wean from ventilator or consider tracheostomy Permacath was removed on August 12 Dialysis 08/11 Transfusion as needed Patient had hematemesis meds IV as possible Surveillance blood cultures tomorrow Plan to put the permacath back in on Thursday if cultures are negative keep BP and BS in check Inflammatory markers per orders Subjective ROS Limited/Unobtainable: Yes Objective Objective Last 24 Hour Vital Signs Date Time Temp Pulse Resp B/P (MAP) Pulse Ox O2 Delivery O2 Flow Rate FiO2 09/04/19 10:00 77 20 133/67 (89) 100 09/04/19 09:02 71 127/59 09/04/19 09:00 72 19 129/63 (85) 100 09/04/19 08:55 69 18 40 09/04/19 08:00 40 09/04/19 08:00 98.2 70 18 118/56 (76) 100 09/04/19 07:21 81 18 100 Mechanical Ventilator 40 71 18 40 09/04/19 07:00 73 18 135/63 (87) 100 09/04/19 06:30 79 18 09/04/19 06:00 69 18 118/53 (74) 100 09/04/19 05:39 117/56 09/04/19 05:12 72 18 40 09/04/19 05:00 74 18 117/56 (76) 100 09/04/19 04:00 69 09/04/19 04:00 Mechanical Ventilator Mechanical Ventilator Mechanical Ventilator Mechanical Ventilator 09/04/19 04:00 98.3 73 18 124/103 (110) 100 09/04/19 04:00 40 09/04/19 03:17 74 18 100 Mechanical Ventilator 40 09/04/19 03:02 77 18 Mechanical Ventilator 40 40 09/04/19 03:00 77 18 113/56 (75) 100 09/04/19 02:00 79 19 137/67 (90) 100 09/04/19 02:00 79 09/04/19 01:16 84 18 40 09/04/19 01:00 77 21 129/56 (80) 100 09/04/19 00:03 129/59 09/04/19 00:00 45 09/04/19 00:00 82 09/04/19 00:00 Mechanical Ventilator Mechanical Ventilator Mechanical Ventilator Mechanical Ventilator 09/04/19 00:00 98.4 87 22 131/63 (85) 100 09/03/19 23:26 77 18 100 Mechanical Ventilator 40 09/03/19 23:11 79 18 Mechanical Ventilator 40 40 09/03/19 23:00 81 23 129/59 (82) 100 09/03/19 22:00 83 23 129/59 (82) 100 09/03/19 21:16 77 18 40 09/03/19 21:00 83 23 133/61 (85) 100 09/03/19 20:00 Mechanical Ventilator Mechanical Ventilator Mechanical Ventilator Mechanical Ventilator 09/03/19 20:00 85 09/03/19 20:00 45 09/03/19 20:00 86 23 112/74 (87) 100 09/03/19 19:24 81 18 100 Mechanical Ventilator 40 09/03/19 19:08 82 18 Mechanical Ventilator 40 40 09/03/19 19:00 98.1 84 21 131/99 (110) 100 09/03/19 18:08 80 140/67 09/03/19 18:08 140/67 09/03/19 18:00 84 23 140/67 (91) 100 09/03/19 17:28 82 18 40 09/03/19 17:00 81 22 136/66 (89) 100 09/03/19 16:00 Mechanical Ventilator Mechanical Ventilator Mechanical Ventilator Mechanical Ventilator 09/03/19 16:00 97.4 86 24 123/94 (104) 100 09/03/19 16:00 45 3/21/20 16:00 88 09/03/19 15:00 83 20 140/66 (90) 100 09/03/19 14:57 77 18 100 Mechanical Ventilator 40 78 18 40 09/03/19 14:00 82 21 128/61 (83) 100 09/03/19 13:16 83 18 40 09/03/19 13:00 86 22 125/96 (106) 100 09/03/19 12:06 132/118 09/03/19 12:00 45 09/03/19 12:00 76 09/03/19 12:00 Mechanical Ventilator Mechanical Ventilator Mechanical Ventilator Mechanical Ventilator 09/03/19 12:00 98.3 87 19 132/118 (123) 100 09/03/19 11:21 73 18 100 Mechanical Ventilator 40 75 18 40 09/03/19 11:00 87 23 137/68 (91) 100 Intake and Output 09/03/19 09/04/19 19:00 07:00 Intake Total 170 ml Output Total 195 ml 230 ml Balance -25 ml -230 ml IV Total 170 ml Output Urine Total 195 ml 210 ml Chest Tube Drainage Total 20 ml # Bowel Movements 4 Laboratory Tests 09/04/19 05:30: White Blood Count 5.9, Red Blood Count 3.36L, Hemoglobin 9.9L, Hematocrit 29.5L , Mean Corpuscular Volume 88, Mean Corpuscular Hemoglobin 29.6, Mean Corpuscular Hemoglobin Concent 33.7, Red Cell Distribution Width 14.4, Platelet Count 284, Mean Platelet Volume 4.8L, Neutrophils (%) (Auto) 65.4, Lymphocytes ( %) (Auto) 25.1, Monocytes (%) (Auto) 6.3, Eosinophils (%) (Auto) 2.9, Basophils (%) (Auto) 0.4, Sodium Level 139, Potassium Level 3.7, Chloride Level 102, Carbon Dioxide Level 26, Anion Gap 11, Blood Urea Nitrogen 48H, Creatinine 3.7H , Estimat Glomerular Filtration Rate 11.8, Glucose Level 65L, Uric Acid 6.9, Calcium Level 9.3, Phosphorus Level 4.5, Magnesium Level 2.5H, Total Bilirubin 0.5, Aspartate Amino Transf (AST/SGOT) 32, Alanine Aminotransferase (ALT/SGPT) 18, Alkaline Phosphatase 105, C-Reactive Protein, Quantitative 18.2H, Pro-B- Type Natriuretic Peptide > 66576Y, Total Protein 6.1L, Albumin 1.9L, Globulin 4.2, Albumin/Globulin Ratio 0.5L Height (Feet): 5 Height (Inches): 4.00 Weight (Pounds): 109 General Appearance: no apparent distress Cardiovascular: normal rate Respiratory/Chest: decreased breath sounds, other - Chest tube on the left side Objective no change William Blackwood MD Sep 04, 2019 10:35
--- NOTE | 2019-09-04 11:04 | Pulmonolgy Critical Care Note ---
Critical Care - Asmt/Plan Assessment/Plan: Pulmonary CCM Progress Note Assessment/Plan respiratory failure hemoptysis resolved Ledt hemothorax sp chest tube hypoxemia chronic renal failure toxic met encephalopathy severe protein calorie malnutrition cachexia left lung whiteout/collapse, improved with intubation previously - persistent s/p intubation anemia pulmonary edema with elevated BNP PLAN sp CT insertion CPT HHN Mucomyst care noted and reviewed discussed with staff and primary failed weaning past few days- 3rd spacing noted d/w family as to trach vs terminal care; per Dr. Beltran keep negative and monitor osmotic pressures ID and other specialist reviewed close follow up discussed elevated head and monitor ROM watch fluid status nutrition as able isolation as needed off load as able and monitor skin exam ROM as able critical at present requires ICU management and close follow up care feeds as able and monitor residuals medications/laboratory data/nursing notes/ICU care reviewed in detail note reviewed and edited care discussed with RN and RT ICU time spent >40 minutes coordinating care Critical Care - Subjective Interval Events: care noted ICU care reviewed meds noted ROS Limited/Unobtainable: Yes Condition: critical EKG Rhythm: Sinus Rhythm Residuals: minimal Tube Feeding Tolerated: yes Critical Care - Objective CXR: reviewed changes ET-Tube: 7.0 ET Position: 21 Vital signs noted Labs noted Objective: WDWN NAD intubated reduced breath sounds bilaterally with some rhonchi O4V2ITC without MRG NABS nontender no HSM no CCE contractures feeding tube in place no distention poorly responsive nonfocal cachectic reviewed and edited Critical Care - Objective Last 24 Hour Vital Signs Date Time Temp Pulse Resp B/P (MAP) Pulse Ox O2 Delivery O2 Flow Rate FiO2 09/04/19 10:00 77 20 133/67 (89) 100 09/04/19 09:02 71 127/59 09/04/19 09:00 72 19 129/63 (85) 100 09/04/19 08:55 69 18 40 09/04/19 08:00 Mechanical Ventilator Mechanical Ventilator Mechanical Ventilator Mechanical Ventilator 09/04/19 08:00 40 09/04/19 08:00 98.2 70 18 118/56 (76) 100 09/04/19 07:21 81 18 100 Mechanical Ventilator 40 71 18 40 09/04/19 07:00 73 18 135/63 (87) 100 09/04/19 06:30 79 18 09/04/19 06:00 69 18 118/53 (74) 100 09/04/19 05:39 117/56 09/04/19 05:12 72 18 40 09/04/19 05:00 74 18 117/56 (76) 100 09/04/19 04:00 69 09/04/19 04:00 Mechanical Ventilator Mechanical Ventilator Mechanical Ventilator Mechanical Ventilator 09/04/19 04:00 98.3 73 18 124/103 (110) 100 09/04/19 04:00 40 09/04/19 03:17 74 18 100 Mechanical Ventilator 40 09/04/19 03:02 77 18 Mechanical Ventilator 40 40 09/04/19 03:00 77 18 113/56 (75) 100 09/04/19 02:00 79 19 137/67 (90) 100 09/04/19 02:00 79 09/04/19 01:16 84 18 40 09/04/19 01:00 77 21 129/56 (80) 100 09/04/19 00:03 129/59 09/04/19 00:00 45 09/04/19 00:00 82 09/04/19 00:00 Mechanical Ventilator Mechanical Ventilator Mechanical Ventilator Mechanical Ventilator 09/04/19 00:00 98.4 87 22 131/63 (85) 100 09/03/19 23:26 77 18 100 Mechanical Ventilator 40 09/03/19 23:11 79 18 Mechanical Ventilator 40 40 09/03/19 23:00 81 23 129/59 (82) 100 09/03/19 22:00 83 23 129/59 (82) 100 09/03/19 21:16 77 18 40 09/03/19 21:00 83 23 133/61 (85) 100 09/03/19 20:00 Mechanical Ventilator Mechanical Ventilator Mechanical Ventilator Mechanical Ventilator 09/03/19 20:00 85 09/03/19 20:00 45 09/03/19 20:00 86 23 112/74 (87) 100 09/03/19 19:24 81 18 100 Mechanical Ventilator 40 09/03/19 19:08 82 18 Mechanical Ventilator 40 40 09/03/19 19:00 98.1 84 21 131/99 (110) 100 09/03/19 18:08 80 140/67 09/03/19 18:08 140/67 09/03/19 18:00 84 23 140/67 (91) 100 3/21/20 17:28 82 18 40 09/03/19 17:00 81 22 136/66 (89) 100 09/03/19 16:00 Mechanical Ventilator Mechanical Ventilator Mechanical Ventilator Mechanical Ventilator 09/03/19 16:00 97.4 86 24 123/94 (104) 100 09/03/19 16:00 45 09/03/19 16:00 88 09/03/19 15:00 83 20 140/66 (90) 100 09/03/19 14:57 77 18 100 Mechanical Ventilator 40 78 18 40 09/03/19 14:00 82 21 128/61 (83) 100 09/03/19 13:16 83 18 40 09/03/19 13:00 86 22 125/96 (106) 100 09/03/19 12:06 132/118 09/03/19 12:00 45 09/03/19 12:00 76 09/03/19 12:00 Mechanical Ventilator Mechanical Ventilator Mechanical Ventilator Mechanical Ventilator 09/03/19 12:00 98.3 87 19 132/118 (123) 100 09/03/19 11:21 73 18 100 Mechanical Ventilator 40 75 18 40 Micro: Microbiology Date/Time Source Procedure Growth Status 09/01/19 17:30 Anus Stool Culture - Final NO SALMONELLA,SHIGELLA,OR CAMPYLOBACT... Complete Accucheck: 122 Critical Care - Subjective ROS Limited/Unobtainable: No FI02: 40 Vent Support Breath Rate: 18 Vent Support Mode: AC Sputum Amount: Small PEEP: 5.0 PIP: 20 Tube Feeding Amount: 15 I&O: Intake and Output 09/03/19 09/04/19 19:00 07:00 Intake Total 170 ml Output Total 195 ml 230 ml Balance -25 ml -230 ml IV Total 170 ml Output Urine Total 195 ml 210 ml Chest Tube Drainage Total 20 ml # Bowel Movements 4 ET-Tube: 7.0 ET Position: 19 Abel Graham MD Sep 04, 2019 11:04
--- NOTE | 2019-09-04 15:05 | Surgery Progress Note ---
Surgery Progress Note Subjective Procedure Performed left chest tube insertion Additional Comments Chest tubes dressing saturated and changed. Minimal chest tube output. X-ray improved. No nausea vomiting fever chills. Objective Last 24 Hour Vital Signs Date Time Temp Pulse Resp B/P (MAP) Pulse Ox O2 Delivery O2 Flow Rate FiO2 09/04/19 14:31 80 18 40 09/04/19 14:00 76 19 126/59 (81) 100 09/04/19 13:00 83 19 127/61 (83) 100 09/04/19 12:43 86 20 40 09/04/19 12:00 40 09/04/19 12:00 98.3 82 23 125/59 (81) 100 09/04/19 12:00 Mechanical Ventilator Mechanical Ventilator Mechanical Ventilator Mechanical Ventilator 09/04/19 11:11 77 20 100 Mechanical Ventilator 40 81 18 40 09/04/19 11:06 81 09/04/19 11:00 79 19 131/59 (83) 100 09/04/19 10:00 77 20 133/67 (89) 100 09/04/19 09:02 71 127/59 09/04/19 09:00 72 19 129/63 (85) 100 09/04/19 08:55 69 18 40 09/04/19 08:00 Mechanical Ventilator Mechanical Ventilator Mechanical Ventilator Mechanical Ventilator 09/04/19 08:00 40 09/04/19 08:00 98.2 70 18 118/56 (76) 100 09/04/19 07:57 70 09/04/19 07:21 81 18 100 Mechanical Ventilator 40 71 18 40 09/04/19 07:00 73 18 135/63 (87) 100 09/04/19 06:30 79 18 09/04/19 06:00 69 18 118/53 (74) 100 09/04/19 05:39 117/56 09/04/19 05:12 72 18 40 09/04/19 05:00 74 18 117/56 (76) 100 09/04/19 04:00 69 09/04/19 04:00 Mechanical Ventilator Mechanical Ventilator Mechanical Ventilator Mechanical Ventilator 09/04/19 04:00 98.3 73 18 124/103 (110) 100 09/04/19 04:00 40 09/04/19 03:17 74 18 100 Mechanical Ventilator 40 09/04/19 03:02 77 18 Mechanical Ventilator 40 40 09/04/19 03:00 77 18 113/56 (75) 100 09/04/19 02:00 79 19 137/67 (90) 100 09/04/19 02:00 79 09/04/19 01:16 84 18 40 09/04/19 01:00 77 21 129/56 (80) 100 09/04/19 00:03 129/59 09/04/19 00:00 45 09/04/19 00:00 82 09/04/19 00:00 Mechanical Ventilator Mechanical Ventilator Mechanical Ventilator Mechanical Ventilator 09/04/19 00:00 98.4 87 22 131/63 (85) 100 09/03/19 23:26 77 18 100 Mechanical Ventilator 40 09/03/19 23:11 79 18 Mechanical Ventilator 40 40 09/03/19 23:00 81 23 129/59 (82) 100 09/03/19 22:00 83 23 129/59 (82) 100 09/03/19 21:16 77 18 40 09/03/19 21:00 83 23 133/61 (85) 100 09/03/19 20:00 Mechanical Ventilator Mechanical Ventilator Mechanical Ventilator Mechanical Ventilator 09/03/19 20:00 85 09/03/19 20:00 45 09/03/19 20:00 86 23 112/74 (87) 100 09/03/19 19:24 81 18 100 Mechanical Ventilator 40 09/03/19 19:08 82 18 Mechanical Ventilator 40 40 09/03/19 19:00 98.1 84 21 131/99 (110) 100 09/03/19 18:08 80 140/67 09/03/19 18:08 140/67 09/03/19 18:00 84 23 140/67 (91) 100 09/03/19 17:28 82 18 40 09/03/19 17:00 81 22 136/66 (89) 100 09/03/19 16:00 Mechanical Ventilator Mechanical Ventilator Mechanical Ventilator Mechanical Ventilator 09/03/19 16:00 97.4 86 24 123/94 (104) 100 09/03/19 16:00 45 09/03/19 16:00 88 I&O Intake and Output 09/03/19 09/04/19 19:00 07:00 Intake Total 170 ml Output Total 195 ml 230 ml Balance -25 ml -230 ml IV Total 170 ml Output Urine Total 195 ml 210 ml Chest Tube Drainage Total 20 ml # Bowel Movements 4 Dressing: saturated Drains: other Cardiovascular: RSR Respiratory: decreased breath sounds Abdomen: soft, non-tender, present bowel sounds Extremities: no cyanosis Laboratory Tests Test 09/04/19 05:30 White Blood Count 5.9 K/UL (4.8-10.8) Red Blood Count 3.36 M/UL (4.20-5.40) L Hemoglobin 9.9 G/DL (12.0-16.0) L Hematocrit 29.5 % (37.0-47.0) L Mean Corpuscular Volume 88 FL (80-99) Mean Corpuscular Hemoglobin 29.6 PG (27.0-31.0) Mean Corpuscular Hemoglobin Concent 33.7 G/DL (32.0-36.0) Red Cell Distribution Width 14.4 % (11.6-14.8) Platelet Count 284 K/UL (150-450) Mean Platelet Volume 4.8 FL (6.5-10.1) L Neutrophils (%) (Auto) 65.4 % (45.0-75.0) Lymphocytes (%) (Auto) 25.1 % (20.0-45.0) Monocytes (%) (Auto) 6.3 % (1.0-10.0) Eosinophils (%) (Auto) 2.9 % (0.0-3.0) Basophils (%) (Auto) 0.4 % (0.0-2.0) Sodium Level 139 MMOL/L (136-145) Potassium Level 3.7 MMOL/L (3.5-5.1) Chloride Level 102 MMOL/L (98-107) Carbon Dioxide Level 26 MMOL/L (21-32) Anion Gap 11 mmol/L (5-15) Blood Urea Nitrogen 48 mg/dL (7-18) H Creatinine 3.7 MG/DL (0.55-1.30) H Estimat Glomerular Filtration Rate 11.8 mL/min (>60) Glucose Level 65 MG/DL (74-106) L Uric Acid 6.9 MG/DL (2.6-7.2) Calcium Level 9.3 MG/DL (8.5-10.1) Phosphorus Level 4.5 MG/DL (2.5-4.9) Magnesium Level 2.5 MG/DL (1.8-2.4) H Total Bilirubin 0.5 MG/DL (0.2-1.0) Aspartate Amino Transf (AST/SGOT) 32 U/L (15-37) Alanine Aminotransferase (ALT/SGPT) 18 U/L (12-78) Alkaline Phosphatase 105 U/L (46-116) C-Reactive Protein, Quantitative 18.2 mg/dL (0.00-0.90) H Pro-B-Type Natriuretic Peptide > 84463 pg/mL (0-125) H Total Protein 6.1 G/DL (6.4-8.2) L Albumin 1.9 G/DL (3.4-5.0) L Globulin 4.2 g/dL Albumin/Globulin Ratio 0.5 (1.0-2.7) L Assessment Post-op Diagnosis same Plan Problems: (1) Malnutrition Assessment & Plan: DAILY ESTIMATED NEEDS: Needs based on ESRD+ HD, underweight, wound/ 39.5kg 35-40 kcals/kg 7536-6234 total kcals 1.25-1.8 g protein/kg 49-71 g total protein 20-22 mL/kg 790-869 total fluid mLs NUTRITION DIAGNOSIS: * Increased kcal and protein needs r/t underweight status, HD needs, wuond healing as evidenced by pt is underweight per guidelines, ESRD, on HD, admitted non-blanching erythema wounds @ BL heels and sacrum * Swallowing difficulty R/T dysphagia as evidenced by CLERK recommends temporary nonoral feeding at this time, s/p NGT insertion, on NGT feeding-> now s/p self removal, NPO. CURRENT TF:NPO PO DIET RECOMMENDATIONS: WHEN SAFE FOR ORAL DIET -> renal/ texture per CLERK ENTERAL NUTRITION RECOMMENDATIONS: W/ GI access: Nepro @ 35ml/hr x 22 hrs to provide 770ml, 1386kcal, 62g prot, 560ml free water * W/ GI access, resume TF on Nepro * Initiate Nepro @ 15ml/hr x 6 hrs, advance 10ml q 4-6 hrs as tolerated to goal rate. * Hold 1 hour before and after Synthroid med * HOB over 30 degrees/ water flush per MD. ADDITIONAL RECOMMENDATIONS: 1) Calibrated bed scale wt for accurate CBW -> daily wt monitoring Per HD record: dry wt on 07/30=39.5kg (87lbs) 2) Wound care: (W/ GI access) add Nephorivte x 1 + Balta BID 3) Monitor NPO status: without GI access at this time, s/p pulling out NGT 4) Monitor for hypoglycemia while NPO 5) Monitor for continuity of HD (2) Septic arthritis Assessment & Plan: Pt presented on admission with generalized scaly rash . pt noted to be restless and scratching at skin. Bleeding from oral mucosa noted. Joint deformity noted to R shoulder. Surgical incision approximated with 11 sutures. Erythema but no exudate,or elevation in skin temp at site of incision. Historical incision R hip that is tunneled.Small amt seropurulent exudate noted. Periwound is erythematous,but no elevation in skin temp noted. No odor noted. Non-blanching erythema noted to sacrum. Perianal area is erythematous and excoriated. L heel is boggy with non-blanching erythema. R heel is soft with non-blanching erythema. No evidence of skin breakdown to all other bony prominences. Tx.plan: Cover R shoulder with Drsg and change daily and prn. Cleanse R hip wound with Saline. Apply Therahoney.Apply Cavilon Skin Barrier periwound. Cover with Optifoam drsg. Change every 3 days and prn. Apply Moisture Barrier Paste to perianal area and buttocks. Cover Sacrum with Optifoam drsg. Change every 3 days and prn. Apply Cavilon Skin Barrier to both heels. Cover each heel with Optifoam drsg. Change every 7 days and prn. APM/ELVIA Mattress overlay. Reposition at least every 2hours or as tolerated. Off-load heels with pillow. HD cath necessary HD as renal likely will need intubation (3) Wound, open, hip or thigh with complication Assessment & Plan: slow healing will need nutritional optimization difficult ng tube peg when stable sutures removed from right shoulder comfortable wean vent may need trach (4) Abscess of right hip (5) possible septic arthritis (6) Renal failure (ARF), acute on chronic Assessment & Plan: cont HD will need tunneled cath placement okay to use fem line for now but will need change soon. line monitored and clean dressings going well (7) Pneumonia Assessment & Plan: intubated on vent support not tolerating weaning may need trach hemothorax likely after thoracentesis Chest CT noted Left chest tube placed With plan for trach chest tube can be considered but overall prognosis is very poor Additional Comments Continue with chest tube. We will plan for trach this coming week. Indicated recommended and discussed with medical teams and family. Camilo James Sep 04, 2019 15:05
--- NOTE | 2019-09-04 17:16 | Hematology/Onc Progress Note ---
Assessment/Plan Assessment/Plan # Thrombocytopenia - potential causes multifactorial, evaluate liver and viral etiologies to begin, in this case due to sepsis with septic shock also with cirrhosis and liver disease --> Hep panel and HIV ordered -> neg --> US abd to evaluate for cirrhosis and hsm ordered --> reviewed --> Peripheral smear ordered to evaluate for blasts /schistocytes --> abx and other meds have been reviewed --> ok for ppx if plt >50k w/ either heparin or lovenox --> Transfuse if Plt < 20k and fever, or if Plt < 10k without fever --> okay for permacath change once plt better--> for 08/14 --> plt trend: 43-->83-->237k-->292-->341-->315-->388 -->444-->530 # Anemia of chronic disease due to underlying chronic medical issues, multifactorial v Gi bleed --> Anemia workup has been ordered, rule out gi bleed --> No evidence of hemolysis is noted, peripheral smear has been reviewed. --> Hgb goal >7. Transfuse prn. --> Epogen has been started --> HOLD OFF IRON ferritin is >1000 --> Medications have been reviewed --> low threshold for gi evaluation in case has occult + --> hgb 9-->6.7-->9.2 -->10.5-->10.6 -->10.7-->10-->10.5-->9.8-->10.4-->9.5--> 3.6-->9.6 --> blood tx: 08/11, 08/31 --> CT Chest pendig r/o hemothorax --> does show Confirmation of a large left hemothorax. Complete atelectasis of the left lower lobe and partial left upper lobe atelectasis demonstrated. Mild rightward shift of the heart and mediastinum. # Sepsis with shock. --> abx as per id, recs noted --> pressors as needed # Healthcare-associated pneumonia. --> recs reviewed --> abx: jung/micafungin-->jung --> 08/24 us chest: moderate left pleural effusion # Severe protein-calorie malnutrition. --> nutritional support # End-stage renal disease --> had as renal hd --> with permacath # History of hypertension. --> per cards, now with Bradycardia. # resp failure s/p vent/trach # HypoThyroid # Ngt feedings # Dvt ppx scd's The timing of this note does not necessarily reflect the time of the patient was seen. Greatly appreciate consultation. Subjective Allergies: Coded Allergies: VANCOMYCIN (Unverified Allergy, Unknown, 08/02/19) Subjective 08/11: no bleeding or chills, labs reviewed, no major bleeding, plt less than 50k 08/12: icu, s/p blood, hgb improved to 9.2, 08/14: icu, pending consent for thora and permacath, labs reviewed 08/15: new permacath placed, no bleeding, for hd, plt much improved, started lovenox sq 08/16: ett to be adjusted, bp on high end, micafungin started, possible bronch 08/17: weaning as per pulm, no events otherwise, labs noted 08/18: no events no bleeding, remains confused on vent, for hd 08/20: icu, failed to wean, labs reviewed, jung 08/21: resting in bed, no overnight events, labs reviewed 08/22: awake, confused, restraints, no overnight events 08/23: no events, no bleeding, on ppi bid 08/24: icu, failed to wean, labs reviewed 08/25: no overnight events, us chest, restraints, afebrile 08/26 difficult in weaning, nad, seen by surg, pulm labs noted 08/27 awake on restraints, thoracentesis for am, labs reviewed 08/29 no bleeding, no night sweats, no major changes, on ppi bid 08/30 no major events, remains on vent, no bleeding, dw pcp 08/31 hgb dropped to 3.6, has been transfused with prbc, in icu, dw Rn, ct chest pend 09/01 no major events, no bleeding, labs noted, hgb remains low, hgb 9.6 09/03 lethargic, left chest tube dry/intact, off abx, vent Objective Objective Current Medications Medications (Trade) Dose Ordered Sig/Javier Route PRN Reason Start Time Stop Time Status Last Admin Dose Admin Acetaminophen (Tylenol) 650 mg Q4H PRN GT Mild Pain/Temp > 100.5 09/03/19 07:00 10/03/19 06:59 09/03/19 08:36 Acetylcysteine (Mucomyst) 100 mg Q4HRT N 08/31/19 19:00 11/29/19 18:59 09/04/19 10:56 Albuterol/ Ipratropium (Albuterol/ Ipratropium) 3 ml Q4HRT N 08/31/19 19:00 09/05/19 18:59 09/04/19 10:56 Amlodipine Besylate (Norvasc) 5 mg BID NG 08/23/19 01:45 09/22/19 01:44 09/04/19 09:02 Atropine Sulfate (Atropine) 1 mg Q4H PRN IVP Per rx protocol 08/13/19 08:30 09/12/19 08:29 Chlorhexidine Gluconate (Nae-Hex 2%) 1 applic DAILY@1999 TOPIC 08/15/19 20:00 09/14/19 19:59 09/03/19 20:25 Dextrose (Dextrose 50%) 25 ml Q30M PRN IV Hypoglycemia 09/02/19 06:15 12/01/19 06:14 09/04/19 12:11 Dextrose (Dextrose 50%) 50 ml Q30M PRN IV Hypoglycemia 09/02/19 06:15 12/01/19 06:14 Diphenhydramine HCl (Benadryl) 50 mg Q4H PRN IVP Itching 08/09/19 14:30 09/08/19 14:29 09/04/19 02:20 Epoetin Thomas (Epoetin Thomas(ESRD on dialysis)) 4,000 unit THU-THU-THU SUBQ 08/12/19 21:00 09/11/19 20:59 09/02/19 21:10 Hydralazine HCl (Apresoline) 10 mg Q4H PRN IV For High Blood Pressure 08/18/19 12:44 09/17/19 12:43 09/01/19 20:27 Hydralazine HCl (Apresoline) 25 mg Q6HR NG 08/23/19 06:00 09/22/19 05:59 09/04/19 05:39 Hydromorphone HCl (Dilaudid) 0.5 mg Q4H PRN IVP Pain Scale (6-10) 09/03/19 07:00 09/10/19 06:59 09/04/19 02:56 Lansoprazole (Prevacid) 30 mg BID GT 08/19/19 09:00 09/18/19 08:59 09/04/19 09:01 Levothyroxine Sodium (Synthroid) 50 mcg DAILY@0630 ORAL 08/25/19 06:30 09/24/19 06:29 09/04/19 06:26 Metoclopramide HCl (Reglan) 5 mg Q8H PRN IVP Nausea & Vomiting 08/09/19 12:39 09/08/19 12:38 Last 24 Hour Vital Signs Date Time Temp Pulse Resp B/P (MAP) Pulse Ox O2 Delivery O2 Flow Rate FiO2 09/04/19 17:02 81 19 40 09/04/19 16:13 81 09/04/19 16:00 81 18 129/62 (84) 100 09/04/19 16:00 40 09/04/19 16:00 Mechanical Ventilator Mechanical Ventilator Mechanical Ventilator Mechanical Ventilator 09/04/19 15:00 76 17 125/58 (80) 100 09/04/19 14:31 80 18 40 09/04/19 14:00 76 19 126/59 (81) 100 09/04/19 13:00 83 19 127/61 (83) 100 09/04/19 12:43 86 20 40 09/04/19 12:00 40 09/04/19 12:00 98.3 82 23 125/59 (81) 100 09/04/19 12:00 Mechanical Ventilator Mechanical Ventilator Mechanical Ventilator Mechanical Ventilator 09/04/19 11:11 77 20 100 Mechanical Ventilator 40 81 18 40 09/04/19 11:06 81 09/04/19 11:00 79 19 131/59 (83) 100 09/04/19 10:00 77 20 133/67 (89) 100 09/04/19 09:02 71 127/59 09/04/19 09:00 72 19 129/63 (85) 100 09/04/19 08:55 69 18 40 09/04/19 08:00 Mechanical Ventilator Mechanical Ventilator Mechanical Ventilator Mechanical Ventilator 09/04/19 08:00 40 09/04/19 08:00 98.2 70 18 118/56 (76) 100 09/04/19 07:57 70 09/04/19 07:21 81 18 100 Mechanical Ventilator 40 71 18 40 09/04/19 07:00 73 18 135/63 (87) 100 09/04/19 06:30 79 18 09/04/19 06:00 69 18 118/53 (74) 100 09/04/19 05:39 117/56 09/04/19 05:12 72 18 40 09/04/19 05:00 74 18 117/56 (76) 100 09/04/19 04:00 69 09/04/19 04:00 Mechanical Ventilator Mechanical Ventilator Mechanical Ventilator Mechanical Ventilator 09/04/19 04:00 98.3 73 18 124/103 (110) 100 09/04/19 04:00 40 09/04/19 03:17 74 18 100 Mechanical Ventilator 40 09/04/19 03:02 77 18 Mechanical Ventilator 40 40 09/04/19 03:00 77 18 113/56 (75) 100 09/04/19 02:00 79 19 137/67 (90) 100 09/04/19 02:00 79 09/04/19 01:16 84 18 40 09/04/19 01:00 77 21 129/56 (80) 100 09/04/19 00:03 129/59 09/04/19 00:00 45 09/04/19 00:00 82 09/04/19 00:00 Mechanical Ventilator Mechanical Ventilator Mechanical Ventilator Mechanical Ventilator 09/04/19 00:00 98.4 87 22 131/63 (85) 100 09/03/19 23:26 77 18 100 Mechanical Ventilator 40 09/03/19 23:11 79 18 Mechanical Ventilator 40 40 09/03/19 23:00 81 23 129/59 (82) 100 09/03/19 22:00 83 23 129/59 (82) 100 09/03/19 21:16 77 18 40 09/03/19 21:00 83 23 133/61 (85) 100 09/03/19 20:00 Mechanical Ventilator Mechanical Ventilator Mechanical Ventilator Mechanical Ventilator 09/03/19 20:00 85 09/03/19 20:00 45 09/03/19 20:00 86 23 112/74 (87) 100 09/03/19 19:24 81 18 100 Mechanical Ventilator 40 09/03/19 19:08 82 18 Mechanical Ventilator 40 40 09/03/19 19:00 98.1 84 21 131/99 (110) 100 09/03/19 18:08 80 140/67 09/03/19 18:08 140/67 09/03/19 18:00 84 23 140/67 (91) 100 09/03/19 17:28 82 18 40 09/03/19 17:00 81 22 136/66 (89) 100 09/03/19 16:00 Mechanical Ventilator Mechanical Ventilator Mechanical Ventilator Mechanical Ventilator 09/03/19 16:00 97.4 86 24 123/94 (104) 100 09/03/19 16:00 45 09/03/19 16:00 88 09/03/19 15:00 83 20 140/66 (90) 100 09/03/19 14:57 77 18 100 Mechanical Ventilator 40 78 18 40 09/03/19 14:00 82 21 128/61 (83) 100 09/03/19 13:16 83 18 40 09/03/19 13:00 86 22 125/96 (106) 100 09/03/19 12:06 132/118 09/03/19 12:00 45 09/03/19 12:00 76 09/03/19 12:00 Mechanical Ventilator Mechanical Ventilator Mechanical Ventilator Mechanical Ventilator 09/03/19 12:00 98.3 87 19 132/118 (123) 100 09/03/19 11:21 73 18 100 Mechanical Ventilator 40 75 18 40 09/03/19 11:00 87 23 137/68 (91) 100 09/03/19 10:00 86 25 136/53 (80) 100 09/03/19 09:18 90 18 40 09/03/19 09:00 89 16 136/83 (100) 100 09/03/19 08:35 92 149/86 09/03/19 08:00 45 09/03/19 08:00 Mechanical Ventilator Mechanical Ventilator Mechanical Ventilator Mechanical Ventilator 09/03/19 08:00 97.3 94 15 148/112 (124) 100 09/03/19 08:00 89 09/03/19 07:40 96 09/03/19 07:00 88 23 140/76 (97) 100 09/03/19 06:45 89 18 100 Mechanical Ventilator 40 92 18 40 09/03/19 06:30 90 18 09/03/19 06:05 137/76 09/03/19 06:00 93 28 137/76 (96) 100 09/03/19 05:31 92 18 40 09/03/19 05:00 93 21 134/72 (92) 100 09/03/19 04:00 45 09/03/19 04:00 Mechanical Ventilator Mechanical Ventilator Mechanical Ventilator Mechanical Ventilator 09/03/19 04:00 97.9 92 19 128/71 (90) 100 09/03/19 04:00 93 09/03/19 03:46 88 19 100 Mechanical Ventilator 40 91 18 40 09/03/19 03:00 93 30 140/68 (92) 100 09/03/19 02:00 97 23 144/69 (94) 100 09/03/19 01:42 94 19 40 09/03/19 01:00 95 20 135/64 (87) 100 09/03/19 00:44 127/60 09/03/19 00:00 45 09/03/19 00:00 97.8 90 18 127/60 (82) 100 09/03/19 00:00 81 09/03/19 00:00 Mechanical Ventilator Mechanical Ventilator Mechanical Ventilator Mechanical Ventilator 09/02/19 23:16 78 18 100 Mechanical Ventilator 40 83 18 40 09/02/19 23:00 78 18 129/62 (84) 100 09/02/19 22:00 81 18 141/64 (89) 100 09/02/19 21:09 79 18 40 09/02/19 21:00 86 20 137/69 (91) 100 09/02/19 20:00 98.0 86 18 138/62 (87) 100 09/02/19 20:00 89 09/02/19 20:00 Mechanical Ventilator Mechanical Ventilator Mechanical Ventilator Mechanical Ventilator 09/02/19 20:00 45 09/02/19 19:20 85 18 100 Mechanical Ventilator 40 87 18 40 09/02/19 19:00 91 18 137/65 (89) 100 09/02/19 18:29 79 156/70 09/02/19 18:29 156/70 09/02/19 18:00 89 21 159/68 (98) 100 09/02/19 17:16 86 18 40 Intake and Output 09/03/19 09/04/19 19:00 07:00 Intake Total 170 ml Output Total 195 ml 230 ml Balance -25 ml -230 ml IV Total 170 ml Output Urine Total 195 ml 210 ml Chest Tube Drainage Total 20 ml # Bowel Movements 4 Labs Test 09/02/19 03:40 09/03/19 04:20 09/04/19 05:30 White Blood Count 8.8 K/UL (4.8-10.8) 6.4 K/UL (4.8-10.8) 5.9 K/UL (4.8-10.8) Red Blood Count 3.14 M/UL (4.20-5.40) 3.55 M/UL (4.20-5.40) 3.36 M/UL (4.20-5.40) Hemoglobin 9.6 G/DL (12.0-16.0) 10.8 G/DL (12.0-16.0) 9.9 G/DL (12.0-16.0) Hematocrit 27.5 % (37.0-47.0) 31.2 % (37.0-47.0) 29.5 % (37.0-47.0) Mean Corpuscular Volume 88 FL (80-99) 88 FL (80-99) 88 FL (80-99) Mean Corpuscular Hemoglobin 30.7 PG (27.0-31.0) 30.3 PG (27.0-31.0) 29.6 PG (27.0-31.0) Mean Corpuscular Hemoglobin Concent 34.9 G/DL (32.0-36.0) 34.5 G/DL (32.0-36.0) 33.7 G/DL (32.0-36.0) Red Cell Distribution Width 14.5 % (11.6-14.8) 14.7 % (11.6-14.8) 14.4 % (11.6-14.8) Platelet Count 230 K/UL (150-450) 289 K/UL (150-450) 284 K/UL (150-450) Mean Platelet Volume 4.7 FL (6.5-10.1) 4.9 FL (6.5-10.1) 4.8 FL (6.5-10.1) Neutrophils (%) (Auto) 82.4 % (45.0-75.0) 79.7 % (45.0-75.0) 65.4 % (45.0-75.0) Lymphocytes (%) (Auto) 14.3 % (20.0-45.0) 15.3 % (20.0-45.0) 25.1 % (20.0-45.0) Monocytes (%) (Auto) 2.7 % (1.0-10.0) 4.1 % (1.0-10.0) 6.3 % (1.0-10.0) Eosinophils (%) (Auto) 0.3 % (0.0-3.0) 0.7 % (0.0-3.0) 2.9 % (0.0-3.0) Basophils (%) (Auto) 0.3 % (0.0-2.0) 0.3 % (0.0-2.0) 0.4 % (0.0-2.0) Prothrombin Time 11.2 SEC (9.30-11.50) Prothromb Time International Ratio 1.1 (0.9-1.1) Activated Partial Thromboplast Time 29 SEC (23-33) Sodium Level 145 MMOL/L (136-145) 143 MMOL/L (136-145) 139 MMOL/L (136-145) Potassium Level 3.7 MMOL/L (3.5-5.1) 3.6 MMOL/L (3.5-5.1) 3.7 MMOL/L (3.5-5.1) Chloride Level 106 MMOL/L (98-107) 104 MMOL/L (98-107) 102 MMOL/L (98-107) Carbon Dioxide Level 27 MMOL/L (21-32) 27 MMOL/L (21-32) 26 MMOL/L (21-32) Anion Gap 12 mmol/L (5-15) 12 mmol/L (5-15) 11 mmol/L (5-15) Blood Urea Nitrogen 42 mg/dL (7-18) 45 mg/dL (7-18) 48 mg/dL (7-18) Creatinine 3.1 MG/DL (0.55-1.30) 3.5 MG/DL (0.55-1.30) 3.7 MG/DL (0.55-1.30) Estimat Glomerular Filtration Rate 14.5 mL/min (>60) 12.6 mL/min (>60) 11.8 mL/min (>60) Glucose Level 79 MG/DL (74-106) 123 MG/DL (74-106) 65 MG/DL (74-106) Calcium Level 9.2 MG/DL (8.5-10.1) 9.2 MG/DL (8.5-10.1) 9.3 MG/DL (8.5-10.1) Phosphorus Level 3.9 MG/DL (2.5-4.9) 4.5 MG/DL (2.5-4.9) Magnesium Level 2.3 MG/DL (1.8-2.4) 2.5 MG/DL (1.8-2.4) Total Bilirubin 0.6 MG/DL (0.2-1.0) 0.6 MG/DL (0.2-1.0) 0.5 MG/DL (0.2-1.0) Aspartate Amino Transf (AST/SGOT) 68 U/L (15-37) 47 U/L (15-37) 32 U/L (15-37) Alanine Aminotransferase (ALT/SGPT) 36 U/L (12-78) 28 U/L (12-78) 18 U/L (12-78) Alkaline Phosphatase 115 U/L (46-116) 117 U/L (46-116) 105 U/L (46-116) C-Reactive Protein, Quantitative 26.4 mg/dL (0.00-0.90) 18.2 mg/dL (0.00-0.90) Pro-B-Type Natriuretic Peptide > 70968 pg/mL (0-125) > 43167 pg/mL (0-125) Total Protein 6.2 G/DL (6.4-8.2) 6.8 G/DL (6.4-8.2) 6.1 G/DL (6.4-8.2) Albumin 2.1 G/DL (3.4-5.0) 2.2 G/DL (3.4-5.0) 1.9 G/DL (3.4-5.0) Globulin 4.1 g/dL 4.6 g/dL 4.2 g/dL Albumin/Globulin Ratio 0.5 (1.0-2.7) 0.5 (1.0-2.7) 0.5 (1.0-2.7) Uric Acid 6.9 MG/DL (2.6-7.2) Height (Feet): 5 Height (Inches): 4.00 Weight (Pounds): 110 Objective gen: nad pulm: on trach+ / vent, decreased breath sounds left, chest tube+ cv: rrr, no gmr abd: sfot, nt, nd ++ gt ext: no cce Gio Rob MD Sep 04, 2019 17:16
--- NOTE | 2019-09-04 19:29 | Progress Note ---
DATE: 09/04/2019 CARDIOLOGY PROGRESS NOTE SUBJECTIVE: The patient remains on vent. Awake and alert. Chest tube remains in place. Decreased bloody output noted. PHYSICAL EXAMINATION: VITAL SIGNS: Blood pressure 127/59, heart rate 69, respirations 18. Sinus rhythm on monitor. No bradycardic episodes of significance noted. LUNGS: Rhonchi and rales on the right greater than left. CARDIAC: Regular rhythm and rate. Normal S1, S2 with no new murmur. ABDOMEN: Soft, nontender. Feeding tube intact. EXTREMITIES: There is no edema. LABORATORY DATA: White count 5.9, hemoglobin 9.9. Sodium 139, potassium 3.7, bicarb 26, BUN 48, creatinine 3.7. IMPRESSION: 1. Respiratory failure. 2. Hemothorax, status post chest tube. 3. Severe anemia, status post transfusions. 4. Sinus bradycardia, improved with thyroid replacement. 5. Diastolic dysfunction with chronic congestive heart failure. 6. End-stage renal disease, on hemodialysis. PLAN: 1. Ventilator support. 2. Weaning efforts. 3. Chest tube management. 4. Hemodialysis with ultrafiltration for volume management. 5. Cardiac monitoring. 6. May need tracheostomy. 7. We will continue to follow. 8. Adjustments in antihypertensive and anti-failure regimen will be ongoing based on clinical parameters that are remaining dynamic. Abel Stubbs M.D. DR: NESS JOB#: [id number] CC:
[2019-09-04] MEDS: Dyna-Hex 2% Top Sol 2oz TOPIC SCH (20:15)
[2019-09-05] VITALS (25 sets, daily range): BP systolic 100–176; BP diastolic 39–146
[2019-09-05] MEDS: Hydromorphone 0.5mg/0.5ml inj IVP PRN (03:04)
[2019-09-05] MEDS: Albuterol/Ipratropium 3ml neb HHN SCH ×5 (03:48→22:30)
[2019-09-05] MEDS: HydrALAZINE 25mg tab NG SCH ×3 (06:02→18:18)
[2019-09-05] MEDS: DiphenhydrAMINE 50mg/ml Inj IVP PRN (06:12)
[2019-09-05 06:13] LABS: BASOPHILS % (AUTO) 0.7 % (0.0-2.0); EOSINOPHILS % (AUTO) 1.5 % (0.0-3.0); HEMATOCRIT 28.8 % (37.0-47.0); HEMOGLOBIN 9.7 G/DL (12.0-16.0); LYMPHOCYTES % (AUTO) 23.3 % (20.0-45.0); MEAN CORPUSCULAR VOLUME 89 FL (80-99); MONOCYTES % (AUTO) 4.9 % (1.0-10.0); NEUTROPHILS % (AUTO) 69.6 % (45.0-75.0); PLATELET COUNT 258 K/UL (150-450); RED BLOOD COUNT 3.25 M/UL (4.20-5.40)
[2019-09-05 06:17] LABS: ALANINE AMINOTRANSFERASE 13 U/L (12-78); ALBUMIN 2.1 G/DL (3.4-5.0); ALBUMIN/GLOBULIN RATIO 0.6 (1.0-2.7); ALKALINE PHOSPHATASE 135 U/L (46-116); ANION GAP 10 mmol/L (5-15); ASPARTATE AMINO TRANSFERASE 23 U/L (15-37); BILIRUBIN,TOTAL 0.4 MG/DL (0.2-1.0); BLOOD UREA NITROGEN 27 mg/dL (7-18); CALCIUM 8.8 MG/DL (8.5-10.1); CARBON DIOXIDE 29 MMOL/L (21-32); CHLORIDE 105 MMOL/L (98-107); CREATININE 2.6 MG/DL (0.55-1.30); POTASSIUM 3.4 MMOL/L (3.5-5.1); SODIUM 144 MMOL/L (136-145)
--- NOTE | 2019-09-05 07:17 | General Progress Note ---
Assessment/Plan Problem List: (1) Hypothyroid ICD Codes: E03.9 - Hypothyroidism, unspecified SNOMED: 76979656 (2) ESRD (end stage renal disease) on dialysis ICD Codes: N18.6 - End stage renal disease; Z99.2 - Dependence on renal dialysis SNOMED: 751003181 (3) Hypotension ICD Codes: I95.9 - Hypotension, unspecified SNOMED: 93141757 Qualifiers: Qualified Codes: I95.3 - Hypotension of hemodialysis (4) Pneumonia ICD Codes: J18.9 - Pneumonia, unspecified organism SNOMED: 226980835 Qualifiers: Qualified Codes: J18.9 - Pneumonia, unspecified organism (5) Diabetes mellitus ICD Codes: E11.9 - Type 2 diabetes mellitus without complications SNOMED: 42239702 Status: stable, not improved, unchanged, deteriorating Assessment/Plan: repeat TSH, free T4 continue Levothyroxine IV 50 mcg daily continue glucose monitoring without insulin coverage hypoglycemia protocol in order Subjective ROS Limited/Unobtainable: Yes Allergies: Coded Allergies: VANCOMYCIN (Unverified Allergy, Unknown, 08/02/19) Subjective events noted interval notes reviewed on vent in ICU glucose values are stable Item Value Date Time Bedside Blood Glucose 118 mg/dl 09/05/19 0600 Bedside Blood Glucose 115 mg/dl 09/05/19 0000 Bedside Blood Glucose 86 mg/dl 09/04/19 1750 Bedside Blood Glucose 117 mg/dl 09/04/19 1230 Bedside Blood Glucose 122 mg/dl H 09/04/19 0600 Objective Last 24 Hour Vital Signs Date Time Temp Pulse Resp B/P (MAP) Pulse Ox O2 Delivery O2 Flow Rate FiO2 09/05/19 06:30 80 18 09/05/19 06:02 138/57 09/05/19 06:00 78 28 137/63 (87) 100 09/05/19 05:15 72 18 40 09/05/19 05:00 84 28 138/57 (84) 100 09/05/19 05:00 40 09/05/19 04:02 82 18 100 Mechanical Ventilator 40 09/05/19 04:00 98.4 85 28 141/50 (80) 100 09/05/19 04:00 Mechanical Ventilator Mechanical Ventilator Mechanical Ventilator Mechanical Ventilator 09/05/19 04:00 71 09/05/19 03:47 84 18 Mechanical Ventilator 40 40 09/05/19 03:00 90 32 139/52 (81) 100 09/05/19 02:00 91 28 138/42 (74) 100 09/05/19 01:07 92 21 40 09/05/19 01:00 92 23 140/39 (72) 99 09/05/19 00:00 98.0 87 29 145/70 (95) 100 09/05/19 00:00 Mechanical Ventilator Mechanical Ventilator Mechanical Ventilator Mechanical Ventilator 09/05/19 00:00 40 09/05/19 00:00 80 09/04/19 23:37 155/70 09/04/19 23:20 78 18 100 Mechanical Ventilator 40 09/04/19 23:05 77 18 Mechanical Ventilator 40 40 09/04/19 23:00 78 20 146/58 (87) 100 09/04/19 22:00 77 19 140/61 (87) 100 09/04/19 21:00 76 18 132/65 (87) 100 09/04/19 20:57 75 18 40 09/04/19 20:00 98.6 77 18 138/60 (86) 100 09/04/19 20:00 79 09/04/19 20:00 Mechanical Ventilator Mechanical Ventilator Mechanical Ventilator Mechanical Ventilator 09/04/19 19:26 75 18 100 Mechanical Ventilator 40 09/04/19 19:11 74 18 Mechanical Ventilator 40 40 09/04/19 19:00 74 18 140/66 (90) 100 09/04/19 18:00 98.5 76 18 137/59 (85) 100 09/04/19 17:02 81 19 40 09/04/19 17:00 81 21 136/54 (81) 100 09/04/19 16:13 81 09/04/19 16:00 81 18 129/62 (84) 100 09/04/19 16:00 40 09/04/19 16:00 Mechanical Ventilator Mechanical Ventilator Mechanical Ventilator Mechanical Ventilator 09/04/19 15:00 76 17 125/58 (80) 100 09/04/19 14:31 80 18 40 09/04/19 14:00 76 19 126/59 (81) 100 09/04/19 13:00 83 19 127/61 (83) 100 09/04/19 12:43 86 20 40 09/04/19 12:00 40 09/04/19 12:00 98.3 82 23 125/59 (81) 100 09/04/19 12:00 Mechanical Ventilator Mechanical Ventilator Mechanical Ventilator Mechanical Ventilator 09/04/19 11:11 77 20 100 Mechanical Ventilator 40 81 18 40 09/04/19 11:06 81 09/04/19 11:00 79 19 131/59 (83) 100 09/04/19 10:00 77 20 133/67 (89) 100 09/04/19 09:02 71 127/59 09/04/19 09:00 72 19 129/63 (85) 100 09/04/19 08:55 69 18 40 09/04/19 08:00 Mechanical Ventilator Mechanical Ventilator Mechanical Ventilator Mechanical Ventilator 09/04/19 08:00 40 09/04/19 08:00 98.2 70 18 118/56 (76) 100 09/04/19 07:57 70 09/04/19 07:21 81 18 100 Mechanical Ventilator 40 71 18 40 Intake and Output 09/04/19 09/05/19 19:00 07:00 Intake Total 560 ml 410 ml Output Total 1072 ml 120 ml Balance -512 ml 290 ml Intake Free Water 100 ml 60 ml IV Total 100 ml Tube Feeding 280 ml 350 ml Other 80 ml Output Urine Total 72 ml 120 ml Hemodialysis UF 1000 ml # Bowel Movements 1 3 Laboratory Tests 09/05/19 04:45: White Blood Count 5.0, Red Blood Count 3.25L, Hemoglobin 9.7L, Hematocrit 28.8L , Mean Corpuscular Volume 89, Mean Corpuscular Hemoglobin 29.9, Mean Corpuscular Hemoglobin Concent 33.7, Red Cell Distribution Width 14.0, Platelet Count 258, Mean Platelet Volume 4.6L, Neutrophils (%) (Auto) 69.6, Lymphocytes ( %) (Auto) 23.3, Monocytes (%) (Auto) 4.9, Eosinophils (%) (Auto) 1.5, Basophils (%) (Auto) 0.7, Sodium Level 144, Potassium Level 3.4L, Chloride Level 105, Carbon Dioxide Level 29, Anion Gap 10, Blood Urea Nitrogen 27H, Creatinine 2.6H , Estimat Glomerular Filtration Rate 17.7, Glucose Level 126H, Calcium Level 8.8 , Total Bilirubin 0.4, Aspartate Amino Transf (AST/SGOT) 23, Alanine Aminotransferase (ALT/SGPT) 13, Alkaline Phosphatase 135H, Total Protein 5.8L, Albumin 2.1L, Globulin 3.7, Albumin/Globulin Ratio 0.6L Height (Feet): 5 Height (Inches): 4.00 Weight (Pounds): 110 General Appearance: other - on vent Neck: normal alignment Cardiovascular: normal rate Respiratory/Chest: decreased breath sounds Abdomen: normal bowel sounds Objective Current Medications Medications (Trade) Dose Ordered Sig/Javier Route PRN Reason Start Time Stop Time Status Last Admin Dose Admin Acetaminophen (Tylenol) 650 mg Q4H PRN GT Mild Pain/Temp > 100.5 09/03/19 07:00 10/03/19 06:59 09/03/19 08:36 Acetylcysteine (Mucomyst) 100 mg Q4HRT N 08/31/19 19:00 11/29/19 18:59 09/05/19 03:48 Albuterol/ Ipratropium (Albuterol/ Ipratropium) 3 ml Q4HRT N 08/31/19 19:00 09/05/19 18:59 09/05/19 03:48 Amlodipine Besylate (Norvasc) 5 mg BID NG 08/23/19 01:45 09/22/19 01:44 09/04/19 09:02 Atropine Sulfate (Atropine) 1 mg Q4H PRN IVP Per rx protocol 08/13/19 08:30 09/12/19 08:29 Chlorhexidine Gluconate (Nae-Hex 2%) 1 applic DAILY@2000 TOPIC 08/15/19 20:00 09/14/19 19:59 09/04/19 20:15 Dextrose (Dextrose 50%) 25 ml Q30M PRN IV Hypoglycemia 09/02/19 06:15 12/01/19 06:14 09/04/19 12:11 Dextrose (Dextrose 50%) 50 ml Q30M PRN IV Hypoglycemia 09/02/19 06:15 12/01/19 06:14 Diphenhydramine HCl (Benadryl) 50 mg Q4H PRN IVP Itching 08/09/19 14:30 09/08/19 14:29 09/05/19 06:12 Epoetin Thomas (Epoetin Thomas(ESRD on dialysis)) 4,000 unit THU-THU-THU SUBQ 08/12/19 21:00 09/11/19 20:59 09/02/19 21:10 Hydralazine HCl (Apresoline) 10 mg Q4H PRN IV For High Blood Pressure 08/18/19 12:44 09/17/19 12:43 09/01/19 20:27 Hydralazine HCl (Apresoline) 25 mg Q6HR NG 08/23/19 06:00 09/22/19 05:59 09/05/19 06:02 Hydromorphone HCl (Dilaudid) 0.5 mg Q4H PRN IVP Pain Scale (6-10) 09/03/19 07:00 09/10/19 06:59 09/05/19 03:04 Lansoprazole (Prevacid) 30 mg BID GT 08/19/19 09:00 09/18/19 08:59 09/04/19 17:53 Levothyroxine Sodium (Synthroid) 50 mcg DAILY@0630 ORAL 08/25/19 06:30 09/24/19 06:29 09/05/19 06:03 Metoclopramide HCl (Reglan) 5 mg Q8H PRN IVP Nausea & Vomiting 08/09/19 12:39 09/08/19 12:38 Antonio Jacome MD Sep 05, 2019 07:17
--- NOTE | 2019-09-05 07:29 | Hematology/Onc Progress Note ---
Assessment/Plan Assessment/Plan # Thrombocytopenia - potential causes multifactorial, evaluate liver and viral etiologies to begin, in this case due to sepsis with septic shock also with cirrhosis and liver disease --> Hep panel and HIV ordered -> neg --> US abd to evaluate for cirrhosis and hsm ordered --> reviewed --> Peripheral smear ordered to evaluate for blasts /schistocytes --> abx and other meds have been reviewed --> ok for ppx if plt >50k w/ either heparin or lovenox --> Transfuse if Plt < 20k and fever, or if Plt < 10k without fever --> okay for permacath change once plt better--> for 08/14 --> plt trend: 43-->83-->237k-->292-->341-->315-->388 -->444-->530 # Anemia of chronic disease due to underlying chronic medical issues, multifactorial v Gi bleed --> Anemia workup has been ordered, rule out gi bleed --> No evidence of hemolysis is noted, peripheral smear has been reviewed. --> Hgb goal >7. Transfuse prn. --> Epogen has been started --> HOLD OFF IRON ferritin is >1000 --> Medications have been reviewed --> low threshold for gi evaluation in case has occult + --> hgb 9-->6.7-->9.2 -->10.5-->10.6 -->10.7-->10-->10.5-->9.8-->10.4-->9.5--> 3.6-->9.6-->9.7 --> blood tx: 08/11, 08/31 --> CT Chest pendig r/o hemothorax --> does show Confirmation of a large left hemothorax. Complete atelectasis of the left lower lobe and partial left upper lobe atelectasis demonstrated. Mild rightward shift of the heart and mediastinum. # Sepsis with shock. --> abx as per id, recs noted --> pressors as needed # Healthcare-associated pneumonia. --> recs reviewed --> abx: jung/micafungin-->jung --> 08/24 us chest: moderate left pleural effusion # Severe protein-calorie malnutrition. --> nutritional support # End-stage renal disease --> had as renal hd --> with permacath # History of hypertension. --> per cards, now with Bradycardia. # resp failure s/p vent/trach # HypoThyroid # Ngt feedings # Dvt ppx scd's The timing of this note does not necessarily reflect the time of the patient was seen. Greatly appreciate consultation. Subjective Cardiovascular: Denies: no symptoms, chest pain, edema, irregular heart rate, lightheadedness, palpitations, syncope, other Respiratory: Denies: no symptoms, cough, shortness of breath, SOB with excertion, SOB at rest, sputum, wheezing, other Gastrointestinal/Abdominal: Denies: no symptoms, abdomen distended, abdominal pain, black stools, tarry stools, blood in stool, constipated, diarrhea, difficulty swallowing, nausea, poor appetite, poor fluid intake, rectal bleeding , vomiting, other Genitourinary: Denies: no symptoms, burning, discharge, frequency, flank pain, hematuria, incontinence, pain, urgency, other Neurologic/Psychiatric: Denies: no symptoms, anxiety, depressed, emotional problems, headache, numbness, paresthesia, pre-existing deficit, seizure, tingling, tremors, weakness, other Endocrine: Denies: no symptoms, excessive sweating, flushing, intolerance to cold, intolerance to heat, increased hunger, increased thirst, increased urine, unexplained weight gain, unexplained weight loss, other Hematologic/Lymphatic: Denies: no symptoms, anemia, easy bleeding, easy bruising, adenopathy, other Allergies: Coded Allergies: VANCOMYCIN (Unverified Allergy, Unknown, 08/02/19) Subjective 08/11: no bleeding or chills, labs reviewed, no major bleeding, plt less than 50k 08/12: icu, s/p blood, hgb improved to 9.2, 08/14: icu, pending consent for thora and permacath, labs reviewed 08/15: new permacath placed, no bleeding, for hd, plt much improved, started lovenox sq 08/16: ett to be adjusted, bp on high end, micafungin started, possible bronch 08/17: weaning as per pulm, no events otherwise, labs noted 08/18: no events no bleeding, remains confused on vent, for hd 08/20: icu, failed to wean, labs reviewed, jung 08/21: resting in bed, no overnight events, labs reviewed 08/22: awake, confused, restraints, no overnight events 08/23: no events, no bleeding, on ppi bid 08/24: icu, failed to wean, labs reviewed 08/25: no overnight events, us chest, restraints, afebrile 08/26 difficult in weaning, nad, seen by surg, pulm labs noted 08/27 awake on restraints, thoracentesis for am, labs reviewed 08/29 no bleeding, no night sweats, no major changes, on ppi bid 08/30 no major events, remains on vent, no bleeding, dw pcp 08/31 hgb dropped to 3.6, has been transfused with prbc, in icu, dw Rn, ct chest pend 09/01 no major events, no bleeding, labs noted, hgb remains low, hgb 9.6 09/03 lethargic, left chest tube dry/intact, off abx, vent 09/04 remains on a vent, synthroid, labs reviewed Objective Objective Current Medications Medications (Trade) Dose Ordered Sig/Javier Route PRN Reason Start Time Stop Time Status Last Admin Dose Admin Acetaminophen (Tylenol) 650 mg Q4H PRN GT Mild Pain/Temp > 100.5 09/03/19 07:00 10/03/19 06:59 09/03/19 08:36 Acetylcysteine (Mucomyst) 100 mg Q4HRT [facility] 08/31/19 19:00 11/29/19 18:59 09/05/19 03:48 Albuterol/ Ipratropium (Albuterol/ Ipratropium) 3 ml Q4HRT [facility] 08/31/19 19:00 09/05/19 18:59 09/05/19 03:48 Amlodipine Besylate (Norvasc) 5 mg BID NG 08/23/19 01:45 09/22/19 01:44 09/04/19 09:02 Atropine Sulfate (Atropine) 1 mg Q4H PRN IVP Per rx protocol 08/13/19 08:30 09/12/19 08:29 Chlorhexidine Gluconate (Nae-Hex 2%) 1 applic DAILY@1999 TOPIC 08/15/19 20:00 09/14/19:59 09/04/19 20:15 Dextrose (Dextrose 50%) 25 ml Q30M PRN IV Hypoglycemia 09/02/19 06:15 12/01/19 06:14 09/04/19 12:11 Dextrose (Dextrose 50%) 50 ml Q30M PRN IV Hypoglycemia 09/02/19 06:15 12/01/19 06:14 Diphenhydramine HCl (Benadryl) 50 mg Q4H PRN IVP Itching 08/09/19 14:30 09/08/19 14:29 09/05/19 06:12 Epoetin Thomas (Epoetin Thomas(ESRD on dialysis)) 4,000 unit THU- SUBQ 08/12/19 21:00 09/11/19 20:59 09/02/19 21:10 Hydralazine HCl (Apresoline) 10 mg Q4H PRN IV For High Blood Pressure 08/18/19 12:44 09/17/19 12:43 09/01/19 20:27 Hydralazine HCl (Apresoline) 25 mg Q6HR NG 08/23/19 06:00 09/22/19 05:59 09/05/19 06:02 Hydromorphone HCl (Dilaudid) 0.5 mg Q4H PRN IVP Pain Scale (6-10) 09/03/19 07:00 09/10/19 06:59 09/05/19 03:04 Lansoprazole (Prevacid) 30 mg BID GT 08/19/19 09:00 09/18/19 08:59 09/04/19 17:53 Levothyroxine Sodium (Synthroid) 50 mcg DAILY@0630 ORAL 08/25/19 06:30 09/24/19 06:29 09/05/19 06:03 Metoclopramide HCl (Reglan) 5 mg Q8H PRN IVP Nausea & Vomiting 08/09/19 12:39 09/08/19 12:38 Last 24 Hour Vital Signs Date Time Temp Pulse Resp B/P (MAP) Pulse Ox O2 Delivery O2 Flow Rate FiO2 09/05/19 06:30 80 18 09/05/19 06:02 138/57 09/05/19 06:00 78 28 137/63 (87) 100 09/05/19 05:15 72 18 40 09/05/19 05:00 84 28 138/57 (84) 100 09/05/19 05:00 40 09/05/19 04:02 82 18 100 Mechanical Ventilator 40 09/05/19 04:00 98.4 85 28 141/50 (80) 100 09/05/19 04:00 Mechanical Ventilator Mechanical Ventilator Mechanical Ventilator Mechanical Ventilator 09/05/19 04:00 71 09/05/19 03:47 84 18 Mechanical Ventilator 40 40 09/05/19 03:00 90 32 139/52 (81) 100 09/05/19 02:00 91 28 138/42 (74) 100 09/05/19 01:07 92 21 40 09/05/19 01:00 92 23 140/39 (72) 99 09/05/19 00:00 98.0 87 29 145/70 (95) 100 09/05/19 00:00 Mechanical Ventilator Mechanical Ventilator Mechanical Ventilator Mechanical Ventilator 09/05/19 00:00 40 09/05/19 00:00 80 09/04/19 23:37 155/70 09/04/19 23:20 78 18 100 Mechanical Ventilator 40 09/04/19 23:05 77 18 Mechanical Ventilator 40 40 09/04/19 23:00 78 20 146/58 (87) 100 09/04/19 22:00 77 19 140/61 (87) 100 09/04/19 21:00 76 18 132/65 (87) 100 09/04/19 20:57 75 18 40 09/04/19 20:00 98.6 77 18 138/60 (86) 100 09/04/19 20:00 79 09/04/19 20:00 Mechanical Ventilator Mechanical Ventilator Mechanical Ventilator Mechanical Ventilator 09/04/19 19:26 75 18 100 Mechanical Ventilator 40 09/04/19 19:11 74 18 Mechanical Ventilator 40 40 09/04/19 19:00 74 18 140/66 (90) 100 09/04/19 18:00 98.5 76 18 137/59 (85) 100 09/04/19 17:02 81 19 40 09/04/19 17:00 81 21 136/54 (81) 100 09/04/19 16:13 81 09/04/19 16:00 81 18 129/62 (84) 100 09/04/19 16:00 40 09/04/19 16:00 Mechanical Ventilator Mechanical Ventilator Mechanical Ventilator Mechanical Ventilator 09/04/19 15:00 76 17 125/58 (80) 100 09/04/19 14:31 80 18 40 09/04/19 14:00 76 19 126/59 (81) 100 09/04/19 13:00 83 19 127/61 (83) 100 09/04/19 12:43 86 20 40 09/04/19 12:00 40 09/04/19 12:00 98.3 82 23 125/59 (81) 100 09/04/19 12:00 Mechanical Ventilator Mechanical Ventilator Mechanical Ventilator Mechanical Ventilator 09/04/19 11:11 77 20 100 Mechanical Ventilator 40 81 18 40 09/04/19 11:06 81 09/04/19 11:00 79 19 131/59 (83) 100 09/04/19 10:00 77 20 133/67 (89) 100 09/04/19 09:02 71 127/59 09/04/19 09:00 72 19 129/63 (85) 100 09/04/19 08:55 69 18 40 09/04/19 08:00 Mechanical Ventilator Mechanical Ventilator Mechanical Ventilator Mechanical Ventilator 09/04/19 08:00 40 09/04/19 08:00 98.2 70 18 118/56 (76) 100 09/04/19 07:57 70 09/04/19 07:21 81 18 100 Mechanical Ventilator 40 71 18 40 09/04/19 07:00 73 18 135/63 (87) 100 09/04/19 06:30 79 18 09/04/19 06:00 69 18 118/53 (74) 100 09/04/19 05:39 117/56 09/04/19 05:12 72 18 40 09/04/19 05:00 74 18 117/56 (76) 100 09/04/19 04:00 69 09/04/19 04:00 Mechanical Ventilator Mechanical Ventilator Mechanical Ventilator Mechanical Ventilator 09/04/19 04:00 98.3 73 18 124/103 (110) 100 09/04/19 04:00 40 09/04/19 03:17 74 18 100 Mechanical Ventilator 40 09/04/19 03:02 77 18 Mechanical Ventilator 40 40 09/04/19 03:00 77 18 113/56 (75) 100 09/04/19 02:00 79 19 137/67 (90) 100 09/04/19 02:00 79 09/04/19 01:16 84 18 40 09/04/19 01:00 77 21 129/56 (80) 100 09/04/19 00:03 129/59 09/04/19 00:00 45 09/04/19 00:00 82 09/04/19 00:00 Mechanical Ventilator Mechanical Ventilator Mechanical Ventilator Mechanical Ventilator 09/04/19 00:00 98.4 87 22 131/63 (85) 100 09/03/19 23:26 77 18 100 Mechanical Ventilator 40 09/03/19 23:11 79 18 Mechanical Ventilator 40 40 09/03/19 23:00 81 23 129/59 (82) 100 09/03/19 22:00 83 23 129/59 (82) 100 09/03/19 21:16 77 18 40 09/03/19 21:00 83 23 133/61 (85) 100 09/03/19 20:00 Mechanical Ventilator Mechanical Ventilator Mechanical Ventilator Mechanical Ventilator 09/03/19 20:00 85 09/03/19 20:00 45 09/03/19 20:00 86 23 112/74 (87) 100 09/03/19 19:24 81 18 100 Mechanical Ventilator 40 09/03/19 19:08 82 18 Mechanical Ventilator 40 40 09/03/19 19:00 98.1 84 21 131/99 (110) 100 09/03/19 18:08 80 140/67 09/03/19 18:08 140/67 09/03/19 18:00 84 23 140/67 (91) 100 09/03/19 17:28 82 18 40 09/03/19 17:00 81 22 136/66 (89) 100 09/03/19 16:00 Mechanical Ventilator Mechanical Ventilator Mechanical Ventilator Mechanical Ventilator 09/03/19 16:00 97.4 86 24 123/94 (104) 100 09/03/19 16:00 45 09/03/19 16:00 88 09/03/19 15:00 83 20 140/66 (90) 100 09/03/19 14:57 77 18 100 Mechanical Ventilator 40 78 18 40 09/03/19 14:00 82 21 128/61 (83) 100 09/03/19 13:16 83 18 40 09/03/19 13:00 86 22 125/96 (106) 100 09/03/19 12:06 132/118 09/03/19 12:00 45 09/03/19 12:00 76 09/03/19 12:00 Mechanical Ventilator Mechanical Ventilator Mechanical Ventilator Mechanical Ventilator 09/03/19 12:00 98.3 87 19 132/118 (123) 100 09/03/19 11:21 73 18 100 Mechanical Ventilator 40 75 18 40 09/03/19 11:00 87 23 137/68 (91) 100 09/03/19 10:00 86 25 136/53 (80) 100 09/03/19 09:18 90 18 40 09/03/19 09:00 89 16 136/83 (100) 100 09/03/19 08:35 92 149/86 09/03/19 08:00 45 09/03/19 08:00 Mechanical Ventilator Mechanical Ventilator Mechanical Ventilator Mechanical Ventilator 09/03/19 08:00 97.3 94 15 148/112 (124) 100 09/03/19 08:00 89 09/03/19 07:40 96 Intake and Output 09/04/19 09/05/19 19:00 07:00 Intake Total 560 ml 410 ml Output Total 1072 ml 120 ml Balance -512 ml 290 ml Intake Free Water 100 ml 60 ml IV Total 100 ml Tube Feeding 280 ml 350 ml Other 80 ml Output Urine Total 72 ml 120 ml Hemodialysis UF 1000 ml # Bowel Movements 1 3 Labs Test 09/03/19 04:20 09/04/19 05:30 09/05/19 04:45 White Blood Count 6.4 K/UL (4.8-10.8) 5.9 K/UL (4.8-10.8) 5.0 K/UL (4.8-10.8) Red Blood Count 3.55 M/UL (4.20-5.40) 3.36 M/UL (4.20-5.40) 3.25 M/UL (4.20-5.40) Hemoglobin 10.8 G/DL (12.0-16.0) 9.9 G/DL (12.0-16.0) 9.7 G/DL (12.0-16.0) Hematocrit 31.2 % (37.0-47.0) 29.5 % (37.0-47.0) 28.8 % (37.0-47.0) Mean Corpuscular Volume 88 FL (80-99) 88 FL (80-99) 89 FL (80-99) Mean Corpuscular Hemoglobin 30.3 PG (27.0-31.0) 29.6 PG (27.0-31.0) 29.9 PG (27.0-31.0) Mean Corpuscular Hemoglobin Concent 34.5 G/DL (32.0-36.0) 33.7 G/DL (32.0-36.0) 33.7 G/DL (32.0-36.0) Red Cell Distribution Width 14.7 % (11.6-14.8) 14.4 % (11.6-14.8) 14.0 % (11.6-14.8) Platelet Count 289 K/UL (150-450) 284 K/UL (150-450) 258 K/UL (150-450) Mean Platelet Volume 4.9 FL (6.5-10.1) 4.8 FL (6.5-10.1) 4.6 FL (6.5-10.1) Neutrophils (%) (Auto) 79.7 % (45.0-75.0) 65.4 % (45.0-75.0) 69.6 % (45.0-75.0) Lymphocytes (%) (Auto) 15.3 % (20.0-45.0) 25.1 % (20.0-45.0) 23.3 % (20.0-45.0) Monocytes (%) (Auto) 4.1 % (1.0-10.0) 6.3 % (1.0-10.0) 4.9 % (1.0-10.0) Eosinophils (%) (Auto) 0.7 % (0.0-3.0) 2.9 % (0.0-3.0) 1.5 % (0.0-3.0) Basophils (%) (Auto) 0.3 % (0.0-2.0) 0.4 % (0.0-2.0) 0.7 % (0.0-2.0) Sodium Level 143 MMOL/L (136-145) 139 MMOL/L (136-145) 144 MMOL/L (136-145) Potassium Level 3.6 MMOL/L (3.5-5.1) 3.7 MMOL/L (3.5-5.1) 3.4 MMOL/L (3.5-5.1) Chloride Level 104 MMOL/L (98-107) 102 MMOL/L (98-107) 105 MMOL/L (98-107) Carbon Dioxide Level 27 MMOL/L (21-32) 26 MMOL/L (21-32) 29 MMOL/L (21-32) Anion Gap 12 mmol/L (5-15) 11 mmol/L (5-15) 10 mmol/L (5-15) Blood Urea Nitrogen 45 mg/dL (7-18) 48 mg/dL (7-18) 27 mg/dL (7-18) Creatinine 3.5 MG/DL (0.55-1.30) 3.7 MG/DL (0.55-1.30) 2.6 MG/DL (0.55-1.30) Estimat Glomerular Filtration Rate 12.6 mL/min (>60) 11.8 mL/min (>60) 17.7 mL/min (>60) Glucose Level 123 MG/DL (74-106) 65 MG/DL (74-106) 126 MG/DL (74-106) Calcium Level 9.2 MG/DL (8.5-10.1) 9.3 MG/DL (8.5-10.1) 8.8 MG/DL (8.5-10.1) Total Bilirubin 0.6 MG/DL (0.2-1.0) 0.5 MG/DL (0.2-1.0) 0.4 MG/DL (0.2-1.0) Aspartate Amino Transf (AST/SGOT) 47 U/L (15-37) 32 U/L (15-37) 23 U/L (15-37) Alanine Aminotransferase (ALT/SGPT) 28 U/L (12-78) 18 U/L (12-78) 13 U/L (12-78) Alkaline Phosphatase 117 U/L (46-116) 105 U/L (46-116) 135 U/L (46-116) Total Protein 6.8 G/DL (6.4-8.2) 6.1 G/DL (6.4-8.2) 5.8 G/DL (6.4-8.2) Albumin 2.2 G/DL (3.4-5.0) 1.9 G/DL (3.4-5.0) 2.1 G/DL (3.4-5.0) Globulin 4.6 g/dL 4.2 g/dL 3.7 g/dL Albumin/Globulin Ratio 0.5 (1.0-2.7) 0.5 (1.0-2.7) 0.6 (1.0-2.7) Uric Acid 6.9 MG/DL (2.6-7.2) Phosphorus Level 4.5 MG/DL (2.5-4.9) Magnesium Level 2.5 MG/DL (1.8-2.4) C-Reactive Protein, Quantitative 18.2 mg/dL (0.00-0.90) Pro-B-Type Natriuretic Peptide > 33917 pg/mL (0-125) Height (Feet): 5 Height (Inches): 4.00 Weight (Pounds): 110 Objective gen: nad pulm: on trach+ / vent, decreased breath sounds left, chest tube+ cv: rrr, no gmr abd: sfot, nt, nd ++ gt ext: no cce Gio Rob MD Sep 05, 2019 07:29
--- NOTE | 2019-09-05 08:53 | Critical Care Progress Note ---
Assessment/Plan Assessment/Plan respiratory failure hemoptysis resolved hypoxemia chronic renal failure toxic met encephalopathy severe protein calorie malnutrition cachexia left lung whiteout/collapse, improved with intubation s/p intubation anemia ? blood loss pulmonary edema with elevated BNP + pleural effusion ? hemothorax s/p CT placement PLAN fluid cultures noted hold anticoags for now CT management care noted and reviewed HD as needed reviewed care failed weaning past few days- 3rd spacing noted recommend trach keep negative and monitor osmotic pressures ID and other specialist reviewed close follow up discussed elevated head and monitor ROM watch fluid status nutrition as able isolation as needed off load as able and monitor skin exam ROM as able ICU care and management critical at present requires ICU management and close follow up care feeds as able and monitor residuals medications/laboratory data/nursing notes/ICU care reviewed in detail note reviewed and edited care discussed with RN and RT ICU time spent >40 minutes coordinating care Critical Care - Subjective Interval Events: care noted in ICU 72 hour stay reviewed and discussed on vent surgery noted ROS Limited/Unobtainable: Yes Condition: critical EKG Rhythm: Sinus Rhythm Residuals: minimal Tube Feeding Tolerated: yes I&O: Intake and Output 09/04/19 09/05/19 19:00 07:00 Intake Total 560 ml 410 ml Output Total 1072 ml 195 ml Balance -512 ml 215 ml Intake Free Water 100 ml 60 ml IV Total 100 ml Tube Feeding 280 ml 350 ml Other 80 ml Output Urine Total 72 ml 165 ml Chest Tube Drainage Total 30 ml Hemodialysis UF 1000 ml # Bowel Movements 1 3 Critical Care - Objective CXR: reviewed CT in place ET-Tube: 7.0 ET Position: 19 Last 24 Hour Vital Signs Date Time Temp Pulse Resp B/P (MAP) Pulse Ox O2 Delivery O2 Flow Rate FiO2 09/05/19 08:00 97.9 73 21 140/58 (85) 100 09/05/19 08:00 40 09/05/19 07:47 98 09/05/19 07:11 73 18 40 09/05/19 07:00 76 20 142/87 (105) 100 09/05/19 06:30 80 18 09/05/19 06:02 138/57 09/05/19 06:00 78 28 137/63 (87) 100 09/05/19 05:15 72 18 40 09/05/19 05:00 84 28 138/57 (84) 100 09/05/19 05:00 40 09/05/19 04:02 82 18 100 Mechanical Ventilator 40 09/05/19 04:00 98.4 85 28 141/50 (80) 100 09/05/19 04:00 Mechanical Ventilator Mechanical Ventilator Mechanical Ventilator Mechanical Ventilator 09/05/19 04:00 71 09/05/19 03:47 84 18 Mechanical Ventilator 40 40 09/05/19 03:00 90 32 139/52 (81) 100 09/05/19 02:00 91 28 138/42 (74) 100 09/05/19 01:07 92 21 40 09/05/19 01:00 92 23 140/39 (72) 99 09/05/19 00:00 98.0 87 29 145/70 (95) 100 09/05/19 00:00 Mechanical Ventilator Mechanical Ventilator Mechanical Ventilator Mechanical Ventilator 09/05/19 00:00 40 09/05/19 00:00 80 09/04/19 23:37 155/70 09/04/19 23:20 78 18 100 Mechanical Ventilator 40 09/04/19 23:05 77 18 Mechanical Ventilator 40 40 09/04/19 23:00 78 20 146/58 (87) 100 09/04/19 22:00 77 19 140/61 (87) 100 09/04/19 21:00 76 18 132/65 (87) 100 09/04/19 20:57 75 18 40 09/04/19 20:00 98.6 77 18 138/60 (86) 100 09/04/19 20:00 79 09/04/19 20:00 Mechanical Ventilator Mechanical Ventilator Mechanical Ventilator Mechanical Ventilator 09/04/19 19:26 75 18 100 Mechanical Ventilator 40 09/04/19 19:11 74 18 Mechanical Ventilator 40 40 09/04/19 19:00 74 18 140/66 (90) 100 09/04/19 18:00 98.5 76 18 137/59 (85) 100 09/04/19 17:02 81 19 40 09/04/19 17:00 81 21 136/54 (81) 100 09/04/19 16:13 81 09/04/19 16:00 81 18 129/62 (84) 100 09/04/19 16:00 40 09/04/19 16:00 Mechanical Ventilator Mechanical Ventilator Mechanical Ventilator Mechanical Ventilator 09/04/19 15:00 76 17 125/58 (80) 100 09/04/19 14:31 80 18 40 09/04/19 14:00 76 19 126/59 (81) 100 09/04/19 13:00 83 19 127/61 (83) 100 09/04/19 12:43 86 20 40 09/04/19 12:00 40 09/04/19 12:00 98.3 82 23 125/59 (81) 100 09/04/19 12:00 Mechanical Ventilator Mechanical Ventilator Mechanical Ventilator Mechanical Ventilator 09/04/19 11:11 77 20 100 Mechanical Ventilator 40 81 18 40 09/04/19 11:06 81 09/04/19 11:00 79 19 131/59 (83) 100 09/04/19 10:00 77 20 133/67 (89) 100 09/04/19 09:02 71 127/59 09/04/19 09:00 72 19 129/63 (85) 100 09/04/19 08:55 69 18 40 Labs: Labs Test 09/03/19 04:20 09/04/19 05:30 09/05/19 04:45 White Blood Count 6.4 K/UL (4.8-10.8) 5.9 K/UL (4.8-10.8) 5.0 K/UL (4.8-10.8) Red Blood Count 3.55 M/UL (4.20-5.40) 3.36 M/UL (4.20-5.40) 3.25 M/UL (4.20-5.40) Hemoglobin 10.8 G/DL (12.0-16.0) 9.9 G/DL (12.0-16.0) 9.7 G/DL (12.0-16.0) Hematocrit 31.2 % (37.0-47.0) 29.5 % (37.0-47.0) 28.8 % (37.0-47.0) Mean Corpuscular Volume 88 FL (80-99) 88 FL (80-99) 89 FL (80-99) Mean Corpuscular Hemoglobin 30.3 PG (27.0-31.0) 29.6 PG (27.0-31.0) 29.9 PG (27.0-31.0) Mean Corpuscular Hemoglobin Concent 34.5 G/DL (32.0-36.0) 33.7 G/DL (32.0-36.0) 33.7 G/DL (32.0-36.0) Red Cell Distribution Width 14.7 % (11.6-14.8) 14.4 % (11.6-14.8) 14.0 % (11.6-14.8) Platelet Count 289 K/UL (150-450) 284 K/UL (150-450) 258 K/UL (150-450) Mean Platelet Volume 4.9 FL (6.5-10.1) 4.8 FL (6.5-10.1) 4.6 FL (6.5-10.1) Neutrophils (%) (Auto) 79.7 % (45.0-75.0) 65.4 % (45.0-75.0) 69.6 % (45.0-75.0) Lymphocytes (%) (Auto) 15.3 % (20.0-45.0) 25.1 % (20.0-45.0) 23.3 % (20.0-45.0) Monocytes (%) (Auto) 4.1 % (1.0-10.0) 6.3 % (1.0-10.0) 4.9 % (1.0-10.0) Eosinophils (%) (Auto) 0.7 % (0.0-3.0) 2.9 % (0.0-3.0) 1.5 % (0.0-3.0) Basophils (%) (Auto) 0.3 % (0.0-2.0) 0.4 % (0.0-2.0) 0.7 % (0.0-2.0) Sodium Level 143 MMOL/L (136-145) 139 MMOL/L (136-145) 144 MMOL/L (136-145) Potassium Level 3.6 MMOL/L (3.5-5.1) 3.7 MMOL/L (3.5-5.1) 3.4 MMOL/L (3.5-5.1) Chloride Level 104 MMOL/L (98-107) 102 MMOL/L (98-107) 105 MMOL/L (98-107) Carbon Dioxide Level 27 MMOL/L (21-32) 26 MMOL/L (21-32) 29 MMOL/L (21-32) Anion Gap 12 mmol/L (5-15) 11 mmol/L (5-15) 10 mmol/L (5-15) Blood Urea Nitrogen 45 mg/dL (7-18) 48 mg/dL (7-18) 27 mg/dL (7-18) Creatinine 3.5 MG/DL (0.55-1.30) 3.7 MG/DL (0.55-1.30) 2.6 MG/DL (0.55-1.30) Estimat Glomerular Filtration Rate 12.6 mL/min (>60) 11.8 mL/min (>60) 17.7 mL/min (>60) Glucose Level 123 MG/DL (74-106) 65 MG/DL (74-106) 126 MG/DL (74-106) Calcium Level 9.2 MG/DL (8.5-10.1) 9.3 MG/DL (8.5-10.1) 8.8 MG/DL (8.5-10.1) Total Bilirubin 0.6 MG/DL (0.2-1.0) 0.5 MG/DL (0.2-1.0) 0.4 MG/DL (0.2-1.0) Aspartate Amino Transf (AST/SGOT) 47 U/L (15-37) 32 U/L (15-37) 23 U/L (15-37) Alanine Aminotransferase (ALT/SGPT) 28 U/L (12-78) 18 U/L (12-78) 13 U/L (12-78) Alkaline Phosphatase 117 U/L (46-116) 105 U/L (46-116) 135 U/L (46-116) Total Protein 6.8 G/DL (6.4-8.2) 6.1 G/DL (6.4-8.2) 5.8 G/DL (6.4-8.2) Albumin 2.2 G/DL (3.4-5.0) 1.9 G/DL (3.4-5.0) 2.1 G/DL (3.4-5.0) Globulin 4.6 g/dL 4.2 g/dL 3.7 g/dL Albumin/Globulin Ratio 0.5 (1.0-2.7) 0.5 (1.0-2.7) 0.6 (1.0-2.7) Uric Acid 6.9 MG/DL (2.6-7.2) Phosphorus Level 4.5 MG/DL (2.5-4.9) Magnesium Level 2.5 MG/DL (1.8-2.4) C-Reactive Protein, Quantitative 18.2 mg/dL (0.00-0.90) Pro-B-Type Natriuretic Peptide > 08846 pg/mL (0-125) Thyroid Stimulating Hormone (TSH) 6.983 uiU/mL (0.358-3.740) Free Thyroxine 1.14 NG/DL (0.76-1.46) Objective: WDWN NAD intubated reduced breath sounds with some rhonchi; CT in place [id number] without MRG NABS nontender no HSM no CCE contractures feeding tube in place no distention reduced LOC and weak nonfocal cachectic reviewed and edited Accucheck: 118 Malcolm Cruz MD Sep 05, 2019 08:53
--- NOTE | 2019-09-05 11:02 | Infectious Diseases Prog Note ---
Assessment/Plan Assessment/Plan antibiotics : none A 1. jarad albicans fungemia s/p rx 2. right shoulder septic arthritis with staph aureus s/p rx 3. renal failure 4. thrombocytopenia resolved 7. diabetes mellitus 8. hypertension 9. respiratory failure P 1. observe off antibiotics Subjective ROS Limited/Unobtainable: Yes Allergies: Coded Allergies: VANCOMYCIN (Unverified Allergy, Unknown, 08/02/19) Objective Vital Signs Last 24 Hour Vital Signs Date Time Temp Pulse Resp B/P (MAP) Pulse Ox O2 Delivery O2 Flow Rate FiO2 09/05/19 10:00 81 18 125/90 (102) 100 09/05/19 09:20 70 18 40 09/05/19 09:09 72 139/60 09/05/19 09:00 71 19 139/60 (86) 100 09/05/19 08:00 97.9 73 21 140/58 (85) 100 09/05/19 08:00 Mechanical Ventilator Mechanical Ventilator Mechanical Ventilator Mechanical Ventilator 09/05/19 08:00 75 09/05/19 08:00 40 09/05/19 07:47 98 09/05/19 07:11 73 18 40 09/05/19 07:00 76 20 142/87 (105) 100 09/05/19 06:30 80 18 09/05/19 06:02 138/57 09/05/19 06:00 78 28 137/63 (87) 100 09/05/19 05:15 72 18 40 09/05/19 05:00 84 28 138/57 (84) 100 09/05/19 05:00 40 09/05/19 04:02 82 18 100 Mechanical Ventilator 40 09/05/19 04:00 98.4 85 28 141/50 (80) 100 09/05/19 04:00 Mechanical Ventilator Mechanical Ventilator Mechanical Ventilator Mechanical Ventilator 09/05/19 04:00 71 09/05/19 03:47 84 18 Mechanical Ventilator 40 40 09/05/19 03:00 90 32 139/52 (81) 100 09/05/19 02:00 91 28 138/42 (74) 100 09/05/19 01:07 92 21 40 09/05/19 01:00 92 23 140/39 (72) 99 09/05/19 00:00 98.0 87 29 145/70 (95) 100 09/05/19 00:00 Mechanical Ventilator Mechanical Ventilator Mechanical Ventilator Mechanical Ventilator 09/05/19 00:00 40 09/05/19 00:00 80 09/04/19 23:37 155/70 09/04/19 23:20 78 18 100 Mechanical Ventilator 40 09/04/19 23:05 77 18 Mechanical Ventilator 40 40 09/04/19 23:00 78 20 146/58 (87) 100 09/04/19 22:00 77 19 140/61 (87) 100 09/04/19 21:00 76 18 132/65 (87) 100 09/04/19 20:57 75 18 40 09/04/19 20:00 98.6 77 18 138/60 (86) 100 09/04/19 20:00 79 09/04/19 20:00 Mechanical Ventilator Mechanical Ventilator Mechanical Ventilator Mechanical Ventilator 09/04/19 19:26 75 18 100 Mechanical Ventilator 40 09/04/19 19:11 74 18 Mechanical Ventilator 40 40 09/04/19 19:00 74 18 140/66 (90) 100 09/04/19 18:00 98.5 76 18 137/59 (85) 100 09/04/19 17:02 81 19 40 09/04/19 17:00 81 21 136/54 (81) 100 09/04/19 16:13 81 09/04/19 16:00 81 18 129/62 (84) 100 09/04/19 16:00 40 09/04/19 16:00 Mechanical Ventilator Mechanical Ventilator Mechanical Ventilator Mechanical Ventilator 09/04/19 15:00 76 17 125/58 (80) 100 09/04/19 14:31 80 18 40 09/04/19 14:00 76 19 126/59 (81) 100 09/04/19 13:00 83 19 127/61 (83) 100 09/04/19 12:43 86 20 40 09/04/19 12:00 40 09/04/19 12:00 98.3 82 23 125/59 (81) 100 09/04/19 12:00 Mechanical Ventilator Mechanical Ventilator Mechanical Ventilator Mechanical Ventilator 09/04/19 11:11 77 20 100 Mechanical Ventilator 40 81 18 40 09/04/19 11:06 81 Height (Feet): 5 Height (Inches): 4.00 Weight (Pounds): 108 HEENT: other Respiratory/Chest: lungs clear, other - left CT Cardiovascular: normal rate, regular rhythm, no gallop/murmur Abdomen: soft, non tender, other - GT Extremities: no edema, other - right groin catheter Laboratory Tests Test 09/05/19 04:45 White Blood Count 5.0 K/UL (4.8-10.8) Red Blood Count 3.25 M/UL (4.20-5.40) L Hemoglobin 9.7 G/DL (12.0-16.0) L Hematocrit 28.8 % (37.0-47.0) L Mean Corpuscular Volume 89 FL (80-99) Mean Corpuscular Hemoglobin 29.9 PG (27.0-31.0) Mean Corpuscular Hemoglobin Concent 33.7 G/DL (32.0-36.0) Red Cell Distribution Width 14.0 % (11.6-14.8) Platelet Count 258 K/UL (150-450) Mean Platelet Volume 4.6 FL (6.5-10.1) L Neutrophils (%) (Auto) 69.6 % (45.0-75.0) Lymphocytes (%) (Auto) 23.3 % (20.0-45.0) Monocytes (%) (Auto) 4.9 % (1.0-10.0) Eosinophils (%) (Auto) 1.5 % (0.0-3.0) Basophils (%) (Auto) 0.7 % (0.0-2.0) Sodium Level 144 MMOL/L (136-145) Potassium Level 3.4 MMOL/L (3.5-5.1) L Chloride Level 105 MMOL/L (98-107) Carbon Dioxide Level 29 MMOL/L (21-32) Anion Gap 10 mmol/L (5-15) Blood Urea Nitrogen 27 mg/dL (7-18) H Creatinine 2.6 MG/DL (0.55-1.30) H Estimat Glomerular Filtration Rate 17.7 mL/min (>60) Glucose Level 126 MG/DL (74-106) H Calcium Level 8.8 MG/DL (8.5-10.1) Total Bilirubin 0.4 MG/DL (0.2-1.0) Aspartate Amino Transf (AST/SGOT) 23 U/L (15-37) Alanine Aminotransferase (ALT/SGPT) 13 U/L (12-78) Alkaline Phosphatase 135 U/L (46-116) H Total Protein 5.8 G/DL (6.4-8.2) L Albumin 2.1 G/DL (3.4-5.0) L Globulin 3.7 g/dL Albumin/Globulin Ratio 0.6 (1.0-2.7) L Thyroid Stimulating Hormone (TSH) 6.983 uiU/mL (0.358-3.740) Free Thyroxine 1.14 NG/DL (0.76-1.46) Current Medications Medications (Trade) Dose Ordered Sig/Javier Route PRN Reason Start Time Stop Time Status Last Admin Dose Admin Acetaminophen (Tylenol) 650 mg Q4H PRN GT Mild Pain/Temp > 100.5 09/03/19 07:00 10/03/19 06:59 09/03/19 08:36 Acetylcysteine (Mucomyst) 100 mg Q4HRT N 08/31/19 19:00 11/29/19 18:59 09/05/19 03:48 Albuterol/ Ipratropium (Albuterol/ Ipratropium) 3 ml Q4HRT N 08/31/19 19:00 09/05/19 18:59 09/05/19 03:48 Amlodipine Besylate (Norvasc) 5 mg BID NG 08/23/19 01:45 09/22/19 01:44 09/05/19 09:09 Atropine Sulfate (Atropine) 1 mg Q4H PRN IVP Per rx protocol 08/13/19 08:30 09/12/19 08:29 Chlorhexidine Gluconate (Nae-Hex 2%) 1 applic DAILY@1999 TOPIC 08/15/19 20:00 09/14/19 19:59 09/04/19 20:15 Dextrose (Dextrose 50%) 25 ml Q30M PRN IV Hypoglycemia 09/02/19 06:15 12/01/19 06:14 09/04/19 12:11 Dextrose (Dextrose 50%) 50 ml Q30M PRN IV Hypoglycemia 09/02/19 06:15 12/01/19 06:14 Diphenhydramine HCl (Benadryl) 50 mg Q4H PRN IVP Itching 08/09/19 14:30 09/08/19 14:29 09/05/19 06:12 Epoetin Thomas (Epoetin Thomas(ESRD on dialysis)) 4,000 unit THU-THU-THU SUBQ 08/12/19 21:00 09/11/19 20:59 09/02/19 21:10 Hydralazine HCl (Apresoline) 10 mg Q4H PRN IV For High Blood Pressure 08/18/19 12:44 09/17/19 12:43 09/01/19 20:27 Hydralazine HCl (Apresoline) 25 mg Q6HR NG 08/23/19 06:00 09/22/19 05:59 09/05/19 06:02 Hydromorphone HCl (Dilaudid) 0.5 mg Q4H PRN IVP Pain Scale (6-10) 09/03/19 07:00 09/10/19 06:59 09/05/19 03:04 Lansoprazole (Prevacid) 30 mg BID GT 08/19/19 09:00 09/18/19 08:59 09/05/19 09:10 Levothyroxine Sodium (Synthroid) 50 mcg DAILY@0630 ORAL 08/25/19 06:30 09/24/19 06:29 09/05/19 06:03 Metoclopramide HCl (Reglan) 5 mg Q8H PRN IVP Nausea & Vomiting 08/09/19 12:39 09/08/19 12:38 Melissa Solares MD Sep 05, 2019 11:02
--- NOTE | 2019-09-05 11:50 | Nephrology Progress Note ---
Assessment/Plan Problem List: (1) ESRD (end stage renal disease) on dialysis (2) Malnutrition (3) Anemia in CKD (chronic kidney disease) (4) Hypotension (5) Thrombocytopenia (6) Sepsis Assessment: klebsiella in blood Assessment -Early sepsis with shock. -Healthcare-associated pneumonia. -Severe protein-calorie malnutrition. -Thrombocytopenia. - End-stage renal disease. - History of hypertension. - Bradycardia. - HypoThyroid Plan Continues to have chest tube on the left side was put in on September 01 Patient transfused 3 units of packed RBCs for low hemoglobin Been stable today Remains full code Last dialysis September 03 Due to her overall medical condition I favor DNR and comfort care Blood pressure fluctuating, will start hydralazine via NG tube for blood pressure Magnesium and potassium supplement intravenously as needed Patient underwent PEG placement August 16 patient remains intubated on ventilator Discussed with RN Aim to wean from ventilator or consider tracheostomy Permacath was removed on August 12 Dialysis 08/11 Transfusion as needed Patient had hematemesis meds IV as possible Surveillance blood cultures tomorrow Plan to put the permacath back in on Thursday if cultures are negative keep BP and BS in check Inflammatory markers per orders Subjective ROS Limited/Unobtainable: Yes Objective Objective Last 24 Hour Vital Signs Date Time Temp Pulse Resp B/P (MAP) Pulse Ox O2 Delivery O2 Flow Rate FiO2 09/05/19 11:11 85 18 100 Mechanical Ventilator 40 88 18 40 09/05/19 11:00 86 21 168/123 (138) 100 09/05/19 10:00 81 18 125/90 (102) 100 09/05/19 09:20 70 18 40 09/05/19 09:09 72 139/60 09/05/19 09:00 71 19 139/60 (86) 100 09/05/19 08:00 97.9 73 21 140/58 (85) 100 09/05/19 08:00 Mechanical Ventilator Mechanical Ventilator Mechanical Ventilator Mechanical Ventilator 09/05/19 08:00 75 09/05/19 08:00 40 09/05/19 07:47 98 09/05/19 07:11 73 18 40 09/05/19 07:00 76 20 142/87 (105) 100 09/05/19 06:30 80 18 09/05/19 06:02 138/57 09/05/19 06:00 78 28 137/63 (87) 100 09/05/19 05:15 72 18 40 09/05/19 05:00 84 28 138/57 (84) 100 09/05/19 05:00 40 09/05/19 04:02 82 18 100 Mechanical Ventilator 40 09/05/19 04:00 98.4 85 28 141/50 (80) 100 09/05/19 04:00 Mechanical Ventilator Mechanical Ventilator Mechanical Ventilator Mechanical Ventilator 09/05/19 04:00 71 09/05/19 03:47 84 18 Mechanical Ventilator 40 40 09/05/19 03:00 90 32 139/52 (81) 100 09/05/19 02:00 91 28 138/42 (74) 100 09/05/19 01:07 92 21 40 09/05/19 01:00 92 23 140/39 (72) 99 09/05/19 00:00 98.0 87 29 145/70 (95) 100 09/05/19 00:00 Mechanical Ventilator Mechanical Ventilator Mechanical Ventilator Mechanical Ventilator 09/05/19 00:00 40 09/05/19 00:00 80 09/04/19 23:37 155/70 09/04/19 23:20 78 18 100 Mechanical Ventilator 40 09/04/19 23:05 77 18 Mechanical Ventilator 40 40 09/04/19 23:00 78 20 146/58 (87) 100 09/04/19 22:00 77 19 140/61 (87) 100 09/04/19 21:00 76 18 132/65 (87) 100 09/04/19 20:57 75 18 40 09/04/19 20:00 98.6 77 18 138/60 (86) 100 09/04/19 20:00 79 09/04/19 20:00 Mechanical Ventilator Mechanical Ventilator Mechanical Ventilator Mechanical Ventilator 09/04/19 19:26 75 18 100 Mechanical Ventilator 40 09/04/19 19:11 74 18 Mechanical Ventilator 40 40 09/04/19 19:00 74 18 140/66 (90) 100 09/04/19 18:00 98.5 76 18 137/59 (85) 100 09/04/19 17:02 81 19 40 09/04/19 17:00 81 21 136/54 (81) 100 09/04/19 16:13 81 09/04/19 16:00 81 18 129/62 (84) 100 09/04/19 16:00 40 09/04/19 16:00 Mechanical Ventilator Mechanical Ventilator Mechanical Ventilator Mechanical Ventilator 09/04/19 15:00 76 17 125/58 (80) 100 09/04/19 14:31 80 18 40 09/04/19 14:00 76 19 126/59 (81) 100 09/04/19 13:00 83 19 127/61 (83) 100 09/04/19 12:43 86 20 40 09/04/19 12:00 40 09/04/19 12:00 98.3 82 23 125/59 (81) 100 09/04/19 12:00 Mechanical Ventilator Mechanical Ventilator Mechanical Ventilator Mechanical Ventilator Intake and Output 09/04/19 09/05/19 19:00 07:00 Intake Total 560 ml 410 ml Output Total 1072 ml 195 ml Balance -512 ml 215 ml Intake Free Water 100 ml 60 ml IV Total 100 ml Tube Feeding 280 ml 350 ml Other 80 ml Output Urine Total 72 ml 165 ml Chest Tube Drainage Total 30 ml Hemodialysis UF 1000 ml # Bowel Movements 1 3 Laboratory Tests 09/05/19 04:45: White Blood Count 5.0, Red Blood Count 3.25L, Hemoglobin 9.7L, Hematocrit 28.8L , Mean Corpuscular Volume 89, Mean Corpuscular Hemoglobin 29.9, Mean Corpuscular Hemoglobin Concent 33.7, Red Cell Distribution Width 14.0, Platelet Count 258, Mean Platelet Volume 4.6L, Neutrophils (%) (Auto) 69.6, Lymphocytes ( %) (Auto) 23.3, Monocytes (%) (Auto) 4.9, Eosinophils (%) (Auto) 1.5, Basophils (%) (Auto) 0.7, Sodium Level 144, Potassium Level 3.4L, Chloride Level 105, Carbon Dioxide Level 29, Anion Gap 10, Blood Urea Nitrogen 27H, Creatinine 2.6H , Estimat Glomerular Filtration Rate 17.7, Glucose Level 126H, Calcium Level 8.8 , Total Bilirubin 0.4, Aspartate Amino Transf (AST/SGOT) 23, Alanine Aminotransferase (ALT/SGPT) 13, Alkaline Phosphatase 135H, Total Protein 5.8L, Albumin 2.1L, Globulin 3.7, Albumin/Globulin Ratio 0.6L, Thyroid Stimulating Hormone (TSH) 6.983H, Free Thyroxine 1.14 Height (Feet): 5 Height (Inches): 4.00 Weight (Pounds): 108 General Appearance: no apparent distress EENT: other - Remains intubated and on ventilator Cardiovascular: tachycardia Respiratory/Chest: decreased breath sounds Abdomen: distended Objective no change William Blackwood MD Sep 05, 2019 11:50
--- NOTE | 2019-09-05 15:52 | Surgery Progress Note ---
Surgery Progress Note Subjective Procedure Performed left chest tube insertion Additional Comments no acute events dressings saturated tube okay labs reviewed imaging noted cont with chest tube to suction will plan trach soon Objective Last 24 Hour Vital Signs Date Time Temp Pulse Resp B/P (MAP) Pulse Ox O2 Delivery O2 Flow Rate FiO2 09/05/19 15:27 84 10 100 Mechanical Ventilator 40 85 20 40 09/05/19 14:00 92 24 150/61 (90) 100 09/05/19 13:13 93 21 40 09/05/19 13:05 88 26 108/80 (89) 100 09/05/19 13:00 82 19 176/146 (156) 100 09/05/19 12:44 164/89 09/05/19 12:00 Mechanical Ventilator Mechanical Ventilator Mechanical Ventilator Mechanical Ventilator 09/05/19 12:00 86 09/05/19 12:00 40 09/05/19 12:00 98.9 90 24 139/116 (124) 97 09/05/19 11:11 85 18 100 Mechanical Ventilator 40 88 18 40 09/05/19 11:00 86 21 168/123 (138) 100 09/05/19 10:00 81 18 125/90 (102) 100 09/05/19 09:20 70 18 40 09/05/19 09:09 72 139/60 09/05/19 09:00 71 19 139/60 (86) 100 09/05/19 08:00 97.9 73 21 140/58 (85) 100 09/05/19 08:00 Mechanical Ventilator Mechanical Ventilator Mechanical Ventilator Mechanical Ventilator 09/05/19 08:00 75 09/05/19 08:00 40 09/05/19 07:47 98 09/05/19 07:11 73 18 40 09/05/19 07:00 76 20 142/87 (105) 100 09/05/19 06:30 80 18 09/05/19 06:02 138/57 09/05/19 06:00 78 28 137/63 (87) 100 09/05/19 05:15 72 18 40 09/05/19 05:00 84 28 138/57 (84) 100 09/05/19 05:00 40 09/05/19 04:02 82 18 100 Mechanical Ventilator 40 09/05/19 04:00 98.4 85 28 141/50 (80) 100 09/05/19 04:00 Mechanical Ventilator Mechanical Ventilator Mechanical Ventilator Mechanical Ventilator 09/05/19 04:00 71 09/05/19 03:47 84 18 Mechanical Ventilator 40 40 09/05/19 03:00 90 32 139/52 (81) 100 09/05/19 02:00 91 28 138/42 (74) 100 09/05/19 01:07 92 21 40 09/05/19 01:00 92 23 140/39 (72) 99 09/05/19 00:00 98.0 87 29 145/70 (95) 100 09/05/19 00:00 Mechanical Ventilator Mechanical Ventilator Mechanical Ventilator Mechanical Ventilator 09/05/19 00:00 40 09/05/19 00:00 80 09/04/19 23:37 155/70 09/04/19 23:20 78 18 100 Mechanical Ventilator 40 09/04/19 23:05 77 18 Mechanical Ventilator 40 40 09/04/19 23:00 78 20 146/58 (87) 100 09/04/19 22:00 77 19 140/61 (87) 100 09/04/19 21:00 76 18 132/65 (87) 100 09/04/19 20:57 75 18 40 09/04/19 20:00 98.6 77 18 138/60 (86) 100 09/04/19 20:00 79 09/04/19 20:00 Mechanical Ventilator Mechanical Ventilator Mechanical Ventilator Mechanical Ventilator 09/04/19 19:26 75 18 100 Mechanical Ventilator 40 09/04/19 19:11 74 18 Mechanical Ventilator 40 40 09/04/19 19:00 74 18 140/66 (90) 100 09/04/19 18:00 98.5 76 18 137/59 (85) 100 09/04/19 17:02 81 19 40 09/04/19 17:00 81 21 136/54 (81) 100 09/04/19 16:13 81 09/04/19 16:00 81 18 129/62 (84) 100 09/04/19 16:00 40 09/04/19 16:00 Mechanical Ventilator Mechanical Ventilator Mechanical Ventilator Mechanical Ventilator I&O Intake and Output 09/04/19 09/05/19 19:00 07:00 Intake Total 560 ml 410 ml Output Total 1072 ml 195 ml Balance -512 ml 215 ml Intake Free Water 100 ml 60 ml IV Total 100 ml Tube Feeding 280 ml 350 ml Other 80 ml Output Urine Total 72 ml 165 ml Chest Tube Drainage Total 30 ml Hemodialysis UF 1000 ml # Bowel Movements 1 3 Dressing: other Wound: other Drains: other Cardiovascular: RSR Respiratory: decreased breath sounds, other Abdomen: soft, non-tender, present bowel sounds Extremities: no tenderness, no cyanosis Laboratory Tests Test 09/05/19 04:45 White Blood Count 5.0 K/UL (4.8-10.8) Red Blood Count 3.25 M/UL (4.20-5.40) L Hemoglobin 9.7 G/DL (12.0-16.0) L Hematocrit 28.8 % (37.0-47.0) L Mean Corpuscular Volume 89 FL (80-99) Mean Corpuscular Hemoglobin 29.9 PG (27.0-31.0) Mean Corpuscular Hemoglobin Concent 33.7 G/DL (32.0-36.0) Red Cell Distribution Width 14.0 % (11.6-14.8) Platelet Count 258 K/UL (150-450) Mean Platelet Volume 4.6 FL (6.5-10.1) L Neutrophils (%) (Auto) 69.6 % (45.0-75.0) Lymphocytes (%) (Auto) 23.3 % (20.0-45.0) Monocytes (%) (Auto) 4.9 % (1.0-10.0) Eosinophils (%) (Auto) 1.5 % (0.0-3.0) Basophils (%) (Auto) 0.7 % (0.0-2.0) Sodium Level 144 MMOL/L (136-145) Potassium Level 3.4 MMOL/L (3.5-5.1) L Chloride Level 105 MMOL/L (98-107) Carbon Dioxide Level 29 MMOL/L (21-32) Anion Gap 10 mmol/L (5-15) Blood Urea Nitrogen 27 mg/dL (7-18) H Creatinine 2.6 MG/DL (0.55-1.30) H Estimat Glomerular Filtration Rate 17.7 mL/min (>60) Glucose Level 126 MG/DL (74-106) H Calcium Level 8.8 MG/DL (8.5-10.1) Total Bilirubin 0.4 MG/DL (0.2-1.0) Aspartate Amino Transf (AST/SGOT) 23 U/L (15-37) Alanine Aminotransferase (ALT/SGPT) 13 U/L (12-78) Alkaline Phosphatase 135 U/L (46-116) H Total Protein 5.8 G/DL (6.4-8.2) L Albumin 2.1 G/DL (3.4-5.0) L Globulin 3.7 g/dL Albumin/Globulin Ratio 0.6 (1.0-2.7) L Thyroid Stimulating Hormone (TSH) 6.983 uiU/mL (0.358-3.740) Free Thyroxine 1.14 NG/DL (0.76-1.46) Assessment Post-op Diagnosis same Plan Problems: (1) Malnutrition Assessment & Plan: DAILY ESTIMATED NEEDS: Needs based on ESRD+ HD, underweight, wound/ 39.5kg 35-40 kcals/kg 9530-7108 total kcals 1.25-1.8 g protein/kg 49-71 g total protein 20-22 mL/kg 790-869 total fluid mLs NUTRITION DIAGNOSIS: * Increased kcal and protein needs r/t underweight status, HD needs, wuond healing as evidenced by pt is underweight per guidelines, ESRD, on HD, admitted non-blanching erythema wounds @ BL heels and sacrum * Swallowing difficulty R/T dysphagia as evidenced by [employer] recommends temporary nonoral feeding at this time, s/p NGT insertion, on NGT feeding-> now s/p self removal, NPO. CURRENT TF:NPO PO DIET RECOMMENDATIONS: WHEN SAFE FOR ORAL DIET -> renal/ texture per [employer] ENTERAL NUTRITION RECOMMENDATIONS: W/ GI access: Nepro @ 35ml/hr x 22 hrs to provide 770ml, 1386kcal, 62g prot, 560ml free water * W/ GI access, resume TF on Nepro * Initiate Nepro @ 15ml/hr x 6 hrs, advance 10ml q 4-6 hrs as tolerated to goal rate. * Hold 1 hour before and after Synthroid med * HOB over 30 degrees/ water flush per MD. ADDITIONAL RECOMMENDATIONS: 1) Calibrated bed scale wt for accurate CBW -> daily wt monitoring Per HD record: dry wt on 07/30=39.5kg (87lbs) 2) Wound care: (W/ GI access) add Nephorivte x 1 + Balta BID 3) Monitor NPO status: without GI access at this time, s/p pulling out NGT 4) Monitor for hypoglycemia while NPO 5) Monitor for continuity of HD (2) Septic arthritis Assessment & Plan: Pt presented on admission with generalized scaly rash . pt noted to be restless and scratching at skin. Bleeding from oral mucosa noted. Joint deformity noted to R shoulder. Surgical incision approximated with 11 sutures. Erythema but no exudate,or elevation in skin temp at site of incision. Historical incision R hip that is tunneled.Small amt seropurulent exudate noted. Periwound is erythematous,but no elevation in skin temp noted. No odor noted. Non-blanching erythema noted to sacrum. Perianal area is erythematous and excoriated. L heel is boggy with non-blanching erythema. R heel is soft with non-blanching erythema. No evidence of skin breakdown to all other bony prominences. Tx.plan: Cover R shoulder with Drsg and change daily and prn. Cleanse R hip wound with Saline. Apply Therahoney.Apply Cavilon Skin Barrier periwound. Cover with Optifoam drsg. Change every 3 days and prn. Apply Moisture Barrier Paste to perianal area and buttocks. Cover Sacrum with Optifoam drsg. Change every 3 days and prn. Apply Cavilon Skin Barrier to both heels. Cover each heel with Optifoam drsg. Change every 7 days and prn. APM/ELVIA Mattress overlay. Reposition at least every 2hours or as tolerated. Off-load heels with pillow. HD cath necessary HD as renal likely will need intubation (3) Wound, open, hip or thigh with complication Assessment & Plan: slow healing will need nutritional optimization difficult ng tube peg when stable sutures removed from right shoulder comfortable wean vent may need trach (4) Abscess of right hip (5) possible septic arthritis (6) Renal failure (ARF), acute on chronic Assessment & Plan: cont HD will need tunneled cath placement okay to use fem line for now but will need change soon. line monitored and clean dressings going well (7) Pneumonia Assessment & Plan: intubated on vent support not tolerating weaning may need trach hemothorax likely after thoracentesis Chest CT noted Left chest tube placed With plan for trach chest tube can be considered but overall prognosis is very poor Camilo James Sep 05, 2019 15:52
[2019-09-05] MEDS ORDERED: Versed 50mg/D5W 100ml 100 ML IV PRN (18:15)
[2019-09-05] MEDS: Dyna-Hex 2% Top Sol 2oz TOPIC SCH (20:40)
[2019-09-05] MEDS: Epoetin Alfa-EPBX(ESRD on dialysis)4000 units/ml vial SUBQ SCH (20:40)
--- NOTE | 2019-09-05 21:45 | General Progress Note ---
Assessment/Plan Problem List: (1) Failure to thrive (0-17) ICD Codes: R62.51 - Failure to thrive (0-17) SNOMED: 207807889 (2) Hypertensive kidney disease ICD Codes: I12.9 - Hypertensive chronic kidney disease with stage 1 through stage 4 chronic kidney disease, or unspecified chronic kidney disease SNOMED: 98618651 (3) Pneumonia ICD Codes: J18.9 - Pneumonia, unspecified organism SNOMED: 295697733 Qualifiers: Qualified Codes: J18.9 - Pneumonia, unspecified organism (4) ESRD (end stage renal disease) ICD Codes: N18.6 - End stage renal disease SNOMED: 30497273 (5) Septic arthritis ICD Codes: M00.9 - Pyogenic arthritis, unspecified SNOMED: 522024073 (6) Thrombocytopenia ICD Codes: D69.6 - Thrombocytopenia, unspecified SNOMED: 967349683 (7) Hypotension ICD Codes: I95.9 - Hypotension, unspecified SNOMED: 53948054 Qualifiers: Qualified Codes: I95.3 - Hypotension of hemodialysis (8) Malnutrition ICD Codes: E46 - Unspecified protein-calorie malnutrition SNOMED: 06103416 Status: stable, not improved, unchanged, deteriorating Assessment/Plan: cont resp care chest pt/suctioning resp rx monitor cbc transfuse as needed cont weaning- try simv monitor plts iv PPI iv abx HD bp rx Subjective ROS Limited/Unobtainable: No Constitutional: Reports: malaise, weakness HEENT: Reports: no symptoms Cardiovascular: Reports: no symptoms Respiratory: Reports: shortness of breath, sputum Gastrointestinal/Abdominal: Reports: difficulty swallowing Genitourinary: Reports: no symptoms Neurologic/Psychiatric: Reports: pre-existing deficit Endocrine: Reports: no symptoms Hematologic/Lymphatic: Reports: anemia Allergies: Coded Allergies: VANCOMYCIN (Unverified Allergy, Unknown, 08/02/19) All Systems: reviewed and negative except above Subjective no events, w/o complaints.stable s/p chest tube placement. tolerated well. alert. remains on the vent. minimal bloody output from ct. some serosanguinous drainage from ct site Objective Last 24 Hour Vital Signs Date Time Temp Pulse Resp B/P (MAP) Pulse Ox O2 Delivery O2 Flow Rate FiO2 09/05/19 19:07 89 23 40 09/05/19 19:00 94 30 134/84 (101) 100 09/05/19 18:18 88 147/70 09/05/19 18:18 147/70 09/05/19 18:00 90 25 147/70 (95) 100 09/05/19 17:13 81 19 40 09/05/19 17:00 79 27 136/62 (86) 100 09/05/19 16:00 Mechanical Ventilator Mechanical Ventilator Mechanical Ventilator Mechanical Ventilator 09/05/19 16:00 40 09/05/19 16:00 97.8 82 27 137/61 (86) 100 09/05/19 16:00 81 09/05/19 15:27 84 10 100 Mechanical Ventilator 40 85 20 40 09/05/19 15:00 92 25 106/53 (70) 100 09/05/19 14:00 92 24 150/61 (90) 100 09/05/19 13:13 93 21 40 09/05/19 13:05 88 26 108/80 (89) 100 09/05/19 13:00 82 19 176/146 (156) 100 09/05/19 12:44 164/89 09/05/19 12:00 Mechanical Ventilator Mechanical Ventilator Mechanical Ventilator Mechanical Ventilator 09/05/19 12:00 86 09/05/19 12:00 40 09/05/19 12:00 98.9 90 24 139/116 (124) 97 09/05/19 11:11 85 18 100 Mechanical Ventilator 40 88 18 40 09/05/19 11:00 86 21 168/123 (138) 100 09/05/19 10:00 81 18 125/90 (102) 100 09/05/19 09:20 70 18 40 09/05/19 09:09 72 139/60 09/05/19 09:00 71 19 139/60 (86) 100 09/05/19 08:00 97.9 73 21 140/58 (85) 100 09/05/19 08:00 Mechanical Ventilator Mechanical Ventilator Mechanical Ventilator Mechanical Ventilator 09/05/19 08:00 75 09/05/19 08:00 40 09/05/19 07:47 98 09/05/19 07:11 73 18 40 09/05/19 07:00 76 20 142/87 (105) 100 09/05/19 06:30 80 18 09/05/19 06:02 138/57 09/05/19 06:00 78 28 137/63 (87) 100 09/05/19 05:15 72 18 40 09/05/19 05:00 84 28 138/57 (84) 100 09/05/19 05:00 40 09/05/19 04:02 82 18 100 Mechanical Ventilator 40 09/05/19 04:00 98.4 85 28 141/50 (80) 100 09/05/19 04:00 Mechanical Ventilator Mechanical Ventilator Mechanical Ventilator Mechanical Ventilator 09/05/19 04:00 71 09/05/19 03:47 84 18 Mechanical Ventilator 40 40 09/05/19 03:00 90 32 139/52 (81) 100 09/05/19 02:00 91 28 138/42 (74) 100 09/05/19 01:07 92 21 40 09/05/19 01:00 92 23 140/39 (72) 99 09/05/19 00:00 98.0 87 29 145/70 (95) 100 09/05/19 00:00 Mechanical Ventilator Mechanical Ventilator Mechanical Ventilator Mechanical Ventilator 09/05/19 00:00 40 09/05/19 00:00 80 09/04/19 23:37 155/70 09/04/19 23:20 78 18 100 Mechanical Ventilator 40 09/04/19 23:05 77 18 Mechanical Ventilator 40 40 09/04/19 23:00 78 20 146/58 (87) 100 09/04/19 22:00 77 19 140/61 (87) 100 Intake and Output 09/04/19 09/05/19 19:00 07:00 Intake Total 560 ml 410 ml Output Total 1072 ml 195 ml Balance -512 ml 215 ml Intake Free Water 100 ml 60 ml IV Total 100 ml Tube Feeding 280 ml 350 ml Other 80 ml Output Urine Total 72 ml 165 ml Chest Tube Drainage Total 30 ml Hemodialysis UF 1000 ml # Bowel Movements 1 3 Laboratory Tests 09/05/19 04:45: White Blood Count 5.0, Red Blood Count 3.25L, Hemoglobin 9.7L, Hematocrit 28.8L , Mean Corpuscular Volume 89, Mean Corpuscular Hemoglobin 29.9, Mean Corpuscular Hemoglobin Concent 33.7, Red Cell Distribution Width 14.0, Platelet Count 258, Mean Platelet Volume 4.6L, Neutrophils (%) (Auto) 69.6, Lymphocytes ( %) (Auto) 23.3, Monocytes (%) (Auto) 4.9, Eosinophils (%) (Auto) 1.5, Basophils (%) (Auto) 0.7, Sodium Level 144, Potassium Level 3.4L, Chloride Level 105, Carbon Dioxide Level 29, Anion Gap 10, Blood Urea Nitrogen 27H, Creatinine 2.6H , Estimat Glomerular Filtration Rate 17.7, Glucose Level 126H, Calcium Level 8.8 , Total Bilirubin 0.4, Aspartate Amino Transf (AST/SGOT) 23, Alanine Aminotransferase (ALT/SGPT) 13, Alkaline Phosphatase 135H, Total Protein 5.8L, Albumin 2.1L, Globulin 3.7, Albumin/Globulin Ratio 0.6L, Thyroid Stimulating Hormone (TSH) 6.983H, Free Thyroxine 1.14 Height (Feet): 5 Height (Inches): 4.00 Weight (Pounds): 108 Objective General Appearance: WD/WN, awake/moaning. orally intubated Neck: supple Cardiovascular: normal rate Respiratory/Chest: rhonchi - bilaterally Abdomen: normal bowel sounds, non tender, soft, no organomegaly Edema: no edema noted Arm (L), no edema noted Arm (R), no edema noted Leg (L), no edema noted Leg (R), no edema noted Pedal (L), no edema noted Pedal (R), no edema noted Generalized Neurologic: disoriented, aphasia Nate Beltran MD Sep 05, 2019 21:45
--- NOTE | 2019-09-05 22:48 | General Progress Note ---
Assessment/Plan Status: stable, not improved, unchanged, deteriorating Assessment/Plan: Assessment - Severe ulcerative esophagitis - Resp failure - s/p Chest tube - thrombocytopenia --> resolved - Renal failure - aspiration risk --> s/p PEG - anemia - bradycardia - Poor prognosis Recommendations - Continue TF - water flushes - elevate HOB - monitor H&H Subjective Allergies: Coded Allergies: VANCOMYCIN (Unverified Allergy, Unknown, 08/02/19) Subjective Above noted No events overnight Objective Last 24 Hour Vital Signs Date Time Temp Pulse Resp B/P (MAP) Pulse Ox O2 Delivery O2 Flow Rate FiO2 09/05/19 22:30 89 20 40 09/05/19 22:00 88 23 145/98 (114) 100 09/05/19 21:15 91 21 40 09/05/19 21:00 89 26 100/82 (88) 100 09/05/19 20:00 98.3 89 22 130/72 (91) 100 09/05/19 20:00 Mechanical Ventilator Mechanical Ventilator Mechanical Ventilator Mechanical Ventilator 09/05/19 20:00 89 09/05/19 20:00 40 09/05/19 19:07 89 23 40 09/05/19 19:00 94 30 134/84 (101) 100 09/05/19 18:18 88 147/70 09/05/19 18:18 147/70 09/05/19 18:00 90 25 147/70 (95) 100 09/05/19 17:13 81 19 40 09/05/19 17:00 79 27 136/62 (86) 100 09/05/19 16:00 Mechanical Ventilator Mechanical Ventilator Mechanical Ventilator Mechanical Ventilator 09/05/19 16:00 40 09/05/19 16:00 97.8 82 27 137/61 (86) 100 09/05/19 16:00 81 09/05/19 15:27 84 10 100 Mechanical Ventilator 40 85 20 40 09/05/19 15:00 92 25 106/53 (70) 100 09/05/19 14:00 92 24 150/61 (90) 100 09/05/19 13:13 93 21 40 09/05/19 13:05 88 26 108/80 (89) 100 09/05/19 13:00 82 19 176/146 (156) 100 09/05/19 12:44 164/89 3/23/20 12:00 Mechanical Ventilator Mechanical Ventilator Mechanical Ventilator Mechanical Ventilator 09/05/19 12:00 86 09/05/19 12:00 40 09/05/19 12:00 98.9 90 24 139/116 (124) 97 09/05/19 11:11 85 18 100 Mechanical Ventilator 40 88 18 40 09/05/19 11:00 86 21 168/123 (138) 100 09/05/19 10:00 81 18 125/90 (102) 100 09/05/19 09:20 70 18 40 09/05/19 09:09 72 139/60 09/05/19 09:00 71 19 139/60 (86) 100 09/05/19 08:00 97.9 73 21 140/58 (85) 100 09/05/19 08:00 Mechanical Ventilator Mechanical Ventilator Mechanical Ventilator Mechanical Ventilator 09/05/19 08:00 75 09/05/19 08:00 40 09/05/19 07:47 98 09/05/19 07:11 73 18 40 09/05/19 07:00 76 20 142/87 (105) 100 09/05/19 06:30 80 18 09/05/19 06:02 138/57 09/05/19 06:00 78 28 137/63 (87) 100 09/05/19 05:15 72 18 40 09/05/19 05:00 84 28 138/57 (84) 100 09/05/19 05:00 40 09/05/19 04:02 82 18 100 Mechanical Ventilator 40 09/05/19 04:00 98.4 85 28 141/50 (80) 100 09/05/19 04:00 Mechanical Ventilator Mechanical Ventilator Mechanical Ventilator Mechanical Ventilator 09/05/19 04:00 71 09/05/19 03:47 84 18 Mechanical Ventilator 40 40 09/05/19 03:00 90 32 139/52 (81) 100 09/05/19 02:00 91 28 138/42 (74) 100 09/05/19 01:07 92 21 40 09/05/19 01:00 92 23 140/39 (72) 99 09/05/19 00:00 98.0 87 29 145/70 (95) 100 09/05/19 00:00 Mechanical Ventilator Mechanical Ventilator Mechanical Ventilator Mechanical Ventilator 09/05/19 00:00 40 09/05/19 00:00 80 3/22/20 23:37 155/70 09/04/19 23:20 78 18 100 Mechanical Ventilator 40 09/04/19 23:05 77 18 Mechanical Ventilator 40 40 09/04/19 23:00 78 20 146/58 (87) 100 Intake and Output 09/04/19 09/05/19 19:00 07:00 Intake Total 560 ml 410 ml Output Total 1072 ml 195 ml Balance -512 ml 215 ml Intake Free Water 100 ml 60 ml IV Total 100 ml Tube Feeding 280 ml 350 ml Other 80 ml Output Urine Total 72 ml 165 ml Chest Tube Drainage Total 30 ml Hemodialysis UF 1000 ml # Bowel Movements 1 3 Laboratory Tests 09/05/19 04:45: White Blood Count 5.0, Red Blood Count 3.25L, Hemoglobin 9.7L, Hematocrit 28.8L , Mean Corpuscular Volume 89, Mean Corpuscular Hemoglobin 29.9, Mean Corpuscular Hemoglobin Concent 33.7, Red Cell Distribution Width 14.0, Platelet Count 258, Mean Platelet Volume 4.6L, Neutrophils (%) (Auto) 69.6, Lymphocytes ( %) (Auto) 23.3, Monocytes (%) (Auto) 4.9, Eosinophils (%) (Auto) 1.5, Basophils (%) (Auto) 0.7, Sodium Level 144, Potassium Level 3.4L, Chloride Level 105, Carbon Dioxide Level 29, Anion Gap 10, Blood Urea Nitrogen 27H, Creatinine 2.6H , Estimat Glomerular Filtration Rate 17.7, Glucose Level 126H, Calcium Level 8.8 , Total Bilirubin 0.4, Aspartate Amino Transf (AST/SGOT) 23, Alanine Aminotransferase (ALT/SGPT) 13, Alkaline Phosphatase 135H, Total Protein 5.8L, Albumin 2.1L, Globulin 3.7, Albumin/Globulin Ratio 0.6L, Thyroid Stimulating Hormone (TSH) 6.983H, Free Thyroxine 1.14 Height (Feet): 5 Height (Inches): 4.00 Weight (Pounds): 108 Objective Debilitated frail woman NCAT (+) ETT supple scattered ronchi RR abd soft ND NT, (+) GT no edema Cristy Elizondo MD Sep 05, 2019 22:47
[2019-09-06] VITALS (24 sets, daily range): BP systolic 134–157; BP diastolic 59–95
[2019-09-06] MEDS: HydrALAZINE 25mg tab NG SCH ×5 (00:22→23:13)
--- NOTE | 2019-09-06 02:30 | Progress Note ---
DATE: 09/05/2019 CARDIOLOGY PROGRESS NOTE SUBJECTIVE: The patient remains on ventilator support. Minimal output from the chest tube. Alert. OBJECTIVE: VITAL SIGNS: Blood pressure 134/84, heart rate 94, and respiratory rate ranging from 19 to 30. LUNGS: Thin secretions. Bilateral breath sounds. Rhonchi at the right. CARDIAC: Regular rhythm and rate. Normal S1 and S2. ABDOMEN: Soft. GJ tube site intact. EXTREMITIES: No edema. LABORATORY DATA: White count 5 and hemoglobin 9.7. Sodium 144, potassium 3.4, bicarb 29, BUN 27, and creatinine 2.6. TSH is 6.9. IMPRESSION: 1. Hypothyroidism. 2. Respiratory failure. 3. Hemothorax, status post chest tube. 4. Severe protein-calorie malnutrition. 5. Paroxysmal sinus bradycardia. 6. Acute on chronic diastolic congestive heart failure. 7. End-stage renal disease. 8. Recovered shock due to sepsis. 9. Fungemia. 10. Remains critical with guarded prognosis. PLAN: 1. Thyroid replacement. 2. Weaning efforts. 3. Cardiac monitoring. 4. Hemodialysis with ultrafiltration. 5. Chest tube management. 6. May need trach. Abel Stubbs M.D. DR: ARETHA JOB#: [id number] CC:
[2019-09-06] MEDS: Albuterol/Ipratropium 3ml neb HHN SCH ×6 (03:13→22:54)
[2019-09-06 05:45] LABS: BASOPHILS % (AUTO) 0.6 % (0.0-2.0); EOSINOPHILS % (AUTO) 2.1 % (0.0-3.0); HEMATOCRIT 29.2 % (37.0-47.0); HEMOGLOBIN 9.8 G/DL (12.0-16.0); LYMPHOCYTES % (AUTO) 20.9 % (20.0-45.0); MEAN CORPUSCULAR VOLUME 89 FL (80-99); MONOCYTES % (AUTO) 5.5 % (1.0-10.0); NEUTROPHILS % (AUTO) 70.9 % (45.0-75.0); PLATELET COUNT 259 K/UL (150-450); RED BLOOD COUNT 3.28 M/UL (4.20-5.40); RED CELL DISTRIBUTION WIDTH 14.3 % (11.6-14.8)
[2019-09-06 05:56] LABS: ALANINE AMINOTRANSFERASE 14 U/L (12-78); ALBUMIN/GLOBULIN RATIO 0.5 (1.0-2.7); ALKALINE PHOSPHATASE 146 U/L (46-116); ANION GAP 9 mmol/L (5-15); ASPARTATE AMINO TRANSFERASE 20 U/L (15-37); BILIRUBIN,TOTAL 0.4 MG/DL (0.2-1.0); BLOOD UREA NITROGEN 32 mg/dL (7-18); CALCIUM 8.9 MG/DL (8.5-10.1); CARBON DIOXIDE 27 MMOL/L (21-32); CHLORIDE 106 MMOL/L (98-107); CREATININE 2.9 MG/DL (0.55-1.30); PHOSPHORUS 2.7 MG/DL (2.5-4.9); POTASSIUM 3.4 MMOL/L (3.5-5.1); SODIUM 142 MMOL/L (136-145)
--- NOTE | 2019-09-06 06:42 | General Progress Note ---
Assessment/Plan Problem List: (1) Hypothyroid ICD Codes: E03.9 - Hypothyroidism, unspecified SNOMED: 46875571 (2) ESRD (end stage renal disease) on dialysis ICD Codes: N18.6 - End stage renal disease; Z99.2 - Dependence on renal dialysis SNOMED: 431402475 (3) Hypotension ICD Codes: I95.9 - Hypotension, unspecified SNOMED: 61526700 Qualifiers: Qualified Codes: I95.3 - Hypotension of hemodialysis (4) Pneumonia ICD Codes: J18.9 - Pneumonia, unspecified organism SNOMED: 269413394 Qualifiers: Qualified Codes: J18.9 - Pneumonia, unspecified organism (5) Diabetes mellitus ICD Codes: E11.9 - Type 2 diabetes mellitus without complications SNOMED: 31442991 Status: stable, not improved, unchanged, deteriorating Assessment/Plan: TSH improved and free T4 is normal continue Levothyroxine IV 50 mcg daily continue glucose monitoring without insulin coverage hypoglycemia protocol in order Subjective ROS Limited/Unobtainable: Yes Allergies: Coded Allergies: VANCOMYCIN (Unverified Allergy, Unknown, 08/02/19) Subjective events noted interval notes reviewed on vent in ICU glucose values are stable Item Value Date Time Bedside Blood Glucose 143 mg/dl H 09/06/19 0600 Bedside Blood Glucose 160 mg/dl H 09/06/19 0000 Bedside Blood Glucose 129 mg/dl H 09/05/19 1800 Bedside Blood Glucose 119 mg/dl 09/05/19 1200 Bedside Blood Glucose 118 mg/dl 09/05/19 0600 Bedside Blood Glucose 115 mg/dl 09/05/19 0000 Objective Last 24 Hour Vital Signs Date Time Temp Pulse Resp B/P (MAP) Pulse Ox O2 Delivery O2 Flow Rate FiO2 09/06/19 06:30 82 18 09/06/19 06:04 142/63 09/06/19 06:00 82 22 142/63 (89) 100 09/06/19 05:09 83 21 40 09/06/19 05:00 80 21 142/63 (89) 100 09/06/19 04:00 79 09/06/19 04:00 Mechanical Ventilator Mechanical Ventilator Mechanical Ventilator Mechanical Ventilator 09/06/19 04:00 40 09/06/19 04:00 97.8 79 20 141/61 (87) 100 09/06/19 03:13 76 19 100 Mechanical Ventilator 40 78 18 40 09/06/19 03:00 78 23 137/64 (88) 100 09/06/19 02:00 88 23 144/59 (87) 100 09/06/19 01:25 99 20 40 09/06/19 01:00 97 18 153/71 (98) 100 09/06/19 00:22 147/97 09/06/19 00:00 Mechanical Ventilator Mechanical Ventilator Mechanical Ventilator Mechanical Ventilator 09/06/19 00:00 88 09/06/19 00:00 40 09/06/19 00:00 98.4 84 27 144/62 (89) 100 09/05/19 23:00 92 21 116/87 (97) 100 09/05/19 22:30 89 20 40 09/05/19 22:30 89 20 100 Mechanical Ventilator 40 09/05/19 22:00 88 23 145/98 (114) 100 09/05/19 21:15 91 21 40 09/05/19 21:00 89 26 100/82 (88) 100 09/05/19 20:00 98.3 89 22 130/72 (91) 100 09/05/19 20:00 Mechanical Ventilator Mechanical Ventilator Mechanical Ventilator Mechanical Ventilator 09/05/19 20:00 89 09/05/19 20:00 40 09/05/19 19:07 89 23 40 09/05/19 19:00 94 30 134/84 (101) 100 09/05/19 18:18 88 147/70 09/05/19 18:18 147/70 09/05/19 18:00 90 25 147/70 (95) 100 09/05/19 17:13 81 19 40 09/05/19 17:00 79 27 136/62 (86) 100 09/05/19 16:00 Mechanical Ventilator Mechanical Ventilator Mechanical Ventilator Mechanical Ventilator 09/05/19 16:00 40 09/05/19 16:00 97.8 82 27 137/61 (86) 100 09/05/19 16:00 81 09/05/19 15:27 84 10 100 Mechanical Ventilator 40 85 20 40 09/05/19 15:00 92 25 106/53 (70) 100 09/05/19 14:00 92 24 150/61 (90) 100 09/05/19 13:13 93 21 40 09/05/19 13:05 88 26 108/80 (89) 100 09/05/19 13:00 82 19 176/146 (156) 100 09/05/19 12:44 164/89 09/05/19 12:00 Mechanical Ventilator Mechanical Ventilator Mechanical Ventilator Mechanical Ventilator 09/05/19 12:00 86 09/05/19 12:00 40 09/05/19 12:00 98.9 90 24 139/116 (124) 97 09/05/19 11:11 85 18 100 Mechanical Ventilator 40 88 18 40 09/05/19 11:00 86 21 168/123 (138) 100 09/05/19 10:00 81 18 125/90 (102) 100 09/05/19 09:20 70 18 40 09/05/19 09:09 72 139/60 09/05/19 09:00 71 19 139/60 (86) 100 09/05/19 08:00 97.9 73 21 140/58 (85) 100 09/05/19 08:00 Mechanical Ventilator Mechanical Ventilator Mechanical Ventilator Mechanical Ventilator 09/05/19 08:00 75 09/05/19 08:00 40 09/05/19 07:47 98 09/05/19 07:11 73 18 40 09/05/19 07:00 76 20 142/87 (105) 100 Intake and Output 09/05/19 09/06/19 19:00 07:00 Intake Total 605 ml 315 ml Output Total 190 ml 75 ml Balance 415 ml 240 ml Intake Free Water 150 ml Tube Feeding 455 ml 315 ml Output Urine Total 190 ml 75 ml Chest Tube Drainage Total 0 ml # Bowel Movements 2 2 Laboratory Tests 09/06/19 03:45: White Blood Count 7.0, Red Blood Count 3.28L, Hemoglobin 9.8L, Hematocrit 29.2L , Mean Corpuscular Volume 89, Mean Corpuscular Hemoglobin 29.9, Mean Corpuscular Hemoglobin Concent 33.7, Red Cell Distribution Width 14.3, Platelet Count 259, Mean Platelet Volume 5.0L, Neutrophils (%) (Auto) 70.9, Lymphocytes ( %) (Auto) 20.9, Monocytes (%) (Auto) 5.5, Eosinophils (%) (Auto) 2.1, Basophils (%) (Auto) 0.6, Sodium Level 142, Potassium Level 3.4L, Chloride Level 106, Carbon Dioxide Level 27, Anion Gap 9, Blood Urea Nitrogen 32H, Creatinine 2.9H, Estimat Glomerular Filtration Rate 15.7, Glucose Level 145H, Calcium Level 8.9, Phosphorus Level 2.7, Magnesium Level 2.1, Total Bilirubin 0.4, Aspartate Amino Transf (AST/SGOT) 20, Alanine Aminotransferase (ALT/SGPT) 14, Alkaline Phosphatase 146H, Pro-B-Type Natriuretic Peptide > 81486G, Total Protein 6.0L, Albumin 2.0L, Globulin 4.0, Albumin/Globulin Ratio 0.5L Height (Feet): 5 Height (Inches): 4.00 Weight (Pounds): 108 General Appearance: no apparent distress Neck: normal alignment Cardiovascular: normal rate Respiratory/Chest: decreased breath sounds Abdomen: normal bowel sounds Pelvis: normal external exam Edema: no edema noted Arm (L), no edema noted Arm (R), no edema noted Leg (L), no edema noted Leg (R), no edema noted Pedal (L), no edema noted Pedal (R), no edema noted Generalized Objective Current Medications Medications (Trade) Dose Ordered Sig/Javier Route PRN Reason Start Time Stop Time Status Last Admin Dose Admin Acetaminophen (Tylenol) 650 mg Q4H PRN GT Mild Pain/Temp > 100.5 09/03/19 07:00 10/03/19 06:59 09/03/19 08:36 Acetylcysteine (Mucomyst) 100 mg Q4HRT N 08/31/19 19:00 11/29/19 18:59 09/06/19 03:13 Albuterol/ Ipratropium (Albuterol/ Ipratropium) 3 ml Q4HRT N 09/05/19 23:00 09/10/19 22:59 09/06/19 03:13 Amlodipine Besylate (Norvasc) 5 mg BID NG 08/23/19 01:45 09/22/19 01:44 09/05/19 18:18 Atropine Sulfate (Atropine) 1 mg Q4H PRN IVP Per rx protocol 08/13/19 08:30 09/12/19 08:29 Chlorhexidine Gluconate (Nae-Hex 2%) 1 applic DAILY@2000 TOPIC 08/15/19 20:00 09/14/19 19:59 09/05/19 20:40 Dextrose (Dextrose 50%) 25 ml Q30M PRN IV Hypoglycemia 09/02/19 06:15 12/01/19 06:14 09/04/19 12:11 Dextrose (Dextrose 50%) 50 ml Q30M PRN IV Hypoglycemia 09/02/19 06:15 12/01/19 06:14 Diphenhydramine HCl (Benadryl) 50 mg Q4H PRN IVP Itching 08/09/19 14:30 09/08/19 14:29 09/05/19 06:12 Epoetin Thomas (Epoetin Thomas(ESRD on dialysis)) 4,000 unit SUBQ 08/12/19 21:00 09/11/19 20:59 09/05/19 20:40 Hydralazine HCl (Apresoline) 10 mg Q4H PRN IV For High Blood Pressure 08/18/19 12:44 09/17/19 12:43 09/01/19 20:27 Hydralazine HCl (Apresoline) 25 mg Q6HR NG 08/23/19 06:00 09/22/19 05:59 09/06/19 06:04 Hydromorphone HCl (Dilaudid) 0.5 mg Q4H PRN IVP Pain Scale (6-10) 09/03/19 07:00 09/10/19 06:59 09/05/19 03:04 Lansoprazole (Prevacid) 30 mg BID GT 08/19/19 09:00 09/18/19 08:59 09/05/19 18:18 Levothyroxine Sodium (Synthroid) 50 mcg DAILY@0630 ORAL 08/25/19 06:30 09/24/19 06:29 09/06/19 06:05 Metoclopramide HCl (Reglan) 5 mg Q8H PRN IVP Nausea & Vomiting 08/09/19 12:39 09/08/19 12:38 Midazolam HCl 100 ml @ 0 mls/hr Q24H PRN IV Agitation 09/05/19 18:15 09/12/19 18:14 Antonio Jacome MD Sep 06, 2019 06:42
--- NOTE | 2019-09-06 09:59 | Critical Care Progress Note ---
Assessment/Plan Assessment/Plan respiratory failure hemoptysis resolved hypoxemia chronic renal failure toxic met encephalopathy severe protein calorie malnutrition cachexia left lung whiteout/collapse, improved with intubation s/p intubation anemia ? blood loss pulmonary edema with elevated BNP + pleural effusion ? hemothorax s/p CT placement PLAN trach soon hold anticoags for now CT management and hope to dc soon no further bleeding care noted and reviewed monitor ins and outs reviewed care unable to wean keep negative and monitor osmotic pressures ID and other specialist reviewed close follow up discussed elevated head and monitor ROM watch fluid status nutrition and monitor residuals isolation as needed off load as able and monitor skin exam ROM as able ICU care and management critical at present requires ICU management and close follow up care feeds as able and monitor residuals medications/laboratory data/nursing notes/ICU care reviewed in detail note reviewed and edited care discussed with RN and RT ICU time spent >40 minutes coordinating care Critical Care - Subjective Interval Events: care noted d/w gs CT in place for trach soon ROS Limited/Unobtainable: Yes Condition: critical EKG Rhythm: Sinus Rhythm Residuals: minimal Tube Feeding Tolerated: yes I&O: Intake and Output 09/05/19 09/06/19 19:00 07:00 Intake Total 605 ml 350 ml Output Total 190 ml 85 ml Balance 415 ml 265 ml Intake Free Water 150 ml Tube Feeding 455 ml 350 ml Output Urine Total 190 ml 75 ml Chest Tube Drainage Total 0 ml 10 ml # Bowel Movements 2 2 Critical Care - Objective ET-Tube: 7.0 ET Position: 19 Last 24 Hour Vital Signs Date Time Temp Pulse Resp B/P (MAP) Pulse Ox O2 Delivery O2 Flow Rate FiO2 09/06/19 09:00 62 120/62 09/06/19 08:03 76 18 100 Mechanical Ventilator 40 77 18 40 09/06/19 07:00 90 24 151/95 (113) 100 09/06/19 06:30 82 18 09/06/19 06:04 142/63 09/06/19 06:00 82 22 142/63 (89) 100 09/06/19 05:09 83 21 40 09/06/19 05:00 80 21 142/63 (89) 100 09/06/19 04:00 79 09/06/19 04:00 Mechanical Ventilator Mechanical Ventilator Mechanical Ventilator Mechanical Ventilator 09/06/19 04:00 40 09/06/19 04:00 97.8 79 20 141/61 (87) 100 09/06/19 03:13 76 19 100 Mechanical Ventilator 40 78 18 40 09/06/19 03:00 78 23 137/64 (88) 100 09/06/19 02:00 88 23 144/59 (87) 100 09/06/19 01:25 99 20 40 09/06/19 01:00 97 18 153/71 (98) 100 09/06/19 00:22 147/97 09/06/19 00:00 Mechanical Ventilator Mechanical Ventilator Mechanical Ventilator Mechanical Ventilator 09/06/19 00:00 88 09/06/19 00:00 40 09/06/19 00:00 98.4 84 27 144/62 (89) 100 09/05/19 23:00 92 21 116/87 (97) 100 09/05/19 22:30 89 20 40 09/05/19 22:30 89 20 100 Mechanical Ventilator 40 09/05/19 22:00 88 23 145/98 (114) 100 09/05/19 21:15 91 21 40 09/05/19 21:00 89 26 100/82 (88) 100 09/05/19 20:00 98.3 89 22 130/72 (91) 100 09/05/19 20:00 Mechanical Ventilator Mechanical Ventilator Mechanical Ventilator Mechanical Ventilator 09/05/19 20:00 89 09/05/19 20:00 40 09/05/19 19:07 89 23 40 09/05/19 19:00 94 30 134/84 (101) 100 09/05/19 18:18 88 147/70 09/05/19 18:18 147/70 09/05/19 18:00 90 25 147/70 (95) 100 09/05/19 17:13 81 19 40 09/05/19 17:00 79 27 136/62 (86) 100 09/05/19 16:00 Mechanical Ventilator Mechanical Ventilator Mechanical Ventilator Mechanical Ventilator 09/05/19 16:00 40 09/05/19 16:00 97.8 82 27 137/61 (86) 100 09/05/19 16:00 81 09/05/19 15:27 84 10 100 Mechanical Ventilator 40 85 20 40 09/05/19 15:00 92 25 106/53 (70) 100 09/05/19 14:00 92 24 150/61 (90) 100 09/05/19 13:13 93 21 40 09/05/19 13:05 88 26 108/80 (89) 100 09/05/19 13:00 82 19 176/146 (156) 100 09/05/19 12:44 164/89 09/05/19 12:00 Mechanical Ventilator Mechanical Ventilator Mechanical Ventilator Mechanical Ventilator 09/05/19 12:00 86 09/05/19 12:00 40 09/05/19 12:00 98.9 90 24 139/116 (124) 97 09/05/19 11:11 85 18 100 Mechanical Ventilator 40 88 18 40 09/05/19 11:00 86 21 168/123 (138) 100 09/05/19 10:00 81 18 125/90 (102) 100 Labs: Labs Test 09/04/19 05:30 09/05/19 04:45 09/06/19 03:45 White Blood Count 5.9 K/UL (4.8-10.8) 5.0 K/UL (4.8-10.8) 7.0 K/UL (4.8-10.8) Red Blood Count 3.36 M/UL (4.20-5.40) 3.25 M/UL (4.20-5.40) 3.28 M/UL (4.20-5.40) Hemoglobin 9.9 G/DL (12.0-16.0) 9.7 G/DL (12.0-16.0) 9.8 G/DL (12.0-16.0) Hematocrit 29.5 % (37.0-47.0) 28.8 % (37.0-47.0) 29.2 % (37.0-47.0) Mean Corpuscular Volume 88 FL (80-99) 89 FL (80-99) 89 FL (80-99) Mean Corpuscular Hemoglobin 29.6 PG (27.0-31.0) 29.9 PG (27.0-31.0) 29.9 PG (27.0-31.0) Mean Corpuscular Hemoglobin Concent 33.7 G/DL (32.0-36.0) 33.7 G/DL (32.0-36.0) 33.7 G/DL (32.0-36.0) Red Cell Distribution Width 14.4 % (11.6-14.8) 14.0 % (11.6-14.8) 14.3 % (11.6-14.8) Platelet Count 284 K/UL (150-450) 258 K/UL (150-450) 259 K/UL (150-450) Mean Platelet Volume 4.8 FL (6.5-10.1) 4.6 FL (6.5-10.1) 5.0 FL (6.5-10.1) Neutrophils (%) (Auto) 65.4 % (45.0-75.0) 69.6 % (45.0-75.0) 70.9 % (45.0-75.0) Lymphocytes (%) (Auto) 25.1 % (20.0-45.0) 23.3 % (20.0-45.0) 20.9 % (20.0-45.0) Monocytes (%) (Auto) 6.3 % (1.0-10.0) 4.9 % (1.0-10.0) 5.5 % (1.0-10.0) Eosinophils (%) (Auto) 2.9 % (0.0-3.0) 1.5 % (0.0-3.0) 2.1 % (0.0-3.0) Basophils (%) (Auto) 0.4 % (0.0-2.0) 0.7 % (0.0-2.0) 0.6 % (0.0-2.0) Sodium Level 139 MMOL/L (136-145) 144 MMOL/L (136-145) 142 MMOL/L (136-145) Potassium Level 3.7 MMOL/L (3.5-5.1) 3.4 MMOL/L (3.5-5.1) 3.4 MMOL/L (3.5-5.1) Chloride Level 102 MMOL/L (98-107) 105 MMOL/L (98-107) 106 MMOL/L (98-107) Carbon Dioxide Level 26 MMOL/L (21-32) 29 MMOL/L (21-32) 27 MMOL/L (21-32) Anion Gap 11 mmol/L (5-15) 10 mmol/L (5-15) 9 mmol/L (5-15) Blood Urea Nitrogen 48 mg/dL (7-18) 27 mg/dL (7-18) 32 mg/dL (7-18) Creatinine 3.7 MG/DL (0.55-1.30) 2.6 MG/DL (0.55-1.30) 2.9 MG/DL (0.55-1.30) Estimat Glomerular Filtration Rate 11.8 mL/min (>60) 17.7 mL/min (>60) 15.7 mL/min (>60) Glucose Level 65 MG/DL (74-106) 126 MG/DL (74-106) 145 MG/DL (74-106) Uric Acid 6.9 MG/DL (2.6-7.2) Calcium Level 9.3 MG/DL (8.5-10.1) 8.8 MG/DL (8.5-10.1) 8.9 MG/DL (8.5-10.1) Phosphorus Level 4.5 MG/DL (2.5-4.9) 2.7 MG/DL (2.5-4.9) Magnesium Level 2.5 MG/DL (1.8-2.4) 2.1 MG/DL (1.8-2.4) Total Bilirubin 0.5 MG/DL (0.2-1.0) 0.4 MG/DL (0.2-1.0) 0.4 MG/DL (0.2-1.0) Aspartate Amino Transf (AST/SGOT) 32 U/L (15-37) 23 U/L (15-37) 20 U/L (15-37) Alanine Aminotransferase (ALT/SGPT) 18 U/L (12-78) 13 U/L (12-78) 14 U/L (12-78) Alkaline Phosphatase 105 U/L (46-116) 135 U/L (46-116) 146 U/L (46-116) C-Reactive Protein, Quantitative 18.2 mg/dL (0.00-0.90) Pro-B-Type Natriuretic Peptide > 02545 pg/mL (0-125) > 37427 pg/mL (0-125) Total Protein 6.1 G/DL (6.4-8.2) 5.8 G/DL (6.4-8.2) 6.0 G/DL (6.4-8.2) Albumin 1.9 G/DL (3.4-5.0) 2.1 G/DL (3.4-5.0) 2.0 G/DL (3.4-5.0) Globulin 4.2 g/dL 3.7 g/dL 4.0 g/dL Albumin/Globulin Ratio 0.5 (1.0-2.7) 0.6 (1.0-2.7) 0.5 (1.0-2.7) Thyroid Stimulating Hormone (TSH) 6.983 uiU/mL (0.358-3.740) Free Thyroxine 1.14 NG/DL (0.76-1.46) Objective: WDWN NAD intubated reduced breath sounds with some rhonchi; CT in place [id number] without MRG NABS nontender no HSM no CCE contractures feeding tube in place no distention reduced LOC and weak nonfocal cachectic reviewed and edited Accucheck: 143 Malcolm Cruz MD Sep 06, 2019 09:59
--- NOTE | 2019-09-06 10:54 | Infectious Diseases Prog Note ---
Assessment/Plan Assessment/Plan antibiotics : none A 1. jarad albicans fungemia s/p rx 2. right shoulder septic arthritis with staph aureus s/p rx 3. renal failure 4. thrombocytopenia resolved 7. diabetes mellitus 8. hypertension 9. respiratory failure P 1. observe off antibiotics Subjective ROS Limited/Unobtainable: Yes Allergies: Coded Allergies: VANCOMYCIN (Unverified Allergy, Unknown, 08/02/19) Objective Vital Signs Last 24 Hour Vital Signs Date Time Temp Pulse Resp B/P (MAP) Pulse Ox O2 Delivery O2 Flow Rate FiO2 09/06/19 10:20 98 09/06/19 10:00 80 22 137/65 (89) 100 09/06/19 09:10 81 18 40 09/06/19 09:00 79 18 135/62 (86) 100 09/06/19 09:00 62 120/62 09/06/19 08:03 76 18 100 Mechanical Ventilator 40 77 18 40 09/06/19 08:00 40 09/06/19 08:00 79 09/06/19 08:00 100.4 76 18 134/65 (88) 100 09/06/19 07:00 90 24 151/95 (113) 100 09/06/19 06:30 82 18 09/06/19 06:04 142/63 09/06/19 06:00 82 22 142/63 (89) 100 09/06/19 05:09 83 21 40 09/06/19 05:00 80 21 142/63 (89) 100 09/06/19 04:00 79 09/06/19 04:00 Mechanical Ventilator Mechanical Ventilator Mechanical Ventilator Mechanical Ventilator 09/06/19 04:00 40 09/06/19 04:00 97.8 79 20 141/61 (87) 100 09/06/19 03:13 76 19 100 Mechanical Ventilator 40 78 18 40 09/06/19 03:00 78 23 137/64 (88) 100 09/06/19 02:00 88 23 144/59 (87) 100 09/06/19 01:25 99 20 40 09/06/19 01:00 97 18 153/71 (98) 100 09/06/19 00:22 147/97 09/06/19 00:00 Mechanical Ventilator Mechanical Ventilator Mechanical Ventilator Mechanical Ventilator 09/06/19 00:00 88 09/06/19 00:00 40 09/06/19 00:00 98.4 84 27 144/62 (89) 100 09/05/19 23:00 92 21 116/87 (97) 100 09/05/19 22:30 89 20 40 09/05/19 22:30 89 20 100 Mechanical Ventilator 40 09/05/19 22:00 88 23 145/98 (114) 100 09/05/19 21:15 91 21 40 09/05/19 21:00 89 26 100/82 (88) 100 09/05/19 20:00 98.3 89 22 130/72 (91) 100 09/05/19 20:00 Mechanical Ventilator Mechanical Ventilator Mechanical Ventilator Mechanical Ventilator 09/05/19 20:00 89 09/05/19 20:00 40 09/05/19 19:07 89 23 40 09/05/19 19:00 94 30 134/84 (101) 100 09/05/19 18:18 88 147/70 09/05/19 18:18 147/70 09/05/19 18:00 90 25 147/70 (95) 100 09/05/19 17:13 81 19 40 09/05/19 17:00 79 27 136/62 (86) 100 09/05/19 16:00 Mechanical Ventilator Mechanical Ventilator Mechanical Ventilator Mechanical Ventilator 09/05/19 16:00 40 09/05/19 16:00 97.8 82 27 137/61 (86) 100 09/05/19 16:00 81 09/05/19 15:27 84 10 100 Mechanical Ventilator 40 85 20 40 09/05/19 15:00 92 25 106/53 (70) 100 09/05/19 14:00 92 24 150/61 (90) 100 09/05/19 13:13 93 21 40 09/05/19 13:05 88 26 108/80 (89) 100 09/05/19 13:00 82 19 176/146 (156) 100 09/05/19 12:44 164/89 09/05/19 12:00 Mechanical Ventilator Mechanical Ventilator Mechanical Ventilator Mechanical Ventilator 09/05/19 12:00 86 09/05/19 12:00 40 09/05/19 12:00 98.9 90 24 139/116 (124) 97 09/05/19 11:11 85 18 100 Mechanical Ventilator 40 88 18 40 09/05/19 11:00 86 21 168/123 (138) 100 Height (Feet): 5 Height (Inches): 4.00 Weight (Pounds): 108 HEENT: other - intubated Respiratory/Chest: lungs clear Cardiovascular: normal rate, regular rhythm, no gallop/murmur Abdomen: soft, non tender, other - GT Extremities: other - + edema, right groin catheter Laboratory Tests Test 09/06/19 03:45 White Blood Count 7.0 K/UL (4.8-10.8) Red Blood Count 3.28 M/UL (4.20-5.40) L Hemoglobin 9.8 G/DL (12.0-16.0) L Hematocrit 29.2 % (37.0-47.0) L Mean Corpuscular Volume 89 FL (80-99) Mean Corpuscular Hemoglobin 29.9 PG (27.0-31.0) Mean Corpuscular Hemoglobin Concent 33.7 G/DL (32.0-36.0) Red Cell Distribution Width 14.3 % (11.6-14.8) Platelet Count 259 K/UL (150-450) Mean Platelet Volume 5.0 FL (6.5-10.1) L Neutrophils (%) (Auto) 70.9 % (45.0-75.0) Lymphocytes (%) (Auto) 20.9 % (20.0-45.0) Monocytes (%) (Auto) 5.5 % (1.0-10.0) Eosinophils (%) (Auto) 2.1 % (0.0-3.0) Basophils (%) (Auto) 0.6 % (0.0-2.0) Sodium Level 142 MMOL/L (136-145) Potassium Level 3.4 MMOL/L (3.5-5.1) L Chloride Level 106 MMOL/L (98-107) Carbon Dioxide Level 27 MMOL/L (21-32) Anion Gap 9 mmol/L (5-15) Blood Urea Nitrogen 32 mg/dL (7-18) H Creatinine 2.9 MG/DL (0.55-1.30) H Estimat Glomerular Filtration Rate 15.7 mL/min (>60) Glucose Level 145 MG/DL (74-106) H Calcium Level 8.9 MG/DL (8.5-10.1) Phosphorus Level 2.7 MG/DL (2.5-4.9) Magnesium Level 2.1 MG/DL (1.8-2.4) Total Bilirubin 0.4 MG/DL (0.2-1.0) Aspartate Amino Transf (AST/SGOT) 20 U/L (15-37) Alanine Aminotransferase (ALT/SGPT) 14 U/L (12-78) Alkaline Phosphatase 146 U/L (46-116) H Pro-B-Type Natriuretic Peptide > 00410 pg/mL (0-125) H Total Protein 6.0 G/DL (6.4-8.2) L Albumin 2.0 G/DL (3.4-5.0) L Globulin 4.0 g/dL Albumin/Globulin Ratio 0.5 (1.0-2.7) L Current Medications Medications (Trade) Dose Ordered Sig/Javier Route PRN Reason Start Time Stop Time Status Last Admin Dose Admin Acetaminophen (Tylenol) 650 mg Q4H PRN GT Mild Pain/Temp > 100.5 09/03/19 07:00 10/03/19 06:59 09/03/19 08:36 Acetylcysteine (Mucomyst) 100 mg Q4HRT N 08/31/19 19:00 11/29/19 18:59 09/06/19 08:02 Albuterol/ Ipratropium (Albuterol/ Ipratropium) 3 ml Q4HRT N 09/05/19 23:00 09/10/19 22:59 09/06/19 08:03 Amlodipine Besylate (Norvasc) 5 mg BID NG 08/23/19 01:45 09/22/19 01:44 09/05/19 18:18 Atropine Sulfate (Atropine) 1 mg Q4H PRN IVP Per rx protocol 08/13/19 08:30 09/12/19 08:29 Chlorhexidine Gluconate (Nae-Hex 2%) 1 applic DAILY@1999 TOPIC 08/15/19 20:00 09/14/19 19:59 09/05/19 20:40 Dextrose (Dextrose 50%) 25 ml Q30M PRN IV Hypoglycemia 09/02/19 06:15 12/01/19 06:14 09/04/19 12:11 Dextrose (Dextrose 50%) 50 ml Q30M PRN IV Hypoglycemia 09/02/19 06:15 12/01/19 06:14 Diphenhydramine HCl (Benadryl) 50 mg Q4H PRN IVP Itching 08/09/19 14:30 09/08/19 14:29 09/05/19 06:12 Epoetin Thomas (Epoetin Thomas(ESRD on dialysis)) 4,000 unit SUBQ 08/12/19 21:00 09/11/19 20:59 09/05/19 20:40 Hydralazine HCl (Apresoline) 10 mg Q4H PRN IV For High Blood Pressure 08/18/19 12:44 09/17/19 12:43 09/01/19 20:27 Hydralazine HCl (Apresoline) 25 mg Q6HR NG 08/23/19 06:00 09/22/19 05:59 09/06/19 06:04 Hydromorphone HCl (Dilaudid) 0.5 mg Q4H PRN IVP Pain Scale (6-10) 09/03/19 07:00 09/10/19 06:59 09/05/19 03:04 Lansoprazole (Prevacid) 30 mg BID GT 08/19/19 09:00 09/18/19 08:59 09/06/19 09:55 Levothyroxine Sodium (Synthroid) 50 mcg DAILY@0630 ORAL 08/25/19 06:30 09/24/19 06:29 09/06/19 06:05 Metoclopramide HCl (Reglan) 5 mg Q8H PRN IVP Nausea & Vomiting 08/09/19 12:39 09/08/19 12:38 Midazolam HCl 100 ml @ 0 mls/hr Q24H PRN IV Agitation 09/05/19 18:15 09/12/19 18:14 Melissa Solares MD Sep 06, 2019 10:54
--- NOTE | 2019-09-06 11:50 | Surgery Progress Note ---
Surgery Progress Note Subjective Procedure Performed left chest tube insertion Additional Comments no acute events chest tube output minimal unable to wean from vent labs noted. Objective Last 24 Hour Vital Signs Date Time Temp Pulse Resp B/P (MAP) Pulse Ox O2 Delivery O2 Flow Rate FiO2 09/06/19 11:00 84 18 140/64 (89) 100 09/06/19 10:20 98 09/06/19 10:00 80 22 137/65 (89) 100 09/06/19 09:10 81 18 40 09/06/19 09:00 79 18 135/62 (86) 100 09/06/19 09:00 62 120/62 09/06/19 08:03 76 18 100 Mechanical Ventilator 40 77 18 40 09/06/19 08:00 40 09/06/19 08:00 79 09/06/19 08:00 100.4 76 18 134/65 (88) 100 09/06/19 08:00 Mechanical Ventilator Mechanical Ventilator Mechanical Ventilator Mechanical Ventilator 09/06/19 07:00 90 24 151/95 (113) 100 09/06/19 06:30 82 18 09/06/19 06:04 142/63 09/06/19 06:00 82 22 142/63 (89) 100 09/06/19 05:09 83 21 40 09/06/19 05:00 80 21 142/63 (89) 100 09/06/19 04:00 79 09/06/19 04:00 Mechanical Ventilator Mechanical Ventilator Mechanical Ventilator Mechanical Ventilator 09/06/19 04:00 40 09/06/19 04:00 97.8 79 20 141/61 (87) 100 09/06/19 03:13 76 19 100 Mechanical Ventilator 40 78 18 40 09/06/19 03:00 78 23 137/64 (88) 100 09/06/19 02:00 88 23 144/59 (87) 100 09/06/19 01:25 99 20 40 09/06/19 01:00 97 18 153/71 (98) 100 09/06/19 00:22 147/97 09/06/19 00:00 Mechanical Ventilator Mechanical Ventilator Mechanical Ventilator Mechanical Ventilator 09/06/19 00:00 88 09/06/19 00:00 40 09/06/19 00:00 98.4 84 27 144/62 (89) 100 09/05/19 23:00 92 21 116/87 (97) 100 09/05/19 22:30 89 20 40 09/05/19 22:30 89 20 100 Mechanical Ventilator 40 09/05/19 22:00 88 23 145/98 (114) 100 09/05/19 21:15 91 21 40 09/05/19 21:00 89 26 100/82 (88) 100 09/05/19 20:00 98.3 89 22 130/72 (91) 100 09/05/19 20:00 Mechanical Ventilator Mechanical Ventilator Mechanical Ventilator Mechanical Ventilator 09/05/19 20:00 89 09/05/19 20:00 40 09/05/19 19:07 89 23 40 09/05/19 19:00 94 30 134/84 (101) 100 09/05/19 18:18 88 147/70 09/05/19 18:18 147/70 09/05/19 18:00 90 25 147/70 (95) 100 09/05/19 17:13 81 19 40 09/05/19 17:00 79 27 136/62 (86) 100 09/05/19 16:00 Mechanical Ventilator Mechanical Ventilator Mechanical Ventilator Mechanical Ventilator 09/05/19 16:00 40 09/05/19 16:00 97.8 82 27 137/61 (86) 100 09/05/19 16:00 81 09/05/19 15:27 84 10 100 Mechanical Ventilator 40 85 20 40 09/05/19 15:00 92 25 106/53 (70) 100 09/05/19 14:00 92 24 150/61 (90) 100 09/05/19 13:13 93 21 40 09/05/19 13:05 88 26 108/80 (89) 100 09/05/19 13:00 82 19 176/146 (156) 100 09/05/19 12:44 164/89 09/05/19 12:00 Mechanical Ventilator Mechanical Ventilator Mechanical Ventilator Mechanical Ventilator 09/05/19 12:00 86 09/05/19 12:00 40 09/05/19 12:00 98.9 90 24 139/116 (124) 97 I&O Intake and Output 09/05/19 09/06/19 19:00 07:00 Intake Total 605 ml 350 ml Output Total 190 ml 85 ml Balance 415 ml 265 ml Intake Free Water 150 ml Tube Feeding 455 ml 350 ml Output Urine Total 190 ml 75 ml Chest Tube Drainage Total 0 ml 10 ml # Bowel Movements 2 2 Dressing: saturated Wound: other Drains: other Cardiovascular: RSR Respiratory: decreased breath sounds Abdomen: soft, non-tender, present bowel sounds, non-distended Extremities: no edema, no tenderness, no cyanosis Laboratory Tests Test 09/06/19 03:45 White Blood Count 7.0 K/UL (4.8-10.8) Red Blood Count 3.28 M/UL (4.20-5.40) L Hemoglobin 9.8 G/DL (12.0-16.0) L Hematocrit 29.2 % (37.0-47.0) L Mean Corpuscular Volume 89 FL (80-99) Mean Corpuscular Hemoglobin 29.9 PG (27.0-31.0) Mean Corpuscular Hemoglobin Concent 33.7 G/DL (32.0-36.0) Red Cell Distribution Width 14.3 % (11.6-14.8) Platelet Count 259 K/UL (150-450) Mean Platelet Volume 5.0 FL (6.5-10.1) L Neutrophils (%) (Auto) 70.9 % (45.0-75.0) Lymphocytes (%) (Auto) 20.9 % (20.0-45.0) Monocytes (%) (Auto) 5.5 % (1.0-10.0) Eosinophils (%) (Auto) 2.1 % (0.0-3.0) Basophils (%) (Auto) 0.6 % (0.0-2.0) Sodium Level 142 MMOL/L (136-145) Potassium Level 3.4 MMOL/L (3.5-5.1) L Chloride Level 106 MMOL/L (98-107) Carbon Dioxide Level 27 MMOL/L (21-32) Anion Gap 9 mmol/L (5-15) Blood Urea Nitrogen 32 mg/dL (7-18) H Creatinine 2.9 MG/DL (0.55-1.30) H Estimat Glomerular Filtration Rate 15.7 mL/min (>60) Glucose Level 145 MG/DL (74-106) H Calcium Level 8.9 MG/DL (8.5-10.1) Phosphorus Level 2.7 MG/DL (2.5-4.9) Magnesium Level 2.1 MG/DL (1.8-2.4) Total Bilirubin 0.4 MG/DL (0.2-1.0) Aspartate Amino Transf (AST/SGOT) 20 U/L (15-37) Alanine Aminotransferase (ALT/SGPT) 14 U/L (12-78) Alkaline Phosphatase 146 U/L (46-116) H Pro-B-Type Natriuretic Peptide > 62649 pg/mL (0-125) H Total Protein 6.0 G/DL (6.4-8.2) L Albumin 2.0 G/DL (3.4-5.0) L Globulin 4.0 g/dL Albumin/Globulin Ratio 0.5 (1.0-2.7) L Assessment Post-op Diagnosis same Plan Problems: (1) Malnutrition Assessment & Plan: DAILY ESTIMATED NEEDS: Needs based on ESRD+ HD, underweight, wound/ 39.5kg 35-40 kcals/kg 4298-2884 total kcals 1.25-1.8 g protein/kg 49-71 g total protein 20-22 mL/kg 790-869 total fluid mLs NUTRITION DIAGNOSIS: * Increased kcal and protein needs r/t underweight status, HD needs, wuond healing as evidenced by pt is underweight per guidelines, ESRD, on HD, admitted non-blanching erythema wounds @ BL heels and sacrum * Swallowing difficulty R/T dysphagia as evidenced by LE[facility] SPECIALIST recommends temporary nonoral feeding at this time, s/p NGT insertion, on NGT feeding-> now s/p self removal, NPO. CURRENT TF:NPO PO DIET RECOMMENDATIONS: WHEN SAFE FOR ORAL DIET -> renal/ texture per LEAN SPECIALIST ENTERAL NUTRITION RECOMMENDATIONS: W/ GI access: Nepro @ 35ml/hr x 22 hrs to provide 770ml, 1386kcal, 62g prot, 560ml free water * W/ GI access, resume TF on Nepro * Initiate Nepro @ 15ml/hr x 6 hrs, advance 10ml q 4-6 hrs as tolerated to goal rate. * Hold 1 hour before and after Synthroid med * HOB over 30 degrees/ water flush per MD. ADDITIONAL RECOMMENDATIONS: 1) Calibrated bed scale wt for accurate CBW -> daily wt monitoring Per HD record: dry wt on 07/30=39.5kg (87lbs) 2) Wound care: (W/ GI access) add Nephorivte x 1 + Balta BID 3) Monitor NPO status: without GI access at this time, s/p pulling out NGT 4) Monitor for hypoglycemia while NPO 5) Monitor for continuity of HD (2) Septic arthritis Assessment & Plan: Pt presented on admission with generalized scaly rash . pt noted to be restless and scratching at skin. Bleeding from oral mucosa noted. Joint deformity noted to R shoulder. Surgical incision approximated with 11 sutures. Erythema but no exudate,or elevation in skin temp at site of incision. Historical incision R hip that is tunneled.Small amt seropurulent exudate noted. Periwound is erythematous,but no elevation in skin temp noted. No odor noted. Non-blanching erythema noted to sacrum. Perianal area is erythematous and excoriated. L heel is boggy with non-blanching erythema. R heel is soft with non-blanching erythema. No evidence of skin breakdown to all other bony prominences. Tx.plan: Cover R shoulder with Drsg and change daily and prn. Cleanse R hip wound with Saline. Apply Therahoney.Apply Cavilon Skin Barrier periwound. Cover with Optifoam drsg. Change every 3 days and prn. Apply Moisture Barrier Paste to perianal area and buttocks. Cover Sacrum with Optifoam drsg. Change every 3 days and prn. Apply Cavilon Skin Barrier to both heels. Cover each heel with Optifoam drsg. Change every 7 days and prn. APM/ELVIA Mattress overlay. Reposition at least every 2hours or as tolerated. Off-load heels with pillow. HD cath necessary HD as renal likely will need intubation (3) Wound, open, hip or thigh with complication Assessment & Plan: slow healing will need nutritional optimization difficult ng tube peg when stable sutures removed from right shoulder comfortable wean vent may need trach (4) Abscess of right hip (5) possible septic arthritis (6) Renal failure (ARF), acute on chronic Assessment & Plan: cont HD will need tunneled cath placement okay to use fem line for now but will need change soon. line monitored and clean dressings going well (7) Pneumonia Assessment & Plan: intubated on vent support not tolerating weaning may need trach hemothorax likely after thoracentesis Chest CT noted Left chest tube placed With plan for trach chest tube can be considered but overall prognosis is very poor Additional Comments chest tube to water seal plan trach soon Camilo James Sep 06, 2019 11:50
--- NOTE | 2019-09-06 11:52 | Pre-Procedure Note/Attestation ---
Pre-Procedure Note/Attestation Complete Prior to Procedure Planned Procedure: not applicable Procedure Narrative: tracheostomy Indications for Procedure Pre-Operative Diagnosis: respiratory insufficiency requiring prolonged ventilatory support Attestation I attest that I discussed the nature of the procedure; its benefits; risks and complications; and alternatives (and the risks and benefits of such alternatives ), prior to the procedure, with the patient (or the patient's legal business center representative). I attest that, if there was a reasonable possibility of needing a blood transfusion, the patient (or the patient's legal business center representative) was given the [facility] standardized written summary, pursuant to the Carlos Justin Blood Safety Act ([place] Health and Safety Code # 1645, as amended). I attest that I re-evaluated the patient just prior to the surgery and that there has been no change in the patient's H&P, except as documented below: Camilo James Sep 06, 2019 11:52
--- NOTE | 2019-09-06 12:46 | Nephrology Progress Note ---
Assessment/Plan Problem List: (1) ESRD (end stage renal disease) on dialysis (2) Malnutrition (3) Anemia in CKD (chronic kidney disease) (4) Hypotension (5) Thrombocytopenia (6) Sepsis Assessment: klebsiella in blood Assessment -Early sepsis with shock. -Healthcare-associated pneumonia. -Severe protein-calorie malnutrition. -Thrombocytopenia. - End-stage renal disease. - History of hypertension. - Bradycardia. - HypoThyroid Plan Continues to have chest tube on the left side was put in on September 01 Patient transfused 3 units of packed RBCs for low hemoglobin Been stable today Remains full code Last dialysis September 03 next hemodialysis as needed Due to her overall medical condition I favor DNR and comfort care Blood pressure fluctuating, will start hydralazine via NG tube for blood pressure Magnesium and potassium supplement intravenously as needed Patient underwent PEG placement August 16 patient remains intubated on ventilator Discussed with RN Aim to wean from ventilator or consider tracheostomy Permacath was removed on August 12 Dialysis 08/11 Transfusion as needed Patient had hematemesis meds IV as possible Surveillance blood cultures tomorrow Plan to put the permacath back in on Thursday if cultures are negative keep BP and BS in check Inflammatory markers per orders Subjective ROS Limited/Unobtainable: Yes Objective Objective Last 24 Hour Vital Signs Date Time Temp Pulse Resp B/P (MAP) Pulse Ox O2 Delivery O2 Flow Rate FiO2 09/06/19 12:00 84 09/06/19 12:00 79 19 137/62 (87) 100 09/06/19 12:00 40 09/06/19 12:00 Mechanical Ventilator Mechanical Ventilator Mechanical Ventilator Mechanical Ventilator 09/06/19 11:55 81 18 100 Mechanical Ventilator 40 80 18 40 09/06/19 11:53 81 18 100 Mechanical Ventilator 40 80 18 40 09/06/19 11:00 84 18 140/64 (89) 100 09/06/19 10:20 98 09/06/19 10:00 80 22 137/65 (89) 100 09/06/19 09:10 81 18 40 09/06/19 09:00 79 18 135/62 (86) 100 09/06/19 09:00 62 120/62 09/06/19 08:03 76 18 100 Mechanical Ventilator 40 77 18 40 09/06/19 08:00 40 09/06/19 08:00 79 09/06/19 08:00 100.4 76 18 134/65 (88) 100 3/24/20 08:00 Mechanical Ventilator Mechanical Ventilator Mechanical Ventilator Mechanical Ventilator 09/06/19 07:00 90 24 151/95 (113) 100 09/06/19 06:30 82 18 09/06/19 06:04 142/63 09/06/19 06:00 82 22 142/63 (89) 100 09/06/19 05:09 83 21 40 09/06/19 05:00 80 21 142/63 (89) 100 09/06/19 04:00 79 09/06/19 04:00 Mechanical Ventilator Mechanical Ventilator Mechanical Ventilator Mechanical Ventilator 09/06/19 04:00 40 09/06/19 04:00 97.8 79 20 141/61 (87) 100 09/06/19 03:13 76 19 100 Mechanical Ventilator 40 78 18 40 09/06/19 03:00 78 23 137/64 (88) 100 09/06/19 02:00 88 23 144/59 (87) 100 09/06/19 01:25 99 20 40 09/06/19 01:00 97 18 153/71 (98) 100 09/06/19 00:22 147/97 09/06/19 00:00 Mechanical Ventilator Mechanical Ventilator Mechanical Ventilator Mechanical Ventilator 09/06/19 00:00 88 09/06/19 00:00 40 09/06/19 00:00 98.4 84 27 144/62 (89) 100 09/05/19 23:00 92 21 116/87 (97) 100 09/05/19 22:30 89 20 40 09/05/19 22:30 89 20 100 Mechanical Ventilator 40 09/05/19 22:00 88 23 145/98 (114) 100 09/05/19 21:15 91 21 40 09/05/19 21:00 89 26 100/82 (88) 100 09/05/19 20:00 98.3 89 22 130/72 (91) 100 09/05/19 20:00 Mechanical Ventilator Mechanical Ventilator Mechanical Ventilator Mechanical Ventilator 09/05/19 20:00 89 09/05/19 20:00 40 09/05/19 19:07 89 23 40 09/05/19 19:00 94 30 134/84 (101) 100 09/05/19 18:18 88 147/70 09/05/19 18:18 147/70 09/05/19 18:00 90 25 147/70 (95) 100 09/05/19 17:13 81 19 40 09/05/19 17:00 79 27 136/62 (86) 100 09/05/19 16:00 Mechanical Ventilator Mechanical Ventilator Mechanical Ventilator Mechanical Ventilator 09/05/19 16:00 40 09/05/19 16:00 97.8 82 27 137/61 (86) 100 09/05/19 16:00 81 09/05/19 15:27 84 10 100 Mechanical Ventilator 40 85 20 40 09/05/19 15:00 92 25 106/53 (70) 100 09/05/19 14:00 92 24 150/61 (90) 100 09/05/19 13:13 93 21 40 09/05/19 13:05 88 26 108/80 (89) 100 09/05/19 13:00 82 19 176/146 (156) 100 Intake and Output 09/05/19 09/06/19 19:00 07:00 Intake Total 605 ml 350 ml Output Total 190 ml 85 ml Balance 415 ml 265 ml Intake Free Water 150 ml Tube Feeding 455 ml 350 ml Output Urine Total 190 ml 75 ml Chest Tube Drainage Total 0 ml 10 ml # Bowel Movements 2 2 Current Medications Medications (Trade) Dose Ordered Sig/Javier Route PRN Reason Start Time Stop Time Status Last Admin Dose Admin Acetaminophen (Tylenol) 650 mg Q4H PRN GT Mild Pain/Temp > 100.5 09/03/19 07:00 10/03/19 06:59 09/03/19 08:36 Acetylcysteine (Mucomyst) 100 mg Q4HRT N 08/31/19 19:00 11/29/19 18:59 09/06/19 11:55 Albuterol/ Ipratropium (Albuterol/ Ipratropium) 3 ml Q4HRT N 09/05/19 23:00 09/10/19 22:59 09/06/19 11:55 Amlodipine Besylate (Norvasc) 5 mg BID NG 08/23/19 01:45 09/22/19 01:44 09/05/19 18:18 Atropine Sulfate (Atropine) 1 mg Q4H PRN IVP Per rx protocol 08/13/19 08:30 09/12/19 08:29 Chlorhexidine Gluconate (Nae-Hex 2%) 1 applic DAILY@1999 TOPIC 08/15/19 20:00 09/14/19 19:59 09/05/19 20:40 Dextrose (Dextrose 50%) 25 ml Q30M PRN IV Hypoglycemia 09/02/19 06:15 12/01/19 06:14 09/04/19 12:11 Dextrose (Dextrose 50%) 50 ml Q30M PRN IV Hypoglycemia 09/02/19 06:15 12/01/19 06:14 Diphenhydramine HCl (Benadryl) 50 mg Q4H PRN IVP Itching 08/09/19 14:30 09/08/19 14:29 09/05/19 06:12 Epoetin Thomas (Epoetin Thomas(ESRD on dialysis)) 4,000 unit SUBQ 08/12/19 21:00 09/11/19 20:59 09/05/19 20:40 Hydralazine HCl (Apresoline) 10 mg Q4H PRN IV For High Blood Pressure 08/18/19 12:44 09/17/19 12:43 09/01/19 20:27 Hydralazine HCl (Apresoline) 25 mg Q6HR NG 08/23/19 06:00 09/22/19 05:59 09/06/19 06:04 Hydromorphone HCl (Dilaudid) 0.5 mg Q4H PRN IVP Pain Scale (6-10) 09/03/19 07:00 09/10/19 06:59 09/05/19 03:04 Lansoprazole (Prevacid) 30 mg BID GT 08/19/19 09:00 09/18/19 08:59 09/06/19 09:55 Levothyroxine Sodium (Synthroid) 50 mcg DAILY@0630 ORAL 08/25/19 06:30 09/24/19 06:29 09/06/19 06:05 Metoclopramide HCl (Reglan) 5 mg Q8H PRN IVP Nausea & Vomiting 08/09/19 12:39 09/08/19 12:38 Midazolam HCl 100 ml @ 0 mls/hr Q24H PRN IV Agitation 09/05/19 18:15 09/12/19 18:14 Laboratory Tests 09/06/19 03:45: White Blood Count 7.0, Red Blood Count 3.28L, Hemoglobin 9.8L, Hematocrit 29.2L , Mean Corpuscular Volume 89, Mean Corpuscular Hemoglobin 29.9, Mean Corpuscular Hemoglobin Concent 33.7, Red Cell Distribution Width 14.3, Platelet Count 259, Mean Platelet Volume 5.0L, Neutrophils (%) (Auto) 70.9, Lymphocytes ( %) (Auto) 20.9, Monocytes (%) (Auto) 5.5, Eosinophils (%) (Auto) 2.1, Basophils (%) (Auto) 0.6, Sodium Level 142, Potassium Level 3.4L, Chloride Level 106, Carbon Dioxide Level 27, Anion Gap 9, Blood Urea Nitrogen 32H, Creatinine 2.9H, Estimat Glomerular Filtration Rate 15.7, Glucose Level 145H, Calcium Level 8.9, Phosphorus Level 2.7, Magnesium Level 2.1, Total Bilirubin 0.4, Aspartate Amino Transf (AST/SGOT) 20, Alanine Aminotransferase (ALT/SGPT) 14, Alkaline Phosphatase 146H, Pro-B-Type Natriuretic Peptide > 71350E, Total Protein 6.0L, Albumin 2.0L, Globulin 4.0, Albumin/Globulin Ratio 0.5L Height (Feet): 5 Height (Inches): 4.00 Weight (Pounds): 112 General Appearance: no apparent distress EENT: other - Continues to be intubated on ventilator Cardiovascular: tachycardia Respiratory/Chest: decreased breath sounds, other - Left chest tube present Objective no change William Blackwood MD Sep 06, 2019 12:46
--- NOTE | 2019-09-06 15:27 | General Progress Note ---
Assessment/Plan Problem List: (1) Failure to thrive (0-17) ICD Codes: R62.51 - Failure to thrive (0-17) SNOMED: 867755364 (2) Hypertensive kidney disease ICD Codes: I12.9 - Hypertensive chronic kidney disease with stage 1 through stage 4 chronic kidney disease, or unspecified chronic kidney disease SNOMED: 72834109 (3) Pneumonia ICD Codes: J18.9 - Pneumonia, unspecified organism SNOMED: 026205925 Qualifiers: Qualified Codes: J18.9 - Pneumonia, unspecified organism (4) ESRD (end stage renal disease) ICD Codes: N18.6 - End stage renal disease SNOMED: 49395001 (5) Septic arthritis ICD Codes: M00.9 - Pyogenic arthritis, unspecified SNOMED: 186860345 (6) Thrombocytopenia ICD Codes: D69.6 - Thrombocytopenia, unspecified SNOMED: 419151800 (7) Hypotension ICD Codes: I95.9 - Hypotension, unspecified SNOMED: 48359275 Qualifiers: Qualified Codes: I95.3 - Hypotension of hemodialysis (8) Malnutrition ICD Codes: E46 - Unspecified protein-calorie malnutrition SNOMED: 00189843 Status: stable, not improved, unchanged, deteriorating Assessment/Plan: cont resp care chest pt/suctioning resp rx monitor cbc transfuse as needed cont weaning- try simv monitor plts iv PPI iv abx HD bp rx Subjective ROS Limited/Unobtainable: No Constitutional: Reports: malaise, weakness HEENT: Reports: no symptoms Cardiovascular: Reports: no symptoms Respiratory: Reports: shortness of breath, sputum Gastrointestinal/Abdominal: Reports: difficulty swallowing Genitourinary: Reports: no symptoms Neurologic/Psychiatric: Reports: anxiety Endocrine: Reports: no symptoms Hematologic/Lymphatic: Reports: anemia Allergies: Coded Allergies: VANCOMYCIN (Unverified Allergy, Unknown, 08/02/19) All Systems: reviewed and negative except above Subjective no events, w/o complaints.stable s/p chest tube placement. tolerated well. alert. remains on the vent. minimal bloody output from ct. some serosanguinous drainage from ct site h/h remains stable Objective Last 24 Hour Vital Signs Date Time Temp Pulse Resp B/P (MAP) Pulse Ox O2 Delivery O2 Flow Rate FiO2 09/06/19 15:00 76 17 136/66 (89) 100 09/06/19 14:00 80 20 141/65 (90) 100 09/06/19 13:25 93 22 40 09/06/19 13:00 85 19 140/65 (90) 100 09/06/19 12:00 84 09/06/19 12:00 79 19 137/62 (87) 100 09/06/19 12:00 40 09/06/19 12:00 Mechanical Ventilator Mechanical Ventilator Mechanical Ventilator Mechanical Ventilator 09/06/19 11:55 81 18 100 Mechanical Ventilator 40 80 18 40 09/06/19 11:53 81 18 100 Mechanical Ventilator 40 80 18 40 09/06/19 11:00 84 18 140/64 (89) 100 09/06/19 10:20 98 09/06/19 10:00 80 22 137/65 (89) 100 09/06/19 09:10 81 18 40 09/06/19 09:00 79 18 135/62 (86) 100 09/06/19 09:00 62 120/62 09/06/19 08:03 76 18 100 Mechanical Ventilator 40 77 18 40 09/06/19 08:00 40 09/06/19 08:00 79 09/06/19 08:00 100.4 76 18 134/65 (88) 100 09/06/19 08:00 Mechanical Ventilator Mechanical Ventilator Mechanical Ventilator Mechanical Ventilator 09/06/19 07:00 90 24 151/95 (113) 100 09/06/19 06:30 82 18 09/06/19 06:04 142/63 09/06/19 06:00 82 22 142/63 (89) 100 09/06/19 05:09 83 21 40 09/06/19 05:00 80 21 142/63 (89) 100 09/06/19 04:00 79 09/06/19 04:00 Mechanical Ventilator Mechanical Ventilator Mechanical Ventilator Mechanical Ventilator 09/06/19 04:00 40 09/06/19 04:00 97.8 79 20 141/61 (87) 100 09/06/19 03:13 76 19 100 Mechanical Ventilator 40 78 18 40 09/06/19 03:00 78 23 137/64 (88) 100 09/06/19 02:00 88 23 144/59 (87) 100 09/06/19 01:25 99 20 40 09/06/19 01:00 97 18 153/71 (98) 100 09/06/19 00:22 147/97 09/06/19 00:00 Mechanical Ventilator Mechanical Ventilator Mechanical Ventilator Mechanical Ventilator 09/06/19 00:00 88 09/06/19 00:00 40 09/06/19 00:00 98.4 84 27 144/62 (89) 100 09/05/19 23:00 92 21 116/87 (97) 100 09/05/19 22:30 89 20 40 09/05/19 22:30 89 20 100 Mechanical Ventilator 40 09/05/19 22:00 88 23 145/98 (114) 100 09/05/19 21:15 91 21 40 09/05/19 21:00 89 26 100/82 (88) 100 09/05/19 20:00 98.3 89 22 130/72 (91) 100 09/05/19 20:00 Mechanical Ventilator Mechanical Ventilator Mechanical Ventilator Mechanical Ventilator 09/05/19 20:00 89 09/05/19 20:00 40 09/05/19 19:07 89 23 40 09/05/19 19:00 94 30 134/84 (101) 100 09/05/19 18:18 88 147/70 09/05/19 18:18 147/70 09/05/19 18:00 90 25 147/70 (95) 100 09/05/19 17:13 81 19 40 09/05/19 17:00 79 27 136/62 (86) 100 09/05/19 16:00 Mechanical Ventilator Mechanical Ventilator Mechanical Ventilator Mechanical Ventilator 09/05/19 16:00 40 09/05/19 16:00 97.8 82 27 137/61 (86) 100 09/05/19 16:00 81 09/05/19 15:27 84 10 100 Mechanical Ventilator 40 85 20 40 Intake and Output 09/05/19 09/06/19 19:00 07:00 Intake Total 605 ml 350 ml Output Total 190 ml 85 ml Balance 415 ml 265 ml Intake Free Water 150 ml Tube Feeding 455 ml 350 ml Output Urine Total 190 ml 75 ml Chest Tube Drainage Total 0 ml 10 ml # Bowel Movements 2 2 Laboratory Tests 09/06/19 03:45: White Blood Count 7.0, Red Blood Count 3.28L, Hemoglobin 9.8L, Hematocrit 29.2L , Mean Corpuscular Volume 89, Mean Corpuscular Hemoglobin 29.9, Mean Corpuscular Hemoglobin Concent 33.7, Red Cell Distribution Width 14.3, Platelet Count 259, Mean Platelet Volume 5.0L, Neutrophils (%) (Auto) 70.9, Lymphocytes ( %) (Auto) 20.9, Monocytes (%) (Auto) 5.5, Eosinophils (%) (Auto) 2.1, Basophils (%) (Auto) 0.6, Sodium Level 142, Potassium Level 3.4L, Chloride Level 106, Carbon Dioxide Level 27, Anion Gap 9, Blood Urea Nitrogen 32H, Creatinine 2.9H, Estimat Glomerular Filtration Rate 15.7, Glucose Level 145H, Calcium Level 8.9, Phosphorus Level 2.7, Magnesium Level 2.1, Total Bilirubin 0.4, Aspartate Amino Transf (AST/SGOT) 20, Alanine Aminotransferase (ALT/SGPT) 14, Alkaline Phosphatase 146H, Pro-B-Type Natriuretic Peptide > 21789H, Total Protein 6.0L, Albumin 2.0L, Globulin 4.0, Albumin/Globulin Ratio 0.5L Height (Feet): 5 Height (Inches): 4.00 Weight (Pounds): 112 Objective General Appearance: WD/WN, awake/moaning. orally intubated Neck: supple Cardiovascular: normal rate Respiratory/Chest: rhonchi - bilaterally Abdomen: normal bowel sounds, non tender, soft, no organomegaly Edema: no edema noted Arm (L), no edema noted Arm (R), no edema noted Leg (L), no edema noted Leg (R), no edema noted Pedal (L), no edema noted Pedal (R), no edema noted Generalized Neurologic: disoriented, aphasia Nate Beltran MD Sep 06, 2019 15:27
[2019-09-06] MEDS: Dyna-Hex 2% Top Sol 2oz TOPIC SCH (19:29)
--- NOTE | 2019-09-06 19:43 | Hematology/Onc Progress Note ---
Assessment/Plan Assessment/Plan # Thrombocytopenia - potential causes multifactorial, evaluate liver and viral etiologies to begin, in this case due to sepsis with septic shock also with cirrhosis and liver disease --> Hep panel and HIV ordered -> neg --> US abd to evaluate for cirrhosis and hsm ordered --> reviewed --> Peripheral smear ordered to evaluate for blasts /schistocytes --> abx and other meds have been reviewed --> ok for ppx if plt >50k w/ either heparin or lovenox --> Transfuse if Plt < 20k and fever, or if Plt < 10k without fever --> okay for permacath change once plt better--> for 08/14 --> plt trend: 43-->83-->237k-->292-->341-->315-->388 -->444-->530 # Anemia of chronic disease due to underlying chronic medical issues, multifactorial v Gi bleed --> Anemia workup has been ordered, rule out gi bleed --> No evidence of hemolysis is noted, peripheral smear has been reviewed. --> Hgb goal >7. Transfuse prn. --> Epogen has been started --> HOLD OFF IRON ferritin is >1000 --> Medications have been reviewed --> low threshold for gi evaluation in case has occult + --> hgb 9-->6.7-->9.2 -->10.5-->10.6 -->10.7-->10-->10.5-->9.8-->10.4-->9.5--> 3.6-->9.6-->9.7 --> blood tx: 08/11, 08/31 --> CT Chest pendig r/o hemothorax --> does show Confirmation of a large left hemothorax. Complete atelectasis of the left lower lobe and partial left upper lobe atelectasis demonstrated. Mild rightward shift of the heart and mediastinum. # Sepsis with shock. --> abx as per id, recs noted --> pressors as needed # Healthcare-associated pneumonia. --> recs reviewed --> abx: jung/micafungin-->jung --> 08/24 us chest: moderate left pleural effusion # Severe protein-calorie malnutrition. --> nutritional support # End-stage renal disease --> had as renal hd --> with permacath # History of hypertension. --> per cards, now with Bradycardia. # resp failure s/p vent/trach # HypoThyroid # Ngt feedings # Dvt ppx scd's The timing of this note does not necessarily reflect the time of the patient was seen. Greatly appreciate consultation. Subjective Allergies: Coded Allergies: VANCOMYCIN (Unverified Allergy, Unknown, 08/02/19) Subjective 08/11: no bleeding or chills, labs reviewed, no major bleeding, plt less than 50k 08/12: icu, s/p blood, hgb improved to 9.2, 08/14: icu, pending consent for thora and permacath, labs reviewed 08/15: new permacath placed, no bleeding, for hd, plt much improved, started lovenox sq 08/16: ett to be adjusted, bp on high end, micafungin started, possible bronch 08/17: weaning as per pulm, no events otherwise, labs noted 08/18: no events no bleeding, remains confused on vent, for hd 08/20: icu, failed to wean, labs reviewed, jung 08/21: resting in bed, no overnight events, labs reviewed 08/22: awake, confused, restraints, no overnight events 08/23: no events, no bleeding, on ppi bid 08/24: icu, failed to wean, labs reviewed 08/25: no overnight events, us chest, restraints, afebrile 08/26 difficult in weaning, nad, seen by surg, pulm labs noted 08/27 awake on restraints, thoracentesis for am, labs reviewed 08/29 no bleeding, no night sweats, no major changes, on ppi bid 08/30 no major events, remains on vent, no bleeding, dw pcp 08/31 hgb dropped to 3.6, has been transfused with prbc, in icu, david Rn, ct chest pend 09/01 no major events, no bleeding, labs noted, hgb remains low, hgb 9.6 09/03 lethargic, left chest tube dry/intact, off abx, vent 09/04 remains on a vent, synthroid, labs reviewed 09/05 awake and alert, no acute events, hgb 9.8, no new orders Objective Objective Current Medications Medications (Trade) Dose Ordered Sig/Javier Route PRN Reason Start Time Stop Time Status Last Admin Dose Admin Acetaminophen (Tylenol) 650 mg Q4H PRN GT Mild Pain/Temp > 100.5 09/03/19 07:00 10/03/19 06:59 09/03/19 08:36 Acetylcysteine (Mucomyst) 100 mg Q4HRT N 08/31/19 19:00 11/29/19 18:59 09/06/19 19:32 Albuterol/ Ipratropium (Albuterol/ Ipratropium) 3 ml Q4HRT N 09/05/19 23:00 09/10/19 22:59 09/06/19 19:32 Amlodipine Besylate (Norvasc) 5 mg BID NG 08/23/19 01:45 09/22/19 01:44 09/05/19 18:18 Atropine Sulfate (Atropine) 1 mg Q4H PRN IVP Per rx protocol 08/13/19 08:30 09/12/19 08:29 Chlorhexidine Gluconate (Nae-Hex 2%) 1 applic DAILY@2000 TOPIC 08/15/19 20:00 09/14/19 19:59 09/06/19 19:29 Dextrose (Dextrose 50%) 25 ml Q30M PRN IV Hypoglycemia 09/02/19 06:15 12/01/19 06:14 09/04/19 12:11 Dextrose (Dextrose 50%) 50 ml Q30M PRN IV Hypoglycemia 09/02/19 06:15 12/01/19 06:14 Diphenhydramine HCl (Benadryl) 50 mg Q4H PRN IVP Itching 08/09/19 14:30 09/08/19 14:29 09/05/19 06:12 Epoetin Thomas (Epoetin Thomas(ESRD on dialysis)) 4,000 unit THU-THU-THU SUBQ 08/12/19 21:00 09/11/19 20:59 09/05/19 20:40 Hydralazine HCl (Apresoline) 10 mg Q4H PRN IV For High Blood Pressure 08/18/19 12:44 09/17/19 12:43 09/01/19 20:27 Hydralazine HCl (Apresoline) 25 mg Q6HR NG 08/23/19 06:00 09/22/19 05:59 09/06/19 06:04 Hydromorphone HCl (Dilaudid) 0.5 mg Q4H PRN IVP Pain Scale (6-10) 09/03/19 07:00 09/10/19 06:59 09/05/19 03:04 Lansoprazole (Prevacid) 30 mg BID GT 08/19/19 09:00 09/18/19 08:59 09/06/19 18:27 Levothyroxine Sodium (Synthroid) 50 mcg DAILY@0630 ORAL 08/25/19 06:30 09/24/19 06:29 09/06/19 06:05 Metoclopramide HCl (Reglan) 5 mg Q8H PRN IVP Nausea & Vomiting 08/09/19 12:39 09/08/19 12:38 Midazolam HCl 100 ml @ 0 mls/hr Q24H PRN IV Agitation 09/05/19 18:15 09/12/19 18:14 Last 24 Hour Vital Signs Date Time Temp Pulse Resp B/P (MAP) Pulse Ox O2 Delivery O2 Flow Rate FiO2 09/06/19 19:32 91 25 100 Mechanical Ventilator 40 93 19 40 09/06/19 19:00 90 24 134/64 (87) 92 09/06/19 18:00 91 23 147/69 (95) 100 09/06/19 17:00 97.8 86 26 149/66 (93) 100 09/06/19 16:38 76 22 100 Mechanical Ventilator 40 76 18 40 09/06/19 16:00 78 09/06/19 16:00 78 19 142/63 (89) 100 09/06/19 16:00 Mechanical Ventilator Mechanical Ventilator Mechanical Ventilator Mechanical Ventilator 09/06/19 16:00 40 09/06/19 15:05 76 18 40 09/06/19 15:00 76 17 136/66 (89) 100 09/06/19 14:00 80 20 141/65 (90) 100 09/06/19 13:25 93 22 40 09/06/19 13:00 85 19 140/65 (90) 100 09/06/19 12:00 84 09/06/19 12:00 79 19 137/62 (87) 100 09/06/19 12:00 40 09/06/19 12:00 Mechanical Ventilator Mechanical Ventilator Mechanical Ventilator Mechanical Ventilator 09/06/19 11:55 81 18 100 Mechanical Ventilator 40 80 18 40 09/06/19 11:53 81 18 100 Mechanical Ventilator 40 80 18 40 09/06/19 11:00 84 18 140/64 (89) 100 09/06/19 10:20 98 09/06/19 10:00 80 22 137/65 (89) 100 09/06/19 09:10 81 18 40 09/06/19 09:00 79 18 135/62 (86) 100 09/06/19 09:00 62 120/62 09/06/19 08:03 76 18 100 Mechanical Ventilator 40 77 18 40 09/06/19 08:00 40 09/06/19 08:00 79 09/06/19 08:00 100.4 76 18 134/65 (88) 100 09/06/19 08:00 Mechanical Ventilator Mechanical Ventilator Mechanical Ventilator Mechanical Ventilator 09/06/19 07:00 90 24 151/95 (113) 100 09/06/19 06:30 82 18 09/06/19 06:04 142/63 09/06/19 06:00 82 22 142/63 (89) 100 09/06/19 05:09 83 21 40 09/06/19 05:00 80 21 142/63 (89) 100 09/06/19 04:00 79 09/06/19 04:00 Mechanical Ventilator Mechanical Ventilator Mechanical Ventilator Mechanical Ventilator 09/06/19 04:00 40 09/06/19 04:00 97.8 79 20 141/61 (87) 100 09/06/19 03:13 76 19 100 Mechanical Ventilator 40 78 18 40 09/06/19 03:00 78 23 137/64 (88) 100 09/06/19 02:00 88 23 144/59 (87) 100 09/06/19 01:25 99 20 40 09/06/19 01:00 97 18 153/71 (98) 100 09/06/19 00:22 147/97 09/06/19 00:00 Mechanical Ventilator Mechanical Ventilator Mechanical Ventilator Mechanical Ventilator 09/06/19 00:00 88 09/06/19 00:00 40 09/06/19 00:00 98.4 84 27 144/62 (89) 100 09/05/19 23:00 92 21 116/87 (97) 100 09/05/19 22:30 89 20 40 09/05/19 22:30 89 20 100 Mechanical Ventilator 40 09/05/19 22:00 88 23 145/98 (114) 100 09/05/19 21:15 91 21 40 09/05/19 21:00 89 26 100/82 (88) 100 09/05/19 20:00 98.3 89 22 130/72 (91) 100 09/05/19 20:00 Mechanical Ventilator Mechanical Ventilator Mechanical Ventilator Mechanical Ventilator 09/05/19 20:00 89 09/05/19 20:00 40 09/05/19 19:07 89 23 40 09/05/19 19:00 94 30 134/84 (101) 100 09/05/19 18:18 88 147/70 09/05/19 18:18 147/70 09/05/19 18:00 90 25 147/70 (95) 100 09/05/19 17:13 81 19 40 09/05/19 17:00 79 27 136/62 (86) 100 09/05/19 16:00 Mechanical Ventilator Mechanical Ventilator Mechanical Ventilator Mechanical Ventilator 09/05/19 16:00 40 09/05/19 16:00 97.8 82 27 137/61 (86) 100 09/05/19 16:00 81 09/05/19 15:27 84 10 100 Mechanical Ventilator 40 85 20 40 09/05/19 15:00 92 25 106/53 (70) 100 09/05/19 14:00 92 24 150/61 (90) 100 09/05/19 13:13 93 21 40 09/05/19 13:05 88 26 108/80 (89) 100 09/05/19 13:00 82 19 176/146 (156) 100 09/05/19 12:44 164/89 09/05/19 12:00 Mechanical Ventilator Mechanical Ventilator Mechanical Ventilator Mechanical Ventilator 09/05/19 12:00 86 09/05/19 12:00 40 09/05/19 12:00 98.9 90 24 139/116 (124) 97 09/05/19 11:11 85 18 100 Mechanical Ventilator 40 88 18 40 09/05/19 11:00 86 21 168/123 (138) 100 09/05/19 10:00 81 18 125/90 (102) 100 09/05/19 09:20 70 18 40 09/05/19 09:09 72 139/60 09/05/19 09:00 71 19 139/60 (86) 100 09/05/19 08:00 97.9 73 21 140/58 (85) 100 09/05/19 08:00 Mechanical Ventilator Mechanical Ventilator Mechanical Ventilator Mechanical Ventilator 09/05/19 08:00 75 09/05/19 08:00 40 09/05/19 07:47 98 09/05/19 07:11 73 18 40 09/05/19 07:00 76 20 142/87 (105) 100 09/05/19 06:30 80 18 09/05/19 06:02 138/57 09/05/19 06:00 78 28 137/63 (87) 100 09/05/19 05:15 72 18 40 09/05/19 05:00 84 28 138/57 (84) 100 09/05/19 05:00 40 09/05/19 04:02 82 18 100 Mechanical Ventilator 40 09/05/19 04:00 98.4 85 28 141/50 (80) 100 09/05/19 04:00 Mechanical Ventilator Mechanical Ventilator Mechanical Ventilator Mechanical Ventilator 09/05/19 04:00 71 09/05/19 03:47 84 18 Mechanical Ventilator 40 40 09/05/19 03:00 90 32 139/52 (81) 100 09/05/19 02:00 91 28 138/42 (74) 100 09/05/19 01:07 92 21 40 09/05/19 01:00 92 23 140/39 (72) 99 09/05/19 00:00 98.0 87 29 145/70 (95) 100 09/05/19 00:00 Mechanical Ventilator Mechanical Ventilator Mechanical Ventilator Mechanical Ventilator 09/05/19 00:00 40 09/05/19 00:00 80 09/04/19 23:37 155/70 09/04/19 23:20 78 18 100 Mechanical Ventilator 40 09/04/19 23:05 77 18 Mechanical Ventilator 40 40 09/04/19 23:00 78 20 146/58 (87) 100 09/04/19 22:00 77 19 140/61 (87) 100 09/04/19 21:00 76 18 132/65 (87) 100 09/04/19 20:57 75 18 40 09/04/19 20:00 98.6 77 18 138/60 (86) 100 09/04/19 20:00 79 09/04/19 20:00 Mechanical Ventilator Mechanical Ventilator Mechanical Ventilator Mechanical Ventilator Intake and Output 09/05/19 09/06/19 19:00 07:00 Intake Total 605 ml 350 ml Output Total 190 ml 85 ml Balance 415 ml 265 ml Intake Free Water 150 ml Tube Feeding 455 ml 350 ml Output Urine Total 190 ml 75 ml Chest Tube Drainage Total 0 ml 10 ml # Bowel Movements 2 2 Labs Test 09/04/19 05:30 09/05/19 04:45 09/06/19 03:45 White Blood Count 5.9 K/UL (4.8-10.8) 5.0 K/UL (4.8-10.8) 7.0 K/UL (4.8-10.8) Red Blood Count 3.36 M/UL (4.20-5.40) 3.25 M/UL (4.20-5.40) 3.28 M/UL (4.20-5.40) Hemoglobin 9.9 G/DL (12.0-16.0) 9.7 G/DL (12.0-16.0) 9.8 G/DL (12.0-16.0) Hematocrit 29.5 % (37.0-47.0) 28.8 % (37.0-47.0) 29.2 % (37.0-47.0) Mean Corpuscular Volume 88 FL (80-99) 89 FL (80-99) 89 FL (80-99) Mean Corpuscular Hemoglobin 29.6 PG (27.0-31.0) 29.9 PG (27.0-31.0) 29.9 PG (27.0-31.0) Mean Corpuscular Hemoglobin Concent 33.7 G/DL (32.0-36.0) 33.7 G/DL (32.0-36.0) 33.7 G/DL (32.0-36.0) Red Cell Distribution Width 14.4 % (11.6-14.8) 14.0 % (11.6-14.8) 14.3 % (11.6-14.8) Platelet Count 284 K/UL (150-450) 258 K/UL (150-450) 259 K/UL (150-450) Mean Platelet Volume 4.8 FL (6.5-10.1) 4.6 FL (6.5-10.1) 5.0 FL (6.5-10.1) Neutrophils (%) (Auto) 65.4 % (45.0-75.0) 69.6 % (45.0-75.0) 70.9 % (45.0-75.0) Lymphocytes (%) (Auto) 25.1 % (20.0-45.0) 23.3 % (20.0-45.0) 20.9 % (20.0-45.0) Monocytes (%) (Auto) 6.3 % (1.0-10.0) 4.9 % (1.0-10.0) 5.5 % (1.0-10.0) Eosinophils (%) (Auto) 2.9 % (0.0-3.0) 1.5 % (0.0-3.0) 2.1 % (0.0-3.0) Basophils (%) (Auto) 0.4 % (0.0-2.0) 0.7 % (0.0-2.0) 0.6 % (0.0-2.0) Sodium Level 139 MMOL/L (136-145) 144 MMOL/L (136-145) 142 MMOL/L (136-145) Potassium Level 3.7 MMOL/L (3.5-5.1) 3.4 MMOL/L (3.5-5.1) 3.4 MMOL/L (3.5-5.1) Chloride Level 102 MMOL/L (98-107) 105 MMOL/L (98-107) 106 MMOL/L (98-107) Carbon Dioxide Level 26 MMOL/L (21-32) 29 MMOL/L (21-32) 27 MMOL/L (21-32) Anion Gap 11 mmol/L (5-15) 10 mmol/L (5-15) 9 mmol/L (5-15) Blood Urea Nitrogen 48 mg/dL (7-18) 27 mg/dL (7-18) 32 mg/dL (7-18) Creatinine 3.7 MG/DL (0.55-1.30) 2.6 MG/DL (0.55-1.30) 2.9 MG/DL (0.55-1.30) Estimat Glomerular Filtration Rate 11.8 mL/min (>60) 17.7 mL/min (>60) 15.7 mL/min (>60) Glucose Level 65 MG/DL (74-106) 126 MG/DL (74-106) 145 MG/DL (74-106) Uric Acid 6.9 MG/DL (2.6-7.2) Calcium Level 9.3 MG/DL (8.5-10.1) 8.8 MG/DL (8.5-10.1) 8.9 MG/DL (8.5-10.1) Phosphorus Level 4.5 MG/DL (2.5-4.9) 2.7 MG/DL (2.5-4.9) Magnesium Level 2.5 MG/DL (1.8-2.4) 2.1 MG/DL (1.8-2.4) Total Bilirubin 0.5 MG/DL (0.2-1.0) 0.4 MG/DL (0.2-1.0) 0.4 MG/DL (0.2-1.0) Aspartate Amino Transf (AST/SGOT) 32 U/L (15-37) 23 U/L (15-37) 20 U/L (15-37) Alanine Aminotransferase (ALT/SGPT) 18 U/L (12-78) 13 U/L (12-78) 14 U/L (12-78) Alkaline Phosphatase 105 U/L (46-116) 135 U/L (46-116) 146 U/L (46-116) C-Reactive Protein, Quantitative 18.2 mg/dL (0.00-0.90) Pro-B-Type Natriuretic Peptide > 59283 pg/mL (0-125) > 46684 pg/mL (0-125) Total Protein 6.1 G/DL (6.4-8.2) 5.8 G/DL (6.4-8.2) 6.0 G/DL (6.4-8.2) Albumin 1.9 G/DL (3.4-5.0) 2.1 G/DL (3.4-5.0) 2.0 G/DL (3.4-5.0) Globulin 4.2 g/dL 3.7 g/dL 4.0 g/dL Albumin/Globulin Ratio 0.5 (1.0-2.7) 0.6 (1.0-2.7) 0.5 (1.0-2.7) Thyroid Stimulating Hormone (TSH) 6.983 uiU/mL (0.358-3.740) Free Thyroxine 1.14 NG/DL (0.76-1.46) Height (Feet): 5 Height (Inches): 4.00 Weight (Pounds): 112 Objective gen: nad pulm: on trach+ / vent, decreased breath sounds left, chest tube+ cv: rrr, no gmr abd: sfot, nt, nd ++ gt ext: no cce Gio Rob MD Sep 06, 2019 19:43
--- NOTE | 2019-09-06 19:51 | General Progress Note ---
Assessment/Plan Status: stable, not improved, unchanged, deteriorating Assessment/Plan: Assessment - Severe ulcerative esophagitis - Resp failure - s/p Chest tube - thrombocytopenia --> resolved - Renal failure - aspiration risk --> s/p PEG - anemia - bradycardia - Poor prognosis Recommendations - Continue TF - water flushes - elevate HOB - monitor H&H - await trach Subjective Allergies: Coded Allergies: VANCOMYCIN (Unverified Allergy, Unknown, 08/02/19) Subjective Above noted No events overnight d/w RN and surgery trach planned Objective Last 24 Hour Vital Signs Date Time Temp Pulse Resp B/P (MAP) Pulse Ox O2 Delivery O2 Flow Rate FiO2 09/06/19 19:32 91 25 100 Mechanical Ventilator 40 93 19 40 09/06/19 19:00 90 24 134/64 (87) 92 09/06/19 18:00 91 23 147/69 (95) 100 09/06/19 17:00 97.8 86 26 149/66 (93) 100 09/06/19 16:38 76 22 100 Mechanical Ventilator 40 76 18 40 09/06/19 16:00 78 09/06/19 16:00 78 19 142/63 (89) 100 09/06/19 16:00 Mechanical Ventilator Mechanical Ventilator Mechanical Ventilator Mechanical Ventilator 09/06/19 16:00 40 09/06/19 15:05 76 18 40 09/06/19 15:00 76 17 136/66 (89) 100 09/06/19 14:00 80 20 141/65 (90) 100 09/06/19 13:25 93 22 40 09/06/19 13:00 85 19 140/65 (90) 100 09/06/19 12:00 84 09/06/19 12:00 79 19 137/62 (87) 100 09/06/19 12:00 40 09/06/19 12:00 Mechanical Ventilator Mechanical Ventilator Mechanical Ventilator Mechanical Ventilator 09/06/19 11:55 81 18 100 Mechanical Ventilator 40 80 18 40 09/06/19 11:53 81 18 100 Mechanical Ventilator 40 80 18 40 09/06/19 11:00 84 18 140/64 (89) 100 09/06/19 10:20 98 09/06/19 10:00 80 22 137/65 (89) 100 09/06/19 09:10 81 18 40 09/06/19 09:00 79 18 135/62 (86) 100 09/06/19 09:00 62 120/62 09/06/19 08:03 76 18 100 Mechanical Ventilator 40 77 18 40 09/06/19 08:00 40 09/06/19 08:00 79 09/06/19 08:00 100.4 76 18 134/65 (88) 100 09/06/19 08:00 Mechanical Ventilator Mechanical Ventilator Mechanical Ventilator Mechanical Ventilator 09/06/19 07:00 90 24 151/95 (113) 100 09/06/19 06:30 82 18 09/06/19 06:04 142/63 09/06/19 06:00 82 22 142/63 (89) 100 09/06/19 05:09 83 21 40 09/06/19 05:00 80 21 142/63 (89) 100 09/06/19 04:00 79 09/06/19 04:00 Mechanical Ventilator Mechanical Ventilator Mechanical Ventilator Mechanical Ventilator 09/06/19 04:00 40 09/06/19 04:00 97.8 79 20 141/61 (87) 100 09/06/19 03:13 76 19 100 Mechanical Ventilator 40 78 18 40 09/06/19 03:00 78 23 137/64 (88) 100 09/06/19 02:00 88 23 144/59 (87) 100 09/06/19 01:25 99 20 40 09/06/19 01:00 97 18 153/71 (98) 100 09/06/19 00:22 147/97 09/06/19 00:00 Mechanical Ventilator Mechanical Ventilator Mechanical Ventilator Mechanical Ventilator 09/06/19 00:00 88 09/06/19 00:00 40 09/06/19 00:00 98.4 84 27 144/62 (89) 100 09/05/19 23:00 92 21 116/87 (97) 100 09/05/19 22:30 89 20 40 09/05/19 22:30 89 20 100 Mechanical Ventilator 40 09/05/19 22:00 88 23 145/98 (114) 100 09/05/19 21:15 91 21 40 09/05/19 21:00 89 26 100/82 (88) 100 09/05/19 20:00 98.3 89 22 130/72 (91) 100 09/05/19 20:00 Mechanical Ventilator Mechanical Ventilator Mechanical Ventilator Mechanical Ventilator 3/23/20 20:00 89 09/05/19 20:00 40 Intake and Output 09/05/19 09/06/19 19:00 07:00 Intake Total 605 ml 350 ml Output Total 190 ml 85 ml Balance 415 ml 265 ml Intake Free Water 150 ml Tube Feeding 455 ml 350 ml Output Urine Total 190 ml 75 ml Chest Tube Drainage Total 0 ml 10 ml # Bowel Movements 2 2 Laboratory Tests 09/06/19 03:45: White Blood Count 7.0, Red Blood Count 3.28L, Hemoglobin 9.8L, Hematocrit 29.2L , Mean Corpuscular Volume 89, Mean Corpuscular Hemoglobin 29.9, Mean Corpuscular Hemoglobin Concent 33.7, Red Cell Distribution Width 14.3, Platelet Count 259, Mean Platelet Volume 5.0L, Neutrophils (%) (Auto) 70.9, Lymphocytes ( %) (Auto) 20.9, Monocytes (%) (Auto) 5.5, Eosinophils (%) (Auto) 2.1, Basophils (%) (Auto) 0.6, Sodium Level 142, Potassium Level 3.4L, Chloride Level 106, Carbon Dioxide Level 27, Anion Gap 9, Blood Urea Nitrogen 32H, Creatinine 2.9H, Estimat Glomerular Filtration Rate 15.7, Glucose Level 145H, Calcium Level 8.9, Phosphorus Level 2.7, Magnesium Level 2.1, Total Bilirubin 0.4, Aspartate Amino Transf (AST/SGOT) 20, Alanine Aminotransferase (ALT/SGPT) 14, Alkaline Phosphatase 146H, Pro-B-Type Natriuretic Peptide > 65016R, Total Protein 6.0L, Albumin 2.0L, Globulin 4.0, Albumin/Globulin Ratio 0.5L Height (Feet): 5 Height (Inches): 4.00 Weight (Pounds): 112 Objective Debilitated frail woman NCAT (+) ETT supple scattered ronchi, (+) CT RR abd soft ND NT, (+) GT no edema Cristy Elizondo MD Sep 06, 2019 19:51
[2019-09-07] VITALS (24 sets, daily range): BP systolic 115–166; BP diastolic 62–124
[2019-09-07] MEDS: Albuterol/Ipratropium 3ml neb HHN SCH ×6 (02:49→23:15)
--- NOTE | 2019-09-07 03:15 | Progress Note ---
DATE: 09/06/2019 CARDIOLOGY PROGRESS NOTE SUBJECTIVE: Weaning efforts ongoing. Ventilator support continues via oral to endotracheal tube. Monitored rhythm sinus. No bradycardic episodes noted. OBJECTIVE: VITAL SIGNS: Blood pressure 136/66, pulse 76, and respirations 17. LUNGS: Rales and rhonchi on the right. Chest tube in place. CARDIAC: Regular rhythm and rate. Normal S1 and S2. ABDOMEN: Soft. EXTREMITIES: Trace edema. IMPRESSION: 1. Pneumothorax. 2. Respiratory failure. 3. Anemia. 4. End-stage renal disease. 5. Sinus bradycardia. 6. Hypertensive heart disease. 7. Acute on chronic diastolic congestive heart failure. PLAN: 1. Tracheostomy for prolonged ventilator management. 2. Hemodialysis with ultrafiltration. 3. Weaning efforts. 4. Chest tube management. 5. ____ surgeon. 6. Thyroid replacement. 7. Titrate antihypertensive regimen based on clinical parameters. 8. Remains with serious condition and grave prognosis. Abel Stubbs M.D. DR: CHANDU JOB#: [id number] CC:
[2019-09-07] MEDS: HydrALAZINE 25mg tab NG SCH ×4 (05:48→23:36)
--- NOTE | 2019-09-07 08:38 | Hematology/Onc Progress Note ---
Assessment/Plan Assessment/Plan # Thrombocytopenia - potential causes multifactorial, evaluate liver and viral etiologies to begin, in this case due to sepsis with septic shock also with cirrhosis and liver disease --> Hep panel and HIV ordered -> neg --> US abd to evaluate for cirrhosis and hsm ordered --> reviewed --> Peripheral smear ordered to evaluate for blasts /schistocytes --> abx and other meds have been reviewed --> ok for ppx if plt >50k w/ either heparin or lovenox --> Transfuse if Plt < 20k and fever, or if Plt < 10k without fever --> okay for permacath change once plt better--> for 08/14 --> plt trend: 43-->83-->237k-->292-->341-->315-->388 -->444-->530 # Anemia of chronic disease due to underlying chronic medical issues, multifactorial v Gi bleed --> Anemia workup has been ordered, rule out gi bleed --> No evidence of hemolysis is noted, peripheral smear has been reviewed. --> Hgb goal >7. Transfuse prn. --> Epogen has been started --> HOLD OFF IRON ferritin is >1000 --> Medications have been reviewed --> low threshold for gi evaluation in case has occult + --> hgb 9-->6.7-->9.2 -->10.5-->10.6 -->10.7-->10-->10.5-->9.8-->10.4-->9.5--> 3.6-->9.6-->9.7 --> blood tx: 08/11, 08/31 --> CT Chest pendig r/o hemothorax --> does show Confirmation of a large left hemothorax. Complete atelectasis of the left lower lobe and partial left upper lobe atelectasis demonstrated. Mild rightward shift of the heart and mediastinum. # Sepsis with shock. --> abx as per id, recs noted --> pressors as needed # Healthcare-associated pneumonia. --> recs reviewed --> abx: jung/micafungin-->jung --> 08/24 us chest: moderate left pleural effusion # Severe protein-calorie malnutrition. --> nutritional support # End-stage renal disease --> had as renal hd --> with permacath # History of hypertension. --> per cards, now with Bradycardia. # resp failure s/p vent/trach # HypoThyroid # Ngt feedings # Dvt ppx scd's The timing of this note does not necessarily reflect the time of the patient was seen. Greatly appreciate consultation. Subjective Constitutional: Denies: no symptoms, chills, fever, malaise, weakness, other HEENT: Denies: no symptoms, eye pain, blurred vision, tearing, double vision, ear pain, ear discharge, nose pain, nose congestion, throat pain, throat swelling, mouth pain, mouth swelling, other Cardiovascular: Denies: no symptoms, chest pain, edema, irregular heart rate, lightheadedness, palpitations, syncope, other Respiratory: Denies: no symptoms, cough, shortness of breath, SOB with excertion, SOB at rest, sputum, wheezing, other Gastrointestinal/Abdominal: Denies: no symptoms, abdomen distended, abdominal pain, black stools, tarry stools, blood in stool, constipated, diarrhea, difficulty swallowing, nausea, poor appetite, poor fluid intake, rectal bleeding , vomiting, other Genitourinary: Denies: no symptoms, burning, discharge, frequency, flank pain, hematuria, incontinence, pain, urgency, other Neurologic/Psychiatric: Denies: no symptoms, anxiety, depressed, emotional problems, headache, numbness, paresthesia, pre-existing deficit, seizure, tingling, tremors, weakness, other Hematologic/Lymphatic: Denies: no symptoms, anemia, easy bleeding, easy bruising, adenopathy, other Allergies: Coded Allergies: VANCOMYCIN (Unverified Allergy, Unknown, 08/02/19) Subjective 08/11: no bleeding or chills, labs reviewed, no major bleeding, plt less than 50k 08/12: icu, s/p blood, hgb improved to 9.2, 08/14: icu, pending consent for thora and permacath, labs reviewed 08/15: new permacath placed, no bleeding, for hd, plt much improved, started lovenox sq 08/16: ett to be adjusted, bp on high end, micafungin started, possible bronch 08/17: weaning as per pulm, no events otherwise, labs noted 08/18: no events no bleeding, remains confused on vent, for hd 08/20: icu, failed to wean, labs reviewed, jung 08/21: resting in bed, no overnight events, labs reviewed 08/22: awake, confused, restraints, no overnight events 08/23: no events, no bleeding, on ppi bid 08/24: icu, failed to wean, labs reviewed 08/25: no overnight events, us chest, restraints, afebrile 08/26 difficult in weaning, nad, seen by surg, pulm labs noted 08/27 awake on restraints, thoracentesis for am, labs reviewed 08/29 no bleeding, no night sweats, no major changes, on ppi bid 08/30 no major events, remains on vent, no bleeding, dw pcp 08/31 hgb dropped to 3.6, has been transfused with prbc, in icu, dw Rn, ct chest pend 09/01 no major events, no bleeding, labs noted, hgb remains low, hgb 9.6 09/03 lethargic, left chest tube dry/intact, off abx, vent 09/04 remains on a vent, synthroid, labs reviewed 09/05 awake and alert, no acute events, hgb 9.8, no new orders 09/06 no bleeding or chills, labs noted, no major events overnight, david rn Objective Objective Current Medications Medications (Trade) Dose Ordered Sig/Javier Route PRN Reason Start Time Stop Time Status Last Admin Dose Admin Acetaminophen (Tylenol) 650 mg Q4H PRN GT Mild Pain/Temp > 100.5 09/03/19 07:00 10/03/19 06:59 09/03/19 08:36 Acetylcysteine (Mucomyst) 100 mg Q4HRT [facility] 08/31/19 19:00 11/29/19 18:59 09/07/19 07:41 Albuterol/ Ipratropium (Albuterol/ Ipratropium) 3 ml Q4HRT [facility] 09/05/19 23:00 09/10/19 22:59 09/07/19 07:41 Amlodipine Besylate (Norvasc) 5 mg BID NG 08/23/19 01:45 09/22/19 01:44 09/05/19 18:18 Atropine Sulfate (Atropine) 1 mg Q4H PRN IVP Per rx protocol 08/13/19 08:30 09/12/19 08:29 Chlorhexidine Gluconate (Nae-Hex 2%) 1 applic DAILY@2000 TOPIC 08/15/19 20:00 09/14/19 19:59 09/06/19 19:29 Dextrose (Dextrose 50%) 25 ml Q30M PRN IV Hypoglycemia 09/02/19 06:15 12/01/19 06:14 09/04/19 12:11 Dextrose (Dextrose 50%) 50 ml Q30M PRN IV Hypoglycemia 09/02/19 06:15 12/01/19 06:14 Diphenhydramine HCl (Benadryl) 50 mg Q4H PRN IVP Itching 08/09/19 14:30 09/08/19 14:29 09/05/19 06:12 Epoetin Thomas (Epoetin Thomas(ESRD on dialysis)) 4,000 unit SUBQ 08/12/19 21:00 09/11/19 20:59 09/05/19 20:40 Hydralazine HCl (Apresoline) 10 mg Q4H PRN IV For High Blood Pressure 08/18/19 12:44 09/17/19 12:43 09/01/19 20:27 Hydralazine HCl (Apresoline) 25 mg Q6HR NG 08/23/19 06:00 09/22/19 05:59 09/07/19 05:48 Hydromorphone HCl (Dilaudid) 0.5 mg Q4H PRN IVP Pain Scale (6-10) 09/03/19 07:00 09/10/19 06:59 09/05/19 03:04 Lansoprazole (Prevacid) 30 mg BID GT 08/19/19 09:00 09/18/19 08:59 09/06/19 18:27 Levothyroxine Sodium (Synthroid) 50 mcg DAILY@0630 ORAL 08/25/19 06:30 09/24/19 06:29 09/07/19 05:48 Metoclopramide HCl (Reglan) 5 mg Q8H PRN IVP Nausea & Vomiting 08/09/19 12:39 3/26/20 12:38 Midazolam HCl 100 ml @ 0 mls/hr Q24H PRN IV Agitation 09/05/19 18:15 09/12/19 18:14 Last 24 Hour Vital Signs Date Time Temp Pulse Resp B/P (MAP) Pulse Ox O2 Delivery O2 Flow Rate FiO2 09/07/19 07:27 68 18 100 Mechanical Ventilator 40 70 18 40 09/07/19 07:00 73 23 141/67 (91) 97 09/07/19 06:30 73 18 09/07/19 06:00 71 25 143/68 (93) 100 09/07/19 05:48 146/70 09/07/19 05:00 82 25 142/93 (109) 100 09/07/19 04:51 79 21 40 09/07/19 04:00 97.3 75 29 163/75 (104) 100 09/07/19 04:00 40 09/07/19 04:00 Mechanical Ventilator Mechanical Ventilator Mechanical Ventilator Mechanical Ventilator 09/07/19 03:15 80 09/07/19 03:00 77 23 136/68 (90) 100 09/07/19 02:49 80 18 100 Mechanical Ventilator 40 77 18 40 09/07/19 02:00 80 23 143/73 (96) 94 09/07/19 01:00 86 25 160/124 (136) 100 09/07/19 00:37 88 24 40 09/07/19 00:00 Mechanical Ventilator Mechanical Ventilator Mechanical Ventilator Mechanical Ventilator 09/07/19 00:00 98.7 80 40 143/67 (92) 100 09/07/19 00:00 40 09/06/19 23:13 157/79 09/06/19 23:08 78 09/06/19 23:00 83 24 157/79 (105) 100 09/06/19 22:32 79 18 98 Mechanical Ventilator 40 82 18 40 09/06/19 22:00 83 22 139/65 (89) 95 09/06/19 21:27 83 18 100 Mechanical Ventilator 40 93 19 40 09/06/19 21:00 88 28 143/65 (91) 100 09/06/19 20:00 99.8 115 35 143/65 (91) 100 09/06/19 20:00 40 09/06/19 20:00 Mechanical Ventilator Mechanical Ventilator Mechanical Ventilator Mechanical Ventilator 09/06/19 19:53 115 09/06/19 19:32 91 25 100 Mechanical Ventilator 40 93 19 40 09/06/19 19:00 90 24 134/64 (87) 92 09/06/19 18:00 91 23 147/69 (95) 100 09/06/19 17:00 97.8 86 26 149/66 (93) 100 09/06/19 16:38 76 22 100 Mechanical Ventilator 40 76 18 40 09/06/19 16:00 78 09/06/19 16:00 78 19 142/63 (89) 100 09/06/19 16:00 Mechanical Ventilator Mechanical Ventilator Mechanical Ventilator Mechanical Ventilator 09/06/19 16:00 40 09/06/19 15:05 76 18 40 09/06/19 15:00 76 17 136/66 (89) 100 09/06/19 14:00 80 20 141/65 (90) 100 09/06/19 13:25 93 22 40 09/06/19 13:00 85 19 140/65 (90) 100 09/06/19 12:00 84 09/06/19 12:00 79 19 137/62 (87) 100 09/06/19 12:00 40 09/06/19 12:00 Mechanical Ventilator Mechanical Ventilator Mechanical Ventilator Mechanical Ventilator 09/06/19 11:55 81 18 100 Mechanical Ventilator 40 80 18 40 09/06/19 11:53 81 18 100 Mechanical Ventilator 40 80 18 40 09/06/19 11:00 84 18 140/64 (89) 100 09/06/19 10:20 98 09/06/19 10:00 80 22 137/65 (89) 100 09/06/19 09:10 81 18 40 09/06/19 09:00 79 18 135/62 (86) 100 09/06/19 09:00 62 120/62 09/06/19 08:03 76 18 100 Mechanical Ventilator 40 77 18 40 09/06/19 08:00 40 09/06/19 08:00 79 09/06/19 08:00 100.4 76 18 134/65 (88) 100 09/06/19 08:00 Mechanical Ventilator Mechanical Ventilator Mechanical Ventilator Mechanical Ventilator 09/06/19 07:00 90 24 151/95 (113) 100 09/06/19 06:30 82 18 09/06/19 06:04 142/63 09/06/19 06:00 82 22 142/63 (89) 100 09/06/19 05:09 83 21 40 09/06/19 05:00 80 21 142/63 (89) 100 09/06/19 04:00 79 09/06/19 04:00 Mechanical Ventilator Mechanical Ventilator Mechanical Ventilator Mechanical Ventilator 09/06/19 04:00 40 09/06/19 04:00 97.8 79 20 141/61 (87) 100 09/06/19 03:13 76 19 100 Mechanical Ventilator 40 78 18 40 09/06/19 03:00 78 23 137/64 (88) 100 09/06/19 02:00 88 23 144/59 (87) 100 09/06/19 01:25 99 20 40 09/06/19 01:00 97 18 153/71 (98) 100 09/06/19 00:22 147/97 09/06/19 00:00 Mechanical Ventilator Mechanical Ventilator Mechanical Ventilator Mechanical Ventilator 09/06/19 00:00 88 09/06/19 00:00 40 09/06/19 00:00 98.4 84 27 144/62 (89) 100 09/05/19 23:00 92 21 116/87 (97) 100 09/05/19 22:30 89 20 40 09/05/19 22:30 89 20 100 Mechanical Ventilator 40 09/05/19 22:00 88 23 145/98 (114) 100 09/05/19 21:15 91 21 40 09/05/19 21:00 89 26 100/82 (88) 100 09/05/19 20:00 98.3 89 22 130/72 (91) 100 09/05/19 20:00 Mechanical Ventilator Mechanical Ventilator Mechanical Ventilator Mechanical Ventilator 09/05/19 20:00 89 09/05/19 20:00 40 09/05/19 19:07 89 23 40 09/05/19 19:00 94 30 134/84 (101) 100 09/05/19 18:18 88 147/70 09/05/19 18:18 147/70 09/05/19 18:00 90 25 147/70 (95) 100 09/05/19 17:13 81 19 40 09/05/19 17:00 79 27 136/62 (86) 100 09/05/19 16:00 Mechanical Ventilator Mechanical Ventilator Mechanical Ventilator Mechanical Ventilator 09/05/19 16:00 40 09/05/19 16:00 97.8 82 27 137/61 (86) 100 09/05/19 16:00 81 09/05/19 15:27 84 10 100 Mechanical Ventilator 40 85 20 40 09/05/19 15:00 92 25 106/53 (70) 100 09/05/19 14:00 92 24 150/61 (90) 100 09/05/19 13:13 93 21 40 09/05/19 13:05 88 26 108/80 (89) 100 09/05/19 13:00 82 19 176/146 (156) 100 09/05/19 12:44 164/89 09/05/19 12:00 Mechanical Ventilator Mechanical Ventilator Mechanical Ventilator Mechanical Ventilator 09/05/19 12:00 86 09/05/19 12:00 40 09/05/19 12:00 98.9 90 24 139/116 (124) 97 09/05/19 11:11 85 18 100 Mechanical Ventilator 40 88 18 40 09/05/19 11:00 86 21 168/123 (138) 100 09/05/19 10:00 81 18 125/90 (102) 100 09/05/19 09:20 70 18 40 09/05/19 09:09 72 139/60 09/05/19 09:00 71 19 139/60 (86) 100 Intake and Output 09/06/19 09/07/19 19:00 07:00 Intake Total 520 ml 205 ml Output Total 55 ml 148 ml Balance 465 ml 57 ml Intake Free Water 100 ml Tube Feeding 420 ml 175 ml Other 30 ml Output Urine Total 55 ml 145 ml Chest Tube Drainage Total 3 ml # Bowel Movements 3 2 Labs Test 09/05/19 04:45 09/06/19 03:45 White Blood Count 5.0 K/UL (4.8-10.8) 7.0 K/UL (4.8-10.8) Red Blood Count 3.25 M/UL (4.20-5.40) 3.28 M/UL (4.20-5.40) Hemoglobin 9.7 G/DL (12.0-16.0) 9.8 G/DL (12.0-16.0) Hematocrit 28.8 % (37.0-47.0) 29.2 % (37.0-47.0) Mean Corpuscular Volume 89 FL (80-99) 89 FL (80-99) Mean Corpuscular Hemoglobin 29.9 PG (27.0-31.0) 29.9 PG (27.0-31.0) Mean Corpuscular Hemoglobin Concent 33.7 G/DL (32.0-36.0) 33.7 G/DL (32.0-36.0) Red Cell Distribution Width 14.0 % (11.6-14.8) 14.3 % (11.6-14.8) Platelet Count 258 K/UL (150-450) 259 K/UL (150-450) Mean Platelet Volume 4.6 FL (6.5-10.1) 5.0 FL (6.5-10.1) Neutrophils (%) (Auto) 69.6 % (45.0-75.0) 70.9 % (45.0-75.0) Lymphocytes (%) (Auto) 23.3 % (20.0-45.0) 20.9 % (20.0-45.0) Monocytes (%) (Auto) 4.9 % (1.0-10.0) 5.5 % (1.0-10.0) Eosinophils (%) (Auto) 1.5 % (0.0-3.0) 2.1 % (0.0-3.0) Basophils (%) (Auto) 0.7 % (0.0-2.0) 0.6 % (0.0-2.0) Sodium Level 144 MMOL/L (136-145) 142 MMOL/L (136-145) Potassium Level 3.4 MMOL/L (3.5-5.1) 3.4 MMOL/L (3.5-5.1) Chloride Level 105 MMOL/L (98-107) 106 MMOL/L (98-107) Carbon Dioxide Level 29 MMOL/L (21-32) 27 MMOL/L (21-32) Anion Gap 10 mmol/L (5-15) 9 mmol/L (5-15) Blood Urea Nitrogen 27 mg/dL (7-18) 32 mg/dL (7-18) Creatinine 2.6 MG/DL (0.55-1.30) 2.9 MG/DL (0.55-1.30) Estimat Glomerular Filtration Rate 17.7 mL/min (>60) 15.7 mL/min (>60) Glucose Level 126 MG/DL (74-106) 145 MG/DL (74-106) Calcium Level 8.8 MG/DL (8.5-10.1) 8.9 MG/DL (8.5-10.1) Total Bilirubin 0.4 MG/DL (0.2-1.0) 0.4 MG/DL (0.2-1.0) Aspartate Amino Transf (AST/SGOT) 23 U/L (15-37) 20 U/L (15-37) Alanine Aminotransferase (ALT/SGPT) 13 U/L (12-78) 14 U/L (12-78) Alkaline Phosphatase 135 U/L (46-116) 146 U/L (46-116) Total Protein 5.8 G/DL (6.4-8.2) 6.0 G/DL (6.4-8.2) Albumin 2.1 G/DL (3.4-5.0) 2.0 G/DL (3.4-5.0) Globulin 3.7 g/dL 4.0 g/dL Albumin/Globulin Ratio 0.6 (1.0-2.7) 0.5 (1.0-2.7) Thyroid Stimulating Hormone (TSH) 6.983 uiU/mL (0.358-3.740) Free Thyroxine 1.14 NG/DL (0.76-1.46) Phosphorus Level 2.7 MG/DL (2.5-4.9) Magnesium Level 2.1 MG/DL (1.8-2.4) Pro-B-Type Natriuretic Peptide > 51485 pg/mL (0-125) Height (Feet): 5 Height (Inches): 4.00 Weight (Pounds): 112 Objective gen: nad pulm: on trach+ / vent, decreased breath sounds left, chest tube+ cv: rrr, no gmr abd: sfot, nt, nd ++ gt ext: no cce Gio Rob MD Sep 07, 2019 08:38
--- NOTE | 2019-09-07 08:48 | General Progress Note ---
Assessment/Plan Problem List: (1) Hypothyroid ICD Codes: E03.9 - Hypothyroidism, unspecified SNOMED: 06018656 (2) ESRD (end stage renal disease) on dialysis ICD Codes: N18.6 - End stage renal disease; Z99.2 - Dependence on renal dialysis SNOMED: 316804178 (3) Hypotension ICD Codes: I95.9 - Hypotension, unspecified SNOMED: 60468229 Qualifiers: Qualified Codes: I95.3 - Hypotension of hemodialysis (4) Pneumonia ICD Codes: J18.9 - Pneumonia, unspecified organism SNOMED: 476869932 Qualifiers: Qualified Codes: J18.9 - Pneumonia, unspecified organism (5) Diabetes mellitus ICD Codes: E11.9 - Type 2 diabetes mellitus without complications SNOMED: 35882944 Status: stable, not improved, unchanged, deteriorating Assessment/Plan: TSH improved and free T4 is normal continue Levothyroxine IV 50 mcg daily continue glucose monitoring without insulin coverage hypoglycemia protocol in order Subjective ROS Limited/Unobtainable: Yes Allergies: Coded Allergies: VANCOMYCIN (Unverified Allergy, Unknown, 08/02/19) Subjective events noted interval notes reviewed on vent in ICU glucose values are stable Item Value Date Time Bedside Blood Glucose 124 mg/dl H 09/07/19 0600 Bedside Blood Glucose 197 mg/dl H 09/07/19 0000 Bedside Blood Glucose 122 mg/dl H 09/06/19 1800 Bedside Blood Glucose 119 mg/dl 09/06/19 1200 Bedside Blood Glucose 143 mg/dl H 09/06/19 0600 Objective Last 24 Hour Vital Signs Date Time Temp Pulse Resp B/P (MAP) Pulse Ox O2 Delivery O2 Flow Rate FiO2 09/07/19 07:27 68 18 100 Mechanical Ventilator 40 70 18 40 09/07/19 07:00 73 23 141/67 (91) 97 09/07/19 06:30 73 18 09/07/19 06:00 71 25 143/68 (93) 100 09/07/19 05:48 146/70 09/07/19 05:00 82 25 142/93 (109) 100 09/07/19 04:51 79 21 40 09/07/19 04:00 97.3 75 29 163/75 (104) 100 09/07/19 04:00 40 09/07/19 04:00 Mechanical Ventilator Mechanical Ventilator Mechanical Ventilator Mechanical Ventilator 09/07/19 03:15 80 09/07/19 03:00 77 23 136/68 (90) 100 09/07/19 02:49 80 18 100 Mechanical Ventilator 40 77 18 40 09/07/19 02:00 80 23 143/73 (96) 94 09/07/19 01:00 86 25 160/124 (136) 100 09/07/19 00:37 88 24 40 09/07/19 00:00 Mechanical Ventilator Mechanical Ventilator Mechanical Ventilator Mechanical Ventilator 09/07/19 00:00 98.7 80 40 143/67 (92) 100 09/07/19 00:00 40 09/06/19 23:13 157/79 09/06/19 23:08 78 09/06/19 23:00 83 24 157/79 (105) 100 09/06/19 22:32 79 18 98 Mechanical Ventilator 40 82 18 40 09/06/19 22:00 83 22 139/65 (89) 95 09/06/19 21:27 83 18 100 Mechanical Ventilator 40 93 19 40 09/06/19 21:00 88 28 143/65 (91) 100 09/06/19 20:00 99.8 115 35 143/65 (91) 100 09/06/19 20:00 40 09/06/19 20:00 Mechanical Ventilator Mechanical Ventilator Mechanical Ventilator Mechanical Ventilator 09/06/19 19:53 115 09/06/19 19:32 91 25 100 Mechanical Ventilator 40 93 19 40 09/06/19 19:00 90 24 134/64 (87) 92 09/06/19 18:00 91 23 147/69 (95) 100 09/06/19 17:00 97.8 86 26 149/66 (93) 100 09/06/19 16:38 76 22 100 Mechanical Ventilator 40 76 18 40 09/06/19 16:00 78 09/06/19 16:00 78 19 142/63 (89) 100 09/06/19 16:00 Mechanical Ventilator Mechanical Ventilator Mechanical Ventilator Mechanical Ventilator 09/06/19 16:00 40 09/06/19 15:05 76 18 40 09/06/19 15:00 76 17 136/66 (89) 100 09/06/19 14:00 80 20 141/65 (90) 100 09/06/19 13:25 93 22 40 09/06/19 13:00 85 19 140/65 (90) 100 09/06/19 12:00 84 09/06/19 12:00 79 19 137/62 (87) 100 09/06/19 12:00 40 09/06/19 12:00 Mechanical Ventilator Mechanical Ventilator Mechanical Ventilator Mechanical Ventilator 09/06/19 11:55 81 18 100 Mechanical Ventilator 40 80 18 40 09/06/19 11:53 81 18 100 Mechanical Ventilator 40 80 18 40 09/06/19 11:00 84 18 140/64 (89) 100 09/06/19 10:20 98 09/06/19 10:00 80 22 137/65 (89) 100 09/06/19 09:10 81 18 40 09/06/19 09:00 79 18 135/62 (86) 100 09/06/19 09:00 62 120/62 Intake and Output 09/06/19 09/07/19 19:00 07:00 Intake Total 520 ml 205 ml Output Total 55 ml 148 ml Balance 465 ml 57 ml Intake Free Water 100 ml Tube Feeding 420 ml 175 ml Other 30 ml Output Urine Total 55 ml 145 ml Chest Tube Drainage Total 3 ml # Bowel Movements 3 2 Height (Feet): 5 Height (Inches): 4.00 Weight (Pounds): 112 General Appearance: no apparent distress Neck: normal alignment Cardiovascular: normal rate Respiratory/Chest: decreased breath sounds Abdomen: normal bowel sounds Objective Current Medications Medications (Trade) Dose Ordered Sig/Javier Route PRN Reason Start Time Stop Time Status Last Admin Dose Admin Acetaminophen (Tylenol) 650 mg Q4H PRN GT Mild Pain/Temp > 100.5 09/03/19 07:00 10/03/19 06:59 09/03/19 08:36 Acetylcysteine (Mucomyst) 100 mg Q4HRT N 08/31/19 19:00 11/29/19 18:59 09/07/19 07:41 Albuterol/ Ipratropium (Albuterol/ Ipratropium) 3 ml Q4HRT N 09/05/19 23:00 09/10/19 22:59 09/07/19 07:41 Amlodipine Besylate (Norvasc) 5 mg BID NG 08/23/19 01:45 09/22/19 01:44 09/05/19 18:18 Atropine Sulfate (Atropine) 1 mg Q4H PRN IVP Per rx protocol 08/13/19 08:30 09/12/19 08:29 Chlorhexidine Gluconate (Nae-Hex 2%) 1 applic DAILY@2000 TOPIC 08/15/19 20:00 09/14/19 19:59 09/06/19 19:29 Dextrose (Dextrose 50%) 25 ml Q30M PRN IV Hypoglycemia 09/02/19 06:15 12/01/19 06:14 09/04/19 12:11 Dextrose (Dextrose 50%) 50 ml Q30M PRN IV Hypoglycemia 09/02/19 06:15 12/01/19 06:14 Diphenhydramine HCl (Benadryl) 50 mg Q4H PRN IVP Itching 08/09/19 14:30 09/08/19 14:29 09/05/19 06:12 Epoetin Thomas (Epoetin Thomas(ESRD on dialysis)) 4,000 unit THU-THU-THU SUBQ 08/12/19 21:00 09/11/19 20:59 09/05/19 20:40 Hydralazine HCl (Apresoline) 10 mg Q4H PRN IV For High Blood Pressure 08/18/19 12:44 09/17/19 12:43 09/01/19 20:27 Hydralazine HCl (Apresoline) 25 mg Q6HR NG 08/23/19 06:00 09/22/19 05:59 09/07/19 05:48 Hydromorphone HCl (Dilaudid) 0.5 mg Q4H PRN IVP Pain Scale (6-10) 09/03/19 07:00 09/10/19 06:59 09/05/19 03:04 Lansoprazole (Prevacid) 30 mg BID GT 08/19/19 09:00 09/18/19 08:59 09/06/19 18:27 Levothyroxine Sodium (Synthroid) 50 mcg DAILY@0630 ORAL 08/25/19 06:30 09/24/19 06:29 09/07/19 05:48 Metoclopramide HCl (Reglan) 5 mg Q8H PRN IVP Nausea & Vomiting 08/09/19 12:39 09/08/19 12:38 Midazolam HCl 100 ml @ 0 mls/hr Q24H PRN IV Agitation 09/05/19 18:15 09/12/19 18:14 Antonio Jacome MD Sep 07, 2019 08:48
--- NOTE | 2019-09-07 09:48 | Critical Care Progress Note ---
Assessment/Plan Assessment/Plan respiratory failure hemoptysis resolved hypoxemia chronic renal failure toxic met encephalopathy severe protein calorie malnutrition cachexia left lung whiteout/collapse, improved with intubation s/p intubation anemia ? blood loss pulmonary edema with elevated BNP + pleural effusion ? hemothorax s/p CT placement PLAN trach soon monitor for bleeding CT management and hope to dc soon care noted and reviewed monitor ins and outs reviewed care unable to wean prognosis poor overall keep negative and monitor osmotic pressures ID and other specialist reviewed close follow up discussed elevated head and monitor ROM watch fluid status nutrition and monitor residuals isolation as needed off load as able and monitor skin exam ROM as able ICU care and management critical at present requires ICU management and close follow up care feeds as able and monitor residuals medications/laboratory data/nursing notes/ICU care reviewed in detail note reviewed and edited care discussed with RN and RT ICU time spent >40 minutes coordinating care Critical Care - Subjective Interval Events: care noted on vent CT noted ICU care reviewed ROS Limited/Unobtainable: Yes Condition: critical EKG Rhythm: Sinus Rhythm Residuals: minimal Tube Feeding Tolerated: yes I&O: Intake and Output 09/06/19 09/07/19 19:00 07:00 Intake Total 520 ml 205 ml Output Total 55 ml 148 ml Balance 465 ml 57 ml Intake Free Water 100 ml Tube Feeding 420 ml 175 ml Other 30 ml Output Urine Total 55 ml 145 ml Chest Tube Drainage Total 3 ml # Bowel Movements 3 2 Critical Care - Objective ET-Tube: 7.0 ET Position: 19 Last 24 Hour Vital Signs Date Time Temp Pulse Resp B/P (MAP) Pulse Ox O2 Delivery O2 Flow Rate FiO2 09/07/19 09:01 80 22 40 09/07/19 09:00 72 23 157/80 (105) 97 09/07/19 08:00 70 09/07/19 08:00 97.6 79 21 155/72 (99) 100 09/07/19 07:27 68 18 100 Mechanical Ventilator 40 70 18 40 09/07/19 07:00 73 23 141/67 (91) 97 09/07/19 06:30 73 18 09/07/19 06:00 71 25 143/68 (93) 100 09/07/19 05:48 146/70 09/07/19 05:00 82 25 142/93 (109) 100 09/07/19 04:51 79 21 40 09/07/19 04:00 97.3 75 29 163/75 (104) 100 09/07/19 04:00 40 09/07/19 04:00 Mechanical Ventilator Mechanical Ventilator Mechanical Ventilator Mechanical Ventilator 09/07/19 03:15 80 09/07/19 03:00 77 23 136/68 (90) 100 09/07/19 02:49 80 18 100 Mechanical Ventilator 40 77 18 40 09/07/19 02:00 80 23 143/73 (96) 94 09/07/19 01:00 86 25 160/124 (136) 100 09/07/19 00:37 88 24 40 09/07/19 00:00 Mechanical Ventilator Mechanical Ventilator Mechanical Ventilator Mechanical Ventilator 09/07/19 00:00 98.7 80 40 143/67 (92) 100 09/07/19 00:00 40 09/06/19 23:13 157/79 09/06/19 23:08 78 09/06/19 23:00 83 24 157/79 (105) 100 09/06/19 22:32 79 18 98 Mechanical Ventilator 40 82 18 40 09/06/19 22:00 83 22 139/65 (89) 95 09/06/19 21:27 83 18 100 Mechanical Ventilator 40 93 19 40 09/06/19 21:00 88 28 143/65 (91) 100 09/06/19 20:00 99.8 115 35 143/65 (91) 100 09/06/19 20:00 40 09/06/19 20:00 Mechanical Ventilator Mechanical Ventilator Mechanical Ventilator Mechanical Ventilator 09/06/19 19:53 115 09/06/19 19:32 91 25 100 Mechanical Ventilator 40 93 19 40 09/06/19 19:00 90 24 134/64 (87) 92 09/06/19 18:00 91 23 147/69 (95) 100 09/06/19 17:00 97.8 86 26 149/66 (93) 100 09/06/19 16:38 76 22 100 Mechanical Ventilator 40 76 18 40 09/06/19 16:00 78 09/06/19 16:00 78 19 142/63 (89) 100 09/06/19 16:00 Mechanical Ventilator Mechanical Ventilator Mechanical Ventilator Mechanical Ventilator 09/06/19 16:00 40 09/06/19 15:05 76 18 40 09/06/19 15:00 76 17 136/66 (89) 100 09/06/19 14:00 80 20 141/65 (90) 100 09/06/19 13:25 93 22 40 09/06/19 13:00 85 19 140/65 (90) 100 09/06/19 12:00 84 09/06/19 12:00 79 19 137/62 (87) 100 09/06/19 12:00 40 09/06/19 12:00 Mechanical Ventilator Mechanical Ventilator Mechanical Ventilator Mechanical Ventilator 09/06/19 11:55 81 18 100 Mechanical Ventilator 40 80 18 40 09/06/19 11:53 81 18 100 Mechanical Ventilator 40 80 18 40 09/06/19 11:00 84 18 140/64 (89) 100 09/06/19 10:20 98 09/06/19 10:00 80 22 137/65 (89) 100 Labs: Labs Test 09/05/19 04:45 09/06/19 03:45 White Blood Count 5.0 K/UL (4.8-10.8) 7.0 K/UL (4.8-10.8) Red Blood Count 3.25 M/UL (4.20-5.40) 3.28 M/UL (4.20-5.40) Hemoglobin 9.7 G/DL (12.0-16.0) 9.8 G/DL (12.0-16.0) Hematocrit 28.8 % (37.0-47.0) 29.2 % (37.0-47.0) Mean Corpuscular Volume 89 FL (80-99) 89 FL (80-99) Mean Corpuscular Hemoglobin 29.9 PG (27.0-31.0) 29.9 PG (27.0-31.0) Mean Corpuscular Hemoglobin Concent 33.7 G/DL (32.0-36.0) 33.7 G/DL (32.0-36.0) Red Cell Distribution Width 14.0 % (11.6-14.8) 14.3 % (11.6-14.8) Platelet Count 258 K/UL (150-450) 259 K/UL (150-450) Mean Platelet Volume 4.6 FL (6.5-10.1) 5.0 FL (6.5-10.1) Neutrophils (%) (Auto) 69.6 % (45.0-75.0) 70.9 % (45.0-75.0) Lymphocytes (%) (Auto) 23.3 % (20.0-45.0) 20.9 % (20.0-45.0) Monocytes (%) (Auto) 4.9 % (1.0-10.0) 5.5 % (1.0-10.0) Eosinophils (%) (Auto) 1.5 % (0.0-3.0) 2.1 % (0.0-3.0) Basophils (%) (Auto) 0.7 % (0.0-2.0) 0.6 % (0.0-2.0) Sodium Level 144 MMOL/L (136-145) 142 MMOL/L (136-145) Potassium Level 3.4 MMOL/L (3.5-5.1) 3.4 MMOL/L (3.5-5.1) Chloride Level 105 MMOL/L (98-107) 106 MMOL/L (98-107) Carbon Dioxide Level 29 MMOL/L (21-32) 27 MMOL/L (21-32) Anion Gap 10 mmol/L (5-15) 9 mmol/L (5-15) Blood Urea Nitrogen 27 mg/dL (7-18) 32 mg/dL (7-18) Creatinine 2.6 MG/DL (0.55-1.30) 2.9 MG/DL (0.55-1.30) Estimat Glomerular Filtration Rate 17.7 mL/min (>60) 15.7 mL/min (>60) Glucose Level 126 MG/DL (74-106) 145 MG/DL (74-106) Calcium Level 8.8 MG/DL (8.5-10.1) 8.9 MG/DL (8.5-10.1) Total Bilirubin 0.4 MG/DL (0.2-1.0) 0.4 MG/DL (0.2-1.0) Aspartate Amino Transf (AST/SGOT) 23 U/L (15-37) 20 U/L (15-37) Alanine Aminotransferase (ALT/SGPT) 13 U/L (12-78) 14 U/L (12-78) Alkaline Phosphatase 135 U/L (46-116) 146 U/L (46-116) Total Protein 5.8 G/DL (6.4-8.2) 6.0 G/DL (6.4-8.2) Albumin 2.1 G/DL (3.4-5.0) 2.0 G/DL (3.4-5.0) Globulin 3.7 g/dL 4.0 g/dL Albumin/Globulin Ratio 0.6 (1.0-2.7) 0.5 (1.0-2.7) Thyroid Stimulating Hormone (TSH) 6.983 uiU/mL (0.358-3.740) Free Thyroxine 1.14 NG/DL (0.76-1.46) Phosphorus Level 2.7 MG/DL (2.5-4.9) Magnesium Level 2.1 MG/DL (1.8-2.4) Pro-B-Type Natriuretic Peptide > 67524 pg/mL (0-125) Objective: WDWN NAD intubated reduced breath sounds with some rhonchi; CT in place [id number] without MRG NABS nontender no HSM no CCE contractures feeding tube in place no distention reduced LOC and weak nonfocal cachectic reviewed and edited Accucheck: 124 Malcolm Cruz MD Sep 07, 2019 09:48
--- NOTE | 2019-09-07 11:26 | Infectious Diseases Prog Note ---
Assessment/Plan Assessment/Plan A; 1. Hailee sepsis treated 2. Klebsiella sepsis , treated 3. Right shoulder septic arthritis, status post surgery. 4. Diabetes. 5. Hypertension. 6. Anemia 7. Thrombocytopenia improving 9. Atelectasis , left lung collapse 10. Pleural effusion, hemothorax 11. Ulcerative esophagitis PLAN: 1. Observe off antibiotic 3. Poor prognosis Subjective ROS Limited/Unobtainable: Yes Respiratory: Reports: other - will have tracheostomy today Neurologic: Reports: confusion, other - on restraint Allergies: Coded Allergies: VANCOMYCIN (Unverified Allergy, Unknown, 08/02/19) Objective Vital Signs Last 24 Hour Vital Signs Date Time Temp Pulse Resp B/P (MAP) Pulse Ox O2 Delivery O2 Flow Rate FiO2 09/07/19 11:03 82 21 100 Mechanical Ventilator 40 83 22 40 09/07/19 11:00 81 20 151/79 (103) 100 09/07/19 10:00 82 26 153/94 (113) 100 09/07/19 09:01 80 22 40 09/07/19 09:00 72 23 157/80 (105) 97 09/07/19 08:00 Mechanical Ventilator Mechanical Ventilator Mechanical Ventilator Mechanical Ventilator 09/07/19 08:00 70 09/07/19 08:00 40 09/07/19 08:00 97.6 79 21 155/72 (99) 100 09/07/19 07:27 68 18 100 Mechanical Ventilator 40 70 18 40 09/07/19 07:00 73 23 141/67 (91) 97 09/07/19 06:30 73 18 09/07/19 06:00 71 25 143/68 (93) 100 09/07/19 05:48 146/70 09/07/19 05:00 82 25 142/93 (109) 100 09/07/19 04:51 79 21 40 09/07/19 04:00 97.3 75 29 163/75 (104) 100 09/07/19 04:00 40 09/07/19 04:00 Mechanical Ventilator Mechanical Ventilator Mechanical Ventilator Mechanical Ventilator 09/07/19 03:15 80 09/07/19 03:00 77 23 136/68 (90) 100 09/07/19 02:49 80 18 100 Mechanical Ventilator 40 77 18 40 09/07/19 02:00 80 23 143/73 (96) 94 09/07/19 01:00 86 25 160/124 (136) 100 09/07/19 00:37 88 24 40 09/07/19 00:00 Mechanical Ventilator Mechanical Ventilator Mechanical Ventilator Mechanical Ventilator 09/07/19 00:00 98.7 80 40 143/67 (92) 100 09/07/19 00:00 40 09/06/19 23:13 157/79 09/06/19 23:08 78 09/06/19 23:00 83 24 157/79 (105) 100 09/06/19 22:32 79 18 98 Mechanical Ventilator 40 82 18 40 09/06/19 22:00 83 22 139/65 (89) 95 09/06/19 21:27 83 18 100 Mechanical Ventilator 40 93 19 40 09/06/19 21:00 88 28 143/65 (91) 100 09/06/19 20:00 99.8 115 35 143/65 (91) 100 09/06/19 20:00 40 09/06/19 20:00 Mechanical Ventilator Mechanical Ventilator Mechanical Ventilator Mechanical Ventilator 09/06/19 19:53 115 09/06/19 19:32 91 25 100 Mechanical Ventilator 40 93 19 40 09/06/19 19:00 90 24 134/64 (87) 92 09/06/19 18:00 91 23 147/69 (95) 100 09/06/19 17:00 97.8 86 26 149/66 (93) 100 09/06/19 16:38 76 22 100 Mechanical Ventilator 40 76 18 40 09/06/19 16:00 78 09/06/19 16:00 78 19 142/63 (89) 100 09/06/19 16:00 Mechanical Ventilator Mechanical Ventilator Mechanical Ventilator Mechanical Ventilator 09/06/19 16:00 40 09/06/19 15:05 76 18 40 09/06/19 15:00 76 17 136/66 (89) 100 09/06/19 14:00 80 20 141/65 (90) 100 09/06/19 13:25 93 22 40 09/06/19 13:00 85 19 140/65 (90) 100 09/06/19 12:00 84 09/06/19 12:00 79 19 137/62 (87) 100 09/06/19 12:00 40 09/06/19 12:00 Mechanical Ventilator Mechanical Ventilator Mechanical Ventilator Mechanical Ventilator 09/06/19 11:55 81 18 100 Mechanical Ventilator 40 80 18 40 09/06/19 11:53 81 18 100 Mechanical Ventilator 40 80 18 40 Height (Feet): 5 Height (Inches): 4.00 Weight (Pounds): 114 General Appearance: cachetic HEENT: other - orally intubated Respiratory/Chest: lungs clear, other - , left side chest tube Cardiovascular: normal rate Abdomen: soft, non tender, other - GT feeding Extremities: other - R arm edema Skin: rash, other - feet Neurologic/Psychiatric: disoriented Current Medications Medications (Trade) Dose Ordered Sig/Javier Route PRN Reason Start Time Stop Time Status Last Admin Dose Admin Acetaminophen (Tylenol) 650 mg Q4H PRN GT Mild Pain/Temp > 100.5 09/03/19 07:00 10/03/19 06:59 09/03/19 08:36 Acetylcysteine (Mucomyst) 100 mg Q4HRT N 08/31/19 19:00 11/29/19 18:59 09/07/19 11:17 Albuterol/ Ipratropium (Albuterol/ Ipratropium) 3 ml Q4HRT N 09/05/19 23:00 09/10/19 22:59 09/07/19 11:17 Amlodipine Besylate (Norvasc) 5 mg BID NG 08/23/19 01:45 09/22/19 01:44 09/05/19 18:18 Atropine Sulfate (Atropine) 1 mg Q4H PRN IVP Per rx protocol 08/13/19 08:30 09/12/19 08:29 Chlorhexidine Gluconate (Nae-Hex 2%) 1 applic DAILY@1999 TOPIC 08/15/19 20:00 09/14/19 19:59 09/06/19 19:29 Dextrose (Dextrose 50%) 25 ml Q30M PRN IV Hypoglycemia 09/02/19 06:15 12/01/19 06:14 09/04/19 12:11 Dextrose (Dextrose 50%) 50 ml Q30M PRN IV Hypoglycemia 09/02/19 06:15 12/01/19 06:14 Diphenhydramine HCl (Benadryl) 50 mg Q4H PRN IVP Itching 08/09/19 14:30 09/08/19 14:29 09/05/19 06:12 Epoetin Thomas (Epoetin Thomas(ESRD on dialysis)) 4,000 unit SUBQ 08/12/19 21:00 09/11/19 20:59 09/05/19 20:40 Hydralazine HCl (Apresoline) 10 mg Q4H PRN IV For High Blood Pressure 08/18/19 12:44 09/17/19 12:43 09/01/19 20:27 Hydralazine HCl (Apresoline) 25 mg Q6HR NG 08/23/19 06:00 09/22/19 05:59 09/07/19 05:48 Hydromorphone HCl (Dilaudid) 0.5 mg Q4H PRN IVP Pain Scale (6-10) 09/03/19 07:00 09/10/19 06:59 09/05/19 03:04 Lansoprazole (Prevacid) 30 mg BID GT 08/19/19 09:00 09/18/19 08:59 09/07/19 08:49 Levothyroxine Sodium (Synthroid) 50 mcg DAILY@0630 ORAL 08/25/19 06:30 09/24/19 06:29 09/07/19 05:48 Metoclopramide HCl (Reglan) 5 mg Q8H PRN IVP Nausea & Vomiting 08/09/19 12:39 09/08/19 12:38 Midazolam HCl 100 ml @ 0 mls/hr Q24H PRN IV Agitation 09/05/19 18:15 09/12/19 18:14 Warren Parks MD Sep 07, 2019 11:26
--- NOTE | 2019-09-07 11:37 | Nephrology Progress Note ---
Assessment/Plan Problem List: (1) ESRD (end stage renal disease) on dialysis (2) Malnutrition (3) Anemia in CKD (chronic kidney disease) (4) Hypotension (5) Thrombocytopenia (6) Sepsis Assessment: klebsiella in blood Assessment -Early sepsis with shock. -Healthcare-associated pneumonia. -Severe protein-calorie malnutrition. -Thrombocytopenia. - End-stage renal disease. - History of hypertension. - Bradycardia. - HypoThyroid Plan No labs for today Due for tracheostomy Check lab tomorrow and arrange for dialysis as needed Continues to have chest tube on the left side was put in on September 01 Patient transfused 3 units of packed RBCs for low hemoglobin Been stable today Remains full code Last dialysis September 03 next hemodialysis as needed Due to her overall medical condition I favor DNR and comfort care Blood pressure fluctuating, will start hydralazine via NG tube for blood pressure Magnesium and potassium supplement intravenously as needed Patient underwent PEG placement August 16 patient remains intubated on ventilator Discussed with RN Aim to wean from ventilator or consider tracheostomy Permacath was removed on August 12 Dialysis 08/11 Transfusion as needed Patient had hematemesis meds IV as possible Surveillance blood cultures tomorrow Plan to put the permacath back in on Thursday if cultures are negative keep BP and BS in check Inflammatory markers per orders Subjective ROS Limited/Unobtainable: Yes Objective Objective Last 24 Hour Vital Signs Date Time Temp Pulse Resp B/P (MAP) Pulse Ox O2 Delivery O2 Flow Rate FiO2 09/07/19 11:03 82 21 100 Mechanical Ventilator 40 83 22 40 09/07/19 11:00 81 20 151/79 (103) 100 09/07/19 10:00 82 26 153/94 (113) 100 09/07/19 09:01 80 22 40 09/07/19 09:00 72 23 157/80 (105) 97 09/07/19 08:00 Mechanical Ventilator Mechanical Ventilator Mechanical Ventilator Mechanical Ventilator 09/07/19 08:00 70 09/07/19 08:00 40 09/07/19 08:00 97.6 79 21 155/72 (99) 100 09/07/19 07:27 68 18 100 Mechanical Ventilator 40 70 18 40 09/07/19 07:00 73 23 141/67 (91) 97 09/07/19 06:30 73 18 09/07/19 06:00 71 25 143/68 (93) 100 09/07/19 05:48 146/70 09/07/19 05:00 82 25 142/93 (109) 100 09/07/19 04:51 79 21 40 09/07/19 04:00 97.3 75 29 163/75 (104) 100 09/07/19 04:00 40 09/07/19 04:00 Mechanical Ventilator Mechanical Ventilator Mechanical Ventilator Mechanical Ventilator 09/07/19 03:15 80 09/07/19 03:00 77 23 136/68 (90) 100 09/07/19 02:49 80 18 100 Mechanical Ventilator 40 77 18 40 09/07/19 02:00 80 23 143/73 (96) 94 09/07/19 01:00 86 25 160/124 (136) 100 09/07/19 00:37 88 24 40 09/07/19 00:00 Mechanical Ventilator Mechanical Ventilator Mechanical Ventilator Mechanical Ventilator 09/07/19 00:00 98.7 80 40 143/67 (92) 100 09/07/19 00:00 40 09/06/19 23:13 157/79 09/06/19 23:08 78 09/06/19 23:00 83 24 157/79 (105) 100 09/06/19 22:32 79 18 98 Mechanical Ventilator 40 82 18 40 09/06/19 22:00 83 22 139/65 (89) 95 09/06/19 21:27 83 18 100 Mechanical Ventilator 40 93 19 40 09/06/19 21:00 88 28 143/65 (91) 100 09/06/19 20:00 99.8 115 35 143/65 (91) 100 09/06/19 20:00 40 09/06/19 20:00 Mechanical Ventilator Mechanical Ventilator Mechanical Ventilator Mechanical Ventilator 09/06/19 19:53 115 09/06/19 19:32 91 25 100 Mechanical Ventilator 40 93 19 40 09/06/19 19:00 90 24 134/64 (87) 92 09/06/19 18:00 91 23 147/69 (95) 100 09/06/19 17:00 97.8 86 26 149/66 (93) 100 09/06/19 16:38 76 22 100 Mechanical Ventilator 40 76 18 40 09/06/19 16:00 78 09/06/19 16:00 78 19 142/63 (89) 100 09/06/19 16:00 Mechanical Ventilator Mechanical Ventilator Mechanical Ventilator Mechanical Ventilator 09/06/19 16:00 40 09/06/19 15:05 76 18 40 09/06/19 15:00 76 17 136/66 (89) 100 09/06/19 14:00 80 20 141/65 (90) 100 09/06/19 13:25 93 22 40 09/06/19 13:00 85 19 140/65 (90) 100 09/06/19 12:00 84 09/06/19 12:00 79 19 137/62 (87) 100 09/06/19 12:00 40 09/06/19 12:00 Mechanical Ventilator Mechanical Ventilator Mechanical Ventilator Mechanical Ventilator 09/06/19 11:55 81 18 100 Mechanical Ventilator 40 80 18 40 09/06/19 11:53 81 18 100 Mechanical Ventilator 40 80 18 40 Intake and Output 09/06/19 09/07/19 19:00 07:00 Intake Total 520 ml 205 ml Output Total 55 ml 148 ml Balance 465 ml 57 ml Intake Free Water 100 ml Tube Feeding 420 ml 175 ml Other 30 ml Output Urine Total 55 ml 145 ml Chest Tube Drainage Total 3 ml # Bowel Movements 3 2 Height (Feet): 5 Height (Inches): 4.00 Weight (Pounds): 114 General Appearance: no apparent distress EENT: other - Remains intubated on ventilator Cardiovascular: normal rate - Rate 82 Respiratory/Chest: decreased breath sounds Abdomen: soft Objective no change William Blackwood MD Sep 07, 2019 11:37
--- NOTE | 2019-09-07 13:30 | Surgery Progress Note ---
Surgery Progress Note Subjective Procedure Performed left chest tube insertion Additional Comments no acute events consent obtained will plan for trach tomorrow as timing now allowable today Objective Last 24 Hour Vital Signs Date Time Temp Pulse Resp B/P (MAP) Pulse Ox O2 Delivery O2 Flow Rate FiO2 09/07/19 13:00 92 22 166/86 (112) 100 09/07/19 12:25 80 22 40 09/07/19 12:00 88 09/07/19 12:00 88 27 160/66 (97) 100 09/07/19 12:00 40 09/07/19 11:03 82 21 100 Mechanical Ventilator 40 83 22 40 09/07/19 11:00 81 20 151/79 (103) 100 09/07/19 10:00 82 26 153/94 (113) 100 09/07/19 09:01 80 22 40 09/07/19 09:00 72 23 157/80 (105) 97 09/07/19 08:00 Mechanical Ventilator Mechanical Ventilator Mechanical Ventilator Mechanical Ventilator 09/07/19 08:00 70 09/07/19 08:00 40 09/07/19 08:00 97.6 79 21 155/72 (99) 100 09/07/19 07:27 68 18 100 Mechanical Ventilator 40 70 18 40 09/07/19 07:00 73 23 141/67 (91) 97 09/07/19 06:30 73 18 09/07/19 06:00 71 25 143/68 (93) 100 09/07/19 05:48 146/70 09/07/19 05:00 82 25 142/93 (109) 100 09/07/19 04:51 79 21 40 09/07/19 04:00 97.3 75 29 163/75 (104) 100 09/07/19 04:00 40 09/07/19 04:00 Mechanical Ventilator Mechanical Ventilator Mechanical Ventilator Mechanical Ventilator 09/07/19 03:15 80 09/07/19 03:00 77 23 136/68 (90) 100 09/07/19 02:49 80 18 100 Mechanical Ventilator 40 77 18 40 09/07/19 02:00 80 23 143/73 (96) 94 09/07/19 01:00 86 25 160/124 (136) 100 09/07/19 00:37 88 24 40 09/07/19 00:00 Mechanical Ventilator Mechanical Ventilator Mechanical Ventilator Mechanical Ventilator 09/07/19 00:00 98.7 80 40 143/67 (92) 100 09/07/19 00:00 40 09/06/19 23:13 157/79 09/06/19 23:08 78 09/06/19 23:00 83 24 157/79 (105) 100 09/06/19 22:32 79 18 98 Mechanical Ventilator 40 82 18 40 09/06/19 22:00 83 22 139/65 (89) 95 09/06/19 21:27 83 18 100 Mechanical Ventilator 40 93 19 40 09/06/19 21:00 88 28 143/65 (91) 100 09/06/19 20:00 99.8 115 35 143/65 (91) 100 09/06/19 20:00 40 09/06/19 20:00 Mechanical Ventilator Mechanical Ventilator Mechanical Ventilator Mechanical Ventilator 09/06/19 19:53 115 09/06/19 19:32 91 25 100 Mechanical Ventilator 40 93 19 40 09/06/19 19:00 90 24 134/64 (87) 92 09/06/19 18:00 91 23 147/69 (95) 100 09/06/19 17:00 97.8 86 26 149/66 (93) 100 09/06/19 16:38 76 22 100 Mechanical Ventilator 40 76 18 40 09/06/19 16:00 78 09/06/19 16:00 78 19 142/63 (89) 100 09/06/19 16:00 Mechanical Ventilator Mechanical Ventilator Mechanical Ventilator Mechanical Ventilator 09/06/19 16:00 40 09/06/19 15:05 76 18 40 09/06/19 15:00 76 17 136/66 (89) 100 09/06/19 14:00 80 20 141/65 (90) 100 I&O Intake and Output 09/06/19 09/07/19 19:00 07:00 Intake Total 520 ml 205 ml Output Total 55 ml 148 ml Balance 465 ml 57 ml Intake Free Water 100 ml Tube Feeding 420 ml 175 ml Other 30 ml Output Urine Total 55 ml 145 ml Chest Tube Drainage Total 3 ml # Bowel Movements 3 2 Dressing: other Wound: other Drains: other Cardiovascular: RSR Respiratory: decreased breath sounds Abdomen: soft, non-tender, present bowel sounds Extremities: no cyanosis Assessment Post-op Diagnosis same Plan Problems: (1) Malnutrition Assessment & Plan: DAILY ESTIMATED NEEDS: Needs based on ESRD+ HD, underweight, wound/ 39.5kg 35-40 kcals/kg 8835-8980 total kcals 1.25-1.8 g protein/kg 49-71 g total protein 20-22 mL/kg 790-869 total fluid mLs NUTRITION DIAGNOSIS: * Increased kcal and protein needs r/t underweight status, HD needs, wuond healing as evidenced by pt is underweight per guidelines, ESRD, on HD, admitted non-blanching erythema wounds @ BL heels and sacrum * Swallowing difficulty R/T dysphagia as evidenced by [employer] recommends temporary nonoral feeding at this time, s/p NGT insertion, on NGT feeding-> now s/p self removal, NPO. CURRENT TF:NPO PO DIET RECOMMENDATIONS: WHEN SAFE FOR ORAL DIET -> renal/ texture per [employer] ENTERAL NUTRITION RECOMMENDATIONS: W/ GI access: Nepro @ 35ml/hr x 22 hrs to provide 770ml, 1386kcal, 62g prot, 560ml free water * W/ GI access, resume TF on Nepro * Initiate Nepro @ 15ml/hr x 6 hrs, advance 10ml q 4-6 hrs as tolerated to goal rate. * Hold 1 hour before and after Synthroid med * HOB over 30 degrees/ water flush per MD. ADDITIONAL RECOMMENDATIONS: 1) Calibrated bed scale wt for accurate CBW -> daily wt monitoring Per HD record: dry wt on 07/30=39.5kg (87lbs) 2) Wound care: (W/ GI access) add Nephorivte x 1 + Balta BID 3) Monitor NPO status: without GI access at this time, s/p pulling out NGT 4) Monitor for hypoglycemia while NPO 5) Monitor for continuity of HD (2) Septic arthritis Assessment & Plan: Pt presented on admission with generalized scaly rash . pt noted to be restless and scratching at skin. Bleeding from oral mucosa noted. Joint deformity noted to R shoulder. Surgical incision approximated with 11 sutures. Erythema but no exudate,or elevation in skin temp at site of incision. Historical incision R hip that is tunneled.Small amt seropurulent exudate noted. Periwound is erythematous,but no elevation in skin temp noted. No odor noted. Non-blanching erythema noted to sacrum. Perianal area is erythematous and excoriated. L heel is boggy with non-blanching erythema. R heel is soft with non-blanching erythema. No evidence of skin breakdown to all other bony prominences. Tx.plan: Cover R shoulder with Drsg and change daily and prn. Cleanse R hip wound with Saline. Apply Therahoney.Apply Cavilon Skin Barrier periwound. Cover with Optifoam drsg. Change every 3 days and prn. Apply Moisture Barrier Paste to perianal area and buttocks. Cover Sacrum with Optifoam drsg. Change every 3 days and prn. Apply Cavilon Skin Barrier to both heels. Cover each heel with Optifoam drsg. Change every 7 days and prn. APM/ELVIA Mattress overlay. Reposition at least every 2hours or as tolerated. Off-load heels with pillow. HD cath necessary HD as renal likely will need intubation (3) Wound, open, hip or thigh with complication Assessment & Plan: slow healing will need nutritional optimization difficult ng tube peg when stable sutures removed from right shoulder comfortable wean vent may need trach (4) Abscess of right hip (5) possible septic arthritis (6) Renal failure (ARF), acute on chronic Assessment & Plan: cont HD will need tunneled cath placement okay to use fem line for now but will need change soon. line monitored and clean dressings going well (7) Pneumonia Assessment & Plan: intubated on vent support not tolerating weaning may need trach hemothorax likely after thoracentesis Chest CT noted Left chest tube placed With plan for trach chest tube can be considered but overall prognosis is very poor Camilo Jmaes Sep 07, 2019 13:30
--- NOTE | 2019-09-07 13:49 | Anethesia Preoperative Eval ---
Anesthesia Pre-op PMH/ROS General Date of Evaluation: Sep 07, 2019 Time of Evaluation: 13:49 Anesthesiologist: Bryant ASA Score: ASA 4 Mallampati Score Class I : Soft palate, uvula, fauces, pillars visible Class II: Soft palate, uvula, fauces visible Class III: Soft palate, base of uvula visible Class IV: Only hard plate visible Mallampati Classification: Class III Surgeon: Erika Diagnosis: Ventilatory Failure Surgical Procedure: Tracheostomy Anesthesia History: none Family History: no anesthesia problems Allergies: Coded Allergies: VANCOMYCIN (Unverified Allergy, Unknown, 08/02/19) Medications: see eMAR Patient NPO?: Yes NPO Date: Sep 06, 2019 NPO Time: 0000 Past Medical History Cardiovascular: Reports: HTN, CAD, other - HL Gastrointestinal/Genitourinary: Reports: GERD, ESRD - Dialysis Neurologic/Psychiatric: Reports: dementia, CVA, depression/anxiety, other - Schizophrenia Endocrine: Reports: DM, hypothyroidism Hematology/Immune: Reports: anemia Musculoskeletal/Integumentary: Reports: other - Contracted PSxH Narrative: AV Shunt Anesthesia Pre-op Phys. Exam Physician Exam Last Vital Signs Date Time Temp Pulse Resp B/P (MAP) Pulse Ox O2 Delivery O2 Flow Rate FiO2 09/07/19 13:00 92 22 166/86 (112) 100 09/07/19 12:25 40 09/07/19 11:03 Mechanical Ventilator 09/07/19 08:00 97.6 Constitutional: NAD Neurologic: CN 2-12 intact Cardiovascular: RRR Respiratory: CTA Gastrointestinal: S/NT/ND Airway Exam Mallampati Score: Class III MO: limited Neck: Intubated ROM: limited Teeth: missing Anesthesia Pre-op A/P Labs Labs Test 08/02/19 16:47 08/02/19 17:05 08/04/19 05:30 08/07/19 05:55 Atypical Lymphocytes 2+ Giant Platelets Occasional Total Creatine Kinase 39 U/L (26-308) Creatine Kinase MB 3.9 NG/ML (0.0-3.6) Creatine Kinase MB Relative Index 10.0 Urine Color Pale yellow Urine Appearance Clear Urine pH 8.0 (4.5-8.0) Urine Specific [place] 1.015 (1.005-1.035) Urine Protein 3+ (NEGATIVE) Urine Glucose (UA) Negative (NEGATIVE) Urine Ketones Negative (NEGATIVE) Urine Blood 5+ (NEGATIVE) Urine Nitrite Negative (NEGATIVE) Urine Bilirubin Negative (NEGATIVE) Urine Urobilinogen Normal MG/DL (0.0-1.0) Urine Leukocyte Esterase 3+ (NEGATIVE) Urine RBC 20-30 /HPF (0 - 2) Urine WBC Tntc /HPF (0 - 2) Urine Squamous Epithelial Cells Moderate /LPF (NONE/OCC) Urine Bacteria Many /HPF (NONE) Spherocytes 2+ Hemoglobin A1c 5.7 % (4.3-6.0) Iron Level 100 ug/dL (50-175) Total Iron Binding Capacity 96 ug/dL (250-450) Percent Iron Saturation 104 % (15-50) Unsaturated Iron Binding -4 ug/dL (112-346) Ferritin > 2000 NG/ML (8-388) Gamma Glutamyl Transpeptidase 8 U/L (5-85) Triglycerides Level 274 MG/DL (30-150) Cholesterol Level 145 MG/DL (< 200) LDL Cholesterol 58 mg/dL (<100) HDL Cholesterol 56 MG/DL (40-60) Cholesterol/HDL Ratio 2.6 (3.3-4.4) Vitamin B12 Level 1333 PG/ML (193-986) Folate 12.5 NG/ML (8.6-58.9) Hepatitis B Surface Antigen Negative (NEGATIVE) Test 08/09/19 06:20 08/10/19 05:10 08/13/19 05:12 08/14/19 02:55 Manual Platelet Count 38 K/UL (150-450) Lactic Acid Level 0.70 mmol/L (0.4-2.0) Troponin I 0.557 ng/mL (0.000-0.056) Free Triiodothyronine 0.8 pg/mL (2.3-4.2) Cortisol 15.1 UG/DL Test 08/27/19 08:00 08/30/19 16:41 08/31/19 20:50 08/31/19 22:45 Direct Bilirubin < 0.1 MG/DL (0.0-0.3) Arterial Blood pH 7.553 (7.350-7.450) Arterial Blood Partial Pressure CO2 35.7 mmHg (35.0-45.0) Arterial Blood Partial Pressure O2 111.7 mmHg (75.0-100.0) Arterial Blood HCO3 30.7 mmol/L (22.0-26.0) Arterial Blood Oxygen Saturation 97.5 % (95-100) Arterial Blood Base Excess 7.7 (-2-2) [place]em[place] Test Positive Hypochromasia 3+ Anisocytosis 3+ Differential Total Cells Counted 100 Neutrophils % (Manual) 70 % (45-75) Lymphocytes % (Manual) 28 % (20-45) Monocytes % (Manual) 2 % (1-10) Eosinophils % (Manual) 0 % (0-3) Basophils % (Manual) 0 % (0-2) Band Neutrophils 0 % (0-8) Platelet Estimate Adequate Platelet Morphology Normal Test 09/02/19 03:40 09/04/19 05:30 09/05/19 04:45 09/06/19 03:45 Prothrombin Time 11.2 SEC (9.30-11.50) Prothromb Time International Ratio 1.1 (0.9-1.1) Activated Partial Thromboplast Time 29 SEC (23-33) Uric Acid 6.9 MG/DL (2.6-7.2) C-Reactive Protein, Quantitative 18.2 mg/dL (0.00-0.90) Thyroid Stimulating Hormone (TSH) 6.983 uiU/mL (0.358-3.740) Free Thyroxine 1.14 NG/DL (0.76-1.46) White Blood Count 7.0 K/UL (4.8-10.8) Red Blood Count 3.28 M/UL (4.20-5.40) Hemoglobin 9.8 G/DL (12.0-16.0) Hematocrit 29.2 % (37.0-47.0) Mean Corpuscular Volume 89 FL (80-99) Mean Corpuscular Hemoglobin 29.9 PG (27.0-31.0) Mean Corpuscular Hemoglobin Concent 33.7 G/DL (32.0-36.0) Red Cell Distribution Width 14.3 % (11.6-14.8) Platelet Count 259 K/UL (150-450) Mean Platelet Volume 5.0 FL (6.5-10.1) Neutrophils (%) (Auto) 70.9 % (45.0-75.0) Lymphocytes (%) (Auto) 20.9 % (20.0-45.0) Monocytes (%) (Auto) 5.5 % (1.0-10.0) Eosinophils (%) (Auto) 2.1 % (0.0-3.0) Basophils (%) (Auto) 0.6 % (0.0-2.0) Sodium Level 142 MMOL/L (136-145) Potassium Level 3.4 MMOL/L (3.5-5.1) Chloride Level 106 MMOL/L (98-107) Carbon Dioxide Level 27 MMOL/L (21-32) Anion Gap 9 mmol/L (5-15) Blood Urea Nitrogen 32 mg/dL (7-18) Creatinine 2.9 MG/DL (0.55-1.30) Estimat Glomerular Filtration Rate 15.7 mL/min (>60) Glucose Level 145 MG/DL (74-106) Calcium Level 8.9 MG/DL (8.5-10.1) Phosphorus Level 2.7 MG/DL (2.5-4.9) Magnesium Level 2.1 MG/DL (1.8-2.4) Total Bilirubin 0.4 MG/DL (0.2-1.0) Aspartate Amino Transf (AST/SGOT) 20 U/L (15-37) Alanine Aminotransferase (ALT/SGPT) 14 U/L (12-78) Alkaline Phosphatase 146 U/L (46-116) Pro-B-Type Natriuretic Peptide > 49712 pg/mL (0-125) Total Protein 6.0 G/DL (6.4-8.2) Albumin 2.0 G/DL (3.4-5.0) Globulin 4.0 g/dL Albumin/Globulin Ratio 0.5 (1.0-2.7) Risk Assessment & Plan Assessment: ASA 4 Plan: GA Status Change Before Surgery: No Pre-Antibiotics Drug: Bony Berg MD Sep 07, 2019 13:49
--- NOTE | 2019-09-07 14:34 | General Progress Note ---
Assessment/Plan Problem List: (1) Failure to thrive (0-17) ICD Codes: R62.51 - Failure to thrive (0-17) SNOMED: 074418999 (2) Hypertensive kidney disease ICD Codes: I12.9 - Hypertensive chronic kidney disease with stage 1 through stage 4 chronic kidney disease, or unspecified chronic kidney disease SNOMED: 01621300 (3) Pneumonia ICD Codes: J18.9 - Pneumonia, unspecified organism SNOMED: 675858798 Qualifiers: Qualified Codes: J18.9 - Pneumonia, unspecified organism (4) ESRD (end stage renal disease) ICD Codes: N18.6 - End stage renal disease SNOMED: 22745697 (5) Septic arthritis ICD Codes: M00.9 - Pyogenic arthritis, unspecified SNOMED: 027745006 (6) Thrombocytopenia ICD Codes: D69.6 - Thrombocytopenia, unspecified SNOMED: 111208813 (7) Hypotension ICD Codes: I95.9 - Hypotension, unspecified SNOMED: 17484279 Qualifiers: Qualified Codes: I95.3 - Hypotension of hemodialysis (8) Malnutrition ICD Codes: E46 - Unspecified protein-calorie malnutrition SNOMED: 53147512 Status: stable, not improved, unchanged, deteriorating Assessment/Plan: cont resp care chest pt/suctioning resp rx monitor cbc transfuse as needed cont weaning- try simv monitor plts iv PPI iv abx HD bp rx chest tube management per surgery trach tomorrow Subjective ROS Limited/Unobtainable: No Constitutional: Reports: malaise, weakness HEENT: Reports: no symptoms Cardiovascular: Reports: no symptoms Respiratory: Reports: cough Gastrointestinal/Abdominal: Reports: difficulty swallowing Genitourinary: Reports: no symptoms Neurologic/Psychiatric: Reports: anxiety, depressed Endocrine: Reports: no symptoms Hematologic/Lymphatic: Reports: anemia Allergies: Coded Allergies: VANCOMYCIN (Unverified Allergy, Unknown, 08/02/19) All Systems: reviewed and negative except above Subjective no events, w/o complaints.stable s/p chest tube placement. tolerated well. alert. remains on the vent. minimal bloody output from ct. some serosanguinous drainage from ct site h/h remains stable Objective Last 24 Hour Vital Signs Date Time Temp Pulse Resp B/P (MAP) Pulse Ox O2 Delivery O2 Flow Rate FiO2 09/07/19 14:15 157/74 09/07/19 14:00 91 27 157/74 (101) 100 09/07/19 13:00 92 22 166/86 (112) 100 09/07/19 12:25 80 22 40 09/07/19 12:00 88 09/07/19 12:00 Mechanical Ventilator Mechanical Ventilator Mechanical Ventilator Mechanical Ventilator 09/07/19 12:00 88 27 160/66 (97) 100 09/07/19 12:00 40 09/07/19 11:03 82 21 100 Mechanical Ventilator 40 83 22 40 09/07/19 11:00 81 20 151/79 (103) 100 09/07/19 10:00 82 26 153/94 (113) 100 09/07/19 09:01 80 22 40 09/07/19 09:00 72 23 157/80 (105) 97 09/07/19 08:00 Mechanical Ventilator Mechanical Ventilator Mechanical Ventilator Mechanical Ventilator 09/07/19 08:00 70 09/07/19 08:00 40 09/07/19 08:00 97.6 79 21 155/72 (99) 100 09/07/19 07:27 68 18 100 Mechanical Ventilator 40 70 18 40 09/07/19 07:00 73 23 141/67 (91) 97 09/07/19 06:30 73 18 09/07/19 06:00 71 25 143/68 (93) 100 09/07/19 05:48 146/70 09/07/19 05:00 82 25 142/93 (109) 100 09/07/19 04:51 79 21 40 09/07/19 04:00 97.3 75 29 163/75 (104) 100 09/07/19 04:00 40 09/07/19 04:00 Mechanical Ventilator Mechanical Ventilator Mechanical Ventilator Mechanical Ventilator 09/07/19 03:15 80 09/07/19 03:00 77 23 136/68 (90) 100 09/07/19 02:49 80 18 100 Mechanical Ventilator 40 77 18 40 09/07/19 02:00 80 23 143/73 (96) 94 09/07/19 01:00 86 25 160/124 (136) 100 09/07/19 00:37 88 24 40 09/07/19 00:00 Mechanical Ventilator Mechanical Ventilator Mechanical Ventilator Mechanical Ventilator 09/07/19 00:00 98.7 80 40 143/67 (92) 100 09/07/19 00:00 40 09/06/19 23:13 157/79 09/06/19 23:08 78 09/06/19 23:00 83 24 157/79 (105) 100 09/06/19 22:32 79 18 98 Mechanical Ventilator 40 82 18 40 09/06/19 22:00 83 22 139/65 (89) 95 09/06/19 21:27 83 18 100 Mechanical Ventilator 40 93 19 40 09/06/19 21:00 88 28 143/65 (91) 100 09/06/19 20:00 99.8 115 35 143/65 (91) 100 09/06/19 20:00 40 09/06/19 20:00 Mechanical Ventilator Mechanical Ventilator Mechanical Ventilator Mechanical Ventilator 09/06/19 19:53 115 09/06/19 19:32 91 25 100 Mechanical Ventilator 40 93 19 40 09/06/19 19:00 90 24 134/64 (87) 92 09/06/19 18:00 91 23 147/69 (95) 100 09/06/19 17:00 97.8 86 26 149/66 (93) 100 09/06/19 16:38 76 22 100 Mechanical Ventilator 40 76 18 40 09/06/19 16:00 78 09/06/19 16:00 78 19 142/63 (89) 100 09/06/19 16:00 Mechanical Ventilator Mechanical Ventilator Mechanical Ventilator Mechanical Ventilator 09/06/19 16:00 40 09/06/19 15:05 76 18 40 09/06/19 15:00 76 17 136/66 (89) 100 Intake and Output 09/06/19 09/07/19 19:00 07:00 Intake Total 520 ml 205 ml Output Total 55 ml 148 ml Balance 465 ml 57 ml Intake Free Water 100 ml Tube Feeding 420 ml 175 ml Other 30 ml Output Urine Total 55 ml 145 ml Chest Tube Drainage Total 3 ml # Bowel Movements 3 2 Height (Feet): 5 Height (Inches): 4.00 Weight (Pounds): 114 Objective General Appearance: WD/WN, awake/moaning. orally intubated Neck: supple Cardiovascular: normal rate Respiratory/Chest: rhonchi - bilaterally Abdomen: normal bowel sounds, non tender, soft, no organomegaly Edema: no edema noted Arm (L), no edema noted Arm (R), no edema noted Leg (L), no edema noted Leg (R), no edema noted Pedal (L), no edema noted Pedal (R), no edema noted Generalized Neurologic: disoriented, aphasia Nate Beltran MD Sep 07, 2019 14:34
[2019-09-07] MEDS: Dyna-Hex 2% Top Sol 2oz TOPIC SCH (20:15)
[2019-09-07] MEDS: Epoetin Alfa-EPBX(ESRD on dialysis)4000 units/ml vial SUBQ SCH (21:10)
--- NOTE | 2019-09-07 23:15 | General Progress Note ---
Assessment/Plan Status: stable, not improved, unchanged, deteriorating Assessment/Plan: Assessment - Severe ulcerative esophagitis - Resp failure - s/p Chest tube - thrombocytopenia --> resolved - Renal failure - aspiration risk --> s/p PEG - anemia - bradycardia - Poor prognosis Recommendations - GT care - water flushes - elevate HOB - monitor H&H Subjective Allergies: Coded Allergies: VANCOMYCIN (Unverified Allergy, Unknown, 08/02/19) Subjective Above noted No events overnight d/w RN and surgery trach planned Objective Last 24 Hour Vital Signs Date Time Temp Pulse Resp B/P (MAP) Pulse Ox O2 Delivery O2 Flow Rate FiO2 09/07/19 23:00 90 29 142/85 (104) 83 09/07/19 22:00 85 20 117/62 (80) 100 09/07/19 21:20 90 20 40 09/07/19 21:00 93 29 118/87 (97) 100 09/07/19 20:00 99 09/07/19 20:00 98.0 87 18 133/107 (116) 100 09/07/19 20:00 Mechanical Ventilator Mechanical Ventilator Mechanical Ventilator Mechanical Ventilator 09/07/19 20:00 40 09/07/19 19:42 95 18 100 Mechanical Ventilator 40 09/07/19 19:27 85 18 Mechanical Ventilator 40 40 09/07/19 19:00 81 18 124/74 (91) 100 09/07/19 18:07 96 28 153/75 (101) 100 09/07/19 17:03 99 19 40 09/07/19 17:00 98 19 130/80 (97) 100 09/07/19 16:00 97.9 99 30 120/82 (95) 100 09/07/19 16:00 40 09/07/19 16:00 Mechanical Ventilator Mechanical Ventilator Mechanical Ventilator Mechanical Ventilator 09/07/19 16:00 98 09/07/19 15:03 92 20 100 Mechanical Ventilator 40 92 18 40 09/07/19 15:00 91 24 115/78 (90) 100 09/07/19 14:15 157/74 09/07/19 14:00 91 27 157/74 (101) 100 09/07/19 13:00 92 22 166/86 (112) 100 09/07/19 12:25 80 22 40 09/07/19 12:00 88 3/25/20 12:00 Mechanical Ventilator Mechanical Ventilator Mechanical Ventilator Mechanical Ventilator 09/07/19 12:00 88 27 160/66 (97) 100 09/07/19 12:00 40 09/07/19 11:03 82 21 100 Mechanical Ventilator 40 83 22 40 09/07/19 11:00 81 20 151/79 (103) 100 09/07/19 10:00 82 26 153/94 (113) 100 09/07/19 09:01 80 22 40 09/07/19 09:00 72 23 157/80 (105) 97 09/07/19 08:00 Mechanical Ventilator Mechanical Ventilator Mechanical Ventilator Mechanical Ventilator 09/07/19 08:00 70 09/07/19 08:00 40 09/07/19 08:00 97.6 79 21 155/72 (99) 100 09/07/19 07:27 68 18 100 Mechanical Ventilator 40 70 18 40 09/07/19 07:00 73 23 141/67 (91) 97 09/07/19 06:30 73 18 09/07/19 06:00 71 25 143/68 (93) 100 09/07/19 05:48 146/70 09/07/19 05:00 82 25 142/93 (109) 100 09/07/19 04:51 79 21 40 09/07/19 04:00 97.3 75 29 163/75 (104) 100 09/07/19 04:00 40 09/07/19 04:00 Mechanical Ventilator Mechanical Ventilator Mechanical Ventilator Mechanical Ventilator 09/07/19 03:15 80 09/07/19 03:00 77 23 136/68 (90) 100 09/07/19 02:49 80 18 100 Mechanical Ventilator 40 77 18 40 09/07/19 02:00 80 23 143/73 (96) 94 09/07/19 01:00 86 25 160/124 (136) 100 09/07/19 00:37 88 24 40 09/07/19 00:00 Mechanical Ventilator Mechanical Ventilator Mechanical Ventilator Mechanical Ventilator 09/07/19 00:00 98.7 80 40 143/67 (92) 100 09/07/19 00:00 40 Intake and Output 09/06/19 09/07/19 19:00 07:00 Intake Total 520 ml 205 ml Output Total 55 ml 148 ml Balance 465 ml 57 ml Intake Free Water 100 ml Tube Feeding 420 ml 175 ml Other 30 ml Output Urine Total 55 ml 145 ml Chest Tube Drainage Total 3 ml # Bowel Movements 3 2 Height (Feet): 5 Height (Inches): 4.00 Weight (Pounds): 114 Objective Debilitated frail woman NCAT (+) ETT supple scattered ronchi, (+) CT RR abd soft ND NT, (+) GT no edema Cristy Elizondo MD Sep 07, 2019 23:15
[2019-09-07] MEDS: DiphenhydrAMINE 50mg/ml Inj IVP PRN (23:36)
[2019-09-08] VITALS (24 sets, daily range): BP systolic 110–170; BP diastolic 56–130
--- NOTE | 2019-09-08 01:30 | Progress Note ---
DATE: 09/07/2019 SUBJECTIVE: The patient remains with chest tube. On ventilator support. Minimal output noted. Monitored rhythm, sinus. No recurring bradyarrhythmias. OBJECTIVE: VITAL SIGNS: Blood pressure 157/74, heart rate 91, respiratory rate 27. LUNGS: Bilateral breath sounds. Rhonchi, right greater than left. HEART: Regular rhythm and rate. Normal S1, S2. No appreciable murmur but respiratory sounds obscured. ABDOMEN: Soft. GJ-tube intact. EXTREMITIES: Trace edema. IMPRESSION: 1. Respiratory failure. 2. End-stage renal disease. 3. Pneumothorax status post chest tube. 4. Sinus node disease with resolved bradycardia. 5. Hypothyroidism status post intravenous replacement, now on oral replacement by feeding tube. 6. Acute on chronic diastolic congestive heart failure managed with ultrafiltration. 7. Hypertensive heart disease with slightly elevated blood pressure trend. PLAN: 1. Tracheostomy planned tomorrow. Stable from cardiovascular standpoint. 2. We will defer additional antihypertensive therapy pending this procedure. 3. Continue chest tube management and hemodialysis with ultrafiltration. Abel Stubbs M.D. DR: ALICIA JOB#: [id number] CC:
[2019-09-08] MEDS: Hydromorphone 0.5mg/0.5ml inj IVP PRN (01:41)
[2019-09-08] MEDS: Albuterol/Ipratropium 3ml neb HHN SCH ×5 (03:16→19:25)
[2019-09-08 04:32] LABS: BASOPHILS % (AUTO) 0.7 % (0.0-2.0); EOSINOPHILS % (AUTO) 1.2 % (0.0-3.0); HEMATOCRIT 29.1 % (37.0-47.0); LYMPHOCYTES % (AUTO) 27.5 % (20.0-45.0); MEAN CORPUSCULAR VOLUME 87 FL (80-99); NEUTROPHILS % (AUTO) 63.7 % (45.0-75.0); PLATELET COUNT 306 K/UL (150-450); RED BLOOD COUNT 3.33 M/UL (4.20-5.40); WHITE BLOOD COUNT 8.3 K/UL (4.8-10.8)
[2019-09-08] MEDS: HydrALAZINE 25mg tab NG SCH ×3 (05:22→18:43)
[2019-09-08 05:25] LABS: ALANINE AMINOTRANSFERASE 7 U/L (12-78); ALBUMIN 2.1 G/DL (3.4-5.0); ALBUMIN/GLOBULIN RATIO 0.5 (1.0-2.7); ALKALINE PHOSPHATASE 116 U/L (46-116); ANION GAP 8 mmol/L (5-15); ASPARTATE AMINO TRANSFERASE 26 U/L (15-37); BILIRUBIN,TOTAL 0.5 MG/DL (0.2-1.0); BLOOD UREA NITROGEN 53 mg/dL (7-18); CALCIUM 9.7 MG/DL (8.5-10.1); CARBON DIOXIDE 28 MMOL/L (21-32); CHLORIDE 103 MMOL/L (98-107); CREATININE 3.8 MG/DL (0.55-1.30); PHOSPHORUS 2.7 MG/DL (2.5-4.9); POTASSIUM 3.9 MMOL/L (3.5-5.1); SODIUM 139 MMOL/L (136-145)
--- NOTE | 2019-09-08 07:56 | General Progress Note ---
Assessment/Plan Problem List: (1) Failure to thrive (0-17) ICD Codes: R62.51 - Failure to thrive (0-17) SNOMED: 362057568 (2) Hypertensive kidney disease ICD Codes: I12.9 - Hypertensive chronic kidney disease with stage 1 through stage 4 chronic kidney disease, or unspecified chronic kidney disease SNOMED: 94507072 (3) Pneumonia ICD Codes: J18.9 - Pneumonia, unspecified organism SNOMED: 466556904 Qualifiers: Qualified Codes: J18.9 - Pneumonia, unspecified organism (4) ESRD (end stage renal disease) ICD Codes: N18.6 - End stage renal disease SNOMED: 19758623 (5) Septic arthritis ICD Codes: M00.9 - Pyogenic arthritis, unspecified SNOMED: 402990133 (6) Thrombocytopenia ICD Codes: D69.6 - Thrombocytopenia, unspecified SNOMED: 631817508 (7) Hypotension ICD Codes: I95.9 - Hypotension, unspecified SNOMED: 66843093 Qualifiers: Qualified Codes: I95.3 - Hypotension of hemodialysis (8) Malnutrition ICD Codes: E46 - Unspecified protein-calorie malnutrition SNOMED: 24868982 Status: stable, not improved, unchanged, deteriorating Assessment/Plan: cont resp care chest pt/suctioning resp rx monitor cbc transfuse as needed cont weaning- try simv monitor plts iv PPI iv abx HD bp rx chest tube management per surgery trach today Subjective ROS Limited/Unobtainable: No Constitutional: Reports: malaise, weakness HEENT: Reports: no symptoms Cardiovascular: Reports: no symptoms Respiratory: Reports: no symptoms Gastrointestinal/Abdominal: Reports: difficulty swallowing Genitourinary: Reports: no symptoms Neurologic/Psychiatric: Reports: anxiety, pre-existing deficit Endocrine: Reports: no symptoms Hematologic/Lymphatic: Reports: no symptoms Allergies: Coded Allergies: VANCOMYCIN (Unverified Allergy, Unknown, 08/02/19) All Systems: reviewed and negative except above Subjective no events, w/o complaints.stable s/p chest tube placement. tolerated well. alert. remains on the vent. minimal bloody output from ct. some serosanguinous drainage from ct site h/h remains stable Objective Last 24 Hour Vital Signs Date Time Temp Pulse Resp B/P (MAP) Pulse Ox O2 Delivery O2 Flow Rate FiO2 09/08/19 07:26 85 18 100 Mechanical Ventilator 40 85 18 40 09/08/19 07:00 89 24 113/77 (89) 100 09/08/19 06:27 86 19 09/08/19 06:00 99.2 84 22 147/102 (117) 100 09/08/19 05:22 170/102 09/08/19 05:10 85 18 40 09/08/19 05:00 86 28 170/102 (124) 100 09/08/19 04:00 Mechanical Ventilator Mechanical Ventilator Mechanical Ventilator Mechanical Ventilator 09/08/19 04:00 85 09/08/19 04:00 99.8 84 32 151/88 (109) 100 09/08/19 03:30 96 20 100 Mechanical Ventilator 40 09/08/19 03:15 84 18 Mechanical Ventilator 40 40 09/08/19 03:00 83 19 132/87 (102) 100 09/08/19 02:00 86 19 158/86 (110) 100 09/08/19 01:08 92 18 40 09/08/19 01:00 88 29 134/99 (111) 100 09/08/19 00:01 Mechanical Ventilator Mechanical Ventilator Mechanical Ventilator Mechanical Ventilator 09/08/19 00:00 40 09/08/19 00:00 89 09/08/19 00:00 99.7 89 25 140/77 (98) 100 09/07/19 23:36 142/85 09/07/19 23:30 91 18 100 Mechanical Ventilator 40 09/07/19 23:15 91 18 Mechanical Ventilator 40 40 09/07/19 23:00 90 29 142/85 (104) 83 09/07/19 22:00 85 20 117/62 (80) 100 09/07/19 21:20 90 20 40 09/07/19 21:00 93 29 118/87 (97) 100 09/07/19 20:00 99 09/07/19 20:00 98.0 87 18 133/107 (116) 100 09/07/19 20:00 Mechanical Ventilator Mechanical Ventilator Mechanical Ventilator Mechanical Ventilator 09/07/19 20:00 40 09/07/19 19:42 95 18 100 Mechanical Ventilator 40 09/07/19 19:27 85 18 Mechanical Ventilator 40 40 09/07/19 19:00 81 18 124/74 (91) 100 09/07/19 18:07 96 28 153/75 (101) 100 09/07/19 17:03 99 19 40 09/07/19 17:00 98 19 130/80 (97) 100 09/07/19 16:00 97.9 99 30 120/82 (95) 100 09/07/19 16:00 40 09/07/19 16:00 Mechanical Ventilator Mechanical Ventilator Mechanical Ventilator Mechanical Ventilator 09/07/19 16:00 98 09/07/19 15:03 92 20 100 Mechanical Ventilator 40 92 18 40 09/07/19 15:00 91 24 115/78 (90) 100 09/07/19 14:15 157/74 09/07/19 14:00 91 27 157/74 (101) 100 09/07/19 13:00 92 22 166/86 (112) 100 09/07/19 12:25 80 22 40 09/07/19 12:00 88 09/07/19 12:00 Mechanical Ventilator Mechanical Ventilator Mechanical Ventilator Mechanical Ventilator 09/07/19 12:00 88 27 160/66 (97) 100 09/07/19 12:00 40 09/07/19 11:03 82 21 100 Mechanical Ventilator 40 83 22 40 09/07/19 11:00 81 20 151/79 (103) 100 09/07/19 10:00 82 26 153/94 (113) 100 09/07/19 09:01 80 22 40 09/07/19 09:00 72 23 157/80 (105) 97 09/07/19 08:00 Mechanical Ventilator Mechanical Ventilator Mechanical Ventilator Mechanical Ventilator 09/07/19 08:00 70 09/07/19 08:00 40 09/07/19 08:00 97.6 79 21 155/72 (99) 100 Intake and Output 09/07/19 09/08/19 19:00 07:00 Intake Total 310 ml 235 ml Output Total 90 ml 60 ml Balance 220 ml 175 ml Intake Free Water 100 ml 60 ml Tube Feeding 210 ml 175 ml Output Urine Total 90 ml 60 ml # Bowel Movements 4 1 Laboratory Tests 09/08/19 03:33: White Blood Count 8.3, Red Blood Count 3.33L, Hemoglobin 10.0L, Hematocrit 29.1L , Mean Corpuscular Volume 87, Mean Corpuscular Hemoglobin 29.9, Mean Corpuscular Hemoglobin Concent 34.3, Red Cell Distribution Width 14.0, Platelet Count 306, Mean Platelet Volume 4.7L, Neutrophils (%) (Auto) 63.7, Lymphocytes ( %) (Auto) 27.5, Monocytes (%) (Auto) 7.0, Eosinophils (%) (Auto) 1.2, Basophils (%) (Auto) 0.7, Sodium Level 139, Potassium Level 3.9, Chloride Level 103, Carbon Dioxide Level 28, Anion Gap 8, Blood Urea Nitrogen 53H, Creatinine 3.8H, Estimat Glomerular Filtration Rate 11.4, Glucose Level 94, Calcium Level 9.7, Phosphorus Level 2.7, Magnesium Level 2.3, Total Bilirubin 0.5, Aspartate Amino Transf (AST/SGOT) 26, Alanine Aminotransferase (ALT/SGPT) 7L, Alkaline Phosphatase 116, C-Reactive Protein, Quantitative 18.1H, Pro-B-Type Natriuretic Peptide > 55860O, Total Protein 6.4, Albumin 2.1L, Globulin 4.3, Albumin/ Globulin Ratio 0.5L Height (Feet): 5 Height (Inches): 4.00 Weight (Pounds): 113 Objective General Appearance: WD/WN, awake/moaning. orally intubated Neck: supple Cardiovascular: normal rate Respiratory/Chest: rhonchi - bilaterally Abdomen: normal bowel sounds, non tender, soft, no organomegaly Edema: no edema noted Arm (L), no edema noted Arm (R), no edema noted Leg (L), no edema noted Leg (R), no edema noted Pedal (L), no edema noted Pedal (R), no edema noted Generalized Neurologic: disoriented, aphasia Nate Beltran MD Sep 08, 2019 07:56
--- NOTE | 2019-09-08 09:11 | Critical Care Progress Note ---
Assessment/Plan Assessment/Plan respiratory failure hemoptysis resolved hypoxemia chronic renal failure toxic met encephalopathy severe protein calorie malnutrition cachexia left lung whiteout/collapse, improved with intubation s/p intubation anemia ? blood loss pulmonary edema with elevated BNP + pleural effusion ? hemothorax s/p CT placement PLAN trach per surgery monitor for bleeding CT management - possible removal today care noted and reviewed monitor ins and outs reviewed care unable to wean off vent prognosis poor overall keep negative and monitor osmotic pressures ID and other specialist reviewed close follow up discussed elevated head and monitor ROM watch fluid status and keep negative nutrition and monitor residuals isolation as needed off load as able and monitor skin exam ROM as able ICU care and management critical at present requires ICU management and close follow up care feeds as able and monitor residuals medications/laboratory data/nursing notes/ICU care reviewed in detail note reviewed and edited care discussed with RN and RT ICU time spent >40 minutes coordinating care Critical Care - Subjective Interval Events: all care reviewed in ICU plans for trach noted imaging and labs reviewed ROS Limited/Unobtainable: Yes Condition: critical EKG Rhythm: Sinus Rhythm Residuals: minimal Tube Feeding Tolerated: yes I&O: Intake and Output 09/07/19 09/08/19 19:00 07:00 Intake Total 310 ml 235 ml Output Total 90 ml 60 ml Balance 220 ml 175 ml Intake Free Water 100 ml 60 ml Tube Feeding 210 ml 175 ml Output Urine Total 90 ml 60 ml # Bowel Movements 4 1 Critical Care - Objective ET-Tube: 7.0 ET Position: 19 Last 24 Hour Vital Signs Date Time Temp Pulse Resp B/P (MAP) Pulse Ox O2 Delivery O2 Flow Rate FiO2 09/08/19 08:59 99 19 40 09/08/19 08:00 40 09/08/19 08:00 98.7 96 25 164/97 (119) 100 09/08/19 08:00 96 09/08/19 08:00 Mechanical Ventilator Mechanical Ventilator Mechanical Ventilator Mechanical Ventilator 09/08/19 07:26 85 18 100 Mechanical Ventilator 40 85 18 40 09/08/19 07:00 89 24 113/77 (89) 100 09/08/19 06:27 86 19 09/08/19 06:00 99.2 84 22 147/102 (117) 100 09/08/19 05:22 170/102 09/08/19 05:10 85 18 40 09/08/19 05:00 86 28 170/102 (124) 100 09/08/19 04:00 Mechanical Ventilator Mechanical Ventilator Mechanical Ventilator Mechanical Ventilator 09/08/19 04:00 85 09/08/19 04:00 99.8 84 32 151/88 (109) 100 09/08/19 03:30 96 20 100 Mechanical Ventilator 40 09/08/19 03:15 84 18 Mechanical Ventilator 40 40 09/08/19 03:00 83 19 132/87 (102) 100 09/08/19 02:00 86 19 158/86 (110) 100 09/08/19 01:08 92 18 40 09/08/19 01:00 88 29 134/99 (111) 100 09/08/19 00:01 Mechanical Ventilator Mechanical Ventilator Mechanical Ventilator Mechanical Ventilator 09/08/19 00:00 40 09/08/19 00:00 89 09/08/19 00:00 99.7 89 25 140/77 (98) 100 09/07/19 23:36 142/85 09/07/19 23:30 91 18 100 Mechanical Ventilator 40 09/07/19 23:15 91 18 Mechanical Ventilator 40 40 09/07/19 23:00 90 29 142/85 (104) 83 09/07/19 22:00 85 20 117/62 (80) 100 09/07/19 21:20 90 20 40 09/07/19 21:00 93 29 118/87 (97) 100 09/07/19 20:00 99 09/07/19 20:00 98.0 87 18 133/107 (116) 100 09/07/19 20:00 Mechanical Ventilator Mechanical Ventilator Mechanical Ventilator Mechanical Ventilator 09/07/19 20:00 40 09/07/19 19:42 95 18 100 Mechanical Ventilator 40 09/07/19 19:27 85 18 Mechanical Ventilator 40 40 09/07/19 19:00 81 18 124/74 (91) 100 09/07/19 18:07 96 28 153/75 (101) 100 09/07/19 17:03 99 19 40 09/07/19 17:00 98 19 130/80 (97) 100 09/07/19 16:00 97.9 99 30 120/82 (95) 100 09/07/19 16:00 40 09/07/19 16:00 Mechanical Ventilator Mechanical Ventilator Mechanical Ventilator Mechanical Ventilator 09/07/19 16:00 98 09/07/19 15:03 92 20 100 Mechanical Ventilator 40 92 18 40 09/07/19 15:00 91 24 115/78 (90) 100 09/07/19 14:15 157/74 09/07/19 14:00 91 27 157/74 (101) 100 09/07/19 13:00 92 22 166/86 (112) 100 09/07/19 12:25 80 22 40 09/07/19 12:00 88 09/07/19 12:00 Mechanical Ventilator Mechanical Ventilator Mechanical Ventilator Mechanical Ventilator 09/07/19 12:00 88 27 160/66 (97) 100 09/07/19 12:00 40 09/07/19 11:03 82 21 100 Mechanical Ventilator 40 83 22 40 09/07/19 11:00 81 20 151/79 (103) 100 09/07/19 10:00 82 26 153/94 (113) 100 Labs: Labs Test 09/06/19 03:45 09/08/19 03:33 White Blood Count 7.0 K/UL (4.8-10.8) 8.3 K/UL (4.8-10.8) Red Blood Count 3.28 M/UL (4.20-5.40) 3.33 M/UL (4.20-5.40) Hemoglobin 9.8 G/DL (12.0-16.0) 10.0 G/DL (12.0-16.0) Hematocrit 29.2 % (37.0-47.0) 29.1 % (37.0-47.0) Mean Corpuscular Volume 89 FL (80-99) 87 FL (80-99) Mean Corpuscular Hemoglobin 29.9 PG (27.0-31.0) 29.9 PG (27.0-31.0) Mean Corpuscular Hemoglobin Concent 33.7 G/DL (32.0-36.0) 34.3 G/DL (32.0-36.0) Red Cell Distribution Width 14.3 % (11.6-14.8) 14.0 % (11.6-14.8) Platelet Count 259 K/UL (150-450) 306 K/UL (150-450) Mean Platelet Volume 5.0 FL (6.5-10.1) 4.7 FL (6.5-10.1) Neutrophils (%) (Auto) 70.9 % (45.0-75.0) 63.7 % (45.0-75.0) Lymphocytes (%) (Auto) 20.9 % (20.0-45.0) 27.5 % (20.0-45.0) Monocytes (%) (Auto) 5.5 % (1.0-10.0) 7.0 % (1.0-10.0) Eosinophils (%) (Auto) 2.1 % (0.0-3.0) 1.2 % (0.0-3.0) Basophils (%) (Auto) 0.6 % (0.0-2.0) 0.7 % (0.0-2.0) Sodium Level 142 MMOL/L (136-145) 139 MMOL/L (136-145) Potassium Level 3.4 MMOL/L (3.5-5.1) 3.9 MMOL/L (3.5-5.1) Chloride Level 106 MMOL/L (98-107) 103 MMOL/L (98-107) Carbon Dioxide Level 27 MMOL/L (21-32) 28 MMOL/L (21-32) Anion Gap 9 mmol/L (5-15) 8 mmol/L (5-15) Blood Urea Nitrogen 32 mg/dL (7-18) 53 mg/dL (7-18) Creatinine 2.9 MG/DL (0.55-1.30) 3.8 MG/DL (0.55-1.30) Estimat Glomerular Filtration Rate 15.7 mL/min (>60) 11.4 mL/min (>60) Glucose Level 145 MG/DL (74-106) 94 MG/DL (74-106) Calcium Level 8.9 MG/DL (8.5-10.1) 9.7 MG/DL (8.5-10.1) Phosphorus Level 2.7 MG/DL (2.5-4.9) 2.7 MG/DL (2.5-4.9) Magnesium Level 2.1 MG/DL (1.8-2.4) 2.3 MG/DL (1.8-2.4) Total Bilirubin 0.4 MG/DL (0.2-1.0) 0.5 MG/DL (0.2-1.0) Aspartate Amino Transf (AST/SGOT) 20 U/L (15-37) 26 U/L (15-37) Alanine Aminotransferase (ALT/SGPT) 14 U/L (12-78) 7 U/L (12-78) Alkaline Phosphatase 146 U/L (46-116) 116 U/L (46-116) Pro-B-Type Natriuretic Peptide > 43760 pg/mL (0-125) > 78509 pg/mL (0-125) Total Protein 6.0 G/DL (6.4-8.2) 6.4 G/DL (6.4-8.2) Albumin 2.0 G/DL (3.4-5.0) 2.1 G/DL (3.4-5.0) Globulin 4.0 g/dL 4.3 g/dL Albumin/Globulin Ratio 0.5 (1.0-2.7) 0.5 (1.0-2.7) C-Reactive Protein, Quantitative 18.1 mg/dL (0.00-0.90) Objective: WDWN NAD intubated reduced breath sounds scattered rhonchi; CT in place [id number] without MRG NABS nontender no HSM no CCE contractures feeding tube in place no distention reduced LOC and weak nonfocal cachectic reviewed and edited Accucheck: 84 Malcolm Cruz MD Sep 08, 2019 09:11
--- NOTE | 2019-09-08 09:57 | Infectious Diseases Prog Note ---
Assessment/Plan Assessment/Plan A; 1. Hailee sepsis treated 2. Klebsiella sepsis , treated 3. Right shoulder septic arthritis, status post surgery. 4. Diabetes. 5. Hypertension. 6. Anemia 7. Thrombocytopenia improving 9. Atelectasis , left lung collapse 10. Pleural effusion, hemothorax 11. Ulcerative esophagitis PLAN: 1. Observe off antibiotic Subjective ROS Limited/Unobtainable: Yes Respiratory: Reports: other - will have tracheostomy today Neurologic: Reports: confusion, other - on restraint Allergies: Coded Allergies: VANCOMYCIN (Unverified Allergy, Unknown, 08/02/19) Objective Vital Signs Last 24 Hour Vital Signs Date Time Temp Pulse Resp B/P (MAP) Pulse Ox O2 Delivery O2 Flow Rate FiO2 09/08/19 09:46 98 119/89 09/08/19 09:00 98 22 119/89 (99) 100 09/08/19 08:59 99 19 40 09/08/19 08:00 40 09/08/19 08:00 98.7 96 25 164/97 (119) 100 09/08/19 08:00 96 09/08/19 08:00 Mechanical Ventilator Mechanical Ventilator Mechanical Ventilator Mechanical Ventilator 09/08/19 07:26 85 18 100 Mechanical Ventilator 40 85 18 40 09/08/19 07:00 89 24 113/77 (89) 100 09/08/19 06:27 86 19 09/08/19 06:00 99.2 84 22 147/102 (117) 100 09/08/19 05:22 170/102 09/08/19 05:10 85 18 40 09/08/19 05:00 86 28 170/102 (124) 100 09/08/19 04:00 Mechanical Ventilator Mechanical Ventilator Mechanical Ventilator Mechanical Ventilator 09/08/19 04:00 85 09/08/19 04:00 99.8 84 32 151/88 (109) 100 09/08/19 03:30 96 20 100 Mechanical Ventilator 40 09/08/19 03:15 84 18 Mechanical Ventilator 40 40 09/08/19 03:00 83 19 132/87 (102) 100 09/08/19 02:00 86 19 158/86 (110) 100 09/08/19 01:08 92 18 40 09/08/19 01:00 88 29 134/99 (111) 100 09/08/19 00:01 Mechanical Ventilator Mechanical Ventilator Mechanical Ventilator Mechanical Ventilator 09/08/19 00:00 40 09/08/19 00:00 89 09/08/19 00:00 99.7 89 25 140/77 (98) 100 09/07/19 23:36 142/85 09/07/19 23:30 91 18 100 Mechanical Ventilator 40 09/07/19 23:15 91 18 Mechanical Ventilator 40 40 09/07/19 23:00 90 29 142/85 (104) 83 09/07/19 22:00 85 20 117/62 (80) 100 09/07/19 21:20 90 20 40 09/07/19 21:00 93 29 118/87 (97) 100 09/07/19 20:00 99 09/07/19 20:00 98.0 87 18 133/107 (116) 100 09/07/19 20:00 Mechanical Ventilator Mechanical Ventilator Mechanical Ventilator Mechanical Ventilator 09/07/19 20:00 40 09/07/19 19:42 95 18 100 Mechanical Ventilator 40 09/07/19 19:27 85 18 Mechanical Ventilator 40 40 09/07/19 19:00 81 18 124/74 (91) 100 09/07/19 18:07 96 28 153/75 (101) 100 09/07/19 17:03 99 19 40 09/07/19 17:00 98 19 130/80 (97) 100 09/07/19 16:00 97.9 99 30 120/82 (95) 100 09/07/19 16:00 40 09/07/19 16:00 Mechanical Ventilator Mechanical Ventilator Mechanical Ventilator Mechanical Ventilator 09/07/19 16:00 98 09/07/19 15:03 92 20 100 Mechanical Ventilator 40 92 18 40 09/07/19 15:00 91 24 115/78 (90) 100 09/07/19 14:15 157/74 09/07/19 14:00 91 27 157/74 (101) 100 09/07/19 13:00 92 22 166/86 (112) 100 09/07/19 12:25 80 22 40 09/07/19 12:00 88 09/07/19 12:00 Mechanical Ventilator Mechanical Ventilator Mechanical Ventilator Mechanical Ventilator 09/07/19 12:00 88 27 160/66 (97) 100 09/07/19 12:00 40 09/07/19 11:03 82 21 100 Mechanical Ventilator 40 83 22 40 3/25/20 11:00 81 20 151/79 (103) 100 09/07/19 10:00 82 26 153/94 (113) 100 Height (Feet): 5 Height (Inches): 4.00 Weight (Pounds): 108 General Appearance: cachetic HEENT: mucous membranes moist, other - orally intubated Respiratory/Chest: decreased breath sounds, other - left chest tube, on ventilator Abdomen: soft, non tender, other - GT feeding Genitourinary: other - Marroquin catheter Extremities: no edema Skin: rash, other - in left leg Neurologic/Psychiatric: disoriented Musculoskeletal: atrophy Laboratory Tests Test 09/08/19 03:33 White Blood Count 8.3 K/UL (4.8-10.8) Red Blood Count 3.33 M/UL (4.20-5.40) L Hemoglobin 10.0 G/DL (12.0-16.0) L Hematocrit 29.1 % (37.0-47.0) L Mean Corpuscular Volume 87 FL (80-99) Mean Corpuscular Hemoglobin 29.9 PG (27.0-31.0) Mean Corpuscular Hemoglobin Concent 34.3 G/DL (32.0-36.0) Red Cell Distribution Width 14.0 % (11.6-14.8) Platelet Count 306 K/UL (150-450) Mean Platelet Volume 4.7 FL (6.5-10.1) L Neutrophils (%) (Auto) 63.7 % (45.0-75.0) Lymphocytes (%) (Auto) 27.5 % (20.0-45.0) Monocytes (%) (Auto) 7.0 % (1.0-10.0) Eosinophils (%) (Auto) 1.2 % (0.0-3.0) Basophils (%) (Auto) 0.7 % (0.0-2.0) Sodium Level 139 MMOL/L (136-145) Potassium Level 3.9 MMOL/L (3.5-5.1) Chloride Level 103 MMOL/L (98-107) Carbon Dioxide Level 28 MMOL/L (21-32) Anion Gap 8 mmol/L (5-15) Blood Urea Nitrogen 53 mg/dL (7-18) H Creatinine 3.8 MG/DL (0.55-1.30) H Estimat Glomerular Filtration Rate 11.4 mL/min (>60) Glucose Level 94 MG/DL (74-106) Calcium Level 9.7 MG/DL (8.5-10.1) Phosphorus Level 2.7 MG/DL (2.5-4.9) Magnesium Level 2.3 MG/DL (1.8-2.4) Total Bilirubin 0.5 MG/DL (0.2-1.0) Aspartate Amino Transf (AST/SGOT) 26 U/L (15-37) Alanine Aminotransferase (ALT/SGPT) 7 U/L (12-78) L Alkaline Phosphatase 116 U/L (46-116) C-Reactive Protein, Quantitative 18.1 mg/dL (0.00-0.90) H Pro-B-Type Natriuretic Peptide > 05929 pg/mL (0-125) H Total Protein 6.4 G/DL (6.4-8.2) Albumin 2.1 G/DL (3.4-5.0) L Globulin 4.3 g/dL Albumin/Globulin Ratio 0.5 (1.0-2.7) L Current Medications Medications (Trade) Dose Ordered Sig/Javier Route PRN Reason Start Time Stop Time Status Last Admin Dose Admin Acetaminophen (Tylenol) 650 mg Q4H PRN GT Mild Pain/Temp > 100.5 09/03/19 07:00 10/03/19 06:59 09/03/19 08:36 Acetylcysteine (Mucomyst) 100 mg Q4HRT [facility] 08/31/19 19:00 11/29/19 18:59 09/08/19 08:35 Albuterol/ Ipratropium (Albuterol/ Ipratropium) 3 ml Q4HRT [facility] 09/05/19 23:00 09/10/19 22:59 09/08/19 08:34 Amlodipine Besylate (Norvasc) 5 mg BID NG 08/23/19 01:45 09/22/19 01:44 09/08/19 09:46 Atropine Sulfate (Atropine) 1 mg Q4H PRN IVP Per rx protocol 08/13/19 08:30 09/12/19 08:29 Chlorhexidine Gluconate (Nae-Hex 2%) 1 applic DAILY@1999 TOPIC 08/15/19 20:00 09/14/19 19:59 09/07/19 20:15 Dextrose (Dextrose 50%) 25 ml Q30M PRN IV Hypoglycemia 09/02/19 06:15 12/01/19 06:14 09/04/19 12:11 Dextrose (Dextrose 50%) 50 ml Q30M PRN IV Hypoglycemia 09/02/19 06:15 12/01/19 06:14 Diphenhydramine HCl (Benadryl) 50 mg Q4H PRN IVP Itching 08/09/19 14:30 09/08/19 14:29 09/07/19 23:36 Epoetin Thomas (Epoetin Thomas(ESRD on dialysis)) 4,000 unit SUBQ 08/12/19 21:00 09/11/19 20:59 09/07/19 21:10 Hydralazine HCl (Apresoline) 10 mg Q4H PRN IV For High Blood Pressure 08/18/19 12:44 09/17/19 12:43 09/01/19 20:27 Hydralazine HCl (Apresoline) 25 mg Q6HR NG 08/23/19 06:00 09/22/19 05:59 09/08/19 05:22 Hydromorphone HCl (Dilaudid) 0.5 mg Q4H PRN IVP Pain Scale (6-10) 09/03/19 07:00 09/10/19 06:59 09/08/19 01:41 Lansoprazole (Prevacid) 30 mg BID GT 08/19/19 09:00 09/18/19 08:59 09/08/19 09:45 Levothyroxine Sodium (Synthroid) 50 mcg DAILY@0630 ORAL 08/25/19 06:30 09/24/19 06:29 09/08/19 05:24 Metoclopramide HCl (Reglan) 5 mg Q8H PRN IVP Nausea & Vomiting 08/09/19 12:39 09/08/19 12:38 Midazolam HCl 100 ml @ 0 mls/hr Q24H PRN IV Agitation 09/05/19 18:15 09/12/19 18:14 Warren Parks MD Sep 08, 2019 09:57
[2019-09-08] MEDS ORDERED: Lidocaine 1% 10mg/ml/Epi 0.005mg/ml 30ml vial INJ ONE (11:28)
[2019-09-08] MEDS ORDERED: Rocuronium Bromide 50mg/5ml Inj IV ONE (12:09)
[2019-09-08] MEDS ORDERED: NS Irrig 1000ml ONE (12:30)
[2019-09-08] MEDS ORDERED: Sterile Water Irrig 1000ml IRRIG ONE (12:30)
--- NOTE | 2019-09-08 12:35 | Hematology/Onc Progress Note ---
Assessment/Plan Assessment/Plan # Thrombocytopenia - potential causes multifactorial, evaluate liver and viral etiologies to begin, in this case due to sepsis with septic shock also with cirrhosis and liver disease --> Hep panel and HIV ordered -> neg --> US abd to evaluate for cirrhosis and hsm ordered --> reviewed --> Peripheral smear ordered to evaluate for blasts /schistocytes --> abx and other meds have been reviewed --> ok for ppx if plt >50k w/ either heparin or lovenox --> Transfuse if Plt < 20k and fever, or if Plt < 10k without fever --> okay for permacath change once plt better--> for 08/14 --> plt trend: 43-->83-->237k-->292-->341-->315-->388 -->444-->530 # Anemia of chronic disease due to underlying chronic medical issues, multifactorial v Gi bleed --> Anemia workup has been ordered, rule out gi bleed --> No evidence of hemolysis is noted, peripheral smear has been reviewed. --> Hgb goal >7. Transfuse prn. --> Epogen has been started --> HOLD OFF IRON ferritin is >1000 --> Medications have been reviewed --> low threshold for gi evaluation in case has occult + --> hgb 9-->6.7-->9.2 -->10.5-->10.6 -->10.7-->10-->10.5-->9.8-->10.4-->9.5--> 3.6-->9.6-->9.7-->10 --> blood tx: 08/11, 08/31 --> CT Chest pendig r/o hemothorax --> does show Confirmation of a large left hemothorax. Complete atelectasis of the left lower lobe and partial left upper lobe atelectasis demonstrated. Mild rightward shift of the heart and mediastinum. # Sepsis with shock. --> abx as per id, recs noted --> pressors as needed # Healthcare-associated pneumonia. --> recs reviewed --> abx: jung/micafungin-->jung --> 08/24 us chest: moderate left pleural effusion # Severe protein-calorie malnutrition. --> nutritional support # End-stage renal disease --> had as renal hd --> with permacath # History of hypertension. --> per cards, now with Bradycardia. # resp failure s/p vent/trach # HypoThyroid # Ngt feedings # Dvt ppx scd's The timing of this note does not necessarily reflect the time of the patient was seen. Greatly appreciate consultation. Subjective Constitutional: Denies: no symptoms, chills, fever, malaise, weakness, other HEENT: Denies: no symptoms, eye pain, blurred vision, tearing, double vision, ear pain, ear discharge, nose pain, nose congestion, throat pain, throat swelling, mouth pain, mouth swelling, other Cardiovascular: Denies: no symptoms, chest pain, edema, irregular heart rate, lightheadedness, palpitations, syncope, other Respiratory: Denies: no symptoms, cough, shortness of breath, SOB with excertion, SOB at rest, sputum, wheezing, other Gastrointestinal/Abdominal: Denies: no symptoms, abdomen distended, abdominal pain, black stools, tarry stools, blood in stool, constipated, diarrhea, difficulty swallowing, nausea, poor appetite, poor fluid intake, rectal bleeding , vomiting, other Neurologic/Psychiatric: Denies: no symptoms, anxiety, depressed, emotional problems, headache, numbness, paresthesia, pre-existing deficit, seizure, tingling, tremors, weakness, other Hematologic/Lymphatic: Denies: no symptoms, anemia, easy bleeding, easy bruising, adenopathy, other Allergies: Coded Allergies: VANCOMYCIN (Unverified Allergy, Unknown, 08/02/19) Subjective 08/11: no bleeding or chills, labs reviewed, no major bleeding, plt less than 50k 08/12: icu, s/p blood, hgb improved to 9.2, 08/14: icu, pending consent for thora and permacath, labs reviewed 08/15: new permacath placed, no bleeding, for hd, plt much improved, started lovenox sq 08/16: ett to be adjusted, bp on high end, micafungin started, possible bronch 08/17: weaning as per pulm, no events otherwise, labs noted 3/6: no events no bleeding, remains confused on vent, for hd 08/20: icu, failed to wean, labs reviewed, jung 08/21: resting in bed, no overnight events, labs reviewed 08/22: awake, confused, restraints, no overnight events 08/23: no events, no bleeding, on ppi bid 08/24: icu, failed to wean, labs reviewed 08/25: no overnight events, us chest, restraints, afebrile 08/26 difficult in weaning, nad, seen by surg, pulm labs noted 08/27 awake on restraints, thoracentesis for am, labs reviewed 08/29 no bleeding, no night sweats, no major changes, on ppi bid 08/30 no major events, remains on vent, no bleeding, dw pcp 08/31 hgb dropped to 3.6, has been transfused with prbc, in icu, dw Rn, ct chest pend 09/01 no major events, no bleeding, labs noted, hgb remains low, hgb 9.6 09/03 lethargic, left chest tube dry/intact, off abx, vent 09/04 remains on a vent, synthroid, labs reviewed 09/05 awake and alert, no acute events, hgb 9.8, no new orders 09/06 no bleeding or chills, labs noted, no major events overnight, david rn 09/07 no events, no night sweats, no bleeding, no fc, remains agitated in the am Objective Objective Current Medications Medications (Trade) Dose Ordered Sig/Javier Route PRN Reason Start Time Stop Time Status Last Admin Dose Admin Acetaminophen (Tylenol) 650 mg Q4H PRN GT Mild Pain/Temp > 100.5 09/03/19 07:00 10/03/19 06:59 09/03/19 08:36 Acetylcysteine (Mucomyst) 100 mg Q4HRT [facility] 08/31/19 19:00 11/29/19 18:59 09/08/19 11:15 Albuterol/ Ipratropium (Albuterol/ Ipratropium) 3 ml Q4HRT [facility] 09/05/19 23:00 09/10/19 22:59 09/08/19 11:15 Amlodipine Besylate (Norvasc) 5 mg BID NG 08/23/19 01:45 09/22/19 01:44 09/08/19 09:46 Atropine Sulfate (Atropine) 1 mg Q4H PRN IVP Per rx protocol 08/13/19 08:30 09/12/19 08:29 Chlorhexidine Gluconate (Nae-Hex 2%) 1 applic DAILY@2000 TOPIC 08/15/19 20:00 09/14/19 19:59 09/07/19 20:15 Dextrose (Dextrose 50%) 25 ml Q30M PRN IV Hypoglycemia 09/02/19 06:15 12/01/19 06:14 09/04/19 12:11 Dextrose (Dextrose 50%) 50 ml Q30M PRN IV Hypoglycemia 09/02/19 06:15 12/01/19 06:14 Diphenhydramine HCl (Benadryl) 50 mg Q4H PRN IVP Itching 08/09/19 14:30 09/08/19 14:29 09/07/19 23:36 Epoetin Thomas (Epoetin Thomas(ESRD on dialysis)) 4,000 unit SUBQ 08/12/19 21:00 09/11/19 20:59 09/07/19 21:10 Hydralazine HCl (Apresoline) 10 mg Q4H PRN IV For High Blood Pressure 08/18/19 12:44 09/17/19 12:43 09/01/19 20:27 Hydralazine HCl (Apresoline) 25 mg Q6HR NG 08/23/19 06:00 09/22/19 05:59 09/08/19 12:27 Hydromorphone HCl (Dilaudid) 0.5 mg Q4H PRN IVP Pain Scale (6-10) 09/03/19 07:00 09/10/19 06:59 09/08/19 01:41 Lansoprazole (Prevacid) 30 mg BID GT 08/19/19 09:00 09/18/19 08:59 09/08/19 09:45 Levothyroxine Sodium (Synthroid) 50 mcg DAILY@0630 ORAL 08/25/19 06:30 09/24/19 06:29 09/08/19 05:24 Metoclopramide HCl (Reglan) 5 mg Q8H PRN IVP Nausea & Vomiting 08/09/19 12:39 09/08/19 12:38 Midazolam HCl 100 ml @ 0 mls/hr Q24H PRN IV Agitation 09/05/19 18:15 09/12/19 18:14 Last 24 Hour Vital Signs Date Time Temp Pulse Resp B/P (MAP) Pulse Ox O2 Delivery O2 Flow Rate FiO2 09/08/19 12:27 143/73 09/08/19 12:00 Mechanical Ventilator Mechanical Ventilator Mechanical Ventilator Mechanical Ventilator 09/08/19 12:00 97.8 89 24 143/73 (96) 100 09/08/19 12:00 94 09/08/19 12:00 40 09/08/19 11:16 89 20 100 Mechanical Ventilator 40 90 20 40 09/08/19 11:00 91 20 145/92 (109) 99 09/08/19 10:00 90 22 158/71 (100) 98 09/08/19 09:46 98 119/89 09/08/19 09:00 98 22 119/89 (99) 100 09/08/19 08:59 99 19 40 09/08/19 08:00 40 09/08/19 08:00 98.7 96 25 164/97 (119) 100 09/08/19 08:00 96 09/08/19 08:00 Mechanical Ventilator Mechanical Ventilator Mechanical Ventilator Mechanical Ventilator 09/08/19 07:26 85 18 100 Mechanical Ventilator 40 85 18 40 09/08/19 07:00 89 24 113/77 (89) 100 09/08/19 06:27 86 19 09/08/19 06:00 99.2 84 22 147/102 (117) 100 09/08/19 05:22 170/102 09/08/19 05:10 85 18 40 09/08/19 05:00 86 28 170/102 (124) 100 09/08/19 04:00 Mechanical Ventilator Mechanical Ventilator Mechanical Ventilator Mechanical Ventilator 09/08/19 04:00 85 09/08/19 04:00 99.8 84 32 151/88 (109) 100 09/08/19 03:30 96 20 100 Mechanical Ventilator 40 09/08/19 03:15 84 18 Mechanical Ventilator 40 40 09/08/19 03:00 83 19 132/87 (102) 100 09/08/19 02:00 86 19 158/86 (110) 100 09/08/19 01:08 92 18 40 09/08/19 01:00 88 29 134/99 (111) 100 09/08/19 00:01 Mechanical Ventilator Mechanical Ventilator Mechanical Ventilator Mechanical Ventilator 09/08/19 00:00 40 09/08/19 00:00 89 09/08/19 00:00 99.7 89 25 140/77 (98) 100 09/07/19 23:36 142/85 09/07/19 23:30 91 18 100 Mechanical Ventilator 40 09/07/19 23:15 91 18 Mechanical Ventilator 40 40 09/07/19 23:00 90 29 142/85 (104) 83 09/07/19 22:00 85 20 117/62 (80) 100 09/07/19 21:20 90 20 40 09/07/19 21:00 93 29 118/87 (97) 100 09/07/19 20:00 99 09/07/19 20:00 98.0 87 18 133/107 (116) 100 09/07/19 20:00 Mechanical Ventilator Mechanical Ventilator Mechanical Ventilator Mechanical Ventilator 09/07/19 20:00 40 09/07/19 19:42 95 18 100 Mechanical Ventilator 40 09/07/19 19:27 85 18 Mechanical Ventilator 40 40 09/07/19 19:00 81 18 124/74 (91) 100 09/07/19 18:07 96 28 153/75 (101) 100 09/07/19 17:03 99 19 40 09/07/19 17:00 98 19 130/80 (97) 100 09/07/19 16:00 97.9 99 30 120/82 (95) 100 09/07/19 16:00 40 09/07/19 16:00 Mechanical Ventilator Mechanical Ventilator Mechanical Ventilator Mechanical Ventilator 09/07/19 16:00 98 09/07/19 15:03 92 20 100 Mechanical Ventilator 40 92 18 40 09/07/19 15:00 91 24 115/78 (90) 100 09/07/19 14:15 157/74 09/07/19 14:00 91 27 157/74 (101) 100 09/07/19 13:00 92 22 166/86 (112) 100 09/07/19 12:25 80 22 40 09/07/19 12:00 88 09/07/19 12:00 Mechanical Ventilator Mechanical Ventilator Mechanical Ventilator Mechanical Ventilator 09/07/19 12:00 88 27 160/66 (97) 100 09/07/19 12:00 40 09/07/19 11:03 82 21 100 Mechanical Ventilator 40 83 22 40 09/07/19 11:00 81 20 151/79 (103) 100 09/07/19 10:00 82 26 153/94 (113) 100 09/07/19 09:01 80 22 40 09/07/19 09:00 72 23 157/80 (105) 97 09/07/19 08:00 Mechanical Ventilator Mechanical Ventilator Mechanical Ventilator Mechanical Ventilator 09/07/19 08:00 70 09/07/19 08:00 40 09/07/19 08:00 97.6 79 21 155/72 (99) 100 09/07/19 07:27 68 18 100 Mechanical Ventilator 40 70 18 40 09/07/19 07:00 73 23 141/67 (91) 97 09/07/19 06:30 73 18 09/07/19 06:00 71 25 143/68 (93) 100 09/07/19 05:48 146/70 09/07/19 05:00 82 25 142/93 (109) 100 09/07/19 04:51 79 21 40 09/07/19 04:00 97.3 75 29 163/75 (104) 100 09/07/19 04:00 40 09/07/19 04:00 Mechanical Ventilator Mechanical Ventilator Mechanical Ventilator Mechanical Ventilator 09/07/19 03:15 80 09/07/19 03:00 77 23 136/68 (90) 100 09/07/19 02:49 80 18 100 Mechanical Ventilator 40 77 18 40 09/07/19 02:00 80 23 143/73 (96) 94 09/07/19 01:00 86 25 160/124 (136) 100 09/07/19 00:37 88 24 40 09/07/19 00:00 Mechanical Ventilator Mechanical Ventilator Mechanical Ventilator Mechanical Ventilator 09/07/19 00:00 98.7 80 40 143/67 (92) 100 09/07/19 00:00 40 09/06/19 23:13 157/79 09/06/19 23:08 78 09/06/19 23:00 83 24 157/79 (105) 100 09/06/19 22:32 79 18 98 Mechanical Ventilator 40 82 18 40 09/06/19 22:00 83 22 139/65 (89) 95 09/06/19 21:27 83 18 100 Mechanical Ventilator 40 93 19 40 09/06/19 21:00 88 28 143/65 (91) 100 09/06/19 20:00 99.8 115 35 143/65 (91) 100 09/06/19 20:00 40 09/06/19 20:00 Mechanical Ventilator Mechanical Ventilator Mechanical Ventilator Mechanical Ventilator 09/06/19 19:53 115 09/06/19 19:32 91 25 100 Mechanical Ventilator 40 93 19 40 09/06/19 19:00 90 24 134/64 (87) 92 09/06/19 18:00 91 23 147/69 (95) 100 09/06/19 17:00 97.8 86 26 149/66 (93) 100 09/06/19 16:38 76 22 100 Mechanical Ventilator 40 76 18 40 09/06/19 16:00 78 09/06/19 16:00 78 19 142/63 (89) 100 09/06/19 16:00 Mechanical Ventilator Mechanical Ventilator Mechanical Ventilator Mechanical Ventilator 09/06/19 16:00 40 09/06/19 15:05 76 18 40 09/06/19 15:00 76 17 136/66 (89) 100 09/06/19 14:00 80 20 141/65 (90) 100 09/06/19 13:25 93 22 40 09/06/19 13:00 85 19 140/65 (90) 100 Intake and Output 09/07/19 09/08/19 19:00 07:00 Intake Total 310 ml 235 ml Output Total 90 ml 60 ml Balance 220 ml 175 ml Intake Free Water 100 ml 60 ml Tube Feeding 210 ml 175 ml Output Urine Total 90 ml 60 ml # Bowel Movements 4 1 Labs Test 09/06/19 03:45 09/08/19 03:33 White Blood Count 7.0 K/UL (4.8-10.8) 8.3 K/UL (4.8-10.8) Red Blood Count 3.28 M/UL (4.20-5.40) 3.33 M/UL (4.20-5.40) Hemoglobin 9.8 G/DL (12.0-16.0) 10.0 G/DL (12.0-16.0) Hematocrit 29.2 % (37.0-47.0) 29.1 % (37.0-47.0) Mean Corpuscular Volume 89 FL (80-99) 87 FL (80-99) Mean Corpuscular Hemoglobin 29.9 PG (27.0-31.0) 29.9 PG (27.0-31.0) Mean Corpuscular Hemoglobin Concent 33.7 G/DL (32.0-36.0) 34.3 G/DL (32.0-36.0) Red Cell Distribution Width 14.3 % (11.6-14.8) 14.0 % (11.6-14.8) Platelet Count 259 K/UL (150-450) 306 K/UL (150-450) Mean Platelet Volume 5.0 FL (6.5-10.1) 4.7 FL (6.5-10.1) Neutrophils (%) (Auto) 70.9 % (45.0-75.0) 63.7 % (45.0-75.0) Lymphocytes (%) (Auto) 20.9 % (20.0-45.0) 27.5 % (20.0-45.0) Monocytes (%) (Auto) 5.5 % (1.0-10.0) 7.0 % (1.0-10.0) Eosinophils (%) (Auto) 2.1 % (0.0-3.0) 1.2 % (0.0-3.0) Basophils (%) (Auto) 0.6 % (0.0-2.0) 0.7 % (0.0-2.0) Sodium Level 142 MMOL/L (136-145) 139 MMOL/L (136-145) Potassium Level 3.4 MMOL/L (3.5-5.1) 3.9 MMOL/L (3.5-5.1) Chloride Level 106 MMOL/L (98-107) 103 MMOL/L (98-107) Carbon Dioxide Level 27 MMOL/L (21-32) 28 MMOL/L (21-32) Anion Gap 9 mmol/L (5-15) 8 mmol/L (5-15) Blood Urea Nitrogen 32 mg/dL (7-18) 53 mg/dL (7-18) Creatinine 2.9 MG/DL (0.55-1.30) 3.8 MG/DL (0.55-1.30) Estimat Glomerular Filtration Rate 15.7 mL/min (>60) 11.4 mL/min (>60) Glucose Level 145 MG/DL (74-106) 94 MG/DL (74-106) Calcium Level 8.9 MG/DL (8.5-10.1) 9.7 MG/DL (8.5-10.1) Phosphorus Level 2.7 MG/DL (2.5-4.9) 2.7 MG/DL (2.5-4.9) Magnesium Level 2.1 MG/DL (1.8-2.4) 2.3 MG/DL (1.8-2.4) Total Bilirubin 0.4 MG/DL (0.2-1.0) 0.5 MG/DL (0.2-1.0) Aspartate Amino Transf (AST/SGOT) 20 U/L (15-37) 26 U/L (15-37) Alanine Aminotransferase (ALT/SGPT) 14 U/L (12-78) 7 U/L (12-78) Alkaline Phosphatase 146 U/L (46-116) 116 U/L (46-116) Pro-B-Type Natriuretic Peptide > 81205 pg/mL (0-125) > 49945 pg/mL (0-125) Total Protein 6.0 G/DL (6.4-8.2) 6.4 G/DL (6.4-8.2) Albumin 2.0 G/DL (3.4-5.0) 2.1 G/DL (3.4-5.0) Globulin 4.0 g/dL 4.3 g/dL Albumin/Globulin Ratio 0.5 (1.0-2.7) 0.5 (1.0-2.7) C-Reactive Protein, Quantitative 18.1 mg/dL (0.00-0.90) Height (Feet): 5 Height (Inches): 4.00 Weight (Pounds): 109 Objective gen: nad pulm: on trach+ / vent, decreased breath sounds left, chest tube+ cv: rrr, no gmr abd: sfot, nt, nd ++ gt ext: no cce Gio Rob MD Sep 08, 2019 12:35
--- NOTE | 2019-09-08 12:36 | Immediate Post-Op Evaluation ---
Immediate Post-Op Evalulation Immediate Post-Op Evalulation Procedure: Tracheostomy Date of Evaluation: Sep 08, 2019 Time of Evaluation: 13:42 IV Fluids: 10 NS Blood Products: 0 Estimated Blood Loss: 10 Urinary Output: 0 Blood Pressure Systolic: 97 Blood Pressure Diastolic: 56 Pulse Rate: 82 Respiratory Rate: 20 - Mech Vent O2 Sat by Pulse Oximetry: 100 Temperature (Fahrenheit): 98.6 Pain Score (1-10): 0 Nausea: No Vomiting: No Complications 0 Patient Status: no response, patent, ventilated, none Hydration Status: adequate Dru Gram Ancef IV Given Within 1 Hr of Incision: Yes Time Given: 12:54 Bony Hurtado MD Sep 08, 2019 12:35
--- NOTE | 2019-09-08 13:30 | Brief Operative Note ---
Immediate Post Operative Note Operative Note Pre-op Diagnosis: respiratory insufficiency requiring prolonged ventilatory support Procedure: 1. tracheostomy 2 removal of left tube thoracostomy Post-op Diagnosis: same Surgeon: diaz Anesthesia: general, local Specimen: none Complications: none Condition: stable Fluids: n/a Estimated Blood Loss: minimal Drains: none Implant(s) used?: No Camilo James Sep 08, 2019 13:30
--- NOTE | 2019-09-08 14:02 | Nephrology Progress Note ---
Assessment/Plan Problem List: (1) ESRD (end stage renal disease) on dialysis (2) Malnutrition (3) Anemia in CKD (chronic kidney disease) (4) Hypotension (5) Thrombocytopenia (6) Sepsis Assessment: klebsiella in blood Assessment -Early sepsis with shock. -Healthcare-associated pneumonia. -Severe protein-calorie malnutrition. -Thrombocytopenia. - End-stage renal disease. - History of hypertension. - Bradycardia. - HypoThyroid Plan Tracheostomy today September 07 2 for dialysis today September 07 Continues to have chest tube on the left side was put in on September 01 Patient transfused 3 units of packed RBCs for low hemoglobin Been stable today Remains full code Last dialysis September 03 Due to her overall medical condition I favor DNR and comfort care Blood pressure fluctuating, will start hydralazine via NG tube for blood pressure Magnesium and potassium supplement intravenously as needed Patient underwent PEG placement August 16 patient remains intubated on ventilator Discussed with RN Aim to wean from ventilator or consider tracheostomy Permacath was removed on August 12 Dialysis 08/11 Transfusion as needed Patient had hematemesis meds IV as possible Surveillance blood cultures tomorrow Plan to put the permacath back in on Thursday if cultures are negative keep BP and BS in check Inflammatory markers per orders Subjective ROS Limited/Unobtainable: Yes Objective Objective Last 24 Hour Vital Signs Date Time Temp Pulse Resp B/P (MAP) Pulse Ox O2 Delivery O2 Flow Rate FiO2 09/08/19 13:30 84 14 100 09/08/19 13:26 82 110/58 (75) 09/08/19 13:25 82 20 100 09/08/19 12:27 143/73 09/08/19 12:00 Mechanical Ventilator Mechanical Ventilator Mechanical Ventilator Mechanical Ventilator 09/08/19 12:00 97.8 89 24 143/73 (96) 100 09/08/19 12:00 94 09/08/19 12:00 40 09/08/19 11:16 89 20 100 Mechanical Ventilator 40 90 20 40 09/08/19 11:00 91 20 145/92 (109) 99 09/08/19 10:00 90 22 158/71 (100) 98 09/08/19 09:46 98 119/89 09/08/19 09:00 98 22 119/89 (99) 100 09/08/19 08:59 99 19 40 09/08/19 08:00 40 09/08/19 08:00 98.7 96 25 164/97 (119) 100 09/08/19 08:00 96 09/08/19 08:00 Mechanical Ventilator Mechanical Ventilator Mechanical Ventilator Mechanical Ventilator 09/08/19 07:26 85 18 100 Mechanical Ventilator 40 85 18 40 09/08/19 07:00 89 24 113/77 (89) 100 09/08/19 06:27 86 19 09/08/19 06:00 99.2 84 22 147/102 (117) 100 09/08/19 05:22 170/102 09/08/19 05:10 85 18 40 09/08/19 05:00 86 28 170/102 (124) 100 09/08/19 04:00 Mechanical Ventilator Mechanical Ventilator Mechanical Ventilator Mechanical Ventilator 09/08/19 04:00 85 09/08/19 04:00 99.8 84 32 151/88 (109) 100 09/08/19 03:30 96 20 100 Mechanical Ventilator 40 09/08/19 03:15 84 18 Mechanical Ventilator 40 40 09/08/19 03:00 83 19 132/87 (102) 100 09/08/19 02:00 86 19 158/86 (110) 100 09/08/19 01:08 92 18 40 09/08/19 01:00 88 29 134/99 (111) 100 09/08/19 00:01 Mechanical Ventilator Mechanical Ventilator Mechanical Ventilator Mechanical Ventilator 09/08/19 00:00 40 09/08/19 00:00 89 09/08/19 00:00 99.7 89 25 140/77 (98) 100 09/07/19 23:36 142/85 09/07/19 23:30 91 18 100 Mechanical Ventilator 40 09/07/19 23:15 91 18 Mechanical Ventilator 40 40 09/07/19 23:00 90 29 142/85 (104) 83 09/07/19 22:00 85 20 117/62 (80) 100 09/07/19 21:20 90 20 40 09/07/19 21:00 93 29 118/87 (97) 100 09/07/19 20:00 99 09/07/19 20:00 98.0 87 18 133/107 (116) 100 09/07/19 20:00 Mechanical Ventilator Mechanical Ventilator Mechanical Ventilator Mechanical Ventilator 09/07/19 20:00 40 09/07/19 19:42 95 18 100 Mechanical Ventilator 40 09/07/19 19:27 85 18 Mechanical Ventilator 40 40 09/07/19 19:00 81 18 124/74 (91) 100 09/07/19 18:07 96 28 153/75 (101) 100 09/07/19 17:03 99 19 40 09/07/19 17:00 98 19 130/80 (97) 100 09/07/19 16:00 97.9 99 30 120/82 (95) 100 09/07/19 16:00 40 09/07/19 16:00 Mechanical Ventilator Mechanical Ventilator Mechanical Ventilator Mechanical Ventilator 09/07/19 16:00 98 09/07/19 15:03 92 20 100 Mechanical Ventilator 40 92 18 40 09/07/19 15:00 91 24 115/78 (90) 100 09/07/19 14:15 157/74 Intake and Output 09/07/19 09/08/19 19:00 07:00 Intake Total 310 ml 235 ml Output Total 90 ml 60 ml Balance 220 ml 175 ml Intake Free Water 100 ml 60 ml Tube Feeding 210 ml 175 ml Output Urine Total 90 ml 60 ml # Bowel Movements 4 1 Laboratory Tests 09/08/19 03:33: White Blood Count 8.3, Red Blood Count 3.33L, Hemoglobin 10.0L, Hematocrit 29.1L , Mean Corpuscular Volume 87, Mean Corpuscular Hemoglobin 29.9, Mean Corpuscular Hemoglobin Concent 34.3, Red Cell Distribution Width 14.0, Platelet Count 306, Mean Platelet Volume 4.7L, Neutrophils (%) (Auto) 63.7, Lymphocytes ( %) (Auto) 27.5, Monocytes (%) (Auto) 7.0, Eosinophils (%) (Auto) 1.2, Basophils (%) (Auto) 0.7, Sodium Level 139, Potassium Level 3.9, Chloride Level 103, Carbon Dioxide Level 28, Anion Gap 8, Blood Urea Nitrogen 53H, Creatinine 3.8H, Estimat Glomerular Filtration Rate 11.4, Glucose Level 94, Calcium Level 9.7, Phosphorus Level 2.7, Magnesium Level 2.3, Total Bilirubin 0.5, Aspartate Amino Transf (AST/SGOT) 26, Alanine Aminotransferase (ALT/SGPT) 7L, Alkaline Phosphatase 116, C-Reactive Protein, Quantitative 18.1H, Pro-B-Type Natriuretic Peptide > 70770E, Total Protein 6.4, Albumin 2.1L, Globulin 4.3, Albumin/ Globulin Ratio 0.5L Height (Feet): 5 Height (Inches): 4.00 Weight (Pounds): 109 General Appearance: no apparent distress EENT: other - Now has tracheostomy Cardiovascular: tachycardia Respiratory/Chest: decreased breath sounds Abdomen: soft Objective no change William Blackwood MD Sep 08, 2019 14:02
--- NOTE | 2019-09-08 15:15 | Diagnostic Imaging Report ---
Indication: Dyspnea Comparison: 09/02/2019 A single view chest radiograph was obtained. Findings: Tracheostomy noted in good position. There is no pneumothorax. Hazy opacity obscures the left hemidiaphragm. The heart is borderline enlarged. There is a small right pleural effusion and atelectasis. Bones are osteopenic. IMPRESSION: Status post left chest tube removal. No pneumothorax. Status post tracheostomy. Probable small bilateral pleural effusion.
--- NOTE | 2019-09-08 16:15 | Operative Note - Dictated ---
DATE OF OPERATION: 09/08/2019 PREOPERATIVE DIAGNOSES: 1. Respiratory insufficiency requiring prolonged ventilatory support. 2. Left large hemothorax, status post tube thoracostomy. POSTOPERATIVE DIAGNOSES: 1. Respiratory insufficiency requiring prolonged ventilatory support. 2. Left large hemothorax, status post tube thoracostomy. OPERATION PERFORMED: 1. Tracheostomy. 2. Removal of left tube thoracostomy. ATTENDING SURGEON: Camilo James M.D. OPHTHALMOLOGIST RETINA SPECIALIST: None. ANESTHESIOLOGIST: Bony Hurtado M.D. ANESTHESIA: General GETA plus local. ESTIMATED BLOOD LOSS: Minimal. IV FLUIDS: Please see anesthesia records. COMPLICATIONS: None. DRAINS: None. COUNTS: Sponge and needle count correct x2. SPECIMENS: None. WOUND CLASSIFICATION: Class 1. ANTIBIOTICS: The patient on IV antibiotics. INDICATIONS FOR PROCEDURE: This is a 79-year-old female with multiple medical morbidities, very ill in the intensive care unit who declined requiring intubation, has been on ventilatory support sometime now with inability to wean off vent. Every weaning trial, the patient does not tolerate and immediately becomes hypoxic and apneic. Therefore, tracheostomy was indicated and recommended. Furthermore, the patient had a large left hemothorax which had tube thoracostomy placed recently as a result and since minimal drainage and no leak. Given these findings, surgery was indicated and recommended. Risks, benefits, alternatives were discussed to the patient's family who consented to procedure for patient given she is unable to consent at this time. OPERATIVE NOTE: The patient was taken to the operating room and placed on the operative table in supine position with bilateral arms well padded. All bony prominences well padded. SCDs placed. Preoperative time-out taken identifying the patient, procedure, operative staff, and surgical staff. Prior to entering the operative room, the patient had ET tube in place and a left tube thoracostomy. The shoulder roll was placed. The neck was extended. The neck was prepped and draped in standard surgical fashion. Local anesthetic was infiltrated in the proposed skin incision. A skin incision made 2 cm above the sternal notch and carried down through the platysma to the trachea. A trach hook was placed and the first and second tracheal rings were clearly identified and dissected for appropriate exposure. Following this, a incision was made around the tracheal ring and small window made and opened. The ET tube was clearly identified. The balloon of the ET tube was desufflated and with the guidance of an anesthesiologist, the ET tube withdrawn to above the level of the window. Following this, Sheeba tracheostomy was inserted under direct visualization without complication. Care was taken to ensure an appropriate positioning without complication. The balloon was insufflated. The patient was ventilated through the tracheostomy without complication. Good volumes noted. Trachea was suctioned. A 2-0 Monocryl skin stay sutures and trach tie were placed followed by dressings. The patient tolerated this portion of procedure well. At this time, after tracheostomy completed and the patient comfortable in the operating room, decision was made to remove the left tube thoracostomy which had evacuated the majority of the left hemothorax and without leaking, otherwise stable. The stay stitch was cut and the U-stitch was held in place and the tube was removed without complication. The U-stitch was tied down and the site was cleaned and dressings were applied. The patient tolerated this portion of the procedure well as well. At this time, the conclusion of the procedure and the patient was returned to the intensive care unit in stable condition. Camilo James M.D. DR: Ridge JOB#: [id number] CC: ISAI
[2019-09-08] MEDS: Dyna-Hex 2% Top Sol 2oz TOPIC SCH (19:56)
--- NOTE | 2019-09-08 20:43 | General Progress Note ---
Assessment/Plan Status: stable, not improved, unchanged, deteriorating Assessment/Plan: Assessment - Severe ulcerative esophagitis - Resp failure - s/p Chest tube - thrombocytopenia --> resolved - Renal failure - aspiration risk --> s/p PEG - anemia - bradycardia - Poor prognosis Recommendations - GT care - water flushes - elevate HOB - monitor H&H - vent Subjective Allergies: Coded Allergies: VANCOMYCIN (Unverified Allergy, Unknown, 08/02/19) Subjective Above noted No events overnight d/w RN Objective Last 24 Hour Vital Signs Date Time Temp Pulse Resp B/P (MAP) Pulse Ox O2 Delivery O2 Flow Rate FiO2 09/08/19 20:00 87 09/08/19 20:00 Mechanical Ventilator Mechanical Ventilator Mechanical Ventilator Mechanical Ventilator 09/08/19 20:00 97.9 94 36 158/83 (108) 99 09/08/19 19:25 86 19 100 Mechanical Ventilator 40 87 18 40 09/08/19 19:00 76 30 144/70 (94) 100 09/08/19 18:43 147/65 09/08/19 18:02 79 142/56 09/08/19 18:00 80 23 142/56 (84) 100 09/08/19 18:00 75 26 142/56 (84) 100 09/08/19 17:15 95 22 40 09/08/19 17:00 101 26 114/76 (89) 99 09/08/19 17:00 40 09/08/19 16:00 40 09/08/19 16:00 97.7 92 34 163/73 (103) 99 09/08/19 16:00 Mechanical Ventilator Mechanical Ventilator Mechanical Ventilator Mechanical Ventilator 09/08/19 16:00 107 09/08/19 15:20 93 19 40 09/08/19 15:00 94 30 133/81 (98) 100 09/08/19 14:03 86 129/70 (89) 100 09/08/19 13:30 40 09/08/19 13:26 82 20 110/58 (75) 99 09/08/19 13:25 82 20 100 09/08/19 12:27 143/73 09/08/19 12:00 Mechanical Ventilator Mechanical Ventilator Mechanical Ventilator Mechanical Ventilator 09/08/19 12:00 97.8 89 24 143/73 (96) 100 09/08/19 12:00 94 09/08/19 12:00 40 09/08/19 11:16 89 20 100 Mechanical Ventilator 40 90 20 40 09/08/19 11:00 91 20 145/92 (109) 99 09/08/19 10:00 90 22 158/71 (100) 98 09/08/19 09:46 98 119/89 09/08/19 09:00 98 22 119/89 (99) 100 09/08/19 08:59 99 19 40 09/08/19 08:00 40 09/08/19 08:00 98.7 96 25 164/97 (119) 100 09/08/19 08:00 96 09/08/19 08:00 Mechanical Ventilator Mechanical Ventilator Mechanical Ventilator Mechanical Ventilator 09/08/19 07:26 85 18 100 Mechanical Ventilator 40 85 18 40 09/08/19 07:00 89 24 113/77 (89) 100 09/08/19 06:27 86 19 09/08/19 06:00 99.2 84 22 147/102 (117) 100 09/08/19 05:22 170/102 09/08/19 05:10 85 18 40 09/08/19 05:00 86 28 170/102 (124) 100 09/08/19 04:00 Mechanical Ventilator Mechanical Ventilator Mechanical Ventilator Mechanical Ventilator 09/08/19 04:00 85 09/08/19 04:00 99.8 84 32 151/88 (109) 100 09/08/19 03:30 96 20 100 Mechanical Ventilator 40 09/08/19 03:15 84 18 Mechanical Ventilator 40 40 09/08/19 03:00 83 19 132/87 (102) 100 09/08/19 02:00 86 19 158/86 (110) 100 09/08/19 01:08 92 18 40 09/08/19 01:00 88 29 134/99 (111) 100 09/08/19 00:01 Mechanical Ventilator Mechanical Ventilator Mechanical Ventilator Mechanical Ventilator 09/08/19 00:00 40 09/08/19 00:00 89 09/08/19 00:00 99.7 89 25 140/77 (98) 100 09/07/19 23:36 142/85 09/07/19 23:30 91 18 100 Mechanical Ventilator 40 09/07/19 23:15 91 18 Mechanical Ventilator 40 40 09/07/19 23:00 90 29 142/85 (104) 83 09/07/19 22:00 85 20 117/62 (80) 100 09/07/19 21:20 90 20 40 09/07/19 21:00 93 29 118/87 (97) 100 Intake and Output 09/07/19 09/08/19 19:00 07:00 Intake Total 310 ml 235 ml Output Total 90 ml 60 ml Balance 220 ml 175 ml Intake Free Water 100 ml 60 ml Tube Feeding 210 ml 175 ml Output Urine Total 90 ml 60 ml # Bowel Movements 4 1 Laboratory Tests 09/08/19 03:33: White Blood Count 8.3, Red Blood Count 3.33L, Hemoglobin 10.0L, Hematocrit 29.1L , Mean Corpuscular Volume 87, Mean Corpuscular Hemoglobin 29.9, Mean Corpuscular Hemoglobin Concent 34.3, Red Cell Distribution Width 14.0, Platelet Count 306, Mean Platelet Volume 4.7L, Neutrophils (%) (Auto) 63.7, Lymphocytes ( %) (Auto) 27.5, Monocytes (%) (Auto) 7.0, Eosinophils (%) (Auto) 1.2, Basophils (%) (Auto) 0.7, Sodium Level 139, Potassium Level 3.9, Chloride Level 103, Carbon Dioxide Level 28, Anion Gap 8, Blood Urea Nitrogen 53H, Creatinine 3.8H, Estimat Glomerular Filtration Rate 11.4, Glucose Level 94, Calcium Level 9.7, Phosphorus Level 2.7, Magnesium Level 2.3, Total Bilirubin 0.5, Aspartate Amino Transf (AST/SGOT) 26, Alanine Aminotransferase (ALT/SGPT) 7L, Alkaline Phosphatase 116, C-Reactive Protein, Quantitative 18.1H, Pro-B-Type Natriuretic Peptide > 70376Y, Total Protein 6.4, Albumin 2.1L, Globulin 4.3, Albumin/ Globulin Ratio 0.5L Height (Feet): 5 Height (Inches): 4.00 Weight (Pounds): 109 Objective Debilitated frail woman NCAT (+) on vent supple scattered ronchi, (+) CT RR abd soft ND NT, (+) GT no edema Cristy Elizondo MD Sep 08, 2019 20:43
--- NOTE | 2019-09-08 22:14 | Progress Note ---
DATE: 09/08/2019 CARDIOLOGY PROGRESS NOTE SUBJECTIVE: The patient is status post tracheostomy today. She remains on ventilator support. Ongoing nutrition by G-tube. PHYSICAL EXAMINATION: VITAL SIGNS: Blood pressure 158/83, heart rate 94, respiratory rate 36, afebrile. HEENT: Thin secretions from the trach. No bleeding. LUNGS: Rhonchi. CARDIAC: Regular rhythm and rate. Normal S1, S2. ABDOMEN: Soft. EXTREMITIES: No edema. DIAGNOSTIC AND LABORATORY DATA: Chest x-ray reveals chest tube removal with no pneumothorax. White count 8, hemoglobin 10. Potassium 3.9. IMPRESSION: 1. Ventilator-dependent respiratory failure, status post tracheostomy, status post hemothorax with chest tube now removed. 2. Sinus bradycardia, recovered. 3. Hypothyroidism, improved with replacement. 4. Acute on chronic diastolic congestive heart failure. 5. Severe protein-calorie malnutrition. 6. End-stage renal disease, on hemodialysis. 7. Hypertensive heart disease. PLAN: 1. Weaning efforts. 2. Respiratory hygiene. 3. Protein supplement. 4. Hemodialysis with ultrafiltration. 5. No role for pacemaker. 6. Continue thyroid replacement. Abel Stubbs M.D. DR: NESS JOB#: [id number] CC:
[2019-09-09] VITALS (24 sets, daily range): BP systolic 109–169; BP diastolic 52–116
[2019-09-09] MEDS: HydrALAZINE 25mg tab NG SCH ×4 (06:11→17:16)
[2019-09-09] MEDS: Acetaminophen 650mg/20.3ml GT PRN (06:13)
[2019-09-09 06:38] LABS: BASOPHILS % (AUTO) 0.5 % (0.0-2.0); EOSINOPHILS % (AUTO) 0.7 % (0.0-3.0); HEMATOCRIT 31.4 % (37.0-47.0); HEMOGLOBIN 10.4 G/DL (12.0-16.0); LYMPHOCYTES % (AUTO) 26.6 % (20.0-45.0); MEAN CORPUSCULAR VOLUME 90 FL (80-99); MONOCYTES % (AUTO) 7.1 % (1.0-10.0); NEUTROPHILS % (AUTO) 65.1 % (45.0-75.0); PLATELET COUNT 252 K/UL (150-450); RED CELL DISTRIBUTION WIDTH 14.8 % (11.6-14.8); WHITE BLOOD COUNT 9.2 K/UL (4.8-10.8)
[2019-09-09] MEDS: Albuterol/Ipratropium 3ml neb HHN SCH ×5 (06:44→23:06)
--- NOTE | 2019-09-09 06:57 | Hematology/Onc Progress Note ---
Assessment/Plan Assessment/Plan # Thrombocytopenia - potential causes multifactorial, evaluate liver and viral etiologies to begin, in this case due to sepsis with septic shock also with cirrhosis and liver disease --> Hep panel and HIV ordered -> neg --> US abd to evaluate for cirrhosis and hsm ordered --> reviewed --> Peripheral smear ordered to evaluate for blasts /schistocytes --> abx and other meds have been reviewed --> ok for ppx if plt >50k w/ either heparin or lovenox --> Transfuse if Plt < 20k and fever, or if Plt < 10k without fever --> okay for permacath change once plt better--> for 08/14 --> plt trend: 43-->83-->237k-->292-->341-->315-->388 -->444-->530-->252k # Anemia of chronic disease due to underlying chronic medical issues, multifactorial v Gi bleed --> Anemia workup has been ordered, rule out gi bleed --> No evidence of hemolysis is noted, peripheral smear has been reviewed. --> Hgb goal >7. Transfuse prn. --> Epogen has been started --> HOLD OFF IRON ferritin is >1000 --> Medications have been reviewed --> low threshold for gi evaluation in case has occult + --> hgb 9-->6.7-->9.2 -->10.5-->10.6 -->10.7-->10-->10.5-->9.8-->10.4-->9.5--> 3.6-->9.6-->9.7-->10 --> blood tx: 08/11, 08/31 --> CT Chest pendig r/o hemothorax --> does show Confirmation of a large left hemothorax. Complete atelectasis of the left lower lobe and partial left upper lobe atelectasis demonstrated. Mild rightward shift of the heart and mediastinum. # Sepsis with shock. --> abx as per id, recs noted --> pressors as needed # Healthcare-associated pneumonia. --> recs reviewed --> abx: jung/micafungin-->jung --> 08/24 chest: moderate left pleural effusion # Severe protein-calorie malnutrition. --> nutritional support # End-stage renal disease --> had as renal hd --> with permacath # History of hypertension. --> per cards, now with Bradycardia. # Resp failure s/p vent/trach # HypoThyroid # Ngt feedings # Dvt ppx scd's The timing of this note does not necessarily reflect the time of the patient was seen. Greatly appreciate consultation. Subjective HEENT: Denies: no symptoms, eye pain, blurred vision, tearing, double vision, ear pain, ear discharge, nose pain, nose congestion, throat pain, throat swelling, mouth pain, mouth swelling, other Cardiovascular: Denies: no symptoms, chest pain, edema, irregular heart rate, lightheadedness, palpitations, syncope, other Respiratory: Denies: no symptoms, cough, shortness of breath, SOB with excertion, SOB at rest, sputum, wheezing, other Gastrointestinal/Abdominal: Denies: no symptoms, abdomen distended, abdominal pain, black stools, tarry stools, blood in stool, constipated, diarrhea, difficulty swallowing, nausea, poor appetite, poor fluid intake, rectal bleeding , vomiting, other Genitourinary: Denies: no symptoms, burning, discharge, frequency, flank pain, hematuria, incontinence, pain, urgency, other Neurologic/Psychiatric: Denies: no symptoms, anxiety, depressed, emotional problems, headache, numbness, paresthesia, pre-existing deficit, seizure, tingling, tremors, weakness, other Allergies: Coded Allergies: VANCOMYCIN (Unverified Allergy, Unknown, 08/02/19) Subjective 08/11: no bleeding or chills, labs reviewed, no major bleeding, plt less than 50k 08/12: icu, s/p blood, hgb improved to 9.2, 08/14: icu, pending consent for thora and permacath, labs reviewed 08/15: new permacath placed, no bleeding, for hd, plt much improved, started lovenox sq 08/16: ett to be adjusted, bp on high end, micafungin started, possible bronch 08/17: weaning as per pulm, no events otherwise, labs noted 08/18: no events no bleeding, remains confused on vent, for hd 08/20: icu, failed to wean, labs reviewed, jung 08/21: resting in bed, no overnight events, labs reviewed 08/22: awake, confused, restraints, no overnight events 08/23: no events, no bleeding, on ppi bid 08/24: icu, failed to wean, labs reviewed 08/25: no overnight events, us chest, restraints, afebrile 08/26 difficult in weaning, nad, seen by surg, pulm labs noted 08/27 awake on restraints, thoracentesis for am, labs reviewed 08/29 no bleeding, no night sweats, no major changes, on ppi bid 08/30 no major events, remains on vent, no bleeding, dw pcp 08/31 hgb dropped to 3.6, has been transfused with prbc, in icu, dw Rn, ct chest pend 09/01 no major events, no bleeding, labs noted, hgb remains low, hgb 9.6 09/03 lethargic, left chest tube dry/intact, off abx, vent 09/04 remains on a vent, synthroid, labs reviewed 09/05 awake and alert, no acute events, hgb 9.8, no new orders 09/06 no bleeding or chills, labs noted, no major events overnight, david rn 09/07 no events, no night sweats, no bleeding, no fc, remains agitated in the am 09/08 remains in the icu, trach was done, on vent, abx off, on epo Objective Objective Current Medications Medications (Trade) Dose Ordered Sig/Javier Route PRN Reason Start Time Stop Time Status Last Admin Dose Admin Acetaminophen (Tylenol) 650 mg Q4H PRN GT Mild Pain/Temp > 100.5 09/03/19 07:00 10/03/19 06:59 09/09/19 06:13 Acetylcysteine (Mucomyst) 100 mg Q4HRT N 08/31/19 19:00 11/29/19 18:59 09/09/19 06:45 Albuterol/ Ipratropium (Albuterol/ Ipratropium) 3 ml Q4HRT N 09/05/19 23:00 09/10/19 22:59 09/09/19 06:44 Amlodipine Besylate (Norvasc) 5 mg BID NG 08/23/19 01:45 09/22/19 01:44 09/08/19 18:02 Atropine Sulfate (Atropine) 1 mg Q4H PRN IVP Per rx protocol 08/13/19 08:30 09/12/19 08:29 Chlorhexidine Gluconate (Nae-Hex 2%) 1 applic DAILY@1999 TOPIC 08/15/19 20:00 09/14/19 19:59 09/08/19 19:56 Dextrose (Dextrose 50%) 25 ml Q30M PRN IV Hypoglycemia 09/02/19 06:15 12/01/19 06:14 09/04/19 12:11 Dextrose (Dextrose 50%) 50 ml Q30M PRN IV Hypoglycemia 09/02/19 06:15 12/01/19 06:14 Epoetin Thomas (Epoetin Thomas(ESRD on dialysis)) 4,000 unit SUBQ 08/12/19 21:00 09/11/19 20:59 09/07/19 21:10 Hydralazine HCl (Apresoline) 10 mg Q4H PRN IV For High Blood Pressure 08/18/19 12:44 09/17/19 12:43 09/01/19 20:27 Hydralazine HCl (Apresoline) 25 mg Q6HR NG 08/23/19 06:00 09/22/19 05:59 09/09/19 06:11 Hydromorphone HCl (Dilaudid) 0.5 mg Q4H PRN IVP Pain Scale (6-10) 09/03/19 07:00 09/10/19 06:59 09/08/19 01:41 Lansoprazole (Prevacid) 30 mg BID GT 08/19/19 09:00 09/18/19 08:59 09/08/19 18:02 Levothyroxine Sodium (Synthroid) 50 mcg DAILY@0630 ORAL 08/25/19 06:30 09/24/19 06:29 09/09/19 06:11 Midazolam HCl 100 ml @ 0 mls/hr Q24H PRN IV Agitation 09/05/19 18:15 09/12/19 18:14 Last 24 Hour Vital Signs Date Time Temp Pulse Resp B/P (MAP) Pulse Ox O2 Delivery O2 Flow Rate FiO2 09/09/19 06:11 156/98 09/09/19 06:00 99 24 156/98 (117) 100 09/09/19 05:15 91 18 40 09/09/19 05:00 92 24 153/92 (112) 100 09/09/19 04:00 98.7 90 24 143/88 (106) 100 09/09/19 04:00 40 09/09/19 04:00 88 09/09/19 04:00 Mechanical Ventilator Mechanical Ventilator Mechanical Ventilator Mechanical Ventilator 09/09/19 03:25 89 18 100 Mechanical Ventilator 40 91 18 40 09/09/19 03:00 88 24 130/80 (97) 100 09/09/19 02:00 89 24 118/76 (90) 100 09/09/19 01:00 99 24 109/52 (71) 100 09/09/19 00:45 100 18 40 09/09/19 00:00 96 09/09/19 00:00 98.8 108 26 109/52 (71) 98 09/09/19 00:00 109/52 09/09/19 00:00 Mechanical Ventilator Mechanical Ventilator Mechanical Ventilator Mechanical Ventilator 09/09/19 00:00 40 09/08/19 23:31 88 18 100 Mechanical Ventilator 40 92 19 40 09/08/19 23:00 91 24 134/66 (88) 100 09/08/19 22:00 91 24 143/65 (91) 99 09/08/19 21:38 93 18 40 09/08/19 21:00 97 24 155/81 (105) 100 09/08/19 20:00 87 09/08/19 20:00 40 09/08/19 20:00 Mechanical Ventilator Mechanical Ventilator Mechanical Ventilator Mechanical Ventilator 09/08/19 20:00 97.9 94 26 158/83 (108) 99 09/08/19 19:25 86 19 100 Mechanical Ventilator 40 87 18 40 09/08/19 19:00 76 30 144/70 (94) 100 09/08/19 18:43 147/65 09/08/19 18:02 79 142/56 09/08/19 18:00 80 23 142/56 (84) 100 09/08/19 18:00 75 26 142/56 (84) 100 09/08/19 17:15 95 22 40 09/08/19 17:00 101 26 114/76 (89) 99 09/08/19 17:00 40 09/08/19 16:00 40 3/26/20 16:00 97.7 92 34 163/73 (103) 99 09/08/19 16:00 Mechanical Ventilator Mechanical Ventilator Mechanical Ventilator Mechanical Ventilator 09/08/19 16:00 107 09/08/19 15:20 93 19 40 09/08/19 15:00 94 30 133/81 (98) 100 09/08/19 14:03 86 129/70 (89) 100 09/08/19 13:30 40 09/08/19 13:26 82 20 110/58 (75) 99 09/08/19 13:25 82 20 100 09/08/19 12:27 143/73 09/08/19 12:00 Mechanical Ventilator Mechanical Ventilator Mechanical Ventilator Mechanical Ventilator 09/08/19 12:00 97.8 89 24 143/73 (96) 100 09/08/19 12:00 94 09/08/19 12:00 40 09/08/19 11:16 89 20 100 Mechanical Ventilator 40 90 20 40 09/08/19 11:00 91 20 145/92 (109) 99 09/08/19 10:00 90 22 158/71 (100) 98 09/08/19 09:46 98 119/89 09/08/19 09:00 98 22 119/89 (99) 100 09/08/19 08:59 99 19 40 09/08/19 08:00 40 09/08/19 08:00 98.7 96 25 164/97 (119) 100 09/08/19 08:00 96 09/08/19 08:00 Mechanical Ventilator Mechanical Ventilator Mechanical Ventilator Mechanical Ventilator 09/08/19 07:26 85 18 100 Mechanical Ventilator 40 85 18 40 09/08/19 07:00 89 24 113/77 (89) 100 09/08/19 06:27 86 19 09/08/19 06:00 99.2 84 22 147/102 (117) 100 09/08/19 05:22 170/102 09/08/19 05:10 85 18 40 09/08/19 05:00 86 28 170/102 (124) 100 09/08/19 04:00 Mechanical Ventilator Mechanical Ventilator Mechanical Ventilator Mechanical Ventilator 09/08/19 04:00 85 09/08/19 04:00 99.8 84 32 151/88 (109) 100 09/08/19 03:30 96 20 100 Mechanical Ventilator 40 09/08/19 03:15 84 18 Mechanical Ventilator 40 40 09/08/19 03:00 83 19 132/87 (102) 100 09/08/19 02:00 86 19 158/86 (110) 100 09/08/19 01:08 92 18 40 09/08/19 01:00 88 29 134/99 (111) 100 09/08/19 00:01 Mechanical Ventilator Mechanical Ventilator Mechanical Ventilator Mechanical Ventilator 09/08/19 00:00 40 09/08/19 00:00 89 09/08/19 00:00 99.7 89 25 140/77 (98) 100 09/07/19 23:36 142/85 09/07/19 23:30 91 18 100 Mechanical Ventilator 40 09/07/19 23:15 91 18 Mechanical Ventilator 40 40 09/07/19 23:00 90 29 142/85 (104) 83 09/07/19 22:00 85 20 117/62 (80) 100 09/07/19 21:20 90 20 40 09/07/19 21:00 93 29 118/87 (97) 100 09/07/19 20:00 99 09/07/19 20:00 98.0 87 18 133/107 (116) 100 09/07/19 20:00 Mechanical Ventilator Mechanical Ventilator Mechanical Ventilator Mechanical Ventilator 09/07/19 20:00 40 09/07/19 19:42 95 18 100 Mechanical Ventilator 40 09/07/19 19:27 85 18 Mechanical Ventilator 40 40 09/07/19 19:00 81 18 124/74 (91) 100 09/07/19 18:07 96 28 153/75 (101) 100 09/07/19 17:03 99 19 40 09/07/19 17:00 98 19 130/80 (97) 100 09/07/19 16:00 97.9 99 30 120/82 (95) 100 09/07/19 16:00 40 09/07/19 16:00 Mechanical Ventilator Mechanical Ventilator Mechanical Ventilator Mechanical Ventilator 09/07/19 16:00 98 09/07/19 15:03 92 20 100 Mechanical Ventilator 40 92 18 40 09/07/19 15:00 91 24 115/78 (90) 100 09/07/19 14:15 157/74 09/07/19 14:00 91 27 157/74 (101) 100 09/07/19 13:00 92 22 166/86 (112) 100 09/07/19 12:25 80 22 40 09/07/19 12:00 88 09/07/19 12:00 Mechanical Ventilator Mechanical Ventilator Mechanical Ventilator Mechanical Ventilator 09/07/19 12:00 88 27 160/66 (97) 100 09/07/19 12:00 40 09/07/19 11:03 82 21 100 Mechanical Ventilator 40 83 22 40 09/07/19 11:00 81 20 151/79 (103) 100 09/07/19 10:00 82 26 153/94 (113) 100 09/07/19 09:01 80 22 40 09/07/19 09:00 72 23 157/80 (105) 97 09/07/19 08:00 Mechanical Ventilator Mechanical Ventilator Mechanical Ventilator Mechanical Ventilator 09/07/19 08:00 70 09/07/19 08:00 40 09/07/19 08:00 97.6 79 21 155/72 (99) 100 09/07/19 07:27 68 18 100 Mechanical Ventilator 40 70 18 40 09/07/19 07:00 73 23 141/67 (91) 97 Intake and Output 09/08/19 09/09/19 19:02 07:02 Intake Total 345 ml 350 ml Output Total 1075 ml 80 ml Balance -730 ml 270 ml Intake Free Water 100 ml Tube Feeding 245 ml 350 ml Output Urine Total 75 ml 80 ml Hemodialysis UF 1000 ml # Bowel Movements 2 Labs Test 09/08/19 03:33 09/09/19 03:35 White Blood Count 8.3 K/UL (4.8-10.8) 9.2 K/UL (4.8-10.8) Red Blood Count 3.33 M/UL (4.20-5.40) 3.50 M/UL (4.20-5.40) Hemoglobin 10.0 G/DL (12.0-16.0) 10.4 G/DL (12.0-16.0) Hematocrit 29.1 % (37.0-47.0) 31.4 % (37.0-47.0) Mean Corpuscular Volume 87 FL (80-99) 90 FL (80-99) Mean Corpuscular Hemoglobin 29.9 PG (27.0-31.0) 29.6 PG (27.0-31.0) Mean Corpuscular Hemoglobin Concent 34.3 G/DL (32.0-36.0) 33.1 G/DL (32.0-36.0) Red Cell Distribution Width 14.0 % (11.6-14.8) 14.8 % (11.6-14.8) Platelet Count 306 K/UL (150-450) 252 K/UL (150-450) Mean Platelet Volume 4.7 FL (6.5-10.1) 4.4 FL (6.5-10.1) Neutrophils (%) (Auto) 63.7 % (45.0-75.0) 65.1 % (45.0-75.0) Lymphocytes (%) (Auto) 27.5 % (20.0-45.0) 26.6 % (20.0-45.0) Monocytes (%) (Auto) 7.0 % (1.0-10.0) 7.1 % (1.0-10.0) Eosinophils (%) (Auto) 1.2 % (0.0-3.0) 0.7 % (0.0-3.0) Basophils (%) (Auto) 0.7 % (0.0-2.0) 0.5 % (0.0-2.0) Sodium Level 139 MMOL/L (136-145) Potassium Level 3.9 MMOL/L (3.5-5.1) Chloride Level 103 MMOL/L (98-107) Carbon Dioxide Level 28 MMOL/L (21-32) Anion Gap 8 mmol/L (5-15) Blood Urea Nitrogen 53 mg/dL (7-18) Creatinine 3.8 MG/DL (0.55-1.30) Estimat Glomerular Filtration Rate 11.4 mL/min (>60) Glucose Level 94 MG/DL (74-106) Calcium Level 9.7 MG/DL (8.5-10.1) Phosphorus Level 2.7 MG/DL (2.5-4.9) Magnesium Level 2.3 MG/DL (1.8-2.4) Total Bilirubin 0.5 MG/DL (0.2-1.0) Aspartate Amino Transf (AST/SGOT) 26 U/L (15-37) Alanine Aminotransferase (ALT/SGPT) 7 U/L (12-78) Alkaline Phosphatase 116 U/L (46-116) C-Reactive Protein, Quantitative 18.1 mg/dL (0.00-0.90) Pro-B-Type Natriuretic Peptide > 23969 pg/mL (0-125) Total Protein 6.4 G/DL (6.4-8.2) Albumin 2.1 G/DL (3.4-5.0) Globulin 4.3 g/dL Albumin/Globulin Ratio 0.5 (1.0-2.7) Height (Feet): 5 Height (Inches): 4.00 Weight (Pounds): 109 Objective gen: nad pulm: on trach+ / vent, decreased breath sounds left, chest tube+ cv: rrr, no gmr abd: sfot, nt, nd ++ gt ext: no cce Gio Rob MD Sep 09, 2019 06:57
[2019-09-09 07:17] LABS: ALANINE AMINOTRANSFERASE 12 U/L (12-78); ALBUMIN 2.5 G/DL (3.4-5.0); ALBUMIN/GLOBULIN RATIO 0.6 (1.0-2.7); ALKALINE PHOSPHATASE 130 U/L (46-116); ANION GAP 5 mmol/L (5-15); ASPARTATE AMINO TRANSFERASE 28 U/L (15-37); BILIRUBIN,TOTAL 0.6 MG/DL (0.2-1.0); BLOOD UREA NITROGEN 35 mg/dL (7-18); CALCIUM 9.1 MG/DL (8.5-10.1); CARBON DIOXIDE 31 MMOL/L (21-32); CHLORIDE 105 MMOL/L (98-107); CREATININE 2.6 MG/DL (0.55-1.30); PHOSPHORUS 1.6 MG/DL (2.5-4.9); POTASSIUM 3.6 MMOL/L (3.5-5.1); SODIUM 141 MMOL/L (136-145)
[2019-09-09 07:18] LABS: CREATINE KINASE 84 U/L (26-308)
[2019-09-09] MEDS ORDERED: Sodium Phosphate 15 MM in NS 275 ML IVPB ONE (09:00)
--- NOTE | 2019-09-09 09:44 | General Progress Note ---
Assessment/Plan Problem List: (1) Failure to thrive (0-17) ICD Codes: R62.51 - Failure to thrive (0-17) SNOMED: 423945398 (2) Hypertensive kidney disease ICD Codes: I12.9 - Hypertensive chronic kidney disease with stage 1 through stage 4 chronic kidney disease, or unspecified chronic kidney disease SNOMED: 33288302 (3) Pneumonia ICD Codes: J18.9 - Pneumonia, unspecified organism SNOMED: 222515509 Qualifiers: Qualified Codes: J18.9 - Pneumonia, unspecified organism (4) ESRD (end stage renal disease) ICD Codes: N18.6 - End stage renal disease SNOMED: 14621845 (5) Septic arthritis ICD Codes: M00.9 - Pyogenic arthritis, unspecified SNOMED: 053961656 (6) Thrombocytopenia ICD Codes: D69.6 - Thrombocytopenia, unspecified SNOMED: 277604354 (7) Hypotension ICD Codes: I95.9 - Hypotension, unspecified SNOMED: 75684820 Qualifiers: Qualified Codes: I95.3 - Hypotension of hemodialysis (8) Malnutrition ICD Codes: E46 - Unspecified protein-calorie malnutrition SNOMED: 87904141 Status: stable, not improved, unchanged, deteriorating Assessment/Plan: cont resp care resp rx wean vent monitor cbc transfuse as needed iv abx HD bp rx Subjective ROS Limited/Unobtainable: No Constitutional: Reports: malaise, weakness HEENT: Reports: no symptoms Cardiovascular: Reports: no symptoms Respiratory: Reports: cough, shortness of breath Gastrointestinal/Abdominal: Reports: no symptoms Genitourinary: Reports: no symptoms Neurologic/Psychiatric: Reports: pre-existing deficit Endocrine: Reports: no symptoms Hematologic/Lymphatic: Reports: anemia Allergies: Coded Allergies: VANCOMYCIN (Unverified Allergy, Unknown, 08/02/19) All Systems: reviewed and negative except above Subjective s/p trach and ct removal. tolerated well. awake and alert. no distress. d/w staff. no events last night. Objective Last 24 Hour Vital Signs Date Time Temp Pulse Resp B/P (MAP) Pulse Ox O2 Delivery O2 Flow Rate FiO2 09/09/19 09:00 85 21 132/100 (111) 100 09/09/19 08:30 87 154/79 09/09/19 08:00 90 09/09/19 08:00 Mechanical Ventilator Mechanical Ventilator Mechanical Ventilator Mechanical Ventilator 09/09/19 08:00 40 09/09/19 08:00 98.5 87 19 154/79 (104) 100 09/09/19 07:00 89 22 141/75 (97) 100 09/09/19 06:59 96 18 100 Mechanical Ventilator 40 95 18 40 09/09/19 06:11 156/98 09/09/19 06:00 99 24 156/98 (117) 100 09/09/19 05:15 91 18 40 09/09/19 05:00 92 24 153/92 (112) 100 09/09/19 04:00 98.7 90 24 143/88 (106) 100 09/09/19 04:00 40 09/09/19 04:00 88 09/09/19 04:00 Mechanical Ventilator Mechanical Ventilator Mechanical Ventilator Mechanical Ventilator 09/09/19 03:25 89 18 100 Mechanical Ventilator 40 91 18 40 09/09/19 03:00 88 24 130/80 (97) 100 09/09/19 02:00 89 24 118/76 (90) 100 09/09/19 01:00 99 24 109/52 (71) 100 09/09/19 00:45 100 18 40 09/09/19 00:00 96 09/09/19 00:00 98.8 108 26 109/52 (71) 98 09/09/19 00:00 109/52 09/09/19 00:00 Mechanical Ventilator Mechanical Ventilator Mechanical Ventilator Mechanical Ventilator 09/09/19 00:00 40 09/08/19 23:31 88 18 100 Mechanical Ventilator 40 92 19 40 09/08/19 23:00 91 24 134/66 (88) 100 09/08/19 22:00 91 24 143/65 (91) 99 09/08/19 21:38 93 18 40 09/08/19 21:00 97 24 155/81 (105) 100 09/08/19 20:00 87 09/08/19 20:00 40 09/08/19 20:00 Mechanical Ventilator Mechanical Ventilator Mechanical Ventilator Mechanical Ventilator 09/08/19 20:00 97.9 94 26 158/83 (108) 99 09/08/19 19:25 86 19 100 Mechanical Ventilator 40 87 18 40 09/08/19 19:00 76 30 144/70 (94) 100 09/08/19 18:43 147/65 09/08/19 18:02 79 142/56 09/08/19 18:00 80 23 142/56 (84) 100 09/08/19 18:00 75 26 142/56 (84) 100 09/08/19 17:15 95 22 40 09/08/19 17:00 101 26 114/76 (89) 99 09/08/19 17:00 40 09/08/19 16:00 40 09/08/19 16:00 97.7 92 34 163/73 (103) 99 09/08/19 16:00 Mechanical Ventilator Mechanical Ventilator Mechanical Ventilator Mechanical Ventilator 09/08/19 16:00 107 09/08/19 15:20 93 19 40 09/08/19 15:00 94 30 133/81 (98) 100 09/08/19 14:03 86 129/70 (89) 100 09/08/19 13:30 40 09/08/19 13:26 82 20 110/58 (75) 99 09/08/19 13:25 82 20 100 09/08/19 12:27 143/73 09/08/19 12:00 Mechanical Ventilator Mechanical Ventilator Mechanical Ventilator Mechanical Ventilator 09/08/19 12:00 97.8 89 24 143/73 (96) 100 09/08/19 12:00 94 09/08/19 12:00 40 09/08/19 11:16 89 20 100 Mechanical Ventilator 40 90 20 40 09/08/19 11:00 91 20 145/92 (109) 99 09/08/19 10:00 90 22 158/71 (100) 98 09/08/19 09:46 98 119/89 Intake and Output 09/08/19 09/09/19 19:00 07:00 Intake Total 345 ml 350 ml Output Total 1075 ml 120 ml Balance -730 ml 230 ml Intake Free Water 100 ml Tube Feeding 245 ml 350 ml Output Urine Total 75 ml 120 ml Hemodialysis UF 1000 ml # Bowel Movements 2 Laboratory Tests 09/09/19 03:35: White Blood Count 9.2, Red Blood Count 3.50L, Hemoglobin 10.4L, Hematocrit 31.4L , Mean Corpuscular Volume 90, Mean Corpuscular Hemoglobin 29.6, Mean Corpuscular Hemoglobin Concent 33.1, Red Cell Distribution Width 14.8, Platelet Count 252, Mean Platelet Volume 4.4L, Neutrophils (%) (Auto) 65.1, Lymphocytes ( %) (Auto) 26.6, Monocytes (%) (Auto) 7.1, Eosinophils (%) (Auto) 0.7, Basophils (%) (Auto) 0.5, Sodium Level 141, Potassium Level 3.6, Chloride Level 105, Carbon Dioxide Level 31, Anion Gap 5, Blood Urea Nitrogen 35H, Creatinine 2.6H, Estimat Glomerular Filtration Rate 17.7, Glucose Level 103, Uric Acid 3.4, Calcium Level 9.1, Phosphorus Level 1.6L, Magnesium Level 2.1, Total Bilirubin 0.6, Aspartate Amino Transf (AST/SGOT) 28, Alanine Aminotransferase (ALT/SGPT) 12, Alkaline Phosphatase 130H, Total Creatine Kinase 84, C-Reactive Protein, Quantitative 18.8H, Pro-B-Type Natriuretic Peptide > 51715L, Total Protein 6.6, Albumin 2.5L, Globulin 4.1, Albumin/Globulin Ratio 0.6L Height (Feet): 5 Height (Inches): 4.00 Weight (Pounds): 110 Objective General Appearance: WD/WN, awake/moaning. orally intubated Neck: supple Cardiovascular: normal rate Respiratory/Chest: rhonchi - bilaterally Abdomen: normal bowel sounds, non tender, soft, no organomegaly Edema: no edema noted Arm (L), no edema noted Arm (R), no edema noted Leg (L), no edema noted Leg (R), no edema noted Pedal (L), no edema noted Pedal (R), no edema noted Generalized Neurologic: disoriented, aphasia Nate Beltran MD Sep 09, 2019 09:44
--- NOTE | 2019-09-09 10:05 | Infectious Diseases Prog Note ---
Assessment/Plan Assessment/Plan A; 1. Hailee sepsis treated 2. Klebsiella sepsis , treated 3. Right shoulder septic arthritis, status post surgery. 4. Diabetes. 5. Hypertension. 6. Anemia 7. Thrombocytopenia improving 9. Atelectasis , left lung collapse 10. Pleural effusion, hemothorax 11. Ulcerative esophagitis PLAN: 1. Observe off antibiotic Subjective ROS Limited/Unobtainable: Yes Respiratory: Reports: other - had tracheostomy yesterday Allergies: Coded Allergies: VANCOMYCIN (Unverified Allergy, Unknown, 08/02/19) Objective Vital Signs Last 24 Hour Vital Signs Date Time Temp Pulse Resp B/P (MAP) Pulse Ox O2 Delivery O2 Flow Rate FiO2 09/09/19 09:00 82 18 40 09/09/19 09:00 85 21 132/100 (111) 100 09/09/19 08:30 87 154/79 09/09/19 08:00 90 09/09/19 08:00 Mechanical Ventilator Mechanical Ventilator Mechanical Ventilator Mechanical Ventilator 09/09/19 08:00 40 09/09/19 08:00 98.5 87 19 154/79 (104) 100 09/09/19 07:00 89 22 141/75 (97) 100 09/09/19 06:59 96 18 100 Mechanical Ventilator 40 95 18 40 09/09/19 06:11 156/98 09/09/19 06:00 99 24 156/98 (117) 100 09/09/19 05:15 91 18 40 09/09/19 05:00 92 24 153/92 (112) 100 09/09/19 04:00 98.7 90 24 143/88 (106) 100 09/09/19 04:00 40 09/09/19 04:00 88 09/09/19 04:00 Mechanical Ventilator Mechanical Ventilator Mechanical Ventilator Mechanical Ventilator 09/09/19 03:25 89 18 100 Mechanical Ventilator 40 91 18 40 09/09/19 03:00 88 24 130/80 (97) 100 09/09/19 02:00 89 24 118/76 (90) 100 09/09/19 01:00 99 24 109/52 (71) 100 09/09/19 00:45 100 18 40 09/09/19 00:00 96 09/09/19 00:00 98.8 108 26 109/52 (71) 98 09/09/19 00:00 109/52 09/09/19 00:00 Mechanical Ventilator Mechanical Ventilator Mechanical Ventilator Mechanical Ventilator 09/09/19 00:00 40 09/08/19 23:31 88 18 100 Mechanical Ventilator 40 92 19 40 09/08/19 23:00 91 24 134/66 (88) 100 09/08/19 22:00 91 24 143/65 (91) 99 09/08/19 21:38 93 18 40 09/08/19 21:00 97 24 155/81 (105) 100 09/08/19 20:00 87 09/08/19 20:00 40 09/08/19 20:00 Mechanical Ventilator Mechanical Ventilator Mechanical Ventilator Mechanical Ventilator 09/08/19 20:00 97.9 94 26 158/83 (108) 99 09/08/19 19:25 86 19 100 Mechanical Ventilator 40 87 18 40 09/08/19 19:00 76 30 144/70 (94) 100 09/08/19 18:43 147/65 09/08/19 18:02 79 142/56 09/08/19 18:00 80 23 142/56 (84) 100 09/08/19 18:00 75 26 142/56 (84) 100 09/08/19 17:15 95 22 40 09/08/19 17:00 101 26 114/76 (89) 99 09/08/19 17:00 40 09/08/19 16:00 40 09/08/19 16:00 97.7 92 34 163/73 (103) 99 09/08/19 16:00 Mechanical Ventilator Mechanical Ventilator Mechanical Ventilator Mechanical Ventilator 09/08/19 16:00 107 09/08/19 15:20 93 19 40 09/08/19 15:00 94 30 133/81 (98) 100 09/08/19 14:03 86 129/70 (89) 100 09/08/19 13:30 40 09/08/19 13:26 82 20 110/58 (75) 99 09/08/19 13:25 82 20 100 09/08/19 12:27 143/73 09/08/19 12:00 Mechanical Ventilator Mechanical Ventilator Mechanical Ventilator Mechanical Ventilator 09/08/19 12:00 97.8 89 24 143/73 (96) 100 09/08/19 12:00 94 09/08/19 12:00 40 09/08/19 11:16 89 20 100 Mechanical Ventilator 40 90 20 40 09/08/19 11:00 91 20 145/92 (109) 99 Height (Feet): 5 Height (Inches): 4.00 Weight (Pounds): 110 General Appearance: cachetic HEENT: status post trach Respiratory/Chest: other - coarse sounds on ventilator Cardiovascular: normal rate Abdomen: soft, non tender, other - GT feeding Extremities: other - R arm edema Neurologic/Psychiatric: disoriented Laboratory Tests Test 09/09/19 03:35 White Blood Count 9.2 K/UL (4.8-10.8) Red Blood Count 3.50 M/UL (4.20-5.40) L Hemoglobin 10.4 G/DL (12.0-16.0) L Hematocrit 31.4 % (37.0-47.0) L Mean Corpuscular Volume 90 FL (80-99) Mean Corpuscular Hemoglobin 29.6 PG (27.0-31.0) Mean Corpuscular Hemoglobin Concent 33.1 G/DL (32.0-36.0) Red Cell Distribution Width 14.8 % (11.6-14.8) Platelet Count 252 K/UL (150-450) Mean Platelet Volume 4.4 FL (6.5-10.1) L Neutrophils (%) (Auto) 65.1 % (45.0-75.0) Lymphocytes (%) (Auto) 26.6 % (20.0-45.0) Monocytes (%) (Auto) 7.1 % (1.0-10.0) Eosinophils (%) (Auto) 0.7 % (0.0-3.0) Basophils (%) (Auto) 0.5 % (0.0-2.0) Sodium Level 141 MMOL/L (136-145) Potassium Level 3.6 MMOL/L (3.5-5.1) Chloride Level 105 MMOL/L (98-107) Carbon Dioxide Level 31 MMOL/L (21-32) Anion Gap 5 mmol/L (5-15) Blood Urea Nitrogen 35 mg/dL (7-18) H Creatinine 2.6 MG/DL (0.55-1.30) H Estimat Glomerular Filtration Rate 17.7 mL/min (>60) Glucose Level 103 MG/DL (74-106) Uric Acid 3.4 MG/DL (2.6-7.2) Calcium Level 9.1 MG/DL (8.5-10.1) Phosphorus Level 1.6 MG/DL (2.5-4.9) L Magnesium Level 2.1 MG/DL (1.8-2.4) Total Bilirubin 0.6 MG/DL (0.2-1.0) Aspartate Amino Transf (AST/SGOT) 28 U/L (15-37) Alanine Aminotransferase (ALT/SGPT) 12 U/L (12-78) Alkaline Phosphatase 130 U/L (46-116) H Total Creatine Kinase 84 U/L (26-308) C-Reactive Protein, Quantitative 18.8 mg/dL (0.00-0.90) H Pro-B-Type Natriuretic Peptide > 42514 pg/mL (0-125) H Total Protein 6.6 G/DL (6.4-8.2) Albumin 2.5 G/DL (3.4-5.0) L Globulin 4.1 g/dL Albumin/Globulin Ratio 0.6 (1.0-2.7) L Current Medications Medications (Trade) Dose Ordered Sig/Javier Route PRN Reason Start Time Stop Time Status Last Admin Dose Admin Acetaminophen (Tylenol) 650 mg Q4H PRN GT Mild Pain/Temp > 100.5 09/03/19 07:00 10/03/19 06:59 09/09/19 06:13 Acetylcysteine (Mucomyst) 100 mg Q4HRT [facility] 08/31/19 19:00 11/29/19 18:59 09/09/19 06:45 Albuterol/ Ipratropium (Albuterol/ Ipratropium) 3 ml Q4HRT [facility] 09/05/19 23:00 09/10/19 22:59 09/09/19 06:44 Amlodipine Besylate (Norvasc) 5 mg BID NG 08/23/19 01:45 09/22/19 01:44 09/09/19 08:30 Atropine Sulfate (Atropine) 1 mg Q4H PRN IVP Per rx protocol 08/13/19 08:30 09/12/19 08:29 Chlorhexidine Gluconate (Nae-Hex 2%) 1 applic DAILY@2000 TOPIC 08/15/19 20:00 09/14/19 19:59 09/08/19 19:56 Dextrose (Dextrose 50%) 25 ml Q30M PRN IV Hypoglycemia 09/02/19 06:15 12/01/19 06:14 09/04/19 12:11 Dextrose (Dextrose 50%) 50 ml Q30M PRN IV Hypoglycemia 09/02/19 06:15 12/01/19 06:14 Epoetin Thomas (Epoetin Thomas(ESRD on dialysis)) 4,000 unit SUBQ 08/12/19 21:00 09/11/19 20:59 09/07/19 21:10 Hydralazine HCl (Apresoline) 10 mg Q4H PRN IV For High Blood Pressure 08/18/19 12:44 09/17/19 12:43 09/01/19 20:27 Hydralazine HCl (Apresoline) 25 mg Q6HR NG 08/23/19 06:00 09/22/19 05:59 09/09/19 06:11 Hydromorphone HCl (Dilaudid) 0.5 mg Q4H PRN IVP Pain Scale (6-10) 09/03/19 07:00 09/10/19 06:59 09/08/19 01:41 Lansoprazole (Prevacid) 30 mg BID GT 08/19/19 09:00 09/18/19 08:59 09/09/19 08:30 Levothyroxine Sodium (Synthroid) 50 mcg DAILY@0630 ORAL 08/25/19 06:30 09/24/19 06:29 09/09/19 06:11 Midazolam HCl 100 ml @ 0 mls/hr Q24H PRN IV Agitation 09/05/19 18:15 09/12/19 18:14 Sodium Phosphate 15 mm/Sodium Chloride 280 ml @ 70.273 mls/ hr ONCE ONCE IVPB 09/09/19 09:00 09/09/19 12:59 09/09/19 09:53 Warren Parks MD Sep 09, 2019 10:05
--- NOTE | 2019-09-09 12:13 | Nephrology Progress Note ---
Assessment/Plan Problem List: (1) ESRD (end stage renal disease) on dialysis (2) Malnutrition (3) Anemia in CKD (chronic kidney disease) (4) Hypotension (5) Thrombocytopenia (6) Sepsis Assessment: klebsiella in blood Assessment -Early sepsis with shock. -Healthcare-associated pneumonia. -Severe protein-calorie malnutrition. -Thrombocytopenia. - End-stage renal disease. - History of hypertension. - Bradycardia. - HypoThyroid Plan Tracheostomy September 07 Last dialysis September 07 chest tube on the left side was put in on September 01 was discontinued September 07 Patient transfused 3 units of packed RBCs for low hemoglobin Remains full code Blood pressure fluctuating, will start hydralazine via NG tube for blood pressure Magnesium and potassium supplement intravenously as needed Patient underwent PEG placement August 16 patient remains intubated on ventilator Discussed with RN Aim to wean from ventilator or consider tracheostomy Permacath was removed on August 12 Dialysis 08/11 Transfusion as needed Patient had hematemesis meds IV as possible Surveillance blood cultures tomorrow Plan to put the permacath back in on Thursday if cultures are negative keep BP and BS in check Inflammatory markers per orders Subjective ROS Limited/Unobtainable: Yes Objective Objective Last 24 Hour Vital Signs Date Time Temp Pulse Resp B/P (MAP) Pulse Ox O2 Delivery O2 Flow Rate FiO2 09/09/19 12:00 Mechanical Ventilator Mechanical Ventilator Mechanical Ventilator Mechanical Ventilator 09/09/19 12:00 40 09/09/19 12:00 98.5 83 19 137/67 (90) 100 09/09/19 11:40 143/116 09/09/19 11:00 85 18 143/116 (125) 100 09/09/19 10:31 84 18 99 Mechanical Ventilator 40 85 18 40 09/09/19 10:00 80 11 127/61 (83) 100 09/09/19 09:00 82 18 40 09/09/19 09:00 85 21 132/100 (111) 100 09/09/19 08:30 87 154/79 09/09/19 08:00 90 09/09/19 08:00 Mechanical Ventilator Mechanical Ventilator Mechanical Ventilator Mechanical Ventilator 09/09/19 08:00 40 09/09/19 08:00 98.5 87 19 154/79 (104) 100 09/09/19 07:00 89 22 141/75 (97) 100 09/09/19 06:59 96 18 100 Mechanical Ventilator 40 95 18 40 09/09/19 06:11 156/98 09/09/19 06:00 99 24 156/98 (117) 100 09/09/19 05:15 91 18 40 09/09/19 05:00 92 24 153/92 (112) 100 09/09/19 04:00 98.7 90 24 143/88 (106) 100 09/09/19 04:00 40 09/09/19 04:00 88 09/09/19 04:00 Mechanical Ventilator Mechanical Ventilator Mechanical Ventilator Mechanical Ventilator 09/09/19 03:25 89 18 100 Mechanical Ventilator 40 91 18 40 09/09/19 03:00 88 24 130/80 (97) 100 09/09/19 02:00 89 24 118/76 (90) 100 09/09/19 01:00 99 24 109/52 (71) 100 09/09/19 00:45 100 18 40 09/09/19 00:00 96 09/09/19 00:00 98.8 108 26 109/52 (71) 98 09/09/19 00:00 109/52 09/09/19 00:00 Mechanical Ventilator Mechanical Ventilator Mechanical Ventilator Mechanical Ventilator 09/09/19 00:00 40 09/08/19 23:31 88 18 100 Mechanical Ventilator 40 92 19 40 09/08/19 23:00 91 24 134/66 (88) 100 09/08/19 22:00 91 24 143/65 (91) 99 09/08/19 21:38 93 18 40 09/08/19 21:00 97 24 155/81 (105) 100 09/08/19 20:00 87 09/08/19 20:00 40 09/08/19 20:00 Mechanical Ventilator Mechanical Ventilator Mechanical Ventilator Mechanical Ventilator 09/08/19 20:00 97.9 94 26 158/83 (108) 99 09/08/19 19:25 86 19 100 Mechanical Ventilator 40 87 18 40 09/08/19 19:00 76 30 144/70 (94) 100 09/08/19 18:43 147/65 09/08/19 18:02 79 142/56 09/08/19 18:00 80 23 142/56 (84) 100 09/08/19 18:00 75 26 142/56 (84) 100 09/08/19 17:15 95 22 40 09/08/19 17:00 101 26 114/76 (89) 99 09/08/19 17:00 40 09/08/19 16:00 40 09/08/19 16:00 97.7 92 34 163/73 (103) 99 09/08/19 16:00 Mechanical Ventilator Mechanical Ventilator Mechanical Ventilator Mechanical Ventilator 09/08/19 16:00 107 09/08/19 15:20 93 19 40 09/08/19 15:00 94 30 133/81 (98) 100 09/08/19 14:03 86 129/70 (89) 100 09/08/19 13:30 40 09/08/19 13:26 82 20 110/58 (75) 99 09/08/19 13:25 82 20 100 09/08/19 12:27 143/73 Intake and Output 09/08/19 09/09/19 19:00 07:00 Intake Total 345 ml 350 ml Output Total 1075 ml 120 ml Balance -730 ml 230 ml Intake Free Water 100 ml Tube Feeding 245 ml 350 ml Output Urine Total 75 ml 120 ml Hemodialysis UF 1000 ml # Bowel Movements 2 Laboratory Tests 09/09/19 03:35: White Blood Count 9.2, Red Blood Count 3.50L, Hemoglobin 10.4L, Hematocrit 31.4L , Mean Corpuscular Volume 90, Mean Corpuscular Hemoglobin 29.6, Mean Corpuscular Hemoglobin Concent 33.1, Red Cell Distribution Width 14.8, Platelet Count 252, Mean Platelet Volume 4.4L, Neutrophils (%) (Auto) 65.1, Lymphocytes ( %) (Auto) 26.6, Monocytes (%) (Auto) 7.1, Eosinophils (%) (Auto) 0.7, Basophils (%) (Auto) 0.5, Sodium Level 141, Potassium Level 3.6, Chloride Level 105, Carbon Dioxide Level 31, Anion Gap 5, Blood Urea Nitrogen 35H, Creatinine 2.6H, Estimat Glomerular Filtration Rate 17.7, Glucose Level 103, Uric Acid 3.4, Calcium Level 9.1, Phosphorus Level 1.6L, Magnesium Level 2.1, Total Bilirubin 0.6, Aspartate Amino Transf (AST/SGOT) 28, Alanine Aminotransferase (ALT/SGPT) 12, Alkaline Phosphatase 130H, Total Creatine Kinase 84, C-Reactive Protein, Quantitative 18.8H, Pro-B-Type Natriuretic Peptide > 43422S, Total Protein 6.6, Albumin 2.5L, Globulin 4.1, Albumin/Globulin Ratio 0.6L Height (Feet): 5 Height (Inches): 4.00 Weight (Pounds): 110 General Appearance: no apparent distress EENT: other - Is is vented through tracheostomy now Respiratory/Chest: decreased breath sounds, other - Chest tube discontinued yesterday Abdomen: soft Objective no change William Blackwood MD Sep 09, 2019 12:13
--- NOTE | 2019-09-09 12:37 | Critical Care Progress Note ---
Assessment/Plan Assessment/Plan respiratory failure hemoptysis resolved hypoxemia chronic renal failure toxic met encephalopathy severe protein calorie malnutrition cachexia left lung whiteout/collapse, improved with intubation s/p intubation anemia ? blood loss pulmonary edema with elevated BNP + pleural effusion ? hemothorax s/p CT placement and removal s/p trach PLAN trach care monitor for bleeding monitor effusion care noted and reviewed monitor ins and outs reviewed care unable to wean off vent prognosis poor overall keep negative and monitor osmotic pressures ID and other specialist reviewed close follow up discussed elevated head and monitor ROM watch fluid status and keep negative nutrition and monitor residuals isolation as needed off load as able and monitor skin exam ROM as able ICU care and management critical at present requires ICU management and close follow up care feeds as able and monitor residuals medications/laboratory data/nursing notes/ICU care reviewed in detail note reviewed and edited care discussed with RN and RT ICU time spent >40 minutes coordinating care Critical Care - Subjective Interval Events: s/p trach s/p CT removal overall stable ROS Limited/Unobtainable: Yes Condition: critical EKG Rhythm: Sinus Rhythm Residuals: minimal Tube Feeding Tolerated: yes I&O: Intake and Output 09/08/19 09/09/19 18:59 06:59 Intake Total 310 ml 385 ml Output Total 1050 ml 110 ml Balance -740 ml 275 ml Intake Free Water 100 ml Tube Feeding 210 ml 385 ml Output Urine Total 50 ml 110 ml Hemodialysis UF 1000 ml # Bowel Movements 2 Critical Care - Objective ET-Tube: 7.0 ET Position: 19 Last 24 Hour Vital Signs Date Time Temp Pulse Resp B/P (MAP) Pulse Ox O2 Delivery O2 Flow Rate FiO2 09/09/19 12:00 85 09/09/19 12:00 Mechanical Ventilator Mechanical Ventilator Mechanical Ventilator Mechanical Ventilator 09/09/19 12:00 40 09/09/19 12:00 98.5 83 19 137/67 (90) 100 09/09/19 11:40 143/116 09/09/19 11:00 85 18 143/116 (125) 100 09/09/19 10:31 84 18 99 Mechanical Ventilator 40 85 18 40 09/09/19 10:00 80 11 127/61 (83) 100 09/09/19 09:00 82 18 40 09/09/19 09:00 85 21 132/100 (111) 100 09/09/19 08:30 87 154/79 09/09/19 08:00 90 09/09/19 08:00 Mechanical Ventilator Mechanical Ventilator Mechanical Ventilator Mechanical Ventilator 09/09/19 08:00 40 09/09/19 08:00 98.5 87 19 154/79 (104) 100 09/09/19 07:00 89 22 141/75 (97) 100 09/09/19 06:59 96 18 100 Mechanical Ventilator 40 95 18 40 09/09/19 06:11 156/98 09/09/19 06:00 99 24 156/98 (117) 100 09/09/19 05:15 91 18 40 09/09/19 05:00 92 24 153/92 (112) 100 09/09/19 04:00 98.7 90 24 143/88 (106) 100 09/09/19 04:00 40 09/09/19 04:00 88 09/09/19 04:00 Mechanical Ventilator Mechanical Ventilator Mechanical Ventilator Mechanical Ventilator 09/09/19 03:25 89 18 100 Mechanical Ventilator 40 91 18 40 09/09/19 03:00 88 24 130/80 (97) 100 09/09/19 02:00 89 24 118/76 (90) 100 09/09/19 01:00 99 24 109/52 (71) 100 09/09/19 00:45 100 18 40 09/09/19 00:00 96 09/09/19 00:00 98.8 108 26 109/52 (71) 98 09/09/19 00:00 109/52 09/09/19 00:00 Mechanical Ventilator Mechanical Ventilator Mechanical Ventilator Mechanical Ventilator 09/09/19 00:00 40 09/08/19 23:31 88 18 100 Mechanical Ventilator 40 92 19 40 09/08/19 23:00 91 24 134/66 (88) 100 09/08/19 22:00 91 24 143/65 (91) 99 09/08/19 21:38 93 18 40 09/08/19 21:00 97 24 155/81 (105) 100 09/08/19 20:00 87 09/08/19 20:00 40 09/08/19 20:00 Mechanical Ventilator Mechanical Ventilator Mechanical Ventilator Mechanical Ventilator 09/08/19 20:00 97.9 94 26 158/83 (108) 99 09/08/19 19:25 86 19 100 Mechanical Ventilator 40 87 18 40 09/08/19 19:00 76 30 144/70 (94) 100 09/08/19 18:43 147/65 09/08/19 18:02 79 142/56 09/08/19 18:00 80 23 142/56 (84) 100 09/08/19 18:00 75 26 142/56 (84) 100 09/08/19 17:15 95 22 40 09/08/19 17:00 101 26 114/76 (89) 99 09/08/19 17:00 40 09/08/19 16:00 40 09/08/19 16:00 97.7 92 34 163/73 (103) 99 09/08/19 16:00 Mechanical Ventilator Mechanical Ventilator Mechanical Ventilator Mechanical Ventilator 09/08/19 16:00 107 09/08/19 15:20 93 19 40 09/08/19 15:00 94 30 133/81 (98) 100 09/08/19 14:03 86 129/70 (89) 100 09/08/19 13:30 40 09/08/19 13:26 82 20 110/58 (75) 99 09/08/19 13:25 82 20 100 Labs: Laboratory Tests Test 09/09/19 03:35 White Blood Count 9.2 K/UL (4.8-10.8) Red Blood Count 3.50 M/UL (4.20-5.40) L Hemoglobin 10.4 G/DL (12.0-16.0) L Hematocrit 31.4 % (37.0-47.0) L Mean Corpuscular Volume 90 FL (80-99) Mean Corpuscular Hemoglobin 29.6 PG (27.0-31.0) Mean Corpuscular Hemoglobin Concent 33.1 G/DL (32.0-36.0) Red Cell Distribution Width 14.8 % (11.6-14.8) Platelet Count 252 K/UL (150-450) Mean Platelet Volume 4.4 FL (6.5-10.1) L Neutrophils (%) (Auto) 65.1 % (45.0-75.0) Lymphocytes (%) (Auto) 26.6 % (20.0-45.0) Monocytes (%) (Auto) 7.1 % (1.0-10.0) Eosinophils (%) (Auto) 0.7 % (0.0-3.0) Basophils (%) (Auto) 0.5 % (0.0-2.0) Sodium Level 141 MMOL/L (136-145) Potassium Level 3.6 MMOL/L (3.5-5.1) Chloride Level 105 MMOL/L (98-107) Carbon Dioxide Level 31 MMOL/L (21-32) Anion Gap 5 mmol/L (5-15) Blood Urea Nitrogen 35 mg/dL (7-18) H Creatinine 2.6 MG/DL (0.55-1.30) H Estimat Glomerular Filtration Rate 17.7 mL/min (>60) Glucose Level 103 MG/DL (74-106) Uric Acid 3.4 MG/DL (2.6-7.2) Calcium Level 9.1 MG/DL (8.5-10.1) Phosphorus Level 1.6 MG/DL (2.5-4.9) L Magnesium Level 2.1 MG/DL (1.8-2.4) Total Bilirubin 0.6 MG/DL (0.2-1.0) Aspartate Amino Transf (AST/SGOT) 28 U/L (15-37) Alanine Aminotransferase (ALT/SGPT) 12 U/L (12-78) Alkaline Phosphatase 130 U/L (46-116) H Total Creatine Kinase 84 U/L (26-308) C-Reactive Protein, Quantitative 18.8 mg/dL (0.00-0.90) H Pro-B-Type Natriuretic Peptide > 94437 pg/mL (0-125) H Total Protein 6.6 G/DL (6.4-8.2) Albumin 2.5 G/DL (3.4-5.0) L Globulin 4.1 g/dL Albumin/Globulin Ratio 0.6 (1.0-2.7) L Objective: WDWN NAD intubated now with trach reduced breath sounds scattered rhonchi; CT removed [id number] without MRG NABS nontender no HSM no CCE contractures feeding tube in place no distention reduced LOC and weak nonfocal cachectic reviewed and edited Accucheck: 133 Malcolm Cruz MD Sep 09, 2019 12:37
--- NOTE | 2019-09-09 13:08 | Surgery Progress Note ---
Surgery Progress Note Subjective Procedure Performed 1. tracheostomy 2 removal of left tube thoracostomy Additional Comments more comfortable with trach cxr noted downgrade Objective Last 24 Hour Vital Signs Date Time Temp Pulse Resp B/P (MAP) Pulse Ox O2 Delivery O2 Flow Rate FiO2 09/09/19 12:30 82 18 40 09/09/19 12:00 85 09/09/19 12:00 Mechanical Ventilator Mechanical Ventilator Mechanical Ventilator Mechanical Ventilator 09/09/19 12:00 40 09/09/19 12:00 98.5 83 19 137/67 (90) 100 09/09/19 11:40 143/116 09/09/19 11:00 85 18 143/116 (125) 100 09/09/19 10:31 84 18 99 Mechanical Ventilator 40 85 18 40 09/09/19 10:00 80 11 127/61 (83) 100 09/09/19 09:00 82 18 40 09/09/19 09:00 85 21 132/100 (111) 100 09/09/19 08:30 87 154/79 09/09/19 08:00 90 09/09/19 08:00 Mechanical Ventilator Mechanical Ventilator Mechanical Ventilator Mechanical Ventilator 09/09/19 08:00 40 09/09/19 08:00 98.5 87 19 154/79 (104) 100 09/09/19 07:00 89 22 141/75 (97) 100 09/09/19 06:59 96 18 100 Mechanical Ventilator 40 95 18 40 09/09/19 06:11 156/98 09/09/19 06:00 99 24 156/98 (117) 100 09/09/19 05:15 91 18 40 09/09/19 05:00 92 24 153/92 (112) 100 09/09/19 04:00 98.7 90 24 143/88 (106) 100 09/09/19 04:00 40 09/09/19 04:00 88 09/09/19 04:00 Mechanical Ventilator Mechanical Ventilator Mechanical Ventilator Mechanical Ventilator 09/09/19 03:25 89 18 100 Mechanical Ventilator 40 91 18 40 09/09/19 03:00 88 24 130/80 (97) 100 09/09/19 02:00 89 24 118/76 (90) 100 09/09/19 01:00 99 24 109/52 (71) 100 09/09/19 00:45 100 18 40 09/09/19 00:00 96 09/09/19 00:00 98.8 108 26 109/52 (71) 98 09/09/19 00:00 109/52 09/09/19 00:00 Mechanical Ventilator Mechanical Ventilator Mechanical Ventilator Mechanical Ventilator 09/09/19 00:00 40 09/08/19 23:31 88 18 100 Mechanical Ventilator 40 92 19 40 09/08/19 23:00 91 24 134/66 (88) 100 09/08/19 22:00 91 24 143/65 (91) 99 09/08/19 21:38 93 18 40 09/08/19 21:00 97 24 155/81 (105) 100 09/08/19 20:00 87 09/08/19 20:00 40 09/08/19 20:00 Mechanical Ventilator Mechanical Ventilator Mechanical Ventilator Mechanical Ventilator 09/08/19 20:00 97.9 94 26 158/83 (108) 99 09/08/19 19:25 86 19 100 Mechanical Ventilator 40 87 18 40 09/08/19 19:00 76 30 144/70 (94) 100 09/08/19 18:43 147/65 09/08/19 18:02 79 142/56 09/08/19 18:00 80 23 142/56 (84) 100 09/08/19 18:00 75 26 142/56 (84) 100 09/08/19 17:15 95 22 40 09/08/19 17:00 101 26 114/76 (89) 99 09/08/19 17:00 40 09/08/19 16:00 40 09/08/19 16:00 97.7 92 34 163/73 (103) 99 09/08/19 16:00 Mechanical Ventilator Mechanical Ventilator Mechanical Ventilator Mechanical Ventilator 09/08/19 16:00 107 09/08/19 15:20 93 19 40 09/08/19 15:00 94 30 133/81 (98) 100 09/08/19 14:03 86 129/70 (89) 100 09/08/19 13:30 40 09/08/19 13:26 82 20 110/58 (75) 99 09/08/19 13:25 82 20 100 I&O Intake and Output 09/08/19 09/09/19 19:00 07:00 Intake Total 345 ml 350 ml Output Total 1075 ml 120 ml Balance -730 ml 230 ml Intake Free Water 100 ml Tube Feeding 245 ml 350 ml Output Urine Total 75 ml 120 ml Hemodialysis UF 1000 ml # Bowel Movements 2 Dressing: other Wound: other Drains: other Cardiovascular: RSR Respiratory: decreased breath sounds Abdomen: soft, non-tender, present bowel sounds Extremities: no cyanosis Laboratory Tests Test 09/09/19 03:35 White Blood Count 9.2 K/UL (4.8-10.8) Red Blood Count 3.50 M/UL (4.20-5.40) L Hemoglobin 10.4 G/DL (12.0-16.0) L Hematocrit 31.4 % (37.0-47.0) L Mean Corpuscular Volume 90 FL (80-99) Mean Corpuscular Hemoglobin 29.6 PG (27.0-31.0) Mean Corpuscular Hemoglobin Concent 33.1 G/DL (32.0-36.0) Red Cell Distribution Width 14.8 % (11.6-14.8) Platelet Count 252 K/UL (150-450) Mean Platelet Volume 4.4 FL (6.5-10.1) L Neutrophils (%) (Auto) 65.1 % (45.0-75.0) Lymphocytes (%) (Auto) 26.6 % (20.0-45.0) Monocytes (%) (Auto) 7.1 % (1.0-10.0) Eosinophils (%) (Auto) 0.7 % (0.0-3.0) Basophils (%) (Auto) 0.5 % (0.0-2.0) Sodium Level 141 MMOL/L (136-145) Potassium Level 3.6 MMOL/L (3.5-5.1) Chloride Level 105 MMOL/L (98-107) Carbon Dioxide Level 31 MMOL/L (21-32) Anion Gap 5 mmol/L (5-15) Blood Urea Nitrogen 35 mg/dL (7-18) H Creatinine 2.6 MG/DL (0.55-1.30) H Estimat Glomerular Filtration Rate 17.7 mL/min (>60) Glucose Level 103 MG/DL (74-106) Uric Acid 3.4 MG/DL (2.6-7.2) Calcium Level 9.1 MG/DL (8.5-10.1) Phosphorus Level 1.6 MG/DL (2.5-4.9) L Magnesium Level 2.1 MG/DL (1.8-2.4) Total Bilirubin 0.6 MG/DL (0.2-1.0) Aspartate Amino Transf (AST/SGOT) 28 U/L (15-37) Alanine Aminotransferase (ALT/SGPT) 12 U/L (12-78) Alkaline Phosphatase 130 U/L (46-116) H Total Creatine Kinase 84 U/L (26-308) C-Reactive Protein, Quantitative 18.8 mg/dL (0.00-0.90) H Pro-B-Type Natriuretic Peptide > 19890 pg/mL (0-125) H Total Protein 6.6 G/DL (6.4-8.2) Albumin 2.5 G/DL (3.4-5.0) L Globulin 4.1 g/dL Albumin/Globulin Ratio 0.6 (1.0-2.7) L Assessment Post-op Diagnosis same Plan Problems: (1) Malnutrition Assessment & Plan: DAILY ESTIMATED NEEDS: Needs based on ESRD+ HD, underweight, wound/ 39.5kg 35-40 kcals/kg 1598-9483 total kcals 1.25-1.8 g protein/kg 49-71 g total protein 20-22 mL/kg 790-869 total fluid mLs NUTRITION DIAGNOSIS: * Increased kcal and protein needs r/t underweight status, HD needs, wuond healing as evidenced by pt is underweight per guidelines, ESRD, on HD, admitted non-blanching erythema wounds @ BL heels and sacrum * Swallowing difficulty R/T dysphagia as evidenced by [employer] recommends temporary nonoral feeding at this time, s/p NGT insertion, on NGT feeding-> now s/p self removal, NPO. CURRENT TF:NPO PO DIET RECOMMENDATIONS: WHEN SAFE FOR ORAL DIET -> renal/ texture per [employer]OP[employer] ENTERAL NUTRITION RECOMMENDATIONS: W/ GI access: Nepro @ 35ml/hr x 22 hrs to provide 770ml, 1386kcal, 62g prot, 560ml free water * W/ GI access, resume TF on Nepro * Initiate Nepro @ 15ml/hr x 6 hrs, advance 10ml q 4-6 hrs as tolerated to goal rate. * Hold 1 hour before and after Synthroid med * HOB over 30 degrees/ water flush per MD. ADDITIONAL RECOMMENDATIONS: 1) Calibrated bed scale wt for accurate CBW -> daily wt monitoring Per HD record: dry wt on 07/30=39.5kg (87lbs) 2) Wound care: (W/ GI access) add Nephorivte x 1 + Balta BID 3) Monitor NPO status: without GI access at this time, s/p pulling out NGT 4) Monitor for hypoglycemia while NPO 5) Monitor for continuity of HD (2) Septic arthritis Assessment & Plan: Pt presented on admission with generalized scaly rash . pt noted to be restless and scratching at skin. Bleeding from oral mucosa noted. Joint deformity noted to R shoulder. Surgical incision approximated with 11 sutures. Erythema but no exudate,or elevation in skin temp at site of incision. Historical incision R hip that is tunneled.Small amt seropurulent exudate noted. Periwound is erythematous,but no elevation in skin temp noted. No odor noted. Non-blanching erythema noted to sacrum. Perianal area is erythematous and excoriated. L heel is boggy with non-blanching erythema. R heel is soft with non-blanching erythema. No evidence of skin breakdown to all other bony prominences. Tx.plan: Cover R shoulder with Drsg and change daily and prn. Cleanse R hip wound with Saline. Apply Therahoney.Apply Cavilon Skin Barrier periwound. Cover with Optifoam drsg. Change every 3 days and prn. Apply Moisture Barrier Paste to perianal area and buttocks. Cover Sacrum with Optifoam drsg. Change every 3 days and prn. Apply Cavilon Skin Barrier to both heels. Cover each heel with Optifoam drsg. Change every 7 days and prn. APM/ELVIA Mattress overlay. Reposition at least every 2hours or as tolerated. Off-load heels with pillow. HD cath necessary HD as renal likely will need intubation (3) Wound, open, hip or thigh with complication Assessment & Plan: slow healing will need nutritional optimization difficult ng tube peg when stable sutures removed from right shoulder comfortable wean vent may need trach (4) Abscess of right hip (5) possible septic arthritis (6) Renal failure (ARF), acute on chronic Assessment & Plan: cont HD will need tunneled cath placement okay to use fem line for now but will need change soon. line monitored and clean dressings going well (7) Pneumonia Assessment & Plan: intubated on vent support not tolerating weaning may need trach hemothorax likely after thoracentesis Chest CT noted Left chest tube placed With plan for trach chest tube can be considered but overall prognosis is very poor s/p trach left chest tub eout cxr noted and okay downgrade Camilo James Sep 09, 2019 13:08
--- NOTE | 2019-09-09 18:42 | General Progress Note ---
Assessment/Plan Status: stable, not improved, unchanged, deteriorating Assessment/Plan: Assessment - Severe ulcerative esophagitis - Resp failure - s/p recent Chest tube - thrombocytopenia --> resolved - Renal failure - aspiration risk --> s/p PEG - anemia - bradycardia - Poor prognosis Recommendations - GT care - water flushes - elevate HOB - monitor H&H - vent Subjective Allergies: Coded Allergies: VANCOMYCIN (Unverified Allergy, Unknown, 08/02/19) Subjective Above noted No events overnight d/w RN Objective Last 24 Hour Vital Signs Date Time Temp Pulse Resp B/P (MAP) Pulse Ox O2 Delivery O2 Flow Rate FiO2 09/09/19 18:00 81 21 146/103 (117) 99 09/09/19 17:16 88 150/77 09/09/19 17:16 150/77 09/09/19 17:00 81 20 150/77 (101) 99 09/09/19 16:59 83 21 30 09/09/19 16:00 84 09/09/19 16:00 30 09/09/19 16:00 Mechanical Ventilator Mechanical Ventilator Mechanical Ventilator Mechanical Ventilator 09/09/19 16:00 98.7 83 18 169/77 (107) 100 09/09/19 15:00 85 18 156/95 (115) 100 09/09/19 14:35 80 18 100 Mechanical Ventilator 30 82 18 30 09/09/19 14:00 80 21 145/65 (91) 100 09/09/19 13:00 79 20 136/59 (84) 100 09/09/19 12:30 82 18 35 09/09/19 12:00 85 09/09/19 12:00 Mechanical Ventilator Mechanical Ventilator Mechanical Ventilator Mechanical Ventilator 09/09/19 12:00 40 09/09/19 12:00 98.5 83 19 137/67 (90) 100 09/09/19 11:40 143/116 09/09/19 11:00 85 18 143/116 (125) 100 09/09/19 10:31 84 18 99 Mechanical Ventilator 40 85 18 40 09/09/19 10:00 80 11 127/61 (83) 100 09/09/19 09:00 82 18 40 09/09/19 09:00 85 21 132/100 (111) 100 09/09/19 08:30 87 154/79 09/09/19 08:00 90 09/09/19 08:00 Mechanical Ventilator Mechanical Ventilator Mechanical Ventilator Mechanical Ventilator 09/09/19 08:00 40 09/09/19 08:00 98.5 87 19 154/79 (104) 100 09/09/19 07:00 89 22 141/75 (97) 100 09/09/19 06:59 96 18 100 Mechanical Ventilator 40 95 18 40 09/09/19 06:11 156/98 09/09/19 06:00 99 24 156/98 (117) 100 09/09/19 05:15 91 18 40 09/09/19 05:00 92 24 153/92 (112) 100 09/09/19 04:00 98.7 90 24 143/88 (106) 100 09/09/19 04:00 40 09/09/19 04:00 88 09/09/19 04:00 Mechanical Ventilator Mechanical Ventilator Mechanical Ventilator Mechanical Ventilator 09/09/19 03:25 89 18 100 Mechanical Ventilator 40 91 18 40 09/09/19 03:00 88 24 130/80 (97) 100 09/09/19 02:00 89 24 118/76 (90) 100 09/09/19 01:00 99 24 109/52 (71) 100 09/09/19 00:45 100 18 40 09/09/19 00:00 96 09/09/19 00:00 98.8 108 26 109/52 (71) 98 09/09/19 00:00 109/52 09/09/19 00:00 Mechanical Ventilator Mechanical Ventilator Mechanical Ventilator Mechanical Ventilator 09/09/19 00:00 40 09/08/19 23:31 88 18 100 Mechanical Ventilator 40 92 19 40 09/08/19 23:00 91 24 134/66 (88) 100 09/08/19 22:00 91 24 143/65 (91) 99 09/08/19 21:38 93 18 40 09/08/19 21:00 97 24 155/81 (105) 100 09/08/19 20:00 87 09/08/19 20:00 40 09/08/19 20:00 Mechanical Ventilator Mechanical Ventilator Mechanical Ventilator Mechanical Ventilator 09/08/19 20:00 97.9 94 26 158/83 (108) 99 09/08/19 19:25 86 19 100 Mechanical Ventilator 40 87 18 40 09/08/19 19:00 76 30 144/70 (94) 100 09/08/19 18:43 147/65 Intake and Output 09/08/19 09/09/19 19:00 07:00 Intake Total 345 ml 350 ml Output Total 1075 ml 120 ml Balance -730 ml 230 ml Intake Free Water 100 ml Tube Feeding 245 ml 350 ml Output Urine Total 75 ml 120 ml Hemodialysis UF 1000 ml # Bowel Movements 2 Laboratory Tests 09/09/19 03:35: White Blood Count 9.2, Red Blood Count 3.50L, Hemoglobin 10.4L, Hematocrit 31.4L , Mean Corpuscular Volume 90, Mean Corpuscular Hemoglobin 29.6, Mean Corpuscular Hemoglobin Concent 33.1, Red Cell Distribution Width 14.8, Platelet Count 252, Mean Platelet Volume 4.4L, Neutrophils (%) (Auto) 65.1, Lymphocytes ( %) (Auto) 26.6, Monocytes (%) (Auto) 7.1, Eosinophils (%) (Auto) 0.7, Basophils (%) (Auto) 0.5, Sodium Level 141, Potassium Level 3.6, Chloride Level 105, Carbon Dioxide Level 31, Anion Gap 5, Blood Urea Nitrogen 35H, Creatinine 2.6H, Estimat Glomerular Filtration Rate 17.7, Glucose Level 103, Uric Acid 3.4, Calcium Level 9.1, Phosphorus Level 1.6L, Magnesium Level 2.1, Total Bilirubin 0.6, Aspartate Amino Transf (AST/SGOT) 28, Alanine Aminotransferase (ALT/SGPT) 12, Alkaline Phosphatase 130H, Total Creatine Kinase 84, C-Reactive Protein, Quantitative 18.8H, Pro-B-Type Natriuretic Peptide > 20958Y, Total Protein 6.6, Albumin 2.5L, Globulin 4.1, Albumin/Globulin Ratio 0.6L Height (Feet): 5 Height (Inches): 4.00 Weight (Pounds): 110 Objective Debilitated frail woman NCAT (+) on vent supple, (+) trach scattered ronchi RR abd soft ND NT, (+) GT no edema Cristy Elizondo MD Sep 09, 2019 18:42
[2019-09-09] MEDS: Dyna-Hex 2% Top Sol 2oz TOPIC SCH (19:58)
[2019-09-09] MEDS: Epoetin Alfa-EPBX(ESRD on dialysis)4000 units/ml vial SUBQ SCH (20:33)
--- NOTE | 2019-09-09 23:45 | Progress Note ---
DATE: 09/09/2019 SUBJECTIVE: The patient is status post tracheostomy and drainage of hemothorax. She is status post chest tube, now removed. Blood pressure parameters remained stable. Monitored rhythm, sinus. She remains on ventilator support. OBJECTIVE: LUNGS: Bilateral breath sounds. Rhonchi. HEART: Regular rhythm and rate. Normal S1, S2. ABDOMEN: Soft. GJ-tube intact. EXTREMITIES: Trace edema. LABORATORY DATA: White count 9, hemoglobin 10. Potassium 3.6, BUN 35, creatinine 2.6. IMPRESSION: 1. Respiratory failure. 2. End-stage renal disease. 3. Status post removal of thoracostomy. 4. Status post tracheostomy for respiratory failure. 5. Acute on chronic diastolic congestive heart failure. 6. Sinus node disease with episodes of bradycardia. PLAN: 1. Weaning efforts. 2. Nutrition by feeding tube. 3. Avoid beta-blockers or drugs with negative chronotropic potential. 4. Hemodialysis with ultrafiltration for volume management. 5. Remains in serious condition with guarded prognosis. Abel Stubbs M.D. DR: Heather JOB#: [id number] CC:
[2019-09-10] VITALS (19 sets, daily range): BP systolic 130–148; BP diastolic 58–92
[2019-09-10] MEDS: HydrALAZINE 25mg tab NG SCH ×4 (00:08→18:48)
[2019-09-10] MEDS: Albuterol/Ipratropium 3ml neb HHN SCH ×6 (03:13→22:44)
[2019-09-10 04:26] LABS: BASOPHILS % (AUTO) 0.5 % (0.0-2.0); EOSINOPHILS % (AUTO) 0.4 % (0.0-3.0); HEMATOCRIT 29.5 % (37.0-47.0); LYMPHOCYTES % (AUTO) 18.3 % (20.0-45.0); MEAN CORPUSCULAR VOLUME 89 FL (80-99); MONOCYTES % (AUTO) 4.3 % (1.0-10.0); NEUTROPHILS % (AUTO) 76.7 % (45.0-75.0); PLATELET COUNT 327 K/UL (150-450); RED BLOOD COUNT 3.33 M/UL (4.20-5.40); RED CELL DISTRIBUTION WIDTH 14.8 % (11.6-14.8); WHITE BLOOD COUNT 12.4 K/UL (4.8-10.8)
[2019-09-10 04:48] LABS: ALANINE AMINOTRANSFERASE 7 U/L (12-78); ALBUMIN 2.4 G/DL (3.4-5.0); ALBUMIN/GLOBULIN RATIO 0.5 (1.0-2.7); ALKALINE PHOSPHATASE 148 U/L (46-116); ANION GAP 7 mmol/L (5-15); ASPARTATE AMINO TRANSFERASE 30 U/L (15-37); BILIRUBIN,TOTAL 0.7 MG/DL (0.2-1.0); BLOOD UREA NITROGEN 41 mg/dL (7-18); CALCIUM 9.1 MG/DL (8.5-10.1); CARBON DIOXIDE 31 MMOL/L (21-32); CHLORIDE 103 MMOL/L (98-107); CREATININE 3.1 MG/DL (0.55-1.30); PHOSPHORUS 2.4 MG/DL (2.5-4.9); POTASSIUM 2.9 MMOL/L (3.5-5.1); SODIUM 141 MMOL/L (136-145)
--- NOTE | 2019-09-10 08:20 | General Progress Note ---
Assessment/Plan Problem List: (1) Hypothyroid ICD Codes: E03.9 - Hypothyroidism, unspecified SNOMED: 90486509 (2) ESRD (end stage renal disease) on dialysis ICD Codes: N18.6 - End stage renal disease; Z99.2 - Dependence on renal dialysis SNOMED: 214268441 (3) Hypotension ICD Codes: I95.9 - Hypotension, unspecified SNOMED: 38590016 Qualifiers: Qualified Codes: I95.3 - Hypotension of hemodialysis (4) Pneumonia ICD Codes: J18.9 - Pneumonia, unspecified organism SNOMED: 825935926 Qualifiers: Qualified Codes: J18.9 - Pneumonia, unspecified organism (5) Diabetes mellitus ICD Codes: E11.9 - Type 2 diabetes mellitus without complications SNOMED: 56309528 Status: stable, not improved, unchanged, deteriorating Assessment/Plan: TSH improved and free T4 is normal continue Levothyroxine IV 50 mcg daily continue glucose monitoring without insulin coverage hypoglycemia protocol in order Subjective ROS Limited/Unobtainable: Yes Allergies: Coded Allergies: VANCOMYCIN (Unverified Allergy, Unknown, 08/02/19) Subjective events noted interval notes reviewed on vent in ICU Item Value Date Time Bedside Blood Glucose 152 mg/dl H 09/10/19 0600 Bedside Blood Glucose 157 mg/dl H 09/10/19 0000 Objective Last 24 Hour Vital Signs Date Time Temp Pulse Resp B/P (MAP) Pulse Ox O2 Delivery O2 Flow Rate FiO2 09/10/19 08:00 Mechanical Ventilator Mechanical Ventilator Mechanical Ventilator Mechanical Ventilator 09/10/19 08:00 30 09/10/19 08:00 98.0 85 17 148/62 (90) 100 09/10/19 07:24 78 18 100 30 81 18 30 09/10/19 07:00 78 18 130/67 (88) 100 09/10/19 06:05 146/92 09/10/19 06:00 97 24 146/92 (110) 100 09/10/19 05:00 93 19 147/68 (94) 100 09/10/19 04:39 88 18 30 09/10/19 04:00 Mechanical Ventilator Mechanical Ventilator Mechanical Ventilator Mechanical Ventilator 09/10/19 04:00 30 09/10/19 04:00 98.8 86 18 147/66 (93) 100 09/10/19 04:00 99 09/10/19 03:13 93 20 100 30 94 20 30 09/10/19 03:00 91 18 143/76 (98) 98 09/10/19 02:00 88 22 148/76 (100) 100 09/10/19 01:08 91 18 30 09/10/19 01:00 87 15 145/71 (95) 100 09/10/19 00:08 142/72 09/10/19 00:00 30 09/10/19 00:00 98.6 93 26 142/72 (95) 99 09/10/19 00:00 Mechanical Ventilator Mechanical Ventilator Mechanical Ventilator Mechanical Ventilator 09/10/19 00:00 92 09/09/19 23:06 86 18 100 30 88 20 30 09/09/19 23:00 84 19 158/64 (95) 99 09/09/19 22:00 87 19 139/73 (95) 100 09/09/19 21:01 90 21 30 09/09/19 21:00 92 21 124/75 (91) 100 09/09/19 20:00 30 09/09/19 20:00 89 09/09/19 20:00 97.9 90 24 154/71 (98) 100 09/09/19 20:00 Mechanical Ventilator Mechanical Ventilator Mechanical Ventilator Mechanical Ventilator 09/09/19 19:07 81 24 100 30 82 20 30 09/09/19 19:00 79 16 151/86 (107) 100 09/09/19 18:00 81 21 146/103 (117) 99 09/09/19 17:16 88 150/77 09/09/19 17:16 150/77 09/09/19 17:00 81 20 150/77 (101) 99 09/09/19 16:59 83 21 30 09/09/19 16:00 84 09/09/19 16:00 30 09/09/19 16:00 Mechanical Ventilator Mechanical Ventilator Mechanical Ventilator Mechanical Ventilator 09/09/19 16:00 98.7 83 18 169/77 (107) 100 09/09/19 15:00 85 18 156/95 (115) 100 09/09/19 14:35 80 18 100 Mechanical Ventilator 30 82 18 30 09/09/19 14:00 80 21 145/65 (91) 100 09/09/19 13:00 79 20 136/59 (84) 100 09/09/19 12:30 82 18 35 09/09/19 12:00 85 09/09/19 12:00 Mechanical Ventilator Mechanical Ventilator Mechanical Ventilator Mechanical Ventilator 09/09/19 12:00 40 09/09/19 12:00 98.5 83 19 137/67 (90) 100 09/09/19 11:40 143/116 09/09/19 11:00 85 18 143/116 (125) 100 09/09/19 10:31 84 18 99 Mechanical Ventilator 40 85 18 40 09/09/19 10:00 80 11 127/61 (83) 100 09/09/19 09:00 82 18 40 09/09/19 09:00 85 21 132/100 (111) 100 09/09/19 08:30 87 154/79 Intake and Output 09/09/19 09/10/19 19:00 07:00 Intake Total 750.000 ml 335 ml Output Total 310 ml 135 ml Balance 440.000 ml 200 ml Intake Free Water 50 ml IV Total 280.000 ml Tube Feeding 420 ml 335 ml Output Urine Total 310 ml 135 ml # Bowel Movements 2 1 Laboratory Tests 09/10/19 03:50: White Blood Count 12.4H, Red Blood Count 3.33L, Hemoglobin 10.0L, Hematocrit 29.5L, Mean Corpuscular Volume 89, Mean Corpuscular Hemoglobin 30.1, Mean Corpuscular Hemoglobin Concent 33.9, Red Cell Distribution Width 14.8, Platelet Count 327, Mean Platelet Volume 4.4L, Neutrophils (%) (Auto) 76.7H, Lymphocytes (%) (Auto) 18.3L, Monocytes (%) (Auto) 4.3, Eosinophils (%) (Auto) 0.4, Basophils (%) (Auto) 0.5, Sodium Level 141, Potassium Level 2.9L, Chloride Level 103, Carbon Dioxide Level 31, Anion Gap 7, Blood Urea Nitrogen 41H, Creatinine 3.1H, Estimat Glomerular Filtration Rate 14.5, Glucose Level 153H, Calcium Level 9.1, Phosphorus Level 2.4L, Magnesium Level 2.0, Total Bilirubin 0.7, Aspartate Amino Transf (AST/SGOT) 30, Alanine Aminotransferase (ALT/SGPT) 7L, Alkaline Phosphatase 148H, C-Reactive Protein, Quantitative 25.4H, Pro-B- Type Natriuretic Peptide > 81950D, Total Protein 7.0, Albumin 2.4L, Globulin 4.6 , Albumin/Globulin Ratio 0.5L Height (Feet): 5 Height (Inches): 4.00 Weight (Pounds): 110 General Appearance: other - on vent EENT: other - tracheostomy Cardiovascular: normal rate Respiratory/Chest: decreased breath sounds Objective Current Medications Medications (Trade) Dose Ordered Sig/Javier Route PRN Reason Start Time Stop Time Status Last Admin Dose Admin Acetaminophen (Tylenol) 650 mg Q4H PRN GT Mild Pain/Temp > 100.5 09/03/19 07:00 10/03/19 06:59 09/09/19 06:13 Acetylcysteine (Mucomyst) 100 mg Q4HRT N 08/31/19 19:00 11/29/19 18:59 09/10/19 07:27 Albuterol/ Ipratropium (Albuterol/ Ipratropium) 3 ml Q4HRT N 09/05/19 23:00 09/10/19 22:59 09/10/19 07:27 Amlodipine Besylate (Norvasc) 5 mg BID NG 08/23/19 01:45 09/22/19 01:44 09/09/19 17:16 Atropine Sulfate (Atropine) 1 mg Q4H PRN IVP Per rx protocol 08/13/19 08:30 09/12/19 08:29 Chlorhexidine Gluconate (Nae-Hex 2%) 1 applic DAILY@2000 TOPIC 08/15/19 20:00 09/14/19 19:59 09/09/19 19:58 Dextrose (Dextrose 50%) 25 ml Q30M PRN IV Hypoglycemia 09/02/19 06:15 12/01/19 06:14 09/04/19 12:11 Dextrose (Dextrose 50%) 50 ml Q30M PRN IV Hypoglycemia 09/02/19 06:15 12/01/19 06:14 Epoetin Thomas (Epoetin Thomas(ESRD on dialysis)) 4,000 unit THU-THU-THU SUBQ 08/12/19 21:00 09/11/19 20:59 09/09/19 20:33 Hydralazine HCl (Apresoline) 10 mg Q4H PRN IV For High Blood Pressure 08/18/19 12:44 09/17/19 12:43 09/01/19 20:27 Hydralazine HCl (Apresoline) 25 mg Q6HR NG 08/23/19 06:00 09/22/19 05:59 09/10/19 06:05 Lansoprazole (Prevacid) 30 mg BID GT 08/19/19 09:00 09/18/19 08:59 09/09/19 17:17 Levothyroxine Sodium (Synthroid) 50 mcg DAILY@0630 ORAL 08/25/19 06:30 09/24/19 06:29 09/10/19 06:04 Midazolam HCl 100 ml @ 0 mls/hr Q24H PRN IV Agitation 09/05/19 18:15 09/12/19 18:14 Antonio Jacome MD Sep 10, 2019 08:20
--- NOTE | 2019-09-10 09:56 | Critical Care Progress Note ---
Assessment/Plan Assessment/Plan respiratory failure hemoptysis resolved hypoxemia chronic renal failure toxic met encephalopathy severe protein calorie malnutrition cachexia left lung whiteout/collapse, improved with intubation s/p intubation anemia ? blood loss pulmonary edema with elevated BNP + pleural effusion ? hemothorax s/p CT placement and removal s/p trach PLAN trach care monitor for bleeding monitor effusion replace K care noted and reviewed monitor ins and outs reviewed care and continue to monitor unable to wean off vent prognosis poor overall keep negative and monitor osmotic pressures ID and other specialist reviewed close follow up discussed elevated head and monitor ROM watch fluid status and keep negative nutrition and monitor residuals isolation as needed off load as able and monitor skin exam ROM as able ICU care and management critical at present requires ICU management and close follow up care feeds as able and monitor residuals medications/laboratory data/nursing notes/ICU care reviewed in detail note reviewed and edited care discussed with RN and RT ICU time spent >40 minutes coordinating care Critical Care - Subjective Interval Events: care noted events reviewed in ICU on 30% fio2 remains ill ROS Limited/Unobtainable: Yes Condition: critical EKG Rhythm: Sinus Rhythm Residuals: minimal Tube Feeding Tolerated: yes I&O: Intake and Output 09/09/19 09/10/19 19:00 07:00 Intake Total 750.000 ml 335 ml Output Total 310 ml 135 ml Balance 440.000 ml 200 ml Intake Free Water 50 ml IV Total 280.000 ml Tube Feeding 420 ml 335 ml Output Urine Total 310 ml 135 ml # Bowel Movements 2 1 Critical Care - Objective ET-Tube: 7.0 ET Position: 19 Last 24 Hour Vital Signs Date Time Temp Pulse Resp B/P (MAP) Pulse Ox O2 Delivery O2 Flow Rate FiO2 09/10/19 09:21 79 18 30 09/10/19 09:00 80 12 145/67 (93) 100 09/10/19 08:49 85 148/62 09/10/19 08:00 Mechanical Ventilator Mechanical Ventilator Mechanical Ventilator Mechanical Ventilator 09/10/19 08:00 30 09/10/19 08:00 98.0 85 17 148/62 (90) 100 09/10/19 07:48 84 09/10/19 07:24 78 18 100 30 81 18 30 09/10/19 07:00 78 18 130/67 (88) 100 09/10/19 06:05 146/92 09/10/19 06:00 97 24 146/92 (110) 100 09/10/19 05:00 93 19 147/68 (94) 100 09/10/19 04:39 88 18 30 09/10/19 04:00 Mechanical Ventilator Mechanical Ventilator Mechanical Ventilator Mechanical Ventilator 09/10/19 04:00 30 09/10/19 04:00 98.8 86 18 147/66 (93) 100 09/10/19 04:00 99 09/10/19 03:13 93 20 100 30 94 20 30 09/10/19 03:00 91 18 143/76 (98) 98 09/10/19 02:00 88 22 148/76 (100) 100 09/10/19 01:08 91 18 30 09/10/19 01:00 87 15 145/71 (95) 100 09/10/19 00:08 142/72 09/10/19 00:00 30 09/10/19 00:00 98.6 93 26 142/72 (95) 99 09/10/19 00:00 Mechanical Ventilator Mechanical Ventilator Mechanical Ventilator Mechanical Ventilator 09/10/19 00:00 92 09/09/19 23:06 86 18 100 30 88 20 30 09/09/19 23:00 84 19 158/64 (95) 99 09/09/19 22:00 87 19 139/73 (95) 100 09/09/19 21:01 90 21 30 09/09/19 21:00 92 21 124/75 (91) 100 09/09/19 20:00 30 09/09/19 20:00 89 09/09/19 20:00 97.9 90 24 154/71 (98) 100 09/09/19 20:00 Mechanical Ventilator Mechanical Ventilator Mechanical Ventilator Mechanical Ventilator 09/09/19 19:07 81 24 100 30 82 20 30 09/09/19 19:00 79 16 151/86 (107) 100 09/09/19 18:00 81 21 146/103 (117) 99 09/09/19 17:16 88 150/77 09/09/19 17:16 150/77 09/09/19 17:00 81 20 150/77 (101) 99 09/09/19 16:59 83 21 30 09/09/19 16:00 84 09/09/19 16:00 30 09/09/19 16:00 Mechanical Ventilator Mechanical Ventilator Mechanical Ventilator Mechanical Ventilator 09/09/19 16:00 98.7 83 18 169/77 (107) 100 09/09/19 15:00 85 18 156/95 (115) 100 09/09/19 14:35 80 18 100 Mechanical Ventilator 30 82 18 30 09/09/19 14:00 80 21 145/65 (91) 100 09/09/19 13:00 79 20 136/59 (84) 100 09/09/19 12:30 82 18 35 09/09/19 12:00 85 09/09/19 12:00 Mechanical Ventilator Mechanical Ventilator Mechanical Ventilator Mechanical Ventilator 09/09/19 12:00 40 09/09/19 12:00 98.5 83 19 137/67 (90) 100 09/09/19 11:40 143/116 09/09/19 11:00 85 18 143/116 (125) 100 09/09/19 10:31 84 18 99 Mechanical Ventilator 40 85 18 40 09/09/19 10:00 80 11 127/61 (83) 100 Labs: Labs Test 09/08/19 03:33 09/09/19 03:35 09/10/19 03:50 White Blood Count 8.3 K/UL (4.8-10.8) 9.2 K/UL (4.8-10.8) 12.4 K/UL (4.8-10.8) Red Blood Count 3.33 M/UL (4.20-5.40) 3.50 M/UL (4.20-5.40) 3.33 M/UL (4.20-5.40) Hemoglobin 10.0 G/DL (12.0-16.0) 10.4 G/DL (12.0-16.0) 10.0 G/DL (12.0-16.0) Hematocrit 29.1 % (37.0-47.0) 31.4 % (37.0-47.0) 29.5 % (37.0-47.0) Mean Corpuscular Volume 87 FL (80-99) 90 FL (80-99) 89 FL (80-99) Mean Corpuscular Hemoglobin 29.9 PG (27.0-31.0) 29.6 PG (27.0-31.0) 30.1 PG (27.0-31.0) Mean Corpuscular Hemoglobin Concent 34.3 G/DL (32.0-36.0) 33.1 G/DL (32.0-36.0) 33.9 G/DL (32.0-36.0) Red Cell Distribution Width 14.0 % (11.6-14.8) 14.8 % (11.6-14.8) 14.8 % (11.6-14.8) Platelet Count 306 K/UL (150-450) 252 K/UL (150-450) 327 K/UL (150-450) Mean Platelet Volume 4.7 FL (6.5-10.1) 4.4 FL (6.5-10.1) 4.4 FL (6.5-10.1) Neutrophils (%) (Auto) 63.7 % (45.0-75.0) 65.1 % (45.0-75.0) 76.7 % (45.0-75.0) Lymphocytes (%) (Auto) 27.5 % (20.0-45.0) 26.6 % (20.0-45.0) 18.3 % (20.0-45.0) Monocytes (%) (Auto) 7.0 % (1.0-10.0) 7.1 % (1.0-10.0) 4.3 % (1.0-10.0) Eosinophils (%) (Auto) 1.2 % (0.0-3.0) 0.7 % (0.0-3.0) 0.4 % (0.0-3.0) Basophils (%) (Auto) 0.7 % (0.0-2.0) 0.5 % (0.0-2.0) 0.5 % (0.0-2.0) Sodium Level 139 MMOL/L (136-145) 141 MMOL/L (136-145) 141 MMOL/L (136-145) Potassium Level 3.9 MMOL/L (3.5-5.1) 3.6 MMOL/L (3.5-5.1) 2.9 MMOL/L (3.5-5.1) Chloride Level 103 MMOL/L (98-107) 105 MMOL/L (98-107) 103 MMOL/L (98-107) Carbon Dioxide Level 28 MMOL/L (21-32) 31 MMOL/L (21-32) 31 MMOL/L (21-32) Anion Gap 8 mmol/L (5-15) 5 mmol/L (5-15) 7 mmol/L (5-15) Blood Urea Nitrogen 53 mg/dL (7-18) 35 mg/dL (7-18) 41 mg/dL (7-18) Creatinine 3.8 MG/DL (0.55-1.30) 2.6 MG/DL (0.55-1.30) 3.1 MG/DL (0.55-1.30) Estimat Glomerular Filtration Rate 11.4 mL/min (>60) 17.7 mL/min (>60) 14.5 mL/min (>60) Glucose Level 94 MG/DL (74-106) 103 MG/DL (74-106) 153 MG/DL (74-106) Calcium Level 9.7 MG/DL (8.5-10.1) 9.1 MG/DL (8.5-10.1) 9.1 MG/DL (8.5-10.1) Phosphorus Level 2.7 MG/DL (2.5-4.9) 1.6 MG/DL (2.5-4.9) 2.4 MG/DL (2.5-4.9) Magnesium Level 2.3 MG/DL (1.8-2.4) 2.1 MG/DL (1.8-2.4) 2.0 MG/DL (1.8-2.4) Total Bilirubin 0.5 MG/DL (0.2-1.0) 0.6 MG/DL (0.2-1.0) 0.7 MG/DL (0.2-1.0) Aspartate Amino Transf (AST/SGOT) 26 U/L (15-37) 28 U/L (15-37) 30 U/L (15-37) Alanine Aminotransferase (ALT/SGPT) 7 U/L (12-78) 12 U/L (12-78) 7 U/L (12-78) Alkaline Phosphatase 116 U/L (46-116) 130 U/L (46-116) 148 U/L (46-116) C-Reactive Protein, Quantitative 18.1 mg/dL (0.00-0.90) 18.8 mg/dL (0.00-0.90) 25.4 mg/dL (0.00-0.90) Pro-B-Type Natriuretic Peptide > 90204 pg/mL (0-125) > 80406 pg/mL (0-125) > 97131 pg/mL (0-125) Total Protein 6.4 G/DL (6.4-8.2) 6.6 G/DL (6.4-8.2) 7.0 G/DL (6.4-8.2) Albumin 2.1 G/DL (3.4-5.0) 2.5 G/DL (3.4-5.0) 2.4 G/DL (3.4-5.0) Globulin 4.3 g/dL 4.1 g/dL 4.6 g/dL Albumin/Globulin Ratio 0.5 (1.0-2.7) 0.6 (1.0-2.7) 0.5 (1.0-2.7) Uric Acid 3.4 MG/DL (2.6-7.2) Total Creatine Kinase 84 U/L (26-308) Objective: WDWN NAD intubated now with trach reduced breath sounds scattered rhonchi; CT removed [id number] without MRG NABS nontender no HSM no CCE contractures feeding tube in place no distention reduced LOC and weak nonfocal cachectic reviewed and edited Accucheck: 152 Malcolm Cruz MD Sep 10, 2019 09:56
[2019-09-10] MEDS ORDERED: Potassium Phosphate 15mm/250ml 250 ML IVPB SCH (10:00)
--- NOTE | 2019-09-10 11:45 | Nephrology Progress Note ---
Assessment/Plan Problem List: (1) ESRD (end stage renal disease) on dialysis (2) Malnutrition (3) Anemia in CKD (chronic kidney disease) (4) Hypotension (5) Thrombocytopenia (6) Sepsis Assessment: klebsiella in blood Assessment -Early sepsis with shock. -Healthcare-associated pneumonia. -Severe protein-calorie malnutrition. -Thrombocytopenia. - End-stage renal disease. - History of hypertension. - Bradycardia. - HypoThyroid Plan K-Phos IV today tracheostomy September 07 Last dialysis September 07 Chest tube on the left side was put in on September 01 was discontinued September 07 Patient transfused 3 units of packed RBCs for low hemoglobin Remains full code Blood pressure fluctuating, will start hydralazine via NG tube for blood pressure Magnesium and potassium supplement intravenously as needed Patient underwent PEG placement August 16 patient remains intubated on ventilator Discussed with RN Aim to wean from ventilator or consider tracheostomy Permacath was removed on August 12 Dialysis 08/11 Transfusion as needed Patient had hematemesis meds IV as possible Surveillance blood cultures tomorrow Plan to put the permacath back in on Thursday if cultures are negative keep BP and BS in check Inflammatory markers per orders Subjective ROS Limited/Unobtainable: Yes Objective Objective Last 24 Hour Vital Signs Date Time Temp Pulse Resp B/P (MAP) Pulse Ox O2 Delivery O2 Flow Rate FiO2 09/10/19 11:12 74 18 100 Mechanical Ventilator 30 80 18 30 09/10/19 11:00 74 14 143/66 (91) 100 09/10/19 10:03 76 18 139/62 (87) 100 09/10/19 09:21 79 18 30 09/10/19 09:00 80 12 145/67 (93) 100 09/10/19 08:49 85 148/62 09/10/19 08:00 Mechanical Ventilator Mechanical Ventilator Mechanical Ventilator Mechanical Ventilator 09/10/19 08:00 30 09/10/19 08:00 98.0 85 17 148/62 (90) 100 09/10/19 07:48 84 09/10/19 07:24 78 18 100 Mechanical Ventilator 30 81 18 30 09/10/19 07:00 78 18 130/67 (88) 100 09/10/19 06:05 146/92 09/10/19 06:00 97 24 146/92 (110) 100 09/10/19 05:00 93 19 147/68 (94) 100 09/10/19 04:39 88 18 30 09/10/19 04:00 Mechanical Ventilator Mechanical Ventilator Mechanical Ventilator Mechanical Ventilator 09/10/19 04:00 30 09/10/19 04:00 98.8 86 18 147/66 (93) 100 09/10/19 04:00 99 09/10/19 03:13 93 20 100 30 94 20 30 09/10/19 03:00 91 18 143/76 (98) 98 09/10/19 02:00 88 22 148/76 (100) 100 09/10/19 01:08 91 18 30 09/10/19 01:00 87 15 145/71 (95) 100 09/10/19 00:08 142/72 09/10/19 00:00 30 09/10/19 00:00 98.6 93 26 142/72 (95) 99 09/10/19 00:00 Mechanical Ventilator Mechanical Ventilator Mechanical Ventilator Mechanical Ventilator 09/10/19 00:00 92 09/09/19 23:06 86 18 100 30 88 20 30 09/09/19 23:00 84 19 158/64 (95) 99 09/09/19 22:00 87 19 139/73 (95) 100 09/09/19 21:01 90 21 30 09/09/19 21:00 92 21 124/75 (91) 100 09/09/19 20:00 30 09/09/19 20:00 89 09/09/19 20:00 97.9 90 24 154/71 (98) 100 09/09/19 20:00 Mechanical Ventilator Mechanical Ventilator Mechanical Ventilator Mechanical Ventilator 09/09/19 19:07 81 24 100 30 82 20 30 09/09/19 19:00 79 16 151/86 (107) 100 09/09/19 18:00 81 21 146/103 (117) 99 09/09/19 17:16 88 150/77 09/09/19 17:16 150/77 09/09/19 17:00 81 20 150/77 (101) 99 09/09/19 16:59 83 21 30 09/09/19 16:00 84 09/09/19 16:00 30 09/09/19 16:00 Mechanical Ventilator Mechanical Ventilator Mechanical Ventilator Mechanical Ventilator 09/09/19 16:00 98.7 83 18 169/77 (107) 100 09/09/19 15:00 85 18 156/95 (115) 100 09/09/19 14:35 80 18 100 Mechanical Ventilator 30 82 18 30 09/09/19 14:00 80 21 145/65 (91) 100 09/09/19 13:00 79 20 136/59 (84) 100 09/09/19 12:30 82 18 35 09/09/19 12:00 85 09/09/19 12:00 Mechanical Ventilator Mechanical Ventilator Mechanical Ventilator Mechanical Ventilator 09/09/19 12:00 40 09/09/19 12:00 98.5 83 19 137/67 (90) 100 Intake and Output 09/09/19 09/10/19 19:00 07:00 Intake Total 750.000 ml 335 ml Output Total 310 ml 135 ml Balance 440.000 ml 200 ml Intake Free Water 50 ml IV Total 280.000 ml Tube Feeding 420 ml 335 ml Output Urine Total 310 ml 135 ml # Bowel Movements 2 1 Laboratory Tests 09/10/19 03:50: White Blood Count 12.4H, Red Blood Count 3.33L, Hemoglobin 10.0L, Hematocrit 29.5L, Mean Corpuscular Volume 89, Mean Corpuscular Hemoglobin 30.1, Mean Corpuscular Hemoglobin Concent 33.9, Red Cell Distribution Width 14.8, Platelet Count 327, Mean Platelet Volume 4.4L, Neutrophils (%) (Auto) 76.7H, Lymphocytes (%) (Auto) 18.3L, Monocytes (%) (Auto) 4.3, Eosinophils (%) (Auto) 0.4, Basophils (%) (Auto) 0.5, Sodium Level 141, Potassium Level 2.9L, Chloride Level 103, Carbon Dioxide Level 31, Anion Gap 7, Blood Urea Nitrogen 41H, Creatinine 3.1H, Estimat Glomerular Filtration Rate 14.5, Glucose Level 153H, Calcium Level 9.1, Phosphorus Level 2.4L, Magnesium Level 2.0, Total Bilirubin 0.7, Aspartate Amino Transf (AST/SGOT) 30, Alanine Aminotransferase (ALT/SGPT) 7L, Alkaline Phosphatase 148H, C-Reactive Protein, Quantitative 25.4H, Pro-B- Type Natriuretic Peptide > 08161U, Total Protein 7.0, Albumin 2.4L, Globulin 4.6 , Albumin/Globulin Ratio 0.5L Height (Feet): 5 Height (Inches): 4.00 Weight (Pounds): 112 General Appearance: no apparent distress, lethargic EENT: other - Tracheostomy connected to the ventilator Cardiovascular: normal rate Respiratory/Chest: decreased breath sounds Abdomen: soft Objective no change William Blackwood MD Sep 10, 2019 11:45
--- NOTE | 2019-09-10 12:20 | General Progress Note ---
Assessment/Plan Problem List: (1) Failure to thrive (0-17) ICD Codes: R62.51 - Failure to thrive (0-17) SNOMED: 817337661 (2) Hypertensive kidney disease ICD Codes: I12.9 - Hypertensive chronic kidney disease with stage 1 through stage 4 chronic kidney disease, or unspecified chronic kidney disease SNOMED: 88045763 (3) Pneumonia ICD Codes: J18.9 - Pneumonia, unspecified organism SNOMED: 443163750 Qualifiers: Qualified Codes: J18.9 - Pneumonia, unspecified organism (4) ESRD (end stage renal disease) ICD Codes: N18.6 - End stage renal disease SNOMED: 35544494 (5) Septic arthritis ICD Codes: M00.9 - Pyogenic arthritis, unspecified SNOMED: 432445982 (6) Thrombocytopenia ICD Codes: D69.6 - Thrombocytopenia, unspecified SNOMED: 918379501 (7) Hypotension ICD Codes: I95.9 - Hypotension, unspecified SNOMED: 60422032 Qualifiers: Qualified Codes: I95.3 - Hypotension of hemodialysis (8) Malnutrition ICD Codes: E46 - Unspecified protein-calorie malnutrition SNOMED: 81550863 Status: stable, not improved, unchanged, deteriorating Assessment/Plan: Continue ventilatory support. Respiratory treatments and suctioning. Monitor chest x-ray. Antibiotics per ID. Hemodialysis per renal. Monitor labs. Discharge planning. Subjective ROS Limited/Unobtainable: No Constitutional: Reports: malaise, weakness HEENT: Reports: no symptoms Cardiovascular: Reports: no symptoms Respiratory: Reports: shortness of breath Gastrointestinal/Abdominal: Reports: difficulty swallowing Genitourinary: Reports: no symptoms Neurologic/Psychiatric: Reports: pre-existing deficit Endocrine: Reports: no symptoms Hematologic/Lymphatic: Reports: anemia Allergies: Coded Allergies: VANCOMYCIN (Unverified Allergy, Unknown, 08/02/19) All Systems: reviewed and negative except above Subjective stable. awake and alert. no distress. d/w staff. no events last night. Patient is resting on the ventilator. She opens her eyes. No distress. Objective Last 24 Hour Vital Signs Date Time Temp Pulse Resp B/P (MAP) Pulse Ox O2 Delivery O2 Flow Rate FiO2 09/10/19 12:08 97.9 80 22 145/58 (87) 100 09/10/19 12:00 30 09/10/19 12:00 Mechanical Ventilator Mechanical Ventilator Mechanical Ventilator Mechanical Ventilator 09/10/19 11:12 74 18 100 Mechanical Ventilator 30 80 18 30 09/10/19 11:00 74 14 143/66 (91) 100 09/10/19 10:03 76 18 139/62 (87) 100 09/10/19 09:21 79 18 30 09/10/19 09:00 80 12 145/67 (93) 100 09/10/19 08:49 85 148/62 09/10/19 08:00 Mechanical Ventilator Mechanical Ventilator Mechanical Ventilator Mechanical Ventilator 09/10/19 08:00 30 09/10/19 08:00 98.0 85 17 148/62 (90) 100 09/10/19 07:48 84 09/10/19 07:24 78 18 100 Mechanical Ventilator 30 81 18 30 09/10/19 07:00 78 18 130/67 (88) 100 09/10/19 06:05 146/92 09/10/19 06:00 97 24 146/92 (110) 100 09/10/19 05:00 93 19 147/68 (94) 100 09/10/19 04:39 88 18 30 09/10/19 04:00 Mechanical Ventilator Mechanical Ventilator Mechanical Ventilator Mechanical Ventilator 09/10/19 04:00 30 09/10/19 04:00 98.8 86 18 147/66 (93) 100 09/10/19 04:00 99 09/10/19 03:13 93 20 100 30 94 20 30 09/10/19 03:00 91 18 143/76 (98) 98 09/10/19 02:00 88 22 148/76 (100) 100 09/10/19 01:08 91 18 30 09/10/19 01:00 87 15 145/71 (95) 100 09/10/19 00:08 142/72 09/10/19 00:00 30 09/10/19 00:00 98.6 93 26 142/72 (95) 99 09/10/19 00:00 Mechanical Ventilator Mechanical Ventilator Mechanical Ventilator Mechanical Ventilator 09/10/19 00:00 92 09/09/19 23:06 86 18 100 30 88 20 30 09/09/19 23:00 84 19 158/64 (95) 99 09/09/19 22:00 87 19 139/73 (95) 100 09/09/19 21:01 90 21 30 09/09/19 21:00 92 21 124/75 (91) 100 09/09/19 20:00 30 09/09/19 20:00 89 09/09/19 20:00 97.9 90 24 154/71 (98) 100 09/09/19 20:00 Mechanical Ventilator Mechanical Ventilator Mechanical Ventilator Mechanical Ventilator 09/09/19 19:07 81 24 100 30 82 20 30 09/09/19 19:00 79 16 151/86 (107) 100 09/09/19 18:00 81 21 146/103 (117) 99 09/09/19 17:16 88 150/77 09/09/19 17:16 150/77 09/09/19 17:00 81 20 150/77 (101) 99 09/09/19 16:59 83 21 30 09/09/19 16:00 84 09/09/19 16:00 30 09/09/19 16:00 Mechanical Ventilator Mechanical Ventilator Mechanical Ventilator Mechanical Ventilator 09/09/19 16:00 98.7 83 18 169/77 (107) 100 09/09/19 15:00 85 18 156/95 (115) 100 09/09/19 14:35 80 18 100 Mechanical Ventilator 30 82 18 30 09/09/19 14:00 80 21 145/65 (91) 100 09/09/19 13:00 79 20 136/59 (84) 100 09/09/19 12:30 82 18 35 Intake and Output 09/09/19 09/10/19 19:00 07:00 Intake Total 750.000 ml 335 ml Output Total 310 ml 135 ml Balance 440.000 ml 200 ml Intake Free Water 50 ml IV Total 280.000 ml Tube Feeding 420 ml 335 ml Output Urine Total 310 ml 135 ml # Bowel Movements 2 1 Laboratory Tests 09/10/19 03:50: White Blood Count 12.4H, Red Blood Count 3.33L, Hemoglobin 10.0L, Hematocrit 29.5L, Mean Corpuscular Volume 89, Mean Corpuscular Hemoglobin 30.1, Mean Corpuscular Hemoglobin Concent 33.9, Red Cell Distribution Width 14.8, Platelet Count 327, Mean Platelet Volume 4.4L, Neutrophils (%) (Auto) 76.7H, Lymphocytes (%) (Auto) 18.3L, Monocytes (%) (Auto) 4.3, Eosinophils (%) (Auto) 0.4, Basophils (%) (Auto) 0.5, Sodium Level 141, Potassium Level 2.9L, Chloride Level 103, Carbon Dioxide Level 31, Anion Gap 7, Blood Urea Nitrogen 41H, Creatinine 3.1H, Estimat Glomerular Filtration Rate 14.5, Glucose Level 153H, Calcium Level 9.1, Phosphorus Level 2.4L, Magnesium Level 2.0, Total Bilirubin 0.7, Aspartate Amino Transf (AST/SGOT) 30, Alanine Aminotransferase (ALT/SGPT) 7L, Alkaline Phosphatase 148H, C-Reactive Protein, Quantitative 25.4H, Pro-B- Type Natriuretic Peptide > 33678L, Total Protein 7.0, Albumin 2.4L, Globulin 4.6 , Albumin/Globulin Ratio 0.5L Height (Feet): 5 Height (Inches): 4.00 Weight (Pounds): 112 Objective General Appearance: WD/WN, awake/moaning. Neck: supple +trach Cardiovascular: normal rate Respiratory/Chest: rhonchi - bilaterally Abdomen: normal bowel sounds, non tender, soft, no organomegaly Edema: no edema noted Arm (L), no edema noted Arm (R), no edema noted Leg (L), no edema noted Leg (R), no edema noted Pedal (L), no edema noted Pedal (R), no edema noted Generalized Neurologic: disoriented, aphasia Nate Beltran MD Sep 10, 2019 12:20
--- NOTE | 2019-09-10 14:19 | Surgery Progress Note ---
Surgery Progress Note Subjective Procedure Performed 1. tracheostomy 2 removal of left tube thoracostomy Symptoms: improved Objective Last 24 Hour Vital Signs Date Time Temp Pulse Resp B/P (MAP) Pulse Ox O2 Delivery O2 Flow Rate FiO2 09/10/19 13:00 76 13 136/63 (87) 100 09/10/19 12:38 145/58 09/10/19 12:08 97.9 80 22 145/58 (87) 100 09/10/19 12:00 30 09/10/19 12:00 Mechanical Ventilator Mechanical Ventilator Mechanical Ventilator Mechanical Ventilator 09/10/19 11:12 74 18 100 Mechanical Ventilator 30 80 18 30 09/10/19 11:00 74 14 143/66 (91) 100 09/10/19 10:03 76 18 139/62 (87) 100 09/10/19 09:21 79 18 30 09/10/19 09:00 80 12 145/67 (93) 100 09/10/19 08:49 85 148/62 09/10/19 08:00 Mechanical Ventilator Mechanical Ventilator Mechanical Ventilator Mechanical Ventilator 09/10/19 08:00 30 09/10/19 08:00 98.0 85 17 148/62 (90) 100 09/10/19 07:48 84 09/10/19 07:24 78 18 100 Mechanical Ventilator 30 81 18 30 09/10/19 07:00 78 18 130/67 (88) 100 09/10/19 06:05 146/92 09/10/19 06:00 97 24 146/92 (110) 100 09/10/19 05:00 93 19 147/68 (94) 100 09/10/19 04:39 88 18 30 09/10/19 04:00 Mechanical Ventilator Mechanical Ventilator Mechanical Ventilator Mechanical Ventilator 09/10/19 04:00 30 09/10/19 04:00 98.8 86 18 147/66 (93) 100 09/10/19 04:00 99 09/10/19 03:13 93 20 100 30 94 20 30 09/10/19 03:00 91 18 143/76 (98) 98 09/10/19 02:00 88 22 148/76 (100) 100 09/10/19 01:08 91 18 30 09/10/19 01:00 87 15 145/71 (95) 100 09/10/19 00:08 142/72 3/28/20 00:00 30 09/10/19 00:00 98.6 93 26 142/72 (95) 99 09/10/19 00:00 Mechanical Ventilator Mechanical Ventilator Mechanical Ventilator Mechanical Ventilator 09/10/19 00:00 92 09/09/19 23:06 86 18 100 30 88 20 30 09/09/19 23:00 84 19 158/64 (95) 99 09/09/19 22:00 87 19 139/73 (95) 100 09/09/19 21:01 90 21 30 09/09/19 21:00 92 21 124/75 (91) 100 09/09/19 20:00 30 09/09/19 20:00 89 09/09/19 20:00 97.9 90 24 154/71 (98) 100 09/09/19 20:00 Mechanical Ventilator Mechanical Ventilator Mechanical Ventilator Mechanical Ventilator 09/09/19 19:07 81 24 100 30 82 20 30 09/09/19 19:00 79 16 151/86 (107) 100 09/09/19 18:00 81 21 146/103 (117) 99 09/09/19 17:16 88 150/77 09/09/19 17:16 150/77 09/09/19 17:00 81 20 150/77 (101) 99 09/09/19 16:59 83 21 30 09/09/19 16:00 84 09/09/19 16:00 30 09/09/19 16:00 Mechanical Ventilator Mechanical Ventilator Mechanical Ventilator Mechanical Ventilator 09/09/19 16:00 98.7 83 18 169/77 (107) 100 09/09/19 15:00 85 18 156/95 (115) 100 09/09/19 14:35 80 18 100 Mechanical Ventilator 30 82 18 30 I&O Intake and Output 09/09/19 09/10/19 19:00 07:00 Intake Total 750.000 ml 335 ml Output Total 310 ml 135 ml Balance 440.000 ml 200 ml Intake Free Water 50 ml IV Total 280.000 ml Tube Feeding 420 ml 335 ml Output Urine Total 310 ml 135 ml # Bowel Movements 2 1 Dressing: dry Wound: clean Cardiovascular: RSR Respiratory: clear Abdomen: soft, non-tender, present bowel sounds Extremities: no edema, no cyanosis Laboratory Tests Test 09/10/19 03:50 White Blood Count 12.4 K/UL (4.8-10.8) H Red Blood Count 3.33 M/UL (4.20-5.40) L Hemoglobin 10.0 G/DL (12.0-16.0) L Hematocrit 29.5 % (37.0-47.0) L Mean Corpuscular Volume 89 FL (80-99) Mean Corpuscular Hemoglobin 30.1 PG (27.0-31.0) Mean Corpuscular Hemoglobin Concent 33.9 G/DL (32.0-36.0) Red Cell Distribution Width 14.8 % (11.6-14.8) Platelet Count 327 K/UL (150-450) Mean Platelet Volume 4.4 FL (6.5-10.1) L Neutrophils (%) (Auto) 76.7 % (45.0-75.0) H Lymphocytes (%) (Auto) 18.3 % (20.0-45.0) L Monocytes (%) (Auto) 4.3 % (1.0-10.0) Eosinophils (%) (Auto) 0.4 % (0.0-3.0) Basophils (%) (Auto) 0.5 % (0.0-2.0) Sodium Level 141 MMOL/L (136-145) Potassium Level 2.9 MMOL/L (3.5-5.1) L Chloride Level 103 MMOL/L (98-107) Carbon Dioxide Level 31 MMOL/L (21-32) Anion Gap 7 mmol/L (5-15) Blood Urea Nitrogen 41 mg/dL (7-18) H Creatinine 3.1 MG/DL (0.55-1.30) H Estimat Glomerular Filtration Rate 14.5 mL/min (>60) Glucose Level 153 MG/DL (74-106) H Calcium Level 9.1 MG/DL (8.5-10.1) Phosphorus Level 2.4 MG/DL (2.5-4.9) L Magnesium Level 2.0 MG/DL (1.8-2.4) Total Bilirubin 0.7 MG/DL (0.2-1.0) Aspartate Amino Transf (AST/SGOT) 30 U/L (15-37) Alanine Aminotransferase (ALT/SGPT) 7 U/L (12-78) L Alkaline Phosphatase 148 U/L (46-116) H C-Reactive Protein, Quantitative 25.4 mg/dL (0.00-0.90) H Pro-B-Type Natriuretic Peptide > 56654 pg/mL (0-125) H Total Protein 7.0 G/DL (6.4-8.2) Albumin 2.4 G/DL (3.4-5.0) L Globulin 4.6 g/dL Albumin/Globulin Ratio 0.5 (1.0-2.7) L Assessment Post-op Diagnosis same Plan Problems: (1) Malnutrition Assessment & Plan: DAILY ESTIMATED NEEDS: Needs based on ESRD+ HD, underweight, wound/ 39.5kg 35-40 kcals/kg 8646-8170 total kcals 1.25-1.8 g protein/kg 49-71 g total protein 20-22 mL/kg 790-869 total fluid mLs NUTRITION DIAGNOSIS: * Increased kcal and protein needs r/t underweight status, HD needs, wuond healing as evidenced by pt is underweight per guidelines, ESRD, on HD, admitted non-blanching erythema wounds @ BL heels and sacrum * Swallowing difficulty R/T dysphagia as evidenced by REACTOR SERVICE OPERATOR recommends temporary nonoral feeding at this time, s/p NGT insertion, on NGT feeding-> now s/p self removal, NPO. CURRENT TF:NPO PO DIET RECOMMENDATIONS: WHEN SAFE FOR ORAL DIET -> renal/ texture per REACTOR SERVICE OPERATOR ENTERAL NUTRITION RECOMMENDATIONS: W/ GI access: Nepro @ 35ml/hr x 22 hrs to provide 770ml, 1386kcal, 62g prot, 560ml free water * W/ GI access, resume TF on Nepro * Initiate Nepro @ 15ml/hr x 6 hrs, advance 10ml q 4-6 hrs as tolerated to goal rate. * Hold 1 hour before and after Synthroid med * HOB over 30 degrees/ water flush per MD. ADDITIONAL RECOMMENDATIONS: 1) Calibrated bed scale wt for accurate CBW -> daily wt monitoring Per HD record: dry wt on 07/30=39.5kg (87lbs) 2) Wound care: (W/ GI access) add Nephorivte x 1 + Balta BID 3) Monitor NPO status: without GI access at this time, s/p pulling out NGT 4) Monitor for hypoglycemia while NPO 5) Monitor for continuity of HD (2) Septic arthritis Assessment & Plan: Pt presented on admission with generalized scaly rash . pt noted to be restless and scratching at skin. Bleeding from oral mucosa noted. Joint deformity noted to R shoulder. Surgical incision approximated with 11 sutures. Erythema but no exudate,or elevation in skin temp at site of incision. Historical incision R hip that is tunneled.Small amt seropurulent exudate noted. Periwound is erythematous,but no elevation in skin temp noted. No odor noted. Non-blanching erythema noted to sacrum. Perianal area is erythematous and excoriated. L heel is boggy with non-blanching erythema. R heel is soft with non-blanching erythema. No evidence of skin breakdown to all other bony prominences. Tx.plan: Cover R shoulder with Drsg and change daily and prn. Cleanse R hip wound with Saline. Apply Therahoney.Apply Cavilon Skin Barrier periwound. Cover with Optifoam drsg. Change every 3 days and prn. Apply Moisture Barrier Paste to perianal area and buttocks. Cover Sacrum with Optifoam drsg. Change every 3 days and prn. Apply Cavilon Skin Barrier to both heels. Cover each heel with Optifoam drsg. Change every 7 days and prn. APM/ELVIA Mattress overlay. Reposition at least every 2hours or as tolerated. Off-load heels with pillow. HD cath necessary HD as renal likely will need intubation (3) Wound, open, hip or thigh with complication Assessment & Plan: slow healing will need nutritional optimization difficult ng tube peg when stable sutures removed from right shoulder comfortable wean vent may need trach (4) Abscess of right hip (5) possible septic arthritis (6) Renal failure (ARF), acute on chronic Assessment & Plan: cont HD will need tunneled cath placement okay to use fem line for now but will need change soon. line monitored and clean dressings going well (7) Pneumonia Assessment & Plan: intubated on vent support not tolerating weaning may need trach hemothorax likely after thoracentesis Chest CT noted Left chest tube placed With plan for trach chest tube can be considered but overall prognosis is very poor s/p trach left chest tub eout cxr noted and okay downgrade Camilo James Sep 10, 2019 14:19
--- NOTE | 2019-09-10 17:40 | General Progress Note ---
Assessment/Plan Status: stable, not improved, unchanged, deteriorating Assessment/Plan: Assessment - Severe ulcerative esophagitis - Resp failure - s/p recent Chest tube - thrombocytopenia --> resolved - Renal failure - aspiration risk --> s/p PEG - anemia - bradycardia - Poor prognosis Recommendations - GT care - water flushes - elevate HOB - monitor H&H - vent Subjective Allergies: Coded Allergies: VANCOMYCIN (Unverified Allergy, Unknown, 08/02/19) Subjective Above noted No events overnight d/w RN now out of ICU Objective Last 24 Hour Vital Signs Date Time Temp Pulse Resp B/P (MAP) Pulse Ox O2 Delivery O2 Flow Rate FiO2 09/10/19 17:07 70 18 100 Mechanical Ventilator 30 80 18 30 09/10/19 16:00 83 17 146/67 (93) 100 09/10/19 16:00 83 09/10/19 16:00 Mechanical Ventilator Mechanical Ventilator Mechanical Ventilator Mechanical Ventilator 09/10/19 16:00 30 09/10/19 15:02 74 19 100 Mechanical Ventilator 30 80 18 30 09/10/19 15:00 71 17 146/69 (94) 100 09/10/19 14:00 72 16 141/64 (89) 100 09/10/19 13:14 72 18 30 09/10/19 13:00 76 13 136/63 (87) 100 09/10/19 12:38 145/58 09/10/19 12:08 97.9 80 22 145/58 (87) 100 09/10/19 12:00 30 09/10/19 12:00 Mechanical Ventilator Mechanical Ventilator Mechanical Ventilator Mechanical Ventilator 09/10/19 11:12 74 18 100 Mechanical Ventilator 30 80 18 30 09/10/19 11:12 73 09/10/19 11:00 74 14 143/66 (91) 100 09/10/19 10:03 76 18 139/62 (87) 100 09/10/19 09:21 79 18 30 09/10/19 09:00 80 12 145/67 (93) 100 09/10/19 08:49 85 148/62 09/10/19 08:00 Mechanical Ventilator Mechanical Ventilator Mechanical Ventilator Mechanical Ventilator 09/10/19 08:00 30 09/10/19 08:00 98.0 85 17 148/62 (90) 100 09/10/19 07:48 84 09/10/19 07:24 78 18 100 Mechanical Ventilator 30 81 18 30 09/10/19 07:00 78 18 130/67 (88) 100 09/10/19 06:05 146/92 09/10/19 06:00 97 24 146/92 (110) 100 09/10/19 05:00 93 19 147/68 (94) 100 09/10/19 04:39 88 18 30 09/10/19 04:00 Mechanical Ventilator Mechanical Ventilator Mechanical Ventilator Mechanical Ventilator 09/10/19 04:00 30 09/10/19 04:00 98.8 86 18 147/66 (93) 100 09/10/19 04:00 99 09/10/19 03:13 93 20 100 30 94 20 30 09/10/19 03:00 91 18 143/76 (98) 98 09/10/19 02:00 88 22 148/76 (100) 100 09/10/19 01:08 91 18 30 09/10/19 01:00 87 15 145/71 (95) 100 09/10/19 00:08 142/72 09/10/19 00:00 30 09/10/19 00:00 98.6 93 26 142/72 (95) 99 09/10/19 00:00 Mechanical Ventilator Mechanical Ventilator Mechanical Ventilator Mechanical Ventilator 09/10/19 00:00 92 09/09/19 23:06 86 18 100 30 88 20 30 09/09/19 23:00 84 19 158/64 (95) 99 09/09/19 22:00 87 19 139/73 (95) 100 09/09/19 21:01 90 21 30 09/09/19 21:00 92 21 124/75 (91) 100 09/09/19 20:00 30 09/09/19 20:00 89 09/09/19 20:00 97.9 90 24 154/71 (98) 100 09/09/19 20:00 Mechanical Ventilator Mechanical Ventilator Mechanical Ventilator Mechanical Ventilator 09/09/19 19:07 81 24 100 30 82 20 30 09/09/19 19:00 79 16 151/86 (107) 100 09/09/19 18:00 81 21 146/103 (117) 99 Intake and Output 09/09/19 09/10/19 19:00 07:00 Intake Total 750.000 ml 335 ml Output Total 310 ml 135 ml Balance 440.000 ml 200 ml Intake Free Water 50 ml IV Total 280.000 ml Tube Feeding 420 ml 335 ml Output Urine Total 310 ml 135 ml # Bowel Movements 2 1 Laboratory Tests 09/10/19 03:50: White Blood Count 12.4H, Red Blood Count 3.33L, Hemoglobin 10.0L, Hematocrit 29.5L, Mean Corpuscular Volume 89, Mean Corpuscular Hemoglobin 30.1, Mean Corpuscular Hemoglobin Concent 33.9, Red Cell Distribution Width 14.8, Platelet Count 327, Mean Platelet Volume 4.4L, Neutrophils (%) (Auto) 76.7H, Lymphocytes (%) (Auto) 18.3L, Monocytes (%) (Auto) 4.3, Eosinophils (%) (Auto) 0.4, Basophils (%) (Auto) 0.5, Sodium Level 141, Potassium Level 2.9L, Chloride Level 103, Carbon Dioxide Level 31, Anion Gap 7, Blood Urea Nitrogen 41H, Creatinine 3.1H, Estimat Glomerular Filtration Rate 14.5, Glucose Level 153H, Calcium Level 9.1, Phosphorus Level 2.4L, Magnesium Level 2.0, Total Bilirubin 0.7, Aspartate Amino Transf (AST/SGOT) 30, Alanine Aminotransferase (ALT/SGPT) 7L, Alkaline Phosphatase 148H, C-Reactive Protein, Quantitative 25.4H, Pro-B- Type Natriuretic Peptide > 70399S, Total Protein 7.0, Albumin 2.4L, Globulin 4.6 , Albumin/Globulin Ratio 0.5L Height (Feet): 5 Height (Inches): 4.00 Weight (Pounds): 112 Objective Debilitated frail woman NCAT (+) on vent supple, (+) trach scattered ronchi RR abd soft ND NT, (+) GT no edema Cristy Elizondo MD Sep 10, 2019 17:40
[2019-09-10] MEDS: Dyna-Hex 2% Top Sol 2oz TOPIC SCH (20:38)
[2019-09-11] VITALS (7 sets, daily range): BP systolic 124–162; BP diastolic 60–78
[2019-09-11] MEDS: HydrALAZINE 25mg tab NG SCH ×4 (00:26→17:09)
[2019-09-11 04:53] LABS: BASOPHILS % (AUTO) 0.4 % (0.0-2.0); HEMATOCRIT 30.4 % (37.0-47.0); HEMOGLOBIN 10.3 G/DL (12.0-16.0); LYMPHOCYTES % (AUTO) 17.5 % (20.0-45.0); MEAN CORPUSCULAR VOLUME 89 FL (80-99); MONOCYTES % (AUTO) 3.8 % (1.0-10.0); NEUTROPHILS % (AUTO) 77.3 % (45.0-75.0); PLATELET COUNT 344 K/UL (150-450); RED BLOOD COUNT 3.41 M/UL (4.20-5.40); RED CELL DISTRIBUTION WIDTH 15.4 % (11.6-14.8); WHITE BLOOD COUNT 10.7 K/UL (4.8-10.8)
--- NOTE | 2019-09-11 05:30 | Progress Note ---
DATE: 09/10/2019 CARDIOLOGY PROGRESS NOTE SUBJECTIVE: The patient remains on ventilator support, status post tracheostomy, status post removal of chest tube for hemothorax and drainage. The patient is alert, monitored rhythm sinus, rare atrial ectopics. PHYSICAL EXAMINATION: VITAL SIGNS: Blood pressure 143/66, pulse 74, and respiratory rate 14. LUNGS: Good breath sounds. Rhonchi at the right, thin trach secretions. No bleeding. CARDIAC: Regular rhythm and rate. Normal S1, S2. ABDOMEN: Soft. GJ tube intact. EXTREMITIES: Trace dependent edema. Moves all extremities. LABORATORY DATA: White count 12.4, hemoglobin 10. Potassium 2.9, BUN 41, creatinine 3.1, and phosphorus 3.4. Pro-natriuretic peptide is over 30,000. IMPRESSION: 1. Respiratory failure, tracheostomy, status post pneumothorax with drainage. 2. End-stage renal disease. 3. Hypokalemia. 4. Hypophosphatemia. 5. Anemia due to chronic kidney disease. 6. Acute on chronic diastolic congestive heart failure. 7. Hypertensive heart disease with controlled blood pressure. 8. Hypothyroidism, on replacement therapy. 9. Recovered bradycardia. PLAN: 1. Weaning efforts. 2. Trach care. 3. Antimicrobials. 4. Hemodialysis with ultrafiltration for volume management. 5. Titrate antihypertensives. 6. Adjust dialysate for correction of electrolytes and low phosphorus. Abel Stubbs M.D. DR: Layton JOB#: [id number] CC:
[2019-09-11 05:34] LABS: ALANINE AMINOTRANSFERASE 11 U/L (12-78); ALBUMIN 2.3 G/DL (3.4-5.0); ALBUMIN/GLOBULIN RATIO 0.5 (1.0-2.7); ALKALINE PHOSPHATASE 163 U/L (46-116); ANION GAP 7 mmol/L (5-15); ASPARTATE AMINO TRANSFERASE 36 U/L (15-37); BILIRUBIN,TOTAL 0.6 MG/DL (0.2-1.0); BLOOD UREA NITROGEN 49 mg/dL (7-18); CALCIUM 8.8 MG/DL (8.5-10.1); CARBON DIOXIDE 31 MMOL/L (21-32); CHLORIDE 104 MMOL/L (98-107); CREATININE 3.3 MG/DL (0.55-1.30); PHOSPHORUS 3.8 MG/DL (2.5-4.9); POTASSIUM 3.5 MMOL/L (3.5-5.1); SODIUM 142 MMOL/L (136-145)
--- NOTE | 2019-09-11 09:48 | General Progress Note ---
Assessment/Plan Problem List: (1) Hypothyroid ICD Codes: E03.9 - Hypothyroidism, unspecified SNOMED: 75434107 (2) ESRD (end stage renal disease) on dialysis ICD Codes: N18.6 - End stage renal disease; Z99.2 - Dependence on renal dialysis SNOMED: 950112923 (3) Hypotension ICD Codes: I95.9 - Hypotension, unspecified SNOMED: 75751856 Qualifiers: Qualified Codes: I95.3 - Hypotension of hemodialysis (4) Pneumonia ICD Codes: J18.9 - Pneumonia, unspecified organism SNOMED: 878874935 Qualifiers: Qualified Codes: J18.9 - Pneumonia, unspecified organism (5) Diabetes mellitus ICD Codes: E11.9 - Type 2 diabetes mellitus without complications SNOMED: 53935758 Status: stable, not improved, unchanged, deteriorating Assessment/Plan: repeat TSH, free T4 with am labs tomorrow continue Levothyroxine IV 50 mcg daily continue glucose monitoring without insulin coverage hypoglycemia protocol in order Subjective ROS Limited/Unobtainable: Yes Allergies: Coded Allergies: VANCOMYCIN (Unverified Allergy, Unknown, 08/02/19) Subjective events noted interval notes reviewed transferred out of ICU glucose values are stable Item Value Date Time Bedside Blood Glucose 110 mg/dl 09/11/19 0600 Bedside Blood Glucose 130 mg/dl H 09/11/19 0000 Bedside Blood Glucose 122 mg/dl H 09/10/19 1800 Bedside Blood Glucose 151 mg/dl H 09/10/19 1200 Objective Last 24 Hour Vital Signs Date Time Temp Pulse Resp B/P (MAP) Pulse Ox O2 Delivery O2 Flow Rate FiO2 09/11/19 09:05 74 18 30 09/11/19 08:42 76 142/78 09/11/19 08:00 30 09/11/19 08:00 Mechanical Ventilator Mechanical Ventilator Mechanical Ventilator Mechanical Ventilator 09/11/19 07:40 97.8 76 20 142/78 (99) 100 09/11/19 07:39 74 09/11/19 07:10 93 18 30 09/11/19 05:57 162/76 09/11/19 05:05 78 20 30 09/11/19 04:00 30 09/11/19 04:00 Mechanical Ventilator Mechanical Ventilator Mechanical Ventilator Mechanical Ventilator 09/11/19 04:00 78 09/11/19 04:00 97.7 78 20 162/76 (104) 98 09/11/19 02:44 71 18 30 09/11/19 01:11 74 20 30 09/11/19 00:26 152/75 09/11/19 00:00 Mechanical Ventilator Mechanical Ventilator Mechanical Ventilator Mechanical Ventilator 09/11/19 00:00 30 09/11/19 00:00 97.3 80 18 152/75 (100) 99 09/11/19 00:00 82 09/10/19 23:45 72 18 100 Mechanical Ventilator 40 09/10/19 22:44 80 18 100 Mechanical Ventilator 30 82 18 30 09/10/19 20:32 72 18 30 09/10/19 20:00 Mechanical Ventilator Mechanical Ventilator Mechanical Ventilator Mechanical Ventilator 09/10/19 20:00 30 09/10/19 20:00 97.7 73 18 142/76 (98) 99 09/10/19 20:00 73 09/10/19 18:59 81 19 100 Mechanical Ventilator 30 77 18 30 09/10/19 18:48 82 148/78 09/10/19 18:48 148/78 09/10/19 18:46 82 148/78 (101) 09/10/19 17:07 70 18 100 Mechanical Ventilator 30 80 18 30 09/10/19 16:00 83 17 146/67 (93) 100 09/10/19 16:00 83 09/10/19 16:00 Mechanical Ventilator Mechanical Ventilator Mechanical Ventilator Mechanical Ventilator 09/10/19 16:00 30 09/10/19 15:02 74 19 100 Mechanical Ventilator 30 80 18 30 09/10/19 15:00 71 17 146/69 (94) 100 09/10/19 14:00 72 16 141/64 (89) 100 09/10/19 13:14 72 18 30 09/10/19 13:00 76 13 136/63 (87) 100 09/10/19 12:38 145/58 09/10/19 12:08 97.9 80 22 145/58 (87) 100 09/10/19 12:00 30 09/10/19 12:00 Mechanical Ventilator Mechanical Ventilator Mechanical Ventilator Mechanical Ventilator 09/10/19 11:12 74 18 100 Mechanical Ventilator 30 80 18 30 09/10/19 11:12 73 09/10/19 11:00 74 14 143/66 (91) 100 09/10/19 10:03 76 18 139/62 (87) 100 Intake and Output 09/10/19 09/11/19 19:00 07:00 Intake Total 520 ml 450 ml Output Total 65 ml 300 ml Balance 455 ml 150 ml Intake Free Water 100 ml 100 ml Tube Feeding 420 ml 350 ml Output Urine Total 65 ml 300 ml # Bowel Movements 1 2 Laboratory Tests 09/11/19 03:39: White Blood Count 10.7, Red Blood Count 3.41L, Hemoglobin 10.3L, Hematocrit 30.4L, Mean Corpuscular Volume 89, Mean Corpuscular Hemoglobin 30.1, Mean Corpuscular Hemoglobin Concent 33.8, Red Cell Distribution Width 15.4H, Platelet Count 344, Mean Platelet Volume 4.7L, Neutrophils (%) (Auto) 77.3H, Lymphocytes (%) (Auto) 17.5L, Monocytes (%) (Auto) 3.8, Eosinophils (%) (Auto) 1.0, Basophils (%) (Auto) 0.4, Sodium Level 142, Potassium Level 3.5, Chloride Level 104, Carbon Dioxide Level 31, Anion Gap 7, Blood Urea Nitrogen 49H, Creatinine 3.3H, Estimat Glomerular Filtration Rate 13.5, Glucose Level 137H, Calcium Level 8.8, Phosphorus Level 3.8, Magnesium Level 2.0, Total Bilirubin 0.6, Aspartate Amino Transf (AST/SGOT) 36, Alanine Aminotransferase (ALT/SGPT) 11L, Alkaline Phosphatase 163H, C-Reactive Protein, Quantitative 34.2H, Pro-B- Type Natriuretic Peptide > 90070N, Total Protein 7.1, Albumin 2.3L, Globulin 4.8 , Albumin/Globulin Ratio 0.5L Height (Feet): 5 Height (Inches): 4.00 Weight (Pounds): 112 General Appearance: no apparent distress Neck: normal alignment Cardiovascular: normal rate Respiratory/Chest: decreased breath sounds Objective Current Medications Medications (Trade) Dose Ordered Sig/Javier Route PRN Reason Start Time Stop Time Status Last Admin Dose Admin Acetaminophen (Tylenol) 650 mg Q4H PRN GT Mild Pain/Temp > 100.5 09/03/19 07:00 10/03/19 06:59 09/09/19 06:13 Acetylcysteine (Mucomyst) 100 mg Q4HRT HHN 08/31/19 19:00 11/29/19 18:59 09/10/19 22:44 Albuterol/ Ipratropium (Albuterol/ Ipratropium) 3 ml Q4HRT HHN 09/11/19 11:00 09/16/19 10:59 Amlodipine Besylate (Norvasc) 5 mg BID NG 08/23/19 01:45 09/22/19 01:44 09/11/19 08:42 Atropine Sulfate (Atropine) 1 mg Q4H PRN IVP Per rx protocol 08/13/19 08:30 09/12/19 08:29 Chlorhexidine Gluconate (Nae-Hex 2%) 1 applic DAILY@2000 TOPIC 08/15/19 20:00 09/14/19 19:59 09/10/19 20:38 Dextrose (Dextrose 50%) 25 ml Q30M PRN IV Hypoglycemia 09/02/19 06:15 12/01/19 06:14 09/04/19 12:11 Dextrose (Dextrose 50%) 50 ml Q30M PRN IV Hypoglycemia 09/02/19 06:15 12/01/19 06:14 Epoetin Thomas (Epoetin Thomas(ESRD on dialysis)) 4,000 unit THU-THU-THU SUBQ 08/12/19 21:00 09/11/19 20:59 09/09/19 20:33 Hydralazine HCl (Apresoline) 10 mg Q4H PRN IV For High Blood Pressure 08/18/19 12:44 09/17/19 12:43 09/01/19 20:27 Hydralazine HCl (Apresoline) 25 mg Q6HR NG 08/23/19 06:00 09/22/19 05:59 09/11/19 05:57 Lansoprazole (Prevacid) 30 mg BID GT 08/19/19 09:00 09/18/19 08:59 09/11/19 08:42 Levothyroxine Sodium (Synthroid) 50 mcg DAILY@0630 ORAL 08/25/19 06:30 09/24/19 06:29 09/11/19 05:45 Midazolam HCl 100 ml @ 0 mls/hr Q24H PRN IV Agitation 09/05/19 18:15 09/12/19 18:14 Antonio Jacome MD Sep 11, 2019 09:48
--- NOTE | 2019-09-11 10:29 | Critical Care Progress Note ---
Assessment/Plan Assessment/Plan respiratory failure hemoptysis resolved hypoxemia chronic renal failure toxic met encephalopathy severe protein calorie malnutrition cachexia left lung whiteout/collapse, improved with intubation s/p intubation anemia ? blood loss pulmonary edema with elevated BNP + pleural effusion ? hemothorax s/p CT placement and removal s/p trach PLAN trach care monitor for bleeding monitor effusion care noted and reviewed monitor ins and outs reviewed care and continue to monitor unable to wean off vent at present prognosis poor overall keep negative and monitor osmotic pressures nontoxic close follow up discussed elevated head and monitor ROM watch fluid status and keep negative nutrition and monitor residuals isolation as needed off load as able and monitor skin exam ROM as able and monitor contractures ICU care and management critical at present requires ICU management and close follow up care feeds as able and monitor residuals medications/laboratory data/nursing notes/ICU care reviewed in detail note reviewed and edited care discussed with RN and RT ICU time spent >40 minutes coordinating care Critical Care - Subjective ROS Limited/Unobtainable: Yes Condition: critical EKG Rhythm: Sinus Rhythm Residuals: minimal Tube Feeding Tolerated: yes I&O: Intake and Output 09/10/19 09/11/19 19:00 07:00 Intake Total 520 ml 450 ml Output Total 65 ml 300 ml Balance 455 ml 150 ml Intake Free Water 100 ml 100 ml Tube Feeding 420 ml 350 ml Output Urine Total 65 ml 300 ml # Bowel Movements 1 2 Critical Care - Objective ET-Tube: 7.0 ET Position: 19 Last 24 Hour Vital Signs Date Time Temp Pulse Resp B/P (MAP) Pulse Ox O2 Delivery O2 Flow Rate FiO2 09/11/19 09:05 74 18 30 09/11/19 08:42 76 142/78 09/11/19 08:00 30 09/11/19 08:00 Mechanical Ventilator Mechanical Ventilator Mechanical Ventilator Mechanical Ventilator 09/11/19 07:40 97.8 76 20 142/78 (99) 100 09/11/19 07:39 74 09/11/19 07:10 93 18 30 09/11/19 05:57 162/76 09/11/19 05:05 78 20 30 09/11/19 04:00 30 09/11/19 04:00 Mechanical Ventilator Mechanical Ventilator Mechanical Ventilator Mechanical Ventilator 09/11/19 04:00 78 09/11/19 04:00 97.7 78 20 162/76 (104) 98 09/11/19 02:44 71 18 30 09/11/19 01:11 74 20 30 09/11/19 00:26 152/75 09/11/19 00:00 Mechanical Ventilator Mechanical Ventilator Mechanical Ventilator Mechanical Ventilator 09/11/19 00:00 30 09/11/19 00:00 97.3 80 18 152/75 (100) 99 09/11/19 00:00 82 09/10/19 23:45 72 18 100 Mechanical Ventilator 40 09/10/19 22:44 80 18 100 Mechanical Ventilator 30 82 18 30 09/10/19 20:32 72 18 30 09/10/19 20:00 Mechanical Ventilator Mechanical Ventilator Mechanical Ventilator Mechanical Ventilator 09/10/19 20:00 30 09/10/19 20:00 97.7 73 18 142/76 (98) 99 09/10/19 20:00 73 09/10/19 18:59 81 19 100 Mechanical Ventilator 30 77 18 30 09/10/19 18:48 82 148/78 09/10/19 18:48 148/78 09/10/19 18:46 82 148/78 (101) 09/10/19 17:07 70 18 100 Mechanical Ventilator 30 80 18 30 09/10/19 16:00 83 17 146/67 (93) 100 09/10/19 16:00 83 09/10/19 16:00 Mechanical Ventilator Mechanical Ventilator Mechanical Ventilator Mechanical Ventilator 09/10/19 16:00 30 09/10/19 15:02 74 19 100 Mechanical Ventilator 30 80 18 30 09/10/19 15:00 71 17 146/69 (94) 100 09/10/19 14:00 72 16 141/64 (89) 100 09/10/19 13:14 72 18 30 09/10/19 13:00 76 13 136/63 (87) 100 09/10/19 12:38 145/58 09/10/19 12:08 97.9 80 22 145/58 (87) 100 09/10/19 12:00 30 09/10/19 12:00 Mechanical Ventilator Mechanical Ventilator Mechanical Ventilator Mechanical Ventilator 09/10/19 11:12 74 18 100 Mechanical Ventilator 30 80 18 30 09/10/19 11:12 73 09/10/19 11:00 74 14 143/66 (91) 100 Labs: Labs Test 09/09/19 03:35 09/10/19 03:50 3/29/20 03:39 09/11/19 06:18 White Blood Count 9.2 K/UL (4.8-10.8) 12.4 K/UL (4.8-10.8) 10.7 K/UL (4.8-10.8) Red Blood Count 3.50 M/UL (4.20-5.40) 3.33 M/UL (4.20-5.40) 3.41 M/UL (4.20-5.40) Hemoglobin 10.4 G/DL (12.0-16.0) 10.0 G/DL (12.0-16.0) 10.3 G/DL (12.0-16.0) Hematocrit 31.4 % (37.0-47.0) 29.5 % (37.0-47.0) 30.4 % (37.0-47.0) Mean Corpuscular Volume 90 FL (80-99) 89 FL (80-99) 89 FL (80-99) Mean Corpuscular Hemoglobin 29.6 PG (27.0-31.0) 30.1 PG (27.0-31.0) 30.1 PG (27.0-31.0) Mean Corpuscular Hemoglobin Concent 33.1 G/DL (32.0-36.0) 33.9 G/DL (32.0-36.0) 33.8 G/DL (32.0-36.0) Red Cell Distribution Width 14.8 % (11.6-14.8) 14.8 % (11.6-14.8) 15.4 % (11.6-14.8) Platelet Count 252 K/UL (150-450) 327 K/UL (150-450) 344 K/UL (150-450) Mean Platelet Volume 4.4 FL (6.5-10.1) 4.4 FL (6.5-10.1) 4.7 FL (6.5-10.1) Neutrophils (%) (Auto) 65.1 % (45.0-75.0) 76.7 % (45.0-75.0) 77.3 % (45.0-75.0) Lymphocytes (%) (Auto) 26.6 % (20.0-45.0) 18.3 % (20.0-45.0) 17.5 % (20.0-45.0) Monocytes (%) (Auto) 7.1 % (1.0-10.0) 4.3 % (1.0-10.0) 3.8 % (1.0-10.0) Eosinophils (%) (Auto) 0.7 % (0.0-3.0) 0.4 % (0.0-3.0) 1.0 % (0.0-3.0) Basophils (%) (Auto) 0.5 % (0.0-2.0) 0.5 % (0.0-2.0) 0.4 % (0.0-2.0) Sodium Level 141 MMOL/L (136-145) 141 MMOL/L (136-145) 142 MMOL/L (136-145) Potassium Level 3.6 MMOL/L (3.5-5.1) 2.9 MMOL/L (3.5-5.1) 3.5 MMOL/L (3.5-5.1) Chloride Level 105 MMOL/L (98-107) 103 MMOL/L (98-107) 104 MMOL/L (98-107) Carbon Dioxide Level 31 MMOL/L (21-32) 31 MMOL/L (21-32) 31 MMOL/L (21-32) Anion Gap 5 mmol/L (5-15) 7 mmol/L (5-15) 7 mmol/L (5-15) Blood Urea Nitrogen 35 mg/dL (7-18) 41 mg/dL (7-18) 49 mg/dL (7-18) Creatinine 2.6 MG/DL (0.55-1.30) 3.1 MG/DL (0.55-1.30) 3.3 MG/DL (0.55-1.30) Estimat Glomerular Filtration Rate 17.7 mL/min (>60) 14.5 mL/min (>60) 13.5 mL/min (>60) Glucose Level 103 MG/DL (74-106) 153 MG/DL (74-106) 137 MG/DL (74-106) Uric Acid 3.4 MG/DL (2.6-7.2) Calcium Level 9.1 MG/DL (8.5-10.1) 9.1 MG/DL (8.5-10.1) 8.8 MG/DL (8.5-10.1) Phosphorus Level 1.6 MG/DL (2.5-4.9) 2.4 MG/DL (2.5-4.9) 3.8 MG/DL (2.5-4.9) Magnesium Level 2.1 MG/DL (1.8-2.4) 2.0 MG/DL (1.8-2.4) 2.0 MG/DL (1.8-2.4) Total Bilirubin 0.6 MG/DL (0.2-1.0) 0.7 MG/DL (0.2-1.0) 0.6 MG/DL (0.2-1.0) Aspartate Amino Transf (AST/SGOT) 28 U/L (15-37) 30 U/L (15-37) 36 U/L (15-37) Alanine Aminotransferase (ALT/SGPT) 12 U/L (12-78) 7 U/L (12-78) 11 U/L (12-78) Alkaline Phosphatase 130 U/L (46-116) 148 U/L (46-116) 163 U/L (46-116) Total Creatine Kinase 84 U/L (26-308) C-Reactive Protein, Quantitative 18.8 mg/dL (0.00-0.90) 25.4 mg/dL (0.00-0.90) 34.2 mg/dL (0.00-0.90) Pro-B-Type Natriuretic Peptide > 87129 pg/mL (0-125) > 54839 pg/mL (0-125) > 46647 pg/mL (0-125) Total Protein 6.6 G/DL (6.4-8.2) 7.0 G/DL (6.4-8.2) 7.1 G/DL (6.4-8.2) Albumin 2.5 G/DL (3.4-5.0) 2.4 G/DL (3.4-5.0) 2.3 G/DL (3.4-5.0) Globulin 4.1 g/dL 4.6 g/dL 4.8 g/dL Albumin/Globulin Ratio 0.6 (1.0-2.7) 0.5 (1.0-2.7) 0.5 (1.0-2.7) Thyroid Stimulating Hormone (TSH) 2.434 uiU/mL (0.358-3.740) Free Thyroxine 1.36 NG/DL (0.76-1.46) Objective: WDWN NAD intubated now with trach reduced breath sounds scattered rhonchi; [id number] without MRG NABS nontender no HSM no CCE contractures feeding tube in place no distention reduced LOC and weak nonfocal cachectic reviewed and edited Accucheck: 110 Malcolm Cruz MD Sep 11, 2019 10:29
--- NOTE | 2019-09-11 10:33 | Nephrology Progress Note ---
Assessment/Plan Problem List: (1) ESRD (end stage renal disease) on dialysis (2) Malnutrition (3) Anemia in CKD (chronic kidney disease) (4) Hypotension (5) Thrombocytopenia (6) Sepsis Assessment: klebsiella in blood Assessment -Early sepsis with shock. -Healthcare-associated pneumonia. -Severe protein-calorie malnutrition. -Thrombocytopenia. - End-stage renal disease. - History of hypertension. - Bradycardia. - HypoThyroid Plan Tracheostomy September 07 Last dialysis September 07, next as needed Chest tube on the left side was put in on September 01 was discontinued September 07 Patient transfused 3 units of packed RBCs for low hemoglobin Remains full code Blood pressure fluctuating, will start hydralazine via NG tube for blood pressure Magnesium and potassium supplement intravenously as needed Patient underwent PEG placement August 16 patient remains intubated on ventilator Discussed with RN Aim to wean from ventilator or consider tracheostomy Permacath was removed on August 12 Dialysis 08/11 Transfusion as needed Patient had hematemesis meds IV as possible Surveillance blood cultures tomorrow Plan to put the permacath back in on Thursday if cultures are negative keep BP and BS in check Inflammatory markers per orders Subjective ROS Limited/Unobtainable: Yes Objective Objective Last 24 Hour Vital Signs Date Time Temp Pulse Resp B/P (MAP) Pulse Ox O2 Delivery O2 Flow Rate FiO2 09/11/19 09:05 74 18 30 09/11/19 08:42 76 142/78 09/11/19 08:00 30 09/11/19 08:00 Mechanical Ventilator Mechanical Ventilator Mechanical Ventilator Mechanical Ventilator 09/11/19 07:40 97.8 76 20 142/78 (99) 100 09/11/19 07:39 74 09/11/19 07:10 93 18 30 09/11/19 05:57 162/76 09/11/19 05:05 78 20 30 09/11/19 04:00 30 09/11/19 04:00 Mechanical Ventilator Mechanical Ventilator Mechanical Ventilator Mechanical Ventilator 09/11/19 04:00 78 09/11/19 04:00 97.7 78 20 162/76 (104) 98 09/11/19 02:44 71 18 30 09/11/19 01:11 74 20 30 09/11/19 00:26 152/75 09/11/19 00:00 Mechanical Ventilator Mechanical Ventilator Mechanical Ventilator Mechanical Ventilator 09/11/19 00:00 30 09/11/19 00:00 97.3 80 18 152/75 (100) 99 09/11/19 00:00 82 09/10/19 23:45 72 18 100 Mechanical Ventilator 40 09/10/19 22:44 80 18 100 Mechanical Ventilator 30 82 18 30 09/10/19 20:32 72 18 30 09/10/19 20:00 Mechanical Ventilator Mechanical Ventilator Mechanical Ventilator Mechanical Ventilator 09/10/19 20:00 30 09/10/19 20:00 97.7 73 18 142/76 (98) 99 09/10/19 20:00 73 09/10/19 18:59 81 19 100 Mechanical Ventilator 30 77 18 30 09/10/19 18:48 82 148/78 09/10/19 18:48 148/78 09/10/19 18:46 82 148/78 (101) 09/10/19 17:07 70 18 100 Mechanical Ventilator 30 80 18 30 09/10/19 16:00 83 17 146/67 (93) 100 09/10/19 16:00 83 09/10/19 16:00 Mechanical Ventilator Mechanical Ventilator Mechanical Ventilator Mechanical Ventilator 09/10/19 16:00 30 09/10/19 15:02 74 19 100 Mechanical Ventilator 30 80 18 30 09/10/19 15:00 71 17 146/69 (94) 100 09/10/19 14:00 72 16 141/64 (89) 100 09/10/19 13:14 72 18 30 09/10/19 13:00 76 13 136/63 (87) 100 09/10/19 12:38 145/58 09/10/19 12:08 97.9 80 22 145/58 (87) 100 09/10/19 12:00 30 09/10/19 12:00 Mechanical Ventilator Mechanical Ventilator Mechanical Ventilator Mechanical Ventilator 09/10/19 11:12 74 18 100 Mechanical Ventilator 30 80 18 30 09/10/19 11:12 73 09/10/19 11:00 74 14 143/66 (91) 100 Intake and Output 09/10/19 09/11/19 19:00 07:00 Intake Total 520 ml 450 ml Output Total 65 ml 300 ml Balance 455 ml 150 ml Intake Free Water 100 ml 100 ml Tube Feeding 420 ml 350 ml Output Urine Total 65 ml 300 ml # Bowel Movements 1 2 Laboratory Tests 09/11/19 03:39: White Blood Count 10.7, Red Blood Count 3.41L, Hemoglobin 10.3L, Hematocrit 30.4L, Mean Corpuscular Volume 89, Mean Corpuscular Hemoglobin 30.1, Mean Corpuscular Hemoglobin Concent 33.8, Red Cell Distribution Width 15.4H, Platelet Count 344, Mean Platelet Volume 4.7L, Neutrophils (%) (Auto) 77.3H, Lymphocytes (%) (Auto) 17.5L, Monocytes (%) (Auto) 3.8, Eosinophils (%) (Auto) 1.0, Basophils (%) (Auto) 0.4, Sodium Level 142, Potassium Level 3.5, Chloride Level 104, Carbon Dioxide Level 31, Anion Gap 7, Blood Urea Nitrogen 49H, Creatinine 3.3H, Estimat Glomerular Filtration Rate 13.5, Glucose Level 137H, Calcium Level 8.8, Phosphorus Level 3.8, Magnesium Level 2.0, Total Bilirubin 0.6, Aspartate Amino Transf (AST/SGOT) 36, Alanine Aminotransferase (ALT/SGPT) 11L, Alkaline Phosphatase 163H, C-Reactive Protein, Quantitative 34.2H, Pro-B- Type Natriuretic Peptide > 12649V, Total Protein 7.1, Albumin 2.3L, Globulin 4.8 , Albumin/Globulin Ratio 0.5L 09/11/19 06:18: Thyroid Stimulating Hormone (TSH) 2.434, Free Thyroxine 1.36 Height (Feet): 5 Height (Inches): 4.00 Weight (Pounds): 112 General Appearance: no apparent distress, lethargic EENT: other Cardiovascular: normal rate Respiratory/Chest: decreased breath sounds Abdomen: soft, other - GT feeding on Objective no change William Blackwood MD Sep 11, 2019 10:33
--- NOTE | 2019-09-11 10:38 | Hematology/Onc Progress Note ---
Assessment/Plan Assessment/Plan # Thrombocytopenia - potential causes multifactorial, evaluate liver and viral etiologies to begin, in this case due to sepsis with septic shock also with cirrhosis and liver disease --> Hep panel and HIV ordered -> neg --> US abd to evaluate for cirrhosis and hsm ordered --> reviewed --> Peripheral smear ordered to evaluate for blasts /schistocytes --> abx and other meds have been reviewed --> ok for ppx if plt >50k w/ either heparin or lovenox --> Transfuse if Plt < 20k and fever, or if Plt < 10k without fever --> okay for permacath change once plt better--> for 08/14 --> plt trend: 43-->83-->237k-->292-->341-->315-->388 -->444-->530-->252k-->344 # Anemia of chronic disease due to underlying chronic medical issues, multifactorial v Gi bleed --> Anemia workup has been ordered, rule out gi bleed --> No evidence of hemolysis is noted, peripheral smear has been reviewed. --> Hgb goal >7. Transfuse prn. --> Epogen has been started --> HOLD OFF IRON ferritin is >1000 --> Medications have been reviewed --> low threshold for gi evaluation in case has occult + --> hgb 9-->6.7-->9.2 -->10.5-->10.6 -->10.7-->10-->10.5-->9.8-->10.4-->9.5--> 3.6-->9.6-->9.7-->10-->10.3 --> blood tx: 08/11, 08/31 --> CT Chest pendig r/o hemothorax --> does show Confirmation of a large left hemothorax. Complete atelectasis of the left lower lobe and partial left upper lobe atelectasis demonstrated. Mild rightward shift of the heart and mediastinum. # Sepsis with shock. --> abx as per id, recs noted --> pressors as needed # Healthcare-associated pneumonia. --> recs reviewed --> abx: jung/micafungin-->jung --> 08/24 us chest: moderate left pleural effusion # Severe protein-calorie malnutrition. --> nutritional support # End-stage renal disease --> had as renal hd --> with permacath # History of hypertension. --> per cards, now with Bradycardia. # Resp failure s/p vent/trach # HypoThyroid # Ngt feedings # Dvt ppx scd's The timing of this note does not necessarily reflect the time of the patient was seen. Greatly appreciate consultation. Subjective Allergies: Coded Allergies: VANCOMYCIN (Unverified Allergy, Unknown, 08/02/19) Subjective 08/11: no bleeding or chills, labs reviewed, no major bleeding, plt less than 50k 08/12: icu, s/p blood, hgb improved to 9.2, 08/14: icu, pending consent for thora and permacath, labs reviewed 08/15: new permacath placed, no bleeding, for hd, plt much improved, started lovenox sq 08/16: ett to be adjusted, bp on high end, micafungin started, possible bronch 08/17: weaning as per pulm, no events otherwise, labs noted 08/18: no events no bleeding, remains confused on vent, for hd 08/20: icu, failed to wean, labs reviewed, jung 08/21: resting in bed, no overnight events, labs reviewed 08/22: awake, confused, restraints, no overnight events 08/23: no events, no bleeding, on ppi bid 08/24: icu, failed to wean, labs reviewed 08/25: no overnight events, us chest, restraints, afebrile 08/26 difficult in weaning, nad, seen by surg, pulm labs noted 08/27 awake on restraints, thoracentesis for am, labs reviewed 08/29 no bleeding, no night sweats, no major changes, on ppi bid 08/30 no major events, remains on vent, no bleeding, dw pcp 08/31 hgb dropped to 3.6, has been transfused with prbc, in icu, david Rn, ct chest pend 09/01 no major events, no bleeding, labs noted, hgb remains low, hgb 9.6 09/03 lethargic, left chest tube dry/intact, off abx, vent 09/04 remains on a vent, synthroid, labs reviewed 09/05 awake and alert, no acute events, hgb 9.8, no new orders 09/06 no bleeding or chills, labs noted, no major events overnight, dw rn 09/07 no events, no night sweats, no bleeding, no fc, remains agitated in the am 09/08 remains in the icu, trach was done, on vent, abx off, on epo 09/10 transferred to sdu, restraints, vent, labs reviewed Objective Objective Current Medications Medications (Trade) Dose Ordered Sig/Javier Route PRN Reason Start Time Stop Time Status Last Admin Dose Admin Acetaminophen (Tylenol) 650 mg Q4H PRN GT Mild Pain/Temp > 100.5 09/03/19 07:00 10/03/19 06:59 09/09/19 06:13 Acetylcysteine (Mucomyst) 100 mg Q4HRT N 08/31/19 19:00 11/29/19 18:59 09/10/19 22:44 Albuterol/ Ipratropium (Albuterol/ Ipratropium) 3 ml Q4HRT N 09/11/19 11:00 09/16/19 10:59 Amlodipine Besylate (Norvasc) 5 mg BID NG 08/23/19 01:45 09/22/19 01:44 09/11/19 08:42 Atropine Sulfate (Atropine) 1 mg Q4H PRN IVP Per rx protocol 08/13/19 08:30 09/12/19 08:29 Chlorhexidine Gluconate (Nae-Hex 2%) 1 applic DAILY@1999 TOPIC 08/15/19 20:00 09/14/19 19:59 09/10/19 20:38 Dextrose (Dextrose 50%) 25 ml Q30M PRN IV Hypoglycemia 09/02/19 06:15 12/01/19 06:14 09/04/19 12:11 Dextrose (Dextrose 50%) 50 ml Q30M PRN IV Hypoglycemia 09/02/19 06:15 12/01/19 06:14 Epoetin Thomas (Epoetin Thomas(ESRD on dialysis)) 4,000 unit THU-WED-THU SUBQ 08/12/19 21:00 09/11/19 20:59 09/09/19 20:33 Hydralazine HCl (Apresoline) 10 mg Q4H PRN IV For High Blood Pressure 08/18/19 12:44 09/17/19 12:43 09/01/19 20:27 Hydralazine HCl (Apresoline) 25 mg Q6HR NG 08/23/19 06:00 09/22/19 05:59 09/11/19 05:57 Lansoprazole (Prevacid) 30 mg BID GT 08/19/19 09:00 09/18/19 08:59 09/11/19 08:42 Levothyroxine Sodium (Synthroid) 50 mcg DAILY@0630 ORAL 08/25/19 06:30 09/24/19 06:29 09/11/19 05:45 Midazolam HCl 100 ml @ 0 mls/hr Q24H PRN IV Agitation 09/05/19 18:15 09/12/19 18:14 Last 24 Hour Vital Signs Date Time Temp Pulse Resp B/P (MAP) Pulse Ox O2 Delivery O2 Flow Rate FiO2 09/11/19 09:05 74 18 30 09/11/19 08:42 76 142/78 09/11/19 08:00 30 09/11/19 08:00 Mechanical Ventilator Mechanical Ventilator Mechanical Ventilator Mechanical Ventilator 09/11/19 07:40 97.8 76 20 142/78 (99) 100 09/11/19 07:39 74 09/11/19 07:10 93 18 30 09/11/19 05:57 162/76 09/11/19 05:05 78 20 30 09/11/19 04:00 30 09/11/19 04:00 Mechanical Ventilator Mechanical Ventilator Mechanical Ventilator Mechanical Ventilator 09/11/19 04:00 78 09/11/19 04:00 97.7 78 20 162/76 (104) 98 09/11/19 02:44 71 18 30 09/11/19 01:11 74 20 30 09/11/19 00:26 152/75 09/11/19 00:00 Mechanical Ventilator Mechanical Ventilator Mechanical Ventilator Mechanical Ventilator 09/11/19 00:00 30 09/11/19 00:00 97.3 80 18 152/75 (100) 99 09/11/19 00:00 82 09/10/19 23:45 72 18 100 Mechanical Ventilator 40 09/10/19 22:44 80 18 100 Mechanical Ventilator 30 82 18 30 09/10/19 20:32 72 18 30 09/10/19 20:00 Mechanical Ventilator Mechanical Ventilator Mechanical Ventilator Mechanical Ventilator 09/10/19 20:00 30 09/10/19 20:00 97.7 73 18 142/76 (98) 99 09/10/19 20:00 73 09/10/19 18:59 81 19 100 Mechanical Ventilator 30 77 18 30 09/10/19 18:48 82 148/78 09/10/19 18:48 148/78 09/10/19 18:46 82 148/78 (101) 09/10/19 17:07 70 18 100 Mechanical Ventilator 30 80 18 30 09/10/19 16:00 83 17 146/67 (93) 100 09/10/19 16:00 83 09/10/19 16:00 Mechanical Ventilator Mechanical Ventilator Mechanical Ventilator Mechanical Ventilator 09/10/19 16:00 30 09/10/19 15:02 74 19 100 Mechanical Ventilator 30 80 18 30 09/10/19 15:00 71 17 146/69 (94) 100 09/10/19 14:00 72 16 141/64 (89) 100 09/10/19 13:14 72 18 30 09/10/19 13:00 76 13 136/63 (87) 100 09/10/19 12:38 145/58 09/10/19 12:08 97.9 80 22 145/58 (87) 100 09/10/19 12:00 30 09/10/19 12:00 Mechanical Ventilator Mechanical Ventilator Mechanical Ventilator Mechanical Ventilator 09/10/19 11:12 74 18 100 Mechanical Ventilator 30 80 18 30 09/10/19 11:12 73 09/10/19 11:00 74 14 143/66 (91) 100 09/10/19 10:03 76 18 139/62 (87) 100 09/10/19 09:21 79 18 30 09/10/19 09:00 80 12 145/67 (93) 100 09/10/19 08:49 85 148/62 09/10/19 08:00 Mechanical Ventilator Mechanical Ventilator Mechanical Ventilator Mechanical Ventilator 09/10/19 08:00 30 09/10/19 08:00 98.0 85 17 148/62 (90) 100 09/10/19 07:48 84 09/10/19 07:24 78 18 100 Mechanical Ventilator 30 81 18 30 09/10/19 07:00 78 18 130/67 (88) 100 09/10/19 06:05 146/92 09/10/19 06:00 97 24 146/92 (110) 100 09/10/19 05:00 93 19 147/68 (94) 100 09/10/19 04:39 88 18 30 09/10/19 04:00 Mechanical Ventilator Mechanical Ventilator Mechanical Ventilator Mechanical Ventilator 09/10/19 04:00 30 09/10/19 04:00 98.8 86 18 147/66 (93) 100 09/10/19 04:00 99 09/10/19 03:13 93 20 100 30 94 20 30 09/10/19 03:00 91 18 143/76 (98) 98 09/10/19 02:00 88 22 148/76 (100) 100 09/10/19 01:08 91 18 30 09/10/19 01:00 87 15 145/71 (95) 100 09/10/19 00:08 142/72 09/10/19 00:00 30 09/10/19 00:00 98.6 93 26 142/72 (95) 99 09/10/19 00:00 Mechanical Ventilator Mechanical Ventilator Mechanical Ventilator Mechanical Ventilator 09/10/19 00:00 92 09/09/19 23:06 86 18 100 30 88 20 30 09/09/19 23:00 84 19 158/64 (95) 99 09/09/19 22:00 87 19 139/73 (95) 100 09/09/19 21:01 90 21 30 09/09/19 21:00 92 21 124/75 (91) 100 09/09/19 20:00 30 09/09/19 20:00 89 09/09/19 20:00 97.9 90 24 154/71 (98) 100 09/09/19 20:00 Mechanical Ventilator Mechanical Ventilator Mechanical Ventilator Mechanical Ventilator 09/09/19 19:07 81 24 100 30 82 20 30 09/09/19 19:00 79 16 151/86 (107) 100 09/09/19 18:00 81 21 146/103 (117) 99 09/09/19 17:16 88 150/77 09/09/19 17:16 150/77 09/09/19 17:00 81 20 150/77 (101) 99 09/09/19 16:59 83 21 30 09/09/19 16:00 84 09/09/19 16:00 30 09/09/19 16:00 Mechanical Ventilator Mechanical Ventilator Mechanical Ventilator Mechanical Ventilator 09/09/19 16:00 98.7 83 18 169/77 (107) 100 09/09/19 15:00 85 18 156/95 (115) 100 09/09/19 14:35 80 18 100 Mechanical Ventilator 30 82 18 30 09/09/19 14:00 80 21 145/65 (91) 100 09/09/19 13:00 79 20 136/59 (84) 100 09/09/19 12:30 82 18 35 09/09/19 12:00 85 09/09/19 12:00 Mechanical Ventilator Mechanical Ventilator Mechanical Ventilator Mechanical Ventilator 09/09/19 12:00 40 09/09/19 12:00 98.5 83 19 137/67 (90) 100 09/09/19 11:40 143/116 09/09/19 11:00 85 18 143/116 (125) 100 Intake and Output 09/10/19 09/11/19 19:00 07:00 Intake Total 520 ml 450 ml Output Total 65 ml 300 ml Balance 455 ml 150 ml Intake Free Water 100 ml 100 ml Tube Feeding 420 ml 350 ml Output Urine Total 65 ml 300 ml # Bowel Movements 1 2 Labs Test 09/09/19 03:35 09/10/19 03:50 09/11/19 03:39 09/11/19 06:18 White Blood Count 9.2 K/UL (4.8-10.8) 12.4 K/UL (4.8-10.8) 10.7 K/UL (4.8-10.8) Red Blood Count 3.50 M/UL (4.20-5.40) 3.33 M/UL (4.20-5.40) 3.41 M/UL (4.20-5.40) Hemoglobin 10.4 G/DL (12.0-16.0) 10.0 G/DL (12.0-16.0) 10.3 G/DL (12.0-16.0) Hematocrit 31.4 % (37.0-47.0) 29.5 % (37.0-47.0) 30.4 % (37.0-47.0) Mean Corpuscular Volume 90 FL (80-99) 89 FL (80-99) 89 FL (80-99) Mean Corpuscular Hemoglobin 29.6 PG (27.0-31.0) 30.1 PG (27.0-31.0) 30.1 PG (27.0-31.0) Mean Corpuscular Hemoglobin Concent 33.1 G/DL (32.0-36.0) 33.9 G/DL (32.0-36.0) 33.8 G/DL (32.0-36.0) Red Cell Distribution Width 14.8 % (11.6-14.8) 14.8 % (11.6-14.8) 15.4 % (11.6-14.8) Platelet Count 252 K/UL (150-450) 327 K/UL (150-450) 344 K/UL (150-450) Mean Platelet Volume 4.4 FL (6.5-10.1) 4.4 FL (6.5-10.1) 4.7 FL (6.5-10.1) Neutrophils (%) (Auto) 65.1 % (45.0-75.0) 76.7 % (45.0-75.0) 77.3 % (45.0-75.0) Lymphocytes (%) (Auto) 26.6 % (20.0-45.0) 18.3 % (20.0-45.0) 17.5 % (20.0-45.0) Monocytes (%) (Auto) 7.1 % (1.0-10.0) 4.3 % (1.0-10.0) 3.8 % (1.0-10.0) Eosinophils (%) (Auto) 0.7 % (0.0-3.0) 0.4 % (0.0-3.0) 1.0 % (0.0-3.0) Basophils (%) (Auto) 0.5 % (0.0-2.0) 0.5 % (0.0-2.0) 0.4 % (0.0-2.0) Sodium Level 141 MMOL/L (136-145) 141 MMOL/L (136-145) 142 MMOL/L (136-145) Potassium Level 3.6 MMOL/L (3.5-5.1) 2.9 MMOL/L (3.5-5.1) 3.5 MMOL/L (3.5-5.1) Chloride Level 105 MMOL/L (98-107) 103 MMOL/L (98-107) 104 MMOL/L (98-107) Carbon Dioxide Level 31 MMOL/L (21-32) 31 MMOL/L (21-32) 31 MMOL/L (21-32) Anion Gap 5 mmol/L (5-15) 7 mmol/L (5-15) 7 mmol/L (5-15) Blood Urea Nitrogen 35 mg/dL (7-18) 41 mg/dL (7-18) 49 mg/dL (7-18) Creatinine 2.6 MG/DL (0.55-1.30) 3.1 MG/DL (0.55-1.30) 3.3 MG/DL (0.55-1.30) Estimat Glomerular Filtration Rate 17.7 mL/min (>60) 14.5 mL/min (>60) 13.5 mL/min (>60) Glucose Level 103 MG/DL (74-106) 153 MG/DL (74-106) 137 MG/DL (74-106) Uric Acid 3.4 MG/DL (2.6-7.2) Calcium Level 9.1 MG/DL (8.5-10.1) 9.1 MG/DL (8.5-10.1) 8.8 MG/DL (8.5-10.1) Phosphorus Level 1.6 MG/DL (2.5-4.9) 2.4 MG/DL (2.5-4.9) 3.8 MG/DL (2.5-4.9) Magnesium Level 2.1 MG/DL (1.8-2.4) 2.0 MG/DL (1.8-2.4) 2.0 MG/DL (1.8-2.4) Total Bilirubin 0.6 MG/DL (0.2-1.0) 0.7 MG/DL (0.2-1.0) 0.6 MG/DL (0.2-1.0) Aspartate Amino Transf (AST/SGOT) 28 U/L (15-37) 30 U/L (15-37) 36 U/L (15-37) Alanine Aminotransferase (ALT/SGPT) 12 U/L (12-78) 7 U/L (12-78) 11 U/L (12-78) Alkaline Phosphatase 130 U/L (46-116) 148 U/L (46-116) 163 U/L (46-116) Total Creatine Kinase 84 U/L (26-308) C-Reactive Protein, Quantitative 18.8 mg/dL (0.00-0.90) 25.4 mg/dL (0.00-0.90) 34.2 mg/dL (0.00-0.90) Pro-B-Type Natriuretic Peptide > 87843 pg/mL (0-125) > 34902 pg/mL (0-125) > 16051 pg/mL (0-125) Total Protein 6.6 G/DL (6.4-8.2) 7.0 G/DL (6.4-8.2) 7.1 G/DL (6.4-8.2) Albumin 2.5 G/DL (3.4-5.0) 2.4 G/DL (3.4-5.0) 2.3 G/DL (3.4-5.0) Globulin 4.1 g/dL 4.6 g/dL 4.8 g/dL Albumin/Globulin Ratio 0.6 (1.0-2.7) 0.5 (1.0-2.7) 0.5 (1.0-2.7) Thyroid Stimulating Hormone (TSH) 2.434 uiU/mL (0.358-3.740) Free Thyroxine 1.36 NG/DL (0.76-1.46) Height (Feet): 5 Height (Inches): 4.00 Weight (Pounds): 112 Objective gen: nad pulm: on trach+ / vent, decreased breath sounds left, chest tube+ cv: rrr, no gmr abd: sfot, nt, nd ++ gt ext: no cce Gio Rob MD Sep 11, 2019 10:38
[2019-09-11] MEDS: Albuterol/Ipratropium 3ml neb HHN SCH ×4 (10:45→23:11)
--- NOTE | 2019-09-11 12:47 | General Progress Note ---
Assessment/Plan Problem List: (1) Failure to thrive (0-17) ICD Codes: R62.51 - Failure to thrive (0-17) SNOMED: 243305759 (2) Hypertensive kidney disease ICD Codes: I12.9 - Hypertensive chronic kidney disease with stage 1 through stage 4 chronic kidney disease, or unspecified chronic kidney disease SNOMED: 90764412 (3) Pneumonia ICD Codes: J18.9 - Pneumonia, unspecified organism SNOMED: 228377856 Qualifiers: Qualified Codes: J18.9 - Pneumonia, unspecified organism (4) ESRD (end stage renal disease) ICD Codes: N18.6 - End stage renal disease SNOMED: 11221223 (5) Septic arthritis ICD Codes: M00.9 - Pyogenic arthritis, unspecified SNOMED: 603335403 (6) Thrombocytopenia ICD Codes: D69.6 - Thrombocytopenia, unspecified SNOMED: 515123889 (7) Hypotension ICD Codes: I95.9 - Hypotension, unspecified SNOMED: 91797785 Qualifiers: Qualified Codes: I95.3 - Hypotension of hemodialysis (8) Malnutrition ICD Codes: E46 - Unspecified protein-calorie malnutrition SNOMED: 68187650 Status: stable, not improved, unchanged, deteriorating Assessment/Plan: Continue ventilatory support. Respiratory treatments and suctioning. Monitor chest x-ray. Antibiotics per ID. Hemodialysis per renal. Monitor labs. Discharge planning. Subjective ROS Limited/Unobtainable: No Constitutional: Reports: malaise, weakness HEENT: Reports: no symptoms Cardiovascular: Reports: no symptoms Respiratory: Reports: shortness of breath, sputum Gastrointestinal/Abdominal: Reports: difficulty swallowing Genitourinary: Reports: no symptoms Neurologic/Psychiatric: Reports: pre-existing deficit Endocrine: Reports: no symptoms Hematologic/Lymphatic: Reports: anemia Allergies: Coded Allergies: VANCOMYCIN (Unverified Allergy, Unknown, 08/02/19) All Systems: reviewed and negative except above Subjective Patient is now transferred to the stepdown unit. Case was discussed with the night nurse.stable. awake and alert. no distress. d/w staff. no events last night. Patient is resting on the ventilator. She opens her eyes. No distress. Objective Last 24 Hour Vital Signs Date Time Temp Pulse Resp B/P (MAP) Pulse Ox O2 Delivery O2 Flow Rate FiO2 09/11/19 12:02 143/60 09/11/19 12:00 30 09/11/19 12:00 Mechanical Ventilator Mechanical Ventilator Mechanical Ventilator Mechanical Ventilator 09/11/19 11:35 83 09/11/19 11:25 97.7 73 20 143/60 (87) 99 09/11/19 11:00 82 19 100 Mechanical Ventilator 30 84 22 30 09/11/19 09:05 74 18 30 09/11/19 08:42 76 142/78 09/11/19 08:00 30 09/11/19 08:00 Mechanical Ventilator Mechanical Ventilator Mechanical Ventilator Mechanical Ventilator 09/11/19 07:40 97.8 76 20 142/78 (99) 100 09/11/19 07:39 74 09/11/19 07:10 93 18 30 09/11/19 05:57 162/76 09/11/19 05:05 78 20 30 09/11/19 04:00 30 09/11/19 04:00 Mechanical Ventilator Mechanical Ventilator Mechanical Ventilator Mechanical Ventilator 09/11/19 04:00 78 09/11/19 04:00 97.7 78 20 162/76 (104) 98 09/11/19 02:44 71 18 30 09/11/19 01:11 74 20 30 09/11/19 00:26 152/75 09/11/19 00:00 Mechanical Ventilator Mechanical Ventilator Mechanical Ventilator Mechanical Ventilator 09/11/19 00:00 30 09/11/19 00:00 97.3 80 18 152/75 (100) 99 09/11/19 00:00 82 09/10/19 23:45 72 18 100 Mechanical Ventilator 40 09/10/19 22:44 80 18 100 Mechanical Ventilator 30 82 18 30 09/10/19 20:32 72 18 30 09/10/19 20:00 Mechanical Ventilator Mechanical Ventilator Mechanical Ventilator Mechanical Ventilator 09/10/19 20:00 30 09/10/19 20:00 97.7 73 18 142/76 (98) 99 09/10/19 20:00 73 09/10/19 18:59 81 19 100 Mechanical Ventilator 30 77 18 30 09/10/19 18:48 82 148/78 09/10/19 18:48 148/78 09/10/19 18:46 82 148/78 (101) 09/10/19 17:07 70 18 100 Mechanical Ventilator 30 80 18 30 09/10/19 16:00 83 17 146/67 (93) 100 09/10/19 16:00 83 09/10/19 16:00 Mechanical Ventilator Mechanical Ventilator Mechanical Ventilator Mechanical Ventilator 09/10/19 16:00 30 09/10/19 15:02 74 19 100 Mechanical Ventilator 30 80 18 30 09/10/19 15:00 71 17 146/69 (94) 100 09/10/19 14:00 72 16 141/64 (89) 100 09/10/19 13:14 72 18 30 09/10/19 13:00 76 13 136/63 (87) 100 Intake and Output 09/10/19 09/11/19 19:00 07:00 Intake Total 520 ml 450 ml Output Total 65 ml 300 ml Balance 455 ml 150 ml Intake Free Water 100 ml 100 ml Tube Feeding 420 ml 350 ml Output Urine Total 65 ml 300 ml # Bowel Movements 1 2 Laboratory Tests 09/11/19 03:39: White Blood Count 10.7, Red Blood Count 3.41L, Hemoglobin 10.3L, Hematocrit 30.4L, Mean Corpuscular Volume 89, Mean Corpuscular Hemoglobin 30.1, Mean Corpuscular Hemoglobin Concent 33.8, Red Cell Distribution Width 15.4H, Platelet Count 344, Mean Platelet Volume 4.7L, Neutrophils (%) (Auto) 77.3H, Lymphocytes (%) (Auto) 17.5L, Monocytes (%) (Auto) 3.8, Eosinophils (%) (Auto) 1.0, Basophils (%) (Auto) 0.4, Sodium Level 142, Potassium Level 3.5, Chloride Level 104, Carbon Dioxide Level 31, Anion Gap 7, Blood Urea Nitrogen 49H, Creatinine 3.3H, Estimat Glomerular Filtration Rate 13.5, Glucose Level 137H, Calcium Level 8.8, Phosphorus Level 3.8, Magnesium Level 2.0, Total Bilirubin 0.6, Aspartate Amino Transf (AST/SGOT) 36, Alanine Aminotransferase (ALT/SGPT) 11L, Alkaline Phosphatase 163H, C-Reactive Protein, Quantitative 34.2H, Pro-B- Type Natriuretic Peptide > 23627Z, Total Protein 7.1, Albumin 2.3L, Globulin 4.8 , Albumin/Globulin Ratio 0.5L 09/11/19 06:18: Thyroid Stimulating Hormone (TSH) 2.434, Free Thyroxine 1.36 Height (Feet): 5 Height (Inches): 4.00 Weight (Pounds): 112 Objective General Appearance: WD/WN, awake/moaning. Neck: supple +trach Cardiovascular: normal rate Respiratory/Chest: rhonchi - bilaterally Abdomen: normal bowel sounds, non tender, soft, no organomegaly Edema: no edema noted Arm (L), no edema noted Arm (R), no edema noted Leg (L), no edema noted Leg (R), no edema noted Pedal (L), no edema noted Pedal (R), no edema noted Generalized Neurologic: disoriented, aphasia Nate Beltran MD Sep 11, 2019 12:47
--- NOTE | 2019-09-11 14:16 | Infectious Diseases Prog Note ---
Assessment/Plan Assessment/Plan A; 1. Hailee sepsis treated 2. Klebsiella sepsis , treated 3. Right shoulder septic arthritis, status post surgery. 4. Diabetes. 5. Hypertension. 6. Anemia 7. Thrombocytopenia improving 9. Atelectasis , left lung collapse 10. Pleural effusion, hemothorax 11. Ulcerative esophagitis PLAN: 1. Observe off antibiotic Subjective ROS Limited/Unobtainable: Yes Constitutional: Reports: other - transferred from ICU to [facility] Neurologic: Reports: confusion, other - on restraint Allergies: Coded Allergies: VANCOMYCIN (Unverified Allergy, Unknown, 08/02/19) Objective Vital Signs Last 24 Hour Vital Signs Date Time Temp Pulse Resp B/P (MAP) Pulse Ox O2 Delivery O2 Flow Rate FiO2 09/11/19 13:57 72 20 124/74 (91) 99 09/11/19 13:05 82 23 100 Mechanical Ventilator 30 84 22 30 09/11/19 12:02 143/60 09/11/19 12:00 30 09/11/19 12:00 Mechanical Ventilator Mechanical Ventilator Mechanical Ventilator Mechanical Ventilator 09/11/19 11:35 83 09/11/19 11:25 97.7 73 20 143/60 (87) 99 09/11/19 11:00 82 19 100 Mechanical Ventilator 30 84 22 30 09/11/19 09:05 74 18 30 09/11/19 08:42 76 142/78 09/11/19 08:00 30 09/11/19 08:00 Mechanical Ventilator Mechanical Ventilator Mechanical Ventilator Mechanical Ventilator 09/11/19 07:40 97.8 76 20 142/78 (99) 100 09/11/19 07:39 74 09/11/19 07:10 93 18 30 09/11/19 05:57 162/76 09/11/19 05:05 78 20 30 09/11/19 04:00 30 09/11/19 04:00 Mechanical Ventilator Mechanical Ventilator Mechanical Ventilator Mechanical Ventilator 09/11/19 04:00 78 09/11/19 04:00 97.7 78 20 162/76 (104) 98 09/11/19 02:44 71 18 30 09/11/19 01:11 74 20 30 09/11/19 00:26 152/75 09/11/19 00:00 Mechanical Ventilator Mechanical Ventilator Mechanical Ventilator Mechanical Ventilator 09/11/19 00:00 30 09/11/19 00:00 97.3 80 18 152/75 (100) 99 09/11/19 00:00 82 09/10/19 23:45 72 18 100 Mechanical Ventilator 40 09/10/19 22:44 80 18 100 Mechanical Ventilator 30 82 18 30 09/10/19 20:32 72 18 30 09/10/19 20:00 Mechanical Ventilator Mechanical Ventilator Mechanical Ventilator Mechanical Ventilator 09/10/19 20:00 30 09/10/19 20:00 97.7 73 18 142/76 (98) 99 09/10/19 20:00 73 09/10/19 18:59 81 19 100 Mechanical Ventilator 30 77 18 30 09/10/19 18:48 82 148/78 09/10/19 18:48 148/78 09/10/19 18:46 82 148/78 (101) 09/10/19 17:07 70 18 100 Mechanical Ventilator 30 80 18 30 09/10/19 16:00 83 17 146/67 (93) 100 09/10/19 16:00 83 09/10/19 16:00 Mechanical Ventilator Mechanical Ventilator Mechanical Ventilator Mechanical Ventilator 09/10/19 16:00 30 09/10/19 15:02 74 19 100 Mechanical Ventilator 30 80 18 30 09/10/19 15:00 71 17 146/69 (94) 100 Height (Feet): 5 Height (Inches): 4.00 Weight (Pounds): 112 General Appearance: cachetic HEENT: status post trach Respiratory/Chest: lungs clear, other - on ventilator Cardiovascular: normal rate Abdomen: soft, non tender, other - GT feeding Extremities: no edema Neurologic/Psychiatric: disoriented, aphasia Musculoskeletal: atrophy Laboratory Tests Test 09/11/19 03:39 09/11/19 06:18 White Blood Count 10.7 K/UL (4.8-10.8) Red Blood Count 3.41 M/UL (4.20-5.40) L Hemoglobin 10.3 G/DL (12.0-16.0) L Hematocrit 30.4 % (37.0-47.0) L Mean Corpuscular Volume 89 FL (80-99) Mean Corpuscular Hemoglobin 30.1 PG (27.0-31.0) Mean Corpuscular Hemoglobin Concent 33.8 G/DL (32.0-36.0) Red Cell Distribution Width 15.4 % (11.6-14.8) H Platelet Count 344 K/UL (150-450) Mean Platelet Volume 4.7 FL (6.5-10.1) L Neutrophils (%) (Auto) 77.3 % (45.0-75.0) H Lymphocytes (%) (Auto) 17.5 % (20.0-45.0) L Monocytes (%) (Auto) 3.8 % (1.0-10.0) Eosinophils (%) (Auto) 1.0 % (0.0-3.0) Basophils (%) (Auto) 0.4 % (0.0-2.0) Sodium Level 142 MMOL/L (136-145) Potassium Level 3.5 MMOL/L (3.5-5.1) Chloride Level 104 MMOL/L (98-107) Carbon Dioxide Level 31 MMOL/L (21-32) Anion Gap 7 mmol/L (5-15) Blood Urea Nitrogen 49 mg/dL (7-18) H Creatinine 3.3 MG/DL (0.55-1.30) H Estimat Glomerular Filtration Rate 13.5 mL/min (>60) Glucose Level 137 MG/DL (74-106) H Calcium Level 8.8 MG/DL (8.5-10.1) Phosphorus Level 3.8 MG/DL (2.5-4.9) Magnesium Level 2.0 MG/DL (1.8-2.4) Total Bilirubin 0.6 MG/DL (0.2-1.0) Aspartate Amino Transf (AST/SGOT) 36 U/L (15-37) Alanine Aminotransferase (ALT/SGPT) 11 U/L (12-78) L Alkaline Phosphatase 163 U/L (46-116) H C-Reactive Protein, Quantitative 34.2 mg/dL (0.00-0.90) H Pro-B-Type Natriuretic Peptide > 87531 pg/mL (0-125) H Total Protein 7.1 G/DL (6.4-8.2) Albumin 2.3 G/DL (3.4-5.0) L Globulin 4.8 g/dL Albumin/Globulin Ratio 0.5 (1.0-2.7) L Thyroid Stimulating Hormone (TSH) 2.434 uiU/mL (0.358-3.740) Free Thyroxine 1.36 NG/DL (0.76-1.46) Current Medications Medications (Trade) Dose Ordered Sig/Javier Route PRN Reason Start Time Stop Time Status Last Admin Dose Admin Acetaminophen (Tylenol) 650 mg Q4H PRN GT Mild Pain/Temp > 100.5 09/03/19 07:00 10/03/19 06:59 09/09/19 06:13 Acetylcysteine (Mucomyst) 100 mg Q4HRT HHN 08/31/19 19:00 11/29/19 18:59 09/11/19 10:45 Albuterol/ Ipratropium (Albuterol/ Ipratropium) 3 ml Q4HRT HHN 09/11/19 11:00 09/16/19 10:59 09/11/19 10:45 Amlodipine Besylate (Norvasc) 5 mg BID NG 08/23/19 01:45 09/22/19 01:44 09/11/19 08:42 Atropine Sulfate (Atropine) 1 mg Q4H PRN IVP Per rx protocol 08/13/19 08:30 09/12/19 08:29 Chlorhexidine Gluconate (Nae-Hex 2%) 1 applic DAILY@2000 TOPIC 08/15/19 20:00 09/14/19 19:59 09/10/19 20:38 Dextrose (Dextrose 50%) 25 ml Q30M PRN IV Hypoglycemia 09/02/19 06:15 12/01/19 06:14 09/04/19 12:11 Dextrose (Dextrose 50%) 50 ml Q30M PRN IV Hypoglycemia 09/02/19 06:15 12/01/19 06:14 Epoetin Thomas (Epoetin Thomas(ESRD on dialysis)) 4,000 unit THU-THU-THU SUBQ 08/12/19 21:00 09/11/19 20:59 09/09/19 20:33 Hydralazine HCl (Apresoline) 10 mg Q4H PRN IV For High Blood Pressure 08/18/19 12:44 09/17/19 12:43 09/01/19 20:27 Hydralazine HCl (Apresoline) 25 mg Q6HR NG 08/23/19 06:00 09/22/19 05:59 09/11/19 12:02 Lansoprazole (Prevacid) 30 mg BID GT 08/19/19 09:00 09/18/19 08:59 09/11/19 08:42 Levothyroxine Sodium (Synthroid) 50 mcg DAILY@0630 ORAL 08/25/19 06:30 09/24/19 06:29 09/11/19 05:45 Midazolam HCl 100 ml @ 0 mls/hr Q24H PRN IV Agitation 09/05/19 18:15 09/12/19 18:14 Warren Parks MD Sep 11, 2019 14:16
--- NOTE | 2019-09-11 14:44 | General Progress Note ---
Assessment/Plan Status: stable, not improved, unchanged, deteriorating Assessment/Plan: Assessment - Severe ulcerative esophagitis - Resp failure - s/p recent Chest tube - thrombocytopenia --> resolved - Renal failure - aspiration risk --> s/p PEG - anemia - bradycardia - Poor prognosis Recommendations - GT care - water flushes - elevate HOB - monitor H&H - vent Subjective Allergies: Coded Allergies: VANCOMYCIN (Unverified Allergy, Unknown, 08/02/19) Subjective Above noted No events overnight d/w RN Objective Last 24 Hour Vital Signs Date Time Temp Pulse Resp B/P (MAP) Pulse Ox O2 Delivery O2 Flow Rate FiO2 09/11/19 13:57 72 20 124/74 (91) 99 09/11/19 13:05 82 23 30 09/11/19 12:02 143/60 09/11/19 12:00 30 09/11/19 12:00 Mechanical Ventilator Mechanical Ventilator Mechanical Ventilator Mechanical Ventilator 09/11/19 11:35 83 09/11/19 11:25 97.7 73 20 143/60 (87) 99 09/11/19 11:00 82 19 100 Mechanical Ventilator 30 84 22 30 09/11/19 09:05 74 18 30 09/11/19 08:42 76 142/78 09/11/19 08:00 30 09/11/19 08:00 Mechanical Ventilator Mechanical Ventilator Mechanical Ventilator Mechanical Ventilator 09/11/19 07:40 97.8 76 20 142/78 (99) 100 09/11/19 07:39 74 09/11/19 07:10 93 18 30 09/11/19 05:57 162/76 09/11/19 05:05 78 20 30 09/11/19 04:00 30 09/11/19 04:00 Mechanical Ventilator Mechanical Ventilator Mechanical Ventilator Mechanical Ventilator 09/11/19 04:00 78 09/11/19 04:00 97.7 78 20 162/76 (104) 98 09/11/19 02:44 71 18 30 09/11/19 01:11 74 20 30 09/11/19 00:26 152/75 09/11/19 00:00 Mechanical Ventilator Mechanical Ventilator Mechanical Ventilator Mechanical Ventilator 09/11/19 00:00 30 09/11/19 00:00 97.3 80 18 152/75 (100) 99 09/11/19 00:00 82 09/10/19 23:45 72 18 100 Mechanical Ventilator 40 09/10/19 22:44 80 18 100 Mechanical Ventilator 30 82 18 30 09/10/19 20:32 72 18 30 09/10/19 20:00 Mechanical Ventilator Mechanical Ventilator Mechanical Ventilator Mechanical Ventilator 09/10/19 20:00 30 09/10/19 20:00 97.7 73 18 142/76 (98) 99 09/10/19 20:00 73 09/10/19 18:59 81 19 100 Mechanical Ventilator 30 77 18 30 09/10/19 18:48 82 148/78 09/10/19 18:48 148/78 09/10/19 18:46 82 148/78 (101) 09/10/19 17:07 70 18 100 Mechanical Ventilator 30 80 18 30 09/10/19 16:00 83 17 146/67 (93) 100 09/10/19 16:00 83 09/10/19 16:00 Mechanical Ventilator Mechanical Ventilator Mechanical Ventilator Mechanical Ventilator 09/10/19 16:00 30 09/10/19 15:02 74 19 100 Mechanical Ventilator 30 80 18 30 09/10/19 15:00 71 17 146/69 (94) 100 Intake and Output 09/10/19 09/11/19 19:00 07:00 Intake Total 520 ml 450 ml Output Total 65 ml 300 ml Balance 455 ml 150 ml Intake Free Water 100 ml 100 ml Tube Feeding 420 ml 350 ml Output Urine Total 65 ml 300 ml # Bowel Movements 1 2 Laboratory Tests 09/11/19 03:39: White Blood Count 10.7, Red Blood Count 3.41L, Hemoglobin 10.3L, Hematocrit 30.4L, Mean Corpuscular Volume 89, Mean Corpuscular Hemoglobin 30.1, Mean Corpuscular Hemoglobin Concent 33.8, Red Cell Distribution Width 15.4H, Platelet Count 344, Mean Platelet Volume 4.7L, Neutrophils (%) (Auto) 77.3H, Lymphocytes (%) (Auto) 17.5L, Monocytes (%) (Auto) 3.8, Eosinophils (%) (Auto) 1.0, Basophils (%) (Auto) 0.4, Sodium Level 142, Potassium Level 3.5, Chloride Level 104, Carbon Dioxide Level 31, Anion Gap 7, Blood Urea Nitrogen 49H, Creatinine 3.3H, Estimat Glomerular Filtration Rate 13.5, Glucose Level 137H, Calcium Level 8.8, Phosphorus Level 3.8, Magnesium Level 2.0, Total Bilirubin 0.6, Aspartate Amino Transf (AST/SGOT) 36, Alanine Aminotransferase (ALT/SGPT) 11L, Alkaline Phosphatase 163H, C-Reactive Protein, Quantitative 34.2H, Pro-B- Type Natriuretic Peptide > 00266B, Total Protein 7.1, Albumin 2.3L, Globulin 4.8 , Albumin/Globulin Ratio 0.5L 09/11/19 06:18: Thyroid Stimulating Hormone (TSH) 2.434, Free Thyroxine 1.36 Height (Feet): 5 Height (Inches): 4.00 Weight (Pounds): 112 Objective Debilitated frail woman NCAT (+) on vent supple, (+) trach scattered ronchi RR abd soft ND NT, (+) GT no edema Cristy Elizondo MD Sep 11, 2019 14:44
[2019-09-11] MEDS ORDERED: NS 275ml ONE (16:05)
--- NOTE | 2019-09-11 17:09 | Surgery Progress Note ---
Surgery Progress Note Subjective Procedure Performed 1. tracheostomy 2 removal of left tube thoracostomy Additional Comments no acute events comfortable appearing otherwise labs noted Objective Last 24 Hour Vital Signs Date Time Temp Pulse Resp B/P (MAP) Pulse Ox O2 Delivery O2 Flow Rate FiO2 09/11/19 16:00 98.0 76 20 152/71 (98) 99 09/11/19 16:00 Mechanical Ventilator Mechanical Ventilator Mechanical Ventilator Mechanical Ventilator 09/11/19 16:00 30 09/11/19 15:20 78 09/11/19 13:57 72 20 124/74 (91) 99 09/11/19 13:05 82 23 30 09/11/19 12:02 143/60 09/11/19 12:00 30 09/11/19 12:00 Mechanical Ventilator Mechanical Ventilator Mechanical Ventilator Mechanical Ventilator 09/11/19 11:35 83 09/11/19 11:25 97.7 73 20 143/60 (87) 99 09/11/19 11:00 82 19 100 Mechanical Ventilator 30 84 22 30 09/11/19 09:05 74 18 30 09/11/19 08:42 76 142/78 09/11/19 08:00 30 09/11/19 08:00 Mechanical Ventilator Mechanical Ventilator Mechanical Ventilator Mechanical Ventilator 09/11/19 07:40 97.8 76 20 142/78 (99) 100 09/11/19 07:39 74 09/11/19 07:10 93 18 30 09/11/19 05:57 162/76 09/11/19 05:05 78 20 30 09/11/19 04:00 30 09/11/19 04:00 Mechanical Ventilator Mechanical Ventilator Mechanical Ventilator Mechanical Ventilator 09/11/19 04:00 78 09/11/19 04:00 97.7 78 20 162/76 (104) 98 09/11/19 02:44 71 18 30 09/11/19 01:11 74 20 30 09/11/19 00:26 152/75 09/11/19 00:00 Mechanical Ventilator Mechanical Ventilator Mechanical Ventilator Mechanical Ventilator 09/11/19 00:00 30 09/11/19 00:00 97.3 80 18 152/75 (100) 99 09/11/19 00:00 82 09/10/19 23:45 72 18 100 Mechanical Ventilator 40 09/10/19 22:44 80 18 100 Mechanical Ventilator 30 82 18 30 09/10/19 20:32 72 18 30 09/10/19 20:00 Mechanical Ventilator Mechanical Ventilator Mechanical Ventilator Mechanical Ventilator 09/10/19 20:00 30 09/10/19 20:00 97.7 73 18 142/76 (98) 99 09/10/19 20:00 73 09/10/19 18:59 81 19 100 Mechanical Ventilator 30 77 18 30 09/10/19 18:48 82 148/78 09/10/19 18:48 148/78 09/10/19 18:46 82 148/78 (101) I&O Intake and Output 09/10/19 09/11/19 19:00 07:00 Intake Total 520 ml 450 ml Output Total 65 ml 300 ml Balance 455 ml 150 ml Intake Free Water 100 ml 100 ml Tube Feeding 420 ml 350 ml Output Urine Total 65 ml 300 ml # Bowel Movements 1 2 Dressing: other Wound: other Drains: other Cardiovascular: RSR Respiratory: decreased breath sounds Abdomen: soft, non-tender, present bowel sounds Extremities: no cyanosis Laboratory Tests Test 09/11/19 03:39 09/11/19 06:18 White Blood Count 10.7 K/UL (4.8-10.8) Red Blood Count 3.41 M/UL (4.20-5.40) L Hemoglobin 10.3 G/DL (12.0-16.0) L Hematocrit 30.4 % (37.0-47.0) L Mean Corpuscular Volume 89 FL (80-99) Mean Corpuscular Hemoglobin 30.1 PG (27.0-31.0) Mean Corpuscular Hemoglobin Concent 33.8 G/DL (32.0-36.0) Red Cell Distribution Width 15.4 % (11.6-14.8) H Platelet Count 344 K/UL (150-450) Mean Platelet Volume 4.7 FL (6.5-10.1) L Neutrophils (%) (Auto) 77.3 % (45.0-75.0) H Lymphocytes (%) (Auto) 17.5 % (20.0-45.0) L Monocytes (%) (Auto) 3.8 % (1.0-10.0) Eosinophils (%) (Auto) 1.0 % (0.0-3.0) Basophils (%) (Auto) 0.4 % (0.0-2.0) Sodium Level 142 MMOL/L (136-145) Potassium Level 3.5 MMOL/L (3.5-5.1) Chloride Level 104 MMOL/L (98-107) Carbon Dioxide Level 31 MMOL/L (21-32) Anion Gap 7 mmol/L (5-15) Blood Urea Nitrogen 49 mg/dL (7-18) H Creatinine 3.3 MG/DL (0.55-1.30) H Estimat Glomerular Filtration Rate 13.5 mL/min (>60) Glucose Level 137 MG/DL (74-106) H Calcium Level 8.8 MG/DL (8.5-10.1) Phosphorus Level 3.8 MG/DL (2.5-4.9) Magnesium Level 2.0 MG/DL (1.8-2.4) Total Bilirubin 0.6 MG/DL (0.2-1.0) Aspartate Amino Transf (AST/SGOT) 36 U/L (15-37) Alanine Aminotransferase (ALT/SGPT) 11 U/L (12-78) L Alkaline Phosphatase 163 U/L (46-116) H C-Reactive Protein, Quantitative 34.2 mg/dL (0.00-0.90) H Pro-B-Type Natriuretic Peptide > 79946 pg/mL (0-125) H Total Protein 7.1 G/DL (6.4-8.2) Albumin 2.3 G/DL (3.4-5.0) L Globulin 4.8 g/dL Albumin/Globulin Ratio 0.5 (1.0-2.7) L Thyroid Stimulating Hormone (TSH) 2.434 uiU/mL (0.358-3.740) Free Thyroxine 1.36 NG/DL (0.76-1.46) Assessment Post-op Diagnosis same Plan Problems: (1) Malnutrition Assessment & Plan: DAILY ESTIMATED NEEDS: Needs based on ESRD+ HD, underweight, wound/ 39.5kg 35-40 kcals/kg 1552-6596 total kcals 1.25-1.8 g protein/kg 49-71 g total protein 20-22 mL/kg 790-869 total fluid mLs NUTRITION DIAGNOSIS: * Increased kcal and protein needs r/t underweight status, HD needs, wuond healing as evidenced by pt is underweight per guidelines, ESRD, on HD, admitted non-blanching erythema wounds @ BL heels and sacrum * Swallowing difficulty R/T dysphagia as evidenced by AIRPLANE PILOT CROP DUSTING recommends temporary nonoral feeding at this time, s/p NGT insertion, on NGT feeding-> now s/p self removal, NPO. CURRENT TF:NPO PO DIET RECOMMENDATIONS: WHEN SAFE FOR ORAL DIET -> renal/ texture per AIRPLANE PILOT CROP DUSTING ENTERAL NUTRITION RECOMMENDATIONS: W/ GI access: Nepro @ 35ml/hr x 22 hrs to provide 770ml, 1386kcal, 62g prot, 560ml free water * W/ GI access, resume TF on Nepro * Initiate Nepro @ 15ml/hr x 6 hrs, advance 10ml q 4-6 hrs as tolerated to goal rate. * Hold 1 hour before and after Synthroid med * HOB over 30 degrees/ water flush per MD. ADDITIONAL RECOMMENDATIONS: 1) Calibrated bed scale wt for accurate CBW -> daily wt monitoring Per HD record: dry wt on 07/30=39.5kg (87lbs) 2) Wound care: (W/ GI access) add Nephorivte x 1 + Balta BID 3) Monitor NPO status: without GI access at this time, s/p pulling out NGT 4) Monitor for hypoglycemia while NPO 5) Monitor for continuity of HD (2) Septic arthritis Assessment & Plan: Pt presented on admission with generalized scaly rash . pt noted to be restless and scratching at skin. Bleeding from oral mucosa noted. Joint deformity noted to R shoulder. Surgical incision approximated with 11 sutures. Erythema but no exudate,or elevation in skin temp at site of incision. Historical incision R hip that is tunneled.Small amt seropurulent exudate noted. Periwound is erythematous,but no elevation in skin temp noted. No odor noted. Non-blanching erythema noted to sacrum. Perianal area is erythematous and excoriated. L heel is boggy with non-blanching erythema. R heel is soft with non-blanching erythema. No evidence of skin breakdown to all other bony prominences. Tx.plan: Cover R shoulder with Drsg and change daily and prn. Cleanse R hip wound with Saline. Apply Therahoney.Apply Cavilon Skin Barrier periwound. Cover with Optifoam drsg. Change every 3 days and prn. Apply Moisture Barrier Paste to perianal area and buttocks. Cover Sacrum with Optifoam drsg. Change every 3 days and prn. Apply Cavilon Skin Barrier to both heels. Cover each heel with Optifoam drsg. Change every 7 days and prn. APM/ELVIA Mattress overlay. Reposition at least every 2hours or as tolerated. Off-load heels with pillow. HD cath necessary HD as renal likely will need intubation (3) Wound, open, hip or thigh with complication Assessment & Plan: slow healing will need nutritional optimization difficult ng tube peg when stable sutures removed from right shoulder comfortable wean vent may need trach (4) Abscess of right hip (5) possible septic arthritis (6) Renal failure (ARF), acute on chronic Assessment & Plan: cont HD will need tunneled cath placement okay to use fem line for now but will need change soon. line monitored and clean dressings going well (7) Pneumonia Assessment & Plan: intubated on vent support not tolerating weaning may need trach hemothorax likely after thoracentesis Chest CT noted Left chest tube placed With plan for trach chest tube can be considered but overall prognosis is very poor s/p trach left chest tub eout cxr noted and okay downgrade Camilo James Sep 11, 2019 17:09
--- NOTE | 2019-09-11 23:00 | Progress Note ---
DATE: 09/11/2019 CARDIOLOGY PROGRESS NOTE SUBJECTIVE: The patient remains on ventilator support via tracheostomy. She is alert and opens her eyes. She is in no distress. Monitored rhythm, sinus. PHYSICAL EXAMINATION: VITAL SIGNS: Blood pressure 143/60, pulse 83, respiratory rate 20, afebrile. LUNGS: Thin secretions. Bilateral breath sounds. Rhonchi HEART: Regular rhythm and rate. Normal S1, S2. ABDOMEN: Soft. GJ tube intact. EXTREMITIES: No edema. LABORATORY DATA: White count 10.7, hemoglobin 10.3. Sodium 142, potassium 3.5, BUN 49, creatinine 3.3. Albumin 2.3. TSH 2.4. IMPRESSION: 1. Euthyroid now on replacement therapy. 2. Sinus bradycardia, recovered. 3. Respiratory failure status post trach and removal of chest tube following hemothorax. 4. Anemia. 5. End-stage renal disease. 6. Acute on chronic diastolic congestive heart failure. PLAN: 1. No need to continue checking natriuretic peptide assays in this setting will be chronically elevated due to clinical parameters. 2. Hemodialysis with ultrafiltration for volume management. 3. Maintenance thyroid replacement. 4. Titrate antihypertensives based on clinical parameters. 5. Weaning efforts. Abel Stubbs M.D. DR: Lety JOB#: [id number] CC:
[2019-09-12] VITALS: BP 139/67
[2019-09-12] MEDS: HydrALAZINE 25mg tab NG SCH ×4 (01:05→17:53)
[2019-09-12] MEDS: Dyna-Hex 2% Top Sol 2oz TOPIC SCH (01:10)
[2019-09-12] MEDS: Albuterol/Ipratropium 3ml neb HHN SCH ×5 (03:20→20:06)
[2019-09-12 04:00] VITALS: BP 147/91
[2019-09-12 05:11] LABS: ALANINE AMINOTRANSFERASE 21 U/L (12-78); ALBUMIN 2.3 G/DL (3.4-5.0); ALBUMIN/GLOBULIN RATIO 0.5 (1.0-2.7); ALKALINE PHOSPHATASE 139 U/L (46-116); ANION GAP 14 mmol/L (5-15); ASPARTATE AMINO TRANSFERASE 43 U/L (15-37); BILIRUBIN,TOTAL 0.7 MG/DL (0.2-1.0); BLOOD UREA NITROGEN 57 mg/dL (7-18); CALCIUM 9.2 MG/DL (8.5-10.1); CARBON DIOXIDE 25 MMOL/L (21-32); CHLORIDE 106 MMOL/L (98-107); CREATININE 3.5 MG/DL (0.55-1.30); PHOSPHORUS 3.6 MG/DL (2.5-4.9); POTASSIUM 3.5 MMOL/L (3.5-5.1); SODIUM 145 MMOL/L (136-145)
[2019-09-12 05:12] LABS: BASOPHILS % (AUTO) 0.8 % (0.0-2.0); EOSINOPHILS % (AUTO) 1.1 % (0.0-3.0); HEMATOCRIT 30.2 % (37.0-47.0); LYMPHOCYTES % (AUTO) 29.2 % (20.0-45.0); MEAN CORPUSCULAR VOLUME 89 FL (80-99); MONOCYTES % (AUTO) 4.7 % (1.0-10.0); NEUTROPHILS % (AUTO) 64.2 % (45.0-75.0); PLATELET COUNT 374 K/UL (150-450); RED CELL DISTRIBUTION WIDTH 15.3 % (11.6-14.8); WHITE BLOOD COUNT 8.6 K/UL (4.8-10.8)
--- NOTE | 2019-09-12 06:29 | Hematology/Onc Progress Note ---
Assessment/Plan Assessment/Plan # Thrombocytopenia - potential causes multifactorial, evaluate liver and viral etiologies to begin, in this case due to sepsis with septic shock also with cirrhosis and liver disease --> Hep panel and HIV ordered -> neg --> US abd to evaluate for cirrhosis and hsm ordered --> reviewed --> Peripheral smear ordered to evaluate for blasts /schistocytes --> abx and other meds have been reviewed --> ok for ppx if plt >50k w/ either heparin or lovenox --> Transfuse if Plt < 20k and fever, or if Plt < 10k without fever --> okay for permacath change once plt better--> for 08/14 --> plt trend: 43-->83-->237k-->292-->341-->315-->388 -->444-->530-->252k-->344 # Anemia of chronic disease due to underlying chronic medical issues, multifactorial v Gi bleed --> Anemia workup has been ordered, rule out gi bleed --> No evidence of hemolysis is noted, peripheral smear has been reviewed. --> Hgb goal >7. Transfuse prn. --> Epogen has been started --> HOLD OFF IRON ferritin is >1000 --> Medications have been reviewed --> low threshold for gi evaluation in case has occult + --> hgb 9-->6.7-->9.2 -->10.5-->10.6 -->10.7-->10-->10.5-->9.8-->10.4-->9.5--> 3.6-->9.6-->9.7-->10-->10.3 --> blood tx: 08/11, 08/31 --> CT Chest pendig r/o hemothorax --> does show Confirmation of a large left hemothorax. Complete atelectasis of the left lower lobe and partial left upper lobe atelectasis demonstrated. Mild rightward shift of the heart and mediastinum. # Sepsis with shock. --> abx as per id, recs noted --> pressors as needed # Healthcare-associated pneumonia. --> recs reviewed --> abx: jung/micafungin-->jung --> 08/24 chest: moderate left pleural effusion # Severe protein-calorie malnutrition. --> nutritional support # End-stage renal disease --> had as renal hd --> with permacath # History of hypertension. --> per cards, now with Bradycardia. # Resp failure s/p vent/trach # HypoThyroid # Ngt feedings # Dvt ppx scd's The timing of this note does not necessarily reflect the time of the patient was seen. Greatly appreciate consultation. Subjective Constitutional: Denies: no symptoms, chills, fever, malaise, weakness, other HEENT: Denies: no symptoms, eye pain, blurred vision, tearing, double vision, ear pain, ear discharge, nose pain, nose congestion, throat pain, throat swelling, mouth pain, mouth swelling, other Cardiovascular: Denies: no symptoms, chest pain, edema, irregular heart rate, lightheadedness, palpitations, syncope, other Respiratory: Denies: no symptoms, cough, shortness of breath, SOB with excertion, SOB at rest, sputum, wheezing, other Gastrointestinal/Abdominal: Denies: no symptoms, abdomen distended, abdominal pain, black stools, tarry stools, blood in stool, constipated, diarrhea, difficulty swallowing, nausea, poor appetite, poor fluid intake, rectal bleeding , vomiting, other Genitourinary: Denies: no symptoms, burning, discharge, frequency, flank pain, hematuria, incontinence, pain, urgency, other Neurologic/Psychiatric: Denies: no symptoms, anxiety, depressed, emotional problems, headache, numbness, paresthesia, pre-existing deficit, seizure, tingling, tremors, weakness, other Endocrine: Denies: no symptoms, excessive sweating, flushing, intolerance to cold, intolerance to heat, increased hunger, increased thirst, increased urine, unexplained weight gain, unexplained weight loss, other Hematologic/Lymphatic: Denies: no symptoms, anemia, easy bleeding, easy bruising, adenopathy, other Allergies: Coded Allergies: VANCOMYCIN (Unverified Allergy, Unknown, 08/02/19) Subjective 08/11: no bleeding or chills, labs reviewed, no major bleeding, plt less than 50k 08/12: icu, s/p blood, hgb improved to 9.2, 08/14: icu, pending consent for thora and permacath, labs reviewed 08/15: new permacath placed, no bleeding, for hd, plt much improved, started lovenox sq 08/16: ett to be adjusted, bp on high end, micafungin started, possible bronch 08/17: weaning as per pulm, no events otherwise, labs noted 08/18: no events no bleeding, remains confused on vent, for hd 08/20: icu, failed to wean, labs reviewed, jung 08/21: resting in bed, no overnight events, labs reviewed 08/22: awake, confused, restraints, no overnight events 08/23: no events, no bleeding, on ppi bid 08/24: icu, failed to wean, labs reviewed 08/25: no overnight events, us chest, restraints, afebrile 08/26 difficult in weaning, nad, seen by surg, pulm labs noted 08/27 awake on restraints, thoracentesis for am, labs reviewed 08/29 no bleeding, no night sweats, no major changes, on ppi bid 08/30 no major events, remains on vent, no bleeding, dw pcp 08/31 hgb dropped to 3.6, has been transfused with prbc, in icu, dw Rn, ct chest pend 09/01 no major events, no bleeding, labs noted, hgb remains low, hgb 9.6 09/03 lethargic, left chest tube dry/intact, off abx, vent 09/04 remains on a vent, synthroid, labs reviewed 09/05 awake and alert, no acute events, hgb 9.8, no new orders 09/06 no bleeding or chills, labs noted, no major events overnight, dw rn 09/07 no events, no night sweats, no bleeding, no fc, remains agitated in the am 09/08 remains in the icu, trach was done, on vent, abx off, on epo 09/10 transferred to sdu, restraints, vent, labs reviewed 09/11 tube feeds have been ongoing, no f/c, labs reviewed Objective Objective Current Medications Medications (Trade) Dose Ordered Sig/Javier Route PRN Reason Start Time Stop Time Status Last Admin Dose Admin Acetaminophen (Tylenol) 650 mg Q4H PRN GT Mild Pain/Temp > 100.5 09/03/19 07:00 10/03/19 06:59 09/09/19 06:13 Acetylcysteine (Mucomyst) 100 mg Q4HRT N 08/31/19 19:00 11/29/19 18:59 09/12/19 03:20 Albuterol/ Ipratropium (Albuterol/ Ipratropium) 3 ml Q4HRT [facility] 09/11/19 11:00 09/16/19 10:59 09/12/19 03:20 Amlodipine Besylate (Norvasc) 5 mg BID NG 08/23/19 01:45 09/22/19 01:44 09/11/19 17:09 Atropine Sulfate (Atropine) 1 mg Q4H PRN IVP Per rx protocol 08/13/19 08:30 09/12/19 08:29 Chlorhexidine Gluconate (Nae-Hex 2%) 1 applic DAILY@1999 TOPIC 08/15/19 20:00 09/14/19 19:59 09/12/19 01:10 Dextrose (Dextrose 50%) 25 ml Q30M PRN IV Hypoglycemia 09/02/19 06:15 12/01/19 06:14 09/04/19 12:11 Dextrose (Dextrose 50%) 50 ml Q30M PRN IV Hypoglycemia 09/02/19 06:15 12/01/19 06:14 Hydralazine HCl (Apresoline) 10 mg Q4H PRN IV For High Blood Pressure 08/18/19 12:44 09/17/19 12:43 09/01/19 20:27 Hydralazine HCl (Apresoline) 25 mg Q6HR NG 08/23/19 06:00 09/22/19 05:59 09/12/19 06:21 Lansoprazole (Prevacid) 30 mg BID GT 08/19/19 09:00 09/18/19 08:59 09/11/19 17:09 Levothyroxine Sodium (Synthroid) 50 mcg DAILY@06 ORAL 08/25/19 06:30 09/24/19 06:29 09/12/19 06:22 Midazolam HCl 100 ml @ 0 mls/hr Q24H PRN IV Agitation 09/05/19 18:15 09/12/19 18:14 Last 24 Hour Vital Signs Date Time Temp Pulse Resp B/P (MAP) Pulse Ox O2 Delivery O2 Flow Rate FiO2 09/12/19 06:21 147/91 09/12/19 05:10 79 18 30 09/12/19 04:00 30 09/12/19 04:00 Mechanical Ventilator Mechanical Ventilator Mechanical Ventilator Mechanical Ventilator 09/12/19 04:00 84 09/12/19 04:00 97.2 86 20 147/91 (109) 100 09/12/19 03:20 84 18 100 Mechanical Ventilator 30 86 18 30 09/12/19 01:05 145/71 09/12/19 00:30 84 18 30 09/12/19 00:00 90 09/12/19 00:00 Mechanical Ventilator Mechanical Ventilator Mechanical Ventilator Mechanical Ventilator 09/12/19 00:00 30 09/12/19 00:00 97.8 84 18 139/67 (91) 99 09/11/19 23:26 88 20 100 Mechanical Ventilator 30 90 18 30 09/11/19 21:20 77 18 30 09/11/19 20:12 80 18 100 Mechanical Ventilator 30 90 18 30 09/11/19 20:00 97.7 75 18 145/71 (95) 100 09/11/19 20:00 75 09/11/19 20:00 Mechanical Ventilator Mechanical Ventilator Mechanical Ventilator Mechanical Ventilator 09/11/19 20:00 30 09/11/19 17:09 76 152/71 09/11/19 17:09 152/71 09/11/19 16:00 98.0 76 20 152/71 (98) 99 09/11/19 16:00 Mechanical Ventilator Mechanical Ventilator Mechanical Ventilator Mechanical Ventilator 09/11/19 16:00 30 09/11/19 15:20 78 09/11/19 15:00 82 19 100 Mechanical Ventilator 30 90 20 30 09/11/19 13:57 72 20 124/74 (91) 99 09/11/19 13:05 82 23 30 09/11/19 12:02 143/60 09/11/19 12:00 30 09/11/19 12:00 Mechanical Ventilator Mechanical Ventilator Mechanical Ventilator Mechanical Ventilator 09/11/19 11:35 83 09/11/19 11:25 97.7 73 20 143/60 (87) 99 09/11/19 11:00 82 19 100 Mechanical Ventilator 30 84 22 30 09/11/19 09:05 74 18 30 09/11/19 08:42 76 142/78 09/11/19 08:00 30 09/11/19 08:00 Mechanical Ventilator Mechanical Ventilator Mechanical Ventilator Mechanical Ventilator 09/11/19 07:40 97.8 76 20 142/78 (99) 100 09/11/19 07:39 74 09/11/19 07:10 93 18 30 09/11/19 05:57 162/76 09/11/19 05:05 78 20 30 09/11/19 04:00 30 09/11/19 04:00 Mechanical Ventilator Mechanical Ventilator Mechanical Ventilator Mechanical Ventilator 09/11/19 04:00 78 09/11/19 04:00 97.7 78 20 162/76 (104) 98 09/11/19 02:44 71 18 30 09/11/19 01:11 74 20 30 09/11/19 00:26 152/75 09/11/19 00:00 Mechanical Ventilator Mechanical Ventilator Mechanical Ventilator Mechanical Ventilator 09/11/19 00:00 30 09/11/19 00:00 97.3 80 18 152/75 (100) 99 09/11/19 00:00 82 09/10/19 23:45 72 18 100 Mechanical Ventilator 40 09/10/19 22:44 80 18 100 Mechanical Ventilator 30 82 18 30 09/10/19 20:32 72 18 30 09/10/19 20:00 Mechanical Ventilator Mechanical Ventilator Mechanical Ventilator Mechanical Ventilator 09/10/19 20:00 30 09/10/19 20:00 97.7 73 18 142/76 (98) 99 09/10/19 20:00 73 09/10/19 18:59 81 19 100 Mechanical Ventilator 30 77 18 30 09/10/19 18:48 82 148/78 09/10/19 18:48 148/78 09/10/19 18:46 82 148/78 (101) 09/10/19 17:07 70 18 100 Mechanical Ventilator 30 80 18 30 09/10/19 16:00 83 17 146/67 (93) 100 09/10/19 16:00 83 09/10/19 16:00 Mechanical Ventilator Mechanical Ventilator Mechanical Ventilator Mechanical Ventilator 09/10/19 16:00 30 09/10/19 15:02 74 19 100 Mechanical Ventilator 30 80 18 30 09/10/19 15:00 71 17 146/69 (94) 100 09/10/19 14:00 72 16 141/64 (89) 100 09/10/19 13:14 72 18 30 09/10/19 13:00 76 13 136/63 (87) 100 09/10/19 12:38 145/58 09/10/19 12:08 97.9 80 22 145/58 (87) 100 09/10/19 12:00 30 09/10/19 12:00 Mechanical Ventilator Mechanical Ventilator Mechanical Ventilator Mechanical Ventilator 09/10/19 11:12 74 18 100 Mechanical Ventilator 30 80 18 30 09/10/19 11:12 73 09/10/19 11:00 74 14 143/66 (91) 100 09/10/19 10:03 76 18 139/62 (87) 100 09/10/19 09:21 79 18 30 09/10/19 09:00 80 12 145/67 (93) 100 09/10/19 08:49 85 148/62 09/10/19 08:00 Mechanical Ventilator Mechanical Ventilator Mechanical Ventilator Mechanical Ventilator 09/10/19 08:00 30 09/10/19 08:00 98.0 85 17 148/62 (90) 100 09/10/19 07:48 84 09/10/19 07:24 78 18 100 Mechanical Ventilator 30 81 18 30 09/10/19 07:00 78 18 130/67 (88) 100 Intake and Output 09/11/19 09/12/19 19:00 07:00 Intake Total 535 ml Balance 535 ml Intake Free Water 150 ml Tube Feeding 385 ml # Bowel Movements 1 Labs Test 09/10/19 03:50 09/11/19 03:39 09/11/19 06:18 09/12/19 04:00 White Blood Count 12.4 K/UL (4.8-10.8) 10.7 K/UL (4.8-10.8) 8.6 K/UL (4.8-10.8) Red Blood Count 3.33 M/UL (4.20-5.40) 3.41 M/UL (4.20-5.40) 3.40 M/UL (4.20-5.40) Hemoglobin 10.0 G/DL (12.0-16.0) 10.3 G/DL (12.0-16.0) 10.0 G/DL (12.0-16.0) Hematocrit 29.5 % (37.0-47.0) 30.4 % (37.0-47.0) 30.2 % (37.0-47.0) Mean Corpuscular Volume 89 FL (80-99) 89 FL (80-99) 89 FL (80-99) Mean Corpuscular Hemoglobin 30.1 PG (27.0-31.0) 30.1 PG (27.0-31.0) 29.5 PG (27.0-31.0) Mean Corpuscular Hemoglobin Concent 33.9 G/DL (32.0-36.0) 33.8 G/DL (32.0-36.0) 33.2 G/DL (32.0-36.0) Red Cell Distribution Width 14.8 % (11.6-14.8) 15.4 % (11.6-14.8) 15.3 % (11.6-14.8) Platelet Count 327 K/UL (150-450) 344 K/UL (150-450) 374 K/UL (150-450) Mean Platelet Volume 4.4 FL (6.5-10.1) 4.7 FL (6.5-10.1) 4.5 FL (6.5-10.1) Neutrophils (%) (Auto) 76.7 % (45.0-75.0) 77.3 % (45.0-75.0) 64.2 % (45.0-75.0) Lymphocytes (%) (Auto) 18.3 % (20.0-45.0) 17.5 % (20.0-45.0) 29.2 % (20.0-45.0) Monocytes (%) (Auto) 4.3 % (1.0-10.0) 3.8 % (1.0-10.0) 4.7 % (1.0-10.0) Eosinophils (%) (Auto) 0.4 % (0.0-3.0) 1.0 % (0.0-3.0) 1.1 % (0.0-3.0) Basophils (%) (Auto) 0.5 % (0.0-2.0) 0.4 % (0.0-2.0) 0.8 % (0.0-2.0) Sodium Level 141 MMOL/L (136-145) 142 MMOL/L (136-145) 145 MMOL/L (136-145) Potassium Level 2.9 MMOL/L (3.5-5.1) 3.5 MMOL/L (3.5-5.1) 3.5 MMOL/L (3.5-5.1) Chloride Level 103 MMOL/L (98-107) 104 MMOL/L (98-107) 106 MMOL/L (98-107) Carbon Dioxide Level 31 MMOL/L (21-32) 31 MMOL/L (21-32) 25 MMOL/L (21-32) Anion Gap 7 mmol/L (5-15) 7 mmol/L (5-15) 14 mmol/L (5-15) Blood Urea Nitrogen 41 mg/dL (7-18) 49 mg/dL (7-18) 57 mg/dL (7-18) Creatinine 3.1 MG/DL (0.55-1.30) 3.3 MG/DL (0.55-1.30) 3.5 MG/DL (0.55-1.30) Estimat Glomerular Filtration Rate 14.5 mL/min (>60) 13.5 mL/min (>60) 12.6 mL/min (>60) Glucose Level 153 MG/DL (74-106) 137 MG/DL (74-106) 126 MG/DL (74-106) Calcium Level 9.1 MG/DL (8.5-10.1) 8.8 MG/DL (8.5-10.1) 9.2 MG/DL (8.5-10.1) Phosphorus Level 2.4 MG/DL (2.5-4.9) 3.8 MG/DL (2.5-4.9) 3.6 MG/DL (2.5-4.9) Magnesium Level 2.0 MG/DL (1.8-2.4) 2.0 MG/DL (1.8-2.4) 2.1 MG/DL (1.8-2.4) Total Bilirubin 0.7 MG/DL (0.2-1.0) 0.6 MG/DL (0.2-1.0) 0.7 MG/DL (0.2-1.0) Aspartate Amino Transf (AST/SGOT) 30 U/L (15-37) 36 U/L (15-37) 43 U/L (15-37) Alanine Aminotransferase (ALT/SGPT) 7 U/L (12-78) 11 U/L (12-78) 21 U/L (12-78) Alkaline Phosphatase 148 U/L (46-116) 163 U/L (46-116) 139 U/L (46-116) C-Reactive Protein, Quantitative 25.4 mg/dL (0.00-0.90) 34.2 mg/dL (0.00-0.90) Pro-B-Type Natriuretic Peptide > 48253 pg/mL (0-125) > 02624 pg/mL (0-125) Total Protein 7.0 G/DL (6.4-8.2) 7.1 G/DL (6.4-8.2) 7.0 G/DL (6.4-8.2) Albumin 2.4 G/DL (3.4-5.0) 2.3 G/DL (3.4-5.0) 2.3 G/DL (3.4-5.0) Globulin 4.6 g/dL 4.8 g/dL 4.7 g/dL Albumin/Globulin Ratio 0.5 (1.0-2.7) 0.5 (1.0-2.7) 0.5 (1.0-2.7) Thyroid Stimulating Hormone (TSH) 2.434 uiU/mL (0.358-3.740) Free Thyroxine 1.36 NG/DL (0.76-1.46) Height (Feet): 5 Height (Inches): 4.00 Weight (Pounds): 112 Objective gen: nad pulm: on trach+ / vent, decreased breath sounds left, chest tube+ cv: rrr, no gmr abd: sfot, nt, nd ++ gt ext: no cce Gio Rob MD Sep 12, 2019 06:29
--- NOTE | 2019-09-12 07:33 | General Progress Note ---
Assessment/Plan Problem List: (1) Failure to thrive (0-17) ICD Codes: R62.51 - Failure to thrive (0-17) SNOMED: 717279821 (2) Hypertensive kidney disease ICD Codes: I12.9 - Hypertensive chronic kidney disease with stage 1 through stage 4 chronic kidney disease, or unspecified chronic kidney disease SNOMED: 79307014 (3) Pneumonia ICD Codes: J18.9 - Pneumonia, unspecified organism SNOMED: 549485303 Qualifiers: Qualified Codes: J18.9 - Pneumonia, unspecified organism (4) ESRD (end stage renal disease) ICD Codes: N18.6 - End stage renal disease SNOMED: 27310837 (5) Septic arthritis ICD Codes: M00.9 - Pyogenic arthritis, unspecified SNOMED: 382838514 (6) Thrombocytopenia ICD Codes: D69.6 - Thrombocytopenia, unspecified SNOMED: 431832202 (7) Hypotension ICD Codes: I95.9 - Hypotension, unspecified SNOMED: 75824906 Qualifiers: Qualified Codes: I95.3 - Hypotension of hemodialysis (8) Malnutrition ICD Codes: E46 - Unspecified protein-calorie malnutrition SNOMED: 79656146 Status: stable, not improved, unchanged, deteriorating Assessment/Plan: Continue ventilatory support. Respiratory treatments and suctioning. Monitor chest x-ray. Antibiotics per ID. Hemodialysis per renal. Monitor labs. Discharge planning. Subjective ROS Limited/Unobtainable: No Constitutional: Reports: malaise, weakness HEENT: Reports: no symptoms Cardiovascular: Reports: no symptoms Respiratory: Reports: no symptoms Gastrointestinal/Abdominal: Reports: difficulty swallowing Genitourinary: Reports: no symptoms Neurologic/Psychiatric: Reports: pre-existing deficit Endocrine: Reports: no symptoms Hematologic/Lymphatic: Reports: anemia Allergies: Coded Allergies: VANCOMYCIN (Unverified Allergy, Unknown, 08/02/19) All Systems: reviewed and negative except above Subjective stable in the stepdown unit. Case was discussed with the night nurse.stable. awake and alert. no distress. d/w staff. no events last night. Patient is resting on the ventilator. She opens her eyes. No distress. Objective Last 24 Hour Vital Signs Date Time Temp Pulse Resp B/P (MAP) Pulse Ox O2 Delivery O2 Flow Rate FiO2 09/12/19 06:59 83 23 100 Mechanical Ventilator 30 85 24 30 09/12/19 06:21 147/91 09/12/19 05:10 79 18 30 09/12/19 04:00 30 09/12/19 04:00 Mechanical Ventilator Mechanical Ventilator Mechanical Ventilator Mechanical Ventilator 09/12/19 04:00 84 09/12/19 04:00 97.2 86 20 147/91 (109) 100 09/12/19 03:20 84 18 100 Mechanical Ventilator 30 86 18 30 09/12/19 01:05 145/71 09/12/19 00:30 84 18 30 09/12/19 00:00 90 09/12/19 00:00 Mechanical Ventilator Mechanical Ventilator Mechanical Ventilator Mechanical Ventilator 09/12/19 00:00 30 09/12/19 00:00 97.8 84 18 139/67 (91) 99 09/11/19 23:26 88 20 100 Mechanical Ventilator 30 90 18 30 09/11/19 21:20 77 18 30 09/11/19 20:12 80 18 100 Mechanical Ventilator 30 90 18 30 09/11/19 20:00 97.7 75 18 145/71 (95) 100 09/11/19 20:00 75 09/11/19 20:00 Mechanical Ventilator Mechanical Ventilator Mechanical Ventilator Mechanical Ventilator 09/11/19 20:00 30 09/11/19 17:09 76 152/71 09/11/19 17:09 152/71 09/11/19 16:00 98.0 76 20 152/71 (98) 99 09/11/19 16:00 Mechanical Ventilator Mechanical Ventilator Mechanical Ventilator Mechanical Ventilator 09/11/19 16:00 30 09/11/19 15:20 78 09/11/19 15:00 82 19 100 Mechanical Ventilator 30 90 20 30 09/11/19 13:57 72 20 124/74 (91) 99 09/11/19 13:05 82 23 30 09/11/19 12:02 143/60 09/11/19 12:00 30 09/11/19 12:00 Mechanical Ventilator Mechanical Ventilator Mechanical Ventilator Mechanical Ventilator 09/11/19 11:35 83 09/11/19 11:25 97.7 73 20 143/60 (87) 99 09/11/19 11:00 82 19 100 Mechanical Ventilator 30 84 22 30 09/11/19 09:05 74 18 30 09/11/19 08:42 76 142/78 09/11/19 08:00 30 09/11/19 08:00 Mechanical Ventilator Mechanical Ventilator Mechanical Ventilator Mechanical Ventilator 09/11/19 07:40 97.8 76 20 142/78 (99) 100 09/11/19 07:39 74 Intake and Output 09/11/19 09/12/19 19:00 07:00 Intake Total 570 ml 485 ml Output Total 200 ml Balance 570 ml 285 ml Intake Free Water 150 ml 100 ml Tube Feeding 420 ml 385 ml Output Urine Total 200 ml # Bowel Movements 1 Laboratory Tests 09/12/19 04:00: White Blood Count 8.6, Red Blood Count 3.40L, Hemoglobin 10.0L, Hematocrit 30.2L , Mean Corpuscular Volume 89, Mean Corpuscular Hemoglobin 29.5, Mean Corpuscular Hemoglobin Concent 33.2, Red Cell Distribution Width 15.3H, Platelet Count 374, Mean Platelet Volume 4.5L, Neutrophils (%) (Auto) 64.2, Lymphocytes (%) (Auto) 29.2, Monocytes (%) (Auto) 4.7, Eosinophils (%) (Auto) 1.1, Basophils (%) (Auto) 0.8, Sodium Level 145, Potassium Level 3.5, Chloride Level 106, Carbon Dioxide Level 25, Anion Gap 14, Blood Urea Nitrogen 57H, Creatinine 3.5H, Estimat Glomerular Filtration Rate 12.6, Glucose Level 126H, Calcium Level 9.2, Phosphorus Level 3.6, Magnesium Level 2.1, Total Bilirubin 0.7, Aspartate Amino Transf (AST/SGOT) 43H, Alanine Aminotransferase (ALT/SGPT) 21, Alkaline Phosphatase 139H, Total Protein 7.0, Albumin 2.3L, Globulin 4.7, Albumin/Globulin Ratio 0.5L Height (Feet): 5 Height (Inches): 4.00 Weight (Pounds): 112 Objective General Appearance: WD/WN, awake/moaning. Neck: supple +trach Cardiovascular: normal rate Respiratory/Chest: rhonchi - bilaterally Abdomen: normal bowel sounds, non tender, soft, no organomegaly Edema: no edema noted Arm (L), no edema noted Arm (R), no edema noted Leg (L), no edema noted Leg (R), no edema noted Pedal (L), no edema noted Pedal (R), no edema noted Generalized Neurologic: disoriented, aphasia Uomoto,Nate M. MD Sep 12, 2019 07:33
--- NOTE | 2019-09-12 07:59 | General Progress Note ---
Assessment/Plan Problem List: (1) Hypothyroid ICD Codes: E03.9 - Hypothyroidism, unspecified SNOMED: 60186934 (2) ESRD (end stage renal disease) on dialysis ICD Codes: N18.6 - End stage renal disease; Z99.2 - Dependence on renal dialysis SNOMED: 765880851 (3) Hypotension ICD Codes: I95.9 - Hypotension, unspecified SNOMED: 95529275 Qualifiers: Qualified Codes: I95.3 - Hypotension of hemodialysis (4) Pneumonia ICD Codes: J18.9 - Pneumonia, unspecified organism SNOMED: 455056742 Qualifiers: Qualified Codes: J18.9 - Pneumonia, unspecified organism (5) Diabetes mellitus ICD Codes: E11.9 - Type 2 diabetes mellitus without complications SNOMED: 89697511 Status: stable, not improved, unchanged, deteriorating Assessment/Plan: TSH is at target now continue Levothyroxine IV 50 mcg daily continue glucose monitoring without insulin coverage hypoglycemia protocol in order Subjective ROS Limited/Unobtainable: Yes Allergies: Coded Allergies: VANCOMYCIN (Unverified Allergy, Unknown, 08/02/19) Subjective events noted interval notes reviewed glucose values are stable TSH normalized Item Value Date Time Bedside Blood Glucose 126 mg/dl H 09/12/19 0600 Bedside Blood Glucose 103 mg/dl 09/11/19 1800 Bedside Blood Glucose 95 mg/dl 09/11/19 1134 Bedside Blood Glucose 110 mg/dl 09/11/19 0600 Objective Last 24 Hour Vital Signs Date Time Temp Pulse Resp B/P (MAP) Pulse Ox O2 Delivery O2 Flow Rate FiO2 09/12/19 06:59 83 23 100 Mechanical Ventilator 30 85 24 30 09/12/19 06:21 147/91 09/12/19 05:10 79 18 30 09/12/19 04:00 30 09/12/19 04:00 Mechanical Ventilator Mechanical Ventilator Mechanical Ventilator Mechanical Ventilator 09/12/19 04:00 84 09/12/19 04:00 97.2 86 20 147/91 (109) 100 09/12/19 03:20 84 18 100 Mechanical Ventilator 30 86 18 30 09/12/19 01:05 145/71 09/12/19 00:30 84 18 30 09/12/19 00:00 90 09/12/19 00:00 Mechanical Ventilator Mechanical Ventilator Mechanical Ventilator Mechanical Ventilator 09/12/19 00:00 30 09/12/19 00:00 97.8 84 18 139/67 (91) 99 09/11/19 23:26 88 20 100 Mechanical Ventilator 30 90 18 30 09/11/19 21:20 77 18 30 09/11/19 20:12 80 18 100 Mechanical Ventilator 30 90 18 30 09/11/19 20:00 97.7 75 18 145/71 (95) 100 09/11/19 20:00 75 09/11/19 20:00 Mechanical Ventilator Mechanical Ventilator Mechanical Ventilator Mechanical Ventilator 09/11/19 20:00 30 09/11/19 17:09 76 152/71 09/11/19 17:09 152/71 09/11/19 16:00 98.0 76 20 152/71 (98) 99 09/11/19 16:00 Mechanical Ventilator Mechanical Ventilator Mechanical Ventilator Mechanical Ventilator 09/11/19 16:00 30 09/11/19 15:20 78 09/11/19 15:00 82 19 100 Mechanical Ventilator 30 90 20 30 09/11/19 13:57 72 20 124/74 (91) 99 09/11/19 13:05 82 23 30 09/11/19 12:02 143/60 09/11/19 12:00 30 09/11/19 12:00 Mechanical Ventilator Mechanical Ventilator Mechanical Ventilator Mechanical Ventilator 09/11/19 11:35 83 09/11/19 11:25 97.7 73 20 143/60 (87) 99 09/11/19 11:00 82 19 100 Mechanical Ventilator 30 84 22 30 09/11/19 09:05 74 18 30 09/11/19 08:42 76 142/78 09/11/19 08:00 30 09/11/19 08:00 Mechanical Ventilator Mechanical Ventilator Mechanical Ventilator Mechanical Ventilator Intake and Output 09/11/19 09/12/19 19:00 07:00 Intake Total 570 ml 485 ml Output Total 200 ml Balance 570 ml 285 ml Intake Free Water 150 ml 100 ml Tube Feeding 420 ml 385 ml Output Urine Total 200 ml # Bowel Movements 1 1 Laboratory Tests 09/12/19 04:00: White Blood Count 8.6, Red Blood Count 3.40L, Hemoglobin 10.0L, Hematocrit 30.2L , Mean Corpuscular Volume 89, Mean Corpuscular Hemoglobin 29.5, Mean Corpuscular Hemoglobin Concent 33.2, Red Cell Distribution Width 15.3H, Platelet Count 374, Mean Platelet Volume 4.5L, Neutrophils (%) (Auto) 64.2, Lymphocytes (%) (Auto) 29.2, Monocytes (%) (Auto) 4.7, Eosinophils (%) (Auto) 1.1, Basophils (%) (Auto) 0.8, Sodium Level 145, Potassium Level 3.5, Chloride Level 106, Carbon Dioxide Level 25, Anion Gap 14, Blood Urea Nitrogen 57H, Creatinine 3.5H, Estimat Glomerular Filtration Rate 12.6, Glucose Level 126H, Calcium Level 9.2, Phosphorus Level 3.6, Magnesium Level 2.1, Total Bilirubin 0.7, Aspartate Amino Transf (AST/SGOT) 43H, Alanine Aminotransferase (ALT/SGPT) 21, Alkaline Phosphatase 139H, Total Protein 7.0, Albumin 2.3L, Globulin 4.7, Albumin/Globulin Ratio 0.5L Height (Feet): 5 Height (Inches): 4.00 Weight (Pounds): 112 General Appearance: no apparent distress Neck: normal alignment Cardiovascular: normal rate Respiratory/Chest: lungs clear Abdomen: normal bowel sounds Objective Current Medications Medications (Trade) Dose Ordered Sig/Javier Route PRN Reason Start Time Stop Time Status Last Admin Dose Admin Acetaminophen (Tylenol) 650 mg Q4H PRN GT Mild Pain/Temp > 100.5 09/03/19 07:00 10/03/19 06:59 09/09/19 06:13 Acetylcysteine (Mucomyst) 100 mg Q4HRT [facility] 08/31/19 19:00 11/29/19 18:59 09/12/19 06:59 Albuterol/ Ipratropium (Albuterol/ Ipratropium) 3 ml Q4HRT [facility] 09/11/19 11:00 09/16/19 10:59 09/12/19 06:59 Amlodipine Besylate (Norvasc) 5 mg BID 08/23/19 01:45 09/22/19 01:44 09/11/19 17:09 Atropine Sulfate (Atropine) 1 mg Q4H PRN IVP Per rx protocol 08/13/19 08:30 09/12/19 08:29 Chlorhexidine Gluconate (Nae-Hex 2%) 1 applic DAILY@1999 TOPIC 08/15/19 20:00 09/14/19 19:59 09/12/19 01:10 Dextrose (Dextrose 50%) 25 ml Q30M PRN IV Hypoglycemia 09/02/19 06:15 12/01/19 06:14 09/04/19 12:11 Dextrose (Dextrose 50%) 50 ml Q30M PRN IV Hypoglycemia 09/02/19 06:15 12/01/19 06:14 Hydralazine HCl (Apresoline) 10 mg Q4H PRN IV For High Blood Pressure 08/18/19 12:44 09/17/19 12:43 09/01/19 20:27 Hydralazine HCl (Apresoline) 25 mg Q6HR NG 08/23/19 06:00 09/22/19 05:59 09/12/19 06:21 Lansoprazole (Prevacid) 30 mg BID GT 08/19/19 09:00 09/18/19 08:59 09/11/19 17:09 Levothyroxine Sodium (Synthroid) 50 mcg DAILY@0630 ORAL 08/25/19 06:30 09/24/19 06:29 09/12/19 06:22 Midazolam HCl 100 ml @ 0 mls/hr Q24H PRN IV Agitation 09/05/19 18:15 09/12/19 18:14 Antonio Jacome MD Sep 12, 2019 07:59
[2019-09-12 08:00] VITALS: BP 147/76
--- NOTE | 2019-09-12 09:27 | Critical Care Progress Note ---
Assessment/Plan Assessment/Plan respiratory failure hemoptysis resolved hypoxemia chronic renal failure toxic met encephalopathy severe protein calorie malnutrition cachexia left lung whiteout/collapse, improved with intubation s/p intubation anemia ? blood loss pulmonary edema with elevated BNP + pleural effusion ? hemothorax s/p CT placement and removal s/p trach PLAN trach care monitor for bleeding monitor effusion care noted and reviewed monitor ins and outs reviewed care and continue to monitor unable to wean off vent at present prognosis poor overall keep negative and monitor osmotic pressures nontoxic close follow up discussed elevated head and monitor ROM watch fluid status and keep negative nutrition and monitor residuals isolation as needed off load as able and monitor skin exam ROM as able and monitor contractures impression, plan, and exam edited and reviewed in detail care discussed with ems driver - Subjective Interval Events: in ALYSSA on vent events reviewed and discussed ROS Limited/Unobtainable: Yes Condition: unchanged EKG Rhythm: Sinus Rhythm Residuals: minimal Tube Feeding Tolerated: yes I&O: Intake and Output 09/11/19 09/12/19 19:00 07:00 Intake Total 570 ml 485 ml Output Total 200 ml Balance 570 ml 285 ml Intake Free Water 150 ml 100 ml Tube Feeding 420 ml 385 ml Output Urine Total 200 ml # Bowel Movements 1 1 Critical Care - Objective ET-Tube: 7.0 ET Position: 19 Last 24 Hour Vital Signs Date Time Temp Pulse Resp B/P (MAP) Pulse Ox O2 Delivery O2 Flow Rate FiO2 09/12/19 06:59 83 23 100 Mechanical Ventilator 30 85 24 30 09/12/19 06:21 147/91 09/12/19 05:10 79 18 30 09/12/19 04:00 30 09/12/19 04:00 Mechanical Ventilator Mechanical Ventilator Mechanical Ventilator Mechanical Ventilator 09/12/19 04:00 84 09/12/19 04:00 97.2 86 20 147/91 (109) 100 09/12/19 03:20 84 18 100 Mechanical Ventilator 30 86 18 30 09/12/19 01:05 145/71 09/12/19 00:30 84 18 30 09/12/19 00:00 90 09/12/19 00:00 Mechanical Ventilator Mechanical Ventilator Mechanical Ventilator Mechanical Ventilator 09/12/19 00:00 30 09/12/19 00:00 97.8 84 18 139/67 (91) 99 09/11/19 23:26 88 20 100 Mechanical Ventilator 30 90 18 30 09/11/19 21:20 77 18 30 09/11/19 20:12 80 18 100 Mechanical Ventilator 30 90 18 30 09/11/19 20:00 97.7 75 18 145/71 (95) 100 09/11/19 20:00 75 09/11/19 20:00 Mechanical Ventilator Mechanical Ventilator Mechanical Ventilator Mechanical Ventilator 09/11/19 20:00 30 09/11/19 17:09 76 152/71 09/11/19 17:09 152/71 09/11/19 16:00 98.0 76 20 152/71 (98) 99 09/11/19 16:00 Mechanical Ventilator Mechanical Ventilator Mechanical Ventilator Mechanical Ventilator 09/11/19 16:00 30 09/11/19 15:20 78 09/11/19 15:00 82 19 100 Mechanical Ventilator 30 90 20 30 09/11/19 13:57 72 20 124/74 (91) 99 09/11/19 13:05 82 23 30 09/11/19 12:02 143/60 09/11/19 12:00 30 09/11/19 12:00 Mechanical Ventilator Mechanical Ventilator Mechanical Ventilator Mechanical Ventilator 09/11/19 11:35 83 09/11/19 11:25 97.7 73 20 143/60 (87) 99 09/11/19 11:00 82 19 100 Mechanical Ventilator 30 84 22 30 Labs: Labs Test 09/10/19 03:50 09/11/19 03:39 09/11/19 06:18 09/12/19 04:00 White Blood Count 12.4 K/UL (4.8-10.8) 10.7 K/UL (4.8-10.8) 8.6 K/UL (4.8-10.8) Red Blood Count 3.33 M/UL (4.20-5.40) 3.41 M/UL (4.20-5.40) 3.40 M/UL (4.20-5.40) Hemoglobin 10.0 G/DL (12.0-16.0) 10.3 G/DL (12.0-16.0) 10.0 G/DL (12.0-16.0) Hematocrit 29.5 % (37.0-47.0) 30.4 % (37.0-47.0) 30.2 % (37.0-47.0) Mean Corpuscular Volume 89 FL (80-99) 89 FL (80-99) 89 FL (80-99) Mean Corpuscular Hemoglobin 30.1 PG (27.0-31.0) 30.1 PG (27.0-31.0) 29.5 PG (27.0-31.0) Mean Corpuscular Hemoglobin Concent 33.9 G/DL (32.0-36.0) 33.8 G/DL (32.0-36.0) 33.2 G/DL (32.0-36.0) Red Cell Distribution Width 14.8 % (11.6-14.8) 15.4 % (11.6-14.8) 15.3 % (11.6-14.8) Platelet Count 327 K/UL (150-450) 344 K/UL (150-450) 374 K/UL (150-450) Mean Platelet Volume 4.4 FL (6.5-10.1) 4.7 FL (6.5-10.1) 4.5 FL (6.5-10.1) Neutrophils (%) (Auto) 76.7 % (45.0-75.0) 77.3 % (45.0-75.0) 64.2 % (45.0-75.0) Lymphocytes (%) (Auto) 18.3 % (20.0-45.0) 17.5 % (20.0-45.0) 29.2 % (20.0-45.0) Monocytes (%) (Auto) 4.3 % (1.0-10.0) 3.8 % (1.0-10.0) 4.7 % (1.0-10.0) Eosinophils (%) (Auto) 0.4 % (0.0-3.0) 1.0 % (0.0-3.0) 1.1 % (0.0-3.0) Basophils (%) (Auto) 0.5 % (0.0-2.0) 0.4 % (0.0-2.0) 0.8 % (0.0-2.0) Sodium Level 141 MMOL/L (136-145) 142 MMOL/L (136-145) 145 MMOL/L (136-145) Potassium Level 2.9 MMOL/L (3.5-5.1) 3.5 MMOL/L (3.5-5.1) 3.5 MMOL/L (3.5-5.1) Chloride Level 103 MMOL/L (98-107) 104 MMOL/L (98-107) 106 MMOL/L (98-107) Carbon Dioxide Level 31 MMOL/L (21-32) 31 MMOL/L (21-32) 25 MMOL/L (21-32) Anion Gap 7 mmol/L (5-15) 7 mmol/L (5-15) 14 mmol/L (5-15) Blood Urea Nitrogen 41 mg/dL (7-18) 49 mg/dL (7-18) 57 mg/dL (7-18) Creatinine 3.1 MG/DL (0.55-1.30) 3.3 MG/DL (0.55-1.30) 3.5 MG/DL (0.55-1.30) Estimat Glomerular Filtration Rate 14.5 mL/min (>60) 13.5 mL/min (>60) 12.6 mL/min (>60) Glucose Level 153 MG/DL (74-106) 137 MG/DL (74-106) 126 MG/DL (74-106) Calcium Level 9.1 MG/DL (8.5-10.1) 8.8 MG/DL (8.5-10.1) 9.2 MG/DL (8.5-10.1) Phosphorus Level 2.4 MG/DL (2.5-4.9) 3.8 MG/DL (2.5-4.9) 3.6 MG/DL (2.5-4.9) Magnesium Level 2.0 MG/DL (1.8-2.4) 2.0 MG/DL (1.8-2.4) 2.1 MG/DL (1.8-2.4) Total Bilirubin 0.7 MG/DL (0.2-1.0) 0.6 MG/DL (0.2-1.0) 0.7 MG/DL (0.2-1.0) Aspartate Amino Transf (AST/SGOT) 30 U/L (15-37) 36 U/L (15-37) 43 U/L (15-37) Alanine Aminotransferase (ALT/SGPT) 7 U/L (12-78) 11 U/L (12-78) 21 U/L (12-78) Alkaline Phosphatase 148 U/L (46-116) 163 U/L (46-116) 139 U/L (46-116) C-Reactive Protein, Quantitative 25.4 mg/dL (0.00-0.90) 34.2 mg/dL (0.00-0.90) Pro-B-Type Natriuretic Peptide > 34474 pg/mL (0-125) > 28466 pg/mL (0-125) Total Protein 7.0 G/DL (6.4-8.2) 7.1 G/DL (6.4-8.2) 7.0 G/DL (6.4-8.2) Albumin 2.4 G/DL (3.4-5.0) 2.3 G/DL (3.4-5.0) 2.3 G/DL (3.4-5.0) Globulin 4.6 g/dL 4.8 g/dL 4.7 g/dL Albumin/Globulin Ratio 0.5 (1.0-2.7) 0.5 (1.0-2.7) 0.5 (1.0-2.7) Thyroid Stimulating Hormone (TSH) 2.434 uiU/mL (0.358-3.740) Free Thyroxine 1.36 NG/DL (0.76-1.46) Objective: WDWN NAD trach in place reduced breath sounds scattered rhonchi; [id number] without MRG NABS nontender no HSM no CCE contractures feeding tube in place no distention reduced LOC and weak nonfocal cachectic reviewed and edited Accucheck: 126 Malcolm Cruz MD Sep 12, 2019 09:27
--- NOTE | 2019-09-12 10:47 | Infectious Diseases Prog Note ---
Assessment/Plan Assessment/Plan antibiotics : none A 1. jarad albicans fungemia s/p rx 2. right shoulder septic arthritis with staph aureus s/p rx 3. renal failure 4. thrombocytopenia resolved 7. diabetes mellitus 8. hypertension 9. respiratory failure P 1. observe off antibiotics Subjective ROS Limited/Unobtainable: Yes Allergies: Coded Allergies: VANCOMYCIN (Unverified Allergy, Unknown, 08/02/19) Objective Vital Signs Last 24 Hour Vital Signs Date Time Temp Pulse Resp B/P (MAP) Pulse Ox O2 Delivery O2 Flow Rate FiO2 09/12/19 09:36 79 18 30 09/12/19 09:31 83 147/91 09/12/19 06:59 83 23 100 Mechanical Ventilator 30 85 24 30 09/12/19 06:21 147/91 09/12/19 05:10 79 18 30 09/12/19 04:00 30 09/12/19 04:00 Mechanical Ventilator Mechanical Ventilator Mechanical Ventilator Mechanical Ventilator 09/12/19 04:00 84 09/12/19 04:00 97.2 86 20 147/91 (109) 100 09/12/19 03:20 84 18 100 Mechanical Ventilator 30 86 18 30 09/12/19 01:05 145/71 09/12/19 00:30 84 18 30 09/12/19 00:00 90 09/12/19 00:00 Mechanical Ventilator Mechanical Ventilator Mechanical Ventilator Mechanical Ventilator 09/12/19 00:00 30 09/12/19 00:00 97.8 84 18 139/67 (91) 99 09/11/19 23:26 88 20 100 Mechanical Ventilator 30 90 18 30 09/11/19 21:20 77 18 30 09/11/19 20:12 80 18 100 Mechanical Ventilator 30 90 18 30 09/11/19 20:00 97.7 75 18 145/71 (95) 100 09/11/19 20:00 75 09/11/19 20:00 Mechanical Ventilator Mechanical Ventilator Mechanical Ventilator Mechanical Ventilator 09/11/19 20:00 30 09/11/19 17:09 76 152/71 09/11/19 17:09 152/71 09/11/19 16:00 98.0 76 20 152/71 (98) 99 09/11/19 16:00 Mechanical Ventilator Mechanical Ventilator Mechanical Ventilator Mechanical Ventilator 09/11/19 16:00 30 09/11/19 15:20 78 09/11/19 15:00 82 19 100 Mechanical Ventilator 30 90 20 30 09/11/19 13:57 72 20 124/74 (91) 99 09/11/19 13:05 82 23 30 09/11/19 12:02 143/60 09/11/19 12:00 30 09/11/19 12:00 Mechanical Ventilator Mechanical Ventilator Mechanical Ventilator Mechanical Ventilator 09/11/19 11:35 83 09/11/19 11:25 97.7 73 20 143/60 (87) 99 09/11/19 11:00 82 19 100 Mechanical Ventilator 30 84 22 30 Height (Feet): 5 Height (Inches): 4.00 Weight (Pounds): 112 HEENT: status post trach Respiratory/Chest: lungs clear Cardiovascular: normal rate, regular rhythm, no gallop/murmur Abdomen: soft, non tender, other - GT Extremities: other - + edema, left groin catheter Laboratory Tests Test 09/12/19 04:00 White Blood Count 8.6 K/UL (4.8-10.8) Red Blood Count 3.40 M/UL (4.20-5.40) L Hemoglobin 10.0 G/DL (12.0-16.0) L Hematocrit 30.2 % (37.0-47.0) L Mean Corpuscular Volume 89 FL (80-99) Mean Corpuscular Hemoglobin 29.5 PG (27.0-31.0) Mean Corpuscular Hemoglobin Concent 33.2 G/DL (32.0-36.0) Red Cell Distribution Width 15.3 % (11.6-14.8) H Platelet Count 374 K/UL (150-450) Mean Platelet Volume 4.5 FL (6.5-10.1) L Neutrophils (%) (Auto) 64.2 % (45.0-75.0) Lymphocytes (%) (Auto) 29.2 % (20.0-45.0) Monocytes (%) (Auto) 4.7 % (1.0-10.0) Eosinophils (%) (Auto) 1.1 % (0.0-3.0) Basophils (%) (Auto) 0.8 % (0.0-2.0) Sodium Level 145 MMOL/L (136-145) Potassium Level 3.5 MMOL/L (3.5-5.1) Chloride Level 106 MMOL/L (98-107) Carbon Dioxide Level 25 MMOL/L (21-32) Anion Gap 14 mmol/L (5-15) Blood Urea Nitrogen 57 mg/dL (7-18) H Creatinine 3.5 MG/DL (0.55-1.30) H Estimat Glomerular Filtration Rate 12.6 mL/min (>60) Glucose Level 126 MG/DL (74-106) H Calcium Level 9.2 MG/DL (8.5-10.1) Phosphorus Level 3.6 MG/DL (2.5-4.9) Magnesium Level 2.1 MG/DL (1.8-2.4) Total Bilirubin 0.7 MG/DL (0.2-1.0) Aspartate Amino Transf (AST/SGOT) 43 U/L (15-37) H Alanine Aminotransferase (ALT/SGPT) 21 U/L (12-78) Alkaline Phosphatase 139 U/L (46-116) H Total Protein 7.0 G/DL (6.4-8.2) Albumin 2.3 G/DL (3.4-5.0) L Globulin 4.7 g/dL Albumin/Globulin Ratio 0.5 (1.0-2.7) L Current Medications Medications (Trade) Dose Ordered Sig/Javier Route PRN Reason Start Time Stop Time Status Last Admin Dose Admin Acetaminophen (Tylenol) 650 mg Q4H PRN GT Mild Pain/Temp > 100.5 09/03/19 07:00 10/03/19 06:59 09/09/19 06:13 Acetylcysteine (Mucomyst) 100 mg Q4HRT [facility] 08/31/19 19:00 11/29/19 18:59 09/12/19 06:59 Albuterol/ Ipratropium (Albuterol/ Ipratropium) 3 ml Q4HRT [facility] 09/11/19 11:00 09/16/19 10:59 09/12/19 06:59 Amlodipine Besylate (Norvasc) 5 mg BID 08/23/19 01:45 09/22/19 01:44 09/12/19 09:31 Chlorhexidine Gluconate (Nae-Hex 2%) 1 applic DAILY@1999 TOPIC 08/15/19 20:00 09/14/19 19:59 09/12/19 01:10 Dextrose (Dextrose 50%) 25 ml Q30M PRN IV Hypoglycemia 09/02/19 06:15 12/01/19 06:14 09/04/19 12:11 Dextrose (Dextrose 50%) 50 ml Q30M PRN IV Hypoglycemia 09/02/19 06:15 12/01/19 06:14 Hydralazine HCl (Apresoline) 10 mg Q4H PRN IV For High Blood Pressure 08/18/19 12:44 09/17/19 12:43 09/01/19 20:27 Hydralazine HCl (Apresoline) 25 mg Q6HR NG 08/23/19 06:00 09/22/19 05:59 09/12/19 06:21 Lansoprazole (Prevacid) 30 mg BID GT 08/19/19 09:00 09/18/19 08:59 09/12/19 09:31 Levothyroxine Sodium (Synthroid) 50 mcg DAILY@0630 ORAL 08/25/19 06:30 09/24/19 06:29 09/12/19 06:22 Midazolam HCl 100 ml @ 0 mls/hr Q24H PRN IV Agitation 09/05/19 18:15 09/12/19 18:14 Melissa Solares MD Sep 12, 2019 10:47
--- NOTE | 2019-09-12 11:51 | Nephrology Progress Note ---
Assessment/Plan Problem List: (1) ESRD (end stage renal disease) on dialysis (2) Malnutrition (3) Anemia in CKD (chronic kidney disease) (4) Hypotension (5) Thrombocytopenia (6) Sepsis Assessment: klebsiella in blood Assessment -Early sepsis with shock. -Healthcare-associated pneumonia. -Severe protein-calorie malnutrition. -Thrombocytopenia. - End-stage renal disease. - History of hypertension. - Bradycardia. - HypoThyroid Plan Tracheostomy September 07 Last dialysis September 07, next will be September 12 Chest tube on the left side was put in on September 01 was discontinued September 07 Patient transfused 3 units of packed RBCs for low hemoglobin Remains full code Blood pressure fluctuating, will start hydralazine via NG tube for blood pressure Magnesium and potassium supplement intravenously as needed Patient underwent PEG placement August 16 patient remains intubated on ventilator Discussed with RN Aim to wean from ventilator or consider tracheostomy Permacath was removed on August 12 Dialysis 08/11 Transfusion as needed Patient had hematemesis meds IV as possible Surveillance blood cultures tomorrow Plan to put the permacath back in on Thursday if cultures are negative keep BP and BS in check Inflammatory markers per orders Subjective ROS Limited/Unobtainable: Yes Objective Objective Last 24 Hour Vital Signs Date Time Temp Pulse Resp B/P (MAP) Pulse Ox O2 Delivery O2 Flow Rate FiO2 09/12/19 10:51 80 20 100 Mechanical Ventilator 30 77 20 30 09/12/19 10:48 98 09/12/19 09:36 79 18 30 09/12/19 09:31 83 147/91 09/12/19 06:59 83 23 100 Mechanical Ventilator 30 85 24 30 09/12/19 06:21 147/91 09/12/19 05:10 79 18 30 09/12/19 04:00 30 09/12/19 04:00 Mechanical Ventilator Mechanical Ventilator Mechanical Ventilator Mechanical Ventilator 09/12/19 04:00 84 09/12/19 04:00 97.2 86 20 147/91 (109) 100 09/12/19 03:20 84 18 100 Mechanical Ventilator 30 86 18 30 09/12/19 01:05 145/71 09/12/19 00:30 84 18 30 09/12/19 00:00 90 09/12/19 00:00 Mechanical Ventilator Mechanical Ventilator Mechanical Ventilator Mechanical Ventilator 09/12/19 00:00 30 09/12/19 00:00 97.8 84 18 139/67 (91) 99 09/11/19 23:26 88 20 100 Mechanical Ventilator 30 90 18 30 09/11/19 21:20 77 18 30 09/11/19 20:12 80 18 100 Mechanical Ventilator 30 90 18 30 09/11/19 20:00 97.7 75 18 145/71 (95) 100 09/11/19 20:00 75 09/11/19 20:00 Mechanical Ventilator Mechanical Ventilator Mechanical Ventilator Mechanical Ventilator 09/11/19 20:00 30 09/11/19 17:09 76 152/71 09/11/19 17:09 152/71 09/11/19 16:00 98.0 76 20 152/71 (98) 99 09/11/19 16:00 Mechanical Ventilator Mechanical Ventilator Mechanical Ventilator Mechanical Ventilator 09/11/19 16:00 30 09/11/19 15:20 78 09/11/19 15:00 82 19 100 Mechanical Ventilator 30 90 20 30 09/11/19 13:57 72 20 124/74 (91) 99 09/11/19 13:05 82 23 30 09/11/19 12:02 143/60 09/11/19 12:00 30 09/11/19 12:00 Mechanical Ventilator Mechanical Ventilator Mechanical Ventilator Mechanical Ventilator Intake and Output 09/11/19 09/12/19 19:00 07:00 Intake Total 570 ml 485 ml Output Total 200 ml Balance 570 ml 285 ml Intake Free Water 150 ml 100 ml Tube Feeding 420 ml 385 ml Output Urine Total 200 ml # Bowel Movements 1 1 Laboratory Tests 09/12/19 04:00: White Blood Count 8.6, Red Blood Count 3.40L, Hemoglobin 10.0L, Hematocrit 30.2L , Mean Corpuscular Volume 89, Mean Corpuscular Hemoglobin 29.5, Mean Corpuscular Hemoglobin Concent 33.2, Red Cell Distribution Width 15.3H, Platelet Count 374, Mean Platelet Volume 4.5L, Neutrophils (%) (Auto) 64.2, Lymphocytes (%) (Auto) 29.2, Monocytes (%) (Auto) 4.7, Eosinophils (%) (Auto) 1.1, Basophils (%) (Auto) 0.8, Sodium Level 145, Potassium Level 3.5, Chloride Level 106, Carbon Dioxide Level 25, Anion Gap 14, Blood Urea Nitrogen 57H, Creatinine 3.5H, Estimat Glomerular Filtration Rate 12.6, Glucose Level 126H, Calcium Level 9.2, Phosphorus Level 3.6, Magnesium Level 2.1, Total Bilirubin 0.7, Aspartate Amino Transf (AST/SGOT) 43H, Alanine Aminotransferase (ALT/SGPT) 21, Alkaline Phosphatase 139H, Total Protein 7.0, Albumin 2.3L, Globulin 4.7, Albumin/Globulin Ratio 0.5L Height (Feet): 5 Height (Inches): 4.00 Weight (Pounds): 112 General Appearance: no apparent distress EENT: other - Trached and vented Cardiovascular: normal rate Respiratory/Chest: decreased breath sounds Abdomen: soft, other - GT feeding on Objective no change William Blackwood MD Sep 12, 2019 11:51
[2019-09-12 12:00] VITALS: BP 148/75
[2019-09-12] MEDS ORDERED: HydrALAZINE 25mg tab NG SCH (13:17)
--- NOTE | 2019-09-12 14:21 | Surgery Progress Note ---
Surgery Progress Note Subjective Procedure Performed 1. tracheostomy 2 removal of left tube thoracostomy Additional Comments stable no acute events Objective Last 24 Hour Vital Signs Date Time Temp Pulse Resp B/P (MAP) Pulse Ox O2 Delivery O2 Flow Rate FiO2 09/12/19 13:45 147/75 09/12/19 12:58 84 20 30 09/12/19 12:00 Mechanical Ventilator Mechanical Ventilator Mechanical Ventilator Mechanical Ventilator 09/12/19 12:00 97.7 82 22 148/75 (99) 98 09/12/19 12:00 30 09/12/19 11:37 81 09/12/19 10:51 80 20 100 Mechanical Ventilator 30 77 20 30 09/12/19 10:48 98 09/12/19 09:36 79 18 30 09/12/19 09:31 83 147/91 09/12/19 08:00 82 09/12/19 08:00 30 09/12/19 08:00 97.7 82 22 147/76 (99) 98 09/12/19 08:00 Mechanical Ventilator Mechanical Ventilator Mechanical Ventilator Mechanical Ventilator 09/12/19 06:59 83 23 100 Mechanical Ventilator 30 85 24 30 09/12/19 06:21 147/91 09/12/19 05:10 79 18 30 09/12/19 04:00 30 09/12/19 04:00 Mechanical Ventilator Mechanical Ventilator Mechanical Ventilator Mechanical Ventilator 09/12/19 04:00 84 09/12/19 04:00 97.2 86 20 147/91 (109) 100 09/12/19 03:20 84 18 100 Mechanical Ventilator 30 86 18 30 09/12/19 01:05 145/71 09/12/19 00:30 84 18 30 09/12/19 00:00 90 09/12/19 00:00 Mechanical Ventilator Mechanical Ventilator Mechanical Ventilator Mechanical Ventilator 09/12/19 00:00 30 09/12/19 00:00 97.8 84 18 139/67 (91) 99 09/11/19 23:26 88 20 100 Mechanical Ventilator 30 90 18 30 09/11/19 21:20 77 18 30 09/11/19 20:12 80 18 100 Mechanical Ventilator 30 90 18 30 09/11/19 20:00 97.7 75 18 145/71 (95) 100 09/11/19 20:00 75 09/11/19 20:00 Mechanical Ventilator Mechanical Ventilator Mechanical Ventilator Mechanical Ventilator 09/11/19 20:00 30 09/11/19 17:09 76 152/71 09/11/19 17:09 152/71 09/11/19 16:00 98.0 76 20 152/71 (98) 99 09/11/19 16:00 Mechanical Ventilator Mechanical Ventilator Mechanical Ventilator Mechanical Ventilator 09/11/19 16:00 30 09/11/19 15:20 78 09/11/19 15:00 82 19 100 Mechanical Ventilator 30 90 20 30 I&O Intake and Output 09/11/19 09/12/19 19:00 07:00 Intake Total 570 ml 485 ml Output Total 200 ml Balance 570 ml 285 ml Intake Free Water 150 ml 100 ml Tube Feeding 420 ml 385 ml Output Urine Total 200 ml # Bowel Movements 1 1 Dressing: other Wound: other Drains: other Cardiovascular: RSR Respiratory: decreased breath sounds Abdomen: soft, non-tender, present bowel sounds Extremities: no cyanosis Laboratory Tests Test 09/12/19 04:00 White Blood Count 8.6 K/UL (4.8-10.8) Red Blood Count 3.40 M/UL (4.20-5.40) L Hemoglobin 10.0 G/DL (12.0-16.0) L Hematocrit 30.2 % (37.0-47.0) L Mean Corpuscular Volume 89 FL (80-99) Mean Corpuscular Hemoglobin 29.5 PG (27.0-31.0) Mean Corpuscular Hemoglobin Concent 33.2 G/DL (32.0-36.0) Red Cell Distribution Width 15.3 % (11.6-14.8) H Platelet Count 374 K/UL (150-450) Mean Platelet Volume 4.5 FL (6.5-10.1) L Neutrophils (%) (Auto) 64.2 % (45.0-75.0) Lymphocytes (%) (Auto) 29.2 % (20.0-45.0) Monocytes (%) (Auto) 4.7 % (1.0-10.0) Eosinophils (%) (Auto) 1.1 % (0.0-3.0) Basophils (%) (Auto) 0.8 % (0.0-2.0) Sodium Level 145 MMOL/L (136-145) Potassium Level 3.5 MMOL/L (3.5-5.1) Chloride Level 106 MMOL/L (98-107) Carbon Dioxide Level 25 MMOL/L (21-32) Anion Gap 14 mmol/L (5-15) Blood Urea Nitrogen 57 mg/dL (7-18) H Creatinine 3.5 MG/DL (0.55-1.30) H Estimat Glomerular Filtration Rate 12.6 mL/min (>60) Glucose Level 126 MG/DL (74-106) H Calcium Level 9.2 MG/DL (8.5-10.1) Phosphorus Level 3.6 MG/DL (2.5-4.9) Magnesium Level 2.1 MG/DL (1.8-2.4) Total Bilirubin 0.7 MG/DL (0.2-1.0) Aspartate Amino Transf (AST/SGOT) 43 U/L (15-37) H Alanine Aminotransferase (ALT/SGPT) 21 U/L (12-78) Alkaline Phosphatase 139 U/L (46-116) H Total Protein 7.0 G/DL (6.4-8.2) Albumin 2.3 G/DL (3.4-5.0) L Globulin 4.7 g/dL Albumin/Globulin Ratio 0.5 (1.0-2.7) L Assessment Post-op Diagnosis same Plan Problems: (1) Malnutrition Assessment & Plan: DAILY ESTIMATED NEEDS: Needs based on ESRD+ HD, underweight, wound/ 39.5kg 35-40 kcals/kg 0290-4512 total kcals 1.25-1.8 g protein/kg 49-71 g total protein 20-22 mL/kg 790-869 total fluid mLs NUTRITION DIAGNOSIS: * Increased kcal and protein needs r/t underweight status, HD needs, wuond healing as evidenced by pt is underweight per guidelines, ESRD, on HD, admitted non-blanching erythema wounds @ BL heels and sacrum * Swallowing difficulty R/T dysphagia as evidenced by [employer] recommends temporary nonoral feeding at this time, s/p NGT insertion, on NGT feeding-> now s/p self removal, NPO. CURRENT TF:NPO PO DIET RECOMMENDATIONS: WHEN SAFE FOR ORAL DIET -> renal/ texture per [employer] ENTERAL NUTRITION RECOMMENDATIONS: W/ GI access: Nepro @ 35ml/hr x 22 hrs to provide 770ml, 1386kcal, 62g prot, 560ml free water * W/ GI access, resume TF on Nepro * Initiate Nepro @ 15ml/hr x 6 hrs, advance 10ml q 4-6 hrs as tolerated to goal rate. * Hold 1 hour before and after Synthroid med * HOB over 30 degrees/ water flush per MD. ADDITIONAL RECOMMENDATIONS: 1) Calibrated bed scale wt for accurate CBW -> daily wt monitoring Per HD record: dry wt on 07/30=39.5kg (87lbs) 2) Wound care: (W/ GI access) add Nephorivte x 1 + Balta BID 3) Monitor NPO status: without GI access at this time, s/p pulling out NGT 4) Monitor for hypoglycemia while NPO 5) Monitor for continuity of HD (2) Septic arthritis Assessment & Plan: Pt presented on admission with generalized scaly rash . pt noted to be restless and scratching at skin. Bleeding from oral mucosa noted. Joint deformity noted to R shoulder. Surgical incision approximated with 11 sutures. Erythema but no exudate,or elevation in skin temp at site of incision. Historical incision R hip that is tunneled.Small amt seropurulent exudate noted. Periwound is erythematous,but no elevation in skin temp noted. No odor noted. Non-blanching erythema noted to sacrum. Perianal area is erythematous and excoriated. L heel is boggy with non-blanching erythema. R heel is soft with non-blanching erythema. No evidence of skin breakdown to all other bony prominences. Tx.plan: Cover R shoulder with Drsg and change daily and prn. Cleanse R hip wound with Saline. Apply Therahoney.Apply Cavilon Skin Barrier periwound. Cover with Optifoam drsg. Change every 3 days and prn. Apply Moisture Barrier Paste to perianal area and buttocks. Cover Sacrum with Optifoam drsg. Change every 3 days and prn. Apply Cavilon Skin Barrier to both heels. Cover each heel with Optifoam drsg. Change every 7 days and prn. APM/ELVIA Mattress overlay. Reposition at least every 2hours or as tolerated. Off-load heels with pillow. HD cath necessary HD as renal likely will need intubation (3) Wound, open, hip or thigh with complication Assessment & Plan: slow healing will need nutritional optimization difficult ng tube peg when stable sutures removed from right shoulder comfortable wean vent may need trach (4) Abscess of right hip (5) possible septic arthritis (6) Renal failure (ARF), acute on chronic Assessment & Plan: cont HD will need tunneled cath placement okay to use fem line for now but will need change soon. line monitored and clean dressings going well (7) Pneumonia Assessment & Plan: intubated on vent support not tolerating weaning may need trach hemothorax likely after thoracentesis Chest CT noted Left chest tube placed With plan for trach chest tube can be considered but overall prognosis is very poor s/p trach left chest tub eout cxr noted and okay downgrade Camilo James Sep 12, 2019 14:20
[2019-09-12 16:00] VITALS: BP 152/77
[2019-09-12 20:00] VITALS: BP 147/69
--- NOTE | 2019-09-12 22:24 | General Progress Note ---
Assessment/Plan Status: stable, not improved, unchanged, deteriorating Assessment/Plan: Assessment - Severe ulcerative esophagitis - Resp failure - s/p recent Chest tube - thrombocytopenia --> resolved - Renal failure - aspiration risk --> s/p PEG - anemia - mild elevation in alk phos - bradycardia - Poor prognosis Recommendations - GT care - water flushes - elevate HOB - monitor H&H - follow LFT - vent Subjective Allergies: Coded Allergies: VANCOMYCIN (Unverified Allergy, Unknown, 08/02/19) Subjective Above noted No events overnight d/w RN Objective Last 24 Hour Vital Signs Date Time Temp Pulse Resp B/P (MAP) Pulse Ox O2 Delivery O2 Flow Rate FiO2 09/12/19 20:31 80 21 30 09/12/19 20:00 Mechanical Ventilator Mechanical Ventilator Mechanical Ventilator Mechanical Ventilator 09/12/19 20:00 83 09/12/19 20:00 30 09/12/19 19:30 84 24 100 Mechanical Ventilator 30 88 24 30 09/12/19 17:53 157/79 09/12/19 17:46 82 157/79 09/12/19 16:51 81 21 30 09/12/19 16:00 97.6 82 21 152/77 (102) 100 09/12/19 16:00 30 09/12/19 16:00 Mechanical Ventilator Mechanical Ventilator Mechanical Ventilator Mechanical Ventilator 09/12/19 16:00 86 09/12/19 14:37 83 19 100 Mechanical Ventilator 30 81 21 30 09/12/19 13:45 147/75 09/12/19 12:58 84 20 30 09/12/19 12:00 Mechanical Ventilator Mechanical Ventilator Mechanical Ventilator Mechanical Ventilator 09/12/19 12:00 97.7 82 22 148/75 (99) 98 09/12/19 12:00 157/79 09/12/19 12:00 30 09/12/19 11:37 81 09/12/19 10:51 80 20 100 Mechanical Ventilator 30 77 20 30 09/12/19 10:48 98 09/12/19 09:36 79 18 30 09/12/19 09:31 83 147/91 09/12/19 08:00 82 09/12/19 08:00 30 09/12/19 08:00 97.7 82 22 147/76 (99) 98 09/12/19 08:00 Mechanical Ventilator Mechanical Ventilator Mechanical Ventilator Mechanical Ventilator 09/12/19 06:59 83 23 100 Mechanical Ventilator 30 85 24 30 09/12/19 06:21 147/91 09/12/19 05:10 79 18 30 09/12/19 04:00 30 09/12/19 04:00 Mechanical Ventilator Mechanical Ventilator Mechanical Ventilator Mechanical Ventilator 09/12/19 04:00 84 09/12/19 04:00 97.2 86 20 147/91 (109) 100 09/12/19 03:20 84 18 100 Mechanical Ventilator 30 86 18 30 09/12/19 01:05 145/71 09/12/19 00:30 84 18 30 09/12/19 00:00 90 09/12/19 00:00 Mechanical Ventilator Mechanical Ventilator Mechanical Ventilator Mechanical Ventilator 09/12/19 00:00 30 09/12/19 00:00 97.8 84 18 139/67 (91) 99 09/11/19 23:26 88 20 100 Mechanical Ventilator 30 90 18 30 Intake and Output 09/11/19 09/12/19 19:00 07:00 Intake Total 570 ml 520 ml Output Total 200 ml Balance 570 ml 320 ml Intake Free Water 150 ml 100 ml Tube Feeding 420 ml 420 ml Output Urine Total 200 ml # Bowel Movements 1 1 Laboratory Tests 09/12/19 04:00: White Blood Count 8.6, Red Blood Count 3.40L, Hemoglobin 10.0L, Hematocrit 30.2L , Mean Corpuscular Volume 89, Mean Corpuscular Hemoglobin 29.5, Mean Corpuscular Hemoglobin Concent 33.2, Red Cell Distribution Width 15.3H, Platelet Count 374, Mean Platelet Volume 4.5L, Neutrophils (%) (Auto) 64.2, Lymphocytes (%) (Auto) 29.2, Monocytes (%) (Auto) 4.7, Eosinophils (%) (Auto) 1.1, Basophils (%) (Auto) 0.8, Sodium Level 145, Potassium Level 3.5, Chloride Level 106, Carbon Dioxide Level 25, Anion Gap 14, Blood Urea Nitrogen 57H, Creatinine 3.5H, Estimat Glomerular Filtration Rate 12.6, Glucose Level 126H, Calcium Level 9.2, Phosphorus Level 3.6, Magnesium Level 2.1, Total Bilirubin 0.7, Aspartate Amino Transf (AST/SGOT) 43H, Alanine Aminotransferase (ALT/SGPT) 21, Alkaline Phosphatase 139H, Total Protein 7.0, Albumin 2.3L, Globulin 4.7, Albumin/Globulin Ratio 0.5L Height (Feet): 5 Height (Inches): 4.00 Weight (Pounds): 112 Objective Debilitated frail woman NCAT (+) on vent supple, (+) trach scattered ronchi RR abd soft ND NT, (+) GT no edema Cristy Elizondo MD Sep 12, 2019 22:24
[2019-09-13] VITALS (7 sets, daily range): BP systolic 146–169; BP diastolic 65–89
[2019-09-13] MEDS: Albuterol/Ipratropium 3ml neb HHN SCH ×7 (00:01→23:52)
[2019-09-13] MEDS: Dyna-Hex 2% Top Sol 2oz TOPIC SCH ×2 (00:17→22:22)
[2019-09-13] MEDS: HydrALAZINE 25mg tab NG SCH ×4 (00:18→17:48)
--- NOTE | 2019-09-13 02:30 | Progress Note ---
DATE: 09/12/2019 CARDIOLOGY PROGRESS NOTE SUBJECTIVE: Alert, awake, on ventilator support, status post tracheostomy. No distress is noted. Monitored rhythm, sinus. Rare atrial ectopy. OBJECTIVE: VITAL SIGNS: Blood pressure 147/91, pulse 85, respirations 24. LUNGS: Scattered rhonchi. No wheezing. HEART: Regular rhythm and rate. Normal S1, S2. ABDOMEN: Soft. GJ tube intact. EXTREMITIES: Trace edema. LABORATORY DATA: White count 8.6, hemoglobin 10. Potassium 3.5, BUN 57, creatinine 3.5. Albumin 2.3. IMPRESSION: 1. Respiratory failure, status post trach. 2. End-stage renal disease on hemodialysis. 3. Hypertensive cardiomyopathy. 4. Sinus bradycardia, recovered. 5. Hypothyroidism, corrected. 6. Severe protein-calorie malnutrition. 7. Anemia of chronic kidney disease. PLAN: 1. Ventilator support. 2. Weaning efforts. 3. Nutrition by feeding tube including protein supplements. 4. Hemodialysis with ultrafiltration. 5. Titration of antihypertensives based on clinical parameters. Abel Stubbs M.D. DR: EMRE JOB#: [id number] CC:
--- NOTE | 2019-09-13 06:17 | Hematology/Onc Progress Note ---
Assessment/Plan Assessment/Plan # Thrombocytopenia - potential causes multifactorial, evaluate liver and viral etiologies to begin, in this case due to sepsis with septic shock also with cirrhosis and liver disease --> Hep panel and HIV ordered --> neg --> US abd to evaluate for cirrhosis and hsm ordered --> reviewed --> Peripheral smear ordered to evaluate for blasts /schistocytes --> none noted --> abx and other meds have been reviewed --> ok for ppx if plt >50k w/ either heparin or lovenox --> Transfuse if Plt < 20k and fever, or if Plt < 10k without fever --> okay for permacath change once plt better--> for 08/14 --> plt trend: 43-->83-->237k-->292-->341-->315-->388 -->444-->530-->252k-->344 # Anemia of chronic disease due to underlying chronic medical issues, multifactorial v Gi bleed --> Anemia workup has been ordered, rule out gi bleed --> No evidence of hemolysis is noted, peripheral smear has been reviewed. --> Hgb goal >7. Transfuse prn. --> Epogen has been started --> HOLD OFF IRON ferritin is >1000 --> Medications have been reviewed --> low threshold for gi evaluation in case has occult + --> hgb 9-->6.7-->9.2 -->10.5-->10.6 -->10.7-->10-->10.5-->9.8-->10.4-->9.5--> 3.6-->9.6-->9.7-->10-->10.3 --> blood tx: 08/11, 08/31 --> CT Chest pendig r/o hemothorax --> does show confirmation of a large left hemothorax. Complete atelectasis of the left lower lobe and partial left upper lobe atelectasis demonstrated. Mild rightward shift of the heart and mediastinum. # Sepsis with shock. --> abx as per id, recs noted --> pressors as needed # Healthcare-associated pneumonia. --> recs reviewed --> abx: jung/micafungin-->jung-->off --> 08/24 chest: moderate left pleural effusion # Severe protein-calorie malnutrition. --> nutritional support # End-stage renal disease --> had as renal hd --> with permacath # History of hypertension. --> per cards, now with Bradycardia. # Resp failure s/p vent/trach # HypoThyroid # Ngt feedings # Dvt ppx scd's The timing of this note does not necessarily reflect the time of the patient was seen. Greatly appreciate consultation. Subjective Constitutional: Denies: no symptoms, chills, fever, malaise, weakness, other HEENT: Denies: no symptoms, eye pain, blurred vision, tearing, double vision, ear pain, ear discharge, nose pain, nose congestion, throat pain, throat swelling, mouth pain, mouth swelling, other Cardiovascular: Denies: no symptoms, chest pain, edema, irregular heart rate, lightheadedness, palpitations, syncope, other Gastrointestinal/Abdominal: Denies: no symptoms, abdomen distended, abdominal pain, black stools, tarry stools, blood in stool, constipated, diarrhea, difficulty swallowing, nausea, poor appetite, poor fluid intake, rectal bleeding , vomiting, other Genitourinary: Denies: no symptoms, burning, discharge, frequency, flank pain, hematuria, incontinence, pain, urgency, other Neurologic/Psychiatric: Denies: no symptoms, anxiety, depressed, emotional problems, headache, numbness, paresthesia, pre-existing deficit, seizure, tingling, tremors, weakness, other Endocrine: Denies: no symptoms, excessive sweating, flushing, intolerance to cold, intolerance to heat, increased hunger, increased thirst, increased urine, unexplained weight gain, unexplained weight loss, other Hematologic/Lymphatic: Denies: no symptoms, anemia, easy bleeding, easy bruising, adenopathy, other Allergies: Coded Allergies: VANCOMYCIN (Unverified Allergy, Unknown, 08/02/19) Subjective 08/11: no bleeding or chills, labs reviewed, no major bleeding, plt less than 50k 08/12: icu, s/p blood, hgb improved to 9.2, 08/14: icu, pending consent for thora and permacath, labs reviewed 08/15: new permacath placed, no bleeding, for hd, plt much improved, started lovenox sq 08/16: ett to be adjusted, bp on high end, micafungin started, possible bronch 08/17: weaning as per pulm, no events otherwise, labs noted 08/18: no events no bleeding, remains confused on vent, for hd 08/20: icu, failed to wean, labs reviewed, jung 08/21: resting in bed, no overnight events, labs reviewed 08/22: awake, confused, restraints, no overnight events 08/23: no events, no bleeding, on ppi bid 08/24: icu, failed to wean, labs reviewed 08/25: no overnight events, us chest, restraints, afebrile 08/26 difficult in weaning, nad, seen by surg, pulm labs noted 08/27 awake on restraints, thoracentesis for am, labs reviewed 08/29 no bleeding, no night sweats, no major changes, on ppi bid 08/30 no major events, remains on vent, no bleeding, dw pcp 08/31 hgb dropped to 3.6, has been transfused with prbc, in icu, david Rn, ct chest pend 09/01 no major events, no bleeding, labs noted, hgb remains low, hgb 9.6 09/03 lethargic, left chest tube dry/intact, off abx, vent 09/04 remains on a vent, synthroid, labs reviewed 09/05 awake and alert, no acute events, hgb 9.8, no new orders 09/06 no bleeding or chills, labs noted, no major events overnight, david rn 09/07 no events, no night sweats, no bleeding, no fc, remains agitated in the am 09/08 remains in the icu, trach was done, on vent, abx off, on epo 09/10 transferred to sdu, restraints, vent, labs reviewed 09/11 tube feeds have been ongoing, no f/c, labs reviewed 09/12 no events, no bleeding, no night sweats, hgb 10 Objective Objective Current Medications Medications (Trade) Dose Ordered Sig/Javier Route PRN Reason Start Time Stop Time Status Last Admin Dose Admin Acetaminophen (Tylenol) 650 mg Q4H PRN GT Mild Pain/Temp > 100.5 09/03/19 07:00 10/03/19 06:59 09/09/19 06:13 Acetylcysteine (Mucomyst) 100 mg Q4HRT N 08/31/19 19:00 11/29/19 18:59 09/13/19 03:12 Albuterol/ Ipratropium (Albuterol/ Ipratropium) 3 ml Q4HRT N 09/11/19 11:00 09/16/19 10:59 09/13/19 03:12 Amlodipine Besylate (Norvasc) 5 mg BID NG 08/23/19 01:45 09/22/19 01:44 09/12/19 17:46 Chlorhexidine Gluconate (Nae-Hex 2%) 1 applic DAILY@1999 TOPIC 08/15/19 20:00 09/14/19 19:59 09/13/19 00:17 Dextrose (Dextrose 50%) 25 ml Q30M PRN IV Hypoglycemia 09/02/19 06:15 12/01/19 06:14 09/04/19 12:11 Dextrose (Dextrose 50%) 50 ml Q30M PRN IV Hypoglycemia 09/02/19 06:15 12/01/19 06:14 Hydralazine HCl (Apresoline) 10 mg Q4H PRN IV For High Blood Pressure 08/18/19 12:44 09/17/19 12:43 09/01/19 20:27 Hydralazine HCl (Apresoline) 25 mg Q6HR NG 08/23/19 06:00 09/22/19 05:59 09/13/19 06:11 Lansoprazole (Prevacid) 30 mg BID GT 08/19/19 09:00 09/18/19 08:59 09/12/19 17:45 Levothyroxine Sodium (Synthroid) 50 mcg DAILY@0630 ORAL 08/25/19 06:30 09/24/19 06:29 09/13/19 06:11 Last 24 Hour Vital Signs Date Time Temp Pulse Resp B/P (MAP) Pulse Ox O2 Delivery O2 Flow Rate FiO2 09/13/19 06:11 146/79 09/13/19 05:30 85 24 30 09/13/19 04:00 97.5 74 20 146/79 (101) 100 09/13/19 04:00 30 09/13/19 04:00 Mechanical Ventilator Mechanical Ventilator Mechanical Ventilator Mechanical Ventilator 09/13/19 04:00 70 09/13/19 03:12 73 19 100 Mechanical Ventilator 30 75 20 30 09/13/19 01:30 86 21 30 09/13/19 00:18 146/77 09/13/19 00:00 97.2 77 18 146/77 (100) 99 09/12/19 23:50 30 09/12/19 23:46 Mechanical Ventilator Mechanical Ventilator Mechanical Ventilator Mechanical Ventilator 09/12/19 23:30 74 18 100 Mechanical Ventilator 30 76 21 30 09/12/19 23:26 93 09/12/19 20:31 80 21 30 09/12/19 20:00 97.3 78 20 147/69 (95) 100 09/12/19 20:00 Mechanical Ventilator Mechanical Ventilator Mechanical Ventilator Mechanical Ventilator 09/12/19 20:00 83 09/12/19 20:00 30 09/12/19 19:30 84 24 100 Mechanical Ventilator 30 88 24 30 09/12/19 17:53 157/79 09/12/19 17:46 82 157/79 09/12/19 16:51 81 21 30 09/12/19 16:00 97.6 82 21 152/77 (102) 100 09/12/19 16:00 30 09/12/19 16:00 Mechanical Ventilator Mechanical Ventilator Mechanical Ventilator Mechanical Ventilator 09/12/19 16:00 86 09/12/19 14:37 83 19 100 Mechanical Ventilator 30 81 21 30 09/12/19 13:45 147/75 09/12/19 12:58 84 20 30 09/12/19 12:00 Mechanical Ventilator Mechanical Ventilator Mechanical Ventilator Mechanical Ventilator 09/12/19 12:00 97.7 82 22 148/75 (99) 98 09/12/19 12:00 157/79 09/12/19 12:00 30 09/12/19 11:37 81 09/12/19 10:51 80 20 100 Mechanical Ventilator 30 77 20 30 09/12/19 10:48 98 09/12/19 09:36 79 18 30 09/12/19 09:31 83 147/91 09/12/19 08:00 82 09/12/19 08:00 30 09/12/19 08:00 97.7 82 22 147/76 (99) 98 09/12/19 08:00 Mechanical Ventilator Mechanical Ventilator Mechanical Ventilator Mechanical Ventilator 09/12/19 06:59 83 23 100 Mechanical Ventilator 30 85 24 30 09/12/19 06:21 147/91 09/12/19 05:10 79 18 30 09/12/19 04:00 30 09/12/19 04:00 Mechanical Ventilator Mechanical Ventilator Mechanical Ventilator Mechanical Ventilator 09/12/19 04:00 84 09/12/19 04:00 97.2 86 20 147/91 (109) 100 09/12/19 03:20 84 18 100 Mechanical Ventilator 30 86 18 30 09/12/19 01:05 145/71 09/12/19 00:30 84 18 30 09/12/19 00:00 90 09/12/19 00:00 Mechanical Ventilator Mechanical Ventilator Mechanical Ventilator Mechanical Ventilator 09/12/19 00:00 30 09/12/19 00:00 97.8 84 18 139/67 (91) 99 09/11/19 23:26 88 20 100 Mechanical Ventilator 30 90 18 30 09/11/19 21:20 77 18 30 09/11/19 20:12 80 18 100 Mechanical Ventilator 30 90 18 30 09/11/19 20:00 97.7 75 18 145/71 (95) 100 09/11/19 20:00 75 09/11/19 20:00 Mechanical Ventilator Mechanical Ventilator Mechanical Ventilator Mechanical Ventilator 09/11/19 20:00 30 09/11/19 17:09 76 152/71 09/11/19 17:09 152/71 09/11/19 16:00 98.0 76 20 152/71 (98) 99 09/11/19 16:00 Mechanical Ventilator Mechanical Ventilator Mechanical Ventilator Mechanical Ventilator 09/11/19 16:00 30 09/11/19 15:20 78 09/11/19 15:00 82 19 100 Mechanical Ventilator 30 90 20 30 09/11/19 13:57 72 20 124/74 (91) 99 09/11/19 13:05 82 23 30 09/11/19 12:02 143/60 09/11/19 12:00 30 09/11/19 12:00 Mechanical Ventilator Mechanical Ventilator Mechanical Ventilator Mechanical Ventilator 09/11/19 11:35 83 09/11/19 11:25 97.7 73 20 143/60 (87) 99 09/11/19 11:00 82 19 100 Mechanical Ventilator 30 84 22 30 09/11/19 09:05 74 18 30 09/11/19 08:42 76 142/78 09/11/19 08:00 30 09/11/19 08:00 Mechanical Ventilator Mechanical Ventilator Mechanical Ventilator Mechanical Ventilator 09/11/19 07:40 97.8 76 20 142/78 (99) 100 09/11/19 07:39 74 09/11/19 07:10 93 18 30 Intake and Output 09/12/19 09/13/19 19:00 07:00 Intake Total 720 ml 415 ml Output Total 300 ml Balance 420 ml 415 ml Intake Free Water 300 ml 100 ml Tube Feeding 420 ml 315 ml Output Urine Total 300 ml Labs Test 09/11/19 03:39 09/11/19 06:18 09/12/19 04:00 White Blood Count 10.7 K/UL (4.8-10.8) 8.6 K/UL (4.8-10.8) Red Blood Count 3.41 M/UL (4.20-5.40) 3.40 M/UL (4.20-5.40) Hemoglobin 10.3 G/DL (12.0-16.0) 10.0 G/DL (12.0-16.0) Hematocrit 30.4 % (37.0-47.0) 30.2 % (37.0-47.0) Mean Corpuscular Volume 89 FL (80-99) 89 FL (80-99) Mean Corpuscular Hemoglobin 30.1 PG (27.0-31.0) 29.5 PG (27.0-31.0) Mean Corpuscular Hemoglobin Concent 33.8 G/DL (32.0-36.0) 33.2 G/DL (32.0-36.0) Red Cell Distribution Width 15.4 % (11.6-14.8) 15.3 % (11.6-14.8) Platelet Count 344 K/UL (150-450) 374 K/UL (150-450) Mean Platelet Volume 4.7 FL (6.5-10.1) 4.5 FL (6.5-10.1) Neutrophils (%) (Auto) 77.3 % (45.0-75.0) 64.2 % (45.0-75.0) Lymphocytes (%) (Auto) 17.5 % (20.0-45.0) 29.2 % (20.0-45.0) Monocytes (%) (Auto) 3.8 % (1.0-10.0) 4.7 % (1.0-10.0) Eosinophils (%) (Auto) 1.0 % (0.0-3.0) 1.1 % (0.0-3.0) Basophils (%) (Auto) 0.4 % (0.0-2.0) 0.8 % (0.0-2.0) Sodium Level 142 MMOL/L (136-145) 145 MMOL/L (136-145) Potassium Level 3.5 MMOL/L (3.5-5.1) 3.5 MMOL/L (3.5-5.1) Chloride Level 104 MMOL/L (98-107) 106 MMOL/L (98-107) Carbon Dioxide Level 31 MMOL/L (21-32) 25 MMOL/L (21-32) Anion Gap 7 mmol/L (5-15) 14 mmol/L (5-15) Blood Urea Nitrogen 49 mg/dL (7-18) 57 mg/dL (7-18) Creatinine 3.3 MG/DL (0.55-1.30) 3.5 MG/DL (0.55-1.30) Estimat Glomerular Filtration Rate 13.5 mL/min (>60) 12.6 mL/min (>60) Glucose Level 137 MG/DL (74-106) 126 MG/DL (74-106) Calcium Level 8.8 MG/DL (8.5-10.1) 9.2 MG/DL (8.5-10.1) Phosphorus Level 3.8 MG/DL (2.5-4.9) 3.6 MG/DL (2.5-4.9) Magnesium Level 2.0 MG/DL (1.8-2.4) 2.1 MG/DL (1.8-2.4) Total Bilirubin 0.6 MG/DL (0.2-1.0) 0.7 MG/DL (0.2-1.0) Aspartate Amino Transf (AST/SGOT) 36 U/L (15-37) 43 U/L (15-37) Alanine Aminotransferase (ALT/SGPT) 11 U/L (12-78) 21 U/L (12-78) Alkaline Phosphatase 163 U/L (46-116) 139 U/L (46-116) C-Reactive Protein, Quantitative 34.2 mg/dL (0.00-0.90) Pro-B-Type Natriuretic Peptide > 28725 pg/mL (0-125) Total Protein 7.1 G/DL (6.4-8.2) 7.0 G/DL (6.4-8.2) Albumin 2.3 G/DL (3.4-5.0) 2.3 G/DL (3.4-5.0) Globulin 4.8 g/dL 4.7 g/dL Albumin/Globulin Ratio 0.5 (1.0-2.7) 0.5 (1.0-2.7) Thyroid Stimulating Hormone (TSH) 2.434 uiU/mL (0.358-3.740) Free Thyroxine 1.36 NG/DL (0.76-1.46) Height (Feet): 5 Height (Inches): 4.00 Weight (Pounds): 112 Objective gen: nad pulm: on trach+ / vent, decreased breath sounds left, chest tube+ cv: rrr, no gmr abd: sfot, nt, nd ++ gt ext: no cce Gio Rob MD Sep 13, 2019 06:17
--- NOTE | 2019-09-13 07:28 | General Progress Note ---
Assessment/Plan Problem List: (1) Hypothyroid ICD Codes: E03.9 - Hypothyroidism, unspecified SNOMED: 96990874 (2) ESRD (end stage renal disease) on dialysis ICD Codes: N18.6 - End stage renal disease; Z99.2 - Dependence on renal dialysis SNOMED: 363320587 (3) Hypotension ICD Codes: I95.9 - Hypotension, unspecified SNOMED: 79069078 Qualifiers: Qualified Codes: I95.3 - Hypotension of hemodialysis (4) Pneumonia ICD Codes: J18.9 - Pneumonia, unspecified organism SNOMED: 285102023 Qualifiers: Qualified Codes: J18.9 - Pneumonia, unspecified organism (5) Diabetes mellitus ICD Codes: E11.9 - Type 2 diabetes mellitus without complications SNOMED: 48219578 Status: stable, not improved, unchanged, deteriorating Assessment/Plan: TSH improved and normalized - he was treated with Levothyroxine IV 50 mcg for couple of weeks currently converted to Levothyroxine 50 mcg tablet - increase Levothyroxine tablet dose to 100 mcg daily - repeat TSH, free 4 in one week continue glucose monitoring without insulin coverage hypoglycemia protocol in order Subjective ROS Limited/Unobtainable: Yes Allergies: Coded Allergies: VANCOMYCIN (Unverified Allergy, Unknown, 08/02/19) Subjective events noted interval notes reviewed trach / vent glucose values are stable Item Value Date Time Bedside Blood Glucose 133 mg/dl H 09/13/19 0600 Bedside Blood Glucose 96 mg/dl 09/13/19 0030 Bedside Blood Glucose 102 mg/dl 09/12/19 1800 Bedside Blood Glucose 83 mg/dl 09/12/19 1248 Bedside Blood Glucose 126 mg/dl H 09/12/19 0600 Objective Last 24 Hour Vital Signs Date Time Temp Pulse Resp B/P (MAP) Pulse Ox O2 Delivery O2 Flow Rate FiO2 09/13/19 07:12 70 18 30 09/13/19 06:11 146/79 09/13/19 05:30 85 24 30 09/13/19 04:00 97.5 74 20 146/79 (101) 100 09/13/19 04:00 30 09/13/19 04:00 Mechanical Ventilator Mechanical Ventilator Mechanical Ventilator Mechanical Ventilator 09/13/19 04:00 70 09/13/19 03:12 73 19 100 Mechanical Ventilator 30 75 20 30 09/13/19 01:30 86 21 30 09/13/19 00:18 146/77 09/13/19 00:00 97.2 77 18 146/77 (100) 99 09/12/19 23:50 30 09/12/19 23:46 Mechanical Ventilator Mechanical Ventilator Mechanical Ventilator Mechanical Ventilator 09/12/19 23:30 74 18 100 Mechanical Ventilator 30 76 21 30 09/12/19 23:26 93 09/12/19 20:31 80 21 30 09/12/19 20:00 97.3 78 20 147/69 (95) 100 09/12/19 20:00 Mechanical Ventilator Mechanical Ventilator Mechanical Ventilator Mechanical Ventilator 09/12/19 20:00 83 09/12/19 20:00 30 09/12/19 19:30 84 24 100 Mechanical Ventilator 30 88 24 30 09/12/19 17:53 157/79 09/12/19 17:46 82 157/79 09/12/19 16:51 81 21 30 09/12/19 16:00 97.6 82 21 152/77 (102) 100 09/12/19 16:00 30 09/12/19 16:00 Mechanical Ventilator Mechanical Ventilator Mechanical Ventilator Mechanical Ventilator 09/12/19 16:00 86 09/12/19 14:37 83 19 100 Mechanical Ventilator 30 81 21 30 09/12/19 13:45 147/75 09/12/19 12:58 84 20 30 09/12/19 12:00 Mechanical Ventilator Mechanical Ventilator Mechanical Ventilator Mechanical Ventilator 09/12/19 12:00 97.7 82 22 148/75 (99) 98 09/12/19 12:00 157/79 09/12/19 12:00 30 09/12/19 11:37 81 09/12/19 10:51 80 20 100 Mechanical Ventilator 30 77 20 30 09/12/19 10:48 98 09/12/19 09:36 79 18 30 09/12/19 09:31 83 147/91 09/12/19 08:00 82 09/12/19 08:00 30 09/12/19 08:00 97.7 82 22 147/76 (99) 98 09/12/19 08:00 Mechanical Ventilator Mechanical Ventilator Mechanical Ventilator Mechanical Ventilator Intake and Output 09/12/19 09/13/19 19:00 07:00 Intake Total 720 ml 485 ml Output Total 300 ml 250 ml Balance 420 ml 235 ml Intake Free Water 300 ml 100 ml Tube Feeding 420 ml 385 ml Output Urine Total 300 ml 250 ml # Bowel Movements 1 Height (Feet): 5 Height (Inches): 4.00 Weight (Pounds): 112 General Appearance: other - on vent EENT: other - tracheostomy Cardiovascular: normal rate Respiratory/Chest: lungs clear Abdomen: normal bowel sounds Pelvis: normal external exam Objective Current Medications Medications (Trade) Dose Ordered Sig/Javier Route PRN Reason Start Time Stop Time Status Last Admin Dose Admin Acetaminophen (Tylenol) 650 mg Q4H PRN GT Mild Pain/Temp > 100.5 09/03/19 07:00 10/03/19 06:59 09/09/19 06:13 Acetylcysteine (Mucomyst) 100 mg Q4HRT [facility] 08/31/19 19:00 11/29/19 18:59 09/13/19 03:12 Albuterol/ Ipratropium (Albuterol/ Ipratropium) 3 ml Q4HRT [facility] 09/11/19 11:00 09/16/19 10:59 09/13/19 03:12 Amlodipine Besylate (Norvasc) 5 mg BID NG 08/23/19 01:45 09/22/19 01:44 09/12/19 17:46 Chlorhexidine Gluconate (Nae-Hex 2%) 1 applic DAILY@1999 TOPIC 08/15/19 20:00 09/14/19 19:59 09/13/19 00:17 Dextrose (Dextrose 50%) 25 ml Q30M PRN IV Hypoglycemia 09/02/19 06:15 12/01/19 06:14 09/04/19 12:11 Dextrose (Dextrose 50%) 50 ml Q30M PRN IV Hypoglycemia 09/02/19 06:15 12/01/19 06:14 Hydralazine HCl (Apresoline) 10 mg Q4H PRN IV For High Blood Pressure 08/18/19 12:44 09/17/19 12:43 09/01/19 20:27 Hydralazine HCl (Apresoline) 25 mg Q6HR NG 08/23/19 06:00 09/22/19 05:59 09/13/19 06:11 Lansoprazole (Prevacid) 30 mg BID GT 08/19/19 09:00 09/18/19 08:59 09/12/19 17:45 Levothyroxine Sodium (Synthroid) 50 mcg DAILY@0630 ORAL 08/25/19 06:30 09/24/19 06:29 09/13/19 06:11 Antonio Jacome MD Sep 13, 2019 07:28
--- NOTE | 2019-09-13 09:30 | Critical Care Progress Note ---
Assessment/Plan Assessment/Plan respiratory failure hemoptysis resolved hypoxemia chronic renal failure toxic met encephalopathy severe protein calorie malnutrition cachexia left lung whiteout/collapse, improved with intubation s/p intubation anemia ? blood loss pulmonary edema with elevated BNP + pleural effusion ? hemothorax s/p CT placement and removal s/p trach PLAN trach care as is monitor effusion for change care noted and reviewed monitor for fluid retention reviewed care and continue to monitor not able to wean prognosis poor overall for change keep negative and monitor osmotic pressures nontoxic close follow up discussed elevated head and monitor ROM watch fluid status and keep negative nutrition and monitor residuals isolation reviewed off load as able and monitor skin exam ROM as able and monitor contractures impression, plan, and exam edited and reviewed in detail care discussed with print finisher - Subjective ROS Limited/Unobtainable: Yes Condition: unchanged EKG Rhythm: Sinus Rhythm Residuals: minimal Tube Feeding Tolerated: yes I&O: Intake and Output 09/12/19 09/13/19 19:00 07:00 Intake Total 720 ml 485 ml Output Total 300 ml 250 ml Balance 420 ml 235 ml Intake Free Water 300 ml 100 ml Tube Feeding 420 ml 385 ml Output Urine Total 300 ml 250 ml # Bowel Movements 1 Critical Care - Objective ET-Tube: 7.0 ET Position: 19 Last 24 Hour Vital Signs Date Time Temp Pulse Resp B/P (MAP) Pulse Ox O2 Delivery O2 Flow Rate FiO2 09/13/19 09:10 72 19 30 09/13/19 07:12 70 18 30 09/13/19 06:11 146/79 09/13/19 05:30 85 24 30 09/13/19 04:00 97.5 74 20 146/79 (101) 100 09/13/19 04:00 30 09/13/19 04:00 Mechanical Ventilator Mechanical Ventilator Mechanical Ventilator Mechanical Ventilator 09/13/19 04:00 70 09/13/19 03:12 73 19 100 Mechanical Ventilator 30 75 20 30 09/13/19 01:30 86 21 30 09/13/19 00:18 146/77 09/13/19 00:00 97.2 77 18 146/77 (100) 99 09/12/19 23:50 30 09/12/19 23:46 Mechanical Ventilator Mechanical Ventilator Mechanical Ventilator Mechanical Ventilator 09/12/19 23:30 74 18 100 Mechanical Ventilator 30 76 21 30 09/12/19 23:26 93 09/12/19 20:31 80 21 30 09/12/19 20:00 97.3 78 20 147/69 (95) 100 09/12/19 20:00 Mechanical Ventilator Mechanical Ventilator Mechanical Ventilator Mechanical Ventilator 09/12/19 20:00 83 09/12/19 20:00 30 09/12/19 19:30 84 24 100 Mechanical Ventilator 30 88 24 30 09/12/19 17:53 157/79 09/12/19 17:46 82 157/79 09/12/19 16:51 81 21 30 09/12/19 16:00 97.6 82 21 152/77 (102) 100 09/12/19 16:00 30 09/12/19 16:00 Mechanical Ventilator Mechanical Ventilator Mechanical Ventilator Mechanical Ventilator 09/12/19 16:00 86 09/12/19 14:37 83 19 100 Mechanical Ventilator 30 81 21 30 09/12/19 13:45 147/75 09/12/19 12:58 84 20 30 09/12/19 12:00 Mechanical Ventilator Mechanical Ventilator Mechanical Ventilator Mechanical Ventilator 09/12/19 12:00 97.7 82 22 148/75 (99) 98 09/12/19 12:00 157/79 09/12/19 12:00 30 09/12/19 11:37 81 09/12/19 10:51 80 20 100 Mechanical Ventilator 30 77 20 30 09/12/19 10:48 98 09/12/19 09:36 79 18 30 09/12/19 09:31 83 147/91 Labs: Labs Test 09/11/19 03:39 09/11/19 06:18 09/12/19 04:00 White Blood Count 10.7 K/UL (4.8-10.8) 8.6 K/UL (4.8-10.8) Red Blood Count 3.41 M/UL (4.20-5.40) 3.40 M/UL (4.20-5.40) Hemoglobin 10.3 G/DL (12.0-16.0) 10.0 G/DL (12.0-16.0) Hematocrit 30.4 % (37.0-47.0) 30.2 % (37.0-47.0) Mean Corpuscular Volume 89 FL (80-99) 89 FL (80-99) Mean Corpuscular Hemoglobin 30.1 PG (27.0-31.0) 29.5 PG (27.0-31.0) Mean Corpuscular Hemoglobin Concent 33.8 G/DL (32.0-36.0) 33.2 G/DL (32.0-36.0) Red Cell Distribution Width 15.4 % (11.6-14.8) 15.3 % (11.6-14.8) Platelet Count 344 K/UL (150-450) 374 K/UL (150-450) Mean Platelet Volume 4.7 FL (6.5-10.1) 4.5 FL (6.5-10.1) Neutrophils (%) (Auto) 77.3 % (45.0-75.0) 64.2 % (45.0-75.0) Lymphocytes (%) (Auto) 17.5 % (20.0-45.0) 29.2 % (20.0-45.0) Monocytes (%) (Auto) 3.8 % (1.0-10.0) 4.7 % (1.0-10.0) Eosinophils (%) (Auto) 1.0 % (0.0-3.0) 1.1 % (0.0-3.0) Basophils (%) (Auto) 0.4 % (0.0-2.0) 0.8 % (0.0-2.0) Sodium Level 142 MMOL/L (136-145) 145 MMOL/L (136-145) Potassium Level 3.5 MMOL/L (3.5-5.1) 3.5 MMOL/L (3.5-5.1) Chloride Level 104 MMOL/L (98-107) 106 MMOL/L (98-107) Carbon Dioxide Level 31 MMOL/L (21-32) 25 MMOL/L (21-32) Anion Gap 7 mmol/L (5-15) 14 mmol/L (5-15) Blood Urea Nitrogen 49 mg/dL (7-18) 57 mg/dL (7-18) Creatinine 3.3 MG/DL (0.55-1.30) 3.5 MG/DL (0.55-1.30) Estimat Glomerular Filtration Rate 13.5 mL/min (>60) 12.6 mL/min (>60) Glucose Level 137 MG/DL (74-106) 126 MG/DL (74-106) Calcium Level 8.8 MG/DL (8.5-10.1) 9.2 MG/DL (8.5-10.1) Phosphorus Level 3.8 MG/DL (2.5-4.9) 3.6 MG/DL (2.5-4.9) Magnesium Level 2.0 MG/DL (1.8-2.4) 2.1 MG/DL (1.8-2.4) Total Bilirubin 0.6 MG/DL (0.2-1.0) 0.7 MG/DL (0.2-1.0) Aspartate Amino Transf (AST/SGOT) 36 U/L (15-37) 43 U/L (15-37) Alanine Aminotransferase (ALT/SGPT) 11 U/L (12-78) 21 U/L (12-78) Alkaline Phosphatase 163 U/L (46-116) 139 U/L (46-116) C-Reactive Protein, Quantitative 34.2 mg/dL (0.00-0.90) Pro-B-Type Natriuretic Peptide > 89662 pg/mL (0-125) Total Protein 7.1 G/DL (6.4-8.2) 7.0 G/DL (6.4-8.2) Albumin 2.3 G/DL (3.4-5.0) 2.3 G/DL (3.4-5.0) Globulin 4.8 g/dL 4.7 g/dL Albumin/Globulin Ratio 0.5 (1.0-2.7) 0.5 (1.0-2.7) Thyroid Stimulating Hormone (TSH) 2.434 uiU/mL (0.358-3.740) Free Thyroxine 1.36 NG/DL (0.76-1.46) Objective: WDWN NAD trach in place reduced breath sounds scattered rhonchi; [id number] without MRG NABS nontender no HSM no CCE contractures feeding tube in place no distention reduced LOC and weak nonfocal cachectic reviewed and edited Accucheck: 133 Malcolm Cruz MD Sep 13, 2019 09:30
--- NOTE | 2019-09-13 11:08 | Infectious Diseases Prog Note ---
Assessment/Plan Assessment/Plan antibiotics : none A 1. jarad albicans fungemia s/p rx 2. right shoulder septic arthritis with staph aureus s/p rx 3. renal failure 4. thrombocytopenia resolved 7. diabetes mellitus 8. hypertension 9. respiratory failure P 1. observe off antibiotics Subjective ROS Limited/Unobtainable: Yes Allergies: Coded Allergies: VANCOMYCIN (Unverified Allergy, Unknown, 08/02/19) Objective Vital Signs Last 24 Hour Vital Signs Date Time Temp Pulse Resp B/P (MAP) Pulse Ox O2 Delivery O2 Flow Rate FiO2 09/13/19 09:10 72 19 30 09/13/19 08:00 97.5 72 24 165/89 (114) 99 09/13/19 08:00 30 09/13/19 08:00 Mechanical Ventilator Mechanical Ventilator Mechanical Ventilator Mechanical Ventilator 09/13/19 07:12 70 18 30 09/13/19 06:11 146/79 09/13/19 05:30 85 24 30 09/13/19 04:00 97.5 74 20 146/79 (101) 100 09/13/19 04:00 30 09/13/19 04:00 Mechanical Ventilator Mechanical Ventilator Mechanical Ventilator Mechanical Ventilator 09/13/19 04:00 70 09/13/19 03:12 73 19 100 Mechanical Ventilator 30 75 20 30 09/13/19 01:30 86 21 30 09/13/19 00:18 146/77 09/13/19 00:00 97.2 77 18 146/77 (100) 99 09/12/19 23:50 30 09/12/19 23:46 Mechanical Ventilator Mechanical Ventilator Mechanical Ventilator Mechanical Ventilator 09/12/19 23:30 74 18 100 Mechanical Ventilator 30 76 21 30 09/12/19 23:26 93 09/12/19 20:31 80 21 30 09/12/19 20:00 97.3 78 20 147/69 (95) 100 09/12/19 20:00 Mechanical Ventilator Mechanical Ventilator Mechanical Ventilator Mechanical Ventilator 09/12/19 20:00 83 09/12/19 20:00 30 09/12/19 19:30 84 24 100 Mechanical Ventilator 30 88 24 30 09/12/19 17:53 157/79 09/12/19 17:46 82 157/79 09/12/19 16:51 81 21 30 09/12/19 16:00 97.6 82 21 152/77 (102) 100 09/12/19 16:00 30 09/12/19 16:00 Mechanical Ventilator Mechanical Ventilator Mechanical Ventilator Mechanical Ventilator 09/12/19 16:00 86 09/12/19 14:37 83 19 100 Mechanical Ventilator 30 81 21 30 09/12/19 13:45 147/75 09/12/19 12:58 84 20 30 09/12/19 12:00 Mechanical Ventilator Mechanical Ventilator Mechanical Ventilator Mechanical Ventilator 09/12/19 12:00 97.7 82 22 148/75 (99) 98 09/12/19 12:00 157/79 09/12/19 12:00 30 09/12/19 11:37 81 Height (Feet): 5 Height (Inches): 4.00 Weight (Pounds): 112 HEENT: status post trach Respiratory/Chest: lungs clear Cardiovascular: normal rate, regular rhythm, no gallop/murmur Abdomen: soft, non tender, other - GT Extremities: no edema, other - right groin catheter Current Medications Medications (Trade) Dose Ordered Sig/Javier Route PRN Reason Start Time Stop Time Status Last Admin Dose Admin Acetaminophen (Tylenol) 650 mg Q4H PRN GT Mild Pain/Temp > 100.5 09/03/19 07:00 10/03/19 06:59 09/09/19 06:13 Acetylcysteine (Mucomyst) 100 mg Q4HRT N 08/31/19 19:00 11/29/19 18:59 09/13/19 03:12 Albuterol/ Ipratropium (Albuterol/ Ipratropium) 3 ml Q4HRT [facility] 09/11/19 11:00 09/16/19 10:59 09/13/19 03:12 Amlodipine Besylate (Norvasc) 5 mg BID NG 08/23/19 01:45 09/22/19 01:44 09/12/19 17:46 Chlorhexidine Gluconate (Nae-Hex 2%) 1 applic DAILY@1999 TOPIC 08/15/19 20:00 09/14/19 19:59 09/13/19 00:17 Dextrose (Dextrose 50%) 25 ml Q30M PRN IV Hypoglycemia 09/02/19 06:15 12/01/19 06:14 09/04/19 12:11 Dextrose (Dextrose 50%) 50 ml Q30M PRN IV Hypoglycemia 09/02/19 06:15 12/01/19 06:14 Hydralazine HCl (Apresoline) 10 mg Q4H PRN IV For High Blood Pressure 08/18/19 12:44 09/17/19 12:43 09/01/19 20:27 Hydralazine HCl (Apresoline) 25 mg Q6HR NG 08/23/19 06:00 09/22/19 05:59 09/13/19 06:11 Lansoprazole (Prevacid) 30 mg BID GT 08/19/19 09:00 09/18/19 08:59 09/13/19 10:11 Levothyroxine Sodium (Synthroid) 100 mcg DAILY@0630 ORAL 09/14/19 06:30 09/24/19 06:29 Melissa Solares MD Sep 13, 2019 11:08
--- NOTE | 2019-09-13 11:30 | Nephrology Progress Note ---
Assessment/Plan Problem List: (1) ESRD (end stage renal disease) on dialysis (2) Malnutrition (3) Anemia in CKD (chronic kidney disease) (4) Hypotension (5) Thrombocytopenia (6) Sepsis Assessment: klebsiella in blood Assessment -Early sepsis with shock. -Healthcare-associated pneumonia. -Severe protein-calorie malnutrition. -Thrombocytopenia. - End-stage renal disease. - History of hypertension. - Bradycardia. - HypoThyroid Plan No labs drawn today Tracheostomy September 07 Last dialysis September 07, next will be September 12 Chest tube on the left side was put in on September 01 was discontinued September 07 Patient transfused 3 units of packed RBCs for low hemoglobin Remains full code Blood pressure fluctuating, will start hydralazine via NG tube for blood pressure Magnesium and potassium supplement intravenously as needed Patient underwent PEG placement August 16 patient remains intubated on ventilator Discussed with RN Aim to wean from ventilator or consider tracheostomy Permacath was removed on August 12 Dialysis 08/11 Transfusion as needed Patient had hematemesis meds IV as possible Surveillance blood cultures tomorrow Plan to put the permacath back in on Thursday if cultures are negative keep BP and BS in check Inflammatory markers per orders Subjective ROS Limited/Unobtainable: Yes Objective Objective Last 24 Hour Vital Signs Date Time Temp Pulse Resp B/P (MAP) Pulse Ox O2 Delivery O2 Flow Rate FiO2 09/13/19 11:14 80 20 100 Mechanical Ventilator 30 80 20 30 09/13/19 09:10 72 19 30 09/13/19 08:00 97.5 72 24 165/89 (114) 99 09/13/19 08:00 30 09/13/19 08:00 Mechanical Ventilator Mechanical Ventilator Mechanical Ventilator Mechanical Ventilator 09/13/19 07:12 70 18 30 09/13/19 06:11 146/79 09/13/19 05:30 85 24 30 09/13/19 04:00 97.5 74 20 146/79 (101) 100 09/13/19 04:00 30 09/13/19 04:00 Mechanical Ventilator Mechanical Ventilator Mechanical Ventilator Mechanical Ventilator 09/13/19 04:00 70 09/13/19 03:12 73 19 100 Mechanical Ventilator 30 75 20 30 09/13/19 01:30 86 21 30 09/13/19 00:18 146/77 09/13/19 00:00 97.2 77 18 146/77 (100) 99 09/12/19 23:50 30 3/30/20 23:46 Mechanical Ventilator Mechanical Ventilator Mechanical Ventilator Mechanical Ventilator 09/12/19 23:30 74 18 100 Mechanical Ventilator 30 76 21 30 09/12/19 23:26 93 09/12/19 20:31 80 21 30 09/12/19 20:00 97.3 78 20 147/69 (95) 100 09/12/19 20:00 Mechanical Ventilator Mechanical Ventilator Mechanical Ventilator Mechanical Ventilator 09/12/19 20:00 83 09/12/19 20:00 30 09/12/19 19:30 84 24 100 Mechanical Ventilator 30 88 24 30 09/12/19 17:53 157/79 09/12/19 17:46 82 157/79 09/12/19 16:51 81 21 30 09/12/19 16:00 97.6 82 21 152/77 (102) 100 09/12/19 16:00 30 09/12/19 16:00 Mechanical Ventilator Mechanical Ventilator Mechanical Ventilator Mechanical Ventilator 09/12/19 16:00 86 09/12/19 14:37 83 19 100 Mechanical Ventilator 30 81 21 30 09/12/19 13:45 147/75 09/12/19 12:58 84 20 30 09/12/19 12:00 Mechanical Ventilator Mechanical Ventilator Mechanical Ventilator Mechanical Ventilator 09/12/19 12:00 97.7 82 22 148/75 (99) 98 09/12/19 12:00 157/79 09/12/19 12:00 30 09/12/19 11:37 81 Intake and Output 09/12/19 09/13/19 19:00 07:00 Intake Total 720 ml 485 ml Output Total 300 ml 250 ml Balance 420 ml 235 ml Intake Free Water 300 ml 100 ml Tube Feeding 420 ml 385 ml Output Urine Total 300 ml 250 ml # Bowel Movements 1 No labs drawn today Height (Feet): 5 Height (Inches): 4.00 Weight (Pounds): 112 General Appearance: no apparent distress, lethargic EENT: other - Trach to ventilator Cardiovascular: normal rate Respiratory/Chest: decreased breath sounds Abdomen: soft, other - GT feeding on Objective no change William Blackwood MD Sep 13, 2019 11:30
--- NOTE | 2019-09-13 13:51 | Surgery Progress Note ---
Surgery Progress Note Subjective Procedure Performed 1. tracheostomy 2 removal of left tube thoracostomy Symptoms: improved Objective Last 24 Hour Vital Signs Date Time Temp Pulse Resp B/P (MAP) Pulse Ox O2 Delivery O2 Flow Rate FiO2 09/13/19 12:56 69 18 30 09/13/19 12:00 Mechanical Ventilator Mechanical Ventilator Mechanical Ventilator Mechanical Ventilator 09/13/19 12:00 96.5 67 18 169/82 (111) 100 09/13/19 11:14 80 20 100 Mechanical Ventilator 30 80 20 30 09/13/19 09:10 72 19 30 09/13/19 08:00 97.5 72 24 165/89 (114) 99 09/13/19 08:00 30 09/13/19 08:00 Mechanical Ventilator Mechanical Ventilator Mechanical Ventilator Mechanical Ventilator 09/13/19 07:56 78 09/13/19 07:12 70 18 30 09/13/19 06:11 146/79 09/13/19 05:30 85 24 30 09/13/19 04:00 97.5 74 20 146/79 (101) 100 09/13/19 04:00 30 09/13/19 04:00 Mechanical Ventilator Mechanical Ventilator Mechanical Ventilator Mechanical Ventilator 09/13/19 04:00 70 09/13/19 03:12 73 19 100 Mechanical Ventilator 30 75 20 30 09/13/19 01:30 86 21 30 09/13/19 00:18 146/77 09/13/19 00:00 97.2 77 18 146/77 (100) 99 09/12/19 23:50 30 09/12/19 23:46 Mechanical Ventilator Mechanical Ventilator Mechanical Ventilator Mechanical Ventilator 09/12/19 23:30 74 18 100 Mechanical Ventilator 30 76 21 30 09/12/19 23:26 93 09/12/19 20:31 80 21 30 09/12/19 20:00 97.3 78 20 147/69 (95) 100 09/12/19 20:00 Mechanical Ventilator Mechanical Ventilator Mechanical Ventilator Mechanical Ventilator 09/12/19 20:00 83 09/12/19 20:00 30 09/12/19 19:30 84 24 100 Mechanical Ventilator 30 88 24 30 09/12/19 17:53 157/79 09/12/19 17:46 82 157/79 09/12/19 16:51 81 21 30 09/12/19 16:00 97.6 82 21 152/77 (102) 100 09/12/19 16:00 30 09/12/19 16:00 Mechanical Ventilator Mechanical Ventilator Mechanical Ventilator Mechanical Ventilator 09/12/19 16:00 86 09/12/19 14:37 83 19 100 Mechanical Ventilator 30 81 21 30 I&O Intake and Output 09/12/19 09/13/19 19:00 07:00 Intake Total 720 ml 485 ml Output Total 300 ml 250 ml Balance 420 ml 235 ml Intake Free Water 300 ml 100 ml Tube Feeding 420 ml 385 ml Output Urine Total 300 ml 250 ml # Bowel Movements 1 Dressing: saturated Wound: clean Cardiovascular: RSR Respiratory: clear Abdomen: soft, non-tender, present bowel sounds Extremities: no edema, no tenderness, no cyanosis Assessment Post-op Diagnosis same Plan Problems: (1) Malnutrition Assessment & Plan: DAILY ESTIMATED NEEDS: Needs based on ESRD+ HD, underweight, wound/ 39.5kg 35-40 kcals/kg 0635-3484 total kcals 1.25-1.8 g protein/kg 49-71 g total protein 20-22 mL/kg 790-869 total fluid mLs NUTRITION DIAGNOSIS: * Increased kcal and protein needs r/t underweight status, HD needs, wuond healing as evidenced by pt is underweight per guidelines, ESRD, on HD, admitted non-blanching erythema wounds @ BL heels and sacrum * Swallowing difficulty R/T dysphagia as evidenced by ELECTRICAL MACHINIST recommends temporary nonoral feeding at this time, s/p NGT insertion, on NGT feeding-> now s/p self removal, NPO. CURRENT TF:NPO PO DIET RECOMMENDATIONS: WHEN SAFE FOR ORAL DIET -> renal/ texture per ELECTRICAL MACHINIST ENTERAL NUTRITION RECOMMENDATIONS: W/ GI access: Nepro @ 35ml/hr x 22 hrs to provide 770ml, 1386kcal, 62g prot, 560ml free water * W/ GI access, resume TF on Nepro * Initiate Nepro @ 15ml/hr x 6 hrs, advance 10ml q 4-6 hrs as tolerated to goal rate. * Hold 1 hour before and after Synthroid med * HOB over 30 degrees/ water flush per MD. ADDITIONAL RECOMMENDATIONS: 1) Calibrated bed scale wt for accurate CBW -> daily wt monitoring Per HD record: dry wt on 07/30=39.5kg (87lbs) 2) Wound care: (W/ GI access) add Nephorivte x 1 + Balta BID 3) Monitor NPO status: without GI access at this time, s/p pulling out NGT 4) Monitor for hypoglycemia while NPO 5) Monitor for continuity of HD (2) Septic arthritis Assessment & Plan: Pt presented on admission with generalized scaly rash . pt noted to be restless and scratching at skin. Bleeding from oral mucosa noted. Joint deformity noted to R shoulder. Surgical incision approximated with 11 sutures. Erythema but no exudate,or elevation in skin temp at site of incision. Historical incision R hip that is tunneled.Small amt seropurulent exudate noted. Periwound is erythematous,but no elevation in skin temp noted. No odor noted. Non-blanching erythema noted to sacrum. Perianal area is erythematous and excoriated. L heel is boggy with non-blanching erythema. R heel is soft with non-blanching erythema. No evidence of skin breakdown to all other bony prominences. Tx.plan: Cover R shoulder with Drsg and change daily and prn. Cleanse R hip wound with Saline. Apply Therahoney.Apply Cavilon Skin Barrier periwound. Cover with Optifoam drsg. Change every 3 days and prn. Apply Moisture Barrier Paste to perianal area and buttocks. Cover Sacrum with Optifoam drsg. Change every 3 days and prn. Apply Cavilon Skin Barrier to both heels. Cover each heel with Optifoam drsg. Change every 7 days and prn. APM/ELVIA Mattress overlay. Reposition at least every 2hours or as tolerated. Off-load heels with pillow. HD cath necessary HD as renal likely will need intubation (3) Wound, open, hip or thigh with complication Assessment & Plan: slow healing will need nutritional optimization difficult ng tube peg when stable sutures removed from right shoulder comfortable wean vent may need trach (4) Abscess of right hip (5) possible septic arthritis (6) Renal failure (ARF), acute on chronic Assessment & Plan: cont HD will need tunneled cath placement okay to use fem line for now but will need change soon. line monitored and clean dressings going well (7) Pneumonia Assessment & Plan: intubated on vent support not tolerating weaning may need trach hemothorax likely after thoracentesis Chest CT noted Left chest tube placed With plan for trach chest tube can be considered but overall prognosis is very poor s/p trach left chest tub eout cxr noted and okay downgrade Camilo James Sep 13, 2019 13:51
--- NOTE | 2019-09-13 14:40 | General Progress Note ---
Assessment/Plan Problem List: (1) Failure to thrive (0-17) ICD Codes: R62.51 - Failure to thrive (0-17) SNOMED: 613758197 (2) Hypertensive kidney disease ICD Codes: I12.9 - Hypertensive chronic kidney disease with stage 1 through stage 4 chronic kidney disease, or unspecified chronic kidney disease SNOMED: 21015656 (3) Pneumonia ICD Codes: J18.9 - Pneumonia, unspecified organism SNOMED: 887201558 Qualifiers: Qualified Codes: J18.9 - Pneumonia, unspecified organism (4) ESRD (end stage renal disease) ICD Codes: N18.6 - End stage renal disease SNOMED: 39131179 (5) Septic arthritis ICD Codes: M00.9 - Pyogenic arthritis, unspecified SNOMED: 615123479 (6) Thrombocytopenia ICD Codes: D69.6 - Thrombocytopenia, unspecified SNOMED: 492354287 (7) Hypotension ICD Codes: I95.9 - Hypotension, unspecified SNOMED: 25076851 Qualifiers: Qualified Codes: I95.3 - Hypotension of hemodialysis (8) Malnutrition ICD Codes: E46 - Unspecified protein-calorie malnutrition SNOMED: 35932236 Status: stable, not improved, unchanged, deteriorating Assessment/Plan: Continue ventilatory support. Respiratory treatments and suctioning. Monitor chest x-ray. Hemodialysis per renal. Monitor labs. After off antibiotics. Surgery follow-up regarding leaking from old chest tube site. Continue tube with monitor residuals. Discharge planning. Subjective ROS Limited/Unobtainable: Yes Constitutional: Reports: malaise, weakness HEENT: Reports: no symptoms Cardiovascular: Reports: no symptoms Respiratory: Reports: cough, shortness of breath, sputum Gastrointestinal/Abdominal: Reports: difficulty swallowing Genitourinary: Reports: no symptoms Neurologic/Psychiatric: Reports: anxiety, pre-existing deficit Endocrine: Reports: no symptoms Hematologic/Lymphatic: Reports: anemia Allergies: Coded Allergies: VANCOMYCIN (Unverified Allergy, Unknown, 08/02/19) Subjective The patient made it on the stepdown unit. She is currently on vent support. There is no congestion or significant secretions. Patient is tolerating G-tube feeds on any. Patient opens her eyes and does respond. She continues on hemodialysis 3 times a week All quality compliance consultant notes reviewed. Objective Last 24 Hour Vital Signs Date Time Temp Pulse Resp B/P (MAP) Pulse Ox O2 Delivery O2 Flow Rate FiO2 09/13/19 12:56 69 18 30 09/13/19 12:00 Mechanical Ventilator Mechanical Ventilator Mechanical Ventilator Mechanical Ventilator 09/13/19 12:00 96.5 67 18 169/82 (111) 100 09/13/19 11:14 80 20 100 Mechanical Ventilator 30 80 20 30 09/13/19 09:10 72 19 30 09/13/19 08:00 97.5 72 24 165/89 (114) 99 09/13/19 08:00 30 09/13/19 08:00 Mechanical Ventilator Mechanical Ventilator Mechanical Ventilator Mechanical Ventilator 09/13/19 07:56 78 09/13/19 07:12 70 18 30 09/13/19 06:11 146/79 09/13/19 05:30 85 24 30 09/13/19 04:00 97.5 74 20 146/79 (101) 100 09/13/19 04:00 30 09/13/19 04:00 Mechanical Ventilator Mechanical Ventilator Mechanical Ventilator Mechanical Ventilator 09/13/19 04:00 70 09/13/19 03:12 73 19 100 Mechanical Ventilator 30 75 20 30 09/13/19 01:30 86 21 30 09/13/19 00:18 146/77 09/13/19 00:00 97.2 77 18 146/77 (100) 99 09/12/19 23:50 30 09/12/19 23:46 Mechanical Ventilator Mechanical Ventilator Mechanical Ventilator Mechanical Ventilator 09/12/19 23:30 74 18 100 Mechanical Ventilator 30 76 21 30 09/12/19 23:26 93 09/12/19 20:31 80 21 30 09/12/19 20:00 97.3 78 20 147/69 (95) 100 09/12/19 20:00 Mechanical Ventilator Mechanical Ventilator Mechanical Ventilator Mechanical Ventilator 09/12/19 20:00 83 09/12/19 20:00 30 09/12/19 19:30 84 24 100 Mechanical Ventilator 30 88 24 30 09/12/19 17:53 157/79 09/12/19 17:46 82 157/79 09/12/19 16:51 81 21 30 09/12/19 16:00 97.6 82 21 152/77 (102) 100 09/12/19 16:00 30 09/12/19 16:00 Mechanical Ventilator Mechanical Ventilator Mechanical Ventilator Mechanical Ventilator 09/12/19 16:00 86 09/12/19 14:37 83 19 100 Mechanical Ventilator 30 81 21 30 Intake and Output 09/12/19 09/13/19 19:00 07:00 Intake Total 720 ml 485 ml Output Total 300 ml 250 ml Balance 420 ml 235 ml Intake Free Water 300 ml 100 ml Tube Feeding 420 ml 385 ml Output Urine Total 300 ml 250 ml # Bowel Movements 1 Height (Feet): 5 Height (Inches): 4.00 Weight (Pounds): 112 Objective General Appearance: WD/WN, awake/moaning. Neck: supple +trach Cardiovascular: normal rate Respiratory/Chest: rhonchi - bilaterally Abdomen: normal bowel sounds, non tender, soft, no organomegaly Edema: no edema noted Arm (L), no edema noted Arm (R), no edema noted Leg (L), no edema noted Leg (R), no edema noted Pedal (L), no edema noted Pedal (R), no edema noted Generalized Neurologic: disoriented, aphasia Nate Beltran MD Sep 13, 2019 14:40
--- NOTE | 2019-09-13 20:15 | General Progress Note ---
Assessment/Plan Status: stable, not improved, unchanged, deteriorating Assessment/Plan: Assessment - Severe ulcerative esophagitis - Resp failure - s/p recent Chest tube - thrombocytopenia --> resolved - Renal failure - aspiration risk --> s/p PEG - anemia - mild elevation in alk phos - bradycardia - Poor prognosis Recommendations - GT care - water flushes - elevate HOB - monitor H&H - follow LFT - vent Subjective Allergies: Coded Allergies: VANCOMYCIN (Unverified Allergy, Unknown, 08/02/19) Subjective Above noted No events overnight d/w RN Objective Last 24 Hour Vital Signs Date Time Temp Pulse Resp B/P (MAP) Pulse Ox O2 Delivery O2 Flow Rate FiO2 09/13/19 17:48 85 148/80 09/13/19 17:48 148/80 09/13/19 17:33 96.5 85 18 148/80 (102) 100 09/13/19 17:20 84 20 30 09/13/19 16:10 30 09/13/19 16:00 Mechanical Ventilator Mechanical Ventilator Mechanical Ventilator Mechanical Ventilator 09/13/19 16:00 97.0 85 18 157/65 (95) 100 09/13/19 15:54 76 09/13/19 14:39 64 18 30 09/13/19 12:56 69 18 30 09/13/19 12:00 Mechanical Ventilator Mechanical Ventilator Mechanical Ventilator Mechanical Ventilator 09/13/19 12:00 30 09/13/19 12:00 96.5 67 18 169/82 (111) 100 09/13/19 11:56 62 09/13/19 11:14 80 20 100 Mechanical Ventilator 30 80 20 30 09/13/19 09:10 72 19 30 09/13/19 08:00 97.5 72 24 165/89 (114) 99 09/13/19 08:00 30 09/13/19 08:00 Mechanical Ventilator Mechanical Ventilator Mechanical Ventilator Mechanical Ventilator 09/13/19 07:56 78 09/13/19 07:12 70 18 30 09/13/19 06:11 146/79 09/13/19 05:30 85 24 30 09/13/19 04:00 97.5 74 20 146/79 (101) 100 09/13/19 04:00 30 09/13/19 04:00 Mechanical Ventilator Mechanical Ventilator Mechanical Ventilator Mechanical Ventilator 09/13/19 04:00 70 09/13/19 03:12 73 19 100 Mechanical Ventilator 30 75 20 30 09/13/19 01:30 86 21 30 09/13/19 00:18 146/77 09/13/19 00:00 97.2 77 18 146/77 (100) 99 09/12/19 23:50 30 09/12/19 23:46 Mechanical Ventilator Mechanical Ventilator Mechanical Ventilator Mechanical Ventilator 09/12/19 23:30 74 18 100 Mechanical Ventilator 30 76 21 30 09/12/19 23:26 93 09/12/19 20:31 80 21 30 Intake and Output 09/12/19 09/13/19 19:00 07:00 Intake Total 720 ml 520 ml Output Total 300 ml 250 ml Balance 420 ml 270 ml Intake Free Water 300 ml 100 ml Tube Feeding 420 ml 420 ml Output Urine Total 300 ml 250 ml # Bowel Movements 1 Height (Feet): 5 Height (Inches): 4.00 Weight (Pounds): 112 Objective Debilitated frail woman NCAT (+) on vent supple, (+) trach scattered ronchi RR abd soft ND NT, (+) GT no edema Cristy Elizondo MD Sep 13, 2019 20:15
[2019-09-14] VITALS: BP 154/83
--- NOTE | 2019-09-14 01:15 | Progress Note ---
DATE: 09/13/2019 CARDIOLOGY PROGRESS NOTE SUBJECTIVE: The patient remains on ventilator support via tracheostomy. Continues to require respiratory hygiene, suctioning, and bronchodilator treatments. Remains on hemodialysis. Monitored rhythm, sinus. No bradycardic episodes any longer noted. There is some leakage noted from prior chest tube site. PHYSICAL EXAMINATION: VITAL SIGNS: Blood pressure 169/82, heart rate 67, respiratory rate 18, and afebrile. LUNGS: Bilateral breath sounds. Scattered rhonchi. CARDIAC: Regular rhythm and rate. Normal S1 and S2. CHEST: Left chest wall with slight drainage at old chest tube site. No signs of secondary infection. EXTREMITIES: Without edema. IMPRESSION: 1. Ventilator-dependent respiratory failure, status post tracheostomy. 2. End-stage renal disease. 3. Hypertensive heart disease. 4. Bradyarrhythmias, resolved. 5. Acute on chronic diastolic congestive heart failure, clinically compensated. 6. Chronically elevated natriuretic peptide essay due to renal disease. 7. Moderate to severe protein-calorie malnutrition, on feeding tube supplement. 8. Hypothyroidism, corrected. PLAN: 1. Continue as is. 2. No current change in cardiovascular regimen. 3. Needs transition to long-term care facility. 4. Medication regimen reviewed. Abel Stubbs M.D. DR: ARETHA JOB#: [id number] CC:
[2019-09-14] MEDS: HydrALAZINE 25mg tab NG SCH ×4 (01:30→17:15)
[2019-09-14] MEDS: Albuterol/Ipratropium 3ml neb HHN SCH ×6 (03:10→22:49)
[2019-09-14 04:00] VITALS: BP 155/86
[2019-09-14 06:54] LABS: BASOPHILS % (AUTO) 0.9 % (0.0-2.0); HEMATOCRIT 35.4 % (37.0-47.0); HEMOGLOBIN 11.7 G/DL (12.0-16.0); LYMPHOCYTES % (AUTO) 28.7 % (20.0-45.0); MEAN CORPUSCULAR VOLUME 89 FL (80-99); MONOCYTES % (AUTO) 4.7 % (1.0-10.0); NEUTROPHILS % (AUTO) 64.7 % (45.0-75.0); PLATELET COUNT 473 K/UL (150-450); RED BLOOD COUNT 3.97 M/UL (4.20-5.40); WHITE BLOOD COUNT 7.8 K/UL (4.8-10.8)
--- NOTE | 2019-09-14 06:55 | General Progress Note ---
Assessment/Plan Problem List: (1) Hypothyroid ICD Codes: E03.9 - Hypothyroidism, unspecified SNOMED: 32945333 (2) ESRD (end stage renal disease) on dialysis ICD Codes: N18.6 - End stage renal disease; Z99.2 - Dependence on renal dialysis SNOMED: 917008325 (3) Hypotension ICD Codes: I95.9 - Hypotension, unspecified SNOMED: 29074973 Qualifiers: Qualified Codes: I95.3 - Hypotension of hemodialysis (4) Pneumonia ICD Codes: J18.9 - Pneumonia, unspecified organism SNOMED: 925067739 Qualifiers: Qualified Codes: J18.9 - Pneumonia, unspecified organism (5) Diabetes mellitus ICD Codes: E11.9 - Type 2 diabetes mellitus without complications SNOMED: 33578799 Status: stable, not improved, unchanged, deteriorating Assessment/Plan: TSH improved and normalized - he was treated with Levothyroxine IV 50 mcg for couple of weeks - continue Levothyroxine tablet dose to 100 mcg daily - repeat TSH, free 4 in one week continue glucose monitoring without insulin coverage hypoglycemia protocol in order Subjective ROS Limited/Unobtainable: Yes Allergies: Coded Allergies: VANCOMYCIN (Unverified Allergy, Unknown, 08/02/19) Subjective events noted interval notes reviewed trach / vent glucose values are low normal Item Value Date Time Bedside Blood Glucose 89 mg/dl 09/14/19 0000 Bedside Blood Glucose 77 mg/dl 09/13/19 1800 Bedside Blood Glucose 110 mg/dl 09/13/19 1200 Objective Last 24 Hour Vital Signs Date Time Temp Pulse Resp B/P (MAP) Pulse Ox O2 Delivery O2 Flow Rate FiO2 09/14/19 05:25 66 20 30 09/14/19 04:00 Mechanical Ventilator Mechanical Ventilator Mechanical Ventilator Mechanical Ventilator 09/14/19 04:00 66 09/14/19 04:00 30 09/14/19 03:10 66 20 99 Mechanical Ventilator 30 68 20 30 09/14/19 01:30 75 18 30 09/14/19 01:30 154/83 09/14/19 00:00 97.7 70 24 154/83 (106) 100 09/14/19 00:00 Mechanical Ventilator Mechanical Ventilator Mechanical Ventilator Mechanical Ventilator 09/14/19 00:00 68 09/14/19 00:00 30 09/13/19 23:52 67 18 99 Mechanical Ventilator 30 69 28 30 09/13/19 21:02 69 18 30 09/13/19 20:00 76 09/13/19 20:00 30 09/13/19 20:00 98.1 88 24 151/76 (101) 100 09/13/19 20:00 30 09/13/19 20:00 Mechanical Ventilator Mechanical Ventilator Mechanical Ventilator Mechanical Ventilator 09/13/19 19:58 64 30 99 Mechanical Ventilator 30 64 28 30 09/13/19 17:48 85 148/80 09/13/19 17:48 148/80 09/13/19 17:33 96.5 85 18 148/80 (102) 100 09/13/19 17:20 84 20 30 09/13/19 16:10 30 09/13/19 16:00 Mechanical Ventilator Mechanical Ventilator Mechanical Ventilator Mechanical Ventilator 09/13/19 16:00 97.0 85 18 157/65 (95) 100 09/13/19 15:54 76 09/13/19 14:39 64 18 30 09/13/19 12:56 69 18 30 09/13/19 12:00 Mechanical Ventilator Mechanical Ventilator Mechanical Ventilator Mechanical Ventilator 09/13/19 12:00 30 09/13/19 12:00 96.5 67 18 169/82 (111) 100 09/13/19 11:56 62 09/13/19 11:14 80 20 100 Mechanical Ventilator 30 80 20 30 09/13/19 09:10 72 19 30 09/13/19 08:00 97.5 72 24 165/89 (114) 99 09/13/19 08:00 30 09/13/19 08:00 Mechanical Ventilator Mechanical Ventilator Mechanical Ventilator Mechanical Ventilator 09/13/19 07:56 78 09/13/19 07:12 70 18 30 Intake and Output 09/13/19 09/14/19 19:00 07:00 Intake Total 420 ml 315 ml Output Total 1200 ml Balance -780 ml 315 ml Tube Feeding 420 ml 315 ml Output Urine Total 200 ml Hemodialysis UF 1000 ml # Bowel Movements 4 3 Laboratory Tests 09/14/19 05:35: White Blood Count [Pending], Red Blood Count [Pending], Hemoglobin [Pending], Hematocrit [Pending], Mean Corpuscular Volume [Pending], Mean Corpuscular Hemoglobin [Pending], Mean Corpuscular Hemoglobin Concent [Pending], Red Cell Distribution Width [Pending], Platelet Count [Pending], Mean Platelet Volume [ Pending], Neutrophils (%) (Auto) [Pending], Lymphocytes (%) (Auto) [Pending], Monocytes (%) (Auto) [Pending], Eosinophils (%) (Auto) [Pending], Basophils (%) (Auto) [Pending], Sodium Level [Pending], Potassium Level [Pending], Chloride Level [Pending], Carbon Dioxide Level [Pending], Blood Urea Nitrogen [Pending], Creatinine [Pending], Estimat Glomerular Filtration Rate [Pending], Glucose Level [Pending], Calcium Level [Pending], Phosphorus Level [Pending], Magnesium Level [Pending], Total Bilirubin [Pending], Aspartate Amino Transf (AST/SGOT) [ Pending], Alanine Aminotransferase (ALT/SGPT) [Pending], Alkaline Phosphatase [ Pending], C-Reactive Protein, Quantitative [Pending], Pro-B-Type Natriuretic Peptide [Pending], Total Protein [Pending], Albumin [Pending], Globulin [Pending ] Height (Feet): 5 Height (Inches): 4.00 Weight (Pounds): 112 General Appearance: no apparent distress Neck: normal alignment Cardiovascular: normal rate Respiratory/Chest: lungs clear Abdomen: normal bowel sounds Pelvis: normal external exam Objective Current Medications Medications (Trade) Dose Ordered Sig/Javier Route PRN Reason Start Time Stop Time Status Last Admin Dose Admin Acetaminophen (Tylenol) 650 mg Q4H PRN GT Mild Pain/Temp > 100.5 09/03/19 07:00 10/03/19 06:59 09/09/19 06:13 Acetylcysteine (Mucomyst) 100 mg Q4HRT N 08/31/19 19:00 11/29/19 18:59 09/14/19 03:10 Albuterol/ Ipratropium (Albuterol/ Ipratropium) 3 ml Q4HRT N 09/11/19 11:00 09/16/19 10:59 09/14/19 03:10 Amlodipine Besylate (Norvasc) 5 mg BID NG 08/23/19 01:45 09/22/19 01:44 09/13/19 17:48 Chlorhexidine Gluconate (Nae-Hex 2%) 1 applic DAILY@1999 TOPIC 08/15/19 20:00 09/14/19 19:59 09/13/19 22:22 Dextrose (Dextrose 50%) 25 ml Q30M PRN IV Hypoglycemia 09/02/19 06:15 12/01/19 06:14 09/04/19 12:11 Dextrose (Dextrose 50%) 50 ml Q30M PRN IV Hypoglycemia 09/02/19 06:15 12/01/19 06:14 Hydralazine HCl (Apresoline) 10 mg Q4H PRN IV For High Blood Pressure 08/18/19 12:44 09/17/19 12:43 09/01/19 20:27 Hydralazine HCl (Apresoline) 25 mg Q6HR NG 08/23/19 06:00 09/22/19 05:59 09/14/19 01:30 Lansoprazole (Prevacid) 30 mg BID GT 08/19/19 09:00 09/18/19 08:59 09/13/19 17:48 Levothyroxine Sodium (Synthroid) 100 mcg DAILY@0630 ORAL 09/14/19 06:30 09/24/19 06:29 Antonio Jacome MD Sep 14, 2019 06:55
--- NOTE | 2019-09-14 07:03 | Hematology/Onc Progress Note ---
Assessment/Plan Assessment/Plan # Thrombocytopenia - potential causes multifactorial, evaluate liver and viral etiologies to begin, in this case due to sepsis with septic shock also with cirrhosis and liver disease --> Hep panel and HIV ordered --> neg --> US abd to evaluate for cirrhosis and hsm ordered --> reviewed --> Peripheral smear ordered to evaluate for blasts /schistocytes --> none noted --> abx and other meds have been reviewed --> ok for ppx if plt >50k w/ either heparin or lovenox --> Transfuse if Plt < 20k and fever, or if Plt < 10k without fever --> okay for permacath change once plt better--> for 08/14 --> plt trend: 43-->83-->237k-->292-->341-->315-->388 -->444-->530-->252k-->344 # Anemia of chronic disease due to underlying chronic medical issues, multifactorial v Gi bleed --> Anemia workup has been ordered, rule out gi bleed --> No evidence of hemolysis is noted, peripheral smear has been reviewed. --> Hgb goal >7. Transfuse prn. --> Epogen has been started --> HOLD OFF IRON ferritin is >1000 --> Medications have been reviewed --> low threshold for gi evaluation in case has occult + --> hgb 9-->6.7-->9.2 -->10.5-->10.6 -->10.7-->10-->10.5-->9.8-->10.4-->9.5--> 3.6-->9.6-->9.7-->10-->10.3-->11 --> blood tx: 08/11, 08/31 --> CT Chest pendig r/o hemothorax --> does show confirmation of a large left hemothorax. Complete atelectasis of the left lower lobe and partial left upper lobe atelectasis demonstrated. Mild rightward shift of the heart and mediastinum. # Sepsis with shock. --> abx as per id, recs noted --> pressors as needed # Healthcare-associated pneumonia. --> recs reviewed --> abx: jung/micafungin-->jung-->off --> 08/24 chest: moderate left pleural effusion # Severe protein-calorie malnutrition. --> nutritional support # End-stage renal disease --> had as renal hd --> with permacath # History of hypertension. --> per cards, now with Bradycardia. # Resp failure s/p vent/trach # HypoThyroid # Ngt feedings # Dvt ppx scd's The timing of this note does not necessarily reflect the time of the patient was seen. Greatly appreciate consultation. Subjective Constitutional: Denies: no symptoms, chills, fever, malaise, weakness, other Cardiovascular: Denies: no symptoms, chest pain, edema, irregular heart rate, lightheadedness, palpitations, syncope, other Respiratory: Denies: no symptoms, cough, shortness of breath, SOB with excertion, SOB at rest, sputum, wheezing, other Genitourinary: Denies: no symptoms, burning, discharge, frequency, flank pain, hematuria, incontinence, pain, urgency, other Neurologic/Psychiatric: Denies: no symptoms, anxiety, depressed, emotional problems, headache, numbness, paresthesia, pre-existing deficit, seizure, tingling, tremors, weakness, other Endocrine: Denies: no symptoms, excessive sweating, flushing, intolerance to cold, intolerance to heat, increased hunger, increased thirst, increased urine, unexplained weight gain, unexplained weight loss, other Hematologic/Lymphatic: Denies: no symptoms, anemia, easy bleeding, easy bruising, adenopathy, other Allergies: Coded Allergies: VANCOMYCIN (Unverified Allergy, Unknown, 08/02/19) Subjective 08/11: no bleeding or chills, labs reviewed, no major bleeding, plt less than 50k 08/12: icu, s/p blood, hgb improved to 9.2, 08/14: icu, pending consent for thora and permacath, labs reviewed 08/15: new permacath placed, no bleeding, for hd, plt much improved, started lovenox sq 08/16: ett to be adjusted, bp on high end, micafungin started, possible bronch 08/17: weaning as per pulm, no events otherwise, labs noted 08/18: no events no bleeding, remains confused on vent, for hd 08/20: icu, failed to wean, labs reviewed, jung 08/21: resting in bed, no overnight events, labs reviewed 08/22: awake, confused, restraints, no overnight events 08/23: no events, no bleeding, on ppi bid 08/24: icu, failed to wean, labs reviewed 08/25: no overnight events, us chest, restraints, afebrile 08/26 difficult in weaning, nad, seen by surg, pulm labs noted 08/27 awake on restraints, thoracentesis for am, labs reviewed 08/29 no bleeding, no night sweats, no major changes, on ppi bid 08/30 no major events, remains on vent, no bleeding, dw pcp 08/31 hgb dropped to 3.6, has been transfused with prbc, in icu, dw Rn, ct chest pend 09/01 no major events, no bleeding, labs noted, hgb remains low, hgb 9.6 09/03 lethargic, left chest tube dry/intact, off abx, vent 09/04 remains on a vent, synthroid, labs reviewed 09/05 awake and alert, no acute events, hgb 9.8, no new orders 09/06 no bleeding or chills, labs noted, no major events overnight, david rn 09/07 no events, no night sweats, no bleeding, no fc, remains agitated in the am 09/08 remains in the icu, trach was done, on vent, abx off, on epo 09/10 transferred to sdu, restraints, vent, labs reviewed 09/11 tube feeds have been ongoing, no f/c, labs reviewed 09/12 no events, no bleeding, no night sweats, hgb 10 09/13 tsh is improved, remains confused, hgb is 11, no bleeding Objective Objective Current Medications Medications (Trade) Dose Ordered Sig/Javier Route PRN Reason Start Time Stop Time Status Last Admin Dose Admin Acetaminophen (Tylenol) 650 mg Q4H PRN GT Mild Pain/Temp > 100.5 09/03/19 07:00 10/03/19 06:59 09/09/19 06:13 Acetylcysteine (Mucomyst) 100 mg Q4HRT HHN 08/31/19 19:00 11/29/19 18:59 09/14/19 03:10 Albuterol/ Ipratropium (Albuterol/ Ipratropium) 3 ml Q4HRT HHN 09/11/19 11:00 09/16/19 10:59 09/14/19 03:10 Amlodipine Besylate (Norvasc) 5 mg BID NG 08/23/19 01:45 09/22/19 01:44 09/13/19 17:48 Chlorhexidine Gluconate (Nae-Hex 2%) 1 applic DAILY@2000 TOPIC 08/15/19 20:00 09/14/19 19:59 09/13/19 22:22 Dextrose (Dextrose 50%) 25 ml Q30M PRN IV Hypoglycemia 09/02/19 06:15 12/01/19 06:14 09/04/19 12:11 Dextrose (Dextrose 50%) 50 ml Q30M PRN IV Hypoglycemia 09/02/19 06:15 12/01/19 06:14 Hydralazine HCl (Apresoline) 10 mg Q4H PRN IV For High Blood Pressure 08/18/19 12:44 09/17/19 12:43 09/01/19 20:27 Hydralazine HCl (Apresoline) 25 mg Q6HR NG 08/23/19 06:00 09/22/19 05:59 09/14/19 01:30 Lansoprazole (Prevacid) 30 mg BID GT 08/19/19 09:00 09/18/19 08:59 09/13/19 17:48 Levothyroxine Sodium (Synthroid) 100 mcg DAILY@0630 ORAL 09/14/19 06:30 09/24/19 06:29 Last 24 Hour Vital Signs Date Time Temp Pulse Resp B/P (MAP) Pulse Ox O2 Delivery O2 Flow Rate FiO2 09/14/19 05:25 66 20 30 09/14/19 04:00 Mechanical Ventilator Mechanical Ventilator Mechanical Ventilator Mechanical Ventilator 09/14/19 04:00 66 09/14/19 04:00 30 09/14/19 03:10 66 20 99 Mechanical Ventilator 30 68 20 30 09/14/19 01:30 75 18 30 09/14/19 01:30 154/83 09/14/19 00:00 97.7 70 24 154/83 (106) 100 09/14/19 00:00 Mechanical Ventilator Mechanical Ventilator Mechanical Ventilator Mechanical Ventilator 09/14/19 00:00 68 09/14/19 00:00 30 09/13/19 23:52 67 18 99 Mechanical Ventilator 30 69 28 30 09/13/19 21:02 69 18 30 09/13/19 20:00 76 09/13/19 20:00 30 09/13/19 20:00 98.1 88 24 151/76 (101) 100 09/13/19 20:00 30 09/13/19 20:00 Mechanical Ventilator Mechanical Ventilator Mechanical Ventilator Mechanical Ventilator 09/13/19 19:58 64 30 99 Mechanical Ventilator 30 64 28 30 09/13/19 17:48 85 148/80 09/13/19 17:48 148/80 09/13/19 17:33 96.5 85 18 148/80 (102) 100 09/13/19 17:20 84 20 30 09/13/19 16:10 30 09/13/19 16:00 Mechanical Ventilator Mechanical Ventilator Mechanical Ventilator Mechanical Ventilator 09/13/19 16:00 97.0 85 18 157/65 (95) 100 09/13/19 15:54 76 09/13/19 14:39 64 18 30 09/13/19 12:56 69 18 30 09/13/19 12:00 Mechanical Ventilator Mechanical Ventilator Mechanical Ventilator Mechanical Ventilator 09/13/19 12:00 30 09/13/19 12:00 96.5 67 18 169/82 (111) 100 09/13/19 11:56 62 09/13/19 11:14 80 20 100 Mechanical Ventilator 30 80 20 30 09/13/19 09:10 72 19 30 09/13/19 08:00 97.5 72 24 165/89 (114) 99 09/13/19 08:00 30 09/13/19 08:00 Mechanical Ventilator Mechanical Ventilator Mechanical Ventilator Mechanical Ventilator 09/13/19 07:56 78 09/13/19 07:12 70 18 30 09/13/19 06:11 146/79 09/13/19 05:30 85 24 30 09/13/19 04:00 97.5 74 20 146/79 (101) 100 09/13/19 04:00 30 09/13/19 04:00 Mechanical Ventilator Mechanical Ventilator Mechanical Ventilator Mechanical Ventilator 09/13/19 04:00 70 09/13/19 03:12 73 19 100 Mechanical Ventilator 30 75 20 30 09/13/19 01:30 86 21 30 09/13/19 00:18 146/77 09/13/19 00:00 97.2 77 18 146/77 (100) 99 09/12/19 23:50 30 09/12/19 23:46 Mechanical Ventilator Mechanical Ventilator Mechanical Ventilator Mechanical Ventilator 09/12/19 23:30 74 18 100 Mechanical Ventilator 30 76 21 30 09/12/19 23:26 93 09/12/19 20:31 80 21 30 09/12/19 20:00 97.3 78 20 147/69 (95) 100 09/12/19 20:00 Mechanical Ventilator Mechanical Ventilator Mechanical Ventilator Mechanical Ventilator 09/12/19 20:00 83 09/12/19 20:00 30 09/12/19 19:30 84 24 100 Mechanical Ventilator 30 88 24 30 09/12/19 17:53 157/79 09/12/19 17:46 82 157/79 09/12/19 16:51 81 21 30 09/12/19 16:00 97.6 82 21 152/77 (102) 100 09/12/19 16:00 30 09/12/19 16:00 Mechanical Ventilator Mechanical Ventilator Mechanical Ventilator Mechanical Ventilator 09/12/19 16:00 86 09/12/19 14:37 83 19 100 Mechanical Ventilator 30 81 21 30 09/12/19 13:45 147/75 09/12/19 12:58 84 20 30 09/12/19 12:00 Mechanical Ventilator Mechanical Ventilator Mechanical Ventilator Mechanical Ventilator 09/12/19 12:00 97.7 82 22 148/75 (99) 98 09/12/19 12:00 157/79 09/12/19 12:00 30 09/12/19 11:37 81 09/12/19 10:51 80 20 100 Mechanical Ventilator 30 77 20 30 09/12/19 10:48 98 09/12/19 09:36 79 18 30 09/12/19 09:31 83 147/91 09/12/19 08:00 82 09/12/19 08:00 30 09/12/19 08:00 97.7 82 22 147/76 (99) 98 09/12/19 08:00 Mechanical Ventilator Mechanical Ventilator Mechanical Ventilator Mechanical Ventilator Intake and Output 09/13/19 09/14/19 19:00 07:00 Intake Total 420 ml 315 ml Output Total 1200 ml Balance -780 ml 315 ml Tube Feeding 420 ml 315 ml Output Urine Total 200 ml Hemodialysis UF 1000 ml # Bowel Movements 4 3 Labs Test 09/12/19 04:00 09/14/19 05:35 White Blood Count 8.6 K/UL (4.8-10.8) 7.8 K/UL (4.8-10.8) Red Blood Count 3.40 M/UL (4.20-5.40) 3.97 M/UL (4.20-5.40) Hemoglobin 10.0 G/DL (12.0-16.0) 11.7 G/DL (12.0-16.0) Hematocrit 30.2 % (37.0-47.0) 35.4 % (37.0-47.0) Mean Corpuscular Volume 89 FL (80-99) 89 FL (80-99) Mean Corpuscular Hemoglobin 29.5 PG (27.0-31.0) 29.6 PG (27.0-31.0) Mean Corpuscular Hemoglobin Concent 33.2 G/DL (32.0-36.0) 33.2 G/DL (32.0-36.0) Red Cell Distribution Width 15.3 % (11.6-14.8) 15.0 % (11.6-14.8) Platelet Count 374 K/UL (150-450) 473 K/UL (150-450) Mean Platelet Volume 4.5 FL (6.5-10.1) 5.0 FL (6.5-10.1) Neutrophils (%) (Auto) 64.2 % (45.0-75.0) 64.7 % (45.0-75.0) Lymphocytes (%) (Auto) 29.2 % (20.0-45.0) 28.7 % (20.0-45.0) Monocytes (%) (Auto) 4.7 % (1.0-10.0) 4.7 % (1.0-10.0) Eosinophils (%) (Auto) 1.1 % (0.0-3.0) 1.0 % (0.0-3.0) Basophils (%) (Auto) 0.8 % (0.0-2.0) 0.9 % (0.0-2.0) Sodium Level 145 MMOL/L (136-145) Potassium Level 3.5 MMOL/L (3.5-5.1) Chloride Level 106 MMOL/L (98-107) Carbon Dioxide Level 25 MMOL/L (21-32) Anion Gap 14 mmol/L (5-15) Blood Urea Nitrogen 57 mg/dL (7-18) Creatinine 3.5 MG/DL (0.55-1.30) Estimat Glomerular Filtration Rate 12.6 mL/min (>60) Glucose Level 126 MG/DL (74-106) Calcium Level 9.2 MG/DL (8.5-10.1) Phosphorus Level 3.6 MG/DL (2.5-4.9) Magnesium Level 2.1 MG/DL (1.8-2.4) Total Bilirubin 0.7 MG/DL (0.2-1.0) Aspartate Amino Transf (AST/SGOT) 43 U/L (15-37) Alanine Aminotransferase (ALT/SGPT) 21 U/L (12-78) Alkaline Phosphatase 139 U/L (46-116) Total Protein 7.0 G/DL (6.4-8.2) Albumin 2.3 G/DL (3.4-5.0) Globulin 4.7 g/dL Albumin/Globulin Ratio 0.5 (1.0-2.7) Height (Feet): 5 Height (Inches): 4.00 Weight (Pounds): 112 Objective gen: nad pulm: on trach+ / vent, decreased breath sounds left, chest tube+ cv: rrr, no gmr abd: sfot, nt, nd ++ gt ext: no cce Gio Rob MD Sep 14, 2019 07:03
[2019-09-14 07:47] LABS: ALANINE AMINOTRANSFERASE 42 U/L (12-78); ALBUMIN 2.7 G/DL (3.4-5.0); ALBUMIN/GLOBULIN RATIO 0.6 (1.0-2.7); ALKALINE PHOSPHATASE 194 U/L (46-116); ANION GAP 17 mmol/L (5-15); ASPARTATE AMINO TRANSFERASE 109 U/L (15-37); BILIRUBIN,TOTAL 0.6 MG/DL (0.2-1.0); BLOOD UREA NITROGEN 52 mg/dL (7-18); CALCIUM 9.9 MG/DL (8.5-10.1); CARBON DIOXIDE 24 MMOL/L (21-32); CHLORIDE 105 MMOL/L (98-107); CREATININE 2.8 MG/DL (0.55-1.30); PHOSPHORUS 3.4 MG/DL (2.5-4.9); POTASSIUM 4.6 MMOL/L (3.5-5.1); SODIUM 146 MMOL/L (136-145)
[2019-09-14 08:00] VITALS: BP 152/87
--- NOTE | 2019-09-14 08:27 | General Progress Note ---
Assessment/Plan Problem List: (1) Failure to thrive (0-17) ICD Codes: R62.51 - Failure to thrive (0-17) SNOMED: 453598444 (2) Hypertensive kidney disease ICD Codes: I12.9 - Hypertensive chronic kidney disease with stage 1 through stage 4 chronic kidney disease, or unspecified chronic kidney disease SNOMED: 06552096 (3) Pneumonia ICD Codes: J18.9 - Pneumonia, unspecified organism SNOMED: 161229884 Qualifiers: Qualified Codes: J18.9 - Pneumonia, unspecified organism (4) ESRD (end stage renal disease) ICD Codes: N18.6 - End stage renal disease SNOMED: 19670355 (5) Septic arthritis ICD Codes: M00.9 - Pyogenic arthritis, unspecified SNOMED: 790682994 (6) Thrombocytopenia ICD Codes: D69.6 - Thrombocytopenia, unspecified SNOMED: 919980093 (7) Hypotension ICD Codes: I95.9 - Hypotension, unspecified SNOMED: 29576026 Qualifiers: Qualified Codes: I95.3 - Hypotension of hemodialysis (8) Malnutrition ICD Codes: E46 - Unspecified protein-calorie malnutrition SNOMED: 91052013 Status: stable, not improved, unchanged, deteriorating Assessment/Plan: Continue ventilatory support. Respiratory treatments and suctioning. wean as able. Monitor chest x-ray. Hemodialysis per renal. Monitor labs. monitor off antibiotics. Surgery follow-up regarding leaking from old chest tube site. Continue tube feeds with monitoring residuals. Discharge planning.turn every 2. Subjective ROS Limited/Unobtainable: No Constitutional: Reports: malaise, weakness HEENT: Reports: no symptoms Cardiovascular: Reports: no symptoms Respiratory: Reports: cough, shortness of breath Gastrointestinal/Abdominal: Reports: no symptoms Genitourinary: Reports: no symptoms Neurologic/Psychiatric: Reports: pre-existing deficit Allergies: Coded Allergies: VANCOMYCIN (Unverified Allergy, Unknown, 08/02/19) All Systems: reviewed and negative except above Subjective no events. transferred to [facility]. currently on the vent. awake and alert. no overnight issues. no bleeding. tolerating feeds. no distress. Objective Last 24 Hour Vital Signs Date Time Temp Pulse Resp B/P (MAP) Pulse Ox O2 Delivery O2 Flow Rate FiO2 09/14/19 08:08 76 21 100 Mechanical Ventilator 30 79 20 30 09/14/19 07:13 155/86 09/14/19 05:25 66 20 30 09/14/19 04:00 Mechanical Ventilator Mechanical Ventilator Mechanical Ventilator Mechanical Ventilator 09/14/19 04:00 66 09/14/19 04:00 97.7 70 18 155/86 (109) 100 09/14/19 04:00 30 09/14/19 03:10 66 20 99 Mechanical Ventilator 30 68 20 30 09/14/19 01:30 75 18 30 09/14/19 01:30 154/83 09/14/19 00:00 97.7 70 24 154/83 (106) 100 09/14/19 00:00 Mechanical Ventilator Mechanical Ventilator Mechanical Ventilator Mechanical Ventilator 09/14/19 00:00 68 09/14/19 00:00 30 09/13/19 23:52 67 18 99 Mechanical Ventilator 30 69 28 30 09/13/19 21:02 69 18 30 09/13/19 20:00 76 09/13/19 20:00 30 09/13/19 20:00 98.1 88 24 151/76 (101) 100 09/13/19 20:00 30 09/13/19 20:00 Mechanical Ventilator Mechanical Ventilator Mechanical Ventilator Mechanical Ventilator 09/13/19 19:58 64 30 99 Mechanical Ventilator 30 64 28 30 09/13/19 17:48 85 148/80 09/13/19 17:48 148/80 09/13/19 17:33 96.5 85 18 148/80 (102) 100 09/13/19 17:20 84 20 30 09/13/19 16:10 30 09/13/19 16:00 Mechanical Ventilator Mechanical Ventilator Mechanical Ventilator Mechanical Ventilator 09/13/19 16:00 97.0 85 18 157/65 (95) 100 09/13/19 15:54 76 09/13/19 14:39 64 18 30 09/13/19 12:56 69 18 30 09/13/19 12:00 Mechanical Ventilator Mechanical Ventilator Mechanical Ventilator Mechanical Ventilator 09/13/19 12:00 30 09/13/19 12:00 96.5 67 18 169/82 (111) 100 09/13/19 11:56 62 09/13/19 11:14 80 20 100 Mechanical Ventilator 30 80 20 30 09/13/19 09:10 72 19 30 Intake and Output 09/13/19 09/14/19 19:00 07:00 Intake Total 420 ml 315 ml Output Total 1200 ml Balance -780 ml 315 ml Tube Feeding 420 ml 315 ml Output Urine Total 200 ml Hemodialysis UF 1000 ml # Bowel Movements 4 3 Laboratory Tests 09/14/19 05:35: White Blood Count 7.8, Red Blood Count 3.97L, Hemoglobin 11.7L, Hematocrit 35.4L , Mean Corpuscular Volume 89, Mean Corpuscular Hemoglobin 29.6, Mean Corpuscular Hemoglobin Concent 33.2, Red Cell Distribution Width 15.0H, Platelet Count 473H, Mean Platelet Volume 5.0L, Neutrophils (%) (Auto) 64.7, Lymphocytes (%) (Auto) 28.7, Monocytes (%) (Auto) 4.7, Eosinophils (%) (Auto) 1.0, Basophils (%) (Auto) 0.9, Sodium Level 146H, Potassium Level 4.6, Chloride Level 105, Carbon Dioxide Level 24, Anion Gap 17H, Blood Urea Nitrogen 52H, Creatinine 2.8H, Estimat Glomerular Filtration Rate 16.3, Glucose Level 112H, Calcium Level 9.9, Phosphorus Level 3.4, Magnesium Level 2.4, Total Bilirubin 0.6, Aspartate Amino Transf (AST/SGOT) 109H, Alanine Aminotransferase (ALT/SGPT ) 42, Alkaline Phosphatase 194H, C-Reactive Protein, Quantitative 13.1H, Pro-B- Type Natriuretic Peptide > 06741K, Total Protein 7.6, Albumin 2.7L, Globulin 4.9 , Albumin/Globulin Ratio 0.6L Height (Feet): 5 Height (Inches): 4.00 Weight (Pounds): 112 Objective General Appearance: WD/WN, awake. looks around. no distress. thin and frail Neck: supple +trach Cardiovascular: normal rate Respiratory/Chest: rhonchi - bilaterally Abdomen: normal bowel sounds, non tender, soft, no organomegaly Edema: no edema noted Arm (L), no edema noted Arm (R), no edema noted Leg (L), no edema noted Leg (R), no edema noted Pedal (L), no edema noted Pedal (R), no edema noted Generalized Neurologic: disoriented, aphasia Skin: +excoriations Nate Beltran MD Sep 14, 2019 08:27
--- NOTE | 2019-09-14 09:33 | Critical Care Progress Note ---
Assessment/Plan Assessment/Plan respiratory failure hemoptysis resolved hypoxemia chronic renal failure toxic met encephalopathy severe protein calorie malnutrition cachexia left lung whiteout/collapse, improved with intubation s/p intubation anemia ? blood loss pulmonary edema with elevated BNP + pleural effusion ? hemothorax s/p CT placement and removal s/p trach hypernatremia PLAN trach care as is monitor effusion for change and advise care noted and reviewed monitor for fluid retention reviewed care and continue to monitor not able to wean and will need subacute care prognosis poor overall for change keep negative and monitor osmotic pressures nontoxic close follow up discussed elevated head and monitor ROM watch fluid status and keep negative nutrition and monitor residuals isolation reviewed off load as able and monitor skin exam ROM as able and monitor contractures impression, plan, and exam edited and reviewed in detail care discussed with hardboard panel printer - Subjective ROS Limited/Unobtainable: Yes Condition: unchanged EKG Rhythm: Sinus Rhythm Residuals: minimal Tube Feeding Tolerated: yes I&O: Intake and Output 09/13/19 09/14/19 18:59 06:59 Intake Total 420 ml 350 ml Output Total 1200 ml Balance -780 ml 350 ml Tube Feeding 420 ml 350 ml Output Urine Total 200 ml Hemodialysis UF 1000 ml # Bowel Movements 4 3 Critical Care - Objective ET-Tube: 7.0 ET Position: 19 Last 24 Hour Vital Signs Date Time Temp Pulse Resp B/P (MAP) Pulse Ox O2 Delivery O2 Flow Rate FiO2 09/14/19 08:51 72 152/87 09/14/19 08:08 76 21 100 Mechanical Ventilator 30 79 20 30 09/14/19 07:13 155/86 09/14/19 05:25 66 20 30 09/14/19 04:00 Mechanical Ventilator Mechanical Ventilator Mechanical Ventilator Mechanical Ventilator 09/14/19 04:00 66 09/14/19 04:00 97.7 70 18 155/86 (109) 100 09/14/19 04:00 30 09/14/19 03:10 66 20 99 Mechanical Ventilator 30 68 20 30 09/14/19 01:30 75 18 30 09/14/19 01:30 154/83 09/14/19 00:00 97.7 70 24 154/83 (106) 100 09/14/19 00:00 Mechanical Ventilator Mechanical Ventilator Mechanical Ventilator Mechanical Ventilator 09/14/19 00:00 68 09/14/19 00:00 30 09/13/19 23:52 67 18 99 Mechanical Ventilator 30 69 28 30 09/13/19 21:02 69 18 30 09/13/19 20:00 76 09/13/19 20:00 30 09/13/19 20:00 98.1 88 24 151/76 (101) 100 09/13/19 20:00 30 09/13/19 20:00 Mechanical Ventilator Mechanical Ventilator Mechanical Ventilator Mechanical Ventilator 09/13/19 19:58 64 30 99 Mechanical Ventilator 30 64 28 30 09/13/19 17:48 85 148/80 09/13/19 17:48 148/80 09/13/19 17:33 96.5 85 18 148/80 (102) 100 09/13/19 17:20 84 20 30 09/13/19 16:10 30 09/13/19 16:00 Mechanical Ventilator Mechanical Ventilator Mechanical Ventilator Mechanical Ventilator 09/13/19 16:00 97.0 85 18 157/65 (95) 100 09/13/19 15:54 76 09/13/19 14:39 64 18 30 09/13/19 12:56 69 18 30 09/13/19 12:00 Mechanical Ventilator Mechanical Ventilator Mechanical Ventilator Mechanical Ventilator 09/13/19 12:00 30 09/13/19 12:00 96.5 67 18 169/82 (111) 100 09/13/19 11:56 62 09/13/19 11:14 80 20 100 Mechanical Ventilator 30 80 20 30 Labs: Labs Test 09/12/19 04:00 09/14/19 05:35 White Blood Count 8.6 K/UL (4.8-10.8) 7.8 K/UL (4.8-10.8) Red Blood Count 3.40 M/UL (4.20-5.40) 3.97 M/UL (4.20-5.40) Hemoglobin 10.0 G/DL (12.0-16.0) 11.7 G/DL (12.0-16.0) Hematocrit 30.2 % (37.0-47.0) 35.4 % (37.0-47.0) Mean Corpuscular Volume 89 FL (80-99) 89 FL (80-99) Mean Corpuscular Hemoglobin 29.5 PG (27.0-31.0) 29.6 PG (27.0-31.0) Mean Corpuscular Hemoglobin Concent 33.2 G/DL (32.0-36.0) 33.2 G/DL (32.0-36.0) Red Cell Distribution Width 15.3 % (11.6-14.8) 15.0 % (11.6-14.8) Platelet Count 374 K/UL (150-450) 473 K/UL (150-450) Mean Platelet Volume 4.5 FL (6.5-10.1) 5.0 FL (6.5-10.1) Neutrophils (%) (Auto) 64.2 % (45.0-75.0) 64.7 % (45.0-75.0) Lymphocytes (%) (Auto) 29.2 % (20.0-45.0) 28.7 % (20.0-45.0) Monocytes (%) (Auto) 4.7 % (1.0-10.0) 4.7 % (1.0-10.0) Eosinophils (%) (Auto) 1.1 % (0.0-3.0) 1.0 % (0.0-3.0) Basophils (%) (Auto) 0.8 % (0.0-2.0) 0.9 % (0.0-2.0) Sodium Level 145 MMOL/L (136-145) 146 MMOL/L (136-145) Potassium Level 3.5 MMOL/L (3.5-5.1) 4.6 MMOL/L (3.5-5.1) Chloride Level 106 MMOL/L (98-107) 105 MMOL/L (98-107) Carbon Dioxide Level 25 MMOL/L (21-32) 24 MMOL/L (21-32) Anion Gap 14 mmol/L (5-15) 17 mmol/L (5-15) Blood Urea Nitrogen 57 mg/dL (7-18) 52 mg/dL (7-18) Creatinine 3.5 MG/DL (0.55-1.30) 2.8 MG/DL (0.55-1.30) Estimat Glomerular Filtration Rate 12.6 mL/min (>60) 16.3 mL/min (>60) Glucose Level 126 MG/DL (74-106) 112 MG/DL (74-106) Calcium Level 9.2 MG/DL (8.5-10.1) 9.9 MG/DL (8.5-10.1) Phosphorus Level 3.6 MG/DL (2.5-4.9) 3.4 MG/DL (2.5-4.9) Magnesium Level 2.1 MG/DL (1.8-2.4) 2.4 MG/DL (1.8-2.4) Total Bilirubin 0.7 MG/DL (0.2-1.0) 0.6 MG/DL (0.2-1.0) Aspartate Amino Transf (AST/SGOT) 43 U/L (15-37) 109 U/L (15-37) Alanine Aminotransferase (ALT/SGPT) 21 U/L (12-78) 42 U/L (12-78) Alkaline Phosphatase 139 U/L (46-116) 194 U/L (46-116) Total Protein 7.0 G/DL (6.4-8.2) 7.6 G/DL (6.4-8.2) Albumin 2.3 G/DL (3.4-5.0) 2.7 G/DL (3.4-5.0) Globulin 4.7 g/dL 4.9 g/dL Albumin/Globulin Ratio 0.5 (1.0-2.7) 0.6 (1.0-2.7) C-Reactive Protein, Quantitative 13.1 mg/dL (0.00-0.90) Pro-B-Type Natriuretic Peptide > 44193 pg/mL (0-125) Objective: WDWN NAD trach in place reduced breath sounds scattered rhonchi; [id number] without MRG NABS nontender no HSM no CCE contractures feeding tube in place no distention reduced LOC and weak nonfocal cachectic reviewed and edited Accucheck: 125 Malcolm Cruz MD Sep 14, 2019 09:33
--- NOTE | 2019-09-14 09:49 | Diagnostic Imaging Report ---
Indication: Cough Technique: One view of the chest Comparison: 09/08/2019 Findings: There is slightly increased pleural fluid on the left. Hazy right-sided opacity is probably due to the pleural fluid but could also indicate some developing parenchymal infiltrate. Round opacity in the right lower lung probably represents a nipple shadow. The right lung and pleural space are otherwise clear, previously demonstrated atelectatic changes have resolved. Tracheostomy remains Impression: Increasing left pleural effusion, over 6 days
--- NOTE | 2019-09-14 10:48 | Nephrology Progress Note ---
Assessment/Plan Problem List: (1) ESRD (end stage renal disease) on dialysis (2) Malnutrition (3) Anemia in CKD (chronic kidney disease) (4) Hypotension (5) Thrombocytopenia (6) Sepsis Assessment: klebsiella in blood Assessment -Early sepsis with shock. -Healthcare-associated pneumonia. -Severe protein-calorie malnutrition. -Thrombocytopenia. - End-stage renal disease. - History of hypertension. - Bradycardia. - HypoThyroid Plan Today's labs reviewed Tracheostomy September 07 Last dialysis September 12 Chest tube on the left side was put in on September 01 was discontinued September 07 Patient transfused 3 units of packed RBCs for low hemoglobin Remains full code Blood pressure fluctuating, will start hydralazine via NG tube for blood pressure Magnesium and potassium supplement intravenously as needed Patient underwent PEG placement August 16 patient remains intubated on ventilator Discussed with RN Aim to wean from ventilator or consider tracheostomy Permacath was removed on August 12 Dialysis 08/11 Transfusion as needed Patient had hematemesis meds IV as possible Surveillance blood cultures tomorrow Plan to put the permacath back in on Thursday if cultures are negative keep BP and BS in check Inflammatory markers per orders Subjective ROS Limited/Unobtainable: Yes Objective Objective Last 24 Hour Vital Signs Date Time Temp Pulse Resp B/P (MAP) Pulse Ox O2 Delivery O2 Flow Rate FiO2 09/14/19 08:51 72 152/87 09/14/19 08:08 76 21 100 Mechanical Ventilator 30 79 20 30 09/14/19 08:00 97.7 72 18 152/87 (108) 100 09/14/19 08:00 Mechanical Ventilator Mechanical Ventilator Mechanical Ventilator Mechanical Ventilator 09/14/19 08:00 30 09/14/19 07:26 73 09/14/19 07:13 155/86 09/14/19 05:25 66 20 30 09/14/19 04:00 Mechanical Ventilator Mechanical Ventilator Mechanical Ventilator Mechanical Ventilator 09/14/19 04:00 66 09/14/19 04:00 97.7 70 18 155/86 (109) 100 09/14/19 04:00 30 09/14/19 03:10 66 20 99 Mechanical Ventilator 30 68 20 30 09/14/19 01:30 75 18 30 09/14/19 01:30 154/83 09/14/19 00:00 97.7 70 24 154/83 (106) 100 09/14/19 00:00 Mechanical Ventilator Mechanical Ventilator Mechanical Ventilator Mechanical Ventilator 09/14/19 00:00 68 09/14/19 00:00 30 09/13/19 23:52 67 18 99 Mechanical Ventilator 30 69 28 30 09/13/19 21:02 69 18 30 09/13/19 20:00 76 09/13/19 20:00 30 09/13/19 20:00 98.1 88 24 151/76 (101) 100 09/13/19 20:00 30 09/13/19 20:00 Mechanical Ventilator Mechanical Ventilator Mechanical Ventilator Mechanical Ventilator 09/13/19 19:58 64 30 99 Mechanical Ventilator 30 64 28 30 09/13/19 17:48 85 148/80 09/13/19 17:48 148/80 09/13/19 17:33 96.5 85 18 148/80 (102) 100 09/13/19 17:20 84 20 30 09/13/19 16:10 30 09/13/19 16:00 Mechanical Ventilator Mechanical Ventilator Mechanical Ventilator Mechanical Ventilator 09/13/19 16:00 97.0 85 18 157/65 (95) 100 09/13/19 15:54 76 09/13/19 14:39 64 18 30 09/13/19 12:56 69 18 30 09/13/19 12:00 Mechanical Ventilator Mechanical Ventilator Mechanical Ventilator Mechanical Ventilator 09/13/19 12:00 30 09/13/19 12:00 96.5 67 18 169/82 (111) 100 09/13/19 11:56 62 09/13/19 11:14 80 20 100 Mechanical Ventilator 30 80 20 30 Intake and Output 09/13/19 09/14/19 19:00 07:00 Intake Total 420 ml 315 ml Output Total 1200 ml Balance -780 ml 315 ml Tube Feeding 420 ml 315 ml Output Urine Total 200 ml Hemodialysis UF 1000 ml # Bowel Movements 4 3 Laboratory Tests 09/14/19 05:35: White Blood Count 7.8, Red Blood Count 3.97L, Hemoglobin 11.7L, Hematocrit 35.4L , Mean Corpuscular Volume 89, Mean Corpuscular Hemoglobin 29.6, Mean Corpuscular Hemoglobin Concent 33.2, Red Cell Distribution Width 15.0H, Platelet Count 473H, Mean Platelet Volume 5.0L, Neutrophils (%) (Auto) 64.7, Lymphocytes (%) (Auto) 28.7, Monocytes (%) (Auto) 4.7, Eosinophils (%) (Auto) 1.0, Basophils (%) (Auto) 0.9, Sodium Level 146H, Potassium Level 4.6, Chloride Level 105, Carbon Dioxide Level 24, Anion Gap 17H, Blood Urea Nitrogen 52H, Creatinine 2.8H, Estimat Glomerular Filtration Rate 16.3, Glucose Level 112H, Calcium Level 9.9, Phosphorus Level 3.4, Magnesium Level 2.4, Total Bilirubin 0.6, Aspartate Amino Transf (AST/SGOT) 109H, Alanine Aminotransferase (ALT/SGPT ) 42, Alkaline Phosphatase 194H, C-Reactive Protein, Quantitative 13.1H, Pro-B- Type Natriuretic Peptide > 48253F, Total Protein 7.6, Albumin 2.7L, Globulin 4.9 , Albumin/Globulin Ratio 0.6L Height (Feet): 5 Height (Inches): 4.00 Weight (Pounds): 112 General Appearance: no apparent distress EENT: other - Trached and vent Cardiovascular: normal rate Respiratory/Chest: decreased breath sounds Abdomen: soft, other Objective no change William Blackwood MD Sep 14, 2019 10:48
--- NOTE | 2019-09-14 10:51 | Infectious Diseases Prog Note ---
Assessment/Plan Assessment/Plan antibiotics : none A 1. jarad albicans fungemia s/p rx 2. right shoulder septic arthritis with staph aureus s/p rx 3. pleural effusion 4. thrombocytopenia resolved 7. diabetes mellitus 8. hypertension 9. respiratory failure P 1. observe off antibiotics Subjective ROS Limited/Unobtainable: Yes Allergies: Coded Allergies: VANCOMYCIN (Unverified Allergy, Unknown, 08/02/19) Objective Vital Signs Last 24 Hour Vital Signs Date Time Temp Pulse Resp B/P (MAP) Pulse Ox O2 Delivery O2 Flow Rate FiO2 09/14/19 08:51 72 152/87 09/14/19 08:08 76 21 100 Mechanical Ventilator 30 79 20 30 09/14/19 08:00 97.7 72 18 152/87 (108) 100 09/14/19 08:00 Mechanical Ventilator Mechanical Ventilator Mechanical Ventilator Mechanical Ventilator 09/14/19 08:00 30 09/14/19 07:26 73 09/14/19 07:13 155/86 09/14/19 05:25 66 20 30 09/14/19 04:00 Mechanical Ventilator Mechanical Ventilator Mechanical Ventilator Mechanical Ventilator 09/14/19 04:00 66 09/14/19 04:00 97.7 70 18 155/86 (109) 100 09/14/19 04:00 30 09/14/19 03:10 66 20 99 Mechanical Ventilator 30 68 20 30 09/14/19 01:30 75 18 30 09/14/19 01:30 154/83 09/14/19 00:00 97.7 70 24 154/83 (106) 100 09/14/19 00:00 Mechanical Ventilator Mechanical Ventilator Mechanical Ventilator Mechanical Ventilator 09/14/19 00:00 68 09/14/19 00:00 30 09/13/19 23:52 67 18 99 Mechanical Ventilator 30 69 28 30 09/13/19 21:02 69 18 30 09/13/19 20:00 76 09/13/19 20:00 30 09/13/19 20:00 98.1 88 24 151/76 (101) 100 09/13/19 20:00 30 09/13/19 20:00 Mechanical Ventilator Mechanical Ventilator Mechanical Ventilator Mechanical Ventilator 09/13/19 19:58 64 30 99 Mechanical Ventilator 30 64 28 30 09/13/19 17:48 85 148/80 09/13/19 17:48 148/80 09/13/19 17:33 96.5 85 18 148/80 (102) 100 09/13/19 17:20 84 20 30 09/13/19 16:10 30 09/13/19 16:00 Mechanical Ventilator Mechanical Ventilator Mechanical Ventilator Mechanical Ventilator 09/13/19 16:00 97.0 85 18 157/65 (95) 100 09/13/19 15:54 76 09/13/19 14:39 64 18 30 09/13/19 12:56 69 18 30 09/13/19 12:00 Mechanical Ventilator Mechanical Ventilator Mechanical Ventilator Mechanical Ventilator 09/13/19 12:00 30 09/13/19 12:00 96.5 67 18 169/82 (111) 100 09/13/19 11:56 62 09/13/19 11:14 80 20 100 Mechanical Ventilator 30 80 20 30 Height (Feet): 5 Height (Inches): 4.00 Weight (Pounds): 112 HEENT: status post trach Respiratory/Chest: lungs clear Cardiovascular: normal rate, regular rhythm, no gallop/murmur Abdomen: soft, non tender, other - GT Extremities: no edema, other - right groin catheter Laboratory Tests Test 09/14/19 05:35 White Blood Count 7.8 K/UL (4.8-10.8) Red Blood Count 3.97 M/UL (4.20-5.40) L Hemoglobin 11.7 G/DL (12.0-16.0) L Hematocrit 35.4 % (37.0-47.0) L Mean Corpuscular Volume 89 FL (80-99) Mean Corpuscular Hemoglobin 29.6 PG (27.0-31.0) Mean Corpuscular Hemoglobin Concent 33.2 G/DL (32.0-36.0) Red Cell Distribution Width 15.0 % (11.6-14.8) H Platelet Count 473 K/UL (150-450) H Mean Platelet Volume 5.0 FL (6.5-10.1) L Neutrophils (%) (Auto) 64.7 % (45.0-75.0) Lymphocytes (%) (Auto) 28.7 % (20.0-45.0) Monocytes (%) (Auto) 4.7 % (1.0-10.0) Eosinophils (%) (Auto) 1.0 % (0.0-3.0) Basophils (%) (Auto) 0.9 % (0.0-2.0) Sodium Level 146 MMOL/L (136-145) H Potassium Level 4.6 MMOL/L (3.5-5.1) Chloride Level 105 MMOL/L (98-107) Carbon Dioxide Level 24 MMOL/L (21-32) Anion Gap 17 mmol/L (5-15) H Blood Urea Nitrogen 52 mg/dL (7-18) H Creatinine 2.8 MG/DL (0.55-1.30) H Estimat Glomerular Filtration Rate 16.3 mL/min (>60) Glucose Level 112 MG/DL (74-106) H Calcium Level 9.9 MG/DL (8.5-10.1) Phosphorus Level 3.4 MG/DL (2.5-4.9) Magnesium Level 2.4 MG/DL (1.8-2.4) Total Bilirubin 0.6 MG/DL (0.2-1.0) Aspartate Amino Transf (AST/SGOT) 109 U/L (15-37) H Alanine Aminotransferase (ALT/SGPT) 42 U/L (12-78) Alkaline Phosphatase 194 U/L (46-116) H C-Reactive Protein, Quantitative 13.1 mg/dL (0.00-0.90) H Pro-B-Type Natriuretic Peptide > 73508 pg/mL (0-125) H Total Protein 7.6 G/DL (6.4-8.2) Albumin 2.7 G/DL (3.4-5.0) L Globulin 4.9 g/dL Albumin/Globulin Ratio 0.6 (1.0-2.7) L Current Medications Medications (Trade) Dose Ordered Sig/Javier Route PRN Reason Start Time Stop Time Status Last Admin Dose Admin Acetaminophen (Tylenol) 650 mg Q4H PRN GT Mild Pain/Temp > 100.5 09/03/19 07:00 10/03/19 06:59 09/09/19 06:13 Acetylcysteine (Mucomyst) 100 mg Q4HRT N 08/31/19 19:00 11/29/19 18:59 09/14/19 08:09 Albuterol/ Ipratropium (Albuterol/ Ipratropium) 3 ml Q4HRT N 09/11/19 11:00 09/16/19 10:59 09/14/19 08:08 Amlodipine Besylate (Norvasc) 5 mg BID NG 08/23/19 01:45 09/22/19 01:44 09/14/19 08:51 Chlorhexidine Gluconate (Nae-Hex 2%) 1 applic DAILY@2000 TOPIC 08/15/19 20:00 09/14/19 19:59 09/13/19 22:22 Dextrose (Dextrose 50%) 25 ml Q30M PRN IV Hypoglycemia 09/02/19 06:15 12/01/19 06:14 09/04/19 12:11 Dextrose (Dextrose 50%) 50 ml Q30M PRN IV Hypoglycemia 09/02/19 06:15 12/01/19 06:14 Hydralazine HCl (Apresoline) 10 mg Q4H PRN IV For High Blood Pressure 08/18/19 12:44 09/17/19 12:43 09/01/19 20:27 Hydralazine HCl (Apresoline) 25 mg Q6HR NG 08/23/19 06:00 09/22/19 05:59 09/14/19 07:13 Lansoprazole (Prevacid) 30 mg BID GT 08/19/19 09:00 09/18/19 08:59 09/14/19 08:51 Levothyroxine Sodium (Synthroid) 100 mcg DAILY@0630 ORAL 09/14/19 06:30 09/24/19 06:29 09/14/19 07:13 Melissa Solares MD Sep 14, 2019 10:51
--- NOTE | 2019-09-14 10:52 | Surgery Progress Note ---
Surgery Progress Note Subjective Procedure Performed 1. tracheostomy 2 removal of left tube thoracostomy Additional Comments ill appearing cxr noted pleural effusion otherwise stable Objective Last 24 Hour Vital Signs Date Time Temp Pulse Resp B/P (MAP) Pulse Ox O2 Delivery O2 Flow Rate FiO2 09/14/19 08:51 72 152/87 09/14/19 08:08 76 21 100 Mechanical Ventilator 30 79 20 30 09/14/19 08:00 97.7 72 18 152/87 (108) 100 09/14/19 08:00 Mechanical Ventilator Mechanical Ventilator Mechanical Ventilator Mechanical Ventilator 09/14/19 08:00 30 09/14/19 07:26 73 09/14/19 07:13 155/86 09/14/19 05:25 66 20 30 09/14/19 04:00 Mechanical Ventilator Mechanical Ventilator Mechanical Ventilator Mechanical Ventilator 09/14/19 04:00 66 09/14/19 04:00 97.7 70 18 155/86 (109) 100 09/14/19 04:00 30 09/14/19 03:10 66 20 99 Mechanical Ventilator 30 68 20 30 09/14/19 01:30 75 18 30 09/14/19 01:30 154/83 09/14/19 00:00 97.7 70 24 154/83 (106) 100 09/14/19 00:00 Mechanical Ventilator Mechanical Ventilator Mechanical Ventilator Mechanical Ventilator 09/14/19 00:00 68 09/14/19 00:00 30 09/13/19 23:52 67 18 99 Mechanical Ventilator 30 69 28 30 09/13/19 21:02 69 18 30 09/13/19 20:00 76 09/13/19 20:00 30 09/13/19 20:00 98.1 88 24 151/76 (101) 100 09/13/19 20:00 30 09/13/19 20:00 Mechanical Ventilator Mechanical Ventilator Mechanical Ventilator Mechanical Ventilator 09/13/19 19:58 64 30 99 Mechanical Ventilator 30 64 28 30 09/13/19 17:48 85 148/80 09/13/19 17:48 148/80 09/13/19 17:33 96.5 85 18 148/80 (102) 100 09/13/19 17:20 84 20 30 09/13/19 16:10 30 09/13/19 16:00 Mechanical Ventilator Mechanical Ventilator Mechanical Ventilator Mechanical Ventilator 09/13/19 16:00 97.0 85 18 157/65 (95) 100 09/13/19 15:54 76 09/13/19 14:39 64 18 30 09/13/19 12:56 69 18 30 09/13/19 12:00 Mechanical Ventilator Mechanical Ventilator Mechanical Ventilator Mechanical Ventilator 09/13/19 12:00 30 09/13/19 12:00 96.5 67 18 169/82 (111) 100 09/13/19 11:56 62 09/13/19 11:14 80 20 100 Mechanical Ventilator 30 80 20 30 I&O Intake and Output 09/13/19 09/14/19 19:00 07:00 Intake Total 420 ml 315 ml Output Total 1200 ml Balance -780 ml 315 ml Tube Feeding 420 ml 315 ml Output Urine Total 200 ml Hemodialysis UF 1000 ml # Bowel Movements 4 3 Dressing: saturated Wound: other Drains: other Cardiovascular: RSR Respiratory: decreased breath sounds Abdomen: soft, non-tender, present bowel sounds Extremities: no edema, no tenderness, no cyanosis Laboratory Tests Test 09/14/19 05:35 White Blood Count 7.8 K/UL (4.8-10.8) Red Blood Count 3.97 M/UL (4.20-5.40) L Hemoglobin 11.7 G/DL (12.0-16.0) L Hematocrit 35.4 % (37.0-47.0) L Mean Corpuscular Volume 89 FL (80-99) Mean Corpuscular Hemoglobin 29.6 PG (27.0-31.0) Mean Corpuscular Hemoglobin Concent 33.2 G/DL (32.0-36.0) Red Cell Distribution Width 15.0 % (11.6-14.8) H Platelet Count 473 K/UL (150-450) H Mean Platelet Volume 5.0 FL (6.5-10.1) L Neutrophils (%) (Auto) 64.7 % (45.0-75.0) Lymphocytes (%) (Auto) 28.7 % (20.0-45.0) Monocytes (%) (Auto) 4.7 % (1.0-10.0) Eosinophils (%) (Auto) 1.0 % (0.0-3.0) Basophils (%) (Auto) 0.9 % (0.0-2.0) Sodium Level 146 MMOL/L (136-145) H Potassium Level 4.6 MMOL/L (3.5-5.1) Chloride Level 105 MMOL/L (98-107) Carbon Dioxide Level 24 MMOL/L (21-32) Anion Gap 17 mmol/L (5-15) H Blood Urea Nitrogen 52 mg/dL (7-18) H Creatinine 2.8 MG/DL (0.55-1.30) H Estimat Glomerular Filtration Rate 16.3 mL/min (>60) Glucose Level 112 MG/DL (74-106) H Calcium Level 9.9 MG/DL (8.5-10.1) Phosphorus Level 3.4 MG/DL (2.5-4.9) Magnesium Level 2.4 MG/DL (1.8-2.4) Total Bilirubin 0.6 MG/DL (0.2-1.0) Aspartate Amino Transf (AST/SGOT) 109 U/L (15-37) H Alanine Aminotransferase (ALT/SGPT) 42 U/L (12-78) Alkaline Phosphatase 194 U/L (46-116) H C-Reactive Protein, Quantitative 13.1 mg/dL (0.00-0.90) H Pro-B-Type Natriuretic Peptide > 04406 pg/mL (0-125) H Total Protein 7.6 G/DL (6.4-8.2) Albumin 2.7 G/DL (3.4-5.0) L Globulin 4.9 g/dL Albumin/Globulin Ratio 0.6 (1.0-2.7) L Assessment Post-op Diagnosis same Plan Problems: (1) Malnutrition Assessment & Plan: DAILY ESTIMATED NEEDS: Needs based on ESRD+ HD, underweight, wound/ 39.5kg 35-40 kcals/kg 3151-1798 total kcals 1.25-1.8 g protein/kg 49-71 g total protein 20-22 mL/kg 790-869 total fluid mLs NUTRITION DIAGNOSIS: * Increased kcal and protein needs r/t underweight status, HD needs, wuond healing as evidenced by pt is underweight per guidelines, ESRD, on HD, admitted non-blanching erythema wounds @ BL heels and sacrum * Swallowing difficulty R/T dysphagia as evidenced by IS TECHNICIAN recommends temporary nonoral feeding at this time, s/p NGT insertion, on NGT feeding-> now s/p self removal, NPO. CURRENT TF:NPO PO DIET RECOMMENDATIONS: WHEN SAFE FOR ORAL DIET -> renal/ texture per IS TECHNICIAN ENTERAL NUTRITION RECOMMENDATIONS: W/ GI access: Nepro @ 35ml/hr x 22 hrs to provide 770ml, 1386kcal, 62g prot, 560ml free water * W/ GI access, resume TF on Nepro * Initiate Nepro @ 15ml/hr x 6 hrs, advance 10ml q 4-6 hrs as tolerated to goal rate. * Hold 1 hour before and after Synthroid med * HOB over 30 degrees/ water flush per MD. ADDITIONAL RECOMMENDATIONS: 1) Calibrated bed scale wt for accurate CBW -> daily wt monitoring Per HD record: dry wt on 07/30=39.5kg (87lbs) 2) Wound care: (W/ GI access) add Nephorivte x 1 + Balta BID 3) Monitor NPO status: without GI access at this time, s/p pulling out NGT 4) Monitor for hypoglycemia while NPO 5) Monitor for continuity of HD (2) Septic arthritis Assessment & Plan: Pt presented on admission with generalized scaly rash . pt noted to be restless and scratching at skin. Bleeding from oral mucosa noted. Joint deformity noted to R shoulder. Surgical incision approximated with 11 sutures. Erythema but no exudate,or elevation in skin temp at site of incision. Historical incision R hip that is tunneled.Small amt seropurulent exudate noted. Periwound is erythematous,but no elevation in skin temp noted. No odor noted. Non-blanching erythema noted to sacrum. Perianal area is erythematous and excoriated. L heel is boggy with non-blanching erythema. R heel is soft with non-blanching erythema. No evidence of skin breakdown to all other bony prominences. Tx.plan: Cover R shoulder with Drsg and change daily and prn. Cleanse R hip wound with Saline. Apply Therahoney.Apply Cavilon Skin Barrier periwound. Cover with Optifoam drsg. Change every 3 days and prn. Apply Moisture Barrier Paste to perianal area and buttocks. Cover Sacrum with Optifoam drsg. Change every 3 days and prn. Apply Cavilon Skin Barrier to both heels. Cover each heel with Optifoam drsg. Change every 7 days and prn. APM/ELVIA Mattress overlay. Reposition at least every 2hours or as tolerated. Off-load heels with pillow. HD cath necessary HD as renal likely will need intubation (3) Wound, open, hip or thigh with complication Assessment & Plan: slow healing will need nutritional optimization difficult ng tube peg when stable sutures removed from right shoulder comfortable wean vent may need trach (4) Abscess of right hip (5) possible septic arthritis (6) Renal failure (ARF), acute on chronic Assessment & Plan: cont HD will need tunneled cath placement okay to use fem line for now but will need change soon. line monitored and clean dressings going well (7) Pneumonia Assessment & Plan: intubated on vent support not tolerating weaning may need trach hemothorax likely after thoracentesis Chest CT noted Left chest tube placed With plan for trach chest tube can be considered but overall prognosis is very poor s/p trach left chest tub eout cxr noted and okay downgrade left pleural effusion dressings saturated will need to monitor. may need another chest tube as may not heal well on left side Camilo James Sep 14, 2019 10:52
[2019-09-14 12:00] VITALS: BP 163/84
[2019-09-14 16:00] VITALS: BP 155/77
[2019-09-14 20:00] VITALS: BP 152/77
--- NOTE | 2019-09-14 20:21 | General Progress Note ---
Assessment/Plan Status: stable, not improved, unchanged, deteriorating Assessment/Plan: Assessment - Severe ulcerative esophagitis - Resp failure - s/p recent Chest tube - thrombocytopenia --> resolved - Renal failure - aspiration risk --> s/p PEG - anemia - mild elevation in alk phos - now rising levels - bradycardia - Poor prognosis Recommendations - GT care - water flushes - elevate HOB - monitor H&H - follow LFT - vent Subjective Allergies: Coded Allergies: VANCOMYCIN (Unverified Allergy, Unknown, 08/02/19) Subjective Above noted No events overnight d/w RN Objective Last 24 Hour Vital Signs Date Time Temp Pulse Resp B/P (MAP) Pulse Ox O2 Delivery O2 Flow Rate FiO2 09/14/19 19:34 68 18 100 Mechanical Ventilator 30 68 18 30 09/14/19 17:15 155/77 09/14/19 17:14 64 155/77 09/14/19 17:01 64 18 30 09/14/19 16:00 Mechanical Ventilator Mechanical Ventilator Mechanical Ventilator Mechanical Ventilator 09/14/19 16:00 96.1 64 19 155/77 (103) 100 09/14/19 16:00 30 09/14/19 15:26 61 18 100 Mechanical Ventilator 30 63 19 30 09/14/19 15:25 61 09/14/19 13:23 64 18 30 09/14/19 12:28 163/84 09/14/19 12:00 30 09/14/19 12:00 Mechanical Ventilator Mechanical Ventilator Mechanical Ventilator Mechanical Ventilator 09/14/19 12:00 96.1 73 18 163/84 (110) 100 09/14/19 11:42 72 18 30 09/14/19 11:36 73 09/14/19 08:51 72 152/87 09/14/19 08:30 64 18 30 09/14/19 08:08 76 21 100 Mechanical Ventilator 30 79 20 30 09/14/19 08:00 97.7 72 18 152/87 (108) 100 09/14/19 08:00 Mechanical Ventilator Mechanical Ventilator Mechanical Ventilator Mechanical Ventilator 09/14/19 08:00 30 09/14/19 07:26 73 09/14/19 07:13 155/86 09/14/19 05:25 66 20 30 09/14/19 04:00 Mechanical Ventilator Mechanical Ventilator Mechanical Ventilator Mechanical Ventilator 09/14/19 04:00 66 09/14/19 04:00 97.7 70 18 155/86 (109) 100 09/14/19 04:00 30 09/14/19 03:10 66 20 99 Mechanical Ventilator 30 68 20 30 09/14/19 01:30 75 18 30 09/14/19 01:30 154/83 09/14/19 00:00 97.7 70 24 154/83 (106) 100 09/14/19 00:00 Mechanical Ventilator Mechanical Ventilator Mechanical Ventilator Mechanical Ventilator 09/14/19 00:00 68 09/14/19 00:00 30 09/13/19 23:52 67 18 99 Mechanical Ventilator 30 69 28 30 09/13/19 21:02 69 18 30 Intake and Output 09/13/19 09/14/19 19:00 07:00 Intake Total 420 ml 350 ml Output Total 1200 ml Balance -780 ml 350 ml Tube Feeding 420 ml 350 ml Output Urine Total 200 ml Hemodialysis UF 1000 ml # Bowel Movements 4 3 Laboratory Tests 09/14/19 05:35: White Blood Count 7.8, Red Blood Count 3.97L, Hemoglobin 11.7L, Hematocrit 35.4L , Mean Corpuscular Volume 89, Mean Corpuscular Hemoglobin 29.6, Mean Corpuscular Hemoglobin Concent 33.2, Red Cell Distribution Width 15.0H, Platelet Count 473H, Mean Platelet Volume 5.0L, Neutrophils (%) (Auto) 64.7, Lymphocytes (%) (Auto) 28.7, Monocytes (%) (Auto) 4.7, Eosinophils (%) (Auto) 1.0, Basophils (%) (Auto) 0.9, Sodium Level 146H, Potassium Level 4.6, Chloride Level 105, Carbon Dioxide Level 24, Anion Gap 17H, Blood Urea Nitrogen 52H, Creatinine 2.8H, Estimat Glomerular Filtration Rate 16.3, Glucose Level 112H, Calcium Level 9.9, Phosphorus Level 3.4, Magnesium Level 2.4, Total Bilirubin 0.6, Aspartate Amino Transf (AST/SGOT) 109H, Alanine Aminotransferase (ALT/SGPT ) 42, Alkaline Phosphatase 194H, C-Reactive Protein, Quantitative 13.1H, Pro-B- Type Natriuretic Peptide > 64805R, Total Protein 7.6, Albumin 2.7L, Globulin 4.9 , Albumin/Globulin Ratio 0.6L Height (Feet): 5 Height (Inches): 4.00 Weight (Pounds): 112 Objective Debilitated frail woman NCAT (+) on vent supple, (+) trach scattered ronchi RR abd soft ND NT, (+) GT no edema Cristy Elizondo MD Sep 14, 2019 20:20
[2019-09-15] VITALS: BP 154/88
[2019-09-15] MEDS: HydrALAZINE 25mg tab NG SCH ×4 (00:28→18:14)
--- NOTE | 2019-09-15 02:15 | Progress Note ---
DATE: 09/14/2019 CARDIOLOGY PROGRESS NOTE SUBJECTIVE: The patient remains on ventilator support via tracheostomy. Comfortable and in no respiratory distress. OBJECTIVE: VITAL SIGNS: Blood pressure 155/86, heart rate 79, and respiratory rate 20. LUNGS: Bilateral breath sounds. CARDIAC: Regular rhythm and rate. Normal S1 and S2. ABDOMEN: Soft. GJ tube intact. EXTREMITIES: No edema. LABORATORY DATA: White count is 7.8 and hemoglobin 11.7. Natriuretic peptide over 35,000. Albumin 2.7. BUN 52 and creatinine 2.8. IMPRESSION: 1. Respiratory failure. 2. Resolved septic shock. 3. Resolved bradycardia. 4. Hypothyroidism, now with adequate replacement therapy achieved. 5. Chronic diastolic congestive heart failure. PLAN: 1. Continue current management. 2. Placement discussed with disease case manager rn. Options limited due to dialysis requirements. 3. Current medication regimen reviewed and updated. Abel Stubbs M.D. DR: ARETHA JOB#: [id number] CC:
[2019-09-15] MEDS: Albuterol/Ipratropium 3ml neb HHN SCH ×6 (03:08→23:24)
[2019-09-15 04:00] VITALS: BP 145/70
--- NOTE | 2019-09-15 06:52 | Hematology/Onc Progress Note ---
Assessment/Plan Assessment/Plan # Thrombocytopenia - potential causes multifactorial, evaluate liver and viral etiologies to begin, in this case due to sepsis with septic shock also with cirrhosis and liver disease --> Hep panel and HIV ordered --> neg --> US abd to evaluate for cirrhosis and hsm ordered --> reviewed --> Peripheral smear ordered to evaluate for blasts /schistocytes --> none noted --> abx and other meds have been reviewed --> ok for ppx if plt >50k w/ either heparin or lovenox --> Transfuse if Plt < 20k and fever, or if Plt < 10k without fever --> okay for permacath change once plt better--> for 08/14 --> plt trend: 43-->83-->237k-->292-->341-->315-->388 -->444-->530-->252k-->344 # Anemia of chronic disease due to underlying chronic medical issues, multifactorial v Gi bleed --> Anemia workup has been ordered, rule out gi bleed --> No evidence of hemolysis is noted, peripheral smear has been reviewed. --> Hgb goal >7. Transfuse prn. --> Epogen has been started --> HOLD OFF IRON ferritin is >1000 --> Medications have been reviewed --> low threshold for gi evaluation in case has occult + --> hgb 9-->6.7-->9.2 -->10.5-->10.6 -->10.7-->10-->10.5-->9.8-->10.4-->9.5--> 3.6-->9.6-->9.7-->10-->10.3-->11 --> blood tx: 08/11, 08/31 --> CT Chest r/o hemothorax --> does show confirmation of a large left hemothorax. Complete atelectasis of the left lower lobe and partial left upper lobe atelectasis demonstrated. Mild rightward shift of the heart and mediastinum. # Sepsis with shock. --> abx as per id, recs noted --> pressors as needed # Healthcare-associated pneumonia. --> recs reviewed --> abx: jung/micafungin-->jung-->off --> 08/24 chest: moderate left pleural effusion # Severe protein-calorie malnutrition. --> nutritional support # End-stage renal disease --> had as renal hd --> with permacath # History of hypertension. --> per cards, now with Bradycardia. # Resp failure s/p vent/trach # HypoThyroid # Ngt feedings # Dvt ppx scd's The timing of this note does not necessarily reflect the time of the patient was seen. Greatly appreciate consultation. Subjective Constitutional: Denies: no symptoms, chills, fever, malaise, weakness, other HEENT: Denies: no symptoms, eye pain, blurred vision, tearing, double vision, ear pain, ear discharge, nose pain, nose congestion, throat pain, throat swelling, mouth pain, mouth swelling, other Cardiovascular: Denies: no symptoms, chest pain, edema, irregular heart rate, lightheadedness, palpitations, syncope, other Genitourinary: Denies: no symptoms, burning, discharge, frequency, flank pain, hematuria, incontinence, pain, urgency, other Neurologic/Psychiatric: Denies: no symptoms, anxiety, depressed, emotional problems, headache, numbness, paresthesia, pre-existing deficit, seizure, tingling, tremors, weakness, other Endocrine: Denies: no symptoms, excessive sweating, flushing, intolerance to cold, intolerance to heat, increased hunger, increased thirst, increased urine, unexplained weight gain, unexplained weight loss, other Hematologic/Lymphatic: Denies: no symptoms, anemia, easy bleeding, easy bruising, adenopathy, other Allergies: Coded Allergies: VANCOMYCIN (Unverified Allergy, Unknown, 08/02/19) Subjective 08/11: no bleeding or chills, labs reviewed, no major bleeding, plt less than 50k 08/12: icu, s/p blood, hgb improved to 9.2, 08/14: icu, pending consent for thora and permacath, labs reviewed 08/15: new permacath placed, no bleeding, for hd, plt much improved, started lovenox sq 08/16: ett to be adjusted, bp on high end, micafungin started, possible bronch 08/17: weaning as per pulm, no events otherwise, labs noted 08/18: no events no bleeding, remains confused on vent, for hd 08/20: icu, failed to wean, labs reviewed, jung 08/21: resting in bed, no overnight events, labs reviewed 08/22: awake, confused, restraints, no overnight events 08/23: no events, no bleeding, on ppi bid 08/24: icu, failed to wean, labs reviewed 08/25: no overnight events, us chest, restraints, afebrile 08/26 difficult in weaning, nad, seen by surg, pulm labs noted 08/27 awake on restraints, thoracentesis for am, labs reviewed 08/29 no bleeding, no night sweats, no major changes, on ppi bid 08/30 no major events, remains on vent, no bleeding, dw pcp 08/31 hgb dropped to 3.6, has been transfused with prbc, in icu, dw Rn, ct chest pend 09/01 no major events, no bleeding, labs noted, hgb remains low, hgb 9.6 09/03 lethargic, left chest tube dry/intact, off abx, vent 09/04 remains on a vent, synthroid, labs reviewed 09/05 awake and alert, no acute events, hgb 9.8, no new orders 09/06 no bleeding or chills, labs noted, no major events overnight, david rn 09/07 no events, no night sweats, no bleeding, no fc, remains agitated in the am 09/08 remains in the icu, trach was done, on vent, abx off, on epo 09/10 transferred to sdu, restraints, vent, labs reviewed 09/11 tube feeds have been ongoing, no f/c, labs reviewed 09/12 no events, no bleeding, no night sweats, hgb 10 09/13 tsh is improved, remains confused, hgb is 11, no bleeding 09/14 no events, no bleeding, labs noted, vitals stable Objective Objective Current Medications Medications (Trade) Dose Ordered Sig/Javier Route PRN Reason Start Time Stop Time Status Last Admin Dose Admin Acetaminophen (Tylenol) 650 mg Q4H PRN GT Mild Pain/Temp > 100.5 09/03/19 07:00 10/03/19 06:59 09/09/19 06:13 Acetylcysteine (Mucomyst) 100 mg Q4HRT N 08/31/19 19:00 11/29/19 18:59 09/15/19 03:08 Albuterol/ Ipratropium (Albuterol/ Ipratropium) 3 ml Q4HRT N 09/11/19 11:00 09/16/19 10:59 09/15/19 03:08 Amlodipine Besylate (Norvasc) 5 mg BID NG 08/23/19 01:45 09/22/19 01:44 09/14/19 17:14 Dextrose (Dextrose 50%) 25 ml Q30M PRN IV Hypoglycemia 09/02/19 06:15 12/01/19 06:14 09/04/19 12:11 Dextrose (Dextrose 50%) 50 ml Q30M PRN IV Hypoglycemia 09/02/19 06:15 12/01/19 06:14 Hydralazine HCl (Apresoline) 10 mg Q4H PRN IV For High Blood Pressure 08/18/19 12:44 09/17/19 12:43 09/01/19 20:27 Hydralazine HCl (Apresoline) 25 mg Q6HR NG 08/23/19 06:00 09/22/19 05:59 09/15/19 06:11 Lansoprazole (Prevacid) 30 mg BID GT 08/19/19 09:00 09/18/19 08:59 09/14/19 17:14 Levothyroxine Sodium (Synthroid) 100 mcg DAILY@0630 ORAL 09/14/19 06:30 09/24/19 06:29 09/15/19 06:11 Last 24 Hour Vital Signs Date Time Temp Pulse Resp B/P (MAP) Pulse Ox O2 Delivery O2 Flow Rate FiO2 09/15/19 06:11 145/70 09/15/19 05:01 74 18 30 09/15/19 04:00 98.4 78 18 145/70 (95) 100 09/15/19 04:00 30 09/15/19 04:00 Mechanical Ventilator Mechanical Ventilator Mechanical Ventilator Mechanical Ventilator 09/15/19 04:00 83 09/15/19 03:08 88 18 100 Mechanical Ventilator 30 85 18 30 09/15/19 00:55 80 18 30 09/15/19 00:28 154/88 09/15/19 00:00 89 09/15/19 00:00 98.6 86 18 154/88 (110) 99 09/15/19 00:00 Mechanical Ventilator Mechanical Ventilator Mechanical Ventilator Mechanical Ventilator 09/14/19 22:50 79 18 100 Mechanical Ventilator 30 82 18 30 09/14/19 21:03 71 19 30 09/14/19 20:00 97.8 76 18 152/77 (102) 99 09/14/19 20:00 30 09/14/19 20:00 Mechanical Ventilator Mechanical Ventilator Mechanical Ventilator Mechanical Ventilator 09/14/19 20:00 70 09/14/19 19:34 68 18 100 Mechanical Ventilator 30 68 18 30 09/14/19 17:15 155/77 09/14/19 17:14 64 155/77 09/14/19 17:01 64 18 30 09/14/19 16:00 Mechanical Ventilator Mechanical Ventilator Mechanical Ventilator Mechanical Ventilator 09/14/19 16:00 96.1 64 19 155/77 (103) 100 09/14/19 16:00 30 09/14/19 15:26 61 18 100 Mechanical Ventilator 30 63 19 30 09/14/19 15:25 61 09/14/19 13:23 64 18 30 09/14/19 12:28 163/84 09/14/19 12:00 30 09/14/19 12:00 Mechanical Ventilator Mechanical Ventilator Mechanical Ventilator Mechanical Ventilator 09/14/19 12:00 96.1 73 18 163/84 (110) 100 09/14/19 11:42 72 18 30 09/14/19 11:36 73 09/14/19 08:51 72 152/87 09/14/19 08:30 64 18 30 09/14/19 08:08 76 21 100 Mechanical Ventilator 30 79 20 30 09/14/19 08:00 97.7 72 18 152/87 (108) 100 09/14/19 08:00 Mechanical Ventilator Mechanical Ventilator Mechanical Ventilator Mechanical Ventilator 09/14/19 08:00 30 09/14/19 07:26 73 09/14/19 07:13 155/86 09/14/19 05:25 66 20 30 09/14/19 04:00 Mechanical Ventilator Mechanical Ventilator Mechanical Ventilator Mechanical Ventilator 09/14/19 04:00 66 09/14/19 04:00 97.7 70 18 155/86 (109) 100 09/14/19 04:00 30 09/14/19 03:10 66 20 99 Mechanical Ventilator 30 68 20 30 09/14/19 01:30 75 18 30 09/14/19 01:30 154/83 09/14/19 00:00 97.7 70 24 154/83 (106) 100 09/14/19 00:00 Mechanical Ventilator Mechanical Ventilator Mechanical Ventilator Mechanical Ventilator 09/14/19 00:00 68 09/14/19 00:00 30 09/13/19 23:52 67 18 99 Mechanical Ventilator 30 69 28 30 09/13/19 21:02 69 18 30 09/13/19 20:00 76 09/13/19 20:00 30 09/13/19 20:00 98.1 88 24 151/76 (101) 100 09/13/19 20:00 30 09/13/19 20:00 Mechanical Ventilator Mechanical Ventilator Mechanical Ventilator Mechanical Ventilator 09/13/19 19:58 64 30 99 Mechanical Ventilator 30 64 28 30 09/13/19 17:48 85 148/80 09/13/19 17:48 148/80 09/13/19 17:33 96.5 85 18 148/80 (102) 100 09/13/19 17:20 84 20 30 09/13/19 16:10 30 09/13/19 16:00 Mechanical Ventilator Mechanical Ventilator Mechanical Ventilator Mechanical Ventilator 09/13/19 16:00 97.0 85 18 157/65 (95) 100 09/13/19 15:54 76 09/13/19 14:39 64 18 30 09/13/19 12:56 69 18 30 09/13/19 12:00 Mechanical Ventilator Mechanical Ventilator Mechanical Ventilator Mechanical Ventilator 09/13/19 12:00 30 09/13/19 12:00 96.5 67 18 169/82 (111) 100 09/13/19 11:56 62 09/13/19 11:14 80 20 100 Mechanical Ventilator 30 80 20 30 09/13/19 09:10 72 19 30 09/13/19 08:00 97.5 72 24 165/89 (114) 99 09/13/19 08:00 30 09/13/19 08:00 Mechanical Ventilator Mechanical Ventilator Mechanical Ventilator Mechanical Ventilator 09/13/19 07:56 78 09/13/19 07:12 70 18 30 Intake and Output 09/14/19 09/15/19 19:00 07:00 Intake Total 520 ml 485 ml Output Total 150 ml 250 ml Balance 370 ml 235 ml Intake Free Water 50 ml 100 ml Tube Feeding 420 ml 385 ml Other 50 ml Output Urine Total 150 ml 250 ml # Bowel Movements 2 2 Labs Test 09/14/19 05:35 White Blood Count 7.8 K/UL (4.8-10.8) Red Blood Count 3.97 M/UL (4.20-5.40) Hemoglobin 11.7 G/DL (12.0-16.0) Hematocrit 35.4 % (37.0-47.0) Mean Corpuscular Volume 89 FL (80-99) Mean Corpuscular Hemoglobin 29.6 PG (27.0-31.0) Mean Corpuscular Hemoglobin Concent 33.2 G/DL (32.0-36.0) Red Cell Distribution Width 15.0 % (11.6-14.8) Platelet Count 473 K/UL (150-450) Mean Platelet Volume 5.0 FL (6.5-10.1) Neutrophils (%) (Auto) 64.7 % (45.0-75.0) Lymphocytes (%) (Auto) 28.7 % (20.0-45.0) Monocytes (%) (Auto) 4.7 % (1.0-10.0) Eosinophils (%) (Auto) 1.0 % (0.0-3.0) Basophils (%) (Auto) 0.9 % (0.0-2.0) Sodium Level 146 MMOL/L (136-145) Potassium Level 4.6 MMOL/L (3.5-5.1) Chloride Level 105 MMOL/L (98-107) Carbon Dioxide Level 24 MMOL/L (21-32) Anion Gap 17 mmol/L (5-15) Blood Urea Nitrogen 52 mg/dL (7-18) Creatinine 2.8 MG/DL (0.55-1.30) Estimat Glomerular Filtration Rate 16.3 mL/min (>60) Glucose Level 112 MG/DL (74-106) Calcium Level 9.9 MG/DL (8.5-10.1) Phosphorus Level 3.4 MG/DL (2.5-4.9) Magnesium Level 2.4 MG/DL (1.8-2.4) Total Bilirubin 0.6 MG/DL (0.2-1.0) Aspartate Amino Transf (AST/SGOT) 109 U/L (15-37) Alanine Aminotransferase (ALT/SGPT) 42 U/L (12-78) Alkaline Phosphatase 194 U/L (46-116) C-Reactive Protein, Quantitative 13.1 mg/dL (0.00-0.90) Pro-B-Type Natriuretic Peptide > 59089 pg/mL (0-125) Total Protein 7.6 G/DL (6.4-8.2) Albumin 2.7 G/DL (3.4-5.0) Globulin 4.9 g/dL Albumin/Globulin Ratio 0.6 (1.0-2.7) Height (Feet): 5 Height (Inches): 4.00 Weight (Pounds): 112 Objective gen: nad pulm: on trach+ / vent, decreased breath sounds left, chest tube+ cv: rrr, no gmr abd: sfot, nt, nd ++ gt ext: no cce Gio Rob MD Sep 15, 2019 06:52
--- NOTE | 2019-09-15 07:26 | General Progress Note ---
Assessment/Plan Problem List: (1) Hypothyroid ICD Codes: E03.9 - Hypothyroidism, unspecified SNOMED: 62481972 (2) ESRD (end stage renal disease) on dialysis ICD Codes: N18.6 - End stage renal disease; Z99.2 - Dependence on renal dialysis SNOMED: 185874427 (3) Hypotension ICD Codes: I95.9 - Hypotension, unspecified SNOMED: 53541729 Qualifiers: Qualified Codes: I95.3 - Hypotension of hemodialysis (4) Pneumonia ICD Codes: J18.9 - Pneumonia, unspecified organism SNOMED: 919932915 Qualifiers: Qualified Codes: J18.9 - Pneumonia, unspecified organism (5) Diabetes mellitus ICD Codes: E11.9 - Type 2 diabetes mellitus without complications SNOMED: 61154337 Status: stable, not improved, unchanged, deteriorating Assessment/Plan: TSH improved and normalized - he was treated with Levothyroxine IV 50 mcg for couple of weeks - continue Levothyroxine tablet dose to 100 mcg daily - repeat TSH, free 4 in one week continue glucose monitoring without insulin coverage hypoglycemia protocol in order Subjective ROS Limited/Unobtainable: Yes Allergies: Coded Allergies: VANCOMYCIN (Unverified Allergy, Unknown, 08/02/19) Subjective events noted interval notes reviewed stable glucose values Item Value Date Time Bedside Blood Glucose 122 mg/dl H 09/15/19 0600 Bedside Blood Glucose 141 mg/dl H 09/15/19 0000 Bedside Blood Glucose 143 mg/dl H 09/14/19 1715 Bedside Blood Glucose 139 mg/dl H 09/14/19 1200 Objective Last 24 Hour Vital Signs Date Time Temp Pulse Resp B/P (MAP) Pulse Ox O2 Delivery O2 Flow Rate FiO2 09/15/19 07:12 74 18 100 Mechanical Ventilator 30 79 18 30 09/15/19 06:11 145/70 09/15/19 05:01 74 18 30 09/15/19 04:00 98.4 78 18 145/70 (95) 100 09/15/19 04:00 30 09/15/19 04:00 Mechanical Ventilator Mechanical Ventilator Mechanical Ventilator Mechanical Ventilator 09/15/19 04:00 83 09/15/19 03:08 88 18 100 Mechanical Ventilator 30 85 18 30 09/15/19 00:55 80 18 30 09/15/19 00:28 154/88 09/15/19 00:00 89 09/15/19 00:00 98.6 86 18 154/88 (110) 99 09/15/19 00:00 Mechanical Ventilator Mechanical Ventilator Mechanical Ventilator Mechanical Ventilator 09/14/19 22:50 79 18 100 Mechanical Ventilator 30 82 18 30 09/14/19 21:03 71 19 30 09/14/19 20:00 97.8 76 18 152/77 (102) 99 09/14/19 20:00 30 09/14/19 20:00 Mechanical Ventilator Mechanical Ventilator Mechanical Ventilator Mechanical Ventilator 09/14/19 20:00 70 09/14/19 19:34 68 18 100 Mechanical Ventilator 30 68 18 30 09/14/19 17:15 155/77 09/14/19 17:14 64 155/77 09/14/19 17:01 64 18 30 09/14/19 16:00 Mechanical Ventilator Mechanical Ventilator Mechanical Ventilator Mechanical Ventilator 09/14/19 16:00 96.1 64 19 155/77 (103) 100 09/14/19 16:00 30 09/14/19 15:26 61 18 100 Mechanical Ventilator 30 63 19 30 09/14/19 15:25 61 09/14/19 13:23 64 18 30 09/14/19 12:28 163/84 09/14/19 12:00 30 09/14/19 12:00 Mechanical Ventilator Mechanical Ventilator Mechanical Ventilator Mechanical Ventilator 09/14/19 12:00 96.1 73 18 163/84 (110) 100 09/14/19 11:42 72 18 30 09/14/19 11:36 73 09/14/19 08:51 72 152/87 09/14/19 08:30 64 18 30 09/14/19 08:08 76 21 100 Mechanical Ventilator 30 79 20 30 09/14/19 08:00 97.7 72 18 152/87 (108) 100 09/14/19 08:00 Mechanical Ventilator Mechanical Ventilator Mechanical Ventilator Mechanical Ventilator 09/14/19 08:00 30 09/14/19 07:26 73 Intake and Output 09/14/19 09/15/19 19:00 07:00 Intake Total 520 ml 520 ml Output Total 150 ml 250 ml Balance 370 ml 270 ml Intake Free Water 50 ml 100 ml Tube Feeding 420 ml 420 ml Other 50 ml Output Urine Total 150 ml 250 ml # Bowel Movements 2 2 Height (Feet): 5 Height (Inches): 4.00 Weight (Pounds): 112 General Appearance: no apparent distress Neck: supple Cardiovascular: normal rate Respiratory/Chest: decreased breath sounds Abdomen: normal bowel sounds Objective Current Medications Medications (Trade) Dose Ordered Sig/Javier Route PRN Reason Start Time Stop Time Status Last Admin Dose Admin Acetaminophen (Tylenol) 650 mg Q4H PRN GT Mild Pain/Temp > 100.5 09/03/19 07:00 10/03/19 06:59 09/09/19 06:13 Acetylcysteine (Mucomyst) 100 mg Q4HRT N 08/31/19 19:00 11/29/19 18:59 09/15/19 07:11 Albuterol/ Ipratropium (Albuterol/ Ipratropium) 3 ml Q4HRT N 09/11/19 11:00 09/16/19 10:59 09/15/19 07:11 Amlodipine Besylate (Norvasc) 5 mg BID NG 08/23/19 01:45 09/22/19 01:44 09/14/19 17:14 Dextrose (Dextrose 50%) 25 ml Q30M PRN IV Hypoglycemia 09/02/19 06:15 12/01/19 06:14 09/04/19 12:11 Dextrose (Dextrose 50%) 50 ml Q30M PRN IV Hypoglycemia 09/02/19 06:15 12/01/19 06:14 Hydralazine HCl (Apresoline) 10 mg Q4H PRN IV For High Blood Pressure 08/18/19 12:44 09/17/19 12:43 09/01/19 20:27 Hydralazine HCl (Apresoline) 25 mg Q6HR NG 08/23/19 06:00 09/22/19 05:59 09/15/19 06:11 Lansoprazole (Prevacid) 30 mg BID GT 08/19/19 09:00 09/18/19 08:59 09/14/19 17:14 Levothyroxine Sodium (Synthroid) 100 mcg DAILY@0630 ORAL 09/14/19 06:30 09/24/19 06:29 09/15/19 06:11 Antonio Jacome MD Sep 15, 2019 07:26
[2019-09-15 08:00] VITALS: BP 148/75
--- NOTE | 2019-09-15 08:31 | General Progress Note ---
Assessment/Plan Problem List: (1) Failure to thrive (0-17) ICD Codes: R62.51 - Failure to thrive (0-17) SNOMED: 622514863 (2) Hypertensive kidney disease ICD Codes: I12.9 - Hypertensive chronic kidney disease with stage 1 through stage 4 chronic kidney disease, or unspecified chronic kidney disease SNOMED: 86875222 (3) Pneumonia ICD Codes: J18.9 - Pneumonia, unspecified organism SNOMED: 276851232 Qualifiers: Qualified Codes: J18.9 - Pneumonia, unspecified organism (4) ESRD (end stage renal disease) ICD Codes: N18.6 - End stage renal disease SNOMED: 22083960 (5) Septic arthritis ICD Codes: M00.9 - Pyogenic arthritis, unspecified SNOMED: 910684254 (6) Thrombocytopenia ICD Codes: D69.6 - Thrombocytopenia, unspecified SNOMED: 354975709 (7) Hypotension ICD Codes: I95.9 - Hypotension, unspecified SNOMED: 45404864 Qualifiers: Qualified Codes: I95.3 - Hypotension of hemodialysis (8) Malnutrition ICD Codes: E46 - Unspecified protein-calorie malnutrition SNOMED: 03729741 Status: stable, not improved, unchanged, deteriorating Assessment/Plan: Continue vent support. Wean as able. Suctioning and pulmonary toilet. Continue G-tube feedings. Monitor residuals Continue current blood pressure regimen with close monitoring of blood pressure. Hemodialysis with ultrafiltration per nephrology. Turn every 2 hours and good skin care. Discharge planning in progress Subjective ROS Limited/Unobtainable: Yes Constitutional: Reports: malaise, weakness HEENT: Reports: no symptoms Cardiovascular: Reports: no symptoms Gastrointestinal/Abdominal: Reports: difficulty swallowing Genitourinary: Reports: no symptoms Neurologic/Psychiatric: Reports: pre-existing deficit Endocrine: Reports: no symptoms Hematologic/Lymphatic: Reports: anemia Allergies: Coded Allergies: VANCOMYCIN (Unverified Allergy, Unknown, 08/02/19) All Systems: reviewed and negative except above Subjective No overnight events. Patient remained stable on the ventilator. She opens her eyes and does track. Patient has been tolerating feedings without any residuals. There are no fevers or chills. No labs today. Objective Last 24 Hour Vital Signs Date Time Temp Pulse Resp B/P (MAP) Pulse Ox O2 Delivery O2 Flow Rate FiO2 09/15/19 07:12 74 18 100 Mechanical Ventilator 30 79 18 30 09/15/19 06:11 145/70 09/15/19 05:01 74 18 30 09/15/19 04:00 98.4 78 18 145/70 (95) 100 09/15/19 04:00 30 09/15/19 04:00 Mechanical Ventilator Mechanical Ventilator Mechanical Ventilator Mechanical Ventilator 09/15/19 04:00 83 09/15/19 03:08 88 18 100 Mechanical Ventilator 30 85 18 30 09/15/19 00:55 80 18 30 09/15/19 00:28 154/88 09/15/19 00:00 89 09/15/19 00:00 98.6 86 18 154/88 (110) 99 09/15/19 00:00 Mechanical Ventilator Mechanical Ventilator Mechanical Ventilator Mechanical Ventilator 09/14/19 22:50 79 18 100 Mechanical Ventilator 30 82 18 30 09/14/19 21:03 71 19 30 09/14/19 20:00 97.8 76 18 152/77 (102) 99 09/14/19 20:00 30 09/14/19 20:00 Mechanical Ventilator Mechanical Ventilator Mechanical Ventilator Mechanical Ventilator 09/14/19 20:00 70 09/14/19 19:34 68 18 100 Mechanical Ventilator 30 68 18 30 09/14/19 17:15 155/77 09/14/19 17:14 64 155/77 09/14/19 17:01 64 18 30 09/14/19 16:00 Mechanical Ventilator Mechanical Ventilator Mechanical Ventilator Mechanical Ventilator 09/14/19 16:00 96.1 64 19 155/77 (103) 100 09/14/19 16:00 30 09/14/19 15:26 61 18 100 Mechanical Ventilator 30 63 19 30 09/14/19 15:25 61 09/14/19 13:23 64 18 30 09/14/19 12:28 163/84 09/14/19 12:00 30 09/14/19 12:00 Mechanical Ventilator Mechanical Ventilator Mechanical Ventilator Mechanical Ventilator 09/14/19 12:00 96.1 73 18 163/84 (110) 100 09/14/19 11:42 72 18 30 09/14/19 11:36 73 09/14/19 08:51 72 152/87 09/14/19 08:30 64 18 30 Intake and Output 09/14/19 09/15/19 19:00 07:00 Intake Total 520 ml 450 ml Output Total 150 ml 250 ml Balance 370 ml 200 ml Intake Free Water 50 ml 100 ml Tube Feeding 420 ml 350 ml Other 50 ml Output Urine Total 150 ml 250 ml # Bowel Movements 2 2 Height (Feet): 5 Height (Inches): 4.00 Weight (Pounds): 112 Objective General Appearance: WD/WN, awake. looks around. no distress. thin and frail Neck: supple +trach Cardiovascular: normal rate Respiratory/Chest: rhonchi - bilaterally Abdomen: normal bowel sounds, non tender, soft, no organomegaly Edema: no edema noted Arm (L), no edema noted Arm (R), no edema noted Leg (L), no edema noted Leg (R), no edema noted Pedal (L), no edema noted Pedal (R), no edema noted Generalized Neurologic: disoriented, aphasia Skin: +excoriations Nate Beltran MD Sep 15, 2019 08:30
--- NOTE | 2019-09-15 08:59 | Critical Care Progress Note ---
Assessment/Plan Assessment/Plan respiratory failure hemoptysis resolved hypoxemia chronic renal failure toxic met encephalopathy severe protein calorie malnutrition cachexia left lung whiteout/collapse, improved with intubation s/p intubation anemia ? blood loss pulmonary edema with elevated BNP + pleural effusion worsening s/p CT placement and removal s/p trach hypernatremia PLAN trach care as is monitor for change care noted and reviewed monitor for fluid retention; hope to avoid tap reviewed care and continue to monitor not able to wean and will need subacute care prognosis poor overall for change keep negative and monitor osmotic pressures fully dependent close follow up discussed elevated head and monitor ROM watch fluid status and keep negative nutrition and monitor residuals isolation reviewed off load as able and monitor skin exam ROM as able and monitor contractures impression, plan, and exam edited and reviewed in detail care discussed with street car mechanic - Subjective Interval Events: care noted no distress worsening effusion ROS Limited/Unobtainable: Yes Condition: critical EKG Rhythm: Sinus Rhythm Residuals: minimal Tube Feeding Tolerated: yes I&O: Intake and Output 09/14/19 09/15/19 19:00 07:00 Intake Total 520 ml 450 ml Output Total 150 ml 250 ml Balance 370 ml 200 ml Intake Free Water 50 ml 100 ml Tube Feeding 420 ml 350 ml Other 50 ml Output Urine Total 150 ml 250 ml # Bowel Movements 2 2 Critical Care - Objective ET-Tube: 7.0 ET Position: 19 Last 24 Hour Vital Signs Date Time Temp Pulse Resp B/P (MAP) Pulse Ox O2 Delivery O2 Flow Rate FiO2 09/15/19 08:32 92 20 30 09/15/19 08:27 100 09/15/19 07:12 74 18 100 Mechanical Ventilator 30 79 18 30 09/15/19 06:11 145/70 09/15/19 05:01 74 18 30 09/15/19 04:00 98.4 78 18 145/70 (95) 100 09/15/19 04:00 30 09/15/19 04:00 Mechanical Ventilator Mechanical Ventilator Mechanical Ventilator Mechanical Ventilator 09/15/19 04:00 83 09/15/19 03:08 88 18 100 Mechanical Ventilator 30 85 18 30 09/15/19 00:55 80 18 30 09/15/19 00:28 154/88 09/15/19 00:00 89 09/15/19 00:00 98.6 86 18 154/88 (110) 99 09/15/19 00:00 Mechanical Ventilator Mechanical Ventilator Mechanical Ventilator Mechanical Ventilator 09/14/19 22:50 79 18 100 Mechanical Ventilator 30 82 18 30 09/14/19 21:03 71 19 30 09/14/19 20:00 97.8 76 18 152/77 (102) 99 09/14/19 20:00 30 09/14/19 20:00 Mechanical Ventilator Mechanical Ventilator Mechanical Ventilator Mechanical Ventilator 09/14/19 20:00 70 09/14/19 19:34 68 18 100 Mechanical Ventilator 30 68 18 30 09/14/19 17:15 155/77 09/14/19 17:14 64 155/77 09/14/19 17:01 64 18 30 09/14/19 16:00 Mechanical Ventilator Mechanical Ventilator Mechanical Ventilator Mechanical Ventilator 09/14/19 16:00 96.1 64 19 155/77 (103) 100 09/14/19 16:00 30 09/14/19 15:26 61 18 100 Mechanical Ventilator 30 63 19 30 09/14/19 15:25 61 09/14/19 13:23 64 18 30 09/14/19 12:28 163/84 09/14/19 12:00 30 09/14/19 12:00 Mechanical Ventilator Mechanical Ventilator Mechanical Ventilator Mechanical Ventilator 09/14/19 12:00 96.1 73 18 163/84 (110) 100 09/14/19 11:42 72 18 30 09/14/19 11:36 73 Labs: Labs Test 09/14/19 05:35 White Blood Count 7.8 K/UL (4.8-10.8) Red Blood Count 3.97 M/UL (4.20-5.40) Hemoglobin 11.7 G/DL (12.0-16.0) Hematocrit 35.4 % (37.0-47.0) Mean Corpuscular Volume 89 FL (80-99) Mean Corpuscular Hemoglobin 29.6 PG (27.0-31.0) Mean Corpuscular Hemoglobin Concent 33.2 G/DL (32.0-36.0) Red Cell Distribution Width 15.0 % (11.6-14.8) Platelet Count 473 K/UL (150-450) Mean Platelet Volume 5.0 FL (6.5-10.1) Neutrophils (%) (Auto) 64.7 % (45.0-75.0) Lymphocytes (%) (Auto) 28.7 % (20.0-45.0) Monocytes (%) (Auto) 4.7 % (1.0-10.0) Eosinophils (%) (Auto) 1.0 % (0.0-3.0) Basophils (%) (Auto) 0.9 % (0.0-2.0) Sodium Level 146 MMOL/L (136-145) Potassium Level 4.6 MMOL/L (3.5-5.1) Chloride Level 105 MMOL/L (98-107) Carbon Dioxide Level 24 MMOL/L (21-32) Anion Gap 17 mmol/L (5-15) Blood Urea Nitrogen 52 mg/dL (7-18) Creatinine 2.8 MG/DL (0.55-1.30) Estimat Glomerular Filtration Rate 16.3 mL/min (>60) Glucose Level 112 MG/DL (74-106) Calcium Level 9.9 MG/DL (8.5-10.1) Phosphorus Level 3.4 MG/DL (2.5-4.9) Magnesium Level 2.4 MG/DL (1.8-2.4) Total Bilirubin 0.6 MG/DL (0.2-1.0) Aspartate Amino Transf (AST/SGOT) 109 U/L (15-37) Alanine Aminotransferase (ALT/SGPT) 42 U/L (12-78) Alkaline Phosphatase 194 U/L (46-116) C-Reactive Protein, Quantitative 13.1 mg/dL (0.00-0.90) Pro-B-Type Natriuretic Peptide > 41510 pg/mL (0-125) Total Protein 7.6 G/DL (6.4-8.2) Albumin 2.7 G/DL (3.4-5.0) Globulin 4.9 g/dL Albumin/Globulin Ratio 0.6 (1.0-2.7) Objective: WDWN NAD trach in place reduced breath sounds left greater right; no rhonchi [id number] without MRG NABS nontender no HSM no CCE contractures feeding tube in place no distention reduced LOC and weak nonfocal cachectic reviewed and edited Accucheck: 122 Malcolm Cruz MD Sep 15, 2019 08:59
[2019-09-15 12:05] VITALS: BP 157/73
--- NOTE | 2019-09-15 13:24 | Infectious Diseases Prog Note ---
Assessment/Plan Assessment/Plan A; 1. Hailee sepsis treated 2. Klebsiella sepsis , treated 3. Right shoulder septic arthritis, status post surgery. 4. Diabetes. 5. Hypertension. 6. Anemia 7. Thrombocytopenia improving 9. Atelectasis , left lung collapse 10. Pleural effusion, hemothorax 11. Ulcerative esophagitis PLAN: 1. Observe off antibiotic Subjective ROS Limited/Unobtainable: Yes Constitutional: Denies: fever Allergies: Coded Allergies: VANCOMYCIN (Unverified Allergy, Unknown, 08/02/19) Objective Vital Signs Last 24 Hour Vital Signs Date Time Temp Pulse Resp B/P (MAP) Pulse Ox O2 Delivery O2 Flow Rate FiO2 09/15/19 12:22 157/73 09/15/19 12:10 75 18 30 09/15/19 12:05 30 09/15/19 12:05 98.4 76 18 157/73 (101) 100 09/15/19 12:00 Mechanical Ventilator Mechanical Ventilator Mechanical Ventilator Mechanical Ventilator 09/15/19 12:00 71 09/15/19 10:22 78 18 100 Mechanical Ventilator 30 80 18 30 09/15/19 10:04 92 148/75 09/15/19 08:32 92 20 30 09/15/19 08:27 100 09/15/19 08:00 99.0 72 18 148/75 (99) 94 09/15/19 08:00 30 09/15/19 08:00 Mechanical Ventilator Mechanical Ventilator Mechanical Ventilator Mechanical Ventilator 09/15/19 08:00 72 09/15/19 07:12 74 18 100 Mechanical Ventilator 30 79 18 30 09/15/19 06:11 145/70 09/15/19 05:01 74 18 30 09/15/19 04:00 98.4 78 18 145/70 (95) 100 09/15/19 04:00 30 09/15/19 04:00 Mechanical Ventilator Mechanical Ventilator Mechanical Ventilator Mechanical Ventilator 09/15/19 04:00 83 09/15/19 03:08 88 18 100 Mechanical Ventilator 30 85 18 30 09/15/19 00:55 80 18 30 09/15/19 00:28 154/88 09/15/19 00:00 89 09/15/19 00:00 98.6 86 18 154/88 (110) 99 09/15/19 00:00 Mechanical Ventilator Mechanical Ventilator Mechanical Ventilator Mechanical Ventilator 09/14/19 22:50 79 18 100 Mechanical Ventilator 30 82 18 30 09/14/19 21:03 71 19 30 09/14/19 20:00 97.8 76 18 152/77 (102) 99 09/14/19 20:00 30 09/14/19 20:00 Mechanical Ventilator Mechanical Ventilator Mechanical Ventilator Mechanical Ventilator 09/14/19 20:00 70 09/14/19 19:34 68 18 100 Mechanical Ventilator 30 68 18 30 09/14/19 17:15 155/77 09/14/19 17:14 64 155/77 09/14/19 17:01 64 18 30 09/14/19 16:00 Mechanical Ventilator Mechanical Ventilator Mechanical Ventilator Mechanical Ventilator 09/14/19 16:00 96.1 64 19 155/77 (103) 100 09/14/19 16:00 30 09/14/19 15:26 61 18 100 Mechanical Ventilator 30 63 19 30 09/14/19 15:25 61 09/14/19 13:23 64 18 30 Height (Feet): 5 Height (Inches): 4.00 Weight (Pounds): 112 HEENT: status post trach Respiratory/Chest: lungs clear, other - on ventilator Cardiovascular: normal rate Abdomen: soft, non tender, other - GT feeding Extremities: no edema Neurologic/Psychiatric: aphasia Current Medications Medications (Trade) Dose Ordered Sig/Javier Route PRN Reason Start Time Stop Time Status Last Admin Dose Admin Acetaminophen (Tylenol) 650 mg Q4H PRN GT Mild Pain/Temp > 100.5 09/03/19 07:00 10/03/19 06:59 09/09/19 06:13 Acetylcysteine (Mucomyst) 100 mg Q4HRT N 08/31/19 19:00 11/29/19 18:59 09/15/19 10:19 Albuterol/ Ipratropium (Albuterol/ Ipratropium) 3 ml Q4HRT N 09/11/19 11:00 09/16/19 10:59 09/15/19 10:19 Amlodipine Besylate (Norvasc) 5 mg BID NG 08/23/19 01:45 09/22/19 01:44 09/15/19 10:04 Dextrose (Dextrose 50%) 25 ml Q30M PRN IV Hypoglycemia 09/02/19 06:15 12/01/19 06:14 09/04/19 12:11 Dextrose (Dextrose 50%) 50 ml Q30M PRN IV Hypoglycemia 09/02/19 06:15 12/01/19 06:14 Hydralazine HCl (Apresoline) 10 mg Q4H PRN IV For High Blood Pressure 08/18/19 12:44 09/17/19 12:43 09/01/19 20:27 Hydralazine HCl (Apresoline) 25 mg Q6HR NG 08/23/19 06:00 09/22/19 05:59 09/15/19 12:22 Lansoprazole (Prevacid) 30 mg BID GT 08/19/19 09:00 09/18/19 08:59 09/15/19 10:04 Levothyroxine Sodium (Synthroid) 100 mcg DAILY@0630 ORAL 09/14/19 06:30 09/24/19 06:29 09/15/19 06:11 Warren Parks MD Sep 15, 2019 13:24
--- NOTE | 2019-09-15 14:02 | Surgery Progress Note ---
Surgery Progress Note Subjective Procedure Performed 1. tracheostomy 2 removal of left tube thoracostomy Additional Comments no acute events Objective Last 24 Hour Vital Signs Date Time Temp Pulse Resp B/P (MAP) Pulse Ox O2 Delivery O2 Flow Rate FiO2 09/15/19 12:22 157/73 09/15/19 12:10 75 18 30 09/15/19 12:05 30 09/15/19 12:05 98.4 76 18 157/73 (101) 100 09/15/19 12:00 Mechanical Ventilator Mechanical Ventilator Mechanical Ventilator Mechanical Ventilator 09/15/19 12:00 71 09/15/19 10:22 78 18 100 Mechanical Ventilator 30 80 18 30 09/15/19 10:04 92 148/75 09/15/19 08:32 92 20 30 09/15/19 08:27 100 09/15/19 08:00 99.0 72 18 148/75 (99) 94 09/15/19 08:00 30 09/15/19 08:00 Mechanical Ventilator Mechanical Ventilator Mechanical Ventilator Mechanical Ventilator 09/15/19 08:00 72 09/15/19 07:12 74 18 100 Mechanical Ventilator 30 79 18 30 09/15/19 06:11 145/70 09/15/19 05:01 74 18 30 09/15/19 04:00 98.4 78 18 145/70 (95) 100 09/15/19 04:00 30 09/15/19 04:00 Mechanical Ventilator Mechanical Ventilator Mechanical Ventilator Mechanical Ventilator 09/15/19 04:00 83 09/15/19 03:08 88 18 100 Mechanical Ventilator 30 85 18 30 09/15/19 00:55 80 18 30 09/15/19 00:28 154/88 09/15/19 00:00 89 09/15/19 00:00 98.6 86 18 154/88 (110) 99 09/15/19 00:00 Mechanical Ventilator Mechanical Ventilator Mechanical Ventilator Mechanical Ventilator 09/14/19 22:50 79 18 100 Mechanical Ventilator 30 82 18 30 09/14/19 21:03 71 19 30 09/14/19 20:00 97.8 76 18 152/77 (102) 99 09/14/19 20:00 30 09/14/19 20:00 Mechanical Ventilator Mechanical Ventilator Mechanical Ventilator Mechanical Ventilator 09/14/19 20:00 70 09/14/19 19:34 68 18 100 Mechanical Ventilator 30 68 18 30 09/14/19 17:15 155/77 09/14/19 17:14 64 155/77 09/14/19 17:01 64 18 30 09/14/19 16:00 Mechanical Ventilator Mechanical Ventilator Mechanical Ventilator Mechanical Ventilator 09/14/19 16:00 96.1 64 19 155/77 (103) 100 09/14/19 16:00 30 09/14/19 15:26 61 18 100 Mechanical Ventilator 30 63 19 30 09/14/19 15:25 61 I&O Intake and Output 09/14/19 09/15/19 19:00 07:00 Intake Total 520 ml 450 ml Output Total 150 ml 250 ml Balance 370 ml 200 ml Intake Free Water 50 ml 100 ml Tube Feeding 420 ml 350 ml Other 50 ml Output Urine Total 150 ml 250 ml # Bowel Movements 2 2 Dressing: saturated Wound: other Drains: other Cardiovascular: RSR Respiratory: decreased breath sounds Abdomen: soft, non-tender, present bowel sounds Extremities: no edema, no tenderness, no cyanosis Assessment Post-op Diagnosis same Plan Problems: (1) Malnutrition Assessment & Plan: DAILY ESTIMATED NEEDS: Needs based on ESRD+ HD, underweight, wound/ 39.5kg 35-40 kcals/kg 8202-4645 total kcals 1.25-1.8 g protein/kg 49-71 g total protein 20-22 mL/kg 790-869 total fluid mLs NUTRITION DIAGNOSIS: * Increased kcal and protein needs r/t underweight status, HD needs, wuond healing as evidenced by pt is underweight per guidelines, ESRD, on HD, admitted non-blanching erythema wounds @ BL heels and sacrum * Swallowing difficulty R/T dysphagia as evidenced by WHAT JOB TITLES MEAN recommends temporary nonoral feeding at this time, s/p NGT insertion, on NGT feeding-> now s/p self removal, NPO. CURRENT TF:NPO PO DIET RECOMMENDATIONS: WHEN SAFE FOR ORAL DIET -> renal/ texture per WHAT JOB TITLES MEAN ENTERAL NUTRITION RECOMMENDATIONS: W/ GI access: Nepro @ 35ml/hr x 22 hrs to provide 770ml, 1386kcal, 62g prot, 560ml free water * W/ GI access, resume TF on Nepro * Initiate Nepro @ 15ml/hr x 6 hrs, advance 10ml q 4-6 hrs as tolerated to goal rate. * Hold 1 hour before and after Synthroid med * HOB over 30 degrees/ water flush per MD. ADDITIONAL RECOMMENDATIONS: 1) Calibrated bed scale wt for accurate CBW -> daily wt monitoring Per HD record: dry wt on 07/30=39.5kg (87lbs) 2) Wound care: (W/ GI access) add Nephorivte x 1 + Balta BID 3) Monitor NPO status: without GI access at this time, s/p pulling out NGT 4) Monitor for hypoglycemia while NPO 5) Monitor for continuity of HD (2) Septic arthritis Assessment & Plan: Pt presented on admission with generalized scaly rash . pt noted to be restless and scratching at skin. Bleeding from oral mucosa noted. Joint deformity noted to R shoulder. Surgical incision approximated with 11 sutures. Erythema but no exudate,or elevation in skin temp at site of incision. Historical incision R hip that is tunneled.Small amt seropurulent exudate noted. Periwound is erythematous,but no elevation in skin temp noted. No odor noted. Non-blanching erythema noted to sacrum. Perianal area is erythematous and excoriated. L heel is boggy with non-blanching erythema. R heel is soft with non-blanching erythema. No evidence of skin breakdown to all other bony prominences. Tx.plan: Cover R shoulder with Drsg and change daily and prn. Cleanse R hip wound with Saline. Apply Therahoney.Apply Cavilon Skin Barrier periwound. Cover with Optifoam drsg. Change every 3 days and prn. Apply Moisture Barrier Paste to perianal area and buttocks. Cover Sacrum with Optifoam drsg. Change every 3 days and prn. Apply Cavilon Skin Barrier to both heels. Cover each heel with Optifoam drsg. Change every 7 days and prn. APM/ELVIA Mattress overlay. Reposition at least every 2hours or as tolerated. Off-load heels with pillow. HD cath necessary HD as renal likely will need intubation (3) Wound, open, hip or thigh with complication Assessment & Plan: slow healing will need nutritional optimization difficult ng tube peg when stable sutures removed from right shoulder comfortable wean vent may need trach (4) Abscess of right hip (5) possible septic arthritis (6) Renal failure (ARF), acute on chronic Assessment & Plan: cont HD will need tunneled cath placement okay to use fem line for now but will need change soon. line monitored and clean dressings going well (7) Pneumonia Assessment & Plan: intubated on vent support not tolerating weaning may need trach hemothorax likely after thoracentesis Chest CT noted Left chest tube placed With plan for trach chest tube can be considered but overall prognosis is very poor s/p trach left chest tub eout cxr noted and okay downgrade left pleural effusion dressings saturated will need to monitor. may need another chest tube as may not heal well on left side Camilo James Sep 15, 2019 14:02
--- NOTE | 2019-09-15 14:26 | Nephrology Progress Note ---
Assessment/Plan Problem List: (1) ESRD (end stage renal disease) on dialysis (2) Malnutrition (3) Anemia in CKD (chronic kidney disease) (4) Hypotension (5) Thrombocytopenia (6) Sepsis Assessment: klebsiella in blood Assessment -Early sepsis with shock. -Healthcare-associated pneumonia. -Severe protein-calorie malnutrition. -Thrombocytopenia. - End-stage renal disease. - History of hypertension. - Bradycardia. - HypoThyroid Plan Tracheostomy September 07 Last dialysis September 12, next dialysis as needed Chest tube on the left side was put in on September 01 was discontinued September 07 Patient transfused 3 units of packed RBCs for low hemoglobin Remains full code Blood pressure fluctuating, will start hydralazine via NG tube for blood pressure Magnesium and potassium supplement intravenously as needed Patient underwent PEG placement August 16 patient remains intubated on ventilator Discussed with RN Aim to wean from ventilator or consider tracheostomy Permacath was removed on August 12 Dialysis 08/11 Transfusion as needed Patient had hematemesis meds IV as possible Surveillance blood cultures tomorrow Plan to put the permacath back in on Thursday if cultures are negative keep BP and BS in check Inflammatory markers per orders Subjective ROS Limited/Unobtainable: Yes Objective Objective Last 24 Hour Vital Signs Date Time Temp Pulse Resp B/P (MAP) Pulse Ox O2 Delivery O2 Flow Rate FiO2 09/15/19 12:22 157/73 09/15/19 12:10 75 18 30 09/15/19 12:05 30 09/15/19 12:05 98.4 76 18 157/73 (101) 100 09/15/19 12:00 Mechanical Ventilator Mechanical Ventilator Mechanical Ventilator Mechanical Ventilator 09/15/19 12:00 71 09/15/19 10:22 78 18 100 Mechanical Ventilator 30 80 18 30 09/15/19 10:04 92 148/75 09/15/19 08:32 92 20 30 09/15/19 08:27 100 09/15/19 08:00 99.0 72 18 148/75 (99) 94 09/15/19 08:00 30 09/15/19 08:00 Mechanical Ventilator Mechanical Ventilator Mechanical Ventilator Mechanical Ventilator 09/15/19 08:00 72 09/15/19 07:12 74 18 100 Mechanical Ventilator 30 79 18 30 09/15/19 06:11 145/70 09/15/19 05:01 74 18 30 09/15/19 04:00 98.4 78 18 145/70 (95) 100 09/15/19 04:00 30 09/15/19 04:00 Mechanical Ventilator Mechanical Ventilator Mechanical Ventilator Mechanical Ventilator 09/15/19 04:00 83 09/15/19 03:08 88 18 100 Mechanical Ventilator 30 85 18 30 09/15/19 00:55 80 18 30 09/15/19 00:28 154/88 09/15/19 00:00 89 09/15/19 00:00 98.6 86 18 154/88 (110) 99 09/15/19 00:00 Mechanical Ventilator Mechanical Ventilator Mechanical Ventilator Mechanical Ventilator 09/14/19 22:50 79 18 100 Mechanical Ventilator 30 82 18 30 09/14/19 21:03 71 19 30 09/14/19 20:00 97.8 76 18 152/77 (102) 99 09/14/19 20:00 30 09/14/19 20:00 Mechanical Ventilator Mechanical Ventilator Mechanical Ventilator Mechanical Ventilator 09/14/19 20:00 70 09/14/19 19:34 68 18 100 Mechanical Ventilator 30 68 18 30 09/14/19 17:15 155/77 09/14/19 17:14 64 155/77 09/14/19 17:01 64 18 30 09/14/19 16:00 Mechanical Ventilator Mechanical Ventilator Mechanical Ventilator Mechanical Ventilator 09/14/19 16:00 96.1 64 19 155/77 (103) 100 09/14/19 16:00 30 09/14/19 15:26 61 18 100 Mechanical Ventilator 30 63 19 30 09/14/19 15:25 61 Intake and Output 09/14/19 09/15/19 19:00 07:00 Intake Total 520 ml 450 ml Output Total 150 ml 250 ml Balance 370 ml 200 ml Intake Free Water 50 ml 100 ml Tube Feeding 420 ml 350 ml Other 50 ml Output Urine Total 150 ml 250 ml # Bowel Movements 2 2 No labs done today Height (Feet): 5 Height (Inches): 4.00 Weight (Pounds): 112 General Appearance: no apparent distress EENT: other - Trached and vented Cardiovascular: normal rate Respiratory/Chest: decreased breath sounds Abdomen: soft Objective no change William Blackwood MD Sep 15, 2019 14:26
[2019-09-15] MEDS ORDERED: NS 275ml ONE (14:58)
[2019-09-15] MEDS ORDERED: Tubing IV Secondary IV ONE (14:58)
[2019-09-15 16:00] VITALS: BP 145/67
[2019-09-15 20:00] VITALS: BP 140/70
--- NOTE | 2019-09-15 21:20 | General Progress Note ---
Assessment/Plan Status: stable, not improved, unchanged, deteriorating Assessment/Plan: Assessment - Severe ulcerative esophagitis - Resp failure - s/p recent Chest tube - thrombocytopenia --> resolved - Renal failure - aspiration risk --> s/p PEG - anemia - mild elevation in alk phos - now rising levels - bradycardia - Poor prognosis Recommendations - GT care - water flushes - elevate HOB - monitor H&H - follow LFT - follow hepatitis panel - Check CPK - vent Subjective Allergies: Coded Allergies: VANCOMYCIN (Unverified Allergy, Unknown, 08/02/19) Subjective Above noted No events overnight LFT slightly higher Objective Last 24 Hour Vital Signs Date Time Temp Pulse Resp B/P (MAP) Pulse Ox O2 Delivery O2 Flow Rate FiO2 09/15/19 20:33 76 18 30 09/15/19 20:00 30 09/15/19 20:00 Mechanical Ventilator Mechanical Ventilator Mechanical Ventilator Mechanical Ventilator 09/15/19 19:02 79 18 100 Mechanical Ventilator 30 83 18 30 09/15/19 18:14 84 145/67 09/15/19 18:14 145/67 09/15/19 17:07 84 21 30 09/15/19 16:00 30 09/15/19 16:00 73 09/15/19 16:00 Mechanical Ventilator Mechanical Ventilator Mechanical Ventilator Mechanical Ventilator 09/15/19 16:00 98.9 76 18 145/67 (93) 99 09/15/19 15:29 72 18 100 Mechanical Ventilator 30 80 18 30 09/15/19 12:22 157/73 09/15/19 12:10 75 18 30 09/15/19 12:05 30 09/15/19 12:05 98.4 76 18 157/73 (101) 100 09/15/19 12:00 Mechanical Ventilator Mechanical Ventilator Mechanical Ventilator Mechanical Ventilator 09/15/19 12:00 71 09/15/19 10:22 78 18 100 Mechanical Ventilator 30 80 18 30 09/15/19 10:04 92 148/75 09/15/19 08:32 92 20 30 09/15/19 08:27 100 09/15/19 08:00 99.0 72 18 148/75 (99) 94 09/15/19 08:00 30 09/15/19 08:00 Mechanical Ventilator Mechanical Ventilator Mechanical Ventilator Mechanical Ventilator 09/15/19 08:00 72 4/2/20 07:12 74 18 100 Mechanical Ventilator 30 79 18 30 09/15/19 06:11 145/70 09/15/19 05:01 74 18 30 09/15/19 04:00 98.4 78 18 145/70 (95) 100 09/15/19 04:00 30 09/15/19 04:00 Mechanical Ventilator Mechanical Ventilator Mechanical Ventilator Mechanical Ventilator 09/15/19 04:00 83 09/15/19 03:08 88 18 100 Mechanical Ventilator 30 85 18 30 09/15/19 00:55 80 18 30 09/15/19 00:28 154/88 09/15/19 00:00 89 09/15/19 00:00 98.6 86 18 154/88 (110) 99 09/15/19 00:00 Mechanical Ventilator Mechanical Ventilator Mechanical Ventilator Mechanical Ventilator 09/14/19 22:50 79 18 100 Mechanical Ventilator 30 82 18 30 Intake and Output 09/14/19 09/15/19 19:00 07:00 Intake Total 520 ml 450 ml Output Total 150 ml 250 ml Balance 370 ml 200 ml Intake Free Water 50 ml 100 ml Tube Feeding 420 ml 350 ml Other 50 ml Output Urine Total 150 ml 250 ml # Bowel Movements 2 2 Laboratory Tests 09/15/19 17:30: Hepatitis B Surface Antigen [Pending], Hepatitis B Surface Antibody, Quant [ Pending], Hepatitis C Antibody [Pending] Height (Feet): 5 Height (Inches): 4.00 Weight (Pounds): 112 Objective Debilitated frail woman NCAT (+) on vent supple, (+) trach scattered ronchi RR abd soft ND NT, (+) GT no edema Cristy Elizondo MD Sep 15, 2019 21:20
[2019-09-16] VITALS: BP 119/80
--- NOTE | 2019-09-16 00:15 | Progress Note ---
DATE: 09/15/2019 CARDIOLOGY PROGRESS NOTE SUBJECTIVE: The patient remains on ventilator support. Tracking with her eyes. Tolerating feedings with no residuals. Monitored rhythm, sinus. Rare atrial ectopy. Blood pressure well controlled. No bradycardic episodes. OBJECTIVE: VITAL SIGNS: Blood pressure 145/70, heart rate 78, respiratory rate 18, and afebrile. LUNGS: Bilateral breath sounds. Trach site with thin secretions. CARDIAC: Regular rhythm and rate. Normal S1 and S2. ABDOMEN: Soft. GJ tube intact. EXTREMITIES: No edema. IMPRESSION: 1. Respiratory failure, status post trach. 2. Hemothorax, status post chest tube, now removed. 3. Sinus bradycardia, resolved with correction of hypothyroid state. 4. Hypertensive heart disease with controlled blood pressure. 5. Acute on chronic diastolic congestive heart failure. 6. End-stage renal disease, on hemodialysis. PLAN: 1. Plan of care reviewed and updated. 2. Discharge options discussed with casey saw operator. 3. Current medication regimen reviewed and updated. Abel Stubbs M.D. DR: ARETHA JOB#: [id number] CC:
[2019-09-16] MEDS: HydrALAZINE 25mg tab NG SCH ×5 (00:40→23:23)
[2019-09-16] MEDS: Albuterol/Ipratropium 3ml neb HHN SCH ×2 (03:18→08:25)
[2019-09-16 04:00] VITALS: BP 155/82
--- NOTE | 2019-09-16 06:46 | General Progress Note ---
Assessment/Plan Problem List: (1) Hypothyroid ICD Codes: E03.9 - Hypothyroidism, unspecified SNOMED: 83915211 (2) ESRD (end stage renal disease) on dialysis ICD Codes: N18.6 - End stage renal disease; Z99.2 - Dependence on renal dialysis SNOMED: 018766775 (3) Hypotension ICD Codes: I95.9 - Hypotension, unspecified SNOMED: 15467790 Qualifiers: Qualified Codes: I95.3 - Hypotension of hemodialysis (4) Pneumonia ICD Codes: J18.9 - Pneumonia, unspecified organism SNOMED: 795498133 Qualifiers: Qualified Codes: J18.9 - Pneumonia, unspecified organism (5) Diabetes mellitus ICD Codes: E11.9 - Type 2 diabetes mellitus without complications SNOMED: 15380270 Status: stable, not improved, unchanged, deteriorating Assessment/Plan: TSH normalized - he was treated with Levothyroxine IV 50 mcg for couple of weeks - continue Levothyroxine tablet dose to 100 mcg daily - repeat TSH, free 4 in one week continue glucose monitoring without insulin coverage hypoglycemia protocol in order Subjective ROS Limited/Unobtainable: Yes Allergies: Coded Allergies: VANCOMYCIN (Unverified Allergy, Unknown, 08/02/19) Subjective events noted interval notes reviewed glucose values are stable without hypoglycemia Item Value Date Time Bedside Blood Glucose 113 mg/dl 09/16/19 0557 Bedside Blood Glucose 96 mg/dl 09/16/19 0000 Bedside Blood Glucose 112 mg/dl 09/15/19 1800 Bedside Blood Glucose 108 mg/dl 09/15/19 1200 Objective Last 24 Hour Vital Signs Date Time Temp Pulse Resp B/P (MAP) Pulse Ox O2 Delivery O2 Flow Rate FiO2 09/16/19 05:27 119/80 09/16/19 04:41 79 18 30 09/16/19 04:00 97.3 76 18 155/82 (106) 97 09/16/19 04:00 30 09/16/19 04:00 Mechanical Ventilator Mechanical Ventilator Mechanical Ventilator Mechanical Ventilator 09/16/19 04:00 76 09/16/19 03:18 76 18 100 Mechanical Ventilator 30 78 18 30 09/16/19 01:16 83 18 30 09/16/19 01:11 83 18 100 Mechanical Ventilator 40 09/16/19 00:40 119/80 09/16/19 00:00 30 09/16/19 00:00 Mechanical Ventilator Mechanical Ventilator Mechanical Ventilator Mechanical Ventilator 09/16/19 00:00 97.7 80 18 119/80 (93) 100 09/15/19 23:25 81 18 100 Mechanical Ventilator 30 84 18 30 09/15/19 20:33 76 18 30 09/15/19 20:00 30 09/15/19 20:00 74 09/15/19 20:00 97.9 73 18 140/70 (93) 99 09/15/19 20:00 Mechanical Ventilator Mechanical Ventilator Mechanical Ventilator Mechanical Ventilator 09/15/19 19:02 79 18 100 Mechanical Ventilator 30 83 18 30 09/15/19 18:14 84 145/67 09/15/19 18:14 145/67 09/15/19 17:07 84 21 30 09/15/19 16:00 30 09/15/19 16:00 73 09/15/19 16:00 Mechanical Ventilator Mechanical Ventilator Mechanical Ventilator Mechanical Ventilator 09/15/19 16:00 98.9 76 18 145/67 (93) 99 09/15/19 15:29 72 18 100 Mechanical Ventilator 30 80 18 30 09/15/19 12:22 157/73 09/15/19 12:10 75 18 30 09/15/19 12:05 30 09/15/19 12:05 98.4 76 18 157/73 (101) 100 09/15/19 12:00 Mechanical Ventilator Mechanical Ventilator Mechanical Ventilator Mechanical Ventilator 09/15/19 12:00 71 09/15/19 10:22 78 18 100 Mechanical Ventilator 30 80 18 30 09/15/19 10:04 92 148/75 09/15/19 08:32 92 20 30 09/15/19 08:27 100 09/15/19 08:00 99.0 72 18 148/75 (99) 94 09/15/19 08:00 30 09/15/19 08:00 Mechanical Ventilator Mechanical Ventilator Mechanical Ventilator Mechanical Ventilator 09/15/19 08:00 72 09/15/19 07:12 74 18 100 Mechanical Ventilator 30 79 18 30 Intake and Output 09/15/19 09/16/19 19:00 07:00 Intake Total 860 ml 485 ml Output Total 300 ml 250 ml Balance 560 ml 235 ml Intake Free Water 200 ml 100 ml Tube Feeding 420 ml 385 ml Other 240 ml Output Urine Total 300 ml 250 ml # Bowel Movements 1 1 Laboratory Tests 09/15/19 17:30: Hepatitis B Surface Antigen [Pending], Hepatitis B Surface Antibody, Quant [ Pending], Hepatitis C Antibody [Pending] Height (Feet): 5 Height (Inches): 4.00 Weight (Pounds): 112 General Appearance: no apparent distress Neck: non-tender Cardiovascular: normal rate Respiratory/Chest: lungs clear Abdomen: normal bowel sounds Objective Current Medications Medications (Trade) Dose Ordered Sig/Javier Route PRN Reason Start Time Stop Time Status Last Admin Dose Admin Acetaminophen (Tylenol) 650 mg Q4H PRN GT Mild Pain/Temp > 100.5 09/03/19 07:00 10/03/19 06:59 09/09/19 06:13 Acetylcysteine (Mucomyst) 100 mg Q4HRT N 08/31/19 19:00 11/29/19 18:59 09/16/19 03:18 Albuterol/ Ipratropium (Albuterol/ Ipratropium) 3 ml Q4HRT [facility] 09/11/19 11:00 09/16/19 10:59 09/16/19 03:18 Amlodipine Besylate (Norvasc) 5 mg BID NG 08/23/19 01:45 09/22/19 01:44 09/15/19 18:14 Dextrose (Dextrose 50%) 25 ml Q30M PRN IV Hypoglycemia 09/02/19 06:15 12/01/19 06:14 09/04/19 12:11 Dextrose (Dextrose 50%) 50 ml Q30M PRN IV Hypoglycemia 09/02/19 06:15 12/01/19 06:14 Hydralazine HCl (Apresoline) 10 mg Q4H PRN IV For High Blood Pressure 08/18/19 12:44 09/17/19 12:43 09/01/19 20:27 Hydralazine HCl (Apresoline) 25 mg Q6HR NG 08/23/19 06:00 09/22/19 05:59 09/16/19 05:27 Lansoprazole (Prevacid) 30 mg BID GT 08/19/19 09:00 09/18/19 08:59 09/15/19 18:12 Levothyroxine Sodium (Synthroid) 100 mcg DAILY@0630 ORAL 09/14/19 06:30 09/24/19 06:29 09/16/19 05:27 Antonio Jacome MD Sep 16, 2019 06:46
[2019-09-16 08:00] VITALS: BP 142/73
[2019-09-16 08:13] LABS: ALANINE AMINOTRANSFERASE 30 U/L (12-78); ALBUMIN/GLOBULIN RATIO 0.4 (1.0-2.7); ALKALINE PHOSPHATASE 150 U/L (46-116); ANION GAP 13 mmol/L (5-15); ASPARTATE AMINO TRANSFERASE 66 U/L (15-37); BILIRUBIN,TOTAL 0.5 MG/DL (0.2-1.0); BLOOD UREA NITROGEN 67 mg/dL (7-18); CALCIUM 8.9 MG/DL (8.5-10.1); CARBON DIOXIDE 25 MMOL/L (21-32); CHLORIDE 106 MMOL/L (98-107); CREATININE 3.5 MG/DL (0.55-1.30); POTASSIUM 3.6 MMOL/L (3.5-5.1); SODIUM 144 MMOL/L (136-145)
--- NOTE | 2019-09-16 08:40 | General Progress Note ---
Assessment/Plan Problem List: (1) Failure to thrive (0-17) ICD Codes: R62.51 - Failure to thrive (0-17) SNOMED: 999351286 (2) Hypertensive kidney disease ICD Codes: I12.9 - Hypertensive chronic kidney disease with stage 1 through stage 4 chronic kidney disease, or unspecified chronic kidney disease SNOMED: 22478843 (3) Pneumonia ICD Codes: J18.9 - Pneumonia, unspecified organism SNOMED: 267142412 Qualifiers: Qualified Codes: J18.9 - Pneumonia, unspecified organism (4) ESRD (end stage renal disease) ICD Codes: N18.6 - End stage renal disease SNOMED: 09081264 (5) Septic arthritis ICD Codes: M00.9 - Pyogenic arthritis, unspecified SNOMED: 371056439 (6) Thrombocytopenia ICD Codes: D69.6 - Thrombocytopenia, unspecified SNOMED: 315780726 (7) Hypotension ICD Codes: I95.9 - Hypotension, unspecified SNOMED: 95210760 Qualifiers: Qualified Codes: I95.3 - Hypotension of hemodialysis (8) Malnutrition ICD Codes: E46 - Unspecified protein-calorie malnutrition SNOMED: 77548546 Status: stable, not improved, unchanged, deteriorating Assessment/Plan: Continue vent support. Wean as able. Suctioning and pulmonary toilet. Continue G-tube feedings. Monitor residuals Continue current blood pressure regimen with close monitoring of blood pressure. Hemodialysis with ultrafiltration per nephrology. Turn every 2 hours and good skin care. Discharge planning in progress Subjective ROS Limited/Unobtainable: Yes Constitutional: Reports: malaise, weakness HEENT: Reports: no symptoms Cardiovascular: Reports: no symptoms Respiratory: Reports: no symptoms Gastrointestinal/Abdominal: Reports: difficulty swallowing Genitourinary: Reports: no symptoms Neurologic/Psychiatric: Reports: pre-existing deficit Endocrine: Reports: no symptoms Hematologic/Lymphatic: Reports: anemia Allergies: Coded Allergies: VANCOMYCIN (Unverified Allergy, Unknown, 08/02/19) All Systems: reviewed and negative except above Subjective No overnight events. Patient remained stable on the ventilator. She opens her eyes and does track. Patient has been tolerating feedings without any residuals. There are no fevers or chills. Labs were reviewed. Objective Last 24 Hour Vital Signs Date Time Temp Pulse Resp B/P (MAP) Pulse Ox O2 Delivery O2 Flow Rate FiO2 09/16/19 08:25 81 19 100 Mechanical Ventilator 30 84 17 30 09/16/19 05:27 119/80 09/16/19 04:41 79 18 30 09/16/19 04:00 97.3 76 18 155/82 (106) 97 09/16/19 04:00 30 09/16/19 04:00 Mechanical Ventilator Mechanical Ventilator Mechanical Ventilator Mechanical Ventilator 09/16/19 04:00 76 09/16/19 03:18 76 18 100 Mechanical Ventilator 30 78 18 30 09/16/19 01:16 83 18 30 09/16/19 01:11 83 18 100 Mechanical Ventilator 40 09/16/19 00:40 119/80 09/16/19 00:00 30 09/16/19 00:00 Mechanical Ventilator Mechanical Ventilator Mechanical Ventilator Mechanical Ventilator 09/16/19 00:00 97.7 80 18 119/80 (93) 100 09/15/19 23:25 81 18 100 Mechanical Ventilator 30 84 18 30 09/15/19 20:33 76 18 30 09/15/19 20:00 30 09/15/19 20:00 74 09/15/19 20:00 97.9 73 18 140/70 (93) 99 09/15/19 20:00 Mechanical Ventilator Mechanical Ventilator Mechanical Ventilator Mechanical Ventilator 09/15/19 19:02 79 18 100 Mechanical Ventilator 30 83 18 30 09/15/19 18:14 84 145/67 09/15/19 18:14 145/67 09/15/19 17:07 84 21 30 09/15/19 16:00 30 09/15/19 16:00 73 09/15/19 16:00 Mechanical Ventilator Mechanical Ventilator Mechanical Ventilator Mechanical Ventilator 09/15/19 16:00 98.9 76 18 145/67 (93) 99 09/15/19 15:29 72 18 100 Mechanical Ventilator 30 80 18 30 09/15/19 12:22 157/73 09/15/19 12:10 75 18 30 09/15/19 12:05 30 09/15/19 12:05 98.4 76 18 157/73 (101) 100 09/15/19 12:00 Mechanical Ventilator Mechanical Ventilator Mechanical Ventilator Mechanical Ventilator 09/15/19 12:00 71 09/15/19 10:22 78 18 100 Mechanical Ventilator 30 80 18 30 09/15/19 10:04 92 148/75 Intake and Output 09/15/19 09/16/19 19:00 07:00 Intake Total 860 ml 485 ml Output Total 300 ml 250 ml Balance 560 ml 235 ml Intake Free Water 200 ml 100 ml Tube Feeding 420 ml 385 ml Other 240 ml Output Urine Total 300 ml 250 ml # Bowel Movements 1 1 Laboratory Tests 09/15/19 17:30: Hepatitis B Surface Antigen Negative, Hepatitis B Surface Antibody, Quant 10, Hepatitis C Antibody 0.67 09/16/19 05:47: Sodium Level 144, Potassium Level 3.6, Chloride Level 106, Carbon Dioxide Level 25, Anion Gap 13, Blood Urea Nitrogen 67H, Creatinine 3.5H, Estimat Glomerular Filtration Rate 12.6, Glucose Level 91, Calcium Level 8.9, Total Bilirubin 0.5, Aspartate Amino Transf (AST/SGOT) 66H, Alanine Aminotransferase (ALT/SGPT) 30, Alkaline Phosphatase 150H, Total Creatine Kinase [Pending], Total Protein 6.6, Albumin 2.0L, Globulin 4.6, Albumin/Globulin Ratio 0.4L Height (Feet): 5 Height (Inches): 4.00 Weight (Pounds): 112 Objective General Appearance: WD/WN, awake. looks around. no distress. thin and frail Neck: supple +trach Cardiovascular: normal rate Respiratory/Chest: rhonchi - bilaterally Abdomen: normal bowel sounds, non tender, soft, no organomegaly Edema: no edema noted Arm (L), no edema noted Arm (R), no edema noted Leg (L), no edema noted Leg (R), no edema noted Pedal (L), no edema noted Pedal (R), no edema noted Generalized Neurologic: disoriented, aphasia Skin: +excoriations Nate Beltran MD Sep 16, 2019 08:40
[2019-09-16 08:58] LABS: CREATINE KINASE 48 U/L (26-308)
--- NOTE | 2019-09-16 10:37 | General Progress Note ---
Assessment/Plan Status: stable, not improved, unchanged, deteriorating Assessment/Plan: Assessment - Severe ulcerative esophagitis - mild elevation in LFT, Hepatitis B/C negative - Resp failure - s/p recent Chest tube - thrombocytopenia --> resolved - Renal failure - aspiration risk --> s/p PEG - anemia - mild elevation in alk phos - now rising levels - bradycardia - Poor prognosis Recommendations - GT care - water flushes - elevate HOB - monitor H&H - follow LFT - Check CPK - normal - vent Subjective Allergies: Coded Allergies: VANCOMYCIN (Unverified Allergy, Unknown, 08/02/19) Subjective Above noted No events overnight LFT about same Objective Last 24 Hour Vital Signs Date Time Temp Pulse Resp B/P (MAP) Pulse Ox O2 Delivery O2 Flow Rate FiO2 09/16/19 09:16 76 147/73 09/16/19 08:25 81 19 100 Mechanical Ventilator 30 84 17 30 09/16/19 05:27 119/80 09/16/19 04:41 79 18 30 09/16/19 04:00 97.3 76 18 155/82 (106) 97 09/16/19 04:00 30 09/16/19 04:00 Mechanical Ventilator Mechanical Ventilator Mechanical Ventilator Mechanical Ventilator 09/16/19 04:00 76 09/16/19 03:18 76 18 100 Mechanical Ventilator 30 78 18 30 09/16/19 01:16 83 18 30 09/16/19 01:11 83 18 100 Mechanical Ventilator 40 09/16/19 00:40 119/80 09/16/19 00:00 30 09/16/19 00:00 Mechanical Ventilator Mechanical Ventilator Mechanical Ventilator Mechanical Ventilator 09/16/19 00:00 97.7 80 18 119/80 (93) 100 09/15/19 23:25 81 18 100 Mechanical Ventilator 30 84 18 30 09/15/19 20:33 76 18 30 09/15/19 20:00 30 09/15/19 20:00 74 09/15/19 20:00 97.9 73 18 140/70 (93) 99 09/15/19 20:00 Mechanical Ventilator Mechanical Ventilator Mechanical Ventilator Mechanical Ventilator 09/15/19 19:02 79 18 100 Mechanical Ventilator 30 83 18 30 09/15/19 18:14 84 145/67 09/15/19 18:14 145/67 09/15/19 17:07 84 21 30 09/15/19 16:00 30 09/15/19 16:00 73 09/15/19 16:00 Mechanical Ventilator Mechanical Ventilator Mechanical Ventilator Mechanical Ventilator 09/15/19 16:00 98.9 76 18 145/67 (93) 99 09/15/19 15:29 72 18 100 Mechanical Ventilator 30 80 18 30 09/15/19 12:22 157/73 09/15/19 12:10 75 18 30 09/15/19 12:05 30 09/15/19 12:05 98.4 76 18 157/73 (101) 100 09/15/19 12:00 Mechanical Ventilator Mechanical Ventilator Mechanical Ventilator Mechanical Ventilator 09/15/19 12:00 71 Intake and Output 09/15/19 09/16/19 19:00 07:00 Intake Total 860 ml 485 ml Output Total 300 ml 250 ml Balance 560 ml 235 ml Intake Free Water 200 ml 100 ml Tube Feeding 420 ml 385 ml Other 240 ml Output Urine Total 300 ml 250 ml # Bowel Movements 1 1 Laboratory Tests 09/15/19 17:30: Hepatitis B Surface Antigen Negative, Hepatitis B Surface Antibody, Quant 10, Hepatitis C Antibody 0.67 09/16/19 05:47: Sodium Level 144, Potassium Level 3.6, Chloride Level 106, Carbon Dioxide Level 25, Anion Gap 13, Blood Urea Nitrogen 67H, Creatinine 3.5H, Estimat Glomerular Filtration Rate 12.6, Glucose Level 91, Calcium Level 8.9, Total Bilirubin 0.5, Aspartate Amino Transf (AST/SGOT) 66H, Alanine Aminotransferase (ALT/SGPT) 30, Alkaline Phosphatase 150H, Total Creatine Kinase 48, Total Protein 6.6, Albumin 2.0L, Globulin 4.6, Albumin/Globulin Ratio 0.4L Height (Feet): 5 Height (Inches): 4.00 Weight (Pounds): 112 Objective Debilitated frail woman NCAT (+) on vent supple, (+) trach scattered ronchi RR abd soft ND NT, (+) GT no edema Cristy Elizondo MD Sep 16, 2019 10:37
--- NOTE | 2019-09-16 10:48 | Hematology/Onc Progress Note ---
Assessment/Plan Assessment/Plan # Thrombocytopenia - potential causes multifactorial, evaluate liver and viral etiologies to begin, in this case due to sepsis with septic shock also with cirrhosis and liver disease --> Hep panel and HIV ordered --> neg --> US abd to evaluate for cirrhosis and hsm ordered --> reviewed --> Peripheral smear ordered to evaluate for blasts /schistocytes --> none noted --> abx and other meds have been reviewed --> ok for ppx if plt >50k w/ either heparin or lovenox --> Transfuse if Plt < 20k and fever, or if Plt < 10k without fever --> okay for permacath change once plt better--> for 08/14 --> plt trend: 43-->83-->237k-->292-->341-->315-->388 -->444-->530-->252k-->344 # Anemia of chronic disease due to underlying chronic medical issues, multifactorial v Gi bleed --> Anemia workup has been ordered, rule out gi bleed --> No evidence of hemolysis is noted, peripheral smear has been reviewed. --> Hgb goal >7. Transfuse prn. --> Epogen has been started --> HOLD OFF IRON ferritin is >1000 --> Medications have been reviewed --> low threshold for gi evaluation in case has occult + --> hgb 9-->6.7-->9.2 -->10.5-->10.6 -->10.7-->10-->10.5-->9.8-->10.4-->9.5--> 3.6-->9.6-->9.7-->10-->10.3-->11 --> blood tx: 08/11, 08/31 --> CT Chest r/o hemothorax --> does show confirmation of a large left hemothorax. Complete atelectasis of the left lower lobe and partial left upper lobe atelectasis demonstrated. Mild rightward shift of the heart and mediastinum. # Sepsis with shock. --> abx as per id, recs noted --> pressors as needed # Healthcare-associated pneumonia. --> recs reviewed --> abx: jung/micafungin-->jung-->off --> 08/24 us chest: moderate left pleural effusion # Severe protein-calorie malnutrition. --> nutritional support # End-stage renal disease --> had as renal hd --> with permacath # History of hypertension. --> per cards, now with Bradycardia. # Resp failure s/p vent/trach # HypoThyroid # Ngt feedings # Dvt ppx scd's The timing of this note does not necessarily reflect the time of the patient was seen. Greatly appreciate consultation. Subjective Allergies: Coded Allergies: VANCOMYCIN (Unverified Allergy, Unknown, 08/02/19) Subjective 08/11: no bleeding or chills, labs reviewed, no major bleeding, plt less than 50k 08/12: icu, s/p blood, hgb improved to 9.2, 08/14: icu, pending consent for thora and permacath, labs reviewed 08/15: new permacath placed, no bleeding, for hd, plt much improved, started lovenox sq 08/16: ett to be adjusted, bp on high end, micafungin started, possible bronch 08/17: weaning as per pulm, no events otherwise, labs noted 08/18: no events no bleeding, remains confused on vent, for hd 08/20: icu, failed to wean, labs reviewed, jung 08/21: resting in bed, no overnight events, labs reviewed 08/22: awake, confused, restraints, no overnight events 08/23: no events, no bleeding, on ppi bid 08/24: icu, failed to wean, labs reviewed 08/25: no overnight events, us chest, restraints, afebrile 08/26 difficult in weaning, nad, seen by surg, pulm labs noted 08/27 awake on restraints, thoracentesis for am, labs reviewed 08/29 no bleeding, no night sweats, no major changes, on ppi bid 08/30 no major events, remains on vent, no bleeding, dw pcp 08/31 hgb dropped to 3.6, has been transfused with prbc, in icu, dw Rn, ct chest pend 09/01 no major events, no bleeding, labs noted, hgb remains low, hgb 9.6 09/03 lethargic, left chest tube dry/intact, off abx, vent 09/04 remains on a vent, synthroid, labs reviewed 09/05 awake and alert, no acute events, hgb 9.8, no new orders 09/06 no bleeding or chills, labs noted, no major events overnight, dw rn 09/07 no events, no night sweats, no bleeding, no fc, remains agitated in the am 09/08 remains in the icu, trach was done, on vent, abx off, on epo 09/10 transferred to sdu, restraints, vent, labs reviewed 09/11 tube feeds have been ongoing, no f/c, labs reviewed 09/12 no events, no bleeding, no night sweats, hgb 10 09/13 tsh is improved, remains confused, hgb is 11, no bleeding 09/14 no events, no bleeding, labs noted, vitals stable 09/15 confused, no acute events, restraints, dc planning Objective Objective Current Medications Medications (Trade) Dose Ordered Sig/Javier Route PRN Reason Start Time Stop Time Status Last Admin Dose Admin Acetaminophen (Tylenol) 650 mg Q4H PRN GT Mild Pain/Temp > 100.5 09/03/19 07:00 10/03/19 06:59 09/09/19 06:13 Acetylcysteine (Mucomyst) 100 mg Q4HRT [facility] 08/31/19 19:00 11/29/19 18:59 09/16/19 07:00 Albuterol/ Ipratropium (Albuterol/ Ipratropium) 3 ml Q4HRT N 09/11/19 11:00 09/16/19 10:59 09/16/19 08:25 Amlodipine Besylate (Norvasc) 5 mg BID NG 08/23/19 01:45 09/22/19 01:44 09/16/19 09:16 Dextrose (Dextrose 50%) 25 ml Q30M PRN IV Hypoglycemia 09/02/19 06:15 12/01/19 06:14 09/04/19 12:11 Dextrose (Dextrose 50%) 50 ml Q30M PRN IV Hypoglycemia 09/02/19 06:15 12/01/19 06:14 Hydralazine HCl (Apresoline) 10 mg Q4H PRN IV For High Blood Pressure 08/18/19 12:44 09/17/19 12:43 09/01/19 20:27 Hydralazine HCl (Apresoline) 25 mg Q6HR NG 08/23/19 06:00 09/22/19 05:59 09/16/19 05:27 Lansoprazole (Prevacid) 30 mg BID GT 08/19/19 09:00 09/18/19 08:59 09/16/19 09:15 Levothyroxine Sodium (Synthroid) 100 mcg DAILY@0630 ORAL 09/14/19 06:30 09/24/19 06:29 09/16/19 05:27 Last 24 Hour Vital Signs Date Time Temp Pulse Resp B/P (MAP) Pulse Ox O2 Delivery O2 Flow Rate FiO2 09/16/19 09:16 76 147/73 09/16/19 08:25 81 19 100 Mechanical Ventilator 30 84 17 30 09/16/19 05:27 119/80 09/16/19 04:41 79 18 30 09/16/19 04:00 97.3 76 18 155/82 (106) 97 09/16/19 04:00 30 09/16/19 04:00 Mechanical Ventilator Mechanical Ventilator Mechanical Ventilator Mechanical Ventilator 09/16/19 04:00 76 09/16/19 03:18 76 18 100 Mechanical Ventilator 30 78 18 30 09/16/19 01:16 83 18 30 09/16/19 01:11 83 18 100 Mechanical Ventilator 40 09/16/19 00:40 119/80 09/16/19 00:00 30 09/16/19 00:00 Mechanical Ventilator Mechanical Ventilator Mechanical Ventilator Mechanical Ventilator 09/16/19 00:00 97.7 80 18 119/80 (93) 100 09/15/19 23:25 81 18 100 Mechanical Ventilator 30 84 18 30 09/15/19 20:33 76 18 30 09/15/19 20:00 30 09/15/19 20:00 74 09/15/19 20:00 97.9 73 18 140/70 (93) 99 09/15/19 20:00 Mechanical Ventilator Mechanical Ventilator Mechanical Ventilator Mechanical Ventilator 09/15/19 19:02 79 18 100 Mechanical Ventilator 30 83 18 30 09/15/19 18:14 84 145/67 09/15/19 18:14 145/67 09/15/19 17:07 84 21 30 09/15/19 16:00 30 09/15/19 16:00 73 09/15/19 16:00 Mechanical Ventilator Mechanical Ventilator Mechanical Ventilator Mechanical Ventilator 09/15/19 16:00 98.9 76 18 145/67 (93) 99 09/15/19 15:29 72 18 100 Mechanical Ventilator 30 80 18 30 09/15/19 12:22 157/73 09/15/19 12:10 75 18 30 09/15/19 12:05 30 09/15/19 12:05 98.4 76 18 157/73 (101) 100 09/15/19 12:00 Mechanical Ventilator Mechanical Ventilator Mechanical Ventilator Mechanical Ventilator 09/15/19 12:00 71 09/15/19 10:22 78 18 100 Mechanical Ventilator 30 80 18 30 09/15/19 10:04 92 148/75 09/15/19 08:32 92 20 30 09/15/19 08:27 100 09/15/19 08:00 99.0 72 18 148/75 (99) 94 09/15/19 08:00 30 09/15/19 08:00 Mechanical Ventilator Mechanical Ventilator Mechanical Ventilator Mechanical Ventilator 09/15/19 08:00 72 09/15/19 07:12 74 18 100 Mechanical Ventilator 30 79 18 30 09/15/19 06:11 145/70 09/15/19 05:01 74 18 30 09/15/19 04:00 98.4 78 18 145/70 (95) 100 09/15/19 04:00 30 09/15/19 04:00 Mechanical Ventilator Mechanical Ventilator Mechanical Ventilator Mechanical Ventilator 09/15/19 04:00 83 09/15/19 03:08 88 18 100 Mechanical Ventilator 30 85 18 30 09/15/19 00:55 80 18 30 09/15/19 00:28 154/88 09/15/19 00:00 89 09/15/19 00:00 98.6 86 18 154/88 (110) 99 09/15/19 00:00 Mechanical Ventilator Mechanical Ventilator Mechanical Ventilator Mechanical Ventilator 09/14/19 22:50 79 18 100 Mechanical Ventilator 30 82 18 30 09/14/19 21:03 71 19 30 09/14/19 20:00 97.8 76 18 152/77 (102) 99 09/14/19 20:00 30 09/14/19 20:00 Mechanical Ventilator Mechanical Ventilator Mechanical Ventilator Mechanical Ventilator 09/14/19 20:00 70 09/14/19 19:34 68 18 100 Mechanical Ventilator 30 68 18 30 09/14/19 17:15 155/77 09/14/19 17:14 64 155/77 09/14/19 17:01 64 18 30 09/14/19 16:00 Mechanical Ventilator Mechanical Ventilator Mechanical Ventilator Mechanical Ventilator 09/14/19 16:00 96.1 64 19 155/77 (103) 100 09/14/19 16:00 30 09/14/19 15:26 61 18 100 Mechanical Ventilator 30 63 19 30 09/14/19 15:25 61 09/14/19 13:23 64 18 30 09/14/19 12:28 163/84 09/14/19 12:00 30 09/14/19 12:00 Mechanical Ventilator Mechanical Ventilator Mechanical Ventilator Mechanical Ventilator 09/14/19 12:00 96.1 73 18 163/84 (110) 100 09/14/19 11:42 72 18 30 09/14/19 11:36 73 Intake and Output 09/15/19 09/16/19 19:00 07:00 Intake Total 860 ml 485 ml Output Total 300 ml 250 ml Balance 560 ml 235 ml Intake Free Water 200 ml 100 ml Tube Feeding 420 ml 385 ml Other 240 ml Output Urine Total 300 ml 250 ml # Bowel Movements 1 1 Labs Test 09/14/19 05:35 09/15/19 17:30 09/16/19 05:47 White Blood Count 7.8 K/UL (4.8-10.8) Red Blood Count 3.97 M/UL (4.20-5.40) Hemoglobin 11.7 G/DL (12.0-16.0) Hematocrit 35.4 % (37.0-47.0) Mean Corpuscular Volume 89 FL (80-99) Mean Corpuscular Hemoglobin 29.6 PG (27.0-31.0) Mean Corpuscular Hemoglobin Concent 33.2 G/DL (32.0-36.0) Red Cell Distribution Width 15.0 % (11.6-14.8) Platelet Count 473 K/UL (150-450) Mean Platelet Volume 5.0 FL (6.5-10.1) Neutrophils (%) (Auto) 64.7 % (45.0-75.0) Lymphocytes (%) (Auto) 28.7 % (20.0-45.0) Monocytes (%) (Auto) 4.7 % (1.0-10.0) Eosinophils (%) (Auto) 1.0 % (0.0-3.0) Basophils (%) (Auto) 0.9 % (0.0-2.0) Sodium Level 146 MMOL/L (136-145) 144 MMOL/L (136-145) Potassium Level 4.6 MMOL/L (3.5-5.1) 3.6 MMOL/L (3.5-5.1) Chloride Level 105 MMOL/L (98-107) 106 MMOL/L (98-107) Carbon Dioxide Level 24 MMOL/L (21-32) 25 MMOL/L (21-32) Anion Gap 17 mmol/L (5-15) 13 mmol/L (5-15) Blood Urea Nitrogen 52 mg/dL (7-18) 67 mg/dL (7-18) Creatinine 2.8 MG/DL (0.55-1.30) 3.5 MG/DL (0.55-1.30) Estimat Glomerular Filtration Rate 16.3 mL/min (>60) 12.6 mL/min (>60) Glucose Level 112 MG/DL (74-106) 91 MG/DL (74-106) Calcium Level 9.9 MG/DL (8.5-10.1) 8.9 MG/DL (8.5-10.1) Phosphorus Level 3.4 MG/DL (2.5-4.9) Magnesium Level 2.4 MG/DL (1.8-2.4) Total Bilirubin 0.6 MG/DL (0.2-1.0) 0.5 MG/DL (0.2-1.0) Aspartate Amino Transf (AST/SGOT) 109 U/L (15-37) 66 U/L (15-37) Alanine Aminotransferase (ALT/SGPT) 42 U/L (12-78) 30 U/L (12-78) Alkaline Phosphatase 194 U/L (46-116) 150 U/L (46-116) C-Reactive Protein, Quantitative 13.1 mg/dL (0.00-0.90) Pro-B-Type Natriuretic Peptide > 81298 pg/mL (0-125) Total Protein 7.6 G/DL (6.4-8.2) 6.6 G/DL (6.4-8.2) Albumin 2.7 G/DL (3.4-5.0) 2.0 G/DL (3.4-5.0) Globulin 4.9 g/dL 4.6 g/dL Albumin/Globulin Ratio 0.6 (1.0-2.7) 0.4 (1.0-2.7) Hepatitis B Surface Antigen Negative (NEGATIVE) Hepatitis B Surface Antibody, Quant 10 mIU/mL Hepatitis C Antibody 0.67 S/CO (<0.80) Total Creatine Kinase 48 U/L (26-308) Height (Feet): 5 Height (Inches): 4.00 Weight (Pounds): 112 Objective Physical Exam vitals; reviewed gen: nad pulm: on trach+ / vent, decreased breath sounds left, chest tube+ cv: rrr, no gmr abd: sfot, nt, nd ++ gt ext: no cce Gio Rob MD Sep 16, 2019 10:48
--- NOTE | 2019-09-16 10:59 | Infectious Diseases Prog Note ---
Assessment/Plan Assessment/Plan antibiotics : none A 1. jarad albicans fungemia s/p rx 2. right shoulder septic arthritis with staph aureus s/p rx 3. pleural effusion 4. thrombocytopenia resolved 7. diabetes mellitus 8. hypertension 9. respiratory failure P 1. observe off antibiotics Subjective ROS Limited/Unobtainable: Yes Allergies: Coded Allergies: VANCOMYCIN (Unverified Allergy, Unknown, 08/02/19) Objective Vital Signs Last 24 Hour Vital Signs Date Time Temp Pulse Resp B/P (MAP) Pulse Ox O2 Delivery O2 Flow Rate FiO2 09/16/19 09:16 76 147/73 09/16/19 08:25 81 19 100 Mechanical Ventilator 30 84 17 30 09/16/19 05:27 119/80 09/16/19 04:41 79 18 30 09/16/19 04:00 97.3 76 18 155/82 (106) 97 09/16/19 04:00 30 09/16/19 04:00 Mechanical Ventilator Mechanical Ventilator Mechanical Ventilator Mechanical Ventilator 09/16/19 04:00 76 09/16/19 03:18 76 18 100 Mechanical Ventilator 30 78 18 30 09/16/19 01:16 83 18 30 09/16/19 01:11 83 18 100 Mechanical Ventilator 40 09/16/19 00:40 119/80 09/16/19 00:00 30 09/16/19 00:00 Mechanical Ventilator Mechanical Ventilator Mechanical Ventilator Mechanical Ventilator 09/16/19 00:00 97.7 80 18 119/80 (93) 100 09/15/19 23:25 81 18 100 Mechanical Ventilator 30 84 18 30 09/15/19 20:33 76 18 30 09/15/19 20:00 30 09/15/19 20:00 74 09/15/19 20:00 97.9 73 18 140/70 (93) 99 09/15/19 20:00 Mechanical Ventilator Mechanical Ventilator Mechanical Ventilator Mechanical Ventilator 09/15/19 19:02 79 18 100 Mechanical Ventilator 30 83 18 30 09/15/19 18:14 84 145/67 09/15/19 18:14 145/67 09/15/19 17:07 84 21 30 09/15/19 16:00 30 09/15/19 16:00 73 09/15/19 16:00 Mechanical Ventilator Mechanical Ventilator Mechanical Ventilator Mechanical Ventilator 09/15/19 16:00 98.9 76 18 145/67 (93) 99 09/15/19 15:29 72 18 100 Mechanical Ventilator 30 80 18 30 09/15/19 12:22 157/73 09/15/19 12:10 75 18 30 09/15/19 12:05 30 09/15/19 12:05 98.4 76 18 157/73 (101) 100 09/15/19 12:00 Mechanical Ventilator Mechanical Ventilator Mechanical Ventilator Mechanical Ventilator 09/15/19 12:00 71 Height (Feet): 5 Height (Inches): 4.00 Weight (Pounds): 112 HEENT: status post trach Respiratory/Chest: lungs clear Cardiovascular: normal rate, regular rhythm, no gallop/murmur Abdomen: soft, non tender, other - GT Extremities: no edema, other - right groin catheter Laboratory Tests Test 09/15/19 17:30 09/16/19 05:47 Hepatitis B Surface Antigen Negative (NEGATIVE) Hepatitis B Surface Antibody, Quant 10 mIU/mL Hepatitis C Antibody 0.67 S/CO (<0.80) Sodium Level 144 MMOL/L (136-145) Potassium Level 3.6 MMOL/L (3.5-5.1) Chloride Level 106 MMOL/L (98-107) Carbon Dioxide Level 25 MMOL/L (21-32) Anion Gap 13 mmol/L (5-15) Blood Urea Nitrogen 67 mg/dL (7-18) H Creatinine 3.5 MG/DL (0.55-1.30) H Estimat Glomerular Filtration Rate 12.6 mL/min (>60) Glucose Level 91 MG/DL (74-106) Calcium Level 8.9 MG/DL (8.5-10.1) Total Bilirubin 0.5 MG/DL (0.2-1.0) Aspartate Amino Transf (AST/SGOT) 66 U/L (15-37) H Alanine Aminotransferase (ALT/SGPT) 30 U/L (12-78) Alkaline Phosphatase 150 U/L (46-116) H Total Creatine Kinase 48 U/L (26-308) Total Protein 6.6 G/DL (6.4-8.2) Albumin 2.0 G/DL (3.4-5.0) L Globulin 4.6 g/dL Albumin/Globulin Ratio 0.4 (1.0-2.7) L Current Medications Medications (Trade) Dose Ordered Sig/Javier Route PRN Reason Start Time Stop Time Status Last Admin Dose Admin Acetaminophen (Tylenol) 650 mg Q4H PRN GT Mild Pain/Temp > 100.5 09/03/19 07:00 10/03/19 06:59 09/09/19 06:13 Acetylcysteine (Mucomyst) 100 mg Q4HRT N 08/31/19 19:00 11/29/19 18:59 09/16/19 07:00 Albuterol/ Ipratropium (Albuterol/ Ipratropium) 3 ml Q4HRT N 09/11/19 11:00 09/16/19 10:59 09/16/19 08:25 Amlodipine Besylate (Norvasc) 5 mg BID NG 08/23/19 01:45 09/22/19 01:44 09/16/19 09:16 Dextrose (Dextrose 50%) 25 ml Q30M PRN IV Hypoglycemia 09/02/19 06:15 12/01/19 06:14 09/04/19 12:11 Dextrose (Dextrose 50%) 50 ml Q30M PRN IV Hypoglycemia 09/02/19 06:15 12/01/19 06:14 Hydralazine HCl (Apresoline) 10 mg Q4H PRN IV For High Blood Pressure 08/18/19 12:44 09/17/19 12:43 09/01/19 20:27 Hydralazine HCl (Apresoline) 25 mg Q6HR NG 08/23/19 06:00 09/22/19 05:59 09/16/19 05:27 Lansoprazole (Prevacid) 30 mg BID GT 08/19/19 09:00 09/18/19 08:59 09/16/19 09:15 Levothyroxine Sodium (Synthroid) 100 mcg DAILY@0630 ORAL 09/14/19 06:30 09/24/19 06:29 09/16/19 05:27 Melissa Solares MD Sep 16, 2019 10:59
--- NOTE | 2019-09-16 11:03 | Nephrology Progress Note ---
Assessment/Plan Problem List: (1) ESRD (end stage renal disease) on dialysis (2) Malnutrition (3) Anemia in CKD (chronic kidney disease) (4) Hypotension (5) Thrombocytopenia (6) Sepsis Assessment: klebsiella in blood Assessment -Early sepsis with shock. -Healthcare-associated pneumonia. -Severe protein-calorie malnutrition. -Thrombocytopenia. - End-stage renal disease. - History of hypertension. - Bradycardia. - HypoThyroid Plan Tracheostomy September 07 Last dialysis September 12, next dialysis scheduled for September 16 Chest tube on the left side was put in on September 01 was discontinued September 07 Patient transfused 3 units of packed RBCs for low hemoglobin Remains full code Blood pressure fluctuating, will start hydralazine via NG tube for blood pressure Magnesium and potassium supplement intravenously as needed Patient underwent PEG placement August 16 patient remains intubated on ventilator Discussed with RN Aim to wean from ventilator or consider tracheostomy Permacath was removed on August 12 Dialysis 08/11 Transfusion as needed Patient had hematemesis meds IV as possible Surveillance blood cultures tomorrow Plan to put the permacath back in on Thursday if cultures are negative keep BP and BS in check Inflammatory markers per orders Subjective ROS Limited/Unobtainable: Yes Objective Objective Last 24 Hour Vital Signs Date Time Temp Pulse Resp B/P (MAP) Pulse Ox O2 Delivery O2 Flow Rate FiO2 09/16/19 09:16 76 147/73 09/16/19 08:25 81 19 100 Mechanical Ventilator 30 84 17 30 09/16/19 05:27 119/80 09/16/19 04:41 79 18 30 09/16/19 04:00 97.3 76 18 155/82 (106) 97 09/16/19 04:00 30 09/16/19 04:00 Mechanical Ventilator Mechanical Ventilator Mechanical Ventilator Mechanical Ventilator 09/16/19 04:00 76 09/16/19 03:18 76 18 100 Mechanical Ventilator 30 78 18 30 09/16/19 01:16 83 18 30 09/16/19 01:11 83 18 100 Mechanical Ventilator 40 09/16/19 00:40 119/80 09/16/19 00:00 30 09/16/19 00:00 Mechanical Ventilator Mechanical Ventilator Mechanical Ventilator Mechanical Ventilator 09/16/19 00:00 97.7 80 18 119/80 (93) 100 09/15/19 23:25 81 18 100 Mechanical Ventilator 30 84 18 30 09/15/19 20:33 76 18 30 4/2/20 20:00 30 09/15/19 20:00 74 09/15/19 20:00 97.9 73 18 140/70 (93) 99 09/15/19 20:00 Mechanical Ventilator Mechanical Ventilator Mechanical Ventilator Mechanical Ventilator 09/15/19 19:02 79 18 100 Mechanical Ventilator 30 83 18 30 09/15/19 18:14 84 145/67 09/15/19 18:14 145/67 09/15/19 17:07 84 21 30 09/15/19 16:00 30 09/15/19 16:00 73 09/15/19 16:00 Mechanical Ventilator Mechanical Ventilator Mechanical Ventilator Mechanical Ventilator 09/15/19 16:00 98.9 76 18 145/67 (93) 99 09/15/19 15:29 72 18 100 Mechanical Ventilator 30 80 18 30 09/15/19 12:22 157/73 09/15/19 12:10 75 18 30 09/15/19 12:05 30 09/15/19 12:05 98.4 76 18 157/73 (101) 100 09/15/19 12:00 Mechanical Ventilator Mechanical Ventilator Mechanical Ventilator Mechanical Ventilator 09/15/19 12:00 71 Intake and Output 09/15/19 09/16/19 19:00 07:00 Intake Total 860 ml 485 ml Output Total 300 ml 250 ml Balance 560 ml 235 ml Intake Free Water 200 ml 100 ml Tube Feeding 420 ml 385 ml Other 240 ml Output Urine Total 300 ml 250 ml # Bowel Movements 1 1 Laboratory Tests 09/15/19 17:30: Hepatitis B Surface Antigen Negative, Hepatitis B Surface Antibody, Quant 10, Hepatitis C Antibody 0.67 09/16/19 05:47: Sodium Level 144, Potassium Level 3.6, Chloride Level 106, Carbon Dioxide Level 25, Anion Gap 13, Blood Urea Nitrogen 67H, Creatinine 3.5H, Estimat Glomerular Filtration Rate 12.6, Glucose Level 91, Calcium Level 8.9, Total Bilirubin 0.5, Aspartate Amino Transf (AST/SGOT) 66H, Alanine Aminotransferase (ALT/SGPT) 30, Alkaline Phosphatase 150H, Total Creatine Kinase 48, Total Protein 6.6, Albumin 2.0L, Globulin 4.6, Albumin/Globulin Ratio 0.4L Height (Feet): 5 Height (Inches): 4.00 Weight (Pounds): 112 General Appearance: no apparent distress EENT: other - Trached and vent Cardiovascular: normal rate Respiratory/Chest: decreased breath sounds Abdomen: soft, other - GT tube feeding in process Objective no change William Blackwood MD Sep 16, 2019 11:03
[2019-09-16 12:00] VITALS: BP 159/76
--- NOTE | 2019-09-16 13:47 | Critical Care Progress Note ---
Assessment/Plan Assessment/Plan respiratory failure hemoptysis resolved hypoxemia chronic renal failure toxic met encephalopathy severe protein calorie malnutrition cachexia left lung whiteout/collapse, improved with intubation s/p intubation anemia ? blood loss pulmonary edema with elevated BNP + pleural effusion worsening s/p CT placement and removal s/p trach hypernatremia PLAN trach care as is monitor for change care noted and reviewed monitor for fluid retention; reviewed care and continue to monitor retry wean prognosis poor overall for change keep negative and monitor osmotic pressures fully dependent close follow up discussed elevated head and monitor ROM watch fluid status and keep negative nutrition and monitor residuals isolation reviewed off load as able and monitor skin exam ROM as able and monitor contractures impression, plan, and exam edited and reviewed in detail care discussed with computer project manager - Subjective ROS Limited/Unobtainable: Yes Condition: unchanged EKG Rhythm: Sinus Rhythm Residuals: minimal Tube Feeding Tolerated: yes I&O: Intake and Output 09/15/19 09/16/19 19:00 07:00 Intake Total 860 ml 485 ml Output Total 300 ml 250 ml Balance 560 ml 235 ml Intake Free Water 200 ml 100 ml Tube Feeding 420 ml 385 ml Other 240 ml Output Urine Total 300 ml 250 ml # Bowel Movements 1 1 Critical Care - Objective ET-Tube: 7.0 ET Position: 19 Last 24 Hour Vital Signs Date Time Temp Pulse Resp B/P (MAP) Pulse Ox O2 Delivery O2 Flow Rate FiO2 09/16/19 12:00 80 09/16/19 12:00 30 09/16/19 12:00 97.3 81 20 159/76 (103) 96 09/16/19 12:00 Mechanical Ventilator Mechanical Ventilator Mechanical Ventilator Mechanical Ventilator 09/16/19 11:11 88 18 30 09/16/19 09:16 76 147/73 09/16/19 08:25 81 19 100 Mechanical Ventilator 30 84 17 30 09/16/19 08:01 75 09/16/19 08:01 Mechanical Ventilator Mechanical Ventilator Mechanical Ventilator Mechanical Ventilator 09/16/19 08:00 97.3 76 20 142/73 (96) 95 09/16/19 08:00 30 09/16/19 05:27 119/80 09/16/19 04:41 79 18 30 09/16/19 04:00 97.3 76 18 155/82 (106) 97 09/16/19 04:00 30 09/16/19 04:00 Mechanical Ventilator Mechanical Ventilator Mechanical Ventilator Mechanical Ventilator 09/16/19 04:00 76 09/16/19 03:18 76 18 100 Mechanical Ventilator 30 78 18 30 09/16/19 01:16 83 18 30 09/16/19 01:11 83 18 100 Mechanical Ventilator 40 09/16/19 00:40 119/80 09/16/19 00:00 30 09/16/19 00:00 Mechanical Ventilator Mechanical Ventilator Mechanical Ventilator Mechanical Ventilator 09/16/19 00:00 97.7 80 18 119/80 (93) 100 09/15/19 23:25 81 18 100 Mechanical Ventilator 30 84 18 30 09/15/19 20:33 76 18 30 09/15/19 20:00 30 09/15/19 20:00 74 09/15/19 20:00 97.9 73 18 140/70 (93) 99 09/15/19 20:00 Mechanical Ventilator Mechanical Ventilator Mechanical Ventilator Mechanical Ventilator 09/15/19 19:02 79 18 100 Mechanical Ventilator 30 83 18 30 09/15/19 18:14 84 145/67 09/15/19 18:14 145/67 09/15/19 17:07 84 21 30 09/15/19 16:00 30 09/15/19 16:00 73 09/15/19 16:00 Mechanical Ventilator Mechanical Ventilator Mechanical Ventilator Mechanical Ventilator 09/15/19 16:00 98.9 76 18 145/67 (93) 99 09/15/19 15:29 72 18 100 Mechanical Ventilator 30 80 18 30 Labs: Labs Test 09/14/19 05:35 09/15/19 17:30 09/16/19 05:47 White Blood Count 7.8 K/UL (4.8-10.8) Red Blood Count 3.97 M/UL (4.20-5.40) Hemoglobin 11.7 G/DL (12.0-16.0) Hematocrit 35.4 % (37.0-47.0) Mean Corpuscular Volume 89 FL (80-99) Mean Corpuscular Hemoglobin 29.6 PG (27.0-31.0) Mean Corpuscular Hemoglobin Concent 33.2 G/DL (32.0-36.0) Red Cell Distribution Width 15.0 % (11.6-14.8) Platelet Count 473 K/UL (150-450) Mean Platelet Volume 5.0 FL (6.5-10.1) Neutrophils (%) (Auto) 64.7 % (45.0-75.0) Lymphocytes (%) (Auto) 28.7 % (20.0-45.0) Monocytes (%) (Auto) 4.7 % (1.0-10.0) Eosinophils (%) (Auto) 1.0 % (0.0-3.0) Basophils (%) (Auto) 0.9 % (0.0-2.0) Sodium Level 146 MMOL/L (136-145) 144 MMOL/L (136-145) Potassium Level 4.6 MMOL/L (3.5-5.1) 3.6 MMOL/L (3.5-5.1) Chloride Level 105 MMOL/L (98-107) 106 MMOL/L (98-107) Carbon Dioxide Level 24 MMOL/L (21-32) 25 MMOL/L (21-32) Anion Gap 17 mmol/L (5-15) 13 mmol/L (5-15) Blood Urea Nitrogen 52 mg/dL (7-18) 67 mg/dL (7-18) Creatinine 2.8 MG/DL (0.55-1.30) 3.5 MG/DL (0.55-1.30) Estimat Glomerular Filtration Rate 16.3 mL/min (>60) 12.6 mL/min (>60) Glucose Level 112 MG/DL (74-106) 91 MG/DL (74-106) Calcium Level 9.9 MG/DL (8.5-10.1) 8.9 MG/DL (8.5-10.1) Phosphorus Level 3.4 MG/DL (2.5-4.9) Magnesium Level 2.4 MG/DL (1.8-2.4) Total Bilirubin 0.6 MG/DL (0.2-1.0) 0.5 MG/DL (0.2-1.0) Aspartate Amino Transf (AST/SGOT) 109 U/L (15-37) 66 U/L (15-37) Alanine Aminotransferase (ALT/SGPT) 42 U/L (12-78) 30 U/L (12-78) Alkaline Phosphatase 194 U/L (46-116) 150 U/L (46-116) C-Reactive Protein, Quantitative 13.1 mg/dL (0.00-0.90) Pro-B-Type Natriuretic Peptide > 33793 pg/mL (0-125) Total Protein 7.6 G/DL (6.4-8.2) 6.6 G/DL (6.4-8.2) Albumin 2.7 G/DL (3.4-5.0) 2.0 G/DL (3.4-5.0) Globulin 4.9 g/dL 4.6 g/dL Albumin/Globulin Ratio 0.6 (1.0-2.7) 0.4 (1.0-2.7) Hepatitis B Surface Antigen Negative (NEGATIVE) Hepatitis B Surface Antibody, Quant 10 mIU/mL Hepatitis C Antibody 0.67 S/CO (<0.80) Total Creatine Kinase 48 U/L (26-308) Objective: WDWN NAD trach in place reduced breath sounds left greater right; no rhonchi [id number] without MRG NABS nontender no HSM no CCE contractures feeding tube in place no distention reduced LOC and weak nonfocal cachectic reviewed and edited Accucheck: 95 Malcolm Cruz MD Sep 16, 2019 13:47
[2019-09-16 16:00] VITALS: BP 143/81
--- NOTE | 2019-09-16 18:56 | Surgery Progress Note ---
Surgery Progress Note Subjective Procedure Performed 1. tracheostomy 2 removal of left tube thoracostomy Additional Comments ill appearing not able to wean vent support draining from left chest tube suture site still Objective Last 24 Hour Vital Signs Date Time Temp Pulse Resp B/P (MAP) Pulse Ox O2 Delivery O2 Flow Rate FiO2 09/16/19 18:26 78 143/81 09/16/19 18:26 143/81 09/16/19 16:30 78 18 30 09/16/19 16:00 Mechanical Ventilator Mechanical Ventilator Mechanical Ventilator Mechanical Ventilator 09/16/19 16:00 77 09/16/19 16:00 30 09/16/19 16:00 99.3 119 24 143/81 (101) 100 09/16/19 15:25 79 18 30 09/16/19 14:05 159/76 09/16/19 13:56 81 18 30 09/16/19 12:00 80 09/16/19 12:00 30 09/16/19 12:00 97.3 81 20 159/76 (103) 96 09/16/19 12:00 Mechanical Ventilator Mechanical Ventilator Mechanical Ventilator Mechanical Ventilator 09/16/19 11:11 88 18 30 09/16/19 09:16 76 147/73 09/16/19 08:25 81 19 100 Mechanical Ventilator 30 84 17 30 09/16/19 08:01 75 09/16/19 08:01 Mechanical Ventilator Mechanical Ventilator Mechanical Ventilator Mechanical Ventilator 09/16/19 08:00 97.3 76 20 142/73 (96) 95 09/16/19 08:00 30 09/16/19 05:27 119/80 09/16/19 04:41 79 18 30 09/16/19 04:00 97.3 76 18 155/82 (106) 97 09/16/19 04:00 30 09/16/19 04:00 Mechanical Ventilator Mechanical Ventilator Mechanical Ventilator Mechanical Ventilator 09/16/19 04:00 76 09/16/19 03:18 76 18 100 Mechanical Ventilator 30 78 18 30 09/16/19 01:16 83 18 30 09/16/19 01:11 83 18 100 Mechanical Ventilator 40 09/16/19 00:40 119/80 09/16/19 00:00 30 09/16/19 00:00 Mechanical Ventilator Mechanical Ventilator Mechanical Ventilator Mechanical Ventilator 09/16/19 00:00 97.7 80 18 119/80 (93) 100 09/15/19 23:25 81 18 100 Mechanical Ventilator 30 84 18 30 09/15/19 20:33 76 18 30 09/15/19 20:00 30 09/15/19 20:00 74 09/15/19 20:00 97.9 73 18 140/70 (93) 99 09/15/19 20:00 Mechanical Ventilator Mechanical Ventilator Mechanical Ventilator Mechanical Ventilator 09/15/19 19:02 79 18 100 Mechanical Ventilator 30 83 18 30 I&O Intake and Output 09/15/19 09/16/19 19:00 07:00 Intake Total 860 ml 520 ml Output Total 300 ml 250 ml Balance 560 ml 270 ml Intake Free Water 200 ml 100 ml Tube Feeding 420 ml 420 ml Other 240 ml Output Urine Total 300 ml 250 ml # Bowel Movements 1 1 Dressing: saturated Wound: other Cardiovascular: RSR Respiratory: decreased breath sounds Abdomen: soft, non-tender, present bowel sounds Extremities: no edema, no tenderness, no cyanosis Laboratory Tests Test 09/16/19 05:47 Sodium Level 144 MMOL/L (136-145) Potassium Level 3.6 MMOL/L (3.5-5.1) Chloride Level 106 MMOL/L (98-107) Carbon Dioxide Level 25 MMOL/L (21-32) Anion Gap 13 mmol/L (5-15) Blood Urea Nitrogen 67 mg/dL (7-18) H Creatinine 3.5 MG/DL (0.55-1.30) H Estimat Glomerular Filtration Rate 12.6 mL/min (>60) Glucose Level 91 MG/DL (74-106) Calcium Level 8.9 MG/DL (8.5-10.1) Total Bilirubin 0.5 MG/DL (0.2-1.0) Aspartate Amino Transf (AST/SGOT) 66 U/L (15-37) H Alanine Aminotransferase (ALT/SGPT) 30 U/L (12-78) Alkaline Phosphatase 150 U/L (46-116) H Total Creatine Kinase 48 U/L (26-308) Total Protein 6.6 G/DL (6.4-8.2) Albumin 2.0 G/DL (3.4-5.0) L Globulin 4.6 g/dL Albumin/Globulin Ratio 0.4 (1.0-2.7) L Assessment Post-op Diagnosis same Plan Problems: (1) Malnutrition Assessment & Plan: DAILY ESTIMATED NEEDS: Needs based on ESRD+ HD, underweight, wound/ 39.5kg 35-40 kcals/kg 1984-9406 total kcals 1.25-1.8 g protein/kg 49-71 g total protein 20-22 mL/kg 790-869 total fluid mLs NUTRITION DIAGNOSIS: * Increased kcal and protein needs r/t underweight status, HD needs, wuond healing as evidenced by pt is underweight per guidelines, ESRD, on HD, admitted non-blanching erythema wounds @ BL heels and sacrum * Swallowing difficulty R/T dysphagia as evidenced by [employer] recommends temporary nonoral feeding at this time, s/p NGT insertion, on NGT feeding-> now s/p self removal, NPO. CURRENT TF:NPO PO DIET RECOMMENDATIONS: WHEN SAFE FOR ORAL DIET -> renal/ texture per [employer] ENTERAL NUTRITION RECOMMENDATIONS: W/ GI access: Nepro @ 35ml/hr x 22 hrs to provide 770ml, 1386kcal, 62g prot, 560ml free water * W/ GI access, resume TF on Nepro * Initiate Nepro @ 15ml/hr x 6 hrs, advance 10ml q 4-6 hrs as tolerated to goal rate. * Hold 1 hour before and after Synthroid med * HOB over 30 degrees/ water flush per MD. ADDITIONAL RECOMMENDATIONS: 1) Calibrated bed scale wt for accurate CBW -> daily wt monitoring Per HD record: dry wt on 07/30=39.5kg (87lbs) 2) Wound care: (W/ GI access) add Nephorivte x 1 + Balta BID 3) Monitor NPO status: without GI access at this time, s/p pulling out NGT 4) Monitor for hypoglycemia while NPO 5) Monitor for continuity of HD (2) Septic arthritis Assessment & Plan: Pt presented on admission with generalized scaly rash . pt noted to be restless and scratching at skin. Bleeding from oral mucosa noted. Joint deformity noted to R shoulder. Surgical incision approximated with 11 sutures. Erythema but no exudate,or elevation in skin temp at site of incision. Historical incision R hip that is tunneled.Small amt seropurulent exudate noted. Periwound is erythematous,but no elevation in skin temp noted. No odor noted. Non-blanching erythema noted to sacrum. Perianal area is erythematous and excoriated. L heel is boggy with non-blanching erythema. R heel is soft with non-blanching erythema. No evidence of skin breakdown to all other bony prominences. Tx.plan: Cover R shoulder with Drsg and change daily and prn. Cleanse R hip wound with Saline. Apply Therahoney.Apply Cavilon Skin Barrier periwound. Cover with Optifoam drsg. Change every 3 days and prn. Apply Moisture Barrier Paste to perianal area and buttocks. Cover Sacrum with Optifoam drsg. Change every 3 days and prn. Apply Cavilon Skin Barrier to both heels. Cover each heel with Optifoam drsg. Change every 7 days and prn. APM/ELVIA Mattress overlay. Reposition at least every 2hours or as tolerated. Off-load heels with pillow. HD cath necessary HD as renal likely will need intubation (3) Wound, open, hip or thigh with complication Assessment & Plan: slow healing will need nutritional optimization difficult ng tube peg when stable sutures removed from right shoulder comfortable wean vent may need trach (4) Abscess of right hip (5) possible septic arthritis (6) Renal failure (ARF), acute on chronic Assessment & Plan: cont HD will need tunneled cath placement okay to use fem line for now but will need change soon. line monitored and clean dressings going well (7) Pneumonia Assessment & Plan: intubated on vent support not tolerating weaning may need trach hemothorax likely after thoracentesis Chest CT noted Left chest tube placed With plan for trach chest tube can be considered but overall prognosis is very poor s/p trach left chest tub eout cxr noted and okay downgrade left pleural effusion dressings saturated will need to monitor. may need another chest tube as may not heal well on left side Camilo James Sep 16, 2019 18:56
[2019-09-16 20:00] VITALS: BP 138/80
--- NOTE | 2019-09-16 21:57 | General Progress Note ---
Assessment/Plan Status: stable, not improved, unchanged, deteriorating Assessment/Plan: Assessment - Severe ulcerative esophagitis - mild elevation in LFT, Hepatitis B/C negative - Resp failure - s/p recent Chest tube - thrombocytopenia --> resolved - Renal failure - aspiration risk --> s/p PEG - anemia - mild elevation in alk phos - bradycardia - Poor prognosis Recommendations - GT care - water flushes - elevate HOB - monitor H&H - follow LFT - Check CPK - normal - vent Subjective Allergies: Coded Allergies: VANCOMYCIN (Unverified Allergy, Unknown, 08/02/19) Subjective Above noted No events overnight LFT about same Objective Last 24 Hour Vital Signs Date Time Temp Pulse Resp B/P (MAP) Pulse Ox O2 Delivery O2 Flow Rate FiO2 09/16/19 20:51 65 18 30 09/16/19 20:00 97.2 76 18 138/80 (99) 95 09/16/19 20:00 76 09/16/19 20:00 30 09/16/19 20:00 Mechanical Ventilator Mechanical Ventilator Mechanical Ventilator Mechanical Ventilator 09/16/19 19:02 68 18 30 09/16/19 18:26 78 143/81 09/16/19 18:26 143/81 09/16/19 16:30 78 18 30 09/16/19 16:00 Mechanical Ventilator Mechanical Ventilator Mechanical Ventilator Mechanical Ventilator 09/16/19 16:00 77 09/16/19 16:00 30 09/16/19 16:00 99.3 119 24 143/81 (101) 100 09/16/19 15:25 79 18 30 09/16/19 14:05 159/76 09/16/19 13:56 81 18 30 09/16/19 12:00 80 09/16/19 12:00 30 09/16/19 12:00 97.3 81 20 159/76 (103) 96 09/16/19 12:00 Mechanical Ventilator Mechanical Ventilator Mechanical Ventilator Mechanical Ventilator 09/16/19 11:11 88 18 30 09/16/19 09:16 76 147/73 09/16/19 08:25 81 19 100 Mechanical Ventilator 30 84 17 30 09/16/19 08:01 75 09/16/19 08:01 Mechanical Ventilator Mechanical Ventilator Mechanical Ventilator Mechanical Ventilator 09/16/19 08:00 97.3 76 20 142/73 (96) 95 09/16/19 08:00 30 09/16/19 05:27 119/80 09/16/19 04:41 79 18 30 09/16/19 04:00 97.3 76 18 155/82 (106) 97 09/16/19 04:00 30 09/16/19 04:00 Mechanical Ventilator Mechanical Ventilator Mechanical Ventilator Mechanical Ventilator 09/16/19 04:00 76 09/16/19 03:18 76 18 100 Mechanical Ventilator 30 78 18 30 09/16/19 01:16 83 18 30 09/16/19 01:11 83 18 100 Mechanical Ventilator 40 09/16/19 00:40 119/80 09/16/19 00:00 30 09/16/19 00:00 Mechanical Ventilator Mechanical Ventilator Mechanical Ventilator Mechanical Ventilator 09/16/19 00:00 97.7 80 18 119/80 (93) 100 09/15/19 23:25 81 18 100 Mechanical Ventilator 30 84 18 30 Intake and Output 09/15/19 09/16/19 19:00 07:00 Intake Total 860 ml 520 ml Output Total 300 ml 250 ml Balance 560 ml 270 ml Intake Free Water 200 ml 100 ml Tube Feeding 420 ml 420 ml Other 240 ml Output Urine Total 300 ml 250 ml # Bowel Movements 1 1 Laboratory Tests 09/16/19 05:47: Sodium Level 144, Potassium Level 3.6, Chloride Level 106, Carbon Dioxide Level 25, Anion Gap 13, Blood Urea Nitrogen 67H, Creatinine 3.5H, Estimat Glomerular Filtration Rate 12.6, Glucose Level 91, Calcium Level 8.9, Total Bilirubin 0.5, Aspartate Amino Transf (AST/SGOT) 66H, Alanine Aminotransferase (ALT/SGPT) 30, Alkaline Phosphatase 150H, Total Creatine Kinase 48, Total Protein 6.6, Albumin 2.0L, Globulin 4.6, Albumin/Globulin Ratio 0.4L Height (Feet): 5 Height (Inches): 4.00 Weight (Pounds): 112 Objective Debilitated frail woman NCAT (+) on vent supple, (+) trach scattered ronchi RR abd soft ND NT, (+) GT no edema Cristy Elizondo MD Sep 16, 2019 21:57
[2019-09-17] VITALS: BP 143/92
[2019-09-17] MEDS: Albuterol/Ipratropium 3ml neb HHN SCH ×6 (03:09→23:30)
--- NOTE | 2019-09-17 03:45 | Progress Note ---
DATE: 09/16/2019 CARDIOLOGY PROGRESS NOTE SUBJECTIVE: Condition largely unchanged. The patient is on ventilator support via trach. Tolerating nutrition by feeding tube. OBJECTIVE: GENERAL: Prior chest tube site with no bleeding or drainage. VITAL SIGNS: Blood pressure 143/81 and heart rate 78. LUNGS: Bilateral breath sounds. Few rhonchi. CARDIAC: Regular rhythm and rate. Normal S1 and S2. ABDOMEN: Soft. EXTREMITIES: No edema. LABORATORY DATA: Sodium 144, potassium 3.6, bicarb 25, BUN 67, and creatinine 3.5. Albumin 2.0. IMPRESSION: 1. Severe protein-calorie malnutrition. 2. Ventilator-dependent respiratory failure. 3. Resolved bradycardia. 4. Hypertensive heart disease. 5. End-stage renal disease. 6. Acute on chronic diastolic congestive heart failure with chronic elevation of natriuretic peptide assay. PLAN: 1. Plan of care is in place. 2. Continuing current management and medication regimen with hemodialysis and ultrafiltration for volume management. 3. The patient has a trach, weaning efforts in progress, off ventilator ____ trach collar and discharge planning to ascertain accepting facility for subacute level of care. Abel Stubbs M.D. DR: CHANDU JOB#: [id number] CC:
[2019-09-17 04:00] VITALS: BP 157/62
[2019-09-17] MEDS: HydrALAZINE 25mg tab NG SCH ×3 (06:41→18:44)
--- NOTE | 2019-09-17 07:38 | General Progress Note ---
Assessment/Plan Status: stable, not improved, unchanged, deteriorating Assessment/Plan: Assessment/Plan Status: stable, not improved, unchanged, deteriorating Assessment/Plan: Assessment - Severe ulcerative esophagitis on endoscopy - on BID PPI - Resp failure - thrombocytopenia --> resolved - Renal failure - aspiration risk --> s/p PEG - anemia - bradycardia - Poor prognosis Recommendations - TF - s/p blood transfusion -fu H&H and transfuse prn - elevate HOB - monitor H&H -s/p Chest tube placement - poor prognosis Subjective ROS Limited/Unobtainable: No Allergies: Coded Allergies: VANCOMYCIN (Unverified Allergy, Unknown, 08/02/19) Subjective s/p blood transfusion Objective Last 24 Hour Vital Signs Date Time Temp Pulse Resp B/P (MAP) Pulse Ox O2 Delivery O2 Flow Rate FiO2 09/17/19 07:13 65 19 100 Mechanical Ventilator 30 68 18 30 09/17/19 06:41 157/62 09/17/19 05:19 69 18 30 09/17/19 04:00 97.5 69 20 157/62 (93) 98 09/17/19 04:00 Mechanical Ventilator Mechanical Ventilator Mechanical Ventilator Mechanical Ventilator 09/17/19 04:00 30 09/17/19 03:53 73 09/17/19 03:19 68 18 100 Mechanical Ventilator 30 72 19 30 09/17/19 00:50 64 18 30 09/17/19 00:00 96.3 66 18 143/92 (109) 98 09/17/19 00:00 Mechanical Ventilator Mechanical Ventilator Mechanical Ventilator Mechanical Ventilator 09/17/19 00:00 72 09/16/19 23:23 138/80 09/16/19 22:58 65 18 30 09/16/19 20:51 65 18 30 09/16/19 20:00 97.2 76 18 138/80 (99) 95 09/16/19 20:00 76 09/16/19 20:00 30 09/16/19 20:00 Mechanical Ventilator Mechanical Ventilator Mechanical Ventilator Mechanical Ventilator 09/16/19 19:02 68 18 30 09/16/19 18:26 78 143/81 09/16/19 18:26 143/81 09/16/19 16:30 78 18 30 09/16/19 16:00 Mechanical Ventilator Mechanical Ventilator Mechanical Ventilator Mechanical Ventilator 09/16/19 16:00 77 09/16/19 16:00 30 09/16/19 16:00 99.3 119 24 143/81 (101) 100 09/16/19 15:25 79 18 30 09/16/19 14:05 159/76 09/16/19 13:56 81 18 30 09/16/19 12:00 80 09/16/19 12:00 30 09/16/19 12:00 97.3 81 20 159/76 (103) 96 09/16/19 12:00 Mechanical Ventilator Mechanical Ventilator Mechanical Ventilator Mechanical Ventilator 09/16/19 11:11 88 18 30 09/16/19 09:16 76 147/73 09/16/19 08:25 81 19 100 Mechanical Ventilator 30 84 17 30 09/16/19 08:01 75 09/16/19 08:01 Mechanical Ventilator Mechanical Ventilator Mechanical Ventilator Mechanical Ventilator 09/16/19 08:00 97.3 76 20 142/73 (96) 95 09/16/19 08:00 30 Intake and Output 09/16/19 09/17/19 19:00 07:00 Intake Total 860 ml 550 ml Output Total 201 ml Balance 659 ml 550 ml Intake Free Water 200 ml 100 ml Tube Feeding 420 ml 350 ml Other 240 ml 100 ml Output Urine Total 200 ml Stool Total 1 ml # Bowel Movements 2 2 Height (Feet): 5 Height (Inches): 4.00 Weight (Pounds): 112 General Appearance: alert EENT: normal ENT inspection Neck: supple Cardiovascular: normal rate Respiratory/Chest: decreased breath sounds Abdomen: normal bowel sounds, non tender, soft Extremities: non-tender Kenny Rudolph MD Sep 17, 2019 07:38
[2019-09-17 08:00] VITALS: BP 151/79
--- NOTE | 2019-09-17 08:03 | General Progress Note ---
Assessment/Plan Problem List: (1) Hypothyroid ICD Codes: E03.9 - Hypothyroidism, unspecified SNOMED: 40051601 (2) ESRD (end stage renal disease) on dialysis ICD Codes: N18.6 - End stage renal disease; Z99.2 - Dependence on renal dialysis SNOMED: 489438530 (3) Hypotension ICD Codes: I95.9 - Hypotension, unspecified SNOMED: 20704835 Qualifiers: Qualified Codes: I95.3 - Hypotension of hemodialysis (4) Pneumonia ICD Codes: J18.9 - Pneumonia, unspecified organism SNOMED: 958074352 Qualifiers: Qualified Codes: J18.9 - Pneumonia, unspecified organism (5) Diabetes mellitus ICD Codes: E11.9 - Type 2 diabetes mellitus without complications SNOMED: 81967747 Status: stable, not improved, unchanged, deteriorating Assessment/Plan: TSH normalized - he was treated with Levothyroxine IV 50 mcg for couple of weeks - continue Levothyroxine tablet dose to 100 mcg daily - repeat TSH, free 4 in one week continue glucose monitoring without insulin coverage hypoglycemia protocol in order Subjective ROS Limited/Unobtainable: Yes Allergies: Coded Allergies: VANCOMYCIN (Unverified Allergy, Unknown, 08/02/19) Subjective events noted interval notes reviewed single episode of hypoglycemia yesterday Item Value Date Time Bedside Blood Glucose 101 mg/dl 09/17/19 0600 Bedside Blood Glucose 99 mg/dl 09/17/19 0000 Bedside Blood Glucose 67 mg/dl L 09/16/19 1800 Bedside Blood Glucose 95 mg/dl 09/16/19 1200 Objective Last 24 Hour Vital Signs Date Time Temp Pulse Resp B/P (MAP) Pulse Ox O2 Delivery O2 Flow Rate FiO2 09/17/19 07:13 65 19 100 Mechanical Ventilator 30 68 18 30 09/17/19 06:41 157/62 09/17/19 05:19 69 18 30 09/17/19 04:00 97.5 69 20 157/62 (93) 98 09/17/19 04:00 Mechanical Ventilator Mechanical Ventilator Mechanical Ventilator Mechanical Ventilator 09/17/19 04:00 30 09/17/19 03:53 73 09/17/19 03:19 68 18 100 Mechanical Ventilator 30 72 19 30 09/17/19 00:50 64 18 30 09/17/19 00:00 96.3 66 18 143/92 (109) 98 09/17/19 00:00 Mechanical Ventilator Mechanical Ventilator Mechanical Ventilator Mechanical Ventilator 09/17/19 00:00 72 09/16/19 23:23 138/80 09/16/19 22:58 65 18 30 09/16/19 20:51 65 18 30 09/16/19 20:00 97.2 76 18 138/80 (99) 95 09/16/19 20:00 76 09/16/19 20:00 30 09/16/19 20:00 Mechanical Ventilator Mechanical Ventilator Mechanical Ventilator Mechanical Ventilator 09/16/19 19:02 68 18 30 09/16/19 18:26 78 143/81 09/16/19 18:26 143/81 09/16/19 16:30 78 18 30 09/16/19 16:00 Mechanical Ventilator Mechanical Ventilator Mechanical Ventilator Mechanical Ventilator 09/16/19 16:00 77 09/16/19 16:00 30 09/16/19 16:00 99.3 119 24 143/81 (101) 100 09/16/19 15:25 79 18 30 09/16/19 14:05 159/76 09/16/19 13:56 81 18 30 09/16/19 12:00 80 09/16/19 12:00 30 09/16/19 12:00 97.3 81 20 159/76 (103) 96 09/16/19 12:00 Mechanical Ventilator Mechanical Ventilator Mechanical Ventilator Mechanical Ventilator 09/16/19 11:11 88 18 30 09/16/19 09:16 76 147/73 09/16/19 08:25 81 19 100 Mechanical Ventilator 30 84 17 30 Intake and Output 09/16/19 09/17/19 19:00 07:00 Intake Total 860 ml 550 ml Output Total 201 ml 150 ml Balance 659 ml 400 ml Intake Free Water 200 ml 100 ml Tube Feeding 420 ml 350 ml Other 240 ml 100 ml Output Urine Total 200 ml 150 ml Stool Total 1 ml # Bowel Movements 2 2 Height (Feet): 5 Height (Inches): 4.00 Weight (Pounds): 112 EENT: other - tracheostomy Cardiovascular: normal rate Respiratory/Chest: lungs clear Abdomen: normal bowel sounds Objective Current Medications Medications (Trade) Dose Ordered Sig/Javier Route PRN Reason Start Time Stop Time Status Last Admin Dose Admin Acetaminophen (Tylenol) 650 mg Q4H PRN GT Mild Pain/Temp > 100.5 09/03/19 07:00 10/03/19 06:59 09/09/19 06:13 Acetylcysteine (Mucomyst) 100 mg Q4HRT N 08/31/19 19:00 11/29/19 18:59 09/17/19 07:21 Albuterol/ Ipratropium (Albuterol/ Ipratropium) 3 ml Q4HRT [facility] 09/17/19 03:00 09/22/19 02:59 09/17/19 07:21 Amlodipine Besylate (Norvasc) 5 mg BID NG 08/23/19 01:45 09/22/19 01:44 09/16/19 18:26 Dextrose (Dextrose 50%) 25 ml Q30M PRN IV Hypoglycemia 09/02/19 06:15 12/01/19 06:14 09/04/19 12:11 Dextrose (Dextrose 50%) 50 ml Q30M PRN IV Hypoglycemia 09/02/19 06:15 12/01/19 06:14 Hydralazine HCl (Apresoline) 10 mg Q4H PRN IV For High Blood Pressure 08/18/19 12:44 09/17/19 12:43 09/01/19 20:27 Hydralazine HCl (Apresoline) 25 mg Q6HR NG 08/23/19 06:00 09/22/19 05:59 09/17/19 06:41 Lansoprazole (Prevacid) 30 mg BID GT 08/19/19 09:00 09/18/19 08:59 09/16/19 18:25 Levothyroxine Sodium (Synthroid) 100 mcg DAILY@0630 ORAL 09/14/19 06:30 09/24/19 06:29 09/17/19 06:41 Antonio Jacome MD Sep 17, 2019 08:03
--- NOTE | 2019-09-17 10:50 | General Progress Note ---
Assessment/Plan Problem List: (1) Failure to thrive (0-17) ICD Codes: R62.51 - Failure to thrive (0-17) SNOMED: 730445333 (2) Hypertensive kidney disease ICD Codes: I12.9 - Hypertensive chronic kidney disease with stage 1 through stage 4 chronic kidney disease, or unspecified chronic kidney disease SNOMED: 20027193 (3) Pneumonia ICD Codes: J18.9 - Pneumonia, unspecified organism SNOMED: 222160845 Qualifiers: Qualified Codes: J18.9 - Pneumonia, unspecified organism (4) ESRD (end stage renal disease) ICD Codes: N18.6 - End stage renal disease SNOMED: 31987535 (5) Septic arthritis ICD Codes: M00.9 - Pyogenic arthritis, unspecified SNOMED: 469506970 (6) Thrombocytopenia ICD Codes: D69.6 - Thrombocytopenia, unspecified SNOMED: 262890497 (7) Hypotension ICD Codes: I95.9 - Hypotension, unspecified SNOMED: 65798784 Qualifiers: Qualified Codes: I95.3 - Hypotension of hemodialysis (8) Malnutrition ICD Codes: E46 - Unspecified protein-calorie malnutrition SNOMED: 58790278 Status: stable, not improved, unchanged, deteriorating Assessment/Plan: Continue vent support. Wean as able. Suctioning and pulmonary toilet. Continue G-tube feedings. Monitor residuals Continue current blood pressure regimen with close monitoring of blood pressure. Hemodialysis with ultrafiltration per nephrology. Turn every 2 hours and good skin care. monitor labs Discharge planning in progress Subjective ROS Limited/Unobtainable: Yes Constitutional: Reports: malaise, weakness HEENT: Reports: no symptoms Cardiovascular: Reports: no symptoms Respiratory: Reports: SOB at rest, sputum Gastrointestinal/Abdominal: Reports: difficulty swallowing Neurologic/Psychiatric: Reports: pre-existing deficit Endocrine: Reports: no symptoms Hematologic/Lymphatic: Reports: anemia Allergies: Coded Allergies: VANCOMYCIN (Unverified Allergy, Unknown, 08/02/19) All Systems: reviewed and negative except above Subjective There were no overnight events. Patient remained stable on the ventilator. She occasionally opens her eyes. Tolerating feedings. No recent labs noted. Case management is currently trying to locate an accepting jail facility or long-term acute care facility. Objective Last 24 Hour Vital Signs Date Time Temp Pulse Resp B/P (MAP) Pulse Ox O2 Delivery O2 Flow Rate FiO2 4/4/20 09:50 168 93/66 09/17/19 09:50 65 20 30 09/17/19 08:00 96.4 67 18 151/79 (103) 99 09/17/19 08:00 30 09/17/19 07:13 65 19 100 Mechanical Ventilator 30 68 18 30 09/17/19 06:41 157/62 09/17/19 05:19 69 18 30 09/17/19 04:00 97.5 69 20 157/62 (93) 98 09/17/19 04:00 Mechanical Ventilator Mechanical Ventilator Mechanical Ventilator Mechanical Ventilator 09/17/19 04:00 30 09/17/19 03:53 73 09/17/19 03:19 68 18 100 Mechanical Ventilator 30 72 19 30 09/17/19 00:50 64 18 30 09/17/19 00:00 96.3 66 18 143/92 (109) 98 09/17/19 00:00 Mechanical Ventilator Mechanical Ventilator Mechanical Ventilator Mechanical Ventilator 09/17/19 00:00 72 09/16/19 23:23 138/80 09/16/19 22:58 65 18 30 09/16/19 20:51 65 18 30 09/16/19 20:00 97.2 76 18 138/80 (99) 95 09/16/19 20:00 76 09/16/19 20:00 30 09/16/19 20:00 Mechanical Ventilator Mechanical Ventilator Mechanical Ventilator Mechanical Ventilator 09/16/19 19:02 68 18 30 09/16/19 18:26 78 143/81 09/16/19 18:26 143/81 09/16/19 16:30 78 18 30 09/16/19 16:00 Mechanical Ventilator Mechanical Ventilator Mechanical Ventilator Mechanical Ventilator 09/16/19 16:00 77 09/16/19 16:00 30 09/16/19 16:00 99.3 119 24 143/81 (101) 100 09/16/19 15:25 79 18 30 09/16/19 14:05 159/76 09/16/19 13:56 81 18 30 09/16/19 12:00 80 09/16/19 12:00 30 09/16/19 12:00 97.3 81 20 159/76 (103) 96 09/16/19 12:00 Mechanical Ventilator Mechanical Ventilator Mechanical Ventilator Mechanical Ventilator 09/16/19 11:11 88 18 30 Intake and Output 09/16/19 09/17/19 19:00 07:00 Intake Total 860 ml 550 ml Output Total 201 ml 150 ml Balance 659 ml 400 ml Intake Free Water 200 ml 100 ml Tube Feeding 420 ml 350 ml Other 240 ml 100 ml Output Urine Total 200 ml 150 ml Stool Total 1 ml # Bowel Movements 2 2 Height (Feet): 5 Height (Inches): 4.00 Weight (Pounds): 112 Objective General Appearance: WD/WN, awake. looks around. no distress. thin and frail Neck: supple +trach Cardiovascular: normal rate Respiratory/Chest: rhonchi - bilaterally Abdomen: normal bowel sounds, non tender, soft, no organomegaly Edema: no edema noted Arm (L), no edema noted Arm (R), no edema noted Leg (L), no edema noted Leg (R), no edema noted Pedal (L), no edema noted Pedal (R), no edema noted Generalized Neurologic: disoriented, aphasia Skin: +excoriations Nate Beltran MD Sep 17, 2019 10:50
--- NOTE | 2019-09-17 11:03 | Nephrology Progress Note ---
Assessment/Plan Problem List: (1) ESRD (end stage renal disease) on dialysis (2) Malnutrition (3) Anemia in CKD (chronic kidney disease) (4) Hypotension (5) Thrombocytopenia (6) Sepsis Assessment: klebsiella in blood Assessment -Early sepsis with shock. -Healthcare-associated pneumonia. -Severe protein-calorie malnutrition. -Thrombocytopenia. - End-stage renal disease. - History of hypertension. - Bradycardia. - HypoThyroid Plan Tracheostomy September 07 Last dialysis September 12, next dialysis scheduled for September 16 Chest tube on the left side was put in on September 01 was discontinued September 07 Patient transfused 3 units of packed RBCs for low hemoglobin Remains full code Blood pressure fluctuating, will start hydralazine via NG tube for blood pressure Magnesium and potassium supplement intravenously as needed Patient underwent PEG placement August 16 patient remains intubated on ventilator Discussed with RN Aim to wean from ventilator or consider tracheostomy Permacath was removed on August 12 Dialysis 08/11 Transfusion as needed Patient had hematemesis meds IV as possible Surveillance blood cultures tomorrow Plan to put the permacath back in on Thursday if cultures are negative keep BP and BS in check Inflammatory markers per orders Subjective ROS Limited/Unobtainable: Yes Objective Objective Last 24 Hour Vital Signs Date Time Temp Pulse Resp B/P (MAP) Pulse Ox O2 Delivery O2 Flow Rate FiO2 09/17/19 10:52 61 18 100 Mechanical Ventilator 30 62 20 30 09/17/19 09:50 168 93/66 09/17/19 09:50 65 20 30 09/17/19 08:00 96.4 67 18 151/79 (103) 99 09/17/19 08:00 30 09/17/19 08:00 Mechanical Ventilator Mechanical Ventilator Mechanical Ventilator Mechanical Ventilator 09/17/19 07:47 70 09/17/19 07:13 65 19 100 Mechanical Ventilator 30 68 18 30 09/17/19 06:41 157/62 09/17/19 05:19 69 18 30 09/17/19 04:00 97.5 69 20 157/62 (93) 98 09/17/19 04:00 Mechanical Ventilator Mechanical Ventilator Mechanical Ventilator Mechanical Ventilator 09/17/19 04:00 30 09/17/19 03:53 73 09/17/19 03:19 68 18 100 Mechanical Ventilator 30 72 19 30 09/17/19 00:50 64 18 30 09/17/19 00:00 96.3 66 18 143/92 (109) 98 09/17/19 00:00 Mechanical Ventilator Mechanical Ventilator Mechanical Ventilator Mechanical Ventilator 09/17/19 00:00 72 09/16/19 23:23 138/80 09/16/19 22:58 65 18 30 09/16/19 20:51 65 18 30 09/16/19 20:00 97.2 76 18 138/80 (99) 95 09/16/19 20:00 76 09/16/19 20:00 30 09/16/19 20:00 Mechanical Ventilator Mechanical Ventilator Mechanical Ventilator Mechanical Ventilator 09/16/19 19:02 68 18 30 09/16/19 18:26 78 143/81 09/16/19 18:26 143/81 09/16/19 16:30 78 18 30 09/16/19 16:00 Mechanical Ventilator Mechanical Ventilator Mechanical Ventilator Mechanical Ventilator 09/16/19 16:00 77 09/16/19 16:00 30 09/16/19 16:00 99.3 119 24 143/81 (101) 100 09/16/19 15:25 79 18 30 09/16/19 14:05 159/76 09/16/19 13:56 81 18 30 09/16/19 12:00 80 09/16/19 12:00 30 09/16/19 12:00 97.3 81 20 159/76 (103) 96 09/16/19 12:00 Mechanical Ventilator Mechanical Ventilator Mechanical Ventilator Mechanical Ventilator 09/16/19 11:11 88 18 30 Intake and Output 09/16/19 09/17/19 19:00 07:00 Intake Total 860 ml 550 ml Output Total 201 ml 150 ml Balance 659 ml 400 ml Intake Free Water 200 ml 100 ml Tube Feeding 420 ml 350 ml Other 240 ml 100 ml Output Urine Total 200 ml 150 ml Stool Total 1 ml # Bowel Movements 2 2 Height (Feet): 5 Height (Inches): 4.00 Weight (Pounds): 112 General Appearance: no apparent distress EENT: other - Trach to vent Cardiovascular: other - Fluctuating heart rate Respiratory/Chest: decreased breath sounds Abdomen: other - GT in place Objective no change William Blackwood MD Sep 17, 2019 11:03
[2019-09-17 12:00] VITALS: BP 145/77
--- NOTE | 2019-09-17 14:53 | Surgery Progress Note ---
Surgery Progress Note Subjective Procedure Performed 1. tracheostomy 2 removal of left tube thoracostomy Additional Comments ill appearing receiving HD during exam on vent support Objective Last 24 Hour Vital Signs Date Time Temp Pulse Resp B/P (MAP) Pulse Ox O2 Delivery O2 Flow Rate FiO2 09/17/19 13:34 70 18 30 09/17/19 12:00 Mechanical Ventilator Mechanical Ventilator Mechanical Ventilator Mechanical Ventilator 09/17/19 12:00 96.3 66 18 145/77 (99) 99 09/17/19 12:00 145/77 09/17/19 12:00 30 09/17/19 11:39 67 09/17/19 10:52 61 18 100 Mechanical Ventilator 30 62 20 30 09/17/19 09:50 168 93/66 09/17/19 09:50 65 20 30 09/17/19 08:00 96.4 67 18 151/79 (103) 99 09/17/19 08:00 30 09/17/19 08:00 Mechanical Ventilator Mechanical Ventilator Mechanical Ventilator Mechanical Ventilator 09/17/19 07:47 70 09/17/19 07:13 65 19 100 Mechanical Ventilator 30 68 18 30 09/17/19 06:41 157/62 09/17/19 05:19 69 18 30 09/17/19 04:00 97.5 69 20 157/62 (93) 98 09/17/19 04:00 Mechanical Ventilator Mechanical Ventilator Mechanical Ventilator Mechanical Ventilator 09/17/19 04:00 30 09/17/19 03:53 73 09/17/19 03:19 68 18 100 Mechanical Ventilator 30 72 19 30 09/17/19 00:50 64 18 30 09/17/19 00:00 96.3 66 18 143/92 (109) 98 09/17/19 00:00 Mechanical Ventilator Mechanical Ventilator Mechanical Ventilator Mechanical Ventilator 09/17/19 00:00 72 09/16/19 23:23 138/80 09/16/19 22:58 65 18 30 09/16/19 20:51 65 18 30 09/16/19 20:00 97.2 76 18 138/80 (99) 95 09/16/19 20:00 76 09/16/19 20:00 30 09/16/19 20:00 Mechanical Ventilator Mechanical Ventilator Mechanical Ventilator Mechanical Ventilator 09/16/19 19:02 68 18 30 09/16/19 18:26 78 143/81 09/16/19 18:26 143/81 09/16/19 16:30 78 18 30 09/16/19 16:00 Mechanical Ventilator Mechanical Ventilator Mechanical Ventilator Mechanical Ventilator 09/16/19 16:00 77 09/16/19 16:00 30 09/16/19 16:00 99.3 119 24 143/81 (101) 100 09/16/19 15:25 79 18 30 I&O Intake and Output 09/16/19 09/17/19 19:00 07:00 Intake Total 860 ml 550 ml Output Total 201 ml 150 ml Balance 659 ml 400 ml Intake Free Water 200 ml 100 ml Tube Feeding 420 ml 350 ml Other 240 ml 100 ml Output Urine Total 200 ml 150 ml Stool Total 1 ml # Bowel Movements 2 2 Dressing: saturated Wound: other Drains: other Cardiovascular: RSR Respiratory: decreased breath sounds Abdomen: soft, non-tender, present bowel sounds Extremities: no edema, no tenderness, no cyanosis, other Assessment Post-op Diagnosis same Plan Problems: (1) Malnutrition Assessment & Plan: DAILY ESTIMATED NEEDS: Needs based on ESRD+ HD, underweight, wound/ 39.5kg 35-40 kcals/kg 2428-4572 total kcals 1.25-1.8 g protein/kg 49-71 g total protein 20-22 mL/kg 790-869 total fluid mLs NUTRITION DIAGNOSIS: * Increased kcal and protein needs r/t underweight status, HD needs, wuond healing as evidenced by pt is underweight per guidelines, ESRD, on HD, admitted non-blanching erythema wounds @ BL heels and sacrum * Swallowing difficulty R/T dysphagia as evidenced by BOBTAIL DRIVER recommends temporary nonoral feeding at this time, s/p NGT insertion, on NGT feeding-> now s/p self removal, NPO. CURRENT TF:NPO PO DIET RECOMMENDATIONS: WHEN SAFE FOR ORAL DIET -> renal/ texture per BOBTAIL DRIVER ENTERAL NUTRITION RECOMMENDATIONS: W/ GI access: Nepro @ 35ml/hr x 22 hrs to provide 770ml, 1386kcal, 62g prot, 560ml free water * W/ GI access, resume TF on Nepro * Initiate Nepro @ 15ml/hr x 6 hrs, advance 10ml q 4-6 hrs as tolerated to goal rate. * Hold 1 hour before and after Synthroid med * HOB over 30 degrees/ water flush per MD. ADDITIONAL RECOMMENDATIONS: 1) Calibrated bed scale wt for accurate CBW -> daily wt monitoring Per HD record: dry wt on 07/30=39.5kg (87lbs) 2) Wound care: (W/ GI access) add Nephorivte x 1 + Balta BID 3) Monitor NPO status: without GI access at this time, s/p pulling out NGT 4) Monitor for hypoglycemia while NPO 5) Monitor for continuity of HD (2) Septic arthritis Assessment & Plan: Pt presented on admission with generalized scaly rash . pt noted to be restless and scratching at skin. Bleeding from oral mucosa noted. Joint deformity noted to R shoulder. Surgical incision approximated with 11 sutures. Erythema but no exudate,or elevation in skin temp at site of incision. Historical incision R hip that is tunneled.Small amt seropurulent exudate noted. Periwound is erythematous,but no elevation in skin temp noted. No odor noted. Non-blanching erythema noted to sacrum. Perianal area is erythematous and excoriated. L heel is boggy with non-blanching erythema. R heel is soft with non-blanching erythema. No evidence of skin breakdown to all other bony prominences. Tx.plan: Cover R shoulder with Drsg and change daily and prn. Cleanse R hip wound with Saline. Apply Therahoney.Apply Cavilon Skin Barrier periwound. Cover with Optifoam drsg. Change every 3 days and prn. Apply Moisture Barrier Paste to perianal area and buttocks. Cover Sacrum with Optifoam drsg. Change every 3 days and prn. Apply Cavilon Skin Barrier to both heels. Cover each heel with Optifoam drsg. Change every 7 days and prn. APM/ELVIA Mattress overlay. Reposition at least every 2hours or as tolerated. Off-load heels with pillow. HD cath necessary HD as renal likely will need intubation (3) Wound, open, hip or thigh with complication Assessment & Plan: slow healing will need nutritional optimization difficult ng tube peg when stable sutures removed from right shoulder comfortable wean vent may need trach (4) Abscess of right hip (5) possible septic arthritis (6) Renal failure (ARF), acute on chronic Assessment & Plan: cont HD will need tunneled cath placement okay to use fem line for now but will need change soon. line monitored and clean dressings going well (7) Pneumonia Assessment & Plan: intubated on vent support not tolerating weaning may need trach hemothorax likely after thoracentesis Chest CT noted Left chest tube placed With plan for trach chest tube can be considered but overall prognosis is very poor s/p trach left chest tub eout cxr noted and okay downgrade left pleural effusion dressings saturated will need to monitor. may need another chest tube as may not heal well on left side Camilo James Sep 17, 2019 14:53
--- NOTE | 2019-09-17 15:20 | Pulmonology Progress Note ---
Assessment/Plan Assessment/Plan Pulmonary Progress Note Assessment/Plan respiratory failure, has tracheostomy Out of ICU hemoptysis resolved hypoxemia chronic renal failure toxic met encephalopathy severe protein calorie malnutrition cachexia left lung whiteout/collapse, improved with intubation, chest tube anemia CHF + pleural effusion worsening s/p CT placement and removal hypernatremia, Renal following PLAN trach care as is Continue current Ventilator settings monitor for change care noted and reviewed monitor for fluid retention; reviewed care and continue to monitor retry wean prognosis poor overall for change keep negative and monitor osmotic pressures fully dependent close follow up discussed elevated head and monitor ROM watch fluid status and keep negative nutrition and monitor residuals isolation reviewed off load as able and monitor skin exam ROM as able and monitor contractures impression, plan, and exam edited and reviewed in detail care discussed with slot floor person - Subjective ROS Limited/Unobtainable: Yes Condition: unchanged EKG Rhythm: Sinus Rhythm Residuals: minimal Tube Feeding Tolerated: yes Vital Signs Noted Labs Noted Objective: WDWN NAD trach in place reduced breath sounds left greater right; no rhonchi [id number] without MRG NABS nontender no HSM no CCE contractures feeding tube in place no distention reduced LOC and weak nonfocal cachectic reviewed and edited Subjective ROS Limited/Unobtainable: No Allergies: Coded Allergies: VANCOMYCIN (Unverified Allergy, Unknown, 08/02/19) Objective Last 24 Hour Vital Signs Date Time Temp Pulse Resp B/P (MAP) Pulse Ox O2 Delivery O2 Flow Rate FiO2 09/17/19 15:12 73 18 100 Mechanical Ventilator 30 74 19 30 09/17/19 13:34 70 18 30 09/17/19 12:00 Mechanical Ventilator Mechanical Ventilator Mechanical Ventilator Mechanical Ventilator 09/17/19 12:00 96.3 66 18 145/77 (99) 99 09/17/19 12:00 145/77 09/17/19 12:00 30 09/17/19 11:39 67 09/17/19 10:52 61 18 100 Mechanical Ventilator 30 62 20 30 09/17/19 09:50 168 93/66 09/17/19 09:50 65 20 30 09/17/19 08:00 96.4 67 18 151/79 (103) 99 09/17/19 08:00 30 09/17/19 08:00 Mechanical Ventilator Mechanical Ventilator Mechanical Ventilator Mechanical Ventilator 09/17/19 07:47 70 09/17/19 07:13 65 19 100 Mechanical Ventilator 30 68 18 30 09/17/19 06:41 157/62 09/17/19 05:19 69 18 30 09/17/19 04:00 97.5 69 20 157/62 (93) 98 09/17/19 04:00 Mechanical Ventilator Mechanical Ventilator Mechanical Ventilator Mechanical Ventilator 09/17/19 04:00 30 09/17/19 03:53 73 09/17/19 03:19 68 18 100 Mechanical Ventilator 30 72 19 30 09/17/19 00:50 64 18 30 09/17/19 00:00 96.3 66 18 143/92 (109) 98 09/17/19 00:00 Mechanical Ventilator Mechanical Ventilator Mechanical Ventilator Mechanical Ventilator 09/17/19 00:00 72 09/16/19 23:23 138/80 09/16/19 22:58 65 18 30 09/16/19 20:51 65 18 30 09/16/19 20:00 97.2 76 18 138/80 (99) 95 09/16/19 20:00 76 09/16/19 20:00 30 09/16/19 20:00 Mechanical Ventilator Mechanical Ventilator Mechanical Ventilator Mechanical Ventilator 09/16/19 19:02 68 18 30 09/16/19 18:26 78 143/81 09/16/19 18:26 143/81 09/16/19 16:30 78 18 30 09/16/19 16:00 Mechanical Ventilator Mechanical Ventilator Mechanical Ventilator Mechanical Ventilator 09/16/19 16:00 77 09/16/19 16:00 30 09/16/19 16:00 99.3 119 24 143/81 (101) 100 09/16/19 15:25 79 18 30 Intake and Output 09/16/19 09/17/19 19:00 07:00 Intake Total 860 ml 550 ml Output Total 201 ml 150 ml Balance 659 ml 400 ml Intake Free Water 200 ml 100 ml Tube Feeding 420 ml 350 ml Other 240 ml 100 ml Output Urine Total 200 ml 150 ml Stool Total 1 ml # Bowel Movements 2 2 Current Medications Medications (Trade) Dose Ordered Sig/Javier Route PRN Reason Start Time Stop Time Status Last Admin Dose Admin Acetaminophen (Tylenol) 650 mg Q4H PRN GT Mild Pain/Temp > 100.5 09/03/19 07:00 10/03/19 06:59 09/09/19 06:13 Acetylcysteine (Mucomyst) 100 mg Q4HRT N 08/31/19 19:00 11/29/19 18:59 09/17/19 15:14 Albuterol/ Ipratropium (Albuterol/ Ipratropium) [address] [facility] 09/17/19 03:00 09/22/19 02:59 09/17/19 15:14 Amlodipine Besylate (Norvasc) 5 mg BID NG 08/23/19 01:45 09/22/19 01:44 09/17/19 09:50 Chlorhexidine Gluconate (Nae-Hex 2%) 1 applic DAILY@1999 TOPIC 09/17/19 20:00 12/16/19 19:59 Dextrose (Dextrose 50%) 25 ml Q30M PRN IV Hypoglycemia 09/02/19 06:15 12/01/19 06:14 09/04/19 12:11 Dextrose (Dextrose 50%) 50 ml Q30M PRN IV Hypoglycemia 09/02/19 06:15 12/01/19 06:14 Hydralazine HCl (Apresoline) 25 mg Q6HR NG 08/23/19 06:00 09/22/19 05:59 09/17/19 06:41 Lansoprazole (Prevacid) 30 mg BID GT 08/19/19 09:00 09/18/19 08:59 09/17/19 09:50 Levothyroxine Sodium (Synthroid) 100 mcg DAILY@0630 ORAL 09/14/19 06:30 09/24/19 06:29 09/17/19 06:41 Abel Graham MD Sep 17, 2019 15:20
[2019-09-17 16:00] VITALS: BP 150/72
[2019-09-17 20:00] VITALS: BP 150/77
--- NOTE | 2019-09-17 21:15 | Progress Note ---
DATE: 09/17/2019 CARDIOLOGY PROGRESS NOTE SUBJECTIVE: The patient remains on ventilator support. Weaning efforts in progress. Monitored rhythm, sinus. OBJECTIVE: LUNGS: Coarse breath sounds. Few rhonchi. CARDIAC: Regular rhythm and rate. Normal S1 and S2. ABDOMEN: Soft. GJ tube site intact. EXTREMITIES: No edema. IMPRESSION: 1. Respiratory failure, status post trach. 2. End-stage renal disease. 3. Hypertensive heart disease. 4. ____ sinus node disease with stable cardiac rhythm. 5. Hypothyroidism corrected with replacement therapy. PLAN: 1. Respiratory therapy. 2. Weaning efforts. 3. Continue current cardiovascular regimen. 4. Looking hemodialysis with ultrafiltration. Abel Stubbs M.D. DR: CHANDU JOB#: [id number] CC:
[2019-09-17] MEDS: Dyna-Hex 2% Top Sol 2oz TOPIC SCH (21:26)
[2019-09-18] VITALS: BP 153/83
[2019-09-18] MEDS: HydrALAZINE 25mg tab NG SCH ×4 (00:43→17:31)
[2019-09-18] MEDS: Albuterol/Ipratropium 3ml neb HHN SCH ×6 (03:44→23:25)
[2019-09-18 04:00] VITALS: BP 147/77
[2019-09-18 08:00] VITALS: BP 153/67
--- NOTE | 2019-09-18 09:08 | General Progress Note ---
Assessment/Plan Problem List: (1) Hypothyroid ICD Codes: E03.9 - Hypothyroidism, unspecified SNOMED: 81394757 (2) ESRD (end stage renal disease) on dialysis ICD Codes: N18.6 - End stage renal disease; Z99.2 - Dependence on renal dialysis SNOMED: 606435564 (3) Hypotension ICD Codes: I95.9 - Hypotension, unspecified SNOMED: 37334407 Qualifiers: Qualified Codes: I95.3 - Hypotension of hemodialysis (4) Pneumonia ICD Codes: J18.9 - Pneumonia, unspecified organism SNOMED: 498401065 Qualifiers: Qualified Codes: J18.9 - Pneumonia, unspecified organism (5) Diabetes mellitus ICD Codes: E11.9 - Type 2 diabetes mellitus without complications SNOMED: 70258697 Status: stable, not improved, unchanged, deteriorating Assessment/Plan: TSH normalized - he was treated with Levothyroxine IV 50 mcg for couple of weeks - continue Levothyroxine tablet dose to 100 mcg daily - repeat TSH, free 4 in one week continue glucose monitoring without insulin coverage hypoglycemia protocol in order Subjective ROS Limited/Unobtainable: Yes Allergies: Coded Allergies: VANCOMYCIN (Unverified Allergy, Unknown, 08/02/19) Subjective events noted interval notes reviewed trach / vent low normal glucose without hypoglycemia Item Value Date Time Bedside Blood Glucose 92 mg/dl 09/18/19 0620 Bedside Blood Glucose 102 mg/dl 09/17/19 1800 Bedside Blood Glucose 95 mg/dl 09/17/19 1200 Objective Last 24 Hour Vital Signs Date Time Temp Pulse Resp B/P (MAP) Pulse Ox O2 Delivery O2 Flow Rate FiO2 09/18/19 08:44 100 09/18/19 08:42 68 16 09/18/19 08:35 67 19 30 09/18/19 07:00 65 18 100 Mechanical Ventilator 30 65 18 30 09/18/19 06:36 147/72 09/18/19 05:21 67 18 30 09/18/19 04:00 97.7 66 18 147/77 (100) 100 09/18/19 04:00 Mechanical Ventilator Mechanical Ventilator Mechanical Ventilator Mechanical Ventilator 09/18/19 04:00 30 09/18/19 03:46 67 09/18/19 03:42 73 18 100 30 75 19 30 09/18/19 01:06 72 18 30 09/18/19 00:43 157/83 4/5/20 00:00 Mechanical Ventilator Mechanical Ventilator Mechanical Ventilator Mechanical Ventilator 09/18/19 00:00 70 09/18/19 00:00 97.9 72 18 153/83 (106) 100 09/18/19 00:00 30 09/17/19 23:30 70 19 100 Mechanical Ventilator 30 73 19 30 09/17/19 21:39 72 18 30 09/17/19 20:01 70 09/17/19 20:00 Mechanical Ventilator Mechanical Ventilator Mechanical Ventilator Mechanical Ventilator 09/17/19 20:00 97.3 72 20 150/77 (101) 91 09/17/19 19:20 69 18 100 Mechanical Ventilator 30 72 19 30 09/17/19 18:44 143/75 09/17/19 18:43 69 143/75 09/17/19 16:53 77 18 30 09/17/19 16:00 Mechanical Ventilator Mechanical Ventilator Mechanical Ventilator Mechanical Ventilator 09/17/19 16:00 30 09/17/19 16:00 97.5 70 18 150/72 (98) 99 09/17/19 15:38 67 09/17/19 15:12 73 18 100 Mechanical Ventilator 30 74 19 30 09/17/19 13:34 70 18 30 09/17/19 12:00 Mechanical Ventilator Mechanical Ventilator Mechanical Ventilator Mechanical Ventilator 09/17/19 12:00 96.3 66 18 145/77 (99) 99 09/17/19 12:00 145/77 09/17/19 12:00 30 09/17/19 11:39 67 09/17/19 10:52 61 18 100 Mechanical Ventilator 30 62 20 30 09/17/19 09:50 168 93/66 09/17/19 09:50 65 20 30 Intake and Output 09/17/19 09/18/19 19:00 07:00 Intake Total 610 ml 550 ml Output Total 1175 ml 150 ml Balance -565 ml 400 ml Intake Free Water 30 ml 200 ml IV Total 100 ml Tube Feeding 420 ml 350 ml Other 60 ml Output Urine Total 175 ml 150 ml Hemodialysis UF 1000 ml # Bowel Movements 1 2 Height (Feet): 5 Height (Inches): 4.00 Weight (Pounds): 112 General Appearance: other - on vent EENT: other - tracheostomy Cardiovascular: normal rate Respiratory/Chest: rhonchi - bilaterally Abdomen: normal bowel sounds Pelvis: normal external exam Objective Current Medications Medications (Trade) Dose Ordered Sig/Javier Route PRN Reason Start Time Stop Time Status Last Admin Dose Admin Acetaminophen (Tylenol) 650 mg Q4H PRN GT Mild Pain/Temp > 100.5 09/03/19 07:00 10/03/19 06:59 09/09/19 06:13 Acetylcysteine (Mucomyst) 100 mg Q4HRT N 08/31/19 19:00 11/29/19 18:59 09/18/19 08:02 Albuterol/ Ipratropium (Albuterol/ Ipratropium) 3 ml Q4HRT N 09/17/19 03:00 09/22/19 02:59 09/18/19 08:01 Amlodipine Besylate (Norvasc) 5 mg BID NG 08/23/19 01:45 09/22/19 01:44 09/17/19 18:43 Chlorhexidine Gluconate (Nae-Hex 2%) 1 applic DAILY@1999 TOPIC 09/17/19 20:00 12/16/19 19:59 09/17/19 21:26 Dextrose (Dextrose 50%) 25 ml Q30M PRN IV Hypoglycemia 09/02/19 06:15 12/01/19 06:14 09/04/19 12:11 Dextrose (Dextrose 50%) 50 ml Q30M PRN IV Hypoglycemia 09/02/19 06:15 12/01/19 06:14 Hydralazine HCl (Apresoline) 25 mg Q6HR NG 08/23/19 06:00 09/22/19 05:59 09/18/19 06:36 Levothyroxine Sodium (Synthroid) 100 mcg DAILY@0630 ORAL 09/14/19 06:30 09/24/19 06:29 09/18/19 06:36 Antonio Jacome MD Sep 18, 2019 09:08
--- NOTE | 2019-09-18 10:23 | General Progress Note ---
Assessment/Plan Status: stable, not improved, unchanged, deteriorating Assessment/Plan: Assessment/Plan Status: stable, not improved, unchanged, deteriorating Assessment/Plan: Assessment - Severe ulcerative esophagitis on endoscopy - on BID PPI - Resp failure - thrombocytopenia --> resolved - Renal failure - aspiration risk --> s/p PEG - anemia - bradycardia - Poor prognosis Recommendations - TF - s/p blood transfusion -fu H&H and transfuse prn - elevate HOB - monitor H&H -s/p Chest tube placement - poor prognosis Subjective Allergies: Coded Allergies: VANCOMYCIN (Unverified Allergy, Unknown, 08/02/19) Subjective s/p blood transfusion Objective Last 24 Hour Vital Signs Date Time Temp Pulse Resp B/P (MAP) Pulse Ox O2 Delivery O2 Flow Rate FiO2 09/18/19 09:27 65 153/67 09/18/19 08:44 100 09/18/19 08:42 68 16 09/18/19 08:35 67 19 30 09/18/19 07:00 65 18 100 Mechanical Ventilator 30 65 18 30 09/18/19 06:36 147/72 09/18/19 05:21 67 18 30 09/18/19 04:00 97.7 66 18 147/77 (100) 100 09/18/19 04:00 Mechanical Ventilator Mechanical Ventilator Mechanical Ventilator Mechanical Ventilator 09/18/19 04:00 30 09/18/19 03:46 67 09/18/19 03:42 73 18 100 30 75 19 30 09/18/19 01:06 72 18 30 09/18/19 00:43 157/83 09/18/19 00:00 Mechanical Ventilator Mechanical Ventilator Mechanical Ventilator Mechanical Ventilator 09/18/19 00:00 70 09/18/19 00:00 97.9 72 18 153/83 (106) 100 09/18/19 00:00 30 09/17/19 23:30 70 19 100 Mechanical Ventilator 30 73 19 30 09/17/19 21:39 72 18 30 09/17/19 20:01 70 09/17/19 20:00 Mechanical Ventilator Mechanical Ventilator Mechanical Ventilator Mechanical Ventilator 09/17/19 20:00 97.3 72 20 150/77 (101) 91 09/17/19 19:20 69 18 100 Mechanical Ventilator 30 72 19 30 09/17/19 18:44 143/75 09/17/19 18:43 69 143/75 09/17/19 16:53 77 18 30 09/17/19 16:00 Mechanical Ventilator Mechanical Ventilator Mechanical Ventilator Mechanical Ventilator 09/17/19 16:00 30 09/17/19 16:00 97.5 70 18 150/72 (98) 99 09/17/19 15:38 67 09/17/19 15:12 73 18 100 Mechanical Ventilator 30 74 19 30 09/17/19 13:34 70 18 30 09/17/19 12:00 Mechanical Ventilator Mechanical Ventilator Mechanical Ventilator Mechanical Ventilator 09/17/19 12:00 96.3 66 18 145/77 (99) 99 09/17/19 12:00 145/77 09/17/19 12:00 30 09/17/19 11:39 67 09/17/19 10:52 61 18 100 Mechanical Ventilator 30 62 20 30 Intake and Output 09/17/19 09/18/19 19:00 07:00 Intake Total 610 ml 550 ml Output Total 1175 ml 150 ml Balance -565 ml 400 ml Intake Free Water 30 ml 200 ml IV Total 100 ml Tube Feeding 420 ml 350 ml Other 60 ml Output Urine Total 175 ml 150 ml Hemodialysis UF 1000 ml # Bowel Movements 1 2 Height (Feet): 5 Height (Inches): 4.00 Weight (Pounds): 112 General Appearance: no apparent distress EENT: normal ENT inspection Neck: supple Cardiovascular: normal rate Respiratory/Chest: decreased breath sounds Abdomen: normal bowel sounds, non tender, soft Extremities: non-tender Kenny Rudolph MD Sep 18, 2019 10:23
--- NOTE | 2019-09-18 10:39 | Nephrology Progress Note ---
Assessment/Plan Problem List: (1) ESRD (end stage renal disease) on dialysis (2) Malnutrition (3) Anemia in CKD (chronic kidney disease) (4) Hypotension (5) Thrombocytopenia (6) Sepsis Assessment: klebsiella in blood Assessment -Early sepsis with shock. -Healthcare-associated pneumonia. -Severe protein-calorie malnutrition. -Thrombocytopenia. - End-stage renal disease. - History of hypertension. - Bradycardia. - HypoThyroid Plan Will check lab tomorrow Tracheostomy September 07 Last dialysis September 12, next dialysis scheduled for September 16 Chest tube on the left side was put in on September 01 was discontinued September 07 Patient transfused 3 units of packed RBCs for low hemoglobin Remains full code Blood pressure fluctuating, will start hydralazine via NG tube for blood pressure Magnesium and potassium supplement intravenously as needed Patient underwent PEG placement August 16 patient remains intubated on ventilator Discussed with RN Aim to wean from ventilator or consider tracheostomy Permacath was removed on August 12 Dialysis 08/11 Transfusion as needed Patient had hematemesis meds IV as possible Surveillance blood cultures tomorrow Plan to put the permacath back in on Thursday if cultures are negative keep BP and BS in check Inflammatory markers per orders Subjective ROS Limited/Unobtainable: Yes Objective Objective Last 24 Hour Vital Signs Date Time Temp Pulse Resp B/P (MAP) Pulse Ox O2 Delivery O2 Flow Rate FiO2 09/18/19 09:27 65 153/67 09/18/19 08:44 100 09/18/19 08:42 68 16 09/18/19 08:35 67 19 30 09/18/19 08:00 Mechanical Ventilator Mechanical Ventilator Mechanical Ventilator Mechanical Ventilator 09/18/19 07:00 65 18 100 Mechanical Ventilator 30 65 18 30 09/18/19 06:36 147/72 09/18/19 05:21 67 18 30 09/18/19 04:00 97.7 66 18 147/77 (100) 100 09/18/19 04:00 Mechanical Ventilator Mechanical Ventilator Mechanical Ventilator Mechanical Ventilator 09/18/19 04:00 30 09/18/19 03:46 67 09/18/19 03:42 73 18 100 30 75 19 30 09/18/19 01:06 72 18 30 09/18/19 00:43 157/83 09/18/19 00:00 Mechanical Ventilator Mechanical Ventilator Mechanical Ventilator Mechanical Ventilator 09/18/19 00:00 70 09/18/19 00:00 97.9 72 18 153/83 (106) 100 09/18/19 00:00 30 09/17/19 23:30 70 19 100 Mechanical Ventilator 30 73 19 30 09/17/19 21:39 72 18 30 09/17/19 20:01 70 09/17/19 20:00 Mechanical Ventilator Mechanical Ventilator Mechanical Ventilator Mechanical Ventilator 09/17/19 20:00 97.3 72 20 150/77 (101) 91 09/17/19 19:20 69 18 100 Mechanical Ventilator 30 72 19 30 09/17/19 18:44 143/75 09/17/19 18:43 69 143/75 09/17/19 16:53 77 18 30 09/17/19 16:00 Mechanical Ventilator Mechanical Ventilator Mechanical Ventilator Mechanical Ventilator 09/17/19 16:00 30 09/17/19 16:00 97.5 70 18 150/72 (98) 99 09/17/19 15:38 67 09/17/19 15:12 73 18 100 Mechanical Ventilator 30 74 19 30 09/17/19 13:34 70 18 30 09/17/19 12:00 Mechanical Ventilator Mechanical Ventilator Mechanical Ventilator Mechanical Ventilator 09/17/19 12:00 96.3 66 18 145/77 (99) 99 09/17/19 12:00 145/77 09/17/19 12:00 30 09/17/19 11:39 67 09/17/19 10:52 61 18 100 Mechanical Ventilator 30 62 20 30 Intake and Output 09/17/19 09/18/19 19:00 07:00 Intake Total 610 ml 550 ml Output Total 1175 ml 150 ml Balance -565 ml 400 ml Intake Free Water 30 ml 200 ml IV Total 100 ml Tube Feeding 420 ml 350 ml Other 60 ml Output Urine Total 175 ml 150 ml Hemodialysis UF 1000 ml # Bowel Movements 1 2 No labs drawn today Height (Feet): 5 Height (Inches): 4.00 Weight (Pounds): 112 General Appearance: no apparent distress EENT: other - Trach to vent Respiratory/Chest: decreased breath sounds Abdomen: distended, other - PEG in place Objective no change William Blackwood MD Sep 18, 2019 10:39
--- NOTE | 2019-09-18 11:21 | General Progress Note ---
Assessment/Plan Problem List: (1) Failure to thrive (0-17) ICD Codes: R62.51 - Failure to thrive (0-17) SNOMED: 785864146 (2) Hypertensive kidney disease ICD Codes: I12.9 - Hypertensive chronic kidney disease with stage 1 through stage 4 chronic kidney disease, or unspecified chronic kidney disease SNOMED: 71207957 (3) Pneumonia ICD Codes: J18.9 - Pneumonia, unspecified organism SNOMED: 673724548 Qualifiers: Qualified Codes: J18.9 - Pneumonia, unspecified organism (4) ESRD (end stage renal disease) ICD Codes: N18.6 - End stage renal disease SNOMED: 10950826 (5) Septic arthritis ICD Codes: M00.9 - Pyogenic arthritis, unspecified SNOMED: 665538221 (6) Thrombocytopenia ICD Codes: D69.6 - Thrombocytopenia, unspecified SNOMED: 974193873 (7) Hypotension ICD Codes: I95.9 - Hypotension, unspecified SNOMED: 42440413 Qualifiers: Qualified Codes: I95.3 - Hypotension of hemodialysis (8) Malnutrition ICD Codes: E46 - Unspecified protein-calorie malnutrition SNOMED: 06134687 Status: stable, not improved, unchanged, deteriorating Assessment/Plan: Continue vent support. Wean as able. Suctioning and pulmonary toilet. Continue G-tube feedings. Monitor residuals Continue current blood pressure regimen with close monitoring of blood pressure. Hemodialysis with ultrafiltration per nephrology. Turn every 2 hours and good skin care. monitor labs Discharge planning in progress Subjective ROS Limited/Unobtainable: No Constitutional: Reports: malaise, weakness HEENT: Reports: no symptoms Cardiovascular: Reports: no symptoms Respiratory: Reports: sputum Gastrointestinal/Abdominal: Reports: difficulty swallowing Genitourinary: Reports: no symptoms Neurologic/Psychiatric: Reports: no symptoms Endocrine: Reports: no symptoms Hematologic/Lymphatic: Reports: no symptoms Allergies: Coded Allergies: VANCOMYCIN (Unverified Allergy, Unknown, 08/02/19) All Systems: reviewed and negative except above Subjective There were no overnight events. Patient remained stable on the ventilator. She occasionally opens her eyes. Tolerating feedings. No recent labs noted. Case management is currently trying to locate an accepting chcf facility or long-term acute care facility. Objective Last 24 Hour Vital Signs Date Time Temp Pulse Resp B/P (MAP) Pulse Ox O2 Delivery O2 Flow Rate FiO2 09/18/19 09:27 65 153/67 09/18/19 08:44 100 09/18/19 08:42 68 16 09/18/19 08:35 67 19 30 09/18/19 08:00 30 09/18/19 08:00 98.1 74 18 153/67 (95) 100 09/18/19 08:00 Mechanical Ventilator Mechanical Ventilator Mechanical Ventilator Mechanical Ventilator 09/18/19 08:00 63 09/18/19 07:00 65 18 100 Mechanical Ventilator 30 65 18 30 09/18/19 06:36 147/72 09/18/19 05:21 67 18 30 09/18/19 04:00 97.7 66 18 147/77 (100) 100 09/18/19 04:00 Mechanical Ventilator Mechanical Ventilator Mechanical Ventilator Mechanical Ventilator 09/18/19 04:00 30 09/18/19 03:46 67 09/18/19 03:42 73 18 100 30 75 19 30 09/18/19 01:06 72 18 30 09/18/19 00:43 157/83 09/18/19 00:00 Mechanical Ventilator Mechanical Ventilator Mechanical Ventilator Mechanical Ventilator 09/18/19 00:00 70 09/18/19 00:00 97.9 72 18 153/83 (106) 100 09/18/19 00:00 30 09/17/19 23:30 70 19 100 Mechanical Ventilator 30 73 19 30 09/17/19 21:39 72 18 30 09/17/19 20:01 70 09/17/19 20:00 Mechanical Ventilator Mechanical Ventilator Mechanical Ventilator Mechanical Ventilator 09/17/19 20:00 97.3 72 20 150/77 (101) 91 09/17/19 19:20 69 18 100 Mechanical Ventilator 30 72 19 30 09/17/19 18:44 143/75 09/17/19 18:43 69 143/75 09/17/19 16:53 77 18 30 09/17/19 16:00 Mechanical Ventilator Mechanical Ventilator Mechanical Ventilator Mechanical Ventilator 09/17/19 16:00 30 09/17/19 16:00 97.5 70 18 150/72 (98) 99 09/17/19 15:38 67 09/17/19 15:12 73 18 100 Mechanical Ventilator 30 74 19 30 09/17/19 13:34 70 18 30 09/17/19 12:00 Mechanical Ventilator Mechanical Ventilator Mechanical Ventilator Mechanical Ventilator 09/17/19 12:00 96.3 66 18 145/77 (99) 99 09/17/19 12:00 145/77 09/17/19 12:00 30 09/17/19 11:39 67 Intake and Output 09/17/19 09/18/19 19:00 07:00 Intake Total 610 ml 550 ml Output Total 1175 ml 150 ml Balance -565 ml 400 ml Intake Free Water 30 ml 200 ml IV Total 100 ml Tube Feeding 420 ml 350 ml Other 60 ml Output Urine Total 175 ml 150 ml Hemodialysis UF 1000 ml # Bowel Movements 1 2 Height (Feet): 5 Height (Inches): 4.00 Weight (Pounds): 112 Objective General Appearance: WD/WN, awake. looks around. no distress. thin and frail Neck: supple +trach Cardiovascular: normal rate Respiratory/Chest: rhonchi - bilaterally Abdomen: normal bowel sounds, non tender, soft, no organomegaly Edema: no edema noted Arm (L), no edema noted Arm (R), no edema noted Leg (L), no edema noted Leg (R), no edema noted Pedal (L), no edema noted Pedal (R), no edema noted Generalized Neurologic: disoriented, aphasia Skin: +excoriations Nate Beltran MD Sep 18, 2019 11:21
[2019-09-18 12:00] VITALS: BP 137/70
--- NOTE | 2019-09-18 15:08 | Infectious Diseases Prog Note ---
Assessment/Plan Assessment/Plan A; 1. Hailee sepsis treated 2. Klebsiella sepsis , treated 3. Right shoulder septic arthritis, status post surgery. 4. Diabetes. 5. Hypertension. 6. Anemia 7. Thrombocytopenia improving 9. Atelectasis , left lung collapse 10. Pleural effusion, hemothorax 11. Ulcerative esophagitis PLAN: 1. Observe off antibiotic Subjective ROS Limited/Unobtainable: Yes Neurologic: Reports: confusion, other - on restraint Allergies: Coded Allergies: VANCOMYCIN (Unverified Allergy, Unknown, 08/02/19) Objective Vital Signs Last 24 Hour Vital Signs Date Time Temp Pulse Resp B/P (MAP) Pulse Ox O2 Delivery O2 Flow Rate FiO2 09/18/19 12:46 75 20 30 09/18/19 12:24 137/71 09/18/19 12:00 Mechanical Ventilator Mechanical Ventilator Mechanical Ventilator Mechanical Ventilator 09/18/19 12:00 72 09/18/19 12:00 30 09/18/19 12:00 97.8 67 18 137/70 (92) 100 09/18/19 11:29 62 18 100 Mechanical Ventilator 30 62 18 30 09/18/19 09:27 65 153/67 09/18/19 08:44 100 09/18/19 08:42 68 16 09/18/19 08:35 67 19 30 09/18/19 08:00 30 09/18/19 08:00 98.1 74 18 153/67 (95) 100 09/18/19 08:00 Mechanical Ventilator Mechanical Ventilator Mechanical Ventilator Mechanical Ventilator 09/18/19 08:00 63 09/18/19 07:00 65 18 100 Mechanical Ventilator 30 65 18 30 09/18/19 06:36 147/72 09/18/19 05:21 67 18 30 09/18/19 04:00 97.7 66 18 147/77 (100) 100 09/18/19 04:00 Mechanical Ventilator Mechanical Ventilator Mechanical Ventilator Mechanical Ventilator 09/18/19 04:00 30 09/18/19 03:46 67 09/18/19 03:42 73 18 100 30 75 19 30 09/18/19 01:06 72 18 30 09/18/19 00:43 157/83 09/18/19 00:00 Mechanical Ventilator Mechanical Ventilator Mechanical Ventilator Mechanical Ventilator 09/18/19 00:00 70 09/18/19 00:00 97.9 72 18 153/83 (106) 100 09/18/19 00:00 30 09/17/19 23:30 70 19 100 Mechanical Ventilator 30 73 19 30 09/17/19 21:39 72 18 30 09/17/19 20:01 70 09/17/19 20:00 Mechanical Ventilator Mechanical Ventilator Mechanical Ventilator Mechanical Ventilator 09/17/19 20:00 97.3 72 20 150/77 (101) 91 09/17/19 19:20 69 18 100 Mechanical Ventilator 30 72 19 30 09/17/19 18:44 143/75 09/17/19 18:43 69 143/75 09/17/19 16:53 77 18 30 09/17/19 16:00 Mechanical Ventilator Mechanical Ventilator Mechanical Ventilator Mechanical Ventilator 09/17/19 16:00 30 09/17/19 16:00 97.5 70 18 150/72 (98) 99 09/17/19 15:38 67 09/17/19 15:12 73 18 100 Mechanical Ventilator 30 74 19 30 Height (Feet): 5 Height (Inches): 4.00 Weight (Pounds): 112 General Appearance: no acute distress HEENT: mucous membranes moist, status post trach Respiratory/Chest: decreased breath sounds, other - on ventilator Cardiovascular: normal rate Abdomen: soft, non tender Extremities: other - hands edema Neurologic/Psychiatric: disoriented, other - opens eyes Current Medications Medications (Trade) Dose Ordered Sig/Javier Route PRN Reason Start Time Stop Time Status Last Admin Dose Admin Acetaminophen (Tylenol) 650 mg Q4H PRN GT Mild Pain/Temp > 100.5 09/03/19 07:00 10/03/19 06:59 09/09/19 06:13 Acetylcysteine (Mucomyst) 100 mg Q4HRT [facility] 08/31/19 19:00 11/29/19 18:59 09/18/19 11:33 Albuterol/ Ipratropium (Albuterol/ Ipratropium) 3 ml Q4HRT [facility] 09/17/19 03:00 09/22/19 02:59 09/18/19 11:33 Amlodipine Besylate (Norvasc) 5 mg BID NG 08/23/19 01:45 09/22/19 01:44 09/18/19 09:27 Chlorhexidine Gluconate (Nae-Hex 2%) 1 applic DAILY@1999 TOPIC 09/17/19 20:00 12/16/19 19:59 09/17/19 21:26 Dextrose (Dextrose 50%) 25 ml Q30M PRN IV Hypoglycemia 09/02/19 06:15 12/01/19 06:14 09/04/19 12:11 Dextrose (Dextrose 50%) 50 ml Q30M PRN IV Hypoglycemia 09/02/19 06:15 12/01/19 06:14 Hydralazine HCl (Apresoline) 25 mg Q6HR NG 08/23/19 06:00 09/22/19 05:59 09/18/19 12:24 Levothyroxine Sodium (Synthroid) 100 mcg DAILY@629 ORAL 09/14/19 06:30 09/24/19 06:29 09/18/19 06:36 Warren Parks MD Sep 18, 2019 15:08
[2019-09-18 16:00] VITALS: BP 153/67
--- NOTE | 2019-09-18 17:28 | Pulmonology Progress Note ---
Assessment/Plan Assessment/Plan Pulmonary Progress Note Assessment/Plan respiratory failure, s/p tracheostomy hemoptysis resolved hypoxemia chronic renal failure toxic met encephalopathy severe protein calorie malnutrition cachexia left lung whiteout/collapse, improved with intubation, chest tube anemia CHF + pleural effusion worsening s/p CT placement and removal hypernatremia, Renal following PLAN trach care as is Continue current Ventilator settings monitor for change care noted and reviewed monitor for fluid retention; reviewed care and continue to monitor retry wean prognosis poor overall for change keep negative and monitor osmotic pressures fully dependent close follow up discussed elevated head and monitor ROM watch fluid status and keep negative nutrition and monitor residuals isolation reviewed off load as able and monitor skin exam ROM as able and monitor contractures impression, plan, and exam edited and reviewed in detail care discussed with route rider - Subjective ROS Limited/Unobtainable: Yes Condition: unchanged EKG Rhythm: Sinus Rhythm Residuals: minimal Tube Feeding Tolerated: yes Vital Signs Noted Labs Noted Objective: WDWN NAD trach in place CTAB, no rhonchi [id number] without MRG NABS nontender no HSM no CCE contractures feeding tube in place no distention reduced LOC and weak nonfocal cachectic reviewed and edited Subjective ROS Limited/Unobtainable: No Allergies: Coded Allergies: VANCOMYCIN (Unverified Allergy, Unknown, 08/02/19) Objective Last 24 Hour Vital Signs Date Time Temp Pulse Resp B/P (MAP) Pulse Ox O2 Delivery O2 Flow Rate FiO2 09/18/19 16:48 60 18 30 09/18/19 16:00 98.1 74 18 153/67 (95) 100 09/18/19 16:00 Mechanical Ventilator Mechanical Ventilator Mechanical Ventilator Mechanical Ventilator 09/18/19 16:00 30 09/18/19 15:27 75 18 100 Mechanical Ventilator 30 78 18 30 09/18/19 12:46 75 20 30 09/18/19 12:24 137/71 09/18/19 12:00 Mechanical Ventilator Mechanical Ventilator Mechanical Ventilator Mechanical Ventilator 09/18/19 12:00 72 09/18/19 12:00 30 09/18/19 12:00 97.8 67 18 137/70 (92) 100 09/18/19 11:29 62 18 100 Mechanical Ventilator 30 62 18 30 09/18/19 09:27 65 153/67 09/18/19 08:44 100 09/18/19 08:42 68 16 09/18/19 08:35 67 19 30 09/18/19 08:00 30 09/18/19 08:00 98.1 74 18 153/67 (95) 100 09/18/19 08:00 Mechanical Ventilator Mechanical Ventilator Mechanical Ventilator Mechanical Ventilator 09/18/19 08:00 63 09/18/19 07:00 65 18 100 Mechanical Ventilator 30 65 18 30 09/18/19 06:36 147/72 09/18/19 05:21 67 18 30 09/18/19 04:00 97.7 66 18 147/77 (100) 100 09/18/19 04:00 Mechanical Ventilator Mechanical Ventilator Mechanical Ventilator Mechanical Ventilator 09/18/19 04:00 30 09/18/19 03:46 67 09/18/19 03:42 73 18 100 30 75 19 30 09/18/19 01:06 72 18 30 09/18/19 00:43 157/83 09/18/19 00:00 Mechanical Ventilator Mechanical Ventilator Mechanical Ventilator Mechanical Ventilator 09/18/19 00:00 70 09/18/19 00:00 97.9 72 18 153/83 (106) 100 09/18/19 00:00 30 09/17/19 23:30 70 19 100 Mechanical Ventilator 30 73 19 30 09/17/19 21:39 72 18 30 09/17/19 20:01 70 09/17/19 20:00 Mechanical Ventilator Mechanical Ventilator Mechanical Ventilator Mechanical Ventilator 09/17/19 20:00 97.3 72 20 150/77 (101) 91 09/17/19 19:20 69 18 100 Mechanical Ventilator 30 72 19 30 09/17/19 18:44 143/75 09/17/19 18:43 69 143/75 Intake and Output 09/17/19 09/18/19 19:00 07:00 Intake Total 610 ml 550 ml Output Total 1175 ml 150 ml Balance -565 ml 400 ml Intake Free Water 30 ml 200 ml IV Total 100 ml Tube Feeding 420 ml 350 ml Other 60 ml Output Urine Total 175 ml 150 ml Hemodialysis UF 1000 ml # Bowel Movements 1 2 Current Medications Medications (Trade) Dose Ordered Sig/Javier Route PRN Reason Start Time Stop Time Status Last Admin Dose Admin Acetaminophen (Tylenol) 650 mg Q4H PRN GT Mild Pain/Temp > 100.5 09/03/19 07:00 10/03/19 06:59 09/09/19 06:13 Acetylcysteine (Mucomyst) 100 mg Q4HRT N 08/31/19 19:00 11/29/19 18:59 09/18/19 15:29 Albuterol/ Ipratropium (Albuterol/ Ipratropium) 3 ml Q4HRT N 09/17/19 03:00 09/22/19 02:59 09/18/19 15:29 Amlodipine Besylate (Norvasc) 5 mg BID NG 08/23/19 01:45 09/22/19 01:44 09/18/19 09:27 Chlorhexidine Gluconate (Nae-Hex 2%) 1 applic DAILY@1999 TOPIC 09/17/19 20:00 12/16/19 19:59 09/17/19 21:26 Dextrose (Dextrose 50%) 25 ml Q30M PRN IV Hypoglycemia 09/02/19 06:15 12/01/19 06:14 09/04/19 12:11 Dextrose (Dextrose 50%) 50 ml Q30M PRN IV Hypoglycemia 09/02/19 06:15 12/01/19 06:14 Hydralazine HCl (Apresoline) 25 mg Q6HR NG 08/23/19 06:00 09/22/19 05:59 09/18/19 12:24 Levothyroxine Sodium (Synthroid) 100 mcg DAILY@0630 ORAL 09/14/19 06:30 09/24/19 06:29 09/18/19 06:36 Abel Graham MD Sep 18, 2019 17:27
--- NOTE | 2019-09-18 17:34 | Hematology/Onc Progress Note ---
Assessment/Plan Assessment/Plan # Thrombocytopenia - potential causes multifactorial, evaluate liver and viral etiologies to begin, in this case due to sepsis with septic shock also with cirrhosis and liver disease --> Hep panel and HIV ordered --> neg --> US abd to evaluate for cirrhosis and hsm ordered --> reviewed --> Peripheral smear ordered to evaluate for blasts /schistocytes --> none noted --> abx and other meds have been reviewed --> ok for ppx if plt >50k w/ either heparin or lovenox --> Transfuse if Plt < 20k and fever, or if Plt < 10k without fever --> okay for permacath change once plt better--> for 08/14 --> plt trend: 43-->83-->237k-->292-->341-->315-->388 -->444-->530-->252k-->344 # Anemia of chronic disease due to underlying chronic medical issues, multifactorial v Gi bleed --> Anemia workup has been ordered, rule out gi bleed --> No evidence of hemolysis is noted, peripheral smear has been reviewed. --> Hgb goal >7. Transfuse prn. --> Epogen has been started --> HOLD OFF IRON ferritin is >1000 --> Medications have been reviewed --> low threshold for gi evaluation in case has occult + --> hgb 9-->6.7-->9.2 -->10.5-->10.6 -->10.7-->10-->10.5-->9.8-->10.4-->9.5--> 3.6-->9.6-->9.7-->10-->10.3-->11 --> blood tx: 08/11, 08/31 --> CT Chest r/o hemothorax --> does show confirmation of a large left hemothorax. Complete atelectasis of the left lower lobe and partial left upper lobe atelectasis demonstrated. Mild rightward shift of the heart and mediastinum. # Sepsis with shock. --> abx as per id, recs noted --> pressors as needed # Healthcare-associated pneumonia. --> recs reviewed --> abx: jung/micafungin-->jung-->off --> 08/24 us chest: moderate left pleural effusion # Severe protein-calorie malnutrition. --> nutritional support # End-stage renal disease --> had as renal hd --> with permacath # History of hypertension. --> per cards, now with Bradycardia. # Resp failure s/p vent/trach # HypoThyroid # Ngt feedings # Dvt ppx scd's The timing of this note does not necessarily reflect the time of the patient was seen. Greatly appreciate consultation. Subjective Allergies: Coded Allergies: VANCOMYCIN (Unverified Allergy, Unknown, 08/02/19) Subjective 08/11: no bleeding or chills, labs reviewed, no major bleeding, plt less than 50k 08/12: icu, s/p blood, hgb improved to 9.2, 08/14: icu, pending consent for thora and permacath, labs reviewed 08/15: new permacath placed, no bleeding, for hd, plt much improved, started lovenox sq 08/16: ett to be adjusted, bp on high end, micafungin started, possible bronch 08/17: weaning as per pulm, no events otherwise, labs noted 08/18: no events no bleeding, remains confused on vent, for hd 08/20: icu, failed to wean, labs reviewed, jung 08/21: resting in bed, no overnight events, labs reviewed 08/22: awake, confused, restraints, no overnight events 08/23: no events, no bleeding, on ppi bid 08/24: icu, failed to wean, labs reviewed 08/25: no overnight events, us chest, restraints, afebrile 08/26 difficult in weaning, nad, seen by surg, pulm labs noted 08/27 awake on restraints, thoracentesis for am, labs reviewed 08/29 no bleeding, no night sweats, no major changes, on ppi bid 08/30 no major events, remains on vent, no bleeding, dw pcp 08/31 hgb dropped to 3.6, has been transfused with prbc, in icu, dw Rn, ct chest pend 09/01 no major events, no bleeding, labs noted, hgb remains low, hgb 9.6 09/03 lethargic, left chest tube dry/intact, off abx, vent 09/04 remains on a vent, synthroid, labs reviewed 09/05 awake and alert, no acute events, hgb 9.8, no new orders 09/06 no bleeding or chills, labs noted, no major events overnight, dw rn 09/07 no events, no night sweats, no bleeding, no fc, remains agitated in the am 09/08 remains in the icu, trach was done, on vent, abx off, on epo 09/10 transferred to sdu, restraints, vent, labs reviewed 09/11 tube feeds have been ongoing, no f/c, labs reviewed 09/12 no events, no bleeding, no night sweats, hgb 10 09/13 tsh is improved, remains confused, hgb is 11, no bleeding 09/14 no events, no bleeding, labs noted, vitals stable 09/15 confused, no acute events, restraints, dc planning 09/17 no new changes, no recent labs, placement pending Objective Objective Current Medications Medications (Trade) Dose Ordered Sig/Javier Route PRN Reason Start Time Stop Time Status Last Admin Dose Admin Acetaminophen (Tylenol) 650 mg Q4H PRN GT Mild Pain/Temp > 100.5 09/03/19 07:00 10/03/19 06:59 09/09/19 06:13 Acetylcysteine (Mucomyst) 100 mg Q4HRT N 08/31/19 19:00 11/29/19 18:59 09/18/19 15:29 Albuterol/ Ipratropium (Albuterol/ Ipratropium) 3 ml Q4HRT [facility] 09/17/19 03:00 09/22/19 02:59 09/18/19 15:29 Amlodipine Besylate (Norvasc) 5 mg BID NG 08/23/19 01:45 09/22/19 01:44 09/18/19 09:27 Chlorhexidine Gluconate (Nae-Hex 2%) 1 applic DAILY@1999 TOPIC 09/17/19 20:00 12/16/19 19:59 09/17/19 21:26 Dextrose (Dextrose 50%) 25 ml Q30M PRN IV Hypoglycemia 09/02/19 06:15 12/01/19 06:14 09/04/19 12:11 Dextrose (Dextrose 50%) 50 ml Q30M PRN IV Hypoglycemia 09/02/19 06:15 12/01/19 06:14 Hydralazine HCl (Apresoline) 25 mg Q6HR NG 08/23/19 06:00 09/22/19 05:59 09/18/19 12:24 Levothyroxine Sodium (Synthroid) 100 mcg DAILY@0630 ORAL 09/14/19 06:30 09/24/19 06:29 09/18/19 06:36 Last 24 Hour Vital Signs Date Time Temp Pulse Resp B/P (MAP) Pulse Ox O2 Delivery O2 Flow Rate FiO2 09/18/19 16:48 60 18 30 09/18/19 16:00 98.1 74 18 153/67 (95) 100 09/18/19 16:00 Mechanical Ventilator Mechanical Ventilator Mechanical Ventilator Mechanical Ventilator 09/18/19 16:00 30 09/18/19 15:27 75 18 100 Mechanical Ventilator 30 78 18 30 09/18/19 12:46 75 20 30 09/18/19 12:24 137/71 09/18/19 12:00 Mechanical Ventilator Mechanical Ventilator Mechanical Ventilator Mechanical Ventilator 09/18/19 12:00 72 09/18/19 12:00 30 09/18/19 12:00 97.8 67 18 137/70 (92) 100 09/18/19 11:29 62 18 100 Mechanical Ventilator 30 62 18 30 09/18/19 09:27 65 153/67 09/18/19 08:44 100 09/18/19 08:42 68 16 09/18/19 08:35 67 19 30 09/18/19 08:00 30 09/18/19 08:00 98.1 74 18 153/67 (95) 100 09/18/19 08:00 Mechanical Ventilator Mechanical Ventilator Mechanical Ventilator Mechanical Ventilator 09/18/19 08:00 63 09/18/19 07:00 65 18 100 Mechanical Ventilator 30 65 18 30 09/18/19 06:36 147/72 09/18/19 05:21 67 18 30 09/18/19 04:00 97.7 66 18 147/77 (100) 100 09/18/19 04:00 Mechanical Ventilator Mechanical Ventilator Mechanical Ventilator Mechanical Ventilator 09/18/19 04:00 30 09/18/19 03:46 67 09/18/19 03:42 73 18 100 30 75 19 30 09/18/19 01:06 72 18 30 09/18/19 00:43 157/83 09/18/19 00:00 Mechanical Ventilator Mechanical Ventilator Mechanical Ventilator Mechanical Ventilator 09/18/19 00:00 70 09/18/19 00:00 97.9 72 18 153/83 (106) 100 09/18/19 00:00 30 09/17/19 23:30 70 19 100 Mechanical Ventilator 30 73 19 30 09/17/19 21:39 72 18 30 09/17/19 20:01 70 09/17/19 20:00 Mechanical Ventilator Mechanical Ventilator Mechanical Ventilator Mechanical Ventilator 09/17/19 20:00 97.3 72 20 150/77 (101) 91 09/17/19 19:20 69 18 100 Mechanical Ventilator 30 72 19 30 09/17/19 18:44 143/75 09/17/19 18:43 69 143/75 09/17/19 16:53 77 18 30 09/17/19 16:00 Mechanical Ventilator Mechanical Ventilator Mechanical Ventilator Mechanical Ventilator 09/17/19 16:00 30 09/17/19 16:00 97.5 70 18 150/72 (98) 99 09/17/19 15:38 67 09/17/19 15:12 73 18 100 Mechanical Ventilator 30 74 19 30 09/17/19 13:34 70 18 30 09/17/19 12:00 Mechanical Ventilator Mechanical Ventilator Mechanical Ventilator Mechanical Ventilator 09/17/19 12:00 96.3 66 18 145/77 (99) 99 09/17/19 12:00 145/77 09/17/19 12:00 30 09/17/19 11:39 67 09/17/19 10:52 61 18 100 Mechanical Ventilator 30 62 20 30 09/17/19 09:50 168 93/66 09/17/19 09:50 65 20 30 09/17/19 08:00 96.4 67 18 151/79 (103) 99 09/17/19 08:00 30 09/17/19 08:00 Mechanical Ventilator Mechanical Ventilator Mechanical Ventilator Mechanical Ventilator 09/17/19 07:47 70 09/17/19 07:13 65 19 100 Mechanical Ventilator 30 68 18 30 09/17/19 06:41 157/62 09/17/19 05:19 69 18 30 09/17/19 04:00 97.5 69 20 157/62 (93) 98 09/17/19 04:00 Mechanical Ventilator Mechanical Ventilator Mechanical Ventilator Mechanical Ventilator 09/17/19 04:00 30 09/17/19 03:53 73 09/17/19 03:19 68 18 100 Mechanical Ventilator 30 72 19 30 09/17/19 00:50 64 18 30 09/17/19 00:00 96.3 66 18 143/92 (109) 98 09/17/19 00:00 Mechanical Ventilator Mechanical Ventilator Mechanical Ventilator Mechanical Ventilator 09/17/19 00:00 72 09/16/19 23:23 138/80 09/16/19 22:58 65 18 30 09/16/19 20:51 65 18 30 09/16/19 20:00 97.2 76 18 138/80 (99) 95 09/16/19 20:00 76 09/16/19 20:00 30 09/16/19 20:00 Mechanical Ventilator Mechanical Ventilator Mechanical Ventilator Mechanical Ventilator 09/16/19 19:02 68 18 30 09/16/19 18:26 78 143/81 09/16/19 18:26 143/81 Intake and Output 09/17/19 09/18/19 18:59 06:59 Intake Total 575 ml 585 ml Output Total 1000 ml 325 ml Balance -425 ml 260 ml Intake Free Water 30 ml 200 ml IV Total 100 ml Tube Feeding 385 ml 385 ml Other 60 ml Output Urine Total 325 ml Hemodialysis UF 1000 ml # Bowel Movements 1 2 Labs Test 09/16/19 05:47 Sodium Level 144 MMOL/L (136-145) Potassium Level 3.6 MMOL/L (3.5-5.1) Chloride Level 106 MMOL/L (98-107) Carbon Dioxide Level 25 MMOL/L (21-32) Anion Gap 13 mmol/L (5-15) Blood Urea Nitrogen 67 mg/dL (7-18) Creatinine 3.5 MG/DL (0.55-1.30) Estimat Glomerular Filtration Rate 12.6 mL/min (>60) Glucose Level 91 MG/DL (74-106) Calcium Level 8.9 MG/DL (8.5-10.1) Total Bilirubin 0.5 MG/DL (0.2-1.0) Aspartate Amino Transf (AST/SGOT) 66 U/L (15-37) Alanine Aminotransferase (ALT/SGPT) 30 U/L (12-78) Alkaline Phosphatase 150 U/L (46-116) Total Creatine Kinase 48 U/L (26-308) Total Protein 6.6 G/DL (6.4-8.2) Albumin 2.0 G/DL (3.4-5.0) Globulin 4.6 g/dL Albumin/Globulin Ratio 0.4 (1.0-2.7) Height (Feet): 5 Height (Inches): 4.00 Weight (Pounds): 112 Objective Physical Exam vitals; reviewed gen: nad pulm: on trach+ / vent, decreased breath sounds left, chest tube+ cv: rrr, no gmr abd: sfot, nt, nd ++ gt ext: no cce Gio Rob MD Sep 18, 2019 17:34
--- NOTE | 2019-09-18 17:44 | Progress Note ---
DATE: 09/18/2019 CARDIOLOGY PROGRESS NOTE SUBJECTIVE: No new events. The patient is tolerating feedings. No respiratory distress. Monitored rhythm, sinus. Blood pressure 152/67, pulse 65, respiratory rate 16. Remains on ventilator support. Weaning efforts ongoing. The patient is on hemodialysis. Monitored rhythm sinus. No bradyarrhythmias. PHYSICAL EXAMINATION: VITAL SIGNS: Blood pressure 152/67, pulse 74, respiratory rate 18, and afebrile. LUNGS: Bilateral breath sounds. HEART: Regular rhythm and rate. Normal S1, S2. ABDOMEN: Soft. ____ tube intact. EXTREMITIES: Trace edema. IMPRESSION: 1. Multiorgan system failure now stabilized for subacute level of care. 2. Therapies and medication regimen reviewed and updated. 3. Discussed with staff. 4. Will need continued hemodialysis with infiltration. 5. We will continue efforts with case management to locate facility for transfer. Abel Stubbs M.D. DR: Lety JOB#: [id number] CC:
--- NOTE | 2019-09-18 18:11 | Surgery Progress Note ---
Surgery Progress Note Subjective Procedure Performed 1. tracheostomy 2 removal of left tube thoracostomy Additional Comments less drainage comfortable Objective Last 24 Hour Vital Signs Date Time Temp Pulse Resp B/P (MAP) Pulse Ox O2 Delivery O2 Flow Rate FiO2 09/18/19 17:32 68 153/67 09/18/19 17:31 153/72 09/18/19 16:48 60 18 30 09/18/19 16:00 98.1 74 18 153/67 (95) 100 09/18/19 16:00 Mechanical Ventilator Mechanical Ventilator Mechanical Ventilator Mechanical Ventilator 09/18/19 16:00 30 09/18/19 15:27 75 18 100 Mechanical Ventilator 30 78 18 30 09/18/19 12:46 75 20 30 09/18/19 12:24 137/71 09/18/19 12:00 Mechanical Ventilator Mechanical Ventilator Mechanical Ventilator Mechanical Ventilator 09/18/19 12:00 72 09/18/19 12:00 30 09/18/19 12:00 97.8 67 18 137/70 (92) 100 09/18/19 11:29 62 18 100 Mechanical Ventilator 30 62 18 30 09/18/19 09:27 65 153/67 09/18/19 08:44 100 09/18/19 08:42 68 16 09/18/19 08:35 67 19 30 09/18/19 08:00 30 09/18/19 08:00 98.1 74 18 153/67 (95) 100 09/18/19 08:00 Mechanical Ventilator Mechanical Ventilator Mechanical Ventilator Mechanical Ventilator 09/18/19 08:00 63 09/18/19 07:00 65 18 100 Mechanical Ventilator 30 65 18 30 09/18/19 06:36 147/72 09/18/19 05:21 67 18 30 09/18/19 04:00 97.7 66 18 147/77 (100) 100 09/18/19 04:00 Mechanical Ventilator Mechanical Ventilator Mechanical Ventilator Mechanical Ventilator 09/18/19 04:00 30 09/18/19 03:46 67 09/18/19 03:42 73 18 100 30 75 19 30 09/18/19 01:06 72 18 30 09/18/19 00:43 157/83 09/18/19 00:00 Mechanical Ventilator Mechanical Ventilator Mechanical Ventilator Mechanical Ventilator 09/18/19 00:00 70 09/18/19 00:00 97.9 72 18 153/83 (106) 100 09/18/19 00:00 30 09/17/19 23:30 70 19 100 Mechanical Ventilator 30 73 19 30 09/17/19 21:39 72 18 30 09/17/19 20:01 70 09/17/19 20:00 Mechanical Ventilator Mechanical Ventilator Mechanical Ventilator Mechanical Ventilator 09/17/19 20:00 97.3 72 20 150/77 (101) 91 09/17/19 19:20 69 18 100 Mechanical Ventilator 30 72 19 30 09/17/19 18:44 143/75 09/17/19 18:43 69 143/75 I&O Intake and Output 09/17/19 09/18/19 19:00 07:00 Intake Total 610 ml 550 ml Output Total 1175 ml 150 ml Balance -565 ml 400 ml Intake Free Water 30 ml 200 ml IV Total 100 ml Tube Feeding 420 ml 350 ml Other 60 ml Output Urine Total 175 ml 150 ml Hemodialysis UF 1000 ml # Bowel Movements 1 2 Cardiovascular: RSR Respiratory: decreased breath sounds Abdomen: soft, non-tender, present bowel sounds Extremities: no cyanosis Assessment Post-op Diagnosis same Plan Problems: (1) Malnutrition Assessment & Plan: DAILY ESTIMATED NEEDS: Needs based on ESRD+ HD, underweight, wound/ 39.5kg 35-40 kcals/kg 4769-0122 total kcals 1.25-1.8 g protein/kg 49-71 g total protein 20-22 mL/kg 790-869 total fluid mLs NUTRITION DIAGNOSIS: * Increased kcal and protein needs r/t underweight status, HD needs, wuond healing as evidenced by pt is underweight per guidelines, ESRD, on HD, admitted non-blanching erythema wounds @ BL heels and sacrum * Swallowing difficulty R/T dysphagia as evidenced by TOUCH UP EDGER recommends temporary nonoral feeding at this time, s/p NGT insertion, on NGT feeding-> now s/p self removal, NPO. CURRENT TF:NPO PO DIET RECOMMENDATIONS: WHEN SAFE FOR ORAL DIET -> renal/ texture per TOUCH UP EDGER ENTERAL NUTRITION RECOMMENDATIONS: W/ GI access: Nepro @ 35ml/hr x 22 hrs to provide 770ml, 1386kcal, 62g prot, 560ml free water * W/ GI access, resume TF on Nepro * Initiate Nepro @ 15ml/hr x 6 hrs, advance 10ml q 4-6 hrs as tolerated to goal rate. * Hold 1 hour before and after Synthroid med * HOB over 30 degrees/ water flush per MD. ADDITIONAL RECOMMENDATIONS: 1) Calibrated bed scale wt for accurate CBW -> daily wt monitoring Per HD record: dry wt on 07/30=39.5kg (87lbs) 2) Wound care: (W/ GI access) add Nephorivte x 1 + Balta BID 3) Monitor NPO status: without GI access at this time, s/p pulling out NGT 4) Monitor for hypoglycemia while NPO 5) Monitor for continuity of HD (2) Septic arthritis Assessment & Plan: Pt presented on admission with generalized scaly rash . pt noted to be restless and scratching at skin. Bleeding from oral mucosa noted. Joint deformity noted to R shoulder. Surgical incision approximated with 11 sutures. Erythema but no exudate,or elevation in skin temp at site of incision. Historical incision R hip that is tunneled.Small amt seropurulent exudate noted. Periwound is erythematous,but no elevation in skin temp noted. No odor noted. Non-blanching erythema noted to sacrum. Perianal area is erythematous and excoriated. L heel is boggy with non-blanching erythema. R heel is soft with non-blanching erythema. No evidence of skin breakdown to all other bony prominences. Tx.plan: Cover R shoulder with Drsg and change daily and prn. Cleanse R hip wound with Saline. Apply Therahoney.Apply Cavilon Skin Barrier periwound. Cover with Optifoam drsg. Change every 3 days and prn. Apply Moisture Barrier Paste to perianal area and buttocks. Cover Sacrum with Optifoam drsg. Change every 3 days and prn. Apply Cavilon Skin Barrier to both heels. Cover each heel with Optifoam drsg. Change every 7 days and prn. APM/ELVIA Mattress overlay. Reposition at least every 2hours or as tolerated. Off-load heels with pillow. HD cath necessary HD as renal likely will need intubation (3) Wound, open, hip or thigh with complication Assessment & Plan: slow healing will need nutritional optimization difficult ng tube peg when stable sutures removed from right shoulder comfortable wean vent may need trach (4) Abscess of right hip (5) possible septic arthritis (6) Renal failure (ARF), acute on chronic Assessment & Plan: cont HD will need tunneled cath placement okay to use fem line for now but will need change soon. line monitored and clean dressings going well (7) Pneumonia Assessment & Plan: intubated on vent support not tolerating weaning may need trach hemothorax likely after thoracentesis Chest CT noted Left chest tube placed With plan for trach chest tube can be considered but overall prognosis is very poor s/p trach left chest tub eout cxr noted and okay downgrade left pleural effusion dressings saturated will need to monitor. may need another chest tube as may not heal well on left side Camilo James Sep 18, 2019 18:11
[2019-09-18 20:00] VITALS: BP 144/72
[2019-09-18] MEDS: Dyna-Hex 2% Top Sol 2oz TOPIC SCH (21:01)
[2019-09-19] VITALS (7 sets, daily range): BP systolic 139–154; BP diastolic 72–78
[2019-09-19] MEDS: HydrALAZINE 25mg tab NG SCH ×4 (00:20→18:00)
[2019-09-19] MEDS: Albuterol/Ipratropium 3ml neb HHN SCH ×6 (03:36→22:48)
[2019-09-19 06:40] LABS: BASOPHILS % (AUTO) 0.6 % (0.0-2.0); EOSINOPHILS % (AUTO) 0.5 % (0.0-3.0); HEMATOCRIT 29.6 % (37.0-47.0); HEMOGLOBIN 9.9 G/DL (12.0-16.0); LYMPHOCYTES % (AUTO) 30.7 % (20.0-45.0); MEAN CORPUSCULAR VOLUME 87 FL (80-99); MONOCYTES % (AUTO) 3.8 % (1.0-10.0); NEUTROPHILS % (AUTO) 64.4 % (45.0-75.0); PLATELET COUNT 529 K/UL (150-450); RED BLOOD COUNT 3.39 M/UL (4.20-5.40); WHITE BLOOD COUNT 10.1 K/UL (4.8-10.8)
[2019-09-19 07:32] LABS: ALANINE AMINOTRANSFERASE 69 U/L (12-78); ALBUMIN 2.3 G/DL (3.4-5.0); ALBUMIN/GLOBULIN RATIO 0.5 (1.0-2.7); ALKALINE PHOSPHATASE 209 U/L (46-116); ANION GAP 10 mmol/L (5-15); ASPARTATE AMINO TRANSFERASE 158 U/L (15-37); BILIRUBIN,TOTAL 0.6 MG/DL (0.2-1.0); BLOOD UREA NITROGEN 81 mg/dL (7-18); CALCIUM 8.5 MG/DL (8.5-10.1); CARBON DIOXIDE 27 MMOL/L (21-32); CHLORIDE 99 MMOL/L (98-107); CREATININE 3.2 MG/DL (0.55-1.30); PHOSPHORUS 3.3 MG/DL (2.5-4.9); SODIUM 136 MMOL/L (136-145)
--- NOTE | 2019-09-19 07:38 | General Progress Note ---
Assessment/Plan Problem List: (1) Hypothyroid ICD Codes: E03.9 - Hypothyroidism, unspecified SNOMED: 67770206 (2) ESRD (end stage renal disease) on dialysis ICD Codes: N18.6 - End stage renal disease; Z99.2 - Dependence on renal dialysis SNOMED: 644534585 (3) Hypotension ICD Codes: I95.9 - Hypotension, unspecified SNOMED: 79971507 Qualifiers: Qualified Codes: I95.3 - Hypotension of hemodialysis (4) Pneumonia ICD Codes: J18.9 - Pneumonia, unspecified organism SNOMED: 289308741 Qualifiers: Qualified Codes: J18.9 - Pneumonia, unspecified organism (5) Diabetes mellitus ICD Codes: E11.9 - Type 2 diabetes mellitus without complications SNOMED: 99945232 Status: stable, not improved, unchanged, deteriorating Assessment/Plan: TSH normalized last week - he was treated with Levothyroxine IV 50 mcg for couple of weeks - continue Levothyroxine tablet dose to 100 mcg daily - repeat TSH, free 4 this week continue glucose monitoring without insulin coverage hypoglycemia protocol in order Subjective ROS Limited/Unobtainable: Yes Allergies: Coded Allergies: VANCOMYCIN (Unverified Allergy, Unknown, 08/02/19) Subjective events noted interval notes reviewed glucose values are stable Item Value Date Time Bedside Blood Glucose 104 mg/dl 09/19/19 0645 Bedside Blood Glucose 96 mg/dl 09/19/19 0000 Bedside Blood Glucose 91 mg/dl 09/18/19 1200 Bedside Blood Glucose 95 mg/dl 09/18/19 1800 Objective Last 24 Hour Vital Signs Date Time Temp Pulse Resp B/P (MAP) Pulse Ox O2 Delivery O2 Flow Rate FiO2 09/19/19 06:07 139/77 09/19/19 05:00 68 18 30 09/19/19 04:00 30 09/19/19 04:00 97.3 72 18 139/77 (97) 100 09/19/19 04:00 Mechanical Ventilator Mechanical Ventilator Mechanical Ventilator Mechanical Ventilator 09/19/19 03:51 72 19 100 Mechanical Ventilator 30 09/19/19 03:37 75 09/19/19 03:36 75 20 Mechanical Ventilator 30 30 09/19/19 01:25 72 19 30 09/19/19 00:20 150/78 09/19/19 00:00 97.9 68 19 150/78 (102) 100 09/19/19 00:00 30 09/19/19 00:00 Mechanical Ventilator Mechanical Ventilator Mechanical Ventilator Mechanical Ventilator 09/19/19 00:00 70 09/18/19 23:40 73 19 100 Mechanical Ventilator 30 09/18/19 23:25 68 19 Mechanical Ventilator 30 30 09/18/19 20:47 65 18 30 09/18/19 20:00 97.5 70 16 144/72 (96) 100 09/18/19 20:00 Mechanical Ventilator Mechanical Ventilator Mechanical Ventilator Mechanical Ventilator 09/18/19 20:00 30 09/18/19 19:45 73 22 100 Mechanical Ventilator 30 09/18/19 19:30 73 18 Mechanical Ventilator 30 30 09/18/19 19:06 70 09/18/19 17:32 68 153/67 09/18/19 17:31 153/72 09/18/19 16:48 60 18 30 09/18/19 16:00 98.1 74 18 153/67 (95) 100 09/18/19 16:00 67 09/18/19 16:00 Mechanical Ventilator Mechanical Ventilator Mechanical Ventilator Mechanical Ventilator 09/18/19 16:00 30 09/18/19 15:27 75 18 100 Mechanical Ventilator 30 78 18 30 09/18/19 12:46 75 20 30 09/18/19 12:24 137/71 09/18/19 12:00 Mechanical Ventilator Mechanical Ventilator Mechanical Ventilator Mechanical Ventilator 09/18/19 12:00 72 09/18/19 12:00 30 09/18/19 12:00 97.8 67 18 137/70 (92) 100 09/18/19 11:29 62 18 100 Mechanical Ventilator 30 62 18 30 09/18/19 09:27 65 153/67 09/18/19 08:44 100 09/18/19 08:42 68 16 09/18/19 08:35 67 19 30 09/18/19 08:00 30 09/18/19 08:00 98.1 74 18 153/67 (95) 100 09/18/19 08:00 Mechanical Ventilator Mechanical Ventilator Mechanical Ventilator Mechanical Ventilator 09/18/19 08:00 63 Intake and Output 09/18/19 09/19/19 19:00 07:00 Intake Total 485 ml 550 ml Output Total 150 ml 100 ml Balance 335 ml 450 ml Intake Free Water 100 ml 200 ml Tube Feeding 385 ml 350 ml Output Urine Total 150 ml 100 ml # Bowel Movements 6 3 Laboratory Tests 09/19/19 05:30: White Blood Count 10.1, Red Blood Count 3.39L, Hemoglobin 9.9L, Hematocrit 29.6L , Mean Corpuscular Volume 87, Mean Corpuscular Hemoglobin 29.3, Mean Corpuscular Hemoglobin Concent 33.5, Red Cell Distribution Width 15.0H, Platelet Count 529H, Mean Platelet Volume 4.7L, Neutrophils (%) (Auto) 64.4, Lymphocytes (%) (Auto) 30.7, Monocytes (%) (Auto) 3.8, Eosinophils (%) (Auto) 0.5, Basophils (%) (Auto) 0.6, Sodium Level [Pending], Potassium Level [Pending] , Chloride Level [Pending], Carbon Dioxide Level [Pending], Blood Urea Nitrogen [Pending], Creatinine [Pending], Estimat Glomerular Filtration Rate [Pending], Glucose Level [Pending], Calcium Level [Pending], Phosphorus Level [Pending], Magnesium Level [Pending], Total Bilirubin [Pending], Aspartate Amino Transf ( AST/SGOT) [Pending], Alanine Aminotransferase (ALT/SGPT) [Pending], Alkaline Phosphatase [Pending], C-Reactive Protein, Quantitative [Pending], Pro-B-Type Natriuretic Peptide [Pending], Total Protein [Pending], Albumin [Pending], Globulin [Pending] Height (Feet): 5 Height (Inches): 4.00 Weight (Pounds): 112 General Appearance: no apparent distress Neck: normal alignment Cardiovascular: normal rate Respiratory/Chest: rhonchi - bilaterally Abdomen: normal bowel sounds Objective Current Medications Medications (Trade) Dose Ordered Sig/Javier Route PRN Reason Start Time Stop Time Status Last Admin Dose Admin Acetaminophen (Tylenol) 650 mg Q4H PRN GT Mild Pain/Temp > 100.5 09/03/19 07:00 10/03/19 06:59 09/09/19 06:13 Acetylcysteine (Mucomyst) 100 mg Q4HRT HHN 08/31/19 19:00 11/29/19 18:59 09/19/19 03:37 Albuterol/ Ipratropium (Albuterol/ Ipratropium) 3 ml Q4HRT HHN 09/17/19 03:00 09/22/19 02:59 09/19/19 03:36 Amlodipine Besylate (Norvasc) 5 mg BID NG 08/23/19 01:45 09/22/19 01:44 09/18/19 17:32 Chlorhexidine Gluconate (Nae-Hex 2%) 1 applic DAILY@2000 TOPIC 09/17/19 20:00 12/16/19 19:59 09/18/19 21:01 Dextrose (Dextrose 50%) 25 ml Q30M PRN IV Hypoglycemia 09/02/19 06:15 12/01/19 06:14 09/04/19 12:11 Dextrose (Dextrose 50%) 50 ml Q30M PRN IV Hypoglycemia 09/02/19 06:15 12/01/19 06:14 Hydralazine HCl (Apresoline) 25 mg Q6HR NG 08/23/19 06:00 09/22/19 05:59 09/19/19 06:07 Levothyroxine Sodium (Synthroid) 100 mcg DAILY@0630 ORAL 09/14/19 06:30 09/24/19 06:29 09/19/19 06:07 Antonio Jacome MD Sep 19, 2019 07:38
--- NOTE | 2019-09-19 09:11 | Hematology/Onc Progress Note ---
Assessment/Plan Assessment/Plan # Thrombocytopenia - potential causes multifactorial, evaluate liver and viral etiologies to begin, in this case due to sepsis with septic shock also with cirrhosis and liver disease --> Hep panel and HIV ordered --> neg --> US abd to evaluate for cirrhosis and hsm ordered --> reviewed --> Peripheral smear ordered to evaluate for blasts /schistocytes --> none noted --> abx and other meds have been reviewed --> ok for ppx if plt >50k w/ either heparin or lovenox --> Transfuse if Plt < 20k and fever, or if Plt < 10k without fever --> okay for permacath change once plt better--> for 08/14 --> plt trend: 43-->83-->237k-->292-->341-->315-->388 -->444-->530-->252k-->344- >529 # Anemia of chronic disease due to underlying chronic medical issues, multifactorial v Gi bleed --> Anemia workup has been ordered, rule out gi bleed --> No evidence of hemolysis is noted, peripheral smear has been reviewed. --> Hgb goal >7. Transfuse prn. --> Epogen has been started --> HOLD OFF IRON ferritin is >1000 --> Medications have been reviewed --> low threshold for gi evaluation in case has occult + --> hgb 9-->6.7-->9.2 -->10.5-->10.6 -->10.7-->10-->10.5-->9.8-->10.4-->9.5--> 3.6-->9.6-->9.7-->10-->10.3-->11->9.9 --> blood tx: 08/11, 08/31 --> CT Chest r/o hemothorax --> does show confirmation of a large left hemothorax. Complete atelectasis of the left lower lobe and partial left upper lobe atelectasis demonstrated. Mild rightward shift of the heart and mediastinum. # Sepsis with shock. --> abx as per id, recs noted --> pressors as needed # Healthcare-associated pneumonia. --> recs reviewed --> abx: jung/micafungin-->jung-->off --> 08/24 chest: moderate left pleural effusion # Severe protein-calorie malnutrition. --> nutritional support # End-stage renal disease --> had as renal hd --> with permacath # History of hypertension. --> per cards, now with Bradycardia. # Resp failure s/p vent/trach # HypoThyroid # Ngt feedings # Dvt ppx scd's The timing of this note does not necessarily reflect the time of the patient was seen. Greatly appreciate consultation. Subjective HEENT: Denies: no symptoms, eye pain, blurred vision, tearing, double vision, ear pain, ear discharge, nose pain, nose congestion, throat pain, throat swelling, mouth pain, mouth swelling, other Cardiovascular: Denies: no symptoms, chest pain, edema, irregular heart rate, lightheadedness, palpitations, syncope, other Respiratory: Denies: no symptoms, cough, shortness of breath, SOB with excertion, SOB at rest, sputum, wheezing, other Gastrointestinal/Abdominal: Denies: no symptoms, abdomen distended, abdominal pain, black stools, tarry stools, blood in stool, constipated, diarrhea, difficulty swallowing, nausea, poor appetite, poor fluid intake, rectal bleeding , vomiting, other Genitourinary: Denies: no symptoms, burning, discharge, frequency, flank pain, hematuria, incontinence, pain, urgency, other Neurologic/Psychiatric: Denies: no symptoms, anxiety, depressed, emotional problems, headache, numbness, paresthesia, pre-existing deficit, seizure, tingling, tremors, weakness, other Endocrine: Denies: no symptoms, excessive sweating, flushing, intolerance to cold, intolerance to heat, increased hunger, increased thirst, increased urine, unexplained weight gain, unexplained weight loss, other Allergies: Coded Allergies: VANCOMYCIN (Unverified Allergy, Unknown, 08/02/19) Subjective 08/11: no bleeding or chills, labs reviewed, no major bleeding, plt less than 50k 08/12: icu, s/p blood, hgb improved to 9.2, 08/14: icu, pending consent for thora and permacath, labs reviewed 08/15: new permacath placed, no bleeding, for hd, plt much improved, started lovenox sq 08/16: ett to be adjusted, bp on high end, micafungin started, possible bronch 08/17: weaning as per pulm, no events otherwise, labs noted 08/18: no events no bleeding, remains confused on vent, for hd 08/20: icu, failed to wean, labs reviewed, jung 08/21: resting in bed, no overnight events, labs reviewed 08/22: awake, confused, restraints, no overnight events 08/23: no events, no bleeding, on ppi bid 08/24: icu, failed to wean, labs reviewed 08/25: no overnight events, us chest, restraints, afebrile 08/26 difficult in weaning, nad, seen by surg, pulm labs noted 08/27 awake on restraints, thoracentesis for am, labs reviewed 08/29 no bleeding, no night sweats, no major changes, on ppi bid 08/30 no major events, remains on vent, no bleeding, dw pcp 08/31 hgb dropped to 3.6, has been transfused with prbc, in icu, dw Rn, ct chest pend 09/01 no major events, no bleeding, labs noted, hgb remains low, hgb 9.6 09/03 lethargic, left chest tube dry/intact, off abx, vent 09/04 remains on a vent, synthroid, labs reviewed 09/05 awake and alert, no acute events, hgb 9.8, no new orders 09/06 no bleeding or chills, labs noted, no major events overnight, david rn 09/07 no events, no night sweats, no bleeding, no fc, remains agitated in the am 09/08 remains in the icu, trach was done, on vent, abx off, on epo 09/10 transferred to sdu, restraints, vent, labs reviewed 09/11 tube feeds have been ongoing, no f/c, labs reviewed 09/12 no events, no bleeding, no night sweats, hgb 10 09/13 tsh is improved, remains confused, hgb is 11, no bleeding 09/14 no events, no bleeding, labs noted, vitals stable 09/15 confused, no acute events, restraints, dc planning 09/17 no new changes, no recent labs, placement pending 4/6 no events, no bleeding, no night sweats, fevers Objective Objective Current Medications Medications (Trade) Dose Ordered Sig/Javier Route PRN Reason Start Time Stop Time Status Last Admin Dose Admin Acetaminophen (Tylenol) 650 mg Q4H PRN GT Mild Pain/Temp > 100.5 09/03/19 07:00 10/03/19 06:59 09/09/19 06:13 Acetylcysteine (Mucomyst) 100 mg Q4HRT N 08/31/19 19:00 11/29/19 18:59 09/19/19 08:22 Albuterol/ Ipratropium (Albuterol/ Ipratropium) 3 ml Q4HRT N 09/17/19 03:00 09/22/19 02:59 09/19/19 08:22 Amlodipine Besylate (Norvasc) 5 mg BID NG 08/23/19 01:45 09/22/19 01:44 09/18/19 17:32 Chlorhexidine Gluconate (Nae-Hex 2%) 1 applic DAILY@1999 TOPIC 09/17/19 20:00 12/16/19 19:59 09/18/19 21:01 Dextrose (Dextrose 50%) 25 ml Q30M PRN IV Hypoglycemia 09/02/19 06:15 12/01/19 06:14 09/04/19 12:11 Dextrose (Dextrose 50%) 50 ml Q30M PRN IV Hypoglycemia 09/02/19 06:15 12/01/19 06:14 Hydralazine HCl (Apresoline) 25 mg Q6HR NG 08/23/19 06:00 09/22/19 05:59 09/19/19 06:07 Levothyroxine Sodium (Synthroid) 100 mcg DAILY@0630 ORAL 09/14/19 06:30 09/24/19 06:29 09/19/19 06:07 Last 24 Hour Vital Signs Date Time Temp Pulse Resp B/P (MAP) Pulse Ox O2 Delivery O2 Flow Rate FiO2 09/19/19 08:15 65 18 100 Mechanical Ventilator 30 66 18 30 09/19/19 06:07 139/77 09/19/19 05:00 68 18 30 09/19/19 04:00 30 09/19/19 04:00 97.3 72 18 139/77 (97) 100 09/19/19 04:00 Mechanical Ventilator Mechanical Ventilator Mechanical Ventilator Mechanical Ventilator 09/19/19 03:51 72 19 100 Mechanical Ventilator 30 09/19/19 03:37 75 09/19/19 03:36 75 20 Mechanical Ventilator 30 30 09/19/19 01:25 72 19 30 09/19/19 00:20 150/78 09/19/19 00:00 97.9 68 19 150/78 (102) 100 09/19/19 00:00 30 09/19/19 00:00 Mechanical Ventilator Mechanical Ventilator Mechanical Ventilator Mechanical Ventilator 09/19/19 00:00 70 09/18/19 23:40 73 19 100 Mechanical Ventilator 30 09/18/19 23:25 68 19 Mechanical Ventilator 30 30 09/18/19 20:47 65 18 30 09/18/19 20:00 97.5 70 16 144/72 (96) 100 09/18/19 20:00 Mechanical Ventilator Mechanical Ventilator Mechanical Ventilator Mechanical Ventilator 09/18/19 20:00 30 09/18/19 19:45 73 22 100 Mechanical Ventilator 30 09/18/19 19:30 73 18 Mechanical Ventilator 30 30 09/18/19 19:06 70 09/18/19 17:32 68 153/67 09/18/19 17:31 153/72 09/18/19 16:48 60 18 30 09/18/19 16:00 98.1 74 18 153/67 (95) 100 09/18/19 16:00 67 09/18/19 16:00 Mechanical Ventilator Mechanical Ventilator Mechanical Ventilator Mechanical Ventilator 09/18/19 16:00 30 09/18/19 15:27 75 18 100 Mechanical Ventilator 30 78 18 30 09/18/19 12:46 75 20 30 09/18/19 12:24 137/71 09/18/19 12:00 Mechanical Ventilator Mechanical Ventilator Mechanical Ventilator Mechanical Ventilator 09/18/19 12:00 72 09/18/19 12:00 30 09/18/19 12:00 97.8 67 18 137/70 (92) 100 09/18/19 11:29 62 18 100 Mechanical Ventilator 30 62 18 30 09/18/19 09:27 65 153/67 09/18/19 08:44 100 09/18/19 08:42 68 16 09/18/19 08:35 67 19 30 09/18/19 08:00 30 09/18/19 08:00 98.1 74 18 153/67 (95) 100 09/18/19 08:00 Mechanical Ventilator Mechanical Ventilator Mechanical Ventilator Mechanical Ventilator 09/18/19 08:00 63 09/18/19 07:00 65 18 100 Mechanical Ventilator 30 65 18 30 09/18/19 06:36 147/72 09/18/19 05:21 67 18 30 09/18/19 04:00 97.7 66 18 147/77 (100) 100 09/18/19 04:00 Mechanical Ventilator Mechanical Ventilator Mechanical Ventilator Mechanical Ventilator 09/18/19 04:00 30 09/18/19 03:46 67 09/18/19 03:42 73 18 100 30 75 19 30 09/18/19 01:06 72 18 30 09/18/19 00:43 157/83 09/18/19 00:00 Mechanical Ventilator Mechanical Ventilator Mechanical Ventilator Mechanical Ventilator 09/18/19 00:00 70 09/18/19 00:00 97.9 72 18 153/83 (106) 100 09/18/19 00:00 30 09/17/19 23:30 70 19 100 Mechanical Ventilator 30 73 19 30 09/17/19 21:39 72 18 30 09/17/19 20:01 70 09/17/19 20:00 Mechanical Ventilator Mechanical Ventilator Mechanical Ventilator Mechanical Ventilator 09/17/19 20:00 97.3 72 20 150/77 (101) 91 09/17/19 19:20 69 18 100 Mechanical Ventilator 30 72 19 30 09/17/19 18:44 143/75 09/17/19 18:43 69 143/75 09/17/19 16:53 77 18 30 09/17/19 16:00 Mechanical Ventilator Mechanical Ventilator Mechanical Ventilator Mechanical Ventilator 09/17/19 16:00 30 09/17/19 16:00 97.5 70 18 150/72 (98) 99 09/17/19 15:38 67 09/17/19 15:12 73 18 100 Mechanical Ventilator 30 74 19 30 09/17/19 13:34 70 18 30 09/17/19 12:00 Mechanical Ventilator Mechanical Ventilator Mechanical Ventilator Mechanical Ventilator 09/17/19 12:00 96.3 66 18 145/77 (99) 99 09/17/19 12:00 145/77 09/17/19 12:00 30 09/17/19 11:39 67 09/17/19 10:52 61 18 100 Mechanical Ventilator 30 62 20 30 09/17/19 09:50 168 93/66 09/17/19 09:50 65 20 30 Intake and Output 09/18/19 09/19/19 19:00 07:00 Intake Total 485 ml 550 ml Output Total 150 ml 100 ml Balance 335 ml 450 ml Intake Free Water 100 ml 200 ml Tube Feeding 385 ml 350 ml Output Urine Total 150 ml 100 ml # Bowel Movements 6 3 Labs Test 09/19/19 05:30 White Blood Count 10.1 K/UL (4.8-10.8) Red Blood Count 3.39 M/UL (4.20-5.40) Hemoglobin 9.9 G/DL (12.0-16.0) Hematocrit 29.6 % (37.0-47.0) Mean Corpuscular Volume 87 FL (80-99) Mean Corpuscular Hemoglobin 29.3 PG (27.0-31.0) Mean Corpuscular Hemoglobin Concent 33.5 G/DL (32.0-36.0) Red Cell Distribution Width 15.0 % (11.6-14.8) Platelet Count 529 K/UL (150-450) Mean Platelet Volume 4.7 FL (6.5-10.1) Neutrophils (%) (Auto) 64.4 % (45.0-75.0) Lymphocytes (%) (Auto) 30.7 % (20.0-45.0) Monocytes (%) (Auto) 3.8 % (1.0-10.0) Eosinophils (%) (Auto) 0.5 % (0.0-3.0) Basophils (%) (Auto) 0.6 % (0.0-2.0) Sodium Level 136 MMOL/L (136-145) Potassium Level 4.0 MMOL/L (3.5-5.1) Chloride Level 99 MMOL/L (98-107) Carbon Dioxide Level 27 MMOL/L (21-32) Anion Gap 10 mmol/L (5-15) Blood Urea Nitrogen 81 mg/dL (7-18) Creatinine 3.2 MG/DL (0.55-1.30) Estimat Glomerular Filtration Rate 13.9 mL/min (>60) Glucose Level 69 MG/DL (74-106) Calcium Level 8.5 MG/DL (8.5-10.1) Phosphorus Level 3.3 MG/DL (2.5-4.9) Magnesium Level 2.2 MG/DL (1.8-2.4) Total Bilirubin 0.6 MG/DL (0.2-1.0) Aspartate Amino Transf (AST/SGOT) 158 U/L (15-37) Alanine Aminotransferase (ALT/SGPT) 69 U/L (12-78) Alkaline Phosphatase 209 U/L (46-116) C-Reactive Protein, Quantitative 13.6 mg/dL (0.00-0.90) Pro-B-Type Natriuretic Peptide > 32804 pg/mL (0-125) Total Protein 6.9 G/DL (6.4-8.2) Albumin 2.3 G/DL (3.4-5.0) Globulin 4.6 g/dL Albumin/Globulin Ratio 0.5 (1.0-2.7) Height (Feet): 5 Height (Inches): 4.00 Weight (Pounds): 112 Objective Physical Exam vitals; reviewed gen: nad pulm: on trach+ / vent, decreased breath sounds left, chest tube+ cv: rrr, no gmr abd: sfot, nt, nd ++ gt ext: no cce Gio Rob MD Sep 19, 2019 09:11
--- NOTE | 2019-09-19 09:59 | Nephrology Progress Note ---
Assessment/Plan Problem List: (1) ESRD (end stage renal disease) on dialysis (2) Malnutrition (3) Anemia in CKD (chronic kidney disease) (4) Hypotension (5) Thrombocytopenia (6) Sepsis Assessment: klebsiella in blood Assessment -Early sepsis with shock. -Healthcare-associated pneumonia. -Severe protein-calorie malnutrition. -Thrombocytopenia. - End-stage renal disease. - History of hypertension. - Bradycardia. - HypoThyroid Plan Labs checked Tracheostomy September 07 Last dialysis September 12, next dialysis scheduled for September 16 Chest tube on the left side was put in on September 01 was discontinued September 07 Patient transfused 3 units of packed RBCs for low hemoglobin Remains full code Blood pressure fluctuating, will start hydralazine via NG tube for blood pressure Magnesium and potassium supplement intravenously as needed Patient underwent PEG placement August 16 patient remains intubated on ventilator Discussed with RN Aim to wean from ventilator or consider tracheostomy Permacath was removed on August 12 Dialysis 08/11 Transfusion as needed Patient had hematemesis meds IV as possible Surveillance blood cultures tomorrow Plan to put the permacath back in on Thursday if cultures are negative keep BP and BS in check Inflammatory markers per orders Subjective ROS Limited/Unobtainable: Yes Objective Objective Last 24 Hour Vital Signs Date Time Temp Pulse Resp B/P (MAP) Pulse Ox O2 Delivery O2 Flow Rate FiO2 09/19/19 08:15 65 18 100 Mechanical Ventilator 30 66 18 30 09/19/19 06:07 139/77 09/19/19 05:00 68 18 30 09/19/19 04:00 30 09/19/19 04:00 97.3 72 18 139/77 (97) 100 09/19/19 04:00 Mechanical Ventilator Mechanical Ventilator Mechanical Ventilator Mechanical Ventilator 09/19/19 03:51 72 19 100 Mechanical Ventilator 30 09/19/19 03:37 75 09/19/19 03:36 75 20 Mechanical Ventilator 30 30 09/19/19 01:25 72 19 30 09/19/19 00:20 150/78 09/19/19 00:00 97.9 68 19 150/78 (102) 100 09/19/19 00:00 30 09/19/19 00:00 Mechanical Ventilator Mechanical Ventilator Mechanical Ventilator Mechanical Ventilator 09/19/19 00:00 70 09/18/19 23:40 73 19 100 Mechanical Ventilator 30 09/18/19 23:25 68 19 Mechanical Ventilator 30 30 09/18/19 20:47 65 18 30 09/18/19 20:00 97.5 70 16 144/72 (96) 100 09/18/19 20:00 Mechanical Ventilator Mechanical Ventilator Mechanical Ventilator Mechanical Ventilator 09/18/19 20:00 30 09/18/19 19:45 73 22 100 Mechanical Ventilator 30 09/18/19 19:30 73 18 Mechanical Ventilator 30 30 09/18/19 19:06 70 09/18/19 17:32 68 153/67 09/18/19 17:31 153/72 09/18/19 16:48 60 18 30 09/18/19 16:00 98.1 74 18 153/67 (95) 100 09/18/19 16:00 67 09/18/19 16:00 Mechanical Ventilator Mechanical Ventilator Mechanical Ventilator Mechanical Ventilator 09/18/19 16:00 30 09/18/19 15:27 75 18 100 Mechanical Ventilator 30 78 18 30 09/18/19 12:46 75 20 30 09/18/19 12:24 137/71 09/18/19 12:00 Mechanical Ventilator Mechanical Ventilator Mechanical Ventilator Mechanical Ventilator 09/18/19 12:00 72 09/18/19 12:00 30 09/18/19 12:00 97.8 67 18 137/70 (92) 100 09/18/19 11:29 62 18 100 Mechanical Ventilator 30 62 18 30 Intake and Output 09/18/19 09/19/19 19:00 07:00 Intake Total 485 ml 550 ml Output Total 150 ml 100 ml Balance 335 ml 450 ml Intake Free Water 100 ml 200 ml Tube Feeding 385 ml 350 ml Output Urine Total 150 ml 100 ml # Bowel Movements 6 3 Current Medications Medications (Trade) Dose Ordered Sig/Javier Route PRN Reason Start Time Stop Time Status Last Admin Dose Admin Acetaminophen (Tylenol) 650 mg Q4H PRN GT Mild Pain/Temp > 100.5 09/03/19 07:00 10/03/19 06:59 09/09/19 06:13 Acetylcysteine (Mucomyst) 100 mg Q4HRT [facility] 08/31/19 19:00 11/29/19 18:59 09/19/19 08:22 Albuterol/ Ipratropium (Albuterol/ Ipratropium) 3 ml Q4HRT [facility] 09/17/19 03:00 09/22/19 02:59 4/6/20 08:22 Amlodipine Besylate (Norvasc) 5 mg BID NG 08/23/19 01:45 09/22/19 01:44 09/18/19 17:32 Chlorhexidine Gluconate (Nae-Hex 2%) 1 applic DAILY@1999 TOPIC 09/17/19 20:00 12/16/19 19:59 09/18/19 21:01 Dextrose (Dextrose 50%) 25 ml Q30M PRN IV Hypoglycemia 09/02/19 06:15 12/01/19 06:14 09/04/19 12:11 Dextrose (Dextrose 50%) 50 ml Q30M PRN IV Hypoglycemia 09/02/19 06:15 12/01/19 06:14 Hydralazine HCl (Apresoline) 25 mg Q6HR NG 08/23/19 06:00 09/22/19 05:59 09/19/19 06:07 Levothyroxine Sodium (Synthroid) 100 mcg DAILY@06 ORAL 09/14/19 06:30 09/24/19 06:29 09/19/19 06:07 Laboratory Tests 09/19/19 05:30: White Blood Count 10.1, Red Blood Count 3.39L, Hemoglobin 9.9L, Hematocrit 29.6L , Mean Corpuscular Volume 87, Mean Corpuscular Hemoglobin 29.3, Mean Corpuscular Hemoglobin Concent 33.5, Red Cell Distribution Width 15.0H, Platelet Count 529H, Mean Platelet Volume 4.7L, Neutrophils (%) (Auto) 64.4, Lymphocytes (%) (Auto) 30.7, Monocytes (%) (Auto) 3.8, Eosinophils (%) (Auto) 0.5, Basophils (%) (Auto) 0.6, Sodium Level 136, Potassium Level 4.0, Chloride Level 99, Carbon Dioxide Level 27, Anion Gap 10, Blood Urea Nitrogen 81H, Creatinine 3.2H, Estimat Glomerular Filtration Rate 13.9, Glucose Level 69L, Calcium Level 8.5, Phosphorus Level 3.3, Magnesium Level 2.2, Total Bilirubin 0.6, Aspartate Amino Transf (AST/SGOT) 158H, Alanine Aminotransferase (ALT/SGPT ) 69, Alkaline Phosphatase 209H, C-Reactive Protein, Quantitative 13.6H, Pro-B- Type Natriuretic Peptide > 39403R, Total Protein 6.9, Albumin 2.3L, Globulin 4.6 , Albumin/Globulin Ratio 0.5L Height (Feet): 5 Height (Inches): 4.00 Weight (Pounds): 112 General Appearance: no apparent distress, lethargic EENT: other - Trach Cardiovascular: normal rate Respiratory/Chest: decreased breath sounds Abdomen: soft, other - PEG Objective no change William Blackwood MD Sep 19, 2019 09:59
--- NOTE | 2019-09-19 10:08 | General Progress Note ---
Assessment/Plan Problem List: (1) Failure to thrive (0-17) ICD Codes: R62.51 - Failure to thrive (0-17) SNOMED: 449369697 (2) Hypertensive kidney disease ICD Codes: I12.9 - Hypertensive chronic kidney disease with stage 1 through stage 4 chronic kidney disease, or unspecified chronic kidney disease SNOMED: 35378127 (3) Pneumonia ICD Codes: J18.9 - Pneumonia, unspecified organism SNOMED: 376254289 Qualifiers: Qualified Codes: J18.9 - Pneumonia, unspecified organism (4) ESRD (end stage renal disease) ICD Codes: N18.6 - End stage renal disease SNOMED: 36068313 (5) Septic arthritis ICD Codes: M00.9 - Pyogenic arthritis, unspecified SNOMED: 824267160 (6) Thrombocytopenia ICD Codes: D69.6 - Thrombocytopenia, unspecified SNOMED: 996895863 (7) Hypotension ICD Codes: I95.9 - Hypotension, unspecified SNOMED: 45528447 Qualifiers: Qualified Codes: I95.3 - Hypotension of hemodialysis (8) Malnutrition ICD Codes: E46 - Unspecified protein-calorie malnutrition SNOMED: 18191269 Status: stable, not improved, unchanged, deteriorating Assessment/Plan: Continue vent support. Wean as able. Suctioning and pulmonary toilet. Continue G-tube feedings. Monitor residuals Continue current blood pressure regimen with close monitoring of blood pressure. Hemodialysis with ultrafiltration per nephrology. Turn every 2 hours and good skin care. monitor labs Discharge planning in progress Subjective ROS Limited/Unobtainable: No Constitutional: Reports: malaise, weakness HEENT: Reports: no symptoms Cardiovascular: Reports: no symptoms Respiratory: Reports: sputum Gastrointestinal/Abdominal: Reports: difficulty swallowing Genitourinary: Reports: no symptoms Neurologic/Psychiatric: Reports: anxiety Endocrine: Reports: no symptoms Hematologic/Lymphatic: Reports: anemia Allergies: Coded Allergies: VANCOMYCIN (Unverified Allergy, Unknown, 08/02/19) All Systems: reviewed and negative except above Subjective There were no overnight events. Patient remained stable on the ventilator. She occasionally opens her eyes. Tolerating feedings. No recent labs noted. Case management is currently trying to locate an accepting prison facility or long-term acute care facility. Objective Last 24 Hour Vital Signs Date Time Temp Pulse Resp B/P (MAP) Pulse Ox O2 Delivery O2 Flow Rate FiO2 4/6/20 10:02 67 144/72 09/19/19 08:15 65 18 100 Mechanical Ventilator 30 66 18 30 09/19/19 06:07 139/77 09/19/19 05:00 68 18 30 09/19/19 04:00 30 09/19/19 04:00 97.3 72 18 139/77 (97) 100 09/19/19 04:00 Mechanical Ventilator Mechanical Ventilator Mechanical Ventilator Mechanical Ventilator 09/19/19 03:51 72 19 100 Mechanical Ventilator 30 09/19/19 03:37 75 09/19/19 03:36 75 20 Mechanical Ventilator 30 30 09/19/19 01:25 72 19 30 09/19/19 00:20 150/78 09/19/19 00:00 97.9 68 19 150/78 (102) 100 09/19/19 00:00 30 09/19/19 00:00 Mechanical Ventilator Mechanical Ventilator Mechanical Ventilator Mechanical Ventilator 09/19/19 00:00 70 09/18/19 23:40 73 19 100 Mechanical Ventilator 30 09/18/19 23:25 68 19 Mechanical Ventilator 30 30 09/18/19 20:47 65 18 30 09/18/19 20:00 97.5 70 16 144/72 (96) 100 09/18/19 20:00 Mechanical Ventilator Mechanical Ventilator Mechanical Ventilator Mechanical Ventilator 09/18/19 20:00 30 09/18/19 19:45 73 22 100 Mechanical Ventilator 30 09/18/19 19:30 73 18 Mechanical Ventilator 30 30 09/18/19 19:06 70 09/18/19 17:32 68 153/67 09/18/19 17:31 153/72 09/18/19 16:48 60 18 30 09/18/19 16:00 98.1 74 18 153/67 (95) 100 09/18/19 16:00 67 09/18/19 16:00 Mechanical Ventilator Mechanical Ventilator Mechanical Ventilator Mechanical Ventilator 09/18/19 16:00 30 09/18/19 15:27 75 18 100 Mechanical Ventilator 30 78 18 30 09/18/19 12:46 75 20 30 09/18/19 12:24 137/71 09/18/19 12:00 Mechanical Ventilator Mechanical Ventilator Mechanical Ventilator Mechanical Ventilator 09/18/19 12:00 72 09/18/19 12:00 30 09/18/19 12:00 97.8 67 18 137/70 (92) 100 09/18/19 11:29 62 18 100 Mechanical Ventilator 30 62 18 30 Intake and Output 09/18/19 09/19/19 19:00 07:00 Intake Total 485 ml 550 ml Output Total 150 ml 100 ml Balance 335 ml 450 ml Intake Free Water 100 ml 200 ml Tube Feeding 385 ml 350 ml Output Urine Total 150 ml 100 ml # Bowel Movements 6 3 Laboratory Tests 09/19/19 05:30: White Blood Count 10.1, Red Blood Count 3.39L, Hemoglobin 9.9L, Hematocrit 29.6L , Mean Corpuscular Volume 87, Mean Corpuscular Hemoglobin 29.3, Mean Corpuscular Hemoglobin Concent 33.5, Red Cell Distribution Width 15.0H, Platelet Count 529H, Mean Platelet Volume 4.7L, Neutrophils (%) (Auto) 64.4, Lymphocytes (%) (Auto) 30.7, Monocytes (%) (Auto) 3.8, Eosinophils (%) (Auto) 0.5, Basophils (%) (Auto) 0.6, Sodium Level 136, Potassium Level 4.0, Chloride Level 99, Carbon Dioxide Level 27, Anion Gap 10, Blood Urea Nitrogen 81H, Creatinine 3.2H, Estimat Glomerular Filtration Rate 13.9, Glucose Level 69L, Calcium Level 8.5, Phosphorus Level 3.3, Magnesium Level 2.2, Total Bilirubin 0.6, Aspartate Amino Transf (AST/SGOT) 158H, Alanine Aminotransferase (ALT/SGPT ) 69, Alkaline Phosphatase 209H, C-Reactive Protein, Quantitative 13.6H, Pro-B- Type Natriuretic Peptide > 07310A, Total Protein 6.9, Albumin 2.3L, Globulin 4.6 , Albumin/Globulin Ratio 0.5L Height (Feet): 5 Height (Inches): 4.00 Weight (Pounds): 112 Objective General Appearance: WD/WN, awake. looks around. no distress. thin and frail Neck: supple +trach Cardiovascular: normal rate Respiratory/Chest: rhonchi - bilaterally Abdomen: normal bowel sounds, non tender, soft, no organomegaly Edema: no edema noted Arm (L), no edema noted Arm (R), no edema noted Leg (L), no edema noted Leg (R), no edema noted Pedal (L), no edema noted Pedal (R), no edema noted Generalized Neurologic: disoriented, aphasia Skin: +excoriations Nate Beltran MD Sep 19, 2019 10:08
--- NOTE | 2019-09-19 10:10 | Critical Care Progress Note ---
Assessment/Plan Assessment/Plan respiratory failure hemoptysis resolved hypoxemia chronic renal failure toxic met encephalopathy severe protein calorie malnutrition cachexia left lung whiteout/collapse, improved with intubation s/p intubation anemia ? blood loss pulmonary edema with elevated BNP + pleural effusion worsening s/p CT placement and removal s/p trach hypernatremia PLAN trach care as is monitor for change care noted and reviewed monitor for fluid retention; reviewed care and continue to monitor retry wean as able prognosis poor overall for change keep negative and monitor osmotic pressures fully dependent close follow up discussed elevated head and monitor ROM watch fluid status and keep negative nutrition and monitor residuals isolation reviewed off load as able and monitor skin exam ROM as able and monitor contractures impression, plan, and exam edited and reviewed in detail care discussed with airplane first officer - Subjective Interval Events: care noted and discussed on vent ROS Limited/Unobtainable: Yes Condition: critical EKG Rhythm: Sinus Rhythm Residuals: minimal Tube Feeding Tolerated: yes I&O: Intake and Output 09/18/19 09/19/19 19:00 07:00 Intake Total 485 ml 550 ml Output Total 150 ml 100 ml Balance 335 ml 450 ml Intake Free Water 100 ml 200 ml Tube Feeding 385 ml 350 ml Output Urine Total 150 ml 100 ml # Bowel Movements 6 3 Critical Care - Objective ET-Tube: 7.0 ET Position: 19 Last 24 Hour Vital Signs Date Time Temp Pulse Resp B/P (MAP) Pulse Ox O2 Delivery O2 Flow Rate FiO2 09/19/19 08:15 65 18 100 Mechanical Ventilator 30 66 18 30 09/19/19 06:07 139/77 09/19/19 05:00 68 18 30 09/19/19 04:00 30 09/19/19 04:00 97.3 72 18 139/77 (97) 100 09/19/19 04:00 Mechanical Ventilator Mechanical Ventilator Mechanical Ventilator Mechanical Ventilator 09/19/19 03:51 72 19 100 Mechanical Ventilator 30 09/19/19 03:37 75 09/19/19 03:36 75 20 Mechanical Ventilator 30 30 09/19/19 01:25 72 19 30 09/19/19 00:20 150/78 09/19/19 00:00 97.9 68 19 150/78 (102) 100 09/19/19 00:00 30 09/19/19 00:00 Mechanical Ventilator Mechanical Ventilator Mechanical Ventilator Mechanical Ventilator 09/19/19 00:00 70 09/18/19 23:40 73 19 100 Mechanical Ventilator 30 09/18/19 23:25 68 19 Mechanical Ventilator 30 30 09/18/19 20:47 65 18 30 09/18/19 20:00 97.5 70 16 144/72 (96) 100 09/18/19 20:00 Mechanical Ventilator Mechanical Ventilator Mechanical Ventilator Mechanical Ventilator 09/18/19 20:00 30 09/18/19 19:45 73 22 100 Mechanical Ventilator 30 09/18/19 19:30 73 18 Mechanical Ventilator 30 30 09/18/19 19:06 70 09/18/19 17:32 68 153/67 09/18/19 17:31 153/72 09/18/19 16:48 60 18 30 09/18/19 16:00 98.1 74 18 153/67 (95) 100 09/18/19 16:00 67 09/18/19 16:00 Mechanical Ventilator Mechanical Ventilator Mechanical Ventilator Mechanical Ventilator 09/18/19 16:00 30 09/18/19 15:27 75 18 100 Mechanical Ventilator 30 78 18 30 09/18/19 12:46 75 20 30 09/18/19 12:24 137/71 09/18/19 12:00 Mechanical Ventilator Mechanical Ventilator Mechanical Ventilator Mechanical Ventilator 09/18/19 12:00 72 09/18/19 12:00 30 09/18/19 12:00 97.8 67 18 137/70 (92) 100 09/18/19 11:29 62 18 100 Mechanical Ventilator 30 62 18 30 Labs: Labs Test 09/19/19 05:30 White Blood Count 10.1 K/UL (4.8-10.8) Red Blood Count 3.39 M/UL (4.20-5.40) Hemoglobin 9.9 G/DL (12.0-16.0) Hematocrit 29.6 % (37.0-47.0) Mean Corpuscular Volume 87 FL (80-99) Mean Corpuscular Hemoglobin 29.3 PG (27.0-31.0) Mean Corpuscular Hemoglobin Concent 33.5 G/DL (32.0-36.0) Red Cell Distribution Width 15.0 % (11.6-14.8) Platelet Count 529 K/UL (150-450) Mean Platelet Volume 4.7 FL (6.5-10.1) Neutrophils (%) (Auto) 64.4 % (45.0-75.0) Lymphocytes (%) (Auto) 30.7 % (20.0-45.0) Monocytes (%) (Auto) 3.8 % (1.0-10.0) Eosinophils (%) (Auto) 0.5 % (0.0-3.0) Basophils (%) (Auto) 0.6 % (0.0-2.0) Sodium Level 136 MMOL/L (136-145) Potassium Level 4.0 MMOL/L (3.5-5.1) Chloride Level 99 MMOL/L (98-107) Carbon Dioxide Level 27 MMOL/L (21-32) Anion Gap 10 mmol/L (5-15) Blood Urea Nitrogen 81 mg/dL (7-18) Creatinine 3.2 MG/DL (0.55-1.30) Estimat Glomerular Filtration Rate 13.9 mL/min (>60) Glucose Level 69 MG/DL (74-106) Calcium Level 8.5 MG/DL (8.5-10.1) Phosphorus Level 3.3 MG/DL (2.5-4.9) Magnesium Level 2.2 MG/DL (1.8-2.4) Total Bilirubin 0.6 MG/DL (0.2-1.0) Aspartate Amino Transf (AST/SGOT) 158 U/L (15-37) Alanine Aminotransferase (ALT/SGPT) 69 U/L (12-78) Alkaline Phosphatase 209 U/L (46-116) C-Reactive Protein, Quantitative 13.6 mg/dL (0.00-0.90) Pro-B-Type Natriuretic Peptide > 77978 pg/mL (0-125) Total Protein 6.9 G/DL (6.4-8.2) Albumin 2.3 G/DL (3.4-5.0) Globulin 4.6 g/dL Albumin/Globulin Ratio 0.5 (1.0-2.7) Objective: WDWN NAD trach in place reduced breath sounds left greater right; no rhonchi [id number] without MRG NABS nontender no HSM no CCE contractures feeding tube in place no distention reduced LOC and weak nonfocal cachectic reviewed and edited Accucheck: 104 Malcolm Cruz MD Sep 19, 2019 10:10
--- NOTE | 2019-09-19 13:12 | Infectious Diseases Prog Note ---
Assessment/Plan Assessment/Plan A; 1. Hailee sepsis treated 2. Klebsiella sepsis , treated 3. Right shoulder septic arthritis, status post surgery. 4. Diabetes. 5. Hypertension. 6. Anemia 7. Thrombocytopenia improving 9. Atelectasis , left lung collapse 10. Pleural effusion, hemothorax 11. Ulcerative esophagitis PLAN: 1. Observe off antibiotic Subjective ROS Limited/Unobtainable: Yes Allergies: Coded Allergies: VANCOMYCIN (Unverified Allergy, Unknown, 08/02/19) Objective Vital Signs Last 24 Hour Vital Signs Date Time Temp Pulse Resp B/P (MAP) Pulse Ox O2 Delivery O2 Flow Rate FiO2 09/19/19 12:00 66 09/19/19 12:00 30 09/19/19 10:02 67 144/72 09/19/19 08:15 65 18 100 Mechanical Ventilator 30 66 18 30 09/19/19 08:00 30 09/19/19 08:00 64 09/19/19 06:07 139/77 09/19/19 05:00 68 18 30 09/19/19 04:00 30 09/19/19 04:00 97.3 72 18 139/77 (97) 100 09/19/19 04:00 Mechanical Ventilator Mechanical Ventilator Mechanical Ventilator Mechanical Ventilator 09/19/19 03:51 72 19 100 Mechanical Ventilator 30 09/19/19 03:37 75 09/19/19 03:36 75 20 Mechanical Ventilator 30 30 09/19/19 01:25 72 19 30 09/19/19 00:20 150/78 09/19/19 00:00 97.9 68 19 150/78 (102) 100 09/19/19 00:00 30 09/19/19 00:00 Mechanical Ventilator Mechanical Ventilator Mechanical Ventilator Mechanical Ventilator 09/19/19 00:00 70 09/18/19 23:40 73 19 100 Mechanical Ventilator 30 09/18/19 23:25 68 19 Mechanical Ventilator 30 30 09/18/19 20:47 65 18 30 09/18/19 20:00 97.5 70 16 144/72 (96) 100 09/18/19 20:00 Mechanical Ventilator Mechanical Ventilator Mechanical Ventilator Mechanical Ventilator 09/18/19 20:00 30 09/18/19 19:45 73 22 100 Mechanical Ventilator 30 09/18/19 19:30 73 18 Mechanical Ventilator 30 30 09/18/19 19:06 70 09/18/19 17:32 68 153/67 09/18/19 17:31 153/72 09/18/19 16:48 60 18 30 09/18/19 16:00 98.1 74 18 153/67 (95) 100 09/18/19 16:00 67 09/18/19 16:00 Mechanical Ventilator Mechanical Ventilator Mechanical Ventilator Mechanical Ventilator 09/18/19 16:00 30 09/18/19 15:27 75 18 100 Mechanical Ventilator 30 78 18 30 Height (Feet): 5 Height (Inches): 4.00 Weight (Pounds): 112 General Appearance: cachetic HEENT: mucous membranes moist Respiratory/Chest: other - coarse sounds on ventilator Cardiovascular: normal rate Abdomen: soft, non tender, other - GT feeding Extremities: no edema Neurologic/Psychiatric: other - sleeping Laboratory Tests Test 09/19/19 05:30 White Blood Count 10.1 K/UL (4.8-10.8) Red Blood Count 3.39 M/UL (4.20-5.40) L Hemoglobin 9.9 G/DL (12.0-16.0) L Hematocrit 29.6 % (37.0-47.0) L Mean Corpuscular Volume 87 FL (80-99) Mean Corpuscular Hemoglobin 29.3 PG (27.0-31.0) Mean Corpuscular Hemoglobin Concent 33.5 G/DL (32.0-36.0) Red Cell Distribution Width 15.0 % (11.6-14.8) H Platelet Count 529 K/UL (150-450) H Mean Platelet Volume 4.7 FL (6.5-10.1) L Neutrophils (%) (Auto) 64.4 % (45.0-75.0) Lymphocytes (%) (Auto) 30.7 % (20.0-45.0) Monocytes (%) (Auto) 3.8 % (1.0-10.0) Eosinophils (%) (Auto) 0.5 % (0.0-3.0) Basophils (%) (Auto) 0.6 % (0.0-2.0) Sodium Level 136 MMOL/L (136-145) Potassium Level 4.0 MMOL/L (3.5-5.1) Chloride Level 99 MMOL/L (98-107) Carbon Dioxide Level 27 MMOL/L (21-32) Anion Gap 10 mmol/L (5-15) Blood Urea Nitrogen 81 mg/dL (7-18) H Creatinine 3.2 MG/DL (0.55-1.30) H Estimat Glomerular Filtration Rate 13.9 mL/min (>60) Glucose Level 69 MG/DL (74-106) L Calcium Level 8.5 MG/DL (8.5-10.1) Phosphorus Level 3.3 MG/DL (2.5-4.9) Magnesium Level 2.2 MG/DL (1.8-2.4) Total Bilirubin 0.6 MG/DL (0.2-1.0) Aspartate Amino Transf (AST/SGOT) 158 U/L (15-37) H Alanine Aminotransferase (ALT/SGPT) 69 U/L (12-78) Alkaline Phosphatase 209 U/L (46-116) H C-Reactive Protein, Quantitative 13.6 mg/dL (0.00-0.90) H Pro-B-Type Natriuretic Peptide > 63425 pg/mL (0-125) H Total Protein 6.9 G/DL (6.4-8.2) Albumin 2.3 G/DL (3.4-5.0) L Globulin 4.6 g/dL Albumin/Globulin Ratio 0.5 (1.0-2.7) L Current Medications Medications (Trade) Dose Ordered Sig/Javier Route PRN Reason Start Time Stop Time Status Last Admin Dose Admin Acetaminophen (Tylenol) 650 mg Q4H PRN GT Mild Pain/Temp > 100.5 09/03/19 07:00 10/03/19 06:59 09/09/19 06:13 Acetylcysteine (Mucomyst) 100 mg Q4HRT [facility] 08/31/19 19:00 11/29/19 18:59 09/19/19 08:22 Albuterol/ Ipratropium (Albuterol/ Ipratropium) 3 ml Q4HRT [facility] 09/17/19 03:00 09/22/19 02:59 09/19/19 08:22 Amlodipine Besylate (Norvasc) 5 mg BID NG 08/23/19 01:45 09/22/19 01:44 09/19/19 10:02 Chlorhexidine Gluconate (Nae-Hex 2%) 1 applic DAILY@1999 TOPIC 09/17/19 20:00 12/16/19 19:59 09/18/19 21:01 Dextrose (Dextrose 50%) 25 ml Q30M PRN IV Hypoglycemia 09/02/19 06:15 12/01/19 06:14 09/04/19 12:11 Dextrose (Dextrose 50%) 50 ml Q30M PRN IV Hypoglycemia 09/02/19 06:15 12/01/19 06:14 Hydralazine HCl (Apresoline) 25 mg Q6HR NG 08/23/19 06:00 09/22/19 05:59 09/19/19 06:07 Levothyroxine Sodium (Synthroid) 100 mcg DAILY@629 ORAL 09/14/19 06:30 09/24/19 06:29 09/19/19 06:07 Warren Parks MD Sep 19, 2019 13:12
--- NOTE | 2019-09-19 14:56 | Surgery Progress Note ---
Surgery Progress Note Subjective Procedure Performed 1. tracheostomy 2 removal of left tube thoracostomy Additional Comments no acute events stable dressings less saturated Objective Last 24 Hour Vital Signs Date Time Temp Pulse Resp B/P (MAP) Pulse Ox O2 Delivery O2 Flow Rate FiO2 09/19/19 14:28 148/75 09/19/19 13:35 65 18 30 09/19/19 12:00 66 09/19/19 12:00 30 09/19/19 12:00 97.3 66 18 148/75 (99) 100 09/19/19 12:00 Mechanical Ventilator Mechanical Ventilator Mechanical Ventilator Mechanical Ventilator 09/19/19 11:24 69 18 30 09/19/19 10:02 67 144/72 09/19/19 08:15 65 18 100 Mechanical Ventilator 30 66 18 30 09/19/19 08:01 97.7 67 18 144/72 (96) 100 09/19/19 08:00 30 09/19/19 08:00 Mechanical Ventilator Mechanical Ventilator Mechanical Ventilator Mechanical Ventilator 09/19/19 08:00 99.8 144/72 (96) 09/19/19 08:00 64 09/19/19 06:07 139/77 09/19/19 05:00 68 18 30 09/19/19 04:00 30 09/19/19 04:00 97.3 72 18 139/77 (97) 100 09/19/19 04:00 Mechanical Ventilator Mechanical Ventilator Mechanical Ventilator Mechanical Ventilator 09/19/19 03:51 72 19 100 Mechanical Ventilator 30 09/19/19 03:37 75 09/19/19 03:36 75 20 Mechanical Ventilator 30 30 09/19/19 01:25 72 19 30 09/19/19 00:20 150/78 09/19/19 00:00 97.9 68 19 150/78 (102) 100 09/19/19 00:00 30 09/19/19 00:00 Mechanical Ventilator Mechanical Ventilator Mechanical Ventilator Mechanical Ventilator 09/19/19 00:00 70 09/18/19 23:40 73 19 100 Mechanical Ventilator 30 09/18/19 23:25 68 19 Mechanical Ventilator 30 30 09/18/19 20:47 65 18 30 09/18/19 20:00 97.5 70 16 144/72 (96) 100 09/18/19 20:00 Mechanical Ventilator Mechanical Ventilator Mechanical Ventilator Mechanical Ventilator 09/18/19 20:00 30 09/18/19 19:45 73 22 100 Mechanical Ventilator 30 09/18/19 19:30 73 18 Mechanical Ventilator 30 30 09/18/19 19:06 70 09/18/19 17:32 68 153/67 09/18/19 17:31 153/72 09/18/19 16:48 60 18 30 09/18/19 16:00 98.1 74 18 153/67 (95) 100 09/18/19 16:00 67 09/18/19 16:00 Mechanical Ventilator Mechanical Ventilator Mechanical Ventilator Mechanical Ventilator 09/18/19 16:00 30 09/18/19 15:27 75 18 100 Mechanical Ventilator 30 78 18 30 I&O Intake and Output 09/18/19 09/19/19 19:00 07:00 Intake Total 485 ml 550 ml Output Total 150 ml 100 ml Balance 335 ml 450 ml Intake Free Water 100 ml 200 ml Tube Feeding 385 ml 350 ml Output Urine Total 150 ml 100 ml # Bowel Movements 6 3 Dressing: saturated - improved Wound: clean Cardiovascular: RSR Respiratory: decreased breath sounds Abdomen: soft, non-tender, present bowel sounds Extremities: no tenderness, no cyanosis Laboratory Tests Test 09/19/19 05:30 White Blood Count 10.1 K/UL (4.8-10.8) Red Blood Count 3.39 M/UL (4.20-5.40) L Hemoglobin 9.9 G/DL (12.0-16.0) L Hematocrit 29.6 % (37.0-47.0) L Mean Corpuscular Volume 87 FL (80-99) Mean Corpuscular Hemoglobin 29.3 PG (27.0-31.0) Mean Corpuscular Hemoglobin Concent 33.5 G/DL (32.0-36.0) Red Cell Distribution Width 15.0 % (11.6-14.8) H Platelet Count 529 K/UL (150-450) H Mean Platelet Volume 4.7 FL (6.5-10.1) L Neutrophils (%) (Auto) 64.4 % (45.0-75.0) Lymphocytes (%) (Auto) 30.7 % (20.0-45.0) Monocytes (%) (Auto) 3.8 % (1.0-10.0) Eosinophils (%) (Auto) 0.5 % (0.0-3.0) Basophils (%) (Auto) 0.6 % (0.0-2.0) Sodium Level 136 MMOL/L (136-145) Potassium Level 4.0 MMOL/L (3.5-5.1) Chloride Level 99 MMOL/L (98-107) Carbon Dioxide Level 27 MMOL/L (21-32) Anion Gap 10 mmol/L (5-15) Blood Urea Nitrogen 81 mg/dL (7-18) H Creatinine 3.2 MG/DL (0.55-1.30) H Estimat Glomerular Filtration Rate 13.9 mL/min (>60) Glucose Level 69 MG/DL (74-106) L Calcium Level 8.5 MG/DL (8.5-10.1) Phosphorus Level 3.3 MG/DL (2.5-4.9) Magnesium Level 2.2 MG/DL (1.8-2.4) Total Bilirubin 0.6 MG/DL (0.2-1.0) Aspartate Amino Transf (AST/SGOT) 158 U/L (15-37) H Alanine Aminotransferase (ALT/SGPT) 69 U/L (12-78) Alkaline Phosphatase 209 U/L (46-116) H C-Reactive Protein, Quantitative 13.6 mg/dL (0.00-0.90) H Pro-B-Type Natriuretic Peptide > 86631 pg/mL (0-125) H Total Protein 6.9 G/DL (6.4-8.2) Albumin 2.3 G/DL (3.4-5.0) L Globulin 4.6 g/dL Albumin/Globulin Ratio 0.5 (1.0-2.7) L Assessment Post-op Diagnosis same Plan Problems: (1) Malnutrition Assessment & Plan: DAILY ESTIMATED NEEDS: Needs based on ESRD+ HD, underweight, wound/ 39.5kg 35-40 kcals/kg 0158-3487 total kcals 1.25-1.8 g protein/kg 49-71 g total protein 20-22 mL/kg 790-869 total fluid mLs NUTRITION DIAGNOSIS: * Increased kcal and protein needs r/t underweight status, HD needs, wuond healing as evidenced by pt is underweight per guidelines, ESRD, on HD, admitted non-blanching erythema wounds @ BL heels and sacrum * Swallowing difficulty R/T dysphagia as evidenced by WORKER'S COMPENSATION CLAIMS EXAMINER recommends temporary nonoral feeding at this time, s/p NGT insertion, on NGT feeding-> now s/p self removal, NPO. CURRENT TF:NPO PO DIET RECOMMENDATIONS: WHEN SAFE FOR ORAL DIET -> renal/ texture per WORKER'S COMPENSATION CLAIMS EXAMINER ENTERAL NUTRITION RECOMMENDATIONS: W/ GI access: Nepro @ 35ml/hr x 22 hrs to provide 770ml, 1386kcal, 62g prot, 560ml free water * W/ GI access, resume TF on Nepro * Initiate Nepro @ 15ml/hr x 6 hrs, advance 10ml q 4-6 hrs as tolerated to goal rate. * Hold 1 hour before and after Synthroid med * HOB over 30 degrees/ water flush per MD. ADDITIONAL RECOMMENDATIONS: 1) Calibrated bed scale wt for accurate CBW -> daily wt monitoring Per HD record: dry wt on 07/30=39.5kg (87lbs) 2) Wound care: (W/ GI access) add Nephorivte x 1 + Balta BID 3) Monitor NPO status: without GI access at this time, s/p pulling out NGT 4) Monitor for hypoglycemia while NPO 5) Monitor for continuity of HD (2) Septic arthritis Assessment & Plan: Pt presented on admission with generalized scaly rash . pt noted to be restless and scratching at skin. Bleeding from oral mucosa noted. Joint deformity noted to R shoulder. Surgical incision approximated with 11 sutures. Erythema but no exudate,or elevation in skin temp at site of incision. Historical incision R hip that is tunneled.Small amt seropurulent exudate noted. Periwound is erythematous,but no elevation in skin temp noted. No odor noted. Non-blanching erythema noted to sacrum. Perianal area is erythematous and excoriated. L heel is boggy with non-blanching erythema. R heel is soft with non-blanching erythema. No evidence of skin breakdown to all other bony prominences. Tx.plan: Cover R shoulder with Drsg and change daily and prn. Cleanse R hip wound with Saline. Apply Therahoney.Apply Cavilon Skin Barrier periwound. Cover with Optifoam drsg. Change every 3 days and prn. Apply Moisture Barrier Paste to perianal area and buttocks. Cover Sacrum with Optifoam drsg. Change every 3 days and prn. Apply Cavilon Skin Barrier to both heels. Cover each heel with Optifoam drsg. Change every 7 days and prn. APM/ELVIA Mattress overlay. Reposition at least every 2hours or as tolerated. Off-load heels with pillow. HD cath necessary HD as renal likely will need intubation (3) Wound, open, hip or thigh with complication Assessment & Plan: slow healing will need nutritional optimization difficult ng tube peg when stable sutures removed from right shoulder comfortable wean vent may need trach (4) Abscess of right hip (5) possible septic arthritis (6) Renal failure (ARF), acute on chronic Assessment & Plan: cont HD will need tunneled cath placement okay to use fem line for now but will need change soon. line monitored and clean dressings going well (7) Pneumonia Assessment & Plan: intubated on vent support not tolerating weaning may need trach hemothorax likely after thoracentesis Chest CT noted Left chest tube placed With plan for trach chest tube can be considered but overall prognosis is very poor s/p trach left chest tub eout cxr noted and okay downgrade left pleural effusion dressings saturated will need to monitor. may need another chest tube as may not heal well on left side Camilo James Sep 19, 2019 14:56
[2019-09-19] MEDS: Dyna-Hex 2% Top Sol 2oz TOPIC SCH (20:17)
--- NOTE | 2019-09-19 20:28 | General Progress Note ---
Assessment/Plan Status: stable, not improved, unchanged, deteriorating Assessment/Plan: Assessment - Severe ulcerative esophagitis - mild elevation in LFT, Hepatitis B/C negative - Resp failure - trach - s/p recent Chest tube and removal - thrombocytopenia --> resolved - Renal failure - aspiration risk --> s/p PEG - anemia - mild elevation in alk phos - bradycardia - Poor prognosis Recommendations - GT care - water flushes - elevate HOB - monitor H&H - follow LFT - Check CPK - normal - vent - placement Subjective Allergies: Coded Allergies: VANCOMYCIN (Unverified Allergy, Unknown, 08/02/19) Subjective Above noted No events overnight awaiting transfer to [facility] Objective Last 24 Hour Vital Signs Date Time Temp Pulse Resp B/P (MAP) Pulse Ox O2 Delivery O2 Flow Rate FiO2 09/19/19 18:51 65 19 30 09/19/19 18:00 65 148/75 09/19/19 18:00 148/75 09/19/19 17:00 69 18 30 09/19/19 16:00 Mechanical Ventilator Mechanical Ventilator Mechanical Ventilator Mechanical Ventilator 09/19/19 16:00 65 09/19/19 16:00 30 09/19/19 16:00 97.2 18 150/74 (99) 100 09/19/19 15:29 70 18 100 Mechanical Ventilator 30 72 18 30 09/19/19 14:28 148/75 09/19/19 13:35 65 18 30 09/19/19 12:00 66 09/19/19 12:00 30 09/19/19 12:00 97.3 66 18 148/75 (99) 100 09/19/19 12:00 Mechanical Ventilator Mechanical Ventilator Mechanical Ventilator Mechanical Ventilator 09/19/19 11:24 69 18 30 09/19/19 10:02 67 144/72 09/19/19 08:15 65 18 100 Mechanical Ventilator 30 66 18 30 09/19/19 08:01 97.7 67 18 144/72 (96) 100 09/19/19 08:00 30 09/19/19 08:00 Mechanical Ventilator Mechanical Ventilator Mechanical Ventilator Mechanical Ventilator 09/19/19 08:00 99.8 144/72 (96) 09/19/19 08:00 64 09/19/19 06:07 139/77 09/19/19 05:00 68 18 30 4/6/20 04:00 30 09/19/19 04:00 97.3 72 18 139/77 (97) 100 09/19/19 04:00 Mechanical Ventilator Mechanical Ventilator Mechanical Ventilator Mechanical Ventilator 09/19/19 03:51 72 19 100 Mechanical Ventilator 30 09/19/19 03:37 75 09/19/19 03:36 75 20 Mechanical Ventilator 30 30 09/19/19 01:25 72 19 30 09/19/19 00:20 150/78 09/19/19 00:00 97.9 68 19 150/78 (102) 100 09/19/19 00:00 30 09/19/19 00:00 Mechanical Ventilator Mechanical Ventilator Mechanical Ventilator Mechanical Ventilator 09/19/19 00:00 70 09/18/19 23:40 73 19 100 Mechanical Ventilator 30 09/18/19 23:25 68 19 Mechanical Ventilator 30 30 09/18/19 20:47 65 18 30 Intake and Output 09/18/19 09/19/19 19:00 07:00 Intake Total 485 ml 550 ml Output Total 150 ml 100 ml Balance 335 ml 450 ml Intake Free Water 100 ml 200 ml Tube Feeding 385 ml 350 ml Output Urine Total 150 ml 100 ml # Bowel Movements 6 3 Laboratory Tests 09/19/19 05:30: White Blood Count 10.1, Red Blood Count 3.39L, Hemoglobin 9.9L, Hematocrit 29.6L , Mean Corpuscular Volume 87, Mean Corpuscular Hemoglobin 29.3, Mean Corpuscular Hemoglobin Concent 33.5, Red Cell Distribution Width 15.0H, Platelet Count 529H, Mean Platelet Volume 4.7L, Neutrophils (%) (Auto) 64.4, Lymphocytes (%) (Auto) 30.7, Monocytes (%) (Auto) 3.8, Eosinophils (%) (Auto) 0.5, Basophils (%) (Auto) 0.6, Sodium Level 136, Potassium Level 4.0, Chloride Level 99, Carbon Dioxide Level 27, Anion Gap 10, Blood Urea Nitrogen 81H, Creatinine 3.2H, Estimat Glomerular Filtration Rate 13.9, Glucose Level 69L, Calcium Level 8.5, Phosphorus Level 3.3, Magnesium Level 2.2, Total Bilirubin 0.6, Aspartate Amino Transf (AST/SGOT) 158H, Alanine Aminotransferase (ALT/SGPT ) 69, Alkaline Phosphatase 209H, C-Reactive Protein, Quantitative 13.6H, Pro-B- Type Natriuretic Peptide > 36286J, Total Protein 6.9, Albumin 2.3L, Globulin 4.6 , Albumin/Globulin Ratio 0.5L Height (Feet): 5 Height (Inches): 4.00 Weight (Pounds): 112 Objective Debilitated frail woman NCAT (+) on vent supple, (+) trach scattered ronchi RR abd soft ND NT, (+) GT no edema Cristy Elizondo MD Sep 19, 2019 20:28
[2019-09-20] VITALS: BP 148/74
[2019-09-20] MEDS: Acetaminophen 650mg/20.3ml GT PRN (01:54)
--- NOTE | 2019-09-20 02:44 | Progress Note ---
DATE: 09/19/2019 CARDIOLOGY PROGRESS NOTE SUBJECTIVE: The patient remains on ventilator support. Weaning efforts ongoing. She is tolerating feedings by GJ tube. The patient has sinus rhythm. Rare atrial ectopics. The patient is on hemodialysis with ultrafiltration 3 times a week. PHYSICAL EXAMINATION: VITAL SIGNS: Blood pressure 144/72, heart rate 67, respirations 18. LUNGS: With few rhonchi. CARDIAC: Regular. Normal S1, S2 with a fourth heart sound. ABDOMEN: Soft. Tube site intact. EXTREMITIES: With no edema. LABORATORY DATA: Potassium 4, BUN 81, creatinine 3.2. Pro natriuretic peptide over 35,000. White count 10, hemoglobin 10. IMPRESSION: Stable for subacute level of care. However, case management continues to have difficulty securing a site in view of her trach, vent, and dialysis status. Cardiovascular parameters remained stable. Her cardiovascular regimen is reviewed and to be continued at this time without change and hemodialysis with ultrafiltration ongoing. Natriuretic peptide assays chronically elevated and should not be checked as it is not useful in clinical management of this patient. Abel Stubbs M.D. DR: NESS JOB#: [id number] CC:
[2019-09-20] MEDS: Albuterol/Ipratropium 3ml neb HHN SCH ×6 (03:59→23:32)
[2019-09-20 04:00] VITALS: BP 151/73
[2019-09-20] MEDS: HydrALAZINE 25mg tab NG SCH ×3 (06:14→22:10)
--- NOTE | 2019-09-20 07:35 | General Progress Note ---
Assessment/Plan Problem List: (1) Hypothyroid ICD Codes: E03.9 - Hypothyroidism, unspecified SNOMED: 04637075 (2) ESRD (end stage renal disease) on dialysis ICD Codes: N18.6 - End stage renal disease; Z99.2 - Dependence on renal dialysis SNOMED: 374457697 (3) Hypotension ICD Codes: I95.9 - Hypotension, unspecified SNOMED: 13419966 Qualifiers: Qualified Codes: I95.3 - Hypotension of hemodialysis (4) Pneumonia ICD Codes: J18.9 - Pneumonia, unspecified organism SNOMED: 190787464 Qualifiers: Qualified Codes: J18.9 - Pneumonia, unspecified organism (5) Diabetes mellitus ICD Codes: E11.9 - Type 2 diabetes mellitus without complications SNOMED: 60086513 Status: stable, not improved, unchanged, deteriorating Assessment/Plan: TSH normalized - he was treated with Levothyroxine IV 50 mcg for couple of weeks - continue Levothyroxine tablet dose to 100 mcg daily - repeat TSH, free 4 this week continue glucose monitoring without insulin coverage hypoglycemia protocol in order Subjective ROS Limited/Unobtainable: Yes Allergies: Coded Allergies: VANCOMYCIN (Unverified Allergy, Unknown, 08/02/19) Subjective events noted interval notes reviewed glucose values are stable on trach vent - waiting for placement Item Value Date Time Bedside Blood Glucose 130 mg/dl H 09/20/19 0600 Bedside Blood Glucose 98 mg/dl 09/20/19 0000 Bedside Blood Glucose 122 mg/dl H 09/19/19 1800 Objective Last 24 Hour Vital Signs Date Time Temp Pulse Resp B/P (MAP) Pulse Ox O2 Delivery O2 Flow Rate FiO2 09/20/19 07:23 73 19 97 Mechanical Ventilator 30 87 18 30 09/20/19 06:14 151/73 09/20/19 05:04 77 18 30 09/20/19 04:00 69 09/20/19 04:00 30 09/20/19 04:00 97.4 96 18 151/73 (99) 98 09/20/19 04:00 Mechanical Ventilator Mechanical Ventilator Mechanical Ventilator Mechanical Ventilator 09/20/19 03:00 71 18 100 Mechanical Ventilator 30 73 17 30 09/20/19 00:40 69 19 30 09/20/19 00:00 Mechanical Ventilator Mechanical Ventilator Mechanical Ventilator Mechanical Ventilator 09/20/19 00:00 97.4 75 19 148/74 (98) 98 09/20/19 00:00 30 09/20/19 00:00 73 09/19/19 22:48 68 18 100 Mechanical Ventilator 30 70 20 30 09/19/19 21:00 67 18 30 09/19/19 20:00 97.3 72 22 154/78 (103) 100 09/19/19 20:00 30 09/19/19 20:00 71 09/19/19 20:00 Mechanical Ventilator Mechanical Ventilator Mechanical Ventilator Mechanical Ventilator 09/19/19 18:51 65 19 100 Mechanical Ventilator 30 67 20 30 09/19/19 18:00 65 148/75 09/19/19 18:00 148/75 09/19/19 17:00 69 18 30 09/19/19 16:00 Mechanical Ventilator Mechanical Ventilator Mechanical Ventilator Mechanical Ventilator 09/19/19 16:00 65 09/19/19 16:00 30 09/19/19 16:00 97.2 18 150/74 (99) 100 09/19/19 15:29 70 18 100 Mechanical Ventilator 30 72 18 30 09/19/19 14:28 148/75 09/19/19 13:35 65 18 30 09/19/19 12:00 66 09/19/19 12:00 30 09/19/19 12:00 97.3 66 18 148/75 (99) 100 09/19/19 12:00 Mechanical Ventilator Mechanical Ventilator Mechanical Ventilator Mechanical Ventilator 09/19/19 11:24 69 18 30 09/19/19 10:02 67 144/72 09/19/19 08:15 65 18 100 Mechanical Ventilator 30 66 18 30 09/19/19 08:01 97.7 67 18 144/72 (96) 100 09/19/19 08:00 30 09/19/19 08:00 Mechanical Ventilator Mechanical Ventilator Mechanical Ventilator Mechanical Ventilator 09/19/19 08:00 99.8 144/72 (96) 09/19/19 08:00 64 Intake and Output 09/19/19 09/20/19 19:00 07:00 Intake Total 690 ml 500 ml Output Total 150 ml 350 ml Balance 540 ml 150 ml Intake Free Water 200 ml 150 ml Tube Feeding 490 ml 350 ml Output Urine Total 150 ml 350 ml # Bowel Movements 6 2 Height (Feet): 5 Height (Inches): 4.00 Weight (Pounds): 112 General Appearance: no apparent distress Neck: normal alignment Respiratory/Chest: rhonchi - bilaterally Abdomen: normal bowel sounds Objective Current Medications Medications (Trade) Dose Ordered Sig/Javier Route PRN Reason Start Time Stop Time Status Last Admin Dose Admin Acetaminophen (Tylenol) 650 mg Q4H PRN GT Mild Pain/Temp > 100.5 09/03/19 07:00 10/03/19 06:59 09/20/19 01:54 Acetylcysteine (Mucomyst) 100 mg Q4HRT N 08/31/19 19:00 11/29/19 18:59 09/20/19 07:06 Albuterol/ Ipratropium (Albuterol/ Ipratropium) 3 ml Q4HRT [facility] 09/17/19 03:00 09/22/19 02:59 09/20/19 07:06 Amlodipine Besylate (Norvasc) 5 mg BID NG 08/23/19 01:45 09/22/19 01:44 09/19/19 18:00 Chlorhexidine Gluconate (Nae-Hex 2%) 1 applic DAILY@1999 TOPIC 09/17/19 20:00 12/16/19 19:59 09/19/19 20:17 Dextrose (Dextrose 50%) 25 ml Q30M PRN IV Hypoglycemia 09/02/19 06:15 12/01/19 06:14 09/04/19 12:11 Dextrose (Dextrose 50%) 50 ml Q30M PRN IV Hypoglycemia 09/02/19 06:15 12/01/19 06:14 Hydralazine HCl (Apresoline) 50 mg Q8HR NG 09/20/19 06:00 12/19/19 05:59 09/20/19 06:14 Levothyroxine Sodium (Synthroid) 100 mcg DAILY@0630 ORAL 09/14/19 06:30 09/24/19 06:29 09/20/19 06:14 Antonio Jacome MD Sep 20, 2019 07:35
[2019-09-20 08:00] VITALS: BP 150/80
--- NOTE | 2019-09-20 10:51 | Infectious Diseases Prog Note ---
Assessment/Plan Assessment/Plan antibiotics : none A 1. jarad albicans fungemia s/p rx 2. right shoulder septic arthritis with staph aureus s/p rx 3. pleural effusion 4. thrombocytopenia resolved 7. diabetes mellitus 8. hypertension 9. respiratory failure P 1. observe off antibiotics Subjective ROS Limited/Unobtainable: Yes Allergies: Coded Allergies: VANCOMYCIN (Unverified Allergy, Unknown, 08/02/19) Objective Vital Signs Last 24 Hour Vital Signs Date Time Temp Pulse Resp B/P (MAP) Pulse Ox O2 Delivery O2 Flow Rate FiO2 09/20/19 09:34 73 151/73 09/20/19 09:00 68 18 30 09/20/19 08:00 Mechanical Ventilator Mechanical Ventilator Mechanical Ventilator Mechanical Ventilator 09/20/19 08:00 30 09/20/19 08:00 94 09/20/19 08:00 97.0 88 18 150/80 (103) 97 09/20/19 07:23 73 19 97 Mechanical Ventilator 30 87 18 30 09/20/19 06:14 151/73 09/20/19 05:04 77 18 30 09/20/19 04:00 69 09/20/19 04:00 30 09/20/19 04:00 97.4 96 18 151/73 (99) 98 09/20/19 04:00 Mechanical Ventilator Mechanical Ventilator Mechanical Ventilator Mechanical Ventilator 09/20/19 03:00 71 18 100 Mechanical Ventilator 30 73 17 30 09/20/19 00:40 69 19 30 09/20/19 00:00 Mechanical Ventilator Mechanical Ventilator Mechanical Ventilator Mechanical Ventilator 09/20/19 00:00 97.4 75 19 148/74 (98) 98 09/20/19 00:00 30 09/20/19 00:00 73 09/19/19 22:48 68 18 100 Mechanical Ventilator 30 70 20 30 09/19/19 21:00 67 18 30 09/19/19 20:00 97.3 72 22 154/78 (103) 100 09/19/19 20:00 30 09/19/19 20:00 71 09/19/19 20:00 Mechanical Ventilator Mechanical Ventilator Mechanical Ventilator Mechanical Ventilator 09/19/19 18:51 65 19 100 Mechanical Ventilator 30 67 20 30 09/19/19 18:00 65 148/75 09/19/19 18:00 148/75 09/19/19 17:00 69 18 30 09/19/19 16:00 Mechanical Ventilator Mechanical Ventilator Mechanical Ventilator Mechanical Ventilator 09/19/19 16:00 65 09/19/19 16:00 30 09/19/19 16:00 97.2 18 150/74 (99) 100 09/19/19 15:29 70 18 100 Mechanical Ventilator 30 72 18 30 09/19/19 14:28 148/75 09/19/19 13:35 65 18 30 09/19/19 12:00 66 09/19/19 12:00 30 09/19/19 12:00 97.3 66 18 148/75 (99) 100 09/19/19 12:00 Mechanical Ventilator Mechanical Ventilator Mechanical Ventilator Mechanical Ventilator 09/19/19 11:24 69 18 30 Height (Feet): 5 Height (Inches): 4.00 Weight (Pounds): 112 Respiratory/Chest: lungs clear Cardiovascular: normal rate, regular rhythm, no gallop/murmur Abdomen: soft, non tender Extremities: no edema Current Medications Medications (Trade) Dose Ordered Sig/Javier Route PRN Reason Start Time Stop Time Status Last Admin Dose Admin Acetaminophen (Tylenol) 650 mg Q4H PRN GT Mild Pain/Temp > 100.5 09/03/19 07:00 10/03/19 06:59 09/20/19 01:54 Acetylcysteine (Mucomyst) 100 mg Q4HRT N 08/31/19 19:00 11/29/19 18:59 09/20/19 07:06 Albuterol/ Ipratropium (Albuterol/ Ipratropium) 3 ml Q4HRT [facility] 09/17/19 03:00 09/22/19 02:59 09/20/19 07:06 Amlodipine Besylate (Norvasc) 5 mg BID NG 08/23/19 01:45 09/22/19 01:44 09/20/19 09:34 Chlorhexidine Gluconate (Nae-Hex 2%) 1 applic DAILY@1999 TOPIC 09/17/19 20:00 12/16/19 19:59 09/19/19 20:17 Dextrose (Dextrose 50%) 25 ml Q30M PRN IV Hypoglycemia 09/02/19 06:15 12/01/19 06:14 09/04/19 12:11 Dextrose (Dextrose 50%) 50 ml Q30M PRN IV Hypoglycemia 09/02/19 06:15 12/01/19 06:14 Hydralazine HCl (Apresoline) 50 mg Q8HR NG 09/20/19 06:00 12/19/19 05:59 09/20/19 06:14 Levothyroxine Sodium (Synthroid) 100 mcg DAILY@0630 ORAL 09/14/19 06:30 09/24/19 06:29 09/20/19 06:14 Melissa Solares MD Sep 20, 2019 10:51
--- NOTE | 2019-09-20 11:10 | Critical Care Progress Note ---
Assessment/Plan Assessment/Plan respiratory failure hemoptysis resolved hypoxemia chronic renal failure toxic met encephalopathy severe protein calorie malnutrition cachexia left lung whiteout/collapse, improved with intubation s/p intubation anemia ? blood loss pulmonary edema with elevated BNP + pleural effusion worsening s/p CT placement and removal s/p trach hypernatremia PLAN trach care as is monitor for change care noted and reviewed monitor for fluid retention; imaging prn reviewed care and continue to monitor wean as able prognosis poor overall for change keep negative and monitor osmotic pressures fully dependent close follow up discussed elevated head and monitor ROM watch fluid status and keep negative nutrition and monitor residuals isolation reviewed off load as able and monitor skin exam ROM as able and monitor contractures prognosis poor for recovery impression, plan, and exam edited and reviewed in detail care discussed with social service assistant - Subjective ROS Limited/Unobtainable: Yes Condition: unchanged EKG Rhythm: Sinus Rhythm Residuals: minimal Tube Feeding Tolerated: yes I&O: Intake and Output 09/19/19 09/20/19 19:00 07:00 Intake Total 690 ml 500 ml Output Total 150 ml 350 ml Balance 540 ml 150 ml Intake Free Water 200 ml 150 ml Tube Feeding 490 ml 350 ml Output Urine Total 150 ml 350 ml # Bowel Movements 6 2 Critical Care - Objective ET-Tube: 7.0 ET Position: 19 Last 24 Hour Vital Signs Date Time Temp Pulse Resp B/P (MAP) Pulse Ox O2 Delivery O2 Flow Rate FiO2 09/20/19 09:34 73 151/73 09/20/19 09:00 68 18 30 09/20/19 08:00 Mechanical Ventilator Mechanical Ventilator Mechanical Ventilator Mechanical Ventilator 09/20/19 08:00 30 09/20/19 08:00 94 09/20/19 08:00 97.0 88 18 150/80 (103) 97 09/20/19 07:23 73 19 97 Mechanical Ventilator 30 87 18 30 09/20/19 06:14 151/73 09/20/19 05:04 77 18 30 09/20/19 04:00 69 09/20/19 04:00 30 09/20/19 04:00 97.4 96 18 151/73 (99) 98 09/20/19 04:00 Mechanical Ventilator Mechanical Ventilator Mechanical Ventilator Mechanical Ventilator 09/20/19 03:00 71 18 100 Mechanical Ventilator 30 73 17 30 09/20/19 00:40 69 19 30 4/7/20 00:00 Mechanical Ventilator Mechanical Ventilator Mechanical Ventilator Mechanical Ventilator 09/20/19 00:00 97.4 75 19 148/74 (98) 98 09/20/19 00:00 30 09/20/19 00:00 73 09/19/19 22:48 68 18 100 Mechanical Ventilator 30 70 20 30 09/19/19 21:00 67 18 30 09/19/19 20:00 97.3 72 22 154/78 (103) 100 09/19/19 20:00 30 09/19/19 20:00 71 09/19/19 20:00 Mechanical Ventilator Mechanical Ventilator Mechanical Ventilator Mechanical Ventilator 09/19/19 18:51 65 19 100 Mechanical Ventilator 30 67 20 30 09/19/19 18:00 65 148/75 09/19/19 18:00 148/75 09/19/19 17:00 69 18 30 09/19/19 16:00 Mechanical Ventilator Mechanical Ventilator Mechanical Ventilator Mechanical Ventilator 09/19/19 16:00 65 09/19/19 16:00 30 09/19/19 16:00 97.2 18 150/74 (99) 100 09/19/19 15:29 70 18 100 Mechanical Ventilator 30 72 18 30 09/19/19 14:28 148/75 09/19/19 13:35 65 18 30 09/19/19 12:00 66 09/19/19 12:00 30 09/19/19 12:00 97.3 66 18 148/75 (99) 100 09/19/19 12:00 Mechanical Ventilator Mechanical Ventilator Mechanical Ventilator Mechanical Ventilator 09/19/19 11:24 69 18 30 Objective: WDWN NAD trach in place reduced breath sounds left greater right; no rhonchi [id number] without MRG NABS nontender no HSM no CCE contractures feeding tube in place no distention reduced LOC and weak nonfocal cachectic reviewed and edited Accucheck: 130 Malcolm Cruz MD Sep 20, 2019 11:10
[2019-09-20 12:00] VITALS: BP 160/80
--- NOTE | 2019-09-20 12:48 | Surgery Progress Note ---
Surgery Progress Note Subjective Procedure Performed 1. tracheostomy 2 removal of left tube thoracostomy Additional Comments no acute events exam stable Objective Last 24 Hour Vital Signs Date Time Temp Pulse Resp B/P (MAP) Pulse Ox O2 Delivery O2 Flow Rate FiO2 09/20/19 12:30 87 19 30 09/20/19 12:00 30 09/20/19 12:00 97.0 88 18 160/80 (106) 97 09/20/19 12:00 Mechanical Ventilator Mechanical Ventilator Mechanical Ventilator Mechanical Ventilator 09/20/19 11:41 78 18 100 Mechanical Ventilator 30 80 19 30 09/20/19 09:34 73 151/73 09/20/19 09:00 68 18 30 09/20/19 08:00 Mechanical Ventilator Mechanical Ventilator Mechanical Ventilator Mechanical Ventilator 09/20/19 08:00 30 09/20/19 08:00 94 09/20/19 08:00 97.0 88 18 150/80 (103) 97 09/20/19 07:23 73 19 97 Mechanical Ventilator 30 87 18 30 09/20/19 06:14 151/73 09/20/19 05:04 77 18 30 09/20/19 04:00 69 09/20/19 04:00 30 09/20/19 04:00 97.4 96 18 151/73 (99) 98 09/20/19 04:00 Mechanical Ventilator Mechanical Ventilator Mechanical Ventilator Mechanical Ventilator 09/20/19 03:00 71 18 100 Mechanical Ventilator 30 73 17 30 09/20/19 00:40 69 19 30 09/20/19 00:00 Mechanical Ventilator Mechanical Ventilator Mechanical Ventilator Mechanical Ventilator 09/20/19 00:00 97.4 75 19 148/74 (98) 98 09/20/19 00:00 30 09/20/19 00:00 73 09/19/19 22:48 68 18 100 Mechanical Ventilator 30 70 20 30 09/19/19 21:00 67 18 30 09/19/19 20:00 97.3 72 22 154/78 (103) 100 09/19/19 20:00 30 09/19/19 20:00 71 09/19/19 20:00 Mechanical Ventilator Mechanical Ventilator Mechanical Ventilator Mechanical Ventilator 09/19/19 18:51 65 19 100 Mechanical Ventilator 30 67 20 30 09/19/19 18:00 65 148/75 09/19/19 18:00 148/75 09/19/19 17:00 69 18 30 09/19/19 16:00 Mechanical Ventilator Mechanical Ventilator Mechanical Ventilator Mechanical Ventilator 09/19/19 16:00 65 09/19/19 16:00 30 09/19/19 16:00 97.2 18 150/74 (99) 100 09/19/19 15:29 70 18 100 Mechanical Ventilator 30 72 18 30 09/19/19 14:28 148/75 09/19/19 13:35 65 18 30 I&O Intake and Output 09/19/19 09/20/19 19:00 07:00 Intake Total 690 ml 500 ml Output Total 150 ml 350 ml Balance 540 ml 150 ml Intake Free Water 200 ml 150 ml Tube Feeding 490 ml 350 ml Output Urine Total 150 ml 350 ml # Bowel Movements 6 2 Dressing: saturated Wound: clean Cardiovascular: RSR Respiratory: clear, decreased breath sounds Abdomen: soft, non-tender, present bowel sounds Extremities: no edema, no tenderness, no cyanosis Laboratory Tests Test 09/20/19 11:00 Thyroid Stimulating Hormone (TSH) 7.468 uiU/mL (0.358-3.740) Free Thyroxine 1.54 NG/DL (0.76-1.46) H Assessment Post-op Diagnosis same Plan Problems: (1) Malnutrition Assessment & Plan: DAILY ESTIMATED NEEDS: Needs based on ESRD+ HD, underweight, wound/ 39.5kg 35-40 kcals/kg 6372-0304 total kcals 1.25-1.8 g protein/kg 49-71 g total protein 20-22 mL/kg 790-869 total fluid mLs NUTRITION DIAGNOSIS: * Increased kcal and protein needs r/t underweight status, HD needs, wuond healing as evidenced by pt is underweight per guidelines, ESRD, on HD, admitted non-blanching erythema wounds @ BL heels and sacrum * Swallowing difficulty R/T dysphagia as evidenced by DOOR ATTENDANT recommends temporary nonoral feeding at this time, s/p NGT insertion, on NGT feeding-> now s/p self removal, NPO. CURRENT TF:NPO PO DIET RECOMMENDATIONS: WHEN SAFE FOR ORAL DIET -> renal/ texture per DOOR ATTENDANT ENTERAL NUTRITION RECOMMENDATIONS: W/ GI access: Nepro @ 35ml/hr x 22 hrs to provide 770ml, 1386kcal, 62g prot, 560ml free water * W/ GI access, resume TF on Nepro * Initiate Nepro @ 15ml/hr x 6 hrs, advance 10ml q 4-6 hrs as tolerated to goal rate. * Hold 1 hour before and after Synthroid med * HOB over 30 degrees/ water flush per MD. ADDITIONAL RECOMMENDATIONS: 1) Calibrated bed scale wt for accurate CBW -> daily wt monitoring Per HD record: dry wt on 07/30=39.5kg (87lbs) 2) Wound care: (W/ GI access) add Nephorivte x 1 + Balta BID 3) Monitor NPO status: without GI access at this time, s/p pulling out NGT 4) Monitor for hypoglycemia while NPO 5) Monitor for continuity of HD (2) Septic arthritis Assessment & Plan: Pt presented on admission with generalized scaly rash . pt noted to be restless and scratching at skin. Bleeding from oral mucosa noted. Joint deformity noted to R shoulder. Surgical incision approximated with 11 sutures. Erythema but no exudate,or elevation in skin temp at site of incision. Historical incision R hip that is tunneled.Small amt seropurulent exudate noted. Periwound is erythematous,but no elevation in skin temp noted. No odor noted. Non-blanching erythema noted to sacrum. Perianal area is erythematous and excoriated. L heel is boggy with non-blanching erythema. R heel is soft with non-blanching erythema. No evidence of skin breakdown to all other bony prominences. Tx.plan: Cover R shoulder with Drsg and change daily and prn. Cleanse R hip wound with Saline. Apply Therahoney.Apply Cavilon Skin Barrier periwound. Cover with Optifoam drsg. Change every 3 days and prn. Apply Moisture Barrier Paste to perianal area and buttocks. Cover Sacrum with Optifoam drsg. Change every 3 days and prn. Apply Cavilon Skin Barrier to both heels. Cover each heel with Optifoam drsg. Change every 7 days and prn. APM/ELVIA Mattress overlay. Reposition at least every 2hours or as tolerated. Off-load heels with pillow. HD cath necessary HD as renal likely will need intubation (3) Wound, open, hip or thigh with complication Assessment & Plan: slow healing will need nutritional optimization difficult ng tube peg when stable sutures removed from right shoulder comfortable wean vent may need trach (4) Abscess of right hip (5) possible septic arthritis (6) Renal failure (ARF), acute on chronic Assessment & Plan: cont HD will need tunneled cath placement okay to use fem line for now but will need change soon. line monitored and clean dressings going well (7) Pneumonia Assessment & Plan: intubated on vent support not tolerating weaning may need trach hemothorax likely after thoracentesis Chest CT noted Left chest tube placed With plan for trach chest tube can be considered but overall prognosis is very poor s/p trach left chest tub eout cxr noted and okay downgrade left pleural effusion dressings saturated will need to monitor. may need another chest tube as may not heal well on left side Additional Comments repeat am xr Camilo James Sep 20, 2019 12:48
--- NOTE | 2019-09-20 13:45 | Nephrology Progress Note ---
Assessment/Plan Problem List: (1) ESRD (end stage renal disease) on dialysis (2) Malnutrition (3) Anemia in CKD (chronic kidney disease) (4) Hypotension (5) Thrombocytopenia (6) Sepsis Assessment: klebsiella in blood Assessment -Early sepsis with shock. -Healthcare-associated pneumonia. -Severe protein-calorie malnutrition. -Thrombocytopenia. - End-stage renal disease. - History of hypertension. - Bradycardia. - HypoThyroid Plan Labs checked Tracheostomy September 07 Last dialysis September 16, next is ordered for September 20 Chest tube on the left side was put in on September 01 was discontinued September 07 Patient transfused 3 units of packed RBCs for low hemoglobin Remains full code Blood pressure fluctuating, will start hydralazine via NG tube for blood pressure Magnesium and potassium supplement intravenously as needed Patient underwent PEG placement August 16 patient remains intubated on ventilator Discussed with RN Aim to wean from ventilator or consider tracheostomy Permacath was removed on August 12 Dialysis 08/11 Transfusion as needed Patient had hematemesis meds IV as possible Surveillance blood cultures tomorrow Plan to put the permacath back in on Thursday if cultures are negative keep BP and BS in check Inflammatory markers per orders Subjective ROS Limited/Unobtainable: Yes Objective Objective Last 24 Hour Vital Signs Date Time Temp Pulse Resp B/P (MAP) Pulse Ox O2 Delivery O2 Flow Rate FiO2 09/20/19 12:30 87 19 30 09/20/19 12:00 30 09/20/19 12:00 97.0 88 18 160/80 (106) 97 09/20/19 12:00 82 09/20/19 12:00 Mechanical Ventilator Mechanical Ventilator Mechanical Ventilator Mechanical Ventilator 09/20/19 11:41 78 18 100 Mechanical Ventilator 30 80 19 30 09/20/19 09:34 73 151/73 09/20/19 09:00 68 18 30 09/20/19 08:00 Mechanical Ventilator Mechanical Ventilator Mechanical Ventilator Mechanical Ventilator 09/20/19 08:00 30 09/20/19 08:00 94 09/20/19 08:00 97.0 88 18 150/80 (103) 97 09/20/19 07:23 73 19 97 Mechanical Ventilator 30 87 18 30 09/20/19 06:14 151/73 09/20/19 05:04 77 18 30 09/20/19 04:00 69 09/20/19 04:00 30 09/20/19 04:00 97.4 96 18 151/73 (99) 98 09/20/19 04:00 Mechanical Ventilator Mechanical Ventilator Mechanical Ventilator Mechanical Ventilator 09/20/19 03:00 71 18 100 Mechanical Ventilator 30 73 17 30 09/20/19 00:40 69 19 30 09/20/19 00:00 Mechanical Ventilator Mechanical Ventilator Mechanical Ventilator Mechanical Ventilator 09/20/19 00:00 97.4 75 19 148/74 (98) 98 09/20/19 00:00 30 09/20/19 00:00 73 09/19/19 22:48 68 18 100 Mechanical Ventilator 30 70 20 30 09/19/19 21:00 67 18 30 09/19/19 20:00 97.3 72 22 154/78 (103) 100 09/19/19 20:00 30 09/19/19 20:00 71 09/19/19 20:00 Mechanical Ventilator Mechanical Ventilator Mechanical Ventilator Mechanical Ventilator 09/19/19 18:51 65 19 100 Mechanical Ventilator 30 67 20 30 09/19/19 18:00 65 148/75 09/19/19 18:00 148/75 09/19/19 17:00 69 18 30 09/19/19 16:00 Mechanical Ventilator Mechanical Ventilator Mechanical Ventilator Mechanical Ventilator 09/19/19 16:00 65 09/19/19 16:00 30 09/19/19 16:00 97.2 18 150/74 (99) 100 09/19/19 15:29 70 18 100 Mechanical Ventilator 30 72 18 30 09/19/19 14:28 148/75 Intake and Output 09/19/19 09/20/19 19:00 07:00 Intake Total 690 ml 500 ml Output Total 150 ml 350 ml Balance 540 ml 150 ml Intake Free Water 200 ml 150 ml Tube Feeding 490 ml 350 ml Output Urine Total 150 ml 350 ml # Bowel Movements 6 2 Laboratory Tests 09/20/19 11:00: Thyroid Stimulating Hormone (TSH) 7.468H, Free Thyroxine 1.54H Height (Feet): 5 Height (Inches): 4.00 Weight (Pounds): 112 General Appearance: no apparent distress, lethargic EENT: other - Tracheostomy Cardiovascular: normal rate Respiratory/Chest: decreased breath sounds Abdomen: soft, other Objective no change William Blackwood MD Sep 20, 2019 13:45
--- NOTE | 2019-09-20 14:45 | Hematology/Onc Progress Note ---
Assessment/Plan Assessment/Plan # Thrombocytopenia - potential causes multifactorial, evaluate liver and viral etiologies to begin, in this case due to sepsis with septic shock also with cirrhosis and liver disease --> Hep panel and HIV ordered --> neg --> US abd to evaluate for cirrhosis and hsm ordered --> reviewed --> Peripheral smear ordered to evaluate for blasts /schistocytes --> none noted --> abx and other meds have been reviewed --> ok for ppx if plt >50k w/ either heparin or lovenox --> Transfuse if Plt < 20k and fever, or if Plt < 10k without fever --> okay for permacath change once plt better--> for 08/14 --> plt trend: 43-->83-->237k-->292-->341-->315-->388 -->444-->530-->252k-->344- >529 # Anemia of chronic disease due to underlying chronic medical issues, multifactorial v Gi bleed --> Anemia workup has been ordered, rule out gi bleed --> No evidence of hemolysis is noted, peripheral smear has been reviewed. --> Hgb goal >7. Transfuse prn. --> Epogen has been started --> HOLD OFF IRON ferritin is >1000 --> Medications have been reviewed --> low threshold for gi evaluation in case has occult + --> hgb 9-->6.7-->9.2 -->10.5-->10.6 -->10.7-->10-->10.5-->9.8-->10.4-->9.5--> 3.6-->9.6-->9.7-->10-->10.3-->11->9.9 --> blood tx: 08/11, 08/31 --> CT Chest r/o hemothorax --> does show confirmation of a large left hemothorax. Complete atelectasis of the left lower lobe and partial left upper lobe atelectasis demonstrated. Mild rightward shift of the heart and mediastinum. # Sepsis with shock. --> abx as per id, recs noted--> off abx --> pressors as needed # Healthcare-associated pneumonia. --> recs reviewed --> abx: jung/micafungin-->jung-->off --> 08/24 us chest: moderate left pleural effusion # Severe protein-calorie malnutrition. --> nutritional support # End-stage renal disease --> had as renal hd --> with permacath # History of hypertension. --> per cards, now with Bradycardia. # Resp failure s/p vent/trach # HypoThyroid # Ngt feedings # Dvt ppx scd's The timing of this note does not necessarily reflect the time of the patient was seen. Greatly appreciate consultation. Subjective Allergies: Coded Allergies: VANCOMYCIN (Unverified Allergy, Unknown, 08/02/19) Subjective 08/11: no bleeding or chills, labs reviewed, no major bleeding, plt less than 50k 08/12: icu, s/p blood, hgb improved to 9.2, 08/14: icu, pending consent for thora and permacath, labs reviewed 08/15: new permacath placed, no bleeding, for hd, plt much improved, started lovenox sq 08/16: ett to be adjusted, bp on high end, micafungin started, possible bronch 08/17: weaning as per pulm, no events otherwise, labs noted 08/18: no events no bleeding, remains confused on vent, for hd 08/20: icu, failed to wean, labs reviewed, jung 08/21: resting in bed, no overnight events, labs reviewed 08/22: awake, confused, restraints, no overnight events 08/23: no events, no bleeding, on ppi bid 08/24: icu, failed to wean, labs reviewed 08/25: no overnight events, us chest, restraints, afebrile 08/26 difficult in weaning, nad, seen by surg, pulm labs noted 08/27 awake on restraints, thoracentesis for am, labs reviewed 08/29 no bleeding, no night sweats, no major changes, on ppi bid 08/30 no major events, remains on vent, no bleeding, dw pcp 08/31 hgb dropped to 3.6, has been transfused with prbc, in icu, david Rn, ct chest pend 09/01 no major events, no bleeding, labs noted, hgb remains low, hgb 9.6 09/03 lethargic, left chest tube dry/intact, off abx, vent 09/04 remains on a vent, synthroid, labs reviewed 09/05 awake and alert, no acute events, hgb 9.8, no new orders 09/06 no bleeding or chills, labs noted, no major events overnight, dw rn 09/07 no events, no night sweats, no bleeding, no fc, remains agitated in the am 09/08 remains in the icu, trach was done, on vent, abx off, on epo 09/10 transferred to sdu, restraints, vent, labs reviewed 09/11 tube feeds have been ongoing, no f/c, labs reviewed 09/12 no events, no bleeding, no night sweats, hgb 10 09/13 tsh is improved, remains confused, hgb is 11, no bleeding 09/14 no events, no bleeding, labs noted, vitals stable 09/15 confused, no acute events, restraints, dc planning 09/17 no new changes, no recent labs, placement pending 09/18 no events, no bleeding, no night sweats, fevers 09/19 nonverbal, vent, elevated bp, off abx Objective Objective Current Medications Medications (Trade) Dose Ordered Sig/Javier Route PRN Reason Start Time Stop Time Status Last Admin Dose Admin Acetaminophen (Tylenol) 650 mg Q4H PRN GT Mild Pain/Temp > 100.5 09/03/19 07:00 10/03/19 06:59 09/20/19 01:54 Acetylcysteine (Mucomyst) 100 mg Q4HRT [facility] 08/31/19 19:00 11/29/19 18:59 09/20/19 11:26 Albuterol/ Ipratropium (Albuterol/ Ipratropium) 3 ml Q4HRT [facility] 09/17/19 03:00 09/22/19 02:59 09/20/19 11:26 Amlodipine Besylate (Norvasc) 5 mg BID NG 08/23/19 01:45 09/22/19 01:44 09/20/19 09:34 Chlorhexidine Gluconate (Nae-Hex 2%) 1 applic DAILY@1999 TOPIC 09/17/19 20:00 12/16/19 19:59 09/19/19 20:17 Dextrose (Dextrose 50%) 25 ml Q30M PRN IV Hypoglycemia 09/02/19 06:15 12/01/19 06:14 09/04/19 12:11 Dextrose (Dextrose 50%) 50 ml Q30M PRN IV Hypoglycemia 09/02/19 06:15 12/01/19 06:14 Hydralazine HCl (Apresoline) 50 mg Q8HR NG 09/20/19 06:00 12/19/19 05:59 09/20/19 13:49 Levothyroxine Sodium (Synthroid) 100 mcg DAILY@0630 ORAL 09/14/19 06:30 09/24/19 06:29 09/20/19 06:14 Last 24 Hour Vital Signs Date Time Temp Pulse Resp B/P (MAP) Pulse Ox O2 Delivery O2 Flow Rate FiO2 09/20/19 13:49 160/80 09/20/19 12:30 87 19 30 09/20/19 12:00 30 09/20/19 12:00 97.0 88 18 160/80 (106) 97 09/20/19 12:00 82 09/20/19 12:00 Mechanical Ventilator Mechanical Ventilator Mechanical Ventilator Mechanical Ventilator 09/20/19 11:41 78 18 100 Mechanical Ventilator 30 80 19 30 09/20/19 09:34 73 151/73 09/20/19 09:00 68 18 30 09/20/19 08:00 Mechanical Ventilator Mechanical Ventilator Mechanical Ventilator Mechanical Ventilator 09/20/19 08:00 30 09/20/19 08:00 94 09/20/19 08:00 97.0 88 18 150/80 (103) 97 09/20/19 07:23 73 19 97 Mechanical Ventilator 30 87 18 30 09/20/19 06:14 151/73 09/20/19 05:04 77 18 30 09/20/19 04:00 69 09/20/19 04:00 30 09/20/19 04:00 97.4 96 18 151/73 (99) 98 09/20/19 04:00 Mechanical Ventilator Mechanical Ventilator Mechanical Ventilator Mechanical Ventilator 09/20/19 03:00 71 18 100 Mechanical Ventilator 30 73 17 30 09/20/19 00:40 69 19 30 09/20/19 00:00 Mechanical Ventilator Mechanical Ventilator Mechanical Ventilator Mechanical Ventilator 09/20/19 00:00 97.4 75 19 148/74 (98) 98 09/20/19 00:00 30 09/20/19 00:00 73 09/19/19 22:48 68 18 100 Mechanical Ventilator 30 70 20 30 09/19/19 21:00 67 18 30 09/19/19 20:00 97.3 72 22 154/78 (103) 100 09/19/19 20:00 30 09/19/19 20:00 71 09/19/19 20:00 Mechanical Ventilator Mechanical Ventilator Mechanical Ventilator Mechanical Ventilator 09/19/19 18:51 65 19 100 Mechanical Ventilator 30 67 20 30 09/19/19 18:00 65 148/75 09/19/19 18:00 148/75 09/19/19 17:00 69 18 30 09/19/19 16:00 Mechanical Ventilator Mechanical Ventilator Mechanical Ventilator Mechanical Ventilator 09/19/19 16:00 65 09/19/19 16:00 30 09/19/19 16:00 97.2 18 150/74 (99) 100 09/19/19 15:29 70 18 100 Mechanical Ventilator 30 72 18 30 09/19/19 14:28 148/75 09/19/19 13:35 65 18 30 09/19/19 12:00 66 09/19/19 12:00 30 09/19/19 12:00 97.3 66 18 148/75 (99) 100 09/19/19 12:00 Mechanical Ventilator Mechanical Ventilator Mechanical Ventilator Mechanical Ventilator 09/19/19 11:24 69 18 30 09/19/19 10:02 67 144/72 09/19/19 08:15 65 18 100 Mechanical Ventilator 30 66 18 30 09/19/19 08:01 97.7 67 18 144/72 (96) 100 09/19/19 08:00 30 09/19/19 08:00 Mechanical Ventilator Mechanical Ventilator Mechanical Ventilator Mechanical Ventilator 09/19/19 08:00 99.8 144/72 (96) 09/19/19 08:00 64 09/19/19 06:07 139/77 09/19/19 05:00 68 18 30 09/19/19 04:00 30 09/19/19 04:00 97.3 72 18 139/77 (97) 100 09/19/19 04:00 Mechanical Ventilator Mechanical Ventilator Mechanical Ventilator Mechanical Ventilator 09/19/19 03:51 72 19 100 Mechanical Ventilator 30 09/19/19 03:37 75 09/19/19 03:36 75 20 Mechanical Ventilator 30 30 09/19/19 01:25 72 19 30 09/19/19 00:20 150/78 09/19/19 00:00 97.9 68 19 150/78 (102) 100 09/19/19 00:00 30 09/19/19 00:00 Mechanical Ventilator Mechanical Ventilator Mechanical Ventilator Mechanical Ventilator 09/19/19 00:00 70 09/18/19 23:40 73 19 100 Mechanical Ventilator 30 09/18/19 23:25 68 19 Mechanical Ventilator 30 30 09/18/19 20:47 65 18 30 09/18/19 20:00 97.5 70 16 144/72 (96) 100 09/18/19 20:00 Mechanical Ventilator Mechanical Ventilator Mechanical Ventilator Mechanical Ventilator 09/18/19 20:00 30 09/18/19 19:45 73 22 100 Mechanical Ventilator 30 09/18/19 19:30 73 18 Mechanical Ventilator 30 30 09/18/19 19:06 70 09/18/19 17:32 68 153/67 09/18/19 17:31 153/72 09/18/19 16:48 60 18 30 09/18/19 16:00 98.1 74 18 153/67 (95) 100 09/18/19 16:00 67 09/18/19 16:00 Mechanical Ventilator Mechanical Ventilator Mechanical Ventilator Mechanical Ventilator 09/18/19 16:00 30 09/18/19 15:27 75 18 100 Mechanical Ventilator 30 78 18 30 Intake and Output 09/19/19 09/20/19 19:00 07:00 Intake Total 690 ml 500 ml Output Total 150 ml 350 ml Balance 540 ml 150 ml Intake Free Water 200 ml 150 ml Tube Feeding 490 ml 350 ml Output Urine Total 150 ml 350 ml # Bowel Movements 6 2 Labs Test 09/19/19 05:30 09/20/19 11:00 White Blood Count 10.1 K/UL (4.8-10.8) Red Blood Count 3.39 M/UL (4.20-5.40) Hemoglobin 9.9 G/DL (12.0-16.0) Hematocrit 29.6 % (37.0-47.0) Mean Corpuscular Volume 87 FL (80-99) Mean Corpuscular Hemoglobin 29.3 PG (27.0-31.0) Mean Corpuscular Hemoglobin Concent 33.5 G/DL (32.0-36.0) Red Cell Distribution Width 15.0 % (11.6-14.8) Platelet Count 529 K/UL (150-450) Mean Platelet Volume 4.7 FL (6.5-10.1) Neutrophils (%) (Auto) 64.4 % (45.0-75.0) Lymphocytes (%) (Auto) 30.7 % (20.0-45.0) Monocytes (%) (Auto) 3.8 % (1.0-10.0) Eosinophils (%) (Auto) 0.5 % (0.0-3.0) Basophils (%) (Auto) 0.6 % (0.0-2.0) Sodium Level 136 MMOL/L (136-145) Potassium Level 4.0 MMOL/L (3.5-5.1) Chloride Level 99 MMOL/L (98-107) Carbon Dioxide Level 27 MMOL/L (21-32) Anion Gap 10 mmol/L (5-15) Blood Urea Nitrogen 81 mg/dL (7-18) Creatinine 3.2 MG/DL (0.55-1.30) Estimat Glomerular Filtration Rate 13.9 mL/min (>60) Glucose Level 69 MG/DL (74-106) Calcium Level 8.5 MG/DL (8.5-10.1) Phosphorus Level 3.3 MG/DL (2.5-4.9) Magnesium Level 2.2 MG/DL (1.8-2.4) Total Bilirubin 0.6 MG/DL (0.2-1.0) Aspartate Amino Transf (AST/SGOT) 158 U/L (15-37) Alanine Aminotransferase (ALT/SGPT) 69 U/L (12-78) Alkaline Phosphatase 209 U/L (46-116) C-Reactive Protein, Quantitative 13.6 mg/dL (0.00-0.90) Pro-B-Type Natriuretic Peptide > 70893 pg/mL (0-125) Total Protein 6.9 G/DL (6.4-8.2) Albumin 2.3 G/DL (3.4-5.0) Globulin 4.6 g/dL Albumin/Globulin Ratio 0.5 (1.0-2.7) Thyroid Stimulating Hormone (TSH) 7.468 uiU/mL (0.358-3.740) Free Thyroxine 1.54 NG/DL (0.76-1.46) Height (Feet): 5 Height (Inches): 4.00 Weight (Pounds): 112 Objective Physical Exam vitals: reviewed gen: nad pulm: on trach+ / vent, decreased breath sounds left, chest tube+ cv: rrr, no gmr abd: sfot, nt, nd ++ gt ext: no cce Gio Rob MD Sep 20, 2019 14:45
--- NOTE | 2019-09-20 15:33 | General Progress Note ---
Assessment/Plan Problem List: (1) Failure to thrive (0-17) ICD Codes: R62.51 - Failure to thrive (0-17) SNOMED: 630504373 (2) Hypertensive kidney disease ICD Codes: I12.9 - Hypertensive chronic kidney disease with stage 1 through stage 4 chronic kidney disease, or unspecified chronic kidney disease SNOMED: 09362039 (3) Pneumonia ICD Codes: J18.9 - Pneumonia, unspecified organism SNOMED: 707630960 Qualifiers: Qualified Codes: J18.9 - Pneumonia, unspecified organism (4) ESRD (end stage renal disease) ICD Codes: N18.6 - End stage renal disease SNOMED: 07455601 (5) Septic arthritis ICD Codes: M00.9 - Pyogenic arthritis, unspecified SNOMED: 653046033 (6) Thrombocytopenia ICD Codes: D69.6 - Thrombocytopenia, unspecified SNOMED: 863323007 (7) Hypotension ICD Codes: I95.9 - Hypotension, unspecified SNOMED: 91169538 Qualifiers: Qualified Codes: I95.3 - Hypotension of hemodialysis (8) Malnutrition ICD Codes: E46 - Unspecified protein-calorie malnutrition SNOMED: 42995416 Status: stable, not improved, unchanged, deteriorating Assessment/Plan: Continue vent support. Wean as able. Suctioning and pulmonary toilet. Continue G-tube feedings. Monitor residuals Continue current blood pressure regimen with close monitoring of blood pressure. Hemodialysis with ultrafiltration per nephrology. Turn every 2 hours and good skin care. monitor labs Discharge planning in progress Subjective ROS Limited/Unobtainable: No Constitutional: Reports: malaise, weakness HEENT: Reports: no symptoms Cardiovascular: Reports: no symptoms Respiratory: Reports: no symptoms Gastrointestinal/Abdominal: Reports: difficulty swallowing Genitourinary: Reports: no symptoms Neurologic/Psychiatric: Reports: pre-existing deficit Endocrine: Reports: no symptoms Hematologic/Lymphatic: Reports: no symptoms Allergies: Coded Allergies: VANCOMYCIN (Unverified Allergy, Unknown, 08/02/19) All Systems: reviewed and negative except above Subjective There were no overnight events. Patient remained stable on the ventilator. She occasionally opens her eyes. Tolerating feedings. No recent labs noted. itching ? Objective Last 24 Hour Vital Signs Date Time Temp Pulse Resp B/P (MAP) Pulse Ox O2 Delivery O2 Flow Rate FiO2 4/7/20 13:49 160/80 09/20/19 12:30 87 19 30 09/20/19 12:00 30 09/20/19 12:00 97.0 88 18 160/80 (106) 97 09/20/19 12:00 82 09/20/19 12:00 Mechanical Ventilator Mechanical Ventilator Mechanical Ventilator Mechanical Ventilator 09/20/19 11:41 78 18 100 Mechanical Ventilator 30 80 19 30 09/20/19 09:34 73 151/73 09/20/19 09:00 68 18 30 09/20/19 08:00 Mechanical Ventilator Mechanical Ventilator Mechanical Ventilator Mechanical Ventilator 09/20/19 08:00 30 09/20/19 08:00 94 09/20/19 08:00 97.0 88 18 150/80 (103) 97 09/20/19 07:23 73 19 97 Mechanical Ventilator 30 87 18 30 09/20/19 06:14 151/73 09/20/19 05:04 77 18 30 09/20/19 04:00 69 09/20/19 04:00 30 09/20/19 04:00 97.4 96 18 151/73 (99) 98 09/20/19 04:00 Mechanical Ventilator Mechanical Ventilator Mechanical Ventilator Mechanical Ventilator 09/20/19 03:00 71 18 100 Mechanical Ventilator 30 73 17 30 09/20/19 00:40 69 19 30 09/20/19 00:00 Mechanical Ventilator Mechanical Ventilator Mechanical Ventilator Mechanical Ventilator 09/20/19 00:00 97.4 75 19 148/74 (98) 98 09/20/19 00:00 30 09/20/19 00:00 73 09/19/19 22:48 68 18 100 Mechanical Ventilator 30 70 20 30 09/19/19 21:00 67 18 30 09/19/19 20:00 97.3 72 22 154/78 (103) 100 09/19/19 20:00 30 09/19/19 20:00 71 09/19/19 20:00 Mechanical Ventilator Mechanical Ventilator Mechanical Ventilator Mechanical Ventilator 09/19/19 18:51 65 19 100 Mechanical Ventilator 30 67 20 30 09/19/19 18:00 65 148/75 09/19/19 18:00 148/75 09/19/19 17:00 69 18 30 09/19/19 16:00 Mechanical Ventilator Mechanical Ventilator Mechanical Ventilator Mechanical Ventilator 09/19/19 16:00 65 09/19/19 16:00 30 09/19/19 16:00 97.2 18 150/74 (99) 100 Intake and Output 09/19/19 09/20/19 19:00 07:00 Intake Total 690 ml 535 ml Output Total 150 ml 350 ml Balance 540 ml 185 ml Intake Free Water 200 ml 150 ml Tube Feeding 490 ml 385 ml Output Urine Total 150 ml 350 ml # Bowel Movements 6 2 Laboratory Tests 09/20/19 11:00: Thyroid Stimulating Hormone (TSH) 7.468H, Free Thyroxine 1.54H Height (Feet): 5 Height (Inches): 4.00 Weight (Pounds): 112 Objective General Appearance: WD/WN, awake. looks around. no distress. thin and frail Neck: supple +trach Cardiovascular: normal rate Respiratory/Chest: rhonchi - bilaterally Abdomen: normal bowel sounds, non tender, soft, no organomegaly Edema: no edema noted Arm (L), no edema noted Arm (R), no edema noted Leg (L), no edema noted Leg (R), no edema noted Pedal (L), no edema noted Pedal (R), no edema noted Generalized Neurologic: disoriented, aphasia Skin: +excoriations Nate Beltran MD Sep 20, 2019 15:33
[2019-09-20 16:00] VITALS: BP 155/75
[2019-09-20 20:00] VITALS: BP 147/81
[2019-09-20] MEDS: Dyna-Hex 2% Top Sol 2oz TOPIC SCH (20:29)
--- NOTE | 2019-09-20 21:51 | General Progress Note ---
Assessment/Plan Status: stable, not improved, unchanged, deteriorating Assessment/Plan: Assessment - Severe ulcerative esophagitis - mild elevation in LFT, Hepatitis B/C negative - Resp failure - trach - s/p recent Chest tube and removal - thrombocytopenia --> resolved - Renal failure - aspiration risk --> s/p PEG - anemia - mild elevation in alk phos - bradycardia - Poor prognosis Recommendations - GT care - water flushes - elevate HOB - monitor H&H - follow LFT - Check CPK - normal - vent - placement Subjective Allergies: Coded Allergies: VANCOMYCIN (Unverified Allergy, Unknown, 08/02/19) Subjective Above noted No events overnight awaiting transfer to [facility] Objective Last 24 Hour Vital Signs Date Time Temp Pulse Resp B/P (MAP) Pulse Ox O2 Delivery O2 Flow Rate FiO2 09/20/19 20:00 30 09/20/19 20:00 97.0 75 18 147/81 (103) 100 09/20/19 20:00 Mechanical Ventilator Mechanical Ventilator Mechanical Ventilator Mechanical Ventilator 09/20/19 19:55 83 21 100 Mechanical Ventilator 30 85 20 30 09/20/19 18:05 72 155/75 09/20/19 16:30 72 18 30 09/20/19 16:00 97.1 76 20 155/75 (101) 100 09/20/19 16:00 78 09/20/19 16:00 Mechanical Ventilator Mechanical Ventilator Mechanical Ventilator Mechanical Ventilator 09/20/19 16:00 30 09/20/19 13:49 160/80 09/20/19 12:30 87 19 30 09/20/19 12:00 30 09/20/19 12:00 97.0 88 18 160/80 (106) 97 09/20/19 12:00 82 09/20/19 12:00 Mechanical Ventilator Mechanical Ventilator Mechanical Ventilator Mechanical Ventilator 09/20/19 11:41 78 18 100 Mechanical Ventilator 30 80 19 30 09/20/19 09:34 73 151/73 09/20/19 09:00 68 18 30 09/20/19 08:00 Mechanical Ventilator Mechanical Ventilator Mechanical Ventilator Mechanical Ventilator 09/20/19 08:00 30 09/20/19 08:00 94 09/20/19 08:00 97.0 88 18 150/80 (103) 97 09/20/19 07:23 73 19 97 Mechanical Ventilator 30 87 18 30 09/20/19 06:14 151/73 4/7/20 05:04 77 18 30 09/20/19 04:00 69 09/20/19 04:00 30 09/20/19 04:00 97.4 96 18 151/73 (99) 98 09/20/19 04:00 Mechanical Ventilator Mechanical Ventilator Mechanical Ventilator Mechanical Ventilator 09/20/19 03:00 71 18 100 Mechanical Ventilator 30 73 17 30 09/20/19 00:40 69 19 30 09/20/19 00:00 Mechanical Ventilator Mechanical Ventilator Mechanical Ventilator Mechanical Ventilator 09/20/19 00:00 97.4 75 19 148/74 (98) 98 09/20/19 00:00 30 09/20/19 00:00 73 09/19/19 22:48 68 18 100 Mechanical Ventilator 30 70 20 30 Intake and Output 09/19/19 09/20/19 19:00 07:00 Intake Total 690 ml 535 ml Output Total 150 ml 350 ml Balance 540 ml 185 ml Intake Free Water 200 ml 150 ml Tube Feeding 490 ml 385 ml Output Urine Total 150 ml 350 ml # Bowel Movements 6 2 Laboratory Tests 09/20/19 11:00: Thyroid Stimulating Hormone (TSH) 7.468H, Free Thyroxine 1.54H Height (Feet): 5 Height (Inches): 4.00 Weight (Pounds): 112 Objective Debilitated frail woman NCAT (+) on vent supple, (+) trach scattered ronchi RR abd soft ND NT, (+) GT no edema Cristy Elizondo MD Sep 20, 2019 21:51
[2019-09-21] VITALS: BP 148/81
--- NOTE | 2019-09-21 00:45 | Progress Note ---
DATE: 09/20/2019 CARDIOLOGY PROGRESS NOTE SUBJECTIVE: The patient remains on ventilator support. Occasionally interactive. Nonverbal. Eye contact noted. PHYSICAL EXAMINATION: VITAL SIGNS: Blood pressure trend increased up to 160/80, heart rate 87, respiratory rate 19. HEENT: Thin secretions from endotracheal tube. LUNGS: Bilateral breath sounds. Trach with no bleeding. No wheezing. HEART: Regular rhythm and rate. Normal S1, S2. No new murmur. ABDOMEN: Soft. EXTREMITIES: No edema. LABORATORY DATA: TSH is 7.4. IMPRESSION: 1. Hypothyroidism, recurring. 2. Hypertensive heart disease with rising blood pressure. 3. Acute on chronic diastolic congestive heart failure. 4. End-stage renal disease. 5. Ventilator-dependent respiratory failure. 6. History of bradycardia, presently resolved. PLAN: 1. Additional thyroid replacement. 2. Advance antihypertensive therapy. 3. Ventilator support with weaning efforts to trach collar. 4. Discharge planning in progress. Abel Stubbs M.D. DR: NESS JOB#: [id number] CC:
[2019-09-21] MEDS: Albuterol/Ipratropium 3ml neb HHN SCH ×6 (02:59→23:33)
[2019-09-21 04:00] VITALS: BP 151/78
[2019-09-21] MEDS: HydrALAZINE 25mg tab NG SCH ×3 (06:27→17:37)
[2019-09-21 06:42] LABS: BASOPHILS % (AUTO) 0.5 % (0.0-2.0); EOSINOPHILS % (AUTO) 1.9 % (0.0-3.0); HEMATOCRIT 33.2 % (37.0-47.0); LYMPHOCYTES % (AUTO) 17.6 % (20.0-45.0); MEAN CORPUSCULAR VOLUME 89 FL (80-99); MONOCYTES % (AUTO) 2.9 % (1.0-10.0); NEUTROPHILS % (AUTO) 77.1 % (45.0-75.0); PLATELET COUNT 525 K/UL (150-450); RED BLOOD COUNT 3.75 M/UL (4.20-5.40)
--- NOTE | 2019-09-21 07:05 | General Progress Note ---
Assessment/Plan Problem List: (1) Hypothyroid ICD Codes: E03.9 - Hypothyroidism, unspecified SNOMED: 94069014 (2) ESRD (end stage renal disease) on dialysis ICD Codes: N18.6 - End stage renal disease; Z99.2 - Dependence on renal dialysis SNOMED: 447143672 (3) Hypotension ICD Codes: I95.9 - Hypotension, unspecified SNOMED: 22601701 Qualifiers: Qualified Codes: I95.3 - Hypotension of hemodialysis (4) Pneumonia ICD Codes: J18.9 - Pneumonia, unspecified organism SNOMED: 011396657 Qualifiers: Qualified Codes: J18.9 - Pneumonia, unspecified organism (5) Diabetes mellitus ICD Codes: E11.9 - Type 2 diabetes mellitus without complications SNOMED: 27858350 Status: stable, not improved, unchanged, deteriorating Assessment/Plan: TSH is elevated - increase Levothyroxine tablet dose to 125 mcg daily - repeat TSH, free 4 next week continue glucose monitoring without insulin coverage hypoglycemia protocol in order Subjective ROS Limited/Unobtainable: Yes Allergies: Coded Allergies: VANCOMYCIN (Unverified Allergy, Unknown, 08/02/19) Subjective events noted interval notes reviewed glucose values are stable on trach vent - waiting for placement TSH is elevated Item Value Date Time Bedside Blood Glucose 128 mg/dl H 09/21/19 0000 Bedside Blood Glucose 104 mg/dl 09/20/19 1200 Objective Last 24 Hour Vital Signs Date Time Temp Pulse Resp B/P (MAP) Pulse Ox O2 Delivery O2 Flow Rate FiO2 09/21/19 06:27 151/78 09/21/19 05:39 69 18 30 09/21/19 04:00 Mechanical Ventilator Mechanical Ventilator Mechanical Ventilator Mechanical Ventilator 09/21/19 04:00 30 09/21/19 04:00 97.4 69 18 151/78 (102) 100 09/21/19 04:00 64 09/21/19 03:01 69 19 100 Mechanical Ventilator 30 72 20 30 09/21/19 01:24 70 18 30 09/21/19 00:00 97.3 74 18 148/81 (103) 99 09/21/19 00:00 73 09/21/19 00:00 Mechanical Ventilator Mechanical Ventilator Mechanical Ventilator Mechanical Ventilator 09/21/19 00:00 30 09/20/19 23:32 73 18 100 Mechanical Ventilator 40 09/20/19 23:32 73 18 100 Mechanical Ventilator 30 76 20 30 09/20/19 22:10 147/81 09/20/19 21:19 84 19 30 09/20/19 20:00 77 09/20/19 20:00 30 09/20/19 20:00 97.0 75 18 147/81 (103) 100 09/20/19 20:00 Mechanical Ventilator Mechanical Ventilator Mechanical Ventilator Mechanical Ventilator 09/20/19 19:55 83 21 100 Mechanical Ventilator 30 85 20 30 09/20/19 18:05 72 155/75 09/20/19 16:30 72 18 30 09/20/19 16:00 97.1 76 20 155/75 (101) 100 09/20/19 16:00 78 09/20/19 16:00 Mechanical Ventilator Mechanical Ventilator Mechanical Ventilator Mechanical Ventilator 09/20/19 16:00 30 09/20/19 13:49 160/80 09/20/19 12:30 87 19 30 09/20/19 12:00 30 09/20/19 12:00 97.0 88 18 160/80 (106) 97 09/20/19 12:00 82 09/20/19 12:00 Mechanical Ventilator Mechanical Ventilator Mechanical Ventilator Mechanical Ventilator 09/20/19 11:41 78 18 100 Mechanical Ventilator 30 80 19 30 09/20/19 09:34 73 151/73 09/20/19 09:00 68 18 30 09/20/19 08:00 Mechanical Ventilator Mechanical Ventilator Mechanical Ventilator Mechanical Ventilator 09/20/19 08:00 30 09/20/19 08:00 94 09/20/19 08:00 97.0 88 18 150/80 (103) 97 09/20/19 07:23 73 19 97 Mechanical Ventilator 30 87 18 30 Intake and Output 09/20/19 09/21/19 19:00 07:00 Intake Total 520 ml 220 ml Output Total 250 ml Balance 270 ml 220 ml Intake Free Water 100 ml 50 ml Tube Feeding 420 ml 140 ml Other 30 ml Output Urine Total 250 ml # Bowel Movements 2 Laboratory Tests 09/20/19 11:00: Thyroid Stimulating Hormone (TSH) 7.468H, Free Thyroxine 1.54H 09/21/19 06:06: White Blood Count [Pending], Red Blood Count [Pending], Hemoglobin [Pending], Hematocrit [Pending], Mean Corpuscular Volume [Pending], Mean Corpuscular Hemoglobin [Pending], Mean Corpuscular Hemoglobin Concent [Pending], Red Cell Distribution Width [Pending], Platelet Count [Pending], Mean Platelet Volume [ Pending], Neutrophils (%) (Auto) [Pending], Lymphocytes (%) (Auto) [Pending], Monocytes (%) (Auto) [Pending], Eosinophils (%) (Auto) [Pending], Basophils (%) (Auto) [Pending], Sodium Level [Pending], Potassium Level [Pending], Chloride Level [Pending], Carbon Dioxide Level [Pending], Blood Urea Nitrogen [Pending], Creatinine [Pending], Estimat Glomerular Filtration Rate [Pending], Glucose Level [Pending], Calcium Level [Pending], Phosphorus Level [Pending], Total Bilirubin [Pending], Aspartate Amino Transf (AST/SGOT) [Pending], Alanine Aminotransferase (ALT/SGPT) [Pending], Alkaline Phosphatase [Pending], C- Reactive Protein, Quantitative [Pending], Pro-B-Type Natriuretic Peptide [ Pending], Total Protein [Pending], Albumin [Pending], Globulin [Pending] Height (Feet): 5 Height (Inches): 4.00 Weight (Pounds): 112 General Appearance: no apparent distress Neck: normal alignment Cardiovascular: normal rate Respiratory/Chest: lungs clear Objective Current Medications Medications (Trade) Dose Ordered Sig/Javier Route PRN Reason Start Time Stop Time Status Last Admin Dose Admin Acetaminophen (Tylenol) 650 mg Q4H PRN GT Mild Pain/Temp > 100.5 09/03/19 07:00 10/03/19 06:59 09/20/19 01:54 Acetylcysteine (Mucomyst) 100 mg Q4HRT [facility] 08/31/19 19:00 11/29/19 18:59 09/21/19 03:00 Albuterol/ Ipratropium (Albuterol/ Ipratropium) 3 ml Q4HRT [facility] 09/17/19 03:00 09/22/19 02:59 09/21/19 02:59 Amlodipine Besylate (Norvasc) 5 mg BID 08/23/19 01:45 09/22/19 01:44 09/20/19 18:05 Chlorhexidine Gluconate (Nae-Hex 2%) 1 applic DAILY@2000 TOPIC 09/17/19 20:00 12/16/19 19:59 09/20/19 20:29 Dextrose (Dextrose 50%) 25 ml Q30M PRN IV Hypoglycemia 09/02/19 06:15 12/01/19 06:14 09/04/19 12:11 Dextrose (Dextrose 50%) 50 ml Q30M PRN IV Hypoglycemia 09/02/19 06:15 12/01/19 06:14 Hydralazine HCl (Apresoline) 50 mg Q6HR NG 09/21/19 06:00 12/20/19 05:59 09/21/19 06:27 Levothyroxine Sodium (Synthroid) 100 mcg DAILY@629 ORAL 09/14/19 06:30 09/24/19 06:29 09/21/19 06:27 Antonio Jacome MD Sep 21, 2019 07:05
[2019-09-21 07:36] LABS: ALANINE AMINOTRANSFERASE 361 U/L (12-78); ALBUMIN 2.4 G/DL (3.4-5.0); ALBUMIN/GLOBULIN RATIO 0.5 (1.0-2.7); ALKALINE PHOSPHATASE 340 U/L (46-116); ANION GAP 10 mmol/L (5-15); ASPARTATE AMINO TRANSFERASE 853 U/L (15-37); BILIRUBIN,TOTAL 0.5 MG/DL (0.2-1.0); BLOOD UREA NITROGEN 103 mg/dL (7-18); CALCIUM 9.2 MG/DL (8.5-10.1); CARBON DIOXIDE 28 MMOL/L (21-32); CHLORIDE 96 MMOL/L (98-107); CREATININE 3.6 MG/DL (0.55-1.30); PHOSPHORUS 4.9 MG/DL (2.5-4.9); POTASSIUM 3.9 MMOL/L (3.5-5.1); SODIUM 134 MMOL/L (136-145)
[2019-09-21 08:00] VITALS: BP 148/79
--- NOTE | 2019-09-21 09:15 | Hematology/Onc Progress Note ---
Assessment/Plan Assessment/Plan # Thrombocytopenia - potential causes multifactorial, evaluate liver and viral etiologies to begin, in this case due to sepsis with septic shock also with cirrhosis and liver disease --> Hep panel and HIV ordered --> neg --> US abd to evaluate for cirrhosis and hsm ordered --> reviewed --> Peripheral smear ordered to evaluate for blasts /schistocytes --> none noted --> abx and other meds have been reviewed --> ok for ppx if plt >50k w/ either heparin or lovenox --> Transfuse if Plt < 20k and fever, or if Plt < 10k without fever --> okay for permacath change once plt better--> for 08/14 --> plt trend: 43-->83-->237k-->292-->341-->315-->388 -->444-->530-->252k-->344- >529->525k # Anemia of chronic disease due to underlying chronic medical issues, multifactorial v Gi bleed --> Anemia workup has been ordered, rule out gi bleed --> No evidence of hemolysis is noted, peripheral smear has been reviewed. --> Hgb goal >7. Transfuse prn. --> Epogen has been started --> HOLD OFF IRON ferritin is >1000 --> Medications have been reviewed --> low threshold for gi evaluation in case has occult + --> hgb 9-->6.7-->9.2 -->10.5-->10.6 -->10.7-->10-->10.5-->9.8-->10.4-->9.5--> 3.6-->9.6-->9.7-->10-->10.3-->11->9.9 --> blood tx: 08/11, 08/31 --> CT Chest r/o hemothorax --> does show confirmation of a large left hemothorax. Complete atelectasis of the left lower lobe and partial left upper lobe atelectasis demonstrated. Mild rightward shift of the heart and mediastinum. # Sepsis with shock. --> abx as per id, recs noted--> off abx --> pressors as needed # Healthcare-associated pneumonia. --> recs reviewed --> abx: jung/micafungin-->jung-->off --> 08/24 chest: moderate left pleural effusion # Severe protein-calorie malnutrition. --> nutritional support # End-stage renal disease --> had as renal hd --> with permacath # History of hypertension. --> per cards, now with Bradycardia. # Resp failure s/p vent/trach # HypoThyroid # Ngt feedings # Dvt ppx scd's The timing of this note does not necessarily reflect the time of the patient was seen. Greatly appreciate consultation. Subjective Constitutional: Denies: no symptoms, chills, fever, malaise, weakness, other HEENT: Denies: no symptoms, eye pain, blurred vision, tearing, double vision, ear pain, ear discharge, nose pain, nose congestion, throat pain, throat swelling, mouth pain, mouth swelling, other Cardiovascular: Denies: no symptoms, chest pain, edema, irregular heart rate, lightheadedness, palpitations, syncope, other Gastrointestinal/Abdominal: Denies: no symptoms, abdomen distended, abdominal pain, black stools, tarry stools, blood in stool, constipated, diarrhea, difficulty swallowing, nausea, poor appetite, poor fluid intake, rectal bleeding , vomiting, other Neurologic/Psychiatric: Denies: no symptoms, anxiety, depressed, emotional problems, headache, numbness, paresthesia, pre-existing deficit, seizure, tingling, tremors, weakness, other Endocrine: Denies: no symptoms, excessive sweating, flushing, intolerance to cold, intolerance to heat, increased hunger, increased thirst, increased urine, unexplained weight gain, unexplained weight loss, other Hematologic/Lymphatic: Denies: no symptoms, anemia, easy bleeding, easy bruising, adenopathy, other Allergies: Coded Allergies: VANCOMYCIN (Unverified Allergy, Unknown, 08/02/19) Subjective 08/11: no bleeding or chills, labs reviewed, no major bleeding, plt less than 50k 08/12: icu, s/p blood, hgb improved to 9.2, 08/14: icu, pending consent for thora and permacath, labs reviewed 08/15: new permacath placed, no bleeding, for hd, plt much improved, started lovenox sq 08/16: ett to be adjusted, bp on high end, micafungin started, possible bronch 08/17: weaning as per pulm, no events otherwise, labs noted 08/18: no events no bleeding, remains confused on vent, for hd 08/20: icu, failed to wean, labs reviewed, jung 08/21: resting in bed, no overnight events, labs reviewed 08/22: awake, confused, restraints, no overnight events 08/23: no events, no bleeding, on ppi bid 08/24: icu, failed to wean, labs reviewed 08/25: no overnight events, us chest, restraints, afebrile 08/26 difficult in weaning, nad, seen by surg, pulm labs noted 08/27 awake on restraints, thoracentesis for am, labs reviewed 08/29 no bleeding, no night sweats, no major changes, on ppi bid 08/30 no major events, remains on vent, no bleeding, dw pcp 08/31 hgb dropped to 3.6, has been transfused with prbc, in icu, david Rn, ct chest pend 09/01 no major events, no bleeding, labs noted, hgb remains low, hgb 9.6 09/03 lethargic, left chest tube dry/intact, off abx, vent 09/04 remains on a vent, synthroid, labs reviewed 09/05 awake and alert, no acute events, hgb 9.8, no new orders 09/06 no bleeding or chills, labs noted, no major events overnight, david rn 09/07 no events, no night sweats, no bleeding, no fc, remains agitated in the am 09/08 remains in the icu, trach was done, on vent, abx off, on epo 09/10 transferred to sdu, restraints, vent, labs reviewed 09/11 tube feeds have been ongoing, no f/c, labs reviewed 09/12 no events, no bleeding, no night sweats, hgb 10 09/13 tsh is improved, remains confused, hgb is 11, no bleeding 09/14 no events, no bleeding, labs noted, vitals stable 09/15 confused, no acute events, restraints, dc planning 09/17 no new changes, no recent labs, placement pending 09/18 no events, no bleeding, no night sweats, fevers 09/19 nonverbal, vent, elevated bp, off abx 09/20 labs reviewed, david rn, no bleeding, meds reviewed Objective Objective Current Medications Medications (Trade) Dose Ordered Sig/Javier Route PRN Reason Start Time Stop Time Status Last Admin Dose Admin Acetaminophen (Tylenol) 650 mg Q4H PRN GT Mild Pain/Temp > 100.5 09/03/19 07:00 10/03/19 06:59 09/20/19 01:54 Acetylcysteine (Mucomyst) 100 mg Q4HRT N 08/31/19 19:00 11/29/19 18:59 09/21/19 07:49 Albuterol/ Ipratropium (Albuterol/ Ipratropium) 3 ml Q4HRT [facility] 09/17/19 03:00 09/22/19 02:59 09/21/19 07:49 Amlodipine Besylate (Norvasc) 5 mg BID 08/23/19 01:45 09/22/19 01:44 09/20/19 18:05 Chlorhexidine Gluconate (Nae-Hex 2%) 1 applic DAILY@2000 TOPIC 09/17/19 20:00 12/16/19 19:59 09/20/19 20:29 Dextrose (Dextrose 50%) 25 ml Q30M PRN IV Hypoglycemia 09/02/19 06:15 12/01/19 06:14 09/04/19 12:11 Dextrose (Dextrose 50%) 50 ml Q30M PRN IV Hypoglycemia 09/02/19 06:15 12/01/19 06:14 Hydralazine HCl (Apresoline) 50 mg Q6HR NG 09/21/19 06:00 12/20/19 05:59 09/21/19 06:27 Levothyroxine Sodium (Synthroid) 125 mcg DAILY@0630 ORAL 09/22/19 06:30 10/22/19 06:29 Last 24 Hour Vital Signs Date Time Temp Pulse Resp B/P (MAP) Pulse Ox O2 Delivery O2 Flow Rate FiO2 09/21/19 08:54 65 148/79 09/21/19 07:49 66 18 100 Mechanical Ventilator 30 67 19 30 09/21/19 06:27 151/78 09/21/19 05:39 69 18 30 09/21/19 04:00 Mechanical Ventilator Mechanical Ventilator Mechanical Ventilator Mechanical Ventilator 09/21/19 04:00 30 09/21/19 04:00 97.4 69 18 151/78 (102) 100 09/21/19 04:00 64 09/21/19 03:01 69 19 100 Mechanical Ventilator 30 72 20 30 09/21/19 01:24 70 18 30 09/21/19 00:00 97.3 74 18 148/81 (103) 99 09/21/19 00:00 73 09/21/19 00:00 Mechanical Ventilator Mechanical Ventilator Mechanical Ventilator Mechanical Ventilator 09/21/19 00:00 30 09/20/19 23:32 73 18 100 Mechanical Ventilator 40 09/20/19 23:32 73 18 100 Mechanical Ventilator 30 76 20 30 09/20/19 22:10 147/81 09/20/19 21:19 84 19 30 09/20/19 20:00 77 09/20/19 20:00 30 09/20/19 20:00 97.0 75 18 147/81 (103) 100 09/20/19 20:00 Mechanical Ventilator Mechanical Ventilator Mechanical Ventilator Mechanical Ventilator 09/20/19 19:55 83 21 100 Mechanical Ventilator 30 85 20 30 09/20/19 18:05 72 155/75 09/20/19 16:30 72 18 30 09/20/19 16:00 97.1 76 20 155/75 (101) 100 09/20/19 16:00 78 09/20/19 16:00 Mechanical Ventilator Mechanical Ventilator Mechanical Ventilator Mechanical Ventilator 09/20/19 16:00 30 09/20/19 13:49 160/80 09/20/19 12:30 87 19 30 09/20/19 12:00 30 09/20/19 12:00 97.0 88 18 160/80 (106) 97 09/20/19 12:00 82 09/20/19 12:00 Mechanical Ventilator Mechanical Ventilator Mechanical Ventilator Mechanical Ventilator 09/20/19 11:41 78 18 100 Mechanical Ventilator 30 80 19 30 09/20/19 09:34 73 151/73 09/20/19 09:00 68 18 30 09/20/19 08:00 Mechanical Ventilator Mechanical Ventilator Mechanical Ventilator Mechanical Ventilator 09/20/19 08:00 30 09/20/19 08:00 94 09/20/19 08:00 97.0 88 18 150/80 (103) 97 09/20/19 07:23 73 19 97 Mechanical Ventilator 30 87 18 30 09/20/19 06:14 151/73 09/20/19 05:04 77 18 30 09/20/19 04:00 69 09/20/19 04:00 30 09/20/19 04:00 97.4 96 18 151/73 (99) 98 09/20/19 04:00 Mechanical Ventilator Mechanical Ventilator Mechanical Ventilator Mechanical Ventilator 09/20/19 03:00 71 18 100 Mechanical Ventilator 30 73 17 30 09/20/19 00:40 69 19 30 09/20/19 00:00 Mechanical Ventilator Mechanical Ventilator Mechanical Ventilator Mechanical Ventilator 09/20/19 00:00 97.4 75 19 148/74 (98) 98 09/20/19 00:00 30 09/20/19 00:00 73 09/19/19 22:48 68 18 100 Mechanical Ventilator 30 70 20 30 09/19/19 21:00 67 18 30 09/19/19 20:00 97.3 72 22 154/78 (103) 100 09/19/19 20:00 30 09/19/19 20:00 71 09/19/19 20:00 Mechanical Ventilator Mechanical Ventilator Mechanical Ventilator Mechanical Ventilator 09/19/19 18:51 65 19 100 Mechanical Ventilator 30 67 20 30 09/19/19 18:00 65 148/75 09/19/19 18:00 148/75 09/19/19 17:00 69 18 30 09/19/19 16:00 Mechanical Ventilator Mechanical Ventilator Mechanical Ventilator Mechanical Ventilator 09/19/19 16:00 65 09/19/19 16:00 30 09/19/19 16:00 97.2 18 150/74 (99) 100 09/19/19 15:29 70 18 100 Mechanical Ventilator 30 72 18 30 09/19/19 14:28 148/75 09/19/19 13:35 65 18 30 09/19/19 12:00 66 09/19/19 12:00 30 09/19/19 12:00 97.3 66 18 148/75 (99) 100 09/19/19 12:00 Mechanical Ventilator Mechanical Ventilator Mechanical Ventilator Mechanical Ventilator 09/19/19 11:24 69 18 30 09/19/19 10:02 67 144/72 Intake and Output 09/20/19 09/21/19 19:00 07:00 Intake Total 520 ml 480 ml Output Total 250 ml 200 ml Balance 270 ml 280 ml Intake Free Water 100 ml 100 ml Tube Feeding 420 ml 350 ml Other 30 ml Output Urine Total 250 ml 200 ml # Bowel Movements 2 1 Labs Test 09/19/19 05:30 09/20/19 11:00 09/21/19 06:06 White Blood Count 10.1 K/UL (4.8-10.8) 11.0 K/UL (4.8-10.8) Red Blood Count 3.39 M/UL (4.20-5.40) 3.75 M/UL (4.20-5.40) Hemoglobin 9.9 G/DL (12.0-16.0) 11.0 G/DL (12.0-16.0) Hematocrit 29.6 % (37.0-47.0) 33.2 % (37.0-47.0) Mean Corpuscular Volume 87 FL (80-99) 89 FL (80-99) Mean Corpuscular Hemoglobin 29.3 PG (27.0-31.0) 29.2 PG (27.0-31.0) Mean Corpuscular Hemoglobin Concent 33.5 G/DL (32.0-36.0) 33.0 G/DL (32.0-36.0) Red Cell Distribution Width 15.0 % (11.6-14.8) 15.0 % (11.6-14.8) Platelet Count 529 K/UL (150-450) 525 K/UL (150-450) Mean Platelet Volume 4.7 FL (6.5-10.1) 4.9 FL (6.5-10.1) Neutrophils (%) (Auto) 64.4 % (45.0-75.0) 77.1 % (45.0-75.0) Lymphocytes (%) (Auto) 30.7 % (20.0-45.0) 17.6 % (20.0-45.0) Monocytes (%) (Auto) 3.8 % (1.0-10.0) 2.9 % (1.0-10.0) Eosinophils (%) (Auto) 0.5 % (0.0-3.0) 1.9 % (0.0-3.0) Basophils (%) (Auto) 0.6 % (0.0-2.0) 0.5 % (0.0-2.0) Sodium Level 136 MMOL/L (136-145) 134 MMOL/L (136-145) Potassium Level 4.0 MMOL/L (3.5-5.1) 3.9 MMOL/L (3.5-5.1) Chloride Level 99 MMOL/L (98-107) 96 MMOL/L (98-107) Carbon Dioxide Level 27 MMOL/L (21-32) 28 MMOL/L (21-32) Anion Gap 10 mmol/L (5-15) 10 mmol/L (5-15) Blood Urea Nitrogen 81 mg/dL (7-18) 103 mg/dL (7-18) Creatinine 3.2 MG/DL (0.55-1.30) 3.6 MG/DL (0.55-1.30) Estimat Glomerular Filtration Rate 13.9 mL/min (>60) 12.2 mL/min (>60) Glucose Level 69 MG/DL (74-106) 112 MG/DL (74-106) Calcium Level 8.5 MG/DL (8.5-10.1) 9.2 MG/DL (8.5-10.1) Phosphorus Level 3.3 MG/DL (2.5-4.9) 4.9 MG/DL (2.5-4.9) Magnesium Level 2.2 MG/DL (1.8-2.4) Total Bilirubin 0.6 MG/DL (0.2-1.0) 0.5 MG/DL (0.2-1.0) Aspartate Amino Transf (AST/SGOT) 158 U/L (15-37) 853 U/L (15-37) Alanine Aminotransferase (ALT/SGPT) 69 U/L (12-78) 361 U/L (12-78) Alkaline Phosphatase 209 U/L (46-116) 340 U/L (46-116) C-Reactive Protein, Quantitative 13.6 mg/dL (0.00-0.90) 17.0 mg/dL (0.00-0.90) Pro-B-Type Natriuretic Peptide > 71037 pg/mL (0-125) > 77384 pg/mL (0-125) Total Protein 6.9 G/DL (6.4-8.2) 7.4 G/DL (6.4-8.2) Albumin 2.3 G/DL (3.4-5.0) 2.4 G/DL (3.4-5.0) Globulin 4.6 g/dL 5.0 g/dL Albumin/Globulin Ratio 0.5 (1.0-2.7) 0.5 (1.0-2.7) Thyroid Stimulating Hormone (TSH) 7.468 uiU/mL (0.358-3.740) Free Thyroxine 1.54 NG/DL (0.76-1.46) Height (Feet): 5 Height (Inches): 4.00 Weight (Pounds): 112 Objective Physical Exam vitals: reviewed gen: nad pulm: on trach+ / vent, decreased breath sounds left, chest tube+ cv: rrr, no gmr abd: sfot, nt, nd ++ gt ext: no cce Gio Rob MD Sep 21, 2019 09:15
--- NOTE | 2019-09-21 10:12 | Critical Care Progress Note ---
Assessment/Plan Assessment/Plan respiratory failure hemoptysis resolved hypoxemia chronic renal failure toxic met encephalopathy severe protein calorie malnutrition cachexia left lung whiteout/collapse, improved with intubation s/p intubation anemia ? blood loss pulmonary edema with elevated BNP + pleural effusion worsening s/p CT placement and removal s/p trach hypernatremia PLAN trach care as is repeat imaging care noted and reviewed monitor for fluid retention; imaging prn reviewed care and continue to monitor wean unable prognosis poor overall for change keep negative and monitor osmotic pressures fully dependent for now close follow up discussed elevated head and monitor ROM watch fluid status and keep negative nutrition and monitor residuals isolation reviewed off load as able and monitor skin exam ROM as able and monitor contractures prognosis poor for recovery will need LTAC impression, plan, and exam edited and reviewed in detail care discussed with kids activities coach - Subjective Interval Events: on full vent support no recent imaging reviewed support ROS Limited/Unobtainable: Yes Condition: unchanged EKG Rhythm: Sinus Rhythm Residuals: minimal Tube Feeding Tolerated: yes I&O: Intake and Output 09/20/19 09/21/19 19:00 07:00 Intake Total 520 ml 480 ml Output Total 250 ml 200 ml Balance 270 ml 280 ml Intake Free Water 100 ml 100 ml Tube Feeding 420 ml 350 ml Other 30 ml Output Urine Total 250 ml 200 ml # Bowel Movements 2 1 Critical Care - Objective ET-Tube: 7.0 ET Position: 19 Last 24 Hour Vital Signs Date Time Temp Pulse Resp B/P (MAP) Pulse Ox O2 Delivery O2 Flow Rate FiO2 09/21/19 10:06 100 09/21/19 10:02 79 22 30 09/21/19 09:10 70 9 30 30 09/21/19 08:54 65 148/79 09/21/19 07:49 66 18 100 Mechanical Ventilator 30 67 19 30 09/21/19 06:27 151/78 09/21/19 05:39 69 18 30 09/21/19 04:00 Mechanical Ventilator Mechanical Ventilator Mechanical Ventilator Mechanical Ventilator 09/21/19 04:00 30 09/21/19 04:00 97.4 69 18 151/78 (102) 100 09/21/19 04:00 64 09/21/19 03:01 69 19 100 Mechanical Ventilator 30 72 20 30 09/21/19 01:24 70 18 30 09/21/19 00:00 97.3 74 18 148/81 (103) 99 09/21/19 00:00 73 09/21/19 00:00 Mechanical Ventilator Mechanical Ventilator Mechanical Ventilator Mechanical Ventilator 09/21/19 00:00 30 09/20/19 23:32 73 18 100 Mechanical Ventilator 40 09/20/19 23:32 73 18 100 Mechanical Ventilator 30 76 20 30 09/20/19 22:10 147/81 09/20/19 21:19 84 19 30 09/20/19 20:00 77 09/20/19 20:00 30 09/20/19 20:00 97.0 75 18 147/81 (103) 100 09/20/19 20:00 Mechanical Ventilator Mechanical Ventilator Mechanical Ventilator Mechanical Ventilator 09/20/19 19:55 83 21 100 Mechanical Ventilator 30 85 20 30 09/20/19 18:05 72 155/75 09/20/19 16:30 72 18 30 09/20/19 16:00 97.1 76 20 155/75 (101) 100 09/20/19 16:00 78 09/20/19 16:00 Mechanical Ventilator Mechanical Ventilator Mechanical Ventilator Mechanical Ventilator 09/20/19 16:00 30 09/20/19 13:49 160/80 09/20/19 12:30 87 19 30 09/20/19 12:00 30 09/20/19 12:00 97.0 88 18 160/80 (106) 97 09/20/19 12:00 82 09/20/19 12:00 Mechanical Ventilator Mechanical Ventilator Mechanical Ventilator Mechanical Ventilator 09/20/19 11:41 78 18 100 Mechanical Ventilator 30 80 19 30 Labs: Laboratory Tests Test 09/20/19 11:00 09/21/19 06:06 Thyroid Stimulating Hormone (TSH) 7.468 uiU/mL (0.358-3.740) Free Thyroxine 1.54 NG/DL (0.76-1.46) H White Blood Count 11.0 K/UL (4.8-10.8) H Red Blood Count 3.75 M/UL (4.20-5.40) L Hemoglobin 11.0 G/DL (12.0-16.0) L Hematocrit 33.2 % (37.0-47.0) L Mean Corpuscular Volume 89 FL (80-99) Mean Corpuscular Hemoglobin 29.2 PG (27.0-31.0) Mean Corpuscular Hemoglobin Concent 33.0 G/DL (32.0-36.0) Red Cell Distribution Width 15.0 % (11.6-14.8) H Platelet Count 525 K/UL (150-450) H Mean Platelet Volume 4.9 FL (6.5-10.1) L Neutrophils (%) (Auto) 77.1 % (45.0-75.0) H Lymphocytes (%) (Auto) 17.6 % (20.0-45.0) L Monocytes (%) (Auto) 2.9 % (1.0-10.0) Eosinophils (%) (Auto) 1.9 % (0.0-3.0) Basophils (%) (Auto) 0.5 % (0.0-2.0) Sodium Level 134 MMOL/L (136-145) L Potassium Level 3.9 MMOL/L (3.5-5.1) Chloride Level 96 MMOL/L (98-107) L Carbon Dioxide Level 28 MMOL/L (21-32) Anion Gap 10 mmol/L (5-15) Blood Urea Nitrogen 103 mg/dL (7-18) H Creatinine 3.6 MG/DL (0.55-1.30) H Estimat Glomerular Filtration Rate 12.2 mL/min (>60) Glucose Level 112 MG/DL (74-106) H Calcium Level 9.2 MG/DL (8.5-10.1) Phosphorus Level 4.9 MG/DL (2.5-4.9) Total Bilirubin 0.5 MG/DL (0.2-1.0) Aspartate Amino Transf (AST/SGOT) 853 U/L (15-37) H Alanine Aminotransferase (ALT/SGPT) 361 U/L (12-78) H Alkaline Phosphatase 340 U/L (46-116) H C-Reactive Protein, Quantitative 17.0 mg/dL (0.00-0.90) H Pro-B-Type Natriuretic Peptide > 79762 pg/mL (0-125) H Total Protein 7.4 G/DL (6.4-8.2) Albumin 2.4 G/DL (3.4-5.0) L Globulin 5.0 g/dL Albumin/Globulin Ratio 0.5 (1.0-2.7) L Objective: WDWN NAD trach in place reduced breath sounds left greater right; no rhonchi [id number] without MRG NABS nontender no HSM no CCE contractures feeding tube in place no distention reduced LOC and weak nonfocal cachectic reviewed and edited Accucheck: 103 Malcolm Cruz MD Sep 21, 2019 10:12
--- NOTE | 2019-09-21 10:58 | Infectious Diseases Prog Note ---
Assessment/Plan Assessment/Plan antibiotics : none A 1. jarad albicans fungemia s/p rx 2. right shoulder septic arthritis with staph aureus s/p rx 3. pleural effusion 4. thrombocytopenia resolved 7. diabetes mellitus 8. hypertension 9. respiratory failure P 1. observe off antibiotics Subjective ROS Limited/Unobtainable: Yes Allergies: Coded Allergies: VANCOMYCIN (Unverified Allergy, Unknown, 08/02/19) Objective Vital Signs Last 24 Hour Vital Signs Date Time Temp Pulse Resp B/P (MAP) Pulse Ox O2 Delivery O2 Flow Rate FiO2 09/21/19 10:06 100 09/21/19 10:02 79 22 30 09/21/19 09:10 70 9 30 30 09/21/19 08:54 65 148/79 09/21/19 08:00 97.0 65 18 148/79 (102) 100 09/21/19 08:00 30 09/21/19 07:49 66 18 100 Mechanical Ventilator 30 67 19 30 09/21/19 06:27 151/78 09/21/19 05:39 69 18 30 09/21/19 04:00 Mechanical Ventilator Mechanical Ventilator Mechanical Ventilator Mechanical Ventilator 09/21/19 04:00 30 09/21/19 04:00 97.4 69 18 151/78 (102) 100 09/21/19 04:00 64 09/21/19 03:01 69 19 100 Mechanical Ventilator 30 72 20 30 09/21/19 01:24 70 18 30 09/21/19 00:00 97.3 74 18 148/81 (103) 99 09/21/19 00:00 73 09/21/19 00:00 Mechanical Ventilator Mechanical Ventilator Mechanical Ventilator Mechanical Ventilator 09/21/19 00:00 30 09/20/19 23:32 73 18 100 Mechanical Ventilator 40 09/20/19 23:32 73 18 100 Mechanical Ventilator 30 76 20 30 09/20/19 22:10 147/81 09/20/19 21:19 84 19 30 09/20/19 20:00 77 09/20/19 20:00 30 09/20/19 20:00 97.0 75 18 147/81 (103) 100 09/20/19 20:00 Mechanical Ventilator Mechanical Ventilator Mechanical Ventilator Mechanical Ventilator 09/20/19 19:55 83 21 100 Mechanical Ventilator 30 85 20 30 09/20/19 18:05 72 155/75 09/20/19 16:30 72 18 30 09/20/19 16:00 97.1 76 20 155/75 (101) 100 09/20/19 16:00 78 09/20/19 16:00 Mechanical Ventilator Mechanical Ventilator Mechanical Ventilator Mechanical Ventilator 09/20/19 16:00 30 09/20/19 13:49 160/80 09/20/19 12:30 87 19 30 09/20/19 12:00 30 09/20/19 12:00 97.0 88 18 160/80 (106) 97 09/20/19 12:00 82 09/20/19 12:00 Mechanical Ventilator Mechanical Ventilator Mechanical Ventilator Mechanical Ventilator 09/20/19 11:41 78 18 100 Mechanical Ventilator 30 80 19 30 Height (Feet): 5 Height (Inches): 4.00 Weight (Pounds): 112 HEENT: status post trach Respiratory/Chest: lungs clear Cardiovascular: normal rate, regular rhythm, no gallop/murmur Abdomen: soft, non tender, other - GT Extremities: no edema, other - right groin catheter Laboratory Tests Test 09/20/19 11:00 09/21/19 06:06 Thyroid Stimulating Hormone (TSH) 7.468 uiU/mL (0.358-3.740) Free Thyroxine 1.54 NG/DL (0.76-1.46) H White Blood Count 11.0 K/UL (4.8-10.8) H Red Blood Count 3.75 M/UL (4.20-5.40) L Hemoglobin 11.0 G/DL (12.0-16.0) L Hematocrit 33.2 % (37.0-47.0) L Mean Corpuscular Volume 89 FL (80-99) Mean Corpuscular Hemoglobin 29.2 PG (27.0-31.0) Mean Corpuscular Hemoglobin Concent 33.0 G/DL (32.0-36.0) Red Cell Distribution Width 15.0 % (11.6-14.8) H Platelet Count 525 K/UL (150-450) H Mean Platelet Volume 4.9 FL (6.5-10.1) L Neutrophils (%) (Auto) 77.1 % (45.0-75.0) H Lymphocytes (%) (Auto) 17.6 % (20.0-45.0) L Monocytes (%) (Auto) 2.9 % (1.0-10.0) Eosinophils (%) (Auto) 1.9 % (0.0-3.0) Basophils (%) (Auto) 0.5 % (0.0-2.0) Sodium Level 134 MMOL/L (136-145) L Potassium Level 3.9 MMOL/L (3.5-5.1) Chloride Level 96 MMOL/L (98-107) L Carbon Dioxide Level 28 MMOL/L (21-32) Anion Gap 10 mmol/L (5-15) Blood Urea Nitrogen 103 mg/dL (7-18) H Creatinine 3.6 MG/DL (0.55-1.30) H Estimat Glomerular Filtration Rate 12.2 mL/min (>60) Glucose Level 112 MG/DL (74-106) H Calcium Level 9.2 MG/DL (8.5-10.1) Phosphorus Level 4.9 MG/DL (2.5-4.9) Total Bilirubin 0.5 MG/DL (0.2-1.0) Aspartate Amino Transf (AST/SGOT) 853 U/L (15-37) H Alanine Aminotransferase (ALT/SGPT) 361 U/L (12-78) H Alkaline Phosphatase 340 U/L (46-116) H C-Reactive Protein, Quantitative 17.0 mg/dL (0.00-0.90) H Pro-B-Type Natriuretic Peptide > 23940 pg/mL (0-125) H Total Protein 7.4 G/DL (6.4-8.2) Albumin 2.4 G/DL (3.4-5.0) L Globulin 5.0 g/dL Albumin/Globulin Ratio 0.5 (1.0-2.7) L Current Medications Medications (Trade) Dose Ordered Sig/Javier Route PRN Reason Start Time Stop Time Status Last Admin Dose Admin Acetaminophen (Tylenol) 650 mg Q4H PRN GT Mild Pain/Temp > 100.5 09/03/19 07:00 10/03/19 06:59 09/20/19 01:54 Acetylcysteine (Mucomyst) 100 mg Q4HRT HHN 08/31/19 19:00 11/29/19 18:59 09/21/19 07:49 Albuterol/ Ipratropium (Albuterol/ Ipratropium) 3 ml Q4HRT HHN 09/17/19 03:00 09/22/19 02:59 09/21/19 07:49 Amlodipine Besylate (Norvasc) 5 mg BID NG 08/23/19 01:45 09/22/19 01:44 09/20/19 18:05 Chlorhexidine Gluconate (Nae-Hex 2%) 1 applic DAILY@2000 TOPIC 09/17/19 20:00 12/16/19 19:59 09/20/19 20:29 Dextrose (Dextrose 50%) 25 ml Q30M PRN IV Hypoglycemia 09/02/19 06:15 12/01/19 06:14 09/04/19 12:11 Dextrose (Dextrose 50%) 50 ml Q30M PRN IV Hypoglycemia 09/02/19 06:15 12/01/19 06:14 Hydralazine HCl (Apresoline) 50 mg Q6HR NG 09/21/19 06:00 12/20/19 05:59 09/21/19 06:27 Levothyroxine Sodium (Synthroid) 125 mcg DAILY@0630 ORAL 09/22/19 06:30 10/22/19 06:29 Melissa Solares MD Sep 21, 2019 10:58
[2019-09-21 12:00] VITALS: BP 126/74
--- NOTE | 2019-09-21 12:01 | Nephrology Progress Note ---
Assessment/Plan Problem List: (1) ESRD (end stage renal disease) on dialysis (2) Malnutrition (3) Anemia in CKD (chronic kidney disease) (4) Hypotension (5) Thrombocytopenia (6) Sepsis Assessment: klebsiella in blood Assessment -Early sepsis with shock. -Healthcare-associated pneumonia. -Severe protein-calorie malnutrition. -Thrombocytopenia. - End-stage renal disease. - History of hypertension. - Bradycardia. - HypoThyroid Plan Labs checked Tracheostomy September 07 Last dialysis September 16, next is ordered for September 20 Chest tube on the left side was put in on September 01 was discontinued September 07 Patient transfused 3 units of packed RBCs for low hemoglobin Remains full code Blood pressure fluctuating, will start hydralazine via NG tube for blood pressure Magnesium and potassium supplement intravenously as needed Patient underwent PEG placement August 16 patient remains intubated on ventilator Discussed with RN Aim to wean from ventilator or consider tracheostomy Permacath was removed on August 12 Dialysis 08/11 Transfusion as needed Patient had hematemesis meds IV as possible Surveillance blood cultures tomorrow Plan to put the permacath back in on Thursday if cultures are negative keep BP and BS in check Inflammatory markers per orders Subjective ROS Limited/Unobtainable: Yes Objective Objective Last 24 Hour Vital Signs Date Time Temp Pulse Resp B/P (MAP) Pulse Ox O2 Delivery O2 Flow Rate FiO2 09/21/19 11:29 72 18 100 Mechanical Ventilator 30 69 18 30 09/21/19 10:06 100 09/21/19 10:02 79 22 30 09/21/19 09:10 70 9 30 30 09/21/19 08:54 65 148/79 09/21/19 08:00 97.0 65 18 148/79 (102) 100 09/21/19 08:00 30 09/21/19 07:49 66 18 100 Mechanical Ventilator 30 67 19 30 09/21/19 06:27 151/78 09/21/19 05:39 69 18 30 09/21/19 04:00 Mechanical Ventilator Mechanical Ventilator Mechanical Ventilator Mechanical Ventilator 09/21/19 04:00 30 09/21/19 04:00 97.4 69 18 151/78 (102) 100 09/21/19 04:00 64 09/21/19 03:01 69 19 100 Mechanical Ventilator 30 72 20 30 09/21/19 01:24 70 18 30 09/21/19 00:00 97.3 74 18 148/81 (103) 99 09/21/19 00:00 73 09/21/19 00:00 Mechanical Ventilator Mechanical Ventilator Mechanical Ventilator Mechanical Ventilator 09/21/19 00:00 30 09/20/19 23:32 73 18 100 Mechanical Ventilator 40 09/20/19 23:32 73 18 100 Mechanical Ventilator 30 76 20 30 09/20/19 22:10 147/81 09/20/19 21:19 84 19 30 09/20/19 20:00 77 09/20/19 20:00 30 09/20/19 20:00 97.0 75 18 147/81 (103) 100 09/20/19 20:00 Mechanical Ventilator Mechanical Ventilator Mechanical Ventilator Mechanical Ventilator 09/20/19 19:55 83 21 100 Mechanical Ventilator 30 85 20 30 09/20/19 18:05 72 155/75 09/20/19 16:30 72 18 30 09/20/19 16:00 97.1 76 20 155/75 (101) 100 09/20/19 16:00 78 09/20/19 16:00 Mechanical Ventilator Mechanical Ventilator Mechanical Ventilator Mechanical Ventilator 09/20/19 16:00 30 09/20/19 13:49 160/80 09/20/19 12:30 87 19 30 Intake and Output 09/20/19 09/21/19 19:00 07:00 Intake Total 520 ml 480 ml Output Total 250 ml 200 ml Balance 270 ml 280 ml Intake Free Water 100 ml 100 ml Tube Feeding 420 ml 350 ml Other 30 ml Output Urine Total 250 ml 200 ml # Bowel Movements 2 1 Laboratory Tests 09/21/19 06:06: White Blood Count 11.0H, Red Blood Count 3.75L, Hemoglobin 11.0L, Hematocrit 33.2L, Mean Corpuscular Volume 89, Mean Corpuscular Hemoglobin 29.2, Mean Corpuscular Hemoglobin Concent 33.0, Red Cell Distribution Width 15.0H, Platelet Count 525H, Mean Platelet Volume 4.9L, Neutrophils (%) (Auto) 77.1H, Lymphocytes (%) (Auto) 17.6L, Monocytes (%) (Auto) 2.9, Eosinophils (%) (Auto) 1.9, Basophils (%) (Auto) 0.5, Sodium Level 134L, Potassium Level 3.9, Chloride Level 96L, Carbon Dioxide Level 28, Anion Gap 10, Blood Urea Nitrogen 103H, Creatinine 3.6H, Estimat Glomerular Filtration Rate 12.2, Glucose Level 112H, Calcium Level 9.2, Phosphorus Level 4.9, Total Bilirubin 0.5, Aspartate Amino Transf (AST/SGOT) 853H, Alanine Aminotransferase (ALT/SGPT) 361H, Alkaline Phosphatase 340H, C-Reactive Protein, Quantitative 17.0H, Pro-B-Type Natriuretic Peptide > 65935Z, Total Protein 7.4, Albumin 2.4L, Globulin 5.0, Albumin/Globulin Ratio 0.5L Height (Feet): 5 Height (Inches): 4.00 Weight (Pounds): 112 General Appearance: no apparent distress EENT: other - Trached Cardiovascular: normal rate Respiratory/Chest: decreased breath sounds Abdomen: other - PEG Objective no change William Blackwood MD Sep 21, 2019 12:01
--- NOTE | 2019-09-21 12:02 | Diagnostic Imaging Report ---
Indication: Shortness of breath Technique: One view of the chest Comparison: 09/14/2019 Findings: Patient is rotated to the right. There is persistent hazy opacity at the left hemithorax. There is persistent retrocardiac density and nonvisualization of the left hemidiaphragm. There is increased prominence to the interstitial markings on the right and possibly some right perihilar atelectatic changes. The heart size is normal. There is a tracheostomy. Again demonstrated is a chronic right shoulder fracture/dislocation deformity and absence of the humeral head Impression: Left sided hazy opacity and basilar/retrocardiac consolidation, largely unchanged from prior exam of 09/14/2019, likely combination of pleural fluid and atelectasis or consolidation Questionable new or increased interstitial disease in the right lung, may in part be an artifact of patient rotation
--- NOTE | 2019-09-21 13:35 | Surgery Progress Note ---
Surgery Progress Note Subjective Procedure Performed 1. tracheostomy 2 removal of left tube thoracostomy Additional Comments wbc 11k elevated cxr noted lft's elevated Objective Last 24 Hour Vital Signs Date Time Temp Pulse Resp B/P (MAP) Pulse Ox O2 Delivery O2 Flow Rate FiO2 09/21/19 13:22 83 18 30 09/21/19 12:00 126/74 09/21/19 11:29 72 18 100 Mechanical Ventilator 30 69 18 30 09/21/19 10:06 100 09/21/19 10:02 79 22 30 09/21/19 09:10 70 9 30 30 09/21/19 08:54 65 148/79 09/21/19 08:00 97.0 65 18 148/79 (102) 100 09/21/19 08:00 30 09/21/19 07:49 66 18 100 Mechanical Ventilator 30 67 19 30 09/21/19 06:27 151/78 09/21/19 05:39 69 18 30 09/21/19 04:00 Mechanical Ventilator Mechanical Ventilator Mechanical Ventilator Mechanical Ventilator 09/21/19 04:00 30 09/21/19 04:00 97.4 69 18 151/78 (102) 100 09/21/19 04:00 64 09/21/19 03:01 69 19 100 Mechanical Ventilator 30 72 20 30 09/21/19 01:24 70 18 30 09/21/19 00:00 97.3 74 18 148/81 (103) 99 09/21/19 00:00 73 09/21/19 00:00 Mechanical Ventilator Mechanical Ventilator Mechanical Ventilator Mechanical Ventilator 09/21/19 00:00 30 09/20/19 23:32 73 18 100 Mechanical Ventilator 40 09/20/19 23:32 73 18 100 Mechanical Ventilator 30 76 20 30 09/20/19 22:10 147/81 09/20/19 21:19 84 19 30 09/20/19 20:00 77 09/20/19 20:00 30 09/20/19 20:00 97.0 75 18 147/81 (103) 100 09/20/19 20:00 Mechanical Ventilator Mechanical Ventilator Mechanical Ventilator Mechanical Ventilator 09/20/19 19:55 83 21 100 Mechanical Ventilator 30 85 20 30 09/20/19 18:05 72 155/75 09/20/19 16:30 72 18 30 09/20/19 16:00 97.1 76 20 155/75 (101) 100 09/20/19 16:00 78 09/20/19 16:00 Mechanical Ventilator Mechanical Ventilator Mechanical Ventilator Mechanical Ventilator 09/20/19 16:00 30 09/20/19 13:49 160/80 I&O Intake and Output 09/20/19 09/21/19 19:00 07:00 Intake Total 520 ml 480 ml Output Total 250 ml 200 ml Balance 270 ml 280 ml Intake Free Water 100 ml 100 ml Tube Feeding 420 ml 350 ml Other 30 ml Output Urine Total 250 ml 200 ml # Bowel Movements 2 1 Dressing: other Wound: other Drains: other Cardiovascular: RSR Respiratory: decreased breath sounds Abdomen: soft, non-tender, present bowel sounds Extremities: no edema, no tenderness, no cyanosis Laboratory Tests Test 09/21/19 06:06 White Blood Count 11.0 K/UL (4.8-10.8) H Red Blood Count 3.75 M/UL (4.20-5.40) L Hemoglobin 11.0 G/DL (12.0-16.0) L Hematocrit 33.2 % (37.0-47.0) L Mean Corpuscular Volume 89 FL (80-99) Mean Corpuscular Hemoglobin 29.2 PG (27.0-31.0) Mean Corpuscular Hemoglobin Concent 33.0 G/DL (32.0-36.0) Red Cell Distribution Width 15.0 % (11.6-14.8) H Platelet Count 525 K/UL (150-450) H Mean Platelet Volume 4.9 FL (6.5-10.1) L Neutrophils (%) (Auto) 77.1 % (45.0-75.0) H Lymphocytes (%) (Auto) 17.6 % (20.0-45.0) L Monocytes (%) (Auto) 2.9 % (1.0-10.0) Eosinophils (%) (Auto) 1.9 % (0.0-3.0) Basophils (%) (Auto) 0.5 % (0.0-2.0) Sodium Level 134 MMOL/L (136-145) L Potassium Level 3.9 MMOL/L (3.5-5.1) Chloride Level 96 MMOL/L (98-107) L Carbon Dioxide Level 28 MMOL/L (21-32) Anion Gap 10 mmol/L (5-15) Blood Urea Nitrogen 103 mg/dL (7-18) H Creatinine 3.6 MG/DL (0.55-1.30) H Estimat Glomerular Filtration Rate 12.2 mL/min (>60) Glucose Level 112 MG/DL (74-106) H Calcium Level 9.2 MG/DL (8.5-10.1) Phosphorus Level 4.9 MG/DL (2.5-4.9) Total Bilirubin 0.5 MG/DL (0.2-1.0) Aspartate Amino Transf (AST/SGOT) 853 U/L (15-37) H Alanine Aminotransferase (ALT/SGPT) 361 U/L (12-78) H Alkaline Phosphatase 340 U/L (46-116) H C-Reactive Protein, Quantitative 17.0 mg/dL (0.00-0.90) H Pro-B-Type Natriuretic Peptide > 42918 pg/mL (0-125) H Total Protein 7.4 G/DL (6.4-8.2) Albumin 2.4 G/DL (3.4-5.0) L Globulin 5.0 g/dL Albumin/Globulin Ratio 0.5 (1.0-2.7) L Assessment Post-op Diagnosis same Plan Problems: (1) Malnutrition Assessment & Plan: DAILY ESTIMATED NEEDS: Needs based on ESRD+ HD, underweight, wound/ 39.5kg 35-40 kcals/kg 9350-1509 total kcals 1.25-1.8 g protein/kg 49-71 g total protein 20-22 mL/kg 790-869 total fluid mLs NUTRITION DIAGNOSIS: * Increased kcal and protein needs r/t underweight status, HD needs, wuond healing as evidenced by pt is underweight per guidelines, ESRD, on HD, admitted non-blanching erythema wounds @ BL heels and sacrum * Swallowing difficulty R/T dysphagia as evidenced by SLIP TENDER recommends temporary nonoral feeding at this time, s/p NGT insertion, on NGT feeding-> now s/p self removal, NPO. CURRENT TF:NPO PO DIET RECOMMENDATIONS: WHEN SAFE FOR ORAL DIET -> renal/ texture per SLIP TENDER ENTERAL NUTRITION RECOMMENDATIONS: W/ GI access: Nepro @ 35ml/hr x 22 hrs to provide 770ml, 1386kcal, 62g prot, 560ml free water * W/ GI access, resume TF on Nepro * Initiate Nepro @ 15ml/hr x 6 hrs, advance 10ml q 4-6 hrs as tolerated to goal rate. * Hold 1 hour before and after Synthroid med * HOB over 30 degrees/ water flush per MD. ADDITIONAL RECOMMENDATIONS: 1) Calibrated bed scale wt for accurate CBW -> daily wt monitoring Per HD record: dry wt on 07/30=39.5kg (87lbs) 2) Wound care: (W/ GI access) add Nephorivte x 1 + Balta BID 3) Monitor NPO status: without GI access at this time, s/p pulling out NGT 4) Monitor for hypoglycemia while NPO 5) Monitor for continuity of HD (2) Septic arthritis Assessment & Plan: Pt presented on admission with generalized scaly rash . pt noted to be restless and scratching at skin. Bleeding from oral mucosa noted. Joint deformity noted to R shoulder. Surgical incision approximated with 11 sutures. Erythema but no exudate,or elevation in skin temp at site of incision. Historical incision R hip that is tunneled.Small amt seropurulent exudate noted. Periwound is erythematous,but no elevation in skin temp noted. No odor noted. Non-blanching erythema noted to sacrum. Perianal area is erythematous and excoriated. L heel is boggy with non-blanching erythema. R heel is soft with non-blanching erythema. No evidence of skin breakdown to all other bony prominences. Tx.plan: Cover R shoulder with Drsg and change daily and prn. Cleanse R hip wound with Saline. Apply Therahoney.Apply Cavilon Skin Barrier periwound. Cover with Optifoam drsg. Change every 3 days and prn. Apply Moisture Barrier Paste to perianal area and buttocks. Cover Sacrum with Optifoam drsg. Change every 3 days and prn. Apply Cavilon Skin Barrier to both heels. Cover each heel with Optifoam drsg. Change every 7 days and prn. APM/ELVIA Mattress overlay. Reposition at least every 2hours or as tolerated. Off-load heels with pillow. HD cath necessary HD as renal likely will need intubation (3) Wound, open, hip or thigh with complication Assessment & Plan: slow healing will need nutritional optimization difficult ng tube peg when stable sutures removed from right shoulder comfortable wean vent may need trach (4) Abscess of right hip (5) possible septic arthritis (6) Renal failure (ARF), acute on chronic Assessment & Plan: cont HD will need tunneled cath placement okay to use fem line for now but will need change soon. line monitored and clean dressings going well (7) Pneumonia Assessment & Plan: intubated on vent support not tolerating weaning may need trach hemothorax likely after thoracentesis Chest CT noted Left chest tube placed With plan for trach chest tube can be considered but overall prognosis is very poor s/p trach left chest tub eout cxr noted and okay downgrade left pleural effusion dressings saturated will need to monitor. may need another chest tube as may not heal well on left side Additional Comments US abd ordered labs ordered Camilo James Sep 21, 2019 13:35
[2019-09-21 16:00] VITALS: BP 159/78
[2019-09-21 20:00] VITALS: BP 147/96
[2019-09-21] MEDS: Dyna-Hex 2% Top Sol 2oz TOPIC SCH (20:11)
--- NOTE | 2019-09-21 20:11 | General Progress Note ---
Assessment/Plan Problem List: (1) Failure to thrive (0-17) ICD Codes: R62.51 - Failure to thrive (0-17) SNOMED: 345484049 (2) Hypertensive kidney disease ICD Codes: I12.9 - Hypertensive chronic kidney disease with stage 1 through stage 4 chronic kidney disease, or unspecified chronic kidney disease SNOMED: 04760388 (3) Pneumonia ICD Codes: J18.9 - Pneumonia, unspecified organism SNOMED: 503737690 Qualifiers: Qualified Codes: J18.9 - Pneumonia, unspecified organism (4) ESRD (end stage renal disease) ICD Codes: N18.6 - End stage renal disease SNOMED: 20499394 (5) Septic arthritis ICD Codes: M00.9 - Pyogenic arthritis, unspecified SNOMED: 229734739 (6) Thrombocytopenia ICD Codes: D69.6 - Thrombocytopenia, unspecified SNOMED: 673148499 (7) Hypotension ICD Codes: I95.9 - Hypotension, unspecified SNOMED: 11469316 Qualifiers: Qualified Codes: I95.3 - Hypotension of hemodialysis (8) Malnutrition ICD Codes: E46 - Unspecified protein-calorie malnutrition SNOMED: 44200410 Status: stable, not improved, unchanged, deteriorating Assessment/Plan: Continue vent support. Wean as able. Suctioning and pulmonary toilet. Continue G-tube feedings. Monitor residuals Continue current blood pressure regimen with close monitoring of blood pressure. Hemodialysis with ultrafiltration per nephrology. Turn every 2 hours and good skin care. monitor labs Discharge planning in progress Subjective ROS Limited/Unobtainable: No Constitutional: Reports: malaise, weakness HEENT: Reports: no symptoms Cardiovascular: Reports: no symptoms Respiratory: Reports: cough Gastrointestinal/Abdominal: Reports: no symptoms Genitourinary: Reports: no symptoms Neurologic/Psychiatric: Reports: no symptoms Endocrine: Reports: no symptoms Hematologic/Lymphatic: Reports: no symptoms Allergies: Coded Allergies: VANCOMYCIN (Unverified Allergy, Unknown, 08/02/19) All Systems: reviewed and negative except above Subjective There were no overnight events. Patient remained stable on the ventilator. She occasionally opens her eyes. Tolerating feedings. LFTS up Objective Last 24 Hour Vital Signs Date Time Temp Pulse Resp B/P (MAP) Pulse Ox O2 Delivery O2 Flow Rate FiO2 09/21/19 20:02 74 18 100 Mechanical Ventilator 30 09/21/19 19:47 71 18 Mechanical Ventilator 30 30 09/21/19 17:37 159/78 09/21/19 17:37 77 159/78 09/21/19 17:09 82 18 30 09/21/19 16:00 30 09/21/19 16:00 Mechanical Ventilator Mechanical Ventilator Mechanical Ventilator Mechanical Ventilator 09/21/19 16:00 97.0 77 18 159/78 (105) 100 09/21/19 16:00 68 09/21/19 14:47 66 18 100 Mechanical Ventilator 30 65 19 30 09/21/19 13:22 83 18 30 09/21/19 12:00 67 09/21/19 12:00 126/74 09/21/19 12:00 Mechanical Ventilator Mechanical Ventilator Mechanical Ventilator Mechanical Ventilator 09/21/19 12:00 97.2 60 18 126/74 (91) 100 09/21/19 12:00 30 09/21/19 11:29 72 18 100 Mechanical Ventilator 30 69 18 30 09/21/19 10:06 100 09/21/19 10:02 79 22 30 09/21/19 09:10 70 9 30 30 09/21/19 08:54 65 148/79 09/21/19 08:00 97.0 65 18 148/79 (102) 100 09/21/19 08:00 30 09/21/19 08:00 Mechanical Ventilator Mechanical Ventilator Mechanical Ventilator Mechanical Ventilator 09/21/19 08:00 67 09/21/19 07:49 66 18 100 Mechanical Ventilator 30 67 19 30 09/21/19 06:27 151/78 09/21/19 05:39 69 18 30 09/21/19 04:00 Mechanical Ventilator Mechanical Ventilator Mechanical Ventilator Mechanical Ventilator 09/21/19 04:00 30 09/21/19 04:00 97.4 69 18 151/78 (102) 100 09/21/19 04:00 64 09/21/19 03:01 69 19 100 Mechanical Ventilator 30 72 20 30 09/21/19 01:24 70 18 30 09/21/19 00:00 97.3 74 18 148/81 (103) 99 09/21/19 00:00 73 09/21/19 00:00 Mechanical Ventilator Mechanical Ventilator Mechanical Ventilator Mechanical Ventilator 09/21/19 00:00 30 09/20/19 23:32 73 18 100 Mechanical Ventilator 40 09/20/19 23:32 73 18 100 Mechanical Ventilator 30 76 20 30 09/20/19 22:10 147/81 09/20/19 21:19 84 19 30 Intake and Output 09/20/19 09/21/19 19:00 07:00 Intake Total 520 ml 480 ml Output Total 250 ml 200 ml Balance 270 ml 280 ml Intake Free Water 100 ml 100 ml Tube Feeding 420 ml 350 ml Other 30 ml Output Urine Total 250 ml 200 ml # Bowel Movements 2 1 Laboratory Tests 09/21/19 06:06: White Blood Count 11.0H, Red Blood Count 3.75L, Hemoglobin 11.0L, Hematocrit 33.2L, Mean Corpuscular Volume 89, Mean Corpuscular Hemoglobin 29.2, Mean Corpuscular Hemoglobin Concent 33.0, Red Cell Distribution Width 15.0H, Platelet Count 525H, Mean Platelet Volume 4.9L, Neutrophils (%) (Auto) 77.1H, Lymphocytes (%) (Auto) 17.6L, Monocytes (%) (Auto) 2.9, Eosinophils (%) (Auto) 1.9, Basophils (%) (Auto) 0.5, Sodium Level 134L, Potassium Level 3.9, Chloride Level 96L, Carbon Dioxide Level 28, Anion Gap 10, Blood Urea Nitrogen 103H, Creatinine 3.6H, Estimat Glomerular Filtration Rate 12.2, Glucose Level 112H, Calcium Level 9.2, Phosphorus Level 4.9, Total Bilirubin 0.5, Aspartate Amino Transf (AST/SGOT) 853H, Alanine Aminotransferase (ALT/SGPT) 361H, Alkaline Phosphatase 340H, C-Reactive Protein, Quantitative 17.0H, Pro-B-Type Natriuretic Peptide > 44948A, Total Protein 7.4, Albumin 2.4L, Globulin 5.0, Albumin/Globulin Ratio 0.5L Height (Feet): 5 Height (Inches): 4.00 Weight (Pounds): 112 Objective General Appearance: WD/WN, awake. looks around. no distress. thin and frail Neck: supple +trach Cardiovascular: normal rate Respiratory/Chest: rhonchi - bilaterally Abdomen: normal bowel sounds, non tender, soft, no organomegaly Edema: no edema noted Arm (L), no edema noted Arm (R), no edema noted Leg (L), no edema noted Leg (R), no edema noted Pedal (L), no edema noted Pedal (R), no edema noted Generalized Neurologic: disoriented, aphasia Skin: +excoriations Nate Beltran MD Sep 21, 2019 20:11
--- NOTE | 2019-09-21 21:35 | General Progress Note ---
Assessment/Plan Status: stable, not improved, unchanged, deteriorating Assessment/Plan: Assessment - Severe ulcerative esophagitis - mild elevation in LFT, Hepatitis B/C negative --> now sudden rise - ? structural - ? autoimmune - abnormal liver on CT - ? chronic disease / fibrosis - Resp failure - trach - s/p recent Chest tube and removal - Renal failure - aspiration risk --> s/p PEG - anemia - bradycardia - Poor prognosis Recommendations - check abd u/s - check autoimmune marker - check Iron panel - check AFP - GT care - water flushes - elevate HOB - monitor H&H - vent - placement Subjective Allergies: Coded Allergies: VANCOMYCIN (Unverified Allergy, Unknown, 08/02/19) Subjective above noted NAD tolerating TF LFT much higher today Objective Last 24 Hour Vital Signs Date Time Temp Pulse Resp B/P (MAP) Pulse Ox O2 Delivery O2 Flow Rate FiO2 09/21/19 20:02 74 18 100 Mechanical Ventilator 30 09/21/19 20:00 30 09/21/19 20:00 Mechanical Ventilator Mechanical Ventilator Mechanical Ventilator Mechanical Ventilator 09/21/19 20:00 97.0 69 18 147/96 (113) 100 09/21/19 19:47 71 18 Mechanical Ventilator 30 30 09/21/19 17:37 159/78 09/21/19 17:37 77 159/78 09/21/19 17:09 82 18 30 09/21/19 16:00 30 09/21/19 16:00 Mechanical Ventilator Mechanical Ventilator Mechanical Ventilator Mechanical Ventilator 09/21/19 16:00 97.0 77 18 159/78 (105) 100 09/21/19 16:00 68 09/21/19 14:47 66 18 100 Mechanical Ventilator 30 65 19 30 09/21/19 13:22 83 18 30 09/21/19 12:00 67 09/21/19 12:00 126/74 09/21/19 12:00 Mechanical Ventilator Mechanical Ventilator Mechanical Ventilator Mechanical Ventilator 09/21/19 12:00 97.2 60 18 126/74 (91) 100 09/21/19 12:00 30 09/21/19 11:29 72 18 100 Mechanical Ventilator 30 69 18 30 09/21/19 10:06 100 09/21/19 10:02 79 22 30 09/21/19 09:10 70 9 30 30 09/21/19 08:54 65 148/79 09/21/19 08:00 97.0 65 18 148/79 (102) 100 09/21/19 08:00 30 09/21/19 08:00 Mechanical Ventilator Mechanical Ventilator Mechanical Ventilator Mechanical Ventilator 09/21/19 08:00 67 09/21/19 07:49 66 18 100 Mechanical Ventilator 30 67 19 30 09/21/19 06:27 151/78 09/21/19 05:39 69 18 30 09/21/19 04:00 Mechanical Ventilator Mechanical Ventilator Mechanical Ventilator Mechanical Ventilator 09/21/19 04:00 30 09/21/19 04:00 97.4 69 18 151/78 (102) 100 09/21/19 04:00 64 09/21/19 03:01 69 19 100 Mechanical Ventilator 30 72 20 30 09/21/19 01:24 70 18 30 09/21/19 00:00 97.3 74 18 148/81 (103) 99 09/21/19 00:00 73 09/21/19 00:00 Mechanical Ventilator Mechanical Ventilator Mechanical Ventilator Mechanical Ventilator 09/21/19 00:00 30 09/20/19 23:32 73 18 100 Mechanical Ventilator 40 09/20/19 23:32 73 18 100 Mechanical Ventilator 30 76 20 30 09/20/19 22:10 147/81 Intake and Output 09/20/19 09/21/19 19:00 07:00 Intake Total 520 ml 480 ml Output Total 250 ml 200 ml Balance 270 ml 280 ml Intake Free Water 100 ml 100 ml Tube Feeding 420 ml 350 ml Other 30 ml Output Urine Total 250 ml 200 ml # Bowel Movements 2 1 Laboratory Tests 09/21/19 06:06: White Blood Count 11.0H, Red Blood Count 3.75L, Hemoglobin 11.0L, Hematocrit 33.2L, Mean Corpuscular Volume 89, Mean Corpuscular Hemoglobin 29.2, Mean Corpuscular Hemoglobin Concent 33.0, Red Cell Distribution Width 15.0H, Platelet Count 525H, Mean Platelet Volume 4.9L, Neutrophils (%) (Auto) 77.1H, Lymphocytes (%) (Auto) 17.6L, Monocytes (%) (Auto) 2.9, Eosinophils (%) (Auto) 1.9, Basophils (%) (Auto) 0.5, Sodium Level 134L, Potassium Level 3.9, Chloride Level 96L, Carbon Dioxide Level 28, Anion Gap 10, Blood Urea Nitrogen 103H, Creatinine 3.6H, Estimat Glomerular Filtration Rate 12.2, Glucose Level 112H, Calcium Level 9.2, Phosphorus Level 4.9, Total Bilirubin 0.5, Aspartate Amino Transf (AST/SGOT) 853H, Alanine Aminotransferase (ALT/SGPT) 361H, Alkaline Phosphatase 340H, C-Reactive Protein, Quantitative 17.0H, Pro-B-Type Natriuretic Peptide > 35226G, Total Protein 7.4, Albumin 2.4L, Globulin 5.0, Albumin/Globulin Ratio 0.5L Height (Feet): 5 Height (Inches): 4.00 Weight (Pounds): 112 Objective Debilitated frail woman NCAT (+) on vent supple, (+) trach scattered ronchi RR abd soft ND NT, (+) GT no edema Cristy Elizondo MD Sep 21, 2019 21:35
[2019-09-22] VITALS: BP 157/83
[2019-09-22] MEDS: HydrALAZINE 25mg tab NG SCH ×4 (00:02→18:30)
[2019-09-22 04:00] VITALS: BP 149/77
--- NOTE | 2019-09-22 04:15 | Progress Note ---
DATE: 09/21/2019 CARDIOLOGY PROGRESS NOTE SUBJECTIVE: The patient remains on ventilator support. She is interactive with eye contact. Monitored rhythm sinus. OBJECTIVE: VITAL SIGNS: Blood pressure 159/78, heart rate 82, respiratory rate 18. HEENT: Thin trach secretions via ET tube. CARDIAC: Regular rhythm and rate. Normal S1, S2. LUNGS: With coarse breath sounds. ABDOMEN: Soft. GJ tube site intact. EXTREMITIES: There is no edema. LABORATORY DATA: White count 11, hemoglobin 11. Sodium 134, potassium 3.9, bicarb 28, BUN 103, creatinine 3.6. Liver function studies are significantly elevated. Albumin 2.4. IMPRESSION: 1. Respiratory failure. 2. End-stage renal disease. 3. Hypothyroidism. 4. Acute transaminitis. 5. Sinus bradycardia, resolved. 6. Chronic diastolic congestive heart failure. 7. Hypertensive heart disease with rising blood pressure trend. PLAN: 1. Recheck abdominal ultrasound. 2. Medication regimen reviewed for hepatotoxic regimen. 3. Hold diuresis. 4. Continue thyroid replacement. 5. Titrate antihypertensives. Abel Stubbs M.D. DR: NESS JOB#: [id number] CC:
[2019-09-22] MEDS: Levothyroxine 125mcg tab ORAL SCH (06:21)
[2019-09-22 06:52] LABS: HEMOGLOBIN 10.5 G/DL (12.0-16.0); LYMPHOCYTES % (AUTO) 21.5 % (20.0-45.0); MEAN CORPUSCULAR VOLUME 89 FL (80-99); MONOCYTES % (AUTO) 3.6 % (1.0-10.0); NEUTROPHILS % (AUTO) 71.9 % (45.0-75.0); PLATELET COUNT 525 K/UL (150-450); RED CELL DISTRIBUTION WIDTH 15.2 % (11.6-14.8); WHITE BLOOD COUNT 7.8 K/UL (4.8-10.8)
[2019-09-22 07:40] LABS: CREATINE KINASE 49 U/L (26-308)
--- NOTE | 2019-09-22 07:40 | General Progress Note ---
Assessment/Plan Problem List: (1) Hypothyroid ICD Codes: E03.9 - Hypothyroidism, unspecified SNOMED: 82944742 (2) ESRD (end stage renal disease) on dialysis ICD Codes: N18.6 - End stage renal disease; Z99.2 - Dependence on renal dialysis SNOMED: 772931061 (3) Hypotension ICD Codes: I95.9 - Hypotension, unspecified SNOMED: 90310969 Qualifiers: Qualified Codes: I95.3 - Hypotension of hemodialysis (4) Pneumonia ICD Codes: J18.9 - Pneumonia, unspecified organism SNOMED: 450878724 Qualifiers: Qualified Codes: J18.9 - Pneumonia, unspecified organism (5) Diabetes mellitus ICD Codes: E11.9 - Type 2 diabetes mellitus without complications SNOMED: 07248871 Status: stable, not improved, unchanged, deteriorating Assessment/Plan: continue Levothyroxine tablet dose to 125 mcg daily repeat TSH, free 4 next week continue glucose monitoring without insulin coverage hypoglycemia protocol in order Subjective ROS Limited/Unobtainable: Yes Allergies: Coded Allergies: VANCOMYCIN (Unverified Allergy, Unknown, 08/02/19) Subjective events noted interval notes reviewed glucose values are stable on trach vent - waiting for placement Item Value Date Time Bedside Blood Glucose 105 mg/dl 09/22/19 0600 Bedside Blood Glucose 128 mg/dl H 09/22/19 0000 Bedside Blood Glucose 129 mg/dl H 09/21/19 1800 Bedside Blood Glucose 86 mg/dl 09/21/19 1200 Objective Last 24 Hour Vital Signs Date Time Temp Pulse Resp B/P (MAP) Pulse Ox O2 Delivery O2 Flow Rate FiO2 09/22/19 06:21 157/67 09/22/19 04:47 62 18 30 09/22/19 04:00 30 09/22/19 04:00 97.5 69 19 149/77 (101) 99 09/22/19 04:00 Mechanical Ventilator Mechanical Ventilator Mechanical Ventilator Mechanical Ventilator 09/22/19 03:36 68 09/22/19 03:16 73 18 30 09/22/19 00:55 72 18 30 09/22/19 00:02 157/83 09/22/19 00:00 98.0 62 18 157/83 (107) 100 09/22/19 00:00 Mechanical Ventilator Mechanical Ventilator Mechanical Ventilator Mechanical Ventilator 09/21/19 23:48 72 17 100 Mechanical Ventilator 30 09/21/19 23:33 71 18 Mechanical Ventilator 30 30 09/21/19 23:25 75 09/21/19 21:25 77 19 30 09/21/19 20:02 74 18 100 Mechanical Ventilator 30 09/21/19 20:00 30 09/21/19 20:00 Mechanical Ventilator Mechanical Ventilator Mechanical Ventilator Mechanical Ventilator 09/21/19 20:00 97.0 69 18 147/96 (113) 100 09/21/19 19:47 71 18 Mechanical Ventilator 30 30 09/21/19 19:03 70 09/21/19 17:37 159/78 09/21/19 17:37 77 159/78 09/21/19 17:09 82 18 30 09/21/19 16:00 30 09/21/19 16:00 Mechanical Ventilator Mechanical Ventilator Mechanical Ventilator Mechanical Ventilator 09/21/19 16:00 97.0 77 18 159/78 (105) 100 09/21/19 16:00 68 09/21/19 14:47 66 18 100 Mechanical Ventilator 30 65 19 30 09/21/19 13:22 83 18 30 09/21/19 12:00 67 09/21/19 12:00 126/74 09/21/19 12:00 Mechanical Ventilator Mechanical Ventilator Mechanical Ventilator Mechanical Ventilator 09/21/19 12:00 97.2 60 18 126/74 (91) 100 09/21/19 12:00 30 09/21/19 11:29 72 18 100 Mechanical Ventilator 30 69 18 30 09/21/19 10:06 100 09/21/19 10:02 79 22 30 09/21/19 09:10 70 9 30 30 09/21/19 08:54 65 148/79 09/21/19 08:00 97.0 65 18 148/79 (102) 100 09/21/19 08:00 30 09/21/19 08:00 Mechanical Ventilator Mechanical Ventilator Mechanical Ventilator Mechanical Ventilator 09/21/19 08:00 67 09/21/19 07:49 66 18 100 Mechanical Ventilator 30 67 19 30 Intake and Output 09/21/19 09/22/19 19:00 07:00 Intake Total 550 ml 175 ml Output Total 1300 ml 400 ml Balance -750 ml -225 ml Intake Free Water 130 ml Tube Feeding 420 ml 175 ml Output Urine Total 300 ml 400 ml Hemodialysis UF 1000 ml # Bowel Movements 5 2 Laboratory Tests 09/22/19 06:15: White Blood Count 7.8, Red Blood Count 3.60L, Hemoglobin 10.5L, Hematocrit 32.0L , Mean Corpuscular Volume 89, Mean Corpuscular Hemoglobin 29.2, Mean Corpuscular Hemoglobin Concent 32.9, Red Cell Distribution Width 15.2H, Platelet Count 525H, Mean Platelet Volume 4.9L, Neutrophils (%) (Auto) 71.9, Lymphocytes (%) (Auto) 21.5, Monocytes (%) (Auto) 3.6, Eosinophils (%) (Auto) 2.0, Basophils (%) (Auto) 1.0, Erythrocyte Sedimentation Rate [Pending], Prothrombin Time 10.9, Prothromb Time International Ratio 1.0, Activated Partial Thromboplast Time 35H, Sodium Level [Pending], Potassium Level [Pending] , Chloride Level [Pending], Carbon Dioxide Level [Pending], Blood Urea Nitrogen [Pending], Creatinine [Pending], Estimat Glomerular Filtration Rate [Pending], Glucose Level [Pending], Calcium Level [Pending], Iron Level [Pending], Unsaturated Iron Binding [Pending], Ferritin [Pending], Total Bilirubin [Pending ], Aspartate Amino Transf (AST/SGOT) [Pending], Alanine Aminotransferase (ALT/ SGPT) [Pending], Alkaline Phosphatase [Pending], Total Creatine Kinase [Pending] , C-Reactive Protein, Quantitative [Pending], Total Protein [Pending], Albumin [ Pending], Globulin [Pending], Amylase Level [Pending], Lipase [Pending], Alpha Fetoprotein [Pending], Anti-Nuclear Antibody Screen [Pending], F-Actin IgG Antibody [Pending] Height (Feet): 5 Height (Inches): 4.00 Weight (Pounds): 112 General Appearance: no apparent distress Neck: normal alignment Cardiovascular: normal rate Respiratory/Chest: lungs clear Abdomen: normal bowel sounds Objective Current Medications Medications (Trade) Dose Ordered Sig/Javier Route PRN Reason Start Time Stop Time Status Last Admin Dose Admin Acetaminophen (Tylenol) 650 mg Q4H PRN GT Mild Pain/Temp > 100.5 09/03/19 07:00 10/03/19 06:59 09/20/19 01:54 Acetylcysteine (Mucomyst) 100 mg Q4HRT HHN 08/31/19 19:00 11/29/19 18:59 09/21/19 23:35 Chlorhexidine Gluconate (Nae-Hex 2%) 1 applic DAILY@2000 TOPIC 09/17/19 20:00 12/16/19 19:59 09/21/19 20:11 Dextrose (Dextrose 50%) 25 ml Q30M PRN IV Hypoglycemia 09/02/19 06:15 12/01/19 06:14 09/04/19 12:11 Dextrose (Dextrose 50%) 50 ml Q30M PRN IV Hypoglycemia 09/02/19 06:15 12/01/19 06:14 Hydralazine HCl (Apresoline) 50 mg Q6HR NG 09/21/19 06:00 12/20/19 05:59 09/22/19 06:21 Levothyroxine Sodium (Synthroid) 125 mcg DAILY@0630 ORAL 09/22/19 06:30 10/22/19 06:29 09/22/19 06:21 Antonio Jacome MD Sep 22, 2019 07:40
[2019-09-22 07:45] LABS: ALANINE AMINOTRANSFERASE 323 U/L (12-78); ALBUMIN 2.6 G/DL (3.4-5.0); ALBUMIN/GLOBULIN RATIO 0.5 (1.0-2.7); ALKALINE PHOSPHATASE 359 U/L (46-116); AMYLASE 49 U/L (25-115); ANION GAP 10 mmol/L (5-15); ASPARTATE AMINO TRANSFERASE 558 U/L (15-37); BILIRUBIN,TOTAL 0.5 MG/DL (0.2-1.0); BLOOD UREA NITROGEN 74 mg/dL (7-18); CALCIUM 9.1 MG/DL (8.5-10.1); CARBON DIOXIDE 29 MMOL/L (21-32); CHLORIDE 98 MMOL/L (98-107); CREATININE 2.8 MG/DL (0.55-1.30); FERRITIN 744 NG/ML (8-388); POTASSIUM 3.9 MMOL/L (3.5-5.1); SODIUM 137 MMOL/L (136-145)
[2019-09-22 08:00] VITALS: BP 155/92
[2019-09-22 08:04] LABS: % IRON SATURATION 71 % (15-50); IRON 46 ug/dL (50-175); TOTAL IRON BINDING CAPACITY 65 ug/dL (250-450)
--- NOTE | 2019-09-22 09:21 | Hematology/Onc Progress Note ---
Assessment/Plan Assessment/Plan # Thrombocytopenia ow THROMBOCYTOSIS - potential causes multifactorial, evaluate liver and viral etiologies to begin, in this case due to sepsis with septic shock also with cirrhosis and liver disease --> Hep panel and HIV ordered --> neg --> US abd to evaluate for cirrhosis and hsm ordered --> reviewed --> Peripheral smear ordered to evaluate for blasts /schistocytes --> none noted --> abx and other meds have been reviewed --> ok for ppx if plt >50k w/ either heparin or lovenox --> Transfuse if Plt < 20k and fever, or if Plt < 10k without fever --> okay for permacath change once plt better--> for 08/14 --> plt trend: 43-->83-->237k-->292-->341-->315-->388 -->444-->530-->252k-->344- >529->525k # Anemia of chronic disease due to underlying chronic medical issues, multifactorial v Gi bleed --> Anemia workup has been ordered, rule out gi bleed --> No evidence of hemolysis is noted, peripheral smear has been reviewed. --> Hgb goal >7. Transfuse prn. --> Epogen has been started --> HOLD OFF IRON ferritin is >1000 --> Medications have been reviewed --> low threshold for gi evaluation in case has occult + --> hgb 9-->6.7-->9.2 -->10.5-->10.6 -->10.7-->10-->10.5-->9.8-->10.4-->9.5--> 3.6-->9.6-->9.7-->10-->10.3-->11->9.9 --> blood tx: 08/11, 08/31 --> CT Chest r/o hemothorax --> does show confirmation of a large left hemothorax. Complete atelectasis of the left lower lobe and partial left upper lobe atelectasis demonstrated. Mild rightward shift of the heart and mediastinum. # Sepsis with shock. --> abx as per id, recs noted--> off abx --> pressors as needed # Healthcare-associated pneumonia. --> recs reviewed --> abx: jung/micafungin-->jung-->off --> 08/24 chest: moderate left pleural effusion # Severe protein-calorie malnutrition. --> nutritional support # End-stage renal disease --> had as renal hd --> with permacath # History of hypertension. --> per cards, now with Bradycardia. # Resp failure s/p vent/trach # HypoThyroid # Ngt feedings # Dvt ppx scd's The timing of this note does not necessarily reflect the time of the patient was seen. Greatly appreciate consultation. Subjective Constitutional: Denies: no symptoms, chills, fever, malaise, weakness, other HEENT: Denies: no symptoms, eye pain, blurred vision, tearing, double vision, ear pain, ear discharge, nose pain, nose congestion, throat pain, throat swelling, mouth pain, mouth swelling, other Cardiovascular: Denies: no symptoms, chest pain, edema, irregular heart rate, lightheadedness, palpitations, syncope, other Respiratory: Denies: no symptoms, cough, shortness of breath, SOB with excertion, SOB at rest, sputum, wheezing, other Gastrointestinal/Abdominal: Denies: no symptoms, abdomen distended, abdominal pain, black stools, tarry stools, blood in stool, constipated, diarrhea, difficulty swallowing, nausea, poor appetite, poor fluid intake, rectal bleeding , vomiting, other Endocrine: Denies: no symptoms, excessive sweating, flushing, intolerance to cold, intolerance to heat, increased hunger, increased thirst, increased urine, unexplained weight gain, unexplained weight loss, other Hematologic/Lymphatic: Denies: no symptoms, anemia, easy bleeding, easy bruising, adenopathy, other Allergies: Coded Allergies: VANCOMYCIN (Unverified Allergy, Unknown, 08/02/19) Subjective 08/11: no bleeding or chills, labs reviewed, no major bleeding, plt less than 50k 08/12: icu, s/p blood, hgb improved to 9.2, 08/14: icu, pending consent for thora and permacath, labs reviewed 08/15: new permacath placed, no bleeding, for hd, plt much improved, started lovenox sq 08/16: ett to be adjusted, bp on high end, micafungin started, possible bronch 08/17: weaning as per pulm, no events otherwise, labs noted 08/18: no events no bleeding, remains confused on vent, for hd 08/20: icu, failed to wean, labs reviewed, jung 08/21: resting in bed, no overnight events, labs reviewed 08/22: awake, confused, restraints, no overnight events 08/23: no events, no bleeding, on ppi bid 08/24: icu, failed to wean, labs reviewed 08/25: no overnight events, us chest, restraints, afebrile 08/26 difficult in weaning, nad, seen by surg, pulm labs noted 08/27 awake on restraints, thoracentesis for am, labs reviewed 08/29 no bleeding, no night sweats, no major changes, on ppi bid 08/30 no major events, remains on vent, no bleeding, dw pcp 08/31 hgb dropped to 3.6, has been transfused with prbc, in icu, david Rn, ct chest pend 09/01 no major events, no bleeding, labs noted, hgb remains low, hgb 9.6 09/03 lethargic, left chest tube dry/intact, off abx, vent 09/04 remains on a vent, synthroid, labs reviewed 09/05 awake and alert, no acute events, hgb 9.8, no new orders 09/06 no bleeding or chills, labs noted, no major events overnight, dvaid rn 09/07 no events, no night sweats, no bleeding, no fc, remains agitated in the am 09/08 remains in the icu, trach was done, on vent, abx off, on epo 09/10 transferred to sdu, restraints, vent, labs reviewed 09/11 tube feeds have been ongoing, no f/c, labs reviewed 09/12 no events, no bleeding, no night sweats, hgb 10 09/13 tsh is improved, remains confused, hgb is 11, no bleeding 09/14 no events, no bleeding, labs noted, vitals stable / confused, no acute events, restraints, dc planning 09/17 no new changes, no recent labs, placement pending 09/18 no events, no bleeding, no night sweats, fevers 09/19 nonverbal, vent, elevated bp, off abx 09/20 labs reviewed, david rn, no bleeding, meds reviewed 09/21 is a+o x 1, nonverbal, no bleeding, labs reviewed, no night sweats Objective Objective Current Medications Medications (Trade) Dose Ordered Sig/Javier Route PRN Reason Start Time Stop Time Status Last Admin Dose Admin Acetaminophen (Tylenol) 650 mg Q4H PRN GT Mild Pain/Temp > 100.5 09/03/19 07:00 10/03/19 06:59 09/20/19 01:54 Acetylcysteine (Mucomyst) 100 mg Q4HRT HHN 08/31/19 19:00 11/29/19 18:59 09/21/19 23:35 Chlorhexidine Gluconate (Nae-Hex 2%) 1 applic DAILY@2000 TOPIC 09/17/19 20:00 12/16/19 19:59 09/21/19 20:11 Dextrose (Dextrose 50%) 25 ml Q30M PRN IV Hypoglycemia 09/02/19 06:15 12/01/19 06:14 09/04/19 12:11 Dextrose (Dextrose 50%) 50 ml Q30M PRN IV Hypoglycemia 09/02/19 06:15 12/01/19 06:14 Hydralazine HCl (Apresoline) 50 mg Q6HR NG 09/21/19 06:00 12/20/19 05:59 09/22/19 06:21 Levothyroxine Sodium (Synthroid) 125 mcg DAILY@0630 ORAL 09/22/19 06:30 10/22/19 06:29 09/22/19 06:21 Last 24 Hour Vital Signs Date Time Temp Pulse Resp B/P (MAP) Pulse Ox O2 Delivery O2 Flow Rate FiO2 09/22/19 08:00 Mechanical Ventilator Mechanical Ventilator Mechanical Ventilator Mechanical Ventilator 09/22/19 08:00 30 09/22/19 08:00 97.0 71 18 155/92 (113) 100 09/22/19 07:40 69 19 30 09/22/19 06:21 157/67 09/22/19 04:47 62 18 30 09/22/19 04:00 30 09/22/19 04:00 97.5 69 19 149/77 (101) 99 09/22/19 04:00 Mechanical Ventilator Mechanical Ventilator Mechanical Ventilator Mechanical Ventilator 09/22/19 03:36 68 09/22/19 03:16 73 18 30 09/22/19 00:55 72 18 30 09/22/19 00:02 157/83 09/22/19 00:00 98.0 62 18 157/83 (107) 100 09/22/19 00:00 Mechanical Ventilator Mechanical Ventilator Mechanical Ventilator Mechanical Ventilator 09/21/19 23:48 72 17 100 Mechanical Ventilator 30 09/21/19 23:33 71 18 Mechanical Ventilator 30 30 09/21/19 23:25 75 09/21/19 21:25 77 19 30 09/21/19 20:02 74 18 100 Mechanical Ventilator 30 09/21/19 20:00 30 09/21/19 20:00 Mechanical Ventilator Mechanical Ventilator Mechanical Ventilator Mechanical Ventilator 09/21/19 20:00 97.0 69 18 147/96 (113) 100 09/21/19 19:47 71 18 Mechanical Ventilator 30 30 09/21/19 19:03 70 09/21/19 17:37 159/78 09/21/19 17:37 77 159/78 09/21/19 17:09 82 18 30 09/21/19 16:00 30 09/21/19 16:00 Mechanical Ventilator Mechanical Ventilator Mechanical Ventilator Mechanical Ventilator 09/21/19 16:00 97.0 77 18 159/78 (105) 100 09/21/19 16:00 68 09/21/19 14:47 66 18 100 Mechanical Ventilator 30 65 19 30 09/21/19 13:22 83 18 30 09/21/19 12:00 67 09/21/19 12:00 126/74 09/21/19 12:00 Mechanical Ventilator Mechanical Ventilator Mechanical Ventilator Mechanical Ventilator 09/21/19 12:00 97.2 60 18 126/74 (91) 100 09/21/19 12:00 30 09/21/19 11:29 72 18 100 Mechanical Ventilator 30 69 18 30 09/21/19 10:06 100 09/21/19 10:02 79 22 30 09/21/19 09:10 70 9 30 30 09/21/19 08:54 65 148/79 09/21/19 08:00 97.0 65 18 148/79 (102) 100 09/21/19 08:00 30 09/21/19 08:00 Mechanical Ventilator Mechanical Ventilator Mechanical Ventilator Mechanical Ventilator 09/21/19 08:00 67 09/21/19 07:49 66 18 100 Mechanical Ventilator 30 67 19 30 09/21/19 06:27 151/78 09/21/19 05:39 69 18 30 09/21/19 04:00 Mechanical Ventilator Mechanical Ventilator Mechanical Ventilator Mechanical Ventilator 09/21/19 04:00 30 09/21/19 04:00 97.4 69 18 151/78 (102) 100 09/21/19 04:00 64 09/21/19 03:01 69 19 100 Mechanical Ventilator 30 72 20 30 09/21/19 01:24 70 18 30 09/21/19 00:00 97.3 74 18 148/81 (103) 99 09/21/19 00:00 73 09/21/19 00:00 Mechanical Ventilator Mechanical Ventilator Mechanical Ventilator Mechanical Ventilator 09/21/19 00:00 30 09/20/19 23:32 73 18 100 Mechanical Ventilator 40 09/20/19 23:32 73 18 100 Mechanical Ventilator 30 76 20 30 09/20/19 22:10 147/81 09/20/19 21:19 84 19 30 09/20/19 20:00 77 09/20/19 20:00 30 09/20/19 20:00 97.0 75 18 147/81 (103) 100 09/20/19 20:00 Mechanical Ventilator Mechanical Ventilator Mechanical Ventilator Mechanical Ventilator 09/20/19 19:55 83 21 100 Mechanical Ventilator 30 85 20 30 09/20/19 18:05 72 155/75 09/20/19 16:30 72 18 30 09/20/19 16:00 97.1 76 20 155/75 (101) 100 09/20/19 16:00 78 09/20/19 16:00 Mechanical Ventilator Mechanical Ventilator Mechanical Ventilator Mechanical Ventilator 09/20/19 16:00 30 09/20/19 13:49 160/80 09/20/19 12:30 87 19 30 09/20/19 12:00 30 09/20/19 12:00 97.0 88 18 160/80 (106) 97 09/20/19 12:00 82 09/20/19 12:00 Mechanical Ventilator Mechanical Ventilator Mechanical Ventilator Mechanical Ventilator 09/20/19 11:41 78 18 100 Mechanical Ventilator 30 80 19 30 09/20/19 09:34 73 151/73 Intake and Output 09/21/19 09/22/19 19:00 07:00 Intake Total 550 ml 175 ml Output Total 1300 ml 400 ml Balance -750 ml -225 ml Intake Free Water 130 ml Tube Feeding 420 ml 175 ml Output Urine Total 300 ml 400 ml Hemodialysis UF 1000 ml # Bowel Movements 5 2 Labs Test 09/20/19 11:00 09/21/19 06:06 09/22/19 06:15 Thyroid Stimulating Hormone (TSH) 7.468 uiU/mL (0.358-3.740) Free Thyroxine 1.54 NG/DL (0.76-1.46) White Blood Count 11.0 K/UL (4.8-10.8) 7.8 K/UL (4.8-10.8) Red Blood Count 3.75 M/UL (4.20-5.40) 3.60 M/UL (4.20-5.40) Hemoglobin 11.0 G/DL (12.0-16.0) 10.5 G/DL (12.0-16.0) Hematocrit 33.2 % (37.0-47.0) 32.0 % (37.0-47.0) Mean Corpuscular Volume 89 FL (80-99) 89 FL (80-99) Mean Corpuscular Hemoglobin 29.2 PG (27.0-31.0) 29.2 PG (27.0-31.0) Mean Corpuscular Hemoglobin Concent 33.0 G/DL (32.0-36.0) 32.9 G/DL (32.0-36.0) Red Cell Distribution Width 15.0 % (11.6-14.8) 15.2 % (11.6-14.8) Platelet Count 525 K/UL (150-450) 525 K/UL (150-450) Mean Platelet Volume 4.9 FL (6.5-10.1) 4.9 FL (6.5-10.1) Neutrophils (%) (Auto) 77.1 % (45.0-75.0) 71.9 % (45.0-75.0) Lymphocytes (%) (Auto) 17.6 % (20.0-45.0) 21.5 % (20.0-45.0) Monocytes (%) (Auto) 2.9 % (1.0-10.0) 3.6 % (1.0-10.0) Eosinophils (%) (Auto) 1.9 % (0.0-3.0) 2.0 % (0.0-3.0) Basophils (%) (Auto) 0.5 % (0.0-2.0) 1.0 % (0.0-2.0) Sodium Level 134 MMOL/L (136-145) 137 MMOL/L (136-145) Potassium Level 3.9 MMOL/L (3.5-5.1) 3.9 MMOL/L (3.5-5.1) Chloride Level 96 MMOL/L (98-107) 98 MMOL/L (98-107) Carbon Dioxide Level 28 MMOL/L (21-32) 29 MMOL/L (21-32) Anion Gap 10 mmol/L (5-15) 10 mmol/L (5-15) Blood Urea Nitrogen 103 mg/dL (7-18) 74 mg/dL (7-18) Creatinine 3.6 MG/DL (0.55-1.30) 2.8 MG/DL (0.55-1.30) Estimat Glomerular Filtration Rate 12.2 mL/min (>60) 16.3 mL/min (>60) Glucose Level 112 MG/DL (74-106) 88 MG/DL (74-106) Calcium Level 9.2 MG/DL (8.5-10.1) 9.1 MG/DL (8.5-10.1) Phosphorus Level 4.9 MG/DL (2.5-4.9) Total Bilirubin 0.5 MG/DL (0.2-1.0) 0.5 MG/DL (0.2-1.0) Aspartate Amino Transf (AST/SGOT) 853 U/L (15-37) 558 U/L (15-37) Alanine Aminotransferase (ALT/SGPT) 361 U/L (12-78) 323 U/L (12-78) Alkaline Phosphatase 340 U/L (46-116) 359 U/L (46-116) C-Reactive Protein, Quantitative 17.0 mg/dL (0.00-0.90) 15.8 mg/dL (0.00-0.90) Pro-B-Type Natriuretic Peptide > 11937 pg/mL (0-125) Total Protein 7.4 G/DL (6.4-8.2) 7.8 G/DL (6.4-8.2) Albumin 2.4 G/DL (3.4-5.0) 2.6 G/DL (3.4-5.0) Globulin 5.0 g/dL 5.2 g/dL Albumin/Globulin Ratio 0.5 (1.0-2.7) 0.5 (1.0-2.7) Erythrocyte Sedimentation Rate 101 MM/HR (0-30) Prothrombin Time 10.9 SEC (9.30-11.50) Prothromb Time International Ratio 1.0 (0.9-1.1) Activated Partial Thromboplast Time 35 SEC (23-33) Iron Level 46 ug/dL (50-175) Total Iron Binding Capacity 65 ug/dL (250-450) Percent Iron Saturation 71 % (15-50) Unsaturated Iron Binding 19 ug/dL (112-346) Ferritin 744 NG/ML (8-388) Total Creatine Kinase 49 U/L (26-308) Amylase Level 49 U/L (25-115) Lipase 330 U/L (73-393) Height (Feet): 5 Height (Inches): 4.00 Weight (Pounds): 112 Objective Physical Exam vitals: reviewed gen: nad pulm: on trach+ / vent, decreased breath sounds left, chest tube+ cv: rrr, no gmr abd: sfot, nt, nd ++ gt ext: no cce Gio Rob MD Sep 22, 2019 09:21
--- NOTE | 2019-09-22 10:38 | General Progress Note ---
Assessment/Plan Problem List: (1) Failure to thrive (0-17) ICD Codes: R62.51 - Failure to thrive (0-17) SNOMED: 239224891 (2) Hypertensive kidney disease ICD Codes: I12.9 - Hypertensive chronic kidney disease with stage 1 through stage 4 chronic kidney disease, or unspecified chronic kidney disease SNOMED: 98925788 (3) Pneumonia ICD Codes: J18.9 - Pneumonia, unspecified organism SNOMED: 021008305 Qualifiers: Qualified Codes: J18.9 - Pneumonia, unspecified organism (4) ESRD (end stage renal disease) ICD Codes: N18.6 - End stage renal disease SNOMED: 26167463 (5) Septic arthritis ICD Codes: M00.9 - Pyogenic arthritis, unspecified SNOMED: 256411977 (6) Thrombocytopenia ICD Codes: D69.6 - Thrombocytopenia, unspecified SNOMED: 655844933 (7) Hypotension ICD Codes: I95.9 - Hypotension, unspecified SNOMED: 55839664 Qualifiers: Qualified Codes: I95.3 - Hypotension of hemodialysis (8) Malnutrition ICD Codes: E46 - Unspecified protein-calorie malnutrition SNOMED: 95244542 Status: stable, not improved, unchanged, deteriorating Assessment/Plan: Continue vent support. Wean as able. Suctioning and pulmonary toilet. Continue G-tube feedings. Monitor residuals Continue current blood pressure regimen with close monitoring of blood pressure. Hemodialysis with ultrafiltration per nephrology. Turn every 2 hours and good skin care. monitor labs Discharge planning in progress Subjective ROS Limited/Unobtainable: No Constitutional: Reports: malaise, weakness HEENT: Reports: no symptoms Cardiovascular: Reports: no symptoms Respiratory: Reports: shortness of breath, sputum Gastrointestinal/Abdominal: Reports: difficulty swallowing Genitourinary: Reports: no symptoms Neurologic/Psychiatric: Reports: anxiety Endocrine: Reports: no symptoms Hematologic/Lymphatic: Reports: no symptoms Allergies: Coded Allergies: VANCOMYCIN (Unverified Allergy, Unknown, 08/02/19) All Systems: reviewed and negative except above Subjective There were no overnight events. Patient remained stable on the ventilator. She occasionally opens her eyes. Tolerating feedings. LFTS up Objective Last 24 Hour Vital Signs Date Time Temp Pulse Resp B/P (MAP) Pulse Ox O2 Delivery O2 Flow Rate FiO2 09/22/19 09:00 76 19 30 09/22/19 08:00 Mechanical Ventilator Mechanical Ventilator Mechanical Ventilator Mechanical Ventilator 09/22/19 08:00 64 09/22/19 08:00 30 09/22/19 08:00 97.0 71 18 155/92 (113) 100 09/22/19 07:40 69 19 30 09/22/19 06:21 157/67 09/22/19 04:47 62 18 30 09/22/19 04:00 30 09/22/19 04:00 97.5 69 19 149/77 (101) 99 09/22/19 04:00 Mechanical Ventilator Mechanical Ventilator Mechanical Ventilator Mechanical Ventilator 09/22/19 03:36 68 09/22/19 03:16 73 18 30 09/22/19 00:55 72 18 30 09/22/19 00:02 157/83 09/22/19 00:00 98.0 62 18 157/83 (107) 100 09/22/19 00:00 Mechanical Ventilator Mechanical Ventilator Mechanical Ventilator Mechanical Ventilator 09/21/19 23:48 72 17 100 Mechanical Ventilator 30 09/21/19 23:33 71 18 Mechanical Ventilator 30 30 09/21/19 23:25 75 09/21/19 21:25 77 19 30 09/21/19 20:02 74 18 100 Mechanical Ventilator 30 09/21/19 20:00 30 09/21/19 20:00 Mechanical Ventilator Mechanical Ventilator Mechanical Ventilator Mechanical Ventilator 09/21/19 20:00 97.0 69 18 147/96 (113) 100 09/21/19 19:47 71 18 Mechanical Ventilator 30 30 09/21/19 19:03 70 09/21/19 17:37 159/78 09/21/19 17:37 77 159/78 09/21/19 17:09 82 18 30 09/21/19 16:00 30 09/21/19 16:00 Mechanical Ventilator Mechanical Ventilator Mechanical Ventilator Mechanical Ventilator 09/21/19 16:00 97.0 77 18 159/78 (105) 100 09/21/19 16:00 68 09/21/19 14:47 66 18 100 Mechanical Ventilator 30 65 19 30 09/21/19 13:22 83 18 30 09/21/19 12:00 67 09/21/19 12:00 126/74 09/21/19 12:00 Mechanical Ventilator Mechanical Ventilator Mechanical Ventilator Mechanical Ventilator 09/21/19 12:00 97.2 60 18 126/74 (91) 100 09/21/19 12:00 30 09/21/19 11:29 72 18 100 Mechanical Ventilator 30 69 18 30 Intake and Output 09/21/19 09/22/19 19:00 07:00 Intake Total 550 ml 175 ml Output Total 1300 ml 400 ml Balance -750 ml -225 ml Intake Free Water 130 ml Tube Feeding 420 ml 175 ml Output Urine Total 300 ml 400 ml Hemodialysis UF 1000 ml # Bowel Movements 5 2 Laboratory Tests 09/22/19 06:15: White Blood Count 7.8, Red Blood Count 3.60L, Hemoglobin 10.5L, Hematocrit 32.0L , Mean Corpuscular Volume 89, Mean Corpuscular Hemoglobin 29.2, Mean Corpuscular Hemoglobin Concent 32.9, Red Cell Distribution Width 15.2H, Platelet Count 525H, Mean Platelet Volume 4.9L, Neutrophils (%) (Auto) 71.9, Lymphocytes (%) (Auto) 21.5, Monocytes (%) (Auto) 3.6, Eosinophils (%) (Auto) 2.0, Basophils (%) (Auto) 1.0, Erythrocyte Sedimentation Rate 101H, Prothrombin Time 10.9, Prothromb Time International Ratio 1.0, Activated Partial Thromboplast Time 35H, Sodium Level 137, Potassium Level 3.9, Chloride Level 98 , Carbon Dioxide Level 29, Anion Gap 10, Blood Urea Nitrogen 74H, Creatinine 2.8H, Estimat Glomerular Filtration Rate 16.3, Glucose Level 88, Calcium Level 9.1, Iron Level 46L, Total Iron Binding Capacity 65L, Percent Iron Saturation 71H, Unsaturated Iron Binding 19L, Ferritin 744H, Total Bilirubin 0.5, Aspartate Amino Transf (AST/SGOT) 558H, Alanine Aminotransferase (ALT/SGPT) 323H , Alkaline Phosphatase 359H, Total Creatine Kinase 49, C-Reactive Protein, Quantitative 15.8H, Total Protein 7.8, Albumin 2.6L, Globulin 5.2, Albumin/ Globulin Ratio 0.5L, Amylase Level 49, Lipase 330, Alpha Fetoprotein [Pending], Anti-Nuclear Antibody Screen [Pending], F-Actin IgG Antibody [Pending] Height (Feet): 5 Height (Inches): 4.00 Weight (Pounds): 112 Objective General Appearance: WD/WN, awake. looks around. no distress. thin and frail Neck: supple +trach Cardiovascular: normal rate Respiratory/Chest: rhonchi - bilaterally Abdomen: normal bowel sounds, non tender, soft, no organomegaly Edema: no edema noted Arm (L), no edema noted Arm (R), no edema noted Leg (L), no edema noted Leg (R), no edema noted Pedal (L), no edema noted Pedal (R), no edema noted Generalized Neurologic: disoriented, aphasia Skin: +excoriations Nate Beltran MD Sep 22, 2019 10:38
--- NOTE | 2019-09-22 11:00 | Diagnostic Imaging Report ---
Indication: Abnormal liver function tests, abnormal renal function tests Technique: Salas-scale and duplex images of the upper abdomen were obtained Comparison: 08/11/2019 Findings: There is a small right pleural effusion. There is a moderate left pleural effusion. There is a small amount of ascites. Gallbladder is unremarkable, without stones, wall thickening, nor pericholecystic fluid. Patient unable to report sonographic Hogue's sign. Common bile duct measures 3 mm in diameter. No intrahepatic biliary ductal dilatation. Liver demonstrates normal echogenicity. Adjacent to the gallbladder fossa, there is a small hypoechoic area that measures 11 x 11 x 19 mm Portal vein and hepatic veins are patent. Pancreas is unremarkable. Spleen is unremarkable. Left kidney measures 6.5 cm in length. Right kidney measures 7.1 cm length. Both kidneys demonstrate increased echogenicity There is no hydronephrosis. No focal abnormality . Non-aneurysmal abdominal aorta. The aorta is tortuous . Impression: Bilateral left greater than right pleural effusions Mild ascites 19 x 11 x 11 mm hypoechoic area in the liver adjacent to the gallbladder fossa. Although location is typical for area of focal sparing in a fatty liver, there are no findings to indicate fatty liver and this is a new finding since fairly recent previous exam. Therefore the possibility of a process such as small abscess should be considered. Atrophic echogenic kidneys Negative for gallstones or dilated bile ducts
--- NOTE | 2019-09-22 11:09 | Critical Care Progress Note ---
Assessment/Plan Assessment/Plan respiratory failure hemoptysis resolved hypoxemia chronic renal failure toxic met encephalopathy severe protein calorie malnutrition cachexia left lung whiteout/collapse, improved with intubation s/p intubation anemia ? blood loss pulmonary edema with elevated BNP + pleural effusion worsening s/p CT placement and removal s/p trach hypernatremia PLAN trach care as is repeat imaging care noted and reviewed monitor for fluid retention; imaging prn reviewed care and continue to monitor wean unable prognosis poor overall for change keep negative and monitor osmotic pressures fully dependent for now close follow up discussed elevated head and monitor ROM watch fluid status and keep negative nutrition and monitor residuals isolation reviewed off load as able and monitor skin exam ROM as able and monitor contractures prognosis poor for recovery will need LTAC impression, plan, and exam edited and reviewed in detail care discussed with liquor gallery 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 - Subjective Interval Events: care noted on vent reviewed details ROS Limited/Unobtainable: Yes Condition: critical EKG Rhythm: Sinus Rhythm Residuals: minimal Tube Feeding Tolerated: yes I&O: Intake and Output 09/21/19 09/22/19 19:00 07:00 Intake Total 550 ml 175 ml Output Total 1300 ml 400 ml Balance -750 ml -225 ml Intake Free Water 130 ml Tube Feeding 420 ml 175 ml Output Urine Total 300 ml 400 ml Hemodialysis UF 1000 ml # Bowel Movements 5 2 Critical Care - Objective ET-Tube: 7.0 ET Position: 19 Last 24 Hour Vital Signs Date Time Temp Pulse Resp B/P (MAP) Pulse Ox O2 Delivery O2 Flow Rate FiO2 09/22/19 09:00 76 19 30 09/22/19 08:00 Mechanical Ventilator Mechanical Ventilator Mechanical Ventilator Mechanical Ventilator 09/22/19 08:00 64 09/22/19 08:00 30 09/22/19 08:00 97.0 71 18 155/92 (113) 100 09/22/19 07:40 69 19 30 09/22/19 06:21 157/67 09/22/19 04:47 62 18 30 09/22/19 04:00 30 09/22/19 04:00 97.5 69 19 149/77 (101) 99 09/22/19 04:00 Mechanical Ventilator Mechanical Ventilator Mechanical Ventilator Mechanical Ventilator 09/22/19 03:36 68 09/22/19 03:16 73 18 30 09/22/19 00:55 72 18 30 09/22/19 00:02 157/83 09/22/19 00:00 98.0 62 18 157/83 (107) 100 09/22/19 00:00 Mechanical Ventilator Mechanical Ventilator Mechanical Ventilator Mechanical Ventilator 09/21/19 23:48 72 17 100 Mechanical Ventilator 30 09/21/19 23:33 71 18 Mechanical Ventilator 30 30 09/21/19 23:25 75 09/21/19 21:25 77 19 30 09/21/19 20:02 74 18 100 Mechanical Ventilator 30 09/21/19 20:00 30 09/21/19 20:00 Mechanical Ventilator Mechanical Ventilator Mechanical Ventilator Mechanical Ventilator 09/21/19 20:00 97.0 69 18 147/96 (113) 100 09/21/19 19:47 71 18 Mechanical Ventilator 30 30 09/21/19 19:03 70 09/21/19 17:37 159/78 09/21/19 17:37 77 159/78 09/21/19 17:09 82 18 30 09/21/19 16:00 30 09/21/19 16:00 Mechanical Ventilator Mechanical Ventilator Mechanical Ventilator Mechanical Ventilator 09/21/19 16:00 97.0 77 18 159/78 (105) 100 09/21/19 16:00 68 09/21/19 14:47 66 18 100 Mechanical Ventilator 30 65 19 30 09/21/19 13:22 83 18 30 09/21/19 12:00 67 09/21/19 12:00 126/74 09/21/19 12:00 Mechanical Ventilator Mechanical Ventilator Mechanical Ventilator Mechanical Ventilator 09/21/19 12:00 97.2 60 18 126/74 (91) 100 09/21/19 12:00 30 09/21/19 11:29 72 18 100 Mechanical Ventilator 30 69 18 30 Labs: Laboratory Tests Test 09/22/19 06:15 White Blood Count 7.8 K/UL (4.8-10.8) Red Blood Count 3.60 M/UL (4.20-5.40) L Hemoglobin 10.5 G/DL (12.0-16.0) L Hematocrit 32.0 % (37.0-47.0) L Mean Corpuscular Volume 89 FL (80-99) Mean Corpuscular Hemoglobin 29.2 PG (27.0-31.0) Mean Corpuscular Hemoglobin Concent 32.9 G/DL (32.0-36.0) Red Cell Distribution Width 15.2 % (11.6-14.8) H Platelet Count 525 K/UL (150-450) H Mean Platelet Volume 4.9 FL (6.5-10.1) L Neutrophils (%) (Auto) 71.9 % (45.0-75.0) Lymphocytes (%) (Auto) 21.5 % (20.0-45.0) Monocytes (%) (Auto) 3.6 % (1.0-10.0) Eosinophils (%) (Auto) 2.0 % (0.0-3.0) Basophils (%) (Auto) 1.0 % (0.0-2.0) Erythrocyte Sedimentation Rate 101 MM/HR (0-30) H Prothrombin Time 10.9 SEC (9.30-11.50) Prothromb Time International Ratio 1.0 (0.9-1.1) Activated Partial Thromboplast Time 35 SEC (23-33) H Sodium Level 137 MMOL/L (136-145) Potassium Level 3.9 MMOL/L (3.5-5.1) Chloride Level 98 MMOL/L (98-107) Carbon Dioxide Level 29 MMOL/L (21-32) Anion Gap 10 mmol/L (5-15) Blood Urea Nitrogen 74 mg/dL (7-18) H Creatinine 2.8 MG/DL (0.55-1.30) H Estimat Glomerular Filtration Rate 16.3 mL/min (>60) Glucose Level 88 MG/DL (74-106) Calcium Level 9.1 MG/DL (8.5-10.1) Iron Level 46 ug/dL (50-175) L Total Iron Binding Capacity 65 ug/dL (250-450) L Percent Iron Saturation 71 % (15-50) H Unsaturated Iron Binding 19 ug/dL (112-346) L Ferritin 744 NG/ML (8-388) H Total Bilirubin 0.5 MG/DL (0.2-1.0) Aspartate Amino Transf (AST/SGOT) 558 U/L (15-37) H Alanine Aminotransferase (ALT/SGPT) 323 U/L (12-78) H Alkaline Phosphatase 359 U/L (46-116) H Total Creatine Kinase 49 U/L (26-308) C-Reactive Protein, Quantitative 15.8 mg/dL (0.00-0.90) H Total Protein 7.8 G/DL (6.4-8.2) Albumin 2.6 G/DL (3.4-5.0) L Globulin 5.2 g/dL Albumin/Globulin Ratio 0.5 (1.0-2.7) L Amylase Level 49 U/L (25-115) Lipase 330 U/L (73-393) Alpha Fetoprotein Pending Anti-Nuclear Antibody Screen Pending F-Actin IgG Antibody Pending Objective: WDWN NAD trach in place reduced breath sounds left greater right; no rhonchi [id number] without MRG NABS nontender no HSM no CCE contractures feeding tube in place no distention reduced LOC and weak nonfocal cachectic reviewed and edited Accucheck: 105 Malcolm Cruz MD Sep 22, 2019 11:09
--- NOTE | 2019-09-22 11:38 | Infectious Diseases Prog Note ---
Assessment/Plan Assessment/Plan A; 1. Hailee sepsis treated 2. Klebsiella sepsis , treated 3. Right shoulder septic arthritis, status post surgery. 4. Diabetes. 5. Hypertension. 6. Anemia 7. Thrombocytopenia improving 9. Atelectasis , left lung collapse 10. Pleural effusion, hemothorax 11. Ulcerative esophagitis PLAN: 1. Observe off antibiotic Subjective ROS Limited/Unobtainable: Yes Allergies: Coded Allergies: VANCOMYCIN (Unverified Allergy, Unknown, 08/02/19) Objective Vital Signs Last 24 Hour Vital Signs Date Time Temp Pulse Resp B/P (MAP) Pulse Ox O2 Delivery O2 Flow Rate FiO2 09/22/19 11:19 61 18 30 09/22/19 09:00 76 19 30 09/22/19 08:00 Mechanical Ventilator Mechanical Ventilator Mechanical Ventilator Mechanical Ventilator 09/22/19 08:00 64 09/22/19 08:00 30 09/22/19 08:00 97.0 71 18 155/92 (113) 100 09/22/19 07:40 69 19 30 09/22/19 06:21 157/67 09/22/19 04:47 62 18 30 09/22/19 04:00 30 09/22/19 04:00 97.5 69 19 149/77 (101) 99 09/22/19 04:00 Mechanical Ventilator Mechanical Ventilator Mechanical Ventilator Mechanical Ventilator 09/22/19 03:36 68 09/22/19 03:16 73 18 30 09/22/19 00:55 72 18 30 09/22/19 00:02 157/83 09/22/19 00:00 98.0 62 18 157/83 (107) 100 09/22/19 00:00 Mechanical Ventilator Mechanical Ventilator Mechanical Ventilator Mechanical Ventilator 09/21/19 23:48 72 17 100 Mechanical Ventilator 30 09/21/19 23:33 71 18 Mechanical Ventilator 30 30 09/21/19 23:25 75 09/21/19 21:25 77 19 30 09/21/19 20:02 74 18 100 Mechanical Ventilator 30 09/21/19 20:00 30 09/21/19 20:00 Mechanical Ventilator Mechanical Ventilator Mechanical Ventilator Mechanical Ventilator 09/21/19 20:00 97.0 69 18 147/96 (113) 100 09/21/19 19:47 71 18 Mechanical Ventilator 30 30 09/21/19 19:03 70 09/21/19 17:37 159/78 09/21/19 17:37 77 159/78 09/21/19 17:09 82 18 30 09/21/19 16:00 30 09/21/19 16:00 Mechanical Ventilator Mechanical Ventilator Mechanical Ventilator Mechanical Ventilator 09/21/19 16:00 97.0 77 18 159/78 (105) 100 09/21/19 16:00 68 09/21/19 14:47 66 18 100 Mechanical Ventilator 30 65 19 30 09/21/19 13:22 83 18 30 09/21/19 12:00 67 09/21/19 12:00 126/74 09/21/19 12:00 Mechanical Ventilator Mechanical Ventilator Mechanical Ventilator Mechanical Ventilator 09/21/19 12:00 97.2 60 18 126/74 (91) 100 09/21/19 12:00 30 Height (Feet): 5 Height (Inches): 4.00 Weight (Pounds): 112 General Appearance: cachetic HEENT: mucous membranes moist Respiratory/Chest: rhonchi - bilaterally, other - on ventilator Cardiovascular: normal rate Abdomen: soft, non tender, other - GT feeding Extremities: no edema Neurologic/Psychiatric: aphasia Musculoskeletal: atrophy Laboratory Tests Test 09/22/19 06:15 White Blood Count 7.8 K/UL (4.8-10.8) Red Blood Count 3.60 M/UL (4.20-5.40) L Hemoglobin 10.5 G/DL (12.0-16.0) L Hematocrit 32.0 % (37.0-47.0) L Mean Corpuscular Volume 89 FL (80-99) Mean Corpuscular Hemoglobin 29.2 PG (27.0-31.0) Mean Corpuscular Hemoglobin Concent 32.9 G/DL (32.0-36.0) Red Cell Distribution Width 15.2 % (11.6-14.8) H Platelet Count 525 K/UL (150-450) H Mean Platelet Volume 4.9 FL (6.5-10.1) L Neutrophils (%) (Auto) 71.9 % (45.0-75.0) Lymphocytes (%) (Auto) 21.5 % (20.0-45.0) Monocytes (%) (Auto) 3.6 % (1.0-10.0) Eosinophils (%) (Auto) 2.0 % (0.0-3.0) Basophils (%) (Auto) 1.0 % (0.0-2.0) Erythrocyte Sedimentation Rate 101 MM/HR (0-30) H Prothrombin Time 10.9 SEC (9.30-11.50) Prothromb Time International Ratio 1.0 (0.9-1.1) Activated Partial Thromboplast Time 35 SEC (23-33) H Sodium Level 137 MMOL/L (136-145) Potassium Level 3.9 MMOL/L (3.5-5.1) Chloride Level 98 MMOL/L (98-107) Carbon Dioxide Level 29 MMOL/L (21-32) Anion Gap 10 mmol/L (5-15) Blood Urea Nitrogen 74 mg/dL (7-18) H Creatinine 2.8 MG/DL (0.55-1.30) H Estimat Glomerular Filtration Rate 16.3 mL/min (>60) Glucose Level 88 MG/DL (74-106) Calcium Level 9.1 MG/DL (8.5-10.1) Iron Level 46 ug/dL (50-175) L Total Iron Binding Capacity 65 ug/dL (250-450) L Percent Iron Saturation 71 % (15-50) H Unsaturated Iron Binding 19 ug/dL (112-346) L Ferritin 744 NG/ML (8-388) H Total Bilirubin 0.5 MG/DL (0.2-1.0) Aspartate Amino Transf (AST/SGOT) 558 U/L (15-37) H Alanine Aminotransferase (ALT/SGPT) 323 U/L (12-78) H Alkaline Phosphatase 359 U/L (46-116) H Total Creatine Kinase 49 U/L (26-308) C-Reactive Protein, Quantitative 15.8 mg/dL (0.00-0.90) H Total Protein 7.8 G/DL (6.4-8.2) Albumin 2.6 G/DL (3.4-5.0) L Globulin 5.2 g/dL Albumin/Globulin Ratio 0.5 (1.0-2.7) L Amylase Level 49 U/L (25-115) Lipase 330 U/L (73-393) Alpha Fetoprotein Pending Anti-Nuclear Antibody Screen Pending F-Actin IgG Antibody Pending Current Medications Medications (Trade) Dose Ordered Sig/Javier Route PRN Reason Start Time Stop Time Status Last Admin Dose Admin Acetaminophen (Tylenol) 650 mg Q4H PRN GT Mild Pain/Temp > 100.5 09/03/19 07:00 10/03/19 06:59 09/20/19 01:54 Acetylcysteine (Mucomyst) 100 mg Q4HRT HHN 08/31/19 19:00 11/29/19 18:59 09/21/19 23:35 Chlorhexidine Gluconate (Nae-Hex 2%) 1 applic DAILY@1999 TOPIC 09/17/19 20:00 12/16/19 19:59 09/21/19 20:11 Dextrose (Dextrose 50%) 25 ml Q30M PRN IV Hypoglycemia 09/02/19 06:15 12/01/19 06:14 09/04/19 12:11 Dextrose (Dextrose 50%) 50 ml Q30M PRN IV Hypoglycemia 09/02/19 06:15 12/01/19 06:14 Hydralazine HCl (Apresoline) 50 mg Q6HR NG 09/21/19 06:00 12/20/19 05:59 09/22/19 06:21 Levothyroxine Sodium (Synthroid) 125 mcg DAILY@0630 ORAL 09/22/19 06:30 10/22/19 06:29 09/22/19 06:21 Warren Parks MD Sep 22, 2019 11:38
[2019-09-22 12:00] VITALS: BP 172/80
--- NOTE | 2019-09-22 14:22 | Nephrology Progress Note ---
Assessment/Plan Problem List: (1) ESRD (end stage renal disease) on dialysis (2) Malnutrition (3) Anemia in CKD (chronic kidney disease) (4) Hypotension (5) Thrombocytopenia (6) Sepsis Assessment: klebsiella in blood Assessment -Early sepsis with shock. -Healthcare-associated pneumonia. -Severe protein-calorie malnutrition. -Thrombocytopenia. - End-stage renal disease. - History of hypertension. - Bradycardia. - HypoThyroid Plan Labs checked- Liver enzymes rising Tracheostomy September 07 Last dialysis September 16, next done September 20 Chest tube on the left side was put in on September 01 was discontinued September 07 Patient transfused 3 units of packed RBCs for low hemoglobin Remains full code Blood pressure fluctuating, will start hydralazine via NG tube for blood pressure Magnesium and potassium supplement intravenously as needed Patient underwent PEG placement August 16 patient remains intubated on ventilator Discussed with RN Aim to wean from ventilator or consider tracheostomy Permacath was removed on August 12 Dialysis 08/11 Transfusion as needed Patient had hematemesis meds IV as possible Surveillance blood cultures tomorrow Plan to put the permacath back in on Thursday if cultures are negative keep BP and BS in check Inflammatory markers per orders Subjective ROS Limited/Unobtainable: Yes Objective Objective Last 24 Hour Vital Signs Date Time Temp Pulse Resp B/P (MAP) Pulse Ox O2 Delivery O2 Flow Rate FiO2 09/22/19 13:25 65 18 30 09/22/19 12:52 155/92 09/22/19 12:00 63 09/22/19 12:00 30 09/22/19 12:00 Mechanical Ventilator Mechanical Ventilator Mechanical Ventilator Mechanical Ventilator 09/22/19 12:00 97.0 63 18 172/80 (110) 100 09/22/19 11:19 61 18 30 09/22/19 09:00 76 19 30 09/22/19 08:00 Mechanical Ventilator Mechanical Ventilator Mechanical Ventilator Mechanical Ventilator 09/22/19 08:00 64 09/22/19 08:00 30 09/22/19 08:00 97.0 71 18 155/92 (113) 100 09/22/19 07:40 69 19 30 09/22/19 06:21 157/67 09/22/19 04:47 62 18 30 09/22/19 04:00 30 09/22/19 04:00 97.5 69 19 149/77 (101) 99 09/22/19 04:00 Mechanical Ventilator Mechanical Ventilator Mechanical Ventilator Mechanical Ventilator 09/22/19 03:36 68 09/22/19 03:16 73 18 30 09/22/19 00:55 72 18 30 09/22/19 00:02 157/83 09/22/19 00:00 98.0 62 18 157/83 (107) 100 09/22/19 00:00 Mechanical Ventilator Mechanical Ventilator Mechanical Ventilator Mechanical Ventilator 09/21/19 23:48 72 17 100 Mechanical Ventilator 30 09/21/19 23:33 71 18 Mechanical Ventilator 30 30 09/21/19 23:25 75 09/21/19 21:25 77 19 30 09/21/19 20:02 74 18 100 Mechanical Ventilator 30 09/21/19 20:00 30 09/21/19 20:00 Mechanical Ventilator Mechanical Ventilator Mechanical Ventilator Mechanical Ventilator 09/21/19 20:00 97.0 69 18 147/96 (113) 100 09/21/19 19:47 71 18 Mechanical Ventilator 30 30 09/21/19 19:03 70 09/21/19 17:37 159/78 09/21/19 17:37 77 159/78 09/21/19 17:09 82 18 30 09/21/19 16:00 30 09/21/19 16:00 Mechanical Ventilator Mechanical Ventilator Mechanical Ventilator Mechanical Ventilator 09/21/19 16:00 97.0 77 18 159/78 (105) 100 09/21/19 16:00 68 09/21/19 14:47 66 18 100 Mechanical Ventilator 30 65 19 30 Intake and Output 09/21/19 09/22/19 19:00 07:00 Intake Total 550 ml 175 ml Output Total 1300 ml 400 ml Balance -750 ml -225 ml Intake Free Water 130 ml Tube Feeding 420 ml 175 ml Output Urine Total 300 ml 400 ml Hemodialysis UF 1000 ml # Bowel Movements 5 2 Laboratory Tests 09/22/19 06:15: White Blood Count 7.8, Red Blood Count 3.60L, Hemoglobin 10.5L, Hematocrit 32.0L , Mean Corpuscular Volume 89, Mean Corpuscular Hemoglobin 29.2, Mean Corpuscular Hemoglobin Concent 32.9, Red Cell Distribution Width 15.2H, Platelet Count 525H, Mean Platelet Volume 4.9L, Neutrophils (%) (Auto) 71.9, Lymphocytes (%) (Auto) 21.5, Monocytes (%) (Auto) 3.6, Eosinophils (%) (Auto) 2.0, Basophils (%) (Auto) 1.0, Erythrocyte Sedimentation Rate 101H, Prothrombin Time 10.9, Prothromb Time International Ratio 1.0, Activated Partial Thromboplast Time 35H, Sodium Level 137, Potassium Level 3.9, Chloride Level 98 , Carbon Dioxide Level 29, Anion Gap 10, Blood Urea Nitrogen 74H, Creatinine 2.8H, Estimat Glomerular Filtration Rate 16.3, Glucose Level 88, Calcium Level 9.1, Iron Level 46L, Total Iron Binding Capacity 65L, Percent Iron Saturation 71H, Unsaturated Iron Binding 19L, Ferritin 744H, Total Bilirubin 0.5, Aspartate Amino Transf (AST/SGOT) 558H, Alanine Aminotransferase (ALT/SGPT) 323H , Alkaline Phosphatase 359H, Total Creatine Kinase 49, C-Reactive Protein, Quantitative 15.8H, Total Protein 7.8, Albumin 2.6L, Globulin 5.2, Albumin/ Globulin Ratio 0.5L, Amylase Level 49, Lipase 330, Alpha Fetoprotein [Pending], Anti-Nuclear Antibody Screen [Pending], F-Actin IgG Antibody [Pending] Height (Feet): 5 Height (Inches): 4.00 Weight (Pounds): 112 General Appearance: no apparent distress Neck: other - Trached Cardiovascular: normal rate Respiratory/Chest: decreased breath sounds Abdomen: soft, other - PEG Objective no change William Blackwood MD Sep 22, 2019 14:22
--- NOTE | 2019-09-22 14:25 | Surgery Progress Note ---
Surgery Progress Note Subjective Procedure Performed 1. tracheostomy 2 removal of left tube thoracostomy Additional Comments lfts tending down nilda lip okay US noted Objective Last 24 Hour Vital Signs Date Time Temp Pulse Resp B/P (MAP) Pulse Ox O2 Delivery O2 Flow Rate FiO2 09/22/19 13:25 65 18 30 09/22/19 12:52 155/92 09/22/19 12:00 63 09/22/19 12:00 30 09/22/19 12:00 Mechanical Ventilator Mechanical Ventilator Mechanical Ventilator Mechanical Ventilator 09/22/19 12:00 97.0 63 18 172/80 (110) 100 09/22/19 11:19 61 18 30 09/22/19 09:00 76 19 30 09/22/19 08:00 Mechanical Ventilator Mechanical Ventilator Mechanical Ventilator Mechanical Ventilator 09/22/19 08:00 64 09/22/19 08:00 30 09/22/19 08:00 97.0 71 18 155/92 (113) 100 09/22/19 07:40 69 19 30 09/22/19 06:21 157/67 09/22/19 04:47 62 18 30 09/22/19 04:00 30 09/22/19 04:00 97.5 69 19 149/77 (101) 99 09/22/19 04:00 Mechanical Ventilator Mechanical Ventilator Mechanical Ventilator Mechanical Ventilator 09/22/19 03:36 68 09/22/19 03:16 73 18 30 09/22/19 00:55 72 18 30 09/22/19 00:02 157/83 09/22/19 00:00 98.0 62 18 157/83 (107) 100 09/22/19 00:00 Mechanical Ventilator Mechanical Ventilator Mechanical Ventilator Mechanical Ventilator 09/21/19 23:48 72 17 100 Mechanical Ventilator 30 09/21/19 23:33 71 18 Mechanical Ventilator 30 30 09/21/19 23:25 75 09/21/19 21:25 77 19 30 09/21/19 20:02 74 18 100 Mechanical Ventilator 30 09/21/19 20:00 30 09/21/19 20:00 Mechanical Ventilator Mechanical Ventilator Mechanical Ventilator Mechanical Ventilator 09/21/19 20:00 97.0 69 18 147/96 (113) 100 09/21/19 19:47 71 18 Mechanical Ventilator 30 30 09/21/19 19:03 70 09/21/19 17:37 159/78 09/21/19 17:37 77 159/78 09/21/19 17:09 82 18 30 09/21/19 16:00 30 09/21/19 16:00 Mechanical Ventilator Mechanical Ventilator Mechanical Ventilator Mechanical Ventilator 09/21/19 16:00 97.0 77 18 159/78 (105) 100 09/21/19 16:00 68 09/21/19 14:47 66 18 100 Mechanical Ventilator 30 65 19 30 I&O Intake and Output 09/21/19 09/22/19 19:00 07:00 Intake Total 550 ml 175 ml Output Total 1300 ml 400 ml Balance -750 ml -225 ml Intake Free Water 130 ml Tube Feeding 420 ml 175 ml Output Urine Total 300 ml 400 ml Hemodialysis UF 1000 ml # Bowel Movements 5 2 Dressing: other Wound: other Drains: other Cardiovascular: RSR Respiratory: decreased breath sounds Abdomen: soft, non-tender, present bowel sounds Extremities: no cyanosis Laboratory Tests Test 09/22/19 06:15 White Blood Count 7.8 K/UL (4.8-10.8) Red Blood Count 3.60 M/UL (4.20-5.40) L Hemoglobin 10.5 G/DL (12.0-16.0) L Hematocrit 32.0 % (37.0-47.0) L Mean Corpuscular Volume 89 FL (80-99) Mean Corpuscular Hemoglobin 29.2 PG (27.0-31.0) Mean Corpuscular Hemoglobin Concent 32.9 G/DL (32.0-36.0) Red Cell Distribution Width 15.2 % (11.6-14.8) H Platelet Count 525 K/UL (150-450) H Mean Platelet Volume 4.9 FL (6.5-10.1) L Neutrophils (%) (Auto) 71.9 % (45.0-75.0) Lymphocytes (%) (Auto) 21.5 % (20.0-45.0) Monocytes (%) (Auto) 3.6 % (1.0-10.0) Eosinophils (%) (Auto) 2.0 % (0.0-3.0) Basophils (%) (Auto) 1.0 % (0.0-2.0) Erythrocyte Sedimentation Rate 101 MM/HR (0-30) H Prothrombin Time 10.9 SEC (9.30-11.50) Prothromb Time International Ratio 1.0 (0.9-1.1) Activated Partial Thromboplast Time 35 SEC (23-33) H Sodium Level 137 MMOL/L (136-145) Potassium Level 3.9 MMOL/L (3.5-5.1) Chloride Level 98 MMOL/L (98-107) Carbon Dioxide Level 29 MMOL/L (21-32) Anion Gap 10 mmol/L (5-15) Blood Urea Nitrogen 74 mg/dL (7-18) H Creatinine 2.8 MG/DL (0.55-1.30) H Estimat Glomerular Filtration Rate 16.3 mL/min (>60) Glucose Level 88 MG/DL (74-106) Calcium Level 9.1 MG/DL (8.5-10.1) Iron Level 46 ug/dL (50-175) L Total Iron Binding Capacity 65 ug/dL (250-450) L Percent Iron Saturation 71 % (15-50) H Unsaturated Iron Binding 19 ug/dL (112-346) L Ferritin 744 NG/ML (8-388) H Total Bilirubin 0.5 MG/DL (0.2-1.0) Aspartate Amino Transf (AST/SGOT) 558 U/L (15-37) H Alanine Aminotransferase (ALT/SGPT) 323 U/L (12-78) H Alkaline Phosphatase 359 U/L (46-116) H Total Creatine Kinase 49 U/L (26-308) C-Reactive Protein, Quantitative 15.8 mg/dL (0.00-0.90) H Total Protein 7.8 G/DL (6.4-8.2) Albumin 2.6 G/DL (3.4-5.0) L Globulin 5.2 g/dL Albumin/Globulin Ratio 0.5 (1.0-2.7) L Amylase Level 49 U/L (25-115) Lipase 330 U/L (73-393) Alpha Fetoprotein Pending Anti-Nuclear Antibody Screen Pending F-Actin IgG Antibody Pending Assessment Post-op Diagnosis same Plan Problems: (1) Malnutrition Assessment & Plan: DAILY ESTIMATED NEEDS: Needs based on ESRD+ HD, underweight, wound/ 39.5kg 35-40 kcals/kg 3565-4186 total kcals 1.25-1.8 g protein/kg 49-71 g total protein 20-22 mL/kg 790-869 total fluid mLs NUTRITION DIAGNOSIS: * Increased kcal and protein needs r/t underweight status, HD needs, wuond healing as evidenced by pt is underweight per guidelines, ESRD, on HD, admitted non-blanching erythema wounds @ BL heels and sacrum * Swallowing difficulty R/T dysphagia as evidenced by [employer] recommends temporary nonoral feeding at this time, s/p NGT insertion, on NGT feeding-> now s/p self removal, NPO. CURRENT TF:NPO PO DIET RECOMMENDATIONS: WHEN SAFE FOR ORAL DIET -> renal/ texture per [employer] ENTERAL NUTRITION RECOMMENDATIONS: W/ GI access: Nepro @ 35ml/hr x 22 hrs to provide 770ml, 1386kcal, 62g prot, 560ml free water * W/ GI access, resume TF on Nepro * Initiate Nepro @ 15ml/hr x 6 hrs, advance 10ml q 4-6 hrs as tolerated to goal rate. * Hold 1 hour before and after Synthroid med * HOB over 30 degrees/ water flush per MD. ADDITIONAL RECOMMENDATIONS: 1) Calibrated bed scale wt for accurate CBW -> daily wt monitoring Per HD record: dry wt on 07/30=39.5kg (87lbs) 2) Wound care: (W/ GI access) add Nephorivte x 1 + Balta BID 3) Monitor NPO status: without GI access at this time, s/p pulling out NGT 4) Monitor for hypoglycemia while NPO 5) Monitor for continuity of HD (2) Septic arthritis Assessment & Plan: Pt presented on admission with generalized scaly rash . pt noted to be restless and scratching at skin. Bleeding from oral mucosa noted. Joint deformity noted to R shoulder. Surgical incision approximated with 11 sutures. Erythema but no exudate,or elevation in skin temp at site of incision. Historical incision R hip that is tunneled.Small amt seropurulent exudate noted. Periwound is erythematous,but no elevation in skin temp noted. No odor noted. Non-blanching erythema noted to sacrum. Perianal area is erythematous and excoriated. L heel is boggy with non-blanching erythema. R heel is soft with non-blanching erythema. No evidence of skin breakdown to all other bony prominences. Tx.plan: Cover R shoulder with Drsg and change daily and prn. Cleanse R hip wound with Saline. Apply Therahoney.Apply Cavilon Skin Barrier periwound. Cover with Optifoam drsg. Change every 3 days and prn. Apply Moisture Barrier Paste to perianal area and buttocks. Cover Sacrum with Optifoam drsg. Change every 3 days and prn. Apply Cavilon Skin Barrier to both heels. Cover each heel with Optifoam drsg. Change every 7 days and prn. APM/ELVIA Mattress overlay. Reposition at least every 2hours or as tolerated. Off-load heels with pillow. HD cath necessary HD as renal likely will need intubation 19 x 11 x 11 mm hypoechoic area in the liver adjacent to the gallbladder fossa. Although location is typical for area of focal sparing in a fatty liver, there are no findings to indicate fatty liver and this is a new finding since fairly recent previous exam. Therefore the possibility of a process such as small abscess should be considered. Atrophic echogenic kidneys Negative for gallstones or dilated bile ducts (3) Wound, open, hip or thigh with complication Assessment & Plan: slow healing will need nutritional optimization difficult ng tube peg when stable sutures removed from right shoulder comfortable wean vent may need trach (4) Abscess of right hip (5) possible septic arthritis (6) Renal failure (ARF), acute on chronic Assessment & Plan: cont HD will need tunneled cath placement okay to use fem line for now but will need change soon. line monitored and clean dressings going well (7) Pneumonia Assessment & Plan: intubated on vent support not tolerating weaning may need trach hemothorax likely after thoracentesis Chest CT noted Left chest tube placed With plan for trach chest tube can be considered but overall prognosis is very poor s/p trach left chest tub eout cxr noted and okay downgrade left pleural effusion dressings saturated will need to monitor. may need another chest tube as may not heal well on left side Camilo James Sep 22, 2019 14:25
[2019-09-22] MEDS: Albuterol/Ipratropium 3ml neb HHN SCH ×4 (15:25→23:45)
[2019-09-22 16:00] VITALS: BP 157/88
[2019-09-22] MEDS: Metamucil Pkt ORAL SCH (16:19)
[2019-09-22 20:00] VITALS: BP 186/88
[2019-09-22] MEDS: Dyna-Hex 2% Top Sol 2oz TOPIC SCH (21:47)
--- NOTE | 2019-09-22 21:54 | General Progress Note ---
Assessment/Plan Status: stable, not improved, unchanged, deteriorating Assessment/Plan: Assessment - Severe ulcerative esophagitis - mild elevation in LFT, Hepatitis B/C negative --> now sudden rise - ? related to new 1.9 cm mass near GB - ? autoimmune / high ESR - abnormal liver on CT - ? chronic disease / fibrosis - Resp failure - trach - s/p recent Chest tube and removal - Renal failure - aspiration risk --> s/p PEG - anemia - bradycardia - Poor prognosis Recommendations - check CT w/o contrast - check autoimmune markers - pending - check Iron panel - check AFP - GT care - water flushes - elevate HOB - monitor H&H - vent Subjective Allergies: Coded Allergies: VANCOMYCIN (Unverified Allergy, Unknown, 08/02/19) Subjective above noted NAD tolerating TF LFT still elevated Objective Last 24 Hour Vital Signs Date Time Temp Pulse Resp B/P (MAP) Pulse Ox O2 Delivery O2 Flow Rate FiO2 09/22/19 21:47 186/88 09/22/19 21:13 80 19 30 09/22/19 19:54 72 19 100 Mechanical Ventilator 30 75 19 30 09/22/19 18:30 157/88 09/22/19 17:15 67 18 30 09/22/19 16:00 69 09/22/19 16:00 Mechanical Ventilator Mechanical Ventilator Mechanical Ventilator Mechanical Ventilator 09/22/19 16:00 30 09/22/19 16:00 97.0 72 18 157/88 (111) 100 09/22/19 15:38 68 21 100 Mechanical Ventilator 30 66 18 100 09/22/19 15:25 66 19 30 09/22/19 13:25 65 18 30 09/22/19 12:52 155/92 09/22/19 12:00 63 09/22/19 12:00 30 09/22/19 12:00 Mechanical Ventilator Mechanical Ventilator Mechanical Ventilator Mechanical Ventilator 09/22/19 12:00 97.0 63 18 172/80 (110) 100 09/22/19 11:19 61 18 30 09/22/19 09:00 76 19 30 09/22/19 08:00 Mechanical Ventilator Mechanical Ventilator Mechanical Ventilator Mechanical Ventilator 09/22/19 08:00 64 09/22/19 08:00 30 09/22/19 08:00 97.0 71 18 155/92 (113) 100 09/22/19 07:40 69 19 30 09/22/19 06:21 157/67 09/22/19 04:47 62 18 30 09/22/19 04:00 30 09/22/19 04:00 97.5 69 19 149/77 (101) 99 09/22/19 04:00 Mechanical Ventilator Mechanical Ventilator Mechanical Ventilator Mechanical Ventilator 09/22/19 03:36 68 09/22/19 03:16 73 18 30 09/22/19 00:55 72 18 30 09/22/19 00:02 157/83 09/22/19 00:00 98.0 62 18 157/83 (107) 100 09/22/19 00:00 Mechanical Ventilator Mechanical Ventilator Mechanical Ventilator Mechanical Ventilator 09/21/19 23:48 72 17 100 Mechanical Ventilator 30 09/21/19 23:33 71 18 Mechanical Ventilator 30 30 09/21/19 23:25 75 Intake and Output 09/21/19 09/22/19 19:00 07:00 Intake Total 550 ml 175 ml Output Total 1300 ml 400 ml Balance -750 ml -225 ml Intake Free Water 130 ml Tube Feeding 420 ml 175 ml Output Urine Total 300 ml 400 ml Hemodialysis UF 1000 ml # Bowel Movements 5 2 Laboratory Tests 09/22/19 06:15: White Blood Count 7.8, Red Blood Count 3.60L, Hemoglobin 10.5L, Hematocrit 32.0L , Mean Corpuscular Volume 89, Mean Corpuscular Hemoglobin 29.2, Mean Corpuscular Hemoglobin Concent 32.9, Red Cell Distribution Width 15.2H, Platelet Count 525H, Mean Platelet Volume 4.9L, Neutrophils (%) (Auto) 71.9, Lymphocytes (%) (Auto) 21.5, Monocytes (%) (Auto) 3.6, Eosinophils (%) (Auto) 2.0, Basophils (%) (Auto) 1.0, Erythrocyte Sedimentation Rate 101H, Prothrombin Time 10.9, Prothromb Time International Ratio 1.0, Activated Partial Thromboplast Time 35H, Sodium Level 137, Potassium Level 3.9, Chloride Level 98 , Carbon Dioxide Level 29, Anion Gap 10, Blood Urea Nitrogen 74H, Creatinine 2.8H, Estimat Glomerular Filtration Rate 16.3, Glucose Level 88, Calcium Level 9.1, Iron Level 46L, Total Iron Binding Capacity 65L, Percent Iron Saturation 71H, Unsaturated Iron Binding 19L, Ferritin 744H, Total Bilirubin 0.5, Aspartate Amino Transf (AST/SGOT) 558H, Alanine Aminotransferase (ALT/SGPT) 323H , Alkaline Phosphatase 359H, Total Creatine Kinase 49, C-Reactive Protein, Quantitative 15.8H, Total Protein 7.8, Albumin 2.6L, Globulin 5.2, Albumin/ Globulin Ratio 0.5L, Amylase Level 49, Lipase 330, Alpha Fetoprotein [Pending], Anti-Nuclear Antibody Screen [Pending], F-Actin IgG Antibody [Pending] Height (Feet): 5 Height (Inches): 4.00 Weight (Pounds): 112 Objective Debilitated frail woman NCAT (+) on vent supple, (+) trach scattered ronchi RR abd soft ND NT, (+) GT no edema Cristy Elizondo MD Sep 22, 2019 21:54
[2019-09-23] VITALS (7 sets, daily range): BP systolic 145–157; BP diastolic 62–97
[2019-09-23] MEDS: HydrALAZINE 25mg tab NG SCH ×2 (00:12→05:37)
--- NOTE | 2019-09-23 02:45 | Progress Note ---
DATE: 09/22/2019 SUBJECTIVE: No new events. Stable on ventilator, tolerating feedings. PHYSICAL EXAMINATION: VITAL SIGNS: Blood pressure 155/92, heart rate 71, respiratory rate 18. LUNGS: Bilateral breath sounds. No wheezing. Thin trach secretions. CARDIAC: Regular rhythm and rate. Normal S1, S2. ABDOMEN: Soft. EXTREMITIES: Trace edema. LABORATORY AND DIAGNOSTIC DATA: White count 7.8, hemoglobin 10.5, sodium 137, potassium 3.9, bicarb 29, BUN 34, creatinine 2.8. Liver function studies slightly improved. Abdominal ultrasound reveals, left greater than right pleural effusions and mild ascites. Liver abnormalities suggestive of possible abscess. PLAN: 1. May need further imaging of hepatobiliary tract. 2. Cardiovascular parameters remain stable, although blood pressure parameters ranging upward. 3. We will continue as needed therapy for blood pressure spikes for now until etiology of hepatobiliary abnormalities are determined. Abel Stubbs M.D. DR: Rebecca JOB#: [id number] CC:
[2019-09-23] MEDS: Albuterol/Ipratropium 3ml neb HHN SCH ×5 (03:09→20:32)
[2019-09-23] MEDS: Levothyroxine 125mcg tab ORAL SCH (05:36)
--- NOTE | 2019-09-23 07:40 | General Progress Note ---
Assessment/Plan Problem List: (1) Hypothyroid ICD Codes: E03.9 - Hypothyroidism, unspecified SNOMED: 65364787 (2) ESRD (end stage renal disease) on dialysis ICD Codes: N18.6 - End stage renal disease; Z99.2 - Dependence on renal dialysis SNOMED: 396187440 (3) Hypotension ICD Codes: I95.9 - Hypotension, unspecified SNOMED: 90005495 Qualifiers: Qualified Codes: I95.3 - Hypotension of hemodialysis (4) Pneumonia ICD Codes: J18.9 - Pneumonia, unspecified organism SNOMED: 920672108 Qualifiers: Qualified Codes: J18.9 - Pneumonia, unspecified organism (5) Diabetes mellitus ICD Codes: E11.9 - Type 2 diabetes mellitus without complications SNOMED: 01460621 Status: stable, not improved, unchanged, deteriorating Assessment/Plan: continue Levothyroxine tablet dose to 125 mcg daily repeat TSH, free 4 next week continue glucose monitoring without insulin coverage hypoglycemia protocol in order Subjective ROS Limited/Unobtainable: Yes Allergies: Coded Allergies: VANCOMYCIN (Unverified Allergy, Unknown, 08/02/19) Subjective events noted interval notes reviewed glucose values are stable Item Value Date Time Bedside Blood Glucose 99 mg/dl 09/23/19 0552 Bedside Blood Glucose 76 mg/dl 09/23/19 0000 Bedside Blood Glucose 96 mg/dl 09/22/19 1815 Bedside Blood Glucose 131 mg/dl H 09/22/19 1200 Objective Last 24 Hour Vital Signs Date Time Temp Pulse Resp B/P (MAP) Pulse Ox O2 Delivery O2 Flow Rate FiO2 09/23/19 05:37 145/76 09/23/19 05:08 62 18 30 09/23/19 04:00 97.4 63 18 145/76 (99) 100 09/23/19 04:00 30 09/23/19 04:00 Mechanical Ventilator Mechanical Ventilator Mechanical Ventilator Mechanical Ventilator 09/23/19 04:00 72 09/23/19 03:10 69 18 100 Mechanical Ventilator 30 64 18 30 09/23/19 00:43 62 19 30 09/23/19 00:12 151/78 09/23/19 00:00 97.2 60 18 151/68 (95) 100 09/23/19 00:00 Mechanical Ventilator Mechanical Ventilator Mechanical Ventilator Mechanical Ventilator 09/22/19 23:43 59 18 100 Mechanical Ventilator 30 64 18 30 09/22/19 21:47 186/88 09/22/19 21:13 80 19 30 09/22/19 20:00 72 09/22/19 20:00 Mechanical Ventilator Mechanical Ventilator Mechanical Ventilator Mechanical Ventilator 09/22/19 20:00 97.0 74 18 186/88 (120) 100 09/22/19 20:00 30 09/22/19 19:54 72 19 100 Mechanical Ventilator 30 75 19 30 09/22/19 18:30 157/88 09/22/19 17:15 67 18 30 09/22/19 16:00 69 09/22/19 16:00 Mechanical Ventilator Mechanical Ventilator Mechanical Ventilator Mechanical Ventilator 09/22/19 16:00 30 09/22/19 16:00 97.0 72 18 157/88 (111) 100 09/22/19 15:38 68 21 100 Mechanical Ventilator 30 66 18 100 09/22/19 15:25 66 19 30 09/22/19 13:25 65 18 30 09/22/19 12:52 155/92 09/22/19 12:00 63 09/22/19 12:00 30 09/22/19 12:00 Mechanical Ventilator Mechanical Ventilator Mechanical Ventilator Mechanical Ventilator 09/22/19 12:00 97.0 63 18 172/80 (110) 100 09/22/19 11:19 61 18 30 09/22/19 09:00 76 19 30 09/22/19 08:00 Mechanical Ventilator Mechanical Ventilator Mechanical Ventilator Mechanical Ventilator 09/22/19 08:00 64 09/22/19 08:00 30 09/22/19 08:00 97.0 71 18 155/92 (113) 100 09/22/19 07:40 69 19 30 Intake and Output 09/22/19 09/23/19 19:00 07:00 Intake Total 350 ml 280 ml Balance 350 ml 280 ml Tube Feeding 350 ml 280 ml # Bowel Movements 7 4 Height (Feet): 5 Height (Inches): 4.00 Weight (Pounds): 112 General Appearance: no apparent distress Neck: normal alignment Cardiovascular: normal rate Respiratory/Chest: rhonchi - bilaterally Abdomen: normal bowel sounds Pelvis: normal external exam Objective Current Medications Medications (Trade) Dose Ordered Sig/Javier Route PRN Reason Start Time Stop Time Status Last Admin Dose Admin Acetaminophen (Tylenol) 650 mg Q4H PRN GT Mild Pain/Temp > 100.5 09/03/19 07:00 10/03/19 06:59 09/20/19 01:54 Acetylcysteine (Mucomyst) 100 mg Q4HRT HHN 08/31/19 19:00 11/29/19 18:59 09/23/19 07:15 Albuterol/ Ipratropium (Albuterol/ Ipratropium) 3 ml Q4HRT HHN 09/22/19 15:00 12/09/19 14:59 09/23/19 07:15 Barium Sulfate (Readi-Cat 2) 450 ml NOW PRN ORAL Radiology Procedure 09/22/19 21:45 09/24/19 21:38 Chlorhexidine Gluconate (Nae-Hex 2%) 1 applic DAILY@1999 TOPIC 09/17/19 20:00 12/16/19 19:59 09/22/19 21:47 Clonidine HCl (Catapres Tab) 0.1 mg Q4H PRN ORAL For High Blood Pressure 09/22/19 21:00 12/21/19 20:59 09/22/19 21:47 Dextrose (Dextrose 50%) 25 ml Q30M PRN IV Hypoglycemia 09/02/19 06:15 12/01/19 06:14 09/04/19 12:11 Dextrose (Dextrose 50%) 50 ml Q30M PRN IV Hypoglycemia 09/02/19 06:15 12/01/19 06:14 Hydralazine HCl (Apresoline) 50 mg Q6HR NG 09/21/19 06:00 12/20/19 05:59 09/23/19 05:37 Levothyroxine Sodium (Synthroid) 125 mcg DAILY@0630 ORAL 09/22/19 06:30 10/22/19 06:29 09/23/19 05:36 Psyllium Hydrophilic Mucilloid (Metamucil) 1 pkt DAILY ORAL 09/22/19 15:00 10/22/19 14:59 09/22/19 16:19 Antonio Jacome MD Sep 23, 2019 07:40
--- NOTE | 2019-09-23 08:34 | General Progress Note ---
Assessment/Plan Problem List: (1) Failure to thrive (0-17) ICD Codes: R62.51 - Failure to thrive (0-17) SNOMED: 447234331 (2) Hypertensive kidney disease ICD Codes: I12.9 - Hypertensive chronic kidney disease with stage 1 through stage 4 chronic kidney disease, or unspecified chronic kidney disease SNOMED: 19070891 (3) Pneumonia ICD Codes: J18.9 - Pneumonia, unspecified organism SNOMED: 930554416 Qualifiers: Qualified Codes: J18.9 - Pneumonia, unspecified organism (4) ESRD (end stage renal disease) ICD Codes: N18.6 - End stage renal disease SNOMED: 30320892 (5) Septic arthritis ICD Codes: M00.9 - Pyogenic arthritis, unspecified SNOMED: 303503881 (6) Thrombocytopenia ICD Codes: D69.6 - Thrombocytopenia, unspecified SNOMED: 869833396 (7) Hypotension ICD Codes: I95.9 - Hypotension, unspecified SNOMED: 95641910 Qualifiers: Qualified Codes: I95.3 - Hypotension of hemodialysis (8) Malnutrition ICD Codes: E46 - Unspecified protein-calorie malnutrition SNOMED: 57349623 Status: stable, not improved, unchanged, deteriorating Assessment/Plan: Continue vent support. Wean as able. Suctioning and pulmonary toilet. Continue G-tube feedings. Monitor residuals Continue current blood pressure regimen with close monitoring of blood pressure. Hemodialysis with ultrafiltration per nephrology. Turn every 2 hours and good skin care. monitor labs/lfts Discharge planning in progress Subjective ROS Limited/Unobtainable: No Constitutional: Reports: malaise, weakness HEENT: Reports: no symptoms Cardiovascular: Reports: no symptoms Respiratory: Reports: sputum Gastrointestinal/Abdominal: Reports: difficulty swallowing Genitourinary: Reports: no symptoms Neurologic/Psychiatric: Reports: pre-existing deficit Endocrine: Reports: no symptoms Hematologic/Lymphatic: Reports: anemia Allergies: Coded Allergies: VANCOMYCIN (Unverified Allergy, Unknown, 08/02/19) All Systems: reviewed and negative except above Subjective There were no overnight events. Patient remained stable on the ventilator. She occasionally opens her eyes. Tolerating feedings. Objective Last 24 Hour Vital Signs Date Time Temp Pulse Resp B/P (MAP) Pulse Ox O2 Delivery O2 Flow Rate FiO2 09/23/19 07:30 57 18 100 Mechanical Ventilator 30 60 18 30 09/23/19 05:37 145/76 09/23/19 05:08 62 18 30 09/23/19 04:00 97.4 63 18 145/76 (99) 100 09/23/19 04:00 30 09/23/19 04:00 Mechanical Ventilator Mechanical Ventilator Mechanical Ventilator Mechanical Ventilator 09/23/19 04:00 72 09/23/19 03:10 69 18 100 Mechanical Ventilator 30 64 18 30 09/23/19 00:43 62 19 30 09/23/19 00:12 151/78 09/23/19 00:00 97.2 60 18 151/68 (95) 100 09/23/19 00:00 Mechanical Ventilator Mechanical Ventilator Mechanical Ventilator Mechanical Ventilator 09/22/19 23:43 59 18 100 Mechanical Ventilator 30 64 18 30 09/22/19 21:47 186/88 09/22/19 21:13 80 19 30 09/22/19 20:00 72 09/22/19 20:00 Mechanical Ventilator Mechanical Ventilator Mechanical Ventilator Mechanical Ventilator 09/22/19 20:00 97.0 74 18 186/88 (120) 100 09/22/19 20:00 30 09/22/19 19:54 72 19 100 Mechanical Ventilator 30 75 19 30 09/22/19 18:30 157/88 09/22/19 17:15 67 18 30 09/22/19 16:00 69 09/22/19 16:00 Mechanical Ventilator Mechanical Ventilator Mechanical Ventilator Mechanical Ventilator 09/22/19 16:00 30 09/22/19 16:00 97.0 72 18 157/88 (111) 100 09/22/19 15:38 68 21 100 Mechanical Ventilator 30 66 18 100 09/22/19 15:25 66 19 30 09/22/19 13:25 65 18 30 09/22/19 12:52 155/92 09/22/19 12:00 63 09/22/19 12:00 30 09/22/19 12:00 Mechanical Ventilator Mechanical Ventilator Mechanical Ventilator Mechanical Ventilator 09/22/19 12:00 97.0 63 18 172/80 (110) 100 09/22/19 11:19 61 18 30 09/22/19 09:00 76 19 30 Intake and Output 09/22/19 09/23/19 19:00 07:00 Intake Total 350 ml 280 ml Balance 350 ml 280 ml Tube Feeding 350 ml 280 ml # Bowel Movements 7 4 Height (Feet): 5 Height (Inches): 4.00 Weight (Pounds): 112 Objective General Appearance: WD/WN, awake. looks around. no distress. thin and frail Neck: supple +trach Cardiovascular: normal rate Respiratory/Chest: rhonchi - bilaterally Abdomen: normal bowel sounds, non tender, soft, no organomegaly Edema: no edema noted Arm (L), no edema noted Arm (R), no edema noted Leg (L), no edema noted Leg (R), no edema noted Pedal (L), no edema noted Pedal (R), no edema noted Generalized Neurologic: disoriented, aphasia Skin: +excoriations Nate Beltran MD Sep 23, 2019 08:34
--- NOTE | 2019-09-23 08:57 | Critical Care Progress Note ---
Assessment/Plan Assessment/Plan respiratory failure hemoptysis resolved hypoxemia chronic renal failure toxic met encephalopathy severe protein calorie malnutrition cachexia left lung whiteout/collapse, improved with intubation s/p intubation anemia ? blood loss pulmonary edema with elevated BNP + pleural effusion worsening s/p CT placement and removal s/p trach hypernatremia PLAN trach care as is repeat imaging noted care noted and reviewed monitor for fluid retention; imaging next week reviewed care and continue to monitor wean unable with multiple co morbidities prognosis poor overall for change keep negative and monitor osmotic pressures fully dependent for now close follow up discussed elevated head and monitor ROM watch fluid status and keep negative nutrition and monitor residuals isolation reviewed off load as able and monitor skin exam ROM as able and monitor contractures prognosis poor for recovery will need LTAC impression, plan, and exam edited and reviewed in detail care discussed with warehouse foreman - Subjective Interval Events: reviewed overnight events remains in ALYSSA full support noted ROS Limited/Unobtainable: Yes Condition: unchanged EKG Rhythm: Sinus Rhythm Residuals: minimal Tube Feeding Tolerated: yes I&O: Intake and Output 09/22/19 09/23/19 19:00 07:00 Intake Total 350 ml 280 ml Balance 350 ml 280 ml Tube Feeding 350 ml 280 ml # Bowel Movements 7 4 Critical Care - Objective ET-Tube: 7.0 ET Position: 19 Last 24 Hour Vital Signs Date Time Temp Pulse Resp B/P (MAP) Pulse Ox O2 Delivery O2 Flow Rate FiO2 09/23/19 08:25 Mechanical Ventilator Mechanical Ventilator Mechanical Ventilator Mechanical Ventilator 09/23/19 08:00 30 09/23/19 07:30 57 18 100 Mechanical Ventilator 30 60 18 30 09/23/19 05:37 145/76 09/23/19 05:08 62 18 30 09/23/19 04:00 97.4 63 18 145/76 (99) 100 09/23/19 04:00 30 09/23/19 04:00 Mechanical Ventilator Mechanical Ventilator Mechanical Ventilator Mechanical Ventilator 09/23/19 04:00 72 09/23/19 03:10 69 18 100 Mechanical Ventilator 30 64 18 30 09/23/19 00:43 62 19 30 09/23/19 00:12 151/78 09/23/19 00:00 97.2 60 18 151/68 (95) 100 09/23/19 00:00 Mechanical Ventilator Mechanical Ventilator Mechanical Ventilator Mechanical Ventilator 09/22/19 23:43 59 18 100 Mechanical Ventilator 30 64 18 30 09/22/19 21:47 186/88 09/22/19 21:13 80 19 30 09/22/19 20:00 72 09/22/19 20:00 Mechanical Ventilator Mechanical Ventilator Mechanical Ventilator Mechanical Ventilator 09/22/19 20:00 97.0 74 18 186/88 (120) 100 09/22/19 20:00 30 09/22/19 19:54 72 19 100 Mechanical Ventilator 30 75 19 30 09/22/19 18:30 157/88 09/22/19 17:15 67 18 30 09/22/19 16:00 69 09/22/19 16:00 Mechanical Ventilator Mechanical Ventilator Mechanical Ventilator Mechanical Ventilator 09/22/19 16:00 30 09/22/19 16:00 97.0 72 18 157/88 (111) 100 09/22/19 15:38 68 21 100 Mechanical Ventilator 30 66 18 100 09/22/19 15:25 66 19 30 09/22/19 13:25 65 18 30 09/22/19 12:52 155/92 09/22/19 12:00 63 09/22/19 12:00 30 09/22/19 12:00 Mechanical Ventilator Mechanical Ventilator Mechanical Ventilator Mechanical Ventilator 09/22/19 12:00 97.0 63 18 172/80 (110) 100 09/22/19 11:19 61 18 30 09/22/19 09:00 76 19 30 Labs: Labs Test 09/20/19 11:00 09/21/19 06:06 09/22/19 06:15 Thyroid Stimulating Hormone (TSH) 7.468 uiU/mL (0.358-3.740) Free Thyroxine 1.54 NG/DL (0.76-1.46) White Blood Count 11.0 K/UL (4.8-10.8) 7.8 K/UL (4.8-10.8) Red Blood Count 3.75 M/UL (4.20-5.40) 3.60 M/UL (4.20-5.40) Hemoglobin 11.0 G/DL (12.0-16.0) 10.5 G/DL (12.0-16.0) Hematocrit 33.2 % (37.0-47.0) 32.0 % (37.0-47.0) Mean Corpuscular Volume 89 FL (80-99) 89 FL (80-99) Mean Corpuscular Hemoglobin 29.2 PG (27.0-31.0) 29.2 PG (27.0-31.0) Mean Corpuscular Hemoglobin Concent 33.0 G/DL (32.0-36.0) 32.9 G/DL (32.0-36.0) Red Cell Distribution Width 15.0 % (11.6-14.8) 15.2 % (11.6-14.8) Platelet Count 525 K/UL (150-450) 525 K/UL (150-450) Mean Platelet Volume 4.9 FL (6.5-10.1) 4.9 FL (6.5-10.1) Neutrophils (%) (Auto) 77.1 % (45.0-75.0) 71.9 % (45.0-75.0) Lymphocytes (%) (Auto) 17.6 % (20.0-45.0) 21.5 % (20.0-45.0) Monocytes (%) (Auto) 2.9 % (1.0-10.0) 3.6 % (1.0-10.0) Eosinophils (%) (Auto) 1.9 % (0.0-3.0) 2.0 % (0.0-3.0) Basophils (%) (Auto) 0.5 % (0.0-2.0) 1.0 % (0.0-2.0) Sodium Level 134 MMOL/L (136-145) 137 MMOL/L (136-145) Potassium Level 3.9 MMOL/L (3.5-5.1) 3.9 MMOL/L (3.5-5.1) Chloride Level 96 MMOL/L (98-107) 98 MMOL/L (98-107) Carbon Dioxide Level 28 MMOL/L (21-32) 29 MMOL/L (21-32) Anion Gap 10 mmol/L (5-15) 10 mmol/L (5-15) Blood Urea Nitrogen 103 mg/dL (7-18) 74 mg/dL (7-18) Creatinine 3.6 MG/DL (0.55-1.30) 2.8 MG/DL (0.55-1.30) Estimat Glomerular Filtration Rate 12.2 mL/min (>60) 16.3 mL/min (>60) Glucose Level 112 MG/DL (74-106) 88 MG/DL (74-106) Calcium Level 9.2 MG/DL (8.5-10.1) 9.1 MG/DL (8.5-10.1) Phosphorus Level 4.9 MG/DL (2.5-4.9) Total Bilirubin 0.5 MG/DL (0.2-1.0) 0.5 MG/DL (0.2-1.0) Aspartate Amino Transf (AST/SGOT) 853 U/L (15-37) 558 U/L (15-37) Alanine Aminotransferase (ALT/SGPT) 361 U/L (12-78) 323 U/L (12-78) Alkaline Phosphatase 340 U/L (46-116) 359 U/L (46-116) C-Reactive Protein, Quantitative 17.0 mg/dL (0.00-0.90) 15.8 mg/dL (0.00-0.90) Pro-B-Type Natriuretic Peptide > 49569 pg/mL (0-125) Total Protein 7.4 G/DL (6.4-8.2) 7.8 G/DL (6.4-8.2) Albumin 2.4 G/DL (3.4-5.0) 2.6 G/DL (3.4-5.0) Globulin 5.0 g/dL 5.2 g/dL Albumin/Globulin Ratio 0.5 (1.0-2.7) 0.5 (1.0-2.7) Erythrocyte Sedimentation Rate 101 MM/HR (0-30) Prothrombin Time 10.9 SEC (9.30-11.50) Prothromb Time International Ratio 1.0 (0.9-1.1) Activated Partial Thromboplast Time 35 SEC (23-33) Iron Level 46 ug/dL (50-175) Total Iron Binding Capacity 65 ug/dL (250-450) Percent Iron Saturation 71 % (15-50) Unsaturated Iron Binding 19 ug/dL (112-346) Ferritin 744 NG/ML (8-388) Total Creatine Kinase 49 U/L (26-308) Amylase Level 49 U/L (25-115) Lipase 330 U/L (73-393) Alpha Fetoprotein <0.9 ng/mL (0.0-8.3) Anti-Nuclear Antibody Screen Negative (Negative) Objective: WDWN NAD trach in place reduced breath sounds left greater right; no rhonchi [id number] without MRG NABS nontender no HSM no CCE contractures feeding tube in place no distention reduced LOC and weak nonfocal cachectic reviewed and edited Accucheck: 99 Malcolm Cruz MD Sep 23, 2019 08:57
[2019-09-23] MEDS: Metamucil Pkt ORAL SCH (09:00)
--- NOTE | 2019-09-23 09:03 | General Progress Note ---
Assessment/Plan Status: stable, not improved, unchanged, deteriorating Assessment/Plan: Assessment - Severe ulcerative esophagitis - mild elevation in LFT, Hepatitis B/C negative --> now sudden rise - ? related to new 1.9 cm mass near GB - ? autoimmune / high ESR - abnormal liver on CT - ? chronic disease / fibrosis - Resp failure - trach - s/p recent Chest tube and removal - Renal failure - aspiration risk --> s/p PEG - anemia - bradycardia - Poor prognosis Recommendations - check CT w/o contrast - check autoimmune markers - pending>>> neg JOLIE - check Iron panel - check AFP - GT care - water flushes - elevate HOB - monitor H&H - vent Subjective ROS Limited/Unobtainable: No Allergies: Coded Allergies: VANCOMYCIN (Unverified Allergy, Unknown, 08/02/19) Subjective s/p blood transfusion Objective Last 24 Hour Vital Signs Date Time Temp Pulse Resp B/P (MAP) Pulse Ox O2 Delivery O2 Flow Rate FiO2 09/23/19 08:25 Mechanical Ventilator Mechanical Ventilator Mechanical Ventilator Mechanical Ventilator 09/23/19 07:30 57 18 100 Mechanical Ventilator 30 60 18 30 09/23/19 05:37 145/76 09/23/19 05:08 62 18 30 09/23/19 04:00 97.4 63 18 145/76 (99) 100 09/23/19 04:00 30 09/23/19 04:00 Mechanical Ventilator Mechanical Ventilator Mechanical Ventilator Mechanical Ventilator 09/23/19 04:00 72 09/23/19 03:10 69 18 100 Mechanical Ventilator 30 64 18 30 09/23/19 00:43 62 19 30 09/23/19 00:12 151/78 09/23/19 00:00 97.2 60 18 151/68 (95) 100 09/23/19 00:00 Mechanical Ventilator Mechanical Ventilator Mechanical Ventilator Mechanical Ventilator 09/22/19 23:43 59 18 100 Mechanical Ventilator 30 64 18 30 09/22/19 21:47 186/88 09/22/19 21:13 80 19 30 09/22/19 20:00 72 09/22/19 20:00 Mechanical Ventilator Mechanical Ventilator Mechanical Ventilator Mechanical Ventilator 09/22/19 20:00 97.0 74 18 186/88 (120) 100 09/22/19 20:00 30 09/22/19 19:54 72 19 100 Mechanical Ventilator 30 75 19 30 09/22/19 18:30 157/88 09/22/19 17:15 67 18 30 09/22/19 16:00 69 09/22/19 16:00 Mechanical Ventilator Mechanical Ventilator Mechanical Ventilator Mechanical Ventilator 09/22/19 16:00 30 09/22/19 16:00 97.0 72 18 157/88 (111) 100 09/22/19 15:38 68 21 100 Mechanical Ventilator 30 66 18 100 09/22/19 15:25 66 19 30 09/22/19 13:25 65 18 30 09/22/19 12:52 155/92 09/22/19 12:00 63 09/22/19 12:00 30 09/22/19 12:00 Mechanical Ventilator Mechanical Ventilator Mechanical Ventilator Mechanical Ventilator 09/22/19 12:00 97.0 63 18 172/80 (110) 100 09/22/19 11:19 61 18 30 09/22/19 09:00 76 19 30 Intake and Output 09/22/19 09/23/19 19:00 07:00 Intake Total 350 ml 280 ml Balance 350 ml 280 ml Tube Feeding 350 ml 280 ml # Bowel Movements 7 4 Height (Feet): 5 Height (Inches): 4.00 Weight (Pounds): 112 General Appearance: no apparent distress EENT: normal ENT inspection Neck: supple Cardiovascular: normal rate Respiratory/Chest: decreased breath sounds Abdomen: normal bowel sounds, non tender, soft Extremities: non-tender Kenny Rudolph MD Sep 23, 2019 09:03
--- NOTE | 2019-09-23 10:22 | General Progress Note ---
Assessment/Plan Problem List: (1) Failure to thrive (0-17) ICD Codes: R62.51 - Failure to thrive (0-17) SNOMED: 708126684 (2) Hypertensive kidney disease ICD Codes: I12.9 - Hypertensive chronic kidney disease with stage 1 through stage 4 chronic kidney disease, or unspecified chronic kidney disease SNOMED: 65480030 (3) Pneumonia ICD Codes: J18.9 - Pneumonia, unspecified organism SNOMED: 645548903 Qualifiers: Qualified Codes: J18.9 - Pneumonia, unspecified organism (4) ESRD (end stage renal disease) ICD Codes: N18.6 - End stage renal disease SNOMED: 29148255 (5) Septic arthritis ICD Codes: M00.9 - Pyogenic arthritis, unspecified SNOMED: 147707524 (6) Thrombocytopenia ICD Codes: D69.6 - Thrombocytopenia, unspecified SNOMED: 832538630 (7) Hypotension ICD Codes: I95.9 - Hypotension, unspecified SNOMED: 16357393 Qualifiers: Qualified Codes: I95.3 - Hypotension of hemodialysis (8) Malnutrition ICD Codes: E46 - Unspecified protein-calorie malnutrition SNOMED: 27710453 Status: stable, not improved, unchanged, deteriorating Assessment/Plan: Continue vent support. Wean as able. Will discuss with pulmonary if patient could be weaned to trach collar.Suctioning and pulmonary toilet. Continue G-tube feedings. Monitor residuals Continue current blood pressure regimen with close monitoring of blood pressure. Hemodialysis with ultrafiltration per nephrology. Turn every 2 hours and good skin care. monitor labs/lfts Discharge planning in progress Subjective ROS Limited/Unobtainable: Yes Constitutional: Reports: malaise, weakness HEENT: Reports: no symptoms Cardiovascular: Reports: no symptoms Respiratory: Reports: no symptoms Gastrointestinal/Abdominal: Reports: difficulty swallowing Genitourinary: Reports: no symptoms Neurologic/Psychiatric: Reports: anxiety, pre-existing deficit Endocrine: Reports: no symptoms Hematologic/Lymphatic: Reports: anemia Allergies: Coded Allergies: VANCOMYCIN (Unverified Allergy, Unknown, 08/02/19) All Systems: reviewed and negative except above Subjective There were no overnight events. Patient remained stable on the ventilator. She occasionally opens her eyes. Tolerating feedings. Objective Last 24 Hour Vital Signs Date Time Temp Pulse Resp B/P (MAP) Pulse Ox O2 Delivery O2 Flow Rate FiO2 09/23/19 08:56 92.2 62 21 157/79 (105) 100 09/23/19 08:25 Mechanical Ventilator Mechanical Ventilator Mechanical Ventilator Mechanical Ventilator 09/23/19 08:00 30 09/23/19 07:30 57 18 100 Mechanical Ventilator 30 60 18 30 09/23/19 05:37 145/76 09/23/19 05:08 62 18 30 09/23/19 04:00 97.4 63 18 145/76 (99) 100 09/23/19 04:00 30 09/23/19 04:00 Mechanical Ventilator Mechanical Ventilator Mechanical Ventilator Mechanical Ventilator 09/23/19 04:00 72 09/23/19 03:10 69 18 100 Mechanical Ventilator 30 64 18 30 09/23/19 00:43 62 19 30 09/23/19 00:12 151/78 09/23/19 00:00 97.2 60 18 151/68 (95) 100 09/23/19 00:00 Mechanical Ventilator Mechanical Ventilator Mechanical Ventilator Mechanical Ventilator 09/22/19 23:43 59 18 100 Mechanical Ventilator 30 64 18 30 09/22/19 21:47 186/88 09/22/19 21:13 80 19 30 09/22/19 20:00 72 09/22/19 20:00 Mechanical Ventilator Mechanical Ventilator Mechanical Ventilator Mechanical Ventilator 09/22/19 20:00 97.0 74 18 186/88 (120) 100 09/22/19 20:00 30 09/22/19 19:54 72 19 100 Mechanical Ventilator 30 75 19 30 09/22/19 18:30 157/88 09/22/19 17:15 67 18 30 09/22/19 16:00 69 09/22/19 16:00 Mechanical Ventilator Mechanical Ventilator Mechanical Ventilator Mechanical Ventilator 09/22/19 16:00 30 09/22/19 16:00 97.0 72 18 157/88 (111) 100 09/22/19 15:38 68 21 100 Mechanical Ventilator 30 66 18 100 09/22/19 15:25 66 19 30 09/22/19 13:25 65 18 30 09/22/19 12:52 155/92 09/22/19 12:00 63 09/22/19 12:00 30 09/22/19 12:00 Mechanical Ventilator Mechanical Ventilator Mechanical Ventilator Mechanical Ventilator 09/22/19 12:00 97.0 63 18 172/80 (110) 100 09/22/19 11:19 61 18 30 Intake and Output 09/22/19 09/23/19 19:00 07:00 Intake Total 350 ml 280 ml Balance 350 ml 280 ml Tube Feeding 350 ml 280 ml # Bowel Movements 7 4 Height (Feet): 5 Height (Inches): 4.00 Weight (Pounds): 112 Objective General Appearance: WD/WN, awake. looks around. no distress. thin and frail Neck: supple +trach Cardiovascular: normal rate Respiratory/Chest: rhonchi - bilaterally Abdomen: normal bowel sounds, non tender, soft, no organomegaly Edema: no edema noted Arm (L), no edema noted Arm (R), no edema noted Leg (L), no edema noted Leg (R), no edema noted Pedal (L), no edema noted Pedal (R), no edema noted Generalized Neurologic: disoriented, aphasia Skin: +excoriations Nate Beltran MD Sep 23, 2019 10:22
--- NOTE | 2019-09-23 10:27 | Hematology/Onc Progress Note ---
Assessment/Plan Assessment/Plan # Thrombocytopenia ow THROMBOCYTOSIS - potential causes multifactorial, evaluate liver and viral etiologies to begin, in this case due to sepsis with septic shock also with cirrhosis and liver disease --> Hep panel and HIV ordered --> neg --> US abd to evaluate for cirrhosis and hsm ordered --> reviewed --> Peripheral smear ordered to evaluate for blasts /schistocytes --> none noted --> abx and other meds have been reviewed --> ok for ppx if plt >50k w/ either heparin or lovenox --> Transfuse if Plt < 20k and fever, or if Plt < 10k without fever --> okay for permacath change once plt better--> for 08/14 --> plt trend: 43-->83-->237k-->292-->341-->315-->388 -->444-->530-->252k-->344- >529->525k # Anemia of chronic disease due to underlying chronic medical issues, multifactorial v Gi bleed --> Anemia workup has been ordered, rule out gi bleed --> No evidence of hemolysis is noted, peripheral smear has been reviewed. --> Hgb goal >7. Transfuse prn. --> Epogen has been started --> HOLD OFF IRON ferritin is >1000 --> Medications have been reviewed --> low threshold for gi evaluation in case has occult + --> hgb 9-->6.7-->9.2 -->10.5-->10.6 -->10.7-->10-->10.5-->9.8-->10.4-->9.5--> 3.6-->9.6-->9.7-->10-->10.3-->11->9.9 --> blood tx: 08/11, 08/31 --> CT Chest r/o hemothorax --> does show confirmation of a large left hemothorax. Complete atelectasis of the left lower lobe and partial left upper lobe atelectasis demonstrated. Mild rightward shift of the heart and mediastinum. # Sepsis with shock. --> abx as per id, recs noted--> off abx --> pressors as needed # Healthcare-associated pneumonia. --> recs reviewed --> abx: jung/micafungin-->jung-->off --> 08/24 chest: moderate left pleural effusion # Severe protein-calorie malnutrition. --> nutritional support # End-stage renal disease --> had as renal hd --> with permacath # History of hypertension. --> per cards, now with Bradycardia. # Resp failure s/p vent/trach # HypoThyroid # Ngt feedings # Dvt ppx scd's The timing of this note does not necessarily reflect the time of the patient was seen. Greatly appreciate consultation. Subjective Constitutional: Denies: no symptoms, chills, fever, malaise, weakness, other HEENT: Denies: no symptoms, eye pain, blurred vision, tearing, double vision, ear pain, ear discharge, nose pain, nose congestion, throat pain, throat swelling, mouth pain, mouth swelling, other Cardiovascular: Denies: no symptoms, chest pain, edema, irregular heart rate, lightheadedness, palpitations, syncope, other Respiratory: Denies: no symptoms, cough, shortness of breath, SOB with excertion, SOB at rest, sputum, wheezing, other Gastrointestinal/Abdominal: Denies: no symptoms, abdomen distended, abdominal pain, black stools, tarry stools, blood in stool, constipated, diarrhea, difficulty swallowing, nausea, poor appetite, poor fluid intake, rectal bleeding , vomiting, other Genitourinary: Denies: no symptoms, burning, discharge, frequency, flank pain, hematuria, incontinence, pain, urgency, other Neurologic/Psychiatric: Denies: no symptoms, anxiety, depressed, emotional problems, headache, numbness, paresthesia, pre-existing deficit, seizure, tingling, tremors, weakness, other Endocrine: Denies: no symptoms, excessive sweating, flushing, intolerance to cold, intolerance to heat, increased hunger, increased thirst, increased urine, unexplained weight gain, unexplained weight loss, other Hematologic/Lymphatic: Denies: no symptoms, anemia, easy bleeding, easy bruising, adenopathy, other Allergies: Coded Allergies: VANCOMYCIN (Unverified Allergy, Unknown, 08/02/19) Subjective 08/11: no bleeding or chills, labs reviewed, no major bleeding, plt less than 50k 08/12: icu, s/p blood, hgb improved to 9.2, 08/14: icu, pending consent for thora and permacath, labs reviewed 08/15: new permacath placed, no bleeding, for hd, plt much improved, started lovenox sq 08/16: ett to be adjusted, bp on high end, micafungin started, possible bronch 08/17: weaning as per pulm, no events otherwise, labs noted 08/18: no events no bleeding, remains confused on vent, for hd 08/20: icu, failed to wean, labs reviewed, jung 08/21: resting in bed, no overnight events, labs reviewed 08/22: awake, confused, restraints, no overnight events 08/23: no events, no bleeding, on ppi bid 08/24: icu, failed to wean, labs reviewed 08/25: no overnight events, us chest, restraints, afebrile 08/26 difficult in weaning, nad, seen by surg, pulm labs noted 08/27 awake on restraints, thoracentesis for am, labs reviewed 08/29 no bleeding, no night sweats, no major changes, on ppi bid 08/30 no major events, remains on vent, no bleeding, dw pcp 08/31 hgb dropped to 3.6, has been transfused with prbc, in icu, dw Rn, ct chest pend 09/01 no major events, no bleeding, labs noted, hgb remains low, hgb 9.6 09/03 lethargic, left chest tube dry/intact, off abx, vent 09/04 remains on a vent, synthroid, labs reviewed 09/05 awake and alert, no acute events, hgb 9.8, no new orders 09/06 no bleeding or chills, labs noted, no major events overnight, david rn 09/07 no events, no night sweats, no bleeding, no fc, remains agitated in the am 09/08 remains in the icu, trach was done, on vent, abx off, on epo 09/10 transferred to sdu, restraints, vent, labs reviewed 09/11 tube feeds have been ongoing, no f/c, labs reviewed 09/12 no events, no bleeding, no night sweats, hgb 10 4/1 tsh is improved, remains confused, hgb is 11, no bleeding 09/14 no events, no bleeding, labs noted, vitals stable 09/15 confused, no acute events, restraints, dc planning 09/17 no new changes, no recent labs, placement pending 09/18 no events, no bleeding, no night sweats, fevers 09/19 nonverbal, vent, elevated bp, off abx 09/20 labs reviewed, dw rn, no bleeding, meds reviewed 09/21 is a+o x 1, nonverbal, no bleeding, labs reviewed, no night sweats 09/22 no major events, no bleeding, no night sweats, no f/c, labs noted hgb 10.5 Objective Objective Current Medications Medications (Trade) Dose Ordered Sig/Javier Route PRN Reason Start Time Stop Time Status Last Admin Dose Admin Acetaminophen (Tylenol) 650 mg Q4H PRN GT Mild Pain/Temp > 100.5 09/03/19 07:00 10/03/19 06:59 09/20/19 01:54 Acetylcysteine (Mucomyst) 100 mg Q4HRT [facility] 08/31/19 19:00 11/29/19 18:59 09/23/19 07:15 Albuterol/ Ipratropium (Albuterol/ Ipratropium) 3 ml Q4HRT [facility] 09/22/19 15:00 12/09/19 14:59 09/23/19 07:15 Barium Sulfate (Readi-Cat 2) 450 ml NOW PRN ORAL Radiology Procedure 09/22/19 21:45 09/24/19 21:38 Chlorhexidine Gluconate (Nae-Hex 2%) 1 applic DAILY@1999 TOPIC 09/17/19 20:00 12/16/19 19:59 09/22/19 21:47 Clonidine HCl (Catapres Tab) 0.1 mg Q4H PRN ORAL For High Blood Pressure 09/22/19 21:00 12/21/19 20:59 09/22/19 21:47 Dextrose (Dextrose 50%) 25 ml Q30M PRN IV Hypoglycemia 09/02/19 06:15 12/01/19 06:14 09/04/19 12:11 Dextrose (Dextrose 50%) 50 ml Q30M PRN IV Hypoglycemia 09/02/19 06:15 12/01/19 06:14 Hydralazine HCl (Apresoline) 50 mg Q6HR NG 09/21/19 06:00 12/20/19 05:59 09/23/19 05:37 Levothyroxine Sodium (Synthroid) 125 mcg DAILY@0630 ORAL 09/22/19 06:30 10/22/19 06:29 09/23/19 05:36 Psyllium Hydrophilic Mucilloid (Metamucil) 1 pkt DAILY ORAL 09/22/19 15:00 10/22/19 14:59 09/22/19 16:19 Last 24 Hour Vital Signs Date Time Temp Pulse Resp B/P (MAP) Pulse Ox O2 Delivery O2 Flow Rate FiO2 09/23/19 09:50 100 09/23/19 09:50 61 18 30 09/23/19 08:56 92.2 62 21 157/79 (105) 100 09/23/19 08:25 Mechanical Ventilator Mechanical Ventilator Mechanical Ventilator Mechanical Ventilator 09/23/19 08:00 30 09/23/19 07:30 57 18 100 Mechanical Ventilator 30 60 18 30 09/23/19 05:37 145/76 09/23/19 05:08 62 18 30 09/23/19 04:00 97.4 63 18 145/76 (99) 100 09/23/19 04:00 30 09/23/19 04:00 Mechanical Ventilator Mechanical Ventilator Mechanical Ventilator Mechanical Ventilator 09/23/19 04:00 72 09/23/19 03:10 69 18 100 Mechanical Ventilator 30 64 18 30 09/23/19 00:43 62 19 30 09/23/19 00:12 151/78 09/23/19 00:00 97.2 60 18 151/68 (95) 100 09/23/19 00:00 Mechanical Ventilator Mechanical Ventilator Mechanical Ventilator Mechanical Ventilator 09/22/19 23:43 59 18 100 Mechanical Ventilator 30 64 18 30 09/22/19 21:47 186/88 09/22/19 21:13 80 19 30 09/22/19 20:00 72 09/22/19 20:00 Mechanical Ventilator Mechanical Ventilator Mechanical Ventilator Mechanical Ventilator 09/22/19 20:00 97.0 74 18 186/88 (120) 100 09/22/19 20:00 30 09/22/19 19:54 72 19 100 Mechanical Ventilator 30 75 19 30 09/22/19 18:30 157/88 09/22/19 17:15 67 18 30 09/22/19 16:00 69 09/22/19 16:00 Mechanical Ventilator Mechanical Ventilator Mechanical Ventilator Mechanical Ventilator 09/22/19 16:00 30 09/22/19 16:00 97.0 72 18 157/88 (111) 100 09/22/19 15:38 68 21 100 Mechanical Ventilator 30 66 18 100 09/22/19 15:25 66 19 30 09/22/19 13:25 65 18 30 09/22/19 12:52 155/92 09/22/19 12:00 63 09/22/19 12:00 30 09/22/19 12:00 Mechanical Ventilator Mechanical Ventilator Mechanical Ventilator Mechanical Ventilator 09/22/19 12:00 97.0 63 18 172/80 (110) 100 09/22/19 11:19 61 18 30 09/22/19 09:00 76 19 30 09/22/19 08:00 Mechanical Ventilator Mechanical Ventilator Mechanical Ventilator Mechanical Ventilator 09/22/19 08:00 64 09/22/19 08:00 30 09/22/19 08:00 97.0 71 18 155/92 (113) 100 09/22/19 07:40 69 19 30 09/22/19 06:21 157/67 09/22/19 04:47 62 18 30 09/22/19 04:00 30 09/22/19 04:00 97.5 69 19 149/77 (101) 99 09/22/19 04:00 Mechanical Ventilator Mechanical Ventilator Mechanical Ventilator Mechanical Ventilator 09/22/19 03:36 68 09/22/19 03:16 73 18 30 09/22/19 00:55 72 18 30 09/22/19 00:02 157/83 09/22/19 00:00 98.0 62 18 157/83 (107) 100 09/22/19 00:00 Mechanical Ventilator Mechanical Ventilator Mechanical Ventilator Mechanical Ventilator 09/21/19 23:48 72 17 100 Mechanical Ventilator 30 09/21/19 23:33 71 18 Mechanical Ventilator 30 30 09/21/19 23:25 75 09/21/19 21:25 77 19 30 09/21/19 20:02 74 18 100 Mechanical Ventilator 30 09/21/19 20:00 30 09/21/19 20:00 Mechanical Ventilator Mechanical Ventilator Mechanical Ventilator Mechanical Ventilator 09/21/19 20:00 97.0 69 18 147/96 (113) 100 09/21/19 19:47 71 18 Mechanical Ventilator 30 30 09/21/19 19:03 70 09/21/19 17:37 159/78 09/21/19 17:37 77 159/78 09/21/19 17:09 82 18 30 09/21/19 16:00 30 09/21/19 16:00 Mechanical Ventilator Mechanical Ventilator Mechanical Ventilator Mechanical Ventilator 09/21/19 16:00 97.0 77 18 159/78 (105) 100 09/21/19 16:00 68 09/21/19 14:47 66 18 100 Mechanical Ventilator 30 65 19 30 09/21/19 13:22 83 18 30 09/21/19 12:00 67 09/21/19 12:00 126/74 09/21/19 12:00 Mechanical Ventilator Mechanical Ventilator Mechanical Ventilator Mechanical Ventilator 09/21/19 12:00 97.2 60 18 126/74 (91) 100 09/21/19 12:00 30 09/21/19 11:29 72 18 100 Mechanical Ventilator 30 69 18 30 Intake and Output 09/22/19 09/23/19 19:00 07:00 Intake Total 350 ml 280 ml Balance 350 ml 280 ml Tube Feeding 350 ml 280 ml # Bowel Movements 7 4 Labs Test 09/20/19 11:00 09/21/19 06:06 09/22/19 06:15 Thyroid Stimulating Hormone (TSH) 7.468 uiU/mL (0.358-3.740) Free Thyroxine 1.54 NG/DL (0.76-1.46) White Blood Count 11.0 K/UL (4.8-10.8) 7.8 K/UL (4.8-10.8) Red Blood Count 3.75 M/UL (4.20-5.40) 3.60 M/UL (4.20-5.40) Hemoglobin 11.0 G/DL (12.0-16.0) 10.5 G/DL (12.0-16.0) Hematocrit 33.2 % (37.0-47.0) 32.0 % (37.0-47.0) Mean Corpuscular Volume 89 FL (80-99) 89 FL (80-99) Mean Corpuscular Hemoglobin 29.2 PG (27.0-31.0) 29.2 PG (27.0-31.0) Mean Corpuscular Hemoglobin Concent 33.0 G/DL (32.0-36.0) 32.9 G/DL (32.0-36.0) Red Cell Distribution Width 15.0 % (11.6-14.8) 15.2 % (11.6-14.8) Platelet Count 525 K/UL (150-450) 525 K/UL (150-450) Mean Platelet Volume 4.9 FL (6.5-10.1) 4.9 FL (6.5-10.1) Neutrophils (%) (Auto) 77.1 % (45.0-75.0) 71.9 % (45.0-75.0) Lymphocytes (%) (Auto) 17.6 % (20.0-45.0) 21.5 % (20.0-45.0) Monocytes (%) (Auto) 2.9 % (1.0-10.0) 3.6 % (1.0-10.0) Eosinophils (%) (Auto) 1.9 % (0.0-3.0) 2.0 % (0.0-3.0) Basophils (%) (Auto) 0.5 % (0.0-2.0) 1.0 % (0.0-2.0) Sodium Level 134 MMOL/L (136-145) 137 MMOL/L (136-145) Potassium Level 3.9 MMOL/L (3.5-5.1) 3.9 MMOL/L (3.5-5.1) Chloride Level 96 MMOL/L (98-107) 98 MMOL/L (98-107) Carbon Dioxide Level 28 MMOL/L (21-32) 29 MMOL/L (21-32) Anion Gap 10 mmol/L (5-15) 10 mmol/L (5-15) Blood Urea Nitrogen 103 mg/dL (7-18) 74 mg/dL (7-18) Creatinine 3.6 MG/DL (0.55-1.30) 2.8 MG/DL (0.55-1.30) Estimat Glomerular Filtration Rate 12.2 mL/min (>60) 16.3 mL/min (>60) Glucose Level 112 MG/DL (74-106) 88 MG/DL (74-106) Calcium Level 9.2 MG/DL (8.5-10.1) 9.1 MG/DL (8.5-10.1) Phosphorus Level 4.9 MG/DL (2.5-4.9) Total Bilirubin 0.5 MG/DL (0.2-1.0) 0.5 MG/DL (0.2-1.0) Aspartate Amino Transf (AST/SGOT) 853 U/L (15-37) 558 U/L (15-37) Alanine Aminotransferase (ALT/SGPT) 361 U/L (12-78) 323 U/L (12-78) Alkaline Phosphatase 340 U/L (46-116) 359 U/L (46-116) C-Reactive Protein, Quantitative 17.0 mg/dL (0.00-0.90) 15.8 mg/dL (0.00-0.90) Pro-B-Type Natriuretic Peptide > 41832 pg/mL (0-125) Total Protein 7.4 G/DL (6.4-8.2) 7.8 G/DL (6.4-8.2) Albumin 2.4 G/DL (3.4-5.0) 2.6 G/DL (3.4-5.0) Globulin 5.0 g/dL 5.2 g/dL Albumin/Globulin Ratio 0.5 (1.0-2.7) 0.5 (1.0-2.7) Erythrocyte Sedimentation Rate 101 MM/HR (0-30) Prothrombin Time 10.9 SEC (9.30-11.50) Prothromb Time International Ratio 1.0 (0.9-1.1) Activated Partial Thromboplast Time 35 SEC (23-33) Iron Level 46 ug/dL (50-175) Total Iron Binding Capacity 65 ug/dL (250-450) Percent Iron Saturation 71 % (15-50) Unsaturated Iron Binding 19 ug/dL (112-346) Ferritin 744 NG/ML (8-388) Total Creatine Kinase 49 U/L (26-308) Amylase Level 49 U/L (25-115) Lipase 330 U/L (73-393) Alpha Fetoprotein <0.9 ng/mL (0.0-8.3) Anti-Nuclear Antibody Screen Negative (Negative) Height (Feet): 5 Height (Inches): 4.00 Weight (Pounds): 112 Objective Physical Exam vitals: reviewed gen: nad pulm: on trach+ / vent, decreased breath sounds left, chest tube+ cv: rrr, no gmr abd: sfot, nt, nd ++ gt ext: no cce Gio Rob MD Sep 23, 2019 10:27
--- NOTE | 2019-09-23 11:06 | Diagnostic Imaging Report ---
Indication: Some increase in liver function tests. Abnormal recent sonogram Technique: Spiral acquisitions obtained through the abdomen and pelvis. Patient given enteric contrast. No IV contrast utilized, reason not stated.. Multiplanar reconstructions were generated. Total dose length product 148 mGycm. CTDIvol(s) 2.9 mGy. Dose reduction achieved using automated exposure control Comparison: 08/05/2019 Findings: Patient is extremely edematous. This limits soft tissue contrast resolution, as does the lack of IV contrast administration. There a few colonic diverticula. No definite diverticulitis, although this is impossible to exclude given the soft tissue edema which could easily obscure any inflammatory process. Ingested contrast has traversed through most but not all of the small bowel, does not quite reach the terminal ileum. No small bowel distention or small bowel wall thickening is evident, however. There is a gastrostomy in good position. There is a small amount of free intraperitoneal fluid demonstrated. No free intraperitoneal gas. No obvious fluid collections although again this would be impossible to exclude given how edematous the soft tissues are. The appendix is not visualized The lack of IV contrast limits assessment of the solid organs. No abnormality seen in the liver that would correspond to the small pericholecystic collection demonstrated on recent sonogram. There is a large capsular calcification in posterior segment 7 again demonstrated. The gallbladder is unremarkable. No biliary ductal dilatation. The pancreas is barely at all visible due to the soft tissue edema. The spleen is unremarkable. The adrenals are essentially invisible. The kidneys are barely visible, atrophic. No gross retroperitoneal or mesenteric mass or adenopathy. No pelvic mass or adenopathy. Interim placement of a right groin temporary dialysis catheter, tip of which is in the mid superior vena cava. There is a Marroquin catheter within the bladder. Gas within the bladder lumen is presumably related to such. Included lung bases demonstrate a left pleural effusion and atelectasis of most of the left lower lobe. There is a trace right pleural effusion. A few groundglass and crazy paving opacities are seen in the right middle lobe. There is atelectasis are seen in the right lower lobe. The left pleural effusion and previously reported left pneumothorax are decreased in extent from prior chest CT of 09/01/2019. Some crazy paving opacities in the right middle lobe are increased. Right pleural effusion and associated atelectasis appear slightly decreased. There is some dense consolidation in the perihilar left lower lobe which is somewhat decreased from the prior The bones demonstrate compression fracture deformity of the L2 and possibly the L3 vertebral bodies and severe irregularity of the intervening endplates. Degenerative spondylosis changes are seen elsewhere. Impression: Very limited exam, due to severe soft tissue edema Anasarca, with as mentioned above diffuse edema of the soft tissues, trace ascites, and bilateral pleural effusions No hepatic abnormality to correlate with suspected small pericholecystic lesion in the liver described on recent sonogram. The lesion may be occult on noncontrast CT, may have been artifactual or may have resolved in the interim. Consider repeat sonography in a few days to assess progression No definite acute abdominal process otherwise Improved but still sizable left pleural effusion with minimal residual hemoperitoneum since prior CT scan of 09/01/2019. There is near complete atelectasis of the left lower lobe. There is a small right pleural effusion with atelectatic changes of the right lower lobe and right perihilar dense consolidation. These appear improved since a prior CT of 09/01/2019 Increased crazy paving type opacity within the right middle lobe since previous August [address], may reflect an area of increasing infiltrate, versus focal edema. There is also some dense consolidation of the perihilar right lower lobe which is improved since the previous August 31 CT Right groin temporary dialysis catheter in good position Atrophic kidneys, consistent with known history of chronic renal disease L2 compression fracture deformity, and advanced degenerative changes of the L2-L3 disc. Similar to prior study Marroquin catheter Other findings as noted, including hepatic capsular calcification The CT scanner at [facility] is accredited by the [employer] and the scans are performed using protocols designed to limit radiation exposure to as low as reasonably achievable to attain images of sufficient resolution adequate for diagnostic evaluation.
[2019-09-23] MEDS: HydrALAZINE 50mg tab NG SCH ×2 (12:13→17:18)
--- NOTE | 2019-09-23 13:24 | Nephrology Progress Note ---
Assessment/Plan Problem List: (1) ESRD (end stage renal disease) on dialysis (2) Malnutrition (3) Anemia in CKD (chronic kidney disease) (4) Hypotension (5) Thrombocytopenia (6) Sepsis Assessment: klebsiella in blood Assessment -Early sepsis with shock. -Healthcare-associated pneumonia. -Severe protein-calorie malnutrition. -Thrombocytopenia. - End-stage renal disease. - History of hypertension. - Bradycardia. - HypoThyroid Plan Check labs in a.m. Liver enzymes rising Tracheostomy September 07 Last dialysis September 16, next done September 20 Chest tube on the left side was put in on September 01 was discontinued September 07 Patient transfused 3 units of packed RBCs for low hemoglobin Remains full code Blood pressure fluctuating, will start hydralazine via NG tube for blood pressure Magnesium and potassium supplement intravenously as needed Patient underwent PEG placement August 16 patient remains intubated on ventilator Discussed with RN Aim to wean from ventilator or consider tracheostomy Permacath was removed on August 12 Dialysis 08/11 Transfusion as needed Patient had hematemesis meds IV as possible Surveillance blood cultures tomorrow Plan to put the permacath back in on Thursday if cultures are negative keep BP and BS in check Inflammatory markers per orders Subjective ROS Limited/Unobtainable: Yes Objective Objective Last 24 Hour Vital Signs Date Time Temp Pulse Resp B/P (MAP) Pulse Ox O2 Delivery O2 Flow Rate FiO2 09/23/19 12:13 156/97 09/23/19 12:00 93.1 52 18 156/97 (116) 100 09/23/19 12:00 30 09/23/19 12:00 Mechanical Ventilator Mechanical Ventilator Mechanical Ventilator Mechanical Ventilator 09/23/19 11:51 54 09/23/19 11:30 53 18 100 Mechanical Ventilator 30 55 18 30 09/23/19 09:50 100 09/23/19 09:50 61 18 30 09/23/19 08:56 92.2 62 21 157/79 (105) 100 09/23/19 08:25 Mechanical Ventilator Mechanical Ventilator Mechanical Ventilator Mechanical Ventilator 09/23/19 08:00 30 09/23/19 07:44 56 09/23/19 07:30 57 18 100 Mechanical Ventilator 30 60 18 30 09/23/19 05:37 145/76 09/23/19 05:08 62 18 30 09/23/19 04:00 97.4 63 18 145/76 (99) 100 09/23/19 04:00 30 09/23/19 04:00 Mechanical Ventilator Mechanical Ventilator Mechanical Ventilator Mechanical Ventilator 09/23/19 04:00 72 09/23/19 03:10 69 18 100 Mechanical Ventilator 30 64 18 30 09/23/19 00:43 62 19 30 09/23/19 00:12 151/78 09/23/19 00:00 97.2 60 18 151/68 (95) 100 09/23/19 00:00 Mechanical Ventilator Mechanical Ventilator Mechanical Ventilator Mechanical Ventilator 09/22/19 23:43 59 18 100 Mechanical Ventilator 30 64 18 30 09/22/19 21:47 186/88 09/22/19 21:13 80 19 30 09/22/19 20:00 72 09/22/19 20:00 Mechanical Ventilator Mechanical Ventilator Mechanical Ventilator Mechanical Ventilator 09/22/19 20:00 97.0 74 18 186/88 (120) 100 09/22/19 20:00 30 09/22/19 19:54 72 19 100 Mechanical Ventilator 30 75 19 30 09/22/19 18:30 157/88 09/22/19 17:15 67 18 30 09/22/19 16:00 69 09/22/19 16:00 Mechanical Ventilator Mechanical Ventilator Mechanical Ventilator Mechanical Ventilator 09/22/19 16:00 30 09/22/19 16:00 97.0 72 18 157/88 (111) 100 09/22/19 15:38 68 21 100 Mechanical Ventilator 30 66 18 100 09/22/19 15:25 66 19 30 09/22/19 13:25 65 18 30 Intake and Output 09/22/19 09/23/19 19:00 07:00 Intake Total 350 ml 280 ml Balance 350 ml 280 ml Tube Feeding 350 ml 280 ml # Bowel Movements 7 4 No labs drawn today Height (Feet): 5 Height (Inches): 4.00 Weight (Pounds): 112 General Appearance: no apparent distress EENT: other - Trached and vented Cardiovascular: bradycardia Respiratory/Chest: decreased breath sounds Abdomen: soft, other - PEG in place Objective no change William Blackwood MD Sep 23, 2019 13:24
--- NOTE | 2019-09-23 14:12 | Infectious Diseases Prog Note ---
Assessment/Plan Assessment/Plan antibiotics : none A 1. jarad albicans fungemia s/p rx 2. right shoulder septic arthritis with staph aureus s/p rx 3. pleural effusion 4. thrombocytopenia resolved 7. diabetes mellitus 8. hypertension 9. respiratory failure P 1. observe off antibiotics Subjective ROS Limited/Unobtainable: Yes Allergies: Coded Allergies: VANCOMYCIN (Unverified Allergy, Unknown, 08/02/19) Objective Vital Signs Last 24 Hour Vital Signs Date Time Temp Pulse Resp B/P (MAP) Pulse Ox O2 Delivery O2 Flow Rate FiO2 09/23/19 13:41 54 18 100 Mechanical Ventilator 30 55 18 30 09/23/19 12:13 156/97 09/23/19 12:00 93.1 52 18 156/97 (116) 100 09/23/19 12:00 30 09/23/19 12:00 Mechanical Ventilator Mechanical Ventilator Mechanical Ventilator Mechanical Ventilator 09/23/19 11:51 54 09/23/19 11:30 53 18 100 Mechanical Ventilator 30 55 18 30 09/23/19 09:50 100 09/23/19 09:50 61 18 30 09/23/19 08:56 92.2 62 21 157/79 (105) 100 09/23/19 08:25 Mechanical Ventilator Mechanical Ventilator Mechanical Ventilator Mechanical Ventilator 09/23/19 08:00 30 09/23/19 07:44 56 09/23/19 07:30 57 18 100 Mechanical Ventilator 30 60 18 30 09/23/19 05:37 145/76 09/23/19 05:08 62 18 30 09/23/19 04:00 97.4 63 18 145/76 (99) 100 09/23/19 04:00 30 09/23/19 04:00 Mechanical Ventilator Mechanical Ventilator Mechanical Ventilator Mechanical Ventilator 09/23/19 04:00 72 09/23/19 03:10 69 18 100 Mechanical Ventilator 30 64 18 30 09/23/19 00:43 62 19 30 09/23/19 00:12 151/78 09/23/19 00:00 97.2 60 18 151/68 (95) 100 09/23/19 00:00 Mechanical Ventilator Mechanical Ventilator Mechanical Ventilator Mechanical Ventilator 09/22/19 23:43 59 18 100 Mechanical Ventilator 30 64 18 30 09/22/19 21:47 186/88 09/22/19 21:13 80 19 30 09/22/19 20:00 72 09/22/19 20:00 Mechanical Ventilator Mechanical Ventilator Mechanical Ventilator Mechanical Ventilator 09/22/19 20:00 97.0 74 18 186/88 (120) 100 09/22/19 20:00 30 09/22/19 19:54 72 19 100 Mechanical Ventilator 30 75 19 30 09/22/19 18:30 157/88 09/22/19 17:15 67 18 30 09/22/19 16:00 69 09/22/19 16:00 Mechanical Ventilator Mechanical Ventilator Mechanical Ventilator Mechanical Ventilator 09/22/19 16:00 30 09/22/19 16:00 97.0 72 18 157/88 (111) 100 09/22/19 15:38 68 21 100 Mechanical Ventilator 30 66 18 100 09/22/19 15:25 66 19 30 Height (Feet): 5 Height (Inches): 4.00 Weight (Pounds): 112 HEENT: status post trach Respiratory/Chest: lungs clear Cardiovascular: normal rate, regular rhythm, no gallop/murmur Abdomen: soft, non tender, other - Gt Extremities: no edema, other - right groin catheter Current Medications Medications (Trade) Dose Ordered Sig/Jvaier Route PRN Reason Start Time Stop Time Status Last Admin Dose Admin Acetaminophen (Tylenol) 650 mg Q4H PRN GT Mild Pain/Temp > 100.5 09/03/19 07:00 10/03/19 06:59 09/20/19 01:54 Acetylcysteine (Mucomyst) 100 mg Q4HRT [facility] 08/31/19 19:00 11/29/19 18:59 09/23/19 11:15 Albuterol/ Ipratropium (Albuterol/ Ipratropium) 3 ml Q4HRT [facility] 09/22/19 15:00 12/09/19 14:59 09/23/19 11:15 Barium Sulfate (Readi-Cat 2) 450 ml NOW PRN ORAL Radiology Procedure 09/22/19 21:45 09/24/19 21:38 Chlorhexidine Gluconate (Nae-Hex 2%) 1 applic DAILY@2000 TOPIC 09/17/19 20:00 12/16/19 19:59 09/22/19 21:47 Clonidine HCl (Catapres Tab) 0.1 mg Q4H PRN ORAL For High Blood Pressure 09/22/19 21:00 7/8/20 20:59 09/22/19 21:47 Dextrose (Dextrose 50%) 25 ml Q30M PRN IV Hypoglycemia 09/02/19 06:15 12/01/19 06:14 09/04/19 12:11 Dextrose (Dextrose 50%) 50 ml Q30M PRN IV Hypoglycemia 09/02/19 06:15 12/01/19 06:14 Hydralazine HCl (Apresoline) 50 mg Q6HR NG 09/23/19 12:00 12/22/19 11:59 09/23/19 12:13 Levothyroxine Sodium (Synthroid) 125 mcg DAILY@0630 ORAL 09/22/19 06:30 10/22/19 06:29 09/23/19 05:36 Psyllium Hydrophilic Mucilloid (Metamucil) 1 pkt DAILY ORAL 09/22/19 15:00 10/22/19 14:59 09/22/19 16:19 Melissa Solares MD Sep 23, 2019 14:12
--- NOTE | 2019-09-23 15:47 | Surgery Progress Note ---
Surgery Progress Note Subjective Procedure Performed 1. tracheostomy 2 removal of left tube thoracostomy Additional Comments CT noted exam stable ill appearing overall labs stable Objective Last 24 Hour Vital Signs Date Time Temp Pulse Resp B/P (MAP) Pulse Ox O2 Delivery O2 Flow Rate FiO2 09/23/19 13:41 54 18 100 Mechanical Ventilator 30 55 18 30 09/23/19 12:13 156/97 09/23/19 12:00 93.1 52 18 156/97 (116) 100 09/23/19 12:00 30 09/23/19 12:00 Mechanical Ventilator Mechanical Ventilator Mechanical Ventilator Mechanical Ventilator 09/23/19 11:51 54 09/23/19 11:30 53 18 100 Mechanical Ventilator 30 55 18 30 09/23/19 09:50 100 09/23/19 09:50 61 18 30 09/23/19 08:56 92.2 62 21 157/79 (105) 100 09/23/19 08:25 Mechanical Ventilator Mechanical Ventilator Mechanical Ventilator Mechanical Ventilator 09/23/19 08:00 30 09/23/19 07:44 56 09/23/19 07:30 57 18 100 Mechanical Ventilator 30 60 18 30 09/23/19 05:37 145/76 09/23/19 05:08 62 18 30 09/23/19 04:00 97.4 63 18 145/76 (99) 100 09/23/19 04:00 30 09/23/19 04:00 Mechanical Ventilator Mechanical Ventilator Mechanical Ventilator Mechanical Ventilator 09/23/19 04:00 72 09/23/19 03:10 69 18 100 Mechanical Ventilator 30 64 18 30 09/23/19 00:43 62 19 30 09/23/19 00:12 151/78 09/23/19 00:00 97.2 60 18 151/68 (95) 100 09/23/19 00:00 Mechanical Ventilator Mechanical Ventilator Mechanical Ventilator Mechanical Ventilator 09/22/19 23:43 59 18 100 Mechanical Ventilator 30 64 18 30 09/22/19 21:47 186/88 09/22/19 21:13 80 19 30 09/22/19 20:00 72 09/22/19 20:00 Mechanical Ventilator Mechanical Ventilator Mechanical Ventilator Mechanical Ventilator 09/22/19 20:00 97.0 74 18 186/88 (120) 100 09/22/19 20:00 30 09/22/19 19:54 72 19 100 Mechanical Ventilator 30 75 19 30 09/22/19 18:30 157/88 09/22/19 17:15 67 18 30 09/22/19 16:00 69 09/22/19 16:00 Mechanical Ventilator Mechanical Ventilator Mechanical Ventilator Mechanical Ventilator 09/22/19 16:00 30 09/22/19 16:00 97.0 72 18 157/88 (111) 100 I&O Intake and Output 09/22/19 09/23/19 19:00 07:00 Intake Total 350 ml 280 ml Balance 350 ml 280 ml Tube Feeding 350 ml 280 ml # Bowel Movements 7 4 Dressing: saturated Wound: clean, other Drains: other Cardiovascular: RSR Respiratory: decreased breath sounds Abdomen: soft, non-tender, present bowel sounds Extremities: no edema, no tenderness, no cyanosis Assessment Post-op Diagnosis same Plan Problems: (1) Malnutrition Assessment & Plan: DAILY ESTIMATED NEEDS: Needs based on ESRD+ HD, underweight, wound/ 39.5kg 35-40 kcals/kg 8885-7387 total kcals 1.25-1.8 g protein/kg 49-71 g total protein 20-22 mL/kg 790-869 total fluid mLs NUTRITION DIAGNOSIS: * Increased kcal and protein needs r/t underweight status, HD needs, wuond healing as evidenced by pt is underweight per guidelines, ESRD, on HD, admitted non-blanching erythema wounds @ BL heels and sacrum * Swallowing difficulty R/T dysphagia as evidenced by JUNIOR BUSINESS ANALYST recommends temporary nonoral feeding at this time, s/p NGT insertion, on NGT feeding-> now s/p self removal, NPO. CURRENT TF:NPO PO DIET RECOMMENDATIONS: WHEN SAFE FOR ORAL DIET -> renal/ texture per JUNIOR BUSINESS ANALYST ENTERAL NUTRITION RECOMMENDATIONS: W/ GI access: Nepro @ 35ml/hr x 22 hrs to provide 770ml, 1386kcal, 62g prot, 560ml free water * W/ GI access, resume TF on Nepro * Initiate Nepro @ 15ml/hr x 6 hrs, advance 10ml q 4-6 hrs as tolerated to goal rate. * Hold 1 hour before and after Synthroid med * HOB over 30 degrees/ water flush per MD. ADDITIONAL RECOMMENDATIONS: 1) Calibrated bed scale wt for accurate CBW -> daily wt monitoring Per HD record: dry wt on 07/30=39.5kg (87lbs) 2) Wound care: (W/ GI access) add Nephorivte x 1 + Balta BID 3) Monitor NPO status: without GI access at this time, s/p pulling out NGT 4) Monitor for hypoglycemia while NPO 5) Monitor for continuity of HD (2) Septic arthritis Assessment & Plan: Pt presented on admission with generalized scaly rash . pt noted to be restless and scratching at skin. Bleeding from oral mucosa noted. Joint deformity noted to R shoulder. Surgical incision approximated with 11 sutures. Erythema but no exudate,or elevation in skin temp at site of incision. Historical incision R hip that is tunneled.Small amt seropurulent exudate noted. Periwound is erythematous,but no elevation in skin temp noted. No odor noted. Non-blanching erythema noted to sacrum. Perianal area is erythematous and excoriated. L heel is boggy with non-blanching erythema. R heel is soft with non-blanching erythema. No evidence of skin breakdown to all other bony prominences. Tx.plan: Cover R shoulder with Drsg and change daily and prn. Cleanse R hip wound with Saline. Apply Therahoney.Apply Cavilon Skin Barrier periwound. Cover with Optifoam drsg. Change every 3 days and prn. Apply Moisture Barrier Paste to perianal area and buttocks. Cover Sacrum with Optifoam drsg. Change every 3 days and prn. Apply Cavilon Skin Barrier to both heels. Cover each heel with Optifoam drsg. Change every 7 days and prn. APM/ELVIA Mattress overlay. Reposition at least every 2hours or as tolerated. Off-load heels with pillow. HD cath necessary HD as renal likely will need intubation 19 x 11 x 11 mm hypoechoic area in the liver adjacent to the gallbladder fossa. Although location is typical for area of focal sparing in a fatty liver, there are no findings to indicate fatty liver and this is a new finding since fairly recent previous exam. Therefore the possibility of a process such as small abscess should be considered. Atrophic echogenic kidneys Negative for gallstones or dilated bile ducts (3) Wound, open, hip or thigh with complication Assessment & Plan: slow healing will need nutritional optimization difficult ng tube peg when stable sutures removed from right shoulder comfortable wean vent may need trach (4) Abscess of right hip (5) possible septic arthritis (6) Renal failure (ARF), acute on chronic Assessment & Plan: cont HD will need tunneled cath placement okay to use fem line for now but will need change soon. line monitored and clean dressings going well (7) Pneumonia Assessment & Plan: intubated on vent support not tolerating weaning may need trach hemothorax likely after thoracentesis Chest CT noted Left chest tube placed With plan for trach chest tube can be considered but overall prognosis is very poor s/p trach left chest tub eout cxr noted and okay downgrade left pleural effusion dressings saturated will need to monitor. may need another chest tube as may not heal well on left side Anasarca, with as mentioned above diffuse edema of the soft tissues, trace ascites, and bilateral pleural effusions No hepatic abnormality to correlate with suspected small pericholecystic lesion in the liver described on recent sonogram. The lesion may be occult on noncontrast CT, may have been artifactual or may have resolved in the interim. Consider repeat sonography in a few days to assess progression No definite acute abdominal process otherwise Improved but still sizable left pleural effusion with minimal residual hemoperitoneum since prior CT scan of 09/01/2019. There is near complete atelectasis of the left lower lobe. There is a small right pleural effusion with atelectatic changes of the right lower lobe and right perihilar dense consolidation. These appear improved since a prior CT of 09/01/2019 Increased crazy paving type opacity within the right middle lobe since previous August [address], may reflect an area of increasing infiltrate, versus focal edema. There is also some dense consolidation of the perihilar right lower lobe which is improved since the previous August 31 CT Right groin temporary dialysis catheter in good position Atrophic kidneys, consistent with known history of chronic renal disease L2 compression fracture deformity, and advanced degenerative changes of the L2- L3 disc. Similar to prior study Marroquin catheter hold on repeat chest tube Camilo James Sep 23, 2019 15:47
[2019-09-24] VITALS: BP 158/83
[2019-09-24] MEDS: Albuterol/Ipratropium 3ml neb HHN SCH ×7 (00:13→22:39)
--- NOTE | 2019-09-24 01:00 | Progress Note ---
DATE: 09/23/2019 SUBJECTIVE: The patient has no change in her blood pressure parameters, remaining in the range of 140 to 155 systolic, heart rate in the 60s, monitored sinus. CAT scan of the abdomen does not reveal any liver abscess. There was significant tissue edema noted. The patient still temporary dialysis catheter in the right groin. PHYSICAL EXAMINATION: LUNGS: Bilateral breath sounds. HEART: Regular rhythm and rate. Normal S1, S2. ABDOMEN: Soft. EXTREMITIES: No edema. LABORATORY DATA: No new labs today. IMPRESSION: 1. Respiratory failure status post tracheostomy. 2. Sinus node disease with episodes of bradycardia exacerbated by hypothyroidism now stable. 3. Chronic diastolic congestive heart failure. 4. Transaminitis. 5. Iron-deficiency. 6. End-stage renal disease. PLAN: 1. Additional ultrafiltration. 2. Titrate antihypertensives. 3. Followup liver function studies. 4. Ventilator dependency at this time. 5. Continue thyroid replacement. 6. Avoid all drugs with negative chronotropic potential. Abel Stubbs M.D. DR: Lety JOB#: [id number] CC:
[2019-09-24] MEDS: HydrALAZINE 50mg tab NG SCH ×4 (01:51→17:51)
[2019-09-24] MEDS: Dyna-Hex 2% Top Sol 2oz TOPIC SCH ×2 (01:51→21:34)
[2019-09-24 04:00] VITALS: BP 148/74
[2019-09-24] MEDS: Levothyroxine 125mcg tab ORAL SCH (06:00)
[2019-09-24 06:45] LABS: BASOPHILS % (AUTO) 0.6 % (0.0-2.0); EOSINOPHILS % (AUTO) 0.6 % (0.0-3.0); HEMATOCRIT 30.5 % (37.0-47.0); HEMOGLOBIN 10.3 G/DL (12.0-16.0); LYMPHOCYTES % (AUTO) 25.7 % (20.0-45.0); MEAN CORPUSCULAR VOLUME 88 FL (80-99); MONOCYTES % (AUTO) 3.7 % (1.0-10.0); NEUTROPHILS % (AUTO) 69.5 % (45.0-75.0); PLATELET COUNT 475 K/UL (150-450); RED BLOOD COUNT 3.46 M/UL (4.20-5.40); RED CELL DISTRIBUTION WIDTH 14.8 % (11.6-14.8); WHITE BLOOD COUNT 10.7 K/UL (4.8-10.8)
--- NOTE | 2019-09-24 06:54 | General Progress Note ---
Assessment/Plan Status: stable, not improved, unchanged, deteriorating Assessment/Plan: Assessment - Severe ulcerative esophagitis - mild elevation in LFT, Hepatitis B/C negative --> now sudden rise - ? related to new 1.9 cm mass near GB - ? autoimmune / high ESR - abnormal liver on CT - ? chronic disease / fibrosis - Resp failure - trach - s/p recent Chest tube and removal - Renal failure - aspiration risk --> s/p PEG - anemia - bradycardia - Poor prognosis Recommendations - check CT w/o contrast - check autoimmune markers - pending>>> neg JOLIE - check Iron panel - check AFP - GT care - water flushes - elevate HOB - monitor H&H - vent Subjective ROS Limited/Unobtainable: No Allergies: Coded Allergies: VANCOMYCIN (Unverified Allergy, Unknown, 08/02/19) Subjective s/p blood transfusion Objective Last 24 Hour Vital Signs Date Time Temp Pulse Resp B/P (MAP) Pulse Ox O2 Delivery O2 Flow Rate FiO2 09/24/19 06:00 148/74 09/24/19 05:00 63 18 100 Mechanical Ventilator 30 63 20 30 09/24/19 04:04 66 09/24/19 04:00 97.8 68 18 148/74 (98) 98 09/24/19 04:00 Mechanical Ventilator Mechanical Ventilator Mechanical Ventilator Mechanical Ventilator 09/24/19 04:00 66 09/24/19 04:00 30 09/24/19 03:28 60 18 100 Mechanical Ventilator 30 63 20 30 09/24/19 01:52 158/69 09/24/19 01:51 158/69 09/24/19 00:36 71 22 100 Mechanical Ventilator 30 73 27 30 09/24/19 00:14 70 21 100 Mechanical Ventilator 30 68 18 100 09/24/19 00:00 30 09/24/19 00:00 Mechanical Ventilator Mechanical Ventilator Mechanical Ventilator Mechanical Ventilator 09/24/19 00:00 96.8 74 20 158/83 (108) 100 09/23/19 23:56 68 09/23/19 22:35 60 18 30 09/23/19 20:00 70 09/23/19 20:00 30 09/23/19 20:00 97.3 70 19 154/62 (92) 100 09/23/19 20:00 Mechanical Ventilator Mechanical Ventilator Mechanical Ventilator Mechanical Ventilator 09/23/19 19:30 61 18 100 Mechanical Ventilator 30 63 21 30 09/23/19 19:29 63 09/23/19 17:41 55 18 30 09/23/19 17:18 146/72 09/23/19 16:03 97.6 61 20 147/73 (97) 100 09/23/19 16:00 30 09/23/19 16:00 97.7 62 18 147/85 (105) 100 09/23/19 16:00 30 09/23/19 16:00 Mechanical Ventilator Mechanical Ventilator Mechanical Ventilator Mechanical Ventilator 09/23/19 16:00 59 09/23/19 14:55 56 18 100 Mechanical Ventilator 30 54 18 30 09/23/19 13:41 54 18 30 09/23/19 12:13 156/97 09/23/19 12:00 93.1 52 18 156/97 (116) 100 09/23/19 12:00 30 09/23/19 12:00 Mechanical Ventilator Mechanical Ventilator Mechanical Ventilator Mechanical Ventilator 09/23/19 11:51 54 09/23/19 11:30 53 18 100 Mechanical Ventilator 30 55 18 30 09/23/19 09:50 100 09/23/19 09:50 61 18 30 09/23/19 08:56 92.2 62 21 157/79 (105) 100 09/23/19 08:25 Mechanical Ventilator Mechanical Ventilator Mechanical Ventilator Mechanical Ventilator 09/23/19 08:00 30 09/23/19 07:44 56 09/23/19 07:30 57 18 100 Mechanical Ventilator 30 60 18 30 Intake and Output 09/23/19 09/24/19 19:00 07:00 Intake Total 745 ml 365 ml Output Total 200 ml 100 ml Balance 545 ml 265 ml Tube Feeding 245 ml 315 ml Other 500 ml 50 ml Output Urine Total 200 ml 100 ml # Bowel Movements 4 1 Laboratory Tests 09/24/19 05:48: White Blood Count [Pending], Red Blood Count [Pending], Hemoglobin [Pending], Hematocrit [Pending], Mean Corpuscular Volume [Pending], Mean Corpuscular Hemoglobin [Pending], Mean Corpuscular Hemoglobin Concent [Pending], Red Cell Distribution Width [Pending], Platelet Count [Pending], Mean Platelet Volume [ Pending], Neutrophils (%) (Auto) [Pending], Lymphocytes (%) (Auto) [Pending], Monocytes (%) (Auto) [Pending], Eosinophils (%) (Auto) [Pending], Basophils (%) (Auto) [Pending], Sodium Level [Pending], Potassium Level [Pending], Chloride Level [Pending], Carbon Dioxide Level [Pending], Blood Urea Nitrogen [Pending], Creatinine [Pending], Estimat Glomerular Filtration Rate [Pending], Glucose Level [Pending], Calcium Level [Pending], Phosphorus Level [Pending], Magnesium Level [Pending], Total Bilirubin [Pending], Aspartate Amino Transf (AST/SGOT) [ Pending], Alanine Aminotransferase (ALT/SGPT) [Pending], Alkaline Phosphatase [ Pending], C-Reactive Protein, Quantitative [Pending], Pro-B-Type Natriuretic Peptide [Pending], Total Protein [Pending], Albumin [Pending], Globulin [Pending ] Height (Feet): 5 Height (Inches): 4.00 Weight (Pounds): 112 General Appearance: no apparent distress EENT: normal ENT inspection Neck: supple Cardiovascular: normal rate Respiratory/Chest: decreased breath sounds Abdomen: normal bowel sounds, non tender, soft Extremities: non-tender Kenny Rudolph MD Sep 24, 2019 06:54
[2019-09-24 07:00] LABS: ALANINE AMINOTRANSFERASE 622 U/L (12-78); ALBUMIN 2.4 G/DL (3.4-5.0); ALBUMIN/GLOBULIN RATIO 0.5 (1.0-2.7); ALKALINE PHOSPHATASE 525 U/L (46-116); ANION GAP 14 mmol/L (5-15); BILIRUBIN,TOTAL 0.5 MG/DL (0.2-1.0); BLOOD UREA NITROGEN 100 mg/dL (7-18); CARBON DIOXIDE 24 MMOL/L (21-32); CHLORIDE 95 MMOL/L (98-107); CREATININE 3.3 MG/DL (0.55-1.30); POTASSIUM 4.3 MMOL/L (3.5-5.1); SODIUM 133 MMOL/L (136-145)
[2019-09-24 07:43] LABS: PHOSPHORUS 5.1 MG/DL (2.5-4.9)
[2019-09-24 08:00] VITALS: BP 156/77
[2019-09-24 09:34] LABS: ASPARTATE AMINO TRANSFERASE 1783 U/L (15-37)
[2019-09-24] MEDS: Metamucil Pkt ORAL SCH (10:02)
--- NOTE | 2019-09-24 10:25 | Critical Care Progress Note ---
Assessment/Plan Assessment/Plan respiratory failure hemoptysis resolved hypoxemia chronic renal failure toxic met encephalopathy severe protein calorie malnutrition cachexia left lung whiteout/collapse, improved with intubation s/p intubation anemia ? blood loss pulmonary edema with elevated BNP + pleural effusion worsening s/p CT placement and removal s/p trach hypernatremia PLAN trach care as is repeat imaging noted care noted and reviewed monitor for fluid retention; imaging next week reviewed care and continue to monitor wean unable with multiple co morbidities prognosis poor overall for change keep negative and monitor osmotic pressures fully dependent for now close follow up discussed elevated head and monitor ROM watch fluid status and keep negative nutrition and monitor residuals isolation reviewed off load as able and monitor skin exam ROM as able and monitor contractures prognosis poor for recovery will need LTAC impression, plan, and exam edited and reviewed in detail care discussed with optical glass sawyer - Subjective Interval Events: care noted on vent on HD ROS Limited/Unobtainable: Yes Condition: critical EKG Rhythm: Sinus Rhythm Residuals: minimal Tube Feeding Tolerated: yes I&O: Intake and Output 09/23/19 09/24/19 19:00 07:00 Intake Total 745 ml 365 ml Output Total 200 ml 100 ml Balance 545 ml 265 ml Tube Feeding 245 ml 315 ml Other 500 ml 50 ml Output Urine Total 200 ml 100 ml # Bowel Movements 4 1 Critical Care - Objective ET-Tube: 7.0 ET Position: 19 Last 24 Hour Vital Signs Date Time Temp Pulse Resp B/P (MAP) Pulse Ox O2 Delivery O2 Flow Rate FiO2 09/24/19 10:17 64 09/24/19 09:17 100 09/24/19 09:14 100 09/24/19 09:13 63 18 30 09/24/19 07:37 65 18 100 Mechanical Ventilator 30 67 18 30 09/24/19 06:00 148/74 09/24/19 05:00 63 18 100 Mechanical Ventilator 30 63 20 30 09/24/19 04:04 66 09/24/19 04:00 97.8 68 18 148/74 (98) 98 09/24/19 04:00 Mechanical Ventilator Mechanical Ventilator Mechanical Ventilator Mechanical Ventilator 09/24/19 04:00 66 09/24/19 04:00 30 09/24/19 03:28 60 18 100 Mechanical Ventilator 30 63 20 30 09/24/19 01:52 158/69 09/24/19 01:51 158/69 09/24/19 00:36 71 22 100 Mechanical Ventilator 30 73 27 30 09/24/19 00:14 70 21 100 Mechanical Ventilator 30 68 18 100 09/24/19 00:00 30 09/24/19 00:00 Mechanical Ventilator Mechanical Ventilator Mechanical Ventilator Mechanical Ventilator 09/24/19 00:00 96.8 74 20 158/83 (108) 100 09/23/19 23:56 68 09/23/19 22:35 60 18 30 09/23/19 20:00 70 09/23/19 20:00 30 09/23/19 20:00 97.3 70 19 154/62 (92) 100 09/23/19 20:00 Mechanical Ventilator Mechanical Ventilator Mechanical Ventilator Mechanical Ventilator 09/23/19 19:30 61 18 100 Mechanical Ventilator 30 63 21 30 09/23/19 19:29 63 09/23/19 17:41 55 18 30 09/23/19 17:18 146/72 09/23/19 16:03 97.6 61 20 147/73 (97) 100 09/23/19 16:00 30 09/23/19 16:00 97.7 62 18 147/85 (105) 100 09/23/19 16:00 30 09/23/19 16:00 Mechanical Ventilator Mechanical Ventilator Mechanical Ventilator Mechanical Ventilator 09/23/19 16:00 59 09/23/19 14:55 56 18 100 Mechanical Ventilator 30 54 18 30 09/23/19 13:41 54 18 30 09/23/19 12:13 156/97 09/23/19 12:00 93.1 52 18 156/97 (116) 100 09/23/19 12:00 30 09/23/19 12:00 Mechanical Ventilator Mechanical Ventilator Mechanical Ventilator Mechanical Ventilator 09/23/19 11:51 54 09/23/19 11:30 53 18 100 Mechanical Ventilator 30 55 18 30 Labs: Labs Test 09/22/19 06:15 09/24/19 05:48 White Blood Count 7.8 K/UL (4.8-10.8) 10.7 K/UL (4.8-10.8) Red Blood Count 3.60 M/UL (4.20-5.40) 3.46 M/UL (4.20-5.40) Hemoglobin 10.5 G/DL (12.0-16.0) 10.3 G/DL (12.0-16.0) Hematocrit 32.0 % (37.0-47.0) 30.5 % (37.0-47.0) Mean Corpuscular Volume 89 FL (80-99) 88 FL (80-99) Mean Corpuscular Hemoglobin 29.2 PG (27.0-31.0) 29.9 PG (27.0-31.0) Mean Corpuscular Hemoglobin Concent 32.9 G/DL (32.0-36.0) 33.9 G/DL (32.0-36.0) Red Cell Distribution Width 15.2 % (11.6-14.8) 14.8 % (11.6-14.8) Platelet Count 525 K/UL (150-450) 475 K/UL (150-450) Mean Platelet Volume 4.9 FL (6.5-10.1) 5.3 FL (6.5-10.1) Neutrophils (%) (Auto) 71.9 % (45.0-75.0) 69.5 % (45.0-75.0) Lymphocytes (%) (Auto) 21.5 % (20.0-45.0) 25.7 % (20.0-45.0) Monocytes (%) (Auto) 3.6 % (1.0-10.0) 3.7 % (1.0-10.0) Eosinophils (%) (Auto) 2.0 % (0.0-3.0) 0.6 % (0.0-3.0) Basophils (%) (Auto) 1.0 % (0.0-2.0) 0.6 % (0.0-2.0) Erythrocyte Sedimentation Rate 101 MM/HR (0-30) Prothrombin Time 10.9 SEC (9.30-11.50) Prothromb Time International Ratio 1.0 (0.9-1.1) Activated Partial Thromboplast Time 35 SEC (23-33) Sodium Level 137 MMOL/L (136-145) 133 MMOL/L (136-145) Potassium Level 3.9 MMOL/L (3.5-5.1) 4.3 MMOL/L (3.5-5.1) Chloride Level 98 MMOL/L (98-107) 95 MMOL/L (98-107) Carbon Dioxide Level 29 MMOL/L (21-32) 24 MMOL/L (21-32) Anion Gap 10 mmol/L (5-15) 14 mmol/L (5-15) Blood Urea Nitrogen 74 mg/dL (7-18) 100 mg/dL (7-18) Creatinine 2.8 MG/DL (0.55-1.30) 3.3 MG/DL (0.55-1.30) Estimat Glomerular Filtration Rate 16.3 mL/min (>60) 13.5 mL/min (>60) Glucose Level 88 MG/DL (74-106) 102 MG/DL (74-106) Calcium Level 9.1 MG/DL (8.5-10.1) 9.0 MG/DL (8.5-10.1) Iron Level 46 ug/dL (50-175) Total Iron Binding Capacity 65 ug/dL (250-450) Percent Iron Saturation 71 % (15-50) Unsaturated Iron Binding 19 ug/dL (112-346) Ferritin 744 NG/ML (8-388) Total Bilirubin 0.5 MG/DL (0.2-1.0) 0.5 MG/DL (0.2-1.0) Aspartate Amino Transf (AST/SGOT) 558 U/L (15-37) 1783 U/L (15-37) Alanine Aminotransferase (ALT/SGPT) 323 U/L (12-78) 622 U/L (12-78) Alkaline Phosphatase 359 U/L (46-116) 525 U/L (46-116) Total Creatine Kinase 49 U/L (26-308) C-Reactive Protein, Quantitative 15.8 mg/dL (0.00-0.90) 12.8 mg/dL (0.00-0.90) Total Protein 7.8 G/DL (6.4-8.2) 7.4 G/DL (6.4-8.2) Albumin 2.6 G/DL (3.4-5.0) 2.4 G/DL (3.4-5.0) Globulin 5.2 g/dL 5.0 g/dL Albumin/Globulin Ratio 0.5 (1.0-2.7) 0.5 (1.0-2.7) Amylase Level 49 U/L (25-115) Lipase 330 U/L (73-393) Alpha Fetoprotein <0.9 ng/mL (0.0-8.3) Anti-Nuclear Antibody Screen Negative (Negative) Phosphorus Level 5.1 MG/DL (2.5-4.9) Magnesium Level 2.8 MG/DL (1.8-2.4) Pro-B-Type Natriuretic Peptide > 24954 pg/mL (0-125) Objective: WDWN NAD trach in place reduced breath sounds left greater right; no rhonchi [id number] without MRG NABS nontender no HSM no CCE contractures feeding tube in place no distention reduced LOC and weak nonfocal cachectic reviewed and edited Accucheck: 89 Malcolm Cruz MD Sep 24, 2019 10:25
--- NOTE | 2019-09-24 11:02 | General Progress Note ---
Assessment/Plan Problem List: (1) Hypothyroid ICD Codes: E03.9 - Hypothyroidism, unspecified SNOMED: 44074129 (2) ESRD (end stage renal disease) on dialysis ICD Codes: N18.6 - End stage renal disease; Z99.2 - Dependence on renal dialysis SNOMED: 419632393 (3) Hypotension ICD Codes: I95.9 - Hypotension, unspecified SNOMED: 69971341 Qualifiers: Qualified Codes: I95.3 - Hypotension of hemodialysis (4) Pneumonia ICD Codes: J18.9 - Pneumonia, unspecified organism SNOMED: 040452554 Qualifiers: Qualified Codes: J18.9 - Pneumonia, unspecified organism (5) Diabetes mellitus ICD Codes: E11.9 - Type 2 diabetes mellitus without complications SNOMED: 83629383 Status: stable, not improved, unchanged, deteriorating Assessment/Plan: continue Levothyroxine tablet dose to 125 mcg daily repeat TSH, free 4 next week continue glucose monitoring without insulin coverage hypoglycemia protocol in order Subjective ROS Limited/Unobtainable: Yes Allergies: Coded Allergies: VANCOMYCIN (Unverified Allergy, Unknown, 08/02/19) Subjective events noted interval notes reviewed glucose values are stable Item Value Date Time Bedside Blood Glucose 89 mg/dl 09/23/19 1720 Bedside Blood Glucose 80 mg/dl 09/23/19 1200 Bedside Blood Glucose 99 mg/dl 09/23/19 0552 Objective Last 24 Hour Vital Signs Date Time Temp Pulse Resp B/P (MAP) Pulse Ox O2 Delivery O2 Flow Rate FiO2 09/24/19 10:17 64 09/24/19 09:17 100 09/24/19 09:14 100 09/24/19 09:13 63 18 30 09/24/19 07:37 65 18 100 Mechanical Ventilator 30 67 18 30 09/24/19 06:00 148/74 09/24/19 05:00 63 18 100 Mechanical Ventilator 30 63 20 30 09/24/19 04:04 66 09/24/19 04:00 97.8 68 18 148/74 (98) 98 09/24/19 04:00 Mechanical Ventilator Mechanical Ventilator Mechanical Ventilator Mechanical Ventilator 09/24/19 04:00 66 09/24/19 04:00 30 09/24/19 03:28 60 18 100 Mechanical Ventilator 30 63 20 30 09/24/19 01:52 158/69 09/24/19 01:51 158/69 09/24/19 00:36 71 22 100 Mechanical Ventilator 30 73 27 30 09/24/19 00:14 70 21 100 Mechanical Ventilator 30 68 18 100 09/24/19 00:00 30 09/24/19 00:00 Mechanical Ventilator Mechanical Ventilator Mechanical Ventilator Mechanical Ventilator 09/24/19 00:00 96.8 74 20 158/83 (108) 100 09/23/19 23:56 68 09/23/19 22:35 60 18 30 09/23/19 20:00 70 09/23/19 20:00 30 09/23/19 20:00 97.3 70 19 154/62 (92) 100 09/23/19 20:00 Mechanical Ventilator Mechanical Ventilator Mechanical Ventilator Mechanical Ventilator 09/23/19 19:30 61 18 100 Mechanical Ventilator 30 63 21 30 09/23/19 19:29 63 09/23/19 17:41 55 18 30 09/23/19 17:18 146/72 09/23/19 16:03 97.6 61 20 147/73 (97) 100 09/23/19 16:00 30 09/23/19 16:00 97.7 62 18 147/85 (105) 100 09/23/19 16:00 30 09/23/19 16:00 Mechanical Ventilator Mechanical Ventilator Mechanical Ventilator Mechanical Ventilator 09/23/19 16:00 59 09/23/19 14:55 56 18 100 Mechanical Ventilator 30 54 18 30 09/23/19 13:41 54 18 30 09/23/19 12:13 156/97 09/23/19 12:00 93.1 52 18 156/97 (116) 100 09/23/19 12:00 30 09/23/19 12:00 Mechanical Ventilator Mechanical Ventilator Mechanical Ventilator Mechanical Ventilator 09/23/19 11:51 54 09/23/19 11:30 53 18 100 Mechanical Ventilator 30 55 18 30 Intake and Output 09/23/19 09/24/19 19:00 07:00 Intake Total 745 ml 365 ml Output Total 200 ml 100 ml Balance 545 ml 265 ml Tube Feeding 245 ml 315 ml Other 500 ml 50 ml Output Urine Total 200 ml 100 ml # Bowel Movements 4 1 Laboratory Tests 09/24/19 05:48: White Blood Count 10.7, Red Blood Count 3.46L, Hemoglobin 10.3L, Hematocrit 30.5L, Mean Corpuscular Volume 88, Mean Corpuscular Hemoglobin 29.9, Mean Corpuscular Hemoglobin Concent 33.9, Red Cell Distribution Width 14.8, Platelet Count 475H, Mean Platelet Volume 5.3L, Neutrophils (%) (Auto) 69.5, Lymphocytes (%) (Auto) 25.7, Monocytes (%) (Auto) 3.7, Eosinophils (%) (Auto) 0.6, Basophils (%) (Auto) 0.6, Sodium Level 133L, Potassium Level 4.3, Chloride Level 95L, Carbon Dioxide Level 24, Anion Gap 14, Blood Urea Nitrogen 100H, Creatinine 3.3H, Estimat Glomerular Filtration Rate 13.5, Glucose Level 102, Calcium Level 9.0, Phosphorus Level 5.1H, Magnesium Level 2.8H, Total Bilirubin 0.5, Aspartate Amino Transf (AST/SGOT) 1783H, Alanine Aminotransferase (ALT/SGPT ) 622H, Alkaline Phosphatase 525H, C-Reactive Protein, Quantitative 12.8H, Pro-B -Type Natriuretic Peptide > 75682E, Total Protein 7.4, Albumin 2.4L, Globulin 5.0, Albumin/Globulin Ratio 0.5L Height (Feet): 5 Height (Inches): 4.00 Weight (Pounds): 112 General Appearance: no apparent distress Neck: normal alignment Cardiovascular: normal rate Respiratory/Chest: lungs clear Objective Current Medications Medications (Trade) Dose Ordered Sig/Javier Route PRN Reason Start Time Stop Time Status Last Admin Dose Admin Acetaminophen (Tylenol) 650 mg Q4H PRN GT Mild Pain/Temp > 100.5 09/03/19 07:00 10/03/19 06:59 09/20/19 01:54 Acetylcysteine (Mucomyst) 100 mg Q4HRT N 08/31/19 19:00 11/29/19 18:59 09/24/19 07:37 Albuterol/ Ipratropium (Albuterol/ Ipratropium) 3 ml Q4HRT N 09/22/19 15:00 12/09/19 14:59 09/24/19 07:37 Barium Sulfate (Readi-Cat 2) 450 ml NOW PRN ORAL Radiology Procedure 09/22/19 21:45 09/24/19 21:38 Chlorhexidine Gluconate (Nae-Hex 2%) 1 applic DAILY@1999 TOPIC 09/17/19 20:00 12/16/19 19:59 09/24/19 01:51 Clonidine HCl (Catapres Tab) 0.1 mg Q4H PRN ORAL For High Blood Pressure 09/22/19 21:00 12/21/19 20:59 09/24/19 01:52 Dextrose (Dextrose 50%) 25 ml Q30M PRN IV Hypoglycemia 09/02/19 06:15 12/01/19 06:14 09/04/19 12:11 Dextrose (Dextrose 50%) 50 ml Q30M PRN IV Hypoglycemia 09/02/19 06:15 12/01/19 06:14 Hydralazine HCl (Apresoline) 50 mg Q6HR NG 09/23/19 12:00 12/22/19 11:59 09/24/19 06:00 Levothyroxine Sodium (Synthroid) 125 mcg DAILY@0630 ORAL 09/22/19 06:30 10/22/19 06:29 09/24/19 06:00 Psyllium Hydrophilic Mucilloid (Metamucil) 1 pkt DAILY ORAL 09/22/19 15:00 10/22/19 14:59 09/24/19 10:02 Antonio Jacome MD Sep 24, 2019 11:02
[2019-09-24 12:00] VITALS: BP 186/84
--- NOTE | 2019-09-24 12:05 | Nephrology Progress Note ---
Assessment/Plan Problem List: (1) Liver enzyme elevation Assessment: Acute (2) ESRD (end stage renal disease) on dialysis (3) Malnutrition (4) Anemia in CKD (chronic kidney disease) (5) Hypotension (6) Thrombocytopenia (7) Sepsis Assessment: klebsiella in blood Assessment -Early sepsis with shock. -Healthcare-associated pneumonia. -Severe protein-calorie malnutrition. -Thrombocytopenia. - End-stage renal disease. - History of hypertension. - Bradycardia. - HypoThyroid Plan Check labs in a.m. Liver enzymes rising, hepatitis panel ordered Tracheostomy September 07 Last dialysis September 16, next done September 20 done Chest tube on the left side was put in on September 01 was discontinued September 07 Patient transfused 3 units of packed RBCs for low hemoglobin Remains full code Blood pressure fluctuating, will start hydralazine via NG tube for blood pressure Magnesium and potassium supplement intravenously as needed Patient underwent PEG placement August 16 patient remains intubated on ventilator Discussed with RN Aim to wean from ventilator or consider tracheostomy Permacath was removed on August 12 Dialysis 08/11 Transfusion as needed Patient had hematemesis meds IV as possible Surveillance blood cultures tomorrow Plan to put the permacath back in on Thursday if cultures are negative keep BP and BS in check Inflammatory markers per orders Subjective ROS Limited/Unobtainable: Yes Objective Objective Last 24 Hour Vital Signs Date Time Temp Pulse Resp B/P (MAP) Pulse Ox O2 Delivery O2 Flow Rate FiO2 09/24/19 11:29 58 18 100 Mechanical Ventilator 30 59 18 30 09/24/19 10:17 64 09/24/19 09:17 100 09/24/19 09:14 100 09/24/19 09:13 63 18 30 09/24/19 07:37 65 18 100 Mechanical Ventilator 30 67 18 30 09/24/19 06:00 148/74 09/24/19 05:00 63 18 100 Mechanical Ventilator 30 63 20 30 09/24/19 04:04 66 09/24/19 04:00 97.8 68 18 148/74 (98) 98 09/24/19 04:00 Mechanical Ventilator Mechanical Ventilator Mechanical Ventilator Mechanical Ventilator 09/24/19 04:00 66 09/24/19 04:00 30 09/24/19 03:28 60 18 100 Mechanical Ventilator 30 63 20 30 09/24/19 01:52 158/69 09/24/19 01:51 158/69 09/24/19 00:36 71 22 100 Mechanical Ventilator 30 73 27 30 09/24/19 00:14 70 21 100 Mechanical Ventilator 30 68 18 100 09/24/19 00:00 30 09/24/19 00:00 Mechanical Ventilator Mechanical Ventilator Mechanical Ventilator Mechanical Ventilator 09/24/19 00:00 96.8 74 20 158/83 (108) 100 09/23/19 23:56 68 09/23/19 22:35 60 18 30 09/23/19 20:00 70 09/23/19 20:00 30 09/23/19 20:00 97.3 70 19 154/62 (92) 100 09/23/19 20:00 Mechanical Ventilator Mechanical Ventilator Mechanical Ventilator Mechanical Ventilator 09/23/19 19:30 61 18 100 Mechanical Ventilator 30 63 21 30 09/23/19 19:29 63 09/23/19 17:41 55 18 30 09/23/19 17:18 146/72 09/23/19 16:03 97.6 61 20 147/73 (97) 100 09/23/19 16:00 30 09/23/19 16:00 97.7 62 18 147/85 (105) 100 09/23/19 16:00 30 09/23/19 16:00 Mechanical Ventilator Mechanical Ventilator Mechanical Ventilator Mechanical Ventilator 09/23/19 16:00 59 09/23/19 14:55 56 18 100 Mechanical Ventilator 30 54 18 30 09/23/19 13:41 54 18 30 09/23/19 12:13 156/97 Intake and Output 09/23/19 09/24/19 19:00 07:00 Intake Total 745 ml 365 ml Output Total 200 ml 100 ml Balance 545 ml 265 ml Tube Feeding 245 ml 315 ml Other 500 ml 50 ml Output Urine Total 200 ml 100 ml # Bowel Movements 4 1 Current Medications Medications (Trade) Dose Ordered Sig/Javier Route PRN Reason Start Time Stop Time Status Last Admin Dose Admin Acetaminophen (Tylenol) 650 mg Q4H PRN GT Mild Pain/Temp > 100.5 09/03/19 07:00 10/03/19 06:59 09/20/19 01:54 Acetylcysteine (Mucomyst) 100 mg Q4HRT HHN 08/31/19 19:00 11/29/19 18:59 09/24/19 11:29 Albuterol/ Ipratropium (Albuterol/ Ipratropium) 3 ml Q4HRT HHN 09/22/19 15:00 12/09/19 14:59 09/24/19 11:29 Barium Sulfate (Readi-Cat 2) 450 ml NOW PRN ORAL Radiology Procedure 09/22/19 21:45 09/24/19 21:38 Chlorhexidine Gluconate (Nae-Hex 2%) 1 applic DAILY@2000 TOPIC 09/17/19 20:00 12/16/19 19:59 09/24/19 01:51 Clonidine HCl (Catapres Tab) 0.1 mg Q4H PRN ORAL For High Blood Pressure 09/22/19 21:00 12/21/19 20:59 09/24/19 01:52 Dextrose (Dextrose 50%) 25 ml Q30M PRN IV Hypoglycemia 09/02/19 06:15 12/01/19 06:14 09/04/19 12:11 Dextrose (Dextrose 50%) 50 ml Q30M PRN IV Hypoglycemia 09/02/19 06:15 12/01/19 06:14 Hydralazine HCl (Apresoline) 50 mg Q6HR NG 09/23/19 12:00 12/22/19 11:59 09/24/19 06:00 Levothyroxine Sodium (Synthroid) 125 mcg DAILY@0630 ORAL 09/22/19 06:30 10/22/19 06:29 09/24/19 06:00 Psyllium Hydrophilic Mucilloid (Metamucil) 1 pkt DAILY ORAL 09/22/19 15:00 10/22/19 14:59 09/24/19 10:02 Laboratory Tests 09/24/19 05:48: White Blood Count 10.7, Red Blood Count 3.46L, Hemoglobin 10.3L, Hematocrit 30.5L, Mean Corpuscular Volume 88, Mean Corpuscular Hemoglobin 29.9, Mean Corpuscular Hemoglobin Concent 33.9, Red Cell Distribution Width 14.8, Platelet Count 475H, Mean Platelet Volume 5.3L, Neutrophils (%) (Auto) 69.5, Lymphocytes (%) (Auto) 25.7, Monocytes (%) (Auto) 3.7, Eosinophils (%) (Auto) 0.6, Basophils (%) (Auto) 0.6, Sodium Level 133L, Potassium Level 4.3, Chloride Level 95L, Carbon Dioxide Level 24, Anion Gap 14, Blood Urea Nitrogen 100H, Creatinine 3.3H, Estimat Glomerular Filtration Rate 13.5, Glucose Level 102, Calcium Level 9.0, Phosphorus Level 5.1H, Magnesium Level 2.8H, Total Bilirubin 0.5, Aspartate Amino Transf (AST/SGOT) 1783H, Alanine Aminotransferase (ALT/SGPT ) 622H, Alkaline Phosphatase 525H, C-Reactive Protein, Quantitative 12.8H, Pro-B -Type Natriuretic Peptide > 00514D, Total Protein 7.4, Albumin 2.4L, Globulin 5.0, Albumin/Globulin Ratio 0.5L Height (Feet): 5 Height (Inches): 4.00 Weight (Pounds): 112 General Appearance: no apparent distress Neck: other - Trached on vent Respiratory/Chest: decreased breath sounds - GTN Abdomen: other Objective no change William Blackwood MD Sep 24, 2019 12:05
--- NOTE | 2019-09-24 12:06 | Infectious Diseases Prog Note ---
Assessment/Plan Assessment/Plan antibiotics : none A 1. jarad albicans fungemia s/p rx 2. right shoulder septic arthritis with staph aureus s/p rx 3. pleural effusion 4. thrombocytopenia resolved 7. diabetes mellitus 8. hypertension 9. respiratory failure P 1. observe off antibiotics Subjective ROS Limited/Unobtainable: Yes Allergies: Coded Allergies: VANCOMYCIN (Unverified Allergy, Unknown, 08/02/19) Objective Vital Signs Last 24 Hour Vital Signs Date Time Temp Pulse Resp B/P (MAP) Pulse Ox O2 Delivery O2 Flow Rate FiO2 09/24/19 11:29 58 18 100 Mechanical Ventilator 30 59 18 30 09/24/19 10:17 64 09/24/19 09:17 100 09/24/19 09:14 100 09/24/19 09:13 63 18 30 09/24/19 07:37 65 18 100 Mechanical Ventilator 30 67 18 30 09/24/19 06:00 148/74 09/24/19 05:00 63 18 100 Mechanical Ventilator 30 63 20 30 09/24/19 04:04 66 09/24/19 04:00 97.8 68 18 148/74 (98) 98 09/24/19 04:00 Mechanical Ventilator Mechanical Ventilator Mechanical Ventilator Mechanical Ventilator 09/24/19 04:00 66 09/24/19 04:00 30 09/24/19 03:28 60 18 100 Mechanical Ventilator 30 63 20 30 09/24/19 01:52 158/69 09/24/19 01:51 158/69 09/24/19 00:36 71 22 100 Mechanical Ventilator 30 73 27 30 09/24/19 00:14 70 21 100 Mechanical Ventilator 30 68 18 100 09/24/19 00:00 30 09/24/19 00:00 Mechanical Ventilator Mechanical Ventilator Mechanical Ventilator Mechanical Ventilator 09/24/19 00:00 96.8 74 20 158/83 (108) 100 09/23/19 23:56 68 09/23/19 22:35 60 18 30 09/23/19 20:00 70 09/23/19 20:00 30 09/23/19 20:00 97.3 70 19 154/62 (92) 100 09/23/19 20:00 Mechanical Ventilator Mechanical Ventilator Mechanical Ventilator Mechanical Ventilator 09/23/19 19:30 61 18 100 Mechanical Ventilator 30 63 21 30 09/23/19 19:29 63 09/23/19 17:41 55 18 30 4/10/20 17:18 146/72 09/23/19 16:03 97.6 61 20 147/73 (97) 100 09/23/19 16:00 30 09/23/19 16:00 97.7 62 18 147/85 (105) 100 09/23/19 16:00 30 09/23/19 16:00 Mechanical Ventilator Mechanical Ventilator Mechanical Ventilator Mechanical Ventilator 09/23/19 16:00 59 09/23/19 14:55 56 18 100 Mechanical Ventilator 30 54 18 30 09/23/19 13:41 54 18 30 09/23/19 12:13 156/97 Height (Feet): 5 Height (Inches): 4.00 Weight (Pounds): 112 HEENT: status post trach Respiratory/Chest: lungs clear Cardiovascular: normal rate, regular rhythm, no gallop/murmur Abdomen: soft, non tender, other - GT Extremities: no edema, other - right groin catheter Laboratory Tests Test 09/24/19 05:48 White Blood Count 10.7 K/UL (4.8-10.8) Red Blood Count 3.46 M/UL (4.20-5.40) L Hemoglobin 10.3 G/DL (12.0-16.0) L Hematocrit 30.5 % (37.0-47.0) L Mean Corpuscular Volume 88 FL (80-99) Mean Corpuscular Hemoglobin 29.9 PG (27.0-31.0) Mean Corpuscular Hemoglobin Concent 33.9 G/DL (32.0-36.0) Red Cell Distribution Width 14.8 % (11.6-14.8) Platelet Count 475 K/UL (150-450) H Mean Platelet Volume 5.3 FL (6.5-10.1) L Neutrophils (%) (Auto) 69.5 % (45.0-75.0) Lymphocytes (%) (Auto) 25.7 % (20.0-45.0) Monocytes (%) (Auto) 3.7 % (1.0-10.0) Eosinophils (%) (Auto) 0.6 % (0.0-3.0) Basophils (%) (Auto) 0.6 % (0.0-2.0) Sodium Level 133 MMOL/L (136-145) L Potassium Level 4.3 MMOL/L (3.5-5.1) Chloride Level 95 MMOL/L (98-107) L Carbon Dioxide Level 24 MMOL/L (21-32) Anion Gap 14 mmol/L (5-15) Blood Urea Nitrogen 100 mg/dL (7-18) H Creatinine 3.3 MG/DL (0.55-1.30) H Estimat Glomerular Filtration Rate 13.5 mL/min (>60) Glucose Level 102 MG/DL (74-106) Calcium Level 9.0 MG/DL (8.5-10.1) Phosphorus Level 5.1 MG/DL (2.5-4.9) H Magnesium Level 2.8 MG/DL (1.8-2.4) H Total Bilirubin 0.5 MG/DL (0.2-1.0) Aspartate Amino Transf (AST/SGOT) 1783 U/L (15-37) H Alanine Aminotransferase (ALT/SGPT) 622 U/L (12-78) H Alkaline Phosphatase 525 U/L (46-116) H C-Reactive Protein, Quantitative 12.8 mg/dL (0.00-0.90) H Pro-B-Type Natriuretic Peptide > 66443 pg/mL (0-125) H Total Protein 7.4 G/DL (6.4-8.2) Albumin 2.4 G/DL (3.4-5.0) L Globulin 5.0 g/dL Albumin/Globulin Ratio 0.5 (1.0-2.7) L Current Medications Medications (Trade) Dose Ordered Sig/Javier Route PRN Reason Start Time Stop Time Status Last Admin Dose Admin Acetaminophen (Tylenol) 650 mg Q4H PRN GT Mild Pain/Temp > 100.5 09/03/19 07:00 10/03/19 06:59 09/20/19 01:54 Acetylcysteine (Mucomyst) 100 mg Q4HRT N 08/31/19 19:00 11/29/19 18:59 09/24/19 11:29 Albuterol/ Ipratropium (Albuterol/ Ipratropium) 3 ml Q4HRT N 09/22/19 15:00 12/09/19 14:59 09/24/19 11:29 Barium Sulfate (Readi-Cat 2) 450 ml NOW PRN ORAL Radiology Procedure 09/22/19 21:45 09/24/19 21:38 Chlorhexidine Gluconate (Nae-Hex 2%) 1 applic DAILY@1999 TOPIC 09/17/19 20:00 12/16/19 19:59 09/24/19 01:51 Clonidine HCl (Catapres Tab) 0.1 mg Q4H PRN ORAL For High Blood Pressure 09/22/19 21:00 12/21/19 20:59 09/24/19 01:52 Dextrose (Dextrose 50%) 25 ml Q30M PRN IV Hypoglycemia 09/02/19 06:15 12/01/19 06:14 09/04/19 12:11 Dextrose (Dextrose 50%) 50 ml Q30M PRN IV Hypoglycemia 09/02/19 06:15 12/01/19 06:14 Hydralazine HCl (Apresoline) 50 mg Q6HR NG 09/23/19 12:00 12/22/19 11:59 09/24/19 06:00 Levothyroxine Sodium (Synthroid) 125 mcg DAILY@06 ORAL 09/22/19 06:30 10/22/19 06:29 09/24/19 06:00 Psyllium Hydrophilic Mucilloid (Metamucil) 1 pkt DAILY ORAL 09/22/19 15:00 10/22/19 14:59 09/24/19 10:02 Melissa Solares MD Sep 24, 2019 12:06
--- NOTE | 2019-09-24 12:30 | General Progress Note ---
Assessment/Plan Problem List: (1) Failure to thrive (0-17) ICD Codes: R62.51 - Failure to thrive (0-17) SNOMED: 163690213 (2) Hypertensive kidney disease ICD Codes: I12.9 - Hypertensive chronic kidney disease with stage 1 through stage 4 chronic kidney disease, or unspecified chronic kidney disease SNOMED: 34833111 (3) Pneumonia ICD Codes: J18.9 - Pneumonia, unspecified organism SNOMED: 852934294 Qualifiers: Qualified Codes: J18.9 - Pneumonia, unspecified organism (4) ESRD (end stage renal disease) ICD Codes: N18.6 - End stage renal disease SNOMED: 37510062 (5) Septic arthritis ICD Codes: M00.9 - Pyogenic arthritis, unspecified SNOMED: 260548068 (6) Thrombocytopenia ICD Codes: D69.6 - Thrombocytopenia, unspecified SNOMED: 031817027 (7) Hypotension ICD Codes: I95.9 - Hypotension, unspecified SNOMED: 04758515 Qualifiers: Qualified Codes: I95.3 - Hypotension of hemodialysis (8) Malnutrition ICD Codes: E46 - Unspecified protein-calorie malnutrition SNOMED: 06586982 Status: stable, not improved, unchanged, deteriorating Assessment/Plan: Continue vent support. Wean as able. Will discuss with pulmonary if patient could be weaned to trach collar.Suctioning and pulmonary toilet. Continue G-tube feedings. Monitor residuals Continue current blood pressure regimen with close monitoring of blood pressure. Hemodialysis with ultrafiltration per nephrology. Turn every 2 hours and good skin care. monitor labs/lfts follow up ct hep panel Discharge planning in progress Subjective ROS Limited/Unobtainable: No Constitutional: Reports: malaise, weakness HEENT: Reports: no symptoms Cardiovascular: Reports: no symptoms Respiratory: Reports: shortness of breath, sputum Gastrointestinal/Abdominal: Reports: difficulty swallowing Genitourinary: Reports: no symptoms Neurologic/Psychiatric: Reports: pre-existing deficit Endocrine: Reports: no symptoms Hematologic/Lymphatic: Reports: anemia Allergies: Coded Allergies: VANCOMYCIN (Unverified Allergy, Unknown, 08/02/19) All Systems: reviewed and negative except above Subjective There were no overnight events. Patient remained stable on the ventilator. She occasionally opens her eyes. Tolerating feedings. LFTS trending up again. GI noted. Objective Last 24 Hour Vital Signs Date Time Temp Pulse Resp B/P (MAP) Pulse Ox O2 Delivery O2 Flow Rate FiO2 09/24/19 12:00 Mechanical Ventilator Mechanical Ventilator Mechanical Ventilator Mechanical Ventilator 09/24/19 12:00 98.6 58 18 186/84 (118) 98 09/24/19 12:00 30 09/24/19 11:29 58 18 100 Mechanical Ventilator 30 59 18 30 09/24/19 10:17 64 09/24/19 09:17 100 09/24/19 09:14 100 09/24/19 09:13 63 18 30 09/24/19 08:00 98.4 62 18 156/77 (103) 98 09/24/19 08:00 Mechanical Ventilator Mechanical Ventilator Mechanical Ventilator Mechanical Ventilator 09/24/19 08:00 30 09/24/19 07:37 65 18 100 Mechanical Ventilator 30 67 18 30 09/24/19 06:00 148/74 09/24/19 05:00 63 18 100 Mechanical Ventilator 30 63 20 30 09/24/19 04:04 66 09/24/19 04:00 97.8 68 18 148/74 (98) 98 09/24/19 04:00 Mechanical Ventilator Mechanical Ventilator Mechanical Ventilator Mechanical Ventilator 09/24/19 04:00 66 09/24/19 04:00 30 09/24/19 03:28 60 18 100 Mechanical Ventilator 30 63 20 30 09/24/19 01:52 158/69 09/24/19 01:51 158/69 09/24/19 00:36 71 22 100 Mechanical Ventilator 30 73 27 30 09/24/19 00:14 70 21 100 Mechanical Ventilator 30 68 18 100 09/24/19 00:00 30 09/24/19 00:00 Mechanical Ventilator Mechanical Ventilator Mechanical Ventilator Mechanical Ventilator 09/24/19 00:00 96.8 74 20 158/83 (108) 100 09/23/19 23:56 68 09/23/19 22:35 60 18 30 09/23/19 20:00 70 09/23/19 20:00 30 09/23/19 20:00 97.3 70 19 154/62 (92) 100 09/23/19 20:00 Mechanical Ventilator Mechanical Ventilator Mechanical Ventilator Mechanical Ventilator 09/23/19 19:30 61 18 100 Mechanical Ventilator 30 63 21 30 09/23/19 19:29 63 09/23/19 17:41 55 18 30 09/23/19 17:18 146/72 09/23/19 16:03 97.6 61 20 147/73 (97) 100 09/23/19 16:00 30 09/23/19 16:00 97.7 62 18 147/85 (105) 100 09/23/19 16:00 30 09/23/19 16:00 Mechanical Ventilator Mechanical Ventilator Mechanical Ventilator Mechanical Ventilator 09/23/19 16:00 59 09/23/19 14:55 56 18 100 Mechanical Ventilator 30 54 18 30 09/23/19 13:41 54 18 30 Intake and Output 09/23/19 09/24/19 19:00 07:00 Intake Total 745 ml 365 ml Output Total 200 ml 100 ml Balance 545 ml 265 ml Tube Feeding 245 ml 315 ml Other 500 ml 50 ml Output Urine Total 200 ml 100 ml # Bowel Movements 4 1 Laboratory Tests 09/24/19 05:48: White Blood Count 10.7, Red Blood Count 3.46L, Hemoglobin 10.3L, Hematocrit 30.5L, Mean Corpuscular Volume 88, Mean Corpuscular Hemoglobin 29.9, Mean Corpuscular Hemoglobin Concent 33.9, Red Cell Distribution Width 14.8, Platelet Count 475H, Mean Platelet Volume 5.3L, Neutrophils (%) (Auto) 69.5, Lymphocytes (%) (Auto) 25.7, Monocytes (%) (Auto) 3.7, Eosinophils (%) (Auto) 0.6, Basophils (%) (Auto) 0.6, Sodium Level 133L, Potassium Level 4.3, Chloride Level 95L, Carbon Dioxide Level 24, Anion Gap 14, Blood Urea Nitrogen 100H, Creatinine 3.3H, Estimat Glomerular Filtration Rate 13.5, Glucose Level 102, Calcium Level 9.0, Phosphorus Level 5.1H, Magnesium Level 2.8H, Total Bilirubin 0.5, Aspartate Amino Transf (AST/SGOT) 1783H, Alanine Aminotransferase (ALT/SGPT ) 622H, Alkaline Phosphatase 525H, C-Reactive Protein, Quantitative 12.8H, Pro-B -Type Natriuretic Peptide > 49699D, Total Protein 7.4, Albumin 2.4L, Globulin 5.0, Albumin/Globulin Ratio 0.5L Height (Feet): 5 Height (Inches): 4.00 Weight (Pounds): 112 Objective General Appearance: WD/WN, awake. looks around. no distress. thin and frail Neck: supple +trach Cardiovascular: normal rate Respiratory/Chest: rhonchi - bilaterally Abdomen: normal bowel sounds, non tender, soft, no organomegaly Edema: no edema noted Arm (L), no edema noted Arm (R), no edema noted Leg (L), no edema noted Leg (R), no edema noted Pedal (L), no edema noted Pedal (R), no edema noted Generalized Neurologic: disoriented, aphasia Skin: +excoriations Nate Beltran MD Sep 24, 2019 12:30
[2019-09-24] MEDS ORDERED: NS 275ml ONE (12:52)
[2019-09-24 16:00] VITALS: BP 171/85
--- NOTE | 2019-09-24 19:34 | Surgery Progress Note ---
Surgery Progress Note Subjective Procedure Performed 1. tracheostomy 2 removal of left tube thoracostomy Additional Comments no acute events stable Objective Last 24 Hour Vital Signs Date Time Temp Pulse Resp B/P (MAP) Pulse Ox O2 Delivery O2 Flow Rate FiO2 09/24/19 17:51 171/85 09/24/19 17:15 62 22 30 09/24/19 16:00 55 09/24/19 16:00 98.4 61 18 171/85 (113) 98 09/24/19 16:00 30 09/24/19 16:00 Mechanical Ventilator Mechanical Ventilator Mechanical Ventilator Mechanical Ventilator 09/24/19 15:55 60 18 100 Mechanical Ventilator 30 59 18 30 09/24/19 14:35 62 18 30 09/24/19 12:54 186/84 09/24/19 12:00 Mechanical Ventilator Mechanical Ventilator Mechanical Ventilator Mechanical Ventilator 09/24/19 12:00 98.6 58 18 186/84 (118) 98 09/24/19 12:00 30 09/24/19 12:00 53 09/24/19 11:29 58 18 100 Mechanical Ventilator 30 59 18 30 09/24/19 10:17 64 09/24/19 09:17 100 09/24/19 09:14 100 09/24/19 09:13 63 18 30 09/24/19 08:00 98.4 62 18 156/77 (103) 98 09/24/19 08:00 Mechanical Ventilator Mechanical Ventilator Mechanical Ventilator Mechanical Ventilator 09/24/19 08:00 30 09/24/19 07:37 65 18 100 Mechanical Ventilator 30 67 18 30 09/24/19 06:00 148/74 09/24/19 05:00 63 18 100 Mechanical Ventilator 30 63 20 30 09/24/19 04:04 66 09/24/19 04:00 97.8 68 18 148/74 (98) 98 09/24/19 04:00 Mechanical Ventilator Mechanical Ventilator Mechanical Ventilator Mechanical Ventilator 09/24/19 04:00 66 09/24/19 04:00 30 09/24/19 03:28 60 18 100 Mechanical Ventilator 30 63 20 30 09/24/19 01:52 158/69 09/24/19 01:51 158/69 09/24/19 00:36 71 22 100 Mechanical Ventilator 30 73 27 30 09/24/19 00:14 70 21 100 Mechanical Ventilator 30 68 18 100 09/24/19 00:00 30 09/24/19 00:00 Mechanical Ventilator Mechanical Ventilator Mechanical Ventilator Mechanical Ventilator 09/24/19 00:00 96.8 74 20 158/83 (108) 100 09/23/19 23:56 68 09/23/19 22:35 60 18 30 09/23/19 20:00 70 09/23/19 20:00 30 09/23/19 20:00 97.3 70 19 154/62 (92) 100 09/23/19 20:00 Mechanical Ventilator Mechanical Ventilator Mechanical Ventilator Mechanical Ventilator I&O Intake and Output 09/23/19 09/24/19 19:00 07:00 Intake Total 850 ml 400 ml Output Total 200 ml 100 ml Balance 650 ml 300 ml Tube Feeding 350 ml 350 ml Other 500 ml 50 ml Output Urine Total 200 ml 100 ml # Bowel Movements 4 1 Dressing: saturated Wound: clean Cardiovascular: RSR Respiratory: clear, decreased breath sounds Abdomen: soft, non-tender, present bowel sounds Extremities: no tenderness, no cyanosis Laboratory Tests Test 09/24/19 05:48 09/24/19 16:00 White Blood Count 10.7 K/UL (4.8-10.8) Red Blood Count 3.46 M/UL (4.20-5.40) L Hemoglobin 10.3 G/DL (12.0-16.0) L Hematocrit 30.5 % (37.0-47.0) L Mean Corpuscular Volume 88 FL (80-99) Mean Corpuscular Hemoglobin 29.9 PG (27.0-31.0) Mean Corpuscular Hemoglobin Concent 33.9 G/DL (32.0-36.0) Red Cell Distribution Width 14.8 % (11.6-14.8) Platelet Count 475 K/UL (150-450) H Mean Platelet Volume 5.3 FL (6.5-10.1) L Neutrophils (%) (Auto) 69.5 % (45.0-75.0) Lymphocytes (%) (Auto) 25.7 % (20.0-45.0) Monocytes (%) (Auto) 3.7 % (1.0-10.0) Eosinophils (%) (Auto) 0.6 % (0.0-3.0) Basophils (%) (Auto) 0.6 % (0.0-2.0) Sodium Level 133 MMOL/L (136-145) L Potassium Level 4.3 MMOL/L (3.5-5.1) Chloride Level 95 MMOL/L (98-107) L Carbon Dioxide Level 24 MMOL/L (21-32) Anion Gap 14 mmol/L (5-15) Blood Urea Nitrogen 100 mg/dL (7-18) H Creatinine 3.3 MG/DL (0.55-1.30) H Estimat Glomerular Filtration Rate 13.5 mL/min (>60) Glucose Level 102 MG/DL (74-106) Calcium Level 9.0 MG/DL (8.5-10.1) Phosphorus Level 5.1 MG/DL (2.5-4.9) H Magnesium Level 2.8 MG/DL (1.8-2.4) H Total Bilirubin 0.5 MG/DL (0.2-1.0) Aspartate Amino Transf (AST/SGOT) 1783 U/L (15-37) H Alanine Aminotransferase (ALT/SGPT) 622 U/L (12-78) H Alkaline Phosphatase 525 U/L (46-116) H C-Reactive Protein, Quantitative 12.8 mg/dL (0.00-0.90) H Pro-B-Type Natriuretic Peptide > 04748 pg/mL (0-125) H Total Protein 7.4 G/DL (6.4-8.2) Albumin 2.4 G/DL (3.4-5.0) L Globulin 5.0 g/dL Albumin/Globulin Ratio 0.5 (1.0-2.7) L Hepatitis B Surface Antigen Pending Hepatitis B Surface Antibody, Quant Pending Hepatitis C Antibody Pending Assessment Post-op Diagnosis same Plan Problems: (1) Malnutrition Assessment & Plan: DAILY ESTIMATED NEEDS: Needs based on ESRD+ HD, underweight, wound/ 39.5kg 35-40 kcals/kg 9241-3297 total kcals 1.25-1.8 g protein/kg 49-71 g total protein 20-22 mL/kg 790-869 total fluid mLs NUTRITION DIAGNOSIS: * Increased kcal and protein needs r/t underweight status, HD needs, wuond healing as evidenced by pt is underweight per guidelines, ESRD, on HD, admitted non-blanching erythema wounds @ BL heels and sacrum * Swallowing difficulty R/T dysphagia as evidenced by WE[employer]LY[employer] DEVELOPER recommends temporary nonoral feeding at this time, s/p NGT insertion, on NGT feeding-> now s/p self removal, NPO. CURRENT TF:NPO PO DIET RECOMMENDATIONS: WHEN SAFE FOR ORAL DIET -> renal/ texture per WE[employer]NALYT[employer] DEVELOPER ENTERAL NUTRITION RECOMMENDATIONS: W/ GI access: Nepro @ 35ml/hr x 22 hrs to provide 770ml, 1386kcal, 62g prot, 560ml free water * W/ GI access, resume TF on Nepro * Initiate Nepro @ 15ml/hr x 6 hrs, advance 10ml q 4-6 hrs as tolerated to goal rate. * Hold 1 hour before and after Synthroid med * HOB over 30 degrees/ water flush per MD. ADDITIONAL RECOMMENDATIONS: 1) Calibrated bed scale wt for accurate CBW -> daily wt monitoring Per HD record: dry wt on 07/30=39.5kg (87lbs) 2) Wound care: (W/ GI access) add Nephorivte x 1 + Balta BID 3) Monitor NPO status: without GI access at this time, s/p pulling out NGT 4) Monitor for hypoglycemia while NPO 5) Monitor for continuity of HD (2) Septic arthritis Assessment & Plan: Pt presented on admission with generalized scaly rash . pt noted to be restless and scratching at skin. Bleeding from oral mucosa noted. Joint deformity noted to R shoulder. Surgical incision approximated with 11 sutures. Erythema but no exudate,or elevation in skin temp at site of incision. Historical incision R hip that is tunneled.Small amt seropurulent exudate noted. Periwound is erythematous,but no elevation in skin temp noted. No odor noted. Non-blanching erythema noted to sacrum. Perianal area is erythematous and excoriated. L heel is boggy with non-blanching erythema. R heel is soft with non-blanching erythema. No evidence of skin breakdown to all other bony prominences. Tx.plan: Cover R shoulder with Drsg and change daily and prn. Cleanse R hip wound with Saline. Apply Therahoney.Apply Cavilon Skin Barrier periwound. Cover with Optifoam drsg. Change every 3 days and prn. Apply Moisture Barrier Paste to perianal area and buttocks. Cover Sacrum with Optifoam drsg. Change every 3 days and prn. Apply Cavilon Skin Barrier to both heels. Cover each heel with Optifoam drsg. Change every 7 days and prn. APM/ELVIA Mattress overlay. Reposition at least every 2hours or as tolerated. Off-load heels with pillow. HD cath necessary HD as renal likely will need intubation 19 x 11 x 11 mm hypoechoic area in the liver adjacent to the gallbladder fossa. Although location is typical for area of focal sparing in a fatty liver, there are no findings to indicate fatty liver and this is a new finding since fairly recent previous exam. Therefore the possibility of a process such as small abscess should be considered. Atrophic echogenic kidneys Negative for gallstones or dilated bile ducts (3) Wound, open, hip or thigh with complication Assessment & Plan: slow healing will need nutritional optimization difficult ng tube peg when stable sutures removed from right shoulder comfortable wean vent may need trach (4) Abscess of right hip (5) possible septic arthritis (6) Renal failure (ARF), acute on chronic Assessment & Plan: cont HD will need tunneled cath placement okay to use fem line for now but will need change soon. line monitored and clean dressings going well (7) Pneumonia Assessment & Plan: intubated on vent support not tolerating weaning may need trach hemothorax likely after thoracentesis Chest CT noted Left chest tube placed With plan for trach chest tube can be considered but overall prognosis is very poor s/p trach left chest tub eout cxr noted and okay downgrade left pleural effusion dressings saturated will need to monitor. may need another chest tube as may not heal well on left side Anasarca, with as mentioned above diffuse edema of the soft tissues, trace ascites, and bilateral pleural effusions No hepatic abnormality to correlate with suspected small pericholecystic lesion in the liver described on recent sonogram. The lesion may be occult on noncontrast CT, may have been artifactual or may have resolved in the interim. Consider repeat sonography in a few days to assess progression No definite acute abdominal process otherwise Improved but still sizable left pleural effusion with minimal residual hemoperitoneum since prior CT scan of 09/01/2019. There is near complete atelectasis of the left lower lobe. There is a small right pleural effusion with atelectatic changes of the right lower lobe and right perihilar dense consolidation. These appear improved since a prior CT of 09/01/2019 Increased crazy paving type opacity within the right middle lobe since previous August [address], may reflect an area of increasing infiltrate, versus focal edema. There is also some dense consolidation of the perihilar right lower lobe which is improved since the previous August 31 CT Right groin temporary dialysis catheter in good position Atrophic kidneys, consistent with known history of chronic renal disease L2 compression fracture deformity, and advanced degenerative changes of the L2- L3 disc. Similar to prior study Marroquin catheter hold on repeat chest tube Camilo James Sep 24, 2019 19:34
[2019-09-24 20:00] VITALS: BP 157/74
[2019-09-25] VITALS: BP 174/97
--- NOTE | 2019-09-25 01:59 | Progress Note ---
DATE: 09/24/2019 CARDIOLOGY PROGRESS NOTE SUBJECTIVE: The patient continues on ventilator support via tracheostomy. Weaning efforts are ongoing. Concern at this time is rising liver function studies. Blood pressure is labile as well. Monitored sinus and sinus bradycardia. OBJECTIVE: LUNGS: Bilateral breath sounds. Thin trach secretions. CARDIAC: Regular rhythm and rate. Normal S1, S2. ABDOMEN: Soft with trace ascites. EXTREMITIES: No edema. LABORATORY DATA: White count 10.7, hemoglobin 10.3. Sodium 133, potassium 4.3, bicarb 24, BUN 100, creatinine 3.3, magnesium 2.8. IMPRESSION: 1. Acute on chronic diastolic congestive heart failure. 2. End-stage renal disease. 3. Respiratory failure with trach. 4. Transaminitis. 5. Moderate protein-calorie malnutrition. 6. Labs reviewed. PLAN: 1. Discontinue acetaminophen. 2. Continue hydralazine. 3. Thyroid replacement. 4. Follow up liver function studies. 5. Hemodialysis with increased ultrafiltration. Abel Stubbs M.D. DR: BOOM JOB#: [id number] CC:
[2019-09-25] MEDS: Albuterol/Ipratropium 3ml neb HHN SCH ×6 (03:00→23:16)
[2019-09-25 04:00] VITALS: BP 154/77
[2019-09-25] MEDS: Levothyroxine 125mcg tab ORAL SCH (06:30)
[2019-09-25] MEDS: HydrALAZINE 50mg tab NG SCH ×2 (06:30)
--- NOTE | 2019-09-25 06:40 | General Progress Note ---
Assessment/Plan Status: stable, not improved, unchanged, deteriorating Assessment/Plan: Assessment - Severe ulcerative esophagitis - mild elevation in LFT, Hepatitis B/C negative --> now sudden rise - ? related to new 1.9 cm mass near GB - ? autoimmune / high ESR - abnormal liver on CT - ? chronic disease / fibrosis - Resp failure - trach - s/p recent Chest tube and removal - Renal failure - aspiration risk --> s/p PEG - anemia - bradycardia - Poor prognosis Recommendations - CT reviewed -? shock liver. Repeat in am - check autoimmune markers - pending>>> neg JOLIE - check Iron panel - check AFP - GT care - water flushes - elevate HOB - monitor H&H - vent Subjective ROS Limited/Unobtainable: No Allergies: Coded Allergies: VANCOMYCIN (Unverified Allergy, Unknown, 08/02/19) Subjective s/p blood transfusion Objective Last 24 Hour Vital Signs Date Time Temp Pulse Resp B/P (MAP) Pulse Ox O2 Delivery O2 Flow Rate FiO2 09/25/19 06:30 154/77 09/25/19 04:43 69 20 30 09/25/19 04:11 65 09/25/19 04:00 Mechanical Ventilator Mechanical Ventilator Mechanical Ventilator Mechanical Ventilator 09/25/19 04:00 96.0 64 18 154/77 (102) 100 09/25/19 04:00 30 09/25/19 01:12 62 18 30 09/25/19 00:00 97.8 60 18 174/97 (122) 100 09/25/19 00:00 Mechanical Ventilator Mechanical Ventilator Mechanical Ventilator Mechanical Ventilator 09/25/19 00:00 67 09/25/19 00:00 174/97 09/25/19 00:00 30 09/24/19 22:35 67 18 100 Mechanical Ventilator 30 62 19 30 09/24/19 20:00 66 09/24/19 20:00 30 09/24/19 20:00 97.7 63 18 157/74 (101) 100 09/24/19 20:00 Mechanical Ventilator Mechanical Ventilator Mechanical Ventilator Mechanical Ventilator 09/24/19 19:59 61 19 100 Mechanical Ventilator 30 64 23 30 09/24/19 17:51 171/85 09/24/19 17:15 62 22 30 09/24/19 16:00 55 09/24/19 16:00 98.4 61 18 171/85 (113) 98 09/24/19 16:00 30 09/24/19 16:00 Mechanical Ventilator Mechanical Ventilator Mechanical Ventilator Mechanical Ventilator 09/24/19 15:55 60 18 100 Mechanical Ventilator 30 59 18 30 09/24/19 14:35 62 18 30 09/24/19 12:54 186/84 09/24/19 12:00 Mechanical Ventilator Mechanical Ventilator Mechanical Ventilator Mechanical Ventilator 09/24/19 12:00 98.6 58 18 186/84 (118) 98 09/24/19 12:00 30 09/24/19 12:00 53 09/24/19 11:29 58 18 100 Mechanical Ventilator 30 59 18 30 09/24/19 10:17 64 09/24/19 09:17 100 09/24/19 09:14 100 09/24/19 09:13 63 18 30 09/24/19 08:00 98.4 62 18 156/77 (103) 98 09/24/19 08:00 Mechanical Ventilator Mechanical Ventilator Mechanical Ventilator Mechanical Ventilator 09/24/19 08:00 30 09/24/19 07:37 65 18 100 Mechanical Ventilator 30 67 18 30 Intake and Output 09/24/19 09/25/19 19:00 07:00 Intake Total 520 ml Output Total 250 ml Balance 270 ml Tube Feeding 420 ml Other 100 ml Output Urine Total 250 ml # Bowel Movements 2 Laboratory Tests 09/24/19 16:00: Hepatitis B Surface Antigen [Pending], Hepatitis B Surface Antibody, Quant [ Pending], Hepatitis C Antibody [Pending] Height (Feet): 5 Height (Inches): 4.00 Weight (Pounds): 112 General Appearance: lethargic EENT: normal ENT inspection Neck: supple Cardiovascular: normal rate Respiratory/Chest: decreased breath sounds Abdomen: normal bowel sounds, non tender, soft Extremities: non-tender Kenny Rudolph MD Sep 25, 2019 06:40
--- NOTE | 2019-09-25 07:15 | General Progress Note ---
Assessment/Plan Problem List: (1) Hypothyroid ICD Codes: E03.9 - Hypothyroidism, unspecified SNOMED: 58850827 (2) ESRD (end stage renal disease) on dialysis ICD Codes: N18.6 - End stage renal disease; Z99.2 - Dependence on renal dialysis SNOMED: 784248624 (3) Hypotension ICD Codes: I95.9 - Hypotension, unspecified SNOMED: 77444847 Qualifiers: Qualified Codes: I95.3 - Hypotension of hemodialysis (4) Pneumonia ICD Codes: J18.9 - Pneumonia, unspecified organism SNOMED: 902109782 Qualifiers: Qualified Codes: J18.9 - Pneumonia, unspecified organism (5) Diabetes mellitus ICD Codes: E11.9 - Type 2 diabetes mellitus without complications SNOMED: 00875604 Status: stable, not improved, unchanged, deteriorating Assessment/Plan: continue Levothyroxine tablet 125 mcg daily repeat TSH, free 4 next week continue glucose monitoring without insulin coverage hypoglycemia protocol in order Subjective ROS Limited/Unobtainable: Yes Allergies: Coded Allergies: VANCOMYCIN (Unverified Allergy, Unknown, 08/02/19) Subjective events noted interval notes reviewed glucose values are stable Item Value Date Time Bedside Blood Glucose 89 mg/dl 09/24/19 1200 Objective Last 24 Hour Vital Signs Date Time Temp Pulse Resp B/P (MAP) Pulse Ox O2 Delivery O2 Flow Rate FiO2 09/25/19 06:30 154/77 09/25/19 04:43 69 20 30 09/25/19 04:11 65 09/25/19 04:00 Mechanical Ventilator Mechanical Ventilator Mechanical Ventilator Mechanical Ventilator 09/25/19 04:00 96.0 64 18 154/77 (102) 100 09/25/19 04:00 30 09/25/19 01:12 62 18 30 09/25/19 00:00 97.8 60 18 174/97 (122) 100 09/25/19 00:00 Mechanical Ventilator Mechanical Ventilator Mechanical Ventilator Mechanical Ventilator 09/25/19 00:00 67 09/25/19 00:00 174/97 09/25/19 00:00 30 09/24/19 22:35 67 18 100 Mechanical Ventilator 30 62 19 30 09/24/19 20:00 66 09/24/19 20:00 30 09/24/19 20:00 97.7 63 18 157/74 (101) 100 09/24/19 20:00 Mechanical Ventilator Mechanical Ventilator Mechanical Ventilator Mechanical Ventilator 09/24/19 19:59 61 19 100 Mechanical Ventilator 30 64 23 30 09/24/19 17:51 171/85 09/24/19 17:15 62 22 30 09/24/19 16:00 55 09/24/19 16:00 98.4 61 18 171/85 (113) 98 09/24/19 16:00 30 09/24/19 16:00 Mechanical Ventilator Mechanical Ventilator Mechanical Ventilator Mechanical Ventilator 09/24/19 15:55 60 18 100 Mechanical Ventilator 30 59 18 30 09/24/19 14:35 62 18 30 09/24/19 12:54 186/84 09/24/19 12:00 Mechanical Ventilator Mechanical Ventilator Mechanical Ventilator Mechanical Ventilator 09/24/19 12:00 98.6 58 18 186/84 (118) 98 09/24/19 12:00 30 09/24/19 12:00 53 09/24/19 11:29 58 18 100 Mechanical Ventilator 30 59 18 30 09/24/19 10:17 64 09/24/19 09:17 100 09/24/19 09:14 100 09/24/19 09:13 63 18 30 09/24/19 08:00 98.4 62 18 156/77 (103) 98 09/24/19 08:00 Mechanical Ventilator Mechanical Ventilator Mechanical Ventilator Mechanical Ventilator 09/24/19 08:00 30 09/24/19 07:37 65 18 100 Mechanical Ventilator 30 67 18 30 Intake and Output 09/24/19 09/25/19 19:00 07:00 Intake Total 520 ml Output Total 250 ml Balance 270 ml Tube Feeding 420 ml Other 100 ml Output Urine Total 250 ml # Bowel Movements 2 Laboratory Tests 09/24/19 16:00: Hepatitis B Surface Antigen [Pending], Hepatitis B Surface Antibody, Quant [ Pending], Hepatitis C Antibody [Pending] Height (Feet): 5 Height (Inches): 4.00 Weight (Pounds): 112 General Appearance: no apparent distress Neck: normal alignment Cardiovascular: normal rate Respiratory/Chest: rhonchi - bilaterally Pelvis: normal external exam Objective Current Medications Medications (Trade) Dose Ordered Sig/Javier Route PRN Reason Start Time Stop Time Status Last Admin Dose Admin Acetylcysteine (Mucomyst) 100 mg Q4HRT HHN 08/31/19 19:00 11/29/19 18:59 09/24/19 22:39 Albuterol/ Ipratropium (Albuterol/ Ipratropium) 3 ml Q4HRT HHN 09/22/19 15:00 12/09/19 14:59 09/24/19 22:39 Chlorhexidine Gluconate (Nae-Hex 2%) 1 applic DAILY@1999 TOPIC 09/17/19 20:00 12/16/19 19:59 09/24/19 21:34 Clonidine HCl (Catapres Tab) 0.1 mg Q4H PRN ORAL For High Blood Pressure 09/22/19 21:00 12/21/19 20:59 09/24/19 01:52 Dextrose (Dextrose 50%) 25 ml Q30M PRN IV Hypoglycemia 09/02/19 06:15 12/01/19 06:14 09/04/19 12:11 Dextrose (Dextrose 50%) 50 ml Q30M PRN IV Hypoglycemia 09/02/19 06:15 12/01/19 06:14 Hydralazine HCl (Apresoline) 50 mg Q6HR NG 09/23/19 12:00 12/22/19 11:59 09/25/19 06:30 Levothyroxine Sodium (Synthroid) 125 mcg DAILY@0630 ORAL 09/22/19 06:30 10/22/19 06:29 09/25/19 06:30 Psyllium Hydrophilic Mucilloid (Metamucil) 1 pkt DAILY ORAL 09/22/19 15:00 10/22/19 14:59 09/24/19 10:02 Antonio Jacome MD Sep 25, 2019 07:15
[2019-09-25 07:36] LABS: AMMONIA 22 umol/L (11-32); BASOPHILS % (AUTO) 0.5 % (0.0-2.0); EOSINOPHILS % (AUTO) 1.2 % (0.0-3.0); HEMATOCRIT 28.6 % (37.0-47.0); HEMOGLOBIN 9.7 G/DL (12.0-16.0); LYMPHOCYTES % (AUTO) 28.3 % (20.0-45.0); MEAN CORPUSCULAR VOLUME 88 FL (80-99); MONOCYTES % (AUTO) 2.9 % (1.0-10.0); NEUTROPHILS % (AUTO) 67.1 % (45.0-75.0); PLATELET COUNT 483 K/UL (150-450); RED BLOOD COUNT 3.25 M/UL (4.20-5.40); RED CELL DISTRIBUTION WIDTH 15.1 % (11.6-14.8); WHITE BLOOD COUNT 7.3 K/UL (4.8-10.8)
[2019-09-25 08:00] VITALS: BP 177/83
[2019-09-25 08:00] LABS: ALANINE AMINOTRANSFERASE 1108 U/L (12-78); ALBUMIN 2.5 G/DL (3.4-5.0); ALBUMIN/GLOBULIN RATIO 0.5 (1.0-2.7); ALKALINE PHOSPHATASE 826 U/L (46-116); ANION GAP 12 mmol/L (5-15); BILIRUBIN,TOTAL 0.6 MG/DL (0.2-1.0); BLOOD UREA NITROGEN 119 mg/dL (7-18); CALCIUM 9.1 MG/DL (8.5-10.1); CARBON DIOXIDE 26 MMOL/L (21-32); CHLORIDE 95 MMOL/L (98-107); CREATININE 3.4 MG/DL (0.55-1.30); GAMMA GLUTAMYL TRANSPEPTIDASE 235 U/L (5-85); PHOSPHORUS 6.1 MG/DL (2.5-4.9); SODIUM 133 MMOL/L (136-145)
[2019-09-25] MEDS: Metamucil Pkt ORAL SCH (08:39)
[2019-09-25 08:44] LABS: ASPARTATE AMINO TRANSFERASE 3771 U/L (15-37)
--- NOTE | 2019-09-25 09:01 | General Progress Note ---
Assessment/Plan Problem List: (1) Failure to thrive (0-17) ICD Codes: R62.51 - Failure to thrive (0-17) SNOMED: 548136083 (2) Hypertensive kidney disease ICD Codes: I12.9 - Hypertensive chronic kidney disease with stage 1 through stage 4 chronic kidney disease, or unspecified chronic kidney disease SNOMED: 61236398 (3) Pneumonia ICD Codes: J18.9 - Pneumonia, unspecified organism SNOMED: 259925812 Qualifiers: Qualified Codes: J18.9 - Pneumonia, unspecified organism (4) ESRD (end stage renal disease) ICD Codes: N18.6 - End stage renal disease SNOMED: 04003087 (5) Septic arthritis ICD Codes: M00.9 - Pyogenic arthritis, unspecified SNOMED: 543845828 (6) Thrombocytopenia ICD Codes: D69.6 - Thrombocytopenia, unspecified SNOMED: 299452150 (7) Hypotension ICD Codes: I95.9 - Hypotension, unspecified SNOMED: 24690420 Qualifiers: Qualified Codes: I95.3 - Hypotension of hemodialysis (8) Malnutrition ICD Codes: E46 - Unspecified protein-calorie malnutrition SNOMED: 01009585 Status: stable, not improved, unchanged, deteriorating Assessment/Plan: Continue vent support. Wean as able. Will discuss with pulmonary if patient could be weaned to trach collar.Suctioning and pulmonary toilet. Continue G-tube feedings. Monitor residuals Continue current blood pressure regimen with close monitoring of blood pressure. Hemodialysis with ultrafiltration per nephrology. Turn every 2 hours and good skin care. monitor labs/lfts hep panel dc hydralazine(per GI can cause transaminitis) Discharge planning in progress Subjective ROS Limited/Unobtainable: No Constitutional: Reports: malaise, weakness HEENT: Reports: no symptoms Cardiovascular: Reports: no symptoms Respiratory: Reports: no symptoms Gastrointestinal/Abdominal: Reports: difficulty swallowing Genitourinary: Reports: no symptoms Neurologic/Psychiatric: Reports: anxiety Endocrine: Reports: no symptoms Hematologic/Lymphatic: Reports: anemia Allergies: Coded Allergies: VANCOMYCIN (Unverified Allergy, Unknown, 08/02/19) All Systems: reviewed and negative except above Subjective There were no overnight events. Patient remained stable on the ventilator. She occasionally opens her eyes. Tolerating feedings. LFTS trending up. d/w GI and renal Objective Last 24 Hour Vital Signs Date Time Temp Pulse Resp B/P (MAP) Pulse Ox O2 Delivery O2 Flow Rate FiO2 09/25/19 08:38 177/83 09/25/19 08:00 96.3 60 18 177/83 (114) 100 09/25/19 07:40 68 18 98 Mechanical Ventilator 30 66 18 30 09/25/19 06:30 154/77 09/25/19 04:43 69 20 30 09/25/19 04:11 65 09/25/19 04:00 Mechanical Ventilator Mechanical Ventilator Mechanical Ventilator Mechanical Ventilator 09/25/19 04:00 96.0 64 18 154/77 (102) 100 09/25/19 04:00 30 09/25/19 01:12 62 18 30 09/25/19 00:00 97.8 60 18 174/97 (122) 100 09/25/19 00:00 Mechanical Ventilator Mechanical Ventilator Mechanical Ventilator Mechanical Ventilator 09/25/19 00:00 67 09/25/19 00:00 174/97 09/25/19 00:00 30 09/24/19 22:35 67 18 100 Mechanical Ventilator 30 62 19 30 09/24/19 20:00 66 09/24/19 20:00 30 09/24/19 20:00 97.7 63 18 157/74 (101) 100 09/24/19 20:00 Mechanical Ventilator Mechanical Ventilator Mechanical Ventilator Mechanical Ventilator 09/24/19 19:59 61 19 100 Mechanical Ventilator 30 64 23 30 09/24/19 17:51 171/85 09/24/19 17:15 62 22 30 09/24/19 16:00 55 09/24/19 16:00 98.4 61 18 171/85 (113) 98 09/24/19 16:00 30 09/24/19 16:00 Mechanical Ventilator Mechanical Ventilator Mechanical Ventilator Mechanical Ventilator 09/24/19 15:55 60 18 100 Mechanical Ventilator 30 59 18 30 09/24/19 14:35 62 18 30 09/24/19 12:54 186/84 09/24/19 12:00 Mechanical Ventilator Mechanical Ventilator Mechanical Ventilator Mechanical Ventilator 09/24/19 12:00 98.6 58 18 186/84 (118) 98 09/24/19 12:00 30 09/24/19 12:00 53 09/24/19 11:29 58 18 100 Mechanical Ventilator 30 59 18 30 09/24/19 10:17 64 09/24/19 09:17 100 09/24/19 09:14 100 09/24/19 09:13 63 18 30 Intake and Output 09/24/19 09/25/19 19:00 07:00 Intake Total 520 ml 500 ml Output Total 250 ml 150 ml Balance 270 ml 350 ml Intake Free Water 150 ml Tube Feeding 420 ml 350 ml Other 100 ml Output Urine Total 250 ml 150 ml # Bowel Movements 2 Laboratory Tests 09/24/19 16:00: Hepatitis B Surface Antigen [Pending], Hepatitis B Surface Antibody, Quant [ Pending], Hepatitis C Antibody [Pending] 09/25/19 06:11: White Blood Count 7.3, Red Blood Count 3.25L, Hemoglobin 9.7L, Hematocrit 28.6L , Mean Corpuscular Volume 88, Mean Corpuscular Hemoglobin 29.8, Mean Corpuscular Hemoglobin Concent 33.9, Red Cell Distribution Width 15.1H, Platelet Count 483H, Mean Platelet Volume 5.2L, Neutrophils (%) (Auto) 67.1, Lymphocytes (%) (Auto) 28.3, Monocytes (%) (Auto) 2.9, Eosinophils (%) (Auto) 1.2, Basophils (%) (Auto) 0.5, Sodium Level 133L, Potassium Level 5.0, Chloride Level 95L, Carbon Dioxide Level 26, Anion Gap 12, Blood Urea Nitrogen 119H, Creatinine 3.4H, Estimat Glomerular Filtration Rate 13.1, Glucose Level 92, Calcium Level 9.1, Phosphorus Level 6.1H, Magnesium Level 2.8H, Total Bilirubin 0.6, Gamma Glutamyl Transpeptidase 235H, Aspartate Amino Transf (AST/SGOT) 3771H , Alanine Aminotransferase (ALT/SGPT) 1108H, Alkaline Phosphatase 826H, Ammonia 22, C-Reactive Protein, Quantitative 11.8H, Pro-B-Type Natriuretic Peptide > 81060W, Total Protein 7.7, Albumin 2.5L, Globulin 5.2, Albumin/Globulin Ratio 0.5L Height (Feet): 5 Height (Inches): 4.00 Weight (Pounds): 112 Objective General Appearance: WD/WN, awake. looks around. no distress. thin and frail Neck: supple +trach Cardiovascular: normal rate Respiratory/Chest: rhonchi - bilaterally Abdomen: normal bowel sounds, non tender, soft, no organomegaly Edema: no edema noted Arm (L), no edema noted Arm (R), no edema noted Leg (L), no edema noted Leg (R), no edema noted Pedal (L), no edema noted Pedal (R), no edema noted Generalized Neurologic: disoriented, aphasia Skin: +excoriations Nate Beltran MD Sep 25, 2019 09:01
[2019-09-25 12:00] VITALS: BP 145/70
--- NOTE | 2019-09-25 12:26 | Infectious Diseases Prog Note ---
Assessment/Plan Assessment/Plan A; 1. Hailee sepsis treated 2. Klebsiella sepsis , treated 3. Right shoulder septic arthritis, status post surgery. 4. Diabetes. 5. Hypertension. 6. Anemia 7. Thrombocytopenia improving 9. Atelectasis , left lung collapse 10. Pleural effusion, hemothorax 11. Ulcerative esophagitis PLAN: 1. Observe off antibiotic Subjective ROS Limited/Unobtainable: Yes Allergies: Coded Allergies: VANCOMYCIN (Unverified Allergy, Unknown, 08/02/19) Objective Vital Signs Last 24 Hour Vital Signs Date Time Temp Pulse Resp B/P (MAP) Pulse Ox O2 Delivery O2 Flow Rate FiO2 09/25/19 09:47 67 177/83 09/25/19 08:38 177/83 09/25/19 08:00 Mechanical Ventilator Mechanical Ventilator Mechanical Ventilator Mechanical Ventilator 09/25/19 08:00 30 09/25/19 08:00 96.3 60 18 177/83 (114) 100 09/25/19 08:00 67 09/25/19 07:40 68 18 98 Mechanical Ventilator 30 66 18 30 09/25/19 06:30 154/77 09/25/19 04:43 69 20 30 09/25/19 04:11 65 09/25/19 04:00 Mechanical Ventilator Mechanical Ventilator Mechanical Ventilator Mechanical Ventilator 09/25/19 04:00 96.0 64 18 154/77 (102) 100 09/25/19 04:00 30 09/25/19 01:12 62 18 30 09/25/19 00:00 97.8 60 18 174/97 (122) 100 09/25/19 00:00 Mechanical Ventilator Mechanical Ventilator Mechanical Ventilator Mechanical Ventilator 09/25/19 00:00 67 09/25/19 00:00 174/97 09/25/19 00:00 30 09/24/19 22:35 67 18 100 Mechanical Ventilator 30 62 19 30 09/24/19 20:00 66 09/24/19 20:00 30 09/24/19 20:00 97.7 63 18 157/74 (101) 100 09/24/19 20:00 Mechanical Ventilator Mechanical Ventilator Mechanical Ventilator Mechanical Ventilator 09/24/19 19:59 61 19 100 Mechanical Ventilator 30 64 23 30 09/24/19 17:51 171/85 09/24/19 17:15 62 22 30 09/24/19 16:00 55 09/24/19 16:00 98.4 61 18 171/85 (113) 98 09/24/19 16:00 30 09/24/19 16:00 Mechanical Ventilator Mechanical Ventilator Mechanical Ventilator Mechanical Ventilator 09/24/19 15:55 60 18 100 Mechanical Ventilator 30 59 18 30 09/24/19 14:35 62 18 30 09/24/19 12:54 186/84 Height (Feet): 5 Height (Inches): 4.00 Weight (Pounds): 112 General Appearance: cachetic HEENT: status post trach Respiratory/Chest: lungs clear, other - on ventilator Cardiovascular: normal rate Abdomen: soft, non tender, other - GT feeding Extremities: no edema Neurologic/Psychiatric: disoriented, other - awake Musculoskeletal: atrophy Laboratory Tests Test 09/24/19 16:00 09/25/19 06:11 Hepatitis B Surface Antigen Pending Hepatitis B Surface Antibody, Quant Pending Hepatitis C Antibody Pending White Blood Count 7.3 K/UL (4.8-10.8) Red Blood Count 3.25 M/UL (4.20-5.40) L Hemoglobin 9.7 G/DL (12.0-16.0) L Hematocrit 28.6 % (37.0-47.0) L Mean Corpuscular Volume 88 FL (80-99) Mean Corpuscular Hemoglobin 29.8 PG (27.0-31.0) Mean Corpuscular Hemoglobin Concent 33.9 G/DL (32.0-36.0) Red Cell Distribution Width 15.1 % (11.6-14.8) H Platelet Count 483 K/UL (150-450) H Mean Platelet Volume 5.2 FL (6.5-10.1) L Neutrophils (%) (Auto) 67.1 % (45.0-75.0) Lymphocytes (%) (Auto) 28.3 % (20.0-45.0) Monocytes (%) (Auto) 2.9 % (1.0-10.0) Eosinophils (%) (Auto) 1.2 % (0.0-3.0) Basophils (%) (Auto) 0.5 % (0.0-2.0) Sodium Level 133 MMOL/L (136-145) L Potassium Level 5.0 MMOL/L (3.5-5.1) Chloride Level 95 MMOL/L (98-107) L Carbon Dioxide Level 26 MMOL/L (21-32) Anion Gap 12 mmol/L (5-15) Blood Urea Nitrogen 119 mg/dL (7-18) H Creatinine 3.4 MG/DL (0.55-1.30) H Estimat Glomerular Filtration Rate 13.1 mL/min (>60) Glucose Level 92 MG/DL (74-106) Calcium Level 9.1 MG/DL (8.5-10.1) Phosphorus Level 6.1 MG/DL (2.5-4.9) H Magnesium Level 2.8 MG/DL (1.8-2.4) H Total Bilirubin 0.6 MG/DL (0.2-1.0) Gamma Glutamyl Transpeptidase 235 U/L (5-85) H Aspartate Amino Transf (AST/SGOT) 3771 U/L (15-37) H Alanine Aminotransferase (ALT/SGPT) 1108 U/L (12-78) H Alkaline Phosphatase 826 U/L (46-116) H Ammonia 22 umol/L (11-32) C-Reactive Protein, Quantitative 11.8 mg/dL (0.00-0.90) H Pro-B-Type Natriuretic Peptide > 24011 pg/mL (0-125) H Total Protein 7.7 G/DL (6.4-8.2) Albumin 2.5 G/DL (3.4-5.0) L Globulin 5.2 g/dL Albumin/Globulin Ratio 0.5 (1.0-2.7) L Current Medications Medications (Trade) Dose Ordered Sig/Javier Route PRN Reason Start Time Stop Time Status Last Admin Dose Admin Acetylcysteine (Mucomyst) 100 mg Q4HRT [facility] 08/31/19 19:00 11/29/19 18:59 09/25/19 07:25 Albuterol/ Ipratropium (Albuterol/ Ipratropium) 3 ml Q4HRT [facility] 09/22/19 15:00 12/09/19 14:59 09/25/19 07:24 Amlodipine Besylate (Norvasc) 5 mg BID ORAL 09/25/19 09:00 10/25/19 08:59 09/25/19 09:47 Chlorhexidine Gluconate (Nae-Hex 2%) 1 applic DAILY@1999 TOPIC 09/17/19:00 12/16/19 19:59 09/24/19 21:34 Clonidine HCl (Catapres Tab) 0.1 mg Q4H PRN ORAL For High Blood Pressure 09/22/19 21:00 12/21/19 20:59 09/25/19 08:38 Dextrose (Dextrose 50%) 25 ml Q30M PRN IV Hypoglycemia 09/02/19 06:15 12/01/19 06:14 09/04/19 12:11 Dextrose (Dextrose 50%) 50 ml Q30M PRN IV Hypoglycemia 09/02/19 06:15 12/01/19 06:14 Levothyroxine Sodium (Synthroid) 125 mcg DAILY@06 ORAL 09/22/19 06:30 10/22/19 06:29 09/25/19 06:30 Psyllium Hydrophilic Mucilloid (Metamucil) 1 pkt DAILY ORAL 09/22/19 15:00 10/22/19 14:59 09/25/19 08:39 Warren Parks MD Sep 25, 2019 12:26
--- NOTE | 2019-09-25 12:39 | Nephrology Progress Note ---
Assessment/Plan Problem List: (1) Liver enzyme elevation Assessment: Acute (2) ESRD (end stage renal disease) on dialysis (3) Malnutrition (4) Anemia in CKD (chronic kidney disease) (5) Hypotension (6) Thrombocytopenia (7) Sepsis Assessment: klebsiella in blood Assessment -Early sepsis with shock. -Healthcare-associated pneumonia. -Severe protein-calorie malnutrition. -Thrombocytopenia. - End-stage renal disease. - History of hypertension. - Bradycardia. - HypoThyroid Plan Check labs in a.m. Liver enzymes rising, hepatitis panel ordered Tracheostomy September 07 Last dialysis September 20 done Chest tube on the left side was put in on September 01 was discontinued September 07 Patient transfused 3 units of packed RBCs for low hemoglobin Remains full code Blood pressure fluctuating, will start hydralazine via NG tube for blood pressure Magnesium and potassium supplement intravenously as needed Patient underwent PEG placement August 16 patient remains intubated on ventilator Discussed with RN Aim to wean from ventilator or consider tracheostomy Permacath was removed on August 12 Dialysis 08/11 Transfusion as needed Patient had hematemesis meds IV as possible Surveillance blood cultures tomorrow Plan to put the permacath back in on Thursday if cultures are negative keep BP and BS in check Inflammatory markers per orders Subjective ROS Limited/Unobtainable: Yes Objective Objective Last 24 Hour Vital Signs Date Time Temp Pulse Resp B/P (MAP) Pulse Ox O2 Delivery O2 Flow Rate FiO2 09/25/19 11:42 59 09/25/19 09:47 67 177/83 09/25/19 08:38 177/83 09/25/19 08:00 Mechanical Ventilator Mechanical Ventilator Mechanical Ventilator Mechanical Ventilator 09/25/19 08:00 30 09/25/19 08:00 96.3 60 18 177/83 (114) 100 09/25/19 08:00 67 09/25/19 07:40 68 18 98 Mechanical Ventilator 30 66 18 30 09/25/19 06:30 154/77 09/25/19 04:43 69 20 30 09/25/19 04:11 65 09/25/19 04:00 Mechanical Ventilator Mechanical Ventilator Mechanical Ventilator Mechanical Ventilator 09/25/19 04:00 96.0 64 18 154/77 (102) 100 09/25/19 04:00 30 09/25/19 01:12 62 18 30 09/25/19 00:00 97.8 60 18 174/97 (122) 100 09/25/19 00:00 Mechanical Ventilator Mechanical Ventilator Mechanical Ventilator Mechanical Ventilator 09/25/19 00:00 67 09/25/19 00:00 174/97 09/25/19 00:00 30 09/24/19 22:35 67 18 100 Mechanical Ventilator 30 62 19 30 09/24/19 20:00 66 09/24/19 20:00 30 09/24/19 20:00 97.7 63 18 157/74 (101) 100 09/24/19 20:00 Mechanical Ventilator Mechanical Ventilator Mechanical Ventilator Mechanical Ventilator 09/24/19 19:59 61 19 100 Mechanical Ventilator 30 64 23 30 09/24/19 17:51 171/85 09/24/19 17:15 62 22 30 09/24/19 16:00 55 09/24/19 16:00 98.4 61 18 171/85 (113) 98 09/24/19 16:00 30 09/24/19 16:00 Mechanical Ventilator Mechanical Ventilator Mechanical Ventilator Mechanical Ventilator 09/24/19 15:55 60 18 100 Mechanical Ventilator 30 59 18 30 09/24/19 14:35 62 18 30 09/24/19 12:54 186/84 Intake and Output 09/24/19 09/25/19 19:00 07:00 Intake Total 520 ml 500 ml Output Total 250 ml 150 ml Balance 270 ml 350 ml Intake Free Water 150 ml Tube Feeding 420 ml 350 ml Other 100 ml Output Urine Total 250 ml 150 ml # Bowel Movements 2 Laboratory Tests 09/24/19 16:00: Hepatitis B Surface Antigen [Pending], Hepatitis B Surface Antibody, Quant [ Pending], Hepatitis C Antibody [Pending] 09/25/19 06:11: White Blood Count 7.3, Red Blood Count 3.25L, Hemoglobin 9.7L, Hematocrit 28.6L , Mean Corpuscular Volume 88, Mean Corpuscular Hemoglobin 29.8, Mean Corpuscular Hemoglobin Concent 33.9, Red Cell Distribution Width 15.1H, Platelet Count 483H, Mean Platelet Volume 5.2L, Neutrophils (%) (Auto) 67.1, Lymphocytes (%) (Auto) 28.3, Monocytes (%) (Auto) 2.9, Eosinophils (%) (Auto) 1.2, Basophils (%) (Auto) 0.5, Sodium Level 133L, Potassium Level 5.0, Chloride Level 95L, Carbon Dioxide Level 26, Anion Gap 12, Blood Urea Nitrogen 119H, Creatinine 3.4H, Estimat Glomerular Filtration Rate 13.1, Glucose Level 92, Calcium Level 9.1, Phosphorus Level 6.1H, Magnesium Level 2.8H, Total Bilirubin 0.6, Gamma Glutamyl Transpeptidase 235H, Aspartate Amino Transf (AST/SGOT) 3771H , Alanine Aminotransferase (ALT/SGPT) 1108H, Alkaline Phosphatase 826H, Ammonia 22, C-Reactive Protein, Quantitative 11.8H, Pro-B-Type Natriuretic Peptide > 24381E, Total Protein 7.7, Albumin 2.5L, Globulin 5.2, Albumin/Globulin Ratio 0.5L Height (Feet): 5 Height (Inches): 4.00 Weight (Pounds): 112 General Appearance: no apparent distress, lethargic EENT: other - Trach and vent Cardiovascular: normal rate Respiratory/Chest: decreased breath sounds Abdomen: distended, other Objective no change William Blackwood MD Sep 25, 2019 12:39
--- NOTE | 2019-09-25 13:00 | Critical Care Progress Note ---
Assessment/Plan Assessment/Plan respiratory failure hypoxemia chronic renal failure toxic met encephalopathy severe protein calorie malnutrition cachexia left lung whiteout/collapse, anemia pulmonary edema + pleural effusion s/p CT placement and removal s/p trach hypernatremia PLAN trach care as is repeat imaging this week care noted and reviewed monitor for fluid retention reviewed care and continue to monitor weaning not successful prognosis poor overall for change keep negative and monitor osmotic pressures fully dependent for now close follow up discussed elevated head and monitor ROM watch fluid status and keep negative nutrition and monitor residuals isolation reviewed off load as able and monitor skin exam ROM as able and monitor contractures prognosis poor for recovery will need LTAC impression, plan, and exam edited and reviewed in detail care discussed with fitting room associate - Subjective Interval Events: unable to wean reviewed RT care oxygen needs noted very weak ROS Limited/Unobtainable: Yes Condition: critical EKG Rhythm: Sinus Rhythm Residuals: minimal Tube Feeding Tolerated: yes I&O: Intake and Output 09/24/19 09/25/19 19:00 07:00 Intake Total 520 ml 500 ml Output Total 250 ml 150 ml Balance 270 ml 350 ml Intake Free Water 150 ml Tube Feeding 420 ml 350 ml Other 100 ml Output Urine Total 250 ml 150 ml # Bowel Movements 2 Critical Care - Objective ET-Tube: 7.0 ET Position: 19 Last 24 Hour Vital Signs Date Time Temp Pulse Resp B/P (MAP) Pulse Ox O2 Delivery O2 Flow Rate FiO2 09/25/19 12:37 63 20 99 Mechanical Ventilator 30 63 20 30 09/25/19 11:42 59 09/25/19 09:47 67 177/83 09/25/19 08:38 177/83 09/25/19 08:00 Mechanical Ventilator Mechanical Ventilator Mechanical Ventilator Mechanical Ventilator 09/25/19 08:00 30 09/25/19 08:00 96.3 60 18 177/83 (114) 100 09/25/19 08:00 67 09/25/19 07:40 68 18 98 Mechanical Ventilator 30 66 18 30 09/25/19 06:30 154/77 09/25/19 04:43 69 20 30 09/25/19 04:11 65 09/25/19 04:00 Mechanical Ventilator Mechanical Ventilator Mechanical Ventilator Mechanical Ventilator 09/25/19 04:00 96.0 64 18 154/77 (102) 100 09/25/19 04:00 30 09/25/19 01:12 62 18 30 09/25/19 00:00 97.8 60 18 174/97 (122) 100 09/25/19 00:00 Mechanical Ventilator Mechanical Ventilator Mechanical Ventilator Mechanical Ventilator 09/25/19 00:00 67 09/25/19 00:00 174/97 09/25/19 00:00 30 09/24/19 22:35 67 18 100 Mechanical Ventilator 30 62 19 30 09/24/19 20:00 66 09/24/19 20:00 30 09/24/19 20:00 97.7 63 18 157/74 (101) 100 09/24/19 20:00 Mechanical Ventilator Mechanical Ventilator Mechanical Ventilator Mechanical Ventilator 09/24/19 19:59 61 19 100 Mechanical Ventilator 30 64 23 30 09/24/19 17:51 171/85 09/24/19 17:15 62 22 30 09/24/19 16:00 55 09/24/19 16:00 98.4 61 18 171/85 (113) 98 09/24/19 16:00 30 09/24/19 16:00 Mechanical Ventilator Mechanical Ventilator Mechanical Ventilator Mechanical Ventilator 09/24/19 15:55 60 18 100 Mechanical Ventilator 30 59 18 30 09/24/19 14:35 62 18 30 Labs: Labs Test 09/24/19 05:48 09/24/19 16:00 09/25/19 06:11 White Blood Count 10.7 K/UL (4.8-10.8) 7.3 K/UL (4.8-10.8) Red Blood Count 3.46 M/UL (4.20-5.40) 3.25 M/UL (4.20-5.40) Hemoglobin 10.3 G/DL (12.0-16.0) 9.7 G/DL (12.0-16.0) Hematocrit 30.5 % (37.0-47.0) 28.6 % (37.0-47.0) Mean Corpuscular Volume 88 FL (80-99) 88 FL (80-99) Mean Corpuscular Hemoglobin 29.9 PG (27.0-31.0) 29.8 PG (27.0-31.0) Mean Corpuscular Hemoglobin Concent 33.9 G/DL (32.0-36.0) 33.9 G/DL (32.0-36.0) Red Cell Distribution Width 14.8 % (11.6-14.8) 15.1 % (11.6-14.8) Platelet Count 475 K/UL (150-450) 483 K/UL (150-450) Mean Platelet Volume 5.3 FL (6.5-10.1) 5.2 FL (6.5-10.1) Neutrophils (%) (Auto) 69.5 % (45.0-75.0) 67.1 % (45.0-75.0) Lymphocytes (%) (Auto) 25.7 % (20.0-45.0) 28.3 % (20.0-45.0) Monocytes (%) (Auto) 3.7 % (1.0-10.0) 2.9 % (1.0-10.0) Eosinophils (%) (Auto) 0.6 % (0.0-3.0) 1.2 % (0.0-3.0) Basophils (%) (Auto) 0.6 % (0.0-2.0) 0.5 % (0.0-2.0) Sodium Level 133 MMOL/L (136-145) 133 MMOL/L (136-145) Potassium Level 4.3 MMOL/L (3.5-5.1) 5.0 MMOL/L (3.5-5.1) Chloride Level 95 MMOL/L (98-107) 95 MMOL/L (98-107) Carbon Dioxide Level 24 MMOL/L (21-32) 26 MMOL/L (21-32) Anion Gap 14 mmol/L (5-15) 12 mmol/L (5-15) Blood Urea Nitrogen 100 mg/dL (7-18) 119 mg/dL (7-18) Creatinine 3.3 MG/DL (0.55-1.30) 3.4 MG/DL (0.55-1.30) Estimat Glomerular Filtration Rate 13.5 mL/min (>60) 13.1 mL/min (>60) Glucose Level 102 MG/DL (74-106) 92 MG/DL (74-106) Calcium Level 9.0 MG/DL (8.5-10.1) 9.1 MG/DL (8.5-10.1) Phosphorus Level 5.1 MG/DL (2.5-4.9) 6.1 MG/DL (2.5-4.9) Magnesium Level 2.8 MG/DL (1.8-2.4) 2.8 MG/DL (1.8-2.4) Total Bilirubin 0.5 MG/DL (0.2-1.0) 0.6 MG/DL (0.2-1.0) Aspartate Amino Transf (AST/SGOT) 1783 U/L (15-37) 3771 U/L (15-37) Alanine Aminotransferase (ALT/SGPT) 622 U/L (12-78) 1108 U/L (12-78) Alkaline Phosphatase 525 U/L (46-116) 826 U/L (46-116) C-Reactive Protein, Quantitative 12.8 mg/dL (0.00-0.90) 11.8 mg/dL (0.00-0.90) Pro-B-Type Natriuretic Peptide > 63381 pg/mL (0-125) > 66546 pg/mL (0-125) Total Protein 7.4 G/DL (6.4-8.2) 7.7 G/DL (6.4-8.2) Albumin 2.4 G/DL (3.4-5.0) 2.5 G/DL (3.4-5.0) Globulin 5.0 g/dL 5.2 g/dL Albumin/Globulin Ratio 0.5 (1.0-2.7) 0.5 (1.0-2.7) Gamma Glutamyl Transpeptidase 235 U/L (5-85) Ammonia 22 umol/L (11-32) Objective: WDWN NAD trach in place reduced breath sounds left greater right; no rhonchi [id number] without MRG NABS nontender no HSM no CCE contractures feeding tube in place no distention reduced LOC and weak nonfocal cachectic reviewed and edited Accucheck: 89 Malcolm Cruz MD Sep 25, 2019 13:00
[2019-09-25] MEDS: Renvela 800mg Pkt NG SCH ×2 (13:56→21:13)
--- NOTE | 2019-09-25 14:58 | Surgery Progress Note ---
Surgery Progress Note Subjective Procedure Performed 1. tracheostomy 2 removal of left tube thoracostomy Additional Comments no acute events labs stable Objective Last 24 Hour Vital Signs Date Time Temp Pulse Resp B/P (MAP) Pulse Ox O2 Delivery O2 Flow Rate FiO2 09/25/19 12:37 63 20 99 Mechanical Ventilator 30 63 20 30 09/25/19 12:00 97.0 55 18 145/70 (95) 100 09/25/19 12:00 30 09/25/19 12:00 Mechanical Ventilator Mechanical Ventilator Mechanical Ventilator Mechanical Ventilator 09/25/19 11:42 59 09/25/19 09:47 67 177/83 09/25/19 08:38 177/83 09/25/19 08:00 Mechanical Ventilator Mechanical Ventilator Mechanical Ventilator Mechanical Ventilator 09/25/19 08:00 30 09/25/19 08:00 96.3 60 18 177/83 (114) 100 09/25/19 08:00 67 09/25/19 07:40 68 18 98 Mechanical Ventilator 30 66 18 30 09/25/19 06:30 154/77 09/25/19 04:43 69 20 30 09/25/19 04:11 65 09/25/19 04:00 Mechanical Ventilator Mechanical Ventilator Mechanical Ventilator Mechanical Ventilator 09/25/19 04:00 96.0 64 18 154/77 (102) 100 09/25/19 04:00 30 09/25/19 01:12 62 18 30 09/25/19 00:00 97.8 60 18 174/97 (122) 100 09/25/19 00:00 Mechanical Ventilator Mechanical Ventilator Mechanical Ventilator Mechanical Ventilator 09/25/19 00:00 67 09/25/19 00:00 174/97 09/25/19 00:00 30 09/24/19 22:35 67 18 100 Mechanical Ventilator 30 62 19 30 09/24/19 20:00 66 09/24/19 20:00 30 09/24/19 20:00 97.7 63 18 157/74 (101) 100 09/24/19 20:00 Mechanical Ventilator Mechanical Ventilator Mechanical Ventilator Mechanical Ventilator 09/24/19 19:59 61 19 100 Mechanical Ventilator 30 64 23 30 09/24/19 17:51 171/85 09/24/19 17:15 62 22 30 09/24/19 16:00 55 09/24/19 16:00 98.4 61 18 171/85 (113) 98 09/24/19 16:00 30 09/24/19 16:00 Mechanical Ventilator Mechanical Ventilator Mechanical Ventilator Mechanical Ventilator 09/24/19 15:55 60 18 100 Mechanical Ventilator 30 59 18 30 I&O Intake and Output 09/24/19 09/25/19 19:00 07:00 Intake Total 520 ml 500 ml Output Total 250 ml 150 ml Balance 270 ml 350 ml Intake Free Water 150 ml Tube Feeding 420 ml 350 ml Other 100 ml Output Urine Total 250 ml 150 ml # Bowel Movements 2 Dressing: saturated Wound: clean Cardiovascular: RSR Respiratory: clear, decreased breath sounds Abdomen: soft, non-tender, present bowel sounds Extremities: no tenderness, no cyanosis Laboratory Tests Test 09/24/19 16:00 09/25/19 06:11 Hepatitis B Surface Antigen Pending Hepatitis B Surface Antibody, Quant Pending Hepatitis C Antibody Pending White Blood Count 7.3 K/UL (4.8-10.8) Red Blood Count 3.25 M/UL (4.20-5.40) L Hemoglobin 9.7 G/DL (12.0-16.0) L Hematocrit 28.6 % (37.0-47.0) L Mean Corpuscular Volume 88 FL (80-99) Mean Corpuscular Hemoglobin 29.8 PG (27.0-31.0) Mean Corpuscular Hemoglobin Concent 33.9 G/DL (32.0-36.0) Red Cell Distribution Width 15.1 % (11.6-14.8) H Platelet Count 483 K/UL (150-450) H Mean Platelet Volume 5.2 FL (6.5-10.1) L Neutrophils (%) (Auto) 67.1 % (45.0-75.0) Lymphocytes (%) (Auto) 28.3 % (20.0-45.0) Monocytes (%) (Auto) 2.9 % (1.0-10.0) Eosinophils (%) (Auto) 1.2 % (0.0-3.0) Basophils (%) (Auto) 0.5 % (0.0-2.0) Sodium Level 133 MMOL/L (136-145) L Potassium Level 5.0 MMOL/L (3.5-5.1) Chloride Level 95 MMOL/L (98-107) L Carbon Dioxide Level 26 MMOL/L (21-32) Anion Gap 12 mmol/L (5-15) Blood Urea Nitrogen 119 mg/dL (7-18) H Creatinine 3.4 MG/DL (0.55-1.30) H Estimat Glomerular Filtration Rate 13.1 mL/min (>60) Glucose Level 92 MG/DL (74-106) Calcium Level 9.1 MG/DL (8.5-10.1) Phosphorus Level 6.1 MG/DL (2.5-4.9) H Magnesium Level 2.8 MG/DL (1.8-2.4) H Total Bilirubin 0.6 MG/DL (0.2-1.0) Gamma Glutamyl Transpeptidase 235 U/L (5-85) H Aspartate Amino Transf (AST/SGOT) 3771 U/L (15-37) H Alanine Aminotransferase (ALT/SGPT) 1108 U/L (12-78) H Alkaline Phosphatase 826 U/L (46-116) H Ammonia 22 umol/L (11-32) C-Reactive Protein, Quantitative 11.8 mg/dL (0.00-0.90) H Pro-B-Type Natriuretic Peptide > 40402 pg/mL (0-125) H Total Protein 7.7 G/DL (6.4-8.2) Albumin 2.5 G/DL (3.4-5.0) L Globulin 5.2 g/dL Albumin/Globulin Ratio 0.5 (1.0-2.7) L Assessment Post-op Diagnosis same Plan Problems: (1) Malnutrition Assessment & Plan: DAILY ESTIMATED NEEDS: Needs based on ESRD+ HD, underweight, wound/ 39.5kg 35-40 kcals/kg 9977-1026 total kcals 1.25-1.8 g protein/kg 49-71 g total protein 20-22 mL/kg 790-869 total fluid mLs NUTRITION DIAGNOSIS: * Increased kcal and protein needs r/t underweight status, HD needs, wuond healing as evidenced by pt is underweight per guidelines, ESRD, on HD, admitted non-blanching erythema wounds @ BL heels and sacrum * Swallowing difficulty R/T dysphagia as evidenced by CAD DESIGNER recommends temporary nonoral feeding at this time, s/p NGT insertion, on NGT feeding-> now s/p self removal, NPO. CURRENT TF:NPO PO DIET RECOMMENDATIONS: WHEN SAFE FOR ORAL DIET -> renal/ texture per CAD DESIGNER ENTERAL NUTRITION RECOMMENDATIONS: W/ GI access: Nepro @ 35ml/hr x 22 hrs to provide 770ml, 1386kcal, 62g prot, 560ml free water * W/ GI access, resume TF on Nepro * Initiate Nepro @ 15ml/hr x 6 hrs, advance 10ml q 4-6 hrs as tolerated to goal rate. * Hold 1 hour before and after Synthroid med * HOB over 30 degrees/ water flush per MD. ADDITIONAL RECOMMENDATIONS: 1) Calibrated bed scale wt for accurate CBW -> daily wt monitoring Per HD record: dry wt on 07/30=39.5kg (87lbs) 2) Wound care: (W/ GI access) add Nephorivte x 1 + Balta BID 3) Monitor NPO status: without GI access at this time, s/p pulling out NGT 4) Monitor for hypoglycemia while NPO 5) Monitor for continuity of HD (2) Septic arthritis Assessment & Plan: Pt presented on admission with generalized scaly rash . pt noted to be restless and scratching at skin. Bleeding from oral mucosa noted. Joint deformity noted to R shoulder. Surgical incision approximated with 11 sutures. Erythema but no exudate,or elevation in skin temp at site of incision. Historical incision R hip that is tunneled.Small amt seropurulent exudate noted. Periwound is erythematous,but no elevation in skin temp noted. No odor noted. Non-blanching erythema noted to sacrum. Perianal area is erythematous and excoriated. L heel is boggy with non-blanching erythema. R heel is soft with non-blanching erythema. No evidence of skin breakdown to all other bony prominences. Tx.plan: Cover R shoulder with Drsg and change daily and prn. Cleanse R hip wound with Saline. Apply Therahoney.Apply Cavilon Skin Barrier periwound. Cover with Optifoam drsg. Change every 3 days and prn. Apply Moisture Barrier Paste to perianal area and buttocks. Cover Sacrum with Optifoam drsg. Change every 3 days and prn. Apply Cavilon Skin Barrier to both heels. Cover each heel with Optifoam drsg. Change every 7 days and prn. APM/ELVIA Mattress overlay. Reposition at least every 2hours or as tolerated. Off-load heels with pillow. HD cath necessary HD as renal likely will need intubation 19 x 11 x 11 mm hypoechoic area in the liver adjacent to the gallbladder fossa. Although location is typical for area of focal sparing in a fatty liver, there are no findings to indicate fatty liver and this is a new finding since fairly recent previous exam. Therefore the possibility of a process such as small abscess should be considered. Atrophic echogenic kidneys Negative for gallstones or dilated bile ducts (3) Wound, open, hip or thigh with complication Assessment & Plan: slow healing will need nutritional optimization difficult ng tube peg when stable sutures removed from right shoulder comfortable wean vent may need trach (4) Abscess of right hip (5) possible septic arthritis (6) Renal failure (ARF), acute on chronic Assessment & Plan: cont HD will need tunneled cath placement okay to use fem line for now but will need change soon. line monitored and clean dressings going well (7) Pneumonia Assessment & Plan: intubated on vent support not tolerating weaning may need trach hemothorax likely after thoracentesis Chest CT noted Left chest tube placed With plan for trach chest tube can be considered but overall prognosis is very poor s/p trach left chest tub eout cxr noted and okay downgrade left pleural effusion dressings saturated will need to monitor. may need another chest tube as may not heal well on left side Anasarca, with as mentioned above diffuse edema of the soft tissues, trace ascites, and bilateral pleural effusions No hepatic abnormality to correlate with suspected small pericholecystic lesion in the liver described on recent sonogram. The lesion may be occult on noncontrast CT, may have been artifactual or may have resolved in the interim. Consider repeat sonography in a few days to assess progression No definite acute abdominal process otherwise Improved but still sizable left pleural effusion with minimal residual hemoperitoneum since prior CT scan of 09/01/2019. There is near complete atelectasis of the left lower lobe. There is a small right pleural effusion with atelectatic changes of the right lower lobe and right perihilar dense consolidation. These appear improved since a prior CT of 09/01/2019 Increased crazy paving type opacity within the right middle lobe since previous August [address], may reflect an area of increasing infiltrate, versus focal edema. There is also some dense consolidation of the perihilar right lower lobe which is improved since the previous August 31 CT Right groin temporary dialysis catheter in good position Atrophic kidneys, consistent with known history of chronic renal disease L2 compression fracture deformity, and advanced degenerative changes of the L2- L3 disc. Similar to prior study Marroquin catheter hold on repeat chest tube Camilo James Sep 25, 2019 14:58
[2019-09-25 16:00] VITALS: BP 159/82
[2019-09-25 20:00] VITALS: BP 147/68
[2019-09-25] MEDS: Dyna-Hex 2% Top Sol 2oz TOPIC SCH (21:13)
[2019-09-26] VITALS: BP 158/77
[2019-09-26] MEDS: Albuterol/Ipratropium 3ml neb HHN SCH ×5 (02:16→19:40)
--- NOTE | 2019-09-26 03:14 | Progress Note ---
DATE: 09/25/2019 CARDIOLOGY PROGRESS NOTE SUBJECTIVE: Blood pressure parameters are labile and increased. Hydralazine has been discontinued as it may be linked to her rise in liver function studies. She remains on ventilator support via trach. PHYSICAL EXAMINATION: VITAL SIGNS: Blood pressure 159/83, pulse 67, respirations 21, afebrile. LUNGS: Thin secretions. Bilateral breath sounds. CARDIAC: Regular rhythm and rate. Normal S1, S2. ABDOMEN: Soft. EXTREMITIES: Trace edema. IMPRESSION: Persisting transaminitis, otherwise condition unchanged. PLAN: 1. Amlodipine added. 2. Hydralazine discontinued. 3. Needs additional ultrafiltration with hemodialysis. 4. Continue weaning efforts and monitoring of hepatic function. Abel Stubbs M.D. DR: BOOM JOB#: [id number] CC:
[2019-09-26 04:00] VITALS: BP 147/68
[2019-09-26 05:45] LABS: BASOPHILS % (AUTO) 0.8 % (0.0-2.0); EOSINOPHILS % (AUTO) 1.4 % (0.0-3.0); HEMATOCRIT 24.1 % (37.0-47.0); HEMOGLOBIN 8.3 G/DL (12.0-16.0); LYMPHOCYTES % (AUTO) 20.3 % (20.0-45.0); MEAN CORPUSCULAR VOLUME 88 FL (80-99); MONOCYTES % (AUTO) 3.6 % (1.0-10.0); PLATELET COUNT 427 K/UL (150-450); RED BLOOD COUNT 2.74 M/UL (4.20-5.40); RED CELL DISTRIBUTION WIDTH 14.9 % (11.6-14.8); WHITE BLOOD COUNT 10.3 K/UL (4.8-10.8)
[2019-09-26 06:02] LABS: ALANINE AMINOTRANSFERASE 541 U/L (12-78); ALBUMIN 2.2 G/DL (3.4-5.0); ALBUMIN/GLOBULIN RATIO 0.5 (1.0-2.7); ALKALINE PHOSPHATASE 497 U/L (46-116); ASPARTATE AMINO TRANSFERASE 674 U/L (15-37); BILIRUBIN,TOTAL 0.5 MG/DL (0.2-1.0); BLOOD UREA NITROGEN 130 mg/dL (7-18); CALCIUM 8.1 MG/DL (8.5-10.1); CARBON DIOXIDE 20 MMOL/L (21-32); CHLORIDE 98 MMOL/L (98-107); CREATININE 3.7 MG/DL (0.55-1.30); POTASSIUM 4.7 MMOL/L (3.5-5.1); SODIUM 135 MMOL/L (136-145)
[2019-09-26] MEDS: Renvela 800mg Pkt NG SCH ×3 (06:03→23:01)
[2019-09-26] MEDS: Levothyroxine 125mcg tab ORAL SCH (06:03)
[2019-09-26 06:07] LABS: PHOSPHORUS 6.3 MG/DL (2.5-4.9)
--- NOTE | 2019-09-26 07:53 | General Progress Note ---
Assessment/Plan Problem List: (1) Failure to thrive (0-17) ICD Codes: R62.51 - Failure to thrive (0-17) SNOMED: 391276079 (2) Hypertensive kidney disease ICD Codes: I12.9 - Hypertensive chronic kidney disease with stage 1 through stage 4 chronic kidney disease, or unspecified chronic kidney disease SNOMED: 87788872 (3) Pneumonia ICD Codes: J18.9 - Pneumonia, unspecified organism SNOMED: 637548164 Qualifiers: Qualified Codes: J18.9 - Pneumonia, unspecified organism (4) ESRD (end stage renal disease) ICD Codes: N18.6 - End stage renal disease SNOMED: 91931161 (5) Septic arthritis ICD Codes: M00.9 - Pyogenic arthritis, unspecified SNOMED: 806524080 (6) Thrombocytopenia ICD Codes: D69.6 - Thrombocytopenia, unspecified SNOMED: 090099312 (7) Hypotension ICD Codes: I95.9 - Hypotension, unspecified SNOMED: 82904706 Qualifiers: Qualified Codes: I95.3 - Hypotension of hemodialysis (8) Malnutrition ICD Codes: E46 - Unspecified protein-calorie malnutrition SNOMED: 55220719 Status: stable, not improved, unchanged, deteriorating Assessment/Plan: Continue vent support. Wean as able. Will discuss with pulmonary if patient could be weaned to trach collar.Suctioning and pulmonary toilet. Continue G-tube feedings. Monitor residuals Continue current blood pressure regimen with close monitoring of blood pressure. Hemodialysis with ultrafiltration per nephrology. Turn every 2 hours and good skin care. monitor labs/lfts hep panel dc hydralazine(per GI can cause transaminitis) Discharge planning in progress Subjective ROS Limited/Unobtainable: Yes Constitutional: Reports: malaise, weakness HEENT: Reports: no symptoms Cardiovascular: Reports: no symptoms Respiratory: Reports: sputum Gastrointestinal/Abdominal: Reports: difficulty swallowing Genitourinary: Reports: no symptoms Neurologic/Psychiatric: Reports: anxiety, emotional problems Endocrine: Reports: no symptoms Hematologic/Lymphatic: Reports: no symptoms Allergies: Coded Allergies: VANCOMYCIN (Unverified Allergy, Unknown, 08/02/19) All Systems: reviewed and negative except above Subjective There were no overnight events. Patient remained stable on the ventilator. She occasionally opens her eyes. Tolerating feedings. LFTS trending down. Objective Last 24 Hour Vital Signs Date Time Temp Pulse Resp B/P (MAP) Pulse Ox O2 Delivery O2 Flow Rate FiO2 09/26/19 04:00 30 09/26/19 04:00 97.2 69 20 147/68 (94) 100 09/26/19 04:00 Mechanical Ventilator Mechanical Ventilator Mechanical Ventilator Mechanical Ventilator 09/26/19 03:38 87 09/26/19 02:16 75 18 100 Mechanical Ventilator 30 75 18 30 09/26/19 00:00 30 09/26/19 00:00 Mechanical Ventilator Mechanical Ventilator Mechanical Ventilator Mechanical Ventilator 09/26/19 00:00 98.2 66 18 158/77 (104) 100 09/25/19 23:27 73 09/25/19 23:16 69 19 100 Mechanical Ventilator 30 71 18 30 09/25/19 20:18 74 18 100 Mechanical Ventilator 30 73 19 30 09/25/19 20:18 74 18 100 Mechanical Ventilator 30 09/25/19 20:00 Mechanical Ventilator Mechanical Ventilator Mechanical Ventilator Mechanical Ventilator 09/25/19 20:00 97.1 69 18 147/68 (94) 100 09/25/19 20:00 30 09/25/19 19:38 65 09/25/19 18:20 67 159/82 09/25/19 17:20 67 21 30 09/25/19 16:00 Mechanical Ventilator Mechanical Ventilator Mechanical Ventilator Mechanical Ventilator 09/25/19 16:00 30 09/25/19 16:00 97.0 63 18 159/82 (107) 100 09/25/19 15:31 63 09/25/19 15:25 65 19 100 Mechanical Ventilator 30 65 22 30 09/25/19 12:37 63 20 99 Mechanical Ventilator 30 63 20 30 09/25/19 12:00 97.0 55 18 145/70 (95) 100 09/25/19 12:00 30 09/25/19 12:00 Mechanical Ventilator Mechanical Ventilator Mechanical Ventilator Mechanical Ventilator 09/25/19 11:42 59 09/25/19 09:47 67 177/83 09/25/19 08:38 177/83 09/25/19 08:00 Mechanical Ventilator Mechanical Ventilator Mechanical Ventilator Mechanical Ventilator 09/25/19 08:00 30 09/25/19 08:00 96.3 60 18 177/83 (114) 100 09/25/19 08:00 67 Intake and Output 09/25/19 09/26/19 19:00 07:00 Intake Total 570 ml 465 ml Output Total 300 ml Balance 570 ml 165 ml Intake Free Water 150 ml 150 ml Tube Feeding 420 ml 315 ml Output Urine Total 300 ml # Bowel Movements 1 Laboratory Tests 09/26/19 04:55: White Blood Count 10.3, Red Blood Count 2.74L, Hemoglobin 8.3L, Hematocrit 24.1L , Mean Corpuscular Volume 88, Mean Corpuscular Hemoglobin 30.1, Mean Corpuscular Hemoglobin Concent 34.3, Red Cell Distribution Width 14.9H, Platelet Count 427, Mean Platelet Volume 5.0L, Neutrophils (%) (Auto) 74.0, Lymphocytes (%) (Auto) 20.3, Monocytes (%) (Auto) 3.6, Eosinophils (%) (Auto) 1.4, Basophils (%) (Auto) 0.8, Sodium Level 135L, Potassium Level 4.7, Chloride Level 98, Carbon Dioxide Level 20L, Blood Urea Nitrogen 130H, Creatinine 3.7H, Estimat Glomerular Filtration Rate 11.8, Glucose Level 116H, Calcium Level 8.1L , Phosphorus Level 6.3H, Magnesium Level 2.5H, Total Bilirubin 0.5, Gamma Glutamyl Transpeptidase 130H, Aspartate Amino Transf (AST/SGOT) 674H, Alanine Aminotransferase (ALT/SGPT) 541H, Alkaline Phosphatase 497H, Ammonia 41H, Total Protein 6.7, Albumin 2.2L, Globulin 4.5, Albumin/Globulin Ratio 0.5L Height (Feet): 5 Height (Inches): 4.00 Weight (Pounds): 112 Objective General Appearance: WD/WN, awake. looks around. no distress. thin and frail Neck: supple +trach Cardiovascular: normal rate Respiratory/Chest: rhonchi - bilaterally Abdomen: normal bowel sounds, non tender, soft, no organomegaly Edema: no edema noted Arm (L), no edema noted Arm (R), no edema noted Leg (L), no edema noted Leg (R), no edema noted Pedal (L), no edema noted Pedal (R), no edema noted Generalized Neurologic: disoriented, aphasia Skin: +excoriations Nate Beltran MD Sep 26, 2019 07:53
[2019-09-26 08:00] VITALS: BP 153/81
--- NOTE | 2019-09-26 09:07 | Critical Care Progress Note ---
Assessment/Plan Assessment/Plan respiratory failure hypoxemia chronic renal failure toxic met encephalopathy severe protein calorie malnutrition cachexia left lung whiteout/collapse, anemia pulmonary edema + pleural effusion s/p CT placement and removal s/p trach hypernatremia PLAN trach care as is repeat imaging this week care noted and reviewed monitor for fluid retention reviewed care and continue to monitor weaning not successful prognosis poor overall for change keep negative and monitor osmotic pressures fully dependent for now close follow up discussed elevated head and monitor ROM watch fluid status and keep negative nutrition and monitor residuals isolation reviewed off load as able and monitor skin exam ROM as able and monitor contractures prognosis poor for recovery will need LTAC impression, plan, and exam edited and reviewed in detail care discussed with marine rigger - Subjective Interval Events: all noted care reviewed on oxygen on vent ROS Limited/Unobtainable: Yes Condition: critical EKG Rhythm: Sinus Rhythm Residuals: minimal Tube Feeding Tolerated: yes I&O: Intake and Output 09/25/19 09/26/19 19:00 07:00 Intake Total 570 ml 465 ml Output Total 300 ml Balance 570 ml 165 ml Intake Free Water 150 ml 150 ml Tube Feeding 420 ml 315 ml Output Urine Total 300 ml # Bowel Movements 1 Critical Care - Objective ET-Tube: 7.0 ET Position: 19 Last 24 Hour Vital Signs Date Time Temp Pulse Resp B/P (MAP) Pulse Ox O2 Delivery O2 Flow Rate FiO2 09/26/19 07:15 71 19 100 Mechanical Ventilator 30 79 18 30 09/26/19 04:00 30 09/26/19 04:00 97.2 69 20 147/68 (94) 100 09/26/19 04:00 Mechanical Ventilator Mechanical Ventilator Mechanical Ventilator Mechanical Ventilator 09/26/19 03:38 87 09/26/19 02:16 75 18 100 Mechanical Ventilator 30 75 18 30 09/26/19 00:00 30 09/26/19 00:00 Mechanical Ventilator Mechanical Ventilator Mechanical Ventilator Mechanical Ventilator 09/26/19 00:00 98.2 66 18 158/77 (104) 100 09/25/19 23:27 73 09/25/19 23:16 69 19 100 Mechanical Ventilator 30 71 18 30 09/25/19 20:18 74 18 100 Mechanical Ventilator 30 73 19 30 09/25/19 20:18 74 18 100 Mechanical Ventilator 30 09/25/19 20:00 Mechanical Ventilator Mechanical Ventilator Mechanical Ventilator Mechanical Ventilator 09/25/19 20:00 97.1 69 18 147/68 (94) 100 09/25/19 20:00 30 09/25/19 19:38 65 09/25/19 18:20 67 159/82 09/25/19 17:20 67 21 30 09/25/19 16:00 Mechanical Ventilator Mechanical Ventilator Mechanical Ventilator Mechanical Ventilator 09/25/19 16:00 30 09/25/19 16:00 97.0 63 18 159/82 (107) 100 09/25/19 15:31 63 09/25/19 15:25 65 19 100 Mechanical Ventilator 30 65 22 30 09/25/19 12:37 63 20 99 Mechanical Ventilator 30 63 20 30 09/25/19 12:00 97.0 55 18 145/70 (95) 100 09/25/19 12:00 30 09/25/19 12:00 Mechanical Ventilator Mechanical Ventilator Mechanical Ventilator Mechanical Ventilator 09/25/19 11:42 59 09/25/19 09:47 67 177/83 Labs: Labs Test 09/24/19 05:48 09/24/19 16:00 09/25/19 06:11 09/26/19 04:55 White Blood Count 10.7 K/UL (4.8-10.8) 7.3 K/UL (4.8-10.8) 10.3 K/UL (4.8-10.8) Red Blood Count 3.46 M/UL (4.20-5.40) 3.25 M/UL (4.20-5.40) 2.74 M/UL (4.20-5.40) Hemoglobin 10.3 G/DL (12.0-16.0) 9.7 G/DL (12.0-16.0) 8.3 G/DL (12.0-16.0) Hematocrit 30.5 % (37.0-47.0) 28.6 % (37.0-47.0) 24.1 % (37.0-47.0) Mean Corpuscular Volume 88 FL (80-99) 88 FL (80-99) 88 FL (80-99) Mean Corpuscular Hemoglobin 29.9 PG (27.0-31.0) 29.8 PG (27.0-31.0) 30.1 PG (27.0-31.0) Mean Corpuscular Hemoglobin Concent 33.9 G/DL (32.0-36.0) 33.9 G/DL (32.0-36.0) 34.3 G/DL (32.0-36.0) Red Cell Distribution Width 14.8 % (11.6-14.8) 15.1 % (11.6-14.8) 14.9 % (11.6-14.8) Platelet Count 475 K/UL (150-450) 483 K/UL (150-450) 427 K/UL (150-450) Mean Platelet Volume 5.3 FL (6.5-10.1) 5.2 FL (6.5-10.1) 5.0 FL (6.5-10.1) Neutrophils (%) (Auto) 69.5 % (45.0-75.0) 67.1 % (45.0-75.0) 74.0 % (45.0-75.0) Lymphocytes (%) (Auto) 25.7 % (20.0-45.0) 28.3 % (20.0-45.0) 20.3 % (20.0-45.0) Monocytes (%) (Auto) 3.7 % (1.0-10.0) 2.9 % (1.0-10.0) 3.6 % (1.0-10.0) Eosinophils (%) (Auto) 0.6 % (0.0-3.0) 1.2 % (0.0-3.0) 1.4 % (0.0-3.0) Basophils (%) (Auto) 0.6 % (0.0-2.0) 0.5 % (0.0-2.0) 0.8 % (0.0-2.0) Sodium Level 133 MMOL/L (136-145) 133 MMOL/L (136-145) 135 MMOL/L (136-145) Potassium Level 4.3 MMOL/L (3.5-5.1) 5.0 MMOL/L (3.5-5.1) 4.7 MMOL/L (3.5-5.1) Chloride Level 95 MMOL/L (98-107) 95 MMOL/L (98-107) 98 MMOL/L (98-107) Carbon Dioxide Level 24 MMOL/L (21-32) 26 MMOL/L (21-32) 20 MMOL/L (21-32) Anion Gap 14 mmol/L (5-15) 12 mmol/L (5-15) Blood Urea Nitrogen 100 mg/dL (7-18) 119 mg/dL (7-18) 130 mg/dL (7-18) Creatinine 3.3 MG/DL (0.55-1.30) 3.4 MG/DL (0.55-1.30) 3.7 MG/DL (0.55-1.30) Estimat Glomerular Filtration Rate 13.5 mL/min (>60) 13.1 mL/min (>60) 11.8 mL/min (>60) Glucose Level 102 MG/DL (74-106) 92 MG/DL (74-106) 116 MG/DL (74-106) Calcium Level 9.0 MG/DL (8.5-10.1) 9.1 MG/DL (8.5-10.1) 8.1 MG/DL (8.5-10.1) Phosphorus Level 5.1 MG/DL (2.5-4.9) 6.1 MG/DL (2.5-4.9) 6.3 MG/DL (2.5-4.9) Magnesium Level 2.8 MG/DL (1.8-2.4) 2.8 MG/DL (1.8-2.4) 2.5 MG/DL (1.8-2.4) Total Bilirubin 0.5 MG/DL (0.2-1.0) 0.6 MG/DL (0.2-1.0) 0.5 MG/DL (0.2-1.0) Aspartate Amino Transf (AST/SGOT) 1783 U/L (15-37) 3771 U/L (15-37) 674 U/L (15-37) Alanine Aminotransferase (ALT/SGPT) 622 U/L (12-78) 1108 U/L (12-78) 541 U/L (12-78) Alkaline Phosphatase 525 U/L (46-116) 826 U/L (46-116) 497 U/L (46-116) C-Reactive Protein, Quantitative 12.8 mg/dL (0.00-0.90) 11.8 mg/dL (0.00-0.90) Pro-B-Type Natriuretic Peptide > 43577 pg/mL (0-125) > 69166 pg/mL (0-125) Total Protein 7.4 G/DL (6.4-8.2) 7.7 G/DL (6.4-8.2) 6.7 G/DL (6.4-8.2) Albumin 2.4 G/DL (3.4-5.0) 2.5 G/DL (3.4-5.0) 2.2 G/DL (3.4-5.0) Globulin 5.0 g/dL 5.2 g/dL 4.5 g/dL Albumin/Globulin Ratio 0.5 (1.0-2.7) 0.5 (1.0-2.7) 0.5 (1.0-2.7) Gamma Glutamyl Transpeptidase 235 U/L (5-85) 130 U/L (5-85) Ammonia 22 umol/L (11-32) 41 umol/L (11-32) Objective: WDWN NAD trach in place reduced breath sounds left greater right; no rhonchi [id number] without MRG NABS nontender no HSM no CCE contractures feeding tube in place no distention reduced LOC and weak nonfocal cachectic reviewed and edited Accucheck: 89 Malcolm Cruz MD Sep 26, 2019 09:07
--- NOTE | 2019-09-26 09:13 | General Progress Note ---
Assessment/Plan Status: stable, not improved, unchanged, deteriorating Assessment/Plan: Assessment - Severe ulcerative esophagitis - mild elevation in LFT, Hepatitis B/C negative --> now sudden rise - ? related to new 1.9 cm mass near GB - ? autoimmune / high ESR - abnormal liver on CT - ? chronic disease / fibrosis - Resp failure - trach - s/p recent Chest tube and removal - Renal failure - aspiration risk --> s/p PEG - anemia - bradycardia - Poor prognosis Recommendations - CT reviewed -? shock liver. Repeat in am>>> improving - check autoimmune markers - pending>>> neg JOLIE - check AFP - GT care - water flushes - elevate HOB - monitor H&H -add ppi -check stool ob - vent Subjective ROS Limited/Unobtainable: No Allergies: Coded Allergies: VANCOMYCIN (Unverified Allergy, Unknown, 08/02/19) Subjective s/p blood transfusion Objective Last 24 Hour Vital Signs Date Time Temp Pulse Resp B/P (MAP) Pulse Ox O2 Delivery O2 Flow Rate FiO2 09/26/19 07:55 82 09/26/19 07:15 71 19 100 Mechanical Ventilator 30 79 18 30 09/26/19 04:00 30 09/26/19 04:00 97.2 69 20 147/68 (94) 100 09/26/19 04:00 Mechanical Ventilator Mechanical Ventilator Mechanical Ventilator Mechanical Ventilator 09/26/19 03:38 87 09/26/19 02:16 75 18 100 Mechanical Ventilator 30 75 18 30 09/26/19 00:00 30 09/26/19 00:00 Mechanical Ventilator Mechanical Ventilator Mechanical Ventilator Mechanical Ventilator 09/26/19 00:00 98.2 66 18 158/77 (104) 100 09/25/19 23:27 73 09/25/19 23:16 69 19 100 Mechanical Ventilator 30 71 18 30 09/25/19 20:18 74 18 100 Mechanical Ventilator 30 73 19 30 09/25/19 20:18 74 18 100 Mechanical Ventilator 30 09/25/19 20:00 Mechanical Ventilator Mechanical Ventilator Mechanical Ventilator Mechanical Ventilator 09/25/19 20:00 97.1 69 18 147/68 (94) 100 09/25/19 20:00 30 09/25/19 19:38 65 09/25/19 18:20 67 159/82 09/25/19 17:20 67 21 30 09/25/19 16:00 Mechanical Ventilator Mechanical Ventilator Mechanical Ventilator Mechanical Ventilator 09/25/19 16:00 30 09/25/19 16:00 97.0 63 18 159/82 (107) 100 09/25/19 15:31 63 09/25/19 15:25 65 19 100 Mechanical Ventilator 30 65 22 30 09/25/19 12:37 63 20 99 Mechanical Ventilator 30 63 20 30 09/25/19 12:00 97.0 55 18 145/70 (95) 100 09/25/19 12:00 30 09/25/19 12:00 Mechanical Ventilator Mechanical Ventilator Mechanical Ventilator Mechanical Ventilator 09/25/19 11:42 59 09/25/19 09:47 67 177/83 Intake and Output 09/25/19 09/26/19 19:00 07:00 Intake Total 570 ml 465 ml Output Total 300 ml Balance 570 ml 165 ml Intake Free Water 150 ml 150 ml Tube Feeding 420 ml 315 ml Output Urine Total 300 ml # Bowel Movements 1 Laboratory Tests 09/26/19 04:55: White Blood Count 10.3, Red Blood Count 2.74L, Hemoglobin 8.3L, Hematocrit 24.1L , Mean Corpuscular Volume 88, Mean Corpuscular Hemoglobin 30.1, Mean Corpuscular Hemoglobin Concent 34.3, Red Cell Distribution Width 14.9H, Platelet Count 427, Mean Platelet Volume 5.0L, Neutrophils (%) (Auto) 74.0, Lymphocytes (%) (Auto) 20.3, Monocytes (%) (Auto) 3.6, Eosinophils (%) (Auto) 1.4, Basophils (%) (Auto) 0.8, Sodium Level 135L, Potassium Level 4.7, Chloride Level 98, Carbon Dioxide Level 20L, Blood Urea Nitrogen 130H, Creatinine 3.7H, Estimat Glomerular Filtration Rate 11.8, Glucose Level 116H, Calcium Level 8.1L , Phosphorus Level 6.3H, Magnesium Level 2.5H, Total Bilirubin 0.5, Gamma Glutamyl Transpeptidase 130H, Aspartate Amino Transf (AST/SGOT) 674H, Alanine Aminotransferase (ALT/SGPT) 541H, Alkaline Phosphatase 497H, Ammonia 41H, Total Protein 6.7, Albumin 2.2L, Globulin 4.5, Albumin/Globulin Ratio 0.5L Height (Feet): 5 Height (Inches): 4.00 Weight (Pounds): 112 General Appearance: no apparent distress EENT: normal ENT inspection Neck: normal inspection Cardiovascular: normal rate Respiratory/Chest: decreased breath sounds Abdomen: normal bowel sounds, non tender, soft Extremities: non-tender Kenny Rudolph MD Sep 26, 2019 09:13
[2019-09-26] MEDS: Metamucil Pkt ORAL SCH (09:26)
--- NOTE | 2019-09-26 11:49 | Infectious Diseases Prog Note ---
Assessment/Plan Assessment/Plan antibiotics : none A 1. jarad albicans fungemia s/p rx 2. right shoulder septic arthritis with staph aureus s/p rx 3. pleural effusion 4. thrombocytopenia resolved 7. diabetes mellitus 8. hypertension 9. respiratory failure P 1. observe off antibiotics Subjective ROS Limited/Unobtainable: Yes Allergies: Coded Allergies: VANCOMYCIN (Unverified Allergy, Unknown, 08/02/19) Objective Vital Signs Last 24 Hour Vital Signs Date Time Temp Pulse Resp B/P (MAP) Pulse Ox O2 Delivery O2 Flow Rate FiO2 09/26/19 09:26 100 09/26/19 09:26 85 153/81 09/26/19 09:26 72 18 Mechanical Ventilator 30 09/26/19 07:55 82 09/26/19 07:15 71 19 100 Mechanical Ventilator 30 79 18 30 09/26/19 04:00 30 09/26/19 04:00 97.2 69 20 147/68 (94) 100 09/26/19 04:00 Mechanical Ventilator Mechanical Ventilator Mechanical Ventilator Mechanical Ventilator 09/26/19 03:38 87 09/26/19 02:16 75 18 100 Mechanical Ventilator 30 75 18 30 09/26/19 00:00 30 09/26/19 00:00 Mechanical Ventilator Mechanical Ventilator Mechanical Ventilator Mechanical Ventilator 09/26/19 00:00 98.2 66 18 158/77 (104) 100 09/25/19 23:27 73 09/25/19 23:16 69 19 100 Mechanical Ventilator 30 71 18 30 09/25/19 20:18 74 18 100 Mechanical Ventilator 30 73 19 30 09/25/19 20:18 74 18 100 Mechanical Ventilator 30 09/25/19 20:00 Mechanical Ventilator Mechanical Ventilator Mechanical Ventilator Mechanical Ventilator 09/25/19 20:00 97.1 69 18 147/68 (94) 100 09/25/19 20:00 30 09/25/19 19:38 65 09/25/19 18:20 67 159/82 09/25/19 17:20 67 21 30 09/25/19 16:00 Mechanical Ventilator Mechanical Ventilator Mechanical Ventilator Mechanical Ventilator 09/25/19 16:00 30 09/25/19 16:00 97.0 63 18 159/82 (107) 100 09/25/19 15:31 63 09/25/19 15:25 65 19 100 Mechanical Ventilator 30 65 22 30 09/25/19 12:37 63 20 99 Mechanical Ventilator 30 63 20 30 09/25/19 12:00 97.0 55 18 145/70 (95) 100 09/25/19 12:00 30 09/25/19 12:00 Mechanical Ventilator Mechanical Ventilator Mechanical Ventilator Mechanical Ventilator Height (Feet): 5 Height (Inches): 4.00 Weight (Pounds): 112 HEENT: status post trach Respiratory/Chest: lungs clear Cardiovascular: normal rate, regular rhythm, no gallop/murmur Abdomen: soft, non tender, other - GT Extremities: no edema, other - right groin catheter Laboratory Tests Test 09/26/19 04:55 White Blood Count 10.3 K/UL (4.8-10.8) Red Blood Count 2.74 M/UL (4.20-5.40) L Hemoglobin 8.3 G/DL (12.0-16.0) L Hematocrit 24.1 % (37.0-47.0) L Mean Corpuscular Volume 88 FL (80-99) Mean Corpuscular Hemoglobin 30.1 PG (27.0-31.0) Mean Corpuscular Hemoglobin Concent 34.3 G/DL (32.0-36.0) Red Cell Distribution Width 14.9 % (11.6-14.8) H Platelet Count 427 K/UL (150-450) Mean Platelet Volume 5.0 FL (6.5-10.1) L Neutrophils (%) (Auto) 74.0 % (45.0-75.0) Lymphocytes (%) (Auto) 20.3 % (20.0-45.0) Monocytes (%) (Auto) 3.6 % (1.0-10.0) Eosinophils (%) (Auto) 1.4 % (0.0-3.0) Basophils (%) (Auto) 0.8 % (0.0-2.0) Sodium Level 135 MMOL/L (136-145) L Potassium Level 4.7 MMOL/L (3.5-5.1) Chloride Level 98 MMOL/L (98-107) Carbon Dioxide Level 20 MMOL/L (21-32) L Blood Urea Nitrogen 130 mg/dL (7-18) H Creatinine 3.7 MG/DL (0.55-1.30) H Estimat Glomerular Filtration Rate 11.8 mL/min (>60) Glucose Level 116 MG/DL (74-106) H Calcium Level 8.1 MG/DL (8.5-10.1) L Phosphorus Level 6.3 MG/DL (2.5-4.9) H Magnesium Level 2.5 MG/DL (1.8-2.4) H Total Bilirubin 0.5 MG/DL (0.2-1.0) Gamma Glutamyl Transpeptidase 130 U/L (5-85) H Aspartate Amino Transf (AST/SGOT) 674 U/L (15-37) H Alanine Aminotransferase (ALT/SGPT) 541 U/L (12-78) H Alkaline Phosphatase 497 U/L (46-116) H Ammonia 41 umol/L (11-32) H Total Protein 6.7 G/DL (6.4-8.2) Albumin 2.2 G/DL (3.4-5.0) L Globulin 4.5 g/dL Albumin/Globulin Ratio 0.5 (1.0-2.7) L Current Medications Medications (Trade) Dose Ordered Sig/Javier Route PRN Reason Start Time Stop Time Status Last Admin Dose Admin Acetylcysteine (Mucomyst) 100 mg Q4HRT N 08/31/19 19:00 11/29/19 18:59 09/26/19 10:53 Albuterol/ Ipratropium (Albuterol/ Ipratropium) 3 ml Q4HRT N 09/22/19 15:00 12/09/19 14:59 09/26/19 10:52 Amlodipine Besylate (Norvasc) 5 mg BID ORAL 09/25/19 09:00 10/25/19 08:59 09/26/19 09:26 Chlorhexidine Gluconate (Nae-Hex 2%) 1 applic DAILY@1999 TOPIC 09/17/19 20:00 12/16/19 19:59 09/25/19 21:13 Clonidine HCl (Catapres Tab) 0.1 mg Q4H PRN ORAL For High Blood Pressure 09/22/19 21:00 12/21/19 20:59 09/25/19 08:38 Dextrose (Dextrose 50%) 25 ml Q30M PRN IV Hypoglycemia 09/02/19 06:15 12/01/19 06:14 09/04/19 12:11 Dextrose (Dextrose 50%) 50 ml Q30M PRN IV Hypoglycemia 09/02/19 06:15 12/01/19 06:14 Lansoprazole (Prevacid) 30 mg DAILY GT 09/27/19 09:00 10/27/19 08:59 Levothyroxine Sodium (Synthroid) 125 mcg DAILY@0630 ORAL 09/22/19 06:30 10/22/19 06:29 09/26/19 06:03 Psyllium Hydrophilic Mucilloid (Metamucil) 1 pkt DAILY ORAL 09/22/19 15:00 10/22/19 14:59 09/26/19 09:26 Sevelamer Carbonate (Renvela) 800 mg Q8HR NG 09/25/19 14:00 12/24/19 13:59 09/26/19 06:03 Melissa Solares MD Sep 26, 2019 11:49
--- NOTE | 2019-09-26 11:59 | General Progress Note ---
Assessment/Plan Problem List: (1) Hypothyroid ICD Codes: E03.9 - Hypothyroidism, unspecified SNOMED: 74370910 (2) ESRD (end stage renal disease) on dialysis ICD Codes: N18.6 - End stage renal disease; Z99.2 - Dependence on renal dialysis SNOMED: 901472334 (3) Hypotension ICD Codes: I95.9 - Hypotension, unspecified SNOMED: 68943287 Qualifiers: Qualified Codes: I95.3 - Hypotension of hemodialysis (4) Pneumonia ICD Codes: J18.9 - Pneumonia, unspecified organism SNOMED: 845432750 Qualifiers: Qualified Codes: J18.9 - Pneumonia, unspecified organism (5) Diabetes mellitus ICD Codes: E11.9 - Type 2 diabetes mellitus without complications SNOMED: 95910251 Status: stable, not improved, unchanged, deteriorating Assessment/Plan: continue Levothyroxine tablet 125 mcg daily repeat TSH, free 4 tomorrow continue glucose monitoring without insulin coverage hypoglycemia protocol in order Subjective ROS Limited/Unobtainable: Yes Allergies: Coded Allergies: VANCOMYCIN (Unverified Allergy, Unknown, 08/02/19) Subjective events noted interval notes reviewed glucose values are stable Item Value Date Time Glucose Level 116 MG/DL H 09/26/19 0455 Glucose Level 92 MG/DL 09/25/19 0611 Objective Last 24 Hour Vital Signs Date Time Temp Pulse Resp B/P (MAP) Pulse Ox O2 Delivery O2 Flow Rate FiO2 09/26/19 09:26 100 09/26/19 09:26 85 153/81 09/26/19 09:26 72 18 Mechanical Ventilator 30 09/26/19 07:55 82 09/26/19 07:15 71 19 100 Mechanical Ventilator 30 79 18 30 09/26/19 04:00 30 09/26/19 04:00 97.2 69 20 147/68 (94) 100 09/26/19 04:00 Mechanical Ventilator Mechanical Ventilator Mechanical Ventilator Mechanical Ventilator 09/26/19 03:38 87 09/26/19 02:16 75 18 100 Mechanical Ventilator 30 75 18 30 09/26/19 00:00 30 09/26/19 00:00 Mechanical Ventilator Mechanical Ventilator Mechanical Ventilator Mechanical Ventilator 09/26/19 00:00 98.2 66 18 158/77 (104) 100 09/25/19 23:27 73 09/25/19 23:16 69 19 100 Mechanical Ventilator 30 71 18 30 09/25/19 20:18 74 18 100 Mechanical Ventilator 30 73 19 30 09/25/19 20:18 74 18 100 Mechanical Ventilator 30 09/25/19 20:00 Mechanical Ventilator Mechanical Ventilator Mechanical Ventilator Mechanical Ventilator 09/25/19 20:00 97.1 69 18 147/68 (94) 100 09/25/19 20:00 30 09/25/19 19:38 65 09/25/19 18:20 67 159/82 09/25/19 17:20 67 21 30 09/25/19 16:00 Mechanical Ventilator Mechanical Ventilator Mechanical Ventilator Mechanical Ventilator 09/25/19 16:00 30 09/25/19 16:00 97.0 63 18 159/82 (107) 100 09/25/19 15:31 63 09/25/19 15:25 65 19 100 Mechanical Ventilator 30 65 22 30 09/25/19 12:37 63 20 99 Mechanical Ventilator 30 63 20 30 09/25/19 12:00 97.0 55 18 145/70 (95) 100 09/25/19 12:00 30 09/25/19 12:00 Mechanical Ventilator Mechanical Ventilator Mechanical Ventilator Mechanical Ventilator Intake and Output 09/25/19 09/26/19 19:00 07:00 Intake Total 570 ml 465 ml Output Total 300 ml Balance 570 ml 165 ml Intake Free Water 150 ml 150 ml Tube Feeding 420 ml 315 ml Output Urine Total 300 ml # Bowel Movements 1 Laboratory Tests 09/26/19 04:55: White Blood Count 10.3, Red Blood Count 2.74L, Hemoglobin 8.3L, Hematocrit 24.1L , Mean Corpuscular Volume 88, Mean Corpuscular Hemoglobin 30.1, Mean Corpuscular Hemoglobin Concent 34.3, Red Cell Distribution Width 14.9H, Platelet Count 427, Mean Platelet Volume 5.0L, Neutrophils (%) (Auto) 74.0, Lymphocytes (%) (Auto) 20.3, Monocytes (%) (Auto) 3.6, Eosinophils (%) (Auto) 1.4, Basophils (%) (Auto) 0.8, Sodium Level 135L, Potassium Level 4.7, Chloride Level 98, Carbon Dioxide Level 20L, Blood Urea Nitrogen 130H, Creatinine 3.7H, Estimat Glomerular Filtration Rate 11.8, Glucose Level 116H, Calcium Level 8.1L , Phosphorus Level 6.3H, Magnesium Level 2.5H, Total Bilirubin 0.5, Gamma Glutamyl Transpeptidase 130H, Aspartate Amino Transf (AST/SGOT) 674H, Alanine Aminotransferase (ALT/SGPT) 541H, Alkaline Phosphatase 497H, Ammonia 41H, Total Protein 6.7, Albumin 2.2L, Globulin 4.5, Albumin/Globulin Ratio 0.5L Height (Feet): 5 Height (Inches): 4.00 Weight (Pounds): 112 General Appearance: cachetic Neck: normal alignment Cardiovascular: normal rate Respiratory/Chest: rhonchi - bilaterally Abdomen: normal bowel sounds Pelvis: normal external exam Objective Current Medications Medications (Trade) Dose Ordered Sig/Javier Route PRN Reason Start Time Stop Time Status Last Admin Dose Admin Acetylcysteine (Mucomyst) 100 mg Q4HRT N 08/31/19 19:00 11/29/19 18:59 09/26/19 10:53 Albuterol/ Ipratropium (Albuterol/ Ipratropium) 3 ml Q4HRT N 09/22/19 15:00 12/09/19 14:59 09/26/19 10:52 Amlodipine Besylate (Norvasc) 5 mg BID ORAL 09/25/19 09:00 10/25/19 08:59 09/26/19 09:26 Chlorhexidine Gluconate (Nae-Hex 2%) 1 applic DAILY@1999 TOPIC 09/17/19 20:00 12/16/19 19:59 09/25/19 21:13 Clonidine HCl (Catapres Tab) 0.1 mg Q4H PRN ORAL For High Blood Pressure 09/22/19 21:00 12/21/19 20:59 09/25/19 08:38 Dextrose (Dextrose 50%) 25 ml Q30M PRN IV Hypoglycemia 09/02/19 06:15 12/01/19 06:14 09/04/19 12:11 Dextrose (Dextrose 50%) 50 ml Q30M PRN IV Hypoglycemia 09/02/19 06:15 12/01/19 06:14 Lansoprazole (Prevacid) 30 mg DAILY GT 09/27/19 09:00 10/27/19 08:59 Levothyroxine Sodium (Synthroid) 125 mcg DAILY@0630 ORAL 09/22/19 06:30 10/22/19 06:29 09/26/19 06:03 Psyllium Hydrophilic Mucilloid (Metamucil) 1 pkt DAILY ORAL 09/22/19 15:00 10/22/19 14:59 09/26/19 09:26 Sevelamer Carbonate (Renvela) 800 mg Q8HR NG 09/25/19 14:00 12/24/19 13:59 09/26/19 06:03 Antonio Jacome MD Sep 26, 2019 11:59
[2019-09-26 12:00] VITALS: BP 152/84
--- NOTE | 2019-09-26 13:06 | Hematology/Onc Progress Note ---
Assessment/Plan Assessment/Plan # Thrombocytopenia ow THROMBOCYTOSIS - potential causes multifactorial, evaluate liver and viral etiologies to begin, in this case due to sepsis with septic shock also with cirrhosis and liver disease --> Hep panel and HIV ordered --> neg --> US abd to evaluate for cirrhosis and hsm ordered --> reviewed --> Peripheral smear ordered to evaluate for blasts /schistocytes --> none noted --> abx and other meds have been reviewed --> ok for ppx if plt >50k w/ either heparin or lovenox --> Transfuse if Plt < 20k and fever, or if Plt < 10k without fever --> okay for permacath change once plt better--> for 08/14 --> plt trend: 43-->83-->237k-->292-->341-->315-->388 -->444-->530-->252k-->344- >529->525k # Anemia of chronic disease due to underlying chronic medical issues, multifactorial v Gi bleed --> Anemia workup has been ordered, rule out gi bleed --> No evidence of hemolysis is noted, peripheral smear has been reviewed. --> Hgb goal >7. Transfuse prn. --> Epogen has been started --> HOLD OFF IRON ferritin is >1000 --> Medications have been reviewed --> low threshold for gi evaluation in case has occult + --> hgb 9-->6.7-->9.2 -->10.5-->10.6 -->10.7-->10-->10.5-->9.8-->10.4-->9.5--> 3.6-->9.6-->9.7-->10-->10.3-->11->9.9->8.3 --> blood tx: 08/11, 08/31 --> CT Chest r/o hemothorax --> does show confirmation of a large left hemothorax. Complete atelectasis of the left lower lobe and partial left upper lobe atelectasis demonstrated. Mild rightward shift of the heart and mediastinum. # Sepsis with shock. --> abx as per id, recs noted--> off abx --> pressors as needed # Healthcare-associated pneumonia. --> recs reviewed --> abx: jung/micafungin-->jung-->off --> 08/24 chest: moderate left pleural effusion # Severe protein-calorie malnutrition. --> nutritional support # End-stage renal disease --> had as renal hd --> with permacath # History of hypertension. --> per cards, now with Bradycardia. # Resp failure s/p vent/trach # HypoThyroid # Ngt feedings # Dvt ppx scd's The timing of this note does not necessarily reflect the time of the patient was seen. Greatly appreciate consultation. Subjective Constitutional: Denies: no symptoms, chills, fever, malaise, weakness, other Cardiovascular: Denies: no symptoms, chest pain, edema, irregular heart rate, lightheadedness, palpitations, syncope, other Respiratory: Denies: no symptoms, cough, shortness of breath, SOB with excertion, SOB at rest, sputum, wheezing, other Gastrointestinal/Abdominal: Denies: no symptoms, abdomen distended, abdominal pain, black stools, tarry stools, blood in stool, constipated, diarrhea, difficulty swallowing, nausea, poor appetite, poor fluid intake, rectal bleeding , vomiting, other Genitourinary: Denies: no symptoms, burning, discharge, frequency, flank pain, hematuria, incontinence, pain, urgency, other Neurologic/Psychiatric: Denies: no symptoms, anxiety, depressed, emotional problems, headache, numbness, paresthesia, pre-existing deficit, seizure, tingling, tremors, weakness, other Endocrine: Denies: no symptoms, excessive sweating, flushing, intolerance to cold, intolerance to heat, increased hunger, increased thirst, increased urine, unexplained weight gain, unexplained weight loss, other Hematologic/Lymphatic: Denies: no symptoms, anemia, easy bleeding, easy bruising, adenopathy, other Allergies: Coded Allergies: VANCOMYCIN (Unverified Allergy, Unknown, 08/02/19) Subjective 08/11: no bleeding or chills, labs reviewed, no major bleeding, plt less than 50k 08/12: icu, s/p blood, hgb improved to 9.2, 08/14: icu, pending consent for thora and permacath, labs reviewed 08/15: new permacath placed, no bleeding, for hd, plt much improved, started lovenox sq 08/16: ett to be adjusted, bp on high end, micafungin started, possible bronch 08/17: weaning as per pulm, no events otherwise, labs noted 08/18: no events no bleeding, remains confused on vent, for hd 08/20: icu, failed to wean, labs reviewed, jung 08/21: resting in bed, no overnight events, labs reviewed 08/22: awake, confused, restraints, no overnight events 08/23: no events, no bleeding, on ppi bid 08/24: icu, failed to wean, labs reviewed 08/25: no overnight events, us chest, restraints, afebrile 08/26 difficult in weaning, nad, seen by surg, pulm labs noted 08/27 awake on restraints, thoracentesis for am, labs reviewed 08/29 no bleeding, no night sweats, no major changes, on ppi bid 08/30 no major events, remains on vent, no bleeding, dw pcp 08/31 hgb dropped to 3.6, has been transfused with prbc, in icu, dw Rn, ct chest pend 09/01 no major events, no bleeding, labs noted, hgb remains low, hgb 9.6 09/03 lethargic, left chest tube dry/intact, off abx, vent 09/04 remains on a vent, synthroid, labs reviewed 09/05 awake and alert, no acute events, hgb 9.8, no new orders 09/06 no bleeding or chills, labs noted, no major events overnight, david rn 09/07 no events, no night sweats, no bleeding, no fc, remains agitated in the am 09/08 remains in the icu, trach was done, on vent, abx off, on epo 09/10 transferred to sdu, restraints, vent, labs reviewed 09/11 tube feeds have been ongoing, no f/c, labs reviewed 09/12 no events, no bleeding, no night sweats, hgb 10 09/13 tsh is improved, remains confused, hgb is 11, no bleeding 09/14 no events, no bleeding, labs noted, vitals stable 09/15 confused, no acute events, restraints, dc planning 09/17 no new changes, no recent labs, placement pending 09/18 no events, no bleeding, no night sweats, fevers 09/19 nonverbal, vent, elevated bp, off abx 09/20 labs reviewed, david rn, no bleeding, meds reviewed 09/21 is a+o x 1, nonverbal, no bleeding, labs reviewed, no night sweats 09/22 no major events, no bleeding, no night sweats, no f/c, labs noted hgb 10.5 09/25 no events, no bleeding, labs noted, cbc reviewed Objective Objective Current Medications Medications (Trade) Dose Ordered Sig/Javier Route PRN Reason Start Time Stop Time Status Last Admin Dose Admin Acetylcysteine (Mucomyst) 100 mg Q4HRT [facility] 08/31/19 19:00 11/29/19 18:59 09/26/19 10:53 Albuterol/ Ipratropium (Albuterol/ Ipratropium) 3 ml Q4HRT [facility] 09/22/19 15:00 12/09/19 14:59 09/26/19 10:52 Amlodipine Besylate (Norvasc) 5 mg BID ORAL 09/25/19 09:00 10/25/19 08:59 09/26/19 09:26 Chlorhexidine Gluconate (Nae-Hex 2%) 1 applic DAILY@1999 TOPIC 09/17/19 20:00 12/16/19 19:59 09/25/19 21:13 Clonidine HCl (Catapres Tab) 0.1 mg Q4H PRN ORAL For High Blood Pressure 09/22/19 21:00 12/21/19 20:59 09/25/19 08:38 Dextrose (Dextrose 50%) 25 ml Q30M PRN IV Hypoglycemia 09/02/19 06:15 12/01/19 06:14 09/04/19 12:11 Dextrose (Dextrose 50%) 50 ml Q30M PRN IV Hypoglycemia 09/02/19 06:15 12/01/19 06:14 Lansoprazole (Prevacid) 30 mg DAILY GT 09/27/19 09:00 10/27/19 08:59 Levothyroxine Sodium (Synthroid) 125 mcg DAILY@0630 ORAL 09/22/19 06:30 10/22/19 06:29 09/26/19 06:03 Psyllium Hydrophilic Mucilloid (Metamucil) 1 pkt DAILY ORAL 09/22/19 15:00 10/22/19 14:59 09/26/19 09:26 Sevelamer Carbonate (Renvela) 800 mg Q8HR NG 09/25/19 14:00 12/24/19 13:59 09/26/19 06:03 Last 24 Hour Vital Signs Date Time Temp Pulse Resp B/P (MAP) Pulse Ox O2 Delivery O2 Flow Rate FiO2 09/26/19 12:00 80 09/26/19 12:00 97.0 85 20 152/84 (106) 100 09/26/19 12:00 Mechanical Ventilator Mechanical Ventilator Mechanical Ventilator Mechanical Ventilator 09/26/19 09:26 100 09/26/19 09:26 85 153/81 09/26/19 09:26 72 18 Mechanical Ventilator 30 09/26/19 08:00 97.0 85 18 153/81 (105) 97 09/26/19 08:00 Mechanical Ventilator Mechanical Ventilator Mechanical Ventilator Mechanical Ventilator 09/26/19 07:55 82 09/26/19 07:15 71 19 100 Mechanical Ventilator 30 79 18 30 09/26/19 04:00 30 09/26/19 04:00 97.2 69 20 147/68 (94) 100 09/26/19 04:00 Mechanical Ventilator Mechanical Ventilator Mechanical Ventilator Mechanical Ventilator 09/26/19 03:38 87 09/26/19 02:16 75 18 100 Mechanical Ventilator 30 75 18 30 09/26/19 00:00 30 09/26/19 00:00 Mechanical Ventilator Mechanical Ventilator Mechanical Ventilator Mechanical Ventilator 09/26/19 00:00 98.2 66 18 158/77 (104) 100 09/25/19 23:27 73 09/25/19 23:16 69 19 100 Mechanical Ventilator 30 71 18 30 09/25/19 20:18 74 18 100 Mechanical Ventilator 30 73 19 30 09/25/19 20:18 74 18 100 Mechanical Ventilator 30 09/25/19 20:00 Mechanical Ventilator Mechanical Ventilator Mechanical Ventilator Mechanical Ventilator 09/25/19 20:00 97.1 69 18 147/68 (94) 100 09/25/19 20:00 30 09/25/19 19:38 65 09/25/19 18:20 67 159/82 09/25/19 17:20 67 21 30 09/25/19 16:00 Mechanical Ventilator Mechanical Ventilator Mechanical Ventilator Mechanical Ventilator 09/25/19 16:00 30 09/25/19 16:00 97.0 63 18 159/82 (107) 100 09/25/19 15:31 63 09/25/19 15:25 65 19 100 Mechanical Ventilator 30 65 22 30 09/25/19 12:37 63 20 99 Mechanical Ventilator 30 63 20 30 09/25/19 12:00 97.0 55 18 145/70 (95) 100 09/25/19 12:00 30 09/25/19 12:00 Mechanical Ventilator Mechanical Ventilator Mechanical Ventilator Mechanical Ventilator 09/25/19 11:42 59 09/25/19 09:47 67 177/83 09/25/19 08:38 177/83 09/25/19 08:00 Mechanical Ventilator Mechanical Ventilator Mechanical Ventilator Mechanical Ventilator 09/25/19 08:00 30 09/25/19 08:00 96.3 60 18 177/83 (114) 100 09/25/19 08:00 67 09/25/19 07:40 68 18 98 Mechanical Ventilator 30 66 18 30 09/25/19 06:30 154/77 09/25/19 04:43 69 20 30 09/25/19 04:11 65 09/25/19 04:00 Mechanical Ventilator Mechanical Ventilator Mechanical Ventilator Mechanical Ventilator 09/25/19 04:00 96.0 64 18 154/77 (102) 100 09/25/19 04:00 30 09/25/19 01:12 62 18 30 09/25/19 00:00 97.8 60 18 174/97 (122) 100 09/25/19 00:00 Mechanical Ventilator Mechanical Ventilator Mechanical Ventilator Mechanical Ventilator 09/25/19 00:00 67 09/25/19 00:00 174/97 09/25/19 00:00 30 09/24/19 22:35 67 18 100 Mechanical Ventilator 30 62 19 30 09/24/19 20:00 66 09/24/19 20:00 30 09/24/19 20:00 97.7 63 18 157/74 (101) 100 09/24/19 20:00 Mechanical Ventilator Mechanical Ventilator Mechanical Ventilator Mechanical Ventilator 09/24/19 19:59 61 19 100 Mechanical Ventilator 30 64 23 30 09/24/19 17:51 171/85 09/24/19 17:15 62 22 30 09/24/19 16:00 55 09/24/19 16:00 98.4 61 18 171/85 (113) 98 09/24/19 16:00 30 09/24/19 16:00 Mechanical Ventilator Mechanical Ventilator Mechanical Ventilator Mechanical Ventilator 09/24/19 15:55 60 18 100 Mechanical Ventilator 30 59 18 30 09/24/19 14:35 62 18 30 Intake and Output 09/25/19 09/26/19 19:00 07:00 Intake Total 570 ml 465 ml Output Total 300 ml Balance 570 ml 165 ml Intake Free Water 150 ml 150 ml Tube Feeding 420 ml 315 ml Output Urine Total 300 ml # Bowel Movements 1 Labs Test 09/24/19 05:48 09/24/19 16:00 09/25/19 06:11 09/26/19 04:55 White Blood Count 10.7 K/UL (4.8-10.8) 7.3 K/UL (4.8-10.8) 10.3 K/UL (4.8-10.8) Red Blood Count 3.46 M/UL (4.20-5.40) 3.25 M/UL (4.20-5.40) 2.74 M/UL (4.20-5.40) Hemoglobin 10.3 G/DL (12.0-16.0) 9.7 G/DL (12.0-16.0) 8.3 G/DL (12.0-16.0) Hematocrit 30.5 % (37.0-47.0) 28.6 % (37.0-47.0) 24.1 % (37.0-47.0) Mean Corpuscular Volume 88 FL (80-99) 88 FL (80-99) 88 FL (80-99) Mean Corpuscular Hemoglobin 29.9 PG (27.0-31.0) 29.8 PG (27.0-31.0) 30.1 PG (27.0-31.0) Mean Corpuscular Hemoglobin Concent 33.9 G/DL (32.0-36.0) 33.9 G/DL (32.0-36.0) 34.3 G/DL (32.0-36.0) Red Cell Distribution Width 14.8 % (11.6-14.8) 15.1 % (11.6-14.8) 14.9 % (11.6-14.8) Platelet Count 475 K/UL (150-450) 483 K/UL (150-450) 427 K/UL (150-450) Mean Platelet Volume 5.3 FL (6.5-10.1) 5.2 FL (6.5-10.1) 5.0 FL (6.5-10.1) Neutrophils (%) (Auto) 69.5 % (45.0-75.0) 67.1 % (45.0-75.0) 74.0 % (45.0-75.0) Lymphocytes (%) (Auto) 25.7 % (20.0-45.0) 28.3 % (20.0-45.0) 20.3 % (20.0-45.0) Monocytes (%) (Auto) 3.7 % (1.0-10.0) 2.9 % (1.0-10.0) 3.6 % (1.0-10.0) Eosinophils (%) (Auto) 0.6 % (0.0-3.0) 1.2 % (0.0-3.0) 1.4 % (0.0-3.0) Basophils (%) (Auto) 0.6 % (0.0-2.0) 0.5 % (0.0-2.0) 0.8 % (0.0-2.0) Sodium Level 133 MMOL/L (136-145) 133 MMOL/L (136-145) 135 MMOL/L (136-145) Potassium Level 4.3 MMOL/L (3.5-5.1) 5.0 MMOL/L (3.5-5.1) 4.7 MMOL/L (3.5-5.1) Chloride Level 95 MMOL/L (98-107) 95 MMOL/L (98-107) 98 MMOL/L (98-107) Carbon Dioxide Level 24 MMOL/L (21-32) 26 MMOL/L (21-32) 20 MMOL/L (21-32) Anion Gap 14 mmol/L (5-15) 12 mmol/L (5-15) Blood Urea Nitrogen 100 mg/dL (7-18) 119 mg/dL (7-18) 130 mg/dL (7-18) Creatinine 3.3 MG/DL (0.55-1.30) 3.4 MG/DL (0.55-1.30) 3.7 MG/DL (0.55-1.30) Estimat Glomerular Filtration Rate 13.5 mL/min (>60) 13.1 mL/min (>60) 11.8 mL/min (>60) Glucose Level 102 MG/DL (74-106) 92 MG/DL (74-106) 116 MG/DL (74-106) Calcium Level 9.0 MG/DL (8.5-10.1) 9.1 MG/DL (8.5-10.1) 8.1 MG/DL (8.5-10.1) Phosphorus Level 5.1 MG/DL (2.5-4.9) 6.1 MG/DL (2.5-4.9) 6.3 MG/DL (2.5-4.9) Magnesium Level 2.8 MG/DL (1.8-2.4) 2.8 MG/DL (1.8-2.4) 2.5 MG/DL (1.8-2.4) Total Bilirubin 0.5 MG/DL (0.2-1.0) 0.6 MG/DL (0.2-1.0) 0.5 MG/DL (0.2-1.0) Aspartate Amino Transf (AST/SGOT) 1783 U/L (15-37) 3771 U/L (15-37) 674 U/L (15-37) Alanine Aminotransferase (ALT/SGPT) 622 U/L (12-78) 1108 U/L (12-78) 541 U/L (12-78) Alkaline Phosphatase 525 U/L (46-116) 826 U/L (46-116) 497 U/L (46-116) C-Reactive Protein, Quantitative 12.8 mg/dL (0.00-0.90) 11.8 mg/dL (0.00-0.90) Pro-B-Type Natriuretic Peptide > 48330 pg/mL (0-125) > 53825 pg/mL (0-125) Total Protein 7.4 G/DL (6.4-8.2) 7.7 G/DL (6.4-8.2) 6.7 G/DL (6.4-8.2) Albumin 2.4 G/DL (3.4-5.0) 2.5 G/DL (3.4-5.0) 2.2 G/DL (3.4-5.0) Globulin 5.0 g/dL 5.2 g/dL 4.5 g/dL Albumin/Globulin Ratio 0.5 (1.0-2.7) 0.5 (1.0-2.7) 0.5 (1.0-2.7) Gamma Glutamyl Transpeptidase 235 U/L (5-85) 130 U/L (5-85) Ammonia 22 umol/L (11-32) 41 umol/L (11-32) Height (Feet): 5 Height (Inches): 4.00 Weight (Pounds): 112 Objective Physical Exam vitals: reviewed gen: nad pulm: on trach+ / vent, decreased breath sounds left, chest tube+ cv: rrr, no gmr abd: sfot, nt, nd ++ gt ext: no cce Gio Rob MD Sep 26, 2019 13:06
--- NOTE | 2019-09-26 13:15 | Surgery Progress Note ---
Surgery Progress Note Subjective Procedure Performed 1. tracheostomy 2 removal of left tube thoracostomy Additional Comments in laura somewhat responsive labs noted eam stable on vent imaging and labs reviewed Objective Last 24 Hour Vital Signs Date Time Temp Pulse Resp B/P (MAP) Pulse Ox O2 Delivery O2 Flow Rate FiO2 09/26/19 12:41 86 19 Mechanical Ventilator 30 09/26/19 12:00 80 09/26/19 12:00 30 09/26/19 12:00 97.0 85 20 152/84 (106) 100 09/26/19 12:00 Mechanical Ventilator Mechanical Ventilator Mechanical Ventilator Mechanical Ventilator 09/26/19 11:07 82 18 100 Mechanical Ventilator 30 82 18 30 09/26/19 09:26 100 09/26/19 09:26 85 153/81 09/26/19 09:26 72 18 Mechanical Ventilator 30 09/26/19 08:00 30 09/26/19 08:00 97.0 85 18 153/81 (105) 97 09/26/19 08:00 Mechanical Ventilator Mechanical Ventilator Mechanical Ventilator Mechanical Ventilator 09/26/19 07:55 82 09/26/19 07:15 71 19 100 Mechanical Ventilator 30 79 18 30 09/26/19 04:00 30 09/26/19 04:00 97.2 69 20 147/68 (94) 100 09/26/19 04:00 Mechanical Ventilator Mechanical Ventilator Mechanical Ventilator Mechanical Ventilator 09/26/19 03:38 87 09/26/19 02:16 75 18 100 Mechanical Ventilator 30 75 18 30 09/26/19 00:00 30 09/26/19 00:00 Mechanical Ventilator Mechanical Ventilator Mechanical Ventilator Mechanical Ventilator 09/26/19 00:00 98.2 66 18 158/77 (104) 100 09/25/19 23:27 73 09/25/19 23:16 69 19 100 Mechanical Ventilator 30 71 18 30 09/25/19 20:18 74 18 100 Mechanical Ventilator 30 73 19 30 09/25/19 20:18 74 18 100 Mechanical Ventilator 30 09/25/19 20:00 Mechanical Ventilator Mechanical Ventilator Mechanical Ventilator Mechanical Ventilator 09/25/19 20:00 97.1 69 18 147/68 (94) 100 09/25/19 20:00 30 09/25/19 19:38 65 09/25/19 18:20 67 159/82 09/25/19 17:20 67 21 30 09/25/19 16:00 Mechanical Ventilator Mechanical Ventilator Mechanical Ventilator Mechanical Ventilator 09/25/19 16:00 30 09/25/19 16:00 97.0 63 18 159/82 (107) 100 09/25/19 15:31 63 09/25/19 15:25 65 19 100 Mechanical Ventilator 30 65 22 30 I&O Intake and Output 09/25/19 09/26/19 19:00 07:00 Intake Total 570 ml 465 ml Output Total 300 ml Balance 570 ml 165 ml Intake Free Water 150 ml 150 ml Tube Feeding 420 ml 315 ml Output Urine Total 300 ml # Bowel Movements 1 Dressing: other Wound: other Drains: other Cardiovascular: RSR Respiratory: decreased breath sounds Abdomen: soft, non-tender, present bowel sounds Extremities: no tenderness, no cyanosis Laboratory Tests Test 09/26/19 04:55 White Blood Count 10.3 K/UL (4.8-10.8) Red Blood Count 2.74 M/UL (4.20-5.40) L Hemoglobin 8.3 G/DL (12.0-16.0) L Hematocrit 24.1 % (37.0-47.0) L Mean Corpuscular Volume 88 FL (80-99) Mean Corpuscular Hemoglobin 30.1 PG (27.0-31.0) Mean Corpuscular Hemoglobin Concent 34.3 G/DL (32.0-36.0) Red Cell Distribution Width 14.9 % (11.6-14.8) H Platelet Count 427 K/UL (150-450) Mean Platelet Volume 5.0 FL (6.5-10.1) L Neutrophils (%) (Auto) 74.0 % (45.0-75.0) Lymphocytes (%) (Auto) 20.3 % (20.0-45.0) Monocytes (%) (Auto) 3.6 % (1.0-10.0) Eosinophils (%) (Auto) 1.4 % (0.0-3.0) Basophils (%) (Auto) 0.8 % (0.0-2.0) Sodium Level 135 MMOL/L (136-145) L Potassium Level 4.7 MMOL/L (3.5-5.1) Chloride Level 98 MMOL/L (98-107) Carbon Dioxide Level 20 MMOL/L (21-32) L Blood Urea Nitrogen 130 mg/dL (7-18) H Creatinine 3.7 MG/DL (0.55-1.30) H Estimat Glomerular Filtration Rate 11.8 mL/min (>60) Glucose Level 116 MG/DL (74-106) H Calcium Level 8.1 MG/DL (8.5-10.1) L Phosphorus Level 6.3 MG/DL (2.5-4.9) H Magnesium Level 2.5 MG/DL (1.8-2.4) H Total Bilirubin 0.5 MG/DL (0.2-1.0) Gamma Glutamyl Transpeptidase 130 U/L (5-85) H Aspartate Amino Transf (AST/SGOT) 674 U/L (15-37) H Alanine Aminotransferase (ALT/SGPT) 541 U/L (12-78) H Alkaline Phosphatase 497 U/L (46-116) H Ammonia 41 umol/L (11-32) H Total Protein 6.7 G/DL (6.4-8.2) Albumin 2.2 G/DL (3.4-5.0) L Globulin 4.5 g/dL Albumin/Globulin Ratio 0.5 (1.0-2.7) L Assessment Post-op Diagnosis same Plan Problems: (1) Malnutrition Assessment & Plan: DAILY ESTIMATED NEEDS: Needs based on ESRD+ HD, underweight, wound/ 39.5kg 35-40 kcals/kg 0110-2235 total kcals 1.25-1.8 g protein/kg 49-71 g total protein 20-22 mL/kg 790-869 total fluid mLs NUTRITION DIAGNOSIS: * Increased kcal and protein needs r/t underweight status, HD needs, wuond healing as evidenced by pt is underweight per guidelines, ESRD, on HD, admitted non-blanching erythema wounds @ BL heels and sacrum * Swallowing difficulty R/T dysphagia as evidenced by BENZOL STILL OPERATOR recommends temporary nonoral feeding at this time, s/p NGT insertion, on NGT feeding-> now s/p self removal, NPO. CURRENT TF:NPO PO DIET RECOMMENDATIONS: WHEN SAFE FOR ORAL DIET -> renal/ texture per BENZOL STILL OPERATOR ENTERAL NUTRITION RECOMMENDATIONS: W/ GI access: Nepro @ 35ml/hr x 22 hrs to provide 770ml, 1386kcal, 62g prot, 560ml free water * W/ GI access, resume TF on Nepro * Initiate Nepro @ 15ml/hr x 6 hrs, advance 10ml q 4-6 hrs as tolerated to goal rate. * Hold 1 hour before and after Synthroid med * HOB over 30 degrees/ water flush per MD. ADDITIONAL RECOMMENDATIONS: 1) Calibrated bed scale wt for accurate CBW -> daily wt monitoring Per HD record: dry wt on 07/30=39.5kg (87lbs) 2) Wound care: (W/ GI access) add Nephorivte x 1 + Balta BID 3) Monitor NPO status: without GI access at this time, s/p pulling out NGT 4) Monitor for hypoglycemia while NPO 5) Monitor for continuity of HD (2) Septic arthritis Assessment & Plan: Pt presented on admission with generalized scaly rash . pt noted to be restless and scratching at skin. Bleeding from oral mucosa noted. Joint deformity noted to R shoulder. Surgical incision approximated with 11 sutures. Erythema but no exudate,or elevation in skin temp at site of incision. Historical incision R hip that is tunneled.Small amt seropurulent exudate noted. Periwound is erythematous,but no elevation in skin temp noted. No odor noted. Non-blanching erythema noted to sacrum. Perianal area is erythematous and excoriated. L heel is boggy with non-blanching erythema. R heel is soft with non-blanching erythema. No evidence of skin breakdown to all other bony prominences. Tx.plan: Cover R shoulder with Drsg and change daily and prn. Cleanse R hip wound with Saline. Apply Therahoney.Apply Cavilon Skin Barrier periwound. Cover with Optifoam drsg. Change every 3 days and prn. Apply Moisture Barrier Paste to perianal area and buttocks. Cover Sacrum with Optifoam drsg. Change every 3 days and prn. Apply Cavilon Skin Barrier to both heels. Cover each heel with Optifoam drsg. Change every 7 days and prn. APM/ELVIA Mattress overlay. Reposition at least every 2hours or as tolerated. Off-load heels with pillow. HD cath necessary HD as renal likely will need intubation 19 x 11 x 11 mm hypoechoic area in the liver adjacent to the gallbladder fossa. Although location is typical for area of focal sparing in a fatty liver, there are no findings to indicate fatty liver and this is a new finding since fairly recent previous exam. Therefore the possibility of a process such as small abscess should be considered. Atrophic echogenic kidneys Negative for gallstones or dilated bile ducts (3) Wound, open, hip or thigh with complication Assessment & Plan: slow healing will need nutritional optimization difficult ng tube peg when stable sutures removed from right shoulder comfortable wean vent may need trach (4) Abscess of right hip (5) possible septic arthritis (6) Renal failure (ARF), acute on chronic Assessment & Plan: cont HD will need tunneled cath placement okay to use fem line for now but will need change soon. line monitored and clean dressings going well (7) Pneumonia Assessment & Plan: intubated on vent support not tolerating weaning may need trach hemothorax likely after thoracentesis Chest CT noted Left chest tube placed With plan for trach chest tube can be considered but overall prognosis is very poor s/p trach left chest tub eout cxr noted and okay downgrade left pleural effusion dressings saturated will need to monitor. may need another chest tube as may not heal well on left side Anasarca, with as mentioned above diffuse edema of the soft tissues, trace ascites, and bilateral pleural effusions No hepatic abnormality to correlate with suspected small pericholecystic lesion in the liver described on recent sonogram. The lesion may be occult on noncontrast CT, may have been artifactual or may have resolved in the interim. Consider repeat sonography in a few days to assess progression No definite acute abdominal process otherwise Improved but still sizable left pleural effusion with minimal residual hemoperitoneum since prior CT scan of 09/01/2019. There is near complete atelectasis of the left lower lobe. There is a small right pleural effusion with atelectatic changes of the right lower lobe and right perihilar dense consolidation. These appear improved since a prior CT of 09/01/2019 Increased crazy paving type opacity within the right middle lobe since previous August [address], may reflect an area of increasing infiltrate, versus focal edema. There is also some dense consolidation of the perihilar right lower lobe which is improved since the previous August 31 CT Right groin temporary dialysis catheter in good position Atrophic kidneys, consistent with known history of chronic renal disease L2 compression fracture deformity, and advanced degenerative changes of the L2- L3 disc. Similar to prior study Marroquin catheter hold on repeat chest tube Camilo James Sep 26, 2019 13:15
--- NOTE | 2019-09-26 14:22 | Nephrology Progress Note ---
Assessment/Plan Problem List: (1) Liver enzyme elevation Assessment: Acute (2) ESRD (end stage renal disease) on dialysis (3) Malnutrition (4) Anemia in CKD (chronic kidney disease) (5) Hypotension (6) Thrombocytopenia (7) Sepsis Assessment: klebsiella in blood Assessment -Early sepsis with shock. -Healthcare-associated pneumonia. -Severe protein-calorie malnutrition. -Thrombocytopenia. - End-stage renal disease. - History of hypertension. - Bradycardia. - HypoThyroid Plan Labs reviewed Liver enzymes rising, hepatitis panel ordered today's labs indicates lowering of liver enzymes Tracheostomy September 07 Last dialysis September 20 done Next hemodialysis September 26 Chest tube on the left side was put in on September 01 was discontinued September 07 Patient transfused 3 units of packed RBCs for low hemoglobin Remains full code Blood pressure fluctuating, will start hydralazine via NG tube for blood pressure Magnesium and potassium supplement intravenously as needed Patient underwent PEG placement August 16 patient remains intubated on ventilator Discussed with RN Aim to wean from ventilator or consider tracheostomy Permacath was removed on August 12 Dialysis 08/11 Transfusion as needed Patient had hematemesis meds IV as possible Surveillance blood cultures tomorrow Plan to put the permacath back in on Thursday if cultures are negative keep BP and BS in check Inflammatory markers per orders Subjective ROS Limited/Unobtainable: No Constitutional: Reports: malaise Objective Objective Last 24 Hour Vital Signs Date Time Temp Pulse Resp B/P (MAP) Pulse Ox O2 Delivery O2 Flow Rate FiO2 09/26/19 12:41 86 19 Mechanical Ventilator 30 09/26/19 12:00 80 09/26/19 12:00 30 09/26/19 12:00 97.0 85 20 152/84 (106) 100 09/26/19 12:00 Mechanical Ventilator Mechanical Ventilator Mechanical Ventilator Mechanical Ventilator 09/26/19 11:07 82 18 100 Mechanical Ventilator 30 82 18 30 09/26/19 09:26 100 09/26/19 09:26 85 153/81 09/26/19 09:26 72 18 Mechanical Ventilator 30 09/26/19 08:00 30 09/26/19 08:00 97.0 85 18 153/81 (105) 97 09/26/19 08:00 Mechanical Ventilator Mechanical Ventilator Mechanical Ventilator Mechanical Ventilator 09/26/19 07:55 82 09/26/19 07:15 71 19 100 Mechanical Ventilator 30 79 18 30 09/26/19 04:00 30 4/13/20 04:00 97.2 69 20 147/68 (94) 100 09/26/19 04:00 Mechanical Ventilator Mechanical Ventilator Mechanical Ventilator Mechanical Ventilator 09/26/19 03:38 87 09/26/19 02:16 75 18 100 Mechanical Ventilator 30 75 18 30 09/26/19 00:00 30 09/26/19 00:00 Mechanical Ventilator Mechanical Ventilator Mechanical Ventilator Mechanical Ventilator 09/26/19 00:00 98.2 66 18 158/77 (104) 100 09/25/19 23:27 73 09/25/19 23:16 69 19 100 Mechanical Ventilator 30 71 18 30 09/25/19 20:18 74 18 100 Mechanical Ventilator 30 73 19 30 09/25/19 20:18 74 18 100 Mechanical Ventilator 30 09/25/19 20:00 Mechanical Ventilator Mechanical Ventilator Mechanical Ventilator Mechanical Ventilator 09/25/19 20:00 97.1 69 18 147/68 (94) 100 09/25/19 20:00 30 09/25/19 19:38 65 09/25/19 18:20 67 159/82 09/25/19 17:20 67 21 30 09/25/19 16:00 Mechanical Ventilator Mechanical Ventilator Mechanical Ventilator Mechanical Ventilator 09/25/19 16:00 30 09/25/19 16:00 97.0 63 18 159/82 (107) 100 09/25/19 15:31 63 09/25/19 15:25 65 19 100 Mechanical Ventilator 30 65 22 30 Intake and Output 09/25/19 09/26/19 19:00 07:00 Intake Total 570 ml 465 ml Output Total 300 ml Balance 570 ml 165 ml Intake Free Water 150 ml 150 ml Tube Feeding 420 ml 315 ml Output Urine Total 300 ml # Bowel Movements 1 Laboratory Tests 09/26/19 04:55: White Blood Count 10.3, Red Blood Count 2.74L, Hemoglobin 8.3L, Hematocrit 24.1L , Mean Corpuscular Volume 88, Mean Corpuscular Hemoglobin 30.1, Mean Corpuscular Hemoglobin Concent 34.3, Red Cell Distribution Width 14.9H, Platelet Count 427, Mean Platelet Volume 5.0L, Neutrophils (%) (Auto) 74.0, Lymphocytes (%) (Auto) 20.3, Monocytes (%) (Auto) 3.6, Eosinophils (%) (Auto) 1.4, Basophils (%) (Auto) 0.8, Sodium Level 135L, Potassium Level 4.7, Chloride Level 98, Carbon Dioxide Level 20L, Blood Urea Nitrogen 130H, Creatinine 3.7H, Estimat Glomerular Filtration Rate 11.8, Glucose Level 116H, Calcium Level 8.1L , Phosphorus Level 6.3H, Magnesium Level 2.5H, Total Bilirubin 0.5, Gamma Glutamyl Transpeptidase 130H, Aspartate Amino Transf (AST/SGOT) 674H, Alanine Aminotransferase (ALT/SGPT) 541H, Alkaline Phosphatase 497H, Ammonia 41H, Total Protein 6.7, Albumin 2.2L, Globulin 4.5, Albumin/Globulin Ratio 0.5L Height (Feet): 5 Height (Inches): 4.00 Weight (Pounds): 112 General Appearance: no apparent distress EENT: other - Trach and vent Cardiovascular: normal rate Respiratory/Chest: decreased breath sounds Abdomen: soft Objective no change William Blackwood MD Sep 26, 2019 14:22
[2019-09-26 16:00] VITALS: BP 136/70
[2019-09-26 20:00] VITALS: BP 174/84
[2019-09-26] MEDS: Dyna-Hex 2% Top Sol 2oz TOPIC SCH (23:00)
[2019-09-27] VITALS: BP 148/74
[2019-09-27] MEDS: Albuterol/Ipratropium 3ml neb HHN SCH ×7 (00:37→23:56)
[2019-09-27 04:00] VITALS: BP 135/64
[2019-09-27 05:39] LABS: BASOPHILS % (AUTO) 0.7 % (0.0-2.0); EOSINOPHILS % (AUTO) 2.3 % (0.0-3.0); HEMATOCRIT 25.6 % (37.0-47.0); HEMOGLOBIN 8.7 G/DL (12.0-16.0); LYMPHOCYTES % (AUTO) 24.6 % (20.0-45.0); MEAN CORPUSCULAR VOLUME 89 FL (80-99); MONOCYTES % (AUTO) 3.3 % (1.0-10.0); NEUTROPHILS % (AUTO) 69.2 % (45.0-75.0); PLATELET COUNT 407 K/UL (150-450); RED BLOOD COUNT 2.86 M/UL (4.20-5.40); RED CELL DISTRIBUTION WIDTH 14.8 % (11.6-14.8); WHITE BLOOD COUNT 9.4 K/UL (4.8-10.8)
[2019-09-27 05:51] LABS: ALANINE AMINOTRANSFERASE 389 U/L (12-78); ALBUMIN 2.4 G/DL (3.4-5.0); ANION GAP 12 mmol/L (5-15); ASPARTATE AMINO TRANSFERASE 415 U/L (15-37); BLOOD UREA NITROGEN 135 mg/dL (7-18); CALCIUM 8.7 MG/DL (8.5-10.1); CARBON DIOXIDE 25 MMOL/L (21-32); CHLORIDE 95 MMOL/L (98-107); POTASSIUM 4.7 MMOL/L (3.5-5.1); SODIUM 132 MMOL/L (136-145)
[2019-09-27] MEDS: Levothyroxine 125mcg tab ORAL SCH (06:06)
[2019-09-27] MEDS: Renvela 800mg Pkt NG SCH ×3 (06:07→21:10)
[2019-09-27 06:33] LABS: ALKALINE PHOSPHATASE 489 U/L (46-116); BILIRUBIN,TOTAL 0.4 MG/DL (0.2-1.0)
[2019-09-27 08:00] VITALS: BP 143/69
--- NOTE | 2019-09-27 08:51 | Hematology/Onc Progress Note ---
Assessment/Plan Assessment/Plan # Thrombocytopenia ow THROMBOCYTOSIS - potential causes multifactorial, evaluate liver and viral etiologies to begin, in this case due to sepsis with septic shock also with cirrhosis and liver disease --> Hep panel and HIV ordered --> neg --> US abd to evaluate for cirrhosis and hsm ordered --> reviewed --> Peripheral smear ordered to evaluate for blasts /schistocytes --> none noted --> abx and other meds have been reviewed --> ok for ppx if plt >50k w/ either heparin or lovenox --> Transfuse if Plt < 20k and fever, or if Plt < 10k without fever --> okay for permacath change once plt better--> for 08/14 --> plt trend: 43-->83-->237k-->292-->341-->315-->388 -->444-->530-->252k-->344- >529->525k # Anemia of chronic disease due to underlying chronic medical issues, multifactorial v Gi bleed --> Anemia workup has been ordered, rule out gi bleed --> No evidence of hemolysis is noted, peripheral smear has been reviewed. --> Hgb goal >7. Transfuse prn. --> Epogen has been started --> HOLD OFF IRON ferritin is >1000 --> Medications have been reviewed --> low threshold for gi evaluation in case has occult + --> hgb 9-->6.7-->9.2 -->10.5-->10.6 -->10.7-->10-->10.5-->9.8-->10.4-->9.5--> 3.6-->9.6-->9.7-->10-->10.3-->11->9.9->8.3->8.7 --> blood tx: 08/11, 08/31 --> CT Chest r/o hemothorax --> does show confirmation of a large left hemothorax. Complete atelectasis of the left lower lobe and partial left upper lobe atelectasis demonstrated. Mild rightward shift of the heart and mediastinum. # Sepsis with shock. --> abx as per id, recs noted--> off abx --> pressors as needed # Healthcare-associated pneumonia. --> recs reviewed --> abx: jung/micafungin-->jung-->off --> 08/24 chest: moderate left pleural effusion # Severe protein-calorie malnutrition. --> nutritional support # End-stage renal disease --> had as renal hd --> with permacath # History of hypertension. --> per cards, now with Bradycardia. # Resp failure s/p vent/trach # HypoThyroid # Ngt feedings # Dvt ppx scd's The timing of this note does not necessarily reflect the time of the patient was seen. Greatly appreciate consultation. Subjective HEENT: Denies: no symptoms, eye pain, blurred vision, tearing, double vision, ear pain, ear discharge, nose pain, nose congestion, throat pain, throat swelling, mouth pain, mouth swelling, other Cardiovascular: Denies: no symptoms, chest pain, edema, irregular heart rate, lightheadedness, palpitations, syncope, other Respiratory: Denies: no symptoms, cough, shortness of breath, SOB with excertion, SOB at rest, sputum, wheezing, other Gastrointestinal/Abdominal: Denies: no symptoms, abdomen distended, abdominal pain, black stools, tarry stools, blood in stool, constipated, diarrhea, difficulty swallowing, nausea, poor appetite, poor fluid intake, rectal bleeding , vomiting, other Genitourinary: Denies: no symptoms, burning, discharge, frequency, flank pain, hematuria, incontinence, pain, urgency, other Hematologic/Lymphatic: Denies: no symptoms, anemia, easy bleeding, easy bruising, adenopathy, other Allergies: Coded Allergies: VANCOMYCIN (Unverified Allergy, Unknown, 08/02/19) Subjective 08/11: no bleeding or chills, labs reviewed, no major bleeding, plt less than 50k 08/12: icu, s/p blood, hgb improved to 9.2, 08/14: icu, pending consent for thora and permacath, labs reviewed 08/15: new permacath placed, no bleeding, for hd, plt much improved, started lovenox sq 08/16: ett to be adjusted, bp on high end, micafungin started, possible bronch 08/17: weaning as per pulm, no events otherwise, labs noted 08/18: no events no bleeding, remains confused on vent, for hd 08/20: icu, failed to wean, labs reviewed, jung 08/21: resting in bed, no overnight events, labs reviewed 08/22: awake, confused, restraints, no overnight events 08/23: no events, no bleeding, on ppi bid 08/24: icu, failed to wean, labs reviewed 08/25: no overnight events, us chest, restraints, afebrile 08/26 difficult in weaning, nad, seen by surg, pulm labs noted 08/27 awake on restraints, thoracentesis for am, labs reviewed 08/29 no bleeding, no night sweats, no major changes, on ppi bid 08/30 no major events, remains on vent, no bleeding, dw pcp 08/31 hgb dropped to 3.6, has been transfused with prbc, in icu, david Rn, ct chest pend 09/01 no major events, no bleeding, labs noted, hgb remains low, hgb 9.6 09/03 lethargic, left chest tube dry/intact, off abx, vent 09/04 remains on a vent, synthroid, labs reviewed 09/05 awake and alert, no acute events, hgb 9.8, no new orders 09/06 no bleeding or chills, labs noted, no major events overnight, david rn 09/07 no events, no night sweats, no bleeding, no fc, remains agitated in the am 09/08 remains in the icu, trach was done, on vent, abx off, on epo 09/10 transferred to sdu, restraints, vent, labs reviewed 09/11 tube feeds have been ongoing, no f/c, labs reviewed 09/12 no events, no bleeding, no night sweats, hgb 10 09/13 tsh is improved, remains confused, hgb is 11, no bleeding 09/14 no events, no bleeding, labs noted, vitals stable 09/15 confused, no acute events, restraints, dc planning 09/17 no new changes, no recent labs, placement pending 09/18 no events, no bleeding, no night sweats, fevers 09/19 nonverbal, vent, elevated bp, off abx 09/20 labs reviewed, david rn, no bleeding, meds reviewed 09/21 is a+o x 1, nonverbal, no bleeding, labs reviewed, no night sweats 09/22 no major events, no bleeding, no night sweats, no f/c, labs noted hgb 10.5 09/25 no events, no bleeding, labs noted, cbc reviewed 09/26 no events, with gtube feeds ongoing and with event, labs noted Objective Objective Current Medications Medications (Trade) Dose Ordered Sig/Javier Route PRN Reason Start Time Stop Time Status Last Admin Dose Admin Acetylcysteine (Mucomyst) 100 mg Q4HRT N 08/31/19 19:00 11/29/19 18:59 09/27/19 08:03 Albuterol/ Ipratropium (Albuterol/ Ipratropium) 3 ml Q4HRT N 09/22/19 15:00 12/09/19 14:59 09/27/19 08:03 Amlodipine Besylate (Norvasc) 5 mg BID ORAL 09/25/19 09:00 10/25/19 08:59 09/26/19 17:38 Chlorhexidine Gluconate (Nae-Hex 2%) 1 applic DAILY@1999 TOPIC 09/17/19 20:00 12/16/19 19:59 09/26/19 23:00 Clonidine HCl (Catapres Tab) 0.1 mg Q4H PRN ORAL For High Blood Pressure 09/22/19 21:00 12/21/19 20:59 09/26/19 23:01 Dextrose (Dextrose 50%) 25 ml Q30M PRN IV Hypoglycemia 09/02/19 06:15 12/01/19 06:14 09/04/19 12:11 Dextrose (Dextrose 50%) 50 ml Q30M PRN IV Hypoglycemia 09/02/19 06:15 12/01/19 06:14 Lansoprazole (Prevacid) 30 mg DAILY GT 09/27/19 09:00 10/27/19 08:59 Levothyroxine Sodium (Synthroid) 125 mcg DAILY@0630 ORAL 09/22/19 06:30 10/22/19 06:29 09/27/19 06:06 Psyllium Hydrophilic Mucilloid (Metamucil) 1 pkt DAILY ORAL 09/22/19 15:00 10/22/19 14:59 09/26/19 09:26 Sevelamer Carbonate (Renvela) 800 mg Q8HR NG 09/25/19 14:00 12/24/19 13:59 09/27/19 06:07 Last 24 Hour Vital Signs Date Time Temp Pulse Resp B/P (MAP) Pulse Ox O2 Delivery O2 Flow Rate FiO2 09/27/19 08:03 70 19 100 Mechanical Ventilator 30 71 20 30 09/27/19 04:00 Mechanical Ventilator Mechanical Ventilator Mechanical Ventilator Mechanical Ventilator 09/27/19 04:00 97.4 76 19 135/64 (87) 100 09/27/19 04:00 30 09/27/19 04:00 76 09/27/19 03:29 68 18 100 Mechanical Ventilator 30 71 18 30 09/27/19 00:37 76 18 100 Mechanical Ventilator 30 74 18 30 09/27/19 00:00 97.2 80 18 148/74 (98) 100 09/27/19 00:00 Mechanical Ventilator Mechanical Ventilator Mechanical Ventilator Mechanical Ventilator 09/27/19 00:00 30 09/27/19 00:00 68 09/26/19 23:01 174/84 09/26/19 20:00 30 09/26/19 20:00 Mechanical Ventilator Mechanical Ventilator Mechanical Ventilator Mechanical Ventilator 09/26/19 20:00 97.0 80 18 174/84 (114) 100 09/26/19 20:00 80 09/26/19 19:40 73 18 100 Mechanical Ventilator 30 77 19 30 09/26/19 17:38 86 132/76 09/26/19 16:00 30 09/26/19 16:00 Mechanical Ventilator Mechanical Ventilator Mechanical Ventilator Mechanical Ventilator 09/26/19 16:00 96.8 84 18 136/70 (92) 99 09/26/19 15:20 81 18 100 Mechanical Ventilator 30 84 18 30 09/26/19 15:09 73 09/26/19 12:41 86 19 Mechanical Ventilator 30 09/26/19 12:00 80 09/26/19 12:00 30 09/26/19 12:00 97.0 85 20 152/84 (106) 100 09/26/19 12:00 Mechanical Ventilator Mechanical Ventilator Mechanical Ventilator Mechanical Ventilator 09/26/19 11:07 82 18 100 Mechanical Ventilator 30 82 18 30 09/26/19 09:26 100 09/26/19 09:26 85 153/81 09/26/19 09:26 72 18 Mechanical Ventilator 30 09/26/19 08:00 30 09/26/19 08:00 97.0 85 18 153/81 (105) 97 09/26/19 08:00 Mechanical Ventilator Mechanical Ventilator Mechanical Ventilator Mechanical Ventilator 09/26/19 07:55 82 09/26/19 07:15 71 19 100 Mechanical Ventilator 30 79 18 30 09/26/19 04:00 30 09/26/19 04:00 97.2 69 20 147/68 (94) 100 09/26/19 04:00 Mechanical Ventilator Mechanical Ventilator Mechanical Ventilator Mechanical Ventilator 09/26/19 03:38 87 09/26/19 02:16 75 18 100 Mechanical Ventilator 30 75 18 30 09/26/19 00:00 30 09/26/19 00:00 Mechanical Ventilator Mechanical Ventilator Mechanical Ventilator Mechanical Ventilator 09/26/19 00:00 98.2 66 18 158/77 (104) 100 09/25/19 23:27 73 09/25/19 23:16 69 19 100 Mechanical Ventilator 30 71 18 30 09/25/19 20:18 74 18 100 Mechanical Ventilator 30 73 19 30 09/25/19 20:18 74 18 100 Mechanical Ventilator 30 09/25/19 20:00 Mechanical Ventilator Mechanical Ventilator Mechanical Ventilator Mechanical Ventilator 09/25/19 20:00 97.1 69 18 147/68 (94) 100 09/25/19 20:00 30 09/25/19 19:38 65 09/25/19 18:20 67 159/82 09/25/19 17:20 67 21 30 09/25/19 16:00 Mechanical Ventilator Mechanical Ventilator Mechanical Ventilator Mechanical Ventilator 09/25/19 16:00 30 09/25/19 16:00 97.0 63 18 159/82 (107) 100 09/25/19 15:31 63 09/25/19 15:25 65 19 100 Mechanical Ventilator 30 65 22 30 09/25/19 12:37 63 20 99 Mechanical Ventilator 30 63 20 30 09/25/19 12:00 97.0 55 18 145/70 (95) 100 09/25/19 12:00 30 09/25/19 12:00 Mechanical Ventilator Mechanical Ventilator Mechanical Ventilator Mechanical Ventilator 09/25/19 11:42 59 09/25/19 09:47 67 177/83 Intake and Output 09/26/19 09/27/19 19:00 07:00 Intake Total 520 ml 435 ml Output Total 250 ml 300 ml Balance 270 ml 135 ml Intake Free Water 100 ml 50 ml Tube Feeding 420 ml 385 ml Output Urine Total 250 ml 300 ml Labs Test 09/24/19 16:00 09/25/19 06:11 09/26/19 04:55 09/27/19 03:41 White Blood Count 7.3 K/UL (4.8-10.8) 10.3 K/UL (4.8-10.8) 9.4 K/UL (4.8-10.8) Red Blood Count 3.25 M/UL (4.20-5.40) 2.74 M/UL (4.20-5.40) 2.86 M/UL (4.20-5.40) Hemoglobin 9.7 G/DL (12.0-16.0) 8.3 G/DL (12.0-16.0) 8.7 G/DL (12.0-16.0) Hematocrit 28.6 % (37.0-47.0) 24.1 % (37.0-47.0) 25.6 % (37.0-47.0) Mean Corpuscular Volume 88 FL (80-99) 88 FL (80-99) 89 FL (80-99) Mean Corpuscular Hemoglobin 29.8 PG (27.0-31.0) 30.1 PG (27.0-31.0) 30.4 PG (27.0-31.0) Mean Corpuscular Hemoglobin Concent 33.9 G/DL (32.0-36.0) 34.3 G/DL (32.0-36.0) 34.1 G/DL (32.0-36.0) Red Cell Distribution Width 15.1 % (11.6-14.8) 14.9 % (11.6-14.8) 14.8 % (11.6-14.8) Platelet Count 483 K/UL (150-450) 427 K/UL (150-450) 407 K/UL (150-450) Mean Platelet Volume 5.2 FL (6.5-10.1) 5.0 FL (6.5-10.1) 4.8 FL (6.5-10.1) Neutrophils (%) (Auto) 67.1 % (45.0-75.0) 74.0 % (45.0-75.0) 69.2 % (45.0-75.0) Lymphocytes (%) (Auto) 28.3 % (20.0-45.0) 20.3 % (20.0-45.0) 24.6 % (20.0-45.0) Monocytes (%) (Auto) 2.9 % (1.0-10.0) 3.6 % (1.0-10.0) 3.3 % (1.0-10.0) Eosinophils (%) (Auto) 1.2 % (0.0-3.0) 1.4 % (0.0-3.0) 2.3 % (0.0-3.0) Basophils (%) (Auto) 0.5 % (0.0-2.0) 0.8 % (0.0-2.0) 0.7 % (0.0-2.0) Sodium Level 133 MMOL/L (136-145) 135 MMOL/L (136-145) 132 MMOL/L (136-145) Potassium Level 5.0 MMOL/L (3.5-5.1) 4.7 MMOL/L (3.5-5.1) 4.7 MMOL/L (3.5-5.1) Chloride Level 95 MMOL/L (98-107) 98 MMOL/L (98-107) 95 MMOL/L (98-107) Carbon Dioxide Level 26 MMOL/L (21-32) 20 MMOL/L (21-32) 25 MMOL/L (21-32) Anion Gap 12 mmol/L (5-15) 12 mmol/L (5-15) Blood Urea Nitrogen 119 mg/dL (7-18) 130 mg/dL (7-18) 135 mg/dL (7-18) Creatinine 3.4 MG/DL (0.55-1.30) 3.7 MG/DL (0.55-1.30) 4.0 MG/DL (0.55-1.30) Estimat Glomerular Filtration Rate 13.1 mL/min (>60) 11.8 mL/min (>60) 10.8 mL/min (>60) Glucose Level 92 MG/DL (74-106) 116 MG/DL (74-106) 113 MG/DL (74-106) Calcium Level 9.1 MG/DL (8.5-10.1) 8.1 MG/DL (8.5-10.1) 8.7 MG/DL (8.5-10.1) Phosphorus Level 6.1 MG/DL (2.5-4.9) 6.3 MG/DL (2.5-4.9) Magnesium Level 2.8 MG/DL (1.8-2.4) 2.5 MG/DL (1.8-2.4) Total Bilirubin 0.6 MG/DL (0.2-1.0) 0.5 MG/DL (0.2-1.0) 0.4 MG/DL (0.2-1.0) Gamma Glutamyl Transpeptidase 235 U/L (5-85) 130 U/L (5-85) Aspartate Amino Transf (AST/SGOT) 3771 U/L (15-37) 674 U/L (15-37) 415 U/L (15-37) Alanine Aminotransferase (ALT/SGPT) 1108 U/L (12-78) 541 U/L (12-78) 389 U/L (12-78) Alkaline Phosphatase 826 U/L (46-116) 497 U/L (46-116) 489 U/L (46-116) Ammonia 22 umol/L (11-32) 41 umol/L (11-32) C-Reactive Protein, Quantitative 11.8 mg/dL (0.00-0.90) Pro-B-Type Natriuretic Peptide > 75405 pg/mL (0-125) Total Protein 7.7 G/DL (6.4-8.2) 6.7 G/DL (6.4-8.2) 7.5 G/DL (6.4-8.2) Albumin 2.5 G/DL (3.4-5.0) 2.2 G/DL (3.4-5.0) 2.4 G/DL (3.4-5.0) Globulin 5.2 g/dL 4.5 g/dL 5.1 g/dL Albumin/Globulin Ratio 0.5 (1.0-2.7) 0.5 (1.0-2.7) Height (Feet): 5 Height (Inches): 4.00 Weight (Pounds): 112 Objective Physical Exam vitals: reviewed gen: nad pulm: on trach+ / vent, decreased breath sounds left, chest tube+ cv: rrr, no gmr abd: sfot, nt, nd ++ gt ext: no cce Gio Rob MD Sep 27, 2019 08:51
--- NOTE | 2019-09-27 09:00 | Progress Note ---
DATE: 09/26/2019 CARDIOLOGY PROGRESS NOTE SUBJECTIVE: The patient remains on ventilator support. Monitored rhythm sinus. No significant arrhythmia. Liver function studies have been elevated. Today there is significant improvement. Hydralazine was discontinued yesterday as a possible culprit. OBJECTIVE: VITAL SIGNS: Blood pressure 132/76 to 174/84. LUNGS: Bilateral breath sounds. HEART: Regular rhythm and rate. Normal S1, S2. ABDOMEN: Soft. G-tube intact. EXTREMITIES: Trace edema. PLAN: 1. Observe liver function studies. 2. Off hydralazine. 3. Alternative therapy added and will be up titrated based on clinical parameters. 4. We will need to continue ultrafiltration with hemodialysis for volume management. 5. Cardiac rhythm is stable following replacement of thyroid hormone. Abel Stubbs M.D. DR: Lety JOB#: [id number] CC:
--- NOTE | 2019-09-27 09:09 | General Progress Note ---
Assessment/Plan Status: stable, not improved, unchanged, deteriorating Assessment/Plan: Assessment - Severe ulcerative esophagitis - mild elevation in LFT, Hepatitis B/C negative --> now sudden rise - ? related to new 1.9 cm mass near GB - ? autoimmune / high ESR - abnormal liver on CT - ? chronic disease / fibrosis - Resp failure - trach - s/p recent Chest tube and removal - Renal failure - aspiration risk --> s/p PEG - anemia - bradycardia - Poor prognosis Recommendations - CT reviewed -? shock liver. Repeat in am>>> improving - check autoimmune markers - pending>>> neg JOLIE - check AFP - GT care - water flushes - elevate HOB - monitor H&H - ppi -check stool ob - vent -improving LFTS Subjective ROS Limited/Unobtainable: No Allergies: Coded Allergies: VANCOMYCIN (Unverified Allergy, Unknown, 08/02/19) Subjective s/p blood transfusion Objective Last 24 Hour Vital Signs Date Time Temp Pulse Resp B/P (MAP) Pulse Ox O2 Delivery O2 Flow Rate FiO2 09/27/19 08:59 68 21 30 09/27/19 08:03 70 19 100 Mechanical Ventilator 30 71 20 30 09/27/19 04:00 Mechanical Ventilator Mechanical Ventilator Mechanical Ventilator Mechanical Ventilator 09/27/19 04:00 97.4 76 19 135/64 (87) 100 09/27/19 04:00 30 09/27/19 04:00 76 09/27/19 03:29 68 18 100 Mechanical Ventilator 30 71 18 30 09/27/19 00:37 76 18 100 Mechanical Ventilator 30 74 18 30 09/27/19 00:00 97.2 80 18 148/74 (98) 100 09/27/19 00:00 Mechanical Ventilator Mechanical Ventilator Mechanical Ventilator Mechanical Ventilator 09/27/19 00:00 30 09/27/19 00:00 68 09/26/19 23:01 174/84 09/26/19 20:00 30 09/26/19 20:00 Mechanical Ventilator Mechanical Ventilator Mechanical Ventilator Mechanical Ventilator 09/26/19 20:00 97.0 80 18 174/84 (114) 100 09/26/19 20:00 80 09/26/19 19:40 73 18 100 Mechanical Ventilator 30 77 19 30 09/26/19 17:38 86 132/76 09/26/19 16:00 30 09/26/19 16:00 Mechanical Ventilator Mechanical Ventilator Mechanical Ventilator Mechanical Ventilator 09/26/19 16:00 96.8 84 18 136/70 (92) 99 09/26/19 15:20 81 18 100 Mechanical Ventilator 30 84 18 30 09/26/19 15:09 73 09/26/19 12:41 86 19 Mechanical Ventilator 30 09/26/19 12:00 80 09/26/19 12:00 30 09/26/19 12:00 97.0 85 20 152/84 (106) 100 09/26/19 12:00 Mechanical Ventilator Mechanical Ventilator Mechanical Ventilator Mechanical Ventilator 09/26/19 11:07 82 18 100 Mechanical Ventilator 30 82 18 30 09/26/19 09:26 100 09/26/19 09:26 85 153/81 09/26/19 09:26 72 18 Mechanical Ventilator 30 Intake and Output 09/26/19 09/27/19 19:00 07:00 Intake Total 520 ml 435 ml Output Total 250 ml 300 ml Balance 270 ml 135 ml Intake Free Water 100 ml 50 ml Tube Feeding 420 ml 385 ml Output Urine Total 250 ml 300 ml Laboratory Tests 09/27/19 03:41: White Blood Count 9.4, Red Blood Count 2.86L, Hemoglobin 8.7L, Hematocrit 25.6L , Mean Corpuscular Volume 89, Mean Corpuscular Hemoglobin 30.4, Mean Corpuscular Hemoglobin Concent 34.1, Red Cell Distribution Width 14.8, Platelet Count 407, Mean Platelet Volume 4.8L, Neutrophils (%) (Auto) 69.2, Lymphocytes ( %) (Auto) 24.6, Monocytes (%) (Auto) 3.3, Eosinophils (%) (Auto) 2.3, Basophils (%) (Auto) 0.7, Sodium Level 132L, Potassium Level 4.7, Chloride Level 95L, Carbon Dioxide Level 25, Anion Gap 12, Blood Urea Nitrogen 135H, Creatinine 4.0H , Estimat Glomerular Filtration Rate 10.8, Glucose Level 113H, Calcium Level 8.7 , Total Bilirubin 0.4, Aspartate Amino Transf (AST/SGOT) 415H, Alanine Aminotransferase (ALT/SGPT) 389H, Alkaline Phosphatase 489H, Total Protein 7.5, Albumin 2.4L, Globulin 5.1 Height (Feet): 5 Height (Inches): 4.00 Weight (Pounds): 112 General Appearance: no apparent distress, lethargic EENT: normal ENT inspection Neck: supple Cardiovascular: normal rate Respiratory/Chest: decreased breath sounds Abdomen: normal bowel sounds, non tender, soft Extremities: non-tender Kenny Rudolph MD Sep 27, 2019 09:09
[2019-09-27] MEDS: Metamucil Pkt ORAL SCH (09:31)
--- NOTE | 2019-09-27 10:46 | Critical Care Progress Note ---
Assessment/Plan Assessment/Plan respiratory failure hypoxemia chronic renal failure toxic met encephalopathy severe protein calorie malnutrition cachexia left lung whiteout/collapse, anemia pulmonary edema + pleural effusion s/p CT placement and removal s/p trach hypernatremia PLAN trach care as is repeat imaging this week care noted and reviewed monitor for fluid retention reviewed care and continue to monitor weaning not successful prognosis poor overall for change keep negative and monitor osmotic pressures fully dependent for now close follow up discussed elevated head and monitor ROM watch fluid status and keep negative nutrition and monitor residuals isolation reviewed off load as able and monitor skin exam ROM as able and monitor contractures prognosis poor for recovery will need LTAC impression, plan, and exam edited and reviewed in detail care discussed with crisis intervention counselor - Subjective Interval Events: events noted and reviewed no distress at present ROS Limited/Unobtainable: Yes Condition: unchanged EKG Rhythm: Sinus Rhythm Residuals: minimal Tube Feeding Tolerated: yes I&O: Intake and Output 09/26/19 09/27/19 19:00 07:00 Intake Total 520 ml 435 ml Output Total 250 ml 300 ml Balance 270 ml 135 ml Intake Free Water 100 ml 50 ml Tube Feeding 420 ml 385 ml Output Urine Total 250 ml 300 ml Critical Care - Objective ET-Tube: 7.0 ET Position: 19 Last 24 Hour Vital Signs Date Time Temp Pulse Resp B/P (MAP) Pulse Ox O2 Delivery O2 Flow Rate FiO2 09/27/19 08:59 68 21 30 09/27/19 08:03 70 19 100 Mechanical Ventilator 30 71 20 30 09/27/19 08:00 72 09/27/19 04:00 Mechanical Ventilator Mechanical Ventilator Mechanical Ventilator Mechanical Ventilator 09/27/19 04:00 97.4 76 19 135/64 (87) 100 09/27/19 04:00 30 09/27/19 04:00 76 09/27/19 03:29 68 18 100 Mechanical Ventilator 30 71 18 30 09/27/19 00:37 76 18 100 Mechanical Ventilator 30 74 18 30 09/27/19 00:00 97.2 80 18 148/74 (98) 100 09/27/19 00:00 Mechanical Ventilator Mechanical Ventilator Mechanical Ventilator Mechanical Ventilator 09/27/19 00:00 30 09/27/19 00:00 68 09/26/19 23:01 174/84 09/26/19 20:00 30 09/26/19 20:00 Mechanical Ventilator Mechanical Ventilator Mechanical Ventilator Mechanical Ventilator 09/26/19 20:00 97.0 80 18 174/84 (114) 100 09/26/19 20:00 80 09/26/19 19:40 73 18 100 Mechanical Ventilator 30 77 19 30 09/26/19 17:38 86 132/76 09/26/19 16:00 30 09/26/19 16:00 Mechanical Ventilator Mechanical Ventilator Mechanical Ventilator Mechanical Ventilator 09/26/19 16:00 96.8 84 18 136/70 (92) 99 09/26/19 15:20 81 18 100 Mechanical Ventilator 30 84 18 30 09/26/19 15:09 73 09/26/19 12:41 86 19 Mechanical Ventilator 30 09/26/19 12:00 80 09/26/19 12:00 30 09/26/19 12:00 97.0 85 20 152/84 (106) 100 09/26/19 12:00 Mechanical Ventilator Mechanical Ventilator Mechanical Ventilator Mechanical Ventilator 09/26/19 11:07 82 18 100 Mechanical Ventilator 30 82 18 30 Labs: Laboratory Tests Test 09/27/19 03:41 White Blood Count 9.4 K/UL (4.8-10.8) Red Blood Count 2.86 M/UL (4.20-5.40) L Hemoglobin 8.7 G/DL (12.0-16.0) L Hematocrit 25.6 % (37.0-47.0) L Mean Corpuscular Volume 89 FL (80-99) Mean Corpuscular Hemoglobin 30.4 PG (27.0-31.0) Mean Corpuscular Hemoglobin Concent 34.1 G/DL (32.0-36.0) Red Cell Distribution Width 14.8 % (11.6-14.8) Platelet Count 407 K/UL (150-450) Mean Platelet Volume 4.8 FL (6.5-10.1) L Neutrophils (%) (Auto) 69.2 % (45.0-75.0) Lymphocytes (%) (Auto) 24.6 % (20.0-45.0) Monocytes (%) (Auto) 3.3 % (1.0-10.0) Eosinophils (%) (Auto) 2.3 % (0.0-3.0) Basophils (%) (Auto) 0.7 % (0.0-2.0) Sodium Level 132 MMOL/L (136-145) L Potassium Level 4.7 MMOL/L (3.5-5.1) Chloride Level 95 MMOL/L (98-107) L Carbon Dioxide Level 25 MMOL/L (21-32) Anion Gap 12 mmol/L (5-15) Blood Urea Nitrogen 135 mg/dL (7-18) H Creatinine 4.0 MG/DL (0.55-1.30) H Estimat Glomerular Filtration Rate 10.8 mL/min (>60) Glucose Level 113 MG/DL (74-106) H Calcium Level 8.7 MG/DL (8.5-10.1) Total Bilirubin 0.4 MG/DL (0.2-1.0) Aspartate Amino Transf (AST/SGOT) 415 U/L (15-37) H Alanine Aminotransferase (ALT/SGPT) 389 U/L (12-78) H Alkaline Phosphatase 489 U/L (46-116) H Total Protein 7.5 G/DL (6.4-8.2) Albumin 2.4 G/DL (3.4-5.0) L Globulin 5.1 g/dL Objective: WDWN NAD trach in place reduced breath sounds left greater right; no rhonchi [id number] without MRG NABS nontender no HSM no CCE contractures feeding tube in place no distention reduced LOC and weak nonfocal cachectic reviewed and edited Accucheck: 89 Malcolm Cruz MD Sep 27, 2019 10:46
--- NOTE | 2019-09-27 10:53 | Infectious Diseases Prog Note ---
Assessment/Plan Assessment/Plan antibiotics : none A 1. jarad albicans fungemia s/p rx 2. right shoulder septic arthritis with staph aureus s/p rx 3. pleural effusion 4. thrombocytopenia resolved 7. diabetes mellitus 8. hypertension 9. respiratory failure P 1. observe off antibiotics Subjective ROS Limited/Unobtainable: Yes Allergies: Coded Allergies: VANCOMYCIN (Unverified Allergy, Unknown, 08/02/19) Objective Vital Signs Last 24 Hour Vital Signs Date Time Temp Pulse Resp B/P (MAP) Pulse Ox O2 Delivery O2 Flow Rate FiO2 09/27/19 08:59 68 21 30 09/27/19 08:03 70 19 100 Mechanical Ventilator 30 71 20 30 09/27/19 08:00 72 09/27/19 04:00 Mechanical Ventilator Mechanical Ventilator Mechanical Ventilator Mechanical Ventilator 09/27/19 04:00 97.4 76 19 135/64 (87) 100 09/27/19 04:00 30 09/27/19 04:00 76 09/27/19 03:29 68 18 100 Mechanical Ventilator 30 71 18 30 09/27/19 00:37 76 18 100 Mechanical Ventilator 30 74 18 30 09/27/19 00:00 97.2 80 18 148/74 (98) 100 09/27/19 00:00 Mechanical Ventilator Mechanical Ventilator Mechanical Ventilator Mechanical Ventilator 09/27/19 00:00 30 09/27/19 00:00 68 09/26/19 23:01 174/84 09/26/19 20:00 30 09/26/19 20:00 Mechanical Ventilator Mechanical Ventilator Mechanical Ventilator Mechanical Ventilator 09/26/19 20:00 97.0 80 18 174/84 (114) 100 09/26/19 20:00 80 09/26/19 19:40 73 18 100 Mechanical Ventilator 30 77 19 30 09/26/19 17:38 86 132/76 09/26/19 16:00 30 09/26/19 16:00 Mechanical Ventilator Mechanical Ventilator Mechanical Ventilator Mechanical Ventilator 09/26/19 16:00 96.8 84 18 136/70 (92) 99 09/26/19 15:20 81 18 100 Mechanical Ventilator 30 84 18 30 09/26/19 15:09 73 09/26/19 12:41 86 19 Mechanical Ventilator 30 09/26/19 12:00 80 09/26/19 12:00 30 09/26/19 12:00 97.0 85 20 152/84 (106) 100 09/26/19 12:00 Mechanical Ventilator Mechanical Ventilator Mechanical Ventilator Mechanical Ventilator 09/26/19 11:07 82 18 100 Mechanical Ventilator 30 82 18 30 Height (Feet): 5 Height (Inches): 4.00 Weight (Pounds): 112 HEENT: status post trach Respiratory/Chest: lungs clear Cardiovascular: normal rate, regular rhythm, no gallop/murmur Abdomen: soft, non tender, other - GT Extremities: no edema, other - right groin catheter Laboratory Tests Test 09/27/19 03:41 White Blood Count 9.4 K/UL (4.8-10.8) Red Blood Count 2.86 M/UL (4.20-5.40) L Hemoglobin 8.7 G/DL (12.0-16.0) L Hematocrit 25.6 % (37.0-47.0) L Mean Corpuscular Volume 89 FL (80-99) Mean Corpuscular Hemoglobin 30.4 PG (27.0-31.0) Mean Corpuscular Hemoglobin Concent 34.1 G/DL (32.0-36.0) Red Cell Distribution Width 14.8 % (11.6-14.8) Platelet Count 407 K/UL (150-450) Mean Platelet Volume 4.8 FL (6.5-10.1) L Neutrophils (%) (Auto) 69.2 % (45.0-75.0) Lymphocytes (%) (Auto) 24.6 % (20.0-45.0) Monocytes (%) (Auto) 3.3 % (1.0-10.0) Eosinophils (%) (Auto) 2.3 % (0.0-3.0) Basophils (%) (Auto) 0.7 % (0.0-2.0) Sodium Level 132 MMOL/L (136-145) L Potassium Level 4.7 MMOL/L (3.5-5.1) Chloride Level 95 MMOL/L (98-107) L Carbon Dioxide Level 25 MMOL/L (21-32) Anion Gap 12 mmol/L (5-15) Blood Urea Nitrogen 135 mg/dL (7-18) H Creatinine 4.0 MG/DL (0.55-1.30) H Estimat Glomerular Filtration Rate 10.8 mL/min (>60) Glucose Level 113 MG/DL (74-106) H Calcium Level 8.7 MG/DL (8.5-10.1) Total Bilirubin 0.4 MG/DL (0.2-1.0) Aspartate Amino Transf (AST/SGOT) 415 U/L (15-37) H Alanine Aminotransferase (ALT/SGPT) 389 U/L (12-78) H Alkaline Phosphatase 489 U/L (46-116) H Total Protein 7.5 G/DL (6.4-8.2) Albumin 2.4 G/DL (3.4-5.0) L Globulin 5.1 g/dL Current Medications Medications (Trade) Dose Ordered Sig/Javier Route PRN Reason Start Time Stop Time Status Last Admin Dose Admin Acetylcysteine (Mucomyst) 100 mg Q4HRT N 08/31/19 19:00 11/29/19 18:59 09/27/19 08:03 Albuterol/ Ipratropium (Albuterol/ Ipratropium) 3 ml Q4HRT N 09/22/19 15:00 12/09/19 14:59 09/27/19 08:03 Amlodipine Besylate (Norvasc) 5 mg BID ORAL 09/25/19 09:00 10/25/19 08:59 09/26/19 17:38 Chlorhexidine Gluconate (Nae-Hex 2%) 1 applic DAILY@1999 TOPIC 09/17/19 20:00 12/16/19 19:59 09/26/19 23:00 Clonidine HCl (Catapres Tab) 0.1 mg Q4H PRN ORAL For High Blood Pressure 09/22/19 21:00 12/21/19 20:59 09/26/19 23:01 Dextrose (Dextrose 50%) 25 ml Q30M PRN IV Hypoglycemia 09/02/19 06:15 12/01/19 06:14 09/04/19 12:11 Dextrose (Dextrose 50%) 50 ml Q30M PRN IV Hypoglycemia 09/02/19 06:15 12/01/19 06:14 Lansoprazole (Prevacid) 30 mg DAILY GT 09/27/19 09:00 10/27/19 08:59 09/27/19 09:31 Levothyroxine Sodium (Synthroid) 125 mcg DAILY@0630 ORAL 09/22/19 06:30 10/22/19 06:29 09/27/19 06:06 Psyllium Hydrophilic Mucilloid (Metamucil) 1 pkt DAILY ORAL 09/22/19 15:00 10/22/19 14:59 09/27/19 09:31 Sevelamer Carbonate (Renvela) 800 mg Q8HR NG 09/25/19 14:00 12/24/19 13:59 09/27/19 06:07 Melissa Solares MD Sep 27, 2019 10:53
[2019-09-27 12:00] VITALS: BP 139/73
--- NOTE | 2019-09-27 12:58 | General Progress Note ---
Assessment/Plan Problem List: (1) Failure to thrive (0-17) ICD Codes: R62.51 - Failure to thrive (0-17) SNOMED: 577934872 (2) Hypertensive kidney disease ICD Codes: I12.9 - Hypertensive chronic kidney disease with stage 1 through stage 4 chronic kidney disease, or unspecified chronic kidney disease SNOMED: 59075928 (3) Pneumonia ICD Codes: J18.9 - Pneumonia, unspecified organism SNOMED: 827236073 Qualifiers: Qualified Codes: J18.9 - Pneumonia, unspecified organism (4) ESRD (end stage renal disease) ICD Codes: N18.6 - End stage renal disease SNOMED: 66004191 (5) Septic arthritis ICD Codes: M00.9 - Pyogenic arthritis, unspecified SNOMED: 765664402 (6) Thrombocytopenia ICD Codes: D69.6 - Thrombocytopenia, unspecified SNOMED: 860460261 (7) Hypotension ICD Codes: I95.9 - Hypotension, unspecified SNOMED: 96464000 Qualifiers: Qualified Codes: I95.3 - Hypotension of hemodialysis (8) Malnutrition ICD Codes: E46 - Unspecified protein-calorie malnutrition SNOMED: 91447603 Status: stable, not improved, unchanged, deteriorating Assessment/Plan: Continue vent support. Wean as able. Will discuss with pulmonary if patient could be weaned to trach collar.Suctioning and pulmonary toilet. Continue G-tube feedings. Monitor residuals Continue current blood pressure regimen with close monitoring of blood pressure. Hemodialysis with ultrafiltration per nephrology. Turn every 2 hours and good skin care. monitor labs/lfts hep panel dc hydralazine(per GI can cause transaminitis) Discharge planning in progress Subjective ROS Limited/Unobtainable: No Constitutional: Reports: malaise, weakness HEENT: Reports: no symptoms Cardiovascular: Reports: no symptoms Respiratory: Reports: cough, shortness of breath Gastrointestinal/Abdominal: Reports: difficulty swallowing Genitourinary: Reports: no symptoms Neurologic/Psychiatric: Reports: no symptoms Endocrine: Reports: no symptoms Hematologic/Lymphatic: Reports: no symptoms Allergies: Coded Allergies: VANCOMYCIN (Unverified Allergy, Unknown, 08/02/19) All Systems: reviewed and negative except above Subjective There were no overnight events. Patient remained stable on the ventilator. She occasionally opens her eyes. Tolerating feedings. LFTS trending down. Objective Last 24 Hour Vital Signs Date Time Temp Pulse Resp B/P (MAP) Pulse Ox O2 Delivery O2 Flow Rate FiO2 09/27/19 12:00 30 09/27/19 12:00 Mechanical Ventilator Mechanical Ventilator Mechanical Ventilator Mechanical Ventilator 09/27/19 08:59 68 21 30 09/27/19 08:03 70 19 100 Mechanical Ventilator 30 71 20 30 09/27/19 08:00 96.4 71 23 143/69 (93) 100 09/27/19 08:00 Mechanical Ventilator Mechanical Ventilator Mechanical Ventilator Mechanical Ventilator 09/27/19 08:00 72 09/27/19 08:00 30 09/27/19 04:00 Mechanical Ventilator Mechanical Ventilator Mechanical Ventilator Mechanical Ventilator 09/27/19 04:00 97.4 76 19 135/64 (87) 100 09/27/19 04:00 30 09/27/19 04:00 76 09/27/19 03:29 68 18 100 Mechanical Ventilator 30 71 18 30 09/27/19 00:37 76 18 100 Mechanical Ventilator 30 74 18 30 09/27/19 00:00 97.2 80 18 148/74 (98) 100 09/27/19 00:00 Mechanical Ventilator Mechanical Ventilator Mechanical Ventilator Mechanical Ventilator 09/27/19 00:00 30 09/27/19 00:00 68 09/26/19 23:01 174/84 09/26/19 20:00 30 09/26/19 20:00 Mechanical Ventilator Mechanical Ventilator Mechanical Ventilator Mechanical Ventilator 09/26/19 20:00 97.0 80 18 174/84 (114) 100 09/26/19 20:00 80 09/26/19 19:40 73 18 100 Mechanical Ventilator 30 77 19 30 09/26/19 17:38 86 132/76 09/26/19 16:00 30 09/26/19 16:00 Mechanical Ventilator Mechanical Ventilator Mechanical Ventilator Mechanical Ventilator 09/26/19 16:00 96.8 84 18 136/70 (92) 99 09/26/19 15:20 81 18 100 Mechanical Ventilator 30 84 18 30 09/26/19 15:09 73 Intake and Output 09/26/19 09/27/19 19:00 07:00 Intake Total 520 ml 435 ml Output Total 250 ml 300 ml Balance 270 ml 135 ml Intake Free Water 100 ml 50 ml Tube Feeding 420 ml 385 ml Output Urine Total 250 ml 300 ml Laboratory Tests 09/27/19 03:41: White Blood Count 9.4, Red Blood Count 2.86L, Hemoglobin 8.7L, Hematocrit 25.6L , Mean Corpuscular Volume 89, Mean Corpuscular Hemoglobin 30.4, Mean Corpuscular Hemoglobin Concent 34.1, Red Cell Distribution Width 14.8, Platelet Count 407, Mean Platelet Volume 4.8L, Neutrophils (%) (Auto) 69.2, Lymphocytes ( %) (Auto) 24.6, Monocytes (%) (Auto) 3.3, Eosinophils (%) (Auto) 2.3, Basophils (%) (Auto) 0.7, Sodium Level 132L, Potassium Level 4.7, Chloride Level 95L, Carbon Dioxide Level 25, Anion Gap 12, Blood Urea Nitrogen 135H, Creatinine 4.0H , Estimat Glomerular Filtration Rate 10.8, Glucose Level 113H, Calcium Level 8.7 , Total Bilirubin 0.4, Aspartate Amino Transf (AST/SGOT) 415H, Alanine Aminotransferase (ALT/SGPT) 389H, Alkaline Phosphatase 489H, Total Protein 7.5, Albumin 2.4L, Globulin 5.1 Height (Feet): 5 Height (Inches): 4.00 Weight (Pounds): 112 Objective General Appearance: WD/WN, awake. looks around. no distress. thin and frail Neck: supple +trach Cardiovascular: normal rate Respiratory/Chest: rhonchi - bilaterally Abdomen: normal bowel sounds, non tender, soft, no organomegaly Edema: no edema noted Arm (L), no edema noted Arm (R), no edema noted Leg (L), no edema noted Leg (R), no edema noted Pedal (L), no edema noted Pedal (R), no edema noted Generalized Neurologic: disoriented, aphasia Skin: +excoriations Nate Beltran MD Sep 27, 2019 12:58
--- NOTE | 2019-09-27 13:31 | Surgery Progress Note ---
Surgery Progress Note Subjective Procedure Performed 1. tracheostomy 2 removal of left tube thoracostomy Additional Comments lft's improving likely shock liver exam unchanged ill appearing Objective Last 24 Hour Vital Signs Date Time Temp Pulse Resp B/P (MAP) Pulse Ox O2 Delivery O2 Flow Rate FiO2 09/27/19 12:00 97.0 76 20 139/73 (95) 100 09/27/19 12:00 30 09/27/19 12:00 Mechanical Ventilator Mechanical Ventilator Mechanical Ventilator Mechanical Ventilator 09/27/19 11:31 74 19 30 09/27/19 08:59 68 21 30 09/27/19 08:03 70 19 100 Mechanical Ventilator 30 71 20 30 09/27/19 08:00 96.4 71 23 143/69 (93) 100 09/27/19 08:00 Mechanical Ventilator Mechanical Ventilator Mechanical Ventilator Mechanical Ventilator 09/27/19 08:00 72 09/27/19 08:00 30 09/27/19 04:00 Mechanical Ventilator Mechanical Ventilator Mechanical Ventilator Mechanical Ventilator 09/27/19 04:00 97.4 76 19 135/64 (87) 100 09/27/19 04:00 30 09/27/19 04:00 76 09/27/19 03:29 68 18 100 Mechanical Ventilator 30 71 18 30 09/27/19 00:37 76 18 100 Mechanical Ventilator 30 74 18 30 09/27/19 00:00 97.2 80 18 148/74 (98) 100 09/27/19 00:00 Mechanical Ventilator Mechanical Ventilator Mechanical Ventilator Mechanical Ventilator 09/27/19 00:00 30 09/27/19 00:00 68 09/26/19 23:01 174/84 09/26/19 20:00 30 09/26/19 20:00 Mechanical Ventilator Mechanical Ventilator Mechanical Ventilator Mechanical Ventilator 09/26/19 20:00 97.0 80 18 174/84 (114) 100 09/26/19 20:00 80 09/26/19 19:40 73 18 100 Mechanical Ventilator 30 77 19 30 09/26/19 17:38 86 132/76 09/26/19 16:00 30 09/26/19 16:00 Mechanical Ventilator Mechanical Ventilator Mechanical Ventilator Mechanical Ventilator 09/26/19 16:00 96.8 84 18 136/70 (92) 99 09/26/19 15:20 81 18 100 Mechanical Ventilator 30 84 18 30 09/26/19 15:09 73 I&O Intake and Output 09/26/19 09/27/19 19:00 07:00 Intake Total 520 ml 435 ml Output Total 250 ml 300 ml Balance 270 ml 135 ml Intake Free Water 100 ml 50 ml Tube Feeding 420 ml 385 ml Output Urine Total 250 ml 300 ml Dressing: other Wound: other Drains: other Cardiovascular: RSR Respiratory: decreased breath sounds Abdomen: soft, non-tender, present bowel sounds Extremities: no cyanosis Laboratory Tests Test 09/27/19 03:41 White Blood Count 9.4 K/UL (4.8-10.8) Red Blood Count 2.86 M/UL (4.20-5.40) L Hemoglobin 8.7 G/DL (12.0-16.0) L Hematocrit 25.6 % (37.0-47.0) L Mean Corpuscular Volume 89 FL (80-99) Mean Corpuscular Hemoglobin 30.4 PG (27.0-31.0) Mean Corpuscular Hemoglobin Concent 34.1 G/DL (32.0-36.0) Red Cell Distribution Width 14.8 % (11.6-14.8) Platelet Count 407 K/UL (150-450) Mean Platelet Volume 4.8 FL (6.5-10.1) L Neutrophils (%) (Auto) 69.2 % (45.0-75.0) Lymphocytes (%) (Auto) 24.6 % (20.0-45.0) Monocytes (%) (Auto) 3.3 % (1.0-10.0) Eosinophils (%) (Auto) 2.3 % (0.0-3.0) Basophils (%) (Auto) 0.7 % (0.0-2.0) Sodium Level 132 MMOL/L (136-145) L Potassium Level 4.7 MMOL/L (3.5-5.1) Chloride Level 95 MMOL/L (98-107) L Carbon Dioxide Level 25 MMOL/L (21-32) Anion Gap 12 mmol/L (5-15) Blood Urea Nitrogen 135 mg/dL (7-18) H Creatinine 4.0 MG/DL (0.55-1.30) H Estimat Glomerular Filtration Rate 10.8 mL/min (>60) Glucose Level 113 MG/DL (74-106) H Calcium Level 8.7 MG/DL (8.5-10.1) Total Bilirubin 0.4 MG/DL (0.2-1.0) Aspartate Amino Transf (AST/SGOT) 415 U/L (15-37) H Alanine Aminotransferase (ALT/SGPT) 389 U/L (12-78) H Alkaline Phosphatase 489 U/L (46-116) H Total Protein 7.5 G/DL (6.4-8.2) Albumin 2.4 G/DL (3.4-5.0) L Globulin 5.1 g/dL Assessment Post-op Diagnosis same Plan Problems: (1) Malnutrition Assessment & Plan: DAILY ESTIMATED NEEDS: Needs based on ESRD+ HD, underweight, wound/ 39.5kg 35-40 kcals/kg 7992-9992 total kcals 1.25-1.8 g protein/kg 49-71 g total protein 20-22 mL/kg 790-869 total fluid mLs NUTRITION DIAGNOSIS: * Increased kcal and protein needs r/t underweight status, HD needs, wuond healing as evidenced by pt is underweight per guidelines, ESRD, on HD, admitted non-blanching erythema wounds @ BL heels and sacrum * Swallowing difficulty R/T dysphagia as evidenced by [facility] recommends temporary nonoral feeding at this time, s/p NGT insertion, on NGT feeding-> now s/p self removal, NPO. CURRENT TF:NPO PO DIET RECOMMENDATIONS: WHEN SAFE FOR ORAL DIET -> renal/ texture per [facility] ENTERAL NUTRITION RECOMMENDATIONS: W/ GI access: Nepro @ 35ml/hr x 22 hrs to provide 770ml, 1386kcal, 62g prot, 560ml free water * W/ GI access, resume TF on Nepro * Initiate Nepro @ 15ml/hr x 6 hrs, advance 10ml q 4-6 hrs as tolerated to goal rate. * Hold 1 hour before and after Synthroid med * HOB over 30 degrees/ water flush per MD. ADDITIONAL RECOMMENDATIONS: 1) Calibrated bed scale wt for accurate CBW -> daily wt monitoring Per HD record: dry wt on 07/30=39.5kg (87lbs) 2) Wound care: (W/ GI access) add Nephorivte x 1 + Balta BID 3) Monitor NPO status: without GI access at this time, s/p pulling out NGT 4) Monitor for hypoglycemia while NPO 5) Monitor for continuity of HD (2) Septic arthritis Assessment & Plan: Pt presented on admission with generalized scaly rash . pt noted to be restless and scratching at skin. Bleeding from oral mucosa noted. Joint deformity noted to R shoulder. Surgical incision approximated with 11 sutures. Erythema but no exudate,or elevation in skin temp at site of incision. Historical incision R hip that is tunneled.Small amt seropurulent exudate noted. Periwound is erythematous,but no elevation in skin temp noted. No odor noted. Non-blanching erythema noted to sacrum. Perianal area is erythematous and excoriated. L heel is boggy with non-blanching erythema. R heel is soft with non-blanching erythema. No evidence of skin breakdown to all other bony prominences. Tx.plan: Cover R shoulder with Drsg and change daily and prn. Cleanse R hip wound with Saline. Apply Therahoney.Apply Cavilon Skin Barrier periwound. Cover with Optifoam drsg. Change every 3 days and prn. Apply Moisture Barrier Paste to perianal area and buttocks. Cover Sacrum with Optifoam drsg. Change every 3 days and prn. Apply Cavilon Skin Barrier to both heels. Cover each heel with Optifoam drsg. Change every 7 days and prn. APM/ELVIA Mattress overlay. Reposition at least every 2hours or as tolerated. Off-load heels with pillow. HD cath necessary HD as renal likely will need intubation 19 x 11 x 11 mm hypoechoic area in the liver adjacent to the gallbladder fossa. Although location is typical for area of focal sparing in a fatty liver, there are no findings to indicate fatty liver and this is a new finding since fairly recent previous exam. Therefore the possibility of a process such as small abscess should be considered. Atrophic echogenic kidneys Negative for gallstones or dilated bile ducts (3) Wound, open, hip or thigh with complication Assessment & Plan: slow healing will need nutritional optimization difficult ng tube peg when stable sutures removed from right shoulder comfortable wean vent may need trach (4) Abscess of right hip (5) possible septic arthritis (6) Renal failure (ARF), acute on chronic Assessment & Plan: cont HD will need tunneled cath placement okay to use fem line for now but will need change soon. line monitored and clean dressings going well (7) Pneumonia Assessment & Plan: intubated on vent support not tolerating weaning may need trach hemothorax likely after thoracentesis Chest CT noted Left chest tube placed With plan for trach chest tube can be considered but overall prognosis is very poor s/p trach left chest tub eout cxr noted and okay downgrade left pleural effusion dressings saturated will need to monitor. may need another chest tube as may not heal well on left side Anasarca, with as mentioned above diffuse edema of the soft tissues, trace ascites, and bilateral pleural effusions No hepatic abnormality to correlate with suspected small pericholecystic lesion in the liver described on recent sonogram. The lesion may be occult on noncontrast CT, may have been artifactual or may have resolved in the interim. Consider repeat sonography in a few days to assess progression No definite acute abdominal process otherwise Improved but still sizable left pleural effusion with minimal residual hemoperitoneum since prior CT scan of 09/01/2019. There is near complete atelectasis of the left lower lobe. There is a small right pleural effusion with atelectatic changes of the right lower lobe and right perihilar dense consolidation. These appear improved since a prior CT of 09/01/2019 Increased crazy paving type opacity within the right middle lobe since previous August [address], may reflect an area of increasing infiltrate, versus focal edema. There is also some dense consolidation of the perihilar right lower lobe which is improved since the previous August 31 CT Right groin temporary dialysis catheter in good position Atrophic kidneys, consistent with known history of chronic renal disease L2 compression fracture deformity, and advanced degenerative changes of the L2- L3 disc. Similar to prior study Marroquin catheter hold on repeat chest tube (8) Liver enzyme elevation Assessment & Plan: likely shock liver improving trend Camilo James Sep 27, 2019 13:31
--- NOTE | 2019-09-27 15:18 | General Progress Note ---
Assessment/Plan Problem List: (1) Hypothyroid ICD Codes: E03.9 - Hypothyroidism, unspecified SNOMED: 76186126 (2) ESRD (end stage renal disease) on dialysis ICD Codes: N18.6 - End stage renal disease; Z99.2 - Dependence on renal dialysis SNOMED: 712526641 (3) Hypotension ICD Codes: I95.9 - Hypotension, unspecified SNOMED: 73620202 Qualifiers: Qualified Codes: I95.3 - Hypotension of hemodialysis (4) Pneumonia ICD Codes: J18.9 - Pneumonia, unspecified organism SNOMED: 603887503 Qualifiers: Qualified Codes: J18.9 - Pneumonia, unspecified organism (5) Diabetes mellitus ICD Codes: E11.9 - Type 2 diabetes mellitus without complications SNOMED: 80578511 Status: stable, not improved, unchanged, deteriorating Assessment/Plan: continue Levothyroxine tablet 125 mcg daily repeat TSH, free 4 tomorrow continue glucose monitoring without insulin coverage hypoglycemia protocol in order Subjective ROS Limited/Unobtainable: Yes Allergies: Coded Allergies: VANCOMYCIN (Unverified Allergy, Unknown, 08/02/19) Subjective events noted interval notes reviewed glucose values are stable on vent on TF Item Value Date Time Glucose Level 113 MG/DL H 09/27/19 0341 Objective Last 24 Hour Vital Signs Date Time Temp Pulse Resp B/P (MAP) Pulse Ox O2 Delivery O2 Flow Rate FiO2 09/27/19 14:58 71 18 100 Mechanical Ventilator 30 72 18 30 09/27/19 13:53 69 20 30 09/27/19 12:00 97.0 76 20 139/73 (95) 100 09/27/19 12:00 30 09/27/19 12:00 Mechanical Ventilator Mechanical Ventilator Mechanical Ventilator Mechanical Ventilator 09/27/19 11:31 74 19 100 Mechanical Ventilator 30 75 20 30 09/27/19 08:59 68 21 30 09/27/19 08:03 70 19 100 Mechanical Ventilator 30 71 20 30 09/27/19 08:00 96.4 71 23 143/69 (93) 100 09/27/19 08:00 Mechanical Ventilator Mechanical Ventilator Mechanical Ventilator Mechanical Ventilator 09/27/19 08:00 72 09/27/19 08:00 30 09/27/19 04:00 Mechanical Ventilator Mechanical Ventilator Mechanical Ventilator Mechanical Ventilator 09/27/19 04:00 97.4 76 19 135/64 (87) 100 09/27/19 04:00 30 09/27/19 04:00 76 09/27/19 03:29 68 18 100 Mechanical Ventilator 30 71 18 30 09/27/19 00:37 76 18 100 Mechanical Ventilator 30 74 18 30 09/27/19 00:00 97.2 80 18 148/74 (98) 100 09/27/19 00:00 Mechanical Ventilator Mechanical Ventilator Mechanical Ventilator Mechanical Ventilator 09/27/19 00:00 30 09/27/19 00:00 68 09/26/19 23:01 174/84 09/26/19 20:00 30 09/26/19 20:00 Mechanical Ventilator Mechanical Ventilator Mechanical Ventilator Mechanical Ventilator 09/26/19 20:00 97.0 80 18 174/84 (114) 100 09/26/19 20:00 80 09/26/19 19:40 73 18 100 Mechanical Ventilator 30 77 19 30 09/26/19 17:38 86 132/76 09/26/19 16:00 30 09/26/19 16:00 Mechanical Ventilator Mechanical Ventilator Mechanical Ventilator Mechanical Ventilator 09/26/19 16:00 96.8 84 18 136/70 (92) 99 09/26/19 15:20 81 18 100 Mechanical Ventilator 30 84 18 30 Intake and Output 09/26/19 09/27/19 19:00 07:00 Intake Total 520 ml 435 ml Output Total 250 ml 300 ml Balance 270 ml 135 ml Intake Free Water 100 ml 50 ml Tube Feeding 420 ml 385 ml Output Urine Total 250 ml 300 ml Laboratory Tests 09/27/19 03:41: White Blood Count 9.4, Red Blood Count 2.86L, Hemoglobin 8.7L, Hematocrit 25.6L , Mean Corpuscular Volume 89, Mean Corpuscular Hemoglobin 30.4, Mean Corpuscular Hemoglobin Concent 34.1, Red Cell Distribution Width 14.8, Platelet Count 407, Mean Platelet Volume 4.8L, Neutrophils (%) (Auto) 69.2, Lymphocytes ( %) (Auto) 24.6, Monocytes (%) (Auto) 3.3, Eosinophils (%) (Auto) 2.3, Basophils (%) (Auto) 0.7, Sodium Level 132L, Potassium Level 4.7, Chloride Level 95L, Carbon Dioxide Level 25, Anion Gap 12, Blood Urea Nitrogen 135H, Creatinine 4.0H , Estimat Glomerular Filtration Rate 10.8, Glucose Level 113H, Calcium Level 8.7 , Total Bilirubin 0.4, Aspartate Amino Transf (AST/SGOT) 415H, Alanine Aminotransferase (ALT/SGPT) 389H, Alkaline Phosphatase 489H, Total Protein 7.5, Albumin 2.4L, Globulin 5.1 Height (Feet): 5 Height (Inches): 4.00 Weight (Pounds): 112 General Appearance: cachetic Neck: normal alignment Cardiovascular: normal rate Respiratory/Chest: decreased breath sounds Pelvis: normal external exam Objective Current Medications Medications (Trade) Dose Ordered Sig/Javier Route PRN Reason Start Time Stop Time Status Last Admin Dose Admin Acetylcysteine (Mucomyst) 100 mg Q4HRT N 08/31/19 19:00 11/29/19 18:59 09/27/19 14:58 Albuterol/ Ipratropium (Albuterol/ Ipratropium) 3 ml Q4HRT N 09/22/19 15:00 12/09/19 14:59 09/27/19 14:58 Amlodipine Besylate (Norvasc) 5 mg BID ORAL 09/25/19 09:00 10/25/19 08:59 09/26/19 17:38 Chlorhexidine Gluconate (Nae-Hex 2%) 1 applic DAILY@1999 TOPIC 09/17/19 20:00 12/16/19 19:59 09/26/19 23:00 Clonidine HCl (Catapres Tab) 0.1 mg Q4H PRN ORAL For High Blood Pressure 09/22/19 21:00 12/21/19 20:59 09/26/19 23:01 Dextrose (Dextrose 50%) 25 ml Q30M PRN IV Hypoglycemia 09/02/19 06:15 12/01/19 06:14 09/04/19 12:11 Dextrose (Dextrose 50%) 50 ml Q30M PRN IV Hypoglycemia 09/02/19 06:15 12/01/19 06:14 Lansoprazole (Prevacid) 30 mg DAILY GT 09/27/19 09:00 10/27/19 08:59 09/27/19 09:31 Levothyroxine Sodium (Synthroid) 125 mcg DAILY@0630 ORAL 09/22/19 06:30 5/9/20 06:29 09/27/19 06:06 Psyllium Hydrophilic Mucilloid (Metamucil) 1 pkt DAILY ORAL 09/22/19 15:00 10/22/19 14:59 09/27/19 09:31 Sevelamer Carbonate (Renvela) 800 mg Q8HR NG 09/25/19 14:00 12/24/19 13:59 09/27/19 13:16 Antonio Jacome MD Sep 27, 2019 15:18
[2019-09-27 16:00] VITALS: BP 124/78
--- NOTE | 2019-09-27 19:09 | Nephrology Progress Note ---
Assessment/Plan Problem List: (1) Liver enzyme elevation Assessment: Acute (2) ESRD (end stage renal disease) on dialysis (3) Malnutrition (4) Anemia in CKD (chronic kidney disease) (5) Hypotension (6) Thrombocytopenia (7) Sepsis Assessment: klebsiella in blood Assessment -Early sepsis with shock. -Healthcare-associated pneumonia. -Severe protein-calorie malnutrition. -Thrombocytopenia. - End-stage renal disease. - History of hypertension. - Bradycardia. - HypoThyroid Plan Labs reviewed Liver enzymes rising, hepatitis panel ordered today's labs indicates lowering of liver enzymes Tracheostomy September 07 Last dialysis September 20 done Next hemodialysis September 26 Chest tube on the left side was put in on September 01 was discontinued September 07 Patient transfused 3 units of packed RBCs for low hemoglobin Remains full code Blood pressure fluctuating, will start hydralazine via NG tube for blood pressure Magnesium and potassium supplement intravenously as needed Patient underwent PEG placement August 16 patient remains intubated on ventilator Discussed with RN Aim to wean from ventilator or consider tracheostomy Permacath was removed on August 12 Dialysis 08/11 Transfusion as needed Patient had hematemesis meds IV as possible Surveillance blood cultures tomorrow Plan to put the permacath back in on Thursday if cultures are negative keep BP and BS in check Inflammatory markers per orders Subjective ROS Limited/Unobtainable: Yes Objective Objective Last 24 Hour Vital Signs Date Time Temp Pulse Resp B/P (MAP) Pulse Ox O2 Delivery O2 Flow Rate FiO2 09/27/19 18:12 71 124/78 09/27/19 16:57 70 19 30 09/27/19 16:00 85 09/27/19 14:58 71 18 100 Mechanical Ventilator 30 72 18 30 09/27/19 13:53 69 20 30 09/27/19 12:00 85 09/27/19 12:00 97.0 76 20 139/73 (95) 100 09/27/19 12:00 30 09/27/19 12:00 Mechanical Ventilator Mechanical Ventilator Mechanical Ventilator Mechanical Ventilator 09/27/19 11:31 74 19 100 Mechanical Ventilator 30 75 20 30 09/27/19 08:59 68 21 30 09/27/19 08:03 70 19 100 Mechanical Ventilator 30 71 20 30 09/27/19 08:00 96.4 71 23 143/69 (93) 100 09/27/19 08:00 Mechanical Ventilator Mechanical Ventilator Mechanical Ventilator Mechanical Ventilator 09/27/19 08:00 72 09/27/19 08:00 30 09/27/19 04:00 Mechanical Ventilator Mechanical Ventilator Mechanical Ventilator Mechanical Ventilator 09/27/19 04:00 97.4 76 19 135/64 (87) 100 09/27/19 04:00 30 09/27/19 04:00 76 09/27/19 03:29 68 18 100 Mechanical Ventilator 30 71 18 30 09/27/19 00:37 76 18 100 Mechanical Ventilator 30 74 18 30 09/27/19 00:00 97.2 80 18 148/74 (98) 100 09/27/19 00:00 Mechanical Ventilator Mechanical Ventilator Mechanical Ventilator Mechanical Ventilator 09/27/19 00:00 30 09/27/19 00:00 68 09/26/19 23:01 174/84 09/26/19 20:00 30 09/26/19 20:00 Mechanical Ventilator Mechanical Ventilator Mechanical Ventilator Mechanical Ventilator 09/26/19 20:00 97.0 80 18 174/84 (114) 100 09/26/19 20:00 80 09/26/19 19:40 73 18 100 Mechanical Ventilator 30 77 19 30 Intake and Output 09/26/19 09/27/19 19:00 07:00 Intake Total 520 ml 435 ml Output Total 250 ml 300 ml Balance 270 ml 135 ml Intake Free Water 100 ml 50 ml Tube Feeding 420 ml 385 ml Output Urine Total 250 ml 300 ml Laboratory Tests 09/27/19 03:41: White Blood Count 9.4, Red Blood Count 2.86L, Hemoglobin 8.7L, Hematocrit 25.6L , Mean Corpuscular Volume 89, Mean Corpuscular Hemoglobin 30.4, Mean Corpuscular Hemoglobin Concent 34.1, Red Cell Distribution Width 14.8, Platelet Count 407, Mean Platelet Volume 4.8L, Neutrophils (%) (Auto) 69.2, Lymphocytes ( %) (Auto) 24.6, Monocytes (%) (Auto) 3.3, Eosinophils (%) (Auto) 2.3, Basophils (%) (Auto) 0.7, Sodium Level 132L, Potassium Level 4.7, Chloride Level 95L, Carbon Dioxide Level 25, Anion Gap 12, Blood Urea Nitrogen 135H, Creatinine 4.0H , Estimat Glomerular Filtration Rate 10.8, Glucose Level 113H, Calcium Level 8.7 , Total Bilirubin 0.4, Aspartate Amino Transf (AST/SGOT) 415H, Alanine Aminotransferase (ALT/SGPT) 389H, Alkaline Phosphatase 489H, Total Protein 7.5, Albumin 2.4L, Globulin 5.1 Height (Feet): 5 Height (Inches): 4.00 Weight (Pounds): 112 General Appearance: no apparent distress EENT: other - Trach and vent Cardiovascular: normal rate Respiratory/Chest: decreased breath sounds Abdomen: distended Objective no change William Blackwood MD Sep 27, 2019 19:09
[2019-09-27 20:00] VITALS: BP 119/67
[2019-09-27] MEDS: Dyna-Hex 2% Top Sol 2oz TOPIC SCH (21:10)
[2019-09-28] VITALS: BP 151/82
[2019-09-28] MEDS: Albuterol/Ipratropium 3ml neb HHN SCH ×6 (03:53→23:15)
[2019-09-28 04:00] VITALS: BP 155/81
[2019-09-28] MEDS: Renvela 800mg Pkt NG SCH ×3 (05:30→13:30)
[2019-09-28] MEDS: Levothyroxine 125mcg tab ORAL SCH (05:31)
[2019-09-28 07:27] LABS: BASOPHILS % (AUTO) 0.9 % (0.0-2.0); EOSINOPHILS % (AUTO) 1.9 % (0.0-3.0); HEMATOCRIT 23.9 % (37.0-47.0); HEMOGLOBIN 8.2 G/DL (12.0-16.0); LYMPHOCYTES % (AUTO) 31.3 % (20.0-45.0); MEAN CORPUSCULAR VOLUME 89 FL (80-99); MONOCYTES % (AUTO) 5.2 % (1.0-10.0); NEUTROPHILS % (AUTO) 60.7 % (45.0-75.0); PLATELET COUNT 368 K/UL (150-450); RED BLOOD COUNT 2.69 M/UL (4.20-5.40); WHITE BLOOD COUNT 7.5 K/UL (4.8-10.8)
--- NOTE | 2019-09-28 07:30 | Progress Note ---
DATE: 09/27/2019 CARDIOLOGY PROGRESS NOTE SUBJECTIVE: The patient remains on ventilator support via trach. Feedings are tolerated. Liver function studies improving. The patient has been off hydralazine for several days. PHYSICAL EXAMINATION: VITAL SIGNS: Blood pressure 142/69, pulse 71, respirations 23, afebrile. LUNGS: Bilateral breath sounds. No wheezing. Thin secretions. CARDIAC: Regular rhythm and rate. Normal S1, S2. ABDOMEN: Soft. EXTREMITIES: Trace edema. LABORATORY DATA: White count 9.4, hemoglobin 8.7. Liver function studies down to the 400 range. IMPRESSION: 1. Transaminitis, improving, may have been due to hydralazine, this remains to be . 2. End-stage renal disease, volume overload with persistently elevated natriuretic peptide assay. 3. Imaging studies showed diffuse edema of tissues. 4. Ventilator-dependent respiratory failure. 5. Acute on chronic diastolic congestive heart failure. 6. Sinus node disease. 7. Hypothyroidism. PLAN: Continue to follow liver function studies. Remain off hydralazine. Titrate remaining antihypertensives. Increase ultrafiltration. Maintain thyroid replacement, may be beneficial to hold feedings for some time before and after thyroid dose to improve absorption. Abel Stubbs M.D. DR: BOOM JOB#: [id number] CC:
[2019-09-28 07:57] LABS: ALANINE AMINOTRANSFERASE 344 U/L (12-78); ALBUMIN 2.1 G/DL (3.4-5.0); ALBUMIN/GLOBULIN RATIO 0.4 (1.0-2.7); ALKALINE PHOSPHATASE 424 U/L (46-116); ANION GAP 13 mmol/L (5-15); ASPARTATE AMINO TRANSFERASE 344 U/L (15-37); BILIRUBIN,TOTAL 0.5 MG/DL (0.2-1.0); BLOOD UREA NITROGEN 80 mg/dL (7-18); CALCIUM 8.6 MG/DL (8.5-10.1); CARBON DIOXIDE 26 MMOL/L (21-32); CHLORIDE 104 MMOL/L (98-107); CREATININE 2.7 MG/DL (0.55-1.30); POTASSIUM 3.9 MMOL/L (3.5-5.1); SODIUM 143 MMOL/L (136-145)
[2019-09-28 08:15] VITALS: BP 154/84
[2019-09-28] MEDS: Metamucil Pkt ORAL SCH (08:34)
--- NOTE | 2019-09-28 08:54 | General Progress Note ---
Assessment/Plan Status: stable, not improved, unchanged, deteriorating Assessment/Plan: Assessment - Severe ulcerative esophagitis - mild elevation in LFT, Hepatitis B/C negative --> now sudden rise - ? related to new 1.9 cm mass near GB - ? autoimmune / high ESR - abnormal liver on CT - ? chronic disease / fibrosis - Resp failure - trach - s/p recent Chest tube and removal - Renal failure - aspiration risk --> s/p PEG - anemia - bradycardia - Poor prognosis Recommendations - CT reviewed -? shock liver. Repeat in am>>> improving - check autoimmune markers - pending>>> neg JOLIE - check AFP - GT care - water flushes - elevate HOB - monitor H&H - ppi -check stool ob - vent -improving LFTS Subjective ROS Limited/Unobtainable: No Allergies: Coded Allergies: VANCOMYCIN (Unverified Allergy, Unknown, 08/02/19) Subjective s/p blood transfusion Objective Last 24 Hour Vital Signs Date Time Temp Pulse Resp B/P (MAP) Pulse Ox O2 Delivery O2 Flow Rate FiO2 09/28/19 08:35 159 81/69 09/28/19 05:24 78 18 30 09/28/19 04:00 98.2 84 18 155/81 (105) 100 09/28/19 04:00 Mechanical Ventilator Mechanical Ventilator Mechanical Ventilator Mechanical Ventilator 09/28/19 04:00 30 09/28/19 03:34 80 09/28/19 03:30 80 18 98 Mechanical Ventilator 30 82 24 30 09/28/19 00:41 80 18 30 09/28/19 00:00 30 09/28/19 00:00 97.9 78 18 151/82 (105) 100 09/28/19 00:00 Mechanical Ventilator Mechanical Ventilator Mechanical Ventilator Mechanical Ventilator 09/27/19 23:30 77 18 96 Mechanical Ventilator 30 79 20 30 09/27/19 23:28 78 09/27/19 21:18 82 18 30 09/27/19 20:00 30 09/27/19 20:00 Mechanical Ventilator Mechanical Ventilator Mechanical Ventilator Mechanical Ventilator 09/27/19 20:00 97.2 79 24 119/67 (84) 92 09/27/19 19:34 79 09/27/19 19:30 83 18 94 Mechanical Ventilator 30 88 18 30 09/27/19 18:12 71 124/78 4/14/20 16:57 70 19 30 09/27/19 16:00 96.6 75 21 124/78 (93) 100 09/27/19 16:00 30 09/27/19 16:00 85 09/27/19 16:00 Mechanical Ventilator Mechanical Ventilator Mechanical Ventilator Mechanical Ventilator 09/27/19 14:58 71 18 100 Mechanical Ventilator 30 72 18 30 09/27/19 13:53 69 20 30 09/27/19 12:00 85 09/27/19 12:00 97.0 76 20 139/73 (95) 100 09/27/19 12:00 30 09/27/19 12:00 Mechanical Ventilator Mechanical Ventilator Mechanical Ventilator Mechanical Ventilator 09/27/19 11:31 74 19 100 Mechanical Ventilator 30 75 20 30 09/27/19 08:59 68 21 30 Intake and Output 09/27/19 09/28/19 19:00 07:00 Intake Total 510 ml 385 ml Output Total 1300 ml 300 ml Balance -790 ml 85 ml Intake Free Water 90 ml Tube Feeding 420 ml 385 ml Output Urine Total 300 ml 300 ml Hemodialysis UF 1000 ml # Bowel Movements 1 2 Laboratory Tests 09/28/19 03:17: White Blood Count 7.5, Red Blood Count 2.69L, Hemoglobin 8.2L, Hematocrit 23.9L , Mean Corpuscular Volume 89, Mean Corpuscular Hemoglobin 30.4, Mean Corpuscular Hemoglobin Concent 34.2, Red Cell Distribution Width 15.0H, Platelet Count 368, Mean Platelet Volume 4.5L, Neutrophils (%) (Auto) 60.7, Lymphocytes (%) (Auto) 31.3, Monocytes (%) (Auto) 5.2, Eosinophils (%) (Auto) 1.9, Basophils (%) (Auto) 0.9, Sodium Level 143#, Potassium Level 3.9, Chloride Level 104, Carbon Dioxide Level 26, Anion Gap 13, Blood Urea Nitrogen 80H, Creatinine 2.7H, Estimat Glomerular Filtration Rate 17.0, Glucose Level 72L, Calcium Level 8.6, Total Bilirubin 0.5, Aspartate Amino Transf (AST/SGOT) 344H, Alanine Aminotransferase (ALT/SGPT) 344H, Alkaline Phosphatase 424H, Total Protein 6.9, Albumin 2.1L, Globulin 4.8, Albumin/Globulin Ratio 0.4L Height (Feet): 5 Height (Inches): 4.00 Weight (Pounds): 112 General Appearance: alert EENT: normal ENT inspection Neck: supple Cardiovascular: normal rate Respiratory/Chest: decreased breath sounds Abdomen: normal bowel sounds, non tender, soft Extremities: non-tender Kenny Rudolph MD Sep 28, 2019 08:54
--- NOTE | 2019-09-28 08:59 | General Progress Note ---
Assessment/Plan Problem List: (1) Hypothyroid ICD Codes: E03.9 - Hypothyroidism, unspecified SNOMED: 00698814 (2) ESRD (end stage renal disease) on dialysis ICD Codes: N18.6 - End stage renal disease; Z99.2 - Dependence on renal dialysis SNOMED: 356484442 (3) Hypotension ICD Codes: I95.9 - Hypotension, unspecified SNOMED: 58774262 Qualifiers: Qualified Codes: I95.3 - Hypotension of hemodialysis (4) Pneumonia ICD Codes: J18.9 - Pneumonia, unspecified organism SNOMED: 453671226 Qualifiers: Qualified Codes: J18.9 - Pneumonia, unspecified organism (5) Diabetes mellitus ICD Codes: E11.9 - Type 2 diabetes mellitus without complications SNOMED: 85158056 Status: stable, not improved, unchanged, deteriorating Assessment/Plan: continue Levothyroxine tablet 125 mcg daily repeat TSH, free 4 continue glucose monitoring without insulin coverage hypoglycemia protocol in order Subjective ROS Limited/Unobtainable: Yes Allergies: Coded Allergies: VANCOMYCIN (Unverified Allergy, Unknown, 08/02/19) Subjective events noted interval notes reviewed glucose values are stable on vent on TF Objective Last 24 Hour Vital Signs Date Time Temp Pulse Resp B/P (MAP) Pulse Ox O2 Delivery O2 Flow Rate FiO2 09/28/19 08:35 159 81/69 09/28/19 05:24 78 18 30 09/28/19 04:00 98.2 84 18 155/81 (105) 100 09/28/19 04:00 Mechanical Ventilator Mechanical Ventilator Mechanical Ventilator Mechanical Ventilator 09/28/19 04:00 30 09/28/19 03:34 80 09/28/19 03:30 80 18 98 Mechanical Ventilator 30 82 24 30 09/28/19 00:41 80 18 30 09/28/19 00:00 30 09/28/19 00:00 97.9 78 18 151/82 (105) 100 09/28/19 00:00 Mechanical Ventilator Mechanical Ventilator Mechanical Ventilator Mechanical Ventilator 09/27/19 23:30 77 18 96 Mechanical Ventilator 30 79 20 30 09/27/19 23:28 78 09/27/19 21:18 82 18 30 09/27/19 20:00 30 09/27/19 20:00 Mechanical Ventilator Mechanical Ventilator Mechanical Ventilator Mechanical Ventilator 09/27/19 20:00 97.2 79 24 119/67 (84) 92 09/27/19 19:34 79 09/27/19 19:30 83 18 94 Mechanical Ventilator 30 88 18 30 09/27/19 18:12 71 124/78 09/27/19 16:57 70 19 30 09/27/19 16:00 96.6 75 21 124/78 (93) 100 09/27/19 16:00 30 09/27/19 16:00 85 09/27/19 16:00 Mechanical Ventilator Mechanical Ventilator Mechanical Ventilator Mechanical Ventilator 09/27/19 14:58 71 18 100 Mechanical Ventilator 30 72 18 30 09/27/19 13:53 69 20 30 09/27/19 12:00 85 09/27/19 12:00 97.0 76 20 139/73 (95) 100 09/27/19 12:00 30 09/27/19 12:00 Mechanical Ventilator Mechanical Ventilator Mechanical Ventilator Mechanical Ventilator 09/27/19 11:31 74 19 100 Mechanical Ventilator 30 75 20 30 09/27/19 08:59 68 21 30 Intake and Output 09/27/19 09/28/19 19:00 07:00 Intake Total 510 ml 385 ml Output Total 1300 ml 300 ml Balance -790 ml 85 ml Intake Free Water 90 ml Tube Feeding 420 ml 385 ml Output Urine Total 300 ml 300 ml Hemodialysis UF 1000 ml # Bowel Movements 1 2 Laboratory Tests 09/28/19 03:17: White Blood Count 7.5, Red Blood Count 2.69L, Hemoglobin 8.2L, Hematocrit 23.9L , Mean Corpuscular Volume 89, Mean Corpuscular Hemoglobin 30.4, Mean Corpuscular Hemoglobin Concent 34.2, Red Cell Distribution Width 15.0H, Platelet Count 368, Mean Platelet Volume 4.5L, Neutrophils (%) (Auto) 60.7, Lymphocytes (%) (Auto) 31.3, Monocytes (%) (Auto) 5.2, Eosinophils (%) (Auto) 1.9, Basophils (%) (Auto) 0.9, Sodium Level 143#, Potassium Level 3.9, Chloride Level 104, Carbon Dioxide Level 26, Anion Gap 13, Blood Urea Nitrogen 80H, Creatinine 2.7H, Estimat Glomerular Filtration Rate 17.0, Glucose Level 72L, Calcium Level 8.6, Total Bilirubin 0.5, Aspartate Amino Transf (AST/SGOT) 344H, Alanine Aminotransferase (ALT/SGPT) 344H, Alkaline Phosphatase 424H, Total Protein 6.9, Albumin 2.1L, Globulin 4.8, Albumin/Globulin Ratio 0.4L Height (Feet): 5 Height (Inches): 4.00 Weight (Pounds): 112 General Appearance: cachetic Neck: normal alignment Cardiovascular: normal rate Respiratory/Chest: decreased breath sounds Abdomen: normal bowel sounds Pelvis: normal external exam Objective Current Medications Medications (Trade) Dose Ordered Sig/Javier Route PRN Reason Start Time Stop Time Status Last Admin Dose Admin Acetylcysteine (Mucomyst) 100 mg Q4HRT N 08/31/19 19:00 11/29/19 18:59 09/28/19 08:36 Albuterol/ Ipratropium (Albuterol/ Ipratropium) 3 ml Q4HRT N 09/22/19 15:00 12/09/19 14:59 09/28/19 08:35 Amlodipine Besylate (Norvasc) 5 mg BID ORAL 09/25/19 09:00 10/25/19 08:59 09/28/19 08:35 Chlorhexidine Gluconate (Nae-Hex 2%) 1 applic DAILY@2000 TOPIC 09/17/19 20:00 12/16/19 19:59 09/27/19 21:10 Clonidine HCl (Catapres Tab) 0.1 mg Q4H PRN ORAL For High Blood Pressure 09/22/19 21:00 12/21/19 20:59 09/26/19 23:01 Dextrose (Dextrose 50%) 25 ml Q30M PRN IV Hypoglycemia 09/02/19 06:15 12/01/19 06:14 09/04/19 12:11 Dextrose (Dextrose 50%) 50 ml Q30M PRN IV Hypoglycemia 09/02/19 06:15 12/01/19 06:14 Lansoprazole (Prevacid) 30 mg DAILY GT 09/27/19 09:00 10/27/19 08:59 09/28/19 08:34 Levothyroxine Sodium (Synthroid) 125 mcg DAILY@0630 ORAL 09/22/19 06:30 10/22/19 06:29 09/28/19 05:31 Psyllium Hydrophilic Mucilloid (Metamucil) 1 pkt DAILY ORAL 09/22/19 15:00 10/22/19 14:59 09/28/19 08:34 Sevelamer Carbonate (Renvela) 800 mg Q8HR NG 09/25/19 14:00 12/24/19 13:59 09/28/19 05:30 Antonio Jacome MD Sep 28, 2019 08:59
--- NOTE | 2019-09-28 09:44 | Surgery Progress Note ---
Surgery Progress Note Subjective Procedure Performed 1. tracheostomy 2 removal of left tube thoracostomy Additional Comments no acute events comfortable on support Objective Last 24 Hour Vital Signs Date Time Temp Pulse Resp B/P (MAP) Pulse Ox O2 Delivery O2 Flow Rate FiO2 09/28/19 08:35 159 81/69 09/28/19 05:24 78 18 30 09/28/19 04:00 98.2 84 18 155/81 (105) 100 09/28/19 04:00 Mechanical Ventilator Mechanical Ventilator Mechanical Ventilator Mechanical Ventilator 09/28/19 04:00 30 09/28/19 03:34 80 09/28/19 03:30 80 18 98 Mechanical Ventilator 30 82 24 30 09/28/19 00:41 80 18 30 09/28/19 00:00 30 09/28/19 00:00 97.9 78 18 151/82 (105) 100 09/28/19 00:00 Mechanical Ventilator Mechanical Ventilator Mechanical Ventilator Mechanical Ventilator 09/27/19 23:30 77 18 96 Mechanical Ventilator 30 79 20 30 09/27/19 23:28 78 09/27/19 21:18 82 18 30 09/27/19 20:00 30 09/27/19 20:00 Mechanical Ventilator Mechanical Ventilator Mechanical Ventilator Mechanical Ventilator 09/27/19 20:00 97.2 79 24 119/67 (84) 92 09/27/19 19:34 79 09/27/19 19:30 83 18 94 Mechanical Ventilator 30 88 18 30 09/27/19 18:12 71 124/78 09/27/19 16:57 70 19 30 09/27/19 16:00 96.6 75 21 124/78 (93) 100 09/27/19 16:00 30 09/27/19 16:00 85 09/27/19 16:00 Mechanical Ventilator Mechanical Ventilator Mechanical Ventilator Mechanical Ventilator 09/27/19 14:58 71 18 100 Mechanical Ventilator 30 72 18 30 09/27/19 13:53 69 20 30 09/27/19 12:00 85 09/27/19 12:00 97.0 76 20 139/73 (95) 100 09/27/19 12:00 30 09/27/19 12:00 Mechanical Ventilator Mechanical Ventilator Mechanical Ventilator Mechanical Ventilator 09/27/19 11:31 74 19 100 Mechanical Ventilator 30 75 20 30 I&O Intake and Output 09/27/19 09/28/19 19:00 07:00 Intake Total 510 ml 385 ml Output Total 1300 ml 300 ml Balance -790 ml 85 ml Intake Free Water 90 ml Tube Feeding 420 ml 385 ml Output Urine Total 300 ml 300 ml Hemodialysis UF 1000 ml # Bowel Movements 1 2 Dressing: dry Wound: clean Cardiovascular: RSR Respiratory: decreased breath sounds Abdomen: soft, non-tender, present bowel sounds Extremities: no edema, no tenderness, no cyanosis Laboratory Tests Test 09/28/19 03:17 White Blood Count 7.5 K/UL (4.8-10.8) Red Blood Count 2.69 M/UL (4.20-5.40) L Hemoglobin 8.2 G/DL (12.0-16.0) L Hematocrit 23.9 % (37.0-47.0) L Mean Corpuscular Volume 89 FL (80-99) Mean Corpuscular Hemoglobin 30.4 PG (27.0-31.0) Mean Corpuscular Hemoglobin Concent 34.2 G/DL (32.0-36.0) Red Cell Distribution Width 15.0 % (11.6-14.8) H Platelet Count 368 K/UL (150-450) Mean Platelet Volume 4.5 FL (6.5-10.1) L Neutrophils (%) (Auto) 60.7 % (45.0-75.0) Lymphocytes (%) (Auto) 31.3 % (20.0-45.0) Monocytes (%) (Auto) 5.2 % (1.0-10.0) Eosinophils (%) (Auto) 1.9 % (0.0-3.0) Basophils (%) (Auto) 0.9 % (0.0-2.0) Sodium Level 143 MMOL/L (136-145) # Potassium Level 3.9 MMOL/L (3.5-5.1) Chloride Level 104 MMOL/L (98-107) Carbon Dioxide Level 26 MMOL/L (21-32) Anion Gap 13 mmol/L (5-15) Blood Urea Nitrogen 80 mg/dL (7-18) H Creatinine 2.7 MG/DL (0.55-1.30) H Estimat Glomerular Filtration Rate 17.0 mL/min (>60) Glucose Level 72 MG/DL (74-106) L Calcium Level 8.6 MG/DL (8.5-10.1) Total Bilirubin 0.5 MG/DL (0.2-1.0) Aspartate Amino Transf (AST/SGOT) 344 U/L (15-37) H Alanine Aminotransferase (ALT/SGPT) 344 U/L (12-78) H Alkaline Phosphatase 424 U/L (46-116) H Total Protein 6.9 G/DL (6.4-8.2) Albumin 2.1 G/DL (3.4-5.0) L Globulin 4.8 g/dL Albumin/Globulin Ratio 0.4 (1.0-2.7) L Thyroid Stimulating Hormone (TSH) 6.076 uiU/mL (0.358-3.740) Free Thyroxine 1.46 NG/DL (0.76-1.46) Assessment Post-op Diagnosis same Plan Problems: (1) Malnutrition Assessment & Plan: DAILY ESTIMATED NEEDS: Needs based on ESRD+ HD, underweight, wound/ 39.5kg 35-40 kcals/kg 9994-0400 total kcals 1.25-1.8 g protein/kg 49-71 g total protein 20-22 mL/kg 790-869 total fluid mLs NUTRITION DIAGNOSIS: * Increased kcal and protein needs r/t underweight status, HD needs, wuond healing as evidenced by pt is underweight per guidelines, ESRD, on HD, admitted non-blanching erythema wounds @ BL heels and sacrum * Swallowing difficulty R/T dysphagia as evidenced by TRIMMING INSPECTOR recommends temporary nonoral feeding at this time, s/p NGT insertion, on NGT feeding-> now s/p self removal, NPO. CURRENT TF:NPO PO DIET RECOMMENDATIONS: WHEN SAFE FOR ORAL DIET -> renal/ texture per TRIMMING INSPECTOR ENTERAL NUTRITION RECOMMENDATIONS: W/ GI access: Nepro @ 35ml/hr x 22 hrs to provide 770ml, 1386kcal, 62g prot, 560ml free water * W/ GI access, resume TF on Nepro * Initiate Nepro @ 15ml/hr x 6 hrs, advance 10ml q 4-6 hrs as tolerated to goal rate. * Hold 1 hour before and after Synthroid med * HOB over 30 degrees/ water flush per MD. ADDITIONAL RECOMMENDATIONS: 1) Calibrated bed scale wt for accurate CBW -> daily wt monitoring Per HD record: dry wt on 07/30=39.5kg (87lbs) 2) Wound care: (W/ GI access) add Nephorivte x 1 + Balta BID 3) Monitor NPO status: without GI access at this time, s/p pulling out NGT 4) Monitor for hypoglycemia while NPO 5) Monitor for continuity of HD (2) Septic arthritis Assessment & Plan: Pt presented on admission with generalized scaly rash . pt noted to be restless and scratching at skin. Bleeding from oral mucosa noted. Joint deformity noted to R shoulder. Surgical incision approximated with 11 sutures. Erythema but no exudate,or elevation in skin temp at site of incision. Historical incision R hip that is tunneled.Small amt seropurulent exudate noted. Periwound is erythematous,but no elevation in skin temp noted. No odor noted. Non-blanching erythema noted to sacrum. Perianal area is erythematous and excoriated. L heel is boggy with non-blanching erythema. R heel is soft with non-blanching erythema. No evidence of skin breakdown to all other bony prominences. Tx.plan: Cover R shoulder with Drsg and change daily and prn. Cleanse R hip wound with Saline. Apply Therahoney.Apply Cavilon Skin Barrier periwound. Cover with Optifoam drsg. Change every 3 days and prn. Apply Moisture Barrier Paste to perianal area and buttocks. Cover Sacrum with Optifoam drsg. Change every 3 days and prn. Apply Cavilon Skin Barrier to both heels. Cover each heel with Optifoam drsg. Change every 7 days and prn. APM/ELVIA Mattress overlay. Reposition at least every 2hours or as tolerated. Off-load heels with pillow. HD cath necessary HD as renal likely will need intubation 19 x 11 x 11 mm hypoechoic area in the liver adjacent to the gallbladder fossa. Although location is typical for area of focal sparing in a fatty liver, there are no findings to indicate fatty liver and this is a new finding since fairly recent previous exam. Therefore the possibility of a process such as small abscess should be considered. Atrophic echogenic kidneys Negative for gallstones or dilated bile ducts (3) Wound, open, hip or thigh with complication Assessment & Plan: slow healing will need nutritional optimization difficult ng tube peg when stable sutures removed from right shoulder comfortable wean vent may need trach (4) Abscess of right hip (5) possible septic arthritis (6) Renal failure (ARF), acute on chronic Assessment & Plan: cont HD will need tunneled cath placement okay to use fem line for now but will need change soon. line monitored and clean dressings going well (7) Pneumonia Assessment & Plan: intubated on vent support not tolerating weaning may need trach hemothorax likely after thoracentesis Chest CT noted Left chest tube placed With plan for trach chest tube can be considered but overall prognosis is very poor s/p trach left chest tub eout cxr noted and okay downgrade left pleural effusion dressings saturated will need to monitor. may need another chest tube as may not heal well on left side Anasarca, with as mentioned above diffuse edema of the soft tissues, trace ascites, and bilateral pleural effusions No hepatic abnormality to correlate with suspected small pericholecystic lesion in the liver described on recent sonogram. The lesion may be occult on noncontrast CT, may have been artifactual or may have resolved in the interim. Consider repeat sonography in a few days to assess progression No definite acute abdominal process otherwise Improved but still sizable left pleural effusion with minimal residual hemoperitoneum since prior CT scan of 09/01/2019. There is near complete atelectasis of the left lower lobe. There is a small right pleural effusion with atelectatic changes of the right lower lobe and right perihilar dense consolidation. These appear improved since a prior CT of 09/01/2019 Increased crazy paving type opacity within the right middle lobe since previous August [address], may reflect an area of increasing infiltrate, versus focal edema. There is also some dense consolidation of the perihilar right lower lobe which is improved since the previous August 31 CT Right groin temporary dialysis catheter in good position Atrophic kidneys, consistent with known history of chronic renal disease L2 compression fracture deformity, and advanced degenerative changes of the L2- L3 disc. Similar to prior study Marroquin catheter hold on repeat chest tube (8) Liver enzyme elevation Assessment & Plan: likely shock liver improving trend Camilo James Sep 28, 2019 09:44
--- NOTE | 2019-09-28 10:58 | Infectious Diseases Prog Note ---
Assessment/Plan Assessment/Plan antibiotics : none A 1. jarad albicans fungemia s/p rx 2. right shoulder septic arthritis with staph aureus s/p rx 3. pleural effusion 4. thrombocytopenia resolved 7. diabetes mellitus 8. hypertension 9. respiratory failure P 1. observe off antibiotics Subjective ROS Limited/Unobtainable: Yes Allergies: Coded Allergies: VANCOMYCIN (Unverified Allergy, Unknown, 08/02/19) Objective Vital Signs Last 24 Hour Vital Signs Date Time Temp Pulse Resp B/P (MAP) Pulse Ox O2 Delivery O2 Flow Rate FiO2 09/28/19 08:35 159 81/69 09/28/19 05:24 78 18 30 09/28/19 04:00 98.2 84 18 155/81 (105) 100 09/28/19 04:00 Mechanical Ventilator Mechanical Ventilator Mechanical Ventilator Mechanical Ventilator 09/28/19 04:00 30 09/28/19 03:34 80 09/28/19 03:30 80 18 98 Mechanical Ventilator 30 82 24 30 09/28/19 00:41 80 18 30 09/28/19 00:00 30 09/28/19 00:00 97.9 78 18 151/82 (105) 100 09/28/19 00:00 Mechanical Ventilator Mechanical Ventilator Mechanical Ventilator Mechanical Ventilator 09/27/19 23:30 77 18 96 Mechanical Ventilator 30 79 20 30 09/27/19 23:28 78 09/27/19 21:18 82 18 30 09/27/19 20:00 30 09/27/19 20:00 Mechanical Ventilator Mechanical Ventilator Mechanical Ventilator Mechanical Ventilator 09/27/19 20:00 97.2 79 24 119/67 (84) 92 09/27/19 19:34 79 09/27/19 19:30 83 18 94 Mechanical Ventilator 30 88 18 30 09/27/19 18:12 71 124/78 09/27/19 16:57 70 19 30 09/27/19 16:00 96.6 75 21 124/78 (93) 100 09/27/19 16:00 30 09/27/19 16:00 85 09/27/19 16:00 Mechanical Ventilator Mechanical Ventilator Mechanical Ventilator Mechanical Ventilator 09/27/19 14:58 71 18 100 Mechanical Ventilator 30 72 18 30 09/27/19 13:53 69 20 30 09/27/19 12:00 85 09/27/19 12:00 97.0 76 20 139/73 (95) 100 09/27/19 12:00 30 09/27/19 12:00 Mechanical Ventilator Mechanical Ventilator Mechanical Ventilator Mechanical Ventilator 09/27/19 11:31 74 19 100 Mechanical Ventilator 30 75 20 30 Height (Feet): 5 Height (Inches): 4.00 Weight (Pounds): 112 HEENT: status post trach Respiratory/Chest: lungs clear Cardiovascular: normal rate, regular rhythm, no gallop/murmur Abdomen: soft, non tender, other - GT Extremities: no edema, other - right groin catheter Laboratory Tests Test 09/28/19 03:17 White Blood Count 7.5 K/UL (4.8-10.8) Red Blood Count 2.69 M/UL (4.20-5.40) L Hemoglobin 8.2 G/DL (12.0-16.0) L Hematocrit 23.9 % (37.0-47.0) L Mean Corpuscular Volume 89 FL (80-99) Mean Corpuscular Hemoglobin 30.4 PG (27.0-31.0) Mean Corpuscular Hemoglobin Concent 34.2 G/DL (32.0-36.0) Red Cell Distribution Width 15.0 % (11.6-14.8) H Platelet Count 368 K/UL (150-450) Mean Platelet Volume 4.5 FL (6.5-10.1) L Neutrophils (%) (Auto) 60.7 % (45.0-75.0) Lymphocytes (%) (Auto) 31.3 % (20.0-45.0) Monocytes (%) (Auto) 5.2 % (1.0-10.0) Eosinophils (%) (Auto) 1.9 % (0.0-3.0) Basophils (%) (Auto) 0.9 % (0.0-2.0) Sodium Level 143 MMOL/L (136-145) # Potassium Level 3.9 MMOL/L (3.5-5.1) Chloride Level 104 MMOL/L (98-107) Carbon Dioxide Level 26 MMOL/L (21-32) Anion Gap 13 mmol/L (5-15) Blood Urea Nitrogen 80 mg/dL (7-18) H Creatinine 2.7 MG/DL (0.55-1.30) H Estimat Glomerular Filtration Rate 17.0 mL/min (>60) Glucose Level 72 MG/DL (74-106) L Calcium Level 8.6 MG/DL (8.5-10.1) Total Bilirubin 0.5 MG/DL (0.2-1.0) Aspartate Amino Transf (AST/SGOT) 344 U/L (15-37) H Alanine Aminotransferase (ALT/SGPT) 344 U/L (12-78) H Alkaline Phosphatase 424 U/L (46-116) H Total Protein 6.9 G/DL (6.4-8.2) Albumin 2.1 G/DL (3.4-5.0) L Globulin 4.8 g/dL Albumin/Globulin Ratio 0.4 (1.0-2.7) L Thyroid Stimulating Hormone (TSH) 6.076 uiU/mL (0.358-3.740) Free Thyroxine 1.46 NG/DL (0.76-1.46) Current Medications Medications (Trade) Dose Ordered Sig/Javier Route PRN Reason Start Time Stop Time Status Last Admin Dose Admin Acetylcysteine (Mucomyst) 100 mg Q4HRT [facility] 08/31/19 19:00 11/29/19 18:59 09/28/19 08:36 Albuterol/ Ipratropium (Albuterol/ Ipratropium) 3 ml Q4HRT N 09/22/19 15:00 12/09/19 14:59 09/28/19 08:35 Amlodipine Besylate (Norvasc) 5 mg BID ORAL 09/25/19 09:00 10/25/19 08:59 09/28/19 08:35 Chlorhexidine Gluconate (Nae-Hex 2%) 1 applic DAILY@1999 TOPIC 09/17/19 20:00 12/16/19 19:59 09/27/19 21:10 Clonidine HCl (Catapres Tab) 0.1 mg Q4H PRN ORAL For High Blood Pressure 09/22/19 21:00 12/21/19 20:59 09/26/19 23:01 Dextrose (Dextrose 50%) 25 ml Q30M PRN IV Hypoglycemia 09/02/19 06:15 12/01/19 06:14 09/04/19 12:11 Dextrose (Dextrose 50%) 50 ml Q30M PRN IV Hypoglycemia 09/02/19 06:15 12/01/19 06:14 Lansoprazole (Prevacid) 30 mg DAILY GT 09/27/19 09:00 10/27/19 08:59 09/28/19 08:34 Levothyroxine Sodium (Synthroid) 125 mcg DAILY@0630 ORAL 09/22/19 06:30 10/22/19 06:29 09/28/19 05:31 Psyllium Hydrophilic Mucilloid (Metamucil) 1 pkt DAILY ORAL 09/22/19 15:00 10/22/19 14:59 09/28/19 08:34 Sevelamer Carbonate (Renvela) 800 mg Q8HR NG 09/25/19 14:00 12/24/19 13:59 09/28/19 05:30 Melissa Solares MD Sep 28, 2019 10:58
--- NOTE | 2019-09-28 12:20 | Nephrology Progress Note ---
Assessment/Plan Problem List: (1) Liver enzyme elevation Assessment: Acute (2) ESRD (end stage renal disease) on dialysis (3) Malnutrition (4) Anemia in CKD (chronic kidney disease) (5) Hypotension (6) Thrombocytopenia (7) Sepsis Assessment: klebsiella in blood Assessment -Early sepsis with shock. -Healthcare-associated pneumonia. -Severe protein-calorie malnutrition. -Thrombocytopenia. - End-stage renal disease. - History of hypertension. - Bradycardia. - HypoThyroid Plan Labs reviewed Liver enzymes rising, hepatitis panel ordered today's labs indicates lowering of liver enzymes Tracheostomy September 07 Last dialysis September 20 done Next hemodialysis September 26 Chest tube on the left side was put in on September 01 was discontinued September 07 Patient transfused 3 units of packed RBCs for low hemoglobin Remains full code Blood pressure fluctuating, will start hydralazine via NG tube for blood pressure Magnesium and potassium supplement intravenously as needed Patient underwent PEG placement August 16 patient remains intubated on ventilator Discussed with RN Aim to wean from ventilator or consider tracheostomy Permacath was removed on August 12 Dialysis 08/11 Transfusion as needed Patient had hematemesis meds IV as possible Surveillance blood cultures tomorrow Plan to put the permacath back in on Thursday if cultures are negative keep BP and BS in check Inflammatory markers per orders Subjective ROS Limited/Unobtainable: Yes Objective Objective Last 24 Hour Vital Signs Date Time Temp Pulse Resp B/P (MAP) Pulse Ox O2 Delivery O2 Flow Rate FiO2 09/28/19 08:35 159 81/69 09/28/19 07:49 72 18 30 09/28/19 05:24 78 18 30 09/28/19 04:00 98.2 84 18 155/81 (105) 100 09/28/19 04:00 Mechanical Ventilator Mechanical Ventilator Mechanical Ventilator Mechanical Ventilator 09/28/19 04:00 30 09/28/19 03:34 80 09/28/19 03:30 80 18 98 Mechanical Ventilator 30 82 24 30 09/28/19 00:41 80 18 30 09/28/19 00:00 30 09/28/19 00:00 97.9 78 18 151/82 (105) 100 09/28/19 00:00 Mechanical Ventilator Mechanical Ventilator Mechanical Ventilator Mechanical Ventilator 09/27/19 23:30 77 18 96 Mechanical Ventilator 30 79 20 30 09/27/19 23:28 78 09/27/19 21:18 82 18 30 09/27/19 20:00 30 09/27/19 20:00 Mechanical Ventilator Mechanical Ventilator Mechanical Ventilator Mechanical Ventilator 09/27/19 20:00 97.2 79 24 119/67 (84) 92 09/27/19 19:34 79 09/27/19 19:30 83 18 94 Mechanical Ventilator 30 88 18 30 09/27/19 18:12 71 124/78 09/27/19 16:57 70 19 30 09/27/19 16:00 96.6 75 21 124/78 (93) 100 09/27/19 16:00 30 09/27/19 16:00 85 09/27/19 16:00 Mechanical Ventilator Mechanical Ventilator Mechanical Ventilator Mechanical Ventilator 09/27/19 14:58 71 18 100 Mechanical Ventilator 30 72 18 30 09/27/19 13:53 69 20 30 Intake and Output 09/27/19 09/28/19 19:00 07:00 Intake Total 510 ml 385 ml Output Total 1300 ml 300 ml Balance -790 ml 85 ml Intake Free Water 90 ml Tube Feeding 420 ml 385 ml Output Urine Total 300 ml 300 ml Hemodialysis UF 1000 ml # Bowel Movements 1 2 Laboratory Tests 09/28/19 03:17: White Blood Count 7.5, Red Blood Count 2.69L, Hemoglobin 8.2L, Hematocrit 23.9L , Mean Corpuscular Volume 89, Mean Corpuscular Hemoglobin 30.4, Mean Corpuscular Hemoglobin Concent 34.2, Red Cell Distribution Width 15.0H, Platelet Count 368, Mean Platelet Volume 4.5L, Neutrophils (%) (Auto) 60.7, Lymphocytes (%) (Auto) 31.3, Monocytes (%) (Auto) 5.2, Eosinophils (%) (Auto) 1.9, Basophils (%) (Auto) 0.9, Sodium Level 143#, Potassium Level 3.9, Chloride Level 104, Carbon Dioxide Level 26, Anion Gap 13, Blood Urea Nitrogen 80H, Creatinine 2.7H, Estimat Glomerular Filtration Rate 17.0, Glucose Level 72L, Calcium Level 8.6, Total Bilirubin 0.5, Aspartate Amino Transf (AST/SGOT) 344H, Alanine Aminotransferase (ALT/SGPT) 344H, Alkaline Phosphatase 424H, Total Protein 6.9, Albumin 2.1L, Globulin 4.8, Albumin/Globulin Ratio 0.4L, Thyroid Stimulating Hormone (TSH) 6.076H, Free Thyroxine 1.46 09/28/19 09:50: Stool Occult Blood [Pending] Height (Feet): 5 Height (Inches): 4.00 Weight (Pounds): 112 General Appearance: no apparent distress EENT: other - trach and vent Cardiovascular: other - variable Respiratory/Chest: decreased breath sounds Abdomen: other - PEG in place Objective no change William Blackwood MD Sep 28, 2019 12:20
--- NOTE | 2019-09-28 13:23 | General Progress Note ---
Assessment/Plan Problem List: (1) Failure to thrive (0-17) ICD Codes: R62.51 - Failure to thrive (0-17) SNOMED: 269177137 (2) Hypertensive kidney disease ICD Codes: I12.9 - Hypertensive chronic kidney disease with stage 1 through stage 4 chronic kidney disease, or unspecified chronic kidney disease SNOMED: 84163938 (3) Pneumonia ICD Codes: J18.9 - Pneumonia, unspecified organism SNOMED: 249824105 Qualifiers: Qualified Codes: J18.9 - Pneumonia, unspecified organism (4) ESRD (end stage renal disease) ICD Codes: N18.6 - End stage renal disease SNOMED: 67845003 (5) Septic arthritis ICD Codes: M00.9 - Pyogenic arthritis, unspecified SNOMED: 903542306 (6) Thrombocytopenia ICD Codes: D69.6 - Thrombocytopenia, unspecified SNOMED: 625992381 (7) Hypotension ICD Codes: I95.9 - Hypotension, unspecified SNOMED: 42538110 Qualifiers: Qualified Codes: I95.3 - Hypotension of hemodialysis (8) Malnutrition ICD Codes: E46 - Unspecified protein-calorie malnutrition SNOMED: 36698523 Status: stable, not improved, unchanged, deteriorating Assessment/Plan: Continue vent support. Wean as able. Will discuss with pulmonary if patient could be weaned to trach collar.Suctioning and pulmonary toilet. Continue G-tube feedings. Monitor residuals Continue current blood pressure regimen with close monitoring of blood pressure. Hemodialysis with ultrafiltration per nephrology. Turn every 2 hours and good skin care. monitor labs/lfts hep panel dc hydralazine(per GI can cause transaminitis) Discharge planning in progress Subjective ROS Limited/Unobtainable: No Constitutional: Reports: malaise, weakness HEENT: Reports: no symptoms Cardiovascular: Reports: no symptoms Respiratory: Reports: shortness of breath, sputum Gastrointestinal/Abdominal: Reports: difficulty swallowing Genitourinary: Reports: no symptoms Neurologic/Psychiatric: Reports: anxiety Endocrine: Reports: no symptoms Hematologic/Lymphatic: Reports: anemia Allergies: Coded Allergies: VANCOMYCIN (Unverified Allergy, Unknown, 08/02/19) All Systems: reviewed and negative except above Subjective There were no overnight events. Patient remained stable on the ventilator. She occasionally opens her eyes. Tolerating feedings. LFTS trending down. Objective Last 24 Hour Vital Signs Date Time Temp Pulse Resp B/P (MAP) Pulse Ox O2 Delivery O2 Flow Rate FiO2 09/28/19 11:33 73 09/28/19 08:35 159 81/69 09/28/19 07:49 72 18 30 09/28/19 05:24 78 18 30 09/28/19 04:00 98.2 84 18 155/81 (105) 100 09/28/19 04:00 Mechanical Ventilator Mechanical Ventilator Mechanical Ventilator Mechanical Ventilator 09/28/19 04:00 30 09/28/19 03:34 80 09/28/19 03:30 80 18 98 Mechanical Ventilator 30 82 24 30 09/28/19 00:41 80 18 30 09/28/19 00:00 30 09/28/19 00:00 97.9 78 18 151/82 (105) 100 09/28/19 00:00 Mechanical Ventilator Mechanical Ventilator Mechanical Ventilator Mechanical Ventilator 09/27/19 23:30 77 18 96 Mechanical Ventilator 30 79 20 30 09/27/19 23:28 78 09/27/19 21:18 82 18 30 09/27/19 20:00 30 09/27/19 20:00 Mechanical Ventilator Mechanical Ventilator Mechanical Ventilator Mechanical Ventilator 09/27/19 20:00 97.2 79 24 119/67 (84) 92 09/27/19 19:34 79 09/27/19 19:30 83 18 94 Mechanical Ventilator 30 88 18 30 09/27/19 18:12 71 124/78 09/27/19 16:57 70 19 30 09/27/19 16:00 96.6 75 21 124/78 (93) 100 09/27/19 16:00 30 09/27/19 16:00 85 09/27/19 16:00 Mechanical Ventilator Mechanical Ventilator Mechanical Ventilator Mechanical Ventilator 09/27/19 14:58 71 18 100 Mechanical Ventilator 30 72 18 30 09/27/19 13:53 69 20 30 Intake and Output 09/27/19 09/28/19 19:00 07:00 Intake Total 510 ml 385 ml Output Total 1300 ml 300 ml Balance -790 ml 85 ml Intake Free Water 90 ml Tube Feeding 420 ml 385 ml Output Urine Total 300 ml 300 ml Hemodialysis UF 1000 ml # Bowel Movements 1 2 Laboratory Tests 09/28/19 03:17: White Blood Count 7.5, Red Blood Count 2.69L, Hemoglobin 8.2L, Hematocrit 23.9L , Mean Corpuscular Volume 89, Mean Corpuscular Hemoglobin 30.4, Mean Corpuscular Hemoglobin Concent 34.2, Red Cell Distribution Width 15.0H, Platelet Count 368, Mean Platelet Volume 4.5L, Neutrophils (%) (Auto) 60.7, Lymphocytes (%) (Auto) 31.3, Monocytes (%) (Auto) 5.2, Eosinophils (%) (Auto) 1.9, Basophils (%) (Auto) 0.9, Sodium Level 143#, Potassium Level 3.9, Chloride Level 104, Carbon Dioxide Level 26, Anion Gap 13, Blood Urea Nitrogen 80H, Creatinine 2.7H, Estimat Glomerular Filtration Rate 17.0, Glucose Level 72L, Calcium Level 8.6, Total Bilirubin 0.5, Aspartate Amino Transf (AST/SGOT) 344H, Alanine Aminotransferase (ALT/SGPT) 344H, Alkaline Phosphatase 424H, Total Protein 6.9, Albumin 2.1L, Globulin 4.8, Albumin/Globulin Ratio 0.4L, Thyroid Stimulating Hormone (TSH) 6.076H, Free Thyroxine 1.46 09/28/19 09:50: Stool Occult Blood Positive Height (Feet): 5 Height (Inches): 4.00 Weight (Pounds): 112 Objective General Appearance: WD/WN, awake. looks around. no distress. thin and frail Neck: supple +trach Cardiovascular: normal rate Respiratory/Chest: rhonchi - bilaterally Abdomen: normal bowel sounds, non tender, soft, no organomegaly Edema: no edema noted Arm (L), no edema noted Arm (R), no edema noted Leg (L), no edema noted Leg (R), no edema noted Pedal (L), no edema noted Pedal (R), no edema noted Generalized Neurologic: disoriented, aphasia Skin: +excoriations Nate Beltran MD Sep 28, 2019 13:23
--- NOTE | 2019-09-28 13:27 | Hematology/Onc Progress Note ---
Assessment/Plan Assessment/Plan # Thrombocytopenia ow THROMBOCYTOSIS - potential causes multifactorial, evaluate liver and viral etiologies to begin, in this case due to sepsis with septic shock also with cirrhosis and liver disease --> Hep panel and HIV ordered --> neg --> US abd to evaluate for cirrhosis and hsm ordered --> reviewed --> Peripheral smear ordered to evaluate for blasts /schistocytes --> none noted --> abx and other meds have been reviewed --> ok for ppx if plt >50k w/ either heparin or lovenox --> Transfuse if Plt < 20k and fever, or if Plt < 10k without fever --> okay for permacath change once plt better--> for 08/14 --> plt trend: 43-->83-->237k-->292-->341-->315-->388 -->444-->530-->252k-->344- >529->525k # Anemia of chronic disease due to underlying chronic medical issues, multifactorial v Gi bleed --> Anemia workup has been ordered, rule out gi bleed --> No evidence of hemolysis is noted, peripheral smear has been reviewed. --> Hgb goal >7. Transfuse prn. --> Epogen has been started --> HOLD OFF IRON ferritin is >1000 --> Medications have been reviewed --> low threshold for gi evaluation in case has occult + --> hgb 9-->6.7-->9.2 -->10.5-->10.6 -->10.7-->10-->10.5-->9.8-->10.4-->9.5--> 3.6-->9.6-->9.7-->10-->10.3-->11->9.9->8.3->8.7 --> blood tx: 08/11, 08/31 --> CT Chest r/o hemothorax --> does show confirmation of a large left hemothorax. Complete atelectasis of the left lower lobe and partial left upper lobe atelectasis demonstrated. Mild rightward shift of the heart and mediastinum. # Sepsis with shock. --> abx as per id, recs noted--> off abx --> pressors as needed # Healthcare-associated pneumonia. --> recs reviewed --> abx: jung/micafungin-->jung-->off --> 08/24 chest: moderate left pleural effusion # Severe protein-calorie malnutrition. --> nutritional support # End-stage renal disease --> had as renal hd --> with permacath # History of hypertension. --> per cards, now with Bradycardia. # Resp failure s/p vent/trach # HypoThyroid # Ngt feedings # Dvt ppx scd's The timing of this note does not necessarily reflect the time of the patient was seen. Greatly appreciate consultation. Subjective Constitutional: Denies: no symptoms, chills, fever, malaise, weakness, other HEENT: Denies: no symptoms, eye pain, blurred vision, tearing, double vision, ear pain, ear discharge, nose pain, nose congestion, throat pain, throat swelling, mouth pain, mouth swelling, other Cardiovascular: Denies: no symptoms, chest pain, edema, irregular heart rate, lightheadedness, palpitations, syncope, other Genitourinary: Denies: no symptoms, burning, discharge, frequency, flank pain, hematuria, incontinence, pain, urgency, other Neurologic/Psychiatric: Denies: no symptoms, anxiety, depressed, emotional problems, headache, numbness, paresthesia, pre-existing deficit, seizure, tingling, tremors, weakness, other Endocrine: Denies: no symptoms, excessive sweating, flushing, intolerance to cold, intolerance to heat, increased hunger, increased thirst, increased urine, unexplained weight gain, unexplained weight loss, other Hematologic/Lymphatic: Denies: no symptoms, anemia, easy bleeding, easy bruising, adenopathy, other Allergies: Coded Allergies: VANCOMYCIN (Unverified Allergy, Unknown, 08/02/19) Subjective 08/11: no bleeding or chills, labs reviewed, no major bleeding, plt less than 50k 08/12: icu, s/p blood, hgb improved to 9.2, 08/14: icu, pending consent for thora and permacath, labs reviewed 08/15: new permacath placed, no bleeding, for hd, plt much improved, started lovenox sq 08/16: ett to be adjusted, bp on high end, micafungin started, possible bronch 08/17: weaning as per pulm, no events otherwise, labs noted 08/18: no events no bleeding, remains confused on vent, for hd 08/20: icu, failed to wean, labs reviewed, jung 08/21: resting in bed, no overnight events, labs reviewed 08/22: awake, confused, restraints, no overnight events 08/23: no events, no bleeding, on ppi bid 08/24: icu, failed to wean, labs reviewed 08/25: no overnight events, us chest, restraints, afebrile 08/26 difficult in weaning, nad, seen by surg, pulm labs noted 08/27 awake on restraints, thoracentesis for am, labs reviewed 08/29 no bleeding, no night sweats, no major changes, on ppi bid 08/30 no major events, remains on vent, no bleeding, dw pcp 08/31 hgb dropped to 3.6, has been transfused with prbc, in icu, david Rn, ct chest pend 09/01 no major events, no bleeding, labs noted, hgb remains low, hgb 9.6 09/03 lethargic, left chest tube dry/intact, off abx, vent 09/04 remains on a vent, synthroid, labs reviewed 09/05 awake and alert, no acute events, hgb 9.8, no new orders 09/06 no bleeding or chills, labs noted, no major events overnight, david rn 09/07 no events, no night sweats, no bleeding, no fc, remains agitated in the am 09/08 remains in the icu, trach was done, on vent, abx off, on epo 09/10 transferred to sdu, restraints, vent, labs reviewed 09/11 tube feeds have been ongoing, no f/c, labs reviewed 09/12 no events, no bleeding, no night sweats, hgb 10 09/13 tsh is improved, remains confused, hgb is 11, no bleeding 09/14 no events, no bleeding, labs noted, vitals stable 09/15 confused, no acute events, restraints, dc planning 09/17 no new changes, no recent labs, placement pending 09/18 no events, no bleeding, no night sweats, fevers 09/19 nonverbal, vent, elevated bp, off abx 09/20 labs reviewed, david rn, no bleeding, meds reviewed 09/21 is a+o x 1, nonverbal, no bleeding, labs reviewed, no night sweats 09/22 no major events, no bleeding, no night sweats, no f/c, labs noted hgb 10.5 09/25 no events, no bleeding, labs noted, cbc reviewed 09/26 no events, with gtube feeds ongoing and with event, labs noted 09/27 labs have been reviewed, no night sweats, no fc Objective Objective Current Medications Medications (Trade) Dose Ordered Sig/Javier Route PRN Reason Start Time Stop Time Status Last Admin Dose Admin Acetylcysteine (Mucomyst) 100 mg Q4HRT [facility] 08/31/19 19:00 11/29/19 18:59 09/28/19 08:36 Albuterol/ Ipratropium (Albuterol/ Ipratropium) 3 ml Q4HRT N 09/22/19 15:00 12/09/19 14:59 09/28/19 08:35 Amlodipine Besylate (Norvasc) 5 mg BID ORAL 09/25/19 09:00 10/25/19 08:59 09/28/19 08:35 Chlorhexidine Gluconate (Nae-Hex 2%) 1 applic DAILY@1999 TOPIC 09/17/19 20:00 12/16/19 19:59 09/27/19 21:10 Clonidine HCl (Catapres Tab) 0.1 mg Q4H PRN ORAL For High Blood Pressure 09/22/19 21:00 12/21/19 20:59 09/26/19 23:01 Dextrose (Dextrose 50%) 25 ml Q30M PRN IV Hypoglycemia 09/02/19 06:15 12/01/19 06:14 09/04/19 12:11 Dextrose (Dextrose 50%) 50 ml Q30M PRN IV Hypoglycemia 09/02/19 06:15 12/01/19 06:14 Lansoprazole (Prevacid) 30 mg DAILY GT 09/27/19 09:00 10/27/19 08:59 09/28/19 08:34 Levothyroxine Sodium (Synthroid) 125 mcg DAILY@0630 ORAL 09/22/19 06:30 5/9/20 06:29 09/28/19 05:31 Psyllium Hydrophilic Mucilloid (Metamucil) 1 pkt DAILY ORAL 09/22/19 15:00 10/22/19 14:59 09/28/19 08:34 Sevelamer Carbonate (Renvela) 800 mg Q8HR NG 09/25/19 14:00 12/24/19 13:59 09/28/19 05:30 Last 24 Hour Vital Signs Date Time Temp Pulse Resp B/P (MAP) Pulse Ox O2 Delivery O2 Flow Rate FiO2 09/28/19 11:33 73 09/28/19 08:35 159 81/69 09/28/19 07:49 72 18 30 09/28/19 05:24 78 18 30 09/28/19 04:00 98.2 84 18 155/81 (105) 100 09/28/19 04:00 Mechanical Ventilator Mechanical Ventilator Mechanical Ventilator Mechanical Ventilator 09/28/19 04:00 30 09/28/19 03:34 80 09/28/19 03:30 80 18 98 Mechanical Ventilator 30 82 24 30 09/28/19 00:41 80 18 30 09/28/19 00:00 30 09/28/19 00:00 97.9 78 18 151/82 (105) 100 09/28/19 00:00 Mechanical Ventilator Mechanical Ventilator Mechanical Ventilator Mechanical Ventilator 09/27/19 23:30 77 18 96 Mechanical Ventilator 30 79 20 30 09/27/19 23:28 78 09/27/19 21:18 82 18 30 09/27/19 20:00 30 09/27/19 20:00 Mechanical Ventilator Mechanical Ventilator Mechanical Ventilator Mechanical Ventilator 09/27/19 20:00 97.2 79 24 119/67 (84) 92 09/27/19 19:34 79 09/27/19 19:30 83 18 94 Mechanical Ventilator 30 88 18 30 09/27/19 18:12 71 124/78 09/27/19 16:57 70 19 30 09/27/19 16:00 96.6 75 21 124/78 (93) 100 09/27/19 16:00 30 09/27/19 16:00 85 09/27/19 16:00 Mechanical Ventilator Mechanical Ventilator Mechanical Ventilator Mechanical Ventilator 09/27/19 14:58 71 18 100 Mechanical Ventilator 30 72 18 30 09/27/19 13:53 69 20 30 09/27/19 12:00 85 09/27/19 12:00 97.0 76 20 139/73 (95) 100 09/27/19 12:00 30 09/27/19 12:00 Mechanical Ventilator Mechanical Ventilator Mechanical Ventilator Mechanical Ventilator 09/27/19 11:31 74 19 100 Mechanical Ventilator 30 75 20 30 09/27/19 08:59 68 21 30 09/27/19 08:03 70 19 100 Mechanical Ventilator 30 71 20 30 09/27/19 08:00 96.4 71 23 143/69 (93) 100 09/27/19 08:00 Mechanical Ventilator Mechanical Ventilator Mechanical Ventilator Mechanical Ventilator 09/27/19 08:00 72 09/27/19 08:00 30 09/27/19 04:00 Mechanical Ventilator Mechanical Ventilator Mechanical Ventilator Mechanical Ventilator 09/27/19 04:00 97.4 76 19 135/64 (87) 100 09/27/19 04:00 30 09/27/19 04:00 76 09/27/19 03:29 68 18 100 Mechanical Ventilator 30 71 18 30 09/27/19 00:37 76 18 100 Mechanical Ventilator 30 74 18 30 09/27/19 00:00 97.2 80 18 148/74 (98) 100 09/27/19 00:00 Mechanical Ventilator Mechanical Ventilator Mechanical Ventilator Mechanical Ventilator 09/27/19 00:00 30 09/27/19 00:00 68 09/26/19 23:01 174/84 09/26/19 20:00 30 09/26/19 20:00 Mechanical Ventilator Mechanical Ventilator Mechanical Ventilator Mechanical Ventilator 09/26/19 20:00 97.0 80 18 174/84 (114) 100 09/26/19 20:00 80 09/26/19 19:40 73 18 100 Mechanical Ventilator 30 77 19 30 09/26/19 17:38 86 132/76 09/26/19 16:00 30 09/26/19 16:00 Mechanical Ventilator Mechanical Ventilator Mechanical Ventilator Mechanical Ventilator 09/26/19 16:00 96.8 84 18 136/70 (92) 99 09/26/19 15:20 81 18 100 Mechanical Ventilator 30 84 18 30 09/26/19 15:09 73 Intake and Output 09/27/19 09/28/19 19:00 07:00 Intake Total 510 ml 385 ml Output Total 1300 ml 300 ml Balance -790 ml 85 ml Intake Free Water 90 ml Tube Feeding 420 ml 385 ml Output Urine Total 300 ml 300 ml Hemodialysis UF 1000 ml # Bowel Movements 1 2 Labs Test 09/26/19 04:55 09/27/19 03:41 09/28/19 03:17 09/28/19 09:50 White Blood Count 10.3 K/UL (4.8-10.8) 9.4 K/UL (4.8-10.8) 7.5 K/UL (4.8-10.8) Red Blood Count 2.74 M/UL (4.20-5.40) 2.86 M/UL (4.20-5.40) 2.69 M/UL (4.20-5.40) Hemoglobin 8.3 G/DL (12.0-16.0) 8.7 G/DL (12.0-16.0) 8.2 G/DL (12.0-16.0) Hematocrit 24.1 % (37.0-47.0) 25.6 % (37.0-47.0) 23.9 % (37.0-47.0) Mean Corpuscular Volume 88 FL (80-99) 89 FL (80-99) 89 FL (80-99) Mean Corpuscular Hemoglobin 30.1 PG (27.0-31.0) 30.4 PG (27.0-31.0) 30.4 PG (27.0-31.0) Mean Corpuscular Hemoglobin Concent 34.3 G/DL (32.0-36.0) 34.1 G/DL (32.0-36.0) 34.2 G/DL (32.0-36.0) Red Cell Distribution Width 14.9 % (11.6-14.8) 14.8 % (11.6-14.8) 15.0 % (11.6-14.8) Platelet Count 427 K/UL (150-450) 407 K/UL (150-450) 368 K/UL (150-450) Mean Platelet Volume 5.0 FL (6.5-10.1) 4.8 FL (6.5-10.1) 4.5 FL (6.5-10.1) Neutrophils (%) (Auto) 74.0 % (45.0-75.0) 69.2 % (45.0-75.0) 60.7 % (45.0-75.0) Lymphocytes (%) (Auto) 20.3 % (20.0-45.0) 24.6 % (20.0-45.0) 31.3 % (20.0-45.0) Monocytes (%) (Auto) 3.6 % (1.0-10.0) 3.3 % (1.0-10.0) 5.2 % (1.0-10.0) Eosinophils (%) (Auto) 1.4 % (0.0-3.0) 2.3 % (0.0-3.0) 1.9 % (0.0-3.0) Basophils (%) (Auto) 0.8 % (0.0-2.0) 0.7 % (0.0-2.0) 0.9 % (0.0-2.0) Sodium Level 135 MMOL/L (136-145) 132 MMOL/L (136-145) 143 MMOL/L (136-145) Potassium Level 4.7 MMOL/L (3.5-5.1) 4.7 MMOL/L (3.5-5.1) 3.9 MMOL/L (3.5-5.1) Chloride Level 98 MMOL/L (98-107) 95 MMOL/L (98-107) 104 MMOL/L (98-107) Carbon Dioxide Level 20 MMOL/L (21-32) 25 MMOL/L (21-32) 26 MMOL/L (21-32) Blood Urea Nitrogen 130 mg/dL (7-18) 135 mg/dL (7-18) 80 mg/dL (7-18) Creatinine 3.7 MG/DL (0.55-1.30) 4.0 MG/DL (0.55-1.30) 2.7 MG/DL (0.55-1.30) Estimat Glomerular Filtration Rate 11.8 mL/min (>60) 10.8 mL/min (>60) 17.0 mL/min (>60) Glucose Level 116 MG/DL (74-106) 113 MG/DL (74-106) 72 MG/DL (74-106) Calcium Level 8.1 MG/DL (8.5-10.1) 8.7 MG/DL (8.5-10.1) 8.6 MG/DL (8.5-10.1) Phosphorus Level 6.3 MG/DL (2.5-4.9) Magnesium Level 2.5 MG/DL (1.8-2.4) Total Bilirubin 0.5 MG/DL (0.2-1.0) 0.4 MG/DL (0.2-1.0) 0.5 MG/DL (0.2-1.0) Gamma Glutamyl Transpeptidase 130 U/L (5-85) Aspartate Amino Transf (AST/SGOT) 674 U/L (15-37) 415 U/L (15-37) 344 U/L (15-37) Alanine Aminotransferase (ALT/SGPT) 541 U/L (12-78) 389 U/L (12-78) 344 U/L (12-78) Alkaline Phosphatase 497 U/L (46-116) 489 U/L (46-116) 424 U/L (46-116) Ammonia 41 umol/L (11-32) Total Protein 6.7 G/DL (6.4-8.2) 7.5 G/DL (6.4-8.2) 6.9 G/DL (6.4-8.2) Albumin 2.2 G/DL (3.4-5.0) 2.4 G/DL (3.4-5.0) 2.1 G/DL (3.4-5.0) Globulin 4.5 g/dL 5.1 g/dL 4.8 g/dL Albumin/Globulin Ratio 0.5 (1.0-2.7) 0.4 (1.0-2.7) Anion Gap 12 mmol/L (5-15) 13 mmol/L (5-15) Thyroid Stimulating Hormone (TSH) 6.076 uiU/mL (0.358-3.740) Free Thyroxine 1.46 NG/DL (0.76-1.46) Stool Occult Blood Positive (NEGATIVE) Height (Feet): 5 Height (Inches): 4.00 Weight (Pounds): 112 Objective Physical Exam vitals: reviewed gen: nad pulm: on trach+ / vent, decreased breath sounds left, chest tube+ cv: rrr, no gmr abd: sfot, nt, nd ++ gt ext: no cce Gio Rob MD Sep 28, 2019 13:27
[2019-09-28 13:30] VITALS: BP 166/105
[2019-09-28 16:00] VITALS: BP 178/88
--- NOTE | 2019-09-28 16:50 | Critical Care Progress Note ---
Assessment/Plan Assessment/Plan respiratory failure hypoxemia chronic renal failure toxic met encephalopathy severe protein calorie malnutrition cachexia left lung whiteout/collapse, anemia pulmonary edema + pleural effusion s/p CT placement and removal s/p trach hypernatremia PLAN trach care as is repeat imaging for change care noted and reviewed monitor for fluid retention reviewed care and continue to monitor weaning not successful renal follow up and dialysis prognosis poor overall for change keep negative and monitor osmotic pressures fully dependent for now close follow up discussed elevated head and monitor ROM watch fluid status and keep negative nutrition and monitor residuals doubt any significant improvement off load as able and monitor skin exam ROM as able and monitor contractures prognosis poor for recovery will need LTAC impression, plan, and exam edited and reviewed in detail care discussed with regional sales director - Subjective Interval Events: care noted on vent poor LOC ROS Limited/Unobtainable: Yes Condition: critical, unchanged EKG Rhythm: Sinus Rhythm Residuals: minimal Tube Feeding Tolerated: yes I&O: Intake and Output 09/27/19 09/28/19 19:00 07:00 Intake Total 510 ml 385 ml Output Total 1300 ml 300 ml Balance -790 ml 85 ml Intake Free Water 90 ml Tube Feeding 420 ml 385 ml Output Urine Total 300 ml 300 ml Hemodialysis UF 1000 ml # Bowel Movements 1 2 Critical Care - Objective ET-Tube: 7.0 ET Position: 19 Last 24 Hour Vital Signs Date Time Temp Pulse Resp B/P (MAP) Pulse Ox O2 Delivery O2 Flow Rate FiO2 09/28/19 15:10 61 18 100 Mechanical Ventilator 30 62 18 30 09/28/19 13:31 166/105 09/28/19 13:30 98.0 73 20 166/105 (125) 100 09/28/19 12:00 30 09/28/19 11:33 73 09/28/19 11:01 58 18 30 09/28/19 08:35 159 81/69 09/28/19 08:15 97.9 81 20 154/84 (107) 99 09/28/19 08:10 Mechanical Ventilator Mechanical Ventilator Mechanical Ventilator Mechanical Ventilator 09/28/19 08:00 30 09/28/19 07:49 72 18 100 Mechanical Ventilator 30 69 18 30 09/28/19 07:47 70 09/28/19 05:24 78 18 30 09/28/19 04:00 98.2 84 18 155/81 (105) 100 09/28/19 04:00 Mechanical Ventilator Mechanical Ventilator Mechanical Ventilator Mechanical Ventilator 09/28/19 04:00 30 09/28/19 03:34 80 09/28/19 03:30 80 18 98 Mechanical Ventilator 30 82 24 30 09/28/19 00:41 80 18 30 09/28/19 00:00 30 09/28/19 00:00 97.9 78 18 151/82 (105) 100 09/28/19 00:00 Mechanical Ventilator Mechanical Ventilator Mechanical Ventilator Mechanical Ventilator 09/27/19 23:30 77 18 96 Mechanical Ventilator 30 79 20 30 09/27/19 23:28 78 09/27/19 21:18 82 18 30 09/27/19 20:00 30 09/27/19 20:00 Mechanical Ventilator Mechanical Ventilator Mechanical Ventilator Mechanical Ventilator 09/27/19 20:00 97.2 79 24 119/67 (84) 92 09/27/19 19:34 79 09/27/19 19:30 83 18 94 Mechanical Ventilator 30 88 18 30 09/27/19 18:12 71 124/78 09/27/19 16:57 70 19 30 Labs: Laboratory Tests Test 09/28/19 03:17 09/28/19 09:50 White Blood Count 7.5 K/UL (4.8-10.8) Red Blood Count 2.69 M/UL (4.20-5.40) L Hemoglobin 8.2 G/DL (12.0-16.0) L Hematocrit 23.9 % (37.0-47.0) L Mean Corpuscular Volume 89 FL (80-99) Mean Corpuscular Hemoglobin 30.4 PG (27.0-31.0) Mean Corpuscular Hemoglobin Concent 34.2 G/DL (32.0-36.0) Red Cell Distribution Width 15.0 % (11.6-14.8) H Platelet Count 368 K/UL (150-450) Mean Platelet Volume 4.5 FL (6.5-10.1) L Neutrophils (%) (Auto) 60.7 % (45.0-75.0) Lymphocytes (%) (Auto) 31.3 % (20.0-45.0) Monocytes (%) (Auto) 5.2 % (1.0-10.0) Eosinophils (%) (Auto) 1.9 % (0.0-3.0) Basophils (%) (Auto) 0.9 % (0.0-2.0) Sodium Level 143 MMOL/L (136-145) # Potassium Level 3.9 MMOL/L (3.5-5.1) Chloride Level 104 MMOL/L (98-107) Carbon Dioxide Level 26 MMOL/L (21-32) Anion Gap 13 mmol/L (5-15) Blood Urea Nitrogen 80 mg/dL (7-18) H Creatinine 2.7 MG/DL (0.55-1.30) H Estimat Glomerular Filtration Rate 17.0 mL/min (>60) Glucose Level 72 MG/DL (74-106) L Calcium Level 8.6 MG/DL (8.5-10.1) Total Bilirubin 0.5 MG/DL (0.2-1.0) Aspartate Amino Transf (AST/SGOT) 344 U/L (15-37) H Alanine Aminotransferase (ALT/SGPT) 344 U/L (12-78) H Alkaline Phosphatase 424 U/L (46-116) H Total Protein 6.9 G/DL (6.4-8.2) Albumin 2.1 G/DL (3.4-5.0) L Globulin 4.8 g/dL Albumin/Globulin Ratio 0.4 (1.0-2.7) L Thyroid Stimulating Hormone (TSH) 6.076 uiU/mL (0.358-3.740) Free Thyroxine 1.46 NG/DL (0.76-1.46) Stool Occult Blood Positive (NEGATIVE) Objective: WDWN NAD trach in place reduced breath sounds without rhonchi or wheeze [id number] without MRG NABS nontender no HSM no CCE contractures feeding tube in place no distention reduced LOC and weak nonfocal cachectic reviewed and edited Accucheck: 89 Malcolm Cruz MD Sep 28, 2019 16:50
[2019-09-28 20:00] VITALS: BP 148/75
[2019-09-28] MEDS: Dyna-Hex 2% Top Sol 2oz TOPIC SCH (20:00)
[2019-09-29] VITALS: BP 148/75
[2019-09-29] MEDS: Albuterol/Ipratropium 3ml neb HHN SCH ×6 (03:43→22:58)
[2019-09-29 04:00] VITALS: BP 154/76
[2019-09-29 05:57] LABS: HEMATOCRIT 22.6 % (37.0-47.0); HEMOGLOBIN 7.8 G/DL (12.0-16.0); MEAN CORPUSCULAR VOLUME 88 FL (80-99); PLATELET COUNT 338 K/UL (150-450); RED BLOOD COUNT 2.57 M/UL (4.20-5.40); WHITE BLOOD COUNT 10.1 K/UL (4.8-10.8)
[2019-09-29] MEDS: Levothyroxine 125mcg tab ORAL SCH (06:07)
[2019-09-29] MEDS: Renvela 800mg Pkt NG SCH ×3 (06:07→22:05)
[2019-09-29 06:24] LABS: ALANINE AMINOTRANSFERASE 246 U/L (12-78); ALBUMIN/GLOBULIN RATIO 0.4 (1.0-2.7); ALKALINE PHOSPHATASE 400 U/L (46-116); ANION GAP 12 mmol/L (5-15); ASPARTATE AMINO TRANSFERASE 255 U/L (15-37); BILIRUBIN,TOTAL 0.5 MG/DL (0.2-1.0); BLOOD UREA NITROGEN 102 mg/dL (7-18); CALCIUM 8.5 MG/DL (8.5-10.1); CARBON DIOXIDE 26 MMOL/L (21-32); CHLORIDE 101 MMOL/L (98-107); CREATININE 3.1 MG/DL (0.55-1.30); POTASSIUM 3.6 MMOL/L (3.5-5.1); SODIUM 138 MMOL/L (136-145)
[2019-09-29 08:00] VITALS: BP 152/91
[2019-09-29 08:07] LABS: PHOSPHORUS 4.3 MG/DL (2.5-4.9)
--- NOTE | 2019-09-29 08:45 | Progress Note ---
DATE: 09/28/2019 CARDIOLOGY PROGRESS NOTE SUBJECTIVE: The patient remains on ventilator support via trach. The patient has slowly decreasing liver function tests. She has been off hydralazine for four days. PHYSICAL EXAMINATION: LUNGS: Bilateral breath sounds. HEART: Regular rhythm rate. Normal S1, S2. ABDOMEN: Soft. EXTREMITIES: Trace edema. IMPRESSION: 1. Respiratory failure, status post trach. 2. Acute on chronic diastolic congestive heart failure. 3. Hypothyroidism. 4. Transaminitis. 5. Hypertensive heart disease. 6. . 7. End-stage renal disease . PLAN: Consider holding feedings one hour pre and post thyroid dose, avoid resumption of hydralazine. Monitor liver function studies. Weaning efforts. Titrate antihypertensive regimen. Hemodialysis with ultrafiltration for volume management. Abel Stubbs M.D. DR: Lety JOB#: [id number] CC:
[2019-09-29] MEDS: Metamucil Pkt ORAL SCH (09:16)
--- NOTE | 2019-09-29 09:26 | Critical Care Progress Note ---
Assessment/Plan Assessment/Plan respiratory failure hypoxemia chronic renal failure toxic met encephalopathy severe protein calorie malnutrition cachexia left lung whiteout/collapse, anemia pulmonary edema + pleural effusion s/p CT placement and removal s/p trach hypernatremia PLAN trach care as is await repeat imaging care noted and reviewed monitor for fluid retention reviewed care and continue to monitor weaning care renal follow up and dialysis prognosis poor overall for change keep negative and monitor osmotic pressures fully dependent for now close follow up discussed elevated head and monitor ROM watch fluid status and keep negative nutrition and monitor residuals doubt any significant improvement off load as able and monitor skin exam ROM as able and monitor contractures prognosis poor for recovery will need LTAC impression, plan, and exam edited and reviewed in detail care discussed with chief nuclear medicine technologist - Subjective Interval Events: care noted and reviewed poor LOC on vent ROS Limited/Unobtainable: Yes Condition: unchanged EKG Rhythm: Sinus Rhythm Residuals: minimal Tube Feeding Tolerated: yes I&O: Intake and Output 09/28/19 09/29/19 19:00 07:00 Intake Total 520 ml 420 ml Output Total 250 ml 200 ml Balance 270 ml 220 ml Intake Free Water 100 ml Tube Feeding 420 ml 420 ml Output Urine Total 250 ml 200 ml # Bowel Movements 4 4 Critical Care - Objective ET-Tube: 7.0 ET Position: 19 Last 24 Hour Vital Signs Date Time Temp Pulse Resp B/P (MAP) Pulse Ox O2 Delivery O2 Flow Rate FiO2 09/29/19 09:18 73 18 30 09/29/19 09:16 68 152/91 09/29/19 08:00 30 09/29/19 08:00 98.1 68 18 152/91 (111) 96 09/29/19 07:45 53 25 95 Mechanical Ventilator 30 66 20 30 09/29/19 07:44 78 09/29/19 04:42 62 18 30 09/29/19 04:00 30 09/29/19 04:00 Mechanical Ventilator Mechanical Ventilator Mechanical Ventilator Mechanical Ventilator 09/29/19 04:00 97.2 69 18 154/76 (102) 100 09/29/19 04:00 69 09/29/19 03:44 64 18 100 Mechanical Ventilator 30 63 18 30 09/29/19 00:00 Mechanical Ventilator Mechanical Ventilator Mechanical Ventilator Mechanical Ventilator 09/29/19 00:00 61 09/29/19 00:00 97.5 61 18 148/75 (99) 100 09/28/19 23:15 65 18 100 Mechanical Ventilator 30 65 18 30 09/28/19 20:00 61 18 148/75 (99) 100 09/28/19 20:00 60 09/28/19 20:00 60 18 100 Mechanical Ventilator 30 61 18 30 09/28/19 20:00 30 09/28/19 20:00 Mechanical Ventilator Mechanical Ventilator Mechanical Ventilator Mechanical Ventilator 09/28/19 17:16 63 178/88 09/28/19 16:00 Mechanical Ventilator Mechanical Ventilator Mechanical Ventilator Mechanical Ventilator 09/28/19 16:00 98.2 63 18 178/88 (118) 100 09/28/19 16:00 58 09/28/19 16:00 30 09/28/19 15:10 61 18 100 Mechanical Ventilator 30 62 18 30 09/28/19 13:31 166/105 09/28/19 13:30 98.0 73 20 166/105 (125) 100 09/28/19 12:00 Mechanical Ventilator Mechanical Ventilator Mechanical Ventilator Mechanical Ventilator 09/28/19 12:00 30 09/28/19 11:33 73 09/28/19 11:01 58 18 30 Labs: Labs Test 09/27/19 03:41 09/28/19 03:17 09/28/19 09:50 09/29/19 05:00 White Blood Count 9.4 K/UL (4.8-10.8) 7.5 K/UL (4.8-10.8) 10.1 K/UL (4.8-10.8) Red Blood Count 2.86 M/UL (4.20-5.40) 2.69 M/UL (4.20-5.40) 2.57 M/UL (4.20-5.40) Hemoglobin 8.7 G/DL (12.0-16.0) 8.2 G/DL (12.0-16.0) 7.8 G/DL (12.0-16.0) Hematocrit 25.6 % (37.0-47.0) 23.9 % (37.0-47.0) 22.6 % (37.0-47.0) Mean Corpuscular Volume 89 FL (80-99) 89 FL (80-99) 88 FL (80-99) Mean Corpuscular Hemoglobin 30.4 PG (27.0-31.0) 30.4 PG (27.0-31.0) 30.3 PG (27.0-31.0) Mean Corpuscular Hemoglobin Concent 34.1 G/DL (32.0-36.0) 34.2 G/DL (32.0-36.0) 34.5 G/DL (32.0-36.0) Red Cell Distribution Width 14.8 % (11.6-14.8) 15.0 % (11.6-14.8) 15.0 % (11.6-14.8) Platelet Count 407 K/UL (150-450) 368 K/UL (150-450) 338 K/UL (150-450) Mean Platelet Volume 4.8 FL (6.5-10.1) 4.5 FL (6.5-10.1) 5.1 FL (6.5-10.1) Neutrophils (%) (Auto) 69.2 % (45.0-75.0) 60.7 % (45.0-75.0) % (45.0-75.0) Lymphocytes (%) (Auto) 24.6 % (20.0-45.0) 31.3 % (20.0-45.0) % (20.0-45.0) Monocytes (%) (Auto) 3.3 % (1.0-10.0) 5.2 % (1.0-10.0) % (1.0-10.0) Eosinophils (%) (Auto) 2.3 % (0.0-3.0) 1.9 % (0.0-3.0) % (0.0-3.0) Basophils (%) (Auto) 0.7 % (0.0-2.0) 0.9 % (0.0-2.0) % (0.0-2.0) Sodium Level 132 MMOL/L (136-145) 143 MMOL/L (136-145) 138 MMOL/L (136-145) Potassium Level 4.7 MMOL/L (3.5-5.1) 3.9 MMOL/L (3.5-5.1) 3.6 MMOL/L (3.5-5.1) Chloride Level 95 MMOL/L (98-107) 104 MMOL/L (98-107) 101 MMOL/L (98-107) Carbon Dioxide Level 25 MMOL/L (21-32) 26 MMOL/L (21-32) 26 MMOL/L (21-32) Anion Gap 12 mmol/L (5-15) 13 mmol/L (5-15) 12 mmol/L (5-15) Blood Urea Nitrogen 135 mg/dL (7-18) 80 mg/dL (7-18) 102 mg/dL (7-18) Creatinine 4.0 MG/DL (0.55-1.30) 2.7 MG/DL (0.55-1.30) 3.1 MG/DL (0.55-1.30) Estimat Glomerular Filtration Rate 10.8 mL/min (>60) 17.0 mL/min (>60) 14.5 mL/min (>60) Glucose Level 113 MG/DL (74-106) 72 MG/DL (74-106) 102 MG/DL (74-106) Calcium Level 8.7 MG/DL (8.5-10.1) 8.6 MG/DL (8.5-10.1) 8.5 MG/DL (8.5-10.1) Total Bilirubin 0.4 MG/DL (0.2-1.0) 0.5 MG/DL (0.2-1.0) 0.5 MG/DL (0.2-1.0) Aspartate Amino Transf (AST/SGOT) 415 U/L (15-37) 344 U/L (15-37) 255 U/L (15-37) Alanine Aminotransferase (ALT/SGPT) 389 U/L (12-78) 344 U/L (12-78) 246 U/L (12-78) Alkaline Phosphatase 489 U/L (46-116) 424 U/L (46-116) 400 U/L (46-116) Total Protein 7.5 G/DL (6.4-8.2) 6.9 G/DL (6.4-8.2) 6.7 G/DL (6.4-8.2) Albumin 2.4 G/DL (3.4-5.0) 2.1 G/DL (3.4-5.0) 2.0 G/DL (3.4-5.0) Globulin 5.1 g/dL 4.8 g/dL 4.7 g/dL Albumin/Globulin Ratio 0.4 (1.0-2.7) 0.4 (1.0-2.7) Thyroid Stimulating Hormone (TSH) 6.076 uiU/mL (0.358-3.740) Free Thyroxine 1.46 NG/DL (0.76-1.46) Stool Occult Blood Positive (NEGATIVE) Test 09/29/19 05:34 Phosphorus Level 4.3 MG/DL (2.5-4.9) Magnesium Level 2.5 MG/DL (1.8-2.4) Objective: WDWN NAD trach in place reduced breath sounds without rhonchi or wheeze [id number] without MRG NABS nontender no HSM no CCE contractures feeding tube in place no distention reduced LOC and weak nonfocal cachectic reviewed and edited Accucheck: 89 Malcolm Cruz MD Sep 29, 2019 09:26
--- NOTE | 2019-09-29 09:28 | Nephrology Progress Note ---
Assessment/Plan Problem List: (1) Liver enzyme elevation Assessment: Acute (2) ESRD (end stage renal disease) on dialysis (3) Malnutrition (4) Anemia in CKD (chronic kidney disease) (5) Hypotension (6) Thrombocytopenia (7) Sepsis Assessment: klebsiella in blood Assessment -Early sepsis with shock. -Healthcare-associated pneumonia. -Severe protein-calorie malnutrition. -Thrombocytopenia. - End-stage renal disease. - History of hypertension. - Bradycardia. - HypoThyroid Plan Labs reviewed Liver enzymes rising, hepatitis panel ordered today's labs indicates lowering of liver enzymes Tracheostomy September 07 Last dialysis September 26 Chest tube on the left side was put in on September 01 was discontinued September 07 Patient transfused 3 units of packed RBCs for low hemoglobin Remains full code Blood pressure fluctuating, will start hydralazine via NG tube for blood pressure Magnesium and potassium supplement intravenously as needed Patient underwent PEG placement August 16 patient remains intubated on ventilator Discussed with RN Aim to wean from ventilator or consider tracheostomy Permacath was removed on August 12 Dialysis 08/11 Transfusion as needed Patient had hematemesis meds IV as possible Surveillance blood cultures tomorrow Plan to put the permacath back in on Thursday if cultures are negative keep BP and BS in check Inflammatory markers per orders Subjective ROS Limited/Unobtainable: Yes Objective Objective Last 24 Hour Vital Signs Date Time Temp Pulse Resp B/P (MAP) Pulse Ox O2 Delivery O2 Flow Rate FiO2 09/29/19 09:18 73 18 30 09/29/19 09:16 68 152/91 09/29/19 08:00 30 09/29/19 08:00 98.1 68 18 152/91 (111) 96 09/29/19 07:45 53 25 95 Mechanical Ventilator 30 66 20 30 09/29/19 07:44 78 09/29/19 04:42 62 18 30 09/29/19 04:00 30 09/29/19 04:00 Mechanical Ventilator Mechanical Ventilator Mechanical Ventilator Mechanical Ventilator 09/29/19 04:00 97.2 69 18 154/76 (102) 100 09/29/19 04:00 69 09/29/19 03:44 64 18 100 Mechanical Ventilator 30 63 18 30 09/29/19 00:00 Mechanical Ventilator Mechanical Ventilator Mechanical Ventilator Mechanical Ventilator 09/29/19 00:00 61 09/29/19 00:00 97.5 61 18 148/75 (99) 100 09/28/19 23:15 65 18 100 Mechanical Ventilator 30 65 18 30 09/28/19 20:00 61 18 148/75 (99) 100 09/28/19 20:00 60 09/28/19 20:00 60 18 100 Mechanical Ventilator 30 61 18 30 09/28/19 20:00 30 09/28/19 20:00 Mechanical Ventilator Mechanical Ventilator Mechanical Ventilator Mechanical Ventilator 09/28/19 17:16 63 178/88 09/28/19 16:00 Mechanical Ventilator Mechanical Ventilator Mechanical Ventilator Mechanical Ventilator 09/28/19 16:00 98.2 63 18 178/88 (118) 100 09/28/19 16:00 58 09/28/19 16:00 30 09/28/19 15:10 61 18 100 Mechanical Ventilator 30 62 18 30 09/28/19 13:31 166/105 09/28/19 13:30 98.0 73 20 166/105 (125) 100 09/28/19 12:00 Mechanical Ventilator Mechanical Ventilator Mechanical Ventilator Mechanical Ventilator 09/28/19 12:00 30 09/28/19 11:33 73 09/28/19 11:01 58 18 30 Intake and Output 09/28/19 09/29/19 19:00 07:00 Intake Total 520 ml 420 ml Output Total 250 ml 200 ml Balance 270 ml 220 ml Intake Free Water 100 ml Tube Feeding 420 ml 420 ml Output Urine Total 250 ml 200 ml # Bowel Movements 4 4 Laboratory Tests 09/28/19 09:50: Stool Occult Blood Positive 09/29/19 05:00: White Blood Count 10.1, Red Blood Count 2.57L, Hemoglobin 7.8L, Hematocrit 22.6L , Mean Corpuscular Volume 88, Mean Corpuscular Hemoglobin 30.3, Mean Corpuscular Hemoglobin Concent 34.5, Red Cell Distribution Width 15.0H, Platelet Count 338, Mean Platelet Volume 5.1L, Neutrophils (%) (Auto) , Lymphocytes (%) (Auto) , Monocytes (%) (Auto) , Eosinophils (%) (Auto) , Basophils (%) (Auto) , Sodium Level 138, Potassium Level 3.6, Chloride Level 101 , Carbon Dioxide Level 26, Anion Gap 12, Blood Urea Nitrogen 102H, Creatinine 3.1H, Estimat Glomerular Filtration Rate 14.5, Glucose Level 102, Calcium Level 8.5, Total Bilirubin 0.5, Aspartate Amino Transf (AST/SGOT) 255H, Alanine Aminotransferase (ALT/SGPT) 246H, Alkaline Phosphatase 400H, Total Protein 6.7, Albumin 2.0L, Globulin 4.7, Albumin/Globulin Ratio 0.4L 09/29/19 05:34: Phosphorus Level 4.3, Magnesium Level 2.5H Height (Feet): 5 Height (Inches): 4.00 Weight (Pounds): 112 General Appearance: no apparent distress, lethargic EENT: other - Trached and vent Cardiovascular: normal rate Respiratory/Chest: decreased breath sounds Abdomen: other - PEG Objective no change William Blackwood MD Sep 29, 2019 09:28
--- NOTE | 2019-09-29 09:50 | General Progress Note ---
Assessment/Plan Status: stable, not improved, unchanged, deteriorating Assessment/Plan: Assessment - Severe ulcerative esophagitis - mild elevation in LFT, Hepatitis B/C negative --> now sudden rise - ? related to new 1.9 cm mass near GB - ? autoimmune / high ESR - abnormal liver on CT - ? chronic disease / fibrosis - Resp failure - trach - s/p recent Chest tube and removal - Renal failure - aspiration risk --> s/p PEG - anemia - bradycardia - Poor prognosis Recommendations - CT reviewed -? shock liver. Repeat in am>>> improving - check autoimmune markers - pending>>> neg JOLIE - check AFP - GT care - water flushes - elevate HOB - monitor H&H - ppi -check stool ob>>>positive>>> ordered one more patient poor candidate for GI procedures - vent -improving LFTS Subjective ROS Limited/Unobtainable: No Allergies: Coded Allergies: VANCOMYCIN (Unverified Allergy, Unknown, 08/02/19) Subjective s/p blood transfusion Objective Last 24 Hour Vital Signs Date Time Temp Pulse Resp B/P (MAP) Pulse Ox O2 Delivery O2 Flow Rate FiO2 09/29/19 09:18 73 18 30 09/29/19 09:16 68 152/91 09/29/19 08:00 30 09/29/19 08:00 98.1 68 18 152/91 (111) 96 09/29/19 07:45 53 25 95 Mechanical Ventilator 30 66 20 30 09/29/19 07:44 78 09/29/19 04:42 62 18 30 09/29/19 04:00 30 09/29/19 04:00 Mechanical Ventilator Mechanical Ventilator Mechanical Ventilator Mechanical Ventilator 09/29/19 04:00 97.2 69 18 154/76 (102) 100 09/29/19 04:00 69 09/29/19 03:44 64 18 100 Mechanical Ventilator 30 63 18 30 09/29/19 00:00 Mechanical Ventilator Mechanical Ventilator Mechanical Ventilator Mechanical Ventilator 09/29/19 00:00 61 09/29/19 00:00 97.5 61 18 148/75 (99) 100 09/28/19 23:15 65 18 100 Mechanical Ventilator 30 65 18 30 09/28/19 20:00 61 18 148/75 (99) 100 09/28/19 20:00 60 09/28/19 20:00 60 18 100 Mechanical Ventilator 30 61 18 30 09/28/19 20:00 30 09/28/19 20:00 Mechanical Ventilator Mechanical Ventilator Mechanical Ventilator Mechanical Ventilator 09/28/19 17:16 63 178/88 09/28/19 16:00 Mechanical Ventilator Mechanical Ventilator Mechanical Ventilator Mechanical Ventilator 09/28/19 16:00 98.2 63 18 178/88 (118) 100 09/28/19 16:00 58 09/28/19 16:00 30 09/28/19 15:10 61 18 100 Mechanical Ventilator 30 62 18 30 09/28/19 13:31 166/105 09/28/19 13:30 98.0 73 20 166/105 (125) 100 09/28/19 12:00 Mechanical Ventilator Mechanical Ventilator Mechanical Ventilator Mechanical Ventilator 09/28/19 12:00 30 09/28/19 11:33 73 09/28/19 11:01 58 18 30 Intake and Output 09/28/19 09/29/19 19:00 07:00 Intake Total 520 ml 420 ml Output Total 250 ml 200 ml Balance 270 ml 220 ml Intake Free Water 100 ml Tube Feeding 420 ml 420 ml Output Urine Total 250 ml 200 ml # Bowel Movements 4 4 Laboratory Tests 09/28/19 09:50: Stool Occult Blood Positive 09/29/19 05:00: White Blood Count 10.1, Red Blood Count 2.57L, Hemoglobin 7.8L, Hematocrit 22.6L , Mean Corpuscular Volume 88, Mean Corpuscular Hemoglobin 30.3, Mean Corpuscular Hemoglobin Concent 34.5, Red Cell Distribution Width 15.0H, Platelet Count 338, Mean Platelet Volume 5.1L, Neutrophils (%) (Auto) , Lymphocytes (%) (Auto) , Monocytes (%) (Auto) , Eosinophils (%) (Auto) , Basophils (%) (Auto) , Sodium Level 138, Potassium Level 3.6, Chloride Level 101 , Carbon Dioxide Level 26, Anion Gap 12, Blood Urea Nitrogen 102H, Creatinine 3.1H, Estimat Glomerular Filtration Rate 14.5, Glucose Level 102, Calcium Level 8.5, Total Bilirubin 0.5, Aspartate Amino Transf (AST/SGOT) 255H, Alanine Aminotransferase (ALT/SGPT) 246H, Alkaline Phosphatase 400H, Total Protein 6.7, Albumin 2.0L, Globulin 4.7, Albumin/Globulin Ratio 0.4L 09/29/19 05:34: Phosphorus Level 4.3, Magnesium Level 2.5H Height (Feet): 5 Height (Inches): 4.00 Weight (Pounds): 112 General Appearance: no apparent distress EENT: normal ENT inspection Neck: supple Cardiovascular: normal rate Abdomen: normal bowel sounds, non tender, soft Extremities: non-tender Kenny Rudolph MD Sep 29, 2019 09:50
--- NOTE | 2019-09-29 10:18 | Infectious Diseases Prog Note ---
Assessment/Plan Assessment/Plan A; 1. Hailee sepsis treated 2. Klebsiella sepsis , treated 3. Right shoulder septic arthritis, status post surgery. 4. Diabetes. 5. Hypertension. 6. Anemia 7. Thrombocytopenia improving 9. Atelectasis , left lung collapse 10. Pleural effusion, hemothorax 11. Ulcerative esophagitis PLAN: 1. Observe off antibiotic 2. Waiting for placement Subjective ROS Limited/Unobtainable: Yes Allergies: Coded Allergies: VANCOMYCIN (Unverified Allergy, Unknown, 08/02/19) Objective Vital Signs Last 24 Hour Vital Signs Date Time Temp Pulse Resp B/P (MAP) Pulse Ox O2 Delivery O2 Flow Rate FiO2 09/29/19 09:18 73 18 30 09/29/19 09:16 68 152/91 09/29/19 08:00 30 09/29/19 08:00 98.1 68 18 152/91 (111) 96 09/29/19 07:45 53 25 95 Mechanical Ventilator 30 66 20 30 09/29/19 07:44 78 09/29/19 04:42 62 18 30 09/29/19 04:00 30 09/29/19 04:00 Mechanical Ventilator Mechanical Ventilator Mechanical Ventilator Mechanical Ventilator 09/29/19 04:00 97.2 69 18 154/76 (102) 100 09/29/19 04:00 69 09/29/19 03:44 64 18 100 Mechanical Ventilator 30 63 18 30 09/29/19 00:00 Mechanical Ventilator Mechanical Ventilator Mechanical Ventilator Mechanical Ventilator 09/29/19 00:00 61 09/29/19 00:00 97.5 61 18 148/75 (99) 100 09/28/19 23:15 65 18 100 Mechanical Ventilator 30 65 18 30 09/28/19 20:00 61 18 148/75 (99) 100 09/28/19 20:00 60 09/28/19 20:00 60 18 100 Mechanical Ventilator 30 61 18 30 09/28/19 20:00 30 09/28/19 20:00 Mechanical Ventilator Mechanical Ventilator Mechanical Ventilator Mechanical Ventilator 09/28/19 17:16 63 178/88 09/28/19 16:00 Mechanical Ventilator Mechanical Ventilator Mechanical Ventilator Mechanical Ventilator 09/28/19 16:00 98.2 63 18 178/88 (118) 100 09/28/19 16:00 58 09/28/19 16:00 30 09/28/19 15:10 61 18 100 Mechanical Ventilator 30 62 18 30 09/28/19 13:31 166/105 09/28/19 13:30 98.0 73 20 166/105 (125) 100 09/28/19 12:00 Mechanical Ventilator Mechanical Ventilator Mechanical Ventilator Mechanical Ventilator 09/28/19 12:00 30 09/28/19 11:33 73 09/28/19 11:01 58 18 30 Height (Feet): 5 Height (Inches): 4.00 Weight (Pounds): 112 General Appearance: cachetic HEENT: mucous membranes moist Respiratory/Chest: lungs clear, other - on ventilator Cardiovascular: normal rate Abdomen: soft, non tender Extremities: no edema Neurologic/Psychiatric: disoriented, aphasia Musculoskeletal: atrophy Laboratory Tests Test 09/29/19 05:00 09/29/19 05:34 White Blood Count 10.1 K/UL (4.8-10.8) Red Blood Count 2.57 M/UL (4.20-5.40) L Hemoglobin 7.8 G/DL (12.0-16.0) L Hematocrit 22.6 % (37.0-47.0) L Mean Corpuscular Volume 88 FL (80-99) Mean Corpuscular Hemoglobin 30.3 PG (27.0-31.0) Mean Corpuscular Hemoglobin Concent 34.5 G/DL (32.0-36.0) Red Cell Distribution Width 15.0 % (11.6-14.8) H Platelet Count 338 K/UL (150-450) Mean Platelet Volume 5.1 FL (6.5-10.1) L Neutrophils (%) (Auto) % (45.0-75.0) Lymphocytes (%) (Auto) % (20.0-45.0) Monocytes (%) (Auto) % (1.0-10.0) Eosinophils (%) (Auto) % (0.0-3.0) Basophils (%) (Auto) % (0.0-2.0) Sodium Level 138 MMOL/L (136-145) Potassium Level 3.6 MMOL/L (3.5-5.1) Chloride Level 101 MMOL/L (98-107) Carbon Dioxide Level 26 MMOL/L (21-32) Anion Gap 12 mmol/L (5-15) Blood Urea Nitrogen 102 mg/dL (7-18) H Creatinine 3.1 MG/DL (0.55-1.30) H Estimat Glomerular Filtration Rate 14.5 mL/min (>60) Glucose Level 102 MG/DL (74-106) Calcium Level 8.5 MG/DL (8.5-10.1) Total Bilirubin 0.5 MG/DL (0.2-1.0) Aspartate Amino Transf (AST/SGOT) 255 U/L (15-37) H Alanine Aminotransferase (ALT/SGPT) 246 U/L (12-78) H Alkaline Phosphatase 400 U/L (46-116) H Total Protein 6.7 G/DL (6.4-8.2) Albumin 2.0 G/DL (3.4-5.0) L Globulin 4.7 g/dL Albumin/Globulin Ratio 0.4 (1.0-2.7) L Phosphorus Level 4.3 MG/DL (2.5-4.9) Magnesium Level 2.5 MG/DL (1.8-2.4) H Current Medications Medications (Trade) Dose Ordered Sig/Javier Route PRN Reason Start Time Stop Time Status Last Admin Dose Admin Acetylcysteine (Mucomyst) 100 mg Q4HRT N 08/31/19 19:00 11/29/19 18:59 09/29/19 07:30 Albuterol/ Ipratropium (Albuterol/ Ipratropium) 3 ml Q4HRT N 09/22/19 15:00 12/09/19 14:59 09/29/19 07:30 Amlodipine Besylate (Norvasc) 5 mg BID ORAL 09/25/19 09:00 10/25/19 08:59 09/29/19 09:16 Chlorhexidine Gluconate (Nae-Hex 2%) 1 applic DAILY@1999 TOPIC 09/17/19 20:00 12/16/19 19:59 09/28/19 20:00 Clonidine HCl (Catapres Tab) 0.1 mg Q4H PRN ORAL For High Blood Pressure 09/22/19 21:00 12/21/19 20:59 09/28/19 13:31 Dextrose (Dextrose 50%) 25 ml Q30M PRN IV Hypoglycemia 09/02/19 06:15 12/01/19 06:14 3/22/20 12:11 Dextrose (Dextrose 50%) 50 ml Q30M PRN IV Hypoglycemia 09/02/19 06:15 12/01/19 06:14 Lansoprazole (Prevacid) 30 mg DAILY GT 09/27/19 09:00 10/27/19 08:59 09/29/19 09:16 Levothyroxine Sodium (Synthroid) 125 mcg DAILY@0630 ORAL 09/22/19 06:30 10/22/19 06:29 09/29/19 06:07 Psyllium Hydrophilic Mucilloid (Metamucil) 1 pkt DAILY ORAL 09/22/19 15:00 10/22/19 14:59 09/29/19 09:16 Sevelamer Carbonate (Renvela) 800 mg Q8HR NG 09/25/19 14:00 12/24/19 13:59 09/29/19 06:07 Warren Parks MD Sep 29, 2019 10:18
--- NOTE | 2019-09-29 11:19 | Hematology/Onc Progress Note ---
Assessment/Plan Assessment/Plan # Thrombocytopenia ow THROMBOCYTOSIS - potential causes multifactorial, evaluate liver and viral etiologies to begin, in this case due to sepsis with septic shock also with cirrhosis and liver disease --> Hep panel and HIV ordered --> neg --> US abd to evaluate for cirrhosis and hsm ordered --> reviewed --> Peripheral smear ordered to evaluate for blasts /schistocytes --> none noted --> abx and other meds have been reviewed --> ok for ppx if plt >50k w/ either heparin or lovenox --> Transfuse if Plt < 20k and fever, or if Plt < 10k without fever --> okay for permacath change once plt better--> for 08/14 --> plt trend: 43-->83-->237k-->292-->341-->315-->388 -->444-->530-->252k-->344- >529->525k # Anemia of chronic disease due to underlying chronic medical issues, multifactorial v Gi bleed --> Anemia workup has been ordered, rule out gi bleed --> No evidence of hemolysis is noted, peripheral smear has been reviewed. --> Hgb goal >7. Transfuse prn. --> Epogen has been started --> HOLD OFF IRON ferritin is >1000 --> Medications have been reviewed --> low threshold for gi evaluation in case has occult + --> hgb 9-->6.7-->9.2 -->10.5-->10.6 -->10.7-->10-->10.5-->9.8-->10.4-->9.5--> 3.6-->9.6-->9.7-->10-->10.3-->11->9.9->8.3->8.7 --> blood tx: 08/11, 08/31 --> CT Chest r/o hemothorax --> does show confirmation of a large left hemothorax. Complete atelectasis of the left lower lobe and partial left upper lobe atelectasis demonstrated. Mild rightward shift of the heart and mediastinum. # Sepsis with shock. --> abx as per id, recs noted--> off abx --> pressors as needed # Healthcare-associated pneumonia. --> recs reviewed --> abx: jung/micafungin-->jung-->off --> 08/24 chest: moderate left pleural effusion # Severe protein-calorie malnutrition. --> nutritional support # End-stage renal disease --> had as renal hd --> with permacath # History of hypertension. --> per cards, now with Bradycardia. # Resp failure s/p vent/trach # HypoThyroid # Ngt feedings # Dvt ppx scd's The timing of this note does not necessarily reflect the time of the patient was seen. Greatly appreciate consultation. Subjective Constitutional: Denies: no symptoms, chills, fever, malaise, weakness, other HEENT: Denies: no symptoms, eye pain, blurred vision, tearing, double vision, ear pain, ear discharge, nose pain, nose congestion, throat pain, throat swelling, mouth pain, mouth swelling, other Cardiovascular: Denies: no symptoms, chest pain, edema, irregular heart rate, lightheadedness, palpitations, syncope, other Gastrointestinal/Abdominal: Denies: no symptoms, abdomen distended, abdominal pain, black stools, tarry stools, blood in stool, constipated, diarrhea, difficulty swallowing, nausea, poor appetite, poor fluid intake, rectal bleeding , vomiting, other Genitourinary: Denies: no symptoms, burning, discharge, frequency, flank pain, hematuria, incontinence, pain, urgency, other Neurologic/Psychiatric: Denies: no symptoms, anxiety, depressed, emotional problems, headache, numbness, paresthesia, pre-existing deficit, seizure, tingling, tremors, weakness, other Endocrine: Denies: no symptoms, excessive sweating, flushing, intolerance to cold, intolerance to heat, increased hunger, increased thirst, increased urine, unexplained weight gain, unexplained weight loss, other Hematologic/Lymphatic: Denies: no symptoms, anemia, easy bleeding, easy bruising, adenopathy, other Allergies: Coded Allergies: VANCOMYCIN (Unverified Allergy, Unknown, 08/02/19) Subjective 08/11: no bleeding or chills, labs reviewed, no major bleeding, plt less than 50k 08/12: icu, s/p blood, hgb improved to 9.2, 08/14: icu, pending consent for thora and permacath, labs reviewed 08/15: new permacath placed, no bleeding, for hd, plt much improved, started lovenox sq 08/16: ett to be adjusted, bp on high end, micafungin started, possible bronch 08/17: weaning as per pulm, no events otherwise, labs noted 08/18: no events no bleeding, remains confused on vent, for hd 08/20: icu, failed to wean, labs reviewed, jung 08/21: resting in bed, no overnight events, labs reviewed 08/22: awake, confused, restraints, no overnight events 08/23: no events, no bleeding, on ppi bid 08/24: icu, failed to wean, labs reviewed 08/25: no overnight events, us chest, restraints, afebrile 08/26 difficult in weaning, nad, seen by surg, pulm labs noted 08/27 awake on restraints, thoracentesis for am, labs reviewed 08/29 no bleeding, no night sweats, no major changes, on ppi bid 08/30 no major events, remains on vent, no bleeding, dw pcp 08/31 hgb dropped to 3.6, has been transfused with prbc, in icu, dw Rn, ct chest pend 09/01 no major events, no bleeding, labs noted, hgb remains low, hgb 9.6 09/03 lethargic, left chest tube dry/intact, off abx, vent 09/04 remains on a vent, synthroid, labs reviewed 09/05 awake and alert, no acute events, hgb 9.8, no new orders 09/06 no bleeding or chills, labs noted, no major events overnight, dw rn 09/07 no events, no night sweats, no bleeding, no fc, remains agitated in the am 09/08 remains in the icu, trach was done, on vent, abx off, on epo 09/10 transferred to sdu, restraints, vent, labs reviewed 09/11 tube feeds have been ongoing, no f/c, labs reviewed 09/12 no events, no bleeding, no night sweats, hgb 10 09/13 tsh is improved, remains confused, hgb is 11, no bleeding 09/14 no events, no bleeding, labs noted, vitals stable 09/15 confused, no acute events, restraints, dc planning 09/17 no new changes, no recent labs, placement pending 09/18 no events, no bleeding, no night sweats, fevers 09/19 nonverbal, vent, elevated bp, off abx 09/20 labs reviewed, david rn, no bleeding, meds reviewed 09/21 is a+o x 1, nonverbal, no bleeding, labs reviewed, no night sweats 09/22 no major events, no bleeding, no night sweats, no f/c, labs noted hgb 10.5 09/25 no events, no bleeding, labs noted, cbc reviewed 09/26 no events, with gtube feeds ongoing and with event, labs noted 09/27 labs have been reviewed, no night sweats, no fc 09/28 labs reviewed, no night sweats, hgb lower, but holding off on transfusion Objective Objective Current Medications Medications (Trade) Dose Ordered Sig/Javier Route PRN Reason Start Time Stop Time Status Last Admin Dose Admin Acetylcysteine (Mucomyst) 100 mg Q4HRT [facility] 08/31/19 19:00 11/29/19 18:59 09/29/19 07:30 Albuterol/ Ipratropium (Albuterol/ Ipratropium) 3 ml Q4HRT [facility] 09/22/19 15:00 12/09/19 14:59 09/29/19 07:30 Amlodipine Besylate (Norvasc) 5 mg BID ORAL 09/25/19 09:00 10/25/19 08:59 09/29/19 09:16 Chlorhexidine Gluconate (Nae-Hex 2%) 1 applic DAILY@1999 TOPIC 09/17/19 20:00 12/16/19 19:59 09/28/19 20:00 Clonidine HCl (Catapres Tab) 0.1 mg Q4H PRN ORAL For High Blood Pressure 09/22/19 21:00 12/21/19 20:59 09/28/19 13:31 Dextrose (Dextrose 50%) 25 ml Q30M PRN IV Hypoglycemia 09/02/19 06:15 12/01/19 06:14 09/04/19 12:11 Dextrose (Dextrose 50%) 50 ml Q30M PRN IV Hypoglycemia 09/02/19 06:15 12/01/19 06:14 Lansoprazole (Prevacid) 30 mg DAILY GT 09/27/19 09:00 10/27/19 08:59 09/29/19 09:16 Levothyroxine Sodium (Synthroid) 125 mcg DAILY@0630 ORAL 09/22/19 06:30 10/22/19 06:29 09/29/19 06:07 Psyllium Hydrophilic Mucilloid (Metamucil) 1 pkt DAILY ORAL 09/22/19 15:00 10/22/19 14:59 09/29/19 09:16 Sevelamer Carbonate (Renvela) 800 mg Q8HR NG 09/25/19 14:00 12/24/19 13:59 09/29/19 06:07 Last 24 Hour Vital Signs Date Time Temp Pulse Resp B/P (MAP) Pulse Ox O2 Delivery O2 Flow Rate FiO2 09/29/19 09:18 73 18 30 09/29/19 09:16 68 152/91 09/29/19 08:00 Mechanical Ventilator Mechanical Ventilator Mechanical Ventilator Mechanical Ventilator 09/29/19 08:00 30 09/29/19 08:00 98.1 68 18 152/91 (111) 96 09/29/19 07:45 53 25 95 Mechanical Ventilator 30 66 20 30 09/29/19 07:44 78 09/29/19 04:42 62 18 30 09/29/19 04:00 30 09/29/19 04:00 Mechanical Ventilator Mechanical Ventilator Mechanical Ventilator Mechanical Ventilator 09/29/19 04:00 97.2 69 18 154/76 (102) 100 09/29/19 04:00 69 09/29/19 03:44 64 18 100 Mechanical Ventilator 30 63 18 30 09/29/19 00:00 Mechanical Ventilator Mechanical Ventilator Mechanical Ventilator Mechanical Ventilator 09/29/19 00:00 61 09/29/19 00:00 97.5 61 18 148/75 (99) 100 09/28/19 23:15 65 18 100 Mechanical Ventilator 30 65 18 30 09/28/19 20:00 61 18 148/75 (99) 100 09/28/19 20:00 60 09/28/19 20:00 60 18 100 Mechanical Ventilator 30 61 18 30 09/28/19 20:00 30 09/28/19 20:00 Mechanical Ventilator Mechanical Ventilator Mechanical Ventilator Mechanical Ventilator 4/15/20 17:16 63 178/88 09/28/19 16:00 Mechanical Ventilator Mechanical Ventilator Mechanical Ventilator Mechanical Ventilator 09/28/19 16:00 98.2 63 18 178/88 (118) 100 09/28/19 16:00 58 09/28/19 16:00 30 09/28/19 15:10 61 18 100 Mechanical Ventilator 30 62 18 30 09/28/19 13:31 166/105 09/28/19 13:30 98.0 73 20 166/105 (125) 100 09/28/19 12:00 Mechanical Ventilator Mechanical Ventilator Mechanical Ventilator Mechanical Ventilator 09/28/19 12:00 30 09/28/19 11:33 73 09/28/19 11:01 58 18 30 09/28/19 08:35 159 81/69 09/28/19 08:15 97.9 81 20 154/84 (107) 99 09/28/19 08:10 Mechanical Ventilator Mechanical Ventilator Mechanical Ventilator Mechanical Ventilator 09/28/19 08:00 30 09/28/19 07:49 72 18 100 Mechanical Ventilator 30 69 18 30 09/28/19 07:47 70 09/28/19 05:24 78 18 30 09/28/19 04:00 98.2 84 18 155/81 (105) 100 09/28/19 04:00 Mechanical Ventilator Mechanical Ventilator Mechanical Ventilator Mechanical Ventilator 09/28/19 04:00 30 09/28/19 03:34 80 09/28/19 03:30 80 18 98 Mechanical Ventilator 30 82 24 30 09/28/19 00:41 80 18 30 09/28/19 00:00 30 09/28/19 00:00 97.9 78 18 151/82 (105) 100 09/28/19 00:00 Mechanical Ventilator Mechanical Ventilator Mechanical Ventilator Mechanical Ventilator 09/27/19 23:30 77 18 96 Mechanical Ventilator 30 79 20 30 09/27/19 23:28 78 09/27/19 21:18 82 18 30 09/27/19 20:00 30 09/27/19 20:00 Mechanical Ventilator Mechanical Ventilator Mechanical Ventilator Mechanical Ventilator 09/27/19 20:00 97.2 79 24 119/67 (84) 92 09/27/19 19:34 79 09/27/19 19:30 83 18 94 Mechanical Ventilator 30 88 18 30 09/27/19 18:12 71 124/78 4/14/20 16:57 70 19 30 09/27/19 16:00 96.6 75 21 124/78 (93) 100 09/27/19 16:00 30 09/27/19 16:00 85 09/27/19 16:00 Mechanical Ventilator Mechanical Ventilator Mechanical Ventilator Mechanical Ventilator 09/27/19 14:58 71 18 100 Mechanical Ventilator 30 72 18 30 09/27/19 13:53 69 20 30 09/27/19 12:00 85 09/27/19 12:00 97.0 76 20 139/73 (95) 100 09/27/19 12:00 30 09/27/19 12:00 Mechanical Ventilator Mechanical Ventilator Mechanical Ventilator Mechanical Ventilator 09/27/19 11:31 74 19 100 Mechanical Ventilator 30 75 20 30 Intake and Output 09/28/19 09/29/19 19:00 07:00 Intake Total 520 ml 420 ml Output Total 250 ml 200 ml Balance 270 ml 220 ml Intake Free Water 100 ml Tube Feeding 420 ml 420 ml Output Urine Total 250 ml 200 ml # Bowel Movements 4 4 Labs Test 09/27/19 03:41 09/28/19 03:17 09/28/19 09:50 09/29/19 05:00 White Blood Count 9.4 K/UL (4.8-10.8) 7.5 K/UL (4.8-10.8) 10.1 K/UL (4.8-10.8) Red Blood Count 2.86 M/UL (4.20-5.40) 2.69 M/UL (4.20-5.40) 2.57 M/UL (4.20-5.40) Hemoglobin 8.7 G/DL (12.0-16.0) 8.2 G/DL (12.0-16.0) 7.8 G/DL (12.0-16.0) Hematocrit 25.6 % (37.0-47.0) 23.9 % (37.0-47.0) 22.6 % (37.0-47.0) Mean Corpuscular Volume 89 FL (80-99) 89 FL (80-99) 88 FL (80-99) Mean Corpuscular Hemoglobin 30.4 PG (27.0-31.0) 30.4 PG (27.0-31.0) 30.3 PG (27.0-31.0) Mean Corpuscular Hemoglobin Concent 34.1 G/DL (32.0-36.0) 34.2 G/DL (32.0-36.0) 34.5 G/DL (32.0-36.0) Red Cell Distribution Width 14.8 % (11.6-14.8) 15.0 % (11.6-14.8) 15.0 % (11.6-14.8) Platelet Count 407 K/UL (150-450) 368 K/UL (150-450) 338 K/UL (150-450) Mean Platelet Volume 4.8 FL (6.5-10.1) 4.5 FL (6.5-10.1) 5.1 FL (6.5-10.1) Neutrophils (%) (Auto) 69.2 % (45.0-75.0) 60.7 % (45.0-75.0) % (45.0-75.0) Lymphocytes (%) (Auto) 24.6 % (20.0-45.0) 31.3 % (20.0-45.0) % (20.0-45.0) Monocytes (%) (Auto) 3.3 % (1.0-10.0) 5.2 % (1.0-10.0) % (1.0-10.0) Eosinophils (%) (Auto) 2.3 % (0.0-3.0) 1.9 % (0.0-3.0) % (0.0-3.0) Basophils (%) (Auto) 0.7 % (0.0-2.0) 0.9 % (0.0-2.0) % (0.0-2.0) Sodium Level 132 MMOL/L (136-145) 143 MMOL/L (136-145) 138 MMOL/L (136-145) Potassium Level 4.7 MMOL/L (3.5-5.1) 3.9 MMOL/L (3.5-5.1) 3.6 MMOL/L (3.5-5.1) Chloride Level 95 MMOL/L (98-107) 104 MMOL/L (98-107) 101 MMOL/L (98-107) Carbon Dioxide Level 25 MMOL/L (21-32) 26 MMOL/L (21-32) 26 MMOL/L (21-32) Anion Gap 12 mmol/L (5-15) 13 mmol/L (5-15) 12 mmol/L (5-15) Blood Urea Nitrogen 135 mg/dL (7-18) 80 mg/dL (7-18) 102 mg/dL (7-18) Creatinine 4.0 MG/DL (0.55-1.30) 2.7 MG/DL (0.55-1.30) 3.1 MG/DL (0.55-1.30) Estimat Glomerular Filtration Rate 10.8 mL/min (>60) 17.0 mL/min (>60) 14.5 mL/min (>60) Glucose Level 113 MG/DL (74-106) 72 MG/DL (74-106) 102 MG/DL (74-106) Calcium Level 8.7 MG/DL (8.5-10.1) 8.6 MG/DL (8.5-10.1) 8.5 MG/DL (8.5-10.1) Total Bilirubin 0.4 MG/DL (0.2-1.0) 0.5 MG/DL (0.2-1.0) 0.5 MG/DL (0.2-1.0) Aspartate Amino Transf (AST/SGOT) 415 U/L (15-37) 344 U/L (15-37) 255 U/L (15-37) Alanine Aminotransferase (ALT/SGPT) 389 U/L (12-78) 344 U/L (12-78) 246 U/L (12-78) Alkaline Phosphatase 489 U/L (46-116) 424 U/L (46-116) 400 U/L (46-116) Total Protein 7.5 G/DL (6.4-8.2) 6.9 G/DL (6.4-8.2) 6.7 G/DL (6.4-8.2) Albumin 2.4 G/DL (3.4-5.0) 2.1 G/DL (3.4-5.0) 2.0 G/DL (3.4-5.0) Globulin 5.1 g/dL 4.8 g/dL 4.7 g/dL Albumin/Globulin Ratio 0.4 (1.0-2.7) 0.4 (1.0-2.7) Thyroid Stimulating Hormone (TSH) 6.076 uiU/mL (0.358-3.740) Free Thyroxine 1.46 NG/DL (0.76-1.46) Stool Occult Blood Positive (NEGATIVE) Test 09/29/19 05:34 Phosphorus Level 4.3 MG/DL (2.5-4.9) Magnesium Level 2.5 MG/DL (1.8-2.4) Height (Feet): 5 Height (Inches): 4.00 Weight (Pounds): 112 Objective Physical Exam vitals: reviewed gen: nad pulm: on trach+ / vent, decreased breath sounds left, chest tube+ cv: rrr, no gmr abd: sfot, nt, nd ++ gt ext: no cce Gio Rob MD Sep 29, 2019 11:19
[2019-09-29 12:00] VITALS: BP 157/66
--- NOTE | 2019-09-29 13:36 | General Progress Note ---
Assessment/Plan Problem List: (1) Failure to thrive (0-17) ICD Codes: R62.51 - Failure to thrive (0-17) SNOMED: 797070214 (2) Hypertensive kidney disease ICD Codes: I12.9 - Hypertensive chronic kidney disease with stage 1 through stage 4 chronic kidney disease, or unspecified chronic kidney disease SNOMED: 23426265 (3) Pneumonia ICD Codes: J18.9 - Pneumonia, unspecified organism SNOMED: 699148537 Qualifiers: Qualified Codes: J18.9 - Pneumonia, unspecified organism (4) ESRD (end stage renal disease) ICD Codes: N18.6 - End stage renal disease SNOMED: 05748003 (5) Septic arthritis ICD Codes: M00.9 - Pyogenic arthritis, unspecified SNOMED: 468494747 (6) Thrombocytopenia ICD Codes: D69.6 - Thrombocytopenia, unspecified SNOMED: 353375870 (7) Hypotension ICD Codes: I95.9 - Hypotension, unspecified SNOMED: 22675227 Qualifiers: Qualified Codes: I95.3 - Hypotension of hemodialysis (8) Malnutrition ICD Codes: E46 - Unspecified protein-calorie malnutrition SNOMED: 17862644 Status: stable, not improved, unchanged, deteriorating Assessment/Plan: Continue vent support. Wean as able. Will discuss with pulmonary if patient could be weaned to trach collar.Suctioning and pulmonary toilet. Continue G-tube feedings. Monitor residuals Continue current blood pressure regimen with close monitoring of blood pressure. Hemodialysis with ultrafiltration per nephrology. Turn every 2 hours and good skin care. monitor labs/lfts monitor h/h may need transfusion dc hydralazine(per GI can cause transaminitis) Discharge planning in progress Subjective ROS Limited/Unobtainable: Yes Constitutional: Reports: malaise, weakness HEENT: Reports: no symptoms Cardiovascular: Reports: no symptoms Respiratory: Reports: shortness of breath Gastrointestinal/Abdominal: Reports: difficulty swallowing Genitourinary: Reports: no symptoms Neurologic/Psychiatric: Reports: anxiety Endocrine: Reports: no symptoms Hematologic/Lymphatic: Reports: anemia Allergies: Coded Allergies: VANCOMYCIN (Unverified Allergy, Unknown, 08/02/19) All Systems: reviewed and negative except above Subjective There were no overnight events. Patient remained stable on the ventilator. She occasionally opens her eyes. Tolerating feedings. LFTS trending down.h/h lower today. no signs of bleeding Objective Last 24 Hour Vital Signs Date Time Temp Pulse Resp B/P (MAP) Pulse Ox O2 Delivery O2 Flow Rate FiO2 09/29/19 12:00 Mechanical Ventilator Mechanical Ventilator Mechanical Ventilator Mechanical Ventilator 09/29/19 12:00 97.5 85 14 157/66 (96) 99 09/29/19 12:00 30 09/29/19 12:00 65 09/29/19 11:49 74 18 100 Mechanical Ventilator 30 74 18 30 09/29/19 09:18 73 18 30 09/29/19 09:16 68 152/91 09/29/19 08:00 Mechanical Ventilator Mechanical Ventilator Mechanical Ventilator Mechanical Ventilator 09/29/19 08:00 30 09/29/19 08:00 98.1 68 18 152/91 (111) 96 09/29/19 07:45 53 25 95 Mechanical Ventilator 30 66 20 30 09/29/19 07:44 78 09/29/19 04:42 62 18 30 09/29/19 04:00 30 09/29/19 04:00 Mechanical Ventilator Mechanical Ventilator Mechanical Ventilator Mechanical Ventilator 09/29/19 04:00 97.2 69 18 154/76 (102) 100 09/29/19 04:00 69 09/29/19 03:44 64 18 100 Mechanical Ventilator 30 63 18 30 09/29/19 00:00 Mechanical Ventilator Mechanical Ventilator Mechanical Ventilator Mechanical Ventilator 09/29/19 00:00 61 09/29/19 00:00 97.5 61 18 148/75 (99) 100 09/28/19 23:15 65 18 100 Mechanical Ventilator 30 65 18 30 09/28/19 20:00 61 18 148/75 (99) 100 09/28/19 20:00 60 09/28/19 20:00 60 18 100 Mechanical Ventilator 30 61 18 30 09/28/19 20:00 30 09/28/19 20:00 Mechanical Ventilator Mechanical Ventilator Mechanical Ventilator Mechanical Ventilator 09/28/19 17:16 63 178/88 09/28/19 16:00 Mechanical Ventilator Mechanical Ventilator Mechanical Ventilator Mechanical Ventilator 09/28/19 16:00 98.2 63 18 178/88 (118) 100 09/28/19 16:00 58 09/28/19 16:00 30 09/28/19 15:10 61 18 100 Mechanical Ventilator 30 62 18 30 Intake and Output 09/28/19 09/29/19 19:00 07:00 Intake Total 520 ml 420 ml Output Total 250 ml 200 ml Balance 270 ml 220 ml Intake Free Water 100 ml Tube Feeding 420 ml 420 ml Output Urine Total 250 ml 200 ml # Bowel Movements 4 4 Laboratory Tests 09/29/19 05:00: White Blood Count 10.1, Red Blood Count 2.57L, Hemoglobin 7.8L, Hematocrit 22.6L , Mean Corpuscular Volume 88, Mean Corpuscular Hemoglobin 30.3, Mean Corpuscular Hemoglobin Concent 34.5, Red Cell Distribution Width 15.0H, Platelet Count 338, Mean Platelet Volume 5.1L, Neutrophils (%) (Auto) , Lymphocytes (%) (Auto) , Monocytes (%) (Auto) , Eosinophils (%) (Auto) , Basophils (%) (Auto) , Sodium Level 138, Potassium Level 3.6, Chloride Level 101 , Carbon Dioxide Level 26, Anion Gap 12, Blood Urea Nitrogen 102H, Creatinine 3.1H, Estimat Glomerular Filtration Rate 14.5, Glucose Level 102, Calcium Level 8.5, Total Bilirubin 0.5, Aspartate Amino Transf (AST/SGOT) 255H, Alanine Aminotransferase (ALT/SGPT) 246H, Alkaline Phosphatase 400H, Total Protein 6.7, Albumin 2.0L, Globulin 4.7, Albumin/Globulin Ratio 0.4L 09/29/19 05:34: Phosphorus Level 4.3, Magnesium Level 2.5H Height (Feet): 5 Height (Inches): 4.00 Weight (Pounds): 112 Objective General Appearance: WD/WN, awake. looks around. no distress. thin and frail Neck: supple +trach Cardiovascular: normal rate Respiratory/Chest: rhonchi - bilaterally Abdomen: normal bowel sounds, non tender, soft, no organomegaly Edema: no edema noted Arm (L), no edema noted Arm (R), no edema noted Leg (L), no edema noted Leg (R), no edema noted Pedal (L), no edema noted Pedal (R), no edema noted Generalized Neurologic: disoriented, aphasia Skin: +excoriations Nate Beltran MD Sep 29, 2019 13:36
--- NOTE | 2019-09-29 13:38 | Surgery Progress Note ---
Surgery Progress Note Subjective Procedure Performed 1. tracheostomy 2 removal of left tube thoracostomy Additional Comments no acute events stable Objective Last 24 Hour Vital Signs Date Time Temp Pulse Resp B/P (MAP) Pulse Ox O2 Delivery O2 Flow Rate FiO2 09/29/19 12:00 Mechanical Ventilator Mechanical Ventilator Mechanical Ventilator Mechanical Ventilator 09/29/19 12:00 97.5 85 14 157/66 (96) 99 09/29/19 12:00 30 09/29/19 12:00 65 09/29/19 11:49 74 18 100 Mechanical Ventilator 30 74 18 30 09/29/19 09:18 73 18 30 09/29/19 09:16 68 152/91 09/29/19 08:00 Mechanical Ventilator Mechanical Ventilator Mechanical Ventilator Mechanical Ventilator 09/29/19 08:00 30 09/29/19 08:00 98.1 68 18 152/91 (111) 96 09/29/19 07:45 53 25 95 Mechanical Ventilator 30 66 20 30 09/29/19 07:44 78 09/29/19 04:42 62 18 30 09/29/19 04:00 30 09/29/19 04:00 Mechanical Ventilator Mechanical Ventilator Mechanical Ventilator Mechanical Ventilator 09/29/19 04:00 97.2 69 18 154/76 (102) 100 09/29/19 04:00 69 09/29/19 03:44 64 18 100 Mechanical Ventilator 30 63 18 30 09/29/19 00:00 Mechanical Ventilator Mechanical Ventilator Mechanical Ventilator Mechanical Ventilator 09/29/19 00:00 61 09/29/19 00:00 97.5 61 18 148/75 (99) 100 09/28/19 23:15 65 18 100 Mechanical Ventilator 30 65 18 30 09/28/19 20:00 61 18 148/75 (99) 100 09/28/19 20:00 60 09/28/19 20:00 60 18 100 Mechanical Ventilator 30 61 18 30 09/28/19 20:00 30 09/28/19 20:00 Mechanical Ventilator Mechanical Ventilator Mechanical Ventilator Mechanical Ventilator 09/28/19 17:16 63 178/88 09/28/19 16:00 Mechanical Ventilator Mechanical Ventilator Mechanical Ventilator Mechanical Ventilator 09/28/19 16:00 98.2 63 18 178/88 (118) 100 09/28/19 16:00 58 09/28/19 16:00 30 09/28/19 15:10 61 18 100 Mechanical Ventilator 30 62 18 30 I&O Intake and Output 09/28/19 09/29/19 19:00 07:00 Intake Total 520 ml 420 ml Output Total 250 ml 200 ml Balance 270 ml 220 ml Intake Free Water 100 ml Tube Feeding 420 ml 420 ml Output Urine Total 250 ml 200 ml # Bowel Movements 4 4 Dressing: dry Wound: clean Cardiovascular: RSR Respiratory: decreased breath sounds Abdomen: soft, non-tender, present bowel sounds Extremities: no edema, no tenderness, no cyanosis Laboratory Tests Test 09/29/19 05:00 09/29/19 05:34 White Blood Count 10.1 K/UL (4.8-10.8) Red Blood Count 2.57 M/UL (4.20-5.40) L Hemoglobin 7.8 G/DL (12.0-16.0) L Hematocrit 22.6 % (37.0-47.0) L Mean Corpuscular Volume 88 FL (80-99) Mean Corpuscular Hemoglobin 30.3 PG (27.0-31.0) Mean Corpuscular Hemoglobin Concent 34.5 G/DL (32.0-36.0) Red Cell Distribution Width 15.0 % (11.6-14.8) H Platelet Count 338 K/UL (150-450) Mean Platelet Volume 5.1 FL (6.5-10.1) L Neutrophils (%) (Auto) % (45.0-75.0) Lymphocytes (%) (Auto) % (20.0-45.0) Monocytes (%) (Auto) % (1.0-10.0) Eosinophils (%) (Auto) % (0.0-3.0) Basophils (%) (Auto) % (0.0-2.0) Sodium Level 138 MMOL/L (136-145) Potassium Level 3.6 MMOL/L (3.5-5.1) Chloride Level 101 MMOL/L (98-107) Carbon Dioxide Level 26 MMOL/L (21-32) Anion Gap 12 mmol/L (5-15) Blood Urea Nitrogen 102 mg/dL (7-18) H Creatinine 3.1 MG/DL (0.55-1.30) H Estimat Glomerular Filtration Rate 14.5 mL/min (>60) Glucose Level 102 MG/DL (74-106) Calcium Level 8.5 MG/DL (8.5-10.1) Total Bilirubin 0.5 MG/DL (0.2-1.0) Aspartate Amino Transf (AST/SGOT) 255 U/L (15-37) H Alanine Aminotransferase (ALT/SGPT) 246 U/L (12-78) H Alkaline Phosphatase 400 U/L (46-116) H Total Protein 6.7 G/DL (6.4-8.2) Albumin 2.0 G/DL (3.4-5.0) L Globulin 4.7 g/dL Albumin/Globulin Ratio 0.4 (1.0-2.7) L Phosphorus Level 4.3 MG/DL (2.5-4.9) Magnesium Level 2.5 MG/DL (1.8-2.4) H Assessment Post-op Diagnosis same Plan Problems: (1) Malnutrition Assessment & Plan: DAILY ESTIMATED NEEDS: Needs based on ESRD+ HD, underweight, wound/ 39.5kg 35-40 kcals/kg 6798-8726 total kcals 1.25-1.8 g protein/kg 49-71 g total protein 20-22 mL/kg 790-869 total fluid mLs NUTRITION DIAGNOSIS: * Increased kcal and protein needs r/t underweight status, HD needs, wuond healing as evidenced by pt is underweight per guidelines, ESRD, on HD, admitted non-blanching erythema wounds @ BL heels and sacrum * Swallowing difficulty R/T dysphagia as evidenced by [employer] recommends temporary nonoral feeding at this time, s/p NGT insertion, on NGT feeding-> now s/p self removal, NPO. CURRENT TF:NPO PO DIET RECOMMENDATIONS: WHEN SAFE FOR ORAL DIET -> renal/ texture per [employer] ENTERAL NUTRITION RECOMMENDATIONS: W/ GI access: Nepro @ 35ml/hr x 22 hrs to provide 770ml, 1386kcal, 62g prot, 560ml free water * W/ GI access, resume TF on Nepro * Initiate Nepro @ 15ml/hr x 6 hrs, advance 10ml q 4-6 hrs as tolerated to goal rate. * Hold 1 hour before and after Synthroid med * HOB over 30 degrees/ water flush per MD. ADDITIONAL RECOMMENDATIONS: 1) Calibrated bed scale wt for accurate CBW -> daily wt monitoring Per HD record: dry wt on 07/30=39.5kg (87lbs) 2) Wound care: (W/ GI access) add Nephorivte x 1 + Balta BID 3) Monitor NPO status: without GI access at this time, s/p pulling out NGT 4) Monitor for hypoglycemia while NPO 5) Monitor for continuity of HD (2) Septic arthritis Assessment & Plan: Pt presented on admission with generalized scaly rash . pt noted to be restless and scratching at skin. Bleeding from oral mucosa noted. Joint deformity noted to R shoulder. Surgical incision approximated with 11 sutures. Erythema but no exudate,or elevation in skin temp at site of incision. Historical incision R hip that is tunneled.Small amt seropurulent exudate noted. Periwound is erythematous,but no elevation in skin temp noted. No odor noted. Non-blanching erythema noted to sacrum. Perianal area is erythematous and excoriated. L heel is boggy with non-blanching erythema. R heel is soft with non-blanching erythema. No evidence of skin breakdown to all other bony prominences. Tx.plan: Cover R shoulder with Drsg and change daily and prn. Cleanse R hip wound with Saline. Apply Therahoney.Apply Cavilon Skin Barrier periwound. Cover with Optifoam drsg. Change every 3 days and prn. Apply Moisture Barrier Paste to perianal area and buttocks. Cover Sacrum with Optifoam drsg. Change every 3 days and prn. Apply Cavilon Skin Barrier to both heels. Cover each heel with Optifoam drsg. Change every 7 days and prn. APM/ELVIA Mattress overlay. Reposition at least every 2hours or as tolerated. Off-load heels with pillow. HD cath necessary HD as renal likely will need intubation 19 x 11 x 11 mm hypoechoic area in the liver adjacent to the gallbladder fossa. Although location is typical for area of focal sparing in a fatty liver, there are no findings to indicate fatty liver and this is a new finding since fairly recent previous exam. Therefore the possibility of a process such as small abscess should be considered. Atrophic echogenic kidneys Negative for gallstones or dilated bile ducts (3) Wound, open, hip or thigh with complication Assessment & Plan: slow healing will need nutritional optimization difficult ng tube peg when stable sutures removed from right shoulder comfortable wean vent may need trach (4) Abscess of right hip (5) possible septic arthritis (6) Renal failure (ARF), acute on chronic Assessment & Plan: cont HD will need tunneled cath placement okay to use fem line for now but will need change soon. line monitored and clean dressings going well (7) Pneumonia Assessment & Plan: intubated on vent support not tolerating weaning may need trach hemothorax likely after thoracentesis Chest CT noted Left chest tube placed With plan for trach chest tube can be considered but overall prognosis is very poor s/p trach left chest tub eout cxr noted and okay downgrade left pleural effusion dressings saturated will need to monitor. may need another chest tube as may not heal well on left side Anasarca, with as mentioned above diffuse edema of the soft tissues, trace ascites, and bilateral pleural effusions No hepatic abnormality to correlate with suspected small pericholecystic lesion in the liver described on recent sonogram. The lesion may be occult on noncontrast CT, may have been artifactual or may have resolved in the interim. Consider repeat sonography in a few days to assess progression No definite acute abdominal process otherwise Improved but still sizable left pleural effusion with minimal residual hemoperitoneum since prior CT scan of 09/01/2019. There is near complete atelectasis of the left lower lobe. There is a small right pleural effusion with atelectatic changes of the right lower lobe and right perihilar dense consolidation. These appear improved since a prior CT of 09/01/2019 Increased crazy paving type opacity within the right middle lobe since previous August [address], may reflect an area of increasing infiltrate, versus focal edema. There is also some dense consolidation of the perihilar right lower lobe which is improved since the previous August 31 CT Right groin temporary dialysis catheter in good position Atrophic kidneys, consistent with known history of chronic renal disease L2 compression fracture deformity, and advanced degenerative changes of the L2- L3 disc. Similar to prior study Marroquin catheter hold on repeat chest tube (8) Liver enzyme elevation Assessment & Plan: likely shock liver improving trend Camilo James Sep 29, 2019 13:38
--- NOTE | 2019-09-29 14:25 | General Progress Note ---
Assessment/Plan Problem List: (1) Hypothyroid ICD Codes: E03.9 - Hypothyroidism, unspecified SNOMED: 97548270 (2) ESRD (end stage renal disease) on dialysis ICD Codes: N18.6 - End stage renal disease; Z99.2 - Dependence on renal dialysis SNOMED: 832625038 (3) Hypotension ICD Codes: I95.9 - Hypotension, unspecified SNOMED: 62360991 Qualifiers: Qualified Codes: I95.3 - Hypotension of hemodialysis (4) Pneumonia ICD Codes: J18.9 - Pneumonia, unspecified organism SNOMED: 177467931 Qualifiers: Qualified Codes: J18.9 - Pneumonia, unspecified organism (5) Diabetes mellitus ICD Codes: E11.9 - Type 2 diabetes mellitus without complications SNOMED: 09330561 Status: stable, not improved, unchanged, deteriorating Assessment/Plan: continue Levothyroxine tablet 125 mcg daily - TSH has improved repeat TSH, free 4 next week Subjective ROS Limited/Unobtainable: Yes Allergies: Coded Allergies: VANCOMYCIN (Unverified Allergy, Unknown, 08/02/19) Subjective events noted interval notes reviewed glucose values are stable on vent on TF TSH has improved since last week Objective Last 24 Hour Vital Signs Date Time Temp Pulse Resp B/P (MAP) Pulse Ox O2 Delivery O2 Flow Rate FiO2 09/29/19 12:00 Mechanical Ventilator Mechanical Ventilator Mechanical Ventilator Mechanical Ventilator 09/29/19 12:00 97.5 85 14 157/66 (96) 99 09/29/19 12:00 30 09/29/19 12:00 65 09/29/19 11:49 74 18 100 Mechanical Ventilator 30 74 18 30 09/29/19 09:18 73 18 30 09/29/19 09:16 68 152/91 09/29/19 08:00 Mechanical Ventilator Mechanical Ventilator Mechanical Ventilator Mechanical Ventilator 09/29/19 08:00 30 09/29/19 08:00 98.1 68 18 152/91 (111) 96 09/29/19 07:45 53 25 95 Mechanical Ventilator 30 66 20 30 09/29/19 07:44 78 09/29/19 04:42 62 18 30 09/29/19 04:00 30 09/29/19 04:00 Mechanical Ventilator Mechanical Ventilator Mechanical Ventilator Mechanical Ventilator 09/29/19 04:00 97.2 69 18 154/76 (102) 100 09/29/19 04:00 69 09/29/19 03:44 64 18 100 Mechanical Ventilator 30 63 18 30 09/29/19 00:00 Mechanical Ventilator Mechanical Ventilator Mechanical Ventilator Mechanical Ventilator 09/29/19 00:00 61 09/29/19 00:00 97.5 61 18 148/75 (99) 100 09/28/19 23:15 65 18 100 Mechanical Ventilator 30 65 18 30 09/28/19 20:00 61 18 148/75 (99) 100 09/28/19 20:00 60 09/28/19 20:00 60 18 100 Mechanical Ventilator 30 61 18 30 09/28/19 20:00 30 09/28/19 20:00 Mechanical Ventilator Mechanical Ventilator Mechanical Ventilator Mechanical Ventilator 09/28/19 17:16 63 178/88 09/28/19 16:00 Mechanical Ventilator Mechanical Ventilator Mechanical Ventilator Mechanical Ventilator 09/28/19 16:00 98.2 63 18 178/88 (118) 100 09/28/19 16:00 58 09/28/19 16:00 30 09/28/19 15:10 61 18 100 Mechanical Ventilator 30 62 18 30 Intake and Output 09/28/19 09/29/19 19:00 07:00 Intake Total 520 ml 420 ml Output Total 250 ml 200 ml Balance 270 ml 220 ml Intake Free Water 100 ml Tube Feeding 420 ml 420 ml Output Urine Total 250 ml 200 ml # Bowel Movements 4 4 Laboratory Tests 09/29/19 05:00: White Blood Count 10.1, Red Blood Count 2.57L, Hemoglobin 7.8L, Hematocrit 22.6L , Mean Corpuscular Volume 88, Mean Corpuscular Hemoglobin 30.3, Mean Corpuscular Hemoglobin Concent 34.5, Red Cell Distribution Width 15.0H, Platelet Count 338, Mean Platelet Volume 5.1L, Neutrophils (%) (Auto) , Lymphocytes (%) (Auto) , Monocytes (%) (Auto) , Eosinophils (%) (Auto) , Basophils (%) (Auto) , Sodium Level 138, Potassium Level 3.6, Chloride Level 101 , Carbon Dioxide Level 26, Anion Gap 12, Blood Urea Nitrogen 102H, Creatinine 3.1H, Estimat Glomerular Filtration Rate 14.5, Glucose Level 102, Calcium Level 8.5, Total Bilirubin 0.5, Aspartate Amino Transf (AST/SGOT) 255H, Alanine Aminotransferase (ALT/SGPT) 246H, Alkaline Phosphatase 400H, Total Protein 6.7, Albumin 2.0L, Globulin 4.7, Albumin/Globulin Ratio 0.4L 09/29/19 05:34: Phosphorus Level 4.3, Magnesium Level 2.5H Height (Feet): 5 Height (Inches): 4.00 Weight (Pounds): 112 General Appearance: cachetic Neck: normal alignment Cardiovascular: normal rate Respiratory/Chest: decreased breath sounds Abdomen: normal bowel sounds Pelvis: normal external exam Edema: no edema noted Arm (L), no edema noted Arm (R), no edema noted Leg (L), no edema noted Leg (R), no edema noted Pedal (L), no edema noted Pedal (R), no edema noted Generalized Objective Current Medications Medications (Trade) Dose Ordered Sig/Javier Route PRN Reason Start Time Stop Time Status Last Admin Dose Admin Acetylcysteine (Mucomyst) 100 mg Q4HRT N 08/31/19 19:00 11/29/19 18:59 09/29/19 11:32 Albuterol/ Ipratropium (Albuterol/ Ipratropium) 3 ml Q4HRT N 09/22/19 15:00 12/09/19 14:59 09/29/19 11:32 Amlodipine Besylate (Norvasc) 5 mg BID ORAL 09/25/19 09:00 10/25/19 08:59 09/29/19 09:16 Chlorhexidine Gluconate (Nae-Hex 2%) 1 applic DAILY@1999 TOPIC 09/17/19 20:00 12/16/19 19:59 09/28/19 20:00 Clonidine HCl (Catapres Tab) 0.1 mg Q4H PRN ORAL For High Blood Pressure 09/22/19 21:00 12/21/19 20:59 09/28/19 13:31 Dextrose (Dextrose 50%) 25 ml Q30M PRN IV Hypoglycemia 09/02/19 06:15 12/01/19 06:14 09/04/19 12:11 Dextrose (Dextrose 50%) 50 ml Q30M PRN IV Hypoglycemia 09/02/19 06:15 12/01/19 06:14 Lansoprazole (Prevacid) 30 mg DAILY GT 09/27/19 09:00 10/27/19 08:59 09/29/19 09:16 Levothyroxine Sodium (Synthroid) 125 mcg DAILY@0630 ORAL 09/22/19 06:30 10/22/19 06:29 09/29/19 06:07 Psyllium Hydrophilic Mucilloid (Metamucil) 1 pkt DAILY ORAL 09/22/19 15:00 10/22/19 14:59 09/29/19 09:16 Sevelamer Carbonate (Renvela) 800 mg Q8HR NG 09/25/19 14:00 12/24/19 13:59 09/29/19 06:07 Antonio Jacome MD Sep 29, 2019 14:25
[2019-09-29 15:59] VITALS: BP 156/76
[2019-09-29 20:00] VITALS: BP 151/70
[2019-09-29] MEDS: Dyna-Hex 2% Top Sol 2oz TOPIC SCH (20:27)
[2019-09-30] VITALS: BP 160/84
[2019-09-30] MEDS: Albuterol/Ipratropium 3ml neb HHN SCH ×6 (02:31→22:46)
[2019-09-30 04:00] VITALS: BP 149/59
[2019-09-30] MEDS: Renvela 800mg Pkt NG SCH ×3 (06:17→22:08)
[2019-09-30] MEDS: Levothyroxine 125mcg tab ORAL SCH (06:17)
[2019-09-30 06:57] LABS: HEMOGLOBIN 8.1 G/DL (12.0-16.0); MEAN CORPUSCULAR VOLUME 89 FL (80-99); PLATELET COUNT 345 K/UL (150-450); RED BLOOD COUNT 2.69 M/UL (4.20-5.40); RED CELL DISTRIBUTION WIDTH 14.9 % (11.6-14.8); WHITE BLOOD COUNT 12.4 K/UL (4.8-10.8)
[2019-09-30 07:07] LABS: ALANINE AMINOTRANSFERASE 517 U/L (12-78); ALBUMIN 2.2 G/DL (3.4-5.0); ALBUMIN/GLOBULIN RATIO 0.5 (1.0-2.7); ALKALINE PHOSPHATASE 579 U/L (46-116); ANION GAP 12 mmol/L (5-15); ASPARTATE AMINO TRANSFERASE 676 U/L (15-37); BILIRUBIN,TOTAL 0.5 MG/DL (0.2-1.0); BLOOD UREA NITROGEN 124 mg/dL (7-18); CALCIUM 8.7 MG/DL (8.5-10.1); CARBON DIOXIDE 26 MMOL/L (21-32); CHLORIDE 100 MMOL/L (98-107); CREATININE 3.5 MG/DL (0.55-1.30); POTASSIUM 3.8 MMOL/L (3.5-5.1); SODIUM 138 MMOL/L (136-145)
--- NOTE | 2019-09-30 07:28 | General Progress Note ---
Assessment/Plan Status: stable, not improved, unchanged, deteriorating Assessment/Plan: Assessment - Severe ulcerative esophagitis - mild elevation in LFT, Hepatitis B/C negative --> now sudden rise - ? related to new 1.9 cm mass near GB - ? autoimmune / high ESR - abnormal liver on CT - ? chronic disease / fibrosis - Resp failure - trach - s/p recent Chest tube and removal - Renal failure - aspiration risk --> s/p PEG - anemia - bradycardia - Poor prognosis Recommendations - CT reviewed -? shock liver. Repeat in am>>> improving - check autoimmune markers - pending>>> neg JOLIE - check AFP - GT care - water flushes - elevate HOB - monitor H&H - ppi -check stool ob>>>positive>>> ordered one more patient poor candidate for GI procedures - vent -improving LFTS Subjective ROS Limited/Unobtainable: No Allergies: Coded Allergies: VANCOMYCIN (Unverified Allergy, Unknown, 08/02/19) Subjective s/p blood transfusion Objective Last 24 Hour Vital Signs Date Time Temp Pulse Resp B/P (MAP) Pulse Ox O2 Delivery O2 Flow Rate FiO2 09/30/19 04:44 72 18 30 09/30/19 04:00 97.6 77 15 149/59 (89) 100 09/30/19 04:00 30 09/30/19 04:00 Mechanical Ventilator 09/30/19 03:49 78 09/30/19 02:32 74 18 100 Mechanical Ventilator 30 78 18 30 09/30/19 00:00 Mechanical Ventilator 09/30/19 00:00 77 09/30/19 00:00 98.1 77 18 160/84 (109) 100 09/29/19 22:58 75 18 100 Mechanical Ventilator 30 75 18 30 09/29/19 20:12 74 18 100 Mechanical Ventilator 30 77 18 30 09/29/19 20:00 30 09/29/19 20:00 97.5 80 18 151/70 (97) 100 09/29/19 20:00 Mechanical Ventilator 09/29/19 20:00 75 09/29/19 17:51 76 156/76 09/29/19 17:05 76 18 30 09/29/19 16:00 79 09/29/19 16:00 Mechanical Ventilator 09/29/19 16:00 30 09/29/19 15:59 97.0 76 18 156/76 (102) 100 09/29/19 12:00 Mechanical Ventilator Mechanical Ventilator Mechanical Ventilator Mechanical Ventilator 09/29/19 12:00 97.5 85 14 157/66 (96) 99 09/29/19 12:00 30 09/29/19 12:00 65 09/29/19 11:49 74 18 100 Mechanical Ventilator 30 74 18 30 09/29/19 09:18 73 18 30 09/29/19 09:16 68 152/91 09/29/19 08:00 Mechanical Ventilator Mechanical Ventilator Mechanical Ventilator Mechanical Ventilator 09/29/19 08:00 30 09/29/19 08:00 98.1 68 18 152/91 (111) 96 09/29/19 07:45 53 25 95 Mechanical Ventilator 30 66 20 30 09/29/19 07:44 78 Intake and Output 09/29/19 09/30/19 19:00 07:00 Intake Total 520 ml 450 ml Output Total 150 ml 350 ml Balance 370 ml 100 ml Intake Free Water 100 ml 100 ml Tube Feeding 420 ml 350 ml Output Urine Total 150 ml 350 ml # Bowel Movements 3 1 Laboratory Tests 09/29/19 18:15: Stool Occult Blood [Pending] 09/30/19 06:05: White Blood Count 12.4H, Red Blood Count 2.69L, Hemoglobin 8.1L, Hematocrit 24.0L, Mean Corpuscular Volume 89, Mean Corpuscular Hemoglobin 30.1, Mean Corpuscular Hemoglobin Concent 33.8, Red Cell Distribution Width 14.9H, Platelet Count 345, Mean Platelet Volume 4.8L, Neutrophils (%) (Auto) , Lymphocytes (%) (Auto) , Monocytes (%) (Auto) , Eosinophils (%) (Auto) , Basophils (%) (Auto) , Neutrophils % (Manual) [Pending], Lymphocytes % (Manual) [Pending], Platelet Estimate [Pending], Platelet Morphology [Pending], Sodium Level [Pending], Potassium Level [Pending], Chloride Level [Pending], Carbon Dioxide Level [Pending], Blood Urea Nitrogen [Pending], Creatinine [Pending], Estimat Glomerular Filtration Rate [Pending], Glucose Level [Pending], Calcium Level [Pending], Total Bilirubin [Pending], Aspartate Amino Transf (AST/SGOT) [ Pending], Alanine Aminotransferase (ALT/SGPT) [Pending], Alkaline Phosphatase [ Pending], Total Protein [Pending], Albumin [Pending], Globulin [Pending] Height (Feet): 5 Height (Inches): 4.00 Weight (Pounds): 112 General Appearance: alert EENT: normal ENT inspection Neck: supple Cardiovascular: normal rate Respiratory/Chest: decreased breath sounds Abdomen: normal bowel sounds, non tender, soft Extremities: non-tender Kenny Rudolph MD Sep 30, 2019 07:28
[2019-09-30 08:00] VITALS: BP_SYST 144; BP_SYST 99; BP_DIAS 60; BP_DIAS 81
[2019-09-30] MEDS: Metamucil Pkt ORAL SCH (08:39)
--- NOTE | 2019-09-30 08:44 | Progress Note ---
DATE: 09/29/2019 CARDIOLOGY PROGRESS NOTE SUBJECTIVE: On ventilator support via trach. Monitored rhythm with sinus and rare ectopics. No bradycardia. PHYSICAL EXAMINATION: VITAL SIGNS: Blood pressure 151/70, pulse 80, respirations 18. LUNGS: Few rhonchi. CARDIAC: Regular rhythm and rate. Normal S1, S2. ABDOMEN: Soft. G-tube intact. EXTREMITIES: Trace edema. LABORATORY DATA: Hemoglobin 7.8, white count 10, potassium 3.6, BUN 102, creatinine 3.1, and magnesium 2.5. AST and ALT has decreased to 255 and 246 respectively. IMPRESSION: 1. Recovering transaminitis, off hydralazine. 2. End-stage renal disease. 3. Ventilator-dependent respiratory failure with tracheostomy. 4. Sinus node disease with no bradycardia at this time. 5. Hypothyroidism, on replacement therapy. 6. Acute and chronic diastolic congestive heart failure. PLAN: 1. Remain off hydralazine. 2. Monitor liver function studies. 3. Ventilator support with weaning efforts. 4. Hemodialysis with additional ultrafiltration. 5. Thyroid replacement with feedings to be held prior to dosing for improved absorption. Abel Stubbs M.D. DR: SAVANNA JOB#: [id number] CC:
--- NOTE | 2019-09-30 10:10 | Nephrology Progress Note ---
Assessment/Plan Problem List: (1) Liver enzyme elevation Assessment: Acute (2) ESRD (end stage renal disease) on dialysis (3) Malnutrition (4) Anemia in CKD (chronic kidney disease) (5) Hypotension (6) Thrombocytopenia (7) Sepsis Assessment: klebsiella in blood Assessment -Early sepsis with shock. -Healthcare-associated pneumonia. -Severe protein-calorie malnutrition. -Thrombocytopenia. - End-stage renal disease. - History of hypertension. - Bradycardia. - HypoThyroid Plan Labs reviewed Liver enzymes rising, hepatitis panel ordered today's labs indicates lowering of liver enzymes Tracheostomy September 07 Last dialysis September 26 Chest tube on the left side was put in on September 01 was discontinued September 07 Patient transfused 3 units of packed RBCs for low hemoglobin Remains full code Blood pressure fluctuating, will start hydralazine via NG tube for blood pressure Magnesium and potassium supplement intravenously as needed Patient underwent PEG placement August 16 patient remains intubated on ventilator Discussed with RN Aim to wean from ventilator or consider tracheostomy Permacath was removed on August 12 Dialysis 08/11 Transfusion as needed Patient had hematemesis meds IV as possible Surveillance blood cultures tomorrow Plan to put the permacath back in on Thursday if cultures are negative keep BP and BS in check Inflammatory markers per orders Subjective ROS Limited/Unobtainable: Yes Objective Objective Last 24 Hour Vital Signs Date Time Temp Pulse Resp B/P (MAP) Pulse Ox O2 Delivery O2 Flow Rate FiO2 09/30/19 08:39 77 144/81 09/30/19 08:00 30 09/30/19 08:00 Mechanical Ventilator 09/30/19 08:00 97.2 77 20 144/81 (102) 99 09/30/19 07:55 77 18 100 Mechanical Ventilator 30 78 18 30 09/30/19 07:44 81 09/30/19 04:44 72 18 30 09/30/19 04:00 97.6 77 15 149/59 (89) 100 09/30/19 04:00 30 09/30/19 04:00 Mechanical Ventilator 09/30/19 03:49 78 09/30/19 02:32 74 18 100 Mechanical Ventilator 30 78 18 30 09/30/19 00:00 Mechanical Ventilator 09/30/19 00:00 77 09/30/19 00:00 98.1 77 18 160/84 (109) 100 09/29/19 22:58 75 18 100 Mechanical Ventilator 30 75 18 30 09/29/19 20:12 74 18 100 Mechanical Ventilator 30 77 18 30 09/29/19 20:00 30 09/29/19 20:00 97.5 80 18 151/70 (97) 100 09/29/19 20:00 Mechanical Ventilator 09/29/19 20:00 75 09/29/19 17:51 76 156/76 09/29/19 17:05 76 18 30 09/29/19 16:00 79 09/29/19 16:00 Mechanical Ventilator 09/29/19 16:00 30 09/29/19 15:59 97.0 76 18 156/76 (102) 100 09/29/19 12:00 Mechanical Ventilator Mechanical Ventilator Mechanical Ventilator Mechanical Ventilator 09/29/19 12:00 97.5 85 14 157/66 (96) 99 09/29/19 12:00 30 09/29/19 12:00 65 09/29/19 11:49 74 18 100 Mechanical Ventilator 30 74 18 30 Intake and Output 09/29/19 09/30/19 19:00 07:00 Intake Total 520 ml 450 ml Output Total 150 ml 350 ml Balance 370 ml 100 ml Intake Free Water 100 ml 100 ml Tube Feeding 420 ml 350 ml Output Urine Total 150 ml 350 ml # Bowel Movements 3 1 Current Medications Medications (Trade) Dose Ordered Sig/Javier Route PRN Reason Start Time Stop Time Status Last Admin Dose Admin Acetylcysteine (Mucomyst) 100 mg Q4HRT [facility] 08/31/19 19:00 11/29/19 18:59 09/30/19 07:40 Albuterol/ Ipratropium (Albuterol/ Ipratropium) 3 ml Q4HRT [facility] 09/22/19 15:00 12/09/19 14:59 09/30/19 07:40 Amlodipine Besylate (Norvasc) 5 mg BID ORAL 09/25/19 09:00 10/25/19 08:59 09/30/19 08:39 Chlorhexidine Gluconate (Nae-Hex 2%) 1 applic DAILY@1999 TOPIC 09/17/19 20:00 12/16/19 19:59 09/29/19 20:27 Clonidine HCl (Catapres Tab) 0.1 mg Q4H PRN ORAL For High Blood Pressure 09/22/19 21:00 12/21/19 20:59 09/28/19 13:31 Dextrose (Dextrose 50%) 25 ml Q30M PRN IV Hypoglycemia 09/02/19 06:15 12/01/19 06:14 09/04/19 12:11 Dextrose (Dextrose 50%) 50 ml Q30M PRN IV Hypoglycemia 09/02/19 06:15 12/01/19 06:14 Lansoprazole (Prevacid) 30 mg DAILY GT 09/27/19 09:00 10/27/19 08:59 09/30/19 08:39 Levothyroxine Sodium (Synthroid) 125 mcg DAILY@0630 ORAL 09/22/19 06:30 10/22/19 06:29 09/30/19 06:17 Psyllium Hydrophilic Mucilloid (Metamucil) 1 pkt DAILY ORAL 09/22/19 15:00 10/22/19 14:59 09/30/19 08:39 Sevelamer Carbonate (Renvela) 800 mg Q8HR NG 09/25/19 14:00 12/24/19 13:59 09/30/19 06:17 Laboratory Tests 09/29/19 18:15: Stool Occult Blood Negative 09/30/19 06:05: White Blood Count 12.4H, Red Blood Count 2.69L, Hemoglobin 8.1L, Hematocrit 24.0L, Mean Corpuscular Volume 89, Mean Corpuscular Hemoglobin 30.1, Mean Corpuscular Hemoglobin Concent 33.8, Red Cell Distribution Width 14.9H, Platelet Count 345, Mean Platelet Volume 4.8L, Neutrophils (%) (Auto) , Lymphocytes (%) (Auto) , Monocytes (%) (Auto) , Eosinophils (%) (Auto) , Basophils (%) (Auto) , Neutrophils % (Manual) [Pending], Lymphocytes % (Manual) [Pending], Platelet Estimate [Pending], Platelet Morphology [Pending], Sodium Level 138, Potassium Level 3.8, Chloride Level 100, Carbon Dioxide Level 26, Anion Gap 12, Blood Urea Nitrogen 124H, Creatinine 3.5H, Estimat Glomerular Filtration Rate 12.6, Glucose Level 139H, Calcium Level 8.7, Total Bilirubin 0.5 , Aspartate Amino Transf (AST/SGOT) 676H, Alanine Aminotransferase (ALT/SGPT) 517H, Alkaline Phosphatase 579H, Total Protein 6.5, Albumin 2.2L, Globulin 4.3, Albumin/Globulin Ratio 0.5L Height (Feet): 5 Height (Inches): 4.00 Weight (Pounds): 112 General Appearance: no apparent distress EENT: other - Trached and vent Cardiovascular: normal rate Respiratory/Chest: decreased breath sounds Abdomen: other - PEG Objective no change William Blackwood MD Sep 30, 2019 10:10
--- NOTE | 2019-09-30 10:43 | Critical Care Progress Note ---
Assessment/Plan Assessment/Plan respiratory failure hypoxemia chronic renal failure toxic met encephalopathy severe protein calorie malnutrition cachexia left lung whiteout/collapse, anemia pulmonary edema + pleural effusion s/p CT placement and removal s/p trach hypernatremia PLAN trach care as is await repeat imaging for further intervention care noted and reviewed monitor for fluid retention reviewed care and continue to monitor weaning unable renal follow up and dialysis prognosis poor overall for change keep negative and monitor osmotic pressures fully dependent for now close follow up discussed elevated head and monitor ROM watch fluid status and keep negative nutrition and monitor residuals doubt any significant improvement off load as able and monitor skin exam ROM as able and monitor contractures prognosis poor for recovery will need LTAC impression, plan, and exam edited and reviewed in detail care discussed with outbound sales specialist - Subjective Interval Events: care noted and reviewed no distress on vent poor LOC ROS Limited/Unobtainable: Yes Condition: unchanged EKG Rhythm: Sinus Rhythm Residuals: minimal Tube Feeding Tolerated: yes I&O: Intake and Output 09/29/19 09/30/19 19:00 07:00 Intake Total 520 ml 450 ml Output Total 150 ml 350 ml Balance 370 ml 100 ml Intake Free Water 100 ml 100 ml Tube Feeding 420 ml 350 ml Output Urine Total 150 ml 350 ml # Bowel Movements 3 1 Critical Care - Objective ET-Tube: 7.0 ET Position: 19 Last 24 Hour Vital Signs Date Time Temp Pulse Resp B/P (MAP) Pulse Ox O2 Delivery O2 Flow Rate FiO2 09/30/19 08:39 77 144/81 09/30/19 08:00 30 09/30/19 08:00 Mechanical Ventilator 09/30/19 08:00 97.2 77 20 144/81 (102) 99 09/30/19 07:55 77 18 100 Mechanical Ventilator 30 78 18 30 09/30/19 07:44 81 09/30/19 04:44 72 18 30 09/30/19 04:00 97.6 77 15 149/59 (89) 100 09/30/19 04:00 30 09/30/19 04:00 Mechanical Ventilator 09/30/19 03:49 78 09/30/19 02:32 74 18 100 Mechanical Ventilator 30 78 18 30 09/30/19 00:00 Mechanical Ventilator 09/30/19 00:00 77 09/30/19 00:00 98.1 77 18 160/84 (109) 100 09/29/19 22:58 75 18 100 Mechanical Ventilator 30 75 18 30 09/29/19 20:12 74 18 100 Mechanical Ventilator 30 77 18 30 09/29/19 20:00 30 09/29/19 20:00 97.5 80 18 151/70 (97) 100 09/29/19 20:00 Mechanical Ventilator 09/29/19 20:00 75 09/29/19 17:51 76 156/76 09/29/19 17:05 76 18 30 09/29/19 16:00 79 09/29/19 16:00 Mechanical Ventilator 09/29/19 16:00 30 09/29/19 15:59 97.0 76 18 156/76 (102) 100 09/29/19 12:00 Mechanical Ventilator Mechanical Ventilator Mechanical Ventilator Mechanical Ventilator 09/29/19 12:00 97.5 85 14 157/66 (96) 99 09/29/19 12:00 30 09/29/19 12:00 65 09/29/19 11:49 74 18 100 Mechanical Ventilator 30 74 18 30 Labs: Laboratory Tests Test 09/29/19 18:15 09/30/19 06:05 Stool Occult Blood Negative (NEGATIVE) White Blood Count 12.4 K/UL (4.8-10.8) H Red Blood Count 2.69 M/UL (4.20-5.40) L Hemoglobin 8.1 G/DL (12.0-16.0) L Hematocrit 24.0 % (37.0-47.0) L Mean Corpuscular Volume 89 FL (80-99) Mean Corpuscular Hemoglobin 30.1 PG (27.0-31.0) Mean Corpuscular Hemoglobin Concent 33.8 G/DL (32.0-36.0) Red Cell Distribution Width 14.9 % (11.6-14.8) H Platelet Count 345 K/UL (150-450) Mean Platelet Volume 4.8 FL (6.5-10.1) L Neutrophils (%) (Auto) % (45.0-75.0) Lymphocytes (%) (Auto) % (20.0-45.0) Monocytes (%) (Auto) % (1.0-10.0) Eosinophils (%) (Auto) % (0.0-3.0) Basophils (%) (Auto) % (0.0-2.0) Differential Total Cells Counted 100 Neutrophils % (Manual) 73 % (45-75) Lymphocytes % (Manual) 23 % (20-45) Monocytes % (Manual) 2 % (1-10) Eosinophils % (Manual) 2 % (0-3) Basophils % (Manual) 0 % (0-2) Band Neutrophils 0 % (0-8) Platelet Estimate Adequate Platelet Morphology Normal Anisocytosis 1+ Sodium Level 138 MMOL/L (136-145) Potassium Level 3.8 MMOL/L (3.5-5.1) Chloride Level 100 MMOL/L (98-107) Carbon Dioxide Level 26 MMOL/L (21-32) Anion Gap 12 mmol/L (5-15) Blood Urea Nitrogen 124 mg/dL (7-18) H Creatinine 3.5 MG/DL (0.55-1.30) H Estimat Glomerular Filtration Rate 12.6 mL/min (>60) Glucose Level 139 MG/DL (74-106) H Calcium Level 8.7 MG/DL (8.5-10.1) Total Bilirubin 0.5 MG/DL (0.2-1.0) Aspartate Amino Transf (AST/SGOT) 676 U/L (15-37) H Alanine Aminotransferase (ALT/SGPT) 517 U/L (12-78) H Alkaline Phosphatase 579 U/L (46-116) H Total Protein 6.5 G/DL (6.4-8.2) Albumin 2.2 G/DL (3.4-5.0) L Globulin 4.3 g/dL Albumin/Globulin Ratio 0.5 (1.0-2.7) L Objective: WDWN NAD trach in place reduced breath sounds without rhonchi or wheeze [id number] without MRG NABS nontender no HSM no CCE contractures feeding tube in place no distention reduced LOC and weak nonfocal cachectic reviewed and edited Accucheck: 89 Malcolm Cruz MD Sep 30, 2019 10:43
--- NOTE | 2019-09-30 11:20 | Infectious Diseases Prog Note ---
Assessment/Plan Assessment/Plan antibiotics : none A 1. jarad albicans fungemia s/p rx 2. right shoulder septic arthritis with staph aureus s/p rx 3. pleural effusion 4. thrombocytopenia resolved 7. diabetes mellitus 8. hypertension 9. respiratory failure P 1. observe off antibiotics Subjective ROS Limited/Unobtainable: Yes Allergies: Coded Allergies: VANCOMYCIN (Unverified Allergy, Unknown, 08/02/19) Objective Vital Signs Last 24 Hour Vital Signs Date Time Temp Pulse Resp B/P (MAP) Pulse Ox O2 Delivery O2 Flow Rate FiO2 09/30/19 08:39 77 144/81 09/30/19 08:00 30 09/30/19 08:00 Mechanical Ventilator 09/30/19 08:00 97.2 77 20 144/81 (102) 99 09/30/19 07:55 77 18 100 Mechanical Ventilator 30 78 18 30 09/30/19 07:44 81 09/30/19 04:44 72 18 30 09/30/19 04:00 97.6 77 15 149/59 (89) 100 09/30/19 04:00 30 09/30/19 04:00 Mechanical Ventilator 09/30/19 03:49 78 09/30/19 02:32 74 18 100 Mechanical Ventilator 30 78 18 30 09/30/19 00:00 Mechanical Ventilator 09/30/19 00:00 77 09/30/19 00:00 98.1 77 18 160/84 (109) 100 09/29/19 22:58 75 18 100 Mechanical Ventilator 30 75 18 30 09/29/19 20:12 74 18 100 Mechanical Ventilator 30 77 18 30 09/29/19 20:00 30 09/29/19 20:00 97.5 80 18 151/70 (97) 100 09/29/19 20:00 Mechanical Ventilator 09/29/19 20:00 75 09/29/19 17:51 76 156/76 09/29/19 17:05 76 18 30 09/29/19 16:00 79 09/29/19 16:00 Mechanical Ventilator 09/29/19 16:00 30 09/29/19 15:59 97.0 76 18 156/76 (102) 100 09/29/19 12:00 Mechanical Ventilator Mechanical Ventilator Mechanical Ventilator Mechanical Ventilator 09/29/19 12:00 97.5 85 14 157/66 (96) 99 09/29/19 12:00 30 09/29/19 12:00 65 09/29/19 11:49 74 18 100 Mechanical Ventilator 30 74 18 30 Height (Feet): 5 Height (Inches): 4.00 Weight (Pounds): 112 HEENT: status post trach Respiratory/Chest: lungs clear Cardiovascular: normal rate, regular rhythm, no gallop/murmur Abdomen: soft, non tender, other - GT Extremities: no edema, other - right groin catheter Laboratory Tests Test 09/29/19 18:15 09/30/19 06:05 Stool Occult Blood Negative (NEGATIVE) White Blood Count 12.4 K/UL (4.8-10.8) H Red Blood Count 2.69 M/UL (4.20-5.40) L Hemoglobin 8.1 G/DL (12.0-16.0) L Hematocrit 24.0 % (37.0-47.0) L Mean Corpuscular Volume 89 FL (80-99) Mean Corpuscular Hemoglobin 30.1 PG (27.0-31.0) Mean Corpuscular Hemoglobin Concent 33.8 G/DL (32.0-36.0) Red Cell Distribution Width 14.9 % (11.6-14.8) H Platelet Count 345 K/UL (150-450) Mean Platelet Volume 4.8 FL (6.5-10.1) L Neutrophils (%) (Auto) % (45.0-75.0) Lymphocytes (%) (Auto) % (20.0-45.0) Monocytes (%) (Auto) % (1.0-10.0) Eosinophils (%) (Auto) % (0.0-3.0) Basophils (%) (Auto) % (0.0-2.0) Differential Total Cells Counted 100 Neutrophils % (Manual) 73 % (45-75) Lymphocytes % (Manual) 23 % (20-45) Monocytes % (Manual) 2 % (1-10) Eosinophils % (Manual) 2 % (0-3) Basophils % (Manual) 0 % (0-2) Band Neutrophils 0 % (0-8) Platelet Estimate Adequate Platelet Morphology Normal Anisocytosis 1+ Sodium Level 138 MMOL/L (136-145) Potassium Level 3.8 MMOL/L (3.5-5.1) Chloride Level 100 MMOL/L (98-107) Carbon Dioxide Level 26 MMOL/L (21-32) Anion Gap 12 mmol/L (5-15) Blood Urea Nitrogen 124 mg/dL (7-18) H Creatinine 3.5 MG/DL (0.55-1.30) H Estimat Glomerular Filtration Rate 12.6 mL/min (>60) Glucose Level 139 MG/DL (74-106) H Calcium Level 8.7 MG/DL (8.5-10.1) Total Bilirubin 0.5 MG/DL (0.2-1.0) Aspartate Amino Transf (AST/SGOT) 676 U/L (15-37) H Alanine Aminotransferase (ALT/SGPT) 517 U/L (12-78) H Alkaline Phosphatase 579 U/L (46-116) H Total Protein 6.5 G/DL (6.4-8.2) Albumin 2.2 G/DL (3.4-5.0) L Globulin 4.3 g/dL Albumin/Globulin Ratio 0.5 (1.0-2.7) L Current Medications Medications (Trade) Dose Ordered Sig/Javeir Route PRN Reason Start Time Stop Time Status Last Admin Dose Admin Acetylcysteine (Mucomyst) 100 mg Q4HRT N 08/31/19 19:00 11/29/19 18:59 09/30/19 11:14 Albuterol/ Ipratropium (Albuterol/ Ipratropium) 3 ml Q4HRT N 09/22/19 15:00 12/09/19 14:59 09/30/19 11:14 Amlodipine Besylate (Norvasc) 5 mg BID ORAL 09/25/19 09:00 10/25/19 08:59 09/30/19 08:39 Chlorhexidine Gluconate (Nae-Hex 2%) 1 applic DAILY@1999 TOPIC 09/17/19 20:00 12/16/19 19:59 09/29/19 20:27 Clonidine HCl (Catapres Tab) 0.1 mg Q4H PRN ORAL For High Blood Pressure 09/22/19 21:00 12/21/19 20:59 09/28/19 13:31 Dextrose (Dextrose 50%) 25 ml Q30M PRN IV Hypoglycemia 09/02/19 06:15 12/01/19 06:14 09/04/19 12:11 Dextrose (Dextrose 50%) 50 ml Q30M PRN IV Hypoglycemia 09/02/19 06:15 12/01/19 06:14 Lansoprazole (Prevacid) 30 mg DAILY GT 09/27/19 09:00 10/27/19 08:59 09/30/19 08:39 Levothyroxine Sodium (Synthroid) 125 mcg DAILY@0630 ORAL 09/22/19 06:30 10/22/19 06:29 09/30/19 06:17 Psyllium Hydrophilic Mucilloid (Metamucil) 1 pkt DAILY ORAL 09/22/19 15:00 10/22/19 14:59 09/30/19 08:39 Sevelamer Carbonate (Renvela) 800 mg Q8HR NG 09/25/19 14:00 12/24/19 13:59 09/30/19 06:17 Melissa Solares MD Sep 30, 2019 11:20
[2019-09-30 12:00] VITALS: BP 169/88
--- NOTE | 2019-09-30 12:58 | General Progress Note ---
Assessment/Plan Problem List: (1) Hypothyroid ICD Codes: E03.9 - Hypothyroidism, unspecified SNOMED: 63183821 (2) ESRD (end stage renal disease) on dialysis ICD Codes: N18.6 - End stage renal disease; Z99.2 - Dependence on renal dialysis SNOMED: 417967603 (3) Hypotension ICD Codes: I95.9 - Hypotension, unspecified SNOMED: 76522153 Qualifiers: Qualified Codes: I95.3 - Hypotension of hemodialysis (4) Pneumonia ICD Codes: J18.9 - Pneumonia, unspecified organism SNOMED: 406291630 Qualifiers: Qualified Codes: J18.9 - Pneumonia, unspecified organism (5) Diabetes mellitus ICD Codes: E11.9 - Type 2 diabetes mellitus without complications SNOMED: 72231144 Status: stable, not improved, unchanged, deteriorating Assessment/Plan: continue Levothyroxine tablet 125 mcg daily - TSH has improved repeat TSH, free 4 next week Subjective ROS Limited/Unobtainable: Yes Allergies: Coded Allergies: VANCOMYCIN (Unverified Allergy, Unknown, 08/02/19) Subjective events noted interval notes reviewed on vent on TF TSH has improved since last week Objective Last 24 Hour Vital Signs Date Time Temp Pulse Resp B/P (MAP) Pulse Ox O2 Delivery O2 Flow Rate FiO2 09/30/19 12:00 97.7 76 18 169/88 (115) 100 09/30/19 12:00 30 09/30/19 12:00 Mechanical Ventilator 09/30/19 11:45 82 09/30/19 11:29 88 18 100 Mechanical Ventilator 30 77 18 30 09/30/19 08:39 77 144/81 09/30/19 08:00 30 09/30/19 08:00 Mechanical Ventilator 09/30/19 08:00 97.2 77 20 144/81 (102) 99 09/30/19 07:55 77 18 100 Mechanical Ventilator 30 78 18 30 09/30/19 07:44 81 09/30/19 04:44 72 18 30 09/30/19 04:00 97.6 77 15 149/59 (89) 100 09/30/19 04:00 30 09/30/19 04:00 Mechanical Ventilator 09/30/19 03:49 78 09/30/19 02:32 74 18 100 Mechanical Ventilator 30 78 18 30 4/17/20 00:00 Mechanical Ventilator 09/30/19 00:00 77 09/30/19 00:00 98.1 77 18 160/84 (109) 100 09/29/19 22:58 75 18 100 Mechanical Ventilator 30 75 18 30 09/29/19 20:12 74 18 100 Mechanical Ventilator 30 77 18 30 09/29/19 20:00 30 09/29/19 20:00 97.5 80 18 151/70 (97) 100 09/29/19 20:00 Mechanical Ventilator 09/29/19 20:00 75 09/29/19 17:51 76 156/76 09/29/19 17:05 76 18 30 09/29/19 16:00 79 09/29/19 16:00 Mechanical Ventilator 09/29/19 16:00 30 09/29/19 15:59 97.0 76 18 156/76 (102) 100 Intake and Output 09/29/19 09/30/19 19:00 07:00 Intake Total 520 ml 450 ml Output Total 150 ml 350 ml Balance 370 ml 100 ml Intake Free Water 100 ml 100 ml Tube Feeding 420 ml 350 ml Output Urine Total 150 ml 350 ml # Bowel Movements 3 1 Laboratory Tests 09/29/19 18:15: Stool Occult Blood Negative 09/30/19 06:05: White Blood Count 12.4H, Red Blood Count 2.69L, Hemoglobin 8.1L, Hematocrit 24.0L, Mean Corpuscular Volume 89, Mean Corpuscular Hemoglobin 30.1, Mean Corpuscular Hemoglobin Concent 33.8, Red Cell Distribution Width 14.9H, Platelet Count 345, Mean Platelet Volume 4.8L, Neutrophils (%) (Auto) , Lymphocytes (%) (Auto) , Monocytes (%) (Auto) , Eosinophils (%) (Auto) , Basophils (%) (Auto) , Differential Total Cells Counted 100, Neutrophils % ( Manual) 73, Lymphocytes % (Manual) 23, Monocytes % (Manual) 2, Eosinophils % ( Manual) 2, Basophils % (Manual) 0, Band Neutrophils 0, Platelet Estimate Adequate, Platelet Morphology Normal, Anisocytosis 1+, Sodium Level 138, Potassium Level 3.8, Chloride Level 100, Carbon Dioxide Level 26, Anion Gap 12, Blood Urea Nitrogen 124H, Creatinine 3.5H, Estimat Glomerular Filtration Rate 12.6, Glucose Level 139H, Calcium Level 8.7, Total Bilirubin 0.5, Aspartate Amino Transf (AST/SGOT) 676H, Alanine Aminotransferase (ALT/SGPT) 517H, Alkaline Phosphatase 579H, Total Protein 6.5, Albumin 2.2L, Globulin 4.3, Albumin/Globulin Ratio 0.5L Height (Feet): 5 Height (Inches): 4.00 Weight (Pounds): 112 General Appearance: cachetic Neck: normal alignment Cardiovascular: normal rate Respiratory/Chest: decreased breath sounds Abdomen: normal bowel sounds Pelvis: normal external exam Objective Current Medications Medications (Trade) Dose Ordered Sig/Javier Route PRN Reason Start Time Stop Time Status Last Admin Dose Admin Acetylcysteine (Mucomyst) 100 mg Q4HRT N 08/31/19 19:00 11/29/19 18:59 09/30/19 11:14 Albuterol/ Ipratropium (Albuterol/ Ipratropium) 3 ml Q4HRT N 09/22/19 15:00 12/09/19 14:59 09/30/19 11:14 Amlodipine Besylate (Norvasc) 5 mg BID ORAL 09/25/19 09:00 10/25/19 08:59 09/30/19 08:39 Chlorhexidine Gluconate (Nae-Hex 2%) 1 applic DAILY@2000 TOPIC 09/17/19 20:00 12/16/19 19:59 09/29/19 20:27 Clonidine HCl (Catapres Tab) 0.1 mg Q4H PRN ORAL For High Blood Pressure 09/22/19 21:00 12/21/19 20:59 09/28/19 13:31 Dextrose (Dextrose 50%) 25 ml Q30M PRN IV Hypoglycemia 09/02/19 06:15 12/01/19 06:14 09/04/19 12:11 Dextrose (Dextrose 50%) 50 ml Q30M PRN IV Hypoglycemia 09/02/19 06:15 12/01/19 06:14 Lansoprazole (Prevacid) 30 mg DAILY GT 09/27/19 09:00 10/27/19 08:59 09/30/19 08:39 Levothyroxine Sodium (Synthroid) 125 mcg DAILY@0630 ORAL 09/22/19 06:30 10/22/19 06:29 09/30/19 06:17 Psyllium Hydrophilic Mucilloid (Metamucil) 1 pkt DAILY ORAL 09/22/19 15:00 10/22/19 14:59 09/30/19 08:39 Sevelamer Carbonate (Renvela) 800 mg Q8HR NG 09/25/19 14:00 12/24/19 13:59 09/30/19 06:17 Antonio Jacome MD Sep 30, 2019 12:58
--- NOTE | 2019-09-30 13:33 | General Progress Note ---
Assessment/Plan Problem List: (1) Failure to thrive (0-17) ICD Codes: R62.51 - Failure to thrive (0-17) SNOMED: 949285451 (2) Hypertensive kidney disease ICD Codes: I12.9 - Hypertensive chronic kidney disease with stage 1 through stage 4 chronic kidney disease, or unspecified chronic kidney disease SNOMED: 01960181 (3) Pneumonia ICD Codes: J18.9 - Pneumonia, unspecified organism SNOMED: 602996806 Qualifiers: Qualified Codes: J18.9 - Pneumonia, unspecified organism (4) ESRD (end stage renal disease) ICD Codes: N18.6 - End stage renal disease SNOMED: 99271749 (5) Septic arthritis ICD Codes: M00.9 - Pyogenic arthritis, unspecified SNOMED: 358476538 (6) Thrombocytopenia ICD Codes: D69.6 - Thrombocytopenia, unspecified SNOMED: 762110042 (7) Hypotension ICD Codes: I95.9 - Hypotension, unspecified SNOMED: 73265046 Qualifiers: Qualified Codes: I95.3 - Hypotension of hemodialysis (8) Malnutrition ICD Codes: E46 - Unspecified protein-calorie malnutrition SNOMED: 98551844 Status: stable, not improved, unchanged, deteriorating Assessment/Plan: Continue vent support. Wean as able. Will discuss with pulmonary if patient could be weaned to trach collar.Suctioning and pulmonary toilet. Continue G-tube feedings. Monitor residuals Continue current blood pressure regimen with close monitoring of blood pressure. Hemodialysis with ultrafiltration per nephrology. Turn every 2 hours and good skin care. monitor labs/lfts monitor h/h may need transfusion dc hydralazine(per GI can cause transaminitis) Discharge planning in progress Subjective ROS Limited/Unobtainable: No Constitutional: Reports: malaise, weakness HEENT: Reports: no symptoms Cardiovascular: Reports: no symptoms Respiratory: Reports: cough, SOB with excertion Gastrointestinal/Abdominal: Reports: difficulty swallowing Genitourinary: Reports: no symptoms Neurologic/Psychiatric: Reports: anxiety, emotional problems Endocrine: Reports: no symptoms Hematologic/Lymphatic: Reports: anemia Allergies: Coded Allergies: VANCOMYCIN (Unverified Allergy, Unknown, 08/02/19) All Systems: reviewed and negative except above Subjective There were no overnight events. Patient remained stable on the ventilator. She occasionally opens her eyes. Tolerating feedings. LFTS up today. no signs of bleeding. no med changes, Objective Last 24 Hour Vital Signs Date Time Temp Pulse Resp B/P (MAP) Pulse Ox O2 Delivery O2 Flow Rate FiO2 09/30/19 13:28 169/88 09/30/19 12:00 97.7 76 18 169/88 (115) 100 09/30/19 12:00 30 09/30/19 12:00 Mechanical Ventilator 09/30/19 11:45 82 09/30/19 11:29 88 18 100 Mechanical Ventilator 30 77 18 30 09/30/19 08:39 77 144/81 09/30/19 08:00 30 09/30/19 08:00 Mechanical Ventilator 09/30/19 08:00 97.2 77 20 144/81 (102) 99 09/30/19 07:55 77 18 100 Mechanical Ventilator 30 78 18 30 09/30/19 07:44 81 09/30/19 04:44 72 18 30 09/30/19 04:00 97.6 77 15 149/59 (89) 100 09/30/19 04:00 30 09/30/19 04:00 Mechanical Ventilator 09/30/19 03:49 78 09/30/19 02:32 74 18 100 Mechanical Ventilator 30 78 18 30 09/30/19 00:00 Mechanical Ventilator 09/30/19 00:00 77 09/30/19 00:00 98.1 77 18 160/84 (109) 100 09/29/19 22:58 75 18 100 Mechanical Ventilator 30 75 18 30 09/29/19 20:12 74 18 100 Mechanical Ventilator 30 77 18 30 09/29/19 20:00 30 09/29/19 20:00 97.5 80 18 151/70 (97) 100 09/29/19 20:00 Mechanical Ventilator 09/29/19 20:00 75 09/29/19 17:51 76 156/76 09/29/19 17:05 76 18 30 09/29/19 16:00 79 09/29/19 16:00 Mechanical Ventilator 09/29/19 16:00 30 09/29/19 15:59 97.0 76 18 156/76 (102) 100 Intake and Output 09/29/19 09/30/19 19:00 07:00 Intake Total 520 ml 450 ml Output Total 150 ml 350 ml Balance 370 ml 100 ml Intake Free Water 100 ml 100 ml Tube Feeding 420 ml 350 ml Output Urine Total 150 ml 350 ml # Bowel Movements 3 1 Laboratory Tests 09/29/19 18:15: Stool Occult Blood Negative 09/30/19 06:05: White Blood Count 12.4H, Red Blood Count 2.69L, Hemoglobin 8.1L, Hematocrit 24.0L, Mean Corpuscular Volume 89, Mean Corpuscular Hemoglobin 30.1, Mean Corpuscular Hemoglobin Concent 33.8, Red Cell Distribution Width 14.9H, Platelet Count 345, Mean Platelet Volume 4.8L, Neutrophils (%) (Auto) , Lymphocytes (%) (Auto) , Monocytes (%) (Auto) , Eosinophils (%) (Auto) , Basophils (%) (Auto) , Differential Total Cells Counted 100, Neutrophils % ( Manual) 73, Lymphocytes % (Manual) 23, Monocytes % (Manual) 2, Eosinophils % ( Manual) 2, Basophils % (Manual) 0, Band Neutrophils 0, Platelet Estimate Adequate, Platelet Morphology Normal, Anisocytosis 1+, Sodium Level 138, Potassium Level 3.8, Chloride Level 100, Carbon Dioxide Level 26, Anion Gap 12, Blood Urea Nitrogen 124H, Creatinine 3.5H, Estimat Glomerular Filtration Rate 12.6, Glucose Level 139H, Calcium Level 8.7, Total Bilirubin 0.5, Aspartate Amino Transf (AST/SGOT) 676H, Alanine Aminotransferase (ALT/SGPT) 517H, Alkaline Phosphatase 579H, Total Protein 6.5, Albumin 2.2L, Globulin 4.3, Albumin/Globulin Ratio 0.5L Height (Feet): 5 Height (Inches): 4.00 Weight (Pounds): 112 Objective General Appearance: WD/WN, awake. looks around. no distress. thin and frail Neck: supple +trach Cardiovascular: normal rate Respiratory/Chest: rhonchi - bilaterally Abdomen: normal bowel sounds, non tender, soft, no organomegaly Edema: no edema noted Arm (L), no edema noted Arm (R), no edema noted Leg (L), no edema noted Leg (R), no edema noted Pedal (L), no edema noted Pedal (R), no edema noted Generalized Neurologic: disoriented, aphasia Skin: +excoriations Nate Beltran MD Sep 30, 2019 13:33
[2019-09-30 16:00] VITALS: BP 149/81
--- NOTE | 2019-09-30 17:56 | Hematology/Onc Progress Note ---
Assessment/Plan Assessment/Plan # Thrombocytopenia ow THROMBOCYTOSIS - potential causes multifactorial, evaluate liver and viral etiologies to begin, in this case due to sepsis with septic shock also with cirrhosis and liver disease --> Hep panel and HIV ordered --> neg --> US abd to evaluate for cirrhosis and hsm ordered --> reviewed --> Peripheral smear ordered to evaluate for blasts /schistocytes --> none noted --> abx and other meds have been reviewed --> ok for ppx if plt >50k w/ either heparin or lovenox --> Transfuse if Plt < 20k and fever, or if Plt < 10k without fever --> okay for permacath change once plt better--> for 08/14 --> plt trend: 43-->83-->237k-->292-->341-->315-->388 -->444-->530-->252k-->344- >529->525k # Anemia of chronic disease due to underlying chronic medical issues, multifactorial v Gi bleed --> Anemia workup has been ordered, rule out gi bleed --> No evidence of hemolysis is noted, peripheral smear has been reviewed. --> Hgb goal >7. Transfuse prn. --> Epogen has been started --> HOLD OFF IRON ferritin is >1000 --> Medications have been reviewed --> low threshold for gi evaluation in case has occult + --> hgb 9-->6.7-->9.2 -->10.5-->10.6 -->10.7-->10-->10.5-->9.8-->10.4-->9.5--> 3.6-->9.6-->9.7-->10-->10.3-->11->9.9->8.3->8.7-->8.1 --> blood tx: 08/11, 08/31 --> CT Chest r/o hemothorax --> does show confirmation of a large left hemothorax. Complete atelectasis of the left lower lobe and partial left upper lobe atelectasis demonstrated. Mild rightward shift of the heart and mediastinum. --> stool ob negative # Sepsis with shock. --> abx as per id, recs noted--> off abx --> pressors as needed # Healthcare-associated pneumonia. --> recs reviewed --> abx: jung/micafungin-->jung-->off --> 08/24 us chest: moderate left pleural effusion # Severe protein-calorie malnutrition. --> nutritional support # End-stage renal disease --> had as renal hd --> with permacath # History of hypertension. --> per cards, now with Bradycardia. # Resp failure s/p vent/trach # HypoThyroid # Ngt feedings # Dvt ppx scd's The timing of this note does not necessarily reflect the time of the patient was seen. Greatly appreciate consultation. Subjective Allergies: Coded Allergies: VANCOMYCIN (Unverified Allergy, Unknown, 08/02/19) Subjective 08/11: no bleeding or chills, labs reviewed, no major bleeding, plt less than 50k 08/12: icu, s/p blood, hgb improved to 9.2, 08/14: icu, pending consent for thora and permacath, labs reviewed 08/15: new permacath placed, no bleeding, for hd, plt much improved, started lovenox sq 08/16: ett to be adjusted, bp on high end, micafungin started, possible bronch 08/17: weaning as per pulm, no events otherwise, labs noted 08/18: no events no bleeding, remains confused on vent, for hd 08/20: icu, failed to wean, labs reviewed, jung 08/21: resting in bed, no overnight events, labs reviewed 08/22: awake, confused, restraints, no overnight events 08/23: no events, no bleeding, on ppi bid 08/24: icu, failed to wean, labs reviewed 08/25: no overnight events, us chest, restraints, afebrile 08/26 difficult in weaning, nad, seen by surg, pulm labs noted 08/27 awake on restraints, thoracentesis for am, labs reviewed 08/29 no bleeding, no night sweats, no major changes, on ppi bid 08/30 no major events, remains on vent, no bleeding, dw pcp 08/31 hgb dropped to 3.6, has been transfused with prbc, in icu, david Rn, ct chest pend 09/01 no major events, no bleeding, labs noted, hgb remains low, hgb 9.6 09/03 lethargic, left chest tube dry/intact, off abx, vent 09/04 remains on a vent, synthroid, labs reviewed 09/05 awake and alert, no acute events, hgb 9.8, no new orders 09/06 no bleeding or chills, labs noted, no major events overnight, david rn 09/07 no events, no night sweats, no bleeding, no fc, remains agitated in the am 09/08 remains in the icu, trach was done, on vent, abx off, on epo 09/10 transferred to sdu, restraints, vent, labs reviewed 09/11 tube feeds have been ongoing, no f/c, labs reviewed 09/12 no events, no bleeding, no night sweats, hgb 10 09/13 tsh is improved, remains confused, hgb is 11, no bleeding 09/14 no events, no bleeding, labs noted, vitals stable 09/15 confused, no acute events, restraints, dc planning 09/17 no new changes, no recent labs, placement pending 09/18 no events, no bleeding, no night sweats, fevers 09/19 nonverbal, vent, elevated bp, off abx 09/20 labs reviewed, david rn, no bleeding, meds reviewed 09/21 is a+o x 1, nonverbal, no bleeding, labs reviewed, no night sweats 09/22 no major events, no bleeding, no night sweats, no f/c, labs noted hgb 10.5 09/25 no events, no bleeding, labs noted, cbc reviewed 09/26 no events, with gtube feeds ongoing and with event, labs noted 09/27 labs have been reviewed, no night sweats, no fc 09/28 labs reviewed, no night sweats, hgb lower, but holding off on transfusion 09/29 alert, stool ob negative, h/h stable, dc planning Objective Objective Current Medications Medications (Trade) Dose Ordered Sig/Javier Route PRN Reason Start Time Stop Time Status Last Admin Dose Admin Acetylcysteine (Mucomyst) 100 mg Q4HRT HHN 08/31/19 19:00 11/29/19 18:59 09/30/19 15:06 Albuterol/ Ipratropium (Albuterol/ Ipratropium) 3 ml Q4HRT HHN 09/22/19 15:00 12/09/19 14:59 09/30/19 15:06 Amlodipine Besylate (Norvasc) 5 mg BID ORAL 09/25/19 09:00 10/25/19 08:59 09/30/19 08:39 Chlorhexidine Gluconate (Nae-Hex 2%) 1 applic DAILY@2000 TOPIC 09/17/19 20:00 12/16/19 19:59 09/29/19 20:27 Clonidine HCl (Catapres Tab) 0.1 mg Q4H PRN ORAL For High Blood Pressure 09/22/19 21:00 12/21/19 20:59 09/30/19 13:28 Dextrose (Dextrose 50%) 25 ml Q30M PRN IV Hypoglycemia 09/02/19 06:15 12/01/19 06:14 09/04/19 12:11 Dextrose (Dextrose 50%) 50 ml Q30M PRN IV Hypoglycemia 09/02/19 06:15 12/01/19 06:14 Lansoprazole (Prevacid) 30 mg DAILY GT 09/27/19 09:00 10/27/19 08:59 09/30/19 08:39 Levothyroxine Sodium (Synthroid) 125 mcg DAILY@0630 ORAL 09/22/19 06:30 10/22/19 06:29 09/30/19 06:17 Psyllium Hydrophilic Mucilloid (Metamucil) 1 pkt DAILY ORAL 09/22/19 15:00 10/22/19 14:59 09/30/19 08:39 Sevelamer Carbonate (Renvela) 800 mg Q8HR NG 09/25/19 14:00 12/24/19 13:59 09/30/19 13:28 Last 24 Hour Vital Signs Date Time Temp Pulse Resp B/P (MAP) Pulse Ox O2 Delivery O2 Flow Rate FiO2 09/30/19 16:09 73 09/30/19 16:00 30 09/30/19 16:00 Mechanical Ventilator 09/30/19 15:22 75 18 100 Mechanical Ventilator 30 74 18 30 09/30/19 13:28 169/88 09/30/19 12:00 97.7 76 18 169/88 (115) 100 09/30/19 12:00 30 09/30/19 12:00 Mechanical Ventilator 09/30/19 11:45 82 09/30/19 11:29 88 18 100 Mechanical Ventilator 30 77 18 30 09/30/19 08:39 77 144/81 09/30/19 08:00 30 09/30/19 08:00 Mechanical Ventilator 09/30/19 08:00 97.2 77 20 144/81 (102) 99 09/30/19 07:55 77 18 100 Mechanical Ventilator 30 78 18 30 09/30/19 07:44 81 09/30/19 04:44 72 18 30 09/30/19 04:00 97.6 77 15 149/59 (89) 100 09/30/19 04:00 30 09/30/19 04:00 Mechanical Ventilator 09/30/19 03:49 78 09/30/19 02:32 74 18 100 Mechanical Ventilator 30 78 18 30 09/30/19 00:00 Mechanical Ventilator 09/30/19 00:00 77 09/30/19 00:00 98.1 77 18 160/84 (109) 100 09/29/19 22:58 75 18 100 Mechanical Ventilator 30 75 18 30 09/29/19 20:12 74 18 100 Mechanical Ventilator 30 77 18 30 09/29/19 20:00 30 09/29/19 20:00 97.5 80 18 151/70 (97) 100 09/29/19 20:00 Mechanical Ventilator 09/29/19 20:00 75 09/29/19 17:51 76 156/76 09/29/19 17:05 76 18 30 09/29/19 16:00 79 09/29/19 16:00 Mechanical Ventilator 09/29/19 16:00 30 09/29/19 15:59 97.0 76 18 156/76 (102) 100 09/29/19 12:00 Mechanical Ventilator Mechanical Ventilator Mechanical Ventilator Mechanical Ventilator 09/29/19 12:00 97.5 85 14 157/66 (96) 99 09/29/19 12:00 30 09/29/19 12:00 65 09/29/19 11:49 74 18 100 Mechanical Ventilator 30 74 18 30 09/29/19 09:18 73 18 30 09/29/19 09:16 68 152/91 09/29/19 08:00 Mechanical Ventilator Mechanical Ventilator Mechanical Ventilator Mechanical Ventilator 09/29/19 08:00 30 09/29/19 08:00 98.1 68 18 152/91 (111) 96 09/29/19 07:45 53 25 95 Mechanical Ventilator 30 66 20 30 09/29/19 07:44 78 09/29/19 04:42 62 18 30 09/29/19 04:00 30 09/29/19 04:00 Mechanical Ventilator Mechanical Ventilator Mechanical Ventilator Mechanical Ventilator 09/29/19 04:00 97.2 69 18 154/76 (102) 100 09/29/19 04:00 69 09/29/19 03:44 64 18 100 Mechanical Ventilator 30 63 18 30 09/29/19 00:00 Mechanical Ventilator Mechanical Ventilator Mechanical Ventilator Mechanical Ventilator 09/29/19 00:00 61 09/29/19 00:00 97.5 61 18 148/75 (99) 100 09/28/19 23:15 65 18 100 Mechanical Ventilator 30 65 18 30 09/28/19 20:00 61 18 148/75 (99) 100 09/28/19 20:00 60 09/28/19 20:00 60 18 100 Mechanical Ventilator 30 61 18 30 09/28/19 20:00 30 09/28/19 20:00 Mechanical Ventilator Mechanical Ventilator Mechanical Ventilator Mechanical Ventilator Intake and Output 09/29/19 09/30/19 19:00 07:00 Intake Total 520 ml 450 ml Output Total 150 ml 350 ml Balance 370 ml 100 ml Intake Free Water 100 ml 100 ml Tube Feeding 420 ml 350 ml Output Urine Total 150 ml 350 ml # Bowel Movements 3 1 Labs Test 09/28/19 03:17 09/28/19 09:50 09/29/19 05:00 09/29/19 05:34 White Blood Count 7.5 K/UL (4.8-10.8) 10.1 K/UL (4.8-10.8) Red Blood Count 2.69 M/UL (4.20-5.40) 2.57 M/UL (4.20-5.40) Hemoglobin 8.2 G/DL (12.0-16.0) 7.8 G/DL (12.0-16.0) Hematocrit 23.9 % (37.0-47.0) 22.6 % (37.0-47.0) Mean Corpuscular Volume 89 FL (80-99) 88 FL (80-99) Mean Corpuscular Hemoglobin 30.4 PG (27.0-31.0) 30.3 PG (27.0-31.0) Mean Corpuscular Hemoglobin Concent 34.2 G/DL (32.0-36.0) 34.5 G/DL (32.0-36.0) Red Cell Distribution Width 15.0 % (11.6-14.8) 15.0 % (11.6-14.8) Platelet Count 368 K/UL (150-450) 338 K/UL (150-450) Mean Platelet Volume 4.5 FL (6.5-10.1) 5.1 FL (6.5-10.1) Neutrophils (%) (Auto) 60.7 % (45.0-75.0) % (45.0-75.0) Lymphocytes (%) (Auto) 31.3 % (20.0-45.0) % (20.0-45.0) Monocytes (%) (Auto) 5.2 % (1.0-10.0) % (1.0-10.0) Eosinophils (%) (Auto) 1.9 % (0.0-3.0) % (0.0-3.0) Basophils (%) (Auto) 0.9 % (0.0-2.0) % (0.0-2.0) Sodium Level 143 MMOL/L (136-145) 138 MMOL/L (136-145) Potassium Level 3.9 MMOL/L (3.5-5.1) 3.6 MMOL/L (3.5-5.1) Chloride Level 104 MMOL/L (98-107) 101 MMOL/L (98-107) Carbon Dioxide Level 26 MMOL/L (21-32) 26 MMOL/L (21-32) Anion Gap 13 mmol/L (5-15) 12 mmol/L (5-15) Blood Urea Nitrogen 80 mg/dL (7-18) 102 mg/dL (7-18) Creatinine 2.7 MG/DL (0.55-1.30) 3.1 MG/DL (0.55-1.30) Estimat Glomerular Filtration Rate 17.0 mL/min (>60) 14.5 mL/min (>60) Glucose Level 72 MG/DL (74-106) 102 MG/DL (74-106) Calcium Level 8.6 MG/DL (8.5-10.1) 8.5 MG/DL (8.5-10.1) Total Bilirubin 0.5 MG/DL (0.2-1.0) 0.5 MG/DL (0.2-1.0) Aspartate Amino Transf (AST/SGOT) 344 U/L (15-37) 255 U/L (15-37) Alanine Aminotransferase (ALT/SGPT) 344 U/L (12-78) 246 U/L (12-78) Alkaline Phosphatase 424 U/L (46-116) 400 U/L (46-116) Total Protein 6.9 G/DL (6.4-8.2) 6.7 G/DL (6.4-8.2) Albumin 2.1 G/DL (3.4-5.0) 2.0 G/DL (3.4-5.0) Globulin 4.8 g/dL 4.7 g/dL Albumin/Globulin Ratio 0.4 (1.0-2.7) 0.4 (1.0-2.7) Thyroid Stimulating Hormone (TSH) 6.076 uiU/mL (0.358-3.740) Free Thyroxine 1.46 NG/DL (0.76-1.46) Stool Occult Blood Positive (NEGATIVE) Phosphorus Level 4.3 MG/DL (2.5-4.9) Magnesium Level 2.5 MG/DL (1.8-2.4) Test 09/29/19 18:15 09/30/19 06:05 Stool Occult Blood Negative (NEGATIVE) White Blood Count 12.4 K/UL (4.8-10.8) Red Blood Count 2.69 M/UL (4.20-5.40) Hemoglobin 8.1 G/DL (12.0-16.0) Hematocrit 24.0 % (37.0-47.0) Mean Corpuscular Volume 89 FL (80-99) Mean Corpuscular Hemoglobin 30.1 PG (27.0-31.0) Mean Corpuscular Hemoglobin Concent 33.8 G/DL (32.0-36.0) Red Cell Distribution Width 14.9 % (11.6-14.8) Platelet Count 345 K/UL (150-450) Mean Platelet Volume 4.8 FL (6.5-10.1) Neutrophils (%) (Auto) % (45.0-75.0) Lymphocytes (%) (Auto) % (20.0-45.0) Monocytes (%) (Auto) % (1.0-10.0) Eosinophils (%) (Auto) % (0.0-3.0) Basophils (%) (Auto) % (0.0-2.0) Differential Total Cells Counted 100 Neutrophils % (Manual) 73 % (45-75) Lymphocytes % (Manual) 23 % (20-45) Monocytes % (Manual) 2 % (1-10) Eosinophils % (Manual) 2 % (0-3) Basophils % (Manual) 0 % (0-2) Band Neutrophils 0 % (0-8) Platelet Estimate Adequate Platelet Morphology Normal Anisocytosis 1+ Sodium Level 138 MMOL/L (136-145) Potassium Level 3.8 MMOL/L (3.5-5.1) Chloride Level 100 MMOL/L (98-107) Carbon Dioxide Level 26 MMOL/L (21-32) Anion Gap 12 mmol/L (5-15) Blood Urea Nitrogen 124 mg/dL (7-18) Creatinine 3.5 MG/DL (0.55-1.30) Estimat Glomerular Filtration Rate 12.6 mL/min (>60) Glucose Level 139 MG/DL (74-106) Calcium Level 8.7 MG/DL (8.5-10.1) Total Bilirubin 0.5 MG/DL (0.2-1.0) Aspartate Amino Transf (AST/SGOT) 676 U/L (15-37) Alanine Aminotransferase (ALT/SGPT) 517 U/L (12-78) Alkaline Phosphatase 579 U/L (46-116) Total Protein 6.5 G/DL (6.4-8.2) Albumin 2.2 G/DL (3.4-5.0) Globulin 4.3 g/dL Albumin/Globulin Ratio 0.5 (1.0-2.7) Height (Feet): 5 Height (Inches): 4.00 Weight (Pounds): 112 Objective Physical Exam vitals: reviewed gen: nad pulm: on trach+ / vent, decreased breath sounds left, chest tube+ cv: rrr, no gmr abd: sfot, nt, nd ++ gt ext: no cce Gio Rob MD Sep 30, 2019 17:56
[2019-09-30] MEDS: Dyna-Hex 2% Top Sol 2oz TOPIC SCH (19:58)
[2019-09-30 20:00] VITALS: BP 156/74
--- NOTE | 2019-09-30 20:21 | Surgery Progress Note ---
Surgery Progress Note Subjective Procedure Performed 1. tracheostomy 2 removal of left tube thoracostomy Additional Comments no acute events seemingly comfortable Objective Last 24 Hour Vital Signs Date Time Temp Pulse Resp B/P (MAP) Pulse Ox O2 Delivery O2 Flow Rate FiO2 09/30/19 19:10 80 18 100 Mechanical Ventilator 30 82 18 30 09/30/19 17:57 73 149/81 09/30/19 16:09 73 09/30/19 16:00 30 09/30/19 16:00 97.7 74 20 149/81 (103) 98 09/30/19 16:00 Mechanical Ventilator 09/30/19 15:22 75 18 100 Mechanical Ventilator 30 74 18 30 09/30/19 13:28 169/88 09/30/19 12:00 97.7 76 18 169/88 (115) 100 09/30/19 12:00 30 09/30/19 12:00 Mechanical Ventilator 09/30/19 11:45 82 09/30/19 11:29 88 18 100 Mechanical Ventilator 30 77 18 30 09/30/19 08:39 77 144/81 09/30/19 08:00 30 09/30/19 08:00 Mechanical Ventilator 09/30/19 08:00 97.2 77 20 144/81 (102) 99 09/30/19 07:55 77 18 100 Mechanical Ventilator 30 78 18 30 09/30/19 07:44 81 09/30/19 04:44 72 18 30 09/30/19 04:00 97.6 77 15 149/59 (89) 100 09/30/19 04:00 30 09/30/19 04:00 Mechanical Ventilator 09/30/19 03:49 78 09/30/19 02:32 74 18 100 Mechanical Ventilator 30 78 18 30 09/30/19 00:00 Mechanical Ventilator 09/30/19 00:00 77 09/30/19 00:00 98.1 77 18 160/84 (109) 100 09/29/19 22:58 75 18 100 Mechanical Ventilator 30 75 18 30 I&O Intake and Output 09/29/19 09/30/19 19:00 07:00 Intake Total 520 ml 450 ml Output Total 150 ml 350 ml Balance 370 ml 100 ml Intake Free Water 100 ml 100 ml Tube Feeding 420 ml 350 ml Output Urine Total 150 ml 350 ml # Bowel Movements 3 1 Cardiovascular: RSR Respiratory: decreased breath sounds Abdomen: soft, non-tender, present bowel sounds Extremities: no edema, no tenderness, no cyanosis Laboratory Tests Test 09/30/19 06:05 White Blood Count 12.4 K/UL (4.8-10.8) H Red Blood Count 2.69 M/UL (4.20-5.40) L Hemoglobin 8.1 G/DL (12.0-16.0) L Hematocrit 24.0 % (37.0-47.0) L Mean Corpuscular Volume 89 FL (80-99) Mean Corpuscular Hemoglobin 30.1 PG (27.0-31.0) Mean Corpuscular Hemoglobin Concent 33.8 G/DL (32.0-36.0) Red Cell Distribution Width 14.9 % (11.6-14.8) H Platelet Count 345 K/UL (150-450) Mean Platelet Volume 4.8 FL (6.5-10.1) L Neutrophils (%) (Auto) % (45.0-75.0) Lymphocytes (%) (Auto) % (20.0-45.0) Monocytes (%) (Auto) % (1.0-10.0) Eosinophils (%) (Auto) % (0.0-3.0) Basophils (%) (Auto) % (0.0-2.0) Differential Total Cells Counted 100 Neutrophils % (Manual) 73 % (45-75) Lymphocytes % (Manual) 23 % (20-45) Monocytes % (Manual) 2 % (1-10) Eosinophils % (Manual) 2 % (0-3) Basophils % (Manual) 0 % (0-2) Band Neutrophils 0 % (0-8) Platelet Estimate Adequate Platelet Morphology Normal Anisocytosis 1+ Sodium Level 138 MMOL/L (136-145) Potassium Level 3.8 MMOL/L (3.5-5.1) Chloride Level 100 MMOL/L (98-107) Carbon Dioxide Level 26 MMOL/L (21-32) Anion Gap 12 mmol/L (5-15) Blood Urea Nitrogen 124 mg/dL (7-18) H Creatinine 3.5 MG/DL (0.55-1.30) H Estimat Glomerular Filtration Rate 12.6 mL/min (>60) Glucose Level 139 MG/DL (74-106) H Calcium Level 8.7 MG/DL (8.5-10.1) Total Bilirubin 0.5 MG/DL (0.2-1.0) Aspartate Amino Transf (AST/SGOT) 676 U/L (15-37) H Alanine Aminotransferase (ALT/SGPT) 517 U/L (12-78) H Alkaline Phosphatase 579 U/L (46-116) H Total Protein 6.5 G/DL (6.4-8.2) Albumin 2.2 G/DL (3.4-5.0) L Globulin 4.3 g/dL Albumin/Globulin Ratio 0.5 (1.0-2.7) L Assessment Post-op Diagnosis same Plan Problems: (1) Malnutrition Assessment & Plan: DAILY ESTIMATED NEEDS: Needs based on ESRD+ HD, underweight, wound/ 39.5kg 35-40 kcals/kg 1571-7808 total kcals 1.25-1.8 g protein/kg 49-71 g total protein 20-22 mL/kg 790-869 total fluid mLs NUTRITION DIAGNOSIS: * Increased kcal and protein needs r/t underweight status, HD needs, wuond healing as evidenced by pt is underweight per guidelines, ESRD, on HD, admitted non-blanching erythema wounds @ BL heels and sacrum * Swallowing difficulty R/T dysphagia as evidenced by COMPONENT OVERHAUL OPERATOR recommends temporary nonoral feeding at this time, s/p NGT insertion, on NGT feeding-> now s/p self removal, NPO. CURRENT TF:NPO PO DIET RECOMMENDATIONS: WHEN SAFE FOR ORAL DIET -> renal/ texture per COMPONENT OVERHAUL OPERATOR ENTERAL NUTRITION RECOMMENDATIONS: W/ GI access: Nepro @ 35ml/hr x 22 hrs to provide 770ml, 1386kcal, 62g prot, 560ml free water * W/ GI access, resume TF on Nepro * Initiate Nepro @ 15ml/hr x 6 hrs, advance 10ml q 4-6 hrs as tolerated to goal rate. * Hold 1 hour before and after Synthroid med * HOB over 30 degrees/ water flush per MD. ADDITIONAL RECOMMENDATIONS: 1) Calibrated bed scale wt for accurate CBW -> daily wt monitoring Per HD record: dry wt on 07/30=39.5kg (87lbs) 2) Wound care: (W/ GI access) add Nephorivte x 1 + Balta BID 3) Monitor NPO status: without GI access at this time, s/p pulling out NGT 4) Monitor for hypoglycemia while NPO 5) Monitor for continuity of HD (2) Septic arthritis Assessment & Plan: Pt presented on admission with generalized scaly rash . pt noted to be restless and scratching at skin. Bleeding from oral mucosa noted. Joint deformity noted to R shoulder. Surgical incision approximated with 11 sutures. Erythema but no exudate,or elevation in skin temp at site of incision. Historical incision R hip that is tunneled.Small amt seropurulent exudate noted. Periwound is erythematous,but no elevation in skin temp noted. No odor noted. Non-blanching erythema noted to sacrum. Perianal area is erythematous and excoriated. L heel is boggy with non-blanching erythema. R heel is soft with non-blanching erythema. No evidence of skin breakdown to all other bony prominences. Tx.plan: Cover R shoulder with Drsg and change daily and prn. Cleanse R hip wound with Saline. Apply Therahoney.Apply Cavilon Skin Barrier periwound. Cover with Optifoam drsg. Change every 3 days and prn. Apply Moisture Barrier Paste to perianal area and buttocks. Cover Sacrum with Optifoam drsg. Change every 3 days and prn. Apply Cavilon Skin Barrier to both heels. Cover each heel with Optifoam drsg. Change every 7 days and prn. APM/ELVIA Mattress overlay. Reposition at least every 2hours or as tolerated. Off-load heels with pillow. HD cath necessary HD as renal likely will need intubation 19 x 11 x 11 mm hypoechoic area in the liver adjacent to the gallbladder fossa. Although location is typical for area of focal sparing in a fatty liver, there are no findings to indicate fatty liver and this is a new finding since fairly recent previous exam. Therefore the possibility of a process such as small abscess should be considered. Atrophic echogenic kidneys Negative for gallstones or dilated bile ducts (3) Wound, open, hip or thigh with complication Assessment & Plan: slow healing will need nutritional optimization difficult ng tube peg when stable sutures removed from right shoulder comfortable wean vent may need trach (4) Abscess of right hip (5) possible septic arthritis (6) Renal failure (ARF), acute on chronic Assessment & Plan: cont HD will need tunneled cath placement okay to use fem line for now but will need change soon. line monitored and clean dressings going well (7) Pneumonia Assessment & Plan: intubated on vent support not tolerating weaning may need trach hemothorax likely after thoracentesis Chest CT noted Left chest tube placed With plan for trach chest tube can be considered but overall prognosis is very poor s/p trach left chest tub eout cxr noted and okay downgrade left pleural effusion dressings saturated will need to monitor. may need another chest tube as may not heal well on left side Anasarca, with as mentioned above diffuse edema of the soft tissues, trace ascites, and bilateral pleural effusions No hepatic abnormality to correlate with suspected small pericholecystic lesion in the liver described on recent sonogram. The lesion may be occult on noncontrast CT, may have been artifactual or may have resolved in the interim. Consider repeat sonography in a few days to assess progression No definite acute abdominal process otherwise Improved but still sizable left pleural effusion with minimal residual hemoperitoneum since prior CT scan of 09/01/2019. There is near complete atelectasis of the left lower lobe. There is a small right pleural effusion with atelectatic changes of the right lower lobe and right perihilar dense consolidation. These appear improved since a prior CT of 09/01/2019 Increased crazy paving type opacity within the right middle lobe since previous August [address], may reflect an area of increasing infiltrate, versus focal edema. There is also some dense consolidation of the perihilar right lower lobe which is improved since the previous August 31 CT Right groin temporary dialysis catheter in good position Atrophic kidneys, consistent with known history of chronic renal disease L2 compression fracture deformity, and advanced degenerative changes of the L2- L3 disc. Similar to prior study Marroquin catheter hold on repeat chest tube (8) Liver enzyme elevation Assessment & Plan: likely shock liver improving trend Camilo James Sep 30, 2019 20:21
[2019-10-01] VITALS: BP 156/76
--- NOTE | 2019-10-01 02:59 | Progress Note ---
DATE: 09/30/2019 CARDIOLOGY PROGRESS NOTE SUBJECTIVE: Patient remains on ventilator support via tracheostomy. Monitored rhythm, sinus with occasional atrial ectopics. PHYSICAL EXAMINATION: VITAL SIGNS: Blood pressure trend up, now 144/81 to 169/88, heart rate 70, respiratory rate 18 to 20, afebrile. HEENT: Thin trach secretions. LUNGS: Bilateral rhonchi. CARDIAC: Regular rhythm and rate. Normal S1, S2. A 1/6 systolic murmur at apex. ABDOMEN: Soft. No ascites. EXTREMITIES: Trace edema. LABORATORY DATA: White count 12.4, hemoglobin 8.1. BUN 124, creatinine 3.5, potassium 3.8, albumin 2.2. Liver function studies have started to increase once again. IMPRESSION: 1. Patient has been off hydralazine for almost a week. An alternative etiology for transaminitis consideration may include cholestasis. 2. Acute on chronic diastolic congestive heart failure. 3. End-stage renal disease. 4. Ventilator-dependent respiratory failure. 5. Hypertensive heart disease with labile blood pressure. PLAN: 1. Consider alternate imaging of the hepatobiliary tract. 2. Ventilator support. 3. Weaning efforts. 4. Titrate antihypertensives. 5. Nutrition by feeding tube. Abel Stubbs M.D. DR: NESS JOB#: [id number] CC:
[2019-10-01] MEDS: Albuterol/Ipratropium 3ml neb HHN SCH ×6 (03:07→22:37)
[2019-10-01 04:00] VITALS: BP 155/80
[2019-10-01 05:55] LABS: ALANINE AMINOTRANSFERASE 297 U/L (12-78); ALBUMIN 2.2 G/DL (3.4-5.0); ALBUMIN/GLOBULIN RATIO 0.5 (1.0-2.7); ALKALINE PHOSPHATASE 411 U/L (46-116); ANION GAP 12 mmol/L (5-15); ASPARTATE AMINO TRANSFERASE 284 U/L (15-37); BILIRUBIN,TOTAL 0.5 MG/DL (0.2-1.0); BLOOD UREA NITROGEN 139 mg/dL (7-18); CALCIUM 8.6 MG/DL (8.5-10.1); CARBON DIOXIDE 25 MMOL/L (21-32); CHLORIDE 100 MMOL/L (98-107); CREATININE 3.7 MG/DL (0.55-1.30); POTASSIUM 3.8 MMOL/L (3.5-5.1); SODIUM 137 MMOL/L (136-145)
[2019-10-01] MEDS: Renvela 800mg Pkt NG SCH ×3 (06:08→23:00)
[2019-10-01] MEDS: Levothyroxine 125mcg tab ORAL SCH (06:08)
--- NOTE | 2019-10-01 07:21 | General Progress Note ---
Assessment/Plan Status: stable, not improved, unchanged, deteriorating Assessment/Plan: Assessment - Severe ulcerative esophagitis - mild elevation in LFT, Hepatitis B/C negative --> now sudden rise - ? related to new 1.9 cm mass near GB - ? autoimmune / high ESR - abnormal liver on CT - ? chronic disease / fibrosis - Resp failure - trach - s/p recent Chest tube and removal - Renal failure - aspiration risk --> s/p PEG - anemia - bradycardia - Poor prognosis Recommendations - CT reviewed -? shock liver. Repeat in am>>> improving - check autoimmune markers - pending>>> neg JOLIE - check AFP - GT care - water flushes - elevate HOB - monitor H&H - ppi -check stool ob>>>positive>>> ordered one more>>>seconf one neg patient poor candidate for GI procedures - vent -improving LFTS -fu IGG -patient not a candidate for liver biopsy -may need steroid treatment will fu Subjective ROS Limited/Unobtainable: No Allergies: Coded Allergies: VANCOMYCIN (Unverified Allergy, Unknown, 08/02/19) Subjective s/p blood transfusion Objective Last 24 Hour Vital Signs Date Time Temp Pulse Resp B/P (MAP) Pulse Ox O2 Delivery O2 Flow Rate FiO2 10/01/19 04:00 30 10/01/19 04:00 97.7 79 20 155/80 (105) 99 10/01/19 04:00 78 10/01/19 04:00 Mechanical Ventilator 10/01/19 03:07 77 18 100 Mechanical Ventilator 30 81 18 30 10/01/19 01:11 80 18 100 Mechanical Ventilator 30 10/01/19 00:00 97.8 83 20 156/76 (102) 100 10/01/19 00:00 Mechanical Ventilator 09/30/19 23:41 86 09/30/19 22:45 78 18 100 Mechanical Ventilator 30 80 18 30 09/30/19 20:00 30 09/30/19 20:00 98.5 83 20 156/74 (101) 100 09/30/19 20:00 Mechanical Ventilator 09/30/19 19:28 82 09/30/19 19:10 80 18 100 Mechanical Ventilator 30 82 18 30 09/30/19 17:57 73 149/81 09/30/19 16:09 73 09/30/19 16:00 30 09/30/19 16:00 97.7 74 20 149/81 (103) 98 09/30/19 16:00 Mechanical Ventilator 09/30/19 15:22 75 18 100 Mechanical Ventilator 30 74 18 30 09/30/19 13:28 169/88 09/30/19 12:00 97.7 76 18 169/88 (115) 100 09/30/19 12:00 30 09/30/19 12:00 Mechanical Ventilator 09/30/19 11:45 82 09/30/19 11:29 88 18 100 Mechanical Ventilator 30 77 18 30 09/30/19 08:39 77 144/81 09/30/19 08:00 30 09/30/19 08:00 Mechanical Ventilator 09/30/19 08:00 97.2 77 20 144/81 (102) 99 09/30/19 07:55 77 18 100 Mechanical Ventilator 30 78 18 30 09/30/19 07:44 81 Intake and Output 09/30/19 10/01/19 19:00 07:00 Intake Total 670 ml 535 ml Output Total 250 ml Balance 420 ml 535 ml Intake Free Water 250 ml 150 ml Tube Feeding 420 ml 385 ml Output Urine Total 250 ml # Bowel Movements 2 1 Laboratory Tests 10/01/19 04:35: Sodium Level 137, Potassium Level 3.8, Chloride Level 100, Carbon Dioxide Level 25, Anion Gap 12, Blood Urea Nitrogen 139H, Creatinine 3.7H, Estimat Glomerular Filtration Rate 11.8, Glucose Level 138H, Calcium Level 8.6, Total Bilirubin 0.5 , Aspartate Amino Transf (AST/SGOT) 284H, Alanine Aminotransferase (ALT/SGPT) 297H, Alkaline Phosphatase 411H, Total Protein 7.0, Albumin 2.2L, Globulin 4.8, Albumin/Globulin Ratio 0.5L, Immunoglobulin G [Pending] Height (Feet): 5 Height (Inches): 4.00 Weight (Pounds): 112 General Appearance: no apparent distress EENT: normal ENT inspection Neck: supple Cardiovascular: normal rate Respiratory/Chest: decreased breath sounds Abdomen: normal bowel sounds, non tender, soft Extremities: non-tender Kenny Rudolph MD Oct 01, 2019 07:21
[2019-10-01 08:00] VITALS: BP 156/74
[2019-10-01] MEDS: Metamucil Pkt ORAL SCH (08:29)
--- NOTE | 2019-10-01 10:35 | Infectious Diseases Prog Note ---
Assessment/Plan Assessment/Plan antibiotics : none A 1. jarad albicans fungemia s/p rx 2. right shoulder septic arthritis with staph aureus s/p rx 3. pleural effusion 4. thrombocytopenia resolved 7. diabetes mellitus 8. hypertension 9. respiratory failure P 1. observe off antibiotics Subjective ROS Limited/Unobtainable: Yes Allergies: Coded Allergies: VANCOMYCIN (Unverified Allergy, Unknown, 08/02/19) Objective Vital Signs Last 24 Hour Vital Signs Date Time Temp Pulse Resp B/P (MAP) Pulse Ox O2 Delivery O2 Flow Rate FiO2 10/01/19 09:28 100 10/01/19 09:28 63 18 30 10/01/19 08:28 83 156/74 10/01/19 08:28 83 156/74 10/01/19 08:00 30 10/01/19 08:00 98.5 83 20 156/74 (101) 100 10/01/19 07:41 77 10/01/19 07:35 81 18 100 Mechanical Ventilator 30 82 19 30 10/01/19 04:00 30 10/01/19 04:00 97.7 79 20 155/80 (105) 99 10/01/19 04:00 78 10/01/19 04:00 Mechanical Ventilator 10/01/19 03:07 77 18 100 Mechanical Ventilator 30 81 18 30 10/01/19 01:11 80 18 100 Mechanical Ventilator 30 10/01/19 00:00 97.8 83 20 156/76 (102) 100 10/01/19 00:00 Mechanical Ventilator 09/30/19 23:41 86 09/30/19 22:45 78 18 100 Mechanical Ventilator 30 80 18 30 09/30/19 20:00 30 09/30/19 20:00 98.5 83 20 156/74 (101) 100 09/30/19 20:00 Mechanical Ventilator 09/30/19 19:28 82 09/30/19 19:10 80 18 100 Mechanical Ventilator 30 82 18 30 09/30/19 17:57 73 149/81 09/30/19 16:09 73 09/30/19 16:00 30 09/30/19 16:00 97.7 74 20 149/81 (103) 98 09/30/19 16:00 Mechanical Ventilator 09/30/19 15:22 75 18 100 Mechanical Ventilator 30 74 18 30 09/30/19 13:28 169/88 09/30/19 12:00 97.7 76 18 169/88 (115) 100 09/30/19 12:00 30 09/30/19 12:00 Mechanical Ventilator 09/30/19 11:45 82 09/30/19 11:29 88 18 100 Mechanical Ventilator 30 77 18 30 Height (Feet): 5 Height (Inches): 4.00 Weight (Pounds): 112 HEENT: status post trach Respiratory/Chest: lungs clear Cardiovascular: normal rate, regular rhythm, no gallop/murmur Abdomen: soft, non tender, other - GT Extremities: no edema, other - right groin catheter Laboratory Tests Test 10/01/19 04:35 Sodium Level 137 MMOL/L (136-145) Potassium Level 3.8 MMOL/L (3.5-5.1) Chloride Level 100 MMOL/L (98-107) Carbon Dioxide Level 25 MMOL/L (21-32) Anion Gap 12 mmol/L (5-15) Blood Urea Nitrogen 139 mg/dL (7-18) H Creatinine 3.7 MG/DL (0.55-1.30) H Estimat Glomerular Filtration Rate 11.8 mL/min (>60) Glucose Level 138 MG/DL (74-106) H Calcium Level 8.6 MG/DL (8.5-10.1) Total Bilirubin 0.5 MG/DL (0.2-1.0) Aspartate Amino Transf (AST/SGOT) 284 U/L (15-37) H Alanine Aminotransferase (ALT/SGPT) 297 U/L (12-78) H Alkaline Phosphatase 411 U/L (46-116) H Total Protein 7.0 G/DL (6.4-8.2) Albumin 2.2 G/DL (3.4-5.0) L Globulin 4.8 g/dL Albumin/Globulin Ratio 0.5 (1.0-2.7) L Immunoglobulin G Pending Current Medications Medications (Trade) Dose Ordered Sig/Javier Route PRN Reason Start Time Stop Time Status Last Admin Dose Admin Acetylcysteine (Mucomyst) 100 mg Q4HRT N 08/31/19 19:00 11/29/19 18:59 10/01/19 07:19 Albuterol/ Ipratropium (Albuterol/ Ipratropium) 3 ml Q4HRT N 09/22/19 15:00 12/09/19 14:59 10/01/19 07:19 Amlodipine Besylate (Norvasc) 5 mg BID ORAL 09/25/19 09:00 10/25/19 08:59 10/01/19 08:28 Chlorhexidine Gluconate (Nae-Hex 2%) 1 applic DAILY@2000 TOPIC 09/17/19 20:00 12/16/19 19:59 09/30/19 19:58 Clonidine HCl (Catapres Tab) 0.1 mg Q4H PRN ORAL For High Blood Pressure 09/22/19 21:00 12/21/19 20:59 09/30/19 13:28 Dextrose (Dextrose 50%) 25 ml Q30M PRN IV Hypoglycemia 09/02/19 06:15 12/01/19 06:14 09/04/19 12:11 Dextrose (Dextrose 50%) 50 ml Q30M PRN IV Hypoglycemia 09/02/19 06:15 12/01/19 06:14 Lansoprazole (Prevacid) 30 mg DAILY GT 09/27/19 09:00 10/27/19 08:59 10/01/19 08:29 Levothyroxine Sodium (Synthroid) 125 mcg DAILY@0630 ORAL 09/22/19 06:30 10/22/19 06:29 10/01/19 06:08 Metoprolol Tartrate (Lopressor) 25 mg Q12HR ORAL 10/01/19 09:00 12/30/19 08:59 10/01/19 08:28 Psyllium Hydrophilic Mucilloid (Metamucil) 1 pkt DAILY ORAL 09/22/19 15:00 10/22/19 14:59 10/01/19 08:29 Sevelamer Carbonate (Renvela) 800 mg Q8HR NG 09/25/19 14:00 12/24/19 13:59 10/01/19 06:08 Melissa Solares MD Oct 01, 2019 10:35
--- NOTE | 2019-10-01 11:14 | Nephrology Progress Note ---
Assessment/Plan Problem List: (1) Liver enzyme elevation Assessment: Acute (2) ESRD (end stage renal disease) on dialysis (3) Malnutrition (4) Anemia in CKD (chronic kidney disease) (5) Hypotension (6) Thrombocytopenia (7) Sepsis Assessment: klebsiella in blood Assessment -Early sepsis with shock. -Healthcare-associated pneumonia. -Severe protein-calorie malnutrition. -Thrombocytopenia. - End-stage renal disease. - History of hypertension. - Bradycardia. - HypoThyroid Plan Labs reviewed Smooth muscle antibody positive, Ig G ordered pending Liver enzymes rising, hepatitis panel ordered today's labs indicates lowering of liver enzymes Tracheostomy September 07 Last dialysis September 26 Chest tube on the left side was put in on September 01 was discontinued September 07 Patient transfused 3 units of packed RBCs for low hemoglobin Remains full code Blood pressure fluctuating, will start hydralazine via NG tube for blood pressure Magnesium and potassium supplement intravenously as needed Patient underwent PEG placement August 16 patient remains intubated on ventilator Discussed with RN Aim to wean from ventilator or consider tracheostomy Permacath was removed on August 12 Dialysis 08/11 Transfusion as needed Patient had hematemesis meds IV as possible Surveillance blood cultures tomorrow Plan to put the permacath back in on Thursday if cultures are negative keep BP and BS in check Inflammatory markers per orders Subjective ROS Limited/Unobtainable: Yes Objective Objective Last 24 Hour Vital Signs Date Time Temp Pulse Resp B/P (MAP) Pulse Ox O2 Delivery O2 Flow Rate FiO2 10/01/19 09:28 100 10/01/19 09:28 63 18 30 10/01/19 08:28 83 156/74 10/01/19 08:28 83 156/74 10/01/19 08:00 30 10/01/19 08:00 Mechanical Ventilator 10/01/19 08:00 98.5 83 20 156/74 (101) 100 10/01/19 07:41 77 10/01/19 07:35 81 18 100 Mechanical Ventilator 30 82 19 30 10/01/19 04:00 30 10/01/19 04:00 97.7 79 20 155/80 (105) 99 10/01/19 04:00 78 10/01/19 04:00 Mechanical Ventilator 10/01/19 03:07 77 18 100 Mechanical Ventilator 30 81 18 30 10/01/19 01:11 80 18 100 Mechanical Ventilator 30 4/18/20 00:00 97.8 83 20 156/76 (102) 100 10/01/19 00:00 Mechanical Ventilator 09/30/19 23:41 86 09/30/19 22:45 78 18 100 Mechanical Ventilator 30 80 18 30 09/30/19 20:00 30 09/30/19 20:00 98.5 83 20 156/74 (101) 100 09/30/19 20:00 Mechanical Ventilator 09/30/19 19:28 82 09/30/19 19:10 80 18 100 Mechanical Ventilator 30 82 18 30 09/30/19 17:57 73 149/81 09/30/19 16:09 73 09/30/19 16:00 30 09/30/19 16:00 97.7 74 20 149/81 (103) 98 09/30/19 16:00 Mechanical Ventilator 09/30/19 15:22 75 18 100 Mechanical Ventilator 30 74 18 30 09/30/19 13:28 169/88 09/30/19 12:00 97.7 76 18 169/88 (115) 100 09/30/19 12:00 30 09/30/19 12:00 Mechanical Ventilator 09/30/19 11:45 82 09/30/19 11:29 88 18 100 Mechanical Ventilator 30 77 18 30 Intake and Output 09/30/19 10/01/19 19:00 07:00 Intake Total 670 ml 535 ml Output Total 250 ml Balance 420 ml 535 ml Intake Free Water 250 ml 150 ml Tube Feeding 420 ml 385 ml Output Urine Total 250 ml # Bowel Movements 2 1 Laboratory Tests 10/01/19 04:35: Sodium Level 137, Potassium Level 3.8, Chloride Level 100, Carbon Dioxide Level 25, Anion Gap 12, Blood Urea Nitrogen 139H, Creatinine 3.7H, Estimat Glomerular Filtration Rate 11.8, Glucose Level 138H, Calcium Level 8.6, Total Bilirubin 0.5 , Aspartate Amino Transf (AST/SGOT) 284H, Alanine Aminotransferase (ALT/SGPT) 297H, Alkaline Phosphatase 411H, Total Protein 7.0, Albumin 2.2L, Globulin 4.8, Albumin/Globulin Ratio 0.5L, Immunoglobulin G [Pending] Height (Feet): 5 Height (Inches): 4.00 Weight (Pounds): 112 General Appearance: no apparent distress EENT: other Cardiovascular: normal rate Respiratory/Chest: decreased breath sounds - Trached and vented Abdomen: other - PEG Objective no change William Blackwood MD Oct 01, 2019 11:14
[2019-10-01 12:00] VITALS: BP 146/66
--- NOTE | 2019-10-01 13:18 | General Progress Note ---
Assessment/Plan Problem List: (1) Failure to thrive (0-17) ICD Codes: R62.51 - Failure to thrive (0-17) SNOMED: 513151233 (2) Hypertensive kidney disease ICD Codes: I12.9 - Hypertensive chronic kidney disease with stage 1 through stage 4 chronic kidney disease, or unspecified chronic kidney disease SNOMED: 20266822 (3) Pneumonia ICD Codes: J18.9 - Pneumonia, unspecified organism SNOMED: 849202048 Qualifiers: Qualified Codes: J18.9 - Pneumonia, unspecified organism (4) ESRD (end stage renal disease) ICD Codes: N18.6 - End stage renal disease SNOMED: 79616318 (5) Septic arthritis ICD Codes: M00.9 - Pyogenic arthritis, unspecified SNOMED: 136125873 (6) Thrombocytopenia ICD Codes: D69.6 - Thrombocytopenia, unspecified SNOMED: 762723772 (7) Hypotension ICD Codes: I95.9 - Hypotension, unspecified SNOMED: 15724674 Qualifiers: Qualified Codes: I95.3 - Hypotension of hemodialysis (8) Malnutrition ICD Codes: E46 - Unspecified protein-calorie malnutrition SNOMED: 43052369 Status: stable, not improved, unchanged, deteriorating Assessment/Plan: Continue vent support. Wean as able. Will discuss with pulmonary if patient could be weaned to trach collar.Suctioning and pulmonary toilet. Continue G-tube feedings. Monitor residuals Continue current blood pressure regimen with close monitoring of blood pressure. Hemodialysis with ultrafiltration per nephrology. Turn every 2 hours and good skin care. monitor labs/lfts monitor h/h may need transfusion dc hydralazine(per GI can cause transaminitis) Discharge planning in progress Subjective ROS Limited/Unobtainable: Yes Constitutional: Reports: malaise, weakness HEENT: Reports: no symptoms Cardiovascular: Reports: no symptoms Respiratory: Reports: shortness of breath, sputum Gastrointestinal/Abdominal: Reports: difficulty swallowing Genitourinary: Reports: no symptoms Neurologic/Psychiatric: Reports: emotional problems, pre-existing deficit Endocrine: Reports: no symptoms Hematologic/Lymphatic: Reports: anemia Allergies: Coded Allergies: VANCOMYCIN (Unverified Allergy, Unknown, 08/02/19) All Systems: reviewed and negative except above Subjective There were no overnight events. Patient remained stable on the ventilator. She occasionally opens her eyes. Tolerating feedings. LFTS trending down. no signs of bleeding. no med changes, Objective Last 24 Hour Vital Signs Date Time Temp Pulse Resp B/P (MAP) Pulse Ox O2 Delivery O2 Flow Rate FiO2 10/01/19 12:00 97.0 63 19 146/66 (92) 100 10/01/19 12:00 Mechanical Ventilator 10/01/19 12:00 30 10/01/19 11:48 63 10/01/19 11:23 63 18 100 Mechanical Ventilator 30 66 18 30 10/01/19 09:28 100 10/01/19 09:28 63 18 30 10/01/19 08:28 83 156/74 10/01/19 08:28 83 156/74 10/01/19 08:00 30 10/01/19 08:00 Mechanical Ventilator 10/01/19 08:00 98.5 83 20 156/74 (101) 100 10/01/19 07:41 77 10/01/19 07:35 81 18 100 Mechanical Ventilator 30 82 19 30 10/01/19 04:00 30 10/01/19 04:00 97.7 79 20 155/80 (105) 99 10/01/19 04:00 78 10/01/19 04:00 Mechanical Ventilator 10/01/19 03:07 77 18 100 Mechanical Ventilator 30 81 18 30 10/01/19 01:11 80 18 100 Mechanical Ventilator 30 10/01/19 00:00 97.8 83 20 156/76 (102) 100 10/01/19 00:00 Mechanical Ventilator 09/30/19 23:41 86 09/30/19 22:45 78 18 100 Mechanical Ventilator 30 80 18 30 09/30/19 20:00 30 09/30/19 20:00 98.5 83 20 156/74 (101) 100 09/30/19 20:00 Mechanical Ventilator 09/30/19 19:28 82 09/30/19 19:10 80 18 100 Mechanical Ventilator 30 82 18 30 09/30/19 17:57 73 149/81 09/30/19 16:09 73 09/30/19 16:00 30 09/30/19 16:00 97.7 74 20 149/81 (103) 98 09/30/19 16:00 Mechanical Ventilator 09/30/19 15:22 75 18 100 Mechanical Ventilator 30 74 18 30 09/30/19 13:28 169/88 Intake and Output 09/30/19 10/01/19 19:00 07:00 Intake Total 670 ml 535 ml Output Total 250 ml Balance 420 ml 535 ml Intake Free Water 250 ml 150 ml Tube Feeding 420 ml 385 ml Output Urine Total 250 ml # Bowel Movements 2 1 Laboratory Tests 10/01/19 04:35: Sodium Level 137, Potassium Level 3.8, Chloride Level 100, Carbon Dioxide Level 25, Anion Gap 12, Blood Urea Nitrogen 139H, Creatinine 3.7H, Estimat Glomerular Filtration Rate 11.8, Glucose Level 138H, Calcium Level 8.6, Total Bilirubin 0.5 , Aspartate Amino Transf (AST/SGOT) 284H, Alanine Aminotransferase (ALT/SGPT) 297H, Alkaline Phosphatase 411H, Total Protein 7.0, Albumin 2.2L, Globulin 4.8, Albumin/Globulin Ratio 0.5L, Immunoglobulin G [Pending] Height (Feet): 5 Height (Inches): 4.00 Weight (Pounds): 112 Objective General Appearance: WD/WN, awake. looks around. no distress. thin and frail Neck: supple +trach Cardiovascular: normal rate Respiratory/Chest: rhonchi - bilaterally Abdomen: normal bowel sounds, non tender, soft, no organomegaly Edema: no edema noted Arm (L), no edema noted Arm (R), no edema noted Leg (L), no edema noted Leg (R), no edema noted Pedal (L), no edema noted Pedal (R), no edema noted Generalized Neurologic: disoriented, aphasia Skin: +excoriations Nate Beltran MD Oct 01, 2019 13:18
--- NOTE | 2019-10-01 14:51 | Surgery Progress Note ---
Surgery Progress Note Subjective Procedure Performed 1. tracheostomy 2 removal of left tube thoracostomy Additional Comments no acute events seemingly comfortable discussed with RN. plan for suture removal later. too early given lekage Objective Last 24 Hour Vital Signs Date Time Temp Pulse Resp B/P (MAP) Pulse Ox O2 Delivery O2 Flow Rate FiO2 10/01/19 12:47 67 18 100 Mechanical Ventilator 30 66 18 30 10/01/19 12:00 97.0 63 19 146/66 (92) 100 10/01/19 12:00 Mechanical Ventilator 10/01/19 12:00 30 10/01/19 11:48 63 10/01/19 11:23 63 18 100 Mechanical Ventilator 30 66 18 30 10/01/19 09:28 100 10/01/19 09:28 63 18 30 10/01/19 08:28 83 156/74 10/01/19 08:28 83 156/74 10/01/19 08:00 30 10/01/19 08:00 Mechanical Ventilator 10/01/19 08:00 98.5 83 20 156/74 (101) 100 10/01/19 07:41 77 10/01/19 07:35 81 18 100 Mechanical Ventilator 30 82 19 30 10/01/19 04:00 30 10/01/19 04:00 97.7 79 20 155/80 (105) 99 10/01/19 04:00 78 10/01/19 04:00 Mechanical Ventilator 10/01/19 03:07 77 18 100 Mechanical Ventilator 30 81 18 30 10/01/19 01:11 80 18 100 Mechanical Ventilator 30 10/01/19 00:00 97.8 83 20 156/76 (102) 100 10/01/19 00:00 Mechanical Ventilator 09/30/19 23:41 86 09/30/19 22:45 78 18 100 Mechanical Ventilator 30 80 18 30 09/30/19 20:00 30 09/30/19 20:00 98.5 83 20 156/74 (101) 100 09/30/19 20:00 Mechanical Ventilator 09/30/19 19:28 82 09/30/19 19:10 80 18 100 Mechanical Ventilator 30 82 18 30 09/30/19 17:57 73 149/81 09/30/19 16:09 73 09/30/19 16:00 30 09/30/19 16:00 97.7 74 20 149/81 (103) 98 09/30/19 16:00 Mechanical Ventilator 09/30/19 15:22 75 18 100 Mechanical Ventilator 30 74 18 30 I&O Intake and Output 09/30/19 10/01/19 19:00 07:00 Intake Total 670 ml 535 ml Output Total 250 ml Balance 420 ml 535 ml Intake Free Water 250 ml 150 ml Tube Feeding 420 ml 385 ml Output Urine Total 250 ml # Bowel Movements 2 1 Dressing: saturated Wound: other Drains: other Cardiovascular: RSR Respiratory: decreased breath sounds Abdomen: soft, non-tender, present bowel sounds Extremities: no tenderness, no cyanosis Laboratory Tests Test 10/01/19 04:35 Sodium Level 137 MMOL/L (136-145) Potassium Level 3.8 MMOL/L (3.5-5.1) Chloride Level 100 MMOL/L (98-107) Carbon Dioxide Level 25 MMOL/L (21-32) Anion Gap 12 mmol/L (5-15) Blood Urea Nitrogen 139 mg/dL (7-18) H Creatinine 3.7 MG/DL (0.55-1.30) H Estimat Glomerular Filtration Rate 11.8 mL/min (>60) Glucose Level 138 MG/DL (74-106) H Calcium Level 8.6 MG/DL (8.5-10.1) Total Bilirubin 0.5 MG/DL (0.2-1.0) Aspartate Amino Transf (AST/SGOT) 284 U/L (15-37) H Alanine Aminotransferase (ALT/SGPT) 297 U/L (12-78) H Alkaline Phosphatase 411 U/L (46-116) H Total Protein 7.0 G/DL (6.4-8.2) Albumin 2.2 G/DL (3.4-5.0) L Globulin 4.8 g/dL Albumin/Globulin Ratio 0.5 (1.0-2.7) L Immunoglobulin G Pending Assessment Post-op Diagnosis same Plan Problems: (1) Malnutrition Assessment & Plan: DAILY ESTIMATED NEEDS: Needs based on ESRD+ HD, underweight, wound/ 39.5kg 35-40 kcals/kg 8848-2459 total kcals 1.25-1.8 g protein/kg 49-71 g total protein 20-22 mL/kg 790-869 total fluid mLs NUTRITION DIAGNOSIS: * Increased kcal and protein needs r/t underweight status, HD needs, wuond healing as evidenced by pt is underweight per guidelines, ESRD, on HD, admitted non-blanching erythema wounds @ BL heels and sacrum * Swallowing difficulty R/T dysphagia as evidenced by INSPECTOR SET UP AND LAY OUT recommends temporary nonoral feeding at this time, s/p NGT insertion, on NGT feeding-> now s/p self removal, NPO. CURRENT TF:NPO PO DIET RECOMMENDATIONS: WHEN SAFE FOR ORAL DIET -> renal/ texture per INSPECTOR SET UP AND LAY OUT ENTERAL NUTRITION RECOMMENDATIONS: W/ GI access: Nepro @ 35ml/hr x 22 hrs to provide 770ml, 1386kcal, 62g prot, 560ml free water * W/ GI access, resume TF on Nepro * Initiate Nepro @ 15ml/hr x 6 hrs, advance 10ml q 4-6 hrs as tolerated to goal rate. * Hold 1 hour before and after Synthroid med * HOB over 30 degrees/ water flush per MD. ADDITIONAL RECOMMENDATIONS: 1) Calibrated bed scale wt for accurate CBW -> daily wt monitoring Per HD record: dry wt on 07/30=39.5kg (87lbs) 2) Wound care: (W/ GI access) add Nephorivte x 1 + Balta BID 3) Monitor NPO status: without GI access at this time, s/p pulling out NGT 4) Monitor for hypoglycemia while NPO 5) Monitor for continuity of HD (2) Septic arthritis Assessment & Plan: Pt presented on admission with generalized scaly rash . pt noted to be restless and scratching at skin. Bleeding from oral mucosa noted. Joint deformity noted to R shoulder. Surgical incision approximated with 11 sutures. Erythema but no exudate,or elevation in skin temp at site of incision. Historical incision R hip that is tunneled.Small amt seropurulent exudate noted. Periwound is erythematous,but no elevation in skin temp noted. No odor noted. Non-blanching erythema noted to sacrum. Perianal area is erythematous and excoriated. L heel is boggy with non-blanching erythema. R heel is soft with non-blanching erythema. No evidence of skin breakdown to all other bony prominences. Tx.plan: Cover R shoulder with Drsg and change daily and prn. Cleanse R hip wound with Saline. Apply Therahoney.Apply Cavilon Skin Barrier periwound. Cover with Optifoam drsg. Change every 3 days and prn. Apply Moisture Barrier Paste to perianal area and buttocks. Cover Sacrum with Optifoam drsg. Change every 3 days and prn. Apply Cavilon Skin Barrier to both heels. Cover each heel with Optifoam drsg. Change every 7 days and prn. APM/ELVIA Mattress overlay. Reposition at least every 2hours or as tolerated. Off-load heels with pillow. HD cath necessary HD as renal likely will need intubation 19 x 11 x 11 mm hypoechoic area in the liver adjacent to the gallbladder fossa. Although location is typical for area of focal sparing in a fatty liver, there are no findings to indicate fatty liver and this is a new finding since fairly recent previous exam. Therefore the possibility of a process such as small abscess should be considered. Atrophic echogenic kidneys Negative for gallstones or dilated bile ducts (3) Wound, open, hip or thigh with complication Assessment & Plan: slow healing will need nutritional optimization difficult ng tube peg when stable sutures removed from right shoulder comfortable wean vent may need trach (4) Abscess of right hip (5) possible septic arthritis (6) Renal failure (ARF), acute on chronic Assessment & Plan: cont HD will need tunneled cath placement okay to use fem line for now but will need change soon. line monitored and clean dressings going well (7) Pneumonia Assessment & Plan: intubated on vent support not tolerating weaning may need trach hemothorax likely after thoracentesis Chest CT noted Left chest tube placed With plan for trach chest tube can be considered but overall prognosis is very poor s/p trach left chest tub eout cxr noted and okay downgrade left pleural effusion dressings saturated will need to monitor. may need another chest tube as may not heal well on left side Anasarca, with as mentioned above diffuse edema of the soft tissues, trace ascites, and bilateral pleural effusions No hepatic abnormality to correlate with suspected small pericholecystic lesion in the liver described on recent sonogram. The lesion may be occult on noncontrast CT, may have been artifactual or may have resolved in the interim. Consider repeat sonography in a few days to assess progression No definite acute abdominal process otherwise Improved but still sizable left pleural effusion with minimal residual hemoperitoneum since prior CT scan of 09/01/2019. There is near complete atelectasis of the left lower lobe. There is a small right pleural effusion with atelectatic changes of the right lower lobe and right perihilar dense consolidation. These appear improved since a prior CT of 09/01/2019 Increased crazy paving type opacity within the right middle lobe since previous August [address], may reflect an area of increasing infiltrate, versus focal edema. There is also some dense consolidation of the perihilar right lower lobe which is improved since the previous August 31 CT Right groin temporary dialysis catheter in good position Atrophic kidneys, consistent with known history of chronic renal disease L2 compression fracture deformity, and advanced degenerative changes of the L2- L3 disc. Similar to prior study Marroquin catheter hold on repeat chest tube (8) Liver enzyme elevation Assessment & Plan: likely shock liver improving trend Camilo James Oct 01, 2019 14:51
[2019-10-01 15:51] VITALS: BP 153/77
[2019-10-01 20:28] VITALS: BP 152/77
[2019-10-01] MEDS: Dyna-Hex 2% Top Sol 2oz TOPIC SCH (20:42)
--- NOTE | 2019-10-01 22:31 | Pulmonology Progress Note ---
Assessment/Plan Assessment/Plan Pulmonary Progress Note Assessment/Plan Progress Note date and time: 09/30/19 1043 Assessment/Plan Assessment/Plan respiratory failure hypoxemia chronic renal failure toxic met encephalopathy severe protein calorie malnutrition cachexia left lung whiteout/collapse, anemia pulmonary edema + pleural effusion s/p CT placement and removal s/p trach hypernatremia PLAN trach care as is await repeat imaging for further intervention care noted and reviewed monitor for fluid retention reviewed care and continue to monitor weaning unable renal follow up and dialysis prognosis poor overall for change keep negative and monitor osmotic pressures fully dependent for now close follow up discussed elevated head and monitor ROM watch fluid status and keep negative nutrition and monitor residuals doubt any significant improvement off load as able and monitor skin exam ROM as able and monitor contractures prognosis poor for recovery will need LTAC impression, plan, and exam edited and reviewed in detail care discussed with community relations liaison - Subjective Interval Events: care noted and reviewed no distress on vent poor LOC ROS Limited/Unobtainable: Yes Condition: unchanged EKG Rhythm: Sinus Rhythm Residuals: minimal Tube Feeding Tolerated: yes Vital Signs Noted Laboratory Tests Test 09/29/19 18:15 09/30/19 06:05 Stool Occult Blood Negative (NEGATIVE) White Blood Count 12.4 K/UL (4.8-10.8) H Red Blood Count 2.69 M/UL (4.20-5.40) L Hemoglobin 8.1 G/DL (12.0-16.0) L Hematocrit 24.0 % (37.0-47.0) L Mean Corpuscular Volume 89 FL (80-99) Mean Corpuscular Hemoglobin 30.1 PG (27.0-31.0) Mean Corpuscular Hemoglobin Concent 33.8 G/DL (32.0-36.0) Red Cell Distribution Width 14.9 % (11.6-14.8) H Platelet Count 345 K/UL (150-450) Mean Platelet Volume 4.8 FL (6.5-10.1) L Neutrophils (%) (Auto) % (45.0-75.0) Lymphocytes (%) (Auto) % (20.0-45.0) Monocytes (%) (Auto) % (1.0-10.0) Eosinophils (%) (Auto) % (0.0-3.0) Basophils (%) (Auto) % (0.0-2.0) Differential Total Cells Counted 100 Neutrophils % (Manual) 73 % (45-75) Lymphocytes % (Manual) 23 % (20-45) Monocytes % (Manual) 2 % (1-10) Eosinophils % (Manual) 2 % (0-3) Basophils % (Manual) 0 % (0-2) Band Neutrophils 0 % (0-8) Platelet Estimate Adequate Platelet Morphology Normal Anisocytosis 1+ Sodium Level 138 MMOL/L (136-145) Potassium Level 3.8 MMOL/L (3.5-5.1) Chloride Level 100 MMOL/L (98-107) Carbon Dioxide Level 26 MMOL/L (21-32) Anion Gap 12 mmol/L (5-15) Blood Urea Nitrogen 124 mg/dL (7-18) H Creatinine 3.5 MG/DL (0.55-1.30) H Estimat Glomerular Filtration Rate 12.6 mL/min (>60) Glucose Level 139 MG/DL (74-106) H Calcium Level 8.7 MG/DL (8.5-10.1) Total Bilirubin 0.5 MG/DL (0.2-1.0) Aspartate Amino Transf (AST/SGOT) 676 U/L (15-37) H Alanine Aminotransferase (ALT/SGPT) 517 U/L (12-78) H Alkaline Phosphatase 579 U/L (46-116) H Total Protein 6.5 G/DL (6.4-8.2) Albumin 2.2 G/DL (3.4-5.0) L Globulin 4.3 g/dL Albumin/Globulin Ratio 0.5 (1.0-2.7) L Objective: WDWN NAD trach in place reduced breath sounds without rhonchi or wheeze [id number] without MRG NABS nontender no HSM no CCE contractures feeding tube in place no distention reduced LOC and weak nonfocal cachectic reviewed and edited Subjective ROS Limited/Unobtainable: No Allergies: Coded Allergies: VANCOMYCIN (Unverified Allergy, Unknown, 08/02/19) Objective Last 24 Hour Vital Signs Date Time Temp Pulse Resp B/P (MAP) Pulse Ox O2 Delivery O2 Flow Rate FiO2 10/01/19 21:34 61 18 30 10/01/19 20:42 74 152/77 10/01/19 20:28 97.5 70 152/77 (102) 99 10/01/19 20:00 30 10/01/19 20:00 Mechanical Ventilator 10/01/19 20:00 70 10/01/19 19:29 71 18 100 Mechanical Ventilator 30 72 18 30 10/01/19 18:23 71 153/77 10/01/19 16:56 71 18 30 10/01/19 15:52 30 10/01/19 15:52 Mechanical Ventilator 10/01/19 15:51 97.0 70 18 153/77 (102) 100 10/01/19 15:13 70 10/01/19 14:50 67 19 100 Mechanical Ventilator 30 69 18 30 10/01/19 12:47 67 18 100 Mechanical Ventilator 30 66 18 30 10/01/19 12:00 97.0 63 19 146/66 (92) 100 10/01/19 12:00 Mechanical Ventilator 10/01/19 12:00 30 10/01/19 11:48 63 10/01/19 11:23 63 18 100 Mechanical Ventilator 30 66 18 30 10/01/19 09:28 100 10/01/19 09:28 63 18 30 10/01/19 08:28 83 156/74 10/01/19 08:28 83 156/74 10/01/19 08:00 30 10/01/19 08:00 Mechanical Ventilator 10/01/19 08:00 98.5 83 20 156/74 (101) 100 10/01/19 07:41 77 10/01/19 07:35 81 18 100 Mechanical Ventilator 30 82 19 30 10/01/19 04:00 30 10/01/19 04:00 97.7 79 20 155/80 (105) 99 10/01/19 04:00 78 10/01/19 04:00 Mechanical Ventilator 10/01/19 03:07 77 18 100 Mechanical Ventilator 30 81 18 30 10/01/19 01:11 80 18 100 Mechanical Ventilator 30 10/01/19 00:00 97.8 83 20 156/76 (102) 100 10/01/19 00:00 Mechanical Ventilator 09/30/19 23:41 86 09/30/19 22:45 78 18 100 Mechanical Ventilator 30 80 18 30 Intake and Output 09/30/19 10/01/19 19:00 07:00 Intake Total 670 ml 535 ml Output Total 250 ml Balance 420 ml 535 ml Intake Free Water 250 ml 150 ml Tube Feeding 420 ml 385 ml Output Urine Total 250 ml # Bowel Movements 2 1 Laboratory Tests 10/01/19 04:35: Sodium Level 137, Potassium Level 3.8, Chloride Level 100, Carbon Dioxide Level 25, Anion Gap 12, Blood Urea Nitrogen 139H, Creatinine 3.7H, Estimat Glomerular Filtration Rate 11.8, Glucose Level 138H, Calcium Level 8.6, Total Bilirubin 0.5 , Aspartate Amino Transf (AST/SGOT) 284H, Alanine Aminotransferase (ALT/SGPT) 297H, Alkaline Phosphatase 411H, Total Protein 7.0, Albumin 2.2L, Globulin 4.8, Albumin/Globulin Ratio 0.5L, Immunoglobulin G [Pending] Current Medications Medications (Trade) Dose Ordered Sig/Javier Route PRN Reason Start Time Stop Time Status Last Admin Dose Admin Acetylcysteine (Mucomyst) 100 mg Q4HRT [facility] 08/31/19 19:00 11/29/19 18:59 10/01/19 19:29 Albuterol/ Ipratropium (Albuterol/ Ipratropium) 3 ml Q4HRT [facility] 09/22/19 15:00 12/09/19 14:59 10/01/19 19:29 Amlodipine Besylate (Norvasc) 5 mg BID ORAL 09/25/19 09:00 10/25/19 08:59 10/01/19 18:23 Chlorhexidine Gluconate (Nae-Hex 2%) 1 applic DAILY@2000 TOPIC 09/17/19 20:00 12/16/19 19:59 10/01/19 20:42 Clonidine HCl (Catapres Tab) 0.1 mg Q4H PRN ORAL For High Blood Pressure 09/22/19 21:00 12/21/19 20:59 09/30/19 13:28 Dextrose (Dextrose 50%) 25 ml Q30M PRN IV Hypoglycemia 09/02/19 06:15 12/01/19 06:14 09/04/19 12:11 Dextrose (Dextrose 50%) 50 ml Q30M PRN IV Hypoglycemia 09/02/19 06:15 12/01/19 06:14 Lansoprazole (Prevacid) 30 mg DAILY GT 09/27/19 09:00 10/27/19 08:59 10/01/19 08:29 Levothyroxine Sodium (Synthroid) 125 mcg DAILY@0630 ORAL 09/22/19 06:30 10/22/19 06:29 10/01/19 06:08 Metoprolol Tartrate (Lopressor) 25 mg Q12HR ORAL 10/01/19 09:00 12/30/19 08:59 10/01/19 20:42 Psyllium Hydrophilic Mucilloid (Metamucil) 1 pkt DAILY ORAL 09/22/19 15:00 10/22/19 14:59 10/01/19 08:29 Sevelamer Carbonate (Renvela) 800 mg Q8HR NG 09/25/19 14:00 12/24/19 13:59 10/01/19 13:02 Abel Graham MD Oct 01, 2019 22:31
[2019-10-02] VITALS: BP 143/69
[2019-10-02] MEDS: Albuterol/Ipratropium 3ml neb HHN SCH ×6 (03:25→23:40)
[2019-10-02 04:09] VITALS: BP 124/76
--- NOTE | 2019-10-02 04:29 | Progress Note ---
DATE: 10/01/2019 CARDIOLOGY PROGRESS NOTE SUBJECTIVE: The patient remains on ventilator support. Responds with eye contact. Tolerating feedings. PHYSICAL EXAMINATION: VITAL SIGNS: Blood pressure 146/66, heart rate 63, respiratory rate 19. LUNGS: Bilateral breath sounds with few rhonchi. Thin secretions. CARDIAC: Regular rhythm and rate. Normal S1, S2. ABDOMEN: Soft. EXTREMITIES: No edema. LABORATORY DATA: White count 12.4, hemoglobin 8.1. Liver function studies have decreased today after a bump yesterday. BUN 139, creatinine 3.7, and albumin 2.2. IMPRESSION: 1. Persisting and labile transaminitis, etiology unclear. Slight improvement was noted off hydralazine, but that worsened yesterday. 2. End-stage renal disease. 3. Hypertensive heart disease. 4. Chronic diastolic congestive heart failure. 5. Severe protein-calorie malnutrition with G-tube ventilator-dependent respiratory failure, status post trach. PLAN: 1. Once liver function studies stabilize and etiology ascertained, discharge to subacute facility will be planed. 2. The patient remains on thyroid replacement, on current cardiovascular regimen without change. 3. Anemia, we will warrant close monitoring of blood counts. She is likely not weanable at this time. Abel Stubbs M.D. DR: SAVANNA JOB#: [id number] CC:
[2019-10-02] MEDS: Renvela 800mg Pkt NG SCH ×3 (06:24→23:28)
[2019-10-02] MEDS: Levothyroxine 125mcg tab ORAL SCH (06:25)
[2019-10-02 06:45] LABS: BASOPHILS % (AUTO) 0.6 % (0.0-2.0); EOSINOPHILS % (AUTO) 1.6 % (0.0-3.0); HEMATOCRIT 26.8 % (37.0-47.0); HEMOGLOBIN 8.9 G/DL (12.0-16.0); LYMPHOCYTES % (AUTO) 26.7 % (20.0-45.0); MEAN CORPUSCULAR VOLUME 90 FL (80-99); MONOCYTES % (AUTO) 3.7 % (1.0-10.0); NEUTROPHILS % (AUTO) 67.4 % (45.0-75.0); PLATELET COUNT 273 K/UL (150-450); RED BLOOD COUNT 2.99 M/UL (4.20-5.40); RED CELL DISTRIBUTION WIDTH 14.8 % (11.6-14.8)
[2019-10-02 07:08] LABS: ALANINE AMINOTRANSFERASE 332 U/L (12-78); ALBUMIN 2.4 G/DL (3.4-5.0); ALBUMIN/GLOBULIN RATIO 0.4 (1.0-2.7); ALKALINE PHOSPHATASE 490 U/L (46-116); ANION GAP 15 mmol/L (5-15); ASPARTATE AMINO TRANSFERASE 306 U/L (15-37); BILIRUBIN,TOTAL 0.6 MG/DL (0.2-1.0); BLOOD UREA NITROGEN 156 mg/dL (7-18); CALCIUM 8.6 MG/DL (8.5-10.1); CARBON DIOXIDE 24 MMOL/L (21-32); CHLORIDE 100 MMOL/L (98-107); CREATININE 3.9 MG/DL (0.55-1.30); POTASSIUM 3.7 MMOL/L (3.5-5.1); SODIUM 139 MMOL/L (136-145)
[2019-10-02 07:19] LABS: PHOSPHORUS 5.1 MG/DL (2.5-4.9)
[2019-10-02 08:00] VITALS: BP 166/77
--- NOTE | 2019-10-02 08:36 | General Progress Note ---
Assessment/Plan Problem List: (1) Hypothyroid ICD Codes: E03.9 - Hypothyroidism, unspecified SNOMED: 73255860 (2) ESRD (end stage renal disease) on dialysis ICD Codes: N18.6 - End stage renal disease; Z99.2 - Dependence on renal dialysis SNOMED: 971278962 (3) Hypotension ICD Codes: I95.9 - Hypotension, unspecified SNOMED: 43891750 Qualifiers: Qualified Codes: I95.3 - Hypotension of hemodialysis (4) Pneumonia ICD Codes: J18.9 - Pneumonia, unspecified organism SNOMED: 104902209 Qualifiers: Qualified Codes: J18.9 - Pneumonia, unspecified organism (5) Diabetes mellitus ICD Codes: E11.9 - Type 2 diabetes mellitus without complications SNOMED: 29625820 Status: stable, not improved, unchanged, deteriorating Assessment/Plan: continue Levothyroxine tablet 125 mcg daily - TSH has improved repeat TSH, free 4 next week Subjective ROS Limited/Unobtainable: Yes Allergies: Coded Allergies: VANCOMYCIN (Unverified Allergy, Unknown, 08/02/19) Subjective events noted interval notes reviewed on vent on TF TSH has improved Objective Last 24 Hour Vital Signs Date Time Temp Pulse Resp B/P (MAP) Pulse Ox O2 Delivery O2 Flow Rate FiO2 10/02/19 08:30 67 19 30 10/02/19 08:00 Mechanical Ventilator 10/02/19 08:00 98.0 65 18 166/77 (106) 100 10/02/19 08:00 30 10/02/19 08:00 68 10/02/19 07:15 63 18 100 Mechanical Ventilator 30 64 18 30 10/02/19 05:37 68 19 30 10/02/19 04:09 97.0 65 18 124/76 (92) 96 10/02/19 04:00 68 10/02/19 04:00 Mechanical Ventilator 10/02/19 04:00 30 10/02/19 03:26 67 18 100 Mechanical Ventilator 30 69 18 30 10/02/19 01:42 72 19 30 10/02/19 00:00 97.6 74 18 143/69 (93) 99 10/02/19 00:00 Mechanical Ventilator 10/01/19 23:57 64 10/01/19 22:37 66 18 100 Mechanical Ventilator 30 64 18 30 10/01/19 21:34 61 18 30 10/01/19 20:42 74 152/77 10/01/19 20:28 97.5 70 152/77 (102) 99 10/01/19 20:00 30 10/01/19 20:00 Mechanical Ventilator 10/01/19 20:00 70 10/01/19 19:29 71 18 100 Mechanical Ventilator 30 72 18 30 10/01/19 18:23 71 153/77 10/01/19 16:56 71 18 30 10/01/19 15:52 30 10/01/19 15:52 Mechanical Ventilator 10/01/19 15:51 97.0 70 18 153/77 (102) 100 10/01/19 15:13 70 10/01/19 14:50 67 19 100 Mechanical Ventilator 30 69 18 30 10/01/19 12:47 67 18 100 Mechanical Ventilator 30 66 18 30 10/01/19 12:00 97.0 63 19 146/66 (92) 100 10/01/19 12:00 Mechanical Ventilator 10/01/19 12:00 30 10/01/19 11:48 63 10/01/19 11:23 63 18 100 Mechanical Ventilator 30 66 18 30 10/01/19 09:28 100 10/01/19 09:28 63 18 30 Intake and Output 10/01/19 10/02/19 19:00 07:00 Intake Total 585 ml 425 ml Output Total 325 ml 200 ml Balance 260 ml 225 ml Intake Free Water 200 ml 110 ml Tube Feeding 385 ml 315 ml Output Urine Total 325 ml 200 ml # Bowel Movements 2 5 Laboratory Tests 10/02/19 06:10: White Blood Count 12.0H, Red Blood Count 2.99L, Hemoglobin 8.9L, Hematocrit 26.8L, Mean Corpuscular Volume 90, Mean Corpuscular Hemoglobin 29.8, Mean Corpuscular Hemoglobin Concent 33.2, Red Cell Distribution Width 14.8, Platelet Count 273, Mean Platelet Volume 4.9L, Neutrophils (%) (Auto) 67.4, Lymphocytes ( %) (Auto) 26.7, Monocytes (%) (Auto) 3.7, Eosinophils (%) (Auto) 1.6, Basophils (%) (Auto) 0.6, Sodium Level 139, Potassium Level 3.7, Chloride Level 100, Carbon Dioxide Level 24, Anion Gap 15, Blood Urea Nitrogen 156H, Creatinine 3.9H , Estimat Glomerular Filtration Rate 11.1, Glucose Level 181H, Calcium Level 8.6 , Phosphorus Level 5.1H, Magnesium Level 2.8H, Total Bilirubin 0.6, Gamma Glutamyl Transpeptidase 138H, Aspartate Amino Transf (AST/SGOT) 306H, Alanine Aminotransferase (ALT/SGPT) 332H, Alkaline Phosphatase 490H, Total Protein 7.8, Albumin 2.4L, Globulin 5.4, Albumin/Globulin Ratio 0.4L Height (Feet): 5 Height (Inches): 4.00 Weight (Pounds): 112 General Appearance: no apparent distress, cachetic Neck: normal alignment Cardiovascular: normal rate Respiratory/Chest: lungs clear Abdomen: normal bowel sounds Objective Current Medications Medications (Trade) Dose Ordered Sig/Javier Route PRN Reason Start Time Stop Time Status Last Admin Dose Admin Acetylcysteine (Mucomyst) 100 mg Q4HRT N 08/31/19 19:00 11/29/19 18:59 10/02/19 07:25 Albuterol/ Ipratropium (Albuterol/ Ipratropium) 3 ml Q4HRT N 09/22/19 15:00 12/09/19 14:59 10/02/19 07:25 Amlodipine Besylate (Norvasc) 5 mg BID ORAL 09/25/19 09:00 10/25/19 08:59 10/01/19 18:23 Chlorhexidine Gluconate (Nae-Hex 2%) 1 applic DAILY@2000 TOPIC 09/17/19 20:00 12/16/19 19:59 10/01/19 20:42 Clonidine HCl (Catapres Tab) 0.1 mg Q4H PRN ORAL For High Blood Pressure 09/22/19 21:00 12/21/19 20:59 09/30/19 13:28 Dextrose (Dextrose 50%) 25 ml Q30M PRN IV Hypoglycemia 09/02/19 06:15 12/01/19 06:14 09/04/19 12:11 Dextrose (Dextrose 50%) 50 ml Q30M PRN IV Hypoglycemia 09/02/19 06:15 12/01/19 06:14 Lansoprazole (Prevacid) 30 mg DAILY GT 09/27/19 09:00 10/27/19 08:59 10/01/19 08:29 Levothyroxine Sodium (Synthroid) 125 mcg DAILY@0630 ORAL 09/22/19 06:30 10/22/19 06:29 10/02/19 06:25 Metoprolol Tartrate (Lopressor) 25 mg Q12HR ORAL 10/01/19 09:00 12/30/19 08:59 10/01/19 20:42 Psyllium Hydrophilic Mucilloid (Metamucil) 1 pkt DAILY ORAL 09/22/19 15:00 10/22/19 14:59 10/01/19 08:29 Sevelamer Carbonate (Renvela) 800 mg Q8HR NG 09/25/19 14:00 12/24/19 13:59 10/02/19 06:24 Antonio Jacome MD Oct 02, 2019 08:36
[2019-10-02] MEDS: Metamucil Pkt ORAL SCH (08:51)
--- NOTE | 2019-10-02 09:31 | Nephrology Progress Note ---
Assessment/Plan Problem List: (1) Liver enzyme elevation Assessment: Acute (2) ESRD (end stage renal disease) on dialysis (3) Malnutrition (4) Anemia in CKD (chronic kidney disease) (5) Hypotension (6) Thrombocytopenia (7) Sepsis Assessment: klebsiella in blood Assessment -Early sepsis with shock. -Healthcare-associated pneumonia. -Severe protein-calorie malnutrition. -Thrombocytopenia. - End-stage renal disease. - History of hypertension. - Bradycardia. - HypoThyroid Plan Labs reviewed Smooth muscle antibody positive, Ig G ordered pending Liver enzymes rising, hepatitis panel ordered- today's labs indicates lowering of liver enzymes Tracheostomy September 07 Last dialysis September 26 Chest tube on the left side was put in on September 01 was discontinued September 07 Patient transfused 3 units of packed RBCs for low hemoglobin Remains full code Blood pressure fluctuating, will start hydralazine via NG tube for blood pressure Magnesium and potassium supplement intravenously as needed Patient underwent PEG placement August 16 patient remains intubated on ventilator Discussed with RN Aim to wean from ventilator or consider tracheostomy Permacath was removed on August 12 Dialysis 08/11 Transfusion as needed Patient had hematemesis meds IV as possible Surveillance blood cultures tomorrow Plan to put the permacath back in on Thursday if cultures are negative keep BP and BS in check Inflammatory markers per orders Subjective ROS Limited/Unobtainable: Yes Objective Objective Last 24 Hour Vital Signs Date Time Temp Pulse Resp B/P (MAP) Pulse Ox O2 Delivery O2 Flow Rate FiO2 10/02/19 08:52 67 166/77 10/02/19 08:51 67 166/77 10/02/19 08:30 67 19 30 10/02/19 08:00 Mechanical Ventilator 10/02/19 08:00 98.0 65 18 166/77 (106) 100 10/02/19 08:00 30 10/02/19 08:00 68 10/02/19 07:15 63 18 100 Mechanical Ventilator 30 64 18 30 10/02/19 05:37 68 19 30 10/02/19 04:09 97.0 65 18 124/76 (92) 96 10/02/19 04:00 68 10/02/19 04:00 Mechanical Ventilator 10/02/19 04:00 30 10/02/19 03:26 67 18 100 Mechanical Ventilator 30 69 18 30 10/02/19 01:42 72 19 30 4/19/20 00:00 97.6 74 18 143/69 (93) 99 10/02/19 00:00 Mechanical Ventilator 10/01/19 23:57 64 10/01/19 22:37 66 18 100 Mechanical Ventilator 30 64 18 30 10/01/19 21:34 61 18 30 10/01/19 20:42 74 152/77 10/01/19 20:28 97.5 70 152/77 (102) 99 10/01/19 20:00 30 10/01/19 20:00 Mechanical Ventilator 10/01/19 20:00 70 10/01/19 19:29 71 18 100 Mechanical Ventilator 30 72 18 30 10/01/19 18:23 71 153/77 10/01/19 16:56 71 18 30 10/01/19 15:52 30 10/01/19 15:52 Mechanical Ventilator 10/01/19 15:51 97.0 70 18 153/77 (102) 100 10/01/19 15:13 70 10/01/19 14:50 67 19 100 Mechanical Ventilator 30 69 18 30 10/01/19 12:47 67 18 100 Mechanical Ventilator 30 66 18 30 10/01/19 12:00 97.0 63 19 146/66 (92) 100 10/01/19 12:00 Mechanical Ventilator 10/01/19 12:00 30 10/01/19 11:48 63 10/01/19 11:23 63 18 100 Mechanical Ventilator 30 66 18 30 Intake and Output 10/01/19 10/02/19 19:00 07:00 Intake Total 585 ml 425 ml Output Total 325 ml 200 ml Balance 260 ml 225 ml Intake Free Water 200 ml 110 ml Tube Feeding 385 ml 315 ml Output Urine Total 325 ml 200 ml # Bowel Movements 2 5 Laboratory Tests 10/02/19 06:10: White Blood Count 12.0H, Red Blood Count 2.99L, Hemoglobin 8.9L, Hematocrit 26.8L, Mean Corpuscular Volume 90, Mean Corpuscular Hemoglobin 29.8, Mean Corpuscular Hemoglobin Concent 33.2, Red Cell Distribution Width 14.8, Platelet Count 273, Mean Platelet Volume 4.9L, Neutrophils (%) (Auto) 67.4, Lymphocytes ( %) (Auto) 26.7, Monocytes (%) (Auto) 3.7, Eosinophils (%) (Auto) 1.6, Basophils (%) (Auto) 0.6, Sodium Level 139, Potassium Level 3.7, Chloride Level 100, Carbon Dioxide Level 24, Anion Gap 15, Blood Urea Nitrogen 156H, Creatinine 3.9H , Estimat Glomerular Filtration Rate 11.1, Glucose Level 181H, Calcium Level 8.6 , Phosphorus Level 5.1H, Magnesium Level 2.8H, Total Bilirubin 0.6, Gamma Glutamyl Transpeptidase 138H, Aspartate Amino Transf (AST/SGOT) 306H, Alanine Aminotransferase (ALT/SGPT) 332H, Alkaline Phosphatase 490H, Total Protein 7.8, Albumin 2.4L, Globulin 5.4, Albumin/Globulin Ratio 0.4L Height (Feet): 5 Height (Inches): 4.00 Weight (Pounds): 112 General Appearance: no apparent distress, lethargic EENT: other - Trached and vented Cardiovascular: normal rate Respiratory/Chest: decreased breath sounds Abdomen: other - GT available feeding in process Objective no change William Blackwood MD Oct 02, 2019 09:31
--- NOTE | 2019-10-02 09:55 | General Progress Note ---
Assessment/Plan Problem List: (1) Failure to thrive (0-17) ICD Codes: R62.51 - Failure to thrive (0-17) SNOMED: 125140804 (2) Hypertensive kidney disease ICD Codes: I12.9 - Hypertensive chronic kidney disease with stage 1 through stage 4 chronic kidney disease, or unspecified chronic kidney disease SNOMED: 97279311 (3) Pneumonia ICD Codes: J18.9 - Pneumonia, unspecified organism SNOMED: 088687845 Qualifiers: Qualified Codes: J18.9 - Pneumonia, unspecified organism (4) ESRD (end stage renal disease) ICD Codes: N18.6 - End stage renal disease SNOMED: 80858477 (5) Septic arthritis ICD Codes: M00.9 - Pyogenic arthritis, unspecified SNOMED: 099461591 (6) Thrombocytopenia ICD Codes: D69.6 - Thrombocytopenia, unspecified SNOMED: 025135341 (7) Hypotension ICD Codes: I95.9 - Hypotension, unspecified SNOMED: 38174468 Qualifiers: Qualified Codes: I95.3 - Hypotension of hemodialysis (8) Malnutrition ICD Codes: E46 - Unspecified protein-calorie malnutrition SNOMED: 49297182 Status: stable, not improved, unchanged, deteriorating Assessment/Plan: Continue vent support. Wean as able. Will discuss with pulmonary if patient could be weaned to trach collar.Suctioning and pulmonary toilet. Continue G-tube feedings. Monitor residuals Continue current blood pressure regimen with close monitoring of blood pressure. Hemodialysis with ultrafiltration per nephrology. Turn every 2 hours and good skin care. monitor labs/lfts monitor h/h may need transfusion dc hydralazine(per GI can cause transaminitis) Discharge planning in progress Subjective ROS Limited/Unobtainable: No Constitutional: Reports: malaise, weakness HEENT: Reports: no symptoms Cardiovascular: Reports: no symptoms Respiratory: Reports: shortness of breath, sputum Gastrointestinal/Abdominal: Reports: difficulty swallowing Genitourinary: Reports: no symptoms Neurologic/Psychiatric: Reports: anxiety, pre-existing deficit Endocrine: Reports: no symptoms Hematologic/Lymphatic: Reports: anemia Allergies: Coded Allergies: VANCOMYCIN (Unverified Allergy, Unknown, 08/02/19) All Systems: reviewed and negative except above Subjective There were no overnight events. ?itching. Patient remained stable on the ventilator. She occasionally opens her eyes. Tolerating feedings. LFTS pending. h/h stable. no signs of bleeding. no med changes, Objective Last 24 Hour Vital Signs Date Time Temp Pulse Resp B/P (MAP) Pulse Ox O2 Delivery O2 Flow Rate FiO2 10/02/19 08:52 67 166/77 10/02/19 08:51 67 166/77 10/02/19 08:30 67 19 30 10/02/19 08:00 Mechanical Ventilator 10/02/19 08:00 98.0 65 18 166/77 (106) 100 10/02/19 08:00 30 10/02/19 08:00 68 10/02/19 07:15 63 18 100 Mechanical Ventilator 30 64 18 30 10/02/19 05:37 68 19 30 10/02/19 04:09 97.0 65 18 124/76 (92) 96 10/02/19 04:00 68 10/02/19 04:00 Mechanical Ventilator 10/02/19 04:00 30 10/02/19 03:26 67 18 100 Mechanical Ventilator 30 69 18 30 10/02/19 01:42 72 19 30 10/02/19 00:00 97.6 74 18 143/69 (93) 99 10/02/19 00:00 Mechanical Ventilator 10/01/19 23:57 64 10/01/19 22:37 66 18 100 Mechanical Ventilator 30 64 18 30 10/01/19 21:34 61 18 30 10/01/19 20:42 74 152/77 10/01/19 20:28 97.5 70 152/77 (102) 99 10/01/19 20:00 30 10/01/19 20:00 Mechanical Ventilator 10/01/19 20:00 70 10/01/19 19:29 71 18 100 Mechanical Ventilator 30 72 18 30 10/01/19 18:23 71 153/77 10/01/19 16:56 71 18 30 10/01/19 15:52 30 10/01/19 15:52 Mechanical Ventilator 10/01/19 15:51 97.0 70 18 153/77 (102) 100 10/01/19 15:13 70 10/01/19 14:50 67 19 100 Mechanical Ventilator 30 69 18 30 10/01/19 12:47 67 18 100 Mechanical Ventilator 30 66 18 30 10/01/19 12:00 97.0 63 19 146/66 (92) 100 10/01/19 12:00 Mechanical Ventilator 10/01/19 12:00 30 10/01/19 11:48 63 10/01/19 11:23 63 18 100 Mechanical Ventilator 30 66 18 30 Intake and Output 10/01/19 10/02/19 19:00 07:00 Intake Total 585 ml 425 ml Output Total 325 ml 200 ml Balance 260 ml 225 ml Intake Free Water 200 ml 110 ml Tube Feeding 385 ml 315 ml Output Urine Total 325 ml 200 ml # Bowel Movements 2 5 Laboratory Tests 10/02/19 06:10: White Blood Count 12.0H, Red Blood Count 2.99L, Hemoglobin 8.9L, Hematocrit 26.8L, Mean Corpuscular Volume 90, Mean Corpuscular Hemoglobin 29.8, Mean Corpuscular Hemoglobin Concent 33.2, Red Cell Distribution Width 14.8, Platelet Count 273, Mean Platelet Volume 4.9L, Neutrophils (%) (Auto) 67.4, Lymphocytes ( %) (Auto) 26.7, Monocytes (%) (Auto) 3.7, Eosinophils (%) (Auto) 1.6, Basophils (%) (Auto) 0.6, Sodium Level 139, Potassium Level 3.7, Chloride Level 100, Carbon Dioxide Level 24, Anion Gap 15, Blood Urea Nitrogen 156H, Creatinine 3.9H , Estimat Glomerular Filtration Rate 11.1, Glucose Level 181H, Calcium Level 8.6 , Phosphorus Level 5.1H, Magnesium Level 2.8H, Total Bilirubin [Pending], Direct Bilirubin [Pending], Gamma Glutamyl Transpeptidase 138H, Aspartate Amino Transf (AST/SGOT) [Pending], Alanine Aminotransferase (ALT/SGPT) [Pending], Alkaline Phosphatase [Pending], C-Reactive Protein, Quantitative [Pending], Total Protein [Pending], Albumin [Pending], Globulin 5.4, Albumin/Globulin Ratio 0.4L Height (Feet): 5 Height (Inches): 4.00 Weight (Pounds): 112 Objective General Appearance: WD/WN, awake. looks around. no distress. thin and frail Neck: supple +trach Cardiovascular: normal rate Respiratory/Chest: rhonchi - bilaterally Abdomen: normal bowel sounds, non tender, soft, no organomegaly Edema: no edema noted Arm (L), no edema noted Arm (R), no edema noted Leg (L), no edema noted Leg (R), no edema noted Pedal (L), no edema noted Pedal (R), no edema noted Generalized Neurologic: disoriented, aphasia Skin: +excoriations Nate Beltran MD Oct 02, 2019 09:55
[2019-10-02 09:58] LABS: ALANINE AMINOTRANSFERASE 415 U/L (12-78); ALBUMIN 2.5 G/DL (3.4-5.0); ALKALINE PHOSPHATASE 497 U/L (46-116); ASPARTATE AMINO TRANSFERASE 313 U/L (15-37); BILIRUBIN,DIRECT 0.2 MG/DL (0.0-0.3); BILIRUBIN,TOTAL 0.5 MG/DL (0.2-1.0)
--- NOTE | 2019-10-02 10:20 | Hematology/Onc Progress Note ---
Assessment/Plan Assessment/Plan # Thrombocytopenia ow THROMBOCYTOSIS - potential causes multifactorial, evaluate liver and viral etiologies to begin, in this case due to sepsis with septic shock also with cirrhosis and liver disease --> Hep panel and HIV ordered --> neg --> US abd to evaluate for cirrhosis and hsm ordered --> reviewed --> Peripheral smear ordered to evaluate for blasts /schistocytes --> none noted --> abx and other meds have been reviewed --> ok for ppx if plt >50k w/ either heparin or lovenox --> Transfuse if Plt < 20k and fever, or if Plt < 10k without fever --> okay for permacath change once plt better--> for 08/14 --> plt trend: 43-->83-->237k-->292-->341-->315-->388 -->444-->530-->252k-->344- >529->525k-->273 # Anemia of chronic disease due to underlying chronic medical issues, multifactorial v Gi bleed --> Anemia workup has been ordered, rule out gi bleed --> No evidence of hemolysis is noted, peripheral smear has been reviewed. --> Hgb goal >7. Transfuse prn. --> Epogen has been started --> HOLD OFF IRON ferritin is >1000 --> Medications have been reviewed --> low threshold for gi evaluation in case has occult + --> hgb 9-->6.7-->9.2 -->10.5-->10.6 -->10.7-->10-->10.5-->9.8-->10.4-->9.5--> 3.6-->9.6-->9.7-->10-->10.3-->11->9.9->8.3->8.7-->8.1-->8.9 --> blood tx: 08/11, 08/31 --> CT Chest r/o hemothorax --> does show confirmation of a large left hemothorax. Complete atelectasis of the left lower lobe and partial left upper lobe atelectasis demonstrated. Mild rightward shift of the heart and mediastinum. --> stool ob negative # Sepsis with shock. --> abx as per id, recs noted--> off abx --> pressors as needed # Healthcare-associated pneumonia. --> recs reviewed --> abx: jung/micafungin-->jung-->off --> 08/24 us chest: moderate left pleural effusion # Severe protein-calorie malnutrition. --> nutritional support # End-stage renal disease --> had as renal hd --> with permacath # History of hypertension. --> per cards, now with Bradycardia. # Resp failure s/p vent/trach # HypoThyroid # Ngt feedings # Dvt ppx scd's The timing of this note does not necessarily reflect the time of the patient was seen. Greatly appreciate consultation. Subjective Allergies: Coded Allergies: VANCOMYCIN (Unverified Allergy, Unknown, 08/02/19) Subjective 08/11: no bleeding or chills, labs reviewed, no major bleeding, plt less than 50k 08/12: icu, s/p blood, hgb improved to 9.2, 08/14: icu, pending consent for thora and permacath, labs reviewed 08/15: new permacath placed, no bleeding, for hd, plt much improved, started lovenox sq 08/16: ett to be adjusted, bp on high end, micafungin started, possible bronch 08/17: weaning as per pulm, no events otherwise, labs noted 08/18: no events no bleeding, remains confused on vent, for hd 08/20: icu, failed to wean, labs reviewed, jung 08/21: resting in bed, no overnight events, labs reviewed 08/22: awake, confused, restraints, no overnight events 08/23: no events, no bleeding, on ppi bid 08/24: icu, failed to wean, labs reviewed 08/25: no overnight events, us chest, restraints, afebrile 08/26 difficult in weaning, nad, seen by surg, pulm labs noted 08/27 awake on restraints, thoracentesis for am, labs reviewed 08/29 no bleeding, no night sweats, no major changes, on ppi bid 08/30 no major events, remains on vent, no bleeding, dw pcp 08/31 hgb dropped to 3.6, has been transfused with prbc, in icu, david Rn, ct chest pend 09/01 no major events, no bleeding, labs noted, hgb remains low, hgb 9.6 09/03 lethargic, left chest tube dry/intact, off abx, vent 09/04 remains on a vent, synthroid, labs reviewed 09/05 awake and alert, no acute events, hgb 9.8, no new orders 09/06 no bleeding or chills, labs noted, no major events overnight, david rn 09/07 no events, no night sweats, no bleeding, no fc, remains agitated in the am 09/08 remains in the icu, trach was done, on vent, abx off, on epo 09/10 transferred to sdu, restraints, vent, labs reviewed 09/11 tube feeds have been ongoing, no f/c, labs reviewed 09/12 no events, no bleeding, no night sweats, hgb 10 09/13 tsh is improved, remains confused, hgb is 11, no bleeding 09/14 no events, no bleeding, labs noted, vitals stable 09/15 confused, no acute events, restraints, dc planning 09/17 no new changes, no recent labs, placement pending 09/18 no events, no bleeding, no night sweats, fevers 09/19 nonverbal, vent, elevated bp, off abx 09/20 labs reviewed, david rn, no bleeding, meds reviewed 09/21 is a+o x 1, nonverbal, no bleeding, labs reviewed, no night sweats 09/22 no major events, no bleeding, no night sweats, no f/c, labs noted hgb 10.5 09/25 no events, no bleeding, labs noted, cbc reviewed 09/26 no events, with gtube feeds ongoing and with event, labs noted 09/27 labs have been reviewed, no night sweats, no fc 09/28 labs reviewed, no night sweats, hgb lower, but holding off on transfusion 09/29 alert, stool ob negative, h/h stable, dc planning 10/01 sdu, tsh improved, labs reviewed, elevated bp Objective Objective Current Medications Medications (Trade) Dose Ordered Sig/Javier Route PRN Reason Start Time Stop Time Status Last Admin Dose Admin Acetylcysteine (Mucomyst) 100 mg Q4HRT HHN 08/31/19 19:00 11/29/19 18:59 10/02/19 07:25 Albuterol/ Ipratropium (Albuterol/ Ipratropium) 3 ml Q4HRT N 09/22/19 15:00 12/09/19 14:59 10/02/19 07:25 Amlodipine Besylate (Norvasc) 5 mg BID ORAL 09/25/19 09:00 10/25/19 08:59 10/02/19 08:52 Chlorhexidine Gluconate (Nae-Hex 2%) 1 applic DAILY@2000 TOPIC 09/17/19 20:00 12/16/19 19:59 10/01/19 20:42 Clonidine HCl (Catapres Tab) 0.1 mg Q4H PRN ORAL For High Blood Pressure 09/22/19 21:00 12/21/19 20:59 09/30/19 13:28 Dextrose (Dextrose 50%) 25 ml Q30M PRN IV Hypoglycemia 09/02/19 06:15 12/01/19 06:14 09/04/19 12:11 Dextrose (Dextrose 50%) 50 ml Q30M PRN IV Hypoglycemia 09/02/19 06:15 12/01/19 06:14 Lansoprazole (Prevacid) 30 mg DAILY GT 09/27/19 09:00 10/27/19 08:59 10/02/19 08:51 Levothyroxine Sodium (Synthroid) 125 mcg DAILY@0630 ORAL 09/22/19 06:30 10/22/19 06:29 10/02/19 06:25 Metoprolol Tartrate (Lopressor) 25 mg Q12HR ORAL 10/01/19 09:00 12/30/19 08:59 10/02/19 08:51 Psyllium Hydrophilic Mucilloid (Metamucil) 1 pkt DAILY ORAL 09/22/19 15:00 10/22/19 14:59 10/02/19 08:51 Sevelamer Carbonate (Renvela) 800 mg Q8HR NG 09/25/19 14:00 12/24/19 13:59 10/02/19 06:24 Last 24 Hour Vital Signs Date Time Temp Pulse Resp B/P (MAP) Pulse Ox O2 Delivery O2 Flow Rate FiO2 10/02/19 08:52 67 166/77 10/02/19 08:51 67 166/77 20 08:30 67 19 30 20 08:00 Mechanical Ventilator 10/02/19 08:00 98.0 65 18 166/77 (106) 100 20 08:00 30 20 08:00 68 10/02/19 07:15 63 18 100 Mechanical Ventilator 30 64 18 30 10/02/19 05:37 68 19 30 10/02/19 04:09 97.0 65 18 124/76 (92) 96 10/02/19 04:00 68 10/02/19 04:00 Mechanical Ventilator 10/02/19 04:00 30 10/02/19 03:26 67 18 100 Mechanical Ventilator 30 69 18 30 10/02/19 01:42 72 19 30 10/02/19 00:00 97.6 74 18 143/69 (93) 99 10/02/19 00:00 Mechanical Ventilator 10/01/19 23:57 64 20 22:37 66 18 100 Mechanical Ventilator 30 64 18 30 10/01/19 21:34 61 18 30 20 20:42 74 152/77 20 20:28 97.5 70 152/77 (102) 99 20 20:00 30 20 20:00 Mechanical Ventilator 10/01/19 20:00 70 20 19:29 71 18 100 Mechanical Ventilator 30 72 18 30 1820 18:23 71 153/77 20 16:56 71 18 30 20 15:52 30 20 15:52 Mechanical Ventilator 20 15:51 97.0 70 18 153/77 (102) 100 20 15:13 70 20 14:50 67 19 100 Mechanical Ventilator 30 69 18 30 20 12:47 67 18 100 Mechanical Ventilator 30 66 18 30 20 12:00 97.0 63 19 146/66 (92) 100 1820 12:00 Mechanical Ventilator 20 12:00 30 1820 11:48 63 1820 11:23 63 18 100 Mechanical Ventilator 30 66 18 30 20 09:28 100 4/18/20 09:28 63 18 30 10/01/19 08:28 83 156/74 10/01/19 08:28 83 156/74 10/01/19 08:00 30 10/01/19 08:00 Mechanical Ventilator 10/01/19 08:00 98.5 83 20 156/74 (101) 100 10/01/19 07:41 77 10/01/19 07:35 81 18 100 Mechanical Ventilator 30 82 19 30 10/01/19 04:00 30 10/01/19 04:00 97.7 79 20 155/80 (105) 99 10/01/19 04:00 78 10/01/19 04:00 Mechanical Ventilator 10/01/19 03:07 77 18 100 Mechanical Ventilator 30 81 18 30 10/01/19 01:11 80 18 100 Mechanical Ventilator 30 10/01/19 00:00 97.8 83 20 156/76 (102) 100 10/01/19 00:00 Mechanical Ventilator 09/30/19 23:41 86 09/30/19 22:45 78 18 100 Mechanical Ventilator 30 80 18 30 09/30/19 20:00 30 09/30/19 20:00 98.5 83 20 156/74 (101) 100 09/30/19 20:00 Mechanical Ventilator 09/30/19 19:28 82 09/30/19 19:10 80 18 100 Mechanical Ventilator 30 82 18 30 09/30/19 17:57 73 149/81 09/30/19 16:09 73 09/30/19 16:00 30 09/30/19 16:00 97.7 74 20 149/81 (103) 98 09/30/19 16:00 Mechanical Ventilator 09/30/19 15:22 75 18 100 Mechanical Ventilator 30 74 18 30 09/30/19 13:28 169/88 09/30/19 12:00 97.7 76 18 169/88 (115) 100 09/30/19 12:00 30 09/30/19 12:00 Mechanical Ventilator 09/30/19 11:45 82 09/30/19 11:29 88 18 100 Mechanical Ventilator 30 77 18 30 Intake and Output 10/01/19 10/02/19 19:00 07:00 Intake Total 585 ml 425 ml Output Total 325 ml 200 ml Balance 260 ml 225 ml Intake Free Water 200 ml 110 ml Tube Feeding 385 ml 315 ml Output Urine Total 325 ml 200 ml # Bowel Movements 2 5 Labs Test 09/29/19 18:15 09/30/19 06:05 10/01/19 04:35 10/02/19 06:10 Stool Occult Blood Negative (NEGATIVE) White Blood Count 12.4 K/UL (4.8-10.8) 12.0 K/UL (4.8-10.8) Red Blood Count 2.69 M/UL (4.20-5.40) 2.99 M/UL (4.20-5.40) Hemoglobin 8.1 G/DL (12.0-16.0) 8.9 G/DL (12.0-16.0) Hematocrit 24.0 % (37.0-47.0) 26.8 % (37.0-47.0) Mean Corpuscular Volume 89 FL (80-99) 90 FL (80-99) Mean Corpuscular Hemoglobin 30.1 PG (27.0-31.0) 29.8 PG (27.0-31.0) Mean Corpuscular Hemoglobin Concent 33.8 G/DL (32.0-36.0) 33.2 G/DL (32.0-36.0) Red Cell Distribution Width 14.9 % (11.6-14.8) 14.8 % (11.6-14.8) Platelet Count 345 K/UL (150-450) 273 K/UL (150-450) Mean Platelet Volume 4.8 FL (6.5-10.1) 4.9 FL (6.5-10.1) Neutrophils (%) (Auto) % (45.0-75.0) 67.4 % (45.0-75.0) Lymphocytes (%) (Auto) % (20.0-45.0) 26.7 % (20.0-45.0) Monocytes (%) (Auto) % (1.0-10.0) 3.7 % (1.0-10.0) Eosinophils (%) (Auto) % (0.0-3.0) 1.6 % (0.0-3.0) Basophils (%) (Auto) % (0.0-2.0) 0.6 % (0.0-2.0) Differential Total Cells Counted 100 Neutrophils % (Manual) 73 % (45-75) Lymphocytes % (Manual) 23 % (20-45) Monocytes % (Manual) 2 % (1-10) Eosinophils % (Manual) 2 % (0-3) Basophils % (Manual) 0 % (0-2) Band Neutrophils 0 % (0-8) Platelet Estimate Adequate Platelet Morphology Normal Anisocytosis 1+ Sodium Level 138 MMOL/L (136-145) 137 MMOL/L (136-145) 139 MMOL/L (136-145) Potassium Level 3.8 MMOL/L (3.5-5.1) 3.8 MMOL/L (3.5-5.1) 3.7 MMOL/L (3.5-5.1) Chloride Level 100 MMOL/L (98-107) 100 MMOL/L (98-107) 100 MMOL/L (98-107) Carbon Dioxide Level 26 MMOL/L (21-32) 25 MMOL/L (21-32) 24 MMOL/L (21-32) Anion Gap 12 mmol/L (5-15) 12 mmol/L (5-15) 15 mmol/L (5-15) Blood Urea Nitrogen 124 mg/dL (7-18) 139 mg/dL (7-18) 156 mg/dL (7-18) Creatinine 3.5 MG/DL (0.55-1.30) 3.7 MG/DL (0.55-1.30) 3.9 MG/DL (0.55-1.30) Estimat Glomerular Filtration Rate 12.6 mL/min (>60) 11.8 mL/min (>60) 11.1 mL/min (>60) Glucose Level 139 MG/DL (74-106) 138 MG/DL (74-106) 181 MG/DL (74-106) Calcium Level 8.7 MG/DL (8.5-10.1) 8.6 MG/DL (8.5-10.1) 8.6 MG/DL (8.5-10.1) Total Bilirubin 0.5 MG/DL (0.2-1.0) 0.5 MG/DL (0.2-1.0) 0.5 MG/DL (0.2-1.0) Aspartate Amino Transf (AST/SGOT) 676 U/L (15-37) 284 U/L (15-37) 313 U/L (15-37) Alanine Aminotransferase (ALT/SGPT) 517 U/L (12-78) 297 U/L (12-78) 415 U/L (12-78) Alkaline Phosphatase 579 U/L (46-116) 411 U/L (46-116) 497 U/L (46-116) Total Protein 6.5 G/DL (6.4-8.2) 7.0 G/DL (6.4-8.2) 7.5 G/DL (6.4-8.2) Albumin 2.2 G/DL (3.4-5.0) 2.2 G/DL (3.4-5.0) 2.5 G/DL (3.4-5.0) Globulin 4.3 g/dL 4.8 g/dL 5.4 g/dL Albumin/Globulin Ratio 0.5 (1.0-2.7) 0.5 (1.0-2.7) 0.4 (1.0-2.7) Immunoglobulin G 2277 mg/dL (586-1602) Phosphorus Level 5.1 MG/DL (2.5-4.9) Magnesium Level 2.8 MG/DL (1.8-2.4) Direct Bilirubin 0.2 MG/DL (0.0-0.3) Gamma Glutamyl Transpeptidase 138 U/L (5-85) C-Reactive Protein, Quantitative 13.6 mg/dL (0.00-0.90) Height (Feet): 5 Height (Inches): 4.00 Weight (Pounds): 112 Objective Physical Exam vitals: reviewed gen: nad pulm: on trach+ / vent, decreased breath sounds left, chest tube+ cv: rrr, no gmr abd: sfot, nt, nd ++ gt ext: no cce Gio Rob MD Oct 02, 2019 10:20
--- NOTE | 2019-10-02 11:04 | Infectious Diseases Prog Note ---
Assessment/Plan Assessment/Plan A; 1. Hailee sepsis treated 2. Klebsiella sepsis , treated 3. Right shoulder septic arthritis, status post surgery. 4. Diabetes. 5. Hypertension. 6. Anemia 7. Thrombocytopenia resolved 9. Atelectasis , resolved 10. Pleural effusion, hemothorax 11. Ulcerative esophagitis 12. Leukocytosis PLAN: 1. Observe off antibiotic 2. Waiting for placement Subjective ROS Limited/Unobtainable: Yes Allergies: Coded Allergies: VANCOMYCIN (Unverified Allergy, Unknown, 08/02/19) Objective Vital Signs Last 24 Hour Vital Signs Date Time Temp Pulse Resp B/P (MAP) Pulse Ox O2 Delivery O2 Flow Rate FiO2 10/02/19 08:52 67 166/77 10/02/19 08:51 67 166/77 10/02/19 08:30 67 19 30 10/02/19 08:00 Mechanical Ventilator 10/02/19 08:00 98.0 65 18 166/77 (106) 100 10/02/19 08:00 30 10/02/19 08:00 68 10/02/19 07:15 63 18 100 Mechanical Ventilator 30 64 18 30 10/02/19 05:37 68 19 30 10/02/19 04:09 97.0 65 18 124/76 (92) 96 10/02/19 04:00 68 10/02/19 04:00 Mechanical Ventilator 10/02/19 04:00 30 10/02/19 03:26 67 18 100 Mechanical Ventilator 30 69 18 30 10/02/19 01:42 72 19 30 10/02/19 00:00 97.6 74 18 143/69 (93) 99 10/02/19 00:00 Mechanical Ventilator 10/01/19 23:57 64 10/01/19 22:37 66 18 100 Mechanical Ventilator 30 64 18 30 10/01/19 21:34 61 18 30 10/01/19 20:42 74 152/77 10/01/19 20:28 97.5 70 152/77 (102) 99 10/01/19 20:00 30 10/01/19 20:00 Mechanical Ventilator 10/01/19 20:00 70 10/01/19 19:29 71 18 100 Mechanical Ventilator 30 72 18 30 10/01/19 18:23 71 153/77 10/01/19 16:56 71 18 30 10/01/19 15:52 30 10/01/19 15:52 Mechanical Ventilator 10/01/19 15:51 97.0 70 18 153/77 (102) 100 10/01/19 15:13 70 10/01/19 14:50 67 19 100 Mechanical Ventilator 30 69 18 30 10/01/19 12:47 67 18 100 Mechanical Ventilator 30 66 18 30 10/01/19 12:00 97.0 63 19 146/66 (92) 100 10/01/19 12:00 Mechanical Ventilator 10/01/19 12:00 30 10/01/19 11:48 63 10/01/19 11:23 63 18 100 Mechanical Ventilator 30 66 18 30 Height (Feet): 5 Height (Inches): 4.00 Weight (Pounds): 112 General Appearance: no acute distress, cachetic HEENT: status post trach Respiratory/Chest: other - on ventilator Cardiovascular: normal rate Abdomen: soft, non tender, other - GT feeding Extremities: no edema Skin: other - contracted Neurologic/Psychiatric: aphasia Laboratory Tests Test 10/02/19 06:10 White Blood Count 12.0 K/UL (4.8-10.8) H Red Blood Count 2.99 M/UL (4.20-5.40) L Hemoglobin 8.9 G/DL (12.0-16.0) L Hematocrit 26.8 % (37.0-47.0) L Mean Corpuscular Volume 90 FL (80-99) Mean Corpuscular Hemoglobin 29.8 PG (27.0-31.0) Mean Corpuscular Hemoglobin Concent 33.2 G/DL (32.0-36.0) Red Cell Distribution Width 14.8 % (11.6-14.8) Platelet Count 273 K/UL (150-450) Mean Platelet Volume 4.9 FL (6.5-10.1) L Neutrophils (%) (Auto) 67.4 % (45.0-75.0) Lymphocytes (%) (Auto) 26.7 % (20.0-45.0) Monocytes (%) (Auto) 3.7 % (1.0-10.0) Eosinophils (%) (Auto) 1.6 % (0.0-3.0) Basophils (%) (Auto) 0.6 % (0.0-2.0) Sodium Level 139 MMOL/L (136-145) Potassium Level 3.7 MMOL/L (3.5-5.1) Chloride Level 100 MMOL/L (98-107) Carbon Dioxide Level 24 MMOL/L (21-32) Anion Gap 15 mmol/L (5-15) Blood Urea Nitrogen 156 mg/dL (7-18) H Creatinine 3.9 MG/DL (0.55-1.30) H Estimat Glomerular Filtration Rate 11.1 mL/min (>60) Glucose Level 181 MG/DL (74-106) H Calcium Level 8.6 MG/DL (8.5-10.1) Phosphorus Level 5.1 MG/DL (2.5-4.9) H Magnesium Level 2.8 MG/DL (1.8-2.4) H Total Bilirubin 0.5 MG/DL (0.2-1.0) Direct Bilirubin 0.2 MG/DL (0.0-0.3) Gamma Glutamyl Transpeptidase 138 U/L (5-85) H Aspartate Amino Transf (AST/SGOT) 313 U/L (15-37) H Alanine Aminotransferase (ALT/SGPT) 415 U/L (12-78) H Alkaline Phosphatase 497 U/L (46-116) H C-Reactive Protein, Quantitative 13.6 mg/dL (0.00-0.90) H Total Protein 7.5 G/DL (6.4-8.2) Albumin 2.5 G/DL (3.4-5.0) L Globulin 5.4 g/dL Albumin/Globulin Ratio 0.4 (1.0-2.7) L Current Medications Medications (Trade) Dose Ordered Sig/Javier Route PRN Reason Start Time Stop Time Status Last Admin Dose Admin Acetylcysteine (Mucomyst) 100 mg Q4HRT [facility] 08/31/19 19:00 11/29/19 18:59 10/02/19 07:25 Albuterol/ Ipratropium (Albuterol/ Ipratropium) 3 ml Q4HRT [facility] 09/22/19 15:00 12/09/19 14:59 10/02/19 07:25 Amlodipine Besylate (Norvasc) 5 mg BID ORAL 09/25/19 09:00 10/25/19 08:59 10/02/19 08:52 Chlorhexidine Gluconate (Nae-Hex 2%) 1 applic DAILY@1999 TOPIC 09/17/19 20:00 12/16/19 19:59 10/01/19 20:42 Clonidine HCl (Catapres Tab) 0.1 mg Q4H PRN ORAL For High Blood Pressure 09/22/19 21:00 12/21/19 20:59 09/30/19 13:28 Dextrose (Dextrose 50%) 25 ml Q30M PRN IV Hypoglycemia 09/02/19 06:15 12/01/19 06:14 09/04/19 12:11 Dextrose (Dextrose 50%) 50 ml Q30M PRN IV Hypoglycemia 09/02/19 06:15 12/01/19 06:14 Lansoprazole (Prevacid) 30 mg DAILY GT 09/27/19 09:00 10/27/19 08:59 10/02/19 08:51 Levothyroxine Sodium (Synthroid) 125 mcg DAILY@0630 ORAL 09/22/19 06:30 10/22/19 06:29 10/02/19 06:25 Metoprolol Tartrate (Lopressor) 25 mg Q12HR ORAL 10/01/19 09:00 12/30/19 08:59 10/02/19 08:51 Psyllium Hydrophilic Mucilloid (Metamucil) 1 pkt DAILY ORAL 09/22/19 15:00 10/22/19 14:59 10/02/19 08:51 Sevelamer Carbonate (Renvela) 800 mg Q8HR NG 09/25/19 14:00 12/24/19 13:59 10/02/19 06:24 Warren Parks MD Oct 02, 2019 11:04
--- NOTE | 2019-10-02 11:18 | General Progress Note ---
Assessment/Plan Status: stable, not improved, unchanged, deteriorating Assessment/Plan: Assessment - Severe ulcerative esophagitis - mild elevation in LFT, Hepatitis B/C negative --> now sudden rise - ? related to new 1.9 cm mass near GB - ? autoimmune / high ESR - abnormal liver on CT - ? chronic disease / fibrosis - Resp failure - trach - s/p recent Chest tube and removal - Renal failure - aspiration risk --> s/p PEG - anemia - bradycardia - Poor prognosis Recommendations - CT reviewed -? shock liver. Repeat in am>>> improving - check autoimmune markers - pending>>> neg JOLIE - check AFP - GT care - water flushes - elevate HOB - monitor H&H - ppi -check stool ob>>>positive>>> ordered one more>>>seconf one neg patient poor candidate for GI procedures - vent -patient not a candidate for liver biopsy -given elevated SM Ab and igg, neg hepatitis panel will start prednisone 30 mg -fu LFTS Subjective ROS Limited/Unobtainable: No Allergies: Coded Allergies: VANCOMYCIN (Unverified Allergy, Unknown, 08/02/19) Subjective s/p blood transfusion Objective Last 24 Hour Vital Signs Date Time Temp Pulse Resp B/P (MAP) Pulse Ox O2 Delivery O2 Flow Rate FiO2 10/02/19 11:04 58 20 100 Mechanical Ventilator 30 61 19 30 10/02/19 08:52 67 166/77 10/02/19 08:51 67 166/77 10/02/19 08:30 67 19 30 10/02/19 08:00 Mechanical Ventilator 10/02/19 08:00 98.0 65 18 166/77 (106) 100 10/02/19 08:00 30 10/02/19 08:00 68 10/02/19 07:15 63 18 100 Mechanical Ventilator 30 64 18 30 10/02/19 05:37 68 19 30 10/02/19 04:09 97.0 65 18 124/76 (92) 96 10/02/19 04:00 68 10/02/19 04:00 Mechanical Ventilator 10/02/19 04:00 30 10/02/19 03:26 67 18 100 Mechanical Ventilator 30 69 18 30 10/02/19 01:42 72 19 30 10/02/19 00:00 97.6 74 18 143/69 (93) 99 10/02/19 00:00 Mechanical Ventilator 10/01/19 23:57 64 10/01/19 22:37 66 18 100 Mechanical Ventilator 30 64 18 30 10/01/19 21:34 61 18 30 10/01/19 20:42 74 152/77 10/01/19 20:28 97.5 70 152/77 (102) 99 10/01/19 20:00 30 10/01/19 20:00 Mechanical Ventilator 10/01/19 20:00 70 10/01/19 19:29 71 18 100 Mechanical Ventilator 30 72 18 30 10/01/19 18:23 71 153/77 10/01/19 16:56 71 18 30 10/01/19 15:52 30 10/01/19 15:52 Mechanical Ventilator 10/01/19 15:51 97.0 70 18 153/77 (102) 100 10/01/19 15:13 70 10/01/19 14:50 67 19 100 Mechanical Ventilator 30 69 18 30 10/01/19 12:47 67 18 100 Mechanical Ventilator 30 66 18 30 10/01/19 12:00 97.0 63 19 146/66 (92) 100 10/01/19 12:00 Mechanical Ventilator 10/01/19 12:00 30 10/01/19 11:48 63 10/01/19 11:23 63 18 100 Mechanical Ventilator 30 66 18 30 Intake and Output 10/01/19 10/02/19 19:00 07:00 Intake Total 585 ml 425 ml Output Total 325 ml 200 ml Balance 260 ml 225 ml Intake Free Water 200 ml 110 ml Tube Feeding 385 ml 315 ml Output Urine Total 325 ml 200 ml # Bowel Movements 2 5 Laboratory Tests 10/02/19 06:10: White Blood Count 12.0H, Red Blood Count 2.99L, Hemoglobin 8.9L, Hematocrit 26.8L, Mean Corpuscular Volume 90, Mean Corpuscular Hemoglobin 29.8, Mean Corpuscular Hemoglobin Concent 33.2, Red Cell Distribution Width 14.8, Platelet Count 273, Mean Platelet Volume 4.9L, Neutrophils (%) (Auto) 67.4, Lymphocytes ( %) (Auto) 26.7, Monocytes (%) (Auto) 3.7, Eosinophils (%) (Auto) 1.6, Basophils (%) (Auto) 0.6, Sodium Level 139, Potassium Level 3.7, Chloride Level 100, Carbon Dioxide Level 24, Anion Gap 15, Blood Urea Nitrogen 156H, Creatinine 3.9H , Estimat Glomerular Filtration Rate 11.1, Glucose Level 181H, Calcium Level 8.6 , Phosphorus Level 5.1H, Magnesium Level 2.8H, Total Bilirubin 0.5, Direct Bilirubin 0.2, Gamma Glutamyl Transpeptidase 138H, Aspartate Amino Transf (AST/ SGOT) 313H, Alanine Aminotransferase (ALT/SGPT) 415H, Alkaline Phosphatase 497H , C-Reactive Protein, Quantitative 13.6H, Total Protein 7.5, Albumin 2.5L, Globulin 5.4, Albumin/Globulin Ratio 0.4L Height (Feet): 5 Height (Inches): 4.00 Weight (Pounds): 112 General Appearance: no apparent distress EENT: normal ENT inspection Neck: supple Cardiovascular: normal rate Respiratory/Chest: decreased breath sounds Abdomen: normal bowel sounds, non tender, soft Extremities: non-tender Kenny Rudolph MD Oct 02, 2019 11:18
[2019-10-02 12:00] VITALS: BP 133/49
[2019-10-02] MEDS ORDERED: NS 275ml ONE (13:20)
--- NOTE | 2019-10-02 13:25 | Surgery Progress Note ---
Surgery Progress Note Subjective Procedure Performed 1. tracheostomy 2 removal of left tube thoracostomy Additional Comments seemingly improved exam stable on support when i say hello in lao she bows her head Objective Last 24 Hour Vital Signs Date Time Temp Pulse Resp B/P (MAP) Pulse Ox O2 Delivery O2 Flow Rate FiO2 10/02/19 13:00 57 19 21 10/02/19 12:00 97.8 60 18 133/49 (77) 100 10/02/19 12:00 Mechanical Ventilator 10/02/19 12:00 57 10/02/19 12:00 30 10/02/19 11:04 58 20 100 Mechanical Ventilator 30 61 19 30 10/02/19 08:52 67 166/77 10/02/19 08:51 67 166/77 10/02/19 08:30 67 19 30 10/02/19 08:00 Mechanical Ventilator 10/02/19 08:00 98.0 65 18 166/77 (106) 100 10/02/19 08:00 30 10/02/19 08:00 68 10/02/19 07:15 63 18 100 Mechanical Ventilator 30 64 18 30 10/02/19 05:37 68 19 30 10/02/19 04:09 97.0 65 18 124/76 (92) 96 10/02/19 04:00 68 10/02/19 04:00 Mechanical Ventilator 10/02/19 04:00 30 10/02/19 03:26 67 18 100 Mechanical Ventilator 30 69 18 30 10/02/19 01:42 72 19 30 10/02/19 00:00 97.6 74 18 143/69 (93) 99 10/02/19 00:00 Mechanical Ventilator 10/01/19 23:57 64 10/01/19 22:37 66 18 100 Mechanical Ventilator 30 64 18 30 10/01/19 21:34 61 18 30 10/01/19 20:42 74 152/77 10/01/19 20:28 97.5 70 152/77 (102) 99 10/01/19 20:00 30 10/01/19 20:00 Mechanical Ventilator 10/01/19 20:00 70 10/01/19 19:29 71 18 100 Mechanical Ventilator 30 72 18 30 10/01/19 18:23 71 153/77 10/01/19 16:56 71 18 30 10/01/19 15:52 30 10/01/19 15:52 Mechanical Ventilator 10/01/19 15:51 97.0 70 18 153/77 (102) 100 10/01/19 15:13 70 10/01/19 14:50 67 19 100 Mechanical Ventilator 30 69 18 30 I&O Intake and Output 10/01/19 10/02/19 19:00 07:00 Intake Total 585 ml 425 ml Output Total 325 ml 200 ml Balance 260 ml 225 ml Intake Free Water 200 ml 110 ml Tube Feeding 385 ml 315 ml Output Urine Total 325 ml 200 ml # Bowel Movements 2 5 Dressing: dry Wound: clean Cardiovascular: RSR Respiratory: clear, decreased breath sounds Abdomen: non-tender, present bowel sounds Extremities: no edema, no tenderness, no cyanosis Laboratory Tests Test 10/02/19 06:10 White Blood Count 12.0 K/UL (4.8-10.8) H Red Blood Count 2.99 M/UL (4.20-5.40) L Hemoglobin 8.9 G/DL (12.0-16.0) L Hematocrit 26.8 % (37.0-47.0) L Mean Corpuscular Volume 90 FL (80-99) Mean Corpuscular Hemoglobin 29.8 PG (27.0-31.0) Mean Corpuscular Hemoglobin Concent 33.2 G/DL (32.0-36.0) Red Cell Distribution Width 14.8 % (11.6-14.8) Platelet Count 273 K/UL (150-450) Mean Platelet Volume 4.9 FL (6.5-10.1) L Neutrophils (%) (Auto) 67.4 % (45.0-75.0) Lymphocytes (%) (Auto) 26.7 % (20.0-45.0) Monocytes (%) (Auto) 3.7 % (1.0-10.0) Eosinophils (%) (Auto) 1.6 % (0.0-3.0) Basophils (%) (Auto) 0.6 % (0.0-2.0) Sodium Level 139 MMOL/L (136-145) Potassium Level 3.7 MMOL/L (3.5-5.1) Chloride Level 100 MMOL/L (98-107) Carbon Dioxide Level 24 MMOL/L (21-32) Anion Gap 15 mmol/L (5-15) Blood Urea Nitrogen 156 mg/dL (7-18) H Creatinine 3.9 MG/DL (0.55-1.30) H Estimat Glomerular Filtration Rate 11.1 mL/min (>60) Glucose Level 181 MG/DL (74-106) H Calcium Level 8.6 MG/DL (8.5-10.1) Phosphorus Level 5.1 MG/DL (2.5-4.9) H Magnesium Level 2.8 MG/DL (1.8-2.4) H Total Bilirubin 0.5 MG/DL (0.2-1.0) Direct Bilirubin 0.2 MG/DL (0.0-0.3) Gamma Glutamyl Transpeptidase 138 U/L (5-85) H Aspartate Amino Transf (AST/SGOT) 313 U/L (15-37) H Alanine Aminotransferase (ALT/SGPT) 415 U/L (12-78) H Alkaline Phosphatase 497 U/L (46-116) H C-Reactive Protein, Quantitative 13.6 mg/dL (0.00-0.90) H Total Protein 7.5 G/DL (6.4-8.2) Albumin 2.5 G/DL (3.4-5.0) L Globulin 5.4 g/dL Albumin/Globulin Ratio 0.4 (1.0-2.7) L Assessment Post-op Diagnosis same Plan Problems: (1) Malnutrition Assessment & Plan: DAILY ESTIMATED NEEDS: Needs based on ESRD+ HD, underweight, wound/ 39.5kg 35-40 kcals/kg 2923-9481 total kcals 1.25-1.8 g protein/kg 49-71 g total protein 20-22 mL/kg 790-869 total fluid mLs NUTRITION DIAGNOSIS: * Increased kcal and protein needs r/t underweight status, HD needs, wuond healing as evidenced by pt is underweight per guidelines, ESRD, on HD, admitted non-blanching erythema wounds @ BL heels and sacrum * Swallowing difficulty R/T dysphagia as evidenced by YARD SUPERVISOR recommends temporary nonoral feeding at this time, s/p NGT insertion, on NGT feeding-> now s/p self removal, NPO. CURRENT TF:NPO PO DIET RECOMMENDATIONS: WHEN SAFE FOR ORAL DIET -> renal/ texture per YARD SUPERVISOR ENTERAL NUTRITION RECOMMENDATIONS: W/ GI access: Nepro @ 35ml/hr x 22 hrs to provide 770ml, 1386kcal, 62g prot, 560ml free water * W/ GI access, resume TF on Nepro * Initiate Nepro @ 15ml/hr x 6 hrs, advance 10ml q 4-6 hrs as tolerated to goal rate. * Hold 1 hour before and after Synthroid med * HOB over 30 degrees/ water flush per MD. ADDITIONAL RECOMMENDATIONS: 1) Calibrated bed scale wt for accurate CBW -> daily wt monitoring Per HD record: dry wt on 07/30=39.5kg (87lbs) 2) Wound care: (W/ GI access) add Nephorivte x 1 + Balta BID 3) Monitor NPO status: without GI access at this time, s/p pulling out NGT 4) Monitor for hypoglycemia while NPO 5) Monitor for continuity of HD (2) Septic arthritis Assessment & Plan: Pt presented on admission with generalized scaly rash . pt noted to be restless and scratching at skin. Bleeding from oral mucosa noted. Joint deformity noted to R shoulder. Surgical incision approximated with 11 sutures. Erythema but no exudate,or elevation in skin temp at site of incision. Historical incision R hip that is tunneled.Small amt seropurulent exudate noted. Periwound is erythematous,but no elevation in skin temp noted. No odor noted. Non-blanching erythema noted to sacrum. Perianal area is erythematous and excoriated. L heel is boggy with non-blanching erythema. R heel is soft with non-blanching erythema. No evidence of skin breakdown to all other bony prominences. Tx.plan: Cover R shoulder with Drsg and change daily and prn. Cleanse R hip wound with Saline. Apply Therahoney.Apply Cavilon Skin Barrier periwound. Cover with Optifoam drsg. Change every 3 days and prn. Apply Moisture Barrier Paste to perianal area and buttocks. Cover Sacrum with Optifoam drsg. Change every 3 days and prn. Apply Cavilon Skin Barrier to both heels. Cover each heel with Optifoam drsg. Change every 7 days and prn. APM/ELVIA Mattress overlay. Reposition at least every 2hours or as tolerated. Off-load heels with pillow. HD cath necessary HD as renal likely will need intubation 19 x 11 x 11 mm hypoechoic area in the liver adjacent to the gallbladder fossa. Although location is typical for area of focal sparing in a fatty liver, there are no findings to indicate fatty liver and this is a new finding since fairly recent previous exam. Therefore the possibility of a process such as small abscess should be considered. Atrophic echogenic kidneys Negative for gallstones or dilated bile ducts (3) Wound, open, hip or thigh with complication Assessment & Plan: slow healing will need nutritional optimization difficult ng tube peg when stable sutures removed from right shoulder comfortable wean vent may need trach (4) Abscess of right hip (5) possible septic arthritis (6) Renal failure (ARF), acute on chronic Assessment & Plan: cont HD will need tunneled cath placement okay to use fem line for now but will need change soon. line monitored and clean dressings going well (7) Pneumonia Assessment & Plan: intubated on vent support not tolerating weaning may need trach hemothorax likely after thoracentesis Chest CT noted Left chest tube placed With plan for trach chest tube can be considered but overall prognosis is very poor s/p trach left chest tub eout cxr noted and okay downgrade left pleural effusion dressings saturated will need to monitor. may need another chest tube as may not heal well on left side Anasarca, with as mentioned above diffuse edema of the soft tissues, trace ascites, and bilateral pleural effusions No hepatic abnormality to correlate with suspected small pericholecystic lesion in the liver described on recent sonogram. The lesion may be occult on noncontrast CT, may have been artifactual or may have resolved in the interim. Consider repeat sonography in a few days to assess progression No definite acute abdominal process otherwise Improved but still sizable left pleural effusion with minimal residual hemoperitoneum since prior CT scan of 09/01/2019. There is near complete atelectasis of the left lower lobe. There is a small right pleural effusion with atelectatic changes of the right lower lobe and right perihilar dense consolidation. These appear improved since a prior CT of 09/01/2019 Increased crazy paving type opacity within the right middle lobe since previous August [address], may reflect an area of increasing infiltrate, versus focal edema. There is also some dense consolidation of the perihilar right lower lobe which is improved since the previous August 31 CT Right groin temporary dialysis catheter in good position Atrophic kidneys, consistent with known history of chronic renal disease L2 compression fracture deformity, and advanced degenerative changes of the L2- L3 disc. Similar to prior study Marroquin catheter hold on repeat chest tube (8) Liver enzyme elevation Assessment & Plan: likely shock liver improving trend Camilo James Oct 02, 2019 13:25
[2019-10-02 16:00] VITALS: BP 169/94
[2019-10-02 20:00] VITALS: BP 143/78
--- NOTE | 2019-10-02 22:26 | Pulmonology Progress Note ---
Assessment/Plan Assessment/Plan Pulmonary Progress Note Assessment/Plan Assessment/Plan Assessment/Plan respiratory failure hypoxemia chronic renal failure toxic met encephalopathy severe protein calorie malnutrition cachexia left lung whiteout/collapse, anemia pulmonary edema + pleural effusion s/p CT placement and removal s/p trach hypernatremia PLAN trach care as is await repeat imaging for further intervention care noted and reviewed monitor for fluid retention reviewed care and continue to monitor weaning unable renal follow up and dialysis prognosis poor overall for change keep negative and monitor osmotic pressures fully dependent for now close follow up discussed elevated head and monitor ROM watch fluid status and keep negative nutrition and monitor residuals doubt any significant improvement off load as able and monitor skin exam ROM as able and monitor contractures prognosis poor for recovery will need LTAC impression, plan, and exam edited and reviewed in detail care discussed with RN Subjective Interval Events: care noted and reviewed no distress on vent poor LOC ROS Limited/Unobtainable: Yes Condition: unchanged Residuals: minimal Tube Feeding Tolerated: yes Vital Signs Noted Laboratory Tests Noted Objective: WDWN NAD trach in place reduced breath sounds without rhonchi or wheeze [id number] without MRG NABS nontender no HSM no CCE contractures feeding tube in place no distention reduced LOC and weak nonfocal cachectic reviewed and edited Subjective ROS Limited/Unobtainable: No Allergies: Coded Allergies: VANCOMYCIN (Unverified Allergy, Unknown, 08/02/19) Objective Last 24 Hour Vital Signs Date Time Temp Pulse Resp B/P (MAP) Pulse Ox O2 Delivery O2 Flow Rate FiO2 10/02/19 20:00 97.0 71 19 143/78 (99) 100 10/02/19 19:56 Mechanical Ventilator 10/02/19 19:38 66 18 100 Mechanical Ventilator 21 10/02/19 19:23 65 18 Mechanical Ventilator 21 21 10/02/19 17:42 66 169/94 10/02/19 17:07 66 18 21 10/02/19 16:00 21 10/02/19 16:00 64 10/02/19 16:00 98.4 62 18 169/94 (119) 100 10/02/19 16:00 Mechanical Ventilator 10/02/19 13:00 57 19 21 10/02/19 12:00 97.8 60 18 133/49 (77) 100 10/02/19 12:00 Mechanical Ventilator 10/02/19 12:00 57 10/02/19 12:00 30 4/19/20 11:04 58 20 100 Mechanical Ventilator 30 61 19 30 10/02/19 08:52 67 166/77 10/02/19 08:51 67 166/77 10/02/19 08:30 67 19 30 10/02/19 08:00 Mechanical Ventilator 10/02/19 08:00 98.0 65 18 166/77 (106) 100 10/02/19 08:00 30 10/02/19 08:00 68 10/02/19 07:15 63 18 100 Mechanical Ventilator 30 64 18 30 10/02/19 05:37 68 19 30 10/02/19 04:09 97.0 65 18 124/76 (92) 96 10/02/19 04:00 68 10/02/19 04:00 Mechanical Ventilator 10/02/19 04:00 30 10/02/19 03:26 67 18 100 Mechanical Ventilator 30 69 18 30 10/02/19 01:42 72 19 30 10/02/19 00:00 97.6 74 18 143/69 (93) 99 10/02/19 00:00 Mechanical Ventilator 10/01/19 23:57 64 10/01/19 22:37 66 18 100 Mechanical Ventilator 30 64 18 30 Intake and Output 10/01/19 10/02/19 19:00 07:00 Intake Total 585 ml 460 ml Output Total 325 ml 200 ml Balance 260 ml 260 ml Intake Free Water 200 ml 110 ml Tube Feeding 385 ml 350 ml Output Urine Total 325 ml 200 ml # Bowel Movements 2 5 Laboratory Tests 10/02/19 06:10: White Blood Count 12.0H, Red Blood Count 2.99L, Hemoglobin 8.9L, Hematocrit 26.8L, Mean Corpuscular Volume 90, Mean Corpuscular Hemoglobin 29.8, Mean Corpuscular Hemoglobin Concent 33.2, Red Cell Distribution Width 14.8, Platelet Count 273, Mean Platelet Volume 4.9L, Neutrophils (%) (Auto) 67.4, Lymphocytes ( %) (Auto) 26.7, Monocytes (%) (Auto) 3.7, Eosinophils (%) (Auto) 1.6, Basophils (%) (Auto) 0.6, Sodium Level 139, Potassium Level 3.7, Chloride Level 100, Carbon Dioxide Level 24, Anion Gap 15, Blood Urea Nitrogen 156H, Creatinine 3.9H , Estimat Glomerular Filtration Rate 11.1, Glucose Level 181H, Calcium Level 8.6 , Phosphorus Level 5.1H, Magnesium Level 2.8H, Total Bilirubin 0.5, Direct Bilirubin 0.2, Gamma Glutamyl Transpeptidase 138H, Aspartate Amino Transf (AST/ SGOT) 313H, Alanine Aminotransferase (ALT/SGPT) 415H, Alkaline Phosphatase 497H , C-Reactive Protein, Quantitative 13.6H, Total Protein 7.5, Albumin 2.5L, Globulin 5.4, Albumin/Globulin Ratio 0.4L Current Medications Medications (Trade) Dose Ordered Sig/Javier Route PRN Reason Start Time Stop Time Status Last Admin Dose Admin Acetylcysteine (Mucomyst) 100 mg Q4HRT N 08/31/19 19:00 11/29/19 18:59 10/02/19 19:23 Albuterol/ Ipratropium (Albuterol/ Ipratropium) 3 ml Q4HRT N 09/22/19 15:00 12/09/19 14:59 10/02/19 19:23 Amlodipine Besylate (Norvasc) 5 mg BID ORAL 09/25/19 09:00 10/25/19 08:59 10/02/19 17:42 Chlorhexidine Gluconate (Nae-Hex 2%) 1 applic DAILY@2000 TOPIC 09/17/19 20:00 12/16/19 19:59 10/01/19 20:42 Clonidine HCl (Catapres Tab) 0.1 mg Q4H PRN ORAL For High Blood Pressure 09/22/19 21:00 12/21/19 20:59 09/30/19 13:28 Dextrose (Dextrose 50%) 25 ml Q30M PRN IV Hypoglycemia 09/02/19 06:15 12/01/19 06:14 09/04/19 12:11 Dextrose (Dextrose 50%) 50 ml Q30M PRN IV Hypoglycemia 09/02/19 06:15 12/01/19 06:14 Lansoprazole (Prevacid) 30 mg DAILY GT 09/27/19 09:00 10/27/19 08:59 10/02/19 08:51 Levothyroxine Sodium (Synthroid) 125 mcg DAILY@0630 ORAL 09/22/19 06:30 10/22/19 06:29 10/02/19 06:25 Metoprolol Tartrate (Lopressor) 25 mg Q12HR ORAL 10/01/19 09:00 12/30/19 08:59 10/02/19 08:51 Prednisone (predniSONE) 30 mg DAILY ORAL 10/03/19 09:00 11/02/19 08:59 Psyllium Hydrophilic Mucilloid (Metamucil) 1 pkt DAILY ORAL 09/22/19 15:00 10/22/19 14:59 10/02/19 08:51 Sevelamer Carbonate (Renvela) 800 mg Q8HR NG 09/25/19 14:00 12/24/19 13:59 10/02/19 13:45 Abel Graham MD Oct 02, 2019 22:25
[2019-10-02] MEDS: Dyna-Hex 2% Top Sol 2oz TOPIC SCH (23:28)
[2019-10-03] VITALS: BP 139/76
[2019-10-03] MEDS: Albuterol/Ipratropium 3ml neb HHN SCH ×6 (02:49→22:29)
[2019-10-03 04:00] VITALS: BP 141/69
--- NOTE | 2019-10-03 04:29 | Progress Note ---
DATE: 10/02/2019 CARDIOLOGY PROGRESS NOTE SUBJECTIVE: Remains on ventilator support. Episodic blood pressure elevations. Monitored rhythm sinus. No pauses or bradycardias. No sustained atrial or ventricular arrhythmias. OBJECTIVE: LUNGS: Bilateral breath sounds. Thin secretions. CARDIAC: Regular rhythm and rate. Normal S1, S2. No third heart sound. ABDOMEN: Soft. G-tube intact. EXTREMITIES: Trace dependent edema. LABORATORY STUDIES: White count 12, hemoglobin 8.9. Sodium 139, potassium 3.7. BUN 156, creatinine 3.9. Bicarb 24, magnesium 2.8. Liver function studies are still elevated in the range of 300 to 400. IMPRESSION: 1. Persistent transaminitis despite hydralazine being discontinued. 2. Respiratory failure with tracheostomy. 3. Hypertensive heart disease with labile blood pressure. 4. Acute on chronic diastolic congestive heart failure. 5. End-stage renal disease. PLAN: 1. Steroid trial per gastrointestinal for transaminitis and the possibility of an autoimmune etiology. Hemodialysis with additional ultrafiltration. Maintain adequate thyroid replacement. 2. Advance antihypertensives. 3. Ventilator support not weanable at this time. Abel Stubbs M.D. DR: ADAM JOB#: [id number] CC:
[2019-10-03 05:09] LABS: BASOPHILS % (AUTO) 0.7 % (0.0-2.0); EOSINOPHILS % (AUTO) 2.8 % (0.0-3.0); HEMATOCRIT 23.4 % (37.0-47.0); LYMPHOCYTES % (AUTO) 30.3 % (20.0-45.0); MEAN CORPUSCULAR VOLUME 89 FL (80-99); MONOCYTES % (AUTO) 3.1 % (1.0-10.0); NEUTROPHILS % (AUTO) 63.2 % (45.0-75.0); PLATELET COUNT 223 K/UL (150-450); RED BLOOD COUNT 2.65 M/UL (4.20-5.40); RED CELL DISTRIBUTION WIDTH 15.1 % (11.6-14.8); WHITE BLOOD COUNT 10.1 K/UL (4.8-10.8)
[2019-10-03] MEDS: Renvela 800mg Pkt NG SCH ×3 (05:22→21:15)
[2019-10-03] MEDS: Levothyroxine 125mcg tab ORAL SCH (05:22)
[2019-10-03 06:05] LABS: ALANINE AMINOTRANSFERASE 287 U/L (12-78); ALBUMIN 2.1 G/DL (3.4-5.0); ALBUMIN/GLOBULIN RATIO 0.4 (1.0-2.7); ALKALINE PHOSPHATASE 430 U/L (46-116); ANION GAP 16 mmol/L (5-15); ASPARTATE AMINO TRANSFERASE 283 U/L (15-37); BILIRUBIN,TOTAL 0.4 MG/DL (0.2-1.0); BLOOD UREA NITROGEN 167 mg/dL (7-18); CALCIUM 8.2 MG/DL (8.5-10.1); CARBON DIOXIDE 21 MMOL/L (21-32); CHLORIDE 102 MMOL/L (98-107); POTASSIUM 3.8 MMOL/L (3.5-5.1); SODIUM 139 MMOL/L (136-145)
[2019-10-03 08:00] VITALS: BP 154/74
--- NOTE | 2019-10-03 08:11 | General Progress Note ---
Assessment/Plan Problem List: (1) Hypothyroid ICD Codes: E03.9 - Hypothyroidism, unspecified SNOMED: 37131362 (2) ESRD (end stage renal disease) on dialysis ICD Codes: N18.6 - End stage renal disease; Z99.2 - Dependence on renal dialysis SNOMED: 011874597 (3) Hypotension ICD Codes: I95.9 - Hypotension, unspecified SNOMED: 45812559 Qualifiers: Qualified Codes: I95.3 - Hypotension of hemodialysis (4) Pneumonia ICD Codes: J18.9 - Pneumonia, unspecified organism SNOMED: 038674164 Qualifiers: Qualified Codes: J18.9 - Pneumonia, unspecified organism (5) Diabetes mellitus ICD Codes: E11.9 - Type 2 diabetes mellitus without complications SNOMED: 21355244 Status: stable, not improved, unchanged, deteriorating Assessment/Plan: continue Levothyroxine tablet 125 mcg daily - TSH has improved repeat TSH, free 4 next week Subjective ROS Limited/Unobtainable: Yes Allergies: Coded Allergies: VANCOMYCIN (Unverified Allergy, Unknown, 08/02/19) Subjective events noted interval notes reviewed on vent on TF TSH has improved Objective Last 24 Hour Vital Signs Date Time Temp Pulse Resp B/P (MAP) Pulse Ox O2 Delivery O2 Flow Rate FiO2 10/03/19 04:00 21 10/03/19 04:00 69 10/03/19 04:00 97.7 69 18 141/69 (93) 100 10/03/19 04:00 Mechanical Ventilator 10/03/19 03:05 71 19 100 Mechanical Ventilator 21 10/03/19 02:50 67 18 Mechanical Ventilator 10/03/19 00:00 98.1 66 18 139/76 (97) 100 10/03/19 00:00 21 10/03/19 00:00 Mechanical Ventilator 10/03/19 00:00 66 10/02/19 23:55 67 20 99 Mechanical Ventilator 21 10/02/19 23:40 69 19 Mechanical Ventilator 21 21 10/02/19 23:28 71 143/78 10/02/19 20:00 97.0 71 19 143/78 (99) 100 10/02/19 19:56 Mechanical Ventilator 10/02/19 19:38 66 18 100 Mechanical Ventilator 21 10/02/19 19:23 65 18 Mechanical Ventilator 21 21 10/02/19 17:42 66 169/94 4/19/20 17:07 66 18 21 10/02/19 16:00 21 10/02/19 16:00 64 10/02/19 16:00 98.4 62 18 169/94 (119) 100 10/02/19 16:00 Mechanical Ventilator 10/02/19 13:00 57 19 21 10/02/19 12:00 97.8 60 18 133/49 (77) 100 10/02/19 12:00 Mechanical Ventilator 10/02/19 12:00 57 10/02/19 12:00 30 10/02/19 11:04 58 20 100 Mechanical Ventilator 30 61 19 30 10/02/19 08:52 67 166/77 10/02/19 08:51 67 166/77 10/02/19 08:30 67 19 30 Intake and Output 10/02/19 10/03/19 19:00 07:00 Intake Total 570 ml 485 ml Output Total 250 ml 200 ml Balance 320 ml 285 ml Intake Free Water 150 ml 100 ml Tube Feeding 420 ml 385 ml Output Urine Total 250 ml 200 ml # Bowel Movements 2 3 Laboratory Tests 10/03/19 03:20: White Blood Count 10.1, Red Blood Count 2.65L, Hemoglobin 8.0L, Hematocrit 23.4L , Mean Corpuscular Volume 89, Mean Corpuscular Hemoglobin 30.1, Mean Corpuscular Hemoglobin Concent 34.0, Red Cell Distribution Width 15.1H, Platelet Count 223, Mean Platelet Volume 5.2L, Neutrophils (%) (Auto) 63.2, Lymphocytes (%) (Auto) 30.3, Monocytes (%) (Auto) 3.1, Eosinophils (%) (Auto) 2.8, Basophils (%) (Auto) 0.7, Sodium Level 139, Potassium Level 3.8, Chloride Level 102, Carbon Dioxide Level 21, Anion Gap 16H, Blood Urea Nitrogen 167H, Creatinine 4.0H, Estimat Glomerular Filtration Rate 10.8, Glucose Level 165H, Calcium Level 8.2L, Total Bilirubin 0.4, Aspartate Amino Transf (AST/SGOT) 283H , Alanine Aminotransferase (ALT/SGPT) 287H, Alkaline Phosphatase 430H, Total Protein 6.8, Albumin 2.1L, Globulin 4.7, Albumin/Globulin Ratio 0.4L Height (Feet): 5 Height (Inches): 4.00 Weight (Pounds): 112 General Appearance: cachetic Neck: normal alignment Cardiovascular: normal rate Respiratory/Chest: chest wall non-tender Abdomen: normal bowel sounds Pelvis: normal external exam Objective Current Medications Medications (Trade) Dose Ordered Sig/Javier Route PRN Reason Start Time Stop Time Status Last Admin Dose Admin Acetylcysteine (Mucomyst) 100 mg Q4HRT N 08/31/19 19:00 11/29/19 18:59 10/03/19 07:47 Albuterol/ Ipratropium (Albuterol/ Ipratropium) 3 ml Q4HRT N 09/22/19 15:00 12/09/19 14:59 10/03/19 07:47 Amlodipine Besylate (Norvasc) 5 mg BID ORAL 09/25/19 09:00 10/25/19 08:59 10/02/19 17:42 Chlorhexidine Gluconate (Nae-Hex 2%) 1 applic DAILY@1999 TOPIC 09/17/19 20:00 12/16/19 19:59 10/02/19 23:28 Clonidine HCl (Catapres Tab) 0.1 mg Q4H PRN ORAL For High Blood Pressure 09/22/19 21:00 12/21/19 20:59 09/30/19 13:28 Dextrose (Dextrose 50%) 25 ml Q30M PRN IV Hypoglycemia 09/02/19 06:15 12/01/19 06:14 09/04/19 12:11 Dextrose (Dextrose 50%) 50 ml Q30M PRN IV Hypoglycemia 09/02/19 06:15 12/01/19 06:14 Lansoprazole (Prevacid) 30 mg DAILY GT 09/27/19 09:00 10/27/19 08:59 10/02/19 08:51 Levothyroxine Sodium (Synthroid) 125 mcg DAILY@0630 ORAL 09/22/19 06:30 10/22/19 06:29 10/03/19 05:22 Losartan Potassium (Cozaar) 50 mg DAILY GT 10/03/19 09:00 11/02/19 08:59 Metoprolol Tartrate (Lopressor) 25 mg Q12HR ORAL 10/01/19 09:00 12/30/19 08:59 10/02/19 23:28 Prednisone (predniSONE) 30 mg DAILY ORAL 10/03/19 09:00 11/02/19 08:59 Psyllium Hydrophilic Mucilloid (Metamucil) 1 pkt DAILY ORAL 09/22/19 15:00 10/22/19 14:59 10/02/19 08:51 Sevelamer Carbonate (Renvela) 800 mg Q8HR NG 09/25/19 14:00 12/24/19 13:59 10/03/19 05:22 Antonio Jacome MD Oct 03, 2019 08:11
--- NOTE | 2019-10-03 08:50 | General Progress Note ---
Assessment/Plan Status: stable, not improved, unchanged, deteriorating Assessment/Plan: Assessment - Severe ulcerative esophagitis - mild elevation in LFT, Hepatitis B/C negative --> now sudden rise - ? related to new 1.9 cm mass near GB - ? autoimmune / high ESR - abnormal liver on CT - ? chronic disease / fibrosis - Resp failure - trach - s/p recent Chest tube and removal - Renal failure - aspiration risk --> s/p PEG - anemia - bradycardia - Poor prognosis Recommendations - CT reviewed -? shock liver. Repeat in am>>> improving - check autoimmune markers - pending>>> neg JOLIE - check AFP - GT care - water flushes - elevate HOB - monitor H&H - ppi -check stool ob>>>positive>>> ordered one more>>>seconf one neg patient poor candidate for GI procedures - vent -patient not a candidate for liver biopsy -given elevated SM Ab and igg, neg hepatitis panel >>>started prednisone 30 mg Day #2 -will consider adding imuran if good response to prednisone -fu LFTS Subjective ROS Limited/Unobtainable: No Allergies: Coded Allergies: VANCOMYCIN (Unverified Allergy, Unknown, 08/02/19) Subjective s/p blood transfusion Objective Last 24 Hour Vital Signs Date Time Temp Pulse Resp B/P (MAP) Pulse Ox O2 Delivery O2 Flow Rate FiO2 10/03/19 08:02 56 20 100 Mechanical Ventilator 21 55 18 21 10/03/19 08:00 96.8 68 18 154/74 (100) 99 10/03/19 04:00 21 10/03/19 04:00 69 10/03/19 04:00 97.7 69 18 141/69 (93) 100 10/03/19 04:00 Mechanical Ventilator 10/03/19 03:05 71 19 100 Mechanical Ventilator 21 10/03/19 02:50 67 18 Mechanical Ventilator 21 21 10/03/19 00:00 98.1 66 18 139/76 (97) 100 10/03/19 00:00 21 10/03/19 00:00 Mechanical Ventilator 10/03/19 00:00 66 10/02/19 23:55 67 20 99 Mechanical Ventilator 21 10/02/19 23:40 69 19 Mechanical Ventilator 21 21 10/02/19 23:28 71 143/78 10/02/19 20:00 97.0 71 19 143/78 (99) 100 10/02/19 19:56 Mechanical Ventilator 10/02/19 19:38 66 18 100 Mechanical Ventilator 21 10/02/19 19:23 65 18 Mechanical Ventilator 21 21 10/02/19 17:42 66 169/94 10/02/19 17:07 66 18 21 10/02/19 16:00 21 10/02/19 16:00 64 10/02/19 16:00 98.4 62 18 169/94 (119) 100 10/02/19 16:00 Mechanical Ventilator 10/02/19 13:00 57 19 21 10/02/19 12:00 97.8 60 18 133/49 (77) 100 10/02/19 12:00 Mechanical Ventilator 10/02/19 12:00 57 10/02/19 12:00 30 10/02/19 11:04 58 20 100 Mechanical Ventilator 30 61 19 30 10/02/19 08:52 67 166/77 10/02/19 08:51 67 166/77 Intake and Output 10/02/19 10/03/19 19:00 07:00 Intake Total 570 ml 485 ml Output Total 250 ml 200 ml Balance 320 ml 285 ml Intake Free Water 150 ml 100 ml Tube Feeding 420 ml 385 ml Output Urine Total 250 ml 200 ml # Bowel Movements 2 3 Laboratory Tests 10/03/19 03:20: White Blood Count 10.1, Red Blood Count 2.65L, Hemoglobin 8.0L, Hematocrit 23.4L , Mean Corpuscular Volume 89, Mean Corpuscular Hemoglobin 30.1, Mean Corpuscular Hemoglobin Concent 34.0, Red Cell Distribution Width 15.1H, Platelet Count 223, Mean Platelet Volume 5.2L, Neutrophils (%) (Auto) 63.2, Lymphocytes (%) (Auto) 30.3, Monocytes (%) (Auto) 3.1, Eosinophils (%) (Auto) 2.8, Basophils (%) (Auto) 0.7, Sodium Level 139, Potassium Level 3.8, Chloride Level 102, Carbon Dioxide Level 21, Anion Gap 16H, Blood Urea Nitrogen 167H, Creatinine 4.0H, Estimat Glomerular Filtration Rate 10.8, Glucose Level 165H, Calcium Level 8.2L, Total Bilirubin 0.4, Aspartate Amino Transf (AST/SGOT) 283H , Alanine Aminotransferase (ALT/SGPT) 287H, Alkaline Phosphatase 430H, Total Protein 6.8, Albumin 2.1L, Globulin 4.7, Albumin/Globulin Ratio 0.4L Height (Feet): 5 Height (Inches): 4.00 Weight (Pounds): 112 General Appearance: no apparent distress EENT: normal ENT inspection Neck: supple Cardiovascular: normal rate Respiratory/Chest: decreased breath sounds Abdomen: normal bowel sounds, non tender, soft Extremities: non-tender Kenny Rudolph MD Oct 03, 2019 08:50
[2019-10-03] MEDS: Losartan 50mg tab GT SCH ×2 (09:00→09:03)
[2019-10-03] MEDS: Metamucil Pkt ORAL SCH (09:02)
--- NOTE | 2019-10-03 09:21 | General Progress Note ---
Assessment/Plan Problem List: (1) Failure to thrive (0-17) ICD Codes: R62.51 - Failure to thrive (0-17) SNOMED: 791770486 (2) Hypertensive kidney disease ICD Codes: I12.9 - Hypertensive chronic kidney disease with stage 1 through stage 4 chronic kidney disease, or unspecified chronic kidney disease SNOMED: 31131781 (3) Pneumonia ICD Codes: J18.9 - Pneumonia, unspecified organism SNOMED: 064154352 Qualifiers: Qualified Codes: J18.9 - Pneumonia, unspecified organism (4) ESRD (end stage renal disease) ICD Codes: N18.6 - End stage renal disease SNOMED: 09755673 (5) Septic arthritis ICD Codes: M00.9 - Pyogenic arthritis, unspecified SNOMED: 899451994 (6) Thrombocytopenia ICD Codes: D69.6 - Thrombocytopenia, unspecified SNOMED: 164442671 (7) Hypotension ICD Codes: I95.9 - Hypotension, unspecified SNOMED: 40511205 Qualifiers: Qualified Codes: I95.3 - Hypotension of hemodialysis (8) Malnutrition ICD Codes: E46 - Unspecified protein-calorie malnutrition SNOMED: 78136906 Status: stable, not improved, unchanged, deteriorating Assessment/Plan: Continue vent support. Wean as able. Will discuss with pulmonary if patient could be weaned to trach collar.Suctioning and pulmonary toilet. Continue G-tube feedings. Monitor residuals Continue current blood pressure regimen with close monitoring of blood pressure. Hemodialysis with ultrafiltration per nephrology. Turn every 2 hours and good skin care. monitor labs/lfts monitor h/h may need transfusion Discharge planning in progress Subjective ROS Limited/Unobtainable: Yes Constitutional: Reports: malaise, weakness HEENT: Reports: no symptoms Cardiovascular: Reports: no symptoms Respiratory: Reports: cough, shortness of breath Gastrointestinal/Abdominal: Reports: difficulty swallowing Genitourinary: Reports: no symptoms Neurologic/Psychiatric: Reports: pre-existing deficit Endocrine: Reports: no symptoms Hematologic/Lymphatic: Reports: no symptoms Allergies: Coded Allergies: VANCOMYCIN (Unverified Allergy, Unknown, 08/02/19) All Systems: reviewed and negative except above Subjective There were no overnight events. Patient remains stable on the ventilator. She occasionally opens her eyes. Tolerating feedings. LFTS less. h/h stable. no signs of bleeding. no med changes, Objective Last 24 Hour Vital Signs Date Time Temp Pulse Resp B/P (MAP) Pulse Ox O2 Delivery O2 Flow Rate FiO2 10/03/19 09:03 154/74 10/03/19 09:03 56 154/74 10/03/19 09:02 56 154/74 10/03/19 08:02 56 20 100 Mechanical Ventilator 21 55 18 21 10/03/19 08:00 96.8 68 18 154/74 (100) 99 10/03/19 04:00 21 10/03/19 04:00 69 10/03/19 04:00 97.7 69 18 141/69 (93) 100 10/03/19 04:00 Mechanical Ventilator 10/03/19 03:05 71 19 100 Mechanical Ventilator 21 10/03/19 02:50 67 18 Mechanical Ventilator 21 21 10/03/19 00:00 98.1 66 18 139/76 (97) 100 10/03/19 00:00 21 10/03/19 00:00 Mechanical Ventilator 10/03/19 00:00 66 10/02/19 23:55 67 20 99 Mechanical Ventilator 21 10/02/19 23:40 69 19 Mechanical Ventilator 21 21 10/02/19 23:28 71 143/78 10/02/19 20:00 97.0 71 19 143/78 (99) 100 10/02/19 19:56 Mechanical Ventilator 10/02/19 19:38 66 18 100 Mechanical Ventilator 21 10/02/19 19:23 65 18 Mechanical Ventilator 21 21 10/02/19 17:42 66 169/94 10/02/19 17:07 66 18 21 10/02/19 16:00 21 10/02/19 16:00 64 10/02/19 16:00 98.4 62 18 169/94 (119) 100 10/02/19 16:00 Mechanical Ventilator 10/02/19 13:00 57 19 21 10/02/19 12:00 97.8 60 18 133/49 (77) 100 10/02/19 12:00 Mechanical Ventilator 10/02/19 12:00 57 10/02/19 12:00 30 10/02/19 11:04 58 20 100 Mechanical Ventilator 30 61 19 30 Intake and Output 10/02/19 10/03/19 19:00 07:00 Intake Total 570 ml 485 ml Output Total 250 ml 200 ml Balance 320 ml 285 ml Intake Free Water 150 ml 100 ml Tube Feeding 420 ml 385 ml Output Urine Total 250 ml 200 ml # Bowel Movements 2 3 Laboratory Tests 10/03/19 03:20: White Blood Count 10.1, Red Blood Count 2.65L, Hemoglobin 8.0L, Hematocrit 23.4L , Mean Corpuscular Volume 89, Mean Corpuscular Hemoglobin 30.1, Mean Corpuscular Hemoglobin Concent 34.0, Red Cell Distribution Width 15.1H, Platelet Count 223, Mean Platelet Volume 5.2L, Neutrophils (%) (Auto) 63.2, Lymphocytes (%) (Auto) 30.3, Monocytes (%) (Auto) 3.1, Eosinophils (%) (Auto) 2.8, Basophils (%) (Auto) 0.7, Sodium Level 139, Potassium Level 3.8, Chloride Level 102, Carbon Dioxide Level 21, Anion Gap 16H, Blood Urea Nitrogen 167H, Creatinine 4.0H, Estimat Glomerular Filtration Rate 10.8, Glucose Level 165H, Calcium Level 8.2L, Total Bilirubin 0.4, Aspartate Amino Transf (AST/SGOT) 283H , Alanine Aminotransferase (ALT/SGPT) 287H, Alkaline Phosphatase 430H, Total Protein 6.8, Albumin 2.1L, Globulin 4.7, Albumin/Globulin Ratio 0.4L Height (Feet): 5 Height (Inches): 4.00 Weight (Pounds): 112 Objective General Appearance: WD/WN, awake. looks around. no distress. thin and frail Neck: supple +trach Cardiovascular: normal rate Respiratory/Chest: rhonchi - bilaterally Abdomen: normal bowel sounds, non tender, soft, no organomegaly Edema: no edema noted Arm (L), no edema noted Arm (R), no edema noted Leg (L), no edema noted Leg (R), no edema noted Pedal (L), no edema noted Pedal (R), no edema noted Generalized Neurologic: disoriented, aphasia Skin: +excoriations Nate Beltran MD Oct 03, 2019 09:21
--- NOTE | 2019-10-03 09:55 | Surgery Progress Note ---
Surgery Progress Note Subjective Procedure Performed 1. tracheostomy 2 removal of left tube thoracostomy Additional Comments comfortable appearing no n/v/f/c labs okay Objective Last 24 Hour Vital Signs Date Time Temp Pulse Resp B/P (MAP) Pulse Ox O2 Delivery O2 Flow Rate FiO2 10/03/19 08:02 56 20 100 Mechanical Ventilator 21 55 18 21 10/03/19 08:00 96.8 68 18 154/74 (100) 99 10/03/19 04:00 21 10/03/19 04:00 69 10/03/19 04:00 97.7 69 18 141/69 (93) 100 10/03/19 04:00 Mechanical Ventilator 10/03/19 03:05 71 19 100 Mechanical Ventilator 21 10/03/19 02:50 67 18 Mechanical Ventilator 21 21 10/03/19 00:00 98.1 66 18 139/76 (97) 100 10/03/19 00:00 21 10/03/19 00:00 Mechanical Ventilator 10/03/19 00:00 66 10/02/19 23:55 67 20 99 Mechanical Ventilator 21 10/02/19 23:40 69 19 Mechanical Ventilator 21 21 10/02/19 23:28 71 143/78 10/02/19 20:00 97.0 71 19 143/78 (99) 100 10/02/19 19:56 Mechanical Ventilator 10/02/19 19:38 66 18 100 Mechanical Ventilator 21 10/02/19 19:23 65 18 Mechanical Ventilator 21 21 10/02/19 17:42 66 169/94 10/02/19 17:07 66 18 21 10/02/19 16:00 21 10/02/19 16:00 64 10/02/19 16:00 98.4 62 18 169/94 (119) 100 10/02/19 16:00 Mechanical Ventilator 10/02/19 13:00 57 19 21 10/02/19 12:00 97.8 60 18 133/49 (77) 100 10/02/19 12:00 Mechanical Ventilator 10/02/19 12:00 57 10/02/19 12:00 30 10/02/19 11:04 58 20 100 Mechanical Ventilator 30 61 19 30 I&O Intake and Output 10/02/19 10/03/19 19:00 07:00 Intake Total 570 ml 485 ml Output Total 250 ml 200 ml Balance 320 ml 285 ml Intake Free Water 150 ml 100 ml Tube Feeding 420 ml 385 ml Output Urine Total 250 ml 200 ml # Bowel Movements 2 3 Dressing: other Wound: other Drains: other Cardiovascular: RSR Respiratory: decreased breath sounds Abdomen: soft, non-tender, present bowel sounds Extremities: no tenderness, no cyanosis Laboratory Tests Test 10/03/19 03:20 White Blood Count 10.1 K/UL (4.8-10.8) Red Blood Count 2.65 M/UL (4.20-5.40) L Hemoglobin 8.0 G/DL (12.0-16.0) L Hematocrit 23.4 % (37.0-47.0) L Mean Corpuscular Volume 89 FL (80-99) Mean Corpuscular Hemoglobin 30.1 PG (27.0-31.0) Mean Corpuscular Hemoglobin Concent 34.0 G/DL (32.0-36.0) Red Cell Distribution Width 15.1 % (11.6-14.8) H Platelet Count 223 K/UL (150-450) Mean Platelet Volume 5.2 FL (6.5-10.1) L Neutrophils (%) (Auto) 63.2 % (45.0-75.0) Lymphocytes (%) (Auto) 30.3 % (20.0-45.0) Monocytes (%) (Auto) 3.1 % (1.0-10.0) Eosinophils (%) (Auto) 2.8 % (0.0-3.0) Basophils (%) (Auto) 0.7 % (0.0-2.0) Sodium Level 139 MMOL/L (136-145) Potassium Level 3.8 MMOL/L (3.5-5.1) Chloride Level 102 MMOL/L (98-107) Carbon Dioxide Level 21 MMOL/L (21-32) Anion Gap 16 mmol/L (5-15) H Blood Urea Nitrogen 167 mg/dL (7-18) H Creatinine 4.0 MG/DL (0.55-1.30) H Estimat Glomerular Filtration Rate 10.8 mL/min (>60) Glucose Level 165 MG/DL (74-106) H Calcium Level 8.2 MG/DL (8.5-10.1) L Total Bilirubin 0.4 MG/DL (0.2-1.0) Aspartate Amino Transf (AST/SGOT) 283 U/L (15-37) H Alanine Aminotransferase (ALT/SGPT) 287 U/L (12-78) H Alkaline Phosphatase 430 U/L (46-116) H Total Protein 6.8 G/DL (6.4-8.2) Albumin 2.1 G/DL (3.4-5.0) L Globulin 4.7 g/dL Albumin/Globulin Ratio 0.4 (1.0-2.7) L Assessment Post-op Diagnosis same Plan Problems: (1) Malnutrition Assessment & Plan: DAILY ESTIMATED NEEDS: Needs based on ESRD+ HD, underweight, wound/ 39.5kg 35-40 kcals/kg 5997-3979 total kcals 1.25-1.8 g protein/kg 49-71 g total protein 20-22 mL/kg 790-869 total fluid mLs NUTRITION DIAGNOSIS: * Increased kcal and protein needs r/t underweight status, HD needs, wuond healing as evidenced by pt is underweight per guidelines, ESRD, on HD, admitted non-blanching erythema wounds @ BL heels and sacrum * Swallowing difficulty R/T dysphagia as evidenced by [employer] recommends temporary nonoral feeding at this time, s/p NGT insertion, on NGT feeding-> now s/p self removal, NPO. CURRENT TF:NPO PO DIET RECOMMENDATIONS: WHEN SAFE FOR ORAL DIET -> renal/ texture per [employer] ENTERAL NUTRITION RECOMMENDATIONS: W/ GI access: Nepro @ 35ml/hr x 22 hrs to provide 770ml, 1386kcal, 62g prot, 560ml free water * W/ GI access, resume TF on Nepro * Initiate Nepro @ 15ml/hr x 6 hrs, advance 10ml q 4-6 hrs as tolerated to goal rate. * Hold 1 hour before and after Synthroid med * HOB over 30 degrees/ water flush per MD. ADDITIONAL RECOMMENDATIONS: 1) Calibrated bed scale wt for accurate CBW -> daily wt monitoring Per HD record: dry wt on 07/30=39.5kg (87lbs) 2) Wound care: (W/ GI access) add Nephorivte x 1 + Balta BID 3) Monitor NPO status: without GI access at this time, s/p pulling out NGT 4) Monitor for hypoglycemia while NPO 5) Monitor for continuity of HD (2) Septic arthritis Assessment & Plan: Pt presented on admission with generalized scaly rash . pt noted to be restless and scratching at skin. Bleeding from oral mucosa noted. Joint deformity noted to R shoulder. Surgical incision approximated with 11 sutures. Erythema but no exudate,or elevation in skin temp at site of incision. Historical incision R hip that is tunneled.Small amt seropurulent exudate noted. Periwound is erythematous,but no elevation in skin temp noted. No odor noted. Non-blanching erythema noted to sacrum. Perianal area is erythematous and excoriated. L heel is boggy with non-blanching erythema. R heel is soft with non-blanching erythema. No evidence of skin breakdown to all other bony prominences. Tx.plan: Cover R shoulder with Drsg and change daily and prn. Cleanse R hip wound with Saline. Apply Therahoney.Apply Cavilon Skin Barrier periwound. Cover with Optifoam drsg. Change every 3 days and prn. Apply Moisture Barrier Paste to perianal area and buttocks. Cover Sacrum with Optifoam drsg. Change every 3 days and prn. Apply Cavilon Skin Barrier to both heels. Cover each heel with Optifoam drsg. Change every 7 days and prn. APM/ELVIA Mattress overlay. Reposition at least every 2hours or as tolerated. Off-load heels with pillow. HD cath necessary HD as renal likely will need intubation 19 x 11 x 11 mm hypoechoic area in the liver adjacent to the gallbladder fossa. Although location is typical for area of focal sparing in a fatty liver, there are no findings to indicate fatty liver and this is a new finding since fairly recent previous exam. Therefore the possibility of a process such as small abscess should be considered. Atrophic echogenic kidneys Negative for gallstones or dilated bile ducts (3) Wound, open, hip or thigh with complication Assessment & Plan: slow healing will need nutritional optimization difficult ng tube peg when stable sutures removed from right shoulder comfortable wean vent may need trach (4) Abscess of right hip (5) possible septic arthritis (6) Renal failure (ARF), acute on chronic Assessment & Plan: cont HD will need tunneled cath placement okay to use fem line for now but will need change soon. line monitored and clean dressings going well (7) Pneumonia Assessment & Plan: intubated on vent support not tolerating weaning may need trach hemothorax likely after thoracentesis Chest CT noted Left chest tube placed With plan for trach chest tube can be considered but overall prognosis is very poor s/p trach left chest tub eout cxr noted and okay downgrade left pleural effusion dressings saturated will need to monitor. may need another chest tube as may not heal well on left side Anasarca, with as mentioned above diffuse edema of the soft tissues, trace ascites, and bilateral pleural effusions No hepatic abnormality to correlate with suspected small pericholecystic lesion in the liver described on recent sonogram. The lesion may be occult on noncontrast CT, may have been artifactual or may have resolved in the interim. Consider repeat sonography in a few days to assess progression No definite acute abdominal process otherwise Improved but still sizable left pleural effusion with minimal residual hemoperitoneum since prior CT scan of 09/01/2019. There is near complete atelectasis of the left lower lobe. There is a small right pleural effusion with atelectatic changes of the right lower lobe and right perihilar dense consolidation. These appear improved since a prior CT of 09/01/2019 Increased crazy paving type opacity within the right middle lobe since previous August [address], may reflect an area of increasing infiltrate, versus focal edema. There is also some dense consolidation of the perihilar right lower lobe which is improved since the previous August 31 CT Right groin temporary dialysis catheter in good position Atrophic kidneys, consistent with known history of chronic renal disease L2 compression fracture deformity, and advanced degenerative changes of the L2- L3 disc. Similar to prior study Marroquin catheter hold on repeat chest tube (8) Liver enzyme elevation Assessment & Plan: likely shock liver improving trend Camilo James Oct 03, 2019 09:55
--- NOTE | 2019-10-03 10:49 | Nephrology Progress Note ---
Assessment/Plan Problem List: (1) Liver enzyme elevation Assessment: Acute (2) ESRD (end stage renal disease) on dialysis (3) Malnutrition (4) Anemia in CKD (chronic kidney disease) (5) Hypotension (6) Thrombocytopenia (7) Sepsis Assessment: klebsiella in blood Assessment -Early sepsis with shock. -Healthcare-associated pneumonia. -Severe protein-calorie malnutrition. -Thrombocytopenia. - End-stage renal disease. - History of hypertension. - Bradycardia. - HypoThyroid Plan Hemodialysis today Started on steroid for high LFT and high smooth muscle antibody labs reviewed Smooth muscle antibody positive, Ig G elevated Liver enzymes elevated Tracheostomy September 07 Last dialysis September 26, next dialysis today October 02 Chest tube on the left side was put in on September 01 was discontinued September 07 Patient transfused 3 units of packed RBCs for low hemoglobin Remains full code Blood pressure fluctuating, will start hydralazine via NG tube for blood pressure Magnesium and potassium supplement intravenously as needed Patient underwent PEG placement August 16 patient remains intubated on ventilator Discussed with RN Aim to wean from ventilator or consider tracheostomy Permacath was removed on August 12 Dialysis 08/11 Transfusion as needed Patient had hematemesis meds IV as possible Surveillance blood cultures tomorrow Plan to put the permacath back in on Thursday if cultures are negative keep BP and BS in check Inflammatory markers per orders Subjective ROS Limited/Unobtainable: Yes Objective Objective Last 24 Hour Vital Signs Date Time Temp Pulse Resp B/P (MAP) Pulse Ox O2 Delivery O2 Flow Rate FiO2 10/03/19 08:02 56 20 100 Mechanical Ventilator 21 55 18 21 10/03/19 08:00 Mechanical Ventilator 10/03/19 08:00 96.8 68 18 154/74 (100) 99 10/03/19 08:00 21 10/03/19 07:53 68 10/03/19 04:00 21 10/03/19 04:00 69 10/03/19 04:00 97.7 69 18 141/69 (93) 100 10/03/19 04:00 Mechanical Ventilator 10/03/19 03:05 71 19 100 Mechanical Ventilator 21 10/03/19 02:50 67 18 Mechanical Ventilator 21 21 10/03/19 00:00 98.1 66 18 139/76 (97) 100 10/03/19 00:00 21 10/03/19 00:00 Mechanical Ventilator 10/03/19 00:00 66 10/02/19 23:55 67 20 99 Mechanical Ventilator 21 10/02/19 23:40 69 19 Mechanical Ventilator 21 21 10/02/19 23:28 71 143/78 10/02/19 20:00 97.0 71 19 143/78 (99) 100 10/02/19 19:56 Mechanical Ventilator 10/02/19 19:38 66 18 100 Mechanical Ventilator 21 10/02/19 19:23 65 18 Mechanical Ventilator 21 21 10/02/19 17:42 66 169/94 10/02/19 17:07 66 18 21 10/02/19 16:00 21 10/02/19 16:00 64 10/02/19 16:00 98.4 62 18 169/94 (119) 100 10/02/19 16:00 Mechanical Ventilator 10/02/19 13:00 57 19 21 10/02/19 12:00 97.8 60 18 133/49 (77) 100 10/02/19 12:00 Mechanical Ventilator 10/02/19 12:00 57 10/02/19 12:00 30 10/02/19 11:04 58 20 100 Mechanical Ventilator 30 61 19 30 Intake and Output 10/02/19 10/03/19 19:00 07:00 Intake Total 570 ml 485 ml Output Total 250 ml 200 ml Balance 320 ml 285 ml Intake Free Water 150 ml 100 ml Tube Feeding 420 ml 385 ml Output Urine Total 250 ml 200 ml # Bowel Movements 2 3 Laboratory Tests 10/03/19 03:20: White Blood Count 10.1, Red Blood Count 2.65L, Hemoglobin 8.0L, Hematocrit 23.4L , Mean Corpuscular Volume 89, Mean Corpuscular Hemoglobin 30.1, Mean Corpuscular Hemoglobin Concent 34.0, Red Cell Distribution Width 15.1H, Platelet Count 223, Mean Platelet Volume 5.2L, Neutrophils (%) (Auto) 63.2, Lymphocytes (%) (Auto) 30.3, Monocytes (%) (Auto) 3.1, Eosinophils (%) (Auto) 2.8, Basophils (%) (Auto) 0.7, Sodium Level 139, Potassium Level 3.8, Chloride Level 102, Carbon Dioxide Level 21, Anion Gap 16H, Blood Urea Nitrogen 167H, Creatinine 4.0H, Estimat Glomerular Filtration Rate 10.8, Glucose Level 165H, Calcium Level 8.2L, Total Bilirubin 0.4, Aspartate Amino Transf (AST/SGOT) 283H , Alanine Aminotransferase (ALT/SGPT) 287H, Alkaline Phosphatase 430H, Total Protein 6.8, Albumin 2.1L, Globulin 4.7, Albumin/Globulin Ratio 0.4L Height (Feet): 5 Height (Inches): 4.00 Weight (Pounds): 112 General Appearance: no apparent distress EENT: other - Trach and vent Cardiovascular: normal rate Respiratory/Chest: decreased breath sounds Abdomen: soft, other - GT in place Objective no change William Blackwood MD Oct 03, 2019 10:49
--- NOTE | 2019-10-03 10:50 | Critical Care Progress Note ---
Assessment/Plan Assessment/Plan respiratory failure hypoxemia chronic renal failure toxic met encephalopathy severe protein calorie malnutrition cachexia left lung whiteout/collapse, anemia pulmonary edema + pleural effusion s/p CT placement and removal s/p trach hypernatremia PLAN trach care as is await repeat imaging for further intervention care noted and reviewed monitor for fluid retention reviewed care and continue to monitor weaning unable renal follow up and dialysis prognosis poor overall for change keep negative and monitor osmotic pressures fully dependent for now close follow up discussed elevated head and monitor ROM watch fluid status and keep negative nutrition and monitor residuals doubt any significant improvement off load as able and monitor skin exam ROM as able and monitor contractures prognosis poor for recovery will need LTAC impression, plan, and exam edited and reviewed in detail 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 - Subjective Interval Events: care noted on vent poor LOC ROS Limited/Unobtainable: Yes Condition: critical EKG Rhythm: Sinus Rhythm Residuals: minimal Tube Feeding Tolerated: yes I&O: Intake and Output 10/02/19 10/03/19 19:00 07:00 Intake Total 570 ml 485 ml Output Total 250 ml 200 ml Balance 320 ml 285 ml Intake Free Water 150 ml 100 ml Tube Feeding 420 ml 385 ml Output Urine Total 250 ml 200 ml # Bowel Movements 2 3 Critical Care - Objective ET-Tube: 7.0 ET Position: 19 Last 24 Hour Vital Signs Date Time Temp Pulse Resp B/P (MAP) Pulse Ox O2 Delivery O2 Flow Rate FiO2 10/03/19 08:02 56 20 100 Mechanical Ventilator 21 55 18 21 10/03/19 08:00 Mechanical Ventilator 10/03/19 08:00 96.8 68 18 154/74 (100) 99 10/03/19 08:00 21 10/03/19 07:53 68 10/03/19 04:00 21 10/03/19 04:00 69 10/03/19 04:00 97.7 69 18 141/69 (93) 100 10/03/19 04:00 Mechanical Ventilator 10/03/19 03:05 71 19 100 Mechanical Ventilator 21 10/03/19 02:50 67 18 Mechanical Ventilator 21 21 10/03/19 00:00 98.1 66 18 139/76 (97) 100 10/03/19 00:00 21 10/03/19 00:00 Mechanical Ventilator 10/03/19 00:00 66 10/02/19 23:55 67 20 99 Mechanical Ventilator 21 10/02/19 23:40 69 19 Mechanical Ventilator 21 21 10/02/19 23:28 71 143/78 10/02/19 20:00 97.0 71 19 143/78 (99) 100 10/02/19 19:56 Mechanical Ventilator 10/02/19 19:38 66 18 100 Mechanical Ventilator 21 10/02/19 19:23 65 18 Mechanical Ventilator 21 21 10/02/19 17:42 66 169/94 10/02/19 17:07 66 18 21 10/02/19 16:00 21 10/02/19 16:00 64 10/02/19 16:00 98.4 62 18 169/94 (119) 100 10/02/19 16:00 Mechanical Ventilator 10/02/19 13:00 57 19 21 10/02/19 12:00 97.8 60 18 133/49 (77) 100 10/02/19 12:00 Mechanical Ventilator 10/02/19 12:00 57 10/02/19 12:00 30 10/02/19 11:04 58 20 100 Mechanical Ventilator 30 61 19 30 Labs: Labs Test 10/01/19 04:35 10/02/19 06:10 10/03/19 03:20 Sodium Level 137 MMOL/L (136-145) 139 MMOL/L (136-145) 139 MMOL/L (136-145) Potassium Level 3.8 MMOL/L (3.5-5.1) 3.7 MMOL/L (3.5-5.1) 3.8 MMOL/L (3.5-5.1) Chloride Level 100 MMOL/L (98-107) 100 MMOL/L (98-107) 102 MMOL/L (98-107) Carbon Dioxide Level 25 MMOL/L (21-32) 24 MMOL/L (21-32) 21 MMOL/L (21-32) Anion Gap 12 mmol/L (5-15) 15 mmol/L (5-15) 16 mmol/L (5-15) Blood Urea Nitrogen 139 mg/dL (7-18) 156 mg/dL (7-18) 167 mg/dL (7-18) Creatinine 3.7 MG/DL (0.55-1.30) 3.9 MG/DL (0.55-1.30) 4.0 MG/DL (0.55-1.30) Estimat Glomerular Filtration Rate 11.8 mL/min (>60) 11.1 mL/min (>60) 10.8 mL/min (>60) Glucose Level 138 MG/DL (74-106) 181 MG/DL (74-106) 165 MG/DL (74-106) Calcium Level 8.6 MG/DL (8.5-10.1) 8.6 MG/DL (8.5-10.1) 8.2 MG/DL (8.5-10.1) Total Bilirubin 0.5 MG/DL (0.2-1.0) 0.5 MG/DL (0.2-1.0) 0.4 MG/DL (0.2-1.0) Aspartate Amino Transf (AST/SGOT) 284 U/L (15-37) 313 U/L (15-37) 283 U/L (15-37) Alanine Aminotransferase (ALT/SGPT) 297 U/L (12-78) 415 U/L (12-78) 287 U/L (12-78) Alkaline Phosphatase 411 U/L (46-116) 497 U/L (46-116) 430 U/L (46-116) Total Protein 7.0 G/DL (6.4-8.2) 7.5 G/DL (6.4-8.2) 6.8 G/DL (6.4-8.2) Albumin 2.2 G/DL (3.4-5.0) 2.5 G/DL (3.4-5.0) 2.1 G/DL (3.4-5.0) Globulin 4.8 g/dL 5.4 g/dL 4.7 g/dL Albumin/Globulin Ratio 0.5 (1.0-2.7) 0.4 (1.0-2.7) 0.4 (1.0-2.7) Immunoglobulin G 2277 mg/dL (586-1602) White Blood Count 12.0 K/UL (4.8-10.8) 10.1 K/UL (4.8-10.8) Red Blood Count 2.99 M/UL (4.20-5.40) 2.65 M/UL (4.20-5.40) Hemoglobin 8.9 G/DL (12.0-16.0) 8.0 G/DL (12.0-16.0) Hematocrit 26.8 % (37.0-47.0) 23.4 % (37.0-47.0) Mean Corpuscular Volume 90 FL (80-99) 89 FL (80-99) Mean Corpuscular Hemoglobin 29.8 PG (27.0-31.0) 30.1 PG (27.0-31.0) Mean Corpuscular Hemoglobin Concent 33.2 G/DL (32.0-36.0) 34.0 G/DL (32.0-36.0) Red Cell Distribution Width 14.8 % (11.6-14.8) 15.1 % (11.6-14.8) Platelet Count 273 K/UL (150-450) 223 K/UL (150-450) Mean Platelet Volume 4.9 FL (6.5-10.1) 5.2 FL (6.5-10.1) Neutrophils (%) (Auto) 67.4 % (45.0-75.0) 63.2 % (45.0-75.0) Lymphocytes (%) (Auto) 26.7 % (20.0-45.0) 30.3 % (20.0-45.0) Monocytes (%) (Auto) 3.7 % (1.0-10.0) 3.1 % (1.0-10.0) Eosinophils (%) (Auto) 1.6 % (0.0-3.0) 2.8 % (0.0-3.0) Basophils (%) (Auto) 0.6 % (0.0-2.0) 0.7 % (0.0-2.0) Phosphorus Level 5.1 MG/DL (2.5-4.9) Magnesium Level 2.8 MG/DL (1.8-2.4) Direct Bilirubin 0.2 MG/DL (0.0-0.3) Gamma Glutamyl Transpeptidase 138 U/L (5-85) C-Reactive Protein, Quantitative 13.6 mg/dL (0.00-0.90) Objective: WDWN NAD trach in place reduced breath sounds without rhonchi or wheeze [id number] without MRG NABS nontender no HSM no CCE contractures feeding tube in place no distention reduced LOC and weak nonfocal cachectic reviewed and edited Accucheck: 89 Malcolm Cruz MD Oct 03, 2019 10:50
--- NOTE | 2019-10-03 10:53 | Infectious Diseases Prog Note ---
Assessment/Plan Assessment/Plan antibiotics : none A 1. jarad albicans fungemia s/p rx 2. right shoulder septic arthritis with staph aureus s/p rx 3. pleural effusion 4. thrombocytopenia resolved 7. diabetes mellitus 8. hypertension 9. respiratory failure P 1. observe off antibiotics Subjective ROS Limited/Unobtainable: Yes Allergies: Coded Allergies: VANCOMYCIN (Unverified Allergy, Unknown, 08/02/19) Objective Vital Signs Last 24 Hour Vital Signs Date Time Temp Pulse Resp B/P (MAP) Pulse Ox O2 Delivery O2 Flow Rate FiO2 10/03/19 08:02 56 20 100 Mechanical Ventilator 21 55 18 21 10/03/19 08:00 Mechanical Ventilator 10/03/19 08:00 96.8 68 18 154/74 (100) 99 10/03/19 08:00 21 10/03/19 07:53 68 10/03/19 04:00 21 10/03/19 04:00 69 10/03/19 04:00 97.7 69 18 141/69 (93) 100 10/03/19 04:00 Mechanical Ventilator 10/03/19 03:05 71 19 100 Mechanical Ventilator 21 10/03/19 02:50 67 18 Mechanical Ventilator 21 21 10/03/19 00:00 98.1 66 18 139/76 (97) 100 10/03/19 00:00 21 10/03/19 00:00 Mechanical Ventilator 10/03/19 00:00 66 10/02/19 23:55 67 20 99 Mechanical Ventilator 21 10/02/19 23:40 69 19 Mechanical Ventilator 21 21 10/02/19 23:28 71 143/78 10/02/19 20:00 97.0 71 19 143/78 (99) 100 10/02/19 19:56 Mechanical Ventilator 10/02/19 19:38 66 18 100 Mechanical Ventilator 21 10/02/19 19:23 65 18 Mechanical Ventilator 21 21 10/02/19 17:42 66 169/94 10/02/19 17:07 66 18 21 10/02/19 16:00 21 10/02/19 16:00 64 10/02/19 16:00 98.4 62 18 169/94 (119) 100 10/02/19 16:00 Mechanical Ventilator 10/02/19 13:00 57 19 21 10/02/19 12:00 97.8 60 18 133/49 (77) 100 10/02/19 12:00 Mechanical Ventilator 10/02/19 12:00 57 10/02/19 12:00 30 10/02/19 11:04 58 20 100 Mechanical Ventilator 30 61 19 30 Height (Feet): 5 Height (Inches): 4.00 Weight (Pounds): 112 HEENT: status post trach Respiratory/Chest: lungs clear Cardiovascular: normal rate, regular rhythm, no gallop/murmur Abdomen: soft, non tender, other - GT Extremities: no edema, other - right groin catheter Laboratory Tests Test 10/03/19 03:20 White Blood Count 10.1 K/UL (4.8-10.8) Red Blood Count 2.65 M/UL (4.20-5.40) L Hemoglobin 8.0 G/DL (12.0-16.0) L Hematocrit 23.4 % (37.0-47.0) L Mean Corpuscular Volume 89 FL (80-99) Mean Corpuscular Hemoglobin 30.1 PG (27.0-31.0) Mean Corpuscular Hemoglobin Concent 34.0 G/DL (32.0-36.0) Red Cell Distribution Width 15.1 % (11.6-14.8) H Platelet Count 223 K/UL (150-450) Mean Platelet Volume 5.2 FL (6.5-10.1) L Neutrophils (%) (Auto) 63.2 % (45.0-75.0) Lymphocytes (%) (Auto) 30.3 % (20.0-45.0) Monocytes (%) (Auto) 3.1 % (1.0-10.0) Eosinophils (%) (Auto) 2.8 % (0.0-3.0) Basophils (%) (Auto) 0.7 % (0.0-2.0) Sodium Level 139 MMOL/L (136-145) Potassium Level 3.8 MMOL/L (3.5-5.1) Chloride Level 102 MMOL/L (98-107) Carbon Dioxide Level 21 MMOL/L (21-32) Anion Gap 16 mmol/L (5-15) H Blood Urea Nitrogen 167 mg/dL (7-18) H Creatinine 4.0 MG/DL (0.55-1.30) H Estimat Glomerular Filtration Rate 10.8 mL/min (>60) Glucose Level 165 MG/DL (74-106) H Calcium Level 8.2 MG/DL (8.5-10.1) L Total Bilirubin 0.4 MG/DL (0.2-1.0) Aspartate Amino Transf (AST/SGOT) 283 U/L (15-37) H Alanine Aminotransferase (ALT/SGPT) 287 U/L (12-78) H Alkaline Phosphatase 430 U/L (46-116) H Total Protein 6.8 G/DL (6.4-8.2) Albumin 2.1 G/DL (3.4-5.0) L Globulin 4.7 g/dL Albumin/Globulin Ratio 0.4 (1.0-2.7) L Current Medications Medications (Trade) Dose Ordered Sig/Javier Route PRN Reason Start Time Stop Time Status Last Admin Dose Admin Acetylcysteine (Mucomyst) 100 mg Q4HRT [facility] 08/31/19 19:00 11/29/19 18:59 10/03/19 07:47 Albuterol/ Ipratropium (Albuterol/ Ipratropium) 3 ml Q4HRT N 09/22/19 15:00 12/09/19 14:59 10/03/19 07:47 Amlodipine Besylate (Norvasc) 5 mg BID ORAL 09/25/19 09:00 10/25/19 08:59 10/02/19 17:42 Chlorhexidine Gluconate (Nae-Hex 2%) 1 applic DAILY@2000 TOPIC 09/17/19 20:00 12/16/19 19:59 10/02/19 23:28 Clonidine HCl (Catapres Tab) 0.1 mg Q4H PRN ORAL For High Blood Pressure 09/22/19 21:00 12/21/19 20:59 09/30/19 13:28 Dextrose (Dextrose 50%) 25 ml Q30M PRN IV Hypoglycemia 09/02/19 06:15 12/01/19 06:14 09/04/19 12:11 Dextrose (Dextrose 50%) 50 ml Q30M PRN IV Hypoglycemia 09/02/19 06:15 12/01/19 06:14 Lansoprazole (Prevacid) 30 mg DAILY GT 09/27/19 09:00 10/27/19 08:59 10/03/19 09:03 Levothyroxine Sodium (Synthroid) 125 mcg DAILY@0630 ORAL 09/22/19 06:30 10/22/19 06:29 10/03/19 05:22 Losartan Potassium (Cozaar) 50 mg DAILY GT 10/03/19 09:00 11/02/19 08:59 Metoprolol Tartrate (Lopressor) 25 mg Q12HR ORAL 10/01/19 09:00 12/30/19 08:59 10/02/19 23:28 Prednisone (predniSONE) 30 mg DAILY ORAL 10/03/19 09:00 11/02/19 08:59 10/03/19 09:03 Psyllium Hydrophilic Mucilloid (Metamucil) 1 pkt DAILY ORAL 09/22/19 15:00 10/22/19 14:59 10/03/19 09:02 Sevelamer Carbonate (Renvela) 800 mg Q8HR NG 09/25/19 14:00 12/24/19 13:59 10/03/19 05:22 Melissa Solares MD Oct 03, 2019 10:53
[2019-10-03 11:57] VITALS: BP 172/80
--- NOTE | 2019-10-03 14:07 | Hematology/Onc Progress Note ---
Assessment/Plan Assessment/Plan # Thrombocytopenia ow THROMBOCYTOSIS - potential causes multifactorial, evaluate liver and viral etiologies to begin, in this case due to sepsis with septic shock also with cirrhosis and liver disease --> Hep panel and HIV ordered --> neg --> US abd to evaluate for cirrhosis and hsm ordered --> reviewed --> Peripheral smear ordered to evaluate for blasts /schistocytes --> none noted --> abx and other meds have been reviewed --> ok for ppx if plt >50k w/ either heparin or lovenox --> Transfuse if Plt < 20k and fever, or if Plt < 10k without fever --> okay for permacath change once plt better--> for 08/14 --> plt trend: 43-->83-->237k-->292-->341-->315-->388 -->444-->530-->252k-->344- >529->525k-->273 # Anemia of chronic disease due to underlying chronic medical issues, multifactorial v Gi bleed --> Anemia workup has been ordered, rule out gi bleed --> No evidence of hemolysis is noted, peripheral smear has been reviewed. --> Hgb goal >7. Transfuse prn. --> Epogen has been started --> HOLD OFF IRON ferritin is >1000 --> Medications have been reviewed --> low threshold for gi evaluation in case has occult + --> hgb 9-->6.7-->9.2 -->10.5-->10.6 -->10.7-->10-->10.5-->9.8-->10.4-->9.5--> 3.6-->9.6-->9.7-->10-->10.3-->11->9.9->8.3->8.7-->8.1-->8.9 --> blood tx: 08/11, 08/31 --> CT Chest r/o hemothorax --> does show confirmation of a large left hemothorax. Complete atelectasis of the left lower lobe and partial left upper lobe atelectasis demonstrated. Mild rightward shift of the heart and mediastinum. --> stool ob negative # Sepsis with shock. --> abx as per id, recs noted--> off abx --> pressors as needed # Healthcare-associated pneumonia. --> recs reviewed --> abx: jung/micafungin-->jung-->off --> 08/24 chest: moderate left pleural effusion # Severe protein-calorie malnutrition. --> nutritional support # End-stage renal disease --> had as renal hd --> with permacath # History of hypertension. --> per cards, now with Bradycardia. # Resp failure s/p vent/trach # HypoThyroid # Ngt feedings # Dvt ppx scd's The timing of this note does not necessarily reflect the time of the patient was seen. Greatly appreciate consultation. Subjective Constitutional: Denies: no symptoms, chills, fever, malaise, weakness, other HEENT: Denies: no symptoms, eye pain, blurred vision, tearing, double vision, ear pain, ear discharge, nose pain, nose congestion, throat pain, throat swelling, mouth pain, mouth swelling, other Cardiovascular: Denies: no symptoms, chest pain, edema, irregular heart rate, lightheadedness, palpitations, syncope, other Respiratory: Denies: no symptoms, cough, shortness of breath, SOB with excertion, SOB at rest, sputum, wheezing, other Gastrointestinal/Abdominal: Denies: no symptoms, abdomen distended, abdominal pain, black stools, tarry stools, blood in stool, constipated, diarrhea, difficulty swallowing, nausea, poor appetite, poor fluid intake, rectal bleeding , vomiting, other Endocrine: Denies: no symptoms, excessive sweating, flushing, intolerance to cold, intolerance to heat, increased hunger, increased thirst, increased urine, unexplained weight gain, unexplained weight loss, other Allergies: Coded Allergies: VANCOMYCIN (Unverified Allergy, Unknown, 08/02/19) Subjective 08/11: no bleeding or chills, labs reviewed, no major bleeding, plt less than 50k 08/12: icu, s/p blood, hgb improved to 9.2, 08/14: icu, pending consent for thora and permacath, labs reviewed 08/15: new permacath placed, no bleeding, for hd, plt much improved, started lovenox sq 08/16: ett to be adjusted, bp on high end, micafungin started, possible bronch 08/17: weaning as per pulm, no events otherwise, labs noted 08/18: no events no bleeding, remains confused on vent, for hd 08/20: icu, failed to wean, labs reviewed, jung 08/21: resting in bed, no overnight events, labs reviewed 08/22: awake, confused, restraints, no overnight events 08/23: no events, no bleeding, on ppi bid 08/24: icu, failed to wean, labs reviewed 08/25: no overnight events, us chest, restraints, afebrile 08/26 difficult in weaning, nad, seen by surg, pulm labs noted 08/27 awake on restraints, thoracentesis for am, labs reviewed 08/29 no bleeding, no night sweats, no major changes, on ppi bid 08/30 no major events, remains on vent, no bleeding, dw pcp 08/31 hgb dropped to 3.6, has been transfused with prbc, in icu, dw Rn, ct chest pend 09/01 no major events, no bleeding, labs noted, hgb remains low, hgb 9.6 09/03 lethargic, left chest tube dry/intact, off abx, vent 09/04 remains on a vent, synthroid, labs reviewed 09/05 awake and alert, no acute events, hgb 9.8, no new orders 09/06 no bleeding or chills, labs noted, no major events overnight, david rn 09/07 no events, no night sweats, no bleeding, no fc, remains agitated in the am 09/08 remains in the icu, trach was done, on vent, abx off, on epo 09/10 transferred to sdu, restraints, vent, labs reviewed 09/11 tube feeds have been ongoing, no f/c, labs reviewed 09/12 no events, no bleeding, no night sweats, hgb 10 09/13 tsh is improved, remains confused, hgb is 11, no bleeding 09/14 no events, no bleeding, labs noted, vitals stable 09/15 confused, no acute events, restraints, dc planning 09/17 no new changes, no recent labs, placement pending 09/18 no events, no bleeding, no night sweats, fevers 09/19 nonverbal, vent, elevated bp, off abx 09/20 labs reviewed, david rn, no bleeding, meds reviewed 09/21 is a+o x 1, nonverbal, no bleeding, labs reviewed, no night sweats 09/22 no major events, no bleeding, no night sweats, no f/c, labs noted hgb 10.5 09/25 no events, no bleeding, labs noted, cbc reviewed 09/26 no events, with gtube feeds ongoing and with event, labs noted 09/27 labs have been reviewed, no night sweats, no fc 09/28 labs reviewed, no night sweats, hgb lower, but holding off on transfusion 09/29 alert, stool ob negative, h/h stable, dc planning 10/01 sdu, tsh improved, labs reviewed, elevated bp 10/02 no major events, no bleeding, labs reviewed, hgb 8, nv Objective Objective Current Medications Medications (Trade) Dose Ordered Sig/Javier Route PRN Reason Start Time Stop Time Status Last Admin Dose Admin Acetylcysteine (Mucomyst) 100 mg Q4HRT [facility] 08/31/19 19:00 11/29/19 18:59 10/03/19 11:06 Albuterol/ Ipratropium (Albuterol/ Ipratropium) 3 ml Q4HRT [facility] 09/22/19 15:00 12/09/19 14:59 10/03/19 11:06 Amlodipine Besylate (Norvasc) 5 mg BID ORAL 09/25/19 09:00 10/25/19 08:59 10/02/19 17:42 Chlorhexidine Gluconate (Nae-Hex 2%) 1 applic DAILY@1999 TOPIC 09/17/19 20:00 12/16/19 19:59 10/02/19 23:28 Clonidine HCl (Catapres Tab) 0.1 mg Q4H PRN ORAL For High Blood Pressure 09/22/19 21:00 12/21/19 20:59 09/30/19 13:28 Dextrose (Dextrose 50%) 25 ml Q30M PRN IV Hypoglycemia 09/02/19 06:15 12/01/19 06:14 09/04/19 12:11 Dextrose (Dextrose 50%) 50 ml Q30M PRN IV Hypoglycemia 09/02/19 06:15 12/01/19 06:14 Lansoprazole (Prevacid) 30 mg DAILY GT 09/27/19 09:00 10/27/19 08:59 10/03/19 09:03 Levothyroxine Sodium (Synthroid) 125 mcg DAILY@0630 ORAL 09/22/19 06:30 10/22/19 06:29 10/03/19 05:22 Losartan Potassium (Cozaar) 50 mg DAILY GT 10/03/19 09:00 11/02/19 08:59 Metoprolol Tartrate (Lopressor) 25 mg Q12HR ORAL 10/01/19 09:00 12/30/19 08:59 10/02/19 23:28 Prednisone (predniSONE) 30 mg DAILY ORAL 10/03/19 09:00 11/02/19 08:59 10/03/19 09:03 Psyllium Hydrophilic Mucilloid (Metamucil) 1 pkt DAILY ORAL 09/22/19 15:00 10/22/19 14:59 10/03/19 09:02 Sevelamer Carbonate (Renvela) 800 mg Q8HR NG 09/25/19 14:00 12/24/19 13:59 10/03/19 13:06 Last 24 Hour Vital Signs Date Time Temp Pulse Resp B/P (MAP) Pulse Ox O2 Delivery O2 Flow Rate FiO2 10/03/19 11:58 21 10/03/19 11:57 96.4 65 18 172/80 (110) 96 10/03/19 11:52 Mechanical Ventilator 10/03/19 11:50 66 10/03/19 11:21 77 21 100 Mechanical Ventilator 21 55 19 21 10/03/19 08:02 56 20 100 Mechanical Ventilator 21 55 18 21 10/03/19 08:00 Mechanical Ventilator 10/03/19 08:00 96.8 68 18 154/74 (100) 99 10/03/19 08:00 21 10/03/19 07:53 68 10/03/19 04:00 21 10/03/19 04:00 69 10/03/19 04:00 97.7 69 18 141/69 (93) 100 10/03/19 04:00 Mechanical Ventilator 10/03/19 03:05 71 19 100 Mechanical Ventilator 21 10/03/19 02:50 67 18 Mechanical Ventilator 21 21 10/03/19 00:00 98.1 66 18 139/76 (97) 100 10/03/19 00:00 21 10/03/19 00:00 Mechanical Ventilator 10/03/19 00:00 66 10/02/19 23:55 67 20 99 Mechanical Ventilator 21 10/02/19 23:40 69 19 Mechanical Ventilator 21 21 10/02/19 23:28 71 143/78 10/02/19 20:00 97.0 71 19 143/78 (99) 100 10/02/19 19:56 Mechanical Ventilator 10/02/19 19:38 66 18 100 Mechanical Ventilator 21 10/02/19 19:23 65 18 Mechanical Ventilator 21 21 10/02/19 17:42 66 169/94 10/02/19 17:07 66 18 21 10/02/19 16:00 21 10/02/19 16:00 64 10/02/19 16:00 98.4 62 18 169/94 (119) 100 10/02/19 16:00 Mechanical Ventilator 10/02/19 13:00 57 19 21 10/02/19 12:00 97.8 60 18 133/49 (77) 100 10/02/19 12:00 Mechanical Ventilator 10/02/19 12:00 57 10/02/19 12:00 30 10/02/19 11:04 58 20 100 Mechanical Ventilator 30 61 19 30 10/02/19 08:52 67 166/77 10/02/19 08:51 67 166/77 10/02/19 08:30 67 19 30 10/02/19 08:00 Mechanical Ventilator 10/02/19 08:00 98.0 65 18 166/77 (106) 100 10/02/19 08:00 30 10/02/19 08:00 68 10/02/19 07:15 63 18 100 Mechanical Ventilator 30 64 18 30 10/02/19 05:37 68 19 30 10/02/19 04:09 97.0 65 18 124/76 (92) 96 10/02/19 04:00 68 10/02/19 04:00 Mechanical Ventilator 10/02/19 04:00 30 10/02/19 03:26 67 18 100 Mechanical Ventilator 30 69 18 30 10/02/19 01:42 72 19 30 10/02/19 00:00 97.6 74 18 143/69 (93) 99 10/02/19 00:00 Mechanical Ventilator 10/01/19 23:57 64 10/01/19 22:37 66 18 100 Mechanical Ventilator 30 64 18 30 10/01/19 21:34 61 18 30 10/01/19 20:42 74 152/77 10/01/19 20:28 97.5 70 152/77 (102) 99 10/01/19 20:00 30 10/01/19 20:00 Mechanical Ventilator 10/01/19 20:00 70 10/01/19 19:29 71 18 100 Mechanical Ventilator 30 72 18 30 10/01/19 18:23 71 153/77 10/01/19 16:56 71 18 30 10/01/19 15:52 30 10/01/19 15:52 Mechanical Ventilator 10/01/19 15:51 97.0 70 18 153/77 (102) 100 10/01/19 15:13 70 10/01/19 14:50 67 19 100 Mechanical Ventilator 30 69 18 30 Intake and Output 10/02/19 10/03/19 19:00 07:00 Intake Total 570 ml 485 ml Output Total 250 ml 200 ml Balance 320 ml 285 ml Intake Free Water 150 ml 100 ml Tube Feeding 420 ml 385 ml Output Urine Total 250 ml 200 ml # Bowel Movements 2 3 Labs Test 10/01/19 04:35 10/02/19 06:10 10/03/19 03:20 Sodium Level 137 MMOL/L (136-145) 139 MMOL/L (136-145) 139 MMOL/L (136-145) Potassium Level 3.8 MMOL/L (3.5-5.1) 3.7 MMOL/L (3.5-5.1) 3.8 MMOL/L (3.5-5.1) Chloride Level 100 MMOL/L (98-107) 100 MMOL/L (98-107) 102 MMOL/L (98-107) Carbon Dioxide Level 25 MMOL/L (21-32) 24 MMOL/L (21-32) 21 MMOL/L (21-32) Anion Gap 12 mmol/L (5-15) 15 mmol/L (5-15) 16 mmol/L (5-15) Blood Urea Nitrogen 139 mg/dL (7-18) 156 mg/dL (7-18) 167 mg/dL (7-18) Creatinine 3.7 MG/DL (0.55-1.30) 3.9 MG/DL (0.55-1.30) 4.0 MG/DL (0.55-1.30) Estimat Glomerular Filtration Rate 11.8 mL/min (>60) 11.1 mL/min (>60) 10.8 mL/min (>60) Glucose Level 138 MG/DL (74-106) 181 MG/DL (74-106) 165 MG/DL (74-106) Calcium Level 8.6 MG/DL (8.5-10.1) 8.6 MG/DL (8.5-10.1) 8.2 MG/DL (8.5-10.1) Total Bilirubin 0.5 MG/DL (0.2-1.0) 0.5 MG/DL (0.2-1.0) 0.4 MG/DL (0.2-1.0) Aspartate Amino Transf (AST/SGOT) 284 U/L (15-37) 313 U/L (15-37) 283 U/L (15-37) Alanine Aminotransferase (ALT/SGPT) 297 U/L (12-78) 415 U/L (12-78) 287 U/L (12-78) Alkaline Phosphatase 411 U/L (46-116) 497 U/L (46-116) 430 U/L (46-116) Total Protein 7.0 G/DL (6.4-8.2) 7.5 G/DL (6.4-8.2) 6.8 G/DL (6.4-8.2) Albumin 2.2 G/DL (3.4-5.0) 2.5 G/DL (3.4-5.0) 2.1 G/DL (3.4-5.0) Globulin 4.8 g/dL 5.4 g/dL 4.7 g/dL Albumin/Globulin Ratio 0.5 (1.0-2.7) 0.4 (1.0-2.7) 0.4 (1.0-2.7) Immunoglobulin G 2277 mg/dL (586-1602) White Blood Count 12.0 K/UL (4.8-10.8) 10.1 K/UL (4.8-10.8) Red Blood Count 2.99 M/UL (4.20-5.40) 2.65 M/UL (4.20-5.40) Hemoglobin 8.9 G/DL (12.0-16.0) 8.0 G/DL (12.0-16.0) Hematocrit 26.8 % (37.0-47.0) 23.4 % (37.0-47.0) Mean Corpuscular Volume 90 FL (80-99) 89 FL (80-99) Mean Corpuscular Hemoglobin 29.8 PG (27.0-31.0) 30.1 PG (27.0-31.0) Mean Corpuscular Hemoglobin Concent 33.2 G/DL (32.0-36.0) 34.0 G/DL (32.0-36.0) Red Cell Distribution Width 14.8 % (11.6-14.8) 15.1 % (11.6-14.8) Platelet Count 273 K/UL (150-450) 223 K/UL (150-450) Mean Platelet Volume 4.9 FL (6.5-10.1) 5.2 FL (6.5-10.1) Neutrophils (%) (Auto) 67.4 % (45.0-75.0) 63.2 % (45.0-75.0) Lymphocytes (%) (Auto) 26.7 % (20.0-45.0) 30.3 % (20.0-45.0) Monocytes (%) (Auto) 3.7 % (1.0-10.0) 3.1 % (1.0-10.0) Eosinophils (%) (Auto) 1.6 % (0.0-3.0) 2.8 % (0.0-3.0) Basophils (%) (Auto) 0.6 % (0.0-2.0) 0.7 % (0.0-2.0) Phosphorus Level 5.1 MG/DL (2.5-4.9) Magnesium Level 2.8 MG/DL (1.8-2.4) Direct Bilirubin 0.2 MG/DL (0.0-0.3) Gamma Glutamyl Transpeptidase 138 U/L (5-85) C-Reactive Protein, Quantitative 13.6 mg/dL (0.00-0.90) Height (Feet): 5 Height (Inches): 4.00 Weight (Pounds): 112 Objective Physical Exam vitals: reviewed gen: nad pulm: on trach+ / vent, decreased breath sounds left, chest tube+ cv: rrr, no gmr abd: sfot, nt, nd ++ gt ext: no cce Gio Rob MD Oct 03, 2019 14:07
[2019-10-03 16:00] VITALS: BP 179/90
[2019-10-03 20:00] VITALS: BP 168/88
[2019-10-03] MEDS: Dyna-Hex 2% Top Sol 2oz TOPIC SCH (21:14)
[2019-10-04] VITALS: BP 171/78
--- NOTE | 2019-10-04 00:15 | Progress Note ---
DATE: 10/03/2019 CARDIOLOGY PROGRESS NOTE SUBJECTIVE: No new advance, remains on ventilator support. Tolerating feedings. On hemodialysis with ultrafiltration 3 times a week. Monitored rhythm, sinus with rare atrial ectopics. PHYSICAL EXAMINATION: VITAL SIGNS: Blood pressure 154/74, pulse is 68, respirations 18, afebrile. No ascites. ABDOMEN: Soft. EXTREMITIES: No edema. LUNGS: With few rhonchi. Thin trach secretions. CARDIAC: Regular rhythm and rate. Normal S1, S2. LABORATORY AND DIAGNOSTIC DATA: White count 10, hemoglobin 8. Potassium 3.8, BUN 167, creatinine 4. Liver function studies with slight decrease today. IMPRESSION: 1. Transaminitis. 2. Acute on chronic diastolic congestive heart failure. 3. End-stage renal disease. 4. Respiratory failure status post trach. 5. Status post pneumothorax and chest tube drainage. PLAN: 1. Continue to trend liver function studies and steroid trial for possible autoimmune hepatitis. 2. Nutrition by feeding tube. 3. Ventilator support. 4. Hemodialysis with ultrafiltration for volume management. 5. No additional cardiovascular medications presently indicated. 6. Blood pressure control is adequate. Abel Stubbs M.D. DR: ADAM JOB#: [id number] CC:
[2019-10-04] MEDS: Albuterol/Ipratropium 3ml neb HHN SCH ×6 (02:46→23:00)
[2019-10-04 04:00] VITALS: BP 160/72
[2019-10-04 05:32] LABS: HEMATOCRIT 19.6 % (37.0-47.0); MEAN CORPUSCULAR VOLUME 87 FL (80-99); PLATELET COUNT 161 K/UL (150-450); RED BLOOD COUNT 2.24 M/UL (4.20-5.40); RED CELL DISTRIBUTION WIDTH 14.3 % (11.6-14.8); WHITE BLOOD COUNT 7.8 K/UL (4.8-10.8)
[2019-10-04 05:51] LABS: HEMOGLOBIN 6.7 G/DL (12.0-16.0)
[2019-10-04] MEDS: Renvela 800mg Pkt NG SCH ×3 (05:56→22:26)
[2019-10-04] MEDS: Levothyroxine 125mcg tab ORAL SCH (05:56)
[2019-10-04 05:59] LABS: ALANINE AMINOTRANSFERASE 212 U/L (12-78); ALBUMIN 1.8 G/DL (3.4-5.0); ALBUMIN/GLOBULIN RATIO 0.4 (1.0-2.7); ALKALINE PHOSPHATASE 362 U/L (46-116); ANION GAP 13 mmol/L (5-15); ASPARTATE AMINO TRANSFERASE 234 U/L (15-37); BILIRUBIN,TOTAL 0.4 MG/DL (0.2-1.0); BLOOD UREA NITROGEN 154 mg/dL (7-18); CALCIUM 8.5 MG/DL (8.5-10.1); CARBON DIOXIDE 24 MMOL/L (21-32); CHLORIDE 101 MMOL/L (98-107); CREATININE 3.6 MG/DL (0.55-1.30); POTASSIUM 3.6 MMOL/L (3.5-5.1); SODIUM 138 MMOL/L (136-145)
--- NOTE | 2019-10-04 06:09 | Hematology/Onc Progress Note ---
Assessment/Plan Assessment/Plan # Thrombocytopenia ow THROMBOCYTOSIS - potential causes multifactorial, evaluate liver and viral etiologies to begin, in this case due to sepsis with septic shock also with cirrhosis and liver disease --> Hep panel and HIV ordered --> neg --> US abd to evaluate for cirrhosis and hsm ordered --> reviewed --> Peripheral smear ordered to evaluate for blasts /schistocytes --> none noted --> abx and other meds have been reviewed --> ok for ppx if plt >50k w/ either heparin or lovenox --> Transfuse if Plt < 20k and fever, or if Plt < 10k without fever --> okay for permacath change once plt better--> for 08/14 --> plt trend: 43-->83-->237k-->292-->341-->315-->388 -->444-->530-->252k-->344- >529->525k-->273 # Anemia of chronic disease due to underlying chronic medical issues, multifactorial v Gi bleed --> Anemia workup has been ordered, rule out gi bleed --> No evidence of hemolysis is noted, peripheral smear has been reviewed. --> Hgb goal >7. Transfuse prn. --> Epogen has been started --> HOLD OFF IRON ferritin is >1000 --> Medications have been reviewed --> low threshold for gi evaluation in case has occult + --> hgb 9-->6.7-->9.2 -->10.5-->10.6 -->10.7-->10-->10.5-->9.8-->10.4-->9.5--> 3.6-->9.6-->9.7-->10-->10.3-->11->9.9->8.3->8.7-->8.1-->8.9 --> blood tx: 08/11, 08/31, 10/03 --> CT Chest r/o hemothorax --> does show confirmation of a large left hemothorax. Complete atelectasis of the left lower lobe and partial left upper lobe atelectasis demonstrated. Mild rightward shift of the heart and mediastinum. --> stool ob negative # Sepsis with shock. --> abx as per id, recs noted--> off abx --> pressors as needed # Healthcare-associated pneumonia. --> recs reviewed --> abx: jung/micafungin-->jung-->off --> 08/24 chest: moderate left pleural effusion # Severe protein-calorie malnutrition. --> nutritional support # End-stage renal disease --> had as renal hd --> with permacath # History of hypertension. --> per cards, now with Bradycardia. # Resp failure s/p vent/trach # HypoThyroid # Ngt feedings # Dvt ppx scd's The timing of this note does not necessarily reflect the time of the patient was seen. Greatly appreciate consultation. Subjective Constitutional: Denies: no symptoms, chills, fever, malaise, weakness, other HEENT: Denies: no symptoms, eye pain, blurred vision, tearing, double vision, ear pain, ear discharge, nose pain, nose congestion, throat pain, throat swelling, mouth pain, mouth swelling, other Cardiovascular: Denies: no symptoms, chest pain, edema, irregular heart rate, lightheadedness, palpitations, syncope, other Respiratory: Denies: no symptoms, cough, shortness of breath, SOB with excertion, SOB at rest, sputum, wheezing, other Gastrointestinal/Abdominal: Denies: no symptoms, abdomen distended, abdominal pain, black stools, tarry stools, blood in stool, constipated, diarrhea, difficulty swallowing, nausea, poor appetite, poor fluid intake, rectal bleeding , vomiting, other Neurologic/Psychiatric: Denies: no symptoms, anxiety, depressed, emotional problems, headache, numbness, paresthesia, pre-existing deficit, seizure, tingling, tremors, weakness, other Endocrine: Denies: no symptoms, excessive sweating, flushing, intolerance to cold, intolerance to heat, increased hunger, increased thirst, increased urine, unexplained weight gain, unexplained weight loss, other Hematologic/Lymphatic: Denies: no symptoms, anemia, easy bleeding, easy bruising, adenopathy, other Allergies: Coded Allergies: VANCOMYCIN (Unverified Allergy, Unknown, 08/02/19) Subjective 08/11: no bleeding or chills, labs reviewed, no major bleeding, plt less than 50k 08/12: icu, s/p blood, hgb improved to 9.2, 08/14: icu, pending consent for thora and permacath, labs reviewed 08/15: new permacath placed, no bleeding, for hd, plt much improved, started lovenox sq 08/16: ett to be adjusted, bp on high end, micafungin started, possible bronch 08/17: weaning as per pulm, no events otherwise, labs noted 08/18: no events no bleeding, remains confused on vent, for hd 08/20: icu, failed to wean, labs reviewed, jung 08/21: resting in bed, no overnight events, labs reviewed 08/22: awake, confused, restraints, no overnight events 08/23: no events, no bleeding, on ppi bid 08/24: icu, failed to wean, labs reviewed 08/25: no overnight events, us chest, restraints, afebrile 08/26 difficult in weaning, nad, seen by surg, pulm labs noted 08/27 awake on restraints, thoracentesis for am, labs reviewed 08/29 no bleeding, no night sweats, no major changes, on ppi bid 08/30 no major events, remains on vent, no bleeding, dw pcp 08/31 hgb dropped to 3.6, has been transfused with prbc, in icu, dw Rn, ct chest pend 09/01 no major events, no bleeding, labs noted, hgb remains low, hgb 9.6 09/03 lethargic, left chest tube dry/intact, off abx, vent 09/04 remains on a vent, synthroid, labs reviewed 09/05 awake and alert, no acute events, hgb 9.8, no new orders 09/06 no bleeding or chills, labs noted, no major events overnight, david rn 09/07 no events, no night sweats, no bleeding, no fc, remains agitated in the am 09/08 remains in the icu, trach was done, on vent, abx off, on epo 09/10 transferred to sdu, restraints, vent, labs reviewed 09/11 tube feeds have been ongoing, no f/c, labs reviewed 09/12 no events, no bleeding, no night sweats, hgb 10 09/13 tsh is improved, remains confused, hgb is 11, no bleeding 09/14 no events, no bleeding, labs noted, vitals stable 09/15 confused, no acute events, restraints, dc planning 09/17 no new changes, no recent labs, placement pending 09/18 no events, no bleeding, no night sweats, fevers 09/19 nonverbal, vent, elevated bp, off abx 09/20 labs reviewed, dw rn, no bleeding, meds reviewed 09/21 is a+o x 1, nonverbal, no bleeding, labs reviewed, no night sweats 09/22 no major events, no bleeding, no night sweats, no f/c, labs noted hgb 10.5 09/25 no events, no bleeding, labs noted, cbc reviewed 09/26 no events, with gtube feeds ongoing and with event, labs noted 09/27 labs have been reviewed, no night sweats, no fc 09/28 labs reviewed, no night sweats, hgb lower, but holding off on transfusion 09/29 alert, stool ob negative, h/h stable, dc planning 10/01 sdu, tsh improved, labs reviewed, elevated bp 10/02 no major events, no bleeding, labs reviewed, hgb 8, nv 10/03 no changes, labs reviewed, cbc noted, no bleeding, hgb 6.7, to get 1 unit prbc Objective Objective Current Medications Medications (Trade) Dose Ordered Sig/Javier Route PRN Reason Start Time Stop Time Status Last Admin Dose Admin Acetylcysteine (Mucomyst) 100 mg Q4HRT [facility] 08/31/19 19:00 11/29/19 18:59 10/04/19 02:45 Albuterol/ Ipratropium (Albuterol/ Ipratropium) 3 ml Q4HRT [facility] 09/22/19 15:00 12/09/19 14:59 10/04/19 02:46 Amlodipine Besylate (Norvasc) 5 mg BID ORAL 09/25/19 09:00 10/25/19 08:59 10/02/19 17:42 Chlorhexidine Gluconate (Nae-Hex 2%) 1 applic DAILY@1999 TOPIC 09/17/19 20:00 12/16/19 19:59 10/03/19 21:14 Clonidine HCl (Catapres Tab) 0.1 mg Q4H PRN ORAL For High Blood Pressure 09/22/19 21:00 12/21/19 20:59 10/04/19 00:38 Dextrose (Dextrose 50%) 25 ml Q30M PRN IV Hypoglycemia 09/02/19 06:15 12/01/19 06:14 09/04/19 12:11 Dextrose (Dextrose 50%) 50 ml Q30M PRN IV Hypoglycemia 09/02/19 06:15 12/01/19 06:14 Lansoprazole (Prevacid) 30 mg DAILY GT 09/27/19 09:00 10/27/19 08:59 10/03/19 09:03 Levothyroxine Sodium (Synthroid) 125 mcg DAILY@0630 ORAL 09/22/19 06:30 10/22/19 06:29 10/04/19 05:56 Losartan Potassium (Cozaar) 50 mg DAILY GT 10/03/19 09:00 11/02/19 08:59 Metoprolol Tartrate (Lopressor) 25 mg Q12HR ORAL 10/01/19 09:00 12/30/19 08:59 10/02/19 23:28 Prednisone (predniSONE) 30 mg DAILY ORAL 10/03/19 09:00 11/02/19 08:59 10/03/19 09:03 Psyllium Hydrophilic Mucilloid (Metamucil) 1 pkt DAILY ORAL 09/22/19 15:00 10/22/19 14:59 10/03/19 09:02 Sevelamer Carbonate (Renvela) 800 mg Q8HR NG 09/25/19 14:00 12/24/19 13:59 10/04/19 05:56 Last 24 Hour Vital Signs Date Time Temp Pulse Resp B/P (MAP) Pulse Ox O2 Delivery O2 Flow Rate FiO2 10/04/19 05:00 62 18 21 10/04/19 04:00 97.0 70 24 160/72 (101) 100 10/04/19 04:00 Mechanical Ventilator 10/04/19 04:00 21 10/04/19 03:36 60 10/04/19 02:46 61 18 100 Mechanical Ventilator 21 67 18 21 10/04/19 00:38 171/78 10/04/19 00:00 Mechanical Ventilator 10/04/19 00:00 97.0 64 18 171/78 (109) 100 10/04/19 00:00 21 10/03/19 23:30 67 10/03/19 22:32 61 18 100 Mechanical Ventilator 21 65 18 21 10/03/19 21:00 61 80/30 10/03/19 20:00 96.7 61 18 168/88 (114) 100 10/03/19 20:00 Mechanical Ventilator 10/03/19 20:00 21 10/03/19 19:29 67 18 100 Mechanical Ventilator 21 68 18 21 10/03/19 19:07 80 10/03/19 16:00 96.1 69 19 179/90 (119) 100 10/03/19 15:56 21 10/03/19 15:55 Mechanical Ventilator 10/03/19 15:35 67 10/03/19 15:20 71 19 100 Mechanical Ventilator 21 65 20 21 10/03/19 11:58 21 10/03/19 11:57 96.4 65 18 172/80 (110) 96 10/03/19 11:52 Mechanical Ventilator 10/03/19 11:50 66 10/03/19 11:21 77 21 100 Mechanical Ventilator 21 55 19 21 10/03/19 08:02 56 20 100 Mechanical Ventilator 21 55 18 21 10/03/19 08:00 Mechanical Ventilator 10/03/19 08:00 96.8 68 18 154/74 (100) 99 10/03/19 08:00 21 10/03/19 07:53 68 10/03/19 04:00 21 10/03/19 04:00 69 10/03/19 04:00 97.7 69 18 141/69 (93) 100 10/03/19 04:00 Mechanical Ventilator 10/03/19 03:05 71 19 100 Mechanical Ventilator 21 10/03/19 02:50 67 18 Mechanical Ventilator 21 21 10/03/19 00:00 98.1 66 18 139/76 (97) 100 10/03/19 00:00 21 10/03/19 00:00 Mechanical Ventilator 10/03/19 00:00 66 10/02/19 23:55 67 20 99 Mechanical Ventilator 21 10/02/19 23:40 69 19 Mechanical Ventilator 21 21 10/02/19 23:28 71 143/78 10/02/19 20:00 97.0 71 19 143/78 (99) 100 10/02/19 19:56 Mechanical Ventilator 10/02/19 19:38 66 18 100 Mechanical Ventilator 21 10/02/19 19:23 65 18 Mechanical Ventilator 21 21 10/02/19 17:42 66 169/94 10/02/19 17:07 66 18 21 10/02/19 16:00 21 10/02/19 16:00 64 10/02/19 16:00 98.4 62 18 169/94 (119) 100 10/02/19 16:00 Mechanical Ventilator 10/02/19 13:00 57 19 21 10/02/19 12:00 97.8 60 18 133/49 (77) 100 10/02/19 12:00 Mechanical Ventilator 10/02/19 12:00 57 10/02/19 12:00 30 10/02/19 11:04 58 20 100 Mechanical Ventilator 30 61 19 30 10/02/19 08:52 67 166/77 10/02/19 08:51 67 166/77 10/02/19 08:30 67 19 30 10/02/19 08:00 Mechanical Ventilator 10/02/19 08:00 98.0 65 18 166/77 (106) 100 10/02/19 08:00 30 10/02/19 08:00 68 10/02/19 07:15 63 18 100 Mechanical Ventilator 30 64 18 30 Intake and Output 10/03/19 10/04/19 18:59 06:59 Intake Total 380 ml 500 ml Output Total 550 ml Balance -170 ml 500 ml Intake Free Water 100 ml 150 ml Tube Feeding 280 ml 350 ml Output Urine Total 550 ml # Bowel Movements 1 1 Labs Test 10/02/19 06:10 10/03/19 03:20 10/04/19 03:20 White Blood Count 12.0 K/UL (4.8-10.8) 10.1 K/UL (4.8-10.8) 7.8 K/UL (4.8-10.8) Red Blood Count 2.99 M/UL (4.20-5.40) 2.65 M/UL (4.20-5.40) 2.24 M/UL (4.20-5.40) Hemoglobin 8.9 G/DL (12.0-16.0) 8.0 G/DL (12.0-16.0) 6.7 G/DL (12.0-16.0) Hematocrit 26.8 % (37.0-47.0) 23.4 % (37.0-47.0) 19.6 % (37.0-47.0) Mean Corpuscular Volume 90 FL (80-99) 89 FL (80-99) 87 FL (80-99) Mean Corpuscular Hemoglobin 29.8 PG (27.0-31.0) 30.1 PG (27.0-31.0) 30.1 PG (27.0-31.0) Mean Corpuscular Hemoglobin Concent 33.2 G/DL (32.0-36.0) 34.0 G/DL (32.0-36.0) 34.4 G/DL (32.0-36.0) Red Cell Distribution Width 14.8 % (11.6-14.8) 15.1 % (11.6-14.8) 14.3 % (11.6-14.8) Platelet Count 273 K/UL (150-450) 223 K/UL (150-450) 161 K/UL (150-450) Mean Platelet Volume 4.9 FL (6.5-10.1) 5.2 FL (6.5-10.1) 5.3 FL (6.5-10.1) Neutrophils (%) (Auto) 67.4 % (45.0-75.0) 63.2 % (45.0-75.0) % (45.0-75.0) Lymphocytes (%) (Auto) 26.7 % (20.0-45.0) 30.3 % (20.0-45.0) % (20.0-45.0) Monocytes (%) (Auto) 3.7 % (1.0-10.0) 3.1 % (1.0-10.0) % (1.0-10.0) Eosinophils (%) (Auto) 1.6 % (0.0-3.0) 2.8 % (0.0-3.0) % (0.0-3.0) Basophils (%) (Auto) 0.6 % (0.0-2.0) 0.7 % (0.0-2.0) % (0.0-2.0) Sodium Level 139 MMOL/L (136-145) 139 MMOL/L (136-145) 138 MMOL/L (136-145) Potassium Level 3.7 MMOL/L (3.5-5.1) 3.8 MMOL/L (3.5-5.1) 3.6 MMOL/L (3.5-5.1) Chloride Level 100 MMOL/L (98-107) 102 MMOL/L (98-107) 101 MMOL/L (98-107) Carbon Dioxide Level 24 MMOL/L (21-32) 21 MMOL/L (21-32) 24 MMOL/L (21-32) Anion Gap 15 mmol/L (5-15) 16 mmol/L (5-15) 13 mmol/L (5-15) Blood Urea Nitrogen 156 mg/dL (7-18) 167 mg/dL (7-18) 154 mg/dL (7-18) Creatinine 3.9 MG/DL (0.55-1.30) 4.0 MG/DL (0.55-1.30) 3.6 MG/DL (0.55-1.30) Estimat Glomerular Filtration Rate 11.1 mL/min (>60) 10.8 mL/min (>60) 12.2 mL/min (>60) Glucose Level 181 MG/DL (74-106) 165 MG/DL (74-106) 186 MG/DL (74-106) Calcium Level 8.6 MG/DL (8.5-10.1) 8.2 MG/DL (8.5-10.1) 8.5 MG/DL (8.5-10.1) Phosphorus Level 5.1 MG/DL (2.5-4.9) Magnesium Level 2.8 MG/DL (1.8-2.4) Total Bilirubin 0.5 MG/DL (0.2-1.0) 0.4 MG/DL (0.2-1.0) 0.4 MG/DL (0.2-1.0) Direct Bilirubin 0.2 MG/DL (0.0-0.3) Gamma Glutamyl Transpeptidase 138 U/L (5-85) Aspartate Amino Transf (AST/SGOT) 313 U/L (15-37) 283 U/L (15-37) 234 U/L (15-37) Alanine Aminotransferase (ALT/SGPT) 415 U/L (12-78) 287 U/L (12-78) 212 U/L (12-78) Alkaline Phosphatase 497 U/L (46-116) 430 U/L (46-116) 362 U/L (46-116) C-Reactive Protein, Quantitative 13.6 mg/dL (0.00-0.90) Total Protein 7.5 G/DL (6.4-8.2) 6.8 G/DL (6.4-8.2) 6.1 G/DL (6.4-8.2) Albumin 2.5 G/DL (3.4-5.0) 2.1 G/DL (3.4-5.0) 1.8 G/DL (3.4-5.0) Globulin 5.4 g/dL 4.7 g/dL 4.3 g/dL Albumin/Globulin Ratio 0.4 (1.0-2.7) 0.4 (1.0-2.7) 0.4 (1.0-2.7) Height (Feet): 5 Height (Inches): 4.00 Weight (Pounds): 112 Objective Physical Exam vitals: reviewed gen: nad pulm: on trach+ / vent, decreased breath sounds left, chest tube+ cv: rrr, no gmr abd: sfot, nt, nd ++ gt ext: no cce Gio Rob MD Oct 04, 2019 06:09
[2019-10-04 06:13] LABS: GAMMA GLUTAMYL TRANSPEPTIDASE 85 U/L (5-85)
[2019-10-04 08:00] VITALS: BP 172/79
[2019-10-04] MEDS: Metamucil Pkt ORAL SCH (08:36)
[2019-10-04] MEDS: Losartan 50mg tab GT SCH (08:36)
[2019-10-04 08:45] LABS: BASOPHILS % (AUTO) 0.3 % (0.0-2.0); EOSINOPHILS % (AUTO) 0.6 % (0.0-3.0); HEMATOCRIT 25.1 % (37.0-47.0); HEMOGLOBIN 8.7 G/DL (12.0-16.0); LYMPHOCYTES % (AUTO) 23.4 % (20.0-45.0); MEAN CORPUSCULAR VOLUME 88 FL (80-99); MONOCYTES % (AUTO) 2.3 % (1.0-10.0); NEUTROPHILS % (AUTO) 73.4 % (45.0-75.0); PLATELET COUNT 208 K/UL (150-450); RED BLOOD COUNT 2.84 M/UL (4.20-5.40); RED CELL DISTRIBUTION WIDTH 15.1 % (11.6-14.8); WHITE BLOOD COUNT 13.1 K/UL (4.8-10.8)
--- NOTE | 2019-10-04 09:38 | General Progress Note ---
Assessment/Plan Status: stable, not improved, unchanged, deteriorating Assessment/Plan: Assessment - Severe ulcerative esophagitis - mild elevation in LFT, Hepatitis B/C negative --> now sudden rise - ? related to new 1.9 cm mass near GB - ? autoimmune / high ESR - abnormal liver on CT - ? chronic disease / fibrosis - Resp failure - trach - s/p recent Chest tube and removal - Renal failure - aspiration risk --> s/p PEG - anemia - bradycardia - Poor prognosis Recommendations - CT reviewed -? shock liver. Repeat in am>>> improving - check autoimmune markers - pending>>> neg JOLIE - check AFP - GT care - water flushes - elevate HOB - monitor H&H - ppi -check stool ob>>>positive>>> ordered one more>>>seconf one neg patient poor candidate for GI procedures - vent -patient not a candidate for liver biopsy -given elevated SM Ab and igg, neg hepatitis panel >>>started prednisone 30 mg Day #3 -will consider adding imuran if good response to prednisone -fu LFTS>>>improving Subjective ROS Limited/Unobtainable: No Allergies: Coded Allergies: VANCOMYCIN (Unverified Allergy, Unknown, 08/02/19) Subjective s/p blood transfusion Objective Last 24 Hour Vital Signs Date Time Temp Pulse Resp B/P (MAP) Pulse Ox O2 Delivery O2 Flow Rate FiO2 10/04/19 08:37 71 172/79 10/04/19 08:36 172/79 10/04/19 08:36 71 172/79 10/04/19 08:00 21 10/04/19 08:00 96.6 74 18 172/79 (110) 99 10/04/19 08:00 Mechanical Ventilator 10/04/19 07:45 63 18 Mechanical Ventilator 21 21 10/04/19 05:00 62 18 21 10/04/19 04:00 97.0 70 24 160/72 (101) 100 10/04/19 04:00 Mechanical Ventilator 10/04/19 04:00 21 10/04/19 03:36 60 10/04/19 02:46 61 18 100 Mechanical Ventilator 21 67 18 21 10/04/19 00:38 171/78 10/04/19 00:00 Mechanical Ventilator 10/04/19 00:00 97.0 64 18 171/78 (109) 100 10/04/19 00:00 21 10/03/19 23:30 67 10/03/19 22:32 61 18 100 Mechanical Ventilator 21 65 18 21 10/03/19 21:00 61 80/30 10/03/19 20:00 96.7 61 18 168/88 (114) 100 10/03/19 20:00 Mechanical Ventilator 10/03/19 20:00 21 10/03/19 19:29 67 18 100 Mechanical Ventilator 21 68 18 21 10/03/19 19:07 80 10/03/19 16:00 96.1 69 19 179/90 (119) 100 10/03/19 15:56 21 10/03/19 15:55 Mechanical Ventilator 10/03/19 15:35 67 10/03/19 15:20 71 19 100 Mechanical Ventilator 21 65 20 21 10/03/19 11:58 21 10/03/19 11:57 96.4 65 18 172/80 (110) 96 10/03/19 11:52 Mechanical Ventilator 10/03/19 11:50 66 10/03/19 11:21 77 21 100 Mechanical Ventilator 21 55 19 21 Intake and Output 10/03/19 10/04/19 19:00 07:00 Intake Total 380 ml 500 ml Output Total 550 ml 200 ml Balance -170 ml 300 ml Intake Free Water 100 ml 150 ml Tube Feeding 280 ml 350 ml Output Urine Total 550 ml 200 ml # Bowel Movements 1 2 Laboratory Tests 10/04/19 03:20: White Blood Count 7.8, Red Blood Count 2.24L, Hemoglobin 6.7*L, Hematocrit 19.6L , Mean Corpuscular Volume 87, Mean Corpuscular Hemoglobin 30.1, Mean Corpuscular Hemoglobin Concent 34.4, Red Cell Distribution Width 14.3, Platelet Count 161, Mean Platelet Volume 5.3L, Neutrophils (%) (Auto) , Lymphocytes (%) ( Auto) , Monocytes (%) (Auto) , Eosinophils (%) (Auto) , Basophils (%) (Auto) , Differential Total Cells Counted 100, Neutrophils % (Manual) 66, Lymphocytes % ( Manual) 30, Monocytes % (Manual) 2, Eosinophils % (Manual) 2, Basophils % ( Manual) 0, Band Neutrophils 0, Platelet Estimate Adequate, Platelet Morphology Normal, Hypochromasia 1+, Anisocytosis 1+, Sodium Level 138, Potassium Level 3.6 , Chloride Level 101, Carbon Dioxide Level 24, Anion Gap 13, Blood Urea Nitrogen 154H, Creatinine 3.6H, Estimat Glomerular Filtration Rate 12.2, Glucose Level 186H, Calcium Level 8.5, Phosphorus Level 4.0, Magnesium Level 2.5H, Total Bilirubin 0.4, Gamma Glutamyl Transpeptidase 85, Aspartate Amino Transf (AST/SGOT) 234H, Alanine Aminotransferase (ALT/SGPT) 212H, Alkaline Phosphatase 362H, C-Reactive Protein, Quantitative 8.2H, Pro-B-Type Natriuretic Peptide > [id number], Total Protein 6.1L, Albumin 1.8L, Globulin 4.3, Albumin/ Globulin Ratio 0.4L 10/04/19 08:20: White Blood Count 13.1#H, Red Blood Count 2.84L, Hemoglobin 8.7L, Hematocrit 25.1L, Mean Corpuscular Volume 88, Mean Corpuscular Hemoglobin 30.5, Mean Corpuscular Hemoglobin Concent 34.6, Red Cell Distribution Width 15.1H, Platelet Count 208, Mean Platelet Volume 5.1L, Neutrophils (%) (Auto) 73.4, Lymphocytes (%) (Auto) 23.4, Monocytes (%) (Auto) 2.3, Eosinophils (%) (Auto) 0.6, Basophils (%) (Auto) 0.3 Height (Feet): 5 Height (Inches): 4.00 Weight (Pounds): 112 General Appearance: no apparent distress EENT: normal ENT inspection Neck: supple Cardiovascular: normal rate Respiratory/Chest: decreased breath sounds Abdomen: normal bowel sounds, non tender, soft Extremities: non-tender Kenny Rudolph MD Oct 04, 2019 09:38
--- NOTE | 2019-10-04 11:08 | General Progress Note ---
Assessment/Plan Problem List: (1) Failure to thrive (0-17) ICD Codes: R62.51 - Failure to thrive (0-17) SNOMED: 167947109 (2) Hypertensive kidney disease ICD Codes: I12.9 - Hypertensive chronic kidney disease with stage 1 through stage 4 chronic kidney disease, or unspecified chronic kidney disease SNOMED: 13532535 (3) Pneumonia ICD Codes: J18.9 - Pneumonia, unspecified organism SNOMED: 209181109 Qualifiers: Qualified Codes: J18.9 - Pneumonia, unspecified organism (4) ESRD (end stage renal disease) ICD Codes: N18.6 - End stage renal disease SNOMED: 80546606 (5) Septic arthritis ICD Codes: M00.9 - Pyogenic arthritis, unspecified SNOMED: 563901468 (6) Thrombocytopenia ICD Codes: D69.6 - Thrombocytopenia, unspecified SNOMED: 436582273 (7) Hypotension ICD Codes: I95.9 - Hypotension, unspecified SNOMED: 49254501 Qualifiers: Qualified Codes: I95.3 - Hypotension of hemodialysis (8) Malnutrition ICD Codes: E46 - Unspecified protein-calorie malnutrition SNOMED: 06638798 Status: stable, not improved, unchanged, deteriorating Assessment/Plan: Continue vent support. Wean as able. Will discuss with pulmonary if patient could be weaned to trach collar.Suctioning and pulmonary toilet. Continue G-tube feedings. Monitor residuals Continue current blood pressure regimen with close monitoring of blood pressure. Hemodialysis with ultrafiltration per nephrology. Turn every 2 hours and good skin care. monitor labs/lfts steroids per GI monitor h/h Discharge planning in progress Subjective ROS Limited/Unobtainable: Yes Constitutional: Reports: malaise, weakness HEENT: Reports: no symptoms Cardiovascular: Reports: no symptoms Respiratory: Reports: shortness of breath, sputum Gastrointestinal/Abdominal: Reports: difficulty swallowing Genitourinary: Reports: no symptoms Neurologic/Psychiatric: Reports: anxiety, pre-existing deficit Endocrine: Reports: no symptoms Hematologic/Lymphatic: Reports: anemia Allergies: Coded Allergies: VANCOMYCIN (Unverified Allergy, Unknown, 08/02/19) All Systems: reviewed and negative except above Subjective There were no overnight events. Patient remains stable on the ventilator. She occasionally opens her eyes. Tolerating feedings. LFTS less. h/h up this am. no signs of bleeding. Objective Last 24 Hour Vital Signs Date Time Temp Pulse Resp B/P (MAP) Pulse Ox O2 Delivery O2 Flow Rate FiO2 10/04/19 10:49 72 18 Mechanical Ventilator 21 21 10/04/19 08:37 71 172/79 10/04/19 08:36 172/79 10/04/19 08:36 71 172/79 10/04/19 08:00 21 10/04/19 08:00 96.6 74 18 172/79 (110) 99 10/04/19 08:00 Mechanical Ventilator 10/04/19 07:52 67 10/04/19 07:45 63 18 Mechanical Ventilator 21 21 10/04/19 05:00 62 18 21 10/04/19 04:00 97.0 70 24 160/72 (101) 100 10/04/19 04:00 Mechanical Ventilator 10/04/19 04:00 21 10/04/19 03:36 60 10/04/19 02:46 61 18 100 Mechanical Ventilator 21 67 18 21 10/04/19 00:38 171/78 10/04/19 00:00 Mechanical Ventilator 10/04/19 00:00 97.0 64 18 171/78 (109) 100 10/04/19 00:00 21 10/03/19 23:30 67 10/03/19 22:32 61 18 100 Mechanical Ventilator 21 65 18 21 10/03/19 21:00 61 80/30 10/03/19 20:00 96.7 61 18 168/88 (114) 100 10/03/19 20:00 Mechanical Ventilator 10/03/19 20:00 21 10/03/19 19:29 67 18 100 Mechanical Ventilator 21 68 18 21 10/03/19 19:07 80 10/03/19 16:00 96.1 69 19 179/90 (119) 100 10/03/19 15:56 21 10/03/19 15:55 Mechanical Ventilator 10/03/19 15:35 67 10/03/19 15:20 71 19 100 Mechanical Ventilator 21 65 20 21 10/03/19 11:58 21 10/03/19 11:57 96.4 65 18 172/80 (110) 96 10/03/19 11:52 Mechanical Ventilator 10/03/19 11:50 66 10/03/19 11:21 77 21 100 Mechanical Ventilator 21 55 19 21 Intake and Output 10/03/19 10/04/19 19:00 07:00 Intake Total 380 ml 500 ml Output Total 550 ml 200 ml Balance -170 ml 300 ml Intake Free Water 100 ml 150 ml Tube Feeding 280 ml 350 ml Output Urine Total 550 ml 200 ml # Bowel Movements 1 2 Laboratory Tests 10/04/19 03:20: White Blood Count 7.8, Red Blood Count 2.24L, Hemoglobin 6.7*L, Hematocrit 19.6L , Mean Corpuscular Volume 87, Mean Corpuscular Hemoglobin 30.1, Mean Corpuscular Hemoglobin Concent 34.4, Red Cell Distribution Width 14.3, Platelet Count 161, Mean Platelet Volume 5.3L, Neutrophils (%) (Auto) , Lymphocytes (%) ( Auto) , Monocytes (%) (Auto) , Eosinophils (%) (Auto) , Basophils (%) (Auto) , Differential Total Cells Counted 100, Neutrophils % (Manual) 66, Lymphocytes % ( Manual) 30, Monocytes % (Manual) 2, Eosinophils % (Manual) 2, Basophils % ( Manual) 0, Band Neutrophils 0, Platelet Estimate Adequate, Platelet Morphology Normal, Hypochromasia 1+, Anisocytosis 1+, Sodium Level 138, Potassium Level 3.6 , Chloride Level 101, Carbon Dioxide Level 24, Anion Gap 13, Blood Urea Nitrogen 154H, Creatinine 3.6H, Estimat Glomerular Filtration Rate 12.2, Glucose Level 186H, Calcium Level 8.5, Phosphorus Level 4.0, Magnesium Level 2.5H, Total Bilirubin 0.4, Gamma Glutamyl Transpeptidase 85, Aspartate Amino Transf (AST/SGOT) 234H, Alanine Aminotransferase (ALT/SGPT) 212H, Alkaline Phosphatase 362H, C-Reactive Protein, Quantitative 8.2H, Pro-B-Type Natriuretic Peptide > 57576R, Total Protein 6.1L, Albumin 1.8L, Globulin 4.3, Albumin/ Globulin Ratio 0.4L 10/04/19 08:20: White Blood Count 13.1#H, Red Blood Count 2.84L, Hemoglobin 8.7L, Hematocrit 25.1L, Mean Corpuscular Volume 88, Mean Corpuscular Hemoglobin 30.5, Mean Corpuscular Hemoglobin Concent 34.6, Red Cell Distribution Width 15.1H, Platelet Count 208, Mean Platelet Volume 5.1L, Neutrophils (%) (Auto) 73.4, Lymphocytes (%) (Auto) 23.4, Monocytes (%) (Auto) 2.3, Eosinophils (%) (Auto) 0.6, Basophils (%) (Auto) 0.3 Height (Feet): 5 Height (Inches): 4.00 Weight (Pounds): 112 Objective General Appearance: WD/WN, awake. looks around. no distress. thin and frail Neck: supple +trach Cardiovascular: normal rate Respiratory/Chest: rhonchi - bilaterally Abdomen: normal bowel sounds, non tender, soft, no organomegaly Edema: no edema noted Arm (L), no edema noted Arm (R), no edema noted Leg (L), no edema noted Leg (R), no edema noted Pedal (L), no edema noted Pedal (R), no edema noted Generalized Neurologic: disoriented, aphasia Skin: +excoriations Nate Beltran MD Oct 04, 2019 11:08
--- NOTE | 2019-10-04 11:12 | Infectious Diseases Prog Note ---
Assessment/Plan Assessment/Plan antibiotics : none A 1. jarad albicans fungemia s/p rx 2. right shoulder septic arthritis with staph aureus s/p rx 3. pleural effusion 4. thrombocytopenia resolved 7. diabetes mellitus 8. hypertension 9. respiratory failure P 1. observe off antibiotics Subjective ROS Limited/Unobtainable: Yes Allergies: Coded Allergies: VANCOMYCIN (Unverified Allergy, Unknown, 08/02/19) Objective Vital Signs Last 24 Hour Vital Signs Date Time Temp Pulse Resp B/P (MAP) Pulse Ox O2 Delivery O2 Flow Rate FiO2 10/04/19 10:49 72 18 Mechanical Ventilator 21 21 10/04/19 08:37 71 172/79 10/04/19 08:36 172/79 10/04/19 08:36 71 172/79 10/04/19 08:00 21 10/04/19 08:00 96.6 74 18 172/79 (110) 99 10/04/19 08:00 Mechanical Ventilator 10/04/19 07:52 67 10/04/19 07:45 63 18 Mechanical Ventilator 21 21 10/04/19 05:00 62 18 21 10/04/19 04:00 97.0 70 24 160/72 (101) 100 10/04/19 04:00 Mechanical Ventilator 10/04/19 04:00 21 10/04/19 03:36 60 10/04/19 02:46 61 18 100 Mechanical Ventilator 21 67 18 21 10/04/19 00:38 171/78 10/04/19 00:00 Mechanical Ventilator 10/04/19 00:00 97.0 64 18 171/78 (109) 100 10/04/19 00:00 21 10/03/19 23:30 67 10/03/19 22:32 61 18 100 Mechanical Ventilator 21 65 18 21 10/03/19 21:00 61 80/30 10/03/19 20:00 96.7 61 18 168/88 (114) 100 10/03/19 20:00 Mechanical Ventilator 10/03/19 20:00 21 10/03/19 19:29 67 18 100 Mechanical Ventilator 21 68 18 21 10/03/19 19:07 80 10/03/19 16:00 96.1 69 19 179/90 (119) 100 10/03/19 15:56 21 10/03/19 15:55 Mechanical Ventilator 4/20/20 15:35 67 10/03/19 15:20 71 19 100 Mechanical Ventilator 21 65 20 21 10/03/19 11:58 21 10/03/19 11:57 96.4 65 18 172/80 (110) 96 10/03/19 11:52 Mechanical Ventilator 10/03/19 11:50 66 10/03/19 11:21 77 21 100 Mechanical Ventilator 21 55 19 21 Height (Feet): 5 Height (Inches): 4.00 Weight (Pounds): 112 HEENT: status post trach Respiratory/Chest: lungs clear Cardiovascular: normal rate, regular rhythm, no gallop/murmur Abdomen: soft, non tender, other - GT Extremities: no edema, other - right groin catheter Laboratory Tests Test 10/04/19 03:20 10/04/19 08:20 White Blood Count 7.8 K/UL (4.8-10.8) 13.1 K/UL (4.8-10.8) #H Red Blood Count 2.24 M/UL (4.20-5.40) L 2.84 M/UL (4.20-5.40) L Hemoglobin 6.7 G/DL (12.0-16.0) *L 8.7 G/DL (12.0-16.0) L Hematocrit 19.6 % (37.0-47.0) L 25.1 % (37.0-47.0) L Mean Corpuscular Volume 87 FL (80-99) 88 FL (80-99) Mean Corpuscular Hemoglobin 30.1 PG (27.0-31.0) 30.5 PG (27.0-31.0) Mean Corpuscular Hemoglobin Concent 34.4 G/DL (32.0-36.0) 34.6 G/DL (32.0-36.0) Red Cell Distribution Width 14.3 % (11.6-14.8) 15.1 % (11.6-14.8) H Platelet Count 161 K/UL (150-450) 208 K/UL (150-450) Mean Platelet Volume 5.3 FL (6.5-10.1) L 5.1 FL (6.5-10.1) L Neutrophils (%) (Auto) % (45.0-75.0) 73.4 % (45.0-75.0) Lymphocytes (%) (Auto) % (20.0-45.0) 23.4 % (20.0-45.0) Monocytes (%) (Auto) % (1.0-10.0) 2.3 % (1.0-10.0) Eosinophils (%) (Auto) % (0.0-3.0) 0.6 % (0.0-3.0) Basophils (%) (Auto) % (0.0-2.0) 0.3 % (0.0-2.0) Differential Total Cells Counted 100 Neutrophils % (Manual) 66 % (45-75) Lymphocytes % (Manual) 30 % (20-45) Monocytes % (Manual) 2 % (1-10) Eosinophils % (Manual) 2 % (0-3) Basophils % (Manual) 0 % (0-2) Band Neutrophils 0 % (0-8) Platelet Estimate Adequate Platelet Morphology Normal Hypochromasia 1+ Anisocytosis 1+ Sodium Level 138 MMOL/L (136-145) Potassium Level 3.6 MMOL/L (3.5-5.1) Chloride Level 101 MMOL/L (98-107) Carbon Dioxide Level 24 MMOL/L (21-32) Anion Gap 13 mmol/L (5-15) Blood Urea Nitrogen 154 mg/dL (7-18) H Creatinine 3.6 MG/DL (0.55-1.30) H Estimat Glomerular Filtration Rate 12.2 mL/min (>60) Glucose Level 186 MG/DL (74-106) H Calcium Level 8.5 MG/DL (8.5-10.1) Phosphorus Level 4.0 MG/DL (2.5-4.9) Magnesium Level 2.5 MG/DL (1.8-2.4) H Total Bilirubin 0.4 MG/DL (0.2-1.0) Gamma Glutamyl Transpeptidase 85 U/L (5-85) Aspartate Amino Transf (AST/SGOT) 234 U/L (15-37) H Alanine Aminotransferase (ALT/SGPT) 212 U/L (12-78) H Alkaline Phosphatase 362 U/L (46-116) H C-Reactive Protein, Quantitative 8.2 mg/dL (0.00-0.90) H Pro-B-Type Natriuretic Peptide > 29416 pg/mL (0-125) H Total Protein 6.1 G/DL (6.4-8.2) L Albumin 1.8 G/DL (3.4-5.0) L Globulin 4.3 g/dL Albumin/Globulin Ratio 0.4 (1.0-2.7) L Current Medications Medications (Trade) Dose Ordered Sig/Javier Route PRN Reason Start Time Stop Time Status Last Admin Dose Admin Acetylcysteine (Mucomyst) 100 mg Q4HRT N 08/31/19 19:00 11/29/19 18:59 10/04/19 10:47 Albuterol/ Ipratropium (Albuterol/ Ipratropium) 3 ml Q4HRT N 09/22/19 15:00 12/09/19 14:59 10/04/19 10:47 Amlodipine Besylate (Norvasc) 5 mg BID ORAL 09/25/19 09:00 10/25/19 08:59 10/04/19 08:37 Chlorhexidine Gluconate (Nae-Hex 2%) 1 applic DAILY@2000 TOPIC 09/17/19 20:00 12/16/19 19:59 10/03/19 21:14 Clonidine HCl (Catapres Tab) 0.1 mg Q4H PRN ORAL For High Blood Pressure 09/22/19 21:00 12/21/19 20:59 10/04/19 00:38 Dextrose (Dextrose 50%) 25 ml Q30M PRN IV Hypoglycemia 09/02/19 06:15 12/01/19 06:14 09/04/19 12:11 Dextrose (Dextrose 50%) 50 ml Q30M PRN IV Hypoglycemia 09/02/19 06:15 12/01/19 06:14 Lansoprazole (Prevacid) 30 mg DAILY GT 09/27/19 09:00 10/27/19 08:59 10/04/19 08:36 Levothyroxine Sodium (Synthroid) 125 mcg DAILY@0630 ORAL 09/22/19 06:30 10/22/19 06:29 10/04/19 05:56 Losartan Potassium (Cozaar) 50 mg DAILY GT 10/03/19 09:00 11/02/19 08:59 10/04/19 08:36 Metoprolol Tartrate (Lopressor) 25 mg Q12HR ORAL 10/01/19 09:00 12/30/19 08:59 10/04/19 08:36 Prednisone (predniSONE) 30 mg DAILY ORAL 10/03/19 09:00 11/02/19 08:59 10/04/19 08:36 Psyllium Hydrophilic Mucilloid (Metamucil) 1 pkt DAILY ORAL 09/22/19 15:00 10/22/19 14:59 10/04/19 08:36 Sevelamer Carbonate (Renvela) 800 mg Q8HR NG 09/25/19 14:00 12/24/19 13:59 10/04/19 05:56 Melissa Solares MD Oct 04, 2019 11:12
[2019-10-04 12:03] VITALS: BP 155/68
--- NOTE | 2019-10-04 13:11 | Critical Care Progress Note ---
Assessment/Plan Assessment/Plan respiratory failure hypoxemia chronic renal failure toxic met encephalopathy severe protein calorie malnutrition cachexia left lung whiteout/collapse, anemia pulmonary edema + pleural effusion anasarca s/p CT placement and removal s/p trach hypernatremia PLAN trach care as is await repeat imaging for further intervention care noted and reviewed monitor for fluid retention try to tap reviewed care and continue to monitor weaning unable renal follow up and dialysis prognosis poor overall for change keep negative and monitor osmotic pressures fully dependent for now close follow up discussed elevated head and monitor ROM watch fluid status and keep negative nutrition and monitor residuals doubt any significant improvement off load as able and monitor skin exam ROM as able and monitor contractures prognosis poor for recovery will need LTAC impression, plan, and exam edited and reviewed in detail care discussed with physician general internal medicine - Subjective ROS Limited/Unobtainable: Yes Condition: critical EKG Rhythm: Sinus Rhythm Residuals: minimal Tube Feeding Tolerated: yes I&O: Intake and Output 10/03/19 10/04/19 19:00 07:00 Intake Total 380 ml 500 ml Output Total 550 ml 200 ml Balance -170 ml 300 ml Intake Free Water 100 ml 150 ml Tube Feeding 280 ml 350 ml Output Urine Total 550 ml 200 ml # Bowel Movements 1 2 Critical Care - Objective ET-Tube: 7.0 ET Position: 19 Last 24 Hour Vital Signs Date Time Temp Pulse Resp B/P (MAP) Pulse Ox O2 Delivery O2 Flow Rate FiO2 10/04/19 12:03 97.0 76 19 155/68 (97) 97 10/04/19 11:53 21 10/04/19 11:52 Mechanical Ventilator 10/04/19 11:46 73 10/04/19 10:49 72 18 Mechanical Ventilator 10/04/19 08:37 71 172/79 10/04/19 08:36 172/79 10/04/19 08:36 71 172/79 10/04/19 08:00 21 10/04/19 08:00 96.6 74 18 172/79 (110) 99 10/04/19 08:00 Mechanical Ventilator 10/04/19 07:52 67 10/04/19 07:45 63 18 Mechanical Ventilator 10/04/19 05:00 62 18 21 10/04/19 04:00 97.0 70 24 160/72 (101) 100 10/04/19 04:00 Mechanical Ventilator 10/04/19 04:00 21 10/04/19 03:36 60 10/04/19 02:46 61 18 100 Mechanical Ventilator 21 67 18 21 10/04/19 00:38 171/78 10/04/19 00:00 Mechanical Ventilator 10/04/19 00:00 97.0 64 18 171/78 (109) 100 10/04/19 00:00 21 10/03/19 23:30 67 10/03/19 22:32 61 18 100 Mechanical Ventilator 21 65 18 21 10/03/19 21:00 61 80/30 10/03/19 20:00 96.7 61 18 168/88 (114) 100 10/03/19 20:00 Mechanical Ventilator 10/03/19 20:00 21 10/03/19 19:29 67 18 100 Mechanical Ventilator 21 68 18 21 10/03/19 19:07 80 10/03/19 16:00 96.1 69 19 179/90 (119) 100 10/03/19 15:56 21 10/03/19 15:55 Mechanical Ventilator 10/03/19 15:35 67 10/03/19 15:20 71 19 100 Mechanical Ventilator 21 65 20 21 Labs: Labs Test 10/02/19 06:10 10/03/19 03:20 10/04/19 03:20 10/04/19 08:20 White Blood Count 12.0 K/UL (4.8-10.8) 10.1 K/UL (4.8-10.8) 7.8 K/UL (4.8-10.8) 13.1 K/UL (4.8-10.8) Red Blood Count 2.99 M/UL (4.20-5.40) 2.65 M/UL (4.20-5.40) 2.24 M/UL (4.20-5.40) 2.84 M/UL (4.20-5.40) Hemoglobin 8.9 G/DL (12.0-16.0) 8.0 G/DL (12.0-16.0) 6.7 G/DL (12.0-16.0) 8.7 G/DL (12.0-16.0) Hematocrit 26.8 % (37.0-47.0) 23.4 % (37.0-47.0) 19.6 % (37.0-47.0) 25.1 % (37.0-47.0) Mean Corpuscular Volume 90 FL (80-99) 89 FL (80-99) 87 FL (80-99) 88 FL (80- 99) Mean Corpuscular Hemoglobin 29.8 PG (27.0-31.0) 30.1 PG (27.0-31.0) 30.1 PG (27.0-31.0) 30.5 PG (27.0-31.0) Mean Corpuscular Hemoglobin Concent 33.2 G/DL (32.0-36.0) 34.0 G/DL (32.0-36.0) 34.4 G/DL (32.0-36.0) 34.6 G/DL (32.0-36.0) Red Cell Distribution Width 14.8 % (11.6-14.8) 15.1 % (11.6-14.8) 14.3 % (11.6-14.8) 15.1 % (11.6-14.8) Platelet Count 273 K/UL (150-450) 223 K/UL (150-450) 161 K/UL (150-450) 208 K/UL (150-450) Mean Platelet Volume 4.9 FL (6.5-10.1) 5.2 FL (6.5-10.1) 5.3 FL (6.5-10.1) 5.1 FL (6.5-10.1) Neutrophils (%) (Auto) 67.4 % (45.0-75.0) 63.2 % (45.0-75.0) % (45.0-75.0) 73.4 % (45.0-75.0) Lymphocytes (%) (Auto) 26.7 % (20.0-45.0) 30.3 % (20.0-45.0) % (20.0-45.0) 23.4 % (20.0-45.0) Monocytes (%) (Auto) 3.7 % (1.0-10.0) 3.1 % (1.0-10.0) % (1.0-10.0) 2.3 % (1.0-10.0) Eosinophils (%) (Auto) 1.6 % (0.0-3.0) 2.8 % (0.0-3.0) % (0.0-3.0) 0.6 % (0.0-3.0) Basophils (%) (Auto) 0.6 % (0.0-2.0) 0.7 % (0.0-2.0) % (0.0-2.0) 0.3 % (0.0-2.0) Sodium Level 139 MMOL/L (136-145) 139 MMOL/L (136-145) 138 MMOL/L (136-145) Potassium Level 3.7 MMOL/L (3.5-5.1) 3.8 MMOL/L (3.5-5.1) 3.6 MMOL/L (3.5-5.1) Chloride Level 100 MMOL/L (98-107) 102 MMOL/L (98-107) 101 MMOL/L (98-107) Carbon Dioxide Level 24 MMOL/L (21-32) 21 MMOL/L (21-32) 24 MMOL/L (21-32) Anion Gap 15 mmol/L (5-15) 16 mmol/L (5-15) 13 mmol/L (5-15) Blood Urea Nitrogen 156 mg/dL (7-18) 167 mg/dL (7-18) 154 mg/dL (7-18) Creatinine 3.9 MG/DL (0.55-1.30) 4.0 MG/DL (0.55-1.30) 3.6 MG/DL (0.55-1.30) Estimat Glomerular Filtration Rate 11.1 mL/min (>60) 10.8 mL/min (>60) 12.2 mL/min (>60) Glucose Level 181 MG/DL (74-106) 165 MG/DL (74-106) 186 MG/DL (74-106) Calcium Level 8.6 MG/DL (8.5-10.1) 8.2 MG/DL (8.5-10.1) 8.5 MG/DL (8.5-10.1) Phosphorus Level 5.1 MG/DL (2.5-4.9) 4.0 MG/DL (2.5-4.9) Magnesium Level 2.8 MG/DL (1.8-2.4) 2.5 MG/DL (1.8-2.4) Total Bilirubin 0.5 MG/DL (0.2-1.0) 0.4 MG/DL (0.2-1.0) 0.4 MG/DL (0.2-1.0) Direct Bilirubin 0.2 MG/DL (0.0-0.3) Gamma Glutamyl Transpeptidase 138 U/L (5-85) 85 U/L (5-85) Aspartate Amino Transf (AST/SGOT) 313 U/L (15-37) 283 U/L (15-37) 234 U/L (15-37) Alanine Aminotransferase (ALT/SGPT) 415 U/L (12-78) 287 U/L (12-78) 212 U/L (12-78) Alkaline Phosphatase 497 U/L (46-116) 430 U/L (46-116) 362 U/L (46-116) C-Reactive Protein, Quantitative 13.6 mg/dL (0.00-0.90) 8.2 mg/dL (0.00-0.90) Total Protein 7.5 G/DL (6.4-8.2) 6.8 G/DL (6.4-8.2) 6.1 G/DL (6.4-8.2) Albumin 2.5 G/DL (3.4-5.0) 2.1 G/DL (3.4-5.0) 1.8 G/DL (3.4-5.0) Globulin 5.4 g/dL 4.7 g/dL 4.3 g/dL Albumin/Globulin Ratio 0.4 (1.0-2.7) 0.4 (1.0-2.7) 0.4 (1.0-2.7) Differential Total Cells Counted 100 Neutrophils % (Manual) 66 % (45-75) Lymphocytes % (Manual) 30 % (20-45) Monocytes % (Manual) 2 % (1-10) Eosinophils % (Manual) 2 % (0-3) Basophils % (Manual) 0 % (0-2) Band Neutrophils 0 % (0-8) Platelet Estimate Adequate Platelet Morphology Normal Hypochromasia 1+ Anisocytosis 1+ Pro-B-Type Natriuretic Peptide > 07135 pg/mL (0-125) Objective: WDWN NAD trach in place reduced breath sounds without rhonchi or wheeze [id number] without MRG NABS nontender no HSM no CCE contractures feeding tube in place no distention reduced LOC and weak nonfocal cachectic reviewed and edited Accucheck: 89 Malcolm Cruz MD Oct 04, 2019 13:11
--- NOTE | 2019-10-04 13:15 | Nephrology Progress Note ---
Assessment/Plan Problem List: (1) Liver enzyme elevation Assessment: Acute (2) ESRD (end stage renal disease) on dialysis (3) Malnutrition (4) Anemia in CKD (chronic kidney disease) (5) Hypotension (6) Thrombocytopenia (7) Sepsis Assessment: klebsiella in blood Assessment -Early sepsis with shock. -Healthcare-associated pneumonia. -Severe protein-calorie malnutrition. -Thrombocytopenia. - End-stage renal disease. - History of hypertension. - Bradycardia. - HypoThyroid Plan Hemodialysis done October 02 Started on steroid for high LFT and high smooth muscle antibody labs reviewed Smooth muscle antibody positive, Ig G elevated Liver enzymes elevated Tracheostomy September 07 Last dialysis September 26, next dialysis today October 02 Chest tube on the left side was put in on September 01 was discontinued September 07 Patient transfused 3 units of packed RBCs for low hemoglobin Remains full code Blood pressure fluctuating, will start hydralazine via NG tube for blood pressure Magnesium and potassium supplement intravenously as needed Patient underwent PEG placement August 16 patient remains intubated on ventilator Discussed with RN Aim to wean from ventilator or consider tracheostomy Permacath was removed on August 12 Dialysis 08/11 Transfusion as needed Patient had hematemesis meds IV as possible Surveillance blood cultures tomorrow Plan to put the permacath back in on Thursday if cultures are negative keep BP and BS in check Inflammatory markers per orders Subjective ROS Limited/Unobtainable: Yes Objective Objective Last 24 Hour Vital Signs Date Time Temp Pulse Resp B/P (MAP) Pulse Ox O2 Delivery O2 Flow Rate FiO2 10/04/19 12:03 97.0 76 19 155/68 (97) 97 10/04/19 11:53 21 10/04/19 11:52 Mechanical Ventilator 10/04/19 11:46 73 10/04/19 10:49 72 18 Mechanical Ventilator 10/04/19 08:37 71 172/79 10/04/19 08:36 172/79 10/04/19 08:36 71 172/79 10/04/19 08:00 21 10/04/19 08:00 96.6 74 18 172/79 (110) 99 10/04/19 08:00 Mechanical Ventilator 10/04/19 07:52 67 10/04/19 07:45 63 18 Mechanical Ventilator 10/04/19 05:00 62 18 21 10/04/19 04:00 97.0 70 24 160/72 (101) 100 10/04/19 04:00 Mechanical Ventilator 10/04/19 04:00 21 10/04/19 03:36 60 10/04/19 02:46 61 18 100 Mechanical Ventilator 21 67 18 21 10/04/19 00:38 171/78 10/04/19 00:00 Mechanical Ventilator 10/04/19 00:00 97.0 64 18 171/78 (109) 100 10/04/19 00:00 21 10/03/19 23:30 67 10/03/19 22:32 61 18 100 Mechanical Ventilator 21 65 18 21 10/03/19 21:00 61 80/30 10/03/19 20:00 96.7 61 18 168/88 (114) 100 10/03/19 20:00 Mechanical Ventilator 10/03/19 20:00 21 10/03/19 19:29 67 18 100 Mechanical Ventilator 21 68 18 21 10/03/19 19:07 80 10/03/19 16:00 96.1 69 19 179/90 (119) 100 10/03/19 15:56 21 10/03/19 15:55 Mechanical Ventilator 10/03/19 15:35 67 10/03/19 15:20 71 19 100 Mechanical Ventilator 21 65 20 21 Intake and Output 10/03/19 10/04/19 19:00 07:00 Intake Total 380 ml 500 ml Output Total 550 ml 200 ml Balance -170 ml 300 ml Intake Free Water 100 ml 150 ml Tube Feeding 280 ml 350 ml Output Urine Total 550 ml 200 ml # Bowel Movements 1 2 Laboratory Tests 10/04/19 03:20: White Blood Count 7.8, Red Blood Count 2.24L, Hemoglobin 6.7*L, Hematocrit 19.6L , Mean Corpuscular Volume 87, Mean Corpuscular Hemoglobin 30.1, Mean Corpuscular Hemoglobin Concent 34.4, Red Cell Distribution Width 14.3, Platelet Count 161, Mean Platelet Volume 5.3L, Neutrophils (%) (Auto) , Lymphocytes (%) ( Auto) , Monocytes (%) (Auto) , Eosinophils (%) (Auto) , Basophils (%) (Auto) , Differential Total Cells Counted 100, Neutrophils % (Manual) 66, Lymphocytes % ( Manual) 30, Monocytes % (Manual) 2, Eosinophils % (Manual) 2, Basophils % ( Manual) 0, Band Neutrophils 0, Platelet Estimate Adequate, Platelet Morphology Normal, Hypochromasia 1+, Anisocytosis 1+, Sodium Level 138, Potassium Level 3.6 , Chloride Level 101, Carbon Dioxide Level 24, Anion Gap 13, Blood Urea Nitrogen 154H, Creatinine 3.6H, Estimat Glomerular Filtration Rate 12.2, Glucose Level 186H, Calcium Level 8.5, Phosphorus Level 4.0, Magnesium Level 2.5H, Total Bilirubin 0.4, Gamma Glutamyl Transpeptidase 85, Aspartate Amino Transf (AST/SGOT) 234H, Alanine Aminotransferase (ALT/SGPT) 212H, Alkaline Phosphatase 362H, C-Reactive Protein, Quantitative 8.2H, Pro-B-Type Natriuretic Peptide > 14134H, Total Protein 6.1L, Albumin 1.8L, Globulin 4.3, Albumin/ Globulin Ratio 0.4L 10/04/19 08:20: White Blood Count 13.1#H, Red Blood Count 2.84L, Hemoglobin 8.7L, Hematocrit 25.1L, Mean Corpuscular Volume 88, Mean Corpuscular Hemoglobin 30.5, Mean Corpuscular Hemoglobin Concent 34.6, Red Cell Distribution Width 15.1H, Platelet Count 208, Mean Platelet Volume 5.1L, Neutrophils (%) (Auto) 73.4, Lymphocytes (%) (Auto) 23.4, Monocytes (%) (Auto) 2.3, Eosinophils (%) (Auto) 0.6, Basophils (%) (Auto) 0.3 Height (Feet): 5 Height (Inches): 4.00 Weight (Pounds): 112 General Appearance: no apparent distress EENT: other - Trach and vent Cardiovascular: normal rate Respiratory/Chest: decreased breath sounds Abdomen: other - GT in place Objective no change William Blackwood MD Oct 04, 2019 13:15
--- NOTE | 2019-10-04 13:27 | Surgery Progress Note ---
Surgery Progress Note Subjective Procedure Performed 1. tracheostomy 2 removal of left tube thoracostomy Additional Comments no acute events labs noted exam stable Objective Last 24 Hour Vital Signs Date Time Temp Pulse Resp B/P (MAP) Pulse Ox O2 Delivery O2 Flow Rate FiO2 10/04/19 12:03 97.0 76 19 155/68 (97) 97 10/04/19 11:53 21 10/04/19 11:52 Mechanical Ventilator 10/04/19 11:46 73 10/04/19 10:49 72 18 Mechanical Ventilator 21 21 10/04/19 08:37 71 172/79 10/04/19 08:36 172/79 10/04/19 08:36 71 172/79 10/04/19 08:00 21 10/04/19 08:00 96.6 74 18 172/79 (110) 99 10/04/19 08:00 Mechanical Ventilator 10/04/19 07:52 67 10/04/19 07:45 63 18 Mechanical Ventilator 21 21 10/04/19 05:00 62 18 21 10/04/19 04:00 97.0 70 24 160/72 (101) 100 10/04/19 04:00 Mechanical Ventilator 10/04/19 04:00 21 10/04/19 03:36 60 10/04/19 02:46 61 18 100 Mechanical Ventilator 21 67 18 21 10/04/19 00:38 171/78 10/04/19 00:00 Mechanical Ventilator 10/04/19 00:00 97.0 64 18 171/78 (109) 100 10/04/19 00:00 21 10/03/19 23:30 67 10/03/19 22:32 61 18 100 Mechanical Ventilator 21 65 18 21 10/03/19 21:00 61 80/30 10/03/19 20:00 96.7 61 18 168/88 (114) 100 10/03/19 20:00 Mechanical Ventilator 10/03/19 20:00 21 10/03/19 19:29 67 18 100 Mechanical Ventilator 21 68 18 21 10/03/19 19:07 80 10/03/19 16:00 96.1 69 19 179/90 (119) 100 10/03/19 15:56 21 10/03/19 15:55 Mechanical Ventilator 10/03/19 15:35 67 10/03/19 15:20 71 19 100 Mechanical Ventilator 21 65 20 21 I&O Intake and Output 10/03/19 10/04/19 19:00 07:00 Intake Total 380 ml 500 ml Output Total 550 ml 200 ml Balance -170 ml 300 ml Intake Free Water 100 ml 150 ml Tube Feeding 280 ml 350 ml Output Urine Total 550 ml 200 ml # Bowel Movements 1 2 Dressing: dry Wound: clean Cardiovascular: RSR Respiratory: decreased breath sounds Abdomen: soft, non-tender, present bowel sounds Extremities: no tenderness, no cyanosis Laboratory Tests Test 10/04/19 03:20 10/04/19 08:20 White Blood Count 7.8 K/UL (4.8-10.8) 13.1 K/UL (4.8-10.8) #H Red Blood Count 2.24 M/UL (4.20-5.40) L 2.84 M/UL (4.20-5.40) L Hemoglobin 6.7 G/DL (12.0-16.0) *L 8.7 G/DL (12.0-16.0) L Hematocrit 19.6 % (37.0-47.0) L 25.1 % (37.0-47.0) L Mean Corpuscular Volume 87 FL (80-99) 88 FL (80-99) Mean Corpuscular Hemoglobin 30.1 PG (27.0-31.0) 30.5 PG (27.0-31.0) Mean Corpuscular Hemoglobin Concent 34.4 G/DL (32.0-36.0) 34.6 G/DL (32.0-36.0) Red Cell Distribution Width 14.3 % (11.6-14.8) 15.1 % (11.6-14.8) H Platelet Count 161 K/UL (150-450) 208 K/UL (150-450) Mean Platelet Volume 5.3 FL (6.5-10.1) L 5.1 FL (6.5-10.1) L Neutrophils (%) (Auto) % (45.0-75.0) 73.4 % (45.0-75.0) Lymphocytes (%) (Auto) % (20.0-45.0) 23.4 % (20.0-45.0) Monocytes (%) (Auto) % (1.0-10.0) 2.3 % (1.0-10.0) Eosinophils (%) (Auto) % (0.0-3.0) 0.6 % (0.0-3.0) Basophils (%) (Auto) % (0.0-2.0) 0.3 % (0.0-2.0) Differential Total Cells Counted 100 Neutrophils % (Manual) 66 % (45-75) Lymphocytes % (Manual) 30 % (20-45) Monocytes % (Manual) 2 % (1-10) Eosinophils % (Manual) 2 % (0-3) Basophils % (Manual) 0 % (0-2) Band Neutrophils 0 % (0-8) Platelet Estimate Adequate Platelet Morphology Normal Hypochromasia 1+ Anisocytosis 1+ Sodium Level 138 MMOL/L (136-145) Potassium Level 3.6 MMOL/L (3.5-5.1) Chloride Level 101 MMOL/L (98-107) Carbon Dioxide Level 24 MMOL/L (21-32) Anion Gap 13 mmol/L (5-15) Blood Urea Nitrogen 154 mg/dL (7-18) H Creatinine 3.6 MG/DL (0.55-1.30) H Estimat Glomerular Filtration Rate 12.2 mL/min (>60) Glucose Level 186 MG/DL (74-106) H Calcium Level 8.5 MG/DL (8.5-10.1) Phosphorus Level 4.0 MG/DL (2.5-4.9) Magnesium Level 2.5 MG/DL (1.8-2.4) H Total Bilirubin 0.4 MG/DL (0.2-1.0) Gamma Glutamyl Transpeptidase 85 U/L (5-85) Aspartate Amino Transf (AST/SGOT) 234 U/L (15-37) H Alanine Aminotransferase (ALT/SGPT) 212 U/L (12-78) H Alkaline Phosphatase 362 U/L (46-116) H C-Reactive Protein, Quantitative 8.2 mg/dL (0.00-0.90) H Pro-B-Type Natriuretic Peptide > 03811 pg/mL (0-125) H Total Protein 6.1 G/DL (6.4-8.2) L Albumin 1.8 G/DL (3.4-5.0) L Globulin 4.3 g/dL Albumin/Globulin Ratio 0.4 (1.0-2.7) L Assessment Post-op Diagnosis same Plan Problems: (1) Malnutrition Assessment & Plan: DAILY ESTIMATED NEEDS: Needs based on ESRD+ HD, underweight, wound/ 39.5kg 35-40 kcals/kg 7349-6045 total kcals 1.25-1.8 g protein/kg 49-71 g total protein 20-22 mL/kg 790-869 total fluid mLs NUTRITION DIAGNOSIS: * Increased kcal and protein needs r/t underweight status, HD needs, wuond healing as evidenced by pt is underweight per guidelines, ESRD, on HD, admitted non-blanching erythema wounds @ BL heels and sacrum * Swallowing difficulty R/T dysphagia as evidenced by RESEARCH AND DEVELOPMENT SCIENTIST recommends temporary nonoral feeding at this time, s/p NGT insertion, on NGT feeding-> now s/p self removal, NPO. CURRENT TF:NPO PO DIET RECOMMENDATIONS: WHEN SAFE FOR ORAL DIET -> renal/ texture per RESEARCH AND DEVELOPMENT SCIENTIST ENTERAL NUTRITION RECOMMENDATIONS: W/ GI access: Nepro @ 35ml/hr x 22 hrs to provide 770ml, 1386kcal, 62g prot, 560ml free water * W/ GI access, resume TF on Nepro * Initiate Nepro @ 15ml/hr x 6 hrs, advance 10ml q 4-6 hrs as tolerated to goal rate. * Hold 1 hour before and after Synthroid med * HOB over 30 degrees/ water flush per MD. ADDITIONAL RECOMMENDATIONS: 1) Calibrated bed scale wt for accurate CBW -> daily wt monitoring Per HD record: dry wt on 07/30=39.5kg (87lbs) 2) Wound care: (W/ GI access) add Nephorivte x 1 + Balta BID 3) Monitor NPO status: without GI access at this time, s/p pulling out NGT 4) Monitor for hypoglycemia while NPO 5) Monitor for continuity of HD (2) Septic arthritis Assessment & Plan: Pt presented on admission with generalized scaly rash . pt noted to be restless and scratching at skin. Bleeding from oral mucosa noted. Joint deformity noted to R shoulder. Surgical incision approximated with 11 sutures. Erythema but no exudate,or elevation in skin temp at site of incision. Historical incision R hip that is tunneled.Small amt seropurulent exudate noted. Periwound is erythematous,but no elevation in skin temp noted. No odor noted. Non-blanching erythema noted to sacrum. Perianal area is erythematous and excoriated. L heel is boggy with non-blanching erythema. R heel is soft with non-blanching erythema. No evidence of skin breakdown to all other bony prominences. Tx.plan: Cover R shoulder with Drsg and change daily and prn. Cleanse R hip wound with Saline. Apply Therahoney.Apply Cavilon Skin Barrier periwound. Cover with Optifoam drsg. Change every 3 days and prn. Apply Moisture Barrier Paste to perianal area and buttocks. Cover Sacrum with Optifoam drsg. Change every 3 days and prn. Apply Cavilon Skin Barrier to both heels. Cover each heel with Optifoam drsg. Change every 7 days and prn. APM/ELVIA Mattress overlay. Reposition at least every 2hours or as tolerated. Off-load heels with pillow. HD cath necessary HD as renal likely will need intubation 19 x 11 x 11 mm hypoechoic area in the liver adjacent to the gallbladder fossa. Although location is typical for area of focal sparing in a fatty liver, there are no findings to indicate fatty liver and this is a new finding since fairly recent previous exam. Therefore the possibility of a process such as small abscess should be considered. Atrophic echogenic kidneys Negative for gallstones or dilated bile ducts (3) Wound, open, hip or thigh with complication Assessment & Plan: slow healing will need nutritional optimization difficult ng tube peg when stable sutures removed from right shoulder comfortable wean vent may need trach (4) Abscess of right hip (5) possible septic arthritis (6) Renal failure (ARF), acute on chronic Assessment & Plan: cont HD will need tunneled cath placement okay to use fem line for now but will need change soon. line monitored and clean dressings going well (7) Pneumonia Assessment & Plan: intubated on vent support not tolerating weaning may need trach hemothorax likely after thoracentesis Chest CT noted Left chest tube placed With plan for trach chest tube can be considered but overall prognosis is very poor s/p trach left chest tub eout cxr noted and okay downgrade left pleural effusion dressings saturated will need to monitor. may need another chest tube as may not heal well on left side Anasarca, with as mentioned above diffuse edema of the soft tissues, trace ascites, and bilateral pleural effusions No hepatic abnormality to correlate with suspected small pericholecystic lesion in the liver described on recent sonogram. The lesion may be occult on noncontrast CT, may have been artifactual or may have resolved in the interim. Consider repeat sonography in a few days to assess progression No definite acute abdominal process otherwise Improved but still sizable left pleural effusion with minimal residual hemoperitoneum since prior CT scan of 09/01/2019. There is near complete atelectasis of the left lower lobe. There is a small right pleural effusion with atelectatic changes of the right lower lobe and right perihilar dense consolidation. These appear improved since a prior CT of 09/01/2019 Increased crazy paving type opacity within the right middle lobe since previous August [address], may reflect an area of increasing infiltrate, versus focal edema. There is also some dense consolidation of the perihilar right lower lobe which is improved since the previous August 31 CT Right groin temporary dialysis catheter in good position Atrophic kidneys, consistent with known history of chronic renal disease L2 compression fracture deformity, and advanced degenerative changes of the L2- L3 disc. Similar to prior study Marroquin catheter hold on repeat chest tube (8) Liver enzyme elevation Assessment & Plan: likely shock liver improving trend Camilo James Oct 04, 2019 13:27
--- NOTE | 2019-10-04 14:23 | General Progress Note ---
Assessment/Plan Problem List: (1) Hypothyroid ICD Codes: E03.9 - Hypothyroidism, unspecified SNOMED: 10154060 (2) ESRD (end stage renal disease) on dialysis ICD Codes: N18.6 - End stage renal disease; Z99.2 - Dependence on renal dialysis SNOMED: 174628155 (3) Hypotension ICD Codes: I95.9 - Hypotension, unspecified SNOMED: 27990700 Qualifiers: Qualified Codes: I95.3 - Hypotension of hemodialysis (4) Pneumonia ICD Codes: J18.9 - Pneumonia, unspecified organism SNOMED: 674004467 Qualifiers: Qualified Codes: J18.9 - Pneumonia, unspecified organism (5) Diabetes mellitus ICD Codes: E11.9 - Type 2 diabetes mellitus without complications SNOMED: 65609340 Status: stable, not improved, unchanged, deteriorating Assessment/Plan: continue Levothyroxine tablet 125 mcg daily - TSH has improved repeat TSH, free 4 next week Subjective ROS Limited/Unobtainable: Yes Allergies: Coded Allergies: VANCOMYCIN (Unverified Allergy, Unknown, 08/02/19) Subjective events noted interval notes reviewed on vent on TF TSH has improved Objective Last 24 Hour Vital Signs Date Time Temp Pulse Resp B/P (MAP) Pulse Ox O2 Delivery O2 Flow Rate FiO2 10/04/19 12:03 97.0 76 19 155/68 (97) 97 10/04/19 11:53 21 10/04/19 11:52 Mechanical Ventilator 10/04/19 11:46 73 10/04/19 10:49 72 18 Mechanical Ventilator 21 21 10/04/19 08:37 71 172/79 10/04/19 08:36 172/79 10/04/19 08:36 71 172/79 10/04/19 08:00 21 10/04/19 08:00 96.6 74 18 172/79 (110) 99 10/04/19 08:00 Mechanical Ventilator 10/04/19 07:52 67 10/04/19 07:45 63 18 Mechanical Ventilator 21 21 10/04/19 05:00 62 18 21 10/04/19 04:00 97.0 70 24 160/72 (101) 100 10/04/19 04:00 Mechanical Ventilator 10/04/19 04:00 21 10/04/19 03:36 60 10/04/19 02:46 61 18 100 Mechanical Ventilator 21 67 18 21 10/04/19 00:38 171/78 10/04/19 00:00 Mechanical Ventilator 10/04/19 00:00 97.0 64 18 171/78 (109) 100 10/04/19 00:00 21 10/03/19 23:30 67 10/03/19 22:32 61 18 100 Mechanical Ventilator 21 65 18 21 10/03/19 21:00 61 80/30 10/03/19 20:00 96.7 61 18 168/88 (114) 100 10/03/19 20:00 Mechanical Ventilator 10/03/19 20:00 21 10/03/19 19:29 67 18 100 Mechanical Ventilator 21 68 18 21 10/03/19 19:07 80 10/03/19 16:00 96.1 69 19 179/90 (119) 100 10/03/19 15:56 21 10/03/19 15:55 Mechanical Ventilator 10/03/19 15:35 67 10/03/19 15:20 71 19 100 Mechanical Ventilator 21 65 20 21 Intake and Output 10/03/19 10/04/19 19:00 07:00 Intake Total 380 ml 500 ml Output Total 550 ml 200 ml Balance -170 ml 300 ml Intake Free Water 100 ml 150 ml Tube Feeding 280 ml 350 ml Output Urine Total 550 ml 200 ml # Bowel Movements 1 2 Laboratory Tests 10/04/19 03:20: White Blood Count 7.8, Red Blood Count 2.24L, Hemoglobin 6.7*L, Hematocrit 19.6L , Mean Corpuscular Volume 87, Mean Corpuscular Hemoglobin 30.1, Mean Corpuscular Hemoglobin Concent 34.4, Red Cell Distribution Width 14.3, Platelet Count 161, Mean Platelet Volume 5.3L, Neutrophils (%) (Auto) , Lymphocytes (%) ( Auto) , Monocytes (%) (Auto) , Eosinophils (%) (Auto) , Basophils (%) (Auto) , Differential Total Cells Counted 100, Neutrophils % (Manual) 66, Lymphocytes % ( Manual) 30, Monocytes % (Manual) 2, Eosinophils % (Manual) 2, Basophils % ( Manual) 0, Band Neutrophils 0, Platelet Estimate Adequate, Platelet Morphology Normal, Hypochromasia 1+, Anisocytosis 1+, Sodium Level 138, Potassium Level 3.6 , Chloride Level 101, Carbon Dioxide Level 24, Anion Gap 13, Blood Urea Nitrogen 154H, Creatinine 3.6H, Estimat Glomerular Filtration Rate 12.2, Glucose Level 186H, Calcium Level 8.5, Phosphorus Level 4.0, Magnesium Level 2.5H, Total Bilirubin 0.4, Gamma Glutamyl Transpeptidase 85, Aspartate Amino Transf (AST/SGOT) 234H, Alanine Aminotransferase (ALT/SGPT) 212H, Alkaline Phosphatase 362H, C-Reactive Protein, Quantitative 8.2H, Pro-B-Type Natriuretic Peptide > 91156X, Total Protein 6.1L, Albumin 1.8L, Globulin 4.3, Albumin/ Globulin Ratio 0.4L 10/04/19 08:20: White Blood Count 13.1#H, Red Blood Count 2.84L, Hemoglobin 8.7L, Hematocrit 25.1L, Mean Corpuscular Volume 88, Mean Corpuscular Hemoglobin 30.5, Mean Corpuscular Hemoglobin Concent 34.6, Red Cell Distribution Width 15.1H, Platelet Count 208, Mean Platelet Volume 5.1L, Neutrophils (%) (Auto) 73.4, Lymphocytes (%) (Auto) 23.4, Monocytes (%) (Auto) 2.3, Eosinophils (%) (Auto) 0.6, Basophils (%) (Auto) 0.3 Height (Feet): 5 Height (Inches): 4.00 Weight (Pounds): 112 General Appearance: cachetic Neck: normal alignment Cardiovascular: normal rate Respiratory/Chest: decreased breath sounds Abdomen: normal bowel sounds Pelvis: normal external exam Objective Current Medications Medications (Trade) Dose Ordered Sig/Javier Route PRN Reason Start Time Stop Time Status Last Admin Dose Admin Acetylcysteine (Mucomyst) 100 mg Q4HRT [facility] 08/31/19 19:00 11/29/19 18:59 10/04/19 10:47 Albuterol/ Ipratropium (Albuterol/ Ipratropium) 3 ml Q4HRT [facility] 09/22/19 15:00 12/09/19 14:59 10/04/19 10:47 Amlodipine Besylate (Norvasc) 5 mg BID ORAL 09/25/19 09:00 10/25/19 08:59 10/04/19 08:37 Chlorhexidine Gluconate (Nae-Hex 2%) 1 applic DAILY@1999 TOPIC 09/17/19 20:00 7/3/20 19:59 10/03/19 21:14 Clonidine HCl (Catapres Tab) 0.1 mg Q4H PRN ORAL For High Blood Pressure 09/22/19 21:00 12/21/19 20:59 10/04/19 00:38 Dextrose (Dextrose 50%) 25 ml Q30M PRN IV Hypoglycemia 09/02/19 06:15 12/01/19 06:14 09/04/19 12:11 Dextrose (Dextrose 50%) 50 ml Q30M PRN IV Hypoglycemia 09/02/19 06:15 12/01/19 06:14 Lansoprazole (Prevacid) 30 mg DAILY GT 09/27/19 09:00 10/27/19 08:59 10/04/19 08:36 Levothyroxine Sodium (Synthroid) 125 mcg DAILY@0630 ORAL 09/22/19 06:30 10/22/19 06:29 10/04/19 05:56 Losartan Potassium (Cozaar) 50 mg DAILY GT 10/03/19 09:00 11/02/19 08:59 10/04/19 08:36 Metoprolol Tartrate (Lopressor) 25 mg Q12HR ORAL 10/01/19 09:00 12/30/19 08:59 10/04/19 08:36 Prednisone (predniSONE) 30 mg DAILY ORAL 10/03/19 09:00 11/02/19 08:59 10/04/19 08:36 Psyllium Hydrophilic Mucilloid (Metamucil) 1 pkt DAILY ORAL 09/22/19 15:00 10/22/19 14:59 10/04/19 08:36 Sevelamer Carbonate (Renvela) 800 mg Q8HR NG 09/25/19 14:00 12/24/19 13:59 10/04/19 13:41 Antonio Jacome MD Oct 04, 2019 14:23
[2019-10-04 16:00] VITALS: BP 157/76
[2019-10-04 20:00] VITALS: BP 154/79
[2019-10-04] MEDS: Dyna-Hex 2% Top Sol 2oz TOPIC SCH (20:37)
[2019-10-05] VITALS (7 sets, daily range): BP systolic 156–168; BP diastolic 59–104
[2019-10-05] MEDS: Albuterol/Ipratropium 3ml neb HHN SCH ×6 (03:42→23:00)
[2019-10-05 05:06] LABS: HEMATOCRIT 20.9 % (37.0-47.0); HEMOGLOBIN 7.4 G/DL (12.0-16.0); MEAN CORPUSCULAR VOLUME 88 FL (80-99); PLATELET COUNT 204 K/UL (150-450); RED BLOOD COUNT 2.36 M/UL (4.20-5.40); RED CELL DISTRIBUTION WIDTH 15.2 % (11.6-14.8); WHITE BLOOD COUNT 21.2 K/UL (4.8-10.8)
[2019-10-05 05:26] LABS: ALANINE AMINOTRANSFERASE 186 U/L (12-78); ALBUMIN/GLOBULIN RATIO 0.4 (1.0-2.7); ALKALINE PHOSPHATASE 400 U/L (46-116); ANION GAP 16 mmol/L (5-15); ASPARTATE AMINO TRANSFERASE 114 U/L (15-37); BILIRUBIN,TOTAL 0.4 MG/DL (0.2-1.0); BLOOD UREA NITROGEN 157 mg/dL (7-18); CALCIUM 8.2 MG/DL (8.5-10.1); CARBON DIOXIDE 21 MMOL/L (21-32); CHLORIDE 102 MMOL/L (98-107); CREATININE 3.9 MG/DL (0.55-1.30); POTASSIUM 3.9 MMOL/L (3.5-5.1); SODIUM 139 MMOL/L (136-145)
[2019-10-05] MEDS: Levothyroxine 125mcg tab ORAL SCH (06:00)
[2019-10-05] MEDS: Renvela 800mg Pkt NG SCH ×3 (06:00→22:13)
--- NOTE | 2019-10-05 06:14 | Hematology/Onc Progress Note ---
Assessment/Plan Assessment/Plan # Thrombocytopenia ow THROMBOCYTOSIS - potential causes multifactorial, evaluate liver and viral etiologies to begin, in this case due to sepsis with septic shock also with cirrhosis and liver disease --> Hep panel and HIV ordered --> neg --> US abd to evaluate for cirrhosis and hsm ordered --> reviewed --> Peripheral smear ordered to evaluate for blasts /schistocytes --> none noted --> abx and other meds have been reviewed --> ok for ppx if plt >50k w/ either heparin or lovenox --> Transfuse if Plt < 20k and fever, or if Plt < 10k without fever --> okay for permacath change once plt better--> for 08/14 --> plt trend: 43-->83-->237k-->292-->341-->315-->388 -->444-->530-->252k-->344- >529->525k-->273 # Anemia of chronic disease due to underlying chronic medical issues, multifactorial v Gi bleed --> Anemia workup has been ordered, rule out gi bleed --> No evidence of hemolysis is noted, peripheral smear has been reviewed. --> Hgb goal >7. Transfuse prn. --> Epogen has been started --> HOLD OFF IRON ferritin is >1000 --> Medications have been reviewed --> low threshold for gi evaluation in case has occult + --> hgb 9-->6.7-->9.2 -->10.5-->10.6 -->10.7-->10-->10.5-->9.8-->10.4-->9.5--> 3.6-->9.6-->9.7-->10-->10.3-->11->9.9->8.3->8.7-->8.1-->8.9-->7.4 --> blood tx: 08/11, 08/31, 10/03 --> CT Chest r/o hemothorax --> does show confirmation of a large left hemothorax. Complete atelectasis of the left lower lobe and partial left upper lobe atelectasis demonstrated. Mild rightward shift of the heart and mediastinum. --> stool ob negative # Leukocytosis with Sepsis with shock. --> abx as per id, recs noted--> off abx --> pressors as needed # Healthcare-associated pneumonia. --> recs reviewed --> abx: jung/micafungin-->jung-->off --> 08/24 chest: moderate left pleural effusion # Severe protein-calorie malnutrition. --> nutritional support # End-stage renal disease --> had as renal hd --> with permacath # History of hypertension. --> per cards, now with Bradycardia. # Resp failure s/p vent/trach # HypoThyroid # Ngt feedings # Dvt ppx scd's The timing of this note does not necessarily reflect the time of the patient was seen. Greatly appreciate consultation. Subjective Constitutional: Denies: no symptoms, chills, fever, malaise, weakness, other HEENT: Denies: no symptoms, eye pain, blurred vision, tearing, double vision, ear pain, ear discharge, nose pain, nose congestion, throat pain, throat swelling, mouth pain, mouth swelling, other Cardiovascular: Denies: no symptoms, chest pain, edema, irregular heart rate, lightheadedness, palpitations, syncope, other Respiratory: Denies: no symptoms, cough, shortness of breath, SOB with excertion, SOB at rest, sputum, wheezing, other Gastrointestinal/Abdominal: Denies: no symptoms, abdomen distended, abdominal pain, black stools, tarry stools, blood in stool, constipated, diarrhea, difficulty swallowing, nausea, poor appetite, poor fluid intake, rectal bleeding , vomiting, other Genitourinary: Denies: no symptoms, burning, discharge, frequency, flank pain, hematuria, incontinence, pain, urgency, other Neurologic/Psychiatric: Denies: no symptoms, anxiety, depressed, emotional problems, headache, numbness, paresthesia, pre-existing deficit, seizure, tingling, tremors, weakness, other Endocrine: Denies: no symptoms, excessive sweating, flushing, intolerance to cold, intolerance to heat, increased hunger, increased thirst, increased urine, unexplained weight gain, unexplained weight loss, other Allergies: Coded Allergies: VANCOMYCIN (Unverified Allergy, Unknown, 2/18/20) Subjective 08/11: no bleeding or chills, labs reviewed, no major bleeding, plt less than 50k 08/12: icu, s/p blood, hgb improved to 9.2, 08/14: icu, pending consent for thora and permacath, labs reviewed 08/15: new permacath placed, no bleeding, for hd, plt much improved, started lovenox sq 08/16: ett to be adjusted, bp on high end, micafungin started, possible bronch 08/17: weaning as per pulm, no events otherwise, labs noted 08/18: no events no bleeding, remains confused on vent, for hd 08/20: icu, failed to wean, labs reviewed, jung 08/21: resting in bed, no overnight events, labs reviewed 08/22: awake, confused, restraints, no overnight events 08/23: no events, no bleeding, on ppi bid 08/24: icu, failed to wean, labs reviewed 08/25: no overnight events, us chest, restraints, afebrile 08/26 difficult in weaning, nad, seen by surg, pulm labs noted 08/27 awake on restraints, thoracentesis for am, labs reviewed 08/29 no bleeding, no night sweats, no major changes, on ppi bid 08/30 no major events, remains on vent, no bleeding, dw pcp 08/31 hgb dropped to 3.6, has been transfused with prbc, in icu, dw Rn, ct chest pend 09/01 no major events, no bleeding, labs noted, hgb remains low, hgb 9.6 09/03 lethargic, left chest tube dry/intact, off abx, vent 09/04 remains on a vent, synthroid, labs reviewed 09/05 awake and alert, no acute events, hgb 9.8, no new orders 09/06 no bleeding or chills, labs noted, no major events overnight, dw rn 09/07 no events, no night sweats, no bleeding, no fc, remains agitated in the am 09/08 remains in the icu, trach was done, on vent, abx off, on epo 09/10 transferred to sdu, restraints, vent, labs reviewed 09/11 tube feeds have been ongoing, no f/c, labs reviewed 09/12 no events, no bleeding, no night sweats, hgb 10 09/13 tsh is improved, remains confused, hgb is 11, no bleeding 09/14 no events, no bleeding, labs noted, vitals stable 09/15 confused, no acute events, restraints, dc planning 09/17 no new changes, no recent labs, placement pending 09/18 no events, no bleeding, no night sweats, fevers 09/19 nonverbal, vent, elevated bp, off abx 09/20 labs reviewed, david rn, no bleeding, meds reviewed 09/21 is a+o x 1, nonverbal, no bleeding, labs reviewed, no night sweats 09/22 no major events, no bleeding, no night sweats, no f/c, labs noted hgb 10.5 09/25 no events, no bleeding, labs noted, cbc reviewed 09/26 no events, with gtube feeds ongoing and with event, labs noted 09/27 labs have been reviewed, no night sweats, no fc 09/28 labs reviewed, no night sweats, hgb lower, but holding off on transfusion 09/29 alert, stool ob negative, h/h stable, dc planning 10/01 sdu, tsh improved, labs reviewed, elevated bp 10/02 no major events, no bleeding, labs reviewed, hgb 8, nv 10/03 no changes, labs reviewed, cbc noted, no bleeding, hgb 6.7, to get 1 unit prbc 10/04 labs noted, no bleeding epogen has been started, hgb 7.4, on epo Objective Objective Current Medications Medications (Trade) Dose Ordered Sig/Javier Route PRN Reason Start Time Stop Time Status Last Admin Dose Admin Acetylcysteine (Mucomyst) 100 mg Q4HRT [facility] 08/31/19 19:00 11/29/19 18:59 10/05/19 03:42 Albuterol/ Ipratropium (Albuterol/ Ipratropium) 3 ml Q4HRT [facility] 09/22/19 15:00 12/09/19 14:59 10/05/19 03:42 Amlodipine Besylate (Norvasc) 5 mg BID ORAL 09/25/19 09:00 10/25/19 08:59 10/04/19 17:31 Chlorhexidine Gluconate (Nae-Hex 2%) 1 applic DAILY@1999 TOPIC 09/17/19 20:00 12/16/19 19:59 10/04/19 20:37 Clonidine HCl (Catapres Tab) 0.1 mg Q4H PRN ORAL For High Blood Pressure 09/22/19 21:00 12/21/19 20:59 10/04/19 00:38 Dextrose (Dextrose 50%) 25 ml Q30M PRN IV Hypoglycemia 09/02/19 06:15 12/01/19 06:14 09/04/19 12:11 Dextrose (Dextrose 50%) 50 ml Q30M PRN IV Hypoglycemia 09/02/19 06:15 12/01/19 06:14 Lansoprazole (Prevacid) 30 mg DAILY GT 09/27/19 09:00 10/27/19 08:59 10/04/19 08:36 Levothyroxine Sodium (Synthroid) 125 mcg DAILY@629 ORAL 09/22/19 06:30 10/22/19 06:29 10/05/19 06:00 Losartan Potassium (Cozaar) 50 mg DAILY GT 10/03/19 09:00 11/02/19 08:59 10/04/19 08:36 Metoprolol Tartrate (Lopressor) 25 mg Q12HR ORAL 10/01/19 09:00 12/30/19 08:59 10/04/19 20:38 Prednisone (predniSONE) 30 mg DAILY ORAL 10/03/19 09:00 11/02/19 08:59 10/04/19 08:36 Psyllium Hydrophilic Mucilloid (Metamucil) 1 pkt DAILY ORAL 09/22/19 15:00 10/22/19 14:59 10/04/19 08:36 Sevelamer Carbonate (Renvela) 800 mg Q8HR NG 09/25/19 14:00 12/24/19 13:59 10/05/19 06:00 Last 24 Hour Vital Signs Date Time Temp Pulse Resp B/P (MAP) Pulse Ox O2 Delivery O2 Flow Rate FiO2 10/05/19 04:00 Mechanical Ventilator 10/05/19 04:00 97.5 85 18 162/81 (108) 98 10/05/19 04:00 21 10/05/19 04:00 74 10/05/19 03:00 76 18 100 Mechanical Ventilator 21 80 18 21 10/05/19 00:00 21 10/05/19 00:00 70 10/05/19 00:00 Mechanical Ventilator 10/05/19 00:00 97.7 71 18 160/73 (102) 100 10/04/19 20:40 73 18 100 Mechanical Ventilator 21 69 18 21 10/04/19 20:38 65 154/79 10/04/19 20:00 Mechanical Ventilator 10/04/19 20:00 97.7 65 18 154/79 (104) 100 10/04/19 20:00 21 10/04/19 19:37 69 10/04/19 17:31 66 156/74 10/04/19 16:00 97.8 70 18 157/76 (103) 98 10/04/19 15:53 76 19 100 Mechanical Ventilator 21 74 18 21 10/04/19 15:42 21 10/04/19 15:41 Mechanical Ventilator 10/04/19 15:30 75 10/04/19 12:03 97.0 76 19 155/68 (97) 97 10/04/19 11:53 21 10/04/19 11:52 Mechanical Ventilator 10/04/19 11:46 73 10/04/19 10:49 72 18 100 Mechanical Ventilator 21 70 19 21 10/04/19 08:37 71 172/79 10/04/19 08:36 172/79 10/04/19 08:36 71 172/79 10/04/19 08:00 21 10/04/19 08:00 96.6 74 18 172/79 (110) 99 10/04/19 08:00 Mechanical Ventilator 10/04/19 07:52 67 10/04/19 07:45 63 18 100 Mechanical Ventilator 21 65 18 21 10/04/19 05:00 62 18 21 10/04/19 04:00 97.0 70 24 160/72 (101) 100 10/04/19 04:00 Mechanical Ventilator 10/04/19 04:00 21 10/04/19 03:36 60 10/04/19 02:46 61 18 100 Mechanical Ventilator 21 67 18 21 10/04/19 00:38 171/78 10/04/19 00:00 Mechanical Ventilator 10/04/19 00:00 97.0 64 18 171/78 (109) 100 10/04/19 00:00 21 10/03/19 23:30 67 10/03/19 22:32 61 18 100 Mechanical Ventilator 21 65 18 21 10/03/19 21:00 61 80/30 10/03/19 20:00 96.7 61 18 168/88 (114) 100 10/03/19 20:00 Mechanical Ventilator 10/03/19 20:00 21 10/03/19 19:29 67 18 100 Mechanical Ventilator 21 68 18 21 10/03/19 19:07 80 10/03/19 16:00 96.1 69 19 179/90 (119) 100 10/03/19 15:56 21 10/03/19 15:55 Mechanical Ventilator 10/03/19 15:35 67 10/03/19 15:20 71 19 100 Mechanical Ventilator 21 65 20 21 10/03/19 11:58 21 10/03/19 11:57 96.4 65 18 172/80 (110) 96 10/03/19 11:52 Mechanical Ventilator 10/03/19 11:50 66 10/03/19 11:21 77 21 100 Mechanical Ventilator 21 55 19 21 10/03/19 08:02 56 20 100 Mechanical Ventilator 21 55 18 21 10/03/19 08:00 Mechanical Ventilator 10/03/19 08:00 96.8 68 18 154/74 (100) 99 10/03/19 08:00 21 10/03/19 07:53 68 Intake and Output 10/04/19 10/05/19 19:00 07:00 Intake Total 535 ml 450 ml Output Total 150 ml 200 ml Balance 385 ml 250 ml Intake Free Water 150 ml 100 ml Tube Feeding 385 ml 350 ml Output Urine Total 150 ml 200 ml # Bowel Movements 2 4 Labs Test 10/03/19 03:20 10/04/19 03:20 10/04/19 08:20 10/05/19 03:00 White Blood Count 10.1 K/UL (4.8-10.8) 7.8 K/UL (4.8-10.8) 13.1 K/UL (4.8-10.8) 21.2 K/UL (4.8-10.8) Red Blood Count 2.65 M/UL (4.20-5.40) 2.24 M/UL (4.20-5.40) 2.84 M/UL (4.20-5.40) 2.36 M/UL (4.20-5.40) Hemoglobin 8.0 G/DL (12.0-16.0) 6.7 G/DL (12.0-16.0) 8.7 G/DL (12.0-16.0) 7.4 G/DL (12.0-16.0) Hematocrit 23.4 % (37.0-47.0) 19.6 % (37.0-47.0) 25.1 % (37.0-47.0) 20.9 % (37.0-47.0) Mean Corpuscular Volume 89 FL (80-99) 87 FL (80-99) 88 FL (80-99) 88 FL (80- 99) Mean Corpuscular Hemoglobin 30.1 PG (27.0-31.0) 30.1 PG (27.0-31.0) 30.5 PG (27.0-31.0) 31.2 PG (27.0-31.0) Mean Corpuscular Hemoglobin Concent 34.0 G/DL (32.0-36.0) 34.4 G/DL (32.0-36.0) 34.6 G/DL (32.0-36.0) 35.3 G/DL (32.0-36.0) Red Cell Distribution Width 15.1 % (11.6-14.8) 14.3 % (11.6-14.8) 15.1 % (11.6-14.8) 15.2 % (11.6-14.8) Platelet Count 223 K/UL (150-450) 161 K/UL (150-450) 208 K/UL (150-450) 204 K/UL (150-450) Mean Platelet Volume 5.2 FL (6.5-10.1) 5.3 FL (6.5-10.1) 5.1 FL (6.5-10.1) 5.4 FL (6.5-10.1) Neutrophils (%) (Auto) 63.2 % (45.0-75.0) % (45.0-75.0) 73.4 % (45.0-75.0) % (45.0-75.0) Lymphocytes (%) (Auto) 30.3 % (20.0-45.0) % (20.0-45.0) 23.4 % (20.0-45.0) % (20.0-45.0) Monocytes (%) (Auto) 3.1 % (1.0-10.0) % (1.0-10.0) 2.3 % (1.0-10.0) % (1.0-10.0) Eosinophils (%) (Auto) 2.8 % (0.0-3.0) % (0.0-3.0) 0.6 % (0.0-3.0) % (0.0-3.0) Basophils (%) (Auto) 0.7 % (0.0-2.0) % (0.0-2.0) 0.3 % (0.0-2.0) % (0.0-2.0) Sodium Level 139 MMOL/L (136-145) 138 MMOL/L (136-145) 139 MMOL/L (136-145) Potassium Level 3.8 MMOL/L (3.5-5.1) 3.6 MMOL/L (3.5-5.1) 3.9 MMOL/L (3.5-5.1) Chloride Level 102 MMOL/L (98-107) 101 MMOL/L (98-107) 102 MMOL/L (98-107) Carbon Dioxide Level 21 MMOL/L (21-32) 24 MMOL/L (21-32) 21 MMOL/L (21-32) Anion Gap 16 mmol/L (5-15) 13 mmol/L (5-15) 16 mmol/L (5-15) Blood Urea Nitrogen 167 mg/dL (7-18) 154 mg/dL (7-18) 157 mg/dL (7-18) Creatinine 4.0 MG/DL (0.55-1.30) 3.6 MG/DL (0.55-1.30) 3.9 MG/DL (0.55-1.30) Estimat Glomerular Filtration Rate 10.8 mL/min (>60) 12.2 mL/min (>60) 11.1 mL/min (>60) Glucose Level 165 MG/DL (74-106) 186 MG/DL (74-106) 263 MG/DL (74-106) Calcium Level 8.2 MG/DL (8.5-10.1) 8.5 MG/DL (8.5-10.1) 8.2 MG/DL (8.5-10.1) Total Bilirubin 0.4 MG/DL (0.2-1.0) 0.4 MG/DL (0.2-1.0) 0.4 MG/DL (0.2-1.0) Aspartate Amino Transf (AST/SGOT) 283 U/L (15-37) 234 U/L (15-37) 114 U/L (15-37) Alanine Aminotransferase (ALT/SGPT) 287 U/L (12-78) 212 U/L (12-78) 186 U/L (12-78) Alkaline Phosphatase 430 U/L (46-116) 362 U/L (46-116) 400 U/L (46-116) Total Protein 6.8 G/DL (6.4-8.2) 6.1 G/DL (6.4-8.2) 6.9 G/DL (6.4-8.2) Albumin 2.1 G/DL (3.4-5.0) 1.8 G/DL (3.4-5.0) 2.0 G/DL (3.4-5.0) Globulin 4.7 g/dL 4.3 g/dL 4.9 g/dL Albumin/Globulin Ratio 0.4 (1.0-2.7) 0.4 (1.0-2.7) 0.4 (1.0-2.7) Differential Total Cells Counted 100 Neutrophils % (Manual) 66 % (45-75) Lymphocytes % (Manual) 30 % (20-45) Monocytes % (Manual) 2 % (1-10) Eosinophils % (Manual) 2 % (0-3) Basophils % (Manual) 0 % (0-2) Band Neutrophils 0 % (0-8) Platelet Estimate Adequate Platelet Morphology Normal Hypochromasia 1+ Anisocytosis 1+ Phosphorus Level 4.0 MG/DL (2.5-4.9) Magnesium Level 2.5 MG/DL (1.8-2.4) Gamma Glutamyl Transpeptidase 85 U/L (5-85) C-Reactive Protein, Quantitative 8.2 mg/dL (0.00-0.90) Pro-B-Type Natriuretic Peptide > 54448 pg/mL (0-125) Prothrombin Time 10.8 SEC (9.30-11.50) Prothromb Time International Ratio 1.0 (0.9-1.1) Activated Partial Thromboplast Time 33 SEC (23-33) Height (Feet): 5 Height (Inches): 4.00 Weight (Pounds): 112 Objective Physical Exam vitals: reviewed gen: nad pulm: on trach+ / vent, decreased breath sounds left, chest tube+ cv: rrr, no gmr abd: sfot, nt, nd ++ gt ext: no cce Gio Rob MD Oct 05, 2019 06:14
--- NOTE | 2019-10-05 06:52 | General Progress Note ---
Assessment/Plan Problem List: (1) Hypothyroid ICD Codes: E03.9 - Hypothyroidism, unspecified SNOMED: 52272113 (2) ESRD (end stage renal disease) on dialysis ICD Codes: N18.6 - End stage renal disease; Z99.2 - Dependence on renal dialysis SNOMED: 089912396 (3) Hypotension ICD Codes: I95.9 - Hypotension, unspecified SNOMED: 16605516 Qualifiers: Qualified Codes: I95.3 - Hypotension of hemodialysis (4) Pneumonia ICD Codes: J18.9 - Pneumonia, unspecified organism SNOMED: 536829186 Qualifiers: Qualified Codes: J18.9 - Pneumonia, unspecified organism (5) Diabetes mellitus ICD Codes: E11.9 - Type 2 diabetes mellitus without complications SNOMED: 67338176 Status: stable, not improved, unchanged, deteriorating Assessment/Plan: repeat TSH, free T4 continue Levothyroxine tablet 125 mcg daily - TSH has improved Subjective ROS Limited/Unobtainable: Yes Allergies: Coded Allergies: VANCOMYCIN (Unverified Allergy, Unknown, 08/02/19) Subjective events noted interval notes reviewed on vent on TF Objective Last 24 Hour Vital Signs Date Time Temp Pulse Resp B/P (MAP) Pulse Ox O2 Delivery O2 Flow Rate FiO2 10/05/19 04:00 Mechanical Ventilator 10/05/19 04:00 97.5 85 18 162/81 (108) 98 10/05/19 04:00 21 10/05/19 04:00 74 10/05/19 03:00 76 18 100 Mechanical Ventilator 21 80 18 21 10/05/19 00:00 21 10/05/19 00:00 70 10/05/19 00:00 Mechanical Ventilator 10/05/19 00:00 97.7 71 18 160/73 (102) 100 10/04/19 20:40 73 18 100 Mechanical Ventilator 21 69 18 21 10/04/19 20:38 65 154/79 10/04/19 20:00 Mechanical Ventilator 10/04/19 20:00 97.7 65 18 154/79 (104) 100 10/04/19 20:00 21 10/04/19 19:37 69 10/04/19 17:31 66 156/74 10/04/19 16:00 97.8 70 18 157/76 (103) 98 10/04/19 15:53 76 19 100 Mechanical Ventilator 21 74 18 21 4/21/20 15:42 21 10/04/19 15:41 Mechanical Ventilator 10/04/19 15:30 75 10/04/19 12:03 97.0 76 19 155/68 (97) 97 10/04/19 11:53 21 10/04/19 11:52 Mechanical Ventilator 10/04/19 11:46 73 10/04/19 10:49 72 18 100 Mechanical Ventilator 21 70 19 21 10/04/19 08:37 71 172/79 10/04/19 08:36 172/79 10/04/19 08:36 71 172/79 10/04/19 08:00 21 10/04/19 08:00 96.6 74 18 172/79 (110) 99 10/04/19 08:00 Mechanical Ventilator 10/04/19 07:52 67 10/04/19 07:45 63 18 100 Mechanical Ventilator 21 65 18 21 Intake and Output 10/04/19 10/05/19 19:00 07:00 Intake Total 535 ml 450 ml Output Total 150 ml 200 ml Balance 385 ml 250 ml Intake Free Water 150 ml 100 ml Tube Feeding 385 ml 350 ml Output Urine Total 150 ml 200 ml # Bowel Movements 2 4 Laboratory Tests 10/04/19 08:20: White Blood Count 13.1#H, Red Blood Count 2.84L, Hemoglobin 8.7L, Hematocrit 25.1L, Mean Corpuscular Volume 88, Mean Corpuscular Hemoglobin 30.5, Mean Corpuscular Hemoglobin Concent 34.6, Red Cell Distribution Width 15.1H, Platelet Count 208, Mean Platelet Volume 5.1L, Neutrophils (%) (Auto) 73.4, Lymphocytes (%) (Auto) 23.4, Monocytes (%) (Auto) 2.3, Eosinophils (%) (Auto) 0.6, Basophils (%) (Auto) 0.3 10/05/19 03:00: White Blood Count 21.2#H, Red Blood Count 2.36L, Hemoglobin 7.4L, Hematocrit 20.9L, Mean Corpuscular Volume 88, Mean Corpuscular Hemoglobin 31.2H, Mean Corpuscular Hemoglobin Concent 35.3, Red Cell Distribution Width 15.2H, Platelet Count 204, Mean Platelet Volume 5.4L, Neutrophils (%) (Auto) , Lymphocytes (%) (Auto) , Monocytes (%) (Auto) , Eosinophils (%) (Auto) , Basophils (%) (Auto) , Neutrophils % (Manual) [Pending], Lymphocytes % (Manual) [Pending], Platelet Estimate [Pending], Platelet Morphology [Pending], Prothrombin Time 10.8, Prothromb Time International Ratio 1.0, Activated Partial Thromboplast Time 33, Sodium Level 139, Potassium Level 3.9, Chloride Level 102, Carbon Dioxide Level 21, Anion Gap 16H, Blood Urea Nitrogen 157H, Creatinine 3.9H, Estimat Glomerular Filtration Rate 11.1, Glucose Level 263H, Calcium Level 8.2L, Total Bilirubin 0.4, Aspartate Amino Transf (AST/SGOT) 114H , Alanine Aminotransferase (ALT/SGPT) 186H, Alkaline Phosphatase 400H, Total Protein 6.9, Albumin 2.0L, Globulin 4.9, Albumin/Globulin Ratio 0.4L Height (Feet): 5 Height (Inches): 4.00 Weight (Pounds): 112 General Appearance: cachetic Neck: normal alignment Cardiovascular: normal rate Respiratory/Chest: decreased breath sounds Abdomen: normal bowel sounds Pelvis: normal external exam Objective Current Medications Medications (Trade) Dose Ordered Sig/Javier Route PRN Reason Start Time Stop Time Status Last Admin Dose Admin Acetylcysteine (Mucomyst) 100 mg Q4HRT [facility] 08/31/19 19:00 11/29/19 18:59 10/05/19 03:42 Albuterol/ Ipratropium (Albuterol/ Ipratropium) 3 ml Q4HRT [facility] 09/22/19 15:00 12/09/19 14:59 10/05/19 03:42 Amlodipine Besylate (Norvasc) 5 mg BID ORAL 09/25/19 09:00 10/25/19 08:59 10/04/19 17:31 Chlorhexidine Gluconate (Nae-Hex 2%) 1 applic DAILY@1999 TOPIC 09/17/19 20:00 12/16/19 19:59 10/04/19 20:37 Clonidine HCl (Catapres Tab) 0.1 mg Q4H PRN ORAL For High Blood Pressure 09/22/19 21:00 12/21/19 20:59 10/04/19 00:38 Dextrose (Dextrose 50%) 25 ml Q30M PRN IV Hypoglycemia 09/02/19 06:15 12/01/19 06:14 09/04/19 12:11 Dextrose (Dextrose 50%) 50 ml Q30M PRN IV Hypoglycemia 09/02/19 06:15 12/01/19 06:14 Epoetin Thomas (Epoetin Thomas-EPBX(NON ESRD)) 4,000 unit THU-THU-THU SUBQ 10/05/19 21:00 01/03/20 20:59 Lansoprazole (Prevacid) 30 mg DAILY GT 09/27/19 09:00 10/27/19 08:59 10/04/19 08:36 Levothyroxine Sodium (Synthroid) 125 mcg DAILY@0630 ORAL 09/22/19 06:30 10/22/19 06:29 10/05/19 06:00 Losartan Potassium (Cozaar) 50 mg DAILY GT 10/03/19 09:00 11/02/19 08:59 10/04/19 08:36 Metoprolol Tartrate (Lopressor) 25 mg Q12HR ORAL 10/01/19 09:00 12/30/19 08:59 10/04/19 20:38 Prednisone (predniSONE) 30 mg DAILY ORAL 10/03/19 09:00 11/02/19 08:59 10/04/19 08:36 Psyllium Hydrophilic Mucilloid (Metamucil) 1 pkt DAILY ORAL 09/22/19 15:00 10/22/19 14:59 10/04/19 08:36 Sevelamer Carbonate (Renvela) 800 mg Q8HR NG 09/25/19 14:00 12/24/19 13:59 10/05/19 06:00 Antonio Jacome MD Oct 05, 2019 06:52
--- NOTE | 2019-10-05 08:00 | Progress Note ---
DATE: 10/04/2019 CARDIOLOGY PROGRESS NOTE SUBJECTIVE: The patient remains on ventilator support via tracheostomy. Tolerating feedings, slight decrease of liver function studies. PHYSICAL EXAMINATION: VITAL SIGNS: Blood pressure elevated to 172/79, heart rate 81, respiratory rate 18, and afebrile. LUNGS: Bilateral breath sounds. Few rhonchi. Thin secretions. CARDIAC: Regular rhythm and rate. Normal S1, S2. Monitored rhythm sinus with no sustained ectopy. ABDOMEN: Soft. G-tube is intact. EXTREMITIES: No edema. LABORATORY DATA: White count 13, hemoglobin 8.7, earlier is a 6.7 and the patient was transfused packed red blood cells. Potassium 3.6, BUN 154, creatinine 3.6. AST and ALT is 234 and 212 respectively. IMPRESSION AND PLAN: Essentially unchanged. Concerns remain with regard to liver function. Recurring anemia due to chronic kidney disease. This required intermittent transfusions and the patient requires additional ultrafiltration due to volume overload with acute on chronic diastolic congestive heart failure. The patient is still not ready for transfer to subacute facility and remains on prednisone for possible autoimmune hepatitis. Abel Stubbs M.D. DR: BOOM JOB#: [id number] CC:
--- NOTE | 2019-10-05 08:18 | General Progress Note ---
Assessment/Plan Status: stable, not improved, unchanged, deteriorating Assessment/Plan: Assessment - Severe ulcerative esophagitis - mild elevation in LFT, Hepatitis B/C negative --> now sudden rise - ? related to new 1.9 cm mass near GB - ? autoimmune / high ESR - abnormal liver on CT - ? chronic disease / fibrosis - Resp failure - trach - s/p recent Chest tube and removal - Renal failure - aspiration risk --> s/p PEG - anemia - bradycardia - Poor prognosis Recommendations - CT reviewed -? shock liver. Repeat in am>>> improving - check autoimmune markers - pending>>> neg JOLIE - check AFP - GT care - water flushes - elevate HOB - monitor H&H - ppi -check stool ob>>>positive>>> ordered one more>>>seconf one neg patient poor candidate for GI procedures - vent -patient not a candidate for liver biopsy -given elevated SM Ab and igg, neg hepatitis panel >>>started prednisone 30 mg Day #4 -will add imuran -fu LFTS>>>improving Subjective ROS Limited/Unobtainable: No Allergies: Coded Allergies: VANCOMYCIN (Unverified Allergy, Unknown, 08/02/19) Subjective s/p blood transfusion Objective Last 24 Hour Vital Signs Date Time Temp Pulse Resp B/P (MAP) Pulse Ox O2 Delivery O2 Flow Rate FiO2 10/05/19 08:00 98.9 80 18 168/104 (125) 100 10/05/19 07:35 81 19 Mechanical Ventilator 21 10/05/19 04:00 Mechanical Ventilator 10/05/19 04:00 97.5 85 18 162/81 (108) 98 10/05/19 04:00 21 10/05/19 04:00 74 10/05/19 03:00 76 18 100 Mechanical Ventilator 21 80 18 21 10/05/19 00:00 21 10/05/19 00:00 70 10/05/19 00:00 Mechanical Ventilator 10/05/19 00:00 97.7 71 18 160/73 (102) 100 10/04/19 20:40 73 18 100 Mechanical Ventilator 21 69 18 21 10/04/19 20:38 65 154/79 10/04/19 20:00 Mechanical Ventilator 10/04/19 20:00 97.7 65 18 154/79 (104) 100 10/04/19 20:00 21 10/04/19 19:37 69 10/04/19 17:31 66 156/74 10/04/19 16:00 97.8 70 18 157/76 (103) 98 10/04/19 15:53 76 19 100 Mechanical Ventilator 21 74 18 21 10/04/19 15:42 21 10/04/19 15:41 Mechanical Ventilator 10/04/19 15:30 75 10/04/19 12:03 97.0 76 19 155/68 (97) 97 10/04/19 11:53 21 10/04/19 11:52 Mechanical Ventilator 10/04/19 11:46 73 10/04/19 10:49 72 18 100 Mechanical Ventilator 21 70 19 21 10/04/19 08:37 71 172/79 10/04/19 08:36 172/79 10/04/19 08:36 71 172/79 Intake and Output 10/04/19 10/05/19 19:00 07:00 Intake Total 535 ml 450 ml Output Total 150 ml 200 ml Balance 385 ml 250 ml Intake Free Water 150 ml 100 ml Tube Feeding 385 ml 350 ml Output Urine Total 150 ml 200 ml # Bowel Movements 2 4 Laboratory Tests 10/04/19 08:20: White Blood Count 13.1#H, Red Blood Count 2.84L, Hemoglobin 8.7L, Hematocrit 25.1L, Mean Corpuscular Volume 88, Mean Corpuscular Hemoglobin 30.5, Mean Corpuscular Hemoglobin Concent 34.6, Red Cell Distribution Width 15.1H, Platelet Count 208, Mean Platelet Volume 5.1L, Neutrophils (%) (Auto) 73.4, Lymphocytes (%) (Auto) 23.4, Monocytes (%) (Auto) 2.3, Eosinophils (%) (Auto) 0.6, Basophils (%) (Auto) 0.3 10/05/19 03:00: White Blood Count 21.2#H, Red Blood Count 2.36L, Hemoglobin 7.4L, Hematocrit 20.9L, Mean Corpuscular Volume 88, Mean Corpuscular Hemoglobin 31.2H, Mean Corpuscular Hemoglobin Concent 35.3, Red Cell Distribution Width 15.2H, Platelet Count 204, Mean Platelet Volume 5.4L, Neutrophils (%) (Auto) , Lymphocytes (%) (Auto) , Monocytes (%) (Auto) , Eosinophils (%) (Auto) , Basophils (%) (Auto) , Neutrophils % (Manual) [Pending], Lymphocytes % (Manual) [Pending], Platelet Estimate [Pending], Platelet Morphology [Pending], Prothrombin Time 10.8, Prothromb Time International Ratio 1.0, Activated Partial Thromboplast Time 33, Sodium Level 139, Potassium Level 3.9, Chloride Level 102, Carbon Dioxide Level 21, Anion Gap 16H, Blood Urea Nitrogen 157H, Creatinine 3.9H, Estimat Glomerular Filtration Rate 11.1, Glucose Level 263H, Calcium Level 8.2L, Total Bilirubin 0.4, Aspartate Amino Transf (AST/SGOT) 114H , Alanine Aminotransferase (ALT/SGPT) 186H, Alkaline Phosphatase 400H, Total Protein 6.9, Albumin 2.0L, Globulin 4.9, Albumin/Globulin Ratio 0.4L Height (Feet): 5 Height (Inches): 4.00 Weight (Pounds): 112 General Appearance: no apparent distress EENT: normal ENT inspection Neck: supple Cardiovascular: normal rate Respiratory/Chest: decreased breath sounds Abdomen: normal bowel sounds, non tender, soft Extremities: non-tender Kenny Rudolph MD Oct 05, 2019 08:18
[2019-10-05] MEDS: Losartan 50mg tab GT SCH (08:25)
[2019-10-05] MEDS: Metamucil Pkt ORAL SCH (08:32)
[2019-10-05 09:07] LABS: HEMATOCRIT 21.2 % (37.0-47.0); HEMOGLOBIN 7.4 G/DL (12.0-16.0); MEAN CORPUSCULAR VOLUME 89 FL (80-99); PLATELET COUNT 191 K/UL (150-450); RED BLOOD COUNT 2.39 M/UL (4.20-5.40); RED CELL DISTRIBUTION WIDTH 15.4 % (11.6-14.8)
[2019-10-05 09:27] LABS: WHITE BLOOD COUNT 25.8 K/UL (4.8-10.8)
--- NOTE | 2019-10-05 09:51 | Critical Care Progress Note ---
Assessment/Plan Assessment/Plan respiratory failure hypoxemia chronic renal failure toxic met encephalopathy severe protein calorie malnutrition cachexia left lung whiteout/collapse, anemia pulmonary edema + pleural effusion anasarca s/p CT placement and removal s/p trach hypernatremia leukocytosis ulcerative esophagitis PLAN trach care as is repeat CXR off antibiotics ? defer to ID care noted and reviewed monitor for fluid retention reviewed care and continue to monitor weaning unable renal follow up and dialysis prognosis poor overall for change keep negative close follow up discussed elevated head and monitor ROM watch fluid status and keep negative nutrition and monitor residuals doubt any significant improvement off load as able and monitor skin exam ROM as able and monitor contractures prognosis poor for recovery will need LTAC impression, plan, and exam edited and reviewed in detail care discussed with spiral tube winder - Subjective Interval Events: wbc rising on imuron and prednisone on vent ROS Limited/Unobtainable: Yes Condition: grave EKG Rhythm: Sinus Rhythm Residuals: minimal Tube Feeding Tolerated: yes I&O: Intake and Output 10/04/19 10/05/19 19:00 07:00 Intake Total 535 ml 450 ml Output Total 150 ml 200 ml Balance 385 ml 250 ml Intake Free Water 150 ml 100 ml Tube Feeding 385 ml 350 ml Output Urine Total 150 ml 200 ml # Bowel Movements 2 4 Critical Care - Objective ET-Tube: 7.0 ET Position: 19 Last 24 Hour Vital Signs Date Time Temp Pulse Resp B/P (MAP) Pulse Ox O2 Delivery O2 Flow Rate FiO2 10/05/19 08:25 168/104 10/05/19 08:25 80 168/104 10/05/19 08:24 80 168/104 10/05/19 08:00 98.9 80 18 168/104 (125) 100 10/05/19 08:00 Mechanical Ventilator 10/05/19 07:35 81 19 Mechanical Ventilator 21 10/05/19 04:00 Mechanical Ventilator 10/05/19 04:00 97.5 85 18 162/81 (108) 98 10/05/19 04:00 21 10/05/19 04:00 74 10/05/19 03:00 76 18 100 Mechanical Ventilator 21 80 18 21 10/05/19 00:00 21 10/05/19 00:00 70 10/05/19 00:00 Mechanical Ventilator 10/05/19 00:00 97.7 71 18 160/73 (102) 100 10/04/19 20:40 73 18 100 Mechanical Ventilator 21 69 18 21 10/04/19 20:38 65 154/79 10/04/19 20:00 Mechanical Ventilator 10/04/19 20:00 97.7 65 18 154/79 (104) 100 10/04/19 20:00 21 10/04/19 19:37 69 10/04/19 17:31 66 156/74 10/04/19 16:00 97.8 70 18 157/76 (103) 98 10/04/19 15:53 76 19 100 Mechanical Ventilator 21 74 18 21 10/04/19 15:42 21 10/04/19 15:41 Mechanical Ventilator 10/04/19 15:30 75 10/04/19 12:03 97.0 76 19 155/68 (97) 97 10/04/19 11:53 21 10/04/19 11:52 Mechanical Ventilator 10/04/19 11:46 73 10/04/19 10:49 72 18 100 Mechanical Ventilator 21 70 19 21 Labs: Laboratory Tests Test 10/05/19 03:00 10/05/19 08:30 White Blood Count 21.2 K/UL (4.8-10.8) #H 25.8 K/UL (4.8-10.8) *H Red Blood Count 2.36 M/UL (4.20-5.40) L 2.39 M/UL (4.20-5.40) L Hemoglobin 7.4 G/DL (12.0-16.0) L 7.4 G/DL (12.0-16.0) L Hematocrit 20.9 % (37.0-47.0) L 21.2 % (37.0-47.0) L Mean Corpuscular Volume 88 FL (80-99) 89 FL (80-99) Mean Corpuscular Hemoglobin 31.2 PG (27.0-31.0) H 30.9 PG (27.0-31.0) Mean Corpuscular Hemoglobin Concent 35.3 G/DL (32.0-36.0) 34.8 G/DL (32.0-36.0) Red Cell Distribution Width 15.2 % (11.6-14.8) H 15.4 % (11.6-14.8) H Platelet Count 204 K/UL (150-450) 191 K/UL (150-450) Mean Platelet Volume 5.4 FL (6.5-10.1) L 5.2 FL (6.5-10.1) L Neutrophils (%) (Auto) % (45.0-75.0) % (45.0-75.0) Lymphocytes (%) (Auto) % (20.0-45.0) % (20.0-45.0) Monocytes (%) (Auto) % (1.0-10.0) % (1.0-10.0) Eosinophils (%) (Auto) % (0.0-3.0) % (0.0-3.0) Basophils (%) (Auto) % (0.0-2.0) % (0.0-2.0) Differential Total Cells Counted 100 Neutrophils % (Manual) 86 % (45-75) H Pending Lymphocytes % (Manual) 12 % (20-45) L Pending Monocytes % (Manual) 2 % (1-10) Eosinophils % (Manual) 0 % (0-3) Basophils % (Manual) 0 % (0-2) Band Neutrophils 0 % (0-8) Platelet Estimate Adequate Pending Platelet Morphology Normal Pending Prothrombin Time 10.8 SEC (9.30-11.50) Prothromb Time International Ratio 1.0 (0.9-1.1) Activated Partial Thromboplast Time 33 SEC (23-33) Sodium Level 139 MMOL/L (136-145) Potassium Level 3.9 MMOL/L (3.5-5.1) Chloride Level 102 MMOL/L (98-107) Carbon Dioxide Level 21 MMOL/L (21-32) Anion Gap 16 mmol/L (5-15) H Blood Urea Nitrogen 157 mg/dL (7-18) H Creatinine 3.9 MG/DL (0.55-1.30) H Estimat Glomerular Filtration Rate 11.1 mL/min (>60) Glucose Level 263 MG/DL (74-106) H Calcium Level 8.2 MG/DL (8.5-10.1) L Total Bilirubin 0.4 MG/DL (0.2-1.0) Aspartate Amino Transf (AST/SGOT) 114 U/L (15-37) H Alanine Aminotransferase (ALT/SGPT) 186 U/L (12-78) H Alkaline Phosphatase 400 U/L (46-116) H Total Protein 6.9 G/DL (6.4-8.2) Albumin 2.0 G/DL (3.4-5.0) L Globulin 4.9 g/dL Albumin/Globulin Ratio 0.4 (1.0-2.7) L Thyroid Stimulating Hormone (TSH) 2.479 uiU/mL (0.358-3.740) Free Thyroxine 1.22 NG/DL (0.76-1.46) Objective: WDWN NAD trach in place reduced breath sounds without rhonchi or wheeze [id number] without MRG NABS nontender no HSM no CCE contractures feeding tube in place no distention reduced LOC and weak nonfocal cachectic reviewed and edited Accucheck: 89 Malcolm Cruz MD Oct 05, 2019 09:51
--- NOTE | 2019-10-05 09:55 | General Progress Note ---
Assessment/Plan Problem List: (1) Failure to thrive (0-17) ICD Codes: R62.51 - Failure to thrive (0-17) SNOMED: 563691376 (2) Hypertensive kidney disease ICD Codes: I12.9 - Hypertensive chronic kidney disease with stage 1 through stage 4 chronic kidney disease, or unspecified chronic kidney disease SNOMED: 37933821 (3) Pneumonia ICD Codes: J18.9 - Pneumonia, unspecified organism SNOMED: 669503896 Qualifiers: Qualified Codes: J18.9 - Pneumonia, unspecified organism (4) ESRD (end stage renal disease) ICD Codes: N18.6 - End stage renal disease SNOMED: 16957601 (5) Septic arthritis ICD Codes: M00.9 - Pyogenic arthritis, unspecified SNOMED: 220694115 (6) Thrombocytopenia ICD Codes: D69.6 - Thrombocytopenia, unspecified SNOMED: 286108195 (7) Hypotension ICD Codes: I95.9 - Hypotension, unspecified SNOMED: 27023918 Qualifiers: Qualified Codes: I95.3 - Hypotension of hemodialysis (8) Malnutrition ICD Codes: E46 - Unspecified protein-calorie malnutrition SNOMED: 00588082 Status: stable, not improved, unchanged, deteriorating Assessment/Plan: Continue vent support. Wean as able. Will discuss with pulmonary if patient could be weaned to trach collar.Suctioning and pulmonary toilet. Continue G-tube feedings. Monitor residuals thoracentesis Continue current blood pressure regimen with close monitoring of blood pressure. Hemodialysis with ultrafiltration per nephrology. Turn every 2 hours and good skin care. monitor labs/lfts steroids per GI. monitor wbc monitor h/h Discharge planning in progress Subjective ROS Limited/Unobtainable: No Constitutional: Reports: malaise, weakness HEENT: Reports: no symptoms Cardiovascular: Reports: no symptoms Respiratory: Reports: cough, shortness of breath, sputum Gastrointestinal/Abdominal: Reports: difficulty swallowing Genitourinary: Reports: no symptoms Neurologic/Psychiatric: Reports: pre-existing deficit Endocrine: Reports: no symptoms Hematologic/Lymphatic: Reports: anemia Allergies: Coded Allergies: VANCOMYCIN (Unverified Allergy, Unknown, 08/02/19) All Systems: reviewed and negative except above Subjective There were no overnight events. Patient remains stable on the ventilator. She occasionally opens her eyes. Tolerating feedings. LFTS less. wbc up to 28k. ?due to steroids. no fevers. scheduled for thoracentesis no signs of bleeding. Objective Last 24 Hour Vital Signs Date Time Temp Pulse Resp B/P (MAP) Pulse Ox O2 Delivery O2 Flow Rate FiO2 10/05/19 08:25 168/104 10/05/19 08:25 80 168/104 10/05/19 08:24 80 168/104 10/05/19 08:00 98.9 80 18 168/104 (125) 100 10/05/19 08:00 Mechanical Ventilator 10/05/19 07:35 81 19 Mechanical Ventilator 21 10/05/19 04:00 Mechanical Ventilator 10/05/19 04:00 97.5 85 18 162/81 (108) 98 10/05/19 04:00 21 10/05/19 04:00 74 10/05/19 03:00 76 18 100 Mechanical Ventilator 21 80 18 21 10/05/19 00:00 21 10/05/19 00:00 70 10/05/19 00:00 Mechanical Ventilator 10/05/19 00:00 97.7 71 18 160/73 (102) 100 10/04/19 20:40 73 18 100 Mechanical Ventilator 21 69 18 21 10/04/19 20:38 65 154/79 10/04/19 20:00 Mechanical Ventilator 10/04/19 20:00 97.7 65 18 154/79 (104) 100 10/04/19 20:00 21 10/04/19 19:37 69 10/04/19 17:31 66 156/74 10/04/19 16:00 97.8 70 18 157/76 (103) 98 10/04/19 15:53 76 19 100 Mechanical Ventilator 21 74 18 21 10/04/19 15:42 21 10/04/19 15:41 Mechanical Ventilator 10/04/19 15:30 75 10/04/19 12:03 97.0 76 19 155/68 (97) 97 10/04/19 11:53 21 10/04/19 11:52 Mechanical Ventilator 10/04/19 11:46 73 10/04/19 10:49 72 18 100 Mechanical Ventilator 21 70 19 21 Intake and Output 10/04/19 10/05/19 19:00 07:00 Intake Total 535 ml 450 ml Output Total 150 ml 200 ml Balance 385 ml 250 ml Intake Free Water 150 ml 100 ml Tube Feeding 385 ml 350 ml Output Urine Total 150 ml 200 ml # Bowel Movements 2 4 Laboratory Tests 10/05/19 03:00: White Blood Count 21.2#H, Red Blood Count 2.36L, Hemoglobin 7.4L, Hematocrit 20.9L, Mean Corpuscular Volume 88, Mean Corpuscular Hemoglobin 31.2H, Mean Corpuscular Hemoglobin Concent 35.3, Red Cell Distribution Width 15.2H, Platelet Count 204, Mean Platelet Volume 5.4L, Neutrophils (%) (Auto) , Lymphocytes (%) (Auto) , Monocytes (%) (Auto) , Eosinophils (%) (Auto) , Basophils (%) (Auto) , Differential Total Cells Counted 100, Neutrophils % ( Manual) 86H, Lymphocytes % (Manual) 12L, Monocytes % (Manual) 2, Eosinophils % ( Manual) 0, Basophils % (Manual) 0, Band Neutrophils 0, Platelet Estimate Adequate, Platelet Morphology Normal, Prothrombin Time 10.8, Prothromb Time International Ratio 1.0, Activated Partial Thromboplast Time 33, Sodium Level 139, Potassium Level 3.9, Chloride Level 102, Carbon Dioxide Level 21, Anion Gap 16H, Blood Urea Nitrogen 157H, Creatinine 3.9H, Estimat Glomerular Filtration Rate 11.1, Glucose Level 263H, Calcium Level 8.2L, Total Bilirubin 0.4, Aspartate Amino Transf (AST/SGOT) 114H, Alanine Aminotransferase (ALT/SGPT ) 186H, Alkaline Phosphatase 400H, Total Protein 6.9, Albumin 2.0L, Globulin 4.9 , Albumin/Globulin Ratio 0.4L 10/05/19 08:30: White Blood Count 25.8*H, Red Blood Count 2.39L, Hemoglobin 7.4L, Hematocrit 21.2L, Mean Corpuscular Volume 89, Mean Corpuscular Hemoglobin 30.9, Mean Corpuscular Hemoglobin Concent 34.8, Red Cell Distribution Width 15.4H, Platelet Count 191, Mean Platelet Volume 5.2L, Neutrophils (%) (Auto) , Lymphocytes (%) (Auto) , Monocytes (%) (Auto) , Eosinophils (%) (Auto) , Basophils (%) (Auto) , Neutrophils % (Manual) [Pending], Lymphocytes % (Manual) [Pending], Platelet Estimate [Pending], Platelet Morphology [Pending], Thyroid Stimulating Hormone (TSH) 2.479, Free Thyroxine 1.22 Height (Feet): 5 Height (Inches): 4.00 Weight (Pounds): 112 Objective General Appearance: WD/WN, awake. looks around. no distress. thin and frail Neck: supple +trach Cardiovascular: normal rate Respiratory/Chest: rhonchi - bilaterally Abdomen: normal bowel sounds, non tender, soft, no organomegaly Edema: no edema noted Arm (L), no edema noted Arm (R), no edema noted Leg (L), no edema noted Leg (R), no edema noted Pedal (L), no edema noted Pedal (R), no edema noted Generalized Neurologic: disoriented, aphasia Skin: +excoriations Nate Beltran MD Oct 05, 2019 09:55
[2019-10-05] MEDS: azaTHIOprine 50 MG TAB ORAL SCH (10:07)
--- NOTE | 2019-10-05 10:20 | Infectious Diseases Prog Note ---
Assessment/Plan Assessment/Plan antibiotics : none A 1. jarad albicans fungemia s/p rx 2. right shoulder septic arthritis with staph aureus s/p rx 3. pleural effusion 4. thrombocytopenia resolved 7. diabetes mellitus 8. hypertension 9. respiratory failure 9. leucocytosis increased ? secondary to steroids P 1. observe off antibiotics 2. blood culture 3. COVID 19 test 4. d/w Dr Cruz Subjective ROS Limited/Unobtainable: Yes Allergies: Coded Allergies: VANCOMYCIN (Unverified Allergy, Unknown, 08/02/19) Objective Vital Signs Last 24 Hour Vital Signs Date Time Temp Pulse Resp B/P (MAP) Pulse Ox O2 Delivery O2 Flow Rate FiO2 10/05/19 08:25 168/104 10/05/19 08:25 80 168/104 10/05/19 08:24 80 168/104 10/05/19 08:00 98.9 80 18 168/104 (125) 100 10/05/19 08:00 Mechanical Ventilator 10/05/19 08:00 21 10/05/19 07:47 82 10/05/19 07:35 81 19 Mechanical Ventilator 21 10/05/19 04:00 Mechanical Ventilator 10/05/19 04:00 97.5 85 18 162/81 (108) 98 10/05/19 04:00 21 10/05/19 04:00 74 10/05/19 03:00 76 18 100 Mechanical Ventilator 21 80 18 21 10/05/19 00:00 21 10/05/19 00:00 70 10/05/19 00:00 Mechanical Ventilator 10/05/19 00:00 97.7 71 18 160/73 (102) 100 10/04/19 20:40 73 18 100 Mechanical Ventilator 21 69 18 21 10/04/19 20:38 65 154/79 10/04/19 20:00 Mechanical Ventilator 10/04/19 20:00 97.7 65 18 154/79 (104) 100 10/04/19 20:00 21 10/04/19 19:37 69 10/04/19 17:31 66 156/74 10/04/19 16:00 97.8 70 18 157/76 (103) 98 10/04/19 15:53 76 19 100 Mechanical Ventilator 21 74 18 21 10/04/19 15:42 21 10/04/19 15:41 Mechanical Ventilator 10/04/19 15:30 75 4/21/20 12:03 97.0 76 19 155/68 (97) 97 10/04/19 11:53 21 10/04/19 11:52 Mechanical Ventilator 10/04/19 11:46 73 10/04/19 10:49 72 18 100 Mechanical Ventilator 21 70 19 21 Height (Feet): 5 Height (Inches): 4.00 Weight (Pounds): 112 HEENT: status post trach Respiratory/Chest: lungs clear Cardiovascular: normal rate, regular rhythm, no gallop/murmur Abdomen: soft, non tender, other - GT Extremities: no edema, other - right groin catheter Laboratory Tests Test 10/05/19 03:00 10/05/19 08:30 White Blood Count 21.2 K/UL (4.8-10.8) #H 25.8 K/UL (4.8-10.8) *H Red Blood Count 2.36 M/UL (4.20-5.40) L 2.39 M/UL (4.20-5.40) L Hemoglobin 7.4 G/DL (12.0-16.0) L 7.4 G/DL (12.0-16.0) L Hematocrit 20.9 % (37.0-47.0) L 21.2 % (37.0-47.0) L Mean Corpuscular Volume 88 FL (80-99) 89 FL (80-99) Mean Corpuscular Hemoglobin 31.2 PG (27.0-31.0) H 30.9 PG (27.0-31.0) Mean Corpuscular Hemoglobin Concent 35.3 G/DL (32.0-36.0) 34.8 G/DL (32.0-36.0) Red Cell Distribution Width 15.2 % (11.6-14.8) H 15.4 % (11.6-14.8) H Platelet Count 204 K/UL (150-450) 191 K/UL (150-450) Mean Platelet Volume 5.4 FL (6.5-10.1) L 5.2 FL (6.5-10.1) L Neutrophils (%) (Auto) % (45.0-75.0) % (45.0-75.0) Lymphocytes (%) (Auto) % (20.0-45.0) % (20.0-45.0) Monocytes (%) (Auto) % (1.0-10.0) % (1.0-10.0) Eosinophils (%) (Auto) % (0.0-3.0) % (0.0-3.0) Basophils (%) (Auto) % (0.0-2.0) % (0.0-2.0) Differential Total Cells Counted 100 Neutrophils % (Manual) 86 % (45-75) H Pending Lymphocytes % (Manual) 12 % (20-45) L Pending Monocytes % (Manual) 2 % (1-10) Eosinophils % (Manual) 0 % (0-3) Basophils % (Manual) 0 % (0-2) Band Neutrophils 0 % (0-8) Platelet Estimate Adequate Pending Platelet Morphology Normal Pending Prothrombin Time 10.8 SEC (9.30-11.50) Prothromb Time International Ratio 1.0 (0.9-1.1) Activated Partial Thromboplast Time 33 SEC (23-33) Sodium Level 139 MMOL/L (136-145) Potassium Level 3.9 MMOL/L (3.5-5.1) Chloride Level 102 MMOL/L (98-107) Carbon Dioxide Level 21 MMOL/L (21-32) Anion Gap 16 mmol/L (5-15) H Blood Urea Nitrogen 157 mg/dL (7-18) H Creatinine 3.9 MG/DL (0.55-1.30) H Estimat Glomerular Filtration Rate 11.1 mL/min (>60) Glucose Level 263 MG/DL (74-106) H Calcium Level 8.2 MG/DL (8.5-10.1) L Total Bilirubin 0.4 MG/DL (0.2-1.0) Aspartate Amino Transf (AST/SGOT) 114 U/L (15-37) H Alanine Aminotransferase (ALT/SGPT) 186 U/L (12-78) H Alkaline Phosphatase 400 U/L (46-116) H Total Protein 6.9 G/DL (6.4-8.2) Albumin 2.0 G/DL (3.4-5.0) L Globulin 4.9 g/dL Albumin/Globulin Ratio 0.4 (1.0-2.7) L Thyroid Stimulating Hormone (TSH) 2.479 uiU/mL (0.358-3.740) Free Thyroxine 1.22 NG/DL (0.76-1.46) Current Medications Medications (Trade) Dose Ordered Sig/Javier Route PRN Reason Start Time Stop Time Status Last Admin Dose Admin Acetylcysteine (Mucomyst) 100 mg Q4HRT N 08/31/19 19:00 11/29/19 18:59 10/05/19 07:35 Albuterol/ Ipratropium (Albuterol/ Ipratropium) 3 ml Q4HRT N 09/22/19 15:00 12/09/19 14:59 10/05/19 07:35 Amlodipine Besylate (Norvasc) 5 mg BID ORAL 09/25/19 09:00 10/25/19 08:59 10/05/19 08:24 Azathioprine (Imuran) 50 mg DAILY ORAL 10/05/19 09:00 01/03/20 08:59 10/05/19 10:07 Chlorhexidine Gluconate (Nae-Hex 2%) 1 applic DAILY@1999 TOPIC 09/17/19 20:00 12/16/19 19:59 10/04/19 20:37 Clonidine HCl (Catapres Tab) 0.1 mg Q4H PRN ORAL For High Blood Pressure 09/22/19 21:00 12/21/19 20:59 10/04/19 00:38 Dextrose (Dextrose 50%) 25 ml Q30M PRN IV Hypoglycemia 09/02/19 06:15 12/01/19 06:14 09/04/19 12:11 Dextrose (Dextrose 50%) 50 ml Q30M PRN IV Hypoglycemia 09/02/19 06:15 12/01/19 06:14 Epoetin Thomas (Epoetin Thomas-EPBX(NON ESRD)) 4,000 unit THU-THU-THU SUBQ 10/05/19 21:00 01/03/20 20:59 Lansoprazole (Prevacid) 30 mg DAILY GT 09/27/19 09:00 10/27/19 08:59 10/05/19 08:24 Levothyroxine Sodium (Synthroid) 125 mcg DAILY@0630 ORAL 09/22/19 06:30 10/22/19 06:29 10/05/19 06:00 Losartan Potassium (Cozaar) 50 mg DAILY GT 10/03/19 09:00 11/02/19 08:59 10/05/19 08:25 Metoprolol Tartrate (Lopressor) 25 mg Q12HR ORAL 10/01/19 09:00 12/30/19 08:59 10/05/19 08:25 Prednisone (predniSONE) 30 mg DAILY ORAL 10/03/19 09:00 11/02/19 08:59 10/05/19 08:24 Psyllium Hydrophilic Mucilloid (Metamucil) 1 pkt DAILY ORAL 09/22/19 15:00 10/22/19 14:59 10/05/19 08:32 Sevelamer Carbonate (Renvela) 800 mg Q8HR NG 09/25/19 14:00 12/24/19 13:59 10/05/19 06:00 Melissa Solares MD Oct 05, 2019 10:20
--- NOTE | 2019-10-05 12:11 | Surgery Progress Note ---
Surgery Progress Note Subjective Procedure Performed 1. tracheostomy 2 removal of left tube thoracostomy Symptoms: improved Objective Last 24 Hour Vital Signs Date Time Temp Pulse Resp B/P (MAP) Pulse Ox O2 Delivery O2 Flow Rate FiO2 10/05/19 11:35 78 10/05/19 10:55 77 18 Mechanical Ventilator 21 10/05/19 08:25 168/104 10/05/19 08:25 80 168/104 10/05/19 08:24 80 168/104 10/05/19 08:00 98.9 80 18 168/104 (125) 100 10/05/19 08:00 Mechanical Ventilator 10/05/19 08:00 21 10/05/19 07:47 82 10/05/19 07:35 81 19 95 Mechanical Ventilator 21 79 18 10/05/19 04:00 Mechanical Ventilator 10/05/19 04:00 97.5 85 18 162/81 (108) 98 10/05/19 04:00 21 10/05/19 04:00 74 10/05/19 03:00 76 18 100 Mechanical Ventilator 21 80 18 21 10/05/19 00:00 21 10/05/19 00:00 70 10/05/19 00:00 Mechanical Ventilator 10/05/19 00:00 97.7 71 18 160/73 (102) 100 10/04/19 20:40 73 18 100 Mechanical Ventilator 21 69 18 21 10/04/19 20:38 65 154/79 10/04/19 20:00 Mechanical Ventilator 10/04/19 20:00 97.7 65 18 154/79 (104) 100 10/04/19 20:00 21 10/04/19 19:37 69 10/04/19 17:31 66 156/74 10/04/19 16:00 97.8 70 18 157/76 (103) 98 10/04/19 15:53 76 19 100 Mechanical Ventilator 21 74 18 21 10/04/19 15:42 21 10/04/19 15:41 Mechanical Ventilator 10/04/19 15:30 75 I&O Intake and Output 10/04/19 10/05/19 19:00 07:00 Intake Total 535 ml 450 ml Output Total 150 ml 200 ml Balance 385 ml 250 ml Intake Free Water 150 ml 100 ml Tube Feeding 385 ml 350 ml Output Urine Total 150 ml 200 ml # Bowel Movements 2 4 Dressing: dry Wound: clean Cardiovascular: RSR Respiratory: clear, decreased breath sounds Abdomen: soft, non-tender, present bowel sounds Extremities: no edema, no tenderness, no cyanosis Laboratory Tests Test 10/05/19 03:00 10/05/19 08:30 White Blood Count 21.2 K/UL (4.8-10.8) #H 25.8 K/UL (4.8-10.8) *H Red Blood Count 2.36 M/UL (4.20-5.40) L 2.39 M/UL (4.20-5.40) L Hemoglobin 7.4 G/DL (12.0-16.0) L 7.4 G/DL (12.0-16.0) L Hematocrit 20.9 % (37.0-47.0) L 21.2 % (37.0-47.0) L Mean Corpuscular Volume 88 FL (80-99) 89 FL (80-99) Mean Corpuscular Hemoglobin 31.2 PG (27.0-31.0) H 30.9 PG (27.0-31.0) Mean Corpuscular Hemoglobin Concent 35.3 G/DL (32.0-36.0) 34.8 G/DL (32.0-36.0) Red Cell Distribution Width 15.2 % (11.6-14.8) H 15.4 % (11.6-14.8) H Platelet Count 204 K/UL (150-450) 191 K/UL (150-450) Mean Platelet Volume 5.4 FL (6.5-10.1) L 5.2 FL (6.5-10.1) L Neutrophils (%) (Auto) % (45.0-75.0) % (45.0-75.0) Lymphocytes (%) (Auto) % (20.0-45.0) % (20.0-45.0) Monocytes (%) (Auto) % (1.0-10.0) % (1.0-10.0) Eosinophils (%) (Auto) % (0.0-3.0) % (0.0-3.0) Basophils (%) (Auto) % (0.0-2.0) % (0.0-2.0) Differential Total Cells Counted 100 100 Neutrophils % (Manual) 86 % (45-75) H 91 % (45-75) H Lymphocytes % (Manual) 12 % (20-45) L 6 % (20-45) L Monocytes % (Manual) 2 % (1-10) 2 % (1-10) Eosinophils % (Manual) 0 % (0-3) 1 % (0-3) Basophils % (Manual) 0 % (0-2) 0 % (0-2) Band Neutrophils 0 % (0-8) 0 % (0-8) Platelet Estimate Adequate Adequate Platelet Morphology Normal Normal Prothrombin Time 10.8 SEC (9.30-11.50) Prothromb Time International Ratio 1.0 (0.9-1.1) Activated Partial Thromboplast Time 33 SEC (23-33) Sodium Level 139 MMOL/L (136-145) Potassium Level 3.9 MMOL/L (3.5-5.1) Chloride Level 102 MMOL/L (98-107) Carbon Dioxide Level 21 MMOL/L (21-32) Anion Gap 16 mmol/L (5-15) H Blood Urea Nitrogen 157 mg/dL (7-18) H Creatinine 3.9 MG/DL (0.55-1.30) H Estimat Glomerular Filtration Rate 11.1 mL/min (>60) Glucose Level 263 MG/DL (74-106) H Calcium Level 8.2 MG/DL (8.5-10.1) L Total Bilirubin 0.4 MG/DL (0.2-1.0) Aspartate Amino Transf (AST/SGOT) 114 U/L (15-37) H Alanine Aminotransferase (ALT/SGPT) 186 U/L (12-78) H Alkaline Phosphatase 400 U/L (46-116) H Total Protein 6.9 G/DL (6.4-8.2) Albumin 2.0 G/DL (3.4-5.0) L Globulin 4.9 g/dL Albumin/Globulin Ratio 0.4 (1.0-2.7) L Thyroid Stimulating Hormone (TSH) 2.479 uiU/mL (0.358-3.740) Free Thyroxine 1.22 NG/DL (0.76-1.46) Assessment Post-op Diagnosis same Plan Problems: (1) Malnutrition Assessment & Plan: DAILY ESTIMATED NEEDS: Needs based on ESRD+ HD, underweight, wound/ 39.5kg 35-40 kcals/kg 5652-6952 total kcals 1.25-1.8 g protein/kg 49-71 g total protein 20-22 mL/kg 790-869 total fluid mLs NUTRITION DIAGNOSIS: * Increased kcal and protein needs r/t underweight status, HD needs, wuond healing as evidenced by pt is underweight per guidelines, ESRD, on HD, admitted non-blanching erythema wounds @ BL heels and sacrum * Swallowing difficulty R/T dysphagia as evidenced by CHANGE MANAGEMENT LEAD recommends temporary nonoral feeding at this time, s/p NGT insertion, on NGT feeding-> now s/p self removal, NPO. CURRENT TF:NPO PO DIET RECOMMENDATIONS: WHEN SAFE FOR ORAL DIET -> renal/ texture per CHANGE MANAGEMENT LEAD ENTERAL NUTRITION RECOMMENDATIONS: W/ GI access: Nepro @ 35ml/hr x 22 hrs to provide 770ml, 1386kcal, 62g prot, 560ml free water * W/ GI access, resume TF on Nepro * Initiate Nepro @ 15ml/hr x 6 hrs, advance 10ml q 4-6 hrs as tolerated to goal rate. * Hold 1 hour before and after Synthroid med * HOB over 30 degrees/ water flush per MD. ADDITIONAL RECOMMENDATIONS: 1) Calibrated bed scale wt for accurate CBW -> daily wt monitoring Per HD record: dry wt on 07/30=39.5kg (87lbs) 2) Wound care: (W/ GI access) add Nephorivte x 1 + Balta BID 3) Monitor NPO status: without GI access at this time, s/p pulling out NGT 4) Monitor for hypoglycemia while NPO 5) Monitor for continuity of HD (2) Septic arthritis Assessment & Plan: Pt presented on admission with generalized scaly rash . pt noted to be restless and scratching at skin. Bleeding from oral mucosa noted. Joint deformity noted to R shoulder. Surgical incision approximated with 11 sutures. Erythema but no exudate,or elevation in skin temp at site of incision. Historical incision R hip that is tunneled.Small amt seropurulent exudate noted. Periwound is erythematous,but no elevation in skin temp noted. No odor noted. Non-blanching erythema noted to sacrum. Perianal area is erythematous and excoriated. L heel is boggy with non-blanching erythema. R heel is soft with non-blanching erythema. No evidence of skin breakdown to all other bony prominences. Tx.plan: Cover R shoulder with Drsg and change daily and prn. Cleanse R hip wound with Saline. Apply Therahoney.Apply Cavilon Skin Barrier periwound. Cover with Optifoam drsg. Change every 3 days and prn. Apply Moisture Barrier Paste to perianal area and buttocks. Cover Sacrum with Optifoam drsg. Change every 3 days and prn. Apply Cavilon Skin Barrier to both heels. Cover each heel with Optifoam drsg. Change every 7 days and prn. APM/ELVIA Mattress overlay. Reposition at least every 2hours or as tolerated. Off-load heels with pillow. HD cath necessary HD as renal likely will need intubation 19 x 11 x 11 mm hypoechoic area in the liver adjacent to the gallbladder fossa. Although location is typical for area of focal sparing in a fatty liver, there are no findings to indicate fatty liver and this is a new finding since fairly recent previous exam. Therefore the possibility of a process such as small abscess should be considered. Atrophic echogenic kidneys Negative for gallstones or dilated bile ducts (3) Wound, open, hip or thigh with complication Assessment & Plan: slow healing will need nutritional optimization difficult ng tube peg when stable sutures removed from right shoulder comfortable wean vent may need trach (4) Abscess of right hip (5) possible septic arthritis (6) Renal failure (ARF), acute on chronic Assessment & Plan: cont HD will need tunneled cath placement okay to use fem line for now but will need change soon. line monitored and clean dressings going well (7) Pneumonia Assessment & Plan: intubated on vent support not tolerating weaning may need trach hemothorax likely after thoracentesis Chest CT noted Left chest tube placed With plan for trach chest tube can be considered but overall prognosis is very poor s/p trach left chest tub eout cxr noted and okay downgrade left pleural effusion dressings saturated will need to monitor. may need another chest tube as may not heal well on left side Anasarca, with as mentioned above diffuse edema of the soft tissues, trace ascites, and bilateral pleural effusions No hepatic abnormality to correlate with suspected small pericholecystic lesion in the liver described on recent sonogram. The lesion may be occult on noncontrast CT, may have been artifactual or may have resolved in the interim. Consider repeat sonography in a few days to assess progression No definite acute abdominal process otherwise Improved but still sizable left pleural effusion with minimal residual hemoperitoneum since prior CT scan of 09/01/2019. There is near complete atelectasis of the left lower lobe. There is a small right pleural effusion with atelectatic changes of the right lower lobe and right perihilar dense consolidation. These appear improved since a prior CT of 09/01/2019 Increased crazy paving type opacity within the right middle lobe since previous August [address], may reflect an area of increasing infiltrate, versus focal edema. There is also some dense consolidation of the perihilar right lower lobe which is improved since the previous August 31 CT Right groin temporary dialysis catheter in good position Atrophic kidneys, consistent with known history of chronic renal disease L2 compression fracture deformity, and advanced degenerative changes of the L2- L3 disc. Similar to prior study Marroquin catheter hold on repeat chest tube (8) Liver enzyme elevation Assessment & Plan: likely shock liver improving trend Camilo James Oct 05, 2019 12:11
--- NOTE | 2019-10-05 12:51 | Nephrology Progress Note ---
Assessment/Plan Problem List: (1) Liver enzyme elevation Assessment: Acute (2) ESRD (end stage renal disease) on dialysis (3) Malnutrition (4) Anemia in CKD (chronic kidney disease) (5) Hypotension (6) Thrombocytopenia (7) Sepsis Assessment: klebsiella in blood Assessment -Early sepsis with shock. -Healthcare-associated pneumonia. -Severe protein-calorie malnutrition. -Thrombocytopenia. - End-stage renal disease. - History of hypertension. - Bradycardia. - HypoThyroid Plan Discussed with Dr. Beltran hemodialysis done October 02 Patient white blood cell counts mario, unclear if it is due to steroids or an underlying infectious process Will order blood culture x2 and a chest x-ray Will check labs tomorrow Started on steroid for high LFT and high smooth muscle antibody Today's labs reviewed Smooth muscle antibody positive, Ig G elevated Liver enzymes elevated but declining Tracheostomy September 07 Last dialysis September 26, next dialysis today October 02 Chest tube on the left side was put in on September 01 was discontinued September 07 Patient transfused 3 units of packed RBCs for low hemoglobin Remains full code Blood pressure fluctuating, will start hydralazine via NG tube for blood pressure Magnesium and potassium supplement intravenously as needed Patient underwent PEG placement August 16 patient remains intubated on ventilator Discussed with RN Aim to wean from ventilator or consider tracheostomy Permacath was removed on August 12 Dialysis 08/11 Transfusion as needed Patient had hematemesis meds IV as possible Surveillance blood cultures tomorrow Plan to put the permacath back in on Thursday if cultures are negative keep BP and BS in check Inflammatory markers per orders Subjective ROS Limited/Unobtainable: Yes Objective Objective Last 24 Hour Vital Signs Date Time Temp Pulse Resp B/P (MAP) Pulse Ox O2 Delivery O2 Flow Rate FiO2 10/05/19 12:26 Mechanical Ventilator 10/05/19 12:00 21 10/05/19 12:00 98.7 81 17 156/82 (106) 99 10/05/19 11:35 78 10/05/19 10:55 77 18 Mechanical Ventilator 21 10/05/19 08:25 168/104 10/05/19 08:25 80 168/104 10/05/19 08:24 80 168/104 10/05/19 08:00 98.9 80 18 168/104 (125) 100 10/05/19 08:00 Mechanical Ventilator 10/05/19 08:00 21 10/05/19 07:47 82 10/05/19 07:35 81 19 95 Mechanical Ventilator 21 79 18 10/05/19 04:00 Mechanical Ventilator 10/05/19 04:00 97.5 85 18 162/81 (108) 98 10/05/19 04:00 21 10/05/19 04:00 74 10/05/19 03:00 76 18 100 Mechanical Ventilator 21 80 18 21 10/05/19 00:00 21 10/05/19 00:00 70 10/05/19 00:00 Mechanical Ventilator 10/05/19 00:00 97.7 71 18 160/73 (102) 100 10/04/19 20:40 73 18 100 Mechanical Ventilator 21 69 18 21 10/04/19 20:38 65 154/79 10/04/19 20:00 Mechanical Ventilator 10/04/19 20:00 97.7 65 18 154/79 (104) 100 10/04/19 20:00 21 10/04/19 19:37 69 10/04/19 17:31 66 156/74 10/04/19 16:00 97.8 70 18 157/76 (103) 98 10/04/19 15:53 76 19 100 Mechanical Ventilator 21 74 18 21 10/04/19 15:42 21 10/04/19 15:41 Mechanical Ventilator 10/04/19 15:30 75 Intake and Output 10/04/19 10/05/19 19:00 07:00 Intake Total 535 ml 450 ml Output Total 150 ml 200 ml Balance 385 ml 250 ml Intake Free Water 150 ml 100 ml Tube Feeding 385 ml 350 ml Output Urine Total 150 ml 200 ml # Bowel Movements 2 4 Laboratory Tests 10/05/19 03:00: White Blood Count 21.2#H, Red Blood Count 2.36L, Hemoglobin 7.4L, Hematocrit 20.9L, Mean Corpuscular Volume 88, Mean Corpuscular Hemoglobin 31.2H, Mean Corpuscular Hemoglobin Concent 35.3, Red Cell Distribution Width 15.2H, Platelet Count 204, Mean Platelet Volume 5.4L, Neutrophils (%) (Auto) , Lymphocytes (%) (Auto) , Monocytes (%) (Auto) , Eosinophils (%) (Auto) , Basophils (%) (Auto) , Differential Total Cells Counted 100, Neutrophils % ( Manual) 86H, Lymphocytes % (Manual) 12L, Monocytes % (Manual) 2, Eosinophils % ( Manual) 0, Basophils % (Manual) 0, Band Neutrophils 0, Platelet Estimate Adequate, Platelet Morphology Normal, Prothrombin Time 10.8, Prothromb Time International Ratio 1.0, Activated Partial Thromboplast Time 33, Sodium Level 139, Potassium Level 3.9, Chloride Level 102, Carbon Dioxide Level 21, Anion Gap 16H, Blood Urea Nitrogen 157H, Creatinine 3.9H, Estimat Glomerular Filtration Rate 11.1, Glucose Level 263H, Calcium Level 8.2L, Total Bilirubin 0.4, Aspartate Amino Transf (AST/SGOT) 114H, Alanine Aminotransferase (ALT/SGPT ) 186H, Alkaline Phosphatase 400H, Total Protein 6.9, Albumin 2.0L, Globulin 4.9 , Albumin/Globulin Ratio 0.4L 10/05/19 08:30: White Blood Count 25.8*H, Red Blood Count 2.39L, Hemoglobin 7.4L, Hematocrit 21.2L, Mean Corpuscular Volume 89, Mean Corpuscular Hemoglobin 30.9, Mean Corpuscular Hemoglobin Concent 34.8, Red Cell Distribution Width 15.4H, Platelet Count 191, Mean Platelet Volume 5.2L, Neutrophils (%) (Auto) , Lymphocytes (%) (Auto) , Monocytes (%) (Auto) , Eosinophils (%) (Auto) , Basophils (%) (Auto) , Differential Total Cells Counted 100, Neutrophils % ( Manual) 91H, Lymphocytes % (Manual) 6L, Monocytes % (Manual) 2, Eosinophils % ( Manual) 1, Basophils % (Manual) 0, Band Neutrophils 0, Platelet Estimate Adequate, Platelet Morphology Normal, Thyroid Stimulating Hormone (TSH) 2.479, Free Thyroxine 1.22 Height (Feet): 5 Height (Inches): 4.00 Weight (Pounds): 112 General Appearance: no apparent distress, lethargic EENT: other - Trach and vent Cardiovascular: normal rate Respiratory/Chest: decreased breath sounds Abdomen: soft, other - GT in place Objective no change William Blackwood MD Oct 05, 2019 12:51
--- NOTE | 2019-10-05 15:44 | Diagnostic Imaging Report ---
Indication: Cough Technique: One view of the chest Comparison: 09/21/2019 Findings: Small left pleural effusion is again demonstrated. There is a lobulated pleural opacity in the left upper hemithorax which could represent a small area of loculated pleural fluid. Hazy opacity throughout the left hemithorax could represent layered pleural fluid but could also represent hazy infiltrate. There is increasing right perihilar infiltrate. The heart size is normal. The right pleural space is clear. Tracheostomy remains Impression: Right perihilar infiltrate, new since prior study of 09/21/2019 Stable small left pleural effusion and hazy parenchymal opacity Possible small loculated pleural effusion in the left upper hemithorax
[2019-10-05] MEDS: Dyna-Hex 2% Top Sol 2oz TOPIC SCH (20:08)
[2019-10-05] MEDS: Epoetin Alfa-EPBX (NON ESRD)4000 units/ml vial SUBQ SCH (20:38)
[2019-10-06] VITALS: BP 197/82
[2019-10-06 04:00] VITALS: BP 159/86
--- NOTE | 2019-10-06 04:44 | Progress Note ---
DATE: 10/05/2019 CARDIOLOGY PROGRESS NOTE SUBJECTIVE: The patient remains on ventilator support. No distress. Tolerating feedings. Thin secretions. 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 PHYSICAL EXAMINATION: VITAL SIGNS: Blood pressure quite labile today up to 168/104, heart rate 80, respiratory rate 18, and afebrile. LUNGS: Thin secretions. Trach clear. CARDIAC: Regular rhythm and rate. Normal S1, S2. ABDOMEN: Soft. EXTREMITIES: Trace edema. LABORATORY AND DIAGNOSTIC DATA: White count up to 25, hemoglobin 7.4. Potassium 3.9. Liver function studies have decreased to 114 and 186 respectively with alkaline phosphatase of 400. TSH is 2.4. Chest x-ray with right perihilar infiltrate and small effusion. IMPRESSION: 1. Leukocytosis, probably due to steroids. 2. Improved liver function studies. 3. End-stage renal disease. 4. Respiratory failure, status post trach. 5. Sinus node disease. 6. Hypertensive heart disease with significant increase in blood pressure parameters. 7. Acute on chronic diastolic congestive heart failure. 8. Healthcare-associated pneumonia. PLAN: Culture of sputum. Antibiotics adjustment. Continue reassess steroid dosing. Hemodialysis with additional ultrafiltration for volume management. Antihypertensive therapy advance. Abel Stubbs M.D. DR: BOOM JOB#: [id number] CC:
[2019-10-06 05:12] LABS: BASOPHILS % (AUTO) 0.4 % (0.0-2.0); EOSINOPHILS % (AUTO) 0.8 % (0.0-3.0); HEMATOCRIT 25.9 % (37.0-47.0); HEMOGLOBIN 9.2 G/DL (12.0-16.0); LYMPHOCYTES % (AUTO) 18.8 % (20.0-45.0); MEAN CORPUSCULAR VOLUME 88 FL (80-99); MONOCYTES % (AUTO) 2.3 % (1.0-10.0); NEUTROPHILS % (AUTO) 77.8 % (45.0-75.0); PLATELET COUNT 164 K/UL (150-450); RED BLOOD COUNT 2.96 M/UL (4.20-5.40); RED CELL DISTRIBUTION WIDTH 14.3 % (11.6-14.8); WHITE BLOOD COUNT 15.7 K/UL (4.8-10.8)
[2019-10-06 05:30] LABS: % IRON SATURATION 81 % (15-50); IRON 89 ug/dL (50-175); TOTAL IRON BINDING CAPACITY 110 ug/dL (250-450)
[2019-10-06 05:31] LABS: ALANINE AMINOTRANSFERASE 162 U/L (12-78); ALBUMIN 1.9 G/DL (3.4-5.0); ALBUMIN/GLOBULIN RATIO 0.4 (1.0-2.7); ALKALINE PHOSPHATASE 337 U/L (46-116); ANION GAP 13 mmol/L (5-15); ASPARTATE AMINO TRANSFERASE 152 U/L (15-37); BILIRUBIN,TOTAL 0.5 MG/DL (0.2-1.0); BLOOD UREA NITROGEN 170 mg/dL (7-18); CALCIUM 8.7 MG/DL (8.5-10.1); CARBON DIOXIDE 22 MMOL/L (21-32); CHLORIDE 100 MMOL/L (98-107); POTASSIUM 4.1 MMOL/L (3.5-5.1); SODIUM 135 MMOL/L (136-145)
[2019-10-06 05:44] LABS: FERRITIN 860 NG/ML (8-388); LACTATE DEHYDROGENASE 430 U/L (81-234); PHOSPHORUS 4.2 MG/DL (2.5-4.9)
[2019-10-06] MEDS: Renvela 800mg Pkt NG SCH ×3 (06:19→22:32)
[2019-10-06] MEDS: Piperacillin/Tazobactam 2.25 GM in D5W 55 ML IVPB SCH ×3 (06:19→22:32)
[2019-10-06] MEDS: Levothyroxine 125mcg tab ORAL SCH (06:20)
[2019-10-06 08:00] VITALS: BP 178/90
--- NOTE | 2019-10-06 08:51 | Critical Care Progress Note ---
Assessment/Plan Assessment/Plan respiratory failure hypoxemia chronic renal failure toxic met encephalopathy severe protein calorie malnutrition cachexia left lung whiteout/collapse, anemia pulmonary edema + pleural effusion anasarca s/p CT placement and removal s/p trach hypernatremia leukocytosis ulcerative esophagitis PLAN trach care as is repeat CXR noted off antibiotics wbc improved care noted and reviewed monitor for fluid retention reviewed care and continue to monitor weaning unable renal follow up and dialysis prognosis poor overall for change keep negative close follow up discussed elevated head and monitor ROM watch fluid status and keep negative nutrition and monitor residuals doubt any significant improvement off load as able and monitor skin exam ROM as able and monitor contractures prognosis poor for recovery will need LTAC impression, plan, and exam edited and reviewed in detail care discussed with museum director - Subjective Interval Events: on vent imaging noted ROS Limited/Unobtainable: Yes Condition: unchanged EKG Rhythm: Sinus Rhythm Residuals: minimal Tube Feeding Tolerated: yes I&O: Intake and Output 10/05/19 10/06/19 19:00 07:00 Intake Total 590 ml 505 ml Output Total 400 ml 400 ml Balance 190 ml 105 ml Intake Free Water 100 ml IV Total 55 ml Tube Feeding 280 ml 350 ml Blood Product 250 ml Other 60 ml Output Urine Total 400 ml 400 ml # Bowel Movements 2 Critical Care - Objective CXR: Small left pleural effusion is again demonstrated. There is a lobulated pleural opacity in the left upper hemithorax which could represent a small area of loculated pleural fluid. Hazy opacity throughout the left hemithorax could represent layered pleural fluid but could also represent hazy infiltrate. There is increasing right perihilar infiltrate. The heart size is normal. The right pleural space is clear. Tracheostomy remains ET-Tube: 7.0 ET Position: 19 Last 24 Hour Vital Signs Date Time Temp Pulse Resp B/P (MAP) Pulse Ox O2 Delivery O2 Flow Rate FiO2 10/06/19 08:13 63 18 21 10/06/19 04:00 66 10/06/19 04:00 Mechanical Ventilator 10/06/19 04:00 97.4 64 18 159/86 (110) 99 10/06/19 04:00 21 10/06/19 03:29 59 18 21 10/06/19 01:58 197/82 10/06/19 00:00 57 10/06/19 00:00 Mechanical Ventilator 4/23/20 00:00 97.6 63 20 197/82 (120) 99 10/06/19 00:00 21 10/05/19 23:30 66 20 21 10/05/19 20:51 202/98 10/05/19 20:09 70 159/90 10/05/19 20:00 Mechanical Ventilator 10/05/19 20:00 97.1 74 18 158/80 (106) 100 10/05/19 20:00 21 10/05/19 19:30 56 18 21 10/05/19 19:10 71 10/05/19 18:40 98.0 70 19 158/59 (92) 99 10/05/19 16:01 98.2 74 19 164/66 (98) 99 10/05/19 16:00 21 10/05/19 16:00 Mechanical Ventilator 10/05/19 15:24 80 10/05/19 15:00 72 18 21 10/05/19 12:26 Mechanical Ventilator 10/05/19 12:00 21 10/05/19 12:00 98.7 81 17 156/82 (106) 99 10/05/19 11:35 78 10/05/19 10:55 77 18 Mechanical Ventilator 21 Objective: WDWN NAD trach in place reduced breath sounds without rhonchi or wheeze [id number] without MRG NABS nontender no HSM no CCE contractures feeding tube in place no distention reduced LOC and weak nonfocal cachectic reviewed and edited Accucheck: 89 Malcolm Cruz MD Oct 06, 2019 08:51
--- NOTE | 2019-10-06 08:58 | General Progress Note ---
Assessment/Plan Problem List: (1) Failure to thrive (0-17) ICD Codes: R62.51 - Failure to thrive (0-17) SNOMED: 725105172 (2) Hypertensive kidney disease ICD Codes: I12.9 - Hypertensive chronic kidney disease with stage 1 through stage 4 chronic kidney disease, or unspecified chronic kidney disease SNOMED: 62023617 (3) Pneumonia ICD Codes: J18.9 - Pneumonia, unspecified organism SNOMED: 588744801 Qualifiers: Qualified Codes: J18.9 - Pneumonia, unspecified organism (4) ESRD (end stage renal disease) ICD Codes: N18.6 - End stage renal disease SNOMED: 78659062 (5) Septic arthritis ICD Codes: M00.9 - Pyogenic arthritis, unspecified SNOMED: 053988011 (6) Thrombocytopenia ICD Codes: D69.6 - Thrombocytopenia, unspecified SNOMED: 826031593 (7) Hypotension ICD Codes: I95.9 - Hypotension, unspecified SNOMED: 37793714 Qualifiers: Qualified Codes: I95.3 - Hypotension of hemodialysis (8) Malnutrition ICD Codes: E46 - Unspecified protein-calorie malnutrition SNOMED: 99478882 Status: stable, not improved, unchanged, deteriorating Assessment/Plan: Continue vent support. Wean as able. Suctioning and pulmonary toilet. Continue G-tube feedings. Monitor residuals Continue current blood pressure regimen with close monitoring of blood pressure. Hemodialysis with ultrafiltration per nephrology. Turn every 2 hours and good skin care. monitor labs/lfts steroids per GI. monitor wbc monitor h/h d.w . repeat cultures. needs perm cath if cleared by ID. Discharge planning in progress Subjective ROS Limited/Unobtainable: Yes Constitutional: Reports: malaise, weakness HEENT: Reports: no symptoms Cardiovascular: Reports: no symptoms Respiratory: Reports: cough, shortness of breath, sputum Gastrointestinal/Abdominal: Reports: difficulty swallowing Genitourinary: Reports: no symptoms Neurologic/Psychiatric: Reports: anxiety, emotional problems, pre-existing deficit Endocrine: Reports: no symptoms Hematologic/Lymphatic: Reports: anemia Allergies: Coded Allergies: VANCOMYCIN (Unverified Allergy, Unknown, 08/02/19) All Systems: reviewed and negative except above Subjective There were no overnight events. Patient remains stable on the ventilator. She occasionally opens her eyes. Tolerating feedings. LFTS less. wbc down.. ?due to steroids. no fevers. no signs of bleeding. Objective Last 24 Hour Vital Signs Date Time Temp Pulse Resp B/P (MAP) Pulse Ox O2 Delivery O2 Flow Rate FiO2 10/06/19 08:13 63 18 21 10/06/19 04:00 66 10/06/19 04:00 Mechanical Ventilator 10/06/19 04:00 97.4 64 18 159/86 (110) 99 10/06/19 04:00 21 10/06/19 03:29 59 18 21 10/06/19 01:58 197/82 10/06/19 00:00 57 10/06/19 00:00 Mechanical Ventilator 10/06/19 00:00 97.6 63 20 197/82 (120) 99 10/06/19 00:00 21 10/05/19 23:30 66 20 21 10/05/19 20:51 202/98 10/05/19 20:09 70 159/90 10/05/19 20:00 Mechanical Ventilator 10/05/19 20:00 97.1 74 18 158/80 (106) 100 10/05/19 20:00 21 10/05/19 19:30 56 18 21 10/05/19 19:10 71 10/05/19 18:40 98.0 70 19 158/59 (92) 99 10/05/19 16:01 98.2 74 19 164/66 (98) 99 10/05/19 16:00 21 10/05/19 16:00 Mechanical Ventilator 10/05/19 15:24 80 10/05/19 15:00 72 18 21 10/05/19 12:26 Mechanical Ventilator 10/05/19 12:00 21 10/05/19 12:00 98.7 81 17 156/82 (106) 99 10/05/19 11:35 78 10/05/19 10:55 77 18 Mechanical Ventilator 21 Intake and Output 10/05/19 10/06/19 19:00 07:00 Intake Total 590 ml 505 ml Output Total 400 ml 400 ml Balance 190 ml 105 ml Intake Free Water 100 ml IV Total 55 ml Tube Feeding 280 ml 350 ml Blood Product 250 ml Other 60 ml Output Urine Total 400 ml 400 ml # Bowel Movements 2 Laboratory Tests 10/06/19 03:10: White Blood Count 15.7H, Red Blood Count 2.96L, Hemoglobin 9.2L, Hematocrit 25.9L, Mean Corpuscular Volume 88, Mean Corpuscular Hemoglobin 31.2H, Mean Corpuscular Hemoglobin Concent 35.7, Red Cell Distribution Width 14.3, Platelet Count 164, Mean Platelet Volume 5.1L, Neutrophils (%) (Auto) 77.8H, Lymphocytes (%) (Auto) 18.8L, Monocytes (%) (Auto) 2.3, Eosinophils (%) (Auto) 0.8, Basophils (%) (Auto) 0.4, Sodium Level 135L, Potassium Level 4.1, Chloride Level 100, Carbon Dioxide Level 22, Anion Gap 13, Blood Urea Nitrogen 170H, Creatinine 4.0H, Estimat Glomerular Filtration Rate 10.8, Glucose Level 117#H, Calcium Level 8.7, Phosphorus Level 4.2, Magnesium Level 2.6H, Iron Level 89, Total Iron Binding Capacity 110L, Percent Iron Saturation 81H, Unsaturated Iron Binding 21L, Ferritin 860H, Total Bilirubin 0.5, Aspartate Amino Transf (AST/ SGOT) 152H, Alanine Aminotransferase (ALT/SGPT) 162H, Alkaline Phosphatase 337H , Lactate Dehydrogenase 430H, C-Reactive Protein, Quantitative 14.8H, Pro-B- Type Natriuretic Peptide > 80124W, Total Protein 6.5, Albumin 1.9L, Globulin 4.6 , Albumin/Globulin Ratio 0.4L, Vitamin B12 Level 1282H, Folate 18.5 Height (Feet): 5 Height (Inches): 4.00 Weight (Pounds): 112 Objective General Appearance: WD/WN, awake. looks around. no distress. thin and frail Neck: supple +trach Cardiovascular: normal rate Respiratory/Chest: rhonchi - bilaterally Abdomen: normal bowel sounds, non tender, soft, no organomegaly Edema: no edema noted Arm (L), no edema noted Arm (R), no edema noted Leg (L), no edema noted Leg (R), no edema noted Pedal (L), no edema noted Pedal (R), no edema noted Generalized Neurologic: disoriented, aphasia Skin: +excoriations Nate Beltran MD Oct 06, 2019 08:58
[2019-10-06] MEDS: Losartan 50mg tab GT SCH (09:04)
[2019-10-06] MEDS: azaTHIOprine 50 MG TAB ORAL SCH (09:04)
[2019-10-06] MEDS: Metamucil Pkt ORAL SCH (09:05)
--- NOTE | 2019-10-06 10:46 | Infectious Diseases Prog Note ---
Assessment/Plan Assessment/Plan A; 1. Hailee sepsis treated 2. Klebsiella sepsis , treated 3. Right shoulder septic arthritis, status post surgery. 4. Diabetes. 5. Hypertension. 6. Anemia 7. Thrombocytopenia resolved 9. Atelectasis , resolved 10. Pleural effusion, hemothorax 11. Ulcerative esophagitis 12. Leukocytosis PLAN: 1. Observe off antibiotic 2. Will f/u blood cultures, COVID test & sputum culture Subjective ROS Limited/Unobtainable: Yes Allergies: Coded Allergies: VANCOMYCIN (Unverified Allergy, Unknown, 08/02/19) Objective Vital Signs Last 24 Hour Vital Signs Date Time Temp Pulse Resp B/P (MAP) Pulse Ox O2 Delivery O2 Flow Rate FiO2 10/06/19 09:04 178/90 10/06/19 09:04 63 178/90 10/06/19 09:03 63 178/90 10/06/19 08:13 63 18 21 10/06/19 08:00 96.8 86 18 178/90 (119) 97 10/06/19 07:54 70 10/06/19 04:00 66 10/06/19 04:00 Mechanical Ventilator 10/06/19 04:00 97.4 64 18 159/86 (110) 99 10/06/19 04:00 21 10/06/19 03:29 59 18 21 10/06/19 01:58 197/82 10/06/19 00:00 57 10/06/19 00:00 Mechanical Ventilator 10/06/19 00:00 97.6 63 20 197/82 (120) 99 10/06/19 00:00 21 10/05/19 23:30 66 20 21 10/05/19 20:51 202/98 10/05/19 20:09 70 159/90 10/05/19 20:00 Mechanical Ventilator 10/05/19 20:00 97.1 74 18 158/80 (106) 100 10/05/19 20:00 21 10/05/19 19:30 56 18 21 10/05/19 19:10 71 10/05/19 18:40 98.0 70 19 158/59 (92) 99 10/05/19 16:01 98.2 74 19 164/66 (98) 99 10/05/19 16:00 21 10/05/19 16:00 Mechanical Ventilator 10/05/19 15:24 80 10/05/19 15:00 72 18 21 10/05/19 12:26 Mechanical Ventilator 10/05/19 12:00 21 10/05/19 12:00 98.7 81 17 156/82 (106) 99 10/05/19 11:35 78 10/05/19 10:55 77 18 Mechanical Ventilator 21 Height (Feet): 5 Height (Inches): 4.00 Weight (Pounds): 112 General Appearance: cachetic HEENT: status post trach Respiratory/Chest: other - on ventilator Abdomen: soft, non tender, other - GT feeding Extremities: no edema Neurologic/Psychiatric: aphasia Laboratory Tests Test 10/06/19 03:10 White Blood Count 15.7 K/UL (4.8-10.8) H Red Blood Count 2.96 M/UL (4.20-5.40) L Hemoglobin 9.2 G/DL (12.0-16.0) L Hematocrit 25.9 % (37.0-47.0) L Mean Corpuscular Volume 88 FL (80-99) Mean Corpuscular Hemoglobin 31.2 PG (27.0-31.0) H Mean Corpuscular Hemoglobin Concent 35.7 G/DL (32.0-36.0) Red Cell Distribution Width 14.3 % (11.6-14.8) Platelet Count 164 K/UL (150-450) Mean Platelet Volume 5.1 FL (6.5-10.1) L Neutrophils (%) (Auto) 77.8 % (45.0-75.0) H Lymphocytes (%) (Auto) 18.8 % (20.0-45.0) L Monocytes (%) (Auto) 2.3 % (1.0-10.0) Eosinophils (%) (Auto) 0.8 % (0.0-3.0) Basophils (%) (Auto) 0.4 % (0.0-2.0) Sodium Level 135 MMOL/L (136-145) L Potassium Level 4.1 MMOL/L (3.5-5.1) Chloride Level 100 MMOL/L (98-107) Carbon Dioxide Level 22 MMOL/L (21-32) Anion Gap 13 mmol/L (5-15) Blood Urea Nitrogen 170 mg/dL (7-18) H Creatinine 4.0 MG/DL (0.55-1.30) H Estimat Glomerular Filtration Rate 10.8 mL/min (>60) Glucose Level 117 MG/DL (74-106) #H Calcium Level 8.7 MG/DL (8.5-10.1) Phosphorus Level 4.2 MG/DL (2.5-4.9) Magnesium Level 2.6 MG/DL (1.8-2.4) H Iron Level 89 ug/dL (50-175) Total Iron Binding Capacity 110 ug/dL (250-450) L Percent Iron Saturation 81 % (15-50) H Unsaturated Iron Binding 21 ug/dL (112-346) L Ferritin 860 NG/ML (8-388) H Total Bilirubin 0.5 MG/DL (0.2-1.0) Aspartate Amino Transf (AST/SGOT) 152 U/L (15-37) H Alanine Aminotransferase (ALT/SGPT) 162 U/L (12-78) H Alkaline Phosphatase 337 U/L (46-116) H Lactate Dehydrogenase 430 U/L (81-234) H C-Reactive Protein, Quantitative 14.8 mg/dL (0.00-0.90) H Pro-B-Type Natriuretic Peptide > 25401 pg/mL (0-125) H Total Protein 6.5 G/DL (6.4-8.2) Albumin 1.9 G/DL (3.4-5.0) L Globulin 4.6 g/dL Albumin/Globulin Ratio 0.4 (1.0-2.7) L Vitamin B12 Level 1282 PG/ML (193-986) H Folate 18.5 NG/ML (8.6-58.9) Current Medications Medications (Trade) Dose Ordered Sig/Javier Route PRN Reason Start Time Stop Time Status Last Admin Dose Admin Amlodipine Besylate (Norvasc) 5 mg BID ORAL 09/25/19 09:00 10/25/19 08:59 10/06/19 09:03 Azathioprine (Imuran) 50 mg DAILY ORAL 10/05/19 09:00 01/03/20 08:59 10/06/19 09:04 Chlorhexidine Gluconate (Nae-Hex 2%) 1 applic DAILY@1999 TOPIC 09/17/19 20:00 12/16/19 19:59 10/05/19 20:08 Clonidine HCl (Catapres Tab) 0.1 mg Q4H PRN ORAL For High Blood Pressure 09/22/19 21:00 12/21/19 20:59 10/06/19 01:58 Dextrose (Dextrose 50%) 25 ml Q30M PRN IV Hypoglycemia 09/02/19 06:15 12/01/19 06:14 09/04/19 12:11 Dextrose (Dextrose 50%) 50 ml Q30M PRN IV Hypoglycemia 09/02/19 06:15 12/01/19 06:14 Epoetin Thomas (Epoetin Thomas-EPBX(NON ESRD)) 4,000 unit THU-THU-THU SUBQ 10/05/19 21:00 01/03/20 20:59 10/05/19 20:38 Lansoprazole (Prevacid) 30 mg DAILY GT 09/27/19 09:00 10/27/19 08:59 10/06/19 09:04 Levothyroxine Sodium (Synthroid) 125 mcg DAILY@0630 ORAL 09/22/19 06:30 10/22/19 06:29 10/06/19 06:20 Losartan Potassium (Cozaar) 100 mg DAILY GT 10/06/19 09:00 11/05/19 08:59 10/06/19 09:04 Metoprolol Tartrate (Lopressor) 25 mg Q12HR ORAL 10/01/19 09:00 12/30/19 08:59 10/06/19 09:04 Piperacillin Sod/ Tazobactam Sod 2.25 gm/Dextrose 55 ml @ 110 mls/hr Q8HR IVPB 10/06/19 06:00 10/11/19 05:59 10/06/19 06:19 Prednisone (predniSONE) 30 mg DAILY ORAL 10/03/19 09:00 11/02/19 08:59 10/06/19 09:03 Psyllium Hydrophilic Mucilloid (Metamucil) 1 pkt DAILY ORAL 09/22/19 15:00 10/22/19 14:59 10/06/19 09:05 Sevelamer Carbonate (Renvela) 800 mg Q8HR NG 09/25/19 14:00 12/24/19 13:59 10/06/19 06:19 Warren Parks MD Oct 06, 2019 10:46
--- NOTE | 2019-10-06 11:05 | Nephrology Progress Note ---
Assessment/Plan Problem List: (1) Liver enzyme elevation Assessment: Acute (2) ESRD (end stage renal disease) on dialysis (3) Malnutrition (4) Anemia in CKD (chronic kidney disease) (5) Hypotension (6) Thrombocytopenia (7) Sepsis Assessment: klebsiella in blood Assessment -Early sepsis with shock. -Healthcare-associated pneumonia. -Severe protein-calorie malnutrition. -Thrombocytopenia. - End-stage renal disease. - History of hypertension. - Bradycardia. - HypoThyroid Plan On prednisone and Imuran Had 2 sets of blood culture yesterday Chest x-ray suggests new infiltrate: Right perihilar infiltrate, new since prior study of 09/21/2019 Hemodialysis done October 02, next hemodialysis October 06 Previously patient white blood cell counts mario, unclear if it is due to steroids or an underlying infectious process Smooth muscle antibody positive, Ig G elevated Liver enzymes elevated but declining Tracheostomy September 07 Last dialysis September 26, next dialysis today October 02 Chest tube on the left side was put in on September 01 was discontinued September 07 Patient transfused 3 units of packed RBCs for low hemoglobin Remains full code Blood pressure fluctuating, will start hydralazine via NG tube for blood pressure Magnesium and potassium supplement intravenously as needed Patient underwent PEG placement August 16 patient remains intubated on ventilator Discussed with RN Aim to wean from ventilator or consider tracheostomy Permacath was removed on August 12 Dialysis 08/11 Transfusion as needed Patient had hematemesis meds IV as possible Surveillance blood cultures tomorrow Plan to put the permacath back in on Thursday if cultures are negative keep BP and BS in check Inflammatory markers per orders Subjective ROS Limited/Unobtainable: Yes Objective Objective Last 24 Hour Vital Signs Date Time Temp Pulse Resp B/P (MAP) Pulse Ox O2 Delivery O2 Flow Rate FiO2 10/06/19 09:04 178/90 10/06/19 09:04 63 178/90 10/06/19 09:03 63 178/90 10/06/19 08:13 63 18 21 10/06/19 08:00 96.8 86 18 178/90 (119) 97 10/06/19 08:00 21 10/06/19 08:00 Mechanical Ventilator 10/06/19 07:54 70 10/06/19 04:00 66 10/06/19 04:00 Mechanical Ventilator 10/06/19 04:00 97.4 64 18 159/86 (110) 99 10/06/19 04:00 21 10/06/19 03:29 59 18 21 10/06/19 01:58 197/82 10/06/19 00:00 57 10/06/19 00:00 Mechanical Ventilator 10/06/19 00:00 97.6 63 20 197/82 (120) 99 10/06/19 00:00 21 10/05/19 23:30 66 20 21 10/05/19 20:51 202/98 10/05/19 20:09 70 159/90 10/05/19 20:00 Mechanical Ventilator 10/05/19 20:00 97.1 74 18 158/80 (106) 100 10/05/19 20:00 21 10/05/19 19:30 56 18 21 10/05/19 19:10 71 10/05/19 18:40 98.0 70 19 158/59 (92) 99 10/05/19 16:01 98.2 74 19 164/66 (98) 99 10/05/19 16:00 21 10/05/19 16:00 Mechanical Ventilator 10/05/19 15:24 80 10/05/19 15:00 72 18 21 10/05/19 12:26 Mechanical Ventilator 10/05/19 12:00 21 10/05/19 12:00 98.7 81 17 156/82 (106) 99 10/05/19 11:35 78 10/05/19 10:55 77 18 Mechanical Ventilator 21 Intake and Output 10/05/19 10/06/19 19:00 07:00 Intake Total 590 ml 505 ml Output Total 400 ml 400 ml Balance 190 ml 105 ml Intake Free Water 100 ml IV Total 55 ml Tube Feeding 280 ml 350 ml Blood Product 250 ml Other 60 ml Output Urine Total 400 ml 400 ml # Bowel Movements 2 Current Medications Medications (Trade) Dose Ordered Sig/Javier Route PRN Reason Start Time Stop Time Status Last Admin Dose Admin Amlodipine Besylate (Norvasc) 5 mg BID ORAL 09/25/19 09:00 10/25/19 08:59 10/06/19 09:03 Azathioprine (Imuran) 50 mg DAILY ORAL 10/05/19 09:00 01/03/20 08:59 10/06/19 09:04 Chlorhexidine Gluconate (Nae-Hex 2%) 1 applic DAILY@1999 TOPIC 09/17/19 20:00 12/16/19 19:59 10/05/19 20:08 Clonidine HCl (Catapres Tab) 0.1 mg Q4H PRN ORAL For High Blood Pressure 09/22/19 21:00 12/21/19 20:59 10/06/19 01:58 Dextrose (Dextrose 50%) 25 ml Q30M PRN IV Hypoglycemia 09/02/19 06:15 12/01/19 06:14 09/04/19 12:11 Dextrose (Dextrose 50%) 50 ml Q30M PRN IV Hypoglycemia 09/02/19 06:15 12/01/19 06:14 Epoetin Thomas (Epoetin Thomas-EPBX(NON ESRD)) 4,000 unit SUBQ 10/05/19 21:00 01/03/20 20:59 10/05/19 20:38 Lansoprazole (Prevacid) 30 mg DAILY GT 09/27/19 09:00 10/27/19 08:59 10/06/19 09:04 Levothyroxine Sodium (Synthroid) 125 mcg DAILY@0630 ORAL 09/22/19 06:30 10/22/19 06:29 10/06/19 06:20 Losartan Potassium (Cozaar) 100 mg DAILY GT 10/06/19 09:00 11/05/19 08:59 10/06/19 09:04 Metoprolol Tartrate (Lopressor) 25 mg Q12HR ORAL 10/01/19 09:00 12/30/19 08:59 10/06/19 09:04 Piperacillin Sod/ Tazobactam Sod 2.25 gm/Dextrose 55 ml @ 110 mls/hr Q8HR IVPB 10/06/19 06:00 10/11/19 05:59 10/06/19 06:19 Prednisone (predniSONE) 30 mg DAILY ORAL 10/03/19 09:00 11/02/19 08:59 10/06/19 09:03 Psyllium Hydrophilic Mucilloid (Metamucil) 1 pkt DAILY ORAL 09/22/19 15:00 10/22/19 14:59 10/06/19 09:05 Sevelamer Carbonate (Renvela) 800 mg Q8HR NG 09/25/19 14:00 12/24/19 13:59 10/06/19 06:19 Laboratory Tests 10/06/19 03:10: White Blood Count 15.7H, Red Blood Count 2.96L, Hemoglobin 9.2L, Hematocrit 25.9L, Mean Corpuscular Volume 88, Mean Corpuscular Hemoglobin 31.2H, Mean Corpuscular Hemoglobin Concent 35.7, Red Cell Distribution Width 14.3, Platelet Count 164, Mean Platelet Volume 5.1L, Neutrophils (%) (Auto) 77.8H, Lymphocytes (%) (Auto) 18.8L, Monocytes (%) (Auto) 2.3, Eosinophils (%) (Auto) 0.8, Basophils (%) (Auto) 0.4, Sodium Level 135L, Potassium Level 4.1, Chloride Level 100, Carbon Dioxide Level 22, Anion Gap 13, Blood Urea Nitrogen 170H, Creatinine 4.0H, Estimat Glomerular Filtration Rate 10.8, Glucose Level 117#H, Calcium Level 8.7, Phosphorus Level 4.2, Magnesium Level 2.6H, Iron Level 89, Total Iron Binding Capacity 110L, Percent Iron Saturation 81H, Unsaturated Iron Binding 21L, Ferritin 860H, Total Bilirubin 0.5, Aspartate Amino Transf (AST/ SGOT) 152H, Alanine Aminotransferase (ALT/SGPT) 162H, Alkaline Phosphatase 337H , Lactate Dehydrogenase 430H, C-Reactive Protein, Quantitative 14.8H, Pro-B- Type Natriuretic Peptide > 12796Y, Total Protein 6.5, Albumin 1.9L, Globulin 4.6 , Albumin/Globulin Ratio 0.4L, Vitamin B12 Level 1282H, Folate 18.5 Height (Feet): 5 Height (Inches): 4.00 Weight (Pounds): 112 General Appearance: no apparent distress, lethargic EENT: other - Trached and vent Cardiovascular: normal rate Respiratory/Chest: decreased breath sounds Abdomen: soft Objective no change William Blackwood MD Oct 06, 2019 11:04
--- NOTE | 2019-10-06 11:11 | General Progress Note ---
Assessment/Plan Status: stable, not improved, unchanged, deteriorating Assessment/Plan: Assessment - Severe ulcerative esophagitis - mild elevation in LFT, Hepatitis B/C negative --> now sudden rise - ? related to new 1.9 cm mass near GB - ? autoimmune / high ESR - abnormal liver on CT - ? chronic disease / fibrosis - Resp failure - trach - s/p recent Chest tube and removal - Renal failure - aspiration risk --> s/p PEG - anemia - bradycardia - Poor prognosis Recommendations - CT reviewed -? shock liver. Repeat in am>>> improving - check autoimmune markers - pending>>> neg JOLIE - check AFP - GT care - water flushes - elevate HOB - monitor H&H - ppi -check stool ob>>>positive>>> ordered one more>>>seconf one neg patient poor candidate for GI procedures - vent -patient not a candidate for liver biopsy -given elevated SM Ab and igg, neg hepatitis panel >>>started prednisone 30 mg Day #5 - imuran #1 -fu LFTS>>>improving Subjective ROS Limited/Unobtainable: No Allergies: Coded Allergies: VANCOMYCIN (Unverified Allergy, Unknown, 08/02/19) Subjective s/p blood transfusion Objective Last 24 Hour Vital Signs Date Time Temp Pulse Resp B/P (MAP) Pulse Ox O2 Delivery O2 Flow Rate FiO2 10/06/19 11:03 57 18 21 10/06/19 11:03 100 10/06/19 09:04 178/90 10/06/19 09:04 63 178/90 10/06/19 09:03 63 178/90 10/06/19 08:13 63 18 21 10/06/19 08:00 96.8 86 18 178/90 (119) 97 10/06/19 08:00 21 10/06/19 08:00 Mechanical Ventilator 10/06/19 07:54 70 10/06/19 04:00 66 10/06/19 04:00 Mechanical Ventilator 10/06/19 04:00 97.4 64 18 159/86 (110) 99 10/06/19 04:00 21 10/06/19 03:29 59 18 21 10/06/19 01:58 197/82 10/06/19 00:00 57 10/06/19 00:00 Mechanical Ventilator 10/06/19 00:00 97.6 63 20 197/82 (120) 99 10/06/19 00:00 21 10/05/19 23:30 66 20 21 10/05/19 20:51 202/98 10/05/19 20:09 70 159/90 10/05/19 20:00 Mechanical Ventilator 10/05/19 20:00 97.1 74 18 158/80 (106) 100 10/05/19 20:00 21 10/05/19 19:30 56 18 21 10/05/19 19:10 71 10/05/19 18:40 98.0 70 19 158/59 (92) 99 10/05/19 16:01 98.2 74 19 164/66 (98) 99 10/05/19 16:00 21 10/05/19 16:00 Mechanical Ventilator 10/05/19 15:24 80 10/05/19 15:00 72 18 21 10/05/19 12:26 Mechanical Ventilator 10/05/19 12:00 21 10/05/19 12:00 98.7 81 17 156/82 (106) 99 10/05/19 11:35 78 Intake and Output 10/05/19 10/06/19 19:00 07:00 Intake Total 590 ml 505 ml Output Total 400 ml 400 ml Balance 190 ml 105 ml Intake Free Water 100 ml IV Total 55 ml Tube Feeding 280 ml 350 ml Blood Product 250 ml Other 60 ml Output Urine Total 400 ml 400 ml # Bowel Movements 2 Laboratory Tests 10/06/19 03:10: White Blood Count 15.7H, Red Blood Count 2.96L, Hemoglobin 9.2L, Hematocrit 25.9L, Mean Corpuscular Volume 88, Mean Corpuscular Hemoglobin 31.2H, Mean Corpuscular Hemoglobin Concent 35.7, Red Cell Distribution Width 14.3, Platelet Count 164, Mean Platelet Volume 5.1L, Neutrophils (%) (Auto) 77.8H, Lymphocytes (%) (Auto) 18.8L, Monocytes (%) (Auto) 2.3, Eosinophils (%) (Auto) 0.8, Basophils (%) (Auto) 0.4, Sodium Level 135L, Potassium Level 4.1, Chloride Level 100, Carbon Dioxide Level 22, Anion Gap 13, Blood Urea Nitrogen 170H, Creatinine 4.0H, Estimat Glomerular Filtration Rate 10.8, Glucose Level 117#H, Calcium Level 8.7, Phosphorus Level 4.2, Magnesium Level 2.6H, Iron Level 89, Total Iron Binding Capacity 110L, Percent Iron Saturation 81H, Unsaturated Iron Binding 21L, Ferritin 860H, Total Bilirubin 0.5, Aspartate Amino Transf (AST/ SGOT) 152H, Alanine Aminotransferase (ALT/SGPT) 162H, Alkaline Phosphatase 337H , Lactate Dehydrogenase 430H, C-Reactive Protein, Quantitative 14.8H, Pro-B- Type Natriuretic Peptide > 70131T, Total Protein 6.5, Albumin 1.9L, Globulin 4.6 , Albumin/Globulin Ratio 0.4L, Vitamin B12 Level 1282H, Folate 18.5 Height (Feet): 5 Height (Inches): 4.00 Weight (Pounds): 112 General Appearance: lethargic EENT: normal ENT inspection Neck: supple Cardiovascular: normal rate Respiratory/Chest: decreased breath sounds Abdomen: normal bowel sounds, non tender, soft Extremities: non-tender Kenny Rudolph MD Oct 06, 2019 11:11
[2019-10-06 12:00] VITALS: BP 153/74
--- NOTE | 2019-10-06 13:19 | General Progress Note ---
Assessment/Plan Problem List: (1) Hypothyroid ICD Codes: E03.9 - Hypothyroidism, unspecified SNOMED: 04824426 (2) ESRD (end stage renal disease) on dialysis ICD Codes: N18.6 - End stage renal disease; Z99.2 - Dependence on renal dialysis SNOMED: 824101752 (3) Hypotension ICD Codes: I95.9 - Hypotension, unspecified SNOMED: 43429844 Qualifiers: Qualified Codes: I95.3 - Hypotension of hemodialysis (4) Pneumonia ICD Codes: J18.9 - Pneumonia, unspecified organism SNOMED: 224483110 Qualifiers: Qualified Codes: J18.9 - Pneumonia, unspecified organism (5) Diabetes mellitus ICD Codes: E11.9 - Type 2 diabetes mellitus without complications SNOMED: 73947643 Status: stable, not improved, unchanged, deteriorating Assessment/Plan: thyroid function normalized continue Levothyroxine tablet 125 mcg daily repeat TSH, free T4 in 4 weeks I sign off Subjective ROS Limited/Unobtainable: Yes Allergies: Coded Allergies: VANCOMYCIN (Unverified Allergy, Unknown, 08/02/19) Subjective events noted interval notes reviewed on vent on TF Objective Last 24 Hour Vital Signs Date Time Temp Pulse Resp B/P (MAP) Pulse Ox O2 Delivery O2 Flow Rate FiO2 10/06/19 12:06 Mechanical Ventilator 10/06/19 12:00 97.0 55 18 153/74 (100) 99 10/06/19 12:00 21 10/06/19 11:36 61 10/06/19 11:03 57 18 21 10/06/19 11:03 100 10/06/19 09:04 178/90 10/06/19 09:04 63 178/90 10/06/19 09:03 63 178/90 10/06/19 08:13 63 18 21 10/06/19 08:00 96.8 86 18 178/90 (119) 97 10/06/19 08:00 21 10/06/19 08:00 Mechanical Ventilator 10/06/19 07:54 70 10/06/19 04:00 66 10/06/19 04:00 Mechanical Ventilator 10/06/19 04:00 97.4 64 18 159/86 (110) 99 10/06/19 04:00 21 10/06/19 03:29 59 18 21 4/23/20 01:58 197/82 10/06/19 00:00 57 10/06/19 00:00 Mechanical Ventilator 10/06/19 00:00 97.6 63 20 197/82 (120) 99 10/06/19 00:00 21 10/05/19 23:30 66 20 21 10/05/19 20:51 202/98 10/05/19 20:09 70 159/90 10/05/19 20:00 Mechanical Ventilator 10/05/19 20:00 97.1 74 18 158/80 (106) 100 10/05/19 20:00 21 10/05/19 19:30 56 18 21 10/05/19 19:10 71 10/05/19 18:40 98.0 70 19 158/59 (92) 99 10/05/19 16:01 98.2 74 19 164/66 (98) 99 10/05/19 16:00 21 10/05/19 16:00 Mechanical Ventilator 10/05/19 15:24 80 10/05/19 15:00 72 18 21 Intake and Output 10/05/19 10/06/19 19:00 07:00 Intake Total 590 ml 505 ml Output Total 400 ml 400 ml Balance 190 ml 105 ml Intake Free Water 100 ml IV Total 55 ml Tube Feeding 280 ml 350 ml Blood Product 250 ml Other 60 ml Output Urine Total 400 ml 400 ml # Bowel Movements 2 Laboratory Tests 10/06/19 03:10: White Blood Count 15.7H, Red Blood Count 2.96L, Hemoglobin 9.2L, Hematocrit 25.9L, Mean Corpuscular Volume 88, Mean Corpuscular Hemoglobin 31.2H, Mean Corpuscular Hemoglobin Concent 35.7, Red Cell Distribution Width 14.3, Platelet Count 164, Mean Platelet Volume 5.1L, Neutrophils (%) (Auto) 77.8H, Lymphocytes (%) (Auto) 18.8L, Monocytes (%) (Auto) 2.3, Eosinophils (%) (Auto) 0.8, Basophils (%) (Auto) 0.4, Sodium Level 135L, Potassium Level 4.1, Chloride Level 100, Carbon Dioxide Level 22, Anion Gap 13, Blood Urea Nitrogen 170H, Creatinine 4.0H, Estimat Glomerular Filtration Rate 10.8, Glucose Level 117#H, Calcium Level 8.7, Phosphorus Level 4.2, Magnesium Level 2.6H, Iron Level 89, Total Iron Binding Capacity 110L, Percent Iron Saturation 81H, Unsaturated Iron Binding 21L, Ferritin 860H, Total Bilirubin 0.5, Aspartate Amino Transf (AST/ SGOT) 152H, Alanine Aminotransferase (ALT/SGPT) 162H, Alkaline Phosphatase 337H , Lactate Dehydrogenase 430H, C-Reactive Protein, Quantitative 14.8H, Pro-B- Type Natriuretic Peptide > 49816Q, Total Protein 6.5, Albumin 1.9L, Globulin 4.6 , Albumin/Globulin Ratio 0.4L, Vitamin B12 Level 1282H, Folate 18.5 Height (Feet): 5 Height (Inches): 4.00 Weight (Pounds): 112 General Appearance: cachetic Neck: normal alignment Cardiovascular: normal rate Respiratory/Chest: decreased breath sounds Abdomen: normal bowel sounds Objective Current Medications Medications (Trade) Dose Ordered Sig/Javier Route PRN Reason Start Time Stop Time Status Last Admin Dose Admin Amlodipine Besylate (Norvasc) 5 mg BID ORAL 09/25/19 09:00 10/25/19 08:59 10/06/19 09:03 Azathioprine (Imuran) 50 mg DAILY ORAL 10/05/19 09:00 01/03/20 08:59 10/06/19 09:04 Chlorhexidine Gluconate (Nae-Hex 2%) 1 applic DAILY@1999 TOPIC 09/17/19 20:00 12/16/19 19:59 10/05/19 20:08 Clonidine HCl (Catapres Tab) 0.1 mg Q4H PRN ORAL For High Blood Pressure 09/22/19 21:00 12/21/19 20:59 10/06/19 01:58 Dextrose (Dextrose 50%) 25 ml Q30M PRN IV Hypoglycemia 09/02/19 06:15 12/01/19 06:14 09/04/19 12:11 Dextrose (Dextrose 50%) 50 ml Q30M PRN IV Hypoglycemia 09/02/19 06:15 12/01/19 06:14 Epoetin Thomas (Epoetin Thomas-EPBX(NON ESRD)) 4,000 unit THU-THU-THU SUBQ 10/05/19 21:00 01/03/20 20:59 10/05/19 20:38 Lansoprazole (Prevacid) 30 mg BID GT 10/06/19 18:00 10/27/19 08:59 Levothyroxine Sodium (Synthroid) 125 mcg DAILY@0630 ORAL 09/22/19 06:30 10/22/19 06:29 10/06/19 06:20 Losartan Potassium (Cozaar) 100 mg DAILY GT 10/06/19 09:00 11/05/19 08:59 10/06/19 09:04 Metoprolol Tartrate (Lopressor) 25 mg Q12HR ORAL 10/01/19 09:00 12/30/19 08:59 10/06/19 09:04 Piperacillin Sod/ Tazobactam Sod 2.25 gm/Dextrose 55 ml @ 110 mls/hr Q8HR IVPB 10/06/19 06:00 10/11/19 05:59 10/06/19 06:19 Prednisone (predniSONE) 30 mg DAILY ORAL 10/03/19 09:00 11/02/19 08:59 10/06/19 09:03 Psyllium Hydrophilic Mucilloid (Metamucil) 1 pkt DAILY ORAL 09/22/19 15:00 10/22/19 14:59 10/06/19 09:05 Sevelamer Carbonate (Renvela) 800 mg Q8HR NG 09/25/19 14:00 12/24/19 13:59 10/06/19 06:19 Antonio Jacome MD Oct 06, 2019 13:19
--- NOTE | 2019-10-06 15:16 | Surgery Progress Note ---
Surgery Progress Note Subjective Procedure Performed 1. tracheostomy 2 removal of left tube thoracostomy Additional Comments leukocytosis improving transfused exam stable Objective Last 24 Hour Vital Signs Date Time Temp Pulse Resp B/P (MAP) Pulse Ox O2 Delivery O2 Flow Rate FiO2 10/06/19 12:06 Mechanical Ventilator 10/06/19 12:00 97.0 55 18 153/74 (100) 99 10/06/19 12:00 21 10/06/19 11:36 61 10/06/19 11:03 57 18 21 10/06/19 11:03 100 10/06/19 09:04 178/90 10/06/19 09:04 63 178/90 10/06/19 09:03 63 178/90 10/06/19 08:13 63 18 21 10/06/19 08:00 96.8 86 18 178/90 (119) 97 10/06/19 08:00 21 10/06/19 08:00 Mechanical Ventilator 10/06/19 07:54 70 10/06/19 04:00 66 10/06/19 04:00 Mechanical Ventilator 10/06/19 04:00 97.4 64 18 159/86 (110) 99 10/06/19 04:00 21 10/06/19 03:29 59 18 21 10/06/19 01:58 197/82 10/06/19 00:00 57 10/06/19 00:00 Mechanical Ventilator 10/06/19 00:00 97.6 63 20 197/82 (120) 99 10/06/19 00:00 21 10/05/19 23:30 66 20 21 10/05/19 20:51 202/98 10/05/19 20:09 70 159/90 10/05/19 20:00 Mechanical Ventilator 10/05/19 20:00 97.1 74 18 158/80 (106) 100 10/05/19 20:00 21 10/05/19 19:30 56 18 21 10/05/19 19:10 71 10/05/19 18:40 98.0 70 19 158/59 (92) 99 10/05/19 16:01 98.2 74 19 164/66 (98) 99 10/05/19 16:00 21 10/05/19 16:00 Mechanical Ventilator 10/05/19 15:24 80 I&O Intake and Output 10/05/19 10/06/19 19:00 07:00 Intake Total 590 ml 505 ml Output Total 400 ml 400 ml Balance 190 ml 105 ml Intake Free Water 100 ml IV Total 55 ml Tube Feeding 280 ml 350 ml Blood Product 250 ml Other 60 ml Output Urine Total 400 ml 400 ml # Bowel Movements 2 Dressing: other Wound: other Drains: other Cardiovascular: RSR Respiratory: decreased breath sounds Abdomen: soft, non-tender, present bowel sounds Extremities: no tenderness, no cyanosis Laboratory Tests Test 10/06/19 03:10 White Blood Count 15.7 K/UL (4.8-10.8) H Red Blood Count 2.96 M/UL (4.20-5.40) L Hemoglobin 9.2 G/DL (12.0-16.0) L Hematocrit 25.9 % (37.0-47.0) L Mean Corpuscular Volume 88 FL (80-99) Mean Corpuscular Hemoglobin 31.2 PG (27.0-31.0) H Mean Corpuscular Hemoglobin Concent 35.7 G/DL (32.0-36.0) Red Cell Distribution Width 14.3 % (11.6-14.8) Platelet Count 164 K/UL (150-450) Mean Platelet Volume 5.1 FL (6.5-10.1) L Neutrophils (%) (Auto) 77.8 % (45.0-75.0) H Lymphocytes (%) (Auto) 18.8 % (20.0-45.0) L Monocytes (%) (Auto) 2.3 % (1.0-10.0) Eosinophils (%) (Auto) 0.8 % (0.0-3.0) Basophils (%) (Auto) 0.4 % (0.0-2.0) Sodium Level 135 MMOL/L (136-145) L Potassium Level 4.1 MMOL/L (3.5-5.1) Chloride Level 100 MMOL/L (98-107) Carbon Dioxide Level 22 MMOL/L (21-32) Anion Gap 13 mmol/L (5-15) Blood Urea Nitrogen 170 mg/dL (7-18) H Creatinine 4.0 MG/DL (0.55-1.30) H Estimat Glomerular Filtration Rate 10.8 mL/min (>60) Glucose Level 117 MG/DL (74-106) #H Calcium Level 8.7 MG/DL (8.5-10.1) Phosphorus Level 4.2 MG/DL (2.5-4.9) Magnesium Level 2.6 MG/DL (1.8-2.4) H Iron Level 89 ug/dL (50-175) Total Iron Binding Capacity 110 ug/dL (250-450) L Percent Iron Saturation 81 % (15-50) H Unsaturated Iron Binding 21 ug/dL (112-346) L Ferritin 860 NG/ML (8-388) H Total Bilirubin 0.5 MG/DL (0.2-1.0) Aspartate Amino Transf (AST/SGOT) 152 U/L (15-37) H Alanine Aminotransferase (ALT/SGPT) 162 U/L (12-78) H Alkaline Phosphatase 337 U/L (46-116) H Lactate Dehydrogenase 430 U/L (81-234) H C-Reactive Protein, Quantitative 14.8 mg/dL (0.00-0.90) H Pro-B-Type Natriuretic Peptide > 05154 pg/mL (0-125) H Total Protein 6.5 G/DL (6.4-8.2) Albumin 1.9 G/DL (3.4-5.0) L Globulin 4.6 g/dL Albumin/Globulin Ratio 0.4 (1.0-2.7) L Vitamin B12 Level 1282 PG/ML (193-986) H Folate 18.5 NG/ML (8.6-58.9) Assessment Post-op Diagnosis same Plan Problems: (1) Malnutrition Assessment & Plan: DAILY ESTIMATED NEEDS: Needs based on ESRD+ HD, underweight, wound/ 39.5kg 35-40 kcals/kg 2604-0052 total kcals 1.25-1.8 g protein/kg 49-71 g total protein 20-22 mL/kg 790-869 total fluid mLs NUTRITION DIAGNOSIS: * Increased kcal and protein needs r/t underweight status, HD needs, wuond healing as evidenced by pt is underweight per guidelines, ESRD, on HD, admitted non-blanching erythema wounds @ BL heels and sacrum * Swallowing difficulty R/T dysphagia as evidenced by [facility] recommends temporary nonoral feeding at this time, s/p NGT insertion, on NGT feeding-> now s/p self removal, NPO. CURRENT TF:NPO PO DIET RECOMMENDATIONS: WHEN SAFE FOR ORAL DIET -> renal/ texture per [facility] ENTERAL NUTRITION RECOMMENDATIONS: W/ GI access: Nepro @ 35ml/hr x 22 hrs to provide 770ml, 1386kcal, 62g prot, 560ml free water * W/ GI access, resume TF on Nepro * Initiate Nepro @ 15ml/hr x 6 hrs, advance 10ml q 4-6 hrs as tolerated to goal rate. * Hold 1 hour before and after Synthroid med * HOB over 30 degrees/ water flush per MD. ADDITIONAL RECOMMENDATIONS: 1) Calibrated bed scale wt for accurate CBW -> daily wt monitoring Per HD record: dry wt on 07/30=39.5kg (87lbs) 2) Wound care: (W/ GI access) add Nephorivte x 1 + Balta BID 3) Monitor NPO status: without GI access at this time, s/p pulling out NGT 4) Monitor for hypoglycemia while NPO 5) Monitor for continuity of HD (2) Septic arthritis Assessment & Plan: Pt presented on admission with generalized scaly rash . pt noted to be restless and scratching at skin. Bleeding from oral mucosa noted. Joint deformity noted to R shoulder. Surgical incision approximated with 11 sutures. Erythema but no exudate,or elevation in skin temp at site of incision. Historical incision R hip that is tunneled.Small amt seropurulent exudate noted. Periwound is erythematous,but no elevation in skin temp noted. No odor noted. Non-blanching erythema noted to sacrum. Perianal area is erythematous and excoriated. L heel is boggy with non-blanching erythema. R heel is soft with non-blanching erythema. No evidence of skin breakdown to all other bony prominences. Tx.plan: Cover R shoulder with Drsg and change daily and prn. Cleanse R hip wound with Saline. Apply Therahoney.Apply Cavilon Skin Barrier periwound. Cover with Optifoam drsg. Change every 3 days and prn. Apply Moisture Barrier Paste to perianal area and buttocks. Cover Sacrum with Optifoam drsg. Change every 3 days and prn. Apply Cavilon Skin Barrier to both heels. Cover each heel with Optifoam drsg. Change every 7 days and prn. APM/ELVIA Mattress overlay. Reposition at least every 2hours or as tolerated. Off-load heels with pillow. HD cath necessary HD as renal likely will need intubation 19 x 11 x 11 mm hypoechoic area in the liver adjacent to the gallbladder fossa. Although location is typical for area of focal sparing in a fatty liver, there are no findings to indicate fatty liver and this is a new finding since fairly recent previous exam. Therefore the possibility of a process such as small abscess should be considered. Atrophic echogenic kidneys Negative for gallstones or dilated bile ducts (3) Wound, open, hip or thigh with complication Assessment & Plan: slow healing will need nutritional optimization difficult ng tube peg when stable sutures removed from right shoulder comfortable wean vent may need trach (4) Abscess of right hip (5) possible septic arthritis (6) Renal failure (ARF), acute on chronic Assessment & Plan: cont HD will need tunneled cath placement okay to use fem line for now but will need change soon. line monitored and clean dressings going well (7) Pneumonia Assessment & Plan: intubated on vent support not tolerating weaning may need trach hemothorax likely after thoracentesis Chest CT noted Left chest tube placed With plan for trach chest tube can be considered but overall prognosis is very poor s/p trach left chest tub eout cxr noted and okay downgrade left pleural effusion dressings saturated will need to monitor. may need another chest tube as may not heal well on left side Anasarca, with as mentioned above diffuse edema of the soft tissues, trace ascites, and bilateral pleural effusions No hepatic abnormality to correlate with suspected small pericholecystic lesion in the liver described on recent sonogram. The lesion may be occult on noncontrast CT, may have been artifactual or may have resolved in the interim. Consider repeat sonography in a few days to assess progression No definite acute abdominal process otherwise Improved but still sizable left pleural effusion with minimal residual hemoperitoneum since prior CT scan of 09/01/2019. There is near complete atelectasis of the left lower lobe. There is a small right pleural effusion with atelectatic changes of the right lower lobe and right perihilar dense consolidation. These appear improved since a prior CT of 09/01/2019 Increased crazy paving type opacity within the right middle lobe since previous August [address], may reflect an area of increasing infiltrate, versus focal edema. There is also some dense consolidation of the perihilar right lower lobe which is improved since the previous August 31 CT Right groin temporary dialysis catheter in good position Atrophic kidneys, consistent with known history of chronic renal disease L2 compression fracture deformity, and advanced degenerative changes of the L2- L3 disc. Similar to prior study Marroquin catheter hold on repeat chest tube (8) Liver enzyme elevation Assessment & Plan: likely shock liver improving trend Camilo James Oct 06, 2019 15:16
[2019-10-06 16:00] VITALS: BP 167/98
[2019-10-06 20:00] VITALS: BP 183/79
[2019-10-06] MEDS: Dyna-Hex 2% Top Sol 2oz TOPIC SCH (20:32)
--- NOTE | 2019-10-06 20:44 | Hematology/Onc Progress Note ---
Assessment/Plan Assessment/Plan # Thrombocytopenia ow THROMBOCYTOSIS - potential causes multifactorial, evaluate liver and viral etiologies to begin, in this case due to sepsis with septic shock also with cirrhosis and liver disease --> Hep panel and HIV ordered --> neg --> US abd to evaluate for cirrhosis and hsm ordered --> reviewed --> Peripheral smear ordered to evaluate for blasts /schistocytes --> none noted --> abx and other meds have been reviewed --> ok for ppx if plt >50k w/ either heparin or lovenox --> Transfuse if Plt < 20k and fever, or if Plt < 10k without fever --> okay for permacath change once plt better--> for 08/14 --> plt trend: 43-->83-->237k-->292-->341-->315-->388 -->444-->530-->252k-->344- >529->525k-->273 # Anemia of chronic disease due to underlying chronic medical issues, multifactorial v Gi bleed --> Anemia workup has been ordered, rule out gi bleed --> No evidence of hemolysis is noted, peripheral smear has been reviewed. --> Hgb goal >7. Transfuse prn. --> Epogen has been started --> HOLD OFF IRON ferritin is >1000 --> Medications have been reviewed --> low threshold for gi evaluation in case has occult + --> hgb 9-->6.7-->9.2 -->10.5-->10.6 -->10.7-->10-->10.5-->9.8-->10.4-->9.5--> 3.6-->9.6-->9.7-->10-->10.3-->11->9.9->8.3->8.7-->8.1-->8.9-->7.4->9.2 --> blood tx: 08/11, 08/31, 10/03 --> CT Chest r/o hemothorax --> does show confirmation of a large left hemothorax. Complete atelectasis of the left lower lobe and partial left upper lobe atelectasis demonstrated. Mild rightward shift of the heart and mediastinum. --> stool ob negative # Leukocytosis with Sepsis with shock. --> abx as per id, recs noted--> off abx --> pressors as needed # Healthcare-associated pneumonia. --> recs reviewed --> abx: jung/micafungin-->jung-->off --> 08/24 chest: moderate left pleural effusion # Severe protein-calorie malnutrition. --> nutritional support # End-stage renal disease --> had as renal hd --> with permacath # History of hypertension. --> per cards, now with Bradycardia. # Resp failure s/p vent/trach # HypoThyroid # Ngt feedings # Dvt ppx scd's The timing of this note does not necessarily reflect the time of the patient was seen. Greatly appreciate consultation. Subjective Constitutional: Denies: no symptoms, chills, fever, malaise, weakness, other HEENT: Denies: no symptoms, eye pain, blurred vision, tearing, double vision, ear pain, ear discharge, nose pain, nose congestion, throat pain, throat swelling, mouth pain, mouth swelling, other Cardiovascular: Denies: no symptoms, chest pain, edema, irregular heart rate, lightheadedness, palpitations, syncope, other Respiratory: Denies: no symptoms, cough, shortness of breath, SOB with excertion, SOB at rest, sputum, wheezing, other Genitourinary: Denies: no symptoms, burning, discharge, frequency, flank pain, hematuria, incontinence, pain, urgency, other Neurologic/Psychiatric: Denies: no symptoms, anxiety, depressed, emotional problems, headache, numbness, paresthesia, pre-existing deficit, seizure, tingling, tremors, weakness, other Endocrine: Denies: no symptoms, excessive sweating, flushing, intolerance to cold, intolerance to heat, increased hunger, increased thirst, increased urine, unexplained weight gain, unexplained weight loss, other Hematologic/Lymphatic: Denies: no symptoms, anemia, easy bleeding, easy bruising, adenopathy, other Allergies: Coded Allergies: VANCOMYCIN (Unverified Allergy, Unknown, 08/02/19) Subjective 08/11: no bleeding or chills, labs reviewed, no major bleeding, plt less than 50k 08/12: icu, s/p blood, hgb improved to 9.2, 08/14: icu, pending consent for thora and permacath, labs reviewed 08/15: new permacath placed, no bleeding, for hd, plt much improved, started lovenox sq 08/16: ett to be adjusted, bp on high end, micafungin started, possible bronch 08/17: weaning as per pulm, no events otherwise, labs noted 08/18: no events no bleeding, remains confused on vent, for hd 08/20: icu, failed to wean, labs reviewed, jung 08/21: resting in bed, no overnight events, labs reviewed 08/22: awake, confused, restraints, no overnight events 08/23: no events, no bleeding, on ppi bid 08/24: icu, failed to wean, labs reviewed 08/25: no overnight events, us chest, restraints, afebrile 08/26 difficult in weaning, nad, seen by surg, pulm labs noted 08/27 awake on restraints, thoracentesis for am, labs reviewed 08/29 no bleeding, no night sweats, no major changes, on ppi bid 08/30 no major events, remains on vent, no bleeding, dw pcp 08/31 hgb dropped to 3.6, has been transfused with prbc, in icu, david Rn, ct chest pend 09/01 no major events, no bleeding, labs noted, hgb remains low, hgb 9.6 09/03 lethargic, left chest tube dry/intact, off abx, vent 09/04 remains on a vent, synthroid, labs reviewed 09/05 awake and alert, no acute events, hgb 9.8, no new orders 09/06 no bleeding or chills, labs noted, no major events overnight, david rn 09/07 no events, no night sweats, no bleeding, no fc, remains agitated in the am 09/08 remains in the icu, trach was done, on vent, abx off, on epo 09/10 transferred to sdu, restraints, vent, labs reviewed 09/11 tube feeds have been ongoing, no f/c, labs reviewed 09/12 no events, no bleeding, no night sweats, hgb 10 09/13 tsh is improved, remains confused, hgb is 11, no bleeding 09/14 no events, no bleeding, labs noted, vitals stable 09/15 confused, no acute events, restraints, dc planning 09/17 no new changes, no recent labs, placement pending 09/18 no events, no bleeding, no night sweats, fevers 09/19 nonverbal, vent, elevated bp, off abx 09/20 labs reviewed, dw rn, no bleeding, meds reviewed 09/21 is a+o x 1, nonverbal, no bleeding, labs reviewed, no night sweats 09/22 no major events, no bleeding, no night sweats, no f/c, labs noted hgb 10.5 09/25 no events, no bleeding, labs noted, cbc reviewed 09/26 no events, with gtube feeds ongoing and with event, labs noted 09/27 labs have been reviewed, no night sweats, no fc 09/28 labs reviewed, no night sweats, hgb lower, but holding off on transfusion 09/29 alert, stool ob negative, h/h stable, dc planning 10/01 sdu, tsh improved, labs reviewed, elevated bp 10/02 no major events, no bleeding, labs reviewed, hgb 8, nv 10/03 no changes, labs reviewed, cbc noted, no bleeding, hgb 6.7, to get 1 unit prbc 10/04 labs noted, no bleeding epogen has been started, hgb 7.4, on epo 10/05 labs have been reviewed, no bleeding, hg low, no bleeding, confused Objective Objective Current Medications Medications (Trade) Dose Ordered Sig/Javier Route PRN Reason Start Time Stop Time Status Last Admin Dose Admin Amlodipine Besylate (Norvasc) 5 mg BID ORAL 09/25/19 09:00 10/25/19 08:59 10/06/19 18:19 Azathioprine (Imuran) 50 mg DAILY ORAL 10/05/19 09:00 01/03/20 08:59 10/06/19 09:04 Chlorhexidine Gluconate (Nae-Hex 2%) 1 applic DAILY@1999 TOPIC 09/17/19 20:00 12/16/19 19:59 10/06/19 20:32 Clonidine HCl (Catapres Tab) 0.1 mg Q4H PRN ORAL For High Blood Pressure 09/22/19 21:00 12/21/19 20:59 10/06/19 20:35 Dextrose (Dextrose 50%) 25 ml Q30M PRN IV Hypoglycemia 09/02/19 06:15 12/01/19 06:14 09/04/19 12:11 Dextrose (Dextrose 50%) 50 ml Q30M PRN IV Hypoglycemia 09/02/19 06:15 12/01/19 06:14 Epoetin Thomas (Epoetin Thomas-EPBX(NON ESRD)) 4,000 unit SUBQ 10/05/19 21:00 01/03/20 20:59 10/05/19 20:38 Lansoprazole (Prevacid) 30 mg BID GT 10/06/19 18:00 10/27/19 08:59 10/06/19 18:20 Levothyroxine Sodium (Synthroid) 125 mcg DAILY@0630 ORAL 09/22/19 06:30 10/22/19 06:29 10/06/19 06:20 Losartan Potassium (Cozaar) 100 mg DAILY GT 10/06/19 09:00 11/05/19 08:59 10/06/19 09:04 Metoprolol Tartrate (Lopressor) 25 mg Q12HR ORAL 10/01/19 09:00 12/30/19 08:59 10/06/19 09:04 Piperacillin Sod/ Tazobactam Sod 2.25 gm/Dextrose 55 ml @ 110 mls/hr Q8HR IVPB 10/06/19 06:00 10/11/19 05:59 10/06/19 14:06 Prednisone (predniSONE) 30 mg DAILY ORAL 10/03/19 09:00 11/02/19 08:59 10/06/19 09:03 Psyllium Hydrophilic Mucilloid (Metamucil) 1 pkt DAILY ORAL 09/22/19 15:00 10/22/19 14:59 10/06/19 09:05 Sevelamer Carbonate (Renvela) 800 mg Q8HR NG 09/25/19 14:00 12/24/19 13:59 10/06/19 14:06 Last 24 Hour Vital Signs Date Time Temp Pulse Resp B/P (MAP) Pulse Ox O2 Delivery O2 Flow Rate FiO2 10/06/19 20:35 184/91 10/06/19 20:32 57 174/90 10/06/19 19:00 61 18 21 10/06/19 18:19 71 167/98 10/06/19 16:00 71 10/06/19 16:00 Mechanical Ventilator 10/06/19 16:00 97.5 69 20 167/98 (121) 97 10/06/19 16:00 21 10/06/19 15:43 71 20 21 10/06/19 12:06 Mechanical Ventilator 10/06/19 12:00 97.0 55 18 153/74 (100) 99 10/06/19 12:00 21 10/06/19 11:36 61 10/06/19 11:03 57 18 21 10/06/19 11:03 100 10/06/19 09:04 178/90 10/06/19 09:04 63 178/90 10/06/19 09:03 63 178/90 10/06/19 08:13 63 18 21 10/06/19 08:00 96.8 86 18 178/90 (119) 97 10/06/19 08:00 21 10/06/19 08:00 Mechanical Ventilator 10/06/19 07:54 70 10/06/19 04:00 66 10/06/19 04:00 Mechanical Ventilator 10/06/19 04:00 97.4 64 18 159/86 (110) 99 10/06/19 04:00 21 10/06/19 03:29 59 18 21 10/06/19 01:58 197/82 10/06/19 00:00 57 10/06/19 00:00 Mechanical Ventilator 10/06/19 00:00 97.6 63 20 197/82 (120) 99 10/06/19 00:00 21 10/05/19 23:30 66 20 21 10/05/19 20:51 202/98 10/05/19 20:09 70 159/90 10/05/19 20:00 Mechanical Ventilator 10/05/19 20:00 97.1 74 18 158/80 (106) 100 10/05/19 20:00 21 10/05/19 19:30 56 18 21 10/05/19 19:10 71 10/05/19 18:40 98.0 70 19 158/59 (92) 99 10/05/19 16:01 98.2 74 19 164/66 (98) 99 10/05/19 16:00 21 10/05/19 16:00 Mechanical Ventilator 10/05/19 15:24 80 10/05/19 15:00 72 18 21 10/05/19 12:26 Mechanical Ventilator 10/05/19 12:00 21 10/05/19 12:00 98.7 81 17 156/82 (106) 99 10/05/19 11:35 78 10/05/19 10:55 77 18 Mechanical Ventilator 21 10/05/19 08:25 168/104 10/05/19 08:25 80 168/104 10/05/19 08:24 80 168/104 10/05/19 08:00 98.9 80 18 168/104 (125) 100 10/05/19 08:00 Mechanical Ventilator 10/05/19 08:00 21 10/05/19 07:47 82 10/05/19 07:35 81 19 95 Mechanical Ventilator 21 79 18 10/05/19 04:00 Mechanical Ventilator 10/05/19 04:00 97.5 85 18 162/81 (108) 98 10/05/19 04:00 21 10/05/19 04:00 74 10/05/19 03:00 76 18 100 Mechanical Ventilator 21 80 18 21 10/05/19 00:00 21 10/05/19 00:00 70 10/05/19 00:00 Mechanical Ventilator 10/05/19 00:00 97.7 71 18 160/73 (102) 100 Intake and Output 10/05/19 10/06/19 19:00 07:00 Intake Total 590 ml 505 ml Output Total 400 ml 400 ml Balance 190 ml 105 ml Intake Free Water 100 ml IV Total 55 ml Tube Feeding 280 ml 350 ml Blood Product 250 ml Other 60 ml Output Urine Total 400 ml 400 ml # Bowel Movements 2 Labs Test 10/04/19 03:20 10/04/19 08:20 10/05/19 03:00 10/05/19 08:30 White Blood Count 7.8 K/UL (4.8-10.8) 13.1 K/UL (4.8-10.8) 21.2 K/UL (4.8-10.8) 25.8 K/UL (4.8-10.8) Red Blood Count 2.24 M/UL (4.20-5.40) 2.84 M/UL (4.20-5.40) 2.36 M/UL (4.20-5.40) 2.39 M/UL (4.20-5.40) Hemoglobin 6.7 G/DL (12.0-16.0) 8.7 G/DL (12.0-16.0) 7.4 G/DL (12.0-16.0) 7.4 G/DL (12.0-16.0) Hematocrit 19.6 % (37.0-47.0) 25.1 % (37.0-47.0) 20.9 % (37.0-47.0) 21.2 % (37.0-47.0) Mean Corpuscular Volume 87 FL (80-99) 88 FL (80-99) 88 FL (80-99) 89 FL (80- 99) Mean Corpuscular Hemoglobin 30.1 PG (27.0-31.0) 30.5 PG (27.0-31.0) 31.2 PG (27.0-31.0) 30.9 PG (27.0-31.0) Mean Corpuscular Hemoglobin Concent 34.4 G/DL (32.0-36.0) 34.6 G/DL (32.0-36.0) 35.3 G/DL (32.0-36.0) 34.8 G/DL (32.0-36.0) Red Cell Distribution Width 14.3 % (11.6-14.8) 15.1 % (11.6-14.8) 15.2 % (11.6-14.8) 15.4 % (11.6-14.8) Platelet Count 161 K/UL (150-450) 208 K/UL (150-450) 204 K/UL (150-450) 191 K/UL (150-450) Mean Platelet Volume 5.3 FL (6.5-10.1) 5.1 FL (6.5-10.1) 5.4 FL (6.5-10.1) 5.2 FL (6.5-10.1) Neutrophils (%) (Auto) % (45.0-75.0) 73.4 % (45.0-75.0) % (45.0-75.0) % (45.0-75.0) Lymphocytes (%) (Auto) % (20.0-45.0) 23.4 % (20.0-45.0) % (20.0-45.0) % (20.0-45.0) Monocytes (%) (Auto) % (1.0-10.0) 2.3 % (1.0-10.0) % (1.0-10.0) % (1.0-10.0) Eosinophils (%) (Auto) % (0.0-3.0) 0.6 % (0.0-3.0) % (0.0-3.0) % (0.0-3.0) Basophils (%) (Auto) % (0.0-2.0) 0.3 % (0.0-2.0) % (0.0-2.0) % (0.0-2.0) Differential Total Cells Counted 100 100 100 Neutrophils % (Manual) 66 % (45-75) 86 % (45-75) 91 % (45-75) Lymphocytes % (Manual) 30 % (20-45) 12 % (20-45) 6 % (20-45) Monocytes % (Manual) 2 % (1-10) 2 % (1-10) 2 % (1-10) Eosinophils % (Manual) 2 % (0-3) 0 % (0-3) 1 % (0-3) Basophils % (Manual) 0 % (0-2) 0 % (0-2) 0 % (0-2) Band Neutrophils 0 % (0-8) 0 % (0-8) 0 % (0-8) Platelet Estimate Adequate Adequate Adequate Platelet Morphology Normal Normal Normal Hypochromasia 1+ Anisocytosis 1+ Sodium Level 138 MMOL/L (136-145) 139 MMOL/L (136-145) Potassium Level 3.6 MMOL/L (3.5-5.1) 3.9 MMOL/L (3.5-5.1) Chloride Level 101 MMOL/L (98-107) 102 MMOL/L (98-107) Carbon Dioxide Level 24 MMOL/L (21-32) 21 MMOL/L (21-32) Anion Gap 13 mmol/L (5-15) 16 mmol/L (5-15) Blood Urea Nitrogen 154 mg/dL (7-18) 157 mg/dL (7-18) Creatinine 3.6 MG/DL (0.55-1.30) 3.9 MG/DL (0.55-1.30) Estimat Glomerular Filtration Rate 12.2 mL/min (>60) 11.1 mL/min (>60) Glucose Level 186 MG/DL (74-106) 263 MG/DL (74-106) Calcium Level 8.5 MG/DL (8.5-10.1) 8.2 MG/DL (8.5-10.1) Phosphorus Level 4.0 MG/DL (2.5-4.9) Magnesium Level 2.5 MG/DL (1.8-2.4) Total Bilirubin 0.4 MG/DL (0.2-1.0) 0.4 MG/DL (0.2-1.0) Gamma Glutamyl Transpeptidase 85 U/L (5-85) Aspartate Amino Transf (AST/SGOT) 234 U/L (15-37) 114 U/L (15-37) Alanine Aminotransferase (ALT/SGPT) 212 U/L (12-78) 186 U/L (12-78) Alkaline Phosphatase 362 U/L (46-116) 400 U/L (46-116) C-Reactive Protein, Quantitative 8.2 mg/dL (0.00-0.90) Pro-B-Type Natriuretic Peptide > 13272 pg/mL (0-125) Total Protein 6.1 G/DL (6.4-8.2) 6.9 G/DL (6.4-8.2) Albumin 1.8 G/DL (3.4-5.0) 2.0 G/DL (3.4-5.0) Globulin 4.3 g/dL 4.9 g/dL Albumin/Globulin Ratio 0.4 (1.0-2.7) 0.4 (1.0-2.7) Prothrombin Time 10.8 SEC (9.30-11.50) Prothromb Time International Ratio 1.0 (0.9-1.1) Activated Partial Thromboplast Time 33 SEC (23-33) Thyroid Stimulating Hormone (TSH) 2.479 uiU/mL (0.358-3.740) Free Thyroxine 1.22 NG/DL (0.76-1.46) Test 10/06/19 03:10 White Blood Count 15.7 K/UL (4.8-10.8) Red Blood Count 2.96 M/UL (4.20-5.40) Hemoglobin 9.2 G/DL (12.0-16.0) Hematocrit 25.9 % (37.0-47.0) Mean Corpuscular Volume 88 FL (80-99) Mean Corpuscular Hemoglobin 31.2 PG (27.0-31.0) Mean Corpuscular Hemoglobin Concent 35.7 G/DL (32.0-36.0) Red Cell Distribution Width 14.3 % (11.6-14.8) Platelet Count 164 K/UL (150-450) Mean Platelet Volume 5.1 FL (6.5-10.1) Neutrophils (%) (Auto) 77.8 % (45.0-75.0) Lymphocytes (%) (Auto) 18.8 % (20.0-45.0) Monocytes (%) (Auto) 2.3 % (1.0-10.0) Eosinophils (%) (Auto) 0.8 % (0.0-3.0) Basophils (%) (Auto) 0.4 % (0.0-2.0) Sodium Level 135 MMOL/L (136-145) Potassium Level 4.1 MMOL/L (3.5-5.1) Chloride Level 100 MMOL/L (98-107) Carbon Dioxide Level 22 MMOL/L (21-32) Anion Gap 13 mmol/L (5-15) Blood Urea Nitrogen 170 mg/dL (7-18) Creatinine 4.0 MG/DL (0.55-1.30) Estimat Glomerular Filtration Rate 10.8 mL/min (>60) Glucose Level 117 MG/DL (74-106) Calcium Level 8.7 MG/DL (8.5-10.1) Phosphorus Level 4.2 MG/DL (2.5-4.9) Magnesium Level 2.6 MG/DL (1.8-2.4) Iron Level 89 ug/dL (50-175) Total Iron Binding Capacity 110 ug/dL (250-450) Percent Iron Saturation 81 % (15-50) Unsaturated Iron Binding 21 ug/dL (112-346) Ferritin 860 NG/ML (8-388) Total Bilirubin 0.5 MG/DL (0.2-1.0) Aspartate Amino Transf (AST/SGOT) 152 U/L (15-37) Alanine Aminotransferase (ALT/SGPT) 162 U/L (12-78) Alkaline Phosphatase 337 U/L (46-116) Lactate Dehydrogenase 430 U/L (81-234) C-Reactive Protein, Quantitative 14.8 mg/dL (0.00-0.90) Pro-B-Type Natriuretic Peptide > 12017 pg/mL (0-125) Total Protein 6.5 G/DL (6.4-8.2) Albumin 1.9 G/DL (3.4-5.0) Globulin 4.6 g/dL Albumin/Globulin Ratio 0.4 (1.0-2.7) Vitamin B12 Level 1282 PG/ML (193-986) Folate 18.5 NG/ML (8.6-58.9) Height (Feet): 5 Height (Inches): 4.00 Weight (Pounds): 112 Objective Physical Exam vitals: reviewed gen: nad pulm: on trach+ / vent, decreased breath sounds left, chest tube+ cv: rrr, no gmr abd: sfot, nt, nd ++ gt ext: no cce Gio Rob MD Oct 06, 2019 20:44
[2019-10-07] VITALS (20 sets, daily range): BP systolic 103–176; BP diastolic 65–100
[2019-10-07] MEDS: Piperacillin/Tazobactam 2.25 GM in D5W 55 ML IVPB SCH ×3 (05:48→21:16)
[2019-10-07] MEDS: Levothyroxine 125mcg tab ORAL SCH (05:48)
[2019-10-07] MEDS: Renvela 800mg Pkt NG SCH ×3 (05:48→21:14)
--- NOTE | 2019-10-07 06:00 | Progress Note ---
DATE: 10/06/2019 CARDIOLOGY PROGRESS NOTE SUBJECTIVE: The patient is overall stable. No fevers. No bleeding. Liver function studies remain unchanged. Blood pressure is quite labile at times, go up to 200 systolic. PHYSICAL EXAMINATION: LUNGS: Thin secretions. CARDIAC: Regular rhythm and rate. Normal S1, S2. ABDOMEN: Soft. EXTREMITIES: No edema. IMPRESSION: 1. Hypertension, remains uncontrolled. 2. Transaminitis remains a concern. 3. End-stage renal disease with possible need for new permacath; otherwise, all parameters without change. 4. Healthcare-associated pneumonia. 5. Respiratory failure with tracheostomy PLAN: Continue on immunosuppressive therapy. Antimicrobials. Advance antihypertensive. Hemodialysis with ultrafiltration. Surveillance cultures. Permacath replacement to follow. Abel Stubbs M.D. DR: BOOM JOB#: [id number] CC:
--- NOTE | 2019-10-07 06:12 | Hematology/Onc Progress Note ---
Assessment/Plan Assessment/Plan # Thrombocytopenia ow THROMBOCYTOSIS - potential causes multifactorial, evaluate liver and viral etiologies to begin, in this case due to sepsis with septic shock also with cirrhosis and liver disease --> Hep panel and HIV ordered --> neg --> US abd to evaluate for cirrhosis and hsm ordered --> reviewed --> Peripheral smear ordered to evaluate for blasts /schistocytes --> none noted --> abx and other meds have been reviewed --> ok for ppx if plt >50k w/ either heparin or lovenox --> Transfuse if Plt < 20k and fever, or if Plt < 10k without fever --> okay for permacath change once plt better--> for 08/14 --> plt trend: 43-->83-->237k-->292-->341-->315-->388 -->444-->530-->252k-->344- >529->525k-->273 # Anemia of chronic disease due to underlying chronic medical issues, multifactorial v Gi bleed --> Anemia workup has been ordered, rule out gi bleed --> No evidence of hemolysis is noted, peripheral smear has been reviewed. --> Hgb goal >7. Transfuse prn. --> Epogen has been started --> HOLD OFF IRON ferritin is >1000 --> Medications have been reviewed --> low threshold for gi evaluation in case has occult + --> hgb 9-->6.7-->9.2 -->10.5-->10.6 -->10.7-->10-->10.5-->9.8-->10.4-->9.5--> 3.6-->9.6-->9.7-->10-->10.3-->11->9.9->8.3->8.7-->8.1-->8.9-->7.4->9.2 --> blood tx: 08/11, 08/31, 10/03 --> CT Chest r/o hemothorax --> does show confirmation of a large left hemothorax. Complete atelectasis of the left lower lobe and partial left upper lobe atelectasis demonstrated. Mild rightward shift of the heart and mediastinum. --> stool ob negative # Leukocytosis with Sepsis with shock. --> abx as per id, recs noted--> off abx --> pressors as needed --> IS now on steriods # Healthcare-associated pneumonia. --> recs reviewed --> abx: jung/micafungin-->jung-->off --> 08/24 chest: moderate left pleural effusion # Severe protein-calorie malnutrition. --> nutritional support # End-stage renal disease --> had as renal hd --> with permacath # History of hypertension. --> per cards, now with Bradycardia. # Resp failure s/p vent/trach # HypoThyroid # Ngt feedings # Dvt ppx scd's The timing of this note does not necessarily reflect the time of the patient was seen. Greatly appreciate consultation. Subjective Constitutional: Denies: no symptoms, chills, fever, malaise, weakness, other HEENT: Denies: no symptoms, eye pain, blurred vision, tearing, double vision, ear pain, ear discharge, nose pain, nose congestion, throat pain, throat swelling, mouth pain, mouth swelling, other Cardiovascular: Denies: no symptoms, chest pain, edema, irregular heart rate, lightheadedness, palpitations, syncope, other Respiratory: Denies: no symptoms, cough, shortness of breath, SOB with excertion, SOB at rest, sputum, wheezing, other Gastrointestinal/Abdominal: Denies: no symptoms, abdomen distended, abdominal pain, black stools, tarry stools, blood in stool, constipated, diarrhea, difficulty swallowing, nausea, poor appetite, poor fluid intake, rectal bleeding , vomiting, other Genitourinary: Denies: no symptoms, burning, discharge, frequency, flank pain, hematuria, incontinence, pain, urgency, other Neurologic/Psychiatric: Denies: no symptoms, anxiety, depressed, emotional problems, headache, numbness, paresthesia, pre-existing deficit, seizure, tingling, tremors, weakness, other Endocrine: Denies: no symptoms, excessive sweating, flushing, intolerance to cold, intolerance to heat, increased hunger, increased thirst, increased urine, unexplained weight gain, unexplained weight loss, other Hematologic/Lymphatic: Denies: no symptoms, anemia, easy bleeding, easy bruising, adenopathy, other Allergies: Coded Allergies: VANCOMYCIN (Unverified Allergy, Unknown, 08/02/19) Subjective 08/11: no bleeding or chills, labs reviewed, no major bleeding, plt less than 50k 08/12: icu, s/p blood, hgb improved to 9.2, 08/14: icu, pending consent for thora and permacath, labs reviewed 08/15: new permacath placed, no bleeding, for hd, plt much improved, started lovenox sq 08/16: ett to be adjusted, bp on high end, micafungin started, possible bronch 08/17: weaning as per pulm, no events otherwise, labs noted 08/18: no events no bleeding, remains confused on vent, for hd 08/20: icu, failed to wean, labs reviewed, jung 08/21: resting in bed, no overnight events, labs reviewed 08/22: awake, confused, restraints, no overnight events 08/23: no events, no bleeding, on ppi bid 08/24: icu, failed to wean, labs reviewed 08/25: no overnight events, us chest, restraints, afebrile 08/26 difficult in weaning, nad, seen by surg, pulm labs noted 08/27 awake on restraints, thoracentesis for am, labs reviewed 08/29 no bleeding, no night sweats, no major changes, on ppi bid 08/30 no major events, remains on vent, no bleeding, dw pcp 08/31 hgb dropped to 3.6, has been transfused with prbc, in icu, david Rn, ct chest pend 09/01 no major events, no bleeding, labs noted, hgb remains low, hgb 9.6 09/03 lethargic, left chest tube dry/intact, off abx, vent 09/04 remains on a vent, synthroid, labs reviewed 09/05 awake and alert, no acute events, hgb 9.8, no new orders 09/06 no bleeding or chills, labs noted, no major events overnight, david rn 09/07 no events, no night sweats, no bleeding, no fc, remains agitated in the am 09/08 remains in the icu, trach was done, on vent, abx off, on epo 09/10 transferred to sdu, restraints, vent, labs reviewed 09/11 tube feeds have been ongoing, no f/c, labs reviewed 09/12 no events, no bleeding, no night sweats, hgb 10 09/13 tsh is improved, remains confused, hgb is 11, no bleeding 09/14 no events, no bleeding, labs noted, vitals stable 09/15 confused, no acute events, restraints, dc planning 09/17 no new changes, no recent labs, placement pending 09/18 no events, no bleeding, no night sweats, fevers 09/19 nonverbal, vent, elevated bp, off abx 09/20 labs reviewed, dw rn, no bleeding, meds reviewed 09/21 is a+o x 1, nonverbal, no bleeding, labs reviewed, no night sweats 09/22 no major events, no bleeding, no night sweats, no f/c, labs noted hgb 10.5 09/25 no events, no bleeding, labs noted, cbc reviewed 09/26 no events, with gtube feeds ongoing and with event, labs noted 09/27 labs have been reviewed, no night sweats, no fc 09/28 labs reviewed, no night sweats, hgb lower, but holding off on transfusion 09/29 alert, stool ob negative, h/h stable, dc planning 10/01 sdu, tsh improved, labs reviewed, elevated bp 10/02 no major events, no bleeding, labs reviewed, hgb 8, nv 10/03 no changes, labs reviewed, cbc noted, no bleeding, hgb 6.7, to get 1 unit prbc 10/04 labs noted, no bleeding epogen has been started, hgb 7.4, on epo 10/05 labs have been reviewed, no bleeding, hg low, no bleeding, confused 10/06 remains confused, romansh speaking, with right abigail intact Objective Objective Current Medications Medications (Trade) Dose Ordered Sig/Javier Route PRN Reason Start Time Stop Time Status Last Admin Dose Admin Amlodipine Besylate (Norvasc) 5 mg BID ORAL 09/25/19 09:00 10/25/19 08:59 10/06/19 18:19 Azathioprine (Imuran) 50 mg DAILY ORAL 10/05/19 09:00 01/03/20 08:59 10/06/19 09:04 Chlorhexidine Gluconate (Nae-Hex 2%) 1 applic DAILY@2000 TOPIC 09/17/19 20:00 12/16/19 19:59 10/06/19 20:32 Clonidine HCl (Catapres Tab) 0.1 mg Q4H PRN ORAL For High Blood Pressure 09/22/19 21:00 12/21/19 20:59 10/06/19 20:35 Dextrose (Dextrose 50%) 25 ml Q30M PRN IV Hypoglycemia 09/02/19 06:15 12/01/19 06:14 09/04/19 12:11 Dextrose (Dextrose 50%) 50 ml Q30M PRN IV Hypoglycemia 09/02/19 06:15 12/01/19 06:14 Doxazosin Mesylate (Cardura) 2 mg EVERY 12 HOURS GT 10/07/19 09:00 11/06/19 08:59 Epoetin Thomas (Epoetin Thomas-EPBX(NON ESRD)) 4,000 unit THU-THU-THU SUBQ 10/05/19 21:00 01/03/20 20:59 10/05/19 20:38 Lansoprazole (Prevacid) 30 mg BID GT 10/06/19 18:00 10/27/19 08:59 10/06/19 18:20 Levothyroxine Sodium (Synthroid) 125 mcg DAILY@0630 ORAL 09/22/19 06:30 10/22/19 06:29 10/07/19 05:48 Losartan Potassium (Cozaar) 100 mg DAILY GT 10/06/19 09:00 11/05/19 08:59 10/06/19 09:04 Metoprolol Tartrate (Lopressor) 25 mg Q12HR ORAL 10/01/19 09:00 12/30/19 08:59 10/06/19 09:04 Piperacillin Sod/ Tazobactam Sod 2.25 gm/Dextrose 55 ml @ 110 mls/hr Q8HR IVPB 10/06/19 06:00 10/11/19 05:59 10/07/19 05:48 Prednisone (predniSONE) 30 mg DAILY ORAL 10/03/19 09:00 11/02/19 08:59 10/06/19 09:03 Psyllium Hydrophilic Mucilloid (Metamucil) 1 pkt DAILY ORAL 4/9/20 15:00 10/22/19 14:59 10/06/19 09:05 Sevelamer Carbonate (Renvela) 800 mg Q8HR NG 09/25/19 14:00 12/24/19 13:59 10/07/19 05:48 Last 24 Hour Vital Signs Date Time Temp Pulse Resp B/P (MAP) Pulse Ox O2 Delivery O2 Flow Rate FiO2 10/07/19 05:14 55 18 21 10/07/19 04:00 21 10/07/19 04:00 97.9 69 20 158/70 (99) 100 10/07/19 04:00 Mechanical Ventilator 10/07/19 03:20 63 19 21 10/07/19 01:13 56 18 21 10/07/19 00:00 Mechanical Ventilator 10/07/19 00:00 21 10/07/19 00:00 97.5 70 18 157/65 (95) 99 10/06/19 23:53 57 10/06/19 23:10 59 18 21 10/06/19 21:00 66 18 21 10/06/19 20:35 184/91 10/06/19 20:32 57 174/90 10/06/19 20:00 Mechanical Ventilator 10/06/19 20:00 21 10/06/19 20:00 97.0 61 18 183/79 (113) 98 10/06/19 19:23 60 10/06/19 19:00 61 18 21 10/06/19 18:19 71 167/98 10/06/19 16:00 71 10/06/19 16:00 Mechanical Ventilator 10/06/19 16:00 97.5 69 20 167/98 (121) 97 10/06/19 16:00 21 10/06/19 15:43 71 20 21 10/06/19 12:06 Mechanical Ventilator 10/06/19 12:00 97.0 55 18 153/74 (100) 99 10/06/19 12:00 21 10/06/19 11:36 61 10/06/19 11:03 57 18 21 10/06/19 11:03 100 10/06/19 09:04 178/90 10/06/19 09:04 63 178/90 10/06/19 09:03 63 178/90 10/06/19 08:13 63 18 21 10/06/19 08:00 96.8 86 18 178/90 (119) 97 10/06/19 08:00 21 10/06/19 08:00 Mechanical Ventilator 10/06/19 07:54 70 10/06/19 04:00 66 10/06/19 04:00 Mechanical Ventilator 10/06/19 04:00 97.4 64 18 159/86 (110) 99 10/06/19 04:00 21 10/06/19 03:29 59 18 21 10/06/19 01:58 197/82 10/06/19 00:00 57 10/06/19 00:00 Mechanical Ventilator 10/06/19 00:00 97.6 63 20 197/82 (120) 99 10/06/19 00:00 21 10/05/19 23:30 66 20 21 10/05/19 20:51 202/98 10/05/19 20:09 70 159/90 10/05/19 20:00 Mechanical Ventilator 10/05/19 20:00 97.1 74 18 158/80 (106) 100 10/05/19 20:00 21 10/05/19 19:30 56 18 21 10/05/19 19:10 71 10/05/19 18:40 98.0 70 19 158/59 (92) 99 10/05/19 16:01 98.2 74 19 164/66 (98) 99 10/05/19 16:00 21 10/05/19 16:00 Mechanical Ventilator 10/05/19 15:24 80 10/05/19 15:00 72 18 21 10/05/19 12:26 Mechanical Ventilator 10/05/19 12:00 21 10/05/19 12:00 98.7 81 17 156/82 (106) 99 10/05/19 11:35 78 10/05/19 10:55 77 18 Mechanical Ventilator 21 10/05/19 08:25 168/104 10/05/19 08:25 80 168/104 10/05/19 08:24 80 168/104 10/05/19 08:00 98.9 80 18 168/104 (125) 100 10/05/19 08:00 Mechanical Ventilator 10/05/19 08:00 21 10/05/19 07:47 82 10/05/19 07:35 81 19 95 Mechanical Ventilator 21 79 18 Intake and Output 10/06/19 10/07/19 19:00 07:00 Intake Total 835 ml 430 ml Output Total 550 ml Balance 285 ml 430 ml Intake Free Water 230 ml 60 ml IV Total 55 ml Tube Feeding 385 ml 315 ml Other 220 ml Output Urine Total 550 ml # Bowel Movements 2 Labs Test 10/04/19 08:20 10/05/19 03:00 10/05/19 08:30 10/06/19 03:10 White Blood Count 13.1 K/UL (4.8-10.8) 21.2 K/UL (4.8-10.8) 25.8 K/UL (4.8-10.8) 15.7 K/UL (4.8-10.8) Red Blood Count 2.84 M/UL (4.20-5.40) 2.36 M/UL (4.20-5.40) 2.39 M/UL (4.20-5.40) 2.96 M/UL (4.20-5.40) Hemoglobin 8.7 G/DL (12.0-16.0) 7.4 G/DL (12.0-16.0) 7.4 G/DL (12.0-16.0) 9.2 G/DL (12.0-16.0) Hematocrit 25.1 % (37.0-47.0) 20.9 % (37.0-47.0) 21.2 % (37.0-47.0) 25.9 % (37.0-47.0) Mean Corpuscular Volume 88 FL (80-99) 88 FL (80-99) 89 FL (80-99) 88 FL (80- 99) Mean Corpuscular Hemoglobin 30.5 PG (27.0-31.0) 31.2 PG (27.0-31.0) 30.9 PG (27.0-31.0) 31.2 PG (27.0-31.0) Mean Corpuscular Hemoglobin Concent 34.6 G/DL (32.0-36.0) 35.3 G/DL (32.0-36.0) 34.8 G/DL (32.0-36.0) 35.7 G/DL (32.0-36.0) Red Cell Distribution Width 15.1 % (11.6-14.8) 15.2 % (11.6-14.8) 15.4 % (11.6-14.8) 14.3 % (11.6-14.8) Platelet Count 208 K/UL (150-450) 204 K/UL (150-450) 191 K/UL (150-450) 164 K/UL (150-450) Mean Platelet Volume 5.1 FL (6.5-10.1) 5.4 FL (6.5-10.1) 5.2 FL (6.5-10.1) 5.1 FL (6.5-10.1) Neutrophils (%) (Auto) 73.4 % (45.0-75.0) % (45.0-75.0) % (45.0-75.0) 77.8 % (45.0-75.0) Lymphocytes (%) (Auto) 23.4 % (20.0-45.0) % (20.0-45.0) % (20.0-45.0) 18.8 % (20.0-45.0) Monocytes (%) (Auto) 2.3 % (1.0-10.0) % (1.0-10.0) % (1.0-10.0) 2.3 % (1.0-10.0) Eosinophils (%) (Auto) 0.6 % (0.0-3.0) % (0.0-3.0) % (0.0-3.0) 0.8 % (0.0-3.0) Basophils (%) (Auto) 0.3 % (0.0-2.0) % (0.0-2.0) % (0.0-2.0) 0.4 % (0.0-2.0) Differential Total Cells Counted 100 100 Neutrophils % (Manual) 86 % (45-75) 91 % (45-75) Lymphocytes % (Manual) 12 % (20-45) 6 % (20-45) Monocytes % (Manual) 2 % (1-10) 2 % (1-10) Eosinophils % (Manual) 0 % (0-3) 1 % (0-3) Basophils % (Manual) 0 % (0-2) 0 % (0-2) Band Neutrophils 0 % (0-8) 0 % (0-8) Platelet Estimate Adequate Adequate Platelet Morphology Normal Normal Prothrombin Time 10.8 SEC (9.30-11.50) Prothromb Time International Ratio 1.0 (0.9-1.1) Activated Partial Thromboplast Time 33 SEC (23-33) Sodium Level 139 MMOL/L (136-145) 135 MMOL/L (136-145) Potassium Level 3.9 MMOL/L (3.5-5.1) 4.1 MMOL/L (3.5-5.1) Chloride Level 102 MMOL/L (98-107) 100 MMOL/L (98-107) Carbon Dioxide Level 21 MMOL/L (21-32) 22 MMOL/L (21-32) Anion Gap 16 mmol/L (5-15) 13 mmol/L (5-15) Blood Urea Nitrogen 157 mg/dL (7-18) 170 mg/dL (7-18) Creatinine 3.9 MG/DL (0.55-1.30) 4.0 MG/DL (0.55-1.30) Estimat Glomerular Filtration Rate 11.1 mL/min (>60) 10.8 mL/min (>60) Glucose Level 263 MG/DL (74-106) 117 MG/DL (74-106) Calcium Level 8.2 MG/DL (8.5-10.1) 8.7 MG/DL (8.5-10.1) Total Bilirubin 0.4 MG/DL (0.2-1.0) 0.5 MG/DL (0.2-1.0) Aspartate Amino Transf (AST/SGOT) 114 U/L (15-37) 152 U/L (15-37) Alanine Aminotransferase (ALT/SGPT) 186 U/L (12-78) 162 U/L (12-78) Alkaline Phosphatase 400 U/L (46-116) 337 U/L (46-116) Total Protein 6.9 G/DL (6.4-8.2) 6.5 G/DL (6.4-8.2) Albumin 2.0 G/DL (3.4-5.0) 1.9 G/DL (3.4-5.0) Globulin 4.9 g/dL 4.6 g/dL Albumin/Globulin Ratio 0.4 (1.0-2.7) 0.4 (1.0-2.7) Thyroid Stimulating Hormone (TSH) 2.479 uiU/mL (0.358-3.740) Free Thyroxine 1.22 NG/DL (0.76-1.46) Phosphorus Level 4.2 MG/DL (2.5-4.9) Magnesium Level 2.6 MG/DL (1.8-2.4) Iron Level 89 ug/dL (50-175) Total Iron Binding Capacity 110 ug/dL (250-450) Percent Iron Saturation 81 % (15-50) Unsaturated Iron Binding 21 ug/dL (112-346) Ferritin 860 NG/ML (8-388) Lactate Dehydrogenase 430 U/L (81-234) C-Reactive Protein, Quantitative 14.8 mg/dL (0.00-0.90) Pro-B-Type Natriuretic Peptide > 67496 pg/mL (0-125) Vitamin B12 Level 1282 PG/ML (193-986) Folate 18.5 NG/ML (8.6-58.9) Test 10/07/19 05:39 Height (Feet): 5 Height (Inches): 4.00 Weight (Pounds): 112 Objective Physical Exam vitals: reviewed gen: nad pulm: on trach+ / vent, decreased breath sounds left, chest tube+ cv: rrr, no gmr abd: sfot, nt, nd ++ gt ext: no cce Gio Rob MD Oct 07, 2019 06:12
[2019-10-07 06:24] LABS: BASOPHILS % (AUTO) 0.4 % (0.0-2.0); EOSINOPHILS % (AUTO) 0.5 % (0.0-3.0); HEMATOCRIT 26.2 % (37.0-47.0); HEMOGLOBIN 9.3 G/DL (12.0-16.0); LYMPHOCYTES % (AUTO) 27.1 % (20.0-45.0); MEAN CORPUSCULAR VOLUME 87 FL (80-99); MONOCYTES % (AUTO) 2.3 % (1.0-10.0); NEUTROPHILS % (AUTO) 69.6 % (45.0-75.0); PLATELET COUNT 180 K/UL (150-450); RED BLOOD COUNT 3.01 M/UL (4.20-5.40); RED CELL DISTRIBUTION WIDTH 14.4 % (11.6-14.8); WHITE BLOOD COUNT 11.1 K/UL (4.8-10.8)
[2019-10-07 07:18] LABS: ALANINE AMINOTRANSFERASE 202 U/L (12-78); ALBUMIN 1.7 G/DL (3.4-5.0); ALBUMIN/GLOBULIN RATIO 0.4 (1.0-2.7); ALKALINE PHOSPHATASE 379 U/L (46-116); ANION GAP 16 mmol/L (5-15); ASPARTATE AMINO TRANSFERASE 190 U/L (15-37); BILIRUBIN,TOTAL 0.5 MG/DL (0.2-1.0); BLOOD UREA NITROGEN 182 mg/dL (7-18); CALCIUM 7.9 MG/DL (8.5-10.1); CARBON DIOXIDE 21 MMOL/L (21-32); CHLORIDE 101 MMOL/L (98-107); CREATININE 4.1 MG/DL (0.55-1.30); GAMMA GLUTAMYL TRANSPEPTIDASE 91 U/L (5-85); PHOSPHORUS 3.7 MG/DL (2.5-4.9); POTASSIUM 3.8 MMOL/L (3.5-5.1); SODIUM 138 MMOL/L (136-145)
--- NOTE | 2019-10-07 08:26 | General Progress Note ---
Assessment/Plan Problem List: (1) Failure to thrive (0-17) ICD Codes: R62.51 - Failure to thrive (0-17) SNOMED: 102588040 (2) Hypertensive kidney disease ICD Codes: I12.9 - Hypertensive chronic kidney disease with stage 1 through stage 4 chronic kidney disease, or unspecified chronic kidney disease SNOMED: 91193727 (3) Pneumonia ICD Codes: J18.9 - Pneumonia, unspecified organism SNOMED: 393972297 Qualifiers: Qualified Codes: J18.9 - Pneumonia, unspecified organism (4) ESRD (end stage renal disease) ICD Codes: N18.6 - End stage renal disease SNOMED: 29116988 (5) Septic arthritis ICD Codes: M00.9 - Pyogenic arthritis, unspecified SNOMED: 032570656 (6) Thrombocytopenia ICD Codes: D69.6 - Thrombocytopenia, unspecified SNOMED: 548613944 (7) Hypotension ICD Codes: I95.9 - Hypotension, unspecified SNOMED: 09571148 Qualifiers: Qualified Codes: I95.3 - Hypotension of hemodialysis (8) Malnutrition ICD Codes: E46 - Unspecified protein-calorie malnutrition SNOMED: 79682616 Status: stable, not improved, unchanged, deteriorating Assessment/Plan: Continue vent support. Wean as able. Suctioning and pulmonary toilet. Continue G-tube feedings. Monitor residuals Continue current blood pressure regimen with close monitoring of blood pressure. Hemodialysis with ultrafiltration per nephrology. Turn every 2 hours and good skin care. monitor labs/lfts steroids per GI. monitor wbc iv abx monitor h/h d.w . repeat cultures. needs perm cath if cleared by ID. Discharge planning in progress Subjective ROS Limited/Unobtainable: No Constitutional: Reports: malaise, weakness HEENT: Reports: no symptoms Cardiovascular: Reports: no symptoms Respiratory: Reports: shortness of breath, sputum Gastrointestinal/Abdominal: Reports: difficulty swallowing Genitourinary: Reports: no symptoms Neurologic/Psychiatric: Reports: anxiety, pre-existing deficit Endocrine: Reports: no symptoms Hematologic/Lymphatic: Reports: anemia Allergies: Coded Allergies: VANCOMYCIN (Unverified Allergy, Unknown, 08/02/19) All Systems: reviewed and negative except above Subjective There were no overnight events. Patient remains stable on the ventilator. She occasionally opens her eyes. Tolerating feedings. LFTS less. wbc down.. ?due to steroids vs infection. no fevers. no signs of bleeding. on iv zosyn for possible pna Objective Last 24 Hour Vital Signs Date Time Temp Pulse Resp B/P (MAP) Pulse Ox O2 Delivery O2 Flow Rate FiO2 10/07/19 05:14 55 18 21 10/07/19 04:00 21 10/07/19 04:00 60 10/07/19 04:00 97.9 69 20 158/70 (99) 100 10/07/19 04:00 Mechanical Ventilator 10/07/19 03:20 63 19 21 10/07/19 01:13 56 18 21 10/07/19 00:00 Mechanical Ventilator 10/07/19 00:00 21 10/07/19 00:00 97.5 70 18 157/65 (95) 99 10/06/19 23:53 57 10/06/19 23:10 59 18 21 10/06/19 21:00 66 18 21 10/06/19 20:35 184/91 10/06/19 20:32 57 174/90 10/06/19 20:00 Mechanical Ventilator 10/06/19 20:00 21 10/06/19 20:00 97.0 61 18 183/79 (113) 98 10/06/19 19:23 60 10/06/19 19:00 61 18 21 10/06/19 18:19 71 167/98 10/06/19 16:00 71 10/06/19 16:00 Mechanical Ventilator 10/06/19 16:00 97.5 69 20 167/98 (121) 97 10/06/19 16:00 21 10/06/19 15:43 71 20 21 10/06/19 12:06 Mechanical Ventilator 10/06/19 12:00 97.0 55 18 153/74 (100) 99 10/06/19 12:00 21 10/06/19 11:36 61 10/06/19 11:03 57 18 21 10/06/19 11:03 100 10/06/19 09:04 178/90 10/06/19 09:04 63 178/90 10/06/19 09:03 63 178/90 Intake and Output 10/06/19 10/07/19 19:00 07:00 Intake Total 835 ml 530 ml Output Total 550 ml 400 ml Balance 285 ml 130 ml Intake Free Water 230 ml 70 ml IV Total 110 ml Tube Feeding 385 ml 350 ml Other 220 ml Output Urine Total 550 ml 400 ml # Bowel Movements 2 1 Laboratory Tests 10/07/19 05:39: White Blood Count 11.1H, Red Blood Count 3.01L, Hemoglobin 9.3L, Hematocrit 26.2L, Mean Corpuscular Volume 87, Mean Corpuscular Hemoglobin 30.9, Mean Corpuscular Hemoglobin Concent 35.5, Red Cell Distribution Width 14.4, Platelet Count 180, Mean Platelet Volume 5.8L, Neutrophils (%) (Auto) 69.6, Lymphocytes ( %) (Auto) 27.1, Monocytes (%) (Auto) 2.3, Eosinophils (%) (Auto) 0.5, Basophils (%) (Auto) 0.4, Sodium Level 138, Potassium Level 3.8, Chloride Level 101, Carbon Dioxide Level 21, Anion Gap 16H, Blood Urea Nitrogen 182H, Creatinine 4.1H, Estimat Glomerular Filtration Rate 10.5, Glucose Level 145H, Calcium Level 7.9L, Phosphorus Level 3.7, Magnesium Level 2.6H, Total Bilirubin 0.5, Gamma Glutamyl Transpeptidase 91H, Aspartate Amino Transf (AST/SGOT) 190H, Alanine Aminotransferase (ALT/SGPT) 202H, Alkaline Phosphatase 379H, C-Reactive Protein, Quantitative 9.5H, Total Protein 6.3L, Albumin 1.7L, Globulin 4.6, Albumin/Globulin Ratio 0.4L Height (Feet): 5 Height (Inches): 4.00 Weight (Pounds): 112 Objective General Appearance: WD/WN, awake. looks around. no distress. thin and frail Neck: supple +trach Cardiovascular: normal rate Respiratory/Chest: rhonchi - bilaterally Abdomen: normal bowel sounds, non tender, soft, no organomegaly Edema: no edema noted Arm (L), no edema noted Arm (R), no edema noted Leg (L), no edema noted Leg (R), no edema noted Pedal (L), no edema noted Pedal (R), no edema noted Generalized Neurologic: disoriented, aphasia Skin: +excoriations Nate Beltran MD Oct 07, 2019 08:26
--- NOTE | 2019-10-07 08:32 | Critical Care Progress Note ---
Assessment/Plan Assessment/Plan respiratory failure hypoxemia chronic renal failure toxic met encephalopathy severe protein calorie malnutrition cachexia left lung whiteout/collapse, anemia pulmonary edema + pleural effusion anasarca s/p CT placement and removal s/p trach hypernatremia leukocytosis ulcerative esophagitis PLAN trach care as is repeat CXR next week wbc improved and monitor care noted and reviewed monitor for fluid retention and effusions reviewed care and continue to monitor weaning unable renal follow up and dialysis prognosis poor overall for change keep negative close follow up discussed elevated head and monitor ROM watch fluid status and keep negative nutrition and monitor residuals doubt any significant improvement off load as able and monitor skin exam ROM as able and monitor contractures prognosis poor for recovery will need LTAC impression, plan, and exam edited and reviewed in detail care discussed with prick stitcher - Subjective Interval Events: wbc low on vent reduced LOC care noted feeds on ROS Limited/Unobtainable: Yes Condition: unchanged EKG Rhythm: Sinus Rhythm Residuals: minimal Tube Feeding Tolerated: yes I&O: Intake and Output 10/06/19 10/07/19 19:00 07:00 Intake Total 835 ml 530 ml Output Total 550 ml 400 ml Balance 285 ml 130 ml Intake Free Water 230 ml 70 ml IV Total 110 ml Tube Feeding 385 ml 350 ml Other 220 ml Output Urine Total 550 ml 400 ml # Bowel Movements 2 1 Critical Care - Objective ET-Tube: 7.0 ET Position: 19 Last 24 Hour Vital Signs Date Time Temp Pulse Resp B/P (MAP) Pulse Ox O2 Delivery O2 Flow Rate FiO2 10/07/19 05:14 55 18 21 10/07/19 04:00 21 10/07/19 04:00 60 10/07/19 04:00 97.9 69 20 158/70 (99) 100 10/07/19 04:00 Mechanical Ventilator 10/07/19 03:20 63 19 21 10/07/19 01:13 56 18 21 10/07/19 00:00 Mechanical Ventilator 10/07/19 00:00 21 10/07/19 00:00 97.5 70 18 157/65 (95) 99 10/06/19 23:53 57 10/06/19 23:10 59 18 21 10/06/19 21:00 66 18 21 10/06/19 20:35 184/91 10/06/19 20:32 57 174/90 10/06/19 20:00 Mechanical Ventilator 10/06/19 20:00 21 10/06/19 20:00 97.0 61 18 183/79 (113) 98 10/06/19 19:23 60 10/06/19 19:00 61 18 21 10/06/19 18:19 71 167/98 10/06/19 16:00 71 10/06/19 16:00 Mechanical Ventilator 10/06/19 16:00 97.5 69 20 167/98 (121) 97 10/06/19 16:00 21 10/06/19 15:43 71 20 21 10/06/19 12:06 Mechanical Ventilator 10/06/19 12:00 97.0 55 18 153/74 (100) 99 10/06/19 12:00 21 10/06/19 11:36 61 10/06/19 11:03 57 18 21 10/06/19 11:03 100 10/06/19 09:04 178/90 10/06/19 09:04 63 178/90 10/06/19 09:03 63 178/90 Labs: Labs Test 10/05/19 03:00 10/05/19 08:30 10/06/19 03:10 10/07/19 05:39 White Blood Count 21.2 K/UL (4.8-10.8) 25.8 K/UL (4.8-10.8) 15.7 K/UL (4.8-10.8) 11.1 K/UL (4.8-10.8) Red Blood Count 2.36 M/UL (4.20-5.40) 2.39 M/UL (4.20-5.40) 2.96 M/UL (4.20-5.40) 3.01 M/UL (4.20-5.40) Hemoglobin 7.4 G/DL (12.0-16.0) 7.4 G/DL (12.0-16.0) 9.2 G/DL (12.0-16.0) 9.3 G/DL (12.0-16.0) Hematocrit 20.9 % (37.0-47.0) 21.2 % (37.0-47.0) 25.9 % (37.0-47.0) 26.2 % (37.0-47.0) Mean Corpuscular Volume 88 FL (80-99) 89 FL (80-99) 88 FL (80-99) 87 FL (80- 99) Mean Corpuscular Hemoglobin 31.2 PG (27.0-31.0) 30.9 PG (27.0-31.0) 31.2 PG (27.0-31.0) 30.9 PG (27.0-31.0) Mean Corpuscular Hemoglobin Concent 35.3 G/DL (32.0-36.0) 34.8 G/DL (32.0-36.0) 35.7 G/DL (32.0-36.0) 35.5 G/DL (32.0-36.0) Red Cell Distribution Width 15.2 % (11.6-14.8) 15.4 % (11.6-14.8) 14.3 % (11.6-14.8) 14.4 % (11.6-14.8) Platelet Count 204 K/UL (150-450) 191 K/UL (150-450) 164 K/UL (150-450) 180 K/UL (150-450) Mean Platelet Volume 5.4 FL (6.5-10.1) 5.2 FL (6.5-10.1) 5.1 FL (6.5-10.1) 5.8 FL (6.5-10.1) Neutrophils (%) (Auto) % (45.0-75.0) % (45.0-75.0) 77.8 % (45.0-75.0) 69.6 % (45.0-75.0) Lymphocytes (%) (Auto) % (20.0-45.0) % (20.0-45.0) 18.8 % (20.0-45.0) 27.1 % (20.0-45.0) Monocytes (%) (Auto) % (1.0-10.0) % (1.0-10.0) 2.3 % (1.0-10.0) 2.3 % (1.0-10.0) Eosinophils (%) (Auto) % (0.0-3.0) % (0.0-3.0) 0.8 % (0.0-3.0) 0.5 % (0.0-3.0) Basophils (%) (Auto) % (0.0-2.0) % (0.0-2.0) 0.4 % (0.0-2.0) 0.4 % (0.0-2.0) Differential Total Cells Counted 100 100 Neutrophils % (Manual) 86 % (45-75) 91 % (45-75) Lymphocytes % (Manual) 12 % (20-45) 6 % (20-45) Monocytes % (Manual) 2 % (1-10) 2 % (1-10) Eosinophils % (Manual) 0 % (0-3) 1 % (0-3) Basophils % (Manual) 0 % (0-2) 0 % (0-2) Band Neutrophils 0 % (0-8) 0 % (0-8) Platelet Estimate Adequate Adequate Platelet Morphology Normal Normal Prothrombin Time 10.8 SEC (9.30-11.50) Prothromb Time International Ratio 1.0 (0.9-1.1) Activated Partial Thromboplast Time 33 SEC (23-33) Sodium Level 139 MMOL/L (136-145) 135 MMOL/L (136-145) 138 MMOL/L (136-145) Potassium Level 3.9 MMOL/L (3.5-5.1) 4.1 MMOL/L (3.5-5.1) 3.8 MMOL/L (3.5-5.1) Chloride Level 102 MMOL/L (98-107) 100 MMOL/L (98-107) 101 MMOL/L (98-107) Carbon Dioxide Level 21 MMOL/L (21-32) 22 MMOL/L (21-32) 21 MMOL/L (21-32) Anion Gap 16 mmol/L (5-15) 13 mmol/L (5-15) 16 mmol/L (5-15) Blood Urea Nitrogen 157 mg/dL (7-18) 170 mg/dL (7-18) 182 mg/dL (7-18) Creatinine 3.9 MG/DL (0.55-1.30) 4.0 MG/DL (0.55-1.30) 4.1 MG/DL (0.55-1.30) Estimat Glomerular Filtration Rate 11.1 mL/min (>60) 10.8 mL/min (>60) 10.5 mL/min (>60) Glucose Level 263 MG/DL (74-106) 117 MG/DL (74-106) 145 MG/DL (74-106) Calcium Level 8.2 MG/DL (8.5-10.1) 8.7 MG/DL (8.5-10.1) 7.9 MG/DL (8.5-10.1) Total Bilirubin 0.4 MG/DL (0.2-1.0) 0.5 MG/DL (0.2-1.0) 0.5 MG/DL (0.2-1.0) Aspartate Amino Transf (AST/SGOT) 114 U/L (15-37) 152 U/L (15-37) 190 U/L (15-37) Alanine Aminotransferase (ALT/SGPT) 186 U/L (12-78) 162 U/L (12-78) 202 U/L (12-78) Alkaline Phosphatase 400 U/L (46-116) 337 U/L (46-116) 379 U/L (46-116) Total Protein 6.9 G/DL (6.4-8.2) 6.5 G/DL (6.4-8.2) 6.3 G/DL (6.4-8.2) Albumin 2.0 G/DL (3.4-5.0) 1.9 G/DL (3.4-5.0) 1.7 G/DL (3.4-5.0) Globulin 4.9 g/dL 4.6 g/dL 4.6 g/dL Albumin/Globulin Ratio 0.4 (1.0-2.7) 0.4 (1.0-2.7) 0.4 (1.0-2.7) Thyroid Stimulating Hormone (TSH) 2.479 uiU/mL (0.358-3.740) Free Thyroxine 1.22 NG/DL (0.76-1.46) Phosphorus Level 4.2 MG/DL (2.5-4.9) 3.7 MG/DL (2.5-4.9) Magnesium Level 2.6 MG/DL (1.8-2.4) 2.6 MG/DL (1.8-2.4) Iron Level 89 ug/dL (50-175) Total Iron Binding Capacity 110 ug/dL (250-450) Percent Iron Saturation 81 % (15-50) Unsaturated Iron Binding 21 ug/dL (112-346) Ferritin 860 NG/ML (8-388) Lactate Dehydrogenase 430 U/L (81-234) C-Reactive Protein, Quantitative 14.8 mg/dL (0.00-0.90) 9.5 mg/dL (0.00-0.90) Pro-B-Type Natriuretic Peptide > 75913 pg/mL (0-125) Vitamin B12 Level 1282 PG/ML (193-986) Folate 18.5 NG/ML (8.6-58.9) Gamma Glutamyl Transpeptidase 91 U/L (5-85) Objective: WDWN NAD trach in place reduced breath sounds without rhonchi or wheeze [id number] without MRG NABS nontender no HSM no CCE contractures feeding tube in place no distention reduced LOC and weak nonfocal cachectic reviewed and edited Micro: Microbiology Date/Time Source Procedure Growth Status 10/05/19 16:50 Blood Blood Culture - Preliminary NO GROWTH AFTER 24 HOURS Resulted 10/05/19 10:30 Blood Blood Culture - Preliminary NO GROWTH AFTER 24 HOURS Resulted 10/05/19 11:05 Nasopharynx Coronavirus COVID-19 PCR ([facility]) - Final Complete Accucheck: 89 Malcolm Cruz MD Oct 07, 2019 08:32
[2019-10-07] MEDS: Doxazosin 1mg Tab GT SCH ×2 (09:52→21:14)
[2019-10-07] MEDS: Losartan 50mg tab GT SCH (09:53)
[2019-10-07] MEDS: azaTHIOprine 50 MG TAB ORAL SCH (09:53)
[2019-10-07] MEDS: Metamucil Pkt ORAL SCH (09:58)
--- NOTE | 2019-10-07 10:59 | Infectious Diseases Prog Note ---
Assessment/Plan Assessment/Plan antibiotics : zosyn A 1. pneumonia COVID 19 negative 2. right shoulder septic arthritis with staph aureus s/p rx 3. pleural effusion 4. thrombocytopenia resolved 7. diabetes mellitus 8. hypertension 9. respiratory failure 9. leucocytosis improving P 1. continue zosyn 2. will follow up cultures 3. sputum culture Subjective ROS Limited/Unobtainable: Yes Allergies: Coded Allergies: VANCOMYCIN (Unverified Allergy, Unknown, 08/02/19) Objective Vital Signs Last 24 Hour Vital Signs Date Time Temp Pulse Resp B/P (MAP) Pulse Ox O2 Delivery O2 Flow Rate FiO2 10/07/19 10:20 100 10/07/19 10:20 59 18 21 10/07/19 09:58 58 174/74 10/07/19 09:53 174/74 10/07/19 09:00 57 10/07/19 08:08 61 18 21 10/07/19 05:14 55 18 21 10/07/19 04:00 21 10/07/19 04:00 60 10/07/19 04:00 97.9 69 20 158/70 (99) 100 10/07/19 04:00 Mechanical Ventilator 10/07/19 03:20 63 19 21 10/07/19 01:13 56 18 21 10/07/19 00:00 Mechanical Ventilator 10/07/19 00:00 21 10/07/19 00:00 97.5 70 18 157/65 (95) 99 10/06/19 23:53 57 10/06/19 23:10 59 18 21 10/06/19 21:00 66 18 21 10/06/19 20:35 184/91 10/06/19 20:32 57 174/90 10/06/19 20:00 Mechanical Ventilator 10/06/19 20:00 21 10/06/19 20:00 97.0 61 18 183/79 (113) 98 10/06/19 19:23 60 10/06/19 19:00 61 18 21 10/06/19 18:19 71 167/98 10/06/19 16:00 71 10/06/19 16:00 Mechanical Ventilator 10/06/19 16:00 97.5 69 20 167/98 (121) 97 10/06/19 16:00 21 10/06/19 15:43 71 20 21 10/06/19 12:06 Mechanical Ventilator 10/06/19 12:00 97.0 55 18 153/74 (100) 99 10/06/19 12:00 21 10/06/19 11:36 61 10/06/19 11:03 57 18 21 10/06/19 11:03 100 Height (Feet): 5 Height (Inches): 4.00 Weight (Pounds): 112 HEENT: status post trach Respiratory/Chest: lungs clear Cardiovascular: normal rate, regular rhythm, no gallop/murmur Abdomen: soft, non tender, other - Gt Extremities: no edema, other - right groin catheter Microbiology Date/Time Source Procedure Growth Status 10/05/19 16:50 Blood Blood Culture - Preliminary NO GROWTH AFTER 24 HOURS Resulted 10/05/19 10:30 Blood Blood Culture - Preliminary NO GROWTH AFTER 24 HOURS Resulted 10/05/19 11:05 Nasopharynx Coronavirus COVID-19 PCR ([facility]) - Final Complete Laboratory Tests Test 10/07/19 05:39 White Blood Count 11.1 K/UL (4.8-10.8) H Red Blood Count 3.01 M/UL (4.20-5.40) L Hemoglobin 9.3 G/DL (12.0-16.0) L Hematocrit 26.2 % (37.0-47.0) L Mean Corpuscular Volume 87 FL (80-99) Mean Corpuscular Hemoglobin 30.9 PG (27.0-31.0) Mean Corpuscular Hemoglobin Concent 35.5 G/DL (32.0-36.0) Red Cell Distribution Width 14.4 % (11.6-14.8) Platelet Count 180 K/UL (150-450) Mean Platelet Volume 5.8 FL (6.5-10.1) L Neutrophils (%) (Auto) 69.6 % (45.0-75.0) Lymphocytes (%) (Auto) 27.1 % (20.0-45.0) Monocytes (%) (Auto) 2.3 % (1.0-10.0) Eosinophils (%) (Auto) 0.5 % (0.0-3.0) Basophils (%) (Auto) 0.4 % (0.0-2.0) Sodium Level 138 MMOL/L (136-145) Potassium Level 3.8 MMOL/L (3.5-5.1) Chloride Level 101 MMOL/L (98-107) Carbon Dioxide Level 21 MMOL/L (21-32) Anion Gap 16 mmol/L (5-15) H Blood Urea Nitrogen 182 mg/dL (7-18) H Creatinine 4.1 MG/DL (0.55-1.30) H Estimat Glomerular Filtration Rate 10.5 mL/min (>60) Glucose Level 145 MG/DL (74-106) H Calcium Level 7.9 MG/DL (8.5-10.1) L Phosphorus Level 3.7 MG/DL (2.5-4.9) Magnesium Level 2.6 MG/DL (1.8-2.4) H Total Bilirubin 0.5 MG/DL (0.2-1.0) Gamma Glutamyl Transpeptidase 91 U/L (5-85) H Aspartate Amino Transf (AST/SGOT) 190 U/L (15-37) H Alanine Aminotransferase (ALT/SGPT) 202 U/L (12-78) H Alkaline Phosphatase 379 U/L (46-116) H C-Reactive Protein, Quantitative 9.5 mg/dL (0.00-0.90) H Total Protein 6.3 G/DL (6.4-8.2) L Albumin 1.7 G/DL (3.4-5.0) L Globulin 4.6 g/dL Albumin/Globulin Ratio 0.4 (1.0-2.7) L Current Medications Medications (Trade) Dose Ordered Sig/Javier Route PRN Reason Start Time Stop Time Status Last Admin Dose Admin Amlodipine Besylate (Norvasc) 5 mg BID ORAL 09/25/19 09:00 10/25/19 08:59 10/07/19 09:58 Azathioprine (Imuran) 50 mg DAILY ORAL 10/05/19 09:00 01/03/20 08:59 10/07/19 09:53 Chlorhexidine Gluconate (Nae-Hex 2%) 1 applic DAILY@1999 TOPIC 09/17/19 20:00 12/16/19 19:59 10/06/19 20:32 Clonidine HCl (Catapres Tab) 0.1 mg Q4H PRN ORAL For High Blood Pressure 09/22/19 21:00 12/21/19 20:59 10/06/19 20:35 Dextrose (Dextrose 50%) 25 ml Q30M PRN IV Hypoglycemia 09/02/19 06:15 12/01/19 06:14 09/04/19 12:11 Dextrose (Dextrose 50%) 50 ml Q30M PRN IV Hypoglycemia 09/02/19 06:15 12/01/19 06:14 Doxazosin Mesylate (Cardura) 2 mg EVERY 12 HOURS GT 10/07/19 09:00 11/06/19 08:59 10/07/19 09:52 Epoetin Thomas (Epoetin Thomas-EPBX(NON ESRD)) 4,000 unit THU-THU-THU SUBQ 10/05/19 21:00 01/03/20 20:59 10/05/19 20:38 Lansoprazole (Prevacid) 30 mg BID GT 10/06/19 18:00 10/27/19 08:59 10/07/19 09:53 Levothyroxine Sodium (Synthroid) 125 mcg DAILY@0630 ORAL 09/22/19 06:30 10/22/19 06:29 10/07/19 05:48 Losartan Potassium (Cozaar) 100 mg DAILY GT 10/06/19 09:00 11/05/19 08:59 10/07/19 09:53 Metoprolol Tartrate (Lopressor) 25 mg Q12HR ORAL 10/01/19 09:00 12/30/19 08:59 10/06/19 09:04 Piperacillin Sod/ Tazobactam Sod 2.25 gm/Dextrose 55 ml @ 110 mls/hr Q8HR IVPB 10/06/19 06:00 10/11/19 05:59 10/07/19 05:48 Prednisone (predniSONE) 30 mg DAILY ORAL 10/03/19 09:00 11/02/19 08:59 10/07/19 09:53 Psyllium Hydrophilic Mucilloid (Metamucil) 1 pkt DAILY ORAL 09/22/19 15:00 10/22/19 14:59 10/07/19 09:58 Sevelamer Carbonate (Renvela) 800 mg Q8HR NG 09/25/19 14:00 12/24/19 13:59 10/07/19 05:48 Melissa Solares MD Oct 07, 2019 10:59
--- NOTE | 2019-10-07 11:43 | Nephrology Progress Note ---
Assessment/Plan Problem List: (1) Liver enzyme elevation Assessment: Acute (2) ESRD (end stage renal disease) on dialysis (3) Malnutrition (4) Anemia in CKD (chronic kidney disease) (5) Hypotension (6) Thrombocytopenia (7) Sepsis Assessment: klebsiella in blood Assessment -Early sepsis with shock. -Healthcare-associated pneumonia. -Severe protein-calorie malnutrition. -Thrombocytopenia. - End-stage renal disease. - History of hypertension. - Bradycardia. - HypoThyroid Plan On prednisone and Imuran Had 2 sets of blood culture October 04 Chest x-ray suggests new infiltrate: Right perihilar infiltrate, new since prior study of 09/21/2019 Hemodialysis done October 02, next hemodialysis October 06 Will order tunnel catheter placement Previously patient white blood cell counts mario, unclear if it is due to steroids or an underlying infectious process Smooth muscle antibody positive, Ig G elevated Liver enzymes elevated but declining Tracheostomy September 07 Last dialysis September 26, next dialysis today October 02 Chest tube on the left side was put in on September 01 was discontinued September 07 Patient transfused 3 units of packed RBCs for low hemoglobin Remains full code Blood pressure fluctuating, will start hydralazine via NG tube for blood pressure Magnesium and potassium supplement intravenously as needed Patient underwent PEG placement August 16 patient remains intubated on ventilator Discussed with RN Aim to wean from ventilator or consider tracheostomy Permacath was removed on August 12 Dialysis 08/11 Transfusion as needed Patient had hematemesis meds IV as possible Surveillance blood cultures tomorrow Plan to put the permacath back in on Thursday if cultures are negative keep BP and BS in check Inflammatory markers per orders Subjective ROS Limited/Unobtainable: Yes Objective Objective Last 24 Hour Vital Signs Date Time Temp Pulse Resp B/P (MAP) Pulse Ox O2 Delivery O2 Flow Rate FiO2 10/07/19 10:20 100 10/07/19 10:20 59 18 21 10/07/19 09:58 58 174/74 10/07/19 09:53 174/74 10/07/19 09:00 57 10/07/19 08:08 61 18 21 10/07/19 08:00 Mechanical Ventilator 10/07/19 08:00 61 10/07/19 08:00 21 10/07/19 08:00 96.8 57 18 174/74 (107) 100 10/07/19 05:14 55 18 21 10/07/19 04:00 21 10/07/19 04:00 60 10/07/19 04:00 97.9 69 20 158/70 (99) 100 10/07/19 04:00 Mechanical Ventilator 10/07/19 03:20 63 19 21 10/07/19 01:13 56 18 21 10/07/19 00:00 Mechanical Ventilator 10/07/19 00:00 21 10/07/19 00:00 97.5 70 18 157/65 (95) 99 10/06/19 23:53 57 10/06/19 23:10 59 18 21 10/06/19 21:00 66 18 21 10/06/19 20:35 184/91 10/06/19 20:32 57 174/90 10/06/19 20:00 Mechanical Ventilator 10/06/19 20:00 21 10/06/19 20:00 97.0 61 18 183/79 (113) 98 10/06/19 19:23 60 10/06/19 19:00 61 18 21 10/06/19 18:19 71 167/98 10/06/19 16:00 71 10/06/19 16:00 Mechanical Ventilator 10/06/19 16:00 97.5 69 20 167/98 (121) 97 10/06/19 16:00 21 10/06/19 15:43 71 20 21 10/06/19 12:06 Mechanical Ventilator 10/06/19 12:00 97.0 55 18 153/74 (100) 99 10/06/19 12:00 21 Intake and Output 10/06/19 10/07/19 19:00 07:00 Intake Total 835 ml 530 ml Output Total 550 ml 400 ml Balance 285 ml 130 ml Intake Free Water 230 ml 70 ml IV Total 110 ml Tube Feeding 385 ml 350 ml Other 220 ml Output Urine Total 550 ml 400 ml # Bowel Movements 2 1 Laboratory Tests 10/07/19 05:39: White Blood Count 11.1H, Red Blood Count 3.01L, Hemoglobin 9.3L, Hematocrit 26.2L, Mean Corpuscular Volume 87, Mean Corpuscular Hemoglobin 30.9, Mean Corpuscular Hemoglobin Concent 35.5, Red Cell Distribution Width 14.4, Platelet Count 180, Mean Platelet Volume 5.8L, Neutrophils (%) (Auto) 69.6, Lymphocytes ( %) (Auto) 27.1, Monocytes (%) (Auto) 2.3, Eosinophils (%) (Auto) 0.5, Basophils (%) (Auto) 0.4, Sodium Level 138, Potassium Level 3.8, Chloride Level 101, Carbon Dioxide Level 21, Anion Gap 16H, Blood Urea Nitrogen 182H, Creatinine 4.1H, Estimat Glomerular Filtration Rate 10.5, Glucose Level 145H, Calcium Level 7.9L, Phosphorus Level 3.7, Magnesium Level 2.6H, Total Bilirubin 0.5, Gamma Glutamyl Transpeptidase 91H, Aspartate Amino Transf (AST/SGOT) 190H, Alanine Aminotransferase (ALT/SGPT) 202H, Alkaline Phosphatase 379H, C-Reactive Protein, Quantitative 9.5H, Total Protein 6.3L, Albumin 1.7L, Globulin 4.6, Albumin/Globulin Ratio 0.4L Height (Feet): 5 Height (Inches): 4.00 Weight (Pounds): 112 General Appearance: no apparent distress Neck: other - Trach and vent Respiratory/Chest: decreased breath sounds Abdomen: soft, other - PEG Objective no change William Blackwood MD Oct 07, 2019 11:43
--- NOTE | 2019-10-07 13:25 | General Progress Note ---
Assessment/Plan Status: stable, not improved, unchanged, deteriorating Assessment/Plan: Assessment - Severe ulcerative esophagitis - mild elevation in LFT, Hepatitis B/C negative --> now sudden rise - ? related to new 1.9 cm mass near GB - ? autoimmune / high ESR - abnormal liver on CT - ? chronic disease / fibrosis - Resp failure - trach - s/p recent Chest tube and removal - Renal failure - aspiration risk --> s/p PEG - anemia - bradycardia - Poor prognosis Recommendations - CT reviewed -? shock liver. Repeat in am>>> improving - check autoimmune markers - pending>>> neg JOLIE - check AFP - GT care - water flushes - elevate HOB - monitor H&H - ppi -check stool ob>>>positive>>> ordered one more>>>seconf one neg patient poor candidate for GI procedures - vent -patient not a candidate for liver biopsy -given elevated SM Ab and igg, neg hepatitis panel >>>started prednisone 30 mg Day #6 - imuran #2 -fu LFTS will send viral serolgy tomorrow if lfts rise again Subjective ROS Limited/Unobtainable: No Allergies: Coded Allergies: VANCOMYCIN (Unverified Allergy, Unknown, 08/02/19) Subjective s/p blood transfusion Objective Last 24 Hour Vital Signs Date Time Temp Pulse Resp B/P (MAP) Pulse Ox O2 Delivery O2 Flow Rate FiO2 10/07/19 13:00 176/100 10/07/19 12:00 97.4 65 18 176/100 (125) 100 10/07/19 10:20 100 10/07/19 10:20 59 18 21 10/07/19 09:58 58 174/74 10/07/19 09:53 174/74 10/07/19 09:00 57 10/07/19 08:08 61 18 21 10/07/19 08:00 Mechanical Ventilator 10/07/19 08:00 61 10/07/19 08:00 21 10/07/19 08:00 96.8 57 18 174/74 (107) 100 10/07/19 05:14 55 18 21 10/07/19 04:00 21 10/07/19 04:00 60 10/07/19 04:00 97.9 69 20 158/70 (99) 100 10/07/19 04:00 Mechanical Ventilator 10/07/19 03:20 63 19 21 10/07/19 01:13 56 18 21 10/07/19 00:00 Mechanical Ventilator 10/07/19 00:00 21 10/07/19 00:00 97.5 70 18 157/65 (95) 99 10/06/19 23:53 57 10/06/19 23:10 59 18 21 10/06/19 21:00 66 18 21 10/06/19 20:35 184/91 10/06/19 20:32 57 174/90 10/06/19 20:00 Mechanical Ventilator 10/06/19 20:00 21 10/06/19 20:00 97.0 61 18 183/79 (113) 98 10/06/19 19:23 60 10/06/19 19:00 61 18 21 10/06/19 18:19 71 167/98 10/06/19 16:00 71 10/06/19 16:00 Mechanical Ventilator 10/06/19 16:00 97.5 69 20 167/98 (121) 97 10/06/19 16:00 21 10/06/19 15:43 71 20 21 Intake and Output 10/06/19 10/07/19 19:00 07:00 Intake Total 835 ml 530 ml Output Total 550 ml 400 ml Balance 285 ml 130 ml Intake Free Water 230 ml 70 ml IV Total 110 ml Tube Feeding 385 ml 350 ml Other 220 ml Output Urine Total 550 ml 400 ml # Bowel Movements 2 1 Laboratory Tests 10/07/19 05:39: White Blood Count 11.1H, Red Blood Count 3.01L, Hemoglobin 9.3L, Hematocrit 26.2L, Mean Corpuscular Volume 87, Mean Corpuscular Hemoglobin 30.9, Mean Corpuscular Hemoglobin Concent 35.5, Red Cell Distribution Width 14.4, Platelet Count 180, Mean Platelet Volume 5.8L, Neutrophils (%) (Auto) 69.6, Lymphocytes ( %) (Auto) 27.1, Monocytes (%) (Auto) 2.3, Eosinophils (%) (Auto) 0.5, Basophils (%) (Auto) 0.4, Sodium Level 138, Potassium Level 3.8, Chloride Level 101, Carbon Dioxide Level 21, Anion Gap 16H, Blood Urea Nitrogen 182H, Creatinine 4.1H, Estimat Glomerular Filtration Rate 10.5, Glucose Level 145H, Calcium Level 7.9L, Phosphorus Level 3.7, Magnesium Level 2.6H, Total Bilirubin 0.5, Gamma Glutamyl Transpeptidase 91H, Aspartate Amino Transf (AST/SGOT) 190H, Alanine Aminotransferase (ALT/SGPT) 202H, Alkaline Phosphatase 379H, C-Reactive Protein, Quantitative 9.5H, Total Protein 6.3L, Albumin 1.7L, Globulin 4.6, Albumin/Globulin Ratio 0.4L Height (Feet): 5 Height (Inches): 4.00 Weight (Pounds): 112 General Appearance: no apparent distress EENT: normal ENT inspection Neck: supple Cardiovascular: normal rate Respiratory/Chest: decreased breath sounds Abdomen: normal bowel sounds, non tender, soft Extremities: non-tender Kenny Rudolph MD Oct 07, 2019 13:25
--- NOTE | 2019-10-07 13:28 | Surgery Progress Note ---
Surgery Progress Note Subjective Procedure Performed 1. tracheostomy 2 removal of left tube thoracostomy Additional Comments leukocytosis improving h/h stable no acute events comfortable lfts trending down HD Objective Last 24 Hour Vital Signs Date Time Temp Pulse Resp B/P (MAP) Pulse Ox O2 Delivery O2 Flow Rate FiO2 10/07/19 13:00 176/100 10/07/19 12:00 97.4 65 18 176/100 (125) 100 10/07/19 10:20 100 10/07/19 10:20 59 18 21 10/07/19 09:58 58 174/74 10/07/19 09:53 174/74 10/07/19 09:00 57 10/07/19 08:08 61 18 21 10/07/19 08:00 Mechanical Ventilator 10/07/19 08:00 61 10/07/19 08:00 21 10/07/19 08:00 96.8 57 18 174/74 (107) 100 10/07/19 05:14 55 18 21 10/07/19 04:00 21 10/07/19 04:00 60 10/07/19 04:00 97.9 69 20 158/70 (99) 100 10/07/19 04:00 Mechanical Ventilator 10/07/19 03:20 63 19 21 10/07/19 01:13 56 18 21 10/07/19 00:00 Mechanical Ventilator 10/07/19 00:00 21 10/07/19 00:00 97.5 70 18 157/65 (95) 99 10/06/19 23:53 57 10/06/19 23:10 59 18 21 10/06/19 21:00 66 18 21 10/06/19 20:35 184/91 10/06/19 20:32 57 174/90 10/06/19 20:00 Mechanical Ventilator 10/06/19 20:00 21 10/06/19 20:00 97.0 61 18 183/79 (113) 98 10/06/19 19:23 60 10/06/19 19:00 61 18 21 10/06/19 18:19 71 167/98 10/06/19 16:00 71 10/06/19 16:00 Mechanical Ventilator 10/06/19 16:00 97.5 69 20 167/98 (121) 97 10/06/19 16:00 21 10/06/19 15:43 71 20 21 I&O Intake and Output 10/06/19 10/07/19 19:00 07:00 Intake Total 835 ml 530 ml Output Total 550 ml 400 ml Balance 285 ml 130 ml Intake Free Water 230 ml 70 ml IV Total 110 ml Tube Feeding 385 ml 350 ml Other 220 ml Output Urine Total 550 ml 400 ml # Bowel Movements 2 1 Dressing: other Wound: other Drains: other Cardiovascular: RSR Respiratory: decreased breath sounds Abdomen: soft, non-tender, present bowel sounds Extremities: no tenderness, no cyanosis Laboratory Tests Test 10/07/19 05:39 White Blood Count 11.1 K/UL (4.8-10.8) H Red Blood Count 3.01 M/UL (4.20-5.40) L Hemoglobin 9.3 G/DL (12.0-16.0) L Hematocrit 26.2 % (37.0-47.0) L Mean Corpuscular Volume 87 FL (80-99) Mean Corpuscular Hemoglobin 30.9 PG (27.0-31.0) Mean Corpuscular Hemoglobin Concent 35.5 G/DL (32.0-36.0) Red Cell Distribution Width 14.4 % (11.6-14.8) Platelet Count 180 K/UL (150-450) Mean Platelet Volume 5.8 FL (6.5-10.1) L Neutrophils (%) (Auto) 69.6 % (45.0-75.0) Lymphocytes (%) (Auto) 27.1 % (20.0-45.0) Monocytes (%) (Auto) 2.3 % (1.0-10.0) Eosinophils (%) (Auto) 0.5 % (0.0-3.0) Basophils (%) (Auto) 0.4 % (0.0-2.0) Sodium Level 138 MMOL/L (136-145) Potassium Level 3.8 MMOL/L (3.5-5.1) Chloride Level 101 MMOL/L (98-107) Carbon Dioxide Level 21 MMOL/L (21-32) Anion Gap 16 mmol/L (5-15) H Blood Urea Nitrogen 182 mg/dL (7-18) H Creatinine 4.1 MG/DL (0.55-1.30) H Estimat Glomerular Filtration Rate 10.5 mL/min (>60) Glucose Level 145 MG/DL (74-106) H Calcium Level 7.9 MG/DL (8.5-10.1) L Phosphorus Level 3.7 MG/DL (2.5-4.9) Magnesium Level 2.6 MG/DL (1.8-2.4) H Total Bilirubin 0.5 MG/DL (0.2-1.0) Gamma Glutamyl Transpeptidase 91 U/L (5-85) H Aspartate Amino Transf (AST/SGOT) 190 U/L (15-37) H Alanine Aminotransferase (ALT/SGPT) 202 U/L (12-78) H Alkaline Phosphatase 379 U/L (46-116) H C-Reactive Protein, Quantitative 9.5 mg/dL (0.00-0.90) H Total Protein 6.3 G/DL (6.4-8.2) L Albumin 1.7 G/DL (3.4-5.0) L Globulin 4.6 g/dL Albumin/Globulin Ratio 0.4 (1.0-2.7) L Assessment Post-op Diagnosis same Plan Problems: (1) Malnutrition Assessment & Plan: DAILY ESTIMATED NEEDS: Needs based on ESRD+ HD, underweight, wound/ 39.5kg 35-40 kcals/kg 8171-3941 total kcals 1.25-1.8 g protein/kg 49-71 g total protein 20-22 mL/kg 790-869 total fluid mLs NUTRITION DIAGNOSIS: * Increased kcal and protein needs r/t underweight status, HD needs, wuond healing as evidenced by pt is underweight per guidelines, ESRD, on HD, admitted non-blanching erythema wounds @ BL heels and sacrum * Swallowing difficulty R/T dysphagia as evidenced by GOLF SUPERINTENDENT recommends temporary nonoral feeding at this time, s/p NGT insertion, on NGT feeding-> now s/p self removal, NPO. CURRENT TF:NPO PO DIET RECOMMENDATIONS: WHEN SAFE FOR ORAL DIET -> renal/ texture per GOLF SUPERINTENDENT ENTERAL NUTRITION RECOMMENDATIONS: W/ GI access: Nepro @ 35ml/hr x 22 hrs to provide 770ml, 1386kcal, 62g prot, 560ml free water * W/ GI access, resume TF on Nepro * Initiate Nepro @ 15ml/hr x 6 hrs, advance 10ml q 4-6 hrs as tolerated to goal rate. * Hold 1 hour before and after Synthroid med * HOB over 30 degrees/ water flush per MD. ADDITIONAL RECOMMENDATIONS: 1) Calibrated bed scale wt for accurate CBW -> daily wt monitoring Per HD record: dry wt on 07/30=39.5kg (87lbs) 2) Wound care: (W/ GI access) add Nephorivte x 1 + Balta BID 3) Monitor NPO status: without GI access at this time, s/p pulling out NGT 4) Monitor for hypoglycemia while NPO 5) Monitor for continuity of HD (2) Septic arthritis Assessment & Plan: Pt presented on admission with generalized scaly rash . pt noted to be restless and scratching at skin. Bleeding from oral mucosa noted. Joint deformity noted to R shoulder. Surgical incision approximated with 11 sutures. Erythema but no exudate,or elevation in skin temp at site of incision. Historical incision R hip that is tunneled.Small amt seropurulent exudate noted. Periwound is erythematous,but no elevation in skin temp noted. No odor noted. Non-blanching erythema noted to sacrum. Perianal area is erythematous and excoriated. L heel is boggy with non-blanching erythema. R heel is soft with non-blanching erythema. No evidence of skin breakdown to all other bony prominences. Tx.plan: Cover R shoulder with Drsg and change daily and prn. Cleanse R hip wound with Saline. Apply Therahoney.Apply Cavilon Skin Barrier periwound. Cover with Optifoam drsg. Change every 3 days and prn. Apply Moisture Barrier Paste to perianal area and buttocks. Cover Sacrum with Optifoam drsg. Change every 3 days and prn. Apply Cavilon Skin Barrier to both heels. Cover each heel with Optifoam drsg. Change every 7 days and prn. APM/ELVIA Mattress overlay. Reposition at least every 2hours or as tolerated. Off-load heels with pillow. HD cath necessary HD as renal likely will need intubation 19 x 11 x 11 mm hypoechoic area in the liver adjacent to the gallbladder fossa. Although location is typical for area of focal sparing in a fatty liver, there are no findings to indicate fatty liver and this is a new finding since fairly recent previous exam. Therefore the possibility of a process such as small abscess should be considered. Atrophic echogenic kidneys Negative for gallstones or dilated bile ducts (3) Wound, open, hip or thigh with complication Assessment & Plan: slow healing will need nutritional optimization difficult ng tube peg when stable sutures removed from right shoulder comfortable wean vent may need trach (4) Abscess of right hip (5) possible septic arthritis (6) Renal failure (ARF), acute on chronic Assessment & Plan: cont HD will need tunneled cath placement okay to use fem line for now but will need change soon. line monitored and clean dressings going well (7) Pneumonia Assessment & Plan: intubated on vent support not tolerating weaning may need trach hemothorax likely after thoracentesis Chest CT noted Left chest tube placed With plan for trach chest tube can be considered but overall prognosis is very poor s/p trach left chest tub eout cxr noted and okay downgrade left pleural effusion dressings saturated will need to monitor. may need another chest tube as may not heal well on left side Anasarca, with as mentioned above diffuse edema of the soft tissues, trace ascites, and bilateral pleural effusions No hepatic abnormality to correlate with suspected small pericholecystic lesion in the liver described on recent sonogram. The lesion may be occult on noncontrast CT, may have been artifactual or may have resolved in the interim. Consider repeat sonography in a few days to assess progression No definite acute abdominal process otherwise Improved but still sizable left pleural effusion with minimal residual hemoperitoneum since prior CT scan of 09/01/2019. There is near complete atelectasis of the left lower lobe. There is a small right pleural effusion with atelectatic changes of the right lower lobe and right perihilar dense consolidation. These appear improved since a prior CT of 09/01/2019 Increased crazy paving type opacity within the right middle lobe since previous August [address], may reflect an area of increasing infiltrate, versus focal edema. There is also some dense consolidation of the perihilar right lower lobe which is improved since the previous August 31 CT Right groin temporary dialysis catheter in good position Atrophic kidneys, consistent with known history of chronic renal disease L2 compression fracture deformity, and advanced degenerative changes of the L2- L3 disc. Similar to prior study Marroquin catheter hold on repeat chest tube (8) Liver enzyme elevation Assessment & Plan: likely shock liver improving trend trending down will monitor Benyamini,Camilo Oct 07, 2019 13:28
[2019-10-07] MEDS ORDERED: Lidocaine 2% 20mg/ml/Epi 0.005mg/ml 20ml vial INJ PRN (13:29)
[2019-10-07] MEDS ORDERED: Heparin1,000 units/500ml Premix(Conc:2 units/ml) INJ PRN (13:29)
[2019-10-07] MEDS ORDERED: Heparin Sod 1000 units/ml 10ml INJ PRN (13:30)
[2019-10-07] MEDS ORDERED: Tubing Blood Filter IV ONE (14:53)
[2019-10-07] MEDS ORDERED: Tubing IV Secondary IV ONE (14:53)
[2019-10-07] MEDS ORDERED: NS 275ml ONE (14:53)
--- NOTE | 2019-10-07 15:13 | Pre-Procedure Note/Attestation ---
Pre-Procedure Note/Attestation Complete Prior to Procedure Planned Procedure: left Procedure Narrative: thoracentesis Indications for Procedure Pre-Operative Diagnosis: pleural effusion Attestation I attest that I discussed the nature of the procedure; its benefits; risks and complications; and alternatives (and the risks and benefits of such alternatives ), prior to the procedure, with the patient (or the patient's legal outbound sales representative). I attest that, if there was a reasonable possibility of needing a blood transfusion, the patient (or the patient's legal outbound sales representative) was given the [facility] Health Services standardized written summary, pursuant to the Carlos Justin Blood Safety Act ([place] Health and Safety Code # 1645, as amended). I attest that I re-evaluated the patient just prior to the surgery and that there has been no change in the patient's H&P, except as documented below: Discussed by phone with pt's. daughter Palmira at 1330 Sulaiman Hurtado MD Oct 07, 2019 15:13
--- NOTE | 2019-10-07 15:14 | Pre-Procedure Note/Attestation ---
Pre-Procedure Note/Attestation Complete Prior to Procedure Planned Procedure: not applicable Procedure Narrative: permacath Indications for Procedure Pre-Operative Diagnosis: Renal failure Attestation I attest that I discussed the nature of the procedure; its benefits; risks and complications; and alternatives (and the risks and benefits of such alternatives ), prior to the procedure, with the patient (or the patient's legal automobile sales representative). I attest that, if there was a reasonable possibility of needing a blood transfusion, the patient (or the patient's legal automobile sales representative) was given the [facility] of Health Services standardized written summary, pursuant to the Carlos Justin Blood Safety Act ([place] Health and Safety Code # 1645, as amended). I attest that I re-evaluated the patient just prior to the surgery and that there has been no change in the patient's H&P, except as documented below: Discussed by phone with pt's. claudio Chavis at 1330 on 10/07/2019 Sulaiman Hurtado MD Oct 07, 2019 15:14
--- NOTE | 2019-10-07 17:31 | Brief Operative Note ---
Immediate Post Operative Note Operative Note Pre-op Diagnosis: Renal failure Procedure: permacath R IJV Post-op Diagnosis: same Post-op Diagnosis: same as pre-op Surgeon: Ivan Joshua Anesthesia: local Specimen: none Complications: none Fluids: none Implant(s) used?: Yes - 19 cm BIOFLO catheter Sulaiman Joshua MD Oct 07, 2019 17:31
--- NOTE | 2019-10-07 17:32 | Brief Operative Note ---
Immediate Post Operative Note Operative Note Pre-op Diagnosis: Pleural effusion Procedure: L thoracentesis Post-op Diagnosis: same Surgeon: Ivan Quinn Anesthesia: local Specimen: yes - 50 ml fluid sent to lab Complications: none Condition: stable Fluids: none Implant(s) used?: No Sulaiman Quinn MD Oct 07, 2019 17:32
--- NOTE | 2019-10-07 17:38 | Diagnostic Imaging Report ---
Indication: Postthoracentesis Technique: One view of the chest Comparison: 10/05/2019 Findings: Interim decrease in previously demonstrated left pleural effusion. No pneumothorax. Right lung demonstrates some perihilar infiltrate which is slightly decreased. Interim placement of a right jugular tunneled dialysis catheter. Impression: Status post thoracentesis. No radiographically evident complication. There is suggestion of some residual pleural fluid Satisfactory position of tunneled dialysis catheter Persistent but slightly decreased right perihilar infiltrate
--- NOTE | 2019-10-07 18:55 | Diagnostic Imaging Report ---
Indications: Pleural effusion Technique: Ultrasound used to localize optimal puncture site. Sterile prepping and draping left chest. Local anesthesia with 1% lidocaine. Under real-time ultrasound guidance, puncture pleural space using thoracentesis needle. Stylet removed. Catheter placed to vacuum bottle suction. Total 550 milliliters of and dark cem fluid aspirated. Patient tolerated procedure well, without immediate complication. A specimen was sent to the lab Findings: Followup sonography demonstrates a small amount of residual pleural fluid Impression: Successful ultrasound-guided thoracentesis, yielding 550 milliliters of fluid
--- NOTE | 2019-10-07 20:44 | Diagnostic Imaging Report ---
Indications: Needs long-term dialysis access Technique: Patient was noted to be already on antibiotics. Total sterile technique, including sterile probe cover and sterile gel, sterile gloves, hand hygiene, hat, mask,, sterile gown, large sterile drape, and preparation with 2% chlorhexidine utilized. Local anesthesia with 1% lidocaine. Under real-time ultrasound guidance, puncture right internal jugular vein using 21-gauge micropuncture needle, passage 0.018 guidewire, exchange for 4 Fijian micropuncture introducer. The guidewire was used to measure the appropriate catheter length, and was removed. The sheath was left in place. The subcutaneous tract was then anesthetized with 1% lidocaine. A chest dermatotomy was made . The tunneling device was used to pull a 14.5 Fijian 19 cm BioFlo catheter through the subcutaneous tunnel to the neck dermatotomy. A guidewire was passed through the neck introducer into the inferior vena cava, and serial dilators were passed over it, followed by the introduction of a 14.5 Fijian peel-away sheath. The catheter was then introduced into the sheath, the peel-away sheath was removed. Digital radiograph documents satisfactory catheter tip position in the high right atrium, no kinking at the insertion site. Both catheter ports aspirated and flushed. Catheter was fixed to the skin. Patient tolerated procedure well without immediate complication. Total fluoroscopy time 72.4 seconds. Total dose area product [id number] [id number] Total number of images-one Comparison: None. Findings: Completion radiograph documents satisfactory position and course of the catheter, catheter tip at the cavoatrial junction. Impression: Successful placement of right transjugular tunneled dialysis catheter, as described above
[2019-10-07] MEDS: Dyna-Hex 2% Top Sol 2oz TOPIC SCH (21:13)
[2019-10-07] MEDS: Epoetin Alfa-EPBX (NON ESRD)4000 units/ml vial SUBQ SCH (21:15)
[2019-10-08] VITALS: BP 135/72
[2019-10-08 04:00] VITALS: BP 144/73
[2019-10-08 04:13] LABS: BASOPHILS % (AUTO) 0.2 % (0.0-2.0); EOSINOPHILS % (AUTO) 0.1 % (0.0-3.0); HEMATOCRIT 29.4 % (37.0-47.0); LYMPHOCYTES % (AUTO) 28.7 % (20.0-45.0); MEAN CORPUSCULAR VOLUME 89 FL (80-99); MONOCYTES % (AUTO) 1.1 % (1.0-10.0); PLATELET COUNT 175 K/UL (150-450); RED BLOOD COUNT 3.32 M/UL (4.20-5.40); RED CELL DISTRIBUTION WIDTH 14.3 % (11.6-14.8); WHITE BLOOD COUNT 7.7 K/UL (4.8-10.8)
--- NOTE | 2019-10-08 04:30 | Progress Note ---
DATE: 10/07/2019 CARDIOLOGY PROGRESS NOTE SUBJECTIVE: The patient remains on ventilator support. Status post left thoracentesis with 50 mL of fluid removed. She is also status post PermCath in the right jugular vein. PHYSICAL EXAMINATION: VITAL SIGNS: Blood pressure 138/70, pulse 60, respiratory rate 19, afebrile. LUNGS: Thin trach secretions. Bilateral breath sounds. HEART: Regular rhythm and rate. Normal S1, S2. ABDOMEN: Soft. EXTREMITIES: No edema. PermCath site clean and dry. LABORATORY AND DIAGNOSTIC DATA: BUN 182, creatinine 4.1, magnesium 2.6. Liver function studies remain elevated in the 200 range. Albumin 1.7. White count 11. Hemoglobin 9.3. IMPRESSION: 1. Respiratory failure. 2. End-stage renal disease. 3. 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 4. Acute on chronic diastolic congestive heart failure. 5. Hypertensive heart disease. 6. Hypothyroidism. 7. Sinus bradycardia. 8. Healthcare-acquired pneumonia. PLAN: 1. Hemodialysis with ultrafiltration. 2. Antimicrobials. 3. Ventilator support with weaning efforts. 4. Respiratory hygiene. 5. Follow up results of thoracentesis. 6. Discharge planning. 7. Maintain adequate thyroid replacement and euthyroid state. Abel Stubbs M.D. DR: Lety JOB#: [id number] CC:
[2019-10-08 04:51] LABS: ALANINE AMINOTRANSFERASE 172 U/L (12-78); ALBUMIN/GLOBULIN RATIO 0.4 (1.0-2.7); ALKALINE PHOSPHATASE 380 U/L (46-116); ANION GAP 17 mmol/L (5-15); ASPARTATE AMINO TRANSFERASE 120 U/L (15-37); BILIRUBIN,TOTAL 0.5 MG/DL (0.2-1.0); BLOOD UREA NITROGEN 191 mg/dL (7-18); CALCIUM 8.6 MG/DL (8.5-10.1); CARBON DIOXIDE 22 MMOL/L (21-32); CHLORIDE 98 MMOL/L (98-107); CREATININE 4.4 MG/DL (0.55-1.30); POTASSIUM 4.3 MMOL/L (3.5-5.1); SODIUM 137 MMOL/L (136-145)
[2019-10-08] MEDS: Piperacillin/Tazobactam 2.25 GM in D5W 55 ML IVPB SCH ×3 (06:11→21:17)
[2019-10-08] MEDS: Renvela 800mg Pkt NG SCH ×3 (06:11→21:16)
[2019-10-08] MEDS: Levothyroxine 125mcg tab ORAL SCH (06:11)
[2019-10-08 08:00] VITALS: BP 165/75
[2019-10-08] MEDS: Losartan 50mg tab GT SCH (08:30)
[2019-10-08] MEDS: Metamucil Pkt ORAL SCH (08:30)
[2019-10-08] MEDS: Doxazosin 1mg Tab GT SCH ×2 (08:30→21:15)
[2019-10-08] MEDS: azaTHIOprine 50 MG TAB ORAL SCH (08:31)
[2019-10-08 09:25] LABS: PHOSPHORUS 5.3 MG/DL (2.5-4.9)
--- NOTE | 2019-10-08 10:26 | Nephrology Progress Note ---
Assessment/Plan Problem List: (1) Liver enzyme elevation Assessment: Acute (2) ESRD (end stage renal disease) on dialysis (3) Malnutrition (4) Anemia in CKD (chronic kidney disease) (5) Hypotension (6) Thrombocytopenia (7) Sepsis Assessment: klebsiella in blood Assessment -Early sepsis with shock. -Healthcare-associated pneumonia. -Severe protein-calorie malnutrition. -Thrombocytopenia. - End-stage renal disease. - History of hypertension. - Bradycardia. - HypoThyroid Plan On prednisone and Imuran Will adjust blood pressure medicationS Had 2 sets of blood culture October 04, culture results are negative Chest x-ray suggests new infiltrate: Right perihilar infiltrate, new since prior study of 09/21/2019 Hemodialysis done October 02, next hemodialysis October 06 which was delayed to October 07 Patient had a right upper chest tunneled catheter placed October 06 Previously patient white blood cell counts mario, unclear if it is due to steroids or an underlying infectious process Smooth muscle antibody positive, Ig G elevated Liver enzymes elevated but declining Tracheostomy September 07 Last dialysis September 26, next dialysis today October 02 Chest tube on the left side was put in on September 01 was discontinued September 07 Patient transfused 3 units of packed RBCs for low hemoglobin Remains full code Blood pressure fluctuating, will start hydralazine via NG tube for blood pressure Magnesium and potassium supplement intravenously as needed Patient underwent PEG placement August 16 patient remains intubated on ventilator Discussed with RN Aim to wean from ventilator or consider tracheostomy Permacath was removed on August 12 Dialysis 08/11 Transfusion as needed Patient had hematemesis meds IV as possible Surveillance blood cultures tomorrow Plan to put the permacath back in on Thursday if cultures are negative keep BP and BS in check Inflammatory markers per orders Subjective ROS Limited/Unobtainable: Yes Objective Objective Last 24 Hour Vital Signs Date Time Temp Pulse Resp B/P (MAP) Pulse Ox O2 Delivery O2 Flow Rate FiO2 10/08/19 08:33 57 10/08/19 08:32 57 165/75 10/08/19 08:30 165/75 10/08/19 08:01 55 10/08/19 08:00 97.6 57 20 165/75 (105) 98 10/08/19 07:45 60 19 21 10/08/19 04:00 51 10/08/19 04:00 Mechanical Ventilator 10/08/19 04:00 21 10/08/19 04:00 97.1 55 20 144/73 (96) 100 55 10/08/19 03:15 51 18 21 10/08/19 00:00 97.0 59 18 135/72 (93) 98 50 10/08/19 00:00 51 10/08/19 00:00 Mechanical Ventilator 10/07/19 23:03 48 18 21 10/07/19 21:14 60 138/70 10/07/19 20:00 60 10/07/19 20:00 97.0 59 19 138/70 (92) 98 10/07/19 20:00 Mechanical Ventilator 10/07/19 20:00 21 10/07/19 18:49 60 18 21 10/07/19 18:03 61 119/67 10/07/19 17:01 57 18 21 10/07/19 16:55 59 19 133/80 (97) 100 10/07/19 16:50 62 19 130/71 (90) 100 10/07/19 16:45 58 19 106/66 (79) 100 10/07/19 16:40 69 19 106/68 (81) 100 10/07/19 16:35 61 19 112/79 (90) 100 10/07/19 16:30 62 19 114/72 (86) 100 10/07/19 16:27 62 19 10/07/19 16:25 63 19 121/77 (92) 100 10/07/19 16:20 76 19 115/80 (92) 100 10/07/19 16:15 65 19 125/76 (92) 100 10/07/19 16:10 67 19 120/72 (88) 100 10/07/19 16:05 69 19 122/76 (91) 100 10/07/19 16:00 21 10/07/19 16:00 Mechanical Ventilator 10/07/19 16:00 71 19 148/88 (108) 100 10/07/19 16:00 61 10/07/19 15:55 67 19 143/76 (98) 97 10/07/19 15:35 56 21 10/07/19 14:46 53 18 21 10/07/19 13:00 176/100 10/07/19 12:00 Mechanical Ventilator 10/07/19 12:00 21 10/07/19 12:00 97.4 65 18 176/100 (125) 100 10/07/19 11:47 59 Intake and Output 10/07/19 10/08/19 19:00 07:00 Intake Total 380 ml 640 ml Output Total 225 ml 200 ml Balance 155 ml 440 ml Intake Free Water 100 ml 180 ml IV Total 110 ml Tube Feeding 280 ml 350 ml Output Urine Total 225 ml 200 ml # Bowel Movements 1 1 Laboratory Tests 10/08/19 03:00: White Blood Count 7.7, Red Blood Count 3.32L, Hemoglobin 10.0L, Hematocrit 29.4L , Mean Corpuscular Volume 89, Mean Corpuscular Hemoglobin 30.2, Mean Corpuscular Hemoglobin Concent 34.1, Red Cell Distribution Width 14.3, Platelet Count 175, Mean Platelet Volume 5.7L, Neutrophils (%) (Auto) 70.0, Lymphocytes ( %) (Auto) 28.7, Monocytes (%) (Auto) 1.1, Eosinophils (%) (Auto) 0.1, Basophils (%) (Auto) 0.2, Sodium Level 137, Potassium Level 4.3, Chloride Level 98, Carbon Dioxide Level 22, Anion Gap 17H, Blood Urea Nitrogen 191H, Creatinine 4.4H, Estimat Glomerular Filtration Rate 9.6, Glucose Level 279#H, Calcium Level 8.6, Total Bilirubin 0.5, Aspartate Amino Transf (AST/SGOT) 120H, Alanine Aminotransferase (ALT/SGPT) 172H, Alkaline Phosphatase 380H, Total Protein 7.5, Albumin 2.0L, Globulin 5.5, Albumin/Globulin Ratio 0.4L 10/08/19 03:20: Phosphorus Level 5.3H, Magnesium Level 2.9H Height (Feet): 5 Height (Inches): 4.00 Weight (Pounds): 112 General Appearance: no apparent distress EENT: other - Trach and vent Cardiovascular: bradycardia Respiratory/Chest: decreased breath sounds, other - Patient has a permacath on the right upper chest placed yesterday Abdomen: other - PEG and feeding in process Objective no change William Blackwood MD Oct 08, 2019 10:26
--- NOTE | 2019-10-08 11:25 | General Progress Note ---
Assessment/Plan Problem List: (1) Failure to thrive (0-17) ICD Codes: R62.51 - Failure to thrive (0-17) SNOMED: 392770786 (2) Hypertensive kidney disease ICD Codes: I12.9 - Hypertensive chronic kidney disease with stage 1 through stage 4 chronic kidney disease, or unspecified chronic kidney disease SNOMED: 64051943 (3) Pneumonia ICD Codes: J18.9 - Pneumonia, unspecified organism SNOMED: 197627195 Qualifiers: Qualified Codes: J18.9 - Pneumonia, unspecified organism (4) ESRD (end stage renal disease) ICD Codes: N18.6 - End stage renal disease SNOMED: 21002531 (5) Septic arthritis ICD Codes: M00.9 - Pyogenic arthritis, unspecified SNOMED: 914082808 (6) Thrombocytopenia ICD Codes: D69.6 - Thrombocytopenia, unspecified SNOMED: 865064586 (7) Hypotension ICD Codes: I95.9 - Hypotension, unspecified SNOMED: 26754350 Qualifiers: Qualified Codes: I95.3 - Hypotension of hemodialysis (8) Malnutrition ICD Codes: E46 - Unspecified protein-calorie malnutrition SNOMED: 85136148 Status: stable, not improved, unchanged, deteriorating Assessment/Plan: Continue vent support. Wean as able. Suctioning and pulmonary toilet. Continue G-tube feedings. Monitor residuals Continue current blood pressure regimen Hemodialysis with ultrafiltration per nephrology. Turn every 2 hours and good skin care. monitor labs/lfts steroids/imuran per GI. monitor wbc iv abx monitor h/h d.w . repeat cultures. needs perm cath if cleared by ID. Discharge planning in progress Subjective ROS Limited/Unobtainable: Yes Constitutional: Reports: malaise, weakness HEENT: Reports: no symptoms Cardiovascular: Reports: no symptoms Respiratory: Reports: cough, shortness of breath, sputum Gastrointestinal/Abdominal: Reports: difficulty swallowing Genitourinary: Reports: no symptoms Neurologic/Psychiatric: Reports: anxiety, pre-existing deficit Endocrine: Reports: no symptoms Hematologic/Lymphatic: Reports: anemia Allergies: Coded Allergies: VANCOMYCIN (Unverified Allergy, Unknown, 08/02/19) All Systems: reviewed and negative except above Subjective No overnight events. Remained stable on the ventilator. Awake and alert. Tolerating G-tube feeds. No fevers or chills noted. LFTs trending down. On antibiotics for pneumonia. On steroids and Imuran for autoimmune hepatitis. Objective Last 24 Hour Vital Signs Date Time Temp Pulse Resp B/P (MAP) Pulse Ox O2 Delivery O2 Flow Rate FiO2 10/08/19 08:33 57 10/08/19 08:32 57 165/75 10/08/19 08:30 165/75 10/08/19 08:01 55 10/08/19 08:00 97.6 57 20 165/75 (105) 98 10/08/19 07:45 60 19 21 10/08/19 04:00 51 10/08/19 04:00 Mechanical Ventilator 10/08/19 04:00 21 10/08/19 04:00 97.1 55 20 144/73 (96) 100 55 10/08/19 03:15 51 18 21 10/08/19 00:00 97.0 59 18 135/72 (93) 98 50 10/08/19 00:00 51 10/08/19 00:00 Mechanical Ventilator 10/07/19 23:03 48 18 21 10/07/19 21:14 60 138/70 10/07/19 20:00 60 10/07/19 20:00 97.0 59 19 138/70 (92) 98 10/07/19 20:00 Mechanical Ventilator 10/07/19 20:00 21 10/07/19 18:49 60 18 21 10/07/19 18:03 61 119/67 10/07/19 17:01 57 18 21 10/07/19 16:55 59 19 133/80 (97) 100 10/07/19 16:50 62 19 130/71 (90) 100 10/07/19 16:45 58 19 106/66 (79) 100 10/07/19 16:40 69 19 106/68 (81) 100 10/07/19 16:35 61 19 112/79 (90) 100 10/07/19 16:30 62 19 114/72 (86) 100 10/07/19 16:27 62 19 10/07/19 16:25 63 19 121/77 (92) 100 10/07/19 16:20 76 19 115/80 (92) 100 10/07/19 16:15 65 19 125/76 (92) 100 10/07/19 16:10 67 19 120/72 (88) 100 10/07/19 16:05 69 19 122/76 (91) 100 10/07/19 16:00 21 10/07/19 16:00 Mechanical Ventilator 10/07/19 16:00 71 19 148/88 (108) 100 10/07/19 16:00 61 10/07/19 15:55 67 19 143/76 (98) 97 10/07/19 15:35 56 21 10/07/19 14:46 53 18 21 10/07/19 13:00 176/100 10/07/19 12:00 Mechanical Ventilator 10/07/19 12:00 21 10/07/19 12:00 97.4 65 18 176/100 (125) 100 10/07/19 11:47 59 Intake and Output 10/07/19 10/08/19 19:00 07:00 Intake Total 380 ml 640 ml Output Total 225 ml 200 ml Balance 155 ml 440 ml Intake Free Water 100 ml 180 ml IV Total 110 ml Tube Feeding 280 ml 350 ml Output Urine Total 225 ml 200 ml # Bowel Movements 1 1 Laboratory Tests 10/08/19 03:00: White Blood Count 7.7, Red Blood Count 3.32L, Hemoglobin 10.0L, Hematocrit 29.4L , Mean Corpuscular Volume 89, Mean Corpuscular Hemoglobin 30.2, Mean Corpuscular Hemoglobin Concent 34.1, Red Cell Distribution Width 14.3, Platelet Count 175, Mean Platelet Volume 5.7L, Neutrophils (%) (Auto) 70.0, Lymphocytes ( %) (Auto) 28.7, Monocytes (%) (Auto) 1.1, Eosinophils (%) (Auto) 0.1, Basophils (%) (Auto) 0.2, Sodium Level 137, Potassium Level 4.3, Chloride Level 98, Carbon Dioxide Level 22, Anion Gap 17H, Blood Urea Nitrogen 191H, Creatinine 4.4H, Estimat Glomerular Filtration Rate 9.6, Glucose Level 279#H, Calcium Level 8.6, Total Bilirubin 0.5, Aspartate Amino Transf (AST/SGOT) 120H, Alanine Aminotransferase (ALT/SGPT) 172H, Alkaline Phosphatase 380H, Total Protein 7.5, Albumin 2.0L, Globulin 5.5, Albumin/Globulin Ratio 0.4L 10/08/19 03:20: Phosphorus Level 5.3H, Magnesium Level 2.9H Height (Feet): 5 Height (Inches): 4.00 Weight (Pounds): 112 Objective General Appearance: WD/WN, awake. looks around. no distress. thin and frail Neck: supple +trach Cardiovascular: normal rate Respiratory/Chest: rhonchi - bilaterally Abdomen: normal bowel sounds, non tender, soft, no organomegaly Edema: no edema noted Arm (L), no edema noted Arm (R), no edema noted Leg (L), no edema noted Leg (R), no edema noted Pedal (L), no edema noted Pedal (R), no edema noted Generalized Neurologic: disoriented, aphasia Skin: +excoriations Nate Beltran MD Oct 08, 2019 11:25
[2019-10-08 12:00] VITALS: BP 159/74
[2019-10-08] MEDS: HydrALAZINE 25mg tab GT SCH ×2 (12:00→18:00)
[2019-10-08 16:00] VITALS: BP 144/71
--- NOTE | 2019-10-08 16:54 | Critical Care Progress Note ---
Assessment/Plan Assessment/Plan respiratory failure hypoxemia chronic renal failure toxic met encephalopathy severe protein calorie malnutrition cachexia left lung whiteout/collapse, anemia pulmonary edema + pleural effusion anasarca s/p CT placement and removal s/p trach hypernatremia leukocytosis ulcerative esophagitis PLAN trach care as is repeat CXR next week wbc improved and monitor care noted and reviewed monitor for fluid retention and effusions reviewed care and continue to monitor weaning unable renal follow up and dialysis prognosis poor overall for change keep negative close follow up discussed elevated head and monitor ROM watch fluid status and keep negative nutrition and monitor residuals doubt any significant improvement off load as able and monitor skin exam ROM as able and monitor contractures prognosis poor for recovery will need LTAC impression, plan, and exam edited and reviewed in detail care discussed with cement 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 operator - Subjective ROS Limited/Unobtainable: Yes Condition: critical EKG Rhythm: Sinus Rhythm Residuals: minimal Tube Feeding Tolerated: yes I&O: Intake and Output 10/07/19 10/08/19 19:00 07:00 Intake Total 380 ml 640 ml Output Total 225 ml 200 ml Balance 155 ml 440 ml Intake Free Water 100 ml 180 ml IV Total 110 ml Tube Feeding 280 ml 350 ml Output Urine Total 225 ml 200 ml # Bowel Movements 1 1 Critical Care - Objective ET-Tube: 7.0 ET Position: 19 Last 24 Hour Vital Signs Date Time Temp Pulse Resp B/P (MAP) Pulse Ox O2 Delivery O2 Flow Rate FiO2 10/08/19 15:13 77 10/08/19 15:03 83 23 21 10/08/19 12:00 91.5 56 20 159/74 (102) 100 10/08/19 12:00 21 10/08/19 12:00 Mechanical Ventilator 10/08/19 11:40 48 10/08/19 11:05 53 18 21 10/08/19 08:33 57 10/08/19 08:32 57 165/75 10/08/19 08:30 165/75 10/08/19 08:01 55 10/08/19 08:00 Mechanical Ventilator 10/08/19 08:00 97.6 57 20 165/75 (105) 98 10/08/19 08:00 21 10/08/19 07:45 60 19 21 10/08/19 04:00 51 10/08/19 04:00 Mechanical Ventilator 10/08/19 04:00 21 10/08/19 04:00 97.1 55 20 144/73 (96) 100 55 10/08/19 03:15 51 18 21 10/08/19 00:00 97.0 59 18 135/72 (93) 98 50 10/08/19 00:00 51 10/08/19 00:00 Mechanical Ventilator 10/07/19 23:03 48 18 21 10/07/19 21:14 60 138/70 10/07/19 20:00 60 10/07/19 20:00 97.0 59 19 138/70 (92) 98 10/07/19 20:00 Mechanical Ventilator 10/07/19 20:00 21 10/07/19 18:49 60 18 21 10/07/19 18:03 61 119/67 10/07/19 17:01 57 18 21 10/07/19 16:55 59 19 133/80 (97) 100 Labs: Labs Test 10/06/19 03:10 10/07/19 05:39 10/08/19 03:00 10/08/19 03:20 White Blood Count 15.7 K/UL (4.8-10.8) 11.1 K/UL (4.8-10.8) 7.7 K/UL (4.8-10.8) Red Blood Count 2.96 M/UL (4.20-5.40) 3.01 M/UL (4.20-5.40) 3.32 M/UL (4.20-5.40) Hemoglobin 9.2 G/DL (12.0-16.0) 9.3 G/DL (12.0-16.0) 10.0 G/DL (12.0-16.0) Hematocrit 25.9 % (37.0-47.0) 26.2 % (37.0-47.0) 29.4 % (37.0-47.0) Mean Corpuscular Volume 88 FL (80-99) 87 FL (80-99) 89 FL (80-99) Mean Corpuscular Hemoglobin 31.2 PG (27.0-31.0) 30.9 PG (27.0-31.0) 30.2 PG (27.0-31.0) Mean Corpuscular Hemoglobin Concent 35.7 G/DL (32.0-36.0) 35.5 G/DL (32.0-36.0) 34.1 G/DL (32.0-36.0) Red Cell Distribution Width 14.3 % (11.6-14.8) 14.4 % (11.6-14.8) 14.3 % (11.6-14.8) Platelet Count 164 K/UL (150-450) 180 K/UL (150-450) 175 K/UL (150-450) Mean Platelet Volume 5.1 FL (6.5-10.1) 5.8 FL (6.5-10.1) 5.7 FL (6.5-10.1) Neutrophils (%) (Auto) 77.8 % (45.0-75.0) 69.6 % (45.0-75.0) 70.0 % (45.0-75.0) Lymphocytes (%) (Auto) 18.8 % (20.0-45.0) 27.1 % (20.0-45.0) 28.7 % (20.0-45.0) Monocytes (%) (Auto) 2.3 % (1.0-10.0) 2.3 % (1.0-10.0) 1.1 % (1.0-10.0) Eosinophils (%) (Auto) 0.8 % (0.0-3.0) 0.5 % (0.0-3.0) 0.1 % (0.0-3.0) Basophils (%) (Auto) 0.4 % (0.0-2.0) 0.4 % (0.0-2.0) 0.2 % (0.0-2.0) Sodium Level 135 MMOL/L (136-145) 138 MMOL/L (136-145) 137 MMOL/L (136-145) Potassium Level 4.1 MMOL/L (3.5-5.1) 3.8 MMOL/L (3.5-5.1) 4.3 MMOL/L (3.5-5.1) Chloride Level 100 MMOL/L (98-107) 101 MMOL/L (98-107) 98 MMOL/L (98-107) Carbon Dioxide Level 22 MMOL/L (21-32) 21 MMOL/L (21-32) 22 MMOL/L (21-32) Anion Gap 13 mmol/L (5-15) 16 mmol/L (5-15) 17 mmol/L (5-15) Blood Urea Nitrogen 170 mg/dL (7-18) 182 mg/dL (7-18) 191 mg/dL (7-18) Creatinine 4.0 MG/DL (0.55-1.30) 4.1 MG/DL (0.55-1.30) 4.4 MG/DL (0.55-1.30) Estimat Glomerular Filtration Rate 10.8 mL/min (>60) 10.5 mL/min (>60) 9.6 mL/min (>60) Glucose Level 117 MG/DL (74-106) 145 MG/DL (74-106) 279 MG/DL (74-106) Calcium Level 8.7 MG/DL (8.5-10.1) 7.9 MG/DL (8.5-10.1) 8.6 MG/DL (8.5-10.1) Phosphorus Level 4.2 MG/DL (2.5-4.9) 3.7 MG/DL (2.5-4.9) 5.3 MG/DL (2.5-4.9) Magnesium Level 2.6 MG/DL (1.8-2.4) 2.6 MG/DL (1.8-2.4) 2.9 MG/DL (1.8-2.4) Iron Level 89 ug/dL (50-175) Total Iron Binding Capacity 110 ug/dL (250-450) Percent Iron Saturation 81 % (15-50) Unsaturated Iron Binding 21 ug/dL (112-346) Ferritin 860 NG/ML (8-388) Total Bilirubin 0.5 MG/DL (0.2-1.0) 0.5 MG/DL (0.2-1.0) 0.5 MG/DL (0.2-1.0) Aspartate Amino Transf (AST/SGOT) 152 U/L (15-37) 190 U/L (15-37) 120 U/L (15-37) Alanine Aminotransferase (ALT/SGPT) 162 U/L (12-78) 202 U/L (12-78) 172 U/L (12-78) Alkaline Phosphatase 337 U/L (46-116) 379 U/L (46-116) 380 U/L (46-116) Lactate Dehydrogenase 430 U/L (81-234) C-Reactive Protein, Quantitative 14.8 mg/dL (0.00-0.90) 9.5 mg/dL (0.00-0.90) Pro-B-Type Natriuretic Peptide > 03368 pg/mL (0-125) Total Protein 6.5 G/DL (6.4-8.2) 6.3 G/DL (6.4-8.2) 7.5 G/DL (6.4-8.2) Albumin 1.9 G/DL (3.4-5.0) 1.7 G/DL (3.4-5.0) 2.0 G/DL (3.4-5.0) Globulin 4.6 g/dL 4.6 g/dL 5.5 g/dL Albumin/Globulin Ratio 0.4 (1.0-2.7) 0.4 (1.0-2.7) 0.4 (1.0-2.7) Vitamin B12 Level 1282 PG/ML (193-986) Folate 18.5 NG/ML (8.6-58.9) Gamma Glutamyl Transpeptidase 91 U/L (5-85) Objective: WDWN NAD trach in place reduced breath sounds without rhonchi or wheeze [id number] without MRG NABS nontender no HSM no CCE contractures feeding tube in place no distention reduced LOC and weak nonfocal cachectic reviewed and edited Micro: Microbiology Date/Time Source Procedure Growth Status 10/06/19 23:00 Sputum Gram Stain - Final Resulted 10/06/19 23:00 Sputum Culture - Preliminary Gram Negative Bacillus 1 Gram Negative Bacillus 2 Gram Negative Bacillus 3 Resulted Accucheck: 89 Malcolm Cruz MD Oct 08, 2019 16:54
--- NOTE | 2019-10-08 19:32 | Surgery Progress Note ---
Surgery Progress Note Subjective Procedure Performed 1. tracheostomy 2 removal of left tube thoracostomy Additional Comments leukocytosis resolved comfortable on support Objective Last 24 Hour Vital Signs Date Time Temp Pulse Resp B/P (MAP) Pulse Ox O2 Delivery O2 Flow Rate FiO2 10/08/19 16:00 21 10/08/19 16:00 98.4 65 20 144/71 (95) 100 10/08/19 16:00 Mechanical Ventilator 10/08/19 15:13 77 10/08/19 15:03 83 23 21 10/08/19 12:00 91.5 56 20 159/74 (102) 100 10/08/19 12:00 21 10/08/19 12:00 Mechanical Ventilator 10/08/19 11:40 48 10/08/19 11:05 53 18 21 10/08/19 08:33 57 10/08/19 08:32 57 165/75 10/08/19 08:30 165/75 10/08/19 08:01 55 10/08/19 08:00 Mechanical Ventilator 10/08/19 08:00 97.6 57 20 165/75 (105) 98 10/08/19 08:00 21 10/08/19 07:45 60 19 21 10/08/19 04:00 51 10/08/19 04:00 Mechanical Ventilator 10/08/19 04:00 21 10/08/19 04:00 97.1 55 20 144/73 (96) 100 55 10/08/19 03:15 51 18 21 10/08/19 00:00 97.0 59 18 135/72 (93) 98 50 10/08/19 00:00 51 10/08/19 00:00 Mechanical Ventilator 10/07/19 23:03 48 18 21 10/07/19 21:14 60 138/70 10/07/19 20:00 60 10/07/19 20:00 97.0 59 19 138/70 (92) 98 10/07/19 20:00 Mechanical Ventilator 10/07/19 20:00 21 I&O Intake and Output 10/07/19 10/08/19 19:00 07:00 Intake Total 380 ml 675 ml Output Total 225 ml 200 ml Balance 155 ml 475 ml Intake Free Water 100 ml 180 ml IV Total 110 ml Tube Feeding 280 ml 385 ml Output Urine Total 225 ml 200 ml # Bowel Movements 1 1 Dressing: dry Wound: other Drains: other Cardiovascular: RSR Respiratory: decreased breath sounds Abdomen: soft, non-tender, present bowel sounds Extremities: no cyanosis, other Laboratory Tests Test 10/08/19 03:00 10/08/19 03:20 White Blood Count 7.7 K/UL (4.8-10.8) Red Blood Count 3.32 M/UL (4.20-5.40) L Hemoglobin 10.0 G/DL (12.0-16.0) L Hematocrit 29.4 % (37.0-47.0) L Mean Corpuscular Volume 89 FL (80-99) Mean Corpuscular Hemoglobin 30.2 PG (27.0-31.0) Mean Corpuscular Hemoglobin Concent 34.1 G/DL (32.0-36.0) Red Cell Distribution Width 14.3 % (11.6-14.8) Platelet Count 175 K/UL (150-450) Mean Platelet Volume 5.7 FL (6.5-10.1) L Neutrophils (%) (Auto) 70.0 % (45.0-75.0) Lymphocytes (%) (Auto) 28.7 % (20.0-45.0) Monocytes (%) (Auto) 1.1 % (1.0-10.0) Eosinophils (%) (Auto) 0.1 % (0.0-3.0) Basophils (%) (Auto) 0.2 % (0.0-2.0) Sodium Level 137 MMOL/L (136-145) Potassium Level 4.3 MMOL/L (3.5-5.1) Chloride Level 98 MMOL/L (98-107) Carbon Dioxide Level 22 MMOL/L (21-32) Anion Gap 17 mmol/L (5-15) H Blood Urea Nitrogen 191 mg/dL (7-18) H Creatinine 4.4 MG/DL (0.55-1.30) H Estimat Glomerular Filtration Rate 9.6 mL/min (>60) Glucose Level 279 MG/DL (74-106) #H Calcium Level 8.6 MG/DL (8.5-10.1) Total Bilirubin 0.5 MG/DL (0.2-1.0) Aspartate Amino Transf (AST/SGOT) 120 U/L (15-37) H Alanine Aminotransferase (ALT/SGPT) 172 U/L (12-78) H Alkaline Phosphatase 380 U/L (46-116) H Total Protein 7.5 G/DL (6.4-8.2) Albumin 2.0 G/DL (3.4-5.0) L Globulin 5.5 g/dL Albumin/Globulin Ratio 0.4 (1.0-2.7) L Phosphorus Level 5.3 MG/DL (2.5-4.9) H Magnesium Level 2.9 MG/DL (1.8-2.4) H Assessment Post-op Diagnosis same Plan Problems: (1) Malnutrition Assessment & Plan: DAILY ESTIMATED NEEDS: Needs based on ESRD+ HD, underweight, wound/ 39.5kg 35-40 kcals/kg 8713-0862 total kcals 1.25-1.8 g protein/kg 49-71 g total protein 20-22 mL/kg 790-869 total fluid mLs NUTRITION DIAGNOSIS: * Increased kcal and protein needs r/t underweight status, HD needs, wuond healing as evidenced by pt is underweight per guidelines, ESRD, on HD, admitted non-blanching erythema wounds @ BL heels and sacrum * Swallowing difficulty R/T dysphagia as evidenced by PROPERTY DEVELOPER recommends temporary nonoral feeding at this time, s/p NGT insertion, on NGT feeding-> now s/p self removal, NPO. CURRENT TF:NPO PO DIET RECOMMENDATIONS: WHEN SAFE FOR ORAL DIET -> renal/ texture per PROPERTY DEVELOPER ENTERAL NUTRITION RECOMMENDATIONS: W/ GI access: Nepro @ 35ml/hr x 22 hrs to provide 770ml, 1386kcal, 62g prot, 560ml free water * W/ GI access, resume TF on Nepro * Initiate Nepro @ 15ml/hr x 6 hrs, advance 10ml q 4-6 hrs as tolerated to goal rate. * Hold 1 hour before and after Synthroid med * HOB over 30 degrees/ water flush per MD. ADDITIONAL RECOMMENDATIONS: 1) Calibrated bed scale wt for accurate CBW -> daily wt monitoring Per HD record: dry wt on 07/30=39.5kg (87lbs) 2) Wound care: (W/ GI access) add Nephorivte x 1 + Balta BID 3) Monitor NPO status: without GI access at this time, s/p pulling out NGT 4) Monitor for hypoglycemia while NPO 5) Monitor for continuity of HD (2) Septic arthritis Assessment & Plan: Pt presented on admission with generalized scaly rash . pt noted to be restless and scratching at skin. Bleeding from oral mucosa noted. Joint deformity noted to R shoulder. Surgical incision approximated with 11 sutures. Erythema but no exudate,or elevation in skin temp at site of incision. Historical incision R hip that is tunneled.Small amt seropurulent exudate noted. Periwound is erythematous,but no elevation in skin temp noted. No odor noted. Non-blanching erythema noted to sacrum. Perianal area is erythematous and excoriated. L heel is boggy with non-blanching erythema. R heel is soft with non-blanching erythema. No evidence of skin breakdown to all other bony prominences. Tx.plan: Cover R shoulder with Drsg and change daily and prn. Cleanse R hip wound with Saline. Apply Therahoney.Apply Cavilon Skin Barrier periwound. Cover with Optifoam drsg. Change every 3 days and prn. Apply Moisture Barrier Paste to perianal area and buttocks. Cover Sacrum with Optifoam drsg. Change every 3 days and prn. Apply Cavilon Skin Barrier to both heels. Cover each heel with Optifoam drsg. Change every 7 days and prn. APM/ELVIA Mattress overlay. Reposition at least every 2hours or as tolerated. Off-load heels with pillow. HD cath necessary HD as renal likely will need intubation 19 x 11 x 11 mm hypoechoic area in the liver adjacent to the gallbladder fossa. Although location is typical for area of focal sparing in a fatty liver, there are no findings to indicate fatty liver and this is a new finding since fairly recent previous exam. Therefore the possibility of a process such as small abscess should be considered. Atrophic echogenic kidneys Negative for gallstones or dilated bile ducts (3) Wound, open, hip or thigh with complication Assessment & Plan: slow healing will need nutritional optimization difficult ng tube peg when stable sutures removed from right shoulder comfortable wean vent may need trach (4) Abscess of right hip (5) possible septic arthritis (6) Renal failure (ARF), acute on chronic Assessment & Plan: cont HD will need tunneled cath placement okay to use fem line for now but will need change soon. line monitored and clean dressings going well (7) Pneumonia Assessment & Plan: intubated on vent support not tolerating weaning may need trach hemothorax likely after thoracentesis Chest CT noted Left chest tube placed With plan for trach chest tube can be considered but overall prognosis is very poor s/p trach left chest tub eout cxr noted and okay downgrade left pleural effusion dressings saturated will need to monitor. may need another chest tube as may not heal well on left side Anasarca, with as mentioned above diffuse edema of the soft tissues, trace ascites, and bilateral pleural effusions No hepatic abnormality to correlate with suspected small pericholecystic lesion in the liver described on recent sonogram. The lesion may be occult on noncontrast CT, may have been artifactual or may have resolved in the interim. Consider repeat sonography in a few days to assess progression No definite acute abdominal process otherwise Improved but still sizable left pleural effusion with minimal residual hemoperitoneum since prior CT scan of 09/01/2019. There is near complete atelectasis of the left lower lobe. There is a small right pleural effusion with atelectatic changes of the right lower lobe and right perihilar dense consolidation. These appear improved since a prior CT of 09/01/2019 Increased crazy paving type opacity within the right middle lobe since previous August [address], may reflect an area of increasing infiltrate, versus focal edema. There is also some dense consolidation of the perihilar right lower lobe which is improved since the previous August 31 CT Right groin temporary dialysis catheter in good position Atrophic kidneys, consistent with known history of chronic renal disease L2 compression fracture deformity, and advanced degenerative changes of the L2- L3 disc. Similar to prior study Marroquin catheter hold on repeat chest tube (8) Liver enzyme elevation Assessment & Plan: likely shock liver improving trend trending down will monitor Camilo James Oct 08, 2019 19:32
[2019-10-08 20:00] VITALS: BP 166/62
[2019-10-08] MEDS: Dyna-Hex 2% Top Sol 2oz TOPIC SCH (21:15)
[2019-10-09] VITALS: BP 162/83
[2019-10-09] MEDS: HydrALAZINE 25mg tab GT SCH ×4 (00:17→18:24)
[2019-10-09 04:00] VITALS: BP 172/77
--- NOTE | 2019-10-09 06:41 | Hematology/Onc Progress Note ---
Assessment/Plan Assessment/Plan # Thrombocytopenia ow THROMBOCYTOSIS - potential causes multifactorial, evaluate liver and viral etiologies to begin, in this case due to sepsis with septic shock also with cirrhosis and liver disease --> Hep panel and HIV ordered --> neg --> US abd to evaluate for cirrhosis and hsm ordered --> reviewed --> Peripheral smear ordered to evaluate for blasts /schistocytes --> none noted --> abx and other meds have been reviewed --> ok for ppx if plt >50k w/ either heparin or lovenox --> Transfuse if Plt < 20k and fever, or if Plt < 10k without fever --> okay for permacath change once plt better--> for 08/14 --> plt trend: 43-->83-->237k-->292-->341-->315-->388 -->444-->530-->252k-->344- >529->525k-->273 # Anemia of chronic disease due to underlying chronic medical issues, multifactorial v Gi bleed --> Anemia workup has been ordered, rule out gi bleed --> No evidence of hemolysis is noted, peripheral smear has been reviewed. --> Hgb goal >7. Transfuse prn. --> Epogen has been started --> HOLD OFF IRON ferritin is >1000 --> Medications have been reviewed --> low threshold for gi evaluation in case has occult + --> hgb 9-->6.7-->9.2 -->10.5-->10.6 -->10.7-->10-->10.5-->9.8-->10.4-->9.5--> 3.6-->9.6-->9.7-->10-->10.3-->11->9.9->8.3->8.7-->8.1-->8.9-->7.4->9.2 --> blood tx: 08/11, 08/31, 10/03 --> CT Chest r/o hemothorax --> does show confirmation of a large left hemothorax. Complete atelectasis of the left lower lobe and partial left upper lobe atelectasis demonstrated. Mild rightward shift of the heart and mediastinum. --> stool ob negative # Leukocytosis with Sepsis with shock. --> abx as per id, recs noted--> off abx --> pressors as needed --> IS now on steriods # Healthcare-associated pneumonia. --> recs reviewed --> abx: jung/micafungin-->jung-->off --> 08/24 chest: moderate left pleural effusion # Severe protein-calorie malnutrition. --> nutritional support # End-stage renal disease --> had as renal hd --> with permacath # History of hypertension. --> per cards, now with Bradycardia. # Resp failure s/p vent/trach # HypoThyroid # Ngt feedings # Dvt ppx scd's The timing of this note does not necessarily reflect the time of the patient was seen. Greatly appreciate consultation. Subjective Constitutional: Denies: no symptoms, chills, fever, malaise, weakness, other HEENT: Denies: no symptoms, eye pain, blurred vision, tearing, double vision, ear pain, ear discharge, nose pain, nose congestion, throat pain, throat swelling, mouth pain, mouth swelling, other Cardiovascular: Denies: no symptoms, chest pain, edema, irregular heart rate, lightheadedness, palpitations, syncope, other Respiratory: Denies: no symptoms, cough, shortness of breath, SOB with excertion, SOB at rest, sputum, wheezing, other Gastrointestinal/Abdominal: Denies: no symptoms, abdomen distended, abdominal pain, black stools, tarry stools, blood in stool, constipated, diarrhea, difficulty swallowing, nausea, poor appetite, poor fluid intake, rectal bleeding , vomiting, other Genitourinary: Denies: no symptoms, burning, discharge, frequency, flank pain, hematuria, incontinence, pain, urgency, other Neurologic/Psychiatric: Denies: no symptoms, anxiety, depressed, emotional problems, headache, numbness, paresthesia, pre-existing deficit, seizure, tingling, tremors, weakness, other Endocrine: Denies: no symptoms, excessive sweating, flushing, intolerance to cold, intolerance to heat, increased hunger, increased thirst, increased urine, unexplained weight gain, unexplained weight loss, other Hematologic/Lymphatic: Denies: no symptoms, anemia, easy bleeding, easy bruising, adenopathy, other Allergies: Coded Allergies: VANCOMYCIN (Unverified Allergy, Unknown, 08/02/19) Subjective 08/11: no bleeding or chills, labs reviewed, no major bleeding, plt less than 50k 08/12: icu, s/p blood, hgb improved to 9.2, 08/14: icu, pending consent for thora and permacath, labs reviewed 08/15: new permacath placed, no bleeding, for hd, plt much improved, started lovenox sq 08/16: ett to be adjusted, bp on high end, micafungin started, possible bronch 08/17: weaning as per pulm, no events otherwise, labs noted 08/18: no events no bleeding, remains confused on vent, for hd 08/20: icu, failed to wean, labs reviewed, jung 08/21: resting in bed, no overnight events, labs reviewed 08/22: awake, confused, restraints, no overnight events 08/23: no events, no bleeding, on ppi bid 08/24: icu, failed to wean, labs reviewed 08/25: no overnight events, us chest, restraints, afebrile 08/26 difficult in weaning, nad, seen by surg, pulm labs noted 08/27 awake on restraints, thoracentesis for am, labs reviewed 08/29 no bleeding, no night sweats, no major changes, on ppi bid 08/30 no major events, remains on vent, no bleeding, dw pcp 08/31 hgb dropped to 3.6, has been transfused with prbc, in icu, david Rn, ct chest pend 09/01 no major events, no bleeding, labs noted, hgb remains low, hgb 9.6 09/03 lethargic, left chest tube dry/intact, off abx, vent 09/04 remains on a vent, synthroid, labs reviewed 09/05 awake and alert, no acute events, hgb 9.8, no new orders 09/06 no bleeding or chills, labs noted, no major events overnight, david rn 09/07 no events, no night sweats, no bleeding, no fc, remains agitated in the am 09/08 remains in the icu, trach was done, on vent, abx off, on epo 09/10 transferred to sdu, restraints, vent, labs reviewed 09/11 tube feeds have been ongoing, no f/c, labs reviewed 09/12 no events, no bleeding, no night sweats, hgb 10 09/13 tsh is improved, remains confused, hgb is 11, no bleeding 09/14 no events, no bleeding, labs noted, vitals stable 09/15 confused, no acute events, restraints, dc planning 09/17 no new changes, no recent labs, placement pending 09/18 no events, no bleeding, no night sweats, fevers 09/19 nonverbal, vent, elevated bp, off abx 09/20 labs reviewed, dw rn, no bleeding, meds reviewed 09/21 is a+o x 1, nonverbal, no bleeding, labs reviewed, no night sweats 09/22 no major events, no bleeding, no night sweats, no f/c, labs noted hgb 10.5 09/25 no events, no bleeding, labs noted, cbc reviewed 09/26 no events, with gtube feeds ongoing and with event, labs noted 09/27 labs have been reviewed, no night sweats, no fc 09/28 labs reviewed, no night sweats, hgb lower, but holding off on transfusion 09/29 alert, stool ob negative, h/h stable, dc planning 10/01 sdu, tsh improved, labs reviewed, elevated bp 10/02 no major events, no bleeding, labs reviewed, hgb 8, nv 10/03 no changes, labs reviewed, cbc noted, no bleeding, hgb 6.7, to get 1 unit prbc 10/04 labs noted, no bleeding epogen has been started, hgb 7.4, on epo 10/05 labs have been reviewed, no bleeding, hg low, no bleeding, confused 10/06 remains confused, wolof speaking, with right abigail intact 10/08 on vent, with right permacath, and right abigail, labs noted Objective Objective Current Medications Medications (Trade) Dose Ordered Sig/Javier Route PRN Reason Start Time Stop Time Status Last Admin Dose Admin Amlodipine Besylate (Norvasc) 5 mg BID GT 10/08/19 18:00 10/25/19 08:59 Azathioprine (Imuran) 50 mg DAILY ORAL 10/05/19 09:00 01/03/20 08:59 10/08/19 08:31 Chlorhexidine Gluconate (Nae-Hex 2%) 1 applic DAILY@2000 TOPIC 09/17/19 20:00 12/16/19 19:59 10/08/19 21:15 Dextrose (Dextrose 50%) 25 ml Q30M PRN IV Hypoglycemia 09/02/19 06:15 12/01/19 06:14 09/04/19 12:11 Dextrose (Dextrose 50%) 50 ml Q30M PRN IV Hypoglycemia 09/02/19 06:15 12/01/19 06:14 Doxazosin Mesylate (Cardura) 2 mg EVERY 12 HOURS GT 10/07/19 09:00 11/06/19 08:59 10/08/19 21:15 Epoetin Thomas (Epoetin Thomas-EPBX(NON ESRD)) 4,000 unit SUBQ 10/05/19 21:00 01/03/20 20:59 10/07/19 21:15 Hydralazine HCl (Apresoline) 10 mg Q4H PRN IV BP OVER 160 SYST 10/08/19 10:30 01/06/20 10:29 Hydralazine HCl (Apresoline) 25 mg Q6HR GT 10/08/19 12:00 01/06/20 11:59 10/09/19 00:17 Lansoprazole (Prevacid) 30 mg EVERY 12 HOURS GT 10/08/19 21:00 10/27/19 08:59 10/08/19 21:16 Levothyroxine Sodium (Synthroid) 125 mcg DAILY@0630 ORAL 09/22/19 06:30 10/22/19 06:29 10/08/19 06:11 Losartan Potassium (Cozaar) 100 mg DAILY GT 10/06/19 09:00 11/05/19 08:59 10/08/19 08:30 Metoprolol Tartrate (Lopressor) 12.5 mg Q12HR GT 10/08/19 21:00 12/30/19 08:59 10/08/19 21:17 Piperacillin Sod/ Tazobactam Sod 2.25 gm/Dextrose 55 ml @ 110 mls/hr Q8HR IVPB 10/06/19 06:00 10/11/19 05:59 10/08/19 21:17 Prednisone (predniSONE) 30 mg DAILY ORAL 10/03/19 09:00 11/02/19 08:59 10/08/19 08:31 Psyllium Hydrophilic Mucilloid (Metamucil) 1 pkt DAILY ORAL 09/22/19 15:00 10/22/19 14:59 10/08/19 08:30 Sevelamer Carbonate (Renvela) 800 mg Q8HR NG 09/25/19 14:00 12/24/19 13:59 10/08/19 21:16 Last 24 Hour Vital Signs Date Time Temp Pulse Resp B/P (MAP) Pulse Ox O2 Delivery O2 Flow Rate FiO2 10/09/19 04:53 61 18 21 10/09/19 04:00 Mechanical Ventilator 10/09/19 04:00 21 10/09/19 04:00 97.2 60 18 172/77 (108) 100 10/09/19 03:45 58 10/09/19 03:19 65 19 21 10/09/19 01:20 59 18 21 10/09/19 00:17 162/83 10/09/19 00:00 21 10/09/19 00:00 Mechanical Ventilator 10/09/19 00:00 96.8 62 18 162/83 (109) 100 10/08/19 23:54 60 10/08/19 23:10 65 18 21 10/08/19 21:17 65 166/62 10/08/19 20:50 70 19 21 10/08/19 20:00 Mechanical Ventilator 10/08/19 20:00 97.3 62 18 166/62 (96) 100 10/08/19 20:00 21 10/08/19 19:20 67 10/08/19 19:10 68 18 21 10/08/19 16:00 21 10/08/19 16:00 98.4 65 20 144/71 (95) 100 10/08/19 16:00 Mechanical Ventilator 10/08/19 15:13 77 10/08/19 15:03 83 23 21 10/08/19 12:00 91.5 56 20 159/74 (102) 100 10/08/19 12:00 21 10/08/19 12:00 Mechanical Ventilator 10/08/19 11:40 48 10/08/19 11:05 53 18 21 10/08/19 08:33 57 10/08/19 08:32 57 165/75 10/08/19 08:30 165/75 10/08/19 08:01 55 10/08/19 08:00 Mechanical Ventilator 10/08/19 08:00 97.6 57 20 165/75 (105) 98 10/08/19 08:00 21 10/08/19 07:45 60 19 21 10/08/19 04:00 51 10/08/19 04:00 Mechanical Ventilator 10/08/19 04:00 21 10/08/19 04:00 97.1 55 20 144/73 (96) 100 55 10/08/19 03:15 51 18 21 10/08/19 00:00 97.0 59 18 135/72 (93) 98 50 10/08/19 00:00 51 10/08/19 00:00 Mechanical Ventilator 10/07/19 23:03 48 18 21 10/07/19 21:14 60 138/70 10/07/19 20:00 60 10/07/19 20:00 97.0 59 19 138/70 (92) 98 10/07/19 20:00 Mechanical Ventilator 10/07/19 20:00 21 10/07/19 18:49 60 18 21 10/07/19 18:03 61 119/67 10/07/19 17:01 57 18 21 10/07/19 16:55 59 19 133/80 (97) 100 10/07/19 16:50 62 19 130/71 (90) 100 10/07/19 16:45 58 19 106/66 (79) 100 10/07/19 16:40 69 19 106/68 (81) 100 10/07/19 16:35 61 19 112/79 (90) 100 10/07/19 16:30 62 19 114/72 (86) 100 10/07/19 16:27 62 19 10/07/19 16:25 63 19 121/77 (92) 100 10/07/19 16:20 76 19 115/80 (92) 100 10/07/19 16:15 65 19 125/76 (92) 100 10/07/19 16:10 67 19 120/72 (88) 100 10/07/19 16:05 69 19 122/76 (91) 100 10/07/19 16:00 21 10/07/19 16:00 Mechanical Ventilator 10/07/19 16:00 71 19 148/88 (108) 100 10/07/19 16:00 61 10/07/19 15:55 67 19 143/76 (98) 97 10/07/19 15:35 56 21 10/07/19 14:46 53 18 21 10/07/19 13:00 176/100 10/07/19 12:00 Mechanical Ventilator 10/07/19 12:00 21 10/07/19 12:00 97.4 65 18 176/100 (125) 100 10/07/19 11:47 59 10/07/19 10:20 100 10/07/19 10:20 59 18 21 10/07/19 09:58 58 174/74 10/07/19 09:53 174/74 10/07/19 09:00 57 10/07/19 08:08 61 18 21 10/07/19 08:00 Mechanical Ventilator 10/07/19 08:00 61 10/07/19 08:00 21 10/07/19 08:00 96.8 57 18 174/74 (107) 100 Intake and Output 10/08/19 10/09/19 19:00 07:00 Intake Total 605 ml 505 ml Output Total 1250 ml Balance -645 ml 505 ml Intake Free Water 220 ml 100 ml IV Total 55 ml Tube Feeding 385 ml 350 ml Output Urine Total 250 ml Hemodialysis UF 1000 ml # Bowel Movements 1 1 Labs Test 10/07/19 05:39 10/08/19 03:00 10/08/19 03:20 White Blood Count 11.1 K/UL (4.8-10.8) 7.7 K/UL (4.8-10.8) Red Blood Count 3.01 M/UL (4.20-5.40) 3.32 M/UL (4.20-5.40) Hemoglobin 9.3 G/DL (12.0-16.0) 10.0 G/DL (12.0-16.0) Hematocrit 26.2 % (37.0-47.0) 29.4 % (37.0-47.0) Mean Corpuscular Volume 87 FL (80-99) 89 FL (80-99) Mean Corpuscular Hemoglobin 30.9 PG (27.0-31.0) 30.2 PG (27.0-31.0) Mean Corpuscular Hemoglobin Concent 35.5 G/DL (32.0-36.0) 34.1 G/DL (32.0-36.0) Red Cell Distribution Width 14.4 % (11.6-14.8) 14.3 % (11.6-14.8) Platelet Count 180 K/UL (150-450) 175 K/UL (150-450) Mean Platelet Volume 5.8 FL (6.5-10.1) 5.7 FL (6.5-10.1) Neutrophils (%) (Auto) 69.6 % (45.0-75.0) 70.0 % (45.0-75.0) Lymphocytes (%) (Auto) 27.1 % (20.0-45.0) 28.7 % (20.0-45.0) Monocytes (%) (Auto) 2.3 % (1.0-10.0) 1.1 % (1.0-10.0) Eosinophils (%) (Auto) 0.5 % (0.0-3.0) 0.1 % (0.0-3.0) Basophils (%) (Auto) 0.4 % (0.0-2.0) 0.2 % (0.0-2.0) Sodium Level 138 MMOL/L (136-145) 137 MMOL/L (136-145) Potassium Level 3.8 MMOL/L (3.5-5.1) 4.3 MMOL/L (3.5-5.1) Chloride Level 101 MMOL/L (98-107) 98 MMOL/L (98-107) Carbon Dioxide Level 21 MMOL/L (21-32) 22 MMOL/L (21-32) Anion Gap 16 mmol/L (5-15) 17 mmol/L (5-15) Blood Urea Nitrogen 182 mg/dL (7-18) 191 mg/dL (7-18) Creatinine 4.1 MG/DL (0.55-1.30) 4.4 MG/DL (0.55-1.30) Estimat Glomerular Filtration Rate 10.5 mL/min (>60) 9.6 mL/min (>60) Glucose Level 145 MG/DL (74-106) 279 MG/DL (74-106) Calcium Level 7.9 MG/DL (8.5-10.1) 8.6 MG/DL (8.5-10.1) Phosphorus Level 3.7 MG/DL (2.5-4.9) 5.3 MG/DL (2.5-4.9) Magnesium Level 2.6 MG/DL (1.8-2.4) 2.9 MG/DL (1.8-2.4) Total Bilirubin 0.5 MG/DL (0.2-1.0) 0.5 MG/DL (0.2-1.0) Gamma Glutamyl Transpeptidase 91 U/L (5-85) Aspartate Amino Transf (AST/SGOT) 190 U/L (15-37) 120 U/L (15-37) Alanine Aminotransferase (ALT/SGPT) 202 U/L (12-78) 172 U/L (12-78) Alkaline Phosphatase 379 U/L (46-116) 380 U/L (46-116) C-Reactive Protein, Quantitative 9.5 mg/dL (0.00-0.90) Total Protein 6.3 G/DL (6.4-8.2) 7.5 G/DL (6.4-8.2) Albumin 1.7 G/DL (3.4-5.0) 2.0 G/DL (3.4-5.0) Globulin 4.6 g/dL 5.5 g/dL Albumin/Globulin Ratio 0.4 (1.0-2.7) 0.4 (1.0-2.7) Height (Feet): 5 Height (Inches): 4.00 Weight (Pounds): 112 Objective Physical Exam vitals: reviewed gen: nad pulm: on trach+ / vent, decreased breath sounds left, right perm+ cv: rrr, no gmr abd: sfot, nt, nd ++ gt ext: no cce + right Gio Rosa MD Oct 09, 2019 06:41
[2019-10-09] MEDS: Piperacillin/Tazobactam 2.25 GM in D5W 55 ML IVPB SCH ×3 (06:47→22:39)
[2019-10-09] MEDS: Renvela 800mg Pkt NG SCH ×3 (06:47→22:40)
[2019-10-09] MEDS: Levothyroxine 125mcg tab ORAL SCH (06:47)
[2019-10-09 08:00] VITALS: BP 181/79
[2019-10-09] MEDS: Doxazosin 1mg Tab GT SCH ×2 (08:43→22:39)
[2019-10-09] MEDS: Losartan 50mg tab GT SCH (08:44)
[2019-10-09] MEDS: azaTHIOprine 50 MG TAB ORAL SCH (08:45)
[2019-10-09] MEDS: Metamucil Pkt ORAL SCH (08:46)
--- NOTE | 2019-10-09 08:57 | General Progress Note ---
Assessment/Plan Problem List: (1) Failure to thrive (0-17) ICD Codes: R62.51 - Failure to thrive (0-17) SNOMED: 799899299 (2) Hypertensive kidney disease ICD Codes: I12.9 - Hypertensive chronic kidney disease with stage 1 through stage 4 chronic kidney disease, or unspecified chronic kidney disease SNOMED: 09555728 (3) Pneumonia ICD Codes: J18.9 - Pneumonia, unspecified organism SNOMED: 847838954 Qualifiers: Qualified Codes: J18.9 - Pneumonia, unspecified organism (4) ESRD (end stage renal disease) ICD Codes: N18.6 - End stage renal disease SNOMED: 41782324 (5) Septic arthritis ICD Codes: M00.9 - Pyogenic arthritis, unspecified SNOMED: 591235090 (6) Thrombocytopenia ICD Codes: D69.6 - Thrombocytopenia, unspecified SNOMED: 795951642 (7) Hypotension ICD Codes: I95.9 - Hypotension, unspecified SNOMED: 17961808 Qualifiers: Qualified Codes: I95.3 - Hypotension of hemodialysis (8) Malnutrition ICD Codes: E46 - Unspecified protein-calorie malnutrition SNOMED: 14862942 Status: stable, not improved, unchanged, deteriorating Assessment/Plan: Continue vent support. Wean as able. Suctioning and pulmonary toilet. Continue G-tube feedings. Monitor residuals increase hydralazine to 50 q6 Hemodialysis with ultrafiltration per nephrology. Turn every 2 hours and good skin care. monitor labs/lfts steroids/imuran per GI. monitor wbc iv abx monitor h/h d.w . repeat cultures. needs perm cath if cleared by ID. Discharge planning in progress Subjective ROS Limited/Unobtainable: No Constitutional: Reports: malaise, weakness HEENT: Reports: no symptoms Cardiovascular: Reports: no symptoms Respiratory: Reports: shortness of breath, sputum Gastrointestinal/Abdominal: Reports: difficulty swallowing Genitourinary: Reports: no symptoms Neurologic/Psychiatric: Reports: emotional problems, pre-existing deficit Endocrine: Reports: no symptoms Hematologic/Lymphatic: Reports: anemia Allergies: Coded Allergies: VANCOMYCIN (Unverified Allergy, Unknown, 08/02/19) All Systems: reviewed and negative except above Subjective No overnight events. Remained stable on the ventilator. Awake and alert. Tolerating G-tube feeds. No fevers or chills noted. LFTs trending down. On antibiotics for pneumonia. On steroids and Imuran for autoimmune hepatitis. bp still running high. Objective Last 24 Hour Vital Signs Date Time Temp Pulse Resp B/P (MAP) Pulse Ox O2 Delivery O2 Flow Rate FiO2 10/09/19 08:45 60 181/79 10/09/19 08:44 60 181/79 10/09/19 08:44 181/79 10/09/19 08:00 96.4 60 18 181/79 (113) 100 10/09/19 06:47 172/77 10/09/19 04:53 61 18 21 10/09/19 04:00 Mechanical Ventilator 10/09/19 04:00 21 10/09/19 04:00 97.2 60 18 172/77 (108) 100 10/09/19 03:45 58 10/09/19 03:19 65 19 21 10/09/19 01:20 59 18 21 10/09/19 00:17 162/83 10/09/19 00:00 21 10/09/19 00:00 Mechanical Ventilator 10/09/19 00:00 96.8 62 18 162/83 (109) 100 10/08/19 23:54 60 10/08/19 23:10 65 18 21 10/08/19 21:17 65 166/62 10/08/19 20:50 70 19 21 10/08/19 20:00 Mechanical Ventilator 10/08/19 20:00 97.3 62 18 166/62 (96) 100 10/08/19 20:00 21 10/08/19 19:20 67 10/08/19 19:10 68 18 21 10/08/19 16:00 21 10/08/19 16:00 98.4 65 20 144/71 (95) 100 10/08/19 16:00 Mechanical Ventilator 10/08/19 15:13 77 10/08/19 15:03 83 23 21 10/08/19 12:00 91.5 56 20 159/74 (102) 100 10/08/19 12:00 21 10/08/19 12:00 Mechanical Ventilator 10/08/19 11:40 48 10/08/19 11:05 53 18 21 Intake and Output 10/08/19 10/09/19 19:00 07:00 Intake Total 605 ml 670 ml Output Total 1250 ml 350 ml Balance -645 ml 320 ml Intake Free Water 220 ml 300 ml IV Total 55 ml Tube Feeding 385 ml 315 ml Output Urine Total 250 ml 350 ml Hemodialysis UF 1000 ml # Bowel Movements 1 2 Height (Feet): 5 Height (Inches): 4.00 Weight (Pounds): 112 Objective General Appearance: WD/WN, awake. looks around. no distress. thin and frail Neck: supple +trach Cardiovascular: normal rate Respiratory/Chest: rhonchi - bilaterally Abdomen: normal bowel sounds, non tender, soft, no organomegaly Edema: no edema noted Arm (L), no edema noted Arm (R), no edema noted Leg (L), no edema noted Leg (R), no edema noted Pedal (L), no edema noted Pedal (R), no edema noted Generalized Neurologic: disoriented, aphasia Skin: +excoriations Nate Beltran MD Oct 09, 2019 08:57
--- NOTE | 2019-10-09 10:04 | Critical Care Progress Note ---
Assessment/Plan Assessment/Plan respiratory failure hypoxemia chronic renal failure toxic met encephalopathy severe protein calorie malnutrition cachexia left lung whiteout/collapse, anemia pulmonary edema + pleural effusion anasarca s/p CT placement and removal s/p trach hypernatremia leukocytosis ulcerative esophagitis PLAN trach care as is repeat CXR for change wbc improved and monitor care noted and reviewed monitor for fluid retention and effusions prognosis for recovery poor renal follow up and dialysis prognosis poor overall for change keep negative as able close follow up discussed elevated head and monitor ROM watch fluid status and keep negative nutrition and monitor residuals doubt any significant improvement off load as able and monitor skin exam ROM as able and monitor contractures prognosis poor for recovery will need LTAC impression, plan, and exam edited and reviewed in detail care discussed with pipeline systems operator - Subjective Interval Events: care noted labs reviewed BP elevated on vent ROS Limited/Unobtainable: Yes Condition: unchanged EKG Rhythm: Sinus Rhythm Residuals: minimal Tube Feeding Tolerated: yes I&O: Intake and Output 10/08/19 10/09/19 19:00 07:00 Intake Total 605 ml 670 ml Output Total 1250 ml 350 ml Balance -645 ml 320 ml Intake Free Water 220 ml 300 ml IV Total 55 ml Tube Feeding 385 ml 315 ml Output Urine Total 250 ml 350 ml Hemodialysis UF 1000 ml # Bowel Movements 1 2 Critical Care - Objective ET-Tube: 7.0 ET Position: 19 Last 24 Hour Vital Signs Date Time Temp Pulse Resp B/P (MAP) Pulse Ox O2 Delivery O2 Flow Rate FiO2 10/09/19 08:45 60 181/79 10/09/19 08:44 60 181/79 10/09/19 08:44 181/79 10/09/19 08:00 96.4 60 18 181/79 (113) 100 10/09/19 07:59 62 10/09/19 07:00 60 19 21 10/09/19 06:47 172/77 10/09/19 04:53 61 18 21 10/09/19 04:00 Mechanical Ventilator 10/09/19 04:00 21 10/09/19 04:00 97.2 60 18 172/77 (108) 100 10/09/19 03:45 58 10/09/19 03:19 65 19 21 10/09/19 01:20 59 18 21 10/09/19 00:17 162/83 10/09/19 00:00 21 10/09/19 00:00 Mechanical Ventilator 10/09/19 00:00 96.8 62 18 162/83 (109) 100 10/08/19 23:54 60 10/08/19 23:10 65 18 21 10/08/19 21:17 65 166/62 10/08/19 20:50 70 19 21 10/08/19 20:00 Mechanical Ventilator 10/08/19 20:00 97.3 62 18 166/62 (96) 100 10/08/19 20:00 21 10/08/19 19:20 67 10/08/19 19:10 68 18 21 10/08/19 16:00 21 10/08/19 16:00 98.4 65 20 144/71 (95) 100 10/08/19 16:00 Mechanical Ventilator 10/08/19 15:13 77 10/08/19 15:03 83 23 21 10/08/19 12:00 91.5 56 20 159/74 (102) 100 10/08/19 12:00 21 10/08/19 12:00 Mechanical Ventilator 10/08/19 11:40 48 10/08/19 11:05 53 18 21 Labs: Labs Test 10/07/19 05:39 10/08/19 03:00 10/08/19 03:20 White Blood Count 11.1 K/UL (4.8-10.8) 7.7 K/UL (4.8-10.8) Red Blood Count 3.01 M/UL (4.20-5.40) 3.32 M/UL (4.20-5.40) Hemoglobin 9.3 G/DL (12.0-16.0) 10.0 G/DL (12.0-16.0) Hematocrit 26.2 % (37.0-47.0) 29.4 % (37.0-47.0) Mean Corpuscular Volume 87 FL (80-99) 89 FL (80-99) Mean Corpuscular Hemoglobin 30.9 PG (27.0-31.0) 30.2 PG (27.0-31.0) Mean Corpuscular Hemoglobin Concent 35.5 G/DL (32.0-36.0) 34.1 G/DL (32.0-36.0) Red Cell Distribution Width 14.4 % (11.6-14.8) 14.3 % (11.6-14.8) Platelet Count 180 K/UL (150-450) 175 K/UL (150-450) Mean Platelet Volume 5.8 FL (6.5-10.1) 5.7 FL (6.5-10.1) Neutrophils (%) (Auto) 69.6 % (45.0-75.0) 70.0 % (45.0-75.0) Lymphocytes (%) (Auto) 27.1 % (20.0-45.0) 28.7 % (20.0-45.0) Monocytes (%) (Auto) 2.3 % (1.0-10.0) 1.1 % (1.0-10.0) Eosinophils (%) (Auto) 0.5 % (0.0-3.0) 0.1 % (0.0-3.0) Basophils (%) (Auto) 0.4 % (0.0-2.0) 0.2 % (0.0-2.0) Sodium Level 138 MMOL/L (136-145) 137 MMOL/L (136-145) Potassium Level 3.8 MMOL/L (3.5-5.1) 4.3 MMOL/L (3.5-5.1) Chloride Level 101 MMOL/L (98-107) 98 MMOL/L (98-107) Carbon Dioxide Level 21 MMOL/L (21-32) 22 MMOL/L (21-32) Anion Gap 16 mmol/L (5-15) 17 mmol/L (5-15) Blood Urea Nitrogen 182 mg/dL (7-18) 191 mg/dL (7-18) Creatinine 4.1 MG/DL (0.55-1.30) 4.4 MG/DL (0.55-1.30) Estimat Glomerular Filtration Rate 10.5 mL/min (>60) 9.6 mL/min (>60) Glucose Level 145 MG/DL (74-106) 279 MG/DL (74-106) Calcium Level 7.9 MG/DL (8.5-10.1) 8.6 MG/DL (8.5-10.1) Phosphorus Level 3.7 MG/DL (2.5-4.9) 5.3 MG/DL (2.5-4.9) Magnesium Level 2.6 MG/DL (1.8-2.4) 2.9 MG/DL (1.8-2.4) Total Bilirubin 0.5 MG/DL (0.2-1.0) 0.5 MG/DL (0.2-1.0) Gamma Glutamyl Transpeptidase 91 U/L (5-85) Aspartate Amino Transf (AST/SGOT) 190 U/L (15-37) 120 U/L (15-37) Alanine Aminotransferase (ALT/SGPT) 202 U/L (12-78) 172 U/L (12-78) Alkaline Phosphatase 379 U/L (46-116) 380 U/L (46-116) C-Reactive Protein, Quantitative 9.5 mg/dL (0.00-0.90) Total Protein 6.3 G/DL (6.4-8.2) 7.5 G/DL (6.4-8.2) Albumin 1.7 G/DL (3.4-5.0) 2.0 G/DL (3.4-5.0) Globulin 4.6 g/dL 5.5 g/dL Albumin/Globulin Ratio 0.4 (1.0-2.7) 0.4 (1.0-2.7) Objective: WDWN NAD trach in place reduced breath sounds without rhonchi or wheeze [id number] without MRG NABS nontender no HSM no CCE contractures feeding tube in place no distention reduced LOC and weak nonfocal cachectic reviewed and edited Micro: Microbiology Date/Time Source Procedure Growth Status 10/08/19 04:40 Sputum Gram Stain - Final Resulted 10/08/19 04:40 Sputum Culture - Preliminary Gram Negative Bacillus 1 Gram Negative Bacillus 2 Resulted 10/06/19 23:00 Sputum Gram Stain - Final Complete 10/06/19 23:00 Sputum Culture - Final Klebsiella Pneumoniae Esbl Enterobacter Aerogenes Proteus Mirabilis Complete Accucheck: 89 Malcolm Cruz MD Oct 09, 2019 10:04
--- NOTE | 2019-10-09 10:58 | Infectious Diseases Prog Note ---
Assessment/Plan Assessment/Plan A; 1. Plural effusion s/p thoracentesis 2.Pneumonia with Enterobacter, Proteus Klebsiella 3. Right shoulder septic arthritis, status post surgery. 4. Diabetes. 5. Hypertension. 6. Anemia 7. Thrombocytopenia resolved 9. Atelectasis , resolved 10. Pleural effusion, hemothorax 11. Ulcerative esophagitis 12. Leukocytosis PLAN: 1. Continue Zosyn 2. Negative COVID19 test Subjective ROS Limited/Unobtainable: Yes Constitutional: Reports: other - on warming blanket Allergies: Coded Allergies: VANCOMYCIN (Unverified Allergy, Unknown, 08/02/19) Objective Vital Signs Last 24 Hour Vital Signs Date Time Temp Pulse Resp B/P (MAP) Pulse Ox O2 Delivery O2 Flow Rate FiO2 10/09/19 08:45 60 181/79 10/09/19 08:44 60 181/79 10/09/19 08:44 181/79 10/09/19 08:00 96.4 60 18 181/79 (113) 100 10/09/19 07:59 62 10/09/19 07:00 60 19 21 10/09/19 06:47 172/77 10/09/19 04:53 61 18 21 10/09/19 04:00 Mechanical Ventilator 10/09/19 04:00 21 10/09/19 04:00 97.2 60 18 172/77 (108) 100 10/09/19 03:45 58 10/09/19 03:19 65 19 21 10/09/19 01:20 59 18 21 10/09/19 00:17 162/83 10/09/19 00:00 21 10/09/19 00:00 Mechanical Ventilator 10/09/19 00:00 96.8 62 18 162/83 (109) 100 10/08/19 23:54 60 10/08/19 23:10 65 18 21 10/08/19 21:17 65 166/62 10/08/19 20:50 70 19 21 10/08/19 20:00 Mechanical Ventilator 10/08/19 20:00 97.3 62 18 166/62 (96) 100 10/08/19 20:00 21 10/08/19 19:20 67 10/08/19 19:10 68 18 21 10/08/19 16:00 21 10/08/19 16:00 98.4 65 20 144/71 (95) 100 10/08/19 16:00 Mechanical Ventilator 10/08/19 15:13 77 10/08/19 15:03 83 23 21 10/08/19 12:00 91.5 56 20 159/74 (102) 100 10/08/19 12:00 21 10/08/19 12:00 Mechanical Ventilator 10/08/19 11:40 48 10/08/19 11:05 53 18 21 Height (Feet): 5 Height (Inches): 4.00 Weight (Pounds): 112 General Appearance: cachetic HEENT: status post trach Respiratory/Chest: lungs clear Cardiovascular: normal rate, other - Permacath Abdomen: soft, non tender, other - GT feeding Extremities: no edema Neurologic/Psychiatric: other - opens eyes Musculoskeletal: atrophy Microbiology Date/Time Source Procedure Growth Status 10/08/19 04:40 Sputum Gram Stain - Final Resulted 10/08/19 04:40 Sputum Culture - Preliminary Gram Negative Bacillus 1 Gram Negative Bacillus 2 Resulted 10/06/19 23:00 Sputum Gram Stain - Final Complete 10/06/19 23:00 Sputum Culture - Final Klebsiella Pneumoniae Esbl Enterobacter Aerogenes Proteus Mirabilis Complete Current Medications Medications (Trade) Dose Ordered Sig/Javier Route PRN Reason Start Time Stop Time Status Last Admin Dose Admin Amlodipine Besylate (Norvasc) 5 mg BID GT 10/08/19 18:00 10/25/19 08:59 10/09/19 08:45 Azathioprine (Imuran) 50 mg DAILY ORAL 10/05/19 09:00 01/03/20 08:59 10/09/19 08:45 Chlorhexidine Gluconate (Nae-Hex 2%) 1 applic DAILY@1999 TOPIC 09/17/19 20:00 12/16/19 19:59 10/08/19 21:15 Dextrose (Dextrose 50%) 25 ml Q30M PRN IV Hypoglycemia 09/02/19 06:15 12/01/19 06:14 09/04/19 12:11 Dextrose (Dextrose 50%) 50 ml Q30M PRN IV Hypoglycemia 09/02/19 06:15 12/01/19 06:14 Doxazosin Mesylate (Cardura) 2 mg EVERY 12 HOURS GT 10/07/19 09:00 11/06/19 08:59 10/09/19 08:43 Epoetin Thomas (Epoetin Thomas-EPBX(NON ESRD)) 4,000 unit THU-THU-THU SUBQ 10/05/19 21:00 01/03/20 20:59 10/07/19 21:15 Hydralazine HCl (Apresoline) 10 mg Q4H PRN IV BP OVER 160 SYST 10/08/19 10:30 01/06/20 10:29 Hydralazine HCl (Apresoline) 50 mg Q6HR GT 10/09/19 12:00 01/07/20 11:59 Lansoprazole (Prevacid) 30 mg EVERY 12 HOURS GT 10/08/19 21:00 10/27/19 08:59 10/09/19 08:45 Levothyroxine Sodium (Synthroid) 125 mcg DAILY@0630 ORAL 09/22/19 06:30 10/22/19 06:29 10/09/19 06:47 Losartan Potassium (Cozaar) 100 mg DAILY GT 10/06/19 09:00 11/05/19 08:59 10/09/19 08:44 Metoprolol Tartrate (Lopressor) 12.5 mg Q12HR GT 10/08/19 21:00 12/30/19 08:59 10/09/19 08:44 Piperacillin Sod/ Tazobactam Sod 2.25 gm/Dextrose 55 ml @ 110 mls/hr Q8HR IVPB 10/06/19 06:00 10/11/19 05:59 10/09/19 06:47 Prednisone (predniSONE) 30 mg DAILY ORAL 10/03/19 09:00 11/02/19 08:59 10/09/19 08:46 Psyllium Hydrophilic Mucilloid (Metamucil) 1 pkt DAILY ORAL 09/22/19 15:00 10/22/19 14:59 10/09/19 08:46 Sevelamer Carbonate (Renvela) 800 mg Q8HR NG 09/25/19 14:00 12/24/19 13:59 10/09/19 06:47 Warren Parks MD Oct 09, 2019 10:58
[2019-10-09 12:00] VITALS: BP 156/72
--- NOTE | 2019-10-09 14:07 | Nephrology Progress Note ---
Assessment/Plan Problem List: (1) Liver enzyme elevation Assessment: Acute (2) ESRD (end stage renal disease) on dialysis (3) Malnutrition (4) Anemia in CKD (chronic kidney disease) (5) Hypotension (6) Thrombocytopenia (7) Sepsis Assessment: klebsiella in blood Assessment -Early sepsis with shock. -Healthcare-associated pneumonia. -Severe protein-calorie malnutrition. -Thrombocytopenia. - End-stage renal disease. - History of hypertension. - Bradycardia. - HypoThyroid Plan On prednisone and Imuran Will adjust blood pressure medications Had 2 sets of blood culture October 04, culture results are negative Chest x-ray suggests new infiltrate: Right perihilar infiltrate, new since prior study of 09/21/2019 Hemodialysis done October 07 Can DC femoral dialysis catheter Patient had a right upper chest tunneled catheter placed October 06 Previously patient white blood cell counts mario, unclear if it is due to steroids or an underlying infectious process Smooth muscle antibody positive, Ig G elevated Liver enzymes elevated but declining Tracheostomy September 07 Last dialysis September 26, next dialysis today October 02 Chest tube on the left side was put in on September 01 was discontinued September 07 Patient transfused 3 units of packed RBCs for low hemoglobin Remains full code Blood pressure fluctuating, will start hydralazine via NG tube for blood pressure Magnesium and potassium supplement intravenously as needed Patient underwent PEG placement August 16 patient remains intubated on ventilator Discussed with RN Aim to wean from ventilator or consider tracheostomy Permacath was removed on August 12 Dialysis 08/11 Transfusion as needed Patient had hematemesis meds IV as possible Surveillance blood cultures tomorrow Plan to put the permacath back in on Thursday if cultures are negative keep BP and BS in check Inflammatory markers per orders Subjective ROS Limited/Unobtainable: Yes Objective Objective Last 24 Hour Vital Signs Date Time Temp Pulse Resp B/P (MAP) Pulse Ox O2 Delivery O2 Flow Rate FiO2 10/09/19 12:49 156/72 10/09/19 12:00 97.2 60 18 156/72 (100) 100 10/09/19 12:00 Mechanical Ventilator 10/09/19 12:00 21 10/09/19 11:52 58 10/09/19 10:55 53 19 21 10/09/19 08:45 60 181/79 10/09/19 08:44 60 181/79 10/09/19 08:44 181/79 10/09/19 08:00 Mechanical Ventilator 10/09/19 08:00 96.4 60 18 181/79 (113) 100 10/09/19 08:00 21 10/09/19 07:59 62 10/09/19 07:00 60 19 21 10/09/19 06:47 172/77 10/09/19 04:53 61 18 21 10/09/19 04:00 Mechanical Ventilator 10/09/19 04:00 21 10/09/19 04:00 97.2 60 18 172/77 (108) 100 10/09/19 03:45 58 10/09/19 03:19 65 19 21 10/09/19 01:20 59 18 21 10/09/19 00:17 162/83 10/09/19 00:00 21 10/09/19 00:00 Mechanical Ventilator 10/09/19 00:00 96.8 62 18 162/83 (109) 100 10/08/19 23:54 60 10/08/19 23:10 65 18 21 10/08/19 21:17 65 166/62 10/08/19 20:50 70 19 21 10/08/19 20:00 Mechanical Ventilator 10/08/19 20:00 97.3 62 18 166/62 (96) 100 10/08/19 20:00 21 10/08/19 19:20 67 10/08/19 19:10 68 18 21 10/08/19 16:00 21 10/08/19 16:00 98.4 65 20 144/71 (95) 100 10/08/19 16:00 Mechanical Ventilator 10/08/19 15:13 77 10/08/19 15:03 83 23 21 Intake and Output 10/08/19 10/09/19 19:00 07:00 Intake Total 605 ml 670 ml Output Total 1250 ml 350 ml Balance -645 ml 320 ml Intake Free Water 220 ml 300 ml IV Total 55 ml Tube Feeding 385 ml 315 ml Output Urine Total 250 ml 350 ml Hemodialysis UF 1000 ml # Bowel Movements 1 2 No labs drawn today Height (Feet): 5 Height (Inches): 4.00 Weight (Pounds): 112 General Appearance: no apparent distress, lethargic EENT: other - Trach and vent Cardiovascular: bradycardia Respiratory/Chest: decreased breath sounds Abdomen: other - PEG in place Objective no change William Blackwood MD Oct 09, 2019 14:07
[2019-10-09 16:00] VITALS: BP 146/65
[2019-10-09 20:00] VITALS: BP 137/61
--- NOTE | 2019-10-09 21:52 | Surgery Progress Note ---
Surgery Progress Note Subjective Procedure Performed 1. tracheostomy 2 removal of left tube thoracostomy Additional Comments no acute events comfortable appearing on support Objective Last 24 Hour Vital Signs Date Time Temp Pulse Resp B/P (MAP) Pulse Ox O2 Delivery O2 Flow Rate FiO2 10/09/19 21:07 62 19 21 10/09/19 20:00 70 10/09/19 20:00 Mechanical Ventilator 10/09/19 20:00 97.9 70 18 137/61 (86) 98 10/09/19 20:00 21 10/09/19 19:12 59 19 21 10/09/19 18:25 98 146/65 10/09/19 18:24 146/65 10/09/19 16:02 Mechanical Ventilator 10/09/19 16:01 21 10/09/19 16:00 97.2 64 20 146/65 (92) 100 10/09/19 16:00 98 10/09/19 15:33 62 10/09/19 15:00 60 18 21 10/09/19 12:49 156/72 10/09/19 12:00 97.2 60 18 156/72 (100) 100 10/09/19 12:00 Mechanical Ventilator 10/09/19 12:00 21 10/09/19 11:52 58 10/09/19 10:55 53 19 21 10/09/19 08:45 60 181/79 10/09/19 08:44 60 181/79 10/09/19 08:44 181/79 10/09/19 08:00 Mechanical Ventilator 10/09/19 08:00 96.4 60 18 181/79 (113) 100 10/09/19 08:00 21 10/09/19 07:59 62 10/09/19 07:00 60 19 21 10/09/19 06:47 172/77 10/09/19 04:53 61 18 21 10/09/19 04:00 Mechanical Ventilator 10/09/19 04:00 21 10/09/19 04:00 97.2 60 18 172/77 (108) 100 10/09/19 03:45 58 10/09/19 03:19 65 19 21 10/09/19 01:20 59 18 21 10/09/19 00:17 162/83 10/09/19 00:00 21 10/09/19 00:00 Mechanical Ventilator 10/09/19 00:00 96.8 62 18 162/83 (109) 100 10/08/19 23:54 60 10/08/19 23:10 65 18 21 I&O Intake and Output 10/08/19 10/09/19 19:00 07:00 Intake Total 605 ml 670 ml Output Total 1250 ml 350 ml Balance -645 ml 320 ml Intake Free Water 220 ml 300 ml IV Total 55 ml Tube Feeding 385 ml 315 ml Output Urine Total 250 ml 350 ml Hemodialysis UF 1000 ml # Bowel Movements 1 2 Dressing: other Wound: other Drains: other Cardiovascular: RSR Respiratory: decreased breath sounds Abdomen: soft, non-tender, present bowel sounds Extremities: no tenderness, no cyanosis Assessment Post-op Diagnosis same Plan Problems: (1) Malnutrition Assessment & Plan: DAILY ESTIMATED NEEDS: Needs based on ESRD+ HD, underweight, wound/ 39.5kg 35-40 kcals/kg 4642-9388 total kcals 1.25-1.8 g protein/kg 49-71 g total protein 20-22 mL/kg 790-869 total fluid mLs NUTRITION DIAGNOSIS: * Increased kcal and protein needs r/t underweight status, HD needs, wuond healing as evidenced by pt is underweight per guidelines, ESRD, on HD, admitted non-blanching erythema wounds @ BL heels and sacrum * Swallowing difficulty R/T dysphagia as evidenced by [employer] recommends temporary nonoral feeding at this time, s/p NGT insertion, on NGT feeding-> now s/p self removal, NPO. CURRENT TF:NPO PO DIET RECOMMENDATIONS: WHEN SAFE FOR ORAL DIET -> renal/ texture per [employer] ENTERAL NUTRITION RECOMMENDATIONS: W/ GI access: Nepro @ 35ml/hr x 22 hrs to provide 770ml, 1386kcal, 62g prot, 560ml free water * W/ GI access, resume TF on Nepro * Initiate Nepro @ 15ml/hr x 6 hrs, advance 10ml q 4-6 hrs as tolerated to goal rate. * Hold 1 hour before and after Synthroid med * HOB over 30 degrees/ water flush per MD. ADDITIONAL RECOMMENDATIONS: 1) Calibrated bed scale wt for accurate CBW -> daily wt monitoring Per HD record: dry wt on 07/30=39.5kg (87lbs) 2) Wound care: (W/ GI access) add Nephorivte x 1 + Balta BID 3) Monitor NPO status: without GI access at this time, s/p pulling out NGT 4) Monitor for hypoglycemia while NPO 5) Monitor for continuity of HD (2) Septic arthritis Assessment & Plan: Pt presented on admission with generalized scaly rash . pt noted to be restless and scratching at skin. Bleeding from oral mucosa noted. Joint deformity noted to R shoulder. Surgical incision approximated with 11 sutures. Erythema but no exudate,or elevation in skin temp at site of incision. Historical incision R hip that is tunneled.Small amt seropurulent exudate noted. Periwound is erythematous,but no elevation in skin temp noted. No odor noted. Non-blanching erythema noted to sacrum. Perianal area is erythematous and excoriated. L heel is boggy with non-blanching erythema. R heel is soft with non-blanching erythema. No evidence of skin breakdown to all other bony prominences. Tx.plan: Cover R shoulder with Drsg and change daily and prn. Cleanse R hip wound with Saline. Apply Therahoney.Apply Cavilon Skin Barrier periwound. Cover with Optifoam drsg. Change every 3 days and prn. Apply Moisture Barrier Paste to perianal area and buttocks. Cover Sacrum with Optifoam drsg. Change every 3 days and prn. Apply Cavilon Skin Barrier to both heels. Cover each heel with Optifoam drsg. Change every 7 days and prn. APM/ELVIA Mattress overlay. Reposition at least every 2hours or as tolerated. Off-load heels with pillow. HD cath necessary HD as renal likely will need intubation 19 x 11 x 11 mm hypoechoic area in the liver adjacent to the gallbladder fossa. Although location is typical for area of focal sparing in a fatty liver, there are no findings to indicate fatty liver and this is a new finding since fairly recent previous exam. Therefore the possibility of a process such as small abscess should be considered. Atrophic echogenic kidneys Negative for gallstones or dilated bile ducts (3) Wound, open, hip or thigh with complication Assessment & Plan: slow healing will need nutritional optimization difficult ng tube peg when stable sutures removed from right shoulder comfortable wean vent may need trach (4) Abscess of right hip (5) possible septic arthritis (6) Renal failure (ARF), acute on chronic Assessment & Plan: cont HD will need tunneled cath placement okay to use fem line for now but will need change soon. line monitored and clean dressings going well (7) Pneumonia Assessment & Plan: intubated on vent support not tolerating weaning may need trach hemothorax likely after thoracentesis Chest CT noted Left chest tube placed With plan for trach chest tube can be considered but overall prognosis is very poor s/p trach left chest tub eout cxr noted and okay downgrade left pleural effusion dressings saturated will need to monitor. may need another chest tube as may not heal well on left side Anasarca, with as mentioned above diffuse edema of the soft tissues, trace ascites, and bilateral pleural effusions No hepatic abnormality to correlate with suspected small pericholecystic lesion in the liver described on recent sonogram. The lesion may be occult on noncontrast CT, may have been artifactual or may have resolved in the interim. Consider repeat sonography in a few days to assess progression No definite acute abdominal process otherwise Improved but still sizable left pleural effusion with minimal residual hemoperitoneum since prior CT scan of 09/01/2019. There is near complete atelectasis of the left lower lobe. There is a small right pleural effusion with atelectatic changes of the right lower lobe and right perihilar dense consolidation. These appear improved since a prior CT of 09/01/2019 Increased crazy paving type opacity within the right middle lobe since previous August [address], may reflect an area of increasing infiltrate, versus focal edema. There is also some dense consolidation of the perihilar right lower lobe which is improved since the previous August 31 CT Right groin temporary dialysis catheter in good position Atrophic kidneys, consistent with known history of chronic renal disease L2 compression fracture deformity, and advanced degenerative changes of the L2- L3 disc. Similar to prior study Marroquin catheter hold on repeat chest tube (8) Liver enzyme elevation Assessment & Plan: likely shock liver improving trend trending down will monitor Camilo James Oct 09, 2019 21:52
[2019-10-09] MEDS: Dyna-Hex 2% Top Sol 2oz TOPIC SCH (22:38)
[2019-10-10] VITALS: BP 144/65
--- NOTE | 2019-10-10 01:00 | Progress Note ---
DATE: 10/08/2019 LATE ENTRY SUBJECTIVE: The patient is on ventilator support. Antimicrobials are ongoing for new respiratory infection. She is status post G-tube and tracheostomy. She also had a chest tube for hemothorax. She now has sinus bradycardic episodes. PHYSICAL EXAMINATION: VITAL SIGNS: Blood pressure 155/75, pulse 57, respiratory rate 20, afebrile. LUNGS: Coarse breath sounds. Rhonchi. Thin secretions CARDIAC: Regular rhythm, slow rate. Normal S1, S2. ABDOMEN: Soft. EXTREMITIES: No edema. LABORATORY AND DIAGNOSTIC DATA: Labs notable for white count 7.7, hemoglobin 10. AST and ALT 120 and 172, alkaline phosphatase 380. Potassium 4.1. Magnesium 2.9. Albumin 2. IMPRESSION: 1. Respiratory failure. 2. Healthcare acquired pneumonia. 3. Status post pneumothorax and chest tube. 4. Bradycardia. 5. Hypothyroidism. 6. Cerebrovascular disease with dementia. 7. Hypertensive heart disease. 8. Autoimmune hepatitis on steroids. PLAN: 1. Continue beta-elissa. 2. Titrate antihypertensive. 3. Antimicrobials. 4. Respiratory hygiene. 5. Followup liver function studies. Abel Stubbs M.D. DR: Lety JOB#: [id number] CC:
--- NOTE | 2019-10-10 01:14 | Progress Note ---
DATE: 10/09/2019 CARDIOLOGY PROGRESS NOTE SUBJECTIVE: Heart rate slightly better off beta-blockers but blood pressure parameters are increasing. Status post PermCath, remains on vent support via trach. PHYSICAL EXAMINATION: LUNGS: Bilateral breath sounds with few rhonchi. Thin secretions. HEART: Regular rhythm and rate. Normal S1, S2. No murmur. ABDOMEN: Soft. G-tube intact. EXTREMITIES: Trace edema. IMPRESSION: 1. End-stage renal disease. 2. Hypertensive heart disease. 3. Respiratory failure with tracheostomy. 4. Dementia and dysphagia with G-tube. 5. Hypertensive heart disease with rising blood pressure. 6. Bradycardia, better off beta-blockers. 7. Transaminitis presumably due to autoimmune hepatitis. PLAN: 1. Advance antihypertensives, remain off beta-blockers. 2. Continue thyroid replacement as presently in euthyroid state. 3. Antimicrobials. 4. Respiratory hygiene. 5. Ventilator support. 6. Discharge planning. Abel Stubbs M.D. DR: Lety JOB#: [id number] CC:
[2019-10-10 04:00] VITALS: BP 156/75
[2019-10-10] MEDS: Piperacillin/Tazobactam 2.25 GM in D5W 55 ML IVPB SCH ×4 (05:58→17:13)
[2019-10-10] MEDS: Renvela 800mg Pkt NG SCH (05:59)
[2019-10-10] MEDS: Levothyroxine 125mcg tab ORAL SCH (05:59)
[2019-10-10] MEDS ORDERED: HydrALAZINE 50mg tab GT SCH (06:00)
[2019-10-10 06:01] LABS: HEMATOCRIT 20.3 % (37.0-47.0); HEMOGLOBIN 7.1 G/DL (12.0-16.0); MEAN CORPUSCULAR VOLUME 88 FL (80-99); PLATELET COUNT 180 K/UL (150-450); RED CELL DISTRIBUTION WIDTH 14.7 % (11.6-14.8)
[2019-10-10 06:40] LABS: ALANINE AMINOTRANSFERASE 51 U/L (12-78); ALBUMIN 1.9 G/DL (3.4-5.0); ALBUMIN/GLOBULIN RATIO 0.4 (1.0-2.7); ALKALINE PHOSPHATASE 285 U/L (46-116); ANION GAP 13 mmol/L (5-15); ASPARTATE AMINO TRANSFERASE 57 U/L (15-37); BILIRUBIN,TOTAL 0.4 MG/DL (0.2-1.0); BLOOD UREA NITROGEN 104 mg/dL (7-18); CALCIUM 8.4 MG/DL (8.5-10.1); CARBON DIOXIDE 24 MMOL/L (21-32); CHLORIDE 100 MMOL/L (98-107); CREATININE 2.8 MG/DL (0.55-1.30); GAMMA GLUTAMYL TRANSPEPTIDASE 59 U/L (5-85); PHOSPHORUS 2.1 MG/DL (2.5-4.9); POTASSIUM 3.2 MMOL/L (3.5-5.1); SODIUM 137 MMOL/L (136-145)
--- NOTE | 2019-10-10 06:42 | Hematology/Onc Progress Note ---
Assessment/Plan Assessment/Plan # Thrombocytopenia ow THROMBOCYTOSIS - potential causes multifactorial, evaluate liver and viral etiologies to begin, in this case due to sepsis with septic shock also with cirrhosis and liver disease --> Hep panel and HIV ordered --> neg --> US abd to evaluate for cirrhosis and hsm ordered --> reviewed --> Peripheral smear ordered to evaluate for blasts /schistocytes --> none noted --> abx and other meds have been reviewed --> ok for ppx if plt >50k w/ either heparin or lovenox --> Transfuse if Plt < 20k and fever, or if Plt < 10k without fever --> okay for permacath change once plt better--> for 08/14 --> plt trend: 43-->83-->237k-->292-->341-->315-->388 -->444-->530-->252k-->344- >529->525k-->273 # Anemia of chronic disease due to underlying chronic medical issues, multifactorial v Gi bleed --> Anemia workup has been ordered, rule out gi bleed --> No evidence of hemolysis is noted, peripheral smear has been reviewed. --> Hgb goal >7. Transfuse prn. --> Epogen has been started --> HOLD OFF IRON ferritin is >1000 --> Medications have been reviewed --> low threshold for gi evaluation in case has occult + --> hgb 9-->6.7-->9.2 -->10.5-->10.6 -->10.7-->10-->10.5-->9.8-->10.4-->9.5--> 3.6-->9.6-->9.7-->10-->10.3-->11->9.9->8.3->8.7-->8.1-->8.9-->7.4->9.2-->7.1 --> blood tx: 08/11, 08/31, 10/03 --> CT Chest r/o hemothorax --> does show confirmation of a large left hemothorax. Complete atelectasis of the left lower lobe and partial left upper lobe atelectasis demonstrated. Mild rightward shift of the heart and mediastinum. --> stool ob negative # Leukocytosis with Sepsis with shock. --> abx as per id, recs noted--> off abx --> pressors as needed --> IS now on steriods # Healthcare-associated pneumonia. --> recs reviewed --> abx: jung/micafungin-->jung-->off --> 08/24 us chest: moderate left pleural effusion # Severe protein-calorie malnutrition. --> nutritional support # End-stage renal disease --> had as renal hd --> with permacath # History of hypertension. --> per cards, now with Bradycardia. # Resp failure s/p vent/trach # HypoThyroid # Ngt feedings # Dvt ppx scd's The timing of this note does not necessarily reflect the time of the patient was seen. Greatly appreciate consultation. Subjective Constitutional: Denies: no symptoms, chills, fever, malaise, weakness, other HEENT: Denies: no symptoms, eye pain, blurred vision, tearing, double vision, ear pain, ear discharge, nose pain, nose congestion, throat pain, throat swelling, mouth pain, mouth swelling, other Cardiovascular: Denies: no symptoms, chest pain, edema, irregular heart rate, lightheadedness, palpitations, syncope, other Respiratory: Denies: no symptoms, cough, shortness of breath, SOB with excertion, SOB at rest, sputum, wheezing, other Gastrointestinal/Abdominal: Denies: no symptoms, abdomen distended, abdominal pain, black stools, tarry stools, blood in stool, constipated, diarrhea, difficulty swallowing, nausea, poor appetite, poor fluid intake, rectal bleeding , vomiting, other Genitourinary: Denies: no symptoms, burning, discharge, frequency, flank pain, hematuria, incontinence, pain, urgency, other Neurologic/Psychiatric: Denies: no symptoms, anxiety, depressed, emotional problems, headache, numbness, paresthesia, pre-existing deficit, seizure, tingling, tremors, weakness, other Endocrine: Denies: no symptoms, excessive sweating, flushing, intolerance to cold, intolerance to heat, increased hunger, increased thirst, increased urine, unexplained weight gain, unexplained weight loss, other Allergies: Coded Allergies: VANCOMYCIN (Unverified Allergy, Unknown, 08/02/19) Subjective 08/11: no bleeding or chills, labs reviewed, no major bleeding, plt less than 50k 08/12: icu, s/p blood, hgb improved to 9.2, 08/14: icu, pending consent for thora and permacath, labs reviewed 08/15: new permacath placed, no bleeding, for hd, plt much improved, started lovenox sq 08/16: ett to be adjusted, bp on high end, micafungin started, possible bronch 08/17: weaning as per pulm, no events otherwise, labs noted 08/18: no events no bleeding, remains confused on vent, for hd 08/20: icu, failed to wean, labs reviewed, jung 08/21: resting in bed, no overnight events, labs reviewed 08/22: awake, confused, restraints, no overnight events 08/23: no events, no bleeding, on ppi bid 08/24: icu, failed to wean, labs reviewed 08/25: no overnight events, us chest, restraints, afebrile 08/26 difficult in weaning, nad, seen by surg, pulm labs noted 08/27 awake on restraints, thoracentesis for am, labs reviewed 08/29 no bleeding, no night sweats, no major changes, on ppi bid 08/30 no major events, remains on vent, no bleeding, dw pcp 08/31 hgb dropped to 3.6, has been transfused with prbc, in icu, dw Rn, ct chest pend 09/01 no major events, no bleeding, labs noted, hgb remains low, hgb 9.6 09/03 lethargic, left chest tube dry/intact, off abx, vent 09/04 remains on a vent, synthroid, labs reviewed 09/05 awake and alert, no acute events, hgb 9.8, no new orders 09/06 no bleeding or chills, labs noted, no major events overnight, david rn 09/07 no events, no night sweats, no bleeding, no fc, remains agitated in the am 09/08 remains in the icu, trach was done, on vent, abx off, on epo 09/10 transferred to sdu, restraints, vent, labs reviewed 09/11 tube feeds have been ongoing, no f/c, labs reviewed 09/12 no events, no bleeding, no night sweats, hgb 10 09/13 tsh is improved, remains confused, hgb is 11, no bleeding 09/14 no events, no bleeding, labs noted, vitals stable 09/15 confused, no acute events, restraints, dc planning 09/17 no new changes, no recent labs, placement pending 09/18 no events, no bleeding, no night sweats, fevers 09/19 nonverbal, vent, elevated bp, off abx 09/20 labs reviewed, david rn, no bleeding, meds reviewed 09/21 is a+o x 1, nonverbal, no bleeding, labs reviewed, no night sweats 09/22 no major events, no bleeding, no night sweats, no f/c, labs noted hgb 10.5 09/25 no events, no bleeding, labs noted, cbc reviewed 09/26 no events, with gtube feeds ongoing and with event, labs noted 09/27 labs have been reviewed, no night sweats, no fc 09/28 labs reviewed, no night sweats, hgb lower, but holding off on transfusion 09/29 alert, stool ob negative, h/h stable, dc planning 10/01 sdu, tsh improved, labs reviewed, elevated bp 10/02 no major events, no bleeding, labs reviewed, hgb 8, nv 10/03 no changes, labs reviewed, cbc noted, no bleeding, hgb 6.7, to get 1 unit prbc 10/04 labs noted, no bleeding epogen has been started, hgb 7.4, on epo 10/05 labs have been reviewed, no bleeding, hg low, no bleeding, confused 10/06 remains confused, japanese speaking, with right abigail intact 10/08 on vent, with right permacath, and right abigail, labs noted 10/09 labs are noted, tfs are infusing, meds reviewed, no bleeding, hgb 7.1 Objective Objective Current Medications Medications (Trade) Dose Ordered Sig/Javier Route PRN Reason Start Time Stop Time Status Last Admin Dose Admin Amlodipine Besylate (Norvasc) 5 mg BID GT 10/08/19 18:00 10/25/19 08:59 10/09/19 18:25 Azathioprine (Imuran) 50 mg DAILY ORAL 10/05/19 09:00 01/03/20 08:59 10/09/19 08:45 Chlorhexidine Gluconate (Nae-Hex 2%) 1 applic DAILY@2000 TOPIC 09/17/19 20:00 12/16/19 19:59 10/09/19 22:38 Dextrose (Dextrose 50%) 25 ml Q30M PRN IV Hypoglycemia 09/02/19 06:15 12/01/19 06:14 09/04/19 12:11 Dextrose (Dextrose 50%) 50 ml Q30M PRN IV Hypoglycemia 09/02/19 06:15 12/01/19 06:14 Doxazosin Mesylate (Cardura) 2 mg EVERY 12 HOURS GT 10/07/19 09:00 11/06/19 08:59 10/09/19 22:39 Epoetin Thomas (Epoetin Thomas-EPBX(NON ESRD)) 4,000 unit SUBQ 10/05/19 21:00 01/03/20 20:59 10/07/19 21:15 Hydralazine HCl (Apresoline) 10 mg Q4H PRN IV BP OVER 160 SYST 10/08/19 10:30 01/06/20 10:29 Hydralazine HCl (Apresoline) 100 mg Q8HR GT 10/10/19 06:00 01/08/20 05:59 10/10/19 05:59 Lansoprazole (Prevacid) 30 mg EVERY 12 HOURS GT 10/08/19 21:00 10/27/19 08:59 10/09/19 22:38 Levothyroxine Sodium (Synthroid) 125 mcg DAILY@0630 ORAL 09/22/19 06:30 10/22/19 06:29 10/10/19 05:59 Losartan Potassium (Cozaar) 100 mg DAILY GT 10/06/19 09:00 11/05/19 08:59 10/09/19 08:44 Piperacillin Sod/ Tazobactam Sod 2.25 gm/Dextrose 55 ml @ 110 mls/hr Q8HR IVPB 10/06/19 06:00 10/11/19 05:59 10/10/19 05:58 Prednisone (predniSONE) 30 mg DAILY ORAL 10/03/19 09:00 11/02/19 08:59 10/09/19 08:46 Psyllium Hydrophilic Mucilloid (Metamucil) 1 pkt DAILY ORAL 09/22/19 15:00 10/22/19 14:59 10/09/19 08:46 Sevelamer Carbonate (Renvela) 800 mg Q8HR NG 09/25/19 14:00 12/24/19 13:59 10/10/19 05:59 Last 24 Hour Vital Signs Date Time Temp Pulse Resp B/P (MAP) Pulse Ox O2 Delivery O2 Flow Rate FiO2 10/10/19 05:59 144/65 10/10/19 04:00 21 10/10/19 04:00 Mechanical Ventilator 10/10/19 03:34 65 10/10/19 03:07 66 18 21 10/10/19 01:13 67 18 21 10/10/19 00:00 21 10/10/19 00:00 69 10/10/19 00:00 98.2 73 18 144/65 (91) 99 10/09/19 23:53 Mechanical Ventilator 10/09/19 23:15 61 18 21 10/09/19 21:07 62 19 21 10/09/19 20:00 70 10/09/19 20:00 Mechanical Ventilator 10/09/19 20:00 97.9 70 18 137/61 (86) 98 10/09/19 20:00 21 10/09/19 19:12 59 19 21 10/09/19 18:25 98 146/65 10/09/19 18:24 146/65 10/09/19 16:02 Mechanical Ventilator 10/09/19 16:01 21 10/09/19 16:00 97.2 64 20 146/65 (92) 100 10/09/19 16:00 98 10/09/19 15:33 62 10/09/19 15:00 60 18 21 10/09/19 12:49 156/72 10/09/19 12:00 97.2 60 18 156/72 (100) 100 10/09/19 12:00 Mechanical Ventilator 10/09/19 12:00 21 10/09/19 11:52 58 10/09/19 10:55 53 19 21 10/09/19 08:45 60 181/79 10/09/19 08:44 60 181/79 10/09/19 08:44 181/79 10/09/19 08:00 Mechanical Ventilator 10/09/19 08:00 96.4 60 18 181/79 (113) 100 10/09/19 08:00 21 10/09/19 07:59 62 10/09/19 07:00 60 19 21 10/09/19 06:47 172/77 10/09/19 04:53 61 18 21 10/09/19 04:00 Mechanical Ventilator 10/09/19 04:00 21 10/09/19 04:00 97.2 60 18 172/77 (108) 100 10/09/19 03:45 58 10/09/19 03:19 65 19 21 10/09/19 01:20 59 18 21 10/09/19 00:17 162/83 10/09/19 00:00 21 10/09/19 00:00 Mechanical Ventilator 10/09/19 00:00 96.8 62 18 162/83 (109) 100 10/08/19 23:54 60 10/08/19 23:10 65 18 21 10/08/19 21:17 65 166/62 10/08/19 20:50 70 19 21 10/08/19 20:00 Mechanical Ventilator 10/08/19 20:00 97.3 62 18 166/62 (96) 100 10/08/19 20:00 21 10/08/19 19:20 67 10/08/19 19:10 68 18 21 10/08/19 16:00 21 10/08/19 16:00 98.4 65 20 144/71 (95) 100 10/08/19 16:00 Mechanical Ventilator 10/08/19 15:13 77 10/08/19 15:03 83 23 21 10/08/19 12:00 91.5 56 20 159/74 (102) 100 10/08/19 12:00 21 10/08/19 12:00 Mechanical Ventilator 10/08/19 11:40 48 10/08/19 11:05 53 18 21 10/08/19 08:33 57 10/08/19 08:32 57 165/75 10/08/19 08:30 165/75 10/08/19 08:01 55 10/08/19 08:00 Mechanical Ventilator 10/08/19 08:00 97.6 57 20 165/75 (105) 98 10/08/19 08:00 21 10/08/19 07:45 60 19 21 Intake and Output 10/09/19 10/10/19 19:00 07:00 Intake Total 895 ml 605 ml Output Total 150 ml 50 ml Balance 745 ml 555 ml Intake Free Water 200 ml 100 ml IV Total 55 ml 55 ml Tube Feeding 420 ml 350 ml Other 220 ml 100 ml Output Urine Total 150 ml 50 ml # Bowel Movements 4 3 Labs Test 10/08/19 03:00 10/08/19 03:20 10/10/19 03:40 White Blood Count 7.7 K/UL (4.8-10.8) 10.0 K/UL (4.8-10.8) Red Blood Count 3.32 M/UL (4.20-5.40) 2.30 M/UL (4.20-5.40) Hemoglobin 10.0 G/DL (12.0-16.0) 7.1 G/DL (12.0-16.0) Hematocrit 29.4 % (37.0-47.0) 20.3 % (37.0-47.0) Mean Corpuscular Volume 89 FL (80-99) 88 FL (80-99) Mean Corpuscular Hemoglobin 30.2 PG (27.0-31.0) 31.0 PG (27.0-31.0) Mean Corpuscular Hemoglobin Concent 34.1 G/DL (32.0-36.0) 35.0 G/DL (32.0-36.0) Red Cell Distribution Width 14.3 % (11.6-14.8) 14.7 % (11.6-14.8) Platelet Count 175 K/UL (150-450) 180 K/UL (150-450) Mean Platelet Volume 5.7 FL (6.5-10.1) 5.2 FL (6.5-10.1) Neutrophils (%) (Auto) 70.0 % (45.0-75.0) % (45.0-75.0) Lymphocytes (%) (Auto) 28.7 % (20.0-45.0) % (20.0-45.0) Monocytes (%) (Auto) 1.1 % (1.0-10.0) % (1.0-10.0) Eosinophils (%) (Auto) 0.1 % (0.0-3.0) % (0.0-3.0) Basophils (%) (Auto) 0.2 % (0.0-2.0) % (0.0-2.0) Sodium Level 137 MMOL/L (136-145) Potassium Level 4.3 MMOL/L (3.5-5.1) Chloride Level 98 MMOL/L (98-107) Carbon Dioxide Level 22 MMOL/L (21-32) Anion Gap 17 mmol/L (5-15) Blood Urea Nitrogen 191 mg/dL (7-18) Creatinine 4.4 MG/DL (0.55-1.30) Estimat Glomerular Filtration Rate 9.6 mL/min (>60) Glucose Level 279 MG/DL (74-106) Calcium Level 8.6 MG/DL (8.5-10.1) Total Bilirubin 0.5 MG/DL (0.2-1.0) Aspartate Amino Transf (AST/SGOT) 120 U/L (15-37) Alanine Aminotransferase (ALT/SGPT) 172 U/L (12-78) Alkaline Phosphatase 380 U/L (46-116) Total Protein 7.5 G/DL (6.4-8.2) Albumin 2.0 G/DL (3.4-5.0) Globulin 5.5 g/dL Albumin/Globulin Ratio 0.4 (1.0-2.7) Phosphorus Level 5.3 MG/DL (2.5-4.9) Magnesium Level 2.9 MG/DL (1.8-2.4) Height (Feet): 5 Height (Inches): 4.00 Weight (Pounds): 112 Objective Physical Exam vitals: reviewed gen: nad pulm: on trach+ / vent, decreased breath sounds left, right perm+ cv: rrr, no gmr abd: sfot, nt, nd ++ gt ext: no cce + right Gio Rosa MD Oct 10, 2019 06:42
[2019-10-10 08:00] VITALS: BP 144/76
--- NOTE | 2019-10-10 08:44 | General Progress Note ---
Assessment/Plan Status: stable, not improved, unchanged, deteriorating Assessment/Plan: Assessment - Severe ulcerative esophagitis - mild elevation in LFT, Hepatitis B/C negative --> now sudden rise - ? related to new 1.9 cm mass near GB - ? autoimmune / high ESR - abnormal liver on CT - ? chronic disease / fibrosis - Resp failure - trach - s/p recent Chest tube and removal - Renal failure - aspiration risk --> s/p PEG - anemia - bradycardia - Poor prognosis Recommendations - CT reviewed - check autoimmune markers - pending>>> neg JOLIE - check AFP - GT care - water flushes - elevate HOB - monitor H&H - ppi patient poor candidate for GI procedures - vent -patient not a candidate for liver biopsy -given elevated SM Ab and igg, neg hepatitis panel >>>started prednisone 30 mg>> > will decrease 25 mg - imuran 50 mg -fu LFTS -drop in H&H without obvious bleeding>>> repeat cbc Subjective ROS Limited/Unobtainable: No Allergies: Coded Allergies: VANCOMYCIN (Unverified Allergy, Unknown, 08/02/19) Subjective s/p blood transfusion Objective Last 24 Hour Vital Signs Date Time Temp Pulse Resp B/P (MAP) Pulse Ox O2 Delivery O2 Flow Rate FiO2 10/10/19 06:55 84 18 21 10/10/19 05:59 144/65 10/10/19 04:00 21 10/10/19 04:00 Mechanical Ventilator 10/10/19 04:00 98.1 67 16 156/75 (102) 100 10/10/19 03:34 65 10/10/19 03:07 66 18 21 10/10/19 01:13 67 18 21 10/10/19 00:00 21 10/10/19 00:00 69 10/10/19 00:00 98.2 73 18 144/65 (91) 99 10/09/19 23:53 Mechanical Ventilator 10/09/19 23:15 61 18 21 10/09/19 21:07 62 19 21 10/09/19 20:00 70 10/09/19 20:00 Mechanical Ventilator 10/09/19 20:00 97.9 70 18 137/61 (86) 98 10/09/19 20:00 21 10/09/19 19:12 59 19 21 10/09/19 18:25 98 146/65 10/09/19 18:24 146/65 10/09/19 16:02 Mechanical Ventilator 10/09/19 16:01 21 10/09/19 16:00 97.2 64 20 146/65 (92) 100 10/09/19 16:00 98 10/09/19 15:33 62 10/09/19 15:00 60 18 21 10/09/19 12:49 156/72 10/09/19 12:00 97.2 60 18 156/72 (100) 100 10/09/19 12:00 Mechanical Ventilator 10/09/19 12:00 21 10/09/19 11:52 58 10/09/19 10:55 53 19 21 10/09/19 08:45 60 181/79 10/09/19 08:44 60 181/79 10/09/19 08:44 181/79 Intake and Output 10/09/19 10/10/19 19:00 07:00 Intake Total 895 ml 660 ml Output Total 150 ml 50 ml Balance 745 ml 610 ml Intake Free Water 200 ml 100 ml IV Total 55 ml 110 ml Tube Feeding 420 ml 350 ml Other 220 ml 100 ml Output Urine Total 150 ml 50 ml # Bowel Movements 4 3 Laboratory Tests 10/10/19 03:40: White Blood Count 10.0, Red Blood Count 2.30L, Hemoglobin 7.1L, Hematocrit 20.3L , Mean Corpuscular Volume 88, Mean Corpuscular Hemoglobin 31.0, Mean Corpuscular Hemoglobin Concent 35.0, Red Cell Distribution Width 14.7, Platelet Count 180, Mean Platelet Volume 5.2L, Neutrophils (%) (Auto) , Lymphocytes (%) ( Auto) , Monocytes (%) (Auto) , Eosinophils (%) (Auto) , Basophils (%) (Auto) , Neutrophils % (Manual) [Pending], Lymphocytes % (Manual) [Pending], Platelet Estimate [Pending], Platelet Morphology [Pending], Sodium Level 137, Potassium Level 3.2L, Chloride Level 100, Carbon Dioxide Level 24, Anion Gap 13, Blood Urea Nitrogen 104H, Creatinine 2.8H, Estimat Glomerular Filtration Rate 16.3, Glucose Level 155H, Calcium Level 8.4L, Phosphorus Level 2.1L, Magnesium Level 2.4, Total Bilirubin 0.4, Gamma Glutamyl Transpeptidase 59, Aspartate Amino Transf (AST/SGOT) 57H, Alanine Aminotransferase (ALT/SGPT) 51, Alkaline Phosphatase 285H, C-Reactive Protein, Quantitative 4.8H, Pro-B-Type Natriuretic Peptide > 44762K, Total Protein 6.2L, Albumin 1.9L, Globulin 4.3, Albumin/ Globulin Ratio 0.4L Height (Feet): 5 Height (Inches): 4.00 Weight (Pounds): 112 General Appearance: no apparent distress EENT: normal ENT inspection Neck: normal alignment Cardiovascular: normal rate Respiratory/Chest: decreased breath sounds Abdomen: normal bowel sounds, non tender, soft Extremities: non-tender Kenny Rudolph MD Oct 10, 2019 08:44
[2019-10-10] MEDS: Doxazosin 1mg Tab GT SCH ×2 (09:40→22:47)
[2019-10-10] MEDS: Metamucil Pkt ORAL SCH (09:40)
[2019-10-10] MEDS: Losartan 50mg tab GT SCH (09:40)
[2019-10-10] MEDS: azaTHIOprine 50 MG TAB ORAL SCH (09:43)
--- NOTE | 2019-10-10 10:05 | General Progress Note ---
Assessment/Plan Problem List: (1) Failure to thrive (0-17) ICD Codes: R62.51 - Failure to thrive (0-17) SNOMED: 855487008 (2) Hypertensive kidney disease ICD Codes: I12.9 - Hypertensive chronic kidney disease with stage 1 through stage 4 chronic kidney disease, or unspecified chronic kidney disease SNOMED: 88101680 (3) Pneumonia ICD Codes: J18.9 - Pneumonia, unspecified organism SNOMED: 790280761 Qualifiers: Qualified Codes: J18.9 - Pneumonia, unspecified organism (4) ESRD (end stage renal disease) ICD Codes: N18.6 - End stage renal disease SNOMED: 99007729 (5) Septic arthritis ICD Codes: M00.9 - Pyogenic arthritis, unspecified SNOMED: 790514103 (6) Thrombocytopenia ICD Codes: D69.6 - Thrombocytopenia, unspecified SNOMED: 682126956 (7) Hypotension ICD Codes: I95.9 - Hypotension, unspecified SNOMED: 53252959 Qualifiers: Qualified Codes: I95.3 - Hypotension of hemodialysis (8) Malnutrition ICD Codes: E46 - Unspecified protein-calorie malnutrition SNOMED: 95508495 Status: stable, not improved, unchanged, deteriorating Assessment/Plan: Continue vent support. Wean as able. Suctioning and pulmonary toilet. Continue G-tube feedings. Monitor residuals bp rx Hemodialysis with ultrafiltration per nephrology. Turn every 2 hours and good skin care. monitor labs/lfts steroids/imuran per GI. iv abx transfuse 1 unit prbcs monitor h/h Discharge planning in progress Subjective ROS Limited/Unobtainable: No Constitutional: Reports: malaise, weakness HEENT: Reports: no symptoms Cardiovascular: Reports: no symptoms Respiratory: Reports: sputum Gastrointestinal/Abdominal: Reports: difficulty swallowing Genitourinary: Reports: no symptoms Neurologic/Psychiatric: Reports: pre-existing deficit Endocrine: Reports: no symptoms Hematologic/Lymphatic: Reports: anemia Allergies: Coded Allergies: VANCOMYCIN (Unverified Allergy, Unknown, 08/02/19) All Systems: reviewed and negative except above Subjective No overnight events. Remained stable on the ventilator. Awake and alert. Tolerating G-tube feeds. No fevers or chills noted. LFTs trending down. decreased h/h noted. no bleeding. On antibiotics for pneumonia. On steroids and Imuran for autoimmune hepatitis. bp still running high. Objective Last 24 Hour Vital Signs Date Time Temp Pulse Resp B/P (MAP) Pulse Ox O2 Delivery O2 Flow Rate FiO2 10/10/19 09:42 84 140/65 10/10/19 09:40 140/65 10/10/19 06:55 84 18 21 10/10/19 05:59 144/65 10/10/19 04:00 21 10/10/19 04:00 Mechanical Ventilator 10/10/19 04:00 98.1 67 16 156/75 (102) 100 10/10/19 03:34 65 10/10/19 03:07 66 18 21 10/10/19 01:13 67 18 21 10/10/19 00:00 21 10/10/19 00:00 69 10/10/19 00:00 98.2 73 18 144/65 (91) 99 10/09/19 23:53 Mechanical Ventilator 10/09/19 23:15 61 18 21 10/09/19 21:07 62 19 21 10/09/19 20:00 70 10/09/19 20:00 Mechanical Ventilator 10/09/19 20:00 97.9 70 18 137/61 (86) 98 10/09/19 20:00 21 10/09/19 19:12 59 19 21 10/09/19 18:25 98 146/65 10/09/19 18:24 146/65 10/09/19 16:02 Mechanical Ventilator 10/09/19 16:01 21 10/09/19 16:00 97.2 64 20 146/65 (92) 100 10/09/19 16:00 98 10/09/19 15:33 62 10/09/19 15:00 60 18 21 10/09/19 12:49 156/72 10/09/19 12:00 97.2 60 18 156/72 (100) 100 10/09/19 12:00 Mechanical Ventilator 10/09/19 12:00 21 10/09/19 11:52 58 10/09/19 10:55 53 19 21 Intake and Output 10/09/19 10/10/19 19:00 07:00 Intake Total 895 ml 660 ml Output Total 150 ml 50 ml Balance 745 ml 610 ml Intake Free Water 200 ml 100 ml IV Total 55 ml 110 ml Tube Feeding 420 ml 350 ml Other 220 ml 100 ml Output Urine Total 150 ml 50 ml # Bowel Movements 4 3 Laboratory Tests 10/10/19 03:40: White Blood Count 10.0, Red Blood Count 2.30L, Hemoglobin 7.1L, Hematocrit 20.3L , Mean Corpuscular Volume 88, Mean Corpuscular Hemoglobin 31.0, Mean Corpuscular Hemoglobin Concent 35.0, Red Cell Distribution Width 14.7, Platelet Count 180, Mean Platelet Volume 5.2L, Neutrophils (%) (Auto) , Lymphocytes (%) ( Auto) , Monocytes (%) (Auto) , Eosinophils (%) (Auto) , Basophils (%) (Auto) , Neutrophils % (Manual) [Pending], Lymphocytes % (Manual) [Pending], Platelet Estimate [Pending], Platelet Morphology [Pending], Sodium Level 137, Potassium Level 3.2L, Chloride Level 100, Carbon Dioxide Level 24, Anion Gap 13, Blood Urea Nitrogen 104H, Creatinine 2.8H, Estimat Glomerular Filtration Rate 16.3, Glucose Level 155H, Calcium Level 8.4L, Phosphorus Level 2.1L, Magnesium Level 2.4, Total Bilirubin 0.4, Gamma Glutamyl Transpeptidase 59, Aspartate Amino Transf (AST/SGOT) 57H, Alanine Aminotransferase (ALT/SGPT) 51, Alkaline Phosphatase 285H, C-Reactive Protein, Quantitative 4.8H, Pro-B-Type Natriuretic Peptide > 44987D, Total Protein 6.2L, Albumin 1.9L, Globulin 4.3, Albumin/ Globulin Ratio 0.4L Height (Feet): 5 Height (Inches): 4.00 Weight (Pounds): 112 Objective General Appearance: WD/WN, awake. looks around. no distress. thin and frail Neck: supple +trach Cardiovascular: normal rate Respiratory/Chest: rhonchi - bilaterally Abdomen: normal bowel sounds, non tender, soft, no organomegaly Edema: no edema noted Arm (L), no edema noted Arm (R), no edema noted Leg (L), no edema noted Leg (R), no edema noted Pedal (L), no edema noted Pedal (R), no edema noted Generalized Neurologic: disoriented, aphasia Skin: +excoriations Nate Beltran MD Oct 10, 2019 10:05
--- NOTE | 2019-10-10 10:42 | Infectious Diseases Prog Note ---
"Assessment/Plan Assessment/Plan antibiotics : zosyn 4..20 - A 1. klebsiella | enterobacter | proteus pneumonia COVID 19 negative 2. right shoulder septic arthritis with staph aureus s/p rx 3. pleural effusion 4. thrombocytopenia resolved 7. diabetes mellitus 8. hypertension 9. respiratory failure 9. leucocytosis resolved P 1. continue zosyn 2 more days 2. will follow up cultures Subjective ROS Limited/Unobtainable: Yes Allergies: Coded Allergies: VANCOMYCIN (Unverified Allergy, Unknown, 08/02/19) Objective Vital Signs Last 24 Hour Vital Signs Date Time Temp Pulse Resp B/P (MAP) Pulse Ox O2 Delivery O2 Flow Rate FiO2 10/10/19 09:42 84 140/65 10/10/19 09:40 140/65 10/10/19 06:55 84 18 21 10/10/19 05:59 144/65 10/10/19 04:00 21 10/10/19 04:00 Mechanical Ventilator 10/10/19 04:00 98.1 67 16 156/75 (102) 100 10/10/19 03:34 65 10/10/19 03:07 66 18 21 10/10/19 01:13 67 18 21 10/10/19 00:00 21 10/10/19 00:00 69 10/10/19 00:00 98.2 73 18 144/65 (91) 99 10/09/19 23:53 Mechanical Ventilator 10/09/19 23:15 61 18 21 10/09/19 21:07 62 19 21 10/09/19 20:00 70 10/09/19 20:00 Mechanical Ventilator 10/09/19 20:00 97.9 70 18 137/61 (86) 98 10/09/19 20:00 21 10/09/19 19:12 59 19 21 10/09/19 18:25 98 146/65 10/09/19 18:24 146/65 10/09/19 16:02 Mechanical Ventilator 10/09/19 16:01 21 10/09/19 16:00 97.2 64 20 146/65 (92) 100 10/09/19 16:00 98 10/09/19 15:33 62 10/09/19 15:00 60 18 21 10/09/19 12:49 156/72 10/09/19 12:00 97.2 60 18 156/72 (100) 100 10/09/19 12:00 Mechanical Ventilator 10/09/19 12:00 21 10/09/19 11:52 58 10/09/19 10:55 53 19 21 Height (Feet): 5 Height (Inches): 4.00 Weight (Pounds): 112 HEENT: status post trach Respiratory/Chest: lungs clear Cardiovascular: normal rate, regular rhythm, no gallop/murmur Abdomen: soft, non tender, other - GT Extremities: no edema, other - right groin catheter Microbiology Date/Time Source Procedure Growth Status 10/08/19 04:40 Sputum Gram Stain - Final Resulted 10/08/19 04:40 Sputum Culture - Preliminary Klebsiella Pneumoniae Enterobacter Aerogenes Gram Negative Bacillus 3 Resulted Laboratory Tests Test 10/10/19 03:40 10/10/19 10:30 White Blood Count 10.0 K/UL (4.8-10.8) Pending Red Blood Count 2.30 M/UL (4.20-5.40) L Pending Hemoglobin 7.1 G/DL (12.0-16.0) L Pending Hematocrit 20.3 % (37.0-47.0) L Pending Mean Corpuscular Volume 88 FL (80-99) Pending Mean Corpuscular Hemoglobin 31.0 PG (27.0-31.0) Pending Mean Corpuscular Hemoglobin Concent 35.0 G/DL (32.0-36.0) Pending Red Cell Distribution Width 14.7 % (11.6-14.8) Pending Platelet Count 180 K/UL (150-450) Pending Mean Platelet Volume 5.2 FL (6.5-10.1) L Pending Neutrophils (%) (Auto) % (45.0-75.0) Pending Lymphocytes (%) (Auto) % (20.0-45.0) Pending Monocytes (%) (Auto) % (1.0-10.0) Pending Eosinophils (%) (Auto) % (0.0-3.0) Pending Basophils (%) (Auto) % (0.0-2.0) Pending Differential Total Cells Counted 100 Neutrophils % (Manual) 61 % (45-75) Lymphocytes % (Manual) 32 % (20-45) Monocytes % (Manual) 7 % (1-10) Eosinophils % (Manual) 0 % (0-3) Basophils % (Manual) 0 % (0-2) Band Neutrophils 0 % (0-8) Platelet Estimate Adequate Platelet Morphology Normal Hypochromasia 1+ Anisocytosis 1+ Sodium Level 137 MMOL/L (136-145) Potassium Level 3.2 MMOL/L (3.5-5.1) L Chloride Level 100 MMOL/L (98-107) Carbon Dioxide Level 24 MMOL/L (21-32) Anion Gap 13 mmol/L (5-15) Blood Urea Nitrogen 104 mg/dL (7-18) H Creatinine 2.8 MG/DL (0.55-1.30) H Estimat Glomerular Filtration Rate 16.3 mL/min (>60) Glucose Level 155 MG/DL (74-106) H Calcium Level 8.4 MG/DL (8.5-10.1) L Phosphorus Level 2.1 MG/DL (2.5-4.9) L Magnesium Level 2.4 MG/DL (1.8-2.4) Total Bilirubin 0.4 MG/DL (0.2-1.0) Gamma Glutamyl Transpeptidase 59 U/L (5-85) Aspartate Amino Transf (AST/SGOT) 57 U/L (15-37) H Alanine Aminotransferase (ALT/SGPT) 51 U/L (12-78) Alkaline Phosphatase 285 U/L (46-116) H C-Reactive Protein, Quantitative 4.8 mg/dL (0.00-0.90) H Pro-B-Type Natriuretic Peptide > 59797 pg/mL (0-125) H Total Protein 6.2 G/DL (6.4-8.2) L Albumin 1.9 G/DL (3.4-5.0) L Globulin 4.3 g/dL Albumin/Globulin Ratio 0.4 (1.0-2.7) L Current Medications Medications (Trade) Dose Ordered Sig/Javier Route PRN Reason Start Time Stop Time Status Last Admin Dose Admin Amlodipine Besylate (Norvasc) 5 mg BID GT 10/08/19 18:00 10/25/19 08:59 10/10/19 09:42 Azathioprine (Imuran) 50 mg DAILY ORAL 10/05/19 09:00 01/03/20 08:59 10/10/19 09:43 Chlorhexidine Gluconate (Nae-Hex 2%) 1 applic DAILY@2000 TOPIC 09/17/19 20:00 12/16/19 19:59 10/09/19 22:38 Dextrose (Dextrose 50%) 25 ml Q30M PRN IV Hypoglycemia 09/02/19 06:15 12/01/19 06:14 09/04/19 12:11 Dextrose (Dextrose 50%) 50 ml Q30M PRN IV Hypoglycemia 09/02/19 06:15 12/01/19 06:14 Doxazosin Mesylate (Cardura) 2 mg EVERY 12 HOURS GT 10/07/19 09:00 11/06/19 08:59 10/10/19 09:40 Epoetin Thomas (Epoetin Thomas-EPBX(NON ESRD)) 4,000 unit SUBQ 10/05/19 21:00 01/03/20 20:59 10/07/19 21:15 Hydralazine HCl (Apresoline) 10 mg Q4H PRN IV BP OVER 160 SYST 10/08/19 10:30 01/06/20 10:29 Hydralazine HCl (Apresoline) 100 mg Q8HR GT 10/10/19 06:00 01/08/20 05:59 10/10/19 05:59 Lansoprazole (Prevacid) 30 mg EVERY 12 HOURS GT 10/08/19 21:00 10/27/19 08:59 10/10/19 09:41 Levothyroxine Sodium (Synthroid) 125 mcg DAILY@0630 ORAL 09/22/19 06:30 10/22/19 06:29 10/10/19 05:59 Losartan Potassium (Cozaar) 100 mg DAILY GT 10/06/19 09:00 11/05/19 08:59 10/10/19 09:40 Piperacillin Sod/ Tazobactam Sod 2.25 gm/Dextrose 55 ml @ 110 mls/hr Q8HR IVPB 10/06/19 06:00 10/11/19 05:59 10/10/19 05:58 Prednisone (predniSONE) 25 mg DAILY ORAL 10/10/19 09:00 11/09/19 08:59 10/10/19 09:42 Psyllium Hydrophilic Mucilloid (Metamucil) 1 pkt DAILY ORAL 09/22/19 15:00 10/22/19 14:59 10/10/19 09:40 Sevelamer Carbonate (Renvela) 800 mg Q8HR NG 09/25/19 14:00 12/24/19 13:59 10/10/19 05:59 Melisas Solares MD Oct 10, 2019 10:42"
--- NOTE | 2019-10-10 10:42 | Critical Care Progress Note ---
Assessment/Plan Assessment/Plan respiratory failure hypoxemia chronic renal failure toxic met encephalopathy severe protein calorie malnutrition cachexia left lung whiteout/collapse, anemia pulmonary edema + pleural effusion s/p tap anasarca s/p CT placement and removal s/p trach hypernatremia leukocytosis ulcerative esophagitis PLAN trach care as is repeat CXR and monitor wbc reviewed care noted and reviewed monitor for fluid retention and effusions prognosis for recovery poor renal follow up and dialysis prognosis poor overall for change keep negative as able close follow up discussed elevated head and monitor ROM watch fluid status and keep negative nutrition and monitor residuals doubt any significant improvement off load as able and monitor skin exam ROM as able and monitor contractures prognosis poor for recovery difficult to optimize further impression, plan, and exam edited and reviewed in detail care discussed with supervisor partial denture department - Subjective Interval Events: care noted stable after tap no distress on vent ROS Limited/Unobtainable: Yes Condition: unchanged EKG Rhythm: Sinus Rhythm Residuals: minimal Tube Feeding Tolerated: yes I&O: Intake and Output 10/09/19 10/10/19 19:00 07:00 Intake Total 895 ml 660 ml Output Total 150 ml 50 ml Balance 745 ml 610 ml Intake Free Water 200 ml 100 ml IV Total 55 ml 110 ml Tube Feeding 420 ml 350 ml Other 220 ml 100 ml Output Urine Total 150 ml 50 ml # Bowel Movements 4 3 Critical Care - Objective ET-Tube: 7.0 ET Position: 19 Last 24 Hour Vital Signs Date Time Temp Pulse Resp B/P (MAP) Pulse Ox O2 Delivery O2 Flow Rate FiO2 10/10/19 09:42 84 140/65 10/10/19 09:40 140/65 10/10/19 06:55 84 18 21 10/10/19 05:59 144/65 10/10/19 04:00 21 10/10/19 04:00 Mechanical Ventilator 10/10/19 04:00 98.1 67 16 156/75 (102) 100 10/10/19 03:34 65 10/10/19 03:07 66 18 21 10/10/19 01:13 67 18 21 10/10/19 00:00 21 10/10/19 00:00 69 10/10/19 00:00 98.2 73 18 144/65 (91) 99 10/09/19 23:53 Mechanical Ventilator 10/09/19 23:15 61 18 21 10/09/19 21:07 62 19 21 10/09/19 20:00 70 10/09/19 20:00 Mechanical Ventilator 10/09/19 20:00 97.9 70 18 137/61 (86) 98 10/09/19 20:00 21 10/09/19 19:12 59 19 21 10/09/19 18:25 98 146/65 10/09/19 18:24 146/65 10/09/19 16:02 Mechanical Ventilator 10/09/19 16:01 21 10/09/19 16:00 97.2 64 20 146/65 (92) 100 10/09/19 16:00 98 10/09/19 15:33 62 10/09/19 15:00 60 18 21 10/09/19 12:49 156/72 10/09/19 12:00 97.2 60 18 156/72 (100) 100 10/09/19 12:00 Mechanical Ventilator 10/09/19 12:00 21 10/09/19 11:52 58 10/09/19 10:55 53 19 21 Labs: Laboratory Tests Test 10/10/19 03:40 10/10/19 10:30 White Blood Count 10.0 K/UL (4.8-10.8) Pending Red Blood Count 2.30 M/UL (4.20-5.40) L Pending Hemoglobin 7.1 G/DL (12.0-16.0) L Pending Hematocrit 20.3 % (37.0-47.0) L Pending Mean Corpuscular Volume 88 FL (80-99) Pending Mean Corpuscular Hemoglobin 31.0 PG (27.0-31.0) Pending Mean Corpuscular Hemoglobin Concent 35.0 G/DL (32.0-36.0) Pending Red Cell Distribution Width 14.7 % (11.6-14.8) Pending Platelet Count 180 K/UL (150-450) Pending Mean Platelet Volume 5.2 FL (6.5-10.1) L Pending Neutrophils (%) (Auto) % (45.0-75.0) Pending Lymphocytes (%) (Auto) % (20.0-45.0) Pending Monocytes (%) (Auto) % (1.0-10.0) Pending Eosinophils (%) (Auto) % (0.0-3.0) Pending Basophils (%) (Auto) % (0.0-2.0) Pending Differential Total Cells Counted 100 Neutrophils % (Manual) 61 % (45-75) Lymphocytes % (Manual) 32 % (20-45) Monocytes % (Manual) 7 % (1-10) Eosinophils % (Manual) 0 % (0-3) Basophils % (Manual) 0 % (0-2) Band Neutrophils 0 % (0-8) Platelet Estimate Adequate Platelet Morphology Normal Hypochromasia 1+ Anisocytosis 1+ Sodium Level 137 MMOL/L (136-145) Potassium Level 3.2 MMOL/L (3.5-5.1) L Chloride Level 100 MMOL/L (98-107) Carbon Dioxide Level 24 MMOL/L (21-32) Anion Gap 13 mmol/L (5-15) Blood Urea Nitrogen 104 mg/dL (7-18) H Creatinine 2.8 MG/DL (0.55-1.30) H Estimat Glomerular Filtration Rate 16.3 mL/min (>60) Glucose Level 155 MG/DL (74-106) H Calcium Level 8.4 MG/DL (8.5-10.1) L Phosphorus Level 2.1 MG/DL (2.5-4.9) L Magnesium Level 2.4 MG/DL (1.8-2.4) Total Bilirubin 0.4 MG/DL (0.2-1.0) Gamma Glutamyl Transpeptidase 59 U/L (5-85) Aspartate Amino Transf (AST/SGOT) 57 U/L (15-37) H Alanine Aminotransferase (ALT/SGPT) 51 U/L (12-78) Alkaline Phosphatase 285 U/L (46-116) H C-Reactive Protein, Quantitative 4.8 mg/dL (0.00-0.90) H Pro-B-Type Natriuretic Peptide > 22816 pg/mL (0-125) H Total Protein 6.2 G/DL (6.4-8.2) L Albumin 1.9 G/DL (3.4-5.0) L Globulin 4.3 g/dL Albumin/Globulin Ratio 0.4 (1.0-2.7) L Objective: WDWN NAD trach in place reduced breath sounds without rhonchi or wheeze [id number] without MRG NABS nontender no HSM no CCE contractures feeding tube in place no distention reduced LOC and weak nonfocal cachectic reviewed and edited Micro: Microbiology Date/Time Source Procedure Growth Status 10/08/19 04:40 Sputum Gram Stain - Final Resulted 10/08/19 04:40 Sputum Culture - Preliminary Klebsiella Pneumoniae Enterobacter Aerogenes Gram Negative Bacillus 3 Resulted Accucheck: 89 Malcolm Cruz MD Oct 10, 2019 10:42
[2019-10-10 10:43] LABS: HEMATOCRIT 21.5 % (37.0-47.0); HEMOGLOBIN 7.5 G/DL (12.0-16.0); MEAN CORPUSCULAR VOLUME 88 FL (80-99); PLATELET COUNT 161 K/UL (150-450); RED BLOOD COUNT 2.44 M/UL (4.20-5.40); RED CELL DISTRIBUTION WIDTH 14.5 % (11.6-14.8); WHITE BLOOD COUNT 13.6 K/UL (4.8-10.8)
[2019-10-10 12:00] VITALS: BP 124/68
--- NOTE | 2019-10-10 12:55 | Nephrology Progress Note ---
Assessment/Plan Problem List: (1) Liver enzyme elevation Assessment: Acute (2) ESRD (end stage renal disease) on dialysis (3) Malnutrition (4) Anemia in CKD (chronic kidney disease) (5) Hypotension (6) Thrombocytopenia (7) Sepsis Assessment: klebsiella in blood Assessment -Early sepsis with shock. -Healthcare-associated pneumonia. -Severe protein-calorie malnutrition. -Thrombocytopenia. - End-stage renal disease. - History of hypertension. - Bradycardia. - HypoThyroid Plan Transfuse for anemia Change Prevacid to Protonix IV Hold phosphate binders K-Phos 1 dose IV Check can panel in a.m. Monitor hemoglobin hematocrit on prednisone and Imuran Will adjust blood pressure medications Previously Had 2 sets of blood culture October 04, culture results are negative Chest x-ray suggests new infiltrate: Right perihilar infiltrate, new since prior study of 09/21/2019 Hemodialysis done October 07 Can DC femoral dialysis catheter Patient had a right upper chest tunneled catheter placed October 06 Previously patient white blood cell counts mario, unclear if it is due to steroids or an underlying infectious process Smooth muscle antibody positive, Ig G elevated Liver enzymes elevated but declining Tracheostomy September 07 Last dialysis September 26, next dialysis today October 02 Chest tube on the left side was put in on September 01 was discontinued September 07 Patient transfused 3 units of packed RBCs for low hemoglobin Remains full code Blood pressure fluctuating, will start hydralazine via NG tube for blood pressure Magnesium and potassium supplement intravenously as needed Patient underwent PEG placement August 16 patient remains intubated on ventilator Discussed with RN Aim to wean from ventilator or consider tracheostomy Permacath was removed on August 12 Dialysis 08/11 Transfusion as needed Patient had hematemesis meds IV as possible Surveillance blood cultures tomorrow Plan to put the permacath back in on Thursday if cultures are negative keep BP and BS in check Inflammatory markers per orders Subjective ROS Limited/Unobtainable: Yes Objective Objective Last 24 Hour Vital Signs Date Time Temp Pulse Resp B/P (MAP) Pulse Ox O2 Delivery O2 Flow Rate FiO2 10/10/19 10:35 68 18 21 10/10/19 09:42 84 140/65 10/10/19 09:40 140/65 10/10/19 08:00 Mechanical Ventilator 10/10/19 08:00 69 10/10/19 08:00 98.2 77 16 144/76 (98) 100 10/10/19 08:00 21 10/10/19 06:55 84 18 21 10/10/19 05:59 144/65 10/10/19 04:00 21 10/10/19 04:00 Mechanical Ventilator 10/10/19 04:00 98.1 67 16 156/75 (102) 100 10/10/19 03:34 65 10/10/19 03:07 66 18 21 10/10/19 01:13 67 18 21 10/10/19 00:00 21 10/10/19 00:00 69 10/10/19 00:00 98.2 73 18 144/65 (91) 99 10/09/19 23:53 Mechanical Ventilator 10/09/19 23:15 61 18 21 10/09/19 21:07 62 19 21 10/09/19 20:00 70 10/09/19 20:00 Mechanical Ventilator 10/09/19 20:00 97.9 70 18 137/61 (86) 98 10/09/19 20:00 21 10/09/19 19:12 59 19 21 10/09/19 18:25 98 146/65 10/09/19 18:24 146/65 10/09/19 16:02 Mechanical Ventilator 10/09/19 16:01 21 10/09/19 16:00 97.2 64 20 146/65 (92) 100 10/09/19 16:00 98 10/09/19 15:33 62 10/09/19 15:00 60 18 21 Intake and Output 10/09/19 10/10/19 19:00 07:00 Intake Total 895 ml 660 ml Output Total 150 ml 50 ml Balance 745 ml 610 ml Intake Free Water 200 ml 100 ml IV Total 55 ml 110 ml Tube Feeding 420 ml 350 ml Other 220 ml 100 ml Output Urine Total 150 ml 50 ml # Bowel Movements 4 3 Laboratory Tests 10/10/19 03:40: White Blood Count 10.0, Red Blood Count 2.30L, Hemoglobin 7.1L, Hematocrit 20.3L , Mean Corpuscular Volume 88, Mean Corpuscular Hemoglobin 31.0, Mean Corpuscular Hemoglobin Concent 35.0, Red Cell Distribution Width 14.7, Platelet Count 180, Mean Platelet Volume 5.2L, Neutrophils (%) (Auto) , Lymphocytes (%) ( Auto) , Monocytes (%) (Auto) , Eosinophils (%) (Auto) , Basophils (%) (Auto) , Differential Total Cells Counted 100, Neutrophils % (Manual) 61, Lymphocytes % ( Manual) 32, Monocytes % (Manual) 7, Eosinophils % (Manual) 0, Basophils % ( Manual) 0, Band Neutrophils 0, Platelet Estimate Adequate, Platelet Morphology Normal, Hypochromasia 1+, Anisocytosis 1+, Sodium Level 137, Potassium Level 3.2L, Chloride Level 100, Carbon Dioxide Level 24, Anion Gap 13, Blood Urea Nitrogen 104H, Creatinine 2.8H, Estimat Glomerular Filtration Rate 16.3, Glucose Level 155H, Calcium Level 8.4L, Phosphorus Level 2.1L, Magnesium Level 2.4, Total Bilirubin 0.4, Gamma Glutamyl Transpeptidase 59, Aspartate Amino Transf (AST/SGOT) 57H, Alanine Aminotransferase (ALT/SGPT) 51, Alkaline Phosphatase 285H, C-Reactive Protein, Quantitative 4.8H, Pro-B-Type Natriuretic Peptide > 24436K, Total Protein 6.2L, Albumin 1.9L, Globulin 4.3, Albumin/ Globulin Ratio 0.4L 10/10/19 10:30: White Blood Count 13.6H, Red Blood Count 2.44L, Hemoglobin 7.5L, Hematocrit 21.5L, Mean Corpuscular Volume 88, Mean Corpuscular Hemoglobin 30.9, Mean Corpuscular Hemoglobin Concent 35.0, Red Cell Distribution Width 14.5, Platelet Count 161, Mean Platelet Volume 5.0L, Neutrophils (%) (Auto) , Lymphocytes (%) ( Auto) , Monocytes (%) (Auto) , Eosinophils (%) (Auto) , Basophils (%) (Auto) , Differential Total Cells Counted 100, Neutrophils % (Manual) 60, Lymphocytes % ( Manual) 34, Monocytes % (Manual) 6, Eosinophils % (Manual) 0, Basophils % ( Manual) 0, Band Neutrophils 0, Platelet Estimate Adequate, Platelet Morphology Normal, Hypochromasia 1+, Anisocytosis 1+ Height (Feet): 5 Height (Inches): 4.00 Weight (Pounds): 112 General Appearance: no apparent distress, lethargic EENT: other - Trached and vent Cardiovascular: normal rate Respiratory/Chest: decreased breath sounds Abdomen: other - PEG Objective no change William Blackwood MD Oct 10, 2019 12:55
--- NOTE | 2019-10-10 13:14 | Surgery Progress Note ---
Surgery Progress Note Subjective Procedure Performed 1. tracheostomy 2 removal of left tube thoracostomy Additional Comments leukocytosis LFT's improving sutures removed at bedside CXR ordered Objective Last 24 Hour Vital Signs Date Time Temp Pulse Resp B/P (MAP) Pulse Ox O2 Delivery O2 Flow Rate FiO2 10/10/19 10:35 68 18 21 10/10/19 09:42 84 140/65 10/10/19 09:40 140/65 10/10/19 08:00 Mechanical Ventilator 10/10/19 08:00 69 10/10/19 08:00 98.2 77 16 144/76 (98) 100 10/10/19 08:00 21 10/10/19 06:55 84 18 21 10/10/19 05:59 144/65 10/10/19 04:00 21 10/10/19 04:00 Mechanical Ventilator 10/10/19 04:00 98.1 67 16 156/75 (102) 100 10/10/19 03:34 65 10/10/19 03:07 66 18 21 10/10/19 01:13 67 18 21 10/10/19 00:00 21 10/10/19 00:00 69 10/10/19 00:00 98.2 73 18 144/65 (91) 99 10/09/19 23:53 Mechanical Ventilator 10/09/19 23:15 61 18 21 10/09/19 21:07 62 19 21 10/09/19 20:00 70 10/09/19 20:00 Mechanical Ventilator 10/09/19 20:00 97.9 70 18 137/61 (86) 98 10/09/19 20:00 21 10/09/19 19:12 59 19 21 10/09/19 18:25 98 146/65 10/09/19 18:24 146/65 10/09/19 16:02 Mechanical Ventilator 10/09/19 16:01 21 10/09/19 16:00 97.2 64 20 146/65 (92) 100 10/09/19 16:00 98 10/09/19 15:33 62 10/09/19 15:00 60 18 21 I&O Intake and Output 10/09/19 10/10/19 19:00 07:00 Intake Total 895 ml 660 ml Output Total 150 ml 50 ml Balance 745 ml 610 ml Intake Free Water 200 ml 100 ml IV Total 55 ml 110 ml Tube Feeding 420 ml 350 ml Other 220 ml 100 ml Output Urine Total 150 ml 50 ml # Bowel Movements 4 3 Dressing: dry Cardiovascular: RSR Respiratory: clear, decreased breath sounds Abdomen: soft, non-tender, present bowel sounds Extremities: no tenderness, no cyanosis Laboratory Tests Test 10/10/19 03:40 10/10/19 10:30 White Blood Count 10.0 K/UL (4.8-10.8) 13.6 K/UL (4.8-10.8) H Red Blood Count 2.30 M/UL (4.20-5.40) L 2.44 M/UL (4.20-5.40) L Hemoglobin 7.1 G/DL (12.0-16.0) L 7.5 G/DL (12.0-16.0) L Hematocrit 20.3 % (37.0-47.0) L 21.5 % (37.0-47.0) L Mean Corpuscular Volume 88 FL (80-99) 88 FL (80-99) Mean Corpuscular Hemoglobin 31.0 PG (27.0-31.0) 30.9 PG (27.0-31.0) Mean Corpuscular Hemoglobin Concent 35.0 G/DL (32.0-36.0) 35.0 G/DL (32.0-36.0) Red Cell Distribution Width 14.7 % (11.6-14.8) 14.5 % (11.6-14.8) Platelet Count 180 K/UL (150-450) 161 K/UL (150-450) Mean Platelet Volume 5.2 FL (6.5-10.1) L 5.0 FL (6.5-10.1) L Neutrophils (%) (Auto) % (45.0-75.0) % (45.0-75.0) Lymphocytes (%) (Auto) % (20.0-45.0) % (20.0-45.0) Monocytes (%) (Auto) % (1.0-10.0) % (1.0-10.0) Eosinophils (%) (Auto) % (0.0-3.0) % (0.0-3.0) Basophils (%) (Auto) % (0.0-2.0) % (0.0-2.0) Differential Total Cells Counted 100 100 Neutrophils % (Manual) 61 % (45-75) 60 % (45-75) Lymphocytes % (Manual) 32 % (20-45) 34 % (20-45) Monocytes % (Manual) 7 % (1-10) 6 % (1-10) Eosinophils % (Manual) 0 % (0-3) 0 % (0-3) Basophils % (Manual) 0 % (0-2) 0 % (0-2) Band Neutrophils 0 % (0-8) 0 % (0-8) Platelet Estimate Adequate Adequate Platelet Morphology Normal Normal Hypochromasia 1+ 1+ Anisocytosis 1+ 1+ Sodium Level 137 MMOL/L (136-145) Potassium Level 3.2 MMOL/L (3.5-5.1) L Chloride Level 100 MMOL/L (98-107) Carbon Dioxide Level 24 MMOL/L (21-32) Anion Gap 13 mmol/L (5-15) Blood Urea Nitrogen 104 mg/dL (7-18) H Creatinine 2.8 MG/DL (0.55-1.30) H Estimat Glomerular Filtration Rate 16.3 mL/min (>60) Glucose Level 155 MG/DL (74-106) H Calcium Level 8.4 MG/DL (8.5-10.1) L Phosphorus Level 2.1 MG/DL (2.5-4.9) L Magnesium Level 2.4 MG/DL (1.8-2.4) Total Bilirubin 0.4 MG/DL (0.2-1.0) Gamma Glutamyl Transpeptidase 59 U/L (5-85) Aspartate Amino Transf (AST/SGOT) 57 U/L (15-37) H Alanine Aminotransferase (ALT/SGPT) 51 U/L (12-78) Alkaline Phosphatase 285 U/L (46-116) H C-Reactive Protein, Quantitative 4.8 mg/dL (0.00-0.90) H Pro-B-Type Natriuretic Peptide > 49111 pg/mL (0-125) H Total Protein 6.2 G/DL (6.4-8.2) L Albumin 1.9 G/DL (3.4-5.0) L Globulin 4.3 g/dL Albumin/Globulin Ratio 0.4 (1.0-2.7) L Assessment Post-op Diagnosis same Plan Problems: (1) Malnutrition Assessment & Plan: DAILY ESTIMATED NEEDS: Needs based on ESRD+ HD, underweight, wound/ 39.5kg 35-40 kcals/kg 1272-7211 total kcals 1.25-1.8 g protein/kg 49-71 g total protein 20-22 mL/kg 790-869 total fluid mLs NUTRITION DIAGNOSIS: * Increased kcal and protein needs r/t underweight status, HD needs, wuond healing as evidenced by pt is underweight per guidelines, ESRD, on HD, admitted non-blanching erythema wounds @ BL heels and sacrum * Swallowing difficulty R/T dysphagia as evidenced by CONTRACT TECHNICIAN recommends temporary nonoral feeding at this time, s/p NGT insertion, on NGT feeding-> now s/p self removal, NPO. CURRENT TF:NPO PO DIET RECOMMENDATIONS: WHEN SAFE FOR ORAL DIET -> renal/ texture per CONTRACT TECHNICIAN ENTERAL NUTRITION RECOMMENDATIONS: W/ GI access: Nepro @ 35ml/hr x 22 hrs to provide 770ml, 1386kcal, 62g prot, 560ml free water * W/ GI access, resume TF on Nepro * Initiate Nepro @ 15ml/hr x 6 hrs, advance 10ml q 4-6 hrs as tolerated to goal rate. * Hold 1 hour before and after Synthroid med * HOB over 30 degrees/ water flush per MD. ADDITIONAL RECOMMENDATIONS: 1) Calibrated bed scale wt for accurate CBW -> daily wt monitoring Per HD record: dry wt on 07/30=39.5kg (87lbs) 2) Wound care: (W/ GI access) add Nephorivte x 1 + Balta BID 3) Monitor NPO status: without GI access at this time, s/p pulling out NGT 4) Monitor for hypoglycemia while NPO 5) Monitor for continuity of HD (2) Septic arthritis Assessment & Plan: Pt presented on admission with generalized scaly rash . pt noted to be restless and scratching at skin. Bleeding from oral mucosa noted. Joint deformity noted to R shoulder. Surgical incision approximated with 11 sutures. Erythema but no exudate,or elevation in skin temp at site of incision. Historical incision R hip that is tunneled.Small amt seropurulent exudate noted. Periwound is erythematous,but no elevation in skin temp noted. No odor noted. Non-blanching erythema noted to sacrum. Perianal area is erythematous and excoriated. L heel is boggy with non-blanching erythema. R heel is soft with non-blanching erythema. No evidence of skin breakdown to all other bony prominences. Tx.plan: Cover R shoulder with Drsg and change daily and prn. Cleanse R hip wound with Saline. Apply Therahoney.Apply Cavilon Skin Barrier periwound. Cover with Optifoam drsg. Change every 3 days and prn. Apply Moisture Barrier Paste to perianal area and buttocks. Cover Sacrum with Optifoam drsg. Change every 3 days and prn. Apply Cavilon Skin Barrier to both heels. Cover each heel with Optifoam drsg. Change every 7 days and prn. APM/ELVIA Mattress overlay. Reposition at least every 2hours or as tolerated. Off-load heels with pillow. HD cath necessary HD as renal likely will need intubation s/p trach 19 x 11 x 11 mm hypoechoic area in the liver adjacent to the gallbladder fossa. Although location is typical for area of focal sparing in a fatty liver, there are no findings to indicate fatty liver and this is a new finding since fairly recent previous exam. Therefore the possibility of a process such as small abscess should be considered. Atrophic echogenic kidneys Negative for gallstones or dilated bile ducts sutures removed left chest wall (3) Wound, open, hip or thigh with complication Assessment & Plan: slow healing will need nutritional optimization difficult ng tube peg when stable sutures removed from right shoulder comfortable wean vent may need trach (4) Abscess of right hip (5) possible septic arthritis (6) Renal failure (ARF), acute on chronic Assessment & Plan: cont HD will need tunneled cath placement okay to use fem line for now but will need change soon. line monitored and clean dressings going well tunneled cath okay (7) Pneumonia Assessment & Plan: on vent support not tolerating weaning may need trach - s/p hemothorax likely after thoracentesis Chest CT noted Left chest tube placed With plan for trach chest tube can be considered but overall prognosis is very poor s/p trach left chest tub eout cxr noted and okay downgrade left pleural effusion dressings saturated will need to monitor. may need another chest tube as may not heal well on left side Anasarca, with as mentioned above diffuse edema of the soft tissues, trace ascites, and bilateral pleural effusions No hepatic abnormality to correlate with suspected small pericholecystic lesion in the liver described on recent sonogram. The lesion may be occult on noncontrast CT, may have been artifactual or may have resolved in the interim. Consider repeat sonography in a few days to assess progression No definite acute abdominal process otherwise Improved but still sizable left pleural effusion with minimal residual hemoperitoneum since prior CT scan of 09/01/2019. There is near complete atelectasis of the left lower lobe. There is a small right pleural effusion with atelectatic changes of the right lower lobe and right perihilar dense consolidation. These appear improved since a prior CT of 09/01/2019 Increased crazy paving type opacity within the right middle lobe since previous August [address], may reflect an area of increasing infiltrate, versus focal edema. There is also some dense consolidation of the perihilar right lower lobe which is improved since the previous August 31 CT Right groin temporary dialysis catheter in good position Atrophic kidneys, consistent with known history of chronic renal disease L2 compression fracture deformity, and advanced degenerative changes of the L2- L3 disc. Similar to prior study Marroquin catheter hold on repeat chest tube (8) Liver enzyme elevation Assessment & Plan: likely shock liver improving trend trending down will monitor Camilo James Oct 10, 2019 13:14
[2019-10-10] MEDS ORDERED: Potassium Phosphate 15mm/250ml 250 ML IVPB ONE (14:00)
[2019-10-10] MEDS: HydrALAZINE 50mg tab GT SCH ×2 (14:03→22:46)
[2019-10-10] MEDS: Pantoprazole Inj IVP SCH ×2 (14:04→22:47)
[2019-10-10 16:00] VITALS: BP 154/76
[2019-10-10 20:00] VITALS: BP 140/60
[2019-10-10] MEDS: Dyna-Hex 2% Top Sol 2oz TOPIC SCH (22:45)
[2019-10-10] MEDS: Epoetin Alfa-EPBX (NON ESRD)4000 units/ml vial SUBQ SCH (22:51)
[2019-10-11] VITALS: BP 112/61
--- NOTE | 2019-10-11 00:44 | Progress Note ---
DATE: 10/10/2019 CARDIOLOGY PROGRESS NOTE SUBJECTIVE: No new events, remains on ventilator support. Continues on steroids and Imuran. Monitored sinus rhythm with rare atrial ectopics. No significant bradycardias. PHYSICAL EXAMINATION: VITAL SIGNS: Blood pressure 137/61 to 156/75, heart rate 67, respiratory rate 16, afebrile. LUNGS: Good breath sounds and thin secretions. Trach site, no bleeding. CARDIAC: Regular rhythm and rate. Normal S1, S2 with no new murmur. ABDOMEN: Soft with G-tube. EXTREMITIES: No edema. LABORATORY AND DIAGNOSTIC DATA: White count 13.6, hemoglobin 7.5. Potassium 3.2, BUN 104, creatinine 2.8, phosphorus 2.1. Pro-natriuretic peptide over 35,000. Albumin 1.9. Liver function studies are near normal. IMPRESSION: 1. 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 2. Hypertensive heart disease with labile blood pressure. 3. Acute on chronic diastolic congestive heart failure. 4. End-stage renal disease. 5. Severe protein-calorie malnutrition. 6. Hypophosphatemia. 7. Hypokalemia. 8. Respiratory failure with trach. 9. Hypothyroidism on replacement therapy IV thyroid. 10. Paroxysmal sinus bradycardia, resolved 11. Anemia of chronic kidney disease. 12. Healthcare-associated pneumonia. PLAN OF CARE: 1. Continue current cardiovascular regimen. 2. Replace phosphate. 3. Antimicrobials per Infectious Diseases child development consultant. 4. Recheck laboratory studies. 5. Packed red blood cell transfusion. 6. Continue Epogen. Abel Stubbs M.D. DR: Lety JOB#: [id number] CC:
[2019-10-11] MEDS: Piperacillin/Tazobactam 2.25 GM in D5W 55 ML IVPB SCH ×3 (01:42→17:01)
[2019-10-11 04:00] VITALS: BP 126/67
[2019-10-11] MEDS: Levothyroxine 125mcg tab ORAL SCH (05:42)
[2019-10-11] MEDS: HydrALAZINE 50mg tab GT SCH ×3 (05:44→22:32)
--- NOTE | 2019-10-11 06:10 | Hematology/Onc Progress Note ---
Assessment/Plan Assessment/Plan # Thrombocytopenia now THROMBOCYTOSIS - potential causes multifactorial, evaluate liver and viral etiologies to begin, in this case due to sepsis with septic shock also with cirrhosis and liver disease --> Hep panel and HIV ordered --> neg --> US abd to evaluate for cirrhosis and hsm ordered --> reviewed --> Peripheral smear ordered to evaluate for blasts /schistocytes --> none noted --> abx and other meds have been reviewed --> ok for ppx if plt >50k w/ either heparin or lovenox --> Transfuse if Plt < 20k and fever, or if Plt < 10k without fever --> okay for permacath change once plt better--> for 08/14 --> plt trend: 43-->83-->237k-->292-->341-->315-->388 -->444-->530-->252k-->344- >529->525k-->273 # Anemia of chronic disease due to underlying chronic medical issues, multifactorial v Gi bleed --> Anemia workup has been ordered, rule out gi bleed --> No evidence of hemolysis is noted, peripheral smear has been reviewed. --> Hgb goal >7. Transfuse prn. --> Epogen has been started --> HOLD OFF IRON ferritin is >1000 --> Medications have been reviewed --> low threshold for gi evaluation in case has occult + --> hgb 9-->6.7-->9.2 -->10.5-->10.6 -->10.7-->10-->10.5-->9.8-->10.4-->9.5--> 3.6-->9.6-->9.7-->10-->10.3-->11->9.9->8.3->8.7-->8.1-->8.9-->7.4->9.2-->7.1 --> blood tx: 08/11, 08/31, 10/03 --> CT Chest r/o hemothorax --> does show confirmation of a large left hemothorax. Complete atelectasis of the left lower lobe and partial left upper lobe atelectasis demonstrated. Mild rightward shift of the heart and mediastinum. --> stool ob negative # Leukocytosis with Sepsis with shock. --> abx as per id, recs noted--> off abx --> pressors as needed --> IS now on steriods --> wbc 15-->8-->13 # Healthcare-associated pneumonia. --> recs reviewed --> abx: jung/micafungin-->jung-->off --> 08/24 chest: moderate left pleural effusion # Severe protein-calorie malnutrition. --> nutritional support # End-stage renal disease --> had as renal hd --> with permacath # History of hypertension. --> per cards, now with Bradycardia. # Resp failure s/p vent/trach # HypoThyroid # Ngt feedings # Dvt ppx scd's The timing of this note does not necessarily reflect the time of the patient was seen. Greatly appreciate consultation. Subjective Constitutional: Denies: no symptoms, chills, fever, malaise, weakness, other HEENT: Denies: no symptoms, eye pain, blurred vision, tearing, double vision, ear pain, ear discharge, nose pain, nose congestion, throat pain, throat swelling, mouth pain, mouth swelling, other Respiratory: Denies: no symptoms, cough, shortness of breath, SOB with excertion, SOB at rest, sputum, wheezing, other Gastrointestinal/Abdominal: Denies: no symptoms, abdomen distended, abdominal pain, black stools, tarry stools, blood in stool, constipated, diarrhea, difficulty swallowing, nausea, poor appetite, poor fluid intake, rectal bleeding , vomiting, other Genitourinary: Denies: no symptoms, burning, discharge, frequency, flank pain, hematuria, incontinence, pain, urgency, other Neurologic/Psychiatric: Denies: no symptoms, anxiety, depressed, emotional problems, headache, numbness, paresthesia, pre-existing deficit, seizure, tingling, tremors, weakness, other Endocrine: Denies: no symptoms, excessive sweating, flushing, intolerance to cold, intolerance to heat, increased hunger, increased thirst, increased urine, unexplained weight gain, unexplained weight loss, other Hematologic/Lymphatic: Denies: no symptoms, anemia, easy bleeding, easy bruising, adenopathy, other Allergies: Coded Allergies: VANCOMYCIN (Unverified Allergy, Unknown, 08/02/19) Subjective 08/11: no bleeding or chills, labs reviewed, no major bleeding, plt less than 50k 08/12: icu, s/p blood, hgb improved to 9.2, 08/14: icu, pending consent for thora and permacath, labs reviewed 08/15: new permacath placed, no bleeding, for hd, plt much improved, started lovenox sq 08/16: ett to be adjusted, bp on high end, micafungin started, possible bronch 08/17: weaning as per pulm, no events otherwise, labs noted 08/18: no events no bleeding, remains confused on vent, for hd 08/20: icu, failed to wean, labs reviewed, jung 08/21: resting in bed, no overnight events, labs reviewed 08/22: awake, confused, restraints, no overnight events 08/23: no events, no bleeding, on ppi bid 08/24: icu, failed to wean, labs reviewed 08/25: no overnight events, us chest, restraints, afebrile 08/26 difficult in weaning, nad, seen by surg, pulm labs noted 08/27 awake on restraints, thoracentesis for am, labs reviewed 08/29 no bleeding, no night sweats, no major changes, on ppi bid 08/30 no major events, remains on vent, no bleeding, dw pcp 08/31 hgb dropped to 3.6, has been transfused with prbc, in icu, david Rn, ct chest pend 09/01 no major events, no bleeding, labs noted, hgb remains low, hgb 9.6 09/03 lethargic, left chest tube dry/intact, off abx, vent 09/04 remains on a vent, synthroid, labs reviewed 09/05 awake and alert, no acute events, hgb 9.8, no new orders 09/06 no bleeding or chills, labs noted, no major events overnight, david rn 09/07 no events, no night sweats, no bleeding, no fc, remains agitated in the am 09/08 remains in the icu, trach was done, on vent, abx off, on epo 09/10 transferred to sdu, restraints, vent, labs reviewed 09/11 tube feeds have been ongoing, no f/c, labs reviewed 09/12 no events, no bleeding, no night sweats, hgb 10 09/13 tsh is improved, remains confused, hgb is 11, no bleeding 09/14 no events, no bleeding, labs noted, vitals stable 09/15 confused, no acute events, restraints, dc planning 09/17 no new changes, no recent labs, placement pending 09/18 no events, no bleeding, no night sweats, fevers 09/19 nonverbal, vent, elevated bp, off abx 09/20 labs reviewed, dw rn, no bleeding, meds reviewed 09/21 is a+o x 1, nonverbal, no bleeding, labs reviewed, no night sweats 09/22 no major events, no bleeding, no night sweats, no f/c, labs noted hgb 10.5 09/25 no events, no bleeding, labs noted, cbc reviewed 09/26 no events, with gtube feeds ongoing and with event, labs noted 09/27 labs have been reviewed, no night sweats, no fc 09/28 labs reviewed, no night sweats, hgb lower, but holding off on transfusion 09/29 alert, stool ob negative, h/h stable, dc planning 10/01 sdu, tsh improved, labs reviewed, elevated bp 10/02 no major events, no bleeding, labs reviewed, hgb 8, nv 10/03 no changes, labs reviewed, cbc noted, no bleeding, hgb 6.7, to get 1 unit prbc 10/04 labs noted, no bleeding epogen has been started, hgb 7.4, on epo 10/05 labs have been reviewed, no bleeding, hg low, no bleeding, confused 10/06 remains confused, slovenian speaking, with right abigail intact 10/08 on vent, with right permacath, and right abigail, labs noted 10/09 labs are noted, tfs are infusing, meds reviewed, no bleeding, hgb 7.1 10/10 is not in acute distress, epo has been given, no bleeding Objective Objective Current Medications Medications (Trade) Dose Ordered Sig/Javier Route PRN Reason Start Time Stop Time Status Last Admin Dose Admin Amlodipine Besylate (Norvasc) 5 mg BID GT 10/08/19 18:00 10/25/19 08:59 10/10/19 17:32 Azathioprine (Imuran) 50 mg DAILY ORAL 10/05/19 09:00 01/03/20 08:59 10/10/19 09:43 Chlorhexidine Gluconate (Nae-Hex 2%) 1 applic DAILY@2000 TOPIC 09/17/19 20:00 12/16/19 19:59 10/10/19 22:45 Dextrose (Dextrose 50%) 25 ml Q30M PRN IV Hypoglycemia 09/02/19 06:15 12/01/19 06:14 09/04/19 12:11 Dextrose (Dextrose 50%) 50 ml Q30M PRN IV Hypoglycemia 09/02/19 06:15 12/01/19 06:14 Doxazosin Mesylate (Cardura) 2 mg EVERY 12 HOURS GT 10/07/19 09:00 11/06/19 08:59 10/10/19 22:47 Epoetin Thomas (Epoetin Thomas-EPBX(NON ESRD)) 4,000 unit SUBQ 10/05/19 21:00 01/03/20 20:59 10/10/19 22:51 Hydralazine HCl (Apresoline) 10 mg Q4H PRN IV BP OVER 160 SYST 10/08/19 10:30 01/06/20 10:29 Hydralazine HCl (Apresoline) 100 mg Q8HR GT 10/10/19 14:00 01/08/20 05:59 10/11/19 05:44 Levothyroxine Sodium (Synthroid) 125 mcg DAILY@0630 ORAL 09/22/19 06:30 10/22/19 06:29 10/11/19 05:42 Losartan Potassium (Cozaar) 100 mg DAILY GT 10/06/19 09:00 11/05/19 08:59 10/10/19 09:40 Pantoprazole (Protonix) 40 mg EVERY 12 HOURS IVP 10/10/19 13:00 11/09/19 12:59 10/10/19 22:47 Piperacillin Sod/ Tazobactam Sod 2.25 gm/Dextrose 55 ml @ 110 mls/hr Q8H IVPB 10/10/19 17:00 10/17/19 16:59 10/11/19 01:42 Prednisone (predniSONE) 25 mg DAILY ORAL 10/10/19 09:00 11/09/19 08:59 10/10/19 09:42 Psyllium Hydrophilic Mucilloid (Metamucil) 1 pkt DAILY ORAL 09/22/19 15:00 10/22/19 14:59 10/10/19 09:40 Last 24 Hour Vital Signs Date Time Temp Pulse Resp B/P (MAP) Pulse Ox O2 Delivery O2 Flow Rate FiO2 10/11/19 05:44 126/71 10/11/19 05:09 74 18 21 10/11/19 04:10 Mechanical Ventilator 10/11/19 04:10 21 10/11/19 03:31 80 18 21 10/11/19 01:26 79 18 21 10/11/19 00:07 59 10/11/19 00:07 21 10/11/19 00:00 97.1 76 18 112/61 (78) 100 10/11/19 00:00 Mechanical Ventilator 10/10/19 23:41 72 18 21 10/10/19 22:46 140/60 10/10/19 21:14 64 18 21 10/10/19 20:00 97.4 59 18 140/60 (86) 94 10/10/19 20:00 59 10/10/19 19:56 21 10/10/19 19:55 Mechanical Ventilator 10/10/19 19:39 67 20 21 10/10/19 19:06 55 10/10/19 17:32 62 154/74 10/10/19 16:00 21 10/10/19 16:00 97.1 66 16 154/76 (102) 100 10/10/19 16:00 Mechanical Ventilator 10/10/19 16:00 60 10/10/19 15:00 67 21 21 10/10/19 14:03 124/65 10/10/19 12:00 65 10/10/19 12:00 97.0 68 16 124/68 (86) 100 10/10/19 12:00 Mechanical Ventilator 10/10/19 12:00 21 10/10/19 12:00 97.0 68 16 124/68 (86) 100 10/10/19 10:35 68 18 21 10/10/19 09:42 84 140/65 10/10/19 09:40 140/65 10/10/19 08:00 Mechanical Ventilator 10/10/19 08:00 69 10/10/19 08:00 98.2 77 16 144/76 (98) 100 10/10/19 08:00 21 10/10/19 06:55 84 18 21 10/10/19 05:59 144/65 10/10/19 04:00 21 10/10/19 04:00 Mechanical Ventilator 10/10/19 04:00 98.1 67 16 156/75 (102) 100 10/10/19 03:34 65 10/10/19 03:07 66 18 21 10/10/19 01:13 67 18 21 10/10/19 00:00 21 10/10/19 00:00 69 10/10/19 00:00 98.2 73 18 144/65 (91) 99 10/09/19 23:53 Mechanical Ventilator 10/09/19 23:15 61 18 21 10/09/19 21:07 62 19 21 10/09/19 20:00 70 10/09/19 20:00 Mechanical Ventilator 10/09/19 20:00 97.9 70 18 137/61 (86) 98 10/09/19 20:00 21 10/09/19 19:12 59 19 21 10/09/19 18:25 98 146/65 10/09/19 18:24 146/65 10/09/19 16:02 Mechanical Ventilator 10/09/19 16:01 21 10/09/19 16:00 97.2 64 20 146/65 (92) 100 10/09/19 16:00 98 10/09/19 15:33 62 10/09/19 15:00 60 18 21 10/09/19 12:49 156/72 10/09/19 12:00 97.2 60 18 156/72 (100) 100 10/09/19 12:00 Mechanical Ventilator 10/09/19 12:00 21 10/09/19 11:52 58 10/09/19 10:55 53 19 21 10/09/19 08:45 60 181/79 10/09/19 08:44 60 181/79 10/09/19 08:44 181/79 10/09/19 08:00 Mechanical Ventilator 10/09/19 08:00 96.4 60 18 181/79 (113) 100 10/09/19 08:00 21 10/09/19 07:59 62 10/09/19 07:00 60 19 21 10/09/19 06:47 172/77 Intake and Output 10/10/19 10/11/19 19:00 07:00 Intake Total 992.5 ml 702.5 ml Output Total 250 ml 200 ml Balance 742.5 ml 502.5 ml Intake Free Water 150 ml IV Total 172.5 ml 117.5 ml Tube Feeding 420 ml 385 ml Blood Product 250 ml Other 200 ml Output Urine Total 250 ml 200 ml # Bowel Movements 3 3 Labs Test 10/10/19 03:40 10/10/19 10:30 White Blood Count 10.0 K/UL (4.8-10.8) 13.6 K/UL (4.8-10.8) Red Blood Count 2.30 M/UL (4.20-5.40) 2.44 M/UL (4.20-5.40) Hemoglobin 7.1 G/DL (12.0-16.0) 7.5 G/DL (12.0-16.0) Hematocrit 20.3 % (37.0-47.0) 21.5 % (37.0-47.0) Mean Corpuscular Volume 88 FL (80-99) 88 FL (80-99) Mean Corpuscular Hemoglobin 31.0 PG (27.0-31.0) 30.9 PG (27.0-31.0) Mean Corpuscular Hemoglobin Concent 35.0 G/DL (32.0-36.0) 35.0 G/DL (32.0-36.0) Red Cell Distribution Width 14.7 % (11.6-14.8) 14.5 % (11.6-14.8) Platelet Count 180 K/UL (150-450) 161 K/UL (150-450) Mean Platelet Volume 5.2 FL (6.5-10.1) 5.0 FL (6.5-10.1) Neutrophils (%) (Auto) % (45.0-75.0) % (45.0-75.0) Lymphocytes (%) (Auto) % (20.0-45.0) % (20.0-45.0) Monocytes (%) (Auto) % (1.0-10.0) % (1.0-10.0) Eosinophils (%) (Auto) % (0.0-3.0) % (0.0-3.0) Basophils (%) (Auto) % (0.0-2.0) % (0.0-2.0) Differential Total Cells Counted 100 100 Neutrophils % (Manual) 61 % (45-75) 60 % (45-75) Lymphocytes % (Manual) 32 % (20-45) 34 % (20-45) Monocytes % (Manual) 7 % (1-10) 6 % (1-10) Eosinophils % (Manual) 0 % (0-3) 0 % (0-3) Basophils % (Manual) 0 % (0-2) 0 % (0-2) Band Neutrophils 0 % (0-8) 0 % (0-8) Platelet Estimate Adequate Adequate Platelet Morphology Normal Normal Hypochromasia 1+ 1+ Anisocytosis 1+ 1+ Sodium Level 137 MMOL/L (136-145) Potassium Level 3.2 MMOL/L (3.5-5.1) Chloride Level 100 MMOL/L (98-107) Carbon Dioxide Level 24 MMOL/L (21-32) Anion Gap 13 mmol/L (5-15) Blood Urea Nitrogen 104 mg/dL (7-18) Creatinine 2.8 MG/DL (0.55-1.30) Estimat Glomerular Filtration Rate 16.3 mL/min (>60) Glucose Level 155 MG/DL (74-106) Calcium Level 8.4 MG/DL (8.5-10.1) Phosphorus Level 2.1 MG/DL (2.5-4.9) Magnesium Level 2.4 MG/DL (1.8-2.4) Total Bilirubin 0.4 MG/DL (0.2-1.0) Gamma Glutamyl Transpeptidase 59 U/L (5-85) Aspartate Amino Transf (AST/SGOT) 57 U/L (15-37) Alanine Aminotransferase (ALT/SGPT) 51 U/L (12-78) Alkaline Phosphatase 285 U/L (46-116) C-Reactive Protein, Quantitative 4.8 mg/dL (0.00-0.90) Pro-B-Type Natriuretic Peptide > 82083 pg/mL (0-125) Total Protein 6.2 G/DL (6.4-8.2) Albumin 1.9 G/DL (3.4-5.0) Globulin 4.3 g/dL Albumin/Globulin Ratio 0.4 (1.0-2.7) Height (Feet): 5 Height (Inches): 4.00 Weight (Pounds): 112 Objective Physical Exam vitals: reviewed gen: nad pulm: on trach+ / vent, decreased breath sounds left, right perm+ cv: rrr, no gmr abd: sfot, nt, nd ++ gt ext: no cce + right Gio Rosa MD Oct 11, 2019 06:10
[2019-10-11 06:23] LABS: BASOPHILS % (AUTO) 0.1 % (0.0-2.0); EOSINOPHILS % (AUTO) 0.1 % (0.0-3.0); HEMATOCRIT 26.5 % (37.0-47.0); HEMOGLOBIN 9.7 G/DL (12.0-16.0); LYMPHOCYTES % (AUTO) 24.2 % (20.0-45.0); MEAN CORPUSCULAR VOLUME 86 FL (80-99); MONOCYTES % (AUTO) 3.1 % (1.0-10.0); NEUTROPHILS % (AUTO) 72.5 % (45.0-75.0); PLATELET COUNT 182 K/UL (150-450); RED BLOOD COUNT 3.07 M/UL (4.20-5.40); RED CELL DISTRIBUTION WIDTH 13.8 % (11.6-14.8)
--- NOTE | 2019-10-11 06:27 | General Progress Note ---
Assessment/Plan Status: stable, not improved, unchanged, deteriorating Assessment/Plan: Assessment - Severe ulcerative esophagitis - mild elevation in LFT, Hepatitis B/C negative --> now sudden rise - ? related to new 1.9 cm mass near GB - ? autoimmune / high ESR - abnormal liver on CT - ? chronic disease / fibrosis - Resp failure - trach - s/p recent Chest tube and removal - Renal failure - aspiration risk --> s/p PEG - anemia - bradycardia - Poor prognosis Recommendations - CT reviewed - check autoimmune markers - pending>>> neg JOLIE - check AFP - GT care - water flushes - elevate HOB - monitor H&H - ppi patient poor candidate for GI procedures - vent -patient not a candidate for liver biopsy -given elevated SM Ab and igg, neg hepatitis panel >>>prednisone 25 mg and will cont to rosio off - imuran 50 mg -fu LFTS -drop in H&H without obvious bleeding>>> repeat cbc Subjective ROS Limited/Unobtainable: No Allergies: Coded Allergies: VANCOMYCIN (Unverified Allergy, Unknown, 08/02/19) Subjective s/p blood transfusion Objective Last 24 Hour Vital Signs Date Time Temp Pulse Resp B/P (MAP) Pulse Ox O2 Delivery O2 Flow Rate FiO2 10/11/19 05:44 126/71 10/11/19 05:09 74 18 21 10/11/19 04:10 Mechanical Ventilator 10/11/19 04:10 21 10/11/19 03:31 80 18 21 10/11/19 01:26 79 18 21 10/11/19 00:07 59 10/11/19 00:07 21 10/11/19 00:00 97.1 76 18 112/61 (78) 100 10/11/19 00:00 Mechanical Ventilator 10/10/19 23:41 72 18 21 10/10/19 22:46 140/60 10/10/19 21:14 64 18 21 10/10/19 20:00 97.4 59 18 140/60 (86) 94 10/10/19 20:00 59 10/10/19 19:56 21 10/10/19 19:55 Mechanical Ventilator 10/10/19 19:39 67 20 21 10/10/19 19:06 55 10/10/19 17:32 62 154/74 10/10/19 16:00 21 10/10/19 16:00 97.1 66 16 154/76 (102) 100 10/10/19 16:00 Mechanical Ventilator 10/10/19 16:00 60 10/10/19 15:00 67 21 21 10/10/19 14:03 124/65 10/10/19 12:00 65 10/10/19 12:00 97.0 68 16 124/68 (86) 100 10/10/19 12:00 Mechanical Ventilator 10/10/19 12:00 21 10/10/19 12:00 97.0 68 16 124/68 (86) 100 10/10/19 10:35 68 18 21 10/10/19 09:42 84 140/65 10/10/19 09:40 140/65 10/10/19 08:00 Mechanical Ventilator 10/10/19 08:00 69 10/10/19 08:00 98.2 77 16 144/76 (98) 100 10/10/19 08:00 21 10/10/19 06:55 84 18 21 Intake and Output 10/10/19 10/11/19 19:00 07:00 Intake Total 992.5 ml 702.5 ml Output Total 250 ml 200 ml Balance 742.5 ml 502.5 ml Intake Free Water 150 ml IV Total 172.5 ml 117.5 ml Tube Feeding 420 ml 385 ml Blood Product 250 ml Other 200 ml Output Urine Total 250 ml 200 ml # Bowel Movements 3 3 Laboratory Tests 10/10/19 10:30: White Blood Count 13.6H, Red Blood Count 2.44L, Hemoglobin 7.5L, Hematocrit 21.5L, Mean Corpuscular Volume 88, Mean Corpuscular Hemoglobin 30.9, Mean Corpuscular Hemoglobin Concent 35.0, Red Cell Distribution Width 14.5, Platelet Count 161, Mean Platelet Volume 5.0L, Neutrophils (%) (Auto) , Lymphocytes (%) ( Auto) , Monocytes (%) (Auto) , Eosinophils (%) (Auto) , Basophils (%) (Auto) , Differential Total Cells Counted 100, Neutrophils % (Manual) 60, Lymphocytes % ( Manual) 34, Monocytes % (Manual) 6, Eosinophils % (Manual) 0, Basophils % ( Manual) 0, Band Neutrophils 0, Platelet Estimate Adequate, Platelet Morphology Normal, Hypochromasia 1+, Anisocytosis 1+ 10/11/19 03:08: White Blood Count [Pending], Red Blood Count [Pending], Hemoglobin [Pending], Hematocrit [Pending], Mean Corpuscular Volume [Pending], Mean Corpuscular Hemoglobin [Pending], Mean Corpuscular Hemoglobin Concent [Pending], Red Cell Distribution Width [Pending], Platelet Count [Pending], Mean Platelet Volume [ Pending], Neutrophils (%) (Auto) [Pending], Lymphocytes (%) (Auto) [Pending], Monocytes (%) (Auto) [Pending], Eosinophils (%) (Auto) [Pending], Basophils (%) (Auto) [Pending], Sodium Level [Pending], Potassium Level [Pending], Chloride Level [Pending], Carbon Dioxide Level [Pending], Blood Urea Nitrogen [Pending], Creatinine [Pending], Estimat Glomerular Filtration Rate [Pending], Glucose Level [Pending], Calcium Level [Pending], Phosphorus Level [Pending], Magnesium Level [Pending], Total Bilirubin [Pending], Aspartate Amino Transf (AST/SGOT) [ Pending], Alanine Aminotransferase (ALT/SGPT) [Pending], Alkaline Phosphatase [ Pending], Total Protein [Pending], Albumin [Pending], Globulin [Pending] Height (Feet): 5 Height (Inches): 4.00 Weight (Pounds): 112 General Appearance: no apparent distress EENT: normal ENT inspection Neck: supple Cardiovascular: normal rate Respiratory/Chest: decreased breath sounds Abdomen: normal bowel sounds, non tender, soft Extremities: non-tender Kenny Rudolph MD Oct 11, 2019 06:27
[2019-10-11 06:47] LABS: ALANINE AMINOTRANSFERASE 110 U/L (12-78); ALBUMIN 1.9 G/DL (3.4-5.0); ALBUMIN/GLOBULIN RATIO 0.4 (1.0-2.7); ALKALINE PHOSPHATASE 322 U/L (46-116); ANION GAP 14 mmol/L (5-15); ASPARTATE AMINO TRANSFERASE 72 U/L (15-37); BILIRUBIN,TOTAL 0.4 MG/DL (0.2-1.0); BLOOD UREA NITROGEN 112 mg/dL (7-18); CARBON DIOXIDE 24 MMOL/L (21-32); CHLORIDE 101 MMOL/L (98-107); POTASSIUM 3.7 MMOL/L (3.5-5.1); SODIUM 139 MMOL/L (136-145)
[2019-10-11 07:26] LABS: PHOSPHORUS 4.4 MG/DL (2.5-4.9)
[2019-10-11 08:00] VITALS: BP 147/90
--- NOTE | 2019-10-11 09:01 | Critical Care Progress Note ---
Assessment/Plan Assessment/Plan respiratory failure hypoxemia chronic renal failure toxic met encephalopathy severe protein calorie malnutrition cachexia left lung whiteout/collapse, anemia pulmonary edema + pleural effusion s/p tap anasarca s/p CT placement and removal s/p trach hypernatremia leukocytosis ulcerative esophagitis PLAN trach care as is monitor imaging care noted and reviewed monitor for fluid retention and effusions and repeat tap prn prognosis for recovery poor renal follow up and dialysis prognosis poor overall for change elevated head and monitor ROM watch fluid status and keep negative nutrition and monitor residuals off load as able and monitor skin exam ROM as able and monitor contractures prognosis poor for recovery difficult to optimize further impression, plan, and exam edited and reviewed in detail care discussed with information assurance manager - Subjective Interval Events: overall care reviewed on vent adequate oxygen needs Condition: unchanged EKG Rhythm: Sinus Rhythm Residuals: minimal Tube Feeding Tolerated: yes I&O: Intake and Output 10/10/19 10/11/19 19:00 07:00 Intake Total 992.5 ml 702.5 ml Output Total 250 ml 200 ml Balance 742.5 ml 502.5 ml Intake Free Water 150 ml IV Total 172.5 ml 117.5 ml Tube Feeding 420 ml 385 ml Blood Product 250 ml Other 200 ml Output Urine Total 250 ml 200 ml # Bowel Movements 3 3 Critical Care - Objective ET-Tube: 7.0 ET Position: 19 Last 24 Hour Vital Signs Date Time Temp Pulse Resp B/P (MAP) Pulse Ox O2 Delivery O2 Flow Rate FiO2 10/11/19 08:38 75 22 21 10/11/19 08:37 100 10/11/19 07:00 83 19 21 10/11/19 05:44 126/71 10/11/19 05:09 74 18 21 10/11/19 04:10 Mechanical Ventilator 10/11/19 04:10 21 10/11/19 04:00 98.3 71 18 126/67 (86) 100 10/11/19 04:00 71 10/11/19 03:31 80 18 21 10/11/19 01:26 79 18 21 10/11/19 00:07 59 10/11/19 00:07 21 10/11/19 00:00 97.1 76 18 112/61 (78) 100 10/11/19 00:00 Mechanical Ventilator 10/10/19 23:41 72 18 21 4/27/20 22:46 140/60 10/10/19 21:14 64 18 21 10/10/19 20:00 97.4 59 18 140/60 (86) 94 10/10/19 20:00 59 10/10/19 19:56 21 10/10/19 19:55 Mechanical Ventilator 10/10/19 19:39 67 20 21 10/10/19 19:06 55 10/10/19 17:32 62 154/74 10/10/19 16:00 21 10/10/19 16:00 97.1 66 16 154/76 (102) 100 10/10/19 16:00 Mechanical Ventilator 10/10/19 16:00 60 10/10/19 15:00 67 21 21 10/10/19 14:03 124/65 10/10/19 12:00 65 10/10/19 12:00 97.0 68 16 124/68 (86) 100 10/10/19 12:00 Mechanical Ventilator 10/10/19 12:00 21 10/10/19 12:00 97.0 68 16 124/68 (86) 100 10/10/19 10:35 68 18 21 10/10/19 09:42 84 140/65 10/10/19 09:40 140/65 Labs: Labs Test 10/10/19 03:40 10/10/19 10:30 10/11/19 03:08 White Blood Count 10.0 K/UL (4.8-10.8) 13.6 K/UL (4.8-10.8) 11.0 K/UL (4.8-10.8) Red Blood Count 2.30 M/UL (4.20-5.40) 2.44 M/UL (4.20-5.40) 3.07 M/UL (4.20-5.40) Hemoglobin 7.1 G/DL (12.0-16.0) 7.5 G/DL (12.0-16.0) 9.7 G/DL (12.0-16.0) Hematocrit 20.3 % (37.0-47.0) 21.5 % (37.0-47.0) 26.5 % (37.0-47.0) Mean Corpuscular Volume 88 FL (80-99) 88 FL (80-99) 86 FL (80-99) Mean Corpuscular Hemoglobin 31.0 PG (27.0-31.0) 30.9 PG (27.0-31.0) 31.6 PG (27.0-31.0) Mean Corpuscular Hemoglobin Concent 35.0 G/DL (32.0-36.0) 35.0 G/DL (32.0-36.0) 36.6 G/DL (32.0-36.0) Red Cell Distribution Width 14.7 % (11.6-14.8) 14.5 % (11.6-14.8) 13.8 % (11.6-14.8) Platelet Count 180 K/UL (150-450) 161 K/UL (150-450) 182 K/UL (150-450) Mean Platelet Volume 5.2 FL (6.5-10.1) 5.0 FL (6.5-10.1) 6.2 FL (6.5-10.1) Neutrophils (%) (Auto) % (45.0-75.0) % (45.0-75.0) 72.5 % (45.0-75.0) Lymphocytes (%) (Auto) % (20.0-45.0) % (20.0-45.0) 24.2 % (20.0-45.0) Monocytes (%) (Auto) % (1.0-10.0) % (1.0-10.0) 3.1 % (1.0-10.0) Eosinophils (%) (Auto) % (0.0-3.0) % (0.0-3.0) 0.1 % (0.0-3.0) Basophils (%) (Auto) % (0.0-2.0) % (0.0-2.0) 0.1 % (0.0-2.0) Differential Total Cells Counted 100 100 Neutrophils % (Manual) 61 % (45-75) 60 % (45-75) Lymphocytes % (Manual) 32 % (20-45) 34 % (20-45) Monocytes % (Manual) 7 % (1-10) 6 % (1-10) Eosinophils % (Manual) 0 % (0-3) 0 % (0-3) Basophils % (Manual) 0 % (0-2) 0 % (0-2) Band Neutrophils 0 % (0-8) 0 % (0-8) Platelet Estimate Adequate Adequate Platelet Morphology Normal Normal Hypochromasia 1+ 1+ Anisocytosis 1+ 1+ Sodium Level 137 MMOL/L (136-145) 139 MMOL/L (136-145) Potassium Level 3.2 MMOL/L (3.5-5.1) 3.7 MMOL/L (3.5-5.1) Chloride Level 100 MMOL/L (98-107) 101 MMOL/L (98-107) Carbon Dioxide Level 24 MMOL/L (21-32) 24 MMOL/L (21-32) Anion Gap 13 mmol/L (5-15) 14 mmol/L (5-15) Blood Urea Nitrogen 104 mg/dL (7-18) 112 mg/dL (7-18) Creatinine 2.8 MG/DL (0.55-1.30) 3.0 MG/DL (0.55-1.30) Estimat Glomerular Filtration Rate 16.3 mL/min (>60) 15.1 mL/min (>60) Glucose Level 155 MG/DL (74-106) 225 MG/DL (74-106) Calcium Level 8.4 MG/DL (8.5-10.1) 8.0 MG/DL (8.5-10.1) Phosphorus Level 2.1 MG/DL (2.5-4.9) 4.4 MG/DL (2.5-4.9) Magnesium Level 2.4 MG/DL (1.8-2.4) 2.4 MG/DL (1.8-2.4) Total Bilirubin 0.4 MG/DL (0.2-1.0) 0.4 MG/DL (0.2-1.0) Gamma Glutamyl Transpeptidase 59 U/L (5-85) Aspartate Amino Transf (AST/SGOT) 57 U/L (15-37) 72 U/L (15-37) Alanine Aminotransferase (ALT/SGPT) 51 U/L (12-78) 110 U/L (12-78) Alkaline Phosphatase 285 U/L (46-116) 322 U/L (46-116) C-Reactive Protein, Quantitative 4.8 mg/dL (0.00-0.90) Pro-B-Type Natriuretic Peptide > 19303 pg/mL (0-125) Total Protein 6.2 G/DL (6.4-8.2) 6.4 G/DL (6.4-8.2) Albumin 1.9 G/DL (3.4-5.0) 1.9 G/DL (3.4-5.0) Globulin 4.3 g/dL 4.5 g/dL Albumin/Globulin Ratio 0.4 (1.0-2.7) 0.4 (1.0-2.7) Objective: WDWN NAD trach in place reduced breath sounds without rhonchi or wheeze [id number] without MRG NABS nontender no HSM no CCE contractures feeding tube in place no distention reduced LOC and weak nonfocal cachectic reviewed and edited Accucheck: 89 Malcolm Cruz MD Oct 11, 2019 09:01
--- NOTE | 2019-10-11 09:19 | Diagnostic Imaging Report ---
Indication: Shortness of breath Technique: One view of the chest Comparison: 10/07/2019 Findings: Tracheostomy, right jugular tunneled dialysis catheter again demonstrated. Small left pleural effusion and possible retrocardiac consolidation or atelectasis persists, unchanged. Normal heart size. Findings are unchanged Impression: Unchanged, over 4 days, findings as above.
[2019-10-11] MEDS: Doxazosin 1mg Tab GT SCH ×2 (09:21→22:31)
--- NOTE | 2019-10-11 09:21 | General Progress Note ---
Assessment/Plan Problem List: (1) Failure to thrive (0-17) ICD Codes: R62.51 - Failure to thrive (0-17) SNOMED: 339628489 (2) Hypertensive kidney disease ICD Codes: I12.9 - Hypertensive chronic kidney disease with stage 1 through stage 4 chronic kidney disease, or unspecified chronic kidney disease SNOMED: 71273727 (3) Pneumonia ICD Codes: J18.9 - Pneumonia, unspecified organism SNOMED: 211791834 Qualifiers: Qualified Codes: J18.9 - Pneumonia, unspecified organism (4) ESRD (end stage renal disease) ICD Codes: N18.6 - End stage renal disease SNOMED: 60716756 (5) Septic arthritis ICD Codes: M00.9 - Pyogenic arthritis, unspecified SNOMED: 400790089 (6) Thrombocytopenia ICD Codes: D69.6 - Thrombocytopenia, unspecified SNOMED: 799573802 (7) Hypotension ICD Codes: I95.9 - Hypotension, unspecified SNOMED: 20058104 Qualifiers: Qualified Codes: I95.3 - Hypotension of hemodialysis (8) Malnutrition ICD Codes: E46 - Unspecified protein-calorie malnutrition SNOMED: 93050296 Status: stable, not improved, unchanged, deteriorating Assessment/Plan: Continue vent support. Wean as able. Suctioning and pulmonary toilet. Continue G-tube feedings. Monitor residuals bp rx Hemodialysis with ultrafiltration per nephrology. Turn every 2 hours and good skin care. monitor labs/lfts steroids/imuran per GI. iv abx transfuse 1 unit prbcs monitor h/h Discharge planning in progress Subjective ROS Limited/Unobtainable: Yes Constitutional: Reports: malaise, weakness HEENT: Reports: no symptoms Cardiovascular: Reports: no symptoms Respiratory: Reports: sputum Gastrointestinal/Abdominal: Reports: difficulty swallowing Genitourinary: Reports: no symptoms Neurologic/Psychiatric: Reports: anxiety, emotional problems, pre-existing deficit Endocrine: Reports: no symptoms Hematologic/Lymphatic: Reports: anemia Allergies: Coded Allergies: VANCOMYCIN (Unverified Allergy, Unknown, 08/02/19) All Systems: reviewed and negative except above Subjective No overnight events. Remained stable on the ventilator. Awake and alert. Tolerating G-tube feeds. No fevers or chills noted. LFTs stable. h/h stable. no bleeding. On antibiotics for pneumonia. On steroids and Imuran for autoimmune hepatitis. bp still running high. Objective Last 24 Hour Vital Signs Date Time Temp Pulse Resp B/P (MAP) Pulse Ox O2 Delivery O2 Flow Rate FiO2 10/11/19 08:38 75 22 21 10/11/19 08:37 100 10/11/19 07:00 83 19 21 10/11/19 05:44 126/71 10/11/19 05:09 74 18 21 10/11/19 04:10 Mechanical Ventilator 10/11/19 04:10 21 10/11/19 04:00 98.3 71 18 126/67 (86) 100 10/11/19 04:00 71 10/11/19 03:31 80 18 21 10/11/19 01:26 79 18 21 10/11/19 00:07 59 10/11/19 00:07 21 10/11/19 00:00 97.1 76 18 112/61 (78) 100 10/11/19 00:00 Mechanical Ventilator 10/10/19 23:41 72 18 21 10/10/19 22:46 140/60 10/10/19 21:14 64 18 21 10/10/19 20:00 97.4 59 18 140/60 (86) 94 10/10/19 20:00 59 10/10/19 19:56 21 10/10/19 19:55 Mechanical Ventilator 10/10/19 19:39 67 20 21 10/10/19 19:06 55 10/10/19 17:32 62 154/74 10/10/19 16:00 21 10/10/19 16:00 97.1 66 16 154/76 (102) 100 10/10/19 16:00 Mechanical Ventilator 10/10/19 16:00 60 10/10/19 15:00 67 21 21 10/10/19 14:03 124/65 10/10/19 12:00 65 10/10/19 12:00 97.0 68 16 124/68 (86) 100 10/10/19 12:00 Mechanical Ventilator 10/10/19 12:00 21 10/10/19 12:00 97.0 68 16 124/68 (86) 100 10/10/19 10:35 68 18 21 10/10/19 09:42 84 140/65 10/10/19 09:40 140/65 Intake and Output 10/10/19 10/11/19 19:00 07:00 Intake Total 992.5 ml 702.5 ml Output Total 250 ml 200 ml Balance 742.5 ml 502.5 ml Intake Free Water 150 ml IV Total 172.5 ml 117.5 ml Tube Feeding 420 ml 385 ml Blood Product 250 ml Other 200 ml Output Urine Total 250 ml 200 ml # Bowel Movements 3 3 Laboratory Tests 10/10/19 10:30: White Blood Count 13.6H, Red Blood Count 2.44L, Hemoglobin 7.5L, Hematocrit 21.5L, Mean Corpuscular Volume 88, Mean Corpuscular Hemoglobin 30.9, Mean Corpuscular Hemoglobin Concent 35.0, Red Cell Distribution Width 14.5, Platelet Count 161, Mean Platelet Volume 5.0L, Neutrophils (%) (Auto) , Lymphocytes (%) ( Auto) , Monocytes (%) (Auto) , Eosinophils (%) (Auto) , Basophils (%) (Auto) , Differential Total Cells Counted 100, Neutrophils % (Manual) 60, Lymphocytes % ( Manual) 34, Monocytes % (Manual) 6, Eosinophils % (Manual) 0, Basophils % ( Manual) 0, Band Neutrophils 0, Platelet Estimate Adequate, Platelet Morphology Normal, Hypochromasia 1+, Anisocytosis 1+ 10/11/19 03:08: White Blood Count 11.0H, Red Blood Count 3.07L, Hemoglobin 9.7L, Hematocrit 26.5L, Mean Corpuscular Volume 86, Mean Corpuscular Hemoglobin 31.6H, Mean Corpuscular Hemoglobin Concent 36.6H, Red Cell Distribution Width 13.8, Platelet Count 182, Mean Platelet Volume 6.2L, Neutrophils (%) (Auto) 72.5, Lymphocytes (%) (Auto) 24.2, Monocytes (%) (Auto) 3.1, Eosinophils (%) (Auto) 0.1, Basophils (%) (Auto) 0.1, Sodium Level 139, Potassium Level 3.7, Chloride Level 101, Carbon Dioxide Level 24, Anion Gap 14, Blood Urea Nitrogen 112H, Creatinine 3.0H, Estimat Glomerular Filtration Rate 15.1, Glucose Level 225H, Calcium Level 8.0L, Phosphorus Level 4.4, Magnesium Level 2.4, Total Bilirubin 0.4, Aspartate Amino Transf (AST/SGOT) 72H, Alanine Aminotransferase (ALT/SGPT) 110H, Alkaline Phosphatase 322H, Total Protein 6.4, Albumin 1.9L, Globulin 4.5, Albumin/Globulin Ratio 0.4L Height (Feet): 5 Height (Inches): 4.00 Weight (Pounds): 112 Objective General Appearance: WD/WN, awake. looks around. no distress. thin and frail Neck: supple +trach Cardiovascular: normal rate Respiratory/Chest: rhonchi - bilaterally Abdomen: normal bowel sounds, non tender, soft, no organomegaly Edema: no edema noted Arm (L), no edema noted Arm (R), no edema noted Leg (L), no edema noted Leg (R), no edema noted Pedal (L), no edema noted Pedal (R), no edema noted Generalized Neurologic: disoriented, aphasia Skin: +excoriations Nate Beltran MD Oct 11, 2019 09:21
[2019-10-11] MEDS: Losartan 50mg tab GT SCH (09:26)
[2019-10-11] MEDS: Pantoprazole Inj IVP SCH ×2 (09:28→22:31)
[2019-10-11] MEDS: Metamucil Pkt ORAL SCH (09:29)
[2019-10-11] MEDS: azaTHIOprine 50 MG TAB ORAL SCH (09:29)
--- NOTE | 2019-10-11 10:44 | Infectious Diseases Prog Note ---
"Assessment/Plan Assessment/Plan antibiotics : zosyn 4.23.20 - A 1. klebsiella | enterobacter | proteus pneumonia COVID 19 negative 2. right shoulder septic arthritis with staph aureus s/p rx 3. pleural effusion 4. thrombocytopenia resolved 7. diabetes mellitus 8. hypertension 9. respiratory failure 9. leucocytosis resolved 10. s/p scabies therapy at [facility] in 2019 P 1. continue zosyn 1 more day 2. will follow up cultures Subjective ROS Limited/Unobtainable: Yes Allergies: Coded Allergies: VANCOMYCIN (Unverified Allergy, Unknown, 08/02/19) Objective Vital Signs Last 24 Hour Vital Signs Date Time Temp Pulse Resp B/P (MAP) Pulse Ox O2 Delivery O2 Flow Rate FiO2 10/11/19 09:26 83 157/85 10/11/19 09:26 157/85 10/11/19 08:38 75 22 21 10/11/19 08:37 100 10/11/19 07:00 83 19 21 10/11/19 05:44 126/71 10/11/19 05:09 74 18 21 10/11/19 04:10 Mechanical Ventilator 10/11/19 04:10 21 10/11/19 04:00 98.3 71 18 126/67 (86) 100 10/11/19 04:00 71 10/11/19 03:31 80 18 21 10/11/19 01:26 79 18 21 10/11/19 00:07 59 10/11/19 00:07 21 10/11/19 00:00 97.1 76 18 112/61 (78) 100 10/11/19 00:00 Mechanical Ventilator 10/10/19 23:41 72 18 21 10/10/19 22:46 140/60 10/10/19 21:14 64 18 21 10/10/19 20:00 97.4 59 18 140/60 (86) 94 10/10/19 20:00 59 10/10/19 19:56 21 10/10/19 19:55 Mechanical Ventilator 10/10/19 19:39 67 20 21 10/10/19 19:06 55 10/10/19 17:32 62 154/74 10/10/19 16:00 21 10/10/19 16:00 97.1 66 16 154/76 (102) 100 10/10/19 16:00 Mechanical Ventilator 10/10/19 16:00 60 10/10/19 15:00 67 21 21 10/10/19 14:03 124/65 10/10/19 12:00 65 10/10/19 12:00 97.0 68 16 124/68 (86) 100 10/10/19 12:00 Mechanical Ventilator 10/10/19 12:00 21 10/10/19 12:00 97.0 68 16 124/68 (86) 100 Height (Feet): 5 Height (Inches): 4.00 Weight (Pounds): 112 HEENT: status post trach Respiratory/Chest: lungs clear Cardiovascular: normal rate, regular rhythm, no gallop/murmur Abdomen: soft, non tender, other - GT Extremities: no edema, other - right groin and right subclavian catheter Laboratory Tests Test 10/11/19 03:08 White Blood Count 11.0 K/UL (4.8-10.8) H Red Blood Count 3.07 M/UL (4.20-5.40) L Hemoglobin 9.7 G/DL (12.0-16.0) L Hematocrit 26.5 % (37.0-47.0) L Mean Corpuscular Volume 86 FL (80-99) Mean Corpuscular Hemoglobin 31.6 PG (27.0-31.0) H Mean Corpuscular Hemoglobin Concent 36.6 G/DL (32.0-36.0) H Red Cell Distribution Width 13.8 % (11.6-14.8) Platelet Count 182 K/UL (150-450) Mean Platelet Volume 6.2 FL (6.5-10.1) L Neutrophils (%) (Auto) 72.5 % (45.0-75.0) Lymphocytes (%) (Auto) 24.2 % (20.0-45.0) Monocytes (%) (Auto) 3.1 % (1.0-10.0) Eosinophils (%) (Auto) 0.1 % (0.0-3.0) Basophils (%) (Auto) 0.1 % (0.0-2.0) Sodium Level 139 MMOL/L (136-145) Potassium Level 3.7 MMOL/L (3.5-5.1) Chloride Level 101 MMOL/L (98-107) Carbon Dioxide Level 24 MMOL/L (21-32) Anion Gap 14 mmol/L (5-15) Blood Urea Nitrogen 112 mg/dL (7-18) H Creatinine 3.0 MG/DL (0.55-1.30) H Estimat Glomerular Filtration Rate 15.1 mL/min (>60) Glucose Level 225 MG/DL (74-106) H Calcium Level 8.0 MG/DL (8.5-10.1) L Phosphorus Level 4.4 MG/DL (2.5-4.9) Magnesium Level 2.4 MG/DL (1.8-2.4) Total Bilirubin 0.4 MG/DL (0.2-1.0) Aspartate Amino Transf (AST/SGOT) 72 U/L (15-37) H Alanine Aminotransferase (ALT/SGPT) 110 U/L (12-78) H Alkaline Phosphatase 322 U/L (46-116) H Total Protein 6.4 G/DL (6.4-8.2) Albumin 1.9 G/DL (3.4-5.0) L Globulin 4.5 g/dL Albumin/Globulin Ratio 0.4 (1.0-2.7) L Current Medications Medications (Trade) Dose Ordered Sig/Javier Route PRN Reason Start Time Stop Time Status Last Admin Dose Admin Amlodipine Besylate (Norvasc) 5 mg BID GT 10/08/19 18:00 10/25/19 08:59 10/11/19 09:26 Azathioprine (Imuran) 50 mg DAILY ORAL 10/05/19 09:00 01/03/20 08:59 10/11/19 09:29 Chlorhexidine Gluconate (Nae-Hex 2%) 1 applic DAILY@1999 TOPIC 09/17/19 20:00 12/16/19 19:59 10/10/19 22:45 Dextrose (Dextrose 50%) 25 ml Q30M PRN IV Hypoglycemia 09/02/19 06:15 12/01/19 06:14 09/04/19 12:11 Dextrose (Dextrose 50%) 50 ml Q30M PRN IV Hypoglycemia 09/02/19 06:15 12/01/19 06:14 Doxazosin Mesylate (Cardura) 2 mg EVERY 12 HOURS GT 10/07/19 09:00 11/06/19 08:59 10/11/19 09:21 Epoetin Thomas (Epoetin Thomas-EPBX(NON ESRD)) 4,000 unit THU-THU-THU SUBQ 10/05/19 21:00 01/03/20 20:59 10/10/19 22:51 Hydralazine HCl (Apresoline) 10 mg Q4H PRN IV BP OVER 160 SYST 10/08/19 10:30 01/06/20 10:29 Hydralazine HCl (Apresoline) 100 mg Q8HR GT 10/10/19 14:00 01/08/20 05:59 10/11/19 05:44 Levothyroxine Sodium (Synthroid) 125 mcg DAILY@0630 ORAL 09/22/19 06:30 10/22/19 06:29 10/11/19 05:42 Losartan Potassium (Cozaar) 100 mg DAILY GT 10/06/19 09:00 11/05/19 08:59 10/11/19 09:26 Pantoprazole (Protonix) 40 mg EVERY 12 HOURS IVP 10/10/19 13:00 11/09/19 12:59 10/11/19 09:28 Piperacillin Sod/ Tazobactam Sod 2.25 gm/Dextrose 55 ml @ 110 mls/hr Q8H IVPB 10/10/19 17:00 10/17/19 16:59 10/11/19 09:39 Prednisone (predniSONE) 25 mg DAILY ORAL 10/10/19 09:00 11/09/19 08:59 10/11/19 09:26 Psyllium Hydrophilic Mucilloid (Metamucil) 1 pkt DAILY ORAL 09/22/19 15:00 10/22/19 14:59 10/11/19 09:29 Melissa Solares MD Oct 11, 2019 10:44"
[2019-10-11 12:00] VITALS: BP 143/68
--- NOTE | 2019-10-11 14:48 | Surgery Progress Note ---
Surgery Progress Note Subjective Procedure Performed 1. tracheostomy 2 removal of left tube thoracostomy Additional Comments no acute events Objective Last 24 Hour Vital Signs Date Time Temp Pulse Resp B/P (MAP) Pulse Ox O2 Delivery O2 Flow Rate FiO2 10/11/19 14:17 145/65 10/11/19 12:37 72 18 21 10/11/19 12:00 97.7 72 18 143/68 (93) 100 10/11/19 11:35 69 10/11/19 11:01 81 24 21 10/11/19 09:26 83 157/85 10/11/19 09:26 157/85 10/11/19 08:38 75 22 21 10/11/19 08:37 100 10/11/19 08:00 99.5 74 18 147/90 (109) 99 10/11/19 08:00 21 10/11/19 07:35 81 10/11/19 07:00 83 19 21 10/11/19 05:44 126/71 10/11/19 05:09 74 18 21 10/11/19 04:10 Mechanical Ventilator 10/11/19 04:10 21 10/11/19 04:00 98.3 71 18 126/67 (86) 100 10/11/19 04:00 71 10/11/19 03:31 80 18 21 10/11/19 01:26 79 18 21 10/11/19 00:07 59 10/11/19 00:07 21 10/11/19 00:00 97.1 76 18 112/61 (78) 100 10/11/19 00:00 Mechanical Ventilator 10/10/19 23:41 72 18 21 10/10/19 22:46 140/60 10/10/19 21:14 64 18 21 10/10/19 20:00 97.4 59 18 140/60 (86) 94 10/10/19 20:00 59 10/10/19 19:56 21 10/10/19 19:55 Mechanical Ventilator 10/10/19 19:39 67 20 21 10/10/19 19:06 55 10/10/19 17:32 62 154/74 10/10/19 16:00 21 10/10/19 16:00 97.1 66 16 154/76 (102) 100 10/10/19 16:00 Mechanical Ventilator 10/10/19 16:00 60 10/10/19 15:00 67 21 21 I&O Intake and Output 10/10/19 10/11/19 19:00 07:00 Intake Total 992.5 ml 702.5 ml Output Total 250 ml 200 ml Balance 742.5 ml 502.5 ml Intake Free Water 150 ml IV Total 172.5 ml 117.5 ml Tube Feeding 420 ml 385 ml Blood Product 250 ml Other 200 ml Output Urine Total 250 ml 200 ml # Bowel Movements 3 3 Dressing: other Wound: other Drains: other Cardiovascular: RSR Respiratory: decreased breath sounds Abdomen: soft, non-tender, present bowel sounds Extremities: no cyanosis Laboratory Tests Test 10/11/19 03:08 White Blood Count 11.0 K/UL (4.8-10.8) H Red Blood Count 3.07 M/UL (4.20-5.40) L Hemoglobin 9.7 G/DL (12.0-16.0) L Hematocrit 26.5 % (37.0-47.0) L Mean Corpuscular Volume 86 FL (80-99) Mean Corpuscular Hemoglobin 31.6 PG (27.0-31.0) H Mean Corpuscular Hemoglobin Concent 36.6 G/DL (32.0-36.0) H Red Cell Distribution Width 13.8 % (11.6-14.8) Platelet Count 182 K/UL (150-450) Mean Platelet Volume 6.2 FL (6.5-10.1) L Neutrophils (%) (Auto) 72.5 % (45.0-75.0) Lymphocytes (%) (Auto) 24.2 % (20.0-45.0) Monocytes (%) (Auto) 3.1 % (1.0-10.0) Eosinophils (%) (Auto) 0.1 % (0.0-3.0) Basophils (%) (Auto) 0.1 % (0.0-2.0) Sodium Level 139 MMOL/L (136-145) Potassium Level 3.7 MMOL/L (3.5-5.1) Chloride Level 101 MMOL/L (98-107) Carbon Dioxide Level 24 MMOL/L (21-32) Anion Gap 14 mmol/L (5-15) Blood Urea Nitrogen 112 mg/dL (7-18) H Creatinine 3.0 MG/DL (0.55-1.30) H Estimat Glomerular Filtration Rate 15.1 mL/min (>60) Glucose Level 225 MG/DL (74-106) H Calcium Level 8.0 MG/DL (8.5-10.1) L Phosphorus Level 4.4 MG/DL (2.5-4.9) Magnesium Level 2.4 MG/DL (1.8-2.4) Total Bilirubin 0.4 MG/DL (0.2-1.0) Aspartate Amino Transf (AST/SGOT) 72 U/L (15-37) H Alanine Aminotransferase (ALT/SGPT) 110 U/L (12-78) H Alkaline Phosphatase 322 U/L (46-116) H Total Protein 6.4 G/DL (6.4-8.2) Albumin 1.9 G/DL (3.4-5.0) L Globulin 4.5 g/dL Albumin/Globulin Ratio 0.4 (1.0-2.7) L Assessment Post-op Diagnosis same Plan Problems: (1) Malnutrition Assessment & Plan: DAILY ESTIMATED NEEDS: Needs based on ESRD+ HD, underweight, wound/ 39.5kg 35-40 kcals/kg 7539-8212 total kcals 1.25-1.8 g protein/kg 49-71 g total protein 20-22 mL/kg 790-869 total fluid mLs NUTRITION DIAGNOSIS: * Increased kcal and protein needs r/t underweight status, HD needs, wuond healing as evidenced by pt is underweight per guidelines, ESRD, on HD, admitted non-blanching erythema wounds @ BL heels and sacrum * Swallowing difficulty R/T dysphagia as evidenced by E/M ENGINEER recommends temporary nonoral feeding at this time, s/p NGT insertion, on NGT feeding-> now s/p self removal, NPO. CURRENT TF:NPO PO DIET RECOMMENDATIONS: WHEN SAFE FOR ORAL DIET -> renal/ texture per E/M ENGINEER ENTERAL NUTRITION RECOMMENDATIONS: W/ GI access: Nepro @ 35ml/hr x 22 hrs to provide 770ml, 1386kcal, 62g prot, 560ml free water * W/ GI access, resume TF on Nepro * Initiate Nepro @ 15ml/hr x 6 hrs, advance 10ml q 4-6 hrs as tolerated to goal rate. * Hold 1 hour before and after Synthroid med * HOB over 30 degrees/ water flush per MD. ADDITIONAL RECOMMENDATIONS: 1) Calibrated bed scale wt for accurate CBW -> daily wt monitoring Per HD record: dry wt on 07/30=39.5kg (87lbs) 2) Wound care: (W/ GI access) add Nephorivte x 1 + Balta BID 3) Monitor NPO status: without GI access at this time, s/p pulling out NGT 4) Monitor for hypoglycemia while NPO 5) Monitor for continuity of HD (2) Septic arthritis Assessment & Plan: Pt presented on admission with generalized scaly rash . pt noted to be restless and scratching at skin. Bleeding from oral mucosa noted. Joint deformity noted to R shoulder. Surgical incision approximated with 11 sutures. Erythema but no exudate,or elevation in skin temp at site of incision. Historical incision R hip that is tunneled.Small amt seropurulent exudate noted. Periwound is erythematous,but no elevation in skin temp noted. No odor noted. Non-blanching erythema noted to sacrum. Perianal area is erythematous and excoriated. L heel is boggy with non-blanching erythema. R heel is soft with non-blanching erythema. No evidence of skin breakdown to all other bony prominences. Tx.plan: Cover R shoulder with Drsg and change daily and prn. Cleanse R hip wound with Saline. Apply Therahoney.Apply Cavilon Skin Barrier periwound. Cover with Optifoam drsg. Change every 3 days and prn. Apply Moisture Barrier Paste to perianal area and buttocks. Cover Sacrum with Optifoam drsg. Change every 3 days and prn. Apply Cavilon Skin Barrier to both heels. Cover each heel with Optifoam drsg. Change every 7 days and prn. APM/ELVIA Mattress overlay. Reposition at least every 2hours or as tolerated. Off-load heels with pillow. HD cath necessary HD as renal likely will need intubation s/p trach 19 x 11 x 11 mm hypoechoic area in the liver adjacent to the gallbladder fossa. Although location is typical for area of focal sparing in a fatty liver, there are no findings to indicate fatty liver and this is a new finding since fairly recent previous exam. Therefore the possibility of a process such as small abscess should be considered. Atrophic echogenic kidneys Negative for gallstones or dilated bile ducts sutures removed left chest wall (3) Wound, open, hip or thigh with complication Assessment & Plan: slow healing will need nutritional optimization difficult ng tube peg when stable sutures removed from right shoulder comfortable wean vent may need trach (4) Abscess of right hip (5) possible septic arthritis (6) Renal failure (ARF), acute on chronic Assessment & Plan: cont HD will need tunneled cath placement okay to use fem line for now but will need change soon. line monitored and clean dressings going well tunneled cath okay (7) Pneumonia Assessment & Plan: on vent support not tolerating weaning may need trach - s/p hemothorax likely after thoracentesis Chest CT noted Left chest tube placed With plan for trach chest tube can be considered but overall prognosis is very poor s/p trach left chest tub eout cxr noted and okay downgrade left pleural effusion dressings saturated will need to monitor. may need another chest tube as may not heal well on left side Anasarca, with as mentioned above diffuse edema of the soft tissues, trace ascites, and bilateral pleural effusions No hepatic abnormality to correlate with suspected small pericholecystic lesion in the liver described on recent sonogram. The lesion may be occult on noncontrast CT, may have been artifactual or may have resolved in the interim. Consider repeat sonography in a few days to assess progression No definite acute abdominal process otherwise Improved but still sizable left pleural effusion with minimal residual hemoperitoneum since prior CT scan of 09/01/2019. There is near complete atelectasis of the left lower lobe. There is a small right pleural effusion with atelectatic changes of the right lower lobe and right perihilar dense consolidation. These appear improved since a prior CT of 09/01/2019 Increased crazy paving type opacity within the right middle lobe since previous August [address], may reflect an area of increasing infiltrate, versus focal edema. There is also some dense consolidation of the perihilar right lower lobe which is improved since the previous August 31 CT Right groin temporary dialysis catheter in good position Atrophic kidneys, consistent with known history of chronic renal disease L2 compression fracture deformity, and advanced degenerative changes of the L2- L3 disc. Similar to prior study Marroquin catheter hold on repeat chest tube (8) Liver enzyme elevation Assessment & Plan: likely shock liver improving trend trending down will monitor Camilo James Oct 11, 2019 14:48
--- NOTE | 2019-10-11 15:41 | Nephrology Progress Note ---
Assessment/Plan Problem List: (1) Liver enzyme elevation Assessment: Acute (2) ESRD (end stage renal disease) on dialysis (3) Malnutrition (4) Anemia in CKD (chronic kidney disease) (5) Hypotension (6) Thrombocytopenia (7) Sepsis Assessment: klebsiella in blood Assessment -Early sepsis with shock. -Healthcare-associated pneumonia. -Severe protein-calorie malnutrition. -Thrombocytopenia. - End-stage renal disease. - History of hypertension. - Bradycardia. - HypoThyroid Plan Transfuse for anemia Change Prevacid to Protonix IV Hold phosphate binders K-Phos 1 dose IV Check can panel in a.m. Monitor hemoglobin hematocrit on prednisone and Imuran Will adjust blood pressure medications Hemodialysis done October 07 Next hemodialysis October 11 Previously Had 2 sets of blood culture October 04, culture results are negative Chest x-ray suggests new infiltrate: Right perihilar infiltrate, new since prior study of 09/21/2019 Can DC femoral dialysis catheter Patient had a right upper chest tunneled catheter placed October 06 Previously patient white blood cell counts mario, unclear if it is due to steroids or an underlying infectious process Smooth muscle antibody positive, Ig G elevated Liver enzymes elevated but declining Tracheostomy September 07 Last dialysis September 26, next dialysis today October 02 Chest tube on the left side was put in on September 01 was discontinued September 07 Patient transfused 3 units of packed RBCs for low hemoglobin Remains full code Blood pressure fluctuating, will start hydralazine via NG tube for blood pressure Magnesium and potassium supplement intravenously as needed Patient underwent PEG placement August 16 patient remains intubated on ventilator Discussed with RN Aim to wean from ventilator or consider tracheostomy Permacath was removed on August 12 Dialysis 08/11 Transfusion as needed Patient had hematemesis meds IV as possible Surveillance blood cultures tomorrow Plan to put the permacath back in on Thursday if cultures are negative keep BP and BS in check Inflammatory markers per orders Subjective ROS Limited/Unobtainable: Yes Objective Objective Last 24 Hour Vital Signs Date Time Temp Pulse Resp B/P (MAP) Pulse Ox O2 Delivery O2 Flow Rate FiO2 10/11/19 14:33 84 20 21 10/11/19 14:17 145/65 10/11/19 12:37 72 18 21 10/11/19 12:00 97.7 72 18 143/68 (93) 100 10/11/19 12:00 Mechanical Ventilator 10/11/19 11:35 69 10/11/19 11:01 81 24 21 10/11/19 09:26 83 157/85 10/11/19 09:26 157/85 10/11/19 08:38 75 22 21 10/11/19 08:37 100 10/11/19 08:00 99.5 74 18 147/90 (109) 99 10/11/19 08:00 Mechanical Ventilator 10/11/19 08:00 21 10/11/19 07:35 81 10/11/19 07:00 83 19 21 10/11/19 05:44 126/71 10/11/19 05:09 74 18 21 10/11/19 04:10 Mechanical Ventilator 10/11/19 04:10 21 10/11/19 04:00 98.3 71 18 126/67 (86) 100 10/11/19 04:00 71 10/11/19 03:31 80 18 21 10/11/19 01:26 79 18 21 10/11/19 00:07 59 10/11/19 00:07 21 10/11/19 00:00 97.1 76 18 112/61 (78) 100 10/11/19 00:00 Mechanical Ventilator 10/10/19 23:41 72 18 21 10/10/19 22:46 140/60 10/10/19 21:14 64 18 21 10/10/19 20:00 97.4 59 18 140/60 (86) 94 10/10/19 20:00 59 10/10/19 19:56 21 10/10/19 19:55 Mechanical Ventilator 10/10/19 19:39 67 20 21 10/10/19 19:06 55 10/10/19 17:32 62 154/74 10/10/19 16:00 21 10/10/19 16:00 97.1 66 16 154/76 (102) 100 10/10/19 16:00 Mechanical Ventilator 10/10/19 16:00 60 Intake and Output 10/10/19 10/11/19 19:00 07:00 Intake Total 992.5 ml 702.5 ml Output Total 250 ml 200 ml Balance 742.5 ml 502.5 ml Intake Free Water 150 ml IV Total 172.5 ml 117.5 ml Tube Feeding 420 ml 385 ml Blood Product 250 ml Other 200 ml Output Urine Total 250 ml 200 ml # Bowel Movements 3 3 Laboratory Tests 10/11/19 03:08: White Blood Count 11.0H, Red Blood Count 3.07L, Hemoglobin 9.7L, Hematocrit 26.5L, Mean Corpuscular Volume 86, Mean Corpuscular Hemoglobin 31.6H, Mean Corpuscular Hemoglobin Concent 36.6H, Red Cell Distribution Width 13.8, Platelet Count 182, Mean Platelet Volume 6.2L, Neutrophils (%) (Auto) 72.5, Lymphocytes (%) (Auto) 24.2, Monocytes (%) (Auto) 3.1, Eosinophils (%) (Auto) 0.1, Basophils (%) (Auto) 0.1, Sodium Level 139, Potassium Level 3.7, Chloride Level 101, Carbon Dioxide Level 24, Anion Gap 14, Blood Urea Nitrogen 112H, Creatinine 3.0H, Estimat Glomerular Filtration Rate 15.1, Glucose Level 225H, Calcium Level 8.0L, Phosphorus Level 4.4, Magnesium Level 2.4, Total Bilirubin 0.4, Aspartate Amino Transf (AST/SGOT) 72H, Alanine Aminotransferase (ALT/SGPT) 110H, Alkaline Phosphatase 322H, Total Protein 6.4, Albumin 1.9L, Globulin 4.5, Albumin/Globulin Ratio 0.4L Height (Feet): 5 Height (Inches): 4.00 Weight (Pounds): 112 General Appearance: no apparent distress EENT: other - Trached and vented Respiratory/Chest: decreased breath sounds Abdomen: soft, other Objective no change William Blackwood MD Oct 11, 2019 15:41
[2019-10-11 16:00] VITALS: BP 133/59
[2019-10-11 20:00] VITALS: BP 136/70
[2019-10-11] MEDS: Dyna-Hex 2% Top Sol 2oz TOPIC SCH (22:31)
[2019-10-12] VITALS: BP 148/69
[2019-10-12] MEDS: Piperacillin/Tazobactam 2.25 GM in D5W 55 ML IVPB SCH ×2 (02:12→10:14)
[2019-10-12 04:00] VITALS: BP 135/83
[2019-10-12 05:45] LABS: BASOPHILS % (AUTO) 0.2 % (0.0-2.0); EOSINOPHILS % (AUTO) 0.1 % (0.0-3.0); HEMATOCRIT 24.2 % (37.0-47.0); HEMOGLOBIN 8.7 G/DL (12.0-16.0); LYMPHOCYTES % (AUTO) 22.9 % (20.0-45.0); MEAN CORPUSCULAR VOLUME 87 FL (80-99); MONOCYTES % (AUTO) 2.6 % (1.0-10.0); NEUTROPHILS % (AUTO) 74.1 % (45.0-75.0); PLATELET COUNT 181 K/UL (150-450); RED BLOOD COUNT 2.79 M/UL (4.20-5.40); RED CELL DISTRIBUTION WIDTH 13.7 % (11.6-14.8); WHITE BLOOD COUNT 11.4 K/UL (4.8-10.8)
--- NOTE | 2019-10-12 05:45 | Progress Note ---
DATE: 10/11/2019 SUBJECTIVE: The patient remains on ventilator support, awake and alert. Thin trach secretions. Monitored rhythm, sinus with rare atrial ectopy. PHYSICAL EXAMINATION: VITAL SIGNS: Blood pressure 126/67, pulse 71, respiratory rate 18, and afebrile. LUNGS: Bilateral breath sounds. HEART: Regular rhythm and rate. Normal S1, S2. No new murmur. ABDOMEN: Soft. EXTREMITIES: No edema. LABORATORY AND DIAGNOSTIC DATA: Sputum culture positive for Klebsiella, Enterobacter, and Proteus. White count 11, hemoglobin 9.7. Sodium 139, potassium 3.7, bicarb 24, BUN 112, creatinine 3. Magnesium 2.4. Albumin 1.9. Liver function tests 72 and 110 with alkaline phosphatase 322. Chest x-ray today revealed dialysis catheter in place, small left effusion and retrocardiac consolidation. IMPRESSION: 1. Hypertensive heart disease with controlled blood pressure. 2. Bradycardia, resolved with correction of hypothyroid state. 3. Respiratory failure status post trach. 4. End-stage renal disease. 5. Autoimmune hepatitis improving with steroids and Imuran. 6. Healthcare-acquired pneumonia. PLAN: 1. Discharge planning. 2. Awaiting approval from subacute facility. 3. Continuing current cardiovascular regimen. 4. Antimicrobials per Infectious Diseases sharepoint consultant. Abel Stubbs M.D. DR: Lety JOB#: [id number] CC:
--- NOTE | 2019-10-12 06:05 | Hematology/Onc Progress Note ---
Assessment/Plan Assessment/Plan # Thrombocytopenia now THROMBOCYTOSIS - potential causes multifactorial, evaluate liver and viral etiologies to begin, in this case due to sepsis with septic shock also with cirrhosis and liver disease --> Hep panel and HIV ordered --> neg --> US abd to evaluate for cirrhosis and hsm ordered --> reviewed --> Peripheral smear ordered to evaluate for blasts /schistocytes --> none noted --> abx and other meds have been reviewed --> ok for ppx if plt >50k w/ either heparin or lovenox --> Transfuse if Plt < 20k and fever, or if Plt < 10k without fever --> okay for permacath change once plt better--> for 08/14 --> plt trend: 43-->83-->237k-->292-->341-->315-->388 -->444-->530-->252k-->344- >529->525k-->273 # Anemia of chronic disease due to underlying chronic medical issues, multifactorial v Gi bleed --> Anemia workup has been ordered, rule out gi bleed --> No evidence of hemolysis is noted, peripheral smear has been reviewed. --> Hgb goal >7. Transfuse prn. --> Epogen has been started --> HOLD OFF IRON ferritin is >1000 --> Medications have been reviewed --> low threshold for gi evaluation in case has occult + --> hgb 9-->6.7-->9.2 -->10.5-->10.6 -->10.7-->10-->10.5-->9.8-->10.4-->9.5--> 3.6-->9.6-->9.7-->10-->10.3-->11->9.9->8.3->8.7-->8.1-->8.9-->7.4->9.2-->7.1--> 9.7 --> blood tx: 08/11, 08/31, 10/03 --> CT Chest r/o hemothorax --> does show confirmation of a large left hemothorax. Complete atelectasis of the left lower lobe and partial left upper lobe atelectasis demonstrated. Mild rightward shift of the heart and mediastinum. --> stool ob negative # Leukocytosis with Sepsis with shock. --> abx as per id, recs noted--> off abx --> pressors as needed --> IS now on steriods --> wbc 15-->8-->13 # Healthcare-associated pneumonia. --> recs reviewed --> abx: jung/micafungin-->jung-->off --> 08/24 chest: moderate left pleural effusion # Severe protein-calorie malnutrition. --> nutritional support # End-stage renal disease --> had as renal hd --> with permacath # History of hypertension. --> per cards, now with Bradycardia. # Resp failure s/p vent/trach # HypoThyroid # Ngt feedings # Dvt ppx scd's The timing of this note does not necessarily reflect the time of the patient was seen. Greatly appreciate consultation. Subjective Constitutional: Denies: no symptoms, chills, fever, malaise, weakness, other HEENT: Denies: no symptoms, eye pain, blurred vision, tearing, double vision, ear pain, ear discharge, nose pain, nose congestion, throat pain, throat swelling, mouth pain, mouth swelling, other Cardiovascular: Denies: no symptoms, chest pain, edema, irregular heart rate, lightheadedness, palpitations, syncope, other Respiratory: Denies: no symptoms, cough, shortness of breath, SOB with excertion, SOB at rest, sputum, wheezing, other Allergies: Coded Allergies: VANCOMYCIN (Unverified Allergy, Unknown, 08/02/19) Subjective 08/11: no bleeding or chills, labs reviewed, no major bleeding, plt less than 50k 08/12: icu, s/p blood, hgb improved to 9.2, 08/14: icu, pending consent for thora and permacath, labs reviewed 08/15: new permacath placed, no bleeding, for hd, plt much improved, started lovenox sq 08/16: ett to be adjusted, bp on high end, micafungin started, possible bronch 08/17: weaning as per pulm, no events otherwise, labs noted 08/18: no events no bleeding, remains confused on vent, for hd 08/20: icu, failed to wean, labs reviewed, jung 08/21: resting in bed, no overnight events, labs reviewed 08/22: awake, confused, restraints, no overnight events 08/23: no events, no bleeding, on ppi bid 08/24: icu, failed to wean, labs reviewed 08/25: no overnight events, us chest, restraints, afebrile 08/26 difficult in weaning, nad, seen by surg, pulm labs noted 08/27 awake on restraints, thoracentesis for am, labs reviewed 08/29 no bleeding, no night sweats, no major changes, on ppi bid 08/30 no major events, remains on vent, no bleeding, dw pcp 08/31 hgb dropped to 3.6, has been transfused with prbc, in icu, david Rn, ct chest pend 09/01 no major events, no bleeding, labs noted, hgb remains low, hgb 9.6 09/03 lethargic, left chest tube dry/intact, off abx, vent 09/04 remains on a vent, synthroid, labs reviewed 09/05 awake and alert, no acute events, hgb 9.8, no new orders 09/06 no bleeding or chills, labs noted, no major events overnight, david rn 09/07 no events, no night sweats, no bleeding, no fc, remains agitated in the am 09/08 remains in the icu, trach was done, on vent, abx off, on epo 09/10 transferred to sdu, restraints, vent, labs reviewed 09/11 tube feeds have been ongoing, no f/c, labs reviewed 09/12 no events, no bleeding, no night sweats, hgb 10 09/13 tsh is improved, remains confused, hgb is 11, no bleeding 09/14 no events, no bleeding, labs noted, vitals stable 09/15 confused, no acute events, restraints, dc planning 09/17 no new changes, no recent labs, placement pending 09/18 no events, no bleeding, no night sweats, fevers 09/19 nonverbal, vent, elevated bp, off abx 09/20 labs reviewed, david rn, no bleeding, meds reviewed 09/21 is a+o x 1, nonverbal, no bleeding, labs reviewed, no night sweats 09/22 no major events, no bleeding, no night sweats, no f/c, labs noted hgb 10.5 09/25 no events, no bleeding, labs noted, cbc reviewed 09/26 no events, with gtube feeds ongoing and with event, labs noted 09/27 labs have been reviewed, no night sweats, no fc 09/28 labs reviewed, no night sweats, hgb lower, but holding off on transfusion 09/29 alert, stool ob negative, h/h stable, dc planning 10/01 sdu, tsh improved, labs reviewed, elevated bp 10/02 no major events, no bleeding, labs reviewed, hgb 8, nv 10/03 no changes, labs reviewed, cbc noted, no bleeding, hgb 6.7, to get 1 unit prbc 10/04 labs noted, no bleeding epogen has been started, hgb 7.4, on epo 10/05 labs have been reviewed, no bleeding, hg low, no bleeding, confused 10/06 remains confused, yoruba speaking, with right abigail intact 10/08 on vent, with right permacath, and right abigail, labs noted 10/09 labs are noted, tfs are infusing, meds reviewed, no bleeding, hgb 7.1 10/10 is not in acute distress, epo has been given, no bleeding 10/11 nonverbal, hd as needed, with gtube feeds, trach to vent, no bleeding Objective Objective Current Medications Medications (Trade) Dose Ordered Sig/Javier Route PRN Reason Start Time Stop Time Status Last Admin Dose Admin Amlodipine Besylate (Norvasc) 5 mg BID GT 10/08/19 18:00 10/25/19 08:59 10/11/19 17:40 Azathioprine (Imuran) 50 mg DAILY ORAL 10/05/19 09:00 01/03/20 08:59 10/11/19 09:29 Chlorhexidine Gluconate (Nae-Hex 2%) 1 applic DAILY@1999 TOPIC 09/17/19 20:00 12/16/19 19:59 10/11/19 22:31 Dextrose (Dextrose 50%) 25 ml Q30M PRN IV Hypoglycemia 09/02/19 06:15 12/01/19 06:14 09/04/19 12:11 Dextrose (Dextrose 50%) 50 ml Q30M PRN IV Hypoglycemia 09/02/19 06:15 12/01/19 06:14 Doxazosin Mesylate (Cardura) 2 mg EVERY 12 HOURS GT 10/07/19 09:00 11/06/19 08:59 10/11/19 22:31 Epoetin Thomas (Epoetin Thomas-EPBX(NON ESRD)) 4,000 unit THU-THU-THU SUBQ 10/05/19 21:00 01/03/20 20:59 10/10/19 22:51 Hydralazine HCl (Apresoline) 10 mg Q4H PRN IV BP OVER 160 SYST 10/08/19 10:30 01/06/20 10:29 Hydralazine HCl (Apresoline) 100 mg Q8HR GT 10/10/19 14:00 01/08/20 05:59 10/11/19 22:32 Levothyroxine Sodium (Synthroid) 125 mcg DAILY@0630 ORAL 09/22/19 06:30 10/22/19 06:29 10/11/19 05:42 Losartan Potassium (Cozaar) 100 mg DAILY GT 10/06/19 09:00 11/05/19 08:59 10/11/19 09:26 Pantoprazole (Protonix) 40 mg EVERY 12 HOURS IVP 10/10/19 13:00 11/09/19 12:59 10/11/19 22:31 Piperacillin Sod/ Tazobactam Sod 2.25 gm/Dextrose 55 ml @ 110 mls/hr Q8H IVPB 10/10/19 17:00 10/12/19 17:59 10/12/19 02:12 Prednisone (predniSONE) 25 mg DAILY ORAL 10/10/19 09:00 11/09/19 08:59 10/11/19 09:26 Psyllium Hydrophilic Mucilloid (Metamucil) 1 pkt DAILY ORAL 09/22/19 15:00 10/22/19 14:59 10/11/19 09:29 Last 24 Hour Vital Signs Date Time Temp Pulse Resp B/P (MAP) Pulse Ox O2 Delivery O2 Flow Rate FiO2 10/12/19 05:10 67 18 21 10/12/19 04:00 21 10/12/19 04:00 97.0 66 18 135/83 (100) 98 10/12/19 04:00 Mechanical Ventilator 10/12/19 03:34 66 10/12/19 03:17 64 18 21 10/12/19 01:11 71 19 21 10/12/19 00:00 Mechanical Ventilator 10/12/19 00:00 96.9 68 18 148/69 (95) 99 10/12/19 00:00 21 10/11/19 23:27 71 10/11/19 23:05 66 18 21 10/11/19 22:32 136/70 10/11/19 21:19 73 18 21 10/11/19 20:00 21 10/11/19 20:00 79 10/11/19 20:00 97.0 79 20 136/70 (92) 96 10/11/19 20:00 Mechanical Ventilator 10/11/19 19:11 77 20 21 10/11/19 17:40 74 143/67 10/11/19 17:01 74 18 21 10/11/19 16:00 Mechanical Ventilator 10/11/19 16:00 98.8 80 18 133/59 (83) 100 10/11/19 16:00 21 10/11/19 15:48 78 10/11/19 14:33 84 20 21 10/11/19 14:17 145/65 10/11/19 12:37 72 18 21 10/11/19 12:00 21 10/11/19 12:00 97.7 72 18 143/68 (93) 100 10/11/19 12:00 Mechanical Ventilator 10/11/19 11:35 69 10/11/19 11:01 81 24 21 10/11/19 09:26 83 157/85 10/11/19 09:26 157/85 10/11/19 08:38 75 22 21 10/11/19 08:37 100 10/11/19 08:00 99.5 74 18 147/90 (109) 99 10/11/19 08:00 Mechanical Ventilator 10/11/19 08:00 21 10/11/19 07:35 81 10/11/19 07:00 83 19 21 10/11/19 05:44 126/71 10/11/19 05:09 74 18 21 10/11/19 04:10 Mechanical Ventilator 10/11/19 04:10 21 10/11/19 04:00 98.3 71 18 126/67 (86) 100 10/11/19 04:00 71 10/11/19 03:31 80 18 21 10/11/19 01:26 79 18 21 10/11/19 00:07 59 10/11/19 00:07 21 10/11/19 00:00 97.1 76 18 112/61 (78) 100 10/11/19 00:00 Mechanical Ventilator 10/10/19 23:41 72 18 21 10/10/19 22:46 140/60 10/10/19 21:14 64 18 21 10/10/19 20:00 97.4 59 18 140/60 (86) 94 10/10/19 20:00 59 10/10/19 19:56 21 10/10/19 19:55 Mechanical Ventilator 10/10/19 19:39 67 20 21 10/10/19 19:06 55 10/10/19 17:32 62 154/74 10/10/19 16:00 21 10/10/19 16:00 97.1 66 16 154/76 (102) 100 10/10/19 16:00 Mechanical Ventilator 10/10/19 16:00 60 10/10/19 15:00 67 21 21 10/10/19 14:03 124/65 10/10/19 12:00 65 10/10/19 12:00 97.0 68 16 124/68 (86) 100 10/10/19 12:00 Mechanical Ventilator 10/10/19 12:00 21 10/10/19 12:00 97.0 68 16 124/68 (86) 100 10/10/19 10:35 68 18 21 10/10/19 09:42 84 140/65 10/10/19 09:40 140/65 10/10/19 08:00 Mechanical Ventilator 10/10/19 08:00 69 10/10/19 08:00 98.2 77 16 144/76 (98) 100 10/10/19 08:00 21 10/10/19 06:55 84 18 21 Intake and Output 10/11/19 10/12/19 19:00 07:00 Intake Total 575 ml 455 ml Output Total 200 ml Balance 375 ml 455 ml IV Total 55 ml 55 ml Tube Feeding 400 ml 350 ml Other 120 ml 50 ml Output Urine Total 200 ml # Bowel Movements 3 Labs Test 4/27/20 03:40 10/10/19 10:30 10/11/19 03:08 10/12/19 03:36 White Blood Count 10.0 K/UL (4.8-10.8) 13.6 K/UL (4.8-10.8) 11.0 K/UL (4.8-10.8) Red Blood Count 2.30 M/UL (4.20-5.40) 2.44 M/UL (4.20-5.40) 3.07 M/UL (4.20-5.40) Hemoglobin 7.1 G/DL (12.0-16.0) 7.5 G/DL (12.0-16.0) 9.7 G/DL (12.0-16.0) Hematocrit 20.3 % (37.0-47.0) 21.5 % (37.0-47.0) 26.5 % (37.0-47.0) Mean Corpuscular Volume 88 FL (80-99) 88 FL (80-99) 86 FL (80-99) Mean Corpuscular Hemoglobin 31.0 PG (27.0-31.0) 30.9 PG (27.0-31.0) 31.6 PG (27.0-31.0) Mean Corpuscular Hemoglobin Concent 35.0 G/DL (32.0-36.0) 35.0 G/DL (32.0-36.0) 36.6 G/DL (32.0-36.0) Red Cell Distribution Width 14.7 % (11.6-14.8) 14.5 % (11.6-14.8) 13.8 % (11.6-14.8) Platelet Count 180 K/UL (150-450) 161 K/UL (150-450) 182 K/UL (150-450) Mean Platelet Volume 5.2 FL (6.5-10.1) 5.0 FL (6.5-10.1) 6.2 FL (6.5-10.1) Neutrophils (%) (Auto) % (45.0-75.0) % (45.0-75.0) 72.5 % (45.0-75.0) Lymphocytes (%) (Auto) % (20.0-45.0) % (20.0-45.0) 24.2 % (20.0-45.0) Monocytes (%) (Auto) % (1.0-10.0) % (1.0-10.0) 3.1 % (1.0-10.0) Eosinophils (%) (Auto) % (0.0-3.0) % (0.0-3.0) 0.1 % (0.0-3.0) Basophils (%) (Auto) % (0.0-2.0) % (0.0-2.0) 0.1 % (0.0-2.0) Differential Total Cells Counted 100 100 Neutrophils % (Manual) 61 % (45-75) 60 % (45-75) Lymphocytes % (Manual) 32 % (20-45) 34 % (20-45) Monocytes % (Manual) 7 % (1-10) 6 % (1-10) Eosinophils % (Manual) 0 % (0-3) 0 % (0-3) Basophils % (Manual) 0 % (0-2) 0 % (0-2) Band Neutrophils 0 % (0-8) 0 % (0-8) Platelet Estimate Adequate Adequate Platelet Morphology Normal Normal Hypochromasia 1+ 1+ Anisocytosis 1+ 1+ Sodium Level 137 MMOL/L (136-145) 139 MMOL/L (136-145) Potassium Level 3.2 MMOL/L (3.5-5.1) 3.7 MMOL/L (3.5-5.1) Chloride Level 100 MMOL/L (98-107) 101 MMOL/L (98-107) Carbon Dioxide Level 24 MMOL/L (21-32) 24 MMOL/L (21-32) Anion Gap 13 mmol/L (5-15) 14 mmol/L (5-15) Blood Urea Nitrogen 104 mg/dL (7-18) 112 mg/dL (7-18) Creatinine 2.8 MG/DL (0.55-1.30) 3.0 MG/DL (0.55-1.30) Estimat Glomerular Filtration Rate 16.3 mL/min (>60) 15.1 mL/min (>60) Glucose Level 155 MG/DL (74-106) 225 MG/DL (74-106) Calcium Level 8.4 MG/DL (8.5-10.1) 8.0 MG/DL (8.5-10.1) Phosphorus Level 2.1 MG/DL (2.5-4.9) 4.4 MG/DL (2.5-4.9) Magnesium Level 2.4 MG/DL (1.8-2.4) 2.4 MG/DL (1.8-2.4) Total Bilirubin 0.4 MG/DL (0.2-1.0) 0.4 MG/DL (0.2-1.0) Gamma Glutamyl Transpeptidase 59 U/L (5-85) Aspartate Amino Transf (AST/SGOT) 57 U/L (15-37) 72 U/L (15-37) Alanine Aminotransferase (ALT/SGPT) 51 U/L (12-78) 110 U/L (12-78) Alkaline Phosphatase 285 U/L (46-116) 322 U/L (46-116) C-Reactive Protein, Quantitative 4.8 mg/dL (0.00-0.90) Pro-B-Type Natriuretic Peptide > 16045 pg/mL (0-125) Total Protein 6.2 G/DL (6.4-8.2) 6.4 G/DL (6.4-8.2) Albumin 1.9 G/DL (3.4-5.0) 1.9 G/DL (3.4-5.0) Globulin 4.3 g/dL 4.5 g/dL Albumin/Globulin Ratio 0.4 (1.0-2.7) 0.4 (1.0-2.7) Height (Feet): 5 Height (Inches): 4.00 Weight (Pounds): 112 Objective Physical Exam vitals: reviewed gen: nad, confused+ pulm: on trach+ / vent, decreased breath sounds left, right perm+ cv: rrr, no gmr abd: sfot, nt, nd ++ gt ext: no cce + right Gio Rosa MD Oct 12, 2019 06:05
[2019-10-12 06:09] LABS: ALANINE AMINOTRANSFERASE 95 U/L (12-78); ALBUMIN 1.8 G/DL (3.4-5.0); ALBUMIN/GLOBULIN RATIO 0.4 (1.0-2.7); ALKALINE PHOSPHATASE 296 U/L (46-116); ANION GAP 14 mmol/L (5-15); ASPARTATE AMINO TRANSFERASE 64 U/L (15-37); BILIRUBIN,TOTAL 0.4 MG/DL (0.2-1.0); BLOOD UREA NITROGEN 121 mg/dL (7-18); CALCIUM 7.9 MG/DL (8.5-10.1); CARBON DIOXIDE 24 MMOL/L (21-32); CHLORIDE 100 MMOL/L (98-107); CREATINE KINASE 27 U/L (26-308); CREATININE 3.2 MG/DL (0.55-1.30); PHOSPHORUS 4.4 MG/DL (2.5-4.9); POTASSIUM 3.6 MMOL/L (3.5-5.1); SODIUM 138 MMOL/L (136-145)
[2019-10-12] MEDS: Levothyroxine 125mcg tab ORAL SCH (06:14)
[2019-10-12] MEDS: HydrALAZINE 50mg tab GT SCH ×2 (06:14→14:00)
[2019-10-12 08:00] VITALS: BP 142/67
[2019-10-12] MEDS: Metamucil Pkt ORAL SCH (09:00)
[2019-10-12] MEDS: Doxazosin 1mg Tab GT SCH (09:00)
[2019-10-12] MEDS: azaTHIOprine 50 MG TAB ORAL SCH (09:00)
[2019-10-12] MEDS: Losartan 50mg tab GT SCH (09:00)
[2019-10-12] MEDS: Pantoprazole Inj IVP SCH (09:00)
--- NOTE | 2019-10-12 09:07 | General Progress Note ---
Assessment/Plan Status: stable, not improved, unchanged, deteriorating Assessment/Plan: Assessment - Severe ulcerative esophagitis - mild elevation in LFT, Hepatitis B/C negative --> now sudden rise - ? related to new 1.9 cm mass near GB - ? autoimmune / high ESR - abnormal liver on CT - ? chronic disease / fibrosis - Resp failure - trach - s/p recent Chest tube and removal - Renal failure - aspiration risk --> s/p PEG - anemia - bradycardia - Poor prognosis Recommendations - CT reviewed - check autoimmune markers - pending>>> neg JOLIE - check AFP - GT care - water flushes - elevate HOB - monitor H&H - ppi patient poor candidate for GI procedures - vent -patient not a candidate for liver biopsy -given elevated SM Ab and igg, neg hepatitis panel >>>prednisone 20 mg and will cont to rosio off - imuran 50 mg -fu LFTS -drop in H&H without obvious bleeding>>> repeat cbc Subjective ROS Limited/Unobtainable: No Allergies: Coded Allergies: VANCOMYCIN (Unverified Allergy, Unknown, 08/02/19) Subjective s/p blood transfusion Objective Last 24 Hour Vital Signs Date Time Temp Pulse Resp B/P (MAP) Pulse Ox O2 Delivery O2 Flow Rate FiO2 10/12/19 08:00 21 10/12/19 08:00 Mechanical Ventilator 10/12/19 06:14 135/83 10/12/19 05:10 67 18 21 10/12/19 04:00 21 10/12/19 04:00 97.0 66 18 135/83 (100) 98 10/12/19 04:00 Mechanical Ventilator 10/12/19 03:34 66 10/12/19 03:17 64 18 21 10/12/19 01:11 71 19 21 10/12/19 00:00 Mechanical Ventilator 10/12/19 00:00 96.9 68 18 148/69 (95) 99 10/12/19 00:00 21 10/11/19 23:27 71 10/11/19 23:05 66 18 21 10/11/19 22:32 136/70 10/11/19 21:19 73 18 21 10/11/19 20:00 21 10/11/19 20:00 79 10/11/19 20:00 97.0 79 20 136/70 (92) 96 10/11/19 20:00 Mechanical Ventilator 10/11/19 19:11 77 20 21 10/11/19 17:40 74 143/67 10/11/19 17:01 74 18 21 10/11/19 16:00 Mechanical Ventilator 10/11/19 16:00 98.8 80 18 133/59 (83) 100 10/11/19 16:00 21 10/11/19 15:48 78 10/11/19 14:33 84 20 21 10/11/19 14:17 145/65 10/11/19 12:37 72 18 21 10/11/19 12:00 21 10/11/19 12:00 97.7 72 18 143/68 (93) 100 10/11/19 12:00 Mechanical Ventilator 10/11/19 11:35 69 10/11/19 11:01 81 24 21 10/11/19 09:26 83 157/85 10/11/19 09:26 157/85 Intake and Output 10/11/19 10/12/19 19:00 07:00 Intake Total 575 ml 490 ml Output Total 200 ml 150 ml Balance 375 ml 340 ml IV Total 55 ml 55 ml Tube Feeding 400 ml 385 ml Other 120 ml 50 ml Output Urine Total 200 ml 150 ml # Bowel Movements 3 1 Laboratory Tests 10/12/19 03:36: White Blood Count 11.4H, Red Blood Count 2.79L, Hemoglobin 8.7L, Hematocrit 24.2L, Mean Corpuscular Volume 87, Mean Corpuscular Hemoglobin 31.4H, Mean Corpuscular Hemoglobin Concent 36.1H, Red Cell Distribution Width 13.7, Platelet Count 181, Mean Platelet Volume 5.5L, Neutrophils (%) (Auto) 74.1, Lymphocytes (%) (Auto) 22.9, Monocytes (%) (Auto) 2.6, Eosinophils (%) (Auto) 0.1, Basophils (%) (Auto) 0.2, Sodium Level 138, Potassium Level 3.6, Chloride Level 100, Carbon Dioxide Level 24, Anion Gap 14, Blood Urea Nitrogen 121H, Creatinine 3.2H, Estimat Glomerular Filtration Rate 13.9, Glucose Level 178H, Uric Acid 5.5, Calcium Level 7.9L, Phosphorus Level 4.4, Magnesium Level 2.4, Total Bilirubin 0.4, Aspartate Amino Transf (AST/SGOT) 64H, Alanine Aminotransferase (ALT/SGPT) 95H, Alkaline Phosphatase 296H, Total Creatine Kinase 27, C-Reactive Protein, Quantitative 3.9H, Pro-B-Type Natriuretic Peptide 88279R, Total Protein 6.2L, Albumin 1.8L, Globulin 4.4, Albumin/ Globulin Ratio 0.4L Height (Feet): 5 Height (Inches): 4.00 Weight (Pounds): 112 General Appearance: no apparent distress EENT: normal ENT inspection Neck: supple Cardiovascular: normal rate Respiratory/Chest: decreased breath sounds Abdomen: normal bowel sounds, non tender, soft Extremities: non-tender Kenny Rudolph MD Oct 12, 2019 09:07
--- NOTE | 2019-10-12 09:20 | General Progress Note ---
Assessment/Plan Problem List: (1) Failure to thrive (0-17) ICD Codes: R62.51 - Failure to thrive (0-17) SNOMED: 324219675 (2) Hypertensive kidney disease ICD Codes: I12.9 - Hypertensive chronic kidney disease with stage 1 through stage 4 chronic kidney disease, or unspecified chronic kidney disease SNOMED: 44581952 (3) Pneumonia ICD Codes: J18.9 - Pneumonia, unspecified organism SNOMED: 782238415 Qualifiers: Qualified Codes: J18.9 - Pneumonia, unspecified organism (4) ESRD (end stage renal disease) ICD Codes: N18.6 - End stage renal disease SNOMED: 98688519 (5) Septic arthritis ICD Codes: M00.9 - Pyogenic arthritis, unspecified SNOMED: 070136639 (6) Thrombocytopenia ICD Codes: D69.6 - Thrombocytopenia, unspecified SNOMED: 153669089 (7) Hypotension ICD Codes: I95.9 - Hypotension, unspecified SNOMED: 86393096 Qualifiers: Qualified Codes: I95.3 - Hypotension of hemodialysis (8) Malnutrition ICD Codes: E46 - Unspecified protein-calorie malnutrition SNOMED: 23929886 Status: stable, not improved, unchanged, deteriorating Assessment/Plan: Continue vent support. Wean as able. Suctioning and pulmonary toilet. Continue G-tube feedings. Monitor residuals bp rx Hemodialysis with ultrafiltration per nephrology. Turn every 2 hours and good skin care. monitor labs/lfts steroids/imuran per GI iv abx per id monitor h/h transfuse prn monitor cxr Discharge planning in progress Subjective ROS Limited/Unobtainable: No Constitutional: Reports: malaise, weakness HEENT: Reports: no symptoms Cardiovascular: Reports: no symptoms Respiratory: Reports: cough, shortness of breath, sputum Gastrointestinal/Abdominal: Reports: difficulty swallowing Genitourinary: Reports: no symptoms Neurologic/Psychiatric: Reports: pre-existing deficit Endocrine: Reports: no symptoms Hematologic/Lymphatic: Reports: anemia Allergies: Coded Allergies: VANCOMYCIN (Unverified Allergy, Unknown, 08/02/19) All Systems: reviewed and negative except above Subjective No overnight events. Remained stable on the ventilator. Awake and alert. Tolerating G-tube feeds. No fevers or chills noted. LFTs stable. h/h stable. no bleeding. On antibiotics for pneumonia. On steroids and Imuran for autoimmune hepatitis. +itching Objective Last 24 Hour Vital Signs Date Time Temp Pulse Resp B/P (MAP) Pulse Ox O2 Delivery O2 Flow Rate FiO2 10/12/19 08:00 95.4 72 18 142/67 (92) 100 10/12/19 08:00 21 10/12/19 08:00 Mechanical Ventilator 10/12/19 06:14 135/83 10/12/19 05:10 67 18 21 10/12/19 04:00 21 10/12/19 04:00 97.0 66 18 135/83 (100) 98 10/12/19 04:00 Mechanical Ventilator 10/12/19 03:34 66 10/12/19 03:17 64 18 21 10/12/19 01:11 71 19 21 10/12/19 00:00 Mechanical Ventilator 10/12/19 00:00 96.9 68 18 148/69 (95) 99 10/12/19 00:00 21 10/11/19 23:27 71 10/11/19 23:05 66 18 21 10/11/19 22:32 136/70 10/11/19 21:19 73 18 21 10/11/19 20:00 21 10/11/19 20:00 79 10/11/19 20:00 97.0 79 20 136/70 (92) 96 10/11/19 20:00 Mechanical Ventilator 10/11/19 19:11 77 20 21 10/11/19 17:40 74 143/67 10/11/19 17:01 74 18 21 10/11/19 16:00 Mechanical Ventilator 10/11/19 16:00 98.8 80 18 133/59 (83) 100 10/11/19 16:00 21 10/11/19 15:48 78 10/11/19 14:33 84 20 21 10/11/19 14:17 145/65 10/11/19 12:37 72 18 21 10/11/19 12:00 21 10/11/19 12:00 97.7 72 18 143/68 (93) 100 10/11/19 12:00 Mechanical Ventilator 10/11/19 11:35 69 10/11/19 11:01 81 24 21 10/11/19 09:26 83 157/85 10/11/19 09:26 157/85 Intake and Output 10/11/19 10/12/19 19:00 07:00 Intake Total 575 ml 490 ml Output Total 200 ml 150 ml Balance 375 ml 340 ml IV Total 55 ml 55 ml Tube Feeding 400 ml 385 ml Other 120 ml 50 ml Output Urine Total 200 ml 150 ml # Bowel Movements 3 1 Laboratory Tests 10/12/19 03:36: White Blood Count 11.4H, Red Blood Count 2.79L, Hemoglobin 8.7L, Hematocrit 24.2L, Mean Corpuscular Volume 87, Mean Corpuscular Hemoglobin 31.4H, Mean Corpuscular Hemoglobin Concent 36.1H, Red Cell Distribution Width 13.7, Platelet Count 181, Mean Platelet Volume 5.5L, Neutrophils (%) (Auto) 74.1, Lymphocytes (%) (Auto) 22.9, Monocytes (%) (Auto) 2.6, Eosinophils (%) (Auto) 0.1, Basophils (%) (Auto) 0.2, Sodium Level 138, Potassium Level 3.6, Chloride Level 100, Carbon Dioxide Level 24, Anion Gap 14, Blood Urea Nitrogen 121H, Creatinine 3.2H, Estimat Glomerular Filtration Rate 13.9, Glucose Level 178H, Uric Acid 5.5, Calcium Level 7.9L, Phosphorus Level 4.4, Magnesium Level 2.4, Total Bilirubin 0.4, Aspartate Amino Transf (AST/SGOT) 64H, Alanine Aminotransferase (ALT/SGPT) 95H, Alkaline Phosphatase 296H, Total Creatine Kinase 27, C-Reactive Protein, Quantitative 3.9H, Pro-B-Type Natriuretic Peptide 25191D, Total Protein 6.2L, Albumin 1.8L, Globulin 4.4, Albumin/ Globulin Ratio 0.4L Height (Feet): 5 Height (Inches): 4.00 Weight (Pounds): 112 Objective General Appearance: WD/WN, awake. looks around. no distress. thin and frail Neck: supple +trach Cardiovascular: normal rate Respiratory/Chest: rhonchi - bilaterally Abdomen: normal bowel sounds, non tender, soft, no organomegaly Edema: no edema noted Arm (L), no edema noted Arm (R), no edema noted Leg (L), no edema noted Leg (R), no edema noted Pedal (L), no edema noted Pedal (R), no edema noted Generalized Neurologic: disoriented, aphasia Skin: +excoriations Uomoto,Ante M. MD Oct 12, 2019 09:20
--- NOTE | 2019-10-12 10:14 | Infectious Diseases Prog Note ---
"Assessment/Plan Assessment/Plan antibiotics : zosyn 4..20 - A 1. klebsiella | enterobacter | proteus pneumonia COVID 19 negative 2. right shoulder septic arthritis with staph aureus s/p rx 3. pleural effusion 4. thrombocytopenia resolved 7. diabetes mellitus 8. hypertension 9. respiratory failure 9. leucocytosis resolved 10. s/p scabies therapy with elemite 4..20 P 1. d/c zosyn 2. observe off antibiotics Subjective ROS Limited/Unobtainable: Yes Allergies: Coded Allergies: VANCOMYCIN (Unverified Allergy, Unknown, 08/02/19) Objective Vital Signs Last 24 Hour Vital Signs Date Time Temp Pulse Resp B/P (MAP) Pulse Ox O2 Delivery O2 Flow Rate FiO2 10/12/19 08:00 95.4 72 18 142/67 (92) 100 10/12/19 08:00 21 10/12/19 08:00 Mechanical Ventilator 10/12/19 07:32 64 10/12/19 06:14 135/83 10/12/19 05:10 67 18 21 10/12/19 04:00 21 10/12/19 04:00 97.0 66 18 135/83 (100) 98 10/12/19 04:00 Mechanical Ventilator 10/12/19 03:34 66 10/12/19 03:17 64 18 21 10/12/19 01:11 71 19 21 10/12/19 00:00 Mechanical Ventilator 10/12/19 00:00 96.9 68 18 148/69 (95) 99 10/12/19 00:00 21 10/11/19 23:27 71 10/11/19 23:05 66 18 21 10/11/19 22:32 136/70 10/11/19 21:19 73 18 21 10/11/19 20:00 21 10/11/19 20:00 79 10/11/19 20:00 97.0 79 20 136/70 (92) 96 10/11/19 20:00 Mechanical Ventilator 10/11/19 19:11 77 20 21 10/11/19 17:40 74 143/67 10/11/19 17:01 74 18 21 10/11/19 16:00 Mechanical Ventilator 10/11/19 16:00 98.8 80 18 133/59 (83) 100 10/11/19 16:00 21 10/11/19 15:48 78 10/11/19 14:33 84 20 21 10/11/19 14:17 145/65 10/11/19 12:37 72 18 21 10/11/19 12:00 21 10/11/19 12:00 97.7 72 18 143/68 (93) 100 10/11/19 12:00 Mechanical Ventilator 10/11/19 11:35 69 10/11/19 11:01 81 24 21 Height (Feet): 5 Height (Inches): 4.00 Weight (Pounds): 112 HEENT: status post trach Respiratory/Chest: lungs clear Cardiovascular: normal rate, regular rhythm, no gallop/murmur Abdomen: soft, non tender, other - GT Extremities: no edema, other - right subclavian and right groin catheter Laboratory Tests Test 10/12/19 03:36 White Blood Count 11.4 K/UL (4.8-10.8) H Red Blood Count 2.79 M/UL (4.20-5.40) L Hemoglobin 8.7 G/DL (12.0-16.0) L Hematocrit 24.2 % (37.0-47.0) L Mean Corpuscular Volume 87 FL (80-99) Mean Corpuscular Hemoglobin 31.4 PG (27.0-31.0) H Mean Corpuscular Hemoglobin Concent 36.1 G/DL (32.0-36.0) H Red Cell Distribution Width 13.7 % (11.6-14.8) Platelet Count 181 K/UL (150-450) Mean Platelet Volume 5.5 FL (6.5-10.1) L Neutrophils (%) (Auto) 74.1 % (45.0-75.0) Lymphocytes (%) (Auto) 22.9 % (20.0-45.0) Monocytes (%) (Auto) 2.6 % (1.0-10.0) Eosinophils (%) (Auto) 0.1 % (0.0-3.0) Basophils (%) (Auto) 0.2 % (0.0-2.0) Sodium Level 138 MMOL/L (136-145) Potassium Level 3.6 MMOL/L (3.5-5.1) Chloride Level 100 MMOL/L (98-107) Carbon Dioxide Level 24 MMOL/L (21-32) Anion Gap 14 mmol/L (5-15) Blood Urea Nitrogen 121 mg/dL (7-18) H Creatinine 3.2 MG/DL (0.55-1.30) H Estimat Glomerular Filtration Rate 13.9 mL/min (>60) Glucose Level 178 MG/DL (74-106) H Uric Acid 5.5 MG/DL (2.6-7.2) Calcium Level 7.9 MG/DL (8.5-10.1) L Phosphorus Level 4.4 MG/DL (2.5-4.9) Magnesium Level 2.4 MG/DL (1.8-2.4) Total Bilirubin 0.4 MG/DL (0.2-1.0) Aspartate Amino Transf (AST/SGOT) 64 U/L (15-37) H Alanine Aminotransferase (ALT/SGPT) 95 U/L (12-78) H Alkaline Phosphatase 296 U/L (46-116) H Total Creatine Kinase 27 U/L (26-308) C-Reactive Protein, Quantitative 3.9 mg/dL (0.00-0.90) H Pro-B-Type Natriuretic Peptide 37745 pg/mL (0-125) H Total Protein 6.2 G/DL (6.4-8.2) L Albumin 1.8 G/DL (3.4-5.0) L Globulin 4.4 g/dL Albumin/Globulin Ratio 0.4 (1.0-2.7) L Current Medications Medications (Trade) Dose Ordered Sig/Javier Route PRN Reason Start Time Stop Time Status Last Admin Dose Admin Amlodipine Besylate (Norvasc) 5 mg BID GT 10/08/19 18:00 10/25/19 08:59 10/11/19 17:40 Azathioprine (Imuran) 50 mg DAILY ORAL 10/05/19 09:00 01/03/20 08:59 10/11/19 09:29 Chlorhexidine Gluconate (Nae-Hex 2%) 1 applic DAILY@1999 TOPIC 09/17/19 20:00 12/16/19 19:59 10/11/19 22:31 Dextrose (Dextrose 50%) 25 ml Q30M PRN IV Hypoglycemia 09/02/19 06:15 12/01/19 06:14 09/04/19 12:11 Dextrose (Dextrose 50%) 50 ml Q30M PRN IV Hypoglycemia 09/02/19 06:15 12/01/19 06:14 Doxazosin Mesylate (Cardura) 2 mg EVERY 12 HOURS GT 10/07/19 09:00 11/06/19 08:59 10/11/19 22:31 Epoetin Thomas (Epoetin Thomas-EPBX(NON ESRD)) 4,000 unit THU-THU-THU SUBQ 10/05/19 21:00 01/03/20 20:59 10/10/19 22:51 Hydralazine HCl (Apresoline) 10 mg Q4H PRN IV BP OVER 160 SYST 10/08/19 10:30 01/06/20 10:29 Hydralazine HCl (Apresoline) 100 mg Q8HR GT 10/10/19 14:00 01/08/20 05:59 10/12/19 06:14 Levothyroxine Sodium (Synthroid) 125 mcg DAILY@0630 ORAL 09/22/19 06:30 10/22/19 06:29 10/12/19 06:14 Losartan Potassium (Cozaar) 100 mg DAILY GT 10/06/19 09:00 11/05/19 08:59 10/11/19 09:26 Pantoprazole (Protonix) 40 mg EVERY 12 HOURS IVP 10/10/19 13:00 11/09/19 12:59 10/11/19 22:31 Piperacillin Sod/ Tazobactam Sod 2.25 gm/Dextrose 55 ml @ 110 mls/hr Q8H IVPB 10/10/19 17:00 10/12/19 17:59 10/12/19 02:12 Prednisone (predniSONE) 20 mg DAILY ORAL 10/13/19 09:00 11/12/19 08:59 Psyllium Hydrophilic Mucilloid (Metamucil) 1 pkt DAILY ORAL 09/22/19 15:00 10/22/19 14:59 10/11/19 09:29 Melissa Solares MD Oct 12, 2019 10:14"
--- NOTE | 2019-10-12 10:26 | Critical Care Progress Note ---
Assessment/Plan Assessment/Plan respiratory failure hypoxemia chronic renal failure toxic met encephalopathy severe protein calorie malnutrition cachexia left lung whiteout/collapse, anemia pulmonary edema + pleural effusion s/p tap anasarca s/p CT placement and removal s/p trach hypernatremia leukocytosis ulcerative esophagitis PLAN trach care as is monitor imaging care noted and reviewed monitor for fluid retention and effusions and repeat tap prn prognosis for recovery poor renal follow up and dialysis prognosis poor overall for change elevated head and monitor ROM watch fluid status and keep negative nutrition and monitor residuals off load as able and monitor skin exam ROM as able and monitor contractures prognosis poor for recovery difficult to optimize further impression, plan, and exam edited and reviewed in detail care discussed with cephalometric analyst - Subjective Interval Events: overall same not much improvement noted on vent ROS Limited/Unobtainable: Yes Condition: unchanged EKG Rhythm: Sinus Rhythm Residuals: minimal Tube Feeding Tolerated: yes I&O: Intake and Output 10/11/19 10/12/19 19:00 07:00 Intake Total 575 ml 490 ml Output Total 200 ml 150 ml Balance 375 ml 340 ml IV Total 55 ml 55 ml Tube Feeding 400 ml 385 ml Other 120 ml 50 ml Output Urine Total 200 ml 150 ml # Bowel Movements 3 1 Critical Care - Objective ET-Tube: 7.0 ET Position: 19 Last 24 Hour Vital Signs Date Time Temp Pulse Resp B/P (MAP) Pulse Ox O2 Delivery O2 Flow Rate FiO2 10/12/19 08:00 95.4 72 18 142/67 (92) 100 10/12/19 08:00 21 10/12/19 08:00 Mechanical Ventilator 10/12/19 07:32 64 10/12/19 06:14 135/83 10/12/19 05:10 67 18 21 10/12/19 04:00 21 10/12/19 04:00 97.0 66 18 135/83 (100) 98 10/12/19 04:00 Mechanical Ventilator 10/12/19 03:34 66 10/12/19 03:17 64 18 21 10/12/19 01:11 71 19 21 10/12/19 00:00 Mechanical Ventilator 10/12/19 00:00 96.9 68 18 148/69 (95) 99 10/12/19 00:00 21 10/11/19 23:27 71 10/11/19 23:05 66 18 21 10/11/19 22:32 136/70 10/11/19 21:19 73 18 21 10/11/19 20:00 21 10/11/19 20:00 79 10/11/19 20:00 97.0 79 20 136/70 (92) 96 10/11/19 20:00 Mechanical Ventilator 10/11/19 19:11 77 20 21 10/11/19 17:40 74 143/67 10/11/19 17:01 74 18 21 10/11/19 16:00 Mechanical Ventilator 10/11/19 16:00 98.8 80 18 133/59 (83) 100 10/11/19 16:00 21 10/11/19 15:48 78 10/11/19 14:33 84 20 21 10/11/19 14:17 145/65 10/11/19 12:37 72 18 21 10/11/19 12:00 21 10/11/19 12:00 97.7 72 18 143/68 (93) 100 10/11/19 12:00 Mechanical Ventilator 10/11/19 11:35 69 10/11/19 11:01 81 24 21 Labs: Laboratory Tests Test 10/12/19 03:36 White Blood Count 11.4 K/UL (4.8-10.8) H Red Blood Count 2.79 M/UL (4.20-5.40) L Hemoglobin 8.7 G/DL (12.0-16.0) L Hematocrit 24.2 % (37.0-47.0) L Mean Corpuscular Volume 87 FL (80-99) Mean Corpuscular Hemoglobin 31.4 PG (27.0-31.0) H Mean Corpuscular Hemoglobin Concent 36.1 G/DL (32.0-36.0) H Red Cell Distribution Width 13.7 % (11.6-14.8) Platelet Count 181 K/UL (150-450) Mean Platelet Volume 5.5 FL (6.5-10.1) L Neutrophils (%) (Auto) 74.1 % (45.0-75.0) Lymphocytes (%) (Auto) 22.9 % (20.0-45.0) Monocytes (%) (Auto) 2.6 % (1.0-10.0) Eosinophils (%) (Auto) 0.1 % (0.0-3.0) Basophils (%) (Auto) 0.2 % (0.0-2.0) Sodium Level 138 MMOL/L (136-145) Potassium Level 3.6 MMOL/L (3.5-5.1) Chloride Level 100 MMOL/L (98-107) Carbon Dioxide Level 24 MMOL/L (21-32) Anion Gap 14 mmol/L (5-15) Blood Urea Nitrogen 121 mg/dL (7-18) H Creatinine 3.2 MG/DL (0.55-1.30) H Estimat Glomerular Filtration Rate 13.9 mL/min (>60) Glucose Level 178 MG/DL (74-106) H Uric Acid 5.5 MG/DL (2.6-7.2) Calcium Level 7.9 MG/DL (8.5-10.1) L Phosphorus Level 4.4 MG/DL (2.5-4.9) Magnesium Level 2.4 MG/DL (1.8-2.4) Total Bilirubin 0.4 MG/DL (0.2-1.0) Aspartate Amino Transf (AST/SGOT) 64 U/L (15-37) H Alanine Aminotransferase (ALT/SGPT) 95 U/L (12-78) H Alkaline Phosphatase 296 U/L (46-116) H Total Creatine Kinase 27 U/L (26-308) C-Reactive Protein, Quantitative 3.9 mg/dL (0.00-0.90) H Pro-B-Type Natriuretic Peptide 23394 pg/mL (0-125) H Total Protein 6.2 G/DL (6.4-8.2) L Albumin 1.8 G/DL (3.4-5.0) L Globulin 4.4 g/dL Albumin/Globulin Ratio 0.4 (1.0-2.7) L Objective: WDWN NAD trach in place reduced breath sounds without rhonchi or wheeze [id number] without MRG NABS nontender no HSM no CCE contractures feeding tube in place no distention reduced LOC and weak nonfocal cachectic reviewed and edited Accucheck: 89 Malcolm Cruz MD Oct 12, 2019 10:26
[2019-10-12 12:00] VITALS: BP 159/81
--- NOTE | 2019-10-12 13:43 | Surgery Progress Note ---
Surgery Progress Note Subjective Procedure Performed 1. tracheostomy 2 removal of left tube thoracostomy Additional Comments doing well labs stable comfortable is combing her hair herself today Objective Last 24 Hour Vital Signs Date Time Temp Pulse Resp B/P (MAP) Pulse Ox O2 Delivery O2 Flow Rate FiO2 10/12/19 13:36 21 10/12/19 13:35 21 10/12/19 12:00 Mechanical Ventilator 10/12/19 12:00 96.4 72 18 159/81 (107) 97 10/12/19 11:35 71 10/12/19 11:30 21 10/12/19 08:00 95.4 72 18 142/67 (92) 100 10/12/19 08:00 21 10/12/19 08:00 Mechanical Ventilator 10/12/19 07:32 64 10/12/19 06:14 135/83 10/12/19 05:10 67 18 21 10/12/19 04:00 21 10/12/19 04:00 97.0 66 18 135/83 (100) 98 10/12/19 04:00 Mechanical Ventilator 10/12/19 03:34 66 10/12/19 03:17 64 18 21 10/12/19 01:11 71 19 21 10/12/19 00:00 Mechanical Ventilator 10/12/19 00:00 96.9 68 18 148/69 (95) 99 10/12/19 00:00 21 10/11/19 23:27 71 10/11/19 23:05 66 18 21 10/11/19 22:32 136/70 10/11/19 21:19 73 18 21 10/11/19 20:00 21 10/11/19 20:00 79 10/11/19 20:00 97.0 79 20 136/70 (92) 96 10/11/19 20:00 Mechanical Ventilator 10/11/19 19:11 77 20 21 10/11/19 17:40 74 143/67 10/11/19 17:01 74 18 21 10/11/19 16:00 Mechanical Ventilator 10/11/19 16:00 98.8 80 18 133/59 (83) 100 10/11/19 16:00 21 10/11/19 15:48 78 10/11/19 14:33 84 20 21 10/11/19 14:17 145/65 I&O Intake and Output 10/11/19 10/12/19 19:00 07:00 Intake Total 575 ml 490 ml Output Total 200 ml 150 ml Balance 375 ml 340 ml IV Total 55 ml 55 ml Tube Feeding 400 ml 385 ml Other 120 ml 50 ml Output Urine Total 200 ml 150 ml # Bowel Movements 3 1 Dressing: dry Wound: clean Cardiovascular: RSR Respiratory: clear Abdomen: soft, non-tender, present bowel sounds Extremities: no edema, no tenderness, no cyanosis Laboratory Tests Test 10/12/19 03:36 White Blood Count 11.4 K/UL (4.8-10.8) H Red Blood Count 2.79 M/UL (4.20-5.40) L Hemoglobin 8.7 G/DL (12.0-16.0) L Hematocrit 24.2 % (37.0-47.0) L Mean Corpuscular Volume 87 FL (80-99) Mean Corpuscular Hemoglobin 31.4 PG (27.0-31.0) H Mean Corpuscular Hemoglobin Concent 36.1 G/DL (32.0-36.0) H Red Cell Distribution Width 13.7 % (11.6-14.8) Platelet Count 181 K/UL (150-450) Mean Platelet Volume 5.5 FL (6.5-10.1) L Neutrophils (%) (Auto) 74.1 % (45.0-75.0) Lymphocytes (%) (Auto) 22.9 % (20.0-45.0) Monocytes (%) (Auto) 2.6 % (1.0-10.0) Eosinophils (%) (Auto) 0.1 % (0.0-3.0) Basophils (%) (Auto) 0.2 % (0.0-2.0) Sodium Level 138 MMOL/L (136-145) Potassium Level 3.6 MMOL/L (3.5-5.1) Chloride Level 100 MMOL/L (98-107) Carbon Dioxide Level 24 MMOL/L (21-32) Anion Gap 14 mmol/L (5-15) Blood Urea Nitrogen 121 mg/dL (7-18) H Creatinine 3.2 MG/DL (0.55-1.30) H Estimat Glomerular Filtration Rate 13.9 mL/min (>60) Glucose Level 178 MG/DL (74-106) H Uric Acid 5.5 MG/DL (2.6-7.2) Calcium Level 7.9 MG/DL (8.5-10.1) L Phosphorus Level 4.4 MG/DL (2.5-4.9) Magnesium Level 2.4 MG/DL (1.8-2.4) Total Bilirubin 0.4 MG/DL (0.2-1.0) Aspartate Amino Transf (AST/SGOT) 64 U/L (15-37) H Alanine Aminotransferase (ALT/SGPT) 95 U/L (12-78) H Alkaline Phosphatase 296 U/L (46-116) H Total Creatine Kinase 27 U/L (26-308) C-Reactive Protein, Quantitative 3.9 mg/dL (0.00-0.90) H Pro-B-Type Natriuretic Peptide 94231 pg/mL (0-125) H Total Protein 6.2 G/DL (6.4-8.2) L Albumin 1.8 G/DL (3.4-5.0) L Globulin 4.4 g/dL Albumin/Globulin Ratio 0.4 (1.0-2.7) L Assessment Post-op Diagnosis same Plan Problems: (1) Malnutrition Assessment & Plan: DAILY ESTIMATED NEEDS: Needs based on ESRD+ HD, underweight, wound/ 39.5kg 35-40 kcals/kg 1854-4653 total kcals 1.25-1.8 g protein/kg 49-71 g total protein 20-22 mL/kg 790-869 total fluid mLs NUTRITION DIAGNOSIS: * Increased kcal and protein needs r/t underweight status, HD needs, wuond healing as evidenced by pt is underweight per guidelines, ESRD, on HD, admitted non-blanching erythema wounds @ BL heels and sacrum * Swallowing difficulty R/T dysphagia as evidenced by SKIN TANNER recommends temporary nonoral feeding at this time, s/p NGT insertion, on NGT feeding-> now s/p self removal, NPO. CURRENT TF:NPO PO DIET RECOMMENDATIONS: WHEN SAFE FOR ORAL DIET -> renal/ texture per SKIN TANNER ENTERAL NUTRITION RECOMMENDATIONS: W/ GI access: Nepro @ 35ml/hr x 22 hrs to provide 770ml, 1386kcal, 62g prot, 560ml free water * W/ GI access, resume TF on Nepro * Initiate Nepro @ 15ml/hr x 6 hrs, advance 10ml q 4-6 hrs as tolerated to goal rate. * Hold 1 hour before and after Synthroid med * HOB over 30 degrees/ water flush per MD. ADDITIONAL RECOMMENDATIONS: 1) Calibrated bed scale wt for accurate CBW -> daily wt monitoring Per HD record: dry wt on 07/30=39.5kg (87lbs) 2) Wound care: (W/ GI access) add Nephorivte x 1 + Balta BID 3) Monitor NPO status: without GI access at this time, s/p pulling out NGT 4) Monitor for hypoglycemia while NPO 5) Monitor for continuity of HD (2) Septic arthritis Assessment & Plan: Pt presented on admission with generalized scaly rash . pt noted to be restless and scratching at skin. Bleeding from oral mucosa noted. Joint deformity noted to R shoulder. Surgical incision approximated with 11 sutures. Erythema but no exudate,or elevation in skin temp at site of incision. Historical incision R hip that is tunneled.Small amt seropurulent exudate noted. Periwound is erythematous,but no elevation in skin temp noted. No odor noted. Non-blanching erythema noted to sacrum. Perianal area is erythematous and excoriated. L heel is boggy with non-blanching erythema. R heel is soft with non-blanching erythema. No evidence of skin breakdown to all other bony prominences. Tx.plan: Cover R shoulder with Drsg and change daily and prn. Cleanse R hip wound with Saline. Apply Therahoney.Apply Cavilon Skin Barrier periwound. Cover with Optifoam drsg. Change every 3 days and prn. Apply Moisture Barrier Paste to perianal area and buttocks. Cover Sacrum with Optifoam drsg. Change every 3 days and prn. Apply Cavilon Skin Barrier to both heels. Cover each heel with Optifoam drsg. Change every 7 days and prn. APM/ELVIA Mattress overlay. Reposition at least every 2hours or as tolerated. Off-load heels with pillow. HD cath necessary HD as renal likely will need intubation s/p trach 19 x 11 x 11 mm hypoechoic area in the liver adjacent to the gallbladder fossa. Although location is typical for area of focal sparing in a fatty liver, there are no findings to indicate fatty liver and this is a new finding since fairly recent previous exam. Therefore the possibility of a process such as small abscess should be considered. Atrophic echogenic kidneys Negative for gallstones or dilated bile ducts sutures removed left chest wall (3) Wound, open, hip or thigh with complication Assessment & Plan: slow healing will need nutritional optimization difficult ng tube peg when stable sutures removed from right shoulder comfortable wean vent may need trach Pt deconditioned. All bony prominences assessed and at present no pressure injuries noted. Incontinence Associated dermatitis perineum,cleft of buttocks and medial/posterior aspects of both upper thighs resolving. Affected areas are less erythematous. Labia majora noted to be swollen. in and removed sutures from L thorax. Wound Tx are effective and continued as ordered. All wound prevention protocols continued as care-planned.Optifoam drsgs maintained to bony prominences. Pt has an APM/ELVIA Mattress overlay on her bed and is positioned with pillows as per tolerance and within protocols. (4) Abscess of right hip (5) possible septic arthritis (6) Renal failure (ARF), acute on chronic Assessment & Plan: cont HD will need tunneled cath placement okay to use fem line for now but will need change soon. line monitored and clean dressings going well tunneled cath okay (7) Pneumonia Assessment & Plan: on vent support not tolerating weaning may need trach - s/p hemothorax likely after thoracentesis Chest CT noted Left chest tube placed With plan for trach chest tube can be considered but overall prognosis is very poor s/p trach left chest tub eout cxr noted and okay downgrade left pleural effusion dressings saturated will need to monitor. may need another chest tube as may not heal well on left side Anasarca, with as mentioned above diffuse edema of the soft tissues, trace ascites, and bilateral pleural effusions No hepatic abnormality to correlate with suspected small pericholecystic lesion in the liver described on recent sonogram. The lesion may be occult on noncontrast CT, may have been artifactual or may have resolved in the interim. Consider repeat sonography in a few days to assess progression No definite acute abdominal process otherwise Improved but still sizable left pleural effusion with minimal residual hemoperitoneum since prior CT scan of 09/01/2019. There is near complete atelectasis of the left lower lobe. There is a small right pleural effusion with atelectatic changes of the right lower lobe and right perihilar dense consolidation. These appear improved since a prior CT of 09/01/2019 Increased crazy paving type opacity within the right middle lobe since previous August [address], may reflect an area of increasing infiltrate, versus focal edema. There is also some dense consolidation of the perihilar right lower lobe which is improved since the previous August 31 CT Right groin temporary dialysis catheter in good position Atrophic kidneys, consistent with known history of chronic renal disease L2 compression fracture deformity, and advanced degenerative changes of the L2- L3 disc. Similar to prior study Marroquin catheter hold on repeat chest tube (8) Liver enzyme elevation Assessment & Plan: likely shock liver improving trend trending down will monitor Camilo James Oct 12, 2019 13:43
[2019-10-12] MEDS ORDERED: Surgicel 4in x 8in TOPIC ONE (14:00)
--- NOTE | 2019-10-12 14:10 | Nephrology Progress Note ---
Assessment/Plan Problem List: (1) Liver enzyme elevation Assessment: Acute (2) ESRD (end stage renal disease) on dialysis (3) Malnutrition (4) Anemia in CKD (chronic kidney disease) (5) Hypotension (6) Thrombocytopenia (7) Sepsis Assessment: klebsiella in blood Assessment -Early sepsis with shock. -Healthcare-associated pneumonia. -Severe protein-calorie malnutrition. -Thrombocytopenia. - End-stage renal disease. - History of hypertension. - Bradycardia. - HypoThyroid Plan Due for dialysis today transfuse for anemia as needed Change Prevacid to Protonix IV Hold phosphate binders Monitor hemoglobin hematocrit on prednisone and Imuran Will adjust blood pressure medications Hemodialysis done October 07 Next hemodialysis October 11 Previously Had 2 sets of blood culture October 04, culture results are negative Chest x-ray suggests new infiltrate: Right perihilar infiltrate, new since prior study of 09/21/2019 Can DC femoral dialysis catheter Patient had a right upper chest tunneled catheter placed October 06 Previously patient white blood cell counts mario, unclear if it is due to steroids or an underlying infectious process Smooth muscle antibody positive, Ig G elevated Liver enzymes elevated but declining Tracheostomy September 07 Last dialysis September 26, next dialysis today October 02 Chest tube on the left side was put in on September 01 was discontinued September 07 Patient transfused 3 units of packed RBCs for low hemoglobin Remains full code Blood pressure fluctuating, will start hydralazine via NG tube for blood pressure Magnesium and potassium supplement intravenously as needed Patient underwent PEG placement August 16 patient remains intubated on ventilator Discussed with RN Aim to wean from ventilator or consider tracheostomy Permacath was removed on August 12 Dialysis 08/11 Transfusion as needed Patient had hematemesis meds IV as possible Surveillance blood cultures tomorrow Plan to put the permacath back in on Thursday if cultures are negative keep BP and BS in check Inflammatory markers per orders Subjective ROS Limited/Unobtainable: Yes Objective Objective Last 24 Hour Vital Signs Date Time Temp Pulse Resp B/P (MAP) Pulse Ox O2 Delivery O2 Flow Rate FiO2 10/12/19 13:40 100 10/12/19 13:36 21 10/12/19 13:35 21 10/12/19 12:00 Mechanical Ventilator 10/12/19 12:00 96.4 72 18 159/81 (107) 97 10/12/19 11:35 71 10/12/19 11:30 21 10/12/19 11:20 65 15 21 10/12/19 08:00 95.4 72 18 142/67 (92) 100 10/12/19 08:00 21 10/12/19 08:00 Mechanical Ventilator 10/12/19 07:32 64 10/12/19 07:02 65 18 21 10/12/19 06:14 135/83 10/12/19 05:10 67 18 21 10/12/19 04:00 21 10/12/19 04:00 97.0 66 18 135/83 (100) 98 10/12/19 04:00 Mechanical Ventilator 10/12/19 03:34 66 10/12/19 03:17 64 18 21 10/12/19 01:11 71 19 21 10/12/19 00:00 Mechanical Ventilator 10/12/19 00:00 96.9 68 18 148/69 (95) 99 10/12/19 00:00 21 10/11/19 23:27 71 10/11/19 23:05 66 18 21 10/11/19 22:32 136/70 10/11/19 21:19 73 18 21 10/11/19 20:00 21 10/11/19 20:00 79 10/11/19 20:00 97.0 79 20 136/70 (92) 96 10/11/19 20:00 Mechanical Ventilator 10/11/19 19:11 77 20 21 10/11/19 17:40 74 143/67 10/11/19 17:01 74 18 21 10/11/19 16:00 Mechanical Ventilator 10/11/19 16:00 98.8 80 18 133/59 (83) 100 10/11/19 16:00 21 10/11/19 15:48 78 10/11/19 14:33 84 20 21 10/11/19 14:17 145/65 Intake and Output 10/11/19 10/12/19 19:00 07:00 Intake Total 575 ml 490 ml Output Total 200 ml 150 ml Balance 375 ml 340 ml IV Total 55 ml 55 ml Tube Feeding 400 ml 385 ml Other 120 ml 50 ml Output Urine Total 200 ml 150 ml # Bowel Movements 3 1 Current Medications Medications (Trade) Dose Ordered Sig/Javier Route PRN Reason Start Time Stop Time Status Last Admin Dose Admin Amlodipine Besylate (Norvasc) 5 mg BID GT 10/08/19 18:00 10/25/19 08:59 10/11/19 17:40 Azathioprine (Imuran) 50 mg DAILY ORAL 10/05/19 09:00 01/03/20 08:59 10/11/19 09:29 Chlorhexidine Gluconate (Nae-Hex 2%) 1 applic DAILY@2000 TOPIC 09/17/19 20:00 12/16/19 19:59 10/11/19 22:31 Dextrose (Dextrose 50%) 25 ml Q30M PRN IV Hypoglycemia 09/02/19 06:15 12/01/19 06:14 09/04/19 12:11 Dextrose (Dextrose 50%) 50 ml Q30M PRN IV Hypoglycemia 09/02/19 06:15 12/01/19 06:14 Doxazosin Mesylate (Cardura) 2 mg EVERY 12 HOURS GT 10/07/19 09:00 11/06/19 08:59 10/11/19 22:31 Epoetin Thomas (Epoetin Thomas-EPBX(NON ESRD)) 4,000 unit SUBQ 10/05/19 21:00 01/03/20 20:59 10/10/19 22:51 Hydralazine HCl (Apresoline) 10 mg Q4H PRN IV BP OVER 160 SYST 10/08/19 10:30 01/06/20 10:29 Hydralazine HCl (Apresoline) 100 mg Q8HR GT 10/10/19 14:00 01/08/20 05:59 10/12/19 06:14 Levothyroxine Sodium (Synthroid) 125 mcg DAILY@0630 ORAL 09/22/19 06:30 10/22/19 06:29 10/12/19 06:14 Losartan Potassium (Cozaar) 100 mg DAILY GT 10/06/19 09:00 11/05/19 08:59 10/11/19 09:26 Pantoprazole (Protonix) 40 mg EVERY 12 HOURS IVP 10/10/19 13:00 11/09/19 12:59 10/11/19 22:31 Prednisone (predniSONE) 20 mg DAILY ORAL 10/13/19 09:00 11/12/19 08:59 Psyllium Hydrophilic Mucilloid (Metamucil) 1 pkt DAILY ORAL 09/22/19 15:00 10/22/19 14:59 10/11/19 09:29 Laboratory Tests 10/12/19 03:36: White Blood Count 11.4H, Red Blood Count 2.79L, Hemoglobin 8.7L, Hematocrit 24.2L, Mean Corpuscular Volume 87, Mean Corpuscular Hemoglobin 31.4H, Mean Corpuscular Hemoglobin Concent 36.1H, Red Cell Distribution Width 13.7, Platelet Count 181, Mean Platelet Volume 5.5L, Neutrophils (%) (Auto) 74.1, Lymphocytes (%) (Auto) 22.9, Monocytes (%) (Auto) 2.6, Eosinophils (%) (Auto) 0.1, Basophils (%) (Auto) 0.2, Sodium Level 138, Potassium Level 3.6, Chloride Level 100, Carbon Dioxide Level 24, Anion Gap 14, Blood Urea Nitrogen 121H, Creatinine 3.2H, Estimat Glomerular Filtration Rate 13.9, Glucose Level 178H, Uric Acid 5.5, Calcium Level 7.9L, Phosphorus Level 4.4, Magnesium Level 2.4, Total Bilirubin 0.4, Aspartate Amino Transf (AST/SGOT) 64H, Alanine Aminotransferase (ALT/SGPT) 95H, Alkaline Phosphatase 296H, Total Creatine Kinase 27, C-Reactive Protein, Quantitative 3.9H, Pro-B-Type Natriuretic Peptide 97477A, Total Protein 6.2L, Albumin 1.8L, Globulin 4.4, Albumin/ Globulin Ratio 0.4L Height (Feet): 5 Height (Inches): 4.00 Weight (Pounds): 112 Neck: other - Trach and vent Cardiovascular: normal rate Respiratory/Chest: decreased breath sounds Abdomen: soft, other - PEG Objective no change William Blackwood MD Oct 12, 2019 14:10
--- NOTE | 2019-10-12 15:26 | Operative Note - PDOC ---
Operative Note Operative Note Date of Operation/Procedure: Oct 12, 2019 Chief Complaint: renal insufficiency Pre-op Diagnosis: renal insufficiency Procedure: right femoral temp HD catheter removal Post-op Diagnosis: same Post-op Diagnosis: same as pre-op Surgeon: johnny james Complications: none Condition: stable Fluids: none Estimated Blood Loss: minimal Drains: none Implant(s) used?: No Indications for Procedure d/c plan today line needs to be removed has right chest wall perm a cath now Description of Procedure patient made comfortable in supine position dressings removed sutures removed line removed pressure held for 15 minutes until hemostasis obtained dressings applied will monitor Camilo James Oct 12, 2019 15:26
[2019-10-12 16:00] VITALS: BP 142/67
--- NOTE | 2019-10-13 02:30 | Progress Note ---
DATE: 10/12/2019 CARDIOLOGY PROGRESS NOTE SUBJECTIVE: Patient remains on ventilator support. She continues to require hemodialysis with ultrafiltration 3 times a week. She remains on G-tube feedings without vomiting. PHYSICAL EXAMINATION: Her vital signs are stable. She maintained sinus rhythm with no significant arrhythmias. Physical exam remains unchanged. Her laboratory studies are reviewed and reveal continued slow improvement in liver function studies and finally some decrease in her natriuretic peptide assay. The patient is stable for transfer to a subacute facility. She will require continued ultrafiltration with negative fluid balance. Nutritional support with protein supplementation in the G-tube. 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 She is to complete her antibiotic regimen as instructed by Infectious Disease team. Abel Stubbs M.D. DR: NESS JOB#: [id number] CC:
--- NOTE | 2019-10-13 18:46 | Discharge Summary ---
Discharge Summary Discharge Summary _ DATE OF ADMISSION: 08/02/2019 DATE OF DISCHARGE: 10/12/2019 DISCHARGED BY: REASON FOR ADMISSION: [] 79 years old female with past medical history of cerebrovascular disease with dementia and history of cerebrovascular accident,, end-stage renal disease on hemodialysis, insulin requiring diabetes mellitus, hypertension with hypertensive heart disease, dysphagia, chronic kidney disease anemia of chronic kidney disease, congestive heart failure due to diastolic dysfunction, history of septic arthritis of the shoulder status post I&D, osteoarthritis, osteoporosis, degenerative disc disease, protein calorie malnutrition, aphasia, became hypotensive during dialysis. Patient was brought to emergency department for further evaluation. Patient received nasal oxygen via nasal cannula with improved blood pressure reading. Subsequently her blood pressure dropped again and she was bradycardic. Report evaluation WBC 3.1, hemoglobin 9.1 hematocrit 20.6 platelet count 50 Urinalysis revealed probable evidence of UTI and +3 protein. EKG revealed sinus bradycardia no acute ischemic changes chest x-ray revealed evidence of right permacath along with bilateral interstitial infiltrates versus edema. Laboratory work-up showed negative troponin elevated proBNP creatinine 1.5. Patient received antibiotics, 500 cc fluid bolus with slow improvement of blood pressure patient subsequently admitted to telemetry floor for further management CONSULTANTS: molder operator Dr. Stubbs neurologist pulmonary Dr. Cruz ID specialist Dr. Solares GI specialist Dr. Kwon director public service Dr. Blackwood audit mgr/oncologist surgery Dr. James [employer] Grinder Dr. gregory any [facility] psychiatrist HOSPITAL COURSE: [] Patient admitted to telemetry floor. Started on empiric antibiotics supplemental oxygen provided and titrated to keep oximetry above 92%. Nebulizing treatment provided. Patient developed respiratory distress and required nonrebreathing mask. Patient subsequently was placed on the BiPAP and transferred to ICU. Patient was follow-up with ABG and chest x-ray. Nebulizing treatment provided. Medical Orderly caution to avoid excessive suctioning with coagulopathy. Venous duplex bilateral lower extremity revealed no evidence of acute DVT. CT of the head revealed no acute intracranial findings. Chronic small vessel disease changes and chronic left frontal temporal infarct noted. Chest x-ray on 3 1 revealed completely opacified left hemithorax. Increased patchy opacity in the right lung base. Patient subsequently undergone chest ultrasound which showed small pleural effusion not warranting thoracentesis on a therapeutic basis. Blood culture revealed Klebsiella pneumonia ESBL urine culture revealed E. coli ESBL. Sputum culture showed Hailee. Repeated blood cultures were negative repeated. The blood culture on 3 1 showed 1 out of 2 bottles Hailee. Tunneled hemodialysis catheter was discontinued. Patient undergone placement of right femoral temporary hemodialysis catheter as per surgeon. Sputum culture on 2 different occasion was repeated and was negative. Blood culture was negative COVID-19 was done on 422 by PCR was not detected. Sputum culture showed Klebsiella pneumonia ESBL Enterobacter and Proteus mirabilis. Antibiotic optimized as per ID specialist recommendation. Patient completed all antibiotic while in the facility and was discharged off antibiotics no fever no leukocytosis upon discharge FINAL DIAGNOSES: Klebsiella/Enterobacter/Proteus pneumonia Suspected COVID-19 infection rule out History of right shoulder septic arthritis with a staph aureus status post treatment Status post chemotherapy with Elimite Respiratory failure Hypoxemia Hemoptysis Toxic metabolic encephalopathy Severe protein calorie malnutrition Cachexia Chronic renal failure Hypotension Diabetes mellitus Thrombocytopenia Pleural effusion Hypotension DISCHARGE MEDICATIONS: See Medication Reconciliation list. DISCHARGE INSTRUCTIONS: [] [facility] Follow up with medical doctor at the facility. I have been assigned to dictate discharge summary for this account. I was not involved in the patient's management. Kathi Aguero NP Oct 13, 2019 18:46
== END 2019-10-12 17:20 | DRG 4 ==
LOC: EDBD 16:09 → EMR 18:12 → 2E 18:25 → EDBEDREQ 18:46 → 2E 08-03 20:44 → 4E 08-04 17:18 → ICU 08-09 11:21 → 2W 09-10 17:20 → 2E 09-13 11:13 → 2W 09-23 23:02
PROC: 5A1D70Z Performance of Urinary Filtration, Intermittent, Less than 6 Hours Per Day (ICD-10-PCS; 2019-08-07)
PROC: 0JPT3XZ Removal of Tunneled Vascular Access Device from Trunk Subcutaneous Tissue and Fascia, Percutaneous Approach (ICD-10-PCS; principal; 2019-08-12)
PROC: 05PY33Z Removal of Infusion Device from Upper Vein, Percutaneous Approach (ICD-10-PCS; principal; 2019-08-12)
PROC: 06HM33Z Insertion of Infusion Device into Right Femoral Vein, Percutaneous Approach (ICD-10-PCS; 2019-08-15)
PROC: 5A1955Z Respiratory Ventilation, Greater than 96 Consecutive Hours (ICD-10-PCS; 2019-08-17)
PROC: 0DH63UZ Insertion of Feeding Device into Stomach, Percutaneous Approach (ICD-10-PCS; 2019-08-17)
PROC: 0BH17EZ Insertion of Endotracheal Airway into Trachea, Via Natural or Artificial Opening (ICD-10-PCS; 2019-08-17)
PROC: 0DD38ZX Extraction of Lower Esophagus, Via Natural or Artificial Opening Endoscopic, Diagnostic (ICD-10-PCS; 2019-08-17)
PROC: 0W9B3ZZ Drainage of Left Pleural Cavity, Percutaneous Approach (ICD-10-PCS; 2019-08-30)
PROC: 0W9B30Z Drainage of Left Pleural Cavity with Drainage Device, Percutaneous Approach (ICD-10-PCS; 2019-09-02)
PROC: 0WPBX0Z Removal of Drainage Device from Left Pleural Cavity, External Approach (ICD-10-PCS; 2019-09-08)
PROC: 0B110F4 Bypass Trachea to Cutaneous with Tracheostomy Device, Open Approach (ICD-10-PCS; 2019-09-08)
PROC: 0JH63XZ Insertion of Tunneled Vascular Access Device into Chest Subcutaneous Tissue and Fascia, Percutaneous Approach (ICD-10-PCS; 2019-10-07)
PROC: B513ZZA Fluoroscopy of Right Jugular Veins, Guidance (ICD-10-PCS; 2019-10-07)
PROC: 0W9B3ZZ Drainage of Left Pleural Cavity, Percutaneous Approach (ICD-10-PCS; 2019-10-07)
PROC: 05HM33Z Insertion of Infusion Device into Right Internal Jugular Vein, Percutaneous Approach (ICD-10-PCS; 2019-10-07)
DX: A41.89 Other specified sepsis (principal); N18.6 End stage renal disease; E43 Unspecified severe protein-calorie malnutrition; R65.21 Severe sepsis with septic shock; I50.33 Acute on chronic diastolic (congestive) heart failure; J15.6 Pneumonia due to other Gram-negative bacteria; J15.0 Pneumonia due to Klebsiella pneumoniae; J96.21 Acute and chronic respiratory failure with hypoxia; G92 Toxic encephalopathy; I21.4 Non-ST elevation (NSTEMI) myocardial infarction; K72.00 Acute and subacute hepatic failure without coma; I13.2 Hypertensive heart and chronic kidney disease with heart failure and with stage 5 chronic kidney disease, or end stage renal disease; R04.2 Hemoptysis; J91.8 Pleural effusion in other conditions classified elsewhere; M00.9 Pyogenic arthritis, unspecified; N39.0 Urinary tract infection, site not specified; L02.415 Cutaneous abscess of right lower limb; D68.9 Coagulation defect, unspecified; E87.0 Hyperosmolality and hypernatremia; K22.10 Ulcer of esophagus without bleeding; J98.11 Atelectasis; J94.2 Hemothorax; K92.0 Hematemesis; Z99.11 Dependence on respirator [ventilator] status; B37.7 Candidal sepsis; E11.22 Type 2 diabetes mellitus with diabetic chronic kidney disease; Z99.2 Dependence on renal dialysis; Z79.4 Long term (current) use of insulin; I49.5 Sick sinus syndrome; F03.90 Unspecified dementia, unspecified severity, without behavioral disturbance, psychotic disturbance, mood disturbance, and anxiety; Z86.73 Personal history of transient ischemic attack (TIA), and cerebral infarction without residual deficits; R13.10 Dysphagia, unspecified; D69.6 Thrombocytopenia, unspecified; I95.3 Hypotension of hemodialysis; R62.7 Adult failure to thrive; D63.1 Anemia in chronic kidney disease; Y95 Nosocomial condition; B96.20 Unspecified Escherichia coli [E. coli] as the cause of diseases classified elsewhere; E03.9 Hypothyroidism, unspecified; E86.0 Dehydration; K74.60 Unspecified cirrhosis of liver; Z20.828 Contact with and (suspected) exposure to other viral communicable diseases; B86 Scabies; E87.6 Hypokalemia; R00.1 Bradycardia, unspecified
CPT/HCPCS: 36415; 36569; 36589; 36600; 70450; 71045; 71250; 74018; 74176; 74177; 76000; 76604; 76700; 76937; 76942; 80048; 80053; 80061; 80076; 81003; 82105; 82140; 82150; 82270; 82533; 82550; 82553; 82607; 82728; 82746; 82784; 82803; 82962; 82977; 83036; 83540; 83550; 83605; 83615; 83690; 83735; 83880; 84100; 84439; 84443; 84481; 84484; 84550; 85007; 85025; 85610; 85651; 85730; 86039; 86140; 86235; 86706; 86707; 86803; 86850; 86900; 86901; 86920; 87040; 87045; 87070; 87081; 87086; 87181; 87205; 87635; 93005; 93306; 93970; 94002; 94003; 94150; 94640; 94660; 94664; 96365; 96375; 99291; J1815; J2765; J7030; J7620